=== PATIENT | female | born 1960 | race Caucasian/White ===

== ENCOUNTER → 2017-11-25 09:04 | Inpatient (IN) | END | DRG 92 | DX: G71.11 Myotonic muscular dystrophy (principal); S82.209A Unspecified fracture of shaft of unspecified tibia, initial encounter for closed fracture; M54.9 Dorsalgia, unspecified; E78.5 Hyperlipidemia, unspecified; F41.8 Other specified anxiety disorders; K21.9 Gastro-esophageal reflux disease without esophagitis; E03.9 Hypothyroidism, unspecified; E53.8 Deficiency of other specified B group vitamins; I50.9 Heart failure, unspecified; J44.9 Chronic obstructive pulmonary disease, unspecified; R73.9 Hyperglycemia, unspecified; I95.1 Orthostatic hypotension; D18.03 Hemangioma of intra-abdominal structures; M19.90 Unspecified osteoarthritis, unspecified site; Z88.1 Allergy status to other antibiotic agents; Z88.5 Allergy status to narcotic agent; Z91.048 Other nonmedicinal substance allergy status; W19.XXXA Unspecified fall, initial encounter ==

== ENCOUNTER → 2019-05-24 11:44 | Inpatient (IN) | payer MEDICAID ==
[2017-11-25] MEDS: Potassium Chloride 10% 20 MEQ/15 ML Soln 15 ML UD Cup PO SCH ×2 (13:54→19:21)
[2017-11-25] MEDS: Metoclopramide 10 MG Tab PO SCH (17:22)
[2017-11-25] MEDS: CEPHALEXIN 500 MG PO SCH (17:22)
[2017-11-25] MEDS: Ibuprofen 600 MG Tab PO SCH (17:23)
[2017-11-25] MEDS: Niacin 500 MG Tab PO SCH (17:23)
[2017-11-25] MEDS: Fludrocortisone 0.1 MG Tab PO SCH (19:20)
[2017-11-25] MEDS: Albuterol/Ipratropium 3.0-0.5 MG/3 ML Neb Soln NEB SCH (19:20)
[2017-11-25] MEDS: Chlorhexidine Gluconate 0.12% Oral Rinse 15 ML Cup MUCMEM SCH (19:21)
[2017-11-25] MEDS: LEVOTHYROXINE SODIUM 137 MCG PO SCH (19:21)
[2017-11-25] MEDS: Simvastatin 10 MG Tab PO SCH (19:22)
[2017-11-25] MEDS: buPROPion 100 MG Tab PO SCH (19:22)
[2017-11-26] MEDS: CEPHALEXIN 500 MG PO SCH ×2 (08:14→17:35)
[2017-11-26] MEDS: Metoclopramide 10 MG Tab PO SCH ×2 (08:14→17:35)
[2017-11-26] MEDS: Citalopram 20 MG Tab PO SCH (08:14)
[2017-11-26] MEDS: Albuterol/Ipratropium 3.0-0.5 MG/3 ML Neb Soln NEB SCH ×2 (08:15→19:20)
[2017-11-26] MEDS: Fludrocortisone 0.1 MG Tab PO SCH ×2 (08:15→19:20)
[2017-11-26] MEDS: Ibuprofen 600 MG Tab PO SCH ×2 (08:17→17:36)
[2017-11-26] MEDS: Niacin 500 MG Tab PO SCH ×2 (08:17→17:37)
[2017-11-26] MEDS: Omeprazole 20 MG Cap.CR PO SCH (08:18)
[2017-11-26] MEDS: Potassium Chloride 10% 20 MEQ/15 ML Soln 15 ML UD Cup PO SCH ×3 (08:19→19:21)
[2017-11-26] MEDS: Cholecalciferol (Vitamin D3) 25 MCG Tab PO SCH (08:20)
[2017-11-26] MEDS: Cyanocobalamin (Vitamin B12) 1,000 MCG Tab PO SCH (08:20)
[2017-11-26] MEDS: Chlorhexidine Gluconate 0.12% Oral Rinse 15 ML Cup MUCMEM SCH ×2 (08:21→19:20)
[2017-11-26] MEDS: LEVOTHYROXINE SODIUM 137 MCG PO SCH (19:20)
[2017-11-26] MEDS: buPROPion 100 MG Tab PO SCH (19:21)
[2017-11-26] MEDS: Simvastatin 10 MG Tab PO SCH (19:21)
[2017-11-26] MEDS: Acetaminophen 325 MG Tab PO PRN (19:23)
[2017-11-26] MEDS: traMADol 50 MG Tab PO PRN (19:24)
[2017-11-26] MEDS: Clotrimazole 1% Crm 30 GM Tube TOP PRN (19:27)
[2017-11-27] MEDS: Clotrimazole 1% Crm 30 GM Tube TOP PRN (07:30)
[2017-11-27] MEDS: Metoclopramide 10 MG Tab PO SCH ×2 (08:15→17:50)
[2017-11-27] MEDS: Citalopram 20 MG Tab PO SCH (08:16)
[2017-11-27] MEDS: Albuterol/Ipratropium 3.0-0.5 MG/3 ML Neb Soln NEB SCH ×2 (08:16→19:21)
[2017-11-27] MEDS: CEPHALEXIN 500 MG PO SCH ×2 (08:16→17:50)
[2017-11-27] MEDS: Fludrocortisone 0.1 MG Tab PO SCH ×2 (08:17→19:22)
[2017-11-27] MEDS: Niacin 500 MG Tab PO SCH ×2 (08:17→17:51)
[2017-11-27] MEDS: Ibuprofen 600 MG Tab PO SCH ×2 (08:17→17:50)
[2017-11-27] MEDS: Omeprazole 20 MG Cap.CR PO SCH (08:18)
[2017-11-27] MEDS: Potassium Chloride 10% 20 MEQ/15 ML Soln 15 ML UD Cup PO SCH ×3 (08:19→19:22)
[2017-11-27] MEDS: Cyanocobalamin (Vitamin B12) 1,000 MCG Tab PO SCH (08:20)
[2017-11-27] MEDS: Cholecalciferol (Vitamin D3) 25 MCG Tab PO SCH (08:20)
[2017-11-27] MEDS: Chlorhexidine Gluconate 0.12% Oral Rinse 15 ML Cup MUCMEM SCH ×2 (08:21→19:22)
[2017-11-27] MEDS: traMADol 50 MG Tab PO PRN (08:28)
[2017-11-27] MEDS: Acetaminophen 325 MG Tab PO PRN (08:30)
[2017-11-27] MEDS: LEVOTHYROXINE SODIUM 137 MCG PO SCH (19:22)
[2017-11-27] MEDS: Simvastatin 10 MG Tab PO SCH (19:23)
[2017-11-27] MEDS: buPROPion 100 MG Tab PO SCH (19:23)
[2017-11-28] MEDS: Clotrimazole 1% Crm 30 GM Tube TOP PRN ×2 (08:00→21:27)
[2017-11-28] MEDS: Citalopram 20 MG Tab PO SCH (08:23)
[2017-11-28] MEDS: Metoclopramide 10 MG Tab PO SCH ×2 (08:23→17:33)
[2017-11-28] MEDS: Albuterol/Ipratropium 3.0-0.5 MG/3 ML Neb Soln NEB SCH ×2 (08:24→19:13)
[2017-11-28] MEDS: Fludrocortisone 0.1 MG Tab PO SCH ×2 (08:24→19:13)
[2017-11-28] MEDS: CEPHALEXIN 500 MG PO SCH ×2 (08:24→17:33)
[2017-11-28] MEDS: Ibuprofen 600 MG Tab PO SCH ×2 (08:24→17:33)
[2017-11-28] MEDS: Niacin 500 MG Tab PO SCH ×2 (08:25→17:33)
[2017-11-28] MEDS: Cyanocobalamin (Vitamin B12) 1,000 MCG Tab PO SCH (08:25)
[2017-11-28] MEDS: Omeprazole 20 MG Cap.CR PO SCH (08:25)
[2017-11-28] MEDS: Cholecalciferol (Vitamin D3) 25 MCG Tab PO SCH (08:26)
[2017-11-28] MEDS: Chlorhexidine Gluconate 0.12% Oral Rinse 15 ML Cup MUCMEM SCH ×2 (08:26→19:14)
[2017-11-28] MEDS: Potassium Chloride 10% 20 MEQ/15 ML Soln 15 ML UD Cup PO SCH ×3 (08:26→19:14)
[2017-11-28] MEDS: Acetaminophen 325 MG Tab PO PRN (10:08)
[2017-11-28] MEDS: traMADol 50 MG Tab PO PRN (10:09)
[2017-11-28] MEDS: LEVOTHYROXINE SODIUM 137 MCG PO SCH (19:14)
[2017-11-28] MEDS: Simvastatin 10 MG Tab PO SCH (19:15)
[2017-11-28] MEDS: buPROPion 100 MG Tab PO SCH (19:15)
[2017-11-29] MEDS: Metoclopramide 10 MG Tab PO SCH ×2 (08:04→18:10)
[2017-11-29] MEDS: CEPHALEXIN 500 MG PO SCH ×2 (08:07→18:10)
[2017-11-29] MEDS: Albuterol/Ipratropium 3.0-0.5 MG/3 ML Neb Soln NEB SCH ×2 (08:07→19:09)
[2017-11-29] MEDS: Fludrocortisone 0.1 MG Tab PO SCH ×2 (08:07→19:09)
[2017-11-29] MEDS: Citalopram 20 MG Tab PO SCH (08:07)
[2017-11-29] MEDS: Niacin 500 MG Tab PO SCH ×2 (08:08→18:11)
[2017-11-29] MEDS: Ibuprofen 600 MG Tab PO SCH ×2 (08:08→18:10)
[2017-11-29] MEDS: Omeprazole 20 MG Cap.CR PO SCH (08:08)
[2017-11-29] MEDS: Potassium Chloride 10% 20 MEQ/15 ML Soln 15 ML UD Cup PO SCH ×3 (08:09→19:10)
[2017-11-29] MEDS: Cholecalciferol (Vitamin D3) 25 MCG Tab PO SCH (08:10)
[2017-11-29] MEDS: Chlorhexidine Gluconate 0.12% Oral Rinse 15 ML Cup MUCMEM SCH ×2 (08:10→19:10)
[2017-11-29] MEDS: Cyanocobalamin (Vitamin B12) 1,000 MCG Tab PO SCH (08:10)
[2017-11-29] MEDS: LEVOTHYROXINE SODIUM 137 MCG PO SCH (19:10)
[2017-11-29] MEDS: Simvastatin 10 MG Tab PO SCH (19:11)
[2017-11-29] MEDS: buPROPion 100 MG Tab PO SCH (19:11)
[2017-11-29] MEDS: Clotrimazole 1% Crm 30 GM Tube TOP PRN (20:35)
[2017-11-30] MEDS: CEPHALEXIN 500 MG PO SCH ×2 (08:02→17:11)
[2017-11-30] MEDS: Citalopram 20 MG Tab PO SCH (08:02)
[2017-11-30] MEDS: Metoclopramide 10 MG Tab PO SCH ×2 (08:02→16:53)
[2017-11-30] MEDS: Albuterol/Ipratropium 3.0-0.5 MG/3 ML Neb Soln NEB SCH ×2 (08:03→19:29)
[2017-11-30] MEDS: Ibuprofen 600 MG Tab PO SCH ×2 (08:03→17:11)
[2017-11-30] MEDS: Fludrocortisone 0.1 MG Tab PO SCH ×2 (08:03→19:30)
[2017-11-30] MEDS: Omeprazole 20 MG Cap.CR PO SCH (08:04)
[2017-11-30] MEDS: Potassium Chloride 10% 20 MEQ/15 ML Soln 15 ML UD Cup PO SCH ×3 (08:04→19:30)
[2017-11-30] MEDS: Cyanocobalamin (Vitamin B12) 1,000 MCG Tab PO SCH (08:04)
[2017-11-30] MEDS: Niacin 500 MG Tab PO SCH ×2 (08:04→17:12)
[2017-11-30] MEDS: Cholecalciferol (Vitamin D3) 25 MCG Tab PO SCH (08:05)
[2017-11-30] MEDS: Chlorhexidine Gluconate 0.12% Oral Rinse 15 ML Cup MUCMEM SCH ×2 (08:06→19:30)
[2017-11-30] MEDS: Clotrimazole 1% Crm 30 GM Tube TOP PRN ×2 (08:06→19:32)
[2017-11-30] MEDS: Albuterol/Ipratropium 3.0-0.5 MG/3 ML Neb Soln NEB PRN (19:29)
[2017-11-30] MEDS: LEVOTHYROXINE SODIUM 137 MCG PO SCH (19:30)
[2017-11-30] MEDS: Simvastatin 10 MG Tab PO SCH (19:31)
[2017-11-30] MEDS: buPROPion 100 MG Tab PO SCH (19:31)
[2017-12-01] MEDS: Citalopram 20 MG Tab PO SCH (08:02)
[2017-12-01] MEDS: Metoclopramide 10 MG Tab PO SCH ×2 (08:02→17:56)
[2017-12-01] MEDS: CEPHALEXIN 500 MG PO SCH ×2 (08:02→17:56)
[2017-12-01] MEDS: Fludrocortisone 0.1 MG Tab PO SCH ×2 (08:03→19:27)
[2017-12-01] MEDS: Albuterol/Ipratropium 3.0-0.5 MG/3 ML Neb Soln NEB SCH ×2 (08:03→19:26)
[2017-12-01] MEDS: Ibuprofen 600 MG Tab PO SCH ×2 (08:03→17:57)
[2017-12-01] MEDS: Niacin 500 MG Tab PO SCH ×2 (08:04→17:58)
[2017-12-01] MEDS: Omeprazole 20 MG Cap.CR PO SCH (08:04)
[2017-12-01] MEDS: Potassium Chloride 10% 20 MEQ/15 ML Soln 15 ML UD Cup PO SCH ×3 (08:04→19:29)
[2017-12-01] MEDS: Cholecalciferol (Vitamin D3) 25 MCG Tab PO SCH (08:05)
[2017-12-01] MEDS: Chlorhexidine Gluconate 0.12% Oral Rinse 15 ML Cup MUCMEM SCH ×2 (08:05→19:27)
[2017-12-01] MEDS: Cyanocobalamin (Vitamin B12) 1,000 MCG Tab PO SCH (08:05)
[2017-12-01] MEDS: Clotrimazole 1% Crm 30 GM Tube TOP PRN (08:06)
[2017-12-01] MEDS: LEVOTHYROXINE SODIUM 137 MCG PO SCH (19:27)
[2017-12-01] MEDS: buPROPion 100 MG Tab PO SCH (19:29)
[2017-12-01] MEDS: Simvastatin 10 MG Tab PO SCH (19:29)
[2017-12-02] MEDS: Clotrimazole 1% Crm 30 GM Tube TOP PRN ×2 (08:00→20:24)
[2017-12-02] MEDS: Albuterol/Ipratropium 3.0-0.5 MG/3 ML Neb Soln NEB SCH ×2 (08:06→19:23)
[2017-12-02] MEDS: Metoclopramide 10 MG Tab PO SCH ×2 (08:06→17:34)
[2017-12-02] MEDS: CEPHALEXIN 500 MG PO SCH ×2 (08:06→17:34)
[2017-12-02] MEDS: Citalopram 20 MG Tab PO SCH (08:06)
[2017-12-02] MEDS: Ibuprofen 600 MG Tab PO SCH ×2 (08:07→17:34)
[2017-12-02] MEDS: Fludrocortisone 0.1 MG Tab PO SCH ×2 (08:07→19:23)
[2017-12-02] MEDS: Niacin 500 MG Tab PO SCH ×2 (08:07→17:34)
[2017-12-02] MEDS: Cholecalciferol (Vitamin D3) 25 MCG Tab PO SCH (08:08)
[2017-12-02] MEDS: Omeprazole 20 MG Cap.CR PO SCH (08:08)
[2017-12-02] MEDS: Cyanocobalamin (Vitamin B12) 1,000 MCG Tab PO SCH (08:08)
[2017-12-02] MEDS: Potassium Chloride 10% 20 MEQ/15 ML Soln 15 ML UD Cup PO SCH ×3 (08:09→19:23)
[2017-12-02] MEDS: Chlorhexidine Gluconate 0.12% Oral Rinse 15 ML Cup MUCMEM SCH ×2 (08:09→19:23)
[2017-12-02] MEDS: LEVOTHYROXINE SODIUM 137 MCG PO SCH (19:23)
[2017-12-02] MEDS: buPROPion 100 MG Tab PO SCH (19:25)
[2017-12-02] MEDS: Simvastatin 10 MG Tab PO SCH (19:25)
[2017-12-03] MEDS: Citalopram 20 MG Tab PO SCH (08:04)
[2017-12-03] MEDS: CEPHALEXIN 500 MG PO SCH ×2 (08:04→17:53)
[2017-12-03] MEDS: Metoclopramide 10 MG Tab PO SCH ×2 (08:04→17:53)
[2017-12-03] MEDS: Albuterol/Ipratropium 3.0-0.5 MG/3 ML Neb Soln NEB SCH ×2 (08:05→19:13)
[2017-12-03] MEDS: Ibuprofen 600 MG Tab PO SCH ×2 (08:05→17:53)
[2017-12-03] MEDS: Fludrocortisone 0.1 MG Tab PO SCH ×2 (08:05→19:14)
[2017-12-03] MEDS: Omeprazole 20 MG Cap.CR PO SCH (08:06)
[2017-12-03] MEDS: Potassium Chloride 10% 20 MEQ/15 ML Soln 15 ML UD Cup PO SCH ×3 (08:08→19:15)
[2017-12-03] MEDS: Cyanocobalamin (Vitamin B12) 1,000 MCG Tab PO SCH (08:08)
[2017-12-03] MEDS: Cholecalciferol (Vitamin D3) 25 MCG Tab PO SCH (08:09)
[2017-12-03] MEDS: Chlorhexidine Gluconate 0.12% Oral Rinse 15 ML Cup MUCMEM SCH ×2 (08:10→19:15)
[2017-12-03] MEDS: Niacin 500 MG Tab PO SCH ×2 (09:15→17:54)
[2017-12-03] MEDS: Clotrimazole 1% Crm 30 GM Tube TOP PRN (19:12)
[2017-12-03] MEDS: buPROPion 100 MG Tab PO SCH (19:13)
[2017-12-03] MEDS: FLUCONAZOLE 150MG TABLET PO SCH (19:14)
[2017-12-03] MEDS: LEVOTHYROXINE SODIUM 137 MCG PO SCH (19:14)
[2017-12-03] MEDS: Simvastatin 10 MG Tab PO SCH (19:16)
[2017-12-04] MEDS: Citalopram 20 MG Tab PO SCH (07:54)
[2017-12-04] MEDS: Metoclopramide 10 MG Tab PO SCH ×2 (07:54→17:59)
[2017-12-04] MEDS: CEPHALEXIN 500 MG PO SCH ×2 (07:55→17:59)
[2017-12-04] MEDS: Albuterol/Ipratropium 3.0-0.5 MG/3 ML Neb Soln NEB SCH ×2 (07:55→19:26)
[2017-12-04] MEDS: Omeprazole 20 MG Cap.CR PO SCH (07:57)
[2017-12-04] MEDS: Fludrocortisone 0.1 MG Tab PO SCH ×2 (07:57→19:27)
[2017-12-04] MEDS: Ibuprofen 600 MG Tab PO SCH ×2 (07:57→17:59)
[2017-12-04] MEDS: Niacin 500 MG Tab PO SCH ×2 (07:57→18:00)
[2017-12-04] MEDS: Cyanocobalamin (Vitamin B12) 1,000 MCG Tab PO SCH (07:58)
[2017-12-04] MEDS: Cholecalciferol (Vitamin D3) 25 MCG Tab PO SCH (07:58)
[2017-12-04] MEDS: Chlorhexidine Gluconate 0.12% Oral Rinse 15 ML Cup MUCMEM SCH ×2 (08:00→19:28)
[2017-12-04] MEDS: Potassium Chloride 10% 20 MEQ/15 ML Soln 15 ML UD Cup PO SCH ×3 (08:00→19:28)
[2017-12-04] MEDS: Clotrimazole 1% Crm 30 GM Tube TOP PRN (08:00)
[2017-12-04] MEDS: buPROPion 100 MG Tab PO SCH (19:27)
[2017-12-04] MEDS: Simvastatin 10 MG Tab PO SCH (19:27)
[2017-12-04] MEDS: LEVOTHYROXINE SODIUM 137 MCG PO SCH (19:27)
[2017-12-05] MEDS: traMADol 50 MG Tab PO PRN ×2 (04:39→17:32)
[2017-12-05] MEDS: Acetaminophen 325 MG Tab PO PRN (04:40)
[2017-12-05] MEDS: Citalopram 20 MG Tab PO SCH (08:11)
[2017-12-05] MEDS: CEPHALEXIN 500 MG PO SCH ×2 (08:11→17:26)
[2017-12-05] MEDS: Metoclopramide 10 MG Tab PO SCH ×2 (08:11→17:26)
[2017-12-05] MEDS: Albuterol/Ipratropium 3.0-0.5 MG/3 ML Neb Soln NEB SCH ×2 (08:12→19:17)
[2017-12-05] MEDS: Ibuprofen 600 MG Tab PO SCH ×2 (08:13→17:27)
[2017-12-05] MEDS: Fludrocortisone 0.1 MG Tab PO SCH ×2 (08:13→19:17)
[2017-12-05] MEDS: Omeprazole 20 MG Cap.CR PO SCH (08:14)
[2017-12-05] MEDS: Niacin 500 MG Tab PO SCH ×2 (08:14→17:28)
[2017-12-05] MEDS: Potassium Chloride 10% 20 MEQ/15 ML Soln 15 ML UD Cup PO SCH ×3 (08:16→19:16)
[2017-12-05] MEDS: Cyanocobalamin (Vitamin B12) 1,000 MCG Tab PO SCH (08:17)
[2017-12-05] MEDS: Cholecalciferol (Vitamin D3) 25 MCG Tab PO SCH (08:18)
[2017-12-05] MEDS: Chlorhexidine Gluconate 0.12% Oral Rinse 15 ML Cup MUCMEM SCH ×2 (08:18→19:16)
[2017-12-05] MEDS: Simvastatin 10 MG Tab PO SCH (19:16)
[2017-12-05] MEDS: buPROPion 100 MG Tab PO SCH (19:16)
[2017-12-05] MEDS: LEVOTHYROXINE SODIUM 137 MCG PO SCH (19:16)
[2017-12-06] MEDS: Metoclopramide 10 MG Tab PO SCH ×2 (07:31→17:13)
[2017-12-06] MEDS: CEPHALEXIN 500 MG PO SCH ×2 (07:31→17:13)
[2017-12-06] MEDS: Fludrocortisone 0.1 MG Tab PO SCH ×2 (07:31→19:12)
[2017-12-06] MEDS: Citalopram 20 MG Tab PO SCH (07:31)
[2017-12-06] MEDS: Albuterol/Ipratropium 3.0-0.5 MG/3 ML Neb Soln NEB SCH ×2 (07:31→19:18)
[2017-12-06] MEDS: Ibuprofen 600 MG Tab PO SCH ×2 (07:32→17:13)
[2017-12-06] MEDS: Potassium Chloride 10% 20 MEQ/15 ML Soln 15 ML UD Cup PO SCH ×3 (07:33→19:16)
[2017-12-06] MEDS: Omeprazole 20 MG Cap.CR PO SCH (07:33)
[2017-12-06] MEDS: Niacin 500 MG Tab PO SCH ×2 (07:33→17:14)
[2017-12-06] MEDS: Cholecalciferol (Vitamin D3) 25 MCG Tab PO SCH (07:34)
[2017-12-06] MEDS: Cyanocobalamin (Vitamin B12) 1,000 MCG Tab PO SCH (07:34)
[2017-12-06] MEDS: Chlorhexidine Gluconate 0.12% Oral Rinse 15 ML Cup MUCMEM SCH ×2 (09:35→19:15)
[2017-12-06] MEDS: LEVOTHYROXINE SODIUM 137 MCG PO SCH (19:12)
[2017-12-06] MEDS: FLUCONAZOLE 150MG TABLET PO SCH (19:13)
[2017-12-06] MEDS: buPROPion 100 MG Tab PO SCH (19:17)
[2017-12-06] MEDS: Simvastatin 10 MG Tab PO SCH (19:17)
[2017-12-06] MEDS: Clotrimazole 1% Crm 30 GM Tube TOP PRN (19:53)
[2017-12-07] MEDS: traMADol 50 MG Tab PO PRN ×2 (05:32→18:24)
[2017-12-07] MEDS: Acetaminophen 325 MG Tab PO PRN ×2 (05:34→18:23)
[2017-12-07] MEDS: Ibuprofen 600 MG Tab PO SCH ×2 (07:29→17:09)
[2017-12-07] MEDS: Metoclopramide 10 MG Tab PO SCH ×2 (07:29→17:09)
[2017-12-07] MEDS: CEPHALEXIN 500 MG PO SCH ×2 (07:29→17:09)
[2017-12-07] MEDS: Citalopram 20 MG Tab PO SCH (07:29)
[2017-12-07] MEDS: Albuterol/Ipratropium 3.0-0.5 MG/3 ML Neb Soln NEB SCH ×2 (07:29→19:27)
[2017-12-07] MEDS: Fludrocortisone 0.1 MG Tab PO SCH ×2 (07:29→19:27)
[2017-12-07] MEDS: Niacin 500 MG Tab PO SCH ×2 (07:30→17:09)
[2017-12-07] MEDS: Omeprazole 20 MG Cap.CR PO SCH (07:30)
[2017-12-07] MEDS: Potassium Chloride 10% 20 MEQ/15 ML Soln 15 ML UD Cup PO SCH ×3 (07:30→19:29)
[2017-12-07] MEDS: Cyanocobalamin (Vitamin B12) 1,000 MCG Tab PO SCH (07:31)
[2017-12-07] MEDS: Cholecalciferol (Vitamin D3) 25 MCG Tab PO SCH (07:31)
[2017-12-07] MEDS: Chlorhexidine Gluconate 0.12% Oral Rinse 15 ML Cup MUCMEM SCH ×2 (08:09→19:27)
[2017-12-07] MEDS: LEVOTHYROXINE SODIUM 137 MCG PO SCH (19:28)
[2017-12-07] MEDS: Simvastatin 10 MG Tab PO SCH (19:30)
[2017-12-07] MEDS: buPROPion 100 MG Tab PO SCH (19:30)
[2017-12-07] MEDS: Clotrimazole 1% Crm 30 GM Tube TOP PRN (19:34)
[2017-12-08] MEDS: Metoclopramide 10 MG Tab PO SCH ×2 (07:21→17:57)
[2017-12-08] MEDS: Albuterol/Ipratropium 3.0-0.5 MG/3 ML Neb Soln NEB SCH ×2 (07:21→19:22)
[2017-12-08] MEDS: Fludrocortisone 0.1 MG Tab PO SCH ×2 (07:21→19:21)
[2017-12-08] MEDS: CEPHALEXIN 500 MG PO SCH ×2 (07:21→17:57)
[2017-12-08] MEDS: Citalopram 20 MG Tab PO SCH (07:21)
[2017-12-08] MEDS: Niacin 500 MG Tab PO SCH ×2 (07:22→17:58)
[2017-12-08] MEDS: Ibuprofen 600 MG Tab PO SCH ×2 (07:22→17:57)
[2017-12-08] MEDS: Omeprazole 20 MG Cap.CR PO SCH (07:22)
[2017-12-08] MEDS: Acetaminophen 325 MG Tab PO PRN ×2 (07:23→19:18)
[2017-12-08] MEDS: Potassium Chloride 10% 20 MEQ/15 ML Soln 15 ML UD Cup PO SCH ×3 (07:23→19:20)
[2017-12-08] MEDS: Cyanocobalamin (Vitamin B12) 1,000 MCG Tab PO SCH (07:23)
[2017-12-08] MEDS: Cholecalciferol (Vitamin D3) 25 MCG Tab PO SCH (07:23)
[2017-12-08] MEDS: traMADol 50 MG Tab PO PRN ×2 (07:24→19:17)
[2017-12-08] MEDS: Chlorhexidine Gluconate 0.12% Oral Rinse 15 ML Cup MUCMEM SCH ×2 (08:31→19:22)
[2017-12-08] MEDS: Simvastatin 10 MG Tab PO SCH (19:21)
[2017-12-08] MEDS: LEVOTHYROXINE SODIUM 137 MCG PO SCH (19:21)
[2017-12-08] MEDS: buPROPion 100 MG Tab PO SCH (19:21)
[2017-12-09] MEDS: Metoclopramide 10 MG Tab PO SCH ×2 (08:10→17:24)
[2017-12-09] MEDS: CEPHALEXIN 500 MG PO SCH ×2 (08:11→17:24)
[2017-12-09] MEDS: Citalopram 20 MG Tab PO SCH (08:11)
[2017-12-09] MEDS: Fludrocortisone 0.1 MG Tab PO SCH ×2 (08:12→19:17)
[2017-12-09] MEDS: Ibuprofen 600 MG Tab PO SCH ×2 (08:12→17:24)
[2017-12-09] MEDS: Albuterol/Ipratropium 3.0-0.5 MG/3 ML Neb Soln NEB SCH ×2 (08:12→19:14)
[2017-12-09] MEDS: Omeprazole 20 MG Cap.CR PO SCH (08:13)
[2017-12-09] MEDS: Niacin 500 MG Tab PO SCH ×2 (08:13→17:25)
[2017-12-09] MEDS: Cholecalciferol (Vitamin D3) 25 MCG Tab PO SCH (08:14)
[2017-12-09] MEDS: Chlorhexidine Gluconate 0.12% Oral Rinse 15 ML Cup MUCMEM SCH ×2 (08:14→19:18)
[2017-12-09] MEDS: Cyanocobalamin (Vitamin B12) 1,000 MCG Tab PO SCH (08:14)
[2017-12-09] MEDS: Potassium Chloride 10% 20 MEQ/15 ML Soln 15 ML UD Cup PO SCH ×3 (08:15→19:19)
[2017-12-09] MEDS: LEVOTHYROXINE SODIUM 137 MCG PO SCH (19:17)
[2017-12-09] MEDS: Clotrimazole 1% Crm 30 GM Tube TOP PRN (19:18)
[2017-12-09] MEDS: buPROPion 100 MG Tab PO SCH (19:18)
[2017-12-09] MEDS: Simvastatin 10 MG Tab PO SCH (19:19)
[2017-12-09] MEDS: Acetaminophen 325 MG Tab PO PRN (19:20)
[2017-12-09] MEDS: traMADol 50 MG Tab PO PRN (19:26)
[2017-12-10] MEDS: Metoclopramide 10 MG Tab PO SCH ×2 (07:57→17:52)
[2017-12-10] MEDS: Fludrocortisone 0.1 MG Tab PO SCH ×2 (07:58→19:54)
[2017-12-10] MEDS: Albuterol/Ipratropium 3.0-0.5 MG/3 ML Neb Soln NEB SCH ×2 (07:58→19:54)
[2017-12-10] MEDS: Citalopram 20 MG Tab PO SCH (07:58)
[2017-12-10] MEDS: CEPHALEXIN 500 MG PO SCH ×2 (07:58→17:52)
[2017-12-10] MEDS: Ibuprofen 600 MG Tab PO SCH ×2 (07:59→17:52)
[2017-12-10] MEDS: Niacin 500 MG Tab PO SCH ×2 (08:00→18:00)
[2017-12-10] MEDS: Omeprazole 20 MG Cap.CR PO SCH (08:00)
[2017-12-10] MEDS: Potassium Chloride 10% 20 MEQ/15 ML Soln 15 ML UD Cup PO SCH ×3 (08:01→19:55)
[2017-12-10] MEDS: Cyanocobalamin (Vitamin B12) 1,000 MCG Tab PO SCH (08:03)
[2017-12-10] MEDS: Cholecalciferol (Vitamin D3) 25 MCG Tab PO SCH (08:03)
[2017-12-10] MEDS: Chlorhexidine Gluconate 0.12% Oral Rinse 15 ML Cup MUCMEM SCH ×2 (08:04→19:55)
[2017-12-10] MEDS: Acetaminophen 325 MG Tab PO PRN (08:05)
[2017-12-10] MEDS: traMADol 50 MG Tab PO PRN ×2 (09:53→18:03)
[2017-12-10 11:39] LABS: CHLORIDE,CL 107 mmol/L (98-107); SODIUM,NA 145 mmol/L (136-145)
--- NOTE | 2017-12-10 13:09 | PCM.SN ---
- Free Text/Narrative Note: Patient with recent progressive dependent edema and secondary bilateral ankle pain. No history of chest pain, anginal complaints, dyspnea, recent fall, recent injuries, etc.. CBC, basic metabolic panel, uric acid level, and BNP ordered with results reviewed. One 40 mg dose of IM Lasix today with initiation of low-dose oral Lasix at 20 mg by mouth every morning starting tomorrow with caution. Vital signs are stable including blood pressure with no evidence of hypotension. Additional dose of potassium chloride today with otherwise continuation of previous potassium chloride regimen. Basic metabolic panel, uric acid level, and magnesium level ordered to be repeated in 6 days. Continue to observe the patient closely by nursing staff with follow-up prison rounds scheduled for 12/29.
[2017-12-10] MEDS: LEVOTHYROXINE SODIUM 137 MCG PO SCH (19:54)
[2017-12-10] MEDS: buPROPion 100 MG Tab PO SCH (19:55)
[2017-12-10] MEDS: Simvastatin 10 MG Tab PO SCH (19:56)
[2017-12-11] MEDS: Metoclopramide 10 MG Tab PO SCH ×2 (07:50→17:37)
[2017-12-11] MEDS: CEPHALEXIN 500 MG PO SCH ×2 (07:50→17:37)
[2017-12-11] MEDS: Albuterol/Ipratropium 3.0-0.5 MG/3 ML Neb Soln NEB SCH ×2 (07:50→19:42)
[2017-12-11] MEDS: Citalopram 20 MG Tab PO SCH (07:50)
[2017-12-11] MEDS: Fludrocortisone 0.1 MG Tab PO SCH ×2 (07:51→19:43)
[2017-12-11] MEDS: Niacin 500 MG Tab PO SCH ×2 (07:52→17:39)
[2017-12-11] MEDS: Ibuprofen 600 MG Tab PO SCH ×2 (07:52→17:37)
[2017-12-11] MEDS: Omeprazole 20 MG Cap.CR PO SCH (07:53)
[2017-12-11] MEDS: Potassium Chloride 10% 20 MEQ/15 ML Soln 15 ML UD Cup PO SCH ×3 (07:53→19:44)
[2017-12-11] MEDS: Cyanocobalamin (Vitamin B12) 1,000 MCG Tab PO SCH (07:54)
[2017-12-11] MEDS: Cholecalciferol (Vitamin D3) 25 MCG Tab PO SCH (07:55)
[2017-12-11] MEDS: Acetaminophen 325 MG Tab PO PRN ×2 (07:57→17:53)
[2017-12-11] MEDS: Furosemide 20 MG Tab PO SCH (08:15)
[2017-12-11] MEDS: Chlorhexidine Gluconate 0.12% Oral Rinse 15 ML Cup MUCMEM SCH ×2 (08:16→19:43)
[2017-12-11] MEDS: traMADol 50 MG Tab PO PRN (17:50)
[2017-12-11] MEDS: buPROPion 100 MG Tab PO SCH (19:43)
[2017-12-11] MEDS: LEVOTHYROXINE SODIUM 137 MCG PO SCH (19:43)
[2017-12-11] MEDS: Simvastatin 10 MG Tab PO SCH (19:43)
[2017-12-12] MEDS: Metoclopramide 10 MG Tab PO SCH ×2 (08:14→17:53)
[2017-12-12] MEDS: CEPHALEXIN 500 MG PO SCH ×2 (08:14→17:53)
[2017-12-12] MEDS: Citalopram 20 MG Tab PO SCH (08:14)
[2017-12-12] MEDS: Fludrocortisone 0.1 MG Tab PO SCH ×2 (08:15→19:59)
[2017-12-12] MEDS: Niacin 500 MG Tab PO SCH ×2 (08:15→17:54)
[2017-12-12] MEDS: Furosemide 20 MG Tab PO SCH (08:15)
[2017-12-12] MEDS: Potassium Chloride 10% 20 MEQ/15 ML Soln 15 ML UD Cup PO SCH ×3 (08:15→19:59)
[2017-12-12] MEDS: Ibuprofen 600 MG Tab PO SCH ×2 (08:15→17:53)
[2017-12-12] MEDS: Albuterol/Ipratropium 3.0-0.5 MG/3 ML Neb Soln NEB SCH ×2 (08:15→19:59)
[2017-12-12] MEDS: Omeprazole 20 MG Cap.CR PO SCH (08:15)
[2017-12-12] MEDS: Cyanocobalamin (Vitamin B12) 1,000 MCG Tab PO SCH (08:16)
[2017-12-12] MEDS: Cholecalciferol (Vitamin D3) 25 MCG Tab PO SCH (08:16)
[2017-12-12] MEDS: Chlorhexidine Gluconate 0.12% Oral Rinse 15 ML Cup MUCMEM SCH ×2 (08:18→19:59)
[2017-12-12] MEDS: traMADol 50 MG Tab PO PRN (13:30)
[2017-12-12] MEDS: Acetaminophen 325 MG Tab PO PRN (13:31)
[2017-12-12] MEDS: LEVOTHYROXINE SODIUM 137 MCG PO SCH (19:59)
[2017-12-12] MEDS: Simvastatin 10 MG Tab PO SCH (20:00)
[2017-12-12] MEDS: buPROPion 100 MG Tab PO SCH (20:00)
[2017-12-13] MEDS: Citalopram 20 MG Tab PO SCH (08:18)
[2017-12-13] MEDS: CEPHALEXIN 500 MG PO SCH ×2 (08:18→17:26)
[2017-12-13] MEDS: Albuterol/Ipratropium 3.0-0.5 MG/3 ML Neb Soln NEB SCH ×2 (08:18→19:14)
[2017-12-13] MEDS: Fludrocortisone 0.1 MG Tab PO SCH ×2 (08:18→19:14)
[2017-12-13] MEDS: Metoclopramide 10 MG Tab PO SCH ×2 (08:18→17:26)
[2017-12-13] MEDS: Ibuprofen 600 MG Tab PO SCH ×2 (08:19→17:26)
[2017-12-13] MEDS: Furosemide 20 MG Tab PO SCH (08:19)
[2017-12-13] MEDS: Omeprazole 20 MG Cap.CR PO SCH (08:20)
[2017-12-13] MEDS: Cyanocobalamin (Vitamin B12) 1,000 MCG Tab PO SCH (08:20)
[2017-12-13] MEDS: Niacin 500 MG Tab PO SCH ×2 (08:20→17:26)
[2017-12-13] MEDS: Cholecalciferol (Vitamin D3) 25 MCG Tab PO SCH (08:21)
[2017-12-13] MEDS: Chlorhexidine Gluconate 0.12% Oral Rinse 15 ML Cup MUCMEM SCH ×2 (08:21→19:14)
[2017-12-13] MEDS: Potassium Chloride 10% 20 MEQ/15 ML Soln 15 ML UD Cup PO SCH ×3 (08:21→19:13)
[2017-12-13] MEDS: Acetaminophen 325 MG Tab PO PRN (14:26)
[2017-12-13] MEDS: traMADol 50 MG Tab PO PRN (14:27)
[2017-12-13] MEDS: Simvastatin 10 MG Tab PO SCH (19:14)
[2017-12-13] MEDS: LEVOTHYROXINE SODIUM 137 MCG PO SCH (19:14)
[2017-12-13] MEDS: buPROPion 100 MG Tab PO SCH (19:14)
[2017-12-14] MEDS: Citalopram 20 MG Tab PO SCH (08:04)
[2017-12-14] MEDS: CEPHALEXIN 500 MG PO SCH ×2 (08:04→17:20)
[2017-12-14] MEDS: Metoclopramide 10 MG Tab PO SCH ×2 (08:04→17:20)
[2017-12-14] MEDS: Albuterol/Ipratropium 3.0-0.5 MG/3 ML Neb Soln NEB SCH ×2 (08:05→20:05)
[2017-12-14] MEDS: Furosemide 20 MG Tab PO SCH (08:05)
[2017-12-14] MEDS: Ibuprofen 600 MG Tab PO SCH ×2 (08:05→17:20)
[2017-12-14] MEDS: Fludrocortisone 0.1 MG Tab PO SCH ×2 (08:05→20:05)
[2017-12-14] MEDS: Niacin 500 MG Tab PO SCH ×2 (08:06→17:21)
[2017-12-14] MEDS: Omeprazole 20 MG Cap.CR PO SCH (08:06)
[2017-12-14] MEDS: Cholecalciferol (Vitamin D3) 25 MCG Tab PO SCH (08:06)
[2017-12-14] MEDS: Cyanocobalamin (Vitamin B12) 1,000 MCG Tab PO SCH (08:06)
[2017-12-14] MEDS: Chlorhexidine Gluconate 0.12% Oral Rinse 15 ML Cup MUCMEM SCH ×2 (08:07→20:06)
[2017-12-14] MEDS: Potassium Chloride 10% 20 MEQ/15 ML Soln 15 ML UD Cup PO SCH ×3 (08:07→20:06)
[2017-12-14] MEDS: LEVOTHYROXINE SODIUM 137 MCG PO SCH (20:05)
[2017-12-14] MEDS: buPROPion 100 MG Tab PO SCH (20:06)
[2017-12-14] MEDS: Simvastatin 10 MG Tab PO SCH (20:07)
[2017-12-14] MEDS: Acetaminophen 325 MG Tab PO PRN (22:31)
[2017-12-14] MEDS: traMADol 50 MG Tab PO PRN (22:33)
[2017-12-15] MEDS: CEPHALEXIN 500 MG PO SCH ×2 (07:26→17:20)
[2017-12-15] MEDS: Metoclopramide 10 MG Tab PO SCH ×2 (07:26→17:20)
[2017-12-15] MEDS: Albuterol/Ipratropium 3.0-0.5 MG/3 ML Neb Soln NEB SCH ×2 (07:26→19:29)
[2017-12-15] MEDS: Fludrocortisone 0.1 MG Tab PO SCH ×2 (07:26→19:29)
[2017-12-15] MEDS: Citalopram 20 MG Tab PO SCH (07:26)
[2017-12-15] MEDS: Niacin 500 MG Tab PO SCH ×2 (07:27→17:22)
[2017-12-15] MEDS: Ibuprofen 600 MG Tab PO SCH ×2 (07:27→17:21)
[2017-12-15] MEDS: Furosemide 20 MG Tab PO SCH (07:27)
[2017-12-15] MEDS: Cyanocobalamin (Vitamin B12) 1,000 MCG Tab PO SCH (07:28)
[2017-12-15] MEDS: Omeprazole 20 MG Cap.CR PO SCH (07:28)
[2017-12-15] MEDS: Cholecalciferol (Vitamin D3) 25 MCG Tab PO SCH (07:28)
[2017-12-15] MEDS: Potassium Chloride 10% 20 MEQ/15 ML Soln 15 ML UD Cup PO SCH ×3 (07:28→19:30)
[2017-12-15] MEDS: traMADol 50 MG Tab PO PRN ×2 (07:33→17:23)
[2017-12-15] MEDS: Acetaminophen 325 MG Tab PO PRN ×2 (07:34→17:22)
[2017-12-15] MEDS: Chlorhexidine Gluconate 0.12% Oral Rinse 15 ML Cup MUCMEM SCH ×2 (08:08→19:31)
[2017-12-15] MEDS: LEVOTHYROXINE SODIUM 137 MCG PO SCH (19:29)
[2017-12-15] MEDS: buPROPion 100 MG Tab PO SCH (19:29)
[2017-12-15] MEDS: Simvastatin 10 MG Tab PO SCH (19:30)
[2017-12-16] MEDS: CEPHALEXIN 500 MG PO SCH ×2 (07:23→17:12)
[2017-12-16] MEDS: Albuterol/Ipratropium 3.0-0.5 MG/3 ML Neb Soln NEB SCH ×2 (07:23→19:29)
[2017-12-16] MEDS: Citalopram 20 MG Tab PO SCH (07:23)
[2017-12-16] MEDS: Metoclopramide 10 MG Tab PO SCH ×2 (07:23→17:12)
[2017-12-16] MEDS: Fludrocortisone 0.1 MG Tab PO SCH ×2 (07:23→19:29)
[2017-12-16] MEDS: Furosemide 20 MG Tab PO SCH (07:24)
[2017-12-16] MEDS: Omeprazole 20 MG Cap.CR PO SCH (07:24)
[2017-12-16] MEDS: Niacin 500 MG Tab PO SCH ×2 (07:24→17:12)
[2017-12-16] MEDS: Ibuprofen 600 MG Tab PO SCH ×2 (07:24→17:12)
[2017-12-16] MEDS: Potassium Chloride 10% 20 MEQ/15 ML Soln 15 ML UD Cup PO SCH ×3 (07:25→19:29)
[2017-12-16] MEDS: Cyanocobalamin (Vitamin B12) 1,000 MCG Tab PO SCH (07:25)
[2017-12-16] MEDS: Cholecalciferol (Vitamin D3) 25 MCG Tab PO SCH (07:25)
[2017-12-16] MEDS: Acetaminophen 325 MG Tab PO PRN ×2 (07:57→19:31)
[2017-12-16] MEDS: traMADol 50 MG Tab PO PRN ×2 (07:57→19:32)
[2017-12-16 08:42] LABS: CHLORIDE,CL 104 mmol/L (98-107); SODIUM,NA 143 mmol/L (136-145)
[2017-12-16] MEDS: Chlorhexidine Gluconate 0.12% Oral Rinse 15 ML Cup MUCMEM SCH ×2 (09:07→19:29)
[2017-12-16] MEDS: LEVOTHYROXINE SODIUM 137 MCG PO SCH (19:29)
[2017-12-16] MEDS: buPROPion 100 MG Tab PO SCH (19:30)
[2017-12-16] MEDS: Simvastatin 10 MG Tab PO SCH (19:30)
[2017-12-17] MEDS: Metoclopramide 10 MG Tab PO SCH ×2 (07:33→17:11)
[2017-12-17] MEDS: Ibuprofen 600 MG Tab PO SCH ×2 (07:34→17:11)
[2017-12-17] MEDS: Fludrocortisone 0.1 MG Tab PO SCH ×2 (07:34→19:07)
[2017-12-17] MEDS: Citalopram 20 MG Tab PO SCH (07:34)
[2017-12-17] MEDS: CEPHALEXIN 500 MG PO SCH ×2 (07:34→17:11)
[2017-12-17] MEDS: Albuterol/Ipratropium 3.0-0.5 MG/3 ML Neb Soln NEB SCH ×2 (07:34→19:06)
[2017-12-17] MEDS: Furosemide 20 MG Tab PO SCH (07:34)
[2017-12-17] MEDS: Niacin 500 MG Tab PO SCH ×2 (07:35→17:11)
[2017-12-17] MEDS: Omeprazole 20 MG Cap.CR PO SCH (07:35)
[2017-12-17] MEDS: Potassium Chloride 10% 20 MEQ/15 ML Soln 15 ML UD Cup PO SCH ×3 (07:35→19:07)
[2017-12-17] MEDS: Cyanocobalamin (Vitamin B12) 1,000 MCG Tab PO SCH (07:35)
[2017-12-17] MEDS: Cholecalciferol (Vitamin D3) 25 MCG Tab PO SCH (07:36)
[2017-12-17] MEDS: Acetaminophen 325 MG Tab PO PRN ×2 (07:36→19:09)
[2017-12-17] MEDS: traMADol 50 MG Tab PO PRN ×2 (07:37→19:09)
[2017-12-17] MEDS: Chlorhexidine Gluconate 0.12% Oral Rinse 15 ML Cup MUCMEM SCH ×2 (09:08→19:07)
[2017-12-17] MEDS: Simvastatin 10 MG Tab PO SCH (19:07)
[2017-12-17] MEDS: buPROPion 100 MG Tab PO SCH (19:07)
[2017-12-17] MEDS: LEVOTHYROXINE SODIUM 137 MCG PO SCH (19:07)
[2017-12-18] MEDS: Citalopram 20 MG Tab PO SCH (08:24)
[2017-12-18] MEDS: CEPHALEXIN 500 MG PO SCH ×2 (08:24→17:48)
[2017-12-18] MEDS: Metoclopramide 10 MG Tab PO SCH ×2 (08:24→17:47)
[2017-12-18] MEDS: Fludrocortisone 0.1 MG Tab PO SCH ×2 (08:25→19:37)
[2017-12-18] MEDS: Albuterol/Ipratropium 3.0-0.5 MG/3 ML Neb Soln NEB SCH ×2 (08:25→19:37)
[2017-12-18] MEDS: Ibuprofen 600 MG Tab PO SCH ×2 (08:26→17:48)
[2017-12-18] MEDS: Furosemide 20 MG Tab PO SCH (08:26)
[2017-12-18] MEDS: Omeprazole 20 MG Cap.CR PO SCH (08:27)
[2017-12-18] MEDS: Niacin 500 MG Tab PO SCH ×2 (08:27→17:49)
[2017-12-18] MEDS: Potassium Chloride 10% 20 MEQ/15 ML Soln 15 ML UD Cup PO SCH ×3 (08:28→19:37)
[2017-12-18] MEDS: Cyanocobalamin (Vitamin B12) 1,000 MCG Tab PO SCH (08:29)
[2017-12-18] MEDS: Cholecalciferol (Vitamin D3) 25 MCG Tab PO SCH (08:29)
[2017-12-18] MEDS: Chlorhexidine Gluconate 0.12% Oral Rinse 15 ML Cup MUCMEM SCH ×2 (08:30→19:37)
[2017-12-18] MEDS: traMADol 50 MG Tab PO PRN (17:52)
[2017-12-18] MEDS: LEVOTHYROXINE SODIUM 137 MCG PO SCH (19:37)
[2017-12-18] MEDS: Simvastatin 10 MG Tab PO SCH (19:38)
[2017-12-18] MEDS: buPROPion 100 MG Tab PO SCH (19:38)
[2017-12-19] MEDS: Fludrocortisone 0.1 MG Tab PO SCH ×2 (07:52→19:42)
[2017-12-19] MEDS: Citalopram 20 MG Tab PO SCH (07:52)
[2017-12-19] MEDS: Metoclopramide 10 MG Tab PO SCH ×2 (07:52→17:38)
[2017-12-19] MEDS: CEPHALEXIN 500 MG PO SCH ×2 (07:52→17:38)
[2017-12-19] MEDS: Albuterol/Ipratropium 3.0-0.5 MG/3 ML Neb Soln NEB SCH ×2 (07:52→19:42)
[2017-12-19] MEDS: Furosemide 20 MG Tab PO SCH (07:53)
[2017-12-19] MEDS: Niacin 500 MG Tab PO SCH ×2 (07:53→17:39)
[2017-12-19] MEDS: Ibuprofen 600 MG Tab PO SCH ×2 (07:53→17:38)
[2017-12-19] MEDS: Omeprazole 20 MG Cap.CR PO SCH (07:53)
[2017-12-19] MEDS: Cholecalciferol (Vitamin D3) 25 MCG Tab PO SCH (07:54)
[2017-12-19] MEDS: Potassium Chloride 10% 20 MEQ/15 ML Soln 15 ML UD Cup PO SCH ×3 (07:54→19:44)
[2017-12-19] MEDS: Cyanocobalamin (Vitamin B12) 1,000 MCG Tab PO SCH (07:54)
[2017-12-19] MEDS: Chlorhexidine Gluconate 0.12% Oral Rinse 15 ML Cup MUCMEM SCH ×2 (08:14→19:43)
[2017-12-19] MEDS: LEVOTHYROXINE SODIUM 137 MCG PO SCH (19:42)
[2017-12-19] MEDS: Simvastatin 10 MG Tab PO SCH (19:45)
[2017-12-19] MEDS: buPROPion 100 MG Tab PO SCH (19:45)
[2017-12-20] MEDS: Acetaminophen 325 MG Tab PO PRN ×2 (03:18→19:43)
[2017-12-20] MEDS: Metoclopramide 10 MG Tab PO SCH ×2 (08:14→17:52)
[2017-12-20] MEDS: Citalopram 20 MG Tab PO SCH (08:14)
[2017-12-20] MEDS: Furosemide 20 MG Tab PO SCH (08:15)
[2017-12-20] MEDS: CEPHALEXIN 500 MG PO SCH ×2 (08:15→17:52)
[2017-12-20] MEDS: Fludrocortisone 0.1 MG Tab PO SCH ×2 (08:15→19:37)
[2017-12-20] MEDS: Ibuprofen 600 MG Tab PO SCH ×2 (08:15→17:53)
[2017-12-20] MEDS: Omeprazole 20 MG Cap.CR PO SCH (08:16)
[2017-12-20] MEDS: Albuterol/Ipratropium 3.0-0.5 MG/3 ML Neb Soln NEB SCH ×2 (08:16→19:35)
[2017-12-20] MEDS: Niacin 500 MG Tab PO SCH ×2 (08:16→17:53)
[2017-12-20] MEDS: Potassium Chloride 10% 20 MEQ/15 ML Soln 15 ML UD Cup PO SCH ×3 (08:17→19:39)
[2017-12-20] MEDS: Cyanocobalamin (Vitamin B12) 1,000 MCG Tab PO SCH (08:18)
[2017-12-20] MEDS: Cholecalciferol (Vitamin D3) 25 MCG Tab PO SCH (08:18)
[2017-12-20] MEDS: Chlorhexidine Gluconate 0.12% Oral Rinse 15 ML Cup MUCMEM SCH ×2 (08:19→19:38)
[2017-12-20] MEDS: LEVOTHYROXINE SODIUM 137 MCG PO SCH (19:37)
[2017-12-20] MEDS: buPROPion 100 MG Tab PO SCH (19:39)
[2017-12-20] MEDS: Simvastatin 10 MG Tab PO SCH (19:40)
[2017-12-20] MEDS: traMADol 50 MG Tab PO PRN (19:42)
[2017-12-21] MEDS: Metoclopramide 10 MG Tab PO SCH ×2 (08:04→17:48)
[2017-12-21] MEDS: Citalopram 20 MG Tab PO SCH (08:04)
[2017-12-21] MEDS: Fludrocortisone 0.1 MG Tab PO SCH ×2 (08:05→19:30)
[2017-12-21] MEDS: Omeprazole 20 MG Cap.CR PO SCH (08:05)
[2017-12-21] MEDS: Furosemide 20 MG Tab PO SCH (08:05)
[2017-12-21] MEDS: Ibuprofen 600 MG Tab PO SCH ×2 (08:05→17:49)
[2017-12-21] MEDS: CEPHALEXIN 500 MG PO SCH ×2 (08:05→17:48)
[2017-12-21] MEDS: Niacin 500 MG Tab PO SCH ×2 (08:06→17:49)
[2017-12-21] MEDS: Albuterol/Ipratropium 3.0-0.5 MG/3 ML Neb Soln NEB SCH ×2 (08:06→19:29)
[2017-12-21] MEDS: Cyanocobalamin (Vitamin B12) 1,000 MCG Tab PO SCH (08:07)
[2017-12-21] MEDS: Potassium Chloride 10% 20 MEQ/15 ML Soln 15 ML UD Cup PO SCH ×3 (08:07→19:31)
[2017-12-21] MEDS: Cholecalciferol (Vitamin D3) 25 MCG Tab PO SCH (08:08)
[2017-12-21] MEDS: Chlorhexidine Gluconate 0.12% Oral Rinse 15 ML Cup MUCMEM SCH ×2 (08:08→19:30)
[2017-12-21] MEDS: LEVOTHYROXINE SODIUM 137 MCG PO SCH (19:30)
[2017-12-21] MEDS: Simvastatin 10 MG Tab PO SCH (19:32)
[2017-12-21] MEDS: buPROPion 100 MG Tab PO SCH (19:32)
[2017-12-22] MEDS: Metoclopramide 10 MG Tab PO SCH ×2 (08:12→17:31)
[2017-12-22] MEDS: Citalopram 20 MG Tab PO SCH (08:12)
[2017-12-22] MEDS: Albuterol/Ipratropium 3.0-0.5 MG/3 ML Neb Soln NEB SCH ×2 (08:13→19:21)
[2017-12-22] MEDS: Ibuprofen 600 MG Tab PO SCH ×2 (08:13→17:31)
[2017-12-22] MEDS: Fludrocortisone 0.1 MG Tab PO SCH ×2 (08:13→19:22)
[2017-12-22] MEDS: CEPHALEXIN 500 MG PO SCH ×2 (08:13→17:31)
[2017-12-22] MEDS: Furosemide 20 MG Tab PO SCH (08:13)
[2017-12-22] MEDS: Niacin 500 MG Tab PO SCH ×2 (08:15→17:32)
[2017-12-22] MEDS: Omeprazole 20 MG Cap.CR PO SCH (08:16)
[2017-12-22] MEDS: Cholecalciferol (Vitamin D3) 25 MCG Tab PO SCH (08:17)
[2017-12-22] MEDS: Cyanocobalamin (Vitamin B12) 1,000 MCG Tab PO SCH (08:17)
[2017-12-22] MEDS: Chlorhexidine Gluconate 0.12% Oral Rinse 15 ML Cup MUCMEM SCH ×2 (08:18→19:22)
[2017-12-22] MEDS: Potassium Chloride 10% 20 MEQ/15 ML Soln 15 ML UD Cup PO SCH ×3 (08:19→19:22)
[2017-12-22] MEDS: LEVOTHYROXINE SODIUM 137 MCG PO SCH (19:22)
[2017-12-22] MEDS: Simvastatin 10 MG Tab PO SCH (19:23)
[2017-12-22] MEDS: buPROPion 100 MG Tab PO SCH (19:23)
[2017-12-22] MEDS: Acetaminophen 325 MG Tab PO PRN (19:27)
[2017-12-22] MEDS: traMADol 50 MG Tab PO PRN (19:29)
--- NOTE | 2017-12-22 20:18 | PCM.SN ---
- Free Text/Narrative Note: The patient did see the dentist today. On the way back to the [facility] the patient did have a minor fall slipping on the ice with a mild right ankle sprain with no history of head injury, neck pain, back pain, neurological deficits, or other complaints or injuries. X-rays of the right ankle, complete, shows status post distal fibular ORIF with only minimal calcification of the fracture fragments. Mild soft tissue swelling noted. No evidence of acute fracture, dislocation, etc.. Symptomatic relief, including Xavier wrap, ice packs, and weight bearing as tolerated. Note Swing Bed rounds next week. Repeat x-rays at that time depending on her clinical course
[2017-12-23] MEDS: traMADol 50 MG Tab PO PRN ×2 (07:33→17:32)
[2017-12-23] MEDS: Acetaminophen 325 MG Tab PO PRN ×2 (07:34→17:32)
[2017-12-23] MEDS: Fludrocortisone 0.1 MG Tab PO SCH ×2 (07:35→19:11)
[2017-12-23] MEDS: Ibuprofen 600 MG Tab PO SCH ×2 (07:35→17:28)
[2017-12-23] MEDS: Furosemide 20 MG Tab PO SCH (07:35)
[2017-12-23] MEDS: Metoclopramide 10 MG Tab PO SCH ×2 (07:35→17:28)
[2017-12-23] MEDS: Citalopram 20 MG Tab PO SCH (07:35)
[2017-12-23] MEDS: Albuterol/Ipratropium 3.0-0.5 MG/3 ML Neb Soln NEB SCH ×2 (07:35→19:11)
[2017-12-23] MEDS: CEPHALEXIN 500 MG PO SCH ×2 (07:35→17:28)
[2017-12-23] MEDS: Potassium Chloride 10% 20 MEQ/15 ML Soln 15 ML UD Cup PO SCH ×3 (07:36→19:12)
[2017-12-23] MEDS: Niacin 500 MG Tab PO SCH ×2 (07:36→17:32)
[2017-12-23] MEDS: Omeprazole 20 MG Cap.CR PO SCH (07:36)
[2017-12-23] MEDS: Cyanocobalamin (Vitamin B12) 1,000 MCG Tab PO SCH (07:37)
[2017-12-23] MEDS: Cholecalciferol (Vitamin D3) 25 MCG Tab PO SCH (07:37)
[2017-12-23] MEDS: Chlorhexidine Gluconate 0.12% Oral Rinse 15 ML Cup MUCMEM SCH ×2 (08:24→19:11)
[2017-12-23] MEDS: LEVOTHYROXINE SODIUM 137 MCG PO SCH (19:11)
[2017-12-23] MEDS: buPROPion 100 MG Tab PO SCH (19:13)
[2017-12-23] MEDS: Simvastatin 10 MG Tab PO SCH (19:13)
[2017-12-24] MEDS: Acetaminophen 325 MG Tab PO PRN ×2 (03:57→10:56)
[2017-12-24] MEDS: traMADol 50 MG Tab PO PRN ×2 (03:58→10:55)
[2017-12-24] MEDS: Furosemide 20 MG Tab PO SCH (08:16)
[2017-12-24] MEDS: Fludrocortisone 0.1 MG Tab PO SCH ×2 (08:16→19:36)
[2017-12-24] MEDS: CEPHALEXIN 500 MG PO SCH ×2 (08:16→18:03)
[2017-12-24] MEDS: Metoclopramide 10 MG Tab PO SCH ×2 (08:16→18:03)
[2017-12-24] MEDS: Ibuprofen 600 MG Tab PO SCH ×2 (08:16→18:04)
[2017-12-24] MEDS: Citalopram 20 MG Tab PO SCH (08:16)
[2017-12-24] MEDS: Potassium Chloride 10% 20 MEQ/15 ML Soln 15 ML UD Cup PO SCH ×3 (08:17→19:38)
[2017-12-24] MEDS: Niacin 500 MG Tab PO SCH ×2 (08:17→18:06)
[2017-12-24] MEDS: Omeprazole 20 MG Cap.CR PO SCH (08:17)
[2017-12-24] MEDS: Cholecalciferol (Vitamin D3) 25 MCG Tab PO SCH (08:18)
[2017-12-24] MEDS: Cyanocobalamin (Vitamin B12) 1,000 MCG Tab PO SCH (08:18)
[2017-12-24] MEDS: Chlorhexidine Gluconate 0.12% Oral Rinse 15 ML Cup MUCMEM SCH ×2 (08:19→19:36)
[2017-12-24] MEDS: Albuterol/Ipratropium 3.0-0.5 MG/3 ML Neb Soln NEB SCH ×2 (08:20→19:36)
[2017-12-24] MEDS: buPROPion 100 MG Tab PO SCH (19:36)
[2017-12-24] MEDS: LEVOTHYROXINE SODIUM 137 MCG PO SCH (19:36)
[2017-12-24] MEDS: Simvastatin 10 MG Tab PO SCH (19:37)
[2017-12-25] MEDS: Acetaminophen 325 MG Tab PO PRN ×3 (04:36→19:52)
[2017-12-25] MEDS: Metoclopramide 10 MG Tab PO SCH ×2 (08:04→18:01)
[2017-12-25] MEDS: CEPHALEXIN 500 MG PO SCH ×2 (08:04→18:02)
[2017-12-25] MEDS: Citalopram 20 MG Tab PO SCH (08:04)
[2017-12-25] MEDS: Fludrocortisone 0.1 MG Tab PO SCH ×2 (08:05→19:49)
[2017-12-25] MEDS: Ibuprofen 600 MG Tab PO SCH ×2 (08:05→18:02)
[2017-12-25] MEDS: Furosemide 20 MG Tab PO SCH (08:05)
[2017-12-25] MEDS: Albuterol/Ipratropium 3.0-0.5 MG/3 ML Neb Soln NEB SCH ×2 (08:05→19:48)
[2017-12-25] MEDS: Omeprazole 20 MG Cap.CR PO SCH (08:07)
[2017-12-25] MEDS: Cholecalciferol (Vitamin D3) 25 MCG Tab PO SCH (08:07)
[2017-12-25] MEDS: Cyanocobalamin (Vitamin B12) 1,000 MCG Tab PO SCH (08:07)
[2017-12-25] MEDS: Niacin 500 MG Tab PO SCH ×2 (08:07→18:02)
[2017-12-25] MEDS: Potassium Chloride 10% 20 MEQ/15 ML Soln 15 ML UD Cup PO SCH ×3 (08:08→19:48)
[2017-12-25] MEDS: Chlorhexidine Gluconate 0.12% Oral Rinse 15 ML Cup MUCMEM SCH ×2 (08:08→19:48)
[2017-12-25] MEDS: traMADol 50 MG Tab PO PRN ×2 (11:42→19:52)
[2017-12-25] MEDS: LEVOTHYROXINE SODIUM 137 MCG PO SCH (19:49)
[2017-12-25] MEDS: buPROPion 100 MG Tab PO SCH (19:49)
[2017-12-25] MEDS: Simvastatin 10 MG Tab PO SCH (19:49)
[2017-12-26] MEDS: Acetaminophen 325 MG Tab PO PRN (07:35)
[2017-12-26] MEDS: traMADol 50 MG Tab PO PRN (07:36)
[2017-12-26] MEDS: Citalopram 20 MG Tab PO SCH (07:37)
[2017-12-26] MEDS: Fludrocortisone 0.1 MG Tab PO SCH ×2 (07:37→19:21)
[2017-12-26] MEDS: Albuterol/Ipratropium 3.0-0.5 MG/3 ML Neb Soln NEB SCH ×2 (07:37→19:22)
[2017-12-26] MEDS: Furosemide 20 MG Tab PO SCH (07:37)
[2017-12-26] MEDS: CEPHALEXIN 500 MG PO SCH ×2 (07:37→17:12)
[2017-12-26] MEDS: Metoclopramide 10 MG Tab PO SCH ×2 (07:37→17:12)
[2017-12-26] MEDS: Niacin 500 MG Tab PO SCH ×2 (07:38→17:13)
[2017-12-26] MEDS: Omeprazole 20 MG Cap.CR PO SCH (07:38)
[2017-12-26] MEDS: Ibuprofen 600 MG Tab PO SCH ×2 (07:38→17:12)
[2017-12-26] MEDS: Potassium Chloride 10% 20 MEQ/15 ML Soln 15 ML UD Cup PO SCH ×3 (07:39→19:21)
[2017-12-26] MEDS: Cyanocobalamin (Vitamin B12) 1,000 MCG Tab PO SCH (07:39)
[2017-12-26] MEDS: Cholecalciferol (Vitamin D3) 25 MCG Tab PO SCH (07:40)
[2017-12-26] MEDS: Chlorhexidine Gluconate 0.12% Oral Rinse 15 ML Cup MUCMEM SCH ×2 (08:10→19:22)
[2017-12-26] MEDS: buPROPion 100 MG Tab PO SCH (19:21)
[2017-12-26] MEDS: Simvastatin 10 MG Tab PO SCH (19:21)
[2017-12-26] MEDS: LEVOTHYROXINE SODIUM 137 MCG PO SCH (19:21)
[2017-12-27] MEDS: Ibuprofen 600 MG Tab PO SCH ×2 (07:10→17:16)
[2017-12-27] MEDS: Fludrocortisone 0.1 MG Tab PO SCH ×2 (07:10→19:24)
[2017-12-27] MEDS: CEPHALEXIN 500 MG PO SCH ×2 (07:10→17:16)
[2017-12-27] MEDS: Metoclopramide 10 MG Tab PO SCH ×2 (07:10→17:16)
[2017-12-27] MEDS: Furosemide 20 MG Tab PO SCH (07:10)
[2017-12-27] MEDS: Albuterol/Ipratropium 3.0-0.5 MG/3 ML Neb Soln NEB SCH ×2 (07:10→19:25)
[2017-12-27] MEDS: Citalopram 20 MG Tab PO SCH (07:10)
[2017-12-27] MEDS: Niacin 500 MG Tab PO SCH ×2 (07:11→17:17)
[2017-12-27] MEDS: Omeprazole 20 MG Cap.CR PO SCH (07:11)
[2017-12-27] MEDS: Cyanocobalamin (Vitamin B12) 1,000 MCG Tab PO SCH (07:12)
[2017-12-27] MEDS: Cholecalciferol (Vitamin D3) 25 MCG Tab PO SCH (07:12)
[2017-12-27] MEDS: Potassium Chloride 10% 20 MEQ/15 ML Soln 15 ML UD Cup PO SCH ×3 (07:12→19:24)
[2017-12-27] MEDS: Acetaminophen 325 MG Tab PO PRN (07:13)
[2017-12-27] MEDS: traMADol 50 MG Tab PO PRN (07:14)
[2017-12-27] MEDS: Chlorhexidine Gluconate 0.12% Oral Rinse 15 ML Cup MUCMEM SCH ×2 (08:10→19:25)
[2017-12-27] MEDS: Simvastatin 10 MG Tab PO SCH (19:24)
[2017-12-27] MEDS: LEVOTHYROXINE SODIUM 137 MCG PO SCH (19:24)
[2017-12-27] MEDS: buPROPion 100 MG Tab PO SCH (19:24)
[2017-12-28] MEDS: traMADol 50 MG Tab PO PRN (07:24)
[2017-12-28] MEDS: Acetaminophen 325 MG Tab PO PRN (07:24)
[2017-12-28] MEDS: Citalopram 20 MG Tab PO SCH (07:25)
[2017-12-28] MEDS: Metoclopramide 10 MG Tab PO SCH ×2 (07:25→17:36)
[2017-12-28] MEDS: Albuterol/Ipratropium 3.0-0.5 MG/3 ML Neb Soln NEB SCH ×2 (07:25→19:07)
[2017-12-28] MEDS: Ibuprofen 600 MG Tab PO SCH ×2 (07:25→17:36)
[2017-12-28] MEDS: Fludrocortisone 0.1 MG Tab PO SCH ×2 (07:25→19:07)
[2017-12-28] MEDS: Furosemide 20 MG Tab PO SCH (07:25)
[2017-12-28] MEDS: CEPHALEXIN 500 MG PO SCH ×2 (07:25→17:36)
[2017-12-28] MEDS: Niacin 500 MG Tab PO SCH ×2 (07:26→17:37)
[2017-12-28] MEDS: Omeprazole 20 MG Cap.CR PO SCH (07:26)
[2017-12-28] MEDS: Potassium Chloride 10% 20 MEQ/15 ML Soln 15 ML UD Cup PO SCH ×3 (07:26→19:07)
[2017-12-28] MEDS: Cholecalciferol (Vitamin D3) 25 MCG Tab PO SCH (07:27)
[2017-12-28] MEDS: Cyanocobalamin (Vitamin B12) 1,000 MCG Tab PO SCH (07:27)
[2017-12-28] MEDS: Chlorhexidine Gluconate 0.12% Oral Rinse 15 ML Cup MUCMEM SCH ×2 (08:26→19:07)
[2017-12-28] MEDS: buPROPion 100 MG Tab PO SCH (19:07)
[2017-12-28] MEDS: Simvastatin 10 MG Tab PO SCH (19:07)
[2017-12-28] MEDS: LEVOTHYROXINE SODIUM 137 MCG PO SCH (19:07)
[2017-12-29] MEDS: Albuterol/Ipratropium 3.0-0.5 MG/3 ML Neb Soln NEB SCH ×2 (08:11→19:36)
[2017-12-29] MEDS: Furosemide 20 MG Tab PO SCH (08:11)
[2017-12-29] MEDS: Fludrocortisone 0.1 MG Tab PO SCH ×2 (08:11→19:37)
[2017-12-29] MEDS: CEPHALEXIN 500 MG PO SCH ×2 (08:11→17:34)
[2017-12-29] MEDS: Metoclopramide 10 MG Tab PO SCH ×2 (08:11→17:34)
[2017-12-29] MEDS: Citalopram 20 MG Tab PO SCH (08:11)
[2017-12-29] MEDS: Omeprazole 20 MG Cap.CR PO SCH (08:12)
[2017-12-29] MEDS: Niacin 500 MG Tab PO SCH ×2 (08:12→17:35)
[2017-12-29] MEDS: Ibuprofen 600 MG Tab PO SCH ×2 (08:12→17:35)
[2017-12-29] MEDS: Cholecalciferol (Vitamin D3) 25 MCG Tab PO SCH (08:13)
[2017-12-29] MEDS: Cyanocobalamin (Vitamin B12) 1,000 MCG Tab PO SCH (08:13)
[2017-12-29] MEDS: Chlorhexidine Gluconate 0.12% Oral Rinse 15 ML Cup MUCMEM SCH ×2 (08:14→19:40)
[2017-12-29] MEDS: Potassium Chloride 10% 20 MEQ/15 ML Soln 15 ML UD Cup PO SCH ×3 (08:14→19:38)
[2017-12-29] MEDS: Acetaminophen 325 MG Tab PO PRN ×2 (09:33→17:36)
[2017-12-29] MEDS: traMADol 50 MG Tab PO PRN (09:34)
[2017-12-29] MEDS: buPROPion 100 MG Tab PO SCH (19:37)
[2017-12-29] MEDS: Simvastatin 10 MG Tab PO SCH (19:37)
[2017-12-29] MEDS: LEVOTHYROXINE SODIUM 137 MCG PO SCH (19:37)
[2017-12-30] MEDS: Ibuprofen 600 MG Tab PO SCH ×2 (08:25→17:58)
[2017-12-30] MEDS: Omeprazole 20 MG Cap.CR PO SCH (08:25)
[2017-12-30] MEDS: Furosemide 20 MG Tab PO SCH (08:25)
[2017-12-30] MEDS: Albuterol/Ipratropium 3.0-0.5 MG/3 ML Neb Soln NEB SCH ×2 (08:25→19:38)
[2017-12-30] MEDS: Metoclopramide 10 MG Tab PO SCH ×2 (08:26→17:57)
[2017-12-30] MEDS: Citalopram 20 MG Tab PO SCH (08:26)
[2017-12-30] MEDS: Chlorhexidine Gluconate 0.12% Oral Rinse 15 ML Cup MUCMEM SCH ×2 (08:26→19:39)
[2017-12-30] MEDS: Fludrocortisone 0.1 MG Tab PO SCH ×2 (08:26→19:39)
[2017-12-30] MEDS: Cholecalciferol (Vitamin D3) 25 MCG Tab PO SCH (08:26)
[2017-12-30] MEDS: CEPHALEXIN 500 MG PO SCH ×2 (08:26→17:58)
[2017-12-30] MEDS: Niacin 500 MG Tab PO SCH ×2 (08:26→17:59)
[2017-12-30] MEDS: Potassium Chloride 10% 20 MEQ/15 ML Soln 15 ML UD Cup PO SCH ×3 (08:27→19:39)
[2017-12-30] MEDS: Cyanocobalamin (Vitamin B12) 1,000 MCG Tab PO SCH (08:27)
--- NOTE | 2017-12-30 08:50 | PCM.PN ---
- General Info Date of Service: 12/30/17 Admission Dx/Problem (Free Text): 1. Myotonic dystrophy 2. CHF 3. COPD 4. Recurrent UTIs Subjective Update: Patient has had a recent history of mild increased dependent edema As per Simple Provider Note on 12/10/17 with additional history of a minor fall, including right ankle sprain on 12/22/17, which was also documented by a Simple Provider Note.The patient denies any chest pain/pressure, heart flutter, dizziness, orthostasis, orthopnea, diaphoresis, paresthesias, recent decreased exercise tolerance, or any other anginal-type symptoms. No recent history of abdominal pain, heartburn, nausea, diarrhea, melena, gross hematochezia, or any food intolerance, including fatty foods, etc.. The patient also denies any recent fever, cough, wheezing, dyspnea, etc.. She is able to walk on her right ankle with minimal difficulties with no ankle brace required at this time and no history of additional fall. Functional Status: Reports: Pain Controlled, Tolerating Diet, Ambulating, Urinating, Incentive Spirometry. Denies: New Symptoms Pain Score: 1 (Right ankle, although patient not able to completely rate her pain) - Review of Systems General: Reports: Weakness (Stable generalized), Fatigue (Stable generalized). Denies: Fever, Malaise, Chills, Night Sweats, Appetite (Good) HEENT: Reports: Other (Dentition in poor repairstable). Denies: Ear Pain, Eye Pain, Headaches, Post Nasal Drip, Sinus Congestion, Sore Throat, Rhinitis, Visual Changes Pulmonary: Reports: No Symptoms. Denies: Shortness of Breath, Pleuritic Chest Pain, Cough, Sputum, Wheezing Cardiovascular: Reports: Edema (Stable dependent improved from 12/10). Denies: Chest Pain, Palpitations, Dyspnea on Exertion, Orthopnea, PND, Lightheadedness Gastrointestinal: Reports: No Symptoms. Denies: Abdominal Pain, Constipation, Decreased Appetite, Diarrhea, Difficulty Swallowing, Flatus, Hematochezia, Melena, Nausea, Vomiting Genitourinary: Reports: No Symptoms. Denies: Dysuria, Frequency, Urgency, Hematuria, Retention, Flank Pain Musculoskeletal: Reports: Joint Pain (Improved right ankle pain as above). Denies: Neck Pain, Shoulder Pain, Arm Pain, Back Pain, Leg Pain, Joint Swelling Skin: Reports: No Symptoms. Denies: Diaphoresis, Bruising Neurological: Reports: Weakness (Stable generalized). Denies: Confusion, Dizziness, Headache, Numbness, Paresthesia, Seizure, Syncope, Tingling, Difficulty Walking, Gait Disturbance Psychiatric: Reports: No Symptoms. Denies: Confusion, Depression, Anxiety, Agitation, Cravings, Hallucinations - Patient Data Vitals - Most Recent: Last Vital Signs Temp 36.1 C 12/23/17 08:00 Pulse 65 12/23/17 08:00 Resp 15 12/23/17 08:00 BP 111/55 L 12/23/17 08:00 Pulse Ox 96 12/24/17 23:00 Weight - Most Recent: 112.037 kg (Note additional 2 kg weight gain since 10/28/17 ) I&O - Last 24 Hours: Intake & Output 12/29/17 12/30/17 12/30/17 22:59 06:59 14:59 Intake Total 50 Balance 50 Imaging Impressions - Last 24 Hours: None, although note normal right ankle x-rays on 12/22/17 after minor fall as above Sandor Results Last 24 Hours: None Med Orders - Current: Current Medications Acetaminophen (Tylenol) 650 mg PO Q4H PRN PRN Reason: Pain Last Admin: 12/29/17 17:36 Dose: 650 mg Albuterol/Ipratropium (Duoneb 3.0-0.5 Mg/3 Ml) 3 ml NEB BIDRT [facility] Last Admin: 12/30/17 08:25 Dose: 3 ml Albuterol/Ipratropium (Duoneb 3.0-0.5 Mg/3 Ml) 3 ml NEB Q4HRRT PRN PRN Reason: Dyspnea Last Admin: 11/30/17 19:29 Dose: 3 ml Bupropion HCl (Wellbutrin) 150 mg PO BEDTIME [facility] Last Admin: 12/29/17 19:37 Dose: 150 mg Chlorhexidine Gluconate (Peridex 0.12% Rinse) 15 ml MUCMEM BID@09,20 [facility] Last Admin: 12/30/17 08:26 Dose: 15 ml Cholecalciferol (Vitamin D3) 1,000 units PO QAM [facility] Last Admin: 12/30/17 08:26 Dose: 1,000 units Citalopram Hydrobromide (Celexa) 20 mg PO QAM [facility] Last Admin: 12/30/17 08:26 Dose: 20 mg Clotrimazole (Lotrimin Af 1% Crm) 1 gm TOP BID PRN PRN Reason: Rash Last Admin: 12/09/17 19:18 Dose: 1 applic Cyanocobalamin (Vitamin B12) 1,000 mcg PO QAM [facility] Last Admin: 12/30/17 08:27 Dose: 1,000 mcg Diphenhydramine HCl (Benadryl) 25 mg PO Q4H PRN PRN Reason: Itching Fludrocortisone Acetate (Florinef) 0.1 mg PO BEDTIME [facility] Last Admin: 12/29/17 19:37 Dose: 0.1 mg Fludrocortisone Acetate (Florinef) 0.2 mg PO QAM [facility] Last Admin: 12/30/17 08:26 Dose: 0.2 mg Furosemide (Lasix) 20 mg PO DAILY [facility] Last Admin: 12/30/17 08:25 Dose: 20 mg Ibuprofen (Motrin) 600 mg PO BID [facility] Last Admin: 12/30/17 08:25 Dose: 600 mg Ibuprofen (Motrin) 600 mg PO Q6H PRN PRN Reason: Breakthrough Pain Metoclopramide HCl (Reglan) 10 mg PO BIDAC [facility] Last Admin: 12/30/17 08:26 Dose: 10 mg Niacin (Niacin) 500 mg PO BID [facility] Last Admin: 12/30/17 08:26 Dose: 500 mg Cephalexin (Keflex) (500 Mg Capsules) 500 mg PO BID [facility] Last Admin: 12/30/17 08:26 Dose: 500 mg Levothyroxine Sodium (137 Mcg Tablets) 137 mcg PO BEDTIME [facility] Last Admin: 12/29/17 19:37 Dose: 137 mcg Omeprazole (Omeprazole) 20 mg PO DAILY [facility] Last Admin: 12/30/17 08:25 Dose: 20 mg Potassium Chloride (Potassium Chloride Solution) 40 meq PO TID@08,14,20 [facility] Last Admin: 12/30/17 08:27 Dose: 40 meq Simvastatin (Zocor) 10 mg PO BEDTIME [facility] Last Admin: 12/29/17 19:37 Dose: 10 mg Tramadol HCl (Ultram) 50 mg PO Q6H PRN PRN Reason: Pain (severe 7-10) Last Admin: 12/29/17 09:34 Dose: 50 mg Discontinued Medications Furosemide (Lasix) 40 mg IM NOW ONE Stop: 12/10/17 11:52 Last Admin: 12/10/17 13:10 Dose: 40 mg Fluconazole 150mg (Tablet) 1 each PO Q3D MIESHA Stop: 12/06/17 20:01 Last Admin: 12/06/17 19:13 Dose: 1 each Potassium Chloride (Klor-Con M20) 20 meq PO ONETIME ONE Stop: 12/10/17 11:53 Last Admin: 12/10/17 13:10 Dose: 20 meq Potassium Chloride (Klor-Con M20) 20 meq PO DAILY MIESHA - Exam Quality Assessment: DVT Prophylaxis. No: Supplemental Oxygen, Central Line/PICC , Urine Catheter, Skin Breakdown, Restraints General: Alert, Oriented, Cooperative, No Acute Distress HEENT: Pupils Equal, Pupils Reactive, EOMI, Mucous Membr. Moist/Coates, Other ( Dentition in extremely poor repair) Neck: Supple, Trachea Midline, No JVD, No Thyromegaly. No: Lymphadenopathy Lungs: Clear to Auscultation, Normal Respiratory Effort. No: Rub GI/Abdominal Exam: Normal Bowel Sounds, Soft, Non-Tender, No Organomegaly, No Distention, No Abnormal Bruit, No Mass, Other (Obese). No: Guarding (Female) Exam: Deferred Back Exam: Normal Inspection, Full Range of Motion. No: CVA Tenderness (L), CVA Tenderness (R), Muscle Spasm Extremities: Normal Range of Motion, Non-Tender, Normal Capillary Refill, Pedal Edema (Stable bilateral lymphedema of the lower extremities). No: Joint Swelling (Including right ankle), Lurdes's Sign Peripheral Pulses: 2+: Radial (L), Radial (R) Skin: Warm, Dry, Intact Neurological: No New Focal Deficit, Other (No clinical orthostasis;) Psy/Mental Status: Alert, Normal Affect, Normal Mood. No: Agitated, Hallucinations, Withdrawal Symptoms - Problem List & Annotations (1) Steinert myotonic dystrophy syndrome SNOMED Code(s): 89152409 Code(s): G71.11 - MYOTONIC MUSCULAR DYSTROPHY Status: Chronic Priority: Medium Current Visit: Yes Annotation/Comment:: Stable by history. Continuation of every 4 month CPK, etc. evaluations especially in light of aggressive treatment of her dyslipidemia. (2) CHF, Congestive heart failure SNOMED Code(s): 27639782 Code(s): I50.9 - HEART FAILURE, UNSPECIFIED Status: Chronic Priority: Medium Current Visit: Yes Annotation/Comment:: After recently increased Lasix significant improvement of her previous dependent edema since 12/10/17 as above. Note persistent weight gain likely secondary to dietary noncompliance. Continue to observe closely. No recent anginal complaints or current clinical evidence of CHF. Note previous history of PVCs, complete right bundle branch block, severe dyslipidemia hypokalemia, hypophosphatemia, and hypernatremia. Continue to observe for now with no further change in medical therapy (3) Caries SNOMED Code(s): 29384195 Code(s): K02.9 - DENTAL CARIES, UNSPECIFIED Status: Acute Priority: Medium Current Visit: Yes Annotation/Comment:: After many years the patient has finally agreed to further treatment for her severe poor dentist disease, including multiple caries with no evidence of acute abscesses at this time. Initial evaluation by oral surgeon scheduled for 01/22 with further instructions from that office for likely subsequent pre-operative history and physical, etc. in this facility. Note initial dental evaluation on 12/22/17. (4) COPD (chronic obstructive pulmonary disease) SNOMED Code(s): 75598536 Code(s): J44.9 - CHRONIC OBSTRUCTIVE PULMONARY DISEASE, UNSPECIFIED Status : Chronic Priority: Medium Current Visit: Yes Qualifiers: COPD type: unspecified COPD Qualified Code(s): J44.9 - Chronic obstructive pulmonary disease, unspecified Annotation/Comment:: COPD stable by history with no bronchitic symptoms at this time. Continue current medical therapy. Patient is now oxygen dependent with previous history of recent postoperative respiratory distress (5) Hyperglycemia SNOMED Code(s): 39019727 Code(s): R73.9 - HYPERGLYCEMIA, UNSPECIFIED Status: Chronic Priority: Medium Current Visit: Yes Onset Date: 06/29/15 Annotation/Comment:: Note persistent dietary noncompliance with an additional 2 kg weight gain since last evaluation on 10/28/17. Dietary consultation is in effect. Glycosylated hemoglobin normal on 10/28/17 with repeat study at time of preoperative history and physical (6) Hyperlipidemia SNOMED Code(s): 94792407 Code(s): E78.5 - HYPERLIPIDEMIA, UNSPECIFIED Status: Chronic Priority: Medium Current Visit: Yes Annotation/Comment:: Previous history of severe dyslipidemia with aggressive medical therapy at this time. Dietary compliance once again strongly encouraged. Repeat lipid panel at time of preoperative history and physical. (7) Hypothyroidism SNOMED Code(s): 97431481 Code(s): E03.9 - HYPOTHYROIDISM, UNSPECIFIED Status: Chronic Priority: Medium Current Visit: Yes Annotation/Comment:: TSH was normal 6 months ago with repeat yearly labs at time of preoperative history and physical as above (8) Mixed anxiety and depressive disorder SNOMED Code(s): 892769769 Code(s): F41.8 - OTHER SPECIFIED ANXIETY DISORDERS Status: Chronic Priority: Medium Current Visit: Yes Annotation/Comment:: Patient is still relatively active with physical therapy, social activities, etc.. Continue to observe closely by nursing staff with no significant depression at this time with patient often alone in her room. (9) Osteoarthritis SNOMED Code(s): 660926155 Code(s): M19.90 - UNSPECIFIED OSTEOARTHRITIS, UNSPECIFIED SITE Status: Chronic Priority: Medium Current Visit: Yes Annotation/Comment:: Stable by history as above, including right ankle pain after minor ankle sprain as above. Note status post bilateral ankle ORIF secondary to fractures (10) UTI (urinary tract infection) SNOMED Code(s): 35705554 Code(s): N39.0 - URINARY TRACT INFECTION, SITE NOT SPECIFIED Status: Chronic Priority: Medium Current Visit: Yes Qualifiers: Hematuria presence: without hematuria Annotation/Comment:: No current UTI symptoms. History of recurrent UTIs with continuation of Keflex therapy as uroprophylaxis. - Problem List Review Problem List Initiated/Reviewed/Updated: Yes - Assessment Assessment:: As above - Plan Plan:: As above. Extensive precautions were given to the patient, who is in agreement with the treatment plan. Probable preoperative history and physical for her complete dental extraction in the near future as above. Otherwise recertification in 2 months. Patient is recertified for further Swing Bed care on a long-term basis secondary to her multiple health problems as above
[2017-12-30] MEDS: LEVOTHYROXINE SODIUM 137 MCG PO SCH (19:39)
[2017-12-30] MEDS: buPROPion 100 MG Tab PO SCH (19:40)
[2017-12-30] MEDS: Simvastatin 10 MG Tab PO SCH (19:41)
[2017-12-31] MEDS: Metoclopramide 10 MG Tab PO SCH ×2 (07:19→17:31)
[2017-12-31] MEDS: Furosemide 20 MG Tab PO SCH (07:20)
[2017-12-31] MEDS: CEPHALEXIN 500 MG PO SCH ×2 (07:20→17:32)
[2017-12-31] MEDS: Citalopram 20 MG Tab PO SCH (07:20)
[2017-12-31] MEDS: Ibuprofen 600 MG Tab PO SCH ×2 (07:20→17:32)
[2017-12-31] MEDS: Fludrocortisone 0.1 MG Tab PO SCH ×2 (07:20→19:29)
[2017-12-31] MEDS: Albuterol/Ipratropium 3.0-0.5 MG/3 ML Neb Soln NEB SCH ×2 (07:20→19:28)
[2017-12-31] MEDS: Omeprazole 20 MG Cap.CR PO SCH (07:22)
[2017-12-31] MEDS: Niacin 500 MG Tab PO SCH ×2 (07:22→17:32)
[2017-12-31] MEDS: Potassium Chloride 10% 20 MEQ/15 ML Soln 15 ML UD Cup PO SCH ×3 (07:22→19:29)
[2017-12-31] MEDS: Cyanocobalamin (Vitamin B12) 1,000 MCG Tab PO SCH (07:23)
[2017-12-31] MEDS: Cholecalciferol (Vitamin D3) 25 MCG Tab PO SCH (07:23)
[2017-12-31] MEDS: Chlorhexidine Gluconate 0.12% Oral Rinse 15 ML Cup MUCMEM SCH ×2 (08:18→19:29)
[2017-12-31] MEDS: Clotrimazole 1% Crm 30 GM Tube TOP PRN ×2 (08:18→19:31)
[2017-12-31] MEDS: traMADol 50 MG Tab PO PRN (11:29)
[2017-12-31] MEDS: Acetaminophen 325 MG Tab PO PRN (11:29)
[2017-12-31] MEDS: buPROPion 100 MG Tab PO SCH (19:28)
[2017-12-31] MEDS: Simvastatin 10 MG Tab PO SCH (19:28)
[2017-12-31] MEDS: LEVOTHYROXINE SODIUM 137 MCG PO SCH (19:28)
[2018-01-01] MEDS: Albuterol/Ipratropium 3.0-0.5 MG/3 ML Neb Soln NEB SCH ×2 (07:26→19:06)
[2018-01-01] MEDS: Metoclopramide 10 MG Tab PO SCH ×2 (07:26→17:17)
[2018-01-01] MEDS: Citalopram 20 MG Tab PO SCH (07:26)
[2018-01-01] MEDS: CEPHALEXIN 500 MG PO SCH ×2 (07:26→17:17)
[2018-01-01] MEDS: Furosemide 20 MG Tab PO SCH (07:27)
[2018-01-01] MEDS: Fludrocortisone 0.1 MG Tab PO SCH ×2 (07:27→19:05)
[2018-01-01] MEDS: Ibuprofen 600 MG Tab PO SCH ×2 (07:27→17:17)
[2018-01-01] MEDS: Niacin 500 MG Tab PO SCH ×2 (07:28→17:18)
[2018-01-01] MEDS: Omeprazole 20 MG Cap.CR PO SCH (07:28)
[2018-01-01] MEDS: Cyanocobalamin (Vitamin B12) 1,000 MCG Tab PO SCH (07:28)
[2018-01-01] MEDS: Potassium Chloride 10% 20 MEQ/15 ML Soln 15 ML UD Cup PO SCH ×3 (07:28→19:05)
[2018-01-01] MEDS: Cholecalciferol (Vitamin D3) 25 MCG Tab PO SCH (07:29)
[2018-01-01] MEDS: Acetaminophen 325 MG Tab PO PRN (07:29)
[2018-01-01] MEDS: traMADol 50 MG Tab PO PRN (07:30)
[2018-01-01] MEDS: Chlorhexidine Gluconate 0.12% Oral Rinse 15 ML Cup MUCMEM SCH ×2 (10:14→19:05)
[2018-01-01] MEDS: LEVOTHYROXINE SODIUM 137 MCG PO SCH (19:05)
[2018-01-01] MEDS: buPROPion 100 MG Tab PO SCH (19:05)
[2018-01-01] MEDS: Simvastatin 10 MG Tab PO SCH (19:06)
[2018-01-01] MEDS: Clotrimazole 1% Crm 30 GM Tube TOP PRN (20:05)
[2018-01-02] MEDS: Citalopram 20 MG Tab PO SCH (08:04)
[2018-01-02] MEDS: Metoclopramide 10 MG Tab PO SCH ×2 (08:04→17:50)
[2018-01-02] MEDS: Fludrocortisone 0.1 MG Tab PO SCH ×2 (08:04→19:23)
[2018-01-02] MEDS: Albuterol/Ipratropium 3.0-0.5 MG/3 ML Neb Soln NEB SCH ×2 (08:04→19:23)
[2018-01-02] MEDS: CEPHALEXIN 500 MG PO SCH ×2 (08:04→17:51)
[2018-01-02] MEDS: Furosemide 20 MG Tab PO SCH (08:05)
[2018-01-02] MEDS: Ibuprofen 600 MG Tab PO SCH ×2 (08:05→17:51)
[2018-01-02] MEDS: Niacin 500 MG Tab PO SCH ×2 (08:06→17:52)
[2018-01-02] MEDS: Omeprazole 20 MG Cap.CR PO SCH (08:06)
[2018-01-02] MEDS: Potassium Chloride 10% 20 MEQ/15 ML Soln 15 ML UD Cup PO SCH ×3 (08:07→19:24)
[2018-01-02] MEDS: Cyanocobalamin (Vitamin B12) 1,000 MCG Tab PO SCH (08:07)
[2018-01-02] MEDS: Chlorhexidine Gluconate 0.12% Oral Rinse 15 ML Cup MUCMEM SCH ×2 (08:08→19:24)
[2018-01-02] MEDS: Cholecalciferol (Vitamin D3) 25 MCG Tab PO SCH (08:08)
[2018-01-02] MEDS: traMADol 50 MG Tab PO PRN (10:01)
[2018-01-02] MEDS: Acetaminophen 325 MG Tab PO PRN (10:03)
[2018-01-02] MEDS: LEVOTHYROXINE SODIUM 137 MCG PO SCH (19:23)
[2018-01-02] MEDS: Simvastatin 10 MG Tab PO SCH (19:25)
[2018-01-02] MEDS: buPROPion 100 MG Tab PO SCH (19:25)
[2018-01-03] MEDS: Clotrimazole 1% Crm 30 GM Tube TOP PRN ×2 (01:00→19:27)
[2018-01-03] MEDS: CEPHALEXIN 500 MG PO SCH ×2 (08:09→17:59)
[2018-01-03] MEDS: Citalopram 20 MG Tab PO SCH (08:09)
[2018-01-03] MEDS: Metoclopramide 10 MG Tab PO SCH ×2 (08:09→17:59)
[2018-01-03] MEDS: Furosemide 20 MG Tab PO SCH (08:10)
[2018-01-03] MEDS: Ibuprofen 600 MG Tab PO SCH ×2 (08:10→18:00)
[2018-01-03] MEDS: Fludrocortisone 0.1 MG Tab PO SCH ×2 (08:10→19:25)
[2018-01-03] MEDS: Omeprazole 20 MG Cap.CR PO SCH (08:11)
[2018-01-03] MEDS: Albuterol/Ipratropium 3.0-0.5 MG/3 ML Neb Soln NEB SCH ×2 (08:14→19:25)
[2018-01-03] MEDS: Niacin 500 MG Tab PO SCH ×2 (08:14→18:01)
[2018-01-03] MEDS: Potassium Chloride 10% 20 MEQ/15 ML Soln 15 ML UD Cup PO SCH ×3 (08:15→19:26)
[2018-01-03] MEDS: Cyanocobalamin (Vitamin B12) 1,000 MCG Tab PO SCH (08:15)
[2018-01-03] MEDS: Chlorhexidine Gluconate 0.12% Oral Rinse 15 ML Cup MUCMEM SCH ×2 (08:16→19:26)
[2018-01-03] MEDS: Cholecalciferol (Vitamin D3) 25 MCG Tab PO SCH (08:16)
[2018-01-03] MEDS: traMADol 50 MG Tab PO PRN (17:58)
[2018-01-03] MEDS: buPROPion 100 MG Tab PO SCH (19:26)
[2018-01-03] MEDS: LEVOTHYROXINE SODIUM 137 MCG PO SCH (19:26)
[2018-01-03] MEDS: Simvastatin 10 MG Tab PO SCH (19:27)
[2018-01-04] MEDS: Fludrocortisone 0.1 MG Tab PO SCH ×2 (08:16→19:30)
[2018-01-04] MEDS: CEPHALEXIN 500 MG PO SCH ×2 (08:16→18:03)
[2018-01-04] MEDS: Furosemide 20 MG Tab PO SCH (08:16)
[2018-01-04] MEDS: Metoclopramide 10 MG Tab PO SCH ×2 (08:16→18:03)
[2018-01-04] MEDS: Albuterol/Ipratropium 3.0-0.5 MG/3 ML Neb Soln NEB SCH ×2 (08:16→19:30)
[2018-01-04] MEDS: Citalopram 20 MG Tab PO SCH (08:16)
[2018-01-04] MEDS: Omeprazole 20 MG Cap.CR PO SCH (08:17)
[2018-01-04] MEDS: Ibuprofen 600 MG Tab PO SCH ×2 (08:17→18:03)
[2018-01-04] MEDS: Niacin 500 MG Tab PO SCH ×2 (08:17→18:10)
[2018-01-04] MEDS: Cyanocobalamin (Vitamin B12) 1,000 MCG Tab PO SCH (08:18)
[2018-01-04] MEDS: Cholecalciferol (Vitamin D3) 25 MCG Tab PO SCH (08:18)
[2018-01-04] MEDS: Clotrimazole 1% Crm 30 GM Tube TOP PRN (08:19)
[2018-01-04] MEDS: Chlorhexidine Gluconate 0.12% Oral Rinse 15 ML Cup MUCMEM SCH ×2 (08:19→19:31)
[2018-01-04] MEDS: Potassium Chloride 10% 20 MEQ/15 ML Soln 15 ML UD Cup PO SCH ×3 (08:19→19:31)
[2018-01-04] MEDS: traMADol 50 MG Tab PO PRN (18:09)
[2018-01-04] MEDS: LEVOTHYROXINE SODIUM 137 MCG PO SCH (19:30)
[2018-01-04] MEDS: Simvastatin 10 MG Tab PO SCH (19:31)
[2018-01-04] MEDS: buPROPion 100 MG Tab PO SCH (19:31)
[2018-01-05] MEDS: Albuterol/Ipratropium 3.0-0.5 MG/3 ML Neb Soln NEB SCH ×2 (08:10→19:57)
[2018-01-05] MEDS: CEPHALEXIN 500 MG PO SCH ×2 (08:11→18:19)
[2018-01-05] MEDS: Metoclopramide 10 MG Tab PO SCH ×2 (08:11→18:19)
[2018-01-05] MEDS: Citalopram 20 MG Tab PO SCH (08:11)
[2018-01-05] MEDS: Omeprazole 20 MG Cap.CR PO SCH (08:12)
[2018-01-05] MEDS: Fludrocortisone 0.1 MG Tab PO SCH ×2 (08:12→19:58)
[2018-01-05] MEDS: Ibuprofen 600 MG Tab PO SCH ×2 (08:12→18:19)
[2018-01-05] MEDS: Niacin 500 MG Tab PO SCH ×2 (08:12→19:57)
[2018-01-05] MEDS: Furosemide 20 MG Tab PO SCH (08:12)
[2018-01-05] MEDS: Potassium Chloride 10% 20 MEQ/15 ML Soln 15 ML UD Cup PO SCH ×3 (08:13→19:58)
[2018-01-05] MEDS: Cyanocobalamin (Vitamin B12) 1,000 MCG Tab PO SCH (08:13)
[2018-01-05] MEDS: Chlorhexidine Gluconate 0.12% Oral Rinse 15 ML Cup MUCMEM SCH ×2 (08:14→19:58)
[2018-01-05] MEDS: Cholecalciferol (Vitamin D3) 25 MCG Tab PO SCH (08:14)
[2018-01-05] MEDS: LEVOTHYROXINE SODIUM 137 MCG PO SCH (19:58)
[2018-01-05] MEDS: buPROPion 100 MG Tab PO SCH (20:00)
[2018-01-05] MEDS: Simvastatin 10 MG Tab PO SCH (20:00)
[2018-01-06] MEDS: Acetaminophen 325 MG Tab PO PRN (07:29)
[2018-01-06] MEDS: traMADol 50 MG Tab PO PRN (07:30)
[2018-01-06] MEDS: CEPHALEXIN 500 MG PO SCH ×2 (07:31→17:13)
[2018-01-06] MEDS: Ibuprofen 600 MG Tab PO SCH ×2 (07:31→17:14)
[2018-01-06] MEDS: Metoclopramide 10 MG Tab PO SCH ×2 (07:31→17:13)
[2018-01-06] MEDS: Furosemide 20 MG Tab PO SCH (07:31)
[2018-01-06] MEDS: Citalopram 20 MG Tab PO SCH (07:31)
[2018-01-06] MEDS: Fludrocortisone 0.1 MG Tab PO SCH ×2 (07:31→19:16)
[2018-01-06] MEDS: Albuterol/Ipratropium 3.0-0.5 MG/3 ML Neb Soln NEB SCH ×2 (07:31→19:18)
[2018-01-06] MEDS: Niacin 500 MG Tab PO SCH ×2 (07:32→17:14)
[2018-01-06] MEDS: Omeprazole 20 MG Cap.CR PO SCH (07:32)
[2018-01-06] MEDS: Cyanocobalamin (Vitamin B12) 1,000 MCG Tab PO SCH (07:33)
[2018-01-06] MEDS: Cholecalciferol (Vitamin D3) 25 MCG Tab PO SCH (07:33)
[2018-01-06] MEDS: Potassium Chloride 10% 20 MEQ/15 ML Soln 15 ML UD Cup PO SCH ×3 (07:33→19:20)
[2018-01-06] MEDS: Chlorhexidine Gluconate 0.12% Oral Rinse 15 ML Cup MUCMEM SCH ×2 (08:05→19:18)
[2018-01-06] MEDS: Clotrimazole 1% Crm 30 GM Tube TOP PRN (11:16)
[2018-01-06] MEDS: LEVOTHYROXINE SODIUM 137 MCG PO SCH (19:17)
[2018-01-06] MEDS: Simvastatin 10 MG Tab PO SCH (19:17)
[2018-01-06] MEDS: buPROPion 100 MG Tab PO SCH (19:17)
[2018-01-07] MEDS: Metoclopramide 10 MG Tab PO SCH ×2 (07:29→17:10)
[2018-01-07] MEDS: Furosemide 20 MG Tab PO SCH (07:30)
[2018-01-07] MEDS: Ibuprofen 600 MG Tab PO SCH ×2 (07:30→17:10)
[2018-01-07] MEDS: Citalopram 20 MG Tab PO SCH (07:30)
[2018-01-07] MEDS: Fludrocortisone 0.1 MG Tab PO SCH ×2 (07:30→19:27)
[2018-01-07] MEDS: CEPHALEXIN 500 MG PO SCH ×2 (07:30→17:10)
[2018-01-07] MEDS: Albuterol/Ipratropium 3.0-0.5 MG/3 ML Neb Soln NEB SCH ×2 (07:30→19:28)
[2018-01-07] MEDS: Niacin 500 MG Tab PO SCH ×2 (07:31→17:10)
[2018-01-07] MEDS: Acetaminophen 325 MG Tab PO PRN (07:31)
[2018-01-07] MEDS: Omeprazole 20 MG Cap.CR PO SCH (07:31)
[2018-01-07] MEDS: traMADol 50 MG Tab PO PRN (07:32)
[2018-01-07] MEDS: Potassium Chloride 10% 20 MEQ/15 ML Soln 15 ML UD Cup PO SCH ×3 (07:32→19:28)
[2018-01-07] MEDS: Cyanocobalamin (Vitamin B12) 1,000 MCG Tab PO SCH (07:33)
[2018-01-07] MEDS: Cholecalciferol (Vitamin D3) 25 MCG Tab PO SCH (07:33)
[2018-01-07] MEDS: Chlorhexidine Gluconate 0.12% Oral Rinse 15 ML Cup MUCMEM SCH ×2 (08:01→19:28)
[2018-01-07] MEDS: Clotrimazole 1% Crm 30 GM Tube TOP PRN ×2 (08:01→19:29)
[2018-01-07] MEDS: LEVOTHYROXINE SODIUM 137 MCG PO SCH (19:27)
[2018-01-07] MEDS: buPROPion 100 MG Tab PO SCH (19:27)
[2018-01-07] MEDS: Simvastatin 10 MG Tab PO SCH (19:27)
[2018-01-08] MEDS: traMADol 50 MG Tab PO PRN (07:25)
[2018-01-08] MEDS: Metoclopramide 10 MG Tab PO SCH ×2 (07:26→17:04)
[2018-01-08] MEDS: Acetaminophen 325 MG Tab PO PRN (07:26)
[2018-01-08] MEDS: Citalopram 20 MG Tab PO SCH (07:26)
[2018-01-08] MEDS: Albuterol/Ipratropium 3.0-0.5 MG/3 ML Neb Soln NEB SCH ×2 (07:27→19:31)
[2018-01-08] MEDS: Furosemide 20 MG Tab PO SCH (07:27)
[2018-01-08] MEDS: CEPHALEXIN 500 MG PO SCH ×2 (07:27→17:04)
[2018-01-08] MEDS: Ibuprofen 600 MG Tab PO SCH ×2 (07:27→17:04)
[2018-01-08] MEDS: Fludrocortisone 0.1 MG Tab PO SCH ×2 (07:27→19:31)
[2018-01-08] MEDS: Niacin 500 MG Tab PO SCH ×2 (07:27→17:04)
[2018-01-08] MEDS: Cyanocobalamin (Vitamin B12) 1,000 MCG Tab PO SCH (07:28)
[2018-01-08] MEDS: Omeprazole 20 MG Cap.CR PO SCH (07:28)
[2018-01-08] MEDS: Potassium Chloride 10% 20 MEQ/15 ML Soln 15 ML UD Cup PO SCH ×3 (07:28→19:32)
[2018-01-08] MEDS: Clotrimazole 1% Crm 30 GM Tube TOP PRN ×2 (07:29→20:07)
[2018-01-08] MEDS: Cholecalciferol (Vitamin D3) 25 MCG Tab PO SCH (07:29)
[2018-01-08] MEDS: Chlorhexidine Gluconate 0.12% Oral Rinse 15 ML Cup MUCMEM SCH ×2 (08:15→19:32)
[2018-01-08] MEDS: LEVOTHYROXINE SODIUM 137 MCG PO SCH (19:31)
[2018-01-08] MEDS: Simvastatin 10 MG Tab PO SCH (19:32)
[2018-01-08] MEDS: buPROPion 100 MG Tab PO SCH (19:32)
[2018-01-09] MEDS: Metoclopramide 10 MG Tab PO SCH ×2 (08:29→17:46)
[2018-01-09] MEDS: Albuterol/Ipratropium 3.0-0.5 MG/3 ML Neb Soln NEB SCH ×2 (08:29→19:28)
[2018-01-09] MEDS: CEPHALEXIN 500 MG PO SCH ×2 (08:29→17:46)
[2018-01-09] MEDS: Fludrocortisone 0.1 MG Tab PO SCH ×2 (08:29→19:29)
[2018-01-09] MEDS: Citalopram 20 MG Tab PO SCH (08:29)
[2018-01-09] MEDS: Furosemide 20 MG Tab PO SCH (08:30)
[2018-01-09] MEDS: Ibuprofen 600 MG Tab PO SCH ×2 (08:30→17:46)
[2018-01-09] MEDS: Omeprazole 20 MG Cap.CR PO SCH (08:30)
[2018-01-09] MEDS: Potassium Chloride 10% 20 MEQ/15 ML Soln 15 ML UD Cup PO SCH ×3 (08:31→19:31)
[2018-01-09] MEDS: Cyanocobalamin (Vitamin B12) 1,000 MCG Tab PO SCH (08:31)
[2018-01-09] MEDS: Cholecalciferol (Vitamin D3) 25 MCG Tab PO SCH (08:32)
[2018-01-09] MEDS: Chlorhexidine Gluconate 0.12% Oral Rinse 15 ML Cup MUCMEM SCH ×2 (08:32→19:30)
[2018-01-09] MEDS: Niacin 500 MG Tab PO SCH ×2 (08:33→17:47)
[2018-01-09] MEDS: buPROPion 100 MG Tab PO SCH (19:29)
[2018-01-09] MEDS: Simvastatin 10 MG Tab PO SCH (19:29)
[2018-01-09] MEDS: LEVOTHYROXINE SODIUM 137 MCG PO SCH (19:29)
[2018-01-10] MEDS: traMADol 50 MG Tab PO PRN ×3 (01:21→20:00)
[2018-01-10] MEDS: Acetaminophen 325 MG Tab PO PRN ×3 (01:22→19:58)
[2018-01-10] MEDS: Citalopram 20 MG Tab PO SCH (08:23)
[2018-01-10] MEDS: Metoclopramide 10 MG Tab PO SCH ×2 (08:23→17:43)
[2018-01-10] MEDS: CEPHALEXIN 500 MG PO SCH ×2 (08:23→17:43)
[2018-01-10] MEDS: Fludrocortisone 0.1 MG Tab PO SCH ×2 (08:24→19:53)
[2018-01-10] MEDS: Ibuprofen 600 MG Tab PO SCH ×2 (08:24→17:43)
[2018-01-10] MEDS: Albuterol/Ipratropium 3.0-0.5 MG/3 ML Neb Soln NEB SCH ×2 (08:24→19:53)
[2018-01-10] MEDS: Furosemide 20 MG Tab PO SCH (08:24)
[2018-01-10] MEDS: Niacin 500 MG Tab PO SCH ×2 (08:25→17:44)
[2018-01-10] MEDS: Omeprazole 20 MG Cap.CR PO SCH (08:25)
[2018-01-10] MEDS: Potassium Chloride 10% 20 MEQ/15 ML Soln 15 ML UD Cup PO SCH ×3 (08:26→19:55)
[2018-01-10] MEDS: Cyanocobalamin (Vitamin B12) 1,000 MCG Tab PO SCH (08:26)
[2018-01-10] MEDS: Cholecalciferol (Vitamin D3) 25 MCG Tab PO SCH (08:27)
[2018-01-10] MEDS: Chlorhexidine Gluconate 0.12% Oral Rinse 15 ML Cup MUCMEM SCH ×2 (08:27→19:54)
[2018-01-10] MEDS: LEVOTHYROXINE SODIUM 137 MCG PO SCH (19:53)
[2018-01-10] MEDS: buPROPion 100 MG Tab PO SCH (19:54)
[2018-01-10] MEDS: Simvastatin 10 MG Tab PO SCH (19:54)
[2018-01-11] MEDS: Clotrimazole 1% Crm 30 GM Tube TOP PRN (08:38)
[2018-01-11] MEDS: Fludrocortisone 0.1 MG Tab PO SCH ×2 (08:39→19:14)
[2018-01-11] MEDS: Metoclopramide 10 MG Tab PO SCH ×2 (08:39→17:59)
[2018-01-11] MEDS: CEPHALEXIN 500 MG PO SCH ×2 (08:39→17:59)
[2018-01-11] MEDS: Citalopram 20 MG Tab PO SCH (08:39)
[2018-01-11] MEDS: Albuterol/Ipratropium 3.0-0.5 MG/3 ML Neb Soln NEB SCH ×2 (08:39→19:12)
[2018-01-11] MEDS: Ibuprofen 600 MG Tab PO SCH ×2 (08:40→17:59)
[2018-01-11] MEDS: Furosemide 20 MG Tab PO SCH (08:40)
[2018-01-11] MEDS: Niacin 500 MG Tab PO SCH ×2 (08:41→18:00)
[2018-01-11] MEDS: Omeprazole 20 MG Cap.CR PO SCH (08:41)
[2018-01-11] MEDS: Cyanocobalamin (Vitamin B12) 1,000 MCG Tab PO SCH (08:44)
[2018-01-11] MEDS: Cholecalciferol (Vitamin D3) 25 MCG Tab PO SCH (08:44)
[2018-01-11] MEDS: Potassium Chloride 10% 20 MEQ/15 ML Soln 15 ML UD Cup PO SCH ×3 (09:30→19:15)
[2018-01-11] MEDS: Chlorhexidine Gluconate 0.12% Oral Rinse 15 ML Cup MUCMEM SCH ×2 (10:13→19:13)
[2018-01-11] MEDS: LEVOTHYROXINE SODIUM 137 MCG PO SCH (19:14)
[2018-01-11] MEDS: buPROPion 100 MG Tab PO SCH (19:15)
[2018-01-11] MEDS: Simvastatin 10 MG Tab PO SCH (19:15)
[2018-01-11] MEDS: traMADol 50 MG Tab PO PRN (19:17)
[2018-01-11] MEDS: Acetaminophen 325 MG Tab PO PRN (19:18)
[2018-01-12] MEDS: Metoclopramide 10 MG Tab PO SCH ×2 (08:14→17:28)
[2018-01-12] MEDS: Citalopram 20 MG Tab PO SCH (08:14)
[2018-01-12] MEDS: Fludrocortisone 0.1 MG Tab PO SCH ×2 (08:14→19:37)
[2018-01-12] MEDS: CEPHALEXIN 500 MG PO SCH ×2 (08:14→17:28)
[2018-01-12] MEDS: Ibuprofen 600 MG Tab PO SCH ×2 (08:15→17:28)
[2018-01-12] MEDS: Furosemide 20 MG Tab PO SCH (08:15)
[2018-01-12] MEDS: Omeprazole 20 MG Cap.CR PO SCH (08:16)
[2018-01-12] MEDS: Chlorhexidine Gluconate 0.12% Oral Rinse 15 ML Cup MUCMEM SCH ×2 (08:16→19:38)
[2018-01-12] MEDS: Clotrimazole 1% Crm 30 GM Tube TOP PRN (08:16)
[2018-01-12] MEDS: Albuterol/Ipratropium 3.0-0.5 MG/3 ML Neb Soln NEB SCH ×2 (08:16→19:37)
[2018-01-12] MEDS: Niacin 500 MG Tab PO SCH ×2 (08:17→17:29)
[2018-01-12] MEDS: Cholecalciferol (Vitamin D3) 25 MCG Tab PO SCH (08:18)
[2018-01-12] MEDS: Cyanocobalamin (Vitamin B12) 1,000 MCG Tab PO SCH (08:18)
[2018-01-12] MEDS: Potassium Chloride 10% 20 MEQ/15 ML Soln 15 ML UD Cup PO SCH ×3 (08:19→19:38)
[2018-01-12] MEDS: traMADol 50 MG Tab PO PRN (08:23)
[2018-01-12] MEDS: Acetaminophen 325 MG Tab PO PRN ×2 (08:24→18:02)
[2018-01-12] MEDS: LEVOTHYROXINE SODIUM 137 MCG PO SCH (19:37)
[2018-01-12] MEDS: buPROPion 100 MG Tab PO SCH (19:38)
[2018-01-12] MEDS: Simvastatin 10 MG Tab PO SCH (19:39)
[2018-01-13] MEDS: Omeprazole 20 MG Cap.CR PO SCH (08:14)
[2018-01-13] MEDS: Furosemide 20 MG Tab PO SCH (08:15)
[2018-01-13] MEDS: Ibuprofen 600 MG Tab PO SCH ×2 (08:15→18:11)
[2018-01-13] MEDS: Metoclopramide 10 MG Tab PO SCH ×2 (08:16→18:10)
[2018-01-13] MEDS: Fludrocortisone 0.1 MG Tab PO SCH ×2 (08:16→19:46)
[2018-01-13] MEDS: Citalopram 20 MG Tab PO SCH (08:16)
[2018-01-13] MEDS: CEPHALEXIN 500 MG PO SCH ×2 (08:16→18:10)
[2018-01-13] MEDS: Chlorhexidine Gluconate 0.12% Oral Rinse 15 ML Cup MUCMEM SCH ×2 (08:17→19:46)
[2018-01-13] MEDS: Cholecalciferol (Vitamin D3) 25 MCG Tab PO SCH (08:17)
[2018-01-13] MEDS: Albuterol/Ipratropium 3.0-0.5 MG/3 ML Neb Soln NEB SCH ×2 (08:17→19:45)
[2018-01-13] MEDS: Clotrimazole 1% Crm 30 GM Tube TOP PRN ×2 (08:17→19:46)
[2018-01-13] MEDS: Cyanocobalamin (Vitamin B12) 1,000 MCG Tab PO SCH (08:18)
[2018-01-13] MEDS: Potassium Chloride 10% 20 MEQ/15 ML Soln 15 ML UD Cup PO SCH ×3 (08:19→19:47)
[2018-01-13] MEDS: Niacin 500 MG Tab PO SCH ×2 (08:20→18:12)
[2018-01-13] MEDS: LEVOTHYROXINE SODIUM 137 MCG PO SCH (19:46)
[2018-01-13] MEDS: buPROPion 100 MG Tab PO SCH (19:47)
[2018-01-13] MEDS: Simvastatin 10 MG Tab PO SCH (19:48)
[2018-01-14] MEDS: Albuterol/Ipratropium 3.0-0.5 MG/3 ML Neb Soln NEB SCH ×2 (07:38→19:32)
[2018-01-14] MEDS: Furosemide 20 MG Tab PO SCH (07:38)
[2018-01-14] MEDS: Fludrocortisone 0.1 MG Tab PO SCH ×2 (07:38→19:31)
[2018-01-14] MEDS: Metoclopramide 10 MG Tab PO SCH ×2 (07:38→17:54)
[2018-01-14] MEDS: Citalopram 20 MG Tab PO SCH (07:38)
[2018-01-14] MEDS: CEPHALEXIN 500 MG PO SCH ×2 (07:38→17:54)
[2018-01-14] MEDS: Niacin 500 MG Tab PO SCH ×2 (07:39→17:55)
[2018-01-14] MEDS: Ibuprofen 600 MG Tab PO SCH ×2 (07:39→17:54)
[2018-01-14] MEDS: Omeprazole 20 MG Cap.CR PO SCH (07:39)
[2018-01-14] MEDS: Potassium Chloride 10% 20 MEQ/15 ML Soln 15 ML UD Cup PO SCH ×3 (07:40→19:31)
[2018-01-14] MEDS: Cholecalciferol (Vitamin D3) 25 MCG Tab PO SCH (07:40)
[2018-01-14] MEDS: Cyanocobalamin (Vitamin B12) 1,000 MCG Tab PO SCH (07:40)
[2018-01-14] MEDS: Chlorhexidine Gluconate 0.12% Oral Rinse 15 ML Cup MUCMEM SCH ×2 (08:02→19:32)
[2018-01-14] MEDS: Simvastatin 10 MG Tab PO SCH (19:31)
[2018-01-14] MEDS: buPROPion 100 MG Tab PO SCH (19:31)
[2018-01-14] MEDS: LEVOTHYROXINE SODIUM 137 MCG PO SCH (19:31)
[2018-01-14] MEDS: Clotrimazole 1% Crm 30 GM Tube TOP PRN (19:32)
[2018-01-15] MEDS: Albuterol/Ipratropium 3.0-0.5 MG/3 ML Neb Soln NEB SCH ×2 (07:57→19:38)
[2018-01-15] MEDS: Fludrocortisone 0.1 MG Tab PO SCH ×2 (07:57→19:39)
[2018-01-15] MEDS: CEPHALEXIN 500 MG PO SCH ×2 (07:57→17:44)
[2018-01-15] MEDS: Furosemide 20 MG Tab PO SCH (07:57)
[2018-01-15] MEDS: Metoclopramide 10 MG Tab PO SCH ×2 (07:57→17:44)
[2018-01-15] MEDS: Citalopram 20 MG Tab PO SCH (07:57)
[2018-01-15] MEDS: Ibuprofen 600 MG Tab PO SCH ×2 (07:58→17:44)
[2018-01-15] MEDS: Omeprazole 20 MG Cap.CR PO SCH (07:58)
[2018-01-15] MEDS: Niacin 500 MG Tab PO SCH ×2 (07:58→17:44)
[2018-01-15] MEDS: Cyanocobalamin (Vitamin B12) 1,000 MCG Tab PO SCH (07:59)
[2018-01-15] MEDS: Chlorhexidine Gluconate 0.12% Oral Rinse 15 ML Cup MUCMEM SCH ×2 (07:59→19:39)
[2018-01-15] MEDS: Potassium Chloride 10% 20 MEQ/15 ML Soln 15 ML UD Cup PO SCH ×3 (07:59→19:40)
[2018-01-15] MEDS: Cholecalciferol (Vitamin D3) 25 MCG Tab PO SCH (07:59)
[2018-01-15] MEDS: buPROPion 100 MG Tab PO SCH (19:38)
[2018-01-15] MEDS: LEVOTHYROXINE SODIUM 137 MCG PO SCH (19:39)
[2018-01-15] MEDS: Simvastatin 10 MG Tab PO SCH (19:39)
[2018-01-15] MEDS: Clotrimazole 1% Crm 30 GM Tube TOP PRN (19:40)
[2018-01-16] MEDS: Citalopram 20 MG Tab PO SCH (07:39)
[2018-01-16] MEDS: CEPHALEXIN 500 MG PO SCH ×2 (07:39→17:09)
[2018-01-16] MEDS: Metoclopramide 10 MG Tab PO SCH ×2 (07:39→17:09)
[2018-01-16] MEDS: Fludrocortisone 0.1 MG Tab PO SCH ×2 (07:40→19:50)
[2018-01-16] MEDS: Albuterol/Ipratropium 3.0-0.5 MG/3 ML Neb Soln NEB SCH ×2 (07:40→19:50)
[2018-01-16] MEDS: Ibuprofen 600 MG Tab PO SCH ×2 (07:41→17:09)
[2018-01-16] MEDS: Furosemide 20 MG Tab PO SCH (07:41)
[2018-01-16] MEDS: Omeprazole 20 MG Cap.CR PO SCH (07:44)
[2018-01-16] MEDS: Niacin 500 MG Tab PO SCH ×2 (07:44→17:10)
[2018-01-16] MEDS: Potassium Chloride 10% 20 MEQ/15 ML Soln 15 ML UD Cup PO SCH ×3 (07:45→19:50)
[2018-01-16] MEDS: Cholecalciferol (Vitamin D3) 25 MCG Tab PO SCH (07:46)
[2018-01-16] MEDS: Acetaminophen 325 MG Tab PO PRN (07:46)
[2018-01-16] MEDS: Cyanocobalamin (Vitamin B12) 1,000 MCG Tab PO SCH (07:46)
[2018-01-16] MEDS: traMADol 50 MG Tab PO PRN (07:47)
[2018-01-16] MEDS: Chlorhexidine Gluconate 0.12% Oral Rinse 15 ML Cup MUCMEM SCH ×2 (08:31→19:50)
[2018-01-16] MEDS: Simvastatin 10 MG Tab PO SCH (19:50)
[2018-01-16] MEDS: buPROPion 100 MG Tab PO SCH (19:50)
[2018-01-16] MEDS: LEVOTHYROXINE SODIUM 137 MCG PO SCH (19:50)
[2018-01-16] MEDS: Clotrimazole 1% Crm 30 GM Tube TOP PRN (19:51)
[2018-01-17] MEDS: CEPHALEXIN 500 MG PO SCH ×2 (07:21→17:52)
[2018-01-17] MEDS: Citalopram 20 MG Tab PO SCH (07:21)
[2018-01-17] MEDS: Metoclopramide 10 MG Tab PO SCH ×2 (07:21→17:52)
[2018-01-17] MEDS: Albuterol/Ipratropium 3.0-0.5 MG/3 ML Neb Soln NEB SCH ×2 (07:22→19:21)
[2018-01-17] MEDS: Fludrocortisone 0.1 MG Tab PO SCH ×2 (07:22→19:20)
[2018-01-17] MEDS: Furosemide 20 MG Tab PO SCH (07:22)
[2018-01-17] MEDS: Omeprazole 20 MG Cap.CR PO SCH (07:23)
[2018-01-17] MEDS: Ibuprofen 600 MG Tab PO SCH ×2 (07:23→17:52)
[2018-01-17] MEDS: Potassium Chloride 10% 20 MEQ/15 ML Soln 15 ML UD Cup PO SCH ×3 (07:23→19:20)
[2018-01-17] MEDS: Niacin 500 MG Tab PO SCH ×2 (07:23→17:52)
[2018-01-17] MEDS: Cholecalciferol (Vitamin D3) 25 MCG Tab PO SCH (07:24)
[2018-01-17] MEDS: Cyanocobalamin (Vitamin B12) 1,000 MCG Tab PO SCH (07:24)
[2018-01-17] MEDS: Clotrimazole 1% Crm 30 GM Tube TOP PRN ×2 (07:55→20:21)
[2018-01-17] MEDS: Chlorhexidine Gluconate 0.12% Oral Rinse 15 ML Cup MUCMEM SCH ×2 (08:00→19:21)
[2018-01-17] MEDS: LEVOTHYROXINE SODIUM 137 MCG PO SCH (19:20)
[2018-01-17] MEDS: buPROPion 100 MG Tab PO SCH (19:20)
[2018-01-17] MEDS: Simvastatin 10 MG Tab PO SCH (19:21)
[2018-01-18] MEDS: Albuterol/Ipratropium 3.0-0.5 MG/3 ML Neb Soln NEB SCH ×2 (07:22→19:07)
[2018-01-18] MEDS: CEPHALEXIN 500 MG PO SCH ×2 (07:22→17:12)
[2018-01-18] MEDS: Metoclopramide 10 MG Tab PO SCH ×2 (07:22→17:12)
[2018-01-18] MEDS: Citalopram 20 MG Tab PO SCH (07:22)
[2018-01-18] MEDS: Fludrocortisone 0.1 MG Tab PO SCH ×2 (07:23→19:06)
[2018-01-18] MEDS: Furosemide 20 MG Tab PO SCH (07:23)
[2018-01-18] MEDS: Ibuprofen 600 MG Tab PO SCH ×2 (07:23→17:12)
[2018-01-18] MEDS: Omeprazole 20 MG Cap.CR PO SCH (07:23)
[2018-01-18] MEDS: Niacin 500 MG Tab PO SCH ×2 (07:23→17:12)
[2018-01-18] MEDS: Potassium Chloride 10% 20 MEQ/15 ML Soln 15 ML UD Cup PO SCH ×3 (07:24→19:06)
[2018-01-18] MEDS: Cholecalciferol (Vitamin D3) 25 MCG Tab PO SCH (07:24)
[2018-01-18] MEDS: Cyanocobalamin (Vitamin B12) 1,000 MCG Tab PO SCH (07:24)
[2018-01-18] MEDS: Chlorhexidine Gluconate 0.12% Oral Rinse 15 ML Cup MUCMEM SCH ×2 (08:16→19:07)
[2018-01-18] MEDS: Clotrimazole 1% Crm 30 GM Tube TOP PRN (08:16)
[2018-01-18] MEDS: buPROPion 100 MG Tab PO SCH (19:06)
[2018-01-18] MEDS: Simvastatin 10 MG Tab PO SCH (19:06)
[2018-01-18] MEDS: LEVOTHYROXINE SODIUM 137 MCG PO SCH (19:06)
[2018-01-19] MEDS: Acetaminophen 325 MG Tab PO PRN ×2 (05:11→18:02)
[2018-01-19] MEDS: Citalopram 20 MG Tab PO SCH (08:19)
[2018-01-19] MEDS: Metoclopramide 10 MG Tab PO SCH ×2 (08:19→17:44)
[2018-01-19] MEDS: Albuterol/Ipratropium 3.0-0.5 MG/3 ML Neb Soln NEB SCH ×2 (08:20→19:18)
[2018-01-19] MEDS: CEPHALEXIN 500 MG PO SCH ×2 (08:20→17:45)
[2018-01-19] MEDS: Fludrocortisone 0.1 MG Tab PO SCH ×2 (08:20→19:17)
[2018-01-19] MEDS: Furosemide 20 MG Tab PO SCH (08:21)
[2018-01-19] MEDS: Ibuprofen 600 MG Tab PO SCH ×2 (08:21→17:45)
[2018-01-19] MEDS: Omeprazole 20 MG Cap.CR PO SCH (08:22)
[2018-01-19] MEDS: Niacin 500 MG Tab PO SCH ×2 (08:22→17:46)
[2018-01-19] MEDS: Potassium Chloride 10% 20 MEQ/15 ML Soln 15 ML UD Cup PO SCH ×3 (08:22→19:17)
[2018-01-19] MEDS: Cyanocobalamin (Vitamin B12) 1,000 MCG Tab PO SCH (08:23)
[2018-01-19] MEDS: Chlorhexidine Gluconate 0.12% Oral Rinse 15 ML Cup MUCMEM SCH ×2 (08:24→19:17)
[2018-01-19] MEDS: Cholecalciferol (Vitamin D3) 25 MCG Tab PO SCH (08:24)
[2018-01-19] MEDS: traMADol 50 MG Tab PO PRN (18:01)
[2018-01-19] MEDS: buPROPion 100 MG Tab PO SCH (19:17)
[2018-01-19] MEDS: Simvastatin 10 MG Tab PO SCH (19:17)
[2018-01-19] MEDS: LEVOTHYROXINE SODIUM 137 MCG PO SCH (19:17)
[2018-01-19] MEDS: Clotrimazole 1% Crm 30 GM Tube TOP PRN (19:18)
[2018-01-20] MEDS: Fludrocortisone 0.1 MG Tab PO SCH ×2 (07:17→19:11)
[2018-01-20] MEDS: Metoclopramide 10 MG Tab PO SCH ×2 (07:17→17:09)
[2018-01-20] MEDS: Citalopram 20 MG Tab PO SCH (07:17)
[2018-01-20] MEDS: Albuterol/Ipratropium 3.0-0.5 MG/3 ML Neb Soln NEB SCH ×2 (07:17→19:10)
[2018-01-20] MEDS: Furosemide 20 MG Tab PO SCH (07:17)
[2018-01-20] MEDS: Ibuprofen 600 MG Tab PO SCH ×2 (07:17→17:09)
[2018-01-20] MEDS: CEPHALEXIN 500 MG PO SCH ×2 (07:17→17:09)
[2018-01-20] MEDS: Omeprazole 20 MG Cap.CR PO SCH (07:18)
[2018-01-20] MEDS: Niacin 500 MG Tab PO SCH ×2 (07:18→17:09)
[2018-01-20] MEDS: Potassium Chloride 10% 20 MEQ/15 ML Soln 15 ML UD Cup PO SCH ×3 (07:19→19:12)
[2018-01-20] MEDS: Cyanocobalamin (Vitamin B12) 1,000 MCG Tab PO SCH (07:19)
[2018-01-20] MEDS: Clotrimazole 1% Crm 30 GM Tube TOP PRN (07:20)
[2018-01-20] MEDS: Cholecalciferol (Vitamin D3) 25 MCG Tab PO SCH (07:20)
[2018-01-20] MEDS: Acetaminophen 325 MG Tab PO PRN ×2 (07:24→19:22)
[2018-01-20] MEDS: traMADol 50 MG Tab PO PRN ×2 (07:25→19:20)
[2018-01-20] MEDS: Chlorhexidine Gluconate 0.12% Oral Rinse 15 ML Cup MUCMEM SCH ×2 (08:26→19:12)
[2018-01-20] MEDS: Simvastatin 10 MG Tab PO SCH (19:10)
[2018-01-20] MEDS: buPROPion 100 MG Tab PO SCH (19:11)
[2018-01-20] MEDS: LEVOTHYROXINE SODIUM 137 MCG PO SCH (19:11)
[2018-01-20] MEDS: Ibuprofen 600 MG Tab PO PRN (19:17)
[2018-01-21] MEDS: Metoclopramide 10 MG Tab PO SCH ×2 (07:47→17:20)
[2018-01-21] MEDS: Citalopram 20 MG Tab PO SCH (07:47)
[2018-01-21] MEDS: CEPHALEXIN 500 MG PO SCH ×2 (07:48→17:20)
[2018-01-21] MEDS: Fludrocortisone 0.1 MG Tab PO SCH ×2 (07:48→19:40)
[2018-01-21] MEDS: Ibuprofen 600 MG Tab PO SCH ×2 (07:48→17:20)
[2018-01-21] MEDS: Furosemide 20 MG Tab PO SCH (07:48)
[2018-01-21] MEDS: Albuterol/Ipratropium 3.0-0.5 MG/3 ML Neb Soln NEB SCH ×2 (07:48→19:39)
[2018-01-21] MEDS: Potassium Chloride 10% 20 MEQ/15 ML Soln 15 ML UD Cup PO SCH ×3 (07:49→19:41)
[2018-01-21] MEDS: Niacin 500 MG Tab PO SCH ×2 (07:49→17:21)
[2018-01-21] MEDS: Omeprazole 20 MG Cap.CR PO SCH (07:49)
[2018-01-21] MEDS: Cholecalciferol (Vitamin D3) 25 MCG Tab PO SCH (07:50)
[2018-01-21] MEDS: Cyanocobalamin (Vitamin B12) 1,000 MCG Tab PO SCH (07:50)
[2018-01-21] MEDS: Acetaminophen 325 MG Tab PO PRN (07:50)
[2018-01-21] MEDS: traMADol 50 MG Tab PO PRN (07:51)
[2018-01-21] MEDS: Clotrimazole 1% Crm 30 GM Tube TOP PRN (07:52)
[2018-01-21] MEDS: Chlorhexidine Gluconate 0.12% Oral Rinse 15 ML Cup MUCMEM SCH ×2 (09:38→19:41)
[2018-01-21] MEDS: LEVOTHYROXINE SODIUM 137 MCG PO SCH (19:40)
[2018-01-21] MEDS: Simvastatin 10 MG Tab PO SCH (19:42)
[2018-01-21] MEDS: buPROPion 100 MG Tab PO SCH (19:42)
[2018-01-22] MEDS: Acetaminophen 325 MG Tab PO PRN ×2 (08:17→19:17)
[2018-01-22] MEDS: traMADol 50 MG Tab PO PRN ×2 (08:18→19:17)
[2018-01-22] MEDS: Metoclopramide 10 MG Tab PO SCH ×2 (08:20→18:23)
[2018-01-22] MEDS: Citalopram 20 MG Tab PO SCH (08:20)
[2018-01-22] MEDS: CEPHALEXIN 500 MG PO SCH ×2 (08:20→18:24)
[2018-01-22] MEDS: Ibuprofen 600 MG Tab PO SCH ×2 (08:21→18:24)
[2018-01-22] MEDS: Fludrocortisone 0.1 MG Tab PO SCH ×2 (08:21→19:11)
[2018-01-22] MEDS: Furosemide 20 MG Tab PO SCH (08:21)
[2018-01-22] MEDS: Albuterol/Ipratropium 3.0-0.5 MG/3 ML Neb Soln NEB SCH ×2 (08:21→19:11)
[2018-01-22] MEDS: Omeprazole 20 MG Cap.CR PO SCH (08:22)
[2018-01-22] MEDS: Niacin 500 MG Tab PO SCH ×2 (08:23→18:24)
[2018-01-22] MEDS: Potassium Chloride 10% 20 MEQ/15 ML Soln 15 ML UD Cup PO SCH ×3 (08:23→19:12)
[2018-01-22] MEDS: Cyanocobalamin (Vitamin B12) 1,000 MCG Tab PO SCH (08:24)
[2018-01-22] MEDS: Cholecalciferol (Vitamin D3) 25 MCG Tab PO SCH (08:25)
[2018-01-22] MEDS: Chlorhexidine Gluconate 0.12% Oral Rinse 15 ML Cup MUCMEM SCH ×2 (08:25→19:11)
[2018-01-22] MEDS: LEVOTHYROXINE SODIUM 137 MCG PO SCH (19:10)
[2018-01-22] MEDS: Simvastatin 10 MG Tab PO SCH (19:10)
[2018-01-22] MEDS: buPROPion 100 MG Tab PO SCH (19:10)
[2018-01-23] MEDS: CEPHALEXIN 500 MG PO SCH ×2 (08:10→17:53)
[2018-01-23] MEDS: Furosemide 20 MG Tab PO SCH (08:10)
[2018-01-23] MEDS: Metoclopramide 10 MG Tab PO SCH ×2 (08:10→17:53)
[2018-01-23] MEDS: Citalopram 20 MG Tab PO SCH (08:10)
[2018-01-23] MEDS: Albuterol/Ipratropium 3.0-0.5 MG/3 ML Neb Soln NEB SCH ×2 (08:10→19:38)
[2018-01-23] MEDS: Fludrocortisone 0.1 MG Tab PO SCH ×2 (08:10→19:38)
[2018-01-23] MEDS: Ibuprofen 600 MG Tab PO SCH ×2 (08:11→17:53)
[2018-01-23] MEDS: Niacin 500 MG Tab PO SCH ×2 (08:11→17:54)
[2018-01-23] MEDS: Omeprazole 20 MG Cap.CR PO SCH (08:12)
[2018-01-23] MEDS: Potassium Chloride 10% 20 MEQ/15 ML Soln 15 ML UD Cup PO SCH ×3 (08:12→19:39)
[2018-01-23] MEDS: Chlorhexidine Gluconate 0.12% Oral Rinse 15 ML Cup MUCMEM SCH ×2 (08:13→19:39)
[2018-01-23] MEDS: Cyanocobalamin (Vitamin B12) 1,000 MCG Tab PO SCH (08:13)
[2018-01-23] MEDS: Cholecalciferol (Vitamin D3) 25 MCG Tab PO SCH (08:13)
[2018-01-23] MEDS: LEVOTHYROXINE SODIUM 137 MCG PO SCH (19:38)
[2018-01-23] MEDS: Simvastatin 10 MG Tab PO SCH (19:39)
[2018-01-23] MEDS: buPROPion 100 MG Tab PO SCH (19:39)
[2018-01-24] MEDS: CEPHALEXIN 500 MG PO SCH ×2 (08:08→17:35)
[2018-01-24] MEDS: Metoclopramide 10 MG Tab PO SCH ×2 (08:08→17:35)
[2018-01-24] MEDS: Citalopram 20 MG Tab PO SCH (08:08)
[2018-01-24] MEDS: Furosemide 20 MG Tab PO SCH (08:09)
[2018-01-24] MEDS: Fludrocortisone 0.1 MG Tab PO SCH ×2 (08:09→19:52)
[2018-01-24] MEDS: Albuterol/Ipratropium 3.0-0.5 MG/3 ML Neb Soln NEB SCH ×2 (08:09→19:51)
[2018-01-24] MEDS: Niacin 500 MG Tab PO SCH ×2 (08:09→17:36)
[2018-01-24] MEDS: Ibuprofen 600 MG Tab PO SCH ×2 (08:09→17:35)
[2018-01-24] MEDS: Cholecalciferol (Vitamin D3) 25 MCG Tab PO SCH (08:10)
[2018-01-24] MEDS: Cyanocobalamin (Vitamin B12) 1,000 MCG Tab PO SCH (08:10)
[2018-01-24] MEDS: Omeprazole 20 MG Cap.CR PO SCH (08:10)
[2018-01-24] MEDS: Chlorhexidine Gluconate 0.12% Oral Rinse 15 ML Cup MUCMEM SCH ×2 (08:11→19:52)
[2018-01-24] MEDS: Potassium Chloride 10% 20 MEQ/15 ML Soln 15 ML UD Cup PO SCH ×3 (08:11→19:52)
[2018-01-24] MEDS: LEVOTHYROXINE SODIUM 137 MCG PO SCH (19:52)
[2018-01-24] MEDS: buPROPion 100 MG Tab PO SCH (19:53)
[2018-01-24] MEDS: Simvastatin 10 MG Tab PO SCH (19:53)
[2018-01-25] MEDS: CEPHALEXIN 500 MG PO SCH ×2 (07:42→17:30)
[2018-01-25] MEDS: Albuterol/Ipratropium 3.0-0.5 MG/3 ML Neb Soln NEB SCH ×2 (07:42→19:28)
[2018-01-25] MEDS: Citalopram 20 MG Tab PO SCH (07:42)
[2018-01-25] MEDS: Fludrocortisone 0.1 MG Tab PO SCH ×2 (07:42→19:28)
[2018-01-25] MEDS: Metoclopramide 10 MG Tab PO SCH ×2 (07:42→17:30)
[2018-01-25] MEDS: Ibuprofen 600 MG Tab PO SCH ×2 (07:43→17:30)
[2018-01-25] MEDS: Niacin 500 MG Tab PO SCH ×2 (07:43→17:31)
[2018-01-25] MEDS: Furosemide 20 MG Tab PO SCH (07:43)
[2018-01-25] MEDS: Omeprazole 20 MG Cap.CR PO SCH (07:44)
[2018-01-25] MEDS: Potassium Chloride 10% 20 MEQ/15 ML Soln 15 ML UD Cup PO SCH ×3 (07:44→19:29)
[2018-01-25] MEDS: Cyanocobalamin (Vitamin B12) 1,000 MCG Tab PO SCH (07:45)
[2018-01-25] MEDS: Cholecalciferol (Vitamin D3) 25 MCG Tab PO SCH (07:45)
[2018-01-25] MEDS: Chlorhexidine Gluconate 0.12% Oral Rinse 15 ML Cup MUCMEM SCH ×2 (08:01→19:29)
[2018-01-25] MEDS: LEVOTHYROXINE SODIUM 137 MCG PO SCH (19:28)
[2018-01-25] MEDS: buPROPion 100 MG Tab PO SCH (19:29)
[2018-01-25] MEDS: Simvastatin 10 MG Tab PO SCH (19:30)
[2018-01-25] MEDS: Clotrimazole 1% Crm 30 GM Tube TOP PRN (19:55)
[2018-01-26] MEDS: traMADol 50 MG Tab PO PRN (03:20)
[2018-01-26] MEDS: Acetaminophen 325 MG Tab PO PRN (03:21)
[2018-01-26] MEDS: CEPHALEXIN 500 MG PO SCH ×2 (07:38→17:15)
[2018-01-26] MEDS: Albuterol/Ipratropium 3.0-0.5 MG/3 ML Neb Soln NEB SCH ×2 (07:38→19:40)
[2018-01-26] MEDS: Citalopram 20 MG Tab PO SCH (07:38)
[2018-01-26] MEDS: Fludrocortisone 0.1 MG Tab PO SCH ×2 (07:38→19:40)
[2018-01-26] MEDS: Metoclopramide 10 MG Tab PO SCH ×2 (07:38→17:15)
[2018-01-26] MEDS: Ibuprofen 600 MG Tab PO SCH ×2 (07:39→17:16)
[2018-01-26] MEDS: Niacin 500 MG Tab PO SCH ×2 (07:39→17:16)
[2018-01-26] MEDS: Furosemide 20 MG Tab PO SCH (07:39)
[2018-01-26] MEDS: Omeprazole 20 MG Cap.CR PO SCH (07:40)
[2018-01-26] MEDS: Cyanocobalamin (Vitamin B12) 1,000 MCG Tab PO SCH (07:40)
[2018-01-26] MEDS: Cholecalciferol (Vitamin D3) 25 MCG Tab PO SCH (07:40)
[2018-01-26] MEDS: Potassium Chloride 10% 20 MEQ/15 ML Soln 15 ML UD Cup PO SCH ×3 (07:42→19:41)
[2018-01-26] MEDS: Chlorhexidine Gluconate 0.12% Oral Rinse 15 ML Cup MUCMEM SCH ×2 (08:07→19:41)
[2018-01-26] MEDS: Clotrimazole 1% Crm 30 GM Tube TOP PRN ×2 (08:07→19:39)
[2018-01-26] MEDS: LEVOTHYROXINE SODIUM 137 MCG PO SCH (19:40)
[2018-01-26] MEDS: buPROPion 100 MG Tab PO SCH (19:41)
[2018-01-26] MEDS: Simvastatin 10 MG Tab PO SCH (19:42)
[2018-01-27] MEDS: Citalopram 20 MG Tab PO SCH (07:26)
[2018-01-27] MEDS: Furosemide 20 MG Tab PO SCH (07:26)
[2018-01-27] MEDS: Albuterol/Ipratropium 3.0-0.5 MG/3 ML Neb Soln NEB SCH ×2 (07:26→19:37)
[2018-01-27] MEDS: Metoclopramide 10 MG Tab PO SCH ×2 (07:26→17:17)
[2018-01-27] MEDS: CEPHALEXIN 500 MG PO SCH ×2 (07:26→17:18)
[2018-01-27] MEDS: Fludrocortisone 0.1 MG Tab PO SCH ×2 (07:26→19:37)
[2018-01-27] MEDS: Niacin 500 MG Tab PO SCH ×2 (07:27→17:19)
[2018-01-27] MEDS: Omeprazole 20 MG Cap.CR PO SCH (07:27)
[2018-01-27] MEDS: Ibuprofen 600 MG Tab PO SCH ×2 (07:27→17:18)
[2018-01-27] MEDS: Potassium Chloride 10% 20 MEQ/15 ML Soln 15 ML UD Cup PO SCH ×3 (07:27→19:39)
[2018-01-27] MEDS: Cyanocobalamin (Vitamin B12) 1,000 MCG Tab PO SCH (07:28)
[2018-01-27] MEDS: Cholecalciferol (Vitamin D3) 25 MCG Tab PO SCH (07:28)
[2018-01-27] MEDS: Clotrimazole 1% Crm 30 GM Tube TOP PRN (07:28)
[2018-01-27] MEDS: Chlorhexidine Gluconate 0.12% Oral Rinse 15 ML Cup MUCMEM SCH ×2 (08:00→19:39)
[2018-01-27] MEDS: LEVOTHYROXINE SODIUM 137 MCG PO SCH (19:38)
[2018-01-27] MEDS: buPROPion 100 MG Tab PO SCH (19:38)
[2018-01-27] MEDS: Simvastatin 10 MG Tab PO SCH (19:39)
[2018-01-28] MEDS: Citalopram 20 MG Tab PO SCH (07:35)
[2018-01-28] MEDS: Albuterol/Ipratropium 3.0-0.5 MG/3 ML Neb Soln NEB SCH ×2 (07:35→19:30)
[2018-01-28] MEDS: CEPHALEXIN 500 MG PO SCH ×2 (07:35→17:47)
[2018-01-28] MEDS: Metoclopramide 10 MG Tab PO SCH ×2 (07:35→17:47)
[2018-01-28] MEDS: Omeprazole 20 MG Cap.CR PO SCH (07:36)
[2018-01-28] MEDS: Fludrocortisone 0.1 MG Tab PO SCH ×2 (07:36→19:29)
[2018-01-28] MEDS: Niacin 500 MG Tab PO SCH ×2 (07:36→17:48)
[2018-01-28] MEDS: Ibuprofen 600 MG Tab PO SCH ×2 (07:36→17:47)
[2018-01-28] MEDS: Furosemide 20 MG Tab PO SCH (07:36)
[2018-01-28] MEDS: Potassium Chloride 10% 20 MEQ/15 ML Soln 15 ML UD Cup PO SCH ×3 (07:37→19:29)
[2018-01-28] MEDS: Cholecalciferol (Vitamin D3) 25 MCG Tab PO SCH (07:38)
[2018-01-28] MEDS: Cyanocobalamin (Vitamin B12) 1,000 MCG Tab PO SCH (07:38)
[2018-01-28] MEDS: Chlorhexidine Gluconate 0.12% Oral Rinse 15 ML Cup MUCMEM SCH ×2 (08:32→19:30)
[2018-01-28] MEDS: buPROPion 100 MG Tab PO SCH (19:29)
[2018-01-28] MEDS: Simvastatin 10 MG Tab PO SCH (19:29)
[2018-01-28] MEDS: LEVOTHYROXINE SODIUM 137 MCG PO SCH (19:29)
[2018-01-28] MEDS: Acetaminophen 325 MG Tab PO PRN (19:56)
[2018-01-29] MEDS: Citalopram 20 MG Tab PO SCH (07:37)
[2018-01-29] MEDS: CEPHALEXIN 500 MG PO SCH ×2 (07:37→17:31)
[2018-01-29] MEDS: Metoclopramide 10 MG Tab PO SCH ×2 (07:37→17:30)
[2018-01-29] MEDS: Albuterol/Ipratropium 3.0-0.5 MG/3 ML Neb Soln NEB SCH ×2 (07:38→19:11)
[2018-01-29] MEDS: Ibuprofen 600 MG Tab PO SCH ×2 (07:38→17:31)
[2018-01-29] MEDS: Furosemide 20 MG Tab PO SCH (07:38)
[2018-01-29] MEDS: Fludrocortisone 0.1 MG Tab PO SCH ×2 (07:38→19:10)
[2018-01-29] MEDS: Niacin 500 MG Tab PO SCH ×2 (07:39→17:31)
[2018-01-29] MEDS: Cyanocobalamin (Vitamin B12) 1,000 MCG Tab PO SCH (07:39)
[2018-01-29] MEDS: Omeprazole 20 MG Cap.CR PO SCH (07:39)
[2018-01-29] MEDS: Cholecalciferol (Vitamin D3) 25 MCG Tab PO SCH (07:39)
[2018-01-29] MEDS: Potassium Chloride 10% 20 MEQ/15 ML Soln 15 ML UD Cup PO SCH ×3 (07:40→19:12)
[2018-01-29] MEDS: Chlorhexidine Gluconate 0.12% Oral Rinse 15 ML Cup MUCMEM SCH ×2 (08:16→19:11)
[2018-01-29] MEDS: buPROPion 100 MG Tab PO SCH (19:10)
[2018-01-29] MEDS: Simvastatin 10 MG Tab PO SCH (19:10)
[2018-01-29] MEDS: LEVOTHYROXINE SODIUM 137 MCG PO SCH (19:10)
[2018-01-30] MEDS: Acetaminophen 325 MG Tab PO PRN ×2 (05:23→12:15)
[2018-01-30] MEDS: traMADol 50 MG Tab PO PRN (08:10)
[2018-01-30] MEDS: Metoclopramide 10 MG Tab PO SCH ×2 (08:12→17:57)
[2018-01-30] MEDS: Citalopram 20 MG Tab PO SCH (08:12)
[2018-01-30] MEDS: Fludrocortisone 0.1 MG Tab PO SCH ×2 (08:13→19:37)
[2018-01-30] MEDS: CEPHALEXIN 500 MG PO SCH ×2 (08:13→17:58)
[2018-01-30] MEDS: Albuterol/Ipratropium 3.0-0.5 MG/3 ML Neb Soln NEB SCH ×2 (08:13→19:36)
[2018-01-30] MEDS: Furosemide 20 MG Tab PO SCH (08:13)
[2018-01-30] MEDS: Niacin 500 MG Tab PO SCH ×2 (08:14→17:58)
[2018-01-30] MEDS: Ibuprofen 600 MG Tab PO SCH ×2 (08:14→17:58)
[2018-01-30] MEDS: Omeprazole 20 MG Cap.CR PO SCH (08:15)
[2018-01-30] MEDS: Potassium Chloride 10% 20 MEQ/15 ML Soln 15 ML UD Cup PO SCH ×3 (08:15→19:37)
[2018-01-30] MEDS: Cyanocobalamin (Vitamin B12) 1,000 MCG Tab PO SCH (08:16)
[2018-01-30] MEDS: Cholecalciferol (Vitamin D3) 25 MCG Tab PO SCH (08:16)
[2018-01-30] MEDS: Chlorhexidine Gluconate 0.12% Oral Rinse 15 ML Cup MUCMEM SCH ×2 (08:16→19:37)
[2018-01-30] MEDS: LEVOTHYROXINE SODIUM 137 MCG PO SCH (19:37)
[2018-01-30] MEDS: buPROPion 100 MG Tab PO SCH (19:38)
[2018-01-30] MEDS: Simvastatin 10 MG Tab PO SCH (19:38)
[2018-01-31] MEDS: traMADol 50 MG Tab PO PRN (08:18)
[2018-01-31] MEDS: Albuterol/Ipratropium 3.0-0.5 MG/3 ML Neb Soln NEB SCH ×2 (08:20→19:32)
[2018-01-31] MEDS: CEPHALEXIN 500 MG PO SCH ×2 (08:20→17:40)
[2018-01-31] MEDS: Citalopram 20 MG Tab PO SCH (08:20)
[2018-01-31] MEDS: Metoclopramide 10 MG Tab PO SCH ×2 (08:20→17:40)
[2018-01-31] MEDS: Furosemide 20 MG Tab PO SCH (08:21)
[2018-01-31] MEDS: Ibuprofen 600 MG Tab PO SCH ×2 (08:21→17:40)
[2018-01-31] MEDS: Fludrocortisone 0.1 MG Tab PO SCH ×2 (08:21→19:32)
[2018-01-31] MEDS: Niacin 500 MG Tab PO SCH ×2 (08:22→17:41)
[2018-01-31] MEDS: Omeprazole 20 MG Cap.CR PO SCH (08:22)
[2018-01-31] MEDS: Potassium Chloride 10% 20 MEQ/15 ML Soln 15 ML UD Cup PO SCH ×3 (08:23→19:33)
[2018-01-31] MEDS: Cholecalciferol (Vitamin D3) 25 MCG Tab PO SCH (08:24)
[2018-01-31] MEDS: Cyanocobalamin (Vitamin B12) 1,000 MCG Tab PO SCH (08:24)
[2018-01-31] MEDS: Chlorhexidine Gluconate 0.12% Oral Rinse 15 ML Cup MUCMEM SCH ×2 (08:25→19:33)
[2018-01-31] MEDS: buPROPion 100 MG Tab PO SCH (19:33)
[2018-01-31] MEDS: LEVOTHYROXINE SODIUM 137 MCG PO SCH (19:33)
[2018-01-31] MEDS: Simvastatin 10 MG Tab PO SCH (19:34)
[2018-02-01] MEDS: Citalopram 20 MG Tab PO SCH (07:57)
[2018-02-01] MEDS: Metoclopramide 10 MG Tab PO SCH ×2 (07:57→18:03)
[2018-02-01] MEDS: Furosemide 20 MG Tab PO SCH (07:58)
[2018-02-01] MEDS: Fludrocortisone 0.1 MG Tab PO SCH ×2 (07:58→19:54)
[2018-02-01] MEDS: Albuterol/Ipratropium 3.0-0.5 MG/3 ML Neb Soln NEB SCH ×2 (07:58→20:36)
[2018-02-01] MEDS: CEPHALEXIN 500 MG PO SCH ×2 (07:58→18:04)
[2018-02-01] MEDS: Niacin 500 MG Tab PO SCH ×2 (07:59→18:04)
[2018-02-01] MEDS: Omeprazole 20 MG Cap.CR PO SCH (07:59)
[2018-02-01] MEDS: Ibuprofen 600 MG Tab PO SCH ×2 (07:59→18:04)
[2018-02-01] MEDS: Potassium Chloride 10% 20 MEQ/15 ML Soln 15 ML UD Cup PO SCH ×3 (08:00→19:57)
[2018-02-01] MEDS: Cyanocobalamin (Vitamin B12) 1,000 MCG Tab PO SCH (08:01)
[2018-02-01] MEDS: Cholecalciferol (Vitamin D3) 25 MCG Tab PO SCH (08:01)
[2018-02-01] MEDS: Chlorhexidine Gluconate 0.12% Oral Rinse 15 ML Cup MUCMEM SCH ×2 (08:02→19:56)
[2018-02-01] MEDS: LEVOTHYROXINE SODIUM 137 MCG PO SCH (19:55)
[2018-02-01] MEDS: buPROPion 100 MG Tab PO SCH (19:57)
[2018-02-01] MEDS: Simvastatin 10 MG Tab PO SCH (19:58)
[2018-02-02] MEDS: Omeprazole 20 MG Cap.CR PO SCH (08:43)
[2018-02-02] MEDS: Ibuprofen 600 MG Tab PO SCH ×2 (08:44→18:00)
[2018-02-02] MEDS: Fludrocortisone 0.1 MG Tab PO SCH ×2 (08:45→20:18)
[2018-02-02] MEDS: Citalopram 20 MG Tab PO SCH (08:45)
[2018-02-02] MEDS: CEPHALEXIN 500 MG PO SCH ×2 (08:45→17:59)
[2018-02-02] MEDS: Furosemide 20 MG Tab PO SCH (08:45)
[2018-02-02] MEDS: Metoclopramide 10 MG Tab PO SCH ×2 (08:46→17:59)
[2018-02-02] MEDS: Albuterol/Ipratropium 3.0-0.5 MG/3 ML Neb Soln NEB SCH ×2 (08:46→20:18)
[2018-02-02] MEDS: Niacin 500 MG Tab PO SCH ×2 (08:46→18:00)
[2018-02-02] MEDS: Cholecalciferol (Vitamin D3) 25 MCG Tab PO SCH (08:47)
[2018-02-02] MEDS: Cyanocobalamin (Vitamin B12) 1,000 MCG Tab PO SCH (08:47)
[2018-02-02] MEDS: Potassium Chloride 10% 20 MEQ/15 ML Soln 15 ML UD Cup PO SCH ×3 (08:49→20:19)
[2018-02-02] MEDS: Chlorhexidine Gluconate 0.12% Oral Rinse 15 ML Cup MUCMEM SCH ×2 (08:50→20:19)
[2018-02-02] MEDS: Atropine/Diphenoxylate 0.025-2.5 MG Tab PO PRN (18:01)
[2018-02-02] MEDS: LEVOTHYROXINE SODIUM 137 MCG PO SCH (20:19)
[2018-02-02] MEDS: buPROPion 100 MG Tab PO SCH (20:19)
[2018-02-02] MEDS: Simvastatin 10 MG Tab PO SCH (20:20)
[2018-02-03] MEDS: Citalopram 20 MG Tab PO SCH (08:12)
[2018-02-03] MEDS: Metoclopramide 10 MG Tab PO SCH ×2 (08:12→18:13)
[2018-02-03] MEDS: CEPHALEXIN 500 MG PO SCH ×2 (08:12→18:13)
[2018-02-03] MEDS: Fludrocortisone 0.1 MG Tab PO SCH ×2 (08:12→21:03)
[2018-02-03] MEDS: Furosemide 20 MG Tab PO SCH (08:13)
[2018-02-03] MEDS: Ibuprofen 600 MG Tab PO SCH ×2 (08:13→18:13)
[2018-02-03] MEDS: Niacin 500 MG Tab PO SCH ×2 (08:14→18:13)
[2018-02-03] MEDS: Omeprazole 20 MG Cap.CR PO SCH (08:14)
[2018-02-03] MEDS: Albuterol/Ipratropium 3.0-0.5 MG/3 ML Neb Soln NEB SCH ×2 (08:15→21:03)
[2018-02-03] MEDS: Clotrimazole 1% Crm 30 GM Tube TOP PRN (08:15)
[2018-02-03] MEDS: Cholecalciferol (Vitamin D3) 25 MCG Tab PO SCH (08:15)
[2018-02-03] MEDS: Potassium Chloride 10% 20 MEQ/15 ML Soln 15 ML UD Cup PO SCH ×3 (08:16→21:05)
[2018-02-03] MEDS: Cyanocobalamin (Vitamin B12) 1,000 MCG Tab PO SCH (08:16)
[2018-02-03] MEDS: Chlorhexidine Gluconate 0.12% Oral Rinse 15 ML Cup MUCMEM SCH ×2 (08:16→21:05)
[2018-02-03] MEDS: LEVOTHYROXINE SODIUM 137 MCG PO SCH (21:03)
[2018-02-03] MEDS: Simvastatin 10 MG Tab PO SCH (21:04)
[2018-02-03] MEDS: buPROPion 100 MG Tab PO SCH (21:04)
[2018-02-04] MEDS: Clotrimazole 1% Crm 30 GM Tube TOP PRN ×2 (00:56→09:25)
[2018-02-04] MEDS: CEPHALEXIN 500 MG PO SCH ×2 (08:04→17:48)
[2018-02-04] MEDS: Metoclopramide 10 MG Tab PO SCH ×2 (08:04→17:48)
[2018-02-04] MEDS: Citalopram 20 MG Tab PO SCH (08:04)
[2018-02-04] MEDS: Albuterol/Ipratropium 3.0-0.5 MG/3 ML Neb Soln NEB SCH ×2 (08:04→19:16)
[2018-02-04] MEDS: Niacin 500 MG Tab PO SCH ×2 (08:05→17:49)
[2018-02-04] MEDS: Fludrocortisone 0.1 MG Tab PO SCH ×2 (08:05→19:16)
[2018-02-04] MEDS: Ibuprofen 600 MG Tab PO SCH ×2 (08:05→17:49)
[2018-02-04] MEDS: Furosemide 20 MG Tab PO SCH (08:05)
[2018-02-04] MEDS: Chlorhexidine Gluconate 0.12% Oral Rinse 15 ML Cup MUCMEM SCH ×2 (08:06→19:16)
[2018-02-04] MEDS: Cyanocobalamin (Vitamin B12) 1,000 MCG Tab PO SCH (08:06)
[2018-02-04] MEDS: Cholecalciferol (Vitamin D3) 25 MCG Tab PO SCH (08:06)
[2018-02-04] MEDS: Omeprazole 20 MG Cap.CR PO SCH (08:06)
[2018-02-04] MEDS: Potassium Chloride 10% 20 MEQ/15 ML Soln 15 ML UD Cup PO SCH ×3 (08:07→19:15)
[2018-02-04] MEDS: Atropine/Diphenoxylate 0.025-2.5 MG Tab PO PRN (13:43)
[2018-02-04] MEDS: buPROPion 100 MG Tab PO SCH (19:15)
[2018-02-04] MEDS: Simvastatin 10 MG Tab PO SCH (19:15)
[2018-02-04] MEDS: LEVOTHYROXINE SODIUM 137 MCG PO SCH (19:16)
[2018-02-05] MEDS: Metoclopramide 10 MG Tab PO SCH ×2 (08:12→17:37)
[2018-02-05] MEDS: Citalopram 20 MG Tab PO SCH (08:12)
[2018-02-05] MEDS: CEPHALEXIN 500 MG PO SCH ×2 (08:12→17:37)
[2018-02-05] MEDS: Niacin 500 MG Tab PO SCH ×2 (08:13→17:37)
[2018-02-05] MEDS: Albuterol/Ipratropium 3.0-0.5 MG/3 ML Neb Soln NEB SCH ×2 (08:13→20:12)
[2018-02-05] MEDS: Fludrocortisone 0.1 MG Tab PO SCH ×2 (08:13→20:13)
[2018-02-05] MEDS: Furosemide 20 MG Tab PO SCH (08:13)
[2018-02-05] MEDS: Ibuprofen 600 MG Tab PO SCH ×2 (08:13→17:37)
[2018-02-05] MEDS: Potassium Chloride 10% 20 MEQ/15 ML Soln 15 ML UD Cup PO SCH ×3 (08:14→20:14)
[2018-02-05] MEDS: Omeprazole 20 MG Cap.CR PO SCH (08:14)
[2018-02-05] MEDS: Cyanocobalamin (Vitamin B12) 1,000 MCG Tab PO SCH (08:15)
[2018-02-05] MEDS: Chlorhexidine Gluconate 0.12% Oral Rinse 15 ML Cup MUCMEM SCH ×2 (08:15→20:14)
[2018-02-05] MEDS: Cholecalciferol (Vitamin D3) 25 MCG Tab PO SCH (08:15)
[2018-02-05] MEDS: Clotrimazole 1% Crm 30 GM Tube TOP PRN (08:16)
[2018-02-05] MEDS: Atropine/Diphenoxylate 0.025-2.5 MG Tab PO PRN (14:03)
[2018-02-05] MEDS: buPROPion 100 MG Tab PO SCH (20:13)
[2018-02-05] MEDS: Simvastatin 10 MG Tab PO SCH (20:13)
[2018-02-05] MEDS: LEVOTHYROXINE SODIUM 137 MCG PO SCH (20:13)
[2018-02-06] MEDS: Clotrimazole 1% Crm 30 GM Tube TOP PRN ×3 (00:16→19:58)
[2018-02-06] MEDS: Metoclopramide 10 MG Tab PO SCH ×2 (07:40→17:45)
[2018-02-06] MEDS: Furosemide 20 MG Tab PO SCH (07:41)
[2018-02-06] MEDS: Citalopram 20 MG Tab PO SCH (07:41)
[2018-02-06] MEDS: Albuterol/Ipratropium 3.0-0.5 MG/3 ML Neb Soln NEB SCH ×2 (07:41→19:56)
[2018-02-06] MEDS: Fludrocortisone 0.1 MG Tab PO SCH ×2 (07:41→19:56)
[2018-02-06] MEDS: Ibuprofen 600 MG Tab PO SCH ×2 (07:41→17:45)
[2018-02-06] MEDS: CEPHALEXIN 500 MG PO SCH ×2 (07:41→17:45)
[2018-02-06] MEDS: Niacin 500 MG Tab PO SCH ×2 (07:42→17:46)
[2018-02-06] MEDS: Potassium Chloride 10% 20 MEQ/15 ML Soln 15 ML UD Cup PO SCH ×3 (07:42→19:57)
[2018-02-06] MEDS: Omeprazole 20 MG Cap.CR PO SCH (07:42)
[2018-02-06] MEDS: Cyanocobalamin (Vitamin B12) 1,000 MCG Tab PO SCH (07:43)
[2018-02-06] MEDS: Cholecalciferol (Vitamin D3) 25 MCG Tab PO SCH (07:43)
[2018-02-06] MEDS: Chlorhexidine Gluconate 0.12% Oral Rinse 15 ML Cup MUCMEM SCH ×2 (09:24→19:56)
[2018-02-06] MEDS: Atropine/Diphenoxylate 0.025-2.5 MG Tab PO PRN (11:20)
[2018-02-06] MEDS: Calcium Carbonate 750 MG Tab.Chew PO PRN (14:57)
[2018-02-06] MEDS: LEVOTHYROXINE SODIUM 137 MCG PO SCH (19:56)
[2018-02-06] MEDS: Simvastatin 10 MG Tab PO SCH (19:57)
[2018-02-06] MEDS: buPROPion 100 MG Tab PO SCH (19:57)
[2018-02-07] MEDS: Citalopram 20 MG Tab PO SCH (07:20)
[2018-02-07] MEDS: Metoclopramide 10 MG Tab PO SCH ×2 (07:20→17:28)
[2018-02-07] MEDS: Fludrocortisone 0.1 MG Tab PO SCH ×2 (07:21→19:23)
[2018-02-07] MEDS: Ibuprofen 600 MG Tab PO SCH ×2 (07:21→17:28)
[2018-02-07] MEDS: Albuterol/Ipratropium 3.0-0.5 MG/3 ML Neb Soln NEB SCH ×2 (07:21→19:24)
[2018-02-07] MEDS: Furosemide 20 MG Tab PO SCH (07:21)
[2018-02-07] MEDS: CEPHALEXIN 500 MG PO SCH ×2 (07:21→17:28)
[2018-02-07] MEDS: Niacin 500 MG Tab PO SCH ×2 (07:22→17:34)
[2018-02-07] MEDS: Omeprazole 20 MG Cap.CR PO SCH (07:22)
[2018-02-07] MEDS: Potassium Chloride 10% 20 MEQ/15 ML Soln 15 ML UD Cup PO SCH ×3 (07:22→19:24)
[2018-02-07] MEDS: Cyanocobalamin (Vitamin B12) 1,000 MCG Tab PO SCH (07:23)
[2018-02-07] MEDS: Cholecalciferol (Vitamin D3) 25 MCG Tab PO SCH (07:24)
[2018-02-07] MEDS: Chlorhexidine Gluconate 0.12% Oral Rinse 15 ML Cup MUCMEM SCH ×2 (09:14→19:24)
[2018-02-07] MEDS: LEVOTHYROXINE SODIUM 137 MCG PO SCH (19:23)
[2018-02-07] MEDS: buPROPion 100 MG Tab PO SCH (19:24)
[2018-02-07] MEDS: Simvastatin 10 MG Tab PO SCH (19:24)
[2018-02-08] MEDS: Metoclopramide 10 MG Tab PO SCH ×2 (08:08→18:00)
[2018-02-08] MEDS: Omeprazole 20 MG Cap.CR PO SCH (08:08)
[2018-02-08] MEDS: Ibuprofen 600 MG Tab PO SCH ×2 (08:09→17:59)
[2018-02-08] MEDS: Citalopram 20 MG Tab PO SCH (08:10)
[2018-02-08] MEDS: Furosemide 20 MG Tab PO SCH (08:10)
[2018-02-08] MEDS: Fludrocortisone 0.1 MG Tab PO SCH ×2 (08:10→19:16)
[2018-02-08] MEDS: CEPHALEXIN 500 MG PO SCH ×2 (08:10→18:00)
[2018-02-08] MEDS: Albuterol/Ipratropium 3.0-0.5 MG/3 ML Neb Soln NEB SCH ×2 (08:14→19:16)
[2018-02-08] MEDS: Niacin 500 MG Tab PO SCH ×2 (08:14→18:01)
[2018-02-08] MEDS: Cyanocobalamin (Vitamin B12) 1,000 MCG Tab PO SCH (08:15)
[2018-02-08] MEDS: Cholecalciferol (Vitamin D3) 25 MCG Tab PO SCH (08:15)
[2018-02-08] MEDS: Chlorhexidine Gluconate 0.12% Oral Rinse 15 ML Cup MUCMEM SCH ×2 (08:16→19:16)
[2018-02-08] MEDS: Potassium Chloride 10% 20 MEQ/15 ML Soln 15 ML UD Cup PO SCH ×3 (08:16→19:15)
[2018-02-08] MEDS: LEVOTHYROXINE SODIUM 137 MCG PO SCH (19:15)
[2018-02-08] MEDS: buPROPion 100 MG Tab PO SCH (19:15)
[2018-02-08] MEDS: Simvastatin 10 MG Tab PO SCH (19:15)
[2018-02-09] MEDS: Clotrimazole 1% Crm 30 GM Tube TOP PRN ×2 (07:45→20:02)
[2018-02-09] MEDS: Metoclopramide 10 MG Tab PO SCH ×2 (08:46→18:09)
[2018-02-09] MEDS: Citalopram 20 MG Tab PO SCH (08:46)
[2018-02-09] MEDS: Fludrocortisone 0.1 MG Tab PO SCH ×2 (08:47→20:04)
[2018-02-09] MEDS: Furosemide 20 MG Tab PO SCH (08:47)
[2018-02-09] MEDS: CEPHALEXIN 500 MG PO SCH ×2 (08:47→18:09)
[2018-02-09] MEDS: Albuterol/Ipratropium 3.0-0.5 MG/3 ML Neb Soln NEB SCH ×2 (08:47→20:04)
[2018-02-09] MEDS: Ibuprofen 600 MG Tab PO SCH ×2 (08:47→18:10)
[2018-02-09] MEDS: Omeprazole 20 MG Cap.CR PO SCH (08:48)
[2018-02-09] MEDS: Potassium Chloride 10% 20 MEQ/15 ML Soln 15 ML UD Cup PO SCH ×3 (08:49→20:05)
[2018-02-09] MEDS: Niacin 500 MG Tab PO SCH ×2 (08:49→18:10)
[2018-02-09] MEDS: Cyanocobalamin (Vitamin B12) 1,000 MCG Tab PO SCH (08:50)
[2018-02-09] MEDS: Cholecalciferol (Vitamin D3) 25 MCG Tab PO SCH (08:50)
[2018-02-09] MEDS: Chlorhexidine Gluconate 0.12% Oral Rinse 15 ML Cup MUCMEM SCH ×2 (08:51→20:04)
[2018-02-09] MEDS: traMADol 50 MG Tab PO PRN (08:52)
[2018-02-09] MEDS: Atropine/Diphenoxylate 0.025-2.5 MG Tab PO PRN (09:50)
[2018-02-09] MEDS: Acetaminophen 325 MG Tab PO PRN (18:08)
[2018-02-09] MEDS: LEVOTHYROXINE SODIUM 137 MCG PO SCH (20:04)
[2018-02-09] MEDS: buPROPion 100 MG Tab PO SCH (20:05)
[2018-02-09] MEDS: Simvastatin 10 MG Tab PO SCH (20:05)
[2018-02-10] MEDS: Fludrocortisone 0.1 MG Tab PO SCH ×2 (08:07→19:22)
[2018-02-10] MEDS: CEPHALEXIN 500 MG PO SCH ×2 (08:07→17:18)
[2018-02-10] MEDS: Albuterol/Ipratropium 3.0-0.5 MG/3 ML Neb Soln NEB SCH ×2 (08:07→19:23)
[2018-02-10] MEDS: Metoclopramide 10 MG Tab PO SCH ×2 (08:07→17:18)
[2018-02-10] MEDS: Furosemide 20 MG Tab PO SCH (08:07)
[2018-02-10] MEDS: Citalopram 20 MG Tab PO SCH (08:07)
[2018-02-10] MEDS: Chlorhexidine Gluconate 0.12% Oral Rinse 15 ML Cup MUCMEM SCH ×2 (08:07→19:23)
[2018-02-10] MEDS: Ibuprofen 600 MG Tab PO SCH ×2 (08:08→17:18)
[2018-02-10] MEDS: Omeprazole 20 MG Cap.CR PO SCH (08:09)
[2018-02-10] MEDS: Potassium Chloride 10% 20 MEQ/15 ML Soln 15 ML UD Cup PO SCH ×3 (08:09→19:24)
[2018-02-10] MEDS: Niacin 500 MG Tab PO SCH ×2 (08:09→17:18)
[2018-02-10] MEDS: Cholecalciferol (Vitamin D3) 25 MCG Tab PO SCH (08:10)
[2018-02-10] MEDS: Cyanocobalamin (Vitamin B12) 1,000 MCG Tab PO SCH (08:10)
[2018-02-10] MEDS: Acetaminophen 325 MG Tab PO PRN (08:10)
[2018-02-10] MEDS: traMADol 50 MG Tab PO PRN (08:12)
[2018-02-10] MEDS: LEVOTHYROXINE SODIUM 137 MCG PO SCH (19:22)
[2018-02-10] MEDS: Simvastatin 10 MG Tab PO SCH (19:23)
[2018-02-10] MEDS: buPROPion 100 MG Tab PO SCH (19:23)
[2018-02-11] MEDS: Citalopram 20 MG Tab PO SCH (07:34)
[2018-02-11] MEDS: Metoclopramide 10 MG Tab PO SCH ×2 (07:34→17:44)
[2018-02-11] MEDS: Albuterol/Ipratropium 3.0-0.5 MG/3 ML Neb Soln NEB SCH ×2 (07:34→19:51)
[2018-02-11] MEDS: Fludrocortisone 0.1 MG Tab PO SCH ×2 (07:34→19:56)
[2018-02-11] MEDS: CEPHALEXIN 500 MG PO SCH ×2 (07:34→17:44)
[2018-02-11] MEDS: Ibuprofen 600 MG Tab PO SCH ×2 (07:35→17:45)
[2018-02-11] MEDS: Omeprazole 20 MG Cap.CR PO SCH (07:35)
[2018-02-11] MEDS: Niacin 500 MG Tab PO SCH ×2 (07:35→17:45)
[2018-02-11] MEDS: Furosemide 20 MG Tab PO SCH (07:35)
[2018-02-11] MEDS: Cyanocobalamin (Vitamin B12) 1,000 MCG Tab PO SCH (07:35)
[2018-02-11] MEDS: Cholecalciferol (Vitamin D3) 25 MCG Tab PO SCH (07:36)
[2018-02-11] MEDS: Potassium Chloride 10% 20 MEQ/15 ML Soln 15 ML UD Cup PO SCH ×3 (07:36→19:56)
[2018-02-11] MEDS: Chlorhexidine Gluconate 0.12% Oral Rinse 15 ML Cup MUCMEM SCH ×2 (08:12→19:56)
[2018-02-11] MEDS: traMADol 50 MG Tab PO PRN (19:51)
[2018-02-11] MEDS: Acetaminophen 325 MG Tab PO PRN (19:53)
[2018-02-11] MEDS: buPROPion 100 MG Tab PO SCH (19:55)
[2018-02-11] MEDS: LEVOTHYROXINE SODIUM 137 MCG PO SCH (19:56)
[2018-02-11] MEDS: Simvastatin 10 MG Tab PO SCH (19:57)
[2018-02-12] MEDS: Citalopram 20 MG Tab PO SCH (08:30)
[2018-02-12] MEDS: CEPHALEXIN 500 MG PO SCH ×2 (08:30→18:17)
[2018-02-12] MEDS: Furosemide 20 MG Tab PO SCH (08:31)
[2018-02-12] MEDS: Omeprazole 20 MG Cap.CR PO SCH (08:31)
[2018-02-12] MEDS: Metoclopramide 10 MG Tab PO SCH ×2 (08:31→18:17)
[2018-02-12] MEDS: Ibuprofen 600 MG Tab PO SCH ×2 (08:31→18:17)
[2018-02-12] MEDS: Fludrocortisone 0.1 MG Tab PO SCH ×2 (08:31→19:43)
[2018-02-12] MEDS: Niacin 500 MG Tab PO SCH ×2 (08:32→18:18)
[2018-02-12] MEDS: Potassium Chloride 10% 20 MEQ/15 ML Soln 15 ML UD Cup PO SCH ×3 (08:33→19:44)
[2018-02-12] MEDS: Cholecalciferol (Vitamin D3) 25 MCG Tab PO SCH (08:33)
[2018-02-12] MEDS: Cyanocobalamin (Vitamin B12) 1,000 MCG Tab PO SCH (08:34)
[2018-02-12] MEDS: Albuterol/Ipratropium 3.0-0.5 MG/3 ML Neb Soln NEB SCH ×2 (08:34→19:43)
[2018-02-12] MEDS: Chlorhexidine Gluconate 0.12% Oral Rinse 15 ML Cup MUCMEM SCH ×2 (08:34→19:44)
--- NOTE | 2018-02-12 09:54 | PCM.SN ---
- Free Text/Narrative Note: Recent diarrhea with positive stool specimen for C. difficile. Initiate isolation precautions and 2 week course of Flagyl therapy with subsequent follow up stool specimen to confirm successful treatment. Subsequent oral Vancomycin therapy, if infection still persists. Continue oral Keflex uroprophylaxis therapy for now. Note consultation later today with oral surgeon in [place] for possible future complete teeth extraction with that office to be notified today by our nurses concerning new C. difficile infection. The oral surgeon will also be asked to give us further information concerning logistics of possible preop H&P either thru their office of by our facility.
[2018-02-12] MEDS: traMADol 50 MG Tab PO PRN (19:41)
[2018-02-12] MEDS: Acetaminophen 325 MG Tab PO PRN (19:42)
[2018-02-12] MEDS: LEVOTHYROXINE SODIUM 137 MCG PO SCH (19:44)
[2018-02-12] MEDS: buPROPion 100 MG Tab PO SCH (19:46)
[2018-02-12] MEDS: Simvastatin 10 MG Tab PO SCH (19:47)
[2018-02-12] MEDS: metroNIDAZOLE 500 MG Tab PO SCH (22:38)
[2018-02-13] MEDS: metroNIDAZOLE 500 MG Tab PO SCH ×3 (05:00→22:32)
[2018-02-13] MEDS: CEPHALEXIN 500 MG PO SCH ×2 (07:40→17:33)
[2018-02-13] MEDS: Metoclopramide 10 MG Tab PO SCH ×2 (07:40→17:33)
[2018-02-13] MEDS: Citalopram 20 MG Tab PO SCH (07:40)
[2018-02-13] MEDS: Albuterol/Ipratropium 3.0-0.5 MG/3 ML Neb Soln NEB SCH ×2 (07:41→19:38)
[2018-02-13] MEDS: Furosemide 20 MG Tab PO SCH (07:41)
[2018-02-13] MEDS: Ibuprofen 600 MG Tab PO SCH ×2 (07:41→17:33)
[2018-02-13] MEDS: Fludrocortisone 0.1 MG Tab PO SCH ×2 (07:41→19:38)
[2018-02-13] MEDS: Cyanocobalamin (Vitamin B12) 1,000 MCG Tab PO SCH (07:42)
[2018-02-13] MEDS: Niacin 500 MG Tab PO SCH ×2 (07:42→17:34)
[2018-02-13] MEDS: Cholecalciferol (Vitamin D3) 25 MCG Tab PO SCH (07:42)
[2018-02-13] MEDS: Omeprazole 20 MG Cap.CR PO SCH (07:42)
[2018-02-13] MEDS: Potassium Chloride 10% 20 MEQ/15 ML Soln 15 ML UD Cup PO SCH ×3 (07:43→19:38)
[2018-02-13] MEDS: Clotrimazole 1% Crm 30 GM Tube TOP PRN (08:00)
[2018-02-13] MEDS: Chlorhexidine Gluconate 0.12% Oral Rinse 15 ML Cup MUCMEM SCH ×2 (08:55→19:38)
[2018-02-13] MEDS: LEVOTHYROXINE SODIUM 137 MCG PO SCH (19:38)
[2018-02-13] MEDS: buPROPion 100 MG Tab PO SCH (19:38)
[2018-02-13] MEDS: Acetaminophen 325 MG Tab PO PRN (19:40)
[2018-02-13] MEDS: traMADol 50 MG Tab PO PRN (19:44)
[2018-02-13] MEDS: Simvastatin 10 MG Tab PO SCH (19:53)
[2018-02-14] MEDS: metroNIDAZOLE 500 MG Tab PO SCH ×3 (07:45→22:42)
[2018-02-14] MEDS: CEPHALEXIN 500 MG PO SCH ×2 (07:45→17:40)
[2018-02-14] MEDS: Metoclopramide 10 MG Tab PO SCH ×2 (07:45→17:40)
[2018-02-14] MEDS: Citalopram 20 MG Tab PO SCH (07:45)
[2018-02-14] MEDS: Omeprazole 20 MG Cap.CR PO SCH (07:46)
[2018-02-14] MEDS: Ibuprofen 600 MG Tab PO SCH ×2 (07:46→17:40)
[2018-02-14] MEDS: Fludrocortisone 0.1 MG Tab PO SCH ×2 (07:46→19:52)
[2018-02-14] MEDS: Niacin 500 MG Tab PO SCH ×2 (07:46→17:41)
[2018-02-14] MEDS: Furosemide 20 MG Tab PO SCH (07:46)
[2018-02-14] MEDS: Albuterol/Ipratropium 3.0-0.5 MG/3 ML Neb Soln NEB SCH ×2 (07:46→19:51)
[2018-02-14] MEDS: Cyanocobalamin (Vitamin B12) 1,000 MCG Tab PO SCH (07:47)
[2018-02-14] MEDS: Potassium Chloride 10% 20 MEQ/15 ML Soln 15 ML UD Cup PO SCH ×3 (07:47→19:52)
[2018-02-14] MEDS: Cholecalciferol (Vitamin D3) 25 MCG Tab PO SCH (07:47)
[2018-02-14] MEDS: Chlorhexidine Gluconate 0.12% Oral Rinse 15 ML Cup MUCMEM SCH ×2 (08:20→19:52)
[2018-02-14] MEDS: LEVOTHYROXINE SODIUM 137 MCG PO SCH (19:52)
[2018-02-14] MEDS: buPROPion 100 MG Tab PO SCH (19:53)
[2018-02-14] MEDS: Simvastatin 10 MG Tab PO SCH (19:53)
[2018-02-14] MEDS: Clotrimazole 1% Crm 30 GM Tube TOP PRN (19:53)
[2018-02-14] MEDS: Acetaminophen 325 MG Tab PO PRN (20:06)
[2018-02-14] MEDS: traMADol 50 MG Tab PO PRN (20:07)
[2018-02-15] MEDS: Clotrimazole 1% Crm 30 GM Tube TOP PRN ×2 (08:00→19:42)
[2018-02-15] MEDS: metroNIDAZOLE 500 MG Tab PO SCH ×3 (08:09→22:56)
[2018-02-15] MEDS: CEPHALEXIN 500 MG PO SCH ×2 (08:10→17:41)
[2018-02-15] MEDS: Citalopram 20 MG Tab PO SCH (08:10)
[2018-02-15] MEDS: Furosemide 20 MG Tab PO SCH (08:10)
[2018-02-15] MEDS: Albuterol/Ipratropium 3.0-0.5 MG/3 ML Neb Soln NEB SCH ×2 (08:10→19:39)
[2018-02-15] MEDS: Metoclopramide 10 MG Tab PO SCH ×2 (08:10→17:41)
[2018-02-15] MEDS: Ibuprofen 600 MG Tab PO SCH ×2 (08:10→17:41)
[2018-02-15] MEDS: Fludrocortisone 0.1 MG Tab PO SCH ×2 (08:10→19:39)
[2018-02-15] MEDS: Niacin 500 MG Tab PO SCH ×2 (08:11→17:41)
[2018-02-15] MEDS: Omeprazole 20 MG Cap.CR PO SCH (08:11)
[2018-02-15] MEDS: Potassium Chloride 10% 20 MEQ/15 ML Soln 15 ML UD Cup PO SCH ×3 (08:11→19:40)
[2018-02-15] MEDS: Cyanocobalamin (Vitamin B12) 1,000 MCG Tab PO SCH (08:12)
[2018-02-15] MEDS: Chlorhexidine Gluconate 0.12% Oral Rinse 15 ML Cup MUCMEM SCH ×2 (08:12→19:40)
[2018-02-15] MEDS: Cholecalciferol (Vitamin D3) 25 MCG Tab PO SCH (08:12)
[2018-02-15] MEDS: Acetaminophen 325 MG Tab PO PRN (12:40)
[2018-02-15] MEDS: traMADol 50 MG Tab PO PRN (12:41)
[2018-02-15] MEDS: LEVOTHYROXINE SODIUM 137 MCG PO SCH (19:39)
[2018-02-15] MEDS: Simvastatin 10 MG Tab PO SCH (19:40)
[2018-02-15] MEDS: buPROPion 100 MG Tab PO SCH (19:40)
[2018-02-16] MEDS: metroNIDAZOLE 500 MG Tab PO SCH ×3 (08:13→22:29)
[2018-02-16] MEDS: Citalopram 20 MG Tab PO SCH (08:14)
[2018-02-16] MEDS: Albuterol/Ipratropium 3.0-0.5 MG/3 ML Neb Soln NEB SCH ×2 (08:14→19:37)
[2018-02-16] MEDS: Furosemide 20 MG Tab PO SCH (08:14)
[2018-02-16] MEDS: Ibuprofen 600 MG Tab PO SCH ×2 (08:14→17:39)
[2018-02-16] MEDS: Metoclopramide 10 MG Tab PO SCH ×2 (08:14→17:38)
[2018-02-16] MEDS: Fludrocortisone 0.1 MG Tab PO SCH ×2 (08:14→19:37)
[2018-02-16] MEDS: CEPHALEXIN 500 MG PO SCH ×2 (08:14→17:38)
[2018-02-16] MEDS: Omeprazole 20 MG Cap.CR PO SCH (08:15)
[2018-02-16] MEDS: Potassium Chloride 10% 20 MEQ/15 ML Soln 15 ML UD Cup PO SCH ×3 (08:15→19:38)
[2018-02-16] MEDS: Niacin 500 MG Tab PO SCH ×2 (08:15→17:39)
[2018-02-16] MEDS: Cholecalciferol (Vitamin D3) 25 MCG Tab PO SCH (08:16)
[2018-02-16] MEDS: Cyanocobalamin (Vitamin B12) 1,000 MCG Tab PO SCH (08:16)
[2018-02-16] MEDS: Chlorhexidine Gluconate 0.12% Oral Rinse 15 ML Cup MUCMEM SCH ×2 (08:16→19:38)
[2018-02-16] MEDS: Acetaminophen 325 MG Tab PO PRN (13:53)
[2018-02-16] MEDS: traMADol 50 MG Tab PO PRN (13:54)
[2018-02-16] MEDS: Lactobacillus Rhamnosus GG (Probiotic) Cap PO SCH (17:38)
[2018-02-16] MEDS: LEVOTHYROXINE SODIUM 137 MCG PO SCH (19:38)
[2018-02-16] MEDS: buPROPion 100 MG Tab PO SCH (19:38)
[2018-02-16] MEDS: Simvastatin 10 MG Tab PO SCH (19:38)
[2018-02-17] MEDS: metroNIDAZOLE 500 MG Tab PO SCH ×3 (09:37→21:31)
[2018-02-17] MEDS: Citalopram 20 MG Tab PO SCH (09:37)
[2018-02-17] MEDS: Lactobacillus Rhamnosus GG (Probiotic) Cap PO SCH ×2 (09:37→17:25)
[2018-02-17] MEDS: CEPHALEXIN 500 MG PO SCH ×2 (09:37→17:25)
[2018-02-17] MEDS: Metoclopramide 10 MG Tab PO SCH ×2 (09:37→17:25)
[2018-02-17] MEDS: Niacin 500 MG Tab PO SCH ×2 (09:38→17:26)
[2018-02-17] MEDS: Albuterol/Ipratropium 3.0-0.5 MG/3 ML Neb Soln NEB SCH ×2 (09:38→19:17)
[2018-02-17] MEDS: Furosemide 20 MG Tab PO SCH (09:38)
[2018-02-17] MEDS: Fludrocortisone 0.1 MG Tab PO SCH ×2 (09:38→19:17)
[2018-02-17] MEDS: Potassium Chloride 10% 20 MEQ/15 ML Soln 15 ML UD Cup PO SCH ×3 (09:38→19:19)
[2018-02-17] MEDS: Ibuprofen 600 MG Tab PO SCH ×2 (09:38→17:25)
[2018-02-17] MEDS: Omeprazole 20 MG Cap.CR PO SCH (09:38)
[2018-02-17] MEDS: Cyanocobalamin (Vitamin B12) 1,000 MCG Tab PO SCH (09:39)
[2018-02-17] MEDS: Cholecalciferol (Vitamin D3) 25 MCG Tab PO SCH (09:40)
[2018-02-17] MEDS: Chlorhexidine Gluconate 0.12% Oral Rinse 15 ML Cup MUCMEM SCH ×2 (09:40→19:18)
[2018-02-17] MEDS: Simvastatin 10 MG Tab PO SCH (19:17)
[2018-02-17] MEDS: buPROPion 100 MG Tab PO SCH (19:17)
[2018-02-17] MEDS: LEVOTHYROXINE SODIUM 137 MCG PO SCH (19:17)
[2018-02-18] MEDS: Metoclopramide 10 MG Tab PO SCH ×2 (07:40→17:13)
[2018-02-18] MEDS: CEPHALEXIN 500 MG PO SCH ×2 (07:40→17:13)
[2018-02-18] MEDS: Citalopram 20 MG Tab PO SCH (07:40)
[2018-02-18] MEDS: metroNIDAZOLE 500 MG Tab PO SCH ×3 (07:40→22:00)
[2018-02-18] MEDS: Lactobacillus Rhamnosus GG (Probiotic) Cap PO SCH ×2 (07:41→17:14)
[2018-02-18] MEDS: Albuterol/Ipratropium 3.0-0.5 MG/3 ML Neb Soln NEB SCH ×2 (07:41→19:33)
[2018-02-18] MEDS: Ibuprofen 600 MG Tab PO SCH ×2 (07:41→17:14)
[2018-02-18] MEDS: Fludrocortisone 0.1 MG Tab PO SCH ×2 (07:41→19:36)
[2018-02-18] MEDS: Furosemide 20 MG Tab PO SCH (07:41)
[2018-02-18] MEDS: Omeprazole 20 MG Cap.CR PO SCH (07:42)
[2018-02-18] MEDS: Niacin 500 MG Tab PO SCH ×2 (07:42→17:15)
[2018-02-18] MEDS: Cyanocobalamin (Vitamin B12) 1,000 MCG Tab PO SCH (07:43)
[2018-02-18] MEDS: Potassium Chloride 10% 20 MEQ/15 ML Soln 15 ML UD Cup PO SCH ×3 (07:43→19:35)
[2018-02-18] MEDS: Cholecalciferol (Vitamin D3) 25 MCG Tab PO SCH (07:44)
[2018-02-18] MEDS: Clotrimazole 1% Crm 30 GM Tube TOP PRN ×2 (07:45→19:35)
[2018-02-18] MEDS: Chlorhexidine Gluconate 0.12% Oral Rinse 15 ML Cup MUCMEM SCH ×2 (08:07→19:36)
[2018-02-18] MEDS: LEVOTHYROXINE SODIUM 137 MCG PO SCH (19:33)
[2018-02-18] MEDS: Simvastatin 10 MG Tab PO SCH (19:34)
[2018-02-18] MEDS: buPROPion 100 MG Tab PO SCH (19:34)
[2018-02-19] MEDS: Clotrimazole 1% Crm 30 GM Tube TOP PRN ×2 (08:00→19:44)
[2018-02-19] MEDS: CEPHALEXIN 500 MG PO SCH ×2 (08:09→17:50)
[2018-02-19] MEDS: Citalopram 20 MG Tab PO SCH (08:09)
[2018-02-19] MEDS: metroNIDAZOLE 500 MG Tab PO SCH ×3 (08:09→21:32)
[2018-02-19] MEDS: Metoclopramide 10 MG Tab PO SCH ×2 (08:09→17:49)
[2018-02-19] MEDS: Albuterol/Ipratropium 3.0-0.5 MG/3 ML Neb Soln NEB SCH ×2 (08:11→19:08)
[2018-02-19] MEDS: Lactobacillus Rhamnosus GG (Probiotic) Cap PO SCH ×2 (08:11→17:50)
[2018-02-19] MEDS: Furosemide 20 MG Tab PO SCH (08:12)
[2018-02-19] MEDS: Fludrocortisone 0.1 MG Tab PO SCH ×2 (08:12→19:08)
[2018-02-19] MEDS: Ibuprofen 600 MG Tab PO SCH ×2 (08:12→17:51)
[2018-02-19] MEDS: Niacin 500 MG Tab PO SCH ×2 (08:13→17:51)
[2018-02-19] MEDS: Omeprazole 20 MG Cap.CR PO SCH (08:13)
[2018-02-19] MEDS: Potassium Chloride 10% 20 MEQ/15 ML Soln 15 ML UD Cup PO SCH ×3 (08:14→19:07)
[2018-02-19] MEDS: Cholecalciferol (Vitamin D3) 25 MCG Tab PO SCH (08:14)
[2018-02-19] MEDS: Cyanocobalamin (Vitamin B12) 1,000 MCG Tab PO SCH (08:14)
[2018-02-19] MEDS: Chlorhexidine Gluconate 0.12% Oral Rinse 15 ML Cup MUCMEM SCH ×2 (08:15→19:08)
[2018-02-19] MEDS: LEVOTHYROXINE SODIUM 137 MCG PO SCH (19:08)
[2018-02-19] MEDS: Simvastatin 10 MG Tab PO SCH (19:08)
[2018-02-19] MEDS: buPROPion 100 MG Tab PO SCH (19:08)
[2018-02-20] MEDS: metroNIDAZOLE 500 MG Tab PO SCH ×3 (05:29→21:57)
[2018-02-20] MEDS: Clotrimazole 1% Crm 30 GM Tube TOP PRN (08:00)
[2018-02-20] MEDS: Metoclopramide 10 MG Tab PO SCH ×2 (08:05→17:28)
[2018-02-20] MEDS: Citalopram 20 MG Tab PO SCH (08:05)
[2018-02-20] MEDS: Albuterol/Ipratropium 3.0-0.5 MG/3 ML Neb Soln NEB SCH ×2 (08:06→19:30)
[2018-02-20] MEDS: Furosemide 20 MG Tab PO SCH (08:06)
[2018-02-20] MEDS: CEPHALEXIN 500 MG PO SCH ×2 (08:06→17:28)
[2018-02-20] MEDS: Fludrocortisone 0.1 MG Tab PO SCH ×2 (08:06→19:32)
[2018-02-20] MEDS: Lactobacillus Rhamnosus GG (Probiotic) Cap PO SCH ×2 (08:06→17:29)
[2018-02-20] MEDS: Omeprazole 20 MG Cap.CR PO SCH (08:07)
[2018-02-20] MEDS: Ibuprofen 600 MG Tab PO SCH ×2 (08:07→17:29)
[2018-02-20] MEDS: Niacin 500 MG Tab PO SCH ×2 (08:07→17:29)
[2018-02-20] MEDS: Cyanocobalamin (Vitamin B12) 1,000 MCG Tab PO SCH (08:08)
[2018-02-20] MEDS: Chlorhexidine Gluconate 0.12% Oral Rinse 15 ML Cup MUCMEM SCH ×2 (08:08→19:33)
[2018-02-20] MEDS: Cholecalciferol (Vitamin D3) 25 MCG Tab PO SCH (08:08)
[2018-02-20] MEDS: Potassium Chloride 10% 20 MEQ/15 ML Soln 15 ML UD Cup PO SCH ×3 (08:09→19:33)
[2018-02-20] MEDS: LEVOTHYROXINE SODIUM 137 MCG PO SCH (19:33)
[2018-02-20] MEDS: Simvastatin 10 MG Tab PO SCH (19:36)
[2018-02-20] MEDS: buPROPion 100 MG Tab PO SCH (19:36)
[2018-02-21] MEDS: metroNIDAZOLE 500 MG Tab PO SCH ×3 (05:53→21:03)
[2018-02-21] MEDS: Clotrimazole 1% Crm 30 GM Tube TOP PRN ×2 (05:53→19:30)
[2018-02-21] MEDS: Metoclopramide 10 MG Tab PO SCH ×2 (08:07→17:16)
[2018-02-21] MEDS: Citalopram 20 MG Tab PO SCH (08:07)
[2018-02-21] MEDS: CEPHALEXIN 500 MG PO SCH ×2 (08:07→17:16)
[2018-02-21] MEDS: Furosemide 20 MG Tab PO SCH (08:08)
[2018-02-21] MEDS: Albuterol/Ipratropium 3.0-0.5 MG/3 ML Neb Soln NEB SCH ×2 (08:08→19:39)
[2018-02-21] MEDS: Lactobacillus Rhamnosus GG (Probiotic) Cap PO SCH ×2 (08:08→17:16)
[2018-02-21] MEDS: Fludrocortisone 0.1 MG Tab PO SCH ×2 (08:08→19:39)
[2018-02-21] MEDS: Niacin 500 MG Tab PO SCH ×2 (08:09→17:17)
[2018-02-21] MEDS: Omeprazole 20 MG Cap.CR PO SCH (08:09)
[2018-02-21] MEDS: Potassium Chloride 10% 20 MEQ/15 ML Soln 15 ML UD Cup PO SCH ×3 (08:09→19:40)
[2018-02-21] MEDS: Ibuprofen 600 MG Tab PO SCH ×2 (08:09→17:17)
[2018-02-21] MEDS: Cholecalciferol (Vitamin D3) 25 MCG Tab PO SCH (08:10)
[2018-02-21] MEDS: Chlorhexidine Gluconate 0.12% Oral Rinse 15 ML Cup MUCMEM SCH ×2 (08:11→20:57)
[2018-02-21] MEDS: Cyanocobalamin (Vitamin B12) 1,000 MCG Tab PO SCH (08:11)
[2018-02-21] MEDS: LEVOTHYROXINE SODIUM 137 MCG PO SCH (19:39)
[2018-02-21] MEDS: Simvastatin 10 MG Tab PO SCH (19:41)
[2018-02-21] MEDS: buPROPion 100 MG Tab PO SCH (19:41)
[2018-02-22] MEDS: metroNIDAZOLE 500 MG Tab PO SCH ×3 (05:40→22:02)
[2018-02-22] MEDS: Albuterol/Ipratropium 3.0-0.5 MG/3 ML Neb Soln NEB SCH ×2 (08:17→19:25)
[2018-02-22] MEDS: CEPHALEXIN 500 MG PO SCH ×2 (08:17→17:16)
[2018-02-22] MEDS: Metoclopramide 10 MG Tab PO SCH ×2 (08:17→17:16)
[2018-02-22] MEDS: Fludrocortisone 0.1 MG Tab PO SCH ×2 (08:17→19:25)
[2018-02-22] MEDS: Lactobacillus Rhamnosus GG (Probiotic) Cap PO SCH ×2 (08:17→17:16)
[2018-02-22] MEDS: Citalopram 20 MG Tab PO SCH (08:17)
[2018-02-22] MEDS: Furosemide 20 MG Tab PO SCH (08:18)
[2018-02-22] MEDS: Ibuprofen 600 MG Tab PO SCH ×2 (08:18→17:17)
[2018-02-22] MEDS: Niacin 500 MG Tab PO SCH ×2 (08:19→17:17)
[2018-02-22] MEDS: Omeprazole 20 MG Cap.CR PO SCH (08:19)
[2018-02-22] MEDS: Potassium Chloride 10% 20 MEQ/15 ML Soln 15 ML UD Cup PO SCH ×3 (08:19→19:26)
[2018-02-22] MEDS: Cyanocobalamin (Vitamin B12) 1,000 MCG Tab PO SCH (08:19)
[2018-02-22] MEDS: Cholecalciferol (Vitamin D3) 25 MCG Tab PO SCH (08:20)
[2018-02-22] MEDS: Chlorhexidine Gluconate 0.12% Oral Rinse 15 ML Cup MUCMEM SCH ×2 (08:20→19:26)
[2018-02-22] MEDS: traMADol 50 MG Tab PO PRN (19:22)
[2018-02-22] MEDS: Acetaminophen 325 MG Tab PO PRN (19:23)
[2018-02-22] MEDS: buPROPion 100 MG Tab PO SCH (19:25)
[2018-02-22] MEDS: LEVOTHYROXINE SODIUM 137 MCG PO SCH (19:25)
[2018-02-22] MEDS: Simvastatin 10 MG Tab PO SCH (19:26)
[2018-02-22] MEDS: Clotrimazole 1% Crm 30 GM Tube TOP PRN (19:45)
[2018-02-23] MEDS: metroNIDAZOLE 500 MG Tab PO SCH ×3 (05:05→21:14)
[2018-02-23] MEDS: Lactobacillus Rhamnosus GG (Probiotic) Cap PO SCH ×2 (07:50→17:19)
[2018-02-23] MEDS: CEPHALEXIN 500 MG PO SCH ×2 (07:50→17:19)
[2018-02-23] MEDS: Metoclopramide 10 MG Tab PO SCH ×2 (07:50→17:18)
[2018-02-23] MEDS: Citalopram 20 MG Tab PO SCH (07:50)
[2018-02-23] MEDS: Fludrocortisone 0.1 MG Tab PO SCH ×2 (07:51→19:26)
[2018-02-23] MEDS: Furosemide 20 MG Tab PO SCH (07:51)
[2018-02-23] MEDS: Ibuprofen 600 MG Tab PO SCH ×2 (07:51→17:20)
[2018-02-23] MEDS: Albuterol/Ipratropium 3.0-0.5 MG/3 ML Neb Soln NEB SCH ×2 (07:51→19:27)
[2018-02-23] MEDS: Omeprazole 20 MG Cap.CR PO SCH (07:52)
[2018-02-23] MEDS: Niacin 500 MG Tab PO SCH ×2 (07:52→17:20)
[2018-02-23] MEDS: Potassium Chloride 10% 20 MEQ/15 ML Soln 15 ML UD Cup PO SCH ×3 (07:53→19:27)
[2018-02-23] MEDS: Cholecalciferol (Vitamin D3) 25 MCG Tab PO SCH (07:53)
[2018-02-23] MEDS: Cyanocobalamin (Vitamin B12) 1,000 MCG Tab PO SCH (07:53)
[2018-02-23] MEDS: Clotrimazole 1% Crm 30 GM Tube TOP PRN (07:54)
[2018-02-23] MEDS: Chlorhexidine Gluconate 0.12% Oral Rinse 15 ML Cup MUCMEM SCH ×2 (08:30→19:28)
[2018-02-23] MEDS: LEVOTHYROXINE SODIUM 137 MCG PO SCH (19:26)
[2018-02-23] MEDS: buPROPion 100 MG Tab PO SCH (19:26)
[2018-02-23] MEDS: Simvastatin 10 MG Tab PO SCH (19:26)
[2018-02-24] MEDS: metroNIDAZOLE 500 MG Tab PO SCH ×3 (06:09→23:19)
[2018-02-24] MEDS: CEPHALEXIN 500 MG PO SCH ×2 (08:15→17:54)
[2018-02-24] MEDS: Citalopram 20 MG Tab PO SCH (08:15)
[2018-02-24] MEDS: Metoclopramide 10 MG Tab PO SCH ×2 (08:15→17:53)
[2018-02-24] MEDS: Lactobacillus Rhamnosus GG (Probiotic) Cap PO SCH ×2 (08:15→17:54)
[2018-02-24] MEDS: Furosemide 20 MG Tab PO SCH (08:16)
[2018-02-24] MEDS: Fludrocortisone 0.1 MG Tab PO SCH ×2 (08:16→19:32)
[2018-02-24] MEDS: Albuterol/Ipratropium 3.0-0.5 MG/3 ML Neb Soln NEB SCH ×2 (08:16→19:31)
[2018-02-24] MEDS: Ibuprofen 600 MG Tab PO SCH ×2 (08:16→17:55)
[2018-02-24] MEDS: Niacin 500 MG Tab PO SCH ×2 (08:19→17:55)
[2018-02-24] MEDS: Omeprazole 20 MG Cap.CR PO SCH (08:19)
[2018-02-24] MEDS: Potassium Chloride 10% 20 MEQ/15 ML Soln 15 ML UD Cup PO SCH ×3 (08:20→19:32)
[2018-02-24] MEDS: Cyanocobalamin (Vitamin B12) 1,000 MCG Tab PO SCH (08:21)
[2018-02-24] MEDS: Chlorhexidine Gluconate 0.12% Oral Rinse 15 ML Cup MUCMEM SCH ×2 (08:22→19:32)
[2018-02-24] MEDS: Cholecalciferol (Vitamin D3) 25 MCG Tab PO SCH (08:22)
[2018-02-24] MEDS: traMADol 50 MG Tab PO PRN (08:23)
--- NOTE | 2018-02-24 11:59 | PCM.PN ---
- General Info Date of Service: 02/24/18 Admission Dx/Problem (Free Text): 1. Myotonic dystrophy 2. CHF 3. COPD 4. Recurrent UTIs Functional Status: Reports: Pain Controlled, Tolerating Diet, Ambulating, Urinating, New Symptoms (Newly diagnosed C. difficile), Incentive Spirometry Pain Score: 0 - Review of Systems General: Reports: Weakness (Stable chronic), Fatigue (Stable chronic). Denies: Malaise, Chills, Night Sweats, Appetite (Good appetite) HEENT: Reports: Other (Stable poor dentition). Denies: Dysphasia, Ear Pain, Eye Pain, Headaches, Post Nasal Drip, Sinus Congestion, Sore Throat, Rhinitis, Visual Changes Pulmonary: Reports: No Symptoms. Denies: Shortness of Breath, Pleuritic Chest Pain, Cough, Sputum, Hemoptysis, Wheezing Cardiovascular: Reports: Edema (Stable chronic dependent). Denies: Chest Pain, Palpitations, Dyspnea on Exertion, Orthopnea, Lightheadedness Gastrointestinal: Reports: Diarrhea (Currently about 3 bowel movements per day somewhat loose in nature significantly improved after initiation of treatment of her C. difficile ). Denies: Abdominal Pain, Decreased Appetite, Difficulty Swallowing, Flatus, Hematochezia, Melena, Nausea, Vomiting Genitourinary: Reports: No Symptoms. Denies: Dysuria, Frequency, Burning, Pain , Urgency, Hematuria, Flank Pain Musculoskeletal: Reports: No Symptoms. Denies: Neck Pain, Shoulder Pain, Arm Pain, Back Pain, Leg Pain Skin: Reports: Rash (Perirectal inflammation secondary to her diarrhea). Denies : Jaundice, Pallor, Diaphoresis, Bruising, Pruritis Neurological: Reports: Pre-Existing Deficit (Stable chronic muscle weakness), Difficulty Walking (Stable as above although frequent wheelchair use), Weakness (Stable as above). Denies: Confusion, Dizziness, Headache, Numbness, Paresthesia, Tingling, Change in Speech Psychiatric: Reports: No Symptoms. Denies: Confusion, Depression, Agitation, Cravings, Hallucinations - Patient Data Vitals - Most Recent: Last Vital Signs Temp 36.3 C 02/17/18 08:00 Pulse 65 02/17/18 08:00 Resp 17 02/17/18 08:00 BP 110/56 L 02/17/18 08:00 Pulse Ox 93 L 02/17/18 08:00 Weight - Most Recent: 103.164 kg Imaging Impressions - Last 24 Hours: None Lab Results Last 24 Hours: None Sandor Results Last 24 Hours: None Med Orders - Current: Current Medications Acetaminophen (Tylenol) 650 mg PO Q4H PRN PRN Reason: Pain Last Admin: 02/22/18 19:23 Dose: 650 mg Albuterol/Ipratropium (Duoneb 3.0-0.5 Mg/3 Ml) 3 ml NEB BIDRT [facility] Last Admin: 02/24/18 08:16 Dose: 3 ml Albuterol/Ipratropium (Duoneb 3.0-0.5 Mg/3 Ml) 3 ml NEB Q4HRRT PRN PRN Reason: Dyspnea Last Admin: 11/30/17 19:29 Dose: 3 ml Bupropion HCl (Wellbutrin) 150 mg PO BEDTIME [facility] Last Admin: 02/23/18 19:26 Dose: 150 mg Calcium Carbonate/Glycine (Tums Extra Strength) 750 mg PO Q2HR PRN PRN Reason: Indigestion Last Admin: 02/06/18 14:57 Dose: 750 mg Chlorhexidine Gluconate (Peridex 0.12% Rinse) 15 ml MUCMEM BID@09,20 [facility] Last Admin: 02/24/18 08:22 Dose: 15 ml Cholecalciferol (Vitamin D3) 1,000 units PO QAM [facility] Last Admin: 02/24/18 08:22 Dose: 1,000 units Citalopram Hydrobromide (Celexa) 20 mg PO QAM [facility] Last Admin: 02/24/18 08:15 Dose: 20 mg Clotrimazole (Lotrimin Af 1% Crm) 1 gm TOP BID PRN PRN Reason: Rash Last Admin: 02/23/18 07:54 Dose: 1 applic Cyanocobalamin (Vitamin B12) 1,000 mcg PO QAM [facility] Last Admin: 02/24/18 08:21 Dose: 1,000 mcg Diphenhydramine HCl (Benadryl) 25 mg PO Q4H PRN PRN Reason: Itching Fludrocortisone Acetate (Florinef) 0.1 mg PO BEDTIME [facility] Last Admin: 02/23/18 19:26 Dose: 0.1 mg Fludrocortisone Acetate (Florinef) 0.2 mg PO QAM [facility] Last Admin: 02/24/18 08:16 Dose: 0.2 mg Furosemide (Lasix) 20 mg PO DAILY [facility] Last Admin: 02/24/18 08:16 Dose: 20 mg Ibuprofen (Motrin) 600 mg PO BID [facility] Last Admin: 02/24/18 08:16 Dose: 600 mg Ibuprofen (Motrin) 600 mg PO Q6H PRN PRN Reason: Breakthrough Pain Lactobacillus Rhamnosus (Culturelle) 2 cap PO BID [facility] Stop: 03/02/18 18:00 Last Admin: 02/24/18 08:15 Dose: 2 cap Metoclopramide HCl (Reglan) 10 mg PO BIDAC [facility] Last Admin: 02/24/18 08:15 Dose: 10 mg Metronidazole (Flagyl) 500 mg PO Q8H [facility] Stop: 02/26/18 14:01 Last Admin: 02/24/18 06:09 Dose: 500 mg Niacin (Niacin) 500 mg PO BID [facility] Last Admin: 02/24/18 08:19 Dose: 500 mg Cephalexin (Keflex) (500 Mg Capsules) 500 mg PO BID [facility] Last Admin: 02/24/18 08:15 Dose: 500 mg Levothyroxine Sodium (137 Mcg Tablets) 137 mcg PO BEDTIME [facility] Last Admin: 02/23/18 19:26 Dose: 137 mcg Omeprazole (Omeprazole) 20 mg PO DAILY [facility] Last Admin: 02/24/18 08:19 Dose: 20 mg Potassium Chloride (Potassium Chloride Solution) 40 meq PO TID@08,14,20 [facility] Last Admin: 02/24/18 08:20 Dose: 40 meq Simvastatin (Zocor) 10 mg PO BEDTIME [facility] Last Admin: 02/23/18 19:26 Dose: 10 mg Tramadol HCl (Ultram) 50 mg PO Q6H PRN PRN Reason: Pain (severe 7-10) Last Admin: 02/24/18 08:23 Dose: 50 mg Discontinued Medications Diphenoxylate HCl/Atropine (Lomotil 0.025-2.5 Mg) 1 tab PO QID PRN PRN Reason: Diarrhea Last Admin: 02/09/18 09:50 Dose: 1 tab Furosemide (Lasix) 40 mg IM NOW ONE Stop: 12/10/17 11:52 Last Admin: 12/10/17 13:10 Dose: 40 mg Fluconazole 150mg (Tablet) 1 each PO Q3D [facility] Stop: 12/06/17 20:01 Last Admin: 12/06/17 19:13 Dose: 1 each Potassium Chloride (Klor-Con M20) 20 meq PO ONETIME ONE Stop: 12/10/17 11:53 Last Admin: 12/10/17 13:10 Dose: 20 meq Potassium Chloride (Klor-Con M20) 20 meq PO DAILY [facility] - Exam Quality Assessment: Supplemental Oxygen, DVT Prophylaxis. No: Central Line/PICC , Urine Catheter, Skin Breakdown, Restraints General: Oriented, Cooperative, No Acute Distress HEENT: Pupils Equal, Pupils Reactive, EOMI, Mucous Membr. Moist/Henriette, Other ( Extremely poor dentition) Neck: Supple, Trachea Midline, No JVD, No Thyromegaly, +2 Carotid Pulse wo Bruit. No: Lymphadenopathy Lungs: Clear to Auscultation, Normal Respiratory Effort. No: Rub Cardiovascular: Regular Rate, Regular Rhythm, No Murmurs. No: Gallops, Rubs GI/Abdominal Exam: Normal Bowel Sounds, Soft, Non-Tender, No Organomegaly, No Distention, No Abnormal Bruit, No Mass, Other (Obese). No: Guarding (Female) Exam: Deferred Back Exam: Normal Inspection, Full Range of Motion. No: CVA Tenderness (L), CVA Tenderness (R), Muscle Spasm Extremities: Normal Range of Motion, Non-Tender, Normal Capillary Refill, Pedal Edema (Stable lymphedema of the lower extremities). No: Lurdes's Sign Peripheral Pulses: 2+: Radial (L), Radial (R) Skin: Rash (Perirectal as above) Neurological: No New Focal Deficit, Other (No clinical orthostasis) Psy/Mental Status: Alert, Normal Affect, Normal Mood. No: Labile Mood, Agitated , Hallucinations, Withdrawal Symptoms - Problem List & Annotations (1) Steinert myotonic dystrophy syndrome SNOMED Code(s): 15347786 Code(s): G71.11 - MYOTONIC MUSCULAR DYSTROPHY Status: Chronic Priority: Medium Current Visit: Yes Annotation/Comment:: Stable by history. Continuation of every 4 month CPK, etc. evaluations especially in light of aggressive treatment of her dyslipidemia. (2) CHF, Congestive heart failure SNOMED Code(s): 29744846 Code(s): I50.9 - HEART FAILURE, UNSPECIFIED Status: Chronic Priority: Medium Current Visit: Yes Annotation/Comment:: Stable after previously increased Lasix with significant improvement of her previous dependent edema since 12/10/17. Note persistent weight gain likely secondary to dietary noncompliance. Continue to observe closely. No recent anginal complaints or current clinical evidence of CHF. Note previous history of PVCs, complete right bundle branch block, severe dyslipidemia hypokalemia, hypophosphatemia, and hypernatremia. Continue to observe for now with no further change in medical therapy (3) Caries SNOMED Code(s): 74781071 Code(s): K02.9 - DENTAL CARIES, UNSPECIFIED Status: Acute Priority: Medium Current Visit: Yes Annotation/Comment:: Initial oral surgeon/dental consultation has been completed with surgery yet to be scheduled. Preoperative H &P to be conducted in this facility with update of her blood work, EKG, etc. at that time rate, otherwise if not previously conducted blood work should be updated prior to next swing bed rounds. After many years the patient has finally agreed to further treatment for her severe poor dentist disease, including multiple caries with no evidence of acute abscesses at this time. Note initial dental evaluation on 12/22/17. (4) COPD (chronic obstructive pulmonary disease) SNOMED Code(s): 20420420 Code(s): J44.9 - CHRONIC OBSTRUCTIVE PULMONARY DISEASE, UNSPECIFIED Status : Chronic Priority: Medium Current Visit: Yes Qualifiers: COPD type: unspecified COPD Qualified Code(s): J44.9 - Chronic obstructive pulmonary disease, unspecified Annotation/Comment:: COPD stable by history with no bronchitic symptoms at this time. Continue current medical therapy. Patient is now oxygen dependent with previous history of recent postoperative respiratory distress (5) Hyperglycemia SNOMED Code(s): 26979660 Code(s): R73.9 - HYPERGLYCEMIA, UNSPECIFIED Status: Chronic Priority: Medium Current Visit: Yes Onset Date: 06/29/15 Annotation/Comment:: Note persistent dietary noncompliance with 9 kilogram weight loss over the last 2 months likely secondary to IV Lasix therapy as above. Note previous recurrent additional 2 kg weight gain 2 months ago since last evaluation on 10/28/17. Dietary consultation is in effect. Glycosylated hemoglobin normal on 10/28/17 with repeat study at time of preoperative history and physical. (6) Hyperlipidemia SNOMED Code(s): 97565877 Code(s): E78.5 - HYPERLIPIDEMIA, UNSPECIFIED Status: Chronic Priority: Medium Current Visit: Yes Annotation/Comment:: Previous history of severe dyslipidemia with aggressive medical therapy at this time. Dietary compliance once again strongly encouraged. Repeat lipid panel at time of preoperative history and physical. (7) Hypothyroidism SNOMED Code(s): 35348477 Code(s): E03.9 - HYPOTHYROIDISM, UNSPECIFIED Status: Chronic Priority: Medium Current Visit: Yes Annotation/Comment:: TSH was normal 6 months ago with repeat yearly labs at time of preoperative history and physical as above (8) Mixed anxiety and depressive disorder SNOMED Code(s): 357379473 Code(s): F41.8 - OTHER SPECIFIED ANXIETY DISORDERS Status: Chronic Priority: Medium Current Visit: Yes Annotation/Comment:: Patient is still relatively active with physical therapy, social activities, etc.. Continue to observe closely by nursing staff with no significant depression at this time with patient often alone in her room. (9) Osteoarthritis SNOMED Code(s): 367500436 Code(s): M19.90 - UNSPECIFIED OSTEOARTHRITIS, UNSPECIFIED SITE Status: Chronic Priority: Medium Current Visit: Yes Annotation/Comment:: Stable by history as above. Note status post bilateral ankle ORIF secondary to fractures (10) UTI (urinary tract infection) SNOMED Code(s): 31226878 Code(s): N39.0 - URINARY TRACT INFECTION, SITE NOT SPECIFIED Status: Chronic Priority: Medium Current Visit: Yes Qualifiers: Hematuria presence: without hematuria Annotation/Comment:: No current UTI symptoms. History of recurrent UTIs with continuation of Keflex therapy as uroprophylaxis. (11) C. difficile colitis SNOMED Code(s): 392817591 Code(s): A04.72 - ENTEROCOLITIS D/T CLOSTRIDIUM DIFFICILE, NOT SPCF RECUR Status: Acute Current Visit: Yes Onset Date: 02/12/18 Annotation/ Comment:: Currently under therapy. Follow-up stool specimen has been ordered. Continue C. difficile exposure precautions - Problem List Review Problem List Initiated/Reviewed/Updated: Yes - My Orders Last 24 Hours: My Active Orders 02/27/18 05:11 C DIFFICILE TOXIN BY PCR [MREF] Routine - Assessment Assessment:: As above - Plan Plan:: As above. Extensive precautions were given to the patient, who is in agreement with the treatment plan. Probable preoperative history and physical for her complete dental extraction in the near future as above. Otherwise recertification in 2 months. Patient is recertified for further Swing Bed care on a long-term basis secondary to her multiple health problems as above
[2018-02-24] MEDS: LEVOTHYROXINE SODIUM 137 MCG PO SCH (19:32)
[2018-02-24] MEDS: buPROPion 100 MG Tab PO SCH (19:33)
[2018-02-24] MEDS: Simvastatin 10 MG Tab PO SCH (19:33)
[2018-02-25] MEDS: metroNIDAZOLE 500 MG Tab PO SCH ×3 (05:10→23:25)
[2018-02-25] MEDS: Metoclopramide 10 MG Tab PO SCH ×2 (08:00→17:23)
[2018-02-25] MEDS: CEPHALEXIN 500 MG PO SCH ×2 (08:00→17:23)
[2018-02-25] MEDS: Lactobacillus Rhamnosus GG (Probiotic) Cap PO SCH ×2 (08:00→17:23)
[2018-02-25] MEDS: Citalopram 20 MG Tab PO SCH (08:00)
[2018-02-25] MEDS: Ibuprofen 600 MG Tab PO SCH ×2 (08:01→17:24)
[2018-02-25] MEDS: Fludrocortisone 0.1 MG Tab PO SCH ×2 (08:01→19:38)
[2018-02-25] MEDS: Furosemide 20 MG Tab PO SCH (08:01)
[2018-02-25] MEDS: Albuterol/Ipratropium 3.0-0.5 MG/3 ML Neb Soln NEB SCH ×2 (08:01→19:38)
[2018-02-25] MEDS: Omeprazole 20 MG Cap.CR PO SCH (08:04)
[2018-02-25] MEDS: Niacin 500 MG Tab PO SCH ×2 (08:04→17:24)
[2018-02-25] MEDS: Cholecalciferol (Vitamin D3) 25 MCG Tab PO SCH (08:05)
[2018-02-25] MEDS: Potassium Chloride 10% 20 MEQ/15 ML Soln 15 ML UD Cup PO SCH ×3 (08:05→19:39)
[2018-02-25] MEDS: Cyanocobalamin (Vitamin B12) 1,000 MCG Tab PO SCH (08:05)
[2018-02-25] MEDS: Chlorhexidine Gluconate 0.12% Oral Rinse 15 ML Cup MUCMEM SCH ×2 (08:06→19:39)
[2018-02-25] MEDS: Acetaminophen 325 MG Tab PO PRN (08:06)
[2018-02-25] MEDS: traMADol 50 MG Tab PO PRN (08:07)
[2018-02-25] MEDS: LEVOTHYROXINE SODIUM 137 MCG PO SCH (19:38)
[2018-02-25] MEDS: Simvastatin 10 MG Tab PO SCH (19:39)
[2018-02-25] MEDS: buPROPion 100 MG Tab PO SCH (19:39)
[2018-02-26] MEDS: metroNIDAZOLE 500 MG Tab PO SCH ×2 (05:40→14:14)
[2018-02-26] MEDS: Lactobacillus Rhamnosus GG (Probiotic) Cap PO SCH ×2 (08:14→17:40)
[2018-02-26] MEDS: Albuterol/Ipratropium 3.0-0.5 MG/3 ML Neb Soln NEB SCH ×2 (08:14→19:36)
[2018-02-26] MEDS: CEPHALEXIN 500 MG PO SCH ×2 (08:14→17:40)
[2018-02-26] MEDS: Citalopram 20 MG Tab PO SCH (08:14)
[2018-02-26] MEDS: Fludrocortisone 0.1 MG Tab PO SCH ×2 (08:14→19:36)
[2018-02-26] MEDS: Metoclopramide 10 MG Tab PO SCH ×2 (08:14→17:40)
[2018-02-26] MEDS: Ibuprofen 600 MG Tab PO SCH ×2 (08:15→17:40)
[2018-02-26] MEDS: Niacin 500 MG Tab PO SCH ×2 (08:15→17:41)
[2018-02-26] MEDS: Furosemide 20 MG Tab PO SCH (08:15)
[2018-02-26] MEDS: Omeprazole 20 MG Cap.CR PO SCH (08:15)
[2018-02-26] MEDS: Cholecalciferol (Vitamin D3) 25 MCG Tab PO SCH (08:16)
[2018-02-26] MEDS: Cyanocobalamin (Vitamin B12) 1,000 MCG Tab PO SCH (08:16)
[2018-02-26] MEDS: Potassium Chloride 10% 20 MEQ/15 ML Soln 15 ML UD Cup PO SCH ×3 (08:16→19:37)
[2018-02-26] MEDS: Chlorhexidine Gluconate 0.12% Oral Rinse 15 ML Cup MUCMEM SCH ×2 (08:17→19:37)
[2018-02-26] MEDS: buPROPion 100 MG Tab PO SCH (19:36)
[2018-02-26] MEDS: LEVOTHYROXINE SODIUM 137 MCG PO SCH (19:36)
[2018-02-26] MEDS: Simvastatin 10 MG Tab PO SCH (19:37)
[2018-02-27] MEDS: Lactobacillus Rhamnosus GG (Probiotic) Cap PO SCH ×2 (08:12→17:33)
[2018-02-27] MEDS: Metoclopramide 10 MG Tab PO SCH ×2 (08:12→17:33)
[2018-02-27] MEDS: Citalopram 20 MG Tab PO SCH (08:12)
[2018-02-27] MEDS: CEPHALEXIN 500 MG PO SCH ×2 (08:12→17:33)
[2018-02-27] MEDS: Albuterol/Ipratropium 3.0-0.5 MG/3 ML Neb Soln NEB SCH ×2 (08:13→19:23)
[2018-02-27] MEDS: Furosemide 20 MG Tab PO SCH (08:13)
[2018-02-27] MEDS: Niacin 500 MG Tab PO SCH ×2 (08:13→17:34)
[2018-02-27] MEDS: Ibuprofen 600 MG Tab PO SCH ×2 (08:13→17:33)
[2018-02-27] MEDS: Fludrocortisone 0.1 MG Tab PO SCH ×2 (08:13→19:23)
[2018-02-27] MEDS: Potassium Chloride 10% 20 MEQ/15 ML Soln 15 ML UD Cup PO SCH ×3 (08:14→19:23)
[2018-02-27] MEDS: Omeprazole 20 MG Cap.CR PO SCH (08:14)
[2018-02-27] MEDS: Cholecalciferol (Vitamin D3) 25 MCG Tab PO SCH (08:15)
[2018-02-27] MEDS: Chlorhexidine Gluconate 0.12% Oral Rinse 15 ML Cup MUCMEM SCH ×2 (08:15→19:23)
[2018-02-27] MEDS: Cyanocobalamin (Vitamin B12) 1,000 MCG Tab PO SCH (08:15)
[2018-02-27] MEDS: LEVOTHYROXINE SODIUM 137 MCG PO SCH (19:23)
[2018-02-27] MEDS: Simvastatin 10 MG Tab PO SCH (19:23)
[2018-02-27] MEDS: buPROPion 100 MG Tab PO SCH (19:23)
[2018-02-28] MEDS: Furosemide 20 MG Tab PO SCH (07:45)
[2018-02-28] MEDS: CEPHALEXIN 500 MG PO SCH ×2 (07:45→17:19)
[2018-02-28] MEDS: Citalopram 20 MG Tab PO SCH (07:45)
[2018-02-28] MEDS: Lactobacillus Rhamnosus GG (Probiotic) Cap PO SCH ×2 (07:45→17:20)
[2018-02-28] MEDS: Fludrocortisone 0.1 MG Tab PO SCH ×2 (07:45→19:12)
[2018-02-28] MEDS: Metoclopramide 10 MG Tab PO SCH ×2 (07:45→17:19)
[2018-02-28] MEDS: Albuterol/Ipratropium 3.0-0.5 MG/3 ML Neb Soln NEB SCH ×2 (07:45→19:13)
[2018-02-28] MEDS: Niacin 500 MG Tab PO SCH ×2 (07:46→17:20)
[2018-02-28] MEDS: Ibuprofen 600 MG Tab PO SCH ×2 (07:46→17:20)
[2018-02-28] MEDS: Omeprazole 20 MG Cap.CR PO SCH (07:46)
[2018-02-28] MEDS: Cyanocobalamin (Vitamin B12) 1,000 MCG Tab PO SCH (07:47)
[2018-02-28] MEDS: Potassium Chloride 10% 20 MEQ/15 ML Soln 15 ML UD Cup PO SCH ×3 (07:47→19:12)
[2018-02-28] MEDS: Acetaminophen 325 MG Tab PO PRN (07:48)
[2018-02-28] MEDS: traMADol 50 MG Tab PO PRN (07:49)
[2018-02-28] MEDS: Cholecalciferol (Vitamin D3) 25 MCG Tab PO SCH (07:50)
[2018-02-28] MEDS: Chlorhexidine Gluconate 0.12% Oral Rinse 15 ML Cup MUCMEM SCH ×2 (08:31→19:12)
[2018-02-28] MEDS: Simvastatin 10 MG Tab PO SCH (19:12)
[2018-02-28] MEDS: LEVOTHYROXINE SODIUM 137 MCG PO SCH (19:12)
[2018-02-28] MEDS: buPROPion 100 MG Tab PO SCH (19:12)
[2018-03-01] MEDS: Acetaminophen 325 MG Tab PO PRN (03:27)
[2018-03-01] MEDS: Potassium Chloride 10% 20 MEQ/15 ML Soln 15 ML UD Cup PO SCH ×3 (07:37→19:17)
[2018-03-01] MEDS: Metoclopramide 10 MG Tab PO SCH ×2 (07:38→17:09)
[2018-03-01] MEDS: Lactobacillus Rhamnosus GG (Probiotic) Cap PO SCH ×2 (07:38→17:10)
[2018-03-01] MEDS: CEPHALEXIN 500 MG PO SCH ×2 (07:38→17:09)
[2018-03-01] MEDS: Citalopram 20 MG Tab PO SCH (07:38)
[2018-03-01] MEDS: Furosemide 20 MG Tab PO SCH (07:39)
[2018-03-01] MEDS: Albuterol/Ipratropium 3.0-0.5 MG/3 ML Neb Soln NEB SCH ×2 (07:39→19:17)
[2018-03-01] MEDS: Fludrocortisone 0.1 MG Tab PO SCH ×2 (07:39→19:17)
[2018-03-01] MEDS: Niacin 500 MG Tab PO SCH ×2 (07:39→17:10)
[2018-03-01] MEDS: Ibuprofen 600 MG Tab PO SCH ×2 (07:39→17:10)
[2018-03-01] MEDS: Omeprazole 20 MG Cap.CR PO SCH (07:40)
[2018-03-01] MEDS: Cyanocobalamin (Vitamin B12) 1,000 MCG Tab PO SCH (07:40)
[2018-03-01] MEDS: Cholecalciferol (Vitamin D3) 25 MCG Tab PO SCH (07:40)
[2018-03-01] MEDS: Chlorhexidine Gluconate 0.12% Oral Rinse 15 ML Cup MUCMEM SCH ×2 (08:07→19:17)
[2018-03-01] MEDS: Simvastatin 10 MG Tab PO SCH (19:17)
[2018-03-01] MEDS: buPROPion 100 MG Tab PO SCH (19:17)
[2018-03-01] MEDS: LEVOTHYROXINE SODIUM 137 MCG PO SCH (19:17)
[2018-03-02] MEDS: CEPHALEXIN 500 MG PO SCH ×2 (07:57→17:10)
[2018-03-02] MEDS: Lactobacillus Rhamnosus GG (Probiotic) Cap PO SCH ×2 (07:57→17:10)
[2018-03-02] MEDS: Citalopram 20 MG Tab PO SCH (07:57)
[2018-03-02] MEDS: Metoclopramide 10 MG Tab PO SCH ×2 (07:57→17:09)
[2018-03-02] MEDS: Albuterol/Ipratropium 3.0-0.5 MG/3 ML Neb Soln NEB SCH ×2 (07:58→19:27)
[2018-03-02] MEDS: Niacin 500 MG Tab PO SCH ×2 (07:58→17:11)
[2018-03-02] MEDS: Ibuprofen 600 MG Tab PO SCH ×2 (07:58→17:10)
[2018-03-02] MEDS: Omeprazole 20 MG Cap.CR PO SCH (07:58)
[2018-03-02] MEDS: Fludrocortisone 0.1 MG Tab PO SCH ×2 (07:58→19:28)
[2018-03-02] MEDS: Furosemide 20 MG Tab PO SCH (07:58)
[2018-03-02] MEDS: Potassium Chloride 10% 20 MEQ/15 ML Soln 15 ML UD Cup PO SCH ×3 (07:59→19:28)
[2018-03-02] MEDS: Cholecalciferol (Vitamin D3) 25 MCG Tab PO SCH (08:00)
[2018-03-02] MEDS: Cyanocobalamin (Vitamin B12) 1,000 MCG Tab PO SCH (08:00)
[2018-03-02] MEDS: Chlorhexidine Gluconate 0.12% Oral Rinse 15 ML Cup MUCMEM SCH ×2 (08:00→19:28)
[2018-03-02] MEDS: LEVOTHYROXINE SODIUM 137 MCG PO SCH (19:28)
[2018-03-02] MEDS: buPROPion 100 MG Tab PO SCH (19:29)
[2018-03-02] MEDS: Simvastatin 10 MG Tab PO SCH (19:29)
[2018-03-03] MEDS: Metoclopramide 10 MG Tab PO SCH ×2 (07:14→17:16)
[2018-03-03] MEDS: Albuterol/Ipratropium 3.0-0.5 MG/3 ML Neb Soln NEB SCH ×2 (07:14→19:29)
[2018-03-03] MEDS: CEPHALEXIN 500 MG PO SCH ×2 (07:14→17:16)
[2018-03-03] MEDS: Citalopram 20 MG Tab PO SCH (07:14)
[2018-03-03] MEDS: Furosemide 20 MG Tab PO SCH (07:15)
[2018-03-03] MEDS: Niacin 500 MG Tab PO SCH ×2 (07:15→17:17)
[2018-03-03] MEDS: Omeprazole 20 MG Cap.CR PO SCH (07:15)
[2018-03-03] MEDS: Fludrocortisone 0.1 MG Tab PO SCH ×2 (07:15→19:30)
[2018-03-03] MEDS: Ibuprofen 600 MG Tab PO SCH ×2 (07:15→17:16)
[2018-03-03] MEDS: Cyanocobalamin (Vitamin B12) 1,000 MCG Tab PO SCH (07:16)
[2018-03-03] MEDS: Potassium Chloride 10% 20 MEQ/15 ML Soln 15 ML UD Cup PO SCH ×3 (07:16→19:31)
[2018-03-03] MEDS: Cholecalciferol (Vitamin D3) 25 MCG Tab PO SCH (07:17)
[2018-03-03] MEDS: Chlorhexidine Gluconate 0.12% Oral Rinse 15 ML Cup MUCMEM SCH ×2 (08:32→19:31)
[2018-03-03] MEDS: Acetaminophen 325 MG Tab PO PRN (19:29)
[2018-03-03] MEDS: buPROPion 100 MG Tab PO SCH (19:30)
[2018-03-03] MEDS: LEVOTHYROXINE SODIUM 137 MCG PO SCH (19:30)
[2018-03-03] MEDS: Simvastatin 10 MG Tab PO SCH (19:32)
[2018-03-04] MEDS: Furosemide 20 MG Tab PO SCH (08:09)
[2018-03-04] MEDS: Ibuprofen 600 MG Tab PO SCH ×2 (08:09→17:28)
[2018-03-04] MEDS: Fludrocortisone 0.1 MG Tab PO SCH ×2 (08:09→19:27)
[2018-03-04] MEDS: CEPHALEXIN 500 MG PO SCH ×2 (08:09→17:27)
[2018-03-04] MEDS: Metoclopramide 10 MG Tab PO SCH ×2 (08:09→17:27)
[2018-03-04] MEDS: Citalopram 20 MG Tab PO SCH (08:09)
[2018-03-04] MEDS: Omeprazole 20 MG Cap.CR PO SCH (08:10)
[2018-03-04] MEDS: Niacin 500 MG Tab PO SCH ×2 (08:11→17:29)
[2018-03-04] MEDS: Potassium Chloride 10% 20 MEQ/15 ML Soln 15 ML UD Cup PO SCH ×3 (08:13→19:28)
[2018-03-04] MEDS: Cholecalciferol (Vitamin D3) 25 MCG Tab PO SCH (08:15)
[2018-03-04] MEDS: Cyanocobalamin (Vitamin B12) 1,000 MCG Tab PO SCH (08:16)
[2018-03-04] MEDS: Chlorhexidine Gluconate 0.12% Oral Rinse 15 ML Cup MUCMEM SCH ×2 (08:16→19:28)
[2018-03-04] MEDS: Albuterol/Ipratropium 3.0-0.5 MG/3 ML Neb Soln NEB SCH ×2 (08:16→19:27)
[2018-03-04] MEDS: traMADol 50 MG Tab PO PRN (19:25)
[2018-03-04] MEDS: LEVOTHYROXINE SODIUM 137 MCG PO SCH (19:27)
[2018-03-04] MEDS: buPROPion 100 MG Tab PO SCH (19:29)
[2018-03-04] MEDS: Simvastatin 10 MG Tab PO SCH (19:29)
[2018-03-05] MEDS: Metoclopramide 10 MG Tab PO SCH ×2 (07:59→18:04)
[2018-03-05] MEDS: CEPHALEXIN 500 MG PO SCH ×2 (07:59→18:04)
[2018-03-05] MEDS: Citalopram 20 MG Tab PO SCH (07:59)
[2018-03-05] MEDS: Ibuprofen 600 MG Tab PO SCH ×2 (08:00→18:04)
[2018-03-05] MEDS: Albuterol/Ipratropium 3.0-0.5 MG/3 ML Neb Soln NEB SCH ×2 (08:00→19:42)
[2018-03-05] MEDS: Fludrocortisone 0.1 MG Tab PO SCH ×2 (08:00→19:43)
[2018-03-05] MEDS: Furosemide 20 MG Tab PO SCH (08:00)
[2018-03-05] MEDS: Potassium Chloride 10% 20 MEQ/15 ML Soln 15 ML UD Cup PO SCH ×3 (08:01→19:44)
[2018-03-05] MEDS: Omeprazole 20 MG Cap.CR PO SCH (08:01)
[2018-03-05] MEDS: Niacin 500 MG Tab PO SCH ×2 (08:01→18:11)
[2018-03-05] MEDS: Cyanocobalamin (Vitamin B12) 1,000 MCG Tab PO SCH (08:02)
[2018-03-05] MEDS: Chlorhexidine Gluconate 0.12% Oral Rinse 15 ML Cup MUCMEM SCH ×2 (08:03→19:43)
[2018-03-05] MEDS: Cholecalciferol (Vitamin D3) 25 MCG Tab PO SCH (08:03)
[2018-03-05] MEDS: LEVOTHYROXINE SODIUM 137 MCG PO SCH (19:43)
[2018-03-05] MEDS: buPROPion 100 MG Tab PO SCH (19:46)
[2018-03-05] MEDS: Simvastatin 10 MG Tab PO SCH (19:46)
[2018-03-06] MEDS: CEPHALEXIN 500 MG PO SCH ×2 (08:17→17:31)
[2018-03-06] MEDS: Citalopram 20 MG Tab PO SCH (08:17)
[2018-03-06] MEDS: Furosemide 20 MG Tab PO SCH (08:17)
[2018-03-06] MEDS: Albuterol/Ipratropium 3.0-0.5 MG/3 ML Neb Soln NEB SCH ×2 (08:17→19:44)
[2018-03-06] MEDS: Fludrocortisone 0.1 MG Tab PO SCH ×2 (08:17→19:45)
[2018-03-06] MEDS: Metoclopramide 10 MG Tab PO SCH ×2 (08:17→17:30)
[2018-03-06] MEDS: Niacin 500 MG Tab PO SCH ×2 (08:18→17:31)
[2018-03-06] MEDS: Omeprazole 20 MG Cap.CR PO SCH (08:18)
[2018-03-06] MEDS: Ibuprofen 600 MG Tab PO SCH ×2 (08:18→17:31)
[2018-03-06] MEDS: Chlorhexidine Gluconate 0.12% Oral Rinse 15 ML Cup MUCMEM SCH ×2 (08:19→19:45)
[2018-03-06] MEDS: Cholecalciferol (Vitamin D3) 25 MCG Tab PO SCH (08:19)
[2018-03-06] MEDS: Cyanocobalamin (Vitamin B12) 1,000 MCG Tab PO SCH (08:19)
[2018-03-06] MEDS: Potassium Chloride 10% 20 MEQ/15 ML Soln 15 ML UD Cup PO SCH ×3 (08:20→19:46)
[2018-03-06] MEDS: LEVOTHYROXINE SODIUM 137 MCG PO SCH (19:45)
[2018-03-06] MEDS: buPROPion 100 MG Tab PO SCH (19:47)
[2018-03-06] MEDS: Simvastatin 10 MG Tab PO SCH (19:47)
[2018-03-07] MEDS: Metoclopramide 10 MG Tab PO SCH ×2 (07:58→17:58)
[2018-03-07] MEDS: Albuterol/Ipratropium 3.0-0.5 MG/3 ML Neb Soln NEB SCH ×2 (07:58→19:06)
[2018-03-07] MEDS: CEPHALEXIN 500 MG PO SCH ×2 (07:58→17:58)
[2018-03-07] MEDS: Citalopram 20 MG Tab PO SCH (07:58)
[2018-03-07] MEDS: Furosemide 20 MG Tab PO SCH (07:59)
[2018-03-07] MEDS: Omeprazole 20 MG Cap.CR PO SCH (07:59)
[2018-03-07] MEDS: Ibuprofen 600 MG Tab PO SCH ×2 (07:59→18:00)
[2018-03-07] MEDS: Fludrocortisone 0.1 MG Tab PO SCH ×2 (07:59→19:06)
[2018-03-07] MEDS: Niacin 500 MG Tab PO SCH ×2 (07:59→18:01)
[2018-03-07] MEDS: Cholecalciferol (Vitamin D3) 25 MCG Tab PO SCH (08:00)
[2018-03-07] MEDS: Cyanocobalamin (Vitamin B12) 1,000 MCG Tab PO SCH (08:00)
[2018-03-07] MEDS: Potassium Chloride 10% 20 MEQ/15 ML Soln 15 ML UD Cup PO SCH ×3 (08:01→19:05)
[2018-03-07] MEDS: Chlorhexidine Gluconate 0.12% Oral Rinse 15 ML Cup MUCMEM SCH ×2 (08:01→19:06)
[2018-03-07] MEDS: Simvastatin 10 MG Tab PO SCH (19:06)
[2018-03-07] MEDS: buPROPion 100 MG Tab PO SCH (19:06)
[2018-03-07] MEDS: LEVOTHYROXINE SODIUM 137 MCG PO SCH (19:06)
[2018-03-07] MEDS: Clotrimazole 1% Crm 30 GM Tube TOP PRN (19:07)
[2018-03-08] MEDS: Citalopram 20 MG Tab PO SCH (07:56)
[2018-03-08] MEDS: Metoclopramide 10 MG Tab PO SCH ×2 (07:56→18:11)
[2018-03-08] MEDS: Fludrocortisone 0.1 MG Tab PO SCH ×2 (07:57→19:32)
[2018-03-08] MEDS: CEPHALEXIN 500 MG PO SCH ×2 (07:57→18:12)
[2018-03-08] MEDS: Furosemide 20 MG Tab PO SCH (07:57)
[2018-03-08] MEDS: Ibuprofen 600 MG Tab PO SCH ×2 (07:57→18:12)
[2018-03-08] MEDS: Potassium Chloride 10% 20 MEQ/15 ML Soln 15 ML UD Cup PO SCH ×3 (07:58→19:32)
[2018-03-08] MEDS: Omeprazole 20 MG Cap.CR PO SCH (07:58)
[2018-03-08] MEDS: Niacin 500 MG Tab PO SCH ×2 (07:58→18:13)
[2018-03-08] MEDS: Cyanocobalamin (Vitamin B12) 1,000 MCG Tab PO SCH (07:59)
[2018-03-08] MEDS: Cholecalciferol (Vitamin D3) 25 MCG Tab PO SCH (08:01)
[2018-03-08] MEDS: Albuterol/Ipratropium 3.0-0.5 MG/3 ML Neb Soln NEB SCH ×2 (09:53→19:31)
[2018-03-08] MEDS: Chlorhexidine Gluconate 0.12% Oral Rinse 15 ML Cup MUCMEM SCH ×2 (09:54→19:32)
[2018-03-08] MEDS: Simvastatin 10 MG Tab PO SCH (19:31)
[2018-03-08] MEDS: buPROPion 100 MG Tab PO SCH (19:31)
[2018-03-08] MEDS: LEVOTHYROXINE SODIUM 137 MCG PO SCH (19:32)
[2018-03-09] MEDS: Albuterol/Ipratropium 3.0-0.5 MG/3 ML Neb Soln NEB SCH ×2 (08:19→19:14)
[2018-03-09] MEDS: Chlorhexidine Gluconate 0.12% Oral Rinse 15 ML Cup MUCMEM SCH ×2 (08:19→19:15)
[2018-03-09] MEDS: Metoclopramide 10 MG Tab PO SCH ×2 (08:19→17:10)
[2018-03-09] MEDS: Potassium Chloride 10% 20 MEQ/15 ML Soln 15 ML UD Cup PO SCH ×3 (08:19→19:16)
[2018-03-09] MEDS: CEPHALEXIN 500 MG PO SCH ×2 (08:19→17:10)
[2018-03-09] MEDS: Citalopram 20 MG Tab PO SCH (08:19)
[2018-03-09] MEDS: Fludrocortisone 0.1 MG Tab PO SCH ×2 (08:20→19:14)
[2018-03-09] MEDS: Furosemide 20 MG Tab PO SCH (08:20)
[2018-03-09] MEDS: Ibuprofen 600 MG Tab PO SCH ×2 (08:20→17:10)
[2018-03-09] MEDS: Niacin 500 MG Tab PO SCH ×2 (08:20→17:10)
[2018-03-09] MEDS: Omeprazole 20 MG Cap.CR PO SCH (08:21)
[2018-03-09] MEDS: Cholecalciferol (Vitamin D3) 25 MCG Tab PO SCH (08:21)
[2018-03-09] MEDS: Cyanocobalamin (Vitamin B12) 1,000 MCG Tab PO SCH (08:21)
[2018-03-09] MEDS: LEVOTHYROXINE SODIUM 137 MCG PO SCH (19:14)
[2018-03-09] MEDS: buPROPion 100 MG Tab PO SCH (19:15)
[2018-03-09] MEDS: Simvastatin 10 MG Tab PO SCH (19:15)
[2018-03-10] MEDS: Albuterol/Ipratropium 3.0-0.5 MG/3 ML Neb Soln NEB SCH ×2 (07:20→19:52)
[2018-03-10] MEDS: Omeprazole 20 MG Cap.CR PO SCH (08:28)
[2018-03-10] MEDS: Ibuprofen 600 MG Tab PO SCH ×2 (08:29→17:53)
[2018-03-10] MEDS: Fludrocortisone 0.1 MG Tab PO SCH ×2 (08:29→19:50)
[2018-03-10] MEDS: Furosemide 20 MG Tab PO SCH (08:29)
[2018-03-10] MEDS: CEPHALEXIN 500 MG PO SCH ×2 (08:29→17:53)
[2018-03-10] MEDS: Metoclopramide 10 MG Tab PO SCH ×2 (08:30→17:54)
[2018-03-10] MEDS: Niacin 500 MG Tab PO SCH ×2 (08:30→17:54)
[2018-03-10] MEDS: Citalopram 20 MG Tab PO SCH (08:30)
[2018-03-10] MEDS: Cyanocobalamin (Vitamin B12) 1,000 MCG Tab PO SCH (08:31)
[2018-03-10] MEDS: Cholecalciferol (Vitamin D3) 25 MCG Tab PO SCH (08:31)
[2018-03-10] MEDS: Potassium Chloride 10% 20 MEQ/15 ML Soln 15 ML UD Cup PO SCH ×3 (08:32→19:51)
[2018-03-10] MEDS: Chlorhexidine Gluconate 0.12% Oral Rinse 15 ML Cup MUCMEM SCH ×2 (08:32→19:51)
[2018-03-10] MEDS: buPROPion 100 MG Tab PO SCH (19:50)
[2018-03-10] MEDS: Simvastatin 10 MG Tab PO SCH (19:50)
[2018-03-10] MEDS: LEVOTHYROXINE SODIUM 137 MCG PO SCH (19:50)
[2018-03-11] MEDS: Ibuprofen 600 MG Tab PO SCH ×2 (07:55→17:54)
[2018-03-11] MEDS: Omeprazole 20 MG Cap.CR PO SCH (07:55)
[2018-03-11] MEDS: Furosemide 20 MG Tab PO SCH (07:56)
[2018-03-11] MEDS: CEPHALEXIN 500 MG PO SCH (07:56)
[2018-03-11] MEDS: Citalopram 20 MG Tab PO SCH (07:56)
[2018-03-11] MEDS: Fludrocortisone 0.1 MG Tab PO SCH ×2 (07:56→19:20)
[2018-03-11] MEDS: Metoclopramide 10 MG Tab PO SCH ×2 (07:56→17:54)
[2018-03-11] MEDS: Niacin 500 MG Tab PO SCH ×2 (07:58→17:55)
[2018-03-11] MEDS: Potassium Chloride 10% 20 MEQ/15 ML Soln 15 ML UD Cup PO SCH ×3 (07:58→19:20)
[2018-03-11] MEDS: Cyanocobalamin (Vitamin B12) 1,000 MCG Tab PO SCH (07:59)
[2018-03-11] MEDS: Cholecalciferol (Vitamin D3) 25 MCG Tab PO SCH (08:00)
[2018-03-11] MEDS: Albuterol/Ipratropium 3.0-0.5 MG/3 ML Neb Soln NEB SCH ×2 (08:00→19:21)
[2018-03-11] MEDS: Chlorhexidine Gluconate 0.12% Oral Rinse 15 ML Cup MUCMEM SCH ×2 (08:00→19:21)
--- NOTE | 2018-03-11 13:54 | PCM.SN ---
- Free Text/Narrative Note: Follow up stool for C. difficle antigen was negative. Keflex uroprophylaxis and Prilosec were discontinued today to prevent reoccurrence. Watch symptoms closely for UTI and GERD. Consider discontinuation of Reglan, if symptoms remain stable.
[2018-03-11] MEDS: Simvastatin 10 MG Tab PO SCH (19:20)
[2018-03-11] MEDS: LEVOTHYROXINE SODIUM 137 MCG PO SCH (19:20)
[2018-03-11] MEDS: buPROPion 100 MG Tab PO SCH (19:20)
[2018-03-12] MEDS: Metoclopramide 10 MG Tab PO SCH ×2 (07:35→17:21)
[2018-03-12] MEDS: Albuterol/Ipratropium 3.0-0.5 MG/3 ML Neb Soln NEB SCH ×2 (07:35→19:10)
[2018-03-12] MEDS: Citalopram 20 MG Tab PO SCH (07:35)
[2018-03-12] MEDS: Niacin 500 MG Tab PO SCH ×2 (07:36→17:21)
[2018-03-12] MEDS: Ibuprofen 600 MG Tab PO SCH ×2 (07:36→17:21)
[2018-03-12] MEDS: Furosemide 20 MG Tab PO SCH (07:36)
[2018-03-12] MEDS: Fludrocortisone 0.1 MG Tab PO SCH ×2 (07:36→19:09)
[2018-03-12] MEDS: Potassium Chloride 10% 20 MEQ/15 ML Soln 15 ML UD Cup PO SCH ×3 (07:37→19:09)
[2018-03-12] MEDS: Cyanocobalamin (Vitamin B12) 1,000 MCG Tab PO SCH (07:38)
[2018-03-12] MEDS: Cholecalciferol (Vitamin D3) 25 MCG Tab PO SCH (07:38)
[2018-03-12] MEDS: Chlorhexidine Gluconate 0.12% Oral Rinse 15 ML Cup MUCMEM SCH ×2 (08:18→19:09)
[2018-03-12] MEDS: Simvastatin 10 MG Tab PO SCH (19:09)
[2018-03-12] MEDS: buPROPion 100 MG Tab PO SCH (19:09)
[2018-03-12] MEDS: LEVOTHYROXINE SODIUM 137 MCG PO SCH (19:09)
[2018-03-13] MEDS: Fludrocortisone 0.1 MG Tab PO SCH ×2 (07:57→19:50)
[2018-03-13] MEDS: Niacin 500 MG Tab PO SCH ×2 (07:57→18:44)
[2018-03-13] MEDS: Cyanocobalamin (Vitamin B12) 1,000 MCG Tab PO SCH (07:57)
[2018-03-13] MEDS: Metoclopramide 10 MG Tab PO SCH ×2 (07:57→18:44)
[2018-03-13] MEDS: Citalopram 20 MG Tab PO SCH (07:57)
[2018-03-13] MEDS: Furosemide 20 MG Tab PO SCH (07:57)
[2018-03-13] MEDS: Cholecalciferol (Vitamin D3) 25 MCG Tab PO SCH (07:57)
[2018-03-13] MEDS: Potassium Chloride 10% 20 MEQ/15 ML Soln 15 ML UD Cup PO SCH ×3 (07:57→19:50)
[2018-03-13] MEDS: Ibuprofen 600 MG Tab PO SCH ×2 (07:57→18:44)
[2018-03-13] MEDS: Albuterol/Ipratropium 3.0-0.5 MG/3 ML Neb Soln NEB SCH ×2 (07:58→19:49)
[2018-03-13] MEDS: Chlorhexidine Gluconate 0.12% Oral Rinse 15 ML Cup MUCMEM SCH ×2 (08:00→19:50)
[2018-03-13] MEDS: buPROPion 100 MG Tab PO SCH (19:49)
[2018-03-13] MEDS: LEVOTHYROXINE SODIUM 137 MCG PO SCH (19:50)
[2018-03-13] MEDS: Simvastatin 10 MG Tab PO SCH (19:51)
[2018-03-14] MEDS: Metoclopramide 10 MG Tab PO SCH ×2 (08:12→17:58)
[2018-03-14] MEDS: Citalopram 20 MG Tab PO SCH (08:12)
[2018-03-14] MEDS: Furosemide 20 MG Tab PO SCH (08:13)
[2018-03-14] MEDS: Albuterol/Ipratropium 3.0-0.5 MG/3 ML Neb Soln NEB SCH ×2 (08:13→19:36)
[2018-03-14] MEDS: Fludrocortisone 0.1 MG Tab PO SCH ×2 (08:13→19:36)
[2018-03-14] MEDS: Ibuprofen 600 MG Tab PO SCH ×2 (08:14→17:58)
[2018-03-14] MEDS: Potassium Chloride 10% 20 MEQ/15 ML Soln 15 ML UD Cup PO SCH ×3 (08:15→19:36)
[2018-03-14] MEDS: Niacin 500 MG Tab PO SCH ×2 (08:15→17:59)
[2018-03-14] MEDS: Cyanocobalamin (Vitamin B12) 1,000 MCG Tab PO SCH (08:17)
[2018-03-14] MEDS: Cholecalciferol (Vitamin D3) 25 MCG Tab PO SCH (08:17)
[2018-03-14] MEDS: Chlorhexidine Gluconate 0.12% Oral Rinse 15 ML Cup MUCMEM SCH ×2 (08:19→19:36)
[2018-03-14] MEDS: LEVOTHYROXINE SODIUM 137 MCG PO SCH (19:36)
[2018-03-14] MEDS: Simvastatin 10 MG Tab PO SCH (19:37)
[2018-03-14] MEDS: buPROPion 100 MG Tab PO SCH (19:37)
[2018-03-14] MEDS: Clotrimazole 1% Crm 30 GM Tube TOP PRN (19:41)
[2018-03-15] MEDS: Citalopram 20 MG Tab PO SCH (08:15)
[2018-03-15] MEDS: Albuterol/Ipratropium 3.0-0.5 MG/3 ML Neb Soln NEB SCH ×2 (08:15→19:50)
[2018-03-15] MEDS: Metoclopramide 10 MG Tab PO SCH ×2 (08:15→17:45)
[2018-03-15] MEDS: Fludrocortisone 0.1 MG Tab PO SCH ×2 (08:16→19:50)
[2018-03-15] MEDS: Furosemide 20 MG Tab PO SCH (08:16)
[2018-03-15] MEDS: Ibuprofen 600 MG Tab PO SCH ×2 (08:17→17:45)
[2018-03-15] MEDS: Niacin 500 MG Tab PO SCH ×2 (08:18→17:46)
[2018-03-15] MEDS: Cyanocobalamin (Vitamin B12) 1,000 MCG Tab PO SCH (08:19)
[2018-03-15] MEDS: Potassium Chloride 10% 20 MEQ/15 ML Soln 15 ML UD Cup PO SCH ×3 (08:19→19:51)
[2018-03-15] MEDS: Cholecalciferol (Vitamin D3) 25 MCG Tab PO SCH (08:20)
[2018-03-15] MEDS: Chlorhexidine Gluconate 0.12% Oral Rinse 15 ML Cup MUCMEM SCH ×2 (08:21→19:51)
[2018-03-15] MEDS: LEVOTHYROXINE SODIUM 137 MCG PO SCH (19:50)
[2018-03-15] MEDS: Clotrimazole 1% Crm 30 GM Tube TOP PRN (19:50)
[2018-03-15] MEDS: buPROPion 100 MG Tab PO SCH (19:51)
[2018-03-15] MEDS: Simvastatin 10 MG Tab PO SCH (19:52)
[2018-03-16] MEDS: Metoclopramide 10 MG Tab PO SCH ×2 (08:19→17:38)
[2018-03-16] MEDS: Citalopram 20 MG Tab PO SCH (08:19)
[2018-03-16] MEDS: Ibuprofen 600 MG Tab PO SCH ×2 (08:20→17:38)
[2018-03-16] MEDS: Fludrocortisone 0.1 MG Tab PO SCH ×2 (08:20→19:57)
[2018-03-16] MEDS: Furosemide 20 MG Tab PO SCH (08:20)
[2018-03-16] MEDS: Albuterol/Ipratropium 3.0-0.5 MG/3 ML Neb Soln NEB SCH ×2 (08:20→20:00)
[2018-03-16] MEDS: Potassium Chloride 10% 20 MEQ/15 ML Soln 15 ML UD Cup PO SCH ×3 (08:21→20:00)
[2018-03-16] MEDS: Niacin 500 MG Tab PO SCH ×2 (08:21→17:38)
[2018-03-16] MEDS: Cholecalciferol (Vitamin D3) 25 MCG Tab PO SCH (08:22)
[2018-03-16] MEDS: Cyanocobalamin (Vitamin B12) 1,000 MCG Tab PO SCH (08:22)
[2018-03-16] MEDS: Chlorhexidine Gluconate 0.12% Oral Rinse 15 ML Cup MUCMEM SCH ×2 (08:23→20:00)
[2018-03-16] MEDS: Clotrimazole 1% Crm 30 GM Tube TOP PRN ×2 (08:31→20:00)
[2018-03-16] MEDS: Simvastatin 10 MG Tab PO SCH (19:57)
[2018-03-16] MEDS: LEVOTHYROXINE SODIUM 137 MCG PO SCH (19:57)
[2018-03-16] MEDS: buPROPion 100 MG Tab PO SCH (19:57)
[2018-03-17] MEDS: Metoclopramide 10 MG Tab PO SCH ×2 (07:35→17:13)
[2018-03-17] MEDS: Albuterol/Ipratropium 3.0-0.5 MG/3 ML Neb Soln NEB SCH ×2 (07:36→19:32)
[2018-03-17] MEDS: Citalopram 20 MG Tab PO SCH (07:36)
[2018-03-17] MEDS: Furosemide 20 MG Tab PO SCH (07:36)
[2018-03-17] MEDS: Ibuprofen 600 MG Tab PO SCH ×2 (07:36→17:13)
[2018-03-17] MEDS: Fludrocortisone 0.1 MG Tab PO SCH ×2 (07:36→19:32)
[2018-03-17] MEDS: Niacin 500 MG Tab PO SCH ×2 (07:37→17:13)
[2018-03-17] MEDS: Potassium Chloride 10% 20 MEQ/15 ML Soln 15 ML UD Cup PO SCH ×3 (07:37→19:33)
[2018-03-17] MEDS: Cyanocobalamin (Vitamin B12) 1,000 MCG Tab PO SCH (07:37)
[2018-03-17] MEDS: Cholecalciferol (Vitamin D3) 25 MCG Tab PO SCH (07:38)
[2018-03-17] MEDS: Clotrimazole 1% Crm 30 GM Tube TOP PRN ×2 (08:11→21:39)
[2018-03-17] MEDS: Chlorhexidine Gluconate 0.12% Oral Rinse 15 ML Cup MUCMEM SCH ×2 (08:12→19:33)
[2018-03-17] MEDS: LEVOTHYROXINE SODIUM 137 MCG PO SCH (19:33)
[2018-03-17] MEDS: Simvastatin 10 MG Tab PO SCH (19:33)
[2018-03-17] MEDS: buPROPion 100 MG Tab PO SCH (19:33)
[2018-03-18] MEDS: Albuterol/Ipratropium 3.0-0.5 MG/3 ML Neb Soln NEB SCH ×2 (08:06→20:01)
[2018-03-18] MEDS: Fludrocortisone 0.1 MG Tab PO SCH ×2 (08:06→20:01)
[2018-03-18] MEDS: Metoclopramide 10 MG Tab PO SCH ×2 (08:06→17:37)
[2018-03-18] MEDS: Citalopram 20 MG Tab PO SCH (08:06)
[2018-03-18] MEDS: Ibuprofen 600 MG Tab PO SCH ×2 (08:08→17:37)
[2018-03-18] MEDS: Furosemide 20 MG Tab PO SCH (08:08)
[2018-03-18] MEDS: Niacin 500 MG Tab PO SCH ×2 (08:08→17:37)
[2018-03-18] MEDS: Cyanocobalamin (Vitamin B12) 1,000 MCG Tab PO SCH (08:09)
[2018-03-18] MEDS: Cholecalciferol (Vitamin D3) 25 MCG Tab PO SCH (08:09)
[2018-03-18] MEDS: Chlorhexidine Gluconate 0.12% Oral Rinse 15 ML Cup MUCMEM SCH ×2 (08:09→20:02)
[2018-03-18] MEDS: Potassium Chloride 10% 20 MEQ/15 ML Soln 15 ML UD Cup PO SCH ×3 (08:10→20:02)
[2018-03-18] MEDS: LEVOTHYROXINE SODIUM 137 MCG PO SCH (20:01)
[2018-03-18] MEDS: Simvastatin 10 MG Tab PO SCH (20:02)
[2018-03-18] MEDS: buPROPion 100 MG Tab PO SCH (20:02)
[2018-03-19] MEDS: Clotrimazole 1% Crm 30 GM Tube TOP PRN ×2 (07:30→19:25)
[2018-03-19] MEDS: Furosemide 20 MG Tab PO SCH (08:01)
[2018-03-19] MEDS: Albuterol/Ipratropium 3.0-0.5 MG/3 ML Neb Soln NEB SCH ×2 (08:01→19:24)
[2018-03-19] MEDS: Fludrocortisone 0.1 MG Tab PO SCH ×2 (08:01→19:24)
[2018-03-19] MEDS: Metoclopramide 10 MG Tab PO SCH ×2 (08:01→18:05)
[2018-03-19] MEDS: Citalopram 20 MG Tab PO SCH (08:01)
[2018-03-19] MEDS: Ibuprofen 600 MG Tab PO SCH ×2 (08:02→18:05)
[2018-03-19] MEDS: Niacin 500 MG Tab PO SCH ×2 (08:02→18:05)
[2018-03-19] MEDS: Potassium Chloride 10% 20 MEQ/15 ML Soln 15 ML UD Cup PO SCH ×3 (08:03→19:26)
[2018-03-19] MEDS: Cholecalciferol (Vitamin D3) 25 MCG Tab PO SCH (08:04)
[2018-03-19] MEDS: Cyanocobalamin (Vitamin B12) 1,000 MCG Tab PO SCH (08:04)
[2018-03-19] MEDS: Chlorhexidine Gluconate 0.12% Oral Rinse 15 ML Cup MUCMEM SCH ×2 (08:05→19:26)
[2018-03-19] MEDS: LEVOTHYROXINE SODIUM 137 MCG PO SCH (19:24)
[2018-03-19] MEDS: buPROPion 100 MG Tab PO SCH (19:24)
[2018-03-19] MEDS: Simvastatin 10 MG Tab PO SCH (19:24)
[2018-03-20] MEDS: Furosemide 20 MG Tab PO SCH (07:20)
[2018-03-20] MEDS: Fludrocortisone 0.1 MG Tab PO SCH ×2 (07:20→19:12)
[2018-03-20] MEDS: Citalopram 20 MG Tab PO SCH (07:20)
[2018-03-20] MEDS: Ibuprofen 600 MG Tab PO SCH ×2 (07:20→17:09)
[2018-03-20] MEDS: Albuterol/Ipratropium 3.0-0.5 MG/3 ML Neb Soln NEB SCH ×2 (07:20→19:12)
[2018-03-20] MEDS: Metoclopramide 10 MG Tab PO SCH ×2 (07:20→17:09)
[2018-03-20] MEDS: Niacin 500 MG Tab PO SCH ×2 (07:21→17:09)
[2018-03-20] MEDS: Potassium Chloride 10% 20 MEQ/15 ML Soln 15 ML UD Cup PO SCH ×3 (07:21→19:11)
[2018-03-20] MEDS: Cyanocobalamin (Vitamin B12) 1,000 MCG Tab PO SCH (07:22)
[2018-03-20] MEDS: Cholecalciferol (Vitamin D3) 25 MCG Tab PO SCH (07:22)
[2018-03-20] MEDS: Chlorhexidine Gluconate 0.12% Oral Rinse 15 ML Cup MUCMEM SCH ×2 (08:31→19:12)
[2018-03-20] MEDS: buPROPion 100 MG Tab PO SCH (19:12)
[2018-03-20] MEDS: LEVOTHYROXINE SODIUM 137 MCG PO SCH (19:12)
[2018-03-20] MEDS: Simvastatin 10 MG Tab PO SCH (19:12)
[2018-03-21] MEDS: Albuterol/Ipratropium 3.0-0.5 MG/3 ML Neb Soln NEB SCH ×2 (07:17→19:16)
[2018-03-21] MEDS: Furosemide 20 MG Tab PO SCH (07:17)
[2018-03-21] MEDS: Citalopram 20 MG Tab PO SCH (07:17)
[2018-03-21] MEDS: Metoclopramide 10 MG Tab PO SCH ×2 (07:17→17:25)
[2018-03-21] MEDS: Fludrocortisone 0.1 MG Tab PO SCH ×2 (07:17→19:16)
[2018-03-21] MEDS: Potassium Chloride 10% 20 MEQ/15 ML Soln 15 ML UD Cup PO SCH ×3 (07:18→19:16)
[2018-03-21] MEDS: Ibuprofen 600 MG Tab PO SCH ×2 (07:18→17:25)
[2018-03-21] MEDS: Niacin 500 MG Tab PO SCH ×2 (07:18→17:25)
[2018-03-21] MEDS: Clotrimazole 1% Crm 30 GM Tube TOP PRN (07:19)
[2018-03-21] MEDS: Cyanocobalamin (Vitamin B12) 1,000 MCG Tab PO SCH (07:19)
[2018-03-21] MEDS: Cholecalciferol (Vitamin D3) 25 MCG Tab PO SCH (07:19)
[2018-03-21] MEDS: Chlorhexidine Gluconate 0.12% Oral Rinse 15 ML Cup MUCMEM SCH ×2 (08:01→19:16)
[2018-03-21] MEDS: Simvastatin 10 MG Tab PO SCH (19:16)
[2018-03-21] MEDS: LEVOTHYROXINE SODIUM 137 MCG PO SCH (19:16)
[2018-03-21] MEDS: buPROPion 100 MG Tab PO SCH (19:16)
[2018-03-22] MEDS: Citalopram 20 MG Tab PO SCH (07:18)
[2018-03-22] MEDS: Metoclopramide 10 MG Tab PO SCH ×2 (07:18→17:12)
[2018-03-22] MEDS: Ibuprofen 600 MG Tab PO SCH ×2 (07:19→17:12)
[2018-03-22] MEDS: Furosemide 20 MG Tab PO SCH (07:19)
[2018-03-22] MEDS: Fludrocortisone 0.1 MG Tab PO SCH ×2 (07:19→19:11)
[2018-03-22] MEDS: Albuterol/Ipratropium 3.0-0.5 MG/3 ML Neb Soln NEB SCH ×2 (07:19→19:12)
[2018-03-22] MEDS: Niacin 500 MG Tab PO SCH ×2 (07:20→17:13)
[2018-03-22] MEDS: Potassium Chloride 10% 20 MEQ/15 ML Soln 15 ML UD Cup PO SCH ×3 (07:20→19:11)
[2018-03-22] MEDS: Cholecalciferol (Vitamin D3) 25 MCG Tab PO SCH (07:21)
[2018-03-22] MEDS: Cyanocobalamin (Vitamin B12) 1,000 MCG Tab PO SCH (07:21)
[2018-03-22] MEDS: Clotrimazole 1% Crm 30 GM Tube TOP PRN (07:21)
[2018-03-22] MEDS: Chlorhexidine Gluconate 0.12% Oral Rinse 15 ML Cup MUCMEM SCH ×2 (08:27→19:12)
[2018-03-22] MEDS: Simvastatin 10 MG Tab PO SCH (19:12)
[2018-03-22] MEDS: LEVOTHYROXINE SODIUM 137 MCG PO SCH (19:12)
[2018-03-22] MEDS: buPROPion 100 MG Tab PO SCH (19:12)
[2018-03-23] MEDS: Citalopram 20 MG Tab PO SCH (07:22)
[2018-03-23] MEDS: Metoclopramide 10 MG Tab PO SCH ×2 (07:22→17:12)
[2018-03-23] MEDS: Furosemide 20 MG Tab PO SCH (07:23)
[2018-03-23] MEDS: Ibuprofen 600 MG Tab PO SCH ×2 (07:23→17:12)
[2018-03-23] MEDS: Fludrocortisone 0.1 MG Tab PO SCH ×2 (07:23→19:18)
[2018-03-23] MEDS: Niacin 500 MG Tab PO SCH ×2 (07:23→17:12)
[2018-03-23] MEDS: Albuterol/Ipratropium 3.0-0.5 MG/3 ML Neb Soln NEB SCH ×2 (07:23→19:18)
[2018-03-23] MEDS: Potassium Chloride 10% 20 MEQ/15 ML Soln 15 ML UD Cup PO SCH ×3 (07:24→19:20)
[2018-03-23] MEDS: Cholecalciferol (Vitamin D3) 25 MCG Tab PO SCH (07:25)
[2018-03-23] MEDS: Cyanocobalamin (Vitamin B12) 1,000 MCG Tab PO SCH (07:25)
[2018-03-23] MEDS: Clotrimazole 1% Crm 30 GM Tube TOP PRN (07:26)
[2018-03-23] MEDS: Chlorhexidine Gluconate 0.12% Oral Rinse 15 ML Cup MUCMEM SCH ×2 (08:08→19:19)
[2018-03-23] MEDS: LEVOTHYROXINE SODIUM 137 MCG PO SCH (19:18)
[2018-03-23] MEDS: Simvastatin 10 MG Tab PO SCH (19:19)
[2018-03-23] MEDS: buPROPion 100 MG Tab PO SCH (19:19)
[2018-03-24] MEDS: Furosemide 20 MG Tab PO SCH (07:20)
[2018-03-24] MEDS: Albuterol/Ipratropium 3.0-0.5 MG/3 ML Neb Soln NEB SCH ×2 (07:20→19:31)
[2018-03-24] MEDS: Fludrocortisone 0.1 MG Tab PO SCH ×2 (07:20→19:31)
[2018-03-24] MEDS: Ibuprofen 600 MG Tab PO SCH ×2 (07:20→17:13)
[2018-03-24] MEDS: Citalopram 20 MG Tab PO SCH (07:20)
[2018-03-24] MEDS: Metoclopramide 10 MG Tab PO SCH ×2 (07:20→17:12)
[2018-03-24] MEDS: Cyanocobalamin (Vitamin B12) 1,000 MCG Tab PO SCH (07:21)
[2018-03-24] MEDS: Potassium Chloride 10% 20 MEQ/15 ML Soln 15 ML UD Cup PO SCH ×3 (07:21→19:32)
[2018-03-24] MEDS: Niacin 500 MG Tab PO SCH ×2 (07:21→17:13)
[2018-03-24] MEDS: Cholecalciferol (Vitamin D3) 25 MCG Tab PO SCH (07:22)
[2018-03-24] MEDS: Chlorhexidine Gluconate 0.12% Oral Rinse 15 ML Cup MUCMEM SCH ×2 (08:02→19:32)
[2018-03-24] MEDS: LEVOTHYROXINE SODIUM 137 MCG PO SCH (19:32)
[2018-03-24] MEDS: buPROPion 100 MG Tab PO SCH (19:33)
[2018-03-24] MEDS: Simvastatin 10 MG Tab PO SCH (19:33)
[2018-03-24] MEDS: Clotrimazole 1% Crm 30 GM Tube TOP PRN (19:40)
[2018-03-25] MEDS: Metoclopramide 10 MG Tab PO SCH ×2 (07:37→17:22)
[2018-03-25] MEDS: Albuterol/Ipratropium 3.0-0.5 MG/3 ML Neb Soln NEB SCH ×2 (07:37→19:22)
[2018-03-25] MEDS: Citalopram 20 MG Tab PO SCH (07:37)
[2018-03-25] MEDS: Fludrocortisone 0.1 MG Tab PO SCH ×2 (07:37→19:22)
[2018-03-25] MEDS: Furosemide 20 MG Tab PO SCH (07:38)
[2018-03-25] MEDS: Niacin 500 MG Tab PO SCH ×2 (07:38→17:22)
[2018-03-25] MEDS: Cyanocobalamin (Vitamin B12) 1,000 MCG Tab PO SCH (07:39)
[2018-03-25] MEDS: Potassium Chloride 10% 20 MEQ/15 ML Soln 15 ML UD Cup PO SCH ×3 (07:39→19:23)
[2018-03-25] MEDS: Cholecalciferol (Vitamin D3) 25 MCG Tab PO SCH (07:39)
[2018-03-25] MEDS: Ibuprofen 600 MG Tab PO SCH ×2 (07:40→17:22)
[2018-03-25] MEDS: Chlorhexidine Gluconate 0.12% Oral Rinse 15 ML Cup MUCMEM SCH ×2 (09:42→19:23)
[2018-03-25] MEDS: LEVOTHYROXINE SODIUM 137 MCG PO SCH (19:22)
[2018-03-25] MEDS: buPROPion 100 MG Tab PO SCH (19:24)
[2018-03-25] MEDS: Simvastatin 10 MG Tab PO SCH (19:24)
[2018-03-26] MEDS: Citalopram 20 MG Tab PO SCH (07:53)
[2018-03-26] MEDS: Fludrocortisone 0.1 MG Tab PO SCH ×2 (07:53→19:29)
[2018-03-26] MEDS: Albuterol/Ipratropium 3.0-0.5 MG/3 ML Neb Soln NEB SCH ×2 (07:54→19:29)
[2018-03-26] MEDS: Ibuprofen 600 MG Tab PO SCH ×2 (07:54→17:57)
[2018-03-26] MEDS: Metoclopramide 10 MG Tab PO SCH ×2 (07:54→17:57)
[2018-03-26] MEDS: Furosemide 20 MG Tab PO SCH (07:54)
[2018-03-26] MEDS: Niacin 500 MG Tab PO SCH ×2 (07:55→17:58)
[2018-03-26] MEDS: Potassium Chloride 10% 20 MEQ/15 ML Soln 15 ML UD Cup PO SCH ×3 (07:55→19:30)
[2018-03-26] MEDS: Cholecalciferol (Vitamin D3) 25 MCG Tab PO SCH (07:56)
[2018-03-26] MEDS: Cyanocobalamin (Vitamin B12) 1,000 MCG Tab PO SCH (07:57)
[2018-03-26] MEDS: Chlorhexidine Gluconate 0.12% Oral Rinse 15 ML Cup MUCMEM SCH ×2 (08:00→19:30)
[2018-03-26] MEDS: LEVOTHYROXINE SODIUM 137 MCG PO SCH (19:29)
[2018-03-26] MEDS: buPROPion 100 MG Tab PO SCH (19:31)
[2018-03-26] MEDS: Simvastatin 10 MG Tab PO SCH (19:31)
[2018-03-27] MEDS: Metoclopramide 10 MG Tab PO SCH ×2 (07:55→17:57)
[2018-03-27] MEDS: Citalopram 20 MG Tab PO SCH (07:56)
[2018-03-27] MEDS: Albuterol/Ipratropium 3.0-0.5 MG/3 ML Neb Soln NEB SCH ×2 (07:56→19:46)
[2018-03-27] MEDS: Fludrocortisone 0.1 MG Tab PO SCH ×2 (07:56→19:46)
[2018-03-27] MEDS: Ibuprofen 600 MG Tab PO SCH ×2 (07:57→17:57)
[2018-03-27] MEDS: Furosemide 20 MG Tab PO SCH (07:57)
[2018-03-27] MEDS: Niacin 500 MG Tab PO SCH ×2 (07:58→17:58)
[2018-03-27] MEDS: Potassium Chloride 10% 20 MEQ/15 ML Soln 15 ML UD Cup PO SCH ×3 (07:59→19:47)
[2018-03-27] MEDS: Cyanocobalamin (Vitamin B12) 1,000 MCG Tab PO SCH (07:59)
[2018-03-27] MEDS: Cholecalciferol (Vitamin D3) 25 MCG Tab PO SCH (07:59)
[2018-03-27] MEDS: Chlorhexidine Gluconate 0.12% Oral Rinse 15 ML Cup MUCMEM SCH ×2 (08:00→19:47)
[2018-03-27] MEDS: Acetaminophen 325 MG Tab PO PRN (12:59)
[2018-03-27] MEDS: LEVOTHYROXINE SODIUM 137 MCG PO SCH (19:46)
[2018-03-27] MEDS: buPROPion 100 MG Tab PO SCH (19:48)
[2018-03-27] MEDS: Simvastatin 10 MG Tab PO SCH (19:48)
[2018-03-28] MEDS: Citalopram 20 MG Tab PO SCH (07:27)
[2018-03-28] MEDS: Fludrocortisone 0.1 MG Tab PO SCH ×2 (07:27→20:03)
[2018-03-28] MEDS: Metoclopramide 10 MG Tab PO SCH ×2 (07:27→17:33)
[2018-03-28] MEDS: Niacin 500 MG Tab PO SCH ×2 (07:28→17:33)
[2018-03-28] MEDS: Furosemide 20 MG Tab PO SCH (07:28)
[2018-03-28] MEDS: Albuterol/Ipratropium 3.0-0.5 MG/3 ML Neb Soln NEB SCH ×2 (07:28→20:03)
[2018-03-28] MEDS: Ibuprofen 600 MG Tab PO SCH ×2 (07:28→17:33)
[2018-03-28] MEDS: Potassium Chloride 10% 20 MEQ/15 ML Soln 15 ML UD Cup PO SCH ×3 (07:29→20:03)
[2018-03-28] MEDS: Cyanocobalamin (Vitamin B12) 1,000 MCG Tab PO SCH (07:29)
[2018-03-28] MEDS: Cholecalciferol (Vitamin D3) 25 MCG Tab PO SCH (07:30)
[2018-03-28] MEDS: Chlorhexidine Gluconate 0.12% Oral Rinse 15 ML Cup MUCMEM SCH ×2 (08:04→20:03)
[2018-03-28] MEDS: Clotrimazole 1% Crm 30 GM Tube TOP PRN ×2 (08:05→20:08)
[2018-03-28] MEDS: LEVOTHYROXINE SODIUM 137 MCG PO SCH (20:03)
[2018-03-28] MEDS: buPROPion 100 MG Tab PO SCH (20:04)
[2018-03-28] MEDS: Simvastatin 10 MG Tab PO SCH (20:04)
[2018-03-29] MEDS: Metoclopramide 10 MG Tab PO SCH ×2 (07:56→17:21)
[2018-03-29] MEDS: Albuterol/Ipratropium 3.0-0.5 MG/3 ML Neb Soln NEB SCH ×2 (07:56→19:59)
[2018-03-29] MEDS: Citalopram 20 MG Tab PO SCH (07:56)
[2018-03-29] MEDS: Fludrocortisone 0.1 MG Tab PO SCH ×2 (07:57→19:59)
[2018-03-29] MEDS: Ibuprofen 600 MG Tab PO SCH ×2 (07:57→17:21)
[2018-03-29] MEDS: Furosemide 20 MG Tab PO SCH (07:57)
[2018-03-29] MEDS: Potassium Chloride 10% 20 MEQ/15 ML Soln 15 ML UD Cup PO SCH ×3 (07:58→20:00)
[2018-03-29] MEDS: Niacin 500 MG Tab PO SCH ×2 (07:58→17:22)
[2018-03-29] MEDS: Cholecalciferol (Vitamin D3) 25 MCG Tab PO SCH (07:59)
[2018-03-29] MEDS: Chlorhexidine Gluconate 0.12% Oral Rinse 15 ML Cup MUCMEM SCH ×2 (07:59→20:00)
[2018-03-29] MEDS: Cyanocobalamin (Vitamin B12) 1,000 MCG Tab PO SCH (07:59)
[2018-03-29] MEDS: Clotrimazole 1% Crm 30 GM Tube TOP PRN ×2 (08:00→20:01)
[2018-03-29] MEDS: LEVOTHYROXINE SODIUM 137 MCG PO SCH (20:00)
[2018-03-29] MEDS: buPROPion 100 MG Tab PO SCH (20:00)
[2018-03-29] MEDS: Simvastatin 10 MG Tab PO SCH (20:01)
[2018-03-30] MEDS: Metoclopramide 10 MG Tab PO SCH (07:27)
[2018-03-30] MEDS: Citalopram 20 MG Tab PO SCH (07:27)
[2018-03-30] MEDS: Albuterol/Ipratropium 3.0-0.5 MG/3 ML Neb Soln NEB SCH (07:28)
[2018-03-30] MEDS: Furosemide 20 MG Tab PO SCH (07:28)
[2018-03-30] MEDS: Ibuprofen 600 MG Tab PO SCH (07:28)
[2018-03-30] MEDS: Fludrocortisone 0.1 MG Tab PO SCH (07:28)
[2018-03-30] MEDS: Niacin 500 MG Tab PO SCH (07:28)
[2018-03-30] MEDS: Cyanocobalamin (Vitamin B12) 1,000 MCG Tab PO SCH (07:29)
[2018-03-30] MEDS: Cholecalciferol (Vitamin D3) 25 MCG Tab PO SCH (07:29)
[2018-03-30] MEDS: Potassium Chloride 10% 20 MEQ/15 ML Soln 15 ML UD Cup PO SCH ×2 (07:29→13:14)
[2018-03-30] MEDS: Chlorhexidine Gluconate 0.12% Oral Rinse 15 ML Cup MUCMEM SCH (08:20)
[2018-03-31] MEDS: Albuterol/Ipratropium 3.0-0.5 MG/3 ML Neb Soln NEB SCH ×3 (03:22→19:33)
[2018-03-31] MEDS: Niacin 500 MG Tab PO SCH ×3 (03:22→17:10)
[2018-03-31] MEDS: Fludrocortisone 0.1 MG Tab PO SCH ×3 (03:22→19:33)
[2018-03-31] MEDS: Metoclopramide 10 MG Tab PO SCH ×3 (03:22→17:10)
[2018-03-31] MEDS: LEVOTHYROXINE SODIUM 137 MCG PO SCH ×2 (03:22→19:33)
[2018-03-31] MEDS: Chlorhexidine Gluconate 0.12% Oral Rinse 15 ML Cup MUCMEM SCH ×3 (03:22→19:34)
[2018-03-31] MEDS: Ibuprofen 600 MG Tab PO SCH ×3 (03:22→17:10)
[2018-03-31] MEDS: Potassium Chloride 10% 20 MEQ/15 ML Soln 15 ML UD Cup PO SCH ×4 (03:23→19:34)
[2018-03-31] MEDS: Simvastatin 10 MG Tab PO SCH ×2 (03:23→19:35)
[2018-03-31] MEDS: buPROPion 100 MG Tab PO SCH ×2 (03:23→19:34)
[2018-03-31] MEDS: Furosemide 20 MG Tab PO SCH (07:16)
[2018-03-31] MEDS: Citalopram 20 MG Tab PO SCH (07:16)
[2018-03-31] MEDS: Cholecalciferol (Vitamin D3) 25 MCG Tab PO SCH (07:19)
[2018-03-31] MEDS: Cyanocobalamin (Vitamin B12) 1,000 MCG Tab PO SCH (07:19)
[2018-04-01] MEDS: Metoclopramide 10 MG Tab PO SCH ×2 (08:22→18:10)
[2018-04-01] MEDS: Ibuprofen 600 MG Tab PO SCH ×2 (08:22→18:08)
[2018-04-01] MEDS: Citalopram 20 MG Tab PO SCH (08:22)
[2018-04-01] MEDS: Fludrocortisone 0.1 MG Tab PO SCH ×2 (08:23→19:22)
[2018-04-01] MEDS: Furosemide 20 MG Tab PO SCH (08:24)
[2018-04-01] MEDS: Albuterol/Ipratropium 3.0-0.5 MG/3 ML Neb Soln NEB SCH ×2 (08:27→19:21)
[2018-04-01] MEDS: Niacin 500 MG Tab PO SCH ×2 (08:28→18:11)
[2018-04-01] MEDS: Chlorhexidine Gluconate 0.12% Oral Rinse 15 ML Cup MUCMEM SCH ×2 (08:31→19:23)
[2018-04-01] MEDS: Potassium Chloride 10% 20 MEQ/15 ML Soln 15 ML UD Cup PO SCH ×3 (08:31→19:23)
[2018-04-01] MEDS: Cholecalciferol (Vitamin D3) 25 MCG Tab PO SCH (08:33)
[2018-04-01] MEDS: Cyanocobalamin (Vitamin B12) 1,000 MCG Tab PO SCH (08:34)
[2018-04-01] MEDS: buPROPion 100 MG Tab PO SCH (19:22)
[2018-04-01] MEDS: Simvastatin 10 MG Tab PO SCH (19:22)
[2018-04-01] MEDS: LEVOTHYROXINE SODIUM 137 MCG PO SCH (19:22)
[2018-04-02] MEDS: Furosemide 20 MG Tab PO SCH (07:19)
[2018-04-02] MEDS: Albuterol/Ipratropium 3.0-0.5 MG/3 ML Neb Soln NEB SCH ×2 (07:19→19:14)
[2018-04-02] MEDS: Fludrocortisone 0.1 MG Tab PO SCH ×2 (07:19→19:13)
[2018-04-02] MEDS: Ibuprofen 600 MG Tab PO SCH ×2 (07:19→17:27)
[2018-04-02] MEDS: Metoclopramide 10 MG Tab PO SCH ×2 (07:19→17:27)
[2018-04-02] MEDS: Citalopram 20 MG Tab PO SCH (07:19)
[2018-04-02] MEDS: Potassium Chloride 10% 20 MEQ/15 ML Soln 15 ML UD Cup PO SCH ×3 (07:20→19:13)
[2018-04-02] MEDS: Niacin 500 MG Tab PO SCH ×2 (07:20→17:27)
[2018-04-02] MEDS: Cyanocobalamin (Vitamin B12) 1,000 MCG Tab PO SCH (07:20)
[2018-04-02] MEDS: Cholecalciferol (Vitamin D3) 25 MCG Tab PO SCH (07:21)
[2018-04-02] MEDS: Chlorhexidine Gluconate 0.12% Oral Rinse 15 ML Cup MUCMEM SCH ×2 (08:55→19:14)
[2018-04-02] MEDS: LEVOTHYROXINE SODIUM 137 MCG PO SCH (19:13)
[2018-04-02] MEDS: Simvastatin 10 MG Tab PO SCH (19:13)
[2018-04-02] MEDS: buPROPion 100 MG Tab PO SCH (19:13)
[2018-04-03] MEDS: Citalopram 20 MG Tab PO SCH (08:22)
[2018-04-03] MEDS: Metoclopramide 10 MG Tab PO SCH ×2 (08:22→17:35)
[2018-04-03] MEDS: Fludrocortisone 0.1 MG Tab PO SCH ×2 (08:22→19:22)
[2018-04-03] MEDS: Ibuprofen 600 MG Tab PO SCH ×2 (08:23→17:35)
[2018-04-03] MEDS: Furosemide 20 MG Tab PO SCH (08:23)
[2018-04-03] MEDS: Niacin 500 MG Tab PO SCH ×2 (08:24→17:36)
[2018-04-03] MEDS: Albuterol/Ipratropium 3.0-0.5 MG/3 ML Neb Soln NEB SCH ×2 (08:24→19:22)
[2018-04-03] MEDS: Potassium Chloride 10% 20 MEQ/15 ML Soln 15 ML UD Cup PO SCH ×3 (08:25→19:23)
[2018-04-03] MEDS: Cyanocobalamin (Vitamin B12) 1,000 MCG Tab PO SCH (08:26)
[2018-04-03] MEDS: Chlorhexidine Gluconate 0.12% Oral Rinse 15 ML Cup MUCMEM SCH ×2 (08:26→19:23)
[2018-04-03] MEDS: Cholecalciferol (Vitamin D3) 25 MCG Tab PO SCH (08:26)
[2018-04-03] MEDS: LEVOTHYROXINE SODIUM 137 MCG PO SCH (19:23)
[2018-04-03] MEDS: Simvastatin 10 MG Tab PO SCH (19:24)
[2018-04-03] MEDS: buPROPion 100 MG Tab PO SCH (19:24)
[2018-04-04] MEDS: Citalopram 20 MG Tab PO SCH (08:24)
[2018-04-04] MEDS: Metoclopramide 10 MG Tab PO SCH ×2 (08:24→18:10)
[2018-04-04] MEDS: Albuterol/Ipratropium 3.0-0.5 MG/3 ML Neb Soln NEB SCH ×2 (08:24→19:26)
[2018-04-04] MEDS: Fludrocortisone 0.1 MG Tab PO SCH ×2 (08:25→19:27)
[2018-04-04] MEDS: Ibuprofen 600 MG Tab PO SCH ×2 (08:25→18:10)
[2018-04-04] MEDS: Furosemide 20 MG Tab PO SCH (08:25)
[2018-04-04] MEDS: Cyanocobalamin (Vitamin B12) 1,000 MCG Tab PO SCH (08:26)
[2018-04-04] MEDS: Niacin 500 MG Tab PO SCH ×2 (08:26→18:10)
[2018-04-04] MEDS: Potassium Chloride 10% 20 MEQ/15 ML Soln 15 ML UD Cup PO SCH ×3 (08:26→19:28)
[2018-04-04] MEDS: Cholecalciferol (Vitamin D3) 25 MCG Tab PO SCH (08:27)
[2018-04-04] MEDS: Chlorhexidine Gluconate 0.12% Oral Rinse 15 ML Cup MUCMEM SCH ×2 (08:33→19:27)
[2018-04-04] MEDS: LEVOTHYROXINE SODIUM 137 MCG PO SCH (19:27)
[2018-04-04] MEDS: buPROPion 100 MG Tab PO SCH (19:28)
[2018-04-04] MEDS: Simvastatin 10 MG Tab PO SCH (19:29)
[2018-04-04] MEDS: Acetaminophen 325 MG Tab PO PRN (19:30)
[2018-04-05] MEDS: Citalopram 20 MG Tab PO SCH (07:27)
[2018-04-05] MEDS: Metoclopramide 10 MG Tab PO SCH ×2 (07:27→17:20)
[2018-04-05] MEDS: Fludrocortisone 0.1 MG Tab PO SCH ×2 (07:28→19:37)
[2018-04-05] MEDS: Albuterol/Ipratropium 3.0-0.5 MG/3 ML Neb Soln NEB SCH ×2 (07:28→19:37)
[2018-04-05] MEDS: Furosemide 20 MG Tab PO SCH (07:28)
[2018-04-05] MEDS: Ibuprofen 600 MG Tab PO SCH ×2 (07:28→17:21)
[2018-04-05] MEDS: Potassium Chloride 10% 20 MEQ/15 ML Soln 15 ML UD Cup PO SCH ×3 (07:29→19:38)
[2018-04-05] MEDS: Niacin 500 MG Tab PO SCH ×2 (07:29→17:22)
[2018-04-05] MEDS: Cyanocobalamin (Vitamin B12) 1,000 MCG Tab PO SCH (07:30)
[2018-04-05] MEDS: Cholecalciferol (Vitamin D3) 25 MCG Tab PO SCH (07:30)
[2018-04-05] MEDS: Chlorhexidine Gluconate 0.12% Oral Rinse 15 ML Cup MUCMEM SCH ×2 (08:34→19:37)
[2018-04-05] MEDS: LEVOTHYROXINE SODIUM 137 MCG PO SCH (19:37)
[2018-04-05] MEDS: buPROPion 100 MG Tab PO SCH (19:39)
[2018-04-05] MEDS: Simvastatin 10 MG Tab PO SCH (19:39)
[2018-04-06] MEDS: Ibuprofen 600 MG Tab PO SCH ×2 (08:03→17:51)
[2018-04-06] MEDS: Furosemide 20 MG Tab PO SCH (08:04)
[2018-04-06] MEDS: Citalopram 20 MG Tab PO SCH (08:04)
[2018-04-06] MEDS: Fludrocortisone 0.1 MG Tab PO SCH ×2 (08:04→19:27)
[2018-04-06] MEDS: Chlorhexidine Gluconate 0.12% Oral Rinse 15 ML Cup MUCMEM SCH ×2 (08:05→19:28)
[2018-04-06] MEDS: Albuterol/Ipratropium 3.0-0.5 MG/3 ML Neb Soln NEB SCH ×2 (08:05→19:27)
[2018-04-06] MEDS: Potassium Chloride 10% 20 MEQ/15 ML Soln 15 ML UD Cup PO SCH ×3 (08:05→19:28)
[2018-04-06] MEDS: Metoclopramide 10 MG Tab PO SCH ×2 (08:05→17:52)
[2018-04-06] MEDS: Niacin 500 MG Tab PO SCH ×2 (08:06→17:52)
[2018-04-06] MEDS: Cholecalciferol (Vitamin D3) 25 MCG Tab PO SCH (08:07)
[2018-04-06] MEDS: Cyanocobalamin (Vitamin B12) 1,000 MCG Tab PO SCH (08:07)
[2018-04-06] MEDS: buPROPion 100 MG Tab PO SCH (19:27)
[2018-04-06] MEDS: Simvastatin 10 MG Tab PO SCH (19:27)
[2018-04-06] MEDS: LEVOTHYROXINE SODIUM 137 MCG PO SCH (19:27)
[2018-04-07] MEDS: Citalopram 20 MG Tab PO SCH (07:23)
[2018-04-07] MEDS: Metoclopramide 10 MG Tab PO SCH ×2 (07:23→17:11)
[2018-04-07] MEDS: Fludrocortisone 0.1 MG Tab PO SCH ×2 (07:24→19:18)
[2018-04-07] MEDS: Furosemide 20 MG Tab PO SCH (07:24)
[2018-04-07] MEDS: Niacin 500 MG Tab PO SCH ×2 (07:24→17:11)
[2018-04-07] MEDS: Albuterol/Ipratropium 3.0-0.5 MG/3 ML Neb Soln NEB SCH ×2 (07:24→19:18)
[2018-04-07] MEDS: Ibuprofen 600 MG Tab PO SCH ×2 (07:24→17:11)
[2018-04-07] MEDS: Potassium Chloride 10% 20 MEQ/15 ML Soln 15 ML UD Cup PO SCH ×3 (07:25→19:20)
[2018-04-07] MEDS: Cyanocobalamin (Vitamin B12) 1,000 MCG Tab PO SCH (07:25)
[2018-04-07] MEDS: Cholecalciferol (Vitamin D3) 25 MCG Tab PO SCH (07:25)
[2018-04-07] MEDS: Chlorhexidine Gluconate 0.12% Oral Rinse 15 ML Cup MUCMEM SCH ×2 (08:01→19:19)
[2018-04-07] MEDS: Simvastatin 10 MG Tab PO SCH (19:19)
[2018-04-07] MEDS: buPROPion 100 MG Tab PO SCH (19:19)
[2018-04-07] MEDS: LEVOTHYROXINE SODIUM 137 MCG PO SCH (19:19)
[2018-04-07] MEDS: Acetaminophen 325 MG Tab PO PRN (19:24)
[2018-04-08] MEDS: Metoclopramide 10 MG Tab PO SCH ×2 (08:27→17:29)
[2018-04-08] MEDS: Citalopram 20 MG Tab PO SCH (08:27)
[2018-04-08] MEDS: Fludrocortisone 0.1 MG Tab PO SCH ×2 (08:27→19:34)
[2018-04-08] MEDS: Furosemide 20 MG Tab PO SCH (08:28)
[2018-04-08] MEDS: Ibuprofen 600 MG Tab PO SCH ×2 (08:28→17:29)
[2018-04-08] MEDS: Niacin 500 MG Tab PO SCH ×2 (08:30→17:29)
[2018-04-08] MEDS: Albuterol/Ipratropium 3.0-0.5 MG/3 ML Neb Soln NEB SCH ×2 (08:30→19:33)
[2018-04-08] MEDS: Potassium Chloride 10% 20 MEQ/15 ML Soln 15 ML UD Cup PO SCH ×3 (08:32→19:35)
[2018-04-08] MEDS: Cyanocobalamin (Vitamin B12) 1,000 MCG Tab PO SCH (08:33)
[2018-04-08] MEDS: Cholecalciferol (Vitamin D3) 25 MCG Tab PO SCH (08:33)
[2018-04-08] MEDS: Chlorhexidine Gluconate 0.12% Oral Rinse 15 ML Cup MUCMEM SCH ×2 (08:34→19:34)
[2018-04-08] MEDS: LEVOTHYROXINE SODIUM 137 MCG PO SCH (19:34)
[2018-04-08] MEDS: Simvastatin 10 MG Tab PO SCH (19:35)
[2018-04-08] MEDS: buPROPion 100 MG Tab PO SCH (19:35)
[2018-04-09] MEDS: Acetaminophen 325 MG Tab PO PRN (01:25)
[2018-04-09] MEDS: Citalopram 20 MG Tab PO SCH (08:09)
[2018-04-09] MEDS: Fludrocortisone 0.1 MG Tab PO SCH ×2 (08:09→19:42)
[2018-04-09] MEDS: Albuterol/Ipratropium 3.0-0.5 MG/3 ML Neb Soln NEB SCH ×2 (08:09→19:40)
[2018-04-09] MEDS: Ibuprofen 600 MG Tab PO SCH ×2 (08:09→18:00)
[2018-04-09] MEDS: Furosemide 20 MG Tab PO SCH (08:09)
[2018-04-09] MEDS: Metoclopramide 10 MG Tab PO SCH ×2 (08:09→18:00)
[2018-04-09] MEDS: Niacin 500 MG Tab PO SCH ×2 (08:10→18:01)
[2018-04-09] MEDS: Potassium Chloride 10% 20 MEQ/15 ML Soln 15 ML UD Cup PO SCH ×3 (08:13→19:43)
[2018-04-09] MEDS: Cyanocobalamin (Vitamin B12) 1,000 MCG Tab PO SCH (08:14)
[2018-04-09] MEDS: Chlorhexidine Gluconate 0.12% Oral Rinse 15 ML Cup MUCMEM SCH ×2 (08:15→19:43)
[2018-04-09] MEDS: Cholecalciferol (Vitamin D3) 25 MCG Tab PO SCH (08:15)
[2018-04-09] MEDS: LEVOTHYROXINE SODIUM 137 MCG PO SCH (19:42)
[2018-04-09] MEDS: buPROPion 100 MG Tab PO SCH (19:44)
[2018-04-09] MEDS: Simvastatin 10 MG Tab PO SCH (19:44)
[2018-04-10] MEDS: Citalopram 20 MG Tab PO SCH (07:12)
[2018-04-10] MEDS: Albuterol/Ipratropium 3.0-0.5 MG/3 ML Neb Soln NEB SCH ×2 (07:12→19:23)
[2018-04-10] MEDS: Ibuprofen 600 MG Tab PO SCH ×2 (07:12→17:46)
[2018-04-10] MEDS: Fludrocortisone 0.1 MG Tab PO SCH ×2 (07:12→19:23)
[2018-04-10] MEDS: Furosemide 20 MG Tab PO SCH (07:12)
[2018-04-10] MEDS: Metoclopramide 10 MG Tab PO SCH ×2 (07:12→17:46)
[2018-04-10] MEDS: Niacin 500 MG Tab PO SCH ×2 (07:13→17:47)
[2018-04-10] MEDS: Potassium Chloride 10% 20 MEQ/15 ML Soln 15 ML UD Cup PO SCH ×3 (07:13→19:22)
[2018-04-10] MEDS: Cyanocobalamin (Vitamin B12) 1,000 MCG Tab PO SCH (07:13)
[2018-04-10] MEDS: Cholecalciferol (Vitamin D3) 25 MCG Tab PO SCH (07:14)
[2018-04-10] MEDS: Chlorhexidine Gluconate 0.12% Oral Rinse 15 ML Cup MUCMEM SCH ×2 (08:00→19:23)
[2018-04-10] MEDS: Simvastatin 10 MG Tab PO SCH (19:22)
[2018-04-10] MEDS: LEVOTHYROXINE SODIUM 137 MCG PO SCH (19:23)
[2018-04-10] MEDS: buPROPion 100 MG Tab PO SCH (19:23)
[2018-04-11] MEDS: Metoclopramide 10 MG Tab PO SCH ×2 (07:29→17:07)
[2018-04-11] MEDS: Citalopram 20 MG Tab PO SCH (07:29)
[2018-04-11] MEDS: Albuterol/Ipratropium 3.0-0.5 MG/3 ML Neb Soln NEB SCH ×2 (07:29→19:22)
[2018-04-11] MEDS: Fludrocortisone 0.1 MG Tab PO SCH ×2 (07:29→19:21)
[2018-04-11] MEDS: Potassium Chloride 10% 20 MEQ/15 ML Soln 15 ML UD Cup PO SCH ×3 (07:30→19:21)
[2018-04-11] MEDS: Niacin 500 MG Tab PO SCH ×2 (07:30→17:08)
[2018-04-11] MEDS: Ibuprofen 600 MG Tab PO SCH ×2 (07:30→17:07)
[2018-04-11] MEDS: Furosemide 20 MG Tab PO SCH (07:30)
[2018-04-11] MEDS: Cholecalciferol (Vitamin D3) 25 MCG Tab PO SCH (07:31)
[2018-04-11] MEDS: Cyanocobalamin (Vitamin B12) 1,000 MCG Tab PO SCH (07:31)
[2018-04-11] MEDS: Chlorhexidine Gluconate 0.12% Oral Rinse 15 ML Cup MUCMEM SCH ×2 (08:00→19:22)
[2018-04-11] MEDS: Simvastatin 10 MG Tab PO SCH (19:20)
[2018-04-11] MEDS: LEVOTHYROXINE SODIUM 137 MCG PO SCH (19:21)
[2018-04-11] MEDS: buPROPion 100 MG Tab PO SCH (19:34)
[2018-04-12] MEDS: Ibuprofen 600 MG Tab PO SCH ×2 (07:13→17:17)
[2018-04-12] MEDS: Metoclopramide 10 MG Tab PO SCH ×2 (07:13→17:17)
[2018-04-12] MEDS: Citalopram 20 MG Tab PO SCH (07:13)
[2018-04-12] MEDS: Furosemide 20 MG Tab PO SCH (07:13)
[2018-04-12] MEDS: Albuterol/Ipratropium 3.0-0.5 MG/3 ML Neb Soln NEB SCH ×2 (07:13→19:34)
[2018-04-12] MEDS: Fludrocortisone 0.1 MG Tab PO SCH ×2 (07:13→19:34)
[2018-04-12] MEDS: Potassium Chloride 10% 20 MEQ/15 ML Soln 15 ML UD Cup PO SCH ×3 (07:14→19:35)
[2018-04-12] MEDS: Niacin 500 MG Tab PO SCH ×2 (07:14→17:17)
[2018-04-12] MEDS: Cholecalciferol (Vitamin D3) 25 MCG Tab PO SCH (07:15)
[2018-04-12] MEDS: Cyanocobalamin (Vitamin B12) 1,000 MCG Tab PO SCH (07:15)
[2018-04-12] MEDS: Chlorhexidine Gluconate 0.12% Oral Rinse 15 ML Cup MUCMEM SCH ×2 (08:00→19:35)
[2018-04-12] MEDS: Acetaminophen 325 MG Tab PO PRN (18:22)
[2018-04-12] MEDS: traMADol 50 MG Tab PO PRN (18:23)
[2018-04-12] MEDS: Simvastatin 10 MG Tab PO SCH (19:35)
[2018-04-12] MEDS: buPROPion 100 MG Tab PO SCH (19:35)
[2018-04-12] MEDS: LEVOTHYROXINE SODIUM 137 MCG PO SCH (19:35)
[2018-04-13] MEDS: Metoclopramide 10 MG Tab PO SCH ×2 (07:51→18:08)
[2018-04-13] MEDS: Citalopram 20 MG Tab PO SCH (07:52)
[2018-04-13] MEDS: Furosemide 20 MG Tab PO SCH (07:52)
[2018-04-13] MEDS: Albuterol/Ipratropium 3.0-0.5 MG/3 ML Neb Soln NEB SCH ×2 (07:52→19:29)
[2018-04-13] MEDS: Ibuprofen 600 MG Tab PO SCH ×2 (07:52→18:08)
[2018-04-13] MEDS: Fludrocortisone 0.1 MG Tab PO SCH ×2 (07:52→19:28)
[2018-04-13] MEDS: Niacin 500 MG Tab PO SCH ×2 (07:53→18:08)
[2018-04-13] MEDS: Cyanocobalamin (Vitamin B12) 1,000 MCG Tab PO SCH (07:54)
[2018-04-13] MEDS: Cholecalciferol (Vitamin D3) 25 MCG Tab PO SCH (07:54)
[2018-04-13] MEDS: Potassium Chloride 10% 20 MEQ/15 ML Soln 15 ML UD Cup PO SCH ×3 (07:55→19:29)
[2018-04-13] MEDS: Chlorhexidine Gluconate 0.12% Oral Rinse 15 ML Cup MUCMEM SCH ×2 (08:01→19:29)
[2018-04-13] MEDS: LEVOTHYROXINE SODIUM 137 MCG PO SCH (19:28)
[2018-04-13] MEDS: buPROPion 100 MG Tab PO SCH (19:28)
[2018-04-13] MEDS: Simvastatin 10 MG Tab PO SCH (19:28)
[2018-04-13] MEDS: Acetaminophen 325 MG Tab PO PRN (19:32)
[2018-04-13] MEDS: traMADol 50 MG Tab PO PRN (19:34)
[2018-04-14] MEDS: Acetaminophen 325 MG Tab PO PRN (02:06)
[2018-04-14] MEDS: traMADol 50 MG Tab PO PRN (02:07)
[2018-04-14] MEDS: Fludrocortisone 0.1 MG Tab PO SCH ×2 (07:21→19:20)
[2018-04-14] MEDS: Metoclopramide 10 MG Tab PO SCH ×2 (07:21→18:05)
[2018-04-14] MEDS: Citalopram 20 MG Tab PO SCH (07:21)
[2018-04-14] MEDS: Albuterol/Ipratropium 3.0-0.5 MG/3 ML Neb Soln NEB SCH ×2 (07:21→19:20)
[2018-04-14] MEDS: Furosemide 20 MG Tab PO SCH (07:21)
[2018-04-14] MEDS: Ibuprofen 600 MG Tab PO SCH ×2 (07:21→18:05)
[2018-04-14] MEDS: Niacin 500 MG Tab PO SCH ×2 (07:22→18:04)
[2018-04-14] MEDS: Potassium Chloride 10% 20 MEQ/15 ML Soln 15 ML UD Cup PO SCH ×3 (07:22→19:22)
[2018-04-14] MEDS: Cyanocobalamin (Vitamin B12) 1,000 MCG Tab PO SCH (07:23)
[2018-04-14] MEDS: Cholecalciferol (Vitamin D3) 25 MCG Tab PO SCH (07:23)
[2018-04-14] MEDS: Chlorhexidine Gluconate 0.12% Oral Rinse 15 ML Cup MUCMEM SCH ×2 (08:07→19:21)
[2018-04-14] MEDS: buPROPion 100 MG Tab PO SCH (19:21)
[2018-04-14] MEDS: Simvastatin 10 MG Tab PO SCH (19:21)
[2018-04-14] MEDS: LEVOTHYROXINE SODIUM 137 MCG PO SCH (19:21)
[2018-04-15] MEDS: Furosemide 20 MG Tab PO SCH (07:25)
[2018-04-15] MEDS: Fludrocortisone 0.1 MG Tab PO SCH ×2 (07:25→19:13)
[2018-04-15] MEDS: Ibuprofen 600 MG Tab PO SCH ×2 (07:25→17:09)
[2018-04-15] MEDS: Albuterol/Ipratropium 3.0-0.5 MG/3 ML Neb Soln NEB SCH ×2 (07:25→19:13)
[2018-04-15] MEDS: Metoclopramide 10 MG Tab PO SCH ×2 (07:25→17:08)
[2018-04-15] MEDS: Citalopram 20 MG Tab PO SCH (07:25)
[2018-04-15] MEDS: Niacin 500 MG Tab PO SCH ×2 (07:26→17:11)
[2018-04-15] MEDS: Potassium Chloride 10% 20 MEQ/15 ML Soln 15 ML UD Cup PO SCH ×3 (07:26→19:12)
[2018-04-15] MEDS: Cyanocobalamin (Vitamin B12) 1,000 MCG Tab PO SCH (07:27)
[2018-04-15] MEDS: Cholecalciferol (Vitamin D3) 25 MCG Tab PO SCH (07:27)
[2018-04-15] MEDS: Chlorhexidine Gluconate 0.12% Oral Rinse 15 ML Cup MUCMEM SCH ×2 (08:00→19:13)
[2018-04-15] MEDS: Acetaminophen 325 MG Tab PO PRN (17:09)
[2018-04-15] MEDS: traMADol 50 MG Tab PO PRN (17:10)
[2018-04-15] MEDS: LEVOTHYROXINE SODIUM 137 MCG PO SCH (19:13)
[2018-04-15] MEDS: buPROPion 100 MG Tab PO SCH (19:13)
[2018-04-15] MEDS: Simvastatin 10 MG Tab PO SCH (19:13)
[2018-04-16] MEDS: Citalopram 20 MG Tab PO SCH (07:52)
[2018-04-16] MEDS: Metoclopramide 10 MG Tab PO SCH ×2 (07:52→17:38)
[2018-04-16] MEDS: Albuterol/Ipratropium 3.0-0.5 MG/3 ML Neb Soln NEB SCH ×2 (07:52→19:26)
[2018-04-16] MEDS: Fludrocortisone 0.1 MG Tab PO SCH ×2 (07:52→19:27)
[2018-04-16] MEDS: Ibuprofen 600 MG Tab PO SCH ×2 (07:53→17:38)
[2018-04-16] MEDS: Furosemide 20 MG Tab PO SCH (07:53)
[2018-04-16] MEDS: Niacin 500 MG Tab PO SCH ×2 (07:53→17:39)
[2018-04-16] MEDS: Potassium Chloride 10% 20 MEQ/15 ML Soln 15 ML UD Cup PO SCH ×3 (07:54→19:28)
[2018-04-16] MEDS: Cholecalciferol (Vitamin D3) 25 MCG Tab PO SCH (07:54)
[2018-04-16] MEDS: Cyanocobalamin (Vitamin B12) 1,000 MCG Tab PO SCH (07:54)
[2018-04-16] MEDS: Chlorhexidine Gluconate 0.12% Oral Rinse 15 ML Cup MUCMEM SCH ×2 (07:59→19:27)
[2018-04-16] MEDS: LEVOTHYROXINE SODIUM 137 MCG PO SCH (19:27)
[2018-04-16] MEDS: buPROPion 100 MG Tab PO SCH (19:28)
[2018-04-16] MEDS: Simvastatin 10 MG Tab PO SCH (19:28)
[2018-04-17] MEDS: Furosemide 20 MG Tab PO SCH (07:44)
[2018-04-17] MEDS: Albuterol/Ipratropium 3.0-0.5 MG/3 ML Neb Soln NEB SCH ×2 (07:44→20:08)
[2018-04-17] MEDS: Fludrocortisone 0.1 MG Tab PO SCH ×2 (07:44→20:08)
[2018-04-17] MEDS: Citalopram 20 MG Tab PO SCH (07:44)
[2018-04-17] MEDS: Ibuprofen 600 MG Tab PO SCH ×2 (07:44→17:17)
[2018-04-17] MEDS: Metoclopramide 10 MG Tab PO SCH ×2 (07:44→17:17)
[2018-04-17] MEDS: Cyanocobalamin (Vitamin B12) 1,000 MCG Tab PO SCH (07:45)
[2018-04-17] MEDS: Niacin 500 MG Tab PO SCH ×2 (07:45→17:17)
[2018-04-17] MEDS: Cholecalciferol (Vitamin D3) 25 MCG Tab PO SCH (07:46)
[2018-04-17] MEDS: Potassium Chloride 10% 20 MEQ/15 ML Soln 15 ML UD Cup PO SCH ×3 (07:46→20:09)
[2018-04-17] MEDS: Chlorhexidine Gluconate 0.12% Oral Rinse 15 ML Cup MUCMEM SCH ×2 (08:01→20:09)
[2018-04-17] MEDS: LEVOTHYROXINE SODIUM 137 MCG PO SCH (20:09)
[2018-04-17] MEDS: buPROPion 100 MG Tab PO SCH (20:09)
[2018-04-17] MEDS: Simvastatin 10 MG Tab PO SCH (20:10)
[2018-04-18] MEDS: Metoclopramide 10 MG Tab PO SCH ×2 (07:48→17:38)
[2018-04-18] MEDS: Albuterol/Ipratropium 3.0-0.5 MG/3 ML Neb Soln NEB SCH ×2 (07:49→19:19)
[2018-04-18] MEDS: Niacin 500 MG Tab PO SCH ×2 (07:49→17:39)
[2018-04-18] MEDS: Furosemide 20 MG Tab PO SCH (07:49)
[2018-04-18] MEDS: Citalopram 20 MG Tab PO SCH (07:49)
[2018-04-18] MEDS: Fludrocortisone 0.1 MG Tab PO SCH ×2 (07:49→19:18)
[2018-04-18] MEDS: Ibuprofen 600 MG Tab PO SCH ×2 (07:49→17:38)
[2018-04-18] MEDS: Potassium Chloride 10% 20 MEQ/15 ML Soln 15 ML UD Cup PO SCH ×3 (07:50→19:18)
[2018-04-18] MEDS: Cyanocobalamin (Vitamin B12) 1,000 MCG Tab PO SCH (07:50)
[2018-04-18] MEDS: Cholecalciferol (Vitamin D3) 25 MCG Tab PO SCH (07:51)
[2018-04-18] MEDS: Chlorhexidine Gluconate 0.12% Oral Rinse 15 ML Cup MUCMEM SCH ×2 (08:08→19:18)
[2018-04-18] MEDS: LEVOTHYROXINE SODIUM 137 MCG PO SCH (19:18)
[2018-04-18] MEDS: buPROPion 100 MG Tab PO SCH (19:18)
[2018-04-18] MEDS: Simvastatin 10 MG Tab PO SCH (19:18)
[2018-04-19] MEDS: Metoclopramide 10 MG Tab PO SCH ×2 (07:41→17:31)
[2018-04-19] MEDS: Citalopram 20 MG Tab PO SCH (07:41)
[2018-04-19] MEDS: Niacin 500 MG Tab PO SCH ×2 (07:42→17:31)
[2018-04-19] MEDS: Albuterol/Ipratropium 3.0-0.5 MG/3 ML Neb Soln NEB SCH ×2 (07:42→19:22)
[2018-04-19] MEDS: Furosemide 20 MG Tab PO SCH (07:42)
[2018-04-19] MEDS: Fludrocortisone 0.1 MG Tab PO SCH ×2 (07:42→19:22)
[2018-04-19] MEDS: Ibuprofen 600 MG Tab PO SCH ×2 (07:42→17:31)
[2018-04-19] MEDS: Potassium Chloride 10% 20 MEQ/15 ML Soln 15 ML UD Cup PO SCH ×3 (07:43→19:21)
[2018-04-19] MEDS: Cholecalciferol (Vitamin D3) 25 MCG Tab PO SCH (07:43)
[2018-04-19] MEDS: Cyanocobalamin (Vitamin B12) 1,000 MCG Tab PO SCH (07:43)
[2018-04-19] MEDS: Chlorhexidine Gluconate 0.12% Oral Rinse 15 ML Cup MUCMEM SCH ×2 (08:21→19:21)
[2018-04-19] MEDS: buPROPion 100 MG Tab PO SCH (19:22)
[2018-04-19] MEDS: Simvastatin 10 MG Tab PO SCH (19:22)
[2018-04-19] MEDS: LEVOTHYROXINE SODIUM 137 MCG PO SCH (19:22)
[2018-04-20] MEDS: Furosemide 20 MG Tab PO SCH (08:08)
[2018-04-20] MEDS: Metoclopramide 10 MG Tab PO SCH ×2 (08:08→17:21)
[2018-04-20] MEDS: Albuterol/Ipratropium 3.0-0.5 MG/3 ML Neb Soln NEB SCH ×2 (08:08→19:19)
[2018-04-20] MEDS: Citalopram 20 MG Tab PO SCH (08:08)
[2018-04-20] MEDS: Fludrocortisone 0.1 MG Tab PO SCH ×2 (08:08→19:19)
[2018-04-20] MEDS: Niacin 500 MG Tab PO SCH ×2 (08:09→17:21)
[2018-04-20] MEDS: Ibuprofen 600 MG Tab PO SCH ×2 (08:09→17:21)
[2018-04-20] MEDS: Potassium Chloride 10% 20 MEQ/15 ML Soln 15 ML UD Cup PO SCH ×3 (08:09→19:18)
[2018-04-20] MEDS: Cyanocobalamin (Vitamin B12) 1,000 MCG Tab PO SCH (08:10)
[2018-04-20] MEDS: Cholecalciferol (Vitamin D3) 25 MCG Tab PO SCH (08:11)
[2018-04-20] MEDS: Chlorhexidine Gluconate 0.12% Oral Rinse 15 ML Cup MUCMEM SCH ×2 (08:11→19:18)
[2018-04-20] MEDS: LEVOTHYROXINE SODIUM 137 MCG PO SCH (19:18)
[2018-04-20] MEDS: Simvastatin 10 MG Tab PO SCH (19:18)
[2018-04-20] MEDS: buPROPion 100 MG Tab PO SCH (19:19)
[2018-04-21] MEDS: Fludrocortisone 0.1 MG Tab PO SCH ×2 (07:10→19:22)
[2018-04-21] MEDS: Metoclopramide 10 MG Tab PO SCH ×2 (07:10→17:13)
[2018-04-21] MEDS: Albuterol/Ipratropium 3.0-0.5 MG/3 ML Neb Soln NEB SCH ×2 (07:10→19:21)
[2018-04-21] MEDS: Citalopram 20 MG Tab PO SCH (07:10)
[2018-04-21] MEDS: Niacin 500 MG Tab PO SCH ×2 (07:11→17:14)
[2018-04-21] MEDS: Ibuprofen 600 MG Tab PO SCH ×2 (07:11→17:13)
[2018-04-21] MEDS: Furosemide 20 MG Tab PO SCH (07:11)
[2018-04-21] MEDS: Potassium Chloride 10% 20 MEQ/15 ML Soln 15 ML UD Cup PO SCH ×3 (07:11→19:22)
[2018-04-21] MEDS: Cyanocobalamin (Vitamin B12) 1,000 MCG Tab PO SCH (07:12)
[2018-04-21] MEDS: Cholecalciferol (Vitamin D3) 25 MCG Tab PO SCH (07:12)
[2018-04-21] MEDS: Chlorhexidine Gluconate 0.12% Oral Rinse 15 ML Cup MUCMEM SCH ×2 (08:37→19:22)
[2018-04-21] MEDS: Acetaminophen 325 MG Tab PO PRN ×2 (13:04→19:27)
[2018-04-21] MEDS: traMADol 50 MG Tab PO PRN ×2 (13:05→19:26)
[2018-04-21] MEDS: LEVOTHYROXINE SODIUM 137 MCG PO SCH (19:22)
[2018-04-21] MEDS: buPROPion 100 MG Tab PO SCH (19:23)
[2018-04-21] MEDS: Simvastatin 10 MG Tab PO SCH (19:24)
[2018-04-22] MEDS: Acetaminophen 325 MG Tab PO PRN (07:24)
[2018-04-22] MEDS: traMADol 50 MG Tab PO PRN (07:26)
[2018-04-22] MEDS: Metoclopramide 10 MG Tab PO SCH ×2 (07:26→17:24)
[2018-04-22] MEDS: Ibuprofen 600 MG Tab PO SCH ×2 (07:27→17:24)
[2018-04-22] MEDS: Fludrocortisone 0.1 MG Tab PO SCH ×2 (07:27→20:07)
[2018-04-22] MEDS: Furosemide 20 MG Tab PO SCH (07:27)
[2018-04-22] MEDS: Albuterol/Ipratropium 3.0-0.5 MG/3 ML Neb Soln NEB SCH ×2 (07:27→20:07)
[2018-04-22] MEDS: Citalopram 20 MG Tab PO SCH (07:27)
[2018-04-22] MEDS: Niacin 500 MG Tab PO SCH ×2 (07:28→17:25)
[2018-04-22] MEDS: Potassium Chloride 10% 20 MEQ/15 ML Soln 15 ML UD Cup PO SCH ×3 (07:28→20:08)
[2018-04-22] MEDS: Cyanocobalamin (Vitamin B12) 1,000 MCG Tab PO SCH (07:28)
[2018-04-22] MEDS: Cholecalciferol (Vitamin D3) 25 MCG Tab PO SCH (07:29)
[2018-04-22] MEDS: Chlorhexidine Gluconate 0.12% Oral Rinse 15 ML Cup MUCMEM SCH ×2 (08:24→20:08)
[2018-04-22] MEDS: Simvastatin 10 MG Tab PO SCH (20:07)
[2018-04-22] MEDS: LEVOTHYROXINE SODIUM 137 MCG PO SCH (20:07)
[2018-04-22] MEDS: buPROPion 100 MG Tab PO SCH (20:08)
[2018-04-23] MEDS: Citalopram 20 MG Tab PO SCH (07:16)
[2018-04-23] MEDS: Metoclopramide 10 MG Tab PO SCH ×2 (07:16→17:13)
[2018-04-23] MEDS: Furosemide 20 MG Tab PO SCH (07:17)
[2018-04-23] MEDS: Albuterol/Ipratropium 3.0-0.5 MG/3 ML Neb Soln NEB SCH ×2 (07:17→19:57)
[2018-04-23] MEDS: Fludrocortisone 0.1 MG Tab PO SCH ×2 (07:17→19:57)
[2018-04-23] MEDS: Ibuprofen 600 MG Tab PO SCH ×2 (07:17→17:13)
[2018-04-23] MEDS: Niacin 500 MG Tab PO SCH ×2 (07:18→17:13)
[2018-04-23] MEDS: Potassium Chloride 10% 20 MEQ/15 ML Soln 15 ML UD Cup PO SCH ×3 (07:18→19:59)
[2018-04-23] MEDS: Cyanocobalamin (Vitamin B12) 1,000 MCG Tab PO SCH (07:19)
[2018-04-23] MEDS: Cholecalciferol (Vitamin D3) 25 MCG Tab PO SCH (07:19)
[2018-04-23] MEDS: Chlorhexidine Gluconate 0.12% Oral Rinse 15 ML Cup MUCMEM SCH ×2 (09:17→19:58)
[2018-04-23] MEDS: Acetaminophen 325 MG Tab PO PRN (13:01)
[2018-04-23] MEDS: traMADol 50 MG Tab PO PRN (13:02)
[2018-04-23] MEDS: LEVOTHYROXINE SODIUM 137 MCG PO SCH (19:57)
[2018-04-23] MEDS: buPROPion 100 MG Tab PO SCH (19:58)
[2018-04-23] MEDS: Simvastatin 10 MG Tab PO SCH (19:59)
[2018-04-24] MEDS: Fludrocortisone 0.1 MG Tab PO SCH ×2 (07:55→19:17)
[2018-04-24] MEDS: Metoclopramide 10 MG Tab PO SCH ×2 (07:55→17:35)
[2018-04-24] MEDS: Ibuprofen 600 MG Tab PO SCH ×2 (07:55→17:35)
[2018-04-24] MEDS: Albuterol/Ipratropium 3.0-0.5 MG/3 ML Neb Soln NEB SCH ×2 (07:55→19:17)
[2018-04-24] MEDS: Furosemide 20 MG Tab PO SCH (07:55)
[2018-04-24] MEDS: Citalopram 20 MG Tab PO SCH (07:55)
[2018-04-24] MEDS: Niacin 500 MG Tab PO SCH ×2 (07:56→17:35)
[2018-04-24] MEDS: Potassium Chloride 10% 20 MEQ/15 ML Soln 15 ML UD Cup PO SCH ×3 (07:56→19:18)
[2018-04-24] MEDS: Cyanocobalamin (Vitamin B12) 1,000 MCG Tab PO SCH (07:57)
[2018-04-24] MEDS: Cholecalciferol (Vitamin D3) 25 MCG Tab PO SCH (07:57)
[2018-04-24] MEDS: Chlorhexidine Gluconate 0.12% Oral Rinse 15 ML Cup MUCMEM SCH ×2 (07:59→19:17)
[2018-04-24] MEDS: LEVOTHYROXINE SODIUM 137 MCG PO SCH (19:17)
[2018-04-24] MEDS: buPROPion 100 MG Tab PO SCH (19:19)
[2018-04-24] MEDS: Simvastatin 10 MG Tab PO SCH (19:19)
[2018-04-25] MEDS: Albuterol/Ipratropium 3.0-0.5 MG/3 ML Neb Soln NEB SCH ×2 (07:52→19:30)
[2018-04-25] MEDS: Fludrocortisone 0.1 MG Tab PO SCH ×2 (07:52→19:30)
[2018-04-25] MEDS: Citalopram 20 MG Tab PO SCH (07:52)
[2018-04-25] MEDS: Metoclopramide 10 MG Tab PO SCH ×2 (07:52→17:37)
[2018-04-25] MEDS: Furosemide 20 MG Tab PO SCH (07:52)
[2018-04-25] MEDS: Ibuprofen 600 MG Tab PO SCH ×2 (07:53→17:38)
[2018-04-25] MEDS: Niacin 500 MG Tab PO SCH ×2 (07:53→17:38)
[2018-04-25] MEDS: Potassium Chloride 10% 20 MEQ/15 ML Soln 15 ML UD Cup PO SCH ×3 (07:54→19:30)
[2018-04-25] MEDS: Cholecalciferol (Vitamin D3) 25 MCG Tab PO SCH (07:55)
[2018-04-25] MEDS: Cyanocobalamin (Vitamin B12) 1,000 MCG Tab PO SCH (07:55)
[2018-04-25] MEDS: Chlorhexidine Gluconate 0.12% Oral Rinse 15 ML Cup MUCMEM SCH ×2 (08:01→19:30)
[2018-04-25] MEDS: traMADol 50 MG Tab PO PRN (10:20)
[2018-04-25] MEDS: Acetaminophen 325 MG Tab PO PRN (10:22)
[2018-04-25] MEDS: LEVOTHYROXINE SODIUM 137 MCG PO SCH (19:30)
[2018-04-25] MEDS: buPROPion 100 MG Tab PO SCH (19:31)
[2018-04-25] MEDS: Simvastatin 10 MG Tab PO SCH (19:31)
[2018-04-26] MEDS: Citalopram 20 MG Tab PO SCH (08:05)
[2018-04-26] MEDS: Metoclopramide 10 MG Tab PO SCH ×2 (08:05→17:29)
[2018-04-26] MEDS: Albuterol/Ipratropium 3.0-0.5 MG/3 ML Neb Soln NEB SCH ×2 (08:05→19:11)
[2018-04-26] MEDS: Fludrocortisone 0.1 MG Tab PO SCH ×2 (08:06→19:12)
[2018-04-26] MEDS: Furosemide 20 MG Tab PO SCH (08:06)
[2018-04-26] MEDS: Ibuprofen 600 MG Tab PO SCH ×2 (08:06→17:29)
[2018-04-26] MEDS: Niacin 500 MG Tab PO SCH ×2 (08:07→17:33)
[2018-04-26] MEDS: Potassium Chloride 10% 20 MEQ/15 ML Soln 15 ML UD Cup PO SCH ×3 (08:08→19:13)
[2018-04-26] MEDS: Cyanocobalamin (Vitamin B12) 1,000 MCG Tab PO SCH (08:08)
[2018-04-26] MEDS: Cholecalciferol (Vitamin D3) 25 MCG Tab PO SCH (08:09)
[2018-04-26] MEDS: Chlorhexidine Gluconate 0.12% Oral Rinse 15 ML Cup MUCMEM SCH ×2 (08:09→19:13)
[2018-04-26] MEDS: traMADol 50 MG Tab PO PRN (14:48)
[2018-04-26] MEDS: Acetaminophen 325 MG Tab PO PRN (14:50)
[2018-04-26] MEDS: buPROPion 100 MG Tab PO SCH (19:13)
[2018-04-26] MEDS: LEVOTHYROXINE SODIUM 137 MCG PO SCH (19:13)
[2018-04-26] MEDS: Simvastatin 10 MG Tab PO SCH (19:14)
[2018-04-27] MEDS: Metoclopramide 10 MG Tab PO SCH ×2 (07:54→17:30)
[2018-04-27] MEDS: Citalopram 20 MG Tab PO SCH (07:54)
[2018-04-27] MEDS: Albuterol/Ipratropium 3.0-0.5 MG/3 ML Neb Soln NEB SCH ×2 (07:55→19:24)
[2018-04-27] MEDS: Fludrocortisone 0.1 MG Tab PO SCH ×2 (07:55→19:24)
[2018-04-27] MEDS: Ibuprofen 600 MG Tab PO SCH ×2 (07:55→17:30)
[2018-04-27] MEDS: Furosemide 20 MG Tab PO SCH (07:55)
[2018-04-27] MEDS: Niacin 500 MG Tab PO SCH ×2 (07:56→17:31)
[2018-04-27] MEDS: Cholecalciferol (Vitamin D3) 25 MCG Tab PO SCH (07:56)
[2018-04-27] MEDS: Cyanocobalamin (Vitamin B12) 1,000 MCG Tab PO SCH (07:56)
[2018-04-27] MEDS: Potassium Chloride 10% 20 MEQ/15 ML Soln 15 ML UD Cup PO SCH ×3 (07:57→19:25)
[2018-04-27] MEDS: Chlorhexidine Gluconate 0.12% Oral Rinse 15 ML Cup MUCMEM SCH ×2 (07:59→19:25)
[2018-04-27] MEDS: Acetaminophen 325 MG Tab PO PRN (13:49)
[2018-04-27] MEDS: traMADol 50 MG Tab PO PRN (13:49)
[2018-04-27] MEDS: Simvastatin 10 MG Tab PO SCH (19:24)
[2018-04-27] MEDS: LEVOTHYROXINE SODIUM 137 MCG PO SCH (19:24)
[2018-04-27] MEDS: buPROPion 100 MG Tab PO SCH (19:24)
[2018-04-27] MEDS: Clotrimazole 1% Crm 30 GM Tube TOP PRN (19:40)
[2018-04-28] MEDS: Clotrimazole 1% Crm 30 GM Tube TOP PRN ×2 (07:30→19:37)
[2018-04-28] MEDS: Metoclopramide 10 MG Tab PO SCH ×2 (07:42→17:30)
[2018-04-28] MEDS: Albuterol/Ipratropium 3.0-0.5 MG/3 ML Neb Soln NEB SCH ×2 (07:43→19:23)
[2018-04-28] MEDS: Ibuprofen 600 MG Tab PO SCH ×2 (07:43→17:30)
[2018-04-28] MEDS: Furosemide 20 MG Tab PO SCH (07:43)
[2018-04-28] MEDS: Fludrocortisone 0.1 MG Tab PO SCH ×2 (07:43→19:23)
[2018-04-28] MEDS: Citalopram 20 MG Tab PO SCH (07:43)
[2018-04-28] MEDS: Niacin 500 MG Tab PO SCH ×2 (07:44→17:30)
[2018-04-28] MEDS: Cyanocobalamin (Vitamin B12) 1,000 MCG Tab PO SCH (07:44)
[2018-04-28] MEDS: Cholecalciferol (Vitamin D3) 25 MCG Tab PO SCH (07:44)
[2018-04-28] MEDS: Potassium Chloride 10% 20 MEQ/15 ML Soln 15 ML UD Cup PO SCH ×3 (07:45→19:24)
[2018-04-28] MEDS: Chlorhexidine Gluconate 0.12% Oral Rinse 15 ML Cup MUCMEM SCH ×2 (08:22→19:24)
--- NOTE | 2018-04-28 09:43 | PCM.PN ---
- General Info Date of Service: 04/28/18 Admission Dx/Problem (Free Text): 1. Myotonic dystrophy 2. CHF 3. COPD 4. Recurrent UTIs Functional Status: Reports: Pain Controlled, Tolerating Diet, Ambulating, Urinating, Incentive Spirometry. Denies: New Symptoms Pain Score: 0 - Review of Systems General: Reports: Weakness (Stable chronic), Fatigue (Stable chronic). Denies: Fever, Malaise, Chills, Night Sweats, Appetite (Good) HEENT: Reports: Other (Dentition still in poor repair with no acute complaints) . Denies: Dysphasia, Ear Pain, Eye Pain, Headaches, Post Nasal Drip, Sinus Congestion, Sore Throat, Rhinitis, Visual Changes Pulmonary: Reports: No Symptoms. Denies: Shortness of Breath, Pleuritic Chest Pain, Sputum, Hemoptysis, Wheezing Cardiovascular: Reports: Edema (Stable dependent edema). Denies: Chest Pain, Palpitations, Dyspnea on Exertion, Orthopnea, PND, Lightheadedness Gastrointestinal: Reports: No Symptoms. Denies: Abdominal Pain, Constipation, Decreased Appetite, Diarrhea, Difficulty Swallowing, Flatus, Hematochezia, Melena, Nausea, Vomiting Genitourinary: Reports: No Symptoms. Denies: Dysuria, Frequency, Burning, Pain , Urgency, Incontinence, Hematuria, Retention, Flank Pain Musculoskeletal: Reports: No Symptoms. Denies: Neck Pain, Shoulder Pain, Arm Pain, Back Pain, Leg Pain, Joint Pain Skin: Reports: No Symptoms. Denies: Pallor, Diaphoresis, Bruising Neurological: Reports: Difficulty Walking, Weakness. Denies: Confusion, Dizziness, Headache, Numbness, Paresthesia, Seizure, Syncope, Tingling, Gait Disturbance Psychiatric: Reports: No Symptoms. Denies: Confusion, Depression, Agitation, Cravings, Hallucinations - Patient Data Vitals - Most Recent: Last Vital Signs Temp 36.3 C 04/28/18 08:00 Pulse 73 04/28/18 08:00 Resp 20 04/28/18 08:00 BP 131/60 04/28/18 08:00 Pulse Ox 92 L 04/28/18 08:23 Weight - Most Recent: 100.471 kg (Down 3 kg from 2 months ago) I&O - Last 24 Hours: Intake & Output 06/04/18 06/05/18 06/05/18 22:59 06:59 14:59 Intake Total 150 Balance 150 Imaging Impressions - Last 24 Hours: None Lab Results Last 24 Hours: None Sandor Results Last 24 Hours: None Med Orders - Current: Current Medications Acetaminophen (Tylenol) 650 mg PO Q4H PRN PRN Reason: Pain Last Admin: 04/27/18 13:49 Dose: 650 mg Albuterol/Ipratropium (Duoneb 3.0-0.5 Mg/3 Ml) [address] [facility] Last Admin: 04/28/18 07:43 Dose: 3 ml Albuterol/Ipratropium (Duoneb 3.0-0.5 Mg/3 Ml) 3 ml NEB Q4HRRT PRN PRN Reason: Dyspnea Last Admin: 11/30/17 19:29 Dose: 3 ml Bupropion HCl (Wellbutrin) [address] [facility] Last Admin: 04/27/18 19:24 Dose: 150 mg Calcium Carbonate/Glycine (Tums Extra Strength) 750 mg PO Q2HR PRN PRN Reason: Indigestion Last Admin: 02/06/18 14:57 Dose: 750 mg Chlorhexidine Gluconate (Peridex 0.12% Rinse) 15 ml MUCMEM BID@09,20 [facility] Last Admin: 04/28/18 08:22 Dose: 15 ml Cholecalciferol (Vitamin D3) 1,[address] [facility] Last Admin: 04/28/18 07:44 Dose: 1,000 units Citalopram Hydrobromide (Celexa) [address] [facility] Last Admin: 04/28/18 07:43 Dose: 20 mg Clotrimazole (Lotrimin Af 1% Crm) 1 gm TOP BID PRN PRN Reason: Rash Last Admin: 04/27/18 19:40 Dose: 1 applic Cyanocobalamin (Vitamin B12) 1,[address] [facility] Last Admin: 04/28/18 07:44 Dose: 1,000 mcg Diphenhydramine HCl (Benadryl) 25 mg PO Q4H PRN PRN Reason: Itching Fludrocortisone Acetate (Florinef) 0.[address] [facility] Last Admin: 04/27/18 19:24 Dose: 0.1 mg Fludrocortisone Acetate (Florinef) 0.[address] [facility] Last Admin: 04/28/18 07:43 Dose: 0.2 mg Furosemide (Lasix) [address] [facility] Last Admin: 04/28/18 07:43 Dose: 20 mg Ibuprofen (Motrin) [address] [facility] Last Admin: 04/28/18 07:43 Dose: 600 mg Ibuprofen (Motrin) 600 mg PO Q6H PRN PRN Reason: Breakthrough Pain Metoclopramide HCl (Reglan) [address] [facility] Last Admin: 04/28/18 07:42 Dose: 10 mg Niacin (Niacin) [address] [facility] Last Admin: 04/28/18 07:44 Dose: 500 mg Levothyroxine Sodium (137 Mcg Tablets) [address] [facility] Last Admin: 04/27/18 19:24 Dose: 137 mcg Potassium Chloride (Potassium Chloride Solution) 40 meq PO TID@08,14,20 [facility] Last Admin: 04/28/18 07:45 Dose: 40 meq Simvastatin (Zocor) [address] [facility] Last Admin: 04/27/18 19:24 Dose: 10 mg Tramadol HCl (Ultram) 50 mg PO Q6H PRN PRN Reason: Pain (severe 7-10) Last Admin: 04/27/18 13:49 Dose: 50 mg Discontinued Medications Diphenoxylate HCl/Atropine (Lomotil 0.025-2.5 Mg) 1 tab PO QID PRN PRN Reason: Diarrhea Last Admin: 02/09/18 09:50 Dose: 1 tab Furosemide (Lasix) 40 mg IM NOW ONE Stop: 12/10/17 11:52 Last Admin: 12/10/17 13:10 Dose: 40 mg Lactobacillus Rhamnosus (Culturelle) [address] [facility] Stop: 03/02/18 18:00 Last Admin: 03/02/18 17:10 Dose: 2 cap Metronidazole (Flagyl) [address] [facility] Stop: 02/26/18 14:01 Last Admin: 02/26/18 14:14 Dose: 500 mg Cephalexin (Keflex) (500 Mg Capsules) [address] [facility] Last Admin: 03/11/18 07:56 Dose: 500 mg Fluconazole 150mg (Tablet) [address] [facility] Stop: 12/06/17 20:01 Last Admin: 12/06/17 19:13 Dose: 1 each Omeprazole (Omeprazole) [address] [facility] Last Admin: 03/11/18 07:55 Dose: 20 mg Potassium Chloride (Klor-Con M20) 20 meq PO ONETIME ONE Stop: 12/10/17 11:53 Last Admin: 12/10/17 13:10 Dose: 20 meq Potassium Chloride (Klor-Con M20) 20 meq PO DAILY [facility] - Exam Quality Assessment: Supplemental Oxygen, DVT Prophylaxis. No: Central Line/PICC , Urine Catheter, Skin Breakdown General: Alert, Oriented, Cooperative, No Acute Distress HEENT: Pupils Equal, Pupils Reactive, EOMI, Mucous Membr. Moist/[place], Other ( Stable extremely poor dentition with no acute drainage or infection) Neck: Supple, Trachea Midline, No JVD, No Thyromegaly. No: Lymphadenopathy, Thyromegaly Lungs: Clear to Auscultation, Normal Respiratory Effort. No: Rub Cardiovascular: Regular Rate, Regular Rhythm, No Murmurs, Gallops. No: Rubs GI/Abdominal Exam: Normal Bowel Sounds, Soft, Non-Tender, No Organomegaly, No Distention, No Abnormal Bruit, No Mass, Other (Obese). No: Guarding (Female) Exam: Deferred Back Exam: Normal Inspection, Full Range of Motion. No: CVA Tenderness (L), CVA Tenderness (R), Muscle Spasm Extremities: Normal Range of Motion, Non-Tender, Pedal Edema (Stable mild lymphedema of the lower extremities with Xavier wraps in place). No: Lurdes's Sign Peripheral Pulses: 2+: Radial (L), Radial (R), Dorsalis Pedis (L), Dorsalis Pedis (R) Skin: Warm, Dry, Intact. No: Ecchymosis Neurological: No New Focal Deficit Psy/Mental Status: Alert, Normal Affect, Normal Mood - Problem List & Annotations (1) Steinert myotonic dystrophy syndrome SNOMED Code(s): 50199550 Code(s): G71.11 - MYOTONIC MUSCULAR DYSTROPHY Status: Chronic Priority: Medium Current Visit: Yes Annotation/Comment:: Stable by history and today' s exam. Repeat blood work has been delayed in hopes of coordinating with history and physical for planned complete teeth extraction as below. Secondary to further delay in scheduling the surgery repeat blood work will be ordered DIANNA with her history and physical and yearly blood work otherwise due in June. Continuation of every 4 month CPK, etc. evaluations especially in light of aggressive treatment of her dyslipidemia. (2) CHF, Congestive heart failure SNOMED Code(s): 73683599 Code(s): I50.9 - HEART FAILURE, UNSPECIFIED Status: Chronic Priority: Medium Current Visit: Yes Annotation/Comment:: Stable by clinical exam and history. Note previously increased Lasix with significant improvement of her previous dependent edema since 12/10/17. Note weight loss after discontinuation of high protein Glucerna supplements as snacks, however dietary noncompliance is still an issue. Continue to observe closely. No recent anginal complaints or current clinical evidence of CHF. Note previous history of PVCs, complete right bundle branch block, severe dyslipidemia hypokalemia, hypophosphatemia, and hyponatremia. Continue to observe for now with no further change in medical therapy (3) Caries SNOMED Code(s): 42357330 Code(s): K02.9 - DENTAL CARIES, UNSPECIFIED Status: Acute Priority: Medium Current Visit: Yes Annotation/Comment:: Initial oral surgeon/dental consultation has been completed with surgery yet to be scheduled as above. Care management team will once again contact the dentist concerning scheduling for complete teeth extraction. Preoperative H&P to be conducted in this facility with update of her blood work, EKG, etc. at that time. After many years the patient has finally agreed to further treatment for her severe poor dentist disease, including multiple caries with no evidence of acute abscesses at this time. Note initial dental evaluation on 12/22/17. (4) COPD (chronic obstructive pulmonary disease) SNOMED Code(s): 18080999 Code(s): J44.9 - CHRONIC OBSTRUCTIVE PULMONARY DISEASE, UNSPECIFIED Status : Chronic Priority: Medium Current Visit: Yes Qualifiers: COPD type: unspecified COPD Qualified Code(s): J44.9 - Chronic obstructive pulmonary disease, unspecified Annotation/Comment:: O2 dependent COPD stable by history with no bronchitic symptoms at this time. Continue current medical therapy. Patient does have a previous history of recent postoperative respiratory distress. (5) Hyperglycemia SNOMED Code(s): 91210246 Code(s): R73.9 - HYPERGLYCEMIA, UNSPECIFIED Status: Chronic Priority: Medium Current Visit: Yes Onset Date: 06/29/15 Annotation/Comment:: Glycosylated hemoglobin to be repeated DIANNA. Note persistent dietary noncompliance with some recent weight loss as above. Dietary consultation is in effect. Glycosylated hemoglobin normal on 10/28/17. (6) Hyperlipidemia SNOMED Code(s): 31351996 Code(s): E78.5 - HYPERLIPIDEMIA, UNSPECIFIED Status: Chronic Priority: Medium Current Visit: Yes Annotation/Comment:: Previous history of severe dyslipidemia with aggressive medical therapy at this time. Dietary compliance once again strongly encouraged. Repeat lipid panel tomorrow. (7) Hypothyroidism SNOMED Code(s): 74380944 Code(s): E03.9 - HYPOTHYROIDISM, UNSPECIFIED Status: Chronic Priority: Medium Current Visit: Yes Annotation/Comment:: TSH to be repeated tomorrow. (8) Mixed anxiety and depressive disorder SNOMED Code(s): 538908572 Code(s): F41.8 - OTHER SPECIFIED ANXIETY DISORDERS Status: Chronic Priority: Medium Current Visit: Yes Annotation/Comment:: Stable by history. Patient is still relatively active with physical therapy, social activities, etc.. Continue to observe closely by nursing staff with no significant depression at this time with patient often alone in her room. (9) Osteoarthritis SNOMED Code(s): 853300186 Code(s): M19.90 - UNSPECIFIED OSTEOARTHRITIS, UNSPECIFIED SITE Status: Chronic Priority: Medium Current Visit: Yes Annotation/Comment:: Stable by history as above. Note status post bilateral ankle ORIF secondary to fractures (10) UTI (urinary tract infection) SNOMED Code(s): 63856436 Code(s): N39.0 - URINARY TRACT INFECTION, SITE NOT SPECIFIED Status: Chronic Priority: Medium Current Visit: Yes Qualifiers: Hematuria presence: without hematuria Annotation/Comment:: No current UTI symptoms despite recent continuation of Keflex therapy for previous recurrent UTIs. Note subsequent C. difficile infection, which has since resolved. Continue to observe for now with no reinitiation of antibody therapy. (11) C. difficile colitis SNOMED Code(s): 442205023 Code(s): A04.72 - ENTEROCOLITIS D/T CLOSTRIDIUM DIFFICILE, NOT SPCF RECUR Status: Chronic Current Visit: Yes Onset Date: 02/12/18 Annotation/ Comment:: Resolved with negative follow-up stool specimen. Continue to observe closely, however. - Problem List Review Problem List Initiated/Reviewed/Updated: Yes - Assessment Assessment:: As above - Plan Plan:: As above. Extensive precautions were given to the patient, who is in agreement with the treatment plan. Probable preoperative history and physical for her complete dental extraction in the near future as above. Otherwise recertification in 2 months. Patient is recertified for further Swing Bed care on a long-term basis secondary to her multiple health problems as above.
[2018-04-28] MEDS: LEVOTHYROXINE SODIUM 137 MCG PO SCH (19:24)
[2018-04-28] MEDS: Simvastatin 10 MG Tab PO SCH (19:25)
[2018-04-28] MEDS: buPROPion 100 MG Tab PO SCH (19:25)
[2018-04-29] MEDS: Ibuprofen 600 MG Tab PO SCH ×2 (07:15→17:17)
[2018-04-29] MEDS: Fludrocortisone 0.1 MG Tab PO SCH ×2 (07:15→19:18)
[2018-04-29] MEDS: Metoclopramide 10 MG Tab PO SCH ×2 (07:15→17:17)
[2018-04-29] MEDS: Citalopram 20 MG Tab PO SCH (07:15)
[2018-04-29] MEDS: Furosemide 20 MG Tab PO SCH (07:15)
[2018-04-29] MEDS: Albuterol/Ipratropium 3.0-0.5 MG/3 ML Neb Soln NEB SCH ×2 (07:15→19:19)
[2018-04-29] MEDS: traMADol 50 MG Tab PO PRN (07:16)
[2018-04-29] MEDS: Niacin 500 MG Tab PO SCH ×2 (07:17→17:17)
[2018-04-29] MEDS: Acetaminophen 325 MG Tab PO PRN (07:17)
[2018-04-29] MEDS: Cyanocobalamin (Vitamin B12) 1,000 MCG Tab PO SCH (07:18)
[2018-04-29] MEDS: Cholecalciferol (Vitamin D3) 25 MCG Tab PO SCH (07:18)
[2018-04-29] MEDS: Potassium Chloride 10% 20 MEQ/15 ML Soln 15 ML UD Cup PO SCH ×3 (07:18→19:17)
[2018-04-29 08:12] LABS: HEMOGLOBIN A1C 5.3 % (4.3-5.7)
[2018-04-29] MEDS: Chlorhexidine Gluconate 0.12% Oral Rinse 15 ML Cup MUCMEM SCH ×2 (08:26→19:19)
[2018-04-29 08:55] LABS: CHLORIDE,CL 107 mmol/L (98-107); SODIUM,NA 144 mmol/L (136-145)
--- NOTE | 2018-04-29 17:26 | PCM.SN ---
- Free Text/Narrative Note: The patient has been preapproved to have the teeth extraction at [facility] in Nursery on 05/05/18. Today's blood work was reviewed. EKG and chest x- ray to the conducted tomorrow with preoperative history and physical also to be conducted at that time. Patient will likely need Ultram, which she is currently taking when necessary, for postoperative pain, although this medication should be tapered DIANNA after the above surgery.
[2018-04-29] MEDS: LEVOTHYROXINE SODIUM 137 MCG PO SCH (19:18)
[2018-04-29] MEDS: Simvastatin 10 MG Tab PO SCH (19:18)
[2018-04-29] MEDS: buPROPion 100 MG Tab PO SCH (19:18)
[2018-04-29] MEDS: Clotrimazole 1% Crm 30 GM Tube TOP PRN (20:57)
[2018-04-30] MEDS: Clotrimazole 1% Crm 30 GM Tube TOP PRN (06:52)
[2018-04-30] MEDS: Citalopram 20 MG Tab PO SCH (07:22)
[2018-04-30] MEDS: Metoclopramide 10 MG Tab PO SCH ×2 (07:22→17:25)
[2018-04-30] MEDS: Ibuprofen 600 MG Tab PO SCH ×2 (07:23→17:25)
[2018-04-30] MEDS: Albuterol/Ipratropium 3.0-0.5 MG/3 ML Neb Soln NEB SCH ×2 (07:23→19:20)
[2018-04-30] MEDS: Fludrocortisone 0.1 MG Tab PO SCH ×2 (07:23→19:21)
[2018-04-30] MEDS: Furosemide 20 MG Tab PO SCH (07:23)
[2018-04-30] MEDS: Potassium Chloride 10% 20 MEQ/15 ML Soln 15 ML UD Cup PO SCH ×3 (07:24→19:21)
[2018-04-30] MEDS: Niacin 500 MG Tab PO SCH ×2 (07:24→17:26)
[2018-04-30] MEDS: Cholecalciferol (Vitamin D3) 25 MCG Tab PO SCH (07:25)
[2018-04-30] MEDS: Cyanocobalamin (Vitamin B12) 1,000 MCG Tab PO SCH (07:25)
[2018-04-30] MEDS: Chlorhexidine Gluconate 0.12% Oral Rinse 15 ML Cup MUCMEM SCH ×2 (08:08→19:21)
--- NOTE | 2018-04-30 09:25 | PCM.HP ---
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 04/23/18 19:57 Dose: 3 ml Admin: 04/23/18 07:17 Dose: 3 ml Admin: 04/22/18 20:07 Dose: 3 ml Admin: 04/22/18 07:27 Dose: 3 ml Admin: 04/21/18 19:21 Dose: 3 ml Admin: 04/21/18 07:10 Dose: 3 ml Admin: 04/20/18 19:19 Dose: 3 ml Admin: 04/20/18 08:08 Dose: 3 ml Admin: 04/19/18 19:22 Dose: 3 ml Admin: 04/19/18 07:42 Dose: 3 ml Admin: 04/18/18 19:19 Dose: 3 ml Admin: 04/18/18 07:49 Dose: 3 ml Admin: 04/17/18 20:08 Dose: 3 ml Admin: 04/17/18 07:44 Dose: 3 ml Admin: 04/16/18 19:26 Dose: 3 ml Admin: 04/16/18 07:52 Dose: 3 ml Admin: 04/15/18 19:13 Dose: 3 ml Admin: 04/15/18 07:25 Dose: 3 ml Admin: 04/14/18 19:20 Dose: 3 ml Admin: 04/14/18 07:21 Dose: 3 ml Admin: 04/13/18 19:29 Dose: 3 ml Admin: 04/13/18 07:52 Dose: 3 ml Admin: 04/12/18 19:34 Dose: 3 ml Admin: 04/12/18 07:13 Dose: 3 ml Admin: 04/11/18 19:22 Dose: 3 ml Admin: 04/11/18 07:29 Dose: 3 ml Admin: 04/10/18 19:23 Dose: 3 ml Admin: 04/10/18 07:12 Dose: 3 ml Admin: 04/09/18 19:40 Dose: 3 ml Admin: 04/09/18 08:09 Dose: 3 ml Admin: 04/08/18 19:33 Dose: 3 ml Admin: 04/08/18 08:30 Dose: 3 ml Admin: 04/07/18 19:18 Dose: 3 ml Admin: 04/07/18 07:24 Dose: 3 ml Admin: 04/06/18 19:27 Dose: 3 ml Admin: 04/06/18 08:05 Dose: 3 ml Admin: 04/05/18 19:37 Dose: 3 ml Admin: 04/05/18 07:28 Dose: 3 ml Admin: 04/04/18 19:26 Dose: 3 ml Admin: 04/04/18 08:24 Dose: 3 ml Admin: 04/03/18 19:22 Dose: 3 ml Admin: 04/03/18 08:24 Dose: 3 ml Admin: 04/02/18 19:14 Dose: 3 ml Admin: 04/02/18 07:19 Dose: 3 ml Admin: 04/01/18 19:21 Dose: 3 ml Admin: 04/01/18 08:27 Dose: 3 ml Admin: 03/31/18 19:33 Dose: 3 ml Admin: 03/31/18 07:16 Dose: 3 ml Admin: 03/31/18 03:22 Dose: Not Given Admin: 03/30/18 07:28 Dose: 3 ml Admin: 03/29/18 19:59 Dose: 3 ml Admin: 03/29/18 07:56 Dose: 3 ml Admin: 03/28/18 20:03 Dose: 3 ml Admin: 03/28/18 07:28 Dose: 3 ml Admin: 03/27/18 19:46 Dose: 3 ml Admin: 03/27/18 07:56 Dose: 3 ml Admin: 03/26/18 19:29 Dose: 3 ml Admin: 03/26/18 07:54 Dose: 3 ml Admin: 03/25/18 19:22 Dose: 3 ml Admin: 03/25/18 07:37 Dose: 3 ml Admin: 03/24/18 19:31 Dose: 3 ml Admin: 03/24/18 07:20 Dose: 3 ml Admin: 03/23/18 19:18 Dose: 3 ml Admin: 03/23/18 07:23 Dose: 3 ml Admin: 03/22/18 19:12 Dose: 3 ml Admin: 03/22/18 07:19 Dose: 3 ml Admin: 03/21/18 19:16 Dose: 3 ml Admin: 03/21/18 07:17 Dose: 3 ml Admin: 03/20/18 19:12 Dose: 3 ml Admin: 03/20/18 07:20 Dose: 3 ml Admin: 03/19/18 19:24 Dose: 3 ml Admin: 03/19/18 08:01 Dose: 3 ml Admin: 03/18/18 20:01 Dose: 3 ml Admin: 03/18/18 08:06 Dose: 3 ml Admin: 03/17/18 19:32 Dose: 3 ml Admin: 03/17/18 07:36 Dose: 3 ml Admin: 03/16/18 20:00 Dose: 3 ml Admin: 03/16/18 08:20 Dose: 3 ml Admin: 03/15/18 19:50 Dose: 3 ml Admin: 03/15/18 08:15 Dose: 3 ml Admin: 03/14/18 19:36 Dose: 3 ml Admin: 03/14/18 08:13 Dose: 3 ml Admin: 03/13/18 19:49 Dose: 3 ml Admin: 03/13/18 07:58 Dose: 3 ml Admin: 03/12/18 19:10 Dose: 3 ml Admin: 03/12/18 07:35 Dose: 3 ml Admin: 03/11/18 19:21 Dose: 3 ml Admin: 03/11/18 08:00 Dose: 3 ml Admin: 03/10/18 19:52 Dose: 3 ml Admin: 03/10/18 07:20 Dose: 3 ml Admin: 03/09/18 19:14 Dose: 3 ml Admin: 03/09/18 08:19 Dose: 3 ml Admin: 03/08/18 19:31 Dose: 3 ml Admin: 03/08/18 09:53 Dose: 3 ml Admin: 03/07/18 19:06 Dose: 3 ml Admin: 03/07/18 07:58 Dose: 3 ml Admin: 03/06/18 19:44 Dose: 3 ml Admin: 03/06/18 08:17 Dose: 3 ml Admin: 03/05/18 19:42 Dose: 3 ml Admin: 03/05/18 08:00 Dose: 3 ml Admin: 03/04/18 19:27 Dose: 3 ml Admin: 03/04/18 08:16 Dose: 3 ml Admin: 03/03/18 19:29 Dose: 3 ml Admin: 03/03/18 07:14 Dose: 3 ml Admin: 03/02/18 19:27 Dose: 3 ml Admin: 03/02/18 07:58 Dose: 3 ml Admin: 03/01/18 19:17 Dose: 3 ml Admin: 03/01/18 07:39 Dose: 3 ml Admin: 02/28/18 19:13 Dose: 3 ml Admin: 02/28/18 07:45 Dose: 3 ml Admin: 02/27/18 19:23 Dose: 3 ml Admin: 02/27/18 08:13 Dose: 3 ml Admin: 02/26/18 19:36 Dose: 3 ml Admin: 02/26/18 08:14 Dose: 3 ml Admin: 02/25/18 19:38 Dose: 3 ml Admin: 02/25/18 08:01 Dose: 3 ml Admin: 02/24/18 19:31 Dose: 3 ml Admin: 02/24/18 08:16 Dose: 3 ml Admin: 02/23/18 19:27 Dose: 3 ml Admin: 02/23/18 07:51 Dose: 3 ml Admin: 02/22/18 19:25 Dose: 3 ml Admin: 02/22/18 08:17 Dose: 3 ml Admin: 02/21/18 19:39 Dose: 3 ml Admin: 02/21/18 08:08 Dose: 3 ml Admin: 02/20/18 19:30 Dose: 3 ml Admin: 02/20/18 08:06 Dose: 3 ml Admin: 02/19/18 19:08 Dose: 3 ml Admin: 02/19/18 08:11 Dose: 3 ml Admin: 02/18/18 19:33 Dose: Not Given Admin: 02/18/18 07:41 Dose: 3 ml Admin: 02/17/18 19:17 Dose: 3 ml Admin: 02/17/18 09:38 Dose: Not Given Admin: 02/16/18 19:37 Dose: 3 ml Admin: 02/16/18 08:14 Dose: 3 ml Admin: 02/15/18 19:39 Dose: 3 ml Admin: 02/15/18 08:10 Dose: 3 ml Admin: 02/14/18 19:51 Dose: 3 ml Admin: 02/14/18 07:46 Dose: 3 ml Admin: 02/13/18 19:38 Dose: 3 ml Admin: 02/13/18 07:41 Dose: 3 ml Admin: 02/12/18 19:43 Dose: 3 ml Admin: 02/12/18 08:34 Dose: 3 ml Admin: 02/11/18 19:51 Dose: 3 ml Admin: 02/11/18 07:34 Dose: 3 ml Admin: 02/10/18 19:23 Dose: 3 ml Admin: 02/10/18 08:07 Dose: 3 ml Admin: 02/09/18 20:04 Dose: 3 ml Admin: 02/09/18 08:47 Dose: 3 ml Admin: 02/08/18 19:16 Dose: 3 ml Admin: 02/08/18 08:14 Dose: 3 ml Admin: 02/07/18 19:24 Dose: 3 ml Admin: 02/07/18 07:21 Dose: 3 ml Admin: 02/06/18 19:56 Dose: 3 ml Admin: 02/06/18 07:41 Dose: 3 ml Admin: 02/05/18 20:12 Dose: 3 ml Admin: 02/05/18 08:13 Dose: 3 ml Admin: 02/04/18 19:16 Dose: 3 ml Admin: 02/04/18 08:04 Dose: 3 ml Admin: 02/03/18 21:03 Dose: 3 ml Admin: 02/03/18 08:15 Dose: 3 ml Admin: 02/02/18 20:18 Dose: 3 ml Admin: 02/02/18 08:46 Dose: 3 ml Admin: 02/01/18 20:36 Dose: 3 ml Admin: 02/01/18 07:58 Dose: 3 ml Admin: 01/31/18 19:32 Dose: 3 ml Admin: 01/31/18 08:20 Dose: 3 ml Admin: 01/30/18 19:36 Dose: 3 ml Admin: 01/30/18 08:13 Dose: 3 ml Admin: 01/29/18 19:11 Dose: 3 ml Admin: 01/29/18 07:38 Dose: 3 ml Admin: 01/28/18 19:30 Dose: 3 ml Admin: 01/28/18 07:35 Dose: 3 ml Admin: 01/27/18 19:37 Dose: 3 ml Admin: 01/27/18 07:26 Dose: 3 ml Admin: 01/26/18 19:40 Dose: 3 ml Admin: 01/26/18 07:38 Dose: 3 ml Admin: 01/25/18 19:28 Dose: 3 ml Admin: 01/25/18 07:42 Dose: 3 ml Admin: 01/24/18 19:51 Dose: 3 ml Admin: 01/24/18 08:09 Dose: 3 ml Admin: 01/23/18 19:38 Dose: 3 ml Admin: 01/23/18 08:10 Dose: 3 ml Admin: 01/22/18 19:11 Dose: 3 ml Admin: 01/22/18 08:21 Dose: 3 ml Admin: 01/21/18 19:39 Dose: 3 ml Admin: 01/21/18 07:48 Dose: 3 ml Admin: 01/20/18 19:10 Dose: 3 ml Admin: 01/20/18 07:17 Dose: 3 ml Admin: 01/19/18 19:18 Dose: 3 ml Admin: 01/19/18 08:20 Dose: 3 ml Admin: 01/18/18 19:07 Dose: 3 ml Admin: 01/18/18 07:22 Dose: 3 ml Admin: 01/17/18 19:21 Dose: 3 ml Admin: 01/17/18 07:22 Dose: 3 ml Admin: 01/16/18 19:50 Dose: 3 ml Admin: 01/16/18 07:40 Dose: 3 ml Admin: 01/15/18 19:38 Dose: 3 ml Admin: 01/15/18 07:57 Dose: 3 ml Admin: 01/14/18 19:32 Dose: 3 ml Admin: 01/14/18 07:38 Dose: 3 ml Admin: 01/13/18 19:45 Dose: 3 ml Admin: 01/13/18 08:17 Dose: 3 ml Admin: 01/12/18 19:37 Dose: 3 ml Admin: 01/12/18 08:16 Dose: 3 ml Admin: 01/11/18 19:12 Dose: 3 ml Admin: 01/11/18 08:39 Dose: 3 ml Admin: 01/10/18 19:53 Dose: 3 ml Admin: 01/10/18 08:24 Dose: 3 ml Admin: 01/09/18 19:28 Dose: 3 ml Admin: 01/09/18 08:29 Dose: 3 ml Admin: 01/08/18 19:31 Dose: 3 ml Admin: 01/08/18 07:27 Dose: 3 ml Admin: 01/07/18 19:28 Dose: 3 ml Admin: 01/07/18 07:30 Dose: 3 ml Admin: 01/06/18 19:18 Dose: 3 ml Admin: 01/06/18 07:31 Dose: 3 ml Admin: 01/05/18 19:57 Dose: 3 ml Admin: 01/05/18 08:10 Dose: 3 ml Admin: 01/04/18 19:30 Dose: 3 ml Admin: 01/04/18 08:16 Dose: 3 ml Admin: 01/03/18 19:25 Dose: 3 ml Admin: 01/03/18 08:14 Dose: 3 ml Admin: 01/02/18 19:23 Dose: 3 ml Admin: 01/02/18 08:04 Dose: 3 ml Admin: 01/01/18 19:06 Dose: 3 ml Admin: 01/01/18 07:26 Dose: 3 ml Admin: 12/31/17 19:28 Dose: 3 ml Admin: 12/31/17 07:20 Dose: 3 ml Admin: 12/30/17 19:38 Dose: 3 ml Admin: 12/30/17 08:25 Dose: 3 ml Admin: 12/29/17 19:36 Dose: 3 ml Admin: 12/29/17 08:11 Dose: 3 ml Admin: 12/28/17 19:07 Dose: 3 ml Admin: 12/28/17 07:25 Dose: 3 ml Admin: 12/27/17 19:25 Dose: 3 ml Admin: 12/27/17 07:10 Dose: 3 ml Admin: 12/26/17 19:22 Dose: 3 ml Admin: 12/26/17 07:37 Dose: 3 ml Admin: 12/25/17 19:48 Dose: 3 ml Admin: 12/25/17 08:05 Dose: 3 ml Admin: 12/24/17 19:36 Dose: 3 ml Admin: 12/24/17 08:20 Dose: 3 ml Admin: 12/23/17 19:11 Dose: 3 ml Admin: 12/23/17 07:35 Dose: 3 ml Admin: 12/22/17 19:21 Dose: 3 ml Admin: 12/22/17 08:13 Dose: 3 ml Admin: 12/21/17 19:29 Dose: 3 ml Admin: 12/21/17 08:06 Dose: 3 ml Admin: 12/20/17 19:35 Dose: 3 ml Admin: 12/20/17 08:16 Dose: 3 ml Admin: 12/19/17 19:42 Dose: 3 ml Admin: 12/19/17 07:52 Dose: 3 ml Admin: 12/18/17 19:37 Dose: 3 ml Admin: 12/18/17 08:25 Dose: 3 ml Admin: 12/17/17 19:06 Dose: 3 ml Admin: 12/17/17 07:34 Dose: 3 ml Admin: 12/16/17 19:29 Dose: 3 ml Admin: 12/16/17 07:23 Dose: 3 ml Admin: 12/15/17 19:29 Dose: 3 ml Admin: 12/15/17 07:26 Dose: 3 ml Admin: 12/14/17 20:05 Dose: 3 ml Admin: 12/14/17 08:05 Dose: 3 ml Admin: 12/13/17 19:14 Dose: 3 ml Admin: 12/13/17 08:18 Dose: 3 ml Admin: 12/12/17 19:59 Dose: 3 ml Admin: 12/12/17 08:15 Dose: 3 ml Admin: 12/11/17 19:42 Dose: 3 ml Admin: 12/11/17 07:50 Dose: 3 ml Admin: 12/10/17 19:54 Dose: 3 ml Admin: 12/10/17 07:58 Dose: 3 ml Admin: 12/09/17 19:14 Dose: 3 ml Admin: 12/09/17 08:12 Dose: 3 ml Admin: 12/08/17 19:22 Dose: 3 ml Admin: 12/08/17 07:21 Dose: 3 ml Admin: 12/07/17 19:27 Dose: 3 ml Admin: 12/07/17 07:29 Dose: 3 ml Admin: 12/06/17 19:18 Dose: 3 ml Admin: 12/06/17 07:31 Dose: 3 ml Admin: 12/05/17 19:17 Dose: 3 ml Admin: 12/05/17 08:12 Dose: 3 ml Admin: 12/04/17 19:26 Dose: 3 ml Admin: 12/04/17 07:55 Dose: 3 ml Admin: 12/03/17 19:13 Dose: 3 ml Admin: 12/03/17 08:05 Dose: 3 ml Admin: 12/02/17 19:23 Dose: 3 ml Admin: 12/02/17 08:06 Dose: 3 ml Admin: 12/01/17 19:26 Dose: 3 ml Admin: 12/01/17 08:03 Dose: 3 ml Admin: 11/30/17 19:29 Dose: 3 ml Admin: 11/30/17 08:03 Dose: 3 ml Admin: 11/29/17 19:09 Dose: 3 ml Admin: 11/29/17 08:07 Dose: 3 ml Admin: 11/28/17 19:13 Dose: 3 ml Admin: 11/28/17 08:24 Dose: 3 ml Admin: 11/27/17 19:21 Dose: 3 ml Admin: 11/27/17 08:16 Dose: 3 ml Admin: 11/26/17 19:20 Dose: 3 ml Admin: 11/26/17 08:15 Dose: 3 ml Admin: 11/25/17 19:20 Dose: 3 ml Albuterol/Ipratropium (Duoneb 3.0-0.5 Mg/3 Ml) 3 ml NEB Q4HRRT PRN PRN Reason: Dyspnea Last Admin: 11/30/17 19:29 Dose: 3 ml Bupropion HCl (Wellbutrin) 150 mg PO BEDTIME MIESHA Last Admin: 04/29/18 19:18 Dose: 150 mg Admin: 04/28/18 19:25 Dose: 150 mg Admin: 04/27/18 19:24 Dose: 150 mg Admin: 04/26/18 19:13 Dose: 150 mg Admin: 04/25/18 19:31 Dose: 150 mg Admin: 04/24/18 19:19 Dose: 150 mg Admin: 04/23/18 19:58 Dose: 150 mg Admin: 04/22/18 20:08 Dose: 150 mg Admin: 04/21/18 19:23 Dose: 150 mg Admin: 04/20/18 19:19 Dose: 150 mg Admin: 04/19/18 19:22 Dose: 150 mg Admin: 04/18/18 19:18 Dose: 150 mg Admin: 04/17/18 20:09 Dose: 150 mg Admin: 04/16/18 19:28 Dose: 150 mg Admin: 04/15/18 19:13 Dose: 150 mg Admin: 04/14/18 19:21 Dose: 150 mg Admin: 04/13/18 19:28 Dose: 150 mg Admin: 04/12/18 19:35 Dose: 150 mg Admin: 04/11/18 19:34 Dose: 150 mg Admin: 04/10/18 19:23 Dose: 150 mg Admin: 04/09/18 19:44 Dose: 150 mg Admin: 04/08/18 19:35 Dose: 150 mg Admin: 04/07/18 19:19 Dose: 150 mg Admin: 04/06/18 19:27 Dose: 150 mg Admin: 04/05/18 19:39 Dose: 150 mg Admin: 04/04/18 19:28 Dose: 150 mg Admin: 04/03/18 19:24 Dose: 150 mg Admin: 04/02/18 19:13 Dose: 150 mg Admin: 04/01/18 19:22 Dose: 150 mg Admin: 03/31/18 19:34 Dose: 150 mg Admin: 03/31/18 03:23 Dose: Not Given Admin: 03/29/18 20:00 Dose: 150 mg Admin: 03/28/18 20:04 Dose: 150 mg Admin: 03/27/18 19:48 Dose: 150 mg Admin: 03/26/18 19:31 Dose: 150 mg Admin: 03/25/18 19:24 Dose: 150 mg Admin: 03/24/18 19:33 Dose: 150 mg Admin: 03/23/18 19:19 Dose: 150 mg Admin: 03/22/18 19:12 Dose: 150 mg Admin: 03/21/18 19:16 Dose: 150 mg Admin: 03/20/18 19:12 Dose: 150 mg Admin: 03/19/18 19:24 Dose: 150 mg Admin: 03/18/18 20:02 Dose: 150 mg Admin: 03/17/18 19:33 Dose: 150 mg Admin: 03/16/18 19:57 Dose: 150 mg Admin: 03/15/18 19:51 Dose: 150 mg Admin: 03/14/18 19:37 Dose: 150 mg Admin: 03/13/18 19:49 Dose: 150 mg Admin: 03/12/18 19:09 Dose: 150 mg Admin: 03/11/18 19:20 Dose: 150 mg Admin: 03/10/18 19:50 Dose: 150 mg Admin: 03/09/18 19:15 Dose: 150 mg Admin: 03/08/18 19:31 Dose: 150 mg Admin: 03/07/18 19:06 Dose: 150 mg Admin: 03/06/18 19:47 Dose: 150 mg Admin: 03/05/18 19:46 Dose: 150 mg Admin: 03/04/18 19:29 Dose: 150 mg Admin: 03/03/18 19:30 Dose: 150 mg Admin: 03/02/18 19:29 Dose: 150 mg Admin: 03/01/18 19:17 Dose: 150 mg Admin: 02/28/18 19:12 Dose: 150 mg Admin: 02/27/18 19:23 Dose: 150 mg Admin: 02/26/18 19:36 Dose: 150 mg Admin: 02/25/18 19:39 Dose: 150 mg Admin: 02/24/18 19:33 Dose: 150 mg Admin: 02/23/18 19:26 Dose: 150 mg Admin: 02/22/18 19:25 Dose: 150 mg Admin: 02/21/18 19:41 Dose: 150 mg Admin: 02/20/18 19:36 Dose: 150 mg Admin: 02/19/18 19:08 Dose: 150 mg Admin: 02/18/18 19:34 Dose: 150 mg Admin: 02/17/18 19:17 Dose: 150 mg Admin: 02/16/18 19:38 Dose: 150 mg Admin: 02/15/18 19:40 Dose: 150 mg Admin: 02/14/18 19:53 Dose: 150 mg Admin: 02/13/18 19:38 Dose: 150 mg Admin: 02/12/18 19:46 Dose: 150 mg Admin: 02/11/18 19:55 Dose: 150 mg Admin: 02/10/18 19:23 Dose: 150 mg Admin: 02/09/18 20:05 Dose: 150 mg Admin: 02/08/18 19:15 Dose: 150 mg Admin: 02/07/18 19:24 Dose: 150 mg Admin: 02/06/18 19:57 Dose: 150 mg Admin: 02/05/18 20:13 Dose: 150 mg Admin: 02/04/18 19:15 Dose: 150 mg Admin: 02/03/18 21:04 Dose: 150 mg Admin: 02/02/18 20:19 Dose: 150 mg Admin: 02/01/18 19:57 Dose: 150 mg Admin: 01/31/18 19:33 Dose: 150 mg Admin: 01/30/18 19:38 Dose: 150 mg Admin: 01/29/18 19:10 Dose: 150 mg Admin: 01/28/18 19:29 Dose: 150 mg Admin: 01/27/18 19:38 Dose: 150 mg Admin: 01/26/18 19:41 Dose: 150 mg Admin: 01/25/18 19:29 Dose: 150 mg Admin: 01/24/18 19:53 Dose: 150 mg Admin: 01/23/18 19:39 Dose: 150 mg Admin: 01/22/18 19:10 Dose: 150 mg Admin: 01/21/18 19:42 Dose: 150 mg Admin: 01/20/18 19:11 Dose: 150 mg Admin: 01/19/18 19:17 Dose: 150 mg Admin: 01/18/18 19:06 Dose: 150 mg Admin: 01/17/18 19:20 Dose: 150 mg Admin: 01/16/18 19:50 Dose: 150 mg Admin: 01/15/18 19:38 Dose: 150 mg Admin: 01/14/18 19:31 Dose: 150 mg Admin: 01/13/18 19:47 Dose: 150 mg Admin: 01/12/18 19:38 Dose: 150 mg Admin: 01/11/18 19:15 Dose: 150 mg Admin: 01/10/18 19:54 Dose: 150 mg Admin: 01/09/18 19:29 Dose: 150 mg Admin: 01/08/18 19:32 Dose: 150 mg Admin: 01/07/18 19:27 Dose: 150 mg Admin: 01/06/18 19:17 Dose: 150 mg Admin: 01/05/18 20:00 Dose: 150 mg Admin: 01/04/18 19:31 Dose: 150 mg Admin: 01/03/18 19:26 Dose: 150 mg Admin: 01/02/18 19:25 Dose: 150 mg Admin: 01/01/18 19:05 Dose: 150 mg Admin: 12/31/17 19:28 Dose: 150 mg Admin: 12/30/17 19:40 Dose: 150 mg Admin: 12/29/17 19:37 Dose: 150 mg Admin: 12/28/17 19:07 Dose: 150 mg Admin: 12/27/17 19:24 Dose: 150 mg Admin: 12/26/17 19:21 Dose: 150 mg Admin: 12/25/17 19:49 Dose: 150 mg Admin: 12/24/17 19:36 Dose: 150 mg Admin: 12/23/17 19:13 Dose: 150 mg Admin: 12/22/17 19:23 Dose: 150 mg Admin: 12/21/17 19:32 Dose: 150 mg Admin: 12/20/17 19:39 Dose: 150 mg Admin: 12/19/17 19:45 Dose: 150 mg Admin: 12/18/17 19:38 Dose: 150 mg Admin: 12/17/17 19:07 Dose: 150 mg Admin: 12/16/17 19:30 Dose: 150 mg Admin: 12/15/17 19:29 Dose: 150 mg Admin: 12/14/17 20:06 Dose: 150 mg Admin: 12/13/17 19:14 Dose: 150 mg Admin: 12/12/17 20:00 Dose: 150 mg Admin: 12/11/17 19:43 Dose: 150 mg Admin: 12/10/17 19:55 Dose: 150 mg Admin: 12/09/17 19:18 Dose: 150 mg Admin: 12/08/17 19:21 Dose: 150 mg Admin: 12/07/17 19:30 Dose: 150 mg Admin: 12/06/17 19:17 Dose: 150 mg Admin: 12/05/17 19:16 Dose: 150 mg Admin: 12/04/17 19:27 Dose: 150 mg Admin: 12/03/17 19:13 Dose: 150 mg Admin: 12/02/17 19:25 Dose: 150 mg Admin: 12/01/17 19:29 Dose: 150 mg Admin: 11/30/17 19:31 Dose: 150 mg Admin: 11/29/17 19:11 Dose: 150 mg Admin: 11/28/17 19:15 Dose: 150 mg Admin: 11/27/17 19:23 Dose: 150 mg Admin: 11/26/17 19:21 Dose: 150 mg Admin: 11/25/17 19:22 Dose: 150 mg Calcium Carbonate/Glycine (Tums Extra Strength) 750 mg PO Q2HR PRN PRN Reason: Indigestion Last Admin: 02/06/18 14:57 Dose: 750 mg Chlorhexidine Gluconate (Peridex 0.12% Rinse) 15 ml MUCMEM BID@09,20 MIESHA Last Admin: 04/30/18 08:08 Dose: 15 ml Admin: 04/29/18 19:19 Dose: 15 ml Admin: 04/29/18 08:26 Dose: 15 ml Admin: 04/28/18 19:24 Dose: 15 ml Admin: 04/28/18 08:22 Dose: 15 ml Admin: 04/27/18 19:25 Dose: 15 ml Admin: 04/27/18 07:59 Dose: 15 ml Admin: 04/26/18 19:13 Dose: 15 ml Admin: 04/26/18 08:09 Dose: 15 ml Admin: 04/25/18 19:30 Dose: 15 ml Admin: 04/25/18 08:01 Dose: 15 ml Admin: 04/24/18 19:17 Dose: 15 ml Admin: 04/24/18 07:59 Dose: 15 ml Admin: 04/23/18 19:58 Dose: 15 ml Admin: 04/23/18 09:17 Dose: 15 ml Admin: 04/22/18 20:08 Dose: 15 ml Admin: 04/22/18 08:24 Dose: 15 ml Admin: 04/21/18 19:22 Dose: 15 ml Admin: 04/21/18 08:37 Dose: 15 ml Admin: 04/20/18 19:18 Dose: 15 ml Admin: 04/20/18 08:11 Dose: 15 ml Admin: 04/19/18 19:21 Dose: 15 ml Admin: 04/19/18 08:21 Dose: 15 ml Admin: 04/18/18 19:18 Dose: 15 ml Admin: 04/18/18 08:08 Dose: 15 ml Admin: 04/17/18 20:09 Dose: 15 ml Admin: 04/17/18 08:01 Dose: 15 ml Admin: 04/16/18 19:27 Dose: 15 ml Admin: 04/16/18 07:59 Dose: 15 ml Admin: 04/15/18 19:13 Dose: 15 ml Admin: 04/15/18 08:00 Dose: 15 ml Admin: 04/14/18 19:21 Dose: 15 ml Admin: 04/14/18 08:07 Dose: 15 ml Admin: 04/13/18 19:29 Dose: 15 ml Admin: 04/13/18 08:01 Dose: 15 ml Admin: 04/12/18 19:35 Dose: 15 ml Admin: 04/12/18 08:00 Dose: 15 ml Admin: 04/11/18 19:22 Dose: 15 ml Admin: 04/11/18 08:00 Dose: 15 ml Admin: 04/10/18 19:23 Dose: 15 ml Admin: 04/10/18 08:00 Dose: 15 ml Admin: 04/09/18 19:43 Dose: 15 ml Admin: 04/09/18 08:15 Dose: 15 ml Admin: 04/08/18 19:34 Dose: 15 ml Admin: 04/08/18 08:34 Dose: 15 ml Admin: 04/07/18 19:19 Dose: 15 ml Admin: 04/07/18 08:01 Dose: 15 ml Admin: 04/06/18 19:28 Dose: 15 ml Admin: 04/06/18 08:05 Dose: 15 ml Admin: 04/05/18 19:37 Dose: 15 ml Admin: 04/05/18 08:34 Dose: 15 ml Admin: 04/04/18 19:27 Dose: 15 ml Admin: 04/04/18 08:33 Dose: 15 ml Admin: 04/03/18 19:23 Dose: 15 ml Admin: 04/03/18 08:26 Dose: 15 ml Admin: 04/02/18 19:14 Dose: 15 ml Admin: 04/02/18 08:55 Dose: 15 ml Admin: 04/01/18 19:23 Dose: 15 ml Admin: 04/01/18 08:31 Dose: 15 ml Admin: 03/31/18 19:34 Dose: 15 ml Admin: 03/31/18 08:13 Dose: 15 ml Admin: 03/31/18 03:22 Dose: Not Given Admin: 03/30/18 08:20 Dose: 15 ml Admin: 03/29/18 20:00 Dose: 15 ml Admin: 03/29/18 07:59 Dose: 15 ml Admin: 03/28/18 20:03 Dose: 15 ml Admin: 03/28/18 08:04 Dose: 15 ml Admin: 03/27/18 19:47 Dose: 15 ml Admin: 03/27/18 08:00 Dose: 15 ml Admin: 03/26/18 19:30 Dose: 15 ml Admin: 03/26/18 08:00 Dose: 15 ml Admin: 03/25/18 19:23 Dose: 15 ml Admin: 03/25/18 09:42 Dose: 15 ml Admin: 03/24/18 19:32 Dose: 15 ml Admin: 03/24/18 08:02 Dose: 15 ml Admin: 03/23/18 19:19 Dose: 15 ml Admin: 03/23/18 08:08 Dose: 15 ml Admin: 03/22/18 19:12 Dose: 15 ml Admin: 03/22/18 08:27 Dose: 15 ml Admin: 03/21/18 19:16 Dose: 15 ml Admin: 03/21/18 08:01 Dose: 15 ml Admin: 03/20/18 19:12 Dose: 15 ml Admin: 03/20/18 08:31 Dose: 15 ml Admin: 03/19/18 19:26 Dose: 15 ml Admin: 03/19/18 08:05 Dose: 15 ml Admin: 03/18/18 20:02 Dose: 15 ml Admin: 03/18/18 08:09 Dose: 15 ml Admin: 03/17/18 19:33 Dose: 15 ml Admin: 03/17/18 08:12 Dose: 15 ml Admin: 03/16/18 20:00 Dose: 15 ml Admin: 03/16/18 08:23 Dose: 15 ml Admin: 03/15/18 19:51 Dose: 15 ml Admin: 03/15/18 08:21 Dose: 15 ml Admin: 03/14/18 19:36 Dose: 15 ml Admin: 03/14/18 08:19 Dose: 15 ml Admin: 03/13/18 19:50 Dose: 15 ml Admin: 03/13/18 08:00 Dose: 15 ml Admin: 03/12/18 19:09 Dose: 15 ml Admin: 03/12/18 08:18 Dose: 15 ml Admin: 03/11/18 19:21 Dose: 15 ml Admin: 03/11/18 08:00 Dose: 15 ml Admin: 03/10/18 19:51 Dose: 15 ml Admin: 03/10/18 08:32 Dose: 15 ml Admin: 03/09/18 19:15 Dose: 15 ml Admin: 03/09/18 08:19 Dose: 15 ml Admin: 03/08/18 19:32 Dose: 15 ml Admin: 03/08/18 09:54 Dose: 15 ml Admin: 03/07/18 19:06 Dose: 15 ml Admin: 03/07/18 08:01 Dose: 15 ml Admin: 03/06/18 19:45 Dose: 15 ml Admin: 03/06/18 08:19 Dose: 15 ml Admin: 03/05/18 19:43 Dose: 15 ml Admin: 03/05/18 08:03 Dose: 15 ml Admin: 03/04/18 19:28 Dose: 15 ml Admin: 03/04/18 08:16 Dose: 15 ml Admin: 03/03/18 19:31 Dose: 15 ml Admin: 03/03/18 08:32 Dose: 15 ml Admin: 03/02/18 19:28 Dose: 15 ml Admin: 03/02/18 08:00 Dose: 15 ml Admin: 03/01/18 19:17 Dose: 15 ml Admin: 03/01/18 08:07 Dose: 15 ml Admin: 02/28/18 19:12 Dose: 15 ml Admin: 02/28/18 08:31 Dose: 15 ml Admin: 02/27/18 19:23 Dose: 15 ml Admin: 02/27/18 08:15 Dose: 15 ml Admin: 02/26/18 19:37 Dose: 15 ml Admin: 02/26/18 08:17 Dose: 15 ml Admin: 02/25/18 19:39 Dose: 15 ml Admin: 02/25/18 08:06 Dose: 15 ml Admin: 02/24/18 19:32 Dose: 15 ml Admin: 02/24/18 08:22 Dose: 15 ml Admin: 02/23/18 19:28 Dose: 15 ml Admin: 02/23/18 08:30 Dose: 15 ml Admin: 02/22/18 19:26 Dose: 15 ml Admin: 02/22/18 08:20 Dose: 15 ml Admin: 02/21/18 20:57 Dose: 15 ml Admin: 02/21/18 08:11 Dose: 15 ml Admin: 02/20/18 19:33 Dose: 15 ml Admin: 02/20/18 08:08 Dose: 15 ml Admin: 02/19/18 19:08 Dose: 15 ml Admin: 02/19/18 08:15 Dose: 15 ml Admin: 02/18/18 19:36 Dose: 15 ml Admin: 02/18/18 08:07 Dose: 15 ml Admin: 02/17/18 19:18 Dose: 15 ml Admin: 02/17/18 09:40 Dose: Not Given Admin: 02/16/18 19:38 Dose: 15 ml Admin: 02/16/18 08:16 Dose: 15 ml Admin: 02/15/18 19:40 Dose: 15 ml Admin: 02/15/18 08:12 Dose: 15 ml Admin: 02/14/18 19:52 Dose: 15 ml Admin: 02/14/18 08:20 Dose: 15 ml Admin: 02/13/18 19:38 Dose: 15 ml Admin: 02/13/18 08:55 Dose: 15 ml Admin: 02/12/18 19:44 Dose: 15 ml Admin: 02/12/18 08:34 Dose: 15 ml Admin: 02/11/18 19:56 Dose: 15 ml Admin: 02/11/18 08:12 Dose: 15 ml Admin: 02/10/18 19:23 Dose: 15 ml Admin: 02/10/18 08:07 Dose: 15 ml Admin: 02/09/18 20:04 Dose: 15 ml Admin: 02/09/18 08:51 Dose: 15 ml Admin: 02/08/18 19:16 Dose: 15 ml Admin: 02/08/18 08:16 Dose: 15 ml Admin: 02/07/18 19:24 Dose: 15 ml Admin: 02/07/18 09:14 Dose: 15 ml Admin: 02/06/18 19:56 Dose: 15 ml Admin: 02/06/18 09:24 Dose: 15 ml Admin: 02/05/18 20:14 Dose: 15 ml Admin: 02/05/18 08:15 Dose: 15 ml Admin: 02/04/18 19:16 Dose: 15 ml Admin: 02/04/18 08:06 Dose: 15 ml Admin: 02/03/18 21:05 Dose: 15 ml Admin: 02/03/18 08:16 Dose: 15 ml Admin: 02/02/18 20:19 Dose: 15 ml Admin: 02/02/18 08:50 Dose: 15 ml Admin: 02/01/18 19:56 Dose: 15 ml Admin: 02/01/18 08:02 Dose: 15 ml Admin: 01/31/18 19:33 Dose: 15 ml Admin: 01/31/18 08:25 Dose: 15 ml Admin: 01/30/18 19:37 Dose: 15 ml Admin: 01/30/18 08:16 Dose: 15 ml Admin: 01/29/18 19:11 Dose: 15 ml Admin: 01/29/18 08:16 Dose: 15 ml Admin: 01/28/18 19:30 Dose: 15 ml Admin: 01/28/18 08:32 Dose: 15 ml Admin: 01/27/18 19:39 Dose: 15 ml Admin: 01/27/18 08:00 Dose: 15 ml Admin: 01/26/18 19:41 Dose: 15 ml Admin: 01/26/18 08:07 Dose: 15 ml Admin: 01/25/18 19:29 Dose: 15 ml Admin: 01/25/18 08:01 Dose: 15 ml Admin: 01/24/18 19:52 Dose: 15 ml Admin: 01/24/18 08:11 Dose: 15 ml Admin: 01/23/18 19:39 Dose: 15 ml Admin: 01/23/18 08:13 Dose: 15 ml Admin: 01/22/18 19:11 Dose: 15 ml Admin: 01/22/18 08:25 Dose: 15 ml Admin: 01/21/18 19:41 Dose: 15 ml Admin: 01/21/18 09:38 Dose: 15 ml Admin: 01/20/18 19:12 Dose: 15 ml Admin: 01/20/18 08:26 Dose: 15 ml Admin: 01/19/18 19:17 Dose: 15 ml Admin: 01/19/18 08:24 Dose: 15 ml Admin: 01/18/18 19:07 Dose: 15 ml Admin: 01/18/18 08:16 Dose: 15 ml Admin: 01/17/18 19:21 Dose: 15 ml Admin: 01/17/18 08:00 Dose: 15 ml Admin: 01/16/18 19:50 Dose: 15 ml Admin: 01/16/18 08:31 Dose: 15 ml Admin: 01/15/18 19:39 Dose: 15 ml Admin: 01/15/18 07:59 Dose: 15 ml Admin: 01/14/18 19:32 Dose: 15 ml Admin: 01/14/18 08:02 Dose: 15 ml Admin: 01/13/18 19:46 Dose: 15 ml Admin: 01/13/18 08:17 Dose: 15 ml Admin: 01/12/18 19:38 Dose: 15 ml Admin: 01/12/18 08:16 Dose: 15 ml Admin: 01/11/18 19:13 Dose: 15 ml Admin: 01/11/18 10:13 Dose: 15 ml Admin: 01/10/18 19:54 Dose: 15 ml Admin: 01/10/18 08:27 Dose: 15 ml Admin: 01/09/18 19:30 Dose: 15 ml Admin: 01/09/18 08:32 Dose: 15 ml Admin: 01/08/18 19:32 Dose: 15 ml Admin: 01/08/18 08:15 Dose: 15 ml Admin: 01/07/18 19:28 Dose: 15 ml Admin: 01/07/18 08:01 Dose: 15 ml Admin: 01/06/18 19:18 Dose: 15 ml Admin: 01/06/18 08:05 Dose: 15 ml Admin: 01/05/18 19:58 Dose: 15 ml Admin: 01/05/18 08:14 Dose: 15 ml Admin: 01/04/18 19:31 Dose: 15 ml Admin: 01/04/18 08:19 Dose: 15 ml Admin: 01/03/18 19:26 Dose: 15 ml Admin: 01/03/18 08:16 Dose: 15 ml Admin: 01/02/18 19:24 Dose: 15 ml Admin: 01/02/18 08:08 Dose: 15 ml Admin: 01/01/18 19:05 Dose: 15 ml Admin: 01/01/18 10:14 Dose: 15 ml Admin: 12/31/17 19:29 Dose: 15 ml Admin: 12/31/17 08:18 Dose: 15 ml Admin: 12/30/17 19:39 Dose: 15 ml Admin: 12/30/17 08:26 Dose: 15 ml Admin: 12/29/17 19:40 Dose: 15 ml Admin: 12/29/17 08:14 Dose: 15 ml Admin: 12/28/17 19:07 Dose: 15 ml Admin: 12/28/17 08:26 Dose: 15 ml Admin: 12/27/17 19:25 Dose: 15 ml Admin: 12/27/17 08:10 Dose: 15 ml Admin: 12/26/17 19:22 Dose: 15 ml Admin: 12/26/17 08:10 Dose: 15 ml Admin: 12/25/17 19:48 Dose: 15 ml Admin: 12/25/17 08:08 Dose: 15 ml Admin: 12/24/17 19:36 Dose: 15 ml Admin: 12/24/17 08:19 Dose: 15 ml Admin: 12/23/17 19:11 Dose: 15 ml Admin: 12/23/17 08:24 Dose: 15 ml Admin: 12/22/17 19:22 Dose: 15 ml Admin: 12/22/17 08:18 Dose: 15 ml Admin: 12/21/17 19:30 Dose: 15 ml Admin: 12/21/17 08:08 Dose: 15 ml Admin: 12/20/17 19:38 Dose: 15 ml Admin: 12/20/17 08:19 Dose: 15 ml Admin: 12/19/17 19:43 Dose: 15 ml Admin: 12/19/17 08:14 Dose: 15 ml Admin: 12/18/17 19:37 Dose: 15 ml Admin: 12/18/17 08:30 Dose: 15 ml Admin: 12/17/17 19:07 Dose: 15 ml Admin: 12/17/17 09:08 Dose: 15 ml Admin: 12/16/17 19:29 Dose: 15 ml Admin: 12/16/17 09:07 Dose: 15 ml Admin: 12/15/17 19:31 Dose: 15 ml Admin: 12/15/17 08:08 Dose: 15 ml Admin: 12/14/17 20:06 Dose: 15 ml Admin: 12/14/17 08:07 Dose: 15 ml Admin: 12/13/17 19:14 Dose: 15 ml Admin: 12/13/17 08:21 Dose: 15 ml Admin: 12/12/17 19:59 Dose: 15 ml Admin: 12/12/17 08:18 Dose: 15 ml Admin: 12/11/17 19:43 Dose: 15 ml Admin: 12/11/17 08:16 Dose: 15 ml Admin: 12/10/17 19:55 Dose: 15 ml Admin: 12/10/17 08:04 Dose: 15 ml Admin: 12/09/17 19:18 Dose: 15 ml Admin: 12/09/17 08:14 Dose: 15 ml Admin: 12/08/17 19:22 Dose: 15 ml Admin: 12/08/17 08:31 Dose: 15 ml Admin: 12/07/17 19:27 Dose: 15 ml Admin: 12/07/17 08:09 Dose: 15 ml Admin: 12/06/17 19:15 Dose: 15 ml Admin: 12/06/17 09:35 Dose: 15 ml Admin: 12/05/17 19:16 Dose: 15 ml Admin: 12/05/17 08:18 Dose: 15 ml Admin: 12/04/17 19:28 Dose: 15 ml Admin: 12/04/17 08:00 Dose: 15 ml Admin: 12/03/17 19:15 Dose: 15 ml Admin: 12/03/17 08:10 Dose: 15 ml Admin: 12/02/17 19:23 Dose: 15 ml Admin: 12/02/17 08:09 Dose: 15 ml Admin: 12/01/17 19:27 Dose: 15 ml Admin: 12/01/17 08:05 Dose: 15 ml Admin: 11/30/17 19:30 Dose: 15 ml Admin: 11/30/17 08:06 Dose: 15 ml Admin: 11/29/17 19:10 Dose: 15 ml Admin: 11/29/17 08:10 Dose: 15 ml Admin: 11/28/17 19:14 Dose: 15 ml Admin: 11/28/17 08:26 Dose: 15 ml Admin: 11/27/17 19:22 Dose: 15 ml Admin: 11/27/17 08:21 Dose: 15 ml Admin: 11/26/17 19:20 Dose: 15 ml Admin: 11/26/17 08:21 Dose: 15 ml Admin: 11/25/17 19:21 Dose: 15 ml Chole[facility]ifer[facility]) [facility] 04/30/18 07:25 Dose: 1,000 units Admin: 04/29/18 07:18 Dose: 1,000 units Admin: 04/28/18 07:44 Dose: 1,000 units Admin: 04/27/18 07:56 Dose: 1,000 units Admin: 04/26/18 08:09 Dose: 1,000 units Admin: 04/25/18 07:55 Dose: 1,000 units Admin: 04/24/18 07:57 Dose: 1,000 units Admin: 04/23/18 07:19 Dose: 1,000 units Admin: 04/22/18 07:29 Dose: 1,000 units Admin: 04/21/18 07:12 Dose: 1,000 units Admin: 04/20/18 08:11 Dose: 1,000 units Admin: 04/19/18 07:43 Dose: 1,000 units Admin: 04/18/18 07:51 Dose: 1,000 units Admin: 04/17/18 07:46 Dose: 1,000 units Admin: 04/16/18 07:54 Dose: 1,000 units Admin: 04/15/18 07:27 Dose: 1,000 units Admin: 04/14/18 07:23 Dose: 1,000 units Admin: 04/13/18 07:54 Dose: 1,000 units Admin: 04/12/18 07:15 Dose: 1,000 units Admin: 04/11/18 07:31 Dose: 1,000 units Admin: 04/10/18 07:14 Dose: 1,000 units Admin: 04/09/18 08:15 Dose: 1,000 units Admin: 04/08/18 08:33 Dose: 1,000 units Admin: 04/07/18 07:25 Dose: 1,000 units Admin: 04/06/18 08:07 Dose: 1,000 units Admin: 04/05/18 07:30 Dose: 1,000 units Admin: 04/04/18 08:27 Dose: 1,000 units Admin: 04/03/18 08:26 Dose: 1,000 units Admin: 04/02/18 07:21 Dose: 1,000 units Admin: 04/01/18 08:33 Dose: 1,000 units Admin: 03/31/18 07:19 Dose: 1,000 units Admin: 03/30/18 07:29 Dose: 1,000 units Admin: 03/29/18 07:59 Dose: 1,000 units Admin: 03/28/18 07:30 Dose: 1,000 units Admin: 03/27/18 07:59 Dose: 1,000 units Admin: 03/26/18 07:56 Dose: 1,000 units Admin: 03/25/18 07:39 Dose: 1,000 units Admin: 03/24/18 07:22 Dose: 1,000 units Admin: 03/23/18 07:25 Dose: 1,000 units Admin: 03/22/18 07:21 Dose: 1,000 units Admin: 03/21/18 07:19 Dose: 1,000 units Admin: 03/20/18 07:22 Dose: 1,000 units Admin: 03/19/18 08:04 Dose: 1,000 units Admin: 03/18/18 08:09 Dose: 1,000 units Admin: 03/17/18 07:38 Dose: 1,000 units Admin: 03/16/18 08:22 Dose: 1,000 units Admin: 03/15/18 08:20 Dose: 1,000 units Admin: 03/14/18 08:17 Dose: 1,000 units Admin: 03/13/18 07:57 Dose: 1,000 units Admin: 03/12/18 07:38 Dose: 1,000 units Admin: 03/11/18 08:00 Dose: 1,000 units Admin: 03/10/18 08:31 Dose: 1,000 units Admin: 03/09/18 08:21 Dose: 1,000 units Admin: 03/08/18 08:01 Dose: 1,000 units Admin: 03/07/18 08:00 Dose: 1,000 units Admin: 03/06/18 08:19 Dose: 1,000 units Admin: 03/05/18 08:03 Dose: 1,000 units Admin: 03/04/18 08:15 Dose: 1,000 units Admin: 03/03/18 07:17 Dose: 1,000 units Admin: 03/02/18 08:00 Dose: 1,000 units Admin: 03/01/18 07:40 Dose: 1,000 units Admin: 02/28/18 07:50 Dose: 1,000 units Admin: 02/27/18 08:15 Dose: 1,000 units Admin: 02/26/18 08:16 Dose: 1,000 units Admin: 02/25/18 08:05 Dose: 1,000 units Admin: 02/24/18 08:22 Dose: 1,000 units Admin: 02/23/18 07:53 Dose: 1,000 units Admin: 02/22/18 08:20 Dose: 1,000 units Admin: 02/21/18 08:10 Dose: 1,000 units Admin: 02/20/18 08:08 Dose: 1,000 units Admin: 02/19/18 08:14 Dose: 1,000 units Admin: 02/18/18 07:44 Dose: 1,000 units Admin: 02/17/18 09:40 Dose: Not Given Admin: 02/16/18 08:16 Dose: 1,000 units Admin: 02/15/18 08:12 Dose: 1,000 units Admin: 02/14/18 07:47 Dose: 1,000 units Admin: 02/13/18 07:42 Dose: 1,000 units Admin: 02/12/18 08:33 Dose: 1,000 units Admin: 02/11/18 07:36 Dose: 1,000 units Admin: 02/10/18 08:10 Dose: 1,000 units Admin: 02/09/18 08:50 Dose: 1,000 units Admin: 02/08/18 08:15 Dose: 1,000 units Admin: 02/07/18 07:24 Dose: 1,000 units Admin: 02/06/18 07:43 Dose: 1,000 units Admin: 02/05/18 08:15 Dose: 1,000 units Admin: 02/04/18 08:06 Dose: 1,000 units Admin: 02/03/18 08:15 Dose: 1,000 units Admin: 02/02/18 08:47 Dose: 1,000 units Admin: 02/01/18 08:01 Dose: 1,000 units Admin: 01/31/18 08:24 Dose: 1,000 units Admin: 01/30/18 08:16 Dose: 1,000 units Admin: 01/29/18 07:39 Dose: 1,000 units Admin: 01/28/18 07:38 Dose: 1,000 units Admin: 01/27/18 07:28 Dose: 1,000 units Admin: 01/26/18 07:40 Dose: 1,000 units Admin: 01/25/18 07:45 Dose: 1,000 units Admin: 01/24/18 08:10 Dose: 1,000 units Admin: 01/23/18 08:13 Dose: 1,000 units Admin: 01/22/18 08:25 Dose: 1,000 units Admin: 01/21/18 07:50 Dose: 1,000 units Admin: 01/20/18 07:20 Dose: 1,000 units Admin: 01/19/18 08:24 Dose: 1,000 units Admin: 01/18/18 07:24 Dose: 1,000 units Admin: 01/17/18 07:24 Dose: 1,000 units Admin: 01/16/18 07:46 Dose: 1,000 units Admin: 01/15/18 07:59 Dose: 1,000 units Admin: 01/14/18 07:40 Dose: 1,000 units Admin: 01/13/18 08:17 Dose: 1,000 units Admin: 01/12/18 08:18 Dose: 1,000 units Admin: 01/11/18 08:44 Dose: 1,000 units Admin: 01/10/18 08:27 Dose: 1,000 units Admin: 01/09/18 08:32 Dose: 1,000 units Admin: 01/08/18 07:29 Dose: 1,000 units Admin: 01/07/18 07:33 Dose: 1,000 units Admin: 01/06/18 07:33 Dose: 1,000 units Admin: 01/05/18 08:14 Dose: 1,000 units Admin: 01/04/18 08:18 Dose: 1,000 units Admin: 01/03/18 08:16 Dose: 1,000 units Admin: 01/02/18 08:08 Dose: 1,000 units Admin: 01/01/18 07:29 Dose: 1,000 units Admin: 12/31/17 07:23 Dose: 1,000 units Admin: 12/30/17 08:26 Dose: 1,000 units Admin: 12/29/17 08:13 Dose: 1,000 units Admin: 12/28/17 07:27 Dose: 1,000 units Admin: 12/27/17 07:12 Dose: 1,000 units Admin: 12/26/17 07:40 Dose: 1,000 units Admin: 12/25/17 08:07 Dose: 1,000 units Admin: 12/24/17 08:18 Dose: 1,000 units Admin: 12/23/17 07:37 Dose: 1,000 units Admin: 12/22/17 08:17 Dose: 1,000 units Admin: 12/21/17 08:08 Dose: 1,000 units Admin: 12/20/17 08:18 Dose: 1,000 units Admin: 12/19/17 07:54 Dose: 1,000 units Admin: 12/18/17 08:29 Dose: 1,000 units Admin: 12/17/17 07:36 Dose: 1,000 units Admin: 12/16/17 07:25 Dose: 1,000 units Admin: 12/15/17 07:28 Dose: 1,000 units Admin: 12/14/17 08:06 Dose: 1,000 units Admin: 12/13/17 08:21 Dose: 1,000 units Admin: 12/12/17 08:16 Dose: 1,000 units Admin: 12/11/17 07:55 Dose: 1,000 units Admin: 12/10/17 08:03 Dose: 1,000 units Admin: 12/09/17 08:14 Dose: 1,000 units Admin: 12/08/17 07:23 Dose: 1,000 units Admin: 12/07/17 07:31 Dose: 1,000 units Admin: 12/06/17 07:34 Dose: 1,000 units Admin: 12/05/17 08:18 Dose: 1,000 units Admin: 12/04/17 07:58 Dose: 1,000 units Admin: 12/03/17 08:09 Dose: 1,000 units Admin: 12/02/17 08:08 Dose: 1,000 units Admin: 12/01/17 08:05 Dose: 1,000 units Admin: 11/30/17 08:05 Dose: 1,000 units Admin: 11/29/17 08:10 Dose: 1,000 units Admin: 11/28/17 08:26 Dose: 1,000 units Admin: 11/27/17 08:20 Dose: 1,000 units Admin: 11/26/17 08:20 Dose: 1,000 units Citalopram Hydrobromide (Celexa) 20 mg PO QAM [facility] Admin: 04/30/18 07:22 Dose: 20 mg Admin: 04/29/18 07:15 Dose: 20 mg Admin: 04/28/18 07:43 Dose: 20 mg Admin: 04/27/18 07:54 Dose: 20 mg Admin: 04/26/18 08:05 Dose: 20 mg Admin: 04/25/18 07:52 Dose: 20 mg Admin: 04/24/18 07:55 Dose: 20 mg Admin: 04/23/18 07:16 Dose: 20 mg Admin: 04/22/18 07:27 Dose: 20 mg Admin: 04/21/18 07:10 Dose: 20 mg Admin: 04/20/18 08:08 Dose: 20 mg Admin: 04/19/18 07:41 Dose: 20 mg Admin: 04/18/18 07:49 Dose: 20 mg Admin: 04/17/18 07:44 Dose: 20 mg Admin: 04/16/18 07:52 Dose: 20 mg Admin: 04/15/18 07:25 Dose: 20 mg Admin: 04/14/18 07:21 Dose: 20 mg Admin: 04/13/18 07:52 Dose: 20 mg Admin: 04/12/18 07:13 Dose: 20 mg Admin: 04/11/18 07:29 Dose: 20 mg Admin: 04/10/18 07:12 Dose: 20 mg Admin: 04/09/18 08:09 Dose: 20 mg Admin: 04/08/18 08:27 Dose: 20 mg Admin: 04/07/18 07:23 Dose: 20 mg Admin: 04/06/18 08:04 Dose: 20 mg Admin: 04/05/18 07:27 Dose: 20 mg Admin: 04/04/18 08:24 Dose: 20 mg Admin: 04/03/18 08:22 Dose: 20 mg Admin: 04/02/18 07:19 Dose: 20 mg Admin: 04/01/18 08:22 Dose: 20 mg Admin: 03/31/18 07:16 Dose: 20 mg Admin: 03/30/18 07:27 Dose: 20 mg Admin: 03/29/18 07:56 Dose: 20 mg Admin: 03/28/18 07:27 Dose: 20 mg Admin: 03/27/18 07:56 Dose: 20 mg Admin: 03/26/18 07:53 Dose: 20 mg Admin: 03/25/18 07:37 Dose: 20 mg Admin: 03/24/18 07:20 Dose: 20 mg Admin: 03/23/18 07:22 Dose: 20 mg Admin: 03/22/18 07:18 Dose: 20 mg Admin: 03/21/18 07:17 Dose: 20 mg Admin: 03/20/18 07:20 Dose: 20 mg Admin: 03/19/18 08:01 Dose: 20 mg Admin: 03/18/18 08:06 Dose: 20 mg Admin: 03/17/18 07:36 Dose: 20 mg Admin: 03/16/18 08:19 Dose: 20 mg Admin: 03/15/18 08:15 Dose: 20 mg Admin: 03/14/18 08:12 Dose: 20 mg Admin: 03/13/18 07:57 Dose: 20 mg Admin: 03/12/18 07:35 Dose: 20 mg Admin: 03/11/18 07:56 Dose: 20 mg Admin: 03/10/18 08:30 Dose: 20 mg Admin: 03/09/18 08:19 Dose: 20 mg Admin: 03/08/18 07:56 Dose: 20 mg Admin: 03/07/18 07:58 Dose: 20 mg Admin: 03/06/18 08:17 Dose: 20 mg Admin: 03/05/18 07:59 Dose: 20 mg Admin: 03/04/18 08:09 Dose: 20 mg Admin: 03/03/18 07:14 Dose: 20 mg Admin: 03/02/18 07:57 Dose: 20 mg Admin: 03/01/18 07:38 Dose: 20 mg Admin: 02/28/18 07:45 Dose: 20 mg Admin: 02/27/18 08:12 Dose: 20 mg Admin: 02/26/18 08:14 Dose: 20 mg Admin: 02/25/18 08:00 Dose: 20 mg Admin: 02/24/18 08:15 Dose: 20 mg Admin: 02/23/18 07:50 Dose: 20 mg Admin: 02/22/18 08:17 Dose: 20 mg Admin: 02/21/18 08:07 Dose: 20 mg Admin: 02/20/18 08:05 Dose: 20 mg Admin: 02/19/18 08:09 Dose: 20 mg Admin: 02/18/18 07:40 Dose: 20 mg Admin: 02/17/18 09:37 Dose: Not Given Admin: 02/16/18 08:14 Dose: 20 mg Admin: 02/15/18 08:10 Dose: 20 mg Admin: 02/14/18 07:45 Dose: 20 mg Admin: 02/13/18 07:40 Dose: 20 mg Admin: 02/12/18 08:30 Dose: 20 mg Admin: 02/11/18 07:34 Dose: 20 mg Admin: 02/10/18 08:07 Dose: 20 mg Admin: 02/09/18 08:46 Dose: 20 mg Admin: 02/08/18 08:10 Dose: 20 mg Admin: 02/07/18 07:20 Dose: 20 mg Admin: 02/06/18 07:41 Dose: 20 mg Admin: 02/05/18 08:12 Dose: 20 mg Admin: 02/04/18 08:04 Dose: 20 mg Admin: 02/03/18 08:12 Dose: 20 mg Admin: 02/02/18 08:45 Dose: 20 mg Admin: 02/01/18 07:57 Dose: 20 mg Admin: 01/31/18 08:20 Dose: 20 mg Admin: 01/30/18 08:12 Dose: 20 mg Admin: 01/29/18 07:37 Dose: 20 mg Admin: 01/28/18 07:35 Dose: 20 mg Admin: 01/27/18 07:26 Dose: 20 mg Admin: 01/26/18 07:38 Dose: 20 mg Admin: 01/25/18 07:42 Dose: 20 mg Admin: 01/24/18 08:08 Dose: 20 mg Admin: 01/23/18 08:10 Dose: 20 mg Admin: 01/22/18 08:20 Dose: 20 mg Admin: 01/21/18 07:47 Dose: 20 mg Admin: 01/20/18 07:17 Dose: 20 mg Admin: 01/19/18 08:19 Dose: 20 mg Admin: 01/18/18 07:22 Dose: 20 mg Admin: 01/17/18 07:21 Dose: 20 mg Admin: 01/16/18 07:39 Dose: 20 mg Admin: 01/15/18 07:57 Dose: 20 mg Admin: 01/14/18 07:38 Dose: 20 mg Admin: 01/13/18 08:16 Dose: 20 mg Admin: 01/12/18 08:14 Dose: 20 mg Admin: 01/11/18 08:39 Dose: 20 mg Admin: 01/10/18 08:23 Dose: 20 mg Admin: 01/09/18 08:29 Dose: 20 mg Admin: 01/08/18 07:26 Dose: 20 mg Admin: 01/07/18 07:30 Dose: 20 mg Admin: 01/06/18 07:31 Dose: 20 mg Admin: 01/05/18 08:11 Dose: 20 mg Admin: 01/04/18 08:16 Dose: 20 mg Admin: 01/03/18 08:09 Dose: 20 mg Admin: 01/02/18 08:04 Dose: 20 mg Admin: 01/01/18 07:26 Dose: 20 mg Admin: 12/31/17 07:20 Dose: 20 mg Admin: 12/30/17 08:26 Dose: 20 mg Admin: 12/29/17 08:11 Dose: 20 mg Admin: 12/28/17 07:25 Dose: 20 mg Admin: 12/27/17 07:10 Dose: 20 mg Admin: 12/26/17 07:37 Dose: 20 mg Admin: 12/25/17 08:04 Dose: 20 mg Admin: 12/24/17 08:16 Dose: 20 mg Admin: 12/23/17 07:35 Dose: 20 mg Admin: 12/22/17 08:12 Dose: 20 mg Admin: 12/21/17 08:04 Dose: 20 mg Admin: 12/20/17 08:14 Dose: 20 mg Admin: 12/19/17 07:52 Dose: 20 mg Admin: 12/18/17 08:24 Dose: 20 mg Admin: 12/17/17 07:34 Dose: 20 mg Admin: 12/16/17 07:23 Dose: 20 mg Admin: 12/15/17 07:26 Dose: 20 mg Admin: 12/14/17 08:04 Dose: 20 mg Admin: 12/13/17 08:18 Dose: 20 mg Admin: 12/12/17 08:14 Dose: 20 mg Admin: 12/11/17 07:50 Dose: 20 mg Admin: 12/10/17 07:58 Dose: 20 mg Admin: 12/09/17 08:11 Dose: 20 mg Admin: 12/08/17 07:21 Dose: 20 mg Admin: 12/07/17 07:29 Dose: 20 mg Admin: 12/06/17 07:31 Dose: 20 mg Admin: 12/05/17 08:11 Dose: 20 mg Admin: 12/04/17 07:54 Dose: 20 mg Admin: 12/03/17 08:04 Dose: 20 mg Admin: 12/02/17 08:06 Dose: 20 mg Admin: 12/01/17 08:02 Dose: 20 mg Admin: 11/30/17 08:02 Dose: 20 mg Admin: 11/29/17 08:07 Dose: 20 mg Admin: 11/28/17 08:23 Dose: 20 mg Admin: 11/27/17 08:16 Dose: 20 mg Admin: 11/26/17 08:14 Dose: 20 mg Clotrimazole (Lotrimin Af 1% Crm) 1 gm TOP BID PRN PRN Reason: Rash Last Admin: 04/30/18 06:52 Dose: 1 applic Admin: 04/29/18 20:57 Dose: 1 applic Admin: 04/28/18 19:37 Dose: 1 applic Admin: 04/28/18 07:30 Dose: 1 applic Admin: 04/27/18 19:40 Dose: 1 applic Admin: 03/29/18 20:01 Dose: 1 applic Admin: 03/29/18 08:00 Dose: 1 applic Admin: 03/28/18 20:08 Dose: 1 applic Admin: 03/28/18 08:05 Dose: 1 applic Admin: 03/24/18 19:40 Dose: 1 applic Admin: 03/23/18 07:26 Dose: 1 applic Admin: 03/22/18 07:21 Dose: 1 applic Admin: 03/21/18 07:19 Dose: 1 applic Admin: 03/19/18 19:25 Dose: 1 applic Admin: 03/19/18 07:30 Dose: 1 applic Admin: 03/17/18 21:39 Dose: 1 applic Admin: 03/17/18 08:11 Dose: 1 applic Admin: 03/16/18 20:00 Dose: 1 applic Admin: 03/16/18 08:31 Dose: 1 applic Admin: 03/15/18 19:50 Dose: 1 applic Admin: 03/14/18 19:41 Dose: 1 applic Admin: 03/07/18 19:07 Dose: 1 applic Admin: 02/23/18 07:54 Dose: 1 applic Admin: 02/22/18 19:45 Dose: 1 applic Admin: 02/21/18 19:30 Dose: 1 applic Admin: 02/21/18 05:53 Dose: 1 applic Admin: 02/20/18 08:00 Dose: 1 applic Admin: 02/19/18 19:44 Dose: 1 applic Admin: 02/19/18 08:00 Dose: 1 applic Admin: 02/18/18 19:35 Dose: 1 applic Admin: 02/18/18 07:45 Dose: 1 applic Admin: 02/15/18 19:42 Dose: 1 applic Admin: 02/15/18 08:00 Dose: 1 applic Admin: 02/14/18 19:53 Dose: 1 applic Admin: 02/13/18 08:00 Dose: 1 applic Admin: 02/09/18 20:02 Dose: 1 applic Admin: 02/09/18 07:45 Dose: 1 applic Admin: 02/06/18 19:58 Dose: 1 applic Admin: 02/06/18 07:44 Dose: 1 applic Admin: 02/06/18 00:16 Dose: 1 applic Admin: 02/05/18 08:16 Dose: 1 applic Admin: 02/04/18 09:25 Dose: 1 applic Admin: 02/04/18 00:56 Dose: 1 applic Admin: 02/03/18 08:15 Dose: 1 applic Admin: 01/27/18 07:28 Dose: 1 applic Admin: 01/26/18 19:39 Dose: 1 applic Admin: 01/26/18 08:07 Dose: 1 applic Admin: 01/25/18 19:55 Dose: 1 applic Admin: 01/21/18 07:52 Dose: 1 applic Admin: 01/20/18 07:20 Dose: 1 applic Admin: 01/19/18 19:18 Dose: 1 applic Admin: 01/18/18 08:16 Dose: 1 applic Admin: 01/17/18 20:21 Dose: 1 applic Admin: 01/17/18 07:55 Dose: 1 applic Admin: 01/16/18 19:51 Dose: 1 applic Admin: 01/15/18 19:40 Dose: 1 applic Admin: 01/14/18 19:32 Dose: 1 applic Admin: 01/13/18 19:46 Dose: 1 applic Admin: 01/13/18 08:17 Dose: 1 applic Admin: 01/12/18 08:16 Dose: 1 applic Admin: 01/11/18 08:38 Dose: 1 applic Admin: 01/08/18 20:07 Dose: 1 applic Admin: 01/08/18 07:29 Dose: 1 applic Admin: 01/07/18 19:29 Dose: 1 applic Admin: 01/07/18 08:01 Dose: 1 applic Admin: 01/06/18 11:16 Dose: 1 applic Admin: 01/04/18 08:19 Dose: 1 applic Admin: 01/03/18 19:27 Dose: 1 applic Admin: 01/03/18 01:00 Dose: 1 applic Admin: 01/01/18 20:05 Dose: 1 applic Admin: 12/31/17 19:31 Dose: 1 applic Admin: 12/31/17 08:18 Dose: 1 applic Admin: 12/09/17 19:18 Dose: 1 applic Admin: 12/07/17 19:34 Dose: 1 applic Admin: 12/06/17 19:53 Dose: 1 applic Admin: 12/04/17 08:00 Dose: 1 applic Admin: 12/03/17 19:12 Dose: 1 applic Admin: 12/02/17 20:24 Dose: 1 applic Admin: 12/02/17 08:00 Dose: 1 applic Admin: 12/01/17 08:06 Dose: 1 applic Admin: 11/30/17 19:32 Dose: 1 applic Admin: 11/30/17 08:06 Dose: 1 applic Admin: 11/29/17 20:35 Dose: 1 applic Admin: 11/28/17 21:27 Dose: 1 applic Admin: 11/28/17 08:00 Dose: 1 applic Admin: 11/27/17 07:30 Dose: 1 applic Admin: 11/26/17 19:27 Dose: 1 applic Cyanocobalamin (Vitamin B12) 1,000 mcg PO QAM [facility] Last Admin: 04/30/18 07:25 Dose: 1,000 mcg Admin: 04/29/18 07:18 Dose: 1,000 mcg Admin: 04/28/18 07:44 Dose: 1,000 mcg Admin: 04/27/18 07:56 Dose: 1,000 mcg Admin: 04/26/18 08:08 Dose: 1,000 mcg Admin: 04/25/18 07:55 Dose: 1,000 mcg Admin: 04/24/18 07:57 Dose: 1,000 mcg Admin: 04/23/18 07:19 Dose: 1,000 mcg Admin: 04/22/18 07:28 Dose: 1,000 mcg Admin: 04/21/18 07:12 Dose: 1,000 mcg Admin: 04/20/18 08:10 Dose: 1,000 mcg Admin: 04/19/18 07:43 Dose: 1,000 mcg Admin: 04/18/18 07:50 Dose: 1,000 mcg Admin: 04/17/18 07:45 Dose: 1,000 mcg Admin: 04/16/18 07:54 Dose: 1,000 mcg Admin: 04/15/18 07:27 Dose: 1,000 mcg Admin: 04/14/18 07:23 Dose: 1,000 mcg Admin: 04/13/18 07:54 Dose: 1,000 mcg Admin: 04/12/18 07:15 Dose: 1,000 mcg Admin: 04/11/18 07:31 Dose: 1,000 mcg Admin: 04/10/18 07:13 Dose: 1,000 mcg Admin: 04/09/18 08:14 Dose: 1,000 mcg Admin: 04/08/18 08:33 Dose: 1,000 mcg Admin: 04/07/18 07:25 Dose: 1,000 mcg Admin: 04/06/18 08:07 Dose: 1,000 mcg Admin: 04/05/18 07:30 Dose: 1,000 mcg Admin: 04/04/18 08:26 Dose: 1,000 mcg Admin: 04/03/18 08:26 Dose: 1,000 mcg Admin: 04/02/18 07:20 Dose: 1,000 mcg Admin: 04/01/18 08:34 Dose: 1,000 mcg Admin: 03/31/18 07:19 Dose: 1,000 mcg Admin: 03/30/18 07:29 Dose: 1,000 mcg Admin: 03/29/18 07:59 Dose: 1,000 mcg Admin: 03/28/18 07:29 Dose: 1,000 mcg Admin: 03/27/18 07:59 Dose: 1,000 mcg Admin: 03/26/18 07:57 Dose: 1,000 mcg Admin: 03/25/18 07:39 Dose: 1,000 mcg Admin: 03/24/18 07:21 Dose: 1,000 mcg Admin: 03/23/18 07:25 Dose: 1,000 mcg Admin: 03/22/18 07:21 Dose: 1,000 mcg Admin: 03/21/18 07:19 Dose: 1,000 mcg Admin: 03/20/18 07:22 Dose: 1,000 mcg Admin: 03/19/18 08:04 Dose: 1,000 mcg Admin: 03/18/18 08:09 Dose: 1,000 mcg Admin: 03/17/18 07:37 Dose: 1,000 mcg Admin: 03/16/18 08:22 Dose: 1,000 mcg Admin: 03/15/18 08:19 Dose: 1,000 mcg Admin: 03/14/18 08:17 Dose: 1,000 mcg Admin: 03/13/18 07:57 Dose: 1,000 mcg Admin: 03/12/18 07:38 Dose: 1,000 mcg Admin: 03/11/18 07:59 Dose: 1,000 mcg Admin: 03/10/18 08:31 Dose: 1,000 mcg Admin: 03/09/18 08:21 Dose: 1,000 mcg Admin: 03/08/18 07:59 Dose: 1,000 mcg Admin: 03/07/18 08:00 Dose: 1,000 mcg Admin: 03/06/18 08:19 Dose: 1,000 mcg Admin: 03/05/18 08:02 Dose: 1,000 mcg Admin: 03/04/18 08:16 Dose: 1,000 mcg Admin: 03/03/18 07:16 Dose: 1,000 mcg Admin: 03/02/18 08:00 Dose: 1,000 mcg Admin: 03/01/18 07:40 Dose: 1,000 mcg Admin: 02/28/18 07:47 Dose: 1,000 mcg Admin: 02/27/18 08:15 Dose: 1,000 mcg Admin: 02/26/18 08:16 Dose: 1,000 mcg Admin: 02/25/18 08:05 Dose: 1,000 mcg Admin: 02/24/18 08:21 Dose: 1,000 mcg Admin: 02/23/18 07:53 Dose: 1,000 mcg Admin: 02/22/18 08:19 Dose: 1,000 mcg Admin: 02/21/18 08:11 Dose: 1,000 mcg Admin: 02/20/18 08:08 Dose: 1,000 mcg Admin: 02/19/18 08:14 Dose: 1,000 mcg Admin: 02/18/18 07:43 Dose: 1,000 mcg Admin: 02/17/18 09:39 Dose: Not Given Admin: 02/16/18 08:16 Dose: 1,000 mcg Admin: 02/15/18 08:12 Dose: 1,000 mcg Admin: 02/14/18 07:47 Dose: 1,000 mcg Admin: 02/13/18 07:42 Dose: 1,000 mcg Admin: 02/12/18 08:34 Dose: 1,000 mcg Admin: 02/11/18 07:35 Dose: 1,000 mcg Admin: 02/10/18 08:10 Dose: 1,000 mcg Admin: 02/09/18 08:50 Dose: 1,000 mcg Admin: 02/08/18 08:15 Dose: 1,000 mcg Admin: 02/07/18 07:23 Dose: 1,000 mcg Admin: 02/06/18 07:43 Dose: 1,000 mcg Admin: 02/05/18 08:15 Dose: 1,000 mcg Admin: 02/04/18 08:06 Dose: 1,000 mcg Admin: 02/03/18 08:16 Dose: 1,000 mcg Admin: 02/02/18 08:47 Dose: 1,000 mcg Admin: 02/01/18 08:01 Dose: 1,000 mcg Admin: 01/31/18 08:24 Dose: 1,000 mcg Admin: 01/30/18 08:16 Dose: 1,000 mcg Admin: 01/29/18 07:39 Dose: 1,000 mcg Admin: 01/28/18 07:38 Dose: 1,000 mcg Admin: 01/27/18 07:28 Dose: 1,000 mcg Admin: 01/26/18 07:40 Dose: 1,000 mcg Admin: 01/25/18 07:45 Dose: 1,000 mcg Admin: 01/24/18 08:10 Dose: 1,000 mcg Admin: 01/23/18 08:13 Dose: 1,000 mcg Admin: 01/22/18 08:24 Dose: 1,000 mcg Admin: 01/21/18 07:50 Dose: 1,000 mcg Admin: 01/20/18 07:19 Dose: 1,000 mcg Admin: 01/19/18 08:23 Dose: 1,000 mcg Admin: 01/18/18 07:24 Dose: 1,000 mcg Admin: 01/17/18 07:24 Dose: 1,000 mcg Admin: 01/16/18 07:46 Dose: 1,000 mcg Admin: 01/15/18 07:59 Dose: 1,000 mcg Admin: 01/14/18 07:40 Dose: 1,000 mcg Admin: 01/13/18 08:18 Dose: 1,000 mcg Admin: 01/12/18 08:18 Dose: 1,000 mcg Admin: 01/11/18 08:44 Dose: 1,000 mcg Admin: 01/10/18 08:26 Dose: 1,000 mcg Admin: 01/09/18 08:31 Dose: 1,000 mcg Admin: 01/08/18 07:28 Dose: 1,000 mcg Admin: 01/07/18 07:33 Dose: 1,000 mcg Admin: 01/06/18 07:33 Dose: 1,000 mcg Admin: 01/05/18 08:13 Dose: 1,000 mcg Admin: 01/04/18 08:18 Dose: 1,000 mcg Admin: 01/03/18 08:15 Dose: 1,000 mcg Admin: 01/02/18 08:07 Dose: 1,000 mcg Admin: 01/01/18 07:28 Dose: 1,000 mcg Admin: 12/31/17 07:23 Dose: 1,000 mcg Admin: 12/30/17 08:27 Dose: 1,000 mcg Admin: 12/29/17 08:13 Dose: 1,000 mcg Admin: 12/28/17 07:27 Dose: 1,000 mcg Admin: 12/27/17 07:12 Dose: 1,000 mcg Admin: 12/26/17 07:39 Dose: 1,000 mcg Admin: 12/25/17 08:07 Dose: 1,000 mcg Admin: 12/24/17 08:18 Dose: 1,000 mcg Admin: 12/23/17 07:37 Dose: 1,000 mcg Admin: 12/22/17 08:17 Dose: 1,000 mcg Admin: 12/21/17 08:07 Dose: 1,000 mcg Admin: 12/20/17 08:18 Dose: 1,000 mcg Admin: 12/19/17 07:54 Dose: 1,000 mcg Admin: 12/18/17 08:29 Dose: 1,000 mcg Admin: 12/17/17 07:35 Dose: 1,000 mcg Admin: 12/16/17 07:25 Dose: 1,000 mcg Admin: 12/15/17 07:28 Dose: 1,000 mcg Admin: 12/14/17 08:06 Dose: 1,000 mcg Admin: 12/13/17 08:20 Dose: 1,000 mcg Admin: 12/12/17 08:16 Dose: 1,000 mcg Admin: 12/11/17 07:54 Dose: 1,000 mcg Admin: 12/10/17 08:03 Dose: 1,000 mcg Admin: 12/09/17 08:14 Dose: 1,000 mcg Admin: 12/08/17 07:23 Dose: 1,000 mcg Admin: 12/07/17 07:31 Dose: 1,000 mcg Admin: 12/06/17 07:34 Dose: 1,000 mcg Admin: 12/05/17 08:17 Dose: 1,000 mcg Admin: 12/04/17 07:58 Dose: 1,000 mcg Admin: 12/03/17 08:08 Dose: 1,000 mcg Admin: 12/02/17 08:08 Dose: 1,000 mcg Admin: 12/01/17 08:05 Dose: 1,000 mcg Admin: 11/30/17 08:04 Dose: 1,000 mcg Admin: 11/29/17 08:10 Dose: 1,000 mcg Admin: 11/28/17 08:25 Dose: 1,000 mcg Admin: 11/27/17 08:20 Dose: 1,000 mcg Admin: 11/26/17 08:20 Dose: 1,000 mcg Diphenhydramine HCl (Benadryl) 25 mg PO Q4H PRN PRN Reason: Itching Fludrocortisone Acetate (Florinef) 0.1 mg PO BEDTIME MIESHA Last Admin: 04/29/18 19:18 Dose: 0.1 mg Admin: 04/28/18 19:23 Dose: 0.1 mg Admin: 04/27/18 19:24 Dose: 0.1 mg Admin: 04/26/18 19:12 Dose: 0.1 mg Admin: 04/25/18 19:30 Dose: 0.1 mg Admin: 04/24/18 19:17 Dose: 0.1 mg Admin: 04/23/18 19:57 Dose: 0.1 mg Admin: 04/22/18 20:07 Dose: 0.1 mg Admin: 04/21/18 19:22 Dose: 0.1 mg Admin: 04/20/18 19:19 Dose: 0.1 mg Admin: 04/19/18 19:22 Dose: 0.1 mg Admin: 04/18/18 19:18 Dose: 0.1 mg Admin: 04/17/18 20:08 Dose: 0.1 mg Admin: 04/16/18 19:27 Dose: 0.1 mg Admin: 04/15/18 19:13 Dose: 0.1 mg Admin: 04/14/18 19:20 Dose: 0.1 mg Admin: 04/13/18 19:28 Dose: 0.1 mg Admin: 04/12/18 19:34 Dose: 0.1 mg Admin: 04/11/18 19:21 Dose: 0.1 mg Admin: 04/10/18 19:23 Dose: 0.1 mg Admin: 04/09/18 19:42 Dose: 0.1 mg Admin: 04/08/18 19:34 Dose: 0.1 mg Admin: 04/07/18 19:18 Dose: 0.1 mg Admin: 04/06/18 19:27 Dose: 0.1 mg Admin: 04/05/18 19:37 Dose: 0.1 mg Admin: 04/04/18 19:27 Dose: 0.1 mg Admin: 04/03/18 19:22 Dose: 0.1 mg Admin: 04/02/18 19:13 Dose: 0.1 mg Admin: 04/01/18 19:22 Dose: 0.1 mg Admin: 03/31/18 19:33 Dose: 0.1 mg Admin: 03/31/18 03:22 Dose: Not Given Admin: 03/29/18 19:59 Dose: 0.1 mg Admin: 03/28/18 20:03 Dose: 0.1 mg Admin: 03/27/18 19:46 Dose: 0.1 mg Admin: 03/26/18 19:29 Dose: 0.1 mg Admin: 03/25/18 19:22 Dose: 0.1 mg Admin: 03/24/18 19:31 Dose: 0.1 mg Admin: 03/23/18 19:18 Dose: 0.1 mg Admin: 03/22/18 19:11 Dose: 0.1 mg Admin: 03/21/18 19:16 Dose: 0.1 mg Admin: 03/20/18 19:12 Dose: 0.1 mg Admin: 03/19/18 19:24 Dose: 0.1 mg Admin: 03/18/18 20:01 Dose: 0.1 mg Admin: 03/17/18 19:32 Dose: 0.1 mg Admin: 03/16/18 19:57 Dose: 0.1 mg Admin: 03/15/18 19:50 Dose: 0.1 mg Admin: 03/14/18 19:36 Dose: 0.1 mg Admin: 03/13/18 19:50 Dose: 0.1 mg Admin: 03/12/18 19:09 Dose: 0.1 mg Admin: 03/11/18 19:20 Dose: 0.1 mg Admin: 03/10/18 19:50 Dose: 0.1 mg Admin: 03/09/18 19:14 Dose: 0.1 mg Admin: 03/08/18 19:32 Dose: 0.1 mg Admin: 03/07/18 19:06 Dose: 0.1 mg Admin: 03/06/18 19:45 Dose: 0.1 mg Admin: 03/05/18 19:43 Dose: 0.1 mg Admin: 03/04/18 19:27 Dose: 0.1 mg Admin: 03/03/18 19:30 Dose: 0.1 mg Admin: 03/02/18 19:28 Dose: 0.1 mg Admin: 03/01/18 19:17 Dose: 0.1 mg Admin: 02/28/18 19:12 Dose: 0.1 mg Admin: 02/27/18 19:23 Dose: 0.1 mg Admin: 02/26/18 19:36 Dose: 0.1 mg Admin: 02/25/18 19:38 Dose: 0.1 mg Admin: 02/24/18 19:32 Dose: 0.1 mg Admin: 02/23/18 19:26 Dose: 0.1 mg Admin: 02/22/18 19:25 Dose: 0.1 mg Admin: 02/21/18 19:39 Dose: 0.1 mg Admin: 02/20/18 19:32 Dose: 0.1 mg Admin: 02/19/18 19:08 Dose: 0.1 mg Admin: 02/18/18 19:36 Dose: 0.1 mg Admin: 02/17/18 19:17 Dose: 0.1 mg Admin: 02/16/18 19:37 Dose: 0.1 mg Admin: 02/15/18 19:39 Dose: 0.1 mg Admin: 02/14/18 19:52 Dose: 0.1 mg Admin: 02/13/18 19:38 Dose: 0.1 mg Admin: 02/12/18 19:43 Dose: 0.1 mg Admin: 02/11/18 19:56 Dose: 0.1 mg Admin: 02/10/18 19:22 Dose: 0.1 mg Admin: 02/09/18 20:04 Dose: 0.1 mg Admin: 02/08/18 19:16 Dose: 0.1 mg Admin: 02/07/18 19:23 Dose: 0.1 mg Admin: 02/06/18 19:56 Dose: 0.1 mg Admin: 02/05/18 20:13 Dose: 0.1 mg Admin: 02/04/18 19:16 Dose: 0.1 mg Admin: 02/03/18 21:03 Dose: 0.1 mg Admin: 02/02/18 20:18 Dose: 0.1 mg Admin: 02/01/18 19:54 Dose: 0.1 mg Admin: 01/31/18 19:32 Dose: 0.1 mg Admin: 01/30/18 19:37 Dose: 0.1 mg Admin: 01/29/18 19:10 Dose: 0.1 mg Admin: 01/28/18 19:29 Dose: 0.1 mg Admin: 01/27/18 19:37 Dose: 0.1 mg Admin: 01/26/18 19:40 Dose: 0.1 mg Admin: 01/25/18 19:28 Dose: 0.1 mg Admin: 01/24/18 19:52 Dose: 0.1 mg Admin: 01/23/18 19:38 Dose: 0.1 mg Admin: 01/22/18 19:11 Dose: 0.1 mg Admin: 01/21/18 19:40 Dose: 0.1 mg Admin: 01/20/18 19:11 Dose: 0.1 mg Admin: 01/19/18 19:17 Dose: 0.1 mg Admin: 01/18/18 19:06 Dose: 0.1 mg Admin: 01/17/18 19:20 Dose: 0.1 mg Admin: 01/16/18 19:50 Dose: 0.1 mg Admin: 01/15/18 19:39 Dose: 0.1 mg Admin: 01/14/18 19:31 Dose: 0.1 mg Admin: 01/13/18 19:46 Dose: 0.1 mg Admin: 01/12/18 19:37 Dose: 0.1 mg Admin: 01/11/18 19:14 Dose: 0.1 mg Admin: 01/10/18 19:53 Dose: 0.1 mg Admin: 01/09/18 19:29 Dose: 0.1 mg Admin: 01/08/18 19:31 Dose: 0.1 mg Admin: 01/07/18 19:27 Dose: 0.1 mg Admin: 01/06/18 19:16 Dose: 0.1 mg Admin: 01/05/18 19:58 Dose: 0.1 mg Admin: 01/04/18 19:30 Dose: 0.1 mg Admin: 01/03/18 19:25 Dose: 0.1 mg Admin: 01/02/18 19:23 Dose: 0.1 mg Admin: 01/01/18 19:05 Dose: 0.1 mg Admin: 12/31/17 19:29 Dose: 0.1 mg Admin: 12/30/17 19:39 Dose: 0.1 mg Admin: 12/29/17 19:37 Dose: 0.1 mg Admin: 12/28/17 19:07 Dose: 0.1 mg Admin: 12/27/17 19:24 Dose: 0.1 mg Admin: 12/26/17 19:21 Dose: 0.1 mg Admin: 12/25/17 19:49 Dose: 0.1 mg Admin: 12/24/17 19:36 Dose: 0.1 mg Admin: 12/23/17 19:11 Dose: 0.1 mg Admin: 12/22/17 19:22 Dose: 0.1 mg Admin: 12/21/17 19:30 Dose: 0.1 mg Admin: 12/20/17 19:37 Dose: 0.1 mg Admin: 12/19/17 19:42 Dose: 0.1 mg Admin: 12/18/17 19:37 Dose: 0.1 mg Admin: 12/17/17 19:07 Dose: 0.1 mg Admin: 12/16/17 19:29 Dose: 0.1 mg Admin: 12/15/17 19:29 Dose: 0.1 mg Admin: 12/14/17 20:05 Dose: 0.1 mg Admin: 12/13/17 19:14 Dose: 0.1 mg Admin: 12/12/17 19:59 Dose: 0.1 mg Admin: 12/11/17 19:43 Dose: 0.1 mg Admin: 12/10/17 19:54 Dose: 0.1 mg Admin: 12/09/17 19:17 Dose: 0.1 mg Admin: 12/08/17 19:21 Dose: 0.1 mg Admin: 12/07/17 19:27 Dose: 0.1 mg Admin: 12/06/17 19:12 Dose: 0.1 mg Admin: 12/05/17 19:17 Dose: 0.1 mg Admin: 12/04/17 19:27 Dose: 0.1 mg Admin: 12/03/17 19:14 Dose: 0.1 mg Admin: 12/02/17 19:23 Dose: 0.1 mg Admin: 12/01/17 19:27 Dose: 0.1 mg Admin: 11/30/17 19:30 Dose: 0.1 mg Admin: 11/29/17 19:09 Dose: 0.1 mg Admin: 11/28/17 19:13 Dose: 0.1 mg Admin: 11/27/17 19:22 Dose: 0.1 mg Admin: 11/26/17 19:20 Dose: 0.1 mg Admin: 11/25/17 19:20 Dose: 0.1 mg Fludrocortisone Acetate (Florinef) 0.2 mg PO QAM MIESHA [facility] Admin: 04/30/18 07:23 Dose: 0.2 mg Admin: 04/29/18 07:15 Dose: 0.2 mg Admin: 04/28/18 07:43 Dose: 0.2 mg Admin: 04/27/18 07:55 Dose: 0.2 mg Admin: 04/26/18 08:06 Dose: 0.2 mg Admin: 04/25/18 07:52 Dose: 0.2 mg Admin: 04/24/18 07:55 Dose: 0.2 mg Admin: 04/23/18 07:17 Dose: 0.2 mg Admin: 04/22/18 07:27 Dose: 0.2 mg Admin: 04/21/18 07:10 Dose: 0.2 mg Admin: 04/20/18 08:08 Dose: 0.2 mg Admin: 04/19/18 07:42 Dose: 0.2 mg Admin: 04/18/18 07:49 Dose: 0.2 mg Admin: 04/17/18 07:44 Dose: 0.2 mg Admin: 04/16/18 07:52 Dose: 0.2 mg Admin: 04/15/18 07:25 Dose: 0.2 mg Admin: 04/14/18 07:21 Dose: 0.2 mg Admin: 04/13/18 07:52 Dose: 0.2 mg Admin: 04/12/18 07:13 Dose: 0.2 mg Admin: 04/11/18 07:29 Dose: 0.2 mg Admin: 04/10/18 07:12 Dose: 0.2 mg Admin: 04/09/18 08:09 Dose: 0.2 mg Admin: 04/08/18 08:27 Dose: 0.2 mg Admin: 04/07/18 07:24 Dose: 0.2 mg Admin: 04/06/18 08:04 Dose: 0.2 mg Admin: 04/05/18 07:28 Dose: 0.2 mg Admin: 04/04/18 08:25 Dose: 0.2 mg Admin: 04/03/18 08:22 Dose: 0.2 mg Admin: 04/02/18 07:19 Dose: 0.2 mg Admin: 04/01/18 08:23 Dose: 0.2 mg Admin: 03/31/18 07:16 Dose: 0.2 mg Admin: 03/30/18 07:28 Dose: 0.2 mg Admin: 03/29/18 07:57 Dose: 0.2 mg Admin: 03/28/18 07:27 Dose: 0.2 mg Admin: 03/27/18 07:56 Dose: 0.2 mg Admin: 03/26/18 07:53 Dose: 0.2 mg Admin: 03/25/18 07:37 Dose: 0.2 mg Admin: 03/24/18 07:20 Dose: 0.2 mg Admin: 03/23/18 07:23 Dose: 0.2 mg Admin: 03/22/18 07:19 Dose: 0.2 mg Admin: 03/21/18 07:17 Dose: 0.2 mg Admin: 03/20/18 07:20 Dose: 0.2 mg Admin: 03/19/18 08:01 Dose: 0.2 mg Admin: 03/18/18 08:06 Dose: 0.2 mg Admin: 03/17/18 07:36 Dose: 0.2 mg Admin: 03/16/18 08:20 Dose: 0.2 mg Admin: 03/15/18 08:16 Dose: 0.2 mg Admin: 03/14/18 08:13 Dose: 0.2 mg Admin: 03/13/18 07:57 Dose: 0.2 mg Admin: 03/12/18 07:36 Dose: 0.2 mg Admin: 03/11/18 07:56 Dose: 0.2 mg Admin: 03/10/18 08:29 Dose: 0.2 mg Admin: 03/09/18 08:20 Dose: 0.2 mg Admin: 03/08/18 07:57 Dose: 0.2 mg Admin: 03/07/18 07:59 Dose: 0.2 mg Admin: 03/06/18 08:17 Dose: 0.2 mg Admin: 03/05/18 08:00 Dose: 0.2 mg Admin: 03/04/18 08:09 Dose: 0.2 mg Admin: 03/03/18 07:15 Dose: 0.2 mg Admin: 03/02/18 07:58 Dose: 0.2 mg Admin: 03/01/18 07:39 Dose: 0.2 mg Admin: 02/28/18 07:45 Dose: 0.2 mg Admin: 02/27/18 08:13 Dose: 0.2 mg Admin: 02/26/18 08:14 Dose: 0.2 mg Admin: 02/25/18 08:01 Dose: 0.2 mg Admin: 02/24/18 08:16 Dose: 0.2 mg Admin: 02/23/18 07:51 Dose: 0.2 mg Admin: 02/22/18 08:17 Dose: 0.2 mg Admin: 02/21/18 08:08 Dose: 0.2 mg Admin: 02/20/18 08:06 Dose: 0.2 mg Admin: 02/19/18 08:12 Dose: 0.2 mg Admin: 02/18/18 07:41 Dose: 0.2 mg Admin: 02/17/18 09:38 Dose: Not Given Admin: 02/16/18 08:14 Dose: 0.2 mg Admin: 02/15/18 08:10 Dose: 0.2 mg Admin: 02/14/18 07:46 Dose: 0.2 mg Admin: 02/13/18 07:41 Dose: 0.2 mg Admin: 02/12/18 08:31 Dose: 0.2 mg Admin: 02/11/18 07:34 Dose: 0.2 mg Admin: 02/10/18 08:07 Dose: 0.2 mg Admin: 02/09/18 08:47 Dose: 0.2 mg Admin: 02/08/18 08:10 Dose: 0.2 mg Admin: 02/07/18 07:21 Dose: 0.2 mg Admin: 02/06/18 07:41 Dose: 0.2 mg Admin: 02/05/18 08:13 Dose: 0.2 mg Admin: 02/04/18 08:05 Dose: 0.2 mg Admin: 02/03/18 08:12 Dose: 0.2 mg Admin: 02/02/18 08:45 Dose: 0.2 mg Admin: 02/01/18 07:58 Dose: 0.2 mg Admin: 01/31/18 08:21 Dose: 0.2 mg Admin: 01/30/18 08:13 Dose: 0.2 mg Admin: 01/29/18 07:38 Dose: 0.2 mg Admin: 01/28/18 07:36 Dose: 0.2 mg Admin: 01/27/18 07:26 Dose: 0.2 mg Admin: 01/26/18 07:38 Dose: 0.2 mg Admin: 01/25/18 07:42 Dose: 0.2 mg Admin: 01/24/18 08:09 Dose: 0.2 mg Admin: 01/23/18 08:10 Dose: 0.2 mg Admin: 01/22/18 08:21 Dose: 0.2 mg Admin: 01/21/18 07:48 Dose: 0.2 mg Admin: 01/20/18 07:17 Dose: 0.2 mg Admin: 01/19/18 08:20 Dose: 0.2 mg Admin: 01/18/18 07:23 Dose: 0.2 mg Admin: 01/17/18 07:22 Dose: 0.2 mg Admin: 01/16/18 07:40 Dose: 0.2 mg Admin: 01/15/18 07:57 Dose: 0.2 mg Admin: 01/14/18 07:38 Dose: 0.2 mg Admin: 01/13/18 08:16 Dose: 0.2 mg Admin: 01/12/18 08:14 Dose: 0.2 mg Admin: 01/11/18 08:39 Dose: 0.2 mg Admin: 01/10/18 08:24 Dose: 0.2 mg Admin: 01/09/18 08:29 Dose: 0.2 mg Admin: 01/08/18 07:27 Dose: 0.2 mg Admin: 01/07/18 07:30 Dose: 0.2 mg Admin: 01/06/18 07:31 Dose: 0.2 mg Admin: 01/05/18 08:12 Dose: 0.2 mg Admin: 01/04/18 08:16 Dose: 0.2 mg Admin: 01/03/18 08:10 Dose: 0.2 mg Admin: 01/02/18 08:04 Dose: 0.2 mg Admin: 01/01/18 07:27 Dose: 0.2 mg Admin: 12/31/17 07:20 Dose: 0.2 mg Admin: 12/30/17 08:26 Dose: 0.2 mg Admin: 12/29/17 08:11 Dose: 0.2 mg Admin: 12/28/17 07:25 Dose: 0.2 mg Admin: 12/27/17 07:10 Dose: 0.2 mg Admin: 12/26/17 07:37 Dose: 0.2 mg Admin: 12/25/17 08:05 Dose: 0.2 mg Admin: 12/24/17 08:16 Dose: 0.2 mg Admin: 12/23/17 07:35 Dose: 0.2 mg Admin: 12/22/17 08:13 Dose: 0.2 mg Admin: 12/21/17 08:05 Dose: 0.2 mg Admin: 12/20/17 08:15 Dose: 0.2 mg Admin: 12/19/17 07:52 Dose: 0.2 mg Admin: 12/18/17 08:25 Dose: 0.2 mg Admin: 12/17/17 07:34 Dose: 0.2 mg Admin: 12/16/17 07:23 Dose: 0.2 mg Admin: 12/15/17 07:26 Dose: 0.2 mg Admin: 12/14/17 08:05 Dose: 0.2 mg Admin: 12/13/17 08:18 Dose: 0.2 mg Admin: 12/12/17 08:15 Dose: 0.2 mg Admin: 12/11/17 07:51 Dose: 0.2 mg Admin: 12/10/17 07:58 Dose: 0.2 mg Admin: 12/09/17 08:12 Dose: 0.2 mg Admin: 12/08/17 07:21 Dose: 0.2 mg Admin: 12/07/17 07:29 Dose: 0.2 mg Admin: 12/06/17 07:31 Dose: 0.2 mg Admin: 12/05/17 08:13 Dose: 0.2 mg Admin: 12/04/17 07:57 Dose: 0.2 mg Admin: 12/03/17 08:05 Dose: 0.2 mg Admin: 12/02/17 08:07 Dose: 0.2 mg Admin: 12/01/17 08:03 Dose: 0.2 mg Admin: 11/30/17 08:03 Dose: 0.2 mg Admin: 11/29/17 08:07 Dose: 0.2 mg Admin: 11/28/17 08:24 Dose: 0.2 mg Admin: 11/27/17 08:17 Dose: 0.2 mg Admin: 11/26/17 08:15 Dose: 0.2 mg Furosemide (Lasix) 20 mg PO DAILY MIESHA Last Admin: 04/30/18 07:23 Dose: 20 mg Admin: 04/29/18 07:15 Dose: 20 mg Admin: 04/28/18 07:43 Dose: 20 mg Admin: 04/27/18 07:55 Dose: 20 mg Admin: 04/26/18 08:06 Dose: 20 mg Admin: 04/25/18 07:52 Dose: 20 mg Admin: 04/24/18 07:55 Dose: 20 mg Admin: 04/23/18 07:17 Dose: 20 mg Admin: 04/22/18 07:27 Dose: 20 mg Admin: 04/21/18 07:11 Dose: 20 mg Admin: 04/20/18 08:08 Dose: 20 mg Admin: 04/19/18 07:42 Dose: 20 mg Admin: 04/18/18 07:49 Dose: 20 mg Admin: 04/17/18 07:44 Dose: 20 mg Admin: 04/16/18 07:53 Dose: 20 mg Admin: 04/15/18 07:25 Dose: 20 mg Admin: 04/14/18 07:21 Dose: 20 mg Admin: 04/13/18 07:52 Dose: 20 mg Admin: 04/12/18 07:13 Dose: 20 mg Admin: 04/11/18 07:30 Dose: 20 mg Admin: 04/10/18 07:12 Dose: 20 mg Admin: 04/09/18 08:09 Dose: 20 mg Admin: 04/08/18 08:28 Dose: 20 mg Admin: 04/07/18 07:24 Dose: 20 mg Admin: 04/06/18 08:04 Dose: 20 mg Admin: 04/05/18 07:28 Dose: 20 mg Admin: 04/04/18 08:25 Dose: 20 mg Admin: 04/03/18 08:23 Dose: 20 mg Admin: 04/02/18 07:19 Dose: 20 mg Admin: 04/01/18 08:24 Dose: 20 mg Admin: 03/31/18 07:16 Dose: 20 mg Admin: 03/30/18 07:28 Dose: 20 mg Admin: 03/29/18 07:57 Dose: 20 mg Admin: 03/28/18 07:28 Dose: 20 mg Admin: 03/27/18 07:57 Dose: 20 mg Admin: 03/26/18 07:54 Dose: 20 mg Admin: 03/25/18 07:38 Dose: 20 mg Admin: 03/24/18 07:20 Dose: 20 mg Admin: 03/23/18 07:23 Dose: 20 mg Admin: 03/22/18 07:19 Dose: 20 mg Admin: 03/21/18 07:17 Dose: 20 mg Admin: 03/20/18 07:20 Dose: 20 mg Admin: 03/19/18 08:01 Dose: 20 mg Admin: 03/18/18 08:08 Dose: 20 mg Admin: 03/17/18 07:36 Dose: 20 mg Admin: 03/16/18 08:20 Dose: 20 mg Admin: 03/15/18 08:16 Dose: 20 mg Admin: 03/14/18 08:13 Dose: 20 mg Admin: 03/13/18 07:57 Dose: 20 mg Admin: 03/12/18 07:36 Dose: 20 mg Admin: 03/11/18 07:56 Dose: 20 mg Admin: 03/10/18 08:29 Dose: 20 mg Admin: 03/09/18 08:20 Dose: 20 mg Admin: 03/08/18 07:57 Dose: 20 mg Admin: 03/07/18 07:59 Dose: 20 mg Admin: 03/06/18 08:17 Dose: 20 mg Admin: 03/05/18 08:00 Dose: 20 mg Admin: 03/04/18 08:09 Dose: 20 mg Admin: 03/03/18 07:15 Dose: 20 mg Admin: 03/02/18 07:58 Dose: 20 mg Admin: 03/01/18 07:39 Dose: 20 mg Admin: 02/28/18 07:45 Dose: 20 mg Admin: 02/27/18 08:13 Dose: 20 mg Admin: 02/26/18 08:15 Dose: 20 mg Admin: 02/25/18 08:01 Dose: 20 mg Admin: 02/24/18 08:16 Dose: 20 mg Admin: 02/23/18 07:51 Dose: 20 mg Admin: 02/22/18 08:18 Dose: 20 mg Admin: 02/21/18 08:08 Dose: 20 mg Admin: 02/20/18 08:06 Dose: 20 mg Admin: 02/19/18 08:12 Dose: 20 mg Admin: 02/18/18 07:41 Dose: 20 mg Admin: 02/17/18 09:38 Dose: Not Given Admin: 02/16/18 08:14 Dose: 20 mg Admin: 02/15/18 08:10 Dose: 20 mg Admin: 02/14/18 07:46 Dose: 20 mg Admin: 02/13/18 07:41 Dose: 20 mg Admin: 02/12/18 08:31 Dose: 20 mg Admin: 02/11/18 07:35 Dose: 20 mg Admin: 02/10/18 08:07 Dose: 20 mg Admin: 02/09/18 08:47 Dose: 20 mg Admin: 02/08/18 08:10 Dose: 20 mg Admin: 02/07/18 07:21 Dose: 20 mg Admin: 02/06/18 07:41 Dose: 20 mg Admin: 02/05/18 08:13 Dose: 20 mg Admin: 02/04/18 08:05 Dose: 20 mg Admin: 02/03/18 08:13 Dose: 20 mg Admin: 02/02/18 08:45 Dose: 20 mg Admin: 02/01/18 07:58 Dose: 20 mg Admin: 01/31/18 08:21 Dose: 20 mg Admin: 01/30/18 08:13 Dose: 20 mg Admin: 01/29/18 07:38 Dose: 20 mg Admin: 01/28/18 07:36 Dose: 20 mg Admin: 01/27/18 07:26 Dose: 20 mg Admin: 01/26/18 07:39 Dose: 20 mg Admin: 01/25/18 07:43 Dose: 20 mg Admin: 01/24/18 08:09 Dose: 20 mg Admin: 01/23/18 08:10 Dose: 20 mg Admin: 01/22/18 08:21 Dose: 20 mg Admin: 01/21/18 07:48 Dose: 20 mg Admin: 01/20/18 07:17 Dose: 20 mg Admin: 01/19/18 08:21 Dose: 20 mg Admin: 01/18/18 07:23 Dose: 20 mg Admin: 01/17/18 07:22 Dose: 20 mg Admin: 01/16/18 07:41 Dose: 20 mg Admin: 01/15/18 07:57 Dose: 20 mg Admin: 01/14/18 07:38 Dose: 20 mg Admin: 01/13/18 08:15 Dose: 20 mg Admin: 01/12/18 08:15 Dose: 20 mg Admin: 01/11/18 08:40 Dose: 20 mg Admin: 01/10/18 08:24 Dose: 20 mg Admin: 01/09/18 08:30 Dose: 20 mg Admin: 01/08/18 07:27 Dose: 20 mg Admin: 01/07/18 07:30 Dose: 20 mg Admin: 01/06/18 07:31 Dose: 20 mg Admin: 01/05/18 08:12 Dose: 20 mg Admin: 01/04/18 08:16 Dose: 20 mg Admin: 01/03/18 08:10 Dose: 20 mg Admin: 01/02/18 08:05 Dose: 20 mg Admin: 01/01/18 07:27 Dose: 20 mg Admin: 12/31/17 07:20 Dose: 20 mg Admin: 12/30/17 08:25 Dose: 20 mg Admin: 12/29/17 08:11 Dose: 20 mg Admin: 12/28/17 07:25 Dose: 20 mg Admin: 12/27/17 07:10 Dose: 20 mg Admin: 12/26/17 07:37 Dose: 20 mg Admin: 12/25/17 08:05 Dose: 20 mg Admin: 12/24/17 08:16 Dose: 20 mg Admin: 12/23/17 07:35 Dose: 20 mg Admin: 12/22/17 08:13 Dose: 20 mg Admin: 12/21/17 08:05 Dose: 20 mg Admin: 12/20/17 08:15 Dose: 20 mg Admin: 12/19/17 07:53 Dose: 20 mg Admin: 12/18/17 08:26 Dose: 20 mg Admin: 12/17/17 07:34 Dose: 20 mg Admin: 12/16/17 07:24 Dose: 20 mg Admin: 12/15/17 07:27 Dose: 20 mg Admin: 12/14/17 08:05 Dose: 20 mg Admin: 12/13/17 08:19 Dose: 20 mg Admin: 12/12/17 08:15 Dose: 20 mg Admin: 12/11/17 08:15 Dose: 20 mg Ibuprofen (Motrin) 600 mg PO BID MIESHA Last Admin: 04/30/18 07:23 Dose: 600 mg Admin: 04/29/18 17:17 Dose: 600 mg Admin: 04/29/18 07:15 Dose: 600 mg Admin: 04/28/18 17:30 Dose: 600 mg Admin: 04/28/18 07:43 Dose: 600 mg Admin: 04/27/18 17:30 Dose: 600 mg Admin: 04/27/18 07:55 Dose: 600 mg Admin: 04/26/18 17:29 Dose: 600 mg Admin: 04/26/18 08:06 Dose: 600 mg Admin: 04/25/18 17:38 Dose: 600 mg Admin: 04/25/18 07:53 Dose: 600 mg Admin: 04/24/18 17:35 Dose: 600 mg Admin: 04/24/18 07:55 Dose: 600 mg Admin: 04/23/18 17:13 Dose: 600 mg Admin: 04/23/18 07:17 Dose: 600 mg Admin: 04/22/18 17:24 Dose: 600 mg Admin: 04/22/18 07:27 Dose: 600 mg Admin: 04/21/18 17:13 Dose: 600 mg Admin: 04/21/18 07:11 Dose: 600 mg Admin: 04/20/18 17:21 Dose: 600 mg Admin: 04/20/18 08:09 Dose: 600 mg Admin: 04/19/18 17:31 Dose: 600 mg Admin: 04/19/18 07:42 Dose: 600 mg Admin: 04/18/18 17:38 Dose: 600 mg Admin: 04/18/18 07:49 Dose: 600 mg Admin: 04/17/18 17:17 Dose: 600 mg Admin: 04/17/18 07:44 Dose: 600 mg Admin: 04/16/18 17:38 Dose: 600 mg Admin: 04/16/18 07:53 Dose: 600 mg Admin: 04/15/18 17:09 Dose: 600 mg Admin: 04/15/18 07:25 Dose: 600 mg Admin: 04/14/18 18:05 Dose: 600 mg Admin: 04/14/18 07:21 Dose: 600 mg Admin: 04/13/18 18:08 Dose: 600 mg Admin: 04/13/18 07:52 Dose: 600 mg Admin: 04/12/18 17:17 Dose: 600 mg Admin: 04/12/18 07:13 Dose: 600 mg Admin: 04/11/18 17:07 Dose: 600 mg Admin: 04/11/18 07:30 Dose: 600 mg Admin: 04/10/18 17:46 Dose: 600 mg Admin: 04/10/18 07:12 Dose: 600 mg Admin: 04/09/18 18:00 Dose: 600 mg Admin: 04/09/18 08:09 Dose: 600 mg Admin: 04/08/18 17:29 Dose: 600 mg Admin: 04/08/18 08:28 Dose: 600 mg Admin: 04/07/18 17:11 Dose: 600 mg Admin: 04/07/18 07:24 Dose: 600 mg Admin: 04/06/18 17:51 Dose: 600 mg Admin: 04/06/18 08:03 Dose: 600 mg Admin: 04/05/18 17:21 Dose: 600 mg Admin: 04/05/18 07:28 Dose: 600 mg Admin: 04/04/18 18:10 Dose: 600 mg Admin: 04/04/18 08:25 Dose: 600 mg Admin: 04/03/18 17:35 Dose: 600 mg Admin: 04/03/18 08:23 Dose: 600 mg Admin: 04/02/18 17:27 Dose: 600 mg Admin: 04/02/18 07:19 Dose: 600 mg Admin: 04/01/18 18:08 Dose: 600 mg Admin: 04/01/18 08:22 Dose: 600 mg Admin: 03/31/18 17:10 Dose: 600 mg Admin: 03/31/18 07:16 Dose: 600 mg Admin: 03/31/18 03:22 Dose: Not Given Admin: 03/30/18 07:28 Dose: 600 mg Admin: 03/29/18 17:21 Dose: 600 mg Admin: 03/29/18 07:57 Dose: 600 mg Admin: 03/28/18 17:33 Dose: 600 mg Admin: 03/28/18 07:28 Dose: 600 mg Admin: 03/27/18 17:57 Dose: 600 mg Admin: 03/27/18 07:57 Dose: 600 mg Admin: 03/26/18 17:57 Dose: 600 mg Admin: 03/26/18 07:54 Dose: 600 mg Admin: 03/25/18 17:22 Dose: 600 mg Admin: 03/25/18 07:40 Dose: 600 mg Admin: 03/24/18 17:13 Dose: 600 mg Admin: 03/24/18 07:20 Dose: 600 mg Admin: 03/23/18 17:12 Dose: 600 mg Admin: 03/23/18 07:23 Dose: 600 mg Admin: 03/22/18 17:12 Dose: 600 mg Admin: 03/22/18 07:19 Dose: 600 mg Admin: 03/21/18 17:25 Dose: 600 mg Admin: 03/21/18 07:18 Dose: 600 mg Admin: 03/20/18 17:09 Dose: 600 mg Admin: 03/20/18 07:20 Dose: 600 mg Admin: 03/19/18 18:05 Dose: 600 mg Admin: 03/19/18 08:02 Dose: 600 mg Admin: 03/18/18 17:37 Dose: 600 mg Admin: 03/18/18 08:08 Dose: 600 mg Admin: 03/17/18 17:13 Dose: 600 mg Admin: 03/17/18 07:36 Dose: 600 mg Admin: 03/16/18 17:38 Dose: 600 mg Admin: 03/16/18 08:20 Dose: 600 mg Admin: 03/15/18 17:45 Dose: 600 mg Admin: 03/15/18 08:17 Dose: 600 mg Admin: 03/14/18 17:58 Dose: 600 mg Admin: 03/14/18 08:14 Dose: 600 mg Admin: 03/13/18 18:44 Dose: 600 mg Admin: 03/13/18 07:57 Dose: 600 mg Admin: 03/12/18 17:21 Dose: 600 mg Admin: 03/12/18 07:36 Dose: 600 mg Admin: 03/11/18 17:54 Dose: 600 mg Admin: 03/11/18 07:55 Dose: 600 mg Admin: 03/10/18 17:53 Dose: 600 mg Admin: 03/10/18 08:29 Dose: 600 mg Admin: 03/09/18 17:10 Dose: 600 mg Admin: 03/09/18 08:20 Dose: 600 mg Admin: 03/08/18 18:12 Dose: 600 mg Admin: 03/08/18 07:57 Dose: 600 mg Admin: 03/07/18 18:00 Dose: 600 mg Admin: 03/07/18 07:59 Dose: 600 mg Admin: 03/06/18 17:31 Dose: 600 mg Admin: 03/06/18 08:18 Dose: 600 mg Admin: 03/05/18 18:04 Dose: 600 mg Admin: 03/05/18 08:00 Dose: 600 mg Admin: 03/04/18 17:28 Dose: 600 mg Admin: 03/04/18 08:09 Dose: 600 mg Admin: 03/03/18 17:16 Dose: 600 mg Admin: 03/03/18 07:15 Dose: 600 mg Admin: 03/02/18 17:10 Dose: 600 mg Admin: 03/02/18 07:58 Dose: 600 mg Admin: 03/01/18 17:10 Dose: 600 mg Admin: 03/01/18 07:39 Dose: 600 mg Admin: 02/28/18 17:20 Dose: 600 mg Admin: 02/28/18 07:46 Dose: 600 mg Admin: 02/27/18 17:33 Dose: 600 mg Admin: 02/27/18 08:13 Dose: 600 mg Admin: 02/26/18 17:40 Dose: 600 mg Admin: 02/26/18 08:15 Dose: 600 mg Admin: 02/25/18 17:24 Dose: 600 mg Admin: 02/25/18 08:01 Dose: 600 mg Admin: 02/24/18 17:55 Dose: 600 mg Admin: 02/24/18 08:16 Dose: 600 mg Admin: 02/23/18 17:20 Dose: 600 mg Admin: 02/23/18 07:51 Dose: 600 mg Admin: 02/22/18 17:17 Dose: 600 mg Admin: 02/22/18 08:18 Dose: 600 mg Admin: 02/21/18 17:17 Dose: 600 mg Admin: 02/21/18 08:09 Dose: 600 mg Admin: 02/20/18 17:29 Dose: 600 mg Admin: 02/20/18 08:07 Dose: 600 mg Admin: 02/19/18 17:51 Dose: 600 mg Admin: 02/19/18 08:12 Dose: 600 mg Admin: 02/18/18 17:14 Dose: 600 mg Admin: 02/18/18 07:41 Dose: 600 mg Admin: 02/17/18 17:25 Dose: 600 mg Admin: 02/17/18 09:38 Dose: Not Given Admin: 02/16/18 17:39 Dose: 600 mg Admin: 02/16/18 08:14 Dose: 600 mg Admin: 02/15/18 17:41 Dose: 600 mg Admin: 02/15/18 08:10 Dose: 600 mg Admin: 02/14/18 17:40 Dose: 600 mg Admin: 02/14/18 07:46 Dose: 600 mg Admin: 02/13/18 17:33 Dose: 600 mg Admin: 02/13/18 07:41 Dose: 600 mg Admin: 02/12/18 18:17 Dose: 600 mg Admin: 02/12/18 08:31 Dose: 600 mg Admin: 02/11/18 17:45 Dose: 600 mg Admin: 02/11/18 07:35 Dose: 600 mg Admin: 02/10/18 17:18 Dose: 600 mg Admin: 02/10/18 08:08 Dose: 600 mg Admin: 02/09/18 18:10 Dose: 600 mg Admin: 02/09/18 08:47 Dose: 600 mg Admin: 02/08/18 17:59 Dose: 600 mg Admin: 02/08/18 08:09 Dose: 600 mg Admin: 02/07/18 17:28 Dose: 600 mg Admin: 02/07/18 07:21 Dose: 600 mg Admin: 02/06/18 17:45 Dose: 600 mg Admin: 02/06/18 07:41 Dose: 600 mg Admin: 02/05/18 17:37 Dose: 600 mg Admin: 02/05/18 08:13 Dose: 600 mg Admin: 02/04/18 17:49 Dose: 600 mg Admin: 02/04/18 08:05 Dose: 600 mg Admin: 02/03/18 18:13 Dose: 600 mg Admin: 02/03/18 08:13 Dose: 600 mg Admin: 02/02/18 18:00 Dose: 600 mg Admin: 02/02/18 08:44 Dose: 600 mg Admin: 02/01/18 18:04 Dose: 600 mg Admin: 02/01/18 07:59 Dose: 600 mg Admin: 01/31/18 17:40 Dose: 600 mg Admin: 01/31/18 08:21 Dose: 600 mg Admin: 01/30/18 17:58 Dose: 600 mg Admin: 01/30/18 08:14 Dose: 600 mg Admin: 01/29/18 17:31 Dose: 600 mg Admin: 01/29/18 07:38 Dose: 600 mg Admin: 01/28/18 17:47 Dose: 600 mg Admin: 01/28/18 07:36 Dose: 600 mg Admin: 01/27/18 17:18 Dose: 600 mg Admin: 01/27/18 07:27 Dose: 600 mg Admin: 01/26/18 17:16 Dose: 600 mg Admin: 01/26/18 07:39 Dose: 600 mg Admin: 01/25/18 17:30 Dose: 600 mg Admin: 01/25/18 07:43 Dose: 600 mg Admin: 01/24/18 17:35 Dose: 600 mg Admin: 01/24/18 08:09 Dose: 600 mg Admin: 01/23/18 17:53 Dose: 600 mg Admin: 01/23/18 08:11 Dose: 600 mg Admin: 01/22/18 18:24 Dose: 600 mg Admin: 01/22/18 08:21 Dose: 600 mg Admin: 01/21/18 17:20 Dose: 600 mg Admin: 01/21/18 07:48 Dose: 600 mg Admin: 01/20/18 17:09 Dose: 600 mg Admin: 01/20/18 07:17 Dose: 600 mg Admin: 01/19/18 17:45 Dose: 600 mg Admin: 01/19/18 08:21 Dose: 600 mg Admin: 01/18/18 17:12 Dose: 600 mg Admin: 01/18/18 07:23 Dose: 600 mg Admin: 01/17/18 17:52 Dose: 600 mg Admin: 01/17/18 07:23 Dose: 600 mg Admin: 01/16/18 17:09 Dose: 600 mg Admin: 01/16/18 07:41 Dose: 600 mg Admin: 01/15/18 17:44 Dose: 600 mg Admin: 01/15/18 07:58 Dose: 600 mg Admin: 01/14/18 17:54 Dose: 600 mg Admin: 01/14/18 07:39 Dose: 600 mg Admin: 01/13/18 18:11 Dose: 600 mg Admin: 01/13/18 08:15 Dose: 600 mg Admin: 01/12/18 17:28 Dose: 600 mg Admin: 01/12/18 08:15 Dose: 600 mg Admin: 01/11/18 17:59 Dose: 600 mg Admin: 01/11/18 08:40 Dose: 600 mg Admin: 01/10/18 17:43 Dose: 600 mg Admin: 01/10/18 08:24 Dose: 600 mg Admin: 01/09/18 17:46 Dose: 600 mg Admin: 01/09/18 08:30 Dose: 600 mg Admin: 01/08/18 17:04 Dose: 600 mg Admin: 01/08/18 07:27 Dose: 600 mg Admin: 01/07/18 17:10 Dose: 600 mg Admin: 01/07/18 07:30 Dose: 600 mg Admin: 01/06/18 17:14 Dose: 600 mg Admin: 01/06/18 07:31 Dose: 600 mg Admin: 01/05/18 18:19 Dose: 600 mg Admin: 01/05/18 08:12 Dose: 600 mg Admin: 01/04/18 18:03 Dose: 600 mg Admin: 01/04/18 08:17 Dose: 600 mg Admin: 01/03/18 18:00 Dose: 600 mg Admin: 01/03/18 08:10 Dose: 600 mg Admin: 01/02/18 17:51 Dose: 600 mg Admin: 01/02/18 08:05 Dose: 600 mg Admin: 01/01/18 17:17 Dose: 600 mg Admin: 01/01/18 07:27 Dose: 600 mg Admin: 12/31/17 17:32 Dose: 600 mg Admin: 12/31/17 07:20 Dose: 600 mg Admin: 12/30/17 17:58 Dose: 600 mg Admin: 12/30/17 08:25 Dose: 600 mg Admin: 12/29/17 17:35 Dose: 600 mg Admin: 12/29/17 08:12 Dose: 600 mg Admin: 12/28/17 17:36 Dose: 600 mg Admin: 12/28/17 07:25 Dose: 600 mg Admin: 12/27/17 17:16 Dose: 600 mg Admin: 12/27/17 07:10 Dose: 600 mg Admin: 12/26/17 17:12 Dose: 600 mg Admin: 12/26/17 07:38 Dose: 600 mg Admin: 12/25/17 18:02 Dose: 600 mg Admin: 12/25/17 08:05 Dose: 600 mg Admin: 12/24/17 18:04 Dose: 600 mg Admin: 12/24/17 08:16 Dose: 600 mg Admin: 12/23/17 17:28 Dose: 600 mg Admin: 12/23/17 07:35 Dose: 600 mg Admin: 12/22/17 17:31 Dose: 600 mg Admin: 12/22/17 08:13 Dose: 600 mg Admin: 12/21/17 17:49 Dose: 600 mg Admin: 12/21/17 08:05 Dose: 600 mg Admin: 12/20/17 17:53 Dose: 600 mg Admin: 12/20/17 08:15 Dose: 600 mg Admin: 12/19/17 17:38 Dose: 600 mg Admin: 12/19/17 07:53 Dose: 600 mg Admin: 12/18/17 17:48 Dose: 600 mg Admin: 12/18/17 08:26 Dose: 600 mg Admin: 12/17/17 17:11 Dose: 600 mg Admin: 12/17/17 07:34 Dose: 600 mg Admin: 12/16/17 17:12 Dose: 600 mg Admin: 12/16/17 07:24 Dose: 600 mg Admin: 12/15/17 17:21 Dose: 600 mg Admin: 12/15/17 07:27 Dose: 600 mg Admin: 12/14/17 17:20 Dose: 600 mg Admin: 12/14/17 08:05 Dose: 600 mg Admin: 12/13/17 17:26 Dose: 600 mg Admin: 12/13/17 08:19 Dose: 600 mg Admin: 12/12/17 17:53 Dose: 600 mg Admin: 12/12/17 08:15 Dose: 600 mg Admin: 12/11/17 17:37 Dose: 600 mg Admin: 12/11/17 07:52 Dose: 600 mg Admin: 12/10/17 17:52 Dose: 600 mg Admin: 12/10/17 07:59 Dose: 600 mg Admin: 12/09/17 17:24 Dose: 600 mg Admin: 12/09/17 08:12 Dose: 600 mg Admin: 12/08/17 17:57 Dose: 600 mg Admin: 12/08/17 07:22 Dose: 600 mg Admin: 12/07/17 17:09 Dose: 600 mg Admin: 12/07/17 07:29 Dose: 600 mg Admin: 12/06/17 17:13 Dose: 600 mg Admin: 12/06/17 07:32 Dose: 600 mg Admin: 12/05/17 17:27 Dose: 600 mg Admin: 12/05/17 08:13 Dose: 600 mg Admin: 12/04/17 17:59 Dose: 600 mg Admin: 12/04/17 07:57 Dose: 600 mg Admin: 12/03/17 17:53 Dose: 600 mg Admin: 12/03/17 08:05 Dose: 600 mg Admin: 12/02/17 17:34 Dose: 600 mg Admin: 12/02/17 08:07 Dose: 600 mg Admin: 12/01/17 17:57 Dose: 600 mg Admin: 12/01/17 08:03 Dose: 600 mg Admin: 11/30/17 17:11 Dose: 600 mg Admin: 11/30/17 08:03 Dose: 600 mg Admin: 11/29/17 18:10 Dose: 600 mg Admin: 11/29/17 08:08 Dose: 600 mg Admin: 11/28/17 17:33 Dose: 600 mg Admin: 11/28/17 08:24 Dose: 600 mg Admin: 11/27/17 17:50 Dose: 600 mg Admin: 11/27/17 08:17 Dose: 600 mg Admin: 11/26/17 17:36 Dose: 600 mg Admin: 11/26/17 08:17 Dose: 600 mg Admin: 11/25/17 17:23 Dose: 600 mg Ibuprofen (Motrin) 600 mg PO Q6H PRN PRN Reason: Breakthrough Pain Metoclopramide HCl (Reglan) 10 mg PO BIDAC MIESHA Last Admin: 04/30/18 07:22 Dose: 10 mg Admin: 04/29/18 17:17 Dose: 10 mg Admin: 04/29/18 07:15 Dose: 10 mg Admin: 04/28/18 17:30 Dose: 10 mg Admin: 04/28/18 07:42 Dose: 10 mg Admin: 04/27/18 17:30 Dose: 10 mg Admin: 04/27/18 07:54 Dose: 10 mg Admin: 04/26/18 17:29 Dose: 10 mg Admin: 04/26/18 08:05 Dose: 10 mg Admin: 04/25/18 17:37 Dose: 10 mg Admin: 04/25/18 07:52 Dose: 10 mg Admin: 04/24/18 17:35 Dose: 10 mg Admin: 04/24/18 07:55 Dose: 10 mg Admin: 04/23/18 17:13 Dose: 10 mg Admin: 04/23/18 07:16 Dose: 10 mg Admin: 04/22/18 17:24 Dose: 10 mg Admin: 04/22/18 07:26 Dose: 10 mg Admin: 04/21/18 17:13 Dose: 10 mg Admin: 04/21/18 07:10 Dose: 10 mg Admin: 04/20/18 17:21 Dose: 10 mg Admin: 04/20/18 08:08 Dose: 10 mg Admin: 04/19/18 17:31 Dose: 10 mg Admin: 04/19/18 07:41 Dose: 10 mg Admin: 04/18/18 17:38 Dose: 10 mg Admin: 04/18/18 07:48 Dose: 10 mg Admin: 04/17/18 17:17 Dose: 10 mg Admin: 04/17/18 07:44 Dose: 10 mg Admin: 04/16/18 17:38 Dose: 10 mg Admin: 04/16/18 07:52 Dose: 10 mg Admin: 04/15/18 17:08 Dose: 10 mg Admin: 04/15/18 07:25 Dose: 10 mg Admin: 04/14/18 18:05 Dose: 10 mg Admin: 04/14/18 07:21 Dose: 10 mg Admin: 04/13/18 18:08 Dose: 10 mg Admin: 04/13/18 07:51 Dose: 10 mg Admin: 04/12/18 17:17 Dose: 10 mg Admin: 04/12/18 07:13 Dose: 10 mg Admin: 04/11/18 17:07 Dose: 10 mg Admin: 04/11/18 07:29 Dose: 10 mg Admin: 04/10/18 17:46 Dose: 10 mg Admin: 04/10/18 07:12 Dose: 10 mg Admin: 04/09/18 18:00 Dose: 10 mg Admin: 04/09/18 08:09 Dose: 10 mg Admin: 04/08/18 17:29 Dose: 10 mg Admin: 04/08/18 08:27 Dose: 10 mg Admin: 04/07/18 17:11 Dose: 10 mg Admin: 04/07/18 07:23 Dose: 10 mg Admin: 04/06/18 17:52 Dose: 10 mg Admin: 04/06/18 08:05 Dose: 10 mg Admin: 04/05/18 17:20 Dose: 10 mg Admin: 04/05/18 07:27 Dose: 10 mg Admin: 04/04/18 18:10 Dose: 10 mg Admin: 04/04/18 08:24 Dose: 10 mg Admin: 04/03/18 17:35 Dose: 10 mg Admin: 04/03/18 08:22 Dose: 10 mg Admin: 04/02/18 17:27 Dose: 10 mg Admin: 04/02/18 07:19 Dose: 10 mg Admin: 04/01/18 18:10 Dose: 10 mg Admin: 04/01/18 08:22 Dose: 10 mg Admin: 03/31/18 17:10 Dose: 10 mg Admin: 03/31/18 07:16 Dose: 10 mg Admin: 03/31/18 03:22 Dose: Not Given Admin: 03/30/18 07:27 Dose: 10 mg Admin: 03/29/18 17:21 Dose: 10 mg Admin: 03/29/18 07:56 Dose: 10 mg Admin: 03/28/18 17:33 Dose: 10 mg Admin: 03/28/18 07:27 Dose: 10 mg Admin: 03/27/18 17:57 Dose: 10 mg Admin: 03/27/18 07:55 Dose: 10 mg Admin: 03/26/18 17:57 Dose: 10 mg Admin: 03/26/18 07:54 Dose: 10 mg Admin: 03/25/18 17:22 Dose: 10 mg Admin: 03/25/18 07:37 Dose: 10 mg Admin: 03/24/18 17:12 Dose: 10 mg Admin: 03/24/18 07:20 Dose: 10 mg Admin: 03/23/18 17:12 Dose: 10 mg Admin: 03/23/18 07:22 Dose: 10 mg Admin: 03/22/18 17:12 Dose: 10 mg Admin: 03/22/18 07:18 Dose: 10 mg Admin: 03/21/18 17:25 Dose: 10 mg Admin: 03/21/18 07:17 Dose: 10 mg Admin: 03/20/18 17:09 Dose: 10 mg Admin: 03/20/18 07:20 Dose: 10 mg Admin: 03/19/18 18:05 Dose: 10 mg Admin: 03/19/18 08:01 Dose: 10 mg Admin: 03/18/18 17:37 Dose: 10 mg Admin: 03/18/18 08:06 Dose: 10 mg Admin: 03/17/18 17:13 Dose: 10 mg Admin: 03/17/18 07:35 Dose: 10 mg Admin: 03/16/18 17:38 Dose: 10 mg Admin: 03/16/18 08:19 Dose: 10 mg Admin: 03/15/18 17:45 Dose: 10 mg Admin: 03/15/18 08:15 Dose: 10 mg Admin: 03/14/18 17:58 Dose: 10 mg Admin: 03/14/18 08:12 Dose: 10 mg Admin: 03/13/18 18:44 Dose: 10 mg Admin: 03/13/18 07:57 Dose: 10 mg Admin: 03/12/18 17:21 Dose: 10 mg Admin: 03/12/18 07:35 Dose: 10 mg Admin: 03/11/18 17:54 Dose: 10 mg Admin: 03/11/18 07:56 Dose: 10 mg Admin: 03/10/18 17:54 Dose: 10 mg Admin: 03/10/18 08:30 Dose: 10 mg Admin: 03/09/18 17:10 Dose: 10 mg Admin: 03/09/18 08:19 Dose: 10 mg Admin: 03/08/18 18:11 Dose: 10 mg Admin: 03/08/18 07:56 Dose: 10 mg Admin: 03/07/18 17:58 Dose: 10 mg Admin: 03/07/18 07:58 Dose: 10 mg Admin: 03/06/18 17:30 Dose: 10 mg Admin: 03/06/18 08:17 Dose: 10 mg Admin: 03/05/18 18:04 Dose: 10 mg Admin: 03/05/18 07:59 Dose: 10 mg Admin: 03/04/18 17:27 Dose: 10 mg Admin: 03/04/18 08:09 Dose: 10 mg Admin: 03/03/18 17:16 Dose: 10 mg Admin: 03/03/18 07:14 Dose: 10 mg Admin: 03/02/18 17:09 Dose: 10 mg Admin: 03/02/18 07:57 Dose: 10 mg Admin: 03/01/18 17:09 Dose: 10 mg Admin: 03/01/18 07:38 Dose: 10 mg Admin: 02/28/18 17:19 Dose: 10 mg Admin: 02/28/18 07:45 Dose: 10 mg Admin: 02/27/18 17:33 Dose: 10 mg Admin: 02/27/18 08:12 Dose: 10 mg Admin: 02/26/18 17:40 Dose: 10 mg Admin: 02/26/18 08:14 Dose: 10 mg Admin: 02/25/18 17:23 Dose: 10 mg Admin: 02/25/18 08:00 Dose: 10 mg Admin: 02/24/18 17:53 Dose: 10 mg Admin: 02/24/18 08:15 Dose: 10 mg Admin: 02/23/18 17:18 Dose: 10 mg Admin: 02/23/18 07:50 Dose: 10 mg Admin: 02/22/18 17:16 Dose: 10 mg Admin: 02/22/18 08:17 Dose: 10 mg Admin: 02/21/18 17:16 Dose: 10 mg Admin: 02/21/18 08:07 Dose: 10 mg Admin: 02/20/18 17:28 Dose: 10 mg Admin: 02/20/18 08:05 Dose: 10 mg Admin: 02/19/18 17:49 Dose: 10 mg Admin: 02/19/18 08:09 Dose: 10 mg Admin: 02/18/18 17:13 Dose: 10 mg Admin: 02/18/18 07:40 Dose: 10 mg Admin: 02/17/18 17:25 Dose: 10 mg Admin: 02/17/18 09:37 Dose: Not Given Admin: 02/16/18 17:38 Dose: 10 mg Admin: 02/16/18 08:14 Dose: 10 mg Admin: 02/15/18 17:41 Dose: 10 mg Admin: 02/15/18 08:10 Dose: 10 mg Admin: 02/14/18 17:40 Dose: 10 mg Admin: 02/14/18 07:45 Dose: 10 mg Admin: 02/13/18 17:33 Dose: 10 mg Admin: 02/13/18 07:40 Dose: 10 mg Admin: 02/12/18 18:17 Dose: 10 mg Admin: 02/12/18 08:31 Dose: 10 mg Admin: 02/11/18 17:44 Dose: 10 mg Admin: 02/11/18 07:34 Dose: 10 mg Admin: 02/10/18 17:18 Dose: 10 mg Admin: 02/10/18 08:07 Dose: 10 mg Admin: 02/09/18 18:09 Dose: 10 mg Admin: 02/09/18 08:46 Dose: 10 mg Admin: 02/08/18 18:00 Dose: 10 mg Admin: 02/08/18 08:08 Dose: 10 mg Admin: 02/07/18 17:28 Dose: 10 mg Admin: 02/07/18 07:20 Dose: 10 mg Admin: 02/06/18 17:45 Dose: 10 mg Admin: 02/06/18 07:40 Dose: 10 mg Admin: 02/05/18 17:37 Dose: 10 mg Admin: 02/05/18 08:12 Dose: 10 mg Admin: 02/04/18 17:48 Dose: 10 mg Admin: 02/04/18 08:04 Dose: 10 mg Admin: 02/03/18 18:13 Dose: 10 mg Admin: 02/03/18 08:12 Dose: 10 mg Admin: 02/02/18 17:59 Dose: 10 mg Admin: 02/02/18 08:46 Dose: 10 mg Admin: 02/01/18 18:03 Dose: 10 mg Admin: 02/01/18 07:57 Dose: 10 mg Admin: 01/31/18 17:40 Dose: 10 mg Admin: 01/31/18 08:20 Dose: 10 mg Admin: 01/30/18 17:57 Dose: 10 mg Admin: 01/30/18 08:12 Dose: 10 mg Admin: 01/29/18 17:30 Dose: 10 mg Admin: 01/29/18 07:37 Dose: 10 mg Admin: 01/28/18 17:47 Dose: 10 mg Admin: 01/28/18 07:35 Dose: 10 mg Admin: 01/27/18 17:17 Dose: 10 mg Admin: 01/27/18 07:26 Dose: 10 mg Admin: 01/26/18 17:15 Dose: 10 mg Admin: 01/26/18 07:38 Dose: 10 mg Admin: 01/25/18 17:30 Dose: 10 mg Admin: 01/25/18 07:42 Dose: 10 mg Admin: 01/24/18 17:35 Dose: 10 mg Admin: 01/24/18 08:08 Dose: 10 mg Admin: 01/23/18 17:53 Dose: 10 mg Admin: 01/23/18 08:10 Dose: 10 mg Admin: 01/22/18 18:23 Dose: 10 mg Admin: 01/22/18 08:20 Dose: 10 mg Admin: 01/21/18 17:20 Dose: 10 mg Admin: 01/21/18 07:47 Dose: 10 mg Admin: 01/20/18 17:09 Dose: 10 mg Admin: 01/20/18 07:17 Dose: 10 mg Admin: 01/19/18 17:44 Dose: 10 mg Admin: 01/19/18 08:19 Dose: 10 mg Admin: 01/18/18 17:12 Dose: 10 mg Admin: 01/18/18 07:22 Dose: 10 mg Admin: 01/17/18 17:52 Dose: 10 mg Admin: 01/17/18 07:21 Dose: 10 mg Admin: 01/16/18 17:09 Dose: 10 mg Admin: 01/16/18 07:39 Dose: 10 mg Admin: 01/15/18 17:44 Dose: 10 mg Admin: 01/15/18 07:57 Dose: 10 mg Admin: 01/14/18 17:54 Dose: 10 mg Admin: 01/14/18 07:38 Dose: 10 mg Admin: 01/13/18 18:10 Dose: 10 mg Admin: 01/13/18 08:16 Dose: 10 mg Admin: 01/12/18 17:28 Dose: 10 mg Admin: 01/12/18 08:14 Dose: 10 mg Admin: 01/11/18 17:59 Dose: 10 mg Admin: 01/11/18 08:39 Dose: 10 mg Admin: 01/10/18 17:43 Dose: 10 mg Admin: 01/10/18 08:23 Dose: 10 mg Admin: 01/09/18 17:46 Dose: 10 mg Admin: 01/09/18 08:29 Dose: 10 mg Admin: 01/08/18 17:04 Dose: 10 mg Admin: 01/08/18 07:26 Dose: 10 mg Admin: 01/07/18 17:10 Dose: 10 mg Admin: 01/07/18 07:29 Dose: 10 mg Admin: 01/06/18 17:13 Dose: 10 mg Admin: 01/06/18 07:31 Dose: 10 mg Admin: 01/05/18 18:19 Dose: 10 mg Admin: 01/05/18 08:11 Dose: 10 mg Admin: 01/04/18 18:03 Dose: 10 mg Admin: 01/04/18 08:16 Dose: 10 mg Admin: 01/03/18 17:59 Dose: 10 mg Admin: 01/03/18 08:09 Dose: 10 mg Admin: 01/02/18 17:50 Dose: 10 mg Admin: 01/02/18 08:04 Dose: 10 mg Admin: 01/01/18 17:17 Dose: 10 mg Admin: 01/01/18 07:26 Dose: 10 mg Admin: 12/31/17 17:31 Dose: 10 mg Admin: 12/31/17 07:19 Dose: 10 mg Admin: 12/30/17 17:57 Dose: 10 mg Admin: 12/30/17 08:26 Dose: 10 mg Admin: 12/29/17 17:34 Dose: 10 mg Admin: 12/29/17 08:11 Dose: 10 mg Admin: 12/28/17 17:36 Dose: 10 mg Admin: 12/28/17 07:25 Dose: 10 mg Admin: 12/27/17 17:16 Dose: 10 mg Admin: 12/27/17 07:10 Dose: 10 mg Admin: 12/26/17 17:12 Dose: 10 mg Admin: 12/26/17 07:37 Dose: 10 mg Admin: 12/25/17 18:01 Dose: 10 mg Admin: 12/25/17 08:04 Dose: 10 mg Admin: 12/24/17 18:03 Dose: 10 mg Admin: 12/24/17 08:16 Dose: 10 mg Admin: 12/23/17 17:28 Dose: 10 mg Admin: 12/23/17 07:35 Dose: 10 mg Admin: 12/22/17 17:31 Dose: 10 mg Admin: 12/22/17 08:12 Dose: 10 mg Admin: 12/21/17 17:48 Dose: 10 mg Admin: 12/21/17 08:04 Dose: 10 mg Admin: 12/20/17 17:52 Dose: 10 mg Admin: 12/20/17 08:14 Dose: 10 mg Admin: 12/19/17 17:38 Dose: 10 mg Admin: 12/19/17 07:52 Dose: 10 mg Admin: 12/18/17 17:47 Dose: 10 mg Admin: 12/18/17 08:24 Dose: 10 mg Admin: 12/17/17 17:11 Dose: 10 mg Admin: 12/17/17 07:33 Dose: 10 mg Admin: 12/16/17 17:12 Dose: 10 mg Admin: 12/16/17 07:23 Dose: 10 mg Admin: 12/15/17 17:20 Dose: 10 mg Admin: 12/15/17 07:26 Dose: 10 mg Admin: 12/14/17 17:20 Dose: 10 mg Admin: 12/14/17 08:04 Dose: 10 mg Admin: 12/13/17 17:26 Dose: 10 mg Admin: 12/13/17 08:18 Dose: 10 mg Admin: 12/12/17 17:53 Dose: 10 mg Admin: 12/12/17 08:14 Dose: 10 mg Admin: 12/11/17 17:37 Dose: 10 mg Admin: 12/11/17 07:50 Dose: 10 mg Admin: 12/10/17 17:52 Dose: 10 mg Admin: 12/10/17 07:57 Dose: 10 mg Admin: 12/09/17 17:24 Dose: 10 mg Admin: 12/09/17 08:10 Dose: 10 mg Admin: 12/08/17 17:57 Dose: 10 mg Admin: 12/08/17 07:21 Dose: 10 mg Admin: 12/07/17 17:09 Dose: 10 mg Admin: 12/07/17 07:29 Dose: 10 mg Admin: 12/06/17 17:13 Dose: 10 mg Admin: 12/06/17 07:31 Dose: 10 mg Admin: 12/05/17 17:26 Dose: 10 mg Admin: 12/05/17 08:11 Dose: 10 mg Admin: 12/04/17 17:59 Dose: 10 mg Admin: 12/04/17 07:54 Dose: 10 mg Admin: 12/03/17 17:53 Dose: 10 mg Admin: 12/03/17 08:04 Dose: 10 mg Admin: 12/02/17 17:34 Dose: 10 mg Admin: 12/02/17 08:06 Dose: 10 mg Admin: 12/01/17 17:56 Dose: 10 mg Admin: 12/01/17 08:02 Dose: 10 mg Admin: 11/30/17 16:53 Dose: 10 mg Admin: 11/30/17 08:02 Dose: 10 mg Admin: 11/29/17 18:10 Dose: 10 mg Admin: 11/29/17 08:04 Dose: 10 mg Admin: 11/28/17 17:33 Dose: 10 mg Admin: 11/28/17 08:23 Dose: 10 mg Admin: 11/27/17 17:50 Dose: 10 mg Admin: 11/27/17 08:15 Dose: 10 mg Admin: 11/26/17 17:35 Dose: 10 mg Admin: 11/26/17 08:14 Dose: 10 mg Admin: 11/25/17 17:22 Dose: 10 mg Niacin (Niacin) 500 mg PO BID MIESHA Last Admin: 04/30/18 07:24 Dose: 500 mg Admin: 04/29/18 17:17 Dose: 500 mg Admin: 04/29/18 07:17 Dose: 500 mg Admin: 04/28/18 17:30 Dose: 500 mg Admin: 04/28/18 07:44 Dose: 500 mg Admin: 04/27/18 17:31 Dose: 500 mg Admin: 04/27/18 07:56 Dose: 500 mg Admin: 04/26/18 17:33 Dose: 500 mg Admin: 04/26/18 08:07 Dose: 500 mg Admin: 04/25/18 17:38 Dose: 500 mg Admin: 04/25/18 07:53 Dose: 500 mg Admin: 04/24/18 17:35 Dose: 500 mg Admin: 04/24/18 07:56 Dose: 500 mg Admin: 04/23/18 17:13 Dose: 500 mg Admin: 04/23/18 07:18 Dose: 500 mg Admin: 04/22/18 17:25 Dose: 500 mg Admin: 04/22/18 07:28 Dose: 500 mg Admin: 04/21/18 17:14 Dose: 500 mg Admin: 04/21/18 07:11 Dose: 500 mg Admin: 04/20/18 17:21 Dose: 500 mg Admin: 04/20/18 08:09 Dose: 500 mg Admin: 04/19/18 17:31 Dose: 500 mg Admin: 04/19/18 07:42 Dose: 500 mg Admin: 04/18/18 17:39 Dose: 500 mg Admin: 04/18/18 07:49 Dose: 500 mg Admin: 04/17/18 17:17 Dose: 500 mg Admin: 04/17/18 07:45 Dose: 500 mg Admin: 04/16/18 17:39 Dose: 500 mg Admin: 04/16/18 07:53 Dose: 500 mg Admin: 04/15/18 17:11 Dose: 500 mg Admin: 04/15/18 07:26 Dose: 500 mg Admin: 04/14/18 18:04 Dose: 500 mg Admin: 04/14/18 07:22 Dose: 500 mg Admin: 04/13/18 18:08 Dose: 500 mg Admin: 04/13/18 07:53 Dose: 500 mg Admin: 04/12/18 17:17 Dose: 500 mg Admin: 04/12/18 07:14 Dose: 500 mg Admin: 04/11/18 17:08 Dose: 500 mg Admin: 04/11/18 07:30 Dose: 500 mg Admin: 04/10/18 17:47 Dose: 500 mg Admin: 04/10/18 07:13 Dose: 500 mg Admin: 04/09/18 18:01 Dose: 500 mg Admin: 04/09/18 08:10 Dose: 500 mg Admin: 04/08/18 17:29 Dose: 500 mg Admin: 04/08/18 08:30 Dose: 500 mg Admin: 04/07/18 17:11 Dose: 500 mg Admin: 04/07/18 07:24 Dose: 500 mg Admin: 04/06/18 17:52 Dose: 500 mg Admin: 04/06/18 08:06 Dose: 500 mg Admin: 04/05/18 17:22 Dose: 500 mg Admin: 04/05/18 07:29 Dose: 500 mg Admin: 04/04/18 18:10 Dose: 500 mg Admin: 04/04/18 08:26 Dose: 500 mg Admin: 04/03/18 17:36 Dose: 500 mg Admin: 04/03/18 08:24 Dose: 500 mg Admin: 04/02/18 17:27 Dose: 500 mg Admin: 04/02/18 07:20 Dose: 500 mg Admin: 04/01/18 18:11 Dose: 500 mg Admin: 04/01/18 08:28 Dose: 500 mg Admin: 03/31/18 17:10 Dose: 500 mg Admin: 03/31/18 07:18 Dose: 500 mg Admin: 03/31/18 03:22 Dose: Not Given Admin: 03/30/18 07:28 Dose: 500 mg Admin: 03/29/18 17:22 Dose: 500 mg Admin: 03/29/18 07:58 Dose: 500 mg Admin: 03/28/18 17:33 Dose: 500 mg Admin: 03/28/18 07:28 Dose: 500 mg Admin: 03/27/18 17:58 Dose: 500 mg Admin: 03/27/18 07:58 Dose: 500 mg Admin: 03/26/18 17:58 Dose: 500 mg Admin: 03/26/18 07:55 Dose: 500 mg Admin: 03/25/18 17:22 Dose: 500 mg Admin: 03/25/18 07:38 Dose: 500 mg Admin: 03/24/18 17:13 Dose: 500 mg Admin: 03/24/18 07:21 Dose: 500 mg Admin: 03/23/18 17:12 Dose: 500 mg Admin: 03/23/18 07:23 Dose: 500 mg Admin: 03/22/18 17:13 Dose: 500 mg Admin: 03/22/18 07:20 Dose: 500 mg Admin: 03/21/18 17:25 Dose: 500 mg Admin: 03/21/18 07:18 Dose: 500 mg Admin: 03/20/18 17:09 Dose: 500 mg Admin: 03/20/18 07:21 Dose: 500 mg Admin: 03/19/18 18:05 Dose: 500 mg Admin: 03/19/18 08:02 Dose: 500 mg Admin: 03/18/18 17:37 Dose: 500 mg Admin: 03/18/18 08:08 Dose: 500 mg Admin: 03/17/18 17:13 Dose: 500 mg Admin: 03/17/18 07:37 Dose: 500 mg Admin: 03/16/18 17:38 Dose: 500 mg Admin: 03/16/18 08:21 Dose: 500 mg Admin: 03/15/18 17:46 Dose: 500 mg Admin: 03/15/18 08:18 Dose: 500 mg Admin: 03/14/18 17:59 Dose: 500 mg Admin: 03/14/18 08:15 Dose: 500 mg Admin: 03/13/18 18:44 Dose: 500 mg Admin: 03/13/18 07:57 Dose: 500 mg Admin: 03/12/18 17:21 Dose: 500 mg Admin: 03/12/18 07:36 Dose: 500 mg Admin: 03/11/18 17:55 Dose: 500 mg Admin: 03/11/18 07:58 Dose: 500 mg Admin: 03/10/18 17:54 Dose: 500 mg Admin: 03/10/18 08:30 Dose: 500 mg Admin: 03/09/18 17:10 Dose: 500 mg Admin: 03/09/18 08:20 Dose: 500 mg Admin: 03/08/18 18:13 Dose: 500 mg Admin: 03/08/18 07:58 Dose: 500 mg Admin: 03/07/18 18:01 Dose: 500 mg Admin: 03/07/18 07:59 Dose: 500 mg Admin: 03/06/18 17:31 Dose: 500 mg Admin: 03/06/18 08:18 Dose: 500 mg Admin: 03/05/18 18:11 Dose: 500 mg Admin: 03/05/18 08:01 Dose: 500 mg Admin: 03/04/18 17:29 Dose: 500 mg Admin: 03/04/18 08:11 Dose: 500 mg Admin: 03/03/18 17:17 Dose: 500 mg Admin: 03/03/18 07:15 Dose: 500 mg Admin: 03/02/18 17:11 Dose: 500 mg Admin: 03/02/18 07:58 Dose: 500 mg Admin: 03/01/18 17:10 Dose: 500 mg Admin: 03/01/18 07:39 Dose: 500 mg Admin: 02/28/18 17:20 Dose: 500 mg Admin: 02/28/18 07:46 Dose: 500 mg Admin: 02/27/18 17:34 Dose: 500 mg Admin: 02/27/18 08:13 Dose: 500 mg Admin: 02/26/18 17:41 Dose: 500 mg Admin: 02/26/18 08:15 Dose: 500 mg Admin: 02/25/18 17:24 Dose: 500 mg Admin: 02/25/18 08:04 Dose: 500 mg Admin: 02/24/18 17:55 Dose: 500 mg Admin: 02/24/18 08:19 Dose: 500 mg Admin: 02/23/18 17:20 Dose: 500 mg Admin: 02/23/18 07:52 Dose: 500 mg Admin: 02/22/18 17:17 Dose: 500 mg Admin: 02/22/18 08:19 Dose: 500 mg Admin: 02/21/18 17:17 Dose: 500 mg Admin: 02/21/18 08:09 Dose: 500 mg Admin: 02/20/18 17:29 Dose: 500 mg Admin: 02/20/18 08:07 Dose: 500 mg Admin: 02/19/18 17:51 Dose: 500 mg Admin: 02/19/18 08:13 Dose: 500 mg Admin: 02/18/18 17:15 Dose: 500 mg Admin: 02/18/18 07:42 Dose: 500 mg Admin: 02/17/18 17:26 Dose: 500 mg Admin: 02/17/18 09:38 Dose: Not Given Admin: 02/16/18 17:39 Dose: 500 mg Admin: 02/16/18 08:15 Dose: 500 mg Admin: 02/15/18 17:41 Dose: 500 mg Admin: 02/15/18 08:11 Dose: 500 mg Admin: 02/14/18 17:41 Dose: 500 mg Admin: 02/14/18 07:46 Dose: 500 mg Admin: 02/13/18 17:34 Dose: 500 mg Admin: 02/13/18 07:42 Dose: 500 mg Admin: 02/12/18 18:18 Dose: 500 mg Admin: 02/12/18 08:32 Dose: 500 mg Admin: 02/11/18 17:45 Dose: 500 mg Admin: 02/11/18 07:35 Dose: 500 mg Admin: 02/10/18 17:18 Dose: 500 mg Admin: 02/10/18 08:09 Dose: 500 mg Admin: 02/09/18 18:10 Dose: 500 mg Admin: 02/09/18 08:49 Dose: 500 mg Admin: 02/08/18 18:01 Dose: 500 mg Admin: 02/08/18 08:14 Dose: 500 mg Admin: 02/07/18 17:34 Dose: 500 mg Admin: 02/07/18 07:22 Dose: 500 mg Admin: 02/06/18 17:46 Dose: 500 mg Admin: 02/06/18 07:42 Dose: 500 mg Admin: 02/05/18 17:37 Dose: 500 mg Admin: 02/05/18 08:13 Dose: 500 mg Admin: 02/04/18 17:49 Dose: 500 mg Admin: 02/04/18 08:05 Dose: 500 mg Admin: 02/03/18 18:13 Dose: 500 mg Admin: 02/03/18 08:14 Dose: 500 mg Admin: 02/02/18 18:00 Dose: 500 mg Admin: 02/02/18 08:46 Dose: 500 mg Admin: 02/01/18 18:04 Dose: 500 mg Admin: 02/01/18 07:59 Dose: 500 mg Admin: 01/31/18 17:41 Dose: 500 mg Admin: 01/31/18 08:22 Dose: 500 mg Admin: 01/30/18 17:58 Dose: 500 mg Admin: 01/30/18 08:14 Dose: 500 mg Admin: 01/29/18 17:31 Dose: 500 mg Admin: 01/29/18 07:39 Dose: 500 mg Admin: 01/28/18 17:48 Dose: 500 mg Admin: 01/28/18 07:36 Dose: 500 mg Admin: 01/27/18 17:19 Dose: 500 mg Admin: 01/27/18 07:27 Dose: 500 mg Admin: 01/26/18 17:16 Dose: 500 mg Admin: 01/26/18 07:39 Dose: 500 mg Admin: 01/25/18 17:31 Dose: 500 mg Admin: 01/25/18 07:43 Dose: 500 mg Admin: 01/24/18 17:36 Dose: 500 mg Admin: 01/24/18 08:09 Dose: 500 mg Admin: 01/23/18 17:54 Dose: 500 mg Admin: 01/23/18 08:11 Dose: 500 mg Admin: 01/22/18 18:24 Dose: 500 mg Admin: 01/22/18 08:23 Dose: 500 mg Admin: 01/21/18 17:21 Dose: 500 mg Admin: 01/21/18 07:49 Dose: 500 mg Admin: 01/20/18 17:09 Dose: 500 mg Admin: 01/20/18 07:18 Dose: 500 mg Admin: 01/19/18 17:46 Dose: 500 mg Admin: 01/19/18 08:22 Dose: 500 mg Admin: 01/18/18 17:12 Dose: 500 mg Admin: 01/18/18 07:23 Dose: 500 mg Admin: 01/17/18 17:52 Dose: 500 mg Admin: 01/17/18 07:23 Dose: 500 mg Admin: 01/16/18 17:10 Dose: 500 mg Admin: 01/16/18 07:44 Dose: 500 mg Admin: 01/15/18 17:44 Dose: 500 mg Admin: 01/15/18 07:58 Dose: 500 mg Admin: 01/14/18 17:55 Dose: 500 mg Admin: 01/14/18 07:39 Dose: 500 mg Admin: 01/13/18 18:12 Dose: 500 mg Admin: 01/13/18 08:20 Dose: 500 mg Admin: 01/12/18 17:29 Dose: 500 mg Admin: 01/12/18 08:17 Dose: 500 mg Admin: 01/11/18 18:00 Dose: 500 mg Admin: 01/11/18 08:41 Dose: 500 mg Admin: 01/10/18 17:44 Dose: 500 mg Admin: 01/10/18 08:25 Dose: 500 mg Admin: 01/09/18 17:47 Dose: 500 mg Admin: 01/09/18 08:33 Dose: 500 mg Admin: 01/08/18 17:04 Dose: 500 mg Admin: 01/08/18 07:27 Dose: 500 mg Admin: 01/07/18 17:10 Dose: 500 mg Admin: 01/07/18 07:31 Dose: 500 mg Admin: 01/06/18 17:14 Dose: 500 mg Admin: 01/06/18 07:32 Dose: 500 mg Admin: 01/05/18 19:57 Dose: 500 mg Admin: 01/05/18 08:12 Dose: 500 mg Admin: 01/04/18 18:10 Dose: 500 mg Admin: 01/04/18 08:17 Dose: 500 mg Admin: 01/03/18 18:01 Dose: 500 mg Admin: 01/03/18 08:14 Dose: 500 mg Admin: 01/02/18 17:52 Dose: 500 mg Admin: 01/02/18 08:06 Dose: 500 mg Admin: 01/01/18 17:18 Dose: 500 mg Admin: 01/01/18 07:28 Dose: 500 mg Admin: 12/31/17 17:32 Dose: 500 mg Admin: 12/31/17 07:22 Dose: 500 mg Admin: 12/30/17 17:59 Dose: 500 mg Admin: 12/30/17 08:26 Dose: 500 mg Admin: 12/29/17 17:35 Dose: 500 mg Admin: 12/29/17 08:12 Dose: 500 mg Admin: 12/28/17 17:37 Dose: 500 mg Admin: 12/28/17 07:26 Dose: 500 mg Admin: 12/27/17 17:17 Dose: 500 mg Admin: 12/27/17 07:11 Dose: 500 mg Admin: 12/26/17 17:13 Dose: 500 mg Admin: 12/26/17 07:38 Dose: 500 mg Admin: 12/25/17 18:02 Dose: 500 mg Admin: 12/25/17 08:07 Dose: 500 mg Admin: 12/24/17 18:06 Dose: 500 mg Admin: 12/24/17 08:17 Dose: 500 mg Admin: 12/23/17 17:32 Dose: 500 mg Admin: 12/23/17 07:36 Dose: 500 mg Admin: 12/22/17 17:32 Dose: 500 mg Admin: 12/22/17 08:15 Dose: 500 mg Admin: 12/21/17 17:49 Dose: 500 mg Admin: 12/21/17 08:06 Dose: 500 mg Admin: 12/20/17 17:53 Dose: 500 mg Admin: 12/20/17 08:16 Dose: 500 mg Admin: 12/19/17 17:39 Dose: 500 mg Admin: 12/19/17 07:53 Dose: 500 mg Admin: 12/18/17 17:49 Dose: 500 mg Admin: 12/18/17 08:27 Dose: 500 mg Admin: 12/17/17 17:11 Dose: 500 mg Admin: 12/17/17 07:35 Dose: 500 mg Admin: 12/16/17 17:12 Dose: 500 mg Admin: 12/16/17 07:24 Dose: 500 mg Admin: 12/15/17 17:22 Dose: 500 mg Admin: 12/15/17 07:27 Dose: 500 mg Admin: 12/14/17 17:21 Dose: 500 mg Admin: 12/14/17 08:06 Dose: 500 mg Admin: 12/13/17 17:26 Dose: 500 mg Admin: 12/13/17 08:20 Dose: 500 mg Admin: 12/12/17 17:54 Dose: 500 mg Admin: 12/12/17 08:15 Dose: 500 mg Admin: 12/11/17 17:39 Dose: 500 mg Admin: 12/11/17 07:52 Dose: 500 mg Admin: 12/10/17 18:00 Dose: 500 mg Admin: 12/10/17 08:00 Dose: 500 mg Admin: 12/09/17 17:25 Dose: 500 mg Admin: 12/09/17 08:13 Dose: 500 mg Admin: 12/08/17 17:58 Dose: 500 mg Admin: 12/08/17 07:22 Dose: 500 mg Admin: 12/07/17 17:09 Dose: 500 mg Admin: 12/07/17 07:30 Dose: 500 mg Admin: 12/06/17 17:14 Dose: 500 mg Admin: 12/06/17 07:33 Dose: 500 mg Admin: 12/05/17 17:28 Dose: 500 mg Admin: 12/05/17 08:14 Dose: 500 mg Admin: 12/04/17 18:00 Dose: 500 mg Admin: 12/04/17 07:57 Dose: 500 mg Admin: 12/03/17 17:54 Dose: 500 mg Admin: 12/03/17 09:15 Dose: 500 mg Admin: 12/02/17 17:34 Dose: 500 mg Admin: 12/02/17 08:07 Dose: 500 mg Admin: 12/01/17 17:58 Dose: 500 mg Admin: 12/01/17 08:04 Dose: 500 mg Admin: 11/30/17 17:12 Dose: 500 mg Admin: 11/30/17 08:04 Dose: 500 mg Admin: 11/29/17 18:11 Dose: 500 mg Admin: 11/29/17 08:08 Dose: 500 mg Admin: 11/28/17 17:33 Dose: 500 mg Admin: 11/28/17 08:25 Dose: 500 mg Admin: 11/27/17 17:51 Dose: 500 mg Admin: 11/27/17 08:17 Dose: 500 mg Admin: 11/26/17 17:37 Dose: 500 mg Admin: 11/26/17 08:17 Dose: 500 mg Admin: 11/25/17 17:23 Dose: 500 mg Levothyroxine Sodium (137 Mcg Tablets) 137 mcg PO BEDTIME MIESHA Last Admin: 04/29/18 19:18 Dose: 137 mcg Admin: 04/28/18 19:24 Dose: 137 mcg Admin: 04/27/18 19:24 Dose: 137 mcg Admin: 04/26/18 19:13 Dose: 137 mcg Admin: 04/25/18 19:30 Dose: 137 mcg Admin: 04/24/18 19:17 Dose: 137 mcg Admin: 04/23/18 19:57 Dose: 137 mcg Admin: 04/22/18 20:07 Dose: 137 mcg Admin: 04/21/18 19:22 Dose: 137 mcg Admin: 04/20/18 19:18 Dose: 137 mcg Admin: 04/19/18 19:22 Dose: 137 mcg Admin: 04/18/18 19:18 Dose: 137 mcg Admin: 04/17/18 20:09 Dose: 137 mcg Admin: 04/16/18 19:27 Dose: 137 mcg Admin: 04/15/18 19:13 Dose: 137 mcg Admin: 04/14/18 19:21 Dose: 137 mcg Admin: 04/13/18 19:28 Dose: 137 mcg Admin: 04/12/18 19:35 Dose: 137 mcg Admin: 04/11/18 19:21 Dose: 137 mcg Admin: 04/10/18 19:23 Dose: 137 mcg Admin: 04/09/18 19:42 Dose: 137 mcg Admin: 04/08/18 19:34 Dose: 137 mcg Admin: 04/07/18 19:19 Dose: 137 mcg Admin: 04/06/18 19:27 Dose: 137 mcg Admin: 04/05/18 19:37 Dose: 137 mcg Admin: 04/04/18 19:27 Dose: 137 mcg Admin: 04/03/18 19:23 Dose: 137 mcg Admin: 04/02/18 19:13 Dose: 137 mcg Admin: 04/01/18 19:22 Dose: 137 mcg Admin: 03/31/18 19:33 Dose: 137 mcg Admin: 03/31/18 03:22 Dose: Not Given Admin: 03/29/18 20:00 Dose: 137 mcg Admin: 03/28/18 20:03 Dose: 137 mcg Admin: 03/27/18 19:46 Dose: 137 mcg Admin: 03/26/18 19:29 Dose: 137 mcg Admin: 03/25/18 19:22 Dose: 137 mcg Admin: 03/24/18 19:32 Dose: 137 mcg Admin: 03/23/18 19:18 Dose: 137 mcg Admin: 03/22/18 19:12 Dose: 137 mcg Admin: 03/21/18 19:16 Dose: 137 mcg Admin: 03/20/18 19:12 Dose: 137 mcg Admin: 03/19/18 19:24 Dose: 137 mcg Admin: 03/18/18 20:01 Dose: 137 mcg Admin: 03/17/18 19:33 Dose: 137 mcg Admin: 03/16/18 19:57 Dose: 137 mcg Admin: 03/15/18 19:50 Dose: 137 mcg Admin: 03/14/18 19:36 Dose: 137 mcg Admin: 03/13/18 19:50 Dose: 137 mcg Admin: 03/12/18 19:09 Dose: 137 mcg Admin: 03/11/18 19:20 Dose: 137 mcg Admin: 03/10/18 19:50 Dose: 137 mcg Admin: 03/09/18 19:14 Dose: 137 mcg Admin: 03/08/18 19:32 Dose: 137 mcg Admin: 03/07/18 19:06 Dose: 137 mcg Admin: 03/06/18 19:45 Dose: 137 mcg Admin: 03/05/18 19:43 Dose: 137 mcg Admin: 03/04/18 19:27 Dose: 137 mcg Admin: 03/03/18 19:30 Dose: 137 mcg Admin: 03/02/18 19:28 Dose: 137 mcg Admin: 03/01/18 19:17 Dose: 137 mcg Admin: 02/28/18 19:12 Dose: 137 mcg Admin: 02/27/18 19:23 Dose: 137 mcg Admin: 02/26/18 19:36 Dose: 137 mcg Admin: 02/25/18 19:38 Dose: 137 mcg Admin: 02/24/18 19:32 Dose: 137 mcg Admin: 02/23/18 19:26 Dose: 137 mcg Admin: 02/22/18 19:25 Dose: 137 mcg Admin: 02/21/18 19:39 Dose: 137 mcg Admin: 02/20/18 19:33 Dose: 137 mcg Admin: 02/19/18 19:08 Dose: 137 mcg Admin: 02/18/18 19:33 Dose: 137 mcg Admin: 02/17/18 19:17 Dose: 137 mcg Admin: 02/16/18 19:38 Dose: 137 mcg Admin: 02/15/18 19:39 Dose: 137 mcg Admin: 02/14/18 19:52 Dose: 137 mcg Admin: 02/13/18 19:38 Dose: 137 mcg Admin: 02/12/18 19:44 Dose: 137 mcg Admin: 02/11/18 19:56 Dose: 137 mcg Admin: 02/10/18 19:22 Dose: 137 mcg Admin: 02/09/18 20:04 Dose: 137 mcg Admin: 02/08/18 19:15 Dose: 137 mcg Admin: 02/07/18 19:23 Dose: 137 mcg Admin: 02/06/18 19:56 Dose: 137 mcg Admin: 02/05/18 20:13 Dose: 137 mcg Admin: 02/04/18 19:16 Dose: 137 mcg Admin: 02/03/18 21:03 Dose: 137 mcg Admin: 02/02/18 20:19 Dose: 137 mcg Admin: 02/01/18 19:55 Dose: 137 mcg Admin: 01/31/18 19:33 Dose: 137 mcg Admin: 01/30/18 19:37 Dose: 137 mcg Admin: 01/29/18 19:10 Dose: 137 mcg Admin: 01/28/18 19:29 Dose: 137 mcg Admin: 01/27/18 19:38 Dose: 137 mcg Admin: 01/26/18 19:40 Dose: 137 mcg Admin: 01/25/18 19:28 Dose: 137 mcg Admin: 01/24/18 19:52 Dose: 137 mcg Admin: 01/23/18 19:38 Dose: 137 mcg Admin: 01/22/18 19:10 Dose: 137 mcg Admin: 01/21/18 19:40 Dose: 137 mcg Admin: 01/20/18 19:11 Dose: 137 mcg Admin: 01/19/18 19:17 Dose: 137 mcg Admin: 01/18/18 19:06 Dose: 137 mcg Admin: 01/17/18 19:20 Dose: 137 mcg Admin: 01/16/18 19:50 Dose: 137 mcg Admin: 01/15/18 19:39 Dose: 137 mcg Admin: 01/14/18 19:31 Dose: 137 mcg Admin: 01/13/18 19:46 Dose: 137 mcg Admin: 01/12/18 19:37 Dose: 137 mcg Admin: 01/11/18 19:14 Dose: 137 mcg Admin: 01/10/18 19:53 Dose: 137 mcg Admin: 01/09/18 19:29 Dose: 137 mcg Admin: 01/08/18 19:31 Dose: 137 mcg Admin: 01/07/18 19:27 Dose: 137 mcg Admin: 01/06/18 19:17 Dose: 137 mcg Admin: 01/05/18 19:58 Dose: 137 mcg Admin: 01/04/18 19:30 Dose: 137 mcg Admin: 01/03/18 19:26 Dose: 137 mcg Admin: 01/02/18 19:23 Dose: 137 mcg Admin: 01/01/18 19:05 Dose: 137 mcg Admin: 12/31/17 19:28 Dose: 137 mcg Admin: 12/30/17 19:39 Dose: 137 mcg Admin: 12/29/17 19:37 Dose: 137 mcg Admin: 12/28/17 19:07 Dose: 137 mcg Admin: 12/27/17 19:24 Dose: 137 mcg Admin: 12/26/17 19:21 Dose: 137 mcg Admin: 12/25/17 19:49 Dose: 137 mcg Admin: 12/24/17 19:36 Dose: 137 mcg Admin: 12/23/17 19:11 Dose: 137 mcg Admin: 12/22/17 19:22 Dose: 137 mcg Admin: 12/21/17 19:30 Dose: 137 mcg Admin: 12/20/17 19:37 Dose: 137 mcg Admin: 12/19/17 19:42 Dose: 137 mcg Admin: 12/18/17 19:37 Dose: 137 mcg Admin: 12/17/17 19:07 Dose: 137 mcg Admin: 12/16/17 19:29 Dose: 137 mcg Admin: 12/15/17 19:29 Dose: 137 mcg Admin: 12/14/17 20:05 Dose: 137 mcg Admin: 12/13/17 19:14 Dose: 137 mcg Admin: 12/12/17 19:59 Dose: 137 mcg Admin: 12/11/17 19:43 Dose: 137 mcg Admin: 12/10/17 19:54 Dose: 137 mcg Admin: 12/09/17 19:17 Dose: 137 mcg Admin: 12/08/17 19:21 Dose: 137 mcg Admin: 12/07/17 19:28 Dose: 137 mcg Admin: 12/06/17 19:12 Dose: 137 mcg Admin: 12/05/17 19:16 Dose: 137 mcg Admin: 12/04/17 19:27 Dose: 137 mcg Admin: 12/03/17 19:14 Dose: 137 mcg Admin: 12/02/17 19:23 Dose: 137 mcg Admin: 12/01/17 19:27 Dose: 137 mcg Admin: 11/30/17 19:30 Dose: 137 mcg Admin: 11/29/17 19:10 Dose: 137 mcg Admin: 11/28/17 19:14 Dose: 137 mcg Admin: 11/27/17 19:22 Dose: 137 mcg Admin: 11/26/17 19:20 Dose: 137 mcg Admin: 11/25/17 19:21 Dose: 137 mcg Potassium Chloride (Potassium Chloride Solution) 40 meq PO TID@08,14,20 MIESHA Last Admin: 04/30/18 07:24 Dose: 40 meq Admin: 04/29/18 19:17 Dose: 40 meq Admin: 04/29/18 13:07 Dose: 40 meq Admin: 04/29/18 07:18 Dose: 40 meq Admin: 04/28/18 19:24 Dose: 40 meq Admin: 04/28/18 14:24 Dose: 40 meq Admin: 04/28/18 07:45 Dose: 40 meq Admin: 04/27/18 19:25 Dose: 40 meq Admin: 04/27/18 13:38 Dose: 40 meq Admin: 04/27/18 07:57 Dose: 40 meq Admin: 04/26/18 19:13 Dose: 40 meq Admin: 04/26/18 14:48 Dose: 40 meq Admin: 04/26/18 08:08 Dose: 40 meq Admin: 04/25/18 19:30 Dose: 40 meq Admin: 04/25/18 13:29 Dose: 40 meq Admin: 04/25/18 07:54 Dose: 40 meq Admin: 04/24/18 19:18 Dose: 40 meq Admin: 04/24/18 13:50 Dose: 40 meq Admin: 04/24/18 07:56 Dose: 40 meq Admin: 04/23/18 19:59 Dose: 40 meq Admin: 04/23/18 13:01 Dose: 40 meq Admin: 04/23/18 07:18 Dose: 40 meq Admin: 04/22/18 20:08 Dose: 40 meq Admin: 04/22/18 13:22 Dose: 40 meq Admin: 04/22/18 07:28 Dose: 40 meq Admin: 04/21/18 19:22 Dose: 40 meq Admin: 04/21/18 13:03 Dose: 40 meq Admin: 04/21/18 07:11 Dose: 40 meq Admin: 04/20/18 19:18 Dose: 40 meq Admin: 04/20/18 14:15 Dose: 40 meq Admin: 04/20/18 08:09 Dose: 40 meq Admin: 04/19/18 19:21 Dose: 40 meq Admin: 04/19/18 13:25 Dose: 40 meq Admin: 04/19/18 07:43 Dose: 40 meq Admin: 04/18/18 19:18 Dose: 40 meq Admin: 04/18/18 13:28 Dose: 40 meq Admin: 04/18/18 07:50 Dose: 40 meq Admin: 04/17/18 20:09 Dose: 40 meq Admin: 04/17/18 13:47 Dose: 40 meq Admin: 04/17/18 07:46 Dose: 40 meq Admin: 04/16/18 19:28 Dose: 40 meq Admin: 04/16/18 14:19 Dose: 40 meq Admin: 04/16/18 07:54 Dose: 40 meq Admin: 04/15/18 19:12 Dose: 40 meq Admin: 04/15/18 13:18 Dose: 40 meq Admin: 04/15/18 07:26 Dose: 40 meq Admin: 04/14/18 19:22 Dose: 40 meq Admin: 04/14/18 13:28 Dose: 40 meq Admin: 04/14/18 07:22 Dose: 40 meq Admin: 04/13/18 19:29 Dose: 40 meq Admin: 04/13/18 14:02 Dose: 40 meq Admin: 04/13/18 07:55 Dose: 40 meq Admin: 04/12/18 19:35 Dose: 40 meq Admin: 04/12/18 13:45 Dose: 40 meq Admin: 04/12/18 07:14 Dose: 40 meq Admin: 04/11/18 19:21 Dose: 40 meq Admin: 04/11/18 13:29 Dose: 40 meq Admin: 04/11/18 07:30 Dose: 40 meq Admin: 04/10/18 19:22 Dose: 40 meq Admin: 04/10/18 13:07 Dose: 40 meq Admin: 04/10/18 07:13 Dose: 40 meq Admin: 04/09/18 19:43 Dose: 40 meq Admin: 04/09/18 13:30 Dose: 40 meq Admin: 04/09/18 08:13 Dose: 40 meq Admin: 04/08/18 19:35 Dose: 40 meq Admin: 04/08/18 13:31 Dose: 40 meq Admin: 04/08/18 08:32 Dose: 40 meq Admin: 04/07/18 19:20 Dose: 40 meq Admin: 04/07/18 13:41 Dose: 40 meq Admin: 04/07/18 07:25 Dose: 40 meq Admin: 04/06/18 19:28 Dose: 40 meq Admin: 04/06/18 13:58 Dose: 40 meq Admin: 04/06/18 08:05 Dose: 40 meq Admin: 04/05/18 19:38 Dose: 40 meq Admin: 04/05/18 13:48 Dose: 40 meq Admin: 04/05/18 07:29 Dose: 40 meq Admin: 04/04/18 19:28 Dose: 40 meq Admin: 04/04/18 13:14 Dose: 40 meq Admin: 04/04/18 08:26 Dose: 40 meq Admin: 04/03/18 19:23 Dose: 40 meq Admin: 04/03/18 13:22 Dose: 40 meq Admin: 04/03/18 08:25 Dose: 40 meq Admin: 04/02/18 19:13 Dose: 40 meq Admin: 04/02/18 13:13 Dose: 40 meq Admin: 04/02/18 07:20 Dose: 40 meq Admin: 04/01/18 19:23 Dose: 40 meq Admin: 04/01/18 13:41 Dose: 40 meq Admin: 04/01/18 08:31 Dose: 40 meq Admin: 03/31/18 19:34 Dose: 40 meq Admin: 03/31/18 13:18 Dose: 40 meq Admin: 03/31/18 07:18 Dose: 40 meq Admin: 03/31/18 03:23 Dose: Not Given Admin: 03/30/18 13:14 Dose: 40 meq Admin: 03/30/18 07:29 Dose: 40 meq Admin: 03/29/18 20:00 Dose: 40 meq Admin: 03/29/18 13:23 Dose: 40 meq Admin: 03/29/18 07:58 Dose: 40 meq Admin: 03/28/18 20:03 Dose: 40 meq Admin: 03/28/18 13:28 Dose: 40 meq Admin: 03/28/18 07:29 Dose: 40 meq Admin: 03/27/18 19:47 Dose: 40 meq Admin: 03/27/18 13:45 Dose: 40 meq Admin: 03/27/18 07:59 Dose: 40 meq Admin: 03/26/18 19:30 Dose: 40 meq Admin: 03/26/18 13:16 Dose: 40 meq Admin: 03/26/18 07:55 Dose: 40 meq Admin: 03/25/18 19:23 Dose: 40 meq Admin: 03/25/18 14:27 Dose: 40 meq Admin: 03/25/18 07:39 Dose: 40 meq Admin: 03/24/18 19:32 Dose: 40 meq Admin: 03/24/18 13:03 Dose: 40 meq Admin: 03/24/18 07:21 Dose: 40 meq Admin: 03/23/18 19:20 Dose: 40 meq Admin: 03/23/18 13:07 Dose: 40 meq Admin: 03/23/18 07:24 Dose: 40 meq Admin: 03/22/18 19:11 Dose: 40 meq Admin: 03/22/18 13:01 Dose: 40 meq Admin: 03/22/18 07:20 Dose: 40 meq Admin: 03/21/18 19:16 Dose: 40 meq Admin: 03/21/18 13:09 Dose: 40 meq Admin: 03/21/18 07:18 Dose: 40 meq Admin: 03/20/18 19:11 Dose: 40 meq Admin: 03/20/18 13:15 Dose: 40 meq Admin: 03/20/18 07:21 Dose: 40 meq Admin: 03/19/18 19:26 Dose: 40 meq Admin: 03/19/18 13:42 Dose: 40 meq Admin: 03/19/18 08:03 Dose: 40 meq Admin: 03/18/18 20:02 Dose: 40 meq Admin: 03/18/18 14:28 Dose: 40 meq Admin: 03/18/18 08:10 Dose: 40 meq Admin: 03/17/18 19:33 Dose: 40 meq Admin: 03/17/18 13:02 Dose: 40 meq Admin: 03/17/18 07:37 Dose: 40 meq Admin: 03/16/18 20:00 Dose: 40 meq Admin: 03/16/18 15:07 Dose: 40 meq Admin: 03/16/18 08:21 Dose: 40 meq Admin: 03/15/18 19:51 Dose: 40 meq Admin: 03/15/18 14:01 Dose: 40 meq Admin: 03/15/18 08:19 Dose: 40 meq Admin: 03/14/18 19:36 Dose: 40 meq Admin: 03/14/18 14:10 Dose: 40 meq Admin: 03/14/18 08:15 Dose: 40 meq Admin: 03/13/18 19:50 Dose: 40 meq Admin: 03/13/18 13:43 Dose: 40 meq Admin: 03/13/18 07:57 Dose: 40 meq Admin: 03/12/18 19:09 Dose: 40 meq Admin: 03/12/18 13:20 Dose: 40 meq Admin: 03/12/18 07:37 Dose: 40 meq Admin: 03/11/18 19:20 Dose: 40 meq Admin: 03/11/18 14:48 Dose: 40 meq Admin: 03/11/18 07:58 Dose: 40 meq Admin: 03/10/18 19:51 Dose: 40 meq Admin: 03/10/18 13:10 Dose: 40 meq Admin: 03/10/18 08:32 Dose: 40 meq Admin: 03/09/18 19:16 Dose: 40 meq Admin: 03/09/18 13:34 Dose: 40 meq Admin: 03/09/18 08:19 Dose: 40 meq Admin: 03/08/18 19:32 Dose: 40 meq Admin: 03/08/18 13:08 Dose: 40 meq Admin: 03/08/18 07:58 Dose: 40 meq Admin: 03/07/18 19:05 Dose: 40 meq Admin: 03/07/18 13:56 Dose: 40 meq Admin: 03/07/18 08:01 Dose: 40 meq Admin: 03/06/18 19:46 Dose: 40 meq Admin: 03/06/18 15:18 Dose: 40 meq Admin: 03/06/18 08:20 Dose: 40 meq Admin: 03/05/18 19:44 Dose: 40 meq Admin: 03/05/18 14:26 Dose: 40 meq Admin: 03/05/18 08:01 Dose: 40 meq Admin: 03/04/18 19:28 Dose: 40 meq Admin: 03/04/18 13:19 Dose: 40 meq Admin: 03/04/18 08:13 Dose: 40 meq Admin: 03/03/18 19:31 Dose: 40 meq Admin: 03/03/18 13:02 Dose: 40 meq Admin: 03/03/18 07:16 Dose: 40 meq Admin: 03/02/18 19:28 Dose: 40 meq Admin: 03/02/18 13:17 Dose: 40 meq Admin: 03/02/18 07:59 Dose: 40 meq Admin: 03/01/18 19:17 Dose: 40 meq Admin: 03/01/18 13:10 Dose: 40 meq Admin: 03/01/18 07:37 Dose: 40 meq Admin: 02/28/18 19:12 Dose: 40 meq Admin: 02/28/18 13:08 Dose: 40 meq Admin: 02/28/18 07:47 Dose: 40 meq Admin: 02/27/18 19:23 Dose: 40 meq Admin: 02/27/18 13:48 Dose: 40 meq Admin: 02/27/18 08:14 Dose: 40 meq Admin: 02/26/18 19:37 Dose: 40 meq Admin: 02/26/18 14:15 Dose: 40 meq Admin: 02/26/18 08:16 Dose: 40 meq Admin: 02/25/18 19:39 Dose: 40 meq Admin: 02/25/18 13:33 Dose: 40 meq Admin: 02/25/18 08:05 Dose: 40 meq Admin: 02/24/18 19:32 Dose: 40 meq Admin: 02/24/18 13:49 Dose: 40 meq Admin: 02/24/18 08:20 Dose: 40 meq Admin: 02/23/18 19:27 Dose: 40 meq Admin: 02/23/18 13:29 Dose: 40 meq Admin: 02/23/18 07:53 Dose: 40 meq Admin: 02/22/18 19:26 Dose: 40 meq Admin: 02/22/18 13:39 Dose: 40 meq Admin: 02/22/18 08:19 Dose: 40 meq Admin: 02/21/18 19:40 Dose: 40 meq Admin: 02/21/18 14:05 Dose: 40 meq Admin: 02/21/18 08:09 Dose: 40 meq Admin: 02/20/18 19:33 Dose: 40 meq Admin: 02/20/18 14:16 Dose: 40 meq Admin: 02/20/18 08:09 Dose: 40 meq Admin: 02/19/18 19:07 Dose: 40 meq Admin: 02/19/18 13:56 Dose: 40 meq Admin: 02/19/18 08:14 Dose: 40 meq Admin: 02/18/18 19:35 Dose: 40 meq Admin: 02/18/18 13:01 Dose: 40 meq Admin: 02/18/18 07:43 Dose: 40 meq Admin: 02/17/18 19:19 Dose: 40 meq Admin: 02/17/18 13:13 Dose: 40 meq Admin: 02/17/18 09:38 Dose: Not Given Admin: 02/16/18 19:38 Dose: 40 meq Admin: 02/16/18 13:52 Dose: 40 meq Admin: 02/16/18 08:15 Dose: 40 meq Admin: 02/15/18 19:40 Dose: 40 meq Admin: 02/15/18 14:06 Dose: 40 meq Admin: 02/15/18 08:11 Dose: 40 meq Admin: 02/14/18 19:52 Dose: 40 meq Admin: 02/14/18 14:01 Dose: 40 meq Admin: 02/14/18 07:47 Dose: 40 meq Admin: 02/13/18 19:38 Dose: 40 meq Admin: 02/13/18 14:17 Dose: 40 meq Admin: 02/13/18 07:43 Dose: 40 meq Admin: 02/12/18 19:44 Dose: 40 meq Admin: 02/12/18 13:41 Dose: 40 meq Admin: 02/12/18 08:33 Dose: 40 meq Admin: 02/11/18 19:56 Dose: 40 meq Admin: 02/11/18 14:02 Dose: 40 meq Admin: 02/11/18 07:36 Dose: 40 meq Admin: 02/10/18 19:24 Dose: 40 meq Admin: 02/10/18 13:56 Dose: 40 meq Admin: 02/10/18 08:09 Dose: 40 meq Admin: 02/09/18 20:05 Dose: 40 meq Admin: 02/09/18 13:43 Dose: 40 meq Admin: 02/09/18 08:49 Dose: 40 meq Admin: 02/08/18 19:15 Dose: 40 meq Admin: 02/08/18 13:09 Dose: 40 meq Admin: 02/08/18 08:16 Dose: 40 meq Admin: 02/07/18 19:24 Dose: 40 meq Admin: 02/07/18 14:21 Dose: 40 meq Admin: 02/07/18 07:22 Dose: 40 meq Admin: 02/06/18 19:57 Dose: 40 meq Admin: 02/06/18 14:22 Dose: 40 meq Admin: 02/06/18 07:42 Dose: 40 meq Admin: 02/05/18 20:14 Dose: 40 meq Admin: 02/05/18 14:02 Dose: 40 meq Admin: 02/05/18 08:14 Dose: 40 meq Admin: 02/04/18 19:15 Dose: 40 meq Admin: 02/04/18 13:41 Dose: 40 meq Admin: 02/04/18 08:07 Dose: 40 meq Admin: 02/03/18 21:05 Dose: 40 meq Admin: 02/03/18 13:12 Dose: 40 meq Admin: 02/03/18 08:16 Dose: 40 meq Admin: 02/02/18 20:19 Dose: 40 meq Admin: 02/02/18 13:58 Dose: 40 meq Admin: 02/02/18 08:49 Dose: 40 meq Admin: 02/01/18 19:57 Dose: 40 meq Admin: 02/01/18 13:30 Dose: 40 meq Admin: 02/01/18 08:00 Dose: 40 meq Admin: 01/31/18 19:33 Dose: 40 meq Admin: 01/31/18 14:50 Dose: 40 meq Admin: 01/31/18 08:23 Dose: 40 meq Admin: 01/30/18 19:37 Dose: 40 meq Admin: 01/30/18 13:42 Dose: 40 meq Admin: 01/30/18 08:15 Dose: 40 meq Admin: 01/29/18 19:12 Dose: 40 meq Admin: 01/29/18 13:56 Dose: 40 meq Admin: 01/29/18 07:40 Dose: 40 meq Admin: 01/28/18 19:29 Dose: 40 meq Admin: 01/28/18 13:22 Dose: 40 meq Admin: 01/28/18 07:37 Dose: 40 meq Admin: 01/27/18 19:39 Dose: 40 meq Admin: 01/27/18 13:38 Dose: 40 meq Admin: 01/27/18 07:27 Dose: 40 meq Admin: 01/26/18 19:41 Dose: 40 meq Admin: 01/26/18 13:52 Dose: 40 meq Admin: 01/26/18 07:42 Dose: 40 meq Admin: 01/25/18 19:29 Dose: 40 meq Admin: 01/25/18 14:00 Dose: 40 meq Admin: 01/25/18 07:44 Dose: 40 meq Admin: 01/24/18 19:52 Dose: 40 meq Admin: 01/24/18 14:08 Dose: 40 meq Admin: 01/24/18 08:11 Dose: 40 meq Admin: 01/23/18 19:39 Dose: 40 meq Admin: 01/23/18 13:26 Dose: 40 meq Admin: 01/23/18 08:12 Dose: 40 meq Admin: 01/22/18 19:12 Dose: 40 meq Admin: 01/22/18 14:45 Dose: 40 meq Admin: 01/22/18 08:23 Dose: 40 meq Admin: 01/21/18 19:41 Dose: 40 meq Admin: 01/21/18 13:14 Dose: 40 meq Admin: 01/21/18 07:49 Dose: 40 meq Admin: 01/20/18 19:12 Dose: 40 meq Admin: 01/20/18 13:45 Dose: 40 meq Admin: 01/20/18 07:19 Dose: 40 meq Admin: 01/19/18 19:17 Dose: 40 meq Admin: 01/19/18 14:02 Dose: 40 meq Admin: 01/19/18 08:22 Dose: 40 meq Admin: 01/18/18 19:06 Dose: 40 meq Admin: 01/18/18 13:05 Dose: 40 meq Admin: 01/18/18 07:24 Dose: 40 meq Admin: 01/17/18 19:20 Dose: 40 meq Admin: 01/17/18 13:13 Dose: 40 meq Admin: 01/17/18 07:23 Dose: 40 meq Admin: 01/16/18 19:50 Dose: 40 meq Admin: 01/16/18 13:06 Dose: 40 meq Admin: 01/16/18 07:45 Dose: 40 meq Admin: 01/15/18 19:40 Dose: 40 meq Admin: 01/15/18 14:13 Dose: 40 meq Admin: 01/15/18 07:59 Dose: 40 meq Admin: 01/14/18 19:31 Dose: 40 meq Admin: 01/14/18 14:36 Dose: 40 meq Admin: 01/14/18 07:40 Dose: 40 meq Admin: 01/13/18 19:47 Dose: 40 meq Admin: 01/13/18 14:08 Dose: 40 meq Admin: 01/13/18 08:19 Dose: 40 meq Admin: 01/12/18 19:38 Dose: 40 meq Admin: 01/12/18 13:18 Dose: 40 meq Admin: 01/12/18 08:19 Dose: 40 meq Admin: 01/11/18 19:15 Dose: 40 meq Admin: 01/11/18 14:58 Dose: 40 meq Admin: 01/11/18 09:30 Dose: 40 meq Admin: 01/10/18 19:55 Dose: 40 meq Admin: 01/10/18 15:11 Dose: 40 meq Admin: 01/10/18 08:26 Dose: 40 meq Admin: 01/09/18 19:31 Dose: 40 meq Admin: 01/09/18 14:27 Dose: 40 meq Admin: 01/09/18 08:31 Dose: 40 meq Admin: 01/08/18 19:32 Dose: 40 meq Admin: 01/08/18 13:12 Dose: 40 meq Admin: 01/08/18 07:28 Dose: 40 meq Admin: 01/07/18 19:28 Dose: 40 meq Admin: 01/07/18 13:26 Dose: 40 meq Admin: 01/07/18 07:32 Dose: 40 meq Admin: 01/06/18 19:20 Dose: 40 meq Admin: 01/06/18 13:07 Dose: 40 meq Admin: 01/06/18 07:33 Dose: 40 meq Admin: 01/05/18 19:58 Dose: 40 meq Admin: 01/05/18 14:59 Dose: 40 meq Admin: 01/05/18 08:13 Dose: 40 meq Admin: 01/04/18 19:31 Dose: 40 meq Admin: 01/04/18 13:39 Dose: 40 meq Admin: 01/04/18 08:19 Dose: 40 meq Admin: 01/03/18 19:26 Dose: 40 meq Admin: 01/03/18 14:25 Dose: 40 meq Admin: 01/03/18 08:15 Dose: 40 meq Admin: 01/02/18 19:24 Dose: 40 meq Admin: 01/02/18 14:20 Dose: 40 meq Admin: 01/02/18 08:07 Dose: 40 meq Admin: 01/01/18 19:05 Dose: 40 meq Admin: 01/01/18 13:00 Dose: 40 meq Admin: 01/01/18 07:28 Dose: 40 meq Admin: 12/31/17 19:29 Dose: 40 meq Admin: 12/31/17 13:19 Dose: 40 meq Admin: 12/31/17 07:22 Dose: 40 meq Admin: 12/30/17 19:39 Dose: 40 meq Admin: 12/30/17 13:53 Dose: 40 meq Admin: 12/30/17 08:27 Dose: 40 meq Admin: 12/29/17 19:38 Dose: 40 meq Admin: 12/29/17 14:26 Dose: 40 meq Admin: 12/29/17 08:14 Dose: 40 meq Admin: 12/28/17 19:07 Dose: 40 meq Admin: 12/28/17 13:06 Dose: 40 meq Admin: 12/28/17 07:26 Dose: 40 meq Admin: 12/27/17 19:24 Dose: 40 meq Admin: 12/27/17 13:00 Dose: 40 meq Admin: 12/27/17 07:12 Dose: 40 meq Admin: 12/26/17 19:21 Dose: 40 meq Admin: 12/26/17 13:22 Dose: 40 meq Admin: 12/26/17 07:39 Dose: 40 meq Admin: 12/25/17 19:48 Dose: 40 meq Admin: 12/25/17 13:52 Dose: 40 meq Admin: 12/25/17 08:08 Dose: 40 meq Admin: 12/24/17 19:38 Dose: 40 meq Admin: 12/24/17 14:09 Dose: 40 meq Admin: 12/24/17 08:17 Dose: 40 meq Admin: 12/23/17 19:12 Dose: 40 meq Admin: 12/23/17 13:50 Dose: 40 meq Admin: 12/23/17 07:36 Dose: 40 meq Admin: 12/22/17 19:22 Dose: 40 meq Admin: 12/22/17 13:27 Dose: 40 meq Admin: 12/22/17 08:19 Dose: 40 meq Admin: 12/21/17 19:31 Dose: 40 meq Admin: 12/21/17 13:23 Dose: 40 meq Admin: 12/21/17 08:07 Dose: 40 meq Admin: 12/20/17 19:39 Dose: 40 meq Admin: 12/20/17 13:25 Dose: 40 meq Admin: 12/20/17 08:17 Dose: 40 meq Admin: 12/19/17 19:44 Dose: 40 meq Admin: 12/19/17 13:55 Dose: 40 meq Admin: 12/19/17 07:54 Dose: 40 meq Admin: 12/18/17 19:37 Dose: 40 meq Admin: 12/18/17 14:18 Dose: 40 meq Admin: 12/18/17 08:28 Dose: 40 meq Admin: 12/17/17 19:07 Dose: 40 meq Admin: 12/17/17 13:22 Dose: 40 meq Admin: 12/17/17 07:35 Dose: 40 meq Admin: 12/16/17 19:29 Dose: 40 meq Admin: 12/16/17 13:09 Dose: 40 meq Admin: 12/16/17 07:25 Dose: 40 meq Admin: 12/15/17 19:30 Dose: 40 meq Admin: 12/15/17 13:01 Dose: 40 meq Admin: 12/15/17 07:28 Dose: 40 meq Admin: 12/14/17 20:06 Dose: 40 meq Admin: 12/14/17 13:34 Dose: 40 meq Admin: 12/14/17 08:07 Dose: 40 meq Admin: 12/13/17 19:13 Dose: 40 meq Admin: 12/13/17 14:24 Dose: 40 meq Admin: 12/13/17 08:21 Dose: 40 meq Admin: 12/12/17 19:59 Dose: 40 meq Admin: 12/12/17 13:30 Dose: 40 meq Admin: 12/12/17 08:15 Dose: 40 meq Admin: 12/11/17 19:44 Dose: 40 meq Admin: 12/11/17 14:00 Dose: 40 meq Admin: 12/11/17 07:53 Dose: 40 meq Admin: 12/10/17 19:55 Dose: 40 meq Admin: 12/10/17 14:05 Dose: 40 meq Admin: 12/10/17 08:01 Dose: 40 meq Admin: 12/09/17 19:19 Dose: 40 meq Admin: 12/09/17 13:43 Dose: 40 meq Admin: 12/09/17 08:15 Dose: 40 meq Admin: 12/08/17 19:20 Dose: 40 meq Admin: 12/08/17 13:53 Dose: 40 meq Admin: 12/08/17 07:23 Dose: 40 meq Admin: 12/07/17 19:29 Dose: 40 meq Admin: 12/07/17 13:09 Dose: 40 meq Admin: 12/07/17 07:30 Dose: 40 meq Admin: 12/06/17 19:16 Dose: 40 meq Admin: 12/06/17 13:33 Dose: 40 meq Admin: 12/06/17 07:33 Dose: 40 meq Admin: 12/05/17 19:16 Dose: 40 meq Admin: 12/05/17 13:01 Dose: 40 meq Admin: 12/05/17 08:16 Dose: 40 meq Admin: 12/04/17 19:28 Dose: 40 meq Admin: 12/04/17 13:44 Dose: 40 meq Admin: 12/04/17 08:00 Dose: 40 meq Admin: 12/03/17 19:15 Dose: 40 meq Admin: 12/03/17 13:28 Dose: 40 meq Admin: 12/03/17 08:08 Dose: 40 meq Admin: 12/02/17 19:23 Dose: 40 meq Admin: 12/02/17 13:50 Dose: 40 meq Admin: 12/02/17 08:09 Dose: 40 meq Admin: 12/01/17 19:29 Dose: 40 meq Admin: 12/01/17 13:58 Dose: 40 meq Admin: 12/01/17 08:04 Dose: 40 meq Admin: 11/30/17 19:30 Dose: 40 meq Admin: 11/30/17 13:43 Dose: 40 meq Admin: 11/30/17 08:04 Dose: 40 meq Admin: 11/29/17 19:10 Dose: 40 meq Admin: 11/29/17 14:20 Dose: 40 meq Admin: 11/29/17 08:09 Dose: 40 meq Admin: 11/28/17 19:14 Dose: 40 meq Admin: 11/28/17 14:11 Dose: 40 meq Admin: 11/28/17 08:26 Dose: 40 meq Admin: 11/27/17 19:22 Dose: 40 meq Admin: 11/27/17 13:40 Dose: 40 meq Admin: 11/27/17 08:19 Dose: 40 meq Admin: 11/26/17 19:21 Dose: 40 meq Admin: 11/26/17 13:23 Dose: 40 meq Admin: 11/26/17 08:19 Dose: 40 meq Admin: 11/25/17 19:21 Dose: 40 meq Admin: 11/25/17 13:54 Dose: 40 meq Simvastatin (Zocor) 10 mg PO BEDTIME MIESHA Last Admin: 04/29/18 19:18 Dose: 10 mg Admin: 04/28/18 19:25 Dose: 10 mg Admin: 04/27/18 19:24 Dose: 10 mg Admin: 04/26/18 19:14 Dose: 10 mg Admin: 04/25/18 19:31 Dose: 10 mg Admin: 04/24/18 19:19 Dose: 10 mg Admin: 04/23/18 19:59 Dose: 10 mg Admin: 04/22/18 20:07 Dose: 10 mg Admin: 04/21/18 19:24 Dose: 10 mg Admin: 04/20/18 19:18 Dose: 10 mg Admin: 04/19/18 19:22 Dose: 10 mg Admin: 04/18/18 19:18 Dose: 10 mg Admin: 04/17/18 20:10 Dose: 10 mg Admin: 04/16/18 19:28 Dose: 10 mg Admin: 04/15/18 19:13 Dose: 10 mg Admin: 04/14/18 19:21 Dose: 10 mg Admin: 04/13/18 19:28 Dose: 10 mg Admin: 04/12/18 19:35 Dose: 10 mg Admin: 04/11/18 19:20 Dose: 10 mg Admin: 04/10/18 19:22 Dose: 10 mg Admin: 04/09/18 19:44 Dose: 10 mg Admin: 04/08/18 19:35 Dose: 10 mg Admin: 04/07/18 19:19 Dose: 10 mg Admin: 04/06/18 19:27 Dose: 10 mg Admin: 04/05/18 19:39 Dose: 10 mg Admin: 04/04/18 19:29 Dose: 10 mg Admin: 04/03/18 19:24 Dose: 10 mg Admin: 04/02/18 19:13 Dose: 10 mg Admin: 04/01/18 19:22 Dose: 10 mg Admin: 03/31/18 19:35 Dose: 10 mg Admin: 03/31/18 03:23 Dose: Not Given Admin: 03/29/18 20:01 Dose: 10 mg Admin: 03/28/18 20:04 Dose: 10 mg Admin: 03/27/18 19:48 Dose: 10 mg Admin: 03/26/18 19:31 Dose: 10 mg Admin: 03/25/18 19:24 Dose: 10 mg Admin: 03/24/18 19:33 Dose: 10 mg Admin: 03/23/18 19:19 Dose: 10 mg Admin: 03/22/18 19:12 Dose: 10 mg Admin: 03/21/18 19:16 Dose: 10 mg Admin: 03/20/18 19:12 Dose: 10 mg Admin: 03/19/18 19:24 Dose: 10 mg Admin: 03/18/18 20:02 Dose: 10 mg Admin: 03/17/18 19:33 Dose: 10 mg Admin: 03/16/18 19:57 Dose: 10 mg Admin: 03/15/18 19:52 Dose: 10 mg Admin: 03/14/18 19:37 Dose: 10 mg Admin: 03/13/18 19:51 Dose: 10 mg Admin: 03/12/18 19:09 Dose: 10 mg Admin: 03/11/18 19:20 Dose: 10 mg Admin: 03/10/18 19:50 Dose: 10 mg Admin: 03/09/18 19:15 Dose: 10 mg Admin: 03/08/18 19:31 Dose: 10 mg Admin: 03/07/18 19:06 Dose: 10 mg Admin: 03/06/18 19:47 Dose: 10 mg Admin: 03/05/18 19:46 Dose: 10 mg Admin: 03/04/18 19:29 Dose: 10 mg Admin: 03/03/18 19:32 Dose: 10 mg Admin: 03/02/18 19:29 Dose: 10 mg Admin: 03/01/18 19:17 Dose: 10 mg Admin: 02/28/18 19:12 Dose: 10 mg Admin: 02/27/18 19:23 Dose: 10 mg Admin: 02/26/18 19:37 Dose: 10 mg Admin: 02/25/18 19:39 Dose: 10 mg Admin: 02/24/18 19:33 Dose: 10 mg Admin: 02/23/18 19:26 Dose: 10 mg Admin: 02/22/18 19:26 Dose: 10 mg Admin: 02/21/18 19:41 Dose: 10 mg Admin: 02/20/18 19:36 Dose: 10 mg Admin: 02/19/18 19:08 Dose: 10 mg Admin: 02/18/18 19:34 Dose: 10 mg Admin: 02/17/18 19:17 Dose: 10 mg Admin: 02/16/18 19:38 Dose: 10 mg Admin: 02/15/18 19:40 Dose: 10 mg Admin: 02/14/18 19:53 Dose: 10 mg Admin: 02/13/18 19:53 Dose: 10 mg Admin: 02/12/18 19:47 Dose: 10 mg Admin: 02/11/18 19:57 Dose: 10 mg Admin: 02/10/18 19:23 Dose: 10 mg Admin: 02/09/18 20:05 Dose: 10 mg Admin: 02/08/18 19:15 Dose: 10 mg Admin: 02/07/18 19:24 Dose: 10 mg Admin: 02/06/18 19:57 Dose: 10 mg Admin: 02/05/18 20:13 Dose: 10 mg Admin: 02/04/18 19:15 Dose: 10 mg Admin: 02/03/18 21:04 Dose: 10 mg Admin: 02/02/18 20:20 Dose: 10 mg Admin: 02/01/18 19:58 Dose: 10 mg Admin: 01/31/18 19:34 Dose: 10 mg Admin: 01/30/18 19:38 Dose: 10 mg Admin: 01/29/18 19:10 Dose: 10 mg Admin: 01/28/18 19:29 Dose: 10 mg Admin: 01/27/18 19:39 Dose: 10 mg Admin: 01/26/18 19:42 Dose: 10 mg Admin: 01/25/18 19:30 Dose: 10 mg Admin: 01/24/18 19:53 Dose: 10 mg Admin: 01/23/18 19:39 Dose: 10 mg Admin: 01/22/18 19:10 Dose: 10 mg Admin: 01/21/18 19:42 Dose: 10 mg Admin: 01/20/18 19:10 Dose: 10 mg Admin: 01/19/18 19:17 Dose: 10 mg Admin: 01/18/18 19:06 Dose: 10 mg Admin: 01/17/18 19:21 Dose: 10 mg Admin: 01/16/18 19:50 Dose: 10 mg Admin: 01/15/18 19:39 Dose: 10 mg Admin: 01/14/18 19:31 Dose: 10 mg Admin: 01/13/18 19:48 Dose: 10 mg Admin: 01/12/18 19:39 Dose: 10 mg Admin: 01/11/18 19:15 Dose: 10 mg Admin: 01/10/18 19:54 Dose: 10 mg Admin: 01/09/18 19:29 Dose: 10 mg Admin: 01/08/18 19:32 Dose: 10 mg Admin: 01/07/18 19:27 Dose: 10 mg Admin: 01/06/18 19:17 Dose: 10 mg Admin: 01/05/18 20:00 Dose: 10 mg Admin: 01/04/18 19:31 Dose: 10 mg Admin: 01/03/18 19:27 Dose: 10 mg Admin: 01/02/18 19:25 Dose: 10 mg Admin: 01/01/18 19:06 Dose: 10 mg Admin: 12/31/17 19:28 Dose: 10 mg Admin: 12/30/17 19:41 Dose: 10 mg Admin: 12/29/17 19:37 Dose: 10 mg Admin: 12/28/17 19:07 Dose: 10 mg Admin: 12/27/17 19:24 Dose: 10 mg Admin: 12/26/17 19:21 Dose: 10 mg Admin: 12/25/17 19:49 Dose: 10 mg Admin: 12/24/17 19:37 Dose: 10 mg Admin: 12/23/17 19:13 Dose: 10 mg Admin: 12/22/17 19:23 Dose: 10 mg Admin: 12/21/17 19:32 Dose: 10 mg Admin: 12/20/17 19:40 Dose: 10 mg Admin: 12/19/17 19:45 Dose: 10 mg Admin: 12/18/17 19:38 Dose: 10 mg Admin: 12/17/17 19:07 Dose: 10 mg Admin: 12/16/17 19:30 Dose: 10 mg Admin: 12/15/17 19:30 Dose: 10 mg Admin: 12/14/17 20:07 Dose: 10 mg Admin: 12/13/17 19:14 Dose: 10 mg Admin: 12/12/17 20:00 Dose: 10 mg Admin: 12/11/17 19:43 Dose: 10 mg Admin: 12/10/17 19:56 Dose: 10 mg Admin: 12/09/17 19:19 Dose: 10 mg Admin: 12/08/17 19:21 Dose: 10 mg Admin: 12/07/17 19:30 Dose: 10 mg Admin: 12/06/17 19:17 Dose: 10 mg Admin: 12/05/17 19:16 Dose: 10 mg Admin: 12/04/17 19:27 Dose: 10 mg Admin: 12/03/17 19:16 Dose: 10 mg Admin: 12/02/17 19:25 Dose: 10 mg Admin: 12/01/17 19:29 Dose: 10 mg Admin: 11/30/17 19:31 Dose: 10 mg Admin: 11/29/17 19:11 Dose: 10 mg Admin: 11/28/17 19:15 Dose: 10 mg Admin: 11/27/17 19:23 Dose: 10 mg Admin: 11/26/17 19:21 Dose: 10 mg Admin: 11/25/17 19:22 Dose: 10 mg Tramadol HCl (Ultram) 50 mg PO Q6H PRN PRN Reason: Pain (severe 7-10) Last Admin: 04/29/18 07:16 Dose: 50 mg Admin: 04/27/18 13:49 Dose: 50 mg Admin: 04/26/18 14:48 Dose: 50 mg Admin: 04/25/18 10:20 Dose: 50 mg Admin: 04/23/18 13:02 Dose: 50 mg Admin: 04/22/18 07:26 Dose: 50 mg Admin: 04/21/18 19:26 Dose: 50 mg Admin: 04/21/18 13:05 Dose: 50 mg Admin: 04/15/18 17:10 Dose: 50 mg Admin: 04/14/18 02:07 Dose: 50 mg Admin: 04/13/18 19:34 Dose: 50 mg Admin: 04/12/18 18:23 Dose: 50 mg Admin: 03/04/18 19:25 Dose: 50 mg Admin: 02/28/18 07:49 Dose: 50 mg Admin: 02/25/18 08:07 Dose: 50 mg Admin: 02/24/18 08:23 Dose: 50 mg Admin: 02/22/18 19:22 Dose: 50 mg Admin: 02/16/18 13:54 Dose: 50 mg Admin: 02/15/18 12:41 Dose: 50 mg Admin: 02/14/18 20:07 Dose: 50 mg Admin: 02/13/18 19:44 Dose: 50 mg Admin: 02/12/18 19:41 Dose: 50 mg Admin: 02/11/18 19:51 Dose: 50 mg Admin: 02/10/18 08:12 Dose: 50 mg Admin: 02/09/18 08:52 Dose: 50 mg Admin: 01/31/18 08:18 Dose: 50 mg Admin: 01/30/18 08:10 Dose: 50 mg Admin: 01/26/18 03:20 Dose: 50 mg Admin: 01/22/18 19:17 Dose: 50 mg Admin: 01/22/18 08:18 Dose: 50 mg Admin: 01/21/18 07:51 Dose: 50 mg Admin: 01/20/18 19:20 Dose: 50 mg Admin: 01/20/18 07:25 Dose: 50 mg Admin: 01/19/18 18:01 Dose: 50 mg Admin: 01/16/18 07:47 Dose: 50 mg Admin: 01/12/18 08:23 Dose: 50 mg Admin: 01/11/18 19:17 Dose: 50 mg Admin: 01/10/18 20:00 Dose: 50 mg Admin: 01/10/18 11:53 Dose: 50 mg Admin: 01/10/18 01:21 Dose: 50 mg Admin: 01/08/18 07:25 Dose: 50 mg Admin: 01/07/18 07:32 Dose: 50 mg Admin: 01/06/18 07:30 Dose: 50 mg Admin: 01/04/18 18:09 Dose: 50 mg Admin: 01/03/18 17:58 Dose: 50 mg Admin: 01/02/18 10:01 Dose: 50 mg Admin: 01/01/18 07:30 Dose: 50 mg Admin: 12/31/17 11:29 Dose: 50 mg Admin: 12/29/17 09:34 Dose: 50 mg Admin: 12/28/17 07:24 Dose: 50 mg Admin: 12/27/17 07:14 Dose: 50 mg Admin: 12/26/17 07:36 Dose: 50 mg Admin: 12/25/17 19:52 Dose: 50 mg Admin: 12/25/17 11:42 Dose: 50 mg Admin: 12/24/17 10:55 Dose: 50 mg Admin: 12/24/17 03:58 Dose: 50 mg Admin: 12/23/17 17:32 Dose: 50 mg Admin: 12/23/17 07:33 Dose: 50 mg Admin: 12/22/17 19:29 Dose: 50 mg Admin: 12/20/17 19:42 Dose: 50 mg Admin: 12/18/17 17:52 Dose: 50 mg Admin: 12/17/17 19:09 Dose: 50 mg Admin: 12/17/17 07:37 Dose: 50 mg Admin: 12/16/17 19:32 Dose: 50 mg Admin: 12/16/17 07:57 Dose: 50 mg Admin: 12/15/17 17:23 Dose: 50 mg Admin: 12/15/17 07:33 Dose: 50 mg Admin: 12/14/17 22:33 Dose: 50 mg Admin: 12/13/17 14:27 Dose: 50 mg Admin: 12/12/17 13:30 Dose: 50 mg Admin: 12/11/17 17:50 Dose: 50 mg Admin: 12/10/17 18:03 Dose: 50 mg Admin: 12/10/17 09:53 Dose: 50 mg Admin: 12/09/17 19:26 Dose: 50 mg Admin: 12/08/17 19:17 Dose: 50 mg Admin: 12/08/17 07:24 Dose: 50 mg Admin: 12/07/17 18:24 Dose: 50 mg Admin: 12/07/17 05:32 Dose: 50 mg Admin: 12/05/17 17:32 Dose: 50 mg Admin: 12/05/17 04:39 Dose: 50 mg Admin: 11/28/17 10:09 Dose: 50 mg Admin: 11/27/17 08:28 Dose: 50 mg Admin: 11/26/17 19:24 Dose: 50 mg Assessment/Plan Comment:: As above. The patient is cleared for complete teeth extraction as above. Extensive precautions were given to the patient, who is in agreement with the treatment plan.
[2018-04-30] MEDS: LEVOTHYROXINE SODIUM 137 MCG PO SCH (19:21)
[2018-04-30] MEDS: buPROPion 100 MG Tab PO SCH (19:22)
[2018-04-30] MEDS: Simvastatin 10 MG Tab PO SCH (19:22)
[2018-04-30] MEDS: Acetaminophen 325 MG Tab PO PRN (19:26)
[2018-05-01] MEDS: Furosemide 20 MG Tab PO SCH (07:10)
[2018-05-01] MEDS: Citalopram 20 MG Tab PO SCH (07:10)
[2018-05-01] MEDS: Metoclopramide 10 MG Tab PO SCH ×2 (07:10→17:20)
[2018-05-01] MEDS: Fludrocortisone 0.1 MG Tab PO SCH ×2 (07:10→19:14)
[2018-05-01] MEDS: Ibuprofen 600 MG Tab PO SCH ×2 (07:10→17:20)
[2018-05-01] MEDS: Albuterol/Ipratropium 3.0-0.5 MG/3 ML Neb Soln NEB SCH ×2 (07:10→19:15)
[2018-05-01] MEDS: Cyanocobalamin (Vitamin B12) 1,000 MCG Tab PO SCH (07:11)
[2018-05-01] MEDS: Potassium Chloride 10% 20 MEQ/15 ML Soln 15 ML UD Cup PO SCH ×3 (07:11→19:14)
[2018-05-01] MEDS: Niacin 500 MG Tab PO SCH ×2 (07:11→17:20)
[2018-05-01] MEDS: Cholecalciferol (Vitamin D3) 25 MCG Tab PO SCH (07:12)
[2018-05-01] MEDS: Chlorhexidine Gluconate 0.12% Oral Rinse 15 ML Cup MUCMEM SCH ×2 (08:20→19:14)
[2018-05-01] MEDS: buPROPion 100 MG Tab PO SCH (19:14)
[2018-05-01] MEDS: LEVOTHYROXINE SODIUM 137 MCG PO SCH (19:14)
[2018-05-01] MEDS: Simvastatin 10 MG Tab PO SCH (19:14)
[2018-05-02] MEDS: Citalopram 20 MG Tab PO SCH (07:47)
[2018-05-02] MEDS: Metoclopramide 10 MG Tab PO SCH ×2 (07:47→17:20)
[2018-05-02] MEDS: Albuterol/Ipratropium 3.0-0.5 MG/3 ML Neb Soln NEB SCH ×2 (07:47→19:18)
[2018-05-02] MEDS: Fludrocortisone 0.1 MG Tab PO SCH ×2 (07:47→19:17)
[2018-05-02] MEDS: Furosemide 20 MG Tab PO SCH (07:47)
[2018-05-02] MEDS: Ibuprofen 600 MG Tab PO SCH ×2 (07:48→17:21)
[2018-05-02] MEDS: Cyanocobalamin (Vitamin B12) 1,000 MCG Tab PO SCH (07:49)
[2018-05-02] MEDS: Cholecalciferol (Vitamin D3) 25 MCG Tab PO SCH (07:49)
[2018-05-02] MEDS: Niacin 500 MG Tab PO SCH ×2 (07:49→17:21)
[2018-05-02] MEDS: Potassium Chloride 10% 20 MEQ/15 ML Soln 15 ML UD Cup PO SCH ×3 (07:52→19:17)
[2018-05-02] MEDS: Chlorhexidine Gluconate 0.12% Oral Rinse 15 ML Cup MUCMEM SCH ×2 (08:01→19:18)
[2018-05-02] MEDS: Simvastatin 10 MG Tab PO SCH (19:17)
[2018-05-02] MEDS: LEVOTHYROXINE SODIUM 137 MCG PO SCH (19:17)
[2018-05-02] MEDS: buPROPion 100 MG Tab PO SCH (19:17)
[2018-05-02] MEDS: Acetaminophen 325 MG Tab PO PRN (23:08)
[2018-05-02] MEDS: traMADol 50 MG Tab PO PRN (23:09)
[2018-05-03] MEDS: Metoclopramide 10 MG Tab PO SCH ×2 (07:17→17:22)
[2018-05-03] MEDS: Furosemide 20 MG Tab PO SCH (07:17)
[2018-05-03] MEDS: Fludrocortisone 0.1 MG Tab PO SCH ×2 (07:17→19:13)
[2018-05-03] MEDS: Citalopram 20 MG Tab PO SCH (07:17)
[2018-05-03] MEDS: Albuterol/Ipratropium 3.0-0.5 MG/3 ML Neb Soln NEB SCH ×2 (07:17→19:13)
[2018-05-03] MEDS: Niacin 500 MG Tab PO SCH ×2 (07:18→17:22)
[2018-05-03] MEDS: Potassium Chloride 10% 20 MEQ/15 ML Soln 15 ML UD Cup PO SCH ×3 (07:18→19:13)
[2018-05-03] MEDS: Ibuprofen 600 MG Tab PO SCH ×2 (07:18→17:22)
[2018-05-03] MEDS: Cyanocobalamin (Vitamin B12) 1,000 MCG Tab PO SCH (07:19)
[2018-05-03] MEDS: Cholecalciferol (Vitamin D3) 25 MCG Tab PO SCH (07:19)
[2018-05-03] MEDS: Chlorhexidine Gluconate 0.12% Oral Rinse 15 ML Cup MUCMEM SCH ×2 (09:17→19:13)
[2018-05-03] MEDS: Simvastatin 10 MG Tab PO SCH (19:13)
[2018-05-03] MEDS: buPROPion 100 MG Tab PO SCH (19:13)
[2018-05-03] MEDS: LEVOTHYROXINE SODIUM 137 MCG PO SCH (19:13)
[2018-05-04] MEDS: Fludrocortisone 0.1 MG Tab PO SCH ×2 (08:00→19:15)
[2018-05-04] MEDS: Ibuprofen 600 MG Tab PO SCH ×2 (08:00→18:13)
[2018-05-04] MEDS: Citalopram 20 MG Tab PO SCH (08:00)
[2018-05-04] MEDS: Albuterol/Ipratropium 3.0-0.5 MG/3 ML Neb Soln NEB SCH ×2 (08:00→19:16)
[2018-05-04] MEDS: Furosemide 20 MG Tab PO SCH (08:00)
[2018-05-04] MEDS: Niacin 500 MG Tab PO SCH ×2 (08:01→18:13)
[2018-05-04] MEDS: Metoclopramide 10 MG Tab PO SCH ×2 (08:01→18:13)
[2018-05-04] MEDS: Chlorhexidine Gluconate 0.12% Oral Rinse 15 ML Cup MUCMEM SCH ×2 (08:01→19:16)
[2018-05-04] MEDS: Cyanocobalamin (Vitamin B12) 1,000 MCG Tab PO SCH (08:02)
[2018-05-04] MEDS: Potassium Chloride 10% 20 MEQ/15 ML Soln 15 ML UD Cup PO SCH ×3 (08:03→19:15)
[2018-05-04] MEDS: Cholecalciferol (Vitamin D3) 25 MCG Tab PO SCH (08:03)
[2018-05-04] MEDS: traMADol 50 MG Tab PO PRN (18:31)
[2018-05-04] MEDS: buPROPion 100 MG Tab PO SCH (19:15)
[2018-05-04] MEDS: Simvastatin 10 MG Tab PO SCH (19:15)
[2018-05-04] MEDS: LEVOTHYROXINE SODIUM 137 MCG PO SCH (19:15)
[2018-05-05] MEDS: Furosemide 20 MG Tab PO SCH (07:14)
[2018-05-05] MEDS: Fludrocortisone 0.1 MG Tab PO SCH ×2 (07:14→19:57)
[2018-05-05] MEDS: Citalopram 20 MG Tab PO SCH (07:14)
[2018-05-05] MEDS: Albuterol/Ipratropium 3.0-0.5 MG/3 ML Neb Soln NEB SCH ×2 (07:14→19:55)
[2018-05-05] MEDS: Metoclopramide 10 MG Tab PO SCH ×2 (07:14→18:31)
[2018-05-05] MEDS: Niacin 500 MG Tab PO SCH ×2 (07:15→18:31)
[2018-05-05] MEDS: Ibuprofen 600 MG Tab PO SCH ×2 (07:15→18:31)
[2018-05-05] MEDS: Potassium Chloride 10% 20 MEQ/15 ML Soln 15 ML UD Cup PO SCH ×3 (07:15→19:59)
[2018-05-05] MEDS: Cholecalciferol (Vitamin D3) 25 MCG Tab PO SCH (07:16)
[2018-05-05] MEDS: Cyanocobalamin (Vitamin B12) 1,000 MCG Tab PO SCH (07:16)
[2018-05-05] MEDS: Chlorhexidine Gluconate 0.12% Oral Rinse 15 ML Cup MUCMEM SCH ×2 (08:18→19:59)
[2018-05-05] MEDS: LEVOTHYROXINE SODIUM 137 MCG PO SCH (19:58)
[2018-05-05] MEDS: buPROPion 100 MG Tab PO SCH (20:00)
[2018-05-05] MEDS: Simvastatin 10 MG Tab PO SCH (20:00)
[2018-05-05] MEDS: traMADol 50 MG Tab PO PRN (20:21)
[2018-05-05] MEDS: Acetaminophen 325 MG Tab PO PRN (20:23)
[2018-05-06] MEDS: Ibuprofen 600 MG Tab PO SCH ×2 (07:16→18:09)
[2018-05-06] MEDS: Furosemide 20 MG Tab PO SCH (07:18)
[2018-05-06] MEDS: Citalopram 20 MG Tab PO SCH (07:19)
[2018-05-06] MEDS: Metoclopramide 10 MG Tab PO SCH ×2 (07:19→18:09)
[2018-05-06] MEDS: Fludrocortisone 0.1 MG Tab PO SCH ×2 (07:19→19:13)
[2018-05-06] MEDS: Niacin 500 MG Tab PO SCH ×2 (07:20→18:09)
[2018-05-06] MEDS: Cholecalciferol (Vitamin D3) 25 MCG Tab PO SCH (07:22)
[2018-05-06] MEDS: Cyanocobalamin (Vitamin B12) 1,000 MCG Tab PO SCH (07:22)
[2018-05-06] MEDS: traMADol 50 MG Tab PO PRN ×2 (07:23→19:15)
[2018-05-06] MEDS: Potassium Chloride 10% 20 MEQ/15 ML Soln 15 ML UD Cup PO SCH ×3 (07:26→19:14)
[2018-05-06] MEDS: Albuterol/Ipratropium 3.0-0.5 MG/3 ML Neb Soln NEB SCH ×2 (07:32→19:15)
[2018-05-06] MEDS: Chlorhexidine Gluconate 0.12% Oral Rinse 15 ML Cup MUCMEM SCH ×2 (08:43→19:15)
[2018-05-06] MEDS: Simvastatin 10 MG Tab PO SCH (19:13)
[2018-05-06] MEDS: LEVOTHYROXINE SODIUM 137 MCG PO SCH (19:13)
[2018-05-06] MEDS: buPROPion 100 MG Tab PO SCH (19:13)
[2018-05-06] MEDS: Acetaminophen 325 MG Tab PO PRN (23:20)
[2018-05-07] MEDS: traMADol 50 MG Tab PO PRN ×3 (05:26→19:25)
[2018-05-07] MEDS: Acetaminophen 325 MG Tab PO PRN ×3 (05:27→19:24)
[2018-05-07] MEDS: Metoclopramide 10 MG Tab PO SCH ×2 (07:55→17:34)
[2018-05-07] MEDS: Albuterol/Ipratropium 3.0-0.5 MG/3 ML Neb Soln NEB SCH ×2 (07:55→19:21)
[2018-05-07] MEDS: Furosemide 20 MG Tab PO SCH (07:55)
[2018-05-07] MEDS: Citalopram 20 MG Tab PO SCH (07:55)
[2018-05-07] MEDS: Fludrocortisone 0.1 MG Tab PO SCH ×2 (07:55→19:21)
[2018-05-07] MEDS: Ibuprofen 600 MG Tab PO SCH ×2 (07:56→17:34)
[2018-05-07] MEDS: Niacin 500 MG Tab PO SCH ×2 (07:56→17:34)
[2018-05-07] MEDS: Potassium Chloride 10% 20 MEQ/15 ML Soln 15 ML UD Cup PO SCH ×3 (07:57→19:22)
[2018-05-07] MEDS: Cyanocobalamin (Vitamin B12) 1,000 MCG Tab PO SCH (07:58)
[2018-05-07] MEDS: Cholecalciferol (Vitamin D3) 25 MCG Tab PO SCH (07:58)
[2018-05-07] MEDS: Chlorhexidine Gluconate 0.12% Oral Rinse 15 ML Cup MUCMEM SCH ×2 (07:59→19:22)
[2018-05-07] MEDS: LEVOTHYROXINE SODIUM 137 MCG PO SCH (19:21)
[2018-05-07] MEDS: Simvastatin 10 MG Tab PO SCH (19:23)
[2018-05-07] MEDS: buPROPion 100 MG Tab PO SCH (19:23)
[2018-05-08] MEDS: Acetaminophen 325 MG Tab PO PRN ×3 (01:37→19:47)
[2018-05-08] MEDS: Furosemide 20 MG Tab PO SCH (07:46)
[2018-05-08] MEDS: Metoclopramide 10 MG Tab PO SCH ×2 (07:46→17:27)
[2018-05-08] MEDS: Albuterol/Ipratropium 3.0-0.5 MG/3 ML Neb Soln NEB SCH ×2 (07:46→19:42)
[2018-05-08] MEDS: Citalopram 20 MG Tab PO SCH (07:46)
[2018-05-08] MEDS: Fludrocortisone 0.1 MG Tab PO SCH ×2 (07:46→19:42)
[2018-05-08] MEDS: Ibuprofen 600 MG Tab PO SCH ×2 (07:47→17:27)
[2018-05-08] MEDS: Niacin 500 MG Tab PO SCH ×2 (07:49→17:28)
[2018-05-08] MEDS: Cholecalciferol (Vitamin D3) 25 MCG Tab PO SCH (07:50)
[2018-05-08] MEDS: Cyanocobalamin (Vitamin B12) 1,000 MCG Tab PO SCH (07:50)
[2018-05-08] MEDS: Potassium Chloride 10% 20 MEQ/15 ML Soln 15 ML UD Cup PO SCH ×3 (07:50→19:43)
[2018-05-08] MEDS: Chlorhexidine Gluconate 0.12% Oral Rinse 15 ML Cup MUCMEM SCH ×2 (08:00→19:43)
[2018-05-08] MEDS: traMADol 50 MG Tab PO PRN ×2 (13:59→20:06)
[2018-05-08] MEDS: LEVOTHYROXINE SODIUM 137 MCG PO SCH (19:43)
[2018-05-08] MEDS: buPROPion 100 MG Tab PO SCH (19:44)
[2018-05-08] MEDS: Simvastatin 10 MG Tab PO SCH (19:44)
[2018-05-09] MEDS: Metoclopramide 10 MG Tab PO SCH ×2 (07:59→17:18)
[2018-05-09] MEDS: Citalopram 20 MG Tab PO SCH (07:59)
[2018-05-09] MEDS: Albuterol/Ipratropium 3.0-0.5 MG/3 ML Neb Soln NEB SCH ×2 (08:00→19:25)
[2018-05-09] MEDS: Fludrocortisone 0.1 MG Tab PO SCH ×2 (08:00→19:25)
[2018-05-09] MEDS: Furosemide 20 MG Tab PO SCH (08:00)
[2018-05-09] MEDS: Ibuprofen 600 MG Tab PO SCH ×2 (08:00→17:18)
[2018-05-09] MEDS: Niacin 500 MG Tab PO SCH ×2 (08:02→17:19)
[2018-05-09] MEDS: Potassium Chloride 10% 20 MEQ/15 ML Soln 15 ML UD Cup PO SCH ×3 (08:02→19:26)
[2018-05-09] MEDS: Cholecalciferol (Vitamin D3) 25 MCG Tab PO SCH (08:03)
[2018-05-09] MEDS: Cyanocobalamin (Vitamin B12) 1,000 MCG Tab PO SCH (08:03)
[2018-05-09] MEDS: Chlorhexidine Gluconate 0.12% Oral Rinse 15 ML Cup MUCMEM SCH ×2 (08:20→19:25)
[2018-05-09] MEDS: Acetaminophen 325 MG Tab PO PRN ×2 (15:22→19:29)
[2018-05-09] MEDS: traMADol 50 MG Tab PO PRN (15:24)
[2018-05-09] MEDS: LEVOTHYROXINE SODIUM 137 MCG PO SCH (19:25)
[2018-05-09] MEDS: Simvastatin 10 MG Tab PO SCH (19:26)
[2018-05-09] MEDS: buPROPion 100 MG Tab PO SCH (19:26)
[2018-05-09] MEDS: Clotrimazole 1% Crm 30 GM Tube TOP PRN (20:07)
[2018-05-10] MEDS: Fludrocortisone 0.1 MG Tab PO SCH ×2 (07:53→19:30)
[2018-05-10] MEDS: Metoclopramide 10 MG Tab PO SCH ×2 (07:53→17:25)
[2018-05-10] MEDS: Albuterol/Ipratropium 3.0-0.5 MG/3 ML Neb Soln NEB SCH ×2 (07:53→19:30)
[2018-05-10] MEDS: Citalopram 20 MG Tab PO SCH (07:53)
[2018-05-10] MEDS: Ibuprofen 600 MG Tab PO SCH ×2 (07:53→17:26)
[2018-05-10] MEDS: Furosemide 20 MG Tab PO SCH (07:53)
[2018-05-10] MEDS: Niacin 500 MG Tab PO SCH ×2 (07:54→17:25)
[2018-05-10] MEDS: Cyanocobalamin (Vitamin B12) 1,000 MCG Tab PO SCH (07:54)
[2018-05-10] MEDS: Potassium Chloride 10% 20 MEQ/15 ML Soln 15 ML UD Cup PO SCH ×3 (07:55→19:31)
[2018-05-10] MEDS: Cholecalciferol (Vitamin D3) 25 MCG Tab PO SCH (07:55)
[2018-05-10] MEDS: Clotrimazole 1% Crm 30 GM Tube TOP PRN ×2 (08:10→20:10)
[2018-05-10] MEDS: Chlorhexidine Gluconate 0.12% Oral Rinse 15 ML Cup MUCMEM SCH ×3 (08:12→19:31)
[2018-05-10] MEDS: Acetaminophen 325 MG Tab PO PRN ×2 (11:04→19:32)
[2018-05-10] MEDS: traMADol 50 MG Tab PO PRN (11:05)
[2018-05-10] MEDS: LEVOTHYROXINE SODIUM 137 MCG PO SCH (19:30)
[2018-05-10] MEDS: Simvastatin 10 MG Tab PO SCH (19:31)
[2018-05-10] MEDS: buPROPion 100 MG Tab PO SCH (19:31)
[2018-05-11] MEDS: Ibuprofen 600 MG Tab PO PRN (02:05)
[2018-05-11] MEDS: Metoclopramide 10 MG Tab PO SCH ×2 (07:21→17:17)
[2018-05-11] MEDS: Fludrocortisone 0.1 MG Tab PO SCH ×2 (07:21→19:32)
[2018-05-11] MEDS: Albuterol/Ipratropium 3.0-0.5 MG/3 ML Neb Soln NEB SCH ×2 (07:21→19:31)
[2018-05-11] MEDS: Furosemide 20 MG Tab PO SCH (07:21)
[2018-05-11] MEDS: Ibuprofen 600 MG Tab PO SCH ×2 (07:21→17:17)
[2018-05-11] MEDS: Citalopram 20 MG Tab PO SCH (07:21)
[2018-05-11] MEDS: Niacin 500 MG Tab PO SCH ×2 (07:23→17:18)
[2018-05-11] MEDS: Cyanocobalamin (Vitamin B12) 1,000 MCG Tab PO SCH (07:23)
[2018-05-11] MEDS: Potassium Chloride 10% 20 MEQ/15 ML Soln 15 ML UD Cup PO SCH ×3 (07:23→19:34)
[2018-05-11] MEDS: Cholecalciferol (Vitamin D3) 25 MCG Tab PO SCH (07:24)
[2018-05-11] MEDS: Acetaminophen 325 MG Tab PO PRN ×2 (07:24→13:36)
[2018-05-11] MEDS: traMADol 50 MG Tab PO PRN ×2 (07:25→13:37)
[2018-05-11] MEDS: Chlorhexidine Gluconate 0.12% Oral Rinse 15 ML Cup MUCMEM SCH ×2 (08:18→19:32)
[2018-05-11] MEDS: LEVOTHYROXINE SODIUM 137 MCG PO SCH (19:32)
[2018-05-11] MEDS: buPROPion 100 MG Tab PO SCH (19:34)
[2018-05-11] MEDS: Simvastatin 10 MG Tab PO SCH (19:35)
[2018-05-11] MEDS: Clotrimazole 1% Crm 30 GM Tube TOP PRN (19:36)
[2018-05-12] MEDS: Acetaminophen 325 MG Tab PO PRN ×2 (03:18→13:03)
[2018-05-12] MEDS: traMADol 50 MG Tab PO PRN ×2 (03:26→13:04)
[2018-05-12] MEDS: Albuterol/Ipratropium 3.0-0.5 MG/3 ML Neb Soln NEB SCH ×2 (07:28→19:18)
[2018-05-12] MEDS: Citalopram 20 MG Tab PO SCH (07:28)
[2018-05-12] MEDS: Fludrocortisone 0.1 MG Tab PO SCH ×2 (07:28→19:18)
[2018-05-12] MEDS: Metoclopramide 10 MG Tab PO SCH ×2 (07:28→17:21)
[2018-05-12] MEDS: Furosemide 20 MG Tab PO SCH (07:29)
[2018-05-12] MEDS: Ibuprofen 600 MG Tab PO SCH ×2 (07:29→17:21)
[2018-05-12] MEDS: Niacin 500 MG Tab PO SCH ×2 (07:30→17:23)
[2018-05-12] MEDS: Cyanocobalamin (Vitamin B12) 1,000 MCG Tab PO SCH (07:30)
[2018-05-12] MEDS: Potassium Chloride 10% 20 MEQ/15 ML Soln 15 ML UD Cup PO SCH ×3 (07:30→19:19)
[2018-05-12] MEDS: Cholecalciferol (Vitamin D3) 25 MCG Tab PO SCH (07:31)
[2018-05-12] MEDS: Chlorhexidine Gluconate 0.12% Oral Rinse 15 ML Cup MUCMEM SCH (08:41)
[2018-05-12] MEDS: metroNIDAZOLE 500 MG Tab PO SCH (17:29)
[2018-05-12] MEDS: LEVOTHYROXINE SODIUM 137 MCG PO SCH (19:18)
[2018-05-12] MEDS: Nystatin Susp 100,000 Unit/ML 5 ML UD Cup PO SCH (19:19)
[2018-05-12] MEDS: Simvastatin 10 MG Tab PO SCH (19:19)
[2018-05-12] MEDS: buPROPion 100 MG Tab PO SCH (19:19)
[2018-05-12] MEDS: Clotrimazole 1% Crm 30 GM Tube TOP PRN (19:20)
[2018-05-12] MEDS: Ibuprofen 600 MG Tab PO PRN (19:21)
[2018-05-13] MEDS: Acetaminophen 325 MG Tab PO PRN ×2 (02:36→07:23)
[2018-05-13] MEDS: Metoclopramide 10 MG Tab PO SCH ×2 (07:19→17:11)
[2018-05-13] MEDS: Albuterol/Ipratropium 3.0-0.5 MG/3 ML Neb Soln NEB SCH ×2 (07:19→19:36)
[2018-05-13] MEDS: Citalopram 20 MG Tab PO SCH (07:19)
[2018-05-13] MEDS: Furosemide 20 MG Tab PO SCH (07:20)
[2018-05-13] MEDS: Fludrocortisone 0.1 MG Tab PO SCH ×2 (07:20→19:36)
[2018-05-13] MEDS: Ibuprofen 600 MG Tab PO SCH ×2 (07:20→17:12)
[2018-05-13] MEDS: metroNIDAZOLE 500 MG Tab PO SCH ×3 (07:20→17:11)
[2018-05-13] MEDS: Niacin 500 MG Tab PO SCH ×2 (07:21→17:12)
[2018-05-13] MEDS: Nystatin Susp 100,000 Unit/ML 5 ML UD Cup PO SCH ×4 (07:21→19:37)
[2018-05-13] MEDS: Cyanocobalamin (Vitamin B12) 1,000 MCG Tab PO SCH (07:22)
[2018-05-13] MEDS: Potassium Chloride 10% 20 MEQ/15 ML Soln 15 ML UD Cup PO SCH ×3 (07:22→19:38)
[2018-05-13] MEDS: Cholecalciferol (Vitamin D3) 25 MCG Tab PO SCH (07:23)
[2018-05-13] MEDS: traMADol 50 MG Tab PO PRN (07:24)
[2018-05-13] MEDS: Clotrimazole 1% Crm 30 GM Tube TOP PRN (07:25)
[2018-05-13] MEDS: LEVOTHYROXINE SODIUM 137 MCG PO SCH (19:37)
[2018-05-13] MEDS: buPROPion 100 MG Tab PO SCH (19:38)
[2018-05-13] MEDS: Simvastatin 10 MG Tab PO SCH (19:39)
[2018-05-14] MEDS: Ibuprofen 600 MG Tab PO SCH ×2 (07:57→17:38)
[2018-05-14] MEDS: Furosemide 20 MG Tab PO SCH (07:57)
[2018-05-14] MEDS: Fludrocortisone 0.1 MG Tab PO SCH ×2 (07:57→19:32)
[2018-05-14] MEDS: Metoclopramide 10 MG Tab PO SCH ×2 (07:57→17:38)
[2018-05-14] MEDS: metroNIDAZOLE 500 MG Tab PO SCH ×3 (07:57→17:38)
[2018-05-14] MEDS: Citalopram 20 MG Tab PO SCH (07:57)
[2018-05-14] MEDS: Albuterol/Ipratropium 3.0-0.5 MG/3 ML Neb Soln NEB SCH ×2 (07:57→19:32)
[2018-05-14] MEDS: Niacin 500 MG Tab PO SCH ×2 (07:58→17:39)
[2018-05-14] MEDS: Nystatin Susp 100,000 Unit/ML 5 ML UD Cup PO SCH ×4 (07:58→19:33)
[2018-05-14] MEDS: Cholecalciferol (Vitamin D3) 25 MCG Tab PO SCH (07:59)
[2018-05-14] MEDS: Cyanocobalamin (Vitamin B12) 1,000 MCG Tab PO SCH (07:59)
[2018-05-14] MEDS: Potassium Chloride 10% 20 MEQ/15 ML Soln 15 ML UD Cup PO SCH ×3 (07:59→19:33)
[2018-05-14] MEDS: Clotrimazole 1% Crm 30 GM Tube TOP PRN (08:12)
[2018-05-14] MEDS: traMADol 50 MG Tab PO PRN ×2 (08:45→19:37)
[2018-05-14] MEDS: LEVOTHYROXINE SODIUM 137 MCG PO SCH (19:32)
[2018-05-14] MEDS: buPROPion 100 MG Tab PO SCH (19:33)
[2018-05-14] MEDS: Simvastatin 10 MG Tab PO SCH (19:33)
[2018-05-15] MEDS: Albuterol/Ipratropium 3.0-0.5 MG/3 ML Neb Soln NEB SCH ×2 (07:32→19:29)
[2018-05-15] MEDS: Metoclopramide 10 MG Tab PO SCH ×2 (07:32→17:23)
[2018-05-15] MEDS: Fludrocortisone 0.1 MG Tab PO SCH ×2 (07:32→19:29)
[2018-05-15] MEDS: Furosemide 20 MG Tab PO SCH (07:32)
[2018-05-15] MEDS: metroNIDAZOLE 500 MG Tab PO SCH ×3 (07:32→17:23)
[2018-05-15] MEDS: Citalopram 20 MG Tab PO SCH (07:32)
[2018-05-15] MEDS: Niacin 500 MG Tab PO SCH ×2 (07:33→17:24)
[2018-05-15] MEDS: Ibuprofen 600 MG Tab PO SCH ×2 (07:33→17:23)
[2018-05-15] MEDS: Cyanocobalamin (Vitamin B12) 1,000 MCG Tab PO SCH (07:33)
[2018-05-15] MEDS: Nystatin Susp 100,000 Unit/ML 5 ML UD Cup PO SCH ×4 (07:33→19:36)
[2018-05-15] MEDS: Potassium Chloride 10% 20 MEQ/15 ML Soln 15 ML UD Cup PO SCH ×3 (07:34→19:31)
[2018-05-15] MEDS: Cholecalciferol (Vitamin D3) 25 MCG Tab PO SCH (07:34)
[2018-05-15] MEDS: Clotrimazole 1% Crm 30 GM Tube TOP PRN (07:35)
[2018-05-15] MEDS: Simvastatin 10 MG Tab PO SCH (19:29)
[2018-05-15] MEDS: buPROPion 100 MG Tab PO SCH (19:29)
[2018-05-15] MEDS: LEVOTHYROXINE SODIUM 137 MCG PO SCH (19:29)
[2018-05-16] MEDS: Ibuprofen 600 MG Tab PO PRN (01:43)
[2018-05-16] MEDS: Citalopram 20 MG Tab PO SCH (08:04)
[2018-05-16] MEDS: Albuterol/Ipratropium 3.0-0.5 MG/3 ML Neb Soln NEB SCH ×2 (08:04→19:10)
[2018-05-16] MEDS: Metoclopramide 10 MG Tab PO SCH ×2 (08:04→18:38)
[2018-05-16] MEDS: Ibuprofen 600 MG Tab PO SCH ×2 (08:05→18:38)
[2018-05-16] MEDS: Fludrocortisone 0.1 MG Tab PO SCH ×2 (08:05→19:10)
[2018-05-16] MEDS: metroNIDAZOLE 500 MG Tab PO SCH ×3 (08:05→18:38)
[2018-05-16] MEDS: Furosemide 20 MG Tab PO SCH (08:05)
[2018-05-16] MEDS: Nystatin Susp 100,000 Unit/ML 5 ML UD Cup PO SCH ×4 (08:05→19:11)
[2018-05-16] MEDS: Niacin 500 MG Tab PO SCH ×2 (08:06→18:38)
[2018-05-16] MEDS: Potassium Chloride 10% 20 MEQ/15 ML Soln 15 ML UD Cup PO SCH ×3 (08:06→19:12)
[2018-05-16] MEDS: Cyanocobalamin (Vitamin B12) 1,000 MCG Tab PO SCH (08:06)
[2018-05-16] MEDS: Cholecalciferol (Vitamin D3) 25 MCG Tab PO SCH (08:07)
[2018-05-16] MEDS: Acetaminophen 325 MG Tab PO PRN (10:22)
[2018-05-16] MEDS: LEVOTHYROXINE SODIUM 137 MCG PO SCH (19:10)
[2018-05-16] MEDS: buPROPion 100 MG Tab PO SCH (19:11)
[2018-05-16] MEDS: Simvastatin 10 MG Tab PO SCH (19:11)
[2018-05-17] MEDS: Fludrocortisone 0.1 MG Tab PO SCH ×2 (08:08→19:10)
[2018-05-17] MEDS: metroNIDAZOLE 500 MG Tab PO SCH ×3 (08:08→17:17)
[2018-05-17] MEDS: Albuterol/Ipratropium 3.0-0.5 MG/3 ML Neb Soln NEB SCH ×2 (08:08→19:12)
[2018-05-17] MEDS: Citalopram 20 MG Tab PO SCH (08:08)
[2018-05-17] MEDS: Metoclopramide 10 MG Tab PO SCH ×2 (08:08→17:17)
[2018-05-17] MEDS: Furosemide 20 MG Tab PO SCH (08:08)
[2018-05-17] MEDS: Ibuprofen 600 MG Tab PO SCH ×2 (08:08→17:17)
[2018-05-17] MEDS: Niacin 500 MG Tab PO SCH ×2 (08:09→17:18)
[2018-05-17] MEDS: Nystatin Susp 100,000 Unit/ML 5 ML UD Cup PO SCH ×4 (08:09→19:11)
[2018-05-17] MEDS: Cholecalciferol (Vitamin D3) 25 MCG Tab PO SCH (08:10)
[2018-05-17] MEDS: Potassium Chloride 10% 20 MEQ/15 ML Soln 15 ML UD Cup PO SCH ×3 (08:10→19:11)
[2018-05-17] MEDS: Cyanocobalamin (Vitamin B12) 1,000 MCG Tab PO SCH (08:10)
[2018-05-17] MEDS: buPROPion 100 MG Tab PO SCH (19:10)
[2018-05-17] MEDS: LEVOTHYROXINE SODIUM 137 MCG PO SCH (19:10)
[2018-05-17] MEDS: Simvastatin 10 MG Tab PO SCH (19:10)
[2018-05-18] MEDS: Fludrocortisone 0.1 MG Tab PO SCH ×2 (07:45→19:48)
[2018-05-18] MEDS: Albuterol/Ipratropium 3.0-0.5 MG/3 ML Neb Soln NEB SCH ×2 (07:45→19:48)
[2018-05-18] MEDS: Metoclopramide 10 MG Tab PO SCH ×2 (07:45→17:34)
[2018-05-18] MEDS: metroNIDAZOLE 500 MG Tab PO SCH ×3 (07:45→17:34)
[2018-05-18] MEDS: Furosemide 20 MG Tab PO SCH (07:45)
[2018-05-18] MEDS: Ibuprofen 600 MG Tab PO SCH ×2 (07:45→17:34)
[2018-05-18] MEDS: Citalopram 20 MG Tab PO SCH (07:45)
[2018-05-18] MEDS: Nystatin Susp 100,000 Unit/ML 5 ML UD Cup PO SCH ×4 (07:46→19:49)
[2018-05-18] MEDS: Potassium Chloride 10% 20 MEQ/15 ML Soln 15 ML UD Cup PO SCH ×3 (07:47→19:49)
[2018-05-18] MEDS: Cyanocobalamin (Vitamin B12) 1,000 MCG Tab PO SCH (07:47)
[2018-05-18] MEDS: Niacin 500 MG Tab PO SCH ×2 (07:47→17:35)
[2018-05-18] MEDS: Cholecalciferol (Vitamin D3) 25 MCG Tab PO SCH (07:48)
[2018-05-18] MEDS: traMADol 50 MG Tab PO PRN (19:47)
[2018-05-18] MEDS: LEVOTHYROXINE SODIUM 137 MCG PO SCH (19:48)
[2018-05-18] MEDS: buPROPion 100 MG Tab PO SCH (19:49)
[2018-05-18] MEDS: Simvastatin 10 MG Tab PO SCH (19:50)
[2018-05-19] MEDS: metroNIDAZOLE 500 MG Tab PO SCH ×3 (08:02→17:49)
[2018-05-19] MEDS: Citalopram 20 MG Tab PO SCH (08:02)
[2018-05-19] MEDS: Albuterol/Ipratropium 3.0-0.5 MG/3 ML Neb Soln NEB SCH ×2 (08:02→19:40)
[2018-05-19] MEDS: Metoclopramide 10 MG Tab PO SCH ×2 (08:02→17:49)
[2018-05-19] MEDS: Fludrocortisone 0.1 MG Tab PO SCH ×2 (08:02→19:40)
[2018-05-19] MEDS: Nystatin Susp 100,000 Unit/ML 5 ML UD Cup PO SCH ×3 (08:03→16:00)
[2018-05-19] MEDS: Ibuprofen 600 MG Tab PO SCH ×2 (08:03→17:49)
[2018-05-19] MEDS: Furosemide 20 MG Tab PO SCH (08:03)
[2018-05-19] MEDS: Niacin 500 MG Tab PO SCH ×2 (08:04→17:49)
[2018-05-19] MEDS: Cyanocobalamin (Vitamin B12) 1,000 MCG Tab PO SCH (08:04)
[2018-05-19] MEDS: Cholecalciferol (Vitamin D3) 25 MCG Tab PO SCH (08:05)
[2018-05-19] MEDS: Potassium Chloride 10% 20 MEQ/15 ML Soln 15 ML UD Cup PO SCH ×3 (08:05→19:42)
[2018-05-19] MEDS: LEVOTHYROXINE SODIUM 137 MCG PO SCH (19:41)
[2018-05-19] MEDS: Simvastatin 10 MG Tab PO SCH (19:43)
[2018-05-19] MEDS: buPROPion 100 MG Tab PO SCH (19:43)
--- NOTE | 2018-05-19 20:13 | PCM.SN ---
- Free Text/Narrative Note: Recent mammogram was overall normal with nonspecific findings of the right breast. Repeat right-sided mammogram and possible additional right breast ultrasound as per recommendations from the radiologist has been scheduled for .
[2018-05-20] MEDS: Metoclopramide 10 MG Tab PO SCH ×2 (07:40→17:59)
[2018-05-20] MEDS: Furosemide 20 MG Tab PO SCH (07:40)
[2018-05-20] MEDS: Citalopram 20 MG Tab PO SCH (07:40)
[2018-05-20] MEDS: Ibuprofen 600 MG Tab PO SCH ×2 (07:40→18:00)
[2018-05-20] MEDS: Albuterol/Ipratropium 3.0-0.5 MG/3 ML Neb Soln NEB SCH ×2 (07:40→19:09)
[2018-05-20] MEDS: metroNIDAZOLE 500 MG Tab PO SCH ×3 (07:40→17:59)
[2018-05-20] MEDS: Fludrocortisone 0.1 MG Tab PO SCH ×2 (07:40→19:08)
[2018-05-20] MEDS: Niacin 500 MG Tab PO SCH ×2 (07:41→18:00)
[2018-05-20] MEDS: Cyanocobalamin (Vitamin B12) 1,000 MCG Tab PO SCH (07:41)
[2018-05-20] MEDS: Cholecalciferol (Vitamin D3) 25 MCG Tab PO SCH (07:41)
[2018-05-20] MEDS: Potassium Chloride 10% 20 MEQ/15 ML Soln 15 ML UD Cup PO SCH ×3 (07:42→19:09)
[2018-05-20] MEDS: LEVOTHYROXINE SODIUM 137 MCG PO SCH (19:08)
[2018-05-20] MEDS: buPROPion 100 MG Tab PO SCH (19:08)
[2018-05-20] MEDS: Simvastatin 10 MG Tab PO SCH (19:08)
[2018-05-21] MEDS: Metoclopramide 10 MG Tab PO SCH ×2 (08:13→18:01)
[2018-05-21] MEDS: Albuterol/Ipratropium 3.0-0.5 MG/3 ML Neb Soln NEB SCH ×2 (08:14→19:29)
[2018-05-21] MEDS: Fludrocortisone 0.1 MG Tab PO SCH ×2 (08:14→19:29)
[2018-05-21] MEDS: Furosemide 20 MG Tab PO SCH (08:14)
[2018-05-21] MEDS: Citalopram 20 MG Tab PO SCH (08:14)
[2018-05-21] MEDS: metroNIDAZOLE 500 MG Tab PO SCH ×3 (08:14→18:02)
[2018-05-21] MEDS: Cyanocobalamin (Vitamin B12) 1,000 MCG Tab PO SCH (08:17)
[2018-05-21] MEDS: Niacin 500 MG Tab PO SCH ×2 (08:17→18:03)
[2018-05-21] MEDS: Cholecalciferol (Vitamin D3) 25 MCG Tab PO SCH (08:17)
[2018-05-21] MEDS: Potassium Chloride 10% 20 MEQ/15 ML Soln 15 ML UD Cup PO SCH ×3 (08:18→19:30)
[2018-05-21] MEDS: Ibuprofen 600 MG Tab PO SCH ×2 (08:27→18:02)
[2018-05-21] MEDS: LEVOTHYROXINE SODIUM 137 MCG PO SCH (19:29)
[2018-05-21] MEDS: buPROPion 100 MG Tab PO SCH (19:29)
[2018-05-21] MEDS: Simvastatin 10 MG Tab PO SCH (19:29)
[2018-05-22] MEDS: Metoclopramide 10 MG Tab PO SCH ×2 (08:13→17:48)
[2018-05-22] MEDS: metroNIDAZOLE 500 MG Tab PO SCH ×3 (08:14→17:55)
[2018-05-22] MEDS: Furosemide 20 MG Tab PO SCH (08:14)
[2018-05-22] MEDS: Citalopram 20 MG Tab PO SCH (08:14)
[2018-05-22] MEDS: Fludrocortisone 0.1 MG Tab PO SCH ×2 (08:14→19:25)
[2018-05-22] MEDS: Ibuprofen 600 MG Tab PO SCH ×2 (08:14→17:48)
[2018-05-22] MEDS: Albuterol/Ipratropium 3.0-0.5 MG/3 ML Neb Soln NEB SCH ×2 (08:14→19:26)
[2018-05-22] MEDS: Cholecalciferol (Vitamin D3) 25 MCG Tab PO SCH (08:15)
[2018-05-22] MEDS: Cyanocobalamin (Vitamin B12) 1,000 MCG Tab PO SCH (08:15)
[2018-05-22] MEDS: Niacin 500 MG Tab PO SCH ×2 (08:15→17:49)
[2018-05-22] MEDS: Potassium Chloride 10% 20 MEQ/15 ML Soln 15 ML UD Cup PO SCH ×3 (08:16→19:25)
[2018-05-22] MEDS: traMADol 50 MG Tab PO PRN (10:09)
[2018-05-22] MEDS: LEVOTHYROXINE SODIUM 137 MCG PO SCH (19:25)
[2018-05-22] MEDS: Simvastatin 10 MG Tab PO SCH (19:25)
[2018-05-22] MEDS: buPROPion 100 MG Tab PO SCH (19:25)
[2018-05-23] MEDS: Metoclopramide 10 MG Tab PO SCH ×2 (07:17→17:49)
[2018-05-23] MEDS: Citalopram 20 MG Tab PO SCH (07:17)
[2018-05-23] MEDS: Albuterol/Ipratropium 3.0-0.5 MG/3 ML Neb Soln NEB SCH ×2 (07:17→19:25)
[2018-05-23] MEDS: Potassium Chloride 10% 20 MEQ/15 ML Soln 15 ML UD Cup PO SCH ×3 (07:17→19:24)
[2018-05-23] MEDS: Furosemide 20 MG Tab PO SCH (07:18)
[2018-05-23] MEDS: Niacin 500 MG Tab PO SCH ×2 (07:18→17:49)
[2018-05-23] MEDS: Cyanocobalamin (Vitamin B12) 1,000 MCG Tab PO SCH (07:18)
[2018-05-23] MEDS: Fludrocortisone 0.1 MG Tab PO SCH ×2 (07:18→19:24)
[2018-05-23] MEDS: Ibuprofen 600 MG Tab PO SCH ×2 (07:18→17:49)
[2018-05-23] MEDS: Cholecalciferol (Vitamin D3) 25 MCG Tab PO SCH (07:19)
[2018-05-23] MEDS: LEVOTHYROXINE SODIUM 137 MCG PO SCH (19:24)
[2018-05-23] MEDS: buPROPion 100 MG Tab PO SCH (19:24)
[2018-05-23] MEDS: Simvastatin 10 MG Tab PO SCH (19:24)
[2018-05-24] MEDS: Fludrocortisone 0.1 MG Tab PO SCH ×2 (08:20→19:32)
[2018-05-24] MEDS: Metoclopramide 10 MG Tab PO SCH ×2 (08:20→17:57)
[2018-05-24] MEDS: Albuterol/Ipratropium 3.0-0.5 MG/3 ML Neb Soln NEB SCH ×2 (08:20→19:33)
[2018-05-24] MEDS: Citalopram 20 MG Tab PO SCH (08:20)
[2018-05-24] MEDS: Furosemide 20 MG Tab PO SCH (08:21)
[2018-05-24] MEDS: Ibuprofen 600 MG Tab PO SCH ×2 (08:21→17:58)
[2018-05-24] MEDS: Potassium Chloride 10% 20 MEQ/15 ML Soln 15 ML UD Cup PO SCH ×3 (08:22→19:32)
[2018-05-24] MEDS: Niacin 500 MG Tab PO SCH ×2 (08:22→17:59)
[2018-05-24] MEDS: Cholecalciferol (Vitamin D3) 25 MCG Tab PO SCH (08:23)
[2018-05-24] MEDS: Cyanocobalamin (Vitamin B12) 1,000 MCG Tab PO SCH (08:23)
[2018-05-24] MEDS: traMADol 50 MG Tab PO PRN (15:12)
[2018-05-24] MEDS: Simvastatin 10 MG Tab PO SCH (19:32)
[2018-05-24] MEDS: LEVOTHYROXINE SODIUM 137 MCG PO SCH (19:32)
[2018-05-24] MEDS: buPROPion 100 MG Tab PO SCH (19:32)
[2018-05-25] MEDS: Fludrocortisone 0.1 MG Tab PO SCH ×2 (08:05→19:23)
[2018-05-25] MEDS: Citalopram 20 MG Tab PO SCH (08:05)
[2018-05-25] MEDS: Metoclopramide 10 MG Tab PO SCH ×2 (08:05→18:23)
[2018-05-25] MEDS: Albuterol/Ipratropium 3.0-0.5 MG/3 ML Neb Soln NEB SCH ×2 (08:06→19:23)
[2018-05-25] MEDS: Furosemide 20 MG Tab PO SCH (08:06)
[2018-05-25] MEDS: Ibuprofen 600 MG Tab PO SCH ×2 (08:06→18:23)
[2018-05-25] MEDS: Cyanocobalamin (Vitamin B12) 1,000 MCG Tab PO SCH (08:07)
[2018-05-25] MEDS: Potassium Chloride 10% 20 MEQ/15 ML Soln 15 ML UD Cup PO SCH ×3 (08:07→19:23)
[2018-05-25] MEDS: Niacin 500 MG Tab PO SCH ×2 (08:07→18:24)
[2018-05-25] MEDS: Cholecalciferol (Vitamin D3) 25 MCG Tab PO SCH (08:08)
[2018-05-25] MEDS: LEVOTHYROXINE SODIUM 137 MCG PO SCH (19:23)
[2018-05-25] MEDS: buPROPion 100 MG Tab PO SCH (19:25)
[2018-05-25] MEDS: Simvastatin 10 MG Tab PO SCH (19:25)
[2018-05-26] MEDS: Citalopram 20 MG Tab PO SCH (07:46)
[2018-05-26] MEDS: Albuterol/Ipratropium 3.0-0.5 MG/3 ML Neb Soln NEB SCH ×2 (07:46→20:01)
[2018-05-26] MEDS: Metoclopramide 10 MG Tab PO SCH ×2 (07:46→17:33)
[2018-05-26] MEDS: Ibuprofen 600 MG Tab PO SCH ×2 (07:46→17:34)
[2018-05-26] MEDS: Furosemide 20 MG Tab PO SCH (07:46)
[2018-05-26] MEDS: Fludrocortisone 0.1 MG Tab PO SCH ×2 (07:46→20:02)
[2018-05-26] MEDS: Cholecalciferol (Vitamin D3) 25 MCG Tab PO SCH (07:47)
[2018-05-26] MEDS: Niacin 500 MG Tab PO SCH ×2 (07:47→17:34)
[2018-05-26] MEDS: Cyanocobalamin (Vitamin B12) 1,000 MCG Tab PO SCH (07:47)
[2018-05-26] MEDS: Potassium Chloride 10% 20 MEQ/15 ML Soln 15 ML UD Cup PO SCH ×3 (07:48→20:02)
[2018-05-26] MEDS: LEVOTHYROXINE SODIUM 137 MCG PO SCH (20:02)
[2018-05-26] MEDS: Simvastatin 10 MG Tab PO SCH (20:03)
[2018-05-26] MEDS: buPROPion 100 MG Tab PO SCH (20:03)
[2018-05-27] MEDS: Metoclopramide 10 MG Tab PO SCH ×2 (08:17→18:02)
[2018-05-27] MEDS: Ibuprofen 600 MG Tab PO SCH ×2 (08:18→18:02)
[2018-05-27] MEDS: Fludrocortisone 0.1 MG Tab PO SCH ×2 (08:18→19:42)
[2018-05-27] MEDS: Furosemide 20 MG Tab PO SCH (08:18)
[2018-05-27] MEDS: Albuterol/Ipratropium 3.0-0.5 MG/3 ML Neb Soln NEB SCH ×2 (08:18→19:41)
[2018-05-27] MEDS: Citalopram 20 MG Tab PO SCH (08:18)
[2018-05-27] MEDS: Potassium Chloride 10% 20 MEQ/15 ML Soln 15 ML UD Cup PO SCH ×3 (08:19→19:42)
[2018-05-27] MEDS: Niacin 500 MG Tab PO SCH ×2 (08:19→18:02)
[2018-05-27] MEDS: Cyanocobalamin (Vitamin B12) 1,000 MCG Tab PO SCH (08:20)
[2018-05-27] MEDS: Cholecalciferol (Vitamin D3) 25 MCG Tab PO SCH (08:21)
[2018-05-27] MEDS: LEVOTHYROXINE SODIUM 137 MCG PO SCH (19:42)
[2018-05-27] MEDS: buPROPion 100 MG Tab PO SCH (19:43)
[2018-05-27] MEDS: Simvastatin 10 MG Tab PO SCH (19:43)
[2018-05-28] MEDS: Furosemide 20 MG Tab PO SCH (07:25)
[2018-05-28] MEDS: Albuterol/Ipratropium 3.0-0.5 MG/3 ML Neb Soln NEB SCH ×2 (07:25→20:23)
[2018-05-28] MEDS: Fludrocortisone 0.1 MG Tab PO SCH ×2 (07:25→20:24)
[2018-05-28] MEDS: Ibuprofen 600 MG Tab PO SCH ×2 (07:25→17:31)
[2018-05-28] MEDS: Metoclopramide 10 MG Tab PO SCH ×2 (07:25→17:31)
[2018-05-28] MEDS: Citalopram 20 MG Tab PO SCH (07:25)
[2018-05-28] MEDS: Niacin 500 MG Tab PO SCH ×2 (07:26→17:31)
[2018-05-28] MEDS: Potassium Chloride 10% 20 MEQ/15 ML Soln 15 ML UD Cup PO SCH ×3 (07:26→20:24)
[2018-05-28] MEDS: Cyanocobalamin (Vitamin B12) 1,000 MCG Tab PO SCH (07:27)
[2018-05-28] MEDS: Cholecalciferol (Vitamin D3) 25 MCG Tab PO SCH (07:27)
[2018-05-28] MEDS: LEVOTHYROXINE SODIUM 137 MCG PO SCH (20:24)
[2018-05-28] MEDS: buPROPion 100 MG Tab PO SCH (20:25)
[2018-05-28] MEDS: Simvastatin 10 MG Tab PO SCH (20:25)
[2018-05-28] MEDS: Acetaminophen 325 MG Tab PO PRN (20:27)
[2018-05-29] MEDS: Metoclopramide 10 MG Tab PO SCH ×2 (08:20→18:17)
[2018-05-29] MEDS: Citalopram 20 MG Tab PO SCH (08:20)
[2018-05-29] MEDS: Ibuprofen 600 MG Tab PO SCH ×2 (08:21→18:17)
[2018-05-29] MEDS: Fludrocortisone 0.1 MG Tab PO SCH ×2 (08:21→20:04)
[2018-05-29] MEDS: Albuterol/Ipratropium 3.0-0.5 MG/3 ML Neb Soln NEB SCH ×2 (08:21→20:04)
[2018-05-29] MEDS: Niacin 500 MG Tab PO SCH ×2 (08:21→18:18)
[2018-05-29] MEDS: Furosemide 20 MG Tab PO SCH (08:21)
[2018-05-29] MEDS: Potassium Chloride 10% 20 MEQ/15 ML Soln 15 ML UD Cup PO SCH ×3 (08:22→20:05)
[2018-05-29] MEDS: Cyanocobalamin (Vitamin B12) 1,000 MCG Tab PO SCH (08:22)
[2018-05-29] MEDS: Cholecalciferol (Vitamin D3) 25 MCG Tab PO SCH (08:22)
[2018-05-29] MEDS: LEVOTHYROXINE SODIUM 137 MCG PO SCH (20:04)
[2018-05-29] MEDS: buPROPion 100 MG Tab PO SCH (20:06)
[2018-05-29] MEDS: Simvastatin 10 MG Tab PO SCH (20:06)
[2018-05-30] MEDS: Albuterol/Ipratropium 3.0-0.5 MG/3 ML Neb Soln NEB SCH ×2 (07:53→19:50)
[2018-05-30] MEDS: Citalopram 20 MG Tab PO SCH (07:53)
[2018-05-30] MEDS: Furosemide 20 MG Tab PO SCH (07:53)
[2018-05-30] MEDS: Metoclopramide 10 MG Tab PO SCH ×2 (07:53→17:47)
[2018-05-30] MEDS: Ibuprofen 600 MG Tab PO SCH ×2 (07:53→17:47)
[2018-05-30] MEDS: Fludrocortisone 0.1 MG Tab PO SCH ×2 (07:53→19:50)
[2018-05-30] MEDS: Cholecalciferol (Vitamin D3) 25 MCG Tab PO SCH (07:54)
[2018-05-30] MEDS: Cyanocobalamin (Vitamin B12) 1,000 MCG Tab PO SCH (07:54)
[2018-05-30] MEDS: Niacin 500 MG Tab PO SCH ×2 (07:54→17:48)
[2018-05-30] MEDS: Potassium Chloride 10% 20 MEQ/15 ML Soln 15 ML UD Cup PO SCH ×3 (07:55→19:51)
[2018-05-30] MEDS: LEVOTHYROXINE SODIUM 137 MCG PO SCH (19:50)
[2018-05-30] MEDS: Simvastatin 10 MG Tab PO SCH (19:51)
[2018-05-30] MEDS: buPROPion 100 MG Tab PO SCH (19:51)
[2018-05-31] MEDS: Metoclopramide 10 MG Tab PO SCH ×2 (07:29→17:37)
[2018-05-31] MEDS: Citalopram 20 MG Tab PO SCH (07:29)
[2018-05-31] MEDS: Fludrocortisone 0.1 MG Tab PO SCH ×2 (07:29→20:00)
[2018-05-31] MEDS: Albuterol/Ipratropium 3.0-0.5 MG/3 ML Neb Soln NEB SCH ×2 (07:29→19:58)
[2018-05-31] MEDS: Niacin 500 MG Tab PO SCH ×2 (07:30→17:37)
[2018-05-31] MEDS: Furosemide 20 MG Tab PO SCH (07:30)
[2018-05-31] MEDS: Ibuprofen 600 MG Tab PO SCH ×2 (07:30→17:37)
[2018-05-31] MEDS: Cyanocobalamin (Vitamin B12) 1,000 MCG Tab PO SCH (07:31)
[2018-05-31] MEDS: Cholecalciferol (Vitamin D3) 25 MCG Tab PO SCH (07:31)
[2018-05-31] MEDS: Potassium Chloride 10% 20 MEQ/15 ML Soln 15 ML UD Cup PO SCH ×3 (07:32→20:00)
[2018-05-31] MEDS: LEVOTHYROXINE SODIUM 137 MCG PO SCH (20:00)
[2018-05-31] MEDS: Simvastatin 10 MG Tab PO SCH (20:01)
[2018-05-31] MEDS: buPROPion 100 MG Tab PO SCH (20:01)
[2018-05-31] MEDS: Acetaminophen 325 MG Tab PO PRN (20:02)
[2018-05-31] MEDS: traMADol 50 MG Tab PO PRN (20:03)
[2018-06-01] MEDS: Citalopram 20 MG Tab PO SCH (07:35)
[2018-06-01] MEDS: Metoclopramide 10 MG Tab PO SCH ×2 (07:35→17:29)
[2018-06-01] MEDS: Ibuprofen 600 MG Tab PO SCH ×2 (07:35→17:29)
[2018-06-01] MEDS: Fludrocortisone 0.1 MG Tab PO SCH ×2 (07:35→19:19)
[2018-06-01] MEDS: Furosemide 20 MG Tab PO SCH (07:35)
[2018-06-01] MEDS: Cyanocobalamin (Vitamin B12) 1,000 MCG Tab PO SCH (07:36)
[2018-06-01] MEDS: Niacin 500 MG Tab PO SCH ×2 (07:36→17:29)
[2018-06-01] MEDS: Albuterol/Ipratropium 3.0-0.5 MG/3 ML Neb Soln NEB SCH ×2 (07:37→19:19)
[2018-06-01] MEDS: Potassium Chloride 10% 20 MEQ/15 ML Soln 15 ML UD Cup PO SCH ×3 (07:37→19:20)
[2018-06-01] MEDS: Cholecalciferol (Vitamin D3) 25 MCG Tab PO SCH (07:38)
[2018-06-01] MEDS: LEVOTHYROXINE SODIUM 137 MCG PO SCH (19:19)
[2018-06-01] MEDS: buPROPion 100 MG Tab PO SCH (19:19)
[2018-06-01] MEDS: Simvastatin 10 MG Tab PO SCH (19:20)
[2018-06-02] MEDS: Furosemide 20 MG Tab PO SCH (07:47)
[2018-06-02] MEDS: Fludrocortisone 0.1 MG Tab PO SCH ×2 (07:47→19:24)
[2018-06-02] MEDS: Citalopram 20 MG Tab PO SCH (07:47)
[2018-06-02] MEDS: Ibuprofen 600 MG Tab PO SCH ×2 (07:47→17:35)
[2018-06-02] MEDS: Albuterol/Ipratropium 3.0-0.5 MG/3 ML Neb Soln NEB SCH ×2 (07:47→19:23)
[2018-06-02] MEDS: Metoclopramide 10 MG Tab PO SCH ×2 (07:47→17:35)
[2018-06-02] MEDS: Cyanocobalamin (Vitamin B12) 1,000 MCG Tab PO SCH (07:48)
[2018-06-02] MEDS: Niacin 500 MG Tab PO SCH ×2 (07:48→17:36)
[2018-06-02] MEDS: Cholecalciferol (Vitamin D3) 25 MCG Tab PO SCH (07:49)
[2018-06-02] MEDS: Potassium Chloride 10% 20 MEQ/15 ML Soln 15 ML UD Cup PO SCH ×3 (07:49→19:24)
[2018-06-02] MEDS: LEVOTHYROXINE SODIUM 137 MCG PO SCH (19:24)
[2018-06-02] MEDS: buPROPion 100 MG Tab PO SCH (19:24)
[2018-06-02] MEDS: Simvastatin 10 MG Tab PO SCH (19:24)
[2018-06-03] MEDS: Metoclopramide 10 MG Tab PO SCH ×2 (07:59→17:53)
[2018-06-03] MEDS: Furosemide 20 MG Tab PO SCH (07:59)
[2018-06-03] MEDS: Citalopram 20 MG Tab PO SCH (07:59)
[2018-06-03] MEDS: Fludrocortisone 0.1 MG Tab PO SCH ×2 (07:59→19:40)
[2018-06-03] MEDS: Ibuprofen 600 MG Tab PO SCH ×2 (08:00→17:52)
[2018-06-03] MEDS: Niacin 500 MG Tab PO SCH ×2 (08:00→17:53)
[2018-06-03] MEDS: Cholecalciferol (Vitamin D3) 25 MCG Tab PO SCH (08:01)
[2018-06-03] MEDS: Potassium Chloride 10% 20 MEQ/15 ML Soln 15 ML UD Cup PO SCH ×3 (08:01→19:41)
[2018-06-03] MEDS: Albuterol/Ipratropium 3.0-0.5 MG/3 ML Neb Soln NEB SCH ×2 (08:02→19:40)
[2018-06-03] MEDS: Cyanocobalamin (Vitamin B12) 1,000 MCG Tab PO SCH (08:02)
[2018-06-03] MEDS: LEVOTHYROXINE SODIUM 137 MCG PO SCH (19:40)
[2018-06-03] MEDS: Simvastatin 10 MG Tab PO SCH (19:40)
[2018-06-03] MEDS: buPROPion 100 MG Tab PO SCH (19:40)
[2018-06-04] MEDS: Citalopram 20 MG Tab PO SCH (07:48)
[2018-06-04] MEDS: Furosemide 20 MG Tab PO SCH (07:48)
[2018-06-04] MEDS: Ibuprofen 600 MG Tab PO SCH ×2 (07:48→17:56)
[2018-06-04] MEDS: Fludrocortisone 0.1 MG Tab PO SCH ×2 (07:48→19:45)
[2018-06-04] MEDS: Albuterol/Ipratropium 3.0-0.5 MG/3 ML Neb Soln NEB SCH ×2 (07:49→19:45)
[2018-06-04] MEDS: Metoclopramide 10 MG Tab PO SCH ×2 (07:49→17:56)
[2018-06-04] MEDS: Niacin 500 MG Tab PO SCH ×2 (07:50→17:57)
[2018-06-04] MEDS: Potassium Chloride 10% 20 MEQ/15 ML Soln 15 ML UD Cup PO SCH ×3 (07:50→19:46)
[2018-06-04] MEDS: Cyanocobalamin (Vitamin B12) 1,000 MCG Tab PO SCH (07:51)
[2018-06-04] MEDS: Cholecalciferol (Vitamin D3) 25 MCG Tab PO SCH (07:52)
[2018-06-04] MEDS: LEVOTHYROXINE SODIUM 137 MCG PO SCH (19:46)
[2018-06-04] MEDS: Simvastatin 10 MG Tab PO SCH (19:47)
[2018-06-04] MEDS: buPROPion 100 MG Tab PO SCH (19:47)
[2018-06-05] MEDS: Metoclopramide 10 MG Tab PO SCH ×2 (08:26→18:06)
[2018-06-05] MEDS: Furosemide 20 MG Tab PO SCH (08:27)
[2018-06-05] MEDS: Ibuprofen 600 MG Tab PO SCH ×2 (08:27→18:06)
[2018-06-05] MEDS: Albuterol/Ipratropium 3.0-0.5 MG/3 ML Neb Soln NEB SCH ×2 (08:27→19:16)
[2018-06-05] MEDS: Citalopram 20 MG Tab PO SCH (08:27)
[2018-06-05] MEDS: Fludrocortisone 0.1 MG Tab PO SCH ×2 (08:27→19:16)
[2018-06-05] MEDS: Potassium Chloride 10% 20 MEQ/15 ML Soln 15 ML UD Cup PO SCH ×3 (08:30→19:16)
[2018-06-05] MEDS: Niacin 500 MG Tab PO SCH ×2 (08:30→18:06)
[2018-06-05] MEDS: Cyanocobalamin (Vitamin B12) 1,000 MCG Tab PO SCH (08:31)
[2018-06-05] MEDS: Cholecalciferol (Vitamin D3) 25 MCG Tab PO SCH (08:31)
[2018-06-05] MEDS: Simvastatin 10 MG Tab PO SCH (19:16)
[2018-06-05] MEDS: buPROPion 100 MG Tab PO SCH (19:16)
[2018-06-05] MEDS: LEVOTHYROXINE SODIUM 137 MCG PO SCH (19:16)
[2018-06-06] MEDS: Citalopram 20 MG Tab PO SCH (08:09)
[2018-06-06] MEDS: Albuterol/Ipratropium 3.0-0.5 MG/3 ML Neb Soln NEB SCH ×2 (08:09→19:12)
[2018-06-06] MEDS: Fludrocortisone 0.1 MG Tab PO SCH ×2 (08:09→19:12)
[2018-06-06] MEDS: Metoclopramide 10 MG Tab PO SCH ×2 (08:09→18:05)
[2018-06-06] MEDS: Furosemide 20 MG Tab PO SCH (08:10)
[2018-06-06] MEDS: Ibuprofen 600 MG Tab PO SCH ×2 (08:10→18:05)
[2018-06-06] MEDS: Potassium Chloride 10% 20 MEQ/15 ML Soln 15 ML UD Cup PO SCH ×3 (08:11→19:12)
[2018-06-06] MEDS: Niacin 500 MG Tab PO SCH ×2 (08:11→18:05)
[2018-06-06] MEDS: Cyanocobalamin (Vitamin B12) 1,000 MCG Tab PO SCH (08:12)
[2018-06-06] MEDS: Cholecalciferol (Vitamin D3) 25 MCG Tab PO SCH (08:13)
[2018-06-06] MEDS: LEVOTHYROXINE SODIUM 137 MCG PO SCH (19:12)
[2018-06-06] MEDS: buPROPion 100 MG Tab PO SCH (19:12)
[2018-06-06] MEDS: Simvastatin 10 MG Tab PO SCH (19:12)
[2018-06-07] MEDS: Metoclopramide 10 MG Tab PO SCH ×2 (08:14→18:13)
[2018-06-07] MEDS: Citalopram 20 MG Tab PO SCH (08:14)
[2018-06-07] MEDS: Furosemide 20 MG Tab PO SCH (08:15)
[2018-06-07] MEDS: Albuterol/Ipratropium 3.0-0.5 MG/3 ML Neb Soln NEB SCH ×2 (08:15→20:07)
[2018-06-07] MEDS: Fludrocortisone 0.1 MG Tab PO SCH ×2 (08:15→20:07)
[2018-06-07] MEDS: Ibuprofen 600 MG Tab PO SCH ×2 (08:16→18:14)
[2018-06-07] MEDS: Niacin 500 MG Tab PO SCH ×2 (08:16→18:14)
[2018-06-07] MEDS: Potassium Chloride 10% 20 MEQ/15 ML Soln 15 ML UD Cup PO SCH ×3 (08:17→20:09)
[2018-06-07] MEDS: Cyanocobalamin (Vitamin B12) 1,000 MCG Tab PO SCH (08:18)
[2018-06-07] MEDS: Cholecalciferol (Vitamin D3) 25 MCG Tab PO SCH (08:18)
[2018-06-07] MEDS: LEVOTHYROXINE SODIUM 137 MCG PO SCH (20:07)
[2018-06-07] MEDS: buPROPion 100 MG Tab PO SCH (20:10)
[2018-06-07] MEDS: Simvastatin 10 MG Tab PO SCH (20:10)
[2018-06-08] MEDS: Metoclopramide 10 MG Tab PO SCH ×2 (07:27→17:20)
[2018-06-08] MEDS: Fludrocortisone 0.1 MG Tab PO SCH ×2 (07:27→19:23)
[2018-06-08] MEDS: Furosemide 20 MG Tab PO SCH (07:27)
[2018-06-08] MEDS: Citalopram 20 MG Tab PO SCH (07:27)
[2018-06-08] MEDS: Albuterol/Ipratropium 3.0-0.5 MG/3 ML Neb Soln NEB SCH ×2 (07:27→19:23)
[2018-06-08] MEDS: Niacin 500 MG Tab PO SCH ×2 (07:28→17:21)
[2018-06-08] MEDS: Cholecalciferol (Vitamin D3) 25 MCG Tab PO SCH (07:28)
[2018-06-08] MEDS: Ibuprofen 600 MG Tab PO SCH ×2 (07:28→17:20)
[2018-06-08] MEDS: Cyanocobalamin (Vitamin B12) 1,000 MCG Tab PO SCH (07:28)
[2018-06-08] MEDS: Potassium Chloride 10% 20 MEQ/15 ML Soln 15 ML UD Cup PO SCH ×3 (07:29→19:24)
[2018-06-08] MEDS: Ibuprofen 600 MG Tab PO PRN (19:23)
[2018-06-08] MEDS: LEVOTHYROXINE SODIUM 137 MCG PO SCH (19:24)
[2018-06-08] MEDS: Simvastatin 10 MG Tab PO SCH (19:25)
[2018-06-08] MEDS: buPROPion 100 MG Tab PO SCH (19:25)
[2018-06-09] MEDS: Fludrocortisone 0.1 MG Tab PO SCH ×2 (07:27→19:29)
[2018-06-09] MEDS: Metoclopramide 10 MG Tab PO SCH ×2 (07:27→17:35)
[2018-06-09] MEDS: Citalopram 20 MG Tab PO SCH (07:27)
[2018-06-09] MEDS: Albuterol/Ipratropium 3.0-0.5 MG/3 ML Neb Soln NEB SCH ×2 (07:27→19:29)
[2018-06-09] MEDS: Cyanocobalamin (Vitamin B12) 1,000 MCG Tab PO SCH (07:28)
[2018-06-09] MEDS: Niacin 500 MG Tab PO SCH ×2 (07:28→17:35)
[2018-06-09] MEDS: Ibuprofen 600 MG Tab PO SCH ×2 (07:28→17:35)
[2018-06-09] MEDS: Furosemide 20 MG Tab PO SCH (07:28)
[2018-06-09] MEDS: Potassium Chloride 10% 20 MEQ/15 ML Soln 15 ML UD Cup PO SCH ×3 (07:29→19:31)
[2018-06-09] MEDS: Cholecalciferol (Vitamin D3) 25 MCG Tab PO SCH (07:29)
[2018-06-09] MEDS: Simvastatin 10 MG Tab PO SCH (19:30)
[2018-06-09] MEDS: LEVOTHYROXINE SODIUM 137 MCG PO SCH (19:30)
[2018-06-09] MEDS: buPROPion 100 MG Tab PO SCH (19:30)
[2018-06-10] MEDS: Metoclopramide 10 MG Tab PO SCH ×2 (08:06→18:00)
[2018-06-10] MEDS: Furosemide 20 MG Tab PO SCH (08:07)
[2018-06-10] MEDS: Fludrocortisone 0.1 MG Tab PO SCH ×2 (08:07→19:26)
[2018-06-10] MEDS: Albuterol/Ipratropium 3.0-0.5 MG/3 ML Neb Soln NEB SCH ×2 (08:07→19:25)
[2018-06-10] MEDS: Citalopram 20 MG Tab PO SCH (08:07)
[2018-06-10] MEDS: Ibuprofen 600 MG Tab PO SCH ×2 (08:07→18:00)
[2018-06-10] MEDS: Niacin 500 MG Tab PO SCH ×2 (08:08→18:01)
[2018-06-10] MEDS: Cyanocobalamin (Vitamin B12) 1,000 MCG Tab PO SCH (08:09)
[2018-06-10] MEDS: Potassium Chloride 10% 20 MEQ/15 ML Soln 15 ML UD Cup PO SCH ×3 (08:09→19:26)
[2018-06-10] MEDS: Cholecalciferol (Vitamin D3) 25 MCG Tab PO SCH (08:10)
[2018-06-10] MEDS: Simvastatin 10 MG Tab PO SCH (19:25)
[2018-06-10] MEDS: buPROPion 100 MG Tab PO SCH (19:25)
[2018-06-10] MEDS: LEVOTHYROXINE SODIUM 137 MCG PO SCH (19:25)
[2018-06-11] MEDS: Albuterol/Ipratropium 3.0-0.5 MG/3 ML Neb Soln NEB SCH ×2 (07:58→19:24)
[2018-06-11] MEDS: Citalopram 20 MG Tab PO SCH (07:58)
[2018-06-11] MEDS: Metoclopramide 10 MG Tab PO SCH ×2 (07:58→17:32)
[2018-06-11] MEDS: Fludrocortisone 0.1 MG Tab PO SCH ×2 (07:58→19:25)
[2018-06-11] MEDS: Furosemide 20 MG Tab PO SCH (07:59)
[2018-06-11] MEDS: Niacin 500 MG Tab PO SCH ×2 (07:59→17:32)
[2018-06-11] MEDS: Ibuprofen 600 MG Tab PO SCH ×2 (07:59→17:32)
[2018-06-11] MEDS: Potassium Chloride 10% 20 MEQ/15 ML Soln 15 ML UD Cup PO SCH ×3 (08:00→19:25)
[2018-06-11] MEDS: Cyanocobalamin (Vitamin B12) 1,000 MCG Tab PO SCH (08:00)
[2018-06-11] MEDS: Cholecalciferol (Vitamin D3) 25 MCG Tab PO SCH (08:00)
[2018-06-11] MEDS: LEVOTHYROXINE SODIUM 137 MCG PO SCH (19:25)
[2018-06-11] MEDS: Simvastatin 10 MG Tab PO SCH (19:26)
[2018-06-11] MEDS: buPROPion 100 MG Tab PO SCH (19:26)
[2018-06-12] MEDS: Metoclopramide 10 MG Tab PO SCH ×2 (07:04→17:19)
[2018-06-12] MEDS: Citalopram 20 MG Tab PO SCH (07:04)
[2018-06-12] MEDS: Albuterol/Ipratropium 3.0-0.5 MG/3 ML Neb Soln NEB SCH ×2 (07:05→19:04)
[2018-06-12] MEDS: Furosemide 20 MG Tab PO SCH (07:05)
[2018-06-12] MEDS: Ibuprofen 600 MG Tab PO SCH ×2 (07:05→17:19)
[2018-06-12] MEDS: Fludrocortisone 0.1 MG Tab PO SCH ×2 (07:05→19:03)
[2018-06-12] MEDS: Cyanocobalamin (Vitamin B12) 1,000 MCG Tab PO SCH (07:12)
[2018-06-12] MEDS: Niacin 500 MG Tab PO SCH ×2 (07:12→17:20)
[2018-06-12] MEDS: Potassium Chloride 10% 20 MEQ/15 ML Soln 15 ML UD Cup PO SCH ×3 (07:12→19:04)
[2018-06-12] MEDS: Cholecalciferol (Vitamin D3) 25 MCG Tab PO SCH (07:13)
[2018-06-12] MEDS: Simvastatin 10 MG Tab PO SCH (19:03)
[2018-06-12] MEDS: LEVOTHYROXINE SODIUM 137 MCG PO SCH (19:03)
[2018-06-12] MEDS: buPROPion 100 MG Tab PO SCH (19:03)
[2018-06-13] MEDS: Potassium Chloride 10% 20 MEQ/15 ML Soln 15 ML UD Cup PO SCH ×3 (07:20→19:13)
[2018-06-13] MEDS: Metoclopramide 10 MG Tab PO SCH ×2 (07:20→17:08)
[2018-06-13] MEDS: Albuterol/Ipratropium 3.0-0.5 MG/3 ML Neb Soln NEB SCH ×2 (07:21→19:13)
[2018-06-13] MEDS: Citalopram 20 MG Tab PO SCH (07:21)
[2018-06-13] MEDS: Fludrocortisone 0.1 MG Tab PO SCH ×2 (07:21→19:12)
[2018-06-13] MEDS: Furosemide 20 MG Tab PO SCH (07:21)
[2018-06-13] MEDS: Ibuprofen 600 MG Tab PO SCH ×2 (07:21→17:08)
[2018-06-13] MEDS: Cyanocobalamin (Vitamin B12) 1,000 MCG Tab PO SCH (07:22)
[2018-06-13] MEDS: Cholecalciferol (Vitamin D3) 25 MCG Tab PO SCH (07:22)
[2018-06-13] MEDS: Niacin 500 MG Tab PO SCH ×2 (07:22→17:09)
[2018-06-13] MEDS: LEVOTHYROXINE SODIUM 137 MCG PO SCH (19:12)
[2018-06-13] MEDS: Simvastatin 10 MG Tab PO SCH (19:12)
[2018-06-13] MEDS: buPROPion 100 MG Tab PO SCH (19:12)
[2018-06-14] MEDS: Albuterol/Ipratropium 3.0-0.5 MG/3 ML Neb Soln NEB SCH ×2 (07:34→19:24)
[2018-06-14] MEDS: Citalopram 20 MG Tab PO SCH (07:35)
[2018-06-14] MEDS: Fludrocortisone 0.1 MG Tab PO SCH ×2 (07:35→19:24)
[2018-06-14] MEDS: Furosemide 20 MG Tab PO SCH (07:35)
[2018-06-14] MEDS: Ibuprofen 600 MG Tab PO SCH ×2 (07:35→17:07)
[2018-06-14] MEDS: Metoclopramide 10 MG Tab PO SCH ×2 (07:35→17:07)
[2018-06-14] MEDS: Niacin 500 MG Tab PO SCH ×2 (07:36→17:08)
[2018-06-14] MEDS: Cholecalciferol (Vitamin D3) 25 MCG Tab PO SCH (07:36)
[2018-06-14] MEDS: Potassium Chloride 10% 20 MEQ/15 ML Soln 15 ML UD Cup PO SCH ×3 (07:36→19:24)
[2018-06-14] MEDS: Cyanocobalamin (Vitamin B12) 1,000 MCG Tab PO SCH (07:36)
[2018-06-14] MEDS: Clotrimazole 1% Crm 30 GM Tube TOP PRN (09:43)
[2018-06-14] MEDS: Simvastatin 10 MG Tab PO SCH (19:24)
[2018-06-14] MEDS: LEVOTHYROXINE SODIUM 137 MCG PO SCH (19:24)
[2018-06-14] MEDS: buPROPion 100 MG Tab PO SCH (19:24)
[2018-06-15] MEDS: Metoclopramide 10 MG Tab PO SCH ×2 (07:32→17:30)
[2018-06-15] MEDS: Citalopram 20 MG Tab PO SCH (07:32)
[2018-06-15] MEDS: Ibuprofen 600 MG Tab PO SCH ×2 (07:33→17:30)
[2018-06-15] MEDS: Fludrocortisone 0.1 MG Tab PO SCH ×2 (07:33→19:20)
[2018-06-15] MEDS: Albuterol/Ipratropium 3.0-0.5 MG/3 ML Neb Soln NEB SCH ×2 (07:33→19:20)
[2018-06-15] MEDS: Niacin 500 MG Tab PO SCH ×2 (07:33→17:30)
[2018-06-15] MEDS: Furosemide 20 MG Tab PO SCH (07:33)
[2018-06-15] MEDS: Potassium Chloride 10% 20 MEQ/15 ML Soln 15 ML UD Cup PO SCH ×3 (07:34→19:21)
[2018-06-15] MEDS: Cyanocobalamin (Vitamin B12) 1,000 MCG Tab PO SCH (07:35)
[2018-06-15] MEDS: Clotrimazole 1% Crm 30 GM Tube TOP PRN ×2 (07:35→19:22)
[2018-06-15] MEDS: Cholecalciferol (Vitamin D3) 25 MCG Tab PO SCH (07:35)
[2018-06-15] MEDS: buPROPion 100 MG Tab PO SCH (19:20)
[2018-06-15] MEDS: Simvastatin 10 MG Tab PO SCH (19:20)
[2018-06-15] MEDS: LEVOTHYROXINE SODIUM 137 MCG PO SCH (19:20)
[2018-06-16] MEDS: Clotrimazole 1% Crm 30 GM Tube TOP PRN (07:30)
[2018-06-16] MEDS: Fludrocortisone 0.1 MG Tab PO SCH ×2 (07:41→19:19)
[2018-06-16] MEDS: Metoclopramide 10 MG Tab PO SCH ×2 (07:41→17:17)
[2018-06-16] MEDS: Furosemide 20 MG Tab PO SCH (07:41)
[2018-06-16] MEDS: Ibuprofen 600 MG Tab PO SCH ×2 (07:41→17:17)
[2018-06-16] MEDS: Citalopram 20 MG Tab PO SCH (07:41)
[2018-06-16] MEDS: Albuterol/Ipratropium 3.0-0.5 MG/3 ML Neb Soln NEB SCH ×2 (07:41→19:19)
[2018-06-16] MEDS: Potassium Chloride 10% 20 MEQ/15 ML Soln 15 ML UD Cup PO SCH ×3 (07:42→19:19)
[2018-06-16] MEDS: Cholecalciferol (Vitamin D3) 25 MCG Tab PO SCH (07:42)
[2018-06-16] MEDS: Cyanocobalamin (Vitamin B12) 1,000 MCG Tab PO SCH (07:42)
[2018-06-16] MEDS: Niacin 500 MG Tab PO SCH ×2 (07:48→17:17)
[2018-06-16] MEDS: LEVOTHYROXINE SODIUM 137 MCG PO SCH (19:19)
[2018-06-16] MEDS: Simvastatin 10 MG Tab PO SCH (19:20)
[2018-06-16] MEDS: buPROPion 100 MG Tab PO SCH (19:20)
[2018-06-17] MEDS: Clotrimazole 1% Crm 30 GM Tube TOP PRN (07:01)
[2018-06-17] MEDS: Albuterol/Ipratropium 3.0-0.5 MG/3 ML Neb Soln NEB SCH ×2 (07:01→19:17)
[2018-06-17] MEDS: Metoclopramide 10 MG Tab PO SCH ×2 (07:56→17:16)
[2018-06-17] MEDS: Citalopram 20 MG Tab PO SCH (07:57)
[2018-06-17] MEDS: Furosemide 20 MG Tab PO SCH (07:57)
[2018-06-17] MEDS: Fludrocortisone 0.1 MG Tab PO SCH ×2 (07:57→19:18)
[2018-06-17] MEDS: Ibuprofen 600 MG Tab PO SCH ×2 (07:58→17:16)
[2018-06-17] MEDS: Niacin 500 MG Tab PO SCH ×2 (08:00→17:17)
[2018-06-17] MEDS: Potassium Chloride 10% 20 MEQ/15 ML Soln 15 ML UD Cup PO SCH ×3 (08:00→19:18)
[2018-06-17] MEDS: Cholecalciferol (Vitamin D3) 25 MCG Tab PO SCH (08:03)
[2018-06-17] MEDS: Cyanocobalamin (Vitamin B12) 1,000 MCG Tab PO SCH (08:03)
[2018-06-17] MEDS: LEVOTHYROXINE SODIUM 137 MCG PO SCH (19:18)
[2018-06-17] MEDS: buPROPion 100 MG Tab PO SCH (19:19)
[2018-06-17] MEDS: Simvastatin 10 MG Tab PO SCH (19:19)
[2018-06-17] MEDS: Acetaminophen 325 MG Tab PO PRN (19:20)
[2018-06-18] MEDS: Metoclopramide 10 MG Tab PO SCH ×2 (07:37→17:18)
[2018-06-18] MEDS: Citalopram 20 MG Tab PO SCH (07:37)
[2018-06-18] MEDS: Albuterol/Ipratropium 3.0-0.5 MG/3 ML Neb Soln NEB SCH ×2 (07:37→19:12)
[2018-06-18] MEDS: Fludrocortisone 0.1 MG Tab PO SCH ×2 (07:38→19:13)
[2018-06-18] MEDS: Ibuprofen 600 MG Tab PO SCH ×2 (07:38→17:18)
[2018-06-18] MEDS: Furosemide 20 MG Tab PO SCH (07:38)
[2018-06-18] MEDS: Niacin 500 MG Tab PO SCH ×2 (07:39→17:19)
[2018-06-18] MEDS: Cholecalciferol (Vitamin D3) 25 MCG Tab PO SCH (07:40)
[2018-06-18] MEDS: Potassium Chloride 10% 20 MEQ/15 ML Soln 15 ML UD Cup PO SCH ×3 (07:40→19:15)
[2018-06-18] MEDS: Cyanocobalamin (Vitamin B12) 1,000 MCG Tab PO SCH (07:40)
[2018-06-18] MEDS: LEVOTHYROXINE SODIUM 137 MCG PO SCH (19:13)
[2018-06-18] MEDS: buPROPion 100 MG Tab PO SCH (19:15)
[2018-06-18] MEDS: Simvastatin 10 MG Tab PO SCH (19:16)
[2018-06-18] MEDS: Acetaminophen 325 MG Tab PO PRN (19:16)
[2018-06-19] MEDS: Albuterol/Ipratropium 3.0-0.5 MG/3 ML Neb Soln NEB SCH ×2 (07:43→19:53)
[2018-06-19] MEDS: Fludrocortisone 0.1 MG Tab PO SCH ×2 (07:43→19:54)
[2018-06-19] MEDS: Metoclopramide 10 MG Tab PO SCH ×2 (07:43→17:08)
[2018-06-19] MEDS: Citalopram 20 MG Tab PO SCH (07:43)
[2018-06-19] MEDS: Ibuprofen 600 MG Tab PO SCH ×2 (07:43→17:08)
[2018-06-19] MEDS: Furosemide 20 MG Tab PO SCH (07:43)
[2018-06-19] MEDS: Potassium Chloride 10% 20 MEQ/15 ML Soln 15 ML UD Cup PO SCH ×3 (07:44→19:54)
[2018-06-19] MEDS: Niacin 500 MG Tab PO SCH ×2 (07:44→17:09)
[2018-06-19] MEDS: Cyanocobalamin (Vitamin B12) 1,000 MCG Tab PO SCH (07:45)
[2018-06-19] MEDS: Cholecalciferol (Vitamin D3) 25 MCG Tab PO SCH (07:45)
[2018-06-19] MEDS: Clotrimazole 1% Crm 30 GM Tube TOP PRN ×2 (07:46→19:56)
[2018-06-19] MEDS: LEVOTHYROXINE SODIUM 137 MCG PO SCH (19:54)
[2018-06-19] MEDS: buPROPion 100 MG Tab PO SCH (19:55)
[2018-06-19] MEDS: Simvastatin 10 MG Tab PO SCH (19:55)
[2018-06-20] MEDS: Metoclopramide 10 MG Tab PO SCH ×2 (07:45→17:31)
[2018-06-20] MEDS: Citalopram 20 MG Tab PO SCH (07:45)
[2018-06-20] MEDS: Albuterol/Ipratropium 3.0-0.5 MG/3 ML Neb Soln NEB SCH ×2 (07:45→19:26)
[2018-06-20] MEDS: Fludrocortisone 0.1 MG Tab PO SCH ×2 (07:45→19:26)
[2018-06-20] MEDS: Furosemide 20 MG Tab PO SCH (07:46)
[2018-06-20] MEDS: Niacin 500 MG Tab PO SCH ×2 (07:46→17:31)
[2018-06-20] MEDS: Ibuprofen 600 MG Tab PO SCH ×2 (07:46→17:31)
[2018-06-20] MEDS: Potassium Chloride 10% 20 MEQ/15 ML Soln 15 ML UD Cup PO SCH ×3 (07:47→19:27)
[2018-06-20] MEDS: Cholecalciferol (Vitamin D3) 25 MCG Tab PO SCH (07:47)
[2018-06-20] MEDS: Cyanocobalamin (Vitamin B12) 1,000 MCG Tab PO SCH (07:47)
[2018-06-20] MEDS: LEVOTHYROXINE SODIUM 137 MCG PO SCH (19:27)
[2018-06-20] MEDS: Simvastatin 10 MG Tab PO SCH (19:27)
[2018-06-20] MEDS: buPROPion 100 MG Tab PO SCH (19:27)
[2018-06-20] MEDS: Clotrimazole 1% Crm 30 GM Tube TOP PRN (19:35)
[2018-06-21] MEDS: Citalopram 20 MG Tab PO SCH (07:42)
[2018-06-21] MEDS: Metoclopramide 10 MG Tab PO SCH ×2 (07:42→17:16)
[2018-06-21] MEDS: Furosemide 20 MG Tab PO SCH (07:43)
[2018-06-21] MEDS: Fludrocortisone 0.1 MG Tab PO SCH ×2 (07:43→19:59)
[2018-06-21] MEDS: Ibuprofen 600 MG Tab PO SCH ×2 (07:43→17:17)
[2018-06-21] MEDS: Albuterol/Ipratropium 3.0-0.5 MG/3 ML Neb Soln NEB SCH ×2 (07:43→19:59)
[2018-06-21] MEDS: Niacin 500 MG Tab PO SCH ×2 (07:44→17:17)
[2018-06-21] MEDS: Cholecalciferol (Vitamin D3) 25 MCG Tab PO SCH (07:44)
[2018-06-21] MEDS: Cyanocobalamin (Vitamin B12) 1,000 MCG Tab PO SCH (07:44)
[2018-06-21] MEDS: Potassium Chloride 10% 20 MEQ/15 ML Soln 15 ML UD Cup PO SCH ×3 (07:45→20:01)
[2018-06-21] MEDS: Clotrimazole 1% Crm 30 GM Tube TOP PRN ×2 (07:46→19:59)
[2018-06-21] MEDS: LEVOTHYROXINE SODIUM 137 MCG PO SCH (20:00)
[2018-06-21] MEDS: buPROPion 100 MG Tab PO SCH (20:00)
[2018-06-21] MEDS: Simvastatin 10 MG Tab PO SCH (20:00)
[2018-06-22] MEDS: Metoclopramide 10 MG Tab PO SCH ×2 (07:44→17:21)
[2018-06-22] MEDS: Citalopram 20 MG Tab PO SCH (07:44)
[2018-06-22] MEDS: Albuterol/Ipratropium 3.0-0.5 MG/3 ML Neb Soln NEB SCH ×2 (07:45→19:37)
[2018-06-22] MEDS: Fludrocortisone 0.1 MG Tab PO SCH ×2 (07:45→19:37)
[2018-06-22] MEDS: Potassium Chloride 10% 20 MEQ/15 ML Soln 15 ML UD Cup PO SCH ×3 (07:45→19:38)
[2018-06-22] MEDS: Ibuprofen 600 MG Tab PO SCH ×2 (07:45→17:21)
[2018-06-22] MEDS: Furosemide 20 MG Tab PO SCH (07:45)
[2018-06-22] MEDS: Cyanocobalamin (Vitamin B12) 1,000 MCG Tab PO SCH (07:46)
[2018-06-22] MEDS: Cholecalciferol (Vitamin D3) 25 MCG Tab PO SCH (07:46)
[2018-06-22] MEDS: Niacin 500 MG Tab PO SCH ×2 (07:46→17:22)
[2018-06-22] MEDS: Clotrimazole 1% Crm 30 GM Tube TOP PRN ×2 (08:57→20:45)
[2018-06-22] MEDS: LEVOTHYROXINE SODIUM 137 MCG PO SCH (19:37)
[2018-06-22] MEDS: buPROPion 100 MG Tab PO SCH (19:38)
[2018-06-22] MEDS: Simvastatin 10 MG Tab PO SCH (19:38)
[2018-06-23] MEDS: Metoclopramide 10 MG Tab PO SCH ×2 (08:26→17:18)
[2018-06-23] MEDS: Citalopram 20 MG Tab PO SCH (08:26)
[2018-06-23] MEDS: Furosemide 20 MG Tab PO SCH (08:27)
[2018-06-23] MEDS: Ibuprofen 600 MG Tab PO SCH ×2 (08:27→17:18)
[2018-06-23] MEDS: Albuterol/Ipratropium 3.0-0.5 MG/3 ML Neb Soln NEB SCH ×2 (08:27→19:13)
[2018-06-23] MEDS: Fludrocortisone 0.1 MG Tab PO SCH ×2 (08:27→19:11)
[2018-06-23] MEDS: Niacin 500 MG Tab PO SCH ×2 (08:28→17:18)
[2018-06-23] MEDS: Potassium Chloride 10% 20 MEQ/15 ML Soln 15 ML UD Cup PO SCH ×3 (08:29→19:12)
[2018-06-23] MEDS: Cholecalciferol (Vitamin D3) 25 MCG Tab PO SCH (08:30)
[2018-06-23] MEDS: Cyanocobalamin (Vitamin B12) 1,000 MCG Tab PO SCH (08:30)
[2018-06-23] MEDS: LEVOTHYROXINE SODIUM 137 MCG PO SCH (19:11)
[2018-06-23] MEDS: buPROPion 100 MG Tab PO SCH (19:11)
[2018-06-23] MEDS: Simvastatin 10 MG Tab PO SCH (19:12)
[2018-06-24] MEDS: Albuterol/Ipratropium 3.0-0.5 MG/3 ML Neb Soln NEB SCH ×2 (07:45→19:14)
[2018-06-24] MEDS: Metoclopramide 10 MG Tab PO SCH ×2 (07:45→17:19)
[2018-06-24] MEDS: Citalopram 20 MG Tab PO SCH (07:45)
[2018-06-24] MEDS: Fludrocortisone 0.1 MG Tab PO SCH ×2 (07:45→19:13)
[2018-06-24] MEDS: Furosemide 20 MG Tab PO SCH (07:46)
[2018-06-24] MEDS: Potassium Chloride 10% 20 MEQ/15 ML Soln 15 ML UD Cup PO SCH ×3 (07:46→19:16)
[2018-06-24] MEDS: Ibuprofen 600 MG Tab PO SCH ×2 (07:46→17:19)
[2018-06-24] MEDS: Niacin 500 MG Tab PO SCH ×2 (07:46→17:19)
[2018-06-24] MEDS: Cyanocobalamin (Vitamin B12) 1,000 MCG Tab PO SCH (07:47)
[2018-06-24] MEDS: Cholecalciferol (Vitamin D3) 25 MCG Tab PO SCH (07:47)
[2018-06-24] MEDS: Clotrimazole 1% Crm 30 GM Tube TOP PRN ×2 (07:48→19:14)
[2018-06-24] MEDS: buPROPion 100 MG Tab PO SCH (19:12)
[2018-06-24] MEDS: Simvastatin 10 MG Tab PO SCH (19:12)
[2018-06-24] MEDS: LEVOTHYROXINE SODIUM 137 MCG PO SCH (19:13)
[2018-06-25] MEDS: Metoclopramide 10 MG Tab PO SCH ×2 (07:26→18:17)
[2018-06-25] MEDS: Citalopram 20 MG Tab PO SCH (07:26)
[2018-06-25] MEDS: Ibuprofen 600 MG Tab PO SCH ×2 (07:27→18:17)
[2018-06-25] MEDS: Fludrocortisone 0.1 MG Tab PO SCH ×2 (07:27→19:42)
[2018-06-25] MEDS: Furosemide 20 MG Tab PO SCH (07:27)
[2018-06-25] MEDS: Albuterol/Ipratropium 3.0-0.5 MG/3 ML Neb Soln NEB SCH ×2 (07:28→19:41)
[2018-06-25] MEDS: Niacin 500 MG Tab PO SCH ×2 (07:28→18:18)
[2018-06-25] MEDS: Cyanocobalamin (Vitamin B12) 1,000 MCG Tab PO SCH (07:29)
[2018-06-25] MEDS: Potassium Chloride 10% 20 MEQ/15 ML Soln 15 ML UD Cup PO SCH ×3 (07:30→19:42)
[2018-06-25] MEDS: Cholecalciferol (Vitamin D3) 25 MCG Tab PO SCH (07:30)
[2018-06-25] MEDS: buPROPion 100 MG Tab PO SCH (19:42)
[2018-06-25] MEDS: LEVOTHYROXINE SODIUM 137 MCG PO SCH (19:42)
[2018-06-25] MEDS: Simvastatin 10 MG Tab PO SCH (19:44)
[2018-06-26] MEDS: Albuterol/Ipratropium 3.0-0.5 MG/3 ML Neb Soln NEB SCH ×2 (08:04→19:53)
[2018-06-26] MEDS: Citalopram 20 MG Tab PO SCH (08:04)
[2018-06-26] MEDS: Furosemide 20 MG Tab PO SCH (08:04)
[2018-06-26] MEDS: Metoclopramide 10 MG Tab PO SCH ×2 (08:04→17:33)
[2018-06-26] MEDS: Fludrocortisone 0.1 MG Tab PO SCH ×2 (08:04→19:55)
[2018-06-26] MEDS: Niacin 500 MG Tab PO SCH ×2 (08:05→17:33)
[2018-06-26] MEDS: Ibuprofen 600 MG Tab PO SCH ×2 (08:05→17:33)
[2018-06-26] MEDS: Potassium Chloride 10% 20 MEQ/15 ML Soln 15 ML UD Cup PO SCH ×3 (08:06→19:54)
[2018-06-26] MEDS: Cyanocobalamin (Vitamin B12) 1,000 MCG Tab PO SCH (08:06)
[2018-06-26] MEDS: Cholecalciferol (Vitamin D3) 25 MCG Tab PO SCH (08:07)
[2018-06-26] MEDS: buPROPion 100 MG Tab PO SCH (19:56)
[2018-06-26] MEDS: Simvastatin 10 MG Tab PO SCH (19:56)
[2018-06-26] MEDS: LEVOTHYROXINE SODIUM 137 MCG PO SCH (19:56)
[2018-06-26] MEDS: Acetaminophen 325 MG Tab PO PRN (19:57)
[2018-06-27] MEDS: Albuterol/Ipratropium 3.0-0.5 MG/3 ML Neb Soln NEB SCH ×2 (08:02→19:37)
[2018-06-27] MEDS: Metoclopramide 10 MG Tab PO SCH ×2 (08:02→18:00)
[2018-06-27] MEDS: Ibuprofen 600 MG Tab PO SCH ×2 (08:02→18:00)
[2018-06-27] MEDS: Furosemide 20 MG Tab PO SCH (08:02)
[2018-06-27] MEDS: Fludrocortisone 0.1 MG Tab PO SCH ×2 (08:02→19:37)
[2018-06-27] MEDS: Citalopram 20 MG Tab PO SCH (08:02)
[2018-06-27] MEDS: Niacin 500 MG Tab PO SCH ×2 (08:03→18:01)
[2018-06-27] MEDS: Potassium Chloride 10% 20 MEQ/15 ML Soln 15 ML UD Cup PO SCH ×3 (08:03→19:39)
[2018-06-27] MEDS: Cyanocobalamin (Vitamin B12) 1,000 MCG Tab PO SCH (08:04)
[2018-06-27] MEDS: Cholecalciferol (Vitamin D3) 25 MCG Tab PO SCH (08:05)
[2018-06-27] MEDS: Clotrimazole 1% Crm 30 GM Tube TOP PRN (08:24)
[2018-06-27] MEDS: LEVOTHYROXINE SODIUM 137 MCG PO SCH (19:37)
[2018-06-27] MEDS: buPROPion 100 MG Tab PO SCH (19:39)
[2018-06-27] MEDS: Simvastatin 10 MG Tab PO SCH (19:39)
[2018-06-28] MEDS: Metoclopramide 10 MG Tab PO SCH ×2 (07:35→17:09)
[2018-06-28] MEDS: Albuterol/Ipratropium 3.0-0.5 MG/3 ML Neb Soln NEB SCH ×2 (07:36→19:32)
[2018-06-28] MEDS: Furosemide 20 MG Tab PO SCH (07:36)
[2018-06-28] MEDS: Citalopram 20 MG Tab PO SCH (07:36)
[2018-06-28] MEDS: Fludrocortisone 0.1 MG Tab PO SCH ×2 (07:36→19:32)
[2018-06-28] MEDS: Ibuprofen 600 MG Tab PO SCH ×2 (07:36→17:09)
[2018-06-28] MEDS: Potassium Chloride 10% 20 MEQ/15 ML Soln 15 ML UD Cup PO SCH ×3 (07:37→19:33)
[2018-06-28] MEDS: Cyanocobalamin (Vitamin B12) 1,000 MCG Tab PO SCH (07:37)
[2018-06-28] MEDS: Niacin 500 MG Tab PO SCH ×2 (07:37→17:09)
[2018-06-28] MEDS: Cholecalciferol (Vitamin D3) 25 MCG Tab PO SCH (07:38)
[2018-06-28] MEDS: Clotrimazole 1% Crm 30 GM Tube TOP PRN ×2 (08:18→19:37)
[2018-06-28] MEDS: LEVOTHYROXINE SODIUM 137 MCG PO SCH (19:33)
[2018-06-28] MEDS: buPROPion 100 MG Tab PO SCH (19:34)
[2018-06-28] MEDS: Simvastatin 10 MG Tab PO SCH (19:34)
[2018-06-28] MEDS: Acetaminophen 325 MG Tab PO PRN (19:35)
[2018-06-29] MEDS: Fludrocortisone 0.1 MG Tab PO SCH ×2 (07:26→19:18)
[2018-06-29] MEDS: Citalopram 20 MG Tab PO SCH (07:26)
[2018-06-29] MEDS: Albuterol/Ipratropium 3.0-0.5 MG/3 ML Neb Soln NEB SCH ×2 (07:26→19:18)
[2018-06-29] MEDS: Metoclopramide 10 MG Tab PO SCH ×2 (07:26→17:07)
[2018-06-29] MEDS: Niacin 500 MG Tab PO SCH ×2 (07:27→17:07)
[2018-06-29] MEDS: Furosemide 20 MG Tab PO SCH (07:27)
[2018-06-29] MEDS: Potassium Chloride 10% 20 MEQ/15 ML Soln 15 ML UD Cup PO SCH ×3 (07:27→19:23)
[2018-06-29] MEDS: Ibuprofen 600 MG Tab PO SCH ×2 (07:27→17:07)
[2018-06-29] MEDS: Cyanocobalamin (Vitamin B12) 1,000 MCG Tab PO SCH (07:28)
[2018-06-29] MEDS: Cholecalciferol (Vitamin D3) 25 MCG Tab PO SCH (07:28)
[2018-06-29] MEDS: Clotrimazole 1% Crm 30 GM Tube TOP PRN ×2 (08:10→19:53)
[2018-06-29] MEDS: LEVOTHYROXINE SODIUM 137 MCG PO SCH (19:18)
[2018-06-29] MEDS: Simvastatin 10 MG Tab PO SCH (19:18)
[2018-06-29] MEDS: buPROPion 100 MG Tab PO SCH (19:18)
[2018-06-30] MEDS: Metoclopramide 10 MG Tab PO SCH ×2 (07:35→17:12)
[2018-06-30] MEDS: Albuterol/Ipratropium 3.0-0.5 MG/3 ML Neb Soln NEB SCH ×2 (07:35→19:19)
[2018-06-30] MEDS: Fludrocortisone 0.1 MG Tab PO SCH ×2 (07:35→19:19)
[2018-06-30] MEDS: Citalopram 20 MG Tab PO SCH (07:35)
[2018-06-30] MEDS: Ibuprofen 600 MG Tab PO SCH ×2 (07:36→17:12)
[2018-06-30] MEDS: Furosemide 20 MG Tab PO SCH (07:36)
[2018-06-30] MEDS: Potassium Chloride 10% 20 MEQ/15 ML Soln 15 ML UD Cup PO SCH ×3 (07:36→19:19)
[2018-06-30] MEDS: Niacin 500 MG Tab PO SCH ×2 (07:36→17:13)
[2018-06-30] MEDS: Cyanocobalamin (Vitamin B12) 1,000 MCG Tab PO SCH (07:37)
[2018-06-30] MEDS: Cholecalciferol (Vitamin D3) 25 MCG Tab PO SCH (07:37)
[2018-06-30] MEDS: Clotrimazole 1% Crm 30 GM Tube TOP PRN ×2 (07:38→20:22)
[2018-06-30] MEDS: LEVOTHYROXINE SODIUM 137 MCG PO SCH (19:19)
[2018-06-30] MEDS: buPROPion 100 MG Tab PO SCH (19:19)
[2018-06-30] MEDS: Simvastatin 10 MG Tab PO SCH (19:19)
[2018-07-01] MEDS: Albuterol/Ipratropium 3.0-0.5 MG/3 ML Neb Soln NEB SCH ×2 (07:47→19:40)
[2018-07-01] MEDS: Ibuprofen 600 MG Tab PO SCH ×2 (07:47→17:27)
[2018-07-01] MEDS: Citalopram 20 MG Tab PO SCH (07:47)
[2018-07-01] MEDS: Fludrocortisone 0.1 MG Tab PO SCH ×2 (07:47→19:41)
[2018-07-01] MEDS: Metoclopramide 10 MG Tab PO SCH ×2 (07:47→17:27)
[2018-07-01] MEDS: Furosemide 20 MG Tab PO SCH (07:47)
[2018-07-01] MEDS: Cholecalciferol (Vitamin D3) 25 MCG Tab PO SCH (07:48)
[2018-07-01] MEDS: Cyanocobalamin (Vitamin B12) 1,000 MCG Tab PO SCH (07:48)
[2018-07-01] MEDS: Niacin 500 MG Tab PO SCH ×2 (07:48→17:27)
[2018-07-01] MEDS: Potassium Chloride 10% 20 MEQ/15 ML Soln 15 ML UD Cup PO SCH ×3 (07:49→19:42)
[2018-07-01] MEDS: Clotrimazole 1% Crm 30 GM Tube TOP PRN (07:50)
[2018-07-01] MEDS: LEVOTHYROXINE SODIUM 137 MCG PO SCH (19:41)
[2018-07-01] MEDS: Simvastatin 10 MG Tab PO SCH (19:42)
[2018-07-01] MEDS: buPROPion 100 MG Tab PO SCH (19:42)
[2018-07-02] MEDS: Citalopram 20 MG Tab PO SCH (07:49)
[2018-07-02] MEDS: Metoclopramide 10 MG Tab PO SCH ×2 (07:49→18:26)
[2018-07-02] MEDS: Albuterol/Ipratropium 3.0-0.5 MG/3 ML Neb Soln NEB SCH ×2 (07:49→19:41)
[2018-07-02] MEDS: Fludrocortisone 0.1 MG Tab PO SCH ×2 (07:50→19:41)
[2018-07-02] MEDS: Furosemide 20 MG Tab PO SCH (07:50)
[2018-07-02] MEDS: Clotrimazole 1% Crm 30 GM Tube TOP PRN (07:50)
[2018-07-02] MEDS: Ibuprofen 600 MG Tab PO SCH ×2 (07:51→18:26)
[2018-07-02] MEDS: Cholecalciferol (Vitamin D3) 25 MCG Tab PO SCH (07:52)
[2018-07-02] MEDS: Niacin 500 MG Tab PO SCH ×2 (07:52→18:26)
[2018-07-02] MEDS: Cyanocobalamin (Vitamin B12) 1,000 MCG Tab PO SCH (07:52)
[2018-07-02] MEDS: Potassium Chloride 10% 20 MEQ/15 ML Soln 15 ML UD Cup PO SCH ×3 (07:53→19:43)
[2018-07-02] MEDS: LEVOTHYROXINE SODIUM 137 MCG PO SCH (19:42)
[2018-07-02] MEDS: buPROPion 100 MG Tab PO SCH (19:43)
[2018-07-02] MEDS: Simvastatin 10 MG Tab PO SCH (19:43)
[2018-07-03] MEDS: Fludrocortisone 0.1 MG Tab PO SCH ×2 (07:36→19:47)
[2018-07-03] MEDS: Citalopram 20 MG Tab PO SCH (07:36)
[2018-07-03] MEDS: Metoclopramide 10 MG Tab PO SCH ×2 (07:36→17:14)
[2018-07-03] MEDS: Albuterol/Ipratropium 3.0-0.5 MG/3 ML Neb Soln NEB SCH ×2 (07:36→19:47)
[2018-07-03] MEDS: Ibuprofen 600 MG Tab PO SCH ×2 (07:37→17:14)
[2018-07-03] MEDS: Furosemide 20 MG Tab PO SCH (07:37)
[2018-07-03] MEDS: Niacin 500 MG Tab PO SCH ×2 (07:37→17:15)
[2018-07-03] MEDS: Cholecalciferol (Vitamin D3) 25 MCG Tab PO SCH (07:38)
[2018-07-03] MEDS: Potassium Chloride 10% 20 MEQ/15 ML Soln 15 ML UD Cup PO SCH ×3 (07:38→19:47)
[2018-07-03] MEDS: Cyanocobalamin (Vitamin B12) 1,000 MCG Tab PO SCH (07:38)
[2018-07-03] MEDS: Clotrimazole 1% Crm 30 GM Tube TOP PRN ×2 (07:39→19:50)
[2018-07-03] MEDS: LEVOTHYROXINE SODIUM 137 MCG PO SCH (19:47)
[2018-07-03] MEDS: Simvastatin 10 MG Tab PO SCH (19:48)
[2018-07-03] MEDS: buPROPion 100 MG Tab PO SCH (19:48)
[2018-07-04] MEDS: Fludrocortisone 0.1 MG Tab PO SCH ×2 (07:27→19:37)
[2018-07-04] MEDS: Citalopram 20 MG Tab PO SCH (07:27)
[2018-07-04] MEDS: Ibuprofen 600 MG Tab PO SCH ×2 (07:27→17:23)
[2018-07-04] MEDS: Furosemide 20 MG Tab PO SCH (07:27)
[2018-07-04] MEDS: Metoclopramide 10 MG Tab PO SCH ×2 (07:27→17:22)
[2018-07-04] MEDS: Albuterol/Ipratropium 3.0-0.5 MG/3 ML Neb Soln NEB SCH ×2 (07:27→19:37)
[2018-07-04] MEDS: Niacin 500 MG Tab PO SCH ×2 (07:28→17:23)
[2018-07-04] MEDS: Cyanocobalamin (Vitamin B12) 1,000 MCG Tab PO SCH (07:28)
[2018-07-04] MEDS: Potassium Chloride 10% 20 MEQ/15 ML Soln 15 ML UD Cup PO SCH ×3 (07:28→19:39)
[2018-07-04] MEDS: Cholecalciferol (Vitamin D3) 25 MCG Tab PO SCH (07:29)
[2018-07-04] MEDS: Clotrimazole 1% Crm 30 GM Tube TOP PRN ×2 (07:31→19:36)
[2018-07-04] MEDS: LEVOTHYROXINE SODIUM 137 MCG PO SCH (19:37)
[2018-07-04] MEDS: buPROPion 100 MG Tab PO SCH (19:38)
[2018-07-04] MEDS: Simvastatin 10 MG Tab PO SCH (19:39)
[2018-07-05] MEDS: Albuterol/Ipratropium 3.0-0.5 MG/3 ML Neb Soln NEB SCH ×2 (07:24→19:16)
[2018-07-05] MEDS: Citalopram 20 MG Tab PO SCH (07:24)
[2018-07-05] MEDS: Fludrocortisone 0.1 MG Tab PO SCH ×2 (07:24→19:15)
[2018-07-05] MEDS: Metoclopramide 10 MG Tab PO SCH ×2 (07:24→17:14)
[2018-07-05] MEDS: Furosemide 20 MG Tab PO SCH (07:25)
[2018-07-05] MEDS: Potassium Chloride 10% 20 MEQ/15 ML Soln 15 ML UD Cup PO SCH ×3 (07:25→19:15)
[2018-07-05] MEDS: Ibuprofen 600 MG Tab PO SCH ×2 (07:25→17:14)
[2018-07-05] MEDS: Niacin 500 MG Tab PO SCH ×2 (07:25→17:14)
[2018-07-05] MEDS: Cholecalciferol (Vitamin D3) 25 MCG Tab PO SCH (07:26)
[2018-07-05] MEDS: Cyanocobalamin (Vitamin B12) 1,000 MCG Tab PO SCH (07:26)
[2018-07-05] MEDS: Clotrimazole 1% Crm 30 GM Tube TOP PRN (07:27)
[2018-07-05] MEDS: Simvastatin 10 MG Tab PO SCH (19:15)
[2018-07-05] MEDS: LEVOTHYROXINE SODIUM 137 MCG PO SCH (19:15)
[2018-07-05] MEDS: buPROPion 100 MG Tab PO SCH (19:15)
[2018-07-06] MEDS: Fludrocortisone 0.1 MG Tab PO SCH ×2 (07:59→19:18)
[2018-07-06] MEDS: Citalopram 20 MG Tab PO SCH (07:59)
[2018-07-06] MEDS: Furosemide 20 MG Tab PO SCH (07:59)
[2018-07-06] MEDS: Metoclopramide 10 MG Tab PO SCH ×2 (07:59→17:22)
[2018-07-06] MEDS: Ibuprofen 600 MG Tab PO SCH ×2 (07:59→17:22)
[2018-07-06] MEDS: Albuterol/Ipratropium 3.0-0.5 MG/3 ML Neb Soln NEB SCH ×2 (07:59→19:17)
[2018-07-06] MEDS: Potassium Chloride 10% 20 MEQ/15 ML Soln 15 ML UD Cup PO SCH ×3 (08:00→19:18)
[2018-07-06] MEDS: Niacin 500 MG Tab PO SCH ×2 (08:00→17:22)
[2018-07-06] MEDS: Cyanocobalamin (Vitamin B12) 1,000 MCG Tab PO SCH (08:00)
[2018-07-06] MEDS: Cholecalciferol (Vitamin D3) 25 MCG Tab PO SCH (08:01)
[2018-07-06] MEDS: buPROPion 100 MG Tab PO SCH (19:17)
[2018-07-06] MEDS: LEVOTHYROXINE SODIUM 137 MCG PO SCH (19:17)
[2018-07-06] MEDS: Simvastatin 10 MG Tab PO SCH (19:17)
[2018-07-07] MEDS: Metoclopramide 10 MG Tab PO SCH ×2 (07:40→17:34)
[2018-07-07] MEDS: Citalopram 20 MG Tab PO SCH (07:40)
[2018-07-07] MEDS: Fludrocortisone 0.1 MG Tab PO SCH ×2 (07:41→19:56)
[2018-07-07] MEDS: Ibuprofen 600 MG Tab PO SCH ×2 (07:41→17:34)
[2018-07-07] MEDS: Albuterol/Ipratropium 3.0-0.5 MG/3 ML Neb Soln NEB SCH ×2 (07:41→19:55)
[2018-07-07] MEDS: Furosemide 20 MG Tab PO SCH (07:41)
[2018-07-07] MEDS: Niacin 500 MG Tab PO SCH ×2 (07:42→17:35)
[2018-07-07] MEDS: Potassium Chloride 10% 20 MEQ/15 ML Soln 15 ML UD Cup PO SCH ×3 (07:42→19:56)
[2018-07-07] MEDS: Cyanocobalamin (Vitamin B12) 1,000 MCG Tab PO SCH (07:43)
[2018-07-07] MEDS: Cholecalciferol (Vitamin D3) 25 MCG Tab PO SCH (07:43)
--- NOTE | 2018-07-07 08:52 | PCM.PN ---
- General Info Date of Service: 07/07/18 Admission Dx/Problem (Free Text): Myotonic dystrophy Functional Status: Reports: Pain Controlled, Tolerating Diet, Ambulating, Urinating, New Symptoms (Stable to somewhat improving oral pain secondary to recent complete teeth extraction with patient not rating her discomfort), Incentive Spirometry - Review of Systems General: Reports: Fatigue (Stable chronic). Denies: Fever, Weakness, Malaise, Chills, Night Sweats, Appetite (Adequate) HEENT: Reports: Other (Postoperative oral pain as above). Denies: Contact Lenses, Dysphasia, Ear Pain, Eye Pain, Glasses, Headaches, Post Nasal Drip, Sinus Congestion, Sore Throat, Rhinitis, Visual Changes Pulmonary: Denies: Shortness of Breath, Pleuritic Chest Pain, Cough, Sputum, Hemoptysis, Wheezing Cardiovascular: Reports: Edema (Stable dependent edema). Denies: Chest Pain, Palpitations, Dyspnea on Exertion, Orthopnea, PND, Lightheadedness Gastrointestinal: Reports: No Symptoms. Denies: Abdominal Pain, Constipation, Decreased Appetite, Diarrhea, Difficulty Swallowing, Flatus, Hematochezia, Melena, Nausea, Vomiting Genitourinary: Reports: No Symptoms. Denies: Dysuria, Frequency, Burning, Urgency, Hematuria, Retention, Flank Pain Musculoskeletal: Reports: No Symptoms. Denies: Neck Pain, Shoulder Pain, Arm Pain, Back Pain, Leg Pain Skin: Reports: No Symptoms. Denies: Diaphoresis, Bruising Neurological: Reports: Pre-Existing Deficit (Myotonic dystrophy), Difficulty Walking (Secondary to myotonic dystrophy), Weakness (As above). Denies: Confusion, Dizziness, Headache, Numbness, Paresthesia, Seizure, Tingling, Change in Speech Psychiatric: Reports: No Symptoms. Denies: Confusion, Depression, Anxiety, Agitation, Cravings, Hallucinations - Patient Data Vitals - Most Recent: Last Vital Signs Temp 36.2 C 06/30/18 10:27 Pulse 63 06/30/18 10:27 Resp 20 06/30/18 10:27 BP 107/57 L 06/30/18 10:27 Pulse Ox 89 L 06/30/18 10:27 Weight - Most Recent: 102.557 kg (Up 2.0 kg since last visit) I&O - Last 24 Hours: Intake & Output 07/06/18 07/07/18 07/07/18 22:59 06:59 14:59 Intake Total 360 Balance 360 Imaging Impressions - Last 24 Hours: None Lab Results Last 24 Hours: None Sandor Results Last 24 Hours: None Med Orders - Current: Current Medications Acetaminophen (Tylenol) 650 mg PO Q4H PRN PRN Reason: Pain Last Admin: 06/28/18 19:35 Dose: 650 mg Albuterol/Ipratropium (Duoneb 3.0-0.5 Mg/3 Ml) 3 ml NEB BIDRT [facility] Last Admin: 07/07/18 07:41 Dose: 3 ml Albuterol/Ipratropium (Duoneb 3.0-0.5 Mg/3 Ml) 3 ml NEB Q4HRRT PRN PRN Reason: Dyspnea Last Admin: 11/30/17 19:29 Dose: 3 ml Bupropion HCl (Wellbutrin) 150 mg PO BEDTIME [facility] Last Admin: 07/06/18 19:17 Dose: 150 mg Calcium Carbonate/Glycine (Tums Extra Strength) 750 mg PO Q2HR PRN PRN Reason: Indigestion Last Admin: 02/06/18 14:57 Dose: 750 mg Cholecalciferol (Vitamin D3) 1,000 units PO QAM [facility] Last Admin: 07/07/18 07:43 Dose: 1,000 units [facility] [place] Admin: 07/07/18 07:40 Dose: 20 mg Clotrimazole (Lotrimin Af 1% Crm) 1 gm TOP BID PRN PRN Reason: Rash Last Admin: 07/05/18 07:27 Dose: 1 applic Cyanocobalamin (Vitamin B12) [facility] [place] Admin: 07/07/18 07:43 Dose: 1,000 mcg Diphenhydramine HCl (Benadryl) 25 mg PO Q4H PRN PRN Reason: Itching Fludrocortisone Acetate (Florinef) 0.1 mg PO BEDTIME [facility] Last Admin: 07/06/18 19:18 Dose: 0.1 mg Fludrocortisone Acetate (Florinef) 0.2 mg PO QAM [facility] Last Admin: 07/07/18 07:41 Dose: 0.2 mg Furosemide (Lasix) 20 mg PO DAILY [facility] Last Admin: 07/07/18 07:41 Dose: 20 mg Ibuprofen (Motrin) 600 mg PO BID [facility] Last Admin: 07/07/18 07:41 Dose: 600 mg Ibuprofen (Motrin) 600 mg PO Q6H PRN PRN Reason: Breakthrough Pain Last Admin: 06/08/18 19:23 Dose: 600 mg Metoclopramide HCl (Reglan) 10 mg PO BIDAC [facility] Last Admin: 07/07/18 07:40 Dose: 10 mg Niacin (Niacin) 500 mg PO BID [facility] Last Admin: 07/07/18 07:42 Dose: 500 mg Levothyroxine Sodium (137 Mcg Tablets) 137 mcg PO BEDTIME [facility] Last Admin: 07/06/18 19:17 Dose: 137 mcg Potassium Chloride (Potassium Chloride Solution) 40 meq PO TID@,, [facility] Last Admin: 07/07/18 07:42 Dose: 40 meq Simvastatin (Zocor) 10 mg PO BEDTIME [facility] Last Admin: 07/06/18 19:17 Dose: 10 mg Tramadol HCl (Ultram) 50 mg PO Q6H PRN PRN Reason: Pain (severe 7-10) Last Admin: 05/31/18 20:03 Dose: 50 mg Discontinued Medications Chlorhexidine Gluconate (Peridex 0.12% Rinse) 15 ml MUCMEM BID@ [facility] Last Admin: 05/12/18 08:41 Dose: 15 ml Diphenoxylate HCl/Atropine (Lomotil 0.025-2.5 Mg) 1 tab PO QID PRN PRN Reason: Diarrhea Last Admin: 02/09/18 09:50 Dose: 1 tab Furosemide (Lasix) 40 mg IM NOW ONE Stop: 12/10/17 11:52 Last Admin: 12/10/17 13:10 Dose: 40 mg Lactobacillus Rhamnosus (Culturelle) 2 cap PO BID [facility] Stop: 03/02/18 18:00 Last Admin: 03/02/18 17:10 Dose: 2 cap Metronidazole (Flagyl) 500 mg PO Q8H [facility] Stop: 02/26/18 14:01 Last Admin: 02/26/18 14:14 Dose: 500 mg Metronidazole (Flagyl) 500 mg PO TID [facility] Stop: 05/22/18 18:01 Last Admin: 05/22/18 17:55 Dose: Not Given Cephalexin (Keflex) (500 Mg Capsules) 500 mg PO BID [facility] Last Admin: 03/11/18 07:56 Dose: 500 mg Fluconazole 150mg (Tablet) 1 each PO Q3D [facility] Stop: 12/06/17 20:01 Last Admin: 12/06/17 19:13 Dose: 1 each Nystatin (Mycostatin) 5 ml PO QID [facility] Stop: 05/19/18 16:01 Last Admin: 05/19/18 16:00 Dose: 5 ml Omeprazole (Omeprazole) 20 mg PO DAILY [facility] Last Admin: 03/11/18 07:55 Dose: 20 mg Potassium Chloride (Klor-Con M20) 20 meq PO ONETIME ONE Stop: 12/10/17 11:53 Last Admin: 12/10/17 13:10 Dose: 20 meq Potassium Chloride (Klor-Con M20) 20 meq PO DAILY [facility] - Exam Quality Assessment: Supplemental Oxygen, DVT Prophylaxis. No: Central Line/PICC , Urine Catheter, Skin Breakdown, Restraints General: Alert, Oriented, Cooperative, No Acute Distress HEENT: Pupils Equal, Pupils Reactive, EOMI, Mucous Membr. Moist/Neeses, Other ( Complete teeth extraction) Neck: Supple, Trachea Midline, No JVD, No Thyromegaly, +2 Carotid Pulse wo Bruit. No: Lymphadenopathy Lungs: Normal Respiratory Effort, Rales (Stable mild bilateral basilar). No: Rhonchi, Rub, Stridor, Wheezing Cardiovascular: Regular Rate, Regular Rhythm, No Murmurs. No: Gallops, Rubs GI/Abdominal Exam: Normal Bowel Sounds, Soft, Non-Tender, No Organomegaly, No Distention, No Abnormal Bruit, No Mass, Pelvis Stable, Other (Obese). No: Guarding (Female) Exam: Deferred Back Exam: Normal Inspection, Full Range of Motion. No: CVA Tenderness (L), CVA Tenderness (R), Muscle Spasm Extremities: Normal Inspection, Normal Range of Motion, Non-Tender, Normal Capillary Refill, Pedal Edema (Stable bilateral lymphedema of the lower extremities). No: Lurdes's Sign Peripheral Pulses: 1+: Dorsalis Pedis (L), Dorsalis Pedis (R), 2+: Radial (L), Radial (R) Skin: Warm, Dry, Intact Wound/Incisions: Healing Well (Oral cavity) Neurological: No New Focal Deficit, Other (Stable chronic weakness secondary to myotonic dystrophy) Psy/Mental Status: Alert, Normal Affect, Normal Mood. No: Agitated, Hallucinations, Withdrawal Symptoms - Problem List & Annotations (1) Caries SNOMED Code(s): 71478326 Code(s): K02.9 - DENTAL CARIES, UNSPECIFIED Status: Acute Priority: Medium Current Visit: Yes Annotation/Comment:: Complete teeth extraction on 05/05/18 without complications although the patient is still waiting her complete dentures uppers and lowers. Current Ultram therapy continues to be used for postoperative pain control. Attempt to taper this medication after resolution of her postoperative pain, however. (2) Steinert myotonic dystrophy syndrome SNOMED Code(s): 41387677 Code(s): G71.11 - MYOTONIC MUSCULAR DYSTROPHY Status: Chronic Priority: Medium Current Visit: Yes Annotation/Comment:: Stable by history and today' s exam. Continuation of every 4 month CPK, etc. evaluations especially in light of aggressive treatment of her dyslipidemia. (3) CHF, Congestive heart failure SNOMED Code(s): 02666744 Code(s): I50.9 - HEART FAILURE, UNSPECIFIED Status: Chronic Priority: Medium Current Visit: Yes Annotation/Comment:: Stable by clinical exam and history. Stable dependent edema since 12/10/17. Note weight gain of 2.0 kg since her surgery despite previous discontinuation of high protein Glucerna supplements as snacks. Note, however, dietary noncompliance is still an issue. Dietary consultation in effect. Continue to observe closely. No recent anginal complaints or current clinical evidence of CHF. Note previous history of PVCs, complete right bundle branch block/bifascicular bundle-branch block, first- degree AV block, severe dyslipidemia hypokalemia, hypophosphatemia, and hyponatremia. Continue to observe for now with no further change in medical therapy (4) COPD (chronic obstructive pulmonary disease) SNOMED Code(s): 43476680 Code(s): J44.9 - CHRONIC OBSTRUCTIVE PULMONARY DISEASE, UNSPECIFIED Status : Chronic Priority: Medium Current Visit: Yes Qualifiers: COPD type: unspecified COPD Qualified Code(s): J44.9 - Chronic obstructive pulmonary disease, unspecified Annotation/Comment:: O2 dependent COPD stable by history with no bronchitic symptoms at this time. Continue current medical therapy. Patient does have a previous history of distant postoperative respiratory distress, although no complications after recent dental surgery. (5) Hyperglycemia SNOMED Code(s): 81867342 Code(s): R73.9 - HYPERGLYCEMIA, UNSPECIFIED Status: Chronic Priority: Medium Current Visit: Yes Onset Date: 06/29/15 Annotation/Comment:: Glycosylated hemoglobin normal on 04/29/18. Note persistent dietary noncompliance with some recent weight gain as above. Dietary consultation is in effect as above. Blood work to be repeated in 2 months. Glycosylated hemoglobin was also normal on 10/28/17. (6) Hyperlipidemia SNOMED Code(s): 73523637 Code(s): E78.5 - HYPERLIPIDEMIA, UNSPECIFIED Status: Chronic Priority: Medium Current Visit: Yes Annotation/Comment:: Previous history of severe dyslipidemia with aggressive medical therapy at this time. Dietary compliance once again strongly encouraged. Repeat lipid panel on 04/29/18 was relatively stable. (7) Hypothyroidism SNOMED Code(s): 25540576 Code(s): E03.9 - HYPOTHYROIDISM, UNSPECIFIED Status: Chronic Priority: Medium Current Visit: Yes Annotation/Comment:: TSH normal on 04/29/18. No other thyroid type symptoms. (8) Mixed anxiety and depressive disorder SNOMED Code(s): 782866307 Code(s): F41.8 - OTHER SPECIFIED ANXIETY DISORDERS Status: Chronic Priority: Medium Current Visit: Yes Annotation/Comment:: Stable by history. Patient is still relatively active with physical therapy, social activities, etc.. Continue to observe closely by nursing staff with no significant depression at this time with patient often alone in her room. (9) Osteoarthritis SNOMED Code(s): 824653313 Code(s): M19.90 - UNSPECIFIED OSTEOARTHRITIS, UNSPECIFIED SITE Status: Chronic Priority: Medium Current Visit: Yes Annotation/Comment:: Stable by history as above. Note status post bilateral ankle ORIF secondary to fractures (10) UTI (urinary tract infection) SNOMED Code(s): 35438366 Code(s): N39.0 - URINARY TRACT INFECTION, SITE NOT SPECIFIED Status: Chronic Priority: Medium Current Visit: Yes Qualifiers: Hematuria presence: without hematuria Annotation/Comment:: No current UTI symptoms despite recent discontinuation of Keflex therapy for previous recurrent UTIs. Note subsequent C. difficile infection, which has since resolved. Continue to observe for now with no reinitiation of antibiotic therapy. (11) C. difficile colitis SNOMED Code(s): 444750310 Code(s): A04.72 - ENTEROCOLITIS D/T CLOSTRIDIUM DIFFICILE, NOT SPCF RECUR Status: Chronic Priority: Medium Current Visit: Yes Onset Date: Annotation/Comment:: Resolved with negative follow-up stool specimen. Continue to observe closely, however. (12) Gastroesophageal reflux disease SNOMED Code(s): 512220794 Code(s): K21.9 - GASTRO-ESOPHAGEAL REFLUX DISEASE WITHOUT ESOPHAGITIS Status: Acute Priority: Medium Current Visit: Yes Annotation/Comment:: Stable by history with no abdominal complaints. - Problem List Review Problem List Initiated/Reviewed/Updated: Yes - Assessment Assessment:: As above - Plan Plan:: As above. The patient is recertified for swing bed care for an additional 2 months. Blood work to be repeated prior to next rounds in about 2 months. Note the patient has already been scheduled for a repeat right-sided mammogram and possible additional right sided breast ultrasound on 11/05/18 in this facility as per previous simple provider note. Extensive precautions were given to the patient, who is in agreement with the treatment plan.
[2018-07-07] MEDS: Clotrimazole 1% Crm 30 GM Tube TOP PRN ×2 (09:00→23:24)
[2018-07-07] MEDS: LEVOTHYROXINE SODIUM 137 MCG PO SCH (19:56)
[2018-07-07] MEDS: buPROPion 100 MG Tab PO SCH (19:57)
[2018-07-07] MEDS: Simvastatin 10 MG Tab PO SCH (19:57)
[2018-07-08] MEDS: Clotrimazole 1% Crm 30 GM Tube TOP PRN ×2 (07:38→19:41)
[2018-07-08] MEDS: Fludrocortisone 0.1 MG Tab PO SCH ×2 (07:39→19:29)
[2018-07-08] MEDS: Metoclopramide 10 MG Tab PO SCH ×2 (07:39→17:10)
[2018-07-08] MEDS: Albuterol/Ipratropium 3.0-0.5 MG/3 ML Neb Soln NEB SCH ×2 (07:39→19:28)
[2018-07-08] MEDS: Citalopram 20 MG Tab PO SCH (07:39)
[2018-07-08] MEDS: Furosemide 20 MG Tab PO SCH (07:39)
[2018-07-08] MEDS: Ibuprofen 600 MG Tab PO SCH ×2 (07:40→17:11)
[2018-07-08] MEDS: Niacin 500 MG Tab PO SCH ×2 (07:40→17:11)
[2018-07-08] MEDS: Cyanocobalamin (Vitamin B12) 1,000 MCG Tab PO SCH (07:41)
[2018-07-08] MEDS: Potassium Chloride 10% 20 MEQ/15 ML Soln 15 ML UD Cup PO SCH ×3 (07:41→19:29)
[2018-07-08] MEDS: Cholecalciferol (Vitamin D3) 25 MCG Tab PO SCH (07:41)
[2018-07-08] MEDS: LEVOTHYROXINE SODIUM 137 MCG PO SCH (19:29)
[2018-07-08] MEDS: Simvastatin 10 MG Tab PO SCH (19:30)
[2018-07-08] MEDS: buPROPion 100 MG Tab PO SCH (19:30)
[2018-07-09] MEDS: Albuterol/Ipratropium 3.0-0.5 MG/3 ML Neb Soln NEB SCH ×2 (08:20→19:36)
[2018-07-09] MEDS: Citalopram 20 MG Tab PO SCH (08:20)
[2018-07-09] MEDS: Fludrocortisone 0.1 MG Tab PO SCH ×2 (08:20→19:36)
[2018-07-09] MEDS: Furosemide 20 MG Tab PO SCH (08:20)
[2018-07-09] MEDS: Metoclopramide 10 MG Tab PO SCH ×2 (08:20→17:36)
[2018-07-09] MEDS: Ibuprofen 600 MG Tab PO SCH ×2 (08:20→17:37)
[2018-07-09] MEDS: Niacin 500 MG Tab PO SCH ×2 (08:23→17:37)
[2018-07-09] MEDS: Cyanocobalamin (Vitamin B12) 1,000 MCG Tab PO SCH (08:24)
[2018-07-09] MEDS: Potassium Chloride 10% 20 MEQ/15 ML Soln 15 ML UD Cup PO SCH ×3 (08:24→19:37)
[2018-07-09] MEDS: Cholecalciferol (Vitamin D3) 25 MCG Tab PO SCH (08:25)
[2018-07-09] MEDS: LEVOTHYROXINE SODIUM 137 MCG PO SCH (19:36)
[2018-07-09] MEDS: Simvastatin 10 MG Tab PO SCH (19:37)
[2018-07-09] MEDS: buPROPion 100 MG Tab PO SCH (19:37)
[2018-07-09] MEDS: Clotrimazole 1% Crm 30 GM Tube TOP PRN (21:52)
[2018-07-10] MEDS: Fludrocortisone 0.1 MG Tab PO SCH ×2 (08:11→19:19)
[2018-07-10] MEDS: Citalopram 20 MG Tab PO SCH (08:11)
[2018-07-10] MEDS: Albuterol/Ipratropium 3.0-0.5 MG/3 ML Neb Soln NEB SCH ×2 (08:11→19:14)
[2018-07-10] MEDS: Metoclopramide 10 MG Tab PO SCH ×2 (08:11→17:11)
[2018-07-10] MEDS: Furosemide 20 MG Tab PO SCH (08:11)
[2018-07-10] MEDS: Ibuprofen 600 MG Tab PO SCH ×2 (08:12→17:11)
[2018-07-10] MEDS: Niacin 500 MG Tab PO SCH ×2 (08:12→17:12)
[2018-07-10] MEDS: Potassium Chloride 10% 20 MEQ/15 ML Soln 15 ML UD Cup PO SCH ×3 (08:13→19:19)
[2018-07-10] MEDS: Cyanocobalamin (Vitamin B12) 1,000 MCG Tab PO SCH (08:13)
[2018-07-10] MEDS: Cholecalciferol (Vitamin D3) 25 MCG Tab PO SCH (08:14)
[2018-07-10] MEDS: buPROPion 100 MG Tab PO SCH (19:19)
[2018-07-10] MEDS: Simvastatin 10 MG Tab PO SCH (19:19)
[2018-07-10] MEDS: LEVOTHYROXINE SODIUM 137 MCG PO SCH (19:19)
[2018-07-10] MEDS: Clotrimazole 1% Crm 30 GM Tube TOP PRN (19:20)
[2018-07-11] MEDS: Albuterol/Ipratropium 3.0-0.5 MG/3 ML Neb Soln NEB SCH ×2 (08:11→19:13)
[2018-07-11] MEDS: Metoclopramide 10 MG Tab PO SCH ×2 (08:11→17:31)
[2018-07-11] MEDS: Citalopram 20 MG Tab PO SCH (08:11)
[2018-07-11] MEDS: Clotrimazole 1% Crm 30 GM Tube TOP PRN ×2 (08:12→19:15)
[2018-07-11] MEDS: Fludrocortisone 0.1 MG Tab PO SCH ×2 (08:12→19:13)
[2018-07-11] MEDS: Ibuprofen 600 MG Tab PO SCH ×2 (08:13→17:31)
[2018-07-11] MEDS: Furosemide 20 MG Tab PO SCH (08:13)
[2018-07-11] MEDS: Niacin 500 MG Tab PO SCH ×2 (08:13→17:32)
[2018-07-11] MEDS: Potassium Chloride 10% 20 MEQ/15 ML Soln 15 ML UD Cup PO SCH ×3 (08:13→19:14)
[2018-07-11] MEDS: Cholecalciferol (Vitamin D3) 25 MCG Tab PO SCH (08:14)
[2018-07-11] MEDS: Cyanocobalamin (Vitamin B12) 1,000 MCG Tab PO SCH (08:14)
[2018-07-11] MEDS: Simvastatin 10 MG Tab PO SCH (19:13)
[2018-07-11] MEDS: buPROPion 100 MG Tab PO SCH (19:13)
[2018-07-11] MEDS: LEVOTHYROXINE SODIUM 137 MCG PO SCH (19:13)
[2018-07-12] MEDS: Albuterol/Ipratropium 3.0-0.5 MG/3 ML Neb Soln NEB SCH ×2 (07:39→19:39)
[2018-07-12] MEDS: Furosemide 20 MG Tab PO SCH (07:39)
[2018-07-12] MEDS: Metoclopramide 10 MG Tab PO SCH ×2 (07:39→17:28)
[2018-07-12] MEDS: Fludrocortisone 0.1 MG Tab PO SCH ×2 (07:39→19:36)
[2018-07-12] MEDS: Citalopram 20 MG Tab PO SCH (07:39)
[2018-07-12] MEDS: Niacin 500 MG Tab PO SCH ×2 (07:40→17:29)
[2018-07-12] MEDS: Ibuprofen 600 MG Tab PO SCH ×2 (07:40→17:28)
[2018-07-12] MEDS: Cyanocobalamin (Vitamin B12) 1,000 MCG Tab PO SCH (07:41)
[2018-07-12] MEDS: Potassium Chloride 10% 20 MEQ/15 ML Soln 15 ML UD Cup PO SCH ×3 (07:41→19:37)
[2018-07-12] MEDS: Cholecalciferol (Vitamin D3) 25 MCG Tab PO SCH (07:42)
[2018-07-12] MEDS: Clotrimazole 1% Crm 30 GM Tube TOP PRN (07:43)
[2018-07-12] MEDS: LEVOTHYROXINE SODIUM 137 MCG PO SCH (19:36)
[2018-07-12] MEDS: Simvastatin 10 MG Tab PO SCH (19:38)
[2018-07-12] MEDS: buPROPion 100 MG Tab PO SCH (19:38)
[2018-07-13] MEDS: Fludrocortisone 0.1 MG Tab PO SCH ×2 (08:07→19:24)
[2018-07-13] MEDS: Citalopram 20 MG Tab PO SCH (08:07)
[2018-07-13] MEDS: Albuterol/Ipratropium 3.0-0.5 MG/3 ML Neb Soln NEB SCH ×2 (08:07→19:24)
[2018-07-13] MEDS: Furosemide 20 MG Tab PO SCH (08:07)
[2018-07-13] MEDS: Metoclopramide 10 MG Tab PO SCH ×2 (08:07→17:48)
[2018-07-13] MEDS: Niacin 500 MG Tab PO SCH ×2 (08:08→17:49)
[2018-07-13] MEDS: Ibuprofen 600 MG Tab PO SCH ×2 (08:08→17:48)
[2018-07-13] MEDS: Potassium Chloride 10% 20 MEQ/15 ML Soln 15 ML UD Cup PO SCH ×3 (08:09→19:25)
[2018-07-13] MEDS: Cyanocobalamin (Vitamin B12) 1,000 MCG Tab PO SCH (08:09)
[2018-07-13] MEDS: Cholecalciferol (Vitamin D3) 25 MCG Tab PO SCH (08:09)
[2018-07-13] MEDS: Clotrimazole 1% Crm 30 GM Tube TOP PRN (08:18)
[2018-07-13] MEDS: LEVOTHYROXINE SODIUM 137 MCG PO SCH (19:24)
[2018-07-13] MEDS: buPROPion 100 MG Tab PO SCH (19:25)
[2018-07-13] MEDS: Simvastatin 10 MG Tab PO SCH (19:25)
[2018-07-14] MEDS: Metoclopramide 10 MG Tab PO SCH ×2 (07:55→17:49)
[2018-07-14] MEDS: Fludrocortisone 0.1 MG Tab PO SCH ×2 (07:55→19:41)
[2018-07-14] MEDS: Citalopram 20 MG Tab PO SCH (07:55)
[2018-07-14] MEDS: Albuterol/Ipratropium 3.0-0.5 MG/3 ML Neb Soln NEB SCH ×2 (07:55→19:41)
[2018-07-14] MEDS: Furosemide 20 MG Tab PO SCH (07:56)
[2018-07-14] MEDS: Ibuprofen 600 MG Tab PO SCH ×2 (07:56→17:49)
[2018-07-14] MEDS: Niacin 500 MG Tab PO SCH ×2 (07:57→17:49)
[2018-07-14] MEDS: Potassium Chloride 10% 20 MEQ/15 ML Soln 15 ML UD Cup PO SCH ×3 (07:57→19:41)
[2018-07-14] MEDS: Cholecalciferol (Vitamin D3) 25 MCG Tab PO SCH (07:58)
[2018-07-14] MEDS: Cyanocobalamin (Vitamin B12) 1,000 MCG Tab PO SCH (07:58)
[2018-07-14] MEDS: LEVOTHYROXINE SODIUM 137 MCG PO SCH (19:41)
[2018-07-14] MEDS: buPROPion 100 MG Tab PO SCH (19:42)
[2018-07-14] MEDS: Simvastatin 10 MG Tab PO SCH (19:42)
[2018-07-15] MEDS: Citalopram 20 MG Tab PO SCH (08:10)
[2018-07-15] MEDS: Fludrocortisone 0.1 MG Tab PO SCH ×2 (08:10→19:21)
[2018-07-15] MEDS: Metoclopramide 10 MG Tab PO SCH ×2 (08:10→18:12)
[2018-07-15] MEDS: Furosemide 20 MG Tab PO SCH (08:11)
[2018-07-15] MEDS: Niacin 500 MG Tab PO SCH ×2 (08:11→18:12)
[2018-07-15] MEDS: Albuterol/Ipratropium 3.0-0.5 MG/3 ML Neb Soln NEB SCH ×2 (08:11→19:22)
[2018-07-15] MEDS: Ibuprofen 600 MG Tab PO SCH ×2 (08:11→18:12)
[2018-07-15] MEDS: Cholecalciferol (Vitamin D3) 25 MCG Tab PO SCH (08:12)
[2018-07-15] MEDS: Potassium Chloride 10% 20 MEQ/15 ML Soln 15 ML UD Cup PO SCH ×3 (08:13→19:22)
[2018-07-15] MEDS: Cyanocobalamin (Vitamin B12) 1,000 MCG Tab PO SCH (08:14)
[2018-07-15] MEDS: Simvastatin 10 MG Tab PO SCH (19:21)
[2018-07-15] MEDS: buPROPion 100 MG Tab PO SCH (19:21)
[2018-07-15] MEDS: LEVOTHYROXINE SODIUM 137 MCG PO SCH (19:33)
[2018-07-16] MEDS: Furosemide 20 MG Tab PO SCH (08:04)
[2018-07-16] MEDS: Fludrocortisone 0.1 MG Tab PO SCH ×2 (08:04→19:34)
[2018-07-16] MEDS: Ibuprofen 600 MG Tab PO SCH ×2 (08:04→17:47)
[2018-07-16] MEDS: Metoclopramide 10 MG Tab PO SCH ×2 (08:04→17:47)
[2018-07-16] MEDS: Citalopram 20 MG Tab PO SCH (08:04)
[2018-07-16] MEDS: Potassium Chloride 10% 20 MEQ/15 ML Soln 15 ML UD Cup PO SCH ×3 (08:05→19:33)
[2018-07-16] MEDS: Niacin 500 MG Tab PO SCH ×2 (08:05→17:48)
[2018-07-16] MEDS: Cholecalciferol (Vitamin D3) 25 MCG Tab PO SCH (08:06)
[2018-07-16] MEDS: Cyanocobalamin (Vitamin B12) 1,000 MCG Tab PO SCH (08:06)
[2018-07-16] MEDS: Albuterol/Ipratropium 3.0-0.5 MG/3 ML Neb Soln NEB SCH ×2 (08:14→19:34)
[2018-07-16] MEDS: LEVOTHYROXINE SODIUM 137 MCG PO SCH (19:34)
[2018-07-16] MEDS: Simvastatin 10 MG Tab PO SCH (19:34)
[2018-07-16] MEDS: buPROPion 100 MG Tab PO SCH (19:34)
[2018-07-17] MEDS: Metoclopramide 10 MG Tab PO SCH ×2 (08:28→17:59)
[2018-07-17] MEDS: Citalopram 20 MG Tab PO SCH (08:29)
[2018-07-17] MEDS: Albuterol/Ipratropium 3.0-0.5 MG/3 ML Neb Soln NEB SCH ×2 (08:30→20:03)
[2018-07-17] MEDS: Niacin 500 MG Tab PO SCH ×2 (08:31→18:00)
[2018-07-17] MEDS: Fludrocortisone 0.1 MG Tab PO SCH ×2 (08:31→20:04)
[2018-07-17] MEDS: Potassium Chloride 10% 20 MEQ/15 ML Soln 15 ML UD Cup PO SCH ×3 (08:31→20:04)
[2018-07-17] MEDS: Furosemide 20 MG Tab PO SCH (08:31)
[2018-07-17] MEDS: Cholecalciferol (Vitamin D3) 25 MCG Tab PO SCH (08:32)
[2018-07-17] MEDS: Cyanocobalamin (Vitamin B12) 1,000 MCG Tab PO SCH (08:32)
[2018-07-17] MEDS: Ibuprofen 600 MG Tab PO SCH ×2 (08:33→17:59)
[2018-07-17] MEDS: LEVOTHYROXINE SODIUM 137 MCG PO SCH (20:04)
[2018-07-17] MEDS: buPROPion 100 MG Tab PO SCH (20:05)
[2018-07-17] MEDS: Simvastatin 10 MG Tab PO SCH (20:05)
[2018-07-18] MEDS: Citalopram 20 MG Tab PO SCH (08:16)
[2018-07-18] MEDS: Metoclopramide 10 MG Tab PO SCH ×2 (08:16→18:04)
[2018-07-18] MEDS: Furosemide 20 MG Tab PO SCH (08:17)
[2018-07-18] MEDS: Albuterol/Ipratropium 3.0-0.5 MG/3 ML Neb Soln NEB SCH ×2 (08:17→19:21)
[2018-07-18] MEDS: Ibuprofen 600 MG Tab PO SCH ×2 (08:17→18:05)
[2018-07-18] MEDS: Fludrocortisone 0.1 MG Tab PO SCH ×2 (08:17→19:21)
[2018-07-18] MEDS: Niacin 500 MG Tab PO SCH ×2 (08:18→18:05)
[2018-07-18] MEDS: Potassium Chloride 10% 20 MEQ/15 ML Soln 15 ML UD Cup PO SCH ×3 (08:18→19:22)
[2018-07-18] MEDS: Cholecalciferol (Vitamin D3) 25 MCG Tab PO SCH (08:19)
[2018-07-18] MEDS: Cyanocobalamin (Vitamin B12) 1,000 MCG Tab PO SCH (08:19)
[2018-07-18] MEDS: Clotrimazole 1% Crm 30 GM Tube TOP PRN (08:50)
[2018-07-18] MEDS: LEVOTHYROXINE SODIUM 137 MCG PO SCH (19:21)
[2018-07-18] MEDS: Simvastatin 10 MG Tab PO SCH (19:22)
[2018-07-18] MEDS: buPROPion 100 MG Tab PO SCH (19:22)
[2018-07-19] MEDS: Metoclopramide 10 MG Tab PO SCH ×2 (07:58→18:12)
[2018-07-19] MEDS: Citalopram 20 MG Tab PO SCH (07:58)
[2018-07-19] MEDS: Furosemide 20 MG Tab PO SCH (07:59)
[2018-07-19] MEDS: Fludrocortisone 0.1 MG Tab PO SCH ×2 (07:59→19:37)
[2018-07-19] MEDS: Ibuprofen 600 MG Tab PO SCH ×2 (07:59→18:12)
[2018-07-19] MEDS: Albuterol/Ipratropium 3.0-0.5 MG/3 ML Neb Soln NEB SCH ×2 (07:59→19:37)
[2018-07-19] MEDS: Potassium Chloride 10% 20 MEQ/15 ML Soln 15 ML UD Cup PO SCH ×3 (08:00→19:38)
[2018-07-19] MEDS: Niacin 500 MG Tab PO SCH ×2 (08:00→18:13)
[2018-07-19] MEDS: Cyanocobalamin (Vitamin B12) 1,000 MCG Tab PO SCH (08:01)
[2018-07-19] MEDS: Cholecalciferol (Vitamin D3) 25 MCG Tab PO SCH (08:02)
[2018-07-19] MEDS: LEVOTHYROXINE SODIUM 137 MCG PO SCH (19:38)
[2018-07-19] MEDS: buPROPion 100 MG Tab PO SCH (19:38)
[2018-07-19] MEDS: Simvastatin 10 MG Tab PO SCH (19:39)
[2018-07-20] MEDS: Fludrocortisone 0.1 MG Tab PO SCH ×2 (08:10→19:58)
[2018-07-20] MEDS: Citalopram 20 MG Tab PO SCH (08:10)
[2018-07-20] MEDS: Furosemide 20 MG Tab PO SCH (08:10)
[2018-07-20] MEDS: Metoclopramide 10 MG Tab PO SCH ×2 (08:10→17:55)
[2018-07-20] MEDS: Potassium Chloride 10% 20 MEQ/15 ML Soln 15 ML UD Cup PO SCH ×3 (08:11→19:58)
[2018-07-20] MEDS: Ibuprofen 600 MG Tab PO SCH ×2 (08:11→17:56)
[2018-07-20] MEDS: Cyanocobalamin (Vitamin B12) 1,000 MCG Tab PO SCH (08:12)
[2018-07-20] MEDS: Cholecalciferol (Vitamin D3) 25 MCG Tab PO SCH (08:12)
[2018-07-20] MEDS: Niacin 500 MG Tab PO SCH ×2 (08:12→17:56)
[2018-07-20] MEDS: Albuterol/Ipratropium 3.0-0.5 MG/3 ML Neb Soln NEB SCH ×2 (08:13→19:57)
[2018-07-20] MEDS: LEVOTHYROXINE SODIUM 137 MCG PO SCH (19:58)
[2018-07-20] MEDS: buPROPion 100 MG Tab PO SCH (19:59)
[2018-07-20] MEDS: Simvastatin 10 MG Tab PO SCH (20:01)
[2018-07-21] MEDS: Potassium Chloride 10% 20 MEQ/15 ML Soln 15 ML UD Cup PO SCH ×3 (08:11→19:09)
[2018-07-21] MEDS: Albuterol/Ipratropium 3.0-0.5 MG/3 ML Neb Soln NEB SCH ×2 (08:12→19:10)
[2018-07-21] MEDS: Furosemide 20 MG Tab PO SCH (08:12)
[2018-07-21] MEDS: Ibuprofen 600 MG Tab PO SCH ×2 (08:12→17:10)
[2018-07-21] MEDS: Metoclopramide 10 MG Tab PO SCH ×2 (08:12→17:10)
[2018-07-21] MEDS: Citalopram 20 MG Tab PO SCH (08:12)
[2018-07-21] MEDS: Fludrocortisone 0.1 MG Tab PO SCH ×2 (08:12→19:08)
[2018-07-21] MEDS: Niacin 500 MG Tab PO SCH ×2 (08:13→17:10)
[2018-07-21] MEDS: Cyanocobalamin (Vitamin B12) 1,000 MCG Tab PO SCH (08:13)
[2018-07-21] MEDS: Cholecalciferol (Vitamin D3) 25 MCG Tab PO SCH (08:13)
[2018-07-21] MEDS: LEVOTHYROXINE SODIUM 137 MCG PO SCH (19:08)
[2018-07-21] MEDS: buPROPion 100 MG Tab PO SCH (19:09)
[2018-07-21] MEDS: Simvastatin 10 MG Tab PO SCH (19:09)
[2018-07-22] MEDS: Metoclopramide 10 MG Tab PO SCH ×2 (07:49→17:53)
[2018-07-22] MEDS: Fludrocortisone 0.1 MG Tab PO SCH ×2 (07:49→19:35)
[2018-07-22] MEDS: Citalopram 20 MG Tab PO SCH (07:49)
[2018-07-22] MEDS: Ibuprofen 600 MG Tab PO SCH ×2 (07:50→17:53)
[2018-07-22] MEDS: Furosemide 20 MG Tab PO SCH (07:50)
[2018-07-22] MEDS: Niacin 500 MG Tab PO SCH ×2 (07:50→17:54)
[2018-07-22] MEDS: Potassium Chloride 10% 20 MEQ/15 ML Soln 15 ML UD Cup PO SCH ×3 (07:51→19:36)
[2018-07-22] MEDS: Cyanocobalamin (Vitamin B12) 1,000 MCG Tab PO SCH (07:52)
[2018-07-22] MEDS: Cholecalciferol (Vitamin D3) 25 MCG Tab PO SCH (07:52)
[2018-07-22] MEDS: Albuterol/Ipratropium 3.0-0.5 MG/3 ML Neb Soln NEB SCH ×2 (07:53→19:35)
[2018-07-22] MEDS: Simvastatin 10 MG Tab PO SCH (19:35)
[2018-07-22] MEDS: LEVOTHYROXINE SODIUM 137 MCG PO SCH (19:35)
[2018-07-22] MEDS: buPROPion 100 MG Tab PO SCH (19:35)
[2018-07-23] MEDS: Albuterol/Ipratropium 3.0-0.5 MG/3 ML Neb Soln NEB SCH ×2 (07:35→19:40)
[2018-07-23] MEDS: Citalopram 20 MG Tab PO SCH (07:35)
[2018-07-23] MEDS: Metoclopramide 10 MG Tab PO SCH ×2 (07:35→17:41)
[2018-07-23] MEDS: Ibuprofen 600 MG Tab PO SCH ×2 (07:36→17:41)
[2018-07-23] MEDS: Fludrocortisone 0.1 MG Tab PO SCH ×2 (07:36→19:40)
[2018-07-23] MEDS: Niacin 500 MG Tab PO SCH ×2 (07:36→17:41)
[2018-07-23] MEDS: Furosemide 20 MG Tab PO SCH (07:36)
[2018-07-23] MEDS: Potassium Chloride 10% 20 MEQ/15 ML Soln 15 ML UD Cup PO SCH ×3 (07:37→19:41)
[2018-07-23] MEDS: Cyanocobalamin (Vitamin B12) 1,000 MCG Tab PO SCH (07:37)
[2018-07-23] MEDS: Cholecalciferol (Vitamin D3) 25 MCG Tab PO SCH (07:38)
[2018-07-23] MEDS: LEVOTHYROXINE SODIUM 137 MCG PO SCH (19:40)
[2018-07-23] MEDS: buPROPion 100 MG Tab PO SCH (19:41)
[2018-07-23] MEDS: Simvastatin 10 MG Tab PO SCH (19:42)
[2018-07-23] MEDS: Gentian Violet 59 ML Bottle TOP PRN (21:42)
[2018-07-24] MEDS: Albuterol/Ipratropium 3.0-0.5 MG/3 ML Neb Soln NEB SCH ×2 (07:50→19:17)
[2018-07-24] MEDS: Citalopram 20 MG Tab PO SCH (07:50)
[2018-07-24] MEDS: Metoclopramide 10 MG Tab PO SCH ×2 (07:50→17:39)
[2018-07-24] MEDS: Fludrocortisone 0.1 MG Tab PO SCH ×2 (07:50→19:17)
[2018-07-24] MEDS: Ibuprofen 600 MG Tab PO SCH ×2 (07:51→17:39)
[2018-07-24] MEDS: Potassium Chloride 10% 20 MEQ/15 ML Soln 15 ML UD Cup PO SCH ×3 (07:51→19:16)
[2018-07-24] MEDS: Niacin 500 MG Tab PO SCH ×2 (07:51→17:40)
[2018-07-24] MEDS: Furosemide 20 MG Tab PO SCH (07:51)
[2018-07-24] MEDS: Cholecalciferol (Vitamin D3) 25 MCG Tab PO SCH (07:52)
[2018-07-24] MEDS: Cyanocobalamin (Vitamin B12) 1,000 MCG Tab PO SCH (07:52)
[2018-07-24] MEDS: traMADol 50 MG Tab PO PRN (10:13)
[2018-07-24] MEDS: buPROPion 100 MG Tab PO SCH (19:16)
[2018-07-24] MEDS: LEVOTHYROXINE SODIUM 137 MCG PO SCH (19:16)
[2018-07-24] MEDS: Simvastatin 10 MG Tab PO SCH (19:16)
[2018-07-24] MEDS: Gentian Violet 59 ML Bottle TOP PRN (19:49)
[2018-07-25] MEDS: Citalopram 20 MG Tab PO SCH (07:28)
[2018-07-25] MEDS: Metoclopramide 10 MG Tab PO SCH ×2 (07:28→17:25)
[2018-07-25] MEDS: Furosemide 20 MG Tab PO SCH (07:28)
[2018-07-25] MEDS: Albuterol/Ipratropium 3.0-0.5 MG/3 ML Neb Soln NEB SCH ×2 (07:28→19:11)
[2018-07-25] MEDS: Fludrocortisone 0.1 MG Tab PO SCH ×2 (07:28→19:11)
[2018-07-25] MEDS: Ibuprofen 600 MG Tab PO SCH ×2 (07:28→17:25)
[2018-07-25] MEDS: Niacin 500 MG Tab PO SCH ×2 (07:29→17:25)
[2018-07-25] MEDS: Potassium Chloride 10% 20 MEQ/15 ML Soln 15 ML UD Cup PO SCH ×3 (07:29→19:11)
[2018-07-25] MEDS: Cyanocobalamin (Vitamin B12) 1,000 MCG Tab PO SCH (07:29)
[2018-07-25] MEDS: Cholecalciferol (Vitamin D3) 25 MCG Tab PO SCH (07:30)
[2018-07-25] MEDS: Simvastatin 10 MG Tab PO SCH (19:11)
[2018-07-25] MEDS: buPROPion 100 MG Tab PO SCH (19:11)
[2018-07-25] MEDS: LEVOTHYROXINE SODIUM 137 MCG PO SCH (19:11)
[2018-07-26] MEDS: Fludrocortisone 0.1 MG Tab PO SCH ×2 (07:16→19:50)
[2018-07-26] MEDS: Furosemide 20 MG Tab PO SCH (07:16)
[2018-07-26] MEDS: Albuterol/Ipratropium 3.0-0.5 MG/3 ML Neb Soln NEB SCH ×2 (07:16→19:49)
[2018-07-26] MEDS: Metoclopramide 10 MG Tab PO SCH ×2 (07:16→17:24)
[2018-07-26] MEDS: Citalopram 20 MG Tab PO SCH (07:16)
[2018-07-26] MEDS: Ibuprofen 600 MG Tab PO SCH ×2 (07:16→17:24)
[2018-07-26] MEDS: Niacin 500 MG Tab PO SCH ×2 (07:17→17:24)
[2018-07-26] MEDS: Potassium Chloride 10% 20 MEQ/15 ML Soln 15 ML UD Cup PO SCH ×3 (07:17→19:51)
[2018-07-26] MEDS: Cyanocobalamin (Vitamin B12) 1,000 MCG Tab PO SCH (07:18)
[2018-07-26] MEDS: Cholecalciferol (Vitamin D3) 25 MCG Tab PO SCH (07:18)
[2018-07-26] MEDS: LEVOTHYROXINE SODIUM 137 MCG PO SCH (19:50)
[2018-07-26] MEDS: buPROPion 100 MG Tab PO SCH (19:52)
[2018-07-26] MEDS: Simvastatin 10 MG Tab PO SCH (19:52)
[2018-07-27] MEDS: Potassium Chloride 10% 20 MEQ/15 ML Soln 15 ML UD Cup PO SCH ×3 (08:00→19:20)
[2018-07-27] MEDS: Albuterol/Ipratropium 3.0-0.5 MG/3 ML Neb Soln NEB SCH ×2 (08:01→19:20)
[2018-07-27] MEDS: Fludrocortisone 0.1 MG Tab PO SCH ×2 (08:01→19:20)
[2018-07-27] MEDS: Metoclopramide 10 MG Tab PO SCH ×2 (08:01→17:17)
[2018-07-27] MEDS: Furosemide 20 MG Tab PO SCH (08:01)
[2018-07-27] MEDS: Ibuprofen 600 MG Tab PO SCH ×2 (08:01→17:17)
[2018-07-27] MEDS: Citalopram 20 MG Tab PO SCH (08:01)
[2018-07-27] MEDS: Cyanocobalamin (Vitamin B12) 1,000 MCG Tab PO SCH (08:02)
[2018-07-27] MEDS: Niacin 500 MG Tab PO SCH ×2 (08:02→17:17)
[2018-07-27] MEDS: Cholecalciferol (Vitamin D3) 25 MCG Tab PO SCH (08:03)
[2018-07-27] MEDS: LEVOTHYROXINE SODIUM 137 MCG PO SCH (19:20)
[2018-07-27] MEDS: buPROPion 100 MG Tab PO SCH (19:21)
[2018-07-27] MEDS: Simvastatin 10 MG Tab PO SCH (19:21)
[2018-07-28] MEDS: Potassium Chloride 10% 20 MEQ/15 ML Soln 15 ML UD Cup PO SCH ×3 (07:21→19:23)
[2018-07-28] MEDS: Metoclopramide 10 MG Tab PO SCH ×2 (07:22→17:14)
[2018-07-28] MEDS: Citalopram 20 MG Tab PO SCH (07:22)
[2018-07-28] MEDS: Ibuprofen 600 MG Tab PO SCH ×2 (07:22→17:14)
[2018-07-28] MEDS: Fludrocortisone 0.1 MG Tab PO SCH ×2 (07:22→19:22)
[2018-07-28] MEDS: Albuterol/Ipratropium 3.0-0.5 MG/3 ML Neb Soln NEB SCH ×2 (07:22→19:22)
[2018-07-28] MEDS: Furosemide 20 MG Tab PO SCH (07:22)
[2018-07-28] MEDS: Cholecalciferol (Vitamin D3) 25 MCG Tab PO SCH (07:23)
[2018-07-28] MEDS: Niacin 500 MG Tab PO SCH ×2 (07:23→17:14)
[2018-07-28] MEDS: Cyanocobalamin (Vitamin B12) 1,000 MCG Tab PO SCH (07:23)
[2018-07-28] MEDS: LEVOTHYROXINE SODIUM 137 MCG PO SCH (19:22)
[2018-07-28] MEDS: Simvastatin 10 MG Tab PO SCH (19:23)
[2018-07-28] MEDS: buPROPion 100 MG Tab PO SCH (19:23)
[2018-07-29] MEDS: Metoclopramide 10 MG Tab PO SCH ×2 (07:35→17:18)
[2018-07-29] MEDS: Citalopram 20 MG Tab PO SCH (07:35)
[2018-07-29] MEDS: Ibuprofen 600 MG Tab PO SCH ×2 (07:36→17:18)
[2018-07-29] MEDS: Niacin 500 MG Tab PO SCH ×2 (07:36→17:18)
[2018-07-29] MEDS: Furosemide 20 MG Tab PO SCH (07:36)
[2018-07-29] MEDS: Fludrocortisone 0.1 MG Tab PO SCH ×2 (07:36→19:30)
[2018-07-29] MEDS: Albuterol/Ipratropium 3.0-0.5 MG/3 ML Neb Soln NEB SCH ×2 (07:36→19:30)
[2018-07-29] MEDS: Cholecalciferol (Vitamin D3) 25 MCG Tab PO SCH (07:37)
[2018-07-29] MEDS: Cyanocobalamin (Vitamin B12) 1,000 MCG Tab PO SCH (07:37)
[2018-07-29] MEDS: Potassium Chloride 10% 20 MEQ/15 ML Soln 15 ML UD Cup PO SCH ×3 (07:37→19:31)
[2018-07-29] MEDS: Simvastatin 10 MG Tab PO SCH (19:30)
[2018-07-29] MEDS: LEVOTHYROXINE SODIUM 137 MCG PO SCH (19:30)
[2018-07-29] MEDS: buPROPion 100 MG Tab PO SCH (19:30)
[2018-07-30] MEDS: Metoclopramide 10 MG Tab PO SCH ×2 (08:12→18:11)
[2018-07-30] MEDS: Albuterol/Ipratropium 3.0-0.5 MG/3 ML Neb Soln NEB SCH ×2 (08:12→19:34)
[2018-07-30] MEDS: Citalopram 20 MG Tab PO SCH (08:13)
[2018-07-30] MEDS: Potassium Chloride 10% 20 MEQ/15 ML Soln 15 ML UD Cup PO SCH ×3 (08:13→19:36)
[2018-07-30] MEDS: Ibuprofen 600 MG Tab PO SCH ×2 (08:13→18:11)
[2018-07-30] MEDS: Furosemide 20 MG Tab PO SCH (08:13)
[2018-07-30] MEDS: Fludrocortisone 0.1 MG Tab PO SCH ×2 (08:13→19:35)
[2018-07-30] MEDS: Niacin 500 MG Tab PO SCH ×2 (08:14→18:11)
[2018-07-30] MEDS: Cyanocobalamin (Vitamin B12) 1,000 MCG Tab PO SCH (08:14)
[2018-07-30] MEDS: Cholecalciferol (Vitamin D3) 25 MCG Tab PO SCH (08:15)
[2018-07-30] MEDS: LEVOTHYROXINE SODIUM 137 MCG PO SCH (19:35)
[2018-07-30] MEDS: buPROPion 100 MG Tab PO SCH (19:36)
[2018-07-30] MEDS: Simvastatin 10 MG Tab PO SCH (19:37)
[2018-07-31] MEDS: Albuterol/Ipratropium 3.0-0.5 MG/3 ML Neb Soln NEB SCH ×2 (07:41→19:13)
[2018-07-31] MEDS: Metoclopramide 10 MG Tab PO SCH ×2 (07:41→17:36)
[2018-07-31] MEDS: Citalopram 20 MG Tab PO SCH (07:41)
[2018-07-31] MEDS: Furosemide 20 MG Tab PO SCH (07:42)
[2018-07-31] MEDS: Fludrocortisone 0.1 MG Tab PO SCH ×2 (07:42→19:12)
[2018-07-31] MEDS: Ibuprofen 600 MG Tab PO SCH ×2 (07:42→17:36)
[2018-07-31] MEDS: Niacin 500 MG Tab PO SCH ×2 (07:42→17:36)
[2018-07-31] MEDS: Cyanocobalamin (Vitamin B12) 1,000 MCG Tab PO SCH (07:42)
[2018-07-31] MEDS: Cholecalciferol (Vitamin D3) 25 MCG Tab PO SCH (07:43)
[2018-07-31] MEDS: Potassium Chloride 10% 20 MEQ/15 ML Soln 15 ML UD Cup PO SCH ×3 (07:44→19:13)
[2018-07-31] MEDS: LEVOTHYROXINE SODIUM 137 MCG PO SCH (19:12)
[2018-07-31] MEDS: buPROPion 100 MG Tab PO SCH (19:12)
[2018-07-31] MEDS: Simvastatin 10 MG Tab PO SCH (19:13)
[2018-08-01] MEDS: Metoclopramide 10 MG Tab PO SCH ×2 (08:03→17:21)
[2018-08-01] MEDS: Citalopram 20 MG Tab PO SCH (08:03)
[2018-08-01] MEDS: Albuterol/Ipratropium 3.0-0.5 MG/3 ML Neb Soln NEB SCH ×2 (08:04→19:17)
[2018-08-01] MEDS: Fludrocortisone 0.1 MG Tab PO SCH ×2 (08:04→19:16)
[2018-08-01] MEDS: Ibuprofen 600 MG Tab PO SCH ×2 (08:04→17:21)
[2018-08-01] MEDS: Niacin 500 MG Tab PO SCH ×2 (08:04→17:22)
[2018-08-01] MEDS: Furosemide 20 MG Tab PO SCH (08:04)
[2018-08-01] MEDS: Cholecalciferol (Vitamin D3) 25 MCG Tab PO SCH (08:05)
[2018-08-01] MEDS: Cyanocobalamin (Vitamin B12) 1,000 MCG Tab PO SCH (08:05)
[2018-08-01] MEDS: Potassium Chloride 10% 20 MEQ/15 ML Soln 15 ML UD Cup PO SCH ×3 (08:06→19:15)
[2018-08-01] MEDS: Simvastatin 10 MG Tab PO SCH (19:15)
[2018-08-01] MEDS: buPROPion 100 MG Tab PO SCH (19:15)
[2018-08-01] MEDS: LEVOTHYROXINE SODIUM 137 MCG PO SCH (19:15)
[2018-08-02] MEDS: Albuterol/Ipratropium 3.0-0.5 MG/3 ML Neb Soln NEB SCH ×2 (07:30→19:13)
[2018-08-02] MEDS: Fludrocortisone 0.1 MG Tab PO SCH ×2 (07:30→19:11)
[2018-08-02] MEDS: Metoclopramide 10 MG Tab PO SCH ×2 (07:30→17:34)
[2018-08-02] MEDS: Citalopram 20 MG Tab PO SCH (07:30)
[2018-08-02] MEDS: Ibuprofen 600 MG Tab PO SCH ×2 (07:31→17:34)
[2018-08-02] MEDS: Furosemide 20 MG Tab PO SCH (07:31)
[2018-08-02] MEDS: Niacin 500 MG Tab PO SCH ×2 (07:31→17:34)
[2018-08-02] MEDS: Cyanocobalamin (Vitamin B12) 1,000 MCG Tab PO SCH (07:31)
[2018-08-02] MEDS: Cholecalciferol (Vitamin D3) 25 MCG Tab PO SCH (07:32)
[2018-08-02] MEDS: Potassium Chloride 10% 20 MEQ/15 ML Soln 15 ML UD Cup PO SCH ×3 (07:33→19:12)
[2018-08-02] MEDS: LEVOTHYROXINE SODIUM 137 MCG PO SCH (19:12)
[2018-08-02] MEDS: buPROPion 100 MG Tab PO SCH (19:12)
[2018-08-02] MEDS: Simvastatin 10 MG Tab PO SCH (19:12)
[2018-08-03] MEDS: Metoclopramide 10 MG Tab PO SCH ×2 (07:41→17:07)
[2018-08-03] MEDS: Furosemide 20 MG Tab PO SCH (07:41)
[2018-08-03] MEDS: Citalopram 20 MG Tab PO SCH (07:41)
[2018-08-03] MEDS: Albuterol/Ipratropium 3.0-0.5 MG/3 ML Neb Soln NEB SCH ×2 (07:41→19:27)
[2018-08-03] MEDS: Fludrocortisone 0.1 MG Tab PO SCH ×2 (07:41→19:27)
[2018-08-03] MEDS: Potassium Chloride 10% 20 MEQ/15 ML Soln 15 ML UD Cup PO SCH ×3 (07:42→19:28)
[2018-08-03] MEDS: Ibuprofen 600 MG Tab PO SCH ×2 (07:42→17:07)
[2018-08-03] MEDS: Niacin 500 MG Tab PO SCH ×2 (07:42→17:07)
[2018-08-03] MEDS: Cholecalciferol (Vitamin D3) 25 MCG Tab PO SCH (07:43)
[2018-08-03] MEDS: Cyanocobalamin (Vitamin B12) 1,000 MCG Tab PO SCH (07:43)
[2018-08-03] MEDS: LEVOTHYROXINE SODIUM 137 MCG PO SCH (19:27)
[2018-08-03] MEDS: buPROPion 100 MG Tab PO SCH (19:28)
[2018-08-03] MEDS: Simvastatin 10 MG Tab PO SCH (19:28)
[2018-08-04] MEDS: Fludrocortisone 0.1 MG Tab PO SCH ×2 (07:36→19:34)
[2018-08-04] MEDS: Citalopram 20 MG Tab PO SCH (07:36)
[2018-08-04] MEDS: Albuterol/Ipratropium 3.0-0.5 MG/3 ML Neb Soln NEB SCH ×2 (07:36→19:34)
[2018-08-04] MEDS: Metoclopramide 10 MG Tab PO SCH ×2 (07:36→17:16)
[2018-08-04] MEDS: Ibuprofen 600 MG Tab PO SCH ×2 (07:37→17:16)
[2018-08-04] MEDS: Furosemide 20 MG Tab PO SCH (07:37)
[2018-08-04] MEDS: Niacin 500 MG Tab PO SCH ×2 (07:37→17:17)
[2018-08-04] MEDS: Cholecalciferol (Vitamin D3) 25 MCG Tab PO SCH (07:38)
[2018-08-04] MEDS: Cyanocobalamin (Vitamin B12) 1,000 MCG Tab PO SCH (07:38)
[2018-08-04] MEDS: Potassium Chloride 10% 20 MEQ/15 ML Soln 15 ML UD Cup PO SCH ×3 (07:38→19:35)
[2018-08-04] MEDS: LEVOTHYROXINE SODIUM 137 MCG PO SCH (19:35)
[2018-08-04] MEDS: Simvastatin 10 MG Tab PO SCH (19:36)
[2018-08-04] MEDS: buPROPion 100 MG Tab PO SCH (19:36)
[2018-08-05] MEDS: Citalopram 20 MG Tab PO SCH (07:42)
[2018-08-05] MEDS: Fludrocortisone 0.1 MG Tab PO SCH ×2 (07:42→19:11)
[2018-08-05] MEDS: Albuterol/Ipratropium 3.0-0.5 MG/3 ML Neb Soln NEB SCH ×2 (07:42→19:11)
[2018-08-05] MEDS: Metoclopramide 10 MG Tab PO SCH ×2 (07:42→17:30)
[2018-08-05] MEDS: Cyanocobalamin (Vitamin B12) 1,000 MCG Tab PO SCH (07:43)
[2018-08-05] MEDS: Niacin 500 MG Tab PO SCH ×2 (07:43→17:58)
[2018-08-05] MEDS: Furosemide 20 MG Tab PO SCH (07:43)
[2018-08-05] MEDS: Ibuprofen 600 MG Tab PO SCH ×2 (07:43→17:58)
[2018-08-05] MEDS: Cholecalciferol (Vitamin D3) 25 MCG Tab PO SCH (07:44)
[2018-08-05] MEDS: Potassium Chloride 10% 20 MEQ/15 ML Soln 15 ML UD Cup PO SCH ×3 (07:45→19:13)
[2018-08-05] MEDS: LEVOTHYROXINE SODIUM 137 MCG PO SCH (19:11)
[2018-08-05] MEDS: buPROPion 100 MG Tab PO SCH (19:12)
[2018-08-05] MEDS: Simvastatin 10 MG Tab PO SCH (19:12)
[2018-08-06] MEDS: Metoclopramide 10 MG Tab PO SCH ×2 (07:43→17:08)
[2018-08-06] MEDS: Albuterol/Ipratropium 3.0-0.5 MG/3 ML Neb Soln NEB SCH ×2 (07:44→19:19)
[2018-08-06] MEDS: Ibuprofen 600 MG Tab PO SCH ×2 (07:44→17:08)
[2018-08-06] MEDS: Fludrocortisone 0.1 MG Tab PO SCH ×2 (07:44→19:20)
[2018-08-06] MEDS: Furosemide 20 MG Tab PO SCH (07:44)
[2018-08-06] MEDS: Citalopram 20 MG Tab PO SCH (07:44)
[2018-08-06] MEDS: Niacin 500 MG Tab PO SCH ×2 (07:45→17:09)
[2018-08-06] MEDS: Potassium Chloride 10% 20 MEQ/15 ML Soln 15 ML UD Cup PO SCH ×3 (07:45→19:20)
[2018-08-06] MEDS: Cholecalciferol (Vitamin D3) 25 MCG Tab PO SCH (07:46)
[2018-08-06] MEDS: Cyanocobalamin (Vitamin B12) 1,000 MCG Tab PO SCH (07:46)
[2018-08-06] MEDS: LEVOTHYROXINE SODIUM 137 MCG PO SCH (19:20)
[2018-08-06] MEDS: Simvastatin 10 MG Tab PO SCH (19:22)
[2018-08-06] MEDS: buPROPion 100 MG Tab PO SCH (19:22)
[2018-08-07] MEDS: Metoclopramide 10 MG Tab PO SCH ×2 (08:12→17:39)
[2018-08-07] MEDS: Citalopram 20 MG Tab PO SCH (08:12)
[2018-08-07] MEDS: Fludrocortisone 0.1 MG Tab PO SCH ×2 (08:12→19:34)
[2018-08-07] MEDS: Albuterol/Ipratropium 3.0-0.5 MG/3 ML Neb Soln NEB SCH ×2 (08:12→19:34)
[2018-08-07] MEDS: Furosemide 20 MG Tab PO SCH (08:13)
[2018-08-07] MEDS: Niacin 500 MG Tab PO SCH ×2 (08:13→17:40)
[2018-08-07] MEDS: Ibuprofen 600 MG Tab PO SCH ×2 (08:13→17:39)
[2018-08-07] MEDS: Cyanocobalamin (Vitamin B12) 1,000 MCG Tab PO SCH (08:14)
[2018-08-07] MEDS: Potassium Chloride 10% 20 MEQ/15 ML Soln 15 ML UD Cup PO SCH ×3 (08:14→19:35)
[2018-08-07] MEDS: Cholecalciferol (Vitamin D3) 25 MCG Tab PO SCH (08:15)
[2018-08-07] MEDS: LEVOTHYROXINE SODIUM 137 MCG PO SCH (19:34)
[2018-08-07] MEDS: Simvastatin 10 MG Tab PO SCH (19:36)
[2018-08-07] MEDS: buPROPion 100 MG Tab PO SCH (19:36)
[2018-08-07] MEDS: Acetaminophen 325 MG Tab PO PRN (19:37)
[2018-08-08] MEDS: Metoclopramide 10 MG Tab PO SCH ×2 (07:55→17:31)
[2018-08-08] MEDS: Citalopram 20 MG Tab PO SCH (07:55)
[2018-08-08] MEDS: Albuterol/Ipratropium 3.0-0.5 MG/3 ML Neb Soln NEB SCH ×2 (07:56→19:14)
[2018-08-08] MEDS: Fludrocortisone 0.1 MG Tab PO SCH ×2 (07:56→19:15)
[2018-08-08] MEDS: Ibuprofen 600 MG Tab PO SCH ×2 (07:56→17:31)
[2018-08-08] MEDS: Furosemide 20 MG Tab PO SCH (07:56)
[2018-08-08] MEDS: Potassium Chloride 10% 20 MEQ/15 ML Soln 15 ML UD Cup PO SCH ×3 (08:00→19:15)
[2018-08-08] MEDS: Niacin 500 MG Tab PO SCH ×2 (08:00→17:32)
[2018-08-08] MEDS: Cholecalciferol (Vitamin D3) 25 MCG Tab PO SCH (08:01)
[2018-08-08] MEDS: Cyanocobalamin (Vitamin B12) 1,000 MCG Tab PO SCH (08:01)
[2018-08-08] MEDS: LEVOTHYROXINE SODIUM 137 MCG PO SCH (19:15)
[2018-08-08] MEDS: Simvastatin 10 MG Tab PO SCH (19:16)
[2018-08-08] MEDS: buPROPion 100 MG Tab PO SCH (19:16)
[2018-08-09] MEDS: Fludrocortisone 0.1 MG Tab PO SCH ×2 (08:04→19:23)
[2018-08-09] MEDS: Metoclopramide 10 MG Tab PO SCH ×2 (08:04→18:05)
[2018-08-09] MEDS: Citalopram 20 MG Tab PO SCH (08:04)
[2018-08-09] MEDS: Albuterol/Ipratropium 3.0-0.5 MG/3 ML Neb Soln NEB SCH ×2 (08:04→19:22)
[2018-08-09] MEDS: Furosemide 20 MG Tab PO SCH (08:04)
[2018-08-09] MEDS: Ibuprofen 600 MG Tab PO SCH ×2 (08:05→18:05)
[2018-08-09] MEDS: Niacin 500 MG Tab PO SCH ×2 (08:05→18:05)
[2018-08-09] MEDS: Potassium Chloride 10% 20 MEQ/15 ML Soln 15 ML UD Cup PO SCH ×3 (08:05→19:23)
[2018-08-09] MEDS: Cyanocobalamin (Vitamin B12) 1,000 MCG Tab PO SCH (08:06)
[2018-08-09] MEDS: Cholecalciferol (Vitamin D3) 25 MCG Tab PO SCH (08:06)
[2018-08-09] MEDS: LEVOTHYROXINE SODIUM 137 MCG PO SCH (19:23)
[2018-08-09] MEDS: Simvastatin 10 MG Tab PO SCH (19:24)
[2018-08-09] MEDS: buPROPion 100 MG Tab PO SCH (19:24)
[2018-08-10] MEDS: Albuterol/Ipratropium 3.0-0.5 MG/3 ML Neb Soln NEB SCH ×2 (07:18→19:27)
[2018-08-10] MEDS: Metoclopramide 10 MG Tab PO SCH ×2 (07:18→17:30)
[2018-08-10] MEDS: Citalopram 20 MG Tab PO SCH (07:18)
[2018-08-10] MEDS: Fludrocortisone 0.1 MG Tab PO SCH ×2 (07:18→19:27)
[2018-08-10] MEDS: Furosemide 20 MG Tab PO SCH (07:18)
[2018-08-10] MEDS: Potassium Chloride 10% 20 MEQ/15 ML Soln 15 ML UD Cup PO SCH ×3 (07:19→19:28)
[2018-08-10] MEDS: Niacin 500 MG Tab PO SCH ×2 (07:19→17:30)
[2018-08-10] MEDS: Ibuprofen 600 MG Tab PO SCH ×2 (07:19→17:30)
[2018-08-10] MEDS: Cyanocobalamin (Vitamin B12) 1,000 MCG Tab PO SCH (07:20)
[2018-08-10] MEDS: Cholecalciferol (Vitamin D3) 25 MCG Tab PO SCH (07:20)
[2018-08-10] MEDS: Simvastatin 10 MG Tab PO SCH (19:28)
[2018-08-10] MEDS: LEVOTHYROXINE SODIUM 137 MCG PO SCH (19:28)
[2018-08-10] MEDS: buPROPion 100 MG Tab PO SCH (19:28)
[2018-08-11] MEDS: Metoclopramide 10 MG Tab PO SCH ×2 (08:19→17:38)
[2018-08-11] MEDS: Ibuprofen 600 MG Tab PO SCH ×2 (08:19→17:38)
[2018-08-11] MEDS: Fludrocortisone 0.1 MG Tab PO SCH ×2 (08:19→20:00)
[2018-08-11] MEDS: Citalopram 20 MG Tab PO SCH (08:19)
[2018-08-11] MEDS: Furosemide 20 MG Tab PO SCH (08:19)
[2018-08-11] MEDS: Albuterol/Ipratropium 3.0-0.5 MG/3 ML Neb Soln NEB SCH ×2 (08:19→20:00)
[2018-08-11] MEDS: Cyanocobalamin (Vitamin B12) 1,000 MCG Tab PO SCH (08:20)
[2018-08-11] MEDS: Cholecalciferol (Vitamin D3) 25 MCG Tab PO SCH (08:20)
[2018-08-11] MEDS: Niacin 500 MG Tab PO SCH ×2 (08:20→17:38)
[2018-08-11] MEDS: Potassium Chloride 10% 20 MEQ/15 ML Soln 15 ML UD Cup PO SCH ×3 (08:21→20:01)
[2018-08-11] MEDS: buPROPion 100 MG Tab PO SCH (20:00)
[2018-08-11] MEDS: LEVOTHYROXINE SODIUM 137 MCG PO SCH (20:00)
[2018-08-11] MEDS: Simvastatin 10 MG Tab PO SCH (20:00)
[2018-08-12] MEDS: Ibuprofen 600 MG Tab PO PRN (05:33)
[2018-08-12] MEDS: Metoclopramide 10 MG Tab PO SCH ×2 (07:55→17:32)
[2018-08-12] MEDS: Fludrocortisone 0.1 MG Tab PO SCH ×2 (07:56→19:11)
[2018-08-12] MEDS: Albuterol/Ipratropium 3.0-0.5 MG/3 ML Neb Soln NEB SCH ×2 (07:56→19:13)
[2018-08-12] MEDS: Furosemide 20 MG Tab PO SCH (07:56)
[2018-08-12] MEDS: Citalopram 20 MG Tab PO SCH (07:56)
[2018-08-12] MEDS: Niacin 500 MG Tab PO SCH ×2 (07:56→17:32)
[2018-08-12] MEDS: Potassium Chloride 10% 20 MEQ/15 ML Soln 15 ML UD Cup PO SCH ×3 (07:57→19:12)
[2018-08-12] MEDS: Cyanocobalamin (Vitamin B12) 1,000 MCG Tab PO SCH (07:57)
[2018-08-12] MEDS: Cholecalciferol (Vitamin D3) 25 MCG Tab PO SCH (07:58)
[2018-08-12] MEDS: Ibuprofen 600 MG Tab PO SCH ×2 (09:25→17:32)
[2018-08-12] MEDS: LEVOTHYROXINE SODIUM 137 MCG PO SCH (19:11)
[2018-08-12] MEDS: buPROPion 100 MG Tab PO SCH (19:11)
[2018-08-12] MEDS: Simvastatin 10 MG Tab PO SCH (19:12)
[2018-08-13] MEDS: Metoclopramide 10 MG Tab PO SCH ×2 (08:24→18:10)
[2018-08-13] MEDS: Citalopram 20 MG Tab PO SCH (08:24)
[2018-08-13] MEDS: Furosemide 20 MG Tab PO SCH (08:25)
[2018-08-13] MEDS: Fludrocortisone 0.1 MG Tab PO SCH ×2 (08:25→19:23)
[2018-08-13] MEDS: Albuterol/Ipratropium 3.0-0.5 MG/3 ML Neb Soln NEB SCH ×2 (08:25→19:23)
[2018-08-13] MEDS: Ibuprofen 600 MG Tab PO SCH ×2 (08:26→18:10)
[2018-08-13] MEDS: Niacin 500 MG Tab PO SCH ×2 (08:26→18:11)
[2018-08-13] MEDS: Cyanocobalamin (Vitamin B12) 1,000 MCG Tab PO SCH (08:27)
[2018-08-13] MEDS: Potassium Chloride 10% 20 MEQ/15 ML Soln 15 ML UD Cup PO SCH ×3 (08:27→19:23)
[2018-08-13] MEDS: Cholecalciferol (Vitamin D3) 25 MCG Tab PO SCH (08:28)
[2018-08-13] MEDS: Simvastatin 10 MG Tab PO SCH (19:23)
[2018-08-13] MEDS: LEVOTHYROXINE SODIUM 137 MCG PO SCH (19:23)
[2018-08-13] MEDS: buPROPion 100 MG Tab PO SCH (19:23)
[2018-08-14] MEDS: Metoclopramide 10 MG Tab PO SCH ×2 (07:27→17:27)
[2018-08-14] MEDS: Citalopram 20 MG Tab PO SCH (07:27)
[2018-08-14] MEDS: Albuterol/Ipratropium 3.0-0.5 MG/3 ML Neb Soln NEB SCH ×2 (07:27→19:19)
[2018-08-14] MEDS: Furosemide 20 MG Tab PO SCH (07:28)
[2018-08-14] MEDS: Fludrocortisone 0.1 MG Tab PO SCH ×2 (07:28→19:19)
[2018-08-14] MEDS: Ibuprofen 600 MG Tab PO SCH ×2 (07:28→17:27)
[2018-08-14] MEDS: Niacin 500 MG Tab PO SCH ×2 (07:28→17:28)
[2018-08-14] MEDS: Cholecalciferol (Vitamin D3) 25 MCG Tab PO SCH (07:29)
[2018-08-14] MEDS: Potassium Chloride 10% 20 MEQ/15 ML Soln 15 ML UD Cup PO SCH ×3 (07:29→19:20)
[2018-08-14] MEDS: Cyanocobalamin (Vitamin B12) 1,000 MCG Tab PO SCH (07:29)
[2018-08-14] MEDS: LEVOTHYROXINE SODIUM 137 MCG PO SCH (19:20)
[2018-08-14] MEDS: buPROPion 100 MG Tab PO SCH (19:21)
[2018-08-14] MEDS: Simvastatin 10 MG Tab PO SCH (19:21)
[2018-08-15] MEDS: Metoclopramide 10 MG Tab PO SCH ×2 (07:59→17:25)
[2018-08-15] MEDS: Citalopram 20 MG Tab PO SCH (07:59)
[2018-08-15] MEDS: Furosemide 20 MG Tab PO SCH (08:00)
[2018-08-15] MEDS: Ibuprofen 600 MG Tab PO SCH ×2 (08:00→17:25)
[2018-08-15] MEDS: Albuterol/Ipratropium 3.0-0.5 MG/3 ML Neb Soln NEB SCH ×2 (08:00→19:19)
[2018-08-15] MEDS: Potassium Chloride 10% 20 MEQ/15 ML Soln 15 ML UD Cup PO SCH ×3 (08:00→19:20)
[2018-08-15] MEDS: Fludrocortisone 0.1 MG Tab PO SCH ×2 (08:00→19:19)
[2018-08-15] MEDS: Cholecalciferol (Vitamin D3) 25 MCG Tab PO SCH (08:01)
[2018-08-15] MEDS: Niacin 500 MG Tab PO SCH ×2 (08:01→17:25)
[2018-08-15] MEDS: Cyanocobalamin (Vitamin B12) 1,000 MCG Tab PO SCH (08:01)
[2018-08-15] MEDS: LEVOTHYROXINE SODIUM 137 MCG PO SCH (19:19)
[2018-08-15] MEDS: Simvastatin 10 MG Tab PO SCH (19:20)
[2018-08-15] MEDS: buPROPion 100 MG Tab PO SCH (19:20)
[2018-08-16] MEDS: Fludrocortisone 0.1 MG Tab PO SCH ×2 (08:17→19:59)
[2018-08-16] MEDS: Citalopram 20 MG Tab PO SCH (08:17)
[2018-08-16] MEDS: Furosemide 20 MG Tab PO SCH (08:17)
[2018-08-16] MEDS: Metoclopramide 10 MG Tab PO SCH ×2 (08:17→17:22)
[2018-08-16] MEDS: Albuterol/Ipratropium 3.0-0.5 MG/3 ML Neb Soln NEB SCH ×2 (08:17→19:58)
[2018-08-16] MEDS: Ibuprofen 600 MG Tab PO SCH ×2 (08:18→17:22)
[2018-08-16] MEDS: Potassium Chloride 10% 20 MEQ/15 ML Soln 15 ML UD Cup PO SCH ×3 (08:18→19:59)
[2018-08-16] MEDS: Niacin 500 MG Tab PO SCH ×2 (08:18→17:22)
[2018-08-16] MEDS: Cholecalciferol (Vitamin D3) 25 MCG Tab PO SCH (08:19)
[2018-08-16] MEDS: Cyanocobalamin (Vitamin B12) 1,000 MCG Tab PO SCH (08:19)
[2018-08-16] MEDS: LEVOTHYROXINE SODIUM 137 MCG PO SCH (19:59)
[2018-08-16] MEDS: Simvastatin 10 MG Tab PO SCH (20:00)
[2018-08-16] MEDS: buPROPion 100 MG Tab PO SCH (20:00)
[2018-08-17] MEDS: Metoclopramide 10 MG Tab PO SCH ×2 (08:27→18:05)
[2018-08-17] MEDS: Furosemide 20 MG Tab PO SCH (08:27)
[2018-08-17] MEDS: Ibuprofen 600 MG Tab PO SCH ×2 (08:27→18:05)
[2018-08-17] MEDS: Citalopram 20 MG Tab PO SCH (08:27)
[2018-08-17] MEDS: Fludrocortisone 0.1 MG Tab PO SCH ×2 (08:27→19:33)
[2018-08-17] MEDS: Albuterol/Ipratropium 3.0-0.5 MG/3 ML Neb Soln NEB SCH ×2 (08:28→19:32)
[2018-08-17] MEDS: Niacin 500 MG Tab PO SCH ×2 (08:28→18:05)
[2018-08-17] MEDS: Potassium Chloride 10% 20 MEQ/15 ML Soln 15 ML UD Cup PO SCH ×4 (08:28→19:33)
[2018-08-17] MEDS: Cyanocobalamin (Vitamin B12) 1,000 MCG Tab PO SCH (08:29)
[2018-08-17] MEDS: Cholecalciferol (Vitamin D3) 25 MCG Tab PO SCH (08:30)
[2018-08-17] MEDS: LEVOTHYROXINE SODIUM 137 MCG PO SCH (19:33)
[2018-08-17] MEDS: buPROPion 100 MG Tab PO SCH (19:35)
[2018-08-17] MEDS: Simvastatin 10 MG Tab PO SCH (19:35)
[2018-08-18] MEDS: Ibuprofen 600 MG Tab PO SCH ×2 (07:44→17:08)
[2018-08-18] MEDS: Furosemide 20 MG Tab PO SCH (07:44)
[2018-08-18] MEDS: Citalopram 20 MG Tab PO SCH (07:44)
[2018-08-18] MEDS: Albuterol/Ipratropium 3.0-0.5 MG/3 ML Neb Soln NEB SCH ×2 (07:44→19:39)
[2018-08-18] MEDS: Metoclopramide 10 MG Tab PO SCH ×2 (07:44→17:08)
[2018-08-18] MEDS: Fludrocortisone 0.1 MG Tab PO SCH ×2 (07:44→19:39)
[2018-08-18] MEDS: Potassium Chloride 10% 20 MEQ/15 ML Soln 15 ML UD Cup PO SCH ×3 (07:45→19:39)
[2018-08-18] MEDS: Niacin 500 MG Tab PO SCH ×2 (07:45→17:09)
[2018-08-18] MEDS: Cholecalciferol (Vitamin D3) 25 MCG Tab PO SCH (07:46)
[2018-08-18] MEDS: Cyanocobalamin (Vitamin B12) 1,000 MCG Tab PO SCH (07:46)
[2018-08-18] MEDS: LEVOTHYROXINE SODIUM 137 MCG PO SCH (19:39)
[2018-08-18] MEDS: Simvastatin 10 MG Tab PO SCH (19:40)
[2018-08-18] MEDS: buPROPion 100 MG Tab PO SCH (19:40)
[2018-08-19] MEDS: Calcium Carbonate 750 MG Tab.Chew PO PRN (06:17)
[2018-08-19] MEDS: Ibuprofen 600 MG Tab PO SCH ×2 (07:38→17:09)
[2018-08-19] MEDS: Metoclopramide 10 MG Tab PO SCH ×2 (07:38→17:09)
[2018-08-19] MEDS: Citalopram 20 MG Tab PO SCH (07:38)
[2018-08-19] MEDS: Furosemide 20 MG Tab PO SCH (07:38)
[2018-08-19] MEDS: Fludrocortisone 0.1 MG Tab PO SCH ×2 (07:38→19:20)
[2018-08-19] MEDS: Niacin 500 MG Tab PO SCH ×2 (07:38→17:09)
[2018-08-19] MEDS: Albuterol/Ipratropium 3.0-0.5 MG/3 ML Neb Soln NEB SCH ×2 (07:38→19:21)
[2018-08-19] MEDS: Cyanocobalamin (Vitamin B12) 1,000 MCG Tab PO SCH (07:39)
[2018-08-19] MEDS: Cholecalciferol (Vitamin D3) 25 MCG Tab PO SCH (07:39)
[2018-08-19] MEDS: Potassium Chloride 10% 20 MEQ/15 ML Soln 15 ML UD Cup PO SCH ×3 (07:39→19:20)
[2018-08-19] MEDS: buPROPion 100 MG Tab PO SCH (19:20)
[2018-08-19] MEDS: LEVOTHYROXINE SODIUM 137 MCG PO SCH (19:20)
[2018-08-19] MEDS: Simvastatin 10 MG Tab PO SCH (19:20)
[2018-08-20] MEDS: Citalopram 20 MG Tab PO SCH (07:52)
[2018-08-20] MEDS: Fludrocortisone 0.1 MG Tab PO SCH ×2 (07:52→19:23)
[2018-08-20] MEDS: Ibuprofen 600 MG Tab PO SCH ×2 (07:52→17:34)
[2018-08-20] MEDS: Metoclopramide 10 MG Tab PO SCH ×2 (07:52→17:34)
[2018-08-20] MEDS: Furosemide 20 MG Tab PO SCH (07:52)
[2018-08-20] MEDS: Albuterol/Ipratropium 3.0-0.5 MG/3 ML Neb Soln NEB SCH ×2 (07:52→19:23)
[2018-08-20] MEDS: Cyanocobalamin (Vitamin B12) 1,000 MCG Tab PO SCH (07:53)
[2018-08-20] MEDS: Niacin 500 MG Tab PO SCH ×2 (07:53→17:34)
[2018-08-20] MEDS: Potassium Chloride 10% 20 MEQ/15 ML Soln 15 ML UD Cup PO SCH ×3 (07:54→19:23)
[2018-08-20] MEDS: Cholecalciferol (Vitamin D3) 25 MCG Tab PO SCH (07:54)
[2018-08-20] MEDS: buPROPion 100 MG Tab PO SCH (19:22)
[2018-08-20] MEDS: LEVOTHYROXINE SODIUM 137 MCG PO SCH (19:22)
[2018-08-20] MEDS: Simvastatin 10 MG Tab PO SCH (19:22)
[2018-08-21] MEDS: Albuterol/Ipratropium 3.0-0.5 MG/3 ML Neb Soln NEB SCH ×2 (08:03→19:23)
[2018-08-21] MEDS: Metoclopramide 10 MG Tab PO SCH ×2 (08:03→17:43)
[2018-08-21] MEDS: Fludrocortisone 0.1 MG Tab PO SCH ×2 (08:03→19:22)
[2018-08-21] MEDS: Citalopram 20 MG Tab PO SCH (08:03)
[2018-08-21] MEDS: Furosemide 20 MG Tab PO SCH (08:03)
[2018-08-21] MEDS: Ibuprofen 600 MG Tab PO SCH ×2 (08:04→17:43)
[2018-08-21] MEDS: Cyanocobalamin (Vitamin B12) 1,000 MCG Tab PO SCH (08:04)
[2018-08-21] MEDS: Niacin 500 MG Tab PO SCH ×2 (08:04→17:44)
[2018-08-21] MEDS: Potassium Chloride 10% 20 MEQ/15 ML Soln 15 ML UD Cup PO SCH ×3 (08:05→19:21)
[2018-08-21] MEDS: Cholecalciferol (Vitamin D3) 25 MCG Tab PO SCH (08:05)
[2018-08-21] MEDS: LEVOTHYROXINE SODIUM 137 MCG PO SCH (19:22)
[2018-08-21] MEDS: buPROPion 100 MG Tab PO SCH (19:22)
[2018-08-21] MEDS: Simvastatin 10 MG Tab PO SCH (19:22)
[2018-08-22] MEDS: Furosemide 20 MG Tab PO SCH (07:50)
[2018-08-22] MEDS: Albuterol/Ipratropium 3.0-0.5 MG/3 ML Neb Soln NEB SCH ×2 (07:50→19:12)
[2018-08-22] MEDS: Ibuprofen 600 MG Tab PO SCH ×2 (07:50→17:29)
[2018-08-22] MEDS: Fludrocortisone 0.1 MG Tab PO SCH ×2 (07:50→19:12)
[2018-08-22] MEDS: Metoclopramide 10 MG Tab PO SCH ×2 (07:50→17:29)
[2018-08-22] MEDS: Citalopram 20 MG Tab PO SCH (07:50)
[2018-08-22] MEDS: Cholecalciferol (Vitamin D3) 25 MCG Tab PO SCH (07:51)
[2018-08-22] MEDS: Cyanocobalamin (Vitamin B12) 1,000 MCG Tab PO SCH (07:51)
[2018-08-22] MEDS: Niacin 500 MG Tab PO SCH ×2 (07:51→17:29)
[2018-08-22] MEDS: Potassium Chloride 10% 20 MEQ/15 ML Soln 15 ML UD Cup PO SCH ×3 (07:52→19:13)
[2018-08-22] MEDS: Simvastatin 10 MG Tab PO SCH (19:12)
[2018-08-22] MEDS: LEVOTHYROXINE SODIUM 137 MCG PO SCH (19:12)
[2018-08-22] MEDS: buPROPion 100 MG Tab PO SCH (19:12)
[2018-08-23] MEDS: Metoclopramide 10 MG Tab PO SCH ×2 (07:53→17:15)
[2018-08-23] MEDS: Citalopram 20 MG Tab PO SCH (07:53)
[2018-08-23] MEDS: Fludrocortisone 0.1 MG Tab PO SCH ×2 (07:54→20:14)
[2018-08-23] MEDS: Niacin 500 MG Tab PO SCH ×2 (07:54→17:16)
[2018-08-23] MEDS: Furosemide 20 MG Tab PO SCH (07:54)
[2018-08-23] MEDS: Ibuprofen 600 MG Tab PO SCH ×2 (07:54→17:15)
[2018-08-23] MEDS: Albuterol/Ipratropium 3.0-0.5 MG/3 ML Neb Soln NEB SCH ×2 (07:54→20:14)
[2018-08-23] MEDS: Cholecalciferol (Vitamin D3) 25 MCG Tab PO SCH (07:55)
[2018-08-23] MEDS: Potassium Chloride 10% 20 MEQ/15 ML Soln 15 ML UD Cup PO SCH ×3 (07:55→20:15)
[2018-08-23] MEDS: Cyanocobalamin (Vitamin B12) 1,000 MCG Tab PO SCH (07:55)
[2018-08-23] MEDS: LEVOTHYROXINE SODIUM 137 MCG PO SCH (20:14)
[2018-08-23] MEDS: buPROPion 100 MG Tab PO SCH (20:15)
[2018-08-23] MEDS: Simvastatin 10 MG Tab PO SCH (20:16)
[2018-08-24] MEDS: Metoclopramide 10 MG Tab PO SCH ×2 (07:43→17:31)
[2018-08-24] MEDS: Ibuprofen 600 MG Tab PO SCH ×2 (07:43→17:31)
[2018-08-24] MEDS: Citalopram 20 MG Tab PO SCH (07:43)
[2018-08-24] MEDS: Albuterol/Ipratropium 3.0-0.5 MG/3 ML Neb Soln NEB SCH ×2 (07:43→19:16)
[2018-08-24] MEDS: Fludrocortisone 0.1 MG Tab PO SCH ×2 (07:43→19:14)
[2018-08-24] MEDS: Furosemide 20 MG Tab PO SCH (07:43)
[2018-08-24] MEDS: Cyanocobalamin (Vitamin B12) 1,000 MCG Tab PO SCH (07:44)
[2018-08-24] MEDS: Niacin 500 MG Tab PO SCH ×2 (07:44→17:32)
[2018-08-24] MEDS: Potassium Chloride 10% 20 MEQ/15 ML Soln 15 ML UD Cup PO SCH ×3 (07:44→19:16)
[2018-08-24] MEDS: Cholecalciferol (Vitamin D3) 25 MCG Tab PO SCH (07:45)
[2018-08-24] MEDS: buPROPion 100 MG Tab PO SCH (19:15)
[2018-08-24] MEDS: LEVOTHYROXINE SODIUM 137 MCG PO SCH (19:15)
[2018-08-24] MEDS: Simvastatin 10 MG Tab PO SCH (19:15)
[2018-08-25] MEDS: Metoclopramide 10 MG Tab PO SCH ×2 (08:18→17:47)
[2018-08-25] MEDS: Albuterol/Ipratropium 3.0-0.5 MG/3 ML Neb Soln NEB SCH ×2 (08:18→19:10)
[2018-08-25] MEDS: Citalopram 20 MG Tab PO SCH (08:18)
[2018-08-25] MEDS: Furosemide 20 MG Tab PO SCH (08:19)
[2018-08-25] MEDS: Ibuprofen 600 MG Tab PO SCH ×2 (08:19→17:47)
[2018-08-25] MEDS: Fludrocortisone 0.1 MG Tab PO SCH ×2 (08:19→19:09)
[2018-08-25] MEDS: Niacin 500 MG Tab PO SCH ×2 (08:19→17:48)
[2018-08-25] MEDS: Potassium Chloride 10% 20 MEQ/15 ML Soln 15 ML UD Cup PO SCH ×3 (08:20→19:08)
[2018-08-25] MEDS: Cyanocobalamin (Vitamin B12) 1,000 MCG Tab PO SCH (08:21)
[2018-08-25] MEDS: Cholecalciferol (Vitamin D3) 25 MCG Tab PO SCH (08:22)
[2018-08-25] MEDS: LEVOTHYROXINE SODIUM 137 MCG PO SCH (19:09)
[2018-08-25] MEDS: Simvastatin 10 MG Tab PO SCH (19:09)
[2018-08-25] MEDS: buPROPion 100 MG Tab PO SCH (19:09)
[2018-08-26] MEDS: Potassium Chloride 10% 20 MEQ/15 ML Soln 15 ML UD Cup PO SCH ×3 (08:05→19:30)
[2018-08-26] MEDS: Metoclopramide 10 MG Tab PO SCH ×2 (08:05→17:11)
[2018-08-26] MEDS: Citalopram 20 MG Tab PO SCH (08:05)
[2018-08-26] MEDS: Fludrocortisone 0.1 MG Tab PO SCH ×2 (08:06→19:30)
[2018-08-26] MEDS: Furosemide 20 MG Tab PO SCH (08:06)
[2018-08-26] MEDS: Ibuprofen 600 MG Tab PO SCH ×2 (08:06→17:11)
[2018-08-26] MEDS: Niacin 500 MG Tab PO SCH ×2 (08:06→17:11)
[2018-08-26] MEDS: Albuterol/Ipratropium 3.0-0.5 MG/3 ML Neb Soln NEB SCH ×2 (08:06→19:29)
[2018-08-26] MEDS: Cyanocobalamin (Vitamin B12) 1,000 MCG Tab PO SCH (08:07)
[2018-08-26] MEDS: Cholecalciferol (Vitamin D3) 25 MCG Tab PO SCH (08:07)
[2018-08-26] MEDS: LEVOTHYROXINE SODIUM 137 MCG PO SCH (19:30)
[2018-08-26] MEDS: buPROPion 100 MG Tab PO SCH (19:31)
[2018-08-26] MEDS: Simvastatin 10 MG Tab PO SCH (19:31)
[2018-08-27] MEDS: Metoclopramide 10 MG Tab PO SCH ×2 (07:42→17:51)
[2018-08-27] MEDS: Citalopram 20 MG Tab PO SCH (07:42)
[2018-08-27] MEDS: Ibuprofen 600 MG Tab PO SCH ×2 (07:42→17:51)
[2018-08-27] MEDS: Furosemide 20 MG Tab PO SCH (07:42)
[2018-08-27] MEDS: Fludrocortisone 0.1 MG Tab PO SCH ×2 (07:42→19:20)
[2018-08-27] MEDS: Albuterol/Ipratropium 3.0-0.5 MG/3 ML Neb Soln NEB SCH ×2 (07:42→19:21)
[2018-08-27] MEDS: Cholecalciferol (Vitamin D3) 25 MCG Tab PO SCH (07:43)
[2018-08-27] MEDS: Niacin 500 MG Tab PO SCH ×2 (07:43→17:52)
[2018-08-27] MEDS: Cyanocobalamin (Vitamin B12) 1,000 MCG Tab PO SCH (07:43)
[2018-08-27] MEDS: Potassium Chloride 10% 20 MEQ/15 ML Soln 15 ML UD Cup PO SCH ×3 (07:44→19:21)
[2018-08-27] MEDS: LEVOTHYROXINE SODIUM 137 MCG PO SCH (19:20)
[2018-08-27] MEDS: buPROPion 100 MG Tab PO SCH (19:20)
[2018-08-27] MEDS: Simvastatin 10 MG Tab PO SCH (19:20)
[2018-08-28] MEDS: Metoclopramide 10 MG Tab PO SCH ×2 (07:26→17:07)
[2018-08-28] MEDS: Fludrocortisone 0.1 MG Tab PO SCH ×2 (07:26→19:45)
[2018-08-28] MEDS: Furosemide 20 MG Tab PO SCH (07:26)
[2018-08-28] MEDS: Citalopram 20 MG Tab PO SCH (07:26)
[2018-08-28] MEDS: Albuterol/Ipratropium 3.0-0.5 MG/3 ML Neb Soln NEB SCH ×2 (07:26→19:44)
[2018-08-28] MEDS: Cholecalciferol (Vitamin D3) 25 MCG Tab PO SCH (07:27)
[2018-08-28] MEDS: Niacin 500 MG Tab PO SCH ×2 (07:27→17:08)
[2018-08-28] MEDS: Ibuprofen 600 MG Tab PO SCH ×2 (07:27→17:07)
[2018-08-28] MEDS: Cyanocobalamin (Vitamin B12) 1,000 MCG Tab PO SCH (07:27)
[2018-08-28] MEDS: Potassium Chloride 10% 20 MEQ/15 ML Soln 15 ML UD Cup PO SCH ×3 (07:28→19:46)
[2018-08-28] MEDS: LEVOTHYROXINE SODIUM 137 MCG PO SCH (19:46)
[2018-08-28] MEDS: Simvastatin 10 MG Tab PO SCH (19:47)
[2018-08-28] MEDS: buPROPion 100 MG Tab PO SCH (19:47)
[2018-08-29] MEDS: Citalopram 20 MG Tab PO SCH (08:31)
[2018-08-29] MEDS: Metoclopramide 10 MG Tab PO SCH ×2 (08:31→18:07)
[2018-08-29] MEDS: Potassium Chloride 10% 20 MEQ/15 ML Soln 15 ML UD Cup PO SCH ×3 (08:31→20:05)
[2018-08-29] MEDS: Furosemide 20 MG Tab PO SCH (08:32)
[2018-08-29] MEDS: Niacin 500 MG Tab PO SCH ×2 (08:32→18:07)
[2018-08-29] MEDS: Fludrocortisone 0.1 MG Tab PO SCH ×2 (08:32→20:05)
[2018-08-29] MEDS: Ibuprofen 600 MG Tab PO SCH ×2 (08:32→18:07)
[2018-08-29] MEDS: Albuterol/Ipratropium 3.0-0.5 MG/3 ML Neb Soln NEB SCH ×2 (08:32→20:05)
[2018-08-29] MEDS: Cholecalciferol (Vitamin D3) 25 MCG Tab PO SCH (08:33)
[2018-08-29] MEDS: Cyanocobalamin (Vitamin B12) 1,000 MCG Tab PO SCH (08:33)
[2018-08-29] MEDS: LEVOTHYROXINE SODIUM 137 MCG PO SCH (20:05)
[2018-08-29] MEDS: buPROPion 100 MG Tab PO SCH (20:06)
[2018-08-29] MEDS: Simvastatin 10 MG Tab PO SCH (20:06)
[2018-08-30] MEDS: Metoclopramide 10 MG Tab PO SCH ×2 (08:17→18:19)
[2018-08-30] MEDS: Niacin 500 MG Tab PO SCH ×2 (09:00→18:20)
[2018-08-30] MEDS: Albuterol/Ipratropium 3.0-0.5 MG/3 ML Neb Soln NEB SCH ×2 (09:00→19:54)
[2018-08-30] MEDS: Ibuprofen 600 MG Tab PO SCH ×2 (09:00→18:19)
[2018-08-30] MEDS: Citalopram 20 MG Tab PO SCH (09:00)
[2018-08-30] MEDS: Furosemide 20 MG Tab PO SCH (09:00)
[2018-08-30] MEDS: Potassium Chloride 10% 20 MEQ/15 ML Soln 15 ML UD Cup PO SCH ×3 (09:00→19:55)
[2018-08-30] MEDS: Fludrocortisone 0.1 MG Tab PO SCH ×2 (09:00→19:54)
[2018-08-30] MEDS: Cyanocobalamin (Vitamin B12) 1,000 MCG Tab PO SCH (09:00)
[2018-08-30] MEDS: Cholecalciferol (Vitamin D3) 25 MCG Tab PO SCH (09:05)
[2018-08-30] MEDS: LEVOTHYROXINE SODIUM 137 MCG PO SCH (19:54)
[2018-08-30] MEDS: Simvastatin 10 MG Tab PO SCH (19:55)
[2018-08-30] MEDS: buPROPion 100 MG Tab PO SCH (19:55)
[2018-08-31 07:41] LABS: HEMOGLOBIN A1C 5.3 % (4.3-5.7)
[2018-08-31 08:08] LABS: CHLORIDE,CL 108 mmol/L (98-107); SODIUM,NA 146 mmol/L (136-145)
[2018-08-31] MEDS: Metoclopramide 10 MG Tab PO SCH ×2 (08:11→17:17)
[2018-08-31] MEDS: Albuterol/Ipratropium 3.0-0.5 MG/3 ML Neb Soln NEB SCH ×2 (08:11→19:38)
[2018-08-31] MEDS: Citalopram 20 MG Tab PO SCH (08:11)
[2018-08-31] MEDS: Furosemide 20 MG Tab PO SCH (08:12)
[2018-08-31] MEDS: Ibuprofen 600 MG Tab PO SCH ×2 (08:12→17:17)
[2018-08-31] MEDS: Fludrocortisone 0.1 MG Tab PO SCH ×2 (08:12→19:41)
[2018-08-31] MEDS: Cyanocobalamin (Vitamin B12) 1,000 MCG Tab PO SCH (08:12)
[2018-08-31] MEDS: Niacin 500 MG Tab PO SCH ×2 (08:12→17:17)
[2018-08-31] MEDS: Potassium Chloride 10% 20 MEQ/15 ML Soln 15 ML UD Cup PO SCH ×3 (08:13→19:42)
[2018-08-31] MEDS: Cholecalciferol (Vitamin D3) 25 MCG Tab PO SCH (08:13)
--- NOTE | 2018-08-31 11:19 | PCM.PN ---
- General Info Date of Service: 08/31/18 Admission Dx/Problem (Free Text): Myotonic dystrophy Functional Status: Reports: Pain Controlled, Tolerating Diet, Ambulating, Urinating, New Symptoms (Occasional diffuse nonspecific arthralgias), Incentive Spirometry - Review of Systems General: Reports: Weakness (Stable chronic secondary to myotonic dystrophy). Denies: Fever, Fatigue, Malaise, Chills, Night Sweats, Appetite (Adequate) HEENT: Reports: No Symptoms, Other (Completely absent teeth with dentures not yet available) Pulmonary: Reports: No Symptoms. Denies: Shortness of Breath, Pleuritic Chest Pain, Cough, Wheezing Cardiovascular: Reports: Edema (Stable dependent). Denies: Chest Pain, Palpitations, Dyspnea on Exertion, Orthopnea, Lightheadedness Gastrointestinal: Reports: No Symptoms. Denies: Abdominal Pain, Constipation, Diarrhea, Difficulty Swallowing, Hematochezia, Melena, Nausea, Vomiting Genitourinary: Reports: No Symptoms Musculoskeletal: Reports: Joint Pain (Nonspecific occasional diffuse arthralgias ) Skin: Reports: No Symptoms. Denies: Diaphoresis, Bruising Neurological: Reports: Difficulty Walking (Stable), Weakness (Stable generalized ), Gait Disturbance (Stable secondary to her myotonic dystrophy). Denies: Confusion, Dizziness, Headache, Numbness, Paresthesia, Syncope, Tingling, Trouble Speaking Psychiatric: Reports: No Symptoms. Denies: Confusion, Depression, Anxiety, Agitation, Cravings, Hallucinations - Patient Data Vitals - Most Recent: Last Vital Signs Temp 36.2 C 08/25/18 08:20 Pulse 76 08/25/18 08:20 Resp 18 08/25/18 08:20 BP 102/60 08/25/18 08:20 Pulse Ox 92 L 08/25/18 08:20 Weight - Most Recent: 102.784 kg I&O - Last 24 Hours: Intake & Output 08/30/18 08/31/18 08/31/18 22:59 06:59 14:59 Intake Total 150 240 990 Balance 150 240 990 Imaging Impressions - Last 24 Hours: None Lab Results Last 24 Hours: Laboratory Results - last 24 hr 08/31/18 08/31/18 08/31/18 Range/Units 06:45 06:45 06:45 WBC 6.0 (4.0-10.2) K/uL RBC 3.75 L (3.77-5.09) M/uL Hgb 12.9 (11.7-15.5) g/dL Hct 39.0 (34.0-46.0) % MCV 104.0 H (84.0-98.0) fL MCH 34.4 H (28.2-33.3) pg MCHC 33.1 (31.7-36.0) g/dL RDW 14.1 (11.2-14.1) % Plt Count 147 L (150-350) K/uL Neut % (Auto) 71.9 (45.0-80.0) % Lymph % (Auto) 20.1 (10.0-50.0) % Glascock % (Auto) 5.0 (2.0-14.0) % Eos % (Auto) 2.7 (0.0-5.0) % Baso % (Auto) 0.3 (0.0-2.0) % Neut # (Auto) 4.30 (1.40-7.00) K/uL Lymph # (Auto) 1.20 (0.50-3.50) K/uL Glascock # (Auto) 0.30 (0.00-1.00) K/uL Eos # (Auto) 0.16 (0.00-0.50) K/uL Baso # (Auto) 0.02 (0.00-0.20) K/uL Sodium 146 H (136-145) mmol/L Potassium 3.9 (3.5-5.1) mmol/L Chloride 108 H (98-107) mmol/L Carbon Dioxide 29.9 (21.0-32.0) mmol/L BUN 10 (7-18) mg/dL Creatinine 0.50 L (0.51-1.17) mg/dL Est Cr Clr Drug Dosing 116.85 mL/min Estimated GFR (MDRD) > 60 mL/min Glucose 113 H (74-106) mg/dL Hemoglobin A1c 5.3 (4.3-5.7) % Calcium 8.7 (8.5-10.1) mg/dL Phosphorus 2.2 L (2.6-4.7) mg/dL Total Bilirubin 0.2 (0.2-1.0) mg/dL AST 25 (15-37) U/L ALT 35 (12-78) U/L Alkaline Phosphatase 144 H (46-116) IU/L Creatine Kinase 151 (26-308) U/L Creatine Kinase Index 1.1 (0.0-2.5) % CK-MB (CK-2) 1.60 (0.00-3.60) ng/mL Troponin I 0.000 (0.000-0.056) ng/mL NT-Pro-B Natriuret Pep 111 (0-125) pg/mL Total Protein 5.6 L (6.4-8.2) g/dL Albumin 2.8 L (3.4-5.0) g/dL Sandor Results Last 24 Hours: None Med Orders - Current: Current Medications Acetaminophen (Tylenol) 650 mg PO Q4H PRN PRN Reason: Pain Last Admin: 08/07/18 19:37 Dose: 650 mg Al Hydroxide/Mg Hydroxide (Mag-Al Plus) 30 ml PO Q4H PRN PRN Reason: Indigestion Albuterol/Ipratropium (Duoneb 3.0-0.5 Mg/3 Ml) 3 ml NEB BIDRT [facility] Last Admin: 08/31/18 08:11 Dose: 3 ml Albuterol/Ipratropium (Duoneb 3.0-0.5 Mg/3 Ml) 3 ml NEB Q4HRRT PRN PRN Reason: Dyspnea Last Admin: 11/30/17 19:29 Dose: 3 ml Bupropion HCl (Wellbutrin) 150 mg PO BEDTIME [facility] Last Admin: 08/30/18 19:55 Dose: 150 mg Calcium Carbonate/Glycine (Tums Extra Strength) 750 mg PO Q2HR PRN PRN Reason: Indigestion Last Admin: 08/19/18 06:17 Dose: 750 mg Cholecalciferol (Vitamin D3) [facility] [place] [facility] [place] Last Admin: 08/31/18 08:13 Dose: 1,000 units Citalopram Hydrobromide (Celexa) 20 [facility] [place] [facility] [place] Last Admin: 08/31/18 08:11 Dose: 20 mg Clotrimazole (Lotrimin Af 1% Crm) 1 gm TOP BID PRN PRN Reason: Rash Last Admin: 07/18/18 08:50 Dose: 1 applic Cyanocobalamin (Vitamin B12) 1,000 mcg PO QAM [facility] Last Admin: 08/31/18 08:12 Dose: 1,000 mcg Diphenhydramine HCl (Benadryl) 25 mg PO Q4H PRN PRN Reason: Itching Fludrocortisone Acetate (Florinef) 0.1 mg PO BEDTIME [facility] Last Admin: 08/30/18 19:54 Dose: 0.1 mg Fludrocortisone Acetate (Florinef) 0.2 mg PO QAM [facility] Last Admin: 08/31/18 08:12 Dose: 0.2 mg Furosemide (Lasix) 20 mg PO DAILY [facility] Last Admin: 08/31/18 08:12 Dose: 20 mg Ibuprofen (Motrin) 600 mg PO BID [facility] Last Admin: 08/31/18 08:12 Dose: 600 mg Ibuprofen (Motrin) 600 mg PO Q6H PRN PRN Reason: Breakthrough Pain Last Admin: 08/12/18 05:33 Dose: 600 mg Metoclopramide HCl (Reglan) 10 mg PO BIDAC [facility] Last Admin: 08/31/18 08:11 Dose: 10 mg Niacin (Niacin) 500 mg PO BID [facility] Last Admin: 08/31/18 08:12 Dose: 500 mg Levothyroxine Sodium (137 Mcg Tablets) 137 mcg PO BEDTIME [facility] Last Admin: 08/30/18 19:54 Dose: 137 mcg Potassium Chloride (Potassium Chloride Solution) 40 meq PO TID@,, [facility] Last Admin: 08/31/18 08:13 Dose: 40 meq Simvastatin (Zocor) 10 mg PO BEDTIME [facility] Last Admin: 08/30/18 19:55 Dose: 10 mg Tramadol HCl (Ultram) 50 mg PO Q6H PRN PRN Reason: Pain (severe 7-10) Last Admin: 07/24/18 10:13 Dose: 50 mg Discontinued Medications Chlorhexidine Gluconate (Peridex 0.12% Rinse) 15 ml MUCMEM BID@ [facility] Last Admin: 05/12/18 08:41 Dose: 15 ml Diphenoxylate HCl/Atropine (Lomotil 0.025-2.5 Mg) 1 tab PO QID PRN PRN Reason: Diarrhea Last Admin: 02/09/18 09:50 Dose: 1 tab Furosemide (Lasix) 40 mg IM NOW ONE Stop: 12/10/17 11:52 Last Admin: 12/10/17 13:10 Dose: 40 mg Gentian Annita (Gentian Annita) 1 ml TOP DAILY PRN PRN Reason: Rash Stop: 07/28/18 20:00 Last Admin: 07/24/18 19:49 Dose: 1 applic Lactobacillus Rhamnosus (Culturelle) 2 cap PO BID [facility] Stop: 03/02/18 18:00 Last Admin: 03/02/18 17:10 Dose: 2 cap Metronidazole (Flagyl) 500 mg PO Q8H [facility] Stop: 02/26/18 14:01 Last Admin: 02/26/18 14:14 Dose: 500 mg Metronidazole (Flagyl) 500 mg PO TID [facility] Stop: 05/22/18 18:01 Last Admin: 05/22/18 17:55 Dose: Not Given Cephalexin (Keflex) (500 Mg Capsules) 500 mg PO BID [facility] Last Admin: 03/11/18 07:56 Dose: 500 mg Fluconazole 150mg (Tablet) 1 each PO Q3D [facility] Stop: 12/06/17 20:01 Last Admin: 12/06/17 19:13 Dose: 1 each Nystatin (Mycostatin) 5 ml PO QID [facility] Stop: 05/19/18 16:01 Last Admin: 05/19/18 16:00 Dose: 5 ml Omeprazole (Omeprazole) 20 mg PO DAILY [facility] Last Admin: 03/11/18 07:55 Dose: 20 mg Potassium Chloride (Klor-Con M20) 20 meq PO ONETIME ONE Stop: 12/10/17 11:53 Last Admin: 12/10/17 13:10 Dose: 20 meq Potassium Chloride (Klor-Con M20) 20 meq PO DAILY [facility] - Exam Quality Assessment: Supplemental Oxygen, DVT Prophylaxis. No: Central Line/PICC , Urine Catheter, Skin Breakdown, Restraints General: Alert, Oriented, Cooperative, No Acute Distress HEENT: Pupils Equal, Pupils Reactive, EOMI, Mucous Membr. Moist/[place], Other ( Completely absent dentition) Neck: Supple, Trachea Midline, No JVD, No Thyromegaly, +2 Carotid Pulse wo Bruit Lungs: Clear to Auscultation, Normal Respiratory Effort. No: Rub Cardiovascular: Regular Rate, Regular Rhythm, No Murmurs. No: Gallops, Rubs GI/Abdominal Exam: Normal Bowel Sounds, Soft, Non-Tender, No Organomegaly, No Distention, No Abnormal Bruit, No Mass, Other (Obese). No: Guarding (Female) Exam: Deferred Back Exam: Normal Inspection, Full Range of Motion. No: CVA Tenderness (L), CVA Tenderness (R), Muscle Spasm Extremities: Normal Range of Motion, Non-Tender, Pedal Edema (Stable bilateral lymphedema of the lower extremities). No: Joint Swelling, Lurdes's Sign, Increased Warmth Peripheral Pulses: 1+: Dorsalis Pedis (L), Dorsalis Pedis (R), 2+: Radial (L), Radial (R) Skin: Warm, Dry, Intact. No: Ecchymosis Neurological: No New Focal Deficit, Other (Stable generalized weakness secondary to myotonic dystrophy) Psy/Mental Status: Alert, Normal Affect, Normal Mood. No: Agitated, Suicidal Ideation, Hallucinations, Withdrawal Symptoms - Problem List & Annotations (1) Caries SNOMED Code(s): 88668759 Code(s): K02.9 - DENTAL CARIES, UNSPECIFIED Status: Acute Priority: Medium Current Visit: Yes Annotation/Comment:: Complete teeth extraction on 05/05/18 without complications although the patient is still awaiting her complete dentures uppers and lowers. Current Ultram therapy continues to be used for refractory nonspecific arthralgias. PT consultation once again ordered for today. Attempt to taper this medication after improvement of her symptoms. (2) Steinert myotonic dystrophy syndrome SNOMED Code(s): 63723378 Code(s): G71.11 - MYOTONIC MUSCULAR DYSTROPHY Status: Chronic Priority: Medium Current Visit: Yes Annotation/Comment:: Stable by history and today' s exam. Today's blood work was reviewed. Continuation of every 4 month CPK, etc. evaluations especially in light of aggressive treatment of her dyslipidemia. (3) CHF, Congestive heart failure SNOMED Code(s): 47568710 Code(s): I50.9 - HEART FAILURE, UNSPECIFIED Status: Chronic Priority: Medium Current Visit: Yes Annotation/Comment:: Stable by clinical exam and history. Stable dependent edema since 12/10/17. Note weight stable today with previous 2.0 kg weight gain since her surgery. Note previous discontinuation of high protein Glucerna supplements as snacks. Note, however, dietary noncompliance is still an issue. Dietary consultation in effect. Continue to observe closely. No recent anginal complaints or current clinical evidence of CHF. Note previous history of PVCs, complete right bundle branch block/ bifascicular bundle-branch block, first-degree AV block, severe dyslipidemia hypokalemia, hypophosphatemia, and hyponatremia. Continue to observe for now with no further change in medical therapy (4) COPD (chronic obstructive pulmonary disease) SNOMED Code(s): 96963848 Code(s): J44.9 - CHRONIC OBSTRUCTIVE PULMONARY DISEASE, UNSPECIFIED Status : Chronic Priority: Medium Current Visit: Yes Qualifiers: COPD type: unspecified COPD Qualified Code(s): J44.9 - Chronic obstructive pulmonary disease, unspecified Annotation/Comment:: O2 dependent COPD stable by history with no bronchitic symptoms at this time. Continue current medical therapy. Patient does have a previous history of distant postoperative respiratory distress, although no complications after recent dental surgery. (5) Hyperglycemia SNOMED Code(s): 09020765 Code(s): R73.9 - HYPERGLYCEMIA, UNSPECIFIED Status: Chronic Priority: Medium Current Visit: Yes Onset Date: 06/29/15 Annotation/Comment:: Glycosylated hemoglobin normal on 04/29/18. Note persistent dietary noncompliance with some recent weight gain as above. Dietary consultation is in effect as above. Blood work to be repeated in 2 months. Glycosylated hemoglobin was also normal on 10/28/17. (6) Hyperlipidemia SNOMED Code(s): 00038938 Code(s): E78.5 - HYPERLIPIDEMIA, UNSPECIFIED Status: Chronic Priority: Medium Current Visit: Yes Annotation/Comment:: Previous history of severe dyslipidemia with aggressive medical therapy at this time. Dietary compliance once again strongly encouraged. Repeat lipid panel on 04/29/18 was relatively stable. (7) Hypothyroidism SNOMED Code(s): 28734937 Code(s): E03.9 - HYPOTHYROIDISM, UNSPECIFIED Status: Chronic Priority: Medium Current Visit: Yes Annotation/Comment:: TSH normal on 04/29/18. No other thyroid type symptoms. (8) Mixed anxiety and depressive disorder SNOMED Code(s): 624006340 Code(s): F41.8 - OTHER SPECIFIED ANXIETY DISORDERS Status: Chronic Priority: Medium Current Visit: Yes Annotation/Comment:: Stable by history. Patient is still relatively active with physical therapy, social activities, etc.. Continue to observe closely by nursing staff with no significant depression at this time with patient often alone in her room. (9) Osteoarthritis SNOMED Code(s): 050221252 Code(s): M19.90 - UNSPECIFIED OSTEOARTHRITIS, UNSPECIFIED SITE Status: Chronic Priority: Medium Current Visit: Yes Annotation/Comment:: Mild occasional generalized arthralgias recently as above. PT has once again been ordered. Note status post bilateral ankle ORIF secondary to fractures. (10) UTI (urinary tract infection) SNOMED Code(s): 33085110 Code(s): N39.0 - URINARY TRACT INFECTION, SITE NOT SPECIFIED Status: Chronic Priority: Medium Current Visit: Yes Qualifiers: Hematuria presence: without hematuria Annotation/Comment:: No current UTI symptoms despite recent discontinuation of Keflex therapy for previous recurrent UTIs. Note subsequent C. difficile infection, which has since resolved. Continue to observe for now with no reinitiation of antibiotic therapy. (11) C. difficile colitis SNOMED Code(s): 332919993 Code(s): A04.72 - ENTEROCOLITIS D/T CLOSTRIDIUM DIFFICILE, NOT SPCF RECUR Status: Chronic Priority: Medium Current Visit: Yes Onset Date: Annotation/Comment:: Resolved with negative follow-up stool specimen. Continue to observe closely, however. (12) Gastroesophageal reflux disease SNOMED Code(s): 653972053 Code(s): K21.9 - GASTRO-ESOPHAGEAL REFLUX DISEASE WITHOUT ESOPHAGITIS Status: Acute Priority: Medium Current Visit: Yes Annotation/Comment:: Stable by history with no abdominal complaints. (13) Hypoalbuminemia SNOMED Code(s): 442960873 Code(s): E88.09 - OTH DISORDERS OF PLASMA-PROTEIN METABOLISM, NEC Status: Acute Current Visit: Yes (14) Hypoalbuminemia SNOMED Code(s): 102482371 Code(s): E88.09 - OTH DISORDERS OF PLASMA-PROTEIN METABOLISM, NEC Status: Chronic Priority: Medium Current Visit: Yes Annotation/Comment:: Glucerna high-protein has been discontinued per recommendations from dietitian secondary to persistent weight gain. Continue high-protein diet as above. Observe for now. - Problem List Review Problem List Initiated/Reviewed/Updated: Yes - My Orders Last 24 Hours: My Active Orders 08/31/18 11:13 PT Evaluation and Treatment [CONS] Routine - Assessment Assessment:: As above - Plan Plan:: As above. The patient is recertified for swing bed care for an additional 2 months. Blood work to be repeated in 4 months. Note the patient has already been scheduled for a repeat right-sided mammogram and possible additional right sided breast ultrasound on 11/05/18 in this facility as per previous simple provider note. Extensive precautions were given to the patient, who is in agreement with the treatment plan.
[2018-08-31] MEDS: LEVOTHYROXINE SODIUM 137 MCG PO SCH (19:41)
[2018-08-31] MEDS: Simvastatin 10 MG Tab PO SCH (19:41)
[2018-08-31] MEDS: buPROPion 100 MG Tab PO SCH (19:41)
[2018-09-01] MEDS: Furosemide 20 MG Tab PO SCH (08:30)
[2018-09-01] MEDS: Citalopram 20 MG Tab PO SCH (08:30)
[2018-09-01] MEDS: Fludrocortisone 0.1 MG Tab PO SCH ×2 (08:30→19:25)
[2018-09-01] MEDS: Ibuprofen 600 MG Tab PO SCH ×2 (08:30→17:39)
[2018-09-01] MEDS: Metoclopramide 10 MG Tab PO SCH ×2 (08:30→17:39)
[2018-09-01] MEDS: Albuterol/Ipratropium 3.0-0.5 MG/3 ML Neb Soln NEB SCH ×2 (08:31→19:26)
[2018-09-01] MEDS: Niacin 500 MG Tab PO SCH ×2 (08:32→17:40)
[2018-09-01] MEDS: Potassium Chloride 10% 20 MEQ/15 ML Soln 15 ML UD Cup PO SCH ×3 (08:33→19:25)
[2018-09-01] MEDS: Cyanocobalamin (Vitamin B12) 1,000 MCG Tab PO SCH (08:33)
[2018-09-01] MEDS: Cholecalciferol (Vitamin D3) 25 MCG Tab PO SCH (08:34)
[2018-09-01] MEDS: Simvastatin 10 MG Tab PO SCH (19:25)
[2018-09-01] MEDS: LEVOTHYROXINE SODIUM 137 MCG PO SCH (19:25)
[2018-09-01] MEDS: buPROPion 100 MG Tab PO SCH (19:25)
[2018-09-02] MEDS: Potassium Chloride 10% 20 MEQ/15 ML Soln 15 ML UD Cup PO SCH ×3 (08:12→19:11)
[2018-09-02] MEDS: Metoclopramide 10 MG Tab PO SCH ×2 (08:13→18:02)
[2018-09-02] MEDS: Ibuprofen 600 MG Tab PO SCH ×2 (08:13→18:02)
[2018-09-02] MEDS: Albuterol/Ipratropium 3.0-0.5 MG/3 ML Neb Soln NEB SCH ×2 (08:14→19:12)
[2018-09-02] MEDS: Niacin 500 MG Tab PO SCH ×2 (08:14→18:03)
[2018-09-02] MEDS: Furosemide 20 MG Tab PO SCH (08:14)
[2018-09-02] MEDS: Citalopram 20 MG Tab PO SCH (08:14)
[2018-09-02] MEDS: Fludrocortisone 0.1 MG Tab PO SCH ×2 (08:14→19:11)
[2018-09-02] MEDS: Cholecalciferol (Vitamin D3) 25 MCG Tab PO SCH (08:15)
[2018-09-02] MEDS: Cyanocobalamin (Vitamin B12) 1,000 MCG Tab PO SCH (08:15)
[2018-09-02] MEDS: LEVOTHYROXINE SODIUM 137 MCG PO SCH (19:11)
[2018-09-02] MEDS: Simvastatin 10 MG Tab PO SCH (19:12)
[2018-09-02] MEDS: buPROPion 100 MG Tab PO SCH (19:12)
[2018-09-03] MEDS: Citalopram 20 MG Tab PO SCH (07:56)
[2018-09-03] MEDS: Metoclopramide 10 MG Tab PO SCH ×2 (07:56→17:54)
[2018-09-03] MEDS: Ibuprofen 600 MG Tab PO SCH ×2 (07:56→17:54)
[2018-09-03] MEDS: Fludrocortisone 0.1 MG Tab PO SCH ×2 (07:56→19:12)
[2018-09-03] MEDS: Furosemide 20 MG Tab PO SCH (07:56)
[2018-09-03] MEDS: Cholecalciferol (Vitamin D3) 25 MCG Tab PO SCH (07:57)
[2018-09-03] MEDS: Potassium Chloride 10% 20 MEQ/15 ML Soln 15 ML UD Cup PO SCH ×3 (07:58→19:12)
[2018-09-03] MEDS: Niacin 500 MG Tab PO SCH ×2 (07:58→17:55)
[2018-09-03] MEDS: Cyanocobalamin (Vitamin B12) 1,000 MCG Tab PO SCH (07:58)
[2018-09-03] MEDS: Albuterol/Ipratropium 3.0-0.5 MG/3 ML Neb Soln NEB SCH ×2 (07:59→19:13)
[2018-09-03] MEDS: Simvastatin 10 MG Tab PO SCH (19:12)
[2018-09-03] MEDS: LEVOTHYROXINE SODIUM 137 MCG PO SCH (19:12)
[2018-09-03] MEDS: buPROPion 100 MG Tab PO SCH (19:12)
[2018-09-04] MEDS: Albuterol/Ipratropium 3.0-0.5 MG/3 ML Neb Soln NEB SCH ×2 (08:09→19:56)
[2018-09-04] MEDS: Metoclopramide 10 MG Tab PO SCH ×2 (08:09→17:39)
[2018-09-04] MEDS: Citalopram 20 MG Tab PO SCH (08:09)
[2018-09-04] MEDS: Furosemide 20 MG Tab PO SCH (08:10)
[2018-09-04] MEDS: Fludrocortisone 0.1 MG Tab PO SCH ×2 (08:10→19:56)
[2018-09-04] MEDS: Niacin 500 MG Tab PO SCH ×2 (08:10→17:39)
[2018-09-04] MEDS: Ibuprofen 600 MG Tab PO SCH ×2 (08:10→17:39)
[2018-09-04] MEDS: Cyanocobalamin (Vitamin B12) 1,000 MCG Tab PO SCH (08:11)
[2018-09-04] MEDS: Cholecalciferol (Vitamin D3) 25 MCG Tab PO SCH (08:11)
[2018-09-04] MEDS: Potassium Chloride 10% 20 MEQ/15 ML Soln 15 ML UD Cup PO SCH ×3 (08:12→19:57)
[2018-09-04] MEDS: LEVOTHYROXINE SODIUM 137 MCG PO SCH (19:57)
[2018-09-04] MEDS: buPROPion 100 MG Tab PO SCH (19:58)
[2018-09-04] MEDS: Simvastatin 10 MG Tab PO SCH (19:58)
[2018-09-05] MEDS: Metoclopramide 10 MG Tab PO SCH ×2 (07:33→17:31)
[2018-09-05] MEDS: Citalopram 20 MG Tab PO SCH (07:33)
[2018-09-05] MEDS: Fludrocortisone 0.1 MG Tab PO SCH ×2 (07:34→19:55)
[2018-09-05] MEDS: Furosemide 20 MG Tab PO SCH (07:34)
[2018-09-05] MEDS: Ibuprofen 600 MG Tab PO SCH ×2 (07:34→17:32)
[2018-09-05] MEDS: Albuterol/Ipratropium 3.0-0.5 MG/3 ML Neb Soln NEB SCH ×2 (07:34→19:55)
[2018-09-05] MEDS: Niacin 500 MG Tab PO SCH ×2 (07:35→17:32)
[2018-09-05] MEDS: Potassium Chloride 10% 20 MEQ/15 ML Soln 15 ML UD Cup PO SCH ×3 (07:36→19:55)
[2018-09-05] MEDS: Cyanocobalamin (Vitamin B12) 1,000 MCG Tab PO SCH (07:36)
[2018-09-05] MEDS: Cholecalciferol (Vitamin D3) 25 MCG Tab PO SCH (07:37)
[2018-09-05] MEDS: LEVOTHYROXINE SODIUM 137 MCG PO SCH (19:55)
[2018-09-05] MEDS: Simvastatin 10 MG Tab PO SCH (19:56)
[2018-09-05] MEDS: buPROPion 100 MG Tab PO SCH (19:56)
[2018-09-06] MEDS: Metoclopramide 10 MG Tab PO SCH ×2 (08:07→17:49)
[2018-09-06] MEDS: Citalopram 20 MG Tab PO SCH (08:07)
[2018-09-06] MEDS: Furosemide 20 MG Tab PO SCH (08:08)
[2018-09-06] MEDS: Albuterol/Ipratropium 3.0-0.5 MG/3 ML Neb Soln NEB SCH ×2 (08:08→19:47)
[2018-09-06] MEDS: Ibuprofen 600 MG Tab PO SCH ×2 (08:08→17:49)
[2018-09-06] MEDS: Fludrocortisone 0.1 MG Tab PO SCH ×2 (08:08→19:48)
[2018-09-06] MEDS: Potassium Chloride 10% 20 MEQ/15 ML Soln 15 ML UD Cup PO SCH ×3 (08:09→19:49)
[2018-09-06] MEDS: Niacin 500 MG Tab PO SCH ×2 (08:09→17:50)
[2018-09-06] MEDS: Cyanocobalamin (Vitamin B12) 1,000 MCG Tab PO SCH (08:10)
[2018-09-06] MEDS: Cholecalciferol (Vitamin D3) 25 MCG Tab PO SCH (08:11)
[2018-09-06] MEDS: LEVOTHYROXINE SODIUM 137 MCG PO SCH (19:48)
[2018-09-06] MEDS: buPROPion 100 MG Tab PO SCH (19:48)
[2018-09-06] MEDS: Simvastatin 10 MG Tab PO SCH (19:49)
[2018-09-07] MEDS: Citalopram 20 MG Tab PO SCH (08:01)
[2018-09-07] MEDS: Fludrocortisone 0.1 MG Tab PO SCH ×2 (08:01→19:42)
[2018-09-07] MEDS: Ibuprofen 600 MG Tab PO SCH ×2 (08:01→17:44)
[2018-09-07] MEDS: Metoclopramide 10 MG Tab PO SCH ×2 (08:01→17:45)
[2018-09-07] MEDS: Furosemide 20 MG Tab PO SCH (08:01)
[2018-09-07] MEDS: Cholecalciferol (Vitamin D3) 25 MCG Tab PO SCH (08:02)
[2018-09-07] MEDS: Niacin 500 MG Tab PO SCH ×2 (08:02→17:44)
[2018-09-07] MEDS: Cyanocobalamin (Vitamin B12) 1,000 MCG Tab PO SCH (08:02)
[2018-09-07] MEDS: Albuterol/Ipratropium 3.0-0.5 MG/3 ML Neb Soln NEB SCH ×2 (08:03→19:43)
[2018-09-07] MEDS: Potassium Chloride 10% 20 MEQ/15 ML Soln 15 ML UD Cup PO SCH ×3 (08:03→19:44)
[2018-09-07] MEDS: LEVOTHYROXINE SODIUM 137 MCG PO SCH (19:42)
[2018-09-07] MEDS: Simvastatin 10 MG Tab PO SCH (19:42)
[2018-09-07] MEDS: buPROPion 100 MG Tab PO SCH (19:42)
[2018-09-08] MEDS: Citalopram 20 MG Tab PO SCH (08:23)
[2018-09-08] MEDS: Metoclopramide 10 MG Tab PO SCH ×2 (08:23→17:26)
[2018-09-08] MEDS: Furosemide 20 MG Tab PO SCH (08:24)
[2018-09-08] MEDS: Ibuprofen 600 MG Tab PO SCH ×2 (08:24→17:26)
[2018-09-08] MEDS: Niacin 500 MG Tab PO SCH ×2 (08:24→17:26)
[2018-09-08] MEDS: Albuterol/Ipratropium 3.0-0.5 MG/3 ML Neb Soln NEB SCH ×2 (08:24→19:07)
[2018-09-08] MEDS: Fludrocortisone 0.1 MG Tab PO SCH ×2 (08:24→19:08)
[2018-09-08] MEDS: Cholecalciferol (Vitamin D3) 25 MCG Tab PO SCH (08:25)
[2018-09-08] MEDS: Potassium Chloride 10% 20 MEQ/15 ML Soln 15 ML UD Cup PO SCH ×3 (08:25→19:09)
[2018-09-08] MEDS: Cyanocobalamin (Vitamin B12) 1,000 MCG Tab PO SCH (08:25)
[2018-09-08] MEDS: buPROPion 100 MG Tab PO SCH (19:08)
[2018-09-08] MEDS: LEVOTHYROXINE SODIUM 137 MCG PO SCH (19:08)
[2018-09-08] MEDS: Simvastatin 10 MG Tab PO SCH (19:08)
[2018-09-09] MEDS: Citalopram 20 MG Tab PO SCH (08:21)
[2018-09-09] MEDS: Metoclopramide 10 MG Tab PO SCH ×2 (08:21→17:45)
[2018-09-09] MEDS: Albuterol/Ipratropium 3.0-0.5 MG/3 ML Neb Soln NEB SCH ×2 (08:22→19:26)
[2018-09-09] MEDS: Fludrocortisone 0.1 MG Tab PO SCH ×2 (08:22→19:26)
[2018-09-09] MEDS: Ibuprofen 600 MG Tab PO SCH ×2 (08:22→17:56)
[2018-09-09] MEDS: Furosemide 20 MG Tab PO SCH (08:22)
[2018-09-09] MEDS: Niacin 500 MG Tab PO SCH ×2 (08:22→17:45)
[2018-09-09] MEDS: Cyanocobalamin (Vitamin B12) 1,000 MCG Tab PO SCH (08:23)
[2018-09-09] MEDS: Cholecalciferol (Vitamin D3) 25 MCG Tab PO SCH (08:23)
[2018-09-09] MEDS: Potassium Chloride 10% 20 MEQ/15 ML Soln 15 ML UD Cup PO SCH ×3 (08:23→19:27)
[2018-09-09] MEDS: Simvastatin 10 MG Tab PO SCH (19:25)
[2018-09-09] MEDS: buPROPion 100 MG Tab PO SCH (19:25)
[2018-09-09] MEDS: LEVOTHYROXINE SODIUM 137 MCG PO SCH (19:25)
[2018-09-09] MEDS: guaiFENesin/Dextromethorphan 100-10 MG/5 ML Soln 10 ML Cup PO PRN (19:27)
[2018-09-10] MEDS: Albuterol/Ipratropium 3.0-0.5 MG/3 ML Neb Soln NEB SCH ×2 (07:40→19:18)
[2018-09-10] MEDS: Citalopram 20 MG Tab PO SCH (07:40)
[2018-09-10] MEDS: Metoclopramide 10 MG Tab PO SCH ×2 (07:40→17:03)
[2018-09-10] MEDS: Furosemide 20 MG Tab PO SCH (07:40)
[2018-09-10] MEDS: Fludrocortisone 0.1 MG Tab PO SCH ×2 (07:40→19:18)
[2018-09-10] MEDS: Ibuprofen 600 MG Tab PO SCH ×2 (07:43→17:03)
[2018-09-10] MEDS: Potassium Chloride 10% 20 MEQ/15 ML Soln 15 ML UD Cup PO SCH ×3 (07:43→19:19)
[2018-09-10] MEDS: Niacin 500 MG Tab PO SCH ×2 (07:43→17:03)
[2018-09-10] MEDS: Cyanocobalamin (Vitamin B12) 1,000 MCG Tab PO SCH (07:44)
[2018-09-10] MEDS: Cholecalciferol (Vitamin D3) 25 MCG Tab PO SCH (07:44)
[2018-09-10] MEDS: traMADol 50 MG Tab PO PRN (07:45)
[2018-09-10] MEDS: Albuterol/Ipratropium 3.0-0.5 MG/3 ML Neb Soln NEB PRN ×2 (11:25→17:01)
--- NOTE | 2018-09-10 19:03 | PCM.SN ---
- Free Text/Narrative Note: HPI: Patient noted to have harsh cough that started approximately two days ago. No fevers or chills. Complains of increased generalized achiness. No bowel/bladder changes. Mild rhinorrhea, no sore throat. No GI changes. No or Neuro changes. Denies SOB/ chest pain. Still eating and drinking. Patient is on 3L of O2 normally and usually sats at 92%. Recent measurements have shown O2 sats at 91, 92, and 93%. Respiratory rate between 18-20. On exam: patient appears to be her usual self. No distress. No coughing. HEENT: EOMI/PERRLA, nares clear, OP clear. Neck supple, no lymphadenopathy. Lungs: No wheezes/rales/rhonchi noted. Breath sounds equal bilaterally. Abdomen: soft, nontender. Back: non-tender Capillary refill: brisk CBC obtained, no elevation in WBC noted. No acute changes/infiltrates noted on chest xray. A/ Viral syndrome/Viral respiratory tract infection Plan: Conservative treatment for now. Increase DuoNebs to 4 times a day for the next few days (currently has BID scheduled, others are PRN) Observe for changes/fevers/worsening. Does have history of C-Diff, recommend avoiding antibiotics for now unless there is strong suspicion for bacterial infection component.
[2018-09-10] MEDS: LEVOTHYROXINE SODIUM 137 MCG PO SCH (19:18)
[2018-09-10] MEDS: buPROPion 100 MG Tab PO SCH (19:19)
[2018-09-10] MEDS: Simvastatin 10 MG Tab PO SCH (19:20)
[2018-09-11] MEDS: Potassium Chloride 10% 20 MEQ/15 ML Soln 15 ML UD Cup PO SCH ×3 (07:41→19:10)
[2018-09-11] MEDS: Fludrocortisone 0.1 MG Tab PO SCH ×2 (07:41→19:10)
[2018-09-11] MEDS: Metoclopramide 10 MG Tab PO SCH ×2 (07:41→17:08)
[2018-09-11] MEDS: Albuterol/Ipratropium 3.0-0.5 MG/3 ML Neb Soln NEB SCH ×2 (07:41→19:10)
[2018-09-11] MEDS: Citalopram 20 MG Tab PO SCH (07:41)
[2018-09-11] MEDS: Ibuprofen 600 MG Tab PO SCH ×2 (07:42→17:08)
[2018-09-11] MEDS: Furosemide 20 MG Tab PO SCH (07:42)
[2018-09-11] MEDS: Cyanocobalamin (Vitamin B12) 1,000 MCG Tab PO SCH (07:42)
[2018-09-11] MEDS: Niacin 500 MG Tab PO SCH ×2 (07:42→17:08)
[2018-09-11] MEDS: Cholecalciferol (Vitamin D3) 25 MCG Tab PO SCH (07:43)
[2018-09-11] MEDS: Albuterol/Ipratropium 3.0-0.5 MG/3 ML Neb Soln NEB PRN ×2 (11:17→16:35)
[2018-09-11] MEDS: LEVOTHYROXINE SODIUM 137 MCG PO SCH (19:10)
[2018-09-11] MEDS: buPROPion 100 MG Tab PO SCH (19:10)
[2018-09-11] MEDS: Simvastatin 10 MG Tab PO SCH (19:10)
[2018-09-12] MEDS: Albuterol/Ipratropium 3.0-0.5 MG/3 ML Neb Soln NEB SCH ×2 (07:59→19:26)
[2018-09-12] MEDS: Metoclopramide 10 MG Tab PO SCH ×2 (07:59→18:00)
[2018-09-12] MEDS: Citalopram 20 MG Tab PO SCH (07:59)
[2018-09-12] MEDS: Ibuprofen 600 MG Tab PO SCH ×2 (07:59→18:01)
[2018-09-12] MEDS: Furosemide 20 MG Tab PO SCH (07:59)
[2018-09-12] MEDS: Fludrocortisone 0.1 MG Tab PO SCH ×2 (07:59→19:25)
[2018-09-12] MEDS: Cholecalciferol (Vitamin D3) 25 MCG Tab PO SCH (08:00)
[2018-09-12] MEDS: Niacin 500 MG Tab PO SCH ×2 (08:00→18:01)
[2018-09-12] MEDS: Cyanocobalamin (Vitamin B12) 1,000 MCG Tab PO SCH (08:00)
[2018-09-12] MEDS: Potassium Chloride 10% 20 MEQ/15 ML Soln 15 ML UD Cup PO SCH ×3 (08:01→19:26)
[2018-09-12] MEDS: Albuterol/Ipratropium 3.0-0.5 MG/3 ML Neb Soln NEB PRN (11:00)
[2018-09-12] MEDS: LEVOTHYROXINE SODIUM 137 MCG PO SCH (19:25)
[2018-09-12] MEDS: Simvastatin 10 MG Tab PO SCH (19:25)
[2018-09-12] MEDS: buPROPion 100 MG Tab PO SCH (19:25)
[2018-09-13] MEDS: traMADol 50 MG Tab PO PRN (07:36)
[2018-09-13] MEDS: Albuterol/Ipratropium 3.0-0.5 MG/3 ML Neb Soln NEB SCH ×2 (07:37→19:04)
[2018-09-13] MEDS: Metoclopramide 10 MG Tab PO SCH ×2 (07:37→17:17)
[2018-09-13] MEDS: Furosemide 20 MG Tab PO SCH (07:37)
[2018-09-13] MEDS: Citalopram 20 MG Tab PO SCH (07:37)
[2018-09-13] MEDS: Fludrocortisone 0.1 MG Tab PO SCH ×2 (07:37→19:06)
[2018-09-13] MEDS: Ibuprofen 600 MG Tab PO SCH ×2 (07:38→17:17)
[2018-09-13] MEDS: Niacin 500 MG Tab PO SCH ×2 (07:38→17:17)
[2018-09-13] MEDS: Potassium Chloride 10% 20 MEQ/15 ML Soln 15 ML UD Cup PO SCH ×3 (07:38→19:05)
[2018-09-13] MEDS: Cholecalciferol (Vitamin D3) 25 MCG Tab PO SCH (07:39)
[2018-09-13] MEDS: Cyanocobalamin (Vitamin B12) 1,000 MCG Tab PO SCH (07:39)
[2018-09-13] MEDS: Albuterol/Ipratropium 3.0-0.5 MG/3 ML Neb Soln NEB PRN (11:42)
[2018-09-13] MEDS: buPROPion 100 MG Tab PO SCH (19:05)
[2018-09-13] MEDS: LEVOTHYROXINE SODIUM 137 MCG PO SCH (19:05)
[2018-09-13] MEDS: Simvastatin 10 MG Tab PO SCH (19:05)
[2018-09-14] MEDS: Potassium Chloride 10% 20 MEQ/15 ML Soln 15 ML UD Cup PO SCH ×3 (08:10→19:41)
[2018-09-14] MEDS: Metoclopramide 10 MG Tab PO SCH ×2 (08:10→17:30)
[2018-09-14] MEDS: Albuterol/Ipratropium 3.0-0.5 MG/3 ML Neb Soln NEB SCH ×2 (08:10→19:39)
[2018-09-14] MEDS: Citalopram 20 MG Tab PO SCH (08:10)
[2018-09-14] MEDS: Furosemide 20 MG Tab PO SCH (08:11)
[2018-09-14] MEDS: Cyanocobalamin (Vitamin B12) 1,000 MCG Tab PO SCH (08:11)
[2018-09-14] MEDS: Niacin 500 MG Tab PO SCH ×2 (08:11→17:30)
[2018-09-14] MEDS: Ibuprofen 600 MG Tab PO SCH ×2 (08:11→17:30)
[2018-09-14] MEDS: Fludrocortisone 0.1 MG Tab PO SCH ×2 (08:11→19:40)
[2018-09-14] MEDS: Cholecalciferol (Vitamin D3) 25 MCG Tab PO SCH (08:12)
[2018-09-14] MEDS: buPROPion 100 MG Tab PO SCH (19:40)
[2018-09-14] MEDS: LEVOTHYROXINE SODIUM 137 MCG PO SCH (19:40)
[2018-09-14] MEDS: Simvastatin 10 MG Tab PO SCH (19:40)
[2018-09-15] MEDS: Potassium Chloride 10% 20 MEQ/15 ML Soln 15 ML UD Cup PO SCH ×3 (07:47→19:18)
[2018-09-15] MEDS: Metoclopramide 10 MG Tab PO SCH ×2 (07:47→17:04)
[2018-09-15] MEDS: Albuterol/Ipratropium 3.0-0.5 MG/3 ML Neb Soln NEB SCH ×2 (07:47→19:17)
[2018-09-15] MEDS: Citalopram 20 MG Tab PO SCH (07:47)
[2018-09-15] MEDS: Furosemide 20 MG Tab PO SCH (07:48)
[2018-09-15] MEDS: Niacin 500 MG Tab PO SCH ×2 (07:48→17:05)
[2018-09-15] MEDS: Ibuprofen 600 MG Tab PO SCH ×2 (07:48→17:04)
[2018-09-15] MEDS: Fludrocortisone 0.1 MG Tab PO SCH ×2 (07:48→19:17)
[2018-09-15] MEDS: Cyanocobalamin (Vitamin B12) 1,000 MCG Tab PO SCH (07:48)
[2018-09-15] MEDS: Cholecalciferol (Vitamin D3) 25 MCG Tab PO SCH (07:49)
[2018-09-15] MEDS: LEVOTHYROXINE SODIUM 137 MCG PO SCH (19:18)
[2018-09-15] MEDS: buPROPion 100 MG Tab PO SCH (19:18)
[2018-09-15] MEDS: Simvastatin 10 MG Tab PO SCH (19:18)
[2018-09-16] MEDS: Citalopram 20 MG Tab PO SCH (08:09)
[2018-09-16] MEDS: Metoclopramide 10 MG Tab PO SCH ×2 (08:09→17:21)
[2018-09-16] MEDS: Furosemide 20 MG Tab PO SCH (08:10)
[2018-09-16] MEDS: Fludrocortisone 0.1 MG Tab PO SCH ×2 (08:10→19:08)
[2018-09-16] MEDS: Albuterol/Ipratropium 3.0-0.5 MG/3 ML Neb Soln NEB SCH ×2 (08:10→19:09)
[2018-09-16] MEDS: Ibuprofen 600 MG Tab PO SCH ×2 (08:10→17:21)
[2018-09-16] MEDS: Cyanocobalamin (Vitamin B12) 1,000 MCG Tab PO SCH (08:11)
[2018-09-16] MEDS: Niacin 500 MG Tab PO SCH ×2 (08:11→17:21)
[2018-09-16] MEDS: Cholecalciferol (Vitamin D3) 25 MCG Tab PO SCH (08:11)
[2018-09-16] MEDS: Potassium Chloride 10% 20 MEQ/15 ML Soln 15 ML UD Cup PO SCH ×3 (08:12→19:07)
[2018-09-16] MEDS: LEVOTHYROXINE SODIUM 137 MCG PO SCH (19:08)
[2018-09-16] MEDS: Simvastatin 10 MG Tab PO SCH (19:08)
[2018-09-16] MEDS: buPROPion 100 MG Tab PO SCH (19:08)
[2018-09-17] MEDS: Citalopram 20 MG Tab PO SCH (08:13)
[2018-09-17] MEDS: Metoclopramide 10 MG Tab PO SCH ×2 (08:13→17:55)
[2018-09-17] MEDS: Niacin 500 MG Tab PO SCH ×2 (08:14→17:55)
[2018-09-17] MEDS: Furosemide 20 MG Tab PO SCH (08:14)
[2018-09-17] MEDS: Albuterol/Ipratropium 3.0-0.5 MG/3 ML Neb Soln NEB SCH ×2 (08:14→19:54)
[2018-09-17] MEDS: Fludrocortisone 0.1 MG Tab PO SCH ×2 (08:14→19:54)
[2018-09-17] MEDS: Ibuprofen 600 MG Tab PO SCH ×2 (08:14→17:55)
[2018-09-17] MEDS: Cyanocobalamin (Vitamin B12) 1,000 MCG Tab PO SCH (08:15)
[2018-09-17] MEDS: Cholecalciferol (Vitamin D3) 25 MCG Tab PO SCH (08:15)
[2018-09-17] MEDS: Potassium Chloride 10% 20 MEQ/15 ML Soln 15 ML UD Cup PO SCH ×3 (08:16→19:55)
[2018-09-17] MEDS: buPROPion 100 MG Tab PO SCH (19:55)
[2018-09-17] MEDS: LEVOTHYROXINE SODIUM 137 MCG PO SCH (19:55)
[2018-09-17] MEDS: Simvastatin 10 MG Tab PO SCH (19:56)
[2018-09-18] MEDS: Albuterol/Ipratropium 3.0-0.5 MG/3 ML Neb Soln NEB SCH ×2 (08:14→19:23)
[2018-09-18] MEDS: Citalopram 20 MG Tab PO SCH (08:14)
[2018-09-18] MEDS: Metoclopramide 10 MG Tab PO SCH ×2 (08:14→17:21)
[2018-09-18] MEDS: Fludrocortisone 0.1 MG Tab PO SCH ×2 (08:14→19:24)
[2018-09-18] MEDS: Furosemide 20 MG Tab PO SCH (08:15)
[2018-09-18] MEDS: Niacin 500 MG Tab PO SCH ×2 (08:15→17:22)
[2018-09-18] MEDS: Cyanocobalamin (Vitamin B12) 1,000 MCG Tab PO SCH (08:15)
[2018-09-18] MEDS: Ibuprofen 600 MG Tab PO SCH ×2 (08:15→17:21)
[2018-09-18] MEDS: Potassium Chloride 10% 20 MEQ/15 ML Soln 15 ML UD Cup PO SCH ×3 (08:16→19:25)
[2018-09-18] MEDS: Cholecalciferol (Vitamin D3) 25 MCG Tab PO SCH (08:16)
[2018-09-18] MEDS: Simvastatin 10 MG Tab PO SCH (19:24)
[2018-09-18] MEDS: LEVOTHYROXINE SODIUM 137 MCG PO SCH (19:24)
[2018-09-18] MEDS: buPROPion 100 MG Tab PO SCH (19:24)
[2018-09-19] MEDS: Metoclopramide 10 MG Tab PO SCH ×2 (08:02→17:27)
[2018-09-19] MEDS: Citalopram 20 MG Tab PO SCH (08:02)
[2018-09-19] MEDS: Furosemide 20 MG Tab PO SCH (08:02)
[2018-09-19] MEDS: Fludrocortisone 0.1 MG Tab PO SCH ×2 (08:02→19:01)
[2018-09-19] MEDS: Ibuprofen 600 MG Tab PO SCH ×2 (08:02→17:27)
[2018-09-19] MEDS: Potassium Chloride 10% 20 MEQ/15 ML Soln 15 ML UD Cup PO SCH ×3 (08:03→19:02)
[2018-09-19] MEDS: Niacin 500 MG Tab PO SCH ×2 (08:03→17:28)
[2018-09-19] MEDS: Cyanocobalamin (Vitamin B12) 1,000 MCG Tab PO SCH (08:04)
[2018-09-19] MEDS: Cholecalciferol (Vitamin D3) 25 MCG Tab PO SCH (08:05)
[2018-09-19] MEDS: Albuterol/Ipratropium 3.0-0.5 MG/3 ML Neb Soln NEB PRN (08:06)
[2018-09-19] MEDS: Albuterol/Ipratropium 3.0-0.5 MG/3 ML Neb Soln NEB SCH ×2 (08:07→19:01)
--- NOTE | 2018-09-19 13:24 | PCM.SN ---
- Free Text/Narrative Note: Patient + for C-diff. No recent loose stools, afebrile, eating and drinking normally per staff. No acute changes or complaints. Will restart patient on Flagyl 500mg TID for 14 days.
[2018-09-19] MEDS: METRONIDAZOLE 500 MG PO SCH ×2 (14:01→21:04)
[2018-09-19] MEDS: LEVOTHYROXINE SODIUM 137 MCG PO SCH (19:01)
[2018-09-19] MEDS: buPROPion 100 MG Tab PO SCH (19:01)
[2018-09-19] MEDS: Simvastatin 10 MG Tab PO SCH (19:02)
[2018-09-20] MEDS: METRONIDAZOLE 500 MG PO SCH ×3 (06:04→21:07)
[2018-09-20] MEDS: Fludrocortisone 0.1 MG Tab PO SCH ×2 (07:56→19:08)
[2018-09-20] MEDS: Metoclopramide 10 MG Tab PO SCH ×2 (07:56→17:42)
[2018-09-20] MEDS: Citalopram 20 MG Tab PO SCH (07:56)
[2018-09-20] MEDS: Furosemide 20 MG Tab PO SCH (07:56)
[2018-09-20] MEDS: Ibuprofen 600 MG Tab PO SCH ×2 (07:56→17:41)
[2018-09-20] MEDS: Potassium Chloride 10% 20 MEQ/15 ML Soln 15 ML UD Cup PO SCH ×3 (07:57→19:09)
[2018-09-20] MEDS: Niacin 500 MG Tab PO SCH ×2 (07:57→17:41)
[2018-09-20] MEDS: Cholecalciferol (Vitamin D3) 25 MCG Tab PO SCH (07:58)
[2018-09-20] MEDS: Cyanocobalamin (Vitamin B12) 1,000 MCG Tab PO SCH (07:58)
[2018-09-20] MEDS: Acetaminophen 325 MG Tab PO PRN (07:59)
[2018-09-20] MEDS: Albuterol/Ipratropium 3.0-0.5 MG/3 ML Neb Soln NEB SCH ×2 (08:00→19:07)
[2018-09-20] MEDS: LEVOTHYROXINE SODIUM 137 MCG PO SCH (19:08)
[2018-09-20] MEDS: buPROPion 100 MG Tab PO SCH (19:09)
[2018-09-20] MEDS: Simvastatin 10 MG Tab PO SCH (19:09)
[2018-09-21] MEDS: METRONIDAZOLE 500 MG PO SCH ×3 (06:01→21:14)
[2018-09-21] MEDS: Citalopram 20 MG Tab PO SCH (07:33)
[2018-09-21] MEDS: Albuterol/Ipratropium 3.0-0.5 MG/3 ML Neb Soln NEB SCH ×2 (07:33→19:21)
[2018-09-21] MEDS: Fludrocortisone 0.1 MG Tab PO SCH ×2 (07:33→19:21)
[2018-09-21] MEDS: Ibuprofen 600 MG Tab PO SCH ×2 (07:33→17:58)
[2018-09-21] MEDS: Metoclopramide 10 MG Tab PO SCH ×2 (07:33→17:59)
[2018-09-21] MEDS: Furosemide 20 MG Tab PO SCH (07:33)
[2018-09-21] MEDS: Niacin 500 MG Tab PO SCH ×2 (07:34→17:59)
[2018-09-21] MEDS: Cyanocobalamin (Vitamin B12) 1,000 MCG Tab PO SCH (07:34)
[2018-09-21] MEDS: Cholecalciferol (Vitamin D3) 25 MCG Tab PO SCH (07:35)
[2018-09-21] MEDS: Potassium Chloride 10% 20 MEQ/15 ML Soln 15 ML UD Cup PO SCH ×3 (07:36→19:22)
[2018-09-21] MEDS: LEVOTHYROXINE SODIUM 137 MCG PO SCH (19:21)
[2018-09-21] MEDS: Simvastatin 10 MG Tab PO SCH (19:21)
[2018-09-21] MEDS: buPROPion 100 MG Tab PO SCH (19:21)
[2018-09-22] MEDS: METRONIDAZOLE 500 MG PO SCH ×3 (05:50→22:12)
[2018-09-22] MEDS: Citalopram 20 MG Tab PO SCH (08:06)
[2018-09-22] MEDS: Metoclopramide 10 MG Tab PO SCH ×2 (08:06→17:49)
[2018-09-22] MEDS: Fludrocortisone 0.1 MG Tab PO SCH ×2 (08:06→20:00)
[2018-09-22] MEDS: Albuterol/Ipratropium 3.0-0.5 MG/3 ML Neb Soln NEB SCH ×2 (08:06→20:00)
[2018-09-22] MEDS: Niacin 500 MG Tab PO SCH ×2 (08:07→17:49)
[2018-09-22] MEDS: Ibuprofen 600 MG Tab PO SCH ×2 (08:07→17:49)
[2018-09-22] MEDS: Potassium Chloride 10% 20 MEQ/15 ML Soln 15 ML UD Cup PO SCH ×3 (08:07→20:01)
[2018-09-22] MEDS: Furosemide 20 MG Tab PO SCH (08:07)
[2018-09-22] MEDS: Cyanocobalamin (Vitamin B12) 1,000 MCG Tab PO SCH (08:08)
[2018-09-22] MEDS: Cholecalciferol (Vitamin D3) 25 MCG Tab PO SCH (08:09)
[2018-09-22] MEDS: LEVOTHYROXINE SODIUM 137 MCG PO SCH (20:00)
[2018-09-22] MEDS: Simvastatin 10 MG Tab PO SCH (20:01)
[2018-09-22] MEDS: buPROPion 100 MG Tab PO SCH (20:01)
[2018-09-23] MEDS: METRONIDAZOLE 500 MG PO SCH ×3 (06:16→22:33)
[2018-09-23] MEDS: Potassium Chloride 10% 20 MEQ/15 ML Soln 15 ML UD Cup PO SCH ×3 (08:05→19:29)
[2018-09-23] MEDS: Fludrocortisone 0.1 MG Tab PO SCH ×2 (08:06→19:28)
[2018-09-23] MEDS: Citalopram 20 MG Tab PO SCH (08:06)
[2018-09-23] MEDS: Furosemide 20 MG Tab PO SCH (08:06)
[2018-09-23] MEDS: Ibuprofen 600 MG Tab PO SCH ×2 (08:06→17:34)
[2018-09-23] MEDS: Metoclopramide 10 MG Tab PO SCH ×2 (08:06→17:34)
[2018-09-23] MEDS: Albuterol/Ipratropium 3.0-0.5 MG/3 ML Neb Soln NEB SCH ×2 (08:06→19:28)
[2018-09-23] MEDS: Cholecalciferol (Vitamin D3) 25 MCG Tab PO SCH (08:07)
[2018-09-23] MEDS: Niacin 500 MG Tab PO SCH ×2 (08:07→17:34)
[2018-09-23] MEDS: Cyanocobalamin (Vitamin B12) 1,000 MCG Tab PO SCH (08:07)
[2018-09-23] MEDS: LEVOTHYROXINE SODIUM 137 MCG PO SCH (19:28)
[2018-09-23] MEDS: Simvastatin 10 MG Tab PO SCH (19:29)
[2018-09-23] MEDS: buPROPion 100 MG Tab PO SCH (19:29)
[2018-09-24] MEDS: METRONIDAZOLE 500 MG PO SCH ×3 (05:06→21:59)
[2018-09-24] MEDS: Metoclopramide 10 MG Tab PO SCH ×2 (07:24→17:59)
[2018-09-24] MEDS: Citalopram 20 MG Tab PO SCH (07:24)
[2018-09-24] MEDS: Ibuprofen 600 MG Tab PO SCH ×2 (07:25→17:59)
[2018-09-24] MEDS: Fludrocortisone 0.1 MG Tab PO SCH ×2 (07:25→19:53)
[2018-09-24] MEDS: Furosemide 20 MG Tab PO SCH (07:25)
[2018-09-24] MEDS: Albuterol/Ipratropium 3.0-0.5 MG/3 ML Neb Soln NEB SCH ×2 (07:25→19:53)
[2018-09-24] MEDS: Niacin 500 MG Tab PO SCH ×2 (07:26→17:59)
[2018-09-24] MEDS: Cyanocobalamin (Vitamin B12) 1,000 MCG Tab PO SCH (07:26)
[2018-09-24] MEDS: Potassium Chloride 10% 20 MEQ/15 ML Soln 15 ML UD Cup PO SCH ×3 (07:27→19:54)
[2018-09-24] MEDS: Cholecalciferol (Vitamin D3) 25 MCG Tab PO SCH (07:27)
[2018-09-24] MEDS: LEVOTHYROXINE SODIUM 137 MCG PO SCH (19:53)
[2018-09-24] MEDS: Simvastatin 10 MG Tab PO SCH (19:54)
[2018-09-24] MEDS: buPROPion 100 MG Tab PO SCH (19:54)
[2018-09-25] MEDS: METRONIDAZOLE 500 MG PO SCH ×3 (05:06→21:12)
[2018-09-25] MEDS: Metoclopramide 10 MG Tab PO SCH ×2 (08:06→17:24)
[2018-09-25] MEDS: Ibuprofen 600 MG Tab PO SCH ×2 (08:06→17:24)
[2018-09-25] MEDS: Furosemide 20 MG Tab PO SCH (08:06)
[2018-09-25] MEDS: Citalopram 20 MG Tab PO SCH (08:06)
[2018-09-25] MEDS: Albuterol/Ipratropium 3.0-0.5 MG/3 ML Neb Soln NEB SCH ×2 (08:06→19:13)
[2018-09-25] MEDS: Fludrocortisone 0.1 MG Tab PO SCH ×2 (08:06→19:13)
[2018-09-25] MEDS: Niacin 500 MG Tab PO SCH ×2 (08:07→17:25)
[2018-09-25] MEDS: Cyanocobalamin (Vitamin B12) 1,000 MCG Tab PO SCH (08:08)
[2018-09-25] MEDS: Cholecalciferol (Vitamin D3) 25 MCG Tab PO SCH (08:08)
[2018-09-25] MEDS: Potassium Chloride 10% 20 MEQ/15 ML Soln 15 ML UD Cup PO SCH ×3 (08:09→19:14)
[2018-09-25] MEDS: LEVOTHYROXINE SODIUM 137 MCG PO SCH (19:13)
[2018-09-25] MEDS: buPROPion 100 MG Tab PO SCH (19:14)
[2018-09-25] MEDS: Simvastatin 10 MG Tab PO SCH (19:14)
[2018-09-26] MEDS: METRONIDAZOLE 500 MG PO SCH ×3 (05:25→21:24)
[2018-09-26] MEDS: Fludrocortisone 0.1 MG Tab PO SCH ×2 (07:52→19:11)
[2018-09-26] MEDS: Citalopram 20 MG Tab PO SCH (07:52)
[2018-09-26] MEDS: Metoclopramide 10 MG Tab PO SCH ×2 (07:52→17:47)
[2018-09-26] MEDS: Ibuprofen 600 MG Tab PO SCH ×2 (07:53→17:47)
[2018-09-26] MEDS: Albuterol/Ipratropium 3.0-0.5 MG/3 ML Neb Soln NEB SCH ×2 (07:53→19:11)
[2018-09-26] MEDS: Furosemide 20 MG Tab PO SCH (07:53)
[2018-09-26] MEDS: Cyanocobalamin (Vitamin B12) 1,000 MCG Tab PO SCH (07:54)
[2018-09-26] MEDS: Niacin 500 MG Tab PO SCH ×2 (07:54→17:47)
[2018-09-26] MEDS: Cholecalciferol (Vitamin D3) 25 MCG Tab PO SCH (07:55)
[2018-09-26] MEDS: Potassium Chloride 10% 20 MEQ/15 ML Soln 15 ML UD Cup PO SCH ×3 (07:55→19:11)
[2018-09-26] MEDS: LEVOTHYROXINE SODIUM 137 MCG PO SCH (19:11)
[2018-09-26] MEDS: Simvastatin 10 MG Tab PO SCH (19:11)
[2018-09-26] MEDS: buPROPion 100 MG Tab PO SCH (19:11)
[2018-09-27] MEDS: METRONIDAZOLE 500 MG PO SCH ×3 (05:38→21:02)
[2018-09-27] MEDS: Metoclopramide 10 MG Tab PO SCH ×2 (08:11→17:22)
[2018-09-27] MEDS: Citalopram 20 MG Tab PO SCH (08:11)
[2018-09-27] MEDS: Ibuprofen 600 MG Tab PO SCH ×2 (08:12→17:22)
[2018-09-27] MEDS: Fludrocortisone 0.1 MG Tab PO SCH ×2 (08:12→19:15)
[2018-09-27] MEDS: Niacin 500 MG Tab PO SCH ×2 (08:12→17:23)
[2018-09-27] MEDS: Albuterol/Ipratropium 3.0-0.5 MG/3 ML Neb Soln NEB SCH ×2 (08:12→19:16)
[2018-09-27] MEDS: Furosemide 20 MG Tab PO SCH (08:12)
[2018-09-27] MEDS: Cyanocobalamin (Vitamin B12) 1,000 MCG Tab PO SCH (08:13)
[2018-09-27] MEDS: Potassium Chloride 10% 20 MEQ/15 ML Soln 15 ML UD Cup PO SCH ×3 (08:13→19:14)
[2018-09-27] MEDS: Cholecalciferol (Vitamin D3) 25 MCG Tab PO SCH (08:14)
[2018-09-27] MEDS: buPROPion 100 MG Tab PO SCH (19:15)
[2018-09-27] MEDS: Simvastatin 10 MG Tab PO SCH (19:15)
[2018-09-27] MEDS: LEVOTHYROXINE SODIUM 137 MCG PO SCH (19:15)
[2018-09-28] MEDS: METRONIDAZOLE 500 MG PO SCH ×3 (05:15→21:29)
[2018-09-28] MEDS: Albuterol/Ipratropium 3.0-0.5 MG/3 ML Neb Soln NEB SCH ×2 (08:09→19:09)
[2018-09-28] MEDS: Fludrocortisone 0.1 MG Tab PO SCH ×2 (08:09→19:11)
[2018-09-28] MEDS: Metoclopramide 10 MG Tab PO SCH ×2 (08:09→17:50)
[2018-09-28] MEDS: Ibuprofen 600 MG Tab PO SCH ×2 (08:09→17:50)
[2018-09-28] MEDS: Citalopram 20 MG Tab PO SCH (08:09)
[2018-09-28] MEDS: Furosemide 20 MG Tab PO SCH (08:09)
[2018-09-28] MEDS: Niacin 500 MG Tab PO SCH ×2 (08:10→17:51)
[2018-09-28] MEDS: Cholecalciferol (Vitamin D3) 25 MCG Tab PO SCH (08:10)
[2018-09-28] MEDS: Cyanocobalamin (Vitamin B12) 1,000 MCG Tab PO SCH (08:10)
[2018-09-28] MEDS: Potassium Chloride 10% 20 MEQ/15 ML Soln 15 ML UD Cup PO SCH ×3 (08:11→19:12)
[2018-09-28] MEDS: LEVOTHYROXINE SODIUM 137 MCG PO SCH (19:11)
[2018-09-28] MEDS: Simvastatin 10 MG Tab PO SCH (19:11)
[2018-09-28] MEDS: buPROPion 100 MG Tab PO SCH (19:11)
[2018-09-29] MEDS: METRONIDAZOLE 500 MG PO SCH ×3 (05:29→21:03)
[2018-09-29] MEDS: Potassium Chloride 10% 20 MEQ/15 ML Soln 15 ML UD Cup PO SCH ×3 (08:03→19:08)
[2018-09-29] MEDS: Furosemide 20 MG Tab PO SCH (08:04)
[2018-09-29] MEDS: Metoclopramide 10 MG Tab PO SCH ×2 (08:04→17:43)
[2018-09-29] MEDS: Fludrocortisone 0.1 MG Tab PO SCH ×2 (08:04→19:07)
[2018-09-29] MEDS: Albuterol/Ipratropium 3.0-0.5 MG/3 ML Neb Soln NEB SCH ×2 (08:04→19:07)
[2018-09-29] MEDS: Citalopram 20 MG Tab PO SCH (08:04)
[2018-09-29] MEDS: Ibuprofen 600 MG Tab PO SCH ×2 (08:04→17:43)
[2018-09-29] MEDS: Niacin 500 MG Tab PO SCH ×2 (08:05→17:44)
[2018-09-29] MEDS: Cyanocobalamin (Vitamin B12) 1,000 MCG Tab PO SCH (08:05)
[2018-09-29] MEDS: Cholecalciferol (Vitamin D3) 25 MCG Tab PO SCH (08:05)
[2018-09-29] MEDS: buPROPion 100 MG Tab PO SCH (19:07)
[2018-09-29] MEDS: LEVOTHYROXINE SODIUM 137 MCG PO SCH (19:07)
[2018-09-29] MEDS: Simvastatin 10 MG Tab PO SCH (19:07)
[2018-09-29] MEDS: traMADol 50 MG Tab PO PRN (19:12)
[2018-09-30] MEDS: METRONIDAZOLE 500 MG PO SCH ×3 (04:59→23:15)
[2018-09-30] MEDS: Fludrocortisone 0.1 MG Tab PO SCH ×2 (07:37→19:13)
[2018-09-30] MEDS: Citalopram 20 MG Tab PO SCH (07:37)
[2018-09-30] MEDS: Albuterol/Ipratropium 3.0-0.5 MG/3 ML Neb Soln NEB SCH ×2 (07:37→19:14)
[2018-09-30] MEDS: Furosemide 20 MG Tab PO SCH (07:37)
[2018-09-30] MEDS: Ibuprofen 600 MG Tab PO SCH ×2 (07:37→17:29)
[2018-09-30] MEDS: Metoclopramide 10 MG Tab PO SCH ×2 (07:37→17:29)
[2018-09-30] MEDS: Niacin 500 MG Tab PO SCH ×2 (07:38→17:35)
[2018-09-30] MEDS: Potassium Chloride 10% 20 MEQ/15 ML Soln 15 ML UD Cup PO SCH ×3 (07:38→19:13)
[2018-09-30] MEDS: Cholecalciferol (Vitamin D3) 25 MCG Tab PO SCH (07:39)
[2018-09-30] MEDS: Cyanocobalamin (Vitamin B12) 1,000 MCG Tab PO SCH (07:39)
[2018-09-30] MEDS: traMADol 50 MG Tab PO PRN (07:40)
[2018-09-30] MEDS: Simvastatin 10 MG Tab PO SCH (19:13)
[2018-09-30] MEDS: LEVOTHYROXINE SODIUM 137 MCG PO SCH (19:13)
[2018-09-30] MEDS: buPROPion 100 MG Tab PO SCH (19:13)
[2018-10-01] MEDS: METRONIDAZOLE 500 MG PO SCH ×3 (05:38→21:01)
[2018-10-01] MEDS: Metoclopramide 10 MG Tab PO SCH ×2 (08:09→17:44)
[2018-10-01] MEDS: Potassium Chloride 10% 20 MEQ/15 ML Soln 15 ML UD Cup PO SCH ×3 (08:09→19:14)
[2018-10-01] MEDS: Ibuprofen 600 MG Tab PO SCH ×2 (08:10→17:44)
[2018-10-01] MEDS: Citalopram 20 MG Tab PO SCH (08:10)
[2018-10-01] MEDS: Fludrocortisone 0.1 MG Tab PO SCH ×2 (08:10→19:13)
[2018-10-01] MEDS: Albuterol/Ipratropium 3.0-0.5 MG/3 ML Neb Soln NEB SCH ×2 (08:10→19:13)
[2018-10-01] MEDS: Furosemide 20 MG Tab PO SCH (08:10)
[2018-10-01] MEDS: Niacin 500 MG Tab PO SCH ×2 (08:11→17:45)
[2018-10-01] MEDS: Cyanocobalamin (Vitamin B12) 1,000 MCG Tab PO SCH (08:11)
[2018-10-01] MEDS: traMADol 50 MG Tab PO PRN ×2 (08:12→19:19)
[2018-10-01] MEDS: Cholecalciferol (Vitamin D3) 25 MCG Tab PO SCH (08:12)
[2018-10-01] MEDS: LEVOTHYROXINE SODIUM 137 MCG PO SCH (19:13)
[2018-10-01] MEDS: Simvastatin 10 MG Tab PO SCH (19:13)
[2018-10-01] MEDS: buPROPion 100 MG Tab PO SCH (19:14)
[2018-10-02] MEDS: METRONIDAZOLE 500 MG PO SCH ×2 (05:49→13:58)
[2018-10-02] MEDS: Citalopram 20 MG Tab PO SCH (08:13)
[2018-10-02] MEDS: Metoclopramide 10 MG Tab PO SCH ×2 (08:13→17:18)
[2018-10-02] MEDS: Fludrocortisone 0.1 MG Tab PO SCH ×2 (08:13→19:40)
[2018-10-02] MEDS: Albuterol/Ipratropium 3.0-0.5 MG/3 ML Neb Soln NEB SCH ×2 (08:13→19:40)
[2018-10-02] MEDS: Ibuprofen 600 MG Tab PO SCH ×2 (08:14→17:18)
[2018-10-02] MEDS: Niacin 500 MG Tab PO SCH ×2 (08:14→17:19)
[2018-10-02] MEDS: Furosemide 20 MG Tab PO SCH (08:14)
[2018-10-02] MEDS: Cyanocobalamin (Vitamin B12) 1,000 MCG Tab PO SCH (08:14)
[2018-10-02] MEDS: Cholecalciferol (Vitamin D3) 25 MCG Tab PO SCH (08:15)
[2018-10-02] MEDS: Potassium Chloride 10% 20 MEQ/15 ML Soln 15 ML UD Cup PO SCH ×3 (08:15→19:41)
[2018-10-02] MEDS: LEVOTHYROXINE SODIUM 137 MCG PO SCH (19:40)
[2018-10-02] MEDS: Simvastatin 10 MG Tab PO SCH (19:41)
[2018-10-02] MEDS: buPROPion 100 MG Tab PO SCH (19:41)
[2018-10-03] MEDS: METRONIDAZOLE 500 MG PO SCH ×2 (00:46→06:02)
[2018-10-03] MEDS: Albuterol/Ipratropium 3.0-0.5 MG/3 ML Neb Soln NEB SCH ×2 (07:53→19:58)
[2018-10-03] MEDS: Metoclopramide 10 MG Tab PO SCH ×2 (07:53→17:36)
[2018-10-03] MEDS: Citalopram 20 MG Tab PO SCH (07:53)
[2018-10-03] MEDS: Furosemide 20 MG Tab PO SCH (07:54)
[2018-10-03] MEDS: Ibuprofen 600 MG Tab PO SCH ×2 (07:54→17:36)
[2018-10-03] MEDS: Fludrocortisone 0.1 MG Tab PO SCH ×2 (07:54→19:58)
[2018-10-03] MEDS: Niacin 500 MG Tab PO SCH ×2 (07:54→17:37)
[2018-10-03] MEDS: Cyanocobalamin (Vitamin B12) 1,000 MCG Tab PO SCH (07:54)
[2018-10-03] MEDS: Cholecalciferol (Vitamin D3) 25 MCG Tab PO SCH (07:55)
[2018-10-03] MEDS: Potassium Chloride 10% 20 MEQ/15 ML Soln 15 ML UD Cup PO SCH ×3 (07:55→19:58)
[2018-10-03] MEDS: Simvastatin 10 MG Tab PO SCH (19:58)
[2018-10-03] MEDS: LEVOTHYROXINE SODIUM 137 MCG PO SCH (19:58)
[2018-10-03] MEDS: buPROPion 100 MG Tab PO SCH (19:58)
[2018-10-04] MEDS: Citalopram 20 MG Tab PO SCH (07:49)
[2018-10-04] MEDS: Fludrocortisone 0.1 MG Tab PO SCH ×2 (07:49→19:35)
[2018-10-04] MEDS: Metoclopramide 10 MG Tab PO SCH ×2 (07:49→17:26)
[2018-10-04] MEDS: Albuterol/Ipratropium 3.0-0.5 MG/3 ML Neb Soln NEB SCH ×2 (07:49→19:35)
[2018-10-04] MEDS: Ibuprofen 600 MG Tab PO SCH ×2 (07:50→17:26)
[2018-10-04] MEDS: Furosemide 20 MG Tab PO SCH (07:50)
[2018-10-04] MEDS: Niacin 500 MG Tab PO SCH ×2 (07:50→17:27)
[2018-10-04] MEDS: Cyanocobalamin (Vitamin B12) 1,000 MCG Tab PO SCH (07:52)
[2018-10-04] MEDS: Potassium Chloride 10% 20 MEQ/15 ML Soln 15 ML UD Cup PO SCH ×3 (07:52→19:36)
[2018-10-04] MEDS: Cholecalciferol (Vitamin D3) 25 MCG Tab PO SCH (07:52)
[2018-10-04] MEDS: buPROPion 100 MG Tab PO SCH (19:36)
[2018-10-04] MEDS: Simvastatin 10 MG Tab PO SCH (19:36)
[2018-10-04] MEDS: LEVOTHYROXINE SODIUM 137 MCG PO SCH (19:36)
[2018-10-05] MEDS: Furosemide 20 MG Tab PO SCH (08:06)
[2018-10-05] MEDS: Ibuprofen 600 MG Tab PO SCH ×2 (08:06→17:09)
[2018-10-05] MEDS: Fludrocortisone 0.1 MG Tab PO SCH ×2 (08:06→19:26)
[2018-10-05] MEDS: Albuterol/Ipratropium 3.0-0.5 MG/3 ML Neb Soln NEB SCH ×2 (08:06→19:26)
[2018-10-05] MEDS: Metoclopramide 10 MG Tab PO SCH ×2 (08:06→17:09)
[2018-10-05] MEDS: Citalopram 20 MG Tab PO SCH (08:06)
[2018-10-05] MEDS: Niacin 500 MG Tab PO SCH ×2 (08:07→17:09)
[2018-10-05] MEDS: Potassium Chloride 10% 20 MEQ/15 ML Soln 15 ML UD Cup PO SCH ×3 (08:07→19:27)
[2018-10-05] MEDS: Cholecalciferol (Vitamin D3) 25 MCG Tab PO SCH (08:08)
[2018-10-05] MEDS: Cyanocobalamin (Vitamin B12) 1,000 MCG Tab PO SCH (08:08)
[2018-10-05] MEDS: LEVOTHYROXINE SODIUM 137 MCG PO SCH (19:27)
[2018-10-05] MEDS: buPROPion 100 MG Tab PO SCH (19:28)
[2018-10-05] MEDS: Simvastatin 10 MG Tab PO SCH (19:28)
[2018-10-06] MEDS: Citalopram 20 MG Tab PO SCH (07:44)
[2018-10-06] MEDS: Potassium Chloride 10% 20 MEQ/15 ML Soln 15 ML UD Cup PO SCH ×3 (07:44→19:11)
[2018-10-06] MEDS: Fludrocortisone 0.1 MG Tab PO SCH ×2 (07:44→19:10)
[2018-10-06] MEDS: Metoclopramide 10 MG Tab PO SCH ×2 (07:44→17:10)
[2018-10-06] MEDS: Albuterol/Ipratropium 3.0-0.5 MG/3 ML Neb Soln NEB SCH ×2 (07:44→19:09)
[2018-10-06] MEDS: Furosemide 20 MG Tab PO SCH (07:45)
[2018-10-06] MEDS: Ibuprofen 600 MG Tab PO SCH ×2 (07:45→17:10)
[2018-10-06] MEDS: Niacin 500 MG Tab PO SCH ×2 (07:45→17:10)
[2018-10-06] MEDS: Cyanocobalamin (Vitamin B12) 1,000 MCG Tab PO SCH (07:46)
[2018-10-06] MEDS: Cholecalciferol (Vitamin D3) 25 MCG Tab PO SCH (07:46)
[2018-10-06] MEDS: Simvastatin 10 MG Tab PO SCH (19:10)
[2018-10-06] MEDS: LEVOTHYROXINE SODIUM 137 MCG PO SCH (19:10)
[2018-10-06] MEDS: buPROPion 100 MG Tab PO SCH (19:10)
[2018-10-07] MEDS: Potassium Chloride 10% 20 MEQ/15 ML Soln 15 ML UD Cup PO SCH ×3 (08:05→19:13)
[2018-10-07] MEDS: Fludrocortisone 0.1 MG Tab PO SCH ×2 (08:07→19:13)
[2018-10-07] MEDS: Furosemide 20 MG Tab PO SCH (08:07)
[2018-10-07] MEDS: Citalopram 20 MG Tab PO SCH (08:07)
[2018-10-07] MEDS: Metoclopramide 10 MG Tab PO SCH ×2 (08:07→17:20)
[2018-10-07] MEDS: Albuterol/Ipratropium 3.0-0.5 MG/3 ML Neb Soln NEB SCH ×2 (08:08→19:10)
[2018-10-07] MEDS: Ibuprofen 600 MG Tab PO SCH ×2 (08:08→17:20)
[2018-10-07] MEDS: Niacin 500 MG Tab PO SCH ×2 (08:09→17:20)
[2018-10-07] MEDS: Cyanocobalamin (Vitamin B12) 1,000 MCG Tab PO SCH (08:09)
[2018-10-07] MEDS: Cholecalciferol (Vitamin D3) 25 MCG Tab PO SCH (08:10)
[2018-10-07] MEDS: buPROPion 100 MG Tab PO SCH (19:13)
[2018-10-07] MEDS: LEVOTHYROXINE SODIUM 137 MCG PO SCH (19:13)
[2018-10-07] MEDS: Simvastatin 10 MG Tab PO SCH (19:13)
[2018-10-08] MEDS: Citalopram 20 MG Tab PO SCH (07:55)
[2018-10-08] MEDS: Furosemide 20 MG Tab PO SCH (07:55)
[2018-10-08] MEDS: Ibuprofen 600 MG Tab PO SCH ×2 (07:55→17:27)
[2018-10-08] MEDS: Metoclopramide 10 MG Tab PO SCH ×2 (07:55→17:27)
[2018-10-08] MEDS: Fludrocortisone 0.1 MG Tab PO SCH ×2 (07:55→19:10)
[2018-10-08] MEDS: Niacin 500 MG Tab PO SCH ×2 (07:56→17:28)
[2018-10-08] MEDS: Albuterol/Ipratropium 3.0-0.5 MG/3 ML Neb Soln NEB SCH ×2 (07:56→19:11)
[2018-10-08] MEDS: Cholecalciferol (Vitamin D3) 25 MCG Tab PO SCH (07:57)
[2018-10-08] MEDS: Potassium Chloride 10% 20 MEQ/15 ML Soln 15 ML UD Cup PO SCH ×3 (07:57→19:09)
[2018-10-08] MEDS: Cyanocobalamin (Vitamin B12) 1,000 MCG Tab PO SCH (07:58)
[2018-10-08] MEDS: buPROPion 100 MG Tab PO SCH (19:10)
[2018-10-08] MEDS: Simvastatin 10 MG Tab PO SCH (19:10)
[2018-10-08] MEDS: LEVOTHYROXINE SODIUM 137 MCG PO SCH (19:10)
[2018-10-09] MEDS: Albuterol/Ipratropium 3.0-0.5 MG/3 ML Neb Soln NEB SCH ×2 (07:33→19:11)
[2018-10-09] MEDS: Fludrocortisone 0.1 MG Tab PO SCH ×2 (07:33→19:12)
[2018-10-09] MEDS: Metoclopramide 10 MG Tab PO SCH ×2 (07:33→17:42)
[2018-10-09] MEDS: Citalopram 20 MG Tab PO SCH (07:33)
[2018-10-09] MEDS: Furosemide 20 MG Tab PO SCH (07:34)
[2018-10-09] MEDS: Niacin 500 MG Tab PO SCH ×2 (07:34→17:42)
[2018-10-09] MEDS: Ibuprofen 600 MG Tab PO SCH ×2 (07:34→17:42)
[2018-10-09] MEDS: Potassium Chloride 10% 20 MEQ/15 ML Soln 15 ML UD Cup PO SCH ×3 (07:35→19:13)
[2018-10-09] MEDS: Cholecalciferol (Vitamin D3) 25 MCG Tab PO SCH (07:35)
[2018-10-09] MEDS: Cyanocobalamin (Vitamin B12) 1,000 MCG Tab PO SCH (07:35)
[2018-10-09] MEDS: Simvastatin 10 MG Tab PO SCH (19:12)
[2018-10-09] MEDS: buPROPion 100 MG Tab PO SCH (19:12)
[2018-10-09] MEDS: LEVOTHYROXINE SODIUM 137 MCG PO SCH (19:12)
[2018-10-10] MEDS: Albuterol/Ipratropium 3.0-0.5 MG/3 ML Neb Soln NEB SCH ×2 (07:38→19:25)
[2018-10-10] MEDS: Fludrocortisone 0.1 MG Tab PO SCH ×2 (07:38→19:26)
[2018-10-10] MEDS: Metoclopramide 10 MG Tab PO SCH ×2 (07:38→17:22)
[2018-10-10] MEDS: Furosemide 20 MG Tab PO SCH (07:38)
[2018-10-10] MEDS: Ibuprofen 600 MG Tab PO SCH ×2 (07:38→17:22)
[2018-10-10] MEDS: Citalopram 20 MG Tab PO SCH (07:38)
[2018-10-10] MEDS: Potassium Chloride 10% 20 MEQ/15 ML Soln 15 ML UD Cup PO SCH ×3 (07:39→19:27)
[2018-10-10] MEDS: Niacin 500 MG Tab PO SCH ×2 (07:39→17:23)
[2018-10-10] MEDS: Cyanocobalamin (Vitamin B12) 1,000 MCG Tab PO SCH (07:40)
[2018-10-10] MEDS: Cholecalciferol (Vitamin D3) 25 MCG Tab PO SCH (07:41)
[2018-10-10] MEDS: buPROPion 100 MG Tab PO SCH (19:27)
[2018-10-10] MEDS: Simvastatin 10 MG Tab PO SCH (19:27)
[2018-10-10] MEDS: LEVOTHYROXINE SODIUM 137 MCG PO SCH (19:27)
[2018-10-11] MEDS: Fludrocortisone 0.1 MG Tab PO SCH ×2 (08:04→19:30)
[2018-10-11] MEDS: Albuterol/Ipratropium 3.0-0.5 MG/3 ML Neb Soln NEB SCH ×2 (08:04→19:30)
[2018-10-11] MEDS: Citalopram 20 MG Tab PO SCH (08:04)
[2018-10-11] MEDS: Metoclopramide 10 MG Tab PO SCH ×2 (08:04→17:26)
[2018-10-11] MEDS: Niacin 500 MG Tab PO SCH ×2 (08:05→17:27)
[2018-10-11] MEDS: Ibuprofen 600 MG Tab PO SCH ×2 (08:05→17:26)
[2018-10-11] MEDS: Furosemide 20 MG Tab PO SCH (08:05)
[2018-10-11] MEDS: Cholecalciferol (Vitamin D3) 25 MCG Tab PO SCH (08:06)
[2018-10-11] MEDS: Potassium Chloride 10% 20 MEQ/15 ML Soln 15 ML UD Cup PO SCH ×3 (08:06→19:32)
[2018-10-11] MEDS: Cyanocobalamin (Vitamin B12) 1,000 MCG Tab PO SCH (08:06)
[2018-10-11] MEDS: LEVOTHYROXINE SODIUM 137 MCG PO SCH (19:30)
[2018-10-11] MEDS: buPROPion 100 MG Tab PO SCH (19:32)
[2018-10-11] MEDS: Simvastatin 10 MG Tab PO SCH (19:33)
[2018-10-12] MEDS: Metoclopramide 10 MG Tab PO SCH ×2 (08:18→17:49)
[2018-10-12] MEDS: Citalopram 20 MG Tab PO SCH (08:19)
[2018-10-12] MEDS: Albuterol/Ipratropium 3.0-0.5 MG/3 ML Neb Soln NEB SCH ×2 (08:19→19:08)
[2018-10-12] MEDS: Fludrocortisone 0.1 MG Tab PO SCH ×2 (08:20→19:09)
[2018-10-12] MEDS: Furosemide 20 MG Tab PO SCH (08:21)
[2018-10-12] MEDS: Ibuprofen 600 MG Tab PO SCH ×2 (08:22→17:49)
[2018-10-12] MEDS: Niacin 500 MG Tab PO SCH ×2 (08:23→17:52)
[2018-10-12] MEDS: Potassium Chloride 10% 20 MEQ/15 ML Soln 15 ML UD Cup PO SCH ×3 (08:25→19:09)
[2018-10-12] MEDS: Cyanocobalamin (Vitamin B12) 1,000 MCG Tab PO SCH (08:26)
[2018-10-12] MEDS: Cholecalciferol (Vitamin D3) 25 MCG Tab PO SCH (08:27)
[2018-10-12] MEDS: Simvastatin 10 MG Tab PO SCH (19:09)
[2018-10-12] MEDS: LEVOTHYROXINE SODIUM 137 MCG PO SCH (19:09)
[2018-10-12] MEDS: buPROPion 100 MG Tab PO SCH (19:09)
[2018-10-13] MEDS: Citalopram 20 MG Tab PO SCH (07:51)
[2018-10-13] MEDS: Metoclopramide 10 MG Tab PO SCH ×2 (07:51→17:09)
[2018-10-13] MEDS: Ibuprofen 600 MG Tab PO SCH ×2 (07:52→17:10)
[2018-10-13] MEDS: Fludrocortisone 0.1 MG Tab PO SCH ×2 (07:52→19:28)
[2018-10-13] MEDS: Albuterol/Ipratropium 3.0-0.5 MG/3 ML Neb Soln NEB SCH ×2 (07:52→19:28)
[2018-10-13] MEDS: Furosemide 20 MG Tab PO SCH (07:52)
[2018-10-13] MEDS: Potassium Chloride 10% 20 MEQ/15 ML Soln 15 ML UD Cup PO SCH ×3 (07:53→19:29)
[2018-10-13] MEDS: Niacin 500 MG Tab PO SCH ×2 (07:53→17:10)
[2018-10-13] MEDS: Cholecalciferol (Vitamin D3) 25 MCG Tab PO SCH (07:54)
[2018-10-13] MEDS: Cyanocobalamin (Vitamin B12) 1,000 MCG Tab PO SCH (07:54)
[2018-10-13] MEDS: LEVOTHYROXINE SODIUM 137 MCG PO SCH (19:28)
[2018-10-13] MEDS: buPROPion 100 MG Tab PO SCH (19:29)
[2018-10-13] MEDS: Simvastatin 10 MG Tab PO SCH (19:30)
[2018-10-14] MEDS: Citalopram 20 MG Tab PO SCH (08:06)
[2018-10-14] MEDS: Furosemide 20 MG Tab PO SCH (08:06)
[2018-10-14] MEDS: Ibuprofen 600 MG Tab PO SCH ×2 (08:06→18:23)
[2018-10-14] MEDS: Metoclopramide 10 MG Tab PO SCH ×2 (08:06→18:23)
[2018-10-14] MEDS: Fludrocortisone 0.1 MG Tab PO SCH ×2 (08:06→19:08)
[2018-10-14] MEDS: Albuterol/Ipratropium 3.0-0.5 MG/3 ML Neb Soln NEB SCH ×2 (08:06→19:11)
[2018-10-14] MEDS: Niacin 500 MG Tab PO SCH ×2 (08:07→18:23)
[2018-10-14] MEDS: Cyanocobalamin (Vitamin B12) 1,000 MCG Tab PO SCH (08:07)
[2018-10-14] MEDS: Cholecalciferol (Vitamin D3) 25 MCG Tab PO SCH (08:07)
[2018-10-14] MEDS: Potassium Chloride 10% 20 MEQ/15 ML Soln 15 ML UD Cup PO SCH ×3 (08:08→19:08)
[2018-10-14] MEDS: buPROPion 100 MG Tab PO SCH (19:08)
[2018-10-14] MEDS: LEVOTHYROXINE SODIUM 137 MCG PO SCH (19:08)
[2018-10-14] MEDS: Simvastatin 10 MG Tab PO SCH (19:08)
[2018-10-15] MEDS: Fludrocortisone 0.1 MG Tab PO SCH ×2 (08:01→19:14)
[2018-10-15] MEDS: Ibuprofen 600 MG Tab PO SCH ×2 (08:01→18:00)
[2018-10-15] MEDS: Furosemide 20 MG Tab PO SCH (08:01)
[2018-10-15] MEDS: Citalopram 20 MG Tab PO SCH (08:01)
[2018-10-15] MEDS: Metoclopramide 10 MG Tab PO SCH (08:01)
[2018-10-15] MEDS: Cholecalciferol (Vitamin D3) 25 MCG Tab PO SCH (08:02)
[2018-10-15] MEDS: Cyanocobalamin (Vitamin B12) 1,000 MCG Tab PO SCH (08:02)
[2018-10-15] MEDS: Niacin 500 MG Tab PO SCH ×2 (08:02→18:00)
[2018-10-15] MEDS: Potassium Chloride 10% 20 MEQ/15 ML Soln 15 ML UD Cup PO SCH ×3 (08:03→19:16)
[2018-10-15] MEDS: Albuterol/Ipratropium 3.0-0.5 MG/3 ML Neb Soln NEB SCH ×2 (08:04→19:14)
[2018-10-15] MEDS: buPROPion 100 MG Tab PO SCH (19:15)
[2018-10-15] MEDS: LEVOTHYROXINE SODIUM 137 MCG PO SCH (19:15)
[2018-10-15] MEDS: Simvastatin 10 MG Tab PO SCH (19:15)
[2018-10-16] MEDS: Ibuprofen 600 MG Tab PO SCH ×2 (07:51→17:54)
[2018-10-16] MEDS: Metoclopramide 10 MG Tab PO SCH ×3 (07:52→17:56)
[2018-10-16] MEDS: Citalopram 20 MG Tab PO SCH (07:52)
[2018-10-16] MEDS: Furosemide 20 MG Tab PO SCH (07:52)
[2018-10-16] MEDS: Fludrocortisone 0.1 MG Tab PO SCH ×2 (07:52→19:43)
[2018-10-16] MEDS: Cyanocobalamin (Vitamin B12) 1,000 MCG Tab PO SCH (07:53)
[2018-10-16] MEDS: Albuterol/Ipratropium 3.0-0.5 MG/3 ML Neb Soln NEB SCH ×2 (07:53→19:43)
[2018-10-16] MEDS: Niacin 500 MG Tab PO SCH ×2 (07:53→17:53)
[2018-10-16] MEDS: Cholecalciferol (Vitamin D3) 25 MCG Tab PO SCH (07:54)
[2018-10-16] MEDS: Potassium Chloride 10% 20 MEQ/15 ML Soln 15 ML UD Cup PO SCH ×3 (07:55→19:43)
[2018-10-16] MEDS: traMADol 50 MG Tab PO PRN (11:50)
[2018-10-16] MEDS: LEVOTHYROXINE SODIUM 137 MCG PO SCH (19:43)
[2018-10-16] MEDS: Simvastatin 10 MG Tab PO SCH (19:44)
[2018-10-16] MEDS: buPROPion 100 MG Tab PO SCH (19:44)
[2018-10-17] MEDS: Potassium Chloride 10% 20 MEQ/15 ML Soln 15 ML UD Cup PO SCH ×3 (07:25→19:26)
[2018-10-17] MEDS: Furosemide 20 MG Tab PO SCH (07:26)
[2018-10-17] MEDS: Citalopram 20 MG Tab PO SCH (07:26)
[2018-10-17] MEDS: Fludrocortisone 0.1 MG Tab PO SCH ×2 (07:26→19:26)
[2018-10-17] MEDS: Metoclopramide 10 MG Tab PO SCH ×2 (07:26→17:22)
[2018-10-17] MEDS: Albuterol/Ipratropium 3.0-0.5 MG/3 ML Neb Soln NEB SCH ×2 (07:26→19:25)
[2018-10-17] MEDS: Ibuprofen 600 MG Tab PO SCH ×2 (07:26→17:22)
[2018-10-17] MEDS: Cyanocobalamin (Vitamin B12) 1,000 MCG Tab PO SCH (07:27)
[2018-10-17] MEDS: Cholecalciferol (Vitamin D3) 25 MCG Tab PO SCH (07:27)
[2018-10-17] MEDS: Niacin 500 MG Tab PO SCH ×2 (07:27→17:22)
[2018-10-17] MEDS: LEVOTHYROXINE SODIUM 137 MCG PO SCH (19:26)
[2018-10-17] MEDS: buPROPion 100 MG Tab PO SCH (19:27)
[2018-10-17] MEDS: Simvastatin 10 MG Tab PO SCH (19:27)
[2018-10-18] MEDS: Potassium Chloride 10% 20 MEQ/15 ML Soln 15 ML UD Cup PO SCH ×3 (07:30→19:22)
[2018-10-18] MEDS: Albuterol/Ipratropium 3.0-0.5 MG/3 ML Neb Soln NEB SCH ×2 (07:31→19:16)
[2018-10-18] MEDS: Ibuprofen 600 MG Tab PO SCH ×2 (07:31→17:23)
[2018-10-18] MEDS: Furosemide 20 MG Tab PO SCH (07:31)
[2018-10-18] MEDS: Fludrocortisone 0.1 MG Tab PO SCH ×2 (07:31→19:21)
[2018-10-18] MEDS: Citalopram 20 MG Tab PO SCH (07:31)
[2018-10-18] MEDS: Metoclopramide 10 MG Tab PO SCH ×2 (07:31→17:23)
[2018-10-18] MEDS: Niacin 500 MG Tab PO SCH ×2 (07:32→17:23)
[2018-10-18] MEDS: Cyanocobalamin (Vitamin B12) 1,000 MCG Tab PO SCH (07:32)
[2018-10-18] MEDS: Cholecalciferol (Vitamin D3) 25 MCG Tab PO SCH (07:33)
[2018-10-18] MEDS: buPROPion 100 MG Tab PO SCH (19:22)
[2018-10-18] MEDS: LEVOTHYROXINE SODIUM 137 MCG PO SCH (19:22)
[2018-10-18] MEDS: Simvastatin 10 MG Tab PO SCH (19:23)
[2018-10-19] MEDS: Potassium Chloride 10% 20 MEQ/15 ML Soln 15 ML UD Cup PO SCH ×3 (07:42→19:09)
[2018-10-19] MEDS: Citalopram 20 MG Tab PO SCH (07:42)
[2018-10-19] MEDS: Metoclopramide 10 MG Tab PO SCH ×2 (07:42→17:16)
[2018-10-19] MEDS: Fludrocortisone 0.1 MG Tab PO SCH ×2 (07:42→19:08)
[2018-10-19] MEDS: Albuterol/Ipratropium 3.0-0.5 MG/3 ML Neb Soln NEB SCH ×2 (07:42→19:08)
[2018-10-19] MEDS: Ibuprofen 600 MG Tab PO SCH ×2 (07:43→17:16)
[2018-10-19] MEDS: Furosemide 20 MG Tab PO SCH (07:43)
[2018-10-19] MEDS: Niacin 500 MG Tab PO SCH ×2 (07:45→17:17)
[2018-10-19] MEDS: Cyanocobalamin (Vitamin B12) 1,000 MCG Tab PO SCH (07:46)
[2018-10-19] MEDS: Cholecalciferol (Vitamin D3) 25 MCG Tab PO SCH (07:46)
[2018-10-19] MEDS: LEVOTHYROXINE SODIUM 137 MCG PO SCH (19:08)
[2018-10-19] MEDS: buPROPion 100 MG Tab PO SCH (19:08)
[2018-10-19] MEDS: Simvastatin 10 MG Tab PO SCH (19:09)
[2018-10-20] MEDS: Metoclopramide 10 MG Tab PO SCH ×2 (07:44→17:07)
[2018-10-20] MEDS: Citalopram 20 MG Tab PO SCH (07:44)
[2018-10-20] MEDS: Furosemide 20 MG Tab PO SCH (07:45)
[2018-10-20] MEDS: Ibuprofen 600 MG Tab PO SCH ×2 (07:45→17:07)
[2018-10-20] MEDS: Niacin 500 MG Tab PO SCH ×2 (07:45→17:07)
[2018-10-20] MEDS: Albuterol/Ipratropium 3.0-0.5 MG/3 ML Neb Soln NEB SCH ×2 (07:45→19:19)
[2018-10-20] MEDS: Fludrocortisone 0.1 MG Tab PO SCH ×2 (07:45→19:19)
[2018-10-20] MEDS: Cyanocobalamin (Vitamin B12) 1,000 MCG Tab PO SCH (07:46)
[2018-10-20] MEDS: Potassium Chloride 10% 20 MEQ/15 ML Soln 15 ML UD Cup PO SCH ×3 (07:46→19:20)
[2018-10-20] MEDS: Cholecalciferol (Vitamin D3) 25 MCG Tab PO SCH (07:46)
[2018-10-20] MEDS: Simvastatin 10 MG Tab PO SCH (19:19)
[2018-10-20] MEDS: buPROPion 100 MG Tab PO SCH (19:19)
[2018-10-20] MEDS: LEVOTHYROXINE SODIUM 137 MCG PO SCH (19:19)
[2018-10-21] MEDS: Metoclopramide 10 MG Tab PO SCH ×2 (08:15→18:00)
[2018-10-21] MEDS: Furosemide 20 MG Tab PO SCH (08:15)
[2018-10-21] MEDS: Citalopram 20 MG Tab PO SCH (08:15)
[2018-10-21] MEDS: Fludrocortisone 0.1 MG Tab PO SCH ×2 (08:15→19:25)
[2018-10-21] MEDS: Albuterol/Ipratropium 3.0-0.5 MG/3 ML Neb Soln NEB SCH ×2 (08:15→19:24)
[2018-10-21] MEDS: Ibuprofen 600 MG Tab PO SCH ×2 (08:15→18:00)
[2018-10-21] MEDS: Niacin 500 MG Tab PO SCH ×2 (08:16→18:00)
[2018-10-21] MEDS: Cholecalciferol (Vitamin D3) 25 MCG Tab PO SCH (08:17)
[2018-10-21] MEDS: Cyanocobalamin (Vitamin B12) 1,000 MCG Tab PO SCH (08:17)
[2018-10-21] MEDS: Potassium Chloride 10% 20 MEQ/15 ML Soln 15 ML UD Cup PO SCH ×3 (08:17→19:25)
[2018-10-21] MEDS: buPROPion 100 MG Tab PO SCH (19:25)
[2018-10-21] MEDS: Simvastatin 10 MG Tab PO SCH (19:25)
[2018-10-21] MEDS: LEVOTHYROXINE SODIUM 137 MCG PO SCH (19:25)
[2018-10-22] MEDS: Albuterol/Ipratropium 3.0-0.5 MG/3 ML Neb Soln NEB SCH ×2 (08:00→19:17)
[2018-10-22] MEDS: Metoclopramide 10 MG Tab PO SCH ×2 (08:00→17:26)
[2018-10-22] MEDS: Fludrocortisone 0.1 MG Tab PO SCH ×2 (08:00→19:18)
[2018-10-22] MEDS: Furosemide 20 MG Tab PO SCH (08:00)
[2018-10-22] MEDS: Citalopram 20 MG Tab PO SCH (08:00)
[2018-10-22] MEDS: Ibuprofen 600 MG Tab PO SCH ×2 (08:00→17:26)
[2018-10-22] MEDS: Niacin 500 MG Tab PO SCH ×2 (08:01→17:26)
[2018-10-22] MEDS: Cholecalciferol (Vitamin D3) 25 MCG Tab PO SCH (08:01)
[2018-10-22] MEDS: Cyanocobalamin (Vitamin B12) 1,000 MCG Tab PO SCH (08:01)
[2018-10-22] MEDS: Potassium Chloride 10% 20 MEQ/15 ML Soln 15 ML UD Cup PO SCH ×3 (08:02→19:18)
[2018-10-22] MEDS: buPROPion 100 MG Tab PO SCH (19:17)
[2018-10-22] MEDS: Simvastatin 10 MG Tab PO SCH (19:18)
[2018-10-22] MEDS: LEVOTHYROXINE SODIUM 137 MCG PO SCH (19:18)
[2018-10-22] MEDS: traMADol 50 MG Tab PO PRN (19:22)
[2018-10-23] MEDS: Citalopram 20 MG Tab PO SCH (07:59)
[2018-10-23] MEDS: Metoclopramide 10 MG Tab PO SCH ×2 (07:59→17:57)
[2018-10-23] MEDS: Fludrocortisone 0.1 MG Tab PO SCH ×2 (07:59→19:15)
[2018-10-23] MEDS: Furosemide 20 MG Tab PO SCH (07:59)
[2018-10-23] MEDS: Albuterol/Ipratropium 3.0-0.5 MG/3 ML Neb Soln NEB SCH ×2 (07:59→19:16)
[2018-10-23] MEDS: Ibuprofen 600 MG Tab PO SCH ×2 (07:59→17:57)
[2018-10-23] MEDS: Cyanocobalamin (Vitamin B12) 1,000 MCG Tab PO SCH (08:00)
[2018-10-23] MEDS: Niacin 500 MG Tab PO SCH ×2 (08:00→17:57)
[2018-10-23] MEDS: Cholecalciferol (Vitamin D3) 25 MCG Tab PO SCH (08:00)
[2018-10-23] MEDS: Potassium Chloride 10% 20 MEQ/15 ML Soln 15 ML UD Cup PO SCH ×3 (08:01→19:16)
[2018-10-23] MEDS: traMADol 50 MG Tab PO PRN (09:27)
[2018-10-23] MEDS: buPROPion 100 MG Tab PO SCH (19:15)
[2018-10-23] MEDS: LEVOTHYROXINE SODIUM 137 MCG PO SCH (19:15)
[2018-10-23] MEDS: Simvastatin 10 MG Tab PO SCH (19:15)
[2018-10-24] MEDS: Metoclopramide 10 MG Tab PO SCH ×2 (07:46→17:20)
[2018-10-24] MEDS: Fludrocortisone 0.1 MG Tab PO SCH ×2 (07:46→19:05)
[2018-10-24] MEDS: Albuterol/Ipratropium 3.0-0.5 MG/3 ML Neb Soln NEB SCH ×2 (07:46→19:06)
[2018-10-24] MEDS: Citalopram 20 MG Tab PO SCH (07:46)
[2018-10-24] MEDS: Ibuprofen 600 MG Tab PO SCH ×2 (07:47→17:20)
[2018-10-24] MEDS: Niacin 500 MG Tab PO SCH ×2 (07:47→17:20)
[2018-10-24] MEDS: Cyanocobalamin (Vitamin B12) 1,000 MCG Tab PO SCH (07:47)
[2018-10-24] MEDS: Furosemide 20 MG Tab PO SCH (07:47)
[2018-10-24] MEDS: Cholecalciferol (Vitamin D3) 25 MCG Tab PO SCH (07:48)
[2018-10-24] MEDS: Potassium Chloride 10% 20 MEQ/15 ML Soln 15 ML UD Cup PO SCH ×3 (07:49→19:06)
[2018-10-24] MEDS: Acetaminophen 325 MG Tab PO PRN (15:00)
[2018-10-24] MEDS: Simvastatin 10 MG Tab PO SCH (19:04)
[2018-10-24] MEDS: buPROPion 100 MG Tab PO SCH (19:05)
[2018-10-24] MEDS: LEVOTHYROXINE SODIUM 137 MCG PO SCH (19:05)
[2018-10-25] MEDS: Furosemide 20 MG Tab PO SCH (07:57)
[2018-10-25] MEDS: Citalopram 20 MG Tab PO SCH (07:57)
[2018-10-25] MEDS: Albuterol/Ipratropium 3.0-0.5 MG/3 ML Neb Soln NEB SCH ×2 (07:57→19:04)
[2018-10-25] MEDS: Fludrocortisone 0.1 MG Tab PO SCH ×2 (07:57→19:05)
[2018-10-25] MEDS: Metoclopramide 10 MG Tab PO SCH ×2 (07:57→17:16)
[2018-10-25] MEDS: Niacin 500 MG Tab PO SCH ×2 (07:58→17:17)
[2018-10-25] MEDS: Ibuprofen 600 MG Tab PO SCH ×2 (07:58→17:16)
[2018-10-25] MEDS: Cyanocobalamin (Vitamin B12) 1,000 MCG Tab PO SCH (07:58)
[2018-10-25] MEDS: Potassium Chloride 10% 20 MEQ/15 ML Soln 15 ML UD Cup PO SCH ×3 (07:59→19:06)
[2018-10-25] MEDS: Cholecalciferol (Vitamin D3) 25 MCG Tab PO SCH (07:59)
[2018-10-25] MEDS: LEVOTHYROXINE SODIUM 137 MCG PO SCH (19:05)
[2018-10-25] MEDS: Simvastatin 10 MG Tab PO SCH (19:05)
[2018-10-25] MEDS: buPROPion 100 MG Tab PO SCH (19:05)
[2018-10-26] MEDS: Fludrocortisone 0.1 MG Tab PO SCH ×2 (07:52→19:01)
[2018-10-26] MEDS: Citalopram 20 MG Tab PO SCH (07:52)
[2018-10-26] MEDS: Metoclopramide 10 MG Tab PO SCH ×2 (07:52→17:55)
[2018-10-26] MEDS: Albuterol/Ipratropium 3.0-0.5 MG/3 ML Neb Soln NEB SCH ×2 (07:53→19:01)
[2018-10-26] MEDS: Furosemide 20 MG Tab PO SCH (07:54)
[2018-10-26] MEDS: Ibuprofen 600 MG Tab PO SCH ×2 (07:54→17:55)
[2018-10-26] MEDS: Potassium Chloride 10% 20 MEQ/15 ML Soln 15 ML UD Cup PO SCH ×3 (07:56→19:01)
[2018-10-26] MEDS: Niacin 500 MG Tab PO SCH ×2 (07:57→17:55)
[2018-10-26] MEDS: Cyanocobalamin (Vitamin B12) 1,000 MCG Tab PO SCH (07:58)
[2018-10-26] MEDS: Cholecalciferol (Vitamin D3) 25 MCG Tab PO SCH (07:58)
[2018-10-26] MEDS: traMADol 50 MG Tab PO PRN (07:59)
[2018-10-26] MEDS: buPROPion 100 MG Tab PO SCH (19:01)
[2018-10-26] MEDS: Simvastatin 10 MG Tab PO SCH (19:01)
[2018-10-26] MEDS: LEVOTHYROXINE SODIUM 137 MCG PO SCH (19:01)
[2018-10-27] MEDS: Citalopram 20 MG Tab PO SCH (07:45)
[2018-10-27] MEDS: Potassium Chloride 10% 20 MEQ/15 ML Soln 15 ML UD Cup PO SCH ×3 (07:45→19:41)
[2018-10-27] MEDS: Metoclopramide 10 MG Tab PO SCH ×2 (07:45→17:12)
[2018-10-27] MEDS: Fludrocortisone 0.1 MG Tab PO SCH ×2 (07:45→19:41)
[2018-10-27] MEDS: Albuterol/Ipratropium 3.0-0.5 MG/3 ML Neb Soln NEB SCH ×2 (07:45→19:40)
[2018-10-27] MEDS: Niacin 500 MG Tab PO SCH ×2 (07:46→17:12)
[2018-10-27] MEDS: Ibuprofen 600 MG Tab PO SCH ×2 (07:46→17:12)
[2018-10-27] MEDS: Cyanocobalamin (Vitamin B12) 1,000 MCG Tab PO SCH (07:46)
[2018-10-27] MEDS: Cholecalciferol (Vitamin D3) 25 MCG Tab PO SCH (07:46)
[2018-10-27] MEDS: Furosemide 20 MG Tab PO SCH (07:46)
[2018-10-27] MEDS: traMADol 50 MG Tab PO PRN (08:46)
[2018-10-27] MEDS: LEVOTHYROXINE SODIUM 137 MCG PO SCH (19:41)
[2018-10-27] MEDS: Simvastatin 10 MG Tab PO SCH (19:42)
[2018-10-27] MEDS: buPROPion 100 MG Tab PO SCH (19:42)
[2018-10-28] MEDS: Potassium Chloride 10% 20 MEQ/15 ML Soln 15 ML UD Cup PO SCH ×3 (08:03→19:35)
[2018-10-28] MEDS: traMADol 50 MG Tab PO PRN (08:04)
[2018-10-28] MEDS: Furosemide 20 MG Tab PO SCH (08:05)
[2018-10-28] MEDS: Fludrocortisone 0.1 MG Tab PO SCH ×2 (08:05→19:35)
[2018-10-28] MEDS: Albuterol/Ipratropium 3.0-0.5 MG/3 ML Neb Soln NEB SCH ×2 (08:05→19:35)
[2018-10-28] MEDS: Citalopram 20 MG Tab PO SCH (08:05)
[2018-10-28] MEDS: Metoclopramide 10 MG Tab PO SCH ×2 (08:05→17:12)
[2018-10-28] MEDS: Niacin 500 MG Tab PO SCH ×2 (08:06→17:13)
[2018-10-28] MEDS: Ibuprofen 600 MG Tab PO SCH ×2 (08:06→17:12)
[2018-10-28] MEDS: Cyanocobalamin (Vitamin B12) 1,000 MCG Tab PO SCH (08:07)
[2018-10-28] MEDS: Cholecalciferol (Vitamin D3) 25 MCG Tab PO SCH (08:07)
--- NOTE | 2018-10-28 11:27 | PCM.PN ---
- General Info Date of Service: 10/28/18 Admission Dx/Problem (Free Text): Myotonic dystrophy Subjective Update: Recurrent C. difficile infections Functional Status: Reports: Pain Controlled, Tolerating Diet, Ambulating, Urinating, Incentive Spirometry. Denies: New Symptoms Pain Score: 0 - Review of Systems General: Reports: Weakness (Stable generalized). Denies: Fever, Fatigue, Malaise, Chills, Night Sweats, Appetite (Good) HEENT: Reports: No Symptoms. Denies: Ear Pain, Eye Pain, Headaches, Post Nasal Drip, Sinus Congestion, Sore Throat, Visual Changes Pulmonary: Reports: No Symptoms. Denies: Shortness of Breath, Pleuritic Chest Pain, Cough, Sputum, Wheezing Cardiovascular: Reports: Edema (Stable dependent). Denies: Chest Pain, Palpitations, Dyspnea on Exertion, Orthopnea, Lightheadedness Gastrointestinal: Reports: No Symptoms, Other (Well-formed stools despite recent C. difficile infection). Denies: Abdominal Pain, Constipation, Decreased Appetite, Diarrhea, Difficulty Swallowing, Flatus, Hematochezia, Melena, Nausea, Vomiting Genitourinary: Reports: No Symptoms. Denies: Dysuria, Frequency, Burning, Urgency, Incontinence, Hematuria, Retention, Flank Pain Musculoskeletal: Reports: No Symptoms. Denies: Neck Pain, Shoulder Pain, Arm Pain, Back Pain, Leg Pain, Joint Swelling Skin: Reports: No Symptoms. Denies: Diaphoresis, Bruising, Pruritis Neurological: Reports: Weakness (Stable chronic). Denies: Confusion, Dizziness , Headache, Numbness, Paresthesia, Tingling Psychiatric: Reports: No Symptoms. Denies: Confusion, Depression, Anxiety, Agitation, Cravings, Hallucinations, Homicidal Ideation - Patient Data Vitals - Most Recent: Last Vital Signs Temp 36.4 C 10/27/18 08:00 Pulse 64 10/27/18 08:00 Resp 17 10/27/18 08:00 BP 110/55 L 10/27/18 08:00 Pulse Ox 92 L 10/27/18 08:00 Weight - Most Recent: 100.471 kg (Down 1.4 kg during the last month) I&O - Last 24 Hours: Intake & Output 10/27/18 10/28/18 10/28/18 22:59 06:59 14:59 Intake Total 150 120 960 Balance 150 120 960 Imaging Impressions - Last 24 Hours: None Lab Results Last 24 Hours: None Sandor Results Last 24 Hours: Note previous positive stool for H. pylori antigen on 09/17/18 Med Orders - Current: Current Medications Acetaminophen (Tylenol) 650 mg PO Q4H PRN PRN Reason: Pain Last Admin: 10/24/18 15:00 Dose: 650 mg Al Hydroxide/Mg Hydroxide (Mag-Al Plus) 30 ml PO Q4H PRN PRN Reason: Indigestion Albuterol/Ipratropium (Duoneb 3.0-0.5 Mg/3 Ml) 3 ml NEB BIDRT [facility] Last Admin: 10/28/18 08:05 Dose: 3 ml Albuterol/Ipratropium (Duoneb 3.0-0.5 Mg/3 Ml) 3 ml NEB Q4HRRT PRN PRN Reason: Dyspnea Last Admin: 09/19/18 08:06 Dose: 3 ml Bupropion HCl (Wellbutrin) 150 mg PO BEDTIME [facility] Last Admin: 10/27/18 19:42 Dose: 150 mg Calcium Carbonate/Glycine (Tums Extra Strength) 750 mg PO Q2HR PRN PRN Reason: Indigestion Last Admin: 08/19/18 06:17 Dose: 750 mg Cholecalciferol (Vitamin D3) [facility] Last Admin: 10/28/18 08:07 Dose: 1,000 units Citalopram Hydrobromide (Celexa) 20 [facility] Last Admin: 10/28/18 08:05 Dose: 20 mg Clotrimazole (Lotrimin Af 1% Crm) 1 gm TOP BID PRN PRN Reason: Rash Last Admin: 07/18/18 08:50 Dose: 1 applic Cyanocobalamin (Vitamin B12) 1,000 mcg [facility] Last Admin: 10/28/18 08:07 Dose: 1,000 mcg Diphenhydramine HCl (Benadryl) 25 mg PO Q4H PRN PRN Reason: Itching Fludrocortisone Acetate (Florinef) 0.1 mg PO BEDTIME [facility] Last Admin: 10/27/18 19:41 Dose: 0.1 mg Fludrocortisone Acetate (Florinef) 0.2 mg PO [facility] Last Admin: 10/28/18 08:05 Dose: 0.2 mg Furosemide (Lasix) 20 mg PO DAILY [facility] Last Admin: 10/28/18 08:05 Dose: 20 mg Guaifenesin/Dextromethorphan (Robitussin Dm) 10 ml PO Q4H PRN PRN Reason: Cough Last Admin: 09/09/18 19:27 Dose: 10 ml Ibuprofen (Motrin) 600 mg PO BID [facility] Last Admin: 10/28/18 08:06 Dose: 600 mg Ibuprofen (Motrin) 600 mg PO Q6H PRN PRN Reason: Breakthrough Pain Last Admin: 08/12/18 05:33 Dose: 600 mg Metoclopramide HCl (Reglan) 10 mg PO BIDAC [facility] Last Admin: 10/28/18 08:05 Dose: 10 mg Niacin (Niacin) 500 mg PO BID [facility] Last Admin: 10/28/18 08:06 Dose: 500 mg Levothyroxine Sodium (137 Mcg Tablets) 137 mcg PO BEDTIME [facility] Last Admin: 10/27/18 19:41 Dose: 137 mcg Potassium Chloride (Potassium Chloride Solution) 40 meq PO TID@08,,20 [facility] Last Admin: 10/28/18 08:03 Dose: 40 meq Simvastatin (Zocor) 10 mg PO BEDTIME [facility] Last Admin: 10/27/18 19:42 Dose: 10 mg Tramadol HCl (Ultram) 50 mg PO Q6H PRN PRN Reason: Pain (severe 7-10) Last Admin: 10/28/18 08:04 Dose: 50 mg Discontinued Medications Chlorhexidine Gluconate (Peridex 0.12% Rinse) 15 ml MUCMEM BID@ [facility] Last Admin: 05/12/18 08:41 Dose: 15 ml Diphenoxylate HCl/Atropine (Lomotil 0.025-2.5 Mg) 1 tab PO QID PRN PRN Reason: Diarrhea Last Admin: 02/09/18 09:50 Dose: 1 tab Furosemide (Lasix) 40 mg IM NOW ONE Stop: 12/10/17 11:52 Last Admin: 12/10/17 13:10 Dose: 40 mg Gentian Annita (Gentian Annita) 1 ml TOP DAILY PRN PRN Reason: Rash Stop: 07/28/18 20:00 Last Admin: 07/24/18 19:49 Dose: 1 applic Lactobacillus Rhamnosus (Culturelle) 2 cap PO BID [facility] Stop: 03/02/18 18:00 Last Admin: 03/02/18 17:10 Dose: 2 cap Metronidazole (Flagyl) 500 mg PO Q8H [facility] Stop: 02/26/18 14:01 Last Admin: 02/26/18 14:14 Dose: 500 mg Metronidazole (Flagyl) 500 mg PO TID [facility] Stop: 05/22/18 18:01 Last Admin: 05/22/18 17:55 Dose: Not Given Metronidazole (Flagyl) 500 mg PO Q8H [facility] Stop: 10/03/18 06:01 Last Admin: 10/03/18 06:02 Dose: 500 mg Cephalexin (Keflex) (500 Mg Capsules) 500 mg PO BID [facility] Last Admin: 03/11/18 07:56 Dose: 500 mg Fluconazole 150mg (Tablet) 1 each PO Q3D [facility] Stop: 12/06/17 20:01 Last Admin: 12/06/17 19:13 Dose: 1 each Nystatin (Mycostatin) 5 ml PO QID [facility] Stop: 05/19/18 16:01 Last Admin: 05/19/18 16:00 Dose: 5 ml Omeprazole (Omeprazole) 20 mg PO DAILY [facility] Last Admin: 03/11/18 07:55 Dose: 20 mg Potassium Chloride (Klor-Con M20) 20 meq PO ONETIME ONE Stop: 12/10/17 11:53 Last Admin: 12/10/17 13:10 Dose: 20 meq Potassium Chloride (Klor-Con M20) 20 meq PO DAILY [facility] - Exam Quality Assessment: Supplemental Oxygen, DVT Prophylaxis. No: Central Line/PICC , Urine Catheter, Skin Breakdown, Restraints General: Alert, Oriented, Cooperative, No Acute Distress HEENT: Pupils Equal, Pupils Reactive, EOMI, Mucous Membr. Moist/[place] Neck: Supple, Trachea Midline, No JVD, No Thyromegaly, +2 Carotid Pulse wo Bruit. No: Lymphadenopathy Lungs: Clear to Auscultation, Normal Respiratory Effort. No: Rub Cardiovascular: Regular Rate, Regular Rhythm, No Murmurs. No: Gallops, Rubs GI/Abdominal Exam: Normal Bowel Sounds, Soft, Non-Tender, No Organomegaly, No Distention, No Abnormal Bruit, No Mass, Other (Obese). No: Guarding (Female) Exam: Deferred Back Exam: Normal Inspection, Full Range of Motion. No: CVA Tenderness (L), CVA Tenderness (R), Muscle Spasm Extremities: Normal Range of Motion, Non-Tender, Normal Capillary Refill, Pedal Edema (Stable lymphedema of the lower extremities). No: Lurdes's Sign Peripheral Pulses: 2+: Radial (L), Radial (R), Dorsalis Pedis (L), Dorsalis Pedis (R) Skin: Warm, Dry, Intact. No: Ecchymosis Neurological: No New Focal Deficit, Other (No clinical orthostasis) Psy/Mental Status: Alert, Normal Affect, Normal Mood. No: Agitated, Hallucinations, Withdrawal Symptoms - Problem List & Annotations (1) Caries SNOMED Code(s): 38299476 Code(s): K02.9 - DENTAL CARIES, UNSPECIFIED Status: Acute Priority: Medium Current Visit: Yes Annotation/Comment:: Complete teeth extraction on 05/05/18 with no dental pain and the patient now currently having her complete dentures uppers and lowers. (2) Steinert myotonic dystrophy syndrome SNOMED Code(s): 21407395 Code(s): G71.11 - MYOTONIC MUSCULAR DYSTROPHY Status: Chronic Priority: Medium Current Visit: Yes Annotation/Comment:: Stable by history and today' s exam. Physical therapy in effect. Repeat blood work in 2 months. (3) CHF, Congestive heart failure SNOMED Code(s): 88060236 Code(s): I50.9 - HEART FAILURE, UNSPECIFIED Status: Chronic Priority: Medium Current Visit: Yes Annotation/Comment:: Stable by clinical exam and history. Stable dependent edema since 12/10/17. Note weight down 1.4 kg during the last month. Note previous discontinuation of high protein Glucerna supplements as snacks. Note, however, dietary noncompliance is still an issue. Dietary consultation in effect. Continue to observe closely. No recent anginal complaints or current clinical evidence of CHF. Note previous history of PVCs, complete right bundle branch block/bifascicular bundle-branch block, first- degree AV block, severe dyslipidemia hypokalemia, hypophosphatemia, and hyponatremia. Continue to observe for now with no further change in medical therapy (4) COPD (chronic obstructive pulmonary disease) SNOMED Code(s): 15103631 Code(s): J44.9 - CHRONIC OBSTRUCTIVE PULMONARY DISEASE, UNSPECIFIED Status : Chronic Priority: Medium Current Visit: Yes Qualifiers: COPD type: unspecified COPD Qualified Code(s): J44.9 - Chronic obstructive pulmonary disease, unspecified Annotation/Comment:: O2 dependent COPD stable by history with no bronchitic symptoms at this time. Continue current medical therapy. Patient does have a previous history of distant postoperative respiratory distress, although no complications after recent dental surgery. (5) Hyperglycemia SNOMED Code(s): 74107431 Code(s): R73.9 - HYPERGLYCEMIA, UNSPECIFIED Status: Chronic Priority: Medium Current Visit: Yes Onset Date: 06/29/15 Annotation/Comment:: Glycosylated hemoglobin normal on 04/29/18. Note persistent dietary noncompliance , although weight loss in the last monthas above. Dietary consultation is in effect as above. Blood work to be repeated in 2 months. Glycosylated hemoglobin was also normal on 10/28/17. (6) Hyperlipidemia SNOMED Code(s): 34748029 Code(s): E78.5 - HYPERLIPIDEMIA, UNSPECIFIED Status: Chronic Priority: Medium Current Visit: Yes Annotation/Comment:: Previous history of severe dyslipidemia with aggressive medical therapy at this time. Dietary compliance once again strongly encouraged. Repeat lipid panel on 04/29/18 was relatively stable. (7) Hypothyroidism SNOMED Code(s): 27949100 Code(s): E03.9 - HYPOTHYROIDISM, UNSPECIFIED Status: Chronic Priority: Medium Current Visit: Yes Annotation/Comment:: TSH normal on 04/29/18. No other thyroid type symptoms. (8) Mixed anxiety and depressive disorder SNOMED Code(s): 899945440 Code(s): F41.8 - OTHER SPECIFIED ANXIETY DISORDERS Status: Chronic Priority: Medium Current Visit: Yes Annotation/Comment:: Stable by history. Patient is still relatively active with physical therapy, social activities, etc.. Continue to observe closely by nursing staff with no significant depression at this time with patient often alone in her room. (9) Osteoarthritis SNOMED Code(s): 883890365 Code(s): M19.90 - UNSPECIFIED OSTEOARTHRITIS, UNSPECIFIED SITE Status: Chronic Priority: Medium Current Visit: Yes Annotation/Comment:: Mild occasional generalized arthralgias, however nonproblematic at this time with the patient rarely using Ultram. This medication will be discontinued at this time with more aggressive Tylenol use, if needed. Nursing staff is in agreement with this plan. PT in effect as above. Note status post bilateral ankle ORIF secondary to fractures. (10) UTI (urinary tract infection) SNOMED Code(s): 67838788 Code(s): N39.0 - URINARY TRACT INFECTION, SITE NOT SPECIFIED Status: Chronic Priority: Medium Current Visit: Yes Qualifiers: Hematuria presence: without hematuria Annotation/Comment:: No current UTI symptoms despite recent discontinuation of Keflex therapy for previous recurrent UTIs. Note subsequent recurrent C. difficile infection, which has since resolved by clinical exam. Continue to observe for now with no reinitiation of antibiotic therapy. (11) C. difficile colitis SNOMED Code(s): 849936098 Code(s): A04.72 - ENTEROCOLITIS D/T CLOSTRIDIUM DIFFICILE, NOT SPCF RECUR Status: Chronic Priority: Medium Current Visit: Yes Onset Date: Annotation/Comment:: Central laboratories apparently refusing repeat stool C. difficile analysis since the patient no longer has diarrhea and that this evaluation may remain positive for several months. This issue will be brought up in medical staff for further review and discussion of required follow-up. In the meantime strict disinfection of patient's room, clothing, etc. Suspect that the patient may be a carrier. Continue to observe closely, however. (12) Gastroesophageal reflux disease SNOMED Code(s): 752009584 Code(s): K21.9 - GASTRO-ESOPHAGEAL REFLUX DISEASE WITHOUT ESOPHAGITIS Status: Acute Priority: Medium Current Visit: Yes Annotation/Comment:: Stable by history with no abdominal complaints and attempt to taper patient off of Prilosec. (13) Hypoalbuminemia SNOMED Code(s): 931299280 Code(s): E88.09 - OTH DISORDERS OF PLASMA-PROTEIN METABOLISM, NEC Status: Chronic Priority: Medium Current Visit: Yes Annotation/Comment:: Glucerna high-protein has been discontinued per recommendations from dietitian secondary to persistent weight gain. Continue high-protein diet as above. Observe for now. - Problem List Review Problem List Initiated/Reviewed/Updated: Yes - My Orders Last 24 Hours: My Active Orders 10/28/18 11:20 Communication Order [RC] ROUTINE - Assessment Assessment:: As above - Plan Plan:: As above. The patient is recertified for swing bed care for an additional 2 months. Blood work to be repeated in 2 months. Note the patient has already been scheduled for a repeat right-sided mammogram and possible additional right sided breast ultrasound on 11/05/18 in this facility as per previous simple provider note. Extensive precautions were given to the patient, who is in agreement with the treatment plan.
[2018-10-28] MEDS: LEVOTHYROXINE SODIUM 137 MCG PO SCH (19:35)
[2018-10-28] MEDS: buPROPion 100 MG Tab PO SCH (19:36)
[2018-10-28] MEDS: Simvastatin 10 MG Tab PO SCH (19:36)
[2018-10-29] MEDS: Metoclopramide 10 MG Tab PO SCH ×2 (08:12→17:29)
[2018-10-29] MEDS: Albuterol/Ipratropium 3.0-0.5 MG/3 ML Neb Soln NEB SCH ×2 (08:13→19:34)
[2018-10-29] MEDS: Ibuprofen 600 MG Tab PO SCH ×2 (08:13→17:29)
[2018-10-29] MEDS: Niacin 500 MG Tab PO SCH ×2 (08:13→17:30)
[2018-10-29] MEDS: Furosemide 20 MG Tab PO SCH (08:13)
[2018-10-29] MEDS: Citalopram 20 MG Tab PO SCH (08:13)
[2018-10-29] MEDS: Fludrocortisone 0.1 MG Tab PO SCH ×2 (08:13→19:34)
[2018-10-29] MEDS: Cyanocobalamin (Vitamin B12) 1,000 MCG Tab PO SCH (08:14)
[2018-10-29] MEDS: Cholecalciferol (Vitamin D3) 25 MCG Tab PO SCH (08:14)
[2018-10-29] MEDS: Potassium Chloride 10% 20 MEQ/15 ML Soln 15 ML UD Cup PO SCH ×3 (08:15→19:35)
[2018-10-29] MEDS: LEVOTHYROXINE SODIUM 137 MCG PO SCH (19:35)
[2018-10-29] MEDS: buPROPion 100 MG Tab PO SCH (19:36)
[2018-10-29] MEDS: Simvastatin 10 MG Tab PO SCH (19:37)
[2018-10-30] MEDS: Albuterol/Ipratropium 3.0-0.5 MG/3 ML Neb Soln NEB SCH ×2 (07:53→19:25)
[2018-10-30] MEDS: Fludrocortisone 0.1 MG Tab PO SCH ×2 (07:53→19:27)
[2018-10-30] MEDS: Citalopram 20 MG Tab PO SCH (07:53)
[2018-10-30] MEDS: Metoclopramide 10 MG Tab PO SCH ×2 (07:53→17:21)
[2018-10-30] MEDS: Niacin 500 MG Tab PO SCH ×2 (07:54→17:21)
[2018-10-30] MEDS: Cyanocobalamin (Vitamin B12) 1,000 MCG Tab PO SCH (07:54)
[2018-10-30] MEDS: Ibuprofen 600 MG Tab PO SCH ×2 (07:54→17:21)
[2018-10-30] MEDS: Furosemide 20 MG Tab PO SCH (07:54)
[2018-10-30] MEDS: Potassium Chloride 10% 20 MEQ/15 ML Soln 15 ML UD Cup PO SCH ×3 (07:55→19:28)
[2018-10-30] MEDS: Cholecalciferol (Vitamin D3) 25 MCG Tab PO SCH (07:55)
[2018-10-30] MEDS: LEVOTHYROXINE SODIUM 137 MCG PO SCH (19:28)
[2018-10-30] MEDS: buPROPion 100 MG Tab PO SCH (19:30)
[2018-10-30] MEDS: Simvastatin 10 MG Tab PO SCH (19:30)
[2018-10-30] MEDS: guaiFENesin/Dextromethorphan 100-10 MG/5 ML Soln 10 ML Cup PO PRN (20:40)
[2018-10-31] MEDS: Metoclopramide 10 MG Tab PO SCH ×2 (07:49→17:21)
[2018-10-31] MEDS: Citalopram 20 MG Tab PO SCH (07:49)
[2018-10-31] MEDS: Albuterol/Ipratropium 3.0-0.5 MG/3 ML Neb Soln NEB SCH ×2 (07:50→19:12)
[2018-10-31] MEDS: Fludrocortisone 0.1 MG Tab PO SCH ×2 (07:50→19:12)
[2018-10-31] MEDS: Ibuprofen 600 MG Tab PO SCH ×2 (07:51→17:21)
[2018-10-31] MEDS: Furosemide 20 MG Tab PO SCH (07:51)
[2018-10-31] MEDS: Niacin 500 MG Tab PO SCH ×2 (07:51→17:22)
[2018-10-31] MEDS: Cyanocobalamin (Vitamin B12) 1,000 MCG Tab PO SCH (07:52)
[2018-10-31] MEDS: Potassium Chloride 10% 20 MEQ/15 ML Soln 15 ML UD Cup PO SCH ×3 (07:52→19:14)
[2018-10-31] MEDS: Cholecalciferol (Vitamin D3) 25 MCG Tab PO SCH (07:52)
[2018-10-31] MEDS: buPROPion 100 MG Tab PO SCH (19:13)
[2018-10-31] MEDS: LEVOTHYROXINE SODIUM 137 MCG PO SCH (19:13)
[2018-10-31] MEDS: Simvastatin 10 MG Tab PO SCH (19:13)
[2018-11-01] MEDS: Metoclopramide 10 MG Tab PO SCH ×2 (07:59→17:13)
[2018-11-01] MEDS: Fludrocortisone 0.1 MG Tab PO SCH ×2 (07:59→19:31)
[2018-11-01] MEDS: Citalopram 20 MG Tab PO SCH (07:59)
[2018-11-01] MEDS: Ibuprofen 600 MG Tab PO SCH ×2 (08:00→17:12)
[2018-11-01] MEDS: Niacin 500 MG Tab PO SCH ×2 (08:00→17:12)
[2018-11-01] MEDS: Furosemide 20 MG Tab PO SCH (08:00)
[2018-11-01] MEDS: Potassium Chloride 10% 20 MEQ/15 ML Soln 15 ML UD Cup PO SCH ×3 (08:01→19:32)
[2018-11-01] MEDS: Albuterol/Ipratropium 3.0-0.5 MG/3 ML Neb Soln NEB SCH ×2 (08:02→19:31)
[2018-11-01] MEDS: Cyanocobalamin (Vitamin B12) 1,000 MCG Tab PO SCH (08:02)
[2018-11-01] MEDS: Cholecalciferol (Vitamin D3) 25 MCG Tab PO SCH (08:02)
[2018-11-01] MEDS: Acetaminophen 325 MG Tab PO PRN (13:00)
[2018-11-01] MEDS: LEVOTHYROXINE SODIUM 137 MCG PO SCH (19:31)
[2018-11-01] MEDS: buPROPion 100 MG Tab PO SCH (19:32)
[2018-11-01] MEDS: Simvastatin 10 MG Tab PO SCH (19:33)
[2018-11-02] MEDS: Fludrocortisone 0.1 MG Tab PO SCH ×2 (08:01→19:50)
[2018-11-02] MEDS: Citalopram 20 MG Tab PO SCH (08:01)
[2018-11-02] MEDS: Ibuprofen 600 MG Tab PO SCH ×2 (08:01→18:33)
[2018-11-02] MEDS: Furosemide 20 MG Tab PO SCH (08:01)
[2018-11-02] MEDS: Niacin 500 MG Tab PO SCH ×2 (08:02→18:33)
[2018-11-02] MEDS: Albuterol/Ipratropium 3.0-0.5 MG/3 ML Neb Soln NEB SCH ×2 (08:02→19:50)
[2018-11-02] MEDS: Metoclopramide 10 MG Tab PO SCH ×2 (08:02→18:33)
[2018-11-02] MEDS: Cyanocobalamin (Vitamin B12) 1,000 MCG Tab PO SCH (08:03)
[2018-11-02] MEDS: Cholecalciferol (Vitamin D3) 25 MCG Tab PO SCH (08:03)
[2018-11-02] MEDS: Potassium Chloride 10% 20 MEQ/15 ML Soln 15 ML UD Cup PO SCH ×3 (08:03→19:51)
[2018-11-02] MEDS: LEVOTHYROXINE SODIUM 137 MCG PO SCH (19:50)
[2018-11-02] MEDS: Simvastatin 10 MG Tab PO SCH (19:50)
[2018-11-02] MEDS: buPROPion 100 MG Tab PO SCH (19:50)
[2018-11-03] MEDS: Acetaminophen 325 MG Tab PO PRN (04:12)
[2018-11-03] MEDS: Furosemide 20 MG Tab PO SCH (08:12)
[2018-11-03] MEDS: Ibuprofen 600 MG Tab PO SCH ×2 (08:12→17:39)
[2018-11-03] MEDS: Niacin 500 MG Tab PO SCH ×2 (08:13→17:39)
[2018-11-03] MEDS: Fludrocortisone 0.1 MG Tab PO SCH ×2 (08:13→19:50)
[2018-11-03] MEDS: Metoclopramide 10 MG Tab PO SCH ×2 (08:13→17:38)
[2018-11-03] MEDS: Albuterol/Ipratropium 3.0-0.5 MG/3 ML Neb Soln NEB SCH ×2 (08:13→19:50)
[2018-11-03] MEDS: Citalopram 20 MG Tab PO SCH (08:13)
[2018-11-03] MEDS: Potassium Chloride 10% 20 MEQ/15 ML Soln 15 ML UD Cup PO SCH ×3 (08:14→19:50)
[2018-11-03] MEDS: Cholecalciferol (Vitamin D3) 25 MCG Tab PO SCH (08:15)
[2018-11-03] MEDS: Cyanocobalamin (Vitamin B12) 1,000 MCG Tab PO SCH (08:15)
[2018-11-03] MEDS: LEVOTHYROXINE SODIUM 137 MCG PO SCH (19:50)
[2018-11-03] MEDS: Simvastatin 10 MG Tab PO SCH (19:51)
[2018-11-03] MEDS: buPROPion 100 MG Tab PO SCH (19:51)
[2018-11-04] MEDS: Metoclopramide 10 MG Tab PO SCH ×2 (08:15→17:55)
[2018-11-04] MEDS: Citalopram 20 MG Tab PO SCH (08:15)
[2018-11-04] MEDS: Albuterol/Ipratropium 3.0-0.5 MG/3 ML Neb Soln NEB SCH ×2 (08:16→19:08)
[2018-11-04] MEDS: Fludrocortisone 0.1 MG Tab PO SCH ×2 (08:16→19:08)
[2018-11-04] MEDS: Furosemide 20 MG Tab PO SCH (08:16)
[2018-11-04] MEDS: Ibuprofen 600 MG Tab PO SCH ×2 (08:16→17:55)
[2018-11-04] MEDS: Niacin 500 MG Tab PO SCH ×2 (08:17→17:56)
[2018-11-04] MEDS: Potassium Chloride 10% 20 MEQ/15 ML Soln 15 ML UD Cup PO SCH ×3 (08:17→19:09)
[2018-11-04] MEDS: Cyanocobalamin (Vitamin B12) 1,000 MCG Tab PO SCH (08:18)
[2018-11-04] MEDS: Cholecalciferol (Vitamin D3) 25 MCG Tab PO SCH (08:19)
[2018-11-04] MEDS: LEVOTHYROXINE SODIUM 137 MCG PO SCH (19:08)
[2018-11-04] MEDS: buPROPion 100 MG Tab PO SCH (19:08)
[2018-11-04] MEDS: Simvastatin 10 MG Tab PO SCH (19:08)
[2018-11-04] MEDS: Acetaminophen 325 MG Tab PO PRN (19:10)
[2018-11-05] MEDS: Furosemide 20 MG Tab PO SCH (08:08)
[2018-11-05] MEDS: Metoclopramide 10 MG Tab PO SCH ×2 (08:08→17:14)
[2018-11-05] MEDS: Citalopram 20 MG Tab PO SCH (08:08)
[2018-11-05] MEDS: Fludrocortisone 0.1 MG Tab PO SCH ×2 (08:08→19:13)
[2018-11-05] MEDS: Potassium Chloride 10% 20 MEQ/15 ML Soln 15 ML UD Cup PO SCH ×3 (08:08→19:16)
[2018-11-05] MEDS: Albuterol/Ipratropium 3.0-0.5 MG/3 ML Neb Soln NEB SCH ×2 (08:08→19:16)
[2018-11-05] MEDS: Ibuprofen 600 MG Tab PO SCH ×2 (08:09→17:14)
[2018-11-05] MEDS: Niacin 500 MG Tab PO SCH ×2 (08:09→17:14)
[2018-11-05] MEDS: Cholecalciferol (Vitamin D3) 25 MCG Tab PO SCH (08:10)
[2018-11-05] MEDS: Cyanocobalamin (Vitamin B12) 1,000 MCG Tab PO SCH (08:10)
[2018-11-05] MEDS: buPROPion 100 MG Tab PO SCH (19:13)
[2018-11-05] MEDS: Simvastatin 10 MG Tab PO SCH (19:14)
[2018-11-05] MEDS: LEVOTHYROXINE SODIUM 137 MCG PO SCH (19:14)
[2018-11-06] MEDS: Furosemide 20 MG Tab PO SCH (08:03)
[2018-11-06] MEDS: Metoclopramide 10 MG Tab PO SCH ×2 (08:03→17:11)
[2018-11-06] MEDS: Citalopram 20 MG Tab PO SCH (08:03)
[2018-11-06] MEDS: Fludrocortisone 0.1 MG Tab PO SCH ×2 (08:03→19:01)
[2018-11-06] MEDS: Albuterol/Ipratropium 3.0-0.5 MG/3 ML Neb Soln NEB SCH ×2 (08:03→19:01)
[2018-11-06] MEDS: Niacin 500 MG Tab PO SCH ×2 (08:04→17:11)
[2018-11-06] MEDS: Potassium Chloride 10% 20 MEQ/15 ML Soln 15 ML UD Cup PO SCH ×3 (08:04→19:01)
[2018-11-06] MEDS: Ibuprofen 600 MG Tab PO SCH ×2 (08:04→17:11)
[2018-11-06] MEDS: Cholecalciferol (Vitamin D3) 25 MCG Tab PO SCH (08:05)
[2018-11-06] MEDS: Cyanocobalamin (Vitamin B12) 1,000 MCG Tab PO SCH (08:05)
[2018-11-06] MEDS: buPROPion 100 MG Tab PO SCH (19:01)
[2018-11-06] MEDS: LEVOTHYROXINE SODIUM 137 MCG PO SCH (19:01)
[2018-11-06] MEDS: Simvastatin 10 MG Tab PO SCH (19:01)
[2018-11-07] MEDS: Ibuprofen 600 MG Tab PO SCH ×2 (07:58→17:06)
[2018-11-07] MEDS: Fludrocortisone 0.1 MG Tab PO SCH ×2 (07:58→19:18)
[2018-11-07] MEDS: Furosemide 20 MG Tab PO SCH (07:58)
[2018-11-07] MEDS: Citalopram 20 MG Tab PO SCH (07:58)
[2018-11-07] MEDS: Albuterol/Ipratropium 3.0-0.5 MG/3 ML Neb Soln NEB SCH ×2 (07:58→19:19)
[2018-11-07] MEDS: Niacin 500 MG Tab PO SCH ×2 (07:58→17:07)
[2018-11-07] MEDS: Metoclopramide 10 MG Tab PO SCH ×2 (07:58→17:06)
[2018-11-07] MEDS: Cyanocobalamin (Vitamin B12) 1,000 MCG Tab PO SCH (07:59)
[2018-11-07] MEDS: Cholecalciferol (Vitamin D3) 25 MCG Tab PO SCH (07:59)
[2018-11-07] MEDS: Potassium Chloride 10% 20 MEQ/15 ML Soln 15 ML UD Cup PO SCH ×3 (07:59→19:17)
[2018-11-07] MEDS: Acetaminophen 325 MG Tab PO PRN (08:55)
[2018-11-07] MEDS: buPROPion 100 MG Tab PO SCH (19:18)
[2018-11-07] MEDS: LEVOTHYROXINE SODIUM 137 MCG PO SCH (19:18)
[2018-11-07] MEDS: Simvastatin 10 MG Tab PO SCH (19:18)
[2018-11-08] MEDS: Potassium Chloride 10% 20 MEQ/15 ML Soln 15 ML UD Cup PO SCH ×3 (07:53→19:31)
[2018-11-08] MEDS: Metoclopramide 10 MG Tab PO SCH ×2 (07:53→17:07)
[2018-11-08] MEDS: Citalopram 20 MG Tab PO SCH (07:54)
[2018-11-08] MEDS: Fludrocortisone 0.1 MG Tab PO SCH ×2 (07:54→19:31)
[2018-11-08] MEDS: Albuterol/Ipratropium 3.0-0.5 MG/3 ML Neb Soln NEB SCH ×2 (07:54→19:31)
[2018-11-08] MEDS: Niacin 500 MG Tab PO SCH ×2 (07:55→17:07)
[2018-11-08] MEDS: Furosemide 20 MG Tab PO SCH (07:55)
[2018-11-08] MEDS: Cyanocobalamin (Vitamin B12) 1,000 MCG Tab PO SCH (07:55)
[2018-11-08] MEDS: Ibuprofen 600 MG Tab PO SCH ×2 (07:55→17:07)
[2018-11-08] MEDS: Cholecalciferol (Vitamin D3) 25 MCG Tab PO SCH (07:56)
[2018-11-08] MEDS: LEVOTHYROXINE SODIUM 137 MCG PO SCH (19:31)
[2018-11-08] MEDS: buPROPion 100 MG Tab PO SCH (19:32)
[2018-11-08] MEDS: Simvastatin 10 MG Tab PO SCH (19:32)
[2018-11-09] MEDS: Citalopram 20 MG Tab PO SCH (07:43)
[2018-11-09] MEDS: Metoclopramide 10 MG Tab PO SCH ×2 (07:43→17:44)
[2018-11-09] MEDS: Albuterol/Ipratropium 3.0-0.5 MG/3 ML Neb Soln NEB SCH ×2 (07:44→19:57)
[2018-11-09] MEDS: Fludrocortisone 0.1 MG Tab PO SCH ×2 (07:44→19:56)
[2018-11-09] MEDS: Ibuprofen 600 MG Tab PO SCH ×2 (07:44→17:44)
[2018-11-09] MEDS: Furosemide 20 MG Tab PO SCH (07:44)
[2018-11-09] MEDS: Niacin 500 MG Tab PO SCH ×2 (07:45→17:45)
[2018-11-09] MEDS: Potassium Chloride 10% 20 MEQ/15 ML Soln 15 ML UD Cup PO SCH ×3 (07:45→19:57)
[2018-11-09] MEDS: Cyanocobalamin (Vitamin B12) 1,000 MCG Tab PO SCH (07:46)
[2018-11-09] MEDS: Cholecalciferol (Vitamin D3) 25 MCG Tab PO SCH (07:46)
[2018-11-09] MEDS: LEVOTHYROXINE SODIUM 137 MCG PO SCH (19:56)
[2018-11-09] MEDS: buPROPion 100 MG Tab PO SCH (19:56)
[2018-11-09] MEDS: Acetaminophen 325 MG Tab PO PRN (19:56)
[2018-11-09] MEDS: Simvastatin 10 MG Tab PO SCH (19:56)
[2018-11-10] MEDS: Citalopram 20 MG Tab PO SCH (07:48)
[2018-11-10] MEDS: Albuterol/Ipratropium 3.0-0.5 MG/3 ML Neb Soln NEB SCH ×2 (07:48→19:49)
[2018-11-10] MEDS: Fludrocortisone 0.1 MG Tab PO SCH ×2 (07:48→19:49)
[2018-11-10] MEDS: Metoclopramide 10 MG Tab PO SCH ×2 (07:48→17:34)
[2018-11-10] MEDS: Furosemide 20 MG Tab PO SCH (07:49)
[2018-11-10] MEDS: Cyanocobalamin (Vitamin B12) 1,000 MCG Tab PO SCH (07:49)
[2018-11-10] MEDS: Niacin 500 MG Tab PO SCH ×2 (07:49→17:34)
[2018-11-10] MEDS: Ibuprofen 600 MG Tab PO SCH ×2 (07:49→17:34)
[2018-11-10] MEDS: Cholecalciferol (Vitamin D3) 25 MCG Tab PO SCH (07:51)
[2018-11-10] MEDS: Potassium Chloride 10% 20 MEQ/15 ML Soln 15 ML UD Cup PO SCH ×3 (07:52→19:49)
[2018-11-10] MEDS: LEVOTHYROXINE SODIUM 137 MCG PO SCH (19:49)
[2018-11-10] MEDS: Simvastatin 10 MG Tab PO SCH (19:50)
[2018-11-10] MEDS: buPROPion 100 MG Tab PO SCH (19:50)
[2018-11-11] MEDS: Metoclopramide 10 MG Tab PO SCH ×2 (08:05→17:18)
[2018-11-11] MEDS: Albuterol/Ipratropium 3.0-0.5 MG/3 ML Neb Soln NEB SCH ×2 (08:05→19:27)
[2018-11-11] MEDS: Fludrocortisone 0.1 MG Tab PO SCH ×2 (08:05→19:28)
[2018-11-11] MEDS: Citalopram 20 MG Tab PO SCH (08:05)
[2018-11-11] MEDS: Furosemide 20 MG Tab PO SCH (08:06)
[2018-11-11] MEDS: Potassium Chloride 10% 20 MEQ/15 ML Soln 15 ML UD Cup PO SCH ×3 (08:06→19:32)
[2018-11-11] MEDS: Niacin 500 MG Tab PO SCH ×2 (08:06→17:18)
[2018-11-11] MEDS: Ibuprofen 600 MG Tab PO SCH ×2 (08:06→17:18)
[2018-11-11] MEDS: Cholecalciferol (Vitamin D3) 25 MCG Tab PO SCH (08:07)
[2018-11-11] MEDS: Cyanocobalamin (Vitamin B12) 1,000 MCG Tab PO SCH (08:07)
[2018-11-11] MEDS: LEVOTHYROXINE SODIUM 137 MCG PO SCH (19:28)
[2018-11-11] MEDS: buPROPion 100 MG Tab PO SCH (19:28)
[2018-11-11] MEDS: Simvastatin 10 MG Tab PO SCH (19:29)
[2018-11-12] MEDS: Fludrocortisone 0.1 MG Tab PO SCH ×2 (08:08→19:17)
[2018-11-12] MEDS: Metoclopramide 10 MG Tab PO SCH ×2 (08:08→17:54)
[2018-11-12] MEDS: Citalopram 20 MG Tab PO SCH (08:08)
[2018-11-12] MEDS: Albuterol/Ipratropium 3.0-0.5 MG/3 ML Neb Soln NEB SCH ×2 (08:08→19:17)
[2018-11-12] MEDS: Furosemide 20 MG Tab PO SCH (08:09)
[2018-11-12] MEDS: Niacin 500 MG Tab PO SCH ×2 (08:09→17:55)
[2018-11-12] MEDS: Ibuprofen 600 MG Tab PO SCH ×2 (08:09→17:54)
[2018-11-12] MEDS: Potassium Chloride 10% 20 MEQ/15 ML Soln 15 ML UD Cup PO SCH ×3 (08:10→19:18)
[2018-11-12] MEDS: Cyanocobalamin (Vitamin B12) 1,000 MCG Tab PO SCH (08:11)
[2018-11-12] MEDS: Cholecalciferol (Vitamin D3) 25 MCG Tab PO SCH (08:12)
[2018-11-12] MEDS: LEVOTHYROXINE SODIUM 137 MCG PO SCH (19:17)
[2018-11-12] MEDS: buPROPion 100 MG Tab PO SCH (19:18)
[2018-11-12] MEDS: Simvastatin 10 MG Tab PO SCH (19:18)
[2018-11-13] MEDS: Metoclopramide 10 MG Tab PO SCH ×2 (08:01→17:16)
[2018-11-13] MEDS: Potassium Chloride 10% 20 MEQ/15 ML Soln 15 ML UD Cup PO SCH ×3 (08:01→19:25)
[2018-11-13] MEDS: Citalopram 20 MG Tab PO SCH (08:01)
[2018-11-13] MEDS: Albuterol/Ipratropium 3.0-0.5 MG/3 ML Neb Soln NEB SCH ×2 (08:02→19:24)
[2018-11-13] MEDS: Furosemide 20 MG Tab PO SCH (08:02)
[2018-11-13] MEDS: Fludrocortisone 0.1 MG Tab PO SCH ×2 (08:02→19:25)
[2018-11-13] MEDS: Ibuprofen 600 MG Tab PO SCH ×2 (08:02→17:16)
[2018-11-13] MEDS: Cholecalciferol (Vitamin D3) 25 MCG Tab PO SCH (08:03)
[2018-11-13] MEDS: Cyanocobalamin (Vitamin B12) 1,000 MCG Tab PO SCH (08:03)
[2018-11-13] MEDS: Niacin 500 MG Tab PO SCH ×2 (08:03→17:16)
[2018-11-13] MEDS: Acetaminophen 325 MG Tab PO PRN (09:59)
[2018-11-13] MEDS: buPROPion 100 MG Tab PO SCH (19:25)
[2018-11-13] MEDS: LEVOTHYROXINE SODIUM 137 MCG PO SCH (19:25)
[2018-11-13] MEDS: Simvastatin 10 MG Tab PO SCH (19:25)
[2018-11-14] MEDS: Citalopram 20 MG Tab PO SCH (07:36)
[2018-11-14] MEDS: Ibuprofen 600 MG Tab PO SCH ×2 (07:36→17:47)
[2018-11-14] MEDS: Niacin 500 MG Tab PO SCH ×2 (07:36→17:47)
[2018-11-14] MEDS: Furosemide 20 MG Tab PO SCH (07:36)
[2018-11-14] MEDS: Fludrocortisone 0.1 MG Tab PO SCH ×2 (07:36→19:15)
[2018-11-14] MEDS: Metoclopramide 10 MG Tab PO SCH ×2 (07:36→17:47)
[2018-11-14] MEDS: Cholecalciferol (Vitamin D3) 25 MCG Tab PO SCH (07:37)
[2018-11-14] MEDS: Cyanocobalamin (Vitamin B12) 1,000 MCG Tab PO SCH (07:37)
[2018-11-14] MEDS: Potassium Chloride 10% 20 MEQ/15 ML Soln 15 ML UD Cup PO SCH ×3 (07:38→19:15)
[2018-11-14] MEDS: Albuterol/Ipratropium 3.0-0.5 MG/3 ML Neb Soln NEB SCH ×2 (09:00→19:15)
[2018-11-14] MEDS: LEVOTHYROXINE SODIUM 137 MCG PO SCH (19:14)
[2018-11-14] MEDS: Simvastatin 10 MG Tab PO SCH (19:14)
[2018-11-14] MEDS: buPROPion 100 MG Tab PO SCH (19:14)
[2018-11-15] MEDS: Albuterol/Ipratropium 3.0-0.5 MG/3 ML Neb Soln NEB SCH ×2 (07:30→19:24)
[2018-11-15] MEDS: Metoclopramide 10 MG Tab PO SCH ×2 (07:30→17:26)
[2018-11-15] MEDS: Citalopram 20 MG Tab PO SCH (07:30)
[2018-11-15] MEDS: Fludrocortisone 0.1 MG Tab PO SCH ×2 (07:31→19:25)
[2018-11-15] MEDS: Furosemide 20 MG Tab PO SCH (07:31)
[2018-11-15] MEDS: Ibuprofen 600 MG Tab PO SCH ×2 (07:31→17:26)
[2018-11-15] MEDS: Cyanocobalamin (Vitamin B12) 1,000 MCG Tab PO SCH (07:32)
[2018-11-15] MEDS: Cholecalciferol (Vitamin D3) 25 MCG Tab PO SCH (07:32)
[2018-11-15] MEDS: Niacin 500 MG Tab PO SCH ×2 (07:32→17:27)
[2018-11-15] MEDS: Potassium Chloride 10% 20 MEQ/15 ML Soln 15 ML UD Cup PO SCH ×3 (07:33→19:25)
[2018-11-15] MEDS: LEVOTHYROXINE SODIUM 137 MCG PO SCH (19:25)
[2018-11-15] MEDS: Simvastatin 10 MG Tab PO SCH (19:26)
[2018-11-15] MEDS: buPROPion 100 MG Tab PO SCH (19:26)
[2018-11-16] MEDS: Metoclopramide 10 MG Tab PO SCH ×2 (07:53→17:30)
[2018-11-16] MEDS: Citalopram 20 MG Tab PO SCH (07:53)
[2018-11-16] MEDS: Albuterol/Ipratropium 3.0-0.5 MG/3 ML Neb Soln NEB SCH ×2 (07:53→19:46)
[2018-11-16] MEDS: Niacin 500 MG Tab PO SCH ×2 (07:54→17:31)
[2018-11-16] MEDS: Furosemide 20 MG Tab PO SCH (07:54)
[2018-11-16] MEDS: Ibuprofen 600 MG Tab PO SCH ×2 (07:54→17:30)
[2018-11-16] MEDS: Fludrocortisone 0.1 MG Tab PO SCH ×2 (07:54→19:47)
[2018-11-16] MEDS: Cyanocobalamin (Vitamin B12) 1,000 MCG Tab PO SCH (07:55)
[2018-11-16] MEDS: Cholecalciferol (Vitamin D3) 25 MCG Tab PO SCH (07:55)
[2018-11-16] MEDS: Potassium Chloride 10% 20 MEQ/15 ML Soln 15 ML UD Cup PO SCH ×3 (07:56→19:49)
[2018-11-16] MEDS: LEVOTHYROXINE SODIUM 137 MCG PO SCH (19:48)
[2018-11-16] MEDS: Simvastatin 10 MG Tab PO SCH (19:50)
[2018-11-16] MEDS: buPROPion 100 MG Tab PO SCH (19:50)
[2018-11-17] MEDS: Fludrocortisone 0.1 MG Tab PO SCH ×2 (07:53→19:29)
[2018-11-17] MEDS: Citalopram 20 MG Tab PO SCH (07:53)
[2018-11-17] MEDS: Furosemide 20 MG Tab PO SCH (07:53)
[2018-11-17] MEDS: Metoclopramide 10 MG Tab PO SCH ×2 (07:53→17:43)
[2018-11-17] MEDS: Ibuprofen 600 MG Tab PO SCH ×2 (07:54→17:43)
[2018-11-17] MEDS: Niacin 500 MG Tab PO SCH ×2 (07:55→17:44)
[2018-11-17] MEDS: Cyanocobalamin (Vitamin B12) 1,000 MCG Tab PO SCH (07:56)
[2018-11-17] MEDS: Potassium Chloride 10% 20 MEQ/15 ML Soln 15 ML UD Cup PO SCH ×3 (07:56→19:29)
[2018-11-17] MEDS: Cholecalciferol (Vitamin D3) 25 MCG Tab PO SCH (07:57)
[2018-11-17] MEDS: Albuterol/Ipratropium 3.0-0.5 MG/3 ML Neb Soln NEB SCH ×2 (07:59→19:28)
[2018-11-17] MEDS: LEVOTHYROXINE SODIUM 137 MCG PO SCH (19:29)
[2018-11-17] MEDS: Simvastatin 10 MG Tab PO SCH (19:30)
[2018-11-17] MEDS: buPROPion 100 MG Tab PO SCH (19:30)
[2018-11-18] MEDS: Metoclopramide 10 MG Tab PO SCH ×2 (08:03→17:17)
[2018-11-18] MEDS: Albuterol/Ipratropium 3.0-0.5 MG/3 ML Neb Soln NEB SCH ×2 (08:03→19:16)
[2018-11-18] MEDS: Citalopram 20 MG Tab PO SCH (08:03)
[2018-11-18] MEDS: Furosemide 20 MG Tab PO SCH (08:03)
[2018-11-18] MEDS: Fludrocortisone 0.1 MG Tab PO SCH ×2 (08:03→19:08)
[2018-11-18] MEDS: Niacin 500 MG Tab PO SCH ×2 (08:04→17:17)
[2018-11-18] MEDS: Ibuprofen 600 MG Tab PO SCH ×2 (08:04→17:17)
[2018-11-18] MEDS: Potassium Chloride 10% 20 MEQ/15 ML Soln 15 ML UD Cup PO SCH ×3 (08:04→19:07)
[2018-11-18] MEDS: Cyanocobalamin (Vitamin B12) 1,000 MCG Tab PO SCH (08:05)
[2018-11-18] MEDS: Cholecalciferol (Vitamin D3) 25 MCG Tab PO SCH (08:05)
[2018-11-18] MEDS: buPROPion 100 MG Tab PO SCH (19:07)
[2018-11-18] MEDS: Simvastatin 10 MG Tab PO SCH (19:08)
[2018-11-18] MEDS: LEVOTHYROXINE SODIUM 137 MCG PO SCH (19:08)
[2018-11-19] MEDS: Albuterol/Ipratropium 3.0-0.5 MG/3 ML Neb Soln NEB SCH ×2 (07:45→19:06)
[2018-11-19] MEDS: Potassium Chloride 10% 20 MEQ/15 ML Soln 15 ML UD Cup PO SCH ×3 (07:46→19:06)
[2018-11-19] MEDS: Furosemide 20 MG Tab PO SCH (07:47)
[2018-11-19] MEDS: Metoclopramide 10 MG Tab PO SCH ×2 (07:47→17:13)
[2018-11-19] MEDS: Ibuprofen 600 MG Tab PO SCH ×2 (07:47→17:13)
[2018-11-19] MEDS: Fludrocortisone 0.1 MG Tab PO SCH ×2 (07:47→19:05)
[2018-11-19] MEDS: Niacin 500 MG Tab PO SCH ×2 (07:47→17:13)
[2018-11-19] MEDS: Citalopram 20 MG Tab PO SCH (07:47)
[2018-11-19] MEDS: Cholecalciferol (Vitamin D3) 25 MCG Tab PO SCH (07:48)
[2018-11-19] MEDS: Cyanocobalamin (Vitamin B12) 1,000 MCG Tab PO SCH (07:48)
[2018-11-19] MEDS: LEVOTHYROXINE SODIUM 137 MCG PO SCH (19:05)
[2018-11-19] MEDS: Simvastatin 10 MG Tab PO SCH (19:05)
[2018-11-19] MEDS: buPROPion 100 MG Tab PO SCH (19:06)
[2018-11-20] MEDS: Fludrocortisone 0.1 MG Tab PO SCH ×2 (07:50→19:28)
[2018-11-20] MEDS: Ibuprofen 600 MG Tab PO SCH ×2 (07:50→17:15)
[2018-11-20] MEDS: Albuterol/Ipratropium 3.0-0.5 MG/3 ML Neb Soln NEB SCH ×2 (07:50→19:27)
[2018-11-20] MEDS: Citalopram 20 MG Tab PO SCH (07:50)
[2018-11-20] MEDS: Furosemide 20 MG Tab PO SCH (07:50)
[2018-11-20] MEDS: Metoclopramide 10 MG Tab PO SCH ×2 (07:50→17:15)
[2018-11-20] MEDS: Niacin 500 MG Tab PO SCH ×2 (07:51→17:16)
[2018-11-20] MEDS: Potassium Chloride 10% 20 MEQ/15 ML Soln 15 ML UD Cup PO SCH ×3 (07:52→19:29)
[2018-11-20] MEDS: Cholecalciferol (Vitamin D3) 25 MCG Tab PO SCH (07:53)
[2018-11-20] MEDS: Cyanocobalamin (Vitamin B12) 1,000 MCG Tab PO SCH (07:53)
[2018-11-20] MEDS: buPROPion 100 MG Tab PO SCH (19:28)
[2018-11-20] MEDS: LEVOTHYROXINE SODIUM 137 MCG PO SCH (19:28)
[2018-11-20] MEDS: Simvastatin 10 MG Tab PO SCH (19:29)
[2018-11-21] MEDS: Metoclopramide 10 MG Tab PO SCH ×2 (07:37→17:14)
[2018-11-21] MEDS: Citalopram 20 MG Tab PO SCH (07:37)
[2018-11-21] MEDS: Ibuprofen 600 MG Tab PO SCH ×2 (07:38→17:14)
[2018-11-21] MEDS: Furosemide 20 MG Tab PO SCH (07:38)
[2018-11-21] MEDS: Albuterol/Ipratropium 3.0-0.5 MG/3 ML Neb Soln NEB SCH ×2 (07:38→19:08)
[2018-11-21] MEDS: Fludrocortisone 0.1 MG Tab PO SCH ×2 (07:38→19:08)
[2018-11-21] MEDS: Potassium Chloride 10% 20 MEQ/15 ML Soln 15 ML UD Cup PO SCH ×3 (07:39→19:09)
[2018-11-21] MEDS: Niacin 500 MG Tab PO SCH ×2 (07:39→17:15)
[2018-11-21] MEDS: Cholecalciferol (Vitamin D3) 25 MCG Tab PO SCH (07:42)
[2018-11-21] MEDS: Cyanocobalamin (Vitamin B12) 1,000 MCG Tab PO SCH (07:42)
[2018-11-21] MEDS: buPROPion 100 MG Tab PO SCH (19:09)
[2018-11-21] MEDS: Simvastatin 10 MG Tab PO SCH (19:09)
[2018-11-21] MEDS: LEVOTHYROXINE SODIUM 137 MCG PO SCH (19:09)
[2018-11-22] MEDS: Citalopram 20 MG Tab PO SCH (07:38)
[2018-11-22] MEDS: Fludrocortisone 0.1 MG Tab PO SCH ×2 (07:38→19:02)
[2018-11-22] MEDS: Furosemide 20 MG Tab PO SCH (07:38)
[2018-11-22] MEDS: Metoclopramide 10 MG Tab PO SCH ×2 (07:38→17:13)
[2018-11-22] MEDS: Ibuprofen 600 MG Tab PO SCH ×2 (07:38→17:13)
[2018-11-22] MEDS: Albuterol/Ipratropium 3.0-0.5 MG/3 ML Neb Soln NEB SCH ×2 (07:38→19:03)
[2018-11-22] MEDS: Potassium Chloride 10% 20 MEQ/15 ML Soln 15 ML UD Cup PO SCH ×3 (07:40→19:02)
[2018-11-22] MEDS: Niacin 500 MG Tab PO SCH ×2 (07:40→17:14)
[2018-11-22] MEDS: Cholecalciferol (Vitamin D3) 25 MCG Tab PO SCH (07:41)
[2018-11-22] MEDS: Cyanocobalamin (Vitamin B12) 1,000 MCG Tab PO SCH (07:41)
[2018-11-22] MEDS: LEVOTHYROXINE SODIUM 137 MCG PO SCH (19:02)
[2018-11-22] MEDS: buPROPion 100 MG Tab PO SCH (19:02)
[2018-11-22] MEDS: Simvastatin 10 MG Tab PO SCH (19:03)
[2018-11-23] MEDS: Albuterol/Ipratropium 3.0-0.5 MG/3 ML Neb Soln NEB SCH ×2 (07:26→19:02)
[2018-11-23] MEDS: Potassium Chloride 10% 20 MEQ/15 ML Soln 15 ML UD Cup PO SCH ×3 (07:27→19:01)
[2018-11-23] MEDS: Metoclopramide 10 MG Tab PO SCH ×2 (07:28→17:13)
[2018-11-23] MEDS: Ibuprofen 600 MG Tab PO SCH ×2 (07:28→17:13)
[2018-11-23] MEDS: Fludrocortisone 0.1 MG Tab PO SCH ×2 (07:28→19:02)
[2018-11-23] MEDS: Citalopram 20 MG Tab PO SCH (07:28)
[2018-11-23] MEDS: Furosemide 20 MG Tab PO SCH (07:28)
[2018-11-23] MEDS: Niacin 500 MG Tab PO SCH ×2 (07:29→17:13)
[2018-11-23] MEDS: Cholecalciferol (Vitamin D3) 25 MCG Tab PO SCH (07:29)
[2018-11-23] MEDS: Cyanocobalamin (Vitamin B12) 1,000 MCG Tab PO SCH (07:30)
[2018-11-23] MEDS: buPROPion 100 MG Tab PO SCH (19:01)
[2018-11-23] MEDS: Simvastatin 10 MG Tab PO SCH (19:01)
[2018-11-23] MEDS: LEVOTHYROXINE SODIUM 137 MCG PO SCH (19:01)
[2018-11-24] MEDS: Citalopram 20 MG Tab PO SCH (07:24)
[2018-11-24] MEDS: Metoclopramide 10 MG Tab PO SCH ×2 (07:24→17:06)
[2018-11-24] MEDS: Potassium Chloride 10% 20 MEQ/15 ML Soln 15 ML UD Cup PO SCH ×3 (07:24→19:00)
[2018-11-24] MEDS: Furosemide 20 MG Tab PO SCH (07:25)
[2018-11-24] MEDS: Ibuprofen 600 MG Tab PO SCH ×2 (07:25→17:06)
[2018-11-24] MEDS: Fludrocortisone 0.1 MG Tab PO SCH ×2 (07:25→19:00)
[2018-11-24] MEDS: Albuterol/Ipratropium 3.0-0.5 MG/3 ML Neb Soln NEB SCH ×2 (07:25→19:01)
[2018-11-24] MEDS: Niacin 500 MG Tab PO SCH ×2 (07:25→17:06)
[2018-11-24] MEDS: Cholecalciferol (Vitamin D3) 25 MCG Tab PO SCH (07:26)
[2018-11-24] MEDS: Cyanocobalamin (Vitamin B12) 1,000 MCG Tab PO SCH (07:26)
[2018-11-24] MEDS: Acetaminophen 325 MG Tab PO PRN (08:55)
[2018-11-24] MEDS: Simvastatin 10 MG Tab PO SCH (19:00)
[2018-11-24] MEDS: LEVOTHYROXINE SODIUM 137 MCG PO SCH (19:00)
[2018-11-24] MEDS: buPROPion 100 MG Tab PO SCH (19:00)
[2018-11-25] MEDS: Metoclopramide 10 MG Tab PO SCH ×2 (07:47→17:23)
[2018-11-25] MEDS: Citalopram 20 MG Tab PO SCH (07:47)
[2018-11-25] MEDS: Fludrocortisone 0.1 MG Tab PO SCH ×2 (07:48→19:15)
[2018-11-25] MEDS: Ibuprofen 600 MG Tab PO SCH ×2 (07:48→17:23)
[2018-11-25] MEDS: Furosemide 20 MG Tab PO SCH (07:48)
[2018-11-25] MEDS: Albuterol/Ipratropium 3.0-0.5 MG/3 ML Neb Soln NEB SCH ×2 (07:48→19:15)
[2018-11-25] MEDS: Potassium Chloride 10% 20 MEQ/15 ML Soln 15 ML UD Cup PO SCH ×3 (07:49→19:16)
[2018-11-25] MEDS: Niacin 500 MG Tab PO SCH ×2 (07:49→17:24)
[2018-11-25] MEDS: Cyanocobalamin (Vitamin B12) 1,000 MCG Tab PO SCH (07:50)
[2018-11-25] MEDS: Cholecalciferol (Vitamin D3) 25 MCG Tab PO SCH (07:50)
[2018-11-25] MEDS: LEVOTHYROXINE SODIUM 137 MCG PO SCH (19:15)
[2018-11-25] MEDS: buPROPion 100 MG Tab PO SCH (19:16)
[2018-11-25] MEDS: Simvastatin 10 MG Tab PO SCH (19:16)
[2018-11-26] MEDS: Metoclopramide 10 MG Tab PO SCH ×2 (07:41→17:39)
[2018-11-26] MEDS: Furosemide 20 MG Tab PO SCH (07:42)
[2018-11-26] MEDS: Ibuprofen 600 MG Tab PO SCH ×2 (07:42→17:39)
[2018-11-26] MEDS: Albuterol/Ipratropium 3.0-0.5 MG/3 ML Neb Soln NEB SCH ×2 (07:42→19:33)
[2018-11-26] MEDS: Citalopram 20 MG Tab PO SCH (07:42)
[2018-11-26] MEDS: Fludrocortisone 0.1 MG Tab PO SCH ×2 (07:42→19:33)
[2018-11-26] MEDS: Cyanocobalamin (Vitamin B12) 1,000 MCG Tab PO SCH (07:43)
[2018-11-26] MEDS: Niacin 500 MG Tab PO SCH ×2 (07:43→17:40)
[2018-11-26] MEDS: Cholecalciferol (Vitamin D3) 25 MCG Tab PO SCH (07:44)
[2018-11-26] MEDS: Potassium Chloride 10% 20 MEQ/15 ML Soln 15 ML UD Cup PO SCH ×3 (07:44→19:34)
[2018-11-26] MEDS: LEVOTHYROXINE SODIUM 137 MCG PO SCH (19:33)
[2018-11-26] MEDS: buPROPion 100 MG Tab PO SCH (19:35)
[2018-11-26] MEDS: Simvastatin 10 MG Tab PO SCH (19:35)
[2018-11-27] MEDS: Metoclopramide 10 MG Tab PO SCH ×2 (07:52→17:38)
[2018-11-27] MEDS: Citalopram 20 MG Tab PO SCH (07:52)
[2018-11-27] MEDS: Furosemide 20 MG Tab PO SCH (07:53)
[2018-11-27] MEDS: Albuterol/Ipratropium 3.0-0.5 MG/3 ML Neb Soln NEB SCH ×2 (07:53→19:01)
[2018-11-27] MEDS: Ibuprofen 600 MG Tab PO SCH ×2 (07:53→17:38)
[2018-11-27] MEDS: Fludrocortisone 0.1 MG Tab PO SCH ×2 (07:53→19:02)
[2018-11-27] MEDS: Niacin 500 MG Tab PO SCH ×2 (07:54→17:38)
[2018-11-27] MEDS: Cyanocobalamin (Vitamin B12) 1,000 MCG Tab PO SCH (07:54)
[2018-11-27] MEDS: Potassium Chloride 10% 20 MEQ/15 ML Soln 15 ML UD Cup PO SCH ×3 (07:55→19:03)
[2018-11-27] MEDS: Cholecalciferol (Vitamin D3) 25 MCG Tab PO SCH (07:55)
[2018-11-27] MEDS: Simvastatin 10 MG Tab PO SCH (19:02)
[2018-11-27] MEDS: LEVOTHYROXINE SODIUM 137 MCG PO SCH (19:02)
[2018-11-27] MEDS: buPROPion 100 MG Tab PO SCH (19:02)
[2018-11-28] MEDS: Albuterol/Ipratropium 3.0-0.5 MG/3 ML Neb Soln NEB SCH ×2 (07:57→19:04)
[2018-11-28] MEDS: Fludrocortisone 0.1 MG Tab PO SCH ×2 (07:57→19:04)
[2018-11-28] MEDS: Metoclopramide 10 MG Tab PO SCH ×2 (07:57→17:26)
[2018-11-28] MEDS: Citalopram 20 MG Tab PO SCH (07:57)
[2018-11-28] MEDS: Furosemide 20 MG Tab PO SCH (07:57)
[2018-11-28] MEDS: Niacin 500 MG Tab PO SCH ×2 (07:58→17:26)
[2018-11-28] MEDS: Potassium Chloride 10% 20 MEQ/15 ML Soln 15 ML UD Cup PO SCH ×3 (07:58→19:04)
[2018-11-28] MEDS: Ibuprofen 600 MG Tab PO SCH ×2 (07:58→17:26)
[2018-11-28] MEDS: Cyanocobalamin (Vitamin B12) 1,000 MCG Tab PO SCH (07:59)
[2018-11-28] MEDS: Cholecalciferol (Vitamin D3) 25 MCG Tab PO SCH (07:59)
[2018-11-28] MEDS: Simvastatin 10 MG Tab PO SCH (19:04)
[2018-11-28] MEDS: buPROPion 100 MG Tab PO SCH (19:04)
[2018-11-28] MEDS: LEVOTHYROXINE SODIUM 137 MCG PO SCH (19:04)
[2018-11-29] MEDS: Albuterol/Ipratropium 3.0-0.5 MG/3 ML Neb Soln NEB SCH ×2 (07:56→19:10)
[2018-11-29] MEDS: Metoclopramide 10 MG Tab PO SCH ×2 (07:56→17:19)
[2018-11-29] MEDS: Fludrocortisone 0.1 MG Tab PO SCH ×2 (07:56→19:11)
[2018-11-29] MEDS: Furosemide 20 MG Tab PO SCH (07:56)
[2018-11-29] MEDS: Citalopram 20 MG Tab PO SCH (07:56)
[2018-11-29] MEDS: Ibuprofen 600 MG Tab PO SCH ×2 (07:56→17:19)
[2018-11-29] MEDS: Niacin 500 MG Tab PO SCH ×2 (07:57→17:19)
[2018-11-29] MEDS: Potassium Chloride 10% 20 MEQ/15 ML Soln 15 ML UD Cup PO SCH ×3 (07:57→19:12)
[2018-11-29] MEDS: Cholecalciferol (Vitamin D3) 25 MCG Tab PO SCH (07:58)
[2018-11-29] MEDS: Cyanocobalamin (Vitamin B12) 1,000 MCG Tab PO SCH (07:58)
[2018-11-29] MEDS: buPROPion 100 MG Tab PO SCH (19:11)
[2018-11-29] MEDS: LEVOTHYROXINE SODIUM 137 MCG PO SCH (19:11)
[2018-11-29] MEDS: Simvastatin 10 MG Tab PO SCH (19:12)
[2018-11-30] MEDS: Fludrocortisone 0.1 MG Tab PO SCH ×2 (07:53→19:15)
[2018-11-30] MEDS: Furosemide 20 MG Tab PO SCH (07:53)
[2018-11-30] MEDS: Metoclopramide 10 MG Tab PO SCH ×2 (07:53→17:10)
[2018-11-30] MEDS: Ibuprofen 600 MG Tab PO SCH ×2 (07:53→17:10)
[2018-11-30] MEDS: Citalopram 20 MG Tab PO SCH (07:53)
[2018-11-30] MEDS: Niacin 500 MG Tab PO SCH ×2 (07:54→17:11)
[2018-11-30] MEDS: Potassium Chloride 10% 20 MEQ/15 ML Soln 15 ML UD Cup PO SCH ×3 (07:55→19:16)
[2018-11-30] MEDS: Cholecalciferol (Vitamin D3) 25 MCG Tab PO SCH (07:56)
[2018-11-30] MEDS: Cyanocobalamin (Vitamin B12) 1,000 MCG Tab PO SCH (07:56)
[2018-11-30] MEDS: Albuterol/Ipratropium 3.0-0.5 MG/3 ML Neb Soln NEB SCH ×2 (07:57→19:15)
[2018-11-30] MEDS: buPROPion 100 MG Tab PO SCH (19:15)
[2018-11-30] MEDS: Simvastatin 10 MG Tab PO SCH (19:15)
[2018-11-30] MEDS: LEVOTHYROXINE SODIUM 137 MCG PO SCH (19:15)
[2018-12-01] MEDS: Citalopram 20 MG Tab PO SCH (07:49)
[2018-12-01] MEDS: Albuterol/Ipratropium 3.0-0.5 MG/3 ML Neb Soln NEB SCH ×2 (07:49→19:55)
[2018-12-01] MEDS: Fludrocortisone 0.1 MG Tab PO SCH ×2 (07:49→19:55)
[2018-12-01] MEDS: Furosemide 20 MG Tab PO SCH (07:49)
[2018-12-01] MEDS: Ibuprofen 600 MG Tab PO SCH ×2 (07:49→17:59)
[2018-12-01] MEDS: Metoclopramide 10 MG Tab PO SCH ×2 (07:49→17:59)
[2018-12-01] MEDS: Niacin 500 MG Tab PO SCH ×2 (07:50→17:59)
[2018-12-01] MEDS: Cyanocobalamin (Vitamin B12) 1,000 MCG Tab PO SCH (07:51)
[2018-12-01] MEDS: Cholecalciferol (Vitamin D3) 25 MCG Tab PO SCH (07:51)
[2018-12-01] MEDS: Potassium Chloride 10% 20 MEQ/15 ML Soln 15 ML UD Cup PO SCH ×3 (07:52→19:56)
[2018-12-01] MEDS: Acetaminophen 325 MG Tab PO PRN (13:47)
[2018-12-01] MEDS: LEVOTHYROXINE SODIUM 137 MCG PO SCH (19:56)
[2018-12-01] MEDS: buPROPion 100 MG Tab PO SCH (19:56)
[2018-12-01] MEDS: Simvastatin 10 MG Tab PO SCH (19:57)
[2018-12-02] MEDS: Citalopram 20 MG Tab PO SCH (08:04)
[2018-12-02] MEDS: Fludrocortisone 0.1 MG Tab PO SCH ×2 (08:04→19:54)
[2018-12-02] MEDS: Ibuprofen 600 MG Tab PO SCH ×2 (08:04→18:17)
[2018-12-02] MEDS: Furosemide 20 MG Tab PO SCH (08:04)
[2018-12-02] MEDS: Cyanocobalamin (Vitamin B12) 1,000 MCG Tab PO SCH (08:05)
[2018-12-02] MEDS: Metoclopramide 10 MG Tab PO SCH ×2 (08:05→18:17)
[2018-12-02] MEDS: Niacin 500 MG Tab PO SCH ×2 (08:05→18:18)
[2018-12-02] MEDS: Albuterol/Ipratropium 3.0-0.5 MG/3 ML Neb Soln NEB SCH ×2 (08:05→19:52)
[2018-12-02] MEDS: Potassium Chloride 10% 20 MEQ/15 ML Soln 15 ML UD Cup PO SCH ×3 (08:06→19:54)
[2018-12-02] MEDS: Cholecalciferol (Vitamin D3) 25 MCG Tab PO SCH (08:06)
[2018-12-02] MEDS: buPROPion 100 MG Tab PO SCH (19:53)
[2018-12-02] MEDS: Simvastatin 10 MG Tab PO SCH (19:53)
[2018-12-02] MEDS: LEVOTHYROXINE SODIUM 137 MCG PO SCH (19:54)
[2018-12-03] MEDS: Fludrocortisone 0.1 MG Tab PO SCH ×2 (07:37→19:35)
[2018-12-03] MEDS: Citalopram 20 MG Tab PO SCH (07:37)
[2018-12-03] MEDS: Metoclopramide 10 MG Tab PO SCH ×2 (07:37→18:13)
[2018-12-03] MEDS: Furosemide 20 MG Tab PO SCH (07:38)
[2018-12-03] MEDS: Ibuprofen 600 MG Tab PO SCH ×2 (07:38→18:13)
[2018-12-03] MEDS: Albuterol/Ipratropium 3.0-0.5 MG/3 ML Neb Soln NEB SCH ×2 (07:38→19:34)
[2018-12-03] MEDS: Niacin 500 MG Tab PO SCH ×2 (07:39→18:13)
[2018-12-03] MEDS: Cyanocobalamin (Vitamin B12) 1,000 MCG Tab PO SCH (07:39)
[2018-12-03] MEDS: Cholecalciferol (Vitamin D3) 25 MCG Tab PO SCH (07:39)
[2018-12-03] MEDS: Potassium Chloride 10% 20 MEQ/15 ML Soln 15 ML UD Cup PO SCH ×3 (07:40→19:36)
[2018-12-03] MEDS: Acetaminophen 325 MG Tab PO PRN (09:14)
[2018-12-03] MEDS: LEVOTHYROXINE SODIUM 137 MCG PO SCH (19:35)
[2018-12-03] MEDS: buPROPion 100 MG Tab PO SCH (19:35)
[2018-12-03] MEDS: Simvastatin 10 MG Tab PO SCH (19:35)
[2018-12-04] MEDS: Citalopram 20 MG Tab PO SCH (07:54)
[2018-12-04] MEDS: Metoclopramide 10 MG Tab PO SCH ×2 (07:54→18:35)
[2018-12-04] MEDS: Furosemide 20 MG Tab PO SCH (07:55)
[2018-12-04] MEDS: Fludrocortisone 0.1 MG Tab PO SCH ×2 (07:55→19:35)
[2018-12-04] MEDS: Ibuprofen 600 MG Tab PO SCH ×2 (07:55→18:36)
[2018-12-04] MEDS: Albuterol/Ipratropium 3.0-0.5 MG/3 ML Neb Soln NEB SCH ×2 (07:55→19:35)
[2018-12-04] MEDS: Niacin 500 MG Tab PO SCH ×2 (07:56→18:36)
[2018-12-04] MEDS: Cholecalciferol (Vitamin D3) 25 MCG Tab PO SCH (07:56)
[2018-12-04] MEDS: Cyanocobalamin (Vitamin B12) 1,000 MCG Tab PO SCH (07:56)
[2018-12-04] MEDS: Potassium Chloride 10% 20 MEQ/15 ML Soln 15 ML UD Cup PO SCH ×3 (07:57→19:36)
[2018-12-04] MEDS: buPROPion 100 MG Tab PO SCH (19:35)
[2018-12-04] MEDS: Simvastatin 10 MG Tab PO SCH (19:36)
[2018-12-04] MEDS: LEVOTHYROXINE SODIUM 137 MCG PO SCH (19:36)
[2018-12-05] MEDS: Metoclopramide 10 MG Tab PO SCH ×2 (07:37→17:22)
[2018-12-05] MEDS: Ibuprofen 600 MG Tab PO SCH ×2 (07:38→17:22)
[2018-12-05] MEDS: Fludrocortisone 0.1 MG Tab PO SCH ×2 (07:38→19:14)
[2018-12-05] MEDS: Furosemide 20 MG Tab PO SCH (07:38)
[2018-12-05] MEDS: Citalopram 20 MG Tab PO SCH (07:38)
[2018-12-05] MEDS: Albuterol/Ipratropium 3.0-0.5 MG/3 ML Neb Soln NEB SCH ×2 (07:38→19:14)
[2018-12-05] MEDS: Niacin 500 MG Tab PO SCH ×2 (07:39→17:22)
[2018-12-05] MEDS: Cyanocobalamin (Vitamin B12) 1,000 MCG Tab PO SCH (07:39)
[2018-12-05] MEDS: Cholecalciferol (Vitamin D3) 25 MCG Tab PO SCH (07:40)
[2018-12-05] MEDS: Potassium Chloride 10% 20 MEQ/15 ML Soln 15 ML UD Cup PO SCH ×3 (07:40→19:15)
[2018-12-05] MEDS: LEVOTHYROXINE SODIUM 137 MCG PO SCH (19:14)
[2018-12-05] MEDS: Simvastatin 10 MG Tab PO SCH (19:15)
[2018-12-05] MEDS: buPROPion 100 MG Tab PO SCH (19:15)
[2018-12-06] MEDS: Ibuprofen 600 MG Tab PO SCH ×2 (07:36→17:15)
[2018-12-06] MEDS: Metoclopramide 10 MG Tab PO SCH ×2 (07:36→17:15)
[2018-12-06] MEDS: Albuterol/Ipratropium 3.0-0.5 MG/3 ML Neb Soln NEB SCH ×2 (07:36→19:43)
[2018-12-06] MEDS: Fludrocortisone 0.1 MG Tab PO SCH ×2 (07:36→19:43)
[2018-12-06] MEDS: Furosemide 20 MG Tab PO SCH (07:36)
[2018-12-06] MEDS: Citalopram 20 MG Tab PO SCH (07:36)
[2018-12-06] MEDS: Niacin 500 MG Tab PO SCH ×2 (07:39→17:15)
[2018-12-06] MEDS: Cyanocobalamin (Vitamin B12) 1,000 MCG Tab PO SCH (07:40)
[2018-12-06] MEDS: Potassium Chloride 10% 20 MEQ/15 ML Soln 15 ML UD Cup PO SCH ×3 (07:40→19:44)
[2018-12-06] MEDS: Cholecalciferol (Vitamin D3) 25 MCG Tab PO SCH (07:41)
[2018-12-06] MEDS: Acetaminophen 325 MG Tab PO PRN (08:56)
[2018-12-06] MEDS: LEVOTHYROXINE SODIUM 137 MCG PO SCH (19:43)
[2018-12-06] MEDS: buPROPion 100 MG Tab PO SCH (19:45)
[2018-12-06] MEDS: Simvastatin 10 MG Tab PO SCH (19:45)
[2018-12-07] MEDS: Citalopram 20 MG Tab PO SCH (07:38)
[2018-12-07] MEDS: Metoclopramide 10 MG Tab PO SCH ×2 (07:38→17:58)
[2018-12-07] MEDS: Fludrocortisone 0.1 MG Tab PO SCH ×2 (07:38→19:21)
[2018-12-07] MEDS: Furosemide 20 MG Tab PO SCH (07:38)
[2018-12-07] MEDS: Ibuprofen 600 MG Tab PO SCH ×2 (07:39→17:58)
[2018-12-07] MEDS: Niacin 500 MG Tab PO SCH ×2 (07:39→17:59)
[2018-12-07] MEDS: Cyanocobalamin (Vitamin B12) 1,000 MCG Tab PO SCH (07:40)
[2018-12-07] MEDS: Potassium Chloride 10% 20 MEQ/15 ML Soln 15 ML UD Cup PO SCH ×3 (07:40→19:25)
[2018-12-07] MEDS: Cholecalciferol (Vitamin D3) 25 MCG Tab PO SCH (07:41)
[2018-12-07] MEDS: Albuterol/Ipratropium 3.0-0.5 MG/3 ML Neb Soln NEB SCH ×2 (09:10→19:21)
[2018-12-07] MEDS: LEVOTHYROXINE SODIUM 137 MCG PO SCH (19:21)
[2018-12-07] MEDS: buPROPion 100 MG Tab PO SCH (19:21)
[2018-12-07] MEDS: Simvastatin 10 MG Tab PO SCH (19:22)
[2018-12-08] MEDS: Albuterol/Ipratropium 3.0-0.5 MG/3 ML Neb Soln NEB SCH ×2 (07:14→19:26)
[2018-12-08] MEDS: Furosemide 20 MG Tab PO SCH (07:15)
[2018-12-08] MEDS: Fludrocortisone 0.1 MG Tab PO SCH ×2 (07:15→19:26)
[2018-12-08] MEDS: Citalopram 20 MG Tab PO SCH (07:15)
[2018-12-08] MEDS: Ibuprofen 600 MG Tab PO SCH ×2 (07:15→17:11)
[2018-12-08] MEDS: Metoclopramide 10 MG Tab PO SCH ×2 (07:15→17:11)
[2018-12-08] MEDS: Niacin 500 MG Tab PO SCH ×2 (07:16→17:11)
[2018-12-08] MEDS: Potassium Chloride 10% 20 MEQ/15 ML Soln 15 ML UD Cup PO SCH ×3 (07:16→19:27)
[2018-12-08] MEDS: Cyanocobalamin (Vitamin B12) 1,000 MCG Tab PO SCH (07:17)
[2018-12-08] MEDS: Cholecalciferol (Vitamin D3) 25 MCG Tab PO SCH (07:18)
[2018-12-08] MEDS: buPROPion 100 MG Tab PO SCH (19:26)
[2018-12-08] MEDS: Simvastatin 10 MG Tab PO SCH (19:26)
[2018-12-08] MEDS: LEVOTHYROXINE SODIUM 137 MCG PO SCH (19:26)
[2018-12-08] MEDS: Ibuprofen 600 MG Tab PO PRN (19:31)
[2018-12-09] MEDS: Metoclopramide 10 MG Tab PO SCH ×2 (07:40→17:10)
[2018-12-09] MEDS: Citalopram 20 MG Tab PO SCH (07:40)
[2018-12-09] MEDS: Fludrocortisone 0.1 MG Tab PO SCH ×2 (07:40→19:07)
[2018-12-09] MEDS: Albuterol/Ipratropium 3.0-0.5 MG/3 ML Neb Soln NEB SCH ×2 (07:40→19:06)
[2018-12-09] MEDS: Furosemide 20 MG Tab PO SCH (07:40)
[2018-12-09] MEDS: Potassium Chloride 10% 20 MEQ/15 ML Soln 15 ML UD Cup PO SCH ×3 (07:41→19:10)
[2018-12-09] MEDS: Ibuprofen 600 MG Tab PO SCH ×2 (07:41→17:10)
[2018-12-09] MEDS: Niacin 500 MG Tab PO SCH ×2 (07:41→17:11)
[2018-12-09] MEDS: Cyanocobalamin (Vitamin B12) 1,000 MCG Tab PO SCH (07:42)
[2018-12-09] MEDS: Cholecalciferol (Vitamin D3) 25 MCG Tab PO SCH (07:42)
[2018-12-09] MEDS: LEVOTHYROXINE SODIUM 137 MCG PO SCH (19:07)
[2018-12-09] MEDS: buPROPion 100 MG Tab PO SCH (19:08)
[2018-12-09] MEDS: Simvastatin 10 MG Tab PO SCH (19:08)
[2018-12-10] MEDS: Metoclopramide 10 MG Tab PO SCH ×2 (07:37→17:42)
[2018-12-10] MEDS: Albuterol/Ipratropium 3.0-0.5 MG/3 ML Neb Soln NEB SCH ×2 (07:37→19:22)
[2018-12-10] MEDS: Citalopram 20 MG Tab PO SCH (07:37)
[2018-12-10] MEDS: Fludrocortisone 0.1 MG Tab PO SCH ×2 (07:38→19:23)
[2018-12-10] MEDS: Niacin 500 MG Tab PO SCH ×2 (07:38→17:43)
[2018-12-10] MEDS: Ibuprofen 600 MG Tab PO SCH ×2 (07:38→17:43)
[2018-12-10] MEDS: Furosemide 20 MG Tab PO SCH (07:38)
[2018-12-10] MEDS: Cyanocobalamin (Vitamin B12) 1,000 MCG Tab PO SCH (07:39)
[2018-12-10] MEDS: Cholecalciferol (Vitamin D3) 25 MCG Tab PO SCH (07:39)
[2018-12-10] MEDS: Potassium Chloride 10% 20 MEQ/15 ML Soln 15 ML UD Cup PO SCH ×3 (07:40→19:23)
[2018-12-10] MEDS: LEVOTHYROXINE SODIUM 137 MCG PO SCH (19:23)
[2018-12-10] MEDS: Simvastatin 10 MG Tab PO SCH (19:24)
[2018-12-10] MEDS: buPROPion 100 MG Tab PO SCH (19:24)
[2018-12-11] MEDS: Citalopram 20 MG Tab PO SCH (07:31)
[2018-12-11] MEDS: Metoclopramide 10 MG Tab PO SCH ×2 (07:31→17:10)
[2018-12-11] MEDS: Albuterol/Ipratropium 3.0-0.5 MG/3 ML Neb Soln NEB SCH ×2 (07:31→19:09)
[2018-12-11] MEDS: Fludrocortisone 0.1 MG Tab PO SCH ×2 (07:32→19:11)
[2018-12-11] MEDS: Furosemide 20 MG Tab PO SCH (07:32)
[2018-12-11] MEDS: Potassium Chloride 10% 20 MEQ/15 ML Soln 15 ML UD Cup PO SCH ×3 (07:33→19:13)
[2018-12-11] MEDS: Ibuprofen 600 MG Tab PO SCH ×2 (07:33→17:10)
[2018-12-11] MEDS: Niacin 500 MG Tab PO SCH ×2 (07:33→17:11)
[2018-12-11] MEDS: Cyanocobalamin (Vitamin B12) 1,000 MCG Tab PO SCH (07:34)
[2018-12-11] MEDS: Cholecalciferol (Vitamin D3) 25 MCG Tab PO SCH (07:34)
[2018-12-11] MEDS: LEVOTHYROXINE SODIUM 137 MCG PO SCH (19:11)
[2018-12-11] MEDS: Simvastatin 10 MG Tab PO SCH (19:12)
[2018-12-11] MEDS: buPROPion 100 MG Tab PO SCH (19:12)
[2018-12-12] MEDS: Potassium Chloride 10% 20 MEQ/15 ML Soln 15 ML UD Cup PO SCH ×3 (08:34→19:27)
[2018-12-12] MEDS: Metoclopramide 10 MG Tab PO SCH ×2 (08:36→17:57)
[2018-12-12] MEDS: Fludrocortisone 0.1 MG Tab PO SCH ×2 (08:36→19:25)
[2018-12-12] MEDS: Furosemide 20 MG Tab PO SCH (08:37)
[2018-12-12] MEDS: Ibuprofen 600 MG Tab PO SCH ×2 (08:37→17:57)
[2018-12-12] MEDS: Cyanocobalamin (Vitamin B12) 1,000 MCG Tab PO SCH (08:39)
[2018-12-12] MEDS: Citalopram 20 MG Tab PO SCH (08:40)
[2018-12-12] MEDS: Albuterol/Ipratropium 3.0-0.5 MG/3 ML Neb Soln NEB SCH ×2 (08:40→19:27)
[2018-12-12] MEDS: Cholecalciferol (Vitamin D3) 25 MCG Tab PO SCH (08:40)
[2018-12-12] MEDS: Niacin 500 MG Tab PO SCH ×2 (08:41→17:58)
[2018-12-12] MEDS: LEVOTHYROXINE SODIUM 137 MCG PO SCH (19:25)
[2018-12-12] MEDS: Acetaminophen 325 MG Tab PO PRN (19:26)
[2018-12-12] MEDS: buPROPion 100 MG Tab PO SCH (19:26)
[2018-12-12] MEDS: Simvastatin 10 MG Tab PO SCH (19:26)
[2018-12-13] MEDS: Furosemide 20 MG Tab PO SCH (08:05)
[2018-12-13] MEDS: Metoclopramide 10 MG Tab PO SCH ×2 (08:05→17:46)
[2018-12-13] MEDS: Citalopram 20 MG Tab PO SCH (08:05)
[2018-12-13] MEDS: Albuterol/Ipratropium 3.0-0.5 MG/3 ML Neb Soln NEB SCH ×2 (08:05→19:12)
[2018-12-13] MEDS: Fludrocortisone 0.1 MG Tab PO SCH ×2 (08:05→19:12)
[2018-12-13] MEDS: Cyanocobalamin (Vitamin B12) 1,000 MCG Tab PO SCH (08:06)
[2018-12-13] MEDS: Niacin 500 MG Tab PO SCH ×2 (08:06→17:46)
[2018-12-13] MEDS: Ibuprofen 600 MG Tab PO SCH ×2 (08:06→17:46)
[2018-12-13] MEDS: Potassium Chloride 10% 20 MEQ/15 ML Soln 15 ML UD Cup PO SCH ×3 (08:07→19:13)
[2018-12-13] MEDS: Cholecalciferol (Vitamin D3) 25 MCG Tab PO SCH (08:07)
[2018-12-13] MEDS: LEVOTHYROXINE SODIUM 137 MCG PO SCH (19:13)
[2018-12-13] MEDS: buPROPion 100 MG Tab PO SCH (19:13)
[2018-12-13] MEDS: Simvastatin 10 MG Tab PO SCH (19:13)
[2018-12-13] MEDS: Acetaminophen 325 MG Tab PO PRN (19:14)
[2018-12-14] MEDS: Citalopram 20 MG Tab PO SCH (07:47)
[2018-12-14] MEDS: Metoclopramide 10 MG Tab PO SCH ×2 (07:47→17:18)
[2018-12-14] MEDS: Fludrocortisone 0.1 MG Tab PO SCH ×2 (07:48→19:22)
[2018-12-14] MEDS: Ibuprofen 600 MG Tab PO SCH ×2 (07:48→17:18)
[2018-12-14] MEDS: Niacin 500 MG Tab PO SCH ×2 (07:48→17:19)
[2018-12-14] MEDS: Albuterol/Ipratropium 3.0-0.5 MG/3 ML Neb Soln NEB SCH ×2 (07:48→19:22)
[2018-12-14] MEDS: Furosemide 20 MG Tab PO SCH (07:48)
[2018-12-14] MEDS: Cholecalciferol (Vitamin D3) 25 MCG Tab PO SCH (07:49)
[2018-12-14] MEDS: Cyanocobalamin (Vitamin B12) 1,000 MCG Tab PO SCH (07:49)
[2018-12-14] MEDS: Potassium Chloride 10% 20 MEQ/15 ML Soln 15 ML UD Cup PO SCH ×3 (07:49→19:23)
[2018-12-14] MEDS: Acetaminophen 325 MG Tab PO PRN ×2 (12:45→19:24)
[2018-12-14] MEDS: LEVOTHYROXINE SODIUM 137 MCG PO SCH (19:22)
[2018-12-14] MEDS: Simvastatin 10 MG Tab PO SCH (19:23)
[2018-12-14] MEDS: buPROPion 100 MG Tab PO SCH (19:23)
[2018-12-15] MEDS: Metoclopramide 10 MG Tab PO SCH ×2 (07:54→17:08)
[2018-12-15] MEDS: Potassium Chloride 10% 20 MEQ/15 ML Soln 15 ML UD Cup PO SCH ×3 (07:54→19:25)
[2018-12-15] MEDS: Citalopram 20 MG Tab PO SCH (07:54)
[2018-12-15] MEDS: Furosemide 20 MG Tab PO SCH (07:55)
[2018-12-15] MEDS: Albuterol/Ipratropium 3.0-0.5 MG/3 ML Neb Soln NEB SCH ×2 (07:55→19:25)
[2018-12-15] MEDS: Fludrocortisone 0.1 MG Tab PO SCH ×2 (07:55→19:25)
[2018-12-15] MEDS: Ibuprofen 600 MG Tab PO SCH ×2 (07:55→17:08)
[2018-12-15] MEDS: Niacin 500 MG Tab PO SCH ×2 (07:56→17:09)
[2018-12-15] MEDS: Cholecalciferol (Vitamin D3) 25 MCG Tab PO SCH (07:56)
[2018-12-15] MEDS: Cyanocobalamin (Vitamin B12) 1,000 MCG Tab PO SCH (07:56)
[2018-12-15] MEDS: LEVOTHYROXINE SODIUM 137 MCG PO SCH (19:25)
[2018-12-15] MEDS: Simvastatin 10 MG Tab PO SCH (19:26)
[2018-12-15] MEDS: buPROPion 100 MG Tab PO SCH (19:26)
[2018-12-15] MEDS: Acetaminophen 325 MG Tab PO PRN (19:28)
[2018-12-16] MEDS: Albuterol/Ipratropium 3.0-0.5 MG/3 ML Neb Soln NEB SCH ×2 (07:56→19:29)
[2018-12-16] MEDS: Metoclopramide 10 MG Tab PO SCH ×2 (07:56→17:51)
[2018-12-16] MEDS: Citalopram 20 MG Tab PO SCH (07:57)
[2018-12-16] MEDS: Furosemide 20 MG Tab PO SCH (07:57)
[2018-12-16] MEDS: Ibuprofen 600 MG Tab PO SCH ×2 (07:57→17:50)
[2018-12-16] MEDS: Fludrocortisone 0.1 MG Tab PO SCH ×2 (07:57→19:30)
[2018-12-16] MEDS: Cholecalciferol (Vitamin D3) 25 MCG Tab PO SCH (07:58)
[2018-12-16] MEDS: Cyanocobalamin (Vitamin B12) 1,000 MCG Tab PO SCH (07:58)
[2018-12-16] MEDS: Niacin 500 MG Tab PO SCH ×2 (07:58→17:51)
[2018-12-16] MEDS: Potassium Chloride 10% 20 MEQ/15 ML Soln 15 ML UD Cup PO SCH ×3 (07:59→19:30)
[2018-12-16] MEDS: LEVOTHYROXINE SODIUM 137 MCG PO SCH (19:30)
[2018-12-16] MEDS: buPROPion 100 MG Tab PO SCH (19:31)
[2018-12-16] MEDS: Simvastatin 10 MG Tab PO SCH (19:31)
[2018-12-16] MEDS: Acetaminophen 325 MG Tab PO PRN (19:32)
[2018-12-17] MEDS: Albuterol/Ipratropium 3.0-0.5 MG/3 ML Neb Soln NEB SCH ×2 (07:47→19:27)
[2018-12-17] MEDS: Metoclopramide 10 MG Tab PO SCH ×2 (07:50→17:51)
[2018-12-17] MEDS: Ibuprofen 600 MG Tab PO SCH ×2 (07:50→17:51)
[2018-12-17] MEDS: Furosemide 20 MG Tab PO SCH (07:50)
[2018-12-17] MEDS: Fludrocortisone 0.1 MG Tab PO SCH ×2 (07:50→19:28)
[2018-12-17] MEDS: Citalopram 20 MG Tab PO SCH (07:51)
[2018-12-17] MEDS: Niacin 500 MG Tab PO SCH ×2 (07:51→17:51)
[2018-12-17] MEDS: Potassium Chloride 10% 20 MEQ/15 ML Soln 15 ML UD Cup PO SCH ×3 (07:51→19:29)
[2018-12-17] MEDS: Cyanocobalamin (Vitamin B12) 1,000 MCG Tab PO SCH (07:52)
[2018-12-17] MEDS: Cholecalciferol (Vitamin D3) 25 MCG Tab PO SCH (07:52)
[2018-12-17] MEDS: LEVOTHYROXINE SODIUM 137 MCG PO SCH (19:28)
[2018-12-17] MEDS: Simvastatin 10 MG Tab PO SCH (19:28)
[2018-12-17] MEDS: buPROPion 100 MG Tab PO SCH (19:28)
[2018-12-17] MEDS: Acetaminophen 325 MG Tab PO PRN (22:24)
[2018-12-18] MEDS: Metoclopramide 10 MG Tab PO SCH ×2 (07:50→17:03)
[2018-12-18] MEDS: Citalopram 20 MG Tab PO SCH (07:51)
[2018-12-18] MEDS: Albuterol/Ipratropium 3.0-0.5 MG/3 ML Neb Soln NEB SCH ×2 (07:51→19:02)
[2018-12-18] MEDS: Fludrocortisone 0.1 MG Tab PO SCH ×2 (07:51→19:01)
[2018-12-18] MEDS: Ibuprofen 600 MG Tab PO SCH ×2 (07:52→17:03)
[2018-12-18] MEDS: Furosemide 20 MG Tab PO SCH (07:52)
[2018-12-18] MEDS: Niacin 500 MG Tab PO SCH ×2 (07:53→17:03)
[2018-12-18] MEDS: Potassium Chloride 10% 20 MEQ/15 ML Soln 15 ML UD Cup PO SCH ×3 (07:55→19:01)
[2018-12-18] MEDS: Cyanocobalamin (Vitamin B12) 1,000 MCG Tab PO SCH (07:55)
[2018-12-18] MEDS: Cholecalciferol (Vitamin D3) 25 MCG Tab PO SCH (07:55)
[2018-12-18] MEDS: LEVOTHYROXINE SODIUM 137 MCG PO SCH (19:01)
[2018-12-18] MEDS: Simvastatin 10 MG Tab PO SCH (19:01)
[2018-12-18] MEDS: buPROPion 100 MG Tab PO SCH (19:01)
[2018-12-19] MEDS: Potassium Chloride 10% 20 MEQ/15 ML Soln 15 ML UD Cup PO SCH ×3 (07:51→19:02)
[2018-12-19] MEDS: Albuterol/Ipratropium 3.0-0.5 MG/3 ML Neb Soln NEB SCH ×2 (07:52→19:02)
[2018-12-19] MEDS: Furosemide 20 MG Tab PO SCH (07:52)
[2018-12-19] MEDS: Metoclopramide 10 MG Tab PO SCH ×2 (07:52→17:08)
[2018-12-19] MEDS: Citalopram 20 MG Tab PO SCH (07:52)
[2018-12-19] MEDS: Ibuprofen 600 MG Tab PO SCH ×2 (07:52→17:09)
[2018-12-19] MEDS: Fludrocortisone 0.1 MG Tab PO SCH ×2 (07:52→19:02)
[2018-12-19] MEDS: Cyanocobalamin (Vitamin B12) 1,000 MCG Tab PO SCH (07:53)
[2018-12-19] MEDS: Niacin 500 MG Tab PO SCH ×2 (07:53→17:09)
[2018-12-19] MEDS: Cholecalciferol (Vitamin D3) 25 MCG Tab PO SCH (07:53)
[2018-12-19] MEDS: LEVOTHYROXINE SODIUM 137 MCG PO SCH (19:03)
[2018-12-19] MEDS: buPROPion 100 MG Tab PO SCH (19:03)
[2018-12-19] MEDS: Simvastatin 10 MG Tab PO SCH (19:03)
[2018-12-20] MEDS: Citalopram 20 MG Tab PO SCH (07:48)
[2018-12-20] MEDS: Albuterol/Ipratropium 3.0-0.5 MG/3 ML Neb Soln NEB SCH ×2 (07:48→19:08)
[2018-12-20] MEDS: Metoclopramide 10 MG Tab PO SCH ×2 (07:48→17:10)
[2018-12-20] MEDS: Potassium Chloride 10% 20 MEQ/15 ML Soln 15 ML UD Cup PO SCH ×3 (07:48→19:08)
[2018-12-20] MEDS: Ibuprofen 600 MG Tab PO SCH ×2 (07:49→17:10)
[2018-12-20] MEDS: Furosemide 20 MG Tab PO SCH (07:49)
[2018-12-20] MEDS: Fludrocortisone 0.1 MG Tab PO SCH ×2 (07:49→19:08)
[2018-12-20] MEDS: Niacin 500 MG Tab PO SCH ×2 (07:50→17:10)
[2018-12-20] MEDS: Cyanocobalamin (Vitamin B12) 1,000 MCG Tab PO SCH (07:51)
[2018-12-20] MEDS: Cholecalciferol (Vitamin D3) 25 MCG Tab PO SCH (07:51)
[2018-12-20] MEDS: Simvastatin 10 MG Tab PO SCH (19:08)
[2018-12-20] MEDS: LEVOTHYROXINE SODIUM 137 MCG PO SCH (19:08)
[2018-12-20] MEDS: buPROPion 100 MG Tab PO SCH (19:08)
[2018-12-21] MEDS: Albuterol/Ipratropium 3.0-0.5 MG/3 ML Neb Soln NEB SCH ×2 (07:46→19:21)
[2018-12-21] MEDS: Potassium Chloride 10% 20 MEQ/15 ML Soln 15 ML UD Cup PO SCH ×3 (08:11→19:23)
[2018-12-21] MEDS: Metoclopramide 10 MG Tab PO SCH ×2 (08:12→18:06)
[2018-12-21] MEDS: Niacin 500 MG Tab PO SCH ×2 (08:12→18:07)
[2018-12-21] MEDS: Citalopram 20 MG Tab PO SCH (08:12)
[2018-12-21] MEDS: Fludrocortisone 0.1 MG Tab PO SCH ×2 (08:13→19:22)
[2018-12-21] MEDS: Furosemide 20 MG Tab PO SCH (08:13)
[2018-12-21] MEDS: Ibuprofen 600 MG Tab PO SCH ×2 (08:13→18:06)
[2018-12-21] MEDS: Cyanocobalamin (Vitamin B12) 1,000 MCG Tab PO SCH (08:14)
[2018-12-21] MEDS: Cholecalciferol (Vitamin D3) 25 MCG Tab PO SCH (08:15)
[2018-12-21] MEDS: buPROPion 100 MG Tab PO SCH (19:22)
[2018-12-21] MEDS: LEVOTHYROXINE SODIUM 137 MCG PO SCH (19:22)
[2018-12-21] MEDS: Simvastatin 10 MG Tab PO SCH (19:22)
[2018-12-22] MEDS: Albuterol/Ipratropium 3.0-0.5 MG/3 ML Neb Soln NEB SCH ×2 (07:32→19:16)
[2018-12-22] MEDS: Fludrocortisone 0.1 MG Tab PO SCH ×2 (07:33→19:17)
[2018-12-22] MEDS: Citalopram 20 MG Tab PO SCH (07:33)
[2018-12-22] MEDS: Metoclopramide 10 MG Tab PO SCH ×2 (07:33→17:15)
[2018-12-22] MEDS: Ibuprofen 600 MG Tab PO SCH ×2 (07:33→17:15)
[2018-12-22] MEDS: Furosemide 20 MG Tab PO SCH (07:33)
[2018-12-22] MEDS: Niacin 500 MG Tab PO SCH ×2 (07:34→17:15)
[2018-12-22] MEDS: Potassium Chloride 10% 20 MEQ/15 ML Soln 15 ML UD Cup PO SCH ×3 (07:35→19:18)
[2018-12-22] MEDS: Cyanocobalamin (Vitamin B12) 1,000 MCG Tab PO SCH (07:35)
[2018-12-22] MEDS: Cholecalciferol (Vitamin D3) 25 MCG Tab PO SCH (07:35)
[2018-12-22] MEDS: LEVOTHYROXINE SODIUM 137 MCG PO SCH (19:17)
[2018-12-22] MEDS: Simvastatin 10 MG Tab PO SCH (19:18)
[2018-12-22] MEDS: buPROPion 100 MG Tab PO SCH (19:18)
[2018-12-23] MEDS: Albuterol/Ipratropium 3.0-0.5 MG/3 ML Neb Soln NEB SCH ×2 (07:33→19:15)
[2018-12-23] MEDS: Metoclopramide 10 MG Tab PO SCH ×2 (07:35→17:44)
[2018-12-23] MEDS: Ibuprofen 600 MG Tab PO SCH ×2 (07:35→17:44)
[2018-12-23] MEDS: Citalopram 20 MG Tab PO SCH (07:35)
[2018-12-23] MEDS: Furosemide 20 MG Tab PO SCH (07:35)
[2018-12-23] MEDS: Fludrocortisone 0.1 MG Tab PO SCH ×2 (07:35→19:17)
[2018-12-23] MEDS: Cyanocobalamin (Vitamin B12) 1,000 MCG Tab PO SCH (07:36)
[2018-12-23] MEDS: Niacin 500 MG Tab PO SCH ×2 (07:36→17:44)
[2018-12-23] MEDS: Potassium Chloride 10% 20 MEQ/15 ML Soln 15 ML UD Cup PO SCH ×3 (07:37→19:18)
[2018-12-23] MEDS: Cholecalciferol (Vitamin D3) 25 MCG Tab PO SCH (07:37)
[2018-12-23] MEDS: LEVOTHYROXINE SODIUM 137 MCG PO SCH (19:18)
[2018-12-23] MEDS: buPROPion 100 MG Tab PO SCH (19:19)
[2018-12-23] MEDS: Simvastatin 10 MG Tab PO SCH (19:19)
[2018-12-24] MEDS: Metoclopramide 10 MG Tab PO SCH ×2 (07:46→17:13)
[2018-12-24] MEDS: Citalopram 20 MG Tab PO SCH (07:46)
[2018-12-24] MEDS: Furosemide 20 MG Tab PO SCH (07:47)
[2018-12-24] MEDS: Ibuprofen 600 MG Tab PO SCH ×2 (07:47→17:14)
[2018-12-24] MEDS: Albuterol/Ipratropium 3.0-0.5 MG/3 ML Neb Soln NEB SCH (07:47)
[2018-12-24] MEDS: Fludrocortisone 0.1 MG Tab PO SCH (07:47)
[2018-12-24] MEDS: Niacin 500 MG Tab PO SCH ×2 (07:48→17:14)
[2018-12-24] MEDS: Cyanocobalamin (Vitamin B12) 1,000 MCG Tab PO SCH (07:48)
[2018-12-24] MEDS: Potassium Chloride 10% 20 MEQ/15 ML Soln 15 ML UD Cup PO SCH ×2 (07:48→13:31)
[2018-12-24] MEDS: Cholecalciferol (Vitamin D3) 25 MCG Tab PO SCH (07:49)
[2018-12-25] MEDS: Albuterol/Ipratropium 3.0-0.5 MG/3 ML Neb Soln NEB SCH ×3 (04:16→19:25)
[2018-12-25] MEDS: LEVOTHYROXINE SODIUM 137 MCG PO SCH ×2 (04:16→19:26)
[2018-12-25] MEDS: Fludrocortisone 0.1 MG Tab PO SCH ×3 (04:16→19:26)
[2018-12-25] MEDS: Potassium Chloride 10% 20 MEQ/15 ML Soln 15 ML UD Cup PO SCH ×4 (04:16→19:26)
[2018-12-25] MEDS: Simvastatin 10 MG Tab PO SCH ×2 (04:17→19:27)
[2018-12-25] MEDS: buPROPion 100 MG Tab PO SCH ×2 (04:17→19:27)
[2018-12-25] MEDS: Citalopram 20 MG Tab PO SCH (07:43)
[2018-12-25] MEDS: Ibuprofen 600 MG Tab PO SCH ×2 (07:43→17:39)
[2018-12-25] MEDS: Furosemide 20 MG Tab PO SCH (07:43)
[2018-12-25] MEDS: Metoclopramide 10 MG Tab PO SCH ×2 (07:43→17:39)
[2018-12-25] MEDS: Niacin 500 MG Tab PO SCH ×2 (07:44→17:40)
[2018-12-25] MEDS: Cholecalciferol (Vitamin D3) 25 MCG Tab PO SCH (07:45)
[2018-12-25] MEDS: Cyanocobalamin (Vitamin B12) 1,000 MCG Tab PO SCH (07:45)
[2018-12-26] MEDS: Citalopram 20 MG Tab PO SCH (07:55)
[2018-12-26] MEDS: Metoclopramide 10 MG Tab PO SCH ×2 (07:55→17:28)
[2018-12-26] MEDS: Albuterol/Ipratropium 3.0-0.5 MG/3 ML Neb Soln NEB SCH ×2 (07:55→19:18)
[2018-12-26] MEDS: Furosemide 20 MG Tab PO SCH (07:56)
[2018-12-26] MEDS: Ibuprofen 600 MG Tab PO SCH ×2 (07:56→17:28)
[2018-12-26] MEDS: Fludrocortisone 0.1 MG Tab PO SCH ×2 (07:56→19:18)
[2018-12-26] MEDS: Potassium Chloride 10% 20 MEQ/15 ML Soln 15 ML UD Cup PO SCH ×3 (07:57→19:19)
[2018-12-26] MEDS: Cyanocobalamin (Vitamin B12) 1,000 MCG Tab PO SCH (07:57)
[2018-12-26] MEDS: Niacin 500 MG Tab PO SCH ×2 (07:57→17:29)
[2018-12-26] MEDS: Cholecalciferol (Vitamin D3) 25 MCG Tab PO SCH (07:58)
[2018-12-26] MEDS: LEVOTHYROXINE SODIUM 137 MCG PO SCH (19:19)
[2018-12-26] MEDS: buPROPion 100 MG Tab PO SCH (19:19)
[2018-12-26] MEDS: Simvastatin 10 MG Tab PO SCH (19:20)
[2018-12-27] MEDS: Fludrocortisone 0.1 MG Tab PO SCH ×2 (07:58→19:23)
[2018-12-27] MEDS: Citalopram 20 MG Tab PO SCH (07:58)
[2018-12-27] MEDS: Albuterol/Ipratropium 3.0-0.5 MG/3 ML Neb Soln NEB SCH ×2 (07:58→19:23)
[2018-12-27] MEDS: Ibuprofen 600 MG Tab PO SCH ×2 (07:58→17:36)
[2018-12-27] MEDS: Metoclopramide 10 MG Tab PO SCH ×2 (07:58→17:36)
[2018-12-27] MEDS: Furosemide 20 MG Tab PO SCH (07:58)
[2018-12-27] MEDS: Niacin 500 MG Tab PO SCH ×2 (07:59→17:37)
[2018-12-27] MEDS: Cyanocobalamin (Vitamin B12) 1,000 MCG Tab PO SCH (07:59)
[2018-12-27] MEDS: Cholecalciferol (Vitamin D3) 25 MCG Tab PO SCH (08:00)
[2018-12-27] MEDS: Potassium Chloride 10% 20 MEQ/15 ML Soln 15 ML UD Cup PO SCH ×3 (08:00→19:24)
[2018-12-27] MEDS: Simvastatin 10 MG Tab PO SCH (19:23)
[2018-12-27] MEDS: buPROPion 100 MG Tab PO SCH (19:23)
[2018-12-27] MEDS: LEVOTHYROXINE SODIUM 137 MCG PO SCH (19:23)
[2018-12-28] MEDS: Albuterol/Ipratropium 3.0-0.5 MG/3 ML Neb Soln NEB SCH ×2 (08:00→19:36)
[2018-12-28] MEDS: Furosemide 20 MG Tab PO SCH (08:01)
[2018-12-28] MEDS: Metoclopramide 10 MG Tab PO SCH ×2 (08:01→17:22)
[2018-12-28] MEDS: Citalopram 20 MG Tab PO SCH (08:01)
[2018-12-28] MEDS: Fludrocortisone 0.1 MG Tab PO SCH ×2 (08:01→19:36)
[2018-12-28] MEDS: Ibuprofen 600 MG Tab PO SCH ×2 (08:02→17:23)
[2018-12-28] MEDS: Cholecalciferol (Vitamin D3) 25 MCG Tab PO SCH (08:03)
[2018-12-28] MEDS: Cyanocobalamin (Vitamin B12) 1,000 MCG Tab PO SCH (08:03)
[2018-12-28] MEDS: Niacin 500 MG Tab PO SCH ×2 (08:03→17:23)
[2018-12-28] MEDS: Potassium Chloride 10% 20 MEQ/15 ML Soln 15 ML UD Cup PO SCH ×3 (08:03→19:38)
[2018-12-28] MEDS: LEVOTHYROXINE SODIUM 137 MCG PO SCH (19:36)
[2018-12-28] MEDS: buPROPion 100 MG Tab PO SCH (19:38)
[2018-12-28] MEDS: Simvastatin 10 MG Tab PO SCH (19:38)
[2018-12-29] MEDS: Albuterol/Ipratropium 3.0-0.5 MG/3 ML Neb Soln NEB PRN (00:16)
[2018-12-29] MEDS: guaiFENesin/Dextromethorphan 100-10 MG/5 ML Soln 10 ML Cup PO PRN (00:27)
[2018-12-29 07:14] LABS: HEMOGLOBIN A1C 5.3 % (4.3-5.7)
[2018-12-29 07:37] LABS: CHLORIDE,CL 107 mmol/L (98-107); SODIUM,NA 145 mmol/L (136-145)
[2018-12-29] MEDS: Fludrocortisone 0.1 MG Tab PO SCH ×2 (07:51→19:21)
[2018-12-29] MEDS: Citalopram 20 MG Tab PO SCH (07:51)
[2018-12-29] MEDS: Furosemide 20 MG Tab PO SCH (07:51)
[2018-12-29] MEDS: Metoclopramide 10 MG Tab PO SCH ×2 (07:51→17:15)
[2018-12-29] MEDS: Albuterol/Ipratropium 3.0-0.5 MG/3 ML Neb Soln NEB SCH ×2 (07:51→19:21)
[2018-12-29] MEDS: Potassium Chloride 10% 20 MEQ/15 ML Soln 15 ML UD Cup PO SCH ×3 (07:52→19:22)
[2018-12-29] MEDS: Niacin 500 MG Tab PO SCH ×2 (07:52→17:16)
[2018-12-29] MEDS: Ibuprofen 600 MG Tab PO SCH ×2 (07:52→17:15)
[2018-12-29] MEDS: Cholecalciferol (Vitamin D3) 25 MCG Tab PO SCH (07:53)
[2018-12-29] MEDS: Cyanocobalamin (Vitamin B12) 1,000 MCG Tab PO SCH (07:53)
[2018-12-29] MEDS: LEVOTHYROXINE SODIUM 137 MCG PO SCH (19:21)
[2018-12-29] MEDS: buPROPion 100 MG Tab PO SCH (19:21)
[2018-12-29] MEDS: Simvastatin 10 MG Tab PO SCH (19:21)
[2018-12-30] MEDS: Furosemide 20 MG Tab PO SCH (07:41)
[2018-12-30] MEDS: Albuterol/Ipratropium 3.0-0.5 MG/3 ML Neb Soln NEB SCH ×2 (07:41→19:21)
[2018-12-30] MEDS: Ibuprofen 600 MG Tab PO SCH ×2 (07:41→17:16)
[2018-12-30] MEDS: Citalopram 20 MG Tab PO SCH (07:41)
[2018-12-30] MEDS: Fludrocortisone 0.1 MG Tab PO SCH ×2 (07:41→19:22)
[2018-12-30] MEDS: Metoclopramide 10 MG Tab PO SCH ×2 (07:41→17:16)
[2018-12-30] MEDS: Potassium Chloride 10% 20 MEQ/15 ML Soln 15 ML UD Cup PO SCH ×3 (07:42→19:22)
[2018-12-30] MEDS: Niacin 500 MG Tab PO SCH ×2 (07:42→17:16)
[2018-12-30] MEDS: Cholecalciferol (Vitamin D3) 25 MCG Tab PO SCH (07:43)
[2018-12-30] MEDS: Cyanocobalamin (Vitamin B12) 1,000 MCG Tab PO SCH (07:43)
--- NOTE | 2018-12-30 13:27 | PCM.PN ---
- General Info Date of Service: 12/30/18 Admission Dx/Problem (Free Text): Myotonic dystrophy Functional Status: Reports: Pain Controlled, Tolerating Diet, Ambulating, Incentive Spirometry. Denies: New Symptoms Pain Score: 0 - Review of Systems General: Reports: Weakness (Stable chronic), Fatigue (Stable chronic). Denies: Fever, Malaise, Chills, Night Sweats, Appetite (Adequate) HEENT: Reports: No Symptoms. Denies: Ear Pain, Eye Pain, Glasses, Headaches, Sinus Congestion, Sore Throat, Rhinitis, Visual Changes Pulmonary: Reports: No Symptoms. Denies: Shortness of Breath, Pleuritic Chest Pain, Cough, Sputum, Hemoptysis, Wheezing Cardiovascular: Reports: No Symptoms, Edema (Stable dependent). Denies: Chest Pain, Palpitations, Dyspnea on Exertion, Orthopnea Gastrointestinal: Reports: No Symptoms, Other (Obese). Denies: Abdominal Pain, Constipation, Decreased Appetite, Diarrhea, Difficulty Swallowing, Flatus, Hematochezia, Melena, Nausea, Vomiting Genitourinary: Reports: No Symptoms. Denies: Dysuria, Frequency, Burning, Urgency, Incontinence, Hematuria, Retention, Flank Pain Musculoskeletal: Reports: No Symptoms. Denies: Neck Pain, Back Pain, Leg Pain, Joint Swelling Skin: Reports: No Symptoms. Denies: Diaphoresis, Bruising, Pruritis Neurological: Reports: Weakness (Stable chronic). Denies: Confusion, Dizziness , Headache, Numbness, Paresthesia, Syncope, Tingling, Difficulty Walking Psychiatric: Reports: No Symptoms. Denies: Confusion, Depression, Anxiety, Agitation, Hallucinations - Patient Data Vitals - Most Recent: Last Vital Signs Temp 35.8 C 12/29/18 08:00 Pulse 65 12/29/18 08:00 Resp 17 12/29/18 08:00 BP 103/76 12/29/18 08:00 Pulse Ox 93 L 12/29/18 08:00 Weight - Most Recent: 101.378 kg (Up 1 kg with previous 1.4 kg weight loss) I&O - Last 24 Hours: Intake & Output 12/29/18 12/30/18 12/30/18 22:59 06:59 14:59 Intake Total 960 420 Balance 960 420 Imaging Impressions - Last 24 Hours: None Lab Results Last 24 Hours: Blood work from 12/29/18 was reviewed with mildly elevated progressive MCV elevation, mild thrombocytopenia, mild hypomagnesemia, and mild hypoalbuminemia. Sandor Results Last 24 Hours: None Med Orders - Current: Current Medications Acetaminophen (Tylenol) 650 mg PO Q4H PRN PRN Reason: Pain Last Admin: 12/17/18 22:24 Dose: 650 mg Al Hydroxide/Mg Hydroxide (Mag-Al Plus) 30 ml PO Q4H PRN PRN Reason: Indigestion Albuterol/Ipratropium (Duoneb 3.0-0.5 Mg/3 Ml) 3 ml NEB BIDRT [facility] Last Admin: 12/30/18 07:41 Dose: 3 ml Albuterol/Ipratropium (Duoneb 3.0-0.5 Mg/3 Ml) 3 ml NEB Q4HRRT PRN PRN Reason: Dyspnea Last Admin: 12/29/18 00:16 Dose: 3 ml Bupropion HCl (Wellbutrin) 150 mg PO BEDTIME [facility] Last Admin: 12/29/18 19:21 Dose: 150 mg Calcium Carbonate/Glycine (Tums Extra Strength) 750 mg PO Q2HR PRN PRN Reason: Indigestion Last Admin: 08/19/18 06:17 Dose: 750 mg Cholecalciferol (Vitamin D3) [facility] Admin: 12/30/18 07:43 Dose: 1,000 units Citalopram Hydrobromide (Celexa) 20 mg PO QAM [facility] Last Admin: 12/30/18 07:41 Dose: 20 mg Clotrimazole (Lotrimin Af 1% Crm) 1 gm TOP BID PRN PRN Reason: Rash Last Admin: 07/18/18 08:50 Dose: 1 applic Cyanocobalamin (Vitamin B12) [facility]cg [facility] Last Admin: 12/30/18 07:43 Dose: 1,000 mcg Diphenhydramine HCl (Benadryl) 25 mg PO Q4H PRN PRN Reason: Itching Fludrocortisone Acetate (Florinef) 0.1 mg PO BEDTIME [facility] Last Admin: 12/29/18 19:21 Dose: 0.1 mg Fludrocortisone Acetate (Florinef) 0.[address] [facility] Last Admin: 12/30/18 07:41 Dose: 0.2 mg Furosemide (Lasix) 20 mg PO DAILY [facility] Last Admin: 12/30/18 07:41 Dose: 20 mg Guaifenesin/Dextromethorphan (Robitussin Dm) 10 ml PO Q4H PRN PRN Reason: Cough Last Admin: 12/29/18 00:27 Dose: 10 ml Ibuprofen (Motrin) 600 mg PO BID [facility] Last Admin: 12/30/18 07:41 Dose: 600 mg Ibuprofen (Motrin) 600 mg PO Q6H PRN PRN Reason: Breakthrough Pain Last Admin: 12/08/18 19:31 Dose: 600 mg Metoclopramide HCl (Reglan) 10 mg PO BIDAC [facility] Last Admin: 12/30/18 07:41 Dose: 10 mg Niacin (Niacin) 500 mg PO BID [facility] Last Admin: 12/30/18 07:42 Dose: 500 mg Levothyroxine Sodium (137 Mcg Tablets) 137 mcg PO BEDTIME [facility] Last Admin: 12/29/18 19:21 Dose: 137 mcg Potassium Chloride (Potassium Chloride Solution) 40 meq PO TID@08,,20 [facility] Last Admin: 12/30/18 13:13 Dose: 40 meq Simvastatin (Zocor) 10 mg PO BEDTIME [facility] Last Admin: 12/29/18 19:21 Dose: 10 mg Discontinued Medications Chlorhexidine Gluconate (Peridex 0.12% Rinse) 15 ml MUCMEM BID@ [facility] Last Admin: 05/12/18 08:41 Dose: 15 ml Diphenoxylate HCl/Atropine (Lomotil 0.025-2.5 Mg) 1 tab PO QID PRN PRN Reason: Diarrhea Last Admin: 02/09/18 09:50 Dose: 1 tab Furosemide (Lasix) 40 mg IM NOW ONE Stop: 12/10/17 11:52 Last Admin: 12/10/17 13:10 Dose: 40 mg Gentian Annita (Gentian Annita) 1 ml TOP DAILY PRN PRN Reason: Rash Stop: 07/28/18 20:00 Last Admin: 07/24/18 19:49 Dose: 1 applic Lactobacillus Rhamnosus (Culturelle) 2 cap PO BID [facility] Stop: 03/02/18 18:00 Last Admin: 03/02/18 17:10 Dose: 2 cap Metronidazole (Flagyl) 500 mg PO Q8H [facility] Stop: 02/26/18 14:01 Last Admin: 02/26/18 14:14 Dose: 500 mg Metronidazole (Flagyl) 500 mg PO TID [facility] Stop: 05/22/18 18:01 Last Admin: 05/22/18 17:55 Dose: Not Given Metronidazole (Flagyl) 500 mg PO Q8H [facility] Stop: 10/03/18 06:01 Last Admin: 10/03/18 06:02 Dose: 500 mg Cephalexin (Keflex) (500 Mg Capsules) 500 mg PO BID [facility] Last Admin: 03/11/18 07:56 Dose: 500 mg Fluconazole 150mg (Tablet) 1 each PO Q3D [facility] Stop: 12/06/17 20:01 Last Admin: 12/06/17 19:13 Dose: 1 each Nystatin (Mycostatin) 5 ml PO QID [facility] Stop: 05/19/18 16:01 Last Admin: 05/19/18 16:00 Dose: 5 ml Omeprazole (Omeprazole) 20 mg PO DAILY [facility] Last Admin: 03/11/18 07:55 Dose: 20 mg Potassium Chloride (Klor-Con M20) 20 meq PO ONETIME ONE Stop: 12/10/17 11:53 Last Admin: 12/10/17 13:10 Dose: 20 meq Potassium Chloride (Klor-Con M20) 20 meq PO DAILY [facility] Tramadol HCl (Ultram) 50 mg PO Q6H PRN PRN Reason: Pain (severe 7-10) Last Admin: 10/28/18 08:04 Dose: 50 mg - Exam Quality Assessment: Supplemental Oxygen, DVT Prophylaxis. No: Urine Catheter, Skin Breakdown, Restraints General: Alert, Oriented, Cooperative, No Acute Distress HEENT: Pupils Equal, Pupils Reactive, EOMI, Mucous Membr. Moist/Dierks Neck: Supple, Trachea Midline, No JVD, No Thyromegaly, +2 Carotid Pulse wo Bruit Lungs: Clear to Auscultation, Normal Respiratory Effort. No: Rub Cardiovascular: Regular Rate, Regular Rhythm, No Murmurs. No: Rubs GI/Abdominal Exam: Normal Bowel Sounds, Soft, Non-Tender, No Organomegaly, No Distention, No Abnormal Bruit, No Mass, Pelvis Stable, Other (Obese). No: Guarding (Female) Exam: Deferred Back Exam: Normal Inspection, Full Range of Motion. No: CVA Tenderness (L), CVA Tenderness (R), Muscle Spasm Extremities: Normal Inspection, Normal Range of Motion, Non-Tender, Normal Capillary Refill, Pedal Edema (Stable bilateral lymphedema of the lower extremities). No: Joint Swelling, Lurdes's Sign Peripheral Pulses: 2+: Radial (L), Radial (R), Dorsalis Pedis (L), Dorsalis Pedis (R) Skin: Warm, Dry, Intact. No: Ecchymosis Neurological: No New Focal Deficit, Other (No clinical orthostasis) Psy/Mental Status: Alert, Normal Affect, Normal Mood. No: Agitated, Hallucinations, Withdrawal Symptoms - Problem List & Annotations (1) Caries SNOMED Code(s): 15191951 Code(s): K02.9 - DENTAL CARIES, UNSPECIFIED Status: Acute Priority: Medium Current Visit: Yes Annotation/Comment:: Complete teeth extraction on 05/05/18 with no dental pain and the patient now currently having her complete dentures uppers and lowers. (2) Steinert myotonic dystrophy syndrome SNOMED Code(s): 08018080 Code(s): G71.11 - MYOTONIC MUSCULAR DYSTROPHY Status: Chronic Priority: Medium Current Visit: Yes Annotation/Comment:: Stable by history and today' s exam. Physical therapy in effect. Blood work from 12/29/18 reviewed as above. Yearly blood work, etc. due in April. (3) CHF, Congestive heart failure SNOMED Code(s): 69205727 Code(s): I50.9 - HEART FAILURE, UNSPECIFIED Status: Chronic Priority: Medium Current Visit: Yes Annotation/Comment:: Stable by clinical exam and history. Stable dependent edema since 12/10/17. Note weight gain use to be variable secondary to dietary noncompliance, however no direct evidence of significant weight gain or CHF as above. Note previous discontinuation of high protein Glucerna supplements as snacks. Note, however, dietary noncompliance is still an issue. Dietary consultation in effect. Continue to observe closely. No recent anginal complaints or current clinical evidence of CHF. Note previous history of PVCs, complete right bundle branch block/bifascicular bundle-branch block, first-degree AV block, severe dyslipidemia hypokalemia, hypophosphatemia , and hyponatremia. Continue to observe for now with no further change in medical therapy. (4) COPD (chronic obstructive pulmonary disease) SNOMED Code(s): 21078706 Code(s): J44.9 - CHRONIC OBSTRUCTIVE PULMONARY DISEASE, UNSPECIFIED Status : Chronic Priority: Medium Current Visit: Yes Qualifiers: COPD type: unspecified COPD Qualified Code(s): J44.9 - Chronic obstructive pulmonary disease, unspecified Annotation/Comment:: O2 dependent COPD stable by history with no bronchitic symptoms at this time. Continue current medical therapy. Patient does have a previous history of distant postoperative respiratory distress, although no complications after recent dental surgery. (5) Hyperglycemia SNOMED Code(s): 41328803 Code(s): R73.9 - HYPERGLYCEMIA, UNSPECIFIED Status: Chronic Priority: Medium Current Visit: Yes Onset Date: 06/29/15 Annotation/Comment:: Note persistent dietary noncompliance with variable weights as above. Dietary consultation is in effect as above. Blood work reviewed today as above with normal Glycosylated hemoglobin. (6) Hyperlipidemia SNOMED Code(s): 94027961 Code(s): E78.5 - HYPERLIPIDEMIA, UNSPECIFIED Status: Chronic Priority: Medium Current Visit: Yes Annotation/Comment:: Previous history of severe dyslipidemia with aggressive medical therapy at this time. Dietary compliance once again strongly encouraged. Repeat lipid panel on 04/29/18 was relatively stable. (7) Hypothyroidism SNOMED Code(s): 62492880 Code(s): E03.9 - HYPOTHYROIDISM, UNSPECIFIED Status: Chronic Priority: Medium Current Visit: Yes Annotation/Comment:: TSH normal on 04/29/18. No other thyroid type symptoms. (8) Mixed anxiety and depressive disorder SNOMED Code(s): 455135610 Code(s): F41.8 - OTHER SPECIFIED ANXIETY DISORDERS Status: Chronic Priority: Medium Current Visit: Yes Annotation/Comment:: Stable by history. Patient is still relatively active with physical therapy, social activities, etc.. Continue to observe closely by nursing staff with no significant depression at this time with patient often alone in her room. (9) Osteoarthritis SNOMED Code(s): 758751138 Code(s): M19.90 - UNSPECIFIED OSTEOARTHRITIS, UNSPECIFIED SITE Status: Chronic Priority: Medium Current Visit: Yes Annotation/Comment:: Mild occasional generalized arthralgias, however nonproblematic at this time with the patient rarely using Ultram. This medication will be discontinued at this time with more aggressive Tylenol use, if needed. Nursing staff is in agreement with this plan. PT in effect as above. Note status post bilateral ankle ORIF secondary to fractures. (10) UTI (urinary tract infection) SNOMED Code(s): 75243835 Code(s): N39.0 - URINARY TRACT INFECTION, SITE NOT SPECIFIED Status: Chronic Priority: Medium Current Visit: Yes Qualifiers: Hematuria presence: without hematuria Annotation/Comment:: No current UTI symptoms despite previous discontinuation of Keflex therapy for previous recurrent UTIs. Note subsequent recurrent C. difficile infection, which has since resolved by clinical exam. Continue to observe for now with no reinitiation of antibiotic therapy. (11) C. difficile colitis SNOMED Code(s): 108594783 Code(s): A04.72 - ENTEROCOLITIS D/T CLOSTRIDIUM DIFFICILE, NOT SPCF RECUR Status: Chronic Priority: Medium Current Visit: Yes Onset Date: Annotation/Comment:: No recent diarrhea, etc. Central laboratories previously refused repeat stool C. difficile analysis since the patient no longer has diarrhea and that this evaluation may remain positive for several months. This issue was brought up in medical staff for further review and discussion with no further follow-up at this time. In the meantime strict disinfection of patient's room, clothing, etc. Suspect that the patient may be a carrier. Continue to observe closely, however. (12) Gastroesophageal reflux disease SNOMED Code(s): 557419509 Code(s): K21.9 - GASTRO-ESOPHAGEAL REFLUX DISEASE WITHOUT ESOPHAGITIS Status: Acute Priority: Medium Current Visit: Yes Annotation/Comment:: Stable by history with no abdominal complaints and attempt to taper patient off of Prilosec. (13) Hypoalbuminemia SNOMED Code(s): 179867612 Code(s): E88.09 - OTH DISORDERS OF PLASMA-PROTEIN METABOLISM, NEC Status: Chronic Priority: Medium Current Visit: Yes Annotation/Comment:: Glucerna high-protein has been discontinued per recommendations from dietitian secondary to persistent weight gain. Continue high-protein diet as above. Observe for now. - Problem List Review Problem List Initiated/Reviewed/Updated: Yes - Assessment Assessment:: As above - Plan Plan:: As above. The patient is recertified for swing bed care for an additional 2 months. Yearly Blood work, etc. to be repeated in 4 months. Note that mammogram report from 11/05/18 was reviewed with stable findings and recommended repeat mammogram in 6 months. Extensive precautions were given to the patient, who is in agreement with the treatment plan.
[2018-12-30] MEDS: buPROPion 100 MG Tab PO SCH (19:21)
[2018-12-30] MEDS: Simvastatin 10 MG Tab PO SCH (19:22)
[2018-12-30] MEDS: LEVOTHYROXINE SODIUM 137 MCG PO SCH (19:22)
[2018-12-31] MEDS: Albuterol/Ipratropium 3.0-0.5 MG/3 ML Neb Soln NEB SCH ×2 (08:06→19:35)
[2018-12-31] MEDS: Citalopram 20 MG Tab PO SCH (08:06)
[2018-12-31] MEDS: Metoclopramide 10 MG Tab PO SCH ×2 (08:06→17:54)
[2018-12-31] MEDS: Ibuprofen 600 MG Tab PO SCH ×2 (08:06→17:54)
[2018-12-31] MEDS: Furosemide 20 MG Tab PO SCH (08:06)
[2018-12-31] MEDS: Fludrocortisone 0.1 MG Tab PO SCH ×2 (08:06→19:36)
[2018-12-31] MEDS: Niacin 500 MG Tab PO SCH ×2 (08:07→17:54)
[2018-12-31] MEDS: Cyanocobalamin (Vitamin B12) 1,000 MCG Tab PO SCH (08:07)
[2018-12-31] MEDS: Cholecalciferol (Vitamin D3) 25 MCG Tab PO SCH (08:08)
[2018-12-31] MEDS: Potassium Chloride 10% 20 MEQ/15 ML Soln 15 ML UD Cup PO SCH ×3 (08:08→19:37)
[2018-12-31] MEDS: LEVOTHYROXINE SODIUM 137 MCG PO SCH (19:36)
[2018-12-31] MEDS: buPROPion 100 MG Tab PO SCH (19:37)
[2018-12-31] MEDS: Simvastatin 10 MG Tab PO SCH (19:37)
[2019-01-01] MEDS: Metoclopramide 10 MG Tab PO SCH ×2 (07:57→18:03)
[2019-01-01] MEDS: Furosemide 20 MG Tab PO SCH (07:57)
[2019-01-01] MEDS: Citalopram 20 MG Tab PO SCH (07:57)
[2019-01-01] MEDS: Albuterol/Ipratropium 3.0-0.5 MG/3 ML Neb Soln NEB SCH ×2 (07:57→19:46)
[2019-01-01] MEDS: Fludrocortisone 0.1 MG Tab PO SCH ×2 (07:57→19:45)
[2019-01-01] MEDS: Potassium Chloride 10% 20 MEQ/15 ML Soln 15 ML UD Cup PO SCH ×3 (07:58→19:47)
[2019-01-01] MEDS: Ibuprofen 600 MG Tab PO SCH ×2 (07:58→18:03)
[2019-01-01] MEDS: Niacin 500 MG Tab PO SCH ×2 (07:58→18:04)
[2019-01-01] MEDS: Cholecalciferol (Vitamin D3) 25 MCG Tab PO SCH (07:59)
[2019-01-01] MEDS: Cyanocobalamin (Vitamin B12) 1,000 MCG Tab PO SCH (07:59)
[2019-01-01] MEDS: Acetaminophen 325 MG Tab PO PRN ×2 (10:55→23:58)
[2019-01-01] MEDS: LEVOTHYROXINE SODIUM 137 MCG PO SCH (19:46)
[2019-01-01] MEDS: buPROPion 100 MG Tab PO SCH (19:47)
[2019-01-01] MEDS: Simvastatin 10 MG Tab PO SCH (19:47)
[2019-01-02] MEDS: Citalopram 20 MG Tab PO SCH (07:56)
[2019-01-02] MEDS: Ibuprofen 600 MG Tab PO SCH ×2 (07:56→17:48)
[2019-01-02] MEDS: Fludrocortisone 0.1 MG Tab PO SCH ×2 (07:56→19:16)
[2019-01-02] MEDS: Furosemide 20 MG Tab PO SCH (07:56)
[2019-01-02] MEDS: Metoclopramide 10 MG Tab PO SCH ×2 (07:56→17:48)
[2019-01-02] MEDS: Albuterol/Ipratropium 3.0-0.5 MG/3 ML Neb Soln NEB SCH ×2 (07:57→19:16)
[2019-01-02] MEDS: Potassium Chloride 10% 20 MEQ/15 ML Soln 15 ML UD Cup PO SCH ×3 (07:57→19:17)
[2019-01-02] MEDS: Niacin 500 MG Tab PO SCH ×2 (07:57→17:48)
[2019-01-02] MEDS: Cyanocobalamin (Vitamin B12) 1,000 MCG Tab PO SCH (07:58)
[2019-01-02] MEDS: Cholecalciferol (Vitamin D3) 25 MCG Tab PO SCH (07:58)
[2019-01-02] MEDS: Simvastatin 10 MG Tab PO SCH (19:16)
[2019-01-02] MEDS: LEVOTHYROXINE SODIUM 137 MCG PO SCH (19:16)
[2019-01-02] MEDS: buPROPion 100 MG Tab PO SCH (19:16)
[2019-01-03] MEDS: Fludrocortisone 0.1 MG Tab PO SCH ×2 (08:04→19:11)
[2019-01-03] MEDS: Metoclopramide 10 MG Tab PO SCH ×2 (08:04→17:47)
[2019-01-03] MEDS: Citalopram 20 MG Tab PO SCH (08:04)
[2019-01-03] MEDS: Ibuprofen 600 MG Tab PO SCH ×2 (08:05→17:47)
[2019-01-03] MEDS: Furosemide 20 MG Tab PO SCH (08:05)
[2019-01-03] MEDS: Niacin 500 MG Tab PO SCH ×2 (08:06→17:46)
[2019-01-03] MEDS: Albuterol/Ipratropium 3.0-0.5 MG/3 ML Neb Soln NEB SCH ×2 (08:06→19:10)
[2019-01-03] MEDS: Cyanocobalamin (Vitamin B12) 1,000 MCG Tab PO SCH (08:06)
[2019-01-03] MEDS: Potassium Chloride 10% 20 MEQ/15 ML Soln 15 ML UD Cup PO SCH ×3 (08:07→19:12)
[2019-01-03] MEDS: Cholecalciferol (Vitamin D3) 25 MCG Tab PO SCH (08:07)
[2019-01-03] MEDS: buPROPion 100 MG Tab PO SCH (19:11)
[2019-01-03] MEDS: LEVOTHYROXINE SODIUM 137 MCG PO SCH (19:11)
[2019-01-03] MEDS: Simvastatin 10 MG Tab PO SCH (19:12)
[2019-01-04] MEDS: Fludrocortisone 0.1 MG Tab PO SCH ×2 (08:14→19:43)
[2019-01-04] MEDS: Metoclopramide 10 MG Tab PO SCH ×2 (08:14→17:52)
[2019-01-04] MEDS: Citalopram 20 MG Tab PO SCH (08:14)
[2019-01-04] MEDS: Furosemide 20 MG Tab PO SCH (08:15)
[2019-01-04] MEDS: Potassium Chloride 10% 20 MEQ/15 ML Soln 15 ML UD Cup PO SCH ×3 (08:15→19:44)
[2019-01-04] MEDS: Ibuprofen 600 MG Tab PO SCH ×2 (08:15→17:52)
[2019-01-04] MEDS: Cyanocobalamin (Vitamin B12) 1,000 MCG Tab PO SCH (08:16)
[2019-01-04] MEDS: Cholecalciferol (Vitamin D3) 25 MCG Tab PO SCH (08:16)
[2019-01-04] MEDS: Albuterol/Ipratropium 3.0-0.5 MG/3 ML Neb Soln NEB SCH ×2 (08:26→19:43)
[2019-01-04] MEDS: Niacin 500 MG Tab PO SCH ×2 (08:26→17:52)
[2019-01-04] MEDS: buPROPion 100 MG Tab PO SCH (19:44)
[2019-01-04] MEDS: LEVOTHYROXINE SODIUM 137 MCG PO SCH (19:44)
[2019-01-04] MEDS: Simvastatin 10 MG Tab PO SCH (19:44)
[2019-01-05] MEDS: Metoclopramide 10 MG Tab PO SCH ×2 (08:16→18:02)
[2019-01-05] MEDS: Fludrocortisone 0.1 MG Tab PO SCH ×2 (08:16→19:39)
[2019-01-05] MEDS: Citalopram 20 MG Tab PO SCH (08:16)
[2019-01-05] MEDS: Furosemide 20 MG Tab PO SCH (08:16)
[2019-01-05] MEDS: Ibuprofen 600 MG Tab PO SCH ×2 (08:16→18:02)
[2019-01-05] MEDS: Albuterol/Ipratropium 3.0-0.5 MG/3 ML Neb Soln NEB SCH ×2 (08:17→19:39)
[2019-01-05] MEDS: Potassium Chloride 10% 20 MEQ/15 ML Soln 15 ML UD Cup PO SCH ×3 (08:18→19:40)
[2019-01-05] MEDS: Cholecalciferol (Vitamin D3) 25 MCG Tab PO SCH (08:18)
[2019-01-05] MEDS: Niacin 500 MG Tab PO SCH ×2 (08:18→18:02)
[2019-01-05] MEDS: Cyanocobalamin (Vitamin B12) 1,000 MCG Tab PO SCH (08:18)
[2019-01-05] MEDS: LEVOTHYROXINE SODIUM 137 MCG PO SCH (19:39)
[2019-01-05] MEDS: buPROPion 100 MG Tab PO SCH (19:40)
[2019-01-05] MEDS: Simvastatin 10 MG Tab PO SCH (19:41)
[2019-01-06] MEDS: Metoclopramide 10 MG Tab PO SCH ×2 (08:24→17:58)
[2019-01-06] MEDS: Citalopram 20 MG Tab PO SCH (08:25)
[2019-01-06] MEDS: Furosemide 20 MG Tab PO SCH (08:25)
[2019-01-06] MEDS: Niacin 500 MG Tab PO SCH ×2 (08:25→17:58)
[2019-01-06] MEDS: Fludrocortisone 0.1 MG Tab PO SCH ×2 (08:25→19:17)
[2019-01-06] MEDS: Ibuprofen 600 MG Tab PO SCH ×2 (08:25→17:58)
[2019-01-06] MEDS: Potassium Chloride 10% 20 MEQ/15 ML Soln 15 ML UD Cup PO SCH ×3 (08:26→19:18)
[2019-01-06] MEDS: Cyanocobalamin (Vitamin B12) 1,000 MCG Tab PO SCH (08:27)
[2019-01-06] MEDS: Cholecalciferol (Vitamin D3) 25 MCG Tab PO SCH (08:27)
[2019-01-06] MEDS: Albuterol/Ipratropium 3.0-0.5 MG/3 ML Neb Soln NEB SCH ×2 (08:28→19:16)
[2019-01-06] MEDS: buPROPion 100 MG Tab PO SCH (19:17)
[2019-01-06] MEDS: LEVOTHYROXINE SODIUM 137 MCG PO SCH (19:17)
[2019-01-06] MEDS: Simvastatin 10 MG Tab PO SCH (19:18)
[2019-01-07] MEDS: Potassium Chloride 10% 20 MEQ/15 ML Soln 15 ML UD Cup PO SCH ×3 (08:06→19:10)
[2019-01-07] MEDS: Metoclopramide 10 MG Tab PO SCH ×2 (08:06→17:09)
[2019-01-07] MEDS: Fludrocortisone 0.1 MG Tab PO SCH ×2 (08:07→19:09)
[2019-01-07] MEDS: Furosemide 20 MG Tab PO SCH (08:07)
[2019-01-07] MEDS: Citalopram 20 MG Tab PO SCH (08:07)
[2019-01-07] MEDS: Albuterol/Ipratropium 3.0-0.5 MG/3 ML Neb Soln NEB SCH ×2 (08:07→19:09)
[2019-01-07] MEDS: Ibuprofen 600 MG Tab PO SCH ×2 (08:07→17:09)
[2019-01-07] MEDS: Cyanocobalamin (Vitamin B12) 1,000 MCG Tab PO SCH (08:08)
[2019-01-07] MEDS: Niacin 500 MG Tab PO SCH ×2 (08:08→17:10)
[2019-01-07] MEDS: Cholecalciferol (Vitamin D3) 25 MCG Tab PO SCH (08:08)
[2019-01-07] MEDS: Simvastatin 10 MG Tab PO SCH (19:10)
[2019-01-07] MEDS: buPROPion 100 MG Tab PO SCH (19:10)
[2019-01-07] MEDS: LEVOTHYROXINE SODIUM 137 MCG PO SCH (19:10)
[2019-01-08] MEDS: Metoclopramide 10 MG Tab PO SCH ×2 (07:17→17:18)
[2019-01-08] MEDS: Potassium Chloride 10% 20 MEQ/15 ML Soln 15 ML UD Cup PO SCH ×3 (07:17→19:35)
[2019-01-08] MEDS: Citalopram 20 MG Tab PO SCH (07:17)
[2019-01-08] MEDS: Furosemide 20 MG Tab PO SCH (07:18)
[2019-01-08] MEDS: Ibuprofen 600 MG Tab PO SCH ×2 (07:18→17:18)
[2019-01-08] MEDS: Albuterol/Ipratropium 3.0-0.5 MG/3 ML Neb Soln NEB SCH ×2 (07:18→19:34)
[2019-01-08] MEDS: Fludrocortisone 0.1 MG Tab PO SCH ×2 (07:18→19:33)
[2019-01-08] MEDS: Cholecalciferol (Vitamin D3) 25 MCG Tab PO SCH (07:19)
[2019-01-08] MEDS: Niacin 500 MG Tab PO SCH ×2 (07:19→17:18)
[2019-01-08] MEDS: Cyanocobalamin (Vitamin B12) 1,000 MCG Tab PO SCH (07:19)
[2019-01-08] MEDS: LEVOTHYROXINE SODIUM 137 MCG PO SCH (19:33)
[2019-01-08] MEDS: buPROPion 100 MG Tab PO SCH (19:35)
[2019-01-08] MEDS: Simvastatin 10 MG Tab PO SCH (19:36)
[2019-01-09] MEDS: Potassium Chloride 10% 20 MEQ/15 ML Soln 15 ML UD Cup PO SCH ×3 (07:27→19:31)
[2019-01-09] MEDS: Metoclopramide 10 MG Tab PO SCH ×2 (07:28→17:06)
[2019-01-09] MEDS: Citalopram 20 MG Tab PO SCH (07:28)
[2019-01-09] MEDS: Albuterol/Ipratropium 3.0-0.5 MG/3 ML Neb Soln NEB SCH ×2 (07:28→19:30)
[2019-01-09] MEDS: Ibuprofen 600 MG Tab PO SCH ×2 (07:29→17:06)
[2019-01-09] MEDS: Fludrocortisone 0.1 MG Tab PO SCH ×2 (07:29→19:30)
[2019-01-09] MEDS: Furosemide 20 MG Tab PO SCH (07:29)
[2019-01-09] MEDS: Cyanocobalamin (Vitamin B12) 1,000 MCG Tab PO SCH (07:30)
[2019-01-09] MEDS: Cholecalciferol (Vitamin D3) 25 MCG Tab PO SCH (07:30)
[2019-01-09] MEDS: Niacin 500 MG Tab PO SCH ×2 (07:30→17:06)
[2019-01-09] MEDS: buPROPion 100 MG Tab PO SCH (19:31)
[2019-01-09] MEDS: Simvastatin 10 MG Tab PO SCH (19:31)
[2019-01-09] MEDS: LEVOTHYROXINE SODIUM 137 MCG PO SCH (19:31)
[2019-01-10] MEDS: Albuterol/Ipratropium 3.0-0.5 MG/3 ML Neb Soln NEB SCH ×2 (07:28→19:35)
[2019-01-10] MEDS: Fludrocortisone 0.1 MG Tab PO SCH ×2 (07:29→19:35)
[2019-01-10] MEDS: Citalopram 20 MG Tab PO SCH (07:29)
[2019-01-10] MEDS: Metoclopramide 10 MG Tab PO SCH ×2 (07:29→17:12)
[2019-01-10] MEDS: Potassium Chloride 10% 20 MEQ/15 ML Soln 15 ML UD Cup PO SCH ×3 (07:30→19:36)
[2019-01-10] MEDS: Niacin 500 MG Tab PO SCH ×2 (07:30→17:13)
[2019-01-10] MEDS: Furosemide 20 MG Tab PO SCH (07:30)
[2019-01-10] MEDS: Ibuprofen 600 MG Tab PO SCH ×2 (07:30→17:12)
[2019-01-10] MEDS: Cyanocobalamin (Vitamin B12) 1,000 MCG Tab PO SCH (07:31)
[2019-01-10] MEDS: Cholecalciferol (Vitamin D3) 25 MCG Tab PO SCH (07:31)
[2019-01-10] MEDS: buPROPion 100 MG Tab PO SCH (19:35)
[2019-01-10] MEDS: LEVOTHYROXINE SODIUM 137 MCG PO SCH (19:35)
[2019-01-10] MEDS: Simvastatin 10 MG Tab PO SCH (19:36)
[2019-01-11] MEDS: Fludrocortisone 0.1 MG Tab PO SCH ×2 (07:52→19:13)
[2019-01-11] MEDS: Citalopram 20 MG Tab PO SCH (07:52)
[2019-01-11] MEDS: Metoclopramide 10 MG Tab PO SCH ×2 (07:52→17:44)
[2019-01-11] MEDS: Ibuprofen 600 MG Tab PO SCH ×2 (07:53→17:44)
[2019-01-11] MEDS: Albuterol/Ipratropium 3.0-0.5 MG/3 ML Neb Soln NEB SCH ×2 (07:53→19:13)
[2019-01-11] MEDS: Furosemide 20 MG Tab PO SCH (07:53)
[2019-01-11] MEDS: Niacin 500 MG Tab PO SCH ×2 (07:54→17:44)
[2019-01-11] MEDS: Potassium Chloride 10% 20 MEQ/15 ML Soln 15 ML UD Cup PO SCH ×3 (07:54→19:14)
[2019-01-11] MEDS: Cyanocobalamin (Vitamin B12) 1,000 MCG Tab PO SCH (07:55)
[2019-01-11] MEDS: Cholecalciferol (Vitamin D3) 25 MCG Tab PO SCH (07:55)
[2019-01-11] MEDS: LEVOTHYROXINE SODIUM 137 MCG PO SCH (19:13)
[2019-01-11] MEDS: buPROPion 100 MG Tab PO SCH (19:14)
[2019-01-11] MEDS: Simvastatin 10 MG Tab PO SCH (19:14)
[2019-01-12] MEDS: Metoclopramide 10 MG Tab PO SCH ×2 (08:13→17:57)
[2019-01-12] MEDS: Citalopram 20 MG Tab PO SCH (08:13)
[2019-01-12] MEDS: Ibuprofen 600 MG Tab PO SCH ×2 (08:14→17:57)
[2019-01-12] MEDS: Furosemide 20 MG Tab PO SCH (08:14)
[2019-01-12] MEDS: Fludrocortisone 0.1 MG Tab PO SCH ×2 (08:14→19:43)
[2019-01-12] MEDS: Albuterol/Ipratropium 3.0-0.5 MG/3 ML Neb Soln NEB SCH ×2 (08:14→19:42)
[2019-01-12] MEDS: Cholecalciferol (Vitamin D3) 25 MCG Tab PO SCH (08:15)
[2019-01-12] MEDS: Niacin 500 MG Tab PO SCH ×2 (08:15→17:57)
[2019-01-12] MEDS: Cyanocobalamin (Vitamin B12) 1,000 MCG Tab PO SCH (08:15)
[2019-01-12] MEDS: Potassium Chloride 10% 20 MEQ/15 ML Soln 15 ML UD Cup PO SCH ×3 (08:16→19:44)
[2019-01-12] MEDS: buPROPion 100 MG Tab PO SCH (19:43)
[2019-01-12] MEDS: Simvastatin 10 MG Tab PO SCH (19:43)
[2019-01-12] MEDS: LEVOTHYROXINE SODIUM 137 MCG PO SCH (19:43)
[2019-01-13] MEDS: Albuterol/Ipratropium 3.0-0.5 MG/3 ML Neb Soln NEB SCH ×2 (08:09→19:27)
[2019-01-13] MEDS: Ibuprofen 600 MG Tab PO SCH ×2 (08:10→17:43)
[2019-01-13] MEDS: Furosemide 20 MG Tab PO SCH (08:10)
[2019-01-13] MEDS: Citalopram 20 MG Tab PO SCH (08:11)
[2019-01-13] MEDS: Niacin 500 MG Tab PO SCH ×2 (08:11→17:43)
[2019-01-13] MEDS: Fludrocortisone 0.1 MG Tab PO SCH ×2 (08:11→19:27)
[2019-01-13] MEDS: Metoclopramide 10 MG Tab PO SCH ×2 (08:11→17:43)
[2019-01-13] MEDS: Cholecalciferol (Vitamin D3) 25 MCG Tab PO SCH (08:12)
[2019-01-13] MEDS: Cyanocobalamin (Vitamin B12) 1,000 MCG Tab PO SCH (08:12)
[2019-01-13] MEDS: Potassium Chloride 10% 20 MEQ/15 ML Soln 15 ML UD Cup PO SCH ×3 (08:13→19:27)
[2019-01-13] MEDS: LEVOTHYROXINE SODIUM 137 MCG PO SCH (19:27)
[2019-01-13] MEDS: Simvastatin 10 MG Tab PO SCH (19:28)
[2019-01-13] MEDS: buPROPion 100 MG Tab PO SCH (19:28)
[2019-01-14] MEDS: Metoclopramide 10 MG Tab PO SCH ×2 (08:02→17:55)
[2019-01-14] MEDS: Ibuprofen 600 MG Tab PO SCH ×2 (08:03→17:56)
[2019-01-14] MEDS: Citalopram 20 MG Tab PO SCH (08:03)
[2019-01-14] MEDS: Furosemide 20 MG Tab PO SCH (08:03)
[2019-01-14] MEDS: Fludrocortisone 0.1 MG Tab PO SCH ×2 (08:03→19:21)
[2019-01-14] MEDS: Cyanocobalamin (Vitamin B12) 1,000 MCG Tab PO SCH (08:04)
[2019-01-14] MEDS: Cholecalciferol (Vitamin D3) 25 MCG Tab PO SCH (08:04)
[2019-01-14] MEDS: Albuterol/Ipratropium 3.0-0.5 MG/3 ML Neb Soln NEB SCH ×2 (08:04→19:21)
[2019-01-14] MEDS: Niacin 500 MG Tab PO SCH ×2 (08:04→17:56)
[2019-01-14] MEDS: Potassium Chloride 10% 20 MEQ/15 ML Soln 15 ML UD Cup PO SCH ×3 (08:05→19:22)
[2019-01-14] MEDS: buPROPion 100 MG Tab PO SCH (19:22)
[2019-01-14] MEDS: LEVOTHYROXINE SODIUM 137 MCG PO SCH (19:22)
[2019-01-14] MEDS: Simvastatin 10 MG Tab PO SCH (19:22)
[2019-01-15] MEDS: Albuterol/Ipratropium 3.0-0.5 MG/3 ML Neb Soln NEB SCH ×2 (07:30→19:07)
[2019-01-15] MEDS: Citalopram 20 MG Tab PO SCH (07:31)
[2019-01-15] MEDS: Ibuprofen 600 MG Tab PO SCH ×2 (07:31→17:08)
[2019-01-15] MEDS: Furosemide 20 MG Tab PO SCH (07:31)
[2019-01-15] MEDS: Metoclopramide 10 MG Tab PO SCH ×2 (07:31→17:08)
[2019-01-15] MEDS: Fludrocortisone 0.1 MG Tab PO SCH ×2 (07:31→19:07)
[2019-01-15] MEDS: Cyanocobalamin (Vitamin B12) 1,000 MCG Tab PO SCH (07:32)
[2019-01-15] MEDS: Potassium Chloride 10% 20 MEQ/15 ML Soln 15 ML UD Cup PO SCH ×3 (07:32→19:10)
[2019-01-15] MEDS: Niacin 500 MG Tab PO SCH ×2 (07:32→17:09)
[2019-01-15] MEDS: Cholecalciferol (Vitamin D3) 25 MCG Tab PO SCH (07:33)
[2019-01-15] MEDS: Simvastatin 10 MG Tab PO SCH (19:08)
[2019-01-15] MEDS: LEVOTHYROXINE SODIUM 137 MCG PO SCH (19:08)
[2019-01-15] MEDS: buPROPion 100 MG Tab PO SCH (19:08)
[2019-01-16] MEDS: Citalopram 20 MG Tab PO SCH (08:03)
[2019-01-16] MEDS: Furosemide 20 MG Tab PO SCH (08:03)
[2019-01-16] MEDS: Fludrocortisone 0.1 MG Tab PO SCH ×2 (08:03→19:07)
[2019-01-16] MEDS: Ibuprofen 600 MG Tab PO SCH ×2 (08:03→17:46)
[2019-01-16] MEDS: Metoclopramide 10 MG Tab PO SCH ×2 (08:04→17:46)
[2019-01-16] MEDS: Potassium Chloride 10% 20 MEQ/15 ML Soln 15 ML UD Cup PO SCH ×3 (08:05→19:08)
[2019-01-16] MEDS: Cholecalciferol (Vitamin D3) 25 MCG Tab PO SCH (08:05)
[2019-01-16] MEDS: Cyanocobalamin (Vitamin B12) 1,000 MCG Tab PO SCH (08:05)
[2019-01-16] MEDS: Albuterol/Ipratropium 3.0-0.5 MG/3 ML Neb Soln NEB SCH ×2 (08:05→19:07)
[2019-01-16] MEDS: Niacin 500 MG Tab PO SCH ×2 (08:05→17:47)
[2019-01-16] MEDS: buPROPion 100 MG Tab PO SCH (19:07)
[2019-01-16] MEDS: Simvastatin 10 MG Tab PO SCH (19:07)
[2019-01-16] MEDS: LEVOTHYROXINE SODIUM 137 MCG PO SCH (19:07)
[2019-01-17] MEDS: Furosemide 20 MG Tab PO SCH (07:50)
[2019-01-17] MEDS: Fludrocortisone 0.1 MG Tab PO SCH ×2 (07:51→19:05)
[2019-01-17] MEDS: Metoclopramide 10 MG Tab PO SCH ×2 (07:51→17:47)
[2019-01-17] MEDS: Albuterol/Ipratropium 3.0-0.5 MG/3 ML Neb Soln NEB SCH ×2 (07:51→19:05)
[2019-01-17] MEDS: Ibuprofen 600 MG Tab PO SCH ×2 (07:51→17:47)
[2019-01-17] MEDS: Citalopram 20 MG Tab PO SCH (07:51)
[2019-01-17] MEDS: Cholecalciferol (Vitamin D3) 25 MCG Tab PO SCH (07:52)
[2019-01-17] MEDS: Cyanocobalamin (Vitamin B12) 1,000 MCG Tab PO SCH (07:52)
[2019-01-17] MEDS: Niacin 500 MG Tab PO SCH ×2 (07:52→17:47)
[2019-01-17] MEDS: Potassium Chloride 10% 20 MEQ/15 ML Soln 15 ML UD Cup PO SCH ×3 (07:53→19:04)
[2019-01-17] MEDS: Acetaminophen 325 MG Tab PO PRN (15:17)
[2019-01-17] MEDS: LEVOTHYROXINE SODIUM 137 MCG PO SCH (19:05)
[2019-01-17] MEDS: buPROPion 100 MG Tab PO SCH (19:05)
[2019-01-17] MEDS: Simvastatin 10 MG Tab PO SCH (19:05)
[2019-01-18] MEDS: Furosemide 20 MG Tab PO SCH (07:57)
[2019-01-18] MEDS: Metoclopramide 10 MG Tab PO SCH ×2 (07:58→17:53)
[2019-01-18] MEDS: Fludrocortisone 0.1 MG Tab PO SCH ×2 (07:58→19:18)
[2019-01-18] MEDS: Citalopram 20 MG Tab PO SCH (07:58)
[2019-01-18] MEDS: Ibuprofen 600 MG Tab PO SCH ×2 (07:58→17:53)
[2019-01-18] MEDS: Albuterol/Ipratropium 3.0-0.5 MG/3 ML Neb Soln NEB SCH ×2 (07:59→19:17)
[2019-01-18] MEDS: Niacin 500 MG Tab PO SCH ×2 (07:59→17:54)
[2019-01-18] MEDS: Potassium Chloride 10% 20 MEQ/15 ML Soln 15 ML UD Cup PO SCH ×3 (08:00→19:19)
[2019-01-18] MEDS: Cyanocobalamin (Vitamin B12) 1,000 MCG Tab PO SCH (08:01)
[2019-01-18] MEDS: Cholecalciferol (Vitamin D3) 25 MCG Tab PO SCH (08:01)
[2019-01-18] MEDS: Acetaminophen 325 MG Tab PO PRN (16:42)
[2019-01-18] MEDS: LEVOTHYROXINE SODIUM 137 MCG PO SCH (19:18)
[2019-01-18] MEDS: Simvastatin 10 MG Tab PO SCH (19:19)
[2019-01-18] MEDS: buPROPion 100 MG Tab PO SCH (19:19)
[2019-01-19] MEDS: Potassium Chloride 10% 20 MEQ/15 ML Soln 15 ML UD Cup PO SCH ×3 (07:33→19:20)
[2019-01-19] MEDS: Citalopram 20 MG Tab PO SCH (07:33)
[2019-01-19] MEDS: Metoclopramide 10 MG Tab PO SCH ×2 (07:33→17:21)
[2019-01-19] MEDS: Fludrocortisone 0.1 MG Tab PO SCH ×2 (07:34→19:19)
[2019-01-19] MEDS: Ibuprofen 600 MG Tab PO SCH ×2 (07:34→17:21)
[2019-01-19] MEDS: Albuterol/Ipratropium 3.0-0.5 MG/3 ML Neb Soln NEB SCH ×2 (07:34→19:19)
[2019-01-19] MEDS: Furosemide 20 MG Tab PO SCH (07:34)
[2019-01-19] MEDS: Niacin 500 MG Tab PO SCH ×2 (07:35→17:21)
[2019-01-19] MEDS: Cyanocobalamin (Vitamin B12) 1,000 MCG Tab PO SCH (07:35)
[2019-01-19] MEDS: Cholecalciferol (Vitamin D3) 25 MCG Tab PO SCH (07:35)
[2019-01-19] MEDS: LEVOTHYROXINE SODIUM 137 MCG PO SCH (19:20)
[2019-01-19] MEDS: buPROPion 100 MG Tab PO SCH (19:21)
[2019-01-19] MEDS: Simvastatin 10 MG Tab PO SCH (19:21)
[2019-01-20] MEDS: Albuterol/Ipratropium 3.0-0.5 MG/3 ML Neb Soln NEB SCH ×2 (07:34→18:59)
[2019-01-20] MEDS: Fludrocortisone 0.1 MG Tab PO SCH ×2 (07:35→19:00)
[2019-01-20] MEDS: Metoclopramide 10 MG Tab PO SCH ×2 (07:35→17:04)
[2019-01-20] MEDS: Furosemide 20 MG Tab PO SCH (07:35)
[2019-01-20] MEDS: Citalopram 20 MG Tab PO SCH (07:35)
[2019-01-20] MEDS: Niacin 500 MG Tab PO SCH ×2 (07:36→17:05)
[2019-01-20] MEDS: Ibuprofen 600 MG Tab PO SCH ×2 (07:36→17:04)
[2019-01-20] MEDS: Potassium Chloride 10% 20 MEQ/15 ML Soln 15 ML UD Cup PO SCH ×3 (07:36→19:00)
[2019-01-20] MEDS: Cholecalciferol (Vitamin D3) 25 MCG Tab PO SCH (07:37)
[2019-01-20] MEDS: Cyanocobalamin (Vitamin B12) 1,000 MCG Tab PO SCH (07:37)
[2019-01-20] MEDS: LEVOTHYROXINE SODIUM 137 MCG PO SCH (19:00)
[2019-01-20] MEDS: Simvastatin 10 MG Tab PO SCH (19:00)
[2019-01-20] MEDS: buPROPion 100 MG Tab PO SCH (19:00)
[2019-01-21] MEDS: Metoclopramide 10 MG Tab PO SCH ×2 (07:34→17:00)
[2019-01-21] MEDS: Furosemide 20 MG Tab PO SCH (07:34)
[2019-01-21] MEDS: Citalopram 20 MG Tab PO SCH (07:34)
[2019-01-21] MEDS: Albuterol/Ipratropium 3.0-0.5 MG/3 ML Neb Soln NEB SCH ×2 (07:34→19:32)
[2019-01-21] MEDS: Fludrocortisone 0.1 MG Tab PO SCH ×2 (07:34→19:34)
[2019-01-21] MEDS: Niacin 500 MG Tab PO SCH ×2 (07:35→17:01)
[2019-01-21] MEDS: Ibuprofen 600 MG Tab PO SCH ×2 (07:35→17:01)
[2019-01-21] MEDS: Cholecalciferol (Vitamin D3) 25 MCG Tab PO SCH (07:36)
[2019-01-21] MEDS: Potassium Chloride 10% 20 MEQ/15 ML Soln 15 ML UD Cup PO SCH ×3 (07:36→19:35)
[2019-01-21] MEDS: Cyanocobalamin (Vitamin B12) 1,000 MCG Tab PO SCH (07:36)
[2019-01-21] MEDS: LEVOTHYROXINE SODIUM 137 MCG PO SCH (19:34)
[2019-01-21] MEDS: buPROPion 100 MG Tab PO SCH (19:35)
[2019-01-21] MEDS: Simvastatin 10 MG Tab PO SCH (19:35)
[2019-01-22] MEDS: Metoclopramide 10 MG Tab PO SCH ×2 (07:43→17:40)
[2019-01-22] MEDS: Ibuprofen 600 MG Tab PO SCH ×2 (07:44→17:40)
[2019-01-22] MEDS: Furosemide 20 MG Tab PO SCH (07:44)
[2019-01-22] MEDS: Citalopram 20 MG Tab PO SCH (07:44)
[2019-01-22] MEDS: Fludrocortisone 0.1 MG Tab PO SCH ×2 (07:44→19:27)
[2019-01-22] MEDS: Albuterol/Ipratropium 3.0-0.5 MG/3 ML Neb Soln NEB SCH ×2 (07:45→19:26)
[2019-01-22] MEDS: Cyanocobalamin (Vitamin B12) 1,000 MCG Tab PO SCH (07:46)
[2019-01-22] MEDS: Niacin 500 MG Tab PO SCH ×2 (07:46→17:40)
[2019-01-22] MEDS: Potassium Chloride 10% 20 MEQ/15 ML Soln 15 ML UD Cup PO SCH ×3 (07:47→19:28)
[2019-01-22] MEDS: Cholecalciferol (Vitamin D3) 25 MCG Tab PO SCH (07:47)
[2019-01-22] MEDS: LEVOTHYROXINE SODIUM 137 MCG PO SCH (19:27)
[2019-01-22] MEDS: Simvastatin 10 MG Tab PO SCH (19:27)
[2019-01-22] MEDS: buPROPion 100 MG Tab PO SCH (19:27)
[2019-01-23] MEDS: Albuterol/Ipratropium 3.0-0.5 MG/3 ML Neb Soln NEB SCH ×2 (07:31→19:17)
[2019-01-23] MEDS: Metoclopramide 10 MG Tab PO SCH ×2 (07:32→17:55)
[2019-01-23] MEDS: Fludrocortisone 0.1 MG Tab PO SCH ×2 (07:32→19:20)
[2019-01-23] MEDS: Citalopram 20 MG Tab PO SCH (07:32)
[2019-01-23] MEDS: Ibuprofen 600 MG Tab PO SCH ×2 (07:33→17:54)
[2019-01-23] MEDS: Furosemide 20 MG Tab PO SCH (07:33)
[2019-01-23] MEDS: Potassium Chloride 10% 20 MEQ/15 ML Soln 15 ML UD Cup PO SCH ×3 (08:42→19:21)
[2019-01-23] MEDS: Niacin 500 MG Tab PO SCH ×2 (08:46→17:54)
[2019-01-23] MEDS: Cyanocobalamin (Vitamin B12) 1,000 MCG Tab PO SCH (08:46)
[2019-01-23] MEDS: Cholecalciferol (Vitamin D3) 25 MCG Tab PO SCH (08:46)
[2019-01-23] MEDS: Simvastatin 10 MG Tab PO SCH (19:20)
[2019-01-23] MEDS: buPROPion 100 MG Tab PO SCH (19:20)
[2019-01-23] MEDS: LEVOTHYROXINE SODIUM 137 MCG PO SCH (19:20)
[2019-01-24] MEDS: Metoclopramide 10 MG Tab PO SCH ×2 (09:56→17:58)
[2019-01-24] MEDS: Niacin 500 MG Tab PO SCH ×2 (09:56→17:58)
[2019-01-24] MEDS: Ibuprofen 600 MG Tab PO SCH ×2 (09:56→17:58)
[2019-01-24] MEDS: Potassium Chloride 10% 20 MEQ/15 ML Soln 15 ML UD Cup PO SCH ×3 (09:56→19:13)
[2019-01-24] MEDS: Albuterol/Ipratropium 3.0-0.5 MG/3 ML Neb Soln NEB SCH ×2 (09:56→19:12)
[2019-01-24] MEDS: Furosemide 20 MG Tab PO SCH (09:56)
[2019-01-24] MEDS: Fludrocortisone 0.1 MG Tab PO SCH ×2 (09:56→19:12)
[2019-01-24] MEDS: Citalopram 20 MG Tab PO SCH (09:56)
[2019-01-24] MEDS: Cyanocobalamin (Vitamin B12) 1,000 MCG Tab PO SCH (09:57)
[2019-01-24] MEDS: Cholecalciferol (Vitamin D3) 25 MCG Tab PO SCH (09:57)
[2019-01-24] MEDS: LEVOTHYROXINE SODIUM 137 MCG PO SCH (19:12)
[2019-01-24] MEDS: Simvastatin 10 MG Tab PO SCH (19:13)
[2019-01-24] MEDS: buPROPion 100 MG Tab PO SCH (19:13)
[2019-01-25] MEDS: Metoclopramide 10 MG Tab PO SCH ×2 (07:47→17:10)
[2019-01-25] MEDS: Citalopram 20 MG Tab PO SCH (07:48)
[2019-01-25] MEDS: Ibuprofen 600 MG Tab PO SCH ×2 (07:48→17:10)
[2019-01-25] MEDS: Albuterol/Ipratropium 3.0-0.5 MG/3 ML Neb Soln NEB SCH ×2 (07:48→19:12)
[2019-01-25] MEDS: Furosemide 20 MG Tab PO SCH (07:48)
[2019-01-25] MEDS: Fludrocortisone 0.1 MG Tab PO SCH ×2 (07:48→19:13)
[2019-01-25] MEDS: Potassium Chloride 10% 20 MEQ/15 ML Soln 15 ML UD Cup PO SCH ×3 (07:49→19:13)
[2019-01-25] MEDS: Cholecalciferol (Vitamin D3) 25 MCG Tab PO SCH (07:49)
[2019-01-25] MEDS: Cyanocobalamin (Vitamin B12) 1,000 MCG Tab PO SCH (07:49)
[2019-01-25] MEDS: Niacin 500 MG Tab PO SCH ×2 (09:20→17:11)
[2019-01-25] MEDS: LEVOTHYROXINE SODIUM 137 MCG PO SCH (19:12)
[2019-01-25] MEDS: Simvastatin 10 MG Tab PO SCH (19:12)
[2019-01-25] MEDS: buPROPion 100 MG Tab PO SCH (19:12)
[2019-01-26] MEDS: Fludrocortisone 0.1 MG Tab PO SCH ×2 (07:58→19:29)
[2019-01-26] MEDS: Furosemide 20 MG Tab PO SCH (07:58)
[2019-01-26] MEDS: Metoclopramide 10 MG Tab PO SCH ×2 (07:58→18:08)
[2019-01-26] MEDS: Citalopram 20 MG Tab PO SCH (07:58)
[2019-01-26] MEDS: Albuterol/Ipratropium 3.0-0.5 MG/3 ML Neb Soln NEB SCH ×2 (07:58→19:28)
[2019-01-26] MEDS: Niacin 500 MG Tab PO SCH ×2 (07:59→18:08)
[2019-01-26] MEDS: Ibuprofen 600 MG Tab PO SCH ×2 (07:59→18:08)
[2019-01-26] MEDS: Cholecalciferol (Vitamin D3) 25 MCG Tab PO SCH (08:00)
[2019-01-26] MEDS: Cyanocobalamin (Vitamin B12) 1,000 MCG Tab PO SCH (08:00)
[2019-01-26] MEDS: Potassium Chloride 10% 20 MEQ/15 ML Soln 15 ML UD Cup PO SCH ×3 (08:01→19:29)
[2019-01-26] MEDS: LEVOTHYROXINE SODIUM 137 MCG PO SCH (19:29)
[2019-01-26] MEDS: buPROPion 100 MG Tab PO SCH (19:30)
[2019-01-26] MEDS: Simvastatin 10 MG Tab PO SCH (19:30)
[2019-01-27] MEDS: Albuterol/Ipratropium 3.0-0.5 MG/3 ML Neb Soln NEB SCH ×2 (07:26→19:31)
[2019-01-27] MEDS: Citalopram 20 MG Tab PO SCH (07:27)
[2019-01-27] MEDS: Metoclopramide 10 MG Tab PO SCH ×2 (07:27→17:06)
[2019-01-27] MEDS: Carbamide Peroxide 6.5% Otic Soln 15 ML Bottle EARBOTH SCH ×2 (07:27→17:06)
[2019-01-27] MEDS: Ibuprofen 600 MG Tab PO SCH ×2 (07:28→17:07)
[2019-01-27] MEDS: Furosemide 20 MG Tab PO SCH (07:28)
[2019-01-27] MEDS: Fludrocortisone 0.1 MG Tab PO SCH ×2 (07:28→19:32)
[2019-01-27] MEDS: Niacin 500 MG Tab PO SCH ×2 (07:28→17:07)
[2019-01-27] MEDS: Cyanocobalamin (Vitamin B12) 1,000 MCG Tab PO SCH (07:29)
[2019-01-27] MEDS: Potassium Chloride 10% 20 MEQ/15 ML Soln 15 ML UD Cup PO SCH ×3 (07:29→19:33)
[2019-01-27] MEDS: Cholecalciferol (Vitamin D3) 25 MCG Tab PO SCH (07:29)
[2019-01-27] MEDS: LEVOTHYROXINE SODIUM 137 MCG PO SCH (19:32)
[2019-01-27] MEDS: buPROPion 100 MG Tab PO SCH (19:33)
[2019-01-27] MEDS: Simvastatin 10 MG Tab PO SCH (19:34)
[2019-01-28] MEDS: Potassium Chloride 10% 20 MEQ/15 ML Soln 15 ML UD Cup PO SCH ×3 (07:18→19:23)
[2019-01-28] MEDS: Albuterol/Ipratropium 3.0-0.5 MG/3 ML Neb Soln NEB SCH ×2 (07:19→19:22)
[2019-01-28] MEDS: Citalopram 20 MG Tab PO SCH (07:20)
[2019-01-28] MEDS: Metoclopramide 10 MG Tab PO SCH ×2 (07:20→17:10)
[2019-01-28] MEDS: Carbamide Peroxide 6.5% Otic Soln 15 ML Bottle EARBOTH SCH ×2 (07:20→17:10)
[2019-01-28] MEDS: Furosemide 20 MG Tab PO SCH (07:20)
[2019-01-28] MEDS: Ibuprofen 600 MG Tab PO SCH ×2 (07:20→17:10)
[2019-01-28] MEDS: Fludrocortisone 0.1 MG Tab PO SCH ×2 (07:20→19:22)
[2019-01-28] MEDS: Cholecalciferol (Vitamin D3) 25 MCG Tab PO SCH (07:21)
[2019-01-28] MEDS: Cyanocobalamin (Vitamin B12) 1,000 MCG Tab PO SCH (07:21)
[2019-01-28] MEDS: Niacin 500 MG Tab PO SCH ×2 (07:21→17:10)
[2019-01-28] MEDS: Simvastatin 10 MG Tab PO SCH (19:23)
[2019-01-28] MEDS: LEVOTHYROXINE SODIUM 137 MCG PO SCH (19:23)
[2019-01-28] MEDS: buPROPion 100 MG Tab PO SCH (19:23)
[2019-01-29] MEDS: Carbamide Peroxide 6.5% Otic Soln 15 ML Bottle EARBOTH SCH ×2 (08:06→19:25)
[2019-01-29] MEDS: Metoclopramide 10 MG Tab PO SCH ×2 (08:06→17:45)
[2019-01-29] MEDS: Citalopram 20 MG Tab PO SCH (08:06)
[2019-01-29] MEDS: Fludrocortisone 0.1 MG Tab PO SCH ×2 (08:07→19:23)
[2019-01-29] MEDS: Furosemide 20 MG Tab PO SCH (08:07)
[2019-01-29] MEDS: Albuterol/Ipratropium 3.0-0.5 MG/3 ML Neb Soln NEB SCH ×2 (08:07→19:21)
[2019-01-29] MEDS: Niacin 500 MG Tab PO SCH ×2 (08:07→17:47)
[2019-01-29] MEDS: Ibuprofen 600 MG Tab PO SCH ×2 (08:07→17:46)
[2019-01-29] MEDS: Cyanocobalamin (Vitamin B12) 1,000 MCG Tab PO SCH (08:14)
[2019-01-29] MEDS: Potassium Chloride 10% 20 MEQ/15 ML Soln 15 ML UD Cup PO SCH ×3 (08:14→19:21)
[2019-01-29] MEDS: Cholecalciferol (Vitamin D3) 25 MCG Tab PO SCH (08:15)
[2019-01-29] MEDS: buPROPion 100 MG Tab PO SCH (19:23)
[2019-01-29] MEDS: Simvastatin 10 MG Tab PO SCH (19:23)
[2019-01-29] MEDS: LEVOTHYROXINE SODIUM 137 MCG PO SCH (19:23)
[2019-01-29] MEDS: Acetaminophen 325 MG Tab PO PRN (21:55)
[2019-01-30] MEDS: Metoclopramide 10 MG Tab PO SCH ×2 (07:43→17:49)
[2019-01-30] MEDS: Citalopram 20 MG Tab PO SCH (07:43)
[2019-01-30] MEDS: Albuterol/Ipratropium 3.0-0.5 MG/3 ML Neb Soln NEB SCH ×2 (07:44→19:08)
[2019-01-30] MEDS: Furosemide 20 MG Tab PO SCH (07:44)
[2019-01-30] MEDS: Ibuprofen 600 MG Tab PO SCH ×2 (07:44→17:49)
[2019-01-30] MEDS: Fludrocortisone 0.1 MG Tab PO SCH ×2 (07:44→19:08)
[2019-01-30] MEDS: Niacin 500 MG Tab PO SCH ×2 (07:45→17:50)
[2019-01-30] MEDS: Potassium Chloride 10% 20 MEQ/15 ML Soln 15 ML UD Cup PO SCH ×3 (07:46→19:08)
[2019-01-30] MEDS: Cyanocobalamin (Vitamin B12) 1,000 MCG Tab PO SCH (07:47)
[2019-01-30] MEDS: Cholecalciferol (Vitamin D3) 25 MCG Tab PO SCH (07:47)
[2019-01-30] MEDS: buPROPion 100 MG Tab PO SCH (19:08)
[2019-01-30] MEDS: LEVOTHYROXINE SODIUM 137 MCG PO SCH (19:08)
[2019-01-30] MEDS: Simvastatin 10 MG Tab PO SCH (19:09)
[2019-01-31] MEDS: Furosemide 20 MG Tab PO SCH (07:41)
[2019-01-31] MEDS: Metoclopramide 10 MG Tab PO SCH ×2 (07:41→17:21)
[2019-01-31] MEDS: Albuterol/Ipratropium 3.0-0.5 MG/3 ML Neb Soln NEB SCH ×2 (07:41→19:06)
[2019-01-31] MEDS: Fludrocortisone 0.1 MG Tab PO SCH ×2 (07:41→19:06)
[2019-01-31] MEDS: Citalopram 20 MG Tab PO SCH (07:41)
[2019-01-31] MEDS: Ibuprofen 600 MG Tab PO SCH ×2 (07:42→17:21)
[2019-01-31] MEDS: Niacin 500 MG Tab PO SCH ×2 (07:43→17:22)
[2019-01-31] MEDS: Cholecalciferol (Vitamin D3) 25 MCG Tab PO SCH (07:43)
[2019-01-31] MEDS: Cyanocobalamin (Vitamin B12) 1,000 MCG Tab PO SCH (07:43)
[2019-01-31] MEDS: Potassium Chloride 10% 20 MEQ/15 ML Soln 15 ML UD Cup PO SCH ×3 (07:44→19:07)
[2019-01-31] MEDS: buPROPion 100 MG Tab PO SCH (19:06)
[2019-01-31] MEDS: LEVOTHYROXINE SODIUM 137 MCG PO SCH (19:06)
[2019-01-31] MEDS: Simvastatin 10 MG Tab PO SCH (19:06)
[2019-02-01] MEDS: Ibuprofen 600 MG Tab PO SCH ×2 (08:02→17:57)
[2019-02-01] MEDS: Furosemide 20 MG Tab PO SCH (08:02)
[2019-02-01] MEDS: Metoclopramide 10 MG Tab PO SCH ×2 (08:02→17:56)
[2019-02-01] MEDS: Fludrocortisone 0.1 MG Tab PO SCH ×2 (08:02→19:22)
[2019-02-01] MEDS: Citalopram 20 MG Tab PO SCH (08:02)
[2019-02-01] MEDS: Potassium Chloride 10% 20 MEQ/15 ML Soln 15 ML UD Cup PO SCH ×3 (08:03→19:24)
[2019-02-01] MEDS: Niacin 500 MG Tab PO SCH ×2 (08:03→17:57)
[2019-02-01] MEDS: Cholecalciferol (Vitamin D3) 25 MCG Tab PO SCH (08:04)
[2019-02-01] MEDS: Cyanocobalamin (Vitamin B12) 1,000 MCG Tab PO SCH (08:04)
[2019-02-01] MEDS: Albuterol/Ipratropium 3.0-0.5 MG/3 ML Neb Soln NEB SCH ×2 (08:04→19:23)
[2019-02-01] MEDS: Simvastatin 10 MG Tab PO SCH (19:22)
[2019-02-01] MEDS: LEVOTHYROXINE SODIUM 137 MCG PO SCH (19:22)
[2019-02-01] MEDS: buPROPion 100 MG Tab PO SCH (19:22)
[2019-02-02] MEDS: Albuterol/Ipratropium 3.0-0.5 MG/3 ML Neb Soln NEB SCH ×2 (07:33→19:16)
[2019-02-02] MEDS: Metoclopramide 10 MG Tab PO SCH ×2 (07:34→17:10)
[2019-02-02] MEDS: Fludrocortisone 0.1 MG Tab PO SCH ×2 (07:34→19:17)
[2019-02-02] MEDS: Ibuprofen 600 MG Tab PO SCH ×2 (07:34→17:10)
[2019-02-02] MEDS: Furosemide 20 MG Tab PO SCH (07:34)
[2019-02-02] MEDS: Citalopram 20 MG Tab PO SCH (07:34)
[2019-02-02] MEDS: Potassium Chloride 10% 20 MEQ/15 ML Soln 15 ML UD Cup PO SCH ×3 (07:35→19:18)
[2019-02-02] MEDS: Niacin 500 MG Tab PO SCH ×2 (07:35→17:11)
[2019-02-02] MEDS: Cholecalciferol (Vitamin D3) 25 MCG Tab PO SCH (07:36)
[2019-02-02] MEDS: Cyanocobalamin (Vitamin B12) 1,000 MCG Tab PO SCH (07:36)
[2019-02-02] MEDS: Simvastatin 10 MG Tab PO SCH (19:17)
[2019-02-02] MEDS: LEVOTHYROXINE SODIUM 137 MCG PO SCH (19:17)
[2019-02-02] MEDS: buPROPion 100 MG Tab PO SCH (19:18)
[2019-02-03] MEDS: Citalopram 20 MG Tab PO SCH (08:05)
[2019-02-03] MEDS: Furosemide 20 MG Tab PO SCH (08:05)
[2019-02-03] MEDS: Metoclopramide 10 MG Tab PO SCH ×2 (08:05→17:43)
[2019-02-03] MEDS: Fludrocortisone 0.1 MG Tab PO SCH ×2 (08:05→19:37)
[2019-02-03] MEDS: Ibuprofen 600 MG Tab PO SCH ×2 (08:05→17:43)
[2019-02-03] MEDS: Cyanocobalamin (Vitamin B12) 1,000 MCG Tab PO SCH (08:06)
[2019-02-03] MEDS: Potassium Chloride 10% 20 MEQ/15 ML Soln 15 ML UD Cup PO SCH ×3 (08:06→19:37)
[2019-02-03] MEDS: Niacin 500 MG Tab PO SCH ×2 (08:06→17:43)
[2019-02-03] MEDS: Cholecalciferol (Vitamin D3) 25 MCG Tab PO SCH (08:06)
[2019-02-03] MEDS: Albuterol/Ipratropium 3.0-0.5 MG/3 ML Neb Soln NEB SCH ×2 (08:07→19:36)
[2019-02-03] MEDS: LEVOTHYROXINE SODIUM 137 MCG PO SCH (19:37)
[2019-02-03] MEDS: Simvastatin 10 MG Tab PO SCH (19:38)
[2019-02-03] MEDS: buPROPion 100 MG Tab PO SCH (19:38)
[2019-02-04] MEDS: Fludrocortisone 0.1 MG Tab PO SCH ×2 (07:56→19:44)
[2019-02-04] MEDS: Metoclopramide 10 MG Tab PO SCH ×2 (07:56→17:25)
[2019-02-04] MEDS: Citalopram 20 MG Tab PO SCH (07:56)
[2019-02-04] MEDS: Ibuprofen 600 MG Tab PO SCH ×2 (07:57→17:25)
[2019-02-04] MEDS: Furosemide 20 MG Tab PO SCH (07:57)
[2019-02-04] MEDS: Albuterol/Ipratropium 3.0-0.5 MG/3 ML Neb Soln NEB SCH ×2 (07:57→19:42)
[2019-02-04] MEDS: Niacin 500 MG Tab PO SCH ×2 (07:58→17:26)
[2019-02-04] MEDS: Potassium Chloride 10% 20 MEQ/15 ML Soln 15 ML UD Cup PO SCH ×3 (07:58→19:45)
[2019-02-04] MEDS: Cyanocobalamin (Vitamin B12) 1,000 MCG Tab PO SCH (07:59)
[2019-02-04] MEDS: Cholecalciferol (Vitamin D3) 25 MCG Tab PO SCH (07:59)
[2019-02-04] MEDS: LEVOTHYROXINE SODIUM 137 MCG PO SCH (19:44)
[2019-02-04] MEDS: Simvastatin 10 MG Tab PO SCH (19:45)
[2019-02-04] MEDS: buPROPion 100 MG Tab PO SCH (19:45)
[2019-02-05] MEDS: Albuterol/Ipratropium 3.0-0.5 MG/3 ML Neb Soln NEB SCH ×2 (07:27→19:42)
[2019-02-05] MEDS: Potassium Chloride 10% 20 MEQ/15 ML Soln 15 ML UD Cup PO SCH ×3 (07:28→19:43)
[2019-02-05] MEDS: Furosemide 20 MG Tab PO SCH (07:29)
[2019-02-05] MEDS: Fludrocortisone 0.1 MG Tab PO SCH ×2 (07:29→19:42)
[2019-02-05] MEDS: Metoclopramide 10 MG Tab PO SCH ×2 (07:29→17:15)
[2019-02-05] MEDS: Ibuprofen 600 MG Tab PO SCH ×2 (07:29→17:15)
[2019-02-05] MEDS: Citalopram 20 MG Tab PO SCH (07:29)
[2019-02-05] MEDS: Niacin 500 MG Tab PO SCH ×2 (07:30→17:15)
[2019-02-05] MEDS: Cholecalciferol (Vitamin D3) 25 MCG Tab PO SCH (07:31)
[2019-02-05] MEDS: Cyanocobalamin (Vitamin B12) 1,000 MCG Tab PO SCH (07:31)
[2019-02-05] MEDS: Acetaminophen 325 MG Tab PO PRN (13:04)
[2019-02-05] MEDS: LEVOTHYROXINE SODIUM 137 MCG PO SCH (19:42)
[2019-02-05] MEDS: Simvastatin 10 MG Tab PO SCH (19:43)
[2019-02-05] MEDS: buPROPion 100 MG Tab PO SCH (19:43)
[2019-02-06] MEDS: Potassium Chloride 10% 20 MEQ/15 ML Soln 15 ML UD Cup PO SCH ×3 (07:28→19:02)
[2019-02-06] MEDS: Albuterol/Ipratropium 3.0-0.5 MG/3 ML Neb Soln NEB SCH ×2 (07:29→19:02)
[2019-02-06] MEDS: Metoclopramide 10 MG Tab PO SCH ×2 (07:29→16:59)
[2019-02-06] MEDS: Ibuprofen 600 MG Tab PO SCH ×2 (07:29→17:00)
[2019-02-06] MEDS: Fludrocortisone 0.1 MG Tab PO SCH ×2 (07:29→19:03)
[2019-02-06] MEDS: Citalopram 20 MG Tab PO SCH (07:29)
[2019-02-06] MEDS: Furosemide 20 MG Tab PO SCH (07:29)
[2019-02-06] MEDS: Niacin 500 MG Tab PO SCH ×2 (07:30→17:00)
[2019-02-06] MEDS: Cyanocobalamin (Vitamin B12) 1,000 MCG Tab PO SCH (07:30)
[2019-02-06] MEDS: Cholecalciferol (Vitamin D3) 25 MCG Tab PO SCH (07:30)
[2019-02-06] MEDS: Simvastatin 10 MG Tab PO SCH (19:02)
[2019-02-06] MEDS: buPROPion 100 MG Tab PO SCH (19:03)
[2019-02-06] MEDS: LEVOTHYROXINE SODIUM 137 MCG PO SCH (19:03)
[2019-02-07] MEDS: Potassium Chloride 10% 20 MEQ/15 ML Soln 15 ML UD Cup PO SCH ×3 (07:36→19:04)
[2019-02-07] MEDS: Metoclopramide 10 MG Tab PO SCH ×2 (07:37→17:06)
[2019-02-07] MEDS: Ibuprofen 600 MG Tab PO SCH ×2 (07:37→17:06)
[2019-02-07] MEDS: Citalopram 20 MG Tab PO SCH (07:37)
[2019-02-07] MEDS: Fludrocortisone 0.1 MG Tab PO SCH ×2 (07:37→19:06)
[2019-02-07] MEDS: Furosemide 20 MG Tab PO SCH (07:37)
[2019-02-07] MEDS: Albuterol/Ipratropium 3.0-0.5 MG/3 ML Neb Soln NEB SCH ×2 (07:37→19:03)
[2019-02-07] MEDS: Cyanocobalamin (Vitamin B12) 1,000 MCG Tab PO SCH (07:38)
[2019-02-07] MEDS: Cholecalciferol (Vitamin D3) 25 MCG Tab PO SCH (07:38)
[2019-02-07] MEDS: Niacin 500 MG Tab PO SCH ×2 (07:38→17:06)
[2019-02-07] MEDS: Simvastatin 10 MG Tab PO SCH (19:05)
[2019-02-07] MEDS: buPROPion 100 MG Tab PO SCH (19:05)
[2019-02-07] MEDS: LEVOTHYROXINE SODIUM 137 MCG PO SCH (19:06)
[2019-02-08] MEDS: Metoclopramide 10 MG Tab PO SCH ×2 (07:58→17:50)
[2019-02-08] MEDS: Citalopram 20 MG Tab PO SCH (07:58)
[2019-02-08] MEDS: Niacin 500 MG Tab PO SCH ×2 (07:59→17:50)
[2019-02-08] MEDS: Fludrocortisone 0.1 MG Tab PO SCH ×2 (07:59→19:04)
[2019-02-08] MEDS: Albuterol/Ipratropium 3.0-0.5 MG/3 ML Neb Soln NEB SCH ×2 (07:59→19:03)
[2019-02-08] MEDS: Furosemide 20 MG Tab PO SCH (07:59)
[2019-02-08] MEDS: Ibuprofen 600 MG Tab PO SCH ×2 (07:59→17:50)
[2019-02-08] MEDS: Cholecalciferol (Vitamin D3) 25 MCG Tab PO SCH (08:00)
[2019-02-08] MEDS: Cyanocobalamin (Vitamin B12) 1,000 MCG Tab PO SCH (08:00)
[2019-02-08] MEDS: Potassium Chloride 10% 20 MEQ/15 ML Soln 15 ML UD Cup PO SCH ×3 (08:01→19:03)
[2019-02-08] MEDS: Simvastatin 10 MG Tab PO SCH (19:04)
[2019-02-08] MEDS: LEVOTHYROXINE SODIUM 137 MCG PO SCH (19:04)
[2019-02-08] MEDS: buPROPion 100 MG Tab PO SCH (19:04)
[2019-02-09] MEDS: Potassium Chloride 10% 20 MEQ/15 ML Soln 15 ML UD Cup PO SCH ×3 (07:14→19:14)
[2019-02-09] MEDS: Albuterol/Ipratropium 3.0-0.5 MG/3 ML Neb Soln NEB SCH ×2 (07:15→19:14)
[2019-02-09] MEDS: Citalopram 20 MG Tab PO SCH (07:15)
[2019-02-09] MEDS: Metoclopramide 10 MG Tab PO SCH ×2 (07:15→17:10)
[2019-02-09] MEDS: Fludrocortisone 0.1 MG Tab PO SCH ×2 (07:15→19:14)
[2019-02-09] MEDS: Furosemide 20 MG Tab PO SCH (07:15)
[2019-02-09] MEDS: Niacin 500 MG Tab PO SCH ×2 (07:16→17:10)
[2019-02-09] MEDS: Ibuprofen 600 MG Tab PO SCH ×2 (07:16→17:10)
[2019-02-09] MEDS: Cyanocobalamin (Vitamin B12) 1,000 MCG Tab PO SCH (07:16)
[2019-02-09] MEDS: Cholecalciferol (Vitamin D3) 25 MCG Tab PO SCH (07:17)
[2019-02-09] MEDS: LEVOTHYROXINE SODIUM 137 MCG PO SCH (19:14)
[2019-02-09] MEDS: Simvastatin 10 MG Tab PO SCH (19:15)
[2019-02-09] MEDS: buPROPion 100 MG Tab PO SCH (19:15)
[2019-02-10] MEDS: Acetaminophen 325 MG Tab PO PRN (00:23)
[2019-02-10] MEDS: Metoclopramide 10 MG Tab PO SCH ×2 (08:13→18:08)
[2019-02-10] MEDS: Citalopram 20 MG Tab PO SCH (08:13)
[2019-02-10] MEDS: Ibuprofen 600 MG Tab PO SCH ×2 (08:14→18:08)
[2019-02-10] MEDS: Furosemide 20 MG Tab PO SCH (08:14)
[2019-02-10] MEDS: Albuterol/Ipratropium 3.0-0.5 MG/3 ML Neb Soln NEB SCH ×2 (08:14→19:38)
[2019-02-10] MEDS: Fludrocortisone 0.1 MG Tab PO SCH ×2 (08:14→19:39)
[2019-02-10] MEDS: Niacin 500 MG Tab PO SCH ×2 (08:15→18:08)
[2019-02-10] MEDS: Potassium Chloride 10% 20 MEQ/15 ML Soln 15 ML UD Cup PO SCH ×3 (08:18→19:40)
[2019-02-10] MEDS: Cyanocobalamin (Vitamin B12) 1,000 MCG Tab PO SCH (08:18)
[2019-02-10] MEDS: Cholecalciferol (Vitamin D3) 25 MCG Tab PO SCH (08:18)
[2019-02-10] MEDS: LEVOTHYROXINE SODIUM 137 MCG PO SCH (19:40)
[2019-02-10] MEDS: Simvastatin 10 MG Tab PO SCH (19:41)
[2019-02-10] MEDS: buPROPion 100 MG Tab PO SCH (19:41)
[2019-02-11] MEDS: Furosemide 20 MG Tab PO SCH (07:45)
[2019-02-11] MEDS: Metoclopramide 10 MG Tab PO SCH ×2 (07:45→17:52)
[2019-02-11] MEDS: Citalopram 20 MG Tab PO SCH (07:45)
[2019-02-11] MEDS: Fludrocortisone 0.1 MG Tab PO SCH ×2 (07:45→20:10)
[2019-02-11] MEDS: Ibuprofen 600 MG Tab PO SCH ×2 (07:46→17:52)
[2019-02-11] MEDS: Albuterol/Ipratropium 3.0-0.5 MG/3 ML Neb Soln NEB SCH ×2 (07:46→20:09)
[2019-02-11] MEDS: Cyanocobalamin (Vitamin B12) 1,000 MCG Tab PO SCH (07:47)
[2019-02-11] MEDS: Niacin 500 MG Tab PO SCH ×2 (07:47→17:52)
[2019-02-11] MEDS: Cholecalciferol (Vitamin D3) 25 MCG Tab PO SCH (07:48)
[2019-02-11] MEDS: Potassium Chloride 10% 20 MEQ/15 ML Soln 15 ML UD Cup PO SCH ×3 (07:48→20:11)
[2019-02-11] MEDS: buPROPion 100 MG Tab PO SCH (20:10)
[2019-02-11] MEDS: LEVOTHYROXINE SODIUM 137 MCG PO SCH (20:10)
[2019-02-11] MEDS: Simvastatin 10 MG Tab PO SCH (20:11)
[2019-02-12] MEDS: Furosemide 20 MG Tab PO SCH (08:20)
[2019-02-12] MEDS: Fludrocortisone 0.1 MG Tab PO SCH ×2 (08:20→19:18)
[2019-02-12] MEDS: Metoclopramide 10 MG Tab PO SCH ×2 (08:20→18:11)
[2019-02-12] MEDS: Citalopram 20 MG Tab PO SCH (08:20)
[2019-02-12] MEDS: Ibuprofen 600 MG Tab PO SCH ×2 (08:20→18:11)
[2019-02-12] MEDS: Albuterol/Ipratropium 3.0-0.5 MG/3 ML Neb Soln NEB SCH ×2 (08:21→19:17)
[2019-02-12] MEDS: Niacin 500 MG Tab PO SCH ×2 (08:21→18:11)
[2019-02-12] MEDS: Cyanocobalamin (Vitamin B12) 1,000 MCG Tab PO SCH (08:21)
[2019-02-12] MEDS: Potassium Chloride 10% 20 MEQ/15 ML Soln 15 ML UD Cup PO SCH ×3 (08:22→19:18)
[2019-02-12] MEDS: Cholecalciferol (Vitamin D3) 25 MCG Tab PO SCH (08:22)
[2019-02-12] MEDS: Simvastatin 10 MG Tab PO SCH (19:17)
[2019-02-12] MEDS: buPROPion 100 MG Tab PO SCH (19:18)
[2019-02-12] MEDS: LEVOTHYROXINE SODIUM 137 MCG PO SCH (19:18)
[2019-02-13] MEDS: Metoclopramide 10 MG Tab PO SCH ×2 (07:59→17:49)
[2019-02-13] MEDS: Fludrocortisone 0.1 MG Tab PO SCH ×2 (07:59→19:27)
[2019-02-13] MEDS: Furosemide 20 MG Tab PO SCH (07:59)
[2019-02-13] MEDS: Albuterol/Ipratropium 3.0-0.5 MG/3 ML Neb Soln NEB SCH ×2 (08:00→19:26)
[2019-02-13] MEDS: Ibuprofen 600 MG Tab PO SCH ×2 (08:00→17:49)
[2019-02-13] MEDS: Citalopram 20 MG Tab PO SCH (08:00)
[2019-02-13] MEDS: Niacin 500 MG Tab PO SCH ×2 (08:01→17:50)
[2019-02-13] MEDS: Potassium Chloride 10% 20 MEQ/15 ML Soln 15 ML UD Cup PO SCH ×3 (08:01→19:28)
[2019-02-13] MEDS: Cholecalciferol (Vitamin D3) 25 MCG Tab PO SCH (08:02)
[2019-02-13] MEDS: Cyanocobalamin (Vitamin B12) 1,000 MCG Tab PO SCH (08:02)
[2019-02-13] MEDS: LEVOTHYROXINE SODIUM 137 MCG PO SCH (19:27)
[2019-02-13] MEDS: buPROPion 100 MG Tab PO SCH (19:28)
[2019-02-13] MEDS: Simvastatin 10 MG Tab PO SCH (19:28)
[2019-02-14] MEDS: Metoclopramide 10 MG Tab PO SCH ×2 (07:52→17:58)
[2019-02-14] MEDS: Citalopram 20 MG Tab PO SCH (07:52)
[2019-02-14] MEDS: Fludrocortisone 0.1 MG Tab PO SCH ×2 (07:53→19:25)
[2019-02-14] MEDS: Furosemide 20 MG Tab PO SCH (07:53)
[2019-02-14] MEDS: Ibuprofen 600 MG Tab PO SCH ×2 (07:53→17:58)
[2019-02-14] MEDS: Albuterol/Ipratropium 3.0-0.5 MG/3 ML Neb Soln NEB SCH ×2 (07:53→19:25)
[2019-02-14] MEDS: Cholecalciferol (Vitamin D3) 25 MCG Tab PO SCH (07:54)
[2019-02-14] MEDS: Niacin 500 MG Tab PO SCH ×2 (07:54→17:58)
[2019-02-14] MEDS: Potassium Chloride 10% 20 MEQ/15 ML Soln 15 ML UD Cup PO SCH ×3 (07:54→19:26)
[2019-02-14] MEDS: Cyanocobalamin (Vitamin B12) 1,000 MCG Tab PO SCH (07:54)
[2019-02-14] MEDS: LEVOTHYROXINE SODIUM 137 MCG PO SCH (19:26)
[2019-02-14] MEDS: buPROPion 100 MG Tab PO SCH (19:27)
[2019-02-14] MEDS: Simvastatin 10 MG Tab PO SCH (19:27)
[2019-02-15] MEDS: Furosemide 20 MG Tab PO SCH (07:53)
[2019-02-15] MEDS: Ibuprofen 600 MG Tab PO SCH ×2 (07:53→18:04)
[2019-02-15] MEDS: Metoclopramide 10 MG Tab PO SCH ×2 (07:53→18:04)
[2019-02-15] MEDS: Citalopram 20 MG Tab PO SCH (07:53)
[2019-02-15] MEDS: Fludrocortisone 0.1 MG Tab PO SCH ×2 (07:53→19:43)
[2019-02-15] MEDS: Cyanocobalamin (Vitamin B12) 1,000 MCG Tab PO SCH (07:54)
[2019-02-15] MEDS: Niacin 500 MG Tab PO SCH ×2 (07:54→18:04)
[2019-02-15] MEDS: Cholecalciferol (Vitamin D3) 25 MCG Tab PO SCH (07:55)
[2019-02-15] MEDS: Potassium Chloride 10% 20 MEQ/15 ML Soln 15 ML UD Cup PO SCH ×3 (07:55→19:44)
[2019-02-15] MEDS: Albuterol/Ipratropium 3.0-0.5 MG/3 ML Neb Soln NEB SCH ×2 (07:55→19:43)
[2019-02-15] MEDS: LEVOTHYROXINE SODIUM 137 MCG PO SCH (19:43)
[2019-02-15] MEDS: buPROPion 100 MG Tab PO SCH (19:43)
[2019-02-15] MEDS: Simvastatin 10 MG Tab PO SCH (19:44)
[2019-02-16] MEDS: Metoclopramide 10 MG Tab PO SCH ×2 (07:40→17:07)
[2019-02-16] MEDS: Citalopram 20 MG Tab PO SCH (07:40)
[2019-02-16] MEDS: Albuterol/Ipratropium 3.0-0.5 MG/3 ML Neb Soln NEB SCH ×2 (07:40→19:32)
[2019-02-16] MEDS: Ibuprofen 600 MG Tab PO SCH ×2 (07:41→17:07)
[2019-02-16] MEDS: Fludrocortisone 0.1 MG Tab PO SCH ×2 (07:41→19:33)
[2019-02-16] MEDS: Furosemide 20 MG Tab PO SCH (07:41)
[2019-02-16] MEDS: Niacin 500 MG Tab PO SCH ×2 (07:42→17:08)
[2019-02-16] MEDS: Potassium Chloride 10% 20 MEQ/15 ML Soln 15 ML UD Cup PO SCH ×3 (07:42→19:34)
[2019-02-16] MEDS: Cholecalciferol (Vitamin D3) 25 MCG Tab PO SCH (07:43)
[2019-02-16] MEDS: Cyanocobalamin (Vitamin B12) 1,000 MCG Tab PO SCH (07:43)
[2019-02-16] MEDS: Simvastatin 10 MG Tab PO SCH (19:33)
[2019-02-16] MEDS: buPROPion 100 MG Tab PO SCH (19:33)
[2019-02-16] MEDS: LEVOTHYROXINE SODIUM 137 MCG PO SCH (19:33)
[2019-02-17] MEDS: Ibuprofen 600 MG Tab PO SCH ×2 (07:58→17:59)
[2019-02-17] MEDS: Albuterol/Ipratropium 3.0-0.5 MG/3 ML Neb Soln NEB SCH ×2 (07:59→19:27)
[2019-02-17] MEDS: Furosemide 20 MG Tab PO SCH (07:59)
[2019-02-17] MEDS: Fludrocortisone 0.1 MG Tab PO SCH ×2 (07:59→19:27)
[2019-02-17] MEDS: Citalopram 20 MG Tab PO SCH (07:59)
[2019-02-17] MEDS: Metoclopramide 10 MG Tab PO SCH ×2 (07:59→18:00)
[2019-02-17] MEDS: Cholecalciferol (Vitamin D3) 25 MCG Tab PO SCH (08:00)
[2019-02-17] MEDS: Potassium Chloride 10% 20 MEQ/15 ML Soln 15 ML UD Cup PO SCH ×3 (08:01→19:29)
[2019-02-17] MEDS: Cyanocobalamin (Vitamin B12) 1,000 MCG Tab PO SCH (08:01)
[2019-02-17] MEDS: Niacin 500 MG Tab PO SCH ×2 (08:01→17:59)
[2019-02-17] MEDS: LEVOTHYROXINE SODIUM 137 MCG PO SCH (19:28)
[2019-02-17] MEDS: buPROPion 100 MG Tab PO SCH (19:28)
[2019-02-17] MEDS: Simvastatin 10 MG Tab PO SCH (19:28)
[2019-02-18] MEDS: Citalopram 20 MG Tab PO SCH (07:59)
[2019-02-18] MEDS: Metoclopramide 10 MG Tab PO SCH ×2 (07:59→17:15)
[2019-02-18] MEDS: Fludrocortisone 0.1 MG Tab PO SCH ×2 (08:00→19:09)
[2019-02-18] MEDS: Ibuprofen 600 MG Tab PO SCH ×2 (08:00→17:15)
[2019-02-18] MEDS: Furosemide 20 MG Tab PO SCH (08:00)
[2019-02-18] MEDS: Cholecalciferol (Vitamin D3) 25 MCG Tab PO SCH (08:01)
[2019-02-18] MEDS: Niacin 500 MG Tab PO SCH ×2 (08:01→17:16)
[2019-02-18] MEDS: Albuterol/Ipratropium 3.0-0.5 MG/3 ML Neb Soln NEB SCH ×2 (08:01→19:08)
[2019-02-18] MEDS: Potassium Chloride 10% 20 MEQ/15 ML Soln 15 ML UD Cup PO SCH ×3 (08:02→19:10)
[2019-02-18] MEDS: Cyanocobalamin (Vitamin B12) 1,000 MCG Tab PO SCH (08:02)
[2019-02-18] MEDS: LEVOTHYROXINE SODIUM 137 MCG PO SCH (19:09)
[2019-02-18] MEDS: Simvastatin 10 MG Tab PO SCH (19:09)
[2019-02-18] MEDS: buPROPion 100 MG Tab PO SCH (19:09)
[2019-02-19] MEDS: Albuterol/Ipratropium 3.0-0.5 MG/3 ML Neb Soln NEB SCH ×2 (07:19→19:10)
[2019-02-19] MEDS: Metoclopramide 10 MG Tab PO SCH ×2 (07:21→17:08)
[2019-02-19] MEDS: Furosemide 20 MG Tab PO SCH (07:21)
[2019-02-19] MEDS: Fludrocortisone 0.1 MG Tab PO SCH ×2 (07:21→19:10)
[2019-02-19] MEDS: Citalopram 20 MG Tab PO SCH (07:21)
[2019-02-19] MEDS: Ibuprofen 600 MG Tab PO SCH ×2 (07:21→17:08)
[2019-02-19] MEDS: Niacin 500 MG Tab PO SCH ×2 (07:22→17:09)
[2019-02-19] MEDS: Potassium Chloride 10% 20 MEQ/15 ML Soln 15 ML UD Cup PO SCH ×3 (07:22→19:10)
[2019-02-19] MEDS: Cholecalciferol (Vitamin D3) 25 MCG Tab PO SCH (07:23)
[2019-02-19] MEDS: Cyanocobalamin (Vitamin B12) 1,000 MCG Tab PO SCH (07:23)
[2019-02-19] MEDS: buPROPion 100 MG Tab PO SCH (19:10)
[2019-02-19] MEDS: LEVOTHYROXINE SODIUM 137 MCG PO SCH (19:10)
[2019-02-19] MEDS: Simvastatin 10 MG Tab PO SCH (19:10)
[2019-02-20] MEDS: Albuterol/Ipratropium 3.0-0.5 MG/3 ML Neb Soln NEB SCH ×2 (07:04→19:05)
[2019-02-20] MEDS: Metoclopramide 10 MG Tab PO SCH ×2 (07:05→17:05)
[2019-02-20] MEDS: Furosemide 20 MG Tab PO SCH (07:05)
[2019-02-20] MEDS: Fludrocortisone 0.1 MG Tab PO SCH ×2 (07:05→19:06)
[2019-02-20] MEDS: Citalopram 20 MG Tab PO SCH (07:05)
[2019-02-20] MEDS: Ibuprofen 600 MG Tab PO SCH ×2 (07:05→17:06)
[2019-02-20] MEDS: Potassium Chloride 10% 20 MEQ/15 ML Soln 15 ML UD Cup PO SCH ×3 (07:06→19:05)
[2019-02-20] MEDS: Niacin 500 MG Tab PO SCH ×2 (07:06→17:06)
[2019-02-20] MEDS: Cyanocobalamin (Vitamin B12) 1,000 MCG Tab PO SCH (07:07)
[2019-02-20] MEDS: Cholecalciferol (Vitamin D3) 25 MCG Tab PO SCH (07:07)
[2019-02-20] MEDS: LEVOTHYROXINE SODIUM 137 MCG PO SCH (19:06)
[2019-02-20] MEDS: buPROPion 100 MG Tab PO SCH (19:06)
[2019-02-20] MEDS: Simvastatin 10 MG Tab PO SCH (19:07)
[2019-02-21] MEDS: Albuterol/Ipratropium 3.0-0.5 MG/3 ML Neb Soln NEB SCH ×2 (07:34→19:05)
[2019-02-21] MEDS: Potassium Chloride 10% 20 MEQ/15 ML Soln 15 ML UD Cup PO SCH ×3 (07:35→19:04)
[2019-02-21] MEDS: Metoclopramide 10 MG Tab PO SCH ×2 (07:35→17:08)
[2019-02-21] MEDS: Citalopram 20 MG Tab PO SCH (07:36)
[2019-02-21] MEDS: Ibuprofen 600 MG Tab PO SCH ×2 (07:36→17:08)
[2019-02-21] MEDS: Fludrocortisone 0.1 MG Tab PO SCH ×2 (07:36→19:04)
[2019-02-21] MEDS: Furosemide 20 MG Tab PO SCH (07:36)
[2019-02-21] MEDS: Niacin 500 MG Tab PO SCH ×2 (07:36→17:09)
[2019-02-21] MEDS: Cyanocobalamin (Vitamin B12) 1,000 MCG Tab PO SCH (07:37)
[2019-02-21] MEDS: Cholecalciferol (Vitamin D3) 25 MCG Tab PO SCH (07:37)
[2019-02-21] MEDS: Simvastatin 10 MG Tab PO SCH (19:04)
[2019-02-21] MEDS: LEVOTHYROXINE SODIUM 137 MCG PO SCH (19:04)
[2019-02-21] MEDS: buPROPion 100 MG Tab PO SCH (19:04)
[2019-02-22] MEDS: Albuterol/Ipratropium 3.0-0.5 MG/3 ML Neb Soln NEB SCH ×2 (07:13→19:33)
[2019-02-22] MEDS: Metoclopramide 10 MG Tab PO SCH ×2 (07:14→17:13)
[2019-02-22] MEDS: Citalopram 20 MG Tab PO SCH (07:14)
[2019-02-22] MEDS: Ibuprofen 600 MG Tab PO SCH ×2 (07:15→17:13)
[2019-02-22] MEDS: Niacin 500 MG Tab PO SCH ×2 (07:15→17:13)
[2019-02-22] MEDS: Fludrocortisone 0.1 MG Tab PO SCH ×2 (07:15→19:34)
[2019-02-22] MEDS: Furosemide 20 MG Tab PO SCH (07:15)
[2019-02-22] MEDS: Cholecalciferol (Vitamin D3) 25 MCG Tab PO SCH (07:16)
[2019-02-22] MEDS: Cyanocobalamin (Vitamin B12) 1,000 MCG Tab PO SCH (07:16)
[2019-02-22] MEDS: Potassium Chloride 10% 20 MEQ/15 ML Soln 15 ML UD Cup PO SCH ×3 (07:16→19:35)
[2019-02-22] MEDS: LEVOTHYROXINE SODIUM 137 MCG PO SCH (19:34)
[2019-02-22] MEDS: buPROPion 100 MG Tab PO SCH (19:34)
[2019-02-22] MEDS: Simvastatin 10 MG Tab PO SCH (19:34)
[2019-02-23] MEDS: Metoclopramide 10 MG Tab PO SCH ×2 (08:00→18:07)
[2019-02-23] MEDS: Citalopram 20 MG Tab PO SCH (08:01)
[2019-02-23] MEDS: Fludrocortisone 0.1 MG Tab PO SCH ×2 (08:01→19:32)
[2019-02-23] MEDS: Furosemide 20 MG Tab PO SCH (08:01)
[2019-02-23] MEDS: Ibuprofen 600 MG Tab PO SCH ×2 (08:01→18:07)
[2019-02-23] MEDS: Cholecalciferol (Vitamin D3) 25 MCG Tab PO SCH (08:02)
[2019-02-23] MEDS: Cyanocobalamin (Vitamin B12) 1,000 MCG Tab PO SCH (08:02)
[2019-02-23] MEDS: Niacin 500 MG Tab PO SCH ×2 (08:02→18:08)
[2019-02-23] MEDS: Albuterol/Ipratropium 3.0-0.5 MG/3 ML Neb Soln NEB SCH ×2 (08:02→19:34)
[2019-02-23] MEDS: Potassium Chloride 10% 20 MEQ/15 ML Soln 15 ML UD Cup PO SCH ×3 (08:03→19:34)
[2019-02-23] MEDS: LEVOTHYROXINE SODIUM 137 MCG PO SCH (19:32)
[2019-02-23] MEDS: buPROPion 100 MG Tab PO SCH (19:32)
[2019-02-23] MEDS: Simvastatin 10 MG Tab PO SCH (19:33)
[2019-02-24] MEDS: Albuterol/Ipratropium 3.0-0.5 MG/3 ML Neb Soln NEB SCH ×2 (07:26→19:21)
[2019-02-24] MEDS: Metoclopramide 10 MG Tab PO SCH ×2 (07:27→17:18)
[2019-02-24] MEDS: Potassium Chloride 10% 20 MEQ/15 ML Soln 15 ML UD Cup PO SCH ×3 (07:27→19:22)
[2019-02-24] MEDS: Citalopram 20 MG Tab PO SCH (07:27)
[2019-02-24] MEDS: Furosemide 20 MG Tab PO SCH (07:28)
[2019-02-24] MEDS: Ibuprofen 600 MG Tab PO SCH ×2 (07:28→17:18)
[2019-02-24] MEDS: Fludrocortisone 0.1 MG Tab PO SCH ×2 (07:28→19:21)
[2019-02-24] MEDS: Niacin 500 MG Tab PO SCH ×2 (07:28→17:18)
[2019-02-24] MEDS: Cholecalciferol (Vitamin D3) 25 MCG Tab PO SCH (07:29)
[2019-02-24] MEDS: Cyanocobalamin (Vitamin B12) 1,000 MCG Tab PO SCH (07:29)
[2019-02-24] MEDS: buPROPion 100 MG Tab PO SCH (19:21)
[2019-02-24] MEDS: LEVOTHYROXINE SODIUM 137 MCG PO SCH (19:21)
[2019-02-24] MEDS: Simvastatin 10 MG Tab PO SCH (19:22)
[2019-02-25] MEDS: Metoclopramide 10 MG Tab PO SCH ×2 (08:05→18:07)
[2019-02-25] MEDS: Fludrocortisone 0.1 MG Tab PO SCH ×2 (08:06→19:02)
[2019-02-25] MEDS: Furosemide 20 MG Tab PO SCH (08:06)
[2019-02-25] MEDS: Citalopram 20 MG Tab PO SCH (08:06)
[2019-02-25] MEDS: Ibuprofen 600 MG Tab PO SCH ×2 (08:06→18:07)
[2019-02-25] MEDS: Cyanocobalamin (Vitamin B12) 1,000 MCG Tab PO SCH (08:07)
[2019-02-25] MEDS: Niacin 500 MG Tab PO SCH ×2 (08:07→18:07)
[2019-02-25] MEDS: Potassium Chloride 10% 20 MEQ/15 ML Soln 15 ML UD Cup PO SCH ×3 (08:07→19:06)
[2019-02-25] MEDS: Albuterol/Ipratropium 3.0-0.5 MG/3 ML Neb Soln NEB SCH ×2 (08:08→19:02)
[2019-02-25] MEDS: Cholecalciferol (Vitamin D3) 25 MCG Tab PO SCH (08:08)
[2019-02-25] MEDS: LEVOTHYROXINE SODIUM 137 MCG PO SCH (19:02)
[2019-02-25] MEDS: buPROPion 100 MG Tab PO SCH (19:07)
[2019-02-25] MEDS: Simvastatin 10 MG Tab PO SCH (19:07)
[2019-02-26] MEDS: Fludrocortisone 0.1 MG Tab PO SCH ×2 (08:09→19:06)
[2019-02-26] MEDS: Metoclopramide 10 MG Tab PO SCH ×2 (08:09→17:55)
[2019-02-26] MEDS: Citalopram 20 MG Tab PO SCH (08:09)
[2019-02-26] MEDS: Ibuprofen 600 MG Tab PO SCH ×2 (08:10→17:55)
[2019-02-26] MEDS: Furosemide 20 MG Tab PO SCH (08:10)
[2019-02-26] MEDS: Niacin 500 MG Tab PO SCH ×2 (08:11→17:56)
[2019-02-26] MEDS: Potassium Chloride 10% 20 MEQ/15 ML Soln 15 ML UD Cup PO SCH ×3 (08:11→19:06)
[2019-02-26] MEDS: Albuterol/Ipratropium 3.0-0.5 MG/3 ML Neb Soln NEB SCH ×2 (08:11→19:05)
[2019-02-26] MEDS: Cholecalciferol (Vitamin D3) 25 MCG Tab PO SCH (08:12)
[2019-02-26] MEDS: Cyanocobalamin (Vitamin B12) 1,000 MCG Tab PO SCH (08:12)
[2019-02-26] MEDS: LEVOTHYROXINE SODIUM 137 MCG PO SCH (19:07)
[2019-02-26] MEDS: buPROPion 100 MG Tab PO SCH (19:07)
[2019-02-26] MEDS: Simvastatin 10 MG Tab PO SCH (19:07)
[2019-02-27] MEDS: Fludrocortisone 0.1 MG Tab PO SCH ×2 (08:17→19:35)
[2019-02-27] MEDS: Citalopram 20 MG Tab PO SCH (08:17)
[2019-02-27] MEDS: Furosemide 20 MG Tab PO SCH (08:17)
[2019-02-27] MEDS: Albuterol/Ipratropium 3.0-0.5 MG/3 ML Neb Soln NEB SCH ×2 (08:17→19:35)
[2019-02-27] MEDS: Metoclopramide 10 MG Tab PO SCH ×2 (08:17→18:00)
[2019-02-27] MEDS: Niacin 500 MG Tab PO SCH ×2 (08:18→18:02)
[2019-02-27] MEDS: Ibuprofen 600 MG Tab PO SCH ×2 (08:18→18:00)
[2019-02-27] MEDS: Potassium Chloride 10% 20 MEQ/15 ML Soln 15 ML UD Cup PO SCH ×3 (08:19→19:36)
[2019-02-27] MEDS: Cholecalciferol (Vitamin D3) 25 MCG Tab PO SCH (08:19)
[2019-02-27] MEDS: Cyanocobalamin (Vitamin B12) 1,000 MCG Tab PO SCH (08:19)
[2019-02-27] MEDS: Calcium Carbonate 750 MG Tab.Chew PO PRN (09:30)
[2019-02-27] MEDS: Simvastatin 10 MG Tab PO SCH (19:35)
[2019-02-27] MEDS: buPROPion 100 MG Tab PO SCH (19:35)
[2019-02-27] MEDS: LEVOTHYROXINE SODIUM 137 MCG PO SCH (19:35)
[2019-02-28] MEDS: Fludrocortisone 0.1 MG Tab PO SCH ×2 (07:55→19:18)
[2019-02-28] MEDS: Furosemide 20 MG Tab PO SCH (07:55)
[2019-02-28] MEDS: Citalopram 20 MG Tab PO SCH (07:55)
[2019-02-28] MEDS: Metoclopramide 10 MG Tab PO SCH ×2 (07:55→17:57)
[2019-02-28] MEDS: Ibuprofen 600 MG Tab PO SCH ×2 (07:56→17:57)
[2019-02-28] MEDS: Niacin 500 MG Tab PO SCH ×2 (07:56→17:58)
[2019-02-28] MEDS: Potassium Chloride 10% 20 MEQ/15 ML Soln 15 ML UD Cup PO SCH ×3 (07:59→19:19)
[2019-02-28] MEDS: Cyanocobalamin (Vitamin B12) 1,000 MCG Tab PO SCH (08:00)
[2019-02-28] MEDS: Cholecalciferol (Vitamin D3) 25 MCG Tab PO SCH (08:00)
[2019-02-28] MEDS: Albuterol/Ipratropium 3.0-0.5 MG/3 ML Neb Soln NEB SCH ×2 (08:11→19:17)
[2019-02-28] MEDS: LEVOTHYROXINE SODIUM 137 MCG PO SCH (19:18)
[2019-02-28] MEDS: Simvastatin 10 MG Tab PO SCH (19:18)
[2019-02-28] MEDS: buPROPion 100 MG Tab PO SCH (19:18)
[2019-03-01] MEDS: Citalopram 20 MG Tab PO SCH (07:56)
[2019-03-01] MEDS: Fludrocortisone 0.1 MG Tab PO SCH ×2 (07:56→19:09)
[2019-03-01] MEDS: Ibuprofen 600 MG Tab PO SCH ×2 (07:56→17:53)
[2019-03-01] MEDS: Metoclopramide 10 MG Tab PO SCH ×2 (07:56→17:53)
[2019-03-01] MEDS: Furosemide 20 MG Tab PO SCH (07:56)
[2019-03-01] MEDS: Cholecalciferol (Vitamin D3) 25 MCG Tab PO SCH (07:57)
[2019-03-01] MEDS: Cyanocobalamin (Vitamin B12) 1,000 MCG Tab PO SCH (07:57)
[2019-03-01] MEDS: Niacin 500 MG Tab PO SCH ×2 (07:57→17:53)
[2019-03-01] MEDS: Potassium Chloride 10% 20 MEQ/15 ML Soln 15 ML UD Cup PO SCH ×3 (07:57→19:09)
[2019-03-01] MEDS: Albuterol/Ipratropium 3.0-0.5 MG/3 ML Neb Soln NEB SCH ×2 (07:59→19:10)
[2019-03-01] MEDS: buPROPion 100 MG Tab PO SCH (19:09)
[2019-03-01] MEDS: LEVOTHYROXINE SODIUM 137 MCG PO SCH (19:09)
[2019-03-01] MEDS: Simvastatin 10 MG Tab PO SCH (19:09)
[2019-03-02] MEDS: Metoclopramide 10 MG Tab PO SCH ×2 (07:13→17:10)
[2019-03-02] MEDS: Albuterol/Ipratropium 3.0-0.5 MG/3 ML Neb Soln NEB SCH ×2 (07:13→19:03)
[2019-03-02] MEDS: Citalopram 20 MG Tab PO SCH (07:13)
[2019-03-02] MEDS: Fludrocortisone 0.1 MG Tab PO SCH ×2 (07:14→19:03)
[2019-03-02] MEDS: Niacin 500 MG Tab PO SCH ×2 (07:14→17:11)
[2019-03-02] MEDS: Ibuprofen 600 MG Tab PO SCH ×2 (07:14→17:11)
[2019-03-02] MEDS: Furosemide 20 MG Tab PO SCH (07:14)
[2019-03-02] MEDS: Cyanocobalamin (Vitamin B12) 1,000 MCG Tab PO SCH (07:15)
[2019-03-02] MEDS: Cholecalciferol (Vitamin D3) 25 MCG Tab PO SCH (07:15)
[2019-03-02] MEDS: Potassium Chloride 10% 20 MEQ/15 ML Soln 15 ML UD Cup PO SCH ×3 (07:15→19:03)
[2019-03-02] MEDS: Simvastatin 10 MG Tab PO SCH (19:03)
[2019-03-02] MEDS: LEVOTHYROXINE SODIUM 137 MCG PO SCH (19:03)
[2019-03-02] MEDS: buPROPion 100 MG Tab PO SCH (19:03)
[2019-03-03] MEDS: Metoclopramide 10 MG Tab PO SCH ×2 (07:20→17:10)
[2019-03-03] MEDS: Citalopram 20 MG Tab PO SCH (07:20)
[2019-03-03] MEDS: Potassium Chloride 10% 20 MEQ/15 ML Soln 15 ML UD Cup PO SCH ×3 (07:20→19:49)
[2019-03-03] MEDS: Ibuprofen 600 MG Tab PO SCH ×2 (07:21→17:10)
[2019-03-03] MEDS: Furosemide 20 MG Tab PO SCH (07:21)
[2019-03-03] MEDS: Albuterol/Ipratropium 3.0-0.5 MG/3 ML Neb Soln NEB SCH ×2 (07:21→19:48)
[2019-03-03] MEDS: Fludrocortisone 0.1 MG Tab PO SCH ×2 (07:21→19:48)
[2019-03-03] MEDS: Cholecalciferol (Vitamin D3) 25 MCG Tab PO SCH (07:22)
[2019-03-03] MEDS: Niacin 500 MG Tab PO SCH ×2 (07:22→17:11)
[2019-03-03] MEDS: Cyanocobalamin (Vitamin B12) 1,000 MCG Tab PO SCH (07:22)
[2019-03-03] MEDS: LEVOTHYROXINE SODIUM 137 MCG PO SCH (19:48)
[2019-03-03] MEDS: Simvastatin 10 MG Tab PO SCH (19:49)
[2019-03-03] MEDS: buPROPion 100 MG Tab PO SCH (19:49)
[2019-03-03] MEDS: Calcium Carbonate 750 MG Tab.Chew PO PRN (20:40)
[2019-03-04] MEDS: Albuterol/Ipratropium 3.0-0.5 MG/3 ML Neb Soln NEB SCH ×2 (07:19→19:53)
[2019-03-04] MEDS: Metoclopramide 10 MG Tab PO SCH ×2 (07:19→17:06)
[2019-03-04] MEDS: Citalopram 20 MG Tab PO SCH (07:19)
[2019-03-04] MEDS: Fludrocortisone 0.1 MG Tab PO SCH ×2 (07:19→19:53)
[2019-03-04] MEDS: Furosemide 20 MG Tab PO SCH (07:19)
[2019-03-04] MEDS: Ibuprofen 600 MG Tab PO SCH ×2 (07:19→17:07)
[2019-03-04] MEDS: Potassium Chloride 10% 20 MEQ/15 ML Soln 15 ML UD Cup PO SCH ×3 (07:20→19:54)
[2019-03-04] MEDS: Niacin 500 MG Tab PO SCH ×2 (07:20→17:07)
[2019-03-04] MEDS: Cyanocobalamin (Vitamin B12) 1,000 MCG Tab PO SCH (07:21)
[2019-03-04] MEDS: Cholecalciferol (Vitamin D3) 25 MCG Tab PO SCH (07:21)
[2019-03-04] MEDS: buPROPion 100 MG Tab PO SCH (19:54)
[2019-03-04] MEDS: Simvastatin 10 MG Tab PO SCH (19:54)
[2019-03-04] MEDS: LEVOTHYROXINE SODIUM 137 MCG PO SCH (19:54)
[2019-03-05] MEDS: Citalopram 20 MG Tab PO SCH (08:12)
[2019-03-05] MEDS: Furosemide 20 MG Tab PO SCH (08:12)
[2019-03-05] MEDS: Fludrocortisone 0.1 MG Tab PO SCH ×2 (08:12→19:27)
[2019-03-05] MEDS: Metoclopramide 10 MG Tab PO SCH ×2 (08:12→18:04)
[2019-03-05] MEDS: Ibuprofen 600 MG Tab PO SCH ×2 (08:12→18:04)
[2019-03-05] MEDS: Albuterol/Ipratropium 3.0-0.5 MG/3 ML Neb Soln NEB SCH ×2 (08:13→19:27)
[2019-03-05] MEDS: Niacin 500 MG Tab PO SCH ×2 (08:13→18:04)
[2019-03-05] MEDS: Potassium Chloride 10% 20 MEQ/15 ML Soln 15 ML UD Cup PO SCH ×3 (08:13→19:28)
[2019-03-05] MEDS: Cholecalciferol (Vitamin D3) 25 MCG Tab PO SCH (08:14)
[2019-03-05] MEDS: Cyanocobalamin (Vitamin B12) 1,000 MCG Tab PO SCH (08:15)
[2019-03-05] MEDS: LEVOTHYROXINE SODIUM 137 MCG PO SCH (19:27)
[2019-03-05] MEDS: Simvastatin 10 MG Tab PO SCH (19:27)
[2019-03-05] MEDS: buPROPion 100 MG Tab PO SCH (19:27)
[2019-03-06] MEDS: Citalopram 20 MG Tab PO SCH (08:12)
[2019-03-06] MEDS: Metoclopramide 10 MG Tab PO SCH ×2 (08:12→17:58)
[2019-03-06] MEDS: Ibuprofen 600 MG Tab PO SCH ×2 (08:13→17:59)
[2019-03-06] MEDS: Albuterol/Ipratropium 3.0-0.5 MG/3 ML Neb Soln NEB SCH ×2 (08:13→19:32)
[2019-03-06] MEDS: Furosemide 20 MG Tab PO SCH (08:13)
[2019-03-06] MEDS: Fludrocortisone 0.1 MG Tab PO SCH ×2 (08:13→19:32)
[2019-03-06] MEDS: Niacin 500 MG Tab PO SCH ×2 (08:14→17:59)
[2019-03-06] MEDS: Potassium Chloride 10% 20 MEQ/15 ML Soln 15 ML UD Cup PO SCH ×3 (08:15→19:33)
[2019-03-06] MEDS: Cyanocobalamin (Vitamin B12) 1,000 MCG Tab PO SCH (08:16)
[2019-03-06] MEDS: Cholecalciferol (Vitamin D3) 25 MCG Tab PO SCH (08:16)
[2019-03-06] MEDS: LEVOTHYROXINE SODIUM 137 MCG PO SCH (19:32)
[2019-03-06] MEDS: buPROPion 100 MG Tab PO SCH (19:33)
[2019-03-06] MEDS: Simvastatin 10 MG Tab PO SCH (19:33)
[2019-03-07] MEDS: Metoclopramide 10 MG Tab PO SCH ×2 (08:01→17:22)
[2019-03-07] MEDS: Citalopram 20 MG Tab PO SCH (08:01)
[2019-03-07] MEDS: Ibuprofen 600 MG Tab PO SCH ×2 (08:02→17:22)
[2019-03-07] MEDS: Furosemide 20 MG Tab PO SCH (08:02)
[2019-03-07] MEDS: Albuterol/Ipratropium 3.0-0.5 MG/3 ML Neb Soln NEB SCH ×2 (08:02→19:02)
[2019-03-07] MEDS: Fludrocortisone 0.1 MG Tab PO SCH ×2 (08:02→19:02)
[2019-03-07] MEDS: Potassium Chloride 10% 20 MEQ/15 ML Soln 15 ML UD Cup PO SCH ×3 (08:03→19:03)
[2019-03-07] MEDS: Niacin 500 MG Tab PO SCH ×2 (08:03→17:23)
[2019-03-07] MEDS: Cyanocobalamin (Vitamin B12) 1,000 MCG Tab PO SCH (08:04)
[2019-03-07] MEDS: Cholecalciferol (Vitamin D3) 25 MCG Tab PO SCH (08:05)
[2019-03-07] MEDS: buPROPion 100 MG Tab PO SCH (19:02)
[2019-03-07] MEDS: LEVOTHYROXINE SODIUM 137 MCG PO SCH (19:02)
[2019-03-07] MEDS: Simvastatin 10 MG Tab PO SCH (19:03)
[2019-03-08] MEDS: Albuterol/Ipratropium 3.0-0.5 MG/3 ML Neb Soln NEB SCH ×2 (07:21→19:29)
[2019-03-08] MEDS: Potassium Chloride 10% 20 MEQ/15 ML Soln 15 ML UD Cup PO SCH ×3 (07:23→19:30)
[2019-03-08] MEDS: Metoclopramide 10 MG Tab PO SCH ×2 (07:23→17:16)
[2019-03-08] MEDS: Niacin 500 MG Tab PO SCH ×2 (07:24→17:16)
[2019-03-08] MEDS: Citalopram 20 MG Tab PO SCH (07:24)
[2019-03-08] MEDS: Fludrocortisone 0.1 MG Tab PO SCH ×2 (07:24→19:29)
[2019-03-08] MEDS: Furosemide 20 MG Tab PO SCH (07:24)
[2019-03-08] MEDS: Ibuprofen 600 MG Tab PO SCH ×2 (07:24→17:16)
[2019-03-08] MEDS: Cholecalciferol (Vitamin D3) 25 MCG Tab PO SCH (07:25)
[2019-03-08] MEDS: Cyanocobalamin (Vitamin B12) 1,000 MCG Tab PO SCH (07:25)
--- NOTE | 2019-03-08 09:30 | PCM.PN ---
- General Info Date of Service: 03/08/19 Admission Dx/Problem (Free Text): Myotonic dystrophy Functional Status: Reports: Pain Controlled, Tolerating Diet, Ambulating, Urinating, Incentive Spirometry. Denies: New Symptoms Pain Score: 0 - Review of Systems General: Reports: Weakness (Stable chronic), Fatigue (Stable chronic). Denies: Fever, Malaise, Chills, Night Sweats, Appetite (Good) HEENT: Reports: No Symptoms, Other (Complete dentures uppers and lowers). Denies: Dysphasia, Ear Pain, Eye Pain, Headaches, Sinus Congestion, Sore Throat , Rhinitis, Visual Changes Pulmonary: Reports: No Symptoms. Denies: Shortness of Breath, Pleuritic Chest Pain, Cough, Sputum, Wheezing Cardiovascular: Reports: Edema (Stable chronic dependent). Denies: Chest Pain, Palpitations, Dyspnea on Exertion, Orthopnea, Lightheadedness Gastrointestinal: Reports: No Symptoms. Denies: Abdominal Pain, Constipation, Decreased Appetite, Diarrhea, Difficulty Swallowing, Flatus, Hematochezia, Melena, Nausea, Vomiting Genitourinary: Reports: No Symptoms. Denies: Frequency, Burning, Pain, Urgency , Incontinence, Hematuria, Retention, Flank Pain Musculoskeletal: Reports: No Symptoms. Denies: Neck Pain, Shoulder Pain, Arm Pain, Back Pain, Leg Pain, Foot Pain, Joint Pain Skin: Reports: No Symptoms. Denies: Pallor, Diaphoresis, Bruising Neurological: Reports: Pre-Existing Deficit (Stable chronic), Difficulty Walking (Stable chronic), Weakness (Stable chronic). Denies: Confusion, Dizziness, Headache, Numbness, Paresthesia, Tingling, Change in Speech Psychiatric: Reports: No Symptoms. Denies: Confusion, Depression, Anxiety, Agitation, Cravings, Hallucinations, Suicidal Ideation, Homicidal Ideation - Patient Data Vitals - Most Recent: Last Vital Signs Temp 36.6 C 03/02/19 08:00 Pulse 63 03/02/19 08:00 Resp 16 03/02/19 08:00 BP 107/55 L 03/02/19 08:00 Pulse Ox 92 L 03/02/19 08:00 Weight - Most Recent: 102.104 kg I&O - Last 24 Hours: Intake & Output 03/07/19 03/08/19 03/08/19 22:59 06:59 14:59 Intake Total 640 Balance 640 Imaging Impressions - Last 24 Hours: None Lab Results Last 24 Hours: None Sandor Results Last 24 Hours: None Med Orders - Current: Current Medications Acetaminophen (Tylenol) 650 mg PO Q4H PRN PRN Reason: Pain Last Admin: 02/10/19 00:23 Dose: 650 mg Al Hydroxide/Mg Hydroxide (Mag-Al Plus) 30 ml PO Q4H PRN PRN Reason: Indigestion Albuterol/Ipratropium (Duoneb 3.0-0.5 Mg/3 Ml) 3 ml NEB BIDRT [facility] Last Admin: 03/08/19 07:21 Dose: 3 ml Albuterol/Ipratropium (Duoneb 3.0-0.5 Mg/3 Ml) 3 ml NEB Q4HRRT PRN PRN Reason: Dyspnea Last Admin: 12/29/18 00:16 Dose: 3 ml Bupropion HCl (Wellbutrin) 150 mg PO BEDTIME [facility] Last Admin: 03/07/19 19:02 Dose: 150 mg Calcium Carbonate/Glycine (Tums Extra Strength) 750 mg PO Q2HR PRN PRN Reason: Indigestion Last Admin: 03/03/19 20:40 Dose: 750 mg Cholecalciferol (Vitamin D3) 1,000 units PO QAM [facility] Last Admin: 03/08/19 07:25 Dose: 1,000 units Citalopram Hydrobromide (Celexa) 20 mg PO QAM [facility] Last Admin: 03/08/19 07:24 Dose: 20 mg Clotrimazole (Lotrimin Af 1% Crm) 1 gm TOP BID PRN PRN Reason: Rash Last Admin: 07/18/18 08:50 Dose: 1 applic Cyanocobalamin (Vitamin B12) 1,000 mcg PO QAM [facility] Last Admin: 03/08/19 07:25 Dose: 1,000 mcg Diphenhydramine HCl (Benadryl) 25 mg PO Q4H PRN PRN Reason: Itching Fludrocortisone Acetate (Florinef) 0.1 mg PO BEDTIME [facility] Last Admin: 03/07/19 19:02 Dose: 0.1 mg Fludrocortisone Acetate (Florinef) 0.2 mg PO QAM [facility] Last Admin: 03/08/19 07:24 Dose: 0.2 mg Furosemide (Lasix) 20 mg PO DAILY [facility] Last Admin: 03/08/19 07:24 Dose: 20 mg Guaifenesin/Dextromethorphan (Robitussin Dm) 10 ml PO Q4H PRN PRN Reason: Cough Last Admin: 12/29/18 00:27 Dose: 10 ml Ibuprofen (Motrin) 600 mg PO BID [facility] Last Admin: 03/08/19 07:24 Dose: 600 mg Ibuprofen (Motrin) 600 mg PO Q6H PRN PRN Reason: Breakthrough Pain Last Admin: 12/08/18 19:31 Dose: 600 mg Metoclopramide HCl (Reglan) 10 mg PO BIDAC [facility] Last Admin: 03/08/19 07:23 Dose: 10 mg Niacin (Niacin) 500 mg PO BID [facility] Last Admin: 03/08/19 07:24 Dose: 500 mg Levothyroxine Sodium (137 Mcg Tablets) 137 mcg PO BEDTIME [facility] Last Admin: 03/07/19 19:02 Dose: 137 mcg Potassium Chloride (Potassium Chloride Solution) 40 meq PO TID@08,14,20 [facility] Last Admin: 03/08/19 07:23 Dose: 40 meq Simvastatin (Zocor) 10 mg PO BEDTIME [facility] Last Admin: 03/07/19 19:03 Dose: 10 mg Discontinued Medications Carbamide Perox/Anhydrous Glycerin (Debrox 6.5% Otic Soln) 0 ml EARBOTH BID [facility] Stop: 01/29/19 18:00 Last Admin: 01/29/19 19:25 Dose: 5 drop Chlorhexidine Gluconate (Peridex 0.12% Rinse) 15 ml MUCMEM BID@09,20 [facility] Last Admin: 05/12/18 08:41 Dose: 15 ml Diphenoxylate HCl/Atropine (Lomotil 0.025-2.5 Mg) 1 tab PO QID PRN PRN Reason: Diarrhea Last Admin: 02/09/18 09:50 Dose: 1 tab Furosemide (Lasix) 40 mg IM NOW ONE Stop: 12/10/17 11:52 Last Admin: 12/10/17 13:10 Dose: 40 mg Gentian Annita (Gentian Annita) 1 ml TOP DAILY PRN PRN Reason: Rash Stop: 07/28/18 20:00 Last Admin: 07/24/18 19:49 Dose: 1 applic Lactobacillus Rhamnosus (Culturelle) 2 cap PO BID [facility] Stop: 03/02/18 18:00 Last Admin: 03/02/18 17:10 Dose: 2 cap Metronidazole (Flagyl) 500 mg PO Q8H [facility] Stop: 02/26/18 14:01 Last Admin: 02/26/18 14:14 Dose: 500 mg Metronidazole (Flagyl) 500 mg PO TID [facility] Stop: 05/22/18 18:01 Last Admin: 05/22/18 17:55 Dose: Not Given Metronidazole (Flagyl) 500 mg PO Q8H [facility] Stop: 10/03/18 06:01 Last Admin: 10/03/18 06:02 Dose: 500 mg Cephalexin (Keflex) (500 Mg Capsules) 500 mg PO BID [facility] Last Admin: 03/11/18 07:56 Dose: 500 mg Fluconazole 150mg (Tablet) 1 each PO Q3D [facility] Stop: 12/06/17 20:01 Last Admin: 12/06/17 19:13 Dose: 1 each Fluconazole 150mg (Tab Ptom) 1 each PO ONETIME ONE Stop: 02/24/19 18:01 Last Admin: 02/24/19 17:19 Dose: 1 each Nystatin (Mycostatin) 5 ml PO QID [facility] Stop: 05/19/18 16:01 Last Admin: 05/19/18 16:00 Dose: 5 ml Omeprazole (Omeprazole) 20 mg PO DAILY [facility] Last Admin: 03/11/18 07:55 Dose: 20 mg Potassium Chloride (Klor-Con M20) 20 meq PO ONETIME ONE Stop: 12/10/17 11:53 Last Admin: 12/10/17 13:10 Dose: 20 meq Potassium Chloride (Klor-Con M20) 20 meq PO DAILY [facility] Tramadol HCl (Ultram) 50 mg PO Q6H PRN PRN Reason: Pain (severe 7-10) Last Admin: 10/28/18 08:04 Dose: 50 mg - Exam Quality Assessment: Supplemental Oxygen, DVT Prophylaxis. No: Central Line/PICC , Urine Catheter, Skin Breakdown, Restraints General: Alert, Oriented, Cooperative, No Acute Distress HEENT: Pupils Equal, Pupils Reactive, EOMI, Mucous Membr. Moist/[place], Other ( Complete dentures uppers and lowers) Neck: Supple, Trachea Midline, No JVD, No Thyromegaly. No: Lymphadenopathy Lungs: Clear to Auscultation, Normal Respiratory Effort. No: Rub Cardiovascular: Regular Rate, Regular Rhythm, No Murmurs. No: Gallops, Rubs GI/Abdominal Exam: Normal Bowel Sounds, Soft, Non-Tender, No Organomegaly, No Distention, No Abnormal Bruit, No Mass, Pelvis Stable, Other (Obese). No: Guarding (Female) Exam: Deferred Back Exam: Normal Inspection, Full Range of Motion. No: CVA Tenderness (L), CVA Tenderness (R), Muscle Spasm Extremities: Non-Tender, Normal Capillary Refill, Pedal Edema (Stable dependent mild lymphedema of the lower extremities). No: Lurdes's Sign Peripheral Pulses: 2+: Radial (L), Radial (R), Dorsalis Pedis (L), Dorsalis Pedis (R) Skin: Warm, Dry, Intact. No: Ecchymosis Neurological: No New Focal Deficit, Other (No clinical orthostasis, stable generalized weakness) Psy/Mental Status: Alert, Normal Affect, Normal Mood. No: Agitated, Hallucinations, Withdrawal Symptoms - Problem List & Annotations (1) Steinert myotonic dystrophy syndrome SNOMED Code(s): 09910796 Code(s): G71.11 - MYOTONIC MUSCULAR DYSTROPHY Status: Chronic Priority: Medium Current Visit: Yes Annotation/Comment:: Stable by history and today' s exam. Physical therapy in effect. Blood work and yearly labs due in 2 months. Continue current medical therapy. (2) CHF, Congestive heart failure SNOMED Code(s): 65399364 Code(s): I50.9 - HEART FAILURE, UNSPECIFIED Status: Chronic Priority: Medium Current Visit: Yes Annotation/Comment:: Stable by clinical exam and history. Stable dependent edema since 12/10/17. Note weight gain continues to be variable secondary to dietary noncompliance, however no direct evidence of significant weight gain or CHF as above. Note previous discontinuation of high protein Glucerna supplements as snacks. Note, however, dietary noncompliance is still an issue. Dietary consultation in effect. Activity level is overall low. Continue to observe closely. No recent anginal complaints or current clinical evidence of CHF. Note previous history of PVCs, complete right bundle branch block/bifascicular bundle-branch block, first-degree AV block, severe dyslipidemia hypokalemia, hypophosphatemia, and hyponatremia. Continue to observe for now with no further change in medical therapy. (3) COPD (chronic obstructive pulmonary disease) SNOMED Code(s): 76206320 Code(s): J44.9 - CHRONIC OBSTRUCTIVE PULMONARY DISEASE, UNSPECIFIED Status : Chronic Priority: Medium Current Visit: Yes Qualifiers: COPD type: unspecified COPD Qualified Code(s): J44.9 - Chronic obstructive pulmonary disease, unspecified Annotation/Comment:: O2 dependent COPD stable by history with no bronchitic symptoms at this time. Continue current medical therapy. Patient does have a previous history of distant postoperative respiratory distress, although no complications after previous dental surgery. (4) Hyperglycemia SNOMED Code(s): 71723473 Code(s): R73.9 - HYPERGLYCEMIA, UNSPECIFIED Status: Chronic Priority: Medium Current Visit: Yes Onset Date: 06/29/15 Annotation/Comment:: Note persistent dietary noncompliance with variable weights as above. Dietary consultation is in effect as above. Blood work reviewed today as above with normal Glycosylated hemoglobin. (5) Hyperlipidemia SNOMED Code(s): 60465503 Code(s): E78.5 - HYPERLIPIDEMIA, UNSPECIFIED Status: Chronic Priority: Medium Current Visit: Yes Annotation/Comment:: Previous history of severe dyslipidemia with aggressive medical therapy at this time. Dietary compliance once again strongly encouraged with additional 0.8 kg weight gain during the last 2 months and a 1.8 kg weight gain over the last 4 months. Repeat lipid panel in 2 months with previous lipid panel on 04/29/18 relatively stable. (6) Hypothyroidism SNOMED Code(s): 38834147 Code(s): E03.9 - HYPOTHYROIDISM, UNSPECIFIED Status: Chronic Priority: Medium Current Visit: Yes Annotation/Comment:: TSH normal on 04/29/18. No other thyroid type symptoms. TSH in 2 months. (7) Mixed anxiety and depressive disorder SNOMED Code(s): 685303433 Code(s): F41.8 - OTHER SPECIFIED ANXIETY DISORDERS Status: Chronic Priority: Medium Current Visit: Yes Annotation/Comment:: Stable by history. Patient is still relatively active with physical therapy, social activities, etc.. Continue to observe closely by nursing staff with no significant depression at this time with patient often alone in her room. (8) Osteoarthritis SNOMED Code(s): 686064859 Code(s): M19.90 - UNSPECIFIED OSTEOARTHRITIS, UNSPECIFIED SITE Status: Chronic Priority: Medium Current Visit: Yes Annotation/Comment:: No complaints today with previous intermittent mild generalized arthralgias, however nonproblematic at this time with the patient nonsymptomatic despite discontinuation of Ultram. PT in effect as above. Note status post bilateral ankle ORIF secondary to fractures. (9) UTI (urinary tract infection) SNOMED Code(s): 40107362 Code(s): N39.0 - URINARY TRACT INFECTION, SITE NOT SPECIFIED Status: Chronic Priority: Medium Current Visit: Yes Qualifiers: Hematuria presence: without hematuria Annotation/Comment:: Long History of recurrent UTIs. No current UTI symptoms despite previous discontinuation of Keflex therapy for previous recurrent UTIs. Note subsequent recurrent C. difficile infection, which has since resolved by clinical exam. Continue to observe for now with no reinitiation of antibiotic therapy. (10) C. difficile colitis SNOMED Code(s): 344508533 Code(s): A04.72 - ENTEROCOLITIS D/T CLOSTRIDIUM DIFFICILE, NOT SPCF RECUR Status: Chronic Priority: Medium Current Visit: Yes Onset Date: Annotation/Comment:: No recent diarrhea, etc. or evidence of recurrence. Central laboratories previously refused repeat stool C. difficile analysis since the patient no longer has diarrhea and that this evaluation may remain positive for several months. This issue was previously brought up in medical staff for further review and discussion with no further follow-up at this time. In the meantime strict disinfection of patient's room, clothing, etc. has been conducted. Suspect that the patient may be a carrier. Continue to observe closely, however. (11) Gastroesophageal reflux disease SNOMED Code(s): 207891162 Code(s): K21.9 - GASTRO-ESOPHAGEAL REFLUX DISEASE WITHOUT ESOPHAGITIS Status: Acute Priority: Medium Current Visit: Yes Annotation/Comment:: Stable by history with no abdominal complaints and attempt to taper patient off of Prilosec. (12) Hypoalbuminemia SNOMED Code(s): 351043300 Code(s): E88.09 - OTH DISORDERS OF PLASMA-PROTEIN METABOLISM, NEC Status: Chronic Priority: Medium Current Visit: Yes Annotation/Comment:: Glucerna high-protein has been discontinued per recommendations from dietitian secondary to persistent weight gain. Continue high-protein diet as above. Observe for now. - Problem List Review Problem List Initiated/Reviewed/Updated: Yes - My Orders Last 24 Hours: My Active Orders 04/28/19 13:00 Screening Tomosynthesis Bi [MY] Routine - Assessment Assessment:: As above - Plan Plan:: As above. The patient is recertified for swing bed care for an additional 2 months. Yearly Blood work, etc. to be repeated in 2 months. Note that mammogram report from 11/05/18 was reviewed with stable findings and recommended repeat mammogram in 6 months, which has already been scheduled for April 2019.. Extensive precautions were given to the patient, who is in agreement with the treatment plan.
[2019-03-08] MEDS: buPROPion 100 MG Tab PO SCH (19:29)
[2019-03-08] MEDS: Simvastatin 10 MG Tab PO SCH (19:29)
[2019-03-08] MEDS: LEVOTHYROXINE SODIUM 137 MCG PO SCH (19:29)
[2019-03-09] MEDS: Citalopram 20 MG Tab PO SCH (08:11)
[2019-03-09] MEDS: Fludrocortisone 0.1 MG Tab PO SCH ×2 (08:11→19:33)
[2019-03-09] MEDS: Ibuprofen 600 MG Tab PO SCH ×2 (08:11→18:09)
[2019-03-09] MEDS: Furosemide 20 MG Tab PO SCH (08:11)
[2019-03-09] MEDS: Potassium Chloride 10% 20 MEQ/15 ML Soln 15 ML UD Cup PO SCH ×3 (08:12→19:34)
[2019-03-09] MEDS: Metoclopramide 10 MG Tab PO SCH ×2 (08:12→18:08)
[2019-03-09] MEDS: Cholecalciferol (Vitamin D3) 25 MCG Tab PO SCH (08:13)
[2019-03-09] MEDS: Niacin 500 MG Tab PO SCH ×2 (08:13→18:09)
[2019-03-09] MEDS: Albuterol/Ipratropium 3.0-0.5 MG/3 ML Neb Soln NEB SCH ×2 (08:14→19:33)
[2019-03-09] MEDS: Cyanocobalamin (Vitamin B12) 1,000 MCG Tab PO SCH (08:14)
[2019-03-09] MEDS: LEVOTHYROXINE SODIUM 137 MCG PO SCH (19:34)
[2019-03-09] MEDS: buPROPion 100 MG Tab PO SCH (19:34)
[2019-03-09] MEDS: Simvastatin 10 MG Tab PO SCH (19:34)
[2019-03-10] MEDS: Acetaminophen 325 MG Tab PO PRN ×2 (02:28→13:06)
[2019-03-10] MEDS: Ibuprofen 600 MG Tab PO SCH ×2 (08:15→18:01)
[2019-03-10] MEDS: Metoclopramide 10 MG Tab PO SCH ×2 (08:15→18:02)
[2019-03-10] MEDS: Albuterol/Ipratropium 3.0-0.5 MG/3 ML Neb Soln NEB SCH ×2 (08:16→19:34)
[2019-03-10] MEDS: Furosemide 20 MG Tab PO SCH (08:16)
[2019-03-10] MEDS: Fludrocortisone 0.1 MG Tab PO SCH ×2 (08:16→19:35)
[2019-03-10] MEDS: Citalopram 20 MG Tab PO SCH (08:16)
[2019-03-10] MEDS: Niacin 500 MG Tab PO SCH ×2 (08:16→18:02)
[2019-03-10] MEDS: Potassium Chloride 10% 20 MEQ/15 ML Soln 15 ML UD Cup PO SCH ×3 (08:17→19:36)
[2019-03-10] MEDS: Cholecalciferol (Vitamin D3) 25 MCG Tab PO SCH (08:17)
[2019-03-10] MEDS: Cyanocobalamin (Vitamin B12) 1,000 MCG Tab PO SCH (08:17)
[2019-03-10] MEDS: Simvastatin 10 MG Tab PO SCH (19:35)
[2019-03-10] MEDS: buPROPion 100 MG Tab PO SCH (19:35)
[2019-03-10] MEDS: LEVOTHYROXINE SODIUM 137 MCG PO SCH (19:35)
[2019-03-11] MEDS: Citalopram 20 MG Tab PO SCH (07:57)
[2019-03-11] MEDS: Ibuprofen 600 MG Tab PO SCH ×2 (07:57→17:52)
[2019-03-11] MEDS: Furosemide 20 MG Tab PO SCH (07:57)
[2019-03-11] MEDS: Fludrocortisone 0.1 MG Tab PO SCH ×2 (07:57→19:05)
[2019-03-11] MEDS: Albuterol/Ipratropium 3.0-0.5 MG/3 ML Neb Soln NEB SCH ×2 (07:58→19:04)
[2019-03-11] MEDS: Metoclopramide 10 MG Tab PO SCH ×2 (07:58→17:52)
[2019-03-11] MEDS: Niacin 500 MG Tab PO SCH ×2 (07:58→17:52)
[2019-03-11] MEDS: Cyanocobalamin (Vitamin B12) 1,000 MCG Tab PO SCH (07:58)
[2019-03-11] MEDS: Cholecalciferol (Vitamin D3) 25 MCG Tab PO SCH (07:59)
[2019-03-11] MEDS: Potassium Chloride 10% 20 MEQ/15 ML Soln 15 ML UD Cup PO SCH ×3 (07:59→19:06)
[2019-03-11] MEDS: Simvastatin 10 MG Tab PO SCH (19:05)
[2019-03-11] MEDS: LEVOTHYROXINE SODIUM 137 MCG PO SCH (19:05)
[2019-03-11] MEDS: buPROPion 100 MG Tab PO SCH (19:05)
[2019-03-12] MEDS: Albuterol/Ipratropium 3.0-0.5 MG/3 ML Neb Soln NEB SCH ×2 (07:16→19:01)
[2019-03-12] MEDS: Fludrocortisone 0.1 MG Tab PO SCH ×2 (07:16→19:02)
[2019-03-12] MEDS: Citalopram 20 MG Tab PO SCH (07:16)
[2019-03-12] MEDS: Metoclopramide 10 MG Tab PO SCH ×2 (07:16→17:25)
[2019-03-12] MEDS: Ibuprofen 600 MG Tab PO SCH ×2 (07:17→17:25)
[2019-03-12] MEDS: Niacin 500 MG Tab PO SCH ×2 (07:17→17:25)
[2019-03-12] MEDS: Furosemide 20 MG Tab PO SCH (07:17)
[2019-03-12] MEDS: Potassium Chloride 10% 20 MEQ/15 ML Soln 15 ML UD Cup PO SCH ×3 (07:18→19:03)
[2019-03-12] MEDS: Cholecalciferol (Vitamin D3) 25 MCG Tab PO SCH (07:18)
[2019-03-12] MEDS: Cyanocobalamin (Vitamin B12) 1,000 MCG Tab PO SCH (07:18)
[2019-03-12] MEDS: buPROPion 100 MG Tab PO SCH (19:02)
[2019-03-12] MEDS: LEVOTHYROXINE SODIUM 137 MCG PO SCH (19:02)
[2019-03-12] MEDS: Simvastatin 10 MG Tab PO SCH (19:02)
[2019-03-13] MEDS: Albuterol/Ipratropium 3.0-0.5 MG/3 ML Neb Soln NEB SCH ×2 (07:27→20:18)
[2019-03-13] MEDS: Metoclopramide 10 MG Tab PO SCH ×2 (07:27→17:13)
[2019-03-13] MEDS: Fludrocortisone 0.1 MG Tab PO SCH ×2 (07:28→20:19)
[2019-03-13] MEDS: Citalopram 20 MG Tab PO SCH (07:28)
[2019-03-13] MEDS: Ibuprofen 600 MG Tab PO SCH ×2 (07:28→17:13)
[2019-03-13] MEDS: Furosemide 20 MG Tab PO SCH (07:28)
[2019-03-13] MEDS: Niacin 500 MG Tab PO SCH ×2 (07:28→17:13)
[2019-03-13] MEDS: Cholecalciferol (Vitamin D3) 25 MCG Tab PO SCH (07:30)
[2019-03-13] MEDS: Potassium Chloride 10% 20 MEQ/15 ML Soln 15 ML UD Cup PO SCH ×3 (07:30→20:19)
[2019-03-13] MEDS: Cyanocobalamin (Vitamin B12) 1,000 MCG Tab PO SCH (07:30)
[2019-03-13] MEDS: buPROPion 100 MG Tab PO SCH (20:19)
[2019-03-13] MEDS: LEVOTHYROXINE SODIUM 137 MCG PO SCH (20:19)
[2019-03-13] MEDS: Simvastatin 10 MG Tab PO SCH (20:19)
[2019-03-14] MEDS: Fludrocortisone 0.1 MG Tab PO SCH ×2 (07:54→20:04)
[2019-03-14] MEDS: Albuterol/Ipratropium 3.0-0.5 MG/3 ML Neb Soln NEB SCH ×2 (07:54→20:04)
[2019-03-14] MEDS: Citalopram 20 MG Tab PO SCH (07:54)
[2019-03-14] MEDS: Metoclopramide 10 MG Tab PO SCH ×2 (07:54→17:53)
[2019-03-14] MEDS: Ibuprofen 600 MG Tab PO SCH ×2 (07:55→17:53)
[2019-03-14] MEDS: Furosemide 20 MG Tab PO SCH (07:55)
[2019-03-14] MEDS: Niacin 500 MG Tab PO SCH ×2 (07:56→17:54)
[2019-03-14] MEDS: Potassium Chloride 10% 20 MEQ/15 ML Soln 15 ML UD Cup PO SCH ×3 (07:56→20:06)
[2019-03-14] MEDS: Cyanocobalamin (Vitamin B12) 1,000 MCG Tab PO SCH (07:57)
[2019-03-14] MEDS: Cholecalciferol (Vitamin D3) 25 MCG Tab PO SCH (07:57)
[2019-03-14] MEDS: buPROPion 100 MG Tab PO SCH (20:05)
[2019-03-14] MEDS: Simvastatin 10 MG Tab PO SCH (20:05)
[2019-03-14] MEDS: LEVOTHYROXINE SODIUM 137 MCG PO SCH (20:05)
[2019-03-15] MEDS: Albuterol/Ipratropium 3.0-0.5 MG/3 ML Neb Soln NEB SCH ×2 (07:55→19:52)
[2019-03-15] MEDS: Citalopram 20 MG Tab PO SCH (07:55)
[2019-03-15] MEDS: Metoclopramide 10 MG Tab PO SCH ×2 (07:55→17:57)
[2019-03-15] MEDS: Ibuprofen 600 MG Tab PO SCH ×2 (07:55→17:57)
[2019-03-15] MEDS: Fludrocortisone 0.1 MG Tab PO SCH ×2 (07:55→19:53)
[2019-03-15] MEDS: Furosemide 20 MG Tab PO SCH (07:55)
[2019-03-15] MEDS: Cholecalciferol (Vitamin D3) 25 MCG Tab PO SCH (07:56)
[2019-03-15] MEDS: Niacin 500 MG Tab PO SCH ×2 (07:56→17:58)
[2019-03-15] MEDS: Cyanocobalamin (Vitamin B12) 1,000 MCG Tab PO SCH (07:56)
[2019-03-15] MEDS: Potassium Chloride 10% 20 MEQ/15 ML Soln 15 ML UD Cup PO SCH ×3 (07:56→19:54)
[2019-03-15] MEDS: Simvastatin 10 MG Tab PO SCH (19:53)
[2019-03-15] MEDS: LEVOTHYROXINE SODIUM 137 MCG PO SCH (19:53)
[2019-03-15] MEDS: buPROPion 100 MG Tab PO SCH (19:53)
[2019-03-16] MEDS: Citalopram 20 MG Tab PO SCH (07:15)
[2019-03-16] MEDS: Potassium Chloride 10% 20 MEQ/15 ML Soln 15 ML UD Cup PO SCH ×3 (07:15→19:15)
[2019-03-16] MEDS: Metoclopramide 10 MG Tab PO SCH ×2 (07:15→17:03)
[2019-03-16] MEDS: Furosemide 20 MG Tab PO SCH (07:16)
[2019-03-16] MEDS: Ibuprofen 600 MG Tab PO SCH ×2 (07:16→17:03)
[2019-03-16] MEDS: Albuterol/Ipratropium 3.0-0.5 MG/3 ML Neb Soln NEB SCH ×2 (07:16→19:17)
[2019-03-16] MEDS: Fludrocortisone 0.1 MG Tab PO SCH ×2 (07:16→19:16)
[2019-03-16] MEDS: Niacin 500 MG Tab PO SCH ×2 (07:16→17:03)
[2019-03-16] MEDS: Cyanocobalamin (Vitamin B12) 1,000 MCG Tab PO SCH (07:17)
[2019-03-16] MEDS: Cholecalciferol (Vitamin D3) 25 MCG Tab PO SCH (07:17)
[2019-03-16] MEDS: buPROPion 100 MG Tab PO SCH (19:16)
[2019-03-16] MEDS: LEVOTHYROXINE SODIUM 137 MCG PO SCH (19:16)
[2019-03-16] MEDS: Simvastatin 10 MG Tab PO SCH (19:17)
[2019-03-17] MEDS: Citalopram 20 MG Tab PO SCH (07:31)
[2019-03-17] MEDS: Metoclopramide 10 MG Tab PO SCH ×2 (07:31→17:09)
[2019-03-17] MEDS: Albuterol/Ipratropium 3.0-0.5 MG/3 ML Neb Soln NEB SCH ×2 (07:31→19:06)
[2019-03-17] MEDS: Ibuprofen 600 MG Tab PO SCH ×2 (07:32→17:09)
[2019-03-17] MEDS: Furosemide 20 MG Tab PO SCH (07:32)
[2019-03-17] MEDS: Fludrocortisone 0.1 MG Tab PO SCH ×2 (07:32→19:06)
[2019-03-17] MEDS: Potassium Chloride 10% 20 MEQ/15 ML Soln 15 ML UD Cup PO SCH ×3 (07:33→19:05)
[2019-03-17] MEDS: Niacin 500 MG Tab PO SCH ×2 (07:33→17:09)
[2019-03-17] MEDS: Cyanocobalamin (Vitamin B12) 1,000 MCG Tab PO SCH (07:34)
[2019-03-17] MEDS: Cholecalciferol (Vitamin D3) 25 MCG Tab PO SCH (07:34)
[2019-03-17] MEDS: buPROPion 100 MG Tab PO SCH (19:06)
[2019-03-17] MEDS: Simvastatin 10 MG Tab PO SCH (19:06)
[2019-03-17] MEDS: LEVOTHYROXINE SODIUM 137 MCG PO SCH (19:06)
[2019-03-17] MEDS: Acetaminophen 325 MG Tab PO PRN (21:48)
[2019-03-18] MEDS: Potassium Chloride 10% 20 MEQ/15 ML Soln 15 ML UD Cup PO SCH ×3 (07:21→19:25)
[2019-03-18] MEDS: Metoclopramide 10 MG Tab PO SCH ×2 (07:22→17:10)
[2019-03-18] MEDS: Albuterol/Ipratropium 3.0-0.5 MG/3 ML Neb Soln NEB SCH ×2 (07:22→19:24)
[2019-03-18] MEDS: Citalopram 20 MG Tab PO SCH (07:22)
[2019-03-18] MEDS: Fludrocortisone 0.1 MG Tab PO SCH ×2 (07:22→19:24)
[2019-03-18] MEDS: Furosemide 20 MG Tab PO SCH (07:22)
[2019-03-18] MEDS: Ibuprofen 600 MG Tab PO SCH ×2 (07:22→17:10)
[2019-03-18] MEDS: Cyanocobalamin (Vitamin B12) 1,000 MCG Tab PO SCH (07:23)
[2019-03-18] MEDS: Cholecalciferol (Vitamin D3) 25 MCG Tab PO SCH (07:23)
[2019-03-18] MEDS: Niacin 500 MG Tab PO SCH ×2 (07:23→17:10)
[2019-03-18] MEDS: LEVOTHYROXINE SODIUM 137 MCG PO SCH (19:25)
[2019-03-18] MEDS: buPROPion 100 MG Tab PO SCH (19:25)
[2019-03-18] MEDS: Simvastatin 10 MG Tab PO SCH (19:25)
[2019-03-19] MEDS: Citalopram 20 MG Tab PO SCH (07:48)
[2019-03-19] MEDS: Metoclopramide 10 MG Tab PO SCH ×2 (07:48→18:05)
[2019-03-19] MEDS: Fludrocortisone 0.1 MG Tab PO SCH ×2 (07:48→19:49)
[2019-03-19] MEDS: Furosemide 20 MG Tab PO SCH (07:48)
[2019-03-19] MEDS: Cholecalciferol (Vitamin D3) 25 MCG Tab PO SCH (07:49)
[2019-03-19] MEDS: Albuterol/Ipratropium 3.0-0.5 MG/3 ML Neb Soln NEB SCH ×2 (07:49→19:49)
[2019-03-19] MEDS: Ibuprofen 600 MG Tab PO SCH ×2 (07:49→18:06)
[2019-03-19] MEDS: Cyanocobalamin (Vitamin B12) 1,000 MCG Tab PO SCH (07:50)
[2019-03-19] MEDS: Potassium Chloride 10% 20 MEQ/15 ML Soln 15 ML UD Cup PO SCH ×3 (07:50→19:49)
[2019-03-19] MEDS: Niacin 500 MG Tab PO SCH ×2 (07:50→18:06)
[2019-03-19] MEDS: LEVOTHYROXINE SODIUM 137 MCG PO SCH (19:49)
[2019-03-19] MEDS: Simvastatin 10 MG Tab PO SCH (19:50)
[2019-03-19] MEDS: buPROPion 100 MG Tab PO SCH (19:50)
[2019-03-20] MEDS: Metoclopramide 10 MG Tab PO SCH ×2 (08:03→17:28)
[2019-03-20] MEDS: Citalopram 20 MG Tab PO SCH (08:03)
[2019-03-20] MEDS: Ibuprofen 600 MG Tab PO SCH ×2 (08:03→17:28)
[2019-03-20] MEDS: Furosemide 20 MG Tab PO SCH (08:03)
[2019-03-20] MEDS: Fludrocortisone 0.1 MG Tab PO SCH ×2 (08:03→20:02)
[2019-03-20] MEDS: Niacin 500 MG Tab PO SCH ×2 (08:04→17:29)
[2019-03-20] MEDS: Albuterol/Ipratropium 3.0-0.5 MG/3 ML Neb Soln NEB SCH ×2 (08:04→20:02)
[2019-03-20] MEDS: Cholecalciferol (Vitamin D3) 25 MCG Tab PO SCH (08:05)
[2019-03-20] MEDS: Cyanocobalamin (Vitamin B12) 1,000 MCG Tab PO SCH (08:05)
[2019-03-20] MEDS: Potassium Chloride 10% 20 MEQ/15 ML Soln 15 ML UD Cup PO SCH ×3 (08:05→20:02)
[2019-03-20] MEDS: LEVOTHYROXINE SODIUM 137 MCG PO SCH (20:02)
[2019-03-20] MEDS: Simvastatin 10 MG Tab PO SCH (20:03)
[2019-03-20] MEDS: buPROPion 100 MG Tab PO SCH (20:03)
[2019-03-20] MEDS: Acetaminophen 325 MG Tab PO PRN (21:42)
[2019-03-21] MEDS: Furosemide 20 MG Tab PO SCH (07:59)
[2019-03-21] MEDS: Albuterol/Ipratropium 3.0-0.5 MG/3 ML Neb Soln NEB SCH ×2 (07:59→19:10)
[2019-03-21] MEDS: Citalopram 20 MG Tab PO SCH (07:59)
[2019-03-21] MEDS: Metoclopramide 10 MG Tab PO SCH ×2 (07:59→17:52)
[2019-03-21] MEDS: Fludrocortisone 0.1 MG Tab PO SCH ×2 (07:59→19:11)
[2019-03-21] MEDS: Potassium Chloride 10% 20 MEQ/15 ML Soln 15 ML UD Cup PO SCH ×3 (08:00→19:13)
[2019-03-21] MEDS: Niacin 500 MG Tab PO SCH ×2 (08:00→17:53)
[2019-03-21] MEDS: Ibuprofen 600 MG Tab PO SCH ×2 (08:00→17:52)
[2019-03-21] MEDS: Cyanocobalamin (Vitamin B12) 1,000 MCG Tab PO SCH (08:01)
[2019-03-21] MEDS: Cholecalciferol (Vitamin D3) 25 MCG Tab PO SCH (08:01)
[2019-03-21] MEDS: buPROPion 100 MG Tab PO SCH (19:11)
[2019-03-21] MEDS: LEVOTHYROXINE SODIUM 137 MCG PO SCH (19:11)
[2019-03-21] MEDS: Simvastatin 10 MG Tab PO SCH (19:12)
[2019-03-22] MEDS: Potassium Chloride 10% 20 MEQ/15 ML Soln 15 ML UD Cup PO SCH ×3 (07:56→19:17)
[2019-03-22] MEDS: Fludrocortisone 0.1 MG Tab PO SCH ×2 (07:57→19:16)
[2019-03-22] MEDS: Albuterol/Ipratropium 3.0-0.5 MG/3 ML Neb Soln NEB SCH ×2 (07:57→19:15)
[2019-03-22] MEDS: Furosemide 20 MG Tab PO SCH (07:57)
[2019-03-22] MEDS: Metoclopramide 10 MG Tab PO SCH ×2 (07:57→17:13)
[2019-03-22] MEDS: Citalopram 20 MG Tab PO SCH (07:57)
[2019-03-22] MEDS: Ibuprofen 600 MG Tab PO SCH ×2 (07:58→17:13)
[2019-03-22] MEDS: Cyanocobalamin (Vitamin B12) 1,000 MCG Tab PO SCH (07:58)
[2019-03-22] MEDS: Cholecalciferol (Vitamin D3) 25 MCG Tab PO SCH (07:58)
[2019-03-22] MEDS: Niacin 500 MG Tab PO SCH ×2 (07:58→17:13)
[2019-03-22] MEDS: buPROPion 100 MG Tab PO SCH (19:16)
[2019-03-22] MEDS: Simvastatin 10 MG Tab PO SCH (19:16)
[2019-03-22] MEDS: LEVOTHYROXINE SODIUM 137 MCG PO SCH (19:16)
[2019-03-23] MEDS: Acetaminophen 325 MG Tab PO PRN ×3 (00:13→17:18)
[2019-03-23] MEDS: Albuterol/Ipratropium 3.0-0.5 MG/3 ML Neb Soln NEB SCH ×2 (07:18→19:23)
[2019-03-23] MEDS: Potassium Chloride 10% 20 MEQ/15 ML Soln 15 ML UD Cup PO SCH ×3 (07:18→19:22)
[2019-03-23] MEDS: Citalopram 20 MG Tab PO SCH (07:20)
[2019-03-23] MEDS: Metoclopramide 10 MG Tab PO SCH ×2 (07:20→17:17)
[2019-03-23] MEDS: Fludrocortisone 0.1 MG Tab PO SCH ×2 (07:20→19:22)
[2019-03-23] MEDS: Furosemide 20 MG Tab PO SCH (07:21)
[2019-03-23] MEDS: Ibuprofen 600 MG Tab PO SCH ×2 (07:21→17:17)
[2019-03-23] MEDS: Niacin 500 MG Tab PO SCH ×2 (07:21→17:01)
[2019-03-23] MEDS: Cholecalciferol (Vitamin D3) 25 MCG Tab PO SCH (07:22)
[2019-03-23] MEDS: Cyanocobalamin (Vitamin B12) 1,000 MCG Tab PO SCH (07:22)
--- NOTE | 2019-03-23 09:40 | PCM.SN ---
- Free Text/Narrative Note: The patient has been having some problems with recurrence of her previous minor falls during the last couple of days, including yesterday evening with mild right toe and left ankle pain. No history of significant head injury, change in mental status, neurological deficits, etc.. Vital signs have been stable during the last couple of days, including a blood pressure 107/58 and pulse of 61 earlier this morning. No direct evidence of clinical orthostasis. Medications were reviewed with the patient normally having problems with hypotension. X- rays of the right great toe were normal today with exception of moderate osteoarthritic changes with no evidence of acute fracture. X-rays of the left ankle, 3 views, also show no evidence of fracture with status post ORIF. Continue fall precautions with additional symptomatic relief for mild pain as above. Extensive precautions given to swing bed nurses.
[2019-03-23] MEDS: buPROPion 100 MG Tab PO SCH (19:22)
[2019-03-23] MEDS: LEVOTHYROXINE SODIUM 137 MCG PO SCH (19:22)
[2019-03-23] MEDS: Simvastatin 10 MG Tab PO SCH (19:36)
[2019-03-24] MEDS: Acetaminophen 325 MG Tab PO PRN (07:49)
[2019-03-24] MEDS: Metoclopramide 10 MG Tab PO SCH ×2 (07:50→17:50)
[2019-03-24] MEDS: Citalopram 20 MG Tab PO SCH (07:50)
[2019-03-24] MEDS: Albuterol/Ipratropium 3.0-0.5 MG/3 ML Neb Soln NEB SCH ×2 (07:51→19:13)
[2019-03-24] MEDS: Fludrocortisone 0.1 MG Tab PO SCH ×2 (07:51→19:11)
[2019-03-24] MEDS: Ibuprofen 600 MG Tab PO SCH ×2 (07:51→17:50)
[2019-03-24] MEDS: Furosemide 20 MG Tab PO SCH (07:51)
[2019-03-24] MEDS: Niacin 500 MG Tab PO SCH ×2 (07:52→17:50)
[2019-03-24] MEDS: Potassium Chloride 10% 20 MEQ/15 ML Soln 15 ML UD Cup PO SCH ×3 (07:52→19:12)
[2019-03-24] MEDS: Cholecalciferol (Vitamin D3) 25 MCG Tab PO SCH (07:53)
[2019-03-24] MEDS: Cyanocobalamin (Vitamin B12) 1,000 MCG Tab PO SCH (07:53)
[2019-03-24] MEDS: buPROPion 100 MG Tab PO SCH (19:11)
[2019-03-24] MEDS: LEVOTHYROXINE SODIUM 137 MCG PO SCH (19:11)
[2019-03-24] MEDS: Simvastatin 10 MG Tab PO SCH (19:11)
[2019-03-25] MEDS: Citalopram 20 MG Tab PO SCH (07:46)
[2019-03-25] MEDS: Fludrocortisone 0.1 MG Tab PO SCH ×2 (07:46→22:54)
[2019-03-25] MEDS: Metoclopramide 10 MG Tab PO SCH ×2 (07:46→17:28)
[2019-03-25] MEDS: Cholecalciferol (Vitamin D3) 25 MCG Tab PO SCH (07:47)
[2019-03-25] MEDS: Niacin 500 MG Tab PO SCH ×2 (07:47→17:29)
[2019-03-25] MEDS: Ibuprofen 600 MG Tab PO SCH ×2 (07:47→17:28)
[2019-03-25] MEDS: Furosemide 20 MG Tab PO SCH (07:47)
[2019-03-25] MEDS: Albuterol/Ipratropium 3.0-0.5 MG/3 ML Neb Soln NEB SCH ×2 (07:48→22:54)
[2019-03-25] MEDS: Potassium Chloride 10% 20 MEQ/15 ML Soln 15 ML UD Cup PO SCH ×3 (07:48→22:54)
[2019-03-25] MEDS: Cyanocobalamin (Vitamin B12) 1,000 MCG Tab PO SCH (07:48)
[2019-03-25] MEDS: Acetaminophen 325 MG Tab PO PRN (13:48)
[2019-03-25] MEDS: LEVOTHYROXINE SODIUM 137 MCG PO SCH (22:54)
[2019-03-25] MEDS: buPROPion 100 MG Tab PO SCH (22:54)
[2019-03-25] MEDS: Simvastatin 10 MG Tab PO SCH (22:54)
[2019-03-26] MEDS: Citalopram 20 MG Tab PO SCH (08:24)
[2019-03-26] MEDS: Ibuprofen 600 MG Tab PO SCH ×2 (08:24→17:59)
[2019-03-26] MEDS: Furosemide 20 MG Tab PO SCH (08:24)
[2019-03-26] MEDS: Metoclopramide 10 MG Tab PO SCH ×2 (08:24→18:00)
[2019-03-26] MEDS: Fludrocortisone 0.1 MG Tab PO SCH ×2 (08:24→19:22)
[2019-03-26] MEDS: Cyanocobalamin (Vitamin B12) 1,000 MCG Tab PO SCH (08:25)
[2019-03-26] MEDS: Albuterol/Ipratropium 3.0-0.5 MG/3 ML Neb Soln NEB SCH ×2 (08:25→19:22)
[2019-03-26] MEDS: Cholecalciferol (Vitamin D3) 25 MCG Tab PO SCH (08:25)
[2019-03-26] MEDS: Niacin 500 MG Tab PO SCH ×2 (08:25→18:01)
[2019-03-26] MEDS: Potassium Chloride 10% 20 MEQ/15 ML Soln 15 ML UD Cup PO SCH ×3 (08:26→19:23)
[2019-03-26] MEDS: buPROPion 100 MG Tab PO SCH (19:22)
[2019-03-26] MEDS: Simvastatin 10 MG Tab PO SCH (19:22)
[2019-03-26] MEDS: LEVOTHYROXINE SODIUM 137 MCG PO SCH (19:22)
[2019-03-26] MEDS: Acetaminophen 325 MG Tab PO PRN (19:24)
[2019-03-27] MEDS: Metoclopramide 10 MG Tab PO SCH ×2 (08:10→17:39)
[2019-03-27] MEDS: Citalopram 20 MG Tab PO SCH (08:10)
[2019-03-27] MEDS: Albuterol/Ipratropium 3.0-0.5 MG/3 ML Neb Soln NEB SCH ×2 (08:11→19:45)
[2019-03-27] MEDS: Fludrocortisone 0.1 MG Tab PO SCH ×2 (08:11→19:45)
[2019-03-27] MEDS: Ibuprofen 600 MG Tab PO SCH ×2 (08:11→17:39)
[2019-03-27] MEDS: Furosemide 20 MG Tab PO SCH (08:11)
[2019-03-27] MEDS: Niacin 500 MG Tab PO SCH ×2 (08:12→17:40)
[2019-03-27] MEDS: Potassium Chloride 10% 20 MEQ/15 ML Soln 15 ML UD Cup PO SCH ×3 (08:17→19:44)
[2019-03-27] MEDS: Cyanocobalamin (Vitamin B12) 1,000 MCG Tab PO SCH (08:18)
[2019-03-27] MEDS: Cholecalciferol (Vitamin D3) 25 MCG Tab PO SCH (08:18)
[2019-03-27] MEDS: buPROPion 100 MG Tab PO SCH (19:45)
[2019-03-27] MEDS: LEVOTHYROXINE SODIUM 137 MCG PO SCH (19:45)
[2019-03-27] MEDS: Simvastatin 10 MG Tab PO SCH (19:45)
[2019-03-27] MEDS: Acetaminophen 325 MG Tab PO PRN (19:50)
[2019-03-28] MEDS: Citalopram 20 MG Tab PO SCH (08:07)
[2019-03-28] MEDS: Fludrocortisone 0.1 MG Tab PO SCH ×2 (08:07→19:32)
[2019-03-28] MEDS: Metoclopramide 10 MG Tab PO SCH ×2 (08:07→17:48)
[2019-03-28] MEDS: Furosemide 20 MG Tab PO SCH (08:07)
[2019-03-28] MEDS: Albuterol/Ipratropium 3.0-0.5 MG/3 ML Neb Soln NEB SCH ×2 (08:07→19:33)
[2019-03-28] MEDS: Cyanocobalamin (Vitamin B12) 1,000 MCG Tab PO SCH (08:08)
[2019-03-28] MEDS: Niacin 500 MG Tab PO SCH ×2 (08:08→17:49)
[2019-03-28] MEDS: Ibuprofen 600 MG Tab PO SCH ×2 (08:08→17:48)
[2019-03-28] MEDS: Potassium Chloride 10% 20 MEQ/15 ML Soln 15 ML UD Cup PO SCH ×3 (08:09→19:34)
[2019-03-28] MEDS: Cholecalciferol (Vitamin D3) 25 MCG Tab PO SCH (08:09)
[2019-03-28] MEDS: buPROPion 100 MG Tab PO SCH (19:32)
[2019-03-28] MEDS: Simvastatin 10 MG Tab PO SCH (19:32)
[2019-03-28] MEDS: LEVOTHYROXINE SODIUM 137 MCG PO SCH (19:32)
[2019-03-28] MEDS: Acetaminophen 325 MG Tab PO PRN (19:36)
[2019-03-29] MEDS: Ibuprofen 600 MG Tab PO SCH ×2 (07:58→17:47)
[2019-03-29] MEDS: Citalopram 20 MG Tab PO SCH (07:59)
[2019-03-29] MEDS: Fludrocortisone 0.1 MG Tab PO SCH ×2 (07:59→19:49)
[2019-03-29] MEDS: Albuterol/Ipratropium 3.0-0.5 MG/3 ML Neb Soln NEB SCH ×2 (07:59→19:48)
[2019-03-29] MEDS: Furosemide 20 MG Tab PO SCH (07:59)
[2019-03-29] MEDS: Metoclopramide 10 MG Tab PO SCH ×2 (07:59→17:48)
[2019-03-29] MEDS: Niacin 500 MG Tab PO SCH ×2 (08:00→17:48)
[2019-03-29] MEDS: Cholecalciferol (Vitamin D3) 25 MCG Tab PO SCH (08:00)
[2019-03-29] MEDS: Cyanocobalamin (Vitamin B12) 1,000 MCG Tab PO SCH (08:00)
[2019-03-29] MEDS: Potassium Chloride 10% 20 MEQ/15 ML Soln 15 ML UD Cup PO SCH ×3 (08:00→19:49)
[2019-03-29] MEDS: Simvastatin 10 MG Tab PO SCH (19:48)
[2019-03-29] MEDS: buPROPion 100 MG Tab PO SCH (19:48)
[2019-03-29] MEDS: LEVOTHYROXINE SODIUM 137 MCG PO SCH (19:49)
[2019-03-30] MEDS: Ibuprofen 600 MG Tab PO SCH ×2 (08:14→17:13)
[2019-03-30] MEDS: Albuterol/Ipratropium 3.0-0.5 MG/3 ML Neb Soln NEB SCH ×2 (08:14→19:22)
[2019-03-30] MEDS: Fludrocortisone 0.1 MG Tab PO SCH ×2 (08:14→19:22)
[2019-03-30] MEDS: Metoclopramide 10 MG Tab PO SCH ×2 (08:14→17:13)
[2019-03-30] MEDS: Citalopram 20 MG Tab PO SCH (08:14)
[2019-03-30] MEDS: Furosemide 20 MG Tab PO SCH (08:14)
[2019-03-30] MEDS: Niacin 500 MG Tab PO SCH ×2 (08:15→17:14)
[2019-03-30] MEDS: Potassium Chloride 10% 20 MEQ/15 ML Soln 15 ML UD Cup PO SCH ×3 (08:15→19:22)
[2019-03-30] MEDS: Cholecalciferol (Vitamin D3) 25 MCG Tab PO SCH (08:16)
[2019-03-30] MEDS: Cyanocobalamin (Vitamin B12) 1,000 MCG Tab PO SCH (08:16)
[2019-03-30] MEDS: Acetaminophen 325 MG Tab PO PRN (13:10)
[2019-03-30] MEDS: Simvastatin 10 MG Tab PO SCH (19:21)
[2019-03-30] MEDS: buPROPion 100 MG Tab PO SCH (19:21)
[2019-03-30] MEDS: LEVOTHYROXINE SODIUM 137 MCG PO SCH (19:21)
[2019-03-31] MEDS: Metoclopramide 10 MG Tab PO SCH ×2 (08:01→17:53)
[2019-03-31] MEDS: Fludrocortisone 0.1 MG Tab PO SCH ×2 (08:02→19:20)
[2019-03-31] MEDS: Furosemide 20 MG Tab PO SCH (08:02)
[2019-03-31] MEDS: Ibuprofen 600 MG Tab PO SCH ×2 (08:02→17:53)
[2019-03-31] MEDS: Citalopram 20 MG Tab PO SCH (08:02)
[2019-03-31] MEDS: Niacin 500 MG Tab PO SCH ×2 (08:03→17:53)
[2019-03-31] MEDS: Albuterol/Ipratropium 3.0-0.5 MG/3 ML Neb Soln NEB SCH ×2 (08:03→19:18)
[2019-03-31] MEDS: Cyanocobalamin (Vitamin B12) 1,000 MCG Tab PO SCH (08:03)
[2019-03-31] MEDS: Cholecalciferol (Vitamin D3) 25 MCG Tab PO SCH (08:03)
[2019-03-31] MEDS: Potassium Chloride 10% 20 MEQ/15 ML Soln 15 ML UD Cup PO SCH ×3 (08:04→19:20)
[2019-03-31] MEDS: Simvastatin 10 MG Tab PO SCH (19:19)
[2019-03-31] MEDS: buPROPion 100 MG Tab PO SCH (19:20)
[2019-03-31] MEDS: LEVOTHYROXINE SODIUM 137 MCG PO SCH (19:20)
[2019-04-01] MEDS: Furosemide 20 MG Tab PO SCH (07:49)
[2019-04-01] MEDS: Fludrocortisone 0.1 MG Tab PO SCH ×2 (07:49→19:25)
[2019-04-01] MEDS: Metoclopramide 10 MG Tab PO SCH ×2 (07:49→17:52)
[2019-04-01] MEDS: Citalopram 20 MG Tab PO SCH (07:49)
[2019-04-01] MEDS: Potassium Chloride 10% 20 MEQ/15 ML Soln 15 ML UD Cup PO SCH ×3 (07:50→19:25)
[2019-04-01] MEDS: Ibuprofen 600 MG Tab PO SCH ×2 (07:50→17:52)
[2019-04-01] MEDS: Niacin 500 MG Tab PO SCH ×2 (07:51→17:52)
[2019-04-01] MEDS: Albuterol/Ipratropium 3.0-0.5 MG/3 ML Neb Soln NEB SCH ×2 (07:52→19:24)
[2019-04-01] MEDS: Cholecalciferol (Vitamin D3) 25 MCG Tab PO SCH (07:52)
[2019-04-01] MEDS: Cyanocobalamin (Vitamin B12) 1,000 MCG Tab PO SCH (07:52)
[2019-04-01] MEDS: LEVOTHYROXINE SODIUM 137 MCG PO SCH (19:25)
[2019-04-01] MEDS: buPROPion 100 MG Tab PO SCH (19:26)
[2019-04-01] MEDS: Simvastatin 10 MG Tab PO SCH (19:26)
[2019-04-02] MEDS: Citalopram 20 MG Tab PO SCH (07:32)
[2019-04-02] MEDS: Potassium Chloride 10% 20 MEQ/15 ML Soln 15 ML UD Cup PO SCH ×3 (07:32→19:19)
[2019-04-02] MEDS: Metoclopramide 10 MG Tab PO SCH ×2 (07:32→17:31)
[2019-04-02] MEDS: Furosemide 20 MG Tab PO SCH (07:33)
[2019-04-02] MEDS: Niacin 500 MG Tab PO SCH ×2 (07:33→17:31)
[2019-04-02] MEDS: Albuterol/Ipratropium 3.0-0.5 MG/3 ML Neb Soln NEB SCH ×2 (07:33→19:18)
[2019-04-02] MEDS: Fludrocortisone 0.1 MG Tab PO SCH ×2 (07:33→19:19)
[2019-04-02] MEDS: Ibuprofen 600 MG Tab PO SCH ×2 (07:33→17:31)
[2019-04-02] MEDS: Cholecalciferol (Vitamin D3) 25 MCG Tab PO SCH (07:34)
[2019-04-02] MEDS: Cyanocobalamin (Vitamin B12) 1,000 MCG Tab PO SCH (07:34)
[2019-04-02] MEDS: Acetaminophen 325 MG Tab PO PRN (13:17)
[2019-04-02] MEDS: LEVOTHYROXINE SODIUM 137 MCG PO SCH (19:19)
[2019-04-02] MEDS: buPROPion 100 MG Tab PO SCH (19:19)
[2019-04-02] MEDS: Simvastatin 10 MG Tab PO SCH (19:20)
[2019-04-03] MEDS: Potassium Chloride 10% 20 MEQ/15 ML Soln 15 ML UD Cup PO SCH ×3 (07:39→19:39)
[2019-04-03] MEDS: Citalopram 20 MG Tab PO SCH (07:40)
[2019-04-03] MEDS: Metoclopramide 10 MG Tab PO SCH ×2 (07:40→17:05)
[2019-04-03] MEDS: Ibuprofen 600 MG Tab PO SCH ×2 (07:40→17:05)
[2019-04-03] MEDS: Furosemide 20 MG Tab PO SCH (07:40)
[2019-04-03] MEDS: Fludrocortisone 0.1 MG Tab PO SCH ×2 (07:40→19:38)
[2019-04-03] MEDS: Albuterol/Ipratropium 3.0-0.5 MG/3 ML Neb Soln NEB SCH ×2 (07:40→19:38)
[2019-04-03] MEDS: Niacin 500 MG Tab PO SCH ×2 (07:41→17:06)
[2019-04-03] MEDS: Cyanocobalamin (Vitamin B12) 1,000 MCG Tab PO SCH (07:41)
[2019-04-03] MEDS: Cholecalciferol (Vitamin D3) 25 MCG Tab PO SCH (07:41)
[2019-04-03] MEDS: LEVOTHYROXINE SODIUM 137 MCG PO SCH (19:38)
[2019-04-03] MEDS: Simvastatin 10 MG Tab PO SCH (19:38)
[2019-04-03] MEDS: buPROPion 100 MG Tab PO SCH (19:38)
[2019-04-04] MEDS: Metoclopramide 10 MG Tab PO SCH ×2 (08:06→17:49)
[2019-04-04] MEDS: Furosemide 20 MG Tab PO SCH (08:06)
[2019-04-04] MEDS: Citalopram 20 MG Tab PO SCH (08:06)
[2019-04-04] MEDS: Fludrocortisone 0.1 MG Tab PO SCH ×2 (08:06→19:22)
[2019-04-04] MEDS: Ibuprofen 600 MG Tab PO SCH ×2 (08:07→17:49)
[2019-04-04] MEDS: Potassium Chloride 10% 20 MEQ/15 ML Soln 15 ML UD Cup PO SCH ×3 (08:08→19:21)
[2019-04-04] MEDS: Niacin 500 MG Tab PO SCH ×2 (08:08→17:50)
[2019-04-04] MEDS: Cholecalciferol (Vitamin D3) 25 MCG Tab PO SCH (08:09)
[2019-04-04] MEDS: Cyanocobalamin (Vitamin B12) 1,000 MCG Tab PO SCH (08:11)
[2019-04-04] MEDS: Albuterol/Ipratropium 3.0-0.5 MG/3 ML Neb Soln NEB SCH ×2 (09:06→19:22)
[2019-04-04] MEDS: buPROPion 100 MG Tab PO SCH (19:22)
[2019-04-04] MEDS: Simvastatin 10 MG Tab PO SCH (19:22)
[2019-04-04] MEDS: LEVOTHYROXINE SODIUM 137 MCG PO SCH (19:22)
[2019-04-05] MEDS: Citalopram 20 MG Tab PO SCH (07:59)
[2019-04-05] MEDS: Ibuprofen 600 MG Tab PO SCH ×2 (07:59→18:02)
[2019-04-05] MEDS: Metoclopramide 10 MG Tab PO SCH ×2 (07:59→18:01)
[2019-04-05] MEDS: Furosemide 20 MG Tab PO SCH (07:59)
[2019-04-05] MEDS: Fludrocortisone 0.1 MG Tab PO SCH ×2 (07:59→19:39)
[2019-04-05] MEDS: Cyanocobalamin (Vitamin B12) 1,000 MCG Tab PO SCH (08:00)
[2019-04-05] MEDS: Niacin 500 MG Tab PO SCH ×2 (08:00→18:02)
[2019-04-05] MEDS: Potassium Chloride 10% 20 MEQ/15 ML Soln 15 ML UD Cup PO SCH ×3 (08:01→19:40)
[2019-04-05] MEDS: Cholecalciferol (Vitamin D3) 25 MCG Tab PO SCH (08:01)
[2019-04-05] MEDS: Albuterol/Ipratropium 3.0-0.5 MG/3 ML Neb Soln NEB SCH ×2 (08:01→19:38)
[2019-04-05] MEDS: LEVOTHYROXINE SODIUM 137 MCG PO SCH (19:39)
[2019-04-05] MEDS: buPROPion 100 MG Tab PO SCH (19:41)
[2019-04-05] MEDS: Simvastatin 10 MG Tab PO SCH (19:42)
[2019-04-05] MEDS: Acetaminophen 325 MG Tab PO PRN (19:45)
[2019-04-06] MEDS: Fludrocortisone 0.1 MG Tab PO SCH ×2 (07:30→19:21)
[2019-04-06] MEDS: Citalopram 20 MG Tab PO SCH (07:30)
[2019-04-06] MEDS: Metoclopramide 10 MG Tab PO SCH ×2 (07:30→17:11)
[2019-04-06] MEDS: Albuterol/Ipratropium 3.0-0.5 MG/3 ML Neb Soln NEB SCH ×2 (07:30→19:22)
[2019-04-06] MEDS: Potassium Chloride 10% 20 MEQ/15 ML Soln 15 ML UD Cup PO SCH ×3 (07:30→19:21)
[2019-04-06] MEDS: Furosemide 20 MG Tab PO SCH (07:31)
[2019-04-06] MEDS: Ibuprofen 600 MG Tab PO SCH ×2 (07:31→17:11)
[2019-04-06] MEDS: Niacin 500 MG Tab PO SCH ×2 (07:32→17:11)
[2019-04-06] MEDS: Cholecalciferol (Vitamin D3) 25 MCG Tab PO SCH (07:33)
[2019-04-06] MEDS: Cyanocobalamin (Vitamin B12) 1,000 MCG Tab PO SCH (07:33)
[2019-04-06] MEDS: LEVOTHYROXINE SODIUM 137 MCG PO SCH (19:21)
[2019-04-06] MEDS: Simvastatin 10 MG Tab PO SCH (19:21)
[2019-04-06] MEDS: buPROPion 100 MG Tab PO SCH (19:21)
[2019-04-07] MEDS: Citalopram 20 MG Tab PO SCH (07:16)
[2019-04-07] MEDS: Metoclopramide 10 MG Tab PO SCH ×2 (07:16→17:09)
[2019-04-07] MEDS: Potassium Chloride 10% 20 MEQ/15 ML Soln 15 ML UD Cup PO SCH ×3 (07:16→20:23)
[2019-04-07] MEDS: Fludrocortisone 0.1 MG Tab PO SCH ×2 (07:17→20:22)
[2019-04-07] MEDS: Albuterol/Ipratropium 3.0-0.5 MG/3 ML Neb Soln NEB SCH ×2 (07:17→20:22)
[2019-04-07] MEDS: Furosemide 20 MG Tab PO SCH (07:17)
[2019-04-07] MEDS: Ibuprofen 600 MG Tab PO SCH ×2 (07:17→17:09)
[2019-04-07] MEDS: Cholecalciferol (Vitamin D3) 25 MCG Tab PO SCH (07:18)
[2019-04-07] MEDS: Cyanocobalamin (Vitamin B12) 1,000 MCG Tab PO SCH (07:18)
[2019-04-07] MEDS: Niacin 500 MG Tab PO SCH ×2 (07:18→17:10)
[2019-04-07] MEDS: LEVOTHYROXINE SODIUM 137 MCG PO SCH (20:23)
[2019-04-07] MEDS: Simvastatin 10 MG Tab PO SCH (20:24)
[2019-04-07] MEDS: buPROPion 100 MG Tab PO SCH (20:24)
[2019-04-08] MEDS: Cholecalciferol (Vitamin D3) 25 MCG Tab PO SCH (08:02)
[2019-04-08] MEDS: Metoclopramide 10 MG Tab PO SCH ×2 (08:02→17:55)
[2019-04-08] MEDS: Furosemide 20 MG Tab PO SCH (08:02)
[2019-04-08] MEDS: Fludrocortisone 0.1 MG Tab PO SCH ×2 (08:02→20:13)
[2019-04-08] MEDS: Ibuprofen 600 MG Tab PO SCH ×2 (08:02→17:55)
[2019-04-08] MEDS: Citalopram 20 MG Tab PO SCH (08:02)
[2019-04-08] MEDS: Niacin 500 MG Tab PO SCH ×2 (08:03→17:54)
[2019-04-08] MEDS: Albuterol/Ipratropium 3.0-0.5 MG/3 ML Neb Soln NEB SCH ×2 (08:03→20:13)
[2019-04-08] MEDS: Cyanocobalamin (Vitamin B12) 1,000 MCG Tab PO SCH (08:03)
[2019-04-08] MEDS: Potassium Chloride 10% 20 MEQ/15 ML Soln 15 ML UD Cup PO SCH ×3 (08:04→20:13)
[2019-04-08] MEDS: LEVOTHYROXINE SODIUM 137 MCG PO SCH (20:13)
[2019-04-08] MEDS: Simvastatin 10 MG Tab PO SCH (20:13)
[2019-04-08] MEDS: buPROPion 100 MG Tab PO SCH (20:13)
[2019-04-09] MEDS: Metoclopramide 10 MG Tab PO SCH ×2 (08:15→17:46)
[2019-04-09] MEDS: Furosemide 20 MG Tab PO SCH (08:15)
[2019-04-09] MEDS: Ibuprofen 600 MG Tab PO SCH ×2 (08:15→17:46)
[2019-04-09] MEDS: Fludrocortisone 0.1 MG Tab PO SCH ×2 (08:15→19:25)
[2019-04-09] MEDS: Citalopram 20 MG Tab PO SCH (08:15)
[2019-04-09] MEDS: Niacin 500 MG Tab PO SCH ×2 (08:16→17:46)
[2019-04-09] MEDS: Albuterol/Ipratropium 3.0-0.5 MG/3 ML Neb Soln NEB SCH ×2 (08:16→19:25)
[2019-04-09] MEDS: Cholecalciferol (Vitamin D3) 25 MCG Tab PO SCH (08:16)
[2019-04-09] MEDS: Cyanocobalamin (Vitamin B12) 1,000 MCG Tab PO SCH (08:16)
[2019-04-09] MEDS: Potassium Chloride 10% 20 MEQ/15 ML Soln 15 ML UD Cup PO SCH ×3 (08:17→19:26)
[2019-04-09] MEDS: buPROPion 100 MG Tab PO SCH (19:25)
[2019-04-09] MEDS: Simvastatin 10 MG Tab PO SCH (19:25)
[2019-04-09] MEDS: LEVOTHYROXINE SODIUM 137 MCG PO SCH (19:25)
[2019-04-10] MEDS: Furosemide 20 MG Tab PO SCH (08:25)
[2019-04-10] MEDS: Citalopram 20 MG Tab PO SCH (08:25)
[2019-04-10] MEDS: Albuterol/Ipratropium 3.0-0.5 MG/3 ML Neb Soln NEB SCH ×2 (08:25→19:07)
[2019-04-10] MEDS: Metoclopramide 10 MG Tab PO SCH ×2 (08:25→17:49)
[2019-04-10] MEDS: Fludrocortisone 0.1 MG Tab PO SCH ×2 (08:25→19:07)
[2019-04-10] MEDS: Ibuprofen 600 MG Tab PO SCH ×2 (08:26→17:49)
[2019-04-10] MEDS: Potassium Chloride 10% 20 MEQ/15 ML Soln 15 ML UD Cup PO SCH ×3 (08:27→19:09)
[2019-04-10] MEDS: Niacin 500 MG Tab PO SCH ×2 (08:27→17:51)
[2019-04-10] MEDS: Cyanocobalamin (Vitamin B12) 1,000 MCG Tab PO SCH (08:28)
[2019-04-10] MEDS: Cholecalciferol (Vitamin D3) 25 MCG Tab PO SCH (08:28)
[2019-04-10] MEDS: LEVOTHYROXINE SODIUM 137 MCG PO SCH (19:07)
[2019-04-10] MEDS: buPROPion 100 MG Tab PO SCH (19:08)
[2019-04-10] MEDS: Simvastatin 10 MG Tab PO SCH (19:08)
[2019-04-11] MEDS: Metoclopramide 10 MG Tab PO SCH ×2 (07:55→17:33)
[2019-04-11] MEDS: Citalopram 20 MG Tab PO SCH (07:55)
[2019-04-11] MEDS: Furosemide 20 MG Tab PO SCH (07:55)
[2019-04-11] MEDS: Fludrocortisone 0.1 MG Tab PO SCH ×2 (07:55→19:52)
[2019-04-11] MEDS: Ibuprofen 600 MG Tab PO SCH ×2 (07:56→17:33)
[2019-04-11] MEDS: Albuterol/Ipratropium 3.0-0.5 MG/3 ML Neb Soln NEB SCH ×2 (07:56→19:52)
[2019-04-11] MEDS: Niacin 500 MG Tab PO SCH ×2 (07:56→17:34)
[2019-04-11] MEDS: Potassium Chloride 10% 20 MEQ/15 ML Soln 15 ML UD Cup PO SCH ×3 (07:57→19:53)
[2019-04-11] MEDS: Cholecalciferol (Vitamin D3) 25 MCG Tab PO SCH (07:57)
[2019-04-11] MEDS: Cyanocobalamin (Vitamin B12) 1,000 MCG Tab PO SCH (07:57)
[2019-04-11] MEDS: LEVOTHYROXINE SODIUM 137 MCG PO SCH (19:52)
[2019-04-11] MEDS: Simvastatin 10 MG Tab PO SCH (19:53)
[2019-04-11] MEDS: buPROPion 100 MG Tab PO SCH (19:53)
[2019-04-12] MEDS: Fludrocortisone 0.1 MG Tab PO SCH ×2 (08:11→19:06)
[2019-04-12] MEDS: Furosemide 20 MG Tab PO SCH (08:11)
[2019-04-12] MEDS: Metoclopramide 10 MG Tab PO SCH ×2 (08:11→17:39)
[2019-04-12] MEDS: Citalopram 20 MG Tab PO SCH (08:11)
[2019-04-12] MEDS: Ibuprofen 600 MG Tab PO SCH ×2 (08:13→17:39)
[2019-04-12] MEDS: Cholecalciferol (Vitamin D3) 25 MCG Tab PO SCH (08:14)
[2019-04-12] MEDS: Niacin 500 MG Tab PO SCH ×2 (08:14→17:40)
[2019-04-12] MEDS: Potassium Chloride 10% 20 MEQ/15 ML Soln 15 ML UD Cup PO SCH ×3 (08:15→19:07)
[2019-04-12] MEDS: Albuterol/Ipratropium 3.0-0.5 MG/3 ML Neb Soln NEB SCH ×2 (08:15→19:06)
[2019-04-12] MEDS: Cyanocobalamin (Vitamin B12) 1,000 MCG Tab PO SCH (08:15)
[2019-04-12] MEDS: LEVOTHYROXINE SODIUM 137 MCG PO SCH (19:06)
[2019-04-12] MEDS: buPROPion 100 MG Tab PO SCH (19:06)
[2019-04-12] MEDS: Simvastatin 10 MG Tab PO SCH (19:06)
[2019-04-13] MEDS: Acetaminophen 325 MG Tab PO PRN (04:56)
[2019-04-13] MEDS: Metoclopramide 10 MG Tab PO SCH ×2 (07:26→17:08)
[2019-04-13] MEDS: Citalopram 20 MG Tab PO SCH (07:26)
[2019-04-13] MEDS: Albuterol/Ipratropium 3.0-0.5 MG/3 ML Neb Soln NEB SCH ×2 (07:27→19:23)
[2019-04-13] MEDS: Fludrocortisone 0.1 MG Tab PO SCH ×2 (07:27→19:23)
[2019-04-13] MEDS: Furosemide 20 MG Tab PO SCH (07:27)
[2019-04-13] MEDS: Ibuprofen 600 MG Tab PO SCH ×2 (07:28→17:08)
[2019-04-13] MEDS: Potassium Chloride 10% 20 MEQ/15 ML Soln 15 ML UD Cup PO SCH ×3 (07:28→19:24)
[2019-04-13] MEDS: Niacin 500 MG Tab PO SCH ×2 (07:28→17:09)
[2019-04-13] MEDS: Cholecalciferol (Vitamin D3) 25 MCG Tab PO SCH (07:29)
[2019-04-13] MEDS: Cyanocobalamin (Vitamin B12) 1,000 MCG Tab PO SCH (07:29)
[2019-04-13] MEDS: LEVOTHYROXINE SODIUM 137 MCG PO SCH (19:23)
[2019-04-13] MEDS: buPROPion 100 MG Tab PO SCH (19:23)
[2019-04-13] MEDS: Simvastatin 10 MG Tab PO SCH (19:23)
[2019-04-14] MEDS: Acetaminophen 325 MG Tab PO PRN (03:15)
[2019-04-14] MEDS: Potassium Chloride 10% 20 MEQ/15 ML Soln 15 ML UD Cup PO SCH ×3 (07:10→19:12)
[2019-04-14] MEDS: Albuterol/Ipratropium 3.0-0.5 MG/3 ML Neb Soln NEB SCH ×2 (07:10→19:11)
[2019-04-14] MEDS: Metoclopramide 10 MG Tab PO SCH ×2 (07:11→17:19)
[2019-04-14] MEDS: Furosemide 20 MG Tab PO SCH (07:11)
[2019-04-14] MEDS: Ibuprofen 600 MG Tab PO SCH ×2 (07:11→17:19)
[2019-04-14] MEDS: Citalopram 20 MG Tab PO SCH (07:11)
[2019-04-14] MEDS: Fludrocortisone 0.1 MG Tab PO SCH ×2 (07:11→19:11)
[2019-04-14] MEDS: Cyanocobalamin (Vitamin B12) 1,000 MCG Tab PO SCH (07:12)
[2019-04-14] MEDS: Cholecalciferol (Vitamin D3) 25 MCG Tab PO SCH (07:12)
[2019-04-14] MEDS: Niacin 500 MG Tab PO SCH ×2 (07:12→17:20)
[2019-04-14] MEDS: LEVOTHYROXINE SODIUM 137 MCG PO SCH (19:11)
[2019-04-14] MEDS: Simvastatin 10 MG Tab PO SCH (19:12)
[2019-04-14] MEDS: buPROPion 100 MG Tab PO SCH (19:12)
[2019-04-15] MEDS: Citalopram 20 MG Tab PO SCH (07:16)
[2019-04-15] MEDS: Potassium Chloride 10% 20 MEQ/15 ML Soln 15 ML UD Cup PO SCH ×3 (07:16→19:14)
[2019-04-15] MEDS: Albuterol/Ipratropium 3.0-0.5 MG/3 ML Neb Soln NEB SCH ×2 (07:16→19:13)
[2019-04-15] MEDS: Metoclopramide 10 MG Tab PO SCH ×2 (07:16→17:00)
[2019-04-15] MEDS: Fludrocortisone 0.1 MG Tab PO SCH ×2 (07:17→19:13)
[2019-04-15] MEDS: Ibuprofen 600 MG Tab PO SCH ×2 (07:17→17:00)
[2019-04-15] MEDS: Niacin 500 MG Tab PO SCH ×2 (07:17→17:01)
[2019-04-15] MEDS: Furosemide 20 MG Tab PO SCH (07:17)
[2019-04-15] MEDS: Cyanocobalamin (Vitamin B12) 1,000 MCG Tab PO SCH (07:18)
[2019-04-15] MEDS: Cholecalciferol (Vitamin D3) 25 MCG Tab PO SCH (07:18)
[2019-04-15] MEDS: LEVOTHYROXINE SODIUM 137 MCG PO SCH (19:13)
[2019-04-15] MEDS: Simvastatin 10 MG Tab PO SCH (19:14)
[2019-04-15] MEDS: buPROPion 100 MG Tab PO SCH (19:14)
[2019-04-16] MEDS: Acetaminophen 325 MG Tab PO PRN (06:27)
[2019-04-16] MEDS: Metoclopramide 10 MG Tab PO SCH ×2 (07:59→18:19)
[2019-04-16] MEDS: Citalopram 20 MG Tab PO SCH (07:59)
[2019-04-16] MEDS: Fludrocortisone 0.1 MG Tab PO SCH ×2 (08:00→19:30)
[2019-04-16] MEDS: Furosemide 20 MG Tab PO SCH (08:00)
[2019-04-16] MEDS: Albuterol/Ipratropium 3.0-0.5 MG/3 ML Neb Soln NEB SCH ×2 (08:00→19:31)
[2019-04-16] MEDS: Ibuprofen 600 MG Tab PO SCH ×2 (08:01→18:19)
[2019-04-16] MEDS: Potassium Chloride 10% 20 MEQ/15 ML Soln 15 ML UD Cup PO SCH ×3 (08:02→19:30)
[2019-04-16] MEDS: Niacin 500 MG Tab PO SCH ×2 (08:02→18:18)
[2019-04-16] MEDS: Cyanocobalamin (Vitamin B12) 1,000 MCG Tab PO SCH (08:03)
[2019-04-16] MEDS: Cholecalciferol (Vitamin D3) 25 MCG Tab PO SCH (08:03)
[2019-04-16] MEDS: LEVOTHYROXINE SODIUM 137 MCG PO SCH (19:30)
[2019-04-16] MEDS: Simvastatin 10 MG Tab PO SCH (19:31)
[2019-04-16] MEDS: buPROPion 100 MG Tab PO SCH (19:31)
[2019-04-17] MEDS: Metoclopramide 10 MG Tab PO SCH ×2 (08:31→18:15)
[2019-04-17] MEDS: Citalopram 20 MG Tab PO SCH (08:31)
[2019-04-17] MEDS: Ibuprofen 600 MG Tab PO SCH ×2 (08:32→18:15)
[2019-04-17] MEDS: Furosemide 20 MG Tab PO SCH (08:32)
[2019-04-17] MEDS: Fludrocortisone 0.1 MG Tab PO SCH ×2 (08:32→19:26)
[2019-04-17] MEDS: Niacin 500 MG Tab PO SCH ×2 (08:32→18:16)
[2019-04-17] MEDS: Potassium Chloride 10% 20 MEQ/15 ML Soln 15 ML UD Cup PO SCH ×3 (08:33→19:25)
[2019-04-17] MEDS: Cholecalciferol (Vitamin D3) 25 MCG Tab PO SCH (08:34)
[2019-04-17] MEDS: Cyanocobalamin (Vitamin B12) 1,000 MCG Tab PO SCH (08:35)
[2019-04-17] MEDS: Albuterol/Ipratropium 3.0-0.5 MG/3 ML Neb Soln NEB SCH ×2 (08:37→19:26)
[2019-04-17] MEDS: Simvastatin 10 MG Tab PO SCH (19:26)
[2019-04-17] MEDS: buPROPion 100 MG Tab PO SCH (19:26)
[2019-04-17] MEDS: LEVOTHYROXINE SODIUM 137 MCG PO SCH (19:26)
[2019-04-18] MEDS: Fludrocortisone 0.1 MG Tab PO SCH ×2 (07:56→19:06)
[2019-04-18] MEDS: Metoclopramide 10 MG Tab PO SCH ×2 (07:56→17:54)
[2019-04-18] MEDS: Furosemide 20 MG Tab PO SCH (07:56)
[2019-04-18] MEDS: Citalopram 20 MG Tab PO SCH (07:56)
[2019-04-18] MEDS: Ibuprofen 600 MG Tab PO SCH ×2 (07:57→17:54)
[2019-04-18] MEDS: Albuterol/Ipratropium 3.0-0.5 MG/3 ML Neb Soln NEB SCH ×2 (07:58→19:07)
[2019-04-18] MEDS: Cholecalciferol (Vitamin D3) 25 MCG Tab PO SCH (07:58)
[2019-04-18] MEDS: Cyanocobalamin (Vitamin B12) 1,000 MCG Tab PO SCH (07:58)
[2019-04-18] MEDS: Niacin 500 MG Tab PO SCH ×2 (07:58→17:54)
[2019-04-18] MEDS: Potassium Chloride 10% 20 MEQ/15 ML Soln 15 ML UD Cup PO SCH ×3 (07:58→19:06)
[2019-04-18] MEDS: Simvastatin 10 MG Tab PO SCH (19:06)
[2019-04-18] MEDS: LEVOTHYROXINE SODIUM 137 MCG PO SCH (19:06)
[2019-04-18] MEDS: buPROPion 100 MG Tab PO SCH (19:06)
[2019-04-19] MEDS: Albuterol/Ipratropium 3.0-0.5 MG/3 ML Neb Soln NEB SCH ×2 (07:28→19:07)
[2019-04-19] MEDS: Potassium Chloride 10% 20 MEQ/15 ML Soln 15 ML UD Cup PO SCH ×3 (07:29→19:06)
[2019-04-19] MEDS: Ibuprofen 600 MG Tab PO SCH ×2 (07:30→17:09)
[2019-04-19] MEDS: Metoclopramide 10 MG Tab PO SCH ×2 (07:30→17:10)
[2019-04-19] MEDS: Furosemide 20 MG Tab PO SCH (07:30)
[2019-04-19] MEDS: Citalopram 20 MG Tab PO SCH (07:30)
[2019-04-19] MEDS: Fludrocortisone 0.1 MG Tab PO SCH ×2 (07:30→19:06)
[2019-04-19] MEDS: Cyanocobalamin (Vitamin B12) 1,000 MCG Tab PO SCH (07:31)
[2019-04-19] MEDS: Niacin 500 MG Tab PO SCH ×2 (07:31→17:10)
[2019-04-19] MEDS: Cholecalciferol (Vitamin D3) 25 MCG Tab PO SCH (07:31)
[2019-04-19] MEDS: Simvastatin 10 MG Tab PO SCH (19:06)
[2019-04-19] MEDS: buPROPion 100 MG Tab PO SCH (19:06)
[2019-04-19] MEDS: LEVOTHYROXINE SODIUM 137 MCG PO SCH (19:06)
[2019-04-20] MEDS: Metoclopramide 10 MG Tab PO SCH ×2 (07:48→17:58)
[2019-04-20] MEDS: Fludrocortisone 0.1 MG Tab PO SCH ×2 (07:48→19:28)
[2019-04-20] MEDS: Citalopram 20 MG Tab PO SCH (07:48)
[2019-04-20] MEDS: Furosemide 20 MG Tab PO SCH (07:49)
[2019-04-20] MEDS: Niacin 500 MG Tab PO SCH ×2 (07:49→17:58)
[2019-04-20] MEDS: Cholecalciferol (Vitamin D3) 25 MCG Tab PO SCH (07:49)
[2019-04-20] MEDS: Ibuprofen 600 MG Tab PO SCH ×2 (07:49→17:58)
[2019-04-20] MEDS: Cyanocobalamin (Vitamin B12) 1,000 MCG Tab PO SCH (07:50)
[2019-04-20] MEDS: Albuterol/Ipratropium 3.0-0.5 MG/3 ML Neb Soln NEB SCH ×2 (07:50→19:28)
[2019-04-20] MEDS: Potassium Chloride 10% 20 MEQ/15 ML Soln 15 ML UD Cup PO SCH ×3 (07:51→19:29)
[2019-04-20] MEDS: LEVOTHYROXINE SODIUM 137 MCG PO SCH (19:28)
[2019-04-20] MEDS: buPROPion 100 MG Tab PO SCH (19:29)
[2019-04-20] MEDS: Simvastatin 10 MG Tab PO SCH (19:29)
[2019-04-21] MEDS: Fludrocortisone 0.1 MG Tab PO SCH ×2 (07:32→19:30)
[2019-04-21] MEDS: Furosemide 20 MG Tab PO SCH (07:32)
[2019-04-21] MEDS: Metoclopramide 10 MG Tab PO SCH ×2 (07:32→18:03)
[2019-04-21] MEDS: Citalopram 20 MG Tab PO SCH (07:32)
[2019-04-21] MEDS: Niacin 500 MG Tab PO SCH ×2 (07:33→18:03)
[2019-04-21] MEDS: Ibuprofen 600 MG Tab PO SCH ×2 (07:33→18:03)
[2019-04-21] MEDS: Potassium Chloride 10% 20 MEQ/15 ML Soln 15 ML UD Cup PO SCH ×3 (07:34→19:31)
[2019-04-21] MEDS: Cholecalciferol (Vitamin D3) 25 MCG Tab PO SCH (07:35)
[2019-04-21] MEDS: Cyanocobalamin (Vitamin B12) 1,000 MCG Tab PO SCH (07:35)
[2019-04-21] MEDS: Albuterol/Ipratropium 3.0-0.5 MG/3 ML Neb Soln NEB SCH ×2 (08:46→19:30)
[2019-04-21] MEDS: buPROPion 100 MG Tab PO SCH (19:31)
[2019-04-21] MEDS: LEVOTHYROXINE SODIUM 137 MCG PO SCH (19:31)
[2019-04-21] MEDS: Simvastatin 10 MG Tab PO SCH (19:32)
[2019-04-22] MEDS: Acetaminophen 325 MG Tab PO PRN (01:22)
[2019-04-22] MEDS: Ibuprofen 600 MG Tab PO PRN (04:04)
[2019-04-22] MEDS: Potassium Chloride 10% 20 MEQ/15 ML Soln 15 ML UD Cup PO SCH ×3 (08:02→19:19)
[2019-04-22] MEDS: Metoclopramide 10 MG Tab PO SCH ×2 (08:02→17:33)
[2019-04-22] MEDS: Fludrocortisone 0.1 MG Tab PO SCH ×2 (08:03→19:18)
[2019-04-22] MEDS: Citalopram 20 MG Tab PO SCH (08:03)
[2019-04-22] MEDS: Albuterol/Ipratropium 3.0-0.5 MG/3 ML Neb Soln NEB SCH ×2 (08:03→19:20)
[2019-04-22] MEDS: Furosemide 20 MG Tab PO SCH (08:03)
[2019-04-22] MEDS: Niacin 500 MG Tab PO SCH ×2 (08:04→17:34)
[2019-04-22] MEDS: Ibuprofen 600 MG Tab PO SCH ×2 (08:04→17:33)
[2019-04-22] MEDS: Cyanocobalamin (Vitamin B12) 1,000 MCG Tab PO SCH (08:05)
[2019-04-22] MEDS: Cholecalciferol (Vitamin D3) 25 MCG Tab PO SCH (08:05)
[2019-04-22] MEDS: LEVOTHYROXINE SODIUM 137 MCG PO SCH (19:18)
[2019-04-22] MEDS: buPROPion 100 MG Tab PO SCH (19:19)
[2019-04-22] MEDS: Simvastatin 10 MG Tab PO SCH (19:19)
[2019-04-23] MEDS: Potassium Chloride 10% 20 MEQ/15 ML Soln 15 ML UD Cup PO SCH ×3 (07:28→19:19)
[2019-04-23] MEDS: Albuterol/Ipratropium 3.0-0.5 MG/3 ML Neb Soln NEB SCH ×2 (07:29→19:18)
[2019-04-23] MEDS: Citalopram 20 MG Tab PO SCH (07:29)
[2019-04-23] MEDS: Metoclopramide 10 MG Tab PO SCH ×2 (07:29→17:09)
[2019-04-23] MEDS: Furosemide 20 MG Tab PO SCH (07:30)
[2019-04-23] MEDS: Fludrocortisone 0.1 MG Tab PO SCH ×2 (07:30→19:18)
[2019-04-23] MEDS: Niacin 500 MG Tab PO SCH ×2 (07:31→17:09)
[2019-04-23] MEDS: Cyanocobalamin (Vitamin B12) 1,000 MCG Tab PO SCH (07:31)
[2019-04-23] MEDS: Ibuprofen 600 MG Tab PO SCH ×2 (07:31→17:09)
[2019-04-23] MEDS: Cholecalciferol (Vitamin D3) 25 MCG Tab PO SCH (07:31)
[2019-04-23] MEDS: LEVOTHYROXINE SODIUM 137 MCG PO SCH (19:18)
[2019-04-23] MEDS: buPROPion 100 MG Tab PO SCH (19:19)
[2019-04-23] MEDS: Simvastatin 10 MG Tab PO SCH (19:19)
[2019-04-24] MEDS: Metoclopramide 10 MG Tab PO SCH ×2 (07:53→17:24)
[2019-04-24] MEDS: Citalopram 20 MG Tab PO SCH (07:53)
[2019-04-24] MEDS: Albuterol/Ipratropium 3.0-0.5 MG/3 ML Neb Soln NEB SCH ×2 (07:53→19:28)
[2019-04-24] MEDS: Ibuprofen 600 MG Tab PO SCH ×2 (07:54→17:24)
[2019-04-24] MEDS: Fludrocortisone 0.1 MG Tab PO SCH ×2 (07:54→19:28)
[2019-04-24] MEDS: Furosemide 20 MG Tab PO SCH (07:54)
[2019-04-24] MEDS: Cyanocobalamin (Vitamin B12) 1,000 MCG Tab PO SCH (07:55)
[2019-04-24] MEDS: Niacin 500 MG Tab PO SCH ×2 (07:55→17:25)
[2019-04-24] MEDS: Potassium Chloride 10% 20 MEQ/15 ML Soln 15 ML UD Cup PO SCH ×3 (07:56→19:30)
[2019-04-24] MEDS: Cholecalciferol (Vitamin D3) 25 MCG Tab PO SCH (07:56)
[2019-04-24] MEDS: LEVOTHYROXINE SODIUM 137 MCG PO SCH (19:29)
[2019-04-24] MEDS: Acetaminophen 325 MG Tab PO PRN (19:29)
[2019-04-24] MEDS: buPROPion 100 MG Tab PO SCH (19:29)
[2019-04-24] MEDS: Simvastatin 10 MG Tab PO SCH (19:29)
[2019-04-25] MEDS: Metoclopramide 10 MG Tab PO SCH ×2 (08:17→17:18)
[2019-04-25] MEDS: Ibuprofen 600 MG Tab PO SCH ×2 (08:18→17:18)
[2019-04-25] MEDS: Albuterol/Ipratropium 3.0-0.5 MG/3 ML Neb Soln NEB SCH ×2 (08:18→19:34)
[2019-04-25] MEDS: Furosemide 20 MG Tab PO SCH (08:18)
[2019-04-25] MEDS: Citalopram 20 MG Tab PO SCH (08:18)
[2019-04-25] MEDS: Fludrocortisone 0.1 MG Tab PO SCH ×2 (08:18→19:27)
[2019-04-25] MEDS: Niacin 500 MG Tab PO SCH ×2 (08:19→17:19)
[2019-04-25] MEDS: Potassium Chloride 10% 20 MEQ/15 ML Soln 15 ML UD Cup PO SCH ×3 (08:19→19:28)
[2019-04-25] MEDS: Cholecalciferol (Vitamin D3) 25 MCG Tab PO SCH (08:20)
[2019-04-25] MEDS: Cyanocobalamin (Vitamin B12) 1,000 MCG Tab PO SCH (08:20)
[2019-04-25] MEDS: Ibuprofen 600 MG Tab PO PRN (19:26)
[2019-04-25] MEDS: Simvastatin 10 MG Tab PO SCH (19:27)
[2019-04-25] MEDS: LEVOTHYROXINE SODIUM 137 MCG PO SCH (19:27)
[2019-04-25] MEDS: buPROPion 100 MG Tab PO SCH (19:27)
[2019-04-26] MEDS: Albuterol/Ipratropium 3.0-0.5 MG/3 ML Neb Soln NEB SCH ×2 (07:22→20:00)
[2019-04-26] MEDS: Furosemide 20 MG Tab PO SCH (07:58)
[2019-04-26] MEDS: Metoclopramide 10 MG Tab PO SCH ×2 (07:58→17:46)
[2019-04-26] MEDS: Citalopram 20 MG Tab PO SCH (07:58)
[2019-04-26] MEDS: Fludrocortisone 0.1 MG Tab PO SCH ×2 (07:58→20:00)
[2019-04-26] MEDS: Ibuprofen 600 MG Tab PO SCH ×2 (07:59→17:47)
[2019-04-26] MEDS: Niacin 500 MG Tab PO SCH ×2 (08:01→17:48)
[2019-04-26] MEDS: Potassium Chloride 10% 20 MEQ/15 ML Soln 15 ML UD Cup PO SCH ×3 (08:05→20:00)
[2019-04-26] MEDS: Cholecalciferol (Vitamin D3) 25 MCG Tab PO SCH (08:07)
[2019-04-26] MEDS: Cyanocobalamin (Vitamin B12) 1,000 MCG Tab PO SCH (08:07)
[2019-04-26] MEDS: LEVOTHYROXINE SODIUM 137 MCG PO SCH (20:00)
[2019-04-26] MEDS: buPROPion 100 MG Tab PO SCH (20:01)
[2019-04-26] MEDS: Simvastatin 10 MG Tab PO SCH (20:01)
[2019-04-27] MEDS: Potassium Chloride 10% 20 MEQ/15 ML Soln 15 ML UD Cup PO SCH ×3 (07:27→19:36)
[2019-04-27] MEDS: Citalopram 20 MG Tab PO SCH (07:28)
[2019-04-27] MEDS: Furosemide 20 MG Tab PO SCH (07:28)
[2019-04-27] MEDS: Albuterol/Ipratropium 3.0-0.5 MG/3 ML Neb Soln NEB SCH ×2 (07:28→19:39)
[2019-04-27] MEDS: Metoclopramide 10 MG Tab PO SCH ×2 (07:28→17:16)
[2019-04-27] MEDS: Fludrocortisone 0.1 MG Tab PO SCH ×2 (07:28→19:35)
[2019-04-27] MEDS: Ibuprofen 600 MG Tab PO SCH ×2 (07:29→17:16)
[2019-04-27] MEDS: Cyanocobalamin (Vitamin B12) 1,000 MCG Tab PO SCH (07:29)
[2019-04-27] MEDS: Niacin 500 MG Tab PO SCH ×2 (07:29→17:17)
[2019-04-27] MEDS: Cholecalciferol (Vitamin D3) 25 MCG Tab PO SCH (07:29)
[2019-04-27 08:08] LABS: HEMOGLOBIN A1C 5.3 % (4.3-5.7)
[2019-04-27 08:42] LABS: CHLORIDE,CL 106 mmol/L (98-107); SODIUM,NA 144 mmol/L (136-145)
--- NOTE | 2019-04-27 10:49 | PCM.PN ---
- General Info Date of Service: 04/27/19 Admission Dx/Problem (Free Text): Myotonic dystrophy Functional Status: Reports: Pain Controlled, Tolerating Diet, Ambulating, Urinating, Incentive Spirometry. Denies: New Symptoms Pain Score: 0 - Review of Systems General: Reports: Weakness (Stable chronic). Denies: Fatigue, Malaise, Chills, Night Sweats, Appetite (Good) HEENT: Denies: Ear Pain, Eye Pain, Glasses, Headaches, Post Nasal Drip, Sinus Congestion, Sore Throat, Rhinitis, Visual Changes Pulmonary: Reports: No Symptoms. Denies: Shortness of Breath, Pleuritic Chest Pain, Cough, Sputum, Hemoptysis, Wheezing Cardiovascular: Reports: Edema (Stable dependent). Denies: Chest Pain, Palpitations, Dyspnea on Exertion, Orthopnea, PND, Lightheadedness Gastrointestinal: Reports: No Symptoms. Denies: Abdominal Pain, Constipation, Decreased Appetite, Diarrhea, Difficulty Swallowing, Flatus, Hematochezia, Melena, Nausea, Vomiting Genitourinary: Reports: No Symptoms. Denies: Dysuria, Frequency, Burning, Pain , Urgency, Incontinence, Hematuria, Retention, Flank Pain Musculoskeletal: Reports: No Symptoms. Denies: Neck Pain, Shoulder Pain, Arm Pain, Hand Pain, Back Pain, Leg Pain, Foot Pain, Joint Pain, Joint Swelling Skin: Reports: No Symptoms. Denies: Diaphoresis, Bruising Neurological: Reports: Difficulty Walking (Stable chronic), Weakness (Stable chronic), Other (Recurrent falls improved). Denies: Confusion, Dizziness, Headache, Numbness, Syncope, Tingling Psychiatric: Reports: No Symptoms. Denies: Confusion, Depression, Anxiety, Agitation, Hallucinations - Patient Data Vitals - Most Recent: Last Vital Signs Temp 36.1 C 04/20/19 08:00 Pulse 75 04/20/19 08:00 Resp 18 04/20/19 08:00 BP 116/72 04/20/19 08:00 Pulse Ox 91 L 04/20/19 08:00 Weight - Most Recent: 101.605 kg (0.5 kg weight loss) I&O - Last 24 Hours: Intake & Output 04/26/19 04/27/19 04/27/19 22:59 06:59 14:59 Intake Total 790 640 Balance 790 640 Imaging Impressions - Last 24 Hours: Chest x-ray, PA and lateral, shows evidence of moderate kyphosis, osteoarthritis , and osteoporosis. Additional stable moderately elevated right hemidiaphragm with improved atelectasis of the right lower lobe. Moderate COPD changes with no pulmonary infiltrates, pneumothorax, CHF, or cardiomegaly. Somewhat prominent proximal aortic arch Lab Results Last 24 Hours: Laboratory Results - last 24 hr 04/27/19 04/27/19 04/27/19 Range/Units 07:20 07:20 07:20 WBC 6.0 (4.0-10.2) K/uL RBC 4.09 (3.77-5.09) M/uL Hgb 14.2 (11.7-15.5) g/dL Hct 42.8 (34.0-46.0) % MCV 104.6 H D (84.0-98.0) fL MCH 34.7 H (28.2-33.3) pg MCHC 33.2 (31.7-36.0) g/dL RDW 13.8 (11.2-14.1) % Plt Count 161 (150-350) K/uL Neut % (Auto) 74.2 (45.0-80.0) % Lymph % (Auto) 20.5 (10.0-50.0) % [place] % (Auto) 3.0 (2.0-14.0) % Eos % (Auto) 2.0 (0.0-5.0) % Baso % (Auto) 0.3 (0.0-2.0) % Neut # (Auto) 4.45 (1.40-7.00) K/uL Lymph # (Auto) 1.23 (0.50-3.50) K/uL [place] # (Auto) 0.18 (0.00-1.00) K/uL Eos # (Auto) 0.12 (0.00-0.50) K/uL Baso # (Auto) 0.02 (0.00-0.20) K/uL Sodium 144 (136-145) mmol/L Potassium 4.0 (3.5-5.1) mmol/L Chloride 106 (98-107) mmol/L Carbon Dioxide 32.5 H (21.0-32.0) mmol/L BUN 11 (7-18) mg/dL Creatinine 0.55 (0.51-1.17) mg/dL Est Cr Clr Drug Dosing 104.94 mL/min Estimated GFR (MDRD) > 60 mL/min Glucose 106 (74-106) mg/dL Hemoglobin A1c 5.3 (4.3-5.7) % Uric Acid 5.7 (2.6-7.2) mg/dL Calcium 9.4 (8.5-10.1) mg/dL Magnesium 2.0 (1.8-2.4) mg/dL Total Bilirubin 0.3 (0.2-1.0) mg/dL AST 19 (15-37) U/L ALT 28 (12-78) U/L Alkaline Phosphatase 140 H (46-116) IU/L Creatine Kinase (26-308) U/L Creatine Kinase Index (0.0-2.5) % CK-MB (CK-2) (0.00-3.60) ng/mL Troponin I 0.000 (0.000-0.056) ng/mL NT-Pro-B Natriuret Pep 42 (0-125) pg/mL Total Protein 6.2 L (6.4-8.2) g/dL Albumin 3.2 L (3.4-5.0) g/dL Triglycerides 281 H (30-150) mg/dL Cholesterol 168 (100-200) mg/dL LDL Cholesterol, Calc 58 (0-100) mg/dL HDL Cholesterol 54 (40-60) mg/dL Vitamin B12 897 (193-986) pg/mL Folate 9.2 (8.6-58.9) ng/mL TSH, Ultra Sensitive 3.291 (0.358-3.740) mIU/mL 04/27/19 Range/Units 07:20 WBC (4.0-10.2) K/uL RBC (3.77-5.09) M/uL Hgb (11.7-15.5) g/dL Hct (34.0-46.0) % MCV (84.0-98.0) fL MCH (28.2-33.3) pg MCHC (31.7-36.0) g/dL RDW (11.2-14.1) % Plt Count (150-350) K/uL Neut % (Auto) (45.0-80.0) % Lymph % (Auto) (10.0-50.0) % [place] % (Auto) (2.0-14.0) % Eos % (Auto) (0.0-5.0) % Baso % (Auto) (0.0-2.0) % Neut # (Auto) (1.40-7.00) K/uL Lymph # (Auto) (0.50-3.50) K/uL [place] # (Auto) (0.00-1.00) K/uL Eos # (Auto) (0.00-0.50) K/uL Baso # (Auto) (0.00-0.20) K/uL Sodium (136-145) mmol/L Potassium (3.5-5.1) mmol/L Chloride (98-107) mmol/L Carbon Dioxide (21.0-32.0) mmol/L BUN (7-18) mg/dL Creatinine (0.51-1.17) mg/dL Est Cr Clr Drug Dosing mL/min Estimated GFR (MDRD) mL/min Glucose (74-106) mg/dL Hemoglobin A1c (4.3-5.7) % Uric Acid (2.6-7.2) mg/dL Calcium (8.5-10.1) mg/dL Magnesium (1.8-2.4) mg/dL Total Bilirubin (0.2-1.0) mg/dL AST (15-37) U/L ALT (12-78) U/L Alkaline Phosphatase (46-116) IU/L Creatine Kinase 120 (26-308) U/L Creatine Kinase Index 1.3 (0.0-2.5) % CK-MB (CK-2) 1.50 (0.00-3.60) ng/mL Troponin I (0.000-0.056) ng/mL NT-Pro-B Natriuret Pep (0-125) pg/mL Total Protein (6.4-8.2) g/dL Albumin (3.4-5.0) g/dL Triglycerides (30-150) mg/dL Cholesterol (100-200) mg/dL LDL Cholesterol, Calc (0-100) mg/dL HDL Cholesterol (40-60) mg/dL Vitamin B12 (193-986) pg/mL Folate (8.6-58.9) ng/mL TSH, Ultra Sensitive (0.358-3.740) mIU/mL [place] Results Last 24 Hours: None Med Orders - Current: Current Medications Acetaminophen (Tylenol) 650 mg PO Q4H PRN PRN Reason: Pain Last Admin: 04/24/19 19:29 Dose: 650 mg Al Hydroxide/Mg Hydroxide (Mag-Al Plus) 30 ml PO Q4H PRN PRN Reason: Indigestion Albuterol/Ipratropium (Duoneb 3.0-0.5 Mg/3 Ml) 3 ml NEB BIDRT [facility] Last Admin: 04/27/19 07:28 Dose: 3 ml Albuterol/Ipratropium (Duoneb 3.0-0.5 Mg/3 Ml) 3 ml NEB Q4HRRT PRN PRN Reason: Dyspnea Last Admin: 12/29/18 00:16 Dose: 3 ml Bupropion HCl (Wellbutrin) 150 mg PO BEDTIME [facility] Last Admin: 04/26/19 20:01 Dose: 150 mg Calcium Carbonate/Glycine (Tums Extra Strength) 750 mg PO Q2HR PRN PRN Reason: Indigestion Last Admin: 03/03/19 20:40 Dose: 750 mg Cholecalciferol (Vitamin D3) [facility] [place] Last Admin: 04/27/19 07:29 Dose: 1,000 units Citalopram Hydrobromide (Celexa) 20 mg PO QAM [facility] Last Admin: 04/27/19 07:28 Dose: 20 mg Clotrimazole (Lotrimin Af 1% Crm) 1 gm TOP BID PRN PRN Reason: Rash Last Admin: 07/18/18 08:50 Dose: 1 applic Cyanocobalamin (Vitamin B12) 1,000 mcg [facility] [place] Last Admin: 04/27/19 07:29 Dose: 1,000 mcg Diphenhydramine HCl (Benadryl) 25 mg PO Q4H PRN PRN Reason: Itching Fludrocortisone Acetate (Florinef) 0.1 mg PO BEDTIME [facility] Last Admin: 04/26/19 20:00 Dose: 0.1 mg Fludrocortisone Acetate (Florinef) 0.2 mg PO [facility] Last Admin: 04/27/19 07:28 Dose: 0.2 mg Furosemide (Lasix) 20 mg PO DAILY [facility] Last Admin: 04/27/19 07:28 Dose: 20 mg Guaifenesin/Dextromethorphan (Robitussin Dm) 10 ml PO Q4H PRN PRN Reason: Cough Last Admin: 12/29/18 00:27 Dose: 10 ml Ibuprofen (Motrin) 600 mg PO BID [facility] Last Admin: 04/27/19 07:29 Dose: 600 mg Ibuprofen (Motrin) 600 mg PO Q6H PRN PRN Reason: Breakthrough Pain Last Admin: 04/25/19 19:26 Dose: 600 mg Metoclopramide HCl (Reglan) 10 mg PO BIDAC [facility] Last Admin: 04/27/19 07:28 Dose: 10 mg Niacin (Niacin) 500 mg PO BID [facility] Last Admin: 04/27/19 07:29 Dose: 500 mg Levothyroxine Sodium (137 Mcg Tablets) 137 mcg PO BEDTIME [facility] Last Admin: 04/26/19 20:00 Dose: 137 mcg Potassium Chloride (Potassium Chloride Solution) 40 meq PO TID@08,14,20 [facility] Last Admin: 04/27/19 07:27 Dose: 40 meq Simvastatin (Zocor) 10 mg PO BEDTIME [facility] Last Admin: 04/26/19 20:01 Dose: 10 mg Discontinued Medications Carbamide Perox/Anhydrous Glycerin (Debrox 6.5% Otic Soln) 0 ml EARBOTH BID [facility] Stop: 01/29/19 18:00 Last Admin: 01/29/19 19:25 Dose: 5 drop Chlorhexidine Gluconate (Peridex 0.12% Rinse) 15 ml MUCMEM BID@09,20 [facility] Last Admin: 05/12/18 08:41 Dose: 15 ml Diphenoxylate HCl/Atropine (Lomotil 0.025-2.5 Mg) 1 tab PO QID PRN PRN Reason: Diarrhea Last Admin: 02/09/18 09:50 Dose: 1 tab Furosemide (Lasix) 40 mg IM NOW ONE Stop: 12/10/17 11:52 Last Admin: 12/10/17 13:10 Dose: 40 mg Gentian Annita (Gentian Annita) 1 ml TOP DAILY PRN PRN Reason: Rash Stop: 07/28/18 20:00 Last Admin: 07/24/18 19:49 Dose: 1 applic Lactobacillus Rhamnosus (Culturelle) 2 cap PO BID [facility] Stop: 03/02/18 18:00 Last Admin: 03/02/18 17:10 Dose: 2 cap Metronidazole (Flagyl) 500 mg PO Q8H [facility] Stop: 02/26/18 14:01 Last Admin: 02/26/18 14:14 Dose: 500 mg Metronidazole (Flagyl) 500 mg PO TID [facility] Stop: 05/22/18 18:01 Last Admin: 05/22/18 17:55 Dose: Not Given Metronidazole (Flagyl) 500 mg PO Q8H [facility] Stop: 10/03/18 06:01 Last Admin: 10/03/18 06:02 Dose: 500 mg Cephalexin (Keflex) (500 Mg Capsules) 500 mg PO BID [facility] Last Admin: 03/11/18 07:56 Dose: 500 mg Fluconazole 150mg (Tablet) 1 each PO Q3D [facility] Stop: 12/06/17 20:01 Last Admin: 12/06/17 19:13 Dose: 1 each Fluconazole 150mg (Tab Ptom) 1 each PO ONETIME ONE Stop: 02/24/19 18:01 Last Admin: 02/24/19 17:19 Dose: 1 each Nystatin (Mycostatin) 5 ml PO QID [facility] Stop: 05/19/18 16:01 Last Admin: 05/19/18 16:00 Dose: 5 ml Omeprazole (Omeprazole) 20 mg PO DAILY [facility] Last Admin: 03/11/18 07:55 Dose: 20 mg Potassium Chloride (Klor-Con M20) 20 meq PO ONETIME ONE Stop: 12/10/17 11:53 Last Admin: 12/10/17 13:10 Dose: 20 meq Potassium Chloride (Klor-Con M20) 20 meq PO DAILY [facility] Tramadol HCl (Ultram) 50 mg PO Q6H PRN PRN Reason: Pain (severe 7-10) Last Admin: 10/28/18 08:04 Dose: 50 mg - Exam Quality Assessment: Supplemental Oxygen, DVT Prophylaxis. No: Central Line/PICC , Urine Catheter, Skin Breakdown, Restraints General: Alert, Oriented, Cooperative, No Acute Distress HEENT: Pupils Equal, Pupils Reactive, EOMI, Mucous Membr. Moist/[place], Other ( Complete dentures uppers and lowers) Neck: Supple, Trachea Midline, No JVD, No Thyromegaly. No: Lymphadenopathy, Carotid Bruit Lungs: Clear to Auscultation, Normal Respiratory Effort. No: Rub Cardiovascular: Regular Rate, Regular Rhythm, No Murmurs. No: Gallops, Rubs GI/Abdominal Exam: Normal Bowel Sounds, Soft, Non-Tender, No Organomegaly, No Distention, No Abnormal Bruit, No Mass, Other (Obese). No: Guarding (Female) Exam: Deferred Back Exam: Full Range of Motion, CVA Tenderness (L), CVA Tenderness (R), Other ( Kyphosismoderate). No: Muscle Spasm, Paraspinal Tenderness, Vertebral Tenderness Extremities: Normal Range of Motion, Non-Tender, Normal Capillary Refill, Pedal Edema (Stable mild lymphedema of the lower extremities with Xavier wraps in place) . No: Lurdes's Sign Peripheral Pulses: 2+: Radial (L), Radial (R), Dorsalis Pedis (L), Dorsalis Pedis (R) Skin: Warm, Dry, Intact. No: Ecchymosis Neurological: No New Focal Deficit, Other (No clinical orthostasis) Psy/Mental Status: Alert, Normal Affect, Normal Mood. No: Agitated, Hallucinations, Withdrawal Symptoms EKG INTERPRETATION EKG Date: 04/27/19 Time: 09:27 Rhythm: NSR Rate (Beats/Min): 76 [place]: LAD-Left [place] Deviation (Stented left cardiac axis) P-Wave: Enlarged (Mild diffuse biphasic P waves) QRS: Wide (0.14 seconds representing a complete bifascicular bundle-branch block ) ST-T: Other (T-wave inversion in leads 1 and aVL) QT: Normal ME/PQ Interval: 0.19 seconds with extreme poor R-wave progression in the anterior leads. Left ventricular hypertrophy by voltage Comparison: Change From Previous EKG (New possible lateral wall cardiac ischemia and resolved mild first-degree AV block since 04/30/18.) EKG Interpretation Comments: 1. Possible lateral wall cardiac ischemia 2. Complete bifascicular bundle-branch block 3. Left ventricular hypertrophy by voltage - Problem List & Annotations (1) Steinert myotonic dystrophy syndrome SNOMED Code(s): 158447893 Code(s): G71.11 - MYOTONIC MUSCULAR DYSTROPHY Status: Chronic Priority: Medium Current Visit: Yes Annotation/Comment:: Stable by history and today' s exam. Physical therapy in effect. Blood work and yearly labs conducted today. Continue current medical therapy. (2) CHF, Congestive heart failure SNOMED Code(s): 87598845 Code(s): I50.9 - HEART FAILURE, UNSPECIFIED Status: Chronic Priority: Medium Current Visit: Yes Annotation/Comment:: Despite newly diagnosed lateral wall cardiac ischemia by today's EKG difficult to assess secondary to her bifascicular bundle-branch block. No chest pain or anginal type symptoms. Stable CHF by clinical exam and history with no evidence of significant CHF by today's x-rays. Stable dependent edema since 12/10/17. Note 2.5 kg weight loss since last grounds 2 months ago. Her weight continues to be variable secondary to dietary noncompliance, however no direct evidence of significant weight gain or CHF as above. Note previous discontinuation of high protein Glucerna supplements as snacks. Note, however, dietary noncompliance is still an issue. Dietary consultation in effect. Activity level is overall low. Continue to observe closely. No recent anginal complaints or current clinical evidence of CHF as above. Note previous history of PVCs, complete right bundle branch block /bifascicular bundle-branch block, first-degree AV block, severe dyslipidemia hypokalemia, hypophosphatemia, and hyponatremia. Continue to observe for now with no further change in medical therapy. (3) COPD (chronic obstructive pulmonary disease) SNOMED Code(s): 34743324 Code(s): J44.9 - CHRONIC OBSTRUCTIVE PULMONARY DISEASE, UNSPECIFIED Status : Chronic Priority: Medium Current Visit: Yes Qualifiers: COPD type: unspecified COPD Qualified Code(s): J44.9 - Chronic obstructive pulmonary disease, unspecified Annotation/Comment:: O2 dependent COPD stable by history with no bronchitic symptoms at this time. Continue current medical therapy. Patient does have a previous history of distant postoperative respiratory distress, although no complications after previous dental surgery. (4) Hyperglycemia SNOMED Code(s): 58954266 Code(s): R73.9 - HYPERGLYCEMIA, UNSPECIFIED Status: Chronic Priority: Medium Current Visit: Yes Onset Date: 06/29/15 Annotation/Comment:: Note persistent dietary noncompliance with variable weights as above. Dietary consultation is in effect as above. Blood work reviewed today as above with normal Glycosylated hemoglobin. (5) Hyperlipidemia SNOMED Code(s): 89951734 Code(s): E78.5 - HYPERLIPIDEMIA, UNSPECIFIED Status: Chronic Priority: Medium Current Visit: Yes Annotation/Comment:: Lipid Panel shows mild persistent hypertriglyceridemia. Previous history of severe dyslipidemia with aggressive medical therapy at this time. Dietary compliance once again strongly encouraged. Previous lipid panel on 04/29/18 relatively stable. No change in medical therapy for now with previous history of CPK elevation. (6) Hypothyroidism SNOMED Code(s): 50180453 Code(s): E03.9 - HYPOTHYROIDISM, UNSPECIFIED Status: Chronic Priority: Medium Current Visit: Yes Annotation/Comment:: TSH normal today and on . No other thyroid type symptoms. (7) Mixed anxiety and depressive disorder SNOMED Code(s): 231338180 Code(s): F41.8 - OTHER SPECIFIED ANXIETY DISORDERS Status: Chronic Priority: Medium Current Visit: Yes Annotation/Comment:: Stable by history. Patient is still relatively active with physical therapy, social activities, etc.. Continue to observe closely by nursing staff with no significant depression at this time with patient often alone in her room. (8) Osteoarthritis SNOMED Code(s): 012584100 Code(s): M19.90 - UNSPECIFIED OSTEOARTHRITIS, UNSPECIFIED SITE Status: Chronic Priority: Medium Current Visit: Yes Annotation/Comment:: No complaints today with previous intermittent mild generalized arthralgias, however nonproblematic at this time with the patient nonsymptomatic despite discontinuation of Ultram. PT in effect as above. Note status post bilateral ankle ORIF secondary to fractures. Recent recurrent falls in February have improved with no recent significant falls or injuries. (9) UTI (urinary tract infection) SNOMED Code(s): 61470897 Code(s): N39.0 - URINARY TRACT INFECTION, SITE NOT SPECIFIED Status: Chronic Priority: Medium Current Visit: Yes Qualifiers: Hematuria presence: without hematuria Annotation/Comment:: Long History of recurrent UTIs. No current UTI symptoms despite previous discontinuation of Keflex therapy for previous recurrent UTIs. Note subsequent recurrent C. difficile infection, which has since resolved by clinical exam. Continue to observe for now with no reinitiation of antibiotic therapy. (10) C. difficile colitis SNOMED Code(s): 576478346 Code(s): A04.72 - ENTEROCOLITIS D/T CLOSTRIDIUM DIFFICILE, NOT SPCF RECUR Status: Chronic Priority: Medium Current Visit: Yes Onset Date: Annotation/Comment:: No recent diarrhea, etc. or evidence of recurrence. Central laboratories previously refused repeat stool C. difficile analysis since the patient no longer has diarrhea and that this evaluation may remain positive for several months. This issue was previously brought up in medical staff for further review and discussion with no further follow-up at this time. In the meantime strict disinfection of patient's room, clothing, etc. has been conducted. Suspect that the patient may be a carrier. Continue to observe closely, however. (11) Gastroesophageal reflux disease SNOMED Code(s): 561151223 Code(s): K21.9 - GASTRO-ESOPHAGEAL REFLUX DISEASE WITHOUT ESOPHAGITIS Status: Acute Priority: Medium Current Visit: Yes Annotation/Comment:: Stable by history with no abdominal complaints and attempt to taper patient off of Prilosec. (12) Hypoalbuminemia SNOMED Code(s): 125845309 Code(s): E88.09 - OTH DISORDERS OF PLASMA-PROTEIN METABOLISM, NEC Status: Chronic Priority: Medium Current Visit: Yes Annotation/Comment:: Glucerna high-protein has been discontinued per recommendations from dietitian secondary to persistent weight gain. Continue high-protein diet as above. Observe for now. - Problem List Review Problem List Initiated/Reviewed/Updated: Yes - My Orders Last 24 Hours: My Active Orders 04/27/19 05:11 EKG Documentation Completion [RC] ASDIRECTED Chest 2V [CR] Routine 04/28/19 13:00 Screening Tomosynthesis Bi [MY] Routine 05/07/19 13:00 Screening Tomosynthesis Bi [MY] Routine - Assessment Assessment:: As above - Plan Plan:: As above. The patient is recertified for swing bed care for an additional 2 months. Note that mammogram report from 11/05/18 was reviewed with stable findings and recommended repeat mammogram in 6 months, which has already been rescheduled for May 09, 2019. Extensive precautions were given to the patient, who is in agreement with the treatment plan.
[2019-04-27] MEDS: LEVOTHYROXINE SODIUM 137 MCG PO SCH (19:35)
[2019-04-27] MEDS: Simvastatin 10 MG Tab PO SCH (19:36)
[2019-04-27] MEDS: buPROPion 100 MG Tab PO SCH (19:36)
[2019-04-28] MEDS: Albuterol/Ipratropium 3.0-0.5 MG/3 ML Neb Soln NEB SCH ×2 (07:27→19:26)
[2019-04-28] MEDS: Metoclopramide 10 MG Tab PO SCH ×2 (07:28→17:13)
[2019-04-28] MEDS: Potassium Chloride 10% 20 MEQ/15 ML Soln 15 ML UD Cup PO SCH ×3 (07:28→19:26)
[2019-04-28] MEDS: Citalopram 20 MG Tab PO SCH (07:29)
[2019-04-28] MEDS: Fludrocortisone 0.1 MG Tab PO SCH ×2 (07:29→19:26)
[2019-04-28] MEDS: Furosemide 20 MG Tab PO SCH (07:29)
[2019-04-28] MEDS: Ibuprofen 600 MG Tab PO SCH ×2 (07:29→17:13)
[2019-04-28] MEDS: Cholecalciferol (Vitamin D3) 25 MCG Tab PO SCH (07:30)
[2019-04-28] MEDS: Cyanocobalamin (Vitamin B12) 1,000 MCG Tab PO SCH (07:30)
[2019-04-28] MEDS: Niacin 500 MG Tab PO SCH ×2 (07:30→17:14)
[2019-04-28] MEDS: Simvastatin 10 MG Tab PO SCH (19:26)
[2019-04-28] MEDS: buPROPion 100 MG Tab PO SCH (19:26)
[2019-04-28] MEDS: LEVOTHYROXINE SODIUM 137 MCG PO SCH (19:26)
[2019-04-28] MEDS: Acetaminophen 325 MG Tab PO PRN (19:44)
[2019-04-29] MEDS: Citalopram 20 MG Tab PO SCH (08:39)
[2019-04-29] MEDS: Metoclopramide 10 MG Tab PO SCH ×2 (08:39→17:49)
[2019-04-29] MEDS: Fludrocortisone 0.1 MG Tab PO SCH ×2 (08:40→19:19)
[2019-04-29] MEDS: Furosemide 20 MG Tab PO SCH (08:40)
[2019-04-29] MEDS: Albuterol/Ipratropium 3.0-0.5 MG/3 ML Neb Soln NEB SCH ×2 (08:40→19:19)
[2019-04-29] MEDS: Ibuprofen 600 MG Tab PO SCH ×2 (08:41→17:49)
[2019-04-29] MEDS: Niacin 500 MG Tab PO SCH ×2 (08:41→17:50)
[2019-04-29] MEDS: Potassium Chloride 10% 20 MEQ/15 ML Soln 15 ML UD Cup PO SCH ×3 (08:41→19:20)
[2019-04-29] MEDS: Cyanocobalamin (Vitamin B12) 1,000 MCG Tab PO SCH (08:42)
[2019-04-29] MEDS: Cholecalciferol (Vitamin D3) 25 MCG Tab PO SCH (08:42)
[2019-04-29] MEDS: buPROPion 100 MG Tab PO SCH (19:19)
[2019-04-29] MEDS: LEVOTHYROXINE SODIUM 137 MCG PO SCH (19:19)
[2019-04-29] MEDS: Simvastatin 10 MG Tab PO SCH (19:19)
[2019-04-30] MEDS: Metoclopramide 10 MG Tab PO SCH ×2 (08:15→17:54)
[2019-04-30] MEDS: Citalopram 20 MG Tab PO SCH (08:16)
[2019-04-30] MEDS: Albuterol/Ipratropium 3.0-0.5 MG/3 ML Neb Soln NEB SCH ×2 (08:16→19:31)
[2019-04-30] MEDS: Fludrocortisone 0.1 MG Tab PO SCH ×2 (08:16→19:31)
[2019-04-30] MEDS: Furosemide 20 MG Tab PO SCH (08:17)
[2019-04-30] MEDS: Ibuprofen 600 MG Tab PO SCH ×2 (08:17→17:54)
[2019-04-30] MEDS: Niacin 500 MG Tab PO SCH ×2 (08:18→17:55)
[2019-04-30] MEDS: Potassium Chloride 10% 20 MEQ/15 ML Soln 15 ML UD Cup PO SCH ×3 (08:18→19:33)
[2019-04-30] MEDS: Cyanocobalamin (Vitamin B12) 1,000 MCG Tab PO SCH (08:20)
[2019-04-30] MEDS: Cholecalciferol (Vitamin D3) 25 MCG Tab PO SCH (08:20)
[2019-04-30] MEDS: Simvastatin 10 MG Tab PO SCH (19:32)
[2019-04-30] MEDS: LEVOTHYROXINE SODIUM 137 MCG PO SCH (19:32)
[2019-04-30] MEDS: buPROPion 100 MG Tab PO SCH (19:32)
[2019-04-30] MEDS: Acetaminophen 325 MG Tab PO PRN (19:33)
[2019-05-01] MEDS: Acetaminophen 325 MG Tab PO PRN ×3 (03:40→19:28)
[2019-05-01] MEDS: Citalopram 20 MG Tab PO SCH (08:21)
[2019-05-01] MEDS: Metoclopramide 10 MG Tab PO SCH ×2 (08:21→18:00)
[2019-05-01] MEDS: Fludrocortisone 0.1 MG Tab PO SCH ×2 (08:21→19:26)
[2019-05-01] MEDS: Furosemide 20 MG Tab PO SCH (08:22)
[2019-05-01] MEDS: Ibuprofen 600 MG Tab PO SCH ×2 (08:22→18:00)
[2019-05-01] MEDS: Niacin 500 MG Tab PO SCH ×2 (08:22→18:01)
[2019-05-01] MEDS: Albuterol/Ipratropium 3.0-0.5 MG/3 ML Neb Soln NEB SCH ×2 (08:23→19:26)
[2019-05-01] MEDS: Potassium Chloride 10% 20 MEQ/15 ML Soln 15 ML UD Cup PO SCH ×3 (08:23→19:27)
[2019-05-01] MEDS: Cyanocobalamin (Vitamin B12) 1,000 MCG Tab PO SCH (08:24)
[2019-05-01] MEDS: Cholecalciferol (Vitamin D3) 25 MCG Tab PO SCH (08:24)
[2019-05-01] MEDS: LEVOTHYROXINE SODIUM 137 MCG PO SCH (19:26)
[2019-05-01] MEDS: buPROPion 100 MG Tab PO SCH (19:26)
[2019-05-01] MEDS: Simvastatin 10 MG Tab PO SCH (19:26)
[2019-05-02] MEDS: Citalopram 20 MG Tab PO SCH (08:22)
[2019-05-02] MEDS: Metoclopramide 10 MG Tab PO SCH ×2 (08:22→17:43)
[2019-05-02] MEDS: Fludrocortisone 0.1 MG Tab PO SCH ×2 (08:22→19:29)
[2019-05-02] MEDS: Ibuprofen 600 MG Tab PO SCH ×2 (08:23→17:43)
[2019-05-02] MEDS: Cholecalciferol (Vitamin D3) 25 MCG Tab PO SCH (08:23)
[2019-05-02] MEDS: Furosemide 20 MG Tab PO SCH (08:23)
[2019-05-02] MEDS: Albuterol/Ipratropium 3.0-0.5 MG/3 ML Neb Soln NEB SCH ×2 (08:24→19:29)
[2019-05-02] MEDS: Niacin 500 MG Tab PO SCH ×2 (08:24→17:42)
[2019-05-02] MEDS: Cyanocobalamin (Vitamin B12) 1,000 MCG Tab PO SCH (08:24)
[2019-05-02] MEDS: Potassium Chloride 10% 20 MEQ/15 ML Soln 15 ML UD Cup PO SCH ×3 (08:25→19:30)
[2019-05-02] MEDS: LEVOTHYROXINE SODIUM 137 MCG PO SCH (19:29)
[2019-05-02] MEDS: buPROPion 100 MG Tab PO SCH (19:30)
[2019-05-02] MEDS: Acetaminophen 325 MG Tab PO PRN (19:31)
[2019-05-02] MEDS: Simvastatin 10 MG Tab PO SCH (19:31)
[2019-05-03] MEDS: Albuterol/Ipratropium 3.0-0.5 MG/3 ML Neb Soln NEB SCH ×2 (07:39→19:13)
[2019-05-03] MEDS: Metoclopramide 10 MG Tab PO SCH ×2 (07:40→17:09)
[2019-05-03] MEDS: Niacin 500 MG Tab PO SCH ×2 (07:40→17:10)
[2019-05-03] MEDS: Furosemide 20 MG Tab PO SCH (07:40)
[2019-05-03] MEDS: Fludrocortisone 0.1 MG Tab PO SCH ×2 (07:40→19:13)
[2019-05-03] MEDS: Ibuprofen 600 MG Tab PO SCH ×2 (07:40→17:10)
[2019-05-03] MEDS: Citalopram 20 MG Tab PO SCH (07:40)
[2019-05-03] MEDS: Potassium Chloride 10% 20 MEQ/15 ML Soln 15 ML UD Cup PO SCH ×3 (07:41→19:15)
[2019-05-03] MEDS: Cholecalciferol (Vitamin D3) 25 MCG Tab PO SCH (07:41)
[2019-05-03] MEDS: Cyanocobalamin (Vitamin B12) 1,000 MCG Tab PO SCH (07:41)
[2019-05-03] MEDS: LEVOTHYROXINE SODIUM 137 MCG PO SCH (19:14)
[2019-05-03] MEDS: buPROPion 100 MG Tab PO SCH (19:14)
[2019-05-03] MEDS: Simvastatin 10 MG Tab PO SCH (19:14)
[2019-05-04] MEDS: Acetaminophen 325 MG Tab PO PRN ×2 (00:53→19:18)
[2019-05-04] MEDS: Citalopram 20 MG Tab PO SCH (07:08)
[2019-05-04] MEDS: Fludrocortisone 0.1 MG Tab PO SCH ×2 (07:08→19:01)
[2019-05-04] MEDS: Ibuprofen 600 MG Tab PO SCH ×2 (07:08→17:21)
[2019-05-04] MEDS: Metoclopramide 10 MG Tab PO SCH ×2 (07:08→17:20)
[2019-05-04] MEDS: Albuterol/Ipratropium 3.0-0.5 MG/3 ML Neb Soln NEB SCH ×2 (07:08→19:00)
[2019-05-04] MEDS: Furosemide 20 MG Tab PO SCH (07:08)
[2019-05-04] MEDS: Niacin 500 MG Tab PO SCH ×2 (07:08→17:19)
[2019-05-04] MEDS: Cyanocobalamin (Vitamin B12) 1,000 MCG Tab PO SCH (07:09)
[2019-05-04] MEDS: Cholecalciferol (Vitamin D3) 25 MCG Tab PO SCH (07:09)
[2019-05-04] MEDS: Potassium Chloride 10% 20 MEQ/15 ML Soln 15 ML UD Cup PO SCH ×3 (07:09→19:03)
[2019-05-04] MEDS: LEVOTHYROXINE SODIUM 137 MCG PO SCH (19:02)
[2019-05-04] MEDS: buPROPion 100 MG Tab PO SCH (19:02)
[2019-05-04] MEDS: Simvastatin 10 MG Tab PO SCH (19:03)
[2019-05-05] MEDS: Metoclopramide 10 MG Tab PO SCH ×2 (07:36→17:49)
[2019-05-05] MEDS: Furosemide 20 MG Tab PO SCH (07:37)
[2019-05-05] MEDS: Albuterol/Ipratropium 3.0-0.5 MG/3 ML Neb Soln NEB SCH ×2 (07:37→19:22)
[2019-05-05] MEDS: Citalopram 20 MG Tab PO SCH (07:37)
[2019-05-05] MEDS: Fludrocortisone 0.1 MG Tab PO SCH ×2 (07:37→19:22)
[2019-05-05] MEDS: Niacin 500 MG Tab PO SCH ×2 (07:38→17:50)
[2019-05-05] MEDS: Potassium Chloride 10% 20 MEQ/15 ML Soln 15 ML UD Cup PO SCH ×3 (07:38→19:23)
[2019-05-05] MEDS: Ibuprofen 600 MG Tab PO SCH ×2 (07:38→17:49)
[2019-05-05] MEDS: Cyanocobalamin (Vitamin B12) 1,000 MCG Tab PO SCH (07:39)
[2019-05-05] MEDS: Cholecalciferol (Vitamin D3) 25 MCG Tab PO SCH (07:40)
[2019-05-05] MEDS: Acetaminophen 325 MG Tab PO PRN ×2 (14:37→19:25)
[2019-05-05] MEDS: LEVOTHYROXINE SODIUM 137 MCG PO SCH (19:22)
[2019-05-05] MEDS: Simvastatin 10 MG Tab PO SCH (19:23)
[2019-05-05] MEDS: buPROPion 100 MG Tab PO SCH (19:23)
[2019-05-06] MEDS: Citalopram 20 MG Tab PO SCH (08:08)
[2019-05-06] MEDS: Ibuprofen 600 MG Tab PO SCH ×2 (08:09→18:09)
[2019-05-06] MEDS: Fludrocortisone 0.1 MG Tab PO SCH ×2 (08:09→19:53)
[2019-05-06] MEDS: Metoclopramide 10 MG Tab PO SCH ×2 (08:09→18:10)
[2019-05-06] MEDS: Furosemide 20 MG Tab PO SCH (08:09)
[2019-05-06] MEDS: Niacin 500 MG Tab PO SCH ×2 (08:10→18:09)
[2019-05-06] MEDS: Albuterol/Ipratropium 3.0-0.5 MG/3 ML Neb Soln NEB SCH ×2 (08:10→19:53)
[2019-05-06] MEDS: Potassium Chloride 10% 20 MEQ/15 ML Soln 15 ML UD Cup PO SCH ×3 (08:11→19:54)
[2019-05-06] MEDS: Cyanocobalamin (Vitamin B12) 1,000 MCG Tab PO SCH (08:12)
[2019-05-06] MEDS: Cholecalciferol (Vitamin D3) 25 MCG Tab PO SCH (08:12)
[2019-05-06] MEDS: Acetaminophen 325 MG Tab PO PRN ×2 (12:07→19:57)
[2019-05-06] MEDS: buPROPion 100 MG Tab PO SCH (19:54)
[2019-05-06] MEDS: LEVOTHYROXINE SODIUM 137 MCG PO SCH (19:54)
[2019-05-06] MEDS: Simvastatin 10 MG Tab PO SCH (19:55)
[2019-05-07] MEDS: Albuterol/Ipratropium 3.0-0.5 MG/3 ML Neb Soln NEB SCH ×2 (07:28→19:07)
[2019-05-07] MEDS: Potassium Chloride 10% 20 MEQ/15 ML Soln 15 ML UD Cup PO SCH ×3 (07:29→19:09)
[2019-05-07] MEDS: Metoclopramide 10 MG Tab PO SCH ×2 (07:29→17:09)
[2019-05-07] MEDS: Citalopram 20 MG Tab PO SCH (07:29)
[2019-05-07] MEDS: Niacin 500 MG Tab PO SCH ×2 (07:30→17:10)
[2019-05-07] MEDS: Furosemide 20 MG Tab PO SCH (07:30)
[2019-05-07] MEDS: Ibuprofen 600 MG Tab PO SCH ×2 (07:30→17:10)
[2019-05-07] MEDS: Fludrocortisone 0.1 MG Tab PO SCH ×2 (07:30→19:08)
[2019-05-07] MEDS: Cyanocobalamin (Vitamin B12) 1,000 MCG Tab PO SCH (07:31)
[2019-05-07] MEDS: Cholecalciferol (Vitamin D3) 25 MCG Tab PO SCH (07:31)
[2019-05-07] MEDS: buPROPion 100 MG Tab PO SCH (19:08)
[2019-05-07] MEDS: Simvastatin 10 MG Tab PO SCH (19:08)
[2019-05-07] MEDS: LEVOTHYROXINE SODIUM 137 MCG PO SCH (19:08)
[2019-05-08] MEDS: Metoclopramide 10 MG Tab PO SCH ×2 (07:55→17:35)
[2019-05-08] MEDS: Citalopram 20 MG Tab PO SCH (07:56)
[2019-05-08] MEDS: Fludrocortisone 0.1 MG Tab PO SCH ×2 (07:57→19:07)
[2019-05-08] MEDS: Furosemide 20 MG Tab PO SCH (07:58)
[2019-05-08] MEDS: Ibuprofen 600 MG Tab PO SCH ×2 (07:58→17:35)
[2019-05-08] MEDS: Niacin 500 MG Tab PO SCH ×2 (08:00→17:36)
[2019-05-08] MEDS: Potassium Chloride 10% 20 MEQ/15 ML Soln 15 ML UD Cup PO SCH ×3 (08:00→19:08)
[2019-05-08] MEDS: Albuterol/Ipratropium 3.0-0.5 MG/3 ML Neb Soln NEB SCH ×2 (08:00→19:07)
[2019-05-08] MEDS: Cholecalciferol (Vitamin D3) 25 MCG Tab PO SCH (08:02)
[2019-05-08] MEDS: Cyanocobalamin (Vitamin B12) 1,000 MCG Tab PO SCH (08:02)
[2019-05-08] MEDS: buPROPion 100 MG Tab PO SCH (19:08)
[2019-05-08] MEDS: Simvastatin 10 MG Tab PO SCH (19:08)
[2019-05-08] MEDS: LEVOTHYROXINE SODIUM 137 MCG PO SCH (19:08)
[2019-05-09] MEDS: Acetaminophen 325 MG Tab PO PRN (04:11)
[2019-05-09] MEDS: Ibuprofen 600 MG Tab PO SCH ×2 (07:28→17:27)
[2019-05-09] MEDS: Furosemide 20 MG Tab PO SCH (07:29)
[2019-05-09] MEDS: Fludrocortisone 0.1 MG Tab PO SCH ×2 (07:29→19:16)
[2019-05-09] MEDS: Metoclopramide 10 MG Tab PO SCH ×2 (07:30→17:27)
[2019-05-09] MEDS: Citalopram 20 MG Tab PO SCH (07:30)
[2019-05-09] MEDS: Niacin 500 MG Tab PO SCH ×2 (07:31→17:29)
[2019-05-09] MEDS: Potassium Chloride 10% 20 MEQ/15 ML Soln 15 ML UD Cup PO SCH ×3 (07:32→19:17)
[2019-05-09] MEDS: Cholecalciferol (Vitamin D3) 25 MCG Tab PO SCH (07:33)
[2019-05-09] MEDS: Albuterol/Ipratropium 3.0-0.5 MG/3 ML Neb Soln NEB SCH ×2 (07:33→19:13)
[2019-05-09] MEDS: Cyanocobalamin (Vitamin B12) 1,000 MCG Tab PO SCH (07:33)
[2019-05-09] MEDS: LEVOTHYROXINE SODIUM 137 MCG PO SCH (19:16)
[2019-05-09] MEDS: buPROPion 100 MG Tab PO SCH (19:16)
[2019-05-09] MEDS: Simvastatin 10 MG Tab PO SCH (19:17)
[2019-05-10] MEDS: Albuterol/Ipratropium 3.0-0.5 MG/3 ML Neb Soln NEB SCH ×2 (07:14→19:11)
[2019-05-10] MEDS: Potassium Chloride 10% 20 MEQ/15 ML Soln 15 ML UD Cup PO SCH ×3 (07:15→19:11)
[2019-05-10] MEDS: Cyanocobalamin (Vitamin B12) 1,000 MCG Tab PO SCH (07:16)
[2019-05-10] MEDS: Furosemide 20 MG Tab PO SCH (07:16)
[2019-05-10] MEDS: Fludrocortisone 0.1 MG Tab PO SCH ×2 (07:16→19:10)
[2019-05-10] MEDS: Cholecalciferol (Vitamin D3) 25 MCG Tab PO SCH (07:16)
[2019-05-10] MEDS: Citalopram 20 MG Tab PO SCH (07:16)
[2019-05-10] MEDS: Metoclopramide 10 MG Tab PO SCH ×2 (07:16→17:24)
[2019-05-10] MEDS: Ibuprofen 600 MG Tab PO SCH ×2 (07:17→17:24)
[2019-05-10] MEDS: Niacin 500 MG Tab PO SCH ×2 (07:17→17:25)
[2019-05-10] MEDS: buPROPion 100 MG Tab PO SCH (19:10)
[2019-05-10] MEDS: Simvastatin 10 MG Tab PO SCH (19:10)
[2019-05-10] MEDS: LEVOTHYROXINE SODIUM 137 MCG PO SCH (19:10)
[2019-05-11] MEDS: Metoclopramide 10 MG Tab PO SCH ×2 (08:11→17:09)
[2019-05-11] MEDS: Furosemide 20 MG Tab PO SCH (08:12)
[2019-05-11] MEDS: Ibuprofen 600 MG Tab PO SCH ×2 (08:12→17:09)
[2019-05-11] MEDS: Citalopram 20 MG Tab PO SCH (08:12)
[2019-05-11] MEDS: Fludrocortisone 0.1 MG Tab PO SCH ×2 (08:12→19:25)
[2019-05-11] MEDS: Cholecalciferol (Vitamin D3) 25 MCG Tab PO SCH (08:14)
[2019-05-11] MEDS: Cyanocobalamin (Vitamin B12) 1,000 MCG Tab PO SCH (08:14)
[2019-05-11] MEDS: Niacin 500 MG Tab PO SCH ×2 (08:14→17:09)
[2019-05-11] MEDS: Potassium Chloride 10% 20 MEQ/15 ML Soln 15 ML UD Cup PO SCH ×3 (08:15→19:25)
[2019-05-11] MEDS: Albuterol/Ipratropium 3.0-0.5 MG/3 ML Neb Soln NEB SCH ×2 (08:15→19:25)
[2019-05-11] MEDS: LEVOTHYROXINE SODIUM 137 MCG PO SCH (19:25)
[2019-05-11] MEDS: buPROPion 100 MG Tab PO SCH (19:25)
[2019-05-11] MEDS: Simvastatin 10 MG Tab PO SCH (19:26)
[2019-05-11] MEDS: Acetaminophen 325 MG Tab PO PRN (19:27)
[2019-05-12] MEDS: Ibuprofen 600 MG Tab PO SCH ×2 (07:59→17:51)
[2019-05-12] MEDS: Furosemide 20 MG Tab PO SCH (08:00)
[2019-05-12] MEDS: Fludrocortisone 0.1 MG Tab PO SCH ×2 (08:00→19:30)
[2019-05-12] MEDS: Citalopram 20 MG Tab PO SCH (08:00)
[2019-05-12] MEDS: Metoclopramide 10 MG Tab PO SCH ×2 (08:00→17:51)
[2019-05-12] MEDS: Cyanocobalamin (Vitamin B12) 1,000 MCG Tab PO SCH (08:01)
[2019-05-12] MEDS: Cholecalciferol (Vitamin D3) 25 MCG Tab PO SCH (08:01)
[2019-05-12] MEDS: Niacin 500 MG Tab PO SCH ×2 (08:01→17:51)
[2019-05-12] MEDS: Potassium Chloride 10% 20 MEQ/15 ML Soln 15 ML UD Cup PO SCH ×3 (08:02→19:31)
[2019-05-12] MEDS: Albuterol/Ipratropium 3.0-0.5 MG/3 ML Neb Soln NEB SCH ×2 (08:02→19:29)
[2019-05-12] MEDS: LEVOTHYROXINE SODIUM 137 MCG PO SCH (19:30)
[2019-05-12] MEDS: Acetaminophen 325 MG Tab PO PRN (19:31)
[2019-05-12] MEDS: buPROPion 100 MG Tab PO SCH (19:31)
[2019-05-12] MEDS: Simvastatin 10 MG Tab PO SCH (19:31)
[2019-05-13] MEDS: Potassium Chloride 10% 20 MEQ/15 ML Soln 15 ML UD Cup PO SCH ×3 (08:08→19:11)
[2019-05-13] MEDS: Ibuprofen 600 MG Tab PO SCH ×2 (08:08→17:52)
[2019-05-13] MEDS: Citalopram 20 MG Tab PO SCH (08:09)
[2019-05-13] MEDS: Furosemide 20 MG Tab PO SCH (08:09)
[2019-05-13] MEDS: Fludrocortisone 0.1 MG Tab PO SCH ×2 (08:09→19:09)
[2019-05-13] MEDS: Metoclopramide 10 MG Tab PO SCH ×2 (08:09→17:52)
[2019-05-13] MEDS: Albuterol/Ipratropium 3.0-0.5 MG/3 ML Neb Soln NEB SCH ×2 (08:10→19:09)
[2019-05-13] MEDS: Niacin 500 MG Tab PO SCH ×2 (08:10→17:52)
[2019-05-13] MEDS: Cyanocobalamin (Vitamin B12) 1,000 MCG Tab PO SCH (08:10)
[2019-05-13] MEDS: Cholecalciferol (Vitamin D3) 25 MCG Tab PO SCH (08:11)
[2019-05-13] MEDS: LEVOTHYROXINE SODIUM 137 MCG PO SCH (19:10)
[2019-05-13] MEDS: buPROPion 100 MG Tab PO SCH (19:10)
[2019-05-13] MEDS: Simvastatin 10 MG Tab PO SCH (19:11)
[2019-05-14] MEDS: Acetaminophen 325 MG Tab PO PRN ×2 (01:11→19:26)
[2019-05-14] MEDS: Metoclopramide 10 MG Tab PO SCH ×2 (07:43→17:18)
[2019-05-14] MEDS: Citalopram 20 MG Tab PO SCH (07:43)
[2019-05-14] MEDS: Ibuprofen 600 MG Tab PO SCH ×2 (07:44→17:18)
[2019-05-14] MEDS: Fludrocortisone 0.1 MG Tab PO SCH ×2 (07:44→19:25)
[2019-05-14] MEDS: Furosemide 20 MG Tab PO SCH (07:44)
[2019-05-14] MEDS: Albuterol/Ipratropium 3.0-0.5 MG/3 ML Neb Soln NEB SCH ×2 (07:44→19:23)
[2019-05-14] MEDS: Niacin 500 MG Tab PO SCH ×2 (07:45→17:19)
[2019-05-14] MEDS: Cyanocobalamin (Vitamin B12) 1,000 MCG Tab PO SCH (07:46)
[2019-05-14] MEDS: Potassium Chloride 10% 20 MEQ/15 ML Soln 15 ML UD Cup PO SCH ×3 (07:46→19:25)
[2019-05-14] MEDS: Cholecalciferol (Vitamin D3) 25 MCG Tab PO SCH (07:47)
[2019-05-14] MEDS: Simvastatin 10 MG Tab PO SCH (19:23)
[2019-05-14] MEDS: LEVOTHYROXINE SODIUM 137 MCG PO SCH (19:25)
[2019-05-14] MEDS: buPROPion 100 MG Tab PO SCH (19:25)
[2019-05-15] MEDS: Acetaminophen 325 MG Tab PO PRN (00:22)
[2019-05-15] MEDS: Furosemide 20 MG Tab PO SCH (08:08)
[2019-05-15] MEDS: Fludrocortisone 0.1 MG Tab PO SCH ×2 (08:08→19:26)
[2019-05-15] MEDS: Citalopram 20 MG Tab PO SCH (08:08)
[2019-05-15] MEDS: Metoclopramide 10 MG Tab PO SCH ×2 (08:08→17:49)
[2019-05-15] MEDS: Ibuprofen 600 MG Tab PO SCH ×2 (08:08→17:49)
[2019-05-15] MEDS: Cyanocobalamin (Vitamin B12) 1,000 MCG Tab PO SCH (08:09)
[2019-05-15] MEDS: Niacin 500 MG Tab PO SCH ×2 (08:09→17:49)
[2019-05-15] MEDS: Cholecalciferol (Vitamin D3) 25 MCG Tab PO SCH (08:09)
[2019-05-15] MEDS: Albuterol/Ipratropium 3.0-0.5 MG/3 ML Neb Soln NEB SCH ×2 (08:10→19:28)
[2019-05-15] MEDS: Potassium Chloride 10% 20 MEQ/15 ML Soln 15 ML UD Cup PO SCH ×3 (08:10→19:26)
[2019-05-15] MEDS: LEVOTHYROXINE SODIUM 137 MCG PO SCH (19:26)
[2019-05-15] MEDS: buPROPion 100 MG Tab PO SCH (19:26)
[2019-05-15] MEDS: Simvastatin 10 MG Tab PO SCH (19:26)
[2019-05-16] MEDS: Metoclopramide 10 MG Tab PO SCH ×2 (07:50→18:00)
[2019-05-16] MEDS: Potassium Chloride 10% 20 MEQ/15 ML Soln 15 ML UD Cup PO SCH ×3 (07:50→19:18)
[2019-05-16] MEDS: Fludrocortisone 0.1 MG Tab PO SCH ×2 (07:51→19:18)
[2019-05-16] MEDS: Furosemide 20 MG Tab PO SCH (07:51)
[2019-05-16] MEDS: Citalopram 20 MG Tab PO SCH (07:51)
[2019-05-16] MEDS: Ibuprofen 600 MG Tab PO SCH ×2 (07:51→18:00)
[2019-05-16] MEDS: Cyanocobalamin (Vitamin B12) 1,000 MCG Tab PO SCH (07:52)
[2019-05-16] MEDS: Albuterol/Ipratropium 3.0-0.5 MG/3 ML Neb Soln NEB SCH ×2 (07:52→19:18)
[2019-05-16] MEDS: Cholecalciferol (Vitamin D3) 25 MCG Tab PO SCH (07:53)
[2019-05-16] MEDS: Niacin 500 MG Tab PO SCH ×2 (07:53→18:00)
[2019-05-16] MEDS: buPROPion 100 MG Tab PO SCH (19:18)
[2019-05-16] MEDS: LEVOTHYROXINE SODIUM 137 MCG PO SCH (19:18)
[2019-05-16] MEDS: Simvastatin 10 MG Tab PO SCH (19:18)
[2019-05-17] MEDS: Acetaminophen 325 MG Tab PO PRN ×2 (04:22→19:29)
[2019-05-17] MEDS: Citalopram 20 MG Tab PO SCH (08:07)
[2019-05-17] MEDS: Fludrocortisone 0.1 MG Tab PO SCH ×2 (08:07→19:26)
[2019-05-17] MEDS: Metoclopramide 10 MG Tab PO SCH ×2 (08:07→17:46)
[2019-05-17] MEDS: Niacin 500 MG Tab PO SCH ×2 (08:08→17:47)
[2019-05-17] MEDS: Furosemide 20 MG Tab PO SCH (08:08)
[2019-05-17] MEDS: Ibuprofen 600 MG Tab PO SCH ×2 (08:08→17:46)
[2019-05-17] MEDS: Albuterol/Ipratropium 3.0-0.5 MG/3 ML Neb Soln NEB SCH ×2 (08:09→19:26)
[2019-05-17] MEDS: Cholecalciferol (Vitamin D3) 25 MCG Tab PO SCH (08:09)
[2019-05-17] MEDS: Cyanocobalamin (Vitamin B12) 1,000 MCG Tab PO SCH (08:09)
[2019-05-17] MEDS: Potassium Chloride 10% 20 MEQ/15 ML Soln 15 ML UD Cup PO SCH ×3 (08:10→19:29)
[2019-05-17] MEDS: buPROPion 100 MG Tab PO SCH (19:26)
[2019-05-17] MEDS: LEVOTHYROXINE SODIUM 137 MCG PO SCH (19:26)
[2019-05-17] MEDS: Simvastatin 10 MG Tab PO SCH (19:26)
[2019-05-18] MEDS: Metoclopramide 10 MG Tab PO SCH ×2 (07:45→17:50)
[2019-05-18] MEDS: Fludrocortisone 0.1 MG Tab PO SCH ×2 (07:45→19:21)
[2019-05-18] MEDS: Furosemide 20 MG Tab PO SCH (07:45)
[2019-05-18] MEDS: Citalopram 20 MG Tab PO SCH (07:45)
[2019-05-18] MEDS: Ibuprofen 600 MG Tab PO SCH ×2 (07:46→17:51)
[2019-05-18] MEDS: Niacin 500 MG Tab PO SCH ×2 (07:46→17:50)
[2019-05-18] MEDS: Cholecalciferol (Vitamin D3) 25 MCG Tab PO SCH (07:46)
[2019-05-18] MEDS: Cyanocobalamin (Vitamin B12) 1,000 MCG Tab PO SCH (07:46)
[2019-05-18] MEDS: Albuterol/Ipratropium 3.0-0.5 MG/3 ML Neb Soln NEB SCH ×2 (07:47→19:21)
[2019-05-18] MEDS: Potassium Chloride 10% 20 MEQ/15 ML Soln 15 ML UD Cup PO SCH ×3 (07:47→19:22)
[2019-05-18 10:03] VITALS: BP 110/58
[2019-05-18] MEDS: Simvastatin 10 MG Tab PO SCH (19:22)
[2019-05-18] MEDS: LEVOTHYROXINE SODIUM 137 MCG PO SCH (19:22)
[2019-05-18] MEDS: buPROPion 100 MG Tab PO SCH (19:22)
[2019-05-18] MEDS: Acetaminophen 325 MG Tab PO PRN (20:03)
[2019-05-19] MEDS: Metoclopramide 10 MG Tab PO SCH ×2 (07:34→17:14)
[2019-05-19] MEDS: Citalopram 20 MG Tab PO SCH (07:34)
[2019-05-19] MEDS: Albuterol/Ipratropium 3.0-0.5 MG/3 ML Neb Soln NEB SCH ×2 (07:34→19:19)
[2019-05-19] MEDS: Fludrocortisone 0.1 MG Tab PO SCH ×2 (07:34→19:20)
[2019-05-19] MEDS: Ibuprofen 600 MG Tab PO SCH ×2 (07:35→17:14)
[2019-05-19] MEDS: Furosemide 20 MG Tab PO SCH (07:35)
[2019-05-19] MEDS: Potassium Chloride 10% 20 MEQ/15 ML Soln 15 ML UD Cup PO SCH ×3 (07:36→19:21)
[2019-05-19] MEDS: Niacin 500 MG Tab PO SCH ×2 (07:36→17:17)
[2019-05-19] MEDS: Cyanocobalamin (Vitamin B12) 1,000 MCG Tab PO SCH (07:37)
[2019-05-19] MEDS: Cholecalciferol (Vitamin D3) 25 MCG Tab PO SCH (07:37)
[2019-05-19] MEDS: Simvastatin 10 MG Tab PO SCH (19:20)
[2019-05-19] MEDS: LEVOTHYROXINE SODIUM 137 MCG PO SCH (19:20)
[2019-05-19] MEDS: buPROPion 100 MG Tab PO SCH (19:20)
[2019-05-19] MEDS: Acetaminophen 325 MG Tab PO PRN (19:33)
[2019-05-20] MEDS: Furosemide 20 MG Tab PO SCH (08:06)
[2019-05-20] MEDS: Fludrocortisone 0.1 MG Tab PO SCH ×2 (08:06→19:37)
[2019-05-20] MEDS: Acetaminophen 325 MG Tab PO PRN (08:06)
[2019-05-20] MEDS: Ibuprofen 600 MG Tab PO SCH ×2 (08:07→17:21)
[2019-05-20] MEDS: Metoclopramide 10 MG Tab PO SCH ×2 (08:07→17:21)
[2019-05-20] MEDS: Citalopram 20 MG Tab PO SCH (08:07)
[2019-05-20] MEDS: Albuterol/Ipratropium 3.0-0.5 MG/3 ML Neb Soln NEB SCH ×2 (08:09→19:37)
[2019-05-20] MEDS: Niacin 500 MG Tab PO SCH ×2 (08:09→17:22)
[2019-05-20] MEDS: Potassium Chloride 10% 20 MEQ/15 ML Soln 15 ML UD Cup PO SCH ×3 (08:09→19:38)
[2019-05-20] MEDS: Cyanocobalamin (Vitamin B12) 1,000 MCG Tab PO SCH (08:10)
[2019-05-20] MEDS: Cholecalciferol (Vitamin D3) 25 MCG Tab PO SCH (08:11)
[2019-05-20] MEDS: LEVOTHYROXINE SODIUM 137 MCG PO SCH (19:38)
[2019-05-20] MEDS: Simvastatin 10 MG Tab PO SCH (19:38)
[2019-05-20] MEDS: buPROPion 100 MG Tab PO SCH (19:38)
[2019-05-21] MEDS: Metoclopramide 10 MG Tab PO SCH (07:38)
[2019-05-21] MEDS: Citalopram 20 MG Tab PO SCH (07:38)
[2019-05-21] MEDS: Furosemide 20 MG Tab PO SCH (07:39)
[2019-05-21] MEDS: Ibuprofen 600 MG Tab PO SCH ×2 (07:39→17:31)
[2019-05-21] MEDS: Fludrocortisone 0.1 MG Tab PO SCH ×2 (07:39→19:33)
[2019-05-21] MEDS: Albuterol/Ipratropium 3.0-0.5 MG/3 ML Neb Soln NEB SCH ×2 (07:39→19:33)
[2019-05-21] MEDS: Niacin 500 MG Tab PO SCH ×2 (07:40→17:32)
[2019-05-21] MEDS: Potassium Chloride 10% 20 MEQ/15 ML Soln 15 ML UD Cup PO SCH ×3 (07:41→19:34)
[2019-05-21] MEDS: Cholecalciferol (Vitamin D3) 25 MCG Tab PO SCH (07:42)
[2019-05-21] MEDS: Cyanocobalamin (Vitamin B12) 1,000 MCG Tab PO SCH (07:42)
[2019-05-21] MEDS: Acetaminophen 325 MG Tab PO PRN ×2 (07:43→19:48)
[2019-05-21] MEDS: Simvastatin 10 MG Tab PO SCH (19:34)
[2019-05-21] MEDS: LEVOTHYROXINE SODIUM 137 MCG PO SCH (19:34)
[2019-05-21] MEDS: buPROPion 100 MG Tab PO SCH (19:34)
[2019-05-22] MEDS: Citalopram 20 MG Tab PO SCH (08:09)
[2019-05-22] MEDS: Albuterol/Ipratropium 3.0-0.5 MG/3 ML Neb Soln NEB SCH ×2 (08:09→19:54)
[2019-05-22] MEDS: Fludrocortisone 0.1 MG Tab PO SCH ×2 (08:09→19:54)
[2019-05-22] MEDS: Ibuprofen 600 MG Tab PO SCH ×2 (08:10→17:15)
[2019-05-22] MEDS: Furosemide 20 MG Tab PO SCH (08:10)
[2019-05-22] MEDS: Niacin 500 MG Tab PO SCH ×2 (08:11→17:16)
[2019-05-22] MEDS: Acetaminophen 325 MG Tab PO PRN (08:11)
[2019-05-22] MEDS: Potassium Chloride 10% 20 MEQ/15 ML Soln 15 ML UD Cup PO SCH ×3 (08:12→19:54)
[2019-05-22] MEDS: Cyanocobalamin (Vitamin B12) 1,000 MCG Tab PO SCH (08:13)
[2019-05-22] MEDS: Cholecalciferol (Vitamin D3) 25 MCG Tab PO SCH (08:13)
[2019-05-22] MEDS: LEVOTHYROXINE SODIUM 137 MCG PO SCH (19:54)
[2019-05-22] MEDS: Simvastatin 10 MG Tab PO SCH (19:55)
[2019-05-22] MEDS: buPROPion 100 MG Tab PO SCH (19:55)
[2019-05-23] MEDS: Furosemide 20 MG Tab PO SCH (08:07)
[2019-05-23] MEDS: Fludrocortisone 0.1 MG Tab PO SCH ×2 (08:07→19:58)
[2019-05-23] MEDS: Ibuprofen 600 MG Tab PO SCH ×2 (08:08→18:24)
[2019-05-23] MEDS: Citalopram 20 MG Tab PO SCH (08:09)
[2019-05-23] MEDS: Albuterol/Ipratropium 3.0-0.5 MG/3 ML Neb Soln NEB SCH ×2 (08:09→19:57)
[2019-05-23] MEDS: Niacin 500 MG Tab PO SCH ×2 (08:10→18:24)
[2019-05-23] MEDS: Cyanocobalamin (Vitamin B12) 1,000 MCG Tab PO SCH (08:10)
[2019-05-23] MEDS: Potassium Chloride 10% 20 MEQ/15 ML Soln 15 ML UD Cup PO SCH ×3 (08:11→19:58)
[2019-05-23] MEDS: Cholecalciferol (Vitamin D3) 25 MCG Tab PO SCH (09:06)
[2019-05-23] MEDS: LEVOTHYROXINE SODIUM 137 MCG PO SCH (19:58)
[2019-05-23] MEDS: buPROPion 100 MG Tab PO SCH (19:59)
[2019-05-23] MEDS: Simvastatin 10 MG Tab PO SCH (19:59)
[2019-05-23] MEDS: Acetaminophen 325 MG Tab PO PRN (20:00)
[2019-05-24] MEDS: Albuterol/Ipratropium 3.0-0.5 MG/3 ML Neb Soln NEB SCH (07:13)
[2019-05-24] MEDS: Furosemide 20 MG Tab PO SCH (08:26)
[2019-05-24] MEDS: Citalopram 20 MG Tab PO SCH (08:26)
[2019-05-24] MEDS: Fludrocortisone 0.1 MG Tab PO SCH (08:26)
[2019-05-24] MEDS: Niacin 500 MG Tab PO SCH (08:27)
[2019-05-24] MEDS: Potassium Chloride 10% 20 MEQ/15 ML Soln 15 ML UD Cup PO SCH (08:28)
[2019-05-24] MEDS: Cyanocobalamin (Vitamin B12) 1,000 MCG Tab PO SCH (08:29)
[2019-05-24] MEDS: Cholecalciferol (Vitamin D3) 25 MCG Tab PO SCH (08:30)
[2019-05-24] MEDS: Ibuprofen 600 MG Tab PO SCH (08:31)
--- NOTE | 2019-05-24 09:28 | PCM.DCSUM1 ---
Discharge Summary - Hospital Course HPI Initial Comments: Note: This is not an official transfer summary, however this is a with simple yearly account transfer of the same resident to new account secondary to [employer] issues. Diagnosis: Stroke: No Modified [place] Scale: No Symptoms at All Modified [place] Scale Score: 0 - Discharge Data Discharge Date: 05/24/19 Discharge Disposition: DC/Tfer W/I Hosp To [facility] Condition: Good - Discharge Diagnosis/Problem(s) (1) Steinert myotonic dystrophy syndrome SNOMED Code(s): 924641921 ICD Code: G71.11 - MYOTONIC MUSCULAR DYSTROPHY Status: Chronic Priority: Medium Current Visit: Yes Problem Details: Stable by history and today's exam. Physical therapy in effect. Blood work and yearly labs conducted today. Continue current medical therapy. (2) CHF, Congestive heart failure SNOMED Code(s): 68169993 ICD Code: I50.9 - HEART FAILURE, UNSPECIFIED Status: Chronic Priority: Medium Current Visit: Yes Problem Details: Despite newly diagnosed lateral wall cardiac ischemia by today's EKG difficult to assess secondary to her bifascicular bundle-branch block. No chest pain or anginal type symptoms. Stable CHF by clinical exam and history with no evidence of significant CHF by today's x-rays. Stable dependent edema since 12/10/17. Note 2.5 kg weight loss since last grounds 2 months ago. Her weight continues to be variable secondary to dietary noncompliance, however no direct evidence of significant weight gain or CHF as above. Note previous discontinuation of high protein Glucerna supplements as snacks. Note, however, dietary noncompliance is still an issue. Dietary consultation in effect. Activity level is overall low. Continue to observe closely. No recent anginal complaints or current clinical evidence of CHF as above. Note previous history of PVCs, complete right bundle branch block /bifascicular bundle-branch block, first-degree AV block, severe dyslipidemia hypokalemia, hypophosphatemia, and hyponatremia. Continue to observe for now with no further change in medical therapy. (3) COPD (chronic obstructive pulmonary disease) SNOMED Code(s): 72245751 ICD Code: J44.9 - CHRONIC OBSTRUCTIVE PULMONARY DISEASE, UNSPECIFIED Status : Chronic Priority: Medium Current Visit: Yes Problem Details: O2 dependent COPD stable by history with no bronchitic symptoms at this time. Continue current medical therapy. Patient does have a previous history of distant postoperative respiratory distress, although no complications after previous dental surgery. Qualifiers: COPD type: unspecified COPD Qualified Code(s): J44.9 - Chronic obstructive pulmonary disease, unspecified (4) Hyperglycemia SNOMED Code(s): 69979370 ICD Code: R73.9 - HYPERGLYCEMIA, UNSPECIFIED Status: Chronic Priority: Medium Current Visit: Yes Onset Date: 06/29/15 Problem Details: Note persistent dietary noncompliance with variable weights as above. Dietary consultation is in effect as above. Blood work reviewed today as above with normal Glycosylated hemoglobin. (5) Hyperlipidemia SNOMED Code(s): 17807690 ICD Code: E78.5 - HYPERLIPIDEMIA, UNSPECIFIED Status: Chronic Priority: Medium Current Visit: Yes Problem Details: Lipid Panel shows mild persistent hypertriglyceridemia. Previous history of severe dyslipidemia with aggressive medical therapy at this time. Dietary compliance once again strongly encouraged. Previous lipid panel on 04/29/18 relatively stable. No change in medical therapy for now with previous history of CPK elevation. (6) Hypothyroidism SNOMED Code(s): 88810414 ICD Code: E03.9 - HYPOTHYROIDISM, UNSPECIFIED Status: Chronic Priority: Medium Current Visit: Yes Problem Details: TSH normal today and on 04/29/18. No other thyroid type symptoms. (7) Mixed anxiety and depressive disorder SNOMED Code(s): 882247388 ICD Code: F41.8 - OTHER SPECIFIED ANXIETY DISORDERS Status: Chronic Priority: Medium Current Visit: Yes Problem Details: Stable by history. Patient is still relatively active with physical therapy, social activities, etc.. Continue to observe closely by nursing staff with no significant depression at this time with patient often alone in her room. (8) Osteoarthritis SNOMED Code(s): 104881843 ICD Code: M19.90 - UNSPECIFIED OSTEOARTHRITIS, UNSPECIFIED SITE Status: Chronic Priority: Medium Current Visit: Yes Problem Details: No complaints today with previous intermittent mild generalized arthralgias, however nonproblematic at this time with the patient nonsymptomatic despite discontinuation of Ultram. PT in effect as above. Note status post bilateral ankle ORIF secondary to fractures. Recent recurrent falls in February have improved with no recent significant falls or injuries. (9) UTI (urinary tract infection) SNOMED Code(s): 81824743 ICD Code: N39.0 - URINARY TRACT INFECTION, SITE NOT SPECIFIED Status: Chronic Priority: Medium Current Visit: Yes Problem Details: Long History of recurrent UTIs. No current UTI symptoms despite previous discontinuation of Keflex therapy for previous recurrent UTIs. Note subsequent recurrent C. difficile infection, which has since resolved by clinical exam. Continue to observe for now with no reinitiation of antibiotic therapy. Qualifiers: Hematuria presence: without hematuria (10) C. difficile colitis SNOMED Code(s): 762270096 ICD Code: A04.72 - ENTEROCOLITIS D/T CLOSTRIDIUM DIFFICILE, NOT SPCF RECUR Status: Chronic Priority: Medium Current Visit: Yes Onset Date: Problem Details: No recent diarrhea, etc. or evidence of recurrence. Central laboratories previously refused repeat stool C. difficile analysis since the patient no longer has diarrhea and that this evaluation may remain positive for several months. This issue was previously brought up in medical staff for further review and discussion with no further follow-up at this time. In the meantime strict disinfection of patient's room, clothing, etc. has been conducted. Suspect that the patient may be a carrier. Continue to observe closely, however. (11) Gastroesophageal reflux disease SNOMED Code(s): 701477782 ICD Code: K21.9 - GASTRO-ESOPHAGEAL REFLUX DISEASE WITHOUT ESOPHAGITIS Status: Acute Priority: Medium Current Visit: Yes Problem Details: Stable by history with no abdominal complaints and attempt to taper patient off of Prilosec. (12) Hypoalbuminemia SNOMED Code(s): 857134932 ICD Code: E88.09 - OTH DISORDERS OF PLASMA-PROTEIN METABOLISM, NEC Status: Chronic Priority: Medium Current Visit: Yes Problem Details: Glucerna high -protein has been discontinued per recommendations from dietitian secondary to persistent weight gain. Continue high-protein diet as above. Observe for now. - Patient Summary/Data Consults: Consultations 11/25/17 09:03 Consult to Case Management [CONS] Routine Consult to Forex Trader [CONS] Routine OT Evaluation and Treatment [CONS] Routine PT Evaluation and Treatment [CONS] Routine 02/23/18 10:43 Consult to Dietary [Consult to Forex Trader] [CONS] Routine 03/23/19 13:32 Consult to Physical Therapy [PT Evaluation and Treatment] [CONS] Routine 08/31/18 11:13 PT Evaluation and Treatment [CONS] Routine - Discharge Plan Prescriptions/Med Rec: Gentian Annita 1 ml TOP DAILY PRN #1 bottle PRN Reason: Rash Lactobacillus Combination No.9 [Adult 50 + Probiotic] 2 each PO BID #56 capsule metroNIDAZOLE [Flagyl] 500 mg PO Q8H #42 tab Home Medications: Home Meds buPROPion [Wellbutrin] 150 mg PO BEDTIME #45 tablet 11/05/13 [Rx] Acetaminophen 650 mg PO Q6HR PRN 03/16/16 [History] Albuterol/Ipratropium [DuoNeb 3.0-0.5 MG/3 ML] 3 ml NEB BIDRT 03/16/16 [History] Chlorhexidine Gluconate [Peridex 0.12% Rinse] 15 ml MM BID@03/16/16 [ History] Cholecalciferol (Vitamin D3) [Vitamin D3] 1,000 unit PO QAM 03/16/16 [History] Citalopram Hydrobromide [Celexa] 20 mg PO QAM 03/16/16 [History] Cyanocobalamin (Vitamin B-12) [B-12] 1,000 mcg PO QAM 03/16/16 [History] Fludrocortisone [Florinef] 0.1 mg PO BEDTIME 03/16/16 [History] Fludrocortisone [Florinef] 0.2 mg PO QAM 03/16/16 [History] Metoclopramide HCl [Reglan] 10 mg PO BIDAC 03/16/16 [History] Niacin 500 mg PO BID 03/16/16 [History] Omeprazole 20 mg PO DAILY 03/16/16 [History] traMADol [Ultram] 50 mg PO Q6H PRN 03/25/16 [History] Albuterol/Ipratropium [DuoNeb 3.0-0.5 MG/3 ML] 3 ml NEB Q4HRRT PRN 11/25/17 [ History] Cephalexin [Keflex] 500 mg PO BID 11/25/17 [History] Clotrimazole [Lotrimin AF 1% Crm] 1 applic TOP BID PRN 11/25/17 [History] Ibuprofen 600 mg PO Q6H PRN 11/25/17 [History] Ibuprofen [IJD: Ibuprofen] 600 mg PO BID 11/25/17 [History] Levothyroxine [Levothroid] 137 mcg PO BEDTIME 11/25/17 [History] Potassium Chloride 40 meq PO TID@08,14,20 11/25/17 [History] Simvastatin [Zocor] 10 mg PO BEDTIME 11/25/17 [History] diphenhydrAMINE [Benadryl] 25 mg PO Q4HR PRN 11/25/17 [History] metroNIDAZOLE [Flagyl] 500 mg PO Q8H #42 tab 02/12/18 [Rx] Lactobacillus Combination No.9 [Adult 50 + Probiotic] 2 each PO BID #56 capsule 02/16/18 [Rx] Gentian Annita 1 ml TOP DAILY PRN #1 bottle 07/23/18 [Rx] Referrals: Fitz Fontanez MD [Primary Care Provider] - - Discharge Summary/Plan Comment DC Time >30 min.: Yes (Coordination of care ) - Patient Data Vitals - Most Recent: Last Vital Signs Temp 36.0 C 05/18/19 08:00 Pulse 64 05/18/19 08:00 Resp 20 05/18/19 08:00 BP 110/58 L 05/18/19 08:00 Pulse Ox 89 L 05/18/19 08:00 Weight - Most Recent: 217.724 kg I&O - Last 24 hours: Intake & Output 05/23/19 05/24/19 05/24/19 22:59 06:59 14:59 Intake Total 150 240 Balance 150 240 Med Orders - Current: Current Medications Acetaminophen (Tylenol) 650 mg PO Q4H PRN PRN Reason: Pain Last Admin: 05/23/19 20:00 Dose: 650 mg Albuterol/Ipratropium (Duoneb 3.0-0.5 Mg/3 Ml) 3 ml NEB BIDRT PENDING SALE TO [facility] Last Admin: 05/24/19 07:13 Dose: 3 ml Albuterol/Ipratropium (Duoneb 3.0-0.5 Mg/3 Ml) 3 ml NEB Q4HRRT PRN PRN Reason: Dyspnea Last Admin: 12/29/18 00:16 Dose: 3 ml Bupropion HCl (Wellbutrin) 150 mg PO BEDTIME PENDING SALE TO [facility] Last Admin: 05/23/19 19:59 Dose: 150 mg Cholecalciferol (Vitamin D3) 1,000 units PO QAM PENDING SALE TO [facility] Last Admin: 05/24/19 08:30 Dose: 1,000 units Citalopram Hydrobromide (Celexa) 20 mg PO QAM PENDING SALE TO [facility] Last Admin: 05/24/19 08:26 Dose: 20 mg Cyanocobalamin (Vitamin B12) 1,000 mcg PO QAM PENDING SALE TO [facility] Last Admin: 05/24/19 08:29 Dose: 1,000 mcg Fludrocortisone Acetate (Florinef) 0.1 mg PO BEDTIME PENDING SALE TO [facility] Last Admin: 05/23/19 19:58 Dose: 0.1 mg Fludrocortisone Acetate (Florinef) 0.2 mg PO QAM PENDING SALE TO [facility] Last Admin: 05/24/19 08:26 Dose: 0.2 mg Furosemide (Lasix) 20 mg PO DAILY PENDING SALE TO [facility] Last Admin: 05/24/19 08:26 Dose: 20 mg Ibuprofen (Motrin) 600 mg PO BID PENDING SALE TO [facility] Last Admin: 05/24/19 08:31 Dose: 600 mg Ibuprofen (Motrin) 600 mg PO Q6H PRN PRN Reason: Breakthrough Pain Last Admin: 04/25/19 19:26 Dose: 600 mg Niacin (Niacin) 500 mg PO BID PENDING SALE TO [facility] Last Admin: 05/24/19 08:27 Dose: 500 mg Levothyroxine Sodium (137 Mcg Tablets) 137 mcg PO BEDTIME PENDING SALE TO [facility] Last Admin: 05/23/19 19:58 Dose: 137 mcg Potassium Chloride (Potassium Chloride Solution) 40 meq PO TID@08,14,20 PENDING SALE TO [facility] Last Admin: 05/24/19 08:28 Dose: 40 meq Psyllium Husk (Metamucil Sugar Free) 1 pkt PO DAILY PRN PRN Reason: Diarrhea Last Admin: 05/23/19 22:43 Dose: 1 pkt Simvastatin (Zocor) 10 mg PO BEDTIME PENDING SALE TO [facility] Last Admin: 05/23/19 19:59 Dose: 10 mg Discontinued Medications Al Hydroxide/Mg Hydroxide (Mag-Al Plus) 30 ml PO Q4H PRN PRN Reason: Indigestion Calcium Carbonate/Glycine (Tums Extra Strength) 750 mg PO Q2HR PRN PRN Reason: Indigestion Last Admin: 03/03/19 20:40 Dose: 750 mg Carbamide Perox/Anhydrous Glycerin (Debrox 6.5% Otic Soln) 0 ml EARBOTH BID PENDING SALE TO [facility] Stop: 01/29/19 18:00 Last Admin: 01/29/19 19:25 Dose: 5 drop Chlorhexidine Gluconate (Peridex 0.12% Rinse) 15 ml MUCMEM BID@ PENDING SALE TO [facility] Last Admin: 05/12/18 08:41 Dose: 15 ml Clotrimazole (Lotrimin Af 1% Crm) 1 gm TOP BID PRN PRN Reason: Rash Last Admin: 07/18/18 08:50 Dose: 1 applic Diphenhydramine HCl (Benadryl) 25 mg PO Q4H PRN PRN Reason: Itching Diphenoxylate HCl/Atropine (Lomotil 0.025-2.5 Mg) 1 tab PO QID PRN PRN Reason: Diarrhea Last Admin: 02/09/18 09:50 Dose: 1 tab Furosemide (Lasix) 40 mg IM NOW ONE Stop: 12/10/17 11:52 Last Admin: 12/10/17 13:10 Dose: 40 mg Gentian Annita (Gentian Annita) 1 ml TOP DAILY PRN PRN Reason: Rash Stop: 07/28/18 20:00 Last Admin: 07/24/18 19:49 Dose: 1 applic Guaifenesin/Dextromethorphan (Robitussin Dm) 10 ml PO Q4H PRN PRN Reason: Cough Last Admin: 12/29/18 00:27 Dose: 10 ml Lactobacillus Rhamnosus (Culturelle) 2 cap PO BID PENDING SALE TO [facility] Stop: 03/02/18 18:00 Last Admin: 03/02/18 17:10 Dose: 2 cap Metoclopramide HCl (Reglan) 10 mg PO BIDAC PENDING SALE TO [facility] Last Admin: 05/21/19 07:38 Dose: 10 mg Metronidazole (Flagyl) 500 mg PO Q8H PENDING SALE TO [facility] Stop: 02/26/18 14:01 Last Admin: 02/26/18 14:14 Dose: 500 mg Metronidazole (Flagyl) 500 mg PO TID PENDING SALE TO [facility] Stop: 05/22/18 18:01 Last Admin: 05/22/18 17:55 Dose: Not Given Metronidazole (Flagyl) 500 mg PO Q8H PENDING SALE TO [facility] Stop: 10/03/18 06:01 Last Admin: 10/03/18 06:02 Dose: 500 mg Cephalexin (Keflex) (500 Mg Capsules) 500 mg PO BID PENDING SALE TO [facility] Last Admin: 03/11/18 07:56 Dose: 500 mg Fluconazole 150mg (Tablet) 1 each PO Q3D PENDING SALE TO [facility] Stop: 12/06/17 20:01 Last Admin: 12/06/17 19:13 Dose: 1 each Fluconazole 150mg (Tab Ptom) 1 each PO ONETIME ONE Stop: 02/24/19 18:01 Last Admin: 02/24/19 17:19 Dose: 1 each Nystatin (Mycostatin) 5 ml PO QID PENDING SALE TO [facility] Stop: 05/19/18 16:01 Last Admin: 05/19/18 16:00 Dose: 5 ml Omeprazole (Omeprazole) 20 mg PO DAILY PENDING SALE TO [facility] Last Admin: 03/11/18 07:55 Dose: 20 mg Potassium Chloride (Klor-Con M20) 20 meq PO ONETIME ONE Stop: 12/10/17 11:53 Last Admin: 12/10/17 13:10 Dose: 20 meq Potassium Chloride (Klor-Con M20) 20 meq PO DAILY PENDING SALE TO [facility] Tramadol HCl (Ultram) 50 mg PO Q6H PRN PRN Reason: Pain (severe 7-10) Last Admin: 10/28/18 08:04 Dose: 50 mg
[~2019-05-24 11:44] MED LIST: Aluminum Hydroxide/Magnesium Hydroxide/Simethicone Susp 30 ML Cup PO PRN; FLUCONAZOLE 150 MG PO ONE; Furosemide 40 MG/4 ML VIAL IM ONE; Potassium Chloride 20 MEQ Tab.ER PO ONE; Potassium Chloride 20 MEQ Tab.ER PO SCH; Psyllium Husk Powder Sugar Free 5.85 GM Packet PO PRN; diphenhydrAMINE 25 MG Cap PO PRN
== END | disposition swing bed (61) | DRG 92 ==
LOC: LL.SWG 11-25 09:06
PROVIDERS: ADMIT Family Medicine; ATTEND Family Medicine
DX: G71.11 Myotonic muscular dystrophy (principal); N39.0 Urinary tract infection, site not specified; A04.72 Enterocolitis due to Clostridium difficile, not specified as recurrent; I45.2 Bifascicular block; Z68.45 Body mass index [BMI] 70 or greater, adult; K02.9 Dental caries, unspecified; I50.9 Heart failure, unspecified; J44.9 Chronic obstructive pulmonary disease, unspecified; E78.00 Pure hypercholesterolemia, unspecified; K21.9 Gastro-esophageal reflux disease without esophagitis; M19.91 Primary osteoarthritis, unspecified site; G89.29 Other chronic pain; M54.9 Dorsalgia, unspecified; M81.0 Age-related osteoporosis without current pathological fracture; E03.9 Hypothyroidism, unspecified; E66.9 Obesity, unspecified; R73.9 Hyperglycemia, unspecified; F41.8 Other specified anxiety disorders; E53.8 Deficiency of other specified B group vitamins; D18.03 Hemangioma of intra-abdominal structures; I95.1 Orthostatic hypotension; I44.0 Atrioventricular block, first degree; B35.6 Tinea cruris; E83.39 Other disorders of phosphorus metabolism; E88.09 Other disorders of plasma-protein metabolism, not elsewhere classified; J98.8 Other specified respiratory disorders; B34.9 Viral infection, unspecified; S82.202D Unspecified fracture of shaft of left tibia, subsequent encounter for closed fracture with routine healing; Z88.1 Allergy status to other antibiotic agents; Z98.42 Cataract extraction status, left eye; Z79.899 Other long term (current) drug therapy; Z98.41 Cataract extraction status, right eye; Z90.49 Acquired absence of other specified parts of digestive tract; Z90.89 Acquired absence of other organs; Z87.11 Personal history of peptic ulcer disease; Z99.81 Dependence on supplemental oxygen
CPT/HCPCS: 36415; 71046; 73090-RT; 73610-LT; 73610-RT; 73660-T5; 80048; 80053; 80061; 82550; 82553; 82607; 82746; 83036; 83735; 83880; 84100; 84443; 84484; 84550; 85025; 87177; 87209; 87493; 90686; 93005; 94640; 94761; 94762; 97110-GP; 97116-GP; 97161-GP; 97162-GP; 97530-GP; A9270-GY; G0008; J1940; J7620-GY

== ENCOUNTER 2019-09-23 12:04 | Day surgery (SDC) | payer MEDICAID ==
[~2019-09-23 12:04] MED LIST changes: -Aluminum Hydroxide/Magnesium Hydroxide/Simethicone Susp 30 ML Cup PO PRN; -FLUCONAZOLE 150 MG PO ONE; -Furosemide 40 MG/4 ML VIAL IM ONE; +Lactated Ringers 1,000 ML IV SCH; -Potassium Chloride 20 MEQ Tab.ER PO ONE; -Potassium Chloride 20 MEQ Tab.ER PO SCH; +Propofol 200 MG/20 ML SDV ONE; -Psyllium Husk Powder Sugar Free 5.85 GM Packet PO PRN; +Sodium Chloride 0.9% 10 ML Syringe FLUSH PRN; -diphenhydrAMINE 25 MG Cap PO PRN
--- NOTE | 2019-09-23 12:38 | PCM.HPR ---
H & P Addendum review - H & P Addendum Review Date of Original H & P: 09/05/19 Date Reviewed: 09/23/19 Time Reviewed: 12:38 Patient was Examined: No Changes
[2019-09-23] MEDS ORDERED: Propofol 200 MG/20 ML SDV ONE (12:56)
--- NOTE | 2019-09-23 13:15 | PCM.OPNOTE ---
- General Post-Op/Procedure Note Date of Surgery/Procedure: 09/23/19 Operative Procedure(s): Colonoscopy with polypectomy Findings: Ac colon polyp Pre Op Diagnosis: Screening Post-Op Diagnosis: Same Anesthesia Technique: MAC Primary Surgeon: Velasquez Jaime Complications: None Condition: Good
[2019-09-23 13:37] VITALS: PULSE 52
[2019-09-23 13:49] VITALS: BP 99/57
--- NOTE | 2019-09-23 13:58 | OR ---
Date of Procedure: 09/23/2019 PREOPERATIVE DIAGNOSES: 1. Colon screening. 2. History of Clostridium difficile colitis. POSTOPERATIVE DIAGNOSIS: Colon polyp. PROCEDURE: Colonoscopy with polypectomy. ANESTHESIA: IV sedation. DESCRIPTION OF PROCEDURE: The patient was brought to the procedure room where she was placed on her left side and IV sedation administered. Digital rectal exam was performed which was normal. Colonoscope was inserted and advanced to the level of the cecum without difficulty. Cecal position was confirmed by identifying the appendiceal lumen and ileocecal valve. Prep was good and surfaces were well visualized. Upon withdrawing the scope, there was a 6 mm sessile polyp located in the proximal ascending colon that was removed with a cautery snare and retrieved in the polyp trap. The remaining ascending, transverse, and descending colon were normal. Sigmoid colon and rectum were normal. Retroflexion was normal. Air was removed and the scope withdrawn. The patient tolerated the procedure well and returned to Recovery in stable condition. I recommend that the patient undergo repeat colonoscopy again in 3 years if the polyp is adenomatous. If the polyp is hyperplastic, she can wait 10 years until her next colon screening. MELYSSA AGUILAR MD /[id number]
== END 2019-09-23 14:25 | disposition home or self-care (01) ==
LOC: LL.SDS 12:04
PROVIDERS: ATTEND Surgery
DX: Z12.11 Encounter for screening for malignant neoplasm of colon (principal); D12.2 Benign neoplasm of ascending colon; I50.9 Heart failure, unspecified; I44.0 Atrioventricular block, first degree; I45.2 Bifascicular block; E03.9 Hypothyroidism, unspecified; E66.9 Obesity, unspecified; E78.00 Pure hypercholesterolemia, unspecified; J44.9 Chronic obstructive pulmonary disease, unspecified; F41.3 Other mixed anxiety disorders; F32.9 Major depressive disorder, single episode, unspecified; K21.9 Gastro-esophageal reflux disease without esophagitis; G71.11 Myotonic muscular dystrophy; M19.90 Unspecified osteoarthritis, unspecified site; Z88.0 Allergy status to penicillin; Z88.5 Allergy status to narcotic agent; Z88.8 Allergy status to other drugs, medicaments and biological substances; Z91.048 Other nonmedicinal substance allergy status; Z99.81 Dependence on supplemental oxygen; Z79.52 Long term (current) use of systemic steroids; Z79.899 Other long term (current) drug therapy; Z68.31 Body mass index [BMI] 31.0-31.9, adult
CPT/HCPCS: 45385; J2704; J7120

== ENCOUNTER 2020-05-24 09:21 | Inpatient (IN) | payer MEDICAID ==
[2020-05-24] MEDS ORDERED: Albuterol/Ipratropium 3.0-0.5 MG/3 ML Neb Soln NEB PRN (09:37)
[2020-05-24] MEDS: Albuterol/Ipratropium 3.0-0.5 MG/3 ML Neb Soln NEB SCH ×4 (13:26→20:31)
[2020-05-24] MEDS: Potassium Chloride 20 MEQ Tab.ER PO SCH ×3 (13:27→19:38)
[2020-05-24] MEDS: Furosemide 20 MG Tab PO SCH (17:41)
[2020-05-24] MEDS: Niacin 500 MG Tab PO SCH (17:42)
[2020-05-24] MEDS: Fludrocortisone 0.1 MG Tab PO SCH (19:38)
[2020-05-24] MEDS: BUPROPION 300 MG PO SCH (19:38)
[2020-05-24] MEDS: LEVOTHYROXINE SODIUM 137 MCG PO SCH (19:38)
[2020-05-24] MEDS: Simvastatin 10 MG Tab PO SCH (19:39)
[2020-05-24] MEDS: Menthol/Methyl Salicylate 85 GM Tube TOP PRN (19:42)
[2020-05-24] MEDS: Acetaminophen 325 MG Tab PO PRN (19:43)
[2020-05-25] MEDS: Furosemide 20 MG Tab PO SCH ×2 (08:50→17:40)
[2020-05-25] MEDS: Fludrocortisone 0.1 MG Tab PO SCH ×2 (08:51→19:33)
[2020-05-25] MEDS: Potassium Chloride 20 MEQ Tab.ER PO SCH ×4 (08:51→19:33)
[2020-05-25] MEDS: Citalopram 20 MG Tab PO SCH (08:51)
[2020-05-25] MEDS: Albuterol/Ipratropium 3.0-0.5 MG/3 ML Neb Soln NEB SCH ×4 (08:52→19:34)
[2020-05-25] MEDS: Ferrous Sulfate 325 MG Tab PO SCH (08:52)
[2020-05-25] MEDS: Cholecalciferol (Vitamin D3) 25 MCG Tab PO SCH (08:53)
[2020-05-25] MEDS: Calcium Carbonate 750 MG Tab.Chew PO SCH (08:53)
[2020-05-25] MEDS: Cyanocobalamin (Vitamin B12) 1,000 MCG Tab PO SCH (08:53)
[2020-05-25] MEDS: Niacin 500 MG Tab PO SCH ×2 (08:53→17:41)
[2020-05-25] MEDS: Acetaminophen 325 MG Tab PO PRN (08:54)
[2020-05-25] MEDS: LEVOTHYROXINE SODIUM 137 MCG PO SCH (19:33)
[2020-05-25] MEDS: BUPROPION 300 MG PO SCH (19:33)
[2020-05-25] MEDS: Simvastatin 10 MG Tab PO SCH (19:34)
[2020-05-25] MEDS: Ibuprofen 600 MG Tab PO PRN (19:35)
[2020-05-26] MEDS: Citalopram 20 MG Tab PO SCH (07:54)
[2020-05-26] MEDS: Ferrous Sulfate 325 MG Tab PO SCH (07:55)
[2020-05-26] MEDS: Fludrocortisone 0.1 MG Tab PO SCH ×2 (07:55→19:22)
[2020-05-26] MEDS: Potassium Chloride 20 MEQ Tab.ER PO SCH ×4 (07:55→19:22)
[2020-05-26] MEDS: Niacin 500 MG Tab PO SCH ×2 (07:56→17:09)
[2020-05-26] MEDS: Furosemide 20 MG Tab PO SCH ×2 (07:56→17:09)
[2020-05-26] MEDS: Calcium Carbonate 750 MG Tab.Chew PO SCH (07:56)
[2020-05-26] MEDS: Cholecalciferol (Vitamin D3) 25 MCG Tab PO SCH (07:57)
[2020-05-26] MEDS: Cyanocobalamin (Vitamin B12) 1,000 MCG Tab PO SCH (07:57)
[2020-05-26] MEDS: Acetaminophen 325 MG Tab PO PRN ×2 (07:58→19:23)
[2020-05-26] MEDS: Albuterol/Ipratropium 3.0-0.5 MG/3 ML Neb Soln NEB SCH ×4 (08:02→19:24)
[2020-05-26] MEDS: Ibuprofen 600 MG Tab PO PRN (11:23)
[2020-05-26] MEDS: LEVOTHYROXINE SODIUM 137 MCG PO SCH (19:23)
[2020-05-26] MEDS: BUPROPION 300 MG PO SCH (19:23)
[2020-05-26] MEDS: Simvastatin 10 MG Tab PO SCH (19:23)
[2020-05-26] MEDS: Menthol/Methyl Salicylate 85 GM Tube TOP PRN (19:24)
[2020-05-27] MEDS: Albuterol/Ipratropium 3.0-0.5 MG/3 ML Neb Soln NEB SCH ×4 (07:25→19:27)
[2020-05-27] MEDS: Acetaminophen 325 MG Tab PO PRN ×3 (07:25→19:30)
[2020-05-27] MEDS: Fludrocortisone 0.1 MG Tab PO SCH ×2 (07:26→19:27)
[2020-05-27] MEDS: Citalopram 20 MG Tab PO SCH (07:26)
[2020-05-27] MEDS: Ferrous Sulfate 325 MG Tab PO SCH (07:26)
[2020-05-27] MEDS: Potassium Chloride 20 MEQ Tab.ER PO SCH ×4 (07:27→19:27)
[2020-05-27] MEDS: Niacin 500 MG Tab PO SCH ×2 (07:27→17:16)
[2020-05-27] MEDS: Furosemide 20 MG Tab PO SCH ×2 (07:27→17:16)
[2020-05-27] MEDS: Cyanocobalamin (Vitamin B12) 1,000 MCG Tab PO SCH (07:28)
[2020-05-27] MEDS: Calcium Carbonate 750 MG Tab.Chew PO SCH (07:28)
[2020-05-27] MEDS: Cholecalciferol (Vitamin D3) 25 MCG Tab PO SCH (07:28)
[2020-05-27] MEDS: Ibuprofen 600 MG Tab PO PRN (11:17)
[2020-05-27] MEDS: Simvastatin 10 MG Tab PO SCH (19:27)
[2020-05-27] MEDS: BUPROPION 300 MG PO SCH (19:27)
[2020-05-27] MEDS: LEVOTHYROXINE SODIUM 137 MCG PO SCH (19:27)
[2020-05-27] MEDS: Menthol/Methyl Salicylate 85 GM Tube TOP PRN (19:31)
[2020-05-28] MEDS: Acetaminophen 325 MG Tab PO PRN (07:31)
[2020-05-28] MEDS: Fludrocortisone 0.1 MG Tab PO SCH ×2 (07:32→19:23)
[2020-05-28] MEDS: Potassium Chloride 20 MEQ Tab.ER PO SCH ×4 (07:32→19:24)
[2020-05-28] MEDS: Ferrous Sulfate 325 MG Tab PO SCH (07:32)
[2020-05-28] MEDS: Citalopram 20 MG Tab PO SCH (07:32)
[2020-05-28] MEDS: Albuterol/Ipratropium 3.0-0.5 MG/3 ML Neb Soln NEB SCH ×4 (07:32→19:23)
[2020-05-28] MEDS: Furosemide 20 MG Tab PO SCH ×2 (07:33→17:04)
[2020-05-28] MEDS: Niacin 500 MG Tab PO SCH ×2 (07:33→17:04)
[2020-05-28] MEDS: Calcium Carbonate 750 MG Tab.Chew PO SCH (07:33)
[2020-05-28] MEDS: Cholecalciferol (Vitamin D3) 25 MCG Tab PO SCH (07:34)
[2020-05-28] MEDS: Cyanocobalamin (Vitamin B12) 1,000 MCG Tab PO SCH (07:34)
[2020-05-28] MEDS: Ibuprofen 600 MG Tab PO PRN ×2 (11:20→19:25)
[2020-05-28] MEDS: BUPROPION 300 MG PO SCH (19:24)
[2020-05-28] MEDS: Simvastatin 10 MG Tab PO SCH (19:24)
[2020-05-28] MEDS: LEVOTHYROXINE SODIUM 137 MCG PO SCH (19:24)
[2020-05-29] MEDS: Calcium Carbonate 750 MG Tab.Chew PO SCH (07:28)
[2020-05-29] MEDS: Cyanocobalamin (Vitamin B12) 1,000 MCG Tab PO SCH (07:28)
[2020-05-29] MEDS: Cholecalciferol (Vitamin D3) 25 MCG Tab PO SCH (07:28)
[2020-05-29] MEDS: Albuterol/Ipratropium 3.0-0.5 MG/3 ML Neb Soln NEB SCH ×4 (07:29→19:34)
[2020-05-29] MEDS: Citalopram 20 MG Tab PO SCH (07:29)
[2020-05-29] MEDS: Acetaminophen 325 MG Tab PO PRN (07:29)
[2020-05-29] MEDS: Ferrous Sulfate 325 MG Tab PO SCH (07:30)
[2020-05-29] MEDS: Potassium Chloride 20 MEQ Tab.ER PO SCH ×4 (07:30→19:34)
[2020-05-29] MEDS: Fludrocortisone 0.1 MG Tab PO SCH ×2 (07:30→19:34)
[2020-05-29] MEDS: Furosemide 20 MG Tab PO SCH ×2 (07:31→17:06)
[2020-05-29] MEDS: Niacin 500 MG Tab PO SCH ×2 (07:31→17:06)
[2020-05-29] MEDS: Ibuprofen 600 MG Tab PO PRN ×2 (11:13→19:36)
[2020-05-29] MEDS: Magnesium Hydroxide 400 MG/5 ML Susp 30 ML Cup PO PRN (17:09)
[2020-05-29] MEDS: LEVOTHYROXINE SODIUM 137 MCG PO SCH (19:34)
[2020-05-29] MEDS: Simvastatin 10 MG Tab PO SCH (19:35)
[2020-05-29] MEDS: BUPROPION 300 MG PO SCH (19:35)
[2020-05-30] MEDS: Albuterol/Ipratropium 3.0-0.5 MG/3 ML Neb Soln NEB SCH ×4 (08:31→19:35)
[2020-05-30] MEDS: Citalopram 20 MG Tab PO SCH (08:31)
[2020-05-30] MEDS: Furosemide 20 MG Tab PO SCH ×2 (08:32→17:18)
[2020-05-30] MEDS: Potassium Chloride 20 MEQ Tab.ER PO SCH ×4 (08:32→19:35)
[2020-05-30] MEDS: Fludrocortisone 0.1 MG Tab PO SCH ×2 (08:32→19:35)
[2020-05-30] MEDS: Ferrous Sulfate 325 MG Tab PO SCH (08:33)
[2020-05-30] MEDS: Niacin 500 MG Tab PO SCH ×2 (08:33→17:18)
[2020-05-30] MEDS: Cholecalciferol (Vitamin D3) 25 MCG Tab PO SCH (08:33)
[2020-05-30] MEDS: Cyanocobalamin (Vitamin B12) 1,000 MCG Tab PO SCH (08:33)
[2020-05-30] MEDS: Acetaminophen 325 MG Tab PO PRN ×2 (08:34→17:18)
[2020-05-30] MEDS: Calcium Carbonate 750 MG Tab.Chew PO SCH (08:34)
[2020-05-30] MEDS: Magnesium Hydroxide 400 MG/5 ML Susp 30 ML Cup PO PRN (12:54)
[2020-05-30] MEDS: Bisacodyl 5 MG Tab PO PRN (18:27)
[2020-05-30] MEDS: Simvastatin 10 MG Tab PO SCH (19:36)
[2020-05-30] MEDS: BUPROPION 300 MG PO SCH (19:36)
[2020-05-30] MEDS: LEVOTHYROXINE SODIUM 137 MCG PO SCH (19:36)
[2020-05-30] MEDS: Menthol/Methyl Salicylate 85 GM Tube TOP PRN (19:37)
[2020-05-31] MEDS: Acetaminophen 325 MG Tab PO PRN ×2 (04:35→15:26)
[2020-05-31] MEDS: Menthol/Methyl Salicylate 85 GM Tube TOP PRN (04:42)
[2020-05-31] MEDS: Furosemide 20 MG Tab PO SCH ×2 (07:23→17:00)
[2020-05-31] MEDS: Albuterol/Ipratropium 3.0-0.5 MG/3 ML Neb Soln NEB SCH ×4 (07:23→19:34)
[2020-05-31] MEDS: Citalopram 20 MG Tab PO SCH (07:24)
[2020-05-31] MEDS: Potassium Chloride 20 MEQ Tab.ER PO SCH ×4 (07:24→19:35)
[2020-05-31] MEDS: Fludrocortisone 0.1 MG Tab PO SCH ×2 (07:24→19:35)
[2020-05-31] MEDS: Calcium Carbonate 750 MG Tab.Chew PO SCH (07:25)
[2020-05-31] MEDS: Niacin 500 MG Tab PO SCH ×2 (07:25→17:01)
[2020-05-31] MEDS: Ferrous Sulfate 325 MG Tab PO SCH (07:25)
[2020-05-31] MEDS: Cholecalciferol (Vitamin D3) 25 MCG Tab PO SCH (07:26)
[2020-05-31] MEDS: Cyanocobalamin (Vitamin B12) 1,000 MCG Tab PO SCH (07:26)
[2020-05-31] MEDS: Simvastatin 10 MG Tab PO SCH (19:36)
[2020-05-31] MEDS: LEVOTHYROXINE SODIUM 137 MCG PO SCH (19:36)
[2020-05-31] MEDS: BUPROPION 300 MG PO SCH (19:36)
[2020-06-01] MEDS: Fludrocortisone 0.1 MG Tab PO SCH ×2 (08:17→19:36)
[2020-06-01] MEDS: Furosemide 20 MG Tab PO SCH ×2 (08:17→17:49)
[2020-06-01] MEDS: Citalopram 20 MG Tab PO SCH (08:17)
[2020-06-01] MEDS: Albuterol/Ipratropium 3.0-0.5 MG/3 ML Neb Soln NEB SCH ×4 (08:18→19:36)
[2020-06-01] MEDS: Potassium Chloride 20 MEQ Tab.ER PO SCH ×4 (08:18→19:37)
[2020-06-01] MEDS: Acetaminophen 325 MG Tab PO PRN (08:19)
[2020-06-01] MEDS: Ferrous Sulfate 325 MG Tab PO SCH (08:19)
[2020-06-01] MEDS: Calcium Carbonate 750 MG Tab.Chew PO SCH (08:21)
[2020-06-01] MEDS: Cholecalciferol (Vitamin D3) 25 MCG Tab PO SCH (08:21)
[2020-06-01] MEDS: Cyanocobalamin (Vitamin B12) 1,000 MCG Tab PO SCH (08:22)
[2020-06-01] MEDS: Niacin 500 MG Tab PO SCH ×2 (08:22→17:50)
[2020-06-01] MEDS: LEVOTHYROXINE SODIUM 137 MCG PO SCH (19:37)
[2020-06-01] MEDS: Simvastatin 10 MG Tab PO SCH (19:38)
[2020-06-01] MEDS: BUPROPION 300 MG PO SCH (19:38)
[2020-06-02] MEDS: Fludrocortisone 0.1 MG Tab PO SCH ×2 (08:27→19:08)
[2020-06-02] MEDS: Potassium Chloride 20 MEQ Tab.ER PO SCH ×4 (08:27→19:08)
[2020-06-02] MEDS: Furosemide 20 MG Tab PO SCH ×2 (08:27→17:00)
[2020-06-02] MEDS: Citalopram 20 MG Tab PO SCH (08:28)
[2020-06-02] MEDS: Ferrous Sulfate 325 MG Tab PO SCH (08:29)
[2020-06-02] MEDS: Albuterol/Ipratropium 3.0-0.5 MG/3 ML Neb Soln NEB SCH ×4 (08:29→19:08)
[2020-06-02] MEDS: Calcium Carbonate 750 MG Tab.Chew PO SCH (08:30)
[2020-06-02] MEDS: Niacin 500 MG Tab PO SCH ×2 (08:30→16:59)
[2020-06-02] MEDS: Cyanocobalamin (Vitamin B12) 1,000 MCG Tab PO SCH (08:30)
[2020-06-02] MEDS: Ibuprofen 600 MG Tab PO PRN ×2 (08:31→19:10)
[2020-06-02] MEDS: Cholecalciferol (Vitamin D3) 25 MCG Tab PO SCH (08:31)
[2020-06-02] MEDS: Menthol/Methyl Salicylate 85 GM Tube TOP PRN ×2 (12:45→19:09)
[2020-06-02] MEDS: Acetaminophen 325 MG Tab PO PRN (12:45)
[2020-06-02] MEDS: Simvastatin 10 MG Tab PO SCH (19:09)
[2020-06-02] MEDS: LEVOTHYROXINE SODIUM 137 MCG PO SCH (19:09)
[2020-06-02] MEDS: BUPROPION 300 MG PO SCH (19:09)
[2020-06-03] MEDS: Furosemide 20 MG Tab PO SCH ×2 (08:21→17:22)
[2020-06-03] MEDS: Citalopram 20 MG Tab PO SCH (08:21)
[2020-06-03] MEDS: Fludrocortisone 0.1 MG Tab PO SCH ×2 (08:21→19:21)
[2020-06-03] MEDS: Potassium Chloride 20 MEQ Tab.ER PO SCH ×4 (08:21→19:21)
[2020-06-03] MEDS: Albuterol/Ipratropium 3.0-0.5 MG/3 ML Neb Soln NEB SCH ×4 (08:22→19:21)
[2020-06-03] MEDS: Ferrous Sulfate 325 MG Tab PO SCH (08:22)
[2020-06-03] MEDS: Acetaminophen 325 MG Tab PO PRN ×2 (08:22→19:23)
[2020-06-03] MEDS: Niacin 500 MG Tab PO SCH ×2 (08:23→17:22)
[2020-06-03] MEDS: Calcium Carbonate 750 MG Tab.Chew PO SCH (08:23)
[2020-06-03] MEDS: Cyanocobalamin (Vitamin B12) 1,000 MCG Tab PO SCH (08:23)
[2020-06-03] MEDS: Cholecalciferol (Vitamin D3) 25 MCG Tab PO SCH (08:24)
[2020-06-03] MEDS: BUPROPION 300 MG PO SCH (19:22)
[2020-06-03] MEDS: Menthol/Methyl Salicylate 85 GM Tube TOP PRN (19:22)
[2020-06-03] MEDS: LEVOTHYROXINE SODIUM 137 MCG PO SCH (19:22)
[2020-06-03] MEDS: Simvastatin 10 MG Tab PO SCH (19:22)
[2020-06-04] MEDS: Cholecalciferol (Vitamin D3) 25 MCG Tab PO SCH (08:19)
[2020-06-04] MEDS: Acetaminophen 325 MG Tab PO PRN ×2 (08:19→19:40)
[2020-06-04] MEDS: Cyanocobalamin (Vitamin B12) 1,000 MCG Tab PO SCH (08:20)
[2020-06-04] MEDS: Citalopram 20 MG Tab PO SCH (08:20)
[2020-06-04] MEDS: Albuterol/Ipratropium 3.0-0.5 MG/3 ML Neb Soln NEB SCH ×4 (08:20→19:38)
[2020-06-04] MEDS: Furosemide 20 MG Tab PO SCH ×2 (08:20→17:21)
[2020-06-04] MEDS: Ferrous Sulfate 325 MG Tab PO SCH (08:20)
[2020-06-04] MEDS: Fludrocortisone 0.1 MG Tab PO SCH ×2 (08:21→19:39)
[2020-06-04] MEDS: Calcium Carbonate 750 MG Tab.Chew PO SCH (08:21)
[2020-06-04] MEDS: Potassium Chloride 20 MEQ Tab.ER PO SCH ×4 (08:21→19:39)
[2020-06-04] MEDS: Niacin 500 MG Tab PO SCH ×2 (08:22→17:21)
[2020-06-04] MEDS: BUPROPION 300 MG PO SCH (19:39)
[2020-06-04] MEDS: Simvastatin 10 MG Tab PO SCH (19:39)
[2020-06-04] MEDS: LEVOTHYROXINE SODIUM 137 MCG PO SCH (19:39)
[2020-06-04] MEDS: Menthol/Methyl Salicylate 85 GM Tube TOP PRN (19:45)
[2020-06-05] MEDS: Citalopram 20 MG Tab PO SCH (07:20)
[2020-06-05] MEDS: Fludrocortisone 0.1 MG Tab PO SCH ×2 (07:20→19:18)
[2020-06-05] MEDS: Furosemide 20 MG Tab PO SCH ×2 (07:20→17:17)
[2020-06-05] MEDS: Potassium Chloride 20 MEQ Tab.ER PO SCH ×4 (07:20→19:19)
[2020-06-05] MEDS: Niacin 500 MG Tab PO SCH ×2 (07:21→17:17)
[2020-06-05] MEDS: Ferrous Sulfate 325 MG Tab PO SCH (07:21)
[2020-06-05] MEDS: Albuterol/Ipratropium 3.0-0.5 MG/3 ML Neb Soln NEB SCH ×4 (07:21→19:19)
[2020-06-05] MEDS: Calcium Carbonate 750 MG Tab.Chew PO SCH (07:22)
[2020-06-05] MEDS: Cyanocobalamin (Vitamin B12) 1,000 MCG Tab PO SCH (07:23)
[2020-06-05] MEDS: Cholecalciferol (Vitamin D3) 25 MCG Tab PO SCH (07:23)
[2020-06-05] MEDS: Simvastatin 10 MG Tab PO SCH (19:19)
[2020-06-05] MEDS: LEVOTHYROXINE SODIUM 137 MCG PO SCH (19:19)
[2020-06-05] MEDS: BUPROPION 300 MG PO SCH (19:19)
[2020-06-05] MEDS: Menthol/Methyl Salicylate 85 GM Tube TOP PRN (19:20)
[2020-06-06] MEDS: Potassium Chloride 20 MEQ Tab.ER PO SCH ×4 (08:27→19:36)
[2020-06-06] MEDS: Niacin 500 MG Tab PO SCH ×2 (08:28→17:16)
[2020-06-06] MEDS: Furosemide 20 MG Tab PO SCH ×2 (08:28→17:16)
[2020-06-06] MEDS: Fludrocortisone 0.1 MG Tab PO SCH ×2 (08:28→19:35)
[2020-06-06] MEDS: Citalopram 20 MG Tab PO SCH (08:28)
[2020-06-06] MEDS: Cholecalciferol (Vitamin D3) 25 MCG Tab PO SCH (08:29)
[2020-06-06] MEDS: Albuterol/Ipratropium 3.0-0.5 MG/3 ML Neb Soln NEB SCH ×4 (08:29→19:35)
[2020-06-06] MEDS: Cyanocobalamin (Vitamin B12) 1,000 MCG Tab PO SCH (08:29)
[2020-06-06] MEDS: Calcium Carbonate 750 MG Tab.Chew PO SCH (08:29)
[2020-06-06] MEDS: Ferrous Sulfate 325 MG Tab PO SCH (08:29)
[2020-06-06] MEDS: Acetaminophen 325 MG Tab PO PRN (08:30)
[2020-06-06] MEDS: LEVOTHYROXINE SODIUM 137 MCG PO SCH (19:36)
[2020-06-06] MEDS: BUPROPION 300 MG PO SCH (19:37)
[2020-06-06] MEDS: Simvastatin 10 MG Tab PO SCH (19:37)
[2020-06-06] MEDS: Menthol/Methyl Salicylate 85 GM Tube TOP PRN (19:54)
[2020-06-07] MEDS: Acetaminophen 325 MG Tab PO PRN ×3 (03:13→19:27)
[2020-06-07] MEDS: Citalopram 20 MG Tab PO SCH (08:02)
[2020-06-07] MEDS: Fludrocortisone 0.1 MG Tab PO SCH ×2 (08:03→19:26)
[2020-06-07] MEDS: Ferrous Sulfate 325 MG Tab PO SCH (08:03)
[2020-06-07] MEDS: Potassium Chloride 20 MEQ Tab.ER PO SCH ×4 (08:03→19:26)
[2020-06-07] MEDS: Albuterol/Ipratropium 3.0-0.5 MG/3 ML Neb Soln NEB SCH ×4 (08:03→19:26)
[2020-06-07] MEDS: Furosemide 20 MG Tab PO SCH ×2 (08:04→17:20)
[2020-06-07] MEDS: Cholecalciferol (Vitamin D3) 25 MCG Tab PO SCH (08:05)
[2020-06-07] MEDS: Niacin 500 MG Tab PO SCH ×2 (08:05→17:20)
[2020-06-07] MEDS: Cyanocobalamin (Vitamin B12) 1,000 MCG Tab PO SCH (08:05)
[2020-06-07] MEDS: Calcium Carbonate 750 MG Tab.Chew PO SCH (08:05)
[2020-06-07] MEDS: Ibuprofen 600 MG Tab PO PRN (11:07)
[2020-06-07] MEDS: Aluminum Hydroxide/Magnesium Hydroxide/Simethicone Susp 30 ML Cup PO PRN (11:11)
[2020-06-07] MEDS: Magnesium Hydroxide 400 MG/5 ML Susp 30 ML Cup PO PRN (11:33)
[2020-06-07] MEDS: BUPROPION 300 MG PO SCH (19:27)
[2020-06-07] MEDS: Simvastatin 10 MG Tab PO SCH (19:27)
[2020-06-07] MEDS: LEVOTHYROXINE SODIUM 137 MCG PO SCH (19:27)
[2020-06-07] MEDS: Menthol/Methyl Salicylate 85 GM Tube TOP PRN (19:28)
[2020-06-08] MEDS: Acetaminophen 325 MG Tab PO PRN ×3 (04:33→19:46)
[2020-06-08] MEDS: Menthol/Methyl Salicylate 85 GM Tube TOP PRN ×2 (04:34→11:40)
[2020-06-08] MEDS: Citalopram 20 MG Tab PO SCH (07:58)
[2020-06-08] MEDS: Furosemide 20 MG Tab PO SCH ×2 (07:59→17:14)
[2020-06-08] MEDS: Potassium Chloride 20 MEQ Tab.ER PO SCH ×4 (07:59→19:41)
[2020-06-08] MEDS: Ferrous Sulfate 325 MG Tab PO SCH (07:59)
[2020-06-08] MEDS: Albuterol/Ipratropium 3.0-0.5 MG/3 ML Neb Soln NEB SCH ×4 (07:59→19:38)
[2020-06-08] MEDS: Fludrocortisone 0.1 MG Tab PO SCH ×2 (07:59→19:38)
[2020-06-08] MEDS: Niacin 500 MG Tab PO SCH ×2 (08:00→17:14)
[2020-06-08] MEDS: Calcium Carbonate 750 MG Tab.Chew PO SCH (08:00)
[2020-06-08] MEDS: Ibuprofen 600 MG Tab PO PRN (08:00)
[2020-06-08] MEDS: Cholecalciferol (Vitamin D3) 25 MCG Tab PO SCH (08:01)
[2020-06-08] MEDS: Cyanocobalamin (Vitamin B12) 1,000 MCG Tab PO SCH (08:01)
[2020-06-08] MEDS: Simvastatin 10 MG Tab PO SCH (19:41)
[2020-06-08] MEDS: LEVOTHYROXINE SODIUM 137 MCG PO SCH (19:41)
[2020-06-08] MEDS: BUPROPION 300 MG PO SCH (19:41)
[2020-06-09] MEDS: Citalopram 20 MG Tab PO SCH (08:29)
[2020-06-09] MEDS: Furosemide 20 MG Tab PO SCH ×2 (08:30→17:00)
[2020-06-09] MEDS: Potassium Chloride 20 MEQ Tab.ER PO SCH ×4 (08:30→19:29)
[2020-06-09] MEDS: Fludrocortisone 0.1 MG Tab PO SCH ×2 (08:30→19:28)
[2020-06-09] MEDS: Ferrous Sulfate 325 MG Tab PO SCH (08:31)
[2020-06-09] MEDS: Albuterol/Ipratropium 3.0-0.5 MG/3 ML Neb Soln NEB SCH ×4 (08:31→19:28)
[2020-06-09] MEDS: Calcium Carbonate 750 MG Tab.Chew PO SCH (08:32)
[2020-06-09] MEDS: Niacin 500 MG Tab PO SCH ×2 (08:32→17:00)
[2020-06-09] MEDS: Cyanocobalamin (Vitamin B12) 1,000 MCG Tab PO SCH (08:33)
[2020-06-09] MEDS: Cholecalciferol (Vitamin D3) 25 MCG Tab PO SCH (08:33)
[2020-06-09] MEDS: Acetaminophen 325 MG Tab PO PRN ×2 (08:34→17:01)
[2020-06-09] MEDS: BUPROPION 300 MG PO SCH (19:29)
[2020-06-09] MEDS: LEVOTHYROXINE SODIUM 137 MCG PO SCH (19:29)
[2020-06-09] MEDS: Simvastatin 10 MG Tab PO SCH (19:30)
[2020-06-10] MEDS: Potassium Chloride 20 MEQ Tab.ER PO SCH ×4 (08:31→19:30)
[2020-06-10] MEDS: Citalopram 20 MG Tab PO SCH (08:31)
[2020-06-10] MEDS: Furosemide 20 MG Tab PO SCH ×2 (08:31→17:00)
[2020-06-10] MEDS: Fludrocortisone 0.1 MG Tab PO SCH ×2 (08:31→19:30)
[2020-06-10] MEDS: Albuterol/Ipratropium 3.0-0.5 MG/3 ML Neb Soln NEB SCH ×4 (08:33→19:29)
[2020-06-10] MEDS: Ferrous Sulfate 325 MG Tab PO SCH (08:34)
[2020-06-10] MEDS: Acetaminophen 325 MG Tab PO PRN (08:35)
[2020-06-10] MEDS: Niacin 500 MG Tab PO SCH ×2 (08:36→17:00)
[2020-06-10] MEDS: Calcium Carbonate 750 MG Tab.Chew PO SCH (08:36)
[2020-06-10] MEDS: Cholecalciferol (Vitamin D3) 25 MCG Tab PO SCH (08:37)
[2020-06-10] MEDS: Cyanocobalamin (Vitamin B12) 1,000 MCG Tab PO SCH (08:37)
[2020-06-10] MEDS: LEVOTHYROXINE SODIUM 137 MCG PO SCH (19:30)
[2020-06-10] MEDS: Simvastatin 10 MG Tab PO SCH (19:31)
[2020-06-10] MEDS: BUPROPION 300 MG PO SCH (19:31)
[2020-06-11] MEDS: Citalopram 20 MG Tab PO SCH (07:57)
[2020-06-11] MEDS: Albuterol/Ipratropium 3.0-0.5 MG/3 ML Neb Soln NEB SCH ×4 (07:57→19:28)
[2020-06-11] MEDS: Fludrocortisone 0.1 MG Tab PO SCH ×2 (07:58→19:28)
[2020-06-11] MEDS: Ferrous Sulfate 325 MG Tab PO SCH (07:58)
[2020-06-11] MEDS: Furosemide 20 MG Tab PO SCH ×2 (07:58→17:37)
[2020-06-11] MEDS: Potassium Chloride 20 MEQ Tab.ER PO SCH ×4 (07:58→19:29)
[2020-06-11] MEDS: Calcium Carbonate 750 MG Tab.Chew PO SCH (08:00)
[2020-06-11] MEDS: Cyanocobalamin (Vitamin B12) 1,000 MCG Tab PO SCH (08:01)
[2020-06-11] MEDS: Niacin 500 MG Tab PO SCH ×2 (08:01→17:37)
[2020-06-11] MEDS: Cholecalciferol (Vitamin D3) 25 MCG Tab PO SCH (08:01)
[2020-06-11] MEDS: Acetaminophen 325 MG Tab PO PRN (08:06)
[2020-06-11] MEDS: Ibuprofen 600 MG Tab PO PRN (12:05)
[2020-06-11] MEDS: LEVOTHYROXINE SODIUM 137 MCG PO SCH (19:29)
[2020-06-11] MEDS: BUPROPION 300 MG PO SCH (19:30)
[2020-06-11] MEDS: Simvastatin 10 MG Tab PO SCH (19:30)
[2020-06-12] MEDS: Menthol/Methyl Salicylate 85 GM Tube TOP PRN ×3 (08:03→19:59)
[2020-06-12] MEDS: Potassium Chloride 20 MEQ Tab.ER PO SCH ×4 (08:04→19:58)
[2020-06-12] MEDS: Furosemide 20 MG Tab PO SCH ×2 (08:05→17:03)
[2020-06-12] MEDS: Albuterol/Ipratropium 3.0-0.5 MG/3 ML Neb Soln NEB SCH ×4 (08:05→19:57)
[2020-06-12] MEDS: Fludrocortisone 0.1 MG Tab PO SCH ×2 (08:05→19:57)
[2020-06-12] MEDS: Citalopram 20 MG Tab PO SCH (08:05)
[2020-06-12] MEDS: Niacin 500 MG Tab PO SCH ×2 (08:06→17:03)
[2020-06-12] MEDS: Calcium Carbonate 750 MG Tab.Chew PO SCH (08:06)
[2020-06-12] MEDS: Ferrous Sulfate 325 MG Tab PO SCH (08:06)
[2020-06-12] MEDS: Cholecalciferol (Vitamin D3) 25 MCG Tab PO SCH (08:07)
[2020-06-12] MEDS: Cyanocobalamin (Vitamin B12) 1,000 MCG Tab PO SCH (08:07)
[2020-06-12] MEDS: Ibuprofen 600 MG Tab PO PRN ×2 (08:08→20:00)
[2020-06-12] MEDS: Acetaminophen 325 MG Tab PO PRN (12:17)
[2020-06-12] MEDS: LEVOTHYROXINE SODIUM 137 MCG PO SCH (19:58)
[2020-06-12] MEDS: Simvastatin 10 MG Tab PO SCH (19:59)
[2020-06-12] MEDS: BUPROPION 300 MG PO SCH (19:59)
[2020-06-13] MEDS: Citalopram 20 MG Tab PO SCH (08:49)
[2020-06-13] MEDS: Albuterol/Ipratropium 3.0-0.5 MG/3 ML Neb Soln NEB SCH ×4 (08:49→19:41)
[2020-06-13] MEDS: Potassium Chloride 20 MEQ Tab.ER PO SCH ×4 (08:50→19:41)
[2020-06-13] MEDS: Furosemide 20 MG Tab PO SCH ×2 (08:50→18:02)
[2020-06-13] MEDS: Fludrocortisone 0.1 MG Tab PO SCH ×2 (08:50→19:41)
[2020-06-13] MEDS: Ferrous Sulfate 325 MG Tab PO SCH (08:52)
[2020-06-13] MEDS: Niacin 500 MG Tab PO SCH ×2 (08:53→18:02)
[2020-06-13] MEDS: Calcium Carbonate 750 MG Tab.Chew PO SCH (08:54)
[2020-06-13] MEDS: Cholecalciferol (Vitamin D3) 25 MCG Tab PO SCH (08:56)
[2020-06-13] MEDS: Cyanocobalamin (Vitamin B12) 1,000 MCG Tab PO SCH (08:56)
[2020-06-13] MEDS: Acetaminophen 325 MG Tab PO PRN (13:14)
[2020-06-13] MEDS: Simvastatin 10 MG Tab PO SCH (19:42)
[2020-06-13] MEDS: LEVOTHYROXINE SODIUM 137 MCG PO SCH (19:42)
[2020-06-13] MEDS: BUPROPION 300 MG PO SCH (19:42)
[2020-06-13] MEDS: Ibuprofen 600 MG Tab PO PRN (19:44)
[2020-06-13] MEDS: Menthol/Methyl Salicylate 85 GM Tube TOP PRN (19:45)
[2020-06-14] MEDS: Citalopram 20 MG Tab PO SCH (08:08)
[2020-06-14] MEDS: Fludrocortisone 0.1 MG Tab PO SCH ×2 (08:09→19:25)
[2020-06-14] MEDS: Ferrous Sulfate 325 MG Tab PO SCH (08:09)
[2020-06-14] MEDS: Albuterol/Ipratropium 3.0-0.5 MG/3 ML Neb Soln NEB SCH ×4 (08:09→19:27)
[2020-06-14] MEDS: Potassium Chloride 20 MEQ Tab.ER PO SCH ×4 (08:10→19:25)
[2020-06-14] MEDS: Furosemide 20 MG Tab PO SCH ×2 (08:10→17:06)
[2020-06-14] MEDS: Niacin 500 MG Tab PO SCH ×2 (08:10→17:06)
[2020-06-14] MEDS: Calcium Carbonate 750 MG Tab.Chew PO SCH (08:10)
[2020-06-14] MEDS: Cyanocobalamin (Vitamin B12) 1,000 MCG Tab PO SCH (08:11)
[2020-06-14] MEDS: Cholecalciferol (Vitamin D3) 25 MCG Tab PO SCH (08:11)
[2020-06-14] MEDS: Acetaminophen 325 MG Tab PO PRN (08:14)
[2020-06-14] MEDS: Ibuprofen 600 MG Tab PO PRN ×2 (11:13→19:28)
[2020-06-14] MEDS: BUPROPION 300 MG PO SCH (19:26)
[2020-06-14] MEDS: Simvastatin 10 MG Tab PO SCH (19:26)
[2020-06-14] MEDS: LEVOTHYROXINE SODIUM 137 MCG PO SCH (19:26)
[2020-06-14] MEDS: Menthol/Methyl Salicylate 85 GM Tube TOP PRN (19:27)
[2020-06-15] MEDS: Acetaminophen 325 MG Tab PO PRN (02:15)
[2020-06-15] MEDS: Menthol/Methyl Salicylate 85 GM Tube TOP PRN ×2 (02:22→19:22)
[2020-06-15] MEDS: Furosemide 20 MG Tab PO SCH ×2 (08:04→17:04)
[2020-06-15] MEDS: Citalopram 20 MG Tab PO SCH (08:04)
[2020-06-15] MEDS: Niacin 500 MG Tab PO SCH ×2 (08:04→17:06)
[2020-06-15] MEDS: Fludrocortisone 0.1 MG Tab PO SCH ×2 (08:04→19:19)
[2020-06-15] MEDS: Potassium Chloride 20 MEQ Tab.ER PO SCH ×4 (08:04→19:20)
[2020-06-15] MEDS: Calcium Carbonate 750 MG Tab.Chew PO SCH (08:05)
[2020-06-15] MEDS: Cholecalciferol (Vitamin D3) 25 MCG Tab PO SCH (08:05)
[2020-06-15] MEDS: Cyanocobalamin (Vitamin B12) 1,000 MCG Tab PO SCH (08:05)
[2020-06-15] MEDS: Ferrous Sulfate 325 MG Tab PO SCH (08:06)
[2020-06-15] MEDS: Albuterol/Ipratropium 3.0-0.5 MG/3 ML Neb Soln NEB SCH ×4 (08:06→19:18)
[2020-06-15] MEDS: LEVOTHYROXINE SODIUM 137 MCG PO SCH (19:20)
[2020-06-15] MEDS: BUPROPION 300 MG PO SCH (19:20)
[2020-06-15] MEDS: Simvastatin 10 MG Tab PO SCH (19:21)
[2020-06-16] MEDS: Albuterol/Ipratropium 3.0-0.5 MG/3 ML Neb Soln NEB SCH ×4 (07:59→19:30)
[2020-06-16] MEDS: Citalopram 20 MG Tab PO SCH (08:00)
[2020-06-16] MEDS: Acetaminophen 325 MG Tab PO PRN ×3 (08:00→19:31)
[2020-06-16] MEDS: Niacin 500 MG Tab PO SCH ×2 (08:01→17:05)
[2020-06-16] MEDS: Potassium Chloride 20 MEQ Tab.ER PO SCH ×4 (08:01→19:30)
[2020-06-16] MEDS: Furosemide 20 MG Tab PO SCH ×2 (08:01→17:04)
[2020-06-16] MEDS: Ferrous Sulfate 325 MG Tab PO SCH (08:01)
[2020-06-16] MEDS: Fludrocortisone 0.1 MG Tab PO SCH ×2 (08:01→19:30)
[2020-06-16] MEDS: Cyanocobalamin (Vitamin B12) 1,000 MCG Tab PO SCH (08:02)
[2020-06-16] MEDS: Cholecalciferol (Vitamin D3) 25 MCG Tab PO SCH (08:02)
[2020-06-16] MEDS: Calcium Carbonate 750 MG Tab.Chew PO SCH (08:02)
[2020-06-16] MEDS: Ibuprofen 600 MG Tab PO PRN (11:12)
[2020-06-16] MEDS: BUPROPION 300 MG PO SCH (19:30)
[2020-06-16] MEDS: LEVOTHYROXINE SODIUM 137 MCG PO SCH (19:30)
[2020-06-16] MEDS: Simvastatin 10 MG Tab PO SCH (19:31)
[2020-06-16] MEDS: Menthol/Methyl Salicylate 85 GM Tube TOP PRN (19:32)
[2020-06-17] MEDS: Menthol/Methyl Salicylate 85 GM Tube TOP PRN ×2 (01:41→19:41)
[2020-06-17] MEDS: Acetaminophen 325 MG Tab PO PRN ×3 (01:41→15:05)
[2020-06-17] MEDS: Citalopram 20 MG Tab PO SCH (07:59)
[2020-06-17] MEDS: Albuterol/Ipratropium 3.0-0.5 MG/3 ML Neb Soln NEB SCH ×4 (07:59→19:40)
[2020-06-17] MEDS: Potassium Chloride 20 MEQ Tab.ER PO SCH ×4 (08:00→19:40)
[2020-06-17] MEDS: Furosemide 20 MG Tab PO SCH ×2 (08:00→17:10)
[2020-06-17] MEDS: Ferrous Sulfate 325 MG Tab PO SCH (08:00)
[2020-06-17] MEDS: Fludrocortisone 0.1 MG Tab PO SCH ×2 (08:00→19:40)
[2020-06-17] MEDS: Niacin 500 MG Tab PO SCH ×2 (08:01→17:10)
[2020-06-17] MEDS: Cholecalciferol (Vitamin D3) 25 MCG Tab PO SCH (08:02)
[2020-06-17] MEDS: Cyanocobalamin (Vitamin B12) 1,000 MCG Tab PO SCH (08:02)
[2020-06-17] MEDS: Calcium Carbonate 750 MG Tab.Chew PO SCH (08:02)
[2020-06-17] MEDS: Ibuprofen 600 MG Tab PO PRN ×2 (11:09→19:42)
[2020-06-17] MEDS: LEVOTHYROXINE SODIUM 137 MCG PO SCH (19:40)
[2020-06-17] MEDS: BUPROPION 300 MG PO SCH (19:40)
[2020-06-17] MEDS: Simvastatin 10 MG Tab PO SCH (19:41)
[2020-06-18] MEDS: Menthol/Methyl Salicylate 85 GM Tube TOP PRN ×2 (03:05→19:15)
[2020-06-18] MEDS: Acetaminophen 325 MG Tab PO PRN ×4 (03:06→19:16)
[2020-06-18] MEDS: Citalopram 20 MG Tab PO SCH (07:25)
[2020-06-18] MEDS: Albuterol/Ipratropium 3.0-0.5 MG/3 ML Neb Soln NEB SCH ×4 (07:25→19:13)
[2020-06-18] MEDS: Ferrous Sulfate 325 MG Tab PO SCH (07:25)
[2020-06-18] MEDS: Potassium Chloride 20 MEQ Tab.ER PO SCH ×4 (07:28→19:13)
[2020-06-18] MEDS: Niacin 500 MG Tab PO SCH ×2 (07:28→17:04)
[2020-06-18] MEDS: Fludrocortisone 0.1 MG Tab PO SCH ×2 (07:28→19:13)
[2020-06-18] MEDS: Furosemide 20 MG Tab PO SCH ×2 (07:28→17:04)
[2020-06-18] MEDS: Cyanocobalamin (Vitamin B12) 1,000 MCG Tab PO SCH (07:29)
[2020-06-18] MEDS: Cholecalciferol (Vitamin D3) 25 MCG Tab PO SCH (07:29)
[2020-06-18] MEDS: Calcium Carbonate 750 MG Tab.Chew PO SCH (07:29)
[2020-06-18] MEDS: Ibuprofen 600 MG Tab PO PRN (11:07)
[2020-06-18] MEDS: LEVOTHYROXINE SODIUM 137 MCG PO SCH (19:14)
[2020-06-18] MEDS: Simvastatin 10 MG Tab PO SCH (19:14)
[2020-06-18] MEDS: BUPROPION 300 MG PO SCH (19:14)
[2020-06-19] MEDS: Ibuprofen 600 MG Tab PO PRN ×2 (03:13→15:29)
[2020-06-19] MEDS: Fludrocortisone 0.1 MG Tab PO SCH ×2 (08:09→19:44)
[2020-06-19] MEDS: Potassium Chloride 20 MEQ Tab.ER PO SCH ×4 (08:10→19:45)
[2020-06-19] MEDS: Furosemide 20 MG Tab PO SCH ×2 (08:10→17:50)
[2020-06-19] MEDS: Citalopram 20 MG Tab PO SCH (08:11)
[2020-06-19] MEDS: Albuterol/Ipratropium 3.0-0.5 MG/3 ML Neb Soln NEB SCH ×4 (08:11→19:44)
[2020-06-19] MEDS: Niacin 500 MG Tab PO SCH ×2 (08:12→17:49)
[2020-06-19] MEDS: Ferrous Sulfate 325 MG Tab PO SCH (08:12)
[2020-06-19] MEDS: Cyanocobalamin (Vitamin B12) 1,000 MCG Tab PO SCH (08:13)
[2020-06-19] MEDS: Calcium Carbonate 750 MG Tab.Chew PO SCH (08:13)
[2020-06-19] MEDS: Cholecalciferol (Vitamin D3) 25 MCG Tab PO SCH (08:14)
[2020-06-19] MEDS: Acetaminophen 325 MG Tab PO PRN ×2 (08:18→19:48)
[2020-06-19] MEDS: LEVOTHYROXINE SODIUM 137 MCG PO SCH (19:45)
[2020-06-19] MEDS: Simvastatin 10 MG Tab PO SCH (19:46)
[2020-06-19] MEDS: BUPROPION 300 MG PO SCH (19:46)
[2020-06-19] MEDS: Menthol/Methyl Salicylate 85 GM Tube TOP PRN (19:46)
[2020-06-20] MEDS: Albuterol/Ipratropium 3.0-0.5 MG/3 ML Neb Soln NEB SCH ×4 (07:32→19:33)
[2020-06-20] MEDS: Ferrous Sulfate 325 MG Tab PO SCH (07:33)
[2020-06-20] MEDS: Fludrocortisone 0.1 MG Tab PO SCH ×2 (07:33→19:33)
[2020-06-20] MEDS: Citalopram 20 MG Tab PO SCH (07:33)
[2020-06-20] MEDS: Potassium Chloride 20 MEQ Tab.ER PO SCH ×4 (07:33→19:33)
[2020-06-20] MEDS: Furosemide 20 MG Tab PO SCH ×2 (07:33→17:03)
[2020-06-20] MEDS: Cyanocobalamin (Vitamin B12) 1,000 MCG Tab PO SCH (07:34)
[2020-06-20] MEDS: Calcium Carbonate 750 MG Tab.Chew PO SCH (07:34)
[2020-06-20] MEDS: Niacin 500 MG Tab PO SCH ×2 (07:34→17:03)
[2020-06-20] MEDS: Cholecalciferol (Vitamin D3) 25 MCG Tab PO SCH (07:34)
[2020-06-20] MEDS: Acetaminophen 325 MG Tab PO PRN ×3 (07:35→19:34)
[2020-06-20] MEDS: Ibuprofen 600 MG Tab PO PRN (11:06)
[2020-06-20] MEDS: LEVOTHYROXINE SODIUM 137 MCG PO SCH (19:34)
[2020-06-20] MEDS: Simvastatin 10 MG Tab PO SCH (19:34)
[2020-06-20] MEDS: BUPROPION 300 MG PO SCH (19:34)
[2020-06-20] MEDS: Menthol/Methyl Salicylate 85 GM Tube TOP PRN (19:36)
[2020-06-21] MEDS: Albuterol/Ipratropium 3.0-0.5 MG/3 ML Neb Soln NEB SCH ×4 (07:43→19:34)
[2020-06-21] MEDS: Ferrous Sulfate 325 MG Tab PO SCH (07:43)
[2020-06-21] MEDS: Citalopram 20 MG Tab PO SCH (07:43)
[2020-06-21] MEDS: Fludrocortisone 0.1 MG Tab PO SCH ×2 (07:44→19:34)
[2020-06-21] MEDS: Potassium Chloride 20 MEQ Tab.ER PO SCH ×4 (07:44→19:34)
[2020-06-21] MEDS: Niacin 500 MG Tab PO SCH ×2 (07:44→17:05)
[2020-06-21] MEDS: Furosemide 20 MG Tab PO SCH ×2 (07:44→17:05)
[2020-06-21] MEDS: Acetaminophen 325 MG Tab PO PRN ×3 (07:45→19:35)
[2020-06-21] MEDS: Calcium Carbonate 750 MG Tab.Chew PO SCH (07:45)
[2020-06-21] MEDS: Cyanocobalamin (Vitamin B12) 1,000 MCG Tab PO SCH (07:45)
[2020-06-21] MEDS: Cholecalciferol (Vitamin D3) 25 MCG Tab PO SCH (07:45)
[2020-06-21] MEDS: Aluminum Hydroxide/Magnesium Hydroxide/Simethicone Susp 30 ML Cup PO PRN (08:51)
[2020-06-21] MEDS: Ibuprofen 600 MG Tab PO PRN (11:16)
[2020-06-21] MEDS: LEVOTHYROXINE SODIUM 137 MCG PO SCH (19:35)
[2020-06-21] MEDS: BUPROPION 300 MG PO SCH (19:35)
[2020-06-21] MEDS: Simvastatin 10 MG Tab PO SCH (19:35)
[2020-06-21] MEDS: Menthol/Methyl Salicylate 85 GM Tube TOP PRN (19:36)
[2020-06-22] MEDS: Ibuprofen 600 MG Tab PO PRN ×2 (04:59→12:12)
[2020-06-22] MEDS: Menthol/Methyl Salicylate 85 GM Tube TOP PRN (05:00)
[2020-06-22] MEDS: Citalopram 20 MG Tab PO SCH (07:31)
[2020-06-22] MEDS: Furosemide 20 MG Tab PO SCH ×2 (07:32→18:02)
[2020-06-22] MEDS: Potassium Chloride 20 MEQ Tab.ER PO SCH ×4 (07:32→19:37)
[2020-06-22] MEDS: Fludrocortisone 0.1 MG Tab PO SCH ×2 (07:32→19:37)
[2020-06-22] MEDS: Niacin 500 MG Tab PO SCH ×2 (07:33→18:02)
[2020-06-22] MEDS: Calcium Carbonate 750 MG Tab.Chew PO SCH (07:33)
[2020-06-22] MEDS: Cyanocobalamin (Vitamin B12) 1,000 MCG Tab PO SCH (07:34)
[2020-06-22] MEDS: Cholecalciferol (Vitamin D3) 25 MCG Tab PO SCH (07:34)
[2020-06-22] MEDS: Albuterol/Ipratropium 3.0-0.5 MG/3 ML Neb Soln NEB SCH ×4 (07:35→19:37)
[2020-06-22] MEDS: Ferrous Sulfate 325 MG Tab PO SCH (07:35)
[2020-06-22] MEDS: Acetaminophen 325 MG Tab PO PRN ×2 (07:40→16:09)
[2020-06-22] MEDS: BUPROPION 300 MG PO SCH (19:38)
[2020-06-22] MEDS: LEVOTHYROXINE SODIUM 137 MCG PO SCH (19:38)
[2020-06-22] MEDS: Simvastatin 10 MG Tab PO SCH (19:39)
[2020-06-23] MEDS: Furosemide 20 MG Tab PO SCH ×2 (08:08→17:15)
[2020-06-23] MEDS: Albuterol/Ipratropium 3.0-0.5 MG/3 ML Neb Soln NEB SCH ×4 (08:08→19:22)
[2020-06-23] MEDS: Fludrocortisone 0.1 MG Tab PO SCH ×2 (08:08→19:20)
[2020-06-23] MEDS: Citalopram 20 MG Tab PO SCH (08:08)
[2020-06-23] MEDS: Potassium Chloride 20 MEQ Tab.ER PO SCH ×4 (08:08→19:20)
[2020-06-23] MEDS: Calcium Carbonate 750 MG Tab.Chew PO SCH (08:09)
[2020-06-23] MEDS: Niacin 500 MG Tab PO SCH ×2 (08:09→17:15)
[2020-06-23] MEDS: Ferrous Sulfate 325 MG Tab PO SCH (08:09)
[2020-06-23] MEDS: Cyanocobalamin (Vitamin B12) 1,000 MCG Tab PO SCH (08:10)
[2020-06-23] MEDS: Cholecalciferol (Vitamin D3) 25 MCG Tab PO SCH (08:10)
[2020-06-23] MEDS: Simvastatin 10 MG Tab PO SCH (19:21)
[2020-06-23] MEDS: LEVOTHYROXINE SODIUM 137 MCG PO SCH (19:21)
[2020-06-23] MEDS: BUPROPION 300 MG PO SCH (19:21)
[2020-06-23] MEDS: Menthol/Methyl Salicylate 85 GM Tube TOP PRN (19:27)
[2020-06-24] MEDS: Ibuprofen 600 MG Tab PO PRN ×2 (08:24→17:06)
[2020-06-24] MEDS: Albuterol/Ipratropium 3.0-0.5 MG/3 ML Neb Soln NEB SCH ×4 (08:24→19:34)
[2020-06-24] MEDS: Citalopram 20 MG Tab PO SCH (08:25)
[2020-06-24] MEDS: Fludrocortisone 0.1 MG Tab PO SCH ×2 (08:25→19:33)
[2020-06-24] MEDS: Furosemide 20 MG Tab PO SCH ×2 (08:25→17:05)
[2020-06-24] MEDS: Potassium Chloride 20 MEQ Tab.ER PO SCH ×4 (08:25→19:33)
[2020-06-24] MEDS: Niacin 500 MG Tab PO SCH ×2 (08:26→17:05)
[2020-06-24] MEDS: Ferrous Sulfate 325 MG Tab PO SCH (08:26)
[2020-06-24] MEDS: Calcium Carbonate 750 MG Tab.Chew PO SCH (08:28)
[2020-06-24] MEDS: Cholecalciferol (Vitamin D3) 25 MCG Tab PO SCH (08:29)
[2020-06-24] MEDS: Cyanocobalamin (Vitamin B12) 1,000 MCG Tab PO SCH (08:29)
[2020-06-24] MEDS: LEVOTHYROXINE SODIUM 137 MCG PO SCH (19:33)
[2020-06-24] MEDS: BUPROPION 300 MG PO SCH (19:34)
[2020-06-24] MEDS: Simvastatin 10 MG Tab PO SCH (19:34)
[2020-06-24] MEDS: Menthol/Methyl Salicylate 85 GM Tube TOP PRN (19:35)
[2020-06-25] MEDS: Potassium Chloride 20 MEQ Tab.ER PO SCH ×4 (08:24→19:29)
[2020-06-25] MEDS: Fludrocortisone 0.1 MG Tab PO SCH ×2 (08:25→19:29)
[2020-06-25] MEDS: Citalopram 20 MG Tab PO SCH (08:25)
[2020-06-25] MEDS: Furosemide 20 MG Tab PO SCH ×2 (08:25→17:59)
[2020-06-25] MEDS: Menthol/Methyl Salicylate 85 GM Tube TOP PRN ×2 (08:26→19:32)
[2020-06-25] MEDS: Ibuprofen 600 MG Tab PO PRN (08:26)
[2020-06-25] MEDS: Albuterol/Ipratropium 3.0-0.5 MG/3 ML Neb Soln NEB SCH ×4 (08:27→19:30)
[2020-06-25] MEDS: Ferrous Sulfate 325 MG Tab PO SCH (08:28)
[2020-06-25] MEDS: Niacin 500 MG Tab PO SCH ×2 (08:28→18:00)
[2020-06-25] MEDS: Calcium Carbonate 750 MG Tab.Chew PO SCH (08:29)
[2020-06-25] MEDS: Cholecalciferol (Vitamin D3) 25 MCG Tab PO SCH (08:30)
[2020-06-25] MEDS: Cyanocobalamin (Vitamin B12) 1,000 MCG Tab PO SCH (08:30)
[2020-06-25] MEDS: Acetaminophen 325 MG Tab PO PRN (12:43)
[2020-06-25] MEDS: LEVOTHYROXINE SODIUM 137 MCG PO SCH (19:29)
[2020-06-25] MEDS: BUPROPION 300 MG PO SCH (19:29)
[2020-06-25] MEDS: Simvastatin 10 MG Tab PO SCH (19:30)
[2020-06-26] MEDS: Albuterol/Ipratropium 3.0-0.5 MG/3 ML Neb Soln NEB SCH ×4 (07:51→19:53)
[2020-06-26] MEDS: Citalopram 20 MG Tab PO SCH (07:51)
[2020-06-26] MEDS: Ferrous Sulfate 325 MG Tab PO SCH (07:52)
[2020-06-26] MEDS: Potassium Chloride 20 MEQ Tab.ER PO SCH ×4 (07:52→19:54)
[2020-06-26] MEDS: Fludrocortisone 0.1 MG Tab PO SCH ×2 (07:52→19:54)
[2020-06-26] MEDS: Niacin 500 MG Tab PO SCH ×2 (07:53→17:13)
[2020-06-26] MEDS: Calcium Carbonate 750 MG Tab.Chew PO SCH (07:53)
[2020-06-26] MEDS: Furosemide 20 MG Tab PO SCH ×2 (07:53→17:13)
[2020-06-26] MEDS: Cyanocobalamin (Vitamin B12) 1,000 MCG Tab PO SCH (07:54)
[2020-06-26] MEDS: Cholecalciferol (Vitamin D3) 25 MCG Tab PO SCH (07:54)
[2020-06-26] MEDS: Acetaminophen 325 MG Tab PO PRN ×2 (07:55→15:14)
[2020-06-26] MEDS: Ibuprofen 600 MG Tab PO PRN (11:19)
[2020-06-26] MEDS: LEVOTHYROXINE SODIUM 137 MCG PO SCH (19:54)
[2020-06-26] MEDS: Simvastatin 10 MG Tab PO SCH (19:55)
[2020-06-26] MEDS: BUPROPION 300 MG PO SCH (19:55)
[2020-06-26] MEDS: Menthol/Methyl Salicylate 85 GM Tube TOP PRN (20:24)
[2020-06-27] MEDS: Albuterol/Ipratropium 3.0-0.5 MG/3 ML Neb Soln NEB SCH ×4 (08:06→19:24)
[2020-06-27] MEDS: Potassium Chloride 20 MEQ Tab.ER PO SCH ×4 (08:07→19:22)
[2020-06-27] MEDS: Citalopram 20 MG Tab PO SCH (08:07)
[2020-06-27] MEDS: Fludrocortisone 0.1 MG Tab PO SCH ×2 (08:07→19:22)
[2020-06-27] MEDS: Furosemide 20 MG Tab PO SCH ×2 (08:09→17:07)
[2020-06-27] MEDS: Ferrous Sulfate 325 MG Tab PO SCH (08:09)
[2020-06-27] MEDS: Calcium Carbonate 750 MG Tab.Chew PO SCH (08:10)
[2020-06-27] MEDS: Niacin 500 MG Tab PO SCH ×2 (08:10→17:07)
[2020-06-27] MEDS: Cholecalciferol (Vitamin D3) 25 MCG Tab PO SCH (08:11)
[2020-06-27] MEDS: Cyanocobalamin (Vitamin B12) 1,000 MCG Tab PO SCH (08:11)
[2020-06-27] MEDS: Acetaminophen 325 MG Tab PO PRN (08:12)
[2020-06-27] MEDS: Aluminum Hydroxide/Magnesium Hydroxide/Simethicone Susp 30 ML Cup PO PRN (11:08)
[2020-06-27] MEDS: Simvastatin 10 MG Tab PO SCH (19:22)
[2020-06-27] MEDS: BUPROPION 300 MG PO SCH (19:24)
[2020-06-27] MEDS: LEVOTHYROXINE SODIUM 137 MCG PO SCH (19:24)
[2020-06-27] MEDS: Menthol/Methyl Salicylate 85 GM Tube TOP PRN (19:25)
[2020-06-28] MEDS: Citalopram 20 MG Tab PO SCH (08:16)
[2020-06-28] MEDS: Fludrocortisone 0.1 MG Tab PO SCH ×2 (08:17→19:26)
[2020-06-28] MEDS: Potassium Chloride 20 MEQ Tab.ER PO SCH ×4 (08:17→19:26)
[2020-06-28] MEDS: Furosemide 20 MG Tab PO SCH ×2 (08:17→17:06)
[2020-06-28] MEDS: Albuterol/Ipratropium 3.0-0.5 MG/3 ML Neb Soln NEB SCH ×4 (08:18→19:25)
[2020-06-28] MEDS: Ferrous Sulfate 325 MG Tab PO SCH (08:18)
[2020-06-28] MEDS: Niacin 500 MG Tab PO SCH ×2 (08:19→17:07)
[2020-06-28] MEDS: Calcium Carbonate 750 MG Tab.Chew PO SCH (08:19)
[2020-06-28] MEDS: Cholecalciferol (Vitamin D3) 25 MCG Tab PO SCH (08:20)
[2020-06-28] MEDS: Cyanocobalamin (Vitamin B12) 1,000 MCG Tab PO SCH (08:21)
[2020-06-28] MEDS: Acetaminophen 325 MG Tab PO PRN ×2 (08:26→15:08)
[2020-06-28] MEDS: Simvastatin 10 MG Tab PO SCH (19:26)
[2020-06-28] MEDS: BUPROPION 300 MG PO SCH (19:26)
[2020-06-28] MEDS: LEVOTHYROXINE SODIUM 137 MCG PO SCH (19:26)
[2020-06-28] MEDS: Menthol/Methyl Salicylate 85 GM Tube TOP PRN (19:29)
[2020-06-29] MEDS: Potassium Chloride 20 MEQ Tab.ER PO SCH ×4 (08:15→19:00)
[2020-06-29] MEDS: Citalopram 20 MG Tab PO SCH (08:15)
[2020-06-29] MEDS: Fludrocortisone 0.1 MG Tab PO SCH ×2 (08:15→19:00)
[2020-06-29] MEDS: Furosemide 20 MG Tab PO SCH ×2 (08:15→17:39)
[2020-06-29] MEDS: Calcium Carbonate 750 MG Tab.Chew PO SCH (08:16)
[2020-06-29] MEDS: Niacin 500 MG Tab PO SCH ×2 (08:16→17:39)
[2020-06-29] MEDS: Ferrous Sulfate 325 MG Tab PO SCH (08:16)
[2020-06-29] MEDS: Cholecalciferol (Vitamin D3) 25 MCG Tab PO SCH (08:17)
[2020-06-29] MEDS: Albuterol/Ipratropium 3.0-0.5 MG/3 ML Neb Soln NEB SCH ×4 (08:17→19:00)
[2020-06-29] MEDS: Cyanocobalamin (Vitamin B12) 1,000 MCG Tab PO SCH (08:18)
[2020-06-29] MEDS: Simvastatin 10 MG Tab PO SCH (19:00)
[2020-06-29] MEDS: LEVOTHYROXINE SODIUM 137 MCG PO SCH (19:01)
[2020-06-29] MEDS: BUPROPION 300 MG PO SCH (19:01)
[2020-06-29] MEDS: Menthol/Methyl Salicylate 85 GM Tube TOP PRN (19:02)
[2020-06-30] MEDS: Potassium Chloride 20 MEQ Tab.ER PO SCH ×4 (08:07→19:52)
[2020-06-30] MEDS: Fludrocortisone 0.1 MG Tab PO SCH ×2 (08:07→19:52)
[2020-06-30] MEDS: Furosemide 20 MG Tab PO SCH ×2 (08:07→17:49)
[2020-06-30] MEDS: Citalopram 20 MG Tab PO SCH (08:07)
[2020-06-30] MEDS: Cholecalciferol (Vitamin D3) 25 MCG Tab PO SCH (08:09)
[2020-06-30] MEDS: Calcium Carbonate 750 MG Tab.Chew PO SCH (08:09)
[2020-06-30] MEDS: Cyanocobalamin (Vitamin B12) 1,000 MCG Tab PO SCH (08:09)
[2020-06-30] MEDS: Albuterol/Ipratropium 3.0-0.5 MG/3 ML Neb Soln NEB SCH ×4 (08:10→19:51)
[2020-06-30] MEDS: Ferrous Sulfate 325 MG Tab PO SCH (08:10)
[2020-06-30] MEDS: Niacin 500 MG Tab PO SCH ×2 (08:10→17:49)
[2020-06-30] MEDS: Acetaminophen 325 MG Tab PO PRN ×2 (08:11→12:21)
[2020-06-30] MEDS: Ibuprofen 600 MG Tab PO PRN (09:24)
[2020-06-30] MEDS: Menthol/Methyl Salicylate 85 GM Tube TOP PRN ×2 (09:26→19:54)
--- NOTE | 2020-06-30 10:50 | PCM.PN ---
- General Info Date of Service: 06/30/20 Admission Dx/Problem (Free Text): 1. Myotonic dystrophy with secondary weakness 2. CHF 3. O2 dependent COPD Functional Status: Reports: Pain Controlled, Tolerating Diet, Ambulating (With assist), Urinating, New Symptoms (Mild nonspecific generalized myalgias today), Incentive Spirometry Pain Score: 5 - Review of Systems General: Reports: Weakness (Stable chronic), Fatigue (Stable chronic). Denies: Fever, Malaise, Chills, Night Sweats, Appetite (Adequate) HEENT: Reports: No Symptoms Pulmonary: Reports: No Symptoms. Denies: Shortness of Breath, Pleuritic Chest Pain, Cough, Wheezing Cardiovascular: Reports: Edema (Stable dependent). Denies: Chest Pain, Palpitations, Orthopnea, Lightheadedness Gastrointestinal: Reports: Constipation (Stable chronic). Denies: Abdominal Pain Genitourinary: Reports: No Symptoms Musculoskeletal: Reports: Other (Nonspecific generalized arthralgias today) Skin: Reports: No Symptoms. Denies: Diaphoresis, Bruising Neurological: Reports: Pre-Existing Deficit, Difficulty Walking, Weakness (Stable chronic) Psychiatric: Reports: Depression (Mild), Anxiety (Mild). Denies: Agitation, Hallucinations, Homicidal Ideation - Patient Data Vitals - Most Recent: Last Vital Signs Temp 35.9 C L 06/30/20 08:00 Pulse 65 06/27/20 08:00 Resp 16 06/27/20 08:00 BP 109/73 06/27/20 08:00 Pulse Ox 98 06/27/20 08:00 Weight - Most Recent: 84.005 kg (Additional intentional 4.3 kg weight loss) I&O - Last 24 Hours: Intake & Output 06/29/20 06/30/20 06/30/20 22:59 06:59 14:59 Intake Total 357 760 Balance 357 760 Imaging Impressions - Last 24 Hours: None Lab Results Last 24 Hours: None Sandor Results Last 24 Hours: None Med Orders - Current: Current Medications Acetaminophen (Tylenol) 650 mg PO Q4H PRN PRN Reason: Pain Last Admin: 06/30/20 08:11 Dose: 650 mg Documented by: Al Hydroxide/Mg Hydroxide (Mag-Al Plus) 30 ml PO Q4H PRN PRN Reason: Indigestion Last Admin: 06/27/20 11:08 Dose: 30 ml Documented by: Albuterol/Ipratropium (Duoneb 3.0-0.5 Mg/3 Ml) 3 ml NEB Q4HRRT PRN PRN Reason: Dyspnea Albuterol/Ipratropium (Duoneb 3.0-0.5 Mg/3 Ml) 3 ml NEB QIDRT [facility] Last Admin: 06/30/20 08:10 Dose: 3 ml Documented by: Bisacodyl (Dulcolax) 5 mg PO DAILY PRN PRN Reason: Constipation Last Admin: 05/30/20 18:27 Dose: 5 mg Documented by: Calcium Carbonate/Glycine (Tums Extra Strength) 1,500 mg PO DAILY [facility] Last Admin: 06/30/20 08:09 Dose: 1,500 mg Documented by: Cholecalciferol (Vitamin D3) 25 mcg PO DAILY [facility] Last Admin: 06/30/20 08:09 Dose: 25 mcg Documented by: Citalopram [facility]bromide (Celexa) [facility] [place] Admin: 06/30/20 08:07 Dose: 20 mg Documented by: Cyanocobalamin (Vitamin B12) 1,000 mcg PO QAM [facility] Last Admin: 06/30/20 08:09 Dose: 1,000 mcg Documented by: Ferrous Sulfate (Ferrous Sulfate) 325 mg PO WITHBREAKFAST [facility] Last Admin: 06/30/20 08:10 Dose: 325 mg Documented by: Fludrocortisone Acetate (Florinef) 0.1 mg PO BEDTIME [facility] Last Admin: 06/29/20 19:00 Dose: 0.1 mg Documented by: Fludrocortisone Acetate (Florinef) 0.2 mg PO QAM [facility] Last Admin: 06/30/20 08:07 Dose: 0.2 mg Documented by: Furosemide (Lasix) 20 mg PO BID [facility] Last Admin: 06/30/20 08:07 Dose: 20 mg Documented by: Guaifenesin/Dextromethorphan (Robitussin Dm) 10 ml PO Q4H PRN PRN Reason: Cough Ibuprofen (Motrin) 600 mg PO Q6H PRN PRN Reason: Breakthrough Pain Last Admin: 06/30/20 09:24 Dose: 600 mg Documented by: Magnesium Hydroxide (Milk Of Magnesia) 30 ml PO DAILY PRN PRN Reason: Constipation Last Admin: 06/07/20 11:33 Dose: 30 ml Documented by: Methyl Salicylate (Icy Hot Cream) 1 gm TOP QID PRN PRN Reason: Pain (mild 1-3) Last Admin: 06/30/20 09:26 Dose: 1 applic Documented by: Niacin (Niacin) 500 mg PO BID [facility] Last Admin: 06/30/20 08:10 Dose: 500 mg Documented by: Levothyroxine Sodium (137 Mcg Tablets) 137 mcg PO BEDTIME [facility] Last Admin: 06/29/20 19:01 Dose: 137 mcg Documented by: Bupropion Xl 300mg (Tablets) 1 each PO BEDTIME [facility] Last Admin: 06/29/20 19:01 Dose: 1 each Documented by: Potassium Chloride (Klor-Con M20) 40 meq PO QID [facility] Last Admin: 06/30/20 08:07 Dose: 40 meq Documented by: Simvastatin (Zocor) 10 mg PO BEDTIME [facility] Last Admin: 06/29/20 19:00 Dose: 10 mg Documented by: - Exam Quality Assessment: Supplemental Oxygen, DVT Prophylaxis. No: Urine Catheter, Skin Breakdown, Restraints General: Alert, Oriented, Cooperative, No Acute Distress HEENT: Pupils Reactive, EOMI, Mucous Membr. Moist/[place]. No: Scleral Icterus Neck: Supple, Trachea Midline, No JVD, No Thyromegaly, +2 Carotid Pulse wo Bruit. No: Lymphadenopathy Lungs: Rales (Stable mild bilateral basilar) Cardiovascular: Regular Rate, Regular Rhythm, No Murmurs. No: Gallops, Rubs GI/Abdominal Exam: Normal Bowel Sounds, Soft, Non-Tender, No Organomegaly, No Distention, No Abnormal Bruit, No Mass, Other (Obese). No: Guarding (Female) Exam: Deferred Back Exam: Normal Inspection, Full Range of Motion. No: CVA Tenderness (L), CVA Tenderness (R), Muscle Spasm Extremities: Normal Range of Motion, Non-Tender, Pedal Edema (Stable lymphedema of the lower extremities with Xavier wrap compression dressings in place). No: Lurdes's Sign Peripheral Pulses: 2+: Radial (L), Radial (R) Skin: Warm, Dry, Intact. No: Ecchymosis Neurological: No New Focal Deficit, Other (Stable chronic generalized weakness) Psy/Mental Status: Alert, Anxious (Mild), Depressed (Mild). No: Agitated, Hallucinations, Withdrawal Symptoms Sepsis Event Note - Evaluation Sepsis Screening Result: No Definite Risk - Focused Exam Vital Signs: Vital Signs Temp 06/30/20 08:00 35.9 C L Date Exam was Performed: 06/30/20 Time Exam was Performed: 10:45 - Problem List & Annotations (1) Steinert myotonic dystrophy syndrome SNOMED Code(s): 13853720 Code(s): G71.11 - MYOTONIC MUSCULAR DYSTROPHY Status: Chronic Priority: Medium Current Visit: Yes Annotation/Comment:: Stable by history and today's exam. Physical therapy in effect. Continue current medical therapy. (2) CHF, Congestive heart failure SNOMED Code(s): 27446914 Code(s): I50.9 - HEART FAILURE, UNSPECIFIED Status: Chronic Priority: Medium Current Visit: Yes Annotation/Comment:: No recent chest pain or anginal type symptoms. Note previous progressive nonspecific bilateral lower lobe atelectasis versus nonspecific changes, right greater than left, with CT scan of the chest performed on 12/29/19. Chest x-ray, PA and lateral, on 04/25/20 showed stable bilateral lower lobe atelectasis with no significant evidence of CHF. Previous CT scan in December as above did show evidence of atelectasis and mild pleural effusions consistent with CHF. No significant CHF by clinical exam today. Yearly blood work, EKG, chest x-ray, etc. were conducted on 04/25/20 and were reviewed by me once again today. Improved/stable lateral wall cardiac ischemia by EKG since April 2019 with resolved first-degree AV block and stable complete bifascicular bundle-branch block. Stable dependent edema with the patient intentionally losing an additional 4.3 kg with a 13.7 kg total intension al weight loss in the last 8 months. Note previous dietary noncompliance, however much improved. Previous discontinuation of high protein Glucerna supplements as snacks secondary to her previous weight gain. Dietary consultation in effect. Activity level is overall low. An echocardiogram had also been performed on 12/28/19 with excellent ejection fraction of 5060 percent.The patient's CODE STATUS was previously addressed per request from the nursing staff with the patient wishing to continue to be a FULL CODE. Continue to observe closely. Note previous history of PVCs, complete right bundle branch block/bifascicular bundle-branch block, first-degree AV block, severe dyslipidemia hypokalemia, hypophosphatemia, and hyponatremia. Mild persistent hypertriglyceridemia with borderline hypernatremia on 04/25. Note normal magnesium on the potassium, and phosphate levels on 04/25. Continue to observe for now with no further change in medical therapy. Further cardiology workup and/or consultation depending on her clinical course. Note Increase of her Lasix therapy, etc. on 12/21 with overall good clinical results. Blood work will be repeated in 2 months at time of recertification. (3) Tardive dyskinesia SNOMED Code(s): 887932907 Code(s): G24.01 - DRUG INDUCED SUBACUTE DYSKINESIA Status: Chronic Priority: Medium Current Visit: Yes Annotation/Comment:: Stable by history. Her perioral tardive dyskinesia actually increased after discontinuation of previous chronic Reglan therapy with no other aggravating medications noted. Neurological status is otherwise stable. Note that patient does have complete dentures uppers and lowers, which does tend to aggravate her problem. No significant clinical relevance at this time with no change in medical therapy for now. (4) COPD (chronic obstructive pulmonary disease) SNOMED Code(s): 80940952 Code(s): J44.9 - CHRONIC OBSTRUCTIVE PULMONARY DISEASE, UNSPECIFIED Status: Chronic Priority: Medium Current Visit: Yes Qualifiers: COPD type: emphysema Emphysema type: panlobular Qualified Code(s): J43.1 - Panlobular emphysema Annotation/Comment:: As above. O2 dependent COPD stable by history with no bronchitic symptoms at this time. Continue current medical therapy. Note chronic bilateral lower lobe atelectasis with incentive spirometry and current O2 therapy at 3 L/m by nasal cannula. No evidence of pneumonia or significant bronchitis despite chest x-ray report on 04/25/20. Patient does have a previous history of distant postoperative respiratory distress, although no complications after previous dental surgery. (5) Hyperlipidemia SNOMED Code(s): 47716191 Code(s): E78.5 - HYPERLIPIDEMIA, UNSPECIFIED Status: Chronic Priority: Medium Current Visit: Yes Annotation/Comment:: As above. Previous history of severe dyslipidemia with aggressive medical therapy at this time. Dietary compliance has improved with intentional weight loss as above. No change in medical therapy for now with previous history of CPK elevation. (6) Hypothyroidism SNOMED Code(s): 45597885 Code(s): E03.9 - HYPOTHYROIDISM, UNSPECIFIED Status: Chronic Priority: Medium Current Visit: Yes Annotation/Comment:: TSH normal on 04/25/20. No other thyroid type symptoms. (7) Mixed anxiety and depressive disorder SNOMED Code(s): 669084336 Code(s): F41.8 - OTHER SPECIFIED ANXIETY DISORDERS Status: Chronic Priority: Medium Current Visit: Yes Annotation/Comment:: Stable by history from the patient and nursing staff, although mild persistent anxious and depressive affect today. Observe for now.. Previous worsening of her anxiety depression disorder with Wellbutrin SR therapy increased on 12/21/19. By my clinical evaluation her symptoms have improved since that time, although she still needs to be watched closely by nursing staff, etc.. Patient is still relatively active with physical therapy, however she is still often alone in her room. The patient was once again encouraged to become more active with social activities, etc. with nursing staff also encouraged to help the patient be more interactive. (8) Osteoarthritis SNOMED Code(s): 972518118 Code(s): M19.90 - UNSPECIFIED OSTEOARTHRITIS, UNSPECIFIED SITE Status: Chronic Priority: Medium Current Visit: Yes Annotation/Comment:: Nonspecific generalized arthralgias today with muscle rub, etc. given this morning. Observe for now. Note previous discontinuation of Ultram. PT in effect as above. Note status post bilateral ankle ORIF secondary to fractures. Previous recurrent falls in February 2019 have improved with no recent significant falls or injuries. - Problem List Review Problem List Initiated/Reviewed/Updated: Yes - Assessment Assessment:: As above. - Plan Plan:: As above. Extensive precautions were given to the patient, who is in agreement with the treatment plan. The patient will be recertified for an additional 60 days as chronic swing bed care required secondary to multiple health issues as above.
[2020-06-30] MEDS: Simvastatin 10 MG Tab PO SCH (19:53)
[2020-06-30] MEDS: LEVOTHYROXINE SODIUM 137 MCG PO SCH (19:53)
[2020-06-30] MEDS: BUPROPION 300 MG PO SCH (19:53)
[2020-07-01] MEDS: Citalopram 20 MG Tab PO SCH (08:29)
[2020-07-01] MEDS: Furosemide 20 MG Tab PO SCH ×2 (08:30→17:35)
[2020-07-01] MEDS: Fludrocortisone 0.1 MG Tab PO SCH ×2 (08:30→19:05)
[2020-07-01] MEDS: Potassium Chloride 20 MEQ Tab.ER PO SCH ×4 (08:30→19:05)
[2020-07-01] MEDS: Cyanocobalamin (Vitamin B12) 1,000 MCG Tab PO SCH (08:31)
[2020-07-01] MEDS: Cholecalciferol (Vitamin D3) 25 MCG Tab PO SCH (08:31)
[2020-07-01] MEDS: Ferrous Sulfate 325 MG Tab PO SCH (08:32)
[2020-07-01] MEDS: Albuterol/Ipratropium 3.0-0.5 MG/3 ML Neb Soln NEB SCH ×4 (08:32→19:04)
[2020-07-01] MEDS: Calcium Carbonate 750 MG Tab.Chew PO SCH (08:32)
[2020-07-01] MEDS: Acetaminophen 325 MG Tab PO PRN (08:33)
[2020-07-01] MEDS: Niacin 500 MG Tab PO SCH ×2 (08:33→17:35)
[2020-07-01] MEDS: Ibuprofen 600 MG Tab PO PRN (12:12)
[2020-07-01] MEDS: Aluminum Hydroxide/Magnesium Hydroxide/Simethicone Susp 30 ML Cup PO PRN (12:44)
[2020-07-01] MEDS: Simvastatin 10 MG Tab PO SCH (19:06)
[2020-07-01] MEDS: BUPROPION 300 MG PO SCH (19:06)
[2020-07-01] MEDS: LEVOTHYROXINE SODIUM 137 MCG PO SCH (19:06)
[2020-07-01] MEDS: Menthol/Methyl Salicylate 85 GM Tube TOP PRN (19:07)
[2020-07-02] MEDS: Furosemide 20 MG Tab PO SCH ×2 (08:04→17:49)
[2020-07-02] MEDS: Albuterol/Ipratropium 3.0-0.5 MG/3 ML Neb Soln NEB SCH ×4 (08:04→19:32)
[2020-07-02] MEDS: Potassium Chloride 20 MEQ Tab.ER PO SCH ×4 (08:04→19:37)
[2020-07-02] MEDS: Citalopram 20 MG Tab PO SCH (08:04)
[2020-07-02] MEDS: Fludrocortisone 0.1 MG Tab PO SCH ×2 (08:04→21:52)
[2020-07-02] MEDS: Ferrous Sulfate 325 MG Tab PO SCH (08:05)
[2020-07-02] MEDS: Niacin 500 MG Tab PO SCH ×2 (08:06→17:48)
[2020-07-02] MEDS: Calcium Carbonate 750 MG Tab.Chew PO SCH (08:07)
[2020-07-02] MEDS: Cyanocobalamin (Vitamin B12) 1,000 MCG Tab PO SCH (08:07)
[2020-07-02] MEDS: Acetaminophen 325 MG Tab PO PRN (08:08)
[2020-07-02] MEDS: Cholecalciferol (Vitamin D3) 25 MCG Tab PO SCH (08:08)
[2020-07-02] MEDS: Ibuprofen 600 MG Tab PO PRN ×2 (12:06→19:40)
[2020-07-02] MEDS: Menthol/Methyl Salicylate 85 GM Tube TOP PRN ×2 (13:01→19:39)
[2020-07-02] MEDS: LEVOTHYROXINE SODIUM 137 MCG PO SCH (19:37)
[2020-07-02] MEDS: Simvastatin 10 MG Tab PO SCH (19:38)
[2020-07-02] MEDS: BUPROPION 300 MG PO SCH (19:38)
[2020-07-03] MEDS: Potassium Chloride 20 MEQ Tab.ER PO SCH ×4 (08:41→19:31)
[2020-07-03] MEDS: Furosemide 20 MG Tab PO SCH ×2 (08:41→17:34)
[2020-07-03] MEDS: Aluminum Hydroxide/Magnesium Hydroxide/Simethicone Susp 30 ML Cup PO PRN (08:41)
[2020-07-03] MEDS: Fludrocortisone 0.1 MG Tab PO SCH ×2 (08:44→19:31)
[2020-07-03] MEDS: Ibuprofen 600 MG Tab PO PRN ×2 (08:45→17:34)
[2020-07-03] MEDS: Albuterol/Ipratropium 3.0-0.5 MG/3 ML Neb Soln NEB SCH ×4 (08:45→19:31)
[2020-07-03] MEDS: Citalopram 20 MG Tab PO SCH (08:45)
[2020-07-03] MEDS: Ferrous Sulfate 325 MG Tab PO SCH (08:46)
[2020-07-03] MEDS: Niacin 500 MG Tab PO SCH ×2 (08:46→17:34)
[2020-07-03] MEDS: Calcium Carbonate 750 MG Tab.Chew PO SCH (08:47)
[2020-07-03] MEDS: Cyanocobalamin (Vitamin B12) 1,000 MCG Tab PO SCH (08:47)
[2020-07-03] MEDS: Cholecalciferol (Vitamin D3) 25 MCG Tab PO SCH (08:47)
[2020-07-03] MEDS: BUPROPION 300 MG PO SCH (19:32)
[2020-07-03] MEDS: LEVOTHYROXINE SODIUM 137 MCG PO SCH (19:32)
[2020-07-03] MEDS: Simvastatin 10 MG Tab PO SCH (19:32)
[2020-07-03] MEDS: Menthol/Methyl Salicylate 85 GM Tube TOP PRN (19:33)
[2020-07-03] MEDS: Acetaminophen 325 MG Tab PO PRN (21:35)
[2020-07-04] MEDS: Ibuprofen 600 MG Tab PO PRN ×2 (03:45→11:06)
[2020-07-04] MEDS: Menthol/Methyl Salicylate 85 GM Tube TOP PRN ×2 (03:46→19:29)
[2020-07-04] MEDS: Potassium Chloride 20 MEQ Tab.ER PO SCH ×4 (08:02→19:28)
[2020-07-04] MEDS: Citalopram 20 MG Tab PO SCH (08:03)
[2020-07-04] MEDS: Fludrocortisone 0.1 MG Tab PO SCH ×2 (08:03→19:28)
[2020-07-04] MEDS: Furosemide 20 MG Tab PO SCH ×2 (08:03→17:33)
[2020-07-04] MEDS: Ferrous Sulfate 325 MG Tab PO SCH (08:04)
[2020-07-04] MEDS: Albuterol/Ipratropium 3.0-0.5 MG/3 ML Neb Soln NEB SCH ×4 (08:04→19:28)
[2020-07-04] MEDS: Niacin 500 MG Tab PO SCH ×2 (08:04→17:34)
[2020-07-04] MEDS: Calcium Carbonate 750 MG Tab.Chew PO SCH (08:05)
[2020-07-04] MEDS: Cyanocobalamin (Vitamin B12) 1,000 MCG Tab PO SCH (08:06)
[2020-07-04] MEDS: Cholecalciferol (Vitamin D3) 25 MCG Tab PO SCH (08:06)
[2020-07-04] MEDS: Acetaminophen 325 MG Tab PO PRN (08:07)
[2020-07-04] MEDS: LEVOTHYROXINE SODIUM 137 MCG PO SCH (19:28)
[2020-07-04] MEDS: Simvastatin 10 MG Tab PO SCH (19:28)
[2020-07-04] MEDS: BUPROPION 300 MG PO SCH (19:28)
[2020-07-05] MEDS: Albuterol/Ipratropium 3.0-0.5 MG/3 ML Neb Soln NEB SCH ×4 (08:33→19:33)
[2020-07-05] MEDS: Citalopram 20 MG Tab PO SCH (08:33)
[2020-07-05] MEDS: Ferrous Sulfate 325 MG Tab PO SCH (08:34)
[2020-07-05] MEDS: Fludrocortisone 0.1 MG Tab PO SCH ×2 (08:34→19:31)
[2020-07-05] MEDS: Potassium Chloride 20 MEQ Tab.ER PO SCH ×4 (08:34→19:32)
[2020-07-05] MEDS: Calcium Carbonate 750 MG Tab.Chew PO SCH (08:35)
[2020-07-05] MEDS: Furosemide 20 MG Tab PO SCH ×2 (08:35→17:51)
[2020-07-05] MEDS: Niacin 500 MG Tab PO SCH ×2 (08:35→17:51)
[2020-07-05] MEDS: Cyanocobalamin (Vitamin B12) 1,000 MCG Tab PO SCH (08:36)
[2020-07-05] MEDS: Ibuprofen 600 MG Tab PO PRN ×2 (08:37→17:55)
[2020-07-05] MEDS: Cholecalciferol (Vitamin D3) 25 MCG Tab PO SCH (08:37)
[2020-07-05] MEDS: Acetaminophen 325 MG Tab PO PRN (12:15)
[2020-07-05] MEDS: BUPROPION 300 MG PO SCH (19:32)
[2020-07-05] MEDS: LEVOTHYROXINE SODIUM 137 MCG PO SCH (19:32)
[2020-07-05] MEDS: Simvastatin 10 MG Tab PO SCH (19:32)
[2020-07-05] MEDS: Menthol/Methyl Salicylate 85 GM Tube TOP PRN (19:40)
[2020-07-06] MEDS: Citalopram 20 MG Tab PO SCH (07:25)
[2020-07-06] MEDS: Albuterol/Ipratropium 3.0-0.5 MG/3 ML Neb Soln NEB SCH ×4 (07:25→19:36)
[2020-07-06] MEDS: Ferrous Sulfate 325 MG Tab PO SCH (07:26)
[2020-07-06] MEDS: Potassium Chloride 20 MEQ Tab.ER PO SCH ×4 (07:26→19:37)
[2020-07-06] MEDS: Fludrocortisone 0.1 MG Tab PO SCH ×2 (07:26→19:37)
[2020-07-06] MEDS: Furosemide 20 MG Tab PO SCH ×2 (07:35→18:07)
[2020-07-06] MEDS: Calcium Carbonate 750 MG Tab.Chew PO SCH (07:36)
[2020-07-06] MEDS: Cyanocobalamin (Vitamin B12) 1,000 MCG Tab PO SCH (07:36)
[2020-07-06] MEDS: Niacin 500 MG Tab PO SCH ×2 (07:36→18:08)
[2020-07-06] MEDS: Cholecalciferol (Vitamin D3) 25 MCG Tab PO SCH (07:37)
[2020-07-06] MEDS: Ibuprofen 600 MG Tab PO PRN ×2 (07:38→18:08)
[2020-07-06] MEDS: Acetaminophen 325 MG Tab PO PRN (15:34)
[2020-07-06] MEDS: LEVOTHYROXINE SODIUM 137 MCG PO SCH (19:37)
[2020-07-06] MEDS: Simvastatin 10 MG Tab PO SCH (19:38)
[2020-07-06] MEDS: BUPROPION 300 MG PO SCH (19:38)
[2020-07-06] MEDS: Menthol/Methyl Salicylate 85 GM Tube TOP PRN (19:39)
[2020-07-07] MEDS: Citalopram 20 MG Tab PO SCH (07:42)
[2020-07-07] MEDS: Albuterol/Ipratropium 3.0-0.5 MG/3 ML Neb Soln NEB SCH ×4 (07:42→19:20)
[2020-07-07] MEDS: Potassium Chloride 20 MEQ Tab.ER PO SCH ×4 (07:43→19:20)
[2020-07-07] MEDS: Fludrocortisone 0.1 MG Tab PO SCH ×2 (07:43→19:20)
[2020-07-07] MEDS: Ferrous Sulfate 325 MG Tab PO SCH (07:43)
[2020-07-07] MEDS: Furosemide 20 MG Tab PO SCH ×2 (07:43→17:01)
[2020-07-07] MEDS: Calcium Carbonate 750 MG Tab.Chew PO SCH (07:44)
[2020-07-07] MEDS: Niacin 500 MG Tab PO SCH ×2 (07:44→17:01)
[2020-07-07] MEDS: Cyanocobalamin (Vitamin B12) 1,000 MCG Tab PO SCH (07:44)
[2020-07-07] MEDS: Cholecalciferol (Vitamin D3) 25 MCG Tab PO SCH (07:45)
[2020-07-07] MEDS: Ibuprofen 600 MG Tab PO PRN (07:49)
[2020-07-07] MEDS: Acetaminophen 325 MG Tab PO PRN (11:19)
[2020-07-07] MEDS: LEVOTHYROXINE SODIUM 137 MCG PO SCH (19:20)
[2020-07-07] MEDS: BUPROPION 300 MG PO SCH (19:20)
[2020-07-07] MEDS: Simvastatin 10 MG Tab PO SCH (19:21)
[2020-07-07] MEDS: Menthol/Methyl Salicylate 85 GM Tube TOP PRN (19:21)
[2020-07-08] MEDS: Acetaminophen 325 MG Tab PO PRN ×2 (07:40→19:57)
[2020-07-08] MEDS: Fludrocortisone 0.1 MG Tab PO SCH ×2 (07:41→19:49)
[2020-07-08] MEDS: Potassium Chloride 20 MEQ Tab.ER PO SCH ×4 (07:41→19:50)
[2020-07-08] MEDS: Albuterol/Ipratropium 3.0-0.5 MG/3 ML Neb Soln NEB SCH ×4 (07:41→19:49)
[2020-07-08] MEDS: Ferrous Sulfate 325 MG Tab PO SCH (07:41)
[2020-07-08] MEDS: Citalopram 20 MG Tab PO SCH (07:41)
[2020-07-08] MEDS: Calcium Carbonate 750 MG Tab.Chew PO SCH (07:42)
[2020-07-08] MEDS: Cyanocobalamin (Vitamin B12) 1,000 MCG Tab PO SCH (07:42)
[2020-07-08] MEDS: Furosemide 20 MG Tab PO SCH ×2 (07:42→17:18)
[2020-07-08] MEDS: Niacin 500 MG Tab PO SCH ×2 (07:42→17:18)
[2020-07-08] MEDS: Cholecalciferol (Vitamin D3) 25 MCG Tab PO SCH (07:43)
[2020-07-08] MEDS: Ibuprofen 600 MG Tab PO PRN (11:05)
[2020-07-08] MEDS: BUPROPION 300 MG PO SCH (19:51)
[2020-07-08] MEDS: LEVOTHYROXINE SODIUM 137 MCG PO SCH (19:51)
[2020-07-08] MEDS: Simvastatin 10 MG Tab PO SCH (19:52)
[2020-07-08] MEDS: Menthol/Methyl Salicylate 85 GM Tube TOP PRN (19:55)
[2020-07-09] MEDS: Albuterol/Ipratropium 3.0-0.5 MG/3 ML Neb Soln NEB SCH ×4 (07:44→19:24)
[2020-07-09] MEDS: Ferrous Sulfate 325 MG Tab PO SCH (07:44)
[2020-07-09] MEDS: Citalopram 20 MG Tab PO SCH (07:44)
[2020-07-09] MEDS: Fludrocortisone 0.1 MG Tab PO SCH ×2 (07:44→19:25)
[2020-07-09] MEDS: Potassium Chloride 20 MEQ Tab.ER PO SCH ×4 (07:45→19:25)
[2020-07-09] MEDS: Calcium Carbonate 750 MG Tab.Chew PO SCH (07:45)
[2020-07-09] MEDS: Furosemide 20 MG Tab PO SCH ×2 (07:45→17:02)
[2020-07-09] MEDS: Niacin 500 MG Tab PO SCH ×2 (07:45→17:03)
[2020-07-09] MEDS: Cholecalciferol (Vitamin D3) 25 MCG Tab PO SCH (07:46)
[2020-07-09] MEDS: Cyanocobalamin (Vitamin B12) 1,000 MCG Tab PO SCH (07:46)
[2020-07-09] MEDS: Acetaminophen 325 MG Tab PO PRN ×2 (07:49→15:09)
[2020-07-09] MEDS: Ibuprofen 600 MG Tab PO PRN (11:13)
[2020-07-09] MEDS: Simvastatin 10 MG Tab PO SCH (19:24)
[2020-07-09] MEDS: BUPROPION 300 MG PO SCH (19:24)
[2020-07-09] MEDS: LEVOTHYROXINE SODIUM 137 MCG PO SCH (19:24)
[2020-07-09] MEDS: Menthol/Methyl Salicylate 85 GM Tube TOP PRN (19:25)
[2020-07-10] MEDS: Fludrocortisone 0.1 MG Tab PO SCH ×2 (08:08→19:30)
[2020-07-10] MEDS: Potassium Chloride 20 MEQ Tab.ER PO SCH ×4 (08:08→19:30)
[2020-07-10] MEDS: Citalopram 20 MG Tab PO SCH (08:08)
[2020-07-10] MEDS: Furosemide 20 MG Tab PO SCH ×2 (08:08→17:25)
[2020-07-10] MEDS: Cyanocobalamin (Vitamin B12) 1,000 MCG Tab PO SCH (08:09)
[2020-07-10] MEDS: Cholecalciferol (Vitamin D3) 25 MCG Tab PO SCH (08:09)
[2020-07-10] MEDS: Albuterol/Ipratropium 3.0-0.5 MG/3 ML Neb Soln NEB SCH ×4 (08:10→19:28)
[2020-07-10] MEDS: Niacin 500 MG Tab PO SCH ×2 (08:10→17:26)
[2020-07-10] MEDS: Calcium Carbonate 750 MG Tab.Chew PO SCH (08:10)
[2020-07-10] MEDS: Ferrous Sulfate 325 MG Tab PO SCH (08:10)
[2020-07-10] MEDS: Acetaminophen 325 MG Tab PO PRN ×2 (08:11→16:03)
[2020-07-10] MEDS: Menthol/Methyl Salicylate 85 GM Tube TOP PRN ×2 (08:49→19:32)
[2020-07-10] MEDS: Ibuprofen 600 MG Tab PO PRN (12:11)
[2020-07-10] MEDS: Simvastatin 10 MG Tab PO SCH (19:29)
[2020-07-10] MEDS: LEVOTHYROXINE SODIUM 137 MCG PO SCH (19:31)
[2020-07-10] MEDS: BUPROPION 300 MG PO SCH (19:31)
[2020-07-11] MEDS: Citalopram 20 MG Tab PO SCH (07:49)
[2020-07-11] MEDS: Fludrocortisone 0.1 MG Tab PO SCH ×2 (07:49→19:27)
[2020-07-11] MEDS: Furosemide 20 MG Tab PO SCH ×2 (07:50→17:10)
[2020-07-11] MEDS: Potassium Chloride 20 MEQ Tab.ER PO SCH ×4 (07:50→19:29)
[2020-07-11] MEDS: Albuterol/Ipratropium 3.0-0.5 MG/3 ML Neb Soln NEB SCH ×4 (07:51→19:26)
[2020-07-11] MEDS: Ferrous Sulfate 325 MG Tab PO SCH (07:51)
[2020-07-11] MEDS: Niacin 500 MG Tab PO SCH ×2 (07:52→17:10)
[2020-07-11] MEDS: Calcium Carbonate 750 MG Tab.Chew PO SCH (07:52)
[2020-07-11] MEDS: Cyanocobalamin (Vitamin B12) 1,000 MCG Tab PO SCH (07:53)
[2020-07-11] MEDS: Cholecalciferol (Vitamin D3) 25 MCG Tab PO SCH (07:53)
[2020-07-11] MEDS: Acetaminophen 325 MG Tab PO PRN (07:54)
[2020-07-11] MEDS: Ibuprofen 600 MG Tab PO PRN ×2 (07:55→15:27)
[2020-07-11] MEDS: LEVOTHYROXINE SODIUM 137 MCG PO SCH (19:29)
[2020-07-11] MEDS: Simvastatin 10 MG Tab PO SCH (19:30)
[2020-07-11] MEDS: BUPROPION 300 MG PO SCH (19:30)
[2020-07-11] MEDS: Menthol/Methyl Salicylate 85 GM Tube TOP PRN (19:30)
[2020-07-12] MEDS: Citalopram 20 MG Tab PO SCH (08:20)
[2020-07-12] MEDS: Furosemide 20 MG Tab PO SCH ×2 (08:20→17:06)
[2020-07-12] MEDS: Fludrocortisone 0.1 MG Tab PO SCH ×2 (08:20→19:23)
[2020-07-12] MEDS: Potassium Chloride 20 MEQ Tab.ER PO SCH ×4 (08:20→19:24)
[2020-07-12] MEDS: Albuterol/Ipratropium 3.0-0.5 MG/3 ML Neb Soln NEB SCH ×4 (08:21→19:23)
[2020-07-12] MEDS: Ferrous Sulfate 325 MG Tab PO SCH (08:21)
[2020-07-12] MEDS: Cholecalciferol (Vitamin D3) 25 MCG Tab PO SCH (08:22)
[2020-07-12] MEDS: Niacin 500 MG Tab PO SCH ×2 (08:22→17:06)
[2020-07-12] MEDS: Calcium Carbonate 750 MG Tab.Chew PO SCH (08:22)
[2020-07-12] MEDS: Cyanocobalamin (Vitamin B12) 1,000 MCG Tab PO SCH (08:22)
[2020-07-12] MEDS: Ibuprofen 600 MG Tab PO PRN (08:23)
[2020-07-12] MEDS: LEVOTHYROXINE SODIUM 137 MCG PO SCH (19:24)
[2020-07-12] MEDS: Simvastatin 10 MG Tab PO SCH (19:25)
[2020-07-12] MEDS: BUPROPION 300 MG PO SCH (19:25)
[2020-07-12] MEDS: Acetaminophen 325 MG Tab PO PRN (19:25)
[2020-07-12] MEDS: Menthol/Methyl Salicylate 85 GM Tube TOP PRN (19:26)
[2020-07-13] MEDS: Ibuprofen 600 MG Tab PO PRN ×2 (03:18→07:42)
[2020-07-13] MEDS: Menthol/Methyl Salicylate 85 GM Tube TOP PRN ×2 (03:18→19:22)
[2020-07-13] MEDS: Citalopram 20 MG Tab PO SCH (07:41)
[2020-07-13] MEDS: Potassium Chloride 20 MEQ Tab.ER PO SCH ×4 (07:41→19:21)
[2020-07-13] MEDS: Furosemide 20 MG Tab PO SCH ×2 (07:41→17:23)
[2020-07-13] MEDS: Fludrocortisone 0.1 MG Tab PO SCH ×2 (07:42→19:21)
[2020-07-13] MEDS: Albuterol/Ipratropium 3.0-0.5 MG/3 ML Neb Soln NEB SCH ×4 (07:43→19:21)
[2020-07-13] MEDS: Ferrous Sulfate 325 MG Tab PO SCH (07:43)
[2020-07-13] MEDS: Niacin 500 MG Tab PO SCH ×2 (07:44→17:23)
[2020-07-13] MEDS: Calcium Carbonate 750 MG Tab.Chew PO SCH (07:44)
[2020-07-13] MEDS: Cholecalciferol (Vitamin D3) 25 MCG Tab PO SCH (07:45)
[2020-07-13] MEDS: Cyanocobalamin (Vitamin B12) 1,000 MCG Tab PO SCH (07:45)
[2020-07-13] MEDS: Acetaminophen 325 MG Tab PO PRN (11:56)
[2020-07-13] MEDS: LEVOTHYROXINE SODIUM 137 MCG PO SCH (19:21)
[2020-07-13] MEDS: BUPROPION 300 MG PO SCH (19:22)
[2020-07-13] MEDS: Simvastatin 10 MG Tab PO SCH (19:22)
[2020-07-14] MEDS: Acetaminophen 325 MG Tab PO PRN ×3 (02:39→19:42)
[2020-07-14] MEDS: Furosemide 20 MG Tab PO SCH ×2 (08:19→17:56)
[2020-07-14] MEDS: Potassium Chloride 20 MEQ Tab.ER PO SCH ×4 (08:19→19:40)
[2020-07-14] MEDS: Citalopram 20 MG Tab PO SCH (08:19)
[2020-07-14] MEDS: Fludrocortisone 0.1 MG Tab PO SCH ×2 (08:20→19:40)
[2020-07-14] MEDS: Albuterol/Ipratropium 3.0-0.5 MG/3 ML Neb Soln NEB SCH ×4 (08:20→19:39)
[2020-07-14] MEDS: Niacin 500 MG Tab PO SCH ×2 (08:21→17:56)
[2020-07-14] MEDS: Cyanocobalamin (Vitamin B12) 1,000 MCG Tab PO SCH (08:21)
[2020-07-14] MEDS: Ferrous Sulfate 325 MG Tab PO SCH (08:21)
[2020-07-14] MEDS: Cholecalciferol (Vitamin D3) 25 MCG Tab PO SCH (08:23)
[2020-07-14] MEDS: Calcium Carbonate 750 MG Tab.Chew PO SCH (08:23)
[2020-07-14] MEDS: Ibuprofen 600 MG Tab PO PRN (12:17)
[2020-07-14] MEDS: LEVOTHYROXINE SODIUM 137 MCG PO SCH (19:40)
[2020-07-14] MEDS: BUPROPION 300 MG PO SCH (19:40)
[2020-07-14] MEDS: Menthol/Methyl Salicylate 85 GM Tube TOP PRN (19:41)
[2020-07-14] MEDS: Simvastatin 10 MG Tab PO SCH (19:41)
[2020-07-15] MEDS: Potassium Chloride 20 MEQ Tab.ER PO SCH ×4 (08:43→19:30)
[2020-07-15] MEDS: Citalopram 20 MG Tab PO SCH (08:43)
[2020-07-15] MEDS: Fludrocortisone 0.1 MG Tab PO SCH ×2 (08:44→19:29)
[2020-07-15] MEDS: Furosemide 20 MG Tab PO SCH ×2 (08:44→17:43)
[2020-07-15] MEDS: Ferrous Sulfate 325 MG Tab PO SCH (08:44)
[2020-07-15] MEDS: Albuterol/Ipratropium 3.0-0.5 MG/3 ML Neb Soln NEB SCH ×4 (08:44→19:29)
[2020-07-15] MEDS: Niacin 500 MG Tab PO SCH ×2 (08:45→17:43)
[2020-07-15] MEDS: Calcium Carbonate 750 MG Tab.Chew PO SCH (08:45)
[2020-07-15] MEDS: Cyanocobalamin (Vitamin B12) 1,000 MCG Tab PO SCH (08:46)
[2020-07-15] MEDS: Cholecalciferol (Vitamin D3) 25 MCG Tab PO SCH (08:46)
[2020-07-15] MEDS: Ibuprofen 600 MG Tab PO PRN (17:45)
[2020-07-15] MEDS: LEVOTHYROXINE SODIUM 137 MCG PO SCH (19:30)
[2020-07-15] MEDS: Simvastatin 10 MG Tab PO SCH (19:30)
[2020-07-15] MEDS: Acetaminophen 325 MG Tab PO PRN (19:30)
[2020-07-15] MEDS: BUPROPION 300 MG PO SCH (19:30)
[2020-07-15] MEDS: Menthol/Methyl Salicylate 85 GM Tube TOP PRN (19:32)
[2020-07-16] MEDS: Ibuprofen 600 MG Tab PO PRN ×2 (01:15→17:22)
[2020-07-16] MEDS: Albuterol/Ipratropium 3.0-0.5 MG/3 ML Neb Soln NEB SCH ×4 (07:44→19:24)
[2020-07-16] MEDS: Citalopram 20 MG Tab PO SCH (07:44)
[2020-07-16] MEDS: Fludrocortisone 0.1 MG Tab PO SCH ×2 (07:45→19:24)
[2020-07-16] MEDS: Ferrous Sulfate 325 MG Tab PO SCH (07:45)
[2020-07-16] MEDS: Potassium Chloride 20 MEQ Tab.ER PO SCH ×4 (07:46→19:25)
[2020-07-16] MEDS: Furosemide 20 MG Tab PO SCH ×2 (07:46→17:20)
[2020-07-16] MEDS: Niacin 500 MG Tab PO SCH ×2 (07:46→17:20)
[2020-07-16] MEDS: Calcium Carbonate 750 MG Tab.Chew PO SCH (07:47)
[2020-07-16] MEDS: Cholecalciferol (Vitamin D3) 25 MCG Tab PO SCH (07:48)
[2020-07-16] MEDS: Cyanocobalamin (Vitamin B12) 1,000 MCG Tab PO SCH (07:48)
[2020-07-16] MEDS: Simvastatin 10 MG Tab PO SCH (19:25)
[2020-07-16] MEDS: BUPROPION 300 MG PO SCH (19:25)
[2020-07-16] MEDS: LEVOTHYROXINE SODIUM 137 MCG PO SCH (19:25)
[2020-07-16] MEDS: Acetaminophen 325 MG Tab PO PRN (19:26)
[2020-07-16] MEDS: Menthol/Methyl Salicylate 85 GM Tube TOP PRN (19:26)
[2020-07-17] MEDS: Ibuprofen 600 MG Tab PO PRN ×3 (00:28→23:41)
[2020-07-17] MEDS: Acetaminophen 325 MG Tab PO PRN ×2 (04:27→11:19)
[2020-07-17] MEDS: Menthol/Methyl Salicylate 85 GM Tube TOP PRN ×2 (04:28→19:45)
[2020-07-17] MEDS: Albuterol/Ipratropium 3.0-0.5 MG/3 ML Neb Soln NEB SCH ×4 (07:47→19:43)
[2020-07-17] MEDS: Citalopram 20 MG Tab PO SCH (07:47)
[2020-07-17] MEDS: Calcium Carbonate 750 MG Tab.Chew PO SCH (07:47)
[2020-07-17] MEDS: Furosemide 20 MG Tab PO SCH ×2 (07:48→17:03)
[2020-07-17] MEDS: Ferrous Sulfate 325 MG Tab PO SCH (07:48)
[2020-07-17] MEDS: Potassium Chloride 20 MEQ Tab.ER PO SCH ×4 (07:48→19:43)
[2020-07-17] MEDS: Fludrocortisone 0.1 MG Tab PO SCH ×2 (07:48→19:43)
[2020-07-17] MEDS: Cholecalciferol (Vitamin D3) 25 MCG Tab PO SCH (07:49)
[2020-07-17] MEDS: Niacin 500 MG Tab PO SCH ×2 (07:49→17:03)
[2020-07-17] MEDS: Cyanocobalamin (Vitamin B12) 1,000 MCG Tab PO SCH (07:49)
[2020-07-17] MEDS: LEVOTHYROXINE SODIUM 137 MCG PO SCH (19:44)
[2020-07-17] MEDS: BUPROPION 300 MG PO SCH (19:44)
[2020-07-17] MEDS: Simvastatin 10 MG Tab PO SCH (19:44)
[2020-07-18] MEDS: Albuterol/Ipratropium 3.0-0.5 MG/3 ML Neb Soln NEB SCH ×4 (08:42→19:27)
[2020-07-18] MEDS: Potassium Chloride 20 MEQ Tab.ER PO SCH ×4 (08:43→19:28)
[2020-07-18] MEDS: Fludrocortisone 0.1 MG Tab PO SCH ×2 (08:43→19:28)
[2020-07-18] MEDS: Citalopram 20 MG Tab PO SCH (08:43)
[2020-07-18] MEDS: Furosemide 20 MG Tab PO SCH ×2 (08:43→17:05)
[2020-07-18] MEDS: Calcium Carbonate 750 MG Tab.Chew PO SCH (08:45)
[2020-07-18] MEDS: Cholecalciferol (Vitamin D3) 25 MCG Tab PO SCH (08:45)
[2020-07-18] MEDS: Cyanocobalamin (Vitamin B12) 1,000 MCG Tab PO SCH (08:45)
[2020-07-18] MEDS: Niacin 500 MG Tab PO SCH ×2 (08:45→17:05)
[2020-07-18] MEDS: Acetaminophen 325 MG Tab PO PRN (08:46)
[2020-07-18] MEDS: Ferrous Sulfate 325 MG Tab PO SCH (08:51)
[2020-07-18] MEDS: Ibuprofen 600 MG Tab PO PRN (12:22)
[2020-07-18] MEDS: BUPROPION 300 MG PO SCH (19:29)
[2020-07-18] MEDS: Simvastatin 10 MG Tab PO SCH (19:29)
[2020-07-18] MEDS: LEVOTHYROXINE SODIUM 137 MCG PO SCH (19:29)
[2020-07-18] MEDS: Menthol/Methyl Salicylate 85 GM Tube TOP PRN (19:30)
[2020-07-19] MEDS: Albuterol/Ipratropium 3.0-0.5 MG/3 ML Neb Soln NEB SCH ×4 (07:14→19:15)
[2020-07-19] MEDS: Citalopram 20 MG Tab PO SCH (07:22)
[2020-07-19] MEDS: Ferrous Sulfate 325 MG Tab PO SCH (07:23)
[2020-07-19] MEDS: Potassium Chloride 20 MEQ Tab.ER PO SCH ×4 (07:24→19:16)
[2020-07-19] MEDS: Fludrocortisone 0.1 MG Tab PO SCH ×2 (07:24→19:16)
[2020-07-19] MEDS: Niacin 500 MG Tab PO SCH ×2 (07:25→17:37)
[2020-07-19] MEDS: Furosemide 20 MG Tab PO SCH ×2 (07:25→17:37)
[2020-07-19] MEDS: Calcium Carbonate 750 MG Tab.Chew PO SCH (07:25)
[2020-07-19] MEDS: Cholecalciferol (Vitamin D3) 25 MCG Tab PO SCH (07:26)
[2020-07-19] MEDS: Cyanocobalamin (Vitamin B12) 1,000 MCG Tab PO SCH (07:27)
[2020-07-19] MEDS: Ibuprofen 600 MG Tab PO PRN (07:29)
[2020-07-19] MEDS: Simvastatin 10 MG Tab PO SCH (19:17)
[2020-07-19] MEDS: LEVOTHYROXINE SODIUM 137 MCG PO SCH (19:17)
[2020-07-19] MEDS: BUPROPION 300 MG PO SCH (19:17)
[2020-07-19] MEDS: Acetaminophen 325 MG Tab PO PRN (19:18)
[2020-07-19] MEDS: Menthol/Methyl Salicylate 85 GM Tube TOP PRN (19:19)
[2020-07-19] MEDS: Bisacodyl 5 MG Tab PO PRN (19:24)
[2020-07-20] MEDS: Ibuprofen 600 MG Tab PO PRN ×4 (01:39→23:53)
[2020-07-20] MEDS: Citalopram 20 MG Tab PO SCH (07:46)
[2020-07-20] MEDS: Fludrocortisone 0.1 MG Tab PO SCH ×2 (07:46→19:38)
[2020-07-20] MEDS: Furosemide 20 MG Tab PO SCH ×2 (07:46→17:10)
[2020-07-20] MEDS: Potassium Chloride 20 MEQ Tab.ER PO SCH ×4 (07:46→19:38)
[2020-07-20] MEDS: Ferrous Sulfate 325 MG Tab PO SCH (07:47)
[2020-07-20] MEDS: Menthol/Methyl Salicylate 85 GM Tube TOP PRN ×2 (07:47→19:39)
[2020-07-20] MEDS: Albuterol/Ipratropium 3.0-0.5 MG/3 ML Neb Soln NEB SCH ×4 (07:47→19:37)
[2020-07-20] MEDS: Calcium Carbonate 750 MG Tab.Chew PO SCH (07:48)
[2020-07-20] MEDS: Cholecalciferol (Vitamin D3) 25 MCG Tab PO SCH (07:48)
[2020-07-20] MEDS: Niacin 500 MG Tab PO SCH ×2 (07:48→17:11)
[2020-07-20] MEDS: Cyanocobalamin (Vitamin B12) 1,000 MCG Tab PO SCH (07:48)
[2020-07-20] MEDS: Acetaminophen 325 MG Tab PO PRN ×2 (11:21→19:40)
[2020-07-20] MEDS: LEVOTHYROXINE SODIUM 137 MCG PO SCH (19:38)
[2020-07-20] MEDS: BUPROPION 300 MG PO SCH (19:38)
[2020-07-20] MEDS: Simvastatin 10 MG Tab PO SCH (19:38)
[2020-07-21] MEDS: Potassium Chloride 20 MEQ Tab.ER PO SCH ×4 (07:52→19:36)
[2020-07-21] MEDS: Citalopram 20 MG Tab PO SCH (07:52)
[2020-07-21] MEDS: Furosemide 20 MG Tab PO SCH ×2 (07:52→17:42)
[2020-07-21] MEDS: Ferrous Sulfate 325 MG Tab PO SCH (07:53)
[2020-07-21] MEDS: Fludrocortisone 0.1 MG Tab PO SCH ×2 (07:53→19:35)
[2020-07-21] MEDS: Albuterol/Ipratropium 3.0-0.5 MG/3 ML Neb Soln NEB SCH ×4 (07:53→19:42)
[2020-07-21] MEDS: Niacin 500 MG Tab PO SCH ×2 (07:54→17:42)
[2020-07-21] MEDS: Calcium Carbonate 750 MG Tab.Chew PO SCH (07:54)
[2020-07-21] MEDS: Cyanocobalamin (Vitamin B12) 1,000 MCG Tab PO SCH (07:54)
[2020-07-21] MEDS: Cholecalciferol (Vitamin D3) 25 MCG Tab PO SCH (07:54)
[2020-07-21] MEDS: Ibuprofen 600 MG Tab PO PRN ×2 (07:55→19:35)
[2020-07-21] MEDS: Acetaminophen 325 MG Tab PO PRN ×2 (12:09→17:44)
[2020-07-21] MEDS: BUPROPION 300 MG PO SCH (19:36)
[2020-07-21] MEDS: LEVOTHYROXINE SODIUM 137 MCG PO SCH (19:36)
[2020-07-21] MEDS: Simvastatin 10 MG Tab PO SCH (19:36)
[2020-07-22] MEDS: Ibuprofen 600 MG Tab PO PRN (08:31)
[2020-07-22] MEDS: Potassium Chloride 20 MEQ Tab.ER PO SCH ×4 (08:32→19:03)
[2020-07-22] MEDS: Furosemide 20 MG Tab PO SCH ×2 (08:32→17:39)
[2020-07-22] MEDS: Citalopram 20 MG Tab PO SCH (08:33)
[2020-07-22] MEDS: Albuterol/Ipratropium 3.0-0.5 MG/3 ML Neb Soln NEB SCH ×4 (08:33→19:03)
[2020-07-22] MEDS: Fludrocortisone 0.1 MG Tab PO SCH ×2 (08:33→19:03)
[2020-07-22] MEDS: Niacin 500 MG Tab PO SCH ×2 (08:34→17:39)
[2020-07-22] MEDS: Ferrous Sulfate 325 MG Tab PO SCH (08:34)
[2020-07-22] MEDS: Calcium Carbonate 750 MG Tab.Chew PO SCH (08:35)
[2020-07-22] MEDS: Cyanocobalamin (Vitamin B12) 1,000 MCG Tab PO SCH (08:36)
[2020-07-22] MEDS: Cholecalciferol (Vitamin D3) 25 MCG Tab PO SCH (08:36)
[2020-07-22] MEDS: Acetaminophen 325 MG Tab PO PRN (15:57)
[2020-07-22] MEDS: BUPROPION 300 MG PO SCH (19:03)
[2020-07-22] MEDS: Simvastatin 10 MG Tab PO SCH (19:03)
[2020-07-22] MEDS: LEVOTHYROXINE SODIUM 137 MCG PO SCH (19:03)
[2020-07-23] MEDS: Furosemide 20 MG Tab PO SCH ×2 (07:13→17:45)
[2020-07-23] MEDS: Citalopram 20 MG Tab PO SCH (07:13)
[2020-07-23] MEDS: Potassium Chloride 20 MEQ Tab.ER PO SCH ×4 (07:13→19:47)
[2020-07-23] MEDS: Ferrous Sulfate 325 MG Tab PO SCH (07:14)
[2020-07-23] MEDS: Fludrocortisone 0.1 MG Tab PO SCH ×2 (07:14→19:47)
[2020-07-23] MEDS: Albuterol/Ipratropium 3.0-0.5 MG/3 ML Neb Soln NEB SCH ×4 (07:14→19:46)
[2020-07-23] MEDS: Niacin 500 MG Tab PO SCH ×2 (07:15→17:45)
[2020-07-23] MEDS: Calcium Carbonate 750 MG Tab.Chew PO SCH (07:15)
[2020-07-23] MEDS: Cholecalciferol (Vitamin D3) 25 MCG Tab PO SCH (07:15)
[2020-07-23] MEDS: Cyanocobalamin (Vitamin B12) 1,000 MCG Tab PO SCH (07:16)
[2020-07-23] MEDS: Ibuprofen 600 MG Tab PO PRN (07:16)
[2020-07-23] MEDS: Acetaminophen 325 MG Tab PO PRN ×2 (12:07→17:46)
[2020-07-23] MEDS: LEVOTHYROXINE SODIUM 137 MCG PO SCH (19:47)
[2020-07-23] MEDS: Simvastatin 10 MG Tab PO SCH (19:48)
[2020-07-23] MEDS: BUPROPION 300 MG PO SCH (19:48)
[2020-07-23] MEDS: Menthol/Methyl Salicylate 85 GM Tube TOP PRN (19:49)
[2020-07-24] MEDS: Acetaminophen 325 MG Tab PO PRN ×3 (02:32→23:58)
[2020-07-24] MEDS: Potassium Chloride 20 MEQ Tab.ER PO SCH ×4 (07:54→19:30)
[2020-07-24] MEDS: Albuterol/Ipratropium 3.0-0.5 MG/3 ML Neb Soln NEB SCH ×4 (07:55→19:31)
[2020-07-24] MEDS: Ferrous Sulfate 325 MG Tab PO SCH (07:55)
[2020-07-24] MEDS: Citalopram 20 MG Tab PO SCH (07:55)
[2020-07-24] MEDS: Furosemide 20 MG Tab PO SCH ×2 (07:56→18:01)
[2020-07-24] MEDS: Fludrocortisone 0.1 MG Tab PO SCH ×2 (07:56→19:30)
[2020-07-24] MEDS: Calcium Carbonate 750 MG Tab.Chew PO SCH (07:56)
[2020-07-24] MEDS: Niacin 500 MG Tab PO SCH ×2 (07:56→18:02)
[2020-07-24] MEDS: Cyanocobalamin (Vitamin B12) 1,000 MCG Tab PO SCH (07:57)
[2020-07-24] MEDS: Cholecalciferol (Vitamin D3) 25 MCG Tab PO SCH (07:58)
[2020-07-24] MEDS: Ibuprofen 600 MG Tab PO PRN (16:02)
[2020-07-24] MEDS: BUPROPION 300 MG PO SCH (19:30)
[2020-07-24] MEDS: LEVOTHYROXINE SODIUM 137 MCG PO SCH (19:30)
[2020-07-24] MEDS: Simvastatin 10 MG Tab PO SCH (19:31)
[2020-07-24] MEDS: Menthol/Methyl Salicylate 85 GM Tube TOP PRN (19:32)
[2020-07-25] MEDS: Albuterol/Ipratropium 3.0-0.5 MG/3 ML Neb Soln NEB SCH ×4 (07:53→19:30)
[2020-07-25] MEDS: Citalopram 20 MG Tab PO SCH (07:54)
[2020-07-25] MEDS: Niacin 500 MG Tab PO SCH ×2 (07:55→17:21)
[2020-07-25] MEDS: Fludrocortisone 0.1 MG Tab PO SCH ×2 (07:55→19:30)
[2020-07-25] MEDS: Furosemide 20 MG Tab PO SCH ×2 (07:55→17:21)
[2020-07-25] MEDS: Potassium Chloride 20 MEQ Tab.ER PO SCH ×4 (07:55→19:30)
[2020-07-25] MEDS: Calcium Carbonate 750 MG Tab.Chew PO SCH (07:56)
[2020-07-25] MEDS: Ferrous Sulfate 325 MG Tab PO SCH (07:56)
[2020-07-25] MEDS: Cyanocobalamin (Vitamin B12) 1,000 MCG Tab PO SCH (07:57)
[2020-07-25] MEDS: Cholecalciferol (Vitamin D3) 25 MCG Tab PO SCH (07:57)
[2020-07-25] MEDS: Ibuprofen 600 MG Tab PO PRN ×2 (09:05→19:32)
[2020-07-25] MEDS: Menthol/Methyl Salicylate 85 GM Tube TOP PRN (19:31)
[2020-07-25] MEDS: Simvastatin 10 MG Tab PO SCH (19:31)
[2020-07-25] MEDS: BUPROPION 300 MG PO SCH (19:31)
[2020-07-25] MEDS: LEVOTHYROXINE SODIUM 137 MCG PO SCH (19:31)
[2020-07-26] MEDS: Fludrocortisone 0.1 MG Tab PO SCH ×2 (08:06→19:34)
[2020-07-26] MEDS: Citalopram 20 MG Tab PO SCH (08:06)
[2020-07-26] MEDS: Potassium Chloride 20 MEQ Tab.ER PO SCH ×4 (08:06→19:34)
[2020-07-26] MEDS: Furosemide 20 MG Tab PO SCH ×2 (08:06→17:35)
[2020-07-26] MEDS: Calcium Carbonate 750 MG Tab.Chew PO SCH (08:07)
[2020-07-26] MEDS: Albuterol/Ipratropium 3.0-0.5 MG/3 ML Neb Soln NEB SCH ×4 (08:07→19:34)
[2020-07-26] MEDS: Niacin 500 MG Tab PO SCH ×2 (08:07→17:36)
[2020-07-26] MEDS: Ferrous Sulfate 325 MG Tab PO SCH (08:07)
[2020-07-26] MEDS: Cholecalciferol (Vitamin D3) 25 MCG Tab PO SCH (08:08)
[2020-07-26] MEDS: Cyanocobalamin (Vitamin B12) 1,000 MCG Tab PO SCH (08:08)
[2020-07-26] MEDS: Ibuprofen 600 MG Tab PO PRN ×2 (08:09→19:36)
[2020-07-26] MEDS: Acetaminophen 325 MG Tab PO PRN (12:12)
[2020-07-26] MEDS: LEVOTHYROXINE SODIUM 137 MCG PO SCH (19:35)
[2020-07-26] MEDS: Simvastatin 10 MG Tab PO SCH (19:35)
[2020-07-26] MEDS: BUPROPION 300 MG PO SCH (19:35)
[2020-07-26] MEDS: Menthol/Methyl Salicylate 85 GM Tube TOP PRN (19:36)
[2020-07-27] MEDS: Potassium Chloride 20 MEQ Tab.ER PO SCH ×4 (08:19→19:44)
[2020-07-27] MEDS: Albuterol/Ipratropium 3.0-0.5 MG/3 ML Neb Soln NEB SCH ×4 (08:19→19:43)
[2020-07-27] MEDS: Citalopram 20 MG Tab PO SCH (08:19)
[2020-07-27] MEDS: Fludrocortisone 0.1 MG Tab PO SCH ×2 (08:19→19:44)
[2020-07-27] MEDS: Furosemide 20 MG Tab PO SCH ×2 (08:20→17:00)
[2020-07-27] MEDS: Niacin 500 MG Tab PO SCH ×2 (08:21→17:01)
[2020-07-27] MEDS: Cyanocobalamin (Vitamin B12) 1,000 MCG Tab PO SCH (08:21)
[2020-07-27] MEDS: Calcium Carbonate 750 MG Tab.Chew PO SCH (08:22)
[2020-07-27] MEDS: Cholecalciferol (Vitamin D3) 25 MCG Tab PO SCH (08:22)
[2020-07-27] MEDS: Ibuprofen 600 MG Tab PO PRN ×2 (08:23→17:21)
[2020-07-27] MEDS: Ferrous Sulfate 325 MG Tab PO SCH (08:24)
[2020-07-27] MEDS: BUPROPION 300 MG PO SCH (19:45)
[2020-07-27] MEDS: LEVOTHYROXINE SODIUM 137 MCG PO SCH (19:45)
[2020-07-27] MEDS: Simvastatin 10 MG Tab PO SCH (19:45)
[2020-07-27] MEDS: Menthol/Methyl Salicylate 85 GM Tube TOP PRN (19:46)
[2020-07-28] MEDS: Citalopram 20 MG Tab PO SCH (07:46)
[2020-07-28] MEDS: Albuterol/Ipratropium 3.0-0.5 MG/3 ML Neb Soln NEB SCH ×4 (07:47→19:29)
[2020-07-28] MEDS: Fludrocortisone 0.1 MG Tab PO SCH ×2 (07:47→19:28)
[2020-07-28] MEDS: Ferrous Sulfate 325 MG Tab PO SCH (07:47)
[2020-07-28] MEDS: Niacin 500 MG Tab PO SCH ×2 (07:48→17:05)
[2020-07-28] MEDS: Potassium Chloride 20 MEQ Tab.ER PO SCH ×4 (07:48→19:28)
[2020-07-28] MEDS: Furosemide 20 MG Tab PO SCH ×2 (07:48→17:05)
[2020-07-28] MEDS: Calcium Carbonate 750 MG Tab.Chew PO SCH (07:49)
[2020-07-28] MEDS: Acetaminophen 325 MG Tab PO PRN ×2 (07:49→15:05)
[2020-07-28] MEDS: Cholecalciferol (Vitamin D3) 25 MCG Tab PO SCH (07:49)
[2020-07-28] MEDS: Cyanocobalamin (Vitamin B12) 1,000 MCG Tab PO SCH (07:49)
[2020-07-28] MEDS: Ibuprofen 600 MG Tab PO PRN (11:11)
[2020-07-28] MEDS: LEVOTHYROXINE SODIUM 137 MCG PO SCH (19:28)
[2020-07-28] MEDS: BUPROPION 300 MG PO SCH (19:28)
[2020-07-28] MEDS: Simvastatin 10 MG Tab PO SCH (19:28)
[2020-07-29] MEDS: Albuterol/Ipratropium 3.0-0.5 MG/3 ML Neb Soln NEB SCH ×4 (07:46→19:25)
[2020-07-29] MEDS: Citalopram 20 MG Tab PO SCH (07:47)
[2020-07-29] MEDS: Fludrocortisone 0.1 MG Tab PO SCH ×2 (07:47→19:25)
[2020-07-29] MEDS: Ferrous Sulfate 325 MG Tab PO SCH (07:47)
[2020-07-29] MEDS: Furosemide 20 MG Tab PO SCH ×2 (07:47→17:11)
[2020-07-29] MEDS: Potassium Chloride 20 MEQ Tab.ER PO SCH ×4 (07:47→19:25)
[2020-07-29] MEDS: Cyanocobalamin (Vitamin B12) 1,000 MCG Tab PO SCH (07:48)
[2020-07-29] MEDS: Calcium Carbonate 750 MG Tab.Chew PO SCH (07:48)
[2020-07-29] MEDS: Niacin 500 MG Tab PO SCH ×2 (07:48→17:11)
[2020-07-29] MEDS: Cholecalciferol (Vitamin D3) 25 MCG Tab PO SCH (07:48)
[2020-07-29] MEDS: Acetaminophen 325 MG Tab PO PRN ×2 (07:49→15:06)
[2020-07-29] MEDS: Ibuprofen 600 MG Tab PO PRN (11:06)
[2020-07-29] MEDS: LEVOTHYROXINE SODIUM 137 MCG PO SCH (19:25)
[2020-07-29] MEDS: BUPROPION 300 MG PO SCH (19:25)
[2020-07-29] MEDS: Simvastatin 10 MG Tab PO SCH (19:26)
[2020-07-30] MEDS: Albuterol/Ipratropium 3.0-0.5 MG/3 ML Neb Soln NEB SCH ×4 (07:47→21:47)
[2020-07-30] MEDS: Citalopram 20 MG Tab PO SCH (07:47)
[2020-07-30] MEDS: Ferrous Sulfate 325 MG Tab PO SCH (07:48)
[2020-07-30] MEDS: Fludrocortisone 0.1 MG Tab PO SCH ×2 (07:48→19:21)
[2020-07-30] MEDS: Furosemide 20 MG Tab PO SCH ×2 (07:49→17:46)
[2020-07-30] MEDS: Potassium Chloride 20 MEQ Tab.ER PO SCH ×4 (07:49→19:22)
[2020-07-30] MEDS: Niacin 500 MG Tab PO SCH ×2 (07:50→17:46)
[2020-07-30] MEDS: Calcium Carbonate 750 MG Tab.Chew PO SCH (07:50)
[2020-07-30] MEDS: Cholecalciferol (Vitamin D3) 25 MCG Tab PO SCH (07:51)
[2020-07-30] MEDS: Ibuprofen 600 MG Tab PO PRN (07:52)
[2020-07-30] MEDS: Cyanocobalamin (Vitamin B12) 1,000 MCG Tab PO SCH (09:14)
[2020-07-30] MEDS: LEVOTHYROXINE SODIUM 137 MCG PO SCH (19:22)
[2020-07-30] MEDS: Simvastatin 10 MG Tab PO SCH (19:22)
[2020-07-30] MEDS: BUPROPION 300 MG PO SCH (19:22)
[2020-07-31] MEDS: Acetaminophen 325 MG Tab PO PRN ×3 (03:38→18:21)
[2020-07-31] MEDS: Furosemide 20 MG Tab PO SCH ×2 (08:08→18:17)
[2020-07-31] MEDS: Fludrocortisone 0.1 MG Tab PO SCH ×2 (08:08→19:27)
[2020-07-31] MEDS: Citalopram 20 MG Tab PO SCH (08:08)
[2020-07-31] MEDS: Potassium Chloride 20 MEQ Tab.ER PO SCH ×4 (08:08→19:27)
[2020-07-31] MEDS: Albuterol/Ipratropium 3.0-0.5 MG/3 ML Neb Soln NEB SCH ×4 (08:09→19:26)
[2020-07-31] MEDS: Niacin 500 MG Tab PO SCH ×2 (08:10→18:17)
[2020-07-31] MEDS: Calcium Carbonate 750 MG Tab.Chew PO SCH (08:10)
[2020-07-31] MEDS: Cholecalciferol (Vitamin D3) 25 MCG Tab PO SCH (08:11)
[2020-07-31] MEDS: Cyanocobalamin (Vitamin B12) 1,000 MCG Tab PO SCH (08:11)
[2020-07-31] MEDS: Ibuprofen 600 MG Tab PO PRN (08:12)
[2020-07-31] MEDS: Ferrous Sulfate 325 MG Tab PO SCH (08:13)
[2020-07-31] MEDS: LEVOTHYROXINE SODIUM 137 MCG PO SCH (19:27)
[2020-07-31] MEDS: BUPROPION 300 MG PO SCH (19:28)
[2020-07-31] MEDS: Simvastatin 10 MG Tab PO SCH (19:28)
[2020-07-31] MEDS: Menthol/Methyl Salicylate 85 GM Tube TOP PRN (19:29)
[2020-08-01] MEDS: Ibuprofen 600 MG Tab PO PRN ×3 (03:32→19:36)
[2020-08-01] MEDS: Albuterol/Ipratropium 3.0-0.5 MG/3 ML Neb Soln NEB SCH ×4 (07:31→19:33)
[2020-08-01] MEDS: Acetaminophen 325 MG Tab PO PRN ×2 (07:31→15:01)
[2020-08-01] MEDS: Ferrous Sulfate 325 MG Tab PO SCH (07:32)
[2020-08-01] MEDS: Furosemide 20 MG Tab PO SCH ×2 (07:32→17:04)
[2020-08-01] MEDS: Fludrocortisone 0.1 MG Tab PO SCH ×2 (07:32→19:33)
[2020-08-01] MEDS: Citalopram 20 MG Tab PO SCH (07:32)
[2020-08-01] MEDS: Potassium Chloride 20 MEQ Tab.ER PO SCH ×4 (07:32→19:33)
[2020-08-01] MEDS: Calcium Carbonate 750 MG Tab.Chew PO SCH (07:33)
[2020-08-01] MEDS: Cyanocobalamin (Vitamin B12) 1,000 MCG Tab PO SCH (07:33)
[2020-08-01] MEDS: Niacin 500 MG Tab PO SCH ×2 (07:33→17:04)
[2020-08-01] MEDS: Cholecalciferol (Vitamin D3) 25 MCG Tab PO SCH (07:33)
[2020-08-01] MEDS: Simvastatin 10 MG Tab PO SCH (19:34)
[2020-08-01] MEDS: BUPROPION 300 MG PO SCH (19:34)
[2020-08-01] MEDS: LEVOTHYROXINE SODIUM 137 MCG PO SCH (19:34)
[2020-08-01] MEDS: Menthol/Methyl Salicylate 85 GM Tube TOP PRN (19:35)
[2020-08-02] MEDS: Albuterol/Ipratropium 3.0-0.5 MG/3 ML Neb Soln NEB SCH ×4 (07:53→19:33)
[2020-08-02] MEDS: Fludrocortisone 0.1 MG Tab PO SCH ×2 (07:54→19:33)
[2020-08-02] MEDS: Potassium Chloride 20 MEQ Tab.ER PO SCH ×4 (07:54→19:33)
[2020-08-02] MEDS: Ferrous Sulfate 325 MG Tab PO SCH (07:54)
[2020-08-02] MEDS: Furosemide 20 MG Tab PO SCH ×2 (07:54→17:11)
[2020-08-02] MEDS: Citalopram 20 MG Tab PO SCH (07:54)
[2020-08-02] MEDS: Niacin 500 MG Tab PO SCH ×2 (07:55→17:11)
[2020-08-02] MEDS: Cyanocobalamin (Vitamin B12) 1,000 MCG Tab PO SCH (07:55)
[2020-08-02] MEDS: Cholecalciferol (Vitamin D3) 25 MCG Tab PO SCH (07:55)
[2020-08-02] MEDS: Calcium Carbonate 750 MG Tab.Chew PO SCH (07:55)
[2020-08-02] MEDS: Acetaminophen 325 MG Tab PO PRN ×2 (07:56→19:41)
[2020-08-02] MEDS: Ibuprofen 600 MG Tab PO PRN (11:16)
[2020-08-02] MEDS: BUPROPION 300 MG PO SCH (19:33)
[2020-08-02] MEDS: LEVOTHYROXINE SODIUM 137 MCG PO SCH (19:33)
[2020-08-02] MEDS: Simvastatin 10 MG Tab PO SCH (19:34)
[2020-08-02] MEDS: Menthol/Methyl Salicylate 85 GM Tube TOP PRN (19:41)
[2020-08-03] MEDS: Citalopram 20 MG Tab PO SCH (07:54)
[2020-08-03] MEDS: Ferrous Sulfate 325 MG Tab PO SCH (07:55)
[2020-08-03] MEDS: Albuterol/Ipratropium 3.0-0.5 MG/3 ML Neb Soln NEB SCH ×4 (07:55→19:25)
[2020-08-03] MEDS: Potassium Chloride 20 MEQ Tab.ER PO SCH ×4 (07:56→19:25)
[2020-08-03] MEDS: Fludrocortisone 0.1 MG Tab PO SCH ×2 (07:56→19:25)
[2020-08-03] MEDS: Furosemide 20 MG Tab PO SCH ×2 (07:57→17:24)
[2020-08-03] MEDS: Calcium Carbonate 750 MG Tab.Chew PO SCH (07:57)
[2020-08-03] MEDS: Niacin 500 MG Tab PO SCH ×2 (07:57→17:25)
[2020-08-03] MEDS: Cyanocobalamin (Vitamin B12) 1,000 MCG Tab PO SCH (07:58)
[2020-08-03] MEDS: Cholecalciferol (Vitamin D3) 25 MCG Tab PO SCH (07:59)
[2020-08-03] MEDS: LEVOTHYROXINE SODIUM 137 MCG PO SCH (19:25)
[2020-08-03] MEDS: BUPROPION 300 MG PO SCH (19:25)
[2020-08-03] MEDS: Simvastatin 10 MG Tab PO SCH (19:26)
[2020-08-04] MEDS: Potassium Chloride 20 MEQ Tab.ER PO SCH ×4 (08:38→19:35)
[2020-08-04] MEDS: Furosemide 20 MG Tab PO SCH ×2 (08:38→17:53)
[2020-08-04] MEDS: Fludrocortisone 0.1 MG Tab PO SCH ×2 (08:38→19:34)
[2020-08-04] MEDS: Citalopram 20 MG Tab PO SCH (08:38)
[2020-08-04] MEDS: Albuterol/Ipratropium 3.0-0.5 MG/3 ML Neb Soln NEB SCH ×4 (08:39→19:34)
[2020-08-04] MEDS: Ferrous Sulfate 325 MG Tab PO SCH (08:39)
[2020-08-04] MEDS: Niacin 500 MG Tab PO SCH ×2 (08:40→17:53)
[2020-08-04] MEDS: Calcium Carbonate 750 MG Tab.Chew PO SCH (08:40)
[2020-08-04] MEDS: Cyanocobalamin (Vitamin B12) 1,000 MCG Tab PO SCH (08:41)
[2020-08-04] MEDS: Ibuprofen 600 MG Tab PO PRN ×2 (08:41→19:36)
[2020-08-04] MEDS: Cholecalciferol (Vitamin D3) 25 MCG Tab PO SCH (08:43)
[2020-08-04] MEDS: Acetaminophen 325 MG Tab PO PRN ×2 (12:07→16:10)
[2020-08-04] MEDS: Simvastatin 10 MG Tab PO SCH (19:35)
[2020-08-04] MEDS: BUPROPION 300 MG PO SCH (19:35)
[2020-08-04] MEDS: LEVOTHYROXINE SODIUM 137 MCG PO SCH (19:35)
[2020-08-04] MEDS: Menthol/Methyl Salicylate 85 GM Tube TOP PRN (19:37)
[2020-08-05] MEDS: Potassium Chloride 20 MEQ Tab.ER PO SCH ×4 (08:03→19:28)
[2020-08-05] MEDS: Fludrocortisone 0.1 MG Tab PO SCH ×2 (08:03→19:28)
[2020-08-05] MEDS: Furosemide 20 MG Tab PO SCH ×2 (08:03→17:00)
[2020-08-05] MEDS: Citalopram 20 MG Tab PO SCH (08:03)
[2020-08-05] MEDS: Ferrous Sulfate 325 MG Tab PO SCH (08:04)
[2020-08-05] MEDS: Niacin 500 MG Tab PO SCH ×2 (08:04→17:00)
[2020-08-05] MEDS: Calcium Carbonate 750 MG Tab.Chew PO SCH (08:04)
[2020-08-05] MEDS: Albuterol/Ipratropium 3.0-0.5 MG/3 ML Neb Soln NEB SCH ×4 (08:04→19:28)
[2020-08-05] MEDS: Cyanocobalamin (Vitamin B12) 1,000 MCG Tab PO SCH (08:05)
[2020-08-05] MEDS: Cholecalciferol (Vitamin D3) 25 MCG Tab PO SCH (08:05)
[2020-08-05] MEDS: Ibuprofen 600 MG Tab PO PRN (11:44)
[2020-08-05] MEDS: Menthol/Methyl Salicylate 85 GM Tube TOP PRN (19:29)
[2020-08-05] MEDS: BUPROPION 300 MG PO SCH (19:29)
[2020-08-05] MEDS: Simvastatin 10 MG Tab PO SCH (19:29)
[2020-08-05] MEDS: LEVOTHYROXINE SODIUM 137 MCG PO SCH (19:29)
[2020-08-06] MEDS: Citalopram 20 MG Tab PO SCH (07:48)
[2020-08-06] MEDS: Potassium Chloride 20 MEQ Tab.ER PO SCH ×4 (07:48→19:38)
[2020-08-06] MEDS: Furosemide 20 MG Tab PO SCH ×2 (07:48→17:20)
[2020-08-06] MEDS: Fludrocortisone 0.1 MG Tab PO SCH ×2 (07:48→19:38)
[2020-08-06] MEDS: Albuterol/Ipratropium 3.0-0.5 MG/3 ML Neb Soln NEB SCH ×4 (07:49→19:38)
[2020-08-06] MEDS: Niacin 500 MG Tab PO SCH ×2 (07:49→17:20)
[2020-08-06] MEDS: Cyanocobalamin (Vitamin B12) 1,000 MCG Tab PO SCH (07:49)
[2020-08-06] MEDS: Cholecalciferol (Vitamin D3) 25 MCG Tab PO SCH (07:49)
[2020-08-06] MEDS: Calcium Carbonate 750 MG Tab.Chew PO SCH (07:50)
[2020-08-06] MEDS: Ferrous Sulfate 325 MG Tab PO SCH (07:50)
[2020-08-06] MEDS: Acetaminophen 325 MG Tab PO PRN (17:23)
[2020-08-06] MEDS: Simvastatin 10 MG Tab PO SCH (19:39)
[2020-08-06] MEDS: LEVOTHYROXINE SODIUM 137 MCG PO SCH (19:39)
[2020-08-06] MEDS: BUPROPION 300 MG PO SCH (19:39)
[2020-08-06] MEDS: Menthol/Methyl Salicylate 85 GM Tube TOP PRN (19:39)
[2020-08-06] MEDS: Ibuprofen 600 MG Tab PO PRN (19:40)
[2020-08-07] MEDS: Citalopram 20 MG Tab PO SCH (07:37)
[2020-08-07] MEDS: Albuterol/Ipratropium 3.0-0.5 MG/3 ML Neb Soln NEB SCH ×4 (07:38→19:42)
[2020-08-07] MEDS: Fludrocortisone 0.1 MG Tab PO SCH ×2 (07:38→19:43)
[2020-08-07] MEDS: Ferrous Sulfate 325 MG Tab PO SCH (07:38)
[2020-08-07] MEDS: Furosemide 20 MG Tab PO SCH ×2 (07:39→17:09)
[2020-08-07] MEDS: Calcium Carbonate 750 MG Tab.Chew PO SCH (07:39)
[2020-08-07] MEDS: Niacin 500 MG Tab PO SCH ×2 (07:39→17:09)
[2020-08-07] MEDS: Potassium Chloride 20 MEQ Tab.ER PO SCH ×4 (07:39→19:43)
[2020-08-07] MEDS: Acetaminophen 325 MG Tab PO PRN ×3 (07:40→23:22)
[2020-08-07] MEDS: Cyanocobalamin (Vitamin B12) 1,000 MCG Tab PO SCH (07:40)
[2020-08-07] MEDS: Cholecalciferol (Vitamin D3) 25 MCG Tab PO SCH (07:40)
[2020-08-07] MEDS: Ibuprofen 600 MG Tab PO PRN ×2 (11:05→19:48)
[2020-08-07] MEDS: LEVOTHYROXINE SODIUM 137 MCG PO SCH (19:43)
[2020-08-07] MEDS: BUPROPION 300 MG PO SCH (19:44)
[2020-08-07] MEDS: Simvastatin 10 MG Tab PO SCH (19:44)
[2020-08-08] MEDS: Albuterol/Ipratropium 3.0-0.5 MG/3 ML Neb Soln NEB SCH ×4 (07:31→19:30)
[2020-08-08] MEDS: Fludrocortisone 0.1 MG Tab PO SCH ×2 (07:31→19:31)
[2020-08-08] MEDS: Potassium Chloride 20 MEQ Tab.ER PO SCH ×4 (07:31→19:31)
[2020-08-08] MEDS: Citalopram 20 MG Tab PO SCH (07:31)
[2020-08-08] MEDS: Ferrous Sulfate 325 MG Tab PO SCH (07:31)
[2020-08-08] MEDS: Calcium Carbonate 750 MG Tab.Chew PO SCH (07:32)
[2020-08-08] MEDS: Niacin 500 MG Tab PO SCH ×2 (07:32→17:04)
[2020-08-08] MEDS: Furosemide 20 MG Tab PO SCH ×2 (07:32→17:04)
[2020-08-08] MEDS: Cholecalciferol (Vitamin D3) 25 MCG Tab PO SCH (07:33)
[2020-08-08] MEDS: Cyanocobalamin (Vitamin B12) 1,000 MCG Tab PO SCH (07:33)
[2020-08-08] MEDS: Acetaminophen 325 MG Tab PO PRN ×2 (07:33→15:03)
[2020-08-08] MEDS: Bisacodyl 5 MG Tab PO PRN (09:23)
[2020-08-08] MEDS: Aluminum Hydroxide/Magnesium Hydroxide/Simethicone Susp 30 ML Cup PO PRN (09:23)
[2020-08-08] MEDS: Ibuprofen 600 MG Tab PO PRN ×2 (09:26→19:33)
[2020-08-08] MEDS: Simvastatin 10 MG Tab PO SCH (19:32)
[2020-08-08] MEDS: BUPROPION 300 MG PO SCH (19:32)
[2020-08-08] MEDS: LEVOTHYROXINE SODIUM 137 MCG PO SCH (19:32)
[2020-08-08] MEDS: Menthol/Methyl Salicylate 85 GM Tube TOP PRN (19:35)
[2020-08-09] MEDS: Acetaminophen 325 MG Tab PO PRN ×2 (01:24→07:49)
[2020-08-09] MEDS: Albuterol/Ipratropium 3.0-0.5 MG/3 ML Neb Soln NEB SCH ×4 (07:45→19:36)
[2020-08-09] MEDS: Citalopram 20 MG Tab PO SCH (07:46)
[2020-08-09] MEDS: Potassium Chloride 20 MEQ Tab.ER PO SCH ×4 (07:46→19:37)
[2020-08-09] MEDS: Fludrocortisone 0.1 MG Tab PO SCH ×2 (07:46→19:37)
[2020-08-09] MEDS: Furosemide 20 MG Tab PO SCH ×2 (07:46→17:04)
[2020-08-09] MEDS: Ferrous Sulfate 325 MG Tab PO SCH (07:46)
[2020-08-09] MEDS: Cholecalciferol (Vitamin D3) 25 MCG Tab PO SCH (07:47)
[2020-08-09] MEDS: Niacin 500 MG Tab PO SCH ×2 (07:47→17:04)
[2020-08-09] MEDS: Calcium Carbonate 750 MG Tab.Chew PO SCH (07:47)
[2020-08-09] MEDS: Cyanocobalamin (Vitamin B12) 1,000 MCG Tab PO SCH (07:47)
[2020-08-09] MEDS: Ibuprofen 600 MG Tab PO PRN ×2 (11:03→19:39)
[2020-08-09] MEDS: Bisacodyl 5 MG Tab PO PRN (11:05)
[2020-08-09] MEDS: BUPROPION 300 MG PO SCH (19:37)
[2020-08-09] MEDS: LEVOTHYROXINE SODIUM 137 MCG PO SCH (19:37)
[2020-08-09] MEDS: Menthol/Methyl Salicylate 85 GM Tube TOP PRN (19:38)
[2020-08-09] MEDS: Simvastatin 10 MG Tab PO SCH (19:38)
[2020-08-10] MEDS: Albuterol/Ipratropium 3.0-0.5 MG/3 ML Neb Soln NEB SCH ×4 (08:36→19:53)
[2020-08-10] MEDS: Potassium Chloride 20 MEQ Tab.ER PO SCH ×4 (08:37→19:58)
[2020-08-10] MEDS: Furosemide 20 MG Tab PO SCH ×2 (08:38→17:31)
[2020-08-10] MEDS: Ferrous Sulfate 325 MG Tab PO SCH (08:38)
[2020-08-10] MEDS: Fludrocortisone 0.1 MG Tab PO SCH ×2 (08:38→19:58)
[2020-08-10] MEDS: Citalopram 20 MG Tab PO SCH (08:38)
[2020-08-10] MEDS: Niacin 500 MG Tab PO SCH ×2 (08:39→17:30)
[2020-08-10] MEDS: Calcium Carbonate 750 MG Tab.Chew PO SCH (08:39)
[2020-08-10] MEDS: Cyanocobalamin (Vitamin B12) 1,000 MCG Tab PO SCH (08:40)
[2020-08-10] MEDS: Cholecalciferol (Vitamin D3) 25 MCG Tab PO SCH (08:40)
[2020-08-10] MEDS: Acetaminophen 325 MG Tab PO PRN (11:56)
[2020-08-10] MEDS: BUPROPION 300 MG PO SCH (19:58)
[2020-08-10] MEDS: LEVOTHYROXINE SODIUM 137 MCG PO SCH (19:58)
[2020-08-10] MEDS: Simvastatin 10 MG Tab PO SCH (19:58)
[2020-08-10] MEDS: Ibuprofen 600 MG Tab PO PRN (19:59)
[2020-08-10] MEDS: Menthol/Methyl Salicylate 85 GM Tube TOP PRN (19:59)
[2020-08-11] MEDS: Acetaminophen 325 MG Tab PO PRN ×3 (05:38→17:59)
[2020-08-11] MEDS: Albuterol/Ipratropium 3.0-0.5 MG/3 ML Neb Soln NEB SCH ×4 (08:36→19:41)
[2020-08-11] MEDS: Fludrocortisone 0.1 MG Tab PO SCH ×2 (08:37→19:42)
[2020-08-11] MEDS: Citalopram 20 MG Tab PO SCH (08:37)
[2020-08-11] MEDS: Potassium Chloride 20 MEQ Tab.ER PO SCH ×4 (08:37→19:42)
[2020-08-11] MEDS: Furosemide 20 MG Tab PO SCH ×2 (08:37→17:58)
[2020-08-11] MEDS: Niacin 500 MG Tab PO SCH ×2 (08:38→17:58)
[2020-08-11] MEDS: Ferrous Sulfate 325 MG Tab PO SCH (08:38)
[2020-08-11] MEDS: Cholecalciferol (Vitamin D3) 25 MCG Tab PO SCH (08:39)
[2020-08-11] MEDS: Cyanocobalamin (Vitamin B12) 1,000 MCG Tab PO SCH (08:39)
[2020-08-11] MEDS: Calcium Carbonate 750 MG Tab.Chew PO SCH (08:39)
[2020-08-11] MEDS: Ibuprofen 600 MG Tab PO PRN ×2 (08:40→19:45)
[2020-08-11] MEDS: LEVOTHYROXINE SODIUM 137 MCG PO SCH (19:42)
[2020-08-11] MEDS: Simvastatin 10 MG Tab PO SCH (19:43)
[2020-08-11] MEDS: BUPROPION 300 MG PO SCH (19:43)
[2020-08-11] MEDS: Menthol/Methyl Salicylate 85 GM Tube TOP PRN (19:44)
[2020-08-12] MEDS: Potassium Chloride 20 MEQ Tab.ER PO SCH ×4 (08:07→19:31)
[2020-08-12] MEDS: Citalopram 20 MG Tab PO SCH (08:07)
[2020-08-12] MEDS: Furosemide 20 MG Tab PO SCH ×2 (08:07→17:50)
[2020-08-12] MEDS: Fludrocortisone 0.1 MG Tab PO SCH ×2 (08:07→19:31)
[2020-08-12] MEDS: Calcium Carbonate 750 MG Tab.Chew PO SCH (08:08)
[2020-08-12] MEDS: Albuterol/Ipratropium 3.0-0.5 MG/3 ML Neb Soln NEB SCH ×4 (08:08→19:34)
[2020-08-12] MEDS: Ferrous Sulfate 325 MG Tab PO SCH (08:09)
[2020-08-12] MEDS: Niacin 500 MG Tab PO SCH ×2 (08:09→17:50)
[2020-08-12] MEDS: Cholecalciferol (Vitamin D3) 25 MCG Tab PO SCH (08:10)
[2020-08-12] MEDS: Cyanocobalamin (Vitamin B12) 1,000 MCG Tab PO SCH (08:10)
[2020-08-12] MEDS: Ibuprofen 600 MG Tab PO PRN (08:11)
[2020-08-12] MEDS: Acetaminophen 325 MG Tab PO PRN ×2 (11:49→16:19)
[2020-08-12] MEDS: LEVOTHYROXINE SODIUM 137 MCG PO SCH (19:32)
[2020-08-12] MEDS: Simvastatin 10 MG Tab PO SCH (19:32)
[2020-08-12] MEDS: BUPROPION 300 MG PO SCH (19:32)
[2020-08-12] MEDS: Menthol/Methyl Salicylate 85 GM Tube TOP PRN (19:34)
[2020-08-13] MEDS: Fludrocortisone 0.1 MG Tab PO SCH ×2 (08:35→19:33)
[2020-08-13] MEDS: Potassium Chloride 20 MEQ Tab.ER PO SCH ×4 (08:35→19:33)
[2020-08-13] MEDS: Furosemide 20 MG Tab PO SCH ×3 (08:35→16:02)
[2020-08-13] MEDS: Citalopram 20 MG Tab PO SCH (08:35)
[2020-08-13] MEDS: Ferrous Sulfate 325 MG Tab PO SCH (08:37)
[2020-08-13] MEDS: Albuterol/Ipratropium 3.0-0.5 MG/3 ML Neb Soln NEB SCH ×4 (08:37→19:32)
[2020-08-13] MEDS: Niacin 500 MG Tab PO SCH ×2 (08:38→17:43)
[2020-08-13] MEDS: Calcium Carbonate 750 MG Tab.Chew PO SCH (08:38)
[2020-08-13] MEDS: Ibuprofen 600 MG Tab PO PRN ×2 (08:39→19:35)
[2020-08-13] MEDS: Cholecalciferol (Vitamin D3) 25 MCG Tab PO SCH (08:39)
[2020-08-13] MEDS: Cyanocobalamin (Vitamin B12) 1,000 MCG Tab PO SCH (08:39)
[2020-08-13] MEDS: Acetaminophen 325 MG Tab PO PRN ×2 (12:05→17:43)
[2020-08-13] MEDS: Simvastatin 10 MG Tab PO SCH (19:34)
[2020-08-13] MEDS: BUPROPION 300 MG PO SCH (19:34)
[2020-08-13] MEDS: LEVOTHYROXINE SODIUM 137 MCG PO SCH (19:34)
[2020-08-13] MEDS: Menthol/Methyl Salicylate 85 GM Tube TOP PRN (19:36)
[2020-08-14] MEDS: Potassium Chloride 20 MEQ Tab.ER PO SCH ×5 (08:48→19:32)
[2020-08-14] MEDS: Fludrocortisone 0.1 MG Tab PO SCH ×2 (08:49→19:32)
[2020-08-14] MEDS: Citalopram 20 MG Tab PO SCH (08:49)
[2020-08-14] MEDS: Albuterol/Ipratropium 3.0-0.5 MG/3 ML Neb Soln NEB SCH ×4 (08:50→19:32)
[2020-08-14] MEDS: Ferrous Sulfate 325 MG Tab PO SCH (08:51)
[2020-08-14] MEDS: Furosemide 20 MG Tab PO SCH ×3 (08:52→14:31)
[2020-08-14] MEDS: Niacin 500 MG Tab PO SCH ×2 (08:53→17:36)
[2020-08-14] MEDS: Calcium Carbonate 750 MG Tab.Chew PO SCH (08:54)
[2020-08-14] MEDS: Cholecalciferol (Vitamin D3) 25 MCG Tab PO SCH (08:55)
[2020-08-14] MEDS: Cyanocobalamin (Vitamin B12) 1,000 MCG Tab PO SCH (08:55)
[2020-08-14] MEDS: Ibuprofen 600 MG Tab PO PRN ×2 (08:57→19:33)
[2020-08-14] MEDS: Acetaminophen 325 MG Tab PO PRN (17:40)
[2020-08-14] MEDS: LEVOTHYROXINE SODIUM 137 MCG PO SCH (19:32)
[2020-08-14] MEDS: BUPROPION 300 MG PO SCH (19:33)
[2020-08-14] MEDS: Simvastatin 10 MG Tab PO SCH (19:33)
[2020-08-14] MEDS: Menthol/Methyl Salicylate 85 GM Tube TOP PRN (19:34)
[2020-08-15] MEDS: Albuterol/Ipratropium 3.0-0.5 MG/3 ML Neb Soln NEB SCH ×4 (07:34→19:36)
[2020-08-15] MEDS: Ferrous Sulfate 325 MG Tab PO SCH (07:39)
[2020-08-15] MEDS: Citalopram 20 MG Tab PO SCH (07:39)
[2020-08-15] MEDS: Fludrocortisone 0.1 MG Tab PO SCH ×2 (07:39→19:37)
[2020-08-15] MEDS: Potassium Chloride 20 MEQ Tab.ER PO SCH ×4 (07:39→19:37)
[2020-08-15] MEDS: Niacin 500 MG Tab PO SCH ×2 (07:40→17:03)
[2020-08-15] MEDS: Furosemide 20 MG Tab PO SCH ×2 (07:40→15:04)
[2020-08-15] MEDS: Cholecalciferol (Vitamin D3) 25 MCG Tab PO SCH (07:41)
[2020-08-15] MEDS: Calcium Carbonate 750 MG Tab.Chew PO SCH (07:41)
[2020-08-15] MEDS: Cyanocobalamin (Vitamin B12) 1,000 MCG Tab PO SCH (07:41)
[2020-08-15] MEDS: Ibuprofen 600 MG Tab PO PRN ×2 (11:05→19:39)
[2020-08-15] MEDS: Acetaminophen 325 MG Tab PO PRN (15:05)
[2020-08-15] MEDS: Bisacodyl 5 MG Tab PO PRN (15:11)
[2020-08-15] MEDS: Simvastatin 10 MG Tab PO SCH (19:38)
[2020-08-15] MEDS: BUPROPION 300 MG PO SCH (19:38)
[2020-08-15] MEDS: LEVOTHYROXINE SODIUM 137 MCG PO SCH (19:38)
[2020-08-15] MEDS: Menthol/Methyl Salicylate 85 GM Tube TOP PRN (19:40)
[2020-08-16] MEDS: Acetaminophen 325 MG Tab PO PRN ×3 (02:09→14:42)
[2020-08-16] MEDS: Furosemide 20 MG Tab PO SCH ×2 (08:39→14:41)
[2020-08-16] MEDS: Citalopram 20 MG Tab PO SCH (08:39)
[2020-08-16] MEDS: Fludrocortisone 0.1 MG Tab PO SCH ×2 (08:39→19:38)
[2020-08-16] MEDS: Potassium Chloride 20 MEQ Tab.ER PO SCH ×4 (08:39→19:38)
[2020-08-16] MEDS: Niacin 500 MG Tab PO SCH ×2 (08:41→19:37)
[2020-08-16] MEDS: Cholecalciferol (Vitamin D3) 25 MCG Tab PO SCH (08:41)
[2020-08-16] MEDS: Cyanocobalamin (Vitamin B12) 1,000 MCG Tab PO SCH (08:41)
[2020-08-16] MEDS: Calcium Carbonate 750 MG Tab.Chew PO SCH (08:42)
[2020-08-16] MEDS: Ferrous Sulfate 325 MG Tab PO SCH (08:45)
[2020-08-16] MEDS: Albuterol/Ipratropium 3.0-0.5 MG/3 ML Neb Soln NEB SCH ×4 (08:45→19:38)
[2020-08-16] MEDS: Ibuprofen 600 MG Tab PO PRN ×2 (08:46→19:40)
[2020-08-16] MEDS: LEVOTHYROXINE SODIUM 137 MCG PO SCH (19:38)
[2020-08-16] MEDS: BUPROPION 300 MG PO SCH (19:39)
[2020-08-16] MEDS: Simvastatin 10 MG Tab PO SCH (19:39)
[2020-08-16] MEDS: Menthol/Methyl Salicylate 85 GM Tube TOP PRN (19:40)
[2020-08-17] MEDS: Furosemide 20 MG Tab PO SCH ×2 (07:45→13:56)
[2020-08-17] MEDS: Potassium Chloride 20 MEQ Tab.ER PO SCH ×4 (07:45→19:37)
[2020-08-17] MEDS: Citalopram 20 MG Tab PO SCH (07:46)
[2020-08-17] MEDS: Fludrocortisone 0.1 MG Tab PO SCH ×2 (07:46→19:36)
[2020-08-17] MEDS: Albuterol/Ipratropium 3.0-0.5 MG/3 ML Neb Soln NEB SCH ×4 (07:46→19:41)
[2020-08-17] MEDS: Niacin 500 MG Tab PO SCH ×2 (07:47→17:16)
[2020-08-17] MEDS: Ferrous Sulfate 325 MG Tab PO SCH (07:47)
[2020-08-17] MEDS: Cyanocobalamin (Vitamin B12) 1,000 MCG Tab PO SCH (07:48)
[2020-08-17] MEDS: Calcium Carbonate 750 MG Tab.Chew PO SCH (07:48)
[2020-08-17] MEDS: Cholecalciferol (Vitamin D3) 25 MCG Tab PO SCH (07:49)
[2020-08-17] MEDS: Ibuprofen 600 MG Tab PO PRN ×2 (07:50→19:39)
[2020-08-17] MEDS: LEVOTHYROXINE SODIUM 137 MCG PO SCH (19:37)
[2020-08-17] MEDS: BUPROPION 300 MG PO SCH (19:37)
[2020-08-17] MEDS: Simvastatin 10 MG Tab PO SCH (19:38)
[2020-08-17] MEDS: Menthol/Methyl Salicylate 85 GM Tube TOP PRN (19:40)
[2020-08-18] MEDS: Furosemide 20 MG Tab PO SCH ×2 (08:50→18:55)
[2020-08-18] MEDS: Fludrocortisone 0.1 MG Tab PO SCH ×2 (08:50→19:32)
[2020-08-18] MEDS: Albuterol/Ipratropium 3.0-0.5 MG/3 ML Neb Soln NEB SCH ×3 (08:50→19:32)
[2020-08-18] MEDS: Potassium Chloride 20 MEQ Tab.ER PO SCH ×3 (08:50→19:33)
[2020-08-18] MEDS: Citalopram 20 MG Tab PO SCH (08:50)
[2020-08-18] MEDS: Ibuprofen 600 MG Tab PO PRN (08:51)
[2020-08-18] MEDS: Niacin 500 MG Tab PO SCH ×2 (08:52→18:55)
[2020-08-18] MEDS: Cyanocobalamin (Vitamin B12) 1,000 MCG Tab PO SCH (08:53)
[2020-08-18] MEDS: Ferrous Sulfate 325 MG Tab PO SCH (08:53)
[2020-08-18] MEDS: Calcium Carbonate 750 MG Tab.Chew PO SCH (08:54)
[2020-08-18] MEDS: Cholecalciferol (Vitamin D3) 25 MCG Tab PO SCH (08:56)
[2020-08-18] MEDS: LEVOTHYROXINE SODIUM 137 MCG PO SCH (19:33)
[2020-08-18] MEDS: Simvastatin 10 MG Tab PO SCH (19:33)
[2020-08-18] MEDS: BUPROPION 300 MG PO SCH (19:33)
[2020-08-19] MEDS: Citalopram 20 MG Tab PO SCH (07:41)
[2020-08-19] MEDS: Albuterol/Ipratropium 3.0-0.5 MG/3 ML Neb Soln NEB SCH ×4 (07:41→19:13)
[2020-08-19] MEDS: Potassium Chloride 20 MEQ Tab.ER PO SCH ×4 (07:42→19:13)
[2020-08-19] MEDS: Fludrocortisone 0.1 MG Tab PO SCH ×2 (07:42→19:13)
[2020-08-19] MEDS: Ferrous Sulfate 325 MG Tab PO SCH (07:42)
[2020-08-19] MEDS: Furosemide 20 MG Tab PO SCH ×2 (07:42→14:22)
[2020-08-19] MEDS: Cholecalciferol (Vitamin D3) 25 MCG Tab PO SCH (07:43)
[2020-08-19] MEDS: Calcium Carbonate 750 MG Tab.Chew PO SCH (07:43)
[2020-08-19] MEDS: Cyanocobalamin (Vitamin B12) 1,000 MCG Tab PO SCH (07:43)
[2020-08-19] MEDS: Niacin 500 MG Tab PO SCH ×2 (07:43→17:05)
[2020-08-19] MEDS: Ibuprofen 600 MG Tab PO PRN (11:17)
[2020-08-19] MEDS: Acetaminophen 325 MG Tab PO PRN (17:06)
[2020-08-19] MEDS: Simvastatin 10 MG Tab PO SCH (19:13)
[2020-08-19] MEDS: LEVOTHYROXINE SODIUM 137 MCG PO SCH (19:13)
[2020-08-19] MEDS: BUPROPION 300 MG PO SCH (19:13)
[2020-08-20] MEDS: Albuterol/Ipratropium 3.0-0.5 MG/3 ML Neb Soln NEB SCH ×4 (07:32→19:09)
[2020-08-20] MEDS: Potassium Chloride 20 MEQ Tab.ER PO SCH ×4 (07:33→19:10)
[2020-08-20] MEDS: Ferrous Sulfate 325 MG Tab PO SCH (07:33)
[2020-08-20] MEDS: Fludrocortisone 0.1 MG Tab PO SCH ×2 (07:33→19:10)
[2020-08-20] MEDS: Citalopram 20 MG Tab PO SCH (07:33)
[2020-08-20] MEDS: Furosemide 20 MG Tab PO SCH ×2 (07:34→13:18)
[2020-08-20] MEDS: Niacin 500 MG Tab PO SCH ×2 (07:34→17:04)
[2020-08-20] MEDS: Cholecalciferol (Vitamin D3) 25 MCG Tab PO SCH (07:35)
[2020-08-20] MEDS: Cyanocobalamin (Vitamin B12) 1,000 MCG Tab PO SCH (07:35)
[2020-08-20] MEDS: Calcium Carbonate 750 MG Tab.Chew PO SCH (07:35)
[2020-08-20] MEDS: Acetaminophen 325 MG Tab PO PRN ×2 (07:35→15:08)
[2020-08-20] MEDS: Bisacodyl 5 MG Tab PO PRN (08:57)
[2020-08-20] MEDS: Ibuprofen 600 MG Tab PO PRN (11:05)
[2020-08-20] MEDS: BUPROPION 300 MG PO SCH (19:10)
[2020-08-20] MEDS: LEVOTHYROXINE SODIUM 137 MCG PO SCH (19:10)
[2020-08-20] MEDS: Simvastatin 10 MG Tab PO SCH (19:11)
[2020-08-21] MEDS: Acetaminophen 325 MG Tab PO PRN (07:45)
[2020-08-21] MEDS: Albuterol/Ipratropium 3.0-0.5 MG/3 ML Neb Soln NEB SCH ×4 (07:45→19:28)
[2020-08-21] MEDS: Citalopram 20 MG Tab PO SCH (07:46)
[2020-08-21] MEDS: Furosemide 20 MG Tab PO SCH ×2 (07:46→15:03)
[2020-08-21] MEDS: Fludrocortisone 0.1 MG Tab PO SCH ×2 (07:46→19:29)
[2020-08-21] MEDS: Ferrous Sulfate 325 MG Tab PO SCH (07:46)
[2020-08-21] MEDS: Potassium Chloride 20 MEQ Tab.ER PO SCH ×4 (07:46→19:29)
[2020-08-21] MEDS: Niacin 500 MG Tab PO SCH ×2 (07:47→17:09)
[2020-08-21] MEDS: Cyanocobalamin (Vitamin B12) 1,000 MCG Tab PO SCH (07:47)
[2020-08-21] MEDS: Calcium Carbonate 750 MG Tab.Chew PO SCH (07:47)
[2020-08-21] MEDS: Cholecalciferol (Vitamin D3) 25 MCG Tab PO SCH (07:48)
[2020-08-21] MEDS: Ibuprofen 600 MG Tab PO PRN ×2 (11:16→19:31)
[2020-08-21] MEDS: LEVOTHYROXINE SODIUM 137 MCG PO SCH (19:29)
[2020-08-21] MEDS: BUPROPION 300 MG PO SCH (19:30)
[2020-08-21] MEDS: Simvastatin 10 MG Tab PO SCH (19:30)
[2020-08-21] MEDS: Menthol/Methyl Salicylate 85 GM Tube TOP PRN (19:32)
[2020-08-22] MEDS: Potassium Chloride 20 MEQ Tab.ER PO SCH ×4 (08:34→19:25)
[2020-08-22] MEDS: Fludrocortisone 0.1 MG Tab PO SCH ×2 (08:34→19:25)
[2020-08-22] MEDS: Citalopram 20 MG Tab PO SCH (08:34)
[2020-08-22] MEDS: Furosemide 20 MG Tab PO SCH ×3 (08:35→14:13)
[2020-08-22] MEDS: Albuterol/Ipratropium 3.0-0.5 MG/3 ML Neb Soln NEB SCH ×4 (08:35→19:25)
[2020-08-22] MEDS: Ferrous Sulfate 325 MG Tab PO SCH (08:36)
[2020-08-22] MEDS: Niacin 500 MG Tab PO SCH ×2 (08:36→19:25)
[2020-08-22] MEDS: Cyanocobalamin (Vitamin B12) 1,000 MCG Tab PO SCH (08:37)
[2020-08-22] MEDS: Cholecalciferol (Vitamin D3) 25 MCG Tab PO SCH (08:37)
[2020-08-22] MEDS: Calcium Carbonate 750 MG Tab.Chew PO SCH (08:37)
[2020-08-22] MEDS: Ibuprofen 600 MG Tab PO PRN ×2 (08:39→19:27)
[2020-08-22] MEDS: LEVOTHYROXINE SODIUM 137 MCG PO SCH (19:26)
[2020-08-22] MEDS: Simvastatin 10 MG Tab PO SCH (19:26)
[2020-08-22] MEDS: BUPROPION 300 MG PO SCH (19:26)
[2020-08-23] MEDS: Albuterol/Ipratropium 3.0-0.5 MG/3 ML Neb Soln NEB SCH ×4 (08:16→19:12)
[2020-08-23] MEDS: Citalopram 20 MG Tab PO SCH (08:17)
[2020-08-23] MEDS: Fludrocortisone 0.1 MG Tab PO SCH ×2 (08:17→19:13)
[2020-08-23] MEDS: Furosemide 20 MG Tab PO SCH ×2 (08:17→14:35)
[2020-08-23] MEDS: Potassium Chloride 20 MEQ Tab.ER PO SCH ×4 (08:17→19:13)
[2020-08-23] MEDS: Ferrous Sulfate 325 MG Tab PO SCH (08:18)
[2020-08-23] MEDS: Niacin 500 MG Tab PO SCH ×2 (08:19→17:54)
[2020-08-23] MEDS: Calcium Carbonate 750 MG Tab.Chew PO SCH (08:19)
[2020-08-23] MEDS: Cyanocobalamin (Vitamin B12) 1,000 MCG Tab PO SCH (08:20)
[2020-08-23] MEDS: Cholecalciferol (Vitamin D3) 25 MCG Tab PO SCH (08:20)
[2020-08-23] MEDS: Acetaminophen 325 MG Tab PO PRN ×2 (08:21→14:35)
[2020-08-23] MEDS: BUPROPION 300 MG PO SCH (19:14)
[2020-08-23] MEDS: LEVOTHYROXINE SODIUM 137 MCG PO SCH (19:14)
[2020-08-23] MEDS: Simvastatin 10 MG Tab PO SCH (19:14)
[2020-08-24] MEDS: Fludrocortisone 0.1 MG Tab PO SCH ×2 (07:58→19:38)
[2020-08-24] MEDS: Citalopram 20 MG Tab PO SCH (07:59)
[2020-08-24] MEDS: Albuterol/Ipratropium 3.0-0.5 MG/3 ML Neb Soln NEB SCH ×4 (07:59→19:38)
[2020-08-24] MEDS: Potassium Chloride 20 MEQ Tab.ER PO SCH ×4 (07:59→19:39)
[2020-08-24] MEDS: Furosemide 20 MG Tab PO SCH ×2 (07:59→14:23)
[2020-08-24] MEDS: Calcium Carbonate 750 MG Tab.Chew PO SCH (08:00)
[2020-08-24] MEDS: Ferrous Sulfate 325 MG Tab PO SCH (08:00)
[2020-08-24] MEDS: Niacin 500 MG Tab PO SCH ×2 (08:00→17:03)
[2020-08-24] MEDS: Cholecalciferol (Vitamin D3) 25 MCG Tab PO SCH (08:01)
[2020-08-24] MEDS: Cyanocobalamin (Vitamin B12) 1,000 MCG Tab PO SCH (08:02)
[2020-08-24] MEDS: LEVOTHYROXINE SODIUM 137 MCG PO SCH (19:39)
[2020-08-24] MEDS: BUPROPION 300 MG PO SCH (19:39)
[2020-08-24] MEDS: Simvastatin 10 MG Tab PO SCH (19:40)
[2020-08-24] MEDS: Ibuprofen 600 MG Tab PO PRN (19:41)
[2020-08-24] MEDS: Menthol/Methyl Salicylate 85 GM Tube TOP PRN (19:41)
[2020-08-25] MEDS: Furosemide 20 MG Tab PO SCH ×2 (08:47→14:52)
[2020-08-25] MEDS: Potassium Chloride 20 MEQ Tab.ER PO SCH ×4 (08:47→19:20)
[2020-08-25] MEDS: Fludrocortisone 0.1 MG Tab PO SCH ×2 (08:47→19:20)
[2020-08-25] MEDS: Citalopram 20 MG Tab PO SCH (08:48)
[2020-08-25] MEDS: Ibuprofen 600 MG Tab PO PRN ×2 (08:48→19:21)
[2020-08-25] MEDS: Albuterol/Ipratropium 3.0-0.5 MG/3 ML Neb Soln NEB SCH ×4 (08:49→19:19)
[2020-08-25] MEDS: Niacin 500 MG Tab PO SCH ×2 (08:50→17:52)
[2020-08-25] MEDS: Ferrous Sulfate 325 MG Tab PO SCH (08:50)
[2020-08-25] MEDS: Cyanocobalamin (Vitamin B12) 1,000 MCG Tab PO SCH (08:51)
[2020-08-25] MEDS: Calcium Carbonate 750 MG Tab.Chew PO SCH (08:51)
[2020-08-25] MEDS: Cholecalciferol (Vitamin D3) 25 MCG Tab PO SCH (08:51)
[2020-08-25] MEDS: Acetaminophen 325 MG Tab PO PRN (11:53)
[2020-08-25] MEDS: Simvastatin 10 MG Tab PO SCH (19:20)
[2020-08-25] MEDS: LEVOTHYROXINE SODIUM 137 MCG PO SCH (19:20)
[2020-08-25] MEDS: BUPROPION 300 MG PO SCH (19:20)
[2020-08-25] MEDS: Menthol/Methyl Salicylate 85 GM Tube TOP PRN (19:22)
[2020-08-26] MEDS: Citalopram 20 MG Tab PO SCH (07:56)
[2020-08-26] MEDS: Fludrocortisone 0.1 MG Tab PO SCH ×2 (07:56→19:28)
[2020-08-26] MEDS: Furosemide 20 MG Tab PO SCH ×2 (07:56→13:02)
[2020-08-26] MEDS: Potassium Chloride 20 MEQ Tab.ER PO SCH ×4 (07:56→19:28)
[2020-08-26] MEDS: Calcium Carbonate 750 MG Tab.Chew PO SCH (07:57)
[2020-08-26] MEDS: Albuterol/Ipratropium 3.0-0.5 MG/3 ML Neb Soln NEB SCH ×4 (07:57→19:28)
[2020-08-26] MEDS: Ferrous Sulfate 325 MG Tab PO SCH (07:57)
[2020-08-26] MEDS: Niacin 500 MG Tab PO SCH ×2 (07:58→17:18)
[2020-08-26] MEDS: Cyanocobalamin (Vitamin B12) 1,000 MCG Tab PO SCH (07:59)
[2020-08-26] MEDS: Cholecalciferol (Vitamin D3) 25 MCG Tab PO SCH (07:59)
[2020-08-26] MEDS: Acetaminophen 325 MG Tab PO PRN (08:01)
[2020-08-26] MEDS: LEVOTHYROXINE SODIUM 137 MCG PO SCH (19:28)
[2020-08-26] MEDS: BUPROPION 300 MG PO SCH (19:29)
[2020-08-26] MEDS: Menthol/Methyl Salicylate 85 GM Tube TOP PRN (19:29)
[2020-08-26] MEDS: Simvastatin 10 MG Tab PO SCH (19:29)
[2020-08-26] MEDS: Ibuprofen 600 MG Tab PO PRN (19:30)
[2020-08-27] MEDS: Albuterol/Ipratropium 3.0-0.5 MG/3 ML Neb Soln NEB SCH ×4 (07:29→19:41)
[2020-08-27] MEDS: Citalopram 20 MG Tab PO SCH (07:30)
[2020-08-27] MEDS: Furosemide 20 MG Tab PO SCH ×2 (07:30→13:08)
[2020-08-27] MEDS: Potassium Chloride 20 MEQ Tab.ER PO SCH ×4 (07:31→19:41)
[2020-08-27] MEDS: Fludrocortisone 0.1 MG Tab PO SCH ×2 (07:32→19:41)
[2020-08-27] MEDS: Niacin 500 MG Tab PO SCH ×2 (07:32→17:28)
[2020-08-27] MEDS: Ferrous Sulfate 325 MG Tab PO SCH (07:32)
[2020-08-27] MEDS: Cyanocobalamin (Vitamin B12) 1,000 MCG Tab PO SCH (07:33)
[2020-08-27] MEDS: Cholecalciferol (Vitamin D3) 25 MCG Tab PO SCH (07:33)
[2020-08-27] MEDS: Calcium Carbonate 750 MG Tab.Chew PO SCH (07:33)
[2020-08-27] MEDS: Acetaminophen 325 MG Tab PO PRN (07:34)
[2020-08-27] MEDS: LEVOTHYROXINE SODIUM 137 MCG PO SCH (19:41)
[2020-08-27] MEDS: Simvastatin 10 MG Tab PO SCH (19:42)
[2020-08-27] MEDS: Ibuprofen 600 MG Tab PO PRN (19:42)
[2020-08-27] MEDS: BUPROPION 300 MG PO SCH (19:42)
[2020-08-27] MEDS: Menthol/Methyl Salicylate 85 GM Tube TOP PRN (19:43)
[2020-08-28] MEDS: Furosemide 20 MG Tab PO SCH ×2 (07:50→14:58)
[2020-08-28] MEDS: Citalopram 20 MG Tab PO SCH (07:50)
[2020-08-28] MEDS: Potassium Chloride 20 MEQ Tab.ER PO SCH ×4 (07:50→19:26)
[2020-08-28] MEDS: Fludrocortisone 0.1 MG Tab PO SCH ×2 (07:51→19:26)
[2020-08-28] MEDS: Ferrous Sulfate 325 MG Tab PO SCH (07:51)
[2020-08-28] MEDS: Calcium Carbonate 750 MG Tab.Chew PO SCH (07:52)
[2020-08-28] MEDS: Cyanocobalamin (Vitamin B12) 1,000 MCG Tab PO SCH (07:52)
[2020-08-28] MEDS: Niacin 500 MG Tab PO SCH ×2 (07:52→17:31)
[2020-08-28] MEDS: Cholecalciferol (Vitamin D3) 25 MCG Tab PO SCH (07:53)
[2020-08-28] MEDS: Albuterol/Ipratropium 3.0-0.5 MG/3 ML Neb Soln NEB SCH ×4 (07:55→19:25)
[2020-08-28] MEDS: LEVOTHYROXINE SODIUM 137 MCG PO SCH (19:26)
[2020-08-28] MEDS: BUPROPION 300 MG PO SCH (19:26)
[2020-08-28] MEDS: Simvastatin 10 MG Tab PO SCH (19:27)
[2020-08-28] MEDS: Ibuprofen 600 MG Tab PO PRN (19:27)
[2020-08-28] MEDS: Menthol/Methyl Salicylate 85 GM Tube TOP PRN (19:29)
[2020-08-29] MEDS: Potassium Chloride 20 MEQ Tab.ER PO SCH ×4 (08:20→19:19)
[2020-08-29] MEDS: Citalopram 20 MG Tab PO SCH (08:21)
[2020-08-29] MEDS: Fludrocortisone 0.1 MG Tab PO SCH ×2 (08:21→19:19)
[2020-08-29] MEDS: Albuterol/Ipratropium 3.0-0.5 MG/3 ML Neb Soln NEB SCH ×4 (08:21→19:19)
[2020-08-29] MEDS: Furosemide 20 MG Tab PO SCH ×2 (08:21→14:07)
[2020-08-29] MEDS: Ferrous Sulfate 325 MG Tab PO SCH (08:22)
[2020-08-29] MEDS: Calcium Carbonate 750 MG Tab.Chew PO SCH (08:22)
[2020-08-29] MEDS: Niacin 500 MG Tab PO SCH ×2 (08:22→18:04)
[2020-08-29] MEDS: Cholecalciferol (Vitamin D3) 25 MCG Tab PO SCH (08:23)
[2020-08-29] MEDS: Cyanocobalamin (Vitamin B12) 1,000 MCG Tab PO SCH (08:23)
[2020-08-29] MEDS: Ibuprofen 600 MG Tab PO PRN ×2 (08:25→19:23)
--- NOTE | 2020-08-29 09:47 | PCM.PN ---
- General Info Date of Service: 08/29/20 Admission Dx/Problem (Free Text): 1. Myotonic dystrophy with secondary weakness 2. CHF 3. O2 dependent COPD Functional Status: Reports: Pain Controlled, Tolerating Diet, Ambulating (Cyst), Urinating, New Symptoms (Occasional recurrent chronic headache) Pain Score: 3 (Headache as above) - Review of Systems General: Reports: Weakness (Stable chronic), Fatigue (Stable chronic), Appetite (Adequate). Denies: Fever, Malaise, Chills, Night Sweats HEENT: Reports: Headaches. Denies: Visual Changes Pulmonary: Reports: No Symptoms. Denies: Shortness of Breath, Cough Cardiovascular: Reports: Edema (Stable dependent). Denies: Chest Pain, Dyspnea on Exertion, Lightheadedness Gastrointestinal: Reports: No Symptoms, Other (Normal bowel movement yesterday by patient history). Denies: Abdominal Pain, Constipation, Decreased Appetite, Diarrhea, Difficulty Swallowing, Flatus, Hematochezia, Melena, Nausea, Vomiting Genitourinary: Reports: No Symptoms Musculoskeletal: Reports: No Symptoms Skin: Reports: No Symptoms. Denies: Diaphoresis Neurological: Reports: Difficulty Walking (Stable chronic), Weakness (Stable chronic) Psychiatric: Reports: Depression (Stable mild), Anxiety (Stable mild). Denies: Confusion, Agitation, Cravings, Hallucinations - Patient Data Vitals - Most Recent: Last Vital Signs Temp 36.4 C 08/29/20 08:00 Pulse 61 08/29/20 08:00 Resp 20 08/29/20 08:00 BP 117/69 08/29/20 08:00 Pulse Ox 98 08/29/20 08:00 Weight - Most Recent: 83.869 kg (Stable) I&O - Last 24 Hours: Intake & Output 08/28/20 08/29/20 08/29/20 22:59 06:59 14:59 Intake Total 507 360 Balance 507 360 Imaging Impressions - Last 24 Hours: None Lab Results Last 24 Hours: Laboratory Results - last 24 hr 08/29/20 08/29/20 Range/Units 10:10 10:10 WBC 5.8 (4.0-10.2) K/uL RBC 3.98 (3.77-5.09) M/uL Hgb 13.3 (11.7-15.5) g/dL Hct 41.2 (34.0-46.0) % MCV 103.5 H (84.0-98.0) fL MCH 33.4 H (28.2-33.3) pg MCHC 32.3 (31.7-36.0) g/dL RDW 13.7 (11.2-14.1) % Plt Count 123 L (150-350) K/uL Neut % (Auto) 60.6 (45.0-80.0) % Lymph % (Auto) 26.7 (10.0-50.0) % [place] % (Auto) 5.6 (2.0-14.0) % Eos % (Auto) 6.6 H (0.0-5.0) % Baso % (Auto) 0.5 (0.0-2.0) % Neut # (Auto) 3.49 (1.40-7.00) K/uL Lymph # (Auto) 1.54 (0.50-3.50) K/uL [place] # (Auto) 0.32 (0.00-1.00) K/uL Eos # (Auto) 0.38 (0.00-0.50) K/uL Baso # (Auto) 0.03 (0.00-0.20) K/uL Sodium 145 (136-145) mmol/L Potassium 3.7 (3.5-5.1) mmol/L Chloride 108 H (98-107) mmol/L Carbon Dioxide 30.8 (21.0-32.0) mmol/L BUN 14 (7-18) mg/dL Creatinine 0.54 (0.51-1.17) mg/dL Est Cr Clr Drug Dosing 105.58 mL/min Estimated GFR (MDRD) > 60 mL/min Glucose 108 H (74-106) mg/dL Calcium 9.2 (8.5-10.1) mg/dL Total Bilirubin 0.4 (0.2-1.0) mg/dL AST 27 (15-37) U/L ALT 51 (12-78) U/L Alkaline Phosphatase 141 H (46-116) IU/L Creatine Kinase 90 (26-308) U/L Creatine Kinase Index 1.4 (0.0-2.5) % CK-MB (CK-2) 1.30 (0.00-3.60) ng/mL Troponin I 0.000 (0.000-0.056) ng/mL NT-Pro-B Natriuret Pep 68 (0-125) pg/mL Total Protein 5.6 L (6.4-8.2) g/dL Albumin 2.9 L (3.4-5.0) g/dL Sandor Results Last 24 Hours: None Med Orders - Current: Current Medications Acetaminophen (Tylenol) 650 mg PO Q4H PRN PRN Reason: Pain Last Admin: 08/27/20 07:34 Dose: 650 mg Documented by: Al Hydroxide/Mg Hydroxide (Mag-Al Plus) 30 ml PO Q4H PRN PRN Reason: Indigestion Last Admin: 08/08/20 09:23 Dose: 30 ml Documented by: Albuterol/Ipratropium (Duoneb 3.0-0.5 Mg/3 Ml) 3 ml NEB Q4HRRT PRN PRN Reason: Dyspnea Last Admin: 07/04/20 08:04 Dose: 3 ml Documented by: Albuterol/Ipratropium (Duoneb 3.0-0.5 Mg/3 Ml) 3 ml NEB QIDRT [facility] Last Admin: 08/29/20 08:21 Dose: 3 ml Documented by: Bisacodyl (Dulcolax) 5 mg PO DAILY PRN PRN Reason: Constipation Last Admin: 08/20/20 08:57 Dose: 5 mg Documented by: Calcium Carbonate/Glycine (Tums Extra Strength) 1,500 mg PO DAILY [facility] Last Admin: 08/29/20 08:22 Dose: 1,500 mg Documented by: Cholecalciferol (Vitamin D3) 25 mcg PO DAILY [facility] Last Admin: 08/29/20 08:23 Dose: 25 mcg Documented by: Citalopram [facility] ([facility]lexa) [facility] [place] [facility] Admin: 08/29/20 08:21 Dose: 20 mg Documented by: Cyanocobalamin (Vitamin B12) 1,000 mcg PO QAM [facility] Last Admin: 08/29/20 08:23 Dose: 1,000 mcg Documented by: Ferrous Sulfate (Ferrous Sulfate) 325 mg PO WITHBREAKFAST [facility] Last Admin: 08/29/20 08:22 Dose: 325 mg Documented by: Fludrocortisone Acetate (Florinef) 0.1 mg PO BEDTIME [facility] Last Admin: 08/28/20 19:26 Dose: 0.1 mg Documented by: Fludrocortisone Acetate (Florinef) 0.2 mg PO QAM [facility] Last Admin: 08/29/20 08:21 Dose: 0.2 mg Documented by: Furosemide (Lasix) 20 mg PO BID@08,1400 [facility] Last Admin: 08/29/20 08:21 Dose: 20 mg Documented by: Guaifenesin/Dextromethorphan (Robitussin Dm) 10 ml PO Q4H PRN PRN Reason: Cough Ibuprofen (Motrin) 600 mg PO Q6H PRN PRN Reason: Breakthrough Pain Last Admin: 08/29/20 08:25 Dose: 600 mg Documented by: Magnesium Hydroxide (Milk Of Magnesia) 30 ml PO DAILY PRN PRN Reason: Constipation Last Admin: 06/07/20 11:33 Dose: 30 ml Documented by: Methyl Salicylate (Icy Hot Cream) 1 gm TOP QID PRN PRN Reason: Pain (mild 1-3) Last Admin: 08/28/20 19:29 Dose: 1 applic Documented by: Niacin (Niacin) 500 mg PO BID [facility] Last Admin: 08/29/20 08:22 Dose: 500 mg Documented by: Levothyroxine Sodium (137 Mcg Tablets) 137 mcg PO BEDTIME [facility] Last Admin: 08/28/20 19:26 Dose: 137 mcg Documented by: Bupropion Xl 300mg (Tablets) 1 each PO BEDTIME [facility] Last Admin: 08/28/20 19:26 Dose: 1 each Documented by: Potassium Chloride (Klor-Con M20) 40 meq PO QID [facility] Last Admin: 08/29/20 08:20 Dose: 40 meq Documented by: Simvastatin (Zocor) 10 mg PO BEDTIME [facility] Last Admin: 08/28/20 19:27 Dose: 10 mg Documented by: Discontinued Medications Furosemide (Lasix) 20 mg PO BID [facility] Last Admin: 08/14/20 08:52 Dose: 20 mg Documented by: - Exam Quality Assessment: Supplemental Oxygen, DVT Prophylaxis. No: Central Line/PICC, Urine Catheter, Skin Breakdown, Restraints General: Alert, Oriented, Cooperative, No Acute Distress HEENT: Pupils Equal, Pupils Reactive, EOMI, Mucous Membr. Moist/[place] Neck: Supple, Trachea Midline, No JVD, No Thyromegaly, +2 Carotid Pulse wo Bruit. No: Lymphadenopathy Lungs: Normal Respiratory Effort, Rales (Stable mild bilateral basilar). No: Rub Cardiovascular: Regular Rate, Regular Rhythm, No Murmurs. No: Gallops, Rubs GI/Abdominal Exam: Normal Bowel Sounds, Soft, Non-Tender, No Organomegaly, No Distention, No Abnormal Bruit, No Mass, Other (Obese). No: Guarding (Female) Exam: Deferred Back Exam: Normal Inspection, Full Range of Motion. No: CVA Tenderness (L), CVA Tenderness (R), Muscle Spasm Extremities: Normal Range of Motion, Non-Tender, Normal Capillary Refill, Pedal Edema (Stable mild lymphedema of the lower extremities with Xavier wrap dressings not present today while patient is still in bed.) Peripheral Pulses: 2+: Radial (L), Radial (R) Skin: Warm, Dry, Intact. No: Ecchymosis Neurological: No New Focal Deficit, Other (Stable chronic generalized weakness) Psy/Mental Status: Anxious (Mild), Depressed (Mild). No: Agitated, Withdrawal Symptoms Sepsis Event Note - Evaluation Sepsis Screening Result: No Definite Risk - Focused Exam Vital Signs: Vital Signs Temp Pulse Resp BP Pulse Ox 08/29/20 08:00 36.4 C 61 20 117/69 98 - Problem List & Annotations (1) Steinert myotonic dystrophy syndrome SNOMED Code(s): 22274674 Code(s): G71.11 - MYOTONIC MUSCULAR DYSTROPHY Status: Chronic Priority: Medium Current Visit: Yes Annotation/Comment:: Stable by history and today's exam. Physical therapy in effect. Continue current medical therapy. Note normal CK and CK-MB today. (2) CHF, Congestive heart failure SNOMED Code(s): 00397918 Code(s): I50.9 - HEART FAILURE, UNSPECIFIED Status: Chronic Priority: Medium Current Visit: Yes Annotation/Comment:: No recent chest pain or anginal type symptoms. Note previous progressive nonspecific bilateral lower lobe atelectasis versus nonspecific changes, right greater than left, with CT scan of the chest performed on 12/29/19. Chest x-ray, PA and lateral, on 04/25/20 showed stable bilateral lower lobe atelectasis with no significant evidence of CHF. Previous CT scan in December as above did show evidence of atelectasis and mild pleural effusions consistent with CHF. No significant CHF by clinical exam today. Yearly blood work, EKG, chest x-ray, etc. were conducted on 04/25/20. Improved/stable lateral wall cardiac ischemia by EKG since April 2019 with resolved first-degree AV block and stable complete bifascicular bundle-branch block. Stable dependent edema with the patient having a stable weight today and previously intentionally losing 13.7 kg. Note previous dietary noncompliance, however much improved. Previous discontinuation of high protein Glucerna supplements as snacks secondary to her previous weight gain. Dietary consultation in effect. Activity level is overall low. An echocardiogram had also been performed on 12/28/19 with excellent ejection fraction of 5060 percent.The patient's CODE STATUS was previously addressed per request from the nursing staff with the patient wishing to continue to be a FULL CODE. Continue to observe closely. Note previous history of PVCs, complete right bundle branch block/bifascicular bundle-branch block, first-degree AV block, severe dyslipidemia hypokalemia, hypophosphatemia, and hyponatremia. Mild persistent hypertriglyceridemia with borderline hypernatremia on 04/25. Note normal magnesium on the potassium, and phosphate levels on 04/25. Continue to observe for now with no further change in medical therapy. Further cardiology workup and/or consultation depending on her clinical course. Note Increase of her Lasix therapy, etc. on 12/21 with overall good clinical results. Blood work today was reviewed with normal CK, CK-MB, troponin I, and BNP. Repeat blood work in 4 months. (3) Tardive dyskinesia SNOMED Code(s): 337284023 Code(s): G24.01 - DRUG INDUCED SUBACUTE DYSKINESIA Status: Chronic Priority: Medium Current Visit: Yes Annotation/Comment:: Stable by history. Her perioral tardive dyskinesia actually increased after discontinuation of previous chronic Reglan therapy with no other aggravating medications noted. Neurological status is otherwise stable. Note that patient does have complete dentures uppers and lowers, which does tend to aggravate her problem. No significant clinical relevance at this time with no change in medical therapy for now. (4) COPD (chronic obstructive pulmonary disease) SNOMED Code(s): 06716418 Code(s): J44.9 - CHRONIC OBSTRUCTIVE PULMONARY DISEASE, UNSPECIFIED Status: Chronic Priority: Medium Current Visit: Yes Qualifiers: COPD type: emphysema Emphysema type: panlobular Qualified Code(s): J43.1 - Panlobular emphysema Annotation/Comment:: As above. O2 dependent COPD stable by history with no bronchitic symptoms at this time. Continue current medical therapy. Note chronic bilateral lower lobe atelectasis with incentive spirometry and current O2 therapy at 3 L/m by nasal cannula. No evidence of pneumonia or significant bronchitis despite chest x-ray report on 04/25/20. Patient does have a previous history of distant postoperative respiratory distress, although no complications after previous dental surgery. (5) Hyperlipidemia SNOMED Code(s): 56462007 Code(s): E78.5 - HYPERLIPIDEMIA, UNSPECIFIED Status: Chronic Priority: Medium Current Visit: Yes Annotation/Comment:: As above. Previous history of severe dyslipidemia with aggressive medical therapy at this time. Dietary compliance has improved with intentional weight loss as above. No change in medical therapy for now with previous history of CPK elevation. (6) Hypothyroidism SNOMED Code(s): 73695915 Code(s): E03.9 - HYPOTHYROIDISM, UNSPECIFIED Status: Chronic Priority: Medium Current Visit: Yes Annotation/Comment:: TSH normal on 04/25/20. No other thyroid type symptoms. (7) Mixed anxiety and depressive disorder SNOMED Code(s): 881255724 Code(s): F41.8 - OTHER SPECIFIED ANXIETY DISORDERS Status: Chronic Priority: Medium Current Visit: Yes Annotation/Comment:: Stable by history from the patient and nursing staff, although mild persistent anxious and depressive affect today. Observe for now. Previous worsening of her anxiety depression disorder with Wellbutrin SR therapy increased on 12/21/19. By my clinical evaluation her symptoms have improved since that time, although she still needs to be watched closely by nursing staff, etc.. Patient is still relatively active with physical therapy, however she is still often alone in her room. The patient was once again encouraged to become more active with social activities, etc. with nursing staff also encouraged to help the patient be more interactive. (8) Osteoarthritis SNOMED Code(s): 858475171 Code(s): M19.90 - UNSPECIFIED OSTEOARTHRITIS, UNSPECIFIED SITE Status: Chronic Priority: Medium Current Visit: Yes Annotation/Comment:: Occasional nonspecific generalized arthralgias with muscle rub, etc. already ordered. Observe this and her chronic headaches for now. Note previous discontinuation of Ultram. PT in effect as above. Note status post bilateral ankle ORIF secondary to fractures. Previous recurrent falls in February 2019 have improved with no recent significant falls or injuries. (9) Vitamin B12 deficiency (non anemic) SNOMED Code(s): 51551961 Code(s): E53.8 - DEFICIENCY OF OTHER SPECIFIED B GROUP VITAMINS Status: Chronic Priority: Medium Current Visit: No Annotation/Comment:: Persistent macrocytosis as above with normal folic acid and vitamin B 12 level on 04/25/2020. Observe for now. (10) Hypoalbuminemia SNOMED Code(s): 228345974 Code(s): E88.09 - [facility] DISORDERS OF PLASMA-PROTEIN METABOLISM, NEC Status: Chronic Priority: Medium Current Visit: Yes Annotation/Comment:: Chronic problem. Glucerna high-protein has been discontinued per recommendations from dietitian secondary to persistent weight gain. Continue high-protein diet as above. Observe for now. - Problem List Review Problem List Initiated/Reviewed/Updated: Yes - Assessment Assessment:: As above. - Plan Plan:: As above. Extensive precautions were given to the patient, who is in agreement with the treatment plan. The patient will be recertified for an additional 60 days as chronic swing bed care required secondary to multiple health issues as above.
[2020-08-29 10:51] LABS: CHLORIDE,CL 108 mmol/L (98-107); SODIUM,NA 145 mmol/L (136-145)
[2020-08-29] MEDS: Acetaminophen 325 MG Tab PO PRN (12:10)
[2020-08-29] MEDS: LEVOTHYROXINE SODIUM 137 MCG PO SCH (19:20)
[2020-08-29] MEDS: Simvastatin 10 MG Tab PO SCH (19:21)
[2020-08-29] MEDS: BUPROPION 300 MG PO SCH (19:21)
[2020-08-29] MEDS: Menthol/Methyl Salicylate 85 GM Tube TOP PRN (19:21)
[2020-08-30] MEDS: Citalopram 20 MG Tab PO SCH (08:19)
[2020-08-30] MEDS: Potassium Chloride 20 MEQ Tab.ER PO SCH ×4 (08:19→19:22)
[2020-08-30] MEDS: Fludrocortisone 0.1 MG Tab PO SCH ×2 (08:19→19:22)
[2020-08-30] MEDS: Furosemide 20 MG Tab PO SCH ×2 (08:19→15:10)
[2020-08-30] MEDS: Albuterol/Ipratropium 3.0-0.5 MG/3 ML Neb Soln NEB SCH ×4 (08:20→19:23)
[2020-08-30] MEDS: Calcium Carbonate 750 MG Tab.Chew PO SCH (08:20)
[2020-08-30] MEDS: Ferrous Sulfate 325 MG Tab PO SCH (08:20)
[2020-08-30] MEDS: Niacin 500 MG Tab PO SCH ×2 (08:21→18:09)
[2020-08-30] MEDS: Cholecalciferol (Vitamin D3) 25 MCG Tab PO SCH (08:22)
[2020-08-30] MEDS: Cyanocobalamin (Vitamin B12) 1,000 MCG Tab PO SCH (08:22)
[2020-08-30] MEDS: Ibuprofen 600 MG Tab PO PRN ×2 (08:23→18:09)
[2020-08-30] MEDS: LEVOTHYROXINE SODIUM 137 MCG PO SCH (19:22)
[2020-08-30] MEDS: BUPROPION 300 MG PO SCH (19:22)
[2020-08-30] MEDS: Simvastatin 10 MG Tab PO SCH (19:22)
[2020-08-31] MEDS: Albuterol/Ipratropium 3.0-0.5 MG/3 ML Neb Soln NEB SCH ×4 (07:52→19:32)
[2020-08-31] MEDS: Potassium Chloride 20 MEQ Tab.ER PO SCH ×4 (07:53→19:32)
[2020-08-31] MEDS: Citalopram 20 MG Tab PO SCH (07:54)
[2020-08-31] MEDS: Furosemide 20 MG Tab PO SCH ×2 (07:54→13:47)
[2020-08-31] MEDS: Fludrocortisone 0.1 MG Tab PO SCH ×2 (07:54→19:32)
[2020-08-31] MEDS: Niacin 500 MG Tab PO SCH ×2 (07:55→17:11)
[2020-08-31] MEDS: Ferrous Sulfate 325 MG Tab PO SCH (07:55)
[2020-08-31] MEDS: Calcium Carbonate 750 MG Tab.Chew PO SCH (07:55)
[2020-08-31] MEDS: Cholecalciferol (Vitamin D3) 25 MCG Tab PO SCH (07:56)
[2020-08-31] MEDS: Cyanocobalamin (Vitamin B12) 1,000 MCG Tab PO SCH (07:56)
[2020-08-31] MEDS: Ibuprofen 600 MG Tab PO PRN ×2 (07:57→19:33)
[2020-08-31] MEDS: LEVOTHYROXINE SODIUM 137 MCG PO SCH (19:32)
[2020-08-31] MEDS: BUPROPION 300 MG PO SCH (19:32)
[2020-08-31] MEDS: Simvastatin 10 MG Tab PO SCH (19:33)
[2020-08-31] MEDS: Menthol/Methyl Salicylate 85 GM Tube TOP PRN (19:34)
[2020-09-01] MEDS: Potassium Chloride 20 MEQ Tab.ER PO SCH ×4 (07:22→19:22)
[2020-09-01] MEDS: Fludrocortisone 0.1 MG Tab PO SCH ×2 (07:23→19:21)
[2020-09-01] MEDS: Citalopram 20 MG Tab PO SCH (07:23)
[2020-09-01] MEDS: Furosemide 20 MG Tab PO SCH ×2 (07:23→13:03)
[2020-09-01] MEDS: Albuterol/Ipratropium 3.0-0.5 MG/3 ML Neb Soln NEB SCH ×4 (07:23→19:21)
[2020-09-01] MEDS: Ferrous Sulfate 325 MG Tab PO SCH (07:24)
[2020-09-01] MEDS: Niacin 500 MG Tab PO SCH ×2 (07:26→17:03)
[2020-09-01] MEDS: Calcium Carbonate 750 MG Tab.Chew PO SCH (07:26)
[2020-09-01] MEDS: Cyanocobalamin (Vitamin B12) 1,000 MCG Tab PO SCH (07:28)
[2020-09-01] MEDS: Cholecalciferol (Vitamin D3) 25 MCG Tab PO SCH (07:28)
[2020-09-01] MEDS: Bisacodyl 5 MG Tab PO PRN (07:29)
[2020-09-01] MEDS: BUPROPION 300 MG PO SCH (19:22)
[2020-09-01] MEDS: LEVOTHYROXINE SODIUM 137 MCG PO SCH (19:22)
[2020-09-01] MEDS: Simvastatin 10 MG Tab PO SCH (19:23)
[2020-09-01] MEDS: Ibuprofen 600 MG Tab PO PRN (19:25)
[2020-09-01] MEDS: Menthol/Methyl Salicylate 85 GM Tube TOP PRN (19:26)
[2020-09-02] MEDS: Acetaminophen 325 MG Tab PO PRN ×2 (04:26→16:19)
[2020-09-02] MEDS: Potassium Chloride 20 MEQ Tab.ER PO SCH ×4 (08:33→19:14)
[2020-09-02] MEDS: Citalopram 20 MG Tab PO SCH (08:34)
[2020-09-02] MEDS: Furosemide 20 MG Tab PO SCH ×2 (08:34→14:43)
[2020-09-02] MEDS: Fludrocortisone 0.1 MG Tab PO SCH ×2 (08:34→19:13)
[2020-09-02] MEDS: Albuterol/Ipratropium 3.0-0.5 MG/3 ML Neb Soln NEB SCH ×4 (08:34→19:13)
[2020-09-02] MEDS: Ferrous Sulfate 325 MG Tab PO SCH (08:35)
[2020-09-02] MEDS: Niacin 500 MG Tab PO SCH ×2 (08:36→18:01)
[2020-09-02] MEDS: Cyanocobalamin (Vitamin B12) 1,000 MCG Tab PO SCH (08:36)
[2020-09-02] MEDS: Calcium Carbonate 750 MG Tab.Chew PO SCH (08:36)
[2020-09-02] MEDS: Ibuprofen 600 MG Tab PO PRN ×2 (08:37→19:15)
[2020-09-02] MEDS: Cholecalciferol (Vitamin D3) 25 MCG Tab PO SCH (08:37)
[2020-09-02] MEDS: LEVOTHYROXINE SODIUM 137 MCG PO SCH (19:14)
[2020-09-02] MEDS: BUPROPION 300 MG PO SCH (19:14)
[2020-09-02] MEDS: Simvastatin 10 MG Tab PO SCH (19:15)
[2020-09-02] MEDS: Menthol/Methyl Salicylate 85 GM Tube TOP PRN (19:17)
[2020-09-03] MEDS: Potassium Chloride 20 MEQ Tab.ER PO SCH ×4 (08:26→19:21)
[2020-09-03] MEDS: Fludrocortisone 0.1 MG Tab PO SCH ×2 (08:26→19:21)
[2020-09-03] MEDS: Furosemide 20 MG Tab PO SCH ×2 (08:26→14:04)
[2020-09-03] MEDS: Citalopram 20 MG Tab PO SCH (08:26)
[2020-09-03] MEDS: Niacin 500 MG Tab PO SCH ×2 (08:27→17:31)
[2020-09-03] MEDS: Calcium Carbonate 750 MG Tab.Chew PO SCH (08:28)
[2020-09-03] MEDS: Cholecalciferol (Vitamin D3) 25 MCG Tab PO SCH (08:28)
[2020-09-03] MEDS: Cyanocobalamin (Vitamin B12) 1,000 MCG Tab PO SCH (08:28)
[2020-09-03] MEDS: Ibuprofen 600 MG Tab PO PRN ×2 (08:29→19:23)
[2020-09-03] MEDS: Albuterol/Ipratropium 3.0-0.5 MG/3 ML Neb Soln NEB SCH ×4 (08:29→19:21)
[2020-09-03] MEDS: Ferrous Sulfate 325 MG Tab PO SCH (08:29)
[2020-09-03] MEDS: Acetaminophen 325 MG Tab PO PRN ×2 (12:20→16:40)
[2020-09-03] MEDS: Simvastatin 10 MG Tab PO SCH (19:22)
[2020-09-03] MEDS: LEVOTHYROXINE SODIUM 137 MCG PO SCH (19:22)
[2020-09-03] MEDS: BUPROPION 300 MG PO SCH (19:22)
[2020-09-03] MEDS: Menthol/Methyl Salicylate 85 GM Tube TOP PRN (19:24)
[2020-09-04] MEDS: Citalopram 20 MG Tab PO SCH (07:53)
[2020-09-04] MEDS: Furosemide 20 MG Tab PO SCH ×2 (07:53→15:35)
[2020-09-04] MEDS: Fludrocortisone 0.1 MG Tab PO SCH ×2 (07:53→19:29)
[2020-09-04] MEDS: Potassium Chloride 20 MEQ Tab.ER PO SCH ×4 (07:53→19:29)
[2020-09-04] MEDS: Albuterol/Ipratropium 3.0-0.5 MG/3 ML Neb Soln NEB SCH ×4 (07:54→19:28)
[2020-09-04] MEDS: Ferrous Sulfate 325 MG Tab PO SCH (07:54)
[2020-09-04] MEDS: Niacin 500 MG Tab PO SCH ×2 (07:55→17:51)
[2020-09-04] MEDS: Calcium Carbonate 750 MG Tab.Chew PO SCH (07:55)
[2020-09-04] MEDS: Cyanocobalamin (Vitamin B12) 1,000 MCG Tab PO SCH (07:56)
[2020-09-04] MEDS: Cholecalciferol (Vitamin D3) 25 MCG Tab PO SCH (07:57)
[2020-09-04] MEDS: Ibuprofen 600 MG Tab PO PRN ×2 (08:07→19:32)
[2020-09-04] MEDS: BUPROPION 300 MG PO SCH (19:30)
[2020-09-04] MEDS: LEVOTHYROXINE SODIUM 137 MCG PO SCH (19:30)
[2020-09-04] MEDS: Simvastatin 10 MG Tab PO SCH (19:30)
[2020-09-04] MEDS: Menthol/Methyl Salicylate 85 GM Tube TOP PRN (19:33)
[2020-09-05] MEDS: Citalopram 20 MG Tab PO SCH (07:37)
[2020-09-05] MEDS: Furosemide 20 MG Tab PO SCH ×2 (07:37→13:14)
[2020-09-05] MEDS: Fludrocortisone 0.1 MG Tab PO SCH ×2 (07:37→19:37)
[2020-09-05] MEDS: Albuterol/Ipratropium 3.0-0.5 MG/3 ML Neb Soln NEB SCH ×4 (07:38→19:37)
[2020-09-05] MEDS: Potassium Chloride 20 MEQ Tab.ER PO SCH ×4 (07:38→19:37)
[2020-09-05] MEDS: Niacin 500 MG Tab PO SCH ×2 (07:38→17:41)
[2020-09-05] MEDS: Ferrous Sulfate 325 MG Tab PO SCH (07:38)
[2020-09-05] MEDS: Calcium Carbonate 750 MG Tab.Chew PO SCH (07:39)
[2020-09-05] MEDS: Cholecalciferol (Vitamin D3) 25 MCG Tab PO SCH (07:39)
[2020-09-05] MEDS: Cyanocobalamin (Vitamin B12) 1,000 MCG Tab PO SCH (07:39)
[2020-09-05] MEDS: Ibuprofen 600 MG Tab PO PRN (07:40)
[2020-09-05] MEDS ORDERED: FLU Vacc QS2020-21 36MOS UP/PF 60 MCG/0.5 ML Syringe IM ONE (10:00)
[2020-09-05] MEDS: Bisacodyl 5 MG Tab PO PRN (17:43)
[2020-09-05] MEDS: LEVOTHYROXINE SODIUM 137 MCG PO SCH (19:37)
[2020-09-05] MEDS: Simvastatin 10 MG Tab PO SCH (19:38)
[2020-09-05] MEDS: BUPROPION 300 MG PO SCH (19:38)
[2020-09-05] MEDS: Menthol/Methyl Salicylate 85 GM Tube TOP PRN (19:38)
[2020-09-05] MEDS: Acetaminophen 325 MG Tab PO PRN (19:39)
[2020-09-06] MEDS: Citalopram 20 MG Tab PO SCH (07:36)
[2020-09-06] MEDS: Fludrocortisone 0.1 MG Tab PO SCH ×2 (07:37→19:12)
[2020-09-06] MEDS: Albuterol/Ipratropium 3.0-0.5 MG/3 ML Neb Soln NEB SCH ×4 (07:37→19:12)
[2020-09-06] MEDS: Ferrous Sulfate 325 MG Tab PO SCH (07:37)
[2020-09-06] MEDS: Acetaminophen 325 MG Tab PO PRN ×2 (07:38→15:00)
[2020-09-06] MEDS: Potassium Chloride 20 MEQ Tab.ER PO SCH ×4 (07:38→19:13)
[2020-09-06] MEDS: Furosemide 20 MG Tab PO SCH ×2 (07:38→15:00)
[2020-09-06] MEDS: Cholecalciferol (Vitamin D3) 25 MCG Tab PO SCH (07:39)
[2020-09-06] MEDS: Cyanocobalamin (Vitamin B12) 1,000 MCG Tab PO SCH (07:39)
[2020-09-06] MEDS: Calcium Carbonate 750 MG Tab.Chew PO SCH (07:39)
[2020-09-06] MEDS: Niacin 500 MG Tab PO SCH ×2 (07:39→17:07)
[2020-09-06] MEDS: Ibuprofen 600 MG Tab PO PRN ×2 (11:42→19:15)
[2020-09-06] MEDS: Magnesium Hydroxide 400 MG/5 ML Susp 30 ML Cup PO PRN (12:45)
[2020-09-06] MEDS: LEVOTHYROXINE SODIUM 137 MCG PO SCH (19:13)
[2020-09-06] MEDS: BUPROPION 300 MG PO SCH (19:13)
[2020-09-06] MEDS: Menthol/Methyl Salicylate 85 GM Tube TOP PRN (19:14)
[2020-09-06] MEDS: Simvastatin 10 MG Tab PO SCH (19:14)
[2020-09-07] MEDS: Acetaminophen 325 MG Tab PO PRN (01:14)
[2020-09-07] MEDS: Potassium Chloride 20 MEQ Tab.ER PO SCH ×4 (08:01→19:25)
[2020-09-07] MEDS: Fludrocortisone 0.1 MG Tab PO SCH ×2 (08:02→19:25)
[2020-09-07] MEDS: Citalopram 20 MG Tab PO SCH (08:02)
[2020-09-07] MEDS: Furosemide 20 MG Tab PO SCH ×2 (08:02→13:13)
[2020-09-07] MEDS: Ibuprofen 600 MG Tab PO PRN ×2 (08:03→19:28)
[2020-09-07] MEDS: Albuterol/Ipratropium 3.0-0.5 MG/3 ML Neb Soln NEB SCH ×4 (08:03→19:25)
[2020-09-07] MEDS: Ferrous Sulfate 325 MG Tab PO SCH (08:04)
[2020-09-07] MEDS: Cholecalciferol (Vitamin D3) 25 MCG Tab PO SCH (08:05)
[2020-09-07] MEDS: Calcium Carbonate 750 MG Tab.Chew PO SCH (08:05)
[2020-09-07] MEDS: Cyanocobalamin (Vitamin B12) 1,000 MCG Tab PO SCH (08:05)
[2020-09-07] MEDS: Niacin 500 MG Tab PO SCH ×2 (08:05→17:34)
[2020-09-07] MEDS: BUPROPION 300 MG PO SCH (19:26)
[2020-09-07] MEDS: LEVOTHYROXINE SODIUM 137 MCG PO SCH (19:26)
[2020-09-07] MEDS: Simvastatin 10 MG Tab PO SCH (19:26)
[2020-09-07] MEDS: Menthol/Methyl Salicylate 85 GM Tube TOP PRN (19:28)
[2020-09-08] MEDS: Acetaminophen 325 MG Tab PO PRN ×2 (00:55→15:31)
[2020-09-08] MEDS: Albuterol/Ipratropium 3.0-0.5 MG/3 ML Neb Soln NEB SCH ×4 (07:29→19:12)
[2020-09-08] MEDS: Citalopram 20 MG Tab PO SCH (07:30)
[2020-09-08] MEDS: Ferrous Sulfate 325 MG Tab PO SCH (07:30)
[2020-09-08] MEDS: Fludrocortisone 0.1 MG Tab PO SCH ×2 (07:31→19:12)
[2020-09-08] MEDS: Potassium Chloride 20 MEQ Tab.ER PO SCH ×4 (07:31→19:12)
[2020-09-08] MEDS: Furosemide 20 MG Tab PO SCH ×2 (07:31→13:21)
[2020-09-08] MEDS: Cholecalciferol (Vitamin D3) 25 MCG Tab PO SCH (07:32)
[2020-09-08] MEDS: Calcium Carbonate 750 MG Tab.Chew PO SCH (07:32)
[2020-09-08] MEDS: Cyanocobalamin (Vitamin B12) 1,000 MCG Tab PO SCH (07:32)
[2020-09-08] MEDS: Niacin 500 MG Tab PO SCH ×2 (07:32→17:08)
[2020-09-08] MEDS: Ibuprofen 600 MG Tab PO PRN (11:16)
[2020-09-08] MEDS: Magnesium Hydroxide 400 MG/5 ML Susp 30 ML Cup PO PRN (11:38)
[2020-09-08] MEDS: Polyvinyl Alcohol 1.4% Ophth Soln 15 ML Bottle EYEBOTH PRN (14:02)
[2020-09-08] MEDS: LEVOTHYROXINE SODIUM 137 MCG PO SCH (19:12)
[2020-09-08] MEDS: BUPROPION 300 MG PO SCH (19:13)
[2020-09-08] MEDS: Simvastatin 10 MG Tab PO SCH (19:13)
[2020-09-09] MEDS: Albuterol/Ipratropium 3.0-0.5 MG/3 ML Neb Soln NEB SCH ×4 (07:26→19:12)
[2020-09-09] MEDS: Citalopram 20 MG Tab PO SCH (07:27)
[2020-09-09] MEDS: Acetaminophen 325 MG Tab PO PRN (07:27)
[2020-09-09] MEDS: Ferrous Sulfate 325 MG Tab PO SCH (07:28)
[2020-09-09] MEDS: Fludrocortisone 0.1 MG Tab PO SCH ×2 (07:28→19:12)
[2020-09-09] MEDS: Potassium Chloride 20 MEQ Tab.ER PO SCH ×4 (07:28→19:12)
[2020-09-09] MEDS: Furosemide 20 MG Tab PO SCH ×2 (07:28→15:01)
[2020-09-09] MEDS: Calcium Carbonate 750 MG Tab.Chew PO SCH (07:29)
[2020-09-09] MEDS: Niacin 500 MG Tab PO SCH ×2 (07:29→17:09)
[2020-09-09] MEDS: Cyanocobalamin (Vitamin B12) 1,000 MCG Tab PO SCH (07:30)
[2020-09-09] MEDS: Cholecalciferol (Vitamin D3) 25 MCG Tab PO SCH (07:30)
[2020-09-09] MEDS: Ibuprofen 600 MG Tab PO PRN (11:23)
[2020-09-09] MEDS: LEVOTHYROXINE SODIUM 137 MCG PO SCH (19:12)
[2020-09-09] MEDS: BUPROPION 300 MG PO SCH (19:12)
[2020-09-09] MEDS: Simvastatin 10 MG Tab PO SCH (19:13)
[2020-09-10] MEDS: Citalopram 20 MG Tab PO SCH (07:42)
[2020-09-10] MEDS: Albuterol/Ipratropium 3.0-0.5 MG/3 ML Neb Soln NEB SCH ×4 (07:42→19:16)
[2020-09-10] MEDS: Ferrous Sulfate 325 MG Tab PO SCH (07:43)
[2020-09-10] MEDS: Fludrocortisone 0.1 MG Tab PO SCH ×2 (07:43→19:16)
[2020-09-10] MEDS: Furosemide 20 MG Tab PO SCH ×2 (07:44→15:02)
[2020-09-10] MEDS: Niacin 500 MG Tab PO SCH ×2 (07:44→17:05)
[2020-09-10] MEDS: Potassium Chloride 20 MEQ Tab.ER PO SCH ×4 (07:44→19:16)
[2020-09-10] MEDS: Cyanocobalamin (Vitamin B12) 1,000 MCG Tab PO SCH (07:45)
[2020-09-10] MEDS: Calcium Carbonate 750 MG Tab.Chew PO SCH (07:45)
[2020-09-10] MEDS: Cholecalciferol (Vitamin D3) 25 MCG Tab PO SCH (07:46)
[2020-09-10] MEDS: Ibuprofen 600 MG Tab PO PRN (16:09)
[2020-09-10] MEDS: BUPROPION 300 MG PO SCH (19:16)
[2020-09-10] MEDS: LEVOTHYROXINE SODIUM 137 MCG PO SCH (19:16)
[2020-09-10] MEDS: Simvastatin 10 MG Tab PO SCH (19:16)
[2020-09-11] MEDS: Citalopram 20 MG Tab PO SCH (07:16)
[2020-09-11] MEDS: Ferrous Sulfate 325 MG Tab PO SCH (07:16)
[2020-09-11] MEDS: Albuterol/Ipratropium 3.0-0.5 MG/3 ML Neb Soln NEB SCH ×4 (07:16→19:23)
[2020-09-11] MEDS: Fludrocortisone 0.1 MG Tab PO SCH ×2 (07:17→19:24)
[2020-09-11] MEDS: Niacin 500 MG Tab PO SCH ×2 (07:17→17:04)
[2020-09-11] MEDS: Furosemide 20 MG Tab PO SCH ×2 (07:17→15:04)
[2020-09-11] MEDS: Potassium Chloride 20 MEQ Tab.ER PO SCH ×4 (07:17→19:24)
[2020-09-11] MEDS: Calcium Carbonate 750 MG Tab.Chew PO SCH (07:18)
[2020-09-11] MEDS: Cyanocobalamin (Vitamin B12) 1,000 MCG Tab PO SCH (07:18)
[2020-09-11] MEDS: Acetaminophen 325 MG Tab PO PRN ×2 (07:18→15:05)
[2020-09-11] MEDS: Cholecalciferol (Vitamin D3) 25 MCG Tab PO SCH (07:18)
[2020-09-11] MEDS: Ibuprofen 600 MG Tab PO PRN ×2 (11:19→19:26)
[2020-09-11] MEDS: BUPROPION 300 MG PO SCH (19:25)
[2020-09-11] MEDS: LEVOTHYROXINE SODIUM 137 MCG PO SCH (19:25)
[2020-09-11] MEDS: Simvastatin 10 MG Tab PO SCH (19:25)
[2020-09-11] MEDS: Menthol/Methyl Salicylate 85 GM Tube TOP PRN (19:27)
[2020-09-12] MEDS: Citalopram 20 MG Tab PO SCH (08:00)
[2020-09-12] MEDS: Fludrocortisone 0.1 MG Tab PO SCH ×2 (08:00→19:24)
[2020-09-12] MEDS: Albuterol/Ipratropium 3.0-0.5 MG/3 ML Neb Soln NEB SCH ×4 (08:00→19:24)
[2020-09-12] MEDS: Potassium Chloride 20 MEQ Tab.ER PO SCH ×4 (08:01→19:24)
[2020-09-12] MEDS: Ferrous Sulfate 325 MG Tab PO SCH (08:01)
[2020-09-12] MEDS: Furosemide 20 MG Tab PO SCH ×2 (08:01→14:05)
[2020-09-12] MEDS: Cyanocobalamin (Vitamin B12) 1,000 MCG Tab PO SCH (08:02)
[2020-09-12] MEDS: Calcium Carbonate 750 MG Tab.Chew PO SCH (08:02)
[2020-09-12] MEDS: Cholecalciferol (Vitamin D3) 25 MCG Tab PO SCH (08:02)
[2020-09-12] MEDS: Niacin 500 MG Tab PO SCH ×2 (08:02→17:22)
[2020-09-12] MEDS: Ibuprofen 600 MG Tab PO PRN ×2 (08:03→17:22)
[2020-09-12] MEDS: LEVOTHYROXINE SODIUM 137 MCG PO SCH (19:24)
[2020-09-12] MEDS: Menthol/Methyl Salicylate 85 GM Tube TOP PRN (19:25)
[2020-09-12] MEDS: BUPROPION 300 MG PO SCH (19:25)
[2020-09-12] MEDS: Simvastatin 10 MG Tab PO SCH (19:25)
[2020-09-13] MEDS: Menthol/Methyl Salicylate 85 GM Tube TOP PRN (07:39)
[2020-09-13] MEDS: Acetaminophen 325 MG Tab PO PRN (07:40)
[2020-09-13] MEDS: Fludrocortisone 0.1 MG Tab PO SCH ×2 (07:41→19:11)
[2020-09-13] MEDS: Albuterol/Ipratropium 3.0-0.5 MG/3 ML Neb Soln NEB SCH ×4 (07:41→19:12)
[2020-09-13] MEDS: Potassium Chloride 20 MEQ Tab.ER PO SCH ×4 (07:41→19:11)
[2020-09-13] MEDS: Citalopram 20 MG Tab PO SCH (07:41)
[2020-09-13] MEDS: Ferrous Sulfate 325 MG Tab PO SCH (07:41)
[2020-09-13] MEDS: Niacin 500 MG Tab PO SCH ×2 (07:42→17:07)
[2020-09-13] MEDS: Calcium Carbonate 750 MG Tab.Chew PO SCH (07:42)
[2020-09-13] MEDS: Furosemide 20 MG Tab PO SCH ×2 (07:42→13:57)
[2020-09-13] MEDS: Cholecalciferol (Vitamin D3) 25 MCG Tab PO SCH (07:43)
[2020-09-13] MEDS: Cyanocobalamin (Vitamin B12) 1,000 MCG Tab PO SCH (07:43)
[2020-09-13] MEDS: Ibuprofen 600 MG Tab PO PRN (11:13)
[2020-09-13] MEDS: Bisacodyl 5 MG Tab PO PRN (17:11)
[2020-09-13] MEDS: LEVOTHYROXINE SODIUM 137 MCG PO SCH (19:11)
[2020-09-13] MEDS: BUPROPION 300 MG PO SCH (19:12)
[2020-09-13] MEDS: Simvastatin 10 MG Tab PO SCH (19:12)
[2020-09-14] MEDS: Albuterol/Ipratropium 3.0-0.5 MG/3 ML Neb Soln NEB SCH ×4 (07:50→19:15)
[2020-09-14] MEDS: Fludrocortisone 0.1 MG Tab PO SCH ×2 (07:50→19:16)
[2020-09-14] MEDS: Potassium Chloride 20 MEQ Tab.ER PO SCH ×4 (07:50→19:16)
[2020-09-14] MEDS: Citalopram 20 MG Tab PO SCH (07:50)
[2020-09-14] MEDS: Furosemide 20 MG Tab PO SCH ×2 (07:50→14:04)
[2020-09-14] MEDS: Calcium Carbonate 750 MG Tab.Chew PO SCH (07:51)
[2020-09-14] MEDS: Ferrous Sulfate 325 MG Tab PO SCH (07:51)
[2020-09-14] MEDS: Niacin 500 MG Tab PO SCH ×2 (07:51→17:38)
[2020-09-14] MEDS: Cyanocobalamin (Vitamin B12) 1,000 MCG Tab PO SCH (07:52)
[2020-09-14] MEDS: Cholecalciferol (Vitamin D3) 25 MCG Tab PO SCH (07:52)
[2020-09-14] MEDS: Ibuprofen 600 MG Tab PO PRN ×2 (07:52→17:39)
[2020-09-14] MEDS: Menthol/Methyl Salicylate 85 GM Tube TOP PRN ×2 (07:53→19:17)
[2020-09-14] MEDS: BUPROPION 300 MG PO SCH (19:16)
[2020-09-14] MEDS: Simvastatin 10 MG Tab PO SCH (19:16)
[2020-09-14] MEDS: LEVOTHYROXINE SODIUM 137 MCG PO SCH (19:16)
[2020-09-15] MEDS: Potassium Chloride 20 MEQ Tab.ER PO SCH ×4 (07:47→19:47)
[2020-09-15] MEDS: Furosemide 20 MG Tab PO SCH ×2 (07:48→14:45)
[2020-09-15] MEDS: Citalopram 20 MG Tab PO SCH (07:48)
[2020-09-15] MEDS: Fludrocortisone 0.1 MG Tab PO SCH ×2 (07:48→19:47)
[2020-09-15] MEDS: Ferrous Sulfate 325 MG Tab PO SCH (07:49)
[2020-09-15] MEDS: Albuterol/Ipratropium 3.0-0.5 MG/3 ML Neb Soln NEB SCH ×4 (07:49→19:46)
[2020-09-15] MEDS: Niacin 500 MG Tab PO SCH ×2 (07:49→16:59)
[2020-09-15] MEDS: Calcium Carbonate 750 MG Tab.Chew PO SCH (07:50)
[2020-09-15] MEDS: Cholecalciferol (Vitamin D3) 25 MCG Tab PO SCH (07:51)
[2020-09-15] MEDS: Cyanocobalamin (Vitamin B12) 1,000 MCG Tab PO SCH (07:52)
[2020-09-15] MEDS: Ibuprofen 600 MG Tab PO PRN ×2 (07:53→16:54)
[2020-09-15] MEDS: LEVOTHYROXINE SODIUM 137 MCG PO SCH (19:47)
[2020-09-15] MEDS: Simvastatin 10 MG Tab PO SCH (19:47)
[2020-09-15] MEDS: BUPROPION 300 MG PO SCH (19:47)
[2020-09-15] MEDS: Menthol/Methyl Salicylate 85 GM Tube TOP PRN (19:48)
[2020-09-16] MEDS: Potassium Chloride 20 MEQ Tab.ER PO SCH ×4 (07:55→19:16)
[2020-09-16] MEDS: Furosemide 20 MG Tab PO SCH ×2 (07:56→15:00)
[2020-09-16] MEDS: Citalopram 20 MG Tab PO SCH (07:56)
[2020-09-16] MEDS: Fludrocortisone 0.1 MG Tab PO SCH ×2 (07:56→19:15)
[2020-09-16] MEDS: Niacin 500 MG Tab PO SCH ×2 (07:57→17:24)
[2020-09-16] MEDS: Cholecalciferol (Vitamin D3) 25 MCG Tab PO SCH (07:57)
[2020-09-16] MEDS: Cyanocobalamin (Vitamin B12) 1,000 MCG Tab PO SCH (07:57)
[2020-09-16] MEDS: Calcium Carbonate 750 MG Tab.Chew PO SCH (07:57)
[2020-09-16] MEDS: Ferrous Sulfate 325 MG Tab PO SCH (07:58)
[2020-09-16] MEDS: Albuterol/Ipratropium 3.0-0.5 MG/3 ML Neb Soln NEB SCH ×4 (07:58→19:15)
[2020-09-16] MEDS: Ibuprofen 600 MG Tab PO PRN ×2 (08:00→17:25)
[2020-09-16] MEDS: BUPROPION 300 MG PO SCH (19:16)
[2020-09-16] MEDS: LEVOTHYROXINE SODIUM 137 MCG PO SCH (19:16)
[2020-09-16] MEDS: Simvastatin 10 MG Tab PO SCH (19:16)
[2020-09-16] MEDS: Menthol/Methyl Salicylate 85 GM Tube TOP PRN (19:17)
[2020-09-17] MEDS: Albuterol/Ipratropium 3.0-0.5 MG/3 ML Neb Soln NEB SCH ×4 (07:38→19:18)
[2020-09-17] MEDS: Potassium Chloride 20 MEQ Tab.ER PO SCH ×4 (07:38→19:24)
[2020-09-17] MEDS: Fludrocortisone 0.1 MG Tab PO SCH ×2 (07:39→19:23)
[2020-09-17] MEDS: Furosemide 20 MG Tab PO SCH ×2 (07:39→13:25)
[2020-09-17] MEDS: Citalopram 20 MG Tab PO SCH (07:39)
[2020-09-17] MEDS: Ibuprofen 600 MG Tab PO PRN ×2 (07:40→19:25)
[2020-09-17] MEDS: Niacin 500 MG Tab PO SCH ×2 (07:41→17:32)
[2020-09-17] MEDS: Calcium Carbonate 750 MG Tab.Chew PO SCH (07:41)
[2020-09-17] MEDS: Cholecalciferol (Vitamin D3) 25 MCG Tab PO SCH (07:41)
[2020-09-17] MEDS: Ferrous Sulfate 325 MG Tab PO SCH (07:42)
[2020-09-17] MEDS: Cyanocobalamin (Vitamin B12) 1,000 MCG Tab PO SCH (07:42)
[2020-09-17] MEDS: Bisacodyl 5 MG Tab PO PRN (12:01)
[2020-09-17] MEDS: LEVOTHYROXINE SODIUM 137 MCG PO SCH (19:24)
[2020-09-17] MEDS: Simvastatin 10 MG Tab PO SCH (19:24)
[2020-09-17] MEDS: Menthol/Methyl Salicylate 85 GM Tube TOP PRN (19:24)
[2020-09-17] MEDS: BUPROPION 300 MG PO SCH (19:24)
[2020-09-18] MEDS: Potassium Chloride 20 MEQ Tab.ER PO SCH ×4 (07:46→19:25)
[2020-09-18] MEDS: Citalopram 20 MG Tab PO SCH (07:46)
[2020-09-18] MEDS: Ferrous Sulfate 325 MG Tab PO SCH (07:47)
[2020-09-18] MEDS: Furosemide 20 MG Tab PO SCH ×2 (07:47→13:08)
[2020-09-18] MEDS: Albuterol/Ipratropium 3.0-0.5 MG/3 ML Neb Soln NEB SCH ×4 (07:47→19:24)
[2020-09-18] MEDS: Fludrocortisone 0.1 MG Tab PO SCH ×2 (07:47→19:24)
[2020-09-18] MEDS: Calcium Carbonate 750 MG Tab.Chew PO SCH (07:48)
[2020-09-18] MEDS: Niacin 500 MG Tab PO SCH ×3 (07:48→17:21)
[2020-09-18] MEDS: Cyanocobalamin (Vitamin B12) 1,000 MCG Tab PO SCH (07:49)
[2020-09-18] MEDS: Cholecalciferol (Vitamin D3) 25 MCG Tab PO SCH (07:49)
[2020-09-18] MEDS: Ibuprofen 600 MG Tab PO PRN (07:50)
[2020-09-18] MEDS: Acetaminophen 325 MG Tab PO PRN (12:11)
[2020-09-18] MEDS: Menthol/Methyl Salicylate 85 GM Tube TOP PRN ×2 (13:08→19:40)
[2020-09-18] MEDS: Simvastatin 10 MG Tab PO SCH (19:25)
[2020-09-18] MEDS: BUPROPION 300 MG PO SCH (19:25)
[2020-09-18] MEDS: LEVOTHYROXINE SODIUM 137 MCG PO SCH (19:25)
[2020-09-19] MEDS: Albuterol/Ipratropium 3.0-0.5 MG/3 ML Neb Soln NEB SCH ×4 (08:16→19:12)
[2020-09-19] MEDS: Furosemide 20 MG Tab PO SCH ×2 (08:17→13:01)
[2020-09-19] MEDS: Fludrocortisone 0.1 MG Tab PO SCH ×2 (08:17→19:11)
[2020-09-19] MEDS: Potassium Chloride 20 MEQ Tab.ER PO SCH ×4 (08:17→19:11)
[2020-09-19] MEDS: Citalopram 20 MG Tab PO SCH (08:17)
[2020-09-19] MEDS: Ibuprofen 600 MG Tab PO PRN ×2 (08:18→19:30)
[2020-09-19] MEDS: Cholecalciferol (Vitamin D3) 25 MCG Tab PO SCH (08:19)
[2020-09-19] MEDS: Ferrous Sulfate 325 MG Tab PO SCH (08:19)
[2020-09-19] MEDS: Niacin 500 MG Tab PO SCH ×2 (08:19→17:23)
[2020-09-19] MEDS: Calcium Carbonate 750 MG Tab.Chew PO SCH (08:20)
[2020-09-19] MEDS: Cyanocobalamin (Vitamin B12) 1,000 MCG Tab PO SCH (08:20)
[2020-09-19] MEDS: Simvastatin 10 MG Tab PO SCH (19:11)
[2020-09-19] MEDS: BUPROPION 300 MG PO SCH (19:11)
[2020-09-19] MEDS: LEVOTHYROXINE SODIUM 137 MCG PO SCH (19:11)
[2020-09-20] MEDS: Citalopram 20 MG Tab PO SCH (07:22)
[2020-09-20] MEDS: Albuterol/Ipratropium 3.0-0.5 MG/3 ML Neb Soln NEB SCH ×4 (07:22→19:38)
[2020-09-20] MEDS: Ferrous Sulfate 325 MG Tab PO SCH (07:22)
[2020-09-20] MEDS: Potassium Chloride 20 MEQ Tab.ER PO SCH ×4 (07:23→19:39)
[2020-09-20] MEDS: Niacin 500 MG Tab PO SCH ×2 (07:23→17:11)
[2020-09-20] MEDS: Furosemide 20 MG Tab PO SCH ×2 (07:23→14:01)
[2020-09-20] MEDS: Fludrocortisone 0.1 MG Tab PO SCH ×2 (07:23→19:39)
[2020-09-20] MEDS: Cyanocobalamin (Vitamin B12) 1,000 MCG Tab PO SCH (07:24)
[2020-09-20] MEDS: Calcium Carbonate 750 MG Tab.Chew PO SCH (07:24)
[2020-09-20] MEDS: Cholecalciferol (Vitamin D3) 25 MCG Tab PO SCH (07:24)
[2020-09-20] MEDS: Acetaminophen 325 MG Tab PO PRN ×2 (07:25→15:03)
[2020-09-20] MEDS: Ibuprofen 600 MG Tab PO PRN ×2 (11:46→19:41)
[2020-09-20] MEDS: BUPROPION 300 MG PO SCH (19:39)
[2020-09-20] MEDS: LEVOTHYROXINE SODIUM 137 MCG PO SCH (19:39)
[2020-09-20] MEDS: Menthol/Methyl Salicylate 85 GM Tube TOP PRN (19:40)
[2020-09-20] MEDS: Simvastatin 10 MG Tab PO SCH (19:40)
[2020-09-21] MEDS: Acetaminophen 325 MG Tab PO PRN ×2 (03:24→11:07)
[2020-09-21] MEDS: Menthol/Methyl Salicylate 85 GM Tube TOP PRN ×2 (03:30→19:39)
[2020-09-21] MEDS: Docusate Sodium 100 MG Cap PO SCH ×2 (07:00→17:05)
[2020-09-21] MEDS: Citalopram 20 MG Tab PO SCH (07:00)
[2020-09-21] MEDS: Albuterol/Ipratropium 3.0-0.5 MG/3 ML Neb Soln NEB SCH ×4 (07:01→19:36)
[2020-09-21] MEDS: Ferrous Sulfate 325 MG Tab PO SCH (07:01)
[2020-09-21] MEDS: Fludrocortisone 0.1 MG Tab PO SCH ×2 (07:01→19:37)
[2020-09-21] MEDS: Furosemide 20 MG Tab PO SCH ×2 (07:02→13:03)
[2020-09-21] MEDS: Niacin 500 MG Tab PO SCH ×2 (07:02→17:05)
[2020-09-21] MEDS: Calcium Carbonate 750 MG Tab.Chew PO SCH (07:02)
[2020-09-21] MEDS: Potassium Chloride 20 MEQ Tab.ER PO SCH ×4 (07:02→19:37)
[2020-09-21] MEDS: Ibuprofen 600 MG Tab PO PRN ×2 (07:03→19:38)
[2020-09-21] MEDS: Cyanocobalamin (Vitamin B12) 1,000 MCG Tab PO SCH (07:03)
[2020-09-21] MEDS: Cholecalciferol (Vitamin D3) 25 MCG Tab PO SCH (07:03)
[2020-09-21] MEDS: Magnesium Hydroxide 400 MG/5 ML Susp 30 ML Cup PO PRN (07:04)
[2020-09-21] MEDS: Bisacodyl 5 MG Tab PO PRN (15:02)
[2020-09-21] MEDS: Simvastatin 10 MG Tab PO SCH (19:37)
[2020-09-21] MEDS: LEVOTHYROXINE SODIUM 137 MCG PO SCH (19:37)
[2020-09-21] MEDS: BUPROPION 300 MG PO SCH (19:37)
[2020-09-22] MEDS: Acetaminophen 325 MG Tab PO PRN ×2 (05:18→19:27)
[2020-09-22] MEDS: Citalopram 20 MG Tab PO SCH (08:00)
[2020-09-22] MEDS: Potassium Chloride 20 MEQ Tab.ER PO SCH ×4 (08:01→19:25)
[2020-09-22] MEDS: Fludrocortisone 0.1 MG Tab PO SCH ×2 (08:01→19:25)
[2020-09-22] MEDS: Furosemide 20 MG Tab PO SCH ×2 (08:01→14:32)
[2020-09-22] MEDS: Docusate Sodium 100 MG Cap PO SCH ×2 (08:02→16:59)
[2020-09-22] MEDS: Ibuprofen 600 MG Tab PO PRN ×2 (08:03→16:52)
[2020-09-22] MEDS: Albuterol/Ipratropium 3.0-0.5 MG/3 ML Neb Soln NEB SCH ×4 (08:03→19:24)
[2020-09-22] MEDS: Ferrous Sulfate 325 MG Tab PO SCH (08:03)
[2020-09-22] MEDS: Calcium Carbonate 750 MG Tab.Chew PO SCH (08:04)
[2020-09-22] MEDS: Niacin 500 MG Tab PO SCH ×2 (08:05→16:59)
[2020-09-22] MEDS: Cholecalciferol (Vitamin D3) 25 MCG Tab PO SCH (08:05)
[2020-09-22] MEDS: Cyanocobalamin (Vitamin B12) 1,000 MCG Tab PO SCH (08:06)
[2020-09-22] MEDS: LEVOTHYROXINE SODIUM 137 MCG PO SCH (19:25)
[2020-09-22] MEDS: Simvastatin 10 MG Tab PO SCH (19:26)
[2020-09-22] MEDS: BUPROPION 300 MG PO SCH (19:26)
[2020-09-22] MEDS: Menthol/Methyl Salicylate 85 GM Tube TOP PRN (19:29)
[2020-09-23] MEDS: Docusate Sodium 100 MG Cap PO SCH ×2 (08:17→17:25)
[2020-09-23] MEDS: Albuterol/Ipratropium 3.0-0.5 MG/3 ML Neb Soln NEB SCH ×4 (08:17→19:29)
[2020-09-23] MEDS: Citalopram 20 MG Tab PO SCH (08:17)
[2020-09-23] MEDS: Furosemide 20 MG Tab PO SCH ×2 (08:18→14:09)
[2020-09-23] MEDS: Potassium Chloride 20 MEQ Tab.ER PO SCH ×4 (08:18→19:30)
[2020-09-23] MEDS: Fludrocortisone 0.1 MG Tab PO SCH ×2 (08:18→19:29)
[2020-09-23] MEDS: Ferrous Sulfate 325 MG Tab PO SCH (08:18)
[2020-09-23] MEDS: Niacin 500 MG Tab PO SCH ×2 (08:19→17:26)
[2020-09-23] MEDS: Calcium Carbonate 750 MG Tab.Chew PO SCH (08:19)
[2020-09-23] MEDS: Cholecalciferol (Vitamin D3) 25 MCG Tab PO SCH (08:20)
[2020-09-23] MEDS: Cyanocobalamin (Vitamin B12) 1,000 MCG Tab PO SCH (08:20)
[2020-09-23] MEDS: Menthol/Methyl Salicylate 85 GM Tube TOP PRN ×2 (10:11→19:32)
[2020-09-23] MEDS: Ibuprofen 600 MG Tab PO PRN (15:13)
[2020-09-23] MEDS: BUPROPION 300 MG PO SCH (19:30)
[2020-09-23] MEDS: LEVOTHYROXINE SODIUM 137 MCG PO SCH (19:30)
[2020-09-23] MEDS: Simvastatin 10 MG Tab PO SCH (19:31)
[2020-09-23] MEDS: Acetaminophen 325 MG Tab PO PRN (19:31)
[2020-09-23] MEDS: Magnesium Hydroxide 400 MG/5 ML Susp 30 ML Cup PO PRN (19:51)
[2020-09-24] MEDS: Albuterol/Ipratropium 3.0-0.5 MG/3 ML Neb Soln NEB SCH ×4 (07:26→19:39)
[2020-09-24] MEDS: Citalopram 20 MG Tab PO SCH (07:27)
[2020-09-24] MEDS: Ferrous Sulfate 325 MG Tab PO SCH (07:28)
[2020-09-24] MEDS: Docusate Sodium 100 MG Cap PO SCH ×2 (07:28→16:59)
[2020-09-24] MEDS: Fludrocortisone 0.1 MG Tab PO SCH ×2 (07:29→19:39)
[2020-09-24] MEDS: Potassium Chloride 20 MEQ Tab.ER PO SCH ×4 (07:29→19:39)
[2020-09-24] MEDS: Furosemide 20 MG Tab PO SCH ×2 (07:30→14:05)
[2020-09-24] MEDS: Niacin 500 MG Tab PO SCH ×2 (07:30→16:59)
[2020-09-24] MEDS: Calcium Carbonate 750 MG Tab.Chew PO SCH (07:31)
[2020-09-24] MEDS: Cyanocobalamin (Vitamin B12) 1,000 MCG Tab PO SCH (07:31)
[2020-09-24] MEDS: Menthol/Methyl Salicylate 85 GM Tube TOP PRN ×2 (07:32→19:42)
[2020-09-24] MEDS: Cholecalciferol (Vitamin D3) 25 MCG Tab PO SCH (07:32)
[2020-09-24] MEDS: Ibuprofen 600 MG Tab PO PRN ×2 (12:22→19:41)
[2020-09-24] MEDS: Simvastatin 10 MG Tab PO SCH (19:40)
[2020-09-24] MEDS: BUPROPION 300 MG PO SCH (19:40)
[2020-09-24] MEDS: LEVOTHYROXINE SODIUM 137 MCG PO SCH (19:40)
[2020-09-25] MEDS: Citalopram 20 MG Tab PO SCH (07:07)
[2020-09-25] MEDS: Albuterol/Ipratropium 3.0-0.5 MG/3 ML Neb Soln NEB SCH ×4 (07:07→18:59)
[2020-09-25] MEDS: Docusate Sodium 100 MG Cap PO SCH ×2 (07:07→17:04)
[2020-09-25] MEDS: Fludrocortisone 0.1 MG Tab PO SCH ×2 (07:08→18:59)
[2020-09-25] MEDS: Furosemide 20 MG Tab PO SCH ×2 (07:08→13:37)
[2020-09-25] MEDS: Niacin 500 MG Tab PO SCH ×2 (07:08→17:04)
[2020-09-25] MEDS: Ferrous Sulfate 325 MG Tab PO SCH (07:08)
[2020-09-25] MEDS: Potassium Chloride 20 MEQ Tab.ER PO SCH ×4 (07:08→18:59)
[2020-09-25] MEDS: Cholecalciferol (Vitamin D3) 25 MCG Tab PO SCH (07:09)
[2020-09-25] MEDS: Cyanocobalamin (Vitamin B12) 1,000 MCG Tab PO SCH (07:09)
[2020-09-25] MEDS: Calcium Carbonate 750 MG Tab.Chew PO SCH (07:09)
[2020-09-25] MEDS: Acetaminophen 325 MG Tab PO PRN ×2 (07:10→15:08)
[2020-09-25] MEDS: Ibuprofen 600 MG Tab PO PRN ×2 (11:06→19:00)
[2020-09-25] MEDS: BUPROPION 300 MG PO SCH (19:00)
[2020-09-25] MEDS: LEVOTHYROXINE SODIUM 137 MCG PO SCH (19:00)
[2020-09-25] MEDS: Simvastatin 10 MG Tab PO SCH (19:00)
[2020-09-26] MEDS: Citalopram 20 MG Tab PO SCH (07:40)
[2020-09-26] MEDS: Furosemide 20 MG Tab PO SCH ×3 (07:41→14:01)
[2020-09-26] MEDS: Potassium Chloride 20 MEQ Tab.ER PO SCH ×4 (07:41→19:25)
[2020-09-26] MEDS: Fludrocortisone 0.1 MG Tab PO SCH ×2 (07:41→19:25)
[2020-09-26] MEDS: Docusate Sodium 100 MG Cap PO SCH ×2 (07:42→17:06)
[2020-09-26] MEDS: Albuterol/Ipratropium 3.0-0.5 MG/3 ML Neb Soln NEB SCH ×4 (07:42→19:24)
[2020-09-26] MEDS: Niacin 500 MG Tab PO SCH ×2 (07:43→17:06)
[2020-09-26] MEDS: Ferrous Sulfate 325 MG Tab PO SCH (07:43)
[2020-09-26] MEDS: Cholecalciferol (Vitamin D3) 25 MCG Tab PO SCH (07:44)
[2020-09-26] MEDS: Cyanocobalamin (Vitamin B12) 1,000 MCG Tab PO SCH (07:44)
[2020-09-26] MEDS: Calcium Carbonate 750 MG Tab.Chew PO SCH (07:45)
[2020-09-26] MEDS: Ibuprofen 600 MG Tab PO PRN ×2 (07:47→19:26)
[2020-09-26] MEDS: Menthol/Methyl Salicylate 85 GM Tube TOP PRN ×2 (12:58→19:26)
[2020-09-26] MEDS: Acetaminophen 325 MG Tab PO PRN (14:58)
[2020-09-26] MEDS: LEVOTHYROXINE SODIUM 137 MCG PO SCH (19:25)
[2020-09-26] MEDS: BUPROPION 300 MG PO SCH (19:25)
[2020-09-26] MEDS: Simvastatin 10 MG Tab PO SCH (19:25)
[2020-09-27] MEDS: Citalopram 20 MG Tab PO SCH (08:06)
[2020-09-27] MEDS: Furosemide 20 MG Tab PO SCH ×2 (08:07→13:08)
[2020-09-27] MEDS: Fludrocortisone 0.1 MG Tab PO SCH ×2 (08:07→19:18)
[2020-09-27] MEDS: Potassium Chloride 20 MEQ Tab.ER PO SCH ×4 (08:07→19:18)
[2020-09-27] MEDS: Ibuprofen 600 MG Tab PO PRN (08:08)
[2020-09-27] MEDS: Docusate Sodium 100 MG Cap PO SCH ×2 (08:08→16:59)
[2020-09-27] MEDS: Ferrous Sulfate 325 MG Tab PO SCH (08:09)
[2020-09-27] MEDS: Niacin 500 MG Tab PO SCH ×2 (08:09→16:59)
[2020-09-27] MEDS: Albuterol/Ipratropium 3.0-0.5 MG/3 ML Neb Soln NEB SCH (08:09)
[2020-09-27] MEDS: Cholecalciferol (Vitamin D3) 25 MCG Tab PO SCH (08:10)
[2020-09-27] MEDS: Cyanocobalamin (Vitamin B12) 1,000 MCG Tab PO SCH (08:10)
[2020-09-27] MEDS: Calcium Carbonate 750 MG Tab.Chew PO SCH (08:10)
[2020-09-27] MEDS ORDERED: Albuterol/Ipratropium 4 GM Inhalation Spray INH PRN (10:58)
--- NOTE | 2020-09-27 11:51 | PCM.SN.2 ---
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 Possible minimal growth during the last few years by her history. 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 Consider nuclear bone scan depending on her clinical course. In addition, secondary to current COVID-19 pandemic her DuoNeb nebulizer treatments will be changed to Combivent inhaler.
[2020-09-27] MEDS: Albuterol/Ipratropium 4 GM Inhalation Spray INH SCH ×3 (13:13→19:17)
[2020-09-27] MEDS: LEVOTHYROXINE SODIUM 137 MCG PO SCH (19:18)
[2020-09-27] MEDS: BUPROPION 300 MG PO SCH (19:18)
[2020-09-27] MEDS: Acetaminophen 325 MG Tab PO PRN (19:19)
[2020-09-27] MEDS: Simvastatin 10 MG Tab PO SCH (19:19)
[2020-09-27] MEDS: Menthol/Methyl Salicylate 85 GM Tube TOP PRN (19:20)
[2020-09-27] MEDS: Bisacodyl 5 MG Tab PO PRN (19:40)
[2020-09-28] MEDS: Citalopram 20 MG Tab PO SCH (07:51)
[2020-09-28] MEDS: Fludrocortisone 0.1 MG Tab PO SCH ×2 (07:51→19:14)
[2020-09-28] MEDS: Potassium Chloride 20 MEQ Tab.ER PO SCH ×4 (07:51→19:14)
[2020-09-28] MEDS: Furosemide 20 MG Tab PO SCH ×2 (07:52→14:29)
[2020-09-28] MEDS: Docusate Sodium 100 MG Cap PO SCH ×2 (07:53→17:03)
[2020-09-28] MEDS: Albuterol/Ipratropium 4 GM Inhalation Spray INH SCH ×4 (07:54→19:13)
[2020-09-28] MEDS: Ferrous Sulfate 325 MG Tab PO SCH (07:54)
[2020-09-28] MEDS: Cholecalciferol (Vitamin D3) 25 MCG Tab PO SCH (07:55)
[2020-09-28] MEDS: Calcium Carbonate 750 MG Tab.Chew PO SCH (07:55)
[2020-09-28] MEDS: Niacin 500 MG Tab PO SCH ×2 (07:55→17:04)
[2020-09-28] MEDS: Cyanocobalamin (Vitamin B12) 1,000 MCG Tab PO SCH (07:55)
[2020-09-28] MEDS: Ibuprofen 600 MG Tab PO PRN (15:38)
[2020-09-28] MEDS: LEVOTHYROXINE SODIUM 137 MCG PO SCH (19:14)
[2020-09-28] MEDS: Simvastatin 10 MG Tab PO SCH (19:15)
[2020-09-28] MEDS: BUPROPION 300 MG PO SCH (19:15)
[2020-09-28] MEDS: Acetaminophen 325 MG Tab PO PRN (19:17)
[2020-09-28] MEDS: Menthol/Methyl Salicylate 85 GM Tube TOP PRN (19:18)
[2020-09-29] MEDS: Ibuprofen 600 MG Tab PO PRN (05:30)
[2020-09-29] MEDS: Citalopram 20 MG Tab PO SCH (08:11)
[2020-09-29] MEDS: Niacin 500 MG Tab PO SCH ×2 (08:12→17:35)
[2020-09-29] MEDS: Furosemide 20 MG Tab PO SCH ×2 (08:12→13:09)
[2020-09-29] MEDS: Fludrocortisone 0.1 MG Tab PO SCH ×2 (08:12→19:11)
[2020-09-29] MEDS: Calcium Carbonate 750 MG Tab.Chew PO SCH (08:13)
[2020-09-29] MEDS: Cholecalciferol (Vitamin D3) 25 MCG Tab PO SCH (08:13)
[2020-09-29] MEDS: Cyanocobalamin (Vitamin B12) 1,000 MCG Tab PO SCH (08:13)
[2020-09-29] MEDS: Potassium Chloride 20 MEQ Tab.ER PO SCH ×4 (08:14→19:11)
[2020-09-29] MEDS: Docusate Sodium 100 MG Cap PO SCH ×2 (08:16→17:35)
[2020-09-29] MEDS: Ferrous Sulfate 325 MG Tab PO SCH (08:16)
[2020-09-29] MEDS: Albuterol/Ipratropium 4 GM Inhalation Spray INH SCH ×4 (08:17→19:10)
[2020-09-29] MEDS: BUPROPION 300 MG PO SCH (19:11)
[2020-09-29] MEDS: LEVOTHYROXINE SODIUM 137 MCG PO SCH (19:11)
[2020-09-29] MEDS: Simvastatin 10 MG Tab PO SCH (19:12)
[2020-09-29] MEDS: Acetaminophen 325 MG Tab PO PRN (19:14)
[2020-09-30] MEDS: Citalopram 20 MG Tab PO SCH (07:43)
[2020-09-30] MEDS: Albuterol/Ipratropium 4 GM Inhalation Spray INH SCH ×4 (07:44→19:27)
[2020-09-30] MEDS: Docusate Sodium 100 MG Cap PO SCH ×2 (07:44→17:17)
[2020-09-30] MEDS: Potassium Chloride 20 MEQ Tab.ER PO SCH ×4 (07:45→19:27)
[2020-09-30] MEDS: Ferrous Sulfate 325 MG Tab PO SCH (07:45)
[2020-09-30] MEDS: Fludrocortisone 0.1 MG Tab PO SCH ×2 (07:45→19:27)
[2020-09-30] MEDS: Niacin 500 MG Tab PO SCH ×2 (07:46→17:17)
[2020-09-30] MEDS: Furosemide 20 MG Tab PO SCH ×2 (07:46→14:05)
[2020-09-30] MEDS: Calcium Carbonate 750 MG Tab.Chew PO SCH (07:47)
[2020-09-30] MEDS: Cyanocobalamin (Vitamin B12) 1,000 MCG Tab PO SCH (07:47)
[2020-09-30] MEDS: Cholecalciferol (Vitamin D3) 25 MCG Tab PO SCH (07:51)
[2020-09-30] MEDS: Menthol/Methyl Salicylate 85 GM Tube TOP PRN ×2 (07:55→19:28)
[2020-09-30] MEDS: Simvastatin 10 MG Tab PO SCH (19:28)
[2020-09-30] MEDS: BUPROPION 300 MG PO SCH (19:28)
[2020-09-30] MEDS: LEVOTHYROXINE SODIUM 137 MCG PO SCH (19:28)
[2020-09-30] MEDS: Ibuprofen 600 MG Tab PO PRN (19:29)
[2020-10-01] MEDS: Citalopram 20 MG Tab PO SCH (07:33)
[2020-10-01] MEDS: Albuterol/Ipratropium 4 GM Inhalation Spray INH SCH ×4 (07:34→19:04)
[2020-10-01] MEDS: Ferrous Sulfate 325 MG Tab PO SCH (07:34)
[2020-10-01] MEDS: Fludrocortisone 0.1 MG Tab PO SCH ×2 (07:34→19:04)
[2020-10-01] MEDS: Docusate Sodium 100 MG Cap PO SCH ×2 (07:34→17:29)
[2020-10-01] MEDS: Furosemide 20 MG Tab PO SCH ×2 (07:35→14:17)
[2020-10-01] MEDS: Potassium Chloride 20 MEQ Tab.ER PO SCH ×4 (07:35→19:05)
[2020-10-01] MEDS: Niacin 500 MG Tab PO SCH ×2 (07:35→17:29)
[2020-10-01] MEDS: Acetaminophen 325 MG Tab PO PRN (07:36)
[2020-10-01] MEDS: Cholecalciferol (Vitamin D3) 25 MCG Tab PO SCH (07:36)
[2020-10-01] MEDS: Calcium Carbonate 750 MG Tab.Chew PO SCH (07:36)
[2020-10-01] MEDS: Cyanocobalamin (Vitamin B12) 1,000 MCG Tab PO SCH (07:36)
[2020-10-01] MEDS: Ibuprofen 600 MG Tab PO PRN (14:21)
[2020-10-01] MEDS: Simvastatin 10 MG Tab PO SCH (19:05)
[2020-10-01] MEDS: BUPROPION 300 MG PO SCH (19:05)
[2020-10-01] MEDS: LEVOTHYROXINE SODIUM 137 MCG PO SCH (19:05)
[2020-10-02] MEDS: Citalopram 20 MG Tab PO SCH (07:12)
[2020-10-02] MEDS: Albuterol/Ipratropium 4 GM Inhalation Spray INH SCH ×4 (07:13→19:24)
[2020-10-02] MEDS: Docusate Sodium 100 MG Cap PO SCH ×2 (07:13→17:09)
[2020-10-02] MEDS: Fludrocortisone 0.1 MG Tab PO SCH ×2 (07:13→19:24)
[2020-10-02] MEDS: Potassium Chloride 20 MEQ Tab.ER PO SCH ×4 (07:13→19:24)
[2020-10-02] MEDS: Ferrous Sulfate 325 MG Tab PO SCH (07:13)
[2020-10-02] MEDS: Niacin 500 MG Tab PO SCH ×2 (07:14→17:09)
[2020-10-02] MEDS: Calcium Carbonate 750 MG Tab.Chew PO SCH (07:14)
[2020-10-02] MEDS: Cyanocobalamin (Vitamin B12) 1,000 MCG Tab PO SCH (07:14)
[2020-10-02] MEDS: Furosemide 20 MG Tab PO SCH ×2 (07:14→13:36)
[2020-10-02] MEDS: Cholecalciferol (Vitamin D3) 25 MCG Tab PO SCH (07:15)
[2020-10-02] MEDS: Acetaminophen 325 MG Tab PO PRN ×2 (07:15→15:03)
[2020-10-02] MEDS: Ibuprofen 600 MG Tab PO PRN ×2 (11:14→19:25)
[2020-10-02] MEDS: LEVOTHYROXINE SODIUM 137 MCG PO SCH (19:24)
[2020-10-02] MEDS: Simvastatin 10 MG Tab PO SCH (19:25)
[2020-10-02] MEDS: BUPROPION 300 MG PO SCH (19:25)
[2020-10-02] MEDS: Menthol/Methyl Salicylate 85 GM Tube TOP PRN (19:26)
[2020-10-03] MEDS: Citalopram 20 MG Tab PO SCH (08:04)
[2020-10-03] MEDS: Fludrocortisone 0.1 MG Tab PO SCH ×2 (08:04→19:28)
[2020-10-03] MEDS: Furosemide 20 MG Tab PO SCH ×2 (08:05→15:08)
[2020-10-03] MEDS: Niacin 500 MG Tab PO SCH ×2 (08:05→17:47)
[2020-10-03] MEDS: Potassium Chloride 20 MEQ Tab.ER PO SCH ×4 (08:05→19:28)
[2020-10-03] MEDS: Cyanocobalamin (Vitamin B12) 1,000 MCG Tab PO SCH (08:06)
[2020-10-03] MEDS: Calcium Carbonate 750 MG Tab.Chew PO SCH (08:06)
[2020-10-03] MEDS: Cholecalciferol (Vitamin D3) 25 MCG Tab PO SCH (08:06)
[2020-10-03] MEDS: Ferrous Sulfate 325 MG Tab PO SCH (08:07)
[2020-10-03] MEDS: Docusate Sodium 100 MG Cap PO SCH ×2 (08:07→17:47)
[2020-10-03] MEDS: Albuterol/Ipratropium 4 GM Inhalation Spray INH SCH ×4 (08:07→19:27)
[2020-10-03] MEDS: LEVOTHYROXINE SODIUM 137 MCG PO SCH (19:29)
[2020-10-03] MEDS: BUPROPION 300 MG PO SCH (19:29)
[2020-10-03] MEDS: Simvastatin 10 MG Tab PO SCH (19:30)
[2020-10-03] MEDS: Menthol/Methyl Salicylate 85 GM Tube TOP PRN (19:31)
[2020-10-03] MEDS: Ibuprofen 600 MG Tab PO PRN (19:32)
[2020-10-03] MEDS: Magnesium Hydroxide 400 MG/5 ML Susp 30 ML Cup PO PRN (19:43)
[2020-10-04] MEDS: Ferrous Sulfate 325 MG Tab PO SCH (07:22)
[2020-10-04] MEDS: Docusate Sodium 100 MG Cap PO SCH ×3 (07:22→17:09)
[2020-10-04] MEDS: Citalopram 20 MG Tab PO SCH (07:22)
[2020-10-04] MEDS: Albuterol/Ipratropium 4 GM Inhalation Spray INH SCH ×4 (07:22→19:22)
[2020-10-04] MEDS: Furosemide 20 MG Tab PO SCH ×2 (07:23→14:00)
[2020-10-04] MEDS: Potassium Chloride 20 MEQ Tab.ER PO SCH ×4 (07:23→19:23)
[2020-10-04] MEDS: Acetaminophen 325 MG Tab PO PRN ×2 (07:23→15:00)
[2020-10-04] MEDS: Fludrocortisone 0.1 MG Tab PO SCH ×2 (07:23→19:23)
[2020-10-04] MEDS: Cyanocobalamin (Vitamin B12) 1,000 MCG Tab PO SCH (07:24)
[2020-10-04] MEDS: Calcium Carbonate 750 MG Tab.Chew PO SCH (07:24)
[2020-10-04] MEDS: Niacin 500 MG Tab PO SCH ×2 (07:24→17:09)
[2020-10-04] MEDS: Cholecalciferol (Vitamin D3) 25 MCG Tab PO SCH (07:25)
[2020-10-04] MEDS: Bisacodyl 5 MG Tab PO PRN ×2 (07:25→09:28)
[2020-10-04] MEDS: Aluminum Hydroxide/Magnesium Hydroxide/Simethicone Susp 30 ML Cup PO PRN (09:32)
[2020-10-04] MEDS: Ibuprofen 600 MG Tab PO PRN ×2 (11:03→19:24)
[2020-10-04] MEDS: BUPROPION 300 MG PO SCH (19:23)
[2020-10-04] MEDS: Simvastatin 10 MG Tab PO SCH (19:23)
[2020-10-04] MEDS: LEVOTHYROXINE SODIUM 137 MCG PO SCH (19:23)
[2020-10-04] MEDS: Menthol/Methyl Salicylate 85 GM Tube TOP PRN (19:24)
[2020-10-05] MEDS: Albuterol/Ipratropium 4 GM Inhalation Spray INH SCH ×4 (07:58→19:32)
[2020-10-05] MEDS: Furosemide 20 MG Tab PO SCH ×2 (07:58→13:32)
[2020-10-05] MEDS: Potassium Chloride 20 MEQ Tab.ER PO SCH ×4 (07:59→19:31)
[2020-10-05] MEDS: Citalopram 20 MG Tab PO SCH (07:59)
[2020-10-05] MEDS: Fludrocortisone 0.1 MG Tab PO SCH ×2 (07:59→19:31)
[2020-10-05] MEDS: Ferrous Sulfate 325 MG Tab PO SCH (08:00)
[2020-10-05] MEDS: Docusate Sodium 100 MG Cap PO SCH ×3 (08:01→17:33)
[2020-10-05] MEDS: Calcium Carbonate 750 MG Tab.Chew PO SCH (08:01)
[2020-10-05] MEDS: Niacin 500 MG Tab PO SCH ×2 (08:01→17:32)
[2020-10-05] MEDS: Cyanocobalamin (Vitamin B12) 1,000 MCG Tab PO SCH (08:02)
[2020-10-05] MEDS: Cholecalciferol (Vitamin D3) 25 MCG Tab PO SCH (08:02)
[2020-10-05] MEDS: Menthol/Methyl Salicylate 85 GM Tube TOP PRN (19:31)
[2020-10-05] MEDS: LEVOTHYROXINE SODIUM 137 MCG PO SCH (19:32)
[2020-10-05] MEDS: Simvastatin 10 MG Tab PO SCH (19:32)
[2020-10-05] MEDS: BUPROPION 300 MG PO SCH (19:32)
[2020-10-06] MEDS: Furosemide 20 MG Tab PO SCH ×2 (08:20→13:25)
[2020-10-06] MEDS: Potassium Chloride 20 MEQ Tab.ER PO SCH ×4 (08:20→19:20)
[2020-10-06] MEDS: Citalopram 20 MG Tab PO SCH (08:20)
[2020-10-06] MEDS: Fludrocortisone 0.1 MG Tab PO SCH ×2 (08:20→19:20)
[2020-10-06] MEDS: Albuterol/Ipratropium 4 GM Inhalation Spray INH SCH ×4 (08:21→19:19)
[2020-10-06] MEDS: Docusate Sodium 100 MG Cap PO SCH ×2 (08:21→17:27)
[2020-10-06] MEDS: Ferrous Sulfate 325 MG Tab PO SCH (08:22)
[2020-10-06] MEDS: Calcium Carbonate 750 MG Tab.Chew PO SCH (08:23)
[2020-10-06] MEDS: Niacin 500 MG Tab PO SCH ×2 (08:23→17:28)
[2020-10-06] MEDS: Cholecalciferol (Vitamin D3) 25 MCG Tab PO SCH (08:24)
[2020-10-06] MEDS: Cyanocobalamin (Vitamin B12) 1,000 MCG Tab PO SCH (08:26)
[2020-10-06] MEDS: LEVOTHYROXINE SODIUM 137 MCG PO SCH (19:20)
[2020-10-06] MEDS: BUPROPION 300 MG PO SCH (19:20)
[2020-10-06] MEDS: Simvastatin 10 MG Tab PO SCH (19:20)
[2020-10-07] MEDS: Furosemide 20 MG Tab PO SCH ×2 (07:44→15:11)
[2020-10-07] MEDS: Citalopram 20 MG Tab PO SCH (07:45)
[2020-10-07] MEDS: Fludrocortisone 0.1 MG Tab PO SCH ×2 (07:45→19:13)
[2020-10-07] MEDS: Potassium Chloride 20 MEQ Tab.ER PO SCH ×4 (07:45→19:13)
[2020-10-07] MEDS: Ferrous Sulfate 325 MG Tab PO SCH (07:46)
[2020-10-07] MEDS: Docusate Sodium 100 MG Cap PO SCH ×2 (07:46→17:41)
[2020-10-07] MEDS: Albuterol/Ipratropium 4 GM Inhalation Spray INH SCH ×4 (07:46→19:12)
[2020-10-07] MEDS: Niacin 500 MG Tab PO SCH ×2 (07:47→17:40)
[2020-10-07] MEDS: Cholecalciferol (Vitamin D3) 25 MCG Tab PO SCH (07:47)
[2020-10-07] MEDS: Calcium Carbonate 750 MG Tab.Chew PO SCH (07:47)
[2020-10-07] MEDS: Cyanocobalamin (Vitamin B12) 1,000 MCG Tab PO SCH (07:48)
[2020-10-07] MEDS: Ibuprofen 600 MG Tab PO PRN (07:48)
[2020-10-07] MEDS: Simvastatin 10 MG Tab PO SCH (19:13)
[2020-10-07] MEDS: LEVOTHYROXINE SODIUM 137 MCG PO SCH (19:13)
[2020-10-07] MEDS: BUPROPION 300 MG PO SCH (19:13)
[2020-10-08] MEDS: Furosemide 20 MG Tab PO SCH ×2 (07:41→13:27)
[2020-10-08] MEDS: Citalopram 20 MG Tab PO SCH (07:41)
[2020-10-08] MEDS: Fludrocortisone 0.1 MG Tab PO SCH ×2 (07:41→19:26)
[2020-10-08] MEDS: Potassium Chloride 20 MEQ Tab.ER PO SCH ×4 (07:41→19:27)
[2020-10-08] MEDS: Albuterol/Ipratropium 4 GM Inhalation Spray INH SCH ×4 (07:42→19:25)
[2020-10-08] MEDS: Docusate Sodium 100 MG Cap PO SCH ×2 (07:42→17:04)
[2020-10-08] MEDS: Cholecalciferol (Vitamin D3) 25 MCG Tab PO SCH (07:43)
[2020-10-08] MEDS: Niacin 500 MG Tab PO SCH ×2 (07:43→17:03)
[2020-10-08] MEDS: Cyanocobalamin (Vitamin B12) 1,000 MCG Tab PO SCH (07:43)
[2020-10-08] MEDS: Ibuprofen 600 MG Tab PO PRN (07:44)
[2020-10-08] MEDS: Ferrous Sulfate 325 MG Tab PO SCH (07:45)
[2020-10-08] MEDS: Calcium Carbonate 750 MG Tab.Chew PO SCH (07:45)
[2020-10-08] MEDS: LEVOTHYROXINE SODIUM 137 MCG PO SCH (19:27)
[2020-10-08] MEDS: BUPROPION 300 MG PO SCH (19:27)
[2020-10-08] MEDS: Simvastatin 10 MG Tab PO SCH (19:28)
[2020-10-08] MEDS: Menthol/Methyl Salicylate 85 GM Tube TOP PRN (19:29)
[2020-10-09] MEDS: Citalopram 20 MG Tab PO SCH (07:11)
[2020-10-09] MEDS: Docusate Sodium 100 MG Cap PO SCH ×2 (07:12→17:04)
[2020-10-09] MEDS: Albuterol/Ipratropium 4 GM Inhalation Spray INH SCH ×4 (07:12→19:25)
[2020-10-09] MEDS: Ferrous Sulfate 325 MG Tab PO SCH (07:12)
[2020-10-09] MEDS: Fludrocortisone 0.1 MG Tab PO SCH ×2 (07:13→19:25)
[2020-10-09] MEDS: Potassium Chloride 20 MEQ Tab.ER PO SCH ×4 (07:13→19:26)
[2020-10-09] MEDS: Furosemide 20 MG Tab PO SCH ×2 (07:13→13:24)
[2020-10-09] MEDS: Niacin 500 MG Tab PO SCH ×2 (07:14→17:04)
[2020-10-09] MEDS: Cholecalciferol (Vitamin D3) 25 MCG Tab PO SCH (07:14)
[2020-10-09] MEDS: Cyanocobalamin (Vitamin B12) 1,000 MCG Tab PO SCH (07:14)
[2020-10-09] MEDS: Calcium Carbonate 750 MG Tab.Chew PO SCH (07:14)
[2020-10-09] MEDS: Acetaminophen 325 MG Tab PO PRN ×2 (07:15→15:01)
[2020-10-09] MEDS: Ibuprofen 600 MG Tab PO PRN (11:24)
[2020-10-09] MEDS: LEVOTHYROXINE SODIUM 137 MCG PO SCH (19:26)
[2020-10-09] MEDS: BUPROPION 300 MG PO SCH (19:27)
[2020-10-09] MEDS: Simvastatin 10 MG Tab PO SCH (19:27)
[2020-10-09] MEDS: Menthol/Methyl Salicylate 85 GM Tube TOP PRN (19:28)
[2020-10-10] MEDS: Albuterol/Ipratropium 4 GM Inhalation Spray INH SCH ×4 (07:01→19:18)
[2020-10-10] MEDS: Citalopram 20 MG Tab PO SCH (07:01)
[2020-10-10] MEDS: Docusate Sodium 100 MG Cap PO SCH ×3 (07:02→17:04)
[2020-10-10] MEDS: Ferrous Sulfate 325 MG Tab PO SCH (07:02)
[2020-10-10] MEDS: Potassium Chloride 20 MEQ Tab.ER PO SCH ×4 (07:03→19:17)
[2020-10-10] MEDS: Fludrocortisone 0.1 MG Tab PO SCH ×2 (07:03→19:17)
[2020-10-10] MEDS: Niacin 500 MG Tab PO SCH ×2 (07:04→17:04)
[2020-10-10] MEDS: Cyanocobalamin (Vitamin B12) 1,000 MCG Tab PO SCH (07:04)
[2020-10-10] MEDS: Calcium Carbonate 750 MG Tab.Chew PO SCH (07:04)
[2020-10-10] MEDS: Furosemide 20 MG Tab PO SCH ×2 (07:04→13:12)
[2020-10-10] MEDS: Acetaminophen 325 MG Tab PO PRN ×2 (07:05→15:02)
[2020-10-10] MEDS: Cholecalciferol (Vitamin D3) 25 MCG Tab PO SCH (07:05)
[2020-10-10] MEDS: Ibuprofen 600 MG Tab PO PRN (11:06)
[2020-10-10] MEDS: Menthol/Methyl Salicylate 85 GM Tube TOP PRN (19:13)
[2020-10-10] MEDS: Simvastatin 10 MG Tab PO SCH (19:17)
[2020-10-10] MEDS: BUPROPION 300 MG PO SCH (19:17)
[2020-10-10] MEDS: LEVOTHYROXINE SODIUM 137 MCG PO SCH (19:17)
[2020-10-10] MEDS: guaiFENesin/Dextromethorphan 100-10 MG/5 ML Soln 10 ML Cup PO PRN (19:18)
[2020-10-11] MEDS: Fludrocortisone 0.1 MG Tab PO SCH ×2 (08:01→19:32)
[2020-10-11] MEDS: Potassium Chloride 20 MEQ Tab.ER PO SCH ×4 (08:01→19:32)
[2020-10-11] MEDS: Citalopram 20 MG Tab PO SCH (08:01)
[2020-10-11] MEDS: Docusate Sodium 100 MG Cap PO SCH ×3 (08:02→17:28)
[2020-10-11] MEDS: Furosemide 20 MG Tab PO SCH ×2 (08:02→15:55)
[2020-10-11] MEDS: Albuterol/Ipratropium 4 GM Inhalation Spray INH SCH ×4 (08:02→19:31)
[2020-10-11] MEDS: Ferrous Sulfate 325 MG Tab PO SCH (08:03)
[2020-10-11] MEDS: Niacin 500 MG Tab PO SCH ×2 (08:03→17:28)
[2020-10-11] MEDS: Cholecalciferol (Vitamin D3) 25 MCG Tab PO SCH (08:04)
[2020-10-11] MEDS: Calcium Carbonate 750 MG Tab.Chew PO SCH (08:04)
[2020-10-11] MEDS: Cyanocobalamin (Vitamin B12) 1,000 MCG Tab PO SCH (08:05)
[2020-10-11] MEDS: Ibuprofen 600 MG Tab PO PRN ×2 (08:06→17:28)
[2020-10-11] MEDS: Simvastatin 10 MG Tab PO SCH (19:31)
[2020-10-11] MEDS: BUPROPION 300 MG PO SCH (19:31)
[2020-10-11] MEDS: LEVOTHYROXINE SODIUM 137 MCG PO SCH (19:32)
[2020-10-12] MEDS: Albuterol/Ipratropium 4 GM Inhalation Spray INH SCH ×4 (07:03→19:17)
[2020-10-12] MEDS: Citalopram 20 MG Tab PO SCH (07:03)
[2020-10-12] MEDS: Ferrous Sulfate 325 MG Tab PO SCH (07:04)
[2020-10-12] MEDS: Potassium Chloride 20 MEQ Tab.ER PO SCH ×4 (07:04→19:18)
[2020-10-12] MEDS: Docusate Sodium 100 MG Cap PO SCH ×2 (07:04→17:05)
[2020-10-12] MEDS: Fludrocortisone 0.1 MG Tab PO SCH ×2 (07:04→19:18)
[2020-10-12] MEDS: Acetaminophen 325 MG Tab PO PRN ×2 (07:05→15:07)
[2020-10-12] MEDS: Furosemide 20 MG Tab PO SCH ×2 (07:05→13:31)
[2020-10-12] MEDS: Cyanocobalamin (Vitamin B12) 1,000 MCG Tab PO SCH (07:06)
[2020-10-12] MEDS: Calcium Carbonate 750 MG Tab.Chew PO SCH (07:06)
[2020-10-12] MEDS: Cholecalciferol (Vitamin D3) 25 MCG Tab PO SCH (07:06)
[2020-10-12] MEDS: Niacin 500 MG Tab PO SCH ×2 (07:06→17:05)
[2020-10-12] MEDS: Ibuprofen 600 MG Tab PO PRN (11:15)
[2020-10-12] MEDS: LEVOTHYROXINE SODIUM 137 MCG PO SCH (19:19)
[2020-10-12] MEDS: BUPROPION 300 MG PO SCH (19:19)
[2020-10-12] MEDS: Menthol/Methyl Salicylate 85 GM Tube TOP PRN (19:19)
[2020-10-12] MEDS: Simvastatin 10 MG Tab PO SCH (19:19)
[2020-10-13] MEDS: Citalopram 20 MG Tab PO SCH (08:20)
[2020-10-13] MEDS: Potassium Chloride 20 MEQ Tab.ER PO SCH ×4 (08:21→19:32)
[2020-10-13] MEDS: Fludrocortisone 0.1 MG Tab PO SCH ×2 (08:21→19:31)
[2020-10-13] MEDS: Niacin 500 MG Tab PO SCH ×2 (08:22→17:31)
[2020-10-13] MEDS: Furosemide 20 MG Tab PO SCH ×2 (08:22→15:16)
[2020-10-13] MEDS: Calcium Carbonate 750 MG Tab.Chew PO SCH (08:22)
[2020-10-13] MEDS: Cyanocobalamin (Vitamin B12) 1,000 MCG Tab PO SCH (08:23)
[2020-10-13] MEDS: Docusate Sodium 100 MG Cap PO SCH ×2 (08:23→17:31)
[2020-10-13] MEDS: Ferrous Sulfate 325 MG Tab PO SCH (08:23)
[2020-10-13] MEDS: Cholecalciferol (Vitamin D3) 25 MCG Tab PO SCH (08:23)
[2020-10-13] MEDS: Albuterol/Ipratropium 4 GM Inhalation Spray INH SCH ×4 (08:24→19:31)
[2020-10-13] MEDS: LEVOTHYROXINE SODIUM 137 MCG PO SCH (19:32)
[2020-10-13] MEDS: BUPROPION 300 MG PO SCH (19:33)
[2020-10-13] MEDS: Simvastatin 10 MG Tab PO SCH (19:33)
[2020-10-13] MEDS: Menthol/Methyl Salicylate 85 GM Tube TOP PRN (19:34)
[2020-10-14] MEDS: Ibuprofen 600 MG Tab PO PRN ×2 (02:17→17:28)
[2020-10-14] MEDS: Albuterol/Ipratropium 4 GM Inhalation Spray INH SCH ×4 (08:22→19:39)
[2020-10-14] MEDS: Citalopram 20 MG Tab PO SCH (08:22)
[2020-10-14] MEDS: Docusate Sodium 100 MG Cap PO SCH ×2 (08:22→17:27)
[2020-10-14] MEDS: Ferrous Sulfate 325 MG Tab PO SCH (08:23)
[2020-10-14] MEDS: Fludrocortisone 0.1 MG Tab PO SCH ×2 (08:23→19:40)
[2020-10-14] MEDS: Potassium Chloride 20 MEQ Tab.ER PO SCH ×4 (08:23→19:40)
[2020-10-14] MEDS: Calcium Carbonate 750 MG Tab.Chew PO SCH (08:24)
[2020-10-14] MEDS: Niacin 500 MG Tab PO SCH ×2 (08:24→17:27)
[2020-10-14] MEDS: Furosemide 20 MG Tab PO SCH ×2 (08:24→14:26)
[2020-10-14] MEDS: Cholecalciferol (Vitamin D3) 25 MCG Tab PO SCH (08:25)
[2020-10-14] MEDS: Cyanocobalamin (Vitamin B12) 1,000 MCG Tab PO SCH (08:25)
[2020-10-14] MEDS: BUPROPION 300 MG PO SCH (19:41)
[2020-10-14] MEDS: Simvastatin 10 MG Tab PO SCH (19:41)
[2020-10-14] MEDS: LEVOTHYROXINE SODIUM 137 MCG PO SCH (19:41)
[2020-10-14] MEDS: Menthol/Methyl Salicylate 85 GM Tube TOP PRN (19:43)
[2020-10-15] MEDS: Furosemide 20 MG Tab PO SCH ×2 (07:45→13:37)
[2020-10-15] MEDS: Potassium Chloride 20 MEQ Tab.ER PO SCH ×4 (07:46→19:26)
[2020-10-15] MEDS: Citalopram 20 MG Tab PO SCH (07:46)
[2020-10-15] MEDS: Fludrocortisone 0.1 MG Tab PO SCH ×2 (07:47→19:25)
[2020-10-15] MEDS: Ferrous Sulfate 325 MG Tab PO SCH (07:48)
[2020-10-15] MEDS: Cholecalciferol (Vitamin D3) 25 MCG Tab PO SCH (07:48)
[2020-10-15] MEDS: Cyanocobalamin (Vitamin B12) 1,000 MCG Tab PO SCH (07:48)
[2020-10-15] MEDS: Docusate Sodium 100 MG Cap PO SCH ×2 (07:48→17:06)
[2020-10-15] MEDS: Calcium Carbonate 750 MG Tab.Chew PO SCH (07:49)
[2020-10-15] MEDS: Albuterol/Ipratropium 4 GM Inhalation Spray INH SCH ×4 (07:49→19:25)
[2020-10-15] MEDS: Niacin 500 MG Tab PO SCH ×2 (07:49→17:05)
[2020-10-15] MEDS: BUPROPION 300 MG PO SCH (19:26)
[2020-10-15] MEDS: LEVOTHYROXINE SODIUM 137 MCG PO SCH (19:26)
[2020-10-15] MEDS: Menthol/Methyl Salicylate 85 GM Tube TOP PRN (19:27)
[2020-10-15] MEDS: Simvastatin 10 MG Tab PO SCH (19:27)
[2020-10-16] MEDS: Acetaminophen 325 MG Tab PO PRN (03:25)
[2020-10-16] MEDS: Furosemide 20 MG Tab PO SCH ×2 (08:13→14:56)
[2020-10-16] MEDS: Fludrocortisone 0.1 MG Tab PO SCH ×2 (08:13→19:20)
[2020-10-16] MEDS: Potassium Chloride 20 MEQ Tab.ER PO SCH ×4 (08:13→19:20)
[2020-10-16] MEDS: Citalopram 20 MG Tab PO SCH (08:13)
[2020-10-16] MEDS: Ferrous Sulfate 325 MG Tab PO SCH (08:14)
[2020-10-16] MEDS: Niacin 500 MG Tab PO SCH ×2 (08:14→17:30)
[2020-10-16] MEDS: Calcium Carbonate 750 MG Tab.Chew PO SCH (08:14)
[2020-10-16] MEDS: Cyanocobalamin (Vitamin B12) 1,000 MCG Tab PO SCH (08:15)
[2020-10-16] MEDS: Cholecalciferol (Vitamin D3) 25 MCG Tab PO SCH (08:15)
[2020-10-16] MEDS: Docusate Sodium 100 MG Cap PO SCH ×2 (08:16→17:30)
[2020-10-16] MEDS: Albuterol/Ipratropium 4 GM Inhalation Spray INH SCH ×4 (08:16→19:20)
[2020-10-16] MEDS: LEVOTHYROXINE SODIUM 137 MCG PO SCH (19:20)
[2020-10-16] MEDS: Simvastatin 10 MG Tab PO SCH (19:21)
[2020-10-16] MEDS: BUPROPION 300 MG PO SCH (19:21)
[2020-10-17] MEDS: Acetaminophen 325 MG Tab PO PRN ×2 (07:16→14:59)
[2020-10-17] MEDS: Citalopram 20 MG Tab PO SCH (07:16)
[2020-10-17] MEDS: Albuterol/Ipratropium 4 GM Inhalation Spray INH SCH ×4 (07:17→19:20)
[2020-10-17] MEDS: Docusate Sodium 100 MG Cap PO SCH ×2 (07:17→17:13)
[2020-10-17] MEDS: Ferrous Sulfate 325 MG Tab PO SCH (07:18)
[2020-10-17] MEDS: Fludrocortisone 0.1 MG Tab PO SCH ×2 (07:18→19:37)
[2020-10-17] MEDS: Furosemide 20 MG Tab PO SCH ×2 (07:19→13:04)
[2020-10-17] MEDS: Potassium Chloride 20 MEQ Tab.ER PO SCH ×4 (07:19→19:37)
[2020-10-17] MEDS: Niacin 500 MG Tab PO SCH ×2 (07:20→17:13)
[2020-10-17] MEDS: Calcium Carbonate 750 MG Tab.Chew PO SCH (07:20)
[2020-10-17] MEDS: Cyanocobalamin (Vitamin B12) 1,000 MCG Tab PO SCH (07:20)
[2020-10-17] MEDS: Cholecalciferol (Vitamin D3) 25 MCG Tab PO SCH (07:20)
[2020-10-17] MEDS: Ibuprofen 600 MG Tab PO PRN ×2 (11:12→19:38)
[2020-10-17] MEDS: LEVOTHYROXINE SODIUM 137 MCG PO SCH (19:38)
[2020-10-17] MEDS: Simvastatin 10 MG Tab PO SCH (19:38)
[2020-10-17] MEDS: BUPROPION 300 MG PO SCH (19:38)
[2020-10-17] MEDS: Menthol/Methyl Salicylate 85 GM Tube TOP PRN (19:39)
[2020-10-18] MEDS: Fludrocortisone 0.1 MG Tab PO SCH ×2 (08:03→19:34)
[2020-10-18] MEDS: Citalopram 20 MG Tab PO SCH (08:03)
[2020-10-18] MEDS: Potassium Chloride 20 MEQ Tab.ER PO SCH ×4 (08:03→19:34)
[2020-10-18] MEDS: Furosemide 20 MG Tab PO SCH ×2 (08:04→14:11)
[2020-10-18] MEDS: Ferrous Sulfate 325 MG Tab PO SCH (08:05)
[2020-10-18] MEDS: Docusate Sodium 100 MG Cap PO SCH ×2 (08:06→17:25)
[2020-10-18] MEDS: Albuterol/Ipratropium 4 GM Inhalation Spray INH SCH ×4 (08:06→19:34)
[2020-10-18] MEDS: Cyanocobalamin (Vitamin B12) 1,000 MCG Tab PO SCH (08:06)
[2020-10-18] MEDS: Niacin 500 MG Tab PO SCH ×2 (08:06→17:25)
[2020-10-18] MEDS: Cholecalciferol (Vitamin D3) 25 MCG Tab PO SCH (08:06)
[2020-10-18] MEDS: Calcium Carbonate 750 MG Tab.Chew PO SCH (08:07)
[2020-10-18] MEDS: Ibuprofen 600 MG Tab PO PRN (12:19)
[2020-10-18] MEDS: Simvastatin 10 MG Tab PO SCH (19:35)
[2020-10-18] MEDS: LEVOTHYROXINE SODIUM 137 MCG PO SCH (19:35)
[2020-10-18] MEDS: BUPROPION 300 MG PO SCH (19:35)
[2020-10-18] MEDS: Acetaminophen 325 MG Tab PO PRN (19:36)
[2020-10-18] MEDS: Menthol/Methyl Salicylate 85 GM Tube TOP PRN (19:36)
[2020-10-19] MEDS: Citalopram 20 MG Tab PO SCH (07:34)
[2020-10-19] MEDS: Docusate Sodium 100 MG Cap PO SCH ×2 (07:35→17:16)
[2020-10-19] MEDS: Albuterol/Ipratropium 4 GM Inhalation Spray INH SCH ×4 (07:36→19:19)
[2020-10-19] MEDS: Fludrocortisone 0.1 MG Tab PO SCH ×2 (07:37→19:19)
[2020-10-19] MEDS: Ferrous Sulfate 325 MG Tab PO SCH (07:37)
[2020-10-19] MEDS: Furosemide 20 MG Tab PO SCH ×2 (07:38→14:17)
[2020-10-19] MEDS: Potassium Chloride 20 MEQ Tab.ER PO SCH ×4 (07:38→19:19)
[2020-10-19] MEDS: Calcium Carbonate 750 MG Tab.Chew PO SCH (07:39)
[2020-10-19] MEDS: Niacin 500 MG Tab PO SCH ×2 (07:39→17:16)
[2020-10-19] MEDS: Cyanocobalamin (Vitamin B12) 1,000 MCG Tab PO SCH (07:40)
[2020-10-19] MEDS: Cholecalciferol (Vitamin D3) 25 MCG Tab PO SCH (07:41)
[2020-10-19] MEDS: BUPROPION 300 MG PO SCH (19:20)
[2020-10-19] MEDS: Simvastatin 10 MG Tab PO SCH (19:20)
[2020-10-19] MEDS: LEVOTHYROXINE SODIUM 137 MCG PO SCH (19:20)
[2020-10-19] MEDS: Acetaminophen 325 MG Tab PO PRN (19:21)
[2020-10-19] MEDS: Menthol/Methyl Salicylate 85 GM Tube TOP PRN (19:22)
[2020-10-20] MEDS: Citalopram 20 MG Tab PO SCH (07:58)
[2020-10-20] MEDS: Furosemide 20 MG Tab PO SCH ×2 (07:58→13:18)
[2020-10-20] MEDS: Fludrocortisone 0.1 MG Tab PO SCH ×2 (07:58→19:10)
[2020-10-20] MEDS: Potassium Chloride 20 MEQ Tab.ER PO SCH ×4 (07:58→19:10)
[2020-10-20] MEDS: Calcium Carbonate 750 MG Tab.Chew PO SCH (07:59)
[2020-10-20] MEDS: Niacin 500 MG Tab PO SCH ×2 (07:59→17:24)
[2020-10-20] MEDS: Cholecalciferol (Vitamin D3) 25 MCG Tab PO SCH (08:00)
[2020-10-20] MEDS: Cyanocobalamin (Vitamin B12) 1,000 MCG Tab PO SCH (08:03)
[2020-10-20] MEDS: Acetaminophen 325 MG Tab PO PRN (08:03)
[2020-10-20] MEDS: Docusate Sodium 100 MG Cap PO SCH ×2 (08:05→17:24)
[2020-10-20] MEDS: Ferrous Sulfate 325 MG Tab PO SCH (08:06)
[2020-10-20] MEDS: Albuterol/Ipratropium 4 GM Inhalation Spray INH SCH ×4 (08:06→19:09)
[2020-10-20] MEDS: BUPROPION 300 MG PO SCH (19:10)
[2020-10-20] MEDS: LEVOTHYROXINE SODIUM 137 MCG PO SCH (19:10)
[2020-10-20] MEDS: Simvastatin 10 MG Tab PO SCH (19:11)
[2020-10-21] MEDS: Citalopram 20 MG Tab PO SCH (07:19)
[2020-10-21] MEDS: Docusate Sodium 100 MG Cap PO SCH ×2 (07:19→17:06)
[2020-10-21] MEDS: Albuterol/Ipratropium 4 GM Inhalation Spray INH SCH ×4 (07:20→19:03)
[2020-10-21] MEDS: Ferrous Sulfate 325 MG Tab PO SCH (07:20)
[2020-10-21] MEDS: Furosemide 20 MG Tab PO SCH ×2 (07:21→14:10)
[2020-10-21] MEDS: Potassium Chloride 20 MEQ Tab.ER PO SCH ×4 (07:21→19:04)
[2020-10-21] MEDS: Fludrocortisone 0.1 MG Tab PO SCH ×2 (07:21→19:04)
[2020-10-21] MEDS: Niacin 500 MG Tab PO SCH ×2 (07:22→17:06)
[2020-10-21] MEDS: Calcium Carbonate 750 MG Tab.Chew PO SCH (07:22)
[2020-10-21] MEDS: Cholecalciferol (Vitamin D3) 25 MCG Tab PO SCH (07:23)
[2020-10-21] MEDS: Cyanocobalamin (Vitamin B12) 1,000 MCG Tab PO SCH (07:23)
[2020-10-21] MEDS: Ibuprofen 600 MG Tab PO PRN (12:02)
[2020-10-21] MEDS: Acetaminophen 325 MG Tab PO PRN (15:30)
[2020-10-21] MEDS: BUPROPION 300 MG PO SCH (19:04)
[2020-10-21] MEDS: LEVOTHYROXINE SODIUM 137 MCG PO SCH (19:04)
[2020-10-21] MEDS: Menthol/Methyl Salicylate 85 GM Tube TOP PRN (19:04)
[2020-10-21] MEDS: Simvastatin 10 MG Tab PO SCH (19:04)
[2020-10-22] MEDS: Acetaminophen 325 MG Tab PO PRN ×2 (07:02→15:08)
[2020-10-22] MEDS: Citalopram 20 MG Tab PO SCH (07:03)
[2020-10-22] MEDS: Docusate Sodium 100 MG Cap PO SCH ×2 (07:03→17:10)
[2020-10-22] MEDS: Albuterol/Ipratropium 4 GM Inhalation Spray INH SCH ×4 (07:04→19:07)
[2020-10-22] MEDS: Fludrocortisone 0.1 MG Tab PO SCH ×2 (07:04→19:08)
[2020-10-22] MEDS: Potassium Chloride 20 MEQ Tab.ER PO SCH ×4 (07:04→19:08)
[2020-10-22] MEDS: Furosemide 20 MG Tab PO SCH ×2 (07:04→13:14)
[2020-10-22] MEDS: Ferrous Sulfate 325 MG Tab PO SCH (07:04)
[2020-10-22] MEDS: Cholecalciferol (Vitamin D3) 25 MCG Tab PO SCH (07:05)
[2020-10-22] MEDS: Calcium Carbonate 750 MG Tab.Chew PO SCH (07:05)
[2020-10-22] MEDS: Niacin 500 MG Tab PO SCH ×2 (07:05→17:10)
[2020-10-22] MEDS: Cyanocobalamin (Vitamin B12) 1,000 MCG Tab PO SCH (07:05)
[2020-10-22] MEDS: Ibuprofen 600 MG Tab PO PRN (11:11)
[2020-10-22] MEDS: BUPROPION 300 MG PO SCH (19:08)
[2020-10-22] MEDS: LEVOTHYROXINE SODIUM 137 MCG PO SCH (19:08)
[2020-10-22] MEDS: Simvastatin 10 MG Tab PO SCH (19:08)
[2020-10-22] MEDS: Menthol/Methyl Salicylate 85 GM Tube TOP PRN (19:09)
[2020-10-23] MEDS: Citalopram 20 MG Tab PO SCH (07:10)
[2020-10-23] MEDS: Acetaminophen 325 MG Tab PO PRN ×2 (07:10→15:13)
[2020-10-23] MEDS: Ferrous Sulfate 325 MG Tab PO SCH (07:11)
[2020-10-23] MEDS: Albuterol/Ipratropium 4 GM Inhalation Spray INH SCH ×4 (07:11→19:17)
[2020-10-23] MEDS: Docusate Sodium 100 MG Cap PO SCH ×2 (07:11→16:59)
[2020-10-23] MEDS: Furosemide 20 MG Tab PO SCH ×2 (07:12→14:30)
[2020-10-23] MEDS: Potassium Chloride 20 MEQ Tab.ER PO SCH ×4 (07:12→19:17)
[2020-10-23] MEDS: Fludrocortisone 0.1 MG Tab PO SCH ×2 (07:12→19:17)
[2020-10-23] MEDS: Niacin 500 MG Tab PO SCH ×2 (07:12→16:59)
[2020-10-23] MEDS: Cyanocobalamin (Vitamin B12) 1,000 MCG Tab PO SCH (07:13)
[2020-10-23] MEDS: Calcium Carbonate 750 MG Tab.Chew PO SCH (07:13)
[2020-10-23] MEDS: Cholecalciferol (Vitamin D3) 25 MCG Tab PO SCH (07:13)
[2020-10-23] MEDS: Ibuprofen 600 MG Tab PO PRN (11:11)
[2020-10-23] MEDS: LEVOTHYROXINE SODIUM 137 MCG PO SCH (19:18)
[2020-10-23] MEDS: BUPROPION 300 MG PO SCH (19:18)
[2020-10-23] MEDS: Simvastatin 10 MG Tab PO SCH (19:18)
[2020-10-24] MEDS: Fludrocortisone 0.1 MG Tab PO SCH ×2 (07:46→19:10)
[2020-10-24] MEDS: Docusate Sodium 100 MG Cap PO SCH ×2 (07:46→17:43)
[2020-10-24] MEDS: Citalopram 20 MG Tab PO SCH (07:46)
[2020-10-24] MEDS: Furosemide 20 MG Tab PO SCH ×2 (07:47→13:31)
[2020-10-24] MEDS: Potassium Chloride 20 MEQ Tab.ER PO SCH ×4 (07:47→19:10)
[2020-10-24] MEDS: Albuterol/Ipratropium 4 GM Inhalation Spray INH SCH ×4 (07:47→19:10)
[2020-10-24] MEDS: Cyanocobalamin (Vitamin B12) 1,000 MCG Tab PO SCH (07:48)
[2020-10-24] MEDS: Niacin 500 MG Tab PO SCH ×2 (07:48→17:43)
[2020-10-24] MEDS: Calcium Carbonate 750 MG Tab.Chew PO SCH (07:48)
[2020-10-24] MEDS: Ferrous Sulfate 325 MG Tab PO SCH (07:48)
[2020-10-24] MEDS: Cholecalciferol (Vitamin D3) 25 MCG Tab PO SCH (07:48)
[2020-10-24] MEDS: LEVOTHYROXINE SODIUM 137 MCG PO SCH (19:10)
[2020-10-24] MEDS: Simvastatin 10 MG Tab PO SCH (19:10)
[2020-10-24] MEDS: BUPROPION 300 MG PO SCH (19:10)
[2020-10-25] MEDS: Citalopram 20 MG Tab PO SCH (07:11)
[2020-10-25] MEDS: Albuterol/Ipratropium 4 GM Inhalation Spray INH SCH ×4 (07:12→19:17)
[2020-10-25] MEDS: Fludrocortisone 0.1 MG Tab PO SCH ×2 (07:12→19:18)
[2020-10-25] MEDS: Ferrous Sulfate 325 MG Tab PO SCH (07:12)
[2020-10-25] MEDS: Docusate Sodium 100 MG Cap PO SCH ×2 (07:12→17:07)
[2020-10-25] MEDS: Furosemide 20 MG Tab PO SCH ×2 (07:13→13:45)
[2020-10-25] MEDS: Calcium Carbonate 750 MG Tab.Chew PO SCH (07:13)
[2020-10-25] MEDS: Potassium Chloride 20 MEQ Tab.ER PO SCH ×4 (07:13→19:18)
[2020-10-25] MEDS: Niacin 500 MG Tab PO SCH ×2 (07:13→17:07)
[2020-10-25] MEDS: Cholecalciferol (Vitamin D3) 25 MCG Tab PO SCH (07:14)
[2020-10-25] MEDS: Acetaminophen 325 MG Tab PO PRN ×2 (07:14→15:04)
[2020-10-25] MEDS: Cyanocobalamin (Vitamin B12) 1,000 MCG Tab PO SCH (07:14)
[2020-10-25] MEDS: Ibuprofen 600 MG Tab PO PRN (11:26)
[2020-10-25] MEDS: LEVOTHYROXINE SODIUM 137 MCG PO SCH (19:19)
[2020-10-25] MEDS: BUPROPION 300 MG PO SCH (19:19)
[2020-10-25] MEDS: Simvastatin 10 MG Tab PO SCH (19:19)
[2020-10-25] MEDS: Menthol/Methyl Salicylate 85 GM Tube TOP PRN (19:20)
[2020-10-26] MEDS: Furosemide 20 MG Tab PO SCH ×2 (07:46→15:04)
[2020-10-26] MEDS: Potassium Chloride 20 MEQ Tab.ER PO SCH ×4 (07:46→19:23)
[2020-10-26] MEDS: Fludrocortisone 0.1 MG Tab PO SCH ×2 (07:46→19:23)
[2020-10-26] MEDS: Citalopram 20 MG Tab PO SCH (07:47)
[2020-10-26] MEDS: Docusate Sodium 100 MG Cap PO SCH ×2 (07:47→17:25)
[2020-10-26] MEDS: Ferrous Sulfate 325 MG Tab PO SCH (07:48)
[2020-10-26] MEDS: Albuterol/Ipratropium 4 GM Inhalation Spray INH SCH ×4 (07:48→19:22)
[2020-10-26] MEDS: Niacin 500 MG Tab PO SCH ×2 (07:49→17:25)
[2020-10-26] MEDS: Calcium Carbonate 750 MG Tab.Chew PO SCH (07:49)
[2020-10-26] MEDS: Cholecalciferol (Vitamin D3) 25 MCG Tab PO SCH (07:50)
[2020-10-26] MEDS: Cyanocobalamin (Vitamin B12) 1,000 MCG Tab PO SCH (07:50)
[2020-10-26] MEDS: Ibuprofen 600 MG Tab PO PRN (07:50)
[2020-10-26] MEDS: Simvastatin 10 MG Tab PO SCH (19:24)
[2020-10-26] MEDS: BUPROPION 300 MG PO SCH (19:24)
[2020-10-26] MEDS: LEVOTHYROXINE SODIUM 137 MCG PO SCH (19:24)
[2020-10-26] MEDS: Menthol/Methyl Salicylate 85 GM Tube TOP PRN (19:25)
[2020-10-27] MEDS: Citalopram 20 MG Tab PO SCH (07:46)
[2020-10-27] MEDS: Furosemide 20 MG Tab PO SCH ×2 (07:46→14:34)
[2020-10-27] MEDS: Potassium Chloride 20 MEQ Tab.ER PO SCH ×4 (07:46→19:12)
[2020-10-27] MEDS: Calcium Carbonate 750 MG Tab.Chew PO SCH (07:47)
[2020-10-27] MEDS: Cholecalciferol (Vitamin D3) 25 MCG Tab PO SCH (07:47)
[2020-10-27] MEDS: Niacin 500 MG Tab PO SCH ×2 (07:47→18:23)
[2020-10-27] MEDS: Fludrocortisone 0.1 MG Tab PO SCH ×2 (07:47→19:12)
[2020-10-27] MEDS: Cyanocobalamin (Vitamin B12) 1,000 MCG Tab PO SCH (07:47)
[2020-10-27] MEDS: Ferrous Sulfate 325 MG Tab PO SCH (07:48)
[2020-10-27] MEDS: Ibuprofen 600 MG Tab PO PRN (07:48)
[2020-10-27] MEDS: Albuterol/Ipratropium 4 GM Inhalation Spray INH SCH ×4 (07:48→19:11)
[2020-10-27] MEDS: Docusate Sodium 100 MG Cap PO SCH ×2 (07:48→18:23)
--- NOTE | 2020-10-27 09:42 | PCM.PN ---
- General Info Date of Service: 10/27/20 Admission Dx/Problem (Free Text): 1. Myotonic dystrophy with secondary weakness 2. CHF 3. O2 dependent COPD Functional Status: Reports: Pain Controlled, Tolerating Diet, Ambulating (With assist), Urinating, New Symptoms (Mild intermittent generalized arthralgias chronic in nature for several years however increased today) Pain Score: 7 - Review of Systems General: Reports: Weakness (Stable chronic), Fatigue (Stable chronic). Denies: Fever, Malaise, Chills, Night Sweats, Appetite (Adequate) HEENT: Reports: No Symptoms. Denies: Ear Pain, Eye Pain, Headaches, Post Nasal Drip, Sinus Congestion, Sore Throat, Rhinitis, Visual Changes Pulmonary: Reports: No Symptoms, Other (Still O2 dependent). Denies: Shortness of Breath, Pleuritic Chest Pain, Cough, Sputum, Wheezing Cardiovascular: Reports: Edema (Stable dependent). Denies: Chest Pain, Palpitations, Dyspnea on Exertion, Orthopnea, Lightheadedness Gastrointestinal: Reports: No Symptoms, Other (Normal bowel movement yesterday by patient's history). Denies: Abdominal Pain, Constipation, Decreased Appetite, Diarrhea, Difficulty Swallowing, Flatus, Hematochezia, Melena, Nausea, Vomiting Genitourinary: Reports: No Symptoms. Denies: Dysuria, Frequency, Burning, Pain, Urgency, Hematuria, Retention, Flank Pain Musculoskeletal: Reports: Joint Pain (Generalized arthralgias as above). Denies: Neck Pain, Back Pain, Joint Swelling Skin: Reports: No Symptoms. Denies: Bruising Neurological: Reports: Pre-Existing Deficit (Stable chronic weakness as above), Difficulty Walking (Stable chronic), Weakness (As above) Psychiatric: Reports: Depression (Stable mild), Anxiety (Stable mild). Denies: Confusion, Agitation, Cravings, Hallucinations - Patient Data Vitals - Most Recent: Last Vital Signs Temp 36.5 C 10/27/20 08:00 Pulse 56 L 10/17/20 08:00 Resp 16 10/17/20 08:00 BP 98/48 L 10/17/20 08:00 Pulse Ox 97 10/24/20 08:00 Vital Signs - 24 hr 10/26/20 10/27/20 20:00 08:00 Temperature [ 36.5 C 36.5 C Temporal] Weight - Most Recent: 83.716 kg I&O - Last 24 Hours: Intake & Output 10/26/20 10/27/20 10/27/20 22:59 06:59 14:59 Intake Total 640 Balance 640 Imaging Impressions - Last 24 Hours: None Lab Results Last 24 Hours: None Sandor Results Last 24 Hours: None Med Orders - Current: Current Medications Acetaminophen (Tylenol) 650 mg PO Q4H PRN PRN Reason: Pain Last Admin: 10/25/20 15:04 Dose: 650 mg Documented by: Al Hydroxide/Mg Hydroxide (Mag-Al Plus) 30 ml PO Q4H PRN PRN Reason: Indigestion Last Admin: 10/04/20 09:32 Dose: 30 ml Documented by: Albuterol/Ipratropium (Combivent Respimat) 0 gm INH QID [facility] Last Admin: 10/27/20 07:48 Dose: 1 puff Documented by: Albuterol/Ipratropium (Combivent Respimat) 0 gm INH Q4H PRN PRN Reason: Dyspnea Artificial Tears (Liquitears 1.4% Ophth Soln) 1 ml EYEBOTH QID PRN PRN Reason: Dry Eyes Last Admin: 09/08/20 14:02 Dose: 2 drop Documented by: Bisacodyl (Dulcolax) 5 mg PO DAILY PRN PRN Reason: Constipation Last Admin: 10/04/20 09:28 Dose: 5 mg Documented by: Calcium Carbonate/Glycine (Tums Extra Strength) 1,500 mg PO DAILY [facility] Last Admin: 10/27/20 07:47 Dose: 1,500 mg Documented by: Cholecalciferol (Vitamin D3) 25 mcg PO DAILY [facility] Last Admin: 10/27/20 07:47 Dose: 25 mcg Documented by: Citalopram Hydrobromide (Celexa) 20 mg PO QAM [facility] Last Admin: 10/27/20 07:46 Dose: 20 mg Documented by: Cyanocobalamin (Vitamin B12) 1,000 mcg PO QAM [facility] Last Admin: 10/27/20 07:47 Dose: 1,000 mcg Documented by: Docusate Sodium (Colace) 100 mg PO BID [facility] Last Admin: 10/27/20 07:48 Dose: 100 mg Documented by: Ferrous Sulfate (Ferrous Sulfate) 325 mg PO WITHBREAKFAST [facility] Last Admin: 10/27/20 07:48 Dose: 325 mg Documented by: Fludrocortisone Acetate (Florinef) 0.1 mg PO BEDTIME [facility] Last Admin: 10/26/20 19:23 Dose: 0.1 mg Documented by: Fludrocortisone Acetate (Florinef) 0.2 mg PO QAM [facility] Last Admin: 10/27/20 07:47 Dose: 0.2 mg Documented by: Furosemide (Lasix) 20 mg PO BID@08,1400 [facility] Last Admin: 10/27/20 07:46 Dose: 20 mg Documented by: Guaifenesin/Dextromethorphan (Robitussin Dm) 10 ml PO Q4H PRN PRN Reason: Cough Last Admin: 10/10/20 19:18 Dose: 10 ml Documented by: Ibuprofen (Motrin) 600 mg PO Q6H PRN PRN Reason: Breakthrough Pain Last Admin: 10/27/20 07:48 Dose: 600 mg Documented by: Magnesium Hydroxide (Milk Of Magnesia) 30 ml PO DAILY PRN PRN Reason: Constipation Last Admin: 10/03/20 19:43 Dose: 30 ml Documented by: Methyl Salicylate (Icy Hot Cream) 1 gm TOP QID PRN PRN Reason: Pain (mild 1-3) Last Admin: 10/26/20 19:25 Dose: 1 applic Documented by: Niacin (Niacin) 500 mg PO BID [facility] Last Admin: 10/27/20 07:47 Dose: 500 mg Documented by: Levothyroxine Sodium (137 Mcg Tablets) 137 mcg PO BEDTIME [facility] Last Admin: 10/26/20 19:24 Dose: 137 mcg Documented by: Bupropion Xl 300mg (Tablets) 1 each PO BEDTIME [facility] Last Admin: 10/26/20 19:24 Dose: 1 each Documented by: Potassium Chloride (Klor-Con M20) 40 meq PO QID [facility] Last Admin: 10/27/20 07:46 Dose: 40 meq Documented by: Simvastatin (Zocor) 10 mg PO BEDTIME [facility] Last Admin: 10/26/20 19:24 Dose: 10 mg Documented by: Discontinued Medications Albuterol/Ipratropium (Duoneb 3.0-0.5 Mg/3 Ml) 3 ml NEB Q4HRRT PRN PRN Reason: Dyspnea Last Admin: 07/04/20 08:04 Dose: 3 ml Documented by: Albuterol/Ipratropium (Duoneb 3.0-0.5 Mg/3 Ml) 3 ml NEB QIDRT [facility] Last Admin: 09/27/20 08:09 Dose: 3 ml Documented by: Furosemide (Lasix) 20 mg PO BID [facility] Last Admin: 08/14/20 08:52 Dose: 20 mg Documented by: Influenza Virus Vaccine (Afluria Quad (3yr Up)) 60 mcg IM .ONCE ONE Stop: 09/05/20 10:01 Last Admin: 09/05/20 10:16 Dose: 60 mcg Documented by: - Exam Quality Assessment: Supplemental Oxygen, DVT Prophylaxis. No: Central Line/PICC, Urine Catheter, Skin Breakdown, Restraints General: Alert, Oriented, Cooperative, No Acute Distress HEENT: Pupils Equal, Pupils Reactive, EOMI, Mucous Membr. Moist/[place]. No: Scleral Icterus Neck: Supple, Trachea Midline, No JVD, No Thyromegaly, +2 Carotid Pulse wo Bruit. No: JVD Lungs: Normal Respiratory Effort, Rales (Stable mild bilateral basilar). No: Rhonchi, Rub, Stridor, Wheezing Cardiovascular: Regular Rate, Regular Rhythm, No Murmurs. No: Gallops, Rubs GI/Abdominal Exam: Normal Bowel Sounds, Soft, Non-Tender, No Organomegaly, No Distention, No Abnormal Bruit, No Mass. No: Guarding (Female) Exam: Deferred Back Exam: Normal Inspection, Full Range of Motion. No: CVA Tenderness (L), CVA Tenderness (R), Muscle Spasm Extremities: Normal Range of Motion, Non-Tender, Normal Capillary Refill, Pedal Edema (Stable mild lymphedema of the lower extremities). No: Lurdes's Sign Peripheral Pulses: 2+: Radial (L), Radial (R), Dorsalis Pedis (L), Dorsalis Pedis (R) Skin: Warm, Dry, Intact. No: Rash, Ecchymosis Neurological: No New Focal Deficit, Other (Stable generalized weakness) Psy/Mental Status: Alert, Anxious (Mild mild), Depressed. No: Agitated, Hallucinations, Withdrawal Symptoms Sepsis Event Note - Evaluation Sepsis Screening Result: No Definite Risk - Focused Exam Vital Signs: Vital Signs Temp 10/27/20 08:00 36.5 C - Problem List & Annotations (1) Steinert myotonic dystrophy syndrome SNOMED Code(s): 85611803 Code(s): G71.11 - MYOTONIC MUSCULAR DYSTROPHY Status: Chronic Priority: Medium Current Visit: Yes Annotation/Comment:: Stable by history and today's exam. Physical therapy in effect. Continue current medical therapy. Repeat blood work in 2 months. (2) CHF, Congestive heart failure SNOMED Code(s): 99251875 Code(s): I50.9 - HEART FAILURE, UNSPECIFIED Status: Chronic Priority: Medium Current Visit: Yes Annotation/Comment:: Patient is still O2 dependent with O2 sat of 96-97% on 3 L/min by nasal cannula. No recent chest pain or anginal type symptoms. Note previous progressive nonspecific bilateral lower lobe atelectasis versus nonspecific changes, right greater than left, with CT scan of the chest performed on 12/29/19. Chest x-ray, PA and lateral, on 04/25/20 showed stable bilateral lower lobe atelectasis with no significant evidence of CHF. Previous CT scan in December as above did show evidence of atelectasis and mild pleural effusions consistent with CHF. No significant CHF by clinical exam today. Yearly blood work, EKG, chest x-ray, etc. were conducted on 04/25/20. Improved/stable lateral wall cardiac ischemia by EKG since April 2019 with resolved first-degree AV block and stable complete bifascicular bundle-branch block. Stable dependent edema with the patient having a stable weight today and previously intentionally losing 13.7 kg. Note previous dietary noncompliance, however much improved. Previous discontinuation of high protein Glucerna supplements as snacks secondary to her previous weight gain. Dietary consultation in effect. Activity level is overall low. An echocardiogram had also been performed on 12/28/19 with excellent ejection fraction of 5060 percent.The patient's CODE STATUS was previously addressed per request from the nursing staff with the patient wishing to continue to be a FULL CODE. Continue to observe closely. Note previous history of PVCs, complete right bundle branch block/bifascicular bundle-branch block, first-degree AV block, severe dyslipidemia hypokalemia, hypophosphatemia, and hyponatremia. Mild persistent hypertriglyceridemia with borderline hypernatremia on 04/25. Note normal magnesium on the potassium, and phosphate levels on 04/25. Continue to observe for now with no further change in medical therapy. Further cardiology workup and/or consultation depending on her clinical course. Note Increase of her Lasix therapy, etc. on 12/21/19 with overall good clinical results. Repeat blood work in 2 months. (3) Tardive dyskinesia SNOMED Code(s): 900650065 Code(s): G24.01 - DRUG INDUCED SUBACUTE DYSKINESIA Status: Chronic Priority: Medium Current Visit: Yes Annotation/Comment:: Stable by history. Her perioral tardive dyskinesia actually increased after discontinuation of previous chronic Reglan therapy with no other aggravating medications noted. Neurological status is otherwise stable. Note that patient does have complete dentures uppers and lowers, which does tend to aggravate her problem. No significant clinical relevance at this time with no change in medical therapy for now. (4) COPD (chronic obstructive pulmonary disease) SNOMED Code(s): 02588489 Code(s): J44.9 - CHRONIC OBSTRUCTIVE PULMONARY DISEASE, UNSPECIFIED Status: Chronic Priority: Medium Current Visit: Yes Qualifiers: COPD type: emphysema Emphysema type: panlobular Qualified Code(s): J43.1 - Panlobular emphysema Annotation/Comment:: As above. O2 dependent COPD stable by history with no bronchitic symptoms at this time. Continue current medical therapy. Note chronic bilateral lower lobe atelectasis with incentive spirometry and current O2 therapy at 3 L/m by nasal cannula as above. No evidence of pneumonia or significant bronchitis despite chest x-ray report on 04/25/20. Patient does have a previous history of distant postoperative respiratory distress, although no complications after previous dental surgery. Patient has been changed from previous nebulizer therapy to inhalers secondary to current COVID-19 pandemic. (5) Hyperlipidemia SNOMED Code(s): 57450769 Code(s): E78.5 - HYPERLIPIDEMIA, UNSPECIFIED Status: Chronic Priority: Medium Current Visit: Yes Annotation/Comment:: As above. Previous history of severe dyslipidemia with aggressive medical therapy at this time. Dietary compliance has improved with intentional weight loss as above. No change in medical therapy for now with previous history of CPK elevation. (6) Hypothyroidism SNOMED Code(s): 65506765 Code(s): E03.9 - HYPOTHYROIDISM, UNSPECIFIED Status: Chronic Priority: Medium Current Visit: Yes Annotation/Comment:: TSH normal on 04/25/20. No other thyroid type symptoms. (7) Mixed anxiety and depressive disorder SNOMED Code(s): 999110963 Code(s): F41.8 - OTHER SPECIFIED ANXIETY DISORDERS Status: Chronic Priority: Medium Current Visit: Yes Annotation/Comment:: Stable by history from the patient and nursing staff, although mild persistent anxious and depressive affect today. Observe for now. Previous worsening of her anxiety depression disorder with Wellbutrin SR therapy increased on 12/21/19. By my clinical evaluation her symptoms have improved since that time, although she still needs to be watched closely by nursing staff, etc.. Patient is still relatively active with physical therapy, however she is still often alone in her room. The patient was once again encouraged to become more active with social activities, etc. with nursing staff also encouraged to help the patient be more interactive. (8) Osteoarthritis SNOMED Code(s): 827243157 Code(s): M19.90 - UNSPECIFIED OSTEOARTHRITIS, UNSPECIFIED SITE Status: Rehabilitation Caseworker sally Priority: Medium Current Visit: Yes Annotation/Comment:: Occasional nonspecific generalized arthralgias with muscle rub, etc. already ordered. Observe this and her chronic headaches for now. Note previous discontinuation of Ultram. PT in effect as above. Note status post bilateral ankle ORIF secondary to fractures. Previous recurrent falls in February 2019 have improved with no recent significant falls or injuries. (9) Vitamin B12 deficiency (non anemic) SNOMED Code(s): 48475514 Code(s): E53.8 - DEFICIENCY OF OTHER SPECIFIED B GROUP VITAMINS Status: Chronic Priority: Medium Current Visit: No Annotation/Comment:: Persistent macrocytosis as above with normal folic acid and vitamin B 12 level on 04/25/2020. Observe for now. (10) Hypoalbuminemia SNOMED Code(s): 742386082 Code(s): E88.09 - OTH DISORDERS OF PLASMA-PROTEIN METABOLISM, NEC Status: Chronic Priority: Medium Current Visit: Yes Annotation/Comment:: Chronic problem. Glucerna high-protein has been discontinued per recommendations from dietitian secondary to persistent weight gain. Continue high-protein diet as above. Observe for now. - Problem List Review Problem List Initiated/Reviewed/Updated: Yes - Assessment Assessment:: As above. - Plan Plan:: As above. Extensive precautions were given to the patient, who is in agreement with the treatment plan. The patient will be recertified for an additional 60 days with long-term chronic swing bed care required secondary to multiple health issues as above.
[2020-10-27] MEDS: Acetaminophen 325 MG Tab PO SCH ×2 (14:34→18:23)
[2020-10-27] MEDS: BUPROPION 300 MG PO SCH (19:12)
[2020-10-27] MEDS: Simvastatin 10 MG Tab PO SCH (19:12)
[2020-10-27] MEDS: LEVOTHYROXINE SODIUM 137 MCG PO SCH (19:12)
[2020-10-27] MEDS: Menthol/Methyl Salicylate 85 GM Tube TOP PRN (19:13)
[2020-10-28] MEDS: Furosemide 20 MG Tab PO SCH ×2 (07:33→13:18)
[2020-10-28] MEDS: Potassium Chloride 20 MEQ Tab.ER PO SCH ×4 (07:33→19:29)
[2020-10-28] MEDS: Citalopram 20 MG Tab PO SCH (07:33)
[2020-10-28] MEDS: Ferrous Sulfate 325 MG Tab PO SCH (07:34)
[2020-10-28] MEDS: Acetaminophen 325 MG Tab PO SCH ×3 (07:34→17:02)
[2020-10-28] MEDS: Docusate Sodium 100 MG Cap PO SCH ×2 (07:34→17:02)
[2020-10-28] MEDS: Fludrocortisone 0.1 MG Tab PO SCH ×2 (07:34→19:29)
[2020-10-28] MEDS: Cyanocobalamin (Vitamin B12) 1,000 MCG Tab PO SCH (07:35)
[2020-10-28] MEDS: Calcium Carbonate 750 MG Tab.Chew PO SCH (07:35)
[2020-10-28] MEDS: Niacin 500 MG Tab PO SCH ×2 (07:35→17:02)
[2020-10-28] MEDS: Cholecalciferol (Vitamin D3) 25 MCG Tab PO SCH (07:35)
[2020-10-28] MEDS: Albuterol/Ipratropium 4 GM Inhalation Spray INH SCH ×4 (07:36→19:29)
[2020-10-28] MEDS: LEVOTHYROXINE SODIUM 137 MCG PO SCH (19:29)
[2020-10-28] MEDS: BUPROPION 300 MG PO SCH (19:30)
[2020-10-28] MEDS: Menthol/Methyl Salicylate 85 GM Tube TOP PRN (19:30)
[2020-10-28] MEDS: Simvastatin 10 MG Tab PO SCH (19:30)
[2020-10-28] MEDS: Ibuprofen 600 MG Tab PO PRN (19:32)
[2020-10-29] MEDS: Cyanocobalamin (Vitamin B12) 1,000 MCG Tab PO SCH (07:42)
[2020-10-29] MEDS: Niacin 500 MG Tab PO SCH ×2 (07:42→17:16)
[2020-10-29] MEDS: Cholecalciferol (Vitamin D3) 25 MCG Tab PO SCH (07:42)
[2020-10-29] MEDS: Acetaminophen 325 MG Tab PO SCH ×3 (07:42→17:16)
[2020-10-29] MEDS: Calcium Carbonate 750 MG Tab.Chew PO SCH (07:42)
[2020-10-29] MEDS: Docusate Sodium 100 MG Cap PO SCH ×2 (07:42→17:16)
[2020-10-29] MEDS: Citalopram 20 MG Tab PO SCH (07:43)
[2020-10-29] MEDS: Potassium Chloride 20 MEQ Tab.ER PO SCH ×4 (07:43→19:08)
[2020-10-29] MEDS: Furosemide 20 MG Tab PO SCH ×2 (07:43→13:10)
[2020-10-29] MEDS: Albuterol/Ipratropium 4 GM Inhalation Spray INH SCH ×4 (07:44→19:07)
[2020-10-29] MEDS: Ferrous Sulfate 325 MG Tab PO SCH (07:44)
[2020-10-29] MEDS: Fludrocortisone 0.1 MG Tab PO SCH ×2 (07:44→19:08)
[2020-10-29] MEDS: BUPROPION 300 MG PO SCH (19:09)
[2020-10-29] MEDS: LEVOTHYROXINE SODIUM 137 MCG PO SCH (19:09)
[2020-10-29] MEDS: Simvastatin 10 MG Tab PO SCH (19:09)
[2020-10-29] MEDS: Menthol/Methyl Salicylate 85 GM Tube TOP PRN (19:09)
[2020-10-29] MEDS: Ibuprofen 600 MG Tab PO PRN (19:30)
[2020-10-30] MEDS: Ibuprofen 600 MG Tab PO PRN (01:30)
[2020-10-30] MEDS: Albuterol/Ipratropium 4 GM Inhalation Spray INH SCH ×4 (07:02→19:26)
[2020-10-30] MEDS: Ferrous Sulfate 325 MG Tab PO SCH (07:02)
[2020-10-30] MEDS: Docusate Sodium 100 MG Cap PO SCH ×2 (07:02→17:05)
[2020-10-30] MEDS: Citalopram 20 MG Tab PO SCH (07:02)
[2020-10-30] MEDS: Potassium Chloride 20 MEQ Tab.ER PO SCH ×4 (07:03→19:25)
[2020-10-30] MEDS: Fludrocortisone 0.1 MG Tab PO SCH ×2 (07:03→19:24)
[2020-10-30] MEDS: Niacin 500 MG Tab PO SCH ×2 (07:03→17:05)
[2020-10-30] MEDS: Furosemide 20 MG Tab PO SCH ×2 (07:03→13:11)
[2020-10-30] MEDS: Acetaminophen 325 MG Tab PO SCH ×3 (07:04→17:06)
[2020-10-30] MEDS: Calcium Carbonate 750 MG Tab.Chew PO SCH (07:04)
[2020-10-30] MEDS: Cholecalciferol (Vitamin D3) 25 MCG Tab PO SCH (07:05)
[2020-10-30] MEDS: Cyanocobalamin (Vitamin B12) 1,000 MCG Tab PO SCH (07:05)
[2020-10-30] MEDS: LEVOTHYROXINE SODIUM 137 MCG PO SCH (19:25)
[2020-10-30] MEDS: BUPROPION 300 MG PO SCH (19:25)
[2020-10-30] MEDS: Simvastatin 10 MG Tab PO SCH (19:25)
[2020-10-31] MEDS: Acetaminophen 325 MG Tab PO PRN (05:31)
[2020-10-31] MEDS: Albuterol/Ipratropium 4 GM Inhalation Spray INH SCH ×4 (07:22→19:21)
[2020-10-31] MEDS: Citalopram 20 MG Tab PO SCH (07:23)
[2020-10-31] MEDS: Docusate Sodium 100 MG Cap PO SCH ×2 (07:23→17:06)
[2020-10-31] MEDS: Ferrous Sulfate 325 MG Tab PO SCH (07:23)
[2020-10-31] MEDS: Fludrocortisone 0.1 MG Tab PO SCH ×2 (07:24→19:21)
[2020-10-31] MEDS: Potassium Chloride 20 MEQ Tab.ER PO SCH ×4 (07:24→19:21)
[2020-10-31] MEDS: Furosemide 20 MG Tab PO SCH ×2 (07:24→13:56)
[2020-10-31] MEDS: Niacin 500 MG Tab PO SCH ×2 (07:24→17:06)
[2020-10-31] MEDS: Acetaminophen 325 MG Tab PO SCH ×3 (07:25→17:06)
[2020-10-31] MEDS: Calcium Carbonate 750 MG Tab.Chew PO SCH (07:25)
[2020-10-31] MEDS: Cholecalciferol (Vitamin D3) 25 MCG Tab PO SCH (07:26)
[2020-10-31] MEDS: Cyanocobalamin (Vitamin B12) 1,000 MCG Tab PO SCH (07:26)
[2020-10-31] MEDS: Ibuprofen 600 MG Tab PO PRN (07:26)
[2020-10-31] MEDS: Simvastatin 10 MG Tab PO SCH (19:22)
[2020-10-31] MEDS: LEVOTHYROXINE SODIUM 137 MCG PO SCH (19:22)
[2020-10-31] MEDS: BUPROPION 300 MG PO SCH (19:22)
[2020-11-01] MEDS: Citalopram 20 MG Tab PO SCH (07:06)
[2020-11-01] MEDS: Docusate Sodium 100 MG Cap PO SCH ×2 (07:06→17:05)
[2020-11-01] MEDS: Albuterol/Ipratropium 4 GM Inhalation Spray INH SCH ×4 (07:06→19:27)
[2020-11-01] MEDS: Ferrous Sulfate 325 MG Tab PO SCH (07:07)
[2020-11-01] MEDS: Fludrocortisone 0.1 MG Tab PO SCH ×2 (07:07→19:28)
[2020-11-01] MEDS: Potassium Chloride 20 MEQ Tab.ER PO SCH ×4 (07:07→19:29)
[2020-11-01] MEDS: Furosemide 20 MG Tab PO SCH ×2 (07:07→13:27)
[2020-11-01] MEDS: Acetaminophen 325 MG Tab PO SCH ×3 (07:08→17:05)
[2020-11-01] MEDS: Calcium Carbonate 750 MG Tab.Chew PO SCH (07:08)
[2020-11-01] MEDS: Niacin 500 MG Tab PO SCH ×2 (07:08→17:05)
[2020-11-01] MEDS: Cholecalciferol (Vitamin D3) 25 MCG Tab PO SCH (07:09)
[2020-11-01] MEDS: Cyanocobalamin (Vitamin B12) 1,000 MCG Tab PO SCH (07:09)
[2020-11-01] MEDS: Simvastatin 10 MG Tab PO SCH (19:29)
[2020-11-01] MEDS: BUPROPION 300 MG PO SCH (19:29)
[2020-11-01] MEDS: LEVOTHYROXINE SODIUM 137 MCG PO SCH (19:29)
[2020-11-01] MEDS: Menthol/Methyl Salicylate 85 GM Tube TOP PRN (19:30)
[2020-11-01] MEDS: Ibuprofen 600 MG Tab PO PRN (19:31)
[2020-11-02] MEDS: Potassium Chloride 20 MEQ Tab.ER PO SCH ×4 (08:22→19:29)
[2020-11-02] MEDS: Citalopram 20 MG Tab PO SCH (08:23)
[2020-11-02] MEDS: Furosemide 20 MG Tab PO SCH ×2 (08:23→15:26)
[2020-11-02] MEDS: Fludrocortisone 0.1 MG Tab PO SCH ×2 (08:23→19:29)
[2020-11-02] MEDS: Niacin 500 MG Tab PO SCH ×2 (08:24→17:43)
[2020-11-02] MEDS: Calcium Carbonate 750 MG Tab.Chew PO SCH (08:24)
[2020-11-02] MEDS: Docusate Sodium 100 MG Cap PO SCH ×2 (08:25→17:42)
[2020-11-02] MEDS: Albuterol/Ipratropium 4 GM Inhalation Spray INH SCH ×4 (08:27→19:28)
[2020-11-02] MEDS: Acetaminophen 325 MG Tab PO SCH ×3 (08:28→17:44)
[2020-11-02] MEDS: Ferrous Sulfate 325 MG Tab PO SCH (08:28)
[2020-11-02] MEDS: Cholecalciferol (Vitamin D3) 25 MCG Tab PO SCH (08:29)
[2020-11-02] MEDS: Cyanocobalamin (Vitamin B12) 1,000 MCG Tab PO SCH (08:30)
[2020-11-02] MEDS: LEVOTHYROXINE SODIUM 137 MCG PO SCH (19:29)
[2020-11-02] MEDS: Simvastatin 10 MG Tab PO SCH (19:30)
[2020-11-02] MEDS: Menthol/Methyl Salicylate 85 GM Tube TOP PRN (19:30)
[2020-11-02] MEDS: BUPROPION 300 MG PO SCH (19:30)
[2020-11-03] MEDS: Citalopram 20 MG Tab PO SCH (07:33)
[2020-11-03] MEDS: Fludrocortisone 0.1 MG Tab PO SCH ×2 (07:33→19:13)
[2020-11-03] MEDS: Potassium Chloride 20 MEQ Tab.ER PO SCH ×4 (07:33→19:14)
[2020-11-03] MEDS: Furosemide 20 MG Tab PO SCH ×2 (07:34→13:05)
[2020-11-03] MEDS: Niacin 500 MG Tab PO SCH ×2 (07:34→17:22)
[2020-11-03] MEDS: Ferrous Sulfate 325 MG Tab PO SCH (07:35)
[2020-11-03] MEDS: Cyanocobalamin (Vitamin B12) 1,000 MCG Tab PO SCH (07:35)
[2020-11-03] MEDS: Cholecalciferol (Vitamin D3) 25 MCG Tab PO SCH (07:35)
[2020-11-03] MEDS: Docusate Sodium 100 MG Cap PO SCH ×2 (07:35→17:22)
[2020-11-03] MEDS: Acetaminophen 325 MG Tab PO SCH ×3 (07:36→17:23)
[2020-11-03] MEDS: Calcium Carbonate 750 MG Tab.Chew PO SCH (07:36)
[2020-11-03] MEDS: Albuterol/Ipratropium 4 GM Inhalation Spray INH SCH ×4 (07:37→19:11)
[2020-11-03] MEDS: LEVOTHYROXINE SODIUM 137 MCG PO SCH (19:14)
[2020-11-03] MEDS: BUPROPION 300 MG PO SCH (19:15)
[2020-11-03] MEDS: Simvastatin 10 MG Tab PO SCH (19:15)
[2020-11-03] MEDS: Menthol/Methyl Salicylate 85 GM Tube TOP PRN (19:16)
[2020-11-04] MEDS: Citalopram 20 MG Tab PO SCH (08:14)
[2020-11-04] MEDS: Docusate Sodium 100 MG Cap PO SCH ×2 (08:15→17:22)
[2020-11-04] MEDS: Ferrous Sulfate 325 MG Tab PO SCH (08:17)
[2020-11-04] MEDS: Albuterol/Ipratropium 4 GM Inhalation Spray INH SCH ×4 (08:17→19:24)
[2020-11-04] MEDS: Potassium Chloride 20 MEQ Tab.ER PO SCH ×4 (08:18→19:24)
[2020-11-04] MEDS: Fludrocortisone 0.1 MG Tab PO SCH ×2 (08:18→19:24)
[2020-11-04] MEDS: Furosemide 20 MG Tab PO SCH ×2 (08:18→14:34)
[2020-11-04] MEDS: Niacin 500 MG Tab PO SCH ×2 (08:19→17:22)
[2020-11-04] MEDS: Calcium Carbonate 750 MG Tab.Chew PO SCH (08:19)
[2020-11-04] MEDS: Acetaminophen 325 MG Tab PO SCH ×3 (08:20→17:22)
[2020-11-04] MEDS: Cyanocobalamin (Vitamin B12) 1,000 MCG Tab PO SCH (08:21)
[2020-11-04] MEDS: Cholecalciferol (Vitamin D3) 25 MCG Tab PO SCH (08:21)
[2020-11-04] MEDS: Ibuprofen 600 MG Tab PO PRN (11:57)
[2020-11-04] MEDS: LEVOTHYROXINE SODIUM 137 MCG PO SCH (19:25)
[2020-11-04] MEDS: BUPROPION 300 MG PO SCH (19:25)
[2020-11-04] MEDS: Simvastatin 10 MG Tab PO SCH (19:25)
[2020-11-04] MEDS: Menthol/Methyl Salicylate 85 GM Tube TOP PRN (19:26)
[2020-11-05] MEDS: Acetaminophen 325 MG Tab PO PRN (02:49)
[2020-11-05] MEDS: Potassium Chloride 20 MEQ Tab.ER PO SCH ×4 (08:16→19:25)
[2020-11-05] MEDS: Furosemide 20 MG Tab PO SCH ×2 (08:16→14:30)
[2020-11-05] MEDS: Citalopram 20 MG Tab PO SCH (08:17)
[2020-11-05] MEDS: Fludrocortisone 0.1 MG Tab PO SCH ×2 (08:17→19:25)
[2020-11-05] MEDS: Docusate Sodium 100 MG Cap PO SCH ×2 (08:19→17:48)
[2020-11-05] MEDS: Ferrous Sulfate 325 MG Tab PO SCH (08:19)
[2020-11-05] MEDS: Albuterol/Ipratropium 4 GM Inhalation Spray INH SCH ×4 (08:20→19:23)
[2020-11-05] MEDS: Niacin 500 MG Tab PO SCH ×2 (08:23→17:48)
[2020-11-05] MEDS: Calcium Carbonate 750 MG Tab.Chew PO SCH (08:23)
[2020-11-05] MEDS: Acetaminophen 325 MG Tab PO SCH ×3 (08:24→17:49)
[2020-11-05] MEDS: Cholecalciferol (Vitamin D3) 25 MCG Tab PO SCH (08:25)
[2020-11-05] MEDS: Cyanocobalamin (Vitamin B12) 1,000 MCG Tab PO SCH (08:25)
[2020-11-05] MEDS: Ibuprofen 600 MG Tab PO PRN (08:29)
[2020-11-05] MEDS: LEVOTHYROXINE SODIUM 137 MCG PO SCH (19:25)
[2020-11-05] MEDS: Simvastatin 10 MG Tab PO SCH (19:26)
[2020-11-05] MEDS: BUPROPION 300 MG PO SCH (19:26)
[2020-11-05] MEDS: Menthol/Methyl Salicylate 85 GM Tube TOP PRN (19:27)
[2020-11-06] MEDS: Furosemide 20 MG Tab PO SCH ×2 (08:04→14:38)
[2020-11-06] MEDS: Potassium Chloride 20 MEQ Tab.ER PO SCH ×4 (08:04→19:25)
[2020-11-06] MEDS: Fludrocortisone 0.1 MG Tab PO SCH ×2 (08:05→19:25)
[2020-11-06] MEDS: Citalopram 20 MG Tab PO SCH (08:05)
[2020-11-06] MEDS: Docusate Sodium 100 MG Cap PO SCH ×2 (08:05→17:25)
[2020-11-06] MEDS: Albuterol/Ipratropium 4 GM Inhalation Spray INH SCH ×4 (08:06→19:25)
[2020-11-06] MEDS: Ferrous Sulfate 325 MG Tab PO SCH (08:06)
[2020-11-06] MEDS: Niacin 500 MG Tab PO SCH ×2 (08:06→17:25)
[2020-11-06] MEDS: Acetaminophen 325 MG Tab PO SCH ×3 (08:07→17:25)
[2020-11-06] MEDS: Calcium Carbonate 750 MG Tab.Chew PO SCH (08:07)
[2020-11-06] MEDS: Cholecalciferol (Vitamin D3) 25 MCG Tab PO SCH (08:08)
[2020-11-06] MEDS: Cyanocobalamin (Vitamin B12) 1,000 MCG Tab PO SCH (08:08)
[2020-11-06] MEDS: LEVOTHYROXINE SODIUM 137 MCG PO SCH (19:26)
[2020-11-06] MEDS: Simvastatin 10 MG Tab PO SCH (19:26)
[2020-11-06] MEDS: BUPROPION 300 MG PO SCH (19:26)
[2020-11-06] MEDS: Menthol/Methyl Salicylate 85 GM Tube TOP PRN (19:27)
[2020-11-07] MEDS: Albuterol/Ipratropium 4 GM Inhalation Spray INH SCH ×4 (07:03→19:28)
[2020-11-07] MEDS: Ferrous Sulfate 325 MG Tab PO SCH (07:04)
[2020-11-07] MEDS: Docusate Sodium 100 MG Cap PO SCH ×2 (07:04→17:05)
[2020-11-07] MEDS: Citalopram 20 MG Tab PO SCH (07:04)
[2020-11-07] MEDS: Fludrocortisone 0.1 MG Tab PO SCH ×2 (07:05→19:28)
[2020-11-07] MEDS: Potassium Chloride 20 MEQ Tab.ER PO SCH ×4 (07:05→19:29)
[2020-11-07] MEDS: Niacin 500 MG Tab PO SCH ×2 (07:05→17:05)
[2020-11-07] MEDS: Furosemide 20 MG Tab PO SCH ×2 (07:05→13:08)
[2020-11-07] MEDS: Calcium Carbonate 750 MG Tab.Chew PO SCH (07:05)
[2020-11-07] MEDS: Acetaminophen 325 MG Tab PO SCH ×3 (07:06→17:06)
[2020-11-07] MEDS: Cyanocobalamin (Vitamin B12) 1,000 MCG Tab PO SCH (07:06)
[2020-11-07] MEDS: Cholecalciferol (Vitamin D3) 25 MCG Tab PO SCH (07:06)
[2020-11-07] MEDS: Ibuprofen 600 MG Tab PO PRN (13:08)
[2020-11-07] MEDS: BUPROPION 300 MG PO SCH (19:29)
[2020-11-07] MEDS: LEVOTHYROXINE SODIUM 137 MCG PO SCH (19:29)
[2020-11-07] MEDS: Simvastatin 10 MG Tab PO SCH (19:29)
[2020-11-07] MEDS: Menthol/Methyl Salicylate 85 GM Tube TOP PRN (19:30)
[2020-11-08] MEDS: Ibuprofen 600 MG Tab PO PRN ×2 (00:13→15:13)
[2020-11-08] MEDS: Fludrocortisone 0.1 MG Tab PO SCH ×2 (07:58→19:47)
[2020-11-08] MEDS: Potassium Chloride 20 MEQ Tab.ER PO SCH ×4 (07:58→19:47)
[2020-11-08] MEDS: Furosemide 20 MG Tab PO SCH ×2 (07:58→15:13)
[2020-11-08] MEDS: Docusate Sodium 100 MG Cap PO SCH ×2 (07:59→16:59)
[2020-11-08] MEDS: Citalopram 20 MG Tab PO SCH (07:59)
[2020-11-08] MEDS: Ferrous Sulfate 325 MG Tab PO SCH (08:00)
[2020-11-08] MEDS: Niacin 500 MG Tab PO SCH ×2 (08:00→16:59)
[2020-11-08] MEDS: Acetaminophen 325 MG Tab PO SCH ×3 (08:01→17:00)
[2020-11-08] MEDS: Calcium Carbonate 750 MG Tab.Chew PO SCH (08:02)
[2020-11-08] MEDS: Cyanocobalamin (Vitamin B12) 1,000 MCG Tab PO SCH (08:03)
[2020-11-08] MEDS: Cholecalciferol (Vitamin D3) 25 MCG Tab PO SCH (08:03)
[2020-11-08] MEDS: Albuterol/Ipratropium 4 GM Inhalation Spray INH SCH ×4 (08:04→19:46)
[2020-11-08] MEDS: Menthol/Methyl Salicylate 85 GM Tube TOP PRN (19:48)
[2020-11-08] MEDS: Simvastatin 10 MG Tab PO SCH (19:48)
[2020-11-08] MEDS: BUPROPION 300 MG PO SCH (19:48)
[2020-11-08] MEDS: LEVOTHYROXINE SODIUM 137 MCG PO SCH (19:48)
[2020-11-09] MEDS: Citalopram 20 MG Tab PO SCH (07:53)
[2020-11-09] MEDS: Fludrocortisone 0.1 MG Tab PO SCH ×2 (07:53→19:29)
[2020-11-09] MEDS: Albuterol/Ipratropium 4 GM Inhalation Spray INH SCH ×4 (07:54→19:27)
[2020-11-09] MEDS: Furosemide 20 MG Tab PO SCH ×2 (07:54→15:00)
[2020-11-09] MEDS: Docusate Sodium 100 MG Cap PO SCH ×2 (07:54→17:34)
[2020-11-09] MEDS: Potassium Chloride 20 MEQ Tab.ER PO SCH ×4 (07:54→19:30)
[2020-11-09] MEDS: Ferrous Sulfate 325 MG Tab PO SCH (07:55)
[2020-11-09] MEDS: Niacin 500 MG Tab PO SCH ×2 (07:55→17:34)
[2020-11-09] MEDS: Cholecalciferol (Vitamin D3) 25 MCG Tab PO SCH (07:56)
[2020-11-09] MEDS: Cyanocobalamin (Vitamin B12) 1,000 MCG Tab PO SCH (07:56)
[2020-11-09] MEDS: Acetaminophen 325 MG Tab PO SCH ×3 (07:56→17:35)
[2020-11-09] MEDS: Calcium Carbonate 750 MG Tab.Chew PO SCH (07:57)
[2020-11-09] MEDS: LEVOTHYROXINE SODIUM 137 MCG PO SCH (19:30)
[2020-11-09] MEDS: BUPROPION 300 MG PO SCH (19:30)
[2020-11-09] MEDS: Simvastatin 10 MG Tab PO SCH (19:31)
[2020-11-09] MEDS: Bacitracin/Neomycin/Polymyxin B Oint 0.9 GM U/D Packet TOP SCH (19:31)
[2020-11-09] MEDS: Menthol/Methyl Salicylate 85 GM Tube TOP PRN (19:32)
[2020-11-10] MEDS: Citalopram 20 MG Tab PO SCH (07:34)
[2020-11-10] MEDS: Bisacodyl 5 MG Tab PO PRN (07:35)
[2020-11-10] MEDS: Docusate Sodium 100 MG Cap PO SCH ×2 (07:35→17:08)
[2020-11-10] MEDS: Albuterol/Ipratropium 4 GM Inhalation Spray INH SCH ×4 (07:35→19:07)
[2020-11-10] MEDS: Ferrous Sulfate 325 MG Tab PO SCH (07:36)
[2020-11-10] MEDS: Fludrocortisone 0.1 MG Tab PO SCH ×2 (07:36→19:05)
[2020-11-10] MEDS: Furosemide 20 MG Tab PO SCH ×2 (07:38→14:24)
[2020-11-10] MEDS: Potassium Chloride 20 MEQ Tab.ER PO SCH ×4 (07:38→19:06)
[2020-11-10] MEDS: Niacin 500 MG Tab PO SCH ×2 (07:39→17:08)
[2020-11-10] MEDS: Bacitracin/Neomycin/Polymyxin B Oint 0.9 GM U/D Packet TOP SCH ×2 (07:40→19:07)
[2020-11-10] MEDS: Calcium Carbonate 750 MG Tab.Chew PO SCH (07:40)
[2020-11-10] MEDS: Acetaminophen 325 MG Tab PO SCH ×3 (07:41→17:09)
[2020-11-10] MEDS: Cholecalciferol (Vitamin D3) 25 MCG Tab PO SCH (07:42)
[2020-11-10] MEDS: Cyanocobalamin (Vitamin B12) 1,000 MCG Tab PO SCH (07:42)
[2020-11-10] MEDS ORDERED: Cephalexin 250 MG Cap PO SCH ×2 (08:00)
[2020-11-10] MEDS: CEPHALEXIN 500MG CAPS PO SCH ×2 (11:06→17:08)
[2020-11-10] MEDS: Ibuprofen 600 MG Tab PO PRN (15:24)
[2020-11-10] MEDS: Simvastatin 10 MG Tab PO SCH (19:06)
[2020-11-10] MEDS: LEVOTHYROXINE SODIUM 137 MCG PO SCH (19:06)
[2020-11-10] MEDS: BUPROPION 300 MG PO SCH (19:06)
[2020-11-11] MEDS: Albuterol/Ipratropium 4 GM Inhalation Spray INH SCH ×4 (07:12→19:03)
[2020-11-11] MEDS: Citalopram 20 MG Tab PO SCH (07:12)
[2020-11-11] MEDS: Docusate Sodium 100 MG Cap PO SCH ×2 (07:12→17:07)
[2020-11-11] MEDS: Potassium Chloride 20 MEQ Tab.ER PO SCH ×4 (07:13→19:04)
[2020-11-11] MEDS: Fludrocortisone 0.1 MG Tab PO SCH ×2 (07:13→19:04)
[2020-11-11] MEDS: Ferrous Sulfate 325 MG Tab PO SCH (07:13)
[2020-11-11] MEDS: Furosemide 20 MG Tab PO SCH ×2 (07:14→13:07)
[2020-11-11] MEDS: CEPHALEXIN 500MG CAPS PO SCH ×2 (07:14→17:07)
[2020-11-11] MEDS: Niacin 500 MG Tab PO SCH ×2 (07:14→17:07)
[2020-11-11] MEDS: Calcium Carbonate 750 MG Tab.Chew PO SCH (07:15)
[2020-11-11] MEDS: Bacitracin/Neomycin/Polymyxin B Oint 0.9 GM U/D Packet TOP SCH ×2 (07:15→19:26)
[2020-11-11] MEDS: Acetaminophen 325 MG Tab PO SCH ×3 (07:16→17:08)
[2020-11-11] MEDS: Cyanocobalamin (Vitamin B12) 1,000 MCG Tab PO SCH (07:16)
[2020-11-11] MEDS: Cholecalciferol (Vitamin D3) 25 MCG Tab PO SCH (07:17)
[2020-11-11] MEDS: Ibuprofen 600 MG Tab PO PRN (15:08)
[2020-11-11] MEDS: LEVOTHYROXINE SODIUM 137 MCG PO SCH (19:04)
[2020-11-11] MEDS: BUPROPION 300 MG PO SCH (19:05)
[2020-11-11] MEDS: Simvastatin 10 MG Tab PO SCH (19:05)
[2020-11-11] MEDS: Menthol/Methyl Salicylate 85 GM Tube TOP PRN (19:14)
[2020-11-12] MEDS: Citalopram 20 MG Tab PO SCH (07:34)
[2020-11-12] MEDS: Docusate Sodium 100 MG Cap PO SCH ×2 (07:34→17:05)
[2020-11-12] MEDS: Albuterol/Ipratropium 4 GM Inhalation Spray INH SCH ×4 (07:34→19:15)
[2020-11-12] MEDS: Ferrous Sulfate 325 MG Tab PO SCH (07:35)
[2020-11-12] MEDS: Potassium Chloride 20 MEQ Tab.ER PO SCH ×4 (07:35→19:23)
[2020-11-12] MEDS: Fludrocortisone 0.1 MG Tab PO SCH ×2 (07:35→19:23)
[2020-11-12] MEDS: CEPHALEXIN 500MG CAPS PO SCH ×2 (07:36→17:05)
[2020-11-12] MEDS: Niacin 500 MG Tab PO SCH ×2 (07:36→17:05)
[2020-11-12] MEDS: Furosemide 20 MG Tab PO SCH ×2 (07:36→13:05)
[2020-11-12] MEDS: Bacitracin/Neomycin/Polymyxin B Oint 0.9 GM U/D Packet TOP SCH ×2 (07:36→19:23)
[2020-11-12] MEDS: Cyanocobalamin (Vitamin B12) 1,000 MCG Tab PO SCH (07:37)
[2020-11-12] MEDS: Calcium Carbonate 750 MG Tab.Chew PO SCH (07:37)
[2020-11-12] MEDS: Acetaminophen 325 MG Tab PO SCH ×3 (07:37→17:06)
[2020-11-12] MEDS: Cholecalciferol (Vitamin D3) 25 MCG Tab PO SCH (07:38)
[2020-11-12] MEDS: Simvastatin 10 MG Tab PO SCH (19:23)
[2020-11-12] MEDS: BUPROPION 300 MG PO SCH (19:23)
[2020-11-12] MEDS: LEVOTHYROXINE SODIUM 137 MCG PO SCH (19:23)
[2020-11-12] MEDS: Menthol/Methyl Salicylate 85 GM Tube TOP PRN (19:24)
[2020-11-13] MEDS: Albuterol/Ipratropium 4 GM Inhalation Spray INH SCH ×4 (07:51→20:30)
[2020-11-13] MEDS: Docusate Sodium 100 MG Cap PO SCH ×2 (07:51→17:21)
[2020-11-13] MEDS: Citalopram 20 MG Tab PO SCH (07:51)
[2020-11-13] MEDS: Fludrocortisone 0.1 MG Tab PO SCH ×2 (07:52→19:30)
[2020-11-13] MEDS: Ferrous Sulfate 325 MG Tab PO SCH (07:52)
[2020-11-13] MEDS: Furosemide 20 MG Tab PO SCH ×2 (07:53→15:46)
[2020-11-13] MEDS: Potassium Chloride 20 MEQ Tab.ER PO SCH ×4 (07:53→19:30)
[2020-11-13] MEDS: CEPHALEXIN 500MG CAPS PO SCH ×2 (07:54→17:21)
[2020-11-13] MEDS: Niacin 500 MG Tab PO SCH ×2 (07:54→17:22)
[2020-11-13] MEDS: Bacitracin/Neomycin/Polymyxin B Oint 0.9 GM U/D Packet TOP SCH ×2 (07:55→19:31)
[2020-11-13] MEDS: Calcium Carbonate 750 MG Tab.Chew PO SCH (07:56)
[2020-11-13] MEDS: Acetaminophen 325 MG Tab PO SCH ×3 (07:57→17:23)
[2020-11-13] MEDS: Cyanocobalamin (Vitamin B12) 1,000 MCG Tab PO SCH (07:58)
[2020-11-13] MEDS: Cholecalciferol (Vitamin D3) 25 MCG Tab PO SCH (07:58)
[2020-11-13] MEDS: BUPROPION 300 MG PO SCH (19:30)
[2020-11-13] MEDS: LEVOTHYROXINE SODIUM 137 MCG PO SCH (19:30)
[2020-11-13] MEDS: Menthol/Methyl Salicylate 85 GM Tube TOP PRN (19:31)
[2020-11-13] MEDS: Simvastatin 10 MG Tab PO SCH (19:31)
[2020-11-14] MEDS: Ibuprofen 600 MG Tab PO PRN (03:43)
[2020-11-14] MEDS: Fludrocortisone 0.1 MG Tab PO SCH ×2 (08:31→19:17)
[2020-11-14] MEDS: Potassium Chloride 20 MEQ Tab.ER PO SCH ×4 (08:31→19:18)
[2020-11-14] MEDS: Citalopram 20 MG Tab PO SCH (08:31)
[2020-11-14] MEDS: CEPHALEXIN 500MG CAPS PO SCH ×2 (08:32→17:17)
[2020-11-14] MEDS: Furosemide 20 MG Tab PO SCH ×2 (08:32→13:25)
[2020-11-14] MEDS: Docusate Sodium 100 MG Cap PO SCH ×2 (08:33→17:18)
[2020-11-14] MEDS: Cholecalciferol (Vitamin D3) 25 MCG Tab PO SCH (08:34)
[2020-11-14] MEDS: Acetaminophen 325 MG Tab PO SCH ×3 (08:35→17:19)
[2020-11-14] MEDS: Cyanocobalamin (Vitamin B12) 1,000 MCG Tab PO SCH (08:35)
[2020-11-14] MEDS: Calcium Carbonate 750 MG Tab.Chew PO SCH (08:36)
[2020-11-14] MEDS: Niacin 500 MG Tab PO SCH ×2 (08:37→17:18)
[2020-11-14] MEDS: Bacitracin/Neomycin/Polymyxin B Oint 0.9 GM U/D Packet TOP SCH ×2 (08:37→19:20)
[2020-11-14] MEDS: Ferrous Sulfate 325 MG Tab PO SCH (08:38)
[2020-11-14] MEDS: Albuterol/Ipratropium 4 GM Inhalation Spray INH SCH ×4 (08:39→19:17)
[2020-11-14] MEDS: Simvastatin 10 MG Tab PO SCH (19:18)
[2020-11-14] MEDS: BUPROPION 300 MG PO SCH (19:18)
[2020-11-14] MEDS: LEVOTHYROXINE SODIUM 137 MCG PO SCH (19:18)
[2020-11-14] MEDS: Menthol/Methyl Salicylate 85 GM Tube TOP PRN (19:20)
[2020-11-15] MEDS: Citalopram 20 MG Tab PO SCH (07:18)
[2020-11-15] MEDS: Albuterol/Ipratropium 4 GM Inhalation Spray INH SCH ×4 (07:18→19:05)
[2020-11-15] MEDS: Fludrocortisone 0.1 MG Tab PO SCH ×2 (07:18→19:06)
[2020-11-15] MEDS: Ferrous Sulfate 325 MG Tab PO SCH (07:18)
[2020-11-15] MEDS: Docusate Sodium 100 MG Cap PO SCH ×2 (07:18→17:06)
[2020-11-15] MEDS: Furosemide 20 MG Tab PO SCH ×2 (07:19→13:26)
[2020-11-15] MEDS: Potassium Chloride 20 MEQ Tab.ER PO SCH ×4 (07:19→19:06)
[2020-11-15] MEDS: CEPHALEXIN 500MG CAPS PO SCH ×2 (07:19→17:07)
[2020-11-15] MEDS: Niacin 500 MG Tab PO SCH ×2 (07:19→17:07)
[2020-11-15] MEDS: Acetaminophen 325 MG Tab PO SCH ×3 (07:20→17:07)
[2020-11-15] MEDS: Bacitracin/Neomycin/Polymyxin B Oint 0.9 GM U/D Packet TOP SCH ×2 (07:20→20:04)
[2020-11-15] MEDS: Calcium Carbonate 750 MG Tab.Chew PO SCH (07:20)
[2020-11-15] MEDS: Cholecalciferol (Vitamin D3) 25 MCG Tab PO SCH (07:21)
[2020-11-15] MEDS: Cyanocobalamin (Vitamin B12) 1,000 MCG Tab PO SCH (07:21)
[2020-11-15] MEDS: Ibuprofen 600 MG Tab PO PRN (15:35)
[2020-11-15] MEDS: Simvastatin 10 MG Tab PO SCH (19:06)
[2020-11-15] MEDS: LEVOTHYROXINE SODIUM 137 MCG PO SCH (19:06)
[2020-11-15] MEDS: BUPROPION 300 MG PO SCH (19:06)
[2020-11-16] MEDS: Citalopram 20 MG Tab PO SCH (07:43)
[2020-11-16] MEDS: Albuterol/Ipratropium 4 GM Inhalation Spray INH SCH ×4 (07:44→19:13)
[2020-11-16] MEDS: Docusate Sodium 100 MG Cap PO SCH ×2 (07:44→17:09)
[2020-11-16] MEDS: Ferrous Sulfate 325 MG Tab PO SCH (07:45)
[2020-11-16] MEDS: Fludrocortisone 0.1 MG Tab PO SCH ×2 (07:46→19:14)
[2020-11-16] MEDS: Potassium Chloride 20 MEQ Tab.ER PO SCH ×4 (07:46→19:14)
[2020-11-16] MEDS: Furosemide 20 MG Tab PO SCH ×2 (07:47→14:22)
[2020-11-16] MEDS: CEPHALEXIN 500MG CAPS PO SCH ×2 (07:47→17:10)
[2020-11-16] MEDS: Niacin 500 MG Tab PO SCH ×2 (07:47→17:10)
[2020-11-16] MEDS: Bacitracin/Neomycin/Polymyxin B Oint 0.9 GM U/D Packet TOP SCH ×2 (07:48→19:15)
[2020-11-16] MEDS: Acetaminophen 325 MG Tab PO SCH ×3 (07:49→17:11)
[2020-11-16] MEDS: Calcium Carbonate 750 MG Tab.Chew PO SCH (07:49)
[2020-11-16] MEDS: Cyanocobalamin (Vitamin B12) 1,000 MCG Tab PO SCH (07:50)
[2020-11-16] MEDS: Cholecalciferol (Vitamin D3) 25 MCG Tab PO SCH (07:51)
[2020-11-16] MEDS: BUPROPION 300 MG PO SCH (19:14)
[2020-11-16] MEDS: LEVOTHYROXINE SODIUM 137 MCG PO SCH (19:14)
[2020-11-16] MEDS: Simvastatin 10 MG Tab PO SCH (19:15)
[2020-11-16] MEDS: Menthol/Methyl Salicylate 85 GM Tube TOP PRN (19:16)
[2020-11-16] MEDS: Ibuprofen 600 MG Tab PO PRN (23:18)
[2020-11-17] MEDS: Docusate Sodium 100 MG Cap PO SCH ×2 (07:16→17:03)
[2020-11-17] MEDS: Citalopram 20 MG Tab PO SCH (07:16)
[2020-11-17] MEDS: Albuterol/Ipratropium 4 GM Inhalation Spray INH SCH ×4 (07:17→19:10)
[2020-11-17] MEDS: Potassium Chloride 20 MEQ Tab.ER PO SCH ×4 (07:19→19:12)
[2020-11-17] MEDS: Furosemide 20 MG Tab PO SCH ×2 (07:19→13:01)
[2020-11-17] MEDS: Ferrous Sulfate 325 MG Tab PO SCH (07:19)
[2020-11-17] MEDS: Fludrocortisone 0.1 MG Tab PO SCH ×2 (07:19→19:11)
[2020-11-17] MEDS: Calcium Carbonate 750 MG Tab.Chew PO SCH (07:20)
[2020-11-17] MEDS: Niacin 500 MG Tab PO SCH ×2 (07:20→17:03)
[2020-11-17] MEDS: CEPHALEXIN 500MG CAPS PO SCH ×2 (07:20→17:02)
[2020-11-17] MEDS: Bacitracin/Neomycin/Polymyxin B Oint 0.9 GM U/D Packet TOP SCH ×2 (07:20→19:13)
[2020-11-17] MEDS: Cyanocobalamin (Vitamin B12) 1,000 MCG Tab PO SCH (07:21)
[2020-11-17] MEDS: Acetaminophen 325 MG Tab PO SCH ×3 (07:21→17:03)
[2020-11-17] MEDS: Cholecalciferol (Vitamin D3) 25 MCG Tab PO SCH (07:22)
[2020-11-17] MEDS: Ibuprofen 600 MG Tab PO PRN (15:05)
[2020-11-17] MEDS: LEVOTHYROXINE SODIUM 137 MCG PO SCH (19:12)
[2020-11-17] MEDS: BUPROPION 300 MG PO SCH (19:12)
[2020-11-17] MEDS: Simvastatin 10 MG Tab PO SCH (19:12)
[2020-11-17] MEDS: Menthol/Methyl Salicylate 85 GM Tube TOP PRN (19:13)
[2020-11-17] MEDS: Acetaminophen 325 MG Tab PO PRN (19:14)
[2020-11-18] MEDS: Citalopram 20 MG Tab PO SCH (07:10)
[2020-11-18] MEDS: Albuterol/Ipratropium 4 GM Inhalation Spray INH SCH ×4 (07:11→19:52)
[2020-11-18] MEDS: Docusate Sodium 100 MG Cap PO SCH ×2 (07:11→17:54)
[2020-11-18] MEDS: Potassium Chloride 20 MEQ Tab.ER PO SCH ×4 (07:12→19:53)
[2020-11-18] MEDS: Ferrous Sulfate 325 MG Tab PO SCH (07:12)
[2020-11-18] MEDS: Furosemide 20 MG Tab PO SCH ×2 (07:12→14:14)
[2020-11-18] MEDS: Fludrocortisone 0.1 MG Tab PO SCH ×2 (07:12→19:53)
[2020-11-18] MEDS: Bacitracin/Neomycin/Polymyxin B Oint 0.9 GM U/D Packet TOP SCH ×2 (07:13→20:10)
[2020-11-18] MEDS: CEPHALEXIN 500MG CAPS PO SCH ×2 (07:13→17:55)
[2020-11-18] MEDS: Niacin 500 MG Tab PO SCH ×2 (07:13→17:55)
[2020-11-18] MEDS: Calcium Carbonate 750 MG Tab.Chew PO SCH (07:14)
[2020-11-18] MEDS: Acetaminophen 325 MG Tab PO SCH ×3 (07:15→17:55)
[2020-11-18] MEDS: Cyanocobalamin (Vitamin B12) 1,000 MCG Tab PO SCH (07:16)
[2020-11-18] MEDS: Cholecalciferol (Vitamin D3) 25 MCG Tab PO SCH (07:16)
[2020-11-18] MEDS: LEVOTHYROXINE SODIUM 137 MCG PO SCH (19:53)
[2020-11-18] MEDS: Menthol/Methyl Salicylate 85 GM Tube TOP PRN (19:54)
[2020-11-18] MEDS: BUPROPION 300 MG PO SCH (19:54)
[2020-11-18] MEDS: Simvastatin 10 MG Tab PO SCH (19:54)
[2020-11-18] MEDS: Bisacodyl 5 MG Tab PO PRN (20:09)
[2020-11-19] MEDS: Docusate Sodium 100 MG Cap PO SCH ×2 (07:56→17:38)
[2020-11-19] MEDS: Citalopram 20 MG Tab PO SCH (07:56)
[2020-11-19] MEDS: Albuterol/Ipratropium 4 GM Inhalation Spray INH SCH ×4 (07:57→19:26)
[2020-11-19] MEDS: Ferrous Sulfate 325 MG Tab PO SCH (07:57)
[2020-11-19] MEDS: Fludrocortisone 0.1 MG Tab PO SCH ×2 (07:58→19:27)
[2020-11-19] MEDS: Furosemide 20 MG Tab PO SCH ×2 (07:58→14:07)
[2020-11-19] MEDS: Potassium Chloride 20 MEQ Tab.ER PO SCH ×4 (07:58→19:27)
[2020-11-19] MEDS: Bacitracin/Neomycin/Polymyxin B Oint 0.9 GM U/D Packet TOP SCH ×2 (07:59→19:28)
[2020-11-19] MEDS: Niacin 500 MG Tab PO SCH ×2 (07:59→17:39)
[2020-11-19] MEDS: CEPHALEXIN 500MG CAPS PO SCH ×2 (07:59→17:39)
[2020-11-19] MEDS: Calcium Carbonate 750 MG Tab.Chew PO SCH (08:00)
[2020-11-19] MEDS: Acetaminophen 325 MG Tab PO SCH ×3 (08:00→17:39)
[2020-11-19] MEDS: Cyanocobalamin (Vitamin B12) 1,000 MCG Tab PO SCH (08:01)
[2020-11-19] MEDS: Cholecalciferol (Vitamin D3) 25 MCG Tab PO SCH (08:01)
[2020-11-19] MEDS: BUPROPION 300 MG PO SCH (19:28)
[2020-11-19] MEDS: Simvastatin 10 MG Tab PO SCH (19:28)
[2020-11-19] MEDS: LEVOTHYROXINE SODIUM 137 MCG PO SCH (19:28)
[2020-11-19] MEDS: Menthol/Methyl Salicylate 85 GM Tube TOP PRN (19:30)
[2020-11-20] MEDS: Ibuprofen 600 MG Tab PO PRN (07:14)
[2020-11-20] MEDS: Acetaminophen 325 MG Tab PO SCH ×3 (07:15→17:19)
[2020-11-20] MEDS: Citalopram 20 MG Tab PO SCH (07:15)
[2020-11-20] MEDS: Docusate Sodium 100 MG Cap PO SCH ×2 (07:16→17:19)
[2020-11-20] MEDS: Ferrous Sulfate 325 MG Tab PO SCH (07:16)
[2020-11-20] MEDS: Albuterol/Ipratropium 4 GM Inhalation Spray INH SCH ×4 (07:16→19:26)
[2020-11-20] MEDS: Furosemide 20 MG Tab PO SCH ×2 (07:17→13:21)
[2020-11-20] MEDS: Niacin 500 MG Tab PO SCH ×2 (07:17→17:19)
[2020-11-20] MEDS: Fludrocortisone 0.1 MG Tab PO SCH ×2 (07:17→19:27)
[2020-11-20] MEDS: Potassium Chloride 20 MEQ Tab.ER PO SCH ×4 (07:17→19:27)
[2020-11-20] MEDS: Bacitracin/Neomycin/Polymyxin B Oint 0.9 GM U/D Packet TOP SCH ×2 (07:18→19:29)
[2020-11-20] MEDS: Calcium Carbonate 750 MG Tab.Chew PO SCH (07:18)
[2020-11-20] MEDS: Cyanocobalamin (Vitamin B12) 1,000 MCG Tab PO SCH (07:19)
[2020-11-20] MEDS: Cholecalciferol (Vitamin D3) 25 MCG Tab PO SCH (07:19)
[2020-11-20] MEDS ORDERED: COVID-19 VACC, MRNA(MODERNA)/PF 100 MCG/0.5 ML VIAL IM ONE (11:00)
[2020-11-20] MEDS: LEVOTHYROXINE SODIUM 137 MCG PO SCH (19:28)
[2020-11-20] MEDS: BUPROPION 300 MG PO SCH (19:28)
[2020-11-20] MEDS: Simvastatin 10 MG Tab PO SCH (19:29)
[2020-11-20] MEDS: Menthol/Methyl Salicylate 85 GM Tube TOP PRN (19:30)
[2020-11-21] MEDS: Ibuprofen 600 MG Tab PO PRN ×2 (03:27→15:01)
[2020-11-21] MEDS: Citalopram 20 MG Tab PO SCH (07:19)
[2020-11-21] MEDS: Docusate Sodium 100 MG Cap PO SCH ×2 (07:19→17:06)
[2020-11-21] MEDS: Ferrous Sulfate 325 MG Tab PO SCH (07:19)
[2020-11-21] MEDS: Albuterol/Ipratropium 4 GM Inhalation Spray INH SCH ×4 (07:19→19:32)
[2020-11-21] MEDS: Fludrocortisone 0.1 MG Tab PO SCH ×2 (07:20→19:33)
[2020-11-21] MEDS: Niacin 500 MG Tab PO SCH ×2 (07:20→17:06)
[2020-11-21] MEDS: Potassium Chloride 20 MEQ Tab.ER PO SCH ×4 (07:20→19:33)
[2020-11-21] MEDS: Furosemide 20 MG Tab PO SCH ×2 (07:20→13:19)
[2020-11-21] MEDS: Calcium Carbonate 750 MG Tab.Chew PO SCH (07:21)
[2020-11-21] MEDS: Bacitracin/Neomycin/Polymyxin B Oint 0.9 GM U/D Packet TOP SCH ×2 (07:21→19:35)
[2020-11-21] MEDS: Acetaminophen 325 MG Tab PO SCH ×3 (07:22→17:07)
[2020-11-21] MEDS: Cholecalciferol (Vitamin D3) 25 MCG Tab PO SCH (07:22)
[2020-11-21] MEDS: Cyanocobalamin (Vitamin B12) 1,000 MCG Tab PO SCH (07:22)
[2020-11-21] MEDS: Simvastatin 10 MG Tab PO SCH (19:34)
[2020-11-21] MEDS: BUPROPION 300 MG PO SCH (19:34)
[2020-11-21] MEDS: Menthol/Methyl Salicylate 85 GM Tube TOP PRN (19:34)
[2020-11-21] MEDS: LEVOTHYROXINE SODIUM 137 MCG PO SCH (19:34)
[2020-11-22] MEDS: Ibuprofen 600 MG Tab PO PRN ×2 (01:36→15:20)
[2020-11-22] MEDS: Citalopram 20 MG Tab PO SCH (07:23)
[2020-11-22] MEDS: Albuterol/Ipratropium 4 GM Inhalation Spray INH SCH ×4 (07:23→19:24)
[2020-11-22] MEDS: Docusate Sodium 100 MG Cap PO SCH ×2 (07:23→17:05)
[2020-11-22] MEDS: Ferrous Sulfate 325 MG Tab PO SCH (07:23)
[2020-11-22] MEDS: Furosemide 20 MG Tab PO SCH ×2 (07:24→13:02)
[2020-11-22] MEDS: Potassium Chloride 20 MEQ Tab.ER PO SCH ×4 (07:24→19:24)
[2020-11-22] MEDS: Niacin 500 MG Tab PO SCH ×2 (07:24→17:06)
[2020-11-22] MEDS: Fludrocortisone 0.1 MG Tab PO SCH ×2 (07:24→19:24)
[2020-11-22] MEDS: Calcium Carbonate 750 MG Tab.Chew PO SCH (07:25)
[2020-11-22] MEDS: Acetaminophen 325 MG Tab PO SCH ×3 (07:27→17:06)
[2020-11-22] MEDS: Cyanocobalamin (Vitamin B12) 1,000 MCG Tab PO SCH (07:28)
[2020-11-22] MEDS: Cholecalciferol (Vitamin D3) 25 MCG Tab PO SCH (07:28)
[2020-11-22] MEDS: BUPROPION 300 MG PO SCH (19:25)
[2020-11-22] MEDS: Simvastatin 10 MG Tab PO SCH (19:25)
[2020-11-22] MEDS: LEVOTHYROXINE SODIUM 137 MCG PO SCH (19:25)
[2020-11-22] MEDS: Menthol/Methyl Salicylate 85 GM Tube TOP PRN (19:26)
[2020-11-23] MEDS: Ibuprofen 600 MG Tab PO PRN ×2 (03:23→08:03)
[2020-11-23] MEDS: Potassium Chloride 20 MEQ Tab.ER PO SCH ×4 (07:59→19:08)
[2020-11-23] MEDS: Citalopram 20 MG Tab PO SCH (07:59)
[2020-11-23] MEDS: Fludrocortisone 0.1 MG Tab PO SCH ×2 (07:59→19:08)
[2020-11-23] MEDS: Docusate Sodium 100 MG Cap PO SCH ×2 (08:00→17:26)
[2020-11-23] MEDS: Furosemide 20 MG Tab PO SCH ×2 (08:00→13:04)
[2020-11-23] MEDS: Albuterol/Ipratropium 4 GM Inhalation Spray INH SCH ×4 (08:00→19:07)
[2020-11-23] MEDS: Niacin 500 MG Tab PO SCH ×2 (08:01→17:26)
[2020-11-23] MEDS: Ferrous Sulfate 325 MG Tab PO SCH (08:01)
[2020-11-23] MEDS: Calcium Carbonate 750 MG Tab.Chew PO SCH (08:01)
[2020-11-23] MEDS: Acetaminophen 325 MG Tab PO SCH ×3 (08:02→17:26)
[2020-11-23] MEDS: Cyanocobalamin (Vitamin B12) 1,000 MCG Tab PO SCH (08:03)
[2020-11-23] MEDS: Cholecalciferol (Vitamin D3) 25 MCG Tab PO SCH (08:03)
[2020-11-23] MEDS: LEVOTHYROXINE SODIUM 137 MCG PO SCH (19:08)
[2020-11-23] MEDS: BUPROPION 300 MG PO SCH (19:08)
[2020-11-23] MEDS: Simvastatin 10 MG Tab PO SCH (19:09)
[2020-11-24] MEDS: Potassium Chloride 20 MEQ Tab.ER PO SCH ×4 (07:42→19:17)
[2020-11-24] MEDS: Fludrocortisone 0.1 MG Tab PO SCH ×2 (07:42→19:17)
[2020-11-24] MEDS: Citalopram 20 MG Tab PO SCH (07:42)
[2020-11-24] MEDS: Furosemide 20 MG Tab PO SCH ×2 (07:43→15:12)
[2020-11-24] MEDS: Albuterol/Ipratropium 4 GM Inhalation Spray INH SCH ×4 (07:43→19:18)
[2020-11-24] MEDS: Docusate Sodium 100 MG Cap PO SCH ×2 (07:44→17:29)
[2020-11-24] MEDS: Calcium Carbonate 750 MG Tab.Chew PO SCH (07:44)
[2020-11-24] MEDS: Ferrous Sulfate 325 MG Tab PO SCH (07:44)
[2020-11-24] MEDS: Niacin 500 MG Tab PO SCH ×2 (07:44→17:29)
[2020-11-24] MEDS: Acetaminophen 325 MG Tab PO SCH ×3 (07:45→17:29)
[2020-11-24] MEDS: Cholecalciferol (Vitamin D3) 25 MCG Tab PO SCH (07:45)
[2020-11-24] MEDS: Cyanocobalamin (Vitamin B12) 1,000 MCG Tab PO SCH (07:46)
[2020-11-24] MEDS: BUPROPION 300 MG PO SCH (19:17)
[2020-11-24] MEDS: LEVOTHYROXINE SODIUM 137 MCG PO SCH (19:17)
[2020-11-24] MEDS: Simvastatin 10 MG Tab PO SCH (19:17)
[2020-11-24] MEDS: Menthol/Methyl Salicylate 85 GM Tube TOP PRN (19:24)
[2020-11-25] MEDS: Potassium Chloride 20 MEQ Tab.ER PO SCH ×4 (07:45→19:24)
[2020-11-25] MEDS: Citalopram 20 MG Tab PO SCH (07:45)
[2020-11-25] MEDS: Furosemide 20 MG Tab PO SCH ×2 (07:45→14:58)
[2020-11-25] MEDS: Fludrocortisone 0.1 MG Tab PO SCH ×2 (07:45→19:24)
[2020-11-25] MEDS: Docusate Sodium 100 MG Cap PO SCH ×2 (07:46→17:38)
[2020-11-25] MEDS: Albuterol/Ipratropium 4 GM Inhalation Spray INH SCH ×4 (07:46→19:22)
[2020-11-25] MEDS: Ferrous Sulfate 325 MG Tab PO SCH (07:46)
[2020-11-25] MEDS: Acetaminophen 325 MG Tab PO SCH ×3 (07:47→17:37)
[2020-11-25] MEDS: Niacin 500 MG Tab PO SCH ×2 (07:47→17:38)
[2020-11-25] MEDS: Cyanocobalamin (Vitamin B12) 1,000 MCG Tab PO SCH (07:48)
[2020-11-25] MEDS: Calcium Carbonate 750 MG Tab.Chew PO SCH (07:48)
[2020-11-25] MEDS: Cholecalciferol (Vitamin D3) 25 MCG Tab PO SCH (07:48)
[2020-11-25] MEDS: BUPROPION 300 MG PO SCH (19:25)
[2020-11-25] MEDS: LEVOTHYROXINE SODIUM 137 MCG PO SCH (19:25)
[2020-11-25] MEDS: Simvastatin 10 MG Tab PO SCH (19:25)
[2020-11-25] MEDS: Menthol/Methyl Salicylate 85 GM Tube TOP PRN (19:26)
[2020-11-26] MEDS: Citalopram 20 MG Tab PO SCH (07:53)
[2020-11-26] MEDS: Docusate Sodium 100 MG Cap PO SCH ×2 (07:53→17:15)
[2020-11-26] MEDS: Albuterol/Ipratropium 4 GM Inhalation Spray INH SCH ×4 (07:53→19:25)
[2020-11-26] MEDS: Ferrous Sulfate 325 MG Tab PO SCH (07:54)
[2020-11-26] MEDS: Potassium Chloride 20 MEQ Tab.ER PO SCH ×4 (07:54→19:28)
[2020-11-26] MEDS: Fludrocortisone 0.1 MG Tab PO SCH ×2 (07:54→19:27)
[2020-11-26] MEDS: Furosemide 20 MG Tab PO SCH ×2 (07:55→14:13)
[2020-11-26] MEDS: Niacin 500 MG Tab PO SCH ×2 (07:56→17:16)
[2020-11-26] MEDS: Calcium Carbonate 750 MG Tab.Chew PO SCH (07:56)
[2020-11-26] MEDS: Acetaminophen 325 MG Tab PO SCH ×3 (07:57→17:16)
[2020-11-26] MEDS: Cyanocobalamin (Vitamin B12) 1,000 MCG Tab PO SCH (07:58)
[2020-11-26] MEDS: Cholecalciferol (Vitamin D3) 25 MCG Tab PO SCH (07:59)
[2020-11-26] MEDS: Ibuprofen 600 MG Tab PO PRN (17:19)
[2020-11-26] MEDS: Simvastatin 10 MG Tab PO SCH (19:28)
[2020-11-26] MEDS: BUPROPION 300 MG PO SCH (19:28)
[2020-11-26] MEDS: LEVOTHYROXINE SODIUM 137 MCG PO SCH (19:28)
[2020-11-26] MEDS: Menthol/Methyl Salicylate 85 GM Tube TOP PRN (19:29)
[2020-11-27] MEDS: Albuterol/Ipratropium 4 GM Inhalation Spray INH SCH ×4 (07:12→19:12)
[2020-11-27] MEDS: Docusate Sodium 100 MG Cap PO SCH ×2 (07:12→17:09)
[2020-11-27] MEDS: Citalopram 20 MG Tab PO SCH (07:12)
[2020-11-27] MEDS: Furosemide 20 MG Tab PO SCH ×2 (07:13→13:15)
[2020-11-27] MEDS: Fludrocortisone 0.1 MG Tab PO SCH ×2 (07:13→19:13)
[2020-11-27] MEDS: Ferrous Sulfate 325 MG Tab PO SCH (07:13)
[2020-11-27] MEDS: Potassium Chloride 20 MEQ Tab.ER PO SCH ×4 (07:13→19:13)
[2020-11-27] MEDS: Calcium Carbonate 750 MG Tab.Chew PO SCH (07:14)
[2020-11-27] MEDS: Niacin 500 MG Tab PO SCH ×2 (07:14→17:09)
[2020-11-27] MEDS: Acetaminophen 325 MG Tab PO SCH ×3 (07:14→17:09)
[2020-11-27] MEDS: Cyanocobalamin (Vitamin B12) 1,000 MCG Tab PO SCH (07:15)
[2020-11-27] MEDS: Cholecalciferol (Vitamin D3) 25 MCG Tab PO SCH (07:15)
[2020-11-27] MEDS: Bisacodyl 5 MG Tab PO PRN (09:30)
[2020-11-27] MEDS: Ibuprofen 600 MG Tab PO PRN (15:05)
[2020-11-27] MEDS: Simvastatin 10 MG Tab PO SCH (19:13)
[2020-11-27] MEDS: LEVOTHYROXINE SODIUM 137 MCG PO SCH (19:13)
[2020-11-27] MEDS: BUPROPION 300 MG PO SCH (19:13)
[2020-11-28] MEDS: Furosemide 20 MG Tab PO SCH ×2 (07:39→15:01)
[2020-11-28] MEDS: Citalopram 20 MG Tab PO SCH (07:39)
[2020-11-28] MEDS: Potassium Chloride 20 MEQ Tab.ER PO SCH ×4 (07:39→19:48)
[2020-11-28] MEDS: Fludrocortisone 0.1 MG Tab PO SCH ×2 (07:39→19:47)
[2020-11-28] MEDS: Albuterol/Ipratropium 4 GM Inhalation Spray INH SCH ×4 (07:40→19:47)
[2020-11-28] MEDS: Ferrous Sulfate 325 MG Tab PO SCH (07:40)
[2020-11-28] MEDS: Cholecalciferol (Vitamin D3) 25 MCG Tab PO SCH (07:41)
[2020-11-28] MEDS: Cyanocobalamin (Vitamin B12) 1,000 MCG Tab PO SCH (07:41)
[2020-11-28] MEDS: Niacin 500 MG Tab PO SCH ×2 (07:41→17:14)
[2020-11-28] MEDS: Docusate Sodium 100 MG Cap PO SCH ×2 (07:42→17:15)
[2020-11-28] MEDS: Acetaminophen 325 MG Tab PO SCH ×3 (07:42→17:15)
[2020-11-28] MEDS: Calcium Carbonate 750 MG Tab.Chew PO SCH (07:42)
[2020-11-28] MEDS: LEVOTHYROXINE SODIUM 137 MCG PO SCH (19:48)
[2020-11-28] MEDS: BUPROPION 300 MG PO SCH (19:48)
[2020-11-28] MEDS: Simvastatin 10 MG Tab PO SCH (19:48)
[2020-11-28] MEDS: Menthol/Methyl Salicylate 85 GM Tube TOP PRN (19:49)
[2020-11-29] MEDS: Ibuprofen 600 MG Tab PO PRN (03:10)
[2020-11-29] MEDS: Citalopram 20 MG Tab PO SCH (07:43)
[2020-11-29] MEDS: Fludrocortisone 0.1 MG Tab PO SCH ×2 (07:43→19:08)
[2020-11-29] MEDS: Furosemide 20 MG Tab PO SCH ×2 (07:44→15:03)
[2020-11-29] MEDS: Potassium Chloride 20 MEQ Tab.ER PO SCH ×4 (07:44→19:09)
[2020-11-29] MEDS: Docusate Sodium 100 MG Cap PO SCH ×2 (07:44→17:39)
[2020-11-29] MEDS: Albuterol/Ipratropium 4 GM Inhalation Spray INH SCH ×4 (07:44→19:07)
[2020-11-29] MEDS: Ferrous Sulfate 325 MG Tab PO SCH (07:45)
[2020-11-29] MEDS: Calcium Carbonate 750 MG Tab.Chew PO SCH (07:45)
[2020-11-29] MEDS: Cyanocobalamin (Vitamin B12) 1,000 MCG Tab PO SCH (07:45)
[2020-11-29] MEDS: Cholecalciferol (Vitamin D3) 25 MCG Tab PO SCH (07:45)
[2020-11-29] MEDS: Niacin 500 MG Tab PO SCH ×2 (07:46→17:38)
[2020-11-29] MEDS: Acetaminophen 325 MG Tab PO SCH ×3 (07:46→17:38)
[2020-11-29] MEDS: BUPROPION 300 MG PO SCH (19:08)
[2020-11-29] MEDS: LEVOTHYROXINE SODIUM 137 MCG PO SCH (19:08)
[2020-11-29] MEDS: Simvastatin 10 MG Tab PO SCH (19:08)
[2020-11-29] MEDS: Menthol/Methyl Salicylate 85 GM Tube TOP PRN (19:09)
[2020-11-29] MEDS: Acetaminophen 325 MG Tab PO PRN (19:10)
[2020-11-30] MEDS: Albuterol/Ipratropium 4 GM Inhalation Spray INH SCH ×4 (07:28→19:37)
[2020-11-30] MEDS: Docusate Sodium 100 MG Cap PO SCH ×2 (07:28→17:35)
[2020-11-30] MEDS: Citalopram 20 MG Tab PO SCH (07:28)
[2020-11-30] MEDS: Ferrous Sulfate 325 MG Tab PO SCH (07:29)
[2020-11-30] MEDS: Fludrocortisone 0.1 MG Tab PO SCH ×2 (07:30→19:39)
[2020-11-30] MEDS: Potassium Chloride 20 MEQ Tab.ER PO SCH ×4 (07:30→19:39)
[2020-11-30] MEDS: Niacin 500 MG Tab PO SCH ×2 (07:31→17:34)
[2020-11-30] MEDS: Furosemide 20 MG Tab PO SCH ×2 (07:31→15:06)
[2020-11-30] MEDS: Acetaminophen 325 MG Tab PO SCH ×3 (07:32→17:34)
[2020-11-30] MEDS: Calcium Carbonate 750 MG Tab.Chew PO SCH (07:32)
[2020-11-30] MEDS: Cyanocobalamin (Vitamin B12) 1,000 MCG Tab PO SCH (07:33)
[2020-11-30] MEDS: Cholecalciferol (Vitamin D3) 25 MCG Tab PO SCH (07:34)
[2020-11-30] MEDS: LEVOTHYROXINE SODIUM 137 MCG PO SCH (19:39)
[2020-11-30] MEDS: BUPROPION 300 MG PO SCH (19:40)
[2020-11-30] MEDS: Simvastatin 10 MG Tab PO SCH (19:40)
[2020-11-30] MEDS: Menthol/Methyl Salicylate 85 GM Tube TOP PRN (19:41)
[2020-12-01] MEDS: Docusate Sodium 100 MG Cap PO SCH ×2 (07:27→17:12)
[2020-12-01] MEDS: Citalopram 20 MG Tab PO SCH (07:27)
[2020-12-01] MEDS: Potassium Chloride 20 MEQ Tab.ER PO SCH ×4 (07:28→19:04)
[2020-12-01] MEDS: Albuterol/Ipratropium 4 GM Inhalation Spray INH SCH ×4 (07:28→19:03)
[2020-12-01] MEDS: Fludrocortisone 0.1 MG Tab PO SCH ×2 (07:28→19:04)
[2020-12-01] MEDS: Ferrous Sulfate 325 MG Tab PO SCH (07:28)
[2020-12-01] MEDS: Niacin 500 MG Tab PO SCH ×2 (07:29→17:12)
[2020-12-01] MEDS: Furosemide 20 MG Tab PO SCH ×2 (07:29→13:13)
[2020-12-01] MEDS: Calcium Carbonate 750 MG Tab.Chew PO SCH (07:29)
[2020-12-01] MEDS: Acetaminophen 325 MG Tab PO SCH ×3 (07:30→17:12)
[2020-12-01] MEDS: Cyanocobalamin (Vitamin B12) 1,000 MCG Tab PO SCH (07:30)
[2020-12-01] MEDS: Cholecalciferol (Vitamin D3) 25 MCG Tab PO SCH (07:31)
[2020-12-01] MEDS: Ibuprofen 600 MG Tab PO PRN (15:07)
[2020-12-01] MEDS: Simvastatin 10 MG Tab PO SCH (19:05)
[2020-12-01] MEDS: LEVOTHYROXINE SODIUM 137 MCG PO SCH (19:05)
[2020-12-01] MEDS: BUPROPION 300 MG PO SCH (19:05)
[2020-12-01] MEDS: Menthol/Methyl Salicylate 85 GM Tube TOP PRN (19:10)
[2020-12-02] MEDS: Acetaminophen 325 MG Tab PO PRN (04:04)
[2020-12-02] MEDS: Citalopram 20 MG Tab PO SCH (07:26)
[2020-12-02] MEDS: Calcium Carbonate 750 MG Tab.Chew PO SCH (07:26)
[2020-12-02] MEDS: Docusate Sodium 100 MG Cap PO SCH ×2 (07:26→17:04)
[2020-12-02] MEDS: Fludrocortisone 0.1 MG Tab PO SCH ×2 (07:27→19:25)
[2020-12-02] MEDS: Potassium Chloride 20 MEQ Tab.ER PO SCH ×4 (07:27→19:25)
[2020-12-02] MEDS: Albuterol/Ipratropium 4 GM Inhalation Spray INH SCH ×4 (07:27→19:25)
[2020-12-02] MEDS: Ferrous Sulfate 325 MG Tab PO SCH (07:27)
[2020-12-02] MEDS: Niacin 500 MG Tab PO SCH ×2 (07:28→17:04)
[2020-12-02] MEDS: Acetaminophen 325 MG Tab PO SCH ×3 (07:28→17:05)
[2020-12-02] MEDS: Furosemide 20 MG Tab PO SCH ×2 (07:28→13:09)
[2020-12-02] MEDS: Cholecalciferol (Vitamin D3) 25 MCG Tab PO SCH (07:29)
[2020-12-02] MEDS: Cyanocobalamin (Vitamin B12) 1,000 MCG Tab PO SCH (07:29)
[2020-12-02] MEDS: Ibuprofen 600 MG Tab PO PRN (07:30)
[2020-12-02] MEDS: LEVOTHYROXINE SODIUM 137 MCG PO SCH (19:26)
[2020-12-02] MEDS: Simvastatin 10 MG Tab PO SCH (19:26)
[2020-12-02] MEDS: BUPROPION 300 MG PO SCH (19:26)
[2020-12-02] MEDS: Menthol/Methyl Salicylate 85 GM Tube TOP PRN (19:27)
[2020-12-03] MEDS: Docusate Sodium 100 MG Cap PO SCH ×2 (07:30→17:06)
[2020-12-03] MEDS: Citalopram 20 MG Tab PO SCH (07:30)
[2020-12-03] MEDS: Fludrocortisone 0.1 MG Tab PO SCH ×2 (07:31→19:08)
[2020-12-03] MEDS: Albuterol/Ipratropium 4 GM Inhalation Spray INH SCH ×4 (07:31→19:07)
[2020-12-03] MEDS: Potassium Chloride 20 MEQ Tab.ER PO SCH ×4 (07:31→19:08)
[2020-12-03] MEDS: Ferrous Sulfate 325 MG Tab PO SCH (07:31)
[2020-12-03] MEDS: Calcium Carbonate 750 MG Tab.Chew PO SCH (07:32)
[2020-12-03] MEDS: Niacin 500 MG Tab PO SCH ×2 (07:32→17:06)
[2020-12-03] MEDS: Acetaminophen 325 MG Tab PO SCH ×3 (07:32→17:06)
[2020-12-03] MEDS: Furosemide 20 MG Tab PO SCH ×2 (07:32→13:10)
[2020-12-03] MEDS: Cholecalciferol (Vitamin D3) 25 MCG Tab PO SCH (07:33)
[2020-12-03] MEDS: Cyanocobalamin (Vitamin B12) 1,000 MCG Tab PO SCH (07:33)
[2020-12-03] MEDS: Ibuprofen 600 MG Tab PO PRN (07:34)
[2020-12-03] MEDS: LEVOTHYROXINE SODIUM 137 MCG PO SCH (19:08)
[2020-12-03] MEDS: BUPROPION 300 MG PO SCH (19:09)
[2020-12-03] MEDS: Simvastatin 10 MG Tab PO SCH (19:09)
[2020-12-04] MEDS: Acetaminophen 325 MG Tab PO PRN (00:21)
[2020-12-04] MEDS: Citalopram 20 MG Tab PO SCH (07:56)
[2020-12-04] MEDS: Potassium Chloride 20 MEQ Tab.ER PO SCH ×4 (07:57→19:28)
[2020-12-04] MEDS: Fludrocortisone 0.1 MG Tab PO SCH ×2 (07:57→19:27)
[2020-12-04] MEDS: Furosemide 20 MG Tab PO SCH ×2 (07:58→15:08)
[2020-12-04] MEDS: Docusate Sodium 100 MG Cap PO SCH ×2 (07:59→17:33)
[2020-12-04] MEDS: Albuterol/Ipratropium 4 GM Inhalation Spray INH SCH ×4 (07:59→19:25)
[2020-12-04] MEDS: Niacin 500 MG Tab PO SCH ×2 (08:00→17:31)
[2020-12-04] MEDS: Ferrous Sulfate 325 MG Tab PO SCH (08:00)
[2020-12-04] MEDS: Calcium Carbonate 750 MG Tab.Chew PO SCH (08:01)
[2020-12-04] MEDS: Ibuprofen 600 MG Tab PO PRN ×2 (08:02→19:30)
[2020-12-04] MEDS: Acetaminophen 325 MG Tab PO SCH ×3 (08:03→17:31)
[2020-12-04] MEDS: Cyanocobalamin (Vitamin B12) 1,000 MCG Tab PO SCH (08:04)
[2020-12-04] MEDS: Cholecalciferol (Vitamin D3) 25 MCG Tab PO SCH (08:04)
[2020-12-04] MEDS: LEVOTHYROXINE SODIUM 137 MCG PO SCH (19:28)
[2020-12-04] MEDS: Simvastatin 10 MG Tab PO SCH (19:28)
[2020-12-04] MEDS: BUPROPION 300 MG PO SCH (19:28)
[2020-12-04] MEDS: Menthol/Methyl Salicylate 85 GM Tube TOP PRN (19:29)
[2020-12-05] MEDS: Citalopram 20 MG Tab PO SCH (07:30)
[2020-12-05] MEDS: Albuterol/Ipratropium 4 GM Inhalation Spray INH SCH ×4 (07:31→19:04)
[2020-12-05] MEDS: Fludrocortisone 0.1 MG Tab PO SCH ×2 (07:31→19:03)
[2020-12-05] MEDS: Ferrous Sulfate 325 MG Tab PO SCH (07:31)
[2020-12-05] MEDS: Docusate Sodium 100 MG Cap PO SCH ×2 (07:31→17:04)
[2020-12-05] MEDS: Furosemide 20 MG Tab PO SCH ×2 (07:32→13:30)
[2020-12-05] MEDS: Potassium Chloride 20 MEQ Tab.ER PO SCH ×4 (07:32→19:03)
[2020-12-05] MEDS: Calcium Carbonate 750 MG Tab.Chew PO SCH (07:32)
[2020-12-05] MEDS: Niacin 500 MG Tab PO SCH ×2 (07:32→17:04)
[2020-12-05] MEDS: Acetaminophen 325 MG Tab PO SCH ×3 (07:33→17:05)
[2020-12-05] MEDS: Cyanocobalamin (Vitamin B12) 1,000 MCG Tab PO SCH (07:33)
[2020-12-05] MEDS: Cholecalciferol (Vitamin D3) 25 MCG Tab PO SCH (07:34)
[2020-12-05] MEDS: Ibuprofen 600 MG Tab PO PRN (07:34)
[2020-12-05] MEDS: LEVOTHYROXINE SODIUM 137 MCG PO SCH (19:04)
[2020-12-05] MEDS: BUPROPION 300 MG PO SCH (19:04)
[2020-12-05] MEDS: Simvastatin 10 MG Tab PO SCH (19:04)
[2020-12-06] MEDS: Fludrocortisone 0.1 MG Tab PO SCH ×2 (07:45→19:26)
[2020-12-06] MEDS: Citalopram 20 MG Tab PO SCH (07:45)
[2020-12-06] MEDS: Potassium Chloride 20 MEQ Tab.ER PO SCH ×4 (07:46→19:26)
[2020-12-06] MEDS: Furosemide 20 MG Tab PO SCH ×2 (07:46→13:44)
[2020-12-06] MEDS: Docusate Sodium 100 MG Cap PO SCH ×2 (07:47→17:20)
[2020-12-06] MEDS: Albuterol/Ipratropium 4 GM Inhalation Spray INH SCH ×4 (07:48→19:26)
[2020-12-06] MEDS: Ferrous Sulfate 325 MG Tab PO SCH (07:48)
[2020-12-06] MEDS: Niacin 500 MG Tab PO SCH ×2 (07:49→17:19)
[2020-12-06] MEDS: Calcium Carbonate 750 MG Tab.Chew PO SCH (07:49)
[2020-12-06] MEDS: Acetaminophen 325 MG Tab PO SCH ×3 (07:50→17:20)
[2020-12-06] MEDS: Cyanocobalamin (Vitamin B12) 1,000 MCG Tab PO SCH (07:52)
[2020-12-06] MEDS: Cholecalciferol (Vitamin D3) 25 MCG Tab PO SCH (07:52)
[2020-12-06] MEDS: Ibuprofen 600 MG Tab PO PRN (12:01)
[2020-12-06] MEDS: Simvastatin 10 MG Tab PO SCH (19:27)
[2020-12-06] MEDS: BUPROPION 300 MG PO SCH (19:27)
[2020-12-06] MEDS: LEVOTHYROXINE SODIUM 137 MCG PO SCH (19:27)
[2020-12-06] MEDS: Menthol/Methyl Salicylate 85 GM Tube TOP PRN (19:27)
[2020-12-07] MEDS: Ibuprofen 600 MG Tab PO PRN ×2 (05:06→17:45)
[2020-12-07] MEDS: Fludrocortisone 0.1 MG Tab PO SCH ×2 (07:40→19:36)
[2020-12-07] MEDS: Citalopram 20 MG Tab PO SCH (07:40)
[2020-12-07] MEDS: Potassium Chloride 20 MEQ Tab.ER PO SCH ×4 (07:41→19:36)
[2020-12-07] MEDS: Albuterol/Ipratropium 4 GM Inhalation Spray INH SCH ×4 (07:42→19:35)
[2020-12-07] MEDS: Ferrous Sulfate 325 MG Tab PO SCH (07:42)
[2020-12-07] MEDS: Docusate Sodium 100 MG Cap PO SCH ×2 (07:42→17:46)
[2020-12-07] MEDS: Furosemide 20 MG Tab PO SCH ×2 (07:43→13:37)
[2020-12-07] MEDS: Niacin 500 MG Tab PO SCH ×2 (07:44→17:45)
[2020-12-07] MEDS: Calcium Carbonate 750 MG Tab.Chew PO SCH (07:44)
[2020-12-07] MEDS: Acetaminophen 325 MG Tab PO SCH ×3 (07:45→17:46)
[2020-12-07] MEDS: Cholecalciferol (Vitamin D3) 25 MCG Tab PO SCH (07:46)
[2020-12-07] MEDS: Cyanocobalamin (Vitamin B12) 1,000 MCG Tab PO SCH (07:46)
[2020-12-07] MEDS: Simvastatin 10 MG Tab PO SCH (19:37)
[2020-12-07] MEDS: LEVOTHYROXINE SODIUM 137 MCG PO SCH (19:37)
[2020-12-07] MEDS: BUPROPION 300 MG PO SCH (19:37)
[2020-12-07] MEDS: Menthol/Methyl Salicylate 85 GM Tube TOP PRN (19:38)
[2020-12-08] MEDS: Acetaminophen 325 MG Tab PO PRN (02:32)
[2020-12-08] MEDS: Citalopram 20 MG Tab PO SCH (07:47)
[2020-12-08] MEDS: Fludrocortisone 0.1 MG Tab PO SCH ×2 (07:47→19:21)
[2020-12-08] MEDS: Potassium Chloride 20 MEQ Tab.ER PO SCH ×4 (07:47→19:21)
[2020-12-08] MEDS: Albuterol/Ipratropium 4 GM Inhalation Spray INH SCH ×4 (07:48→19:21)
[2020-12-08] MEDS: Furosemide 20 MG Tab PO SCH ×2 (07:48→14:58)
[2020-12-08] MEDS: Docusate Sodium 100 MG Cap PO SCH ×2 (07:49→17:30)
[2020-12-08] MEDS: Cyanocobalamin (Vitamin B12) 1,000 MCG Tab PO SCH (07:49)
[2020-12-08] MEDS: Acetaminophen 325 MG Tab PO SCH ×3 (07:49→17:29)
[2020-12-08] MEDS: Cholecalciferol (Vitamin D3) 25 MCG Tab PO SCH (07:49)
[2020-12-08] MEDS: Calcium Carbonate 750 MG Tab.Chew PO SCH (07:50)
[2020-12-08] MEDS: Ferrous Sulfate 325 MG Tab PO SCH (07:50)
[2020-12-08] MEDS: Niacin 500 MG Tab PO SCH ×2 (07:50→17:29)
[2020-12-08] MEDS: LEVOTHYROXINE SODIUM 137 MCG PO SCH (19:22)
[2020-12-08] MEDS: BUPROPION 300 MG PO SCH (19:22)
[2020-12-08] MEDS: Simvastatin 10 MG Tab PO SCH (19:22)
[2020-12-08] MEDS: Menthol/Methyl Salicylate 85 GM Tube TOP PRN (19:22)
[2020-12-09] MEDS: Ibuprofen 600 MG Tab PO PRN ×2 (03:14→19:33)
[2020-12-09] MEDS: Potassium Chloride 20 MEQ Tab.ER PO SCH ×4 (07:29→19:31)
[2020-12-09] MEDS: Citalopram 20 MG Tab PO SCH (07:29)
[2020-12-09] MEDS: Fludrocortisone 0.1 MG Tab PO SCH ×2 (07:29→19:31)
[2020-12-09] MEDS: Albuterol/Ipratropium 4 GM Inhalation Spray INH SCH ×4 (07:30→19:30)
[2020-12-09] MEDS: Furosemide 20 MG Tab PO SCH ×2 (07:30→13:15)
[2020-12-09] MEDS: Ferrous Sulfate 325 MG Tab PO SCH (07:31)
[2020-12-09] MEDS: Cyanocobalamin (Vitamin B12) 1,000 MCG Tab PO SCH (07:31)
[2020-12-09] MEDS: Acetaminophen 325 MG Tab PO SCH ×3 (07:31→17:31)
[2020-12-09] MEDS: Docusate Sodium 100 MG Cap PO SCH ×2 (07:31→17:31)
[2020-12-09] MEDS: Cholecalciferol (Vitamin D3) 25 MCG Tab PO SCH (07:31)
[2020-12-09] MEDS: Calcium Carbonate 750 MG Tab.Chew PO SCH (07:32)
[2020-12-09] MEDS: Niacin 500 MG Tab PO SCH ×2 (07:32→17:30)
[2020-12-09] MEDS: LEVOTHYROXINE SODIUM 137 MCG PO SCH (19:31)
[2020-12-09] MEDS: Menthol/Methyl Salicylate 85 GM Tube TOP PRN (19:32)
[2020-12-09] MEDS: BUPROPION 300 MG PO SCH (19:32)
[2020-12-09] MEDS: Simvastatin 10 MG Tab PO SCH (19:32)
[2020-12-10] MEDS: Ibuprofen 600 MG Tab PO PRN (03:56)
[2020-12-10] MEDS: Citalopram 20 MG Tab PO SCH (07:25)
[2020-12-10] MEDS: Albuterol/Ipratropium 4 GM Inhalation Spray INH SCH ×4 (07:25→19:23)
[2020-12-10] MEDS: Fludrocortisone 0.1 MG Tab PO SCH ×2 (07:25→19:24)
[2020-12-10] MEDS: Potassium Chloride 20 MEQ Tab.ER PO SCH ×4 (07:25→19:24)
[2020-12-10] MEDS: Furosemide 20 MG Tab PO SCH ×2 (07:26→15:06)
[2020-12-10] MEDS: Calcium Carbonate 750 MG Tab.Chew PO SCH (07:27)
[2020-12-10] MEDS: Cholecalciferol (Vitamin D3) 25 MCG Tab PO SCH (07:27)
[2020-12-10] MEDS: Ferrous Sulfate 325 MG Tab PO SCH (07:27)
[2020-12-10] MEDS: Niacin 500 MG Tab PO SCH ×2 (07:27→17:18)
[2020-12-10] MEDS: Docusate Sodium 100 MG Cap PO SCH ×2 (07:27→17:19)
[2020-12-10] MEDS: Acetaminophen 325 MG Tab PO SCH ×3 (07:28→17:18)
[2020-12-10] MEDS: Cyanocobalamin (Vitamin B12) 1,000 MCG Tab PO SCH (07:28)
[2020-12-10] MEDS: LEVOTHYROXINE SODIUM 137 MCG PO SCH (19:24)
[2020-12-10] MEDS: BUPROPION 300 MG PO SCH (19:25)
[2020-12-10] MEDS: Simvastatin 10 MG Tab PO SCH (19:25)
[2020-12-10] MEDS: Menthol/Methyl Salicylate 85 GM Tube TOP PRN (19:25)
[2020-12-11] MEDS: Albuterol/Ipratropium 4 GM Inhalation Spray INH SCH ×4 (07:09→19:33)
[2020-12-11] MEDS: Potassium Chloride 20 MEQ Tab.ER PO SCH ×4 (07:10→19:13)
[2020-12-11] MEDS: Fludrocortisone 0.1 MG Tab PO SCH ×2 (07:10→19:13)
[2020-12-11] MEDS: Citalopram 20 MG Tab PO SCH (07:10)
[2020-12-11] MEDS: Furosemide 20 MG Tab PO SCH ×2 (07:11→15:02)
[2020-12-11] MEDS: Cyanocobalamin (Vitamin B12) 1,000 MCG Tab PO SCH (07:11)
[2020-12-11] MEDS: Cholecalciferol (Vitamin D3) 25 MCG Tab PO SCH (07:11)
[2020-12-11] MEDS: Niacin 500 MG Tab PO SCH ×2 (07:12→17:31)
[2020-12-11] MEDS: Calcium Carbonate 750 MG Tab.Chew PO SCH (07:12)
[2020-12-11] MEDS: Acetaminophen 325 MG Tab PO SCH ×3 (07:12→17:31)
[2020-12-11] MEDS: Docusate Sodium 100 MG Cap PO SCH ×2 (07:12→17:32)
[2020-12-11] MEDS: Ferrous Sulfate 325 MG Tab PO SCH (07:13)
[2020-12-11] MEDS: BUPROPION 300 MG PO SCH (19:13)
[2020-12-11] MEDS: LEVOTHYROXINE SODIUM 137 MCG PO SCH (19:13)
[2020-12-11] MEDS: Simvastatin 10 MG Tab PO SCH (19:14)
[2020-12-12] MEDS: Citalopram 20 MG Tab PO SCH (07:50)
[2020-12-12] MEDS: Furosemide 20 MG Tab PO SCH ×2 (07:50→13:03)
[2020-12-12] MEDS: Potassium Chloride 20 MEQ Tab.ER PO SCH ×4 (07:50→19:11)
[2020-12-12] MEDS: Fludrocortisone 0.1 MG Tab PO SCH ×2 (07:50→19:11)
[2020-12-12] MEDS: Docusate Sodium 100 MG Cap PO SCH ×2 (07:51→17:00)
[2020-12-12] MEDS: Ferrous Sulfate 325 MG Tab PO SCH (07:52)
[2020-12-12] MEDS: Albuterol/Ipratropium 4 GM Inhalation Spray INH SCH ×4 (07:52→19:12)
[2020-12-12] MEDS: Calcium Carbonate 750 MG Tab.Chew PO SCH (07:53)
[2020-12-12] MEDS: Acetaminophen 325 MG Tab PO SCH ×3 (07:53→17:02)
[2020-12-12] MEDS: Niacin 500 MG Tab PO SCH ×2 (07:53→17:01)
[2020-12-12] MEDS: Cyanocobalamin (Vitamin B12) 1,000 MCG Tab PO SCH (07:56)
[2020-12-12] MEDS: Cholecalciferol (Vitamin D3) 25 MCG Tab PO SCH (07:57)
[2020-12-12] MEDS: LEVOTHYROXINE SODIUM 137 MCG PO SCH (19:11)
[2020-12-12] MEDS: BUPROPION 300 MG PO SCH (19:11)
[2020-12-12] MEDS: Simvastatin 10 MG Tab PO SCH (19:12)
[2020-12-13] MEDS: Citalopram 20 MG Tab PO SCH (07:21)
[2020-12-13] MEDS: Docusate Sodium 100 MG Cap PO SCH ×2 (07:21→17:06)
[2020-12-13] MEDS: Albuterol/Ipratropium 4 GM Inhalation Spray INH SCH ×4 (07:22→19:05)
[2020-12-13] MEDS: Ferrous Sulfate 325 MG Tab PO SCH (07:22)
[2020-12-13] MEDS: Fludrocortisone 0.1 MG Tab PO SCH ×2 (07:22→19:06)
[2020-12-13] MEDS: Furosemide 20 MG Tab PO SCH ×2 (07:23→13:06)
[2020-12-13] MEDS: Potassium Chloride 20 MEQ Tab.ER PO SCH ×4 (07:23→19:07)
[2020-12-13] MEDS: Niacin 500 MG Tab PO SCH ×2 (07:24→17:06)
[2020-12-13] MEDS: Calcium Carbonate 750 MG Tab.Chew PO SCH (07:24)
[2020-12-13] MEDS: Acetaminophen 325 MG Tab PO SCH ×3 (07:24→17:06)
[2020-12-13] MEDS: Ibuprofen 600 MG Tab PO PRN ×2 (07:25→19:07)
[2020-12-13] MEDS: Cholecalciferol (Vitamin D3) 25 MCG Tab PO SCH (07:25)
[2020-12-13] MEDS: Cyanocobalamin (Vitamin B12) 1,000 MCG Tab PO SCH (07:25)
[2020-12-13] MEDS: Simvastatin 10 MG Tab PO SCH (19:06)
[2020-12-13] MEDS: LEVOTHYROXINE SODIUM 137 MCG PO SCH (19:06)
[2020-12-13] MEDS: BUPROPION 300 MG PO SCH (19:06)
[2020-12-13] MEDS: Menthol/Methyl Salicylate 85 GM Tube TOP PRN (19:08)
[2020-12-14] MEDS: Ibuprofen 600 MG Tab PO PRN ×2 (07:50→19:45)
[2020-12-14] MEDS: Potassium Chloride 20 MEQ Tab.ER PO SCH ×4 (07:52→19:43)
[2020-12-14] MEDS: guaiFENesin/Dextromethorphan 100-10 MG/5 ML Soln 10 ML Cup PO PRN (07:52)
[2020-12-14] MEDS: Citalopram 20 MG Tab PO SCH (07:53)
[2020-12-14] MEDS: Fludrocortisone 0.1 MG Tab PO SCH ×2 (07:53→19:42)
[2020-12-14] MEDS: Furosemide 20 MG Tab PO SCH ×3 (07:53→13:02)
[2020-12-14] MEDS: Docusate Sodium 100 MG Cap PO SCH ×2 (07:54→17:38)
[2020-12-14] MEDS: Albuterol/Ipratropium 4 GM Inhalation Spray INH SCH ×4 (07:54→19:42)
[2020-12-14] MEDS: Calcium Carbonate 750 MG Tab.Chew PO SCH (07:55)
[2020-12-14] MEDS: Ferrous Sulfate 325 MG Tab PO SCH (07:55)
[2020-12-14] MEDS: Niacin 500 MG Tab PO SCH ×2 (07:55→17:38)
[2020-12-14] MEDS: Acetaminophen 325 MG Tab PO SCH ×3 (07:56→17:39)
[2020-12-14] MEDS: Cyanocobalamin (Vitamin B12) 1,000 MCG Tab PO SCH (07:58)
[2020-12-14] MEDS: Cholecalciferol (Vitamin D3) 25 MCG Tab PO SCH (07:58)
[2020-12-14] MEDS: LEVOTHYROXINE SODIUM 137 MCG PO SCH (19:43)
[2020-12-14] MEDS: Menthol/Methyl Salicylate 85 GM Tube TOP PRN (19:44)
[2020-12-14] MEDS: Simvastatin 10 MG Tab PO SCH (19:44)
[2020-12-14] MEDS: BUPROPION 300 MG PO SCH (19:44)
[2020-12-15] MEDS: guaiFENesin/Dextromethorphan 100-10 MG/5 ML Soln 10 ML Cup PO PRN ×2 (00:08→07:59)
[2020-12-15] MEDS: Fludrocortisone 0.1 MG Tab PO SCH ×2 (07:54→19:45)
[2020-12-15] MEDS: Furosemide 20 MG Tab PO SCH ×3 (07:54→13:11)
[2020-12-15] MEDS: Potassium Chloride 20 MEQ Tab.ER PO SCH ×4 (07:54→19:45)
[2020-12-15] MEDS: Docusate Sodium 100 MG Cap PO SCH ×2 (07:55→17:33)
[2020-12-15] MEDS: Citalopram 20 MG Tab PO SCH (07:55)
[2020-12-15] MEDS: Albuterol/Ipratropium 4 GM Inhalation Spray INH SCH ×4 (07:55→19:43)
[2020-12-15] MEDS: Ferrous Sulfate 325 MG Tab PO SCH (07:56)
[2020-12-15] MEDS: Niacin 500 MG Tab PO SCH ×2 (07:56→17:34)
[2020-12-15] MEDS: Calcium Carbonate 750 MG Tab.Chew PO SCH (07:57)
[2020-12-15] MEDS: Acetaminophen 325 MG Tab PO SCH ×3 (07:57→17:34)
[2020-12-15] MEDS: Cyanocobalamin (Vitamin B12) 1,000 MCG Tab PO SCH (07:58)
[2020-12-15] MEDS: Cholecalciferol (Vitamin D3) 25 MCG Tab PO SCH (07:58)
[2020-12-15] MEDS: Ibuprofen 600 MG Tab PO PRN (07:59)
[2020-12-15] MEDS: LEVOTHYROXINE SODIUM 137 MCG PO SCH (19:45)
[2020-12-15] MEDS: BUPROPION 300 MG PO SCH (19:46)
[2020-12-15] MEDS: Simvastatin 10 MG Tab PO SCH (19:46)
[2020-12-15] MEDS: Menthol/Methyl Salicylate 85 GM Tube TOP PRN (19:47)
[2020-12-16] MEDS: guaiFENesin/Dextromethorphan 100-10 MG/5 ML Soln 10 ML Cup PO PRN (02:24)
[2020-12-16] MEDS: Fludrocortisone 0.1 MG Tab PO SCH ×2 (08:14→19:21)
[2020-12-16] MEDS: Potassium Chloride 20 MEQ Tab.ER PO SCH ×4 (08:14→19:22)
[2020-12-16] MEDS: Ferrous Sulfate 325 MG Tab PO SCH (08:15)
[2020-12-16] MEDS: Docusate Sodium 100 MG Cap PO SCH ×2 (08:15→17:20)
[2020-12-16] MEDS: Albuterol/Ipratropium 4 GM Inhalation Spray INH SCH ×4 (08:15→19:20)
[2020-12-16] MEDS: Furosemide 20 MG Tab PO SCH ×2 (08:15→12:14)
[2020-12-16] MEDS: Citalopram 20 MG Tab PO SCH (08:15)
[2020-12-16] MEDS: Calcium Carbonate 750 MG Tab.Chew PO SCH (08:16)
[2020-12-16] MEDS: Acetaminophen 325 MG Tab PO SCH ×3 (08:17→17:21)
[2020-12-16] MEDS: Niacin 500 MG Tab PO SCH ×2 (08:17→17:21)
[2020-12-16] MEDS: Cholecalciferol (Vitamin D3) 25 MCG Tab PO SCH (08:17)
[2020-12-16] MEDS: Cyanocobalamin (Vitamin B12) 1,000 MCG Tab PO SCH (08:19)
[2020-12-16] MEDS: BUPROPION 300 MG PO SCH (19:22)
[2020-12-16] MEDS: LEVOTHYROXINE SODIUM 137 MCG PO SCH (19:22)
[2020-12-16] MEDS: Simvastatin 10 MG Tab PO SCH (19:23)
[2020-12-16] MEDS: Menthol/Methyl Salicylate 85 GM Tube TOP PRN (19:23)
[2020-12-17] MEDS: Acetaminophen 325 MG Tab PO PRN (02:27)
[2020-12-17] MEDS: Docusate Sodium 100 MG Cap PO SCH ×2 (08:17→18:11)
[2020-12-17] MEDS: Furosemide 20 MG Tab PO SCH ×2 (08:17→12:28)
[2020-12-17] MEDS: Citalopram 20 MG Tab PO SCH (08:17)
[2020-12-17] MEDS: Potassium Chloride 20 MEQ Tab.ER PO SCH ×4 (08:17→19:19)
[2020-12-17] MEDS: Albuterol/Ipratropium 4 GM Inhalation Spray INH SCH ×4 (08:18→19:17)
[2020-12-17] MEDS: Fludrocortisone 0.1 MG Tab PO SCH ×2 (08:18→19:19)
[2020-12-17] MEDS: Ferrous Sulfate 325 MG Tab PO SCH (08:18)
[2020-12-17] MEDS: Calcium Carbonate 750 MG Tab.Chew PO SCH (08:19)
[2020-12-17] MEDS: Niacin 500 MG Tab PO SCH ×2 (08:19→18:11)
[2020-12-17] MEDS: Cholecalciferol (Vitamin D3) 25 MCG Tab PO SCH (08:20)
[2020-12-17] MEDS: Acetaminophen 325 MG Tab PO SCH ×3 (08:20→18:12)
[2020-12-17] MEDS: Cyanocobalamin (Vitamin B12) 1,000 MCG Tab PO SCH (08:20)
[2020-12-17] MEDS: LEVOTHYROXINE SODIUM 137 MCG PO SCH (19:19)
[2020-12-17] MEDS: BUPROPION 300 MG PO SCH (19:19)
[2020-12-17] MEDS: Simvastatin 10 MG Tab PO SCH (19:20)
[2020-12-17] MEDS: Menthol/Methyl Salicylate 85 GM Tube TOP PRN (19:20)
[2020-12-18] MEDS: Potassium Chloride 20 MEQ Tab.ER PO SCH ×4 (07:50→19:44)
[2020-12-18] MEDS: Niacin 500 MG Tab PO SCH ×2 (07:51→17:39)
[2020-12-18] MEDS: Furosemide 20 MG Tab PO SCH ×2 (07:51→12:04)
[2020-12-18] MEDS: Citalopram 20 MG Tab PO SCH (07:51)
[2020-12-18] MEDS: Fludrocortisone 0.1 MG Tab PO SCH ×2 (07:51→19:44)
[2020-12-18] MEDS: Calcium Carbonate 750 MG Tab.Chew PO SCH (07:52)
[2020-12-18] MEDS: Docusate Sodium 100 MG Cap PO SCH ×2 (07:52→17:39)
[2020-12-18] MEDS: Ferrous Sulfate 325 MG Tab PO SCH (07:53)
[2020-12-18] MEDS: Albuterol/Ipratropium 4 GM Inhalation Spray INH SCH ×4 (07:53→19:43)
[2020-12-18] MEDS: Acetaminophen 325 MG Tab PO SCH ×3 (07:54→17:40)
[2020-12-18] MEDS: Cholecalciferol (Vitamin D3) 25 MCG Tab PO SCH (07:55)
[2020-12-18] MEDS: Cyanocobalamin (Vitamin B12) 1,000 MCG Tab PO SCH (07:55)
[2020-12-18] MEDS ORDERED: COVID-19 VACC, MRNA(MODERNA)/PF 100 MCG/0.5 ML VIAL IM ONE (15:00)
[2020-12-18] MEDS: BUPROPION 300 MG PO SCH (19:45)
[2020-12-18] MEDS: Simvastatin 10 MG Tab PO SCH (19:45)
[2020-12-18] MEDS: LEVOTHYROXINE SODIUM 137 MCG PO SCH (19:45)
[2020-12-18] MEDS: Menthol/Methyl Salicylate 85 GM Tube TOP PRN (19:46)
[2020-12-19] MEDS: Albuterol/Ipratropium 4 GM Inhalation Spray INH SCH ×4 (07:03→19:25)
[2020-12-19] MEDS: Citalopram 20 MG Tab PO SCH (07:04)
[2020-12-19] MEDS: Docusate Sodium 100 MG Cap PO SCH ×2 (07:04→17:03)
[2020-12-19] MEDS: Ferrous Sulfate 325 MG Tab PO SCH (07:04)
[2020-12-19] MEDS: Furosemide 20 MG Tab PO SCH ×2 (07:05→11:20)
[2020-12-19] MEDS: Niacin 500 MG Tab PO SCH ×2 (07:05→17:03)
[2020-12-19] MEDS: Potassium Chloride 20 MEQ Tab.ER PO SCH ×4 (07:05→19:23)
[2020-12-19] MEDS: Fludrocortisone 0.1 MG Tab PO SCH ×2 (07:05→19:23)
[2020-12-19] MEDS: Acetaminophen 325 MG Tab PO SCH ×3 (07:06→17:03)
[2020-12-19] MEDS: Calcium Carbonate 750 MG Tab.Chew PO SCH (07:06)
[2020-12-19] MEDS: Cyanocobalamin (Vitamin B12) 1,000 MCG Tab PO SCH (07:07)
[2020-12-19] MEDS: Cholecalciferol (Vitamin D3) 25 MCG Tab PO SCH (07:07)
[2020-12-19] MEDS: Ibuprofen 600 MG Tab PO PRN (07:10)
[2020-12-19] MEDS: LEVOTHYROXINE SODIUM 137 MCG PO SCH (19:23)
[2020-12-19] MEDS: Simvastatin 10 MG Tab PO SCH (19:24)
[2020-12-19] MEDS: BUPROPION 300 MG PO SCH (19:24)
[2020-12-20] MEDS: Albuterol/Ipratropium 4 GM Inhalation Spray INH SCH ×4 (07:57→19:30)
[2020-12-20] MEDS: Fludrocortisone 0.1 MG Tab PO SCH ×2 (08:02→19:31)
[2020-12-20] MEDS: Citalopram 20 MG Tab PO SCH (08:02)
[2020-12-20] MEDS: Potassium Chloride 20 MEQ Tab.ER PO SCH ×4 (08:03→19:31)
[2020-12-20] MEDS: Furosemide 20 MG Tab PO SCH ×2 (08:03→11:58)
[2020-12-20] MEDS: Docusate Sodium 100 MG Cap PO SCH ×2 (08:05→17:00)
[2020-12-20] MEDS: Ferrous Sulfate 325 MG Tab PO SCH (08:05)
[2020-12-20] MEDS: Niacin 500 MG Tab PO SCH ×2 (08:06→17:00)
[2020-12-20] MEDS: Calcium Carbonate 750 MG Tab.Chew PO SCH (08:06)
[2020-12-20] MEDS: Acetaminophen 325 MG Tab PO SCH ×3 (08:07→17:00)
[2020-12-20] MEDS: Cyanocobalamin (Vitamin B12) 1,000 MCG Tab PO SCH (08:08)
[2020-12-20] MEDS: Cholecalciferol (Vitamin D3) 25 MCG Tab PO SCH (08:08)
[2020-12-20] MEDS: BUPROPION 300 MG PO SCH (19:31)
[2020-12-20] MEDS: LEVOTHYROXINE SODIUM 137 MCG PO SCH (19:31)
[2020-12-20] MEDS: Simvastatin 10 MG Tab PO SCH (19:32)
[2020-12-20] MEDS: Menthol/Methyl Salicylate 85 GM Tube TOP PRN (19:32)
[2020-12-20] MEDS: Ibuprofen 600 MG Tab PO PRN (19:33)
[2020-12-21] MEDS: Furosemide 20 MG Tab PO SCH ×2 (08:03→12:01)
[2020-12-21] MEDS: Citalopram 20 MG Tab PO SCH (08:03)
[2020-12-21] MEDS: Potassium Chloride 20 MEQ Tab.ER PO SCH ×4 (08:03→19:34)
[2020-12-21] MEDS: Fludrocortisone 0.1 MG Tab PO SCH ×2 (08:03→19:34)
[2020-12-21] MEDS: Albuterol/Ipratropium 4 GM Inhalation Spray INH SCH ×4 (08:05→19:33)
[2020-12-21] MEDS: Docusate Sodium 100 MG Cap PO SCH ×2 (08:05→17:30)
[2020-12-21] MEDS: Calcium Carbonate 750 MG Tab.Chew PO SCH (08:06)
[2020-12-21] MEDS: Ferrous Sulfate 325 MG Tab PO SCH (08:06)
[2020-12-21] MEDS: Niacin 500 MG Tab PO SCH ×2 (08:06→17:30)
[2020-12-21] MEDS: Acetaminophen 325 MG Tab PO SCH ×3 (08:06→17:31)
[2020-12-21] MEDS: Cholecalciferol (Vitamin D3) 25 MCG Tab PO SCH (08:07)
[2020-12-21] MEDS: Cyanocobalamin (Vitamin B12) 1,000 MCG Tab PO SCH (08:07)
[2020-12-21] MEDS: Ibuprofen 600 MG Tab PO PRN ×2 (08:08→19:36)
[2020-12-21] MEDS: LEVOTHYROXINE SODIUM 137 MCG PO SCH (19:34)
[2020-12-21] MEDS: Simvastatin 10 MG Tab PO SCH (19:34)
[2020-12-21] MEDS: BUPROPION 300 MG PO SCH (19:34)
[2020-12-21] MEDS: Menthol/Methyl Salicylate 85 GM Tube TOP PRN (19:35)
[2020-12-22] MEDS: Citalopram 20 MG Tab PO SCH (08:53)
[2020-12-22] MEDS: Docusate Sodium 100 MG Cap PO SCH ×2 (08:54→17:36)
[2020-12-22] MEDS: Albuterol/Ipratropium 4 GM Inhalation Spray INH SCH ×4 (08:54→19:39)
[2020-12-22] MEDS: Potassium Chloride 20 MEQ Tab.ER PO SCH ×4 (08:55→19:39)
[2020-12-22] MEDS: Fludrocortisone 0.1 MG Tab PO SCH ×2 (08:55→19:39)
[2020-12-22] MEDS: Ferrous Sulfate 325 MG Tab PO SCH (08:55)
[2020-12-22] MEDS: Niacin 500 MG Tab PO SCH ×2 (08:56→17:37)
[2020-12-22] MEDS: Furosemide 20 MG Tab PO SCH ×2 (08:56→12:22)
[2020-12-22] MEDS: Acetaminophen 325 MG Tab PO SCH ×3 (08:57→17:37)
[2020-12-22] MEDS: Calcium Carbonate 750 MG Tab.Chew PO SCH (08:57)
[2020-12-22] MEDS: Cholecalciferol (Vitamin D3) 25 MCG Tab PO SCH (08:59)
[2020-12-22] MEDS: Cyanocobalamin (Vitamin B12) 1,000 MCG Tab PO SCH (08:59)
[2020-12-22] MEDS: Simvastatin 10 MG Tab PO SCH (19:40)
[2020-12-22] MEDS: BUPROPION 300 MG PO SCH (19:40)
[2020-12-22] MEDS: LEVOTHYROXINE SODIUM 137 MCG PO SCH (19:40)
[2020-12-22] MEDS: Menthol/Methyl Salicylate 85 GM Tube TOP PRN (19:41)
[2020-12-22] MEDS: Ibuprofen 600 MG Tab PO PRN (19:42)
[2020-12-23] MEDS: Citalopram 20 MG Tab PO SCH (07:33)
[2020-12-23] MEDS: Docusate Sodium 100 MG Cap PO SCH ×2 (07:34→17:02)
[2020-12-23] MEDS: Fludrocortisone 0.1 MG Tab PO SCH ×2 (07:34→19:14)
[2020-12-23] MEDS: Ferrous Sulfate 325 MG Tab PO SCH (07:34)
[2020-12-23] MEDS: Albuterol/Ipratropium 4 GM Inhalation Spray INH SCH ×4 (07:34→19:16)
[2020-12-23] MEDS: Potassium Chloride 20 MEQ Tab.ER PO SCH ×4 (07:35→19:14)
[2020-12-23] MEDS: Furosemide 20 MG Tab PO SCH ×2 (07:35→11:26)
[2020-12-23] MEDS: Niacin 500 MG Tab PO SCH ×2 (07:35→17:02)
[2020-12-23] MEDS: Calcium Carbonate 750 MG Tab.Chew PO SCH (07:36)
[2020-12-23] MEDS: Acetaminophen 325 MG Tab PO SCH ×3 (07:36→17:03)
[2020-12-23] MEDS: Ibuprofen 600 MG Tab PO PRN (07:37)
[2020-12-23] MEDS: Cholecalciferol (Vitamin D3) 25 MCG Tab PO SCH (07:38)
[2020-12-23] MEDS: Cyanocobalamin (Vitamin B12) 1,000 MCG Tab PO SCH (07:38)
[2020-12-23] MEDS: Simvastatin 10 MG Tab PO SCH (19:15)
[2020-12-23] MEDS: BUPROPION 300 MG PO SCH (19:15)
[2020-12-23] MEDS: LEVOTHYROXINE SODIUM 137 MCG PO SCH (19:15)
[2020-12-24] MEDS: Ibuprofen 600 MG Tab PO PRN (07:00)
[2020-12-24] MEDS: Citalopram 20 MG Tab PO SCH (07:01)
[2020-12-24] MEDS: Ferrous Sulfate 325 MG Tab PO SCH (07:01)
[2020-12-24] MEDS: Albuterol/Ipratropium 4 GM Inhalation Spray INH SCH ×4 (07:01→19:08)
[2020-12-24] MEDS: Docusate Sodium 100 MG Cap PO SCH ×2 (07:01→17:04)
[2020-12-24] MEDS: Acetaminophen 325 MG Tab PO SCH ×3 (07:02→17:04)
[2020-12-24] MEDS: Fludrocortisone 0.1 MG Tab PO SCH ×2 (07:02→19:09)
[2020-12-24] MEDS: Potassium Chloride 20 MEQ Tab.ER PO SCH ×4 (07:03→19:09)
[2020-12-24] MEDS: Niacin 500 MG Tab PO SCH ×2 (07:03→17:04)
[2020-12-24] MEDS: Furosemide 20 MG Tab PO SCH ×2 (07:03→11:09)
[2020-12-24] MEDS: Cyanocobalamin (Vitamin B12) 1,000 MCG Tab PO SCH (07:04)
[2020-12-24] MEDS: Calcium Carbonate 750 MG Tab.Chew PO SCH (07:04)
[2020-12-24] MEDS: Cholecalciferol (Vitamin D3) 25 MCG Tab PO SCH (07:04)
[2020-12-24] MEDS: Aluminum Hydroxide/Magnesium Hydroxide/Simethicone Susp 30 ML Cup PO PRN (11:15)
[2020-12-24] MEDS: Menthol/Methyl Salicylate 85 GM Tube TOP PRN (19:09)
[2020-12-24] MEDS: BUPROPION 300 MG PO SCH (19:09)
[2020-12-24] MEDS: Simvastatin 10 MG Tab PO SCH (19:09)
[2020-12-24] MEDS: LEVOTHYROXINE SODIUM 137 MCG PO SCH (19:09)
[2020-12-25] MEDS: Calcium Carbonate 750 MG Tab.Chew PO SCH (07:29)
[2020-12-25] MEDS: Albuterol/Ipratropium 4 GM Inhalation Spray INH SCH ×4 (07:29→19:34)
[2020-12-25] MEDS: Citalopram 20 MG Tab PO SCH (07:30)
[2020-12-25] MEDS: Ibuprofen 600 MG Tab PO PRN (07:30)
[2020-12-25] MEDS: Potassium Chloride 20 MEQ Tab.ER PO SCH ×4 (07:31→19:37)
[2020-12-25] MEDS: Fludrocortisone 0.1 MG Tab PO SCH ×2 (07:31→19:37)
[2020-12-25] MEDS: Ferrous Sulfate 325 MG Tab PO SCH (07:31)
[2020-12-25] MEDS: Furosemide 20 MG Tab PO SCH ×2 (07:31→11:21)
[2020-12-25] MEDS: Docusate Sodium 100 MG Cap PO SCH ×2 (07:31→17:10)
[2020-12-25] MEDS: Niacin 500 MG Tab PO SCH ×2 (07:32→17:10)
[2020-12-25] MEDS: Acetaminophen 325 MG Tab PO SCH ×3 (07:32→17:11)
[2020-12-25] MEDS: Cyanocobalamin (Vitamin B12) 1,000 MCG Tab PO SCH (07:33)
[2020-12-25] MEDS: Cholecalciferol (Vitamin D3) 25 MCG Tab PO SCH (07:33)
[2020-12-25] MEDS: LEVOTHYROXINE SODIUM 137 MCG PO SCH (19:37)
[2020-12-25] MEDS: Menthol/Methyl Salicylate 85 GM Tube TOP PRN (19:38)
[2020-12-25] MEDS: Simvastatin 10 MG Tab PO SCH (19:38)
[2020-12-25] MEDS: BUPROPION 300 MG PO SCH (19:38)
[2020-12-26] MEDS: Citalopram 20 MG Tab PO SCH (08:23)
[2020-12-26] MEDS: Fludrocortisone 0.1 MG Tab PO SCH ×2 (08:23→19:36)
[2020-12-26] MEDS: Furosemide 20 MG Tab PO SCH ×2 (08:24→11:43)
[2020-12-26] MEDS: Docusate Sodium 100 MG Cap PO SCH ×2 (08:24→17:31)
[2020-12-26] MEDS: Potassium Chloride 20 MEQ Tab.ER PO SCH ×4 (08:24→19:36)
[2020-12-26] MEDS: Ferrous Sulfate 325 MG Tab PO SCH (08:25)
[2020-12-26] MEDS: Albuterol/Ipratropium 4 GM Inhalation Spray INH SCH ×4 (08:25→19:35)
[2020-12-26] MEDS: Niacin 500 MG Tab PO SCH ×2 (08:26→17:31)
[2020-12-26] MEDS: Calcium Carbonate 750 MG Tab.Chew PO SCH (08:26)
[2020-12-26] MEDS: Cholecalciferol (Vitamin D3) 25 MCG Tab PO SCH (08:27)
[2020-12-26] MEDS: Acetaminophen 325 MG Tab PO SCH ×3 (08:27→17:32)
[2020-12-26] MEDS: Cyanocobalamin (Vitamin B12) 1,000 MCG Tab PO SCH (08:28)
--- NOTE | 2020-12-26 10:52 | PCM.PN ---
- General Info Date of Service: 12/26/20 Admission Dx/Problem (Free Text): 1. Myotonic dystrophy with secondary weakness 2. CHF 3. O2 dependent COPD Subjective Update: Patient complains of exacerbation of chronic bilateral lower leg and low back pain with no history of recent fall or injury. She also complains of nonspecific 7/10 left upper quadrant abdominal pain with small bowel movement this morning and excellent bowel movement yesterday. She denies any gross hematuria or other UTI symptoms. No recent history of other abdominal pain, heartburn, nausea, diarrhea, melena, gross hematochezia, or any food intolerance, including fatty foods, etc.. Functional Status: Reports: Pain Controlled, Tolerating Diet, Ambulating (With assist), Urinating, New Symptoms (As above). Denies: Incentive Spirometry Pain Score: 7 - Review of Systems General: Reports: Weakness (Stable chronic), Fatigue (Stable chronic), Appetite (Adequate). Denies: Fever, Malaise, Chills, Night Sweats HEENT: Reports: No Symptoms. Denies: Eye Pain, Glasses, Headaches, Sore Throat, Rhinitis, Visual Changes Pulmonary: Reports: No Symptoms. Denies: Shortness of Breath, Pleuritic Chest Pain, Cough, Sputum, Hemoptysis, Wheezing Cardiovascular: Reports: Edema (Stable chronic). Denies: Palpitations, Dyspnea on Exertion, Orthopnea, Lightheadedness Gastrointestinal: Reports: Abdominal Pain (As above). Denies: Constipation, Decreased Appetite, Diarrhea, Difficulty Swallowing, Flatus, Hematochezia, Melena, Nausea, Vomiting Genitourinary: Reports: No Symptoms. Denies: Dysuria, Frequency, Burning, Urgency, Incontinence, Hematuria, Retention, Flank Pain Musculoskeletal: Reports: Back Pain (Low back painchronic with mild exacerbation as above), Leg Pain (Bilateral as abovechronic). Denies: Neck Pain, Shoulder Pain, Arm Pain, Hand Pain, Joint Pain, Joint Swelling Skin: Reports: No Symptoms. Denies: Diaphoresis, Bruising, Rash Neurological: Reports: Pre-Existing Deficit (Stable), Difficulty Walking (Stable chronic), Weakness (Stable chronic). Denies: Confusion, Dizziness, Numbness, Paresthesia, Tingling Psychiatric: Reports: No Symptoms. Denies: Confusion, Depression, Anxiety, Ag itation, Cravings, Hallucinations - Patient Data Vitals - Most Recent: Last Vital Signs Temp 36.6 C 12/25/20 20:00 Pulse 54 L 12/19/20 08:00 Resp 16 12/12/20 10:00 BP 95/55 L 12/19/20 08:00 Pulse Ox 94 L 12/19/20 08:00 Weight - Most Recent: 84.096 kg (83.7 kg 2 months ago) I&O - Last 24 Hours: Intake & Output 12/25/20 12/26/20 12/26/20 22:59 06:59 14:59 Intake Total 470 640 Balance 470 640 Imaging Impressions - Last 24 Hours: None Lab Results Last 24 Hours: Scheduled for 12/27/2020 [facility] Results Last 24 Hours: None Med Orders - Current: Current Medications Acetaminophen (Tylenol) 650 mg PO TID [facility] Last Admin: 12/26/20 08:27 Dose: 650 mg Documented by: Acetaminophen (Tylenol) 650 mg PO Q4H PRN PRN Reason: Pain Last Admin: 12/17/20 02:27 Dose: 650 mg Documented by: Al Hydroxide/Mg Hydroxide (Mag-Al Plus) 30 ml PO Q4H PRN PRN Reason: Indigestion Last Admin: 12/24/20 11:15 Dose: 30 ml Documented by: Albuterol/Ipratropium (Combivent Respimat) 0 gm INH QID [facility] Last Admin: 12/26/20 08:25 Dose: 1 puff Documented by: Albuterol/Ipratropium (Combivent Respimat) 0 gm INH Q4H PRN PRN Reason: Dyspnea Artificial Tears (Liquitears 1.4% Ophth Soln) 1 ml EYEBOTH QID PRN PRN Reason: Dry Eyes Last Admin: 09/08/20 14:02 Dose: 2 drop Documented by: Bisacodyl (Dulcolax) 5 mg PO DAILY PRN PRN Reason: Constipation Last Admin: 11/27/20 09:30 Dose: 5 mg Documented by: Calcium Carbonate/Glycine (Tums Extra Strength) 1,500 mg PO DAILY [facility] Last Admin: 12/26/20 08:26 Dose: 1,500 mg Documented by: Cholecalciferol (Vitamin D3) 25 mcg PO DAILY [facility] Last Admin: 12/26/20 08:27 Dose: 25 mcg Documented by: Citalopram Hydrobromide (Celexa) 20 mg PO QAM [facility] Last Admin: 12/26/20 08:23 Dose: 20 mg Documented by: Cyanocobalamin (Vitamin B12) 1,000 mcg PO QAM [facility] Last Admin: 12/26/20 08:28 Dose: 1,000 mcg Documented by: Docusate Sodium (Colace) 100 mg PO BID [facility] Last Admin: 12/26/20 08:24 Dose: 100 mg Documented by: Ferrous Sulfate (Ferrous Sulfate) 325 mg PO WITHBREAKFAST [facility] Last Admin: 12/26/20 08:25 Dose: 325 mg Documented by: Fludrocortisone Acetate (Florinef) 0.1 mg PO BEDTIME [facility] Last Admin: 12/25/20 19:37 Dose: 0.1 mg Documented by: Fludrocortisone Acetate (Florinef) 0.2 mg PO QAM [facility] Last Admin: 12/26/20 08:23 Dose: 0.2 mg Documented by: Furosemide (Lasix) 20 mg PO BID@0800,1200 [facility] Last Admin: 12/26/20 08:24 Dose: 20 mg Documented by: Guaifenesin/Dextromethorphan (Robitussin Dm) 10 ml PO Q4H PRN PRN Reason: Cough Last Admin: 12/16/20 02:24 Dose: 10 ml Documented by: Ibuprofen (Motrin) 600 mg PO Q6H PRN PRN Reason: Breakthrough Pain Last Admin: 12/25/20 07:30 Dose: 600 mg Documented by: Magnesium Hydroxide (Milk Of Magnesia) 30 ml PO DAILY PRN PRN Reason: Constipation Last Admin: 10/03/20 19:43 Dose: 30 ml Documented by: Methyl Salicylate (Icy Hot Cream) 1 gm TOP QID PRN PRN Reason: Pain (mild 1-3) Last Admin: 12/25/20 19:38 Dose: 1 applic Documented by: Niacin (Niacin) 500 mg PO BID [facility] Last Admin: 12/26/20 08:26 Dose: 500 mg Documented by: Levothyroxine Sodium (137 Mcg Tablets) 137 mcg PO BEDTIME [facility] Last Admin: 12/25/20 19:37 Dose: 137 mcg Documented by: Bupropion Xl 300mg (Tablets) 1 each PO BEDTIME [facility] Last Admin: 12/25/20 19:38 Dose: 1 each Documented by: Omeprazole (Omeprazole) 20 mg PO BIDAC [facility] Stop: 01/01/21 17:31 Potassium Chloride (Klor-Con M20) 40 meq PO QID [facility] Last Admin: 12/26/20 08:24 Dose: 40 meq Documented by: Simvastatin (Zocor) 10 mg PO BEDTIME [facility] Last Admin: 12/25/20 19:38 Dose: 10 mg Documented by: Discontinued Medications Albuterol/Ipratropium (Duoneb 3.0-0.5 Mg/3 Ml) 3 ml NEB Q4HRRT PRN PRN Reason: Dyspnea Last Admin: 07/04/20 08:04 Dose: 3 ml Documented by: Albuterol/Ipratropium (Duoneb 3.0-0.5 Mg/3 Ml) 3 ml NEB QIDRT [facility] Last Admin: 09/27/20 08:09 Dose: 3 ml Documented by: COVID-19 Vaccine mRNA LNP-S (MOD) (PF) (Moderna Covid19 Vacc(Unapprov)) 100 mcg IM .ONCE ONE Stop: 11/20/20 11:01 Last Admin: 11/20/20 11:40 Dose: 100 mcg Documented by: COVID-19 Vaccine mRNA LNP-S (MOD) (PF) (Moderna Covid19 Vacc(Unapprov)) 100 mcg IM .ONCE ONE Stop: 12/18/20 15:01 Last Admin: 12/18/20 15:18 Dose: 100 mcg Documented by: Cephalexin (Keflex) 250 mg PO BID [facility] Stop: 11/20/20 20:00 Cephalexin (Keflex) 500 mg PO BID [facility] Stop: 11/20/20 08:01 Last Admin: 11/10/20 13:54 Dose: Not Given Documented by: Furosemide (Lasix) 20 mg PO BID@08,1400 [facility] Last Admin: 12/16/20 08:15 Dose: 20 mg Documented by: Furosemide (Lasix) 20 mg PO BID [facility] Last Admin: 08/14/20 08:52 Dose: 20 mg Documented by: Influenza Virus Vaccine (Afluria Quad 2019- (3yr Up)) 60 mcg IM .ONCE ONE Stop: 09/05/20 10:01 Last Admin: 09/05/20 10:16 Dose: 60 mcg Documented by: Neomycin/Polymyxin/Bacitracin (Triple Antibiotic Oint) 1 each TOP BID [facility] Last Admin: 11/10/20 07:40 Dose: 1 each Documented by: Neomycin/Polymyxin/Bacitracin (Triple Antibiotic Oint) 1 each TOP Q12H [facility] Last Admin: 11/21/20 19:35 Dose: 1 each Documented by: Cephalexin 500mg (Caps) 1 each PO BID [facility] Stop: 11/19/20 18:01 Last Admin: 11/19/20 17:39 Dose: 1 each Documented by: - Exam Quality Assessment: Supplemental Oxygen, DVT Prophylaxis. No: Central Line/PICC, Urine Catheter, Skin Breakdown, Restraints General: Alert, Oriented, Cooperative, No Acute Distress HEENT: Pupils Equal, Pupils Reactive, EOMI, Mucous Membr. Moist/[place]rape[place]. No: Scleral Icterus Neck: Supple, Trachea Midline, No JVD, No Thyromegaly, +2 Carotid Pulse wo Bruit. No: Lymphadenopathy Lungs: Rales (Stable mild bilateral basilar) Cardiovascular: Regular Rate, Regular Rhythm, No Murmurs. No: Gallops, Rubs GI/Abdominal Exam: Normal Bowel Sounds, Soft, No Organomegaly, No Distention, No Abnormal Bruit, No Mass, Tender (Mild left upper quadrant), Other (Obese). No: Guarding, Rigid, Rebound (Female) Exam: Deferred Back Exam: Normal Inspection, Full Range of Motion. No: CVA Tenderness (L), CVA Tenderness (R), Muscle Spasm Extremities: Normal Range of Motion, Non-Tender, Normal Capillary Refill, Pedal Edema (Stable mild lymphedema of the lower extremities bilaterally with Xavier wraps in place). No: Lurdes's Sign Peripheral Pulses: 2+: Radial (L), Radial (R), Dorsalis Pedis (L), Dorsalis Pedis (R) Skin: Warm, Dry, Intact. No: Ecchymosis Neurological: No New Focal Deficit, Other (Stable chronic generalized weakness) Psy/Mental Status: Anxious, Depressed (Mild mild). No: Agitated, Hallucinations, Withdrawal Symptoms Sepsis Event Note - Evaluation Sepsis Screening Result: No Definite Risk - Problem List & Annotations (1) Steinert myotonic dystrophy syndrome SNOMED Code(s): 09182279 Code(s): G71.11 - MYOTONIC MUSCULAR DYSTROPHY Status: Chronic Priority: Medium Current Visit: Yes Annotation/Comment:: Stable by history and today's exam. Physical therapy in effect. Continue current medical therapy. Repeat blood work scheduled for 12/27/2020. (2) CHF, Congestive heart failure SNOMED Code(s): 17070520 Code(s): I50.9 - HEART FAILURE, UNSPECIFIED Status: Chronic Priority: Medium Current Visit: Yes Annotation/Comment:: Patient is still O2 dependent with O2 sat of 96-97% on 3 L/min by nasal cannula. No recent chest pain or anginal type symptoms. Note previous progressive nonspecific bilateral lower lobe atelectasis versus nonspecific changes, right greater than left, with CT scan of the chest performed on 12/29/19. Chest x-ray, PA and lateral, on 04/25/20 showed stable bilateral lower lobe atelectasis with no significant evidence of CHF. Previous CT scan in December as above did show evidence of atelectasis and mild pleural effusions consistent with CHF. No significant CHF by clinical exam today. Yearly blood work, EKG, chest x-ray, etc. were conducted on 04/25/20 with further blood work to be conducted tomorrow as above. Improved/stable lateral wall cardiac ischemia by EKG since April 2019 with resolved first-degree AV block and stable complete bifascicular bundle-branch block. Stable dependent edema with the patient having a stable weight today with only a 0.4 kg weight gain during the last 2 months. The patient previously intentionally lost 13.7 kg based on exam in August 2019. Note previous dietary noncompliance, however much improved. Previous discontinuation of high protein Glucerna supplements as snacks secondary to her previous weight gain. Dietary consultation in effect. Activity level is overall low. An echocardiogram had also been performed on 12/28/19 with excellent ejection fraction of 5060 percent.The patient's CODE STATUS was previously addressed per request from the nursing staff with the patient wishing to continue to be a FULL CODE. Continue to observe closely. Note previous history of PVCs, complete right bundle branch block/bifascicular bundl e-branch block, first-degree AV block, severe dyslipidemia hypokalemia, hypophosphatemia, and hyponatremia. Mild persistent hypertriglyceridemia with borderline hypernatremia on 04/25. Note normal magnesium on the potassium, and phosphate levels on 04/25. Continue to observe for now with no further change in medical therapy. Further cardiology workup and/or consultation depending on her clinical course. Note Increase of her Lasix therapy, etc. on 12/21/19 with overall good clinical results. (3) Tardive dyskinesia SNOMED Code(s): 617119729 Code(s): G24.01 - DRUG INDUCED SUBACUTE DYSKINESIA Status: Chronic Priority: Medium Current Visit: Yes Annotation/Comment:: Stable by history. Her perioral tardive dyskinesia actually increased after discontinuation of previous chronic Reglan therapy with no other aggravating medications noted. Neurological status is otherwise stable. Note that patient does have complete dentures uppers and lowers, which does tend to aggravate her problem. No significant clinical relevance at this time with no change in medical therapy for now. (4) COPD (chronic obstructive pulmonary disease) SNOMED Code(s): 37665212 Code(s): J44.9 - CHRONIC OBSTRUCTIVE PULMONARY DISEASE, UNSPECIFIED Status: Chronic Priority: Medium Current Visit: Yes Qualifiers: COPD type: emphysema Emphysema type: panlobular Qualified Code(s): J43.1 - Panlobular emphysema Annotation/Comment:: As above. O2 dependent COPD stable by history with no bronchitic symptoms at this time. Continue current medical therapy. Note chronic bilateral lower lobe atelectasis with incentive spirometry and current O2 therapy at 3 L/m by nasal cannula as above. No evidence of pneumonia or significant bronchitis despite chest x-ray report on 04/25/20. Patient does have a previous history of distant postoperative respiratory distress, although no complications after previous dental surgery. Patient has been changed from previous nebulizer therapy to inhalers secondary to current COVID-19 pandemic. (5) Hyperlipidemia SNOMED Code(s): 39349351 Code(s): E78.5 - HYPERLIPIDEMIA, UNSPECIFIED Status: Chronic Priority: Medium Current Visit: Yes Annotation/Comment:: As above. Previous history of severe dyslipidemia with aggressive medical therapy at this time. Dietary compliance has improved with intentional weight loss as above. No change in medical therapy for now with previous history of CPK elevation. (6) Hypothyroidism SNOMED Code(s): 66968412 Code(s): E03.9 - HYPOTHYROIDISM, UNSPECIFIED Status: Chronic Priority: Medium Current Visit: Yes Annotation/Comment:: TSH normal on 04/25/20. No other thyroid type symptoms. (7) Mixed anxiety and depressive disorder SNOMED Code(s): 171459871 Code(s): F41.8 - OTHER SPECIFIED ANXIETY DISORDERS Status: Chronic Priority: Medium Current Visit: Yes Annotation/Comment:: Stable by history from the patient and nursing staff, although mild persistent anxious and depressive affect today. Observe for now. Previous worsening of her anxiety depression disorder with Wellbutrin SR therapy increased on 12/21/19. By my clinical evaluation her symptoms have improved since that time, although she still needs to be watched closely by nursing staff, etc.. Patient is still relatively active with physical therapy, however she is still often alone in her room. The patient was once again encouraged to become more active with social activities, etc. with nursing staff also encouraged to help the patient be more interactive. (8) Osteoarthritis SNOMED Code(s): 075813420 Code(s): M19.90 - UNSPECIFIED OSTEOARTHRITIS, UNSPECIFIED SITE Status: Chronic Priority: Medium Current Visit: Yes Annotation/Comment:: Exacerbation of her chronic low back pain and bilateral lower leg pain today as above. Observe for now secondary to her abdominal complaints as above. Consider IM Depo-Medrol depending on her clinical course. Blood work scheduled for tomorrow as above. Patient is on as needed ibuprofen with muscle rub, etc. already ordered. Observe this and her chronic headaches for now. Note previous discontinuation of Ultram. PT in effect as above. Note status post bilateral ankle ORIF secondary to fractures. Previous recurrent falls in February 2019 have improved with no recent significant falls or injuries. (9) Vitamin B12 deficiency (non anemic) SNOMED Code(s): 08358621 Code(s): E53.8 - DEFICIENCY OF OTHER SPECIFIED B GROUP VITAMINS Status: Chronic Priority: Medium Current Visit: Yes Annotation/Comment:: Persistent macrocytosis as above with normal folic acid and vitamin B 12 level on 04/25/2020. Observe for now. (10) Hypoalbuminemia SNOMED Code(s): 604632873 Code(s): E88.09 - [facility] DISORDERS OF PLASMA-PROTEIN METABOLISM, NEC Status: Chronic Priority: Medium Current Visit: Yes Annotation/Comment:: Chronic problem. Glucerna high-protein has been discontinued per recommendations from dietitian secondary to persistent weight gain. Continue high-protein diet as above. Observe for now. (11) Peptic reflux disease SNOMED Code(s): 395448609 Code(s): K21.9 - GASTRO-ESOPHAGEAL REFLUX DISEASE WITHOUT ESOPHAGITIS Status: Chronic Priority: Medium Current Visit: Yes Annotation/Comment:: Mild exacerbation today. Previous chronic of Prilosec and Pepcid have long since been discontinued secondary to her previous history of refractory C. difficile colitis. Secondary to patient's current ibuprofen use and her abdominal complaints today Prilosec will be initiated on a twice daily basis for 1 week only. Additional amylase and lipase ordered for 2/3 with additional x-rays, etc. depending on her clinical course. - Problem List Review Problem List Initiated/Reviewed/Updated: Yes - My Orders Last 24 Hours: My Active Orders 12/26/20 17:30 Omeprazole 20 mg PO BIDAC 12/27/20 05:11 AMYLASE [CHEM] Routine CBC WITH AUTO DIFF [HEME] Routine CK W CKMB [CHEM] Routine COMPREHENSIVE METABOLIC PN,CMP [CHEM] Routine LIPASE [CHEM] Routine PRO B-TYPE NATRIUR PEPT,BNPPRO [CHEM] Routine TROPONIN I [CHEM] Routine - Assessment Assessment:: As above. - Plan Plan:: As above. Extensive precautions were given to the patient, who is in agreement with the treatment plan. The patient will be recertified for an additional 60 days with long-term chronic swing bed care required secondary to multiple health issues as above.
[2020-12-26] MEDS: Omeprazole 20 MG Cap.CR PO SCH (17:30)
[2020-12-26] MEDS: LEVOTHYROXINE SODIUM 137 MCG PO SCH (19:36)
[2020-12-26] MEDS: BUPROPION 300 MG PO SCH (19:36)
[2020-12-26] MEDS: Simvastatin 10 MG Tab PO SCH (19:37)
[2020-12-26] MEDS: Ibuprofen 600 MG Tab PO PRN (19:37)
[2020-12-26] MEDS: Menthol/Methyl Salicylate 85 GM Tube TOP PRN (19:38)
[2020-12-27 07:53] LABS: CHLORIDE,CL 110 mmol/L (98-107); SODIUM,NA 144 mmol/L (136-145)
[2020-12-27] MEDS: Fludrocortisone 0.1 MG Tab PO SCH ×2 (08:38→19:21)
[2020-12-27] MEDS: Omeprazole 20 MG Cap.CR PO SCH ×2 (08:38→17:50)
[2020-12-27] MEDS: Citalopram 20 MG Tab PO SCH (08:38)
[2020-12-27] MEDS: Potassium Chloride 20 MEQ Tab.ER PO SCH ×4 (08:38→19:21)
[2020-12-27] MEDS: Furosemide 20 MG Tab PO SCH ×2 (08:39→11:56)
[2020-12-27] MEDS: Docusate Sodium 100 MG Cap PO SCH ×2 (08:39→17:51)
[2020-12-27] MEDS: Albuterol/Ipratropium 4 GM Inhalation Spray INH SCH ×4 (08:40→19:20)
[2020-12-27] MEDS: Ferrous Sulfate 325 MG Tab PO SCH (08:40)
[2020-12-27] MEDS: Niacin 500 MG Tab PO SCH ×2 (08:41→17:50)
[2020-12-27] MEDS: Calcium Carbonate 750 MG Tab.Chew PO SCH (08:42)
[2020-12-27] MEDS: Acetaminophen 325 MG Tab PO SCH ×3 (08:43→17:52)
[2020-12-27] MEDS: Cyanocobalamin (Vitamin B12) 1,000 MCG Tab PO SCH (08:43)
[2020-12-27] MEDS: Cholecalciferol (Vitamin D3) 25 MCG Tab PO SCH (08:44)
[2020-12-27] MEDS: BUPROPION 300 MG PO SCH (19:21)
[2020-12-27] MEDS: Simvastatin 10 MG Tab PO SCH (19:21)
[2020-12-27] MEDS: LEVOTHYROXINE SODIUM 137 MCG PO SCH (19:21)
[2020-12-28] MEDS: Citalopram 20 MG Tab PO SCH (07:18)
[2020-12-28] MEDS: Omeprazole 20 MG Cap.CR PO SCH ×2 (07:18→17:36)
[2020-12-28] MEDS: Potassium Chloride 20 MEQ Tab.ER PO SCH ×4 (07:18→19:03)
[2020-12-28] MEDS: Fludrocortisone 0.1 MG Tab PO SCH ×2 (07:19→19:03)
[2020-12-28] MEDS: Furosemide 20 MG Tab PO SCH ×2 (07:19→11:50)
[2020-12-28] MEDS: Cholecalciferol (Vitamin D3) 25 MCG Tab PO SCH (07:20)
[2020-12-28] MEDS: Cyanocobalamin (Vitamin B12) 1,000 MCG Tab PO SCH (07:20)
[2020-12-28] MEDS: Acetaminophen 325 MG Tab PO SCH ×3 (07:20→17:37)
[2020-12-28] MEDS: Ferrous Sulfate 325 MG Tab PO SCH (07:21)
[2020-12-28] MEDS: Docusate Sodium 100 MG Cap PO SCH ×2 (07:21→17:36)
[2020-12-28] MEDS: Niacin 500 MG Tab PO SCH ×2 (07:21→17:36)
[2020-12-28] MEDS: Albuterol/Ipratropium 4 GM Inhalation Spray INH SCH ×4 (07:21→19:02)
[2020-12-28] MEDS: Calcium Carbonate 750 MG Tab.Chew PO SCH (07:22)
[2020-12-28] MEDS: LEVOTHYROXINE SODIUM 137 MCG PO SCH (19:03)
[2020-12-28] MEDS: BUPROPION 300 MG PO SCH (19:03)
[2020-12-28] MEDS: Simvastatin 10 MG Tab PO SCH (19:03)
[2020-12-28] MEDS: Menthol/Methyl Salicylate 85 GM Tube TOP PRN (19:05)
[2020-12-29] MEDS: Citalopram 20 MG Tab PO SCH (07:46)
[2020-12-29] MEDS: Potassium Chloride 20 MEQ Tab.ER PO SCH ×4 (07:46→19:25)
[2020-12-29] MEDS: Omeprazole 20 MG Cap.CR PO SCH ×2 (07:46→17:40)
[2020-12-29] MEDS: Fludrocortisone 0.1 MG Tab PO SCH ×2 (07:47→19:25)
[2020-12-29] MEDS: Furosemide 20 MG Tab PO SCH ×2 (07:47→11:37)
[2020-12-29] MEDS: Ferrous Sulfate 325 MG Tab PO SCH (07:48)
[2020-12-29] MEDS: Docusate Sodium 100 MG Cap PO SCH ×2 (07:48→17:41)
[2020-12-29] MEDS: Albuterol/Ipratropium 4 GM Inhalation Spray INH SCH ×4 (07:48→19:24)
[2020-12-29] MEDS: Calcium Carbonate 750 MG Tab.Chew PO SCH (07:49)
[2020-12-29] MEDS: Niacin 500 MG Tab PO SCH ×2 (07:49→17:41)
[2020-12-29] MEDS: Acetaminophen 325 MG Tab PO SCH ×3 (07:50→17:42)
[2020-12-29] MEDS: Cyanocobalamin (Vitamin B12) 1,000 MCG Tab PO SCH (07:51)
[2020-12-29] MEDS: Cholecalciferol (Vitamin D3) 25 MCG Tab PO SCH (07:51)
[2020-12-29] MEDS: Ibuprofen 600 MG Tab PO PRN (11:40)
[2020-12-29] MEDS: Simvastatin 10 MG Tab PO SCH (19:25)
[2020-12-29] MEDS: LEVOTHYROXINE SODIUM 137 MCG PO SCH (19:26)
[2020-12-29] MEDS: BUPROPION 300 MG PO SCH (19:26)
[2020-12-30] MEDS: Omeprazole 20 MG Cap.CR PO SCH ×2 (07:31→17:26)
[2020-12-30] MEDS: Furosemide 20 MG Tab PO SCH ×2 (07:32→11:52)
[2020-12-30] MEDS: Citalopram 20 MG Tab PO SCH (07:32)
[2020-12-30] MEDS: Potassium Chloride 20 MEQ Tab.ER PO SCH ×4 (07:32→19:25)
[2020-12-30] MEDS: Fludrocortisone 0.1 MG Tab PO SCH ×2 (07:32→19:25)
[2020-12-30] MEDS: Albuterol/Ipratropium 4 GM Inhalation Spray INH SCH ×4 (07:33→19:24)
[2020-12-30] MEDS: Niacin 500 MG Tab PO SCH ×2 (07:33→17:26)
[2020-12-30] MEDS: Cyanocobalamin (Vitamin B12) 1,000 MCG Tab PO SCH (07:33)
[2020-12-30] MEDS: Ferrous Sulfate 325 MG Tab PO SCH (07:33)
[2020-12-30] MEDS: Cholecalciferol (Vitamin D3) 25 MCG Tab PO SCH (07:33)
[2020-12-30] MEDS: Calcium Carbonate 750 MG Tab.Chew PO SCH (07:34)
[2020-12-30] MEDS: Acetaminophen 325 MG Tab PO SCH ×3 (07:34→17:27)
[2020-12-30] MEDS: Docusate Sodium 100 MG Cap PO SCH ×2 (07:34→17:26)
[2020-12-30] MEDS: BUPROPION 300 MG PO SCH (19:26)
[2020-12-30] MEDS: Menthol/Methyl Salicylate 85 GM Tube TOP PRN (19:26)
[2020-12-30] MEDS: Simvastatin 10 MG Tab PO SCH (19:26)
[2020-12-30] MEDS: LEVOTHYROXINE SODIUM 137 MCG PO SCH (19:26)
[2020-12-30] MEDS: Ibuprofen 600 MG Tab PO PRN (19:27)
[2020-12-31] MEDS: Albuterol/Ipratropium 4 GM Inhalation Spray INH SCH ×4 (07:28→19:28)
[2020-12-31] MEDS: Furosemide 20 MG Tab PO SCH ×2 (07:30→11:45)
[2020-12-31] MEDS: Citalopram 20 MG Tab PO SCH (07:30)
[2020-12-31] MEDS: Docusate Sodium 100 MG Cap PO SCH ×2 (07:30→17:35)
[2020-12-31] MEDS: Omeprazole 20 MG Cap.CR PO SCH ×2 (07:30→17:35)
[2020-12-31] MEDS: Potassium Chloride 20 MEQ Tab.ER PO SCH ×4 (07:30→19:28)
[2020-12-31] MEDS: Cholecalciferol (Vitamin D3) 25 MCG Tab PO SCH (07:31)
[2020-12-31] MEDS: Fludrocortisone 0.1 MG Tab PO SCH ×2 (07:31→19:28)
[2020-12-31] MEDS: Ferrous Sulfate 325 MG Tab PO SCH (07:32)
[2020-12-31] MEDS: Niacin 500 MG Tab PO SCH ×2 (07:32→17:35)
[2020-12-31] MEDS: Cyanocobalamin (Vitamin B12) 1,000 MCG Tab PO SCH (07:32)
[2020-12-31] MEDS: Calcium Carbonate 750 MG Tab.Chew PO SCH (07:32)
[2020-12-31] MEDS: Acetaminophen 325 MG Tab PO SCH ×3 (07:32→17:35)
[2020-12-31] MEDS: BUPROPION 300 MG PO SCH (19:29)
[2020-12-31] MEDS: Simvastatin 10 MG Tab PO SCH (19:29)
[2020-12-31] MEDS: LEVOTHYROXINE SODIUM 137 MCG PO SCH (19:29)
[2020-12-31] MEDS: Menthol/Methyl Salicylate 85 GM Tube TOP PRN (19:30)
[2020-12-31] MEDS: Ibuprofen 600 MG Tab PO PRN (19:36)
[2021-01-01] MEDS: Omeprazole 20 MG Cap.CR PO SCH ×2 (07:44→17:07)
[2021-01-01] MEDS: Citalopram 20 MG Tab PO SCH (07:44)
[2021-01-01] MEDS: Docusate Sodium 100 MG Cap PO SCH ×2 (07:44→17:07)
[2021-01-01] MEDS: Albuterol/Ipratropium 4 GM Inhalation Spray INH SCH ×4 (07:44→19:09)
[2021-01-01] MEDS: Ferrous Sulfate 325 MG Tab PO SCH (07:44)
[2021-01-01] MEDS: Potassium Chloride 20 MEQ Tab.ER PO SCH ×4 (07:45→19:11)
[2021-01-01] MEDS: Fludrocortisone 0.1 MG Tab PO SCH ×2 (07:45→19:11)
[2021-01-01] MEDS: Furosemide 20 MG Tab PO SCH ×2 (07:45→11:15)
[2021-01-01] MEDS: Calcium Carbonate 750 MG Tab.Chew PO SCH (07:46)
[2021-01-01] MEDS: Acetaminophen 325 MG Tab PO SCH ×3 (07:46→17:07)
[2021-01-01] MEDS: Niacin 500 MG Tab PO SCH ×2 (07:46→17:07)
[2021-01-01] MEDS: Ibuprofen 600 MG Tab PO PRN (07:47)
[2021-01-01] MEDS: Cyanocobalamin (Vitamin B12) 1,000 MCG Tab PO SCH (07:47)
[2021-01-01] MEDS: Cholecalciferol (Vitamin D3) 25 MCG Tab PO SCH (07:47)
[2021-01-01] MEDS: LEVOTHYROXINE SODIUM 137 MCG PO SCH (19:12)
[2021-01-01] MEDS: Simvastatin 10 MG Tab PO SCH (19:12)
[2021-01-01] MEDS: BUPROPION 300 MG PO SCH (19:12)
[2021-01-02] MEDS: Citalopram 20 MG Tab PO SCH (07:00)
[2021-01-02] MEDS: Albuterol/Ipratropium 4 GM Inhalation Spray INH SCH ×4 (07:00→19:09)
[2021-01-02] MEDS: Ferrous Sulfate 325 MG Tab PO SCH (07:00)
[2021-01-02] MEDS: Docusate Sodium 100 MG Cap PO SCH ×2 (07:00→17:06)
[2021-01-02] MEDS: Furosemide 20 MG Tab PO SCH ×2 (07:01→11:14)
[2021-01-02] MEDS: Niacin 500 MG Tab PO SCH ×2 (07:01→17:06)
[2021-01-02] MEDS: Potassium Chloride 20 MEQ Tab.ER PO SCH ×4 (07:01→19:17)
[2021-01-02] MEDS: Fludrocortisone 0.1 MG Tab PO SCH ×2 (07:01→19:10)
[2021-01-02] MEDS: Acetaminophen 325 MG Tab PO SCH ×3 (07:02→17:07)
[2021-01-02] MEDS: Calcium Carbonate 750 MG Tab.Chew PO SCH (07:02)
[2021-01-02] MEDS: Ibuprofen 600 MG Tab PO PRN (07:03)
[2021-01-02] MEDS: Cholecalciferol (Vitamin D3) 25 MCG Tab PO SCH (07:03)
[2021-01-02] MEDS: Cyanocobalamin (Vitamin B12) 1,000 MCG Tab PO SCH (07:03)
[2021-01-02] MEDS: LEVOTHYROXINE SODIUM 137 MCG PO SCH (19:11)
[2021-01-02] MEDS: Simvastatin 10 MG Tab PO SCH (19:11)
[2021-01-02] MEDS: BUPROPION 300 MG PO SCH (19:11)
[2021-01-03] MEDS: Albuterol/Ipratropium 4 GM Inhalation Spray INH SCH ×4 (07:26→19:39)
[2021-01-03] MEDS: Citalopram 20 MG Tab PO SCH (07:27)
[2021-01-03] MEDS: Potassium Chloride 20 MEQ Tab.ER PO SCH ×4 (07:27→19:40)
[2021-01-03] MEDS: Fludrocortisone 0.1 MG Tab PO SCH ×2 (07:27→19:40)
[2021-01-03] MEDS: Furosemide 20 MG Tab PO SCH ×2 (07:28→11:56)
[2021-01-03] MEDS: Niacin 500 MG Tab PO SCH ×2 (07:28→17:55)
[2021-01-03] MEDS: Docusate Sodium 100 MG Cap PO SCH ×2 (07:28→17:55)
[2021-01-03] MEDS: Cholecalciferol (Vitamin D3) 25 MCG Tab PO SCH (07:29)
[2021-01-03] MEDS: Cyanocobalamin (Vitamin B12) 1,000 MCG Tab PO SCH (07:29)
[2021-01-03] MEDS: Acetaminophen 325 MG Tab PO SCH ×3 (07:29→17:55)
[2021-01-03] MEDS: Ferrous Sulfate 325 MG Tab PO SCH (07:30)
[2021-01-03] MEDS: Calcium Carbonate 750 MG Tab.Chew PO SCH (07:30)
[2021-01-03] MEDS: LEVOTHYROXINE SODIUM 137 MCG PO SCH (19:40)
[2021-01-03] MEDS: Menthol/Methyl Salicylate 85 GM Tube TOP PRN (19:41)
[2021-01-03] MEDS: Simvastatin 10 MG Tab PO SCH (19:41)
[2021-01-03] MEDS: BUPROPION 300 MG PO SCH (19:41)
[2021-01-03] MEDS: Ibuprofen 600 MG Tab PO PRN (19:43)
[2021-01-04] MEDS: Albuterol/Ipratropium 4 GM Inhalation Spray INH SCH ×4 (07:04→19:21)
[2021-01-04] MEDS: Docusate Sodium 100 MG Cap PO SCH ×2 (07:05→17:10)
[2021-01-04] MEDS: Ferrous Sulfate 325 MG Tab PO SCH (07:05)
[2021-01-04] MEDS: Fludrocortisone 0.1 MG Tab PO SCH ×2 (07:05→19:22)
[2021-01-04] MEDS: Citalopram 20 MG Tab PO SCH (07:05)
[2021-01-04] MEDS: Niacin 500 MG Tab PO SCH ×2 (07:06→17:10)
[2021-01-04] MEDS: Potassium Chloride 20 MEQ Tab.ER PO SCH ×4 (07:06→19:22)
[2021-01-04] MEDS: Furosemide 20 MG Tab PO SCH ×2 (07:06→11:20)
[2021-01-04] MEDS: Calcium Carbonate 750 MG Tab.Chew PO SCH (07:07)
[2021-01-04] MEDS: Acetaminophen 325 MG Tab PO SCH ×3 (07:07→17:11)
[2021-01-04] MEDS: Cyanocobalamin (Vitamin B12) 1,000 MCG Tab PO SCH (07:08)
[2021-01-04] MEDS: Ibuprofen 600 MG Tab PO PRN ×2 (07:08→19:23)
[2021-01-04] MEDS: Cholecalciferol (Vitamin D3) 25 MCG Tab PO SCH (07:08)
[2021-01-04] MEDS: LEVOTHYROXINE SODIUM 137 MCG PO SCH (19:22)
[2021-01-04] MEDS: BUPROPION 300 MG PO SCH (19:23)
[2021-01-04] MEDS: Simvastatin 10 MG Tab PO SCH (19:23)
[2021-01-04] MEDS: Menthol/Methyl Salicylate 85 GM Tube TOP PRN (19:24)
[2021-01-05] MEDS: Fludrocortisone 0.1 MG Tab PO SCH ×2 (07:54→19:15)
[2021-01-05] MEDS: Citalopram 20 MG Tab PO SCH (07:54)
[2021-01-05] MEDS: Potassium Chloride 20 MEQ Tab.ER PO SCH ×4 (07:54→19:16)
[2021-01-05] MEDS: Furosemide 20 MG Tab PO SCH ×2 (07:55→12:09)
[2021-01-05] MEDS: Docusate Sodium 100 MG Cap PO SCH ×2 (07:55→17:33)
[2021-01-05] MEDS: Niacin 500 MG Tab PO SCH ×2 (07:56→17:34)
[2021-01-05] MEDS: Ferrous Sulfate 325 MG Tab PO SCH (07:56)
[2021-01-05] MEDS: Calcium Carbonate 750 MG Tab.Chew PO SCH (07:57)
[2021-01-05] MEDS: Acetaminophen 325 MG Tab PO SCH ×3 (07:57→17:34)
[2021-01-05] MEDS: Cyanocobalamin (Vitamin B12) 1,000 MCG Tab PO SCH (07:58)
[2021-01-05] MEDS: Cholecalciferol (Vitamin D3) 25 MCG Tab PO SCH (07:59)
[2021-01-05] MEDS: Albuterol/Ipratropium 4 GM Inhalation Spray INH SCH ×4 (08:00→19:14)
[2021-01-05] MEDS: Ibuprofen 600 MG Tab PO PRN (12:12)
[2021-01-05] MEDS: Menthol/Methyl Salicylate 85 GM Tube TOP PRN (12:22)
[2021-01-05] MEDS: BUPROPION 300 MG PO SCH (19:16)
[2021-01-05] MEDS: LEVOTHYROXINE SODIUM 137 MCG PO SCH (19:16)
[2021-01-05] MEDS: Simvastatin 10 MG Tab PO SCH (19:17)
[2021-01-06] MEDS: Potassium Chloride 20 MEQ Tab.ER PO SCH ×4 (07:45→19:22)
[2021-01-06] MEDS: Fludrocortisone 0.1 MG Tab PO SCH ×2 (07:45→19:22)
[2021-01-06] MEDS: Docusate Sodium 100 MG Cap PO SCH ×2 (07:46→17:36)
[2021-01-06] MEDS: Furosemide 20 MG Tab PO SCH ×2 (07:46→12:26)
[2021-01-06] MEDS: Citalopram 20 MG Tab PO SCH (07:46)
[2021-01-06] MEDS: Ferrous Sulfate 325 MG Tab PO SCH (07:47)
[2021-01-06] MEDS: Albuterol/Ipratropium 4 GM Inhalation Spray INH SCH ×4 (07:47→19:20)
[2021-01-06] MEDS: Calcium Carbonate 750 MG Tab.Chew PO SCH (07:48)
[2021-01-06] MEDS: Cholecalciferol (Vitamin D3) 25 MCG Tab PO SCH (07:50)
[2021-01-06] MEDS: Cyanocobalamin (Vitamin B12) 1,000 MCG Tab PO SCH (07:50)
[2021-01-06] MEDS: Acetaminophen 325 MG Tab PO SCH ×3 (07:50→17:37)
[2021-01-06] MEDS: Niacin 500 MG Tab PO SCH ×2 (07:51→17:36)
[2021-01-06] MEDS: Simvastatin 10 MG Tab PO SCH (19:23)
[2021-01-06] MEDS: BUPROPION 300 MG PO SCH (19:23)
[2021-01-06] MEDS: LEVOTHYROXINE SODIUM 137 MCG PO SCH (19:23)
[2021-01-06] MEDS: Menthol/Methyl Salicylate 85 GM Tube TOP PRN (19:24)
[2021-01-07] MEDS: Fludrocortisone 0.1 MG Tab PO SCH ×2 (07:37→19:24)
[2021-01-07] MEDS: Potassium Chloride 20 MEQ Tab.ER PO SCH ×4 (07:37→19:24)
[2021-01-07] MEDS: Docusate Sodium 100 MG Cap PO SCH ×2 (07:38→17:46)
[2021-01-07] MEDS: Citalopram 20 MG Tab PO SCH (07:38)
[2021-01-07] MEDS: Furosemide 20 MG Tab PO SCH ×2 (07:38→12:11)
[2021-01-07] MEDS: Cholecalciferol (Vitamin D3) 25 MCG Tab PO SCH (07:38)
[2021-01-07] MEDS: Acetaminophen 325 MG Tab PO SCH ×3 (07:39→17:44)
[2021-01-07] MEDS: Niacin 500 MG Tab PO SCH ×2 (07:39→17:44)
[2021-01-07] MEDS: Albuterol/Ipratropium 4 GM Inhalation Spray INH SCH ×4 (07:40→19:23)
[2021-01-07] MEDS: Calcium Carbonate 750 MG Tab.Chew PO SCH (07:40)
[2021-01-07] MEDS: Ferrous Sulfate 325 MG Tab PO SCH (07:40)
[2021-01-07] MEDS: Cyanocobalamin (Vitamin B12) 1,000 MCG Tab PO SCH (07:40)
[2021-01-07] MEDS: LEVOTHYROXINE SODIUM 137 MCG PO SCH (19:24)
[2021-01-07] MEDS: BUPROPION 300 MG PO SCH (19:25)
[2021-01-07] MEDS: Simvastatin 10 MG Tab PO SCH (19:25)
[2021-01-07] MEDS: Menthol/Methyl Salicylate 85 GM Tube TOP PRN (19:25)
[2021-01-07] MEDS: Ibuprofen 600 MG Tab PO PRN (19:26)
[2021-01-08] MEDS: Calcium Carbonate 750 MG Tab.Chew PO SCH (07:35)
[2021-01-08] MEDS: Citalopram 20 MG Tab PO SCH (07:36)
[2021-01-08] MEDS: Albuterol/Ipratropium 4 GM Inhalation Spray INH SCH ×4 (07:36→19:33)
[2021-01-08] MEDS: Docusate Sodium 100 MG Cap PO SCH ×2 (07:36→16:59)
[2021-01-08] MEDS: Ferrous Sulfate 325 MG Tab PO SCH (07:36)
[2021-01-08] MEDS: Fludrocortisone 0.1 MG Tab PO SCH ×2 (07:37→19:34)
[2021-01-08] MEDS: Niacin 500 MG Tab PO SCH ×2 (07:37→16:59)
[2021-01-08] MEDS: Potassium Chloride 20 MEQ Tab.ER PO SCH ×4 (07:37→19:34)
[2021-01-08] MEDS: Furosemide 20 MG Tab PO SCH ×2 (07:37→11:19)
[2021-01-08] MEDS: Ibuprofen 600 MG Tab PO PRN ×2 (07:38→19:35)
[2021-01-08] MEDS: Cyanocobalamin (Vitamin B12) 1,000 MCG Tab PO SCH (07:38)
[2021-01-08] MEDS: Cholecalciferol (Vitamin D3) 25 MCG Tab PO SCH (07:38)
[2021-01-08] MEDS: Acetaminophen 325 MG Tab PO SCH ×3 (07:38→16:59)
[2021-01-08] MEDS: BUPROPION 300 MG PO SCH (19:35)
[2021-01-08] MEDS: LEVOTHYROXINE SODIUM 137 MCG PO SCH (19:35)
[2021-01-08] MEDS: Simvastatin 10 MG Tab PO SCH (19:35)
[2021-01-08] MEDS: Menthol/Methyl Salicylate 85 GM Tube TOP PRN (19:36)
[2021-01-09] MEDS: Ibuprofen 600 MG Tab PO PRN ×2 (04:07→11:36)
[2021-01-09] MEDS: Citalopram 20 MG Tab PO SCH (08:15)
[2021-01-09] MEDS: Potassium Chloride 20 MEQ Tab.ER PO SCH ×4 (08:16→19:28)
[2021-01-09] MEDS: Fludrocortisone 0.1 MG Tab PO SCH ×2 (08:16→19:28)
[2021-01-09] MEDS: Furosemide 20 MG Tab PO SCH ×2 (08:16→11:35)
[2021-01-09] MEDS: Niacin 500 MG Tab PO SCH ×2 (08:16→17:32)
[2021-01-09] MEDS: Docusate Sodium 100 MG Cap PO SCH ×2 (08:17→17:32)
[2021-01-09] MEDS: Ferrous Sulfate 325 MG Tab PO SCH (08:17)
[2021-01-09] MEDS: Albuterol/Ipratropium 4 GM Inhalation Spray INH SCH ×4 (08:17→19:27)
[2021-01-09] MEDS: Calcium Carbonate 750 MG Tab.Chew PO SCH (08:18)
[2021-01-09] MEDS: Acetaminophen 325 MG Tab PO SCH ×3 (08:18→17:33)
[2021-01-09] MEDS: Cholecalciferol (Vitamin D3) 25 MCG Tab PO SCH (08:19)
[2021-01-09] MEDS: Cyanocobalamin (Vitamin B12) 1,000 MCG Tab PO SCH (08:19)
[2021-01-09] MEDS: BUPROPION 300 MG PO SCH (19:29)
[2021-01-09] MEDS: Simvastatin 10 MG Tab PO SCH (19:29)
[2021-01-09] MEDS: LEVOTHYROXINE SODIUM 137 MCG PO SCH (19:29)
[2021-01-09] MEDS: Menthol/Methyl Salicylate 85 GM Tube TOP PRN (19:30)
[2021-01-10] MEDS: Acetaminophen 325 MG Tab PO PRN (00:47)
[2021-01-10] MEDS: Albuterol/Ipratropium 4 GM Inhalation Spray INH SCH ×4 (07:25→19:11)
[2021-01-10] MEDS: Furosemide 20 MG Tab PO SCH ×2 (07:26→11:02)
[2021-01-10] MEDS: Fludrocortisone 0.1 MG Tab PO SCH ×2 (07:26→19:13)
[2021-01-10] MEDS: Citalopram 20 MG Tab PO SCH (07:26)
[2021-01-10] MEDS: Potassium Chloride 20 MEQ Tab.ER PO SCH ×4 (07:26→19:13)
[2021-01-10] MEDS: Ferrous Sulfate 325 MG Tab PO SCH (07:27)
[2021-01-10] MEDS: Calcium Carbonate 750 MG Tab.Chew PO SCH (07:27)
[2021-01-10] MEDS: Docusate Sodium 100 MG Cap PO SCH ×2 (07:27→17:37)
[2021-01-10] MEDS: Niacin 500 MG Tab PO SCH ×2 (07:28→17:36)
[2021-01-10] MEDS: Cyanocobalamin (Vitamin B12) 1,000 MCG Tab PO SCH (07:29)
[2021-01-10] MEDS: Cholecalciferol (Vitamin D3) 25 MCG Tab PO SCH (07:29)
[2021-01-10] MEDS: Acetaminophen 325 MG Tab PO SCH ×3 (07:29→17:36)
[2021-01-10] MEDS: BUPROPION 300 MG PO SCH (19:14)
[2021-01-10] MEDS: LEVOTHYROXINE SODIUM 137 MCG PO SCH (19:14)
[2021-01-10] MEDS: Simvastatin 10 MG Tab PO SCH (19:14)
[2021-01-10] MEDS: Menthol/Methyl Salicylate 85 GM Tube TOP PRN (19:15)
[2021-01-11] MEDS: Citalopram 20 MG Tab PO SCH (08:14)
[2021-01-11] MEDS: Potassium Chloride 20 MEQ Tab.ER PO SCH ×4 (08:14→19:08)
[2021-01-11] MEDS: Furosemide 20 MG Tab PO SCH ×2 (08:14→11:32)
[2021-01-11] MEDS: Fludrocortisone 0.1 MG Tab PO SCH ×2 (08:14→19:08)
[2021-01-11] MEDS: Niacin 500 MG Tab PO SCH ×2 (08:15→17:10)
[2021-01-11] MEDS: Acetaminophen 325 MG Tab PO SCH ×3 (08:16→17:10)
[2021-01-11] MEDS: Calcium Carbonate 750 MG Tab.Chew PO SCH (08:16)
[2021-01-11] MEDS: Cholecalciferol (Vitamin D3) 25 MCG Tab PO SCH (08:17)
[2021-01-11] MEDS: Cyanocobalamin (Vitamin B12) 1,000 MCG Tab PO SCH (08:17)
[2021-01-11] MEDS: Docusate Sodium 100 MG Cap PO SCH ×2 (08:17→17:10)
[2021-01-11] MEDS: Albuterol/Ipratropium 4 GM Inhalation Spray INH SCH ×4 (08:18→19:06)
[2021-01-11] MEDS: Ferrous Sulfate 325 MG Tab PO SCH (08:19)
[2021-01-11] MEDS: Ibuprofen 600 MG Tab PO PRN (11:33)
[2021-01-11] MEDS: Simvastatin 10 MG Tab PO SCH (19:09)
[2021-01-11] MEDS: BUPROPION 300 MG PO SCH (19:09)
[2021-01-11] MEDS: LEVOTHYROXINE SODIUM 137 MCG PO SCH (19:09)
[2021-01-11] MEDS: Menthol/Methyl Salicylate 85 GM Tube TOP PRN (19:10)
[2021-01-12] MEDS: Fludrocortisone 0.1 MG Tab PO SCH ×2 (08:12→19:17)
[2021-01-12] MEDS: Furosemide 20 MG Tab PO SCH ×2 (08:12→12:10)
[2021-01-12] MEDS: Citalopram 20 MG Tab PO SCH (08:12)
[2021-01-12] MEDS: Docusate Sodium 100 MG Cap PO SCH ×2 (08:13→17:46)
[2021-01-12] MEDS: Potassium Chloride 20 MEQ Tab.ER PO SCH ×4 (08:13→19:17)
[2021-01-12] MEDS: Albuterol/Ipratropium 4 GM Inhalation Spray INH SCH ×2 (08:14→12:09)
[2021-01-12] MEDS: Ferrous Sulfate 325 MG Tab PO SCH (08:14)
[2021-01-12] MEDS: Acetaminophen 325 MG Tab PO SCH ×3 (08:15→17:47)
[2021-01-12] MEDS: Calcium Carbonate 750 MG Tab.Chew PO SCH (08:15)
[2021-01-12] MEDS: Niacin 500 MG Tab PO SCH ×2 (08:15→17:47)
[2021-01-12] MEDS: Cyanocobalamin (Vitamin B12) 1,000 MCG Tab PO SCH (08:16)
[2021-01-12] MEDS: Cholecalciferol (Vitamin D3) 25 MCG Tab PO SCH (08:17)
--- NOTE | 2021-01-12 15:57 | PCM.SN.2 ---
- Free Text/Narrative Note: Patient will return back to previous DuoNeb nebulizer treatments rather than Combivent since these are more effective and tolerated better by the patient. Note that the patient has already received her 2 COVID-19 immunizations.
[2021-01-12] MEDS ORDERED: Albuterol/Ipratropium 3.0-0.5 MG/3 ML Neb Soln NEB PRN (18:00)
[2021-01-12] MEDS: Albuterol/Ipratropium 3.0-0.5 MG/3 ML Neb Soln NEB SCH (19:16)
[2021-01-12] MEDS: BUPROPION 300 MG PO SCH (19:17)
[2021-01-12] MEDS: Simvastatin 10 MG Tab PO SCH (19:17)
[2021-01-12] MEDS: LEVOTHYROXINE SODIUM 137 MCG PO SCH (19:17)
[2021-01-13] MEDS: Docusate Sodium 100 MG Cap PO SCH ×2 (07:08→17:11)
[2021-01-13] MEDS: Citalopram 20 MG Tab PO SCH (07:08)
[2021-01-13] MEDS: Albuterol/Ipratropium 3.0-0.5 MG/3 ML Neb Soln NEB SCH ×4 (07:08→19:09)
[2021-01-13] MEDS: Fludrocortisone 0.1 MG Tab PO SCH ×2 (07:09→19:09)
[2021-01-13] MEDS: Furosemide 20 MG Tab PO SCH ×2 (07:09→11:53)
[2021-01-13] MEDS: Ferrous Sulfate 325 MG Tab PO SCH (07:09)
[2021-01-13] MEDS: Potassium Chloride 20 MEQ Tab.ER PO SCH ×4 (07:09→19:09)
[2021-01-13] MEDS: Calcium Carbonate 750 MG Tab.Chew PO SCH (07:10)
[2021-01-13] MEDS: Acetaminophen 325 MG Tab PO SCH ×3 (07:10→17:12)
[2021-01-13] MEDS: Niacin 500 MG Tab PO SCH ×2 (07:10→17:11)
[2021-01-13] MEDS: Cholecalciferol (Vitamin D3) 25 MCG Tab PO SCH (07:11)
[2021-01-13] MEDS: Cyanocobalamin (Vitamin B12) 1,000 MCG Tab PO SCH (07:11)
[2021-01-13] MEDS: Ibuprofen 600 MG Tab PO PRN (07:11)
[2021-01-13] MEDS: LEVOTHYROXINE SODIUM 137 MCG PO SCH (19:09)
[2021-01-13] MEDS: BUPROPION 300 MG PO SCH (19:09)
[2021-01-13] MEDS: Simvastatin 10 MG Tab PO SCH (19:10)
[2021-01-14] MEDS: Citalopram 20 MG Tab PO SCH (07:25)
[2021-01-14] MEDS: Potassium Chloride 20 MEQ Tab.ER PO SCH ×4 (07:25→19:25)
[2021-01-14] MEDS: Fludrocortisone 0.1 MG Tab PO SCH ×2 (07:25→19:25)
[2021-01-14] MEDS: Furosemide 20 MG Tab PO SCH ×2 (07:26→11:58)
[2021-01-14] MEDS: Acetaminophen 325 MG Tab PO SCH ×3 (07:26→17:45)
[2021-01-14] MEDS: Ferrous Sulfate 325 MG Tab PO SCH (07:27)
[2021-01-14] MEDS: Docusate Sodium 100 MG Cap PO SCH ×2 (07:27→17:48)
[2021-01-14] MEDS: Calcium Carbonate 750 MG Tab.Chew PO SCH (07:27)
[2021-01-14] MEDS: Niacin 500 MG Tab PO SCH ×2 (07:27→17:45)
[2021-01-14] MEDS: Albuterol/Ipratropium 3.0-0.5 MG/3 ML Neb Soln NEB SCH ×4 (07:29→19:23)
[2021-01-14] MEDS: Cholecalciferol (Vitamin D3) 25 MCG Tab PO SCH (07:29)
[2021-01-14] MEDS: Cyanocobalamin (Vitamin B12) 1,000 MCG Tab PO SCH (07:29)
[2021-01-14] MEDS: LEVOTHYROXINE SODIUM 137 MCG PO SCH (19:25)
[2021-01-14] MEDS: Simvastatin 10 MG Tab PO SCH (19:26)
[2021-01-14] MEDS: BUPROPION 300 MG PO SCH (19:26)
[2021-01-14] MEDS: Menthol/Methyl Salicylate 85 GM Tube TOP PRN (19:27)
[2021-01-15] MEDS: Fludrocortisone 0.1 MG Tab PO SCH ×2 (07:35→19:17)
[2021-01-15] MEDS: Citalopram 20 MG Tab PO SCH (07:35)
[2021-01-15] MEDS: Potassium Chloride 20 MEQ Tab.ER PO SCH ×4 (07:36→19:17)
[2021-01-15] MEDS: Furosemide 20 MG Tab PO SCH ×2 (07:36→12:03)
[2021-01-15] MEDS: Niacin 500 MG Tab PO SCH ×2 (07:36→17:11)
[2021-01-15] MEDS: Calcium Carbonate 750 MG Tab.Chew PO SCH (07:37)
[2021-01-15] MEDS: Acetaminophen 325 MG Tab PO SCH ×3 (07:38→17:11)
[2021-01-15] MEDS: Cyanocobalamin (Vitamin B12) 1,000 MCG Tab PO SCH (07:38)
[2021-01-15] MEDS: Cholecalciferol (Vitamin D3) 25 MCG Tab PO SCH (07:39)
[2021-01-15] MEDS: Docusate Sodium 100 MG Cap PO SCH ×2 (07:39→17:11)
[2021-01-15] MEDS: Albuterol/Ipratropium 3.0-0.5 MG/3 ML Neb Soln NEB SCH ×4 (07:39→19:14)
[2021-01-15] MEDS: Ferrous Sulfate 325 MG Tab PO SCH (07:40)
[2021-01-15] MEDS: LEVOTHYROXINE SODIUM 137 MCG PO SCH (19:17)
[2021-01-15] MEDS: Simvastatin 10 MG Tab PO SCH (19:18)
[2021-01-15] MEDS: BUPROPION 300 MG PO SCH (19:18)
[2021-01-15] MEDS: Menthol/Methyl Salicylate 85 GM Tube TOP PRN (19:19)
[2021-01-15] MEDS: Acetaminophen 325 MG Tab PO PRN (23:13)
[2021-01-16] MEDS: Citalopram 20 MG Tab PO SCH (07:13)
[2021-01-16] MEDS: Albuterol/Ipratropium 3.0-0.5 MG/3 ML Neb Soln NEB SCH ×4 (07:13→19:21)
[2021-01-16] MEDS: Fludrocortisone 0.1 MG Tab PO SCH ×2 (07:14→19:23)
[2021-01-16] MEDS: Potassium Chloride 20 MEQ Tab.ER PO SCH ×4 (07:14→19:24)
[2021-01-16] MEDS: Ferrous Sulfate 325 MG Tab PO SCH (07:14)
[2021-01-16] MEDS: Docusate Sodium 100 MG Cap PO SCH ×2 (07:14→17:13)
[2021-01-16] MEDS: Furosemide 20 MG Tab PO SCH ×2 (07:15→11:23)
[2021-01-16] MEDS: Niacin 500 MG Tab PO SCH ×2 (07:15→17:13)
[2021-01-16] MEDS: Calcium Carbonate 750 MG Tab.Chew PO SCH (07:15)
[2021-01-16] MEDS: Acetaminophen 325 MG Tab PO SCH ×3 (07:16→17:14)
[2021-01-16] MEDS: Ibuprofen 600 MG Tab PO PRN (07:17)
[2021-01-16] MEDS: Cyanocobalamin (Vitamin B12) 1,000 MCG Tab PO SCH (07:53)
[2021-01-16] MEDS: Cholecalciferol (Vitamin D3) 25 MCG Tab PO SCH (07:54)
[2021-01-16] MEDS: LEVOTHYROXINE SODIUM 137 MCG PO SCH (19:23)
[2021-01-16] MEDS: Simvastatin 10 MG Tab PO SCH (19:23)
[2021-01-16] MEDS: BUPROPION 300 MG PO SCH (19:23)
[2021-01-16] MEDS: Menthol/Methyl Salicylate 85 GM Tube TOP PRN (19:31)
[2021-01-17] MEDS: Fludrocortisone 0.1 MG Tab PO SCH ×2 (07:48→19:20)
[2021-01-17] MEDS: Potassium Chloride 20 MEQ Tab.ER PO SCH ×4 (07:48→19:20)
[2021-01-17] MEDS: Docusate Sodium 100 MG Cap PO SCH ×2 (07:48→17:40)
[2021-01-17] MEDS: Citalopram 20 MG Tab PO SCH (07:48)
[2021-01-17] MEDS: Furosemide 20 MG Tab PO SCH ×2 (07:48→12:03)
[2021-01-17] MEDS: Ferrous Sulfate 325 MG Tab PO SCH (07:49)
[2021-01-17] MEDS: Albuterol/Ipratropium 3.0-0.5 MG/3 ML Neb Soln NEB SCH ×4 (07:49→19:19)
[2021-01-17] MEDS: Calcium Carbonate 750 MG Tab.Chew PO SCH (07:50)
[2021-01-17] MEDS: Acetaminophen 325 MG Tab PO SCH ×3 (07:50→17:40)
[2021-01-17] MEDS: Niacin 500 MG Tab PO SCH ×2 (07:50→17:38)
[2021-01-17] MEDS: Cyanocobalamin (Vitamin B12) 1,000 MCG Tab PO SCH (07:53)
[2021-01-17] MEDS: Cholecalciferol (Vitamin D3) 25 MCG Tab PO SCH (07:53)
[2021-01-17] MEDS: LEVOTHYROXINE SODIUM 137 MCG PO SCH (19:20)
[2021-01-17] MEDS: BUPROPION 300 MG PO SCH (19:20)
[2021-01-17] MEDS: Simvastatin 10 MG Tab PO SCH (19:20)
[2021-01-18] MEDS: Potassium Chloride 20 MEQ Tab.ER PO SCH ×4 (08:01→19:11)
[2021-01-18] MEDS: Fludrocortisone 0.1 MG Tab PO SCH ×2 (08:02→19:11)
[2021-01-18] MEDS: Furosemide 20 MG Tab PO SCH ×2 (08:02→11:55)
[2021-01-18] MEDS: Citalopram 20 MG Tab PO SCH (08:02)
[2021-01-18] MEDS: Docusate Sodium 100 MG Cap PO SCH ×2 (08:03→17:18)
[2021-01-18] MEDS: Ferrous Sulfate 325 MG Tab PO SCH (08:03)
[2021-01-18] MEDS: Cholecalciferol (Vitamin D3) 25 MCG Tab PO SCH (08:04)
[2021-01-18] MEDS: Albuterol/Ipratropium 3.0-0.5 MG/3 ML Neb Soln NEB SCH ×4 (08:04→19:12)
[2021-01-18] MEDS: Niacin 500 MG Tab PO SCH ×2 (08:05→17:18)
[2021-01-18] MEDS: Calcium Carbonate 750 MG Tab.Chew PO SCH (08:05)
[2021-01-18] MEDS: Cyanocobalamin (Vitamin B12) 1,000 MCG Tab PO SCH (08:05)
[2021-01-18] MEDS: Acetaminophen 325 MG Tab PO SCH ×3 (08:08→17:19)
[2021-01-18] MEDS: BUPROPION 300 MG PO SCH (19:11)
[2021-01-18] MEDS: Simvastatin 10 MG Tab PO SCH (19:11)
[2021-01-18] MEDS: LEVOTHYROXINE SODIUM 137 MCG PO SCH (19:11)
[2021-01-19] MEDS: Citalopram 20 MG Tab PO SCH (08:25)
[2021-01-19] MEDS: Potassium Chloride 20 MEQ Tab.ER PO SCH ×4 (08:25→19:36)
[2021-01-19] MEDS: Docusate Sodium 100 MG Cap PO SCH ×2 (08:26→17:59)
[2021-01-19] MEDS: Furosemide 20 MG Tab PO SCH ×2 (08:26→11:40)
[2021-01-19] MEDS: Fludrocortisone 0.1 MG Tab PO SCH ×2 (08:26→19:35)
[2021-01-19] MEDS: Niacin 500 MG Tab PO SCH ×2 (08:27→17:59)
[2021-01-19] MEDS: Ferrous Sulfate 325 MG Tab PO SCH (08:27)
[2021-01-19] MEDS: Calcium Carbonate 750 MG Tab.Chew PO SCH (08:28)
[2021-01-19] MEDS: Acetaminophen 325 MG Tab PO SCH ×3 (08:28→17:59)
[2021-01-19] MEDS: Cyanocobalamin (Vitamin B12) 1,000 MCG Tab PO SCH (08:29)
[2021-01-19] MEDS: Cholecalciferol (Vitamin D3) 25 MCG Tab PO SCH (08:29)
[2021-01-19] MEDS: Albuterol/Ipratropium 3.0-0.5 MG/3 ML Neb Soln NEB SCH ×4 (08:30→19:33)
[2021-01-19] MEDS: Simvastatin 10 MG Tab PO SCH (19:36)
[2021-01-19] MEDS: BUPROPION 300 MG PO SCH (19:36)
[2021-01-19] MEDS: LEVOTHYROXINE SODIUM 137 MCG PO SCH (19:36)
[2021-01-19] MEDS: Menthol/Methyl Salicylate 85 GM Tube TOP PRN (19:37)
[2021-01-20] MEDS: Albuterol/Ipratropium 3.0-0.5 MG/3 ML Neb Soln NEB SCH ×4 (07:15→19:27)
[2021-01-20] MEDS: Citalopram 20 MG Tab PO SCH (07:16)
[2021-01-20] MEDS: Furosemide 20 MG Tab PO SCH ×2 (07:16→11:26)
[2021-01-20] MEDS: Potassium Chloride 20 MEQ Tab.ER PO SCH ×4 (07:16→19:29)
[2021-01-20] MEDS: Fludrocortisone 0.1 MG Tab PO SCH ×2 (07:16→19:29)
[2021-01-20] MEDS: Cholecalciferol (Vitamin D3) 25 MCG Tab PO SCH (07:17)
[2021-01-20] MEDS: Acetaminophen 325 MG Tab PO SCH ×3 (07:17→17:28)
[2021-01-20] MEDS: Cyanocobalamin (Vitamin B12) 1,000 MCG Tab PO SCH (07:17)
[2021-01-20] MEDS: Niacin 500 MG Tab PO SCH ×2 (07:18→17:28)
[2021-01-20] MEDS: Ferrous Sulfate 325 MG Tab PO SCH (07:18)
[2021-01-20] MEDS: Docusate Sodium 100 MG Cap PO SCH ×2 (07:18→17:28)
[2021-01-20] MEDS: Calcium Carbonate 750 MG Tab.Chew PO SCH (07:19)
[2021-01-20] MEDS: Bisacodyl 5 MG Tab PO PRN (09:21)
[2021-01-20] MEDS: LEVOTHYROXINE SODIUM 137 MCG PO SCH (19:30)
[2021-01-20] MEDS: BUPROPION 300 MG PO SCH (19:30)
[2021-01-20] MEDS: Menthol/Methyl Salicylate 85 GM Tube TOP PRN (19:30)
[2021-01-20] MEDS: Simvastatin 10 MG Tab PO SCH (19:30)
[2021-01-20] MEDS: Ibuprofen 600 MG Tab PO PRN (19:31)
[2021-01-21] MEDS: Potassium Chloride 20 MEQ Tab.ER PO SCH ×4 (07:36→19:28)
[2021-01-21] MEDS: Citalopram 20 MG Tab PO SCH (07:37)
[2021-01-21] MEDS: Fludrocortisone 0.1 MG Tab PO SCH ×2 (07:37→19:28)
[2021-01-21] MEDS: Furosemide 20 MG Tab PO SCH ×2 (07:38→11:12)
[2021-01-21] MEDS: Docusate Sodium 100 MG Cap PO SCH ×2 (07:38→17:52)
[2021-01-21] MEDS: Ferrous Sulfate 325 MG Tab PO SCH (07:38)
[2021-01-21] MEDS: Cholecalciferol (Vitamin D3) 25 MCG Tab PO SCH (07:38)
[2021-01-21] MEDS: Niacin 500 MG Tab PO SCH ×2 (07:39→17:52)
[2021-01-21] MEDS: Calcium Carbonate 750 MG Tab.Chew PO SCH (07:39)
[2021-01-21] MEDS: Cyanocobalamin (Vitamin B12) 1,000 MCG Tab PO SCH (07:39)
[2021-01-21] MEDS: Albuterol/Ipratropium 3.0-0.5 MG/3 ML Neb Soln NEB SCH ×4 (07:40→19:27)
[2021-01-21] MEDS: Acetaminophen 325 MG Tab PO SCH ×3 (07:40→17:52)
[2021-01-21] MEDS: LEVOTHYROXINE SODIUM 137 MCG PO SCH (19:28)
[2021-01-21] MEDS: Simvastatin 10 MG Tab PO SCH (19:28)
[2021-01-21] MEDS: BUPROPION 300 MG PO SCH (19:28)
[2021-01-21] MEDS: Menthol/Methyl Salicylate 85 GM Tube TOP PRN (19:29)
[2021-01-21] MEDS: Ibuprofen 600 MG Tab PO PRN (19:29)
[2021-01-22] MEDS: Ibuprofen 600 MG Tab PO PRN ×2 (07:36→19:10)
[2021-01-22] MEDS: Albuterol/Ipratropium 3.0-0.5 MG/3 ML Neb Soln NEB SCH ×4 (07:36→19:07)
[2021-01-22] MEDS: Docusate Sodium 100 MG Cap PO SCH ×2 (07:38→17:19)
[2021-01-22] MEDS: Ferrous Sulfate 325 MG Tab PO SCH (07:38)
[2021-01-22] MEDS: Citalopram 20 MG Tab PO SCH (07:38)
[2021-01-22] MEDS: Fludrocortisone 0.1 MG Tab PO SCH ×2 (07:39→19:05)
[2021-01-22] MEDS: Furosemide 20 MG Tab PO SCH ×2 (07:39→11:15)
[2021-01-22] MEDS: Potassium Chloride 20 MEQ Tab.ER PO SCH ×4 (07:39→19:06)
[2021-01-22] MEDS: Niacin 500 MG Tab PO SCH ×2 (07:40→17:20)
[2021-01-22] MEDS: Acetaminophen 325 MG Tab PO SCH ×3 (07:40→17:20)
[2021-01-22] MEDS: Calcium Carbonate 750 MG Tab.Chew PO SCH (07:40)
[2021-01-22] MEDS: Cyanocobalamin (Vitamin B12) 1,000 MCG Tab PO SCH (07:41)
[2021-01-22] MEDS: Cholecalciferol (Vitamin D3) 25 MCG Tab PO SCH (07:41)
[2021-01-22] MEDS: Simvastatin 10 MG Tab PO SCH (19:06)
[2021-01-22] MEDS: BUPROPION 300 MG PO SCH (19:06)
[2021-01-22] MEDS: LEVOTHYROXINE SODIUM 137 MCG PO SCH (19:06)
[2021-01-23] MEDS: Docusate Sodium 100 MG Cap PO SCH ×2 (07:30→17:13)
[2021-01-23] MEDS: Citalopram 20 MG Tab PO SCH (07:30)
[2021-01-23] MEDS: Potassium Chloride 20 MEQ Tab.ER PO SCH ×4 (07:31→19:17)
[2021-01-23] MEDS: Fludrocortisone 0.1 MG Tab PO SCH ×2 (07:31→19:18)
[2021-01-23] MEDS: Ferrous Sulfate 325 MG Tab PO SCH (07:31)
[2021-01-23] MEDS: Albuterol/Ipratropium 3.0-0.5 MG/3 ML Neb Soln NEB SCH ×4 (07:31→19:18)
[2021-01-23] MEDS: Furosemide 20 MG Tab PO SCH ×2 (07:32→11:25)
[2021-01-23] MEDS: Niacin 500 MG Tab PO SCH ×2 (07:32→17:14)
[2021-01-23] MEDS: Calcium Carbonate 750 MG Tab.Chew PO SCH (07:32)
[2021-01-23] MEDS: Cholecalciferol (Vitamin D3) 25 MCG Tab PO SCH (07:33)
[2021-01-23] MEDS: Acetaminophen 325 MG Tab PO SCH ×3 (07:33→17:14)
[2021-01-23] MEDS: Cyanocobalamin (Vitamin B12) 1,000 MCG Tab PO SCH (07:33)
[2021-01-23] MEDS: Ibuprofen 600 MG Tab PO PRN (11:25)
[2021-01-23] MEDS: Simvastatin 10 MG Tab PO SCH (19:18)
[2021-01-23] MEDS: BUPROPION 300 MG PO SCH (19:18)
[2021-01-23] MEDS: LEVOTHYROXINE SODIUM 137 MCG PO SCH (19:18)
[2021-01-23] MEDS: Menthol/Methyl Salicylate 85 GM Tube TOP PRN (19:21)
[2021-01-24] MEDS: Fludrocortisone 0.1 MG Tab PO SCH ×2 (07:33→19:11)
[2021-01-24] MEDS: Citalopram 20 MG Tab PO SCH (07:33)
[2021-01-24] MEDS: Potassium Chloride 20 MEQ Tab.ER PO SCH ×4 (07:33→19:11)
[2021-01-24] MEDS: Furosemide 20 MG Tab PO SCH ×2 (07:33→11:37)
[2021-01-24] MEDS: Docusate Sodium 100 MG Cap PO SCH ×2 (07:34→17:40)
[2021-01-24] MEDS: Niacin 500 MG Tab PO SCH ×2 (07:35→17:39)
[2021-01-24] MEDS: Ferrous Sulfate 325 MG Tab PO SCH (07:35)
[2021-01-24] MEDS: Albuterol/Ipratropium 3.0-0.5 MG/3 ML Neb Soln NEB SCH ×4 (07:35→19:20)
[2021-01-24] MEDS: Calcium Carbonate 750 MG Tab.Chew PO SCH (07:36)
[2021-01-24] MEDS: Cyanocobalamin (Vitamin B12) 1,000 MCG Tab PO SCH (07:37)
[2021-01-24] MEDS: Acetaminophen 325 MG Tab PO SCH ×3 (07:37→17:39)
[2021-01-24] MEDS: Cholecalciferol (Vitamin D3) 25 MCG Tab PO SCH (07:38)
[2021-01-24] MEDS: Simvastatin 10 MG Tab PO SCH (19:12)
[2021-01-24] MEDS: BUPROPION 300 MG PO SCH (19:12)
[2021-01-24] MEDS: LEVOTHYROXINE SODIUM 137 MCG PO SCH (19:12)
[2021-01-25] MEDS: Cholecalciferol (Vitamin D3) 25 MCG Tab PO SCH (07:53)
[2021-01-25] MEDS: Niacin 500 MG Tab PO SCH ×2 (07:53→17:35)
[2021-01-25] MEDS: Docusate Sodium 100 MG Cap PO SCH ×2 (07:53→17:35)
[2021-01-25] MEDS: Calcium Carbonate 750 MG Tab.Chew PO SCH (07:53)
[2021-01-25] MEDS: Acetaminophen 325 MG Tab PO SCH ×3 (07:54→17:35)
[2021-01-25] MEDS: Cyanocobalamin (Vitamin B12) 1,000 MCG Tab PO SCH (07:54)
[2021-01-25] MEDS: Citalopram 20 MG Tab PO SCH (07:55)
[2021-01-25] MEDS: Ferrous Sulfate 325 MG Tab PO SCH (07:55)
[2021-01-25] MEDS: Potassium Chloride 20 MEQ Tab.ER PO SCH ×4 (07:55→19:25)
[2021-01-25] MEDS: Furosemide 20 MG Tab PO SCH ×2 (07:56→11:26)
[2021-01-25] MEDS: Fludrocortisone 0.1 MG Tab PO SCH ×2 (07:56→19:25)
[2021-01-25] MEDS: Albuterol/Ipratropium 3.0-0.5 MG/3 ML Neb Soln NEB SCH ×4 (07:57→19:23)
[2021-01-25] MEDS: LEVOTHYROXINE SODIUM 137 MCG PO SCH (19:26)
[2021-01-25] MEDS: Simvastatin 10 MG Tab PO SCH (19:26)
[2021-01-25] MEDS: BUPROPION 300 MG PO SCH (19:26)
[2021-01-25] MEDS: Menthol/Methyl Salicylate 85 GM Tube TOP PRN (19:27)
[2021-01-26] MEDS: Acetaminophen 325 MG Tab PO PRN (03:47)
[2021-01-26] MEDS: Fludrocortisone 0.1 MG Tab PO SCH ×2 (08:00→19:31)
[2021-01-26] MEDS: Furosemide 20 MG Tab PO SCH ×2 (08:00→12:16)
[2021-01-26] MEDS: Citalopram 20 MG Tab PO SCH (08:00)
[2021-01-26] MEDS: Potassium Chloride 20 MEQ Tab.ER PO SCH ×4 (08:00→19:31)
[2021-01-26] MEDS: Albuterol/Ipratropium 3.0-0.5 MG/3 ML Neb Soln NEB SCH ×4 (08:01→19:28)
[2021-01-26] MEDS: Docusate Sodium 100 MG Cap PO SCH ×2 (08:01→17:52)
[2021-01-26] MEDS: Ferrous Sulfate 325 MG Tab PO SCH (08:02)
[2021-01-26] MEDS: Niacin 500 MG Tab PO SCH ×2 (08:02→17:53)
[2021-01-26] MEDS: Acetaminophen 325 MG Tab PO SCH ×3 (08:06→17:53)
[2021-01-26] MEDS: Calcium Carbonate 750 MG Tab.Chew PO SCH (08:06)
[2021-01-26] MEDS: Cholecalciferol (Vitamin D3) 25 MCG Tab PO SCH (08:07)
[2021-01-26] MEDS: Cyanocobalamin (Vitamin B12) 1,000 MCG Tab PO SCH (08:07)
[2021-01-26] MEDS: BUPROPION 300 MG PO SCH (19:32)
[2021-01-26] MEDS: LEVOTHYROXINE SODIUM 137 MCG PO SCH (19:32)
[2021-01-26] MEDS: Simvastatin 10 MG Tab PO SCH (19:33)
[2021-01-26] MEDS: Menthol/Methyl Salicylate 85 GM Tube TOP PRN (19:33)
[2021-01-27] MEDS: Albuterol/Ipratropium 3.0-0.5 MG/3 ML Neb Soln NEB SCH ×4 (08:20→19:16)
[2021-01-27] MEDS: Docusate Sodium 100 MG Cap PO SCH ×2 (08:20→17:00)
[2021-01-27] MEDS: Ferrous Sulfate 325 MG Tab PO SCH (08:20)
[2021-01-27] MEDS: Citalopram 20 MG Tab PO SCH (08:20)
[2021-01-27] MEDS: Potassium Chloride 20 MEQ Tab.ER PO SCH ×4 (08:21→19:18)
[2021-01-27] MEDS: Furosemide 20 MG Tab PO SCH ×2 (08:21→11:53)
[2021-01-27] MEDS: Fludrocortisone 0.1 MG Tab PO SCH ×2 (08:21→19:18)
[2021-01-27] MEDS: Calcium Carbonate 750 MG Tab.Chew PO SCH (08:22)
[2021-01-27] MEDS: Acetaminophen 325 MG Tab PO SCH ×3 (08:22→17:00)
[2021-01-27] MEDS: Niacin 500 MG Tab PO SCH ×2 (08:22→17:00)
[2021-01-27] MEDS: Cholecalciferol (Vitamin D3) 25 MCG Tab PO SCH (08:23)
[2021-01-27] MEDS: Cyanocobalamin (Vitamin B12) 1,000 MCG Tab PO SCH (08:23)
[2021-01-27] MEDS: LEVOTHYROXINE SODIUM 137 MCG PO SCH (19:19)
[2021-01-27] MEDS: BUPROPION 300 MG PO SCH (19:19)
[2021-01-27] MEDS: Simvastatin 10 MG Tab PO SCH (19:19)
[2021-01-27] MEDS: Menthol/Methyl Salicylate 85 GM Tube TOP PRN (19:20)
[2021-01-28] MEDS: Ibuprofen 600 MG Tab PO PRN (05:21)
[2021-01-28] MEDS: Citalopram 20 MG Tab PO SCH (07:29)
[2021-01-28] MEDS: Albuterol/Ipratropium 3.0-0.5 MG/3 ML Neb Soln NEB SCH ×4 (07:29→19:22)
[2021-01-28] MEDS: Potassium Chloride 20 MEQ Tab.ER PO SCH ×4 (07:30→19:24)
[2021-01-28] MEDS: Docusate Sodium 100 MG Cap PO SCH ×2 (07:30→17:27)
[2021-01-28] MEDS: Ferrous Sulfate 325 MG Tab PO SCH (07:30)
[2021-01-28] MEDS: Fludrocortisone 0.1 MG Tab PO SCH ×2 (07:30→19:24)
[2021-01-28] MEDS: Furosemide 20 MG Tab PO SCH ×2 (07:31→12:43)
[2021-01-28] MEDS: Niacin 500 MG Tab PO SCH ×2 (07:31→17:27)
[2021-01-28] MEDS: Calcium Carbonate 750 MG Tab.Chew PO SCH (07:32)
[2021-01-28] MEDS: Acetaminophen 325 MG Tab PO SCH ×3 (07:32→17:28)
[2021-01-28] MEDS: Cyanocobalamin (Vitamin B12) 1,000 MCG Tab PO SCH (07:33)
[2021-01-28] MEDS: Cholecalciferol (Vitamin D3) 25 MCG Tab PO SCH (07:33)
[2021-01-28] MEDS: LEVOTHYROXINE SODIUM 137 MCG PO SCH (19:25)
[2021-01-28] MEDS: BUPROPION 300 MG PO SCH (19:25)
[2021-01-28] MEDS: Menthol/Methyl Salicylate 85 GM Tube TOP PRN (19:26)
[2021-01-28] MEDS: Simvastatin 10 MG Tab PO SCH (19:26)
[2021-01-29] MEDS: Fludrocortisone 0.1 MG Tab PO SCH ×2 (08:14→19:57)
[2021-01-29] MEDS: Furosemide 20 MG Tab PO SCH ×2 (08:14→11:51)
[2021-01-29] MEDS: Citalopram 20 MG Tab PO SCH (08:14)
[2021-01-29] MEDS: Potassium Chloride 20 MEQ Tab.ER PO SCH ×4 (08:14→19:57)
[2021-01-29] MEDS: Docusate Sodium 100 MG Cap PO SCH ×2 (08:15→17:46)
[2021-01-29] MEDS: Ferrous Sulfate 325 MG Tab PO SCH (08:15)
[2021-01-29] MEDS: Niacin 500 MG Tab PO SCH ×2 (08:15→17:46)
[2021-01-29] MEDS: Acetaminophen 325 MG Tab PO SCH ×3 (08:16→17:47)
[2021-01-29] MEDS: Calcium Carbonate 750 MG Tab.Chew PO SCH (08:16)
[2021-01-29] MEDS: Cholecalciferol (Vitamin D3) 25 MCG Tab PO SCH (08:17)
[2021-01-29] MEDS: Cyanocobalamin (Vitamin B12) 1,000 MCG Tab PO SCH (08:18)
[2021-01-29] MEDS: Albuterol/Ipratropium 3.0-0.5 MG/3 ML Neb Soln NEB SCH ×4 (08:19→19:57)
[2021-01-29] MEDS: LEVOTHYROXINE SODIUM 137 MCG PO SCH (19:57)
[2021-01-29] MEDS: Simvastatin 10 MG Tab PO SCH (19:58)
[2021-01-29] MEDS: BUPROPION 300 MG PO SCH (19:58)
[2021-01-29] MEDS: Menthol/Methyl Salicylate 85 GM Tube TOP PRN (20:00)
[2021-01-29] MEDS: Ibuprofen 600 MG Tab PO PRN (20:01)
[2021-01-30] MEDS: Citalopram 20 MG Tab PO SCH (12:09)
[2021-01-30] MEDS: Calcium Carbonate 750 MG Tab.Chew PO SCH (12:10)
[2021-01-30] MEDS: Cholecalciferol (Vitamin D3) 25 MCG Tab PO SCH (12:10)
[2021-01-30] MEDS: Albuterol/Ipratropium 3.0-0.5 MG/3 ML Neb Soln NEB SCH ×4 (12:10→19:23)
[2021-01-30] MEDS: Docusate Sodium 100 MG Cap PO SCH ×2 (12:10→17:32)
[2021-01-30] MEDS: Furosemide 20 MG Tab PO SCH ×2 (12:10→12:24)
[2021-01-30] MEDS: Niacin 500 MG Tab PO SCH ×2 (12:10→17:32)
[2021-01-30] MEDS: Fludrocortisone 0.1 MG Tab PO SCH ×2 (12:10→19:23)
[2021-01-30] MEDS: Potassium Chloride 20 MEQ Tab.ER PO SCH ×4 (12:10→19:24)
[2021-01-30] MEDS: Ferrous Sulfate 325 MG Tab PO SCH (12:10)
[2021-01-30] MEDS: Cyanocobalamin (Vitamin B12) 1,000 MCG Tab PO SCH (12:10)
[2021-01-30] MEDS: Acetaminophen 325 MG Tab PO SCH ×3 (12:10→17:33)
[2021-01-30] MEDS: Simvastatin 10 MG Tab PO SCH (19:24)
[2021-01-30] MEDS: LEVOTHYROXINE SODIUM 137 MCG PO SCH (19:24)
[2021-01-30] MEDS: BUPROPION 300 MG PO SCH (19:24)
[2021-01-31] MEDS: Potassium Chloride 20 MEQ Tab.ER PO SCH ×4 (07:49→19:10)
[2021-01-31] MEDS: Calcium Carbonate 750 MG Tab.Chew PO SCH (07:50)
[2021-01-31] MEDS: Fludrocortisone 0.1 MG Tab PO SCH ×2 (07:50→19:10)
[2021-01-31] MEDS: Niacin 500 MG Tab PO SCH ×2 (07:50→17:56)
[2021-01-31] MEDS: Citalopram 20 MG Tab PO SCH (07:50)
[2021-01-31] MEDS: Furosemide 20 MG Tab PO SCH ×2 (07:50→11:55)
[2021-01-31] MEDS: Ferrous Sulfate 325 MG Tab PO SCH (07:51)
[2021-01-31] MEDS: Acetaminophen 325 MG Tab PO SCH ×3 (07:51→17:57)
[2021-01-31] MEDS: Albuterol/Ipratropium 3.0-0.5 MG/3 ML Neb Soln NEB SCH ×4 (07:52→19:12)
[2021-01-31] MEDS: Docusate Sodium 100 MG Cap PO SCH ×2 (07:52→17:56)
[2021-01-31] MEDS: Cholecalciferol (Vitamin D3) 25 MCG Tab PO SCH (07:53)
[2021-01-31] MEDS: Cyanocobalamin (Vitamin B12) 1,000 MCG Tab PO SCH (07:53)
[2021-01-31] MEDS: Simvastatin 10 MG Tab PO SCH (19:11)
[2021-01-31] MEDS: LEVOTHYROXINE SODIUM 137 MCG PO SCH (19:11)
[2021-01-31] MEDS: BUPROPION 300 MG PO SCH (19:11)
[2021-02-01] MEDS: Albuterol/Ipratropium 3.0-0.5 MG/3 ML Neb Soln NEB SCH ×4 (07:00→19:14)
[2021-02-01] MEDS: Acetaminophen 325 MG Tab PO SCH ×3 (07:05→17:45)
[2021-02-01] MEDS: Citalopram 20 MG Tab PO SCH (07:06)
[2021-02-01] MEDS: Ferrous Sulfate 325 MG Tab PO SCH (07:06)
[2021-02-01] MEDS: Docusate Sodium 100 MG Cap PO SCH ×2 (07:06→17:44)
[2021-02-01] MEDS: Fludrocortisone 0.1 MG Tab PO SCH ×2 (07:07→19:16)
[2021-02-01] MEDS: Potassium Chloride 20 MEQ Tab.ER PO SCH ×4 (07:07→19:17)
[2021-02-01] MEDS: Furosemide 20 MG Tab PO SCH ×2 (07:07→11:05)
[2021-02-01] MEDS: Calcium Carbonate 750 MG Tab.Chew PO SCH (07:08)
[2021-02-01] MEDS: Cholecalciferol (Vitamin D3) 25 MCG Tab PO SCH (07:08)
[2021-02-01] MEDS: Cyanocobalamin (Vitamin B12) 1,000 MCG Tab PO SCH (07:08)
[2021-02-01] MEDS: Niacin 500 MG Tab PO SCH ×2 (07:08→17:44)
[2021-02-01] MEDS: Ibuprofen 600 MG Tab PO PRN (07:09)
[2021-02-01] MEDS: BUPROPION 300 MG PO SCH (19:17)
[2021-02-01] MEDS: LEVOTHYROXINE SODIUM 137 MCG PO SCH (19:17)
[2021-02-01] MEDS: Simvastatin 10 MG Tab PO SCH (19:18)
[2021-02-01] MEDS: Menthol/Methyl Salicylate 85 GM Tube TOP PRN (19:24)
[2021-02-02] MEDS: Citalopram 20 MG Tab PO SCH (08:04)
[2021-02-02] MEDS: Fludrocortisone 0.1 MG Tab PO SCH ×2 (08:04→19:30)
[2021-02-02] MEDS: Albuterol/Ipratropium 3.0-0.5 MG/3 ML Neb Soln NEB SCH ×4 (08:04→19:30)
[2021-02-02] MEDS: Potassium Chloride 20 MEQ Tab.ER PO SCH ×4 (08:05→19:30)
[2021-02-02] MEDS: Furosemide 20 MG Tab PO SCH ×2 (08:05→11:24)
[2021-02-02] MEDS: Ferrous Sulfate 325 MG Tab PO SCH (08:07)
[2021-02-02] MEDS: Docusate Sodium 100 MG Cap PO SCH ×2 (08:07→17:34)
[2021-02-02] MEDS: Cholecalciferol (Vitamin D3) 25 MCG Tab PO SCH (08:07)
[2021-02-02] MEDS: Niacin 500 MG Tab PO SCH ×2 (08:07→17:34)
[2021-02-02] MEDS: Acetaminophen 325 MG Tab PO SCH ×3 (08:08→17:34)
[2021-02-02] MEDS: Cyanocobalamin (Vitamin B12) 1,000 MCG Tab PO SCH (08:08)
[2021-02-02] MEDS: Calcium Carbonate 750 MG Tab.Chew PO SCH (08:08)
[2021-02-02] MEDS: Ibuprofen 600 MG Tab PO PRN (16:08)
[2021-02-02] MEDS: Menthol/Methyl Salicylate 85 GM Tube TOP PRN (16:12)
[2021-02-02] MEDS: Simvastatin 10 MG Tab PO SCH (19:30)
[2021-02-02] MEDS: LEVOTHYROXINE SODIUM 137 MCG PO SCH (19:30)
[2021-02-02] MEDS: BUPROPION 300 MG PO SCH (19:30)
[2021-02-03] MEDS: Ibuprofen 600 MG Tab PO PRN (07:16)
[2021-02-03] MEDS: Ferrous Sulfate 325 MG Tab PO SCH (07:17)
[2021-02-03] MEDS: Citalopram 20 MG Tab PO SCH (07:17)
[2021-02-03] MEDS: Fludrocortisone 0.1 MG Tab PO SCH ×2 (07:17→19:21)
[2021-02-03] MEDS: Albuterol/Ipratropium 3.0-0.5 MG/3 ML Neb Soln NEB SCH ×4 (07:17→19:21)
[2021-02-03] MEDS: Docusate Sodium 100 MG Cap PO SCH ×2 (07:17→17:10)
[2021-02-03] MEDS: Niacin 500 MG Tab PO SCH ×2 (07:18→17:11)
[2021-02-03] MEDS: Potassium Chloride 20 MEQ Tab.ER PO SCH ×4 (07:18→19:21)
[2021-02-03] MEDS: Calcium Carbonate 750 MG Tab.Chew PO SCH (07:18)
[2021-02-03] MEDS: Furosemide 20 MG Tab PO SCH ×2 (07:18→11:18)
[2021-02-03] MEDS: Cyanocobalamin (Vitamin B12) 1,000 MCG Tab PO SCH (07:19)
[2021-02-03] MEDS: Cholecalciferol (Vitamin D3) 25 MCG Tab PO SCH (07:19)
[2021-02-03] MEDS: Acetaminophen 325 MG Tab PO SCH ×3 (07:19→17:11)
[2021-02-03] MEDS: BUPROPION 300 MG PO SCH (19:22)
[2021-02-03] MEDS: Simvastatin 10 MG Tab PO SCH (19:22)
[2021-02-03] MEDS: LEVOTHYROXINE SODIUM 137 MCG PO SCH (19:22)
[2021-02-04] MEDS: Citalopram 20 MG Tab PO SCH (07:20)
[2021-02-04] MEDS: Ferrous Sulfate 325 MG Tab PO SCH (07:20)
[2021-02-04] MEDS: Docusate Sodium 100 MG Cap PO SCH ×2 (07:20→17:12)
[2021-02-04] MEDS: Fludrocortisone 0.1 MG Tab PO SCH ×2 (07:20→19:14)
[2021-02-04] MEDS: Albuterol/Ipratropium 3.0-0.5 MG/3 ML Neb Soln NEB SCH ×4 (07:20→19:14)
[2021-02-04] MEDS: Potassium Chloride 20 MEQ Tab.ER PO SCH ×4 (07:21→19:14)
[2021-02-04] MEDS: Niacin 500 MG Tab PO SCH ×2 (07:21→17:12)
[2021-02-04] MEDS: Furosemide 20 MG Tab PO SCH ×2 (07:21→11:09)
[2021-02-04] MEDS: Acetaminophen 325 MG Tab PO SCH ×3 (07:22→17:12)
[2021-02-04] MEDS: Calcium Carbonate 750 MG Tab.Chew PO SCH (07:22)
[2021-02-04] MEDS: Ibuprofen 600 MG Tab PO PRN (07:23)
[2021-02-04] MEDS: Cyanocobalamin (Vitamin B12) 1,000 MCG Tab PO SCH (07:23)
[2021-02-04] MEDS: Cholecalciferol (Vitamin D3) 25 MCG Tab PO SCH (07:23)
[2021-02-04] MEDS: BUPROPION 300 MG PO SCH (19:14)
[2021-02-04] MEDS: LEVOTHYROXINE SODIUM 137 MCG PO SCH (19:14)
[2021-02-04] MEDS: Simvastatin 10 MG Tab PO SCH (19:15)
[2021-02-05] MEDS: Ibuprofen 600 MG Tab PO PRN ×2 (07:17→15:08)
[2021-02-05] MEDS: Citalopram 20 MG Tab PO SCH (07:17)
[2021-02-05] MEDS: Potassium Chloride 20 MEQ Tab.ER PO SCH ×4 (07:18→19:30)
[2021-02-05] MEDS: Docusate Sodium 100 MG Cap PO SCH ×2 (07:18→17:13)
[2021-02-05] MEDS: Ferrous Sulfate 325 MG Tab PO SCH (07:18)
[2021-02-05] MEDS: Fludrocortisone 0.1 MG Tab PO SCH ×2 (07:18→19:30)
[2021-02-05] MEDS: Albuterol/Ipratropium 3.0-0.5 MG/3 ML Neb Soln NEB SCH ×4 (07:18→19:28)
[2021-02-05] MEDS: Furosemide 20 MG Tab PO SCH ×2 (07:19→11:07)
[2021-02-05] MEDS: Calcium Carbonate 750 MG Tab.Chew PO SCH (07:19)
[2021-02-05] MEDS: Niacin 500 MG Tab PO SCH ×2 (07:19→17:13)
[2021-02-05] MEDS: Cholecalciferol (Vitamin D3) 25 MCG Tab PO SCH (07:20)
[2021-02-05] MEDS: Cyanocobalamin (Vitamin B12) 1,000 MCG Tab PO SCH (07:20)
[2021-02-05] MEDS: Acetaminophen 325 MG Tab PO SCH ×3 (07:20→17:14)
[2021-02-05] MEDS: LEVOTHYROXINE SODIUM 137 MCG PO SCH (19:30)
[2021-02-05] MEDS: Simvastatin 10 MG Tab PO SCH (19:31)
[2021-02-05] MEDS: BUPROPION 300 MG PO SCH (19:31)
[2021-02-06] MEDS: Ibuprofen 600 MG Tab PO PRN (03:52)
[2021-02-06] MEDS: Potassium Chloride 20 MEQ Tab.ER PO SCH ×4 (08:11→19:36)
[2021-02-06] MEDS: Citalopram 20 MG Tab PO SCH (08:11)
[2021-02-06] MEDS: Fludrocortisone 0.1 MG Tab PO SCH ×2 (08:11→19:36)
[2021-02-06] MEDS: Furosemide 20 MG Tab PO SCH ×2 (08:11→12:11)
[2021-02-06] MEDS: Albuterol/Ipratropium 3.0-0.5 MG/3 ML Neb Soln NEB SCH ×4 (08:12→19:34)
[2021-02-06] MEDS: Docusate Sodium 100 MG Cap PO SCH ×2 (08:12→17:56)
[2021-02-06] MEDS: Calcium Carbonate 750 MG Tab.Chew PO SCH (08:13)
[2021-02-06] MEDS: Ferrous Sulfate 325 MG Tab PO SCH (08:13)
[2021-02-06] MEDS: Niacin 500 MG Tab PO SCH ×2 (08:13→17:56)
[2021-02-06] MEDS: Cyanocobalamin (Vitamin B12) 1,000 MCG Tab PO SCH (08:14)
[2021-02-06] MEDS: Acetaminophen 325 MG Tab PO SCH ×3 (08:14→17:56)
[2021-02-06] MEDS: Cholecalciferol (Vitamin D3) 25 MCG Tab PO SCH (08:15)
[2021-02-06] MEDS: LEVOTHYROXINE SODIUM 137 MCG PO SCH (19:37)
[2021-02-06] MEDS: BUPROPION 300 MG PO SCH (19:37)
[2021-02-06] MEDS: Simvastatin 10 MG Tab PO SCH (19:37)
[2021-02-07] MEDS: Acetaminophen 325 MG Tab PO PRN (01:19)
[2021-02-07] MEDS: Fludrocortisone 0.1 MG Tab PO SCH ×2 (07:39→19:16)
[2021-02-07] MEDS: Citalopram 20 MG Tab PO SCH (07:39)
[2021-02-07] MEDS: Potassium Chloride 20 MEQ Tab.ER PO SCH ×4 (07:39→19:17)
[2021-02-07] MEDS: Furosemide 20 MG Tab PO SCH ×2 (07:40→11:56)
[2021-02-07] MEDS: Docusate Sodium 100 MG Cap PO SCH ×2 (07:41→17:22)
[2021-02-07] MEDS: Albuterol/Ipratropium 3.0-0.5 MG/3 ML Neb Soln NEB SCH ×4 (07:42→19:13)
[2021-02-07] MEDS: Ferrous Sulfate 325 MG Tab PO SCH (07:42)
[2021-02-07] MEDS: Niacin 500 MG Tab PO SCH ×2 (07:43→17:22)
[2021-02-07] MEDS: Calcium Carbonate 750 MG Tab.Chew PO SCH (07:44)
[2021-02-07] MEDS: Acetaminophen 325 MG Tab PO SCH ×3 (07:44→17:23)
[2021-02-07] MEDS: Cyanocobalamin (Vitamin B12) 1,000 MCG Tab PO SCH (07:46)
[2021-02-07] MEDS: Cholecalciferol (Vitamin D3) 25 MCG Tab PO SCH (07:47)
[2021-02-07] MEDS: Simvastatin 10 MG Tab PO SCH (19:17)
[2021-02-07] MEDS: LEVOTHYROXINE SODIUM 137 MCG PO SCH (19:17)
[2021-02-07] MEDS: BUPROPION 300 MG PO SCH (19:17)
[2021-02-07] MEDS: Menthol/Methyl Salicylate 85 GM Tube TOP PRN (19:18)
[2021-02-08] MEDS: Docusate Sodium 100 MG Cap PO SCH ×2 (08:17→17:32)
[2021-02-08] MEDS: Fludrocortisone 0.1 MG Tab PO SCH ×2 (08:17→19:11)
[2021-02-08] MEDS: Furosemide 20 MG Tab PO SCH ×2 (08:18→11:46)
[2021-02-08] MEDS: Citalopram 20 MG Tab PO SCH (08:18)
[2021-02-08] MEDS: Ferrous Sulfate 325 MG Tab PO SCH (08:18)
[2021-02-08] MEDS: Albuterol/Ipratropium 3.0-0.5 MG/3 ML Neb Soln NEB SCH ×4 (08:18→19:10)
[2021-02-08] MEDS: Potassium Chloride 20 MEQ Tab.ER PO SCH ×4 (08:19→19:11)
[2021-02-08] MEDS: Niacin 500 MG Tab PO SCH ×2 (08:19→17:33)
[2021-02-08] MEDS: Calcium Carbonate 750 MG Tab.Chew PO SCH (08:19)
[2021-02-08] MEDS: Cyanocobalamin (Vitamin B12) 1,000 MCG Tab PO SCH (08:21)
[2021-02-08] MEDS: Acetaminophen 325 MG Tab PO SCH ×3 (08:21→17:32)
[2021-02-08] MEDS: Cholecalciferol (Vitamin D3) 25 MCG Tab PO SCH (08:22)
[2021-02-08] MEDS: LEVOTHYROXINE SODIUM 137 MCG PO SCH (19:11)
[2021-02-08] MEDS: BUPROPION 300 MG PO SCH (19:12)
[2021-02-08] MEDS: Simvastatin 10 MG Tab PO SCH (19:12)
[2021-02-09] MEDS: Albuterol/Ipratropium 3.0-0.5 MG/3 ML Neb Soln NEB SCH ×4 (07:43→19:56)
[2021-02-09] MEDS: Docusate Sodium 100 MG Cap PO SCH ×2 (07:43→17:02)
[2021-02-09] MEDS: Calcium Carbonate 750 MG Tab.Chew PO SCH (07:43)
[2021-02-09] MEDS: Acetaminophen 325 MG Tab PO SCH ×3 (07:44→17:02)
[2021-02-09] MEDS: Cholecalciferol (Vitamin D3) 25 MCG Tab PO SCH (07:44)
[2021-02-09] MEDS: Cyanocobalamin (Vitamin B12) 1,000 MCG Tab PO SCH (07:44)
[2021-02-09] MEDS: Niacin 500 MG Tab PO SCH ×2 (07:44→17:02)
[2021-02-09] MEDS: Furosemide 20 MG Tab PO SCH ×2 (07:45→11:21)
[2021-02-09] MEDS: Potassium Chloride 20 MEQ Tab.ER PO SCH ×4 (07:45→19:57)
[2021-02-09] MEDS: Citalopram 20 MG Tab PO SCH (07:45)
[2021-02-09] MEDS: Fludrocortisone 0.1 MG Tab PO SCH ×2 (07:45→19:57)
[2021-02-09] MEDS: Ferrous Sulfate 325 MG Tab PO SCH (07:46)
[2021-02-09] MEDS: LEVOTHYROXINE SODIUM 137 MCG PO SCH (19:57)
[2021-02-09] MEDS: Simvastatin 10 MG Tab PO SCH (19:58)
[2021-02-09] MEDS: BUPROPION 300 MG PO SCH (19:58)
[2021-02-09] MEDS: Menthol/Methyl Salicylate 85 GM Tube TOP PRN (19:58)
[2021-02-10] MEDS: Acetaminophen 325 MG Tab PO PRN (01:20)
[2021-02-10] MEDS: Fludrocortisone 0.1 MG Tab PO SCH ×2 (07:31→19:30)
[2021-02-10] MEDS: Furosemide 20 MG Tab PO SCH ×2 (07:32→11:21)
[2021-02-10] MEDS: Citalopram 20 MG Tab PO SCH (07:32)
[2021-02-10] MEDS: Potassium Chloride 20 MEQ Tab.ER PO SCH ×4 (07:32→19:30)
[2021-02-10] MEDS: Ferrous Sulfate 325 MG Tab PO SCH (07:33)
[2021-02-10] MEDS: Docusate Sodium 100 MG Cap PO SCH ×2 (07:33→17:31)
[2021-02-10] MEDS: Acetaminophen 325 MG Tab PO SCH ×3 (07:33→17:32)
[2021-02-10] MEDS: Albuterol/Ipratropium 3.0-0.5 MG/3 ML Neb Soln NEB SCH ×4 (07:33→19:27)
[2021-02-10] MEDS: Cholecalciferol (Vitamin D3) 25 MCG Tab PO SCH (07:33)
[2021-02-10] MEDS: Cyanocobalamin (Vitamin B12) 1,000 MCG Tab PO SCH (07:33)
[2021-02-10] MEDS: Calcium Carbonate 750 MG Tab.Chew PO SCH (07:34)
[2021-02-10] MEDS: Niacin 500 MG Tab PO SCH ×2 (07:34→17:32)
[2021-02-10] MEDS: LEVOTHYROXINE SODIUM 137 MCG PO SCH (19:30)
[2021-02-10] MEDS: BUPROPION 300 MG PO SCH (19:31)
[2021-02-10] MEDS: Simvastatin 10 MG Tab PO SCH (19:31)
[2021-02-10] MEDS: Menthol/Methyl Salicylate 85 GM Tube TOP PRN (19:32)
[2021-02-11] MEDS: Acetaminophen 325 MG Tab PO PRN (01:03)
[2021-02-11] MEDS: Albuterol/Ipratropium 3.0-0.5 MG/3 ML Neb Soln NEB SCH ×4 (07:50→19:37)
[2021-02-11] MEDS: Potassium Chloride 20 MEQ Tab.ER PO SCH ×4 (07:50→19:39)
[2021-02-11] MEDS: Furosemide 20 MG Tab PO SCH ×2 (07:50→11:39)
[2021-02-11] MEDS: Citalopram 20 MG Tab PO SCH (07:50)
[2021-02-11] MEDS: Fludrocortisone 0.1 MG Tab PO SCH ×2 (07:50→19:39)
[2021-02-11] MEDS: Calcium Carbonate 750 MG Tab.Chew PO SCH (07:51)
[2021-02-11] MEDS: Niacin 500 MG Tab PO SCH ×2 (07:51→17:32)
[2021-02-11] MEDS: Cholecalciferol (Vitamin D3) 25 MCG Tab PO SCH (07:51)
[2021-02-11] MEDS: Docusate Sodium 100 MG Cap PO SCH ×2 (07:51→17:33)
[2021-02-11] MEDS: Cyanocobalamin (Vitamin B12) 1,000 MCG Tab PO SCH (07:51)
[2021-02-11] MEDS: Ferrous Sulfate 325 MG Tab PO SCH (07:51)
[2021-02-11] MEDS: Acetaminophen 325 MG Tab PO SCH ×3 (07:52→17:32)
[2021-02-11] MEDS: BUPROPION 300 MG PO SCH (19:39)
[2021-02-11] MEDS: LEVOTHYROXINE SODIUM 137 MCG PO SCH (19:39)
[2021-02-11] MEDS: Simvastatin 10 MG Tab PO SCH (19:40)
[2021-02-11] MEDS: Menthol/Methyl Salicylate 85 GM Tube TOP PRN (19:40)
[2021-02-12] MEDS: Fludrocortisone 0.1 MG Tab PO SCH ×2 (07:00→19:33)
[2021-02-12] MEDS: Citalopram 20 MG Tab PO SCH (07:01)
[2021-02-12] MEDS: Furosemide 20 MG Tab PO SCH ×2 (07:01→11:26)
[2021-02-12] MEDS: Potassium Chloride 20 MEQ Tab.ER PO SCH ×4 (07:01→19:33)
[2021-02-12] MEDS: Ibuprofen 600 MG Tab PO PRN (07:02)
[2021-02-12] MEDS: Docusate Sodium 100 MG Cap PO SCH ×2 (07:03→17:19)
[2021-02-12] MEDS: Albuterol/Ipratropium 3.0-0.5 MG/3 ML Neb Soln NEB SCH ×4 (07:03→19:35)
[2021-02-12] MEDS: Ferrous Sulfate 325 MG Tab PO SCH (07:04)
[2021-02-12] MEDS: Niacin 500 MG Tab PO SCH ×2 (07:04→17:19)
[2021-02-12] MEDS: Calcium Carbonate 750 MG Tab.Chew PO SCH (07:05)
[2021-02-12] MEDS: Acetaminophen 325 MG Tab PO SCH ×3 (07:06→17:19)
[2021-02-12] MEDS: Cyanocobalamin (Vitamin B12) 1,000 MCG Tab PO SCH (07:07)
[2021-02-12] MEDS: Cholecalciferol (Vitamin D3) 25 MCG Tab PO SCH (07:07)
[2021-02-12] MEDS: Simvastatin 10 MG Tab PO SCH (19:33)
[2021-02-12] MEDS: LEVOTHYROXINE SODIUM 137 MCG PO SCH (19:33)
[2021-02-12] MEDS: BUPROPION 300 MG PO SCH (19:33)
[2021-02-13] MEDS: Acetaminophen 325 MG Tab PO PRN (02:42)
[2021-02-13] MEDS: Albuterol/Ipratropium 3.0-0.5 MG/3 ML Neb Soln NEB SCH ×4 (07:17→19:13)
[2021-02-13] MEDS: Ibuprofen 600 MG Tab PO PRN (07:18)
[2021-02-13] MEDS: Acetaminophen 325 MG Tab PO SCH ×3 (07:19→17:13)
[2021-02-13] MEDS: Citalopram 20 MG Tab PO SCH (07:19)
[2021-02-13] MEDS: Docusate Sodium 100 MG Cap PO SCH ×2 (07:19→17:12)
[2021-02-13] MEDS: Ferrous Sulfate 325 MG Tab PO SCH (07:20)
[2021-02-13] MEDS: Fludrocortisone 0.1 MG Tab PO SCH ×2 (07:20→19:12)
[2021-02-13] MEDS: Potassium Chloride 20 MEQ Tab.ER PO SCH ×4 (07:20→19:13)
[2021-02-13] MEDS: Furosemide 20 MG Tab PO SCH ×2 (07:20→11:34)
[2021-02-13] MEDS: Cholecalciferol (Vitamin D3) 25 MCG Tab PO SCH (07:21)
[2021-02-13] MEDS: Calcium Carbonate 750 MG Tab.Chew PO SCH (07:21)
[2021-02-13] MEDS: Cyanocobalamin (Vitamin B12) 1,000 MCG Tab PO SCH (07:21)
[2021-02-13] MEDS: Niacin 500 MG Tab PO SCH ×2 (07:21→17:12)
[2021-02-13] MEDS: Nitrofurantoin Monohydrate/Macrocrystalline 100 MG Cap PO SCH (17:12)
[2021-02-13] MEDS: BUPROPION 300 MG PO SCH (19:13)
[2021-02-13] MEDS: Simvastatin 10 MG Tab PO SCH (19:13)
[2021-02-13] MEDS: LEVOTHYROXINE SODIUM 137 MCG PO SCH (19:13)
[2021-02-14] MEDS: Ibuprofen 600 MG Tab PO PRN ×2 (00:57→18:26)
[2021-02-14] MEDS: Citalopram 20 MG Tab PO SCH (07:28)
[2021-02-14] MEDS: Potassium Chloride 20 MEQ Tab.ER PO SCH ×4 (07:28→19:27)
[2021-02-14] MEDS: Fludrocortisone 0.1 MG Tab PO SCH ×2 (07:28→19:27)
[2021-02-14] MEDS: Albuterol/Ipratropium 3.0-0.5 MG/3 ML Neb Soln NEB SCH ×4 (07:29→19:26)
[2021-02-14] MEDS: Furosemide 20 MG Tab PO SCH ×2 (07:29→11:22)
[2021-02-14] MEDS: Docusate Sodium 100 MG Cap PO SCH ×2 (07:29→17:14)
[2021-02-14] MEDS: Ferrous Sulfate 325 MG Tab PO SCH (07:30)
[2021-02-14] MEDS: Nitrofurantoin Monohydrate/Macrocrystalline 100 MG Cap PO SCH ×2 (07:31→17:14)
[2021-02-14] MEDS: Niacin 500 MG Tab PO SCH ×2 (07:32→17:14)
[2021-02-14] MEDS: Calcium Carbonate 750 MG Tab.Chew PO SCH (07:32)
[2021-02-14] MEDS: Cyanocobalamin (Vitamin B12) 1,000 MCG Tab PO SCH (07:33)
[2021-02-14] MEDS: Acetaminophen 325 MG Tab PO SCH ×3 (07:33→17:15)
[2021-02-14] MEDS: Cholecalciferol (Vitamin D3) 25 MCG Tab PO SCH (07:34)
[2021-02-14] MEDS: LEVOTHYROXINE SODIUM 137 MCG PO SCH (19:27)
[2021-02-14] MEDS: Simvastatin 10 MG Tab PO SCH (19:27)
[2021-02-14] MEDS: BUPROPION 300 MG PO SCH (19:27)
[2021-02-15] MEDS: Citalopram 20 MG Tab PO SCH (07:29)
[2021-02-15] MEDS: Fludrocortisone 0.1 MG Tab PO SCH ×2 (07:30→19:43)
[2021-02-15] MEDS: Potassium Chloride 20 MEQ Tab.ER PO SCH ×4 (07:30→19:43)
[2021-02-15] MEDS: Nitrofurantoin Monohydrate/Macrocrystalline 100 MG Cap PO SCH ×2 (07:30→17:29)
[2021-02-15] MEDS: Furosemide 20 MG Tab PO SCH ×2 (07:30→11:14)
[2021-02-15] MEDS: Cholecalciferol (Vitamin D3) 25 MCG Tab PO SCH (07:32)
[2021-02-15] MEDS: Cyanocobalamin (Vitamin B12) 1,000 MCG Tab PO SCH (07:32)
[2021-02-15] MEDS: Docusate Sodium 100 MG Cap PO SCH ×2 (07:32→17:28)
[2021-02-15] MEDS: Acetaminophen 325 MG Tab PO SCH ×3 (07:32→17:28)
[2021-02-15] MEDS: Ferrous Sulfate 325 MG Tab PO SCH (07:33)
[2021-02-15] MEDS: Albuterol/Ipratropium 3.0-0.5 MG/3 ML Neb Soln NEB SCH ×4 (07:33→19:36)
[2021-02-15] MEDS: Calcium Carbonate 750 MG Tab.Chew PO SCH (07:33)
[2021-02-15] MEDS: Niacin 500 MG Tab PO SCH ×2 (07:33→17:28)
[2021-02-15] MEDS: LEVOTHYROXINE SODIUM 137 MCG PO SCH (19:43)
[2021-02-15] MEDS: BUPROPION 300 MG PO SCH (19:44)
[2021-02-15] MEDS: Simvastatin 10 MG Tab PO SCH (19:44)
[2021-02-16] MEDS: Citalopram 20 MG Tab PO SCH (08:20)
[2021-02-16] MEDS: Potassium Chloride 20 MEQ Tab.ER PO SCH ×4 (08:21→19:46)
[2021-02-16] MEDS: Fludrocortisone 0.1 MG Tab PO SCH ×2 (08:21→19:46)
[2021-02-16] MEDS: Furosemide 20 MG Tab PO SCH ×2 (08:21→11:39)
[2021-02-16] MEDS: Nitrofurantoin Monohydrate/Macrocrystalline 100 MG Cap PO SCH ×2 (08:21→17:28)
[2021-02-16] MEDS: Ferrous Sulfate 325 MG Tab PO SCH (08:22)
[2021-02-16] MEDS: Docusate Sodium 100 MG Cap PO SCH ×2 (08:22→17:27)
[2021-02-16] MEDS: Albuterol/Ipratropium 3.0-0.5 MG/3 ML Neb Soln NEB SCH ×4 (08:22→19:45)
[2021-02-16] MEDS: Acetaminophen 325 MG Tab PO SCH ×3 (08:23→17:28)
[2021-02-16] MEDS: Calcium Carbonate 750 MG Tab.Chew PO SCH (08:23)
[2021-02-16] MEDS: Niacin 500 MG Tab PO SCH ×2 (08:23→17:28)
[2021-02-16] MEDS: Cyanocobalamin (Vitamin B12) 1,000 MCG Tab PO SCH (08:25)
[2021-02-16] MEDS: Cholecalciferol (Vitamin D3) 25 MCG Tab PO SCH (08:26)
[2021-02-16] MEDS: Ibuprofen 600 MG Tab PO PRN (08:27)
[2021-02-16] MEDS: LEVOTHYROXINE SODIUM 137 MCG PO SCH (19:47)
[2021-02-16] MEDS: BUPROPION 300 MG PO SCH (19:47)
[2021-02-16] MEDS: Menthol/Methyl Salicylate 85 GM Tube TOP PRN (19:47)
[2021-02-16] MEDS: Simvastatin 10 MG Tab PO SCH (19:47)
[2021-02-17] MEDS: Ibuprofen 600 MG Tab PO PRN ×2 (00:07→19:47)
[2021-02-17] MEDS: Docusate Sodium 100 MG Cap PO SCH ×2 (08:08→17:05)
[2021-02-17] MEDS: Potassium Chloride 20 MEQ Tab.ER PO SCH ×4 (08:09→19:46)
[2021-02-17] MEDS: Fludrocortisone 0.1 MG Tab PO SCH ×2 (08:09→19:46)
[2021-02-17] MEDS: Albuterol/Ipratropium 3.0-0.5 MG/3 ML Neb Soln NEB SCH ×4 (08:09→19:45)
[2021-02-17] MEDS: Nitrofurantoin Monohydrate/Macrocrystalline 100 MG Cap PO SCH ×2 (08:09→17:05)
[2021-02-17] MEDS: Furosemide 20 MG Tab PO SCH ×2 (08:09→12:10)
[2021-02-17] MEDS: Citalopram 20 MG Tab PO SCH (08:09)
[2021-02-17] MEDS: Niacin 500 MG Tab PO SCH ×2 (08:10→17:06)
[2021-02-17] MEDS: Ferrous Sulfate 325 MG Tab PO SCH (08:10)
[2021-02-17] MEDS: Calcium Carbonate 750 MG Tab.Chew PO SCH (08:10)
[2021-02-17] MEDS: Acetaminophen 325 MG Tab PO SCH ×3 (08:11→17:06)
[2021-02-17] MEDS: Cholecalciferol (Vitamin D3) 25 MCG Tab PO SCH (08:11)
[2021-02-17] MEDS: Cyanocobalamin (Vitamin B12) 1,000 MCG Tab PO SCH (08:11)
[2021-02-17] MEDS: Simvastatin 10 MG Tab PO SCH (19:46)
[2021-02-17] MEDS: LEVOTHYROXINE SODIUM 137 MCG PO SCH (19:46)
[2021-02-17] MEDS: BUPROPION 300 MG PO SCH (19:46)
[2021-02-17] MEDS: Menthol/Methyl Salicylate 85 GM Tube TOP PRN (19:47)
[2021-02-18] MEDS: Acetaminophen 325 MG Tab PO PRN (01:59)
[2021-02-18] MEDS: Nitrofurantoin Monohydrate/Macrocrystalline 100 MG Cap PO SCH (08:24)
[2021-02-18] MEDS: Citalopram 20 MG Tab PO SCH (08:25)
[2021-02-18] MEDS: Furosemide 20 MG Tab PO SCH ×2 (08:25→12:05)
[2021-02-18] MEDS: Fludrocortisone 0.1 MG Tab PO SCH ×2 (08:25→19:49)
[2021-02-18] MEDS: Potassium Chloride 20 MEQ Tab.ER PO SCH ×4 (08:25→19:49)
[2021-02-18] MEDS: Ferrous Sulfate 325 MG Tab PO SCH (08:26)
[2021-02-18] MEDS: Niacin 500 MG Tab PO SCH ×2 (08:26→17:42)
[2021-02-18] MEDS: Docusate Sodium 100 MG Cap PO SCH ×2 (08:26→17:41)
[2021-02-18] MEDS: Calcium Carbonate 750 MG Tab.Chew PO SCH (08:27)
[2021-02-18] MEDS: Acetaminophen 325 MG Tab PO SCH ×3 (08:27→17:42)
[2021-02-18] MEDS: Cyanocobalamin (Vitamin B12) 1,000 MCG Tab PO SCH (08:28)
[2021-02-18] MEDS: Albuterol/Ipratropium 3.0-0.5 MG/3 ML Neb Soln NEB SCH ×4 (08:28→19:48)
[2021-02-18] MEDS: Cholecalciferol (Vitamin D3) 25 MCG Tab PO SCH (08:28)
[2021-02-18] MEDS: BUPROPION 300 MG PO SCH (19:49)
[2021-02-18] MEDS: LEVOTHYROXINE SODIUM 137 MCG PO SCH (19:49)
[2021-02-18] MEDS: Simvastatin 10 MG Tab PO SCH (19:49)
[2021-02-18] MEDS: Menthol/Methyl Salicylate 85 GM Tube TOP PRN (19:50)
[2021-02-18] MEDS: Ibuprofen 600 MG Tab PO PRN (19:50)
[2021-02-19] MEDS: Furosemide 20 MG Tab PO SCH ×2 (08:19→12:15)
[2021-02-19] MEDS: Fludrocortisone 0.1 MG Tab PO SCH ×2 (08:19→19:23)
[2021-02-19] MEDS: Potassium Chloride 20 MEQ Tab.ER PO SCH ×4 (08:19→19:24)
[2021-02-19] MEDS: Citalopram 20 MG Tab PO SCH (08:20)
[2021-02-19] MEDS: Docusate Sodium 100 MG Cap PO SCH ×2 (08:20→17:44)
[2021-02-19] MEDS: Albuterol/Ipratropium 3.0-0.5 MG/3 ML Neb Soln NEB SCH ×4 (08:21→19:23)
[2021-02-19] MEDS: Ferrous Sulfate 325 MG Tab PO SCH (08:21)
[2021-02-19] MEDS: Calcium Carbonate 750 MG Tab.Chew PO SCH (08:22)
[2021-02-19] MEDS: Niacin 500 MG Tab PO SCH ×2 (08:22→17:44)
[2021-02-19] MEDS: Acetaminophen 325 MG Tab PO SCH ×3 (08:23→17:44)
[2021-02-19] MEDS: Cyanocobalamin (Vitamin B12) 1,000 MCG Tab PO SCH (08:24)
[2021-02-19] MEDS: Cholecalciferol (Vitamin D3) 25 MCG Tab PO SCH (08:24)
[2021-02-19] MEDS: BUPROPION 300 MG PO SCH (19:24)
[2021-02-19] MEDS: LEVOTHYROXINE SODIUM 137 MCG PO SCH (19:24)
[2021-02-19] MEDS: Menthol/Methyl Salicylate 85 GM Tube TOP PRN (19:25)
[2021-02-19] MEDS: Simvastatin 10 MG Tab PO SCH (19:25)
[2021-02-20] MEDS: Citalopram 20 MG Tab PO SCH (07:33)
[2021-02-20] MEDS: Potassium Chloride 20 MEQ Tab.ER PO SCH ×4 (07:33→19:30)
[2021-02-20] MEDS: Furosemide 20 MG Tab PO SCH ×2 (07:33→11:18)
[2021-02-20] MEDS: Fludrocortisone 0.1 MG Tab PO SCH ×2 (07:33→19:29)
[2021-02-20] MEDS: Docusate Sodium 100 MG Cap PO SCH ×2 (07:34→17:22)
[2021-02-20] MEDS: Ferrous Sulfate 325 MG Tab PO SCH (07:35)
[2021-02-20] MEDS: Calcium Carbonate 750 MG Tab.Chew PO SCH (07:36)
[2021-02-20] MEDS: Acetaminophen 325 MG Tab PO SCH ×3 (07:36→17:23)
[2021-02-20] MEDS: Niacin 500 MG Tab PO SCH ×2 (07:36→17:22)
[2021-02-20] MEDS: Cyanocobalamin (Vitamin B12) 1,000 MCG Tab PO SCH (07:37)
[2021-02-20] MEDS: Cholecalciferol (Vitamin D3) 25 MCG Tab PO SCH (07:38)
[2021-02-20] MEDS: Albuterol/Ipratropium 3.0-0.5 MG/3 ML Neb Soln NEB SCH ×4 (09:14→19:29)
[2021-02-20] MEDS: BUPROPION 300 MG PO SCH (19:30)
[2021-02-20] MEDS: LEVOTHYROXINE SODIUM 137 MCG PO SCH (19:30)
[2021-02-20] MEDS: Simvastatin 10 MG Tab PO SCH (19:30)
[2021-02-20] MEDS: Ibuprofen 600 MG Tab PO PRN (19:31)
[2021-02-20] MEDS: Menthol/Methyl Salicylate 85 GM Tube TOP PRN (19:31)
[2021-02-21] MEDS: Acetaminophen 325 MG Tab PO PRN (03:39)
[2021-02-21] MEDS: Furosemide 20 MG Tab PO SCH ×2 (07:15→12:00)
[2021-02-21] MEDS: Potassium Chloride 20 MEQ Tab.ER PO SCH ×4 (07:15→19:35)
[2021-02-21] MEDS: Fludrocortisone 0.1 MG Tab PO SCH ×2 (07:15→19:34)
[2021-02-21] MEDS: Citalopram 20 MG Tab PO SCH (07:16)
[2021-02-21] MEDS: Docusate Sodium 100 MG Cap PO SCH ×2 (07:16→17:38)
[2021-02-21] MEDS: Albuterol/Ipratropium 3.0-0.5 MG/3 ML Neb Soln NEB SCH ×4 (07:16→19:33)
[2021-02-21] MEDS: Calcium Carbonate 750 MG Tab.Chew PO SCH (07:17)
[2021-02-21] MEDS: Niacin 500 MG Tab PO SCH ×2 (07:17→17:38)
[2021-02-21] MEDS: Ferrous Sulfate 325 MG Tab PO SCH (07:17)
[2021-02-21] MEDS: Acetaminophen 325 MG Tab PO SCH ×3 (07:19→17:38)
[2021-02-21] MEDS: Cholecalciferol (Vitamin D3) 25 MCG Tab PO SCH (07:20)
[2021-02-21] MEDS: Cyanocobalamin (Vitamin B12) 1,000 MCG Tab PO SCH (07:20)
[2021-02-21] MEDS: LEVOTHYROXINE SODIUM 137 MCG PO SCH (19:35)
[2021-02-21] MEDS: Simvastatin 10 MG Tab PO SCH (19:35)
[2021-02-21] MEDS: BUPROPION 300 MG PO SCH (19:35)
[2021-02-21] MEDS: Ibuprofen 600 MG Tab PO PRN (19:36)
[2021-02-21] MEDS: Menthol/Methyl Salicylate 85 GM Tube TOP PRN (19:37)
[2021-02-22] MEDS: Bacitracin/Neomycin/Polymyxin B Oint 0.9 GM U/D Packet TOP PRN ×2 (00:33→19:17)
[2021-02-22] MEDS: Calcium Carbonate 750 MG Tab.Chew PO SCH (08:03)
[2021-02-22] MEDS: Potassium Chloride 20 MEQ Tab.ER PO SCH ×4 (08:04→19:15)
[2021-02-22] MEDS: Furosemide 20 MG Tab PO SCH ×2 (08:04→11:43)
[2021-02-22] MEDS: Fludrocortisone 0.1 MG Tab PO SCH ×2 (08:04→19:15)
[2021-02-22] MEDS: Citalopram 20 MG Tab PO SCH (08:04)
[2021-02-22] MEDS: Ferrous Sulfate 325 MG Tab PO SCH (08:05)
[2021-02-22] MEDS: Cholecalciferol (Vitamin D3) 25 MCG Tab PO SCH (08:05)
[2021-02-22] MEDS: Docusate Sodium 100 MG Cap PO SCH ×2 (08:05→17:40)
[2021-02-22] MEDS: Niacin 500 MG Tab PO SCH ×2 (08:05→17:40)
[2021-02-22] MEDS: Cyanocobalamin (Vitamin B12) 1,000 MCG Tab PO SCH (08:05)
[2021-02-22] MEDS: Acetaminophen 325 MG Tab PO SCH ×3 (08:05→17:39)
[2021-02-22] MEDS: Albuterol/Ipratropium 3.0-0.5 MG/3 ML Neb Soln NEB SCH ×4 (08:05→19:15)
[2021-02-22] MEDS: Ibuprofen 600 MG Tab PO PRN (19:16)
[2021-02-22] MEDS: BUPROPION 300 MG PO SCH (19:16)
[2021-02-22] MEDS: Simvastatin 10 MG Tab PO SCH (19:16)
[2021-02-22] MEDS: LEVOTHYROXINE SODIUM 137 MCG PO SCH (19:16)
[2021-02-22] MEDS: Menthol/Methyl Salicylate 85 GM Tube TOP PRN (19:20)
[2021-02-23] MEDS: Acetaminophen 325 MG Tab PO PRN (00:58)
[2021-02-23] MEDS: Potassium Chloride 20 MEQ Tab.ER PO SCH ×4 (08:10→19:32)
[2021-02-23] MEDS: Furosemide 20 MG Tab PO SCH ×2 (08:10→11:48)
[2021-02-23] MEDS: Citalopram 20 MG Tab PO SCH (08:10)
[2021-02-23] MEDS: Fludrocortisone 0.1 MG Tab PO SCH ×2 (08:10→19:32)
[2021-02-23] MEDS: Calcium Carbonate 750 MG Tab.Chew PO SCH (08:11)
[2021-02-23] MEDS: Acetaminophen 325 MG Tab PO SCH ×3 (08:11→17:34)
[2021-02-23] MEDS: Cyanocobalamin (Vitamin B12) 1,000 MCG Tab PO SCH (08:12)
[2021-02-23] MEDS: Cholecalciferol (Vitamin D3) 25 MCG Tab PO SCH (08:12)
[2021-02-23] MEDS: Ferrous Sulfate 325 MG Tab PO SCH (08:13)
[2021-02-23] MEDS: Niacin 500 MG Tab PO SCH ×2 (08:13→17:33)
[2021-02-23] MEDS: Docusate Sodium 100 MG Cap PO SCH ×2 (08:13→17:33)
[2021-02-23] MEDS: Albuterol/Ipratropium 3.0-0.5 MG/3 ML Neb Soln NEB SCH ×4 (08:14→19:31)
[2021-02-23] MEDS: BUPROPION 300 MG PO SCH (19:32)
[2021-02-23] MEDS: LEVOTHYROXINE SODIUM 137 MCG PO SCH (19:32)
[2021-02-23] MEDS: Simvastatin 10 MG Tab PO SCH (19:33)
[2021-02-23] MEDS: Menthol/Methyl Salicylate 85 GM Tube TOP PRN (19:56)
[2021-02-24] MEDS: Acetaminophen 325 MG Tab PO PRN (04:24)
[2021-02-24] MEDS: Citalopram 20 MG Tab PO SCH (07:29)
[2021-02-24] MEDS: Docusate Sodium 100 MG Cap PO SCH ×2 (07:29→17:23)
[2021-02-24] MEDS: Albuterol/Ipratropium 3.0-0.5 MG/3 ML Neb Soln NEB SCH ×4 (07:29→19:15)
[2021-02-24] MEDS: Fludrocortisone 0.1 MG Tab PO SCH ×2 (07:30→19:16)
[2021-02-24] MEDS: Potassium Chloride 20 MEQ Tab.ER PO SCH ×4 (07:30→19:16)
[2021-02-24] MEDS: Furosemide 20 MG Tab PO SCH ×2 (07:30→11:07)
[2021-02-24] MEDS: Ferrous Sulfate 325 MG Tab PO SCH (07:30)
[2021-02-24] MEDS: Calcium Carbonate 750 MG Tab.Chew PO SCH (07:31)
[2021-02-24] MEDS: Acetaminophen 325 MG Tab PO SCH ×3 (07:31→17:23)
[2021-02-24] MEDS: Niacin 500 MG Tab PO SCH ×2 (07:31→17:23)
[2021-02-24] MEDS: Bacitracin/Neomycin/Polymyxin B Oint 0.9 GM U/D Packet TOP PRN (07:32)
[2021-02-24] MEDS: Cyanocobalamin (Vitamin B12) 1,000 MCG Tab PO SCH (07:32)
[2021-02-24] MEDS: Ibuprofen 600 MG Tab PO PRN ×2 (07:32→17:24)
[2021-02-24] MEDS: Cholecalciferol (Vitamin D3) 25 MCG Tab PO SCH (07:32)
[2021-02-24] MEDS: LEVOTHYROXINE SODIUM 137 MCG PO SCH (19:17)
[2021-02-24] MEDS: Simvastatin 10 MG Tab PO SCH (19:17)
[2021-02-24] MEDS: BUPROPION 300 MG PO SCH (19:17)
[2021-02-24] MEDS: Menthol/Methyl Salicylate 85 GM Tube TOP PRN (19:21)
[2021-02-25] MEDS: Albuterol/Ipratropium 3.0-0.5 MG/3 ML Neb Soln NEB SCH ×4 (07:28→19:27)
[2021-02-25] MEDS: Citalopram 20 MG Tab PO SCH (07:28)
[2021-02-25] MEDS: Docusate Sodium 100 MG Cap PO SCH ×2 (07:28→17:12)
[2021-02-25] MEDS: Potassium Chloride 20 MEQ Tab.ER PO SCH ×4 (07:29→19:28)
[2021-02-25] MEDS: Furosemide 20 MG Tab PO SCH ×2 (07:29→11:18)
[2021-02-25] MEDS: Ferrous Sulfate 325 MG Tab PO SCH (07:29)
[2021-02-25] MEDS: Fludrocortisone 0.1 MG Tab PO SCH ×2 (07:29→19:28)
[2021-02-25] MEDS: Calcium Carbonate 750 MG Tab.Chew PO SCH (07:30)
[2021-02-25] MEDS: Acetaminophen 325 MG Tab PO SCH ×3 (07:30→17:12)
[2021-02-25] MEDS: Niacin 500 MG Tab PO SCH ×2 (07:30→17:12)
[2021-02-25] MEDS: Cyanocobalamin (Vitamin B12) 1,000 MCG Tab PO SCH (07:31)
[2021-02-25] MEDS: Cholecalciferol (Vitamin D3) 25 MCG Tab PO SCH (07:31)
[2021-02-25] MEDS: Ibuprofen 600 MG Tab PO PRN ×2 (07:31→17:13)
[2021-02-25] MEDS: Bacitracin/Neomycin/Polymyxin B Oint 0.9 GM U/D Packet TOP PRN (07:33)
[2021-02-25] MEDS: LEVOTHYROXINE SODIUM 137 MCG PO SCH (19:28)
[2021-02-25] MEDS: BUPROPION 300 MG PO SCH (19:29)
[2021-02-25] MEDS: Simvastatin 10 MG Tab PO SCH (19:29)
[2021-02-26] MEDS: Ibuprofen 600 MG Tab PO PRN ×2 (03:11→12:09)
[2021-02-26] MEDS: Potassium Chloride 20 MEQ Tab.ER PO SCH ×4 (08:09→19:42)
[2021-02-26] MEDS: Docusate Sodium 100 MG Cap PO SCH ×2 (08:10→17:49)
[2021-02-26] MEDS: Furosemide 20 MG Tab PO SCH ×2 (08:10→12:09)
[2021-02-26] MEDS: Citalopram 20 MG Tab PO SCH (08:10)
[2021-02-26] MEDS: Fludrocortisone 0.1 MG Tab PO SCH ×2 (08:10→19:42)
[2021-02-26] MEDS: Albuterol/Ipratropium 3.0-0.5 MG/3 ML Neb Soln NEB SCH ×4 (08:11→19:39)
[2021-02-26] MEDS: Calcium Carbonate 750 MG Tab.Chew PO SCH (08:12)
[2021-02-26] MEDS: Acetaminophen 325 MG Tab PO SCH ×3 (08:12→17:49)
[2021-02-26] MEDS: Ferrous Sulfate 325 MG Tab PO SCH (08:12)
[2021-02-26] MEDS: Niacin 500 MG Tab PO SCH ×2 (08:12→17:49)
[2021-02-26] MEDS: Cyanocobalamin (Vitamin B12) 1,000 MCG Tab PO SCH (08:13)
[2021-02-26] MEDS: Cholecalciferol (Vitamin D3) 25 MCG Tab PO SCH (08:14)
[2021-02-26] MEDS: Bisacodyl 5 MG Tab PO PRN (17:50)
[2021-02-26] MEDS: BUPROPION 300 MG PO SCH (19:42)
[2021-02-26] MEDS: LEVOTHYROXINE SODIUM 137 MCG PO SCH (19:42)
[2021-02-26] MEDS: Menthol/Methyl Salicylate 85 GM Tube TOP PRN (19:43)
[2021-02-26] MEDS: Simvastatin 10 MG Tab PO SCH (19:43)
[2021-02-27] MEDS: Albuterol/Ipratropium 3.0-0.5 MG/3 ML Neb Soln NEB SCH ×4 (07:28→19:42)
[2021-02-27] MEDS: Ferrous Sulfate 325 MG Tab PO SCH (07:31)
[2021-02-27] MEDS: Fludrocortisone 0.1 MG Tab PO SCH ×2 (07:31→19:43)
[2021-02-27] MEDS: Docusate Sodium 100 MG Cap PO SCH ×2 (07:31→17:06)
[2021-02-27] MEDS: Potassium Chloride 20 MEQ Tab.ER PO SCH ×4 (07:31→19:44)
[2021-02-27] MEDS: Citalopram 20 MG Tab PO SCH (07:31)
[2021-02-27] MEDS: Calcium Carbonate 750 MG Tab.Chew PO SCH (07:32)
[2021-02-27] MEDS: Niacin 500 MG Tab PO SCH ×2 (07:32→17:06)
[2021-02-27] MEDS: Furosemide 20 MG Tab PO SCH ×2 (07:32→11:07)
[2021-02-27] MEDS: Ibuprofen 600 MG Tab PO PRN ×2 (07:33→17:07)
[2021-02-27] MEDS: Acetaminophen 325 MG Tab PO SCH ×3 (07:33→17:06)
[2021-02-27] MEDS: Cyanocobalamin (Vitamin B12) 1,000 MCG Tab PO SCH (07:34)
[2021-02-27] MEDS: Cholecalciferol (Vitamin D3) 25 MCG Tab PO SCH (07:34)
[2021-02-27] MEDS: Bacitracin/Neomycin/Polymyxin B Oint 0.9 GM U/D Packet TOP PRN (11:08)
[2021-02-27] MEDS: Menthol/Methyl Salicylate 85 GM Tube TOP PRN (19:43)
[2021-02-27] MEDS: LEVOTHYROXINE SODIUM 137 MCG PO SCH (19:44)
[2021-02-27] MEDS: Simvastatin 10 MG Tab PO SCH (19:45)
[2021-02-27] MEDS: BUPROPION 300 MG PO SCH (19:45)
[2021-02-28] MEDS: Albuterol/Ipratropium 3.0-0.5 MG/3 ML Neb Soln NEB SCH ×4 (07:28→19:20)
[2021-02-28] MEDS: Ibuprofen 600 MG Tab PO PRN ×2 (07:28→17:10)
[2021-02-28] MEDS: Citalopram 20 MG Tab PO SCH (07:29)
[2021-02-28] MEDS: Docusate Sodium 100 MG Cap PO SCH ×2 (07:29→17:09)
[2021-02-28] MEDS: Acetaminophen 325 MG Tab PO SCH ×3 (07:29→17:10)
[2021-02-28] MEDS: Potassium Chloride 20 MEQ Tab.ER PO SCH ×4 (07:30→19:21)
[2021-02-28] MEDS: Ferrous Sulfate 325 MG Tab PO SCH (07:30)
[2021-02-28] MEDS: Fludrocortisone 0.1 MG Tab PO SCH ×2 (07:30→19:21)
[2021-02-28] MEDS: Calcium Carbonate 750 MG Tab.Chew PO SCH (07:31)
[2021-02-28] MEDS: Niacin 500 MG Tab PO SCH ×2 (07:31→17:10)
[2021-02-28] MEDS: Furosemide 20 MG Tab PO SCH ×2 (07:31→11:41)
[2021-02-28] MEDS: Cyanocobalamin (Vitamin B12) 1,000 MCG Tab PO SCH (07:32)
[2021-02-28] MEDS: Cholecalciferol (Vitamin D3) 25 MCG Tab PO SCH (07:32)
--- NOTE | 2021-02-28 14:17 | PCM.PN ---
- General Info Date of Service: 02/28/21 Admission Dx/Problem (Free Text): 1. Myotonic dystrophy with secondary weakness 2. CHF 3. O2 dependent COPD Subjective Update: Patient complains of exacerbation of chronic bilateral lower leg and low back pain with no history of recent fall or injury. She also complains of nonspecific 7/10 left upper quadrant abdominal pain with small bowel movement this morning and excellent bowel movement yesterday. She denies any gross hematuria or other UTI symptoms. No recent history of other abdominal pain, heartburn, nausea, diarrhea, melena, gross hematochezia, or any food intolerance, including fatty foods, etc.. Functional Status: Reports: Pain Controlled, Tolerating Diet, Ambulating, Urinating, New Symptoms (Nonspecific abdominal pain today with additional slowly improving ingrown toenail of her right foot), Incentive Spirometry Pain Score: 5 - Review of Systems General: Reports: Weakness (Stable chronic). Denies: Fever, Fatigue, Malaise, Night Sweats, Appetite (Good) HEENT: Denies: Ear Pain, Eye Pain, Headaches, Post Nasal Drip, Sinus Congestion, Sore Throat, Rhinitis, Visual Changes Pulmonary: Reports: No Symptoms. Denies: Shortness of Breath, Pleuritic Chest Pain, Cough, Sputum, Hemoptysis, Wheezing Cardiovascular: Reports: Edema (Stable dependent). Denies: Chest Pain, Palpitations, Dyspnea on Exertion, Orthopnea, PND Gastrointestinal: Reports: Abdominal Pain (Nonspecific generalized). Denies: Constipation (Normal bowel movement this morning by her history), Decreased Appetite, Diarrhea, Difficulty Swallowing, Flatus, Hematochezia, Melena, Nausea, Vomiting Genitourinary: Reports: No Symptoms. Denies: Dysuria, Frequency, Burning, Pain, Urgency, Hematuria, Retention, Flank Pain Musculoskeletal: Reports: Foot Pain (Right foot? Ingrown toenail). Denies: Neck Pain, Shoulder Pain, Arm Pain, Back Pain, Joint Pain, Joint Swelling Skin: Reports: No Symptoms. Denies: Diaphoresis, Bruising, Rash Neurological: Reports: Difficulty Walking (Stable chronic), Weakness (Stable chronic). Denies: Confusion, Headache Psychiatric: Denies: Confusion, Depression, Anxiety, Agitation, Cravings, Hallucinations - Patient Data Vitals - Most Recent: Last Vital Signs Temp 36.2 C 02/28/21 08:00 Pulse 73 02/27/21 08:00 Resp 20 02/27/21 08:00 BP 102/57 L 02/27/21 08:00 Pulse Ox 97 02/27/21 08:00 Weight - Most Recent: 86.092 kg (Additional 3.3 kg weight gain over the last 2 months) I&O - Last 24 Hours: Intake & Output 02/27/21 02/28/21 02/28/21 22:59 06:59 14:59 Intake Total 640 960 Balance 640 960 Imaging Impressions - Last 24 Hours: None Lab Results Last 24 Hours: None [place] Results Last 24 Hours: None Med Orders - Current: Current Medications Acetaminophen (Acetaminophen 325 Mg Tab) 650 mg PO TID [facility] Last Admin: 02/28/21 11:41 Dose: 650 mg Documented by: Acetaminophen (Acetaminophen 325 Mg Tab) 650 mg PO Q4H PRN PRN Reason: Pain Last Admin: 02/24/21 04:24 Dose: 650 mg Documented by: Al Hydroxide/Mg Hydroxide (Aluminum Hydroxide/Magnesium Hydroxide/Simethicone Susp 30 Ml Cup) 30 ml PO Q4H PRN PRN Reason: Indigestion Last Admin: 12/24/20 11:15 Dose: 30 ml Documented by: Albuterol/Ipratropium (Albuterol/Ipratropium 3.0-0.5 Mg/3 Ml Neb Soln) 3 ml NEB Q4H PRN PRN Reason: Dyspnea Albuterol/Ipratropium (Albuterol/Ipratropium 3.0-0.5 Mg/3 Ml Neb Soln) 3 ml NEB QID [facility] Last Admin: 02/28/21 11:40 Dose: 3 ml Documented by: Artificial Tears (Polyvinyl Alcohol 1.4% Ophth Soln 15 Ml Bottle) 1 ml EYEBOTH QID PRN PRN Reason: Dry Eyes Last Admin: 09/08/20 14:02 Dose: 2 drop Documented by: Bisacodyl (Bisacodyl 5 Mg Tab) 5 mg PO DAILY PRN PRN Reason: Constipation Last Admin: 02/26/21 17:50 Dose: 5 mg Documented by: Calcium Carbonate/Glycine (Calcium Carbonate 750 Mg Tab.Chew) 1,500 mg PO DAILY [facility] Last Admin: 02/28/21 07:31 Dose: 1,500 mg Documented by: Cholecalciferol (Cholecalciferol (Vitamin D3) 25 Mcg Tab) 25 mcg PO DAILY [facility] Last Admin: 02/28/21 07:32 Dose: 25 mcg Documented by: Citalopram Hydrobromide (Citalopram 20 Mg Tab) 20 mg PO QAM [facility] Last Admin: 02/28/21 07:29 Dose: 20 mg Documented by: Cyanocobalamin (Cyanocobalamin (Vitamin B12) 1,000 Mcg Tab) 1,000 mcg PO QAM [facility] Last Admin: 02/28/21 07:32 Dose: 1,000 mcg Documented by: Docusate Sodium (Docusate Sodium 100 Mg Cap) 100 mg PO BID [facility] Last Admin: 02/28/21 07:29 Dose: 100 mg Documented by: Ferrous Sulfate (Ferrous Sulfate 325 Mg Tab) 325 mg PO WITHBREAKFAST [facility] Last Admin: 02/28/21 07:30 Dose: 325 mg Documented by: Fludrocortisone Acetate (Fludrocortisone 0.1 Mg Tab) 0.1 mg PO BEDTIME [facility] Last Admin: 02/27/21 19:43 Dose: 0.1 mg Documented by: Fludrocortisone Acetate (Fludrocortisone 0.1 Mg Tab) [facility] [place] Last Admin: 02/28/21 07:30 Dose: 0.2 mg Documented by: Furosemide (Furosemide 20 Mg Tab) 20 mg PO BID@0800,1200 [facility] Last Admin: 02/28/21 11:41 Dose: 20 mg Documented by: Guaifenesin/Dextromethorphan (Guaifenesin/Dextromethorphan 100-10 Mg/5 Ml Soln 10 Ml Cup) 10 ml PO Q4H PRN PRN Reason: Cough Last Admin: 12/16/20 02:24 Dose: 10 ml Documented by: Ibuprofen (Ibuprofen 600 Mg Tab) 600 mg PO Q6H PRN PRN Reason: Breakthrough Pain Last Admin: 02/28/21 07:28 Dose: 600 mg Documented by: Magnesium Hydroxide (Magnesium Hydroxide 400 Mg/5 Ml Susp 30 Ml Cup) 30 ml PO DAILY PRN PRN Reason: Constipation Last Admin: 10/03/20 19:43 Dose: 30 ml Documented by: Methyl Salicylate (Menthol/Methyl Salicylate 85 Gm Tube) 1 gm TOP QID PRN PRN Reason: Pain (mild 1-3) Last Admin: 02/27/21 19:43 Dose: 1 applic Documented by: Neomycin/Polymyxin/Bacitracin (Bacitracin/Neomycin/Polymyxin B Oint 0.9 Gm U/D Packet) 1 each TOP BID PRN PRN Reason: Wound Care Last Admin: 02/27/21 11:08 Dose: 1 each Documented by: Niacin (Niacin 500 Mg Tab) 500 mg PO BID [facility] Last Admin: 02/28/21 07:31 Dose: 500 mg Documented by: Levothyroxine Sodium (137 Mcg Tablets) 137 mcg PO BEDTIME [facility] Last Admin: 02/27/21 19:44 Dose: 137 mcg Documented by: Bupropion Xl 300mg (Tablets) 1 each PO BEDTIME [facility] Last Admin: 02/27/21 19:45 Dose: 1 each Documented by: Potassium Chloride (Potassium Chloride 20 Meq Tab.Er) 40 meq PO QID [facility] Last Admin: 02/28/21 11:41 Dose: 40 meq Documented by: Simvastatin (Simvastatin 10 Mg Tab) 10 mg PO BEDTIME [facility] Last Admin: 02/27/21 19:45 Dose: 10 mg Documented by: Discontinued Medications Albuterol/Ipratropium (Albuterol/Ipratropium 4 Gm Inhalation [place]) 0 gm INH QID [facility] Last Admin: 01/12/21 12:09 Dose: 1 puff Documented by: Albuterol/Ipratropium (Albuterol/Ipratropium 4 Gm Inhalation [place]) 0 gm INH Q4H PRN PRN Reason: Dyspnea Albuterol/Ipratropium (Albuterol/Ipratropium 3.0-0.5 Mg/3 Ml Neb Soln) 3 ml NEB Q4HRRT PRN PRN Reason: Dyspnea Last Admin: 07/04/20 08:04 Dose: 3 ml Documented by: Albuterol/Ipratropium (Albuterol/Ipratropium 3.0-0.5 Mg/3 Ml Neb Soln) 3 ml NEB QIDRT [facility] Last Admin: 09/27/20 08:09 Dose: 3 ml Documented by: COVID-19 Vaccine mRNA LNP-S (MOD) (PF) (Covid-19 Vacc, Mrna(Moderna)/Pf 100 Mcg/0.5 Ml Vial) 100 mcg IM .ONCE ONE Stop: 11/20/20 11:01 Last Admin: 11/20/20 11:40 Dose: 100 mcg Documented by: COVID-19 Vaccine mRNA LNP-S (MOD) (PF) (Covid-19 Vacc, Mrna(Moderna)/Pf 100 Mcg/0.5 Ml Vial) 100 mcg IM .ONCE ONE Stop: 12/18/20 15:01 Last Admin: 12/18/20 15:18 Dose: 100 mcg Documented by: Cephalexin (Cephalexin 250 Mg Cap) 250 mg PO BID [facility] Stop: 11/20/20 20:00 Cephalexin (Cephalexin 250 Mg Cap) 500 mg PO BID [facility] Stop: 11/20/20 08:01 Last Admin: 11/10/20 13:54 Dose: Not Given Documented by: Furosemide (Furosemide 20 Mg Tab) 20 mg PO BID@08,1400 [facility] Last Admin: 12/16/20 08:15 Dose: 20 mg Documented by: Furosemide (Furosemide 20 Mg Tab) 20 mg PO BID [facility] Last Admin: 08/14/20 08:52 Dose: 20 mg Documented by: Influenza Virus Vaccine (Flu Vacc [id number] 36mos Up/Pf 60 Mcg/0.5 Ml Syringe) 60 mcg IM .ONCE ONE Stop: 09/05/20 10:01 Last Admin: 09/05/20 10:16 Dose: 60 mcg Documented by: Neomycin/Polymyxin/Bacitracin (Bacitracin/Neomycin/Polymyxin B Oint 0.9 Gm U/D Packet) 1 each TOP BID [facility] Last Admin: 11/10/20 07:40 Dose: 1 each Documented by: Neomycin/Polymyxin/Bacitracin (Bacitracin/Neomycin/Polymyxin B Oint 0.9 Gm U/D Packet) 1 each TOP Q12H [facility] Last Admin: 11/21/20 19:35 Dose: 1 each Documented by: Nitrofurantoin Macrocrystals (Nitrofurantoin Monohydrate/Macrocrystalline 100 Mg Cap) 100 mg PO BID [facility] Stop: 02/18/21 08:01 Last Admin: 02/18/21 08:24 Dose: 100 mg Documented by: Cephalexin 500mg (Caps) 1 each PO BID [facility] Stop: 11/19/20 18:01 Last Admin: 11/19/20 17:39 Dose: 1 each Documented by: Omepraz[facility] ([facility] 20 Mg Cap.Cr) [facility] Stop: 01/01/21 17:31 Last Admin: 01/01/21 17:07 Dose: 20 mg Documented by: - Exam Quality Assessment: Supplemental Oxygen, DVT Prophylaxis. No: Central Line/PICC, Urine Catheter, Skin Breakdown, Restraints General: Oriented, Cooperative, No Acute Distress HEENT: Pupils Equal, Pupils Reactive, EOMI, Mucous Membr. Moist/[place]. No: Scleral Icterus Neck: Supple, No JVD, No Thyromegaly. No: Lymphadenopathy Lungs: Normal Respiratory Effort, Rales (Stable mild bilateral baseline). No: Rhonchi, Rub, Stridor, Wheezing Cardiovascular: Regular Rate, Regular Rhythm, No Murmurs. No: Gallops, Rubs GI/Abdominal Exam: Normal Bowel Sounds, Soft, No Organomegaly, No Distention, No Abnormal Bruit, No Mass, Tender (Nonspecific generalized mild in nature), Other (Obese). No: Guarding (Female) Exam: Deferred Back Exam: Normal Inspection, Full Range of Motion. No: CVA Tenderness (L), CVA Tenderness (R), Muscle Spasm Extremities: Normal Range of Motion, Non-Tender, Pedal Edema (Stable lymphedema of the lower extremities), Other (Nonspecific tenderness without evidence of significant local infection in the perineal region of digit number one of the right foot). No: Lurdes's Sign Peripheral Pulses: 2+: Radial (L), Radial (R) Skin: Other (As above) Wound/Incisions: Healing Well (Right great toe as above) Neurological: No New Focal Deficit, Other (Stable generalized weakness) Psy/Mental Status: Anxious (Mild), Depressed (Mild). No: Agitated, Hallucinations, Withdrawal Symptoms - Patient Data Result Diagrams: 12/27/20 06:53 12/27/20 06:53 Sepsis Event Note - Evaluation Sepsis Screening Result: No Definite Risk - Focused Exam Vital Signs: Vital Signs Temp 02/28/21 08:00 36.2 C - Problem List & Annotations (1) Steinert myotonic dystrophy syndrome SNOMED Code(s): 23650430 Code(s): G71.11 - MYOTONIC MUSCULAR DYSTROPHY Status: Chronic Priority: Medium Current Visit: Yes Annotation/Comment:: Stable by history and today's exam. Physical therapy in effect. Continue current medical therapy. Repeat logolineup d work scheduled for 12/27/2020 was once again reviewed today. (2) CHF, Congestive heart failure SNOMED Code(s): 59402453 Code(s): I50.9 - HEART FAILURE, UNSPECIFIED Status: Chronic Priority: Medium Current Visit: Yes Annotation/Comment:: Patient is still O2 dependent with O2 sat of 96-97% on 3 L/min by nasal cannula. No recent chest pain or anginal type symptoms. Note previous progressive nonspecific bilateral lower lo be atelectasis versus nonspecific changes, right greater than left, with CT scan of the chest performed on 12/29/19. Chest x-ray, PA and lateral, on 04/25/20 showed stable bilateral lower lobe atelectasis with no significant evidence of CHF. Previous CT scan in December as above did show evidence of atelectasis and mild pleural effusions consistent with CHF. No significant CHF by clinical exam today. Yearly blood work, EKG, chest x-ray, etc. were conducted on 04/25/20 with further blood work to be conducted tomorrow as above. Improved/stable lateral wall cardiac ischemia by EKG since April 2019 with resolved first-degree AV block and stable complete bifascicular bundle-branch block. Stable dependent edema with the patient having a mildly persistent weight gain during the last couple of months. The patient previously intentionally lost 13.7 kg based on exam in August 2019. Note previous dietary noncompliance, however much improved. Previous discontinuation of high protein Glucerna supplements as snacks secondary to her previous weight gain. Dietary consultation in effect. Activity level is overall low. An echocardiogram had also been performed on 12/28/19 with excellent ejection fraction of 5060 percent.The patient's CODE STATUS was previously addressed per request from the nursing staff with the patient wishing to continue to be a FULL CODE. Continue to observe closely. Note previous history of PVCs, complete right bundle branch block/bifascicular bundle-branch block, first-degree AV block, severe dyslipidemia hypokalemia, hypophosphatemia, and hyponatremia. Mild persistent hypertriglyceridemia with borderline hypernatremia on 04/25. Note normal magnesium on the potassium, and phosphate levels on 04/25. Continue to observe for now with no further change in medical therapy. Further cardiology workup and/or consultation depending on her clinical course. Note Increase of her Lasix therapy, etc. on 12/21/19 with overall good clinical results. (3) Tardive dyskinesia SNOMED Code(s): 521408044 Code(s): G24.01 - DRUG INDUCED SUBACUTE DYSKINESIA Status: Chronic Priority: Medium Current Visit: Yes Annotation/Comment:: Stable by history. Her perioral tardive dyskinesia actually increased after discontinuation of previous chronic Reglan therapy with no other aggravating medications noted. Neurological status is otherwise stable. Note that patient does have complete dentures uppers and lowers, which does tend to aggravate her problem. No significant clinical relevance at this time with no change in medical therapy for now. (4) COPD (chronic obstructive pulmonary disease) SNOMED Code(s): 16135851 Code(s): J44.9 - CHRONIC OBSTRUCTIVE PULMONARY DISEASE, UNSPECIFIED Status: Chronic Priority: Medium Current Visit: Yes Qualifiers: COPD type: emphysema Emphysema type: panlobular Qualified Code(s): J43.1 - Panlobular emphysema Annotation/Comment:: As above. O2 dependent COPD stable by history with no bronchitic symptoms at this time. Continue current medical therapy. Note chronic bilateral lower lobe atelectasis with incentive spirometry and current O2 therapy at 3 L/m by nasal cannula as above. No evidence of pneumonia or signi ficant bronchitis despite chest x-ray report on 04/25/20. Patient does have a previous history of distant postoperative respiratory distress, although no complications after previous dental surgery. Patient has been changed from previous nebulizer therapy to inhalers secondary to current COVID-19 pandemic. (5) Hyperlipidemia SNOMED Code(s): 70861131 Code(s): E78.5 - HYPERLIPIDEMIA, UNSPECIFIED Status: Chronic Priority: Medium Current Visit: Yes Annotation/Comment:: As above. Previous history of severe dyslipidemia with aggressive medical therapy at this time. Dietary compliance has improved with intentional weight loss as above. No change in medical therapy for now with previous history of CPK elevation. (6) Hypothyroidism SNOMED Code(s): 64129625 Code(s): E03.9 - HYPOTHYROIDISM, UNSPECIFIED Status: Chronic Priority: Medium Current Visit: Yes Annotation/Comment:: TSH normal on 04/25/20. No other thyroid type symptoms. (7) Mixed anxiety and depressive disorder SNOMED Code(s): 225419320 Code(s): F41.8 - OTHER SPECIFIED ANXIETY DISORDERS Status: Chronic Priority: Medium Current Visit: Yes Annotation/Comment:: Stable by history from the patient and nursing staff, although mild persistent anxious and depressive affect today. Observe for now. Previous worsening of her anxiety depression disorder with Wellbutrin SR therapy increased on 12/21/19. By my c linical evaluation her symptoms have improved since that time, although she still needs to be watched closely by nursing staff, etc.. Patient is still relatively active with physical therapy, however she is still often alone in her room. The patient was once again encouraged to become more active with social activities, etc. with nursing staff also encouraged to help the patient be more interactive. (8) Osteoarthritis SNOMED Code(s): 773489548 Code(s): M19.90 - UNSPECIFIED OSTEOARTHRITIS, UNSPECIFIED SITE Status: Chronic Priority: Medium Current Visit: Yes Annotation/Comment:: Recently stable by history after reinitiation of ibuprofen, although nonspecific abdominal complaints at this time. Continue to observe closely. Note previous discontinuation of Ultram. PT in effect as above. Note status post bilateral a nkle ORIF secondary to fractures. Previous recurrent falls in February 2019 have improved with no recent significant falls or injuries. Questionable right foot ingrown toenail. Continue topical therapy for now. (9) Vitamin B12 deficiency (non anemic) SNOMED Code(s): 54642858 Code(s): E53.8 - DEFICIENCY OF OTHER SPECIFIED B GROUP VITAMINS Status: Chronic Priority: Medium Current Visit: Yes Annotation/Comment:: Persistent macrocytosis as above with normal folic acid and vitamin B 12 level on 04/25/2020. Observe for now. (10) Hypoalbuminemia SNOMED Code(s): 785184798 Code(s): E88.09 - [facility] DISORDERS OF PLASMA-PROTEIN METABOLISM, NEC Status: Chronic Priority: Medium Current Visit: Yes Annotation/Comment:: Chronic problem. Glucerna high-protein has been discontinued per recommendations from dietitian secondary to persistent weight gain. Continue high-protein diet as above. Observe for now. (11) Peptic reflux disease SNOMED Code(s): 885130022 Code(s): K21.9 - GASTRO-ESOPHAGEAL REFLUX DISEASE WITHOUT ESOPHAGITIS Status: Chronic Priority: Medium Current Visit: Yes Annotation/Comment:: Mild exacerbation today. Previous chronic of Prilosec and Pepcid have long since been discontinued secondary to her previous history of refractory C. difficile colitis. Secondary to patient's current ibuprofen use and her abdominal complaints Prilosec was initiated on a twice daily basis for 1 week only in December. Additional amylase and lipase ordered for 2/3 with additional x-rays, etc. depending on her clinical course. - Problem List Review Problem List Initiated/Reviewed/Updated: Yes - Assessment Assessment:: As above. - Plan Plan:: As above. Extensive precautions were given to the patient, who is in agreement with the treatment plan. The patient will be recertified for an additional 60 days with long-term chronic swing bed care required secondary to multiple health issues as above. Update yearly blood work, etc. on 05/01/2021 at time of next swing bed rounds.
[2021-02-28] MEDS: Bacitracin/Neomycin/Polymyxin B Oint 0.9 GM U/D Packet TOP PRN (15:12)
[2021-02-28] MEDS: BUPROPION 300 MG PO SCH (19:21)
[2021-02-28] MEDS: LEVOTHYROXINE SODIUM 137 MCG PO SCH (19:21)
[2021-02-28] MEDS: Simvastatin 10 MG Tab PO SCH (19:22)
[2021-03-01] MEDS: Acetaminophen 325 MG Tab PO PRN (01:05)
[2021-03-01] MEDS: Fludrocortisone 0.1 MG Tab PO SCH ×2 (08:00→19:28)
[2021-03-01] MEDS: Citalopram 20 MG Tab PO SCH (08:00)
[2021-03-01] MEDS: Albuterol/Ipratropium 3.0-0.5 MG/3 ML Neb Soln NEB SCH ×4 (08:00→19:27)
[2021-03-01] MEDS: Docusate Sodium 100 MG Cap PO SCH ×2 (08:01→17:41)
[2021-03-01] MEDS: Potassium Chloride 20 MEQ Tab.ER PO SCH ×4 (08:01→19:28)
[2021-03-01] MEDS: Furosemide 20 MG Tab PO SCH ×2 (08:01→11:15)
[2021-03-01] MEDS: Niacin 500 MG Tab PO SCH ×2 (08:02→17:41)
[2021-03-01] MEDS: Ferrous Sulfate 325 MG Tab PO SCH (08:02)
[2021-03-01] MEDS: Calcium Carbonate 750 MG Tab.Chew PO SCH (08:03)
[2021-03-01] MEDS: Cholecalciferol (Vitamin D3) 25 MCG Tab PO SCH (08:03)
[2021-03-01] MEDS: Acetaminophen 325 MG Tab PO SCH ×3 (08:03→17:41)
[2021-03-01] MEDS: Cyanocobalamin (Vitamin B12) 1,000 MCG Tab PO SCH (08:04)
[2021-03-01] MEDS: BUPROPION 300 MG PO SCH (19:29)
[2021-03-01] MEDS: Simvastatin 10 MG Tab PO SCH (19:29)
[2021-03-01] MEDS: LEVOTHYROXINE SODIUM 137 MCG PO SCH (19:29)
[2021-03-02] MEDS: Citalopram 20 MG Tab PO SCH (08:18)
[2021-03-02] MEDS: Albuterol/Ipratropium 3.0-0.5 MG/3 ML Neb Soln NEB SCH ×4 (08:19→19:56)
[2021-03-02] MEDS: Docusate Sodium 100 MG Cap PO SCH ×2 (08:19→17:40)
[2021-03-02] MEDS: Ferrous Sulfate 325 MG Tab PO SCH (08:19)
[2021-03-02] MEDS: Niacin 500 MG Tab PO SCH ×2 (08:20→17:40)
[2021-03-02] MEDS: Furosemide 20 MG Tab PO SCH ×2 (08:20→11:23)
[2021-03-02] MEDS: Potassium Chloride 20 MEQ Tab.ER PO SCH ×4 (08:20→19:58)
[2021-03-02] MEDS: Fludrocortisone 0.1 MG Tab PO SCH ×2 (08:20→19:57)
[2021-03-02] MEDS: Calcium Carbonate 750 MG Tab.Chew PO SCH (08:21)
[2021-03-02] MEDS: Acetaminophen 325 MG Tab PO SCH ×3 (08:22→17:40)
[2021-03-02] MEDS: Cyanocobalamin (Vitamin B12) 1,000 MCG Tab PO SCH (08:23)
[2021-03-02] MEDS: Cholecalciferol (Vitamin D3) 25 MCG Tab PO SCH (08:23)
[2021-03-02] MEDS: Simvastatin 10 MG Tab PO SCH (19:58)
[2021-03-02] MEDS: BUPROPION 300 MG PO SCH (19:58)
[2021-03-02] MEDS: LEVOTHYROXINE SODIUM 137 MCG PO SCH (19:58)
[2021-03-02] MEDS: Ibuprofen 600 MG Tab PO PRN (19:59)
[2021-03-02] MEDS: Menthol/Methyl Salicylate 85 GM Tube TOP PRN (20:00)
[2021-03-02] MEDS: Bacitracin/Neomycin/Polymyxin B Oint 0.9 GM U/D Packet TOP PRN (20:00)
[2021-03-03] MEDS: Ibuprofen 600 MG Tab PO PRN ×2 (05:45→19:50)
[2021-03-03] MEDS: Fludrocortisone 0.1 MG Tab PO SCH ×2 (07:45→19:48)
[2021-03-03] MEDS: Potassium Chloride 20 MEQ Tab.ER PO SCH ×4 (07:45→19:48)
[2021-03-03] MEDS: Citalopram 20 MG Tab PO SCH (07:45)
[2021-03-03] MEDS: Furosemide 20 MG Tab PO SCH ×2 (07:45→11:18)
[2021-03-03] MEDS: Docusate Sodium 100 MG Cap PO SCH ×2 (07:46→17:32)
[2021-03-03] MEDS: Niacin 500 MG Tab PO SCH ×2 (07:46→17:32)
[2021-03-03] MEDS: Calcium Carbonate 750 MG Tab.Chew PO SCH (07:46)
[2021-03-03] MEDS: Albuterol/Ipratropium 3.0-0.5 MG/3 ML Neb Soln NEB SCH ×4 (07:46→19:48)
[2021-03-03] MEDS: Ferrous Sulfate 325 MG Tab PO SCH (07:46)
[2021-03-03] MEDS: Cyanocobalamin (Vitamin B12) 1,000 MCG Tab PO SCH (07:47)
[2021-03-03] MEDS: Acetaminophen 325 MG Tab PO SCH ×3 (07:47→17:32)
[2021-03-03] MEDS: Cholecalciferol (Vitamin D3) 25 MCG Tab PO SCH (07:47)
[2021-03-03] MEDS: LEVOTHYROXINE SODIUM 137 MCG PO SCH (19:48)
[2021-03-03] MEDS: Simvastatin 10 MG Tab PO SCH (19:49)
[2021-03-03] MEDS: BUPROPION 300 MG PO SCH (19:49)
[2021-03-03] MEDS: Menthol/Methyl Salicylate 85 GM Tube TOP PRN (19:50)
[2021-03-04] MEDS: Ferrous Sulfate 325 MG Tab PO SCH (07:26)
[2021-03-04] MEDS: Albuterol/Ipratropium 3.0-0.5 MG/3 ML Neb Soln NEB SCH ×4 (07:26→19:48)
[2021-03-04] MEDS: Cholecalciferol (Vitamin D3) 25 MCG Tab PO SCH (07:26)
[2021-03-04] MEDS: Docusate Sodium 100 MG Cap PO SCH ×2 (07:26→17:51)
[2021-03-04] MEDS: Cyanocobalamin (Vitamin B12) 1,000 MCG Tab PO SCH (07:27)
[2021-03-04] MEDS: Calcium Carbonate 750 MG Tab.Chew PO SCH (07:27)
[2021-03-04] MEDS: Acetaminophen 325 MG Tab PO SCH ×3 (07:27→17:50)
[2021-03-04] MEDS: Niacin 500 MG Tab PO SCH ×2 (07:27→17:50)
[2021-03-04] MEDS: Furosemide 20 MG Tab PO SCH ×2 (07:28→11:27)
[2021-03-04] MEDS: Fludrocortisone 0.1 MG Tab PO SCH ×2 (07:28→19:48)
[2021-03-04] MEDS: Citalopram 20 MG Tab PO SCH (07:28)
[2021-03-04] MEDS: Potassium Chloride 20 MEQ Tab.ER PO SCH ×4 (07:28→19:48)
[2021-03-04] MEDS: LEVOTHYROXINE SODIUM 137 MCG PO SCH (19:48)
[2021-03-04] MEDS: Simvastatin 10 MG Tab PO SCH (19:49)
[2021-03-04] MEDS: BUPROPION 300 MG PO SCH (19:49)
[2021-03-04] MEDS: Ibuprofen 600 MG Tab PO PRN (19:49)
[2021-03-04] MEDS: Menthol/Methyl Salicylate 85 GM Tube TOP PRN (19:50)
[2021-03-05] MEDS: Albuterol/Ipratropium 3.0-0.5 MG/3 ML Neb Soln NEB SCH ×4 (07:28→19:43)
[2021-03-05] MEDS: Citalopram 20 MG Tab PO SCH (07:28)
[2021-03-05] MEDS: Docusate Sodium 100 MG Cap PO SCH ×2 (07:28→17:06)
[2021-03-05] MEDS: Fludrocortisone 0.1 MG Tab PO SCH ×2 (07:29→19:46)
[2021-03-05] MEDS: Ferrous Sulfate 325 MG Tab PO SCH (07:29)
[2021-03-05] MEDS: Potassium Chloride 20 MEQ Tab.ER PO SCH ×4 (07:29→19:46)
[2021-03-05] MEDS: Niacin 500 MG Tab PO SCH ×2 (07:30→17:06)
[2021-03-05] MEDS: Calcium Carbonate 750 MG Tab.Chew PO SCH (07:30)
[2021-03-05] MEDS: Acetaminophen 325 MG Tab PO SCH ×3 (07:30→17:06)
[2021-03-05] MEDS: Furosemide 20 MG Tab PO SCH ×2 (07:30→11:07)
[2021-03-05] MEDS: Cholecalciferol (Vitamin D3) 25 MCG Tab PO SCH (07:31)
[2021-03-05] MEDS: Ibuprofen 600 MG Tab PO PRN (07:31)
[2021-03-05] MEDS: Cyanocobalamin (Vitamin B12) 1,000 MCG Tab PO SCH (07:31)
[2021-03-05] MEDS: Bacitracin/Neomycin/Polymyxin B Oint 0.9 GM U/D Packet TOP PRN (11:10)
[2021-03-05] MEDS: LEVOTHYROXINE SODIUM 137 MCG PO SCH (19:46)
[2021-03-05] MEDS: BUPROPION 300 MG PO SCH (19:46)
[2021-03-05] MEDS: Simvastatin 10 MG Tab PO SCH (19:47)
[2021-03-05] MEDS: Menthol/Methyl Salicylate 85 GM Tube TOP PRN (19:47)
[2021-03-06] MEDS: Citalopram 20 MG Tab PO SCH (07:41)
[2021-03-06] MEDS: Docusate Sodium 100 MG Cap PO SCH ×2 (07:41→17:09)
[2021-03-06] MEDS: Bacitracin/Neomycin/Polymyxin B Oint 0.9 GM U/D Packet TOP PRN (07:41)
[2021-03-06] MEDS: Fludrocortisone 0.1 MG Tab PO SCH ×2 (07:42→19:46)
[2021-03-06] MEDS: Potassium Chloride 20 MEQ Tab.ER PO SCH ×4 (07:42→19:46)
[2021-03-06] MEDS: Ferrous Sulfate 325 MG Tab PO SCH (07:42)
[2021-03-06] MEDS: Albuterol/Ipratropium 3.0-0.5 MG/3 ML Neb Soln NEB SCH ×4 (07:42→19:45)
[2021-03-06] MEDS: Acetaminophen 325 MG Tab PO SCH ×3 (07:43→17:10)
[2021-03-06] MEDS: Niacin 500 MG Tab PO SCH ×2 (07:43→17:10)
[2021-03-06] MEDS: Calcium Carbonate 750 MG Tab.Chew PO SCH (07:43)
[2021-03-06] MEDS: Furosemide 20 MG Tab PO SCH ×2 (07:43→11:05)
[2021-03-06] MEDS: Cholecalciferol (Vitamin D3) 25 MCG Tab PO SCH (07:44)
[2021-03-06] MEDS: Cyanocobalamin (Vitamin B12) 1,000 MCG Tab PO SCH (07:44)
[2021-03-06] MEDS: Ibuprofen 600 MG Tab PO PRN ×2 (07:45→19:47)
[2021-03-06] MEDS: LEVOTHYROXINE SODIUM 137 MCG PO SCH (19:46)
[2021-03-06] MEDS: BUPROPION 300 MG PO SCH (19:47)
[2021-03-06] MEDS: Simvastatin 10 MG Tab PO SCH (19:47)
[2021-03-06] MEDS: Menthol/Methyl Salicylate 85 GM Tube TOP PRN (19:48)
[2021-03-07] MEDS: Citalopram 20 MG Tab PO SCH (07:42)
[2021-03-07] MEDS: Docusate Sodium 100 MG Cap PO SCH ×2 (07:42→17:02)
[2021-03-07] MEDS: Ferrous Sulfate 325 MG Tab PO SCH (07:42)
[2021-03-07] MEDS: Albuterol/Ipratropium 3.0-0.5 MG/3 ML Neb Soln NEB SCH ×4 (07:42→19:47)
[2021-03-07] MEDS: Furosemide 20 MG Tab PO SCH ×2 (07:43→11:16)
[2021-03-07] MEDS: Potassium Chloride 20 MEQ Tab.ER PO SCH ×4 (07:43→19:49)
[2021-03-07] MEDS: Fludrocortisone 0.1 MG Tab PO SCH ×2 (07:43→19:49)
[2021-03-07] MEDS: Niacin 500 MG Tab PO SCH ×2 (07:43→17:02)
[2021-03-07] MEDS: Calcium Carbonate 750 MG Tab.Chew PO SCH (07:44)
[2021-03-07] MEDS: Cyanocobalamin (Vitamin B12) 1,000 MCG Tab PO SCH (07:44)
[2021-03-07] MEDS: Acetaminophen 325 MG Tab PO SCH ×3 (07:44→17:03)
[2021-03-07] MEDS: Cholecalciferol (Vitamin D3) 25 MCG Tab PO SCH (07:45)
[2021-03-07] MEDS: LEVOTHYROXINE SODIUM 137 MCG PO SCH (19:49)
[2021-03-07] MEDS: BUPROPION 300 MG PO SCH (19:50)
[2021-03-07] MEDS: Menthol/Methyl Salicylate 85 GM Tube TOP PRN (19:50)
[2021-03-07] MEDS: Simvastatin 10 MG Tab PO SCH (19:50)
[2021-03-07] MEDS: Ibuprofen 600 MG Tab PO PRN (19:51)
[2021-03-08] MEDS: Citalopram 20 MG Tab PO SCH (08:16)
[2021-03-08] MEDS: Fludrocortisone 0.1 MG Tab PO SCH ×2 (08:16→19:47)
[2021-03-08] MEDS: Furosemide 20 MG Tab PO SCH ×2 (08:16→12:00)
[2021-03-08] MEDS: Potassium Chloride 20 MEQ Tab.ER PO SCH ×4 (08:17→19:48)
[2021-03-08] MEDS: Docusate Sodium 100 MG Cap PO SCH ×2 (08:17→18:33)
[2021-03-08] MEDS: Albuterol/Ipratropium 3.0-0.5 MG/3 ML Neb Soln NEB SCH ×4 (08:18→19:47)
[2021-03-08] MEDS: Niacin 500 MG Tab PO SCH ×2 (08:19→18:33)
[2021-03-08] MEDS: Calcium Carbonate 750 MG Tab.Chew PO SCH (08:19)
[2021-03-08] MEDS: Ferrous Sulfate 325 MG Tab PO SCH (08:19)
[2021-03-08] MEDS: Acetaminophen 325 MG Tab PO SCH ×3 (08:20→18:34)
[2021-03-08] MEDS: Cyanocobalamin (Vitamin B12) 1,000 MCG Tab PO SCH (08:21)
[2021-03-08] MEDS: Cholecalciferol (Vitamin D3) 25 MCG Tab PO SCH (08:21)
[2021-03-08] MEDS: LEVOTHYROXINE SODIUM 137 MCG PO SCH (19:48)
[2021-03-08] MEDS: Simvastatin 10 MG Tab PO SCH (19:48)
[2021-03-08] MEDS: BUPROPION 300 MG PO SCH (19:48)
[2021-03-08] MEDS: Menthol/Methyl Salicylate 85 GM Tube TOP PRN (19:49)
[2021-03-08] MEDS: Ibuprofen 600 MG Tab PO PRN (19:50)
[2021-03-09] MEDS: Ibuprofen 600 MG Tab PO PRN ×2 (04:16→19:58)
[2021-03-09] MEDS: Citalopram 20 MG Tab PO SCH (08:13)
[2021-03-09] MEDS: Fludrocortisone 0.1 MG Tab PO SCH ×2 (08:13→19:56)
[2021-03-09] MEDS: Albuterol/Ipratropium 3.0-0.5 MG/3 ML Neb Soln NEB SCH ×4 (08:14→19:56)
[2021-03-09] MEDS: Furosemide 20 MG Tab PO SCH ×2 (08:14→12:03)
[2021-03-09] MEDS: Potassium Chloride 20 MEQ Tab.ER PO SCH ×4 (08:14→19:57)
[2021-03-09] MEDS: Ferrous Sulfate 325 MG Tab PO SCH (08:15)
[2021-03-09] MEDS: Docusate Sodium 100 MG Cap PO SCH ×2 (08:15→17:57)
[2021-03-09] MEDS: Niacin 500 MG Tab PO SCH ×2 (08:15→17:57)
[2021-03-09] MEDS: Acetaminophen 325 MG Tab PO SCH ×3 (08:16→17:58)
[2021-03-09] MEDS: Calcium Carbonate 750 MG Tab.Chew PO SCH (08:16)
[2021-03-09] MEDS: Cyanocobalamin (Vitamin B12) 1,000 MCG Tab PO SCH (08:17)
[2021-03-09] MEDS: Cholecalciferol (Vitamin D3) 25 MCG Tab PO SCH (08:18)
[2021-03-09] MEDS: Simvastatin 10 MG Tab PO SCH (19:57)
[2021-03-09] MEDS: LEVOTHYROXINE SODIUM 137 MCG PO SCH (19:57)
[2021-03-09] MEDS: BUPROPION 300 MG PO SCH (19:57)
[2021-03-10] MEDS: Fludrocortisone 0.1 MG Tab PO SCH ×2 (08:15→19:36)
[2021-03-10] MEDS: Furosemide 20 MG Tab PO SCH ×2 (08:15→12:15)
[2021-03-10] MEDS: Potassium Chloride 20 MEQ Tab.ER PO SCH ×4 (08:15→19:36)
[2021-03-10] MEDS: Citalopram 20 MG Tab PO SCH (08:15)
[2021-03-10] MEDS: Docusate Sodium 100 MG Cap PO SCH ×2 (08:16→17:21)
[2021-03-10] MEDS: Albuterol/Ipratropium 3.0-0.5 MG/3 ML Neb Soln NEB SCH ×4 (08:16→19:34)
[2021-03-10] MEDS: Calcium Carbonate 750 MG Tab.Chew PO SCH (08:17)
[2021-03-10] MEDS: Ferrous Sulfate 325 MG Tab PO SCH (08:17)
[2021-03-10] MEDS: Niacin 500 MG Tab PO SCH ×2 (08:17→17:22)
[2021-03-10] MEDS: Acetaminophen 325 MG Tab PO SCH ×3 (08:18→17:22)
[2021-03-10] MEDS: Cyanocobalamin (Vitamin B12) 1,000 MCG Tab PO SCH (08:19)
[2021-03-10] MEDS: Cholecalciferol (Vitamin D3) 25 MCG Tab PO SCH (08:19)
[2021-03-10] MEDS: BUPROPION 300 MG PO SCH (19:37)
[2021-03-10] MEDS: LEVOTHYROXINE SODIUM 137 MCG PO SCH (19:37)
[2021-03-10] MEDS: Simvastatin 10 MG Tab PO SCH (19:37)
[2021-03-10] MEDS: Menthol/Methyl Salicylate 85 GM Tube TOP PRN (19:38)
[2021-03-11] MEDS: Citalopram 20 MG Tab PO SCH (07:40)
[2021-03-11] MEDS: Fludrocortisone 0.1 MG Tab PO SCH ×2 (07:41→19:31)
[2021-03-11] MEDS: Furosemide 20 MG Tab PO SCH ×2 (07:41→11:23)
[2021-03-11] MEDS: Potassium Chloride 20 MEQ Tab.ER PO SCH ×4 (07:41→19:31)
[2021-03-11] MEDS: Calcium Carbonate 750 MG Tab.Chew PO SCH (07:42)
[2021-03-11] MEDS: Docusate Sodium 100 MG Cap PO SCH ×2 (07:42→18:11)
[2021-03-11] MEDS: Ferrous Sulfate 325 MG Tab PO SCH (07:42)
[2021-03-11] MEDS: Niacin 500 MG Tab PO SCH ×2 (07:42→18:11)
[2021-03-11] MEDS: Acetaminophen 325 MG Tab PO SCH ×3 (07:43→18:12)
[2021-03-11] MEDS: Cholecalciferol (Vitamin D3) 25 MCG Tab PO SCH (07:43)
[2021-03-11] MEDS: Cyanocobalamin (Vitamin B12) 1,000 MCG Tab PO SCH (07:44)
[2021-03-11] MEDS: Albuterol/Ipratropium 3.0-0.5 MG/3 ML Neb Soln NEB SCH ×4 (07:45→19:27)
[2021-03-11] MEDS: BUPROPION 300 MG PO SCH (19:32)
[2021-03-11] MEDS: LEVOTHYROXINE SODIUM 137 MCG PO SCH (19:32)
[2021-03-11] MEDS: Simvastatin 10 MG Tab PO SCH (19:32)
[2021-03-11] MEDS: Menthol/Methyl Salicylate 85 GM Tube TOP PRN (19:33)
[2021-03-12] MEDS: Furosemide 20 MG Tab PO SCH ×2 (07:46→11:28)
[2021-03-12] MEDS: Fludrocortisone 0.1 MG Tab PO SCH ×2 (07:46→19:48)
[2021-03-12] MEDS: Citalopram 20 MG Tab PO SCH (07:46)
[2021-03-12] MEDS: Potassium Chloride 20 MEQ Tab.ER PO SCH ×4 (07:46→19:49)
[2021-03-12] MEDS: Docusate Sodium 100 MG Cap PO SCH ×2 (07:47→17:17)
[2021-03-12] MEDS: Albuterol/Ipratropium 3.0-0.5 MG/3 ML Neb Soln NEB SCH ×4 (07:47→19:48)
[2021-03-12] MEDS: Ferrous Sulfate 325 MG Tab PO SCH (07:47)
[2021-03-12] MEDS: Calcium Carbonate 750 MG Tab.Chew PO SCH (07:48)
[2021-03-12] MEDS: Acetaminophen 325 MG Tab PO SCH ×3 (07:49→17:18)
[2021-03-12] MEDS: Niacin 500 MG Tab PO SCH ×2 (07:49→17:18)
[2021-03-12] MEDS: Cyanocobalamin (Vitamin B12) 1,000 MCG Tab PO SCH (07:50)
[2021-03-12] MEDS: Cholecalciferol (Vitamin D3) 25 MCG Tab PO SCH (07:50)
[2021-03-12] MEDS: Ibuprofen 600 MG Tab PO PRN (17:19)
[2021-03-12] MEDS: LEVOTHYROXINE SODIUM 137 MCG PO SCH (19:49)
[2021-03-12] MEDS: Simvastatin 10 MG Tab PO SCH (19:50)
[2021-03-12] MEDS: BUPROPION 300 MG PO SCH (19:50)
[2021-03-12] MEDS: Bacitracin/Neomycin/Polymyxin B Oint 0.9 GM U/D Packet TOP PRN (20:04)
[2021-03-13] MEDS: Fludrocortisone 0.1 MG Tab PO SCH ×2 (08:25→19:47)
[2021-03-13] MEDS: Citalopram 20 MG Tab PO SCH (08:25)
[2021-03-13] MEDS: Furosemide 20 MG Tab PO SCH ×2 (08:25→12:05)
[2021-03-13] MEDS: Potassium Chloride 20 MEQ Tab.ER PO SCH ×4 (08:25→19:48)
[2021-03-13] MEDS: Albuterol/Ipratropium 3.0-0.5 MG/3 ML Neb Soln NEB SCH ×4 (08:26→19:47)
[2021-03-13] MEDS: Docusate Sodium 100 MG Cap PO SCH ×2 (08:26→17:19)
[2021-03-13] MEDS: Ferrous Sulfate 325 MG Tab PO SCH (08:26)
[2021-03-13] MEDS: Calcium Carbonate 750 MG Tab.Chew PO SCH (08:27)
[2021-03-13] MEDS: Niacin 500 MG Tab PO SCH ×2 (08:27→17:19)
[2021-03-13] MEDS: Cholecalciferol (Vitamin D3) 25 MCG Tab PO SCH (08:27)
[2021-03-13] MEDS: Cyanocobalamin (Vitamin B12) 1,000 MCG Tab PO SCH (08:28)
[2021-03-13] MEDS: Acetaminophen 325 MG Tab PO SCH ×3 (08:28→17:19)
[2021-03-13] MEDS: Simvastatin 10 MG Tab PO SCH (19:48)
[2021-03-13] MEDS: Menthol/Methyl Salicylate 85 GM Tube TOP PRN (19:48)
[2021-03-13] MEDS: BUPROPION 300 MG PO SCH (19:48)
[2021-03-13] MEDS: LEVOTHYROXINE SODIUM 137 MCG PO SCH (19:48)
[2021-03-13] MEDS: Bacitracin/Neomycin/Polymyxin B Oint 0.9 GM U/D Packet TOP PRN (20:39)
[2021-03-14] MEDS: Albuterol/Ipratropium 3.0-0.5 MG/3 ML Neb Soln NEB SCH ×4 (07:26→19:38)
[2021-03-14] MEDS: Citalopram 20 MG Tab PO SCH (07:28)
[2021-03-14] MEDS: Furosemide 20 MG Tab PO SCH ×2 (07:28→11:55)
[2021-03-14] MEDS: Fludrocortisone 0.1 MG Tab PO SCH ×2 (07:28→19:39)
[2021-03-14] MEDS: Cholecalciferol (Vitamin D3) 25 MCG Tab PO SCH (07:29)
[2021-03-14] MEDS: Potassium Chloride 20 MEQ Tab.ER PO SCH ×4 (07:29→19:39)
[2021-03-14] MEDS: Niacin 500 MG Tab PO SCH ×2 (07:29→17:27)
[2021-03-14] MEDS: Docusate Sodium 100 MG Cap PO SCH ×2 (07:29→17:27)
[2021-03-14] MEDS: Ferrous Sulfate 325 MG Tab PO SCH (07:30)
[2021-03-14] MEDS: Cyanocobalamin (Vitamin B12) 1,000 MCG Tab PO SCH (07:30)
[2021-03-14] MEDS: Calcium Carbonate 750 MG Tab.Chew PO SCH (07:30)
[2021-03-14] MEDS: Acetaminophen 325 MG Tab PO SCH ×3 (07:31→17:27)
[2021-03-14] MEDS: BUPROPION 300 MG PO SCH (19:39)
[2021-03-14] MEDS: LEVOTHYROXINE SODIUM 137 MCG PO SCH (19:39)
[2021-03-14] MEDS: Simvastatin 10 MG Tab PO SCH (19:39)
[2021-03-14] MEDS: Menthol/Methyl Salicylate 85 GM Tube TOP PRN (19:40)
[2021-03-14] MEDS: Ibuprofen 600 MG Tab PO PRN (19:40)
[2021-03-15] MEDS: Albuterol/Ipratropium 3.0-0.5 MG/3 ML Neb Soln NEB SCH ×4 (07:35→19:47)
[2021-03-15] MEDS: Docusate Sodium 100 MG Cap PO SCH ×2 (07:35→17:54)
[2021-03-15] MEDS: Citalopram 20 MG Tab PO SCH (07:35)
[2021-03-15] MEDS: Potassium Chloride 20 MEQ Tab.ER PO SCH ×4 (07:36→19:49)
[2021-03-15] MEDS: Fludrocortisone 0.1 MG Tab PO SCH ×2 (07:36→19:48)
[2021-03-15] MEDS: Furosemide 20 MG Tab PO SCH ×2 (07:36→11:42)
[2021-03-15] MEDS: Ferrous Sulfate 325 MG Tab PO SCH (07:39)
[2021-03-15] MEDS: Acetaminophen 325 MG Tab PO SCH ×3 (07:40→17:54)
[2021-03-15] MEDS: Cholecalciferol (Vitamin D3) 25 MCG Tab PO SCH (07:40)
[2021-03-15] MEDS: Calcium Carbonate 750 MG Tab.Chew PO SCH (07:40)
[2021-03-15] MEDS: Niacin 500 MG Tab PO SCH ×2 (07:40→17:54)
[2021-03-15] MEDS: Cyanocobalamin (Vitamin B12) 1,000 MCG Tab PO SCH (07:40)
[2021-03-15] MEDS: BUPROPION 300 MG PO SCH (19:49)
[2021-03-15] MEDS: LEVOTHYROXINE SODIUM 137 MCG PO SCH (19:49)
[2021-03-15] MEDS: Simvastatin 10 MG Tab PO SCH (19:50)
[2021-03-15] MEDS: Menthol/Methyl Salicylate 85 GM Tube TOP PRN (19:51)
[2021-03-16] MEDS: Calcium Carbonate 750 MG Tab.Chew PO SCH (07:19)
[2021-03-16] MEDS: Ibuprofen 600 MG Tab PO PRN ×2 (07:19→17:15)
[2021-03-16] MEDS: Niacin 500 MG Tab PO SCH ×2 (07:21→17:14)
[2021-03-16] MEDS: Acetaminophen 325 MG Tab PO SCH ×3 (07:21→17:16)
[2021-03-16] MEDS: Citalopram 20 MG Tab PO SCH (07:22)
[2021-03-16] MEDS: Ferrous Sulfate 325 MG Tab PO SCH (07:22)
[2021-03-16] MEDS: Albuterol/Ipratropium 3.0-0.5 MG/3 ML Neb Soln NEB SCH ×4 (07:22→19:33)
[2021-03-16] MEDS: Docusate Sodium 100 MG Cap PO SCH ×2 (07:22→17:14)
[2021-03-16] MEDS: Potassium Chloride 20 MEQ Tab.ER PO SCH ×4 (07:23→19:33)
[2021-03-16] MEDS: Furosemide 20 MG Tab PO SCH ×2 (07:23→10:59)
[2021-03-16] MEDS: Fludrocortisone 0.1 MG Tab PO SCH ×2 (07:23→19:33)
[2021-03-16] MEDS: Cholecalciferol (Vitamin D3) 25 MCG Tab PO SCH (07:24)
[2021-03-16] MEDS: Cyanocobalamin (Vitamin B12) 1,000 MCG Tab PO SCH (07:24)
[2021-03-16] MEDS: LEVOTHYROXINE SODIUM 137 MCG PO SCH (19:33)
[2021-03-16] MEDS: Simvastatin 10 MG Tab PO SCH (19:34)
[2021-03-16] MEDS: BUPROPION 300 MG PO SCH (19:34)
[2021-03-17] MEDS: Bacitracin/Neomycin/Polymyxin B Oint 0.9 GM U/D Packet TOP PRN (07:44)
[2021-03-17] MEDS: Citalopram 20 MG Tab PO SCH (07:45)
[2021-03-17] MEDS: Docusate Sodium 100 MG Cap PO SCH ×2 (07:45→17:09)
[2021-03-17] MEDS: Ferrous Sulfate 325 MG Tab PO SCH (07:45)
[2021-03-17] MEDS: Albuterol/Ipratropium 3.0-0.5 MG/3 ML Neb Soln NEB SCH ×4 (07:45→19:10)
[2021-03-17] MEDS: Potassium Chloride 20 MEQ Tab.ER PO SCH ×4 (07:46→19:10)
[2021-03-17] MEDS: Fludrocortisone 0.1 MG Tab PO SCH ×2 (07:46→19:10)
[2021-03-17] MEDS: Furosemide 20 MG Tab PO SCH ×2 (07:46→11:05)
[2021-03-17] MEDS: Acetaminophen 325 MG Tab PO SCH ×3 (07:47→17:09)
[2021-03-17] MEDS: Calcium Carbonate 750 MG Tab.Chew PO SCH (07:47)
[2021-03-17] MEDS: Niacin 500 MG Tab PO SCH ×2 (07:47→17:09)
[2021-03-17] MEDS: Cholecalciferol (Vitamin D3) 25 MCG Tab PO SCH (07:48)
[2021-03-17] MEDS: Ibuprofen 600 MG Tab PO PRN ×2 (07:48→17:11)
[2021-03-17] MEDS: Cyanocobalamin (Vitamin B12) 1,000 MCG Tab PO SCH (07:48)
[2021-03-17] MEDS: BUPROPION 300 MG PO SCH (19:11)
[2021-03-17] MEDS: LEVOTHYROXINE SODIUM 137 MCG PO SCH (19:11)
[2021-03-17] MEDS: Simvastatin 10 MG Tab PO SCH (19:11)
[2021-03-18] MEDS: Ferrous Sulfate 325 MG Tab PO SCH (07:37)
[2021-03-18] MEDS: Albuterol/Ipratropium 3.0-0.5 MG/3 ML Neb Soln NEB SCH ×4 (07:37→19:22)
[2021-03-18] MEDS: Docusate Sodium 100 MG Cap PO SCH ×2 (07:37→17:07)
[2021-03-18] MEDS: Citalopram 20 MG Tab PO SCH (07:37)
[2021-03-18] MEDS: Niacin 500 MG Tab PO SCH ×2 (07:38→17:07)
[2021-03-18] MEDS: Potassium Chloride 20 MEQ Tab.ER PO SCH ×4 (07:38→19:22)
[2021-03-18] MEDS: Fludrocortisone 0.1 MG Tab PO SCH ×2 (07:38→19:22)
[2021-03-18] MEDS: Furosemide 20 MG Tab PO SCH ×2 (07:38→11:09)
[2021-03-18] MEDS: Acetaminophen 325 MG Tab PO SCH ×3 (07:39→17:07)
[2021-03-18] MEDS: Calcium Carbonate 750 MG Tab.Chew PO SCH (07:39)
[2021-03-18] MEDS: Cyanocobalamin (Vitamin B12) 1,000 MCG Tab PO SCH (07:40)
[2021-03-18] MEDS: Ibuprofen 600 MG Tab PO PRN (07:40)
[2021-03-18] MEDS: Cholecalciferol (Vitamin D3) 25 MCG Tab PO SCH (07:40)
[2021-03-18] MEDS: Bacitracin/Neomycin/Polymyxin B Oint 0.9 GM U/D Packet TOP PRN (11:10)
[2021-03-18] MEDS: Simvastatin 10 MG Tab PO SCH (19:23)
[2021-03-18] MEDS: BUPROPION 300 MG PO SCH (19:23)
[2021-03-18] MEDS: LEVOTHYROXINE SODIUM 137 MCG PO SCH (19:23)
[2021-03-19] MEDS: Acetaminophen 325 MG Tab PO PRN (04:42)
[2021-03-19] MEDS: Albuterol/Ipratropium 3.0-0.5 MG/3 ML Neb Soln NEB SCH ×4 (07:19→20:03)
[2021-03-19] MEDS: Calcium Carbonate 750 MG Tab.Chew PO SCH (07:19)
[2021-03-19] MEDS: Acetaminophen 325 MG Tab PO SCH ×3 (07:20→17:06)
[2021-03-19] MEDS: Cholecalciferol (Vitamin D3) 25 MCG Tab PO SCH (07:20)
[2021-03-19] MEDS: Cyanocobalamin (Vitamin B12) 1,000 MCG Tab PO SCH (07:20)
[2021-03-19] MEDS: Ibuprofen 600 MG Tab PO PRN ×2 (07:21→17:07)
[2021-03-19] MEDS: Citalopram 20 MG Tab PO SCH (07:22)
[2021-03-19] MEDS: Docusate Sodium 100 MG Cap PO SCH ×2 (07:22→17:05)
[2021-03-19] MEDS: Ferrous Sulfate 325 MG Tab PO SCH (07:22)
[2021-03-19] MEDS: Fludrocortisone 0.1 MG Tab PO SCH ×2 (07:22→20:03)
[2021-03-19] MEDS: Furosemide 20 MG Tab PO SCH ×2 (07:23→11:08)
[2021-03-19] MEDS: Potassium Chloride 20 MEQ Tab.ER PO SCH ×4 (07:23→20:03)
[2021-03-19] MEDS: Niacin 500 MG Tab PO SCH ×2 (07:24→17:05)
[2021-03-19] MEDS: Bacitracin/Neomycin/Polymyxin B Oint 0.9 GM U/D Packet TOP PRN (07:26)
[2021-03-19] MEDS: LEVOTHYROXINE SODIUM 137 MCG PO SCH (20:03)
[2021-03-19] MEDS: BUPROPION 300 MG PO SCH (20:04)
[2021-03-19] MEDS: Simvastatin 10 MG Tab PO SCH (20:04)
[2021-03-19] MEDS: Menthol/Methyl Salicylate 85 GM Tube TOP PRN (20:04)
[2021-03-20] MEDS: Ibuprofen 600 MG Tab PO PRN (04:02)
[2021-03-20] MEDS: Citalopram 20 MG Tab PO SCH (08:14)
[2021-03-20] MEDS: Fludrocortisone 0.1 MG Tab PO SCH ×2 (08:14→19:51)
[2021-03-20] MEDS: Furosemide 20 MG Tab PO SCH ×2 (08:15→12:18)
[2021-03-20] MEDS: Potassium Chloride 20 MEQ Tab.ER PO SCH ×4 (08:15→19:52)
[2021-03-20] MEDS: Docusate Sodium 100 MG Cap PO SCH ×2 (08:15→17:26)
[2021-03-20] MEDS: Albuterol/Ipratropium 3.0-0.5 MG/3 ML Neb Soln NEB SCH ×4 (08:16→19:51)
[2021-03-20] MEDS: Ferrous Sulfate 325 MG Tab PO SCH (08:16)
[2021-03-20] MEDS: Niacin 500 MG Tab PO SCH ×2 (08:17→17:26)
[2021-03-20] MEDS: Acetaminophen 325 MG Tab PO SCH ×3 (08:17→17:27)
[2021-03-20] MEDS: Calcium Carbonate 750 MG Tab.Chew PO SCH (08:17)
[2021-03-20] MEDS: Cyanocobalamin (Vitamin B12) 1,000 MCG Tab PO SCH (08:19)
[2021-03-20] MEDS: Cholecalciferol (Vitamin D3) 25 MCG Tab PO SCH (08:19)
[2021-03-20] MEDS: BUPROPION 300 MG PO SCH (19:52)
[2021-03-20] MEDS: LEVOTHYROXINE SODIUM 137 MCG PO SCH (19:52)
[2021-03-20] MEDS: Simvastatin 10 MG Tab PO SCH (19:53)
[2021-03-20] MEDS: Menthol/Methyl Salicylate 85 GM Tube TOP PRN (19:54)
[2021-03-21] MEDS: Albuterol/Ipratropium 3.0-0.5 MG/3 ML Neb Soln NEB SCH ×4 (07:59→19:30)
[2021-03-21] MEDS: Furosemide 20 MG Tab PO SCH ×2 (08:00→12:08)
[2021-03-21] MEDS: Potassium Chloride 20 MEQ Tab.ER PO SCH ×4 (08:00→19:30)
[2021-03-21] MEDS: Fludrocortisone 0.1 MG Tab PO SCH ×2 (08:00→19:31)
[2021-03-21] MEDS: Citalopram 20 MG Tab PO SCH (08:00)
[2021-03-21] MEDS: Docusate Sodium 100 MG Cap PO SCH ×2 (08:01→19:28)
[2021-03-21] MEDS: Niacin 500 MG Tab PO SCH ×2 (08:02→19:29)
[2021-03-21] MEDS: Ferrous Sulfate 325 MG Tab PO SCH (08:02)
[2021-03-21] MEDS: Cholecalciferol (Vitamin D3) 25 MCG Tab PO SCH (08:03)
[2021-03-21] MEDS: Cyanocobalamin (Vitamin B12) 1,000 MCG Tab PO SCH (08:03)
[2021-03-21] MEDS: Acetaminophen 325 MG Tab PO SCH ×3 (08:03→19:29)
[2021-03-21] MEDS: Calcium Carbonate 750 MG Tab.Chew PO SCH (08:04)
[2021-03-21] MEDS: BUPROPION 300 MG PO SCH (19:30)
[2021-03-21] MEDS: Simvastatin 10 MG Tab PO SCH (19:30)
[2021-03-21] MEDS: LEVOTHYROXINE SODIUM 137 MCG PO SCH (19:31)
[2021-03-22] MEDS: Docusate Sodium 100 MG Cap PO SCH ×2 (07:20→17:05)
[2021-03-22] MEDS: Albuterol/Ipratropium 3.0-0.5 MG/3 ML Neb Soln NEB SCH ×4 (07:20→19:41)
[2021-03-22] MEDS: Citalopram 20 MG Tab PO SCH (07:20)
[2021-03-22] MEDS: Ferrous Sulfate 325 MG Tab PO SCH (07:20)
[2021-03-22] MEDS: Potassium Chloride 20 MEQ Tab.ER PO SCH ×4 (07:21→19:49)
[2021-03-22] MEDS: Fludrocortisone 0.1 MG Tab PO SCH ×2 (07:21→19:49)
[2021-03-22] MEDS: Furosemide 20 MG Tab PO SCH ×2 (07:21→11:08)
[2021-03-22] MEDS: Calcium Carbonate 750 MG Tab.Chew PO SCH (07:22)
[2021-03-22] MEDS: Acetaminophen 325 MG Tab PO SCH ×3 (07:22→17:06)
[2021-03-22] MEDS: Niacin 500 MG Tab PO SCH ×2 (07:22→17:05)
[2021-03-22] MEDS: Cyanocobalamin (Vitamin B12) 1,000 MCG Tab PO SCH (07:23)
[2021-03-22] MEDS: Cholecalciferol (Vitamin D3) 25 MCG Tab PO SCH (07:23)
[2021-03-22] MEDS: Ibuprofen 600 MG Tab PO PRN ×2 (07:24→17:07)
[2021-03-22] MEDS: Bacitracin/Neomycin/Polymyxin B Oint 0.9 GM U/D Packet TOP PRN (15:14)
[2021-03-22] MEDS: LEVOTHYROXINE SODIUM 137 MCG PO SCH (19:50)
[2021-03-22] MEDS: Simvastatin 10 MG Tab PO SCH (19:51)
[2021-03-22] MEDS: BUPROPION 300 MG PO SCH (19:51)
[2021-03-22] MEDS: Menthol/Methyl Salicylate 85 GM Tube TOP PRN (19:52)
[2021-03-23] MEDS: Citalopram 20 MG Tab PO SCH (08:04)
[2021-03-23] MEDS: Albuterol/Ipratropium 3.0-0.5 MG/3 ML Neb Soln NEB SCH ×4 (08:04→19:41)
[2021-03-23] MEDS: Potassium Chloride 20 MEQ Tab.ER PO SCH ×4 (08:05→19:43)
[2021-03-23] MEDS: Fludrocortisone 0.1 MG Tab PO SCH ×2 (08:05→19:42)
[2021-03-23] MEDS: Furosemide 20 MG Tab PO SCH ×2 (08:05→11:57)
[2021-03-23] MEDS: Acetaminophen 325 MG Tab PO SCH ×3 (08:06→17:34)
[2021-03-23] MEDS: Docusate Sodium 100 MG Cap PO SCH ×2 (08:06→17:34)
[2021-03-23] MEDS: Ferrous Sulfate 325 MG Tab PO SCH (08:07)
[2021-03-23] MEDS: Niacin 500 MG Tab PO SCH ×2 (08:07→17:34)
[2021-03-23] MEDS: Calcium Carbonate 750 MG Tab.Chew PO SCH (08:07)
[2021-03-23] MEDS: Cholecalciferol (Vitamin D3) 25 MCG Tab PO SCH (08:07)
[2021-03-23] MEDS: Cyanocobalamin (Vitamin B12) 1,000 MCG Tab PO SCH (08:08)
[2021-03-23] MEDS: BUPROPION 300 MG PO SCH (19:43)
[2021-03-23] MEDS: LEVOTHYROXINE SODIUM 137 MCG PO SCH (19:43)
[2021-03-23] MEDS: Simvastatin 10 MG Tab PO SCH (19:43)
[2021-03-23] MEDS: Menthol/Methyl Salicylate 85 GM Tube TOP PRN (19:44)
[2021-03-23] MEDS: Ibuprofen 600 MG Tab PO PRN (19:44)
[2021-03-24] MEDS: Fludrocortisone 0.1 MG Tab PO SCH ×2 (07:34→19:44)
[2021-03-24] MEDS: Furosemide 20 MG Tab PO SCH ×2 (07:34→11:21)
[2021-03-24] MEDS: Citalopram 20 MG Tab PO SCH (07:34)
[2021-03-24] MEDS: Potassium Chloride 20 MEQ Tab.ER PO SCH ×4 (07:34→19:44)
[2021-03-24] MEDS: Niacin 500 MG Tab PO SCH ×2 (07:35→17:04)
[2021-03-24] MEDS: Docusate Sodium 100 MG Cap PO SCH ×2 (07:35→17:04)
[2021-03-24] MEDS: Calcium Carbonate 750 MG Tab.Chew PO SCH (07:35)
[2021-03-24] MEDS: Acetaminophen 325 MG Tab PO SCH ×3 (07:35→17:04)
[2021-03-24] MEDS: Ferrous Sulfate 325 MG Tab PO SCH (07:37)
[2021-03-24] MEDS: Albuterol/Ipratropium 3.0-0.5 MG/3 ML Neb Soln NEB SCH ×4 (07:37→19:44)
[2021-03-24] MEDS: Cholecalciferol (Vitamin D3) 25 MCG Tab PO SCH (07:38)
[2021-03-24] MEDS: Cyanocobalamin (Vitamin B12) 1,000 MCG Tab PO SCH (07:38)
[2021-03-24] MEDS: LEVOTHYROXINE SODIUM 137 MCG PO SCH (19:45)
[2021-03-24] MEDS: Simvastatin 10 MG Tab PO SCH (19:45)
[2021-03-24] MEDS: BUPROPION 300 MG PO SCH (19:45)
[2021-03-24] MEDS: Ibuprofen 600 MG Tab PO PRN (19:46)
[2021-03-24] MEDS: Menthol/Methyl Salicylate 85 GM Tube TOP PRN (19:47)
[2021-03-24] MEDS: Bacitracin/Neomycin/Polymyxin B Oint 0.9 GM U/D Packet TOP PRN (20:16)
[2021-03-25] MEDS: Ibuprofen 600 MG Tab PO PRN ×2 (03:12→19:35)
[2021-03-25] MEDS: Albuterol/Ipratropium 3.0-0.5 MG/3 ML Neb Soln NEB SCH ×4 (07:44→19:32)
[2021-03-25] MEDS: Fludrocortisone 0.1 MG Tab PO SCH ×2 (07:45→19:33)
[2021-03-25] MEDS: Furosemide 20 MG Tab PO SCH ×2 (07:45→11:32)
[2021-03-25] MEDS: Potassium Chloride 20 MEQ Tab.ER PO SCH ×4 (07:45→19:33)
[2021-03-25] MEDS: Citalopram 20 MG Tab PO SCH (07:45)
[2021-03-25] MEDS: Docusate Sodium 100 MG Cap PO SCH ×2 (07:46→17:38)
[2021-03-25] MEDS: Ferrous Sulfate 325 MG Tab PO SCH (07:46)
[2021-03-25] MEDS: Cholecalciferol (Vitamin D3) 25 MCG Tab PO SCH (07:46)
[2021-03-25] MEDS: Cyanocobalamin (Vitamin B12) 1,000 MCG Tab PO SCH (07:46)
[2021-03-25] MEDS: Acetaminophen 325 MG Tab PO SCH ×3 (07:46→17:39)
[2021-03-25] MEDS: Calcium Carbonate 750 MG Tab.Chew PO SCH (07:47)
[2021-03-25] MEDS: Niacin 500 MG Tab PO SCH ×2 (07:47→17:38)
[2021-03-25] MEDS: Bacitracin/Neomycin/Polymyxin B Oint 0.9 GM U/D Packet TOP PRN (11:31)
[2021-03-25] MEDS: LEVOTHYROXINE SODIUM 137 MCG PO SCH (19:33)
[2021-03-25] MEDS: Simvastatin 10 MG Tab PO SCH (19:33)
[2021-03-25] MEDS: BUPROPION 300 MG PO SCH (19:33)
[2021-03-25] MEDS: Menthol/Methyl Salicylate 85 GM Tube TOP PRN (19:34)
[2021-03-26] MEDS: Albuterol/Ipratropium 3.0-0.5 MG/3 ML Neb Soln NEB SCH ×4 (07:35→19:13)
[2021-03-26] MEDS: Ibuprofen 600 MG Tab PO PRN ×2 (07:36→17:16)
[2021-03-26] MEDS: Ferrous Sulfate 325 MG Tab PO SCH (07:37)
[2021-03-26] MEDS: Fludrocortisone 0.1 MG Tab PO SCH ×2 (07:37→19:13)
[2021-03-26] MEDS: Docusate Sodium 100 MG Cap PO SCH ×2 (07:37→17:14)
[2021-03-26] MEDS: Potassium Chloride 20 MEQ Tab.ER PO SCH ×4 (07:37→19:13)
[2021-03-26] MEDS: Citalopram 20 MG Tab PO SCH (07:37)
[2021-03-26] MEDS: Niacin 500 MG Tab PO SCH ×2 (07:38→17:15)
[2021-03-26] MEDS: Calcium Carbonate 750 MG Tab.Chew PO SCH (07:38)
[2021-03-26] MEDS: Furosemide 20 MG Tab PO SCH ×2 (07:38→11:17)
[2021-03-26] MEDS: Cyanocobalamin (Vitamin B12) 1,000 MCG Tab PO SCH (07:39)
[2021-03-26] MEDS: Acetaminophen 325 MG Tab PO SCH ×3 (07:39→17:15)
[2021-03-26] MEDS: Cholecalciferol (Vitamin D3) 25 MCG Tab PO SCH (07:40)
[2021-03-26] MEDS: Bisacodyl 5 MG Tab PO PRN (11:44)
[2021-03-26] MEDS: BUPROPION 300 MG PO SCH (19:13)
[2021-03-26] MEDS: Simvastatin 10 MG Tab PO SCH (19:13)
[2021-03-26] MEDS: LEVOTHYROXINE SODIUM 137 MCG PO SCH (19:13)
[2021-03-27] MEDS: Citalopram 20 MG Tab PO SCH (07:20)
[2021-03-27] MEDS: Albuterol/Ipratropium 3.0-0.5 MG/3 ML Neb Soln NEB SCH ×4 (07:20→19:11)
[2021-03-27] MEDS: Docusate Sodium 100 MG Cap PO SCH ×2 (07:20→17:08)
[2021-03-27] MEDS: Ferrous Sulfate 325 MG Tab PO SCH (07:21)
[2021-03-27] MEDS: Potassium Chloride 20 MEQ Tab.ER PO SCH ×4 (07:21→19:11)
[2021-03-27] MEDS: Fludrocortisone 0.1 MG Tab PO SCH ×2 (07:21→19:11)
[2021-03-27] MEDS: Furosemide 20 MG Tab PO SCH ×2 (07:21→11:07)
[2021-03-27] MEDS: Ibuprofen 600 MG Tab PO PRN ×2 (07:22→17:07)
[2021-03-27] MEDS: Niacin 500 MG Tab PO SCH ×2 (07:23→17:09)
[2021-03-27] MEDS: Calcium Carbonate 750 MG Tab.Chew PO SCH (07:23)
[2021-03-27] MEDS: Acetaminophen 325 MG Tab PO SCH ×3 (07:24→17:08)
[2021-03-27] MEDS: Cholecalciferol (Vitamin D3) 25 MCG Tab PO SCH (07:24)
[2021-03-27] MEDS: Cyanocobalamin (Vitamin B12) 1,000 MCG Tab PO SCH (07:24)
[2021-03-27] MEDS: Simvastatin 10 MG Tab PO SCH (19:10)
[2021-03-27] MEDS: LEVOTHYROXINE SODIUM 137 MCG PO SCH (19:11)
[2021-03-27] MEDS: BUPROPION 300 MG PO SCH (19:11)
[2021-03-28] MEDS: Citalopram 20 MG Tab PO SCH (07:46)
[2021-03-28] MEDS: Potassium Chloride 20 MEQ Tab.ER PO SCH ×4 (07:46→19:53)
[2021-03-28] MEDS: Fludrocortisone 0.1 MG Tab PO SCH ×2 (07:47→19:53)
[2021-03-28] MEDS: Furosemide 20 MG Tab PO SCH ×2 (07:47→11:48)
[2021-03-28] MEDS: Docusate Sodium 100 MG Cap PO SCH ×2 (07:48→17:35)
[2021-03-28] MEDS: Ferrous Sulfate 325 MG Tab PO SCH (07:48)
[2021-03-28] MEDS: Niacin 500 MG Tab PO SCH ×2 (07:49→17:36)
[2021-03-28] MEDS: Calcium Carbonate 750 MG Tab.Chew PO SCH (07:49)
[2021-03-28] MEDS: Cholecalciferol (Vitamin D3) 25 MCG Tab PO SCH (07:50)
[2021-03-28] MEDS: Acetaminophen 325 MG Tab PO SCH ×3 (07:51→17:36)
[2021-03-28] MEDS: Cyanocobalamin (Vitamin B12) 1,000 MCG Tab PO SCH (07:51)
[2021-03-28] MEDS: Albuterol/Ipratropium 3.0-0.5 MG/3 ML Neb Soln NEB SCH ×4 (07:52→19:52)
[2021-03-28] MEDS: Ibuprofen 600 MG Tab PO PRN ×2 (07:53→15:42)
[2021-03-28] MEDS: Simvastatin 10 MG Tab PO SCH (19:54)
[2021-03-28] MEDS: Menthol/Methyl Salicylate 85 GM Tube TOP PRN (19:54)
[2021-03-28] MEDS: LEVOTHYROXINE SODIUM 137 MCG PO SCH (19:54)
[2021-03-28] MEDS: BUPROPION 300 MG PO SCH (19:54)
[2021-03-29] MEDS: Ibuprofen 600 MG Tab PO PRN ×2 (05:24→19:54)
[2021-03-29] MEDS: Potassium Chloride 20 MEQ Tab.ER PO SCH ×4 (08:19→19:51)
[2021-03-29] MEDS: Citalopram 20 MG Tab PO SCH (08:20)
[2021-03-29] MEDS: Docusate Sodium 100 MG Cap PO SCH ×2 (08:20→18:58)
[2021-03-29] MEDS: Albuterol/Ipratropium 3.0-0.5 MG/3 ML Neb Soln NEB SCH ×4 (08:20→19:51)
[2021-03-29] MEDS: Ferrous Sulfate 325 MG Tab PO SCH (08:21)
[2021-03-29] MEDS: Niacin 500 MG Tab PO SCH ×2 (08:21→18:59)
[2021-03-29] MEDS: Fludrocortisone 0.1 MG Tab PO SCH ×2 (08:21→19:51)
[2021-03-29] MEDS: Furosemide 20 MG Tab PO SCH ×2 (08:21→11:39)
[2021-03-29] MEDS: Calcium Carbonate 750 MG Tab.Chew PO SCH (08:22)
[2021-03-29] MEDS: Acetaminophen 325 MG Tab PO SCH ×3 (08:23→18:59)
[2021-03-29] MEDS: Cyanocobalamin (Vitamin B12) 1,000 MCG Tab PO SCH (08:25)
[2021-03-29] MEDS: Cholecalciferol (Vitamin D3) 25 MCG Tab PO SCH (08:25)
[2021-03-29] MEDS: LEVOTHYROXINE SODIUM 137 MCG PO SCH (19:52)
[2021-03-29] MEDS: BUPROPION 300 MG PO SCH (19:52)
[2021-03-29] MEDS: Simvastatin 10 MG Tab PO SCH (19:53)
[2021-03-29] MEDS: Menthol/Methyl Salicylate 85 GM Tube TOP PRN (19:55)
[2021-03-30] MEDS: Fludrocortisone 0.1 MG Tab PO SCH ×2 (07:55→19:55)
[2021-03-30] MEDS: Citalopram 20 MG Tab PO SCH (07:55)
[2021-03-30] MEDS: Potassium Chloride 20 MEQ Tab.ER PO SCH ×4 (07:55→19:55)
[2021-03-30] MEDS: Docusate Sodium 100 MG Cap PO SCH ×2 (07:56→17:02)
[2021-03-30] MEDS: Furosemide 20 MG Tab PO SCH ×2 (07:56→12:01)
[2021-03-30] MEDS: Ferrous Sulfate 325 MG Tab PO SCH (07:57)
[2021-03-30] MEDS: Albuterol/Ipratropium 3.0-0.5 MG/3 ML Neb Soln NEB SCH ×4 (07:57→19:52)
[2021-03-30] MEDS: Cholecalciferol (Vitamin D3) 25 MCG Tab PO SCH (07:58)
[2021-03-30] MEDS: Calcium Carbonate 750 MG Tab.Chew PO SCH (07:58)
[2021-03-30] MEDS: Niacin 500 MG Tab PO SCH ×2 (07:58→17:02)
[2021-03-30] MEDS: Cyanocobalamin (Vitamin B12) 1,000 MCG Tab PO SCH (07:59)
[2021-03-30] MEDS: Acetaminophen 325 MG Tab PO SCH ×3 (07:59→17:02)
[2021-03-30] MEDS: Magnesium Hydroxide 400 MG/5 ML Susp 30 ML Cup PO PRN (08:25)
[2021-03-30] MEDS: LEVOTHYROXINE SODIUM 137 MCG PO SCH (19:56)
[2021-03-30] MEDS: Simvastatin 10 MG Tab PO SCH (19:56)
[2021-03-30] MEDS: BUPROPION 300 MG PO SCH (19:56)
[2021-03-30] MEDS: Menthol/Methyl Salicylate 85 GM Tube TOP PRN (19:57)
[2021-03-31] MEDS: Bacitracin/Neomycin/Polymyxin B Oint 0.9 GM U/D Packet TOP PRN (07:40)
[2021-03-31] MEDS: Albuterol/Ipratropium 3.0-0.5 MG/3 ML Neb Soln NEB SCH ×4 (07:41→19:34)
[2021-03-31] MEDS: Potassium Chloride 20 MEQ Tab.ER PO SCH ×4 (08:05→19:37)
[2021-03-31] MEDS: Furosemide 20 MG Tab PO SCH ×2 (08:06→12:02)
[2021-03-31] MEDS: Citalopram 20 MG Tab PO SCH (08:06)
[2021-03-31] MEDS: Fludrocortisone 0.1 MG Tab PO SCH ×2 (08:06→19:37)
[2021-03-31] MEDS: Niacin 500 MG Tab PO SCH ×2 (08:07→18:01)
[2021-03-31] MEDS: Docusate Sodium 100 MG Cap PO SCH ×2 (08:07→18:01)
[2021-03-31] MEDS: Ferrous Sulfate 325 MG Tab PO SCH (08:07)
[2021-03-31] MEDS: Cholecalciferol (Vitamin D3) 25 MCG Tab PO SCH (08:07)
[2021-03-31] MEDS: Calcium Carbonate 750 MG Tab.Chew PO SCH (08:08)
[2021-03-31] MEDS: Cyanocobalamin (Vitamin B12) 1,000 MCG Tab PO SCH (08:08)
[2021-03-31] MEDS: Acetaminophen 325 MG Tab PO SCH ×3 (08:08→18:01)
[2021-03-31] MEDS: LEVOTHYROXINE SODIUM 137 MCG PO SCH (19:37)
[2021-03-31] MEDS: Simvastatin 10 MG Tab PO SCH (19:38)
[2021-03-31] MEDS: BUPROPION 300 MG PO SCH (19:38)
[2021-03-31] MEDS: Menthol/Methyl Salicylate 85 GM Tube TOP PRN (19:39)
[2021-04-01] MEDS: Potassium Chloride 20 MEQ Tab.ER PO SCH ×4 (08:03→19:52)
[2021-04-01] MEDS: Citalopram 20 MG Tab PO SCH (08:04)
[2021-04-01] MEDS: Fludrocortisone 0.1 MG Tab PO SCH ×2 (08:04→19:52)
[2021-04-01] MEDS: Furosemide 20 MG Tab PO SCH ×2 (08:04→11:27)
[2021-04-01] MEDS: Docusate Sodium 100 MG Cap PO SCH ×2 (08:04→17:00)
[2021-04-01] MEDS: Albuterol/Ipratropium 3.0-0.5 MG/3 ML Neb Soln NEB SCH ×4 (08:05→19:49)
[2021-04-01] MEDS: Niacin 500 MG Tab PO SCH ×2 (08:05→17:00)
[2021-04-01] MEDS: Acetaminophen 325 MG Tab PO SCH ×3 (08:05→17:00)
[2021-04-01] MEDS: Ferrous Sulfate 325 MG Tab PO SCH (08:05)
[2021-04-01] MEDS: Cholecalciferol (Vitamin D3) 25 MCG Tab PO SCH (08:06)
[2021-04-01] MEDS: Cyanocobalamin (Vitamin B12) 1,000 MCG Tab PO SCH (08:06)
[2021-04-01] MEDS: Calcium Carbonate 750 MG Tab.Chew PO SCH (08:06)
[2021-04-01] MEDS: BUPROPION 300 MG PO SCH (19:53)
[2021-04-01] MEDS: LEVOTHYROXINE SODIUM 137 MCG PO SCH (19:53)
[2021-04-01] MEDS: Simvastatin 10 MG Tab PO SCH (19:53)
[2021-04-01] MEDS: Menthol/Methyl Salicylate 85 GM Tube TOP PRN (19:54)
[2021-04-02] MEDS: Fludrocortisone 0.1 MG Tab PO SCH ×2 (07:38→19:33)
[2021-04-02] MEDS: Potassium Chloride 20 MEQ Tab.ER PO SCH ×4 (07:38→19:33)
[2021-04-02] MEDS: Albuterol/Ipratropium 3.0-0.5 MG/3 ML Neb Soln NEB SCH ×4 (07:38→19:32)
[2021-04-02] MEDS: Furosemide 20 MG Tab PO SCH ×2 (07:38→12:14)
[2021-04-02] MEDS: Citalopram 20 MG Tab PO SCH (07:38)
[2021-04-02] MEDS: Docusate Sodium 100 MG Cap PO SCH ×2 (07:39→17:27)
[2021-04-02] MEDS: Ferrous Sulfate 325 MG Tab PO SCH (07:39)
[2021-04-02] MEDS: Calcium Carbonate 750 MG Tab.Chew PO SCH (07:39)
[2021-04-02] MEDS: Niacin 500 MG Tab PO SCH ×2 (07:39→17:27)
[2021-04-02] MEDS: Cholecalciferol (Vitamin D3) 25 MCG Tab PO SCH (07:40)
[2021-04-02] MEDS: Cyanocobalamin (Vitamin B12) 1,000 MCG Tab PO SCH (07:40)
[2021-04-02] MEDS: Acetaminophen 325 MG Tab PO SCH ×3 (07:40→17:28)
[2021-04-02] MEDS: BUPROPION 300 MG PO SCH (19:33)
[2021-04-02] MEDS: Simvastatin 10 MG Tab PO SCH (19:33)
[2021-04-02] MEDS: LEVOTHYROXINE SODIUM 137 MCG PO SCH (19:33)
[2021-04-02] MEDS: Menthol/Methyl Salicylate 85 GM Tube TOP PRN (19:34)
[2021-04-02] MEDS: Ibuprofen 600 MG Tab PO PRN (19:35)
[2021-04-03] MEDS: Acetaminophen 325 MG Tab PO PRN (02:28)
[2021-04-03] MEDS: Citalopram 20 MG Tab PO SCH (07:25)
[2021-04-03] MEDS: Fludrocortisone 0.1 MG Tab PO SCH ×2 (07:26→19:33)
[2021-04-03] MEDS: Albuterol/Ipratropium 3.0-0.5 MG/3 ML Neb Soln NEB SCH ×4 (07:26→19:32)
[2021-04-03] MEDS: Docusate Sodium 100 MG Cap PO SCH ×2 (07:26→17:09)
[2021-04-03] MEDS: Ferrous Sulfate 325 MG Tab PO SCH (07:26)
[2021-04-03] MEDS: Niacin 500 MG Tab PO SCH ×2 (07:27→17:09)
[2021-04-03] MEDS: Furosemide 20 MG Tab PO SCH ×2 (07:27→11:12)
[2021-04-03] MEDS: Calcium Carbonate 750 MG Tab.Chew PO SCH (07:27)
[2021-04-03] MEDS: Potassium Chloride 20 MEQ Tab.ER PO SCH ×4 (07:27→19:32)
[2021-04-03] MEDS: Cholecalciferol (Vitamin D3) 25 MCG Tab PO SCH (07:28)
[2021-04-03] MEDS: Acetaminophen 325 MG Tab PO SCH ×3 (07:28→17:09)
[2021-04-03] MEDS: Cyanocobalamin (Vitamin B12) 1,000 MCG Tab PO SCH (07:28)
[2021-04-03] MEDS: Ibuprofen 600 MG Tab PO PRN ×2 (07:29→17:10)
[2021-04-03] MEDS: Bacitracin/Neomycin/Polymyxin B Oint 0.9 GM U/D Packet TOP PRN (08:19)
[2021-04-03] MEDS: BUPROPION 300 MG PO SCH (19:33)
[2021-04-03] MEDS: Simvastatin 10 MG Tab PO SCH (19:33)
[2021-04-03] MEDS: LEVOTHYROXINE SODIUM 137 MCG PO SCH (19:33)
[2021-04-03] MEDS: Menthol/Methyl Salicylate 85 GM Tube TOP PRN (19:34)
[2021-04-04] MEDS: Citalopram 20 MG Tab PO SCH (07:36)
[2021-04-04] MEDS: Fludrocortisone 0.1 MG Tab PO SCH ×2 (07:36→20:01)
[2021-04-04] MEDS: Niacin 500 MG Tab PO SCH ×2 (07:37→17:31)
[2021-04-04] MEDS: Potassium Chloride 20 MEQ Tab.ER PO SCH ×4 (07:37→19:41)
[2021-04-04] MEDS: Furosemide 20 MG Tab PO SCH ×2 (07:37→11:47)
[2021-04-04] MEDS: Calcium Carbonate 750 MG Tab.Chew PO SCH (07:38)
[2021-04-04] MEDS: Acetaminophen 325 MG Tab PO SCH ×3 (07:39→17:31)
[2021-04-04] MEDS: Cholecalciferol (Vitamin D3) 25 MCG Tab PO SCH (07:40)
[2021-04-04] MEDS: Docusate Sodium 100 MG Cap PO SCH ×2 (07:40→17:31)
[2021-04-04] MEDS: Cyanocobalamin (Vitamin B12) 1,000 MCG Tab PO SCH (07:40)
[2021-04-04] MEDS: Ferrous Sulfate 325 MG Tab PO SCH (07:40)
[2021-04-04] MEDS: Albuterol/Ipratropium 3.0-0.5 MG/3 ML Neb Soln NEB SCH ×4 (07:41→19:39)
[2021-04-04] MEDS: LEVOTHYROXINE SODIUM 137 MCG PO SCH (19:42)
[2021-04-04] MEDS: BUPROPION 300 MG PO SCH (19:42)
[2021-04-04] MEDS: Simvastatin 10 MG Tab PO SCH (19:42)
[2021-04-04] MEDS: Menthol/Methyl Salicylate 85 GM Tube TOP PRN (19:44)
[2021-04-05] MEDS: Potassium Chloride 20 MEQ Tab.ER PO SCH ×4 (07:47→19:40)
[2021-04-05] MEDS: Furosemide 20 MG Tab PO SCH ×2 (07:47→12:07)
[2021-04-05] MEDS: Citalopram 20 MG Tab PO SCH (07:47)
[2021-04-05] MEDS: Fludrocortisone 0.1 MG Tab PO SCH ×2 (07:48→19:39)
[2021-04-05] MEDS: Ferrous Sulfate 325 MG Tab PO SCH (07:48)
[2021-04-05] MEDS: Niacin 500 MG Tab PO SCH ×2 (07:49→17:15)
[2021-04-05] MEDS: Albuterol/Ipratropium 3.0-0.5 MG/3 ML Neb Soln NEB SCH ×4 (07:49→19:36)
[2021-04-05] MEDS: Calcium Carbonate 750 MG Tab.Chew PO SCH (07:49)
[2021-04-05] MEDS: Docusate Sodium 100 MG Cap PO SCH ×2 (07:49→17:15)
[2021-04-05] MEDS: Acetaminophen 325 MG Tab PO SCH ×3 (07:50→17:15)
[2021-04-05] MEDS: Cyanocobalamin (Vitamin B12) 1,000 MCG Tab PO SCH (07:51)
[2021-04-05] MEDS: Cholecalciferol (Vitamin D3) 25 MCG Tab PO SCH (07:52)
[2021-04-05] MEDS: LEVOTHYROXINE SODIUM 137 MCG PO SCH (19:40)
[2021-04-05] MEDS: BUPROPION 300 MG PO SCH (19:40)
[2021-04-05] MEDS: Simvastatin 10 MG Tab PO SCH (19:41)
[2021-04-05] MEDS: Menthol/Methyl Salicylate 85 GM Tube TOP PRN (19:42)
[2021-04-06] MEDS: Albuterol/Ipratropium 3.0-0.5 MG/3 ML Neb Soln NEB SCH ×4 (07:30→19:11)
[2021-04-06] MEDS: Fludrocortisone 0.1 MG Tab PO SCH ×2 (07:33→19:11)
[2021-04-06] MEDS: Citalopram 20 MG Tab PO SCH (07:33)
[2021-04-06] MEDS: Ferrous Sulfate 325 MG Tab PO SCH (07:33)
[2021-04-06] MEDS: Docusate Sodium 100 MG Cap PO SCH ×2 (07:33→17:08)
[2021-04-06] MEDS: Potassium Chloride 20 MEQ Tab.ER PO SCH ×4 (07:34→19:11)
[2021-04-06] MEDS: Niacin 500 MG Tab PO SCH ×2 (07:34→17:08)
[2021-04-06] MEDS: Furosemide 20 MG Tab PO SCH ×2 (07:34→11:19)
[2021-04-06] MEDS: Cyanocobalamin (Vitamin B12) 1,000 MCG Tab PO SCH (07:35)
[2021-04-06] MEDS: Calcium Carbonate 750 MG Tab.Chew PO SCH (07:35)
[2021-04-06] MEDS: Acetaminophen 325 MG Tab PO SCH ×3 (07:35→17:09)
[2021-04-06] MEDS: Ibuprofen 600 MG Tab PO PRN ×2 (07:36→17:09)
[2021-04-06] MEDS: Cholecalciferol (Vitamin D3) 25 MCG Tab PO SCH (07:36)
[2021-04-06] MEDS: Bacitracin/Neomycin/Polymyxin B Oint 0.9 GM U/D Packet TOP PRN (12:59)
[2021-04-06] MEDS: BUPROPION 300 MG PO SCH (19:12)
[2021-04-06] MEDS: Simvastatin 10 MG Tab PO SCH (19:12)
[2021-04-06] MEDS: LEVOTHYROXINE SODIUM 137 MCG PO SCH (19:12)
[2021-04-07] MEDS: Bacitracin/Neomycin/Polymyxin B Oint 0.9 GM U/D Packet TOP PRN (07:23)
[2021-04-07] MEDS: Ibuprofen 600 MG Tab PO PRN ×2 (07:24→17:10)
[2021-04-07] MEDS: Docusate Sodium 100 MG Cap PO SCH ×2 (07:25→17:09)
[2021-04-07] MEDS: Fludrocortisone 0.1 MG Tab PO SCH ×2 (07:25→19:10)
[2021-04-07] MEDS: Citalopram 20 MG Tab PO SCH (07:25)
[2021-04-07] MEDS: Potassium Chloride 20 MEQ Tab.ER PO SCH ×4 (07:26→19:10)
[2021-04-07] MEDS: Albuterol/Ipratropium 3.0-0.5 MG/3 ML Neb Soln NEB SCH ×4 (07:26→19:11)
[2021-04-07] MEDS: Ferrous Sulfate 325 MG Tab PO SCH (07:26)
[2021-04-07] MEDS: Furosemide 20 MG Tab PO SCH ×2 (07:26→11:03)
[2021-04-07] MEDS: Calcium Carbonate 750 MG Tab.Chew PO SCH (07:27)
[2021-04-07] MEDS: Niacin 500 MG Tab PO SCH ×2 (07:27→17:09)
[2021-04-07] MEDS: Acetaminophen 325 MG Tab PO SCH ×3 (07:28→17:09)
[2021-04-07] MEDS: Cholecalciferol (Vitamin D3) 25 MCG Tab PO SCH (07:28)
[2021-04-07] MEDS: Cyanocobalamin (Vitamin B12) 1,000 MCG Tab PO SCH (07:28)
[2021-04-07] MEDS: LEVOTHYROXINE SODIUM 137 MCG PO SCH (19:11)
[2021-04-07] MEDS: Simvastatin 10 MG Tab PO SCH (19:11)
[2021-04-07] MEDS: BUPROPION 300 MG PO SCH (19:11)
[2021-04-08] MEDS: Albuterol/Ipratropium 3.0-0.5 MG/3 ML Neb Soln NEB SCH ×4 (07:50→19:28)
[2021-04-08] MEDS: Ibuprofen 600 MG Tab PO PRN ×2 (07:51→17:09)
[2021-04-08] MEDS: Cyanocobalamin (Vitamin B12) 1,000 MCG Tab PO SCH (07:52)
[2021-04-08] MEDS: Cholecalciferol (Vitamin D3) 25 MCG Tab PO SCH (07:52)
[2021-04-08] MEDS: Acetaminophen 325 MG Tab PO SCH ×3 (07:52→17:10)
[2021-04-08] MEDS: Fludrocortisone 0.1 MG Tab PO SCH ×2 (07:53→19:27)
[2021-04-08] MEDS: Potassium Chloride 20 MEQ Tab.ER PO SCH ×4 (07:53→19:28)
[2021-04-08] MEDS: Citalopram 20 MG Tab PO SCH (07:53)
[2021-04-08] MEDS: Ferrous Sulfate 325 MG Tab PO SCH (07:53)
[2021-04-08] MEDS: Docusate Sodium 100 MG Cap PO SCH ×2 (07:53→17:09)
[2021-04-08] MEDS: Niacin 500 MG Tab PO SCH ×2 (07:54→17:10)
[2021-04-08] MEDS: Furosemide 20 MG Tab PO SCH ×2 (07:54→11:09)
[2021-04-08] MEDS: Calcium Carbonate 750 MG Tab.Chew PO SCH (07:54)
[2021-04-08] MEDS: BUPROPION 300 MG PO SCH (19:28)
[2021-04-08] MEDS: LEVOTHYROXINE SODIUM 137 MCG PO SCH (19:28)
[2021-04-08] MEDS: Simvastatin 10 MG Tab PO SCH (19:28)
[2021-04-09] MEDS: Citalopram 20 MG Tab PO SCH (08:04)
[2021-04-09] MEDS: Fludrocortisone 0.1 MG Tab PO SCH ×2 (08:05→19:47)
[2021-04-09] MEDS: Potassium Chloride 20 MEQ Tab.ER PO SCH ×4 (08:06→19:48)
[2021-04-09] MEDS: Furosemide 20 MG Tab PO SCH ×2 (08:06→11:46)
[2021-04-09] MEDS: Albuterol/Ipratropium 3.0-0.5 MG/3 ML Neb Soln NEB SCH ×4 (08:07→19:44)
[2021-04-09] MEDS: Docusate Sodium 100 MG Cap PO SCH ×2 (08:07→17:00)
[2021-04-09] MEDS: Ferrous Sulfate 325 MG Tab PO SCH (08:08)
[2021-04-09] MEDS: Niacin 500 MG Tab PO SCH ×2 (08:08→17:00)
[2021-04-09] MEDS: Calcium Carbonate 750 MG Tab.Chew PO SCH (08:08)
[2021-04-09] MEDS: Cyanocobalamin (Vitamin B12) 1,000 MCG Tab PO SCH (08:09)
[2021-04-09] MEDS: Acetaminophen 325 MG Tab PO SCH ×3 (08:09→16:59)
[2021-04-09] MEDS: Ibuprofen 600 MG Tab PO PRN (08:10)
[2021-04-09] MEDS: Cholecalciferol (Vitamin D3) 25 MCG Tab PO SCH (08:10)
[2021-04-09] MEDS: BUPROPION 300 MG PO SCH (19:48)
[2021-04-09] MEDS: Simvastatin 10 MG Tab PO SCH (19:48)
[2021-04-09] MEDS: LEVOTHYROXINE SODIUM 137 MCG PO SCH (19:48)
[2021-04-09] MEDS: Menthol/Methyl Salicylate 85 GM Tube TOP PRN (19:49)
[2021-04-10] MEDS: Citalopram 20 MG Tab PO SCH (07:35)
[2021-04-10] MEDS: Albuterol/Ipratropium 3.0-0.5 MG/3 ML Neb Soln NEB SCH ×4 (07:35→19:30)
[2021-04-10] MEDS: Fludrocortisone 0.1 MG Tab PO SCH ×2 (07:36→19:30)
[2021-04-10] MEDS: Ferrous Sulfate 325 MG Tab PO SCH (07:36)
[2021-04-10] MEDS: Docusate Sodium 100 MG Cap PO SCH ×2 (07:36→17:00)
[2021-04-10] MEDS: Potassium Chloride 20 MEQ Tab.ER PO SCH ×4 (07:36→19:31)
[2021-04-10] MEDS: Furosemide 20 MG Tab PO SCH ×2 (07:37→11:08)
[2021-04-10] MEDS: Niacin 500 MG Tab PO SCH ×2 (07:37→17:00)
[2021-04-10] MEDS: Calcium Carbonate 750 MG Tab.Chew PO SCH (07:37)
[2021-04-10] MEDS: Ibuprofen 600 MG Tab PO PRN ×2 (07:38→17:01)
[2021-04-10] MEDS: Acetaminophen 325 MG Tab PO SCH ×3 (07:38→17:00)
[2021-04-10] MEDS: Cyanocobalamin (Vitamin B12) 1,000 MCG Tab PO SCH (07:39)
[2021-04-10] MEDS: Cholecalciferol (Vitamin D3) 25 MCG Tab PO SCH (07:39)
[2021-04-10] MEDS: LEVOTHYROXINE SODIUM 137 MCG PO SCH (19:31)
[2021-04-10] MEDS: Simvastatin 10 MG Tab PO SCH (19:31)
[2021-04-10] MEDS: BUPROPION 300 MG PO SCH (19:31)
[2021-04-11] MEDS: Albuterol/Ipratropium 3.0-0.5 MG/3 ML Neb Soln NEB SCH ×4 (07:17→19:14)
[2021-04-11] MEDS: Bacitracin/Neomycin/Polymyxin B Oint 0.9 GM U/D Packet TOP SCH (07:17)
[2021-04-11] MEDS: Cholecalciferol (Vitamin D3) 25 MCG Tab PO SCH (07:18)
[2021-04-11] MEDS: Citalopram 20 MG Tab PO SCH (07:18)
[2021-04-11] MEDS: Docusate Sodium 100 MG Cap PO SCH ×2 (07:18→17:05)
[2021-04-11] MEDS: Cyanocobalamin (Vitamin B12) 1,000 MCG Tab PO SCH (07:18)
[2021-04-11] MEDS: Fludrocortisone 0.1 MG Tab PO SCH ×2 (07:19→19:15)
[2021-04-11] MEDS: Potassium Chloride 20 MEQ Tab.ER PO SCH ×4 (07:19→19:14)
[2021-04-11] MEDS: Ferrous Sulfate 325 MG Tab PO SCH (07:19)
[2021-04-11] MEDS: Niacin 500 MG Tab PO SCH ×2 (07:20→17:06)
[2021-04-11] MEDS: Furosemide 20 MG Tab PO SCH ×2 (07:20→11:17)
[2021-04-11] MEDS: Calcium Carbonate 750 MG Tab.Chew PO SCH (07:20)
[2021-04-11] MEDS: Acetaminophen 325 MG Tab PO SCH ×3 (07:21→17:06)
[2021-04-11] MEDS: Ibuprofen 600 MG Tab PO PRN (07:21)
[2021-04-11] MEDS: BUPROPION 300 MG PO SCH (19:15)
[2021-04-11] MEDS: LEVOTHYROXINE SODIUM 137 MCG PO SCH (19:15)
[2021-04-11] MEDS: Simvastatin 10 MG Tab PO SCH (19:15)
[2021-04-12] MEDS: Potassium Chloride 20 MEQ Tab.ER PO SCH ×4 (07:26→20:00)
[2021-04-12] MEDS: Citalopram 20 MG Tab PO SCH (07:26)
[2021-04-12] MEDS: Fludrocortisone 0.1 MG Tab PO SCH ×2 (07:26→20:00)
[2021-04-12] MEDS: Niacin 500 MG Tab PO SCH ×2 (07:27→17:27)
[2021-04-12] MEDS: Bacitracin/Neomycin/Polymyxin B Oint 0.9 GM U/D Packet TOP SCH (07:27)
[2021-04-12] MEDS: Furosemide 20 MG Tab PO SCH ×2 (07:27→12:00)
[2021-04-12] MEDS: Calcium Carbonate 750 MG Tab.Chew PO SCH (07:28)
[2021-04-12] MEDS: Acetaminophen 325 MG Tab PO SCH ×3 (07:29→17:28)
[2021-04-12] MEDS: Cyanocobalamin (Vitamin B12) 1,000 MCG Tab PO SCH (07:30)
[2021-04-12] MEDS: Docusate Sodium 100 MG Cap PO SCH ×2 (07:30→17:27)
[2021-04-12] MEDS: Cholecalciferol (Vitamin D3) 25 MCG Tab PO SCH (07:30)
[2021-04-12] MEDS: Albuterol/Ipratropium 3.0-0.5 MG/3 ML Neb Soln NEB SCH ×4 (07:31→19:58)
[2021-04-12] MEDS: Ferrous Sulfate 325 MG Tab PO SCH (07:32)
[2021-04-12] MEDS: LEVOTHYROXINE SODIUM 137 MCG PO SCH (20:00)
[2021-04-12] MEDS: BUPROPION 300 MG PO SCH (20:01)
[2021-04-12] MEDS: Simvastatin 10 MG Tab PO SCH (20:01)
[2021-04-12] MEDS: Menthol/Methyl Salicylate 85 GM Tube TOP PRN (20:02)
[2021-04-13] MEDS: Albuterol/Ipratropium 3.0-0.5 MG/3 ML Neb Soln NEB SCH ×4 (08:19→19:44)
[2021-04-13] MEDS: Ferrous Sulfate 325 MG Tab PO SCH (08:19)
[2021-04-13] MEDS: Citalopram 20 MG Tab PO SCH (08:19)
[2021-04-13] MEDS: Docusate Sodium 100 MG Cap PO SCH ×2 (08:19→17:24)
[2021-04-13] MEDS: Potassium Chloride 20 MEQ Tab.ER PO SCH ×4 (08:20→19:45)
[2021-04-13] MEDS: Fludrocortisone 0.1 MG Tab PO SCH ×2 (08:20→19:45)
[2021-04-13] MEDS: Niacin 500 MG Tab PO SCH ×2 (08:21→17:24)
[2021-04-13] MEDS: Calcium Carbonate 750 MG Tab.Chew PO SCH (08:21)
[2021-04-13] MEDS: Furosemide 20 MG Tab PO SCH ×2 (08:21→12:16)
[2021-04-13] MEDS: Acetaminophen 325 MG Tab PO SCH ×3 (08:22→17:24)
[2021-04-13] MEDS: Bacitracin/Neomycin/Polymyxin B Oint 0.9 GM U/D Packet TOP SCH (08:23)
[2021-04-13] MEDS: Cholecalciferol (Vitamin D3) 25 MCG Tab PO SCH (08:24)
[2021-04-13] MEDS: Cyanocobalamin (Vitamin B12) 1,000 MCG Tab PO SCH (08:24)
[2021-04-13] MEDS: Magnesium Hydroxide 400 MG/5 ML Susp 30 ML Cup PO PRN (14:14)
[2021-04-13] MEDS: Simvastatin 10 MG Tab PO SCH (19:45)
[2021-04-13] MEDS: BUPROPION 300 MG PO SCH (19:45)
[2021-04-13] MEDS: LEVOTHYROXINE SODIUM 137 MCG PO SCH (19:45)
[2021-04-13] MEDS: Menthol/Methyl Salicylate 85 GM Tube TOP PRN (19:46)
[2021-04-14] MEDS: Albuterol/Ipratropium 3.0-0.5 MG/3 ML Neb Soln NEB SCH ×4 (07:22→19:46)
[2021-04-14] MEDS: Potassium Chloride 20 MEQ Tab.ER PO SCH ×4 (07:56→19:46)
[2021-04-14] MEDS: Furosemide 20 MG Tab PO SCH ×2 (07:56→11:34)
[2021-04-14] MEDS: Fludrocortisone 0.1 MG Tab PO SCH ×2 (07:56→19:46)
[2021-04-14] MEDS: Citalopram 20 MG Tab PO SCH (07:56)
[2021-04-14] MEDS: Docusate Sodium 100 MG Cap PO SCH ×2 (07:58→17:25)
[2021-04-14] MEDS: Ferrous Sulfate 325 MG Tab PO SCH (07:59)
[2021-04-14] MEDS: Niacin 500 MG Tab PO SCH ×2 (07:59→17:25)
[2021-04-14] MEDS: Acetaminophen 325 MG Tab PO SCH ×3 (08:00→17:25)
[2021-04-14] MEDS: Bacitracin/Neomycin/Polymyxin B Oint 0.9 GM U/D Packet TOP SCH (08:00)
[2021-04-14] MEDS: Calcium Carbonate 750 MG Tab.Chew PO SCH (08:01)
[2021-04-14] MEDS: Cyanocobalamin (Vitamin B12) 1,000 MCG Tab PO SCH (08:02)
[2021-04-14] MEDS: Cholecalciferol (Vitamin D3) 25 MCG Tab PO SCH (08:02)
[2021-04-14] MEDS: Polyvinyl Alcohol 1.4% Ophth Soln 15 ML Bottle EYEBOTH PRN (12:01)
[2021-04-14] MEDS: LEVOTHYROXINE SODIUM 137 MCG PO SCH (19:46)
[2021-04-14] MEDS: Ibuprofen 600 MG Tab PO PRN (19:47)
[2021-04-14] MEDS: Simvastatin 10 MG Tab PO SCH (19:47)
[2021-04-14] MEDS: BUPROPION 300 MG PO SCH (19:47)
[2021-04-14] MEDS: Menthol/Methyl Salicylate 85 GM Tube TOP PRN (19:48)
[2021-04-15] MEDS: Citalopram 20 MG Tab PO SCH (07:55)
[2021-04-15] MEDS: Furosemide 20 MG Tab PO SCH ×2 (07:55→11:09)
[2021-04-15] MEDS: Fludrocortisone 0.1 MG Tab PO SCH ×2 (07:55→19:46)
[2021-04-15] MEDS: Potassium Chloride 20 MEQ Tab.ER PO SCH ×4 (07:55→19:46)
[2021-04-15] MEDS: Bacitracin/Neomycin/Polymyxin B Oint 0.9 GM U/D Packet TOP SCH (07:56)
[2021-04-15] MEDS: Niacin 500 MG Tab PO SCH ×2 (07:58→17:14)
[2021-04-15] MEDS: Docusate Sodium 100 MG Cap PO SCH ×2 (07:59→17:13)
[2021-04-15] MEDS: Cyanocobalamin (Vitamin B12) 1,000 MCG Tab PO SCH (07:59)
[2021-04-15] MEDS: Albuterol/Ipratropium 3.0-0.5 MG/3 ML Neb Soln NEB SCH ×4 (07:59→19:45)
[2021-04-15] MEDS: Ferrous Sulfate 325 MG Tab PO SCH (07:59)
[2021-04-15] MEDS: Acetaminophen 325 MG Tab PO SCH ×3 (08:00→17:13)
[2021-04-15] MEDS: Calcium Carbonate 750 MG Tab.Chew PO SCH (08:01)
[2021-04-15] MEDS: Cholecalciferol (Vitamin D3) 25 MCG Tab PO SCH (08:02)
[2021-04-15] MEDS: Bisacodyl 5 MG Tab PO PRN (16:02)
[2021-04-15] MEDS: BUPROPION 300 MG PO SCH (19:46)
[2021-04-15] MEDS: LEVOTHYROXINE SODIUM 137 MCG PO SCH (19:46)
[2021-04-15] MEDS: Simvastatin 10 MG Tab PO SCH (19:46)
[2021-04-15] MEDS: Menthol/Methyl Salicylate 85 GM Tube TOP PRN (19:47)
[2021-04-16] MEDS: Bacitracin/Neomycin/Polymyxin B Oint 0.9 GM U/D Packet TOP SCH (07:29)
[2021-04-16] MEDS: Albuterol/Ipratropium 3.0-0.5 MG/3 ML Neb Soln NEB SCH ×4 (07:29→19:28)
[2021-04-16] MEDS: Docusate Sodium 100 MG Cap PO SCH ×2 (07:30→17:17)
[2021-04-16] MEDS: Citalopram 20 MG Tab PO SCH (07:30)
[2021-04-16] MEDS: Ferrous Sulfate 325 MG Tab PO SCH (07:30)
[2021-04-16] MEDS: Niacin 500 MG Tab PO SCH ×2 (07:31→17:17)
[2021-04-16] MEDS: Potassium Chloride 20 MEQ Tab.ER PO SCH ×4 (07:31→19:28)
[2021-04-16] MEDS: Furosemide 20 MG Tab PO SCH ×2 (07:31→11:16)
[2021-04-16] MEDS: Fludrocortisone 0.1 MG Tab PO SCH ×2 (07:31→19:27)
[2021-04-16] MEDS: Acetaminophen 325 MG Tab PO SCH ×3 (07:32→17:17)
[2021-04-16] MEDS: Calcium Carbonate 750 MG Tab.Chew PO SCH (07:32)
[2021-04-16] MEDS: Cholecalciferol (Vitamin D3) 25 MCG Tab PO SCH (07:33)
[2021-04-16] MEDS: Cyanocobalamin (Vitamin B12) 1,000 MCG Tab PO SCH (07:33)
[2021-04-16] MEDS: Ibuprofen 600 MG Tab PO PRN (17:18)
[2021-04-16] MEDS: LEVOTHYROXINE SODIUM 137 MCG PO SCH (19:28)
[2021-04-16] MEDS: Simvastatin 10 MG Tab PO SCH (19:28)
[2021-04-16] MEDS: BUPROPION 300 MG PO SCH (19:28)
[2021-04-17] MEDS: Albuterol/Ipratropium 3.0-0.5 MG/3 ML Neb Soln NEB SCH ×4 (07:28→19:10)
[2021-04-17] MEDS: Citalopram 20 MG Tab PO SCH (07:29)
[2021-04-17] MEDS: Docusate Sodium 100 MG Cap PO SCH ×2 (07:29→17:50)
[2021-04-17] MEDS: Potassium Chloride 20 MEQ Tab.ER PO SCH ×4 (07:30→19:08)
[2021-04-17] MEDS: Fludrocortisone 0.1 MG Tab PO SCH ×2 (07:30→19:08)
[2021-04-17] MEDS: Ferrous Sulfate 325 MG Tab PO SCH (07:30)
[2021-04-17] MEDS: Bacitracin/Neomycin/Polymyxin B Oint 0.9 GM U/D Packet TOP SCH (07:30)
[2021-04-17] MEDS: Furosemide 20 MG Tab PO SCH ×2 (07:31→11:21)
[2021-04-17] MEDS: Niacin 500 MG Tab PO SCH ×2 (07:31→17:50)
[2021-04-17] MEDS: Calcium Carbonate 750 MG Tab.Chew PO SCH (07:32)
[2021-04-17] MEDS: Acetaminophen 325 MG Tab PO SCH ×3 (07:33→17:51)
[2021-04-17] MEDS: Cyanocobalamin (Vitamin B12) 1,000 MCG Tab PO SCH (07:34)
[2021-04-17] MEDS: Cholecalciferol (Vitamin D3) 25 MCG Tab PO SCH (07:34)
[2021-04-17] MEDS: BUPROPION 300 MG PO SCH (19:09)
[2021-04-17] MEDS: LEVOTHYROXINE SODIUM 137 MCG PO SCH (19:09)
[2021-04-17] MEDS: Simvastatin 10 MG Tab PO SCH (19:09)
[2021-04-18] MEDS: Docusate Sodium 100 MG Cap PO SCH ×2 (07:28→17:11)
[2021-04-18] MEDS: Citalopram 20 MG Tab PO SCH (07:28)
[2021-04-18] MEDS: Albuterol/Ipratropium 3.0-0.5 MG/3 ML Neb Soln NEB SCH ×4 (07:28→19:36)
[2021-04-18] MEDS: Ferrous Sulfate 325 MG Tab PO SCH (07:28)
[2021-04-18] MEDS: Niacin 500 MG Tab PO SCH ×2 (07:29→17:11)
[2021-04-18] MEDS: Potassium Chloride 20 MEQ Tab.ER PO SCH ×4 (07:29→19:37)
[2021-04-18] MEDS: Furosemide 20 MG Tab PO SCH ×2 (07:29→11:27)
[2021-04-18] MEDS: Fludrocortisone 0.1 MG Tab PO SCH ×2 (07:29→19:37)
[2021-04-18] MEDS: Bacitracin/Neomycin/Polymyxin B Oint 0.9 GM U/D Packet TOP SCH (07:30)
[2021-04-18] MEDS: Calcium Carbonate 750 MG Tab.Chew PO SCH (07:30)
[2021-04-18] MEDS: Acetaminophen 325 MG Tab PO SCH ×3 (07:30→17:12)
[2021-04-18] MEDS: Cyanocobalamin (Vitamin B12) 1,000 MCG Tab PO SCH (07:31)
[2021-04-18] MEDS: Cholecalciferol (Vitamin D3) 25 MCG Tab PO SCH (07:31)
[2021-04-18] MEDS: Ibuprofen 600 MG Tab PO PRN ×2 (07:32→19:38)
[2021-04-18] MEDS: LEVOTHYROXINE SODIUM 137 MCG PO SCH (19:37)
[2021-04-18] MEDS: Simvastatin 10 MG Tab PO SCH (19:37)
[2021-04-18] MEDS: BUPROPION 300 MG PO SCH (19:37)
[2021-04-18] MEDS: Menthol/Methyl Salicylate 85 GM Tube TOP PRN (19:39)
[2021-04-19] MEDS: Ibuprofen 600 MG Tab PO PRN ×3 (05:17→19:34)
[2021-04-19] MEDS: Citalopram 20 MG Tab PO SCH (08:16)
[2021-04-19] MEDS: Potassium Chloride 20 MEQ Tab.ER PO SCH ×4 (08:16→19:32)
[2021-04-19] MEDS: Furosemide 20 MG Tab PO SCH ×2 (08:16→12:19)
[2021-04-19] MEDS: Fludrocortisone 0.1 MG Tab PO SCH ×2 (08:16→19:32)
[2021-04-19] MEDS: Acetaminophen 325 MG Tab PO SCH ×3 (08:17→17:00)
[2021-04-19] MEDS: Bacitracin/Neomycin/Polymyxin B Oint 0.9 GM U/D Packet TOP SCH (08:19)
[2021-04-19] MEDS: Niacin 500 MG Tab PO SCH ×2 (08:19→17:00)
[2021-04-19] MEDS: Albuterol/Ipratropium 3.0-0.5 MG/3 ML Neb Soln NEB SCH ×4 (08:19→19:32)
[2021-04-19] MEDS: Docusate Sodium 100 MG Cap PO SCH ×2 (08:20→16:59)
[2021-04-19] MEDS: Ferrous Sulfate 325 MG Tab PO SCH (08:20)
[2021-04-19] MEDS: Bisacodyl 5 MG Tab PO PRN (08:20)
[2021-04-19] MEDS: Calcium Carbonate 750 MG Tab.Chew PO SCH (08:20)
[2021-04-19] MEDS: Cholecalciferol (Vitamin D3) 25 MCG Tab PO SCH (08:21)
[2021-04-19] MEDS: Cyanocobalamin (Vitamin B12) 1,000 MCG Tab PO SCH (08:21)
[2021-04-19] MEDS: Simvastatin 10 MG Tab PO SCH (19:33)
[2021-04-19] MEDS: LEVOTHYROXINE SODIUM 137 MCG PO SCH (19:33)
[2021-04-19] MEDS: BUPROPION 300 MG PO SCH (19:33)
[2021-04-19] MEDS: Menthol/Methyl Salicylate 85 GM Tube TOP PRN (19:34)
[2021-04-20] MEDS: Furosemide 20 MG Tab PO SCH ×2 (08:06→11:57)
[2021-04-20] MEDS: Citalopram 20 MG Tab PO SCH (08:06)
[2021-04-20] MEDS: Potassium Chloride 20 MEQ Tab.ER PO SCH ×4 (08:06→20:11)
[2021-04-20] MEDS: Fludrocortisone 0.1 MG Tab PO SCH ×2 (08:07→20:10)
[2021-04-20] MEDS: Docusate Sodium 100 MG Cap PO SCH ×2 (08:07→17:56)
[2021-04-20] MEDS: Albuterol/Ipratropium 3.0-0.5 MG/3 ML Neb Soln NEB SCH ×4 (08:08→20:08)
[2021-04-20] MEDS: Ferrous Sulfate 325 MG Tab PO SCH (08:09)
[2021-04-20] MEDS: Niacin 500 MG Tab PO SCH ×2 (08:09→17:56)
[2021-04-20] MEDS: Calcium Carbonate 750 MG Tab.Chew PO SCH (08:10)
[2021-04-20] MEDS: Bacitracin/Neomycin/Polymyxin B Oint 0.9 GM U/D Packet TOP SCH (08:10)
[2021-04-20] MEDS: Acetaminophen 325 MG Tab PO SCH ×3 (08:11→17:57)
[2021-04-20] MEDS: Cholecalciferol (Vitamin D3) 25 MCG Tab PO SCH (08:12)
[2021-04-20] MEDS: Cyanocobalamin (Vitamin B12) 1,000 MCG Tab PO SCH (08:12)
[2021-04-20] MEDS: BUPROPION 300 MG PO SCH (20:11)
[2021-04-20] MEDS: LEVOTHYROXINE SODIUM 137 MCG PO SCH (20:11)
[2021-04-20] MEDS: Simvastatin 10 MG Tab PO SCH (20:12)
[2021-04-20] MEDS: Menthol/Methyl Salicylate 85 GM Tube TOP PRN (20:12)
[2021-04-21] MEDS: Potassium Chloride 20 MEQ Tab.ER PO SCH ×4 (07:55→20:12)
[2021-04-21] MEDS: Citalopram 20 MG Tab PO SCH (07:56)
[2021-04-21] MEDS: Docusate Sodium 100 MG Cap PO SCH ×2 (07:56→17:08)
[2021-04-21] MEDS: Furosemide 20 MG Tab PO SCH ×2 (07:56→11:23)
[2021-04-21] MEDS: Fludrocortisone 0.1 MG Tab PO SCH ×2 (07:56→20:12)
[2021-04-21] MEDS: Ferrous Sulfate 325 MG Tab PO SCH (07:57)
[2021-04-21] MEDS: Niacin 500 MG Tab PO SCH ×2 (07:57→17:08)
[2021-04-21] MEDS: Calcium Carbonate 750 MG Tab.Chew PO SCH (07:57)
[2021-04-21] MEDS: Acetaminophen 325 MG Tab PO SCH ×3 (07:58→17:08)
[2021-04-21] MEDS: Cyanocobalamin (Vitamin B12) 1,000 MCG Tab PO SCH (07:58)
[2021-04-21] MEDS: Cholecalciferol (Vitamin D3) 25 MCG Tab PO SCH (07:58)
[2021-04-21] MEDS: Albuterol/Ipratropium 3.0-0.5 MG/3 ML Neb Soln NEB SCH ×4 (08:30→20:09)
[2021-04-21] MEDS: Bacitracin/Neomycin/Polymyxin B Oint 0.9 GM U/D Packet TOP SCH (08:31)
[2021-04-21] MEDS: LEVOTHYROXINE SODIUM 137 MCG PO SCH (20:13)
[2021-04-21] MEDS: BUPROPION 300 MG PO SCH (20:13)
[2021-04-21] MEDS: Simvastatin 10 MG Tab PO SCH (20:13)
[2021-04-21] MEDS: Menthol/Methyl Salicylate 85 GM Tube TOP PRN (20:14)
[2021-04-22] MEDS: Potassium Chloride 20 MEQ Tab.ER PO SCH ×4 (08:11→19:15)
[2021-04-22] MEDS: Fludrocortisone 0.1 MG Tab PO SCH ×2 (08:12→19:14)
[2021-04-22] MEDS: Citalopram 20 MG Tab PO SCH (08:12)
[2021-04-22] MEDS: Ferrous Sulfate 325 MG Tab PO SCH (08:12)
[2021-04-22] MEDS: Docusate Sodium 100 MG Cap PO SCH ×2 (08:12→17:20)
[2021-04-22] MEDS: Furosemide 20 MG Tab PO SCH ×2 (08:12→11:44)
[2021-04-22] MEDS: Niacin 500 MG Tab PO SCH ×2 (08:13→17:20)
[2021-04-22] MEDS: Acetaminophen 325 MG Tab PO SCH ×3 (08:13→17:20)
[2021-04-22] MEDS: Cyanocobalamin (Vitamin B12) 1,000 MCG Tab PO SCH (08:14)
[2021-04-22] MEDS: Cholecalciferol (Vitamin D3) 25 MCG Tab PO SCH (08:14)
[2021-04-22] MEDS: Calcium Carbonate 750 MG Tab.Chew PO SCH (08:14)
[2021-04-22] MEDS: Albuterol/Ipratropium 3.0-0.5 MG/3 ML Neb Soln NEB SCH ×4 (08:38→19:13)
[2021-04-22] MEDS: Bacitracin/Neomycin/Polymyxin B Oint 0.9 GM U/D Packet TOP SCH (08:39)
[2021-04-22] MEDS: Magnesium Hydroxide 400 MG/5 ML Susp 30 ML Cup PO PRN (11:46)
[2021-04-22] MEDS: LEVOTHYROXINE SODIUM 137 MCG PO SCH (19:15)
[2021-04-22] MEDS: BUPROPION 300 MG PO SCH (19:15)
[2021-04-22] MEDS: Simvastatin 10 MG Tab PO SCH (19:15)
[2021-04-23] MEDS: Potassium Chloride 20 MEQ Tab.ER PO SCH ×4 (07:25→19:21)
[2021-04-23] MEDS: Citalopram 20 MG Tab PO SCH (07:26)
[2021-04-23] MEDS: Furosemide 20 MG Tab PO SCH ×2 (07:26→11:53)
[2021-04-23] MEDS: Ferrous Sulfate 325 MG Tab PO SCH (07:26)
[2021-04-23] MEDS: Fludrocortisone 0.1 MG Tab PO SCH ×2 (07:26→19:21)
[2021-04-23] MEDS: Albuterol/Ipratropium 3.0-0.5 MG/3 ML Neb Soln NEB SCH ×4 (07:27→19:21)
[2021-04-23] MEDS: Docusate Sodium 100 MG Cap PO SCH ×2 (07:27→17:03)
[2021-04-23] MEDS: Niacin 500 MG Tab PO SCH ×2 (07:28→17:03)
[2021-04-23] MEDS: Calcium Carbonate 750 MG Tab.Chew PO SCH (07:28)
[2021-04-23] MEDS: Cyanocobalamin (Vitamin B12) 1,000 MCG Tab PO SCH (07:29)
[2021-04-23] MEDS: Bacitracin/Neomycin/Polymyxin B Oint 0.9 GM U/D Packet TOP SCH (07:29)
[2021-04-23] MEDS: Cholecalciferol (Vitamin D3) 25 MCG Tab PO SCH (07:30)
[2021-04-23] MEDS: Acetaminophen 325 MG Tab PO SCH ×3 (07:30→17:03)
[2021-04-23] MEDS: BUPROPION 300 MG PO SCH (19:21)
[2021-04-23] MEDS: Simvastatin 10 MG Tab PO SCH (19:21)
[2021-04-23] MEDS: LEVOTHYROXINE SODIUM 137 MCG PO SCH (19:21)
[2021-04-24] MEDS: Acetaminophen 325 MG Tab PO PRN (01:13)
[2021-04-24] MEDS: Potassium Chloride 20 MEQ Tab.ER PO SCH ×4 (08:06→19:40)
[2021-04-24] MEDS: Furosemide 20 MG Tab PO SCH ×2 (08:07→12:21)
[2021-04-24] MEDS: Citalopram 20 MG Tab PO SCH (08:07)
[2021-04-24] MEDS: Ibuprofen 600 MG Tab PO PRN ×2 (08:07→15:26)
[2021-04-24] MEDS: Fludrocortisone 0.1 MG Tab PO SCH ×2 (08:07→19:40)
[2021-04-24] MEDS: Docusate Sodium 100 MG Cap PO SCH (08:08)
[2021-04-24] MEDS: Acetaminophen 325 MG Tab PO SCH ×3 (08:08→17:17)
[2021-04-24] MEDS: Calcium Carbonate 750 MG Tab.Chew PO SCH (08:08)
[2021-04-24] MEDS: Niacin 500 MG Tab PO SCH ×2 (08:09→17:16)
[2021-04-24] MEDS: Ferrous Sulfate 325 MG Tab PO SCH (08:09)
[2021-04-24] MEDS: Albuterol/Ipratropium 3.0-0.5 MG/3 ML Neb Soln NEB SCH ×4 (08:09→19:40)
[2021-04-24] MEDS: Cholecalciferol (Vitamin D3) 25 MCG Tab PO SCH (08:10)
[2021-04-24] MEDS: Bacitracin/Neomycin/Polymyxin B Oint 0.9 GM U/D Packet TOP SCH (08:10)
[2021-04-24] MEDS: Cyanocobalamin (Vitamin B12) 1,000 MCG Tab PO SCH (08:11)
[2021-04-24] MEDS: Bisacodyl 5 MG Tab PO PRN (12:23)
[2021-04-24] MEDS ORDERED: Docusate Sodium 100 MG Cap PO PRN (14:44)
[2021-04-24] MEDS: LEVOTHYROXINE SODIUM 137 MCG PO SCH (19:41)
[2021-04-24] MEDS: BUPROPION 300 MG PO SCH (19:41)
[2021-04-24] MEDS: Menthol/Methyl Salicylate 85 GM Tube TOP PRN (19:41)
[2021-04-24] MEDS: Simvastatin 10 MG Tab PO SCH (19:41)
[2021-04-25] MEDS: Ibuprofen 600 MG Tab PO PRN ×2 (00:43→12:00)
[2021-04-25] MEDS: Citalopram 20 MG Tab PO SCH (08:27)
[2021-04-25] MEDS: Furosemide 20 MG Tab PO SCH ×2 (08:27→11:57)
[2021-04-25] MEDS: Fludrocortisone 0.1 MG Tab PO SCH ×2 (08:27→19:52)
[2021-04-25] MEDS: Albuterol/Ipratropium 3.0-0.5 MG/3 ML Neb Soln NEB SCH ×4 (08:28→19:51)
[2021-04-25] MEDS: Niacin 500 MG Tab PO SCH ×2 (08:28→17:39)
[2021-04-25] MEDS: Ferrous Sulfate 325 MG Tab PO SCH (08:28)
[2021-04-25] MEDS: Potassium Chloride 20 MEQ Tab.ER PO SCH ×4 (08:28→19:52)
[2021-04-25] MEDS: Acetaminophen 325 MG Tab PO SCH ×3 (08:29→17:40)
[2021-04-25] MEDS: Cyanocobalamin (Vitamin B12) 1,000 MCG Tab PO SCH (08:31)
[2021-04-25] MEDS: Calcium Carbonate 750 MG Tab.Chew PO SCH (08:31)
[2021-04-25] MEDS: Cholecalciferol (Vitamin D3) 25 MCG Tab PO SCH (08:33)
[2021-04-25] MEDS: Bacitracin/Neomycin/Polymyxin B Oint 0.9 GM U/D Packet TOP SCH (08:33)
[2021-04-25] MEDS: BUPROPION 300 MG PO SCH (19:52)
[2021-04-25] MEDS: LEVOTHYROXINE SODIUM 137 MCG PO SCH (19:52)
[2021-04-25] MEDS: Simvastatin 10 MG Tab PO SCH (19:52)
[2021-04-25] MEDS: Menthol/Methyl Salicylate 85 GM Tube TOP PRN (19:53)
[2021-04-26] MEDS: Acetaminophen 325 MG Tab PO PRN (02:07)
[2021-04-26] MEDS: Citalopram 20 MG Tab PO SCH (07:46)
[2021-04-26] MEDS: Albuterol/Ipratropium 3.0-0.5 MG/3 ML Neb Soln NEB SCH ×4 (07:47→19:47)
[2021-04-26] MEDS: Ferrous Sulfate 325 MG Tab PO SCH (07:49)
[2021-04-26] MEDS: Fludrocortisone 0.1 MG Tab PO SCH ×2 (07:49→19:47)
[2021-04-26] MEDS: Furosemide 20 MG Tab PO SCH ×2 (07:50→11:51)
[2021-04-26] MEDS: Potassium Chloride 20 MEQ Tab.ER PO SCH ×4 (07:50→19:47)
[2021-04-26] MEDS: Niacin 500 MG Tab PO SCH ×2 (07:50→17:06)
[2021-04-26] MEDS: Calcium Carbonate 750 MG Tab.Chew PO SCH (07:51)
[2021-04-26] MEDS: Acetaminophen 325 MG Tab PO SCH ×3 (07:52→17:07)
[2021-04-26] MEDS: Cyanocobalamin (Vitamin B12) 1,000 MCG Tab PO SCH (07:53)
[2021-04-26] MEDS: Cholecalciferol (Vitamin D3) 25 MCG Tab PO SCH (07:54)
[2021-04-26] MEDS: Menthol/Methyl Salicylate 85 GM Tube TOP PRN (19:48)
[2021-04-26] MEDS: Simvastatin 10 MG Tab PO SCH (19:48)
[2021-04-26] MEDS: LEVOTHYROXINE SODIUM 137 MCG PO SCH (19:48)
[2021-04-26] MEDS: BUPROPION 300 MG PO SCH (19:48)
[2021-04-26] MEDS: Ibuprofen 600 MG Tab PO PRN (19:49)
[2021-04-27] MEDS: Albuterol/Ipratropium 3.0-0.5 MG/3 ML Neb Soln NEB SCH ×4 (07:15→19:22)
[2021-04-27] MEDS: Citalopram 20 MG Tab PO SCH (07:15)
[2021-04-27] MEDS: Potassium Chloride 20 MEQ Tab.ER PO SCH ×4 (07:16→19:23)
[2021-04-27] MEDS: Fludrocortisone 0.1 MG Tab PO SCH ×2 (07:16→19:22)
[2021-04-27] MEDS: Furosemide 20 MG Tab PO SCH ×2 (07:16→11:13)
[2021-04-27] MEDS: Ferrous Sulfate 325 MG Tab PO SCH (07:16)
[2021-04-27] MEDS: Niacin 500 MG Tab PO SCH ×2 (07:16→17:13)
[2021-04-27] MEDS: Calcium Carbonate 750 MG Tab.Chew PO SCH (07:17)
[2021-04-27] MEDS: Acetaminophen 325 MG Tab PO SCH ×3 (07:17→17:14)
[2021-04-27] MEDS: Cholecalciferol (Vitamin D3) 25 MCG Tab PO SCH (07:18)
[2021-04-27] MEDS: Cyanocobalamin (Vitamin B12) 1,000 MCG Tab PO SCH (07:18)
--- NOTE | 2021-04-27 09:50 | PCM.PN ---
- General Info Date of Service: 04/27/21 Admission Dx/Problem (Free Text): 1. Myotonic dystrophy with secondary weakness 2. CHF 3. O2 dependent COPD Functional Status: Reports: Pain Controlled, Tolerating Diet, Ambulating (With assist), Urinating, New Symptoms (Nonspecific returned bilateral leg pain without cramps, etc.) Pain Score: 6 - Review of Systems General: Reports: Weakness (Stable chronic). Denies: Fever, Fatigue, Malaise, Chills, Night Sweats, Appetite (Good) HEENT: Reports: No Symptoms Pulmonary: Reports: No Symptoms. Denies: Shortness of Breath, Pleuritic Chest Pain, Cough, Sputum, Hemoptysis, Wheezing Cardiovascular: Reports: Edema. Denies: Chest Pain, Palpitations, Dyspnea on Exertion, Orthopnea, PND, Lightheadedness Gastrointestinal: Reports: No Symptoms. Denies: Abdominal Pain, Constipation, Decreased Appetite, Diarrhea, Difficulty Swallowing, Flatus, Hematochezia, Melena, Nausea, Vomiting Genitourinary: Reports: No Symptoms. Denies: Dysuria, Frequency, Burning, Pain, Urgency, Hematuria, Retention, Flank Pain Musculoskeletal: Reports: Leg Pain (As above). Denies: Neck Pain, Shoulder Pain, Arm Pain, Back Pain Skin: Reports: No Symptoms. Denies: Diaphoresis, Bruising Neurological: Reports: Difficulty Walking (Stable chronic), Weakness (Stable chronic). Denies: Confusion, Headache, Numbness, Pre-Existing Deficit, Tingling Psychiatric: Reports: Depression (Mild), Anxiety (Mild). Denies: Confusion, Agitation, Cravings, Hallucinations - Patient Data Vitals - Most Recent: Last Vital Signs Temp 36.7 C 04/26/21 20:00 Pulse 62 04/24/21 08:45 Resp 18 04/24/21 08:45 BP 120/74 04/24/21 08:45 Pulse Ox 96 04/24/21 08:45 Weight - Most Recent: 86.863 kg (Additional 0.7 kg weight gain during the last 2 months after previous 3.3 kg weight gain during the prior 2 months) I&O - Last 24 Hours: Intake & Output 04/26/21 04/27/21 04/27/21 22:59 06:59 14:59 Intake Total 470 Balance 470 Imaging Impressions - Last 24 Hours: None Lab Results Last 24 Hours: None Sandor Results Last 24 Hours: None Med Orders - Current: Current Medications Acetaminophen (Acetaminophen 325 Mg Tab) 650 mg PO TID [facility] Last Admin: 04/27/21 07:17 Dose: 650 mg Documented by: Acetaminophen (Acetaminophen 325 Mg Tab) 650 mg PO Q4H PRN PRN Reason: Pain Last Admin: 04/26/21 02:07 Dose: 650 mg Documented by: Al Hydroxide/Mg Hydroxide (Aluminum Hydroxide/Magnesium Hydroxide/Simethicone Susp 30 Ml Cup) 30 ml PO Q4H PRN PRN Reason: Indigestion Last Admin: 12/24/20 11:15 Dose: 30 ml Documented by: Albuterol/Ipratropium (Albuterol/Ipratropium 3.0-0.5 Mg/3 Ml Neb Soln) 3 ml NEB Q4H PRN PRN Reason: Dyspnea Albuterol/Ipratropium (Albuterol/Ipratropium 3.0-0.5 Mg/3 Ml Neb Soln) 3 ml NEB QID [facility] Last Admin: 04/27/21 07:15 Dose: 3 ml Documented by: Artificial Tears (Polyvinyl Alcohol 1.4% Ophth Soln 15 Ml Bottle) 1 ml EYEBOTH QID PRN PRN Reason: Dry Eyes Last Admin: 04/14/21 12:01 Dose: 2 drop Documented by: Bisacodyl (Bisacodyl 5 Mg Tab) 5 mg PO DAILY PRN PRN Reason: Constipation Last Admin: 04/24/21 12:23 Dose: 5 mg Documented by: Calcium Carbonate/Glycine (Calcium Carbonate 750 Mg Tab.Chew) 1,500 mg PO DAILY [facility] Last Admin: 04/27/21 07:17 Dose: 1,500 mg Documented by: Cholecalciferol (Cholecalciferol (Vitamin D3) 25 Mcg Tab) 25 mcg PO DAILY [facility] Last Admin: 04/27/21 07:18 Dose: 25 mcg Documented by: Citalopram Hydrobromide (Citalopram 20 Mg Tab) 20 mg PO QAM [facility] Last Admin: 04/27/21 07:15 Dose: 20 mg Documented by: Cyanocobalamin (Cyanocobalamin (Vitamin B12) 1,000 Mcg Tab) 1,000 mcg PO QAM [facility] Last Admin: 04/27/21 07:18 Dose: 1,000 mcg Documented by: Docusate Sodium (Docusate Sodium 100 Mg Cap) 100 mg PO BID PRN PRN Reason: Constipation Ferrous Sulfate (Ferrous Sulfate 325 Mg Tab) 325 mg PO WITHBREAKFAST [facility] Last Admin: 04/27/21 07:16 Dose: 325 mg Documented by: Fludrocortisone Acetate (Fludrocortisone 0.1 Mg Tab) 0.1 mg PO BEDTIME [facility] Last Admin: 04/26/21 19:47 Dose: 0.1 mg Documented by: Fludrocortisone Acetate (Fludrocortisone 0.1 Mg Tab) 0.2 mg PO QAM [facility] Last Admin: 04/27/21 07:16 Dose: 0.2 mg Documented by: Furosemide (Furosemide 20 Mg Tab) 20 mg PO BID@0800,1200 [facility] Last Admin: 04/27/21 07:16 Dose: 20 mg Documented by: Guaifenesin/Dextromethorphan (Guaifenesin/Dextromethorphan 100-10 Mg/5 Ml Soln 10 Ml Cup) 10 ml PO Q4H PRN PRN Reason: Cough Last Admin: 12/16/20 02:24 Dose: 10 ml Documented by: Ibuprofen (Ibuprofen 600 Mg Tab) 600 mg PO Q6H PRN PRN Reason: Breakthrough Pain Last Admin: 04/26/21 19:49 Dose: 600 mg Documented by: Magnesium Hydroxide (Magnesium Hydroxide 400 Mg/5 Ml Susp 30 Ml Cup) 30 ml PO DAILY PRN PRN Reason: Constipation Last Admin: 04/22/21 11:46 Dose: 30 ml Documented by: Methyl Salicylate (Menthol/Methyl Salicylate 85 Gm Tube) 1 gm TOP QID PRN PRN Reason: Pain (mild 1-3) Last Admin: 04/26/21 19:48 Dose: 1 applic Documented by: Methylprednisolone Acetate (Methylprednisolone Acetate 80 Mg/Ml Sdv) 80 mg IM ONETIME ONE Stop: 04/27/21 09:42 Neomycin/Polymyxin/Bacitracin (Bacitracin/Neomycin/Polymyxin B Oint 0.9 Gm U/D Packet) 1 each TOP BID PRN PRN Reason: Wound Care Last Admin: 04/07/21 07:23 Dose: 1 each Documented by: Niacin (Niacin 500 Mg Tab) 500 mg PO BID [facility] Last Admin: 04/27/21 07:16 Dose: 500 mg Documented by: Levothyroxine Sodium (137 Mcg Tablets) 137 mcg PO BEDTIME [facility] Last Admin: 04/26/21 19:48 Dose: 137 mcg Documented by: Bupropion Xl 300mg (Tablets) 1 each PO BEDTIME [facility] Last Admin: 04/26/21 19:48 Dose: 1 each Documented by: Potassium Chloride (Potassium Chloride 20 Meq Tab.Er) 40 meq PO QID [facility] Last Admin: 04/27/21 07:16 Dose: 40 meq Documented by: Senna/Docusate Sodium (Docusate Sodium/Sennosides 50-8.6 Mg Tab) 1 tab PO BID [facility] Last Admin: 04/27/21 07:17 Dose: 1 tab Documented by: Simvastatin (Simvastatin 10 Mg Tab) 10 mg PO BEDTIME [facility] Last Admin: 04/26/21 19:48 Dose: 10 mg Documented by: Discontinued Medications Albuterol/Ipratropium (Albuterol/Ipratropium 4 Gm Inhalation [place]) 0 gm INH QID [facility] Last Admin: 01/12/21 12:09 Dose: 1 puff Documented by: Albuterol/Ipratropium (Albuterol/Ipratropium 4 Gm Inhalation [place]) 0 gm INH Q4H PRN PRN Reason: Dyspnea Albuterol/Ipratropium (Albuterol/Ipratropium 3.0-0.5 Mg/3 Ml Neb Soln) 3 ml NEB Q4HRRT PRN PRN Reason: Dyspnea Last Admin: 07/04/20 08:04 Dose: 3 ml Documented by: Albuterol/Ipratropium (Albuterol/Ipratropium 3.0-0.5 Mg/3 Ml Neb Soln) 3 ml NEB QIDRT [facility] Last Admin: 09/27/20 08:09 Dose: 3 ml Documented by: COVID-19 Vaccine mRNA LNP-S (MOD) (PF) (Covid-19 Vacc, Mrna(Moderna)/Pf 100 Mcg/0.5 Ml Vial) 100 mcg IM .ONCE ONE Stop: 11/20/20 11:01 Last Admin: 11/20/20 11:40 Dose: 100 mcg Documented by: COVID-19 Vaccine mRNA LNP-S (MOD) (PF) (Covid-19 Vacc, Mrna(Moderna)/Pf 100 Mcg/0.5 Ml Vial) 100 mcg IM .ONCE ONE Stop: 12/18/20 15:01 Last Admin: 12/18/20 15:18 Dose: 100 mcg Documented by: Cephalexin (Cephalexin 250 Mg Cap) 250 mg PO BID [facility] Stop: 11/20/20 20:00 Cephalexin (Cephalexin 250 Mg Cap) 500 mg PO BID [facility] Stop: 11/20/20 08:01 Last Admin: 11/10/20 13:54 Dose: Not Given Documented by: Docusate Sodium (Docusate Sodium 100 Mg Cap) 100 mg PO BID [facility] Last Admin: 04/24/21 08:08 Dose: 100 mg Documented by: Furosemide (Furosemide 20 Mg Tab) 20 mg PO BID@08,1400 [facility] Last Admin: 12/16/20 08:15 Dose: 20 mg Documented by: Furosemide (Furosemide 20 Mg Tab) 20 mg PO BID [facility] Last Admin: 08/14/20 08:52 Dose: 20 mg Documented by: Influenza Virus Vaccine (Flu Vacc Or5232-02 36mos Up/Pf 60 Mcg/0.5 Ml Syringe) 60 mcg IM .ONCE ONE Stop: 09/05/20 10:01 Last Admin: 09/05/20 10:16 Dose: 60 mcg Documented by: Neomycin/Polymyxin/Bacitracin (Bacitracin/Neomycin/Polymyxin B Oint 0.9 Gm U/D Packet) 1 each TOP BID [facility] Last Admin: 11/10/20 07:40 Dose: 1 each Documented by: Neomycin/Polymyxin/Bacitracin (Bacitracin/Neomycin/Polymyxin B Oint 0.9 Gm U/D Packet) 1 each TOP Q12H [facility] Last Admin: 11/21/20 19:35 Dose: 1 each Documented by: Neomycin/Polymyxin/Bacitracin (Bacitracin/Neomycin/Polymyxin B Oint 0.9 Gm U/D Packet) 1 each TOP DAILY [facility] Stop: 04/25/21 08:01 Last Admin: 04/25/21 08:33 Dose: 1 each Documented by: Nitrofurantoin Macrocrystals (Nitrofurantoin Monohydrate/Macrocrystalline 100 Mg Cap) 100 mg PO BID [facility] Stop: 02/18/21 08:01 Last Admin: 02/18/21 08:24 Dose: 100 mg Documented by: Cephalexin 500mg (Caps) 1 each PO BID [facility] Stop: 11/19/20 18:01 Last Admin: 11/19/20 17:39 Dose: 1 each Documented by: Omeprazole (Omeprazole 20 Mg Cap.Cr) 20 mg PO BIDAC [facility] Stop: 01/01/21 17:31 Last Admin: 01/01/21 17:07 Dose: 20 mg Documented by: - Exam Quality Assessment: Supplemental Oxygen, DVT Prophylaxis. No: Central Li ne/PICC, Skin Breakdown, Restraints General: Alert, Oriented, Cooperative, No Acute Distress HEENT: Pupils Equal, Pupils Reactive, EOMI, Mucous Membr. Moist/[place] Neck: Supple, Trachea Midline, No JVD. No: Lymphadenopathy, Carotid Bruit Lungs: Normal Respiratory Effort, Rales (Mild bilateral baseline). No: Rhonchi, Rub, Wheezing Cardiovascular: Regular Rate, Regular Rhythm, No Murmurs. No: Gallops, Rubs GI/Abdominal Exam: Normal Bowel Sounds, Soft, Non-Tender, No Organomegaly, No Distention, No Abnormal Bruit, No Mass, Other (Obese). No: Guarding (Female) Exam: Deferred Back Exam: Normal Inspection, Full Range of Motion. No: CVA Tenderness (L), CVA Tenderness (R), Muscle Spasm Extremities: Normal Range of Motion, Non-Tender (By exam, however history of chronic nonspecific bilateral leg pain as above), Pedal Edema (Stable mild lymphedema of the lower extremities), Leg Pain (As above). No: Lurdes's Sign Peripheral Pulses: 2+: Radial (L), Radial (R), Dorsalis Pedis (L), Dorsalis Pedis (R) Skin: Warm, Dry, Intact. No: Ecchymosis Neurological: No New Focal Deficit, Other (Stable chronic weakness) Psy/Mental Status: Anxious (Mild), Depressed (Mild). No: Agitated, Hallucinations, Withdrawal Symptoms - Patient Data Result Diagrams: 12/27/20 06:53 12/27/20 06:53 Sepsis Event Note - Evaluation Sepsis Screening Result: No Definite Risk - Problem List & Annotations (1) Steinert myotonic dystrophy syndrome SNOMED Code(s): 52230216 Code(s): G71.11 - MYOTONIC MUSCULAR DYSTROPHY Status: Chronic Priority: Medium Current Visit: Yes Annotation/Comment:: Stable by history and today's exam. Physical therapy in effect. Continue current medical therapy. Repeat leeann carlo blood work, chest x-ray, and EKG scheduled for 05/01/2021, which I will review at that time. (2) CHF, Congestive heart failure SNOMED Code(s): 04285662 Code(s): I50.9 - HEART FAILURE, UNSPECIFIED Status: Chronic Priority: Medium Current Visit: Yes Annotation/Comment:: Patient is still O2 dependent with O2 sat of 96-97% on 3 L/min by nasal cannula. No recent chest pain or anginal type symptoms. Note previous progressive nonspecific bilateral lower lobe atelectasis versus nonspecific changes, right greater than left, with CT scan of the chest performed on 12/29/19. Chest x-ray, PA and lateral, on 04/25/20 showed stable bilateral lower lobe atelectasis with no significant evidence of CHF. Previous CT scan in December as above did show evidence of atelectasis and mild pleural effusions consistent with CHF. No significant CHF by clinical exam today. Yearly blood work, EKG, chest x-ray, etc. were conducted on 04/25/20 with further blood work to be conducted tomorrow as above. Improved/stable lateral wall cardiac ischemia by EKG since April 2019 with resolved first-degree AV block and stable complete bifascicular bundle-branch block. Stable dependent edema with the patient having a mildly persistent weight gain during the last couple of months. The patient previously intentionally lost 13.7 kg based on exam in August 2019. Note previous dietary noncompliance, however much improved. Previous discontinuation of high protein Glucerna supplements as snacks secondary to her previous weight gain. Dietary consultation in effect. Activity level is overall low. An echocardiogram had also been performed on 12/28/19 with excellent ejection fraction of 5060 percent.The patient's CODE STATUS was previously addressed per request from the nursing staff with the patient wishing to continue to be a FULL CODE. Continue to observe closely. Note previous history of PVCs, complete right bundle branch block/bifascicular bundle-branch block, first-degree AV block, severe dyslipidemia hypokalemia, hypophosphatemia, and hyponatremia. Mild persistent hypertriglyceridemia with borderline hypernatremia on 04/25. Note normal magnesium on the potassium, and phosphate levels on 04/25. Continue to observe for now with no further change in medical therapy. Further cardiology workup and/or consultation depending on her clinical course. Note Increase of her Lasix therapy, etc. on 12/21/19 with overall good clinical results. (3) Tardive dyskinesia SNOMED Code(s): 252354199 Code(s): G24.01 - DRUG INDUCED SUBACUTE DYSKINESIA Status: Chronic Priority: Medium Current Visit: Yes Annotation/Comment:: Stable by history. Her perioral tardive dyskinesia actually increased after discontinuation of previous chronic Reglan therapy with no other aggravating medications noted. Neurological status is otherwise stable. Note that patient does have complete dentures uppers and lowers, which does tend to aggravate her problem. No significant clinical relevance at this time with no change in medical therapy for now. (4) COPD (chronic obstructive pulmonary disease) SNOMED Code(s): 51013329 Code(s): J44.9 - CHRONIC OBSTRUCTIVE PULMONARY DISEASE, UNSPECIFIED Status: Chronic Priority: Medium Current Visit: Yes Qualifiers: COPD type: emphysema Emphysema type: panlobular Qualified Code(s): J43.1 - Panlobular emphysema Annotation/Comment:: As above. O2 dependent COPD stable by history with no bronchitic symptoms at this time. Continue current medical therapy. Note chronic bilateral lower lobe atelectasis with incentive spirometry and current O2 therapy at 3 L/m by nasal cannula as above. No evidence of pneumonia or significant bronchitis despite chest x-ray report on 04/25/20. Patient does have a previous history of distant postoperative respiratory distress, although no complications after previous dental surgery. Patient has been changed from previous nebulizer therapy to inhalers secondary to current COVID-19 pandemic. (5) Hyperlipidemia SNOMED Code(s): 98986416 Code(s): E78.5 - HYPERLIPIDEMIA, UNSPECIFIED Status: Chronic Priority: Medium Current Visit: Yes Annotation/Comment:: As above. Previous history of severe dyslipidemia with aggressive medical therapy at this time. Dietary compliance has improved with intentional weight loss previously, however some mildly progressive weight gain during the last 4 months as above. No change in medical therapy for now with previous history of CPK elevation. (6) Hypothyroidism SNOMED Code(s): 65006967 Code(s): E03.9 - HYPOTHYROIDISM, UNSPECIFIED Status: Chronic Priority: Medium Current Visit: Yes Annotation/Comment:: TSH normal on 04/25/20 with repeat yearly blood work scheduled for 05/01 as above. No other thyroid type symptoms. (7) Mixed anxiety and depressive disorder SNOMED Code(s): 159510725 Code(s): F41.8 - OTHER SPECIFIED ANXIETY DISORDERS Status: Chronic Priority: Medium Current Visit: Yes Annotation/Comment:: Stable by history from the patient and nursing staff, although mild persistent anxious and depressive affect today. Observe for now. Previous worsening of her anxiety dep ression disorder with Wellbutrin SR therapy increased on 12/21/19. By my clinical evaluation her symptoms have improved since that time, although she still needs to be watched closely by nursing staff, etc.. Patient is still relatively active with physical therapy, however she is still often alone in her room. The patient was once again encouraged to become more active with social activities, etc. with nursing staff also encouraged to help the patient be more interactive. (8) Osteoarthritis SNOMED Code(s): 282405664 Code(s): M19.90 - UNSPECIFIED OSTEOARTHRITIS, UNSPECIFIED SITE Status: Chronic Priority: Medium Current Visit: Yes Annotation/Comment:: Recent nonspecific bilateral leg pain. IM Depo-Medrol given today. Note previous stable arthritis after reinitiation of ibuprofen,, which she is currently tolerating well. Continue to observe closely. Note previous discontinuation of Ultram. PT in effect as above. Note status post bilateral ankle ORIF secondary to fractures. Previous recurrent falls in February 2019 have improved with no recent significant falls or injuries. Questionable previous right foot ingrown toenail has resolved. (9) Vitamin B12 deficiency (non anemic) SNOMED Code(s): 67122878 Code(s): E53.8 - DEFICIENCY OF OTHER SPECIFIED B GROUP VITAMINS Status: Chronic Priority: Medium Current Visit: Yes Annotation/Comment:: Persistent macrocytosis as above with normal folic acid and vitamin B 12 level on 04/25/2020. Observe for now with repeat blood work on 05/01 as above. (10) Hypoalbuminemia SNOMED Code(s): 911280200 Code(s): E88.09 - [facility] DISORDERS OF PLASMA-PROTEIN METABOLISM, NEC Status: Chronic Priority: Medium Current Visit: Yes Annotation/Comment:: Chronic problem. Glucerna high-protein has been discontinued per recommendations from dietitian secondary to persistent weight gain. Continue high-protein diet as above. Observe for now. (11) Peptic reflux disease SNOMED Code(s): 489570714 Code(s): K21.9 - GASTRO-ESOPHAGEAL REFLUX DISEASE WITHOUT ESOPHAGITIS Status: Chronic Priority: Medium Current Visit: Yes Annotation/Comment:: Previous chronic Prilosec and Pepcid have long since been discontinued secondary to her previous history of refractory C. difficile colitis. Secondary to patient's current ibuprofen use and her abdominal complaints Prilosec was initiated on a twice daily basis for 1 week only in December 2020. Continue to observe closely for now. - Problem List Review Problem List Initiated/Reviewed/Updated: Yes - My Orders Last 24 Hours: My Active Orders 04/27/21 09:41 methylPREDNISolone acetate [Depo-Medrol] 80 mg IM ONETIME ONE 05/01/21 05:11 EKG Documentation Completion [RC] ASDIRECTED Chest 2V [CR] Routine CBC WITH AUTO DIFF [HEME] Routine CK W CKMB [CHEM] Routine COMPREHENSIVE METABOLIC PN,CMP [CHEM] Routine GLYCOSYLATED HEMOGLOBIN,HGBA1C [CHEM] Routine LIPID PANEL [CHEM] Routine MAGNESIUM [CHEM] Routine PRO B-TYPE NATRIUR PEPT,BNPPRO [CHEM] Routine TROPONIN I [CHEM] Routine TSH ULTRASENSITIVE [CHEM] Stat URIC ACID [CHEM] Stat VITAMIN B12 [CHEM] Routine EKG 12 Lead [EK] Stat 05/11/21 11:00 Screening Tomosynthesis Bi [MY] Routine - Assessment Assessment:: As above. - Plan Plan:: As above. Extensive precautions were given to the patient, who is in agreement with the treatment plan. The patient will be recertified for an additional 60 days with long-term chronic swing bed care required secondary to multiple health issues as above. Update yearly blood work, etc. on 05/01/2021 as above. I did give my regards and thanks to the patient today with my planned half-way on 05/23/2021. She is still deciding on her new regular provider. Secondary to multiple healthcare issues as above patient was previously on q. 4-month blood work regimen.
[2021-04-27] MEDS: Ibuprofen 600 MG Tab PO PRN ×2 (11:15→17:15)
[2021-04-27] MEDS ORDERED: methylPREDNISolone Acetate 80 MG/ML SDV IM ONE (12:00)
[2021-04-27] MEDS: BUPROPION 300 MG PO SCH (19:23)
[2021-04-27] MEDS: Simvastatin 10 MG Tab PO SCH (19:23)
[2021-04-27] MEDS: LEVOTHYROXINE SODIUM 137 MCG PO SCH (19:23)
[2021-04-28] MEDS: Albuterol/Ipratropium 3.0-0.5 MG/3 ML Neb Soln NEB SCH ×4 (07:38→19:24)
[2021-04-28] MEDS: Ibuprofen 600 MG Tab PO PRN ×2 (07:39→17:10)
[2021-04-28] MEDS: Cyanocobalamin (Vitamin B12) 1,000 MCG Tab PO SCH (07:40)
[2021-04-28] MEDS: Acetaminophen 325 MG Tab PO SCH ×3 (07:40→17:10)
[2021-04-28] MEDS: Ferrous Sulfate 325 MG Tab PO SCH (07:41)
[2021-04-28] MEDS: Potassium Chloride 20 MEQ Tab.ER PO SCH ×4 (07:41→19:23)
[2021-04-28] MEDS: Fludrocortisone 0.1 MG Tab PO SCH ×2 (07:41→19:23)
[2021-04-28] MEDS: Citalopram 20 MG Tab PO SCH (07:41)
[2021-04-28] MEDS: Cholecalciferol (Vitamin D3) 25 MCG Tab PO SCH (07:41)
[2021-04-28] MEDS: Furosemide 20 MG Tab PO SCH ×2 (07:42→11:03)
[2021-04-28] MEDS: Niacin 500 MG Tab PO SCH ×2 (07:42→17:11)
[2021-04-28] MEDS: Calcium Carbonate 750 MG Tab.Chew PO SCH (07:43)
[2021-04-28] MEDS: Simvastatin 10 MG Tab PO SCH (19:23)
[2021-04-28] MEDS: LEVOTHYROXINE SODIUM 137 MCG PO SCH (19:23)
[2021-04-28] MEDS: BUPROPION 300 MG PO SCH (19:23)
[2021-04-29] MEDS: Albuterol/Ipratropium 3.0-0.5 MG/3 ML Neb Soln NEB SCH ×4 (07:20→19:35)
[2021-04-29] MEDS: Cyanocobalamin (Vitamin B12) 1,000 MCG Tab PO SCH (07:20)
[2021-04-29] MEDS: Cholecalciferol (Vitamin D3) 25 MCG Tab PO SCH (07:20)
[2021-04-29] MEDS: Ibuprofen 600 MG Tab PO PRN (07:21)
[2021-04-29] MEDS: Acetaminophen 325 MG Tab PO SCH ×3 (07:22→17:17)
[2021-04-29] MEDS: Citalopram 20 MG Tab PO SCH (07:22)
[2021-04-29] MEDS: Potassium Chloride 20 MEQ Tab.ER PO SCH ×4 (07:23→19:18)
[2021-04-29] MEDS: Ferrous Sulfate 325 MG Tab PO SCH (07:23)
[2021-04-29] MEDS: Fludrocortisone 0.1 MG Tab PO SCH ×2 (07:23→19:18)
[2021-04-29] MEDS: Furosemide 20 MG Tab PO SCH ×2 (07:24→11:00)
[2021-04-29] MEDS: Niacin 500 MG Tab PO SCH ×2 (07:30→17:16)
[2021-04-29] MEDS: Calcium Carbonate 750 MG Tab.Chew PO SCH (07:31)
[2021-04-29] MEDS: LEVOTHYROXINE SODIUM 137 MCG PO SCH (19:18)
[2021-04-29] MEDS: BUPROPION 300 MG PO SCH (19:19)
[2021-04-29] MEDS: Simvastatin 10 MG Tab PO SCH (19:19)
[2021-04-30] MEDS: Citalopram 20 MG Tab PO SCH (07:43)
[2021-04-30] MEDS: Potassium Chloride 20 MEQ Tab.ER PO SCH ×4 (07:43→19:24)
[2021-04-30] MEDS: Fludrocortisone 0.1 MG Tab PO SCH ×2 (07:43→19:23)
[2021-04-30] MEDS: Albuterol/Ipratropium 3.0-0.5 MG/3 ML Neb Soln NEB SCH ×4 (07:44→19:21)
[2021-04-30] MEDS: Furosemide 20 MG Tab PO SCH ×2 (07:44→11:56)
[2021-04-30] MEDS: Ferrous Sulfate 325 MG Tab PO SCH (07:44)
[2021-04-30] MEDS: Calcium Carbonate 750 MG Tab.Chew PO SCH (07:45)
[2021-04-30] MEDS: Niacin 500 MG Tab PO SCH ×2 (07:45→17:57)
[2021-04-30] MEDS: Acetaminophen 325 MG Tab PO SCH ×3 (07:46→17:57)
[2021-04-30] MEDS: Cholecalciferol (Vitamin D3) 25 MCG Tab PO SCH (07:47)
[2021-04-30] MEDS: Cyanocobalamin (Vitamin B12) 1,000 MCG Tab PO SCH (07:47)
[2021-04-30] MEDS: LEVOTHYROXINE SODIUM 137 MCG PO SCH (19:24)
[2021-04-30] MEDS: BUPROPION 300 MG PO SCH (19:24)
[2021-04-30] MEDS: Simvastatin 10 MG Tab PO SCH (19:24)
[2021-05-01] MEDS: Citalopram 20 MG Tab PO SCH (08:05)
[2021-05-01] MEDS: Potassium Chloride 20 MEQ Tab.ER PO SCH ×4 (08:05→19:42)
[2021-05-01] MEDS: Fludrocortisone 0.1 MG Tab PO SCH ×2 (08:05→19:42)
[2021-05-01] MEDS: Niacin 500 MG Tab PO SCH ×2 (08:06→17:06)
[2021-05-01] MEDS: Furosemide 20 MG Tab PO SCH ×2 (08:06→11:18)
[2021-05-01] MEDS: Calcium Carbonate 750 MG Tab.Chew PO SCH (08:07)
[2021-05-01] MEDS: Acetaminophen 325 MG Tab PO SCH ×3 (08:07→17:07)
[2021-05-01] MEDS: Cholecalciferol (Vitamin D3) 25 MCG Tab PO SCH (08:08)
[2021-05-01] MEDS: Ferrous Sulfate 325 MG Tab PO SCH (08:09)
[2021-05-01] MEDS: Cyanocobalamin (Vitamin B12) 1,000 MCG Tab PO SCH (08:09)
[2021-05-01] MEDS: Albuterol/Ipratropium 3.0-0.5 MG/3 ML Neb Soln NEB SCH ×4 (08:11→19:42)
[2021-05-01 09:18] LABS: CHLORIDE,CL 110 mmol/L (98-107); SODIUM,NA 145 mmol/L (136-145)
[2021-05-01 09:30] LABS: HEMOGLOBIN A1C 5.1 % (4.3-5.7)
[2021-05-01] MEDS: Ibuprofen 600 MG Tab PO PRN ×2 (09:54→19:45)
--- NOTE | 2021-05-01 10:56 | PCM.SN.2 ---
- Free Text/Narrative Note: Laboratory Results - last 24 hr 05/01/21 05/01/21 05/01/21 Range/Units 08:05 08:05 08:05 WBC 8.7 (4.0-10.2) K/uL RBC 4.33 (3.77-5.09) M/uL Hgb 14.7 D (11.7-15.5) g/dL Hct 44.5 (34.0-46.0) % MCV 102.8 H D (84.0-98.0) fL MCH 33.9 H (28.2-33.3) pg MCHC 33.0 (31.7-36.0) g/dL RDW 13.6 (11.2-14.1) % Plt Count 181 (150-350) K/uL Neut % (Auto) 68.3 (45.0-80.0) % Lymph % (Auto) 23.9 (10.0-50.0) % [place] % (Auto) 4.6 (2.0-14.0) % Eos % (Auto) 2.9 (0.0-5.0) % Baso % (Auto) 0.3 (0.0-2.0) % Neut # (Auto) 5.95 (1.40-7.00) K/uL Lymph # (Auto) 2.08 (0.50-3.50) K/uL [place] # (Auto) 0.40 (0.00-1.00) K/uL Eos # (Auto) 0.25 (0.00-0.50) K/uL Baso # (Auto) 0.03 (0.00-0.20) K/uL Sodium 145 (136-145) mmol/L Potassium 4.3 (3.5-5.1) mmol/L Chloride 110 H (98-107) mmol/L Carbon Dioxide 27.0 (21.0-32.0) mmol/L BUN 11 (7-18) mg/dL Creatinine 0.59 (0.51-1.17) mg/dL Est Cr Clr Drug Dosing 95.44 mL/min Estimated GFR (MDRD) > 60 mL/min Glucose 109 H (70-99) mg/dL Hemoglobin A1c 5.1 (4.3-5.7) % Uric Acid (2.6-7.2) mg/dL Calcium 9.6 (8.5-10.1) mg/dL Magnesium 2.3 (1.8-2.4) mg/dL Total Bilirubin 0.3 (0.2-1.0) mg/dL AST 25 (15-37) U/L ALT 47 (12-78) U/L Alkaline Phosphatase 170 H (46-116) IU/L Creatine Kinase 134 (26-308) U/L Creatine Kinase Index 1.4 (0.0-2.5) % CK-MB (CK-2) 1.90 (0.00-3.60) ng/mL Troponin I 0.000 (0.000-0.056) ng/mL NT-Pro-B Natriuret Pep 94 (0-125) pg/mL Total Protein 6.4 (6.4-8.2) g/dL Albumin 3.5 (3.4-5.0) g/dL Triglycerides 212 H (30-150) mg/dL Cholesterol 145 (100-200) mg/dL LDL Cholesterol, Calc 38 (0-100) mg/dL HDL Cholesterol 65 H (40-60) mg/dL Vitamin B12 1389 H (193-986) pg/mL TSH, Ultra Sensitive (0.358-3.740) mIU/mL 05/01/21 Range/Units 08:05 WBC (4.0-10.2) K/uL RBC (3.77-5.09) M/uL Hgb (11.7-15.5) g/dL Hct (34.0-46.0) % MCV (84.0-98.0) fL MCH (28.2-33.3) pg MCHC (31.7-36.0) g/dL RDW (11.2-14.1) % Plt Count (150-350) K/uL Neut % (Auto) (45.0-80.0) % Lymph % (Auto) (10.0-50.0) % [place] % (Auto) (2.0-14.0) % Eos % (Auto) (0.0-5.0) % Baso % (Auto) (0.0-2.0) % Neut # (Auto) (1.40-7.00) K/uL Lymph # (Auto) (0.50-3.50) K/uL [place] # (Auto) (0.00-1.00) K/uL Eos # (Auto) (0.00-0.50) K/uL Baso # (Auto) (0.00-0.20) K/uL Sodium (136-145) mmol/L Potassium (3.5-5.1) mmol/L Chloride (98-107) mmol/L Carbon Dioxide (21.0-32.0) mmol/L BUN (7-18) mg/dL Creatinine (0.51-1.17) mg/dL Est Cr Clr Drug Dosing mL/min Estimated GFR (MDRD) mL/min Glucose (70-99) mg/dL Hemoglobin A1c (4.3-5.7) % Uric Acid 5.6 (2.6-7.2) mg/dL Calcium (8.5-10.1) mg/dL Magnesium (1.8-2.4) mg/dL Total Bilirubin (0.2-1.0) mg/dL AST (15-37) U/L ALT (12-78) U/L Alkaline Phosphatase (46-116) IU/L Creatine Kinase (26-308) U/L Creatine Kinase Index (0.0-2.5) % CK-MB (CK-2) (0.00-3.60) ng/mL Troponin I (0.000-0.056) ng/mL NT-Pro-B Natriuret Pep (0-125) pg/mL Total Protein (6.4-8.2) g/dL Albumin (3.4-5.0) g/dL Triglycerides (30-150) mg/dL Cholesterol (100-200) mg/dL LDL Cholesterol, Calc (0-100) mg/dL HDL Cholesterol (40-60) mg/dL Vitamin B12 (193-986) pg/mL TSH, Ultra Sensitive 3.366 (0.358-3.740) mIU/mL Chest x-ray, PA and lateral, showed evidence of moderate cardiomegaly with mild to moderate CHF, including Krunal B lines mostly in the right lower lobe region with improved findings since previous chest x-ray on 04/25/2020. Stable moderate COPD with mild right lower lobe atelectasis with moderate osteoarthritic and osteoporotic changes noted. Moderate kyphosis. Mildly elevated right hemidiaphragm. No pneumothorax or pulmonary infiltrates. EKG showed a sinus rhythm of 72, HI interval of 0.20 seconds representing a return first-degree AV block, QRS interval 0.14 seconds representing a stable left bundle branch block/complete bifascicular bundle branch block with new T wave inversions in leads I and aVL indicating possible lateral wall cardiac ischemia. Left ventricular hypertrophy by voltage with extreme poor R wave progression in the anterior leads. Patient's vital signs have been stable with no chest pain or anginal type symptoms. Various therapeutic options were discussed with the patient with patient agreeing to be scheduled for a dobutamine Cardiolite stress in this f acility with me on 05/10/2021. Further cardiology consultation and/or work-up depending on her clinical course. Note previous history of hypotension with possibility of changing this procedure to a Lexiscan depending on her vitals at time of scheduled stress test.
[2021-05-01] MEDS: BUPROPION 300 MG PO SCH (19:43)
[2021-05-01] MEDS: LEVOTHYROXINE SODIUM 137 MCG PO SCH (19:43)
[2021-05-01] MEDS: Simvastatin 10 MG Tab PO SCH (19:43)
[2021-05-01] MEDS: Menthol/Methyl Salicylate 85 GM Tube TOP PRN (19:44)
[2021-05-02] MEDS: Albuterol/Ipratropium 3.0-0.5 MG/3 ML Neb Soln NEB SCH ×4 (07:22→19:42)
[2021-05-02] MEDS: Citalopram 20 MG Tab PO SCH (07:23)
[2021-05-02] MEDS: Furosemide 20 MG Tab PO SCH ×2 (07:23→11:12)
[2021-05-02] MEDS: Potassium Chloride 20 MEQ Tab.ER PO SCH ×4 (07:23→19:43)
[2021-05-02] MEDS: Ferrous Sulfate 325 MG Tab PO SCH (07:23)
[2021-05-02] MEDS: Fludrocortisone 0.1 MG Tab PO SCH ×2 (07:23→19:42)
[2021-05-02] MEDS: Calcium Carbonate 750 MG Tab.Chew PO SCH (07:24)
[2021-05-02] MEDS: Niacin 500 MG Tab PO SCH ×2 (07:24→17:10)
[2021-05-02] MEDS: Cyanocobalamin (Vitamin B12) 1,000 MCG Tab PO SCH (07:25)
[2021-05-02] MEDS: Acetaminophen 325 MG Tab PO SCH ×3 (07:25→17:11)
[2021-05-02] MEDS: Cholecalciferol (Vitamin D3) 25 MCG Tab PO SCH (07:26)
[2021-05-02] MEDS: Ibuprofen 600 MG Tab PO PRN (07:26)
[2021-05-02] MEDS: Simvastatin 10 MG Tab PO SCH (19:43)
[2021-05-02] MEDS: LEVOTHYROXINE SODIUM 137 MCG PO SCH (19:43)
[2021-05-02] MEDS: BUPROPION 300 MG PO SCH (19:43)
[2021-05-02] MEDS: Menthol/Methyl Salicylate 85 GM Tube TOP PRN (19:44)
[2021-05-03] MEDS: Citalopram 20 MG Tab PO SCH (07:43)
[2021-05-03] MEDS: Albuterol/Ipratropium 3.0-0.5 MG/3 ML Neb Soln NEB SCH ×4 (07:43→19:38)
[2021-05-03] MEDS: Ferrous Sulfate 325 MG Tab PO SCH (07:43)
[2021-05-03] MEDS: Potassium Chloride 20 MEQ Tab.ER PO SCH ×4 (07:43→19:38)
[2021-05-03] MEDS: Fludrocortisone 0.1 MG Tab PO SCH ×2 (07:43→19:38)
[2021-05-03] MEDS: Furosemide 20 MG Tab PO SCH ×2 (07:44→11:08)
[2021-05-03] MEDS: Niacin 500 MG Tab PO SCH ×2 (07:44→17:12)
[2021-05-03] MEDS: Calcium Carbonate 750 MG Tab.Chew PO SCH (07:45)
[2021-05-03] MEDS: Cholecalciferol (Vitamin D3) 25 MCG Tab PO SCH (07:46)
[2021-05-03] MEDS: Cyanocobalamin (Vitamin B12) 1,000 MCG Tab PO SCH (07:46)
[2021-05-03] MEDS: Acetaminophen 325 MG Tab PO SCH ×3 (07:46→17:12)
[2021-05-03] MEDS: Ibuprofen 600 MG Tab PO PRN ×2 (07:47→19:40)
[2021-05-03] MEDS: BUPROPION 300 MG PO SCH (19:39)
[2021-05-03] MEDS: Simvastatin 10 MG Tab PO SCH (19:39)
[2021-05-03] MEDS: LEVOTHYROXINE SODIUM 137 MCG PO SCH (19:39)
[2021-05-03] MEDS: Menthol/Methyl Salicylate 85 GM Tube TOP PRN (19:40)
[2021-05-04] MEDS: Furosemide 20 MG Tab PO SCH ×2 (08:02→11:54)
[2021-05-04] MEDS: Citalopram 20 MG Tab PO SCH (08:02)
[2021-05-04] MEDS: Fludrocortisone 0.1 MG Tab PO SCH ×2 (08:02→19:57)
[2021-05-04] MEDS: Potassium Chloride 20 MEQ Tab.ER PO SCH ×4 (08:03→19:57)
[2021-05-04] MEDS: Ferrous Sulfate 325 MG Tab PO SCH (08:03)
[2021-05-04] MEDS: Niacin 500 MG Tab PO SCH ×2 (08:03→17:19)
[2021-05-04] MEDS: Acetaminophen 325 MG Tab PO SCH ×3 (08:04→17:19)
[2021-05-04] MEDS: Calcium Carbonate 750 MG Tab.Chew PO SCH (08:04)
[2021-05-04] MEDS: Cholecalciferol (Vitamin D3) 25 MCG Tab PO SCH (08:05)
[2021-05-04] MEDS: Cyanocobalamin (Vitamin B12) 1,000 MCG Tab PO SCH (08:05)
[2021-05-04] MEDS: Albuterol/Ipratropium 3.0-0.5 MG/3 ML Neb Soln NEB SCH ×4 (08:06→19:55)
[2021-05-04] MEDS: BUPROPION 300 MG PO SCH (19:58)
[2021-05-04] MEDS: LEVOTHYROXINE SODIUM 137 MCG PO SCH (19:58)
[2021-05-04] MEDS: Simvastatin 10 MG Tab PO SCH (19:58)
[2021-05-04] MEDS: Menthol/Methyl Salicylate 85 GM Tube TOP PRN (19:59)
[2021-05-05] MEDS: Furosemide 20 MG Tab PO SCH ×2 (07:35→11:27)
[2021-05-05] MEDS: Citalopram 20 MG Tab PO SCH (07:35)
[2021-05-05] MEDS: Fludrocortisone 0.1 MG Tab PO SCH ×2 (07:35→19:53)
[2021-05-05] MEDS: Potassium Chloride 20 MEQ Tab.ER PO SCH ×4 (07:35→19:53)
[2021-05-05] MEDS: Niacin 500 MG Tab PO SCH ×2 (07:36→17:20)
[2021-05-05] MEDS: Acetaminophen 325 MG Tab PO SCH ×3 (07:36→17:20)
[2021-05-05] MEDS: Albuterol/Ipratropium 3.0-0.5 MG/3 ML Neb Soln NEB SCH ×4 (07:36→19:51)
[2021-05-05] MEDS: Ferrous Sulfate 325 MG Tab PO SCH (07:36)
[2021-05-05] MEDS: Cyanocobalamin (Vitamin B12) 1,000 MCG Tab PO SCH (07:37)
[2021-05-05] MEDS: Cholecalciferol (Vitamin D3) 25 MCG Tab PO SCH (07:37)
[2021-05-05] MEDS: Calcium Carbonate 750 MG Tab.Chew PO SCH (07:37)
[2021-05-05] MEDS: BUPROPION 300 MG PO SCH (19:54)
[2021-05-05] MEDS: LEVOTHYROXINE SODIUM 137 MCG PO SCH (19:54)
[2021-05-05] MEDS: Simvastatin 10 MG Tab PO SCH (19:54)
[2021-05-05] MEDS: Menthol/Methyl Salicylate 85 GM Tube TOP PRN (19:55)
[2021-05-06] MEDS: Potassium Chloride 20 MEQ Tab.ER PO SCH ×4 (07:43→19:48)
[2021-05-06] MEDS: Citalopram 20 MG Tab PO SCH (07:44)
[2021-05-06] MEDS: Furosemide 20 MG Tab PO SCH ×2 (07:45→11:38)
[2021-05-06] MEDS: Albuterol/Ipratropium 3.0-0.5 MG/3 ML Neb Soln NEB SCH ×4 (07:45→19:47)
[2021-05-06] MEDS: Fludrocortisone 0.1 MG Tab PO SCH ×2 (07:45→19:48)
[2021-05-06] MEDS: Calcium Carbonate 750 MG Tab.Chew PO SCH (07:46)
[2021-05-06] MEDS: Ferrous Sulfate 325 MG Tab PO SCH (07:46)
[2021-05-06] MEDS: Niacin 500 MG Tab PO SCH ×2 (07:46→17:06)
[2021-05-06] MEDS: Cyanocobalamin (Vitamin B12) 1,000 MCG Tab PO SCH (07:48)
[2021-05-06] MEDS: Cholecalciferol (Vitamin D3) 25 MCG Tab PO SCH (07:48)
[2021-05-06] MEDS: Acetaminophen 325 MG Tab PO SCH ×3 (07:48→17:07)
[2021-05-06] MEDS: BUPROPION 300 MG PO SCH (19:48)
[2021-05-06] MEDS: LEVOTHYROXINE SODIUM 137 MCG PO SCH (19:48)
[2021-05-06] MEDS: Simvastatin 10 MG Tab PO SCH (19:48)
[2021-05-06] MEDS: Menthol/Methyl Salicylate 85 GM Tube TOP PRN (19:49)
[2021-05-07] MEDS: Albuterol/Ipratropium 3.0-0.5 MG/3 ML Neb Soln NEB SCH ×4 (07:19→19:50)
[2021-05-07] MEDS: Ibuprofen 600 MG Tab PO PRN (07:19)
[2021-05-07] MEDS: Potassium Chloride 20 MEQ Tab.ER PO SCH ×4 (07:20→19:53)
[2021-05-07] MEDS: Fludrocortisone 0.1 MG Tab PO SCH ×2 (07:20→19:52)
[2021-05-07] MEDS: Citalopram 20 MG Tab PO SCH (07:20)
[2021-05-07] MEDS: Ferrous Sulfate 325 MG Tab PO SCH (07:20)
[2021-05-07] MEDS: Niacin 500 MG Tab PO SCH ×2 (07:21→17:13)
[2021-05-07] MEDS: Furosemide 20 MG Tab PO SCH ×2 (07:21→11:15)
[2021-05-07] MEDS: Acetaminophen 325 MG Tab PO SCH ×3 (07:22→17:14)
[2021-05-07] MEDS: Calcium Carbonate 750 MG Tab.Chew PO SCH (07:22)
[2021-05-07] MEDS: Cholecalciferol (Vitamin D3) 25 MCG Tab PO SCH (07:23)
[2021-05-07] MEDS: Cyanocobalamin (Vitamin B12) 1,000 MCG Tab PO SCH (07:23)
[2021-05-07] MEDS: BUPROPION 300 MG PO SCH (19:53)
[2021-05-07] MEDS: LEVOTHYROXINE SODIUM 137 MCG PO SCH (19:53)
[2021-05-07] MEDS: Simvastatin 10 MG Tab PO SCH (19:54)
[2021-05-07] MEDS: Menthol/Methyl Salicylate 85 GM Tube TOP PRN (19:54)
[2021-05-08] MEDS: Citalopram 20 MG Tab PO SCH (07:50)
[2021-05-08] MEDS: Albuterol/Ipratropium 3.0-0.5 MG/3 ML Neb Soln NEB SCH ×4 (07:50→19:00)
[2021-05-08] MEDS: Ferrous Sulfate 325 MG Tab PO SCH (07:51)
[2021-05-08] MEDS: Fludrocortisone 0.1 MG Tab PO SCH ×2 (07:51→19:01)
[2021-05-08] MEDS: Furosemide 20 MG Tab PO SCH ×2 (07:52→11:10)
[2021-05-08] MEDS: Niacin 500 MG Tab PO SCH ×2 (07:52→17:19)
[2021-05-08] MEDS: Potassium Chloride 20 MEQ Tab.ER PO SCH ×4 (07:52→19:01)
[2021-05-08] MEDS: Calcium Carbonate 750 MG Tab.Chew PO SCH (07:53)
[2021-05-08] MEDS: Acetaminophen 325 MG Tab PO SCH ×3 (07:53→17:19)
[2021-05-08] MEDS: Ibuprofen 600 MG Tab PO PRN ×2 (07:54→19:03)
[2021-05-08] MEDS: Cyanocobalamin (Vitamin B12) 1,000 MCG Tab PO SCH (07:54)
[2021-05-08] MEDS: Cholecalciferol (Vitamin D3) 25 MCG Tab PO SCH (07:54)
[2021-05-08] MEDS: LEVOTHYROXINE SODIUM 137 MCG PO SCH (19:00)
[2021-05-08] MEDS: BUPROPION 300 MG PO SCH (19:00)
[2021-05-08] MEDS: Simvastatin 10 MG Tab PO SCH (19:00)
[2021-05-08] MEDS: Menthol/Methyl Salicylate 85 GM Tube TOP PRN (19:02)
[2021-05-09] MEDS: Ibuprofen 600 MG Tab PO PRN (00:56)
[2021-05-09] MEDS: Potassium Chloride 20 MEQ Tab.ER PO SCH ×4 (07:31→20:09)
[2021-05-09] MEDS: Fludrocortisone 0.1 MG Tab PO SCH ×2 (07:31→20:09)
[2021-05-09] MEDS: Citalopram 20 MG Tab PO SCH (07:31)
[2021-05-09] MEDS: Albuterol/Ipratropium 3.0-0.5 MG/3 ML Neb Soln NEB SCH ×4 (07:32→20:06)
[2021-05-09] MEDS: Furosemide 20 MG Tab PO SCH ×2 (07:32→11:19)
[2021-05-09] MEDS: Niacin 500 MG Tab PO SCH ×2 (07:33→17:02)
[2021-05-09] MEDS: Calcium Carbonate 750 MG Tab.Chew PO SCH (07:33)
[2021-05-09] MEDS: Ferrous Sulfate 325 MG Tab PO SCH (07:33)
[2021-05-09] MEDS: Cyanocobalamin (Vitamin B12) 1,000 MCG Tab PO SCH (07:34)
[2021-05-09] MEDS: Cholecalciferol (Vitamin D3) 25 MCG Tab PO SCH (07:34)
[2021-05-09] MEDS: Acetaminophen 325 MG Tab PO SCH ×3 (07:34→17:03)
[2021-05-09] MEDS: BUPROPION 300 MG PO SCH (20:10)
[2021-05-09] MEDS: Simvastatin 10 MG Tab PO SCH (20:10)
[2021-05-09] MEDS: LEVOTHYROXINE SODIUM 137 MCG PO SCH (20:10)
[2021-05-09] MEDS: Menthol/Methyl Salicylate 85 GM Tube TOP PRN (20:11)
[2021-05-10] MEDS: Citalopram 20 MG Tab PO SCH (08:12)
[2021-05-10] MEDS: Fludrocortisone 0.1 MG Tab PO SCH ×2 (08:13→20:20)
[2021-05-10] MEDS: Albuterol/Ipratropium 3.0-0.5 MG/3 ML Neb Soln NEB SCH ×4 (08:13→20:17)
[2021-05-10] MEDS: Ferrous Sulfate 325 MG Tab PO SCH (08:13)
[2021-05-10] MEDS: Potassium Chloride 20 MEQ Tab.ER PO SCH ×4 (08:14→20:20)
[2021-05-10] MEDS: Furosemide 20 MG Tab PO SCH ×2 (08:15→11:46)
[2021-05-10] MEDS: Niacin 500 MG Tab PO SCH ×2 (08:15→17:20)
[2021-05-10] MEDS: Calcium Carbonate 750 MG Tab.Chew PO SCH (08:16)
[2021-05-10] MEDS: Acetaminophen 325 MG Tab PO SCH ×3 (08:17→17:21)
[2021-05-10] MEDS: Cholecalciferol (Vitamin D3) 25 MCG Tab PO SCH (08:18)
[2021-05-10] MEDS: Cyanocobalamin (Vitamin B12) 1,000 MCG Tab PO SCH (08:18)
--- NOTE | 2021-05-10 11:23 | PCM.SN.2 ---
- Free Text/Narrative Note: The patient was initially scheduled for a dobutamine Cardiolite stress test today, however is requesting further information despite our previous conversation concerning the importance of this procedure. The risk and benefits of this procedure were once again extensively discussed with the patient now agreeing to have this procedure rescheduled for 05/17/2021 with me in this facility. Extensive precautions were given to the patient, who is in agreement with the treatment plan.
[2021-05-10] MEDS: Ibuprofen 600 MG Tab PO PRN (11:48)
[2021-05-10] MEDS: Simvastatin 10 MG Tab PO SCH (20:21)
[2021-05-10] MEDS: LEVOTHYROXINE SODIUM 137 MCG PO SCH (20:21)
[2021-05-10] MEDS: BUPROPION 300 MG PO SCH (20:21)
[2021-05-10] MEDS: Menthol/Methyl Salicylate 85 GM Tube TOP PRN (20:22)
[2021-05-11] MEDS: Albuterol/Ipratropium 3.0-0.5 MG/3 ML Neb Soln NEB SCH ×4 (07:44→19:56)
[2021-05-11] MEDS: Furosemide 20 MG Tab PO SCH ×2 (07:45→11:49)
[2021-05-11] MEDS: Potassium Chloride 20 MEQ Tab.ER PO SCH ×4 (07:45→19:56)
[2021-05-11] MEDS: Ferrous Sulfate 325 MG Tab PO SCH (07:46)
[2021-05-11] MEDS: Cholecalciferol (Vitamin D3) 25 MCG Tab PO SCH (07:46)
[2021-05-11] MEDS: Citalopram 20 MG Tab PO SCH (07:46)
[2021-05-11] MEDS: Fludrocortisone 0.1 MG Tab PO SCH ×2 (07:46→19:56)
[2021-05-11] MEDS: Niacin 500 MG Tab PO SCH ×2 (07:47→17:48)
[2021-05-11] MEDS: Cyanocobalamin (Vitamin B12) 1,000 MCG Tab PO SCH (07:47)
[2021-05-11] MEDS: Calcium Carbonate 750 MG Tab.Chew PO SCH (07:47)
[2021-05-11] MEDS: Acetaminophen 325 MG Tab PO SCH ×3 (07:48→17:49)
[2021-05-11] MEDS: Ibuprofen 600 MG Tab PO PRN (10:13)
[2021-05-11] MEDS: LEVOTHYROXINE SODIUM 137 MCG PO SCH (19:57)
[2021-05-11] MEDS: Simvastatin 10 MG Tab PO SCH (19:57)
[2021-05-11] MEDS: BUPROPION 300 MG PO SCH (19:57)
[2021-05-11] MEDS: Menthol/Methyl Salicylate 85 GM Tube TOP PRN (19:57)
[2021-05-12] MEDS: Furosemide 20 MG Tab PO SCH ×2 (07:55→11:12)
[2021-05-12] MEDS: Albuterol/Ipratropium 3.0-0.5 MG/3 ML Neb Soln NEB SCH ×4 (07:55→19:46)
[2021-05-12] MEDS: Potassium Chloride 20 MEQ Tab.ER PO SCH ×4 (07:55→19:46)
[2021-05-12] MEDS: Cyanocobalamin (Vitamin B12) 1,000 MCG Tab PO SCH (07:56)
[2021-05-12] MEDS: Niacin 500 MG Tab PO SCH ×2 (07:56→17:29)
[2021-05-12] MEDS: Fludrocortisone 0.1 MG Tab PO SCH ×2 (07:56→19:46)
[2021-05-12] MEDS: Cholecalciferol (Vitamin D3) 25 MCG Tab PO SCH (07:56)
[2021-05-12] MEDS: Citalopram 20 MG Tab PO SCH (07:56)
[2021-05-12] MEDS: Calcium Carbonate 750 MG Tab.Chew PO SCH (07:57)
[2021-05-12] MEDS: Acetaminophen 325 MG Tab PO SCH ×3 (07:57→17:30)
[2021-05-12] MEDS: Ferrous Sulfate 325 MG Tab PO SCH (07:57)
[2021-05-12] MEDS: Docusate Sodium 100 MG Cap PO SCH (17:29)
[2021-05-12] MEDS: BUPROPION 300 MG PO SCH (19:46)
[2021-05-12] MEDS: LEVOTHYROXINE SODIUM 137 MCG PO SCH (19:46)
[2021-05-12] MEDS: Simvastatin 10 MG Tab PO SCH (19:47)
[2021-05-12] MEDS: Menthol/Methyl Salicylate 85 GM Tube TOP PRN (19:47)
[2021-05-13] MEDS: Ibuprofen 600 MG Tab PO PRN (06:16)
[2021-05-13] MEDS: Niacin 500 MG Tab PO SCH ×2 (07:40→17:27)
[2021-05-13] MEDS: Calcium Carbonate 750 MG Tab.Chew PO SCH (07:40)
[2021-05-13] MEDS: Albuterol/Ipratropium 3.0-0.5 MG/3 ML Neb Soln NEB SCH ×4 (07:40→19:54)
[2021-05-13] MEDS: Docusate Sodium 100 MG Cap PO SCH ×2 (07:40→17:28)
[2021-05-13] MEDS: Ferrous Sulfate 325 MG Tab PO SCH (07:41)
[2021-05-13] MEDS: Cholecalciferol (Vitamin D3) 25 MCG Tab PO SCH (07:41)
[2021-05-13] MEDS: Cyanocobalamin (Vitamin B12) 1,000 MCG Tab PO SCH (07:41)
[2021-05-13] MEDS: Acetaminophen 325 MG Tab PO SCH ×3 (07:42→17:27)
[2021-05-13] MEDS: Fludrocortisone 0.1 MG Tab PO SCH ×2 (07:43→19:57)
[2021-05-13] MEDS: Potassium Chloride 20 MEQ Tab.ER PO SCH ×4 (07:43→19:57)
[2021-05-13] MEDS: Furosemide 20 MG Tab PO SCH ×2 (07:43→11:56)
[2021-05-13] MEDS: Citalopram 20 MG Tab PO SCH (07:44)
[2021-05-13] MEDS: LEVOTHYROXINE SODIUM 137 MCG PO SCH (19:57)
[2021-05-13] MEDS: BUPROPION 300 MG PO SCH (19:58)
[2021-05-13] MEDS: Simvastatin 10 MG Tab PO SCH (19:58)
[2021-05-13] MEDS: Menthol/Methyl Salicylate 85 GM Tube TOP PRN (19:59)
[2021-05-14] MEDS: Albuterol/Ipratropium 3.0-0.5 MG/3 ML Neb Soln NEB SCH ×4 (07:13→19:32)
[2021-05-14] MEDS: Docusate Sodium 100 MG Cap PO SCH ×2 (07:13→17:14)
[2021-05-14] MEDS: Citalopram 20 MG Tab PO SCH (07:13)
[2021-05-14] MEDS: Potassium Chloride 20 MEQ Tab.ER PO SCH ×4 (07:14→19:32)
[2021-05-14] MEDS: Ferrous Sulfate 325 MG Tab PO SCH (07:14)
[2021-05-14] MEDS: Fludrocortisone 0.1 MG Tab PO SCH ×2 (07:14→19:32)
[2021-05-14] MEDS: Furosemide 20 MG Tab PO SCH ×2 (07:14→11:14)
[2021-05-14] MEDS: Calcium Carbonate 750 MG Tab.Chew PO SCH (07:15)
[2021-05-14] MEDS: Niacin 500 MG Tab PO SCH ×2 (07:15→17:14)
[2021-05-14] MEDS: Cyanocobalamin (Vitamin B12) 1,000 MCG Tab PO SCH (07:16)
[2021-05-14] MEDS: Acetaminophen 325 MG Tab PO SCH ×3 (07:16→17:15)
[2021-05-14] MEDS: Cholecalciferol (Vitamin D3) 25 MCG Tab PO SCH (07:16)
[2021-05-14] MEDS: Ibuprofen 600 MG Tab PO PRN (07:17)
[2021-05-14] MEDS: Simvastatin 10 MG Tab PO SCH (19:33)
[2021-05-14] MEDS: BUPROPION 300 MG PO SCH (19:33)
[2021-05-14] MEDS: LEVOTHYROXINE SODIUM 137 MCG PO SCH (19:33)
[2021-05-14] MEDS: Menthol/Methyl Salicylate 85 GM Tube TOP PRN (19:43)
[2021-05-15] MEDS: Potassium Chloride 20 MEQ Tab.ER PO SCH ×4 (07:57→19:20)
[2021-05-15] MEDS: Fludrocortisone 0.1 MG Tab PO SCH ×2 (07:57→19:20)
[2021-05-15] MEDS: Cholecalciferol (Vitamin D3) 25 MCG Tab PO SCH (07:57)
[2021-05-15] MEDS: Furosemide 20 MG Tab PO SCH ×2 (07:57→11:59)
[2021-05-15] MEDS: Citalopram 20 MG Tab PO SCH (07:58)
[2021-05-15] MEDS: Docusate Sodium 100 MG Cap PO SCH ×2 (07:58→17:29)
[2021-05-15] MEDS: Niacin 500 MG Tab PO SCH ×2 (07:58→17:29)
[2021-05-15] MEDS: Albuterol/Ipratropium 3.0-0.5 MG/3 ML Neb Soln NEB SCH ×4 (07:59→19:20)
[2021-05-15] MEDS: Ferrous Sulfate 325 MG Tab PO SCH (07:59)
[2021-05-15] MEDS: Acetaminophen 325 MG Tab PO SCH ×3 (07:59→17:29)
[2021-05-15] MEDS: Calcium Carbonate 750 MG Tab.Chew PO SCH (08:00)
[2021-05-15] MEDS: Cyanocobalamin (Vitamin B12) 1,000 MCG Tab PO SCH (08:01)
[2021-05-15] MEDS: LEVOTHYROXINE SODIUM 137 MCG PO SCH (19:20)
[2021-05-15] MEDS: BUPROPION 300 MG PO SCH (19:21)
[2021-05-15] MEDS: Menthol/Methyl Salicylate 85 GM Tube TOP PRN (19:21)
[2021-05-15] MEDS: Simvastatin 10 MG Tab PO SCH (19:21)
[2021-05-16] MEDS: Fludrocortisone 0.1 MG Tab PO SCH ×2 (07:19→19:31)
[2021-05-16] MEDS: Citalopram 20 MG Tab PO SCH (07:19)
[2021-05-16] MEDS: Potassium Chloride 20 MEQ Tab.ER PO SCH ×4 (07:20→19:31)
[2021-05-16] MEDS: Furosemide 20 MG Tab PO SCH ×2 (07:20→11:54)
[2021-05-16] MEDS: Albuterol/Ipratropium 3.0-0.5 MG/3 ML Neb Soln NEB SCH ×4 (07:21→19:30)
[2021-05-16] MEDS: Ferrous Sulfate 325 MG Tab PO SCH (07:21)
[2021-05-16] MEDS: Docusate Sodium 100 MG Cap PO SCH ×2 (07:21→17:34)
[2021-05-16] MEDS: Acetaminophen 325 MG Tab PO SCH ×3 (07:22→17:34)
[2021-05-16] MEDS: Niacin 500 MG Tab PO SCH ×2 (07:22→17:35)
[2021-05-16] MEDS: Calcium Carbonate 750 MG Tab.Chew PO SCH (07:22)
[2021-05-16] MEDS: Cyanocobalamin (Vitamin B12) 1,000 MCG Tab PO SCH (07:23)
[2021-05-16] MEDS: Cholecalciferol (Vitamin D3) 25 MCG Tab PO SCH (07:23)
[2021-05-16] MEDS: BUPROPION 300 MG PO SCH (19:31)
[2021-05-16] MEDS: LEVOTHYROXINE SODIUM 137 MCG PO SCH (19:31)
[2021-05-16] MEDS: Simvastatin 10 MG Tab PO SCH (19:32)
[2021-05-16] MEDS: Menthol/Methyl Salicylate 85 GM Tube TOP PRN (19:33)
[2021-05-17] MEDS: Ferrous Sulfate 325 MG Tab PO SCH ×2 (08:22→08:55)
[2021-05-17] MEDS: Potassium Chloride 20 MEQ Tab.ER PO SCH ×5 (08:22→19:55)
[2021-05-17] MEDS: Fludrocortisone 0.1 MG Tab PO SCH ×3 (08:22→19:55)
[2021-05-17] MEDS: Citalopram 20 MG Tab PO SCH ×2 (08:22→08:54)
[2021-05-17] MEDS: Docusate Sodium 100 MG Cap PO SCH ×3 (08:22→17:33)
[2021-05-17] MEDS: Niacin 500 MG Tab PO SCH ×3 (08:23→17:33)
[2021-05-17] MEDS: Cyanocobalamin (Vitamin B12) 1,000 MCG Tab PO SCH ×2 (08:23→08:59)
[2021-05-17] MEDS: Calcium Carbonate 750 MG Tab.Chew PO SCH ×2 (08:23→08:56)
[2021-05-17] MEDS: Furosemide 20 MG Tab PO SCH ×3 (08:23→12:16)
[2021-05-17] MEDS: Acetaminophen 325 MG Tab PO SCH ×4 (08:23→17:33)
[2021-05-17] MEDS: Cholecalciferol (Vitamin D3) 25 MCG Tab PO SCH ×2 (08:23→08:58)
[2021-05-17] MEDS: Albuterol/Ipratropium 3.0-0.5 MG/3 ML Neb Soln NEB SCH ×4 (08:24→19:52)
[2021-05-17] MEDS ORDERED: DOBUTamine/Dextrose 5%-Water 250 MG/250 ML BAG IV SCH (10:30)
--- NOTE | 2021-05-17 13:27 | PCM.CST ---
- ANIMAL PATHOLOGIST Pre-Procedure Exam Name of Procedure: Reports: Dobutamine-Cardiolyte Stress Test Protocol: Reports: Other (As above) Referring/Regular Provider: Fitz Fontanez Performing Physician: Fitz Fontanez Provisional Diagnosis: Reports: Known Heart Disease (CHF) HPI: The patient is being evaluated for possible progression of her known previous heart disease with history of recurrent CHF. Note that yearly EKG on 05/01/2021 did indicate overall stable left bundle branch block/bifascicular bundle branch block with returned first-degree AV block, however new T wave inversions in leads I and aVL consistent with possible developing lateral wall cardiac ischemia. The patient denies any chest pain/pressure, heart flutter, dizziness, orthostasis, orthopnea, diaphoresis, paresthesias, recent decreased exercise tolerance, or any other anginal-type symptoms, although her overall activity level is extremely low. No recent history of abdominal pain, heartburn, nausea, diarrhea, melena, gross hematochezia, or any food int olerance, including fatty foods, etc.. The patient also denies any recent fever, cough, wheezing, dyspnea, etc.. Cardiac Risk Factors: Reports: Diabetes Mellitus (Prediabetes), Family History of Heart Disease (Father with fatal IN in his 70s. Mother with fatal CHF in her 70s. Paternal uncle with fatal ischemic cardiomyopathy prior to planned heart transplant. Paternal uncle with CABG x2 on 2 separate occasions. Paternal uncles x4 with fatal MIs in their 50s60s.), Hyperlipidemia (Severe dyslipidemia), Known Heart Disease (CHF and complete left bundle branch block/ bifascicular bundle branch block and intermittent first-degree AV block), Other (Continuation of family history: Paternal uncle with IN at age 57 and pacemaker in his 60s. Mother with pacemaker. Patient with O2 dependent COPD.). Denies: Alcohol History, Hypertension, Male Sex, Tobacco History Blood Pressure Systolic: 114 Blood Pressure Diastolic: 57 Pulse Rate (adult): 58 Respiratory Rate: 22 O2 Sat on Room Air at Rest: 96 (3 L/min by nasal cannula) Stated Height: 1.73 m Stated Weight: 85.502 kg - Physical Exam Neck: Reports: Normal Inspection, Supple, Non-Tender, Full Range of Motion. Denies: Carotid Bruit, Lymphadenopathy (L), Lymphadenopathy (R), Thyromegaly Respiratory: No Respiratory Distress, No Accessory Muscle Use, Chest Non-Tender, Decreased Breath Sounds (Bases bilaterally), Rales (Mild diffuse bilateral particularly in the bases stable from previous exams). No: Rhonchi, Wheezing, Pleural Rub Cardiovascular: Reports: Normal Peripheral Pulses, No Gallop, No JVD, No Murmur, No Rub, Bradycardia (Moderate), Extra Beats (Sinus arrhythmia). Denies: No Edema (Dependent edema as below), Gallop/S3, Gallop/S4, Friction Rub GI/Abdominal Exam: Reports: Normal Bowel Sounds, Soft, Non-Tender, No Organomegaly, No Distention, No Abnormal Bruit, No Mass, Other (Obese). Denies: Guarding Extremities: Reports: Normal Range of Motion, Non-Tender, Pedal Edema (Stable mild lymphedema of the lower extremities with Xavier wraps in place bilaterally). Denies: Lurdes's Sign Neuro Exam (Abbreviated): Reports: Alert, Oriented, CN II-XII Intact, Normal Cognition, Normal Gait, No Motor/Sensory Deficits The risks and benefits of the procedure were explained to th: Yes - EKG (prior to procedure) Rate (beats/min): 45 DE/PQ Interval: DE interval of 0.22 seconds representing mild progression of her previous first-degree AV block. Mild diffuse biphasic P waves with stable extreme poor R wave progression in the anterior leads. QRS Interval: 0.16 seconds representing a complete left bundle branch block/bifascicular bundle branch block with resolved previous moderate T wave inversion in leads I and aVL Rhythm: Moderate bradycardia with sinus arrhythmia [place]: Extended left Arrhythmia: Sinus arrhythmia EKG Comparison: Change From Previous EKG (As above since 05/01/2021) Interpretation Comments: 1. Recent lateral wall cardiac ischemia 2. Newly diagnosed moderate bradycardia and sinus arrhythmia 3. Mildly progressive first-degree AV blockrecurrent 4. Complete left bundle branch block/bifascicular bundle branch block - ANIMAL PATHOLOGIST Results Reason for Termination of Procedure: Denies: Arrhythmia, Chest Pain, Patient Fatigue, Reaching Targeted Heart Rate, ST Changes Duration of Exercise (min): 14 Duration of Exercise (sec): 0 Marcelina Scale (x/20): 0 Maximum Heart Rate: 108 70% Max Predicted: 113 85% Max Predicted: 136 100% Max Predicted: 161 Maximum Blood Pressure Systolic: 129 Diastolic: 65 Blood Pressure at Discharge Systolic: 121 Diastolic: 65 Lowest O2 Sat During Exercise: 90 (Room air) ST Changes: Reports: Other (Return of nonspecific ST depressions and T wave inversions in leads I and aVL with dobutamine challenge) Arrhythmia: Reports: PVCs (Frequent), Other (Sinus bradycardia and sinus arrhythmia improved with dobutamine challenge) Interpretation: 1. Lateral wall cardiac ischemia by dobutamine challenge. 2. Returned frequent PVCs with dobutamine challenge Return of EKG to Baseline: No Interventions Needed: Reports: None - Final Diagnosis (1) CHF, Congestive heart failure SNOMED Code(s): 82291182 ICD Code: I50.9 - HEART FAILURE, UNSPECIFIED Status: Chronic Priority: Medium Current Visit: Yes Annotation/Comment: Patient initially refused using O2 during the initial part of the procedure however secondary to baseline bradycardia with sinus arrhythmia I did reinitiate oxygen therapy early in the dobutamine challenge. We did have some problems with her oxygen concentrator, however. Note the patient was previously and is still O2 dependent with O2 sat of 96-97% on 3 L/min by nasal cannula. No recent chest pain or anginal type symptoms, although evidence of lateral wall ischemia both by recent EKG and today's dobutamine challenge as above. Await Cardiolite scan results with multiple risk factors including strong family history, etc. as above. New provider will further assess the patient for possible future cardiology re ferral, however note that the patient's overall activity level is fairly low. She would not tolerate nitroglycerin therapy secondary to her baseline hypotension. An echocardiogram had also been performed on 12/28/19 with excellent ejection fraction of 5060 percent, although this may need to be repeated depending on her clinical course. (2) Bradycardia SNOMED Code(s): 00759178 ICD Code: R00.1 - BRADYCARDIA, UNSPECIFIED Status: Acute Priority: High Current Visit: Yes Onset Date: 05/17/21 Annotation/Comment: New moderate bradycardia and sinus arrhythmia, although this did improve with dobutamine challenge. Nonsymptomatic at this time, however patient may benefit from further cardiology referral, event monitor, etc. Note that the patient is not taking any medications, which would cause this bradycardia at this time. (3) PVCs (premature ventricular contractions) SNOMED Code(s): 17735229 ICD Code: I49.3 - VENTRICULAR PREMATURE DEPOLARIZATION Status: Chronic Priority: Medium Current Visit: Yes Annotation/Comment: Note significant increased frequency of her previous PVCs with dobutamine challenge. Observe for now with consideration of event monitor secondary to her newly diagnosed moderate bradycardia and sinus arrhythmia as above. (4) Steinert myotonic dystrophy syndrome SNOMED Code(s): 64883346 ICD Code: G71.11 - MYOTONIC MUSCULAR DYSTROPHY Status: Chronic Priority: Medium Current Visit: Yes Annotation/Comment: Stable by history and today's exam. Physical therapy in effect. Continue current medical therapy. Repeat yearly blood work, chest x-ray, and EKG scheduled for 05/01/2021, which I will review at that time. (5) Tardive dyskinesia SNOMED Code(s): 209560438 ICD Code: G24.01 - DRUG INDUCED SUBACUTE DYSKINESIA Status: Chronic Priority: Medium Current Visit: Yes Annotation/Comment: Stable by history. Her perioral tardive dyskinesia actually increased after discontinuation of previous chronic Reglan therapy with no other aggravating medications noted. Neurological status is otherwise stable. Note that patient does have complete dentures uppers and lowers, which does tend to aggravate her problem. No significant clinical relevance at this time with no change in medical therapy for now. (6) COPD (chronic obstructive pulmonary disease) SNOMED Code(s): 76359397 ICD Code: J44.9 - CHRONIC OBSTRUCTIVE PULMONARY DISEASE, UNSPECIFIED Status: Chronic Priority: Medium Current Visit: Yes Qualifiers: COPD type: emphysema Emphysema type: panlobular Qualified Code(s): J43.1 - Panlobular emphysema Annotation/Comment: As above. O2 dependent COPD stable by history with no b ronchitic symptoms at this time. Continue current medical therapy. Note chronic bilateral lower lobe atelectasis with incentive spirometry and current O2 therapy at 3 L/m by nasal cannula as above. No evidence of pneumonia or significant bronchitis despite chest x-ray report on 04/25/20. Patient does have a previous history of distant postoperative respiratory distress, although no complications after previous dental surgery. Patient has been changed from previous nebulizer therapy to inhalers secondary to current COVID-19 pandemic. (7) Hyperlipidemia SNOMED Code(s): 22193447 ICD Code: E78.5 - HYPERLIPIDEMIA, UNSPECIFIED Status: Chronic Priority: Medium Current Visit: Yes Annotation/Comment: As above. Previous history of severe dyslipidemia with aggressive medical therapy at this time. Dietary compliance has improved with intentional weight loss previously, however some mildly progressive weight gain during the last 4 months as above. No change in medical therapy for now with previous history of CPK elevation. (8) Hypothyroidism SNOMED Code(s): 89599633 ICD Code: E03.9 - HYPOTHYROIDISM, UNSPECIFIED Status: Chronic Priority: Medium Current Visit: Yes Annotation/Comment: TSH normal on 04/25/20 with repeat yearly blood work scheduled for 05/01 as above. No other thyroid type symptoms. (9) Mixed anxiety and depressive disorder SNOMED Code(s): 378028445 ICD Code: F41.8 - OTHER SPECIFIED ANXIETY DISORDERS Status: Chronic Priority: Medium Current Visit: Yes Annotation/Comment: Stable by history from the patient and nursing staff, although mild persistent anxious and depressive affect today. Observe for now. Previous worsening of her anxiety depression disorder with Wellbutrin SR therapy increased on 12/21/19. By my clinical evaluation her symptoms have improved since that time, although she still needs to be watched closely by nursing staff, etc.. Patient is still relatively active with physical therapy, however she is still often alone in her room. The patient was once again encouraged to become more active with social activities, etc. with nursing staff also encouraged to help the patient be more interactive. (10) Osteoarthritis SNOMED Code(s): 593239314 ICD Code: M19.90 - UNSPECIFIED OSTEOARTHRITIS, UNSPECIFIED SITE Status: Chronic Priority: Medium Current Visit: Yes Annotation/Comment: Recent nonspecific bilateral leg pain. IM Depo-Medrol given today. Note previous stable arthritis after reinitiation of ibuprofen,, which she is currently tolerating well. Continue to observe closely. Note previous discontinuation of Ultram. PT in effect as above. Note status post bilateral ankle ORIF secondary to fractures. Previous recurrent falls in February 2019 have improved with no recent significant falls or injuries. Questionable previous right foot ingrown toenail has resolved. (11) Vitamin B12 deficiency (non anemic) SNOMED Code(s): 77774583 ICD Code: E53.8 - DEFICIENCY OF OTHER SPECIFIED B GROUP VITAMINS Status: Chronic Priority: Medium Current Visit: Yes Annotation/Comment: Persistent macrocytosis as above with normal folic acid and vitamin B 12 level on 04/25/2020. Observe for now with repeat blood work on 6/8 as above. (12) Hypoalbuminemia SNOMED Code(s): 300822112 ICD Code: E88.09 - OTH DISORDERS OF PLASMA-PROTEIN METABOLISM, NEC Status: Chronic Priority: Medium Current Visit: Yes Annotation/Comment: Chronic problem. Glucerna high-protein has been discontinued per recommendations from dietitian secondary to persistent weight gain. Continue high-protein diet as above. Observe for now. (13) Peptic reflux disease SNOMED Code(s): 219005887 ICD Code: K21.9 - GASTRO-ESOPHAGEAL REFLUX DISEASE WITHOUT ESOPHAGITIS Status: Chronic Priority: Medium Current Visit: Yes Annotation/Comment: Previous chronic Prilosec and Pepcid have long since been discontinued secondary to her previous history of refractory C. difficile colitis. Secondary to patient's current ibuprofen use and her abdominal complaints Prilosec was initiated on a twice daily basis for 1 week only in December 2020. Continue to observe closely for now. (14) First degree AV block SNOMED Code(s): 023961163 ICD Code: I44.0 - ATRIOVENTRICULAR BLOCK, FIRST DEGREE Status: Chronic Priority: Medium Current Visit: Yes Annotation/Comment: Stable and recurrent in nature. Continue to observe closely by new regular providers. - Other Patient Instructions: Maintain a 50% maximum exercise restriction as directed until your cardiac status has been clarified and you have been released by your new regular provider with current swing bed care. No medication changes at this time. Extensive precautions were given to the patient, who is in agreement with the treatment plan.
[2021-05-17] MEDS: LEVOTHYROXINE SODIUM 137 MCG PO SCH (19:55)
[2021-05-17] MEDS: BUPROPION 300 MG PO SCH (19:56)
[2021-05-17] MEDS: Simvastatin 10 MG Tab PO SCH (19:56)
[2021-05-17] MEDS: Menthol/Methyl Salicylate 85 GM Tube TOP PRN (19:56)
[2021-05-18] MEDS: Docusate Sodium 100 MG Cap PO SCH ×2 (07:50→17:13)
[2021-05-18] MEDS: Citalopram 20 MG Tab PO SCH (07:50)
[2021-05-18] MEDS: Albuterol/Ipratropium 3.0-0.5 MG/3 ML Neb Soln NEB SCH ×4 (07:50→19:19)
[2021-05-18] MEDS: Furosemide 20 MG Tab PO SCH ×2 (07:51→11:21)
[2021-05-18] MEDS: Ferrous Sulfate 325 MG Tab PO SCH (07:51)
[2021-05-18] MEDS: Fludrocortisone 0.1 MG Tab PO SCH ×2 (07:51→19:18)
[2021-05-18] MEDS: Potassium Chloride 20 MEQ Tab.ER PO SCH ×4 (07:51→19:18)
[2021-05-18] MEDS: Calcium Carbonate 750 MG Tab.Chew PO SCH (07:52)
[2021-05-18] MEDS: Niacin 500 MG Tab PO SCH ×2 (07:52→17:13)
[2021-05-18] MEDS: Acetaminophen 325 MG Tab PO SCH ×3 (07:54→17:13)
[2021-05-18] MEDS: Cholecalciferol (Vitamin D3) 25 MCG Tab PO SCH (07:55)
[2021-05-18] MEDS: Cyanocobalamin (Vitamin B12) 1,000 MCG Tab PO SCH (07:55)
[2021-05-18] MEDS: Ibuprofen 600 MG Tab PO PRN (11:23)
[2021-05-18] MEDS: LEVOTHYROXINE SODIUM 137 MCG PO SCH (19:18)
[2021-05-18] MEDS: BUPROPION 300 MG PO SCH (19:19)
[2021-05-18] MEDS: Simvastatin 10 MG Tab PO SCH (19:19)
[2021-05-19] MEDS: Fludrocortisone 0.1 MG Tab PO SCH ×2 (07:23→19:10)
[2021-05-19] MEDS: Albuterol/Ipratropium 3.0-0.5 MG/3 ML Neb Soln NEB SCH ×4 (07:23→19:10)
[2021-05-19] MEDS: Docusate Sodium 100 MG Cap PO SCH ×2 (07:23→17:05)
[2021-05-19] MEDS: Citalopram 20 MG Tab PO SCH (07:23)
[2021-05-19] MEDS: Ferrous Sulfate 325 MG Tab PO SCH (07:23)
[2021-05-19] MEDS: Furosemide 20 MG Tab PO SCH ×2 (07:24→11:45)
[2021-05-19] MEDS: Potassium Chloride 20 MEQ Tab.ER PO SCH ×4 (07:24→19:10)
[2021-05-19] MEDS: Calcium Carbonate 750 MG Tab.Chew PO SCH (07:24)
[2021-05-19] MEDS: Niacin 500 MG Tab PO SCH ×2 (07:24→17:05)
[2021-05-19] MEDS: Cyanocobalamin (Vitamin B12) 1,000 MCG Tab PO SCH (07:25)
[2021-05-19] MEDS: Acetaminophen 325 MG Tab PO SCH ×3 (07:25→17:06)
[2021-05-19] MEDS: Ibuprofen 600 MG Tab PO PRN (07:26)
[2021-05-19] MEDS: Cholecalciferol (Vitamin D3) 25 MCG Tab PO SCH (07:26)
[2021-05-19] MEDS: Simvastatin 10 MG Tab PO SCH (19:10)
[2021-05-19] MEDS: BUPROPION 300 MG PO SCH (19:10)
[2021-05-19] MEDS: LEVOTHYROXINE SODIUM 137 MCG PO SCH (19:10)
[2021-05-20] MEDS: Acetaminophen 325 MG Tab PO SCH ×3 (07:14→17:14)
[2021-05-20] MEDS: Ibuprofen 600 MG Tab PO PRN (07:14)
[2021-05-20] MEDS: Albuterol/Ipratropium 3.0-0.5 MG/3 ML Neb Soln NEB SCH ×4 (07:16→19:07)
[2021-05-20] MEDS: Docusate Sodium 100 MG Cap PO SCH ×2 (07:16→17:13)
[2021-05-20] MEDS: Cholecalciferol (Vitamin D3) 25 MCG Tab PO SCH (07:16)
[2021-05-20] MEDS: Citalopram 20 MG Tab PO SCH (07:16)
[2021-05-20] MEDS: Cyanocobalamin (Vitamin B12) 1,000 MCG Tab PO SCH (07:16)
[2021-05-20] MEDS: Potassium Chloride 20 MEQ Tab.ER PO SCH ×4 (07:17→19:06)
[2021-05-20] MEDS: Ferrous Sulfate 325 MG Tab PO SCH (07:17)
[2021-05-20] MEDS: Furosemide 20 MG Tab PO SCH ×2 (07:17→11:10)
[2021-05-20] MEDS: Fludrocortisone 0.1 MG Tab PO SCH ×2 (07:17→19:06)
[2021-05-20] MEDS: Niacin 500 MG Tab PO SCH ×2 (07:18→17:14)
[2021-05-20] MEDS: Calcium Carbonate 750 MG Tab.Chew PO SCH (07:18)
[2021-05-20] MEDS: BUPROPION 300 MG PO SCH (19:06)
[2021-05-20] MEDS: LEVOTHYROXINE SODIUM 137 MCG PO SCH (19:06)
[2021-05-20] MEDS: Simvastatin 10 MG Tab PO SCH (19:07)
[2021-05-21] MEDS: Fludrocortisone 0.1 MG Tab PO SCH ×2 (08:09→20:09)
[2021-05-21] MEDS: Furosemide 20 MG Tab PO SCH ×2 (08:09→11:58)
[2021-05-21] MEDS: Citalopram 20 MG Tab PO SCH (08:09)
[2021-05-21] MEDS: Potassium Chloride 20 MEQ Tab.ER PO SCH ×4 (08:09→20:10)
[2021-05-21] MEDS: Docusate Sodium 100 MG Cap PO SCH ×2 (08:10→17:01)
[2021-05-21] MEDS: Ferrous Sulfate 325 MG Tab PO SCH (08:10)
[2021-05-21] MEDS: Albuterol/Ipratropium 3.0-0.5 MG/3 ML Neb Soln NEB SCH ×4 (08:10→20:06)
[2021-05-21] MEDS: Acetaminophen 325 MG Tab PO SCH ×3 (08:11→17:01)
[2021-05-21] MEDS: Calcium Carbonate 750 MG Tab.Chew PO SCH (08:11)
[2021-05-21] MEDS: Niacin 500 MG Tab PO SCH ×2 (08:12→17:02)
[2021-05-21] MEDS: Cholecalciferol (Vitamin D3) 25 MCG Tab PO SCH (08:12)
[2021-05-21] MEDS: Cyanocobalamin (Vitamin B12) 1,000 MCG Tab PO SCH (08:13)
[2021-05-21] MEDS: Ibuprofen 600 MG Tab PO PRN (12:05)
[2021-05-21] MEDS: LEVOTHYROXINE SODIUM 137 MCG PO SCH (20:10)
[2021-05-21] MEDS: Simvastatin 10 MG Tab PO SCH (20:10)
[2021-05-21] MEDS: BUPROPION 300 MG PO SCH (20:10)
[2021-05-21] MEDS: Menthol/Methyl Salicylate 85 GM Tube TOP PRN (20:11)
[2021-05-22] MEDS: Ibuprofen 600 MG Tab PO PRN ×2 (01:09→07:22)
[2021-05-22] MEDS: Albuterol/Ipratropium 3.0-0.5 MG/3 ML Neb Soln NEB SCH ×4 (07:21→19:59)
[2021-05-22] MEDS: Cyanocobalamin (Vitamin B12) 1,000 MCG Tab PO SCH (07:23)
[2021-05-22] MEDS: Cholecalciferol (Vitamin D3) 25 MCG Tab PO SCH (07:23)
[2021-05-22] MEDS: Acetaminophen 325 MG Tab PO SCH ×3 (07:23→17:21)
[2021-05-22] MEDS: Fludrocortisone 0.1 MG Tab PO SCH ×2 (07:24→19:59)
[2021-05-22] MEDS: Ferrous Sulfate 325 MG Tab PO SCH (07:24)
[2021-05-22] MEDS: Docusate Sodium 100 MG Cap PO SCH ×2 (07:24→17:21)
[2021-05-22] MEDS: Citalopram 20 MG Tab PO SCH (07:24)
[2021-05-22] MEDS: Niacin 500 MG Tab PO SCH ×2 (07:25→17:21)
[2021-05-22] MEDS: Potassium Chloride 20 MEQ Tab.ER PO SCH ×4 (07:25→19:59)
[2021-05-22] MEDS: Furosemide 20 MG Tab PO SCH ×2 (07:25→11:25)
[2021-05-22] MEDS: Calcium Carbonate 750 MG Tab.Chew PO SCH (07:25)
[2021-05-22 11:49] VITALS: BP 110/57; PULSE 59
[2021-05-22] MEDS: Simvastatin 10 MG Tab PO SCH (20:00)
[2021-05-22] MEDS: LEVOTHYROXINE SODIUM 137 MCG PO SCH (20:00)
[2021-05-22] MEDS: BUPROPION 300 MG PO SCH (20:00)
[2021-05-23] MEDS: Ibuprofen 600 MG Tab PO PRN (05:26)
[2021-05-23] MEDS: Citalopram 20 MG Tab PO SCH (08:00)
[2021-05-23] MEDS: Furosemide 20 MG Tab PO SCH ×2 (08:01→11:34)
[2021-05-23] MEDS: Potassium Chloride 20 MEQ Tab.ER PO SCH ×2 (08:01→11:34)
[2021-05-23] MEDS: Fludrocortisone 0.1 MG Tab PO SCH (08:01)
[2021-05-23] MEDS: Docusate Sodium 100 MG Cap PO SCH (08:02)
[2021-05-23] MEDS: Calcium Carbonate 750 MG Tab.Chew PO SCH (08:03)
[2021-05-23] MEDS: Albuterol/Ipratropium 3.0-0.5 MG/3 ML Neb Soln NEB SCH ×2 (08:03→11:35)
[2021-05-23] MEDS: Niacin 500 MG Tab PO SCH (08:03)
[2021-05-23] MEDS: Ferrous Sulfate 325 MG Tab PO SCH (08:03)
[2021-05-23] MEDS: Acetaminophen 325 MG Tab PO SCH ×2 (08:04→11:35)
[2021-05-23] MEDS: Cholecalciferol (Vitamin D3) 25 MCG Tab PO SCH (08:05)
[2021-05-23] MEDS: Cyanocobalamin (Vitamin B12) 1,000 MCG Tab PO SCH (08:05)
[2021-05-23] MEDS ORDERED: Albuterol/Ipratropium 3.0-0.5 MG/3 ML Neb Soln NEB PRN (10:07)
[2021-05-23] MEDS ORDERED: Acetaminophen 325 MG Tab PO PRN (10:07)
[2021-05-23] MEDS ORDERED: METHYL SALICYLATE TP PRN (10:07)
[2021-05-23] MEDS ORDERED: Aluminum Hydroxide/Magnesium Hydroxide/Simethicone Susp 30 ML Cup PO PRN (10:07)
[2021-05-23] MEDS ORDERED: Atropine/Diphenoxylate 0.025-2.5 MG Tab PO PRN (10:07)
[2021-05-23] MEDS ORDERED: Ibuprofen 600 MG Tab PO PRN (10:07)
[2021-05-23] MEDS ORDERED: POTASSIUM CHLORIDE 20 MEQ/15 ML PO SCH (14:00)
[2021-05-23] MEDS ORDERED: Niacin 500 MG Tab PO SCH (18:00)
[2021-05-23] MEDS ORDERED: Albuterol/Ipratropium 3.0-0.5 MG/3 ML Neb Soln NEB SCH (20:00)
[2021-05-23] MEDS ORDERED: Non-Formulary Medication 1 Each (Bupropion 100 MG Tablet) PO SCH (20:00)
[2021-05-23] MEDS ORDERED: Non-Formulary Medication 1 Each (Levothyroxine [Levothroid] 137 MCG Tablet) PO SCH (20:00)
[2021-05-23] MEDS ORDERED: Fludrocortisone 0.1 MG Tab PO SCH (20:00)
[2021-05-23] MEDS ORDERED: Simvastatin 10 MG Tab PO SCH (20:00)
[2021-05-24] MEDS ORDERED: Cyanocobalamin (Vitamin B12) 1,000 MCG Tab PO SCH (08:00)
[2021-05-24] MEDS ORDERED: Citalopram 20 MG Tab PO SCH (08:00)
[2021-05-24] MEDS ORDERED: Non-Formulary Medication 1 Each (Cholecalciferol (Vitamin D3) [Vitamin D3] 1,000 UNIT Caps PO SCH (08:00)
[2021-05-24] MEDS ORDERED: Furosemide 20 MG Tab PO SCH (08:00)
[2021-05-24] MEDS ORDERED: Fludrocortisone 0.1 MG Tab PO SCH (08:00)
== END 2021-05-23 15:10 | disposition swing bed (61) | DRG 92 ==
LOC: LL.SWG 10:32
PROVIDERS: ADMIT Family Medicine; ATTEND Family Medicine
DX: G71.11 Myotonic muscular dystrophy (principal); A04.72 Enterocolitis due to Clostridium difficile, not specified as recurrent; I50.9 Heart failure, unspecified; K21.9 Gastro-esophageal reflux disease without esophagitis; J43.1 Panlobular emphysema; R73.9 Hyperglycemia, unspecified; E78.5 Hyperlipidemia, unspecified; E03.9 Hypothyroidism, unspecified; F41.8 Other specified anxiety disorders; I95.1 Orthostatic hypotension; G24.01 Drug induced subacute dyskinesia; E88.09 Other disorders of plasma-protein metabolism, not elsewhere classified; D75.89 Other specified diseases of blood and blood-forming organs; M19.90 Unspecified osteoarthritis, unspecified site; E61.1 Iron deficiency; Z79.899 Other long term (current) drug therapy; Z79.890 Hormone replacement therapy; L60.0 Ingrowing nail; I25.10 Atherosclerotic heart disease of native coronary artery without angina pectoris; R00.1 Bradycardia, unspecified; I49.3 Ventricular premature depolarization; I44.0 Atrioventricular block, first degree; M81.0 Age-related osteoporosis without current pathological fracture
CPT/HCPCS: 0011A; 0012A; 36415; 70250; 71046; 77063; 77067; 78452; 80053; 80061; 81001; 81003; 82150; 82550; 82553; 82607; 83036; 83690; 83735; 83880; 84443; 84484; 84550; 85025; 87086; 87088; 87186; 90686; 91301; 92610-GN; 93005; 94640; 94761; A9270-GY; G0008; J1040; J1250; J7620-GY; U0002

== ENCOUNTER → 2020-05-24 10:26 | Inpatient (IN) | payer MEDICAID ==
[2019-05-24] MEDS: Potassium Chloride 10% 20 MEQ/15 ML Soln 15 ML UD Cup PO SCH ×2 (14:28→19:30)
[2019-05-24] MEDS: Niacin 500 MG Tab PO SCH (17:51)
[2019-05-24] MEDS: Simvastatin 10 MG Tab PO SCH (19:29)
[2019-05-24] MEDS: Albuterol/Ipratropium 3.0-0.5 MG/3 ML Neb Soln NEB SCH (19:29)
[2019-05-24] MEDS: Fludrocortisone 0.1 MG Tab PO SCH (19:29)
[2019-05-24] MEDS: Levothyroxine Sodium 137 MCG TABLET PO SCH (19:29)
[2019-05-24] MEDS: buPROPion 100 MG Tab PO SCH (19:30)
[2019-05-25] MEDS: Fludrocortisone 0.1 MG Tab PO SCH ×2 (08:27→19:11)
[2019-05-25] MEDS: Citalopram 20 MG Tab PO SCH (08:27)
[2019-05-25] MEDS: Niacin 500 MG Tab PO SCH ×2 (08:27→17:54)
[2019-05-25] MEDS: Furosemide 20 MG Tab PO SCH (08:27)
[2019-05-25] MEDS: Albuterol/Ipratropium 3.0-0.5 MG/3 ML Neb Soln NEB SCH ×2 (08:27→19:10)
[2019-05-25] MEDS: Potassium Chloride 10% 20 MEQ/15 ML Soln 15 ML UD Cup PO SCH ×3 (08:28→19:12)
[2019-05-25] MEDS: Cyanocobalamin (Vitamin B12) 1,000 MCG Tab PO SCH (08:29)
[2019-05-25] MEDS: Cholecalciferol (Vitamin D3) 25 MCG Tab PO SCH (08:29)
[2019-05-25] MEDS: Acetaminophen 325 MG Tab PO PRN (17:54)
[2019-05-25] MEDS: Simvastatin 10 MG Tab PO SCH (19:12)
[2019-05-25] MEDS: Levothyroxine Sodium 137 MCG TABLET PO SCH (19:12)
[2019-05-25] MEDS: buPROPion 100 MG Tab PO SCH (19:12)
[2019-05-26] MEDS: Furosemide 20 MG Tab PO SCH (08:23)
[2019-05-26] MEDS: Citalopram 20 MG Tab PO SCH (08:23)
[2019-05-26] MEDS: Fludrocortisone 0.1 MG Tab PO SCH ×2 (08:23→19:49)
[2019-05-26] MEDS: Albuterol/Ipratropium 3.0-0.5 MG/3 ML Neb Soln NEB PRN (08:24)
[2019-05-26] MEDS: Niacin 500 MG Tab PO SCH ×2 (08:24→17:52)
[2019-05-26] MEDS: Albuterol/Ipratropium 3.0-0.5 MG/3 ML Neb Soln NEB SCH ×2 (08:24→19:49)
[2019-05-26] MEDS: Potassium Chloride 10% 20 MEQ/15 ML Soln 15 ML UD Cup PO SCH ×3 (08:25→19:48)
[2019-05-26] MEDS: Cyanocobalamin (Vitamin B12) 1,000 MCG Tab PO SCH (08:26)
[2019-05-26] MEDS: Cholecalciferol (Vitamin D3) 25 MCG Tab PO SCH (08:49)
[2019-05-26] MEDS: Simvastatin 10 MG Tab PO SCH (19:48)
[2019-05-26] MEDS: buPROPion 100 MG Tab PO SCH (19:48)
[2019-05-26] MEDS: Levothyroxine Sodium 137 MCG TABLET PO SCH (19:49)
[2019-05-27] MEDS: Fludrocortisone 0.1 MG Tab PO SCH ×2 (08:08→19:19)
[2019-05-27] MEDS: Furosemide 20 MG Tab PO SCH (08:08)
[2019-05-27] MEDS: Citalopram 20 MG Tab PO SCH (08:08)
[2019-05-27] MEDS: Potassium Chloride 10% 20 MEQ/15 ML Soln 15 ML UD Cup PO SCH ×3 (08:09→19:20)
[2019-05-27] MEDS: Albuterol/Ipratropium 3.0-0.5 MG/3 ML Neb Soln NEB SCH ×2 (08:09→19:20)
[2019-05-27] MEDS: Niacin 500 MG Tab PO SCH ×2 (08:09→17:54)
[2019-05-27] MEDS: Cyanocobalamin (Vitamin B12) 1,000 MCG Tab PO SCH (08:10)
[2019-05-27] MEDS: Cholecalciferol (Vitamin D3) 25 MCG Tab PO SCH (08:10)
[2019-05-27] MEDS: IBUPROFEN 600 MG PO PRN (17:55)
[2019-05-27] MEDS: Simvastatin 10 MG Tab PO SCH (19:19)
[2019-05-27] MEDS: Levothyroxine Sodium 137 MCG TABLET PO SCH (19:19)
[2019-05-27] MEDS: buPROPion 100 MG Tab PO SCH (19:21)
[2019-05-28] MEDS: Citalopram 20 MG Tab PO SCH (07:23)
[2019-05-28] MEDS: Albuterol/Ipratropium 3.0-0.5 MG/3 ML Neb Soln NEB SCH ×2 (07:24→19:16)
[2019-05-28] MEDS: Fludrocortisone 0.1 MG Tab PO SCH ×2 (07:24→19:17)
[2019-05-28] MEDS: Potassium Chloride 10% 20 MEQ/15 ML Soln 15 ML UD Cup PO SCH ×3 (07:25→19:17)
[2019-05-28] MEDS: Furosemide 20 MG Tab PO SCH (07:25)
[2019-05-28] MEDS: Niacin 500 MG Tab PO SCH ×2 (07:25→17:23)
[2019-05-28] MEDS: Cyanocobalamin (Vitamin B12) 1,000 MCG Tab PO SCH (07:26)
[2019-05-28] MEDS: Cholecalciferol (Vitamin D3) 25 MCG Tab PO SCH (07:26)
[2019-05-28] MEDS: Simvastatin 10 MG Tab PO SCH (19:16)
[2019-05-28] MEDS: buPROPion 100 MG Tab PO SCH (19:17)
[2019-05-28] MEDS: Levothyroxine Sodium 137 MCG TABLET PO SCH (19:17)
[2019-05-29] MEDS: Menthol/Methyl Salicylate 85 GM Tube TOP PRN (02:15)
[2019-05-29] MEDS: Potassium Chloride 10% 20 MEQ/15 ML Soln 15 ML UD Cup PO SCH ×3 (08:05→19:08)
[2019-05-29] MEDS: Fludrocortisone 0.1 MG Tab PO SCH ×2 (08:06→19:08)
[2019-05-29] MEDS: Citalopram 20 MG Tab PO SCH (08:06)
[2019-05-29] MEDS: Furosemide 20 MG Tab PO SCH (08:06)
[2019-05-29] MEDS: Albuterol/Ipratropium 3.0-0.5 MG/3 ML Neb Soln NEB SCH ×2 (08:06→19:07)
[2019-05-29] MEDS: Niacin 500 MG Tab PO SCH ×2 (08:07→17:41)
[2019-05-29] MEDS: Cholecalciferol (Vitamin D3) 25 MCG Tab PO SCH (08:07)
[2019-05-29] MEDS: Cyanocobalamin (Vitamin B12) 1,000 MCG Tab PO SCH (08:07)
[2019-05-29] MEDS: buPROPion 100 MG Tab PO SCH (19:08)
[2019-05-29] MEDS: Levothyroxine Sodium 137 MCG TABLET PO SCH (19:08)
[2019-05-29] MEDS: Simvastatin 10 MG Tab PO SCH (19:08)
[2019-05-30] MEDS: Citalopram 20 MG Tab PO SCH (08:05)
[2019-05-30] MEDS: Fludrocortisone 0.1 MG Tab PO SCH ×2 (08:06→19:16)
[2019-05-30] MEDS: Furosemide 20 MG Tab PO SCH (08:06)
[2019-05-30] MEDS: Albuterol/Ipratropium 3.0-0.5 MG/3 ML Neb Soln NEB SCH ×2 (08:06→19:15)
[2019-05-30] MEDS: Niacin 500 MG Tab PO SCH ×2 (08:06→18:05)
[2019-05-30] MEDS: Cholecalciferol (Vitamin D3) 25 MCG Tab PO SCH (08:07)
[2019-05-30] MEDS: Cyanocobalamin (Vitamin B12) 1,000 MCG Tab PO SCH (08:07)
[2019-05-30] MEDS: Potassium Chloride 10% 20 MEQ/15 ML Soln 15 ML UD Cup PO SCH ×3 (08:07→19:16)
[2019-05-30] MEDS: IBUPROFEN 600 MG PO PRN (18:06)
[2019-05-30] MEDS: buPROPion 100 MG Tab PO SCH (19:16)
[2019-05-30] MEDS: Levothyroxine Sodium 137 MCG TABLET PO SCH (19:16)
[2019-05-30] MEDS: Simvastatin 10 MG Tab PO SCH (19:16)
[2019-05-31] MEDS: Citalopram 20 MG Tab PO SCH (07:40)
[2019-05-31] MEDS: Niacin 500 MG Tab PO SCH ×2 (07:41→18:07)
[2019-05-31] MEDS: Albuterol/Ipratropium 3.0-0.5 MG/3 ML Neb Soln NEB SCH ×2 (07:41→20:01)
[2019-05-31] MEDS: Furosemide 20 MG Tab PO SCH (07:41)
[2019-05-31] MEDS: Fludrocortisone 0.1 MG Tab PO SCH ×2 (07:41→20:02)
[2019-05-31] MEDS: Cholecalciferol (Vitamin D3) 25 MCG Tab PO SCH (07:42)
[2019-05-31] MEDS: Cyanocobalamin (Vitamin B12) 1,000 MCG Tab PO SCH (07:42)
[2019-05-31] MEDS: IBUPROFEN 600 MG PO PRN (07:43)
[2019-05-31] MEDS: Potassium Chloride 10% 20 MEQ/15 ML Soln 15 ML UD Cup PO SCH ×3 (07:44→20:04)
[2019-05-31] MEDS: Levothyroxine Sodium 137 MCG TABLET PO SCH (20:02)
[2019-05-31] MEDS: buPROPion 100 MG Tab PO SCH (20:03)
[2019-05-31] MEDS: Simvastatin 10 MG Tab PO SCH (20:03)
[2019-06-01] MEDS: Potassium Chloride 10% 20 MEQ/15 ML Soln 15 ML UD Cup PO SCH ×3 (08:31→19:25)
[2019-06-01] MEDS: Citalopram 20 MG Tab PO SCH (08:31)
[2019-06-01] MEDS: Albuterol/Ipratropium 3.0-0.5 MG/3 ML Neb Soln NEB SCH ×2 (08:32→19:23)
[2019-06-01] MEDS: Niacin 500 MG Tab PO SCH ×2 (08:32→17:13)
[2019-06-01] MEDS: Furosemide 20 MG Tab PO SCH (08:32)
[2019-06-01] MEDS: Fludrocortisone 0.1 MG Tab PO SCH ×2 (08:32→19:24)
[2019-06-01] MEDS: Cyanocobalamin (Vitamin B12) 1,000 MCG Tab PO SCH (08:33)
[2019-06-01] MEDS: Cholecalciferol (Vitamin D3) 25 MCG Tab PO SCH (08:33)
[2019-06-01] MEDS: buPROPion 100 MG Tab PO SCH (19:24)
[2019-06-01] MEDS: Simvastatin 10 MG Tab PO SCH (19:24)
[2019-06-01] MEDS: Levothyroxine Sodium 137 MCG TABLET PO SCH (19:24)
[2019-06-01] MEDS: Acetaminophen 325 MG Tab PO PRN (19:28)
[2019-06-02] MEDS: Albuterol/Ipratropium 3.0-0.5 MG/3 ML Neb Soln NEB SCH ×2 (07:16→19:57)
[2019-06-02] MEDS: IBUPROFEN 600 MG PO PRN (07:17)
[2019-06-02] MEDS: Potassium Chloride 10% 20 MEQ/15 ML Soln 15 ML UD Cup PO SCH ×3 (07:18→19:59)
[2019-06-02] MEDS: Citalopram 20 MG Tab PO SCH (07:19)
[2019-06-02] MEDS: Furosemide 20 MG Tab PO SCH (07:19)
[2019-06-02] MEDS: Fludrocortisone 0.1 MG Tab PO SCH ×2 (07:19→19:59)
[2019-06-02] MEDS: Cyanocobalamin (Vitamin B12) 1,000 MCG Tab PO SCH (07:20)
[2019-06-02] MEDS: Niacin 500 MG Tab PO SCH ×2 (07:20→17:15)
[2019-06-02] MEDS: Cholecalciferol (Vitamin D3) 25 MCG Tab PO SCH (07:20)
[2019-06-02] MEDS: buPROPion 100 MG Tab PO SCH (19:58)
[2019-06-02] MEDS: Levothyroxine Sodium 137 MCG TABLET PO SCH (19:58)
[2019-06-02] MEDS: Simvastatin 10 MG Tab PO SCH (19:58)
[2019-06-03] MEDS: Albuterol/Ipratropium 3.0-0.5 MG/3 ML Neb Soln NEB SCH ×2 (08:27→19:19)
[2019-06-03] MEDS: Citalopram 20 MG Tab PO SCH (08:27)
[2019-06-03] MEDS: Furosemide 20 MG Tab PO SCH (08:27)
[2019-06-03] MEDS: Fludrocortisone 0.1 MG Tab PO SCH ×2 (08:27→19:21)
[2019-06-03] MEDS: Niacin 500 MG Tab PO SCH ×2 (08:28→18:00)
[2019-06-03] MEDS: Cyanocobalamin (Vitamin B12) 1,000 MCG Tab PO SCH (08:28)
[2019-06-03] MEDS: Cholecalciferol (Vitamin D3) 25 MCG Tab PO SCH (08:28)
[2019-06-03] MEDS: Potassium Chloride 10% 20 MEQ/15 ML Soln 15 ML UD Cup PO SCH ×3 (08:29→19:22)
[2019-06-03] MEDS: Simvastatin 10 MG Tab PO SCH (19:21)
[2019-06-03] MEDS: buPROPion 100 MG Tab PO SCH (19:21)
[2019-06-03] MEDS: Levothyroxine Sodium 137 MCG TABLET PO SCH (19:21)
[2019-06-04] MEDS: Fludrocortisone 0.1 MG Tab PO SCH ×2 (08:11→19:20)
[2019-06-04] MEDS: Citalopram 20 MG Tab PO SCH (08:11)
[2019-06-04] MEDS: Cholecalciferol (Vitamin D3) 25 MCG Tab PO SCH (08:12)
[2019-06-04] MEDS: Furosemide 20 MG Tab PO SCH (08:12)
[2019-06-04] MEDS: IBUPROFEN 600 MG PO PRN (08:12)
[2019-06-04] MEDS: Albuterol/Ipratropium 3.0-0.5 MG/3 ML Neb Soln NEB SCH ×2 (08:13→19:21)
[2019-06-04] MEDS: Niacin 500 MG Tab PO SCH ×2 (08:13→17:59)
[2019-06-04] MEDS: Cyanocobalamin (Vitamin B12) 1,000 MCG Tab PO SCH (08:13)
[2019-06-04] MEDS: Potassium Chloride 10% 20 MEQ/15 ML Soln 15 ML UD Cup PO SCH ×3 (08:14→19:20)
[2019-06-04] MEDS: buPROPion 100 MG Tab PO SCH (19:20)
[2019-06-04] MEDS: Levothyroxine Sodium 137 MCG TABLET PO SCH (19:20)
[2019-06-04] MEDS: Simvastatin 10 MG Tab PO SCH (19:21)
[2019-06-05] MEDS: Potassium Chloride 10% 20 MEQ/15 ML Soln 15 ML UD Cup PO SCH ×3 (07:24→19:21)
[2019-06-05] MEDS: Albuterol/Ipratropium 3.0-0.5 MG/3 ML Neb Soln NEB SCH ×2 (07:25→19:22)
[2019-06-05] MEDS: Furosemide 20 MG Tab PO SCH (07:25)
[2019-06-05] MEDS: Citalopram 20 MG Tab PO SCH (07:25)
[2019-06-05] MEDS: Niacin 500 MG Tab PO SCH ×2 (07:25→17:09)
[2019-06-05] MEDS: Fludrocortisone 0.1 MG Tab PO SCH ×2 (07:25→19:22)
[2019-06-05] MEDS: Cyanocobalamin (Vitamin B12) 1,000 MCG Tab PO SCH (07:26)
[2019-06-05] MEDS: Cholecalciferol (Vitamin D3) 25 MCG Tab PO SCH (07:26)
[2019-06-05] MEDS: IBUPROFEN 600 MG PO PRN (13:03)
[2019-06-05] MEDS: Simvastatin 10 MG Tab PO SCH (19:21)
[2019-06-05] MEDS: buPROPion 100 MG Tab PO SCH (19:22)
[2019-06-05] MEDS: Levothyroxine Sodium 137 MCG TABLET PO SCH (19:22)
[2019-06-06] MEDS: Albuterol/Ipratropium 3.0-0.5 MG/3 ML Neb Soln NEB SCH ×2 (07:22→19:17)
[2019-06-06] MEDS: Citalopram 20 MG Tab PO SCH (07:23)
[2019-06-06] MEDS: Furosemide 20 MG Tab PO SCH (07:23)
[2019-06-06] MEDS: Fludrocortisone 0.1 MG Tab PO SCH ×2 (07:23→19:16)
[2019-06-06] MEDS: Potassium Chloride 10% 20 MEQ/15 ML Soln 15 ML UD Cup PO SCH ×3 (07:23→19:16)
[2019-06-06] MEDS: Cyanocobalamin (Vitamin B12) 1,000 MCG Tab PO SCH (07:24)
[2019-06-06] MEDS: Niacin 500 MG Tab PO SCH ×2 (07:24→17:11)
[2019-06-06] MEDS: Cholecalciferol (Vitamin D3) 25 MCG Tab PO SCH (07:24)
[2019-06-06] MEDS: IBUPROFEN 600 MG PO PRN (07:25)
[2019-06-06] MEDS: buPROPion 100 MG Tab PO SCH (19:16)
[2019-06-06] MEDS: Levothyroxine Sodium 137 MCG TABLET PO SCH (19:16)
[2019-06-06] MEDS: Simvastatin 10 MG Tab PO SCH (19:16)
[2019-06-07] MEDS: Albuterol/Ipratropium 3.0-0.5 MG/3 ML Neb Soln NEB SCH ×2 (07:25→19:12)
[2019-06-07] MEDS: Potassium Chloride 10% 20 MEQ/15 ML Soln 15 ML UD Cup PO SCH ×3 (07:25→19:13)
[2019-06-07] MEDS: Citalopram 20 MG Tab PO SCH (07:26)
[2019-06-07] MEDS: Cholecalciferol (Vitamin D3) 25 MCG Tab PO SCH (07:26)
[2019-06-07] MEDS: Niacin 500 MG Tab PO SCH ×2 (07:26→17:10)
[2019-06-07] MEDS: Fludrocortisone 0.1 MG Tab PO SCH ×2 (07:26→19:12)
[2019-06-07] MEDS: Furosemide 20 MG Tab PO SCH (07:26)
[2019-06-07] MEDS: Cyanocobalamin (Vitamin B12) 1,000 MCG Tab PO SCH (07:26)
[2019-06-07] MEDS: IBUPROFEN 600 MG PO PRN ×2 (07:27→19:14)
[2019-06-07] MEDS: Acetaminophen 325 MG Tab PO PRN (14:37)
[2019-06-07] MEDS: Simvastatin 10 MG Tab PO SCH (19:13)
[2019-06-07] MEDS: buPROPion 100 MG Tab PO SCH (19:13)
[2019-06-07] MEDS: Levothyroxine Sodium 137 MCG TABLET PO SCH (19:13)
[2019-06-08] MEDS: IBUPROFEN 600 MG PO PRN (07:12)
[2019-06-08] MEDS: Albuterol/Ipratropium 3.0-0.5 MG/3 ML Neb Soln NEB SCH ×2 (07:13→19:12)
[2019-06-08] MEDS: Citalopram 20 MG Tab PO SCH (07:13)
[2019-06-08] MEDS: Fludrocortisone 0.1 MG Tab PO SCH ×2 (07:13→19:12)
[2019-06-08] MEDS: Furosemide 20 MG Tab PO SCH (07:14)
[2019-06-08] MEDS: Niacin 500 MG Tab PO SCH ×2 (07:14→17:10)
[2019-06-08] MEDS: Cyanocobalamin (Vitamin B12) 1,000 MCG Tab PO SCH (07:14)
[2019-06-08] MEDS: Potassium Chloride 10% 20 MEQ/15 ML Soln 15 ML UD Cup PO SCH ×3 (07:14→19:13)
[2019-06-08] MEDS: Cholecalciferol (Vitamin D3) 25 MCG Tab PO SCH (07:15)
[2019-06-08] MEDS: Levothyroxine Sodium 137 MCG TABLET PO SCH (19:12)
[2019-06-08] MEDS: buPROPion 100 MG Tab PO SCH (19:13)
[2019-06-08] MEDS: Simvastatin 10 MG Tab PO SCH (19:13)
[2019-06-08] MEDS: Acetaminophen 325 MG Tab PO PRN (19:15)
[2019-06-09] MEDS: Citalopram 20 MG Tab PO SCH (08:01)
[2019-06-09] MEDS: Fludrocortisone 0.1 MG Tab PO SCH ×2 (08:01→19:32)
[2019-06-09] MEDS: Furosemide 20 MG Tab PO SCH (08:02)
[2019-06-09] MEDS: Albuterol/Ipratropium 3.0-0.5 MG/3 ML Neb Soln NEB SCH ×2 (08:03→19:31)
[2019-06-09] MEDS: Potassium Chloride 10% 20 MEQ/15 ML Soln 15 ML UD Cup PO SCH ×3 (08:03→19:32)
[2019-06-09] MEDS: Cyanocobalamin (Vitamin B12) 1,000 MCG Tab PO SCH (08:04)
[2019-06-09] MEDS: Niacin 500 MG Tab PO SCH ×2 (08:04→18:04)
[2019-06-09] MEDS: Cholecalciferol (Vitamin D3) 25 MCG Tab PO SCH (08:04)
[2019-06-09] MEDS: IBUPROFEN 600 MG PO PRN (08:04)
[2019-06-09] MEDS: buPROPion 100 MG Tab PO SCH (19:32)
[2019-06-09] MEDS: Simvastatin 10 MG Tab PO SCH (19:32)
[2019-06-09] MEDS: Levothyroxine Sodium 137 MCG TABLET PO SCH (19:32)
[2019-06-09] MEDS: Acetaminophen 325 MG Tab PO PRN (19:35)
[2019-06-10] MEDS: Citalopram 20 MG Tab PO SCH (07:56)
[2019-06-10] MEDS: Albuterol/Ipratropium 3.0-0.5 MG/3 ML Neb Soln NEB SCH ×2 (07:56→19:13)
[2019-06-10] MEDS: Furosemide 20 MG Tab PO SCH (07:56)
[2019-06-10] MEDS: Fludrocortisone 0.1 MG Tab PO SCH ×2 (07:56→19:15)
[2019-06-10] MEDS: Niacin 500 MG Tab PO SCH ×2 (07:57→17:56)
[2019-06-10] MEDS: Potassium Chloride 10% 20 MEQ/15 ML Soln 15 ML UD Cup PO SCH ×3 (07:57→19:16)
[2019-06-10] MEDS: Cholecalciferol (Vitamin D3) 25 MCG Tab PO SCH (07:57)
[2019-06-10] MEDS: Cyanocobalamin (Vitamin B12) 1,000 MCG Tab PO SCH (07:57)
[2019-06-10] MEDS: Acetaminophen 325 MG Tab PO PRN (19:14)
[2019-06-10] MEDS: Levothyroxine Sodium 137 MCG TABLET PO SCH (19:15)
[2019-06-10] MEDS: buPROPion 100 MG Tab PO SCH (19:15)
[2019-06-10] MEDS: Simvastatin 10 MG Tab PO SCH (19:15)
[2019-06-11] MEDS: Citalopram 20 MG Tab PO SCH (08:33)
[2019-06-11] MEDS: Fludrocortisone 0.1 MG Tab PO SCH ×2 (08:33→19:29)
[2019-06-11] MEDS: Furosemide 20 MG Tab PO SCH (08:33)
[2019-06-11] MEDS: Albuterol/Ipratropium 3.0-0.5 MG/3 ML Neb Soln NEB SCH ×2 (08:33→19:30)
[2019-06-11] MEDS: Niacin 500 MG Tab PO SCH ×2 (08:34→17:53)
[2019-06-11] MEDS: Cyanocobalamin (Vitamin B12) 1,000 MCG Tab PO SCH (08:34)
[2019-06-11] MEDS: Potassium Chloride 10% 20 MEQ/15 ML Soln 15 ML UD Cup PO SCH ×3 (08:34→19:29)
[2019-06-11] MEDS: Cholecalciferol (Vitamin D3) 25 MCG Tab PO SCH (08:35)
[2019-06-11] MEDS: Simvastatin 10 MG Tab PO SCH (19:29)
[2019-06-11] MEDS: Acetaminophen 325 MG Tab PO PRN (19:29)
[2019-06-11] MEDS: buPROPion 100 MG Tab PO SCH (19:29)
[2019-06-11] MEDS: Levothyroxine Sodium 137 MCG TABLET PO SCH (19:29)
[2019-06-12] MEDS: Cholecalciferol (Vitamin D3) 25 MCG Tab PO SCH (08:45)
[2019-06-12] MEDS: Citalopram 20 MG Tab PO SCH (08:45)
[2019-06-12] MEDS: Potassium Chloride 10% 20 MEQ/15 ML Soln 15 ML UD Cup PO SCH ×3 (08:45→19:22)
[2019-06-12] MEDS: Albuterol/Ipratropium 3.0-0.5 MG/3 ML Neb Soln NEB SCH ×2 (08:57→19:23)
[2019-06-12] MEDS: Furosemide 20 MG Tab PO SCH (08:57)
[2019-06-12] MEDS: Fludrocortisone 0.1 MG Tab PO SCH ×2 (08:57→19:22)
[2019-06-12] MEDS: Niacin 500 MG Tab PO SCH ×2 (08:58→18:08)
[2019-06-12] MEDS: Cyanocobalamin (Vitamin B12) 1,000 MCG Tab PO SCH (08:59)
[2019-06-12] MEDS: Acetaminophen 325 MG Tab PO PRN (09:58)
[2019-06-12] MEDS: buPROPion 100 MG Tab PO SCH (19:22)
[2019-06-12] MEDS: Levothyroxine Sodium 137 MCG TABLET PO SCH (19:22)
[2019-06-12] MEDS: Simvastatin 10 MG Tab PO SCH (19:22)
[2019-06-13] MEDS: Acetaminophen 325 MG Tab PO PRN ×2 (00:57→19:13)
[2019-06-13] MEDS: Citalopram 20 MG Tab PO SCH (08:22)
[2019-06-13] MEDS: Albuterol/Ipratropium 3.0-0.5 MG/3 ML Neb Soln NEB SCH ×2 (08:22→19:18)
[2019-06-13] MEDS: Fludrocortisone 0.1 MG Tab PO SCH ×2 (08:22→19:18)
[2019-06-13] MEDS: Furosemide 20 MG Tab PO SCH (08:23)
[2019-06-13] MEDS: Niacin 500 MG Tab PO SCH ×2 (08:23→17:03)
[2019-06-13] MEDS: Potassium Chloride 10% 20 MEQ/15 ML Soln 15 ML UD Cup PO SCH ×3 (08:24→19:18)
[2019-06-13] MEDS: Cholecalciferol (Vitamin D3) 25 MCG Tab PO SCH (08:25)
[2019-06-13] MEDS: Cyanocobalamin (Vitamin B12) 1,000 MCG Tab PO SCH (08:25)
[2019-06-13] MEDS: Simvastatin 10 MG Tab PO SCH (19:18)
[2019-06-13] MEDS: Levothyroxine Sodium 137 MCG TABLET PO SCH (19:18)
[2019-06-13] MEDS: buPROPion 100 MG Tab PO SCH (19:18)
[2019-06-14] MEDS: Citalopram 20 MG Tab PO SCH (08:29)
[2019-06-14] MEDS: Furosemide 20 MG Tab PO SCH (08:29)
[2019-06-14] MEDS: Fludrocortisone 0.1 MG Tab PO SCH ×2 (08:29→19:18)
[2019-06-14] MEDS: Cyanocobalamin (Vitamin B12) 1,000 MCG Tab PO SCH (08:31)
[2019-06-14] MEDS: Niacin 500 MG Tab PO SCH ×2 (08:31→17:37)
[2019-06-14] MEDS: Albuterol/Ipratropium 3.0-0.5 MG/3 ML Neb Soln NEB SCH ×2 (08:32→19:17)
[2019-06-14] MEDS: Potassium Chloride 10% 20 MEQ/15 ML Soln 15 ML UD Cup PO SCH ×3 (08:32→19:18)
[2019-06-14] MEDS: Cholecalciferol (Vitamin D3) 25 MCG Tab PO SCH (08:33)
[2019-06-14] MEDS: Levothyroxine Sodium 137 MCG TABLET PO SCH (19:18)
[2019-06-14] MEDS: Simvastatin 10 MG Tab PO SCH (19:20)
[2019-06-14] MEDS: buPROPion 100 MG Tab PO SCH (19:20)
[2019-06-15] MEDS: Citalopram 20 MG Tab PO SCH (07:18)
[2019-06-15] MEDS: Albuterol/Ipratropium 3.0-0.5 MG/3 ML Neb Soln NEB SCH ×2 (07:18→19:42)
[2019-06-15] MEDS: Potassium Chloride 10% 20 MEQ/15 ML Soln 15 ML UD Cup PO SCH ×3 (07:18→19:45)
[2019-06-15] MEDS: Fludrocortisone 0.1 MG Tab PO SCH ×2 (07:19→19:43)
[2019-06-15] MEDS: Furosemide 20 MG Tab PO SCH (07:19)
[2019-06-15] MEDS: Cyanocobalamin (Vitamin B12) 1,000 MCG Tab PO SCH (07:19)
[2019-06-15] MEDS: Niacin 500 MG Tab PO SCH ×2 (07:19→17:04)
[2019-06-15] MEDS: Cholecalciferol (Vitamin D3) 25 MCG Tab PO SCH (07:20)
[2019-06-15] MEDS: IBUPROFEN 600 MG PO PRN ×2 (07:43→17:53)
[2019-06-15] MEDS: Levothyroxine Sodium 137 MCG TABLET PO SCH (19:43)
[2019-06-15] MEDS: Simvastatin 10 MG Tab PO SCH (19:43)
[2019-06-15] MEDS: buPROPion 100 MG Tab PO SCH (19:43)
[2019-06-15] MEDS: VANCOMYCIN 125 MG PO SCH (19:45)
[2019-06-16] MEDS: Acetaminophen 325 MG Tab PO PRN (01:42)
[2019-06-16] MEDS: Citalopram 20 MG Tab PO SCH (07:47)
[2019-06-16] MEDS: VANCOMYCIN 125 MG PO SCH ×4 (07:48→19:08)
[2019-06-16] MEDS: Fludrocortisone 0.1 MG Tab PO SCH ×2 (07:48→19:07)
[2019-06-16] MEDS: Furosemide 20 MG Tab PO SCH (07:48)
[2019-06-16] MEDS: Albuterol/Ipratropium 3.0-0.5 MG/3 ML Neb Soln NEB SCH ×2 (07:48→19:10)
[2019-06-16] MEDS: Potassium Chloride 10% 20 MEQ/15 ML Soln 15 ML UD Cup PO SCH ×3 (07:49→19:09)
[2019-06-16] MEDS: Niacin 500 MG Tab PO SCH ×2 (07:49→17:47)
[2019-06-16] MEDS: Cholecalciferol (Vitamin D3) 25 MCG Tab PO SCH (07:51)
[2019-06-16] MEDS: Cyanocobalamin (Vitamin B12) 1,000 MCG Tab PO SCH (07:51)
[2019-06-16] MEDS: buPROPion 100 MG Tab PO SCH (19:07)
[2019-06-16] MEDS: Levothyroxine Sodium 137 MCG TABLET PO SCH (19:08)
[2019-06-16] MEDS: Simvastatin 10 MG Tab PO SCH (19:08)
[2019-06-17] MEDS: Fludrocortisone 0.1 MG Tab PO SCH ×2 (07:50→19:15)
[2019-06-17] MEDS: Citalopram 20 MG Tab PO SCH (07:50)
[2019-06-17] MEDS: Furosemide 20 MG Tab PO SCH (07:50)
[2019-06-17] MEDS: Albuterol/Ipratropium 3.0-0.5 MG/3 ML Neb Soln NEB SCH ×2 (07:51→19:14)
[2019-06-17] MEDS: VANCOMYCIN 125 MG PO SCH ×4 (07:52→19:16)
[2019-06-17] MEDS: Niacin 500 MG Tab PO SCH ×2 (07:52→17:55)
[2019-06-17] MEDS: Potassium Chloride 10% 20 MEQ/15 ML Soln 15 ML UD Cup PO SCH ×3 (07:53→19:16)
[2019-06-17] MEDS: Cyanocobalamin (Vitamin B12) 1,000 MCG Tab PO SCH (07:54)
[2019-06-17] MEDS: Cholecalciferol (Vitamin D3) 25 MCG Tab PO SCH (07:54)
[2019-06-17] MEDS: IBUPROFEN 600 MG PO PRN ×2 (08:36→19:17)
[2019-06-17] MEDS: Simvastatin 10 MG Tab PO SCH (19:14)
[2019-06-17] MEDS: Levothyroxine Sodium 137 MCG TABLET PO SCH (19:14)
[2019-06-17] MEDS: buPROPion 100 MG Tab PO SCH (19:15)
[2019-06-18] MEDS: Potassium Chloride 10% 20 MEQ/15 ML Soln 15 ML UD Cup PO SCH ×3 (08:03→19:19)
[2019-06-18] MEDS: Fludrocortisone 0.1 MG Tab PO SCH ×2 (08:04→19:18)
[2019-06-18] MEDS: Furosemide 20 MG Tab PO SCH (08:04)
[2019-06-18] MEDS: Citalopram 20 MG Tab PO SCH (08:05)
[2019-06-18] MEDS: Albuterol/Ipratropium 3.0-0.5 MG/3 ML Neb Soln NEB SCH ×2 (08:05→19:16)
[2019-06-18] MEDS: Cyanocobalamin (Vitamin B12) 1,000 MCG Tab PO SCH (08:06)
[2019-06-18] MEDS: VANCOMYCIN 125 MG PO SCH ×4 (08:06→19:18)
[2019-06-18] MEDS: Niacin 500 MG Tab PO SCH ×2 (08:06→17:05)
[2019-06-18] MEDS: Cholecalciferol (Vitamin D3) 25 MCG Tab PO SCH (08:07)
[2019-06-18] MEDS: Acetaminophen 325 MG Tab PO PRN ×2 (08:10→19:23)
[2019-06-18] MEDS: IBUPROFEN 600 MG PO PRN (11:24)
[2019-06-18] MEDS: Simvastatin 10 MG Tab PO SCH (19:17)
[2019-06-18] MEDS: Levothyroxine Sodium 137 MCG TABLET PO SCH (19:18)
[2019-06-18] MEDS: buPROPion 100 MG Tab PO SCH (19:19)
[2019-06-19] MEDS: IBUPROFEN 600 MG PO PRN (07:22)
[2019-06-19] MEDS: Potassium Chloride 10% 20 MEQ/15 ML Soln 15 ML UD Cup PO SCH ×3 (07:22→19:16)
[2019-06-19] MEDS: Albuterol/Ipratropium 3.0-0.5 MG/3 ML Neb Soln NEB SCH ×2 (07:23→19:12)
[2019-06-19] MEDS: Citalopram 20 MG Tab PO SCH (07:23)
[2019-06-19] MEDS: Fludrocortisone 0.1 MG Tab PO SCH ×2 (07:24→19:15)
[2019-06-19] MEDS: VANCOMYCIN 125 MG PO SCH ×4 (07:24→19:16)
[2019-06-19] MEDS: Furosemide 20 MG Tab PO SCH (07:24)
[2019-06-19] MEDS: Cyanocobalamin (Vitamin B12) 1,000 MCG Tab PO SCH (07:25)
[2019-06-19] MEDS: Niacin 500 MG Tab PO SCH ×2 (07:25→17:24)
[2019-06-19] MEDS: Cholecalciferol (Vitamin D3) 25 MCG Tab PO SCH (07:25)
[2019-06-19] MEDS: Acetaminophen 325 MG Tab PO PRN ×2 (11:11→19:14)
[2019-06-19] MEDS: Levothyroxine Sodium 137 MCG TABLET PO SCH (19:15)
[2019-06-19] MEDS: Simvastatin 10 MG Tab PO SCH (19:15)
[2019-06-19] MEDS: buPROPion 100 MG Tab PO SCH (19:15)
[2019-06-20] MEDS: Acetaminophen 325 MG Tab PO PRN ×3 (01:46→19:25)
[2019-06-20] MEDS: IBUPROFEN 600 MG PO PRN ×2 (07:16→17:08)
[2019-06-20] MEDS: Albuterol/Ipratropium 3.0-0.5 MG/3 ML Neb Soln NEB SCH ×2 (07:17→19:20)
[2019-06-20] MEDS: Citalopram 20 MG Tab PO SCH (07:17)
[2019-06-20] MEDS: Fludrocortisone 0.1 MG Tab PO SCH ×2 (07:17→19:21)
[2019-06-20] MEDS: VANCOMYCIN 125 MG PO SCH ×4 (07:18→19:22)
[2019-06-20] MEDS: Furosemide 20 MG Tab PO SCH (07:18)
[2019-06-20] MEDS: Potassium Chloride 10% 20 MEQ/15 ML Soln 15 ML UD Cup PO SCH ×3 (07:20→19:24)
[2019-06-20] MEDS: Niacin 500 MG Tab PO SCH ×2 (07:20→17:08)
[2019-06-20] MEDS: Cholecalciferol (Vitamin D3) 25 MCG Tab PO SCH (07:21)
[2019-06-20] MEDS: Cyanocobalamin (Vitamin B12) 1,000 MCG Tab PO SCH (07:21)
[2019-06-20] MEDS: Levothyroxine Sodium 137 MCG TABLET PO SCH (19:21)
[2019-06-20] MEDS: buPROPion 100 MG Tab PO SCH (19:21)
[2019-06-20] MEDS: Simvastatin 10 MG Tab PO SCH (19:22)
[2019-06-21] MEDS: Albuterol/Ipratropium 3.0-0.5 MG/3 ML Neb Soln NEB SCH ×2 (07:20→19:18)
[2019-06-21] MEDS: Furosemide 20 MG Tab PO SCH (07:21)
[2019-06-21] MEDS: Citalopram 20 MG Tab PO SCH (07:21)
[2019-06-21] MEDS: Fludrocortisone 0.1 MG Tab PO SCH ×2 (07:21→19:18)
[2019-06-21] MEDS: Potassium Chloride 10% 20 MEQ/15 ML Soln 15 ML UD Cup PO SCH ×3 (07:21→19:19)
[2019-06-21] MEDS: VANCOMYCIN 125 MG PO SCH ×4 (07:22→19:18)
[2019-06-21] MEDS: Cyanocobalamin (Vitamin B12) 1,000 MCG Tab PO SCH (07:22)
[2019-06-21] MEDS: Niacin 500 MG Tab PO SCH ×2 (07:22→17:19)
[2019-06-21] MEDS: Cholecalciferol (Vitamin D3) 25 MCG Tab PO SCH (07:23)
[2019-06-21] MEDS: IBUPROFEN 600 MG PO PRN ×2 (07:23→17:20)
[2019-06-21] MEDS: Acetaminophen 325 MG Tab PO PRN (11:16)
[2019-06-21] MEDS: Simvastatin 10 MG Tab PO SCH (19:18)
[2019-06-21] MEDS: Levothyroxine Sodium 137 MCG TABLET PO SCH (19:18)
[2019-06-21] MEDS: buPROPion 100 MG Tab PO SCH (19:18)
[2019-06-22] MEDS: Citalopram 20 MG Tab PO SCH (07:32)
[2019-06-22] MEDS: Fludrocortisone 0.1 MG Tab PO SCH ×2 (07:32→19:17)
[2019-06-22] MEDS: VANCOMYCIN 125 MG PO SCH ×4 (07:33→19:18)
[2019-06-22] MEDS: Albuterol/Ipratropium 3.0-0.5 MG/3 ML Neb Soln NEB SCH ×2 (07:33→19:17)
[2019-06-22] MEDS: Furosemide 20 MG Tab PO SCH (07:33)
[2019-06-22] MEDS: Niacin 500 MG Tab PO SCH ×2 (07:34→17:19)
[2019-06-22] MEDS: Potassium Chloride 10% 20 MEQ/15 ML Soln 15 ML UD Cup PO SCH ×3 (07:35→19:19)
[2019-06-22] MEDS: Cyanocobalamin (Vitamin B12) 1,000 MCG Tab PO SCH (07:35)
[2019-06-22] MEDS: Cholecalciferol (Vitamin D3) 25 MCG Tab PO SCH (07:35)
[2019-06-22] MEDS: Levothyroxine Sodium 137 MCG TABLET PO SCH (19:17)
[2019-06-22] MEDS: buPROPion 100 MG Tab PO SCH (19:18)
[2019-06-22] MEDS: Simvastatin 10 MG Tab PO SCH (19:18)
[2019-06-22] MEDS: Acetaminophen 325 MG Tab PO PRN (19:20)
[2019-06-23] MEDS: Citalopram 20 MG Tab PO SCH (08:09)
[2019-06-23] MEDS: Furosemide 20 MG Tab PO SCH (08:09)
[2019-06-23] MEDS: Fludrocortisone 0.1 MG Tab PO SCH ×2 (08:09→19:09)
[2019-06-23] MEDS: Albuterol/Ipratropium 3.0-0.5 MG/3 ML Neb Soln NEB SCH ×2 (08:09→19:08)
[2019-06-23] MEDS: VANCOMYCIN 125 MG PO SCH ×4 (08:11→19:10)
[2019-06-23] MEDS: Cholecalciferol (Vitamin D3) 25 MCG Tab PO SCH (08:12)
[2019-06-23] MEDS: Cyanocobalamin (Vitamin B12) 1,000 MCG Tab PO SCH (08:12)
[2019-06-23] MEDS: Niacin 500 MG Tab PO SCH ×2 (08:12→17:47)
[2019-06-23] MEDS: Potassium Chloride 10% 20 MEQ/15 ML Soln 15 ML UD Cup PO SCH ×3 (08:13→19:11)
[2019-06-23] MEDS: buPROPion 100 MG Tab PO SCH (19:09)
[2019-06-23] MEDS: Levothyroxine Sodium 137 MCG TABLET PO SCH (19:09)
[2019-06-23] MEDS: Simvastatin 10 MG Tab PO SCH (19:09)
[2019-06-23] MEDS: Acetaminophen 325 MG Tab PO PRN (19:12)
[2019-06-24] MEDS: Fludrocortisone 0.1 MG Tab PO SCH ×2 (07:44→19:11)
[2019-06-24] MEDS: Albuterol/Ipratropium 3.0-0.5 MG/3 ML Neb Soln NEB SCH ×2 (07:44→19:10)
[2019-06-24] MEDS: Furosemide 20 MG Tab PO SCH (07:44)
[2019-06-24] MEDS: Citalopram 20 MG Tab PO SCH (07:44)
[2019-06-24] MEDS: Niacin 500 MG Tab PO SCH ×2 (07:45→17:21)
[2019-06-24] MEDS: VANCOMYCIN 125 MG PO SCH ×4 (07:45→19:11)
[2019-06-24] MEDS: Cholecalciferol (Vitamin D3) 25 MCG Tab PO SCH (07:46)
[2019-06-24] MEDS: Cyanocobalamin (Vitamin B12) 1,000 MCG Tab PO SCH (07:46)
[2019-06-24] MEDS: Acetaminophen 325 MG Tab PO PRN ×2 (07:47→17:22)
[2019-06-24] MEDS: Potassium Chloride 10% 20 MEQ/15 ML Soln 15 ML UD Cup PO SCH ×3 (07:47→19:12)
[2019-06-24] MEDS: Simvastatin 10 MG Tab PO SCH (19:10)
[2019-06-24] MEDS: buPROPion 100 MG Tab PO SCH (19:11)
[2019-06-24] MEDS: Levothyroxine Sodium 137 MCG TABLET PO SCH (19:11)
[2019-06-25] MEDS: Fludrocortisone 0.1 MG Tab PO SCH ×2 (08:10→19:25)
[2019-06-25] MEDS: Citalopram 20 MG Tab PO SCH (08:10)
[2019-06-25] MEDS: VANCOMYCIN 125 MG PO SCH ×4 (08:10→19:28)
[2019-06-25] MEDS: Furosemide 20 MG Tab PO SCH (08:10)
[2019-06-25] MEDS: Niacin 500 MG Tab PO SCH ×2 (08:11→17:47)
[2019-06-25] MEDS: Cholecalciferol (Vitamin D3) 25 MCG Tab PO SCH (08:11)
[2019-06-25] MEDS: Cyanocobalamin (Vitamin B12) 1,000 MCG Tab PO SCH (08:11)
[2019-06-25] MEDS: Potassium Chloride 10% 20 MEQ/15 ML Soln 15 ML UD Cup PO SCH ×3 (08:12→19:27)
[2019-06-25] MEDS: Albuterol/Ipratropium 3.0-0.5 MG/3 ML Neb Soln NEB SCH ×2 (08:12→19:24)
[2019-06-25] MEDS: Acetaminophen 325 MG Tab PO PRN (08:31)
--- NOTE | 2019-06-25 08:51 | PCM.PN ---
- General Info Date of Service: 06/25/19 Admission Dx/Problem (Free Text): Muscular dystrophy Subjective Update: Return of her previous C. difficile infection with probable chronic carrier state. Additional new perioral dyskinesia. Functional Status: Reports: Pain Controlled, Tolerating Diet, Ambulating (With walker), Urinating, New Symptoms (Returned diarrhea and perioral dyskinesias above), Incentive Spirometry Pain Score: 7 (Topical perirectal soreness secondary to diarrhea) - Review of Systems General: Reports: Fatigue (Stable chronic), Other (Diarrhea as above). Denies: Fever, Weakness, Malaise, Chills, Night Sweats, Appetite (Eating somewhat less at noon meal) HEENT: Reports: Other (Perioral dyskinesia). Denies: Contact Lenses, Dysphasia , Ear Pain, Eye Pain, Glasses, Headaches, Post Nasal Drip, Sinus Congestion, Sore Throat, Rhinitis, Visual Changes Pulmonary: Reports: No Symptoms. Denies: Shortness of Breath, Pleuritic Chest Pain, Cough, Sputum, Hemoptysis, Wheezing Cardiovascular: Reports: Edema (Stable dependent edema). Denies: Chest Pain, Palpitations, Dyspnea on Exertion, Orthopnea, PND, Other Gastrointestinal: Reports: Decreased Appetite (As above), Diarrhea (As above with 3-5 loose bowel movements per day). Denies: Abdominal Pain, Constipation, Difficulty Swallowing, Flatus, Hematochezia, Melena Genitourinary: Reports: No Symptoms. Denies: Dysuria, Frequency, Burning, Pain , Urgency, Hematuria, Retention, Flank Pain Musculoskeletal: Reports: No Symptoms. Denies: Neck Pain, Shoulder Pain, Arm Pain, Back Pain, Leg Pain Skin: Reports: Rash (Mild perirectal erythema and tenderness). Denies: Diaphoresis, Bruising, Pruritis Neurological: Reports: Difficulty Walking (Walker use), Weakness (Stable chronic ), Other (Perioral dyskinesia as above). Denies: Confusion, Dizziness, Headache , Numbness, Paresthesia, Pre-Existing Deficit, Seizure, Syncope, Tingling, Tremors, Trouble Speaking, Change in Speech, Gait Disturbance Psychiatric: Reports: No Symptoms. Denies: Confusion, Depression, Mood Lability , Agitation, Cravings, Hallucinations - Patient Data Vitals - Most Recent: Last Vital Signs Temp 36.1 C 06/22/19 08:00 Pulse 65 06/22/19 08:00 Resp 18 06/22/19 08:00 BP 125/65 06/22/19 08:00 Pulse Ox 89 L 06/22/19 08:00 Weight - Most Recent: 102.058 kg (Increased 0.4 kg during the last 2 months with previous 0.5 kg weight loss) I&O - Last 24 Hours: Intake & Output 06/24/19 06/25/19 06/25/19 22:59 06:59 14:59 Intake Total 880 Balance 880 Imaging Impressions - Last 24 Hours: None Lab Results Last 24 Hours: None Sandor Results Last 24 Hours: None although recent positive stool specimen for return C. difficile toxin Med Orders - Current: Current Medications Acetaminophen (Tylenol) 650 mg PO Q4H PRN PRN Reason: Pain Last Admin: 06/25/19 08:31 Dose: 650 mg Albuterol/Ipratropium (Duoneb 3.0-0.5 Mg/3 Ml) 3 ml NEB BIDRT [facility] Last Admin: 06/25/19 08:12 Dose: 3 ml Albuterol/Ipratropium (Duoneb 3.0-0.5 Mg/3 Ml) 3 ml NEB Q4HRRT PRN PRN Reason: Dyspnea Last Admin: 05/26/19 08:24 Dose: 3 ml Bupropion HCl (Wellbutrin) 150 mg PO BEDTIME [facility] Last Admin: 06/24/19 19:11 Dose: 150 mg Cholecalciferol (Vitamin D3) 25 mcg PO DAILY [facility] Last Admin: 06/25/19 08:11 Dose: 25 mcg Citalopram Hydrobromide (Celexa) 20 mg PO QAM [facility] Last Admin: 06/25/19 08:10 Dose: 20 mg Cyanocobalamin (Vitamin B12) 1,000 mcg PO QAM [facility] Last Admin: 06/25/19 08:11 Dose: 1,000 mcg Fludrocortisone Acetate (Florinef) 0.1 mg PO BEDTIME [facility] Last Admin: 06/24/19 19:11 Dose: 0.1 mg Fludrocortisone Acetate (Florinef) 0.2 mg PO QAM [facility] Last Admin: 06/25/19 08:10 Dose: 0.2 mg Furosemide (Lasix) 20 mg PO DAILY [facility] Last Admin: 06/25/19 08:10 Dose: 20 mg Ibuprofen (Motrin) 600 mg PO Q6H PRN PRN Reason: Breakthrough Pain Last Admin: 06/21/19 17:20 Dose: 600 mg Methyl Salicylate (Icy Hot Cream) 0 gm TOP QID PRN PRN Reason: Pain (mild 1-3) Last Admin: 05/29/19 02:15 Dose: 1 applic Niacin (Niacin) 500 mg PO BID [facility] Last Admin: 06/25/19 08:11 Dose: 500 mg Levothyroxine Sodium (137 Mcg Tablet) 137 mcg PO BEDTIME [facility] Last Admin: 06/24/19 19:11 Dose: 137 mcg Vancomycin 125mg (Capsules) 1 each PO QID [facility] Stop: 06/29/19 16:01 Last Admin: 06/25/19 08:10 Dose: 1 each Potassium Chloride (Potassium Chloride Solution) 40 meq PO TID@08,14,20 [facility] Last Admin: 06/25/19 08:12 Dose: 40 meq Simvastatin (Zocor) 10 mg PO BEDTIME [facility] Last Admin: 06/24/19 19:10 Dose: 10 mg Discontinued Medications Cholecalciferol (Vitamin D3) 1,000 mcg PO QAM [facility] Last Admin: 05/26/19 08:49 Dose: Not Given - Exam Quality Assessment: Supplemental Oxygen, DVT Prophylaxis. No: Central Line/PICC , Urine Catheter, Skin Breakdown, Restraints General: Alert, Oriented, Cooperative, No Acute Distress HEENT: Pupils Equal, Pupils Reactive, EOMI, Mucous Membr. Moist/Gerald Neck: Supple, Trachea Midline, No JVD, No Thyromegaly. No: Lymphadenopathy Lungs: Clear to Auscultation, Normal Respiratory Effort. No: Rub Cardiovascular: Regular Rate, Regular Rhythm, No Murmurs. No: Gallops, Rubs GI/Abdominal Exam: Normal Bowel Sounds, Soft, Non-Tender, No Organomegaly, No Distention, No Abnormal Bruit, No Mass. No: Guarding (Female) Exam: Deferred, Other (Mild perioral and formation and tenderness per nurse's history with no evidence of decubitus ulcer, etc.) Back Exam: Normal Inspection, Full Range of Motion. No: CVA Tenderness (L), CVA Tenderness (R), Muscle Spasm Extremities: Normal Range of Motion, Non-Tender, Normal Capillary Refill, Pedal Edema (Stable mild lymphedema of the lower extremities). No: No Pedal Edema, Lurdes's Sign Peripheral Pulses: 2+: Radial (L), Radial (R) Skin: Other (Perirectal inflammation as above) Wound/Incisions: No Drainage, Erythema (As above) Neurological: Normal Speech, Other (Stable generalized weakness. New mild perioral dyskinesia). No: Normal Gait (Walker use required) Psy/Mental Status: Alert, Normal Affect, Normal Mood. No: Agitated, Hallucinations, Withdrawal Symptoms - Problem List & Annotations (1) Steinert myotonic dystrophy syndrome SNOMED Code(s): 103005861 Code(s): G71.11 - MYOTONIC MUSCULAR DYSTROPHY Status: Chronic Priority: Medium Current Visit: Yes Annotation/Comment:: Stable by history and today' s exam. Physical therapy in effect. Continue current medical therapy. (2) Myotonic dystrophy Status: Acute Priority: High Current Visit: Yes Annotation/Comment:: Newly diagnosed perioral myotonic dystrophy, which actually increased after discontinuation of previous chronic Reglan therapy. Note that patient does have complete dentures uppers and lowers, which does tend to aggravate her problem. No significant clinical relevance at this time with no change in medical therapy for now. (3) C. difficile colitis SNOMED Code(s): 397390833 Code(s): A04.72 - ENTEROCOLITIS D/T CLOSTRIDIUM DIFFICILE, NOT SPCF RECUR Status: Chronic Priority: Medium Current Visit: Yes Onset Date: Annotation/Comment:: Recurrence of her C. difficile symptoms and diarrhea with no recent antibiotic therapy. Patient has been treated previously with multiple courses of Flagyl and an additional course of vancomycin with the patient likely a chronic carrier. Oral vancomycin therapy currently in progress , although significant diarrhea persists, including about 5 loose bowel movements per day. Disinfection, isolation, etc. precautions have been initiated. [facility] physician did consult with our pharmacist prior to initiation of vancomycin, however we may need to reconsider current treatment strategy. Central laboratories previously refused repeat stool C. difficile analysis since the patient no longer had diarrhea and that this evaluation may remain positive for several months. This issue was previously brought up in medical staff for further review and discussion with no further follow-up at this time. In the meantime strict disinfection of patient's room, clothing, etc. has been conducted. Continue to observe closely. (4) Gastroesophageal reflux disease SNOMED Code(s): 184718402 Code(s): K21.9 - GASTRO-ESOPHAGEAL REFLUX DISEASE WITHOUT ESOPHAGITIS Status: Acute Priority: Medium Current Visit: Yes Annotation/Comment:: Stable by history despite discontinuation of Reglan therapy recently as above. No other GI medications required at this time with previous discontinuation of Prilosec, etc. No current abdominal complaints other than her diarrhea from her C. difficile colitis. (5) CHF, Congestive heart failure SNOMED Code(s): 75420822 Code(s): I50.9 - HEART FAILURE, UNSPECIFIED Status: Chronic Priority: Medium Current Visit: Yes Annotation/Comment:: Despite newly diagnosed lateral wall cardiac ischemia by EKG in April 2019 difficult to assess secondary to her bifascicular bundle-branch block. No chest pain or anginal type symptoms. Stable CHF by clinical exam and history with no evidence of significant CHF by blood work and chest x-rays in April 2019 with yearly blood work conducted at that time. Repeat blood work to be conducted at next follow- up rounds in 2 months. Stable dependent edema since 12/10/17. Note 0.4 kg weight gain during the last 2 months despite patient's only eating limited amounts at noon per nurse's history. She has also been better about not eating extra snacks , etc. during the day. Her weight continues to be variable secondary to previous dietary noncompliance, however no direct evidence of significant weight gain or CHF as above. Note previous discontinuation of high protein Glucerna supplements as snacks. Dietary consultation in effect. Activity level is overall low. Continue to observe closely. No recent anginal complaints or current clinical evidence of CHF as above. Note previous history of PVCs, complete right bundle branch block/bifascicular bundle-branch block, first- degree AV block, severe dyslipidemia hypokalemia, hypophosphatemia, and hyponatremia. Continue to observe for now with no further change in medical therapy. (6) COPD (chronic obstructive pulmonary disease) SNOMED Code(s): 28215198 Code(s): J44.9 - CHRONIC OBSTRUCTIVE PULMONARY DISEASE, UNSPECIFIED Status : Chronic Priority: Medium Current Visit: Yes Qualifiers: COPD type: emphysema Emphysema type: panlobular Qualified Code(s): J43.1 - Panlobular emphysema Annotation/Comment:: O2 dependent COPD stable by history with no bronchitic symptoms at this time. Continue current medical therapy. Patient does have a previous history of distant postoperative respiratory distress, although no complications after previous dental surgery. (7) Hyperglycemia SNOMED Code(s): 19976671 Code(s): R73.9 - HYPERGLYCEMIA, UNSPECIFIED Status: Chronic Priority: Medium Current Visit: Yes Onset Date: 06/29/15 Annotation/Comment:: Dietary consultation is in effect as above. Blood work scheduled in 2 months as above normal Glycosylated hemoglobin in April 2019. (8) Hyperlipidemia SNOMED Code(s): 03160553 Code(s): E78.5 - HYPERLIPIDEMIA, UNSPECIFIED Status: Chronic Priority: Medium Current Visit: Yes Annotation/Comment:: Lipid Panel in April 2019 showed mild persistent hypertriglyceridemia. Previous history of severe dyslipidemia with aggressive medical therapy at this time. Dietary compliance once again strongly encouraged. No change in medical therapy for now with previous history of CPK elevation. (9) Hypothyroidism SNOMED Code(s): 08254052 Code(s): E03.9 - HYPOTHYROIDISM, UNSPECIFIED Status: Chronic Priority: Medium Current Visit: Yes Annotation/Comment:: TSH normal in April 2019. No other thyroid type symptoms. (10) Mixed anxiety and depressive disorder SNOMED Code(s): 942931286 Code(s): F41.8 - OTHER SPECIFIED ANXIETY DISORDERS Status: Chronic Priority: Medium Current Visit: Yes Annotation/Comment:: Stable by history. Patient is still relatively active with physical therapy, however has decreased her social activities recently per nursing history. Continue to observe closely by nursing staff with no significant depression at this time with patient often alone in her room. (11) Orthostatic hypotension SNOMED Code(s): 10284763 Code(s): I95.1 - ORTHOSTATIC HYPOTENSION Status: Chronic Priority: Medium Current Visit: Yes Annotation/Comment:: No recent falls or injuries. Previous problems with recurrent falls including right ankle fracture on . The patient and nursing staff are continuing strict compliance with previously ordered fall precautions, walker use, etc. Continue activity restrictions as per physical therapy, and occupational therapy. Continue current Florinef with otherwise relatively stable decreased systolic blood pressures. No change in therapy. - Problem List Review Problem List Initiated/Reviewed/Updated: Yes - Assessment Assessment:: As above - Plan Plan:: As above. Extensive precautions were given to the patient and nursing staff, who are in agreement with the treatment plan. Patient is recertified for an additional 2 months of swing bed care with chronic placement secondary to multiple illnesses as above.
[2019-06-25] MEDS: buPROPion 100 MG Tab PO SCH (19:25)
[2019-06-25] MEDS: Levothyroxine Sodium 137 MCG TABLET PO SCH (19:25)
[2019-06-25] MEDS: Simvastatin 10 MG Tab PO SCH (19:25)
[2019-06-26] MEDS: Acetaminophen 325 MG Tab PO PRN (04:39)
[2019-06-26] MEDS: Fludrocortisone 0.1 MG Tab PO SCH ×2 (08:01→19:07)
[2019-06-26] MEDS: Citalopram 20 MG Tab PO SCH (08:01)
[2019-06-26] MEDS: Albuterol/Ipratropium 3.0-0.5 MG/3 ML Neb Soln NEB SCH ×2 (08:01→19:05)
[2019-06-26] MEDS: Furosemide 20 MG Tab PO SCH (08:01)
[2019-06-26] MEDS: Niacin 500 MG Tab PO SCH ×2 (08:02→17:47)
[2019-06-26] MEDS: VANCOMYCIN 125 MG PO SCH ×4 (08:02→19:06)
[2019-06-26] MEDS: IBUPROFEN 600 MG PO PRN (08:03)
[2019-06-26] MEDS: Cholecalciferol (Vitamin D3) 25 MCG Tab PO SCH (08:03)
[2019-06-26] MEDS: Cyanocobalamin (Vitamin B12) 1,000 MCG Tab PO SCH (08:03)
[2019-06-26] MEDS: Potassium Chloride 10% 20 MEQ/15 ML Soln 15 ML UD Cup PO SCH ×3 (08:05→19:07)
[2019-06-26] MEDS: Simvastatin 10 MG Tab PO SCH (19:06)
[2019-06-26] MEDS: buPROPion 100 MG Tab PO SCH (19:06)
[2019-06-26] MEDS: Levothyroxine Sodium 137 MCG TABLET PO SCH (19:07)
[2019-06-27] MEDS: Fludrocortisone 0.1 MG Tab PO SCH ×2 (07:52→19:09)
[2019-06-27] MEDS: Citalopram 20 MG Tab PO SCH (07:52)
[2019-06-27] MEDS: Furosemide 20 MG Tab PO SCH (07:52)
[2019-06-27] MEDS: Niacin 500 MG Tab PO SCH ×2 (07:53→17:57)
[2019-06-27] MEDS: Albuterol/Ipratropium 3.0-0.5 MG/3 ML Neb Soln NEB SCH ×2 (07:53→19:08)
[2019-06-27] MEDS: VANCOMYCIN 125 MG PO SCH ×4 (07:53→19:10)
[2019-06-27] MEDS: IBUPROFEN 600 MG PO PRN (07:54)
[2019-06-27] MEDS: Potassium Chloride 10% 20 MEQ/15 ML Soln 15 ML UD Cup PO SCH ×3 (07:54→19:10)
[2019-06-27] MEDS: Cholecalciferol (Vitamin D3) 25 MCG Tab PO SCH (07:54)
[2019-06-27] MEDS: Cyanocobalamin (Vitamin B12) 1,000 MCG Tab PO SCH (07:54)
[2019-06-27] MEDS: Acetaminophen 325 MG Tab PO PRN ×2 (17:58→21:56)
[2019-06-27] MEDS: Levothyroxine Sodium 137 MCG TABLET PO SCH (19:09)
[2019-06-27] MEDS: Simvastatin 10 MG Tab PO SCH (19:09)
[2019-06-27] MEDS: buPROPion 100 MG Tab PO SCH (19:09)
[2019-06-28] MEDS: Potassium Chloride 10% 20 MEQ/15 ML Soln 15 ML UD Cup PO SCH ×3 (07:52→19:09)
[2019-06-28] MEDS: Citalopram 20 MG Tab PO SCH (07:52)
[2019-06-28] MEDS: Niacin 500 MG Tab PO SCH ×2 (07:52→17:54)
[2019-06-28] MEDS: Albuterol/Ipratropium 3.0-0.5 MG/3 ML Neb Soln NEB SCH ×2 (07:52→19:06)
[2019-06-28] MEDS: VANCOMYCIN 125 MG PO SCH ×4 (07:52→19:08)
[2019-06-28] MEDS: Cholecalciferol (Vitamin D3) 25 MCG Tab PO SCH (07:52)
[2019-06-28] MEDS: Fludrocortisone 0.1 MG Tab PO SCH ×2 (07:52→19:07)
[2019-06-28] MEDS: Furosemide 20 MG Tab PO SCH (07:52)
[2019-06-28] MEDS: Cyanocobalamin (Vitamin B12) 1,000 MCG Tab PO SCH (07:52)
[2019-06-28] MEDS: Levothyroxine Sodium 137 MCG TABLET PO SCH (19:07)
[2019-06-28] MEDS: buPROPion 100 MG Tab PO SCH (19:11)
[2019-06-28] MEDS: Simvastatin 10 MG Tab PO SCH (19:11)
[2019-06-28] MEDS: Acetaminophen 325 MG Tab PO PRN (19:15)
[2019-06-29] MEDS: Albuterol/Ipratropium 3.0-0.5 MG/3 ML Neb Soln NEB SCH ×2 (07:48→19:16)
[2019-06-29] MEDS: Furosemide 20 MG Tab PO SCH (07:48)
[2019-06-29] MEDS: Fludrocortisone 0.1 MG Tab PO SCH ×2 (07:48→19:15)
[2019-06-29] MEDS: Citalopram 20 MG Tab PO SCH (07:49)
[2019-06-29] MEDS: VANCOMYCIN 125 MG PO SCH ×3 (07:49→17:37)
[2019-06-29] MEDS: Niacin 500 MG Tab PO SCH ×2 (07:49→17:37)
[2019-06-29] MEDS: Cyanocobalamin (Vitamin B12) 1,000 MCG Tab PO SCH (07:50)
[2019-06-29] MEDS: Cholecalciferol (Vitamin D3) 25 MCG Tab PO SCH (07:50)
[2019-06-29] MEDS: Acetaminophen 325 MG Tab PO PRN ×2 (07:50→19:15)
[2019-06-29] MEDS: Potassium Chloride 10% 20 MEQ/15 ML Soln 15 ML UD Cup PO SCH ×3 (07:51→19:16)
[2019-06-29] MEDS: FIDAXOMICIN 200 MG PO SCH (17:37)
[2019-06-29] MEDS: IBUPROFEN 600 MG PO PRN (17:37)
[2019-06-29] MEDS: buPROPion 100 MG Tab PO SCH (19:16)
[2019-06-29] MEDS: Levothyroxine Sodium 137 MCG TABLET PO SCH (19:16)
[2019-06-29] MEDS: Simvastatin 10 MG Tab PO SCH (19:16)
[2019-06-30] MEDS: Furosemide 20 MG Tab PO SCH (08:08)
[2019-06-30] MEDS: Fludrocortisone 0.1 MG Tab PO SCH ×2 (08:08→19:12)
[2019-06-30] MEDS: Albuterol/Ipratropium 3.0-0.5 MG/3 ML Neb Soln NEB SCH ×2 (08:09→19:11)
[2019-06-30] MEDS: Citalopram 20 MG Tab PO SCH (08:09)
[2019-06-30] MEDS: FIDAXOMICIN 200 MG PO SCH ×2 (08:09→17:25)
[2019-06-30] MEDS: Niacin 500 MG Tab PO SCH ×2 (08:10→17:25)
[2019-06-30] MEDS: Cyanocobalamin (Vitamin B12) 1,000 MCG Tab PO SCH (08:10)
[2019-06-30] MEDS: Potassium Chloride 10% 20 MEQ/15 ML Soln 15 ML UD Cup PO SCH ×3 (08:11→19:13)
[2019-06-30] MEDS: Cholecalciferol (Vitamin D3) 25 MCG Tab PO SCH (08:11)
[2019-06-30] MEDS: Simvastatin 10 MG Tab PO SCH (19:12)
[2019-06-30] MEDS: Levothyroxine Sodium 137 MCG TABLET PO SCH (19:12)
[2019-06-30] MEDS: buPROPion 100 MG Tab PO SCH (19:12)
[2019-06-30] MEDS: Acetaminophen 325 MG Tab PO PRN (19:13)
[2019-07-01] MEDS: Citalopram 20 MG Tab PO SCH (08:23)
[2019-07-01] MEDS: Furosemide 20 MG Tab PO SCH (08:24)
[2019-07-01] MEDS: Fludrocortisone 0.1 MG Tab PO SCH ×2 (08:24→19:18)
[2019-07-01] MEDS: Albuterol/Ipratropium 3.0-0.5 MG/3 ML Neb Soln NEB SCH ×2 (08:24→19:18)
[2019-07-01] MEDS: Niacin 500 MG Tab PO SCH ×2 (08:25→17:32)
[2019-07-01] MEDS: FIDAXOMICIN 200 MG PO SCH ×2 (08:25→17:32)
[2019-07-01] MEDS: Potassium Chloride 10% 20 MEQ/15 ML Soln 15 ML UD Cup PO SCH ×3 (08:26→19:19)
[2019-07-01] MEDS: Cholecalciferol (Vitamin D3) 25 MCG Tab PO SCH (08:28)
[2019-07-01] MEDS: Cyanocobalamin (Vitamin B12) 1,000 MCG Tab PO SCH (08:28)
[2019-07-01] MEDS: IBUPROFEN 600 MG PO PRN (08:30)
[2019-07-01] MEDS: buPROPion 100 MG Tab PO SCH (19:19)
[2019-07-01] MEDS: Simvastatin 10 MG Tab PO SCH (19:19)
[2019-07-01] MEDS: Levothyroxine Sodium 137 MCG TABLET PO SCH (19:19)
[2019-07-01] MEDS: Acetaminophen 325 MG Tab PO PRN (19:37)
[2019-07-02] MEDS: Fludrocortisone 0.1 MG Tab PO SCH ×2 (08:25→19:18)
[2019-07-02] MEDS: Albuterol/Ipratropium 3.0-0.5 MG/3 ML Neb Soln NEB SCH ×2 (08:25→19:19)
[2019-07-02] MEDS: Citalopram 20 MG Tab PO SCH (08:25)
[2019-07-02] MEDS: FIDAXOMICIN 200 MG PO SCH ×2 (08:26→17:45)
[2019-07-02] MEDS: Furosemide 20 MG Tab PO SCH (08:26)
[2019-07-02] MEDS: Niacin 500 MG Tab PO SCH ×2 (08:27→17:45)
[2019-07-02] MEDS: Potassium Chloride 10% 20 MEQ/15 ML Soln 15 ML UD Cup PO SCH ×3 (08:27→19:18)
[2019-07-02] MEDS: Cholecalciferol (Vitamin D3) 25 MCG Tab PO SCH (08:28)
[2019-07-02] MEDS: Cyanocobalamin (Vitamin B12) 1,000 MCG Tab PO SCH (08:28)
[2019-07-02] MEDS: Acetaminophen 325 MG Tab PO PRN ×2 (08:29→23:37)
[2019-07-02] MEDS: Simvastatin 10 MG Tab PO SCH (19:18)
[2019-07-02] MEDS: buPROPion 100 MG Tab PO SCH (19:18)
[2019-07-02] MEDS: Levothyroxine Sodium 137 MCG TABLET PO SCH (19:18)
[2019-07-03] MEDS: Furosemide 20 MG Tab PO SCH (07:46)
[2019-07-03] MEDS: Cholecalciferol (Vitamin D3) 25 MCG Tab PO SCH (07:47)
[2019-07-03] MEDS: Fludrocortisone 0.1 MG Tab PO SCH ×2 (07:47→19:12)
[2019-07-03] MEDS: Citalopram 20 MG Tab PO SCH (07:47)
[2019-07-03] MEDS: Niacin 500 MG Tab PO SCH ×2 (07:48→17:11)
[2019-07-03] MEDS: FIDAXOMICIN 200 MG PO SCH ×2 (07:48→17:11)
[2019-07-03] MEDS: Albuterol/Ipratropium 3.0-0.5 MG/3 ML Neb Soln NEB SCH ×2 (07:48→19:16)
[2019-07-03] MEDS: Potassium Chloride 10% 20 MEQ/15 ML Soln 15 ML UD Cup PO SCH ×3 (07:49→19:12)
[2019-07-03] MEDS: Cyanocobalamin (Vitamin B12) 1,000 MCG Tab PO SCH (07:49)
[2019-07-03] MEDS: buPROPion 100 MG Tab PO SCH (19:12)
[2019-07-03] MEDS: Levothyroxine Sodium 137 MCG TABLET PO SCH (19:12)
[2019-07-03] MEDS: Simvastatin 10 MG Tab PO SCH (19:12)
[2019-07-03] MEDS: Acetaminophen 325 MG Tab PO PRN (19:12)
[2019-07-04] MEDS: Fludrocortisone 0.1 MG Tab PO SCH ×2 (07:26→19:23)
[2019-07-04] MEDS: Furosemide 20 MG Tab PO SCH (07:26)
[2019-07-04] MEDS: Citalopram 20 MG Tab PO SCH (07:27)
[2019-07-04] MEDS: Albuterol/Ipratropium 3.0-0.5 MG/3 ML Neb Soln NEB SCH ×2 (07:27→19:24)
[2019-07-04] MEDS: FIDAXOMICIN 200 MG PO SCH ×2 (07:27→18:10)
[2019-07-04] MEDS: Cyanocobalamin (Vitamin B12) 1,000 MCG Tab PO SCH (07:28)
[2019-07-04] MEDS: Niacin 500 MG Tab PO SCH ×2 (07:28→18:10)
[2019-07-04] MEDS: Potassium Chloride 10% 20 MEQ/15 ML Soln 15 ML UD Cup PO SCH ×3 (07:29→19:23)
[2019-07-04] MEDS: Cholecalciferol (Vitamin D3) 25 MCG Tab PO SCH (07:29)
[2019-07-04] MEDS: Acetaminophen 325 MG Tab PO PRN (09:02)
[2019-07-04] MEDS: buPROPion 100 MG Tab PO SCH (19:23)
[2019-07-04] MEDS: Simvastatin 10 MG Tab PO SCH (19:23)
[2019-07-04] MEDS: Levothyroxine Sodium 137 MCG TABLET PO SCH (19:23)
[2019-07-05] MEDS: Fludrocortisone 0.1 MG Tab PO SCH ×2 (07:45→19:52)
[2019-07-05] MEDS: Citalopram 20 MG Tab PO SCH (07:45)
[2019-07-05] MEDS: Albuterol/Ipratropium 3.0-0.5 MG/3 ML Neb Soln NEB SCH ×2 (07:45→19:52)
[2019-07-05] MEDS: Furosemide 20 MG Tab PO SCH (07:45)
[2019-07-05] MEDS: FIDAXOMICIN 200 MG PO SCH ×2 (07:46→17:16)
[2019-07-05] MEDS: Potassium Chloride 10% 20 MEQ/15 ML Soln 15 ML UD Cup PO SCH ×3 (07:47→19:53)
[2019-07-05] MEDS: Niacin 500 MG Tab PO SCH ×2 (07:47→17:17)
[2019-07-05] MEDS: Cyanocobalamin (Vitamin B12) 1,000 MCG Tab PO SCH (07:48)
[2019-07-05] MEDS: Cholecalciferol (Vitamin D3) 25 MCG Tab PO SCH (07:48)
[2019-07-05] MEDS: Acetaminophen 325 MG Tab PO PRN (07:52)
[2019-07-05] MEDS: Levothyroxine Sodium 137 MCG TABLET PO SCH (19:53)
[2019-07-05] MEDS: Simvastatin 10 MG Tab PO SCH (19:53)
[2019-07-05] MEDS: buPROPion 100 MG Tab PO SCH (19:53)
[2019-07-06] MEDS: Acetaminophen 325 MG Tab PO PRN ×3 (01:05→22:48)
[2019-07-06] MEDS: Fludrocortisone 0.1 MG Tab PO SCH ×2 (07:55→19:25)
[2019-07-06] MEDS: Albuterol/Ipratropium 3.0-0.5 MG/3 ML Neb Soln NEB SCH ×2 (07:55→19:25)
[2019-07-06] MEDS: Citalopram 20 MG Tab PO SCH (07:55)
[2019-07-06] MEDS: Furosemide 20 MG Tab PO SCH (07:55)
[2019-07-06] MEDS: Cyanocobalamin (Vitamin B12) 1,000 MCG Tab PO SCH (07:56)
[2019-07-06] MEDS: FIDAXOMICIN 200 MG PO SCH ×2 (07:56→17:32)
[2019-07-06] MEDS: Niacin 500 MG Tab PO SCH ×2 (07:56→17:32)
[2019-07-06] MEDS: Cholecalciferol (Vitamin D3) 25 MCG Tab PO SCH (07:57)
[2019-07-06] MEDS: Potassium Chloride 10% 20 MEQ/15 ML Soln 15 ML UD Cup PO SCH ×3 (07:58→19:25)
[2019-07-06] MEDS: Levothyroxine Sodium 137 MCG TABLET PO SCH (19:25)
[2019-07-06] MEDS: Simvastatin 10 MG Tab PO SCH (19:26)
[2019-07-06] MEDS: buPROPion 100 MG Tab PO SCH (19:26)
[2019-07-07] MEDS: Furosemide 20 MG Tab PO SCH (08:02)
[2019-07-07] MEDS: FIDAXOMICIN 200 MG PO SCH ×2 (08:02→17:40)
[2019-07-07] MEDS: Citalopram 20 MG Tab PO SCH (08:02)
[2019-07-07] MEDS: Fludrocortisone 0.1 MG Tab PO SCH ×2 (08:02→19:16)
[2019-07-07] MEDS: Cholecalciferol (Vitamin D3) 25 MCG Tab PO SCH (08:03)
[2019-07-07] MEDS: Cyanocobalamin (Vitamin B12) 1,000 MCG Tab PO SCH (08:03)
[2019-07-07] MEDS: Niacin 500 MG Tab PO SCH ×2 (08:03→17:40)
[2019-07-07] MEDS: Acetaminophen 325 MG Tab PO PRN (08:04)
[2019-07-07] MEDS: Potassium Chloride 10% 20 MEQ/15 ML Soln 15 ML UD Cup PO SCH ×3 (08:05→19:17)
[2019-07-07] MEDS: Albuterol/Ipratropium 3.0-0.5 MG/3 ML Neb Soln NEB SCH ×2 (08:06→19:16)
[2019-07-07] MEDS: Levothyroxine Sodium 137 MCG TABLET PO SCH (19:16)
[2019-07-07] MEDS: buPROPion 100 MG Tab PO SCH (19:18)
[2019-07-07] MEDS: Simvastatin 10 MG Tab PO SCH (19:18)
[2019-07-08] MEDS: Acetaminophen 325 MG Tab PO PRN ×3 (00:19→19:27)
[2019-07-08] MEDS: Citalopram 20 MG Tab PO SCH (07:23)
[2019-07-08] MEDS: Albuterol/Ipratropium 3.0-0.5 MG/3 ML Neb Soln NEB SCH ×2 (07:24→19:25)
[2019-07-08] MEDS: Furosemide 20 MG Tab PO SCH (07:25)
[2019-07-08] MEDS: FIDAXOMICIN 200 MG PO SCH ×2 (07:25→17:13)
[2019-07-08] MEDS: Fludrocortisone 0.1 MG Tab PO SCH ×2 (07:25→19:25)
[2019-07-08] MEDS: Potassium Chloride 10% 20 MEQ/15 ML Soln 15 ML UD Cup PO SCH ×3 (07:26→19:26)
[2019-07-08] MEDS: Niacin 500 MG Tab PO SCH ×2 (07:26→17:14)
[2019-07-08] MEDS: Cyanocobalamin (Vitamin B12) 1,000 MCG Tab PO SCH (07:27)
[2019-07-08] MEDS: Cholecalciferol (Vitamin D3) 25 MCG Tab PO SCH (07:27)
[2019-07-08] MEDS: IBUPROFEN 600 MG PO PRN (13:04)
[2019-07-08] MEDS: Levothyroxine Sodium 137 MCG TABLET PO SCH (19:25)
[2019-07-08] MEDS: Simvastatin 10 MG Tab PO SCH (19:26)
[2019-07-08] MEDS: buPROPion 100 MG Tab PO SCH (19:26)
[2019-07-09] MEDS: Albuterol/Ipratropium 3.0-0.5 MG/3 ML Neb Soln NEB SCH ×2 (07:21→19:15)
[2019-07-09] MEDS: IBUPROFEN 600 MG PO PRN ×2 (07:23→22:49)
[2019-07-09] MEDS: FIDAXOMICIN 200 MG PO SCH (07:24)
[2019-07-09] MEDS: Fludrocortisone 0.1 MG Tab PO SCH ×2 (07:24→19:17)
[2019-07-09] MEDS: Furosemide 20 MG Tab PO SCH (07:24)
[2019-07-09] MEDS: Citalopram 20 MG Tab PO SCH (07:24)
[2019-07-09] MEDS: Niacin 500 MG Tab PO SCH ×2 (07:25→17:14)
[2019-07-09] MEDS: Potassium Chloride 10% 20 MEQ/15 ML Soln 15 ML UD Cup PO SCH ×3 (07:25→19:18)
[2019-07-09] MEDS: Cyanocobalamin (Vitamin B12) 1,000 MCG Tab PO SCH (07:26)
[2019-07-09] MEDS: Cholecalciferol (Vitamin D3) 25 MCG Tab PO SCH (07:26)
[2019-07-09] MEDS: Acetaminophen 325 MG Tab PO PRN ×2 (13:11→19:16)
[2019-07-09] MEDS: Simvastatin 10 MG Tab PO SCH (19:17)
[2019-07-09] MEDS: Levothyroxine Sodium 137 MCG TABLET PO SCH (19:17)
[2019-07-09] MEDS: buPROPion 100 MG Tab PO SCH (19:17)
[2019-07-10] MEDS: Fludrocortisone 0.1 MG Tab PO SCH ×2 (08:02→19:25)
[2019-07-10] MEDS: Cholecalciferol (Vitamin D3) 25 MCG Tab PO SCH (08:02)
[2019-07-10] MEDS: Niacin 500 MG Tab PO SCH ×2 (08:02→17:23)
[2019-07-10] MEDS: Citalopram 20 MG Tab PO SCH (08:02)
[2019-07-10] MEDS: Furosemide 20 MG Tab PO SCH (08:02)
[2019-07-10] MEDS: Potassium Chloride 10% 20 MEQ/15 ML Soln 15 ML UD Cup PO SCH ×3 (08:03→19:34)
[2019-07-10] MEDS: Cyanocobalamin (Vitamin B12) 1,000 MCG Tab PO SCH (08:03)
[2019-07-10] MEDS: Albuterol/Ipratropium 3.0-0.5 MG/3 ML Neb Soln NEB SCH ×2 (08:04→19:24)
[2019-07-10] MEDS: Simvastatin 10 MG Tab PO SCH (19:25)
[2019-07-10] MEDS: Levothyroxine Sodium 137 MCG TABLET PO SCH (19:25)
[2019-07-10] MEDS: buPROPion 100 MG Tab PO SCH (19:25)
[2019-07-10] MEDS: Acetaminophen 325 MG Tab PO PRN (19:26)
[2019-07-11] MEDS: Fludrocortisone 0.1 MG Tab PO SCH ×2 (07:52→19:26)
[2019-07-11] MEDS: Albuterol/Ipratropium 3.0-0.5 MG/3 ML Neb Soln NEB SCH ×2 (07:52→19:24)
[2019-07-11] MEDS: Furosemide 20 MG Tab PO SCH (07:52)
[2019-07-11] MEDS: Citalopram 20 MG Tab PO SCH (07:52)
[2019-07-11] MEDS: Potassium Chloride 10% 20 MEQ/15 ML Soln 15 ML UD Cup PO SCH ×3 (07:53→19:27)
[2019-07-11] MEDS: Cholecalciferol (Vitamin D3) 25 MCG Tab PO SCH (07:53)
[2019-07-11] MEDS: Niacin 500 MG Tab PO SCH ×2 (07:53→17:29)
[2019-07-11] MEDS: Cyanocobalamin (Vitamin B12) 1,000 MCG Tab PO SCH (07:54)
[2019-07-11] MEDS: Acetaminophen 325 MG Tab PO PRN (19:25)
[2019-07-11] MEDS: buPROPion 100 MG Tab PO SCH (19:26)
[2019-07-11] MEDS: Simvastatin 10 MG Tab PO SCH (19:26)
[2019-07-11] MEDS: Levothyroxine Sodium 137 MCG TABLET PO SCH (19:26)
[2019-07-12] MEDS: Albuterol/Ipratropium 3.0-0.5 MG/3 ML Neb Soln NEB SCH ×2 (07:27→19:24)
[2019-07-12] MEDS: Citalopram 20 MG Tab PO SCH (07:29)
[2019-07-12] MEDS: Niacin 500 MG Tab PO SCH ×2 (07:29→17:10)
[2019-07-12] MEDS: Furosemide 20 MG Tab PO SCH (07:29)
[2019-07-12] MEDS: Fludrocortisone 0.1 MG Tab PO SCH ×2 (07:29→19:24)
[2019-07-12] MEDS: Cyanocobalamin (Vitamin B12) 1,000 MCG Tab PO SCH (07:30)
[2019-07-12] MEDS: Potassium Chloride 10% 20 MEQ/15 ML Soln 15 ML UD Cup PO SCH ×3 (07:30→19:25)
[2019-07-12] MEDS: Cholecalciferol (Vitamin D3) 25 MCG Tab PO SCH (07:30)
[2019-07-12] MEDS: IBUPROFEN 600 MG PO PRN ×2 (07:54→17:09)
[2019-07-12] MEDS: Acetaminophen 325 MG Tab PO PRN (13:03)
[2019-07-12] MEDS: Levothyroxine Sodium 137 MCG TABLET PO SCH (19:25)
[2019-07-12] MEDS: buPROPion 100 MG Tab PO SCH (19:26)
[2019-07-12] MEDS: Simvastatin 10 MG Tab PO SCH (19:26)
[2019-07-13] MEDS: Acetaminophen 325 MG Tab PO PRN (03:16)
[2019-07-13] MEDS: Citalopram 20 MG Tab PO SCH (07:59)
[2019-07-13] MEDS: Fludrocortisone 0.1 MG Tab PO SCH ×2 (07:59→19:22)
[2019-07-13] MEDS: Furosemide 20 MG Tab PO SCH (07:59)
[2019-07-13] MEDS: Potassium Chloride 10% 20 MEQ/15 ML Soln 15 ML UD Cup PO SCH ×3 (08:00→19:22)
[2019-07-13] MEDS: Niacin 500 MG Tab PO SCH ×2 (08:00→17:52)
[2019-07-13] MEDS: Albuterol/Ipratropium 3.0-0.5 MG/3 ML Neb Soln NEB SCH ×2 (08:00→19:23)
[2019-07-13] MEDS: Cyanocobalamin (Vitamin B12) 1,000 MCG Tab PO SCH (08:01)
[2019-07-13] MEDS: Cholecalciferol (Vitamin D3) 25 MCG Tab PO SCH (08:01)
[2019-07-13] MEDS: IBUPROFEN 600 MG PO PRN (08:02)
[2019-07-13] MEDS: Levothyroxine Sodium 137 MCG TABLET PO SCH (19:21)
[2019-07-13] MEDS: buPROPion 100 MG Tab PO SCH (19:21)
[2019-07-13] MEDS: Simvastatin 10 MG Tab PO SCH (19:21)
[2019-07-14] MEDS: Acetaminophen 325 MG Tab PO PRN ×2 (02:58→19:20)
[2019-07-14] MEDS: Cyanocobalamin (Vitamin B12) 1,000 MCG Tab PO SCH (08:00)
[2019-07-14] MEDS: Albuterol/Ipratropium 3.0-0.5 MG/3 ML Neb Soln NEB SCH ×2 (08:00→19:21)
[2019-07-14] MEDS: Cholecalciferol (Vitamin D3) 25 MCG Tab PO SCH (08:00)
[2019-07-14] MEDS: Niacin 500 MG Tab PO SCH ×2 (08:01→17:48)
[2019-07-14] MEDS: Furosemide 20 MG Tab PO SCH (08:01)
[2019-07-14] MEDS: Citalopram 20 MG Tab PO SCH (08:01)
[2019-07-14] MEDS: Fludrocortisone 0.1 MG Tab PO SCH ×2 (08:01→19:22)
[2019-07-14] MEDS: Potassium Chloride 10% 20 MEQ/15 ML Soln 15 ML UD Cup PO SCH ×3 (08:02→19:22)
[2019-07-14] MEDS: Simvastatin 10 MG Tab PO SCH (19:21)
[2019-07-14] MEDS: buPROPion 100 MG Tab PO SCH (19:22)
[2019-07-14] MEDS: Levothyroxine Sodium 137 MCG TABLET PO SCH (19:22)
[2019-07-15] MEDS: Acetaminophen 325 MG Tab PO PRN ×3 (02:15→19:14)
[2019-07-15] MEDS: Citalopram 20 MG Tab PO SCH (08:03)
[2019-07-15] MEDS: Furosemide 20 MG Tab PO SCH (08:03)
[2019-07-15] MEDS: Fludrocortisone 0.1 MG Tab PO SCH ×2 (08:03→19:11)
[2019-07-15] MEDS: Cyanocobalamin (Vitamin B12) 1,000 MCG Tab PO SCH (08:04)
[2019-07-15] MEDS: Cholecalciferol (Vitamin D3) 25 MCG Tab PO SCH (08:04)
[2019-07-15] MEDS: Albuterol/Ipratropium 3.0-0.5 MG/3 ML Neb Soln NEB SCH ×2 (08:04→19:10)
[2019-07-15] MEDS: Niacin 500 MG Tab PO SCH ×2 (08:04→17:35)
[2019-07-15] MEDS: Potassium Chloride 10% 20 MEQ/15 ML Soln 15 ML UD Cup PO SCH ×3 (08:05→19:12)
[2019-07-15] MEDS: guaiFENesin/Dextromethorphan 100-10 MG/5 ML Soln 10 ML Cup PO PRN (14:21)
[2019-07-15] MEDS: Simvastatin 10 MG Tab PO SCH (19:10)
[2019-07-15] MEDS: buPROPion 100 MG Tab PO SCH (19:11)
[2019-07-15] MEDS: Levothyroxine Sodium 137 MCG TABLET PO SCH (19:11)
[2019-07-16] MEDS: Acetaminophen 325 MG Tab PO PRN ×2 (01:42→10:09)
[2019-07-16] MEDS: guaiFENesin/Dextromethorphan 100-10 MG/5 ML Soln 10 ML Cup PO PRN ×2 (01:42→17:19)
[2019-07-16] MEDS: IBUPROFEN 600 MG PO PRN ×2 (07:32→17:18)
[2019-07-16] MEDS: Citalopram 20 MG Tab PO SCH (07:33)
[2019-07-16] MEDS: Albuterol/Ipratropium 3.0-0.5 MG/3 ML Neb Soln NEB SCH ×2 (07:33→19:39)
[2019-07-16] MEDS: Potassium Chloride 10% 20 MEQ/15 ML Soln 15 ML UD Cup PO SCH ×3 (07:34→19:41)
[2019-07-16] MEDS: Furosemide 20 MG Tab PO SCH (07:34)
[2019-07-16] MEDS: Niacin 500 MG Tab PO SCH ×2 (07:34→17:18)
[2019-07-16] MEDS: Fludrocortisone 0.1 MG Tab PO SCH ×2 (07:34→19:40)
[2019-07-16] MEDS: Cyanocobalamin (Vitamin B12) 1,000 MCG Tab PO SCH (07:35)
[2019-07-16] MEDS: Cholecalciferol (Vitamin D3) 25 MCG Tab PO SCH (07:35)
[2019-07-16] MEDS: buPROPion 100 MG Tab PO SCH (19:40)
[2019-07-16] MEDS: Levothyroxine Sodium 137 MCG TABLET PO SCH (19:40)
[2019-07-16] MEDS: Simvastatin 10 MG Tab PO SCH (19:41)
[2019-07-17] MEDS: guaiFENesin/Dextromethorphan 100-10 MG/5 ML Soln 10 ML Cup PO PRN ×4 (01:33→19:18)
[2019-07-17] MEDS: Acetaminophen 325 MG Tab PO PRN ×2 (04:46→10:04)
[2019-07-17] MEDS: Albuterol/Ipratropium 3.0-0.5 MG/3 ML Neb Soln NEB SCH ×2 (07:30→19:16)
[2019-07-17] MEDS: IBUPROFEN 600 MG PO PRN (07:31)
[2019-07-17] MEDS: Citalopram 20 MG Tab PO SCH (07:34)
[2019-07-17] MEDS: Furosemide 20 MG Tab PO SCH (07:34)
[2019-07-17] MEDS: Fludrocortisone 0.1 MG Tab PO SCH ×2 (07:34→19:17)
[2019-07-17] MEDS: Niacin 500 MG Tab PO SCH ×2 (07:34→17:12)
[2019-07-17] MEDS: Cyanocobalamin (Vitamin B12) 1,000 MCG Tab PO SCH (07:35)
[2019-07-17] MEDS: Cholecalciferol (Vitamin D3) 25 MCG Tab PO SCH (07:35)
[2019-07-17] MEDS: Potassium Chloride 10% 20 MEQ/15 ML Soln 15 ML UD Cup PO SCH ×3 (07:35→19:18)
[2019-07-17] MEDS: Levothyroxine Sodium 137 MCG TABLET PO SCH (19:17)
[2019-07-17] MEDS: Simvastatin 10 MG Tab PO SCH (19:17)
[2019-07-17] MEDS: buPROPion 100 MG Tab PO SCH (19:17)
[2019-07-18] MEDS: IBUPROFEN 600 MG PO PRN ×2 (07:12→17:12)
[2019-07-18] MEDS: guaiFENesin/Dextromethorphan 100-10 MG/5 ML Soln 10 ML Cup PO PRN ×3 (07:13→19:37)
[2019-07-18] MEDS: Potassium Chloride 10% 20 MEQ/15 ML Soln 15 ML UD Cup PO SCH ×3 (07:32→19:37)
[2019-07-18] MEDS: Citalopram 20 MG Tab PO SCH (07:32)
[2019-07-18] MEDS: Albuterol/Ipratropium 3.0-0.5 MG/3 ML Neb Soln NEB SCH ×2 (07:32→19:36)
[2019-07-18] MEDS: Fludrocortisone 0.1 MG Tab PO SCH ×2 (07:33→19:36)
[2019-07-18] MEDS: Furosemide 20 MG Tab PO SCH (07:33)
[2019-07-18] MEDS: Cholecalciferol (Vitamin D3) 25 MCG Tab PO SCH (07:34)
[2019-07-18] MEDS: Niacin 500 MG Tab PO SCH ×2 (07:34→17:12)
[2019-07-18] MEDS: Cyanocobalamin (Vitamin B12) 1,000 MCG Tab PO SCH (07:34)
[2019-07-18] MEDS: Acetaminophen 325 MG Tab PO PRN (08:10)
[2019-07-18] MEDS: buPROPion 100 MG Tab PO SCH (19:36)
[2019-07-18] MEDS: Levothyroxine Sodium 137 MCG TABLET PO SCH (19:36)
[2019-07-18] MEDS: Simvastatin 10 MG Tab PO SCH (19:37)
[2019-07-19] MEDS: guaiFENesin/Dextromethorphan 100-10 MG/5 ML Soln 10 ML Cup PO PRN ×2 (03:37→19:18)
[2019-07-19] MEDS: Acetaminophen 325 MG Tab PO PRN ×3 (03:37→19:17)
[2019-07-19] MEDS: IBUPROFEN 600 MG PO PRN ×2 (07:30→17:15)
[2019-07-19] MEDS: Furosemide 20 MG Tab PO SCH (07:31)
[2019-07-19] MEDS: Potassium Chloride 10% 20 MEQ/15 ML Soln 15 ML UD Cup PO SCH ×3 (07:31→19:20)
[2019-07-19] MEDS: Albuterol/Ipratropium 3.0-0.5 MG/3 ML Neb Soln NEB SCH ×2 (07:31→19:16)
[2019-07-19] MEDS: Niacin 500 MG Tab PO SCH ×2 (07:31→17:15)
[2019-07-19] MEDS: Fludrocortisone 0.1 MG Tab PO SCH ×2 (07:31→19:20)
[2019-07-19] MEDS: Citalopram 20 MG Tab PO SCH (07:31)
[2019-07-19] MEDS: Cholecalciferol (Vitamin D3) 25 MCG Tab PO SCH (07:32)
[2019-07-19] MEDS: Cyanocobalamin (Vitamin B12) 1,000 MCG Tab PO SCH (07:32)
[2019-07-19] MEDS: buPROPion 100 MG Tab PO SCH (19:19)
[2019-07-19] MEDS: Simvastatin 10 MG Tab PO SCH (19:19)
[2019-07-19] MEDS: Levothyroxine Sodium 137 MCG TABLET PO SCH (19:19)
[2019-07-20] MEDS: Fludrocortisone 0.1 MG Tab PO SCH ×2 (07:57→19:18)
[2019-07-20] MEDS: Citalopram 20 MG Tab PO SCH (07:57)
[2019-07-20] MEDS: Furosemide 20 MG Tab PO SCH (07:57)
[2019-07-20] MEDS: Albuterol/Ipratropium 3.0-0.5 MG/3 ML Neb Soln NEB SCH ×2 (07:57→19:17)
[2019-07-20] MEDS: Niacin 500 MG Tab PO SCH ×2 (07:58→17:55)
[2019-07-20] MEDS: Potassium Chloride 10% 20 MEQ/15 ML Soln 15 ML UD Cup PO SCH ×3 (07:59→19:18)
[2019-07-20] MEDS: Cyanocobalamin (Vitamin B12) 1,000 MCG Tab PO SCH (07:59)
[2019-07-20] MEDS: Cholecalciferol (Vitamin D3) 25 MCG Tab PO SCH (08:00)
[2019-07-20] MEDS: IBUPROFEN 600 MG PO PRN (15:12)
[2019-07-20] MEDS: Levothyroxine Sodium 137 MCG TABLET PO SCH (19:18)
[2019-07-20] MEDS: buPROPion 100 MG Tab PO SCH (19:25)
[2019-07-20] MEDS: Simvastatin 10 MG Tab PO SCH (19:25)
[2019-07-20] MEDS: guaiFENesin/Dextromethorphan 100-10 MG/5 ML Soln 10 ML Cup PO PRN (19:28)
[2019-07-21] MEDS: Citalopram 20 MG Tab PO SCH (08:15)
[2019-07-21] MEDS: Albuterol/Ipratropium 3.0-0.5 MG/3 ML Neb Soln NEB SCH ×2 (08:15→19:32)
[2019-07-21] MEDS: Fludrocortisone 0.1 MG Tab PO SCH ×2 (08:16→19:34)
[2019-07-21] MEDS: Furosemide 20 MG Tab PO SCH (08:16)
[2019-07-21] MEDS: Niacin 500 MG Tab PO SCH ×2 (08:16→17:25)
[2019-07-21] MEDS: Potassium Chloride 10% 20 MEQ/15 ML Soln 15 ML UD Cup PO SCH ×3 (08:17→19:35)
[2019-07-21] MEDS: Cyanocobalamin (Vitamin B12) 1,000 MCG Tab PO SCH (08:17)
[2019-07-21] MEDS: Cholecalciferol (Vitamin D3) 25 MCG Tab PO SCH (08:18)
[2019-07-21] MEDS: IBUPROFEN 600 MG PO PRN (09:55)
[2019-07-21] MEDS: Acetaminophen 325 MG Tab PO PRN (18:26)
[2019-07-21] MEDS: Betamethasone Dipropionate/Clotrimazole 0.05-1% Crm 15 GM Tube TOP SCH (19:32)
[2019-07-21] MEDS: Simvastatin 10 MG Tab PO SCH (19:34)
[2019-07-21] MEDS: buPROPion 100 MG Tab PO SCH (19:34)
[2019-07-21] MEDS: Levothyroxine Sodium 137 MCG TABLET PO SCH (19:34)
[2019-07-21] MEDS: GUAIFENESIN PO SCH (19:35)
[2019-07-21] MEDS: PSEUDOEPHEDRINE PO SCH (19:35)
[2019-07-22] MEDS: Acetaminophen 325 MG Tab PO PRN (02:08)
[2019-07-22] MEDS: Citalopram 20 MG Tab PO SCH (08:08)
[2019-07-22] MEDS: Furosemide 20 MG Tab PO SCH (08:09)
[2019-07-22] MEDS: Fludrocortisone 0.1 MG Tab PO SCH ×2 (08:09→19:27)
[2019-07-22] MEDS: Albuterol/Ipratropium 3.0-0.5 MG/3 ML Neb Soln NEB SCH ×2 (08:09→19:26)
[2019-07-22] MEDS: Niacin 500 MG Tab PO SCH ×2 (08:10→18:06)
[2019-07-22] MEDS: PSEUDOEPHEDRINE PO SCH ×2 (08:10→19:30)
[2019-07-22] MEDS: GUAIFENESIN PO SCH ×2 (08:10→19:30)
[2019-07-22] MEDS: Cholecalciferol (Vitamin D3) 25 MCG Tab PO SCH (08:11)
[2019-07-22] MEDS: Cyanocobalamin (Vitamin B12) 1,000 MCG Tab PO SCH (08:11)
[2019-07-22] MEDS: Potassium Chloride 10% 20 MEQ/15 ML Soln 15 ML UD Cup PO SCH ×3 (08:12→19:31)
[2019-07-22] MEDS: Betamethasone Dipropionate/Clotrimazole 0.05-1% Crm 15 GM Tube TOP SCH ×2 (08:12→19:29)
[2019-07-22] MEDS: IBUPROFEN 600 MG PO PRN (18:08)
[2019-07-22] MEDS: buPROPion 100 MG Tab PO SCH (19:26)
[2019-07-22] MEDS: Simvastatin 10 MG Tab PO SCH (19:27)
[2019-07-22] MEDS: Levothyroxine Sodium 137 MCG TABLET PO SCH (19:27)
[2019-07-23] MEDS: Furosemide 20 MG Tab PO SCH (08:18)
[2019-07-23] MEDS: Fludrocortisone 0.1 MG Tab PO SCH ×2 (08:18→19:32)
[2019-07-23] MEDS: Citalopram 20 MG Tab PO SCH (08:18)
[2019-07-23] MEDS: Albuterol/Ipratropium 3.0-0.5 MG/3 ML Neb Soln NEB SCH ×2 (08:19→19:33)
[2019-07-23] MEDS: Betamethasone Dipropionate/Clotrimazole 0.05-1% Crm 15 GM Tube TOP SCH (08:20)
[2019-07-23] MEDS: PSEUDOEPHEDRINE PO SCH ×2 (08:20→19:33)
[2019-07-23] MEDS: GUAIFENESIN PO SCH ×2 (08:20→19:33)
[2019-07-23] MEDS: Niacin 500 MG Tab PO SCH ×2 (08:20→17:59)
[2019-07-23] MEDS: Potassium Chloride 10% 20 MEQ/15 ML Soln 15 ML UD Cup PO SCH ×3 (08:21→19:35)
[2019-07-23] MEDS: Cyanocobalamin (Vitamin B12) 1,000 MCG Tab PO SCH (08:22)
[2019-07-23] MEDS: Cholecalciferol (Vitamin D3) 25 MCG Tab PO SCH (08:22)
[2019-07-23] MEDS: Albuterol/Ipratropium 3.0-0.5 MG/3 ML Neb Soln NEB PRN (13:16)
[2019-07-23] MEDS: ATROPINE PO PRN (17:59)
[2019-07-23] MEDS: DIPHENOXYLATE PO PRN (17:59)
[2019-07-23] MEDS: IBUPROFEN 600 MG PO PRN (18:00)
[2019-07-23] MEDS: buPROPion 100 MG Tab PO SCH (19:32)
[2019-07-23] MEDS: Acetaminophen 325 MG Tab PO PRN (19:32)
[2019-07-23] MEDS: Levothyroxine Sodium 137 MCG TABLET PO SCH (19:32)
[2019-07-23] MEDS: Simvastatin 10 MG Tab PO SCH (19:32)
[2019-07-23] MEDS: BENZONATATE 200 MG PO SCH (19:32)
[2019-07-23] MEDS: [UNRECOGNIZED DRUG - OTHER] TOP SCH (19:34)
[2019-07-23] MEDS: Budesonide 0.5 MG/2 ML Neb Susp NEB SCH (19:45)
[2019-07-24] MEDS: [UNRECOGNIZED DRUG - OTHER] TOP SCH ×2 (07:30→19:29)
[2019-07-24] MEDS: Furosemide 20 MG Tab PO SCH (07:31)
[2019-07-24] MEDS: Citalopram 20 MG Tab PO SCH (07:31)
[2019-07-24] MEDS: BENZONATATE 200 MG PO SCH ×2 (07:31→19:29)
[2019-07-24] MEDS: Fludrocortisone 0.1 MG Tab PO SCH ×2 (07:31→19:27)
[2019-07-24] MEDS: Budesonide 0.5 MG/2 ML Neb Susp NEB SCH ×2 (07:32→19:32)
[2019-07-24] MEDS: Albuterol/Ipratropium 3.0-0.5 MG/3 ML Neb Soln NEB SCH ×2 (07:32→19:27)
[2019-07-24] MEDS: PSEUDOEPHEDRINE PO SCH ×2 (07:32→19:34)
[2019-07-24] MEDS: GUAIFENESIN PO SCH ×2 (07:32→19:34)
[2019-07-24] MEDS: Potassium Chloride 10% 20 MEQ/15 ML Soln 15 ML UD Cup PO SCH ×3 (07:33→19:32)
[2019-07-24] MEDS: Cyanocobalamin (Vitamin B12) 1,000 MCG Tab PO SCH (07:33)
[2019-07-24] MEDS: Niacin 500 MG Tab PO SCH ×2 (07:34→17:39)
[2019-07-24] MEDS: Cholecalciferol (Vitamin D3) 25 MCG Tab PO SCH (07:34)
[2019-07-24] MEDS: DIPHENOXYLATE PO PRN (17:40)
[2019-07-24] MEDS: ATROPINE PO PRN (17:40)
[2019-07-24] MEDS: Levothyroxine Sodium 137 MCG TABLET PO SCH (19:28)
[2019-07-24] MEDS: buPROPion 100 MG Tab PO SCH (19:33)
[2019-07-24] MEDS: Simvastatin 10 MG Tab PO SCH (19:33)
[2019-07-24] MEDS: Acetaminophen 325 MG Tab PO PRN (23:29)
[2019-07-25] MEDS: [UNRECOGNIZED DRUG - OTHER] TOP SCH ×2 (07:51→19:49)
[2019-07-25] MEDS: Furosemide 20 MG Tab PO SCH (07:52)
[2019-07-25] MEDS: Albuterol/Ipratropium 3.0-0.5 MG/3 ML Neb Soln NEB SCH ×2 (07:52→19:48)
[2019-07-25] MEDS: Citalopram 20 MG Tab PO SCH (07:52)
[2019-07-25] MEDS: Fludrocortisone 0.1 MG Tab PO SCH ×2 (07:52→19:48)
[2019-07-25] MEDS: BENZONATATE 200 MG PO SCH ×2 (07:52→19:49)
[2019-07-25] MEDS: Budesonide 0.5 MG/2 ML Neb Susp NEB SCH ×2 (07:53→19:50)
[2019-07-25] MEDS: Potassium Chloride 10% 20 MEQ/15 ML Soln 15 ML UD Cup PO SCH ×3 (07:53→19:51)
[2019-07-25] MEDS: Cholecalciferol (Vitamin D3) 25 MCG Tab PO SCH (07:54)
[2019-07-25] MEDS: Niacin 500 MG Tab PO SCH ×2 (07:54→17:22)
[2019-07-25] MEDS: Cyanocobalamin (Vitamin B12) 1,000 MCG Tab PO SCH (07:54)
[2019-07-25] MEDS: PSEUDOEPHEDRINE PO SCH ×2 (07:55→19:49)
[2019-07-25] MEDS: GUAIFENESIN PO SCH ×2 (07:55→19:49)
[2019-07-25] MEDS: Levothyroxine Sodium 137 MCG TABLET PO SCH (19:48)
[2019-07-25] MEDS: buPROPion 100 MG Tab PO SCH (19:50)
[2019-07-25] MEDS: Simvastatin 10 MG Tab PO SCH (19:50)
[2019-07-25] MEDS: DIPHENOXYLATE PO PRN (19:56)
[2019-07-25] MEDS: ATROPINE PO PRN (19:56)
[2019-07-26] MEDS: Acetaminophen 325 MG Tab PO PRN ×2 (03:41→18:10)
[2019-07-26] MEDS: Budesonide 0.5 MG/2 ML Neb Susp NEB SCH ×2 (07:59→19:40)
[2019-07-26] MEDS: Albuterol/Ipratropium 3.0-0.5 MG/3 ML Neb Soln NEB SCH ×2 (07:59→19:35)
[2019-07-26] MEDS: Fludrocortisone 0.1 MG Tab PO SCH ×2 (08:00→19:37)
[2019-07-26] MEDS: Citalopram 20 MG Tab PO SCH (08:00)
[2019-07-26] MEDS: BENZONATATE 200 MG PO SCH ×2 (08:00→19:37)
[2019-07-26] MEDS: Furosemide 20 MG Tab PO SCH (08:00)
[2019-07-26] MEDS: Niacin 500 MG Tab PO SCH ×2 (08:01→17:14)
[2019-07-26] MEDS: [UNRECOGNIZED DRUG - OTHER] TOP SCH ×2 (08:01→19:38)
[2019-07-26] MEDS: GUAIFENESIN PO SCH ×2 (08:01→19:38)
[2019-07-26] MEDS: PSEUDOEPHEDRINE PO SCH ×2 (08:01→19:38)
[2019-07-26] MEDS: Potassium Chloride 10% 20 MEQ/15 ML Soln 15 ML UD Cup PO SCH ×3 (08:02→19:39)
[2019-07-26] MEDS: Cholecalciferol (Vitamin D3) 25 MCG Tab PO SCH (08:03)
[2019-07-26] MEDS: Cyanocobalamin (Vitamin B12) 1,000 MCG Tab PO SCH (08:03)
[2019-07-26] MEDS: DIPHENOXYLATE PO PRN (09:54)
[2019-07-26] MEDS: ATROPINE PO PRN (09:54)
[2019-07-26] MEDS: Levothyroxine Sodium 137 MCG TABLET PO SCH (19:37)
[2019-07-26] MEDS: buPROPion 100 MG Tab PO SCH (19:40)
[2019-07-26] MEDS: Simvastatin 10 MG Tab PO SCH (19:40)
[2019-07-27] MEDS: Potassium Chloride 10% 20 MEQ/15 ML Soln 15 ML UD Cup PO SCH ×3 (07:37→19:22)
[2019-07-27] MEDS: Citalopram 20 MG Tab PO SCH (07:38)
[2019-07-27] MEDS: Fludrocortisone 0.1 MG Tab PO SCH ×2 (07:39→19:22)
[2019-07-27] MEDS: Furosemide 20 MG Tab PO SCH (07:39)
[2019-07-27] MEDS: Albuterol/Ipratropium 3.0-0.5 MG/3 ML Neb Soln NEB SCH ×2 (07:39→19:24)
[2019-07-27] MEDS: PSEUDOEPHEDRINE PO SCH ×2 (07:40→19:22)
[2019-07-27] MEDS: BENZONATATE 200 MG PO SCH ×2 (07:40→19:22)
[2019-07-27] MEDS: GUAIFENESIN PO SCH ×2 (07:40→19:22)
[2019-07-27] MEDS: [UNRECOGNIZED DRUG - OTHER] TOP SCH ×2 (07:40→19:22)
[2019-07-27] MEDS: Niacin 500 MG Tab PO SCH ×2 (07:41→17:08)
[2019-07-27] MEDS: Cholecalciferol (Vitamin D3) 25 MCG Tab PO SCH (07:41)
[2019-07-27] MEDS: Cyanocobalamin (Vitamin B12) 1,000 MCG Tab PO SCH (07:41)
[2019-07-27] MEDS: IBUPROFEN 600 MG PO PRN ×2 (07:42→17:08)
[2019-07-27] MEDS: Budesonide 0.5 MG/2 ML Neb Susp NEB SCH ×2 (08:08→19:38)
[2019-07-27] MEDS: Acetaminophen 325 MG Tab PO PRN (13:07)
[2019-07-27] MEDS: Simvastatin 10 MG Tab PO SCH (19:22)
[2019-07-27] MEDS: buPROPion 100 MG Tab PO SCH (19:22)
[2019-07-27] MEDS: Levothyroxine Sodium 137 MCG TABLET PO SCH (19:22)
[2019-07-28] MEDS: IBUPROFEN 600 MG PO PRN ×2 (07:33→17:13)
[2019-07-28] MEDS: Albuterol/Ipratropium 3.0-0.5 MG/3 ML Neb Soln NEB SCH ×2 (07:34→19:14)
[2019-07-28] MEDS: Furosemide 20 MG Tab PO SCH (07:35)
[2019-07-28] MEDS: Citalopram 20 MG Tab PO SCH (07:35)
[2019-07-28] MEDS: Fludrocortisone 0.1 MG Tab PO SCH ×2 (07:35→19:15)
[2019-07-28] MEDS: BENZONATATE 200 MG PO SCH ×2 (07:36→19:15)
[2019-07-28] MEDS: PSEUDOEPHEDRINE PO SCH ×2 (07:36→19:16)
[2019-07-28] MEDS: Niacin 500 MG Tab PO SCH ×2 (07:36→17:12)
[2019-07-28] MEDS: GUAIFENESIN PO SCH ×2 (07:36→19:16)
[2019-07-28] MEDS: [UNRECOGNIZED DRUG - OTHER] TOP SCH ×2 (07:36→19:17)
[2019-07-28] MEDS: Cyanocobalamin (Vitamin B12) 1,000 MCG Tab PO SCH (07:37)
[2019-07-28] MEDS: Potassium Chloride 10% 20 MEQ/15 ML Soln 15 ML UD Cup PO SCH ×3 (07:37→19:15)
[2019-07-28] MEDS: Cholecalciferol (Vitamin D3) 25 MCG Tab PO SCH (07:38)
[2019-07-28] MEDS: Budesonide 0.5 MG/2 ML Neb Susp NEB SCH ×2 (08:13→19:43)
[2019-07-28] MEDS: Acetaminophen 325 MG Tab PO PRN (13:00)
[2019-07-28] MEDS: Levothyroxine Sodium 137 MCG TABLET PO SCH (19:15)
[2019-07-28] MEDS: buPROPion 100 MG Tab PO SCH (19:15)
[2019-07-28] MEDS: Simvastatin 10 MG Tab PO SCH (19:18)
[2019-07-29] MEDS: Albuterol/Ipratropium 3.0-0.5 MG/3 ML Neb Soln NEB SCH ×2 (07:16→19:29)
[2019-07-29] MEDS: IBUPROFEN 600 MG PO PRN ×2 (07:17→17:14)
[2019-07-29] MEDS: Citalopram 20 MG Tab PO SCH (07:18)
[2019-07-29] MEDS: Potassium Chloride 10% 20 MEQ/15 ML Soln 15 ML UD Cup PO SCH ×3 (07:18→19:35)
[2019-07-29] MEDS: Fludrocortisone 0.1 MG Tab PO SCH ×2 (07:19→19:30)
[2019-07-29] MEDS: BENZONATATE 200 MG PO SCH ×2 (07:19→19:31)
[2019-07-29] MEDS: Furosemide 20 MG Tab PO SCH (07:19)
[2019-07-29] MEDS: GUAIFENESIN PO SCH ×2 (07:19→19:30)
[2019-07-29] MEDS: PSEUDOEPHEDRINE PO SCH ×2 (07:19→19:30)
[2019-07-29] MEDS: Niacin 500 MG Tab PO SCH ×2 (07:20→17:14)
[2019-07-29] MEDS: [UNRECOGNIZED DRUG - OTHER] TOP SCH ×2 (07:20→19:31)
[2019-07-29] MEDS: Cyanocobalamin (Vitamin B12) 1,000 MCG Tab PO SCH (07:21)
[2019-07-29] MEDS: Cholecalciferol (Vitamin D3) 25 MCG Tab PO SCH (07:21)
[2019-07-29] MEDS: Budesonide 0.5 MG/2 ML Neb Susp NEB SCH ×2 (07:48→19:32)
[2019-07-29] MEDS: ATROPINE PO PRN (08:45)
[2019-07-29] MEDS: DIPHENOXYLATE PO PRN (08:45)
--- NOTE | 2019-07-29 09:11 | PCM.SN ---
- Free Text/Narrative Note: Patient continues to have intermittent moderate episodes of diarrhea with no improvement with dietary changes, including reduction of fat in her diet, etc.. Her last C. difficile toxin stool evaluation on 07/21 was negative, however patient has had recurrent positive C. difficile specimens in the past. I suspect that the patient is a C. difficile carrier, who has failed multiple previous treatments in the past including Flagyl, vancomycin, etc.. Specimens for culture and sensitivity and ova and parasites have been negative to this point. Isolation precautions will be continued on a long-term basis for now with additional celiac screen and surgical consultation for possible colonoscopy with several biopsies ordered today. Nursing staff informed.
[2019-07-29] MEDS: Acetaminophen 325 MG Tab PO PRN (13:29)
[2019-07-29] MEDS: Levothyroxine Sodium 137 MCG TABLET PO SCH (19:30)
[2019-07-29] MEDS: Simvastatin 10 MG Tab PO SCH (19:32)
[2019-07-29] MEDS: buPROPion 100 MG Tab PO SCH (19:32)
[2019-07-30] MEDS: Fludrocortisone 0.1 MG Tab PO SCH ×2 (08:02→19:24)
[2019-07-30] MEDS: Citalopram 20 MG Tab PO SCH (08:02)
[2019-07-30] MEDS: Furosemide 20 MG Tab PO SCH (08:02)
[2019-07-30] MEDS: BENZONATATE 200 MG PO SCH ×2 (08:02→19:24)
[2019-07-30] MEDS: Albuterol/Ipratropium 3.0-0.5 MG/3 ML Neb Soln NEB SCH ×2 (08:03→19:28)
[2019-07-30] MEDS: PSEUDOEPHEDRINE PO SCH ×2 (08:03→19:25)
[2019-07-30] MEDS: GUAIFENESIN PO SCH ×2 (08:03→19:25)
[2019-07-30] MEDS: Niacin 500 MG Tab PO SCH ×2 (08:05→17:23)
[2019-07-30] MEDS: [UNRECOGNIZED DRUG - OTHER] TOP SCH ×2 (08:05→19:26)
[2019-07-30] MEDS: Budesonide 0.5 MG/2 ML Neb Susp NEB SCH ×2 (08:05→19:20)
[2019-07-30] MEDS: Cholecalciferol (Vitamin D3) 25 MCG Tab PO SCH (08:06)
[2019-07-30] MEDS: Cyanocobalamin (Vitamin B12) 1,000 MCG Tab PO SCH (08:06)
[2019-07-30] MEDS: Potassium Chloride 10% 20 MEQ/15 ML Soln 15 ML UD Cup PO SCH ×3 (08:07→19:27)
[2019-07-30] MEDS: Acetaminophen 325 MG Tab PO PRN (19:23)
[2019-07-30] MEDS: Levothyroxine Sodium 137 MCG TABLET PO SCH (19:24)
[2019-07-30] MEDS: buPROPion 100 MG Tab PO SCH (19:25)
[2019-07-30] MEDS: Simvastatin 10 MG Tab PO SCH (19:25)
[2019-07-31] MEDS: PSEUDOEPHEDRINE PO SCH ×2 (07:37→19:30)
[2019-07-31] MEDS: [UNRECOGNIZED DRUG - OTHER] TOP SCH ×2 (07:37→19:31)
[2019-07-31] MEDS: GUAIFENESIN PO SCH ×2 (07:37→19:30)
[2019-07-31] MEDS: Furosemide 20 MG Tab PO SCH (07:37)
[2019-07-31] MEDS: BENZONATATE 200 MG PO SCH ×2 (07:37→19:30)
[2019-07-31] MEDS: Citalopram 20 MG Tab PO SCH (07:37)
[2019-07-31] MEDS: Fludrocortisone 0.1 MG Tab PO SCH ×2 (07:37→19:29)
[2019-07-31] MEDS: Albuterol/Ipratropium 3.0-0.5 MG/3 ML Neb Soln NEB SCH ×2 (07:38→19:29)
[2019-07-31] MEDS: Budesonide 0.5 MG/2 ML Neb Susp NEB SCH ×2 (07:38→19:32)
[2019-07-31] MEDS: Cholecalciferol (Vitamin D3) 25 MCG Tab PO SCH (07:38)
[2019-07-31] MEDS: Cyanocobalamin (Vitamin B12) 1,000 MCG Tab PO SCH (07:38)
[2019-07-31] MEDS: Niacin 500 MG Tab PO SCH ×2 (07:38→17:43)
[2019-07-31] MEDS: Potassium Chloride 10% 20 MEQ/15 ML Soln 15 ML UD Cup PO SCH ×3 (07:40→19:32)
[2019-07-31] MEDS: Levothyroxine Sodium 137 MCG TABLET PO SCH (19:29)
[2019-07-31] MEDS: Simvastatin 10 MG Tab PO SCH (19:32)
[2019-07-31] MEDS: buPROPion 100 MG Tab PO SCH (19:32)
[2019-07-31] MEDS: Acetaminophen 325 MG Tab PO PRN (19:43)
[2019-08-01] MEDS: BENZONATATE 200 MG PO SCH ×2 (07:53→19:06)
[2019-08-01] MEDS: Citalopram 20 MG Tab PO SCH (07:53)
[2019-08-01] MEDS: Albuterol/Ipratropium 3.0-0.5 MG/3 ML Neb Soln NEB SCH ×2 (07:53→19:04)
[2019-08-01] MEDS: Budesonide 0.5 MG/2 ML Neb Susp NEB SCH ×2 (07:53→19:08)
[2019-08-01] MEDS: Furosemide 20 MG Tab PO SCH (07:53)
[2019-08-01] MEDS: Fludrocortisone 0.1 MG Tab PO SCH ×2 (07:53→19:05)
[2019-08-01] MEDS: [UNRECOGNIZED DRUG - OTHER] TOP SCH ×2 (07:54→19:06)
[2019-08-01] MEDS: Niacin 500 MG Tab PO SCH ×2 (07:54→17:56)
[2019-08-01] MEDS: Potassium Chloride 10% 20 MEQ/15 ML Soln 15 ML UD Cup PO SCH ×3 (07:55→19:08)
[2019-08-01] MEDS: Cholecalciferol (Vitamin D3) 25 MCG Tab PO SCH (07:55)
[2019-08-01] MEDS: Cyanocobalamin (Vitamin B12) 1,000 MCG Tab PO SCH (07:55)
[2019-08-01] MEDS: Levothyroxine Sodium 137 MCG TABLET PO SCH (19:05)
[2019-08-01] MEDS: Simvastatin 10 MG Tab PO SCH (19:09)
[2019-08-01] MEDS: buPROPion 100 MG Tab PO SCH (19:09)
[2019-08-01] MEDS: Acetaminophen 325 MG Tab PO PRN (19:10)
[2019-08-02] MEDS: [UNRECOGNIZED DRUG - OTHER] TOP SCH ×2 (14:36→19:16)
[2019-08-02] MEDS: BENZONATATE 200 MG PO SCH ×2 (14:36→19:15)
[2019-08-02] MEDS: Furosemide 20 MG Tab PO SCH (14:36)
[2019-08-02] MEDS: Fludrocortisone 0.1 MG Tab PO SCH ×2 (14:36→19:15)
[2019-08-02] MEDS: Citalopram 20 MG Tab PO SCH (14:36)
[2019-08-02] MEDS: Albuterol/Ipratropium 3.0-0.5 MG/3 ML Neb Soln NEB SCH ×2 (14:36→19:11)
[2019-08-02] MEDS: Niacin 500 MG Tab PO SCH ×2 (14:37→17:34)
[2019-08-02] MEDS: Cyanocobalamin (Vitamin B12) 1,000 MCG Tab PO SCH (14:37)
[2019-08-02] MEDS: Budesonide 0.5 MG/2 ML Neb Susp NEB SCH ×2 (14:37→19:13)
[2019-08-02] MEDS: Potassium Chloride 10% 20 MEQ/15 ML Soln 15 ML UD Cup PO SCH ×3 (14:37→19:16)
[2019-08-02] MEDS: Cholecalciferol (Vitamin D3) 25 MCG Tab PO SCH (14:37)
[2019-08-02] MEDS: Simvastatin 10 MG Tab PO SCH (19:14)
[2019-08-02] MEDS: Levothyroxine Sodium 137 MCG TABLET PO SCH (19:15)
[2019-08-02] MEDS: buPROPion 100 MG Tab PO SCH (19:15)
[2019-08-03] MEDS: Acetaminophen 325 MG Tab PO PRN (00:16)
[2019-08-03] MEDS: Furosemide 20 MG Tab PO SCH (08:01)
[2019-08-03] MEDS: BENZONATATE 200 MG PO SCH ×2 (08:01→19:38)
[2019-08-03] MEDS: Fludrocortisone 0.1 MG Tab PO SCH ×2 (08:01→19:38)
[2019-08-03] MEDS: Citalopram 20 MG Tab PO SCH (08:01)
[2019-08-03] MEDS: Potassium Chloride 10% 20 MEQ/15 ML Soln 15 ML UD Cup PO SCH ×2 (08:02→14:18)
[2019-08-03] MEDS: Budesonide 0.5 MG/2 ML Neb Susp NEB SCH ×2 (08:02→19:38)
[2019-08-03] MEDS: Albuterol/Ipratropium 3.0-0.5 MG/3 ML Neb Soln NEB SCH ×2 (08:02→19:37)
[2019-08-03] MEDS: Niacin 500 MG Tab PO SCH ×2 (08:03→17:34)
[2019-08-03] MEDS: Cholecalciferol (Vitamin D3) 25 MCG Tab PO SCH (08:03)
[2019-08-03] MEDS: Cyanocobalamin (Vitamin B12) 1,000 MCG Tab PO SCH (08:03)
[2019-08-03] MEDS: Potassium Chloride 20 MEQ Tab.ER PO SCH (17:34)
[2019-08-03] MEDS: buPROPion 100 MG Tab PO SCH (19:38)
[2019-08-03] MEDS: Simvastatin 10 MG Tab PO SCH (19:38)
[2019-08-03] MEDS: Levothyroxine Sodium 137 MCG TABLET PO SCH (19:38)
[2019-08-03] MEDS: NYSTATIN TOP SCH (19:39)
[2019-08-03] MEDS: DIPHENOXYLATE PO PRN (20:02)
[2019-08-03] MEDS: ATROPINE PO PRN (20:02)
[2019-08-04] MEDS: Potassium Chloride 20 MEQ Tab.ER PO SCH ×3 (07:48→17:11)
[2019-08-04] MEDS: Fludrocortisone 0.1 MG Tab PO SCH ×2 (07:49→19:12)
[2019-08-04] MEDS: Citalopram 20 MG Tab PO SCH (07:49)
[2019-08-04] MEDS: BENZONATATE 200 MG PO SCH ×2 (07:50→19:12)
[2019-08-04] MEDS: Albuterol/Ipratropium 3.0-0.5 MG/3 ML Neb Soln NEB SCH ×2 (07:50→19:11)
[2019-08-04] MEDS: Furosemide 20 MG Tab PO SCH (07:50)
[2019-08-04] MEDS: Niacin 500 MG Tab PO SCH ×2 (07:51→17:11)
[2019-08-04] MEDS: NYSTATIN TOP SCH ×2 (07:52→19:12)
[2019-08-04] MEDS: Budesonide 0.5 MG/2 ML Neb Susp NEB SCH ×2 (07:53→19:42)
[2019-08-04] MEDS: Cyanocobalamin (Vitamin B12) 1,000 MCG Tab PO SCH (07:54)
[2019-08-04] MEDS: Cholecalciferol (Vitamin D3) 25 MCG Tab PO SCH (07:54)
[2019-08-04] MEDS: Acetaminophen 325 MG Tab PO PRN (07:55)
[2019-08-04] MEDS: IBUPROFEN 600 MG PO PRN (17:12)
[2019-08-04] MEDS: Simvastatin 10 MG Tab PO SCH (19:11)
[2019-08-04] MEDS: buPROPion 100 MG Tab PO SCH (19:11)
[2019-08-04] MEDS: Levothyroxine Sodium 137 MCG TABLET PO SCH (19:12)
[2019-08-05] MEDS: NYSTATIN TOP SCH ×2 (07:49→19:21)
[2019-08-05] MEDS: Niacin 500 MG Tab PO SCH ×2 (07:50→17:46)
[2019-08-05] MEDS: Budesonide 0.5 MG/2 ML Neb Susp NEB SCH ×2 (07:50→19:46)
[2019-08-05] MEDS: Furosemide 20 MG Tab PO SCH (07:51)
[2019-08-05] MEDS: Albuterol/Ipratropium 3.0-0.5 MG/3 ML Neb Soln NEB SCH ×2 (07:51→19:20)
[2019-08-05] MEDS: BENZONATATE 200 MG PO SCH ×2 (07:51→19:20)
[2019-08-05] MEDS: Fludrocortisone 0.1 MG Tab PO SCH ×2 (07:51→19:20)
[2019-08-05] MEDS: Potassium Chloride 20 MEQ Tab.ER PO SCH ×3 (07:52→17:45)
[2019-08-05] MEDS: Citalopram 20 MG Tab PO SCH (07:52)
[2019-08-05] MEDS: Cyanocobalamin (Vitamin B12) 1,000 MCG Tab PO SCH (07:53)
[2019-08-05] MEDS: Cholecalciferol (Vitamin D3) 25 MCG Tab PO SCH (07:54)
[2019-08-05] MEDS: Levothyroxine Sodium 137 MCG TABLET PO SCH (19:20)
[2019-08-05] MEDS: buPROPion 100 MG Tab PO SCH (19:20)
[2019-08-05] MEDS: Simvastatin 10 MG Tab PO SCH (19:20)
[2019-08-06] MEDS: Furosemide 20 MG Tab PO SCH (07:27)
[2019-08-06] MEDS: Albuterol/Ipratropium 3.0-0.5 MG/3 ML Neb Soln NEB SCH ×2 (07:27→19:32)
[2019-08-06] MEDS: BENZONATATE 200 MG PO SCH ×2 (07:27→19:45)
[2019-08-06] MEDS: Citalopram 20 MG Tab PO SCH (07:27)
[2019-08-06] MEDS: Potassium Chloride 20 MEQ Tab.ER PO SCH ×3 (07:27→17:10)
[2019-08-06] MEDS: Fludrocortisone 0.1 MG Tab PO SCH ×2 (07:27→19:32)
[2019-08-06] MEDS: NYSTATIN TOP SCH ×2 (07:28→19:35)
[2019-08-06] MEDS: Cyanocobalamin (Vitamin B12) 1,000 MCG Tab PO SCH (07:28)
[2019-08-06] MEDS: Niacin 500 MG Tab PO SCH ×2 (07:28→17:10)
[2019-08-06] MEDS: Cholecalciferol (Vitamin D3) 25 MCG Tab PO SCH (07:29)
[2019-08-06] MEDS: IBUPROFEN 600 MG PO PRN ×2 (07:29→17:09)
[2019-08-06] MEDS: Budesonide 0.5 MG/2 ML Neb Susp NEB SCH ×2 (08:12→19:35)
[2019-08-06] MEDS: Levothyroxine Sodium 137 MCG TABLET PO SCH (19:32)
[2019-08-06] MEDS: Simvastatin 10 MG Tab PO SCH (19:36)
[2019-08-06] MEDS: buPROPion 100 MG Tab PO SCH (19:36)
[2019-08-07] MEDS: IBUPROFEN 600 MG PO PRN ×2 (07:31→17:15)
[2019-08-07] MEDS: Fludrocortisone 0.1 MG Tab PO SCH ×2 (07:31→19:43)
[2019-08-07] MEDS: Citalopram 20 MG Tab PO SCH (07:31)
[2019-08-07] MEDS: Albuterol/Ipratropium 3.0-0.5 MG/3 ML Neb Soln NEB SCH ×2 (07:31→19:42)
[2019-08-07] MEDS: Potassium Chloride 20 MEQ Tab.ER PO SCH ×3 (07:32→17:15)
[2019-08-07] MEDS: NYSTATIN TOP SCH ×2 (07:32→19:43)
[2019-08-07] MEDS: Furosemide 20 MG Tab PO SCH (07:32)
[2019-08-07] MEDS: Niacin 500 MG Tab PO SCH ×2 (07:32→17:14)
[2019-08-07] MEDS: Cholecalciferol (Vitamin D3) 25 MCG Tab PO SCH (07:33)
[2019-08-07] MEDS: Cyanocobalamin (Vitamin B12) 1,000 MCG Tab PO SCH (07:33)
[2019-08-07] MEDS: Acetaminophen 325 MG Tab PO PRN (11:19)
[2019-08-07] MEDS: buPROPion 100 MG Tab PO SCH (19:43)
[2019-08-07] MEDS: Levothyroxine Sodium 137 MCG TABLET PO SCH (19:43)
[2019-08-07] MEDS: Simvastatin 10 MG Tab PO SCH (19:44)
[2019-08-08] MEDS: IBUPROFEN 600 MG PO PRN ×2 (07:13→17:07)
[2019-08-08] MEDS: NYSTATIN TOP SCH ×2 (07:13→19:49)
[2019-08-08] MEDS: Citalopram 20 MG Tab PO SCH (07:14)
[2019-08-08] MEDS: Albuterol/Ipratropium 3.0-0.5 MG/3 ML Neb Soln NEB SCH ×2 (07:14→19:48)
[2019-08-08] MEDS: Niacin 500 MG Tab PO SCH ×2 (07:15→17:08)
[2019-08-08] MEDS: Potassium Chloride 20 MEQ Tab.ER PO SCH ×3 (07:15→17:07)
[2019-08-08] MEDS: Fludrocortisone 0.1 MG Tab PO SCH ×2 (07:15→19:48)
[2019-08-08] MEDS: Furosemide 20 MG Tab PO SCH (07:15)
[2019-08-08] MEDS: Cyanocobalamin (Vitamin B12) 1,000 MCG Tab PO SCH (07:16)
[2019-08-08] MEDS: Cholecalciferol (Vitamin D3) 25 MCG Tab PO SCH (07:16)
[2019-08-08] MEDS: Acetaminophen 325 MG Tab PO PRN (11:17)
[2019-08-08] MEDS: buPROPion 100 MG Tab PO SCH (19:48)
[2019-08-08] MEDS: Levothyroxine Sodium 137 MCG TABLET PO SCH (19:48)
[2019-08-08] MEDS: Simvastatin 10 MG Tab PO SCH (19:48)
[2019-08-09] MEDS: Albuterol/Ipratropium 3.0-0.5 MG/3 ML Neb Soln NEB SCH ×2 (07:35→19:31)
[2019-08-09] MEDS: Citalopram 20 MG Tab PO SCH (07:35)
[2019-08-09] MEDS: Potassium Chloride 20 MEQ Tab.ER PO SCH ×3 (07:35→17:20)
[2019-08-09] MEDS: IBUPROFEN 600 MG PO PRN ×2 (07:35→17:21)
[2019-08-09] MEDS: Fludrocortisone 0.1 MG Tab PO SCH ×2 (07:35→19:33)
[2019-08-09] MEDS: NYSTATIN TOP SCH (07:36)
[2019-08-09] MEDS: Furosemide 20 MG Tab PO SCH (07:36)
[2019-08-09] MEDS: Niacin 500 MG Tab PO SCH ×2 (07:36→17:20)
[2019-08-09] MEDS: Cyanocobalamin (Vitamin B12) 1,000 MCG Tab PO SCH (07:39)
[2019-08-09] MEDS: Cholecalciferol (Vitamin D3) 25 MCG Tab PO SCH (07:40)
[2019-08-09] MEDS: Acetaminophen 325 MG Tab PO PRN ×2 (11:13→19:32)
[2019-08-09] MEDS: buPROPion 100 MG Tab PO SCH (19:33)
[2019-08-09] MEDS: Simvastatin 10 MG Tab PO SCH (19:33)
[2019-08-09] MEDS: Levothyroxine Sodium 137 MCG TABLET PO SCH (19:33)
[2019-08-10] MEDS: Fludrocortisone 0.1 MG Tab PO SCH ×2 (07:45→19:04)
[2019-08-10] MEDS: Citalopram 20 MG Tab PO SCH (07:45)
[2019-08-10] MEDS: Potassium Chloride 20 MEQ Tab.ER PO SCH ×3 (07:45→17:39)
[2019-08-10] MEDS: Furosemide 20 MG Tab PO SCH (07:46)
[2019-08-10] MEDS: Albuterol/Ipratropium 3.0-0.5 MG/3 ML Neb Soln NEB SCH ×2 (07:46→19:03)
[2019-08-10] MEDS: Niacin 500 MG Tab PO SCH ×2 (07:46→17:39)
[2019-08-10] MEDS: Cholecalciferol (Vitamin D3) 25 MCG Tab PO SCH (07:47)
[2019-08-10] MEDS: Cyanocobalamin (Vitamin B12) 1,000 MCG Tab PO SCH (07:47)
[2019-08-10] MEDS: Acetaminophen 325 MG Tab PO PRN (19:03)
[2019-08-10] MEDS: Simvastatin 10 MG Tab PO SCH (19:04)
[2019-08-10] MEDS: Levothyroxine Sodium 137 MCG TABLET PO SCH (19:04)
[2019-08-10] MEDS: buPROPion 100 MG Tab PO SCH (19:04)
[2019-08-11] MEDS: Albuterol/Ipratropium 3.0-0.5 MG/3 ML Neb Soln NEB SCH ×2 (07:23→19:17)
[2019-08-11] MEDS: Furosemide 20 MG Tab PO SCH (07:25)
[2019-08-11] MEDS: Fludrocortisone 0.1 MG Tab PO SCH ×2 (07:25→19:17)
[2019-08-11] MEDS: Citalopram 20 MG Tab PO SCH (07:25)
[2019-08-11] MEDS: Potassium Chloride 20 MEQ Tab.ER PO SCH ×3 (07:25→17:32)
[2019-08-11] MEDS: Niacin 500 MG Tab PO SCH ×2 (07:26→17:32)
[2019-08-11] MEDS: Cyanocobalamin (Vitamin B12) 1,000 MCG Tab PO SCH (07:27)
[2019-08-11] MEDS: Cholecalciferol (Vitamin D3) 25 MCG Tab PO SCH (07:28)
[2019-08-11] MEDS: Acetaminophen 325 MG Tab PO PRN (07:43)
[2019-08-11] MEDS: buPROPion 100 MG Tab PO SCH (19:17)
[2019-08-11] MEDS: Levothyroxine Sodium 137 MCG TABLET PO SCH (19:17)
[2019-08-11] MEDS: Simvastatin 10 MG Tab PO SCH (19:17)
[2019-08-11] MEDS: IBUPROFEN 600 MG PO PRN (19:18)
[2019-08-12] MEDS: Acetaminophen 325 MG Tab PO PRN (03:35)
[2019-08-12] MEDS: Albuterol/Ipratropium 3.0-0.5 MG/3 ML Neb Soln NEB SCH ×2 (07:50→19:08)
[2019-08-12] MEDS: Citalopram 20 MG Tab PO SCH (07:50)
[2019-08-12] MEDS: Potassium Chloride 20 MEQ Tab.ER PO SCH ×3 (07:51→17:36)
[2019-08-12] MEDS: Niacin 500 MG Tab PO SCH ×2 (07:51→17:36)
[2019-08-12] MEDS: Fludrocortisone 0.1 MG Tab PO SCH ×2 (07:51→19:08)
[2019-08-12] MEDS: Cholecalciferol (Vitamin D3) 25 MCG Tab PO SCH (07:52)
[2019-08-12] MEDS: Cyanocobalamin (Vitamin B12) 1,000 MCG Tab PO SCH (07:52)
[2019-08-12] MEDS: Furosemide 20 MG Tab PO SCH (08:00)
[2019-08-12] MEDS: Simvastatin 10 MG Tab PO SCH (19:09)
[2019-08-12] MEDS: buPROPion 100 MG Tab PO SCH (19:09)
[2019-08-12] MEDS: Levothyroxine Sodium 137 MCG TABLET PO SCH (19:09)
[2019-08-12] MEDS: IBUPROFEN 600 MG PO PRN (19:10)
[2019-08-13] MEDS: Acetaminophen 325 MG Tab PO PRN (01:22)
[2019-08-13] MEDS: Potassium Chloride 20 MEQ Tab.ER PO SCH ×3 (07:57→17:43)
[2019-08-13] MEDS: Furosemide 20 MG Tab PO SCH (07:58)
[2019-08-13] MEDS: Citalopram 20 MG Tab PO SCH (07:58)
[2019-08-13] MEDS: Fludrocortisone 0.1 MG Tab PO SCH ×2 (07:58→19:22)
[2019-08-13] MEDS: Albuterol/Ipratropium 3.0-0.5 MG/3 ML Neb Soln NEB SCH ×2 (07:59→19:22)
[2019-08-13] MEDS: Niacin 500 MG Tab PO SCH ×2 (07:59→17:43)
[2019-08-13] MEDS: Cholecalciferol (Vitamin D3) 25 MCG Tab PO SCH (08:00)
[2019-08-13] MEDS: Cyanocobalamin (Vitamin B12) 1,000 MCG Tab PO SCH (08:00)
[2019-08-13] MEDS: Levothyroxine Sodium 137 MCG TABLET PO SCH (19:22)
[2019-08-13] MEDS: buPROPion 100 MG Tab PO SCH (19:23)
[2019-08-13] MEDS: Simvastatin 10 MG Tab PO SCH (19:23)
[2019-08-13] MEDS: IBUPROFEN 600 MG PO PRN (19:23)
[2019-08-14] MEDS: Potassium Chloride 20 MEQ Tab.ER PO SCH ×3 (07:51→17:09)
[2019-08-14] MEDS: Furosemide 20 MG Tab PO SCH (07:52)
[2019-08-14] MEDS: Fludrocortisone 0.1 MG Tab PO SCH ×2 (07:52→19:18)
[2019-08-14] MEDS: Citalopram 20 MG Tab PO SCH (07:52)
[2019-08-14] MEDS: Niacin 500 MG Tab PO SCH ×2 (07:53→17:09)
[2019-08-14] MEDS: Cholecalciferol (Vitamin D3) 25 MCG Tab PO SCH (07:53)
[2019-08-14] MEDS: Cyanocobalamin (Vitamin B12) 1,000 MCG Tab PO SCH (07:53)
[2019-08-14] MEDS: Albuterol/Ipratropium 3.0-0.5 MG/3 ML Neb Soln NEB SCH ×2 (07:53→19:19)
[2019-08-14] MEDS: Acetaminophen 325 MG Tab PO PRN ×2 (07:57→22:52)
[2019-08-14] MEDS: Simvastatin 10 MG Tab PO SCH (19:18)
[2019-08-14] MEDS: Levothyroxine Sodium 137 MCG TABLET PO SCH (19:18)
[2019-08-14] MEDS: buPROPion 100 MG Tab PO SCH (19:18)
[2019-08-15] MEDS: Fludrocortisone 0.1 MG Tab PO SCH ×2 (07:35→19:16)
[2019-08-15] MEDS: Furosemide 20 MG Tab PO SCH (07:35)
[2019-08-15] MEDS: Cholecalciferol (Vitamin D3) 25 MCG Tab PO SCH (07:36)
[2019-08-15] MEDS: Potassium Chloride 20 MEQ Tab.ER PO SCH ×3 (07:36→17:14)
[2019-08-15] MEDS: Citalopram 20 MG Tab PO SCH (07:36)
[2019-08-15] MEDS: Niacin 500 MG Tab PO SCH ×2 (07:37→17:14)
[2019-08-15] MEDS: Cyanocobalamin (Vitamin B12) 1,000 MCG Tab PO SCH (07:37)
[2019-08-15] MEDS: Albuterol/Ipratropium 3.0-0.5 MG/3 ML Neb Soln NEB SCH ×2 (07:37→19:17)
[2019-08-15] MEDS: Acetaminophen 325 MG Tab PO PRN ×2 (08:51→19:17)
[2019-08-15] MEDS: Simvastatin 10 MG Tab PO SCH (19:16)
[2019-08-15] MEDS: buPROPion 100 MG Tab PO SCH (19:16)
[2019-08-15] MEDS: Levothyroxine Sodium 137 MCG TABLET PO SCH (19:16)
[2019-08-16] MEDS: Albuterol/Ipratropium 3.0-0.5 MG/3 ML Neb Soln NEB SCH ×2 (07:33→19:13)
[2019-08-16] MEDS: IBUPROFEN 600 MG PO PRN ×2 (07:33→17:11)
[2019-08-16] MEDS: Furosemide 20 MG Tab PO SCH (07:34)
[2019-08-16] MEDS: Fludrocortisone 0.1 MG Tab PO SCH ×2 (07:34→19:12)
[2019-08-16] MEDS: Potassium Chloride 20 MEQ Tab.ER PO SCH ×3 (07:34→17:12)
[2019-08-16] MEDS: Niacin 500 MG Tab PO SCH ×2 (07:34→17:11)
[2019-08-16] MEDS: Citalopram 20 MG Tab PO SCH (07:34)
[2019-08-16] MEDS: Cholecalciferol (Vitamin D3) 25 MCG Tab PO SCH (07:35)
[2019-08-16] MEDS: Cyanocobalamin (Vitamin B12) 1,000 MCG Tab PO SCH (07:35)
[2019-08-16] MEDS: Acetaminophen 325 MG Tab PO PRN ×2 (11:23→23:39)
[2019-08-16] MEDS: Simvastatin 10 MG Tab PO SCH (19:12)
[2019-08-16] MEDS: Levothyroxine Sodium 137 MCG TABLET PO SCH (19:12)
[2019-08-16] MEDS: buPROPion 100 MG Tab PO SCH (19:12)
[2019-08-17] MEDS: Fludrocortisone 0.1 MG Tab PO SCH ×2 (07:49→19:24)
[2019-08-17] MEDS: Potassium Chloride 20 MEQ Tab.ER PO SCH ×3 (07:49→17:51)
[2019-08-17] MEDS: Citalopram 20 MG Tab PO SCH (07:49)
[2019-08-17] MEDS: IBUPROFEN 600 MG PO PRN (07:50)
[2019-08-17] MEDS: Furosemide 20 MG Tab PO SCH (07:50)
[2019-08-17] MEDS: Cyanocobalamin (Vitamin B12) 1,000 MCG Tab PO SCH (07:51)
[2019-08-17] MEDS: Albuterol/Ipratropium 3.0-0.5 MG/3 ML Neb Soln NEB SCH ×2 (07:51→19:23)
[2019-08-17] MEDS: Niacin 500 MG Tab PO SCH ×2 (07:51→17:51)
[2019-08-17] MEDS: Cholecalciferol (Vitamin D3) 25 MCG Tab PO SCH (07:51)
[2019-08-17] MEDS: Simvastatin 10 MG Tab PO SCH (19:24)
[2019-08-17] MEDS: buPROPion 100 MG Tab PO SCH (19:24)
[2019-08-17] MEDS: Levothyroxine Sodium 137 MCG TABLET PO SCH (19:24)
[2019-08-17] MEDS: Acetaminophen 325 MG Tab PO PRN (19:25)
[2019-08-18] MEDS: IBUPROFEN 600 MG PO PRN ×3 (00:48→17:11)
[2019-08-18] MEDS: Citalopram 20 MG Tab PO SCH (07:28)
[2019-08-18] MEDS: Potassium Chloride 20 MEQ Tab.ER PO SCH ×3 (07:28→17:12)
[2019-08-18] MEDS: Albuterol/Ipratropium 3.0-0.5 MG/3 ML Neb Soln NEB SCH ×2 (07:28→19:40)
[2019-08-18] MEDS: Fludrocortisone 0.1 MG Tab PO SCH ×2 (07:28→19:40)
[2019-08-18] MEDS: Niacin 500 MG Tab PO SCH ×2 (07:29→17:12)
[2019-08-18] MEDS: Cyanocobalamin (Vitamin B12) 1,000 MCG Tab PO SCH (07:29)
[2019-08-18] MEDS: Furosemide 20 MG Tab PO SCH (07:29)
[2019-08-18] MEDS: Cholecalciferol (Vitamin D3) 25 MCG Tab PO SCH (07:30)
[2019-08-18] MEDS: Acetaminophen 325 MG Tab PO PRN ×2 (11:25→19:41)
[2019-08-18] MEDS: buPROPion 100 MG Tab PO SCH (19:40)
[2019-08-18] MEDS: Levothyroxine Sodium 137 MCG TABLET PO SCH (19:40)
[2019-08-18] MEDS: Simvastatin 10 MG Tab PO SCH (19:41)
[2019-08-19] MEDS: IBUPROFEN 600 MG PO PRN ×2 (07:13→17:04)
[2019-08-19] MEDS: Potassium Chloride 20 MEQ Tab.ER PO SCH ×3 (07:13→17:04)
[2019-08-19] MEDS: Albuterol/Ipratropium 3.0-0.5 MG/3 ML Neb Soln NEB SCH ×2 (07:13→19:21)
[2019-08-19] MEDS: Fludrocortisone 0.1 MG Tab PO SCH ×2 (07:13→19:22)
[2019-08-19] MEDS: Citalopram 20 MG Tab PO SCH (07:13)
[2019-08-19] MEDS: Cyanocobalamin (Vitamin B12) 1,000 MCG Tab PO SCH (07:14)
[2019-08-19] MEDS: Furosemide 20 MG Tab PO SCH (07:14)
[2019-08-19] MEDS: Cholecalciferol (Vitamin D3) 25 MCG Tab PO SCH (07:14)
[2019-08-19] MEDS: Niacin 500 MG Tab PO SCH ×2 (07:14→17:05)
[2019-08-19] MEDS: Acetaminophen 325 MG Tab PO PRN (11:15)
[2019-08-19] MEDS: buPROPion 100 MG Tab PO SCH (19:22)
[2019-08-19] MEDS: Simvastatin 10 MG Tab PO SCH (19:22)
[2019-08-19] MEDS: Levothyroxine Sodium 137 MCG TABLET PO SCH (19:22)
[2019-08-20] MEDS: Acetaminophen 325 MG Tab PO PRN ×2 (01:47→19:07)
[2019-08-20] MEDS: Potassium Chloride 20 MEQ Tab.ER PO SCH ×3 (07:55→17:39)
[2019-08-20] MEDS: Furosemide 20 MG Tab PO SCH (07:55)
[2019-08-20] MEDS: Fludrocortisone 0.1 MG Tab PO SCH ×2 (07:55→19:05)
[2019-08-20] MEDS: Cyanocobalamin (Vitamin B12) 1,000 MCG Tab PO SCH (07:56)
[2019-08-20] MEDS: Citalopram 20 MG Tab PO SCH (07:56)
[2019-08-20] MEDS: Cholecalciferol (Vitamin D3) 25 MCG Tab PO SCH (07:56)
[2019-08-20] MEDS: Niacin 500 MG Tab PO SCH ×2 (07:57→17:39)
[2019-08-20] MEDS: Albuterol/Ipratropium 3.0-0.5 MG/3 ML Neb Soln NEB SCH ×2 (07:57→19:01)
[2019-08-20] MEDS: Levothyroxine Sodium 137 MCG TABLET PO SCH (19:05)
[2019-08-20] MEDS: buPROPion 100 MG Tab PO SCH (19:06)
[2019-08-20] MEDS: Simvastatin 10 MG Tab PO SCH (19:06)
[2019-08-21] MEDS: Acetaminophen 325 MG Tab PO PRN ×3 (01:08→23:58)
[2019-08-21] MEDS: Albuterol/Ipratropium 3.0-0.5 MG/3 ML Neb Soln NEB SCH ×2 (07:54→19:26)
[2019-08-21] MEDS: Potassium Chloride 20 MEQ Tab.ER PO SCH ×3 (07:54→17:41)
[2019-08-21] MEDS: Fludrocortisone 0.1 MG Tab PO SCH ×2 (07:54→19:27)
[2019-08-21] MEDS: Niacin 500 MG Tab PO SCH ×2 (07:54→17:41)
[2019-08-21] MEDS: Furosemide 20 MG Tab PO SCH (07:54)
[2019-08-21] MEDS: Citalopram 20 MG Tab PO SCH (07:54)
[2019-08-21] MEDS: Cholecalciferol (Vitamin D3) 25 MCG Tab PO SCH (07:55)
[2019-08-21] MEDS: IBUPROFEN 600 MG PO PRN (07:55)
[2019-08-21] MEDS: Cyanocobalamin (Vitamin B12) 1,000 MCG Tab PO SCH (07:55)
[2019-08-21] MEDS: Simvastatin 10 MG Tab PO SCH (19:29)
[2019-08-21] MEDS: Levothyroxine Sodium 137 MCG TABLET PO SCH (19:29)
[2019-08-21] MEDS: buPROPion 100 MG Tab PO SCH (19:29)
[2019-08-22] MEDS: Fludrocortisone 0.1 MG Tab PO SCH ×2 (08:08→19:10)
[2019-08-22] MEDS: Citalopram 20 MG Tab PO SCH (08:09)
[2019-08-22] MEDS: Cyanocobalamin (Vitamin B12) 1,000 MCG Tab PO SCH (08:09)
[2019-08-22] MEDS: Furosemide 20 MG Tab PO SCH (08:09)
[2019-08-22] MEDS: Niacin 500 MG Tab PO SCH ×2 (08:09→17:10)
[2019-08-22] MEDS: Cholecalciferol (Vitamin D3) 25 MCG Tab PO SCH (08:09)
[2019-08-22] MEDS: Albuterol/Ipratropium 3.0-0.5 MG/3 ML Neb Soln NEB SCH ×2 (08:09→19:09)
[2019-08-22] MEDS: Potassium Chloride 20 MEQ Tab.ER PO SCH ×3 (08:09→17:10)
[2019-08-22] MEDS: Acetaminophen 325 MG Tab PO PRN (19:09)
[2019-08-22] MEDS: buPROPion 100 MG Tab PO SCH (19:10)
[2019-08-22] MEDS: Levothyroxine Sodium 137 MCG TABLET PO SCH (19:10)
[2019-08-22] MEDS: Simvastatin 10 MG Tab PO SCH (19:10)
[2019-08-23] MEDS: Albuterol/Ipratropium 3.0-0.5 MG/3 ML Neb Soln NEB SCH ×2 (07:30→19:09)
[2019-08-23] MEDS: Potassium Chloride 20 MEQ Tab.ER PO SCH ×3 (07:30→17:10)
[2019-08-23] MEDS: Citalopram 20 MG Tab PO SCH (07:30)
[2019-08-23] MEDS: Fludrocortisone 0.1 MG Tab PO SCH ×2 (07:30→19:10)
[2019-08-23] MEDS: Furosemide 20 MG Tab PO SCH (07:31)
[2019-08-23] MEDS: Cyanocobalamin (Vitamin B12) 1,000 MCG Tab PO SCH (07:31)
[2019-08-23] MEDS: Cholecalciferol (Vitamin D3) 25 MCG Tab PO SCH (07:31)
[2019-08-23] MEDS: Niacin 500 MG Tab PO SCH ×2 (07:31→17:10)
[2019-08-23] MEDS: IBUPROFEN 600 MG PO PRN (07:32)
[2019-08-23] MEDS: Acetaminophen 325 MG Tab PO PRN ×2 (11:23→19:10)
[2019-08-23] MEDS: Simvastatin 10 MG Tab PO SCH (19:10)
[2019-08-23] MEDS: buPROPion 100 MG Tab PO SCH (19:10)
[2019-08-23] MEDS: Levothyroxine Sodium 137 MCG TABLET PO SCH (19:10)
[2019-08-24] MEDS: Furosemide 20 MG Tab PO SCH (08:15)
[2019-08-24] MEDS: Potassium Chloride 20 MEQ Tab.ER PO SCH ×3 (08:15→17:38)
[2019-08-24] MEDS: Fludrocortisone 0.1 MG Tab PO SCH ×2 (08:15→19:17)
[2019-08-24] MEDS: Citalopram 20 MG Tab PO SCH (08:15)
[2019-08-24] MEDS: Niacin 500 MG Tab PO SCH ×2 (08:16→17:39)
[2019-08-24] MEDS: Albuterol/Ipratropium 3.0-0.5 MG/3 ML Neb Soln NEB SCH ×2 (08:16→19:16)
[2019-08-24] MEDS: Cyanocobalamin (Vitamin B12) 1,000 MCG Tab PO SCH (08:16)
[2019-08-24] MEDS: Cholecalciferol (Vitamin D3) 25 MCG Tab PO SCH (08:17)
[2019-08-24] MEDS: Acetaminophen 325 MG Tab PO PRN ×2 (08:25→18:18)
[2019-08-24] MEDS: Simvastatin 10 MG Tab PO SCH (19:17)
[2019-08-24] MEDS: buPROPion 100 MG Tab PO SCH (19:17)
[2019-08-24] MEDS: Levothyroxine Sodium 137 MCG TABLET PO SCH (19:17)
[2019-08-25] MEDS: Furosemide 20 MG Tab PO SCH (07:57)
[2019-08-25] MEDS: Fludrocortisone 0.1 MG Tab PO SCH ×2 (07:58→19:27)
[2019-08-25] MEDS: Albuterol/Ipratropium 3.0-0.5 MG/3 ML Neb Soln NEB SCH ×2 (07:58→19:27)
[2019-08-25] MEDS: Citalopram 20 MG Tab PO SCH (07:58)
[2019-08-25] MEDS: Potassium Chloride 20 MEQ Tab.ER PO SCH ×3 (07:58→17:15)
[2019-08-25] MEDS: Cholecalciferol (Vitamin D3) 25 MCG Tab PO SCH (07:58)
[2019-08-25] MEDS: Cyanocobalamin (Vitamin B12) 1,000 MCG Tab PO SCH (07:59)
[2019-08-25] MEDS: Niacin 500 MG Tab PO SCH ×2 (07:59→17:15)
[2019-08-25] MEDS: Acetaminophen 325 MG Tab PO PRN ×2 (09:02→18:16)
[2019-08-25] MEDS: Levothyroxine Sodium 137 MCG TABLET PO SCH (19:27)
[2019-08-25] MEDS: Simvastatin 10 MG Tab PO SCH (19:28)
[2019-08-25] MEDS: buPROPion 100 MG Tab PO SCH (19:28)
[2019-08-26 07:43] LABS: HEMOGLOBIN A1C 5.4 % (4.3-5.7)
[2019-08-26] MEDS: Albuterol/Ipratropium 3.0-0.5 MG/3 ML Neb Soln NEB SCH ×2 (08:01→19:20)
[2019-08-26] MEDS: Potassium Chloride 20 MEQ Tab.ER PO SCH ×3 (08:01→17:08)
[2019-08-26] MEDS: Citalopram 20 MG Tab PO SCH (08:02)
[2019-08-26] MEDS: Fludrocortisone 0.1 MG Tab PO SCH ×2 (08:02→19:20)
[2019-08-26] MEDS: Furosemide 20 MG Tab PO SCH (08:02)
[2019-08-26] MEDS: Niacin 500 MG Tab PO SCH ×2 (08:02→17:08)
[2019-08-26] MEDS: Cyanocobalamin (Vitamin B12) 1,000 MCG Tab PO SCH (08:03)
[2019-08-26] MEDS: Cholecalciferol (Vitamin D3) 25 MCG Tab PO SCH (08:03)
[2019-08-26 08:11] LABS: CHLORIDE,CL 110 mmol/L (98-107); SODIUM,NA 145 mmol/L (136-145)
--- NOTE | 2019-08-26 08:34 | PCM.HP.2 ---
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 Problem Details: Lipid Panel in April 2019 showed mild persistent hypertriglyceridemia. Previous history of severe dyslipidemia with aggressive medical therapy at this time. Dietary compliance once again strongly encouraged. No change in medical therapy for now with previous history of CPK elevation. (8) Hypothyroidism SNOMED Code(s): 57972839 ICD Code: E03.9 - HYPOTHYROIDISM, UNSPECIFIED Status: Chronic Priority: Medium Current Visit: Yes Problem Details: TSH normal in April 2019. No other thyroid type symptoms. (9) Mixed anxiety and depressive disorder SNOMED Code(s): 985205092 ICD Code: F41.8 - OTHER SPECIFIED ANXIETY DISORDERS Status: Chronic Priority: Medium Current Visit: Yes Problem Details: Stable by history. Patient is still relatively active with physical therapy, however has decreased her social activities recently per nursing history. Continue to observe closely by nursing staff with no significant depression at this time with patient often alone in her room. (10) Orthostatic hypotension SNOMED Code(s): 38885843 ICD Code: I95.1 - ORTHOSTATIC HYPOTENSION Status: Chronic Priority: Medium Current Visit: Yes Problem Details: No recent falls or injuries. Previous problems with recurrent falls including right ankle fracture on . The patient and nursing staff are continuing strict compliance with previously ordered fall precautions, walker use, etc. Continue activity restrictions as per physical therapy, and occupational therapy. Continue current Florinef with otherwise relatively stable decreased systolic blood pressures. No change in therapy. (11) Tardive dyskinesia SNOMED Code(s): 428198167 ICD Code: G24.01 - DRUG INDUCED SUBACUTE DYSKINESIA Status: Chronic Priority: Medium Current Visit: Yes Problem Details: Stable by history. 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 Neurological status is otherwise stable.. Note that patient does have complete dentures uppers and lowers, which does tend to aggravate her problem. No significant clinical relevance at this time with no change in medical therapy for now. (12) Hypoalbuminemia SNOMED Code(s): 355382689 ICD Code: E88.09 - OTH DISORDERS OF PLASMA-PROTEIN METABOLISM, NEC Status: Chronic Priority: Medium Current Visit: Yes Problem Details: Glucerna high -protein has been discontinued per recommendations from dietitian secondary to persistent weight gain. Continue high-protein diet as above. Observe for now. (13) Macrocytosis SNOMED Code(s): 035895864 ICD Code: D75.89 - OTHER SPECIFIED DISEASES OF BLOOD AND BLOOD-FORMING ORGANS Status: Chronic Priority: High Current Visit: Yes Onset Date: 05/08 Problem Details: No anemia with persistent macrocytosis however normal vitamin B 12 and folic acid levels previously Mild intermittent thrombocytopenia , which is currently nonproblematic. Continue routine blood work and vitamin B- 12 supplementation. (14) Osteoarthritis SNOMED Code(s): 828941858 ICD Code: M19.90 - UNSPECIFIED OSTEOARTHRITIS, UNSPECIFIED SITE Status: Chronic Priority: Medium Current Visit: Yes Problem Details: No complaints today with previous intermittent mild generalized arthralgias, however nonproblematic at this time with the patient nonsymptomatic despite discontinuation of Ultram. PT in effect as above. Note status post bilateral ankle ORIF secondary to fractures. Previous recurrent falls in February 2019 have improved with no recent significant falls or injuries. (15) Peptic reflux disease SNOMED Code(s): 662950070 ICD Code: K21.9 - GASTRO-ESOPHAGEAL REFLUX DISEASE WITHOUT ESOPHAGITIS Status: Chronic Priority: Medium Current Visit: Yes Problem Details: Stable by history Problem List Initiated/Reviewed/Updated: Yes Orders Last 24hrs: Active Orders 24 hr Category Date Time Status EKG Documentation Completion [RC] ASDIRECTED Care 08/26/19 05:11 Active Notify Provider Consults [RC] ASDIRECTED Care 08/26/19 08:13 Active Consult to Physician [CONS] Routine Cons 08/26/19 08:10 Active Abdomen Series w Chest 1V [CR] Routine Exams 08/26/19 05:11 Ordered EKG 12 Lead [EK] Routine Ther 08/26/19 05:11 Ordered Medication Orders Acetaminophen (Tylenol) 650 mg PO Q4H PRN PRN Reason: Pain Last Admin: 08/25/19 18:16 Dose: 650 mg Admin: 08/25/19 09:02 Dose: 650 mg Admin: 08/24/19 18:18 Dose: 650 mg Admin: 08/24/19 08:25 Dose: 650 mg Admin: 08/23/19 19:10 Dose: 650 mg Admin: 08/23/19 11:23 Dose: 650 mg Admin: 08/22/19 19:09 Dose: 650 mg Admin: 08/21/19 23:58 Dose: 650 mg Admin: 08/21/19 19:27 Dose: 650 mg Admin: 08/21/19 01:08 Dose: 650 mg Admin: 08/20/19 19:07 Dose: 650 mg Admin: 08/20/19 01:47 Dose: 650 mg Admin: 08/19/19 11:15 Dose: 650 mg Admin: 08/18/19 19:41 Dose: 650 mg Admin: 08/18/19 11:25 Dose: 650 mg Admin: 08/17/19 19:25 Dose: 650 mg Admin: 08/16/19 23:39 Dose: 650 mg Admin: 08/16/19 11:23 Dose: 650 mg Admin: 08/15/19 19:17 Dose: 650 mg Admin: 08/15/19 08:51 Dose: 650 mg Admin: 08/14/19 22:52 Dose: 650 mg Admin: 08/14/19 07:57 Dose: 650 mg Admin: 08/13/19 01:22 Dose: 650 mg Admin: 08/12/19 03:35 Dose: 650 mg Admin: 08/11/19 07:43 Dose: 650 mg Admin: 08/10/19 19:03 Dose: 650 mg Admin: 08/09/19 19:32 Dose: 650 mg Admin: 08/09/19 11:13 Dose: 650 mg Admin: 08/08/19 11:17 Dose: 650 mg Admin: 08/07/19 11:19 Dose: 650 mg Admin: 08/04/19 07:55 Dose: 650 mg Admin: 08/03/19 00:16 Dose: 650 mg Admin: 08/01/19 19:10 Dose: 650 mg Admin: 07/31/19 19:43 Dose: 650 mg Admin: 07/30/19 19:23 Dose: 650 mg Admin: 07/29/19 13:29 Dose: 650 mg Admin: 07/28/19 13:00 Dose: 650 mg Admin: 07/27/19 13:07 Dose: 650 mg Admin: 07/26/19 18:10 Dose: 650 mg Admin: 07/26/19 03:41 Dose: 650 mg Admin: 07/24/19 23:29 Dose: 650 mg Admin: 07/23/19 19:32 Dose: 650 mg Admin: 07/22/19 02:08 Dose: 650 mg Admin: 07/21/19 18:26 Dose: 650 mg Admin: 07/19/19 19:17 Dose: 650 mg Admin: 07/19/19 13:10 Dose: 650 mg Admin: 07/19/19 03:37 Dose: 650 mg Admin: 07/18/19 08:10 Dose: 650 mg Admin: 07/17/19 10:04 Dose: 650 mg Admin: 07/17/19 04:46 Dose: 650 mg Admin: 07/16/19 10:09 Dose: 650 mg Admin: 07/16/19 01:42 Dose: 650 mg Admin: 07/15/19 19:14 Dose: 650 mg Admin: 07/15/19 14:21 Dose: 650 mg Admin: 07/15/19 02:15 Dose: 650 mg Admin: 07/14/19 19:20 Dose: 650 mg Admin: 07/14/19 02:58 Dose: 650 mg Admin: 07/13/19 03:16 Dose: 650 mg Admin: 07/12/19 13:03 Dose: 650 mg Admin: 07/11/19 19:25 Dose: 650 mg Admin: 07/10/19 19:26 Dose: 650 mg Admin: 07/09/19 19:16 Dose: 650 mg Admin: 07/09/19 13:11 Dose: 650 mg Admin: 07/08/19 19:27 Dose: 650 mg Admin: 07/08/19 08:51 Dose: 650 mg Admin: 07/08/19 00:19 Dose: 650 mg Admin: 07/07/19 08:04 Dose: 650 mg Admin: 07/06/19 22:48 Dose: 650 mg Admin: 07/06/19 07:57 Dose: 650 mg Admin: 07/06/19 01:05 Dose: 650 mg Admin: 07/05/19 07:52 Dose: 650 mg Admin: 07/04/19 09:02 Dose: 650 mg Admin: 07/03/19 19:12 Dose: 650 mg Admin: 07/02/19 23:37 Dose: 650 mg Admin: 07/02/19 08:29 Dose: 650 mg Admin: 07/01/19 19:37 Dose: 650 mg Admin: 06/30/19 19:13 Dose: 650 mg Admin: 06/29/19 19:15 Dose: 650 mg Admin: 06/29/19 07:50 Dose: 650 mg Admin: 06/28/19 19:15 Dose: 650 mg Admin: 06/27/19 21:56 Dose: 650 mg Admin: 06/27/19 17:58 Dose: 650 mg Admin: 06/26/19 04:39 Dose: 650 mg Admin: 06/25/19 08:31 Dose: 650 mg Admin: 06/24/19 17:22 Dose: 650 mg Admin: 06/24/19 07:47 Dose: 650 mg Admin: 06/23/19 19:12 Dose: 650 mg Admin: 06/22/19 19:20 Dose: 650 mg Admin: 06/21/19 11:16 Dose: 650 mg Admin: 06/20/19 19:25 Dose: 650 mg Admin: 06/20/19 11:11 Dose: 650 mg Admin: 06/20/19 01:46 Dose: 650 mg Admin: 06/19/19 19:14 Dose: 650 mg Admin: 06/19/19 11:11 Dose: 650 mg Admin: 06/18/19 19:23 Dose: 650 mg Admin: 06/18/19 08:10 Dose: 650 mg Admin: 06/16/19 01:42 Dose: 650 mg Admin: 06/13/19 19:13 Dose: 650 mg Admin: 06/13/19 00:57 Dose: 650 mg Admin: 06/12/19 09:58 Dose: 650 mg Admin: 06/11/19 19:29 Dose: 650 mg Admin: 06/10/19 19:14 Dose: 650 mg Admin: 06/09/19 19:35 Dose: 650 mg Admin: 06/08/19 19:15 Dose: 650 mg Admin: 06/07/19 14:37 Dose: 650 mg Admin: 06/01/19 19:28 Dose: 650 mg Admin: 05/25/19 17:54 Dose: 650 mg Albuterol/Ipratropium (Duoneb 3.0-0.5 Mg/3 Ml) 3 ml NEB BIDRT MIESHA Last Admin: 08/26/19 08:01 Dose: 3 ml Admin: 08/25/19 19:27 Dose: 3 ml Admin: 08/25/19 07:58 Dose: 3 ml Admin: 08/24/19 19:16 Dose: 3 ml Admin: 08/24/19 08:16 Dose: 3 ml Admin: 08/23/19 19:09 Dose: 3 ml Admin: 08/23/19 07:30 Dose: 3 ml Admin: 08/22/19 19:09 Dose: 3 ml Admin: 08/22/19 08:09 Dose: 3 ml Admin: 08/21/19 19:26 Dose: 3 ml Admin: 08/21/19 07:54 Dose: 3 ml Admin: 08/20/19 19:01 Dose: 3 ml Admin: 08/20/19 07:57 Dose: 3 ml Admin: 08/19/19 19:21 Dose: 3 ml Admin: 08/19/19 07:13 Dose: 3 ml Admin: 08/18/19 19:40 Dose: 3 ml Admin: 08/18/19 07:28 Dose: 3 ml Admin: 08/17/19 19:23 Dose: 3 ml Admin: 08/17/19 07:51 Dose: 3 ml Admin: 08/16/19 19:13 Dose: 3 ml Admin: 08/16/19 07:33 Dose: 3 ml Admin: 08/15/19 19:17 Dose: 3 ml Admin: 08/15/19 07:37 Dose: 3 ml Admin: 08/14/19 19:19 Dose: 3 ml Admin: 08/14/19 07:53 Dose: 3 ml Admin: 08/13/19 19:22 Dose: 3 ml Admin: 08/13/19 07:59 Dose: 3 ml Admin: 08/12/19 19:08 Dose: 3 ml Admin: 08/12/19 07:50 Dose: 3 ml Admin: 08/11/19 19:17 Dose: 3 ml Admin: 08/11/19 07:23 Dose: 3 ml Admin: 08/10/19 19:03 Dose: 3 ml Admin: 08/10/19 07:46 Dose: 3 ml Admin: 08/09/19 19:31 Dose: 3 ml Admin: 08/09/19 07:35 Dose: 3 ml Admin: 08/08/19 19:48 Dose: 3 ml Admin: 08/08/19 07:14 Dose: 3 ml Admin: 08/07/19 19:42 Dose: 3 ml Admin: 08/07/19 07:31 Dose: 3 ml Admin: 08/06/19 19:32 Dose: 3 ml Admin: 08/06/19 07:27 Dose: 3 ml Admin: 08/05/19 19:20 Dose: 3 ml Admin: 08/05/19 07:51 Dose: 3 ml Admin: 08/04/19 19:11 Dose: 3 ml Admin: 08/04/19 07:50 Dose: 3 ml Admin: 08/03/19 19:37 Dose: 3 ml Admin: 08/03/19 08:02 Dose: 3 ml Admin: 08/02/19 19:11 Dose: 3 ml Admin: 08/02/19 14:36 Dose: Admin: 08/01/19 19:04 Dose: 3 ml Admin: 08/01/19 07:53 Dose: 3 ml Admin: 07/31/19 19:29 Dose: 3 ml Admin: 07/31/19 07:38 Dose: 3 ml Admin: 07/30/19 19:28 Dose: 3 ml Admin: 07/30/19 08:03 Dose: 3 ml Admin: 07/29/19 19:29 Dose: 3 ml Admin: 07/29/19 07:16 Dose: 3 ml Admin: 07/28/19 19:14 Dose: 3 ml Admin: 07/28/19 07:34 Dose: 3 ml Admin: 07/27/19 19:24 Dose: 3 ml Admin: 07/27/19 07:39 Dose: 3 ml Admin: 07/26/19 19:35 Dose: 3 ml Admin: 07/26/19 07:59 Dose: 3 ml Admin: 07/25/19 19:48 Dose: 3 ml Admin: 07/25/19 07:52 Dose: 3 ml Admin: 07/24/19 19:27 Dose: 3 ml Admin: 07/24/19 07:32 Dose: 3 ml Admin: 07/23/19 19:33 Dose: 3 ml Admin: 07/23/19 08:19 Dose: 3 ml Admin: 07/22/19 19:26 Dose: 3 ml Admin: 07/22/19 08:09 Dose: 3 ml Admin: 07/21/19 19:32 Dose: 3 ml Admin: 07/21/19 08:15 Dose: 3 ml Admin: 07/20/19 19:17 Dose: 3 ml Admin: 07/20/19 07:57 Dose: 3 ml Admin: 07/19/19 19:16 Dose: 3 ml Admin: 07/19/19 07:31 Dose: 3 ml Admin: 07/18/19 19:36 Dose: 3 ml Admin: 07/18/19 07:32 Dose: 3 ml Admin: 07/17/19 19:16 Dose: 3 ml Admin: 07/17/19 07:30 Dose: 3 ml Admin: 07/16/19 19:39 Dose: 3 ml Admin: 07/16/19 07:33 Dose: 3 ml Admin: 07/15/19 19:10 Dose: 3 ml Admin: 07/15/19 08:04 Dose: 3 ml Admin: 07/14/19 19:21 Dose: 3 ml Admin: 07/14/19 08:00 Dose: 3 ml Admin: 07/13/19 19:23 Dose: 3 ml Admin: 07/13/19 08:00 Dose: 3 ml Admin: 07/12/19 19:24 Dose: 3 ml Admin: 07/12/19 07:27 Dose: 3 ml Admin: 07/11/19 19:24 Dose: 3 ml Admin: 07/11/19 07:52 Dose: 3 ml Admin: 07/10/19 19:24 Dose: 3 ml Admin: 07/10/19 08:04 Dose: 3 ml Admin: 07/09/19 19:15 Dose: 3 ml Admin: 07/09/19 07:21 Dose: 3 ml Admin: 07/08/19 19:25 Dose: 3 ml Admin: 07/08/19 07:24 Dose: 3 ml Admin: 07/07/19 19:16 Dose: 3 ml Admin: 07/07/19 08:06 Dose: 3 ml Admin: 07/06/19 19:25 Dose: 3 ml Admin: 07/06/19 07:55 Dose: 3 ml Admin: 07/05/19 19:52 Dose: 3 ml Admin: 07/05/19 07:45 Dose: 3 ml Admin: 07/04/19 19:24 Dose: 3 ml Admin: 07/04/19 07:27 Dose: 3 ml Admin: 07/03/19 19:16 Dose: 3 ml Admin: 07/03/19 07:48 Dose: 3 ml Admin: 07/02/19 19:19 Dose: 3 ml Admin: 07/02/19 08:25 Dose: 3 ml Admin: 07/01/19 19:18 Dose: 3 ml Admin: 07/01/19 08:24 Dose: 3 ml Admin: 06/30/19 19:11 Dose: 3 ml Admin: 06/30/19 08:09 Dose: 3 ml Admin: 06/29/19 19:16 Dose: 3 ml Admin: 06/29/19 07:48 Dose: 3 ml Admin: 06/28/19 19:06 Dose: 3 ml Admin: 06/28/19 07:52 Dose: 3 ml Admin: 06/27/19 19:08 Dose: 3 ml Admin: 06/27/19 07:53 Dose: 3 ml Admin: 06/26/19 19:05 Dose: 3 ml Admin: 06/26/19 08:01 Dose: 3 ml Admin: 06/25/19 19:24 Dose: 3 ml Admin: 06/25/19 08:12 Dose: 3 ml Admin: 06/24/19 19:10 Dose: 3 ml Admin: 06/24/19 07:44 Dose: 3 ml Admin: 06/23/19 19:08 Dose: 3 ml Admin: 06/23/19 08:09 Dose: 3 ml Admin: 06/22/19 19:17 Dose: 3 ml Admin: 06/22/19 07:33 Dose: 3 ml Admin: 06/21/19 19:18 Dose: 3 ml Admin: 06/21/19 07:20 Dose: 3 ml Admin: 06/20/19 19:20 Dose: 3 ml Admin: 06/20/19 07:17 Dose: 3 ml Admin: 06/19/19 19:12 Dose: 3 ml Admin: 06/19/19 07:23 Dose: 3 ml Admin: 06/18/19 19:16 Dose: 3 ml Admin: 06/18/19 08:05 Dose: 3 ml Admin: 06/17/19 19:14 Dose: 3 ml Admin: 06/17/19 07:51 Dose: 3 ml Admin: 06/16/19 19:10 Dose: 3 ml Admin: 06/16/19 07:48 Dose: 3 ml Admin: 06/15/19 19:42 Dose: 3 ml Admin: 06/15/19 07:18 Dose: 3 ml Admin: 06/14/19 19:17 Dose: 3 ml Admin: 06/14/19 08:32 Dose: 3 ml Admin: 06/13/19 19:18 Dose: 3 ml Admin: 06/13/19 08:22 Dose: 3 ml Admin: 06/12/19 19:23 Dose: 3 ml Admin: 06/12/19 08:57 Dose: 3 ml Admin: 06/11/19 19:30 Dose: 3 ml Admin: 06/11/19 08:33 Dose: 3 ml Admin: 06/10/19 19:13 Dose: 3 ml Admin: 06/10/19 07:56 Dose: 3 ml Admin: 06/09/19 19:31 Dose: 3 ml Admin: 06/09/19 08:03 Dose: 3 ml Admin: 06/08/19 19:12 Dose: 3 ml Admin: 06/08/19 07:13 Dose: 3 ml Admin: 06/07/19 19:12 Dose: 3 ml Admin: 06/07/19 07:25 Dose: 3 ml Admin: 06/06/19 19:17 Dose: 3 ml Admin: 06/06/19 07:22 Dose: 3 ml Admin: 06/05/19 19:22 Dose: 3 ml Admin: 06/05/19 07:25 Dose: 3 ml Admin: 06/04/19 19:21 Dose: 3 ml Admin: 06/04/19 08:13 Dose: 3 ml Admin: 06/03/19 19:19 Dose: 3 ml Admin: 06/03/19 08:27 Dose: 3 ml Admin: 06/02/19 19:57 Dose: 3 ml Admin: 06/02/19 07:16 Dose: 3 ml Admin: 06/01/19 19:23 Dose: 3 ml Admin: 06/01/19 08:32 Dose: 3 ml Admin: 05/31/19 20:01 Dose: 3 ml Admin: 05/31/19 07:41 Dose: 3 ml Admin: 05/30/19 19:15 Dose: 3 ml Admin: 05/30/19 08:06 Dose: 3 ml Admin: 05/29/19 19:07 Dose: 3 ml Admin: 05/29/19 08:06 Dose: 3 ml Admin: 05/28/19 19:16 Dose: 3 ml Admin: 05/28/19 07:24 Dose: 3 ml Admin: 05/27/19 19:20 Dose: 3 ml Admin: 05/27/19 08:09 Dose: 3 ml Admin: 05/26/19 19:49 Dose: 3 ml Admin: 05/26/19 08:24 Dose: 3 ml Admin: 05/25/19 19:10 Dose: 3 ml Admin: 05/25/19 08:27 Dose: 3 ml Admin: 05/24/19 19:29 Dose: 3 ml Albuterol/Ipratropium (Duoneb 3.0-0.5 Mg/3 Ml) 3 ml NEB Q4HRRT PRN PRN Reason: Dyspnea Last Admin: 07/23/19 13:16 Dose: 3 ml Admin: 05/26/19 08:24 Dose: 3 ml Bupropion HCl (Wellbutrin) 150 mg PO BEDTIME MIESHA Last Admin: 08/25/19 19:28 Dose: 150 mg Admin: 08/24/19 19:17 Dose: 150 mg Admin: 08/23/19 19:10 Dose: 150 mg Admin: 08/22/19 19:10 Dose: 150 mg Admin: 08/21/19 19:29 Dose: 150 mg Admin: 08/20/19 19:06 Dose: 150 mg Admin: 08/19/19 19:22 Dose: 150 mg Admin: 08/18/19 19:40 Dose: 150 mg Admin: 08/17/19 19:24 Dose: 150 mg Admin: 08/16/19 19:12 Dose: 150 mg Admin: 08/15/19 19:16 Dose: 150 mg Admin: 08/14/19 19:18 Dose: 150 mg Admin: 08/13/19 19:23 Dose: 150 mg Admin: 08/12/19 19:09 Dose: 150 mg Admin: 08/11/19 19:17 Dose: 150 mg Admin: 08/10/19 19:04 Dose: 150 mg Admin: 08/09/19 19:33 Dose: 150 mg Admin: 08/08/19 19:48 Dose: 150 mg Admin: 08/07/19 19:43 Dose: 150 mg Admin: 08/06/19 19:36 Dose: 150 mg Admin: 08/05/19 19:20 Dose: 150 mg Admin: 08/04/19 19:11 Dose: 150 mg Admin: 08/03/19 19:38 Dose: 150 mg Admin: 08/02/19 19:15 Dose: 150 mg Admin: 08/01/19 19:09 Dose: 150 mg Admin: 07/31/19 19:32 Dose: 150 mg Admin: 07/30/19 19:25 Dose: 150 mg Admin: 07/29/19 19:32 Dose: 150 mg Admin: 07/28/19 19:15 Dose: 150 mg Admin: 07/27/19 19:22 Dose: 150 mg Admin: 07/26/19 19:40 Dose: 150 mg Admin: 07/25/19 19:50 Dose: 150 mg Admin: 07/24/19 19:33 Dose: 150 mg Admin: 07/23/19 19:32 Dose: 150 mg Admin: 07/22/19 19:26 Dose: 150 mg Admin: 07/21/19 19:34 Dose: 150 mg Admin: 07/20/19 19:25 Dose: 150 mg Admin: 07/19/19 19:19 Dose: 150 mg Admin: 07/18/19 19:36 Dose: 150 mg Admin: 07/17/19 19:17 Dose: 150 mg Admin: 07/16/19 19:40 Dose: 150 mg Admin: 07/15/19 19:11 Dose: 150 mg Admin: 07/14/19 19:22 Dose: 150 mg Admin: 07/13/19 19:21 Dose: 150 mg Admin: 07/12/19 19:26 Dose: 150 mg Admin: 07/11/19 19:26 Dose: 150 mg Admin: 07/10/19 19:25 Dose: 150 mg Admin: 07/09/19 19:17 Dose: 150 mg Admin: 07/08/19 19:26 Dose: 150 mg Admin: 07/07/19 19:18 Dose: 150 mg Admin: 07/06/19 19:26 Dose: 150 mg Admin: 07/05/19 19:53 Dose: 150 mg Admin: 07/04/19 19:23 Dose: 150 mg Admin: 07/03/19 19:12 Dose: 150 mg Admin: 07/02/19 19:18 Dose: 150 mg Admin: 07/01/19 19:19 Dose: 150 mg Admin: 06/30/19 19:12 Dose: 150 mg Admin: 06/29/19 19:16 Dose: 150 mg Admin: 06/28/19 19:11 Dose: 150 mg Admin: 06/27/19 19:09 Dose: 150 mg Admin: 06/26/19 19:06 Dose: 150 mg Admin: 06/25/19 19:25 Dose: 150 mg Admin: 06/24/19 19:11 Dose: 150 mg Admin: 06/23/19 19:09 Dose: 150 mg Admin: 06/22/19 19:18 Dose: 150 mg Admin: 06/21/19 19:18 Dose: 150 mg Admin: 06/20/19 19:21 Dose: 150 mg Admin: 06/19/19 19:15 Dose: 150 mg Admin: 06/18/19 19:19 Dose: 150 mg Admin: 06/17/19 19:15 Dose: 150 mg Admin: 06/16/19 19:07 Dose: 150 mg Admin: 06/15/19 19:43 Dose: 150 mg Admin: 06/14/19 19:20 Dose: 150 mg Admin: 06/13/19 19:18 Dose: 150 mg Admin: 06/12/19 19:22 Dose: 150 mg Admin: 06/11/19 19:29 Dose: 150 mg Admin: 06/10/19 19:15 Dose: 150 mg Admin: 06/09/19 19:32 Dose: 150 mg Admin: 06/08/19 19:13 Dose: 150 mg Admin: 06/07/19 19:13 Dose: 150 mg Admin: 06/06/19 19:16 Dose: 150 mg Admin: 06/05/19 19:22 Dose: 150 mg Admin: 06/04/19 19:20 Dose: 150 mg Admin: 06/03/19 19:21 Dose: 150 mg Admin: 06/02/19 19:58 Dose: 150 mg Admin: 06/01/19 19:24 Dose: 150 mg Admin: 05/31/19 20:03 Dose: 150 mg Admin: 05/30/19 19:16 Dose: 150 mg Admin: 05/29/19 19:08 Dose: 150 mg Admin: 05/28/19 19:17 Dose: 150 mg Admin: 05/27/19 19:21 Dose: 150 mg Admin: 05/26/19 19:48 Dose: 150 mg Admin: 05/25/19 19:12 Dose: 150 mg Admin: 05/24/19 19:30 Dose: 150 mg Cholecalciferol (Vitamin D3) 25 mcg PO DAILY MIESHA Last Admin: 08/26/19 08:03 Dose: 25 mcg Admin: 08/25/19 07:58 Dose: 25 mcg Admin: 08/24/19 08:17 Dose: 25 mcg Admin: 08/23/19 07:31 Dose: 25 mcg Admin: 08/22/19 08:09 Dose: 25 mcg Admin: 08/21/19 07:55 Dose: 25 mcg Admin: 08/20/19 07:56 Dose: 25 mcg Admin: 08/19/19 07:14 Dose: 25 mcg Admin: 08/18/19 07:30 Dose: 25 mcg Admin: 08/17/19 07:51 Dose: 25 mcg Admin: 08/16/19 07:35 Dose: 25 mcg Admin: 08/15/19 07:36 Dose: 25 mcg Admin: 08/14/19 07:53 Dose: 25 mcg Admin: 08/13/19 08:00 Dose: 25 mcg Admin: 08/12/19 07:52 Dose: 25 mcg Admin: 08/11/19 07:28 Dose: 25 mcg Admin: 08/10/19 07:47 Dose: 25 mcg Admin: 08/09/19 07:40 Dose: 25 mcg Admin: 08/08/19 07:16 Dose: 25 mcg Admin: 08/07/19 07:33 Dose: 25 mcg Admin: 08/06/19 07:29 Dose: 25 mcg Admin: 08/05/19 07:54 Dose: 25 mcg Admin: 08/04/19 07:54 Dose: 25 mcg Admin: 08/03/19 08:03 Dose: 25 mcg Admin: 08/02/19 14:37 Dose: Admin: 08/01/19 07:55 Dose: 25 mcg Admin: 07/31/19 07:38 Dose: 25 mcg Admin: 07/30/19 08:06 Dose: 25 mcg Admin: 07/29/19 07:21 Dose: 25 mcg Admin: 07/28/19 07:38 Dose: 25 mcg Admin: 07/27/19 07:41 Dose: 25 mcg Admin: 07/26/19 08:03 Dose: 25 mcg Admin: 07/25/19 07:54 Dose: 25 mcg Admin: 07/24/19 07:34 Dose: 25 mcg Admin: 07/23/19 08:22 Dose: 25 mcg Admin: 07/22/19 08:11 Dose: 25 mcg Admin: 07/21/19 08:18 Dose: 25 mcg Admin: 07/20/19 08:00 Dose: 25 mcg Admin: 07/19/19 07:32 Dose: 25 mcg Admin: 07/18/19 07:34 Dose: 25 mcg Admin: 07/17/19 07:35 Dose: 25 mcg Admin: 07/16/19 07:35 Dose: 25 mcg Admin: 07/15/19 08:04 Dose: 25 mcg Admin: 07/14/19 08:00 Dose: 25 mcg Admin: 07/13/19 08:01 Dose: 25 mcg Admin: 07/12/19 07:30 Dose: 25 mcg Admin: 07/11/19 07:53 Dose: 25 mcg Admin: 07/10/19 08:02 Dose: 25 mcg Admin: 07/09/19 07:26 Dose: 25 mcg Admin: 07/08/19 07:27 Dose: 25 mcg Admin: 07/07/19 08:03 Dose: 25 mcg Admin: 07/06/19 07:57 Dose: 25 mcg Admin: 07/05/19 07:48 Dose: 25 mcg Admin: 07/04/19 07:29 Dose: 25 mcg Admin: 07/03/19 07:47 Dose: 25 mcg Admin: 07/02/19 08:28 Dose: 25 mcg Admin: 07/01/19 08:28 Dose: 25 mcg Admin: 06/30/19 08:11 Dose: 25 mcg Admin: 06/29/19 07:50 Dose: 25 mcg Admin: 06/28/19 07:52 Dose: 25 mcg Admin: 06/27/19 07:54 Dose: 25 mcg Admin: 06/26/19 08:03 Dose: 25 mcg Admin: 06/25/19 08:11 Dose: 25 mcg Admin: 06/24/19 07:46 Dose: 25 mcg Admin: 06/23/19 08:12 Dose: 25 mcg Admin: 06/22/19 07:35 Dose: 25 mcg Admin: 06/21/19 07:23 Dose: 25 mcg Admin: 06/20/19 07:21 Dose: 25 mcg Admin: 06/19/19 07:25 Dose: 25 mcg Admin: 06/18/19 08:07 Dose: 25 mcg Admin: 06/17/19 07:54 Dose: 25 mcg Admin: 06/16/19 07:51 Dose: 25 mcg Admin: 06/15/19 07:20 Dose: 25 mcg Admin: 06/14/19 08:33 Dose: 25 mcg Admin: 06/13/19 08:25 Dose: 25 mcg Admin: 06/12/19 08:45 Dose: 25 mcg Admin: 06/11/19 08:35 Dose: 25 mcg Admin: 06/10/19 07:57 Dose: 25 mcg Admin: 06/09/19 08:04 Dose: 25 mcg Admin: 06/08/19 07:15 Dose: 25 mcg Admin: 06/07/19 07:26 Dose: 25 mcg Admin: 06/06/19 07:24 Dose: 25 mcg Admin: 06/05/19 07:26 Dose: 25 mcg Admin: 06/04/19 08:12 Dose: 25 mcg Admin: 06/03/19 08:28 Dose: 25 mcg Admin: 06/02/19 07:20 Dose: 25 mcg Admin: 06/01/19 08:33 Dose: 25 mcg Admin: 05/31/19 07:42 Dose: 25 mcg Admin: 05/30/19 08:07 Dose: 25 mcg Admin: 05/29/19 08:07 Dose: 25 mcg Admin: 05/28/19 07:26 Dose: 25 mcg Admin: 05/27/19 08:10 Dose: 25 mcg Citalopram Hydrobromide (Celexa) 20 mg PO QAM MIES[facility] Admin: 08/26/19 08:02 Dose: 20 mg Admin: 08/25/19 07:58 Dose: 20 mg Admin: 08/24/19 08:15 Dose: 20 mg Admin: 08/23/19 07:30 Dose: 20 mg Admin: 08/22/19 08:09 Dose: 20 mg Admin: 08/21/19 07:54 Dose: 20 mg Admin: 08/20/19 07:56 Dose: 20 mg Admin: 08/19/19 07:13 Dose: 20 mg Admin: 08/18/19 07:28 Dose: 20 mg Admin: 08/17/19 07:49 Dose: 20 mg Admin: 08/16/19 07:34 Dose: 20 mg Admin: 08/15/19 07:36 Dose: 20 mg Admin: 08/14/19 07:52 Dose: 20 mg Admin: 08/13/19 07:58 Dose: 20 mg Admin: 08/12/19 07:50 Dose: 20 mg Admin: 08/11/19 07:25 Dose: 20 mg Admin: 08/10/19 07:45 Dose: 20 mg Admin: 08/09/19 07:35 Dose: 20 mg Admin: 08/08/19 07:14 Dose: 20 mg Admin: 08/07/19 07:31 Dose: 20 mg Admin: 08/06/19 07:27 Dose: 20 mg Admin: 08/05/19 07:52 Dose: 20 mg Admin: 08/04/19 07:49 Dose: 20 mg Admin: 08/03/19 08:01 Dose: 20 mg Admin: 08/02/19 14:36 Dose: Admin: 08/01/19 07:53 Dose: 20 mg Admin: 07/31/19 07:37 Dose: 20 mg Admin: 07/30/19 08:02 Dose: 20 mg Admin: 07/29/19 07:18 Dose: 20 mg Admin: 07/28/19 07:35 Dose: 20 mg Admin: 07/27/19 07:38 Dose: 20 mg Admin: 07/26/19 08:00 Dose: 20 mg Admin: 07/25/19 07:52 Dose: 20 mg Admin: 07/24/19 07:31 Dose: 20 mg Admin: 07/23/19 08:18 Dose: 20 mg Admin: 07/22/19 08:08 Dose: 20 mg Admin: 07/21/19 08:15 Dose: 20 mg Admin: 07/20/19 07:57 Dose: 20 mg Admin: 07/19/19 07:31 Dose: 20 mg Admin: 07/18/19 07:32 Dose: 20 mg Admin: 07/17/19 07:34 Dose: 20 mg Admin: 07/16/19 07:33 Dose: 20 mg Admin: 07/15/19 08:03 Dose: 20 mg Admin: 07/14/19 08:01 Dose: 20 mg Admin: 07/13/19 07:59 Dose: 20 mg Admin: 07/12/19 07:29 Dose: 20 mg Admin: 07/11/19 07:52 Dose: 20 mg Admin: 07/10/19 08:02 Dose: 20 mg Admin: 07/09/19 07:24 Dose: 20 mg Admin: 07/08/19 07:23 Dose: 20 mg Admin: 07/07/19 08:02 Dose: 20 mg Admin: 07/06/19 07:55 Dose: 20 mg Admin: 07/05/19 07:45 Dose: 20 mg Admin: 07/04/19 07:27 Dose: 20 mg Admin: 07/03/19 07:47 Dose: 20 mg Admin: 07/02/19 08:25 Dose: 20 mg Admin: 07/01/19 08:23 Dose: 20 mg Admin: 06/30/19 08:09 Dose: 20 mg Admin: 06/29/19 07:49 Dose: 20 mg Admin: 06/28/19 07:52 Dose: 20 mg Admin: 06/27/19 07:52 Dose: 20 mg Admin: 06/26/19 08:01 Dose: 20 mg Admin: 06/25/19 08:10 Dose: 20 mg Admin: 06/24/19 07:44 Dose: 20 mg Admin: 06/23/19 08:09 Dose: 20 mg Admin: 06/22/19 07:32 Dose: 20 mg Admin: 06/21/19 07:21 Dose: 20 mg Admin: 06/20/19 07:17 Dose: 20 mg Admin: 06/19/19 07:23 Dose: 20 mg Admin: 06/18/19 08:05 Dose: 20 mg Admin: 06/17/19 07:50 Dose: 20 mg Admin: 06/16/19 07:47 Dose: 20 mg Admin: 06/15/19 07:18 Dose: 20 mg Admin: 06/14/19 08:29 Dose: 20 mg Admin: 06/13/19 08:22 Dose: 20 mg Admin: 06/12/19 08:45 Dose: 20 mg Admin: 06/11/19 08:33 Dose: 20 mg Admin: 06/10/19 07:56 Dose: 20 mg Admin: 06/09/19 08:01 Dose: 20 mg Admin: 06/08/19 07:13 Dose: 20 mg Admin: 06/07/19 07:26 Dose: 20 mg Admin: 06/06/19 07:23 Dose: 20 mg Admin: 06/05/19 07:25 Dose: 20 mg Admin: 06/04/19 08:11 Dose: 20 mg Admin: 06/03/19 08:27 Dose: 20 mg Admin: 06/02/19 07:19 Dose: 20 mg Admin: 06/01/19 08:31 Dose: 20 mg Admin: 05/31/19 07:40 Dose: 20 mg Admin: 05/30/19 08:05 Dose: 20 mg Admin: 05/29/19 08:06 Dose: 20 mg Admin: 05/28/19 07:23 Dose: 20 mg Admin: 05/27/19 08:08 Dose: 20 mg Admin: 05/26/19 08:23 Dose: 20 mg Admin: 05/25/19 08:27 Dose: 20 mg Cyanocobalamin (Vitamin B12) 1,000 mcg PO QAM MIESHA Last Admin: 08/26/19 08:03 Dose: 1,000 mcg Admin: 08/25/19 07:59 Dose: 1,000 mcg Admin: 08/24/19 08:16 Dose: 1,000 mcg Admin: 08/23/19 07:31 Dose: 1,000 mcg Admin: 08/22/19 08:09 Dose: 1,000 mcg Admin: 08/21/19 07:55 Dose: 1,000 mcg Admin: 08/20/19 07:56 Dose: 1,000 mcg Admin: 08/19/19 07:14 Dose: 1,000 mcg Admin: 08/18/19 07:29 Dose: 1,000 mcg Admin: 08/17/19 07:51 Dose: 1,000 mcg Admin: 08/16/19 07:35 Dose: 1,000 mcg Admin: 08/15/19 07:37 Dose: 1,000 mcg Admin: 08/14/19 07:53 Dose: 1,000 mcg Admin: 08/13/19 08:00 Dose: 1,000 mcg Admin: 08/12/19 07:52 Dose: 1,000 mcg Admin: 08/11/19 07:27 Dose: 1,000 mcg Admin: 08/10/19 07:47 Dose: 1,000 mcg Admin: 08/09/19 07:39 Dose: 1,000 mcg Admin: 08/08/19 07:16 Dose: 1,000 mcg Admin: 08/07/19 07:33 Dose: 1,000 mcg Admin: 08/06/19 07:28 Dose: 1,000 mcg Admin: 08/05/19 07:53 Dose: 1,000 mcg Admin: 08/04/19 07:54 Dose: 1,000 mcg Admin: 08/03/19 08:03 Dose: 1,000 mcg Admin: 08/02/19 14:37 Dose: Admin: 08/01/19 07:55 Dose: 1,000 mcg Admin: 07/31/19 07:38 Dose: 1,000 mcg Admin: 07/30/19 08:06 Dose: 1,000 mcg Admin: 07/29/19 07:21 Dose: 1,000 mcg Admin: 07/28/19 07:37 Dose: 1,000 mcg Admin: 07/27/19 07:41 Dose: 1,000 mcg Admin: 07/26/19 08:03 Dose: 1,000 mcg Admin: 07/25/19 07:54 Dose: 1,000 mcg Admin: 07/24/19 07:33 Dose: 1,000 mcg Admin: 07/23/19 08:22 Dose: 1,000 mcg Admin: 07/22/19 08:11 Dose: 1,000 mcg Admin: 07/21/19 08:17 Dose: 1,000 mcg Admin: 07/20/19 07:59 Dose: 1,000 mcg Admin: 07/19/19 07:32 Dose: 1,000 mcg Admin: 07/18/19 07:34 Dose: 1,000 mcg Admin: 07/17/19 07:35 Dose: 1,000 mcg Admin: 07/16/19 07:35 Dose: 1,000 mcg Admin: 07/15/19 08:04 Dose: 1,000 mcg Admin: 07/14/19 08:00 Dose: 1,000 mcg Admin: 07/13/19 08:01 Dose: 1,000 mcg Admin: 07/12/19 07:30 Dose: 1,000 mcg Admin: 07/11/19 07:54 Dose: 1,000 mcg Admin: 07/10/19 08:03 Dose: 1,000 mcg Admin: 07/09/19 07:26 Dose: 1,000 mcg Admin: 07/08/19 07:27 Dose: 1,000 mcg Admin: 07/07/19 08:03 Dose: 1,000 mcg Admin: 07/06/19 07:56 Dose: 1,000 mcg Admin: 07/05/19 07:48 Dose: 1,000 mcg Admin: 07/04/19 07:28 Dose: 1,000 mcg Admin: 07/03/19 07:49 Dose: 1,000 mcg Admin: 07/02/19 08:28 Dose: 1,000 mcg Admin: 07/01/19 08:28 Dose: 1,000 mcg Admin: 06/30/19 08:10 Dose: 1,000 mcg Admin: 06/29/19 07:50 Dose: 1,000 mcg Admin: 06/28/19 07:52 Dose: 1,000 mcg Admin: 06/27/19 07:54 Dose: 1,000 mcg Admin: 06/26/19 08:03 Dose: 1,000 mcg Admin: 06/25/19 08:11 Dose: 1,000 mcg Admin: 06/24/19 07:46 Dose: 1,000 mcg Admin: 06/23/19 08:12 Dose: 1,000 mcg Admin: 06/22/19 07:35 Dose: 1,000 mcg Admin: 06/21/19 07:22 Dose: 1,000 mcg Admin: 06/20/19 07:21 Dose: 1,000 mcg Admin: 06/19/19 07:25 Dose: 1,000 mcg Admin: 06/18/19 08:06 Dose: 1,000 mcg Admin: 06/17/19 07:54 Dose: 1,000 mcg Admin: 06/16/19 07:51 Dose: 1,000 mcg Admin: 06/15/19 07:19 Dose: 1,000 mcg Admin: 06/14/19 08:31 Dose: 1,000 mcg Admin: 06/13/19 08:25 Dose: 1,000 mcg Admin: 06/12/19 08:59 Dose: 1,000 mcg Admin: 06/11/19 08:34 Dose: 1,000 mcg Admin: 06/10/19 07:57 Dose: 1,000 mcg Admin: 06/09/19 08:04 Dose: 1,000 mcg Admin: 06/08/19 07:14 Dose: 1,000 mcg Admin: 06/07/19 07:26 Dose: 1,000 mcg Admin: 06/06/19 07:24 Dose: 1,000 mcg Admin: 06/05/19 07:26 Dose: 1,000 mcg Admin: 06/04/19 08:13 Dose: 1,000 mcg Admin: 06/03/19 08:28 Dose: 1,000 mcg Admin: 06/02/19 07:20 Dose: 1,000 mcg Admin: 06/01/19 08:33 Dose: 1,000 mcg Admin: 05/31/19 07:42 Dose: 1,000 mcg Admin: 05/30/19 08:07 Dose: 1,000 mcg Admin: 05/29/19 08:07 Dose: 1,000 mcg Admin: 05/28/19 07:26 Dose: 1,000 mcg Admin: 05/27/19 08:10 Dose: 1,000 mcg Admin: 05/26/19 08:26 Dose: 1,000 mcg Admin: 05/25/19 08:29 Dose: 1,000 mcg Diphenoxylate HCl/Atropine (Lomotil 0.025-2.5 Mg) 1 tab PO TID PRN PRN Reason: Diarrhea Last Admin: 08/03/19 20:02 Dose: 1 tab Admin: 07/29/19 08:45 Dose: 1 tab Admin: 07/26/19 09:54 Dose: 1 tab Admin: 07/25/19 19:56 Dose: 1 tab Admin: 07/24/19 17:40 Dose: 1 tab Admin: 07/23/19 17:59 Dose: 1 tab Fludrocortisone Acetate (Florinef) 0.1 mg PO BEDTIME MIESHA Last Admin: 08/25/19 19:27 Dose: 0.1 mg Admin: 08/24/19 19:17 Dose: 0.1 mg Admin: 08/23/19 19:10 Dose: 0.1 mg Admin: 08/22/19 19:10 Dose: 0.1 mg Admin: 08/21/19 19:27 Dose: 0.1 mg Admin: 08/20/19 19:05 Dose: 0.1 mg Admin: 08/19/19 19:22 Dose: 0.1 mg Admin: 08/18/19 19:40 Dose: 0.1 mg Admin: 08/17/19 19:24 Dose: 0.1 mg Admin: 08/16/19 19:12 Dose: 0.1 mg Admin: 08/15/19 19:16 Dose: 0.1 mg Admin: 08/14/19 19:18 Dose: 0.1 mg Admin: 08/13/19 19:22 Dose: 0.1 mg Admin: 08/12/19 19:08 Dose: 0.1 mg Admin: 08/11/19 19:17 Dose: 0.1 mg Admin: 08/10/19 19:04 Dose: 0.1 mg Admin: 08/09/19 19:33 Dose: 0.1 mg Admin: 08/08/19 19:48 Dose: 0.1 mg Admin: 08/07/19 19:43 Dose: 0.1 mg Admin: 08/06/19 19:32 Dose: 0.1 mg Admin: 08/05/19 19:20 Dose: 0.1 mg Admin: 08/04/19 19:12 Dose: 0.1 mg Admin: 08/03/19 19:38 Dose: 0.1 mg Admin: 08/02/19 19:15 Dose: 0.1 mg Admin: 08/01/19 19:05 Dose: 0.1 mg Admin: 07/31/19 19:29 Dose: 0.1 mg Admin: 07/30/19 19:24 Dose: 0.1 mg Admin: 07/29/19 19:30 Dose: 0.1 mg Admin: 07/28/19 19:15 Dose: 0.1 mg Admin: 07/27/19 19:22 Dose: 0.1 mg Admin: 07/26/19 19:37 Dose: 0.1 mg Admin: 07/25/19 19:48 Dose: 0.1 mg Admin: 07/24/19 19:27 Dose: 0.1 mg Admin: 07/23/19 19:32 Dose: 0.1 mg Admin: 07/22/19 19:27 Dose: 0.1 mg Admin: 07/21/19 19:34 Dose: 0.1 mg Admin: 07/20/19 19:18 Dose: 0.1 mg Admin: 07/19/19 19:20 Dose: 0.1 mg Admin: 07/18/19 19:36 Dose: 0.1 mg Admin: 07/17/19 19:17 Dose: 0.1 mg Admin: 07/16/19 19:40 Dose: 0.1 mg Admin: 07/15/19 19:11 Dose: 0.1 mg Admin: 07/14/19 19:22 Dose: 0.1 mg Admin: 07/13/19 19:22 Dose: 0.1 mg Admin: 07/12/19 19:24 Dose: 0.1 mg Admin: 07/11/19 19:26 Dose: 0.1 mg Admin: 07/10/19 19:25 Dose: 0.1 mg Admin: 07/09/19 19:17 Dose: 0.1 mg Admin: 07/08/19 19:25 Dose: 0.1 mg Admin: 07/07/19 19:16 Dose: 0.1 mg Admin: 07/06/19 19:25 Dose: 0.1 mg Admin: 07/05/19 19:52 Dose: 0.1 mg Admin: 07/04/19 19:23 Dose: 0.1 mg Admin: 07/03/19 19:12 Dose: 0.1 mg Admin: 07/02/19 19:18 Dose: 0.1 mg Admin: 07/01/19 19:18 Dose: 0.1 mg Admin: 06/30/19 19:12 Dose: 0.1 mg Admin: 06/29/19 19:15 Dose: 0.1 mg Admin: 06/28/19 19:07 Dose: 0.1 mg Admin: 06/27/19 19:09 Dose: 0.1 mg Admin: 06/26/19 19:07 Dose: 0.1 mg Admin: 06/25/19 19:25 Dose: 0.1 mg Admin: 06/24/19 19:11 Dose: 0.1 mg Admin: 06/23/19 19:09 Dose: 0.1 mg Admin: 06/22/19 19:17 Dose: 0.1 mg Admin: 06/21/19 19:18 Dose: 0.1 mg Admin: 06/20/19 19:21 Dose: 0.1 mg Admin: 06/19/19 19:15 Dose: 0.1 mg Admin: 06/18/19 19:18 Dose: 0.1 mg Admin: 06/17/19 19:15 Dose: 0.1 mg Admin: 06/16/19 19:07 Dose: 0.1 mg Admin: 06/15/19 19:43 Dose: 0.1 mg Admin: 06/14/19 19:18 Dose: 0.1 mg Admin: 06/13/19 19:18 Dose: 0.1 mg Admin: 06/12/19 19:22 Dose: 0.1 mg Admin: 06/11/19 19:29 Dose: 0.1 mg Admin: 06/10/19 19:15 Dose: 0.1 mg Admin: 06/09/19 19:32 Dose: 0.1 mg Admin: 06/08/19 19:12 Dose: 0.1 mg Admin: 06/07/19 19:12 Dose: 0.1 mg Admin: 06/06/19 19:16 Dose: 0.1 mg Admin: 06/05/19 19:22 Dose: 0.1 mg Admin: 06/04/19 19:20 Dose: 0.1 mg Admin: 06/03/19 19:21 Dose: 0.1 mg Admin: 06/02/19 19:59 Dose: 0.1 mg Admin: 06/01/19 19:24 Dose: 0.1 mg Admin: 05/31/19 20:02 Dose: 0.1 mg Admin: 05/30/19 19:16 Dose: 0.1 mg Admin: 05/29/19 19:08 Dose: 0.1 mg Admin: 05/28/19 19:17 Dose: 0.1 mg Admin: 05/27/19 19:19 Dose: 0.1 mg Admin: 05/26/19 19:49 Dose: 0.1 mg Admin: 05/25/19 19:11 Dose: 0.1 mg Admin: 05/24/19 19:29 Dose: 0.1 mg Fludrocortisone Acetate (Florinef) 0.2 mg PO QAM [facility] Admin: 08/26/19 08:02 Dose: 0.2 mg Admin: 08/25/19 07:58 Dose: 0.2 mg Admin: 08/24/19 08:15 Dose: 0.2 mg Admin: 08/23/19 07:30 Dose: 0.2 mg Admin: 08/22/19 08:08 Dose: 0.2 mg Admin: 08/21/19 07:54 Dose: 0.2 mg Admin: 08/20/19 07:55 Dose: 0.2 mg Admin: 08/19/19 07:13 Dose: 0.2 mg Admin: 08/18/19 07:28 Dose: 0.2 mg Admin: 08/17/19 07:49 Dose: 0.2 mg Admin: 08/16/19 07:34 Dose: 0.2 mg Admin: 08/15/19 07:35 Dose: 0.2 mg Admin: 08/14/19 07:52 Dose: 0.2 mg Admin: 08/13/19 07:58 Dose: 0.2 mg Admin: 08/12/19 07:51 Dose: 0.2 mg Admin: 08/11/19 07:25 Dose: 0.2 mg Admin: 08/10/19 07:45 Dose: 0.2 mg Admin: 08/09/19 07:35 Dose: 0.2 mg Admin: 08/08/19 07:15 Dose: 0.2 mg Admin: 08/07/19 07:31 Dose: 0.2 mg Admin: 08/06/19 07:27 Dose: 0.2 mg Admin: 08/05/19 07:51 Dose: 0.2 mg Admin: 08/04/19 07:49 Dose: 0.2 mg Admin: 08/03/19 08:01 Dose: 0.2 mg Admin: 08/02/19 14:36 Dose: Admin: 08/01/19 07:53 Dose: 0.2 mg Admin: 07/31/19 07:37 Dose: 0.2 mg Admin: 07/30/19 08:02 Dose: 0.2 mg Admin: 07/29/19 07:19 Dose: 0.2 mg Admin: 07/28/19 07:35 Dose: 0.2 mg Admin: 07/27/19 07:39 Dose: 0.2 mg Admin: 07/26/19 08:00 Dose: 0.2 mg Admin: 07/25/19 07:52 Dose: 0.2 mg Admin: 07/24/19 07:31 Dose: 0.2 mg Admin: 07/23/19 08:18 Dose: 0.2 mg Admin: 07/22/19 08:09 Dose: 0.2 mg Admin: 07/21/19 08:16 Dose: 0.2 mg Admin: 07/20/19 07:57 Dose: 0.2 mg Admin: 07/19/19 07:31 Dose: 0.2 mg Admin: 07/18/19 07:33 Dose: 0.2 mg Admin: 07/17/19 07:34 Dose: 0.2 mg Admin: 07/16/19 07:34 Dose: 0.2 mg Admin: 07/15/19 08:03 Dose: 0.2 mg Admin: 07/14/19 08:01 Dose: 0.2 mg Admin: 07/13/19 07:59 Dose: 0.2 mg Admin: 07/12/19 07:29 Dose: 0.2 mg Admin: 07/11/19 07:52 Dose: 0.2 mg Admin: 07/10/19 08:02 Dose: 0.2 mg Admin: 07/09/19 07:24 Dose: 0.2 mg Admin: 07/08/19 07:25 Dose: 0.2 mg Admin: 07/07/19 08:02 Dose: 0.2 mg Admin: 07/06/19 07:55 Dose: 0.2 mg Admin: 07/05/19 07:45 Dose: 0.2 mg Admin: 07/04/19 07:26 Dose: 0.2 mg Admin: 07/03/19 07:47 Dose: 0.2 mg Admin: 07/02/19 08:25 Dose: 0.2 mg Admin: 07/01/19 08:24 Dose: 0.2 mg Admin: 06/30/19 08:08 Dose: 0.2 mg Admin: 06/29/19 07:48 Dose: 0.2 mg Admin: 06/28/19 07:52 Dose: 0.2 mg Admin: 06/27/19 07:52 Dose: 0.2 mg Admin: 06/26/19 08:01 Dose: 0.2 mg Admin: 06/25/19 08:10 Dose: 0.2 mg Admin: 06/24/19 07:44 Dose: 0.2 mg Admin: 06/23/19 08:09 Dose: 0.2 mg Admin: 06/22/19 07:32 Dose: 0.2 mg Admin: 06/21/19 07:21 Dose: 0.2 mg Admin: 06/20/19 07:17 Dose: 0.2 mg Admin: 06/19/19 07:24 Dose: 0.2 mg Admin: 06/18/19 08:04 Dose: 0.2 mg Admin: 06/17/19 07:50 Dose: 0.2 mg Admin: 06/16/19 07:48 Dose: 0.2 mg Admin: 06/15/19 07:19 Dose: 0.2 mg Admin: 06/14/19 08:29 Dose: 0.2 mg Admin: 06/13/19 08:22 Dose: 0.2 mg Admin: 06/12/19 08:57 Dose: 0.2 mg Admin: 06/11/19 08:33 Dose: 0.2 mg Admin: 06/10/19 07:56 Dose: 0.2 mg Admin: 06/09/19 08:01 Dose: 0.2 mg Admin: 06/08/19 07:13 Dose: 0.2 mg Admin: 06/07/19 07:26 Dose: 0.2 mg Admin: 06/06/19 07:23 Dose: 0.2 mg Admin: 06/05/19 07:25 Dose: 0.2 mg Admin: 06/04/19 08:11 Dose: 0.2 mg Admin: 06/03/19 08:27 Dose: 0.2 mg Admin: 06/02/19 07:19 Dose: 0.2 mg Admin: 06/01/19 08:32 Dose: 0.2 mg Admin: 05/31/19 07:41 Dose: 0.2 mg Admin: 05/30/19 08:06 Dose: 0.2 mg Admin: 05/29/19 08:06 Dose: 0.2 mg Admin: 05/28/19 07:24 Dose: 0.2 mg Admin: 05/27/19 08:08 Dose: 0.2 mg Admin: 05/26/19 08:23 Dose: 0.2 mg Admin: 05/25/19 08:27 Dose: 0.2 mg Furosemide (Lasix) 20 mg PO DAILY MIESHA Last Admin: 08/26/19 08:02 Dose: 20 mg Admin: 08/25/19 07:57 Dose: 20 mg Admin: 08/24/19 08:15 Dose: 20 mg Admin: 08/23/19 07:31 Dose: 20 mg Admin: 08/22/19 08:09 Dose: 20 mg Admin: 08/21/19 07:54 Dose: 20 mg Admin: 08/20/19 07:55 Dose: 20 mg Admin: 08/19/19 07:14 Dose: 20 mg Admin: 08/18/19 07:29 Dose: 20 mg Admin: 08/17/19 07:50 Dose: 20 mg Admin: 08/16/19 07:34 Dose: 20 mg Admin: 08/15/19 07:35 Dose: 20 mg Admin: 08/14/19 07:52 Dose: 20 mg Admin: 08/13/19 07:58 Dose: 20 mg Admin: 08/12/19 08:00 Dose: 20 mg Admin: 08/11/19 07:25 Dose: 20 mg Admin: 08/10/19 07:46 Dose: 20 mg Admin: 08/09/19 07:36 Dose: 20 mg Admin: 08/08/19 07:15 Dose: 20 mg Admin: 08/07/19 07:32 Dose: 20 mg Admin: 08/06/19 07:27 Dose: 20 mg Admin: 08/05/19 07:51 Dose: 20 mg Admin: 08/04/19 07:50 Dose: 20 mg Admin: 08/03/19 08:01 Dose: 20 mg Admin: 08/02/19 14:36 Dose: Admin: 08/01/19 07:53 Dose: 20 mg Admin: 07/31/19 07:37 Dose: 20 mg Admin: 07/30/19 08:02 Dose: 20 mg Admin: 07/29/19 07:19 Dose: 20 mg Admin: 07/28/19 07:35 Dose: 20 mg Admin: 07/27/19 07:39 Dose: 20 mg Admin: 07/26/19 08:00 Dose: 20 mg Admin: 07/25/19 07:52 Dose: 20 mg Admin: 07/24/19 07:31 Dose: 20 mg Admin: 07/23/19 08:18 Dose: 20 mg Admin: 07/22/19 08:09 Dose: 20 mg Admin: 07/21/19 08:16 Dose: 20 mg Admin: 07/20/19 07:57 Dose: 20 mg Admin: 07/19/19 07:31 Dose: 20 mg Admin: 07/18/19 07:33 Dose: 20 mg Admin: 07/17/19 07:34 Dose: 20 mg Admin: 07/16/19 07:34 Dose: 20 mg Admin: 07/15/19 08:03 Dose: 20 mg Admin: 07/14/19 08:01 Dose: 20 mg Admin: 07/13/19 07:59 Dose: 20 mg Admin: 07/12/19 07:29 Dose: 20 mg Admin: 07/11/19 07:52 Dose: 20 mg Admin: 07/10/19 08:02 Dose: 20 mg Admin: 07/09/19 07:24 Dose: 20 mg Admin: 07/08/19 07:25 Dose: 20 mg Admin: 07/07/19 08:02 Dose: 20 mg Admin: 07/06/19 07:55 Dose: 20 mg Admin: 07/05/19 07:45 Dose: 20 mg Admin: 07/04/19 07:26 Dose: 20 mg Admin: 07/03/19 07:46 Dose: 20 mg Admin: 07/02/19 08:26 Dose: 20 mg Admin: 07/01/19 08:24 Dose: 20 mg Admin: 06/30/19 08:08 Dose: 20 mg Admin: 06/29/19 07:48 Dose: 20 mg Admin: 06/28/19 07:52 Dose: 20 mg Admin: 06/27/19 07:52 Dose: 20 mg Admin: 06/26/19 08:01 Dose: 20 mg Admin: 06/25/19 08:10 Dose: 20 mg Admin: 06/24/19 07:44 Dose: 20 mg Admin: 06/23/19 08:09 Dose: 20 mg Admin: 06/22/19 07:33 Dose: 20 mg Admin: 06/21/19 07:21 Dose: 20 mg Admin: 06/20/19 07:18 Dose: 20 mg Admin: 06/19/19 07:24 Dose: 20 mg Admin: 06/18/19 08:04 Dose: 20 mg Admin: 06/17/19 07:50 Dose: 20 mg Admin: 06/16/19 07:48 Dose: 20 mg Admin: 06/15/19 07:19 Dose: 20 mg Admin: 06/14/19 08:29 Dose: 20 mg Admin: 06/13/19 08:23 Dose: 20 mg Admin: 06/12/19 08:57 Dose: 20 mg Admin: 06/11/19 08:33 Dose: 20 mg Admin: 06/10/19 07:56 Dose: 20 mg Admin: 06/09/19 08:02 Dose: 20 mg Admin: 06/08/19 07:14 Dose: 20 mg Admin: 06/07/19 07:26 Dose: 20 mg Admin: 06/06/19 07:23 Dose: 20 mg Admin: 06/05/19 07:25 Dose: 20 mg Admin: 06/04/19 08:12 Dose: 20 mg Admin: 06/03/19 08:27 Dose: 20 mg Admin: 06/02/19 07:19 Dose: 20 mg Admin: 06/01/19 08:32 Dose: 20 mg Admin: 05/31/19 07:41 Dose: 20 mg Admin: 05/30/19 08:06 Dose: 20 mg Admin: 05/29/19 08:06 Dose: 20 mg Admin: 05/28/19 07:25 Dose: 20 mg Admin: 05/27/19 08:08 Dose: 20 mg Admin: 05/26/19 08:23 Dose: 20 mg Admin: 05/25/19 08:27 Dose: 20 mg Ibuprofen (Motrin) 600 mg PO Q6H PRN PRN Reason: Breakthrough Pain Last Admin: 08/23/19 07:32 Dose: 600 mg Admin: 08/21/19 07:55 Dose: 600 mg Admin: 08/19/19 17:04 Dose: 600 mg Admin: 08/19/19 07:13 Dose: 600 mg Admin: 08/18/19 17:11 Dose: 600 mg Admin: 08/18/19 07:30 Dose: 600 mg Admin: 08/18/19 00:48 Dose: 600 mg Admin: 08/17/19 07:50 Dose: 600 mg Admin: 08/16/19 17:11 Dose: 600 mg Admin: 08/16/19 07:33 Dose: 600 mg Admin: 08/13/19 19:23 Dose: 600 mg Admin: 08/12/19 19:10 Dose: 600 mg Admin: 08/11/19 19:18 Dose: 600 mg Admin: 08/09/19 17:21 Dose: 600 mg Admin: 08/09/19 07:35 Dose: 600 mg Admin: 08/08/19 17:07 Dose: 600 mg Admin: 08/08/19 07:13 Dose: 600 mg Admin: 08/07/19 17:15 Dose: 600 mg Admin: 08/07/19 07:31 Dose: 600 mg Admin: 08/06/19 17:09 Dose: 600 mg Admin: 08/06/19 07:29 Dose: 600 mg Admin: 08/04/19 17:12 Dose: 600 mg Admin: 07/29/19 17:14 Dose: 600 mg Admin: 07/29/19 07:17 Dose: 600 mg Admin: 07/28/19 17:13 Dose: 600 mg Admin: 07/28/19 07:33 Dose: 600 mg Admin: 07/27/19 17:08 Dose: 600 mg Admin: 07/27/19 07:42 Dose: 600 mg Admin: 07/23/19 18:00 Dose: 600 mg Admin: 07/22/19 18:08 Dose: 600 mg Admin: 07/21/19 09:55 Dose: 600 mg Admin: 07/20/19 15:12 Dose: 600 mg Admin: 07/19/19 17:15 Dose: 600 mg Admin: 07/19/19 07:30 Dose: 600 mg Admin: 07/18/19 17:12 Dose: 600 mg Admin: 07/18/19 07:12 Dose: 600 mg Admin: 07/17/19 07:31 Dose: 600 mg Admin: 07/16/19 17:18 Dose: 600 mg Admin: 07/16/19 07:32 Dose: 600 mg Admin: 07/13/19 08:02 Dose: 600 mg Admin: 07/12/19 17:09 Dose: 600 mg Admin: 07/12/19 07:54 Dose: 600 mg Admin: 07/09/19 22:49 Dose: 600 mg Admin: 07/09/19 07:23 Dose: 600 mg Admin: 07/08/19 13:04 Dose: 600 mg Admin: 07/01/19 08:30 Dose: 600 mg Admin: 06/29/19 17:37 Dose: 600 mg Admin: 06/27/19 07:54 Dose: 600 mg Admin: 06/26/19 08:03 Dose: 600 mg Admin: 06/21/19 17:20 Dose: 600 mg Admin: 06/21/19 07:23 Dose: 600 mg Admin: 06/20/19 17:08 Dose: 600 mg Admin: 06/20/19 07:16 Dose: 600 mg Admin: 06/19/19 07:22 Dose: 600 mg Admin: 06/18/19 11:24 Dose: 600 mg Admin: 06/17/19 19:17 Dose: 600 mg Admin: 06/17/19 08:36 Dose: 600 mg Admin: 06/15/19 17:53 Dose: 600 mg Admin: 06/15/19 07:43 Dose: 600 mg Admin: 06/09/19 08:04 Dose: 600 mg Admin: 06/08/19 07:12 Dose: 600 mg Admin: 06/07/19 19:14 Dose: 600 mg Admin: 06/07/19 07:27 Dose: 600 mg Admin: 06/06/19 07:25 Dose: 600 mg Admin: 06/05/19 13:03 Dose: 600 mg Admin: 06/04/19 08:12 Dose: 600 mg Admin: 06/02/19 07:17 Dose: 600 mg Admin: 05/31/19 07:43 Dose: 600 mg Admin: 05/30/19 18:06 Dose: 600 mg Admin: 05/27/19 17:55 Dose: 600 mg Methyl Salicylate (Icy Hot Cream) 0 gm TOP QID PRN PRN Reason: Pain (mild 1-3) Last Admin: 05/29/19 02:15 Dose: 1 applic Niacin (Niacin) 500 mg PO BID MIESHA Last Admin: 08/26/19 08:02 Dose: 500 mg Admin: 08/25/19 17:15 Dose: 500 mg Admin: 08/25/19 07:59 Dose: 500 mg Admin: 08/24/19 17:39 Dose: 500 mg Admin: 08/24/19 08:16 Dose: 500 mg Admin: 08/23/19 17:10 Dose: 500 mg Admin: 08/23/19 07:31 Dose: 500 mg Admin: 08/22/19 17:10 Dose: 500 mg Admin: 08/22/19 08:09 Dose: 500 mg Admin: 08/21/19 17:41 Dose: 500 mg Admin: 08/21/19 07:54 Dose: 500 mg Admin: 08/20/19 17:39 Dose: 500 mg Admin: 08/20/19 07:57 Dose: 500 mg Admin: 08/19/19 17:05 Dose: 500 mg Admin: 08/19/19 07:14 Dose: 500 mg Admin: 08/18/19 17:12 Dose: 500 mg Admin: 08/18/19 07:29 Dose: 500 mg Admin: 08/17/19 17:51 Dose: 500 mg Admin: 08/17/19 07:51 Dose: 500 mg Admin: 08/16/19 17:11 Dose: 500 mg Admin: 08/16/19 07:34 Dose: 500 mg Admin: 08/15/19 17:14 Dose: 500 mg Admin: 08/15/19 07:37 Dose: 500 mg Admin: 08/14/19 17:09 Dose: 500 mg Admin: 08/14/19 07:53 Dose: 500 mg Admin: 08/13/19 17:43 Dose: 500 mg Admin: 08/13/19 07:59 Dose: 500 mg Admin: 08/12/19 17:36 Dose: 500 mg Admin: 08/12/19 07:51 Dose: 500 mg Admin: 08/11/19 17:32 Dose: 500 mg Admin: 08/11/19 07:26 Dose: 500 mg Admin: 08/10/19 17:39 Dose: 500 mg Admin: 08/10/19 07:46 Dose: 500 mg Admin: 08/09/19 17:20 Dose: 500 mg Admin: 08/09/19 07:36 Dose: 500 mg Admin: 08/08/19 17:08 Dose: 500 mg Admin: 08/08/19 07:15 Dose: 500 mg Admin: 08/07/19 17:14 Dose: 500 mg Admin: 08/07/19 07:32 Dose: 500 mg Admin: 08/06/19 17:10 Dose: 500 mg Admin: 08/06/19 07:28 Dose: 500 mg Admin: 08/05/19 17:46 Dose: 500 mg Admin: 08/05/19 07:50 Dose: 500 mg Admin: 08/04/19 17:11 Dose: 500 mg Admin: 08/04/19 07:51 Dose: 500 mg Admin: 08/03/19 17:34 Dose: 500 mg Admin: 08/03/19 08:03 Dose: 500 mg Admin: 08/02/19 17:34 Dose: 500 mg Admin: 08/02/19 14:37 Dose: Admin: 08/01/19 17:56 Dose: 500 mg Admin: 08/01/19 07:54 Dose: 500 mg Admin: 07/31/19 17:43 Dose: 500 mg Admin: 07/31/19 07:38 Dose: 500 mg Admin: 07/30/19 17:23 Dose: 500 mg Admin: 07/30/19 08:05 Dose: 500 mg Admin: 07/29/19 17:14 Dose: 500 mg Admin: 07/29/19 07:20 Dose: 500 mg Admin: 07/28/19 17:12 Dose: 500 mg Admin: 07/28/19 07:36 Dose: 500 mg Admin: 07/27/19 17:08 Dose: 500 mg Admin: 07/27/19 07:41 Dose: 500 mg Admin: 07/26/19 17:14 Dose: 500 mg Admin: 07/26/19 08:01 Dose: 500 mg Admin: 07/25/19 17:22 Dose: 500 mg Admin: 07/25/19 07:54 Dose: 500 mg Admin: 07/24/19 17:39 Dose: 500 mg Admin: 07/24/19 07:34 Dose: 500 mg Admin: 07/23/19 17:59 Dose: 500 mg Admin: 07/23/19 08:20 Dose: 500 mg Admin: 07/22/19 18:06 Dose: 500 mg Admin: 07/22/19 08:10 Dose: 500 mg Admin: 07/21/19 17:25 Dose: 500 mg Admin: 07/21/19 08:16 Dose: 500 mg Admin: 07/20/19 17:55 Dose: 500 mg Admin: 07/20/19 07:58 Dose: 500 mg Admin: 07/19/19 17:15 Dose: 500 mg Admin: 07/19/19 07:31 Dose: 500 mg Admin: 07/18/19 17:12 Dose: 500 mg Admin: 07/18/19 07:34 Dose: 500 mg Admin: 07/17/19 17:12 Dose: 500 mg Admin: 07/17/19 07:34 Dose: 500 mg Admin: 07/16/19 17:18 Dose: 500 mg Admin: 07/16/19 07:34 Dose: 500 mg Admin: 07/15/19 17:35 Dose: 500 mg Admin: 07/15/19 08:04 Dose: 500 mg Admin: 07/14/19 17:48 Dose: 500 mg Admin: 07/14/19 08:01 Dose: 500 mg Admin: 07/13/19 17:52 Dose: 500 mg Admin: 07/13/19 08:00 Dose: 500 mg Admin: 07/12/19 17:10 Dose: 500 mg Admin: 07/12/19 07:29 Dose: 500 mg Admin: 07/11/19 17:29 Dose: 500 mg Admin: 07/11/19 07:53 Dose: 500 mg Admin: 07/10/19 17:23 Dose: 500 mg Admin: 07/10/19 08:02 Dose: 500 mg Admin: 07/09/19 17:14 Dose: 500 mg Admin: 07/09/19 07:25 Dose: 500 mg Admin: 07/08/19 17:14 Dose: 500 mg Admin: 07/08/19 07:26 Dose: 500 mg Admin: 07/07/19 17:40 Dose: 500 mg Admin: 07/07/19 08:03 Dose: 500 mg Admin: 07/06/19 17:32 Dose: 500 mg Admin: 07/06/19 07:56 Dose: 500 mg Admin: 07/05/19 17:17 Dose: 500 mg Admin: 07/05/19 07:47 Dose: 500 mg Admin: 07/04/19 18:10 Dose: 500 mg Admin: 07/04/19 07:28 Dose: 500 mg Admin: 07/03/19 17:11 Dose: 500 mg Admin: 07/03/19 07:48 Dose: 500 mg Admin: 07/02/19 17:45 Dose: 500 mg Admin: 07/02/19 08:27 Dose: 500 mg Admin: 07/01/19 17:32 Dose: 500 mg Admin: 07/01/19 08:25 Dose: 500 mg Admin: 06/30/19 17:25 Dose: 500 mg Admin: 06/30/19 08:10 Dose: 500 mg Admin: 06/29/19 17:37 Dose: 500 mg Admin: 06/29/19 07:49 Dose: 500 mg Admin: 06/28/19 17:54 Dose: 500 mg Admin: 06/28/19 07:52 Dose: 500 mg Admin: 06/27/19 17:57 Dose: 500 mg Admin: 06/27/19 07:53 Dose: 500 mg Admin: 06/26/19 17:47 Dose: 500 mg Admin: 06/26/19 08:02 Dose: 500 mg Admin: 06/25/19 17:47 Dose: 500 mg Admin: 06/25/19 08:11 Dose: 500 mg Admin: 06/24/19 17:21 Dose: 500 mg Admin: 06/24/19 07:45 Dose: 500 mg Admin: 06/23/19 17:47 Dose: 500 mg Admin: 06/23/19 08:12 Dose: 500 mg Admin: 06/22/19 17:19 Dose: 500 mg Admin: 06/22/19 07:34 Dose: 500 mg Admin: 06/21/19 17:19 Dose: 500 mg Admin: 06/21/19 07:22 Dose: 500 mg Admin: 06/20/19 17:08 Dose: 500 mg Admin: 06/20/19 07:20 Dose: 500 mg Admin: 06/19/19 17:24 Dose: 500 mg Admin: 06/19/19 07:25 Dose: 500 mg Admin: 06/18/19 17:05 Dose: 500 mg Admin: 06/18/19 08:06 Dose: 500 mg Admin: 06/17/19 17:55 Dose: 500 mg Admin: 06/17/19 07:52 Dose: 500 mg Admin: 06/16/19 17:47 Dose: 500 mg Admin: 06/16/19 07:49 Dose: 500 mg Admin: 06/15/19 17:04 Dose: 500 mg Admin: 06/15/19 07:19 Dose: 500 mg Admin: 06/14/19 17:37 Dose: 500 mg Admin: 06/14/19 08:31 Dose: 500 mg Admin: 06/13/19 17:03 Dose: 500 mg Admin: 06/13/19 08:23 Dose: 500 mg Admin: 06/12/19 18:08 Dose: 500 mg Admin: 06/12/19 08:58 Dose: 500 mg Admin: 06/11/19 17:53 Dose: 500 mg Admin: 06/11/19 08:34 Dose: 500 mg Admin: 06/10/19 17:56 Dose: 500 mg Admin: 06/10/19 07:57 Dose: 500 mg Admin: 06/09/19 18:04 Dose: 500 mg Admin: 06/09/19 08:04 Dose: 500 mg Admin: 06/08/19 17:10 Dose: 500 mg Admin: 06/08/19 07:14 Dose: 500 mg Admin: 06/07/19 17:10 Dose: 500 mg Admin: 06/07/19 07:26 Dose: 500 mg Admin: 06/06/19 17:11 Dose: 500 mg Admin: 06/06/19 07:24 Dose: 500 mg Admin: 06/05/19 17:09 Dose: 500 mg Admin: 06/05/19 07:25 Dose: 500 mg Admin: 06/04/19 17:59 Dose: 500 mg Admin: 06/04/19 08:13 Dose: 500 mg Admin: 06/03/19 18:00 Dose: 500 mg Admin: 06/03/19 08:28 Dose: 500 mg Admin: 06/02/19 17:15 Dose: 500 mg Admin: 06/02/19 07:20 Dose: 500 mg Admin: 06/01/19 17:13 Dose: 500 mg Admin: 06/01/19 08:32 Dose: 500 mg Admin: 05/31/19 18:07 Dose: 500 mg Admin: 05/31/19 07:41 Dose: 500 mg Admin: 05/30/19 18:05 Dose: 500 mg Admin: 05/30/19 08:06 Dose: 500 mg Admin: 05/29/19 17:41 Dose: 500 mg Admin: 05/29/19 08:07 Dose: 500 mg Admin: 05/28/19 17:23 Dose: 500 mg Admin: 05/28/19 07:25 Dose: 500 mg Admin: 05/27/19 17:54 Dose: 500 mg Admin: 05/27/19 08:09 Dose: 500 mg Admin: 05/26/19 17:52 Dose: 500 mg Admin: 05/26/19 08:24 Dose: 500 mg Admin: 05/25/19 17:54 Dose: 500 mg Admin: 05/25/19 08:27 Dose: 500 mg Admin: 05/24/19 17:51 Dose: 500 mg Levothyroxine Sodium (137 Mcg Tablet) 137 mcg PO BEDTIME MIESHA Last Admin: 08/25/19 19:27 Dose: 137 mcg Admin: 08/24/19 19:17 Dose: 137 mcg Admin: 08/23/19 19:10 Dose: 137 mcg Admin: 08/22/19 19:10 Dose: 137 mcg Admin: 08/21/19 19:29 Dose: 137 mcg Admin: 08/20/19 19:05 Dose: 137 mcg Admin: 08/19/19 19:22 Dose: 137 mcg Admin: 08/18/19 19:40 Dose: 137 mcg Admin: 08/17/19 19:24 Dose: 137 mcg Admin: 08/16/19 19:12 Dose: 137 mcg Admin: 08/15/19 19:16 Dose: 137 mcg Admin: 08/14/19 19:18 Dose: 137 mcg Admin: 08/13/19 19:22 Dose: 137 mcg Admin: 08/12/19 19:09 Dose: 137 mcg Admin: 08/11/19 19:17 Dose: 137 mcg Admin: 08/10/19 19:04 Dose: 137 mcg Admin: 08/09/19 19:33 Dose: 137 mcg Admin: 08/08/19 19:48 Dose: 137 mcg Admin: 08/07/19 19:43 Dose: 137 mcg Admin: 08/06/19 19:32 Dose: 137 mcg Admin: 08/05/19 19:20 Dose: 137 mcg Admin: 08/04/19 19:12 Dose: 137 mcg Admin: 08/03/19 19:38 Dose: 137 mcg Admin: 08/02/19 19:15 Dose: 137 mcg Admin: 08/01/19 19:05 Dose: 137 mcg Admin: 07/31/19 19:29 Dose: 137 mcg Admin: 07/30/19 19:24 Dose: 137 mcg Admin: 07/29/19 19:30 Dose: 137 mcg Admin: 07/28/19 19:15 Dose: 137 mcg Admin: 07/27/19 19:22 Dose: 137 mcg Admin: 07/26/19 19:37 Dose: 137 mcg Admin: 07/25/19 19:48 Dose: 137 mcg Admin: 07/24/19 19:28 Dose: 137 mcg Admin: 07/23/19 19:32 Dose: 137 mcg Admin: 07/22/19 19:27 Dose: 137 mcg Admin: 07/21/19 19:34 Dose: 137 mcg Admin: 07/20/19 19:18 Dose: 137 mcg Admin: 07/19/19 19:19 Dose: 137 mcg Admin: 07/18/19 19:36 Dose: 137 mcg Admin: 07/17/19 19:17 Dose: 137 mcg Admin: 07/16/19 19:40 Dose: 137 mcg Admin: 07/15/19 19:11 Dose: 137 mcg Admin: 07/14/19 19:22 Dose: 137 mcg Admin: 07/13/19 19:21 Dose: 137 mcg Admin: 07/12/19 19:25 Dose: 137 mcg Admin: 07/11/19 19:26 Dose: 137 mcg Admin: 07/10/19 19:25 Dose: 137 mcg Admin: 07/09/19 19:17 Dose: 137 mcg Admin: 07/08/19 19:25 Dose: 137 mcg Admin: 07/07/19 19:16 Dose: 137 mcg Admin: 07/06/19 19:25 Dose: 137 mcg Admin: 07/05/19 19:53 Dose: 137 mcg Admin: 07/04/19 19:23 Dose: 137 mcg Admin: 07/03/19 19:12 Dose: 137 mcg Admin: 07/02/19 19:18 Dose: 137 mcg Admin: 07/01/19 19:19 Dose: 137 mcg Admin: 06/30/19 19:12 Dose: 137 mcg Admin: 06/29/19 19:16 Dose: 137 mcg Admin: 06/28/19 19:07 Dose: 137 mcg Admin: 06/27/19 19:09 Dose: 137 mcg Admin: 06/26/19 19:07 Dose: 137 mcg Admin: 06/25/19 19:25 Dose: 137 mcg Admin: 06/24/19 19:11 Dose: 137 mcg Admin: 06/23/19 19:09 Dose: 137 mcg Admin: 06/22/19 19:17 Dose: 137 mcg Admin: 06/21/19 19:18 Dose: 137 mcg Admin: 06/20/19 19:21 Dose: 137 mcg Admin: 06/19/19 19:15 Dose: 137 mcg Admin: 06/18/19 19:18 Dose: 137 mcg Admin: 06/17/19 19:14 Dose: 137 mcg Admin: 06/16/19 19:08 Dose: 137 mcg Admin: 06/15/19 19:43 Dose: 137 mcg Admin: 06/14/19 19:18 Dose: 137 mcg Admin: 06/13/19 19:18 Dose: 137 mcg Admin: 06/12/19 19:22 Dose: 137 mcg Admin: 06/11/19 19:29 Dose: 137 mcg Admin: 06/10/19 19:15 Dose: 137 mcg Admin: 06/09/19 19:32 Dose: 137 mcg Admin: 06/08/19 19:12 Dose: 137 mcg Admin: 06/07/19 19:13 Dose: 137 mcg Admin: 06/06/19 19:16 Dose: 137 mcg Admin: 06/05/19 19:22 Dose: 137 mcg Admin: 06/04/19 19:20 Dose: 137 mcg Admin: 06/03/19 19:21 Dose: 137 mcg Admin: 06/02/19 19:58 Dose: 137 mcg Admin: 06/01/19 19:24 Dose: 137 mcg Admin: 05/31/19 20:02 Dose: 137 mcg Admin: 05/30/19 19:16 Dose: 137 mcg Admin: 05/29/19 19:08 Dose: 137 mcg Admin: 05/28/19 19:17 Dose: 137 mcg Admin: 05/27/19 19:19 Dose: 137 mcg Admin: 05/26/19 19:49 Dose: 137 mcg Admin: 05/25/19 19:12 Dose: 137 mcg Admin: 05/24/19 19:29 Dose: 137 mcg Potassium Chloride (Klor-Con M20) 40 meq PO TID MIESHA Last Admin: 08/26/19 08:01 Dose: 40 meq Admin: 08/25/19 17:15 Dose: 40 meq Admin: 08/25/19 11:53 Dose: 40 meq Admin: 08/25/19 07:58 Dose: 40 meq Admin: 08/24/19 17:38 Dose: 40 meq Admin: 08/24/19 11:56 Dose: 40 meq Admin: 08/24/19 08:15 Dose: 40 meq Admin: 08/23/19 17:10 Dose: 40 meq Admin: 08/23/19 11:22 Dose: 40 meq Admin: 08/23/19 07:30 Dose: 40 meq Admin: 08/22/19 17:10 Dose: 40 meq Admin: 08/22/19 11:30 Dose: 40 meq Admin: 08/22/19 08:09 Dose: 40 meq Admin: 08/21/19 17:41 Dose: 40 meq Admin: 08/21/19 12:59 Dose: 40 meq Admin: 08/21/19 07:54 Dose: 40 meq Admin: 08/20/19 17:39 Dose: 40 meq Admin: 08/20/19 11:47 Dose: 40 meq Admin: 08/20/19 07:55 Dose: 40 meq Admin: 08/19/19 17:04 Dose: 40 meq Admin: 08/19/19 11:15 Dose: 40 meq Admin: 08/19/19 07:13 Dose: 40 meq Admin: 08/18/19 17:12 Dose: 40 meq Admin: 08/18/19 11:25 Dose: 40 meq Admin: 08/18/19 07:28 Dose: 40 meq Admin: 08/17/19 17:51 Dose: 40 meq Admin: 08/17/19 11:14 Dose: 40 meq Admin: 08/17/19 07:49 Dose: 40 meq Admin: 08/16/19 17:12 Dose: 40 meq Admin: 08/16/19 11:22 Dose: 40 meq Admin: 08/16/19 07:34 Dose: 40 meq Admin: 08/15/19 17:14 Dose: 40 meq Admin: 08/15/19 11:13 Dose: 40 meq Admin: 08/15/19 07:36 Dose: 40 meq Admin: 08/14/19 17:09 Dose: 40 meq Admin: 08/14/19 11:34 Dose: 40 meq Admin: 08/14/19 07:51 Dose: 40 meq Admin: 08/13/19 17:43 Dose: 40 meq Admin: 08/13/19 11:36 Dose: 40 meq Admin: 08/13/19 07:57 Dose: 40 meq Admin: 08/12/19 17:36 Dose: 40 meq Admin: 08/12/19 11:41 Dose: 40 meq Admin: 08/12/19 07:51 Dose: 40 meq Admin: 08/11/19 17:32 Dose: 40 meq Admin: 08/11/19 12:31 Dose: 40 meq Admin: 08/11/19 07:25 Dose: 40 meq Admin: 08/10/19 17:39 Dose: 40 meq Admin: 08/10/19 12:00 Dose: 40 meq Admin: 08/10/19 07:45 Dose: 40 meq Admin: 08/09/19 17:20 Dose: 40 meq Admin: 08/09/19 11:12 Dose: 40 meq Admin: 08/09/19 07:35 Dose: 40 meq Admin: 08/08/19 17:07 Dose: 40 meq Admin: 08/08/19 11:17 Dose: 40 meq Admin: 08/08/19 07:15 Dose: 40 meq Admin: 08/07/19 17:15 Dose: 40 meq Admin: 08/07/19 11:19 Dose: 40 meq Admin: 08/07/19 07:32 Dose: 40 meq Admin: 08/06/19 17:10 Dose: 40 meq Admin: 08/06/19 11:15 Dose: 40 meq Admin: 08/06/19 07:27 Dose: 40 meq Admin: 08/05/19 17:45 Dose: 40 meq Admin: 08/05/19 11:30 Dose: 40 meq Admin: 08/05/19 07:52 Dose: 40 meq Admin: 08/04/19 17:11 Dose: 40 meq Admin: 08/04/19 11:08 Dose: 40 meq Admin: 08/04/19 07:48 Dose: 40 meq Admin: 08/03/19 17:34 Dose: 40 meq Simvastatin (Zocor) 10 mg PO BEDTIME MIESHA Last Admin: 08/25/19 19:28 Dose: 10 mg Admin: 08/24/19 19:17 Dose: 10 mg Admin: 08/23/19 19:10 Dose: 10 mg Admin: 08/22/19 19:10 Dose: 10 mg Admin: 08/21/19 19:29 Dose: 10 mg Admin: 08/20/19 19:06 Dose: 10 mg Admin: 08/19/19 19:22 Dose: 10 mg Admin: 08/18/19 19:41 Dose: 10 mg Admin: 08/17/19 19:24 Dose: 10 mg Admin: 08/16/19 19:12 Dose: 10 mg Admin: 08/15/19 19:16 Dose: 10 mg Admin: 08/14/19 19:18 Dose: 10 mg Admin: 08/13/19 19:23 Dose: 10 mg Admin: 08/12/19 19:09 Dose: 10 mg Admin: 08/11/19 19:17 Dose: 10 mg Admin: 08/10/19 19:04 Dose: 10 mg Admin: 08/09/19 19:33 Dose: 10 mg Admin: 08/08/19 19:48 Dose: 10 mg Admin: 08/07/19 19:44 Dose: 10 mg Admin: 08/06/19 19:36 Dose: 10 mg Admin: 08/05/19 19:20 Dose: 10 mg Admin: 08/04/19 19:11 Dose: 10 mg Admin: 08/03/19 19:38 Dose: 10 mg Admin: 08/02/19 19:14 Dose: 10 mg Admin: 08/01/19 19:09 Dose: 10 mg Admin: 07/31/19 19:32 Dose: 10 mg Admin: 07/30/19 19:25 Dose: 10 mg Admin: 07/29/19 19:32 Dose: 10 mg Admin: 07/28/19 19:18 Dose: 10 mg Admin: 07/27/19 19:22 Dose: 10 mg Admin: 07/26/19 19:40 Dose: 10 mg Admin: 07/25/19 19:50 Dose: 10 mg Admin: 07/24/19 19:33 Dose: 10 mg Admin: 07/23/19 19:32 Dose: 10 mg Admin: 07/22/19 19:27 Dose: 10 mg Admin: 07/21/19 19:34 Dose: 10 mg Admin: 07/20/19 19:25 Dose: 10 mg Admin: 07/19/19 19:19 Dose: 10 mg Admin: 07/18/19 19:37 Dose: 10 mg Admin: 07/17/19 19:17 Dose: 10 mg Admin: 07/16/19 19:41 Dose: 10 mg Admin: 07/15/19 19:10 Dose: 10 mg Admin: 07/14/19 19:21 Dose: 10 mg Admin: 07/13/19 19:21 Dose: 10 mg Admin: 07/12/19 19:26 Dose: 10 mg Admin: 07/11/19 19:26 Dose: 10 mg Admin: 07/10/19 19:25 Dose: 10 mg Admin: 07/09/19 19:17 Dose: 10 mg Admin: 07/08/19 19:26 Dose: 10 mg Admin: 07/07/19 19:18 Dose: 10 mg Admin: 07/06/19 19:26 Dose: 10 mg Admin: 07/05/19 19:53 Dose: 10 mg Admin: 07/04/19 19:23 Dose: 10 mg Admin: 07/03/19 19:12 Dose: 10 mg Admin: 07/02/19 19:18 Dose: 10 mg Admin: 07/01/19 19:19 Dose: 10 mg Admin: 06/30/19 19:12 Dose: 10 mg Admin: 06/29/19 19:16 Dose: 10 mg Admin: 06/28/19 19:11 Dose: 10 mg Admin: 06/27/19 19:09 Dose: 10 mg Admin: 06/26/19 19:06 Dose: 10 mg Admin: 06/25/19 19:25 Dose: 10 mg Admin: 06/24/19 19:10 Dose: 10 mg Admin: 06/23/19 19:09 Dose: 10 mg Admin: 06/22/19 19:18 Dose: 10 mg Admin: 06/21/19 19:18 Dose: 10 mg Admin: 06/20/19 19:22 Dose: 10 mg Admin: 06/19/19 19:15 Dose: 10 mg Admin: 06/18/19 19:17 Dose: 10 mg Admin: 06/17/19 19:14 Dose: 10 mg Admin: 06/16/19 19:08 Dose: 10 mg Admin: 06/15/19 19:43 Dose: 10 mg Admin: 06/14/19 19:20 Dose: 10 mg Admin: 06/13/19 19:18 Dose: 10 mg Admin: 06/12/19 19:22 Dose: 10 mg Admin: 06/11/19 19:29 Dose: 10 mg Admin: 06/10/19 19:15 Dose: 10 mg Admin: 06/09/19 19:32 Dose: 10 mg Admin: 06/08/19 19:13 Dose: 10 mg Admin: 06/07/19 19:13 Dose: 10 mg Admin: 06/06/19 19:16 Dose: 10 mg Admin: 06/05/19 19:21 Dose: 10 mg Admin: 06/04/19 19:21 Dose: 10 mg Admin: 06/03/19 19:21 Dose: 10 mg Admin: 06/02/19 19:58 Dose: 10 mg Admin: 06/01/19 19:24 Dose: 10 mg Admin: 05/31/19 20:03 Dose: 10 mg Admin: 05/30/19 19:16 Dose: 10 mg Admin: 05/29/19 19:08 Dose: 10 mg Admin: 05/28/19 19:16 Dose: 10 mg Admin: 05/27/19 19:19 Dose: 10 mg Admin: 05/26/19 19:48 Dose: 10 mg Admin: 05/25/19 19:12 Dose: 10 mg Admin: 05/24/19 19:29 Dose: 10 mg Assessment/Plan Comment:: As above. Patient is released for planned diagnostic colonoscopy with Dr. Jaime within the next 30 days. Extensive precautions were given to the patient and nursing staff, who are in agreement with the treatment plan. Patient is also recertified for an additional 2 months of swing bed care with chronic placement secondary to multiple illnesses as above. - Mortality Measure Prognosis:: Good
[2019-08-26] MEDS: Acetaminophen 325 MG Tab PO PRN (18:14)
[2019-08-26] MEDS: Levothyroxine Sodium 137 MCG TABLET PO SCH (19:20)
[2019-08-26] MEDS: Simvastatin 10 MG Tab PO SCH (19:21)
[2019-08-26] MEDS: IBUPROFEN 600 MG PO PRN (19:21)
[2019-08-26] MEDS: buPROPion 100 MG Tab PO SCH (19:21)
[2019-08-27] MEDS: Furosemide 20 MG Tab PO SCH (07:59)
[2019-08-27] MEDS: Citalopram 20 MG Tab PO SCH (07:59)
[2019-08-27] MEDS: Potassium Chloride 20 MEQ Tab.ER PO SCH ×3 (07:59→17:22)
[2019-08-27] MEDS: Fludrocortisone 0.1 MG Tab PO SCH ×2 (07:59→19:16)
[2019-08-27] MEDS: Albuterol/Ipratropium 3.0-0.5 MG/3 ML Neb Soln NEB SCH ×2 (08:00→19:16)
[2019-08-27] MEDS: Cyanocobalamin (Vitamin B12) 1,000 MCG Tab PO SCH (08:00)
[2019-08-27] MEDS: Niacin 500 MG Tab PO SCH ×2 (08:00→17:23)
[2019-08-27] MEDS: Cholecalciferol (Vitamin D3) 25 MCG Tab PO SCH (08:01)
[2019-08-27] MEDS: Acetaminophen 325 MG Tab PO PRN ×2 (10:04→18:22)
[2019-08-27] MEDS: IBUPROFEN 600 MG PO PRN (16:20)
[2019-08-27] MEDS: buPROPion 100 MG Tab PO SCH (19:16)
[2019-08-27] MEDS: Levothyroxine Sodium 137 MCG TABLET PO SCH (19:16)
[2019-08-27] MEDS: Simvastatin 10 MG Tab PO SCH (19:16)
[2019-08-28] MEDS: Acetaminophen 325 MG Tab PO PRN (03:51)
[2019-08-28] MEDS: Citalopram 20 MG Tab PO SCH (07:45)
[2019-08-28] MEDS: Albuterol/Ipratropium 3.0-0.5 MG/3 ML Neb Soln NEB SCH ×2 (07:46→19:26)
[2019-08-28] MEDS: Potassium Chloride 20 MEQ Tab.ER PO SCH ×3 (07:46→17:50)
[2019-08-28] MEDS: Fludrocortisone 0.1 MG Tab PO SCH ×2 (07:46→19:26)
[2019-08-28] MEDS: Furosemide 20 MG Tab PO SCH (07:47)
[2019-08-28] MEDS: Niacin 500 MG Tab PO SCH ×2 (07:47→17:50)
[2019-08-28] MEDS: Cyanocobalamin (Vitamin B12) 1,000 MCG Tab PO SCH (07:48)
[2019-08-28] MEDS: Cholecalciferol (Vitamin D3) 25 MCG Tab PO SCH (07:48)
[2019-08-28] MEDS: IBUPROFEN 600 MG PO PRN (17:51)
[2019-08-28] MEDS: buPROPion 100 MG Tab PO SCH (19:26)
[2019-08-28] MEDS: Simvastatin 10 MG Tab PO SCH (19:26)
[2019-08-28] MEDS: Levothyroxine Sodium 137 MCG TABLET PO SCH (19:26)
[2019-08-29] MEDS: Albuterol/Ipratropium 3.0-0.5 MG/3 ML Neb Soln NEB SCH ×2 (07:29→19:11)
[2019-08-29] MEDS: Citalopram 20 MG Tab PO SCH (07:29)
[2019-08-29] MEDS: Potassium Chloride 20 MEQ Tab.ER PO SCH ×3 (07:29→17:08)
[2019-08-29] MEDS: Fludrocortisone 0.1 MG Tab PO SCH ×2 (07:29→19:11)
[2019-08-29] MEDS: Furosemide 20 MG Tab PO SCH (07:30)
[2019-08-29] MEDS: Cyanocobalamin (Vitamin B12) 1,000 MCG Tab PO SCH (07:30)
[2019-08-29] MEDS: Cholecalciferol (Vitamin D3) 25 MCG Tab PO SCH (07:30)
[2019-08-29] MEDS: Niacin 500 MG Tab PO SCH ×2 (07:30→17:08)
[2019-08-29] MEDS: IBUPROFEN 600 MG PO PRN ×2 (07:37→17:07)
[2019-08-29] MEDS: Acetaminophen 325 MG Tab PO PRN ×2 (11:14→19:12)
[2019-08-29] MEDS: buPROPion 100 MG Tab PO SCH (19:11)
[2019-08-29] MEDS: Levothyroxine Sodium 137 MCG TABLET PO SCH (19:11)
[2019-08-29] MEDS: Simvastatin 10 MG Tab PO SCH (19:11)
[2019-08-30] MEDS: Acetaminophen 325 MG Tab PO PRN ×3 (05:02→19:33)
[2019-08-30] MEDS: IBUPROFEN 600 MG PO PRN ×2 (07:26→17:03)
[2019-08-30] MEDS: Potassium Chloride 20 MEQ Tab.ER PO SCH ×3 (07:27→17:02)
[2019-08-30] MEDS: Fludrocortisone 0.1 MG Tab PO SCH ×2 (07:27→19:28)
[2019-08-30] MEDS: Citalopram 20 MG Tab PO SCH (07:27)
[2019-08-30] MEDS: Albuterol/Ipratropium 3.0-0.5 MG/3 ML Neb Soln NEB SCH ×2 (07:27→19:28)
[2019-08-30] MEDS: Niacin 500 MG Tab PO SCH ×2 (07:28→17:03)
[2019-08-30] MEDS: Cholecalciferol (Vitamin D3) 25 MCG Tab PO SCH (07:28)
[2019-08-30] MEDS: Furosemide 20 MG Tab PO SCH (07:28)
[2019-08-30] MEDS: Cyanocobalamin (Vitamin B12) 1,000 MCG Tab PO SCH (07:28)
[2019-08-30] MEDS: Simvastatin 10 MG Tab PO SCH (19:28)
[2019-08-30] MEDS: buPROPion 100 MG Tab PO SCH (19:28)
[2019-08-30] MEDS: Levothyroxine Sodium 137 MCG TABLET PO SCH (19:28)
[2019-08-31] MEDS: Albuterol/Ipratropium 3.0-0.5 MG/3 ML Neb Soln NEB SCH ×2 (07:47→19:39)
[2019-08-31] MEDS: Citalopram 20 MG Tab PO SCH (07:47)
[2019-08-31] MEDS: Furosemide 20 MG Tab PO SCH (07:48)
[2019-08-31] MEDS: Fludrocortisone 0.1 MG Tab PO SCH ×2 (07:48→19:40)
[2019-08-31] MEDS: Potassium Chloride 20 MEQ Tab.ER PO SCH ×3 (07:48→17:11)
[2019-08-31] MEDS: Niacin 500 MG Tab PO SCH ×2 (07:49→17:11)
[2019-08-31] MEDS: Cholecalciferol (Vitamin D3) 25 MCG Tab PO SCH (07:49)
[2019-08-31] MEDS: Cyanocobalamin (Vitamin B12) 1,000 MCG Tab PO SCH (07:49)
[2019-08-31] MEDS: IBUPROFEN 600 MG PO PRN (07:50)
[2019-08-31] MEDS: Levothyroxine Sodium 137 MCG TABLET PO SCH (19:40)
[2019-08-31] MEDS: buPROPion 100 MG Tab PO SCH (19:40)
[2019-08-31] MEDS: Simvastatin 10 MG Tab PO SCH (19:40)
[2019-08-31] MEDS: Acetaminophen 325 MG Tab PO PRN (19:41)
[2019-09-01] MEDS: IBUPROFEN 600 MG PO PRN ×2 (01:28→07:31)
[2019-09-01] MEDS: Albuterol/Ipratropium 3.0-0.5 MG/3 ML Neb Soln NEB SCH ×2 (07:30→19:18)
[2019-09-01] MEDS: Citalopram 20 MG Tab PO SCH (07:31)
[2019-09-01] MEDS: Potassium Chloride 20 MEQ Tab.ER PO SCH ×3 (07:32→17:05)
[2019-09-01] MEDS: Furosemide 20 MG Tab PO SCH (07:32)
[2019-09-01] MEDS: Fludrocortisone 0.1 MG Tab PO SCH ×2 (07:32→19:18)
[2019-09-01] MEDS: Niacin 500 MG Tab PO SCH ×2 (07:32→17:05)
[2019-09-01] MEDS: Cholecalciferol (Vitamin D3) 25 MCG Tab PO SCH (07:33)
[2019-09-01] MEDS: Cyanocobalamin (Vitamin B12) 1,000 MCG Tab PO SCH (07:33)
[2019-09-01] MEDS: Acetaminophen 325 MG Tab PO PRN (19:16)
[2019-09-01] MEDS: Simvastatin 10 MG Tab PO SCH (19:18)
[2019-09-01] MEDS: Levothyroxine Sodium 137 MCG TABLET PO SCH (19:18)
[2019-09-01] MEDS: buPROPion 100 MG Tab PO SCH (19:18)
[2019-09-02] MEDS: IBUPROFEN 600 MG PO PRN ×2 (03:50→19:18)
[2019-09-02] MEDS: Potassium Chloride 20 MEQ Tab.ER PO SCH ×3 (08:33→17:52)
[2019-09-02] MEDS: Fludrocortisone 0.1 MG Tab PO SCH ×2 (08:33→19:17)
[2019-09-02] MEDS: Citalopram 20 MG Tab PO SCH (08:33)
[2019-09-02] MEDS: Furosemide 20 MG Tab PO SCH (08:34)
[2019-09-02] MEDS: Niacin 500 MG Tab PO SCH ×2 (08:35→17:53)
[2019-09-02] MEDS: Cholecalciferol (Vitamin D3) 25 MCG Tab PO SCH (08:35)
[2019-09-02] MEDS: Cyanocobalamin (Vitamin B12) 1,000 MCG Tab PO SCH (08:35)
[2019-09-02] MEDS: Albuterol/Ipratropium 3.0-0.5 MG/3 ML Neb Soln NEB SCH ×2 (08:36→19:14)
[2019-09-02] MEDS: Acetaminophen 325 MG Tab PO PRN (14:58)
[2019-09-02] MEDS: Simvastatin 10 MG Tab PO SCH (19:16)
[2019-09-02] MEDS: buPROPion 100 MG Tab PO SCH (19:16)
[2019-09-02] MEDS: Levothyroxine Sodium 137 MCG TABLET PO SCH (19:17)
[2019-09-03] MEDS: Cholecalciferol (Vitamin D3) 25 MCG Tab PO SCH (07:39)
[2019-09-03] MEDS: Albuterol/Ipratropium 3.0-0.5 MG/3 ML Neb Soln NEB SCH ×2 (07:39→19:28)
[2019-09-03] MEDS: Cyanocobalamin (Vitamin B12) 1,000 MCG Tab PO SCH (07:40)
[2019-09-03] MEDS: Niacin 500 MG Tab PO SCH ×2 (07:40→17:06)
[2019-09-03] MEDS: Acetaminophen 325 MG Tab PO PRN ×2 (07:41→14:14)
[2019-09-03] MEDS: Citalopram 20 MG Tab PO SCH (07:41)
[2019-09-03] MEDS: Fludrocortisone 0.1 MG Tab PO SCH ×2 (07:42→19:29)
[2019-09-03] MEDS: Furosemide 20 MG Tab PO SCH (07:42)
[2019-09-03] MEDS: Potassium Chloride 20 MEQ Tab.ER PO SCH ×4 (07:42→18:48)
[2019-09-03] MEDS: IBUPROFEN 600 MG PO PRN (19:29)
[2019-09-03] MEDS: buPROPion 100 MG Tab PO SCH (19:29)
[2019-09-03] MEDS: Levothyroxine Sodium 137 MCG TABLET PO SCH (19:29)
[2019-09-03] MEDS: Simvastatin 10 MG Tab PO SCH (19:29)
[2019-09-04] MEDS: Acetaminophen 325 MG Tab PO PRN ×3 (02:09→19:37)
[2019-09-04] MEDS: Fludrocortisone 0.1 MG Tab PO SCH ×2 (07:21→19:35)
[2019-09-04] MEDS: Furosemide 20 MG Tab PO SCH (07:21)
[2019-09-04] MEDS: Potassium Chloride 20 MEQ Tab.ER PO SCH ×3 (07:21→17:14)
[2019-09-04] MEDS: Niacin 500 MG Tab PO SCH ×2 (07:22→17:14)
[2019-09-04] MEDS: Albuterol/Ipratropium 3.0-0.5 MG/3 ML Neb Soln NEB SCH ×2 (07:22→19:35)
[2019-09-04] MEDS: Citalopram 20 MG Tab PO SCH (07:22)
[2019-09-04] MEDS: Cyanocobalamin (Vitamin B12) 1,000 MCG Tab PO SCH (07:23)
[2019-09-04] MEDS: Cholecalciferol (Vitamin D3) 25 MCG Tab PO SCH (07:29)
[2019-09-04] MEDS: Levothyroxine Sodium 137 MCG TABLET PO SCH (19:35)
[2019-09-04] MEDS: DIPHENOXYLATE PO PRN (19:36)
[2019-09-04] MEDS: Simvastatin 10 MG Tab PO SCH (19:36)
[2019-09-04] MEDS: buPROPion 100 MG Tab PO SCH (19:36)
[2019-09-04] MEDS: ATROPINE PO PRN (19:36)
[2019-09-05] MEDS: Furosemide 20 MG Tab PO SCH (07:29)
[2019-09-05] MEDS: Niacin 500 MG Tab PO SCH ×2 (07:29→17:05)
[2019-09-05] MEDS: Citalopram 20 MG Tab PO SCH (07:29)
[2019-09-05] MEDS: Potassium Chloride 20 MEQ Tab.ER PO SCH ×3 (07:29→17:04)
[2019-09-05] MEDS: Fludrocortisone 0.1 MG Tab PO SCH ×2 (07:29→19:44)
[2019-09-05] MEDS: Cholecalciferol (Vitamin D3) 25 MCG Tab PO SCH (07:30)
[2019-09-05] MEDS: Albuterol/Ipratropium 3.0-0.5 MG/3 ML Neb Soln NEB SCH ×2 (07:30→19:44)
[2019-09-05] MEDS: Cyanocobalamin (Vitamin B12) 1,000 MCG Tab PO SCH (07:30)
[2019-09-05] MEDS: Acetaminophen 325 MG Tab PO PRN ×2 (17:05→23:40)
[2019-09-05] MEDS: IBUPROFEN 600 MG PO PRN (19:45)
[2019-09-05] MEDS: buPROPion 100 MG Tab PO SCH (19:45)
[2019-09-05] MEDS: Simvastatin 10 MG Tab PO SCH (19:45)
[2019-09-05] MEDS: Levothyroxine Sodium 137 MCG TABLET PO SCH (19:45)
[2019-09-06] MEDS: Citalopram 20 MG Tab PO SCH (08:07)
[2019-09-06] MEDS: Fludrocortisone 0.1 MG Tab PO SCH ×2 (08:07→19:12)
[2019-09-06] MEDS: Potassium Chloride 20 MEQ Tab.ER PO SCH ×3 (08:07→18:05)
[2019-09-06] MEDS: Albuterol/Ipratropium 3.0-0.5 MG/3 ML Neb Soln NEB SCH ×2 (08:07→19:12)
[2019-09-06] MEDS: Furosemide 20 MG Tab PO SCH (08:07)
[2019-09-06] MEDS: Niacin 500 MG Tab PO SCH ×2 (08:07→18:05)
[2019-09-06] MEDS: Cholecalciferol (Vitamin D3) 25 MCG Tab PO SCH (08:08)
[2019-09-06] MEDS: Cyanocobalamin (Vitamin B12) 1,000 MCG Tab PO SCH (08:08)
[2019-09-06] MEDS: IBUPROFEN 600 MG PO PRN (08:08)
[2019-09-06] MEDS: Acetaminophen 325 MG Tab PO PRN (19:10)
[2019-09-06] MEDS: buPROPion 100 MG Tab PO SCH (19:12)
[2019-09-06] MEDS: Simvastatin 10 MG Tab PO SCH (19:12)
[2019-09-06] MEDS: Levothyroxine Sodium 137 MCG TABLET PO SCH (19:12)
[2019-09-07] MEDS: IBUPROFEN 600 MG PO PRN ×2 (07:42→17:12)
[2019-09-07] MEDS: Fludrocortisone 0.1 MG Tab PO SCH ×2 (07:43→19:09)
[2019-09-07] MEDS: Potassium Chloride 20 MEQ Tab.ER PO SCH ×3 (07:43→17:12)
[2019-09-07] MEDS: Citalopram 20 MG Tab PO SCH (07:43)
[2019-09-07] MEDS: Albuterol/Ipratropium 3.0-0.5 MG/3 ML Neb Soln NEB SCH ×2 (07:43→19:09)
[2019-09-07] MEDS: Furosemide 20 MG Tab PO SCH (07:44)
[2019-09-07] MEDS: Niacin 500 MG Tab PO SCH ×2 (07:44→17:12)
[2019-09-07] MEDS: Cyanocobalamin (Vitamin B12) 1,000 MCG Tab PO SCH (07:45)
[2019-09-07] MEDS: Cholecalciferol (Vitamin D3) 25 MCG Tab PO SCH (07:45)
[2019-09-07] MEDS: Acetaminophen 325 MG Tab PO PRN (11:07)
[2019-09-07] MEDS: Levothyroxine Sodium 137 MCG TABLET PO SCH (19:09)
[2019-09-07] MEDS: Simvastatin 10 MG Tab PO SCH (19:09)
[2019-09-07] MEDS: buPROPion 100 MG Tab PO SCH (19:09)
[2019-09-08] MEDS: IBUPROFEN 600 MG PO PRN ×2 (07:19→17:08)
[2019-09-08] MEDS: Fludrocortisone 0.1 MG Tab PO SCH ×2 (07:22→19:38)
[2019-09-08] MEDS: Albuterol/Ipratropium 3.0-0.5 MG/3 ML Neb Soln NEB SCH ×2 (07:22→19:37)
[2019-09-08] MEDS: Citalopram 20 MG Tab PO SCH (07:22)
[2019-09-08] MEDS: Potassium Chloride 20 MEQ Tab.ER PO SCH ×3 (07:22→17:09)
[2019-09-08] MEDS: Cyanocobalamin (Vitamin B12) 1,000 MCG Tab PO SCH (07:23)
[2019-09-08] MEDS: Furosemide 20 MG Tab PO SCH (07:23)
[2019-09-08] MEDS: Cholecalciferol (Vitamin D3) 25 MCG Tab PO SCH (07:23)
[2019-09-08] MEDS: Niacin 500 MG Tab PO SCH ×2 (07:23→17:09)
[2019-09-08] MEDS: Aluminum Hydroxide/Magnesium Hydroxide/Simethicone Susp 30 ML Cup PO PRN (09:18)
[2019-09-08] MEDS: buPROPion 100 MG Tab PO SCH (19:38)
[2019-09-08] MEDS: Levothyroxine Sodium 137 MCG TABLET PO SCH (19:38)
[2019-09-08] MEDS: Simvastatin 10 MG Tab PO SCH (19:38)
[2019-09-08] MEDS: Acetaminophen 325 MG Tab PO PRN (19:39)
[2019-09-09] MEDS: Potassium Chloride 20 MEQ Tab.ER PO SCH ×3 (08:16→17:39)
[2019-09-09] MEDS: Albuterol/Ipratropium 3.0-0.5 MG/3 ML Neb Soln NEB SCH ×2 (08:16→19:20)
[2019-09-09] MEDS: Fludrocortisone 0.1 MG Tab PO SCH ×2 (08:16→19:20)
[2019-09-09] MEDS: Citalopram 20 MG Tab PO SCH (08:16)
[2019-09-09] MEDS: Cholecalciferol (Vitamin D3) 25 MCG Tab PO SCH (08:18)
[2019-09-09] MEDS: Niacin 500 MG Tab PO SCH ×2 (08:18→17:40)
[2019-09-09] MEDS: Cyanocobalamin (Vitamin B12) 1,000 MCG Tab PO SCH (08:18)
[2019-09-09] MEDS: Furosemide 20 MG Tab PO SCH (08:19)
[2019-09-09] MEDS: IBUPROFEN 600 MG PO PRN ×2 (08:20→19:21)
[2019-09-09] MEDS: Acetaminophen 325 MG Tab PO PRN (11:26)
[2019-09-09] MEDS: Levothyroxine Sodium 137 MCG TABLET PO SCH (19:20)
[2019-09-09] MEDS: buPROPion 100 MG Tab PO SCH (19:20)
[2019-09-09] MEDS: Simvastatin 10 MG Tab PO SCH (19:21)
[2019-09-10] MEDS: Albuterol/Ipratropium 3.0-0.5 MG/3 ML Neb Soln NEB SCH ×2 (08:07→19:30)
[2019-09-10] MEDS: Potassium Chloride 20 MEQ Tab.ER PO SCH ×3 (08:09→17:36)
[2019-09-10] MEDS: Fludrocortisone 0.1 MG Tab PO SCH ×2 (08:09→19:31)
[2019-09-10] MEDS: Citalopram 20 MG Tab PO SCH (08:09)
[2019-09-10] MEDS: Furosemide 20 MG Tab PO SCH (08:10)
[2019-09-10] MEDS: Niacin 500 MG Tab PO SCH ×2 (08:10→17:37)
[2019-09-10] MEDS: Cyanocobalamin (Vitamin B12) 1,000 MCG Tab PO SCH (08:11)
[2019-09-10] MEDS: Cholecalciferol (Vitamin D3) 25 MCG Tab PO SCH (08:11)
[2019-09-10] MEDS: IBUPROFEN 600 MG PO PRN ×2 (08:12→17:38)
[2019-09-10] MEDS: Aluminum Hydroxide/Magnesium Hydroxide/Simethicone Susp 30 ML Cup PO PRN (09:13)
[2019-09-10] MEDS: Acetaminophen 325 MG Tab PO PRN (19:30)
[2019-09-10] MEDS: Simvastatin 10 MG Tab PO SCH (19:31)
[2019-09-10] MEDS: buPROPion 100 MG Tab PO SCH (19:31)
[2019-09-10] MEDS: Levothyroxine Sodium 137 MCG TABLET PO SCH (19:31)
[2019-09-11] MEDS: Potassium Chloride 20 MEQ Tab.ER PO SCH ×3 (07:45→17:28)
[2019-09-11] MEDS: Fludrocortisone 0.1 MG Tab PO SCH ×2 (07:45→19:35)
[2019-09-11] MEDS: Citalopram 20 MG Tab PO SCH (07:45)
[2019-09-11] MEDS: Albuterol/Ipratropium 3.0-0.5 MG/3 ML Neb Soln NEB SCH ×2 (07:45→19:35)
[2019-09-11] MEDS: Furosemide 20 MG Tab PO SCH (07:46)
[2019-09-11] MEDS: Niacin 500 MG Tab PO SCH ×2 (07:46→17:28)
[2019-09-11] MEDS: Cholecalciferol (Vitamin D3) 25 MCG Tab PO SCH (07:47)
[2019-09-11] MEDS: Cyanocobalamin (Vitamin B12) 1,000 MCG Tab PO SCH (07:47)
[2019-09-11] MEDS: Acetaminophen 325 MG Tab PO PRN (19:34)
[2019-09-11] MEDS: Levothyroxine Sodium 137 MCG TABLET PO SCH (19:35)
[2019-09-11] MEDS: Simvastatin 10 MG Tab PO SCH (19:37)
[2019-09-11] MEDS: buPROPion 100 MG Tab PO SCH (19:37)
[2019-09-12] MEDS: Acetaminophen 325 MG Tab PO PRN ×2 (04:05→15:36)
[2019-09-12] MEDS: Cholecalciferol (Vitamin D3) 25 MCG Tab PO SCH (07:49)
[2019-09-12] MEDS: Furosemide 20 MG Tab PO SCH (07:49)
[2019-09-12] MEDS: Albuterol/Ipratropium 3.0-0.5 MG/3 ML Neb Soln NEB SCH ×2 (07:49→19:17)
[2019-09-12] MEDS: Fludrocortisone 0.1 MG Tab PO SCH ×2 (07:49→19:17)
[2019-09-12] MEDS: Citalopram 20 MG Tab PO SCH (07:49)
[2019-09-12] MEDS: Potassium Chloride 20 MEQ Tab.ER PO SCH ×3 (07:49→17:32)
[2019-09-12] MEDS: Niacin 500 MG Tab PO SCH ×2 (07:50→17:32)
[2019-09-12] MEDS: Cyanocobalamin (Vitamin B12) 1,000 MCG Tab PO SCH (07:50)
[2019-09-12] MEDS: Simvastatin 10 MG Tab PO SCH (19:18)
[2019-09-12] MEDS: Levothyroxine Sodium 137 MCG TABLET PO SCH (19:18)
[2019-09-12] MEDS: buPROPion 100 MG Tab PO SCH (19:18)
[2019-09-12] MEDS: IBUPROFEN 600 MG PO PRN (19:18)
[2019-09-13] MEDS: Acetaminophen 325 MG Tab PO PRN ×2 (04:01→11:29)
[2019-09-13] MEDS: Citalopram 20 MG Tab PO SCH (07:28)
[2019-09-13] MEDS: Albuterol/Ipratropium 3.0-0.5 MG/3 ML Neb Soln NEB SCH ×2 (07:28→19:53)
[2019-09-13] MEDS: Niacin 500 MG Tab PO SCH ×2 (07:29→17:04)
[2019-09-13] MEDS: Fludrocortisone 0.1 MG Tab PO SCH ×2 (07:29→19:51)
[2019-09-13] MEDS: Potassium Chloride 20 MEQ Tab.ER PO SCH ×3 (07:29→17:04)
[2019-09-13] MEDS: Furosemide 20 MG Tab PO SCH (07:29)
[2019-09-13] MEDS: Cholecalciferol (Vitamin D3) 25 MCG Tab PO SCH (07:30)
[2019-09-13] MEDS: Cyanocobalamin (Vitamin B12) 1,000 MCG Tab PO SCH (07:30)
[2019-09-13] MEDS: IBUPROFEN 600 MG PO PRN ×2 (07:45→17:04)
[2019-09-13] MEDS: Simvastatin 10 MG Tab PO SCH (19:51)
[2019-09-13] MEDS: Levothyroxine Sodium 137 MCG TABLET PO SCH (19:51)
[2019-09-13] MEDS: buPROPion 100 MG Tab PO SCH (19:51)
[2019-09-14] MEDS: Citalopram 20 MG Tab PO SCH (08:14)
[2019-09-14] MEDS: Furosemide 20 MG Tab PO SCH (08:14)
[2019-09-14] MEDS: Fludrocortisone 0.1 MG Tab PO SCH ×2 (08:14→19:49)
[2019-09-14] MEDS: Potassium Chloride 20 MEQ Tab.ER PO SCH ×3 (08:14→17:38)
[2019-09-14] MEDS: Cholecalciferol (Vitamin D3) 25 MCG Tab PO SCH (08:17)
[2019-09-14] MEDS: Albuterol/Ipratropium 3.0-0.5 MG/3 ML Neb Soln NEB SCH ×2 (08:18→19:49)
[2019-09-14] MEDS: Niacin 500 MG Tab PO SCH ×2 (08:18→17:39)
[2019-09-14] MEDS: Cyanocobalamin (Vitamin B12) 1,000 MCG Tab PO SCH (08:18)
[2019-09-14] MEDS: buPROPion 100 MG Tab PO SCH (19:50)
[2019-09-14] MEDS: Levothyroxine Sodium 137 MCG TABLET PO SCH (19:50)
[2019-09-14] MEDS: Simvastatin 10 MG Tab PO SCH (19:50)
[2019-09-14] MEDS: IBUPROFEN 600 MG PO PRN (19:52)
[2019-09-15] MEDS: Niacin 500 MG Tab PO SCH ×2 (07:31→17:08)
[2019-09-15] MEDS: Cholecalciferol (Vitamin D3) 25 MCG Tab PO SCH (07:31)
[2019-09-15] MEDS: Citalopram 20 MG Tab PO SCH (07:32)
[2019-09-15] MEDS: Fludrocortisone 0.1 MG Tab PO SCH ×2 (07:33→19:56)
[2019-09-15] MEDS: Albuterol/Ipratropium 3.0-0.5 MG/3 ML Neb Soln NEB SCH ×2 (07:34→19:56)
[2019-09-15] MEDS: Potassium Chloride 20 MEQ Tab.ER PO SCH ×3 (07:35→17:08)
[2019-09-15] MEDS: Cyanocobalamin (Vitamin B12) 1,000 MCG Tab PO SCH (07:35)
[2019-09-15] MEDS: Furosemide 20 MG Tab PO SCH (07:35)
[2019-09-15] MEDS: Levothyroxine Sodium 137 MCG TABLET PO SCH (19:57)
[2019-09-15] MEDS: Simvastatin 10 MG Tab PO SCH (19:58)
[2019-09-15] MEDS: buPROPion 100 MG Tab PO SCH (19:58)
[2019-09-15] MEDS: IBUPROFEN 600 MG PO PRN (19:59)
[2019-09-16] MEDS: Furosemide 20 MG Tab PO SCH (08:15)
[2019-09-16] MEDS: Fludrocortisone 0.1 MG Tab PO SCH ×2 (08:16→19:42)
[2019-09-16] MEDS: Potassium Chloride 20 MEQ Tab.ER PO SCH ×3 (08:16→17:52)
[2019-09-16] MEDS: Citalopram 20 MG Tab PO SCH (08:16)
[2019-09-16] MEDS: Albuterol/Ipratropium 3.0-0.5 MG/3 ML Neb Soln NEB SCH ×2 (08:16→19:41)
[2019-09-16] MEDS: Niacin 500 MG Tab PO SCH ×2 (08:17→17:53)
[2019-09-16] MEDS: Cyanocobalamin (Vitamin B12) 1,000 MCG Tab PO SCH (08:18)
[2019-09-16] MEDS: IBUPROFEN 600 MG PO PRN ×2 (08:18→19:43)
[2019-09-16] MEDS: Cholecalciferol (Vitamin D3) 25 MCG Tab PO SCH (08:18)
[2019-09-16] MEDS: Levothyroxine Sodium 137 MCG TABLET PO SCH (19:42)
[2019-09-16] MEDS: buPROPion 100 MG Tab PO SCH (19:42)
[2019-09-16] MEDS: Simvastatin 10 MG Tab PO SCH (19:42)
[2019-09-17] MEDS: IBUPROFEN 600 MG PO PRN ×3 (03:06→19:37)
[2019-09-17] MEDS: Albuterol/Ipratropium 3.0-0.5 MG/3 ML Neb Soln NEB SCH ×2 (07:26→19:36)
[2019-09-17] MEDS: Acetaminophen 325 MG Tab PO PRN ×2 (07:28→17:13)
[2019-09-17] MEDS: Furosemide 20 MG Tab PO SCH (07:29)
[2019-09-17] MEDS: Citalopram 20 MG Tab PO SCH (07:29)
[2019-09-17] MEDS: Fludrocortisone 0.1 MG Tab PO SCH ×2 (07:29→19:36)
[2019-09-17] MEDS: Potassium Chloride 20 MEQ Tab.ER PO SCH ×3 (07:29→17:12)
[2019-09-17] MEDS: Cholecalciferol (Vitamin D3) 25 MCG Tab PO SCH (07:30)
[2019-09-17] MEDS: Cyanocobalamin (Vitamin B12) 1,000 MCG Tab PO SCH (07:30)
[2019-09-17] MEDS: Niacin 500 MG Tab PO SCH ×2 (07:30→17:12)
[2019-09-17] MEDS: Levothyroxine Sodium 137 MCG TABLET PO SCH (19:36)
[2019-09-17] MEDS: buPROPion 100 MG Tab PO SCH (19:36)
[2019-09-17] MEDS: Simvastatin 10 MG Tab PO SCH (19:36)
[2019-09-18] MEDS: Albuterol/Ipratropium 3.0-0.5 MG/3 ML Neb Soln NEB SCH ×2 (07:25→19:08)
[2019-09-18] MEDS: Niacin 500 MG Tab PO SCH ×2 (07:26→17:03)
[2019-09-18] MEDS: Fludrocortisone 0.1 MG Tab PO SCH ×2 (07:26→19:08)
[2019-09-18] MEDS: Citalopram 20 MG Tab PO SCH (07:26)
[2019-09-18] MEDS: Potassium Chloride 20 MEQ Tab.ER PO SCH ×3 (07:26→17:03)
[2019-09-18] MEDS: Furosemide 20 MG Tab PO SCH (07:26)
[2019-09-18] MEDS: Cyanocobalamin (Vitamin B12) 1,000 MCG Tab PO SCH (07:27)
[2019-09-18] MEDS: IBUPROFEN 600 MG PO PRN ×2 (07:27→17:04)
[2019-09-18] MEDS: Cholecalciferol (Vitamin D3) 25 MCG Tab PO SCH (07:27)
[2019-09-18] MEDS: Acetaminophen 325 MG Tab PO PRN (11:21)
[2019-09-18] MEDS: Simvastatin 10 MG Tab PO SCH (19:08)
[2019-09-18] MEDS: Levothyroxine Sodium 137 MCG TABLET PO SCH (19:08)
[2019-09-18] MEDS: buPROPion 100 MG Tab PO SCH (19:08)
[2019-09-19] MEDS: Albuterol/Ipratropium 3.0-0.5 MG/3 ML Neb Soln NEB SCH ×2 (07:13→19:18)
[2019-09-19] MEDS: IBUPROFEN 600 MG PO PRN ×2 (07:16→17:11)
[2019-09-19] MEDS: Potassium Chloride 20 MEQ Tab.ER PO SCH ×3 (07:17→17:11)
[2019-09-19] MEDS: Furosemide 20 MG Tab PO SCH (07:17)
[2019-09-19] MEDS: Niacin 500 MG Tab PO SCH ×2 (07:17→17:11)
[2019-09-19] MEDS: Fludrocortisone 0.1 MG Tab PO SCH ×2 (07:17→19:18)
[2019-09-19] MEDS: Citalopram 20 MG Tab PO SCH (07:17)
[2019-09-19] MEDS: Cholecalciferol (Vitamin D3) 25 MCG Tab PO SCH (07:18)
[2019-09-19] MEDS: Cyanocobalamin (Vitamin B12) 1,000 MCG Tab PO SCH (07:18)
[2019-09-19] MEDS: Acetaminophen 325 MG Tab PO PRN (11:17)
[2019-09-19] MEDS: buPROPion 100 MG Tab PO SCH (19:18)
[2019-09-19] MEDS: Simvastatin 10 MG Tab PO SCH (19:18)
[2019-09-19] MEDS: Levothyroxine Sodium 137 MCG TABLET PO SCH (19:18)
[2019-09-20] MEDS: Albuterol/Ipratropium 3.0-0.5 MG/3 ML Neb Soln NEB SCH ×2 (07:53→19:13)
[2019-09-20] MEDS: Citalopram 20 MG Tab PO SCH (07:54)
[2019-09-20] MEDS: Fludrocortisone 0.1 MG Tab PO SCH ×2 (07:55→19:13)
[2019-09-20] MEDS: Potassium Chloride 20 MEQ Tab.ER PO SCH ×3 (07:55→17:22)
[2019-09-20] MEDS: Furosemide 20 MG Tab PO SCH (07:58)
[2019-09-20] MEDS: Niacin 500 MG Tab PO SCH ×2 (07:59→17:23)
[2019-09-20] MEDS: Cholecalciferol (Vitamin D3) 25 MCG Tab PO SCH (08:00)
[2019-09-20] MEDS: Cyanocobalamin (Vitamin B12) 1,000 MCG Tab PO SCH (08:00)
[2019-09-20] MEDS: IBUPROFEN 600 MG PO PRN (09:03)
[2019-09-20] MEDS: Aluminum Hydroxide/Magnesium Hydroxide/Simethicone Susp 30 ML Cup PO PRN (09:04)
[2019-09-20] MEDS: Acetaminophen 325 MG Tab PO PRN ×2 (11:32→19:14)
[2019-09-20] MEDS: Levothyroxine Sodium 137 MCG TABLET PO SCH (19:13)
[2019-09-20] MEDS: buPROPion 100 MG Tab PO SCH (19:14)
[2019-09-20] MEDS: Simvastatin 10 MG Tab PO SCH (19:14)
[2019-09-21] MEDS: Fludrocortisone 0.1 MG Tab PO SCH ×2 (07:44→19:52)
[2019-09-21] MEDS: Citalopram 20 MG Tab PO SCH (07:44)
[2019-09-21] MEDS: Potassium Chloride 20 MEQ Tab.ER PO SCH ×3 (07:45→17:39)
[2019-09-21] MEDS: Furosemide 20 MG Tab PO SCH (07:45)
[2019-09-21] MEDS: Niacin 500 MG Tab PO SCH ×2 (07:46→17:39)
[2019-09-21] MEDS: Cyanocobalamin (Vitamin B12) 1,000 MCG Tab PO SCH (07:47)
[2019-09-21] MEDS: Cholecalciferol (Vitamin D3) 25 MCG Tab PO SCH (07:48)
[2019-09-21] MEDS: Albuterol/Ipratropium 3.0-0.5 MG/3 ML Neb Soln NEB SCH ×2 (07:48→19:52)
[2019-09-21] MEDS: Levothyroxine Sodium 137 MCG TABLET PO SCH (19:52)
[2019-09-21] MEDS: buPROPion 100 MG Tab PO SCH (19:52)
[2019-09-21] MEDS: Simvastatin 10 MG Tab PO SCH (19:53)
[2019-09-21] MEDS: Acetaminophen 325 MG Tab PO PRN (19:53)
[2019-09-22] MEDS: Potassium Chloride 20 MEQ Tab.ER PO SCH ×3 (08:06→17:21)
[2019-09-22] MEDS: Furosemide 20 MG Tab PO SCH (08:06)
[2019-09-22] MEDS: Fludrocortisone 0.1 MG Tab PO SCH ×2 (08:07→20:13)
[2019-09-22] MEDS: Citalopram 20 MG Tab PO SCH (08:07)
[2019-09-22] MEDS: Albuterol/Ipratropium 3.0-0.5 MG/3 ML Neb Soln NEB SCH ×2 (08:08→20:13)
[2019-09-22] MEDS: Niacin 500 MG Tab PO SCH ×2 (08:09→17:26)
[2019-09-22] MEDS: Cyanocobalamin (Vitamin B12) 1,000 MCG Tab PO SCH (08:09)
[2019-09-22] MEDS: Cholecalciferol (Vitamin D3) 25 MCG Tab PO SCH (08:10)
[2019-09-22] MEDS: buPROPion 100 MG Tab PO SCH (20:13)
[2019-09-22] MEDS: Levothyroxine Sodium 137 MCG TABLET PO SCH (20:13)
[2019-09-22] MEDS: Simvastatin 10 MG Tab PO SCH (20:13)
[2019-09-22] MEDS: Acetaminophen 325 MG Tab PO PRN (20:14)
[2019-09-23] MEDS: Albuterol/Ipratropium 3.0-0.5 MG/3 ML Neb Soln NEB SCH ×2 (08:59→19:13)
[2019-09-23] MEDS: Citalopram 20 MG Tab PO SCH (09:00)
[2019-09-23] MEDS: Potassium Chloride 20 MEQ Tab.ER PO SCH ×3 (09:01→18:15)
[2019-09-23] MEDS: Furosemide 20 MG Tab PO SCH (09:01)
[2019-09-23] MEDS: Fludrocortisone 0.1 MG Tab PO SCH ×2 (09:01→19:13)
[2019-09-23] MEDS: Niacin 500 MG Tab PO SCH ×2 (09:02→18:15)
[2019-09-23] MEDS: Cholecalciferol (Vitamin D3) 25 MCG Tab PO SCH (09:03)
[2019-09-23] MEDS: Cyanocobalamin (Vitamin B12) 1,000 MCG Tab PO SCH (09:03)
[2019-09-23] MEDS: Levothyroxine Sodium 137 MCG TABLET PO SCH (19:13)
[2019-09-23] MEDS: buPROPion 100 MG Tab PO SCH (19:13)
[2019-09-23] MEDS: Simvastatin 10 MG Tab PO SCH (19:13)
[2019-09-24] MEDS: Acetaminophen 325 MG Tab PO PRN (05:30)
[2019-09-24] MEDS: Citalopram 20 MG Tab PO SCH (07:36)
[2019-09-24] MEDS: Furosemide 20 MG Tab PO SCH (07:36)
[2019-09-24] MEDS: Fludrocortisone 0.1 MG Tab PO SCH ×2 (07:36→19:22)
[2019-09-24] MEDS: Potassium Chloride 20 MEQ Tab.ER PO SCH ×3 (07:36→17:07)
[2019-09-24] MEDS: Cyanocobalamin (Vitamin B12) 1,000 MCG Tab PO SCH (07:37)
[2019-09-24] MEDS: Cholecalciferol (Vitamin D3) 25 MCG Tab PO SCH (07:37)
[2019-09-24] MEDS: Albuterol/Ipratropium 3.0-0.5 MG/3 ML Neb Soln NEB SCH ×2 (07:37→19:21)
[2019-09-24] MEDS: Niacin 500 MG Tab PO SCH ×2 (07:37→17:07)
[2019-09-24] MEDS: buPROPion 100 MG Tab PO SCH (19:22)
[2019-09-24] MEDS: Levothyroxine Sodium 137 MCG TABLET PO SCH (19:22)
[2019-09-24] MEDS: Simvastatin 10 MG Tab PO SCH (19:22)
[2019-09-24] MEDS: IBUPROFEN 600 MG PO PRN (19:23)
[2019-09-25] MEDS: Potassium Chloride 20 MEQ Tab.ER PO SCH ×3 (07:37→17:18)
[2019-09-25] MEDS: Citalopram 20 MG Tab PO SCH (07:38)
[2019-09-25] MEDS: Furosemide 20 MG Tab PO SCH (07:38)
[2019-09-25] MEDS: Albuterol/Ipratropium 3.0-0.5 MG/3 ML Neb Soln NEB SCH ×2 (07:38→19:30)
[2019-09-25] MEDS: Fludrocortisone 0.1 MG Tab PO SCH ×2 (07:38→19:31)
[2019-09-25] MEDS: Cholecalciferol (Vitamin D3) 25 MCG Tab PO SCH (07:39)
[2019-09-25] MEDS: Cyanocobalamin (Vitamin B12) 1,000 MCG Tab PO SCH (07:39)
[2019-09-25] MEDS: Niacin 500 MG Tab PO SCH ×2 (07:39→17:18)
[2019-09-25] MEDS: Acetaminophen 325 MG Tab PO PRN (18:10)
[2019-09-25] MEDS: Simvastatin 10 MG Tab PO SCH (19:31)
[2019-09-25] MEDS: Levothyroxine Sodium 137 MCG TABLET PO SCH (19:31)
[2019-09-25] MEDS: buPROPion 100 MG Tab PO SCH (19:31)
[2019-09-26] MEDS: Fludrocortisone 0.1 MG Tab PO SCH ×2 (07:38→19:16)
[2019-09-26] MEDS: Potassium Chloride 20 MEQ Tab.ER PO SCH ×3 (07:38→17:13)
[2019-09-26] MEDS: Citalopram 20 MG Tab PO SCH (07:38)
[2019-09-26] MEDS: Furosemide 20 MG Tab PO SCH (07:38)
[2019-09-26] MEDS: Cyanocobalamin (Vitamin B12) 1,000 MCG Tab PO SCH (07:39)
[2019-09-26] MEDS: Niacin 500 MG Tab PO SCH ×2 (07:39→17:12)
[2019-09-26] MEDS: Cholecalciferol (Vitamin D3) 25 MCG Tab PO SCH (07:39)
[2019-09-26] MEDS: Albuterol/Ipratropium 3.0-0.5 MG/3 ML Neb Soln NEB SCH ×2 (07:40→19:15)
[2019-09-26] MEDS: Aluminum Hydroxide/Magnesium Hydroxide/Simethicone Susp 30 ML Cup PO PRN (08:52)
[2019-09-26] MEDS: Acetaminophen 325 MG Tab PO PRN (16:02)
[2019-09-26] MEDS: Levothyroxine Sodium 137 MCG TABLET PO SCH (19:16)
[2019-09-26] MEDS: Simvastatin 10 MG Tab PO SCH (19:16)
[2019-09-26] MEDS: buPROPion 100 MG Tab PO SCH (19:16)
[2019-09-26] MEDS: IBUPROFEN 600 MG PO PRN (19:17)
[2019-09-27] MEDS: Albuterol/Ipratropium 3.0-0.5 MG/3 ML Neb Soln NEB SCH ×2 (07:34→19:40)
[2019-09-27] MEDS: Fludrocortisone 0.1 MG Tab PO SCH ×2 (07:35→19:40)
[2019-09-27] MEDS: Citalopram 20 MG Tab PO SCH (07:35)
[2019-09-27] MEDS: Niacin 500 MG Tab PO SCH ×2 (07:35→17:11)
[2019-09-27] MEDS: Furosemide 20 MG Tab PO SCH (07:35)
[2019-09-27] MEDS: Potassium Chloride 20 MEQ Tab.ER PO SCH ×3 (07:35→17:11)
[2019-09-27] MEDS: IBUPROFEN 600 MG PO PRN ×2 (07:36→17:10)
[2019-09-27] MEDS: Cyanocobalamin (Vitamin B12) 1,000 MCG Tab PO SCH (07:36)
[2019-09-27] MEDS: Cholecalciferol (Vitamin D3) 25 MCG Tab PO SCH (07:36)
[2019-09-27] MEDS: buPROPion 100 MG Tab PO SCH (19:41)
[2019-09-27] MEDS: Levothyroxine Sodium 137 MCG TABLET PO SCH (19:41)
[2019-09-27] MEDS: Simvastatin 10 MG Tab PO SCH (19:41)
[2019-09-27] MEDS: Acetaminophen 325 MG Tab PO PRN (19:42)
[2019-09-28] MEDS: Fludrocortisone 0.1 MG Tab PO SCH ×2 (08:13→19:32)
[2019-09-28] MEDS: Citalopram 20 MG Tab PO SCH (08:13)
[2019-09-28] MEDS: Potassium Chloride 20 MEQ Tab.ER PO SCH ×3 (08:13→17:31)
[2019-09-28] MEDS: Furosemide 20 MG Tab PO SCH (08:14)
[2019-09-28] MEDS: Albuterol/Ipratropium 3.0-0.5 MG/3 ML Neb Soln NEB SCH ×2 (08:14→19:32)
[2019-09-28] MEDS: Niacin 500 MG Tab PO SCH ×2 (08:15→17:31)
[2019-09-28] MEDS: Cholecalciferol (Vitamin D3) 25 MCG Tab PO SCH (08:15)
[2019-09-28] MEDS: Cyanocobalamin (Vitamin B12) 1,000 MCG Tab PO SCH (08:15)
[2019-09-28] MEDS: IBUPROFEN 600 MG PO PRN ×2 (08:16→19:37)
--- NOTE | 2019-09-28 19:23 | PCM.SN ---
- Free Text/Narrative Note: Note colonoscopy performed on 09/23/19 in this facility. Tubular adenoma diagnosed and removed from the ascending colon. Follow-up as per recommendations from general surgeon, Dr. Jaime.
[2019-09-28] MEDS: Simvastatin 10 MG Tab PO SCH (19:33)
[2019-09-28] MEDS: Levothyroxine Sodium 137 MCG TABLET PO SCH (19:33)
[2019-09-28] MEDS: buPROPion 100 MG Tab PO SCH (19:33)
[2019-09-29] MEDS: Albuterol/Ipratropium 3.0-0.5 MG/3 ML Neb Soln NEB SCH ×2 (07:31→19:17)
[2019-09-29] MEDS: Citalopram 20 MG Tab PO SCH (07:32)
[2019-09-29] MEDS: Potassium Chloride 20 MEQ Tab.ER PO SCH ×3 (07:32→17:04)
[2019-09-29] MEDS: Niacin 500 MG Tab PO SCH ×2 (07:32→17:04)
[2019-09-29] MEDS: Fludrocortisone 0.1 MG Tab PO SCH ×2 (07:32→19:17)
[2019-09-29] MEDS: Furosemide 20 MG Tab PO SCH (07:32)
[2019-09-29] MEDS: IBUPROFEN 600 MG PO PRN ×2 (07:33→17:04)
[2019-09-29] MEDS: Cyanocobalamin (Vitamin B12) 1,000 MCG Tab PO SCH (07:33)
[2019-09-29] MEDS: Cholecalciferol (Vitamin D3) 25 MCG Tab PO SCH (07:33)
[2019-09-29] MEDS: ATROPINE PO PRN (09:52)
[2019-09-29] MEDS: DIPHENOXYLATE PO PRN (09:52)
[2019-09-29] MEDS: Acetaminophen 325 MG Tab PO PRN ×2 (11:20→19:18)
[2019-09-29] MEDS: Levothyroxine Sodium 137 MCG TABLET PO SCH (19:17)
[2019-09-29] MEDS: Simvastatin 10 MG Tab PO SCH (19:18)
[2019-09-29] MEDS: buPROPion 100 MG Tab PO SCH (19:18)
[2019-09-30] MEDS: Acetaminophen 325 MG Tab PO PRN ×2 (05:02→22:15)
[2019-09-30] MEDS: Albuterol/Ipratropium 3.0-0.5 MG/3 ML Neb Soln NEB SCH ×2 (07:39→19:15)
[2019-09-30] MEDS: Citalopram 20 MG Tab PO SCH (07:40)
[2019-09-30] MEDS: Potassium Chloride 20 MEQ Tab.ER PO SCH ×3 (07:40→17:07)
[2019-09-30] MEDS: Furosemide 20 MG Tab PO SCH (07:40)
[2019-09-30] MEDS: Fludrocortisone 0.1 MG Tab PO SCH ×2 (07:40→19:15)
[2019-09-30] MEDS: Cyanocobalamin (Vitamin B12) 1,000 MCG Tab PO SCH (07:41)
[2019-09-30] MEDS: Niacin 500 MG Tab PO SCH ×2 (07:41→17:07)
[2019-09-30] MEDS: Cholecalciferol (Vitamin D3) 25 MCG Tab PO SCH (07:41)
[2019-09-30] MEDS: IBUPROFEN 600 MG PO PRN (17:08)
[2019-09-30] MEDS: Simvastatin 10 MG Tab PO SCH (19:14)
[2019-09-30] MEDS: Levothyroxine Sodium 137 MCG TABLET PO SCH (19:15)
[2019-09-30] MEDS: buPROPion 100 MG Tab PO SCH (19:15)
[2019-10-01] MEDS: Furosemide 20 MG Tab PO SCH (08:12)
[2019-10-01] MEDS: Fludrocortisone 0.1 MG Tab PO SCH ×2 (08:12→19:42)
[2019-10-01] MEDS: Citalopram 20 MG Tab PO SCH (08:12)
[2019-10-01] MEDS: Potassium Chloride 20 MEQ Tab.ER PO SCH ×3 (08:13→17:39)
[2019-10-01] MEDS: IBUPROFEN 600 MG PO PRN ×2 (08:13→19:49)
[2019-10-01] MEDS: Acetaminophen 325 MG Tab PO PRN (08:14)
[2019-10-01] MEDS: Niacin 500 MG Tab PO SCH ×2 (08:15→17:38)
[2019-10-01] MEDS: Albuterol/Ipratropium 3.0-0.5 MG/3 ML Neb Soln NEB SCH ×2 (08:15→19:47)
[2019-10-01] MEDS: Cyanocobalamin (Vitamin B12) 1,000 MCG Tab PO SCH (08:15)
[2019-10-01] MEDS: Cholecalciferol (Vitamin D3) 25 MCG Tab PO SCH (08:16)
[2019-10-01] MEDS: Levothyroxine Sodium 137 MCG TABLET PO SCH (19:43)
[2019-10-01] MEDS: buPROPion 100 MG Tab PO SCH (19:45)
[2019-10-01] MEDS: Simvastatin 10 MG Tab PO SCH (19:46)
[2019-10-02] MEDS: Albuterol/Ipratropium 3.0-0.5 MG/3 ML Neb Soln NEB SCH ×2 (08:10→19:31)
[2019-10-02] MEDS: Fludrocortisone 0.1 MG Tab PO SCH ×2 (08:11→19:34)
[2019-10-02] MEDS: Furosemide 20 MG Tab PO SCH (08:11)
[2019-10-02] MEDS: Citalopram 20 MG Tab PO SCH (08:12)
[2019-10-02] MEDS: Niacin 500 MG Tab PO SCH ×2 (08:12→17:34)
[2019-10-02] MEDS: Potassium Chloride 20 MEQ Tab.ER PO SCH ×3 (08:12→17:33)
[2019-10-02] MEDS: Cyanocobalamin (Vitamin B12) 1,000 MCG Tab PO SCH (08:13)
[2019-10-02] MEDS: Cholecalciferol (Vitamin D3) 25 MCG Tab PO SCH (08:13)
[2019-10-02] MEDS: IBUPROFEN 600 MG PO PRN ×2 (08:15→19:39)
[2019-10-02] MEDS: Levothyroxine Sodium 137 MCG TABLET PO SCH (19:34)
[2019-10-02] MEDS: buPROPion 100 MG Tab PO SCH (19:35)
[2019-10-02] MEDS: Simvastatin 10 MG Tab PO SCH (19:37)
[2019-10-03] MEDS: Furosemide 20 MG Tab PO SCH (07:49)
[2019-10-03] MEDS: Potassium Chloride 20 MEQ Tab.ER PO SCH ×3 (07:50→17:33)
[2019-10-03] MEDS: Fludrocortisone 0.1 MG Tab PO SCH ×2 (07:50→19:27)
[2019-10-03] MEDS: Citalopram 20 MG Tab PO SCH (07:50)
[2019-10-03] MEDS: Albuterol/Ipratropium 3.0-0.5 MG/3 ML Neb Soln NEB SCH ×2 (07:50→19:26)
[2019-10-03] MEDS: Cyanocobalamin (Vitamin B12) 1,000 MCG Tab PO SCH (07:51)
[2019-10-03] MEDS: Cholecalciferol (Vitamin D3) 25 MCG Tab PO SCH (07:51)
[2019-10-03] MEDS: Niacin 500 MG Tab PO SCH ×2 (07:51→17:33)
[2019-10-03] MEDS: Levothyroxine Sodium 137 MCG TABLET PO SCH (19:28)
[2019-10-03] MEDS: buPROPion 100 MG Tab PO SCH (19:28)
[2019-10-03] MEDS: Simvastatin 10 MG Tab PO SCH (19:29)
[2019-10-03] MEDS: IBUPROFEN 600 MG PO PRN (19:34)
[2019-10-04] MEDS: Citalopram 20 MG Tab PO SCH (08:19)
[2019-10-04] MEDS: Potassium Chloride 20 MEQ Tab.ER PO SCH ×3 (08:19→17:52)
[2019-10-04] MEDS: Fludrocortisone 0.1 MG Tab PO SCH ×2 (08:20→19:31)
[2019-10-04] MEDS: Albuterol/Ipratropium 3.0-0.5 MG/3 ML Neb Soln NEB SCH ×2 (08:20→19:30)
[2019-10-04] MEDS: Furosemide 20 MG Tab PO SCH (08:20)
[2019-10-04] MEDS: Cholecalciferol (Vitamin D3) 25 MCG Tab PO SCH (08:21)
[2019-10-04] MEDS: Cyanocobalamin (Vitamin B12) 1,000 MCG Tab PO SCH (08:21)
[2019-10-04] MEDS: Niacin 500 MG Tab PO SCH ×2 (08:21→17:53)
[2019-10-04] MEDS: IBUPROFEN 600 MG PO PRN ×2 (08:23→19:39)
[2019-10-04] MEDS: Simvastatin 10 MG Tab PO SCH (19:31)
[2019-10-04] MEDS: buPROPion 100 MG Tab PO SCH (19:31)
[2019-10-04] MEDS: Levothyroxine Sodium 137 MCG TABLET PO SCH (19:31)
[2019-10-04] MEDS: Aluminum Hydroxide/Magnesium Hydroxide/Simethicone Susp 30 ML Cup PO PRN (19:32)
[2019-10-05] MEDS: Citalopram 20 MG Tab PO SCH (07:49)
[2019-10-05] MEDS: IBUPROFEN 600 MG PO PRN ×2 (07:49→17:11)
[2019-10-05] MEDS: Fludrocortisone 0.1 MG Tab PO SCH ×2 (07:50→19:58)
[2019-10-05] MEDS: Albuterol/Ipratropium 3.0-0.5 MG/3 ML Neb Soln NEB SCH ×2 (07:50→19:24)
[2019-10-05] MEDS: Furosemide 20 MG Tab PO SCH (07:50)
[2019-10-05] MEDS: Potassium Chloride 20 MEQ Tab.ER PO SCH ×3 (07:50→17:11)
[2019-10-05] MEDS: Cholecalciferol (Vitamin D3) 25 MCG Tab PO SCH (07:51)
[2019-10-05] MEDS: Niacin 500 MG Tab PO SCH ×2 (07:51→17:11)
[2019-10-05] MEDS: Cyanocobalamin (Vitamin B12) 1,000 MCG Tab PO SCH (07:51)
[2019-10-05] MEDS: Acetaminophen 325 MG Tab PO PRN (19:25)
[2019-10-05] MEDS: Levothyroxine Sodium 137 MCG TABLET PO SCH (19:58)
[2019-10-05] MEDS: Simvastatin 10 MG Tab PO SCH (19:58)
[2019-10-05] MEDS: buPROPion 100 MG Tab PO SCH (19:58)
[2019-10-06] MEDS: Furosemide 20 MG Tab PO SCH (07:55)
[2019-10-06] MEDS: Potassium Chloride 20 MEQ Tab.ER PO SCH ×3 (07:56→17:31)
[2019-10-06] MEDS: Fludrocortisone 0.1 MG Tab PO SCH ×2 (07:57→19:39)
[2019-10-06] MEDS: Albuterol/Ipratropium 3.0-0.5 MG/3 ML Neb Soln NEB SCH ×2 (07:57→19:37)
[2019-10-06] MEDS: Citalopram 20 MG Tab PO SCH (07:57)
[2019-10-06] MEDS: Niacin 500 MG Tab PO SCH ×2 (07:57→17:32)
[2019-10-06] MEDS: Cholecalciferol (Vitamin D3) 25 MCG Tab PO SCH (07:58)
[2019-10-06] MEDS: Cyanocobalamin (Vitamin B12) 1,000 MCG Tab PO SCH (07:58)
[2019-10-06] MEDS: IBUPROFEN 600 MG PO PRN ×3 (08:11→21:50)
[2019-10-06] MEDS: buPROPion 100 MG Tab PO SCH (19:39)
[2019-10-06] MEDS: Simvastatin 10 MG Tab PO SCH (19:39)
[2019-10-06] MEDS: Levothyroxine Sodium 137 MCG TABLET PO SCH (19:39)
[2019-10-07] MEDS: IBUPROFEN 600 MG PO PRN ×2 (04:52→19:12)
[2019-10-07] MEDS: Menthol/Methyl Salicylate 85 GM Tube TOP PRN (04:52)
[2019-10-07] MEDS: Potassium Chloride 20 MEQ Tab.ER PO SCH ×3 (08:15→17:20)
[2019-10-07] MEDS: Furosemide 20 MG Tab PO SCH (08:16)
[2019-10-07] MEDS: Citalopram 20 MG Tab PO SCH (08:16)
[2019-10-07] MEDS: Fludrocortisone 0.1 MG Tab PO SCH ×2 (08:16→19:14)
[2019-10-07] MEDS: Niacin 500 MG Tab PO SCH ×2 (08:17→17:20)
[2019-10-07] MEDS: Albuterol/Ipratropium 3.0-0.5 MG/3 ML Neb Soln NEB SCH ×2 (08:17→19:14)
[2019-10-07] MEDS: Cyanocobalamin (Vitamin B12) 1,000 MCG Tab PO SCH (08:17)
[2019-10-07] MEDS: Cholecalciferol (Vitamin D3) 25 MCG Tab PO SCH (08:17)
[2019-10-07] MEDS: Aluminum Hydroxide/Magnesium Hydroxide/Simethicone Susp 30 ML Cup PO PRN (19:13)
[2019-10-07] MEDS: Simvastatin 10 MG Tab PO SCH (19:14)
[2019-10-07] MEDS: buPROPion 100 MG Tab PO SCH (19:14)
[2019-10-07] MEDS: Levothyroxine Sodium 137 MCG TABLET PO SCH (19:14)
[2019-10-08] MEDS: Citalopram 20 MG Tab PO SCH (07:44)
[2019-10-08] MEDS: Fludrocortisone 0.1 MG Tab PO SCH ×2 (07:45→19:07)
[2019-10-08] MEDS: Albuterol/Ipratropium 3.0-0.5 MG/3 ML Neb Soln NEB SCH ×2 (07:45→19:08)
[2019-10-08] MEDS: Potassium Chloride 20 MEQ Tab.ER PO SCH ×3 (07:46→17:20)
[2019-10-08] MEDS: Furosemide 20 MG Tab PO SCH (07:47)
[2019-10-08] MEDS: Niacin 500 MG Tab PO SCH ×2 (07:47→17:22)
[2019-10-08] MEDS: Cyanocobalamin (Vitamin B12) 1,000 MCG Tab PO SCH (07:48)
[2019-10-08] MEDS: Cholecalciferol (Vitamin D3) 25 MCG Tab PO SCH (07:49)
[2019-10-08] MEDS: IBUPROFEN 600 MG PO PRN ×2 (08:09→19:08)
[2019-10-08] MEDS: Levothyroxine Sodium 137 MCG TABLET PO SCH (19:07)
[2019-10-08] MEDS: Simvastatin 10 MG Tab PO SCH (19:07)
[2019-10-08] MEDS: buPROPion 100 MG Tab PO SCH (19:07)
[2019-10-09] MEDS: Potassium Chloride 20 MEQ Tab.ER PO SCH ×3 (07:14→17:10)
[2019-10-09] MEDS: Fludrocortisone 0.1 MG Tab PO SCH ×2 (07:14→19:22)
[2019-10-09] MEDS: Citalopram 20 MG Tab PO SCH (07:14)
[2019-10-09] MEDS: Albuterol/Ipratropium 3.0-0.5 MG/3 ML Neb Soln NEB SCH ×2 (07:14→19:22)
[2019-10-09] MEDS: Niacin 500 MG Tab PO SCH ×2 (07:15→17:10)
[2019-10-09] MEDS: Furosemide 20 MG Tab PO SCH (07:15)
[2019-10-09] MEDS: Cholecalciferol (Vitamin D3) 25 MCG Tab PO SCH (07:16)
[2019-10-09] MEDS: IBUPROFEN 600 MG PO PRN ×2 (07:16→17:11)
[2019-10-09] MEDS: Cyanocobalamin (Vitamin B12) 1,000 MCG Tab PO SCH (07:16)
[2019-10-09] MEDS: Aluminum Hydroxide/Magnesium Hydroxide/Simethicone Susp 30 ML Cup PO PRN (09:32)
[2019-10-09] MEDS: Acetaminophen 325 MG Tab PO PRN (11:11)
[2019-10-09] MEDS: Levothyroxine Sodium 137 MCG TABLET PO SCH (19:22)
[2019-10-09] MEDS: buPROPion 100 MG Tab PO SCH (19:22)
[2019-10-09] MEDS: Simvastatin 10 MG Tab PO SCH (19:22)
[2019-10-10] MEDS: Acetaminophen 325 MG Tab PO PRN (02:29)
[2019-10-10] MEDS: Potassium Chloride 20 MEQ Tab.ER PO SCH ×3 (07:54→17:37)
[2019-10-10] MEDS: Fludrocortisone 0.1 MG Tab PO SCH ×2 (07:54→19:55)
[2019-10-10] MEDS: Citalopram 20 MG Tab PO SCH (07:54)
[2019-10-10] MEDS: Furosemide 20 MG Tab PO SCH (07:54)
[2019-10-10] MEDS: Cyanocobalamin (Vitamin B12) 1,000 MCG Tab PO SCH (07:55)
[2019-10-10] MEDS: Albuterol/Ipratropium 3.0-0.5 MG/3 ML Neb Soln NEB SCH ×2 (07:55→19:55)
[2019-10-10] MEDS: Cholecalciferol (Vitamin D3) 25 MCG Tab PO SCH (07:55)
[2019-10-10] MEDS: Niacin 500 MG Tab PO SCH ×2 (07:55→17:37)
[2019-10-10] MEDS: buPROPion 100 MG Tab PO SCH (19:55)
[2019-10-10] MEDS: Levothyroxine Sodium 137 MCG TABLET PO SCH (19:55)
[2019-10-10] MEDS: Simvastatin 10 MG Tab PO SCH (19:56)
[2019-10-10] MEDS: IBUPROFEN 600 MG PO PRN (19:56)
[2019-10-11] MEDS: IBUPROFEN 600 MG PO PRN ×3 (04:24→19:52)
[2019-10-11] MEDS: Menthol/Methyl Salicylate 85 GM Tube TOP PRN (04:25)
[2019-10-11] MEDS: Albuterol/Ipratropium 3.0-0.5 MG/3 ML Neb Soln NEB SCH ×2 (07:22→19:50)
[2019-10-11] MEDS: Citalopram 20 MG Tab PO SCH (07:23)
[2019-10-11] MEDS: Potassium Chloride 20 MEQ Tab.ER PO SCH ×3 (07:23→17:12)
[2019-10-11] MEDS: Fludrocortisone 0.1 MG Tab PO SCH ×2 (07:23→19:53)
[2019-10-11] MEDS: Niacin 500 MG Tab PO SCH ×2 (07:24→17:12)
[2019-10-11] MEDS: Cyanocobalamin (Vitamin B12) 1,000 MCG Tab PO SCH (07:24)
[2019-10-11] MEDS: Furosemide 20 MG Tab PO SCH (07:24)
[2019-10-11] MEDS: Cholecalciferol (Vitamin D3) 25 MCG Tab PO SCH (07:25)
[2019-10-11] MEDS: Acetaminophen 325 MG Tab PO PRN ×2 (07:37→17:13)
[2019-10-11] MEDS: Aluminum Hydroxide/Magnesium Hydroxide/Simethicone Susp 30 ML Cup PO PRN (09:39)
[2019-10-11] MEDS: Levothyroxine Sodium 137 MCG TABLET PO SCH (19:53)
[2019-10-11] MEDS: buPROPion 100 MG Tab PO SCH (19:54)
[2019-10-11] MEDS: Simvastatin 10 MG Tab PO SCH (19:55)
[2019-10-12] MEDS: Acetaminophen 325 MG Tab PO PRN (05:40)
[2019-10-12] MEDS: Albuterol/Ipratropium 3.0-0.5 MG/3 ML Neb Soln NEB SCH ×2 (07:26→19:28)
[2019-10-12] MEDS: Citalopram 20 MG Tab PO SCH (07:26)
[2019-10-12] MEDS: Potassium Chloride 20 MEQ Tab.ER PO SCH ×3 (07:27→17:09)
[2019-10-12] MEDS: Fludrocortisone 0.1 MG Tab PO SCH ×2 (07:27→19:29)
[2019-10-12] MEDS: Niacin 500 MG Tab PO SCH ×2 (07:28→17:11)
[2019-10-12] MEDS: Furosemide 20 MG Tab PO SCH (07:28)
[2019-10-12] MEDS: Cyanocobalamin (Vitamin B12) 1,000 MCG Tab PO SCH (07:29)
[2019-10-12] MEDS: Cholecalciferol (Vitamin D3) 25 MCG Tab PO SCH (07:29)
[2019-10-12] MEDS: IBUPROFEN 600 MG PO PRN ×2 (07:31→19:30)
[2019-10-12] MEDS: Simvastatin 10 MG Tab PO SCH (19:29)
[2019-10-12] MEDS: Levothyroxine Sodium 137 MCG TABLET PO SCH (19:29)
[2019-10-12] MEDS: buPROPion 100 MG Tab PO SCH (19:29)
[2019-10-12] MEDS: Menthol/Methyl Salicylate 85 GM Tube TOP PRN (19:31)
[2019-10-13] MEDS: Citalopram 20 MG Tab PO SCH (07:28)
[2019-10-13] MEDS: Niacin 500 MG Tab PO SCH ×2 (07:29→17:12)
[2019-10-13] MEDS: Albuterol/Ipratropium 3.0-0.5 MG/3 ML Neb Soln NEB SCH ×2 (07:29→19:31)
[2019-10-13] MEDS: Potassium Chloride 20 MEQ Tab.ER PO SCH ×3 (07:29→17:11)
[2019-10-13] MEDS: Fludrocortisone 0.1 MG Tab PO SCH ×2 (07:29→19:31)
[2019-10-13] MEDS: Furosemide 20 MG Tab PO SCH (07:29)
[2019-10-13] MEDS: Cyanocobalamin (Vitamin B12) 1,000 MCG Tab PO SCH (07:30)
[2019-10-13] MEDS: IBUPROFEN 600 MG PO PRN ×2 (07:30→17:12)
[2019-10-13] MEDS: Cholecalciferol (Vitamin D3) 25 MCG Tab PO SCH (07:30)
[2019-10-13] MEDS: Acetaminophen 325 MG Tab PO PRN (11:02)
[2019-10-13] MEDS: Levothyroxine Sodium 137 MCG TABLET PO SCH (19:31)
[2019-10-13] MEDS: buPROPion 100 MG Tab PO SCH (19:31)
[2019-10-13] MEDS: Simvastatin 10 MG Tab PO SCH (19:31)
[2019-10-14] MEDS: IBUPROFEN 600 MG PO PRN ×3 (00:10→18:00)
[2019-10-14] MEDS: Citalopram 20 MG Tab PO SCH (08:19)
[2019-10-14] MEDS: Fludrocortisone 0.1 MG Tab PO SCH ×2 (08:19→19:21)
[2019-10-14] MEDS: Albuterol/Ipratropium 3.0-0.5 MG/3 ML Neb Soln NEB SCH ×2 (08:21→19:19)
[2019-10-14] MEDS: Potassium Chloride 20 MEQ Tab.ER PO SCH ×3 (08:22→17:59)
[2019-10-14] MEDS: Furosemide 20 MG Tab PO SCH (08:24)
[2019-10-14] MEDS: Niacin 500 MG Tab PO SCH ×2 (08:25→18:00)
[2019-10-14] MEDS: Cyanocobalamin (Vitamin B12) 1,000 MCG Tab PO SCH (08:26)
[2019-10-14] MEDS: Cholecalciferol (Vitamin D3) 25 MCG Tab PO SCH (08:26)
[2019-10-14] MEDS: Aluminum Hydroxide/Magnesium Hydroxide/Simethicone Susp 30 ML Cup PO PRN (09:14)
[2019-10-14] MEDS: Menthol/Methyl Salicylate 85 GM Tube TOP PRN (19:19)
[2019-10-14] MEDS: buPROPion 100 MG Tab PO SCH (19:20)
[2019-10-14] MEDS: Levothyroxine Sodium 137 MCG TABLET PO SCH (19:20)
[2019-10-14] MEDS: Simvastatin 10 MG Tab PO SCH (19:20)
[2019-10-14] MEDS: Acetaminophen 325 MG Tab PO PRN (19:21)
[2019-10-15] MEDS: Potassium Chloride 20 MEQ Tab.ER PO SCH ×3 (08:11→18:00)
[2019-10-15] MEDS: Furosemide 20 MG Tab PO SCH (08:11)
[2019-10-15] MEDS: Fludrocortisone 0.1 MG Tab PO SCH ×2 (08:11→19:13)
[2019-10-15] MEDS: Citalopram 20 MG Tab PO SCH (08:11)
[2019-10-15] MEDS: IBUPROFEN 600 MG PO PRN ×2 (08:12→18:03)
[2019-10-15] MEDS: Cyanocobalamin (Vitamin B12) 1,000 MCG Tab PO SCH (08:13)
[2019-10-15] MEDS: Cholecalciferol (Vitamin D3) 25 MCG Tab PO SCH (08:13)
[2019-10-15] MEDS: Niacin 500 MG Tab PO SCH ×2 (08:13→18:00)
[2019-10-15] MEDS: Albuterol/Ipratropium 3.0-0.5 MG/3 ML Neb Soln NEB SCH ×2 (08:13→19:12)
[2019-10-15] MEDS: buPROPion 100 MG Tab PO SCH (19:13)
[2019-10-15] MEDS: Simvastatin 10 MG Tab PO SCH (19:13)
[2019-10-15] MEDS: Levothyroxine Sodium 137 MCG TABLET PO SCH (19:13)
[2019-10-15] MEDS: Aluminum Hydroxide/Magnesium Hydroxide/Simethicone Susp 30 ML Cup PO PRN (19:15)
[2019-10-16] MEDS: Acetaminophen 325 MG Tab PO PRN ×2 (03:36→19:36)
[2019-10-16] MEDS: Citalopram 20 MG Tab PO SCH (07:57)
[2019-10-16] MEDS: Potassium Chloride 20 MEQ Tab.ER PO SCH ×3 (07:58→17:34)
[2019-10-16] MEDS: Albuterol/Ipratropium 3.0-0.5 MG/3 ML Neb Soln NEB SCH ×2 (07:58→19:34)
[2019-10-16] MEDS: Fludrocortisone 0.1 MG Tab PO SCH ×2 (07:58→19:34)
[2019-10-16] MEDS: Furosemide 20 MG Tab PO SCH (07:58)
[2019-10-16] MEDS: Niacin 500 MG Tab PO SCH ×2 (07:59→17:35)
[2019-10-16] MEDS: Cholecalciferol (Vitamin D3) 25 MCG Tab PO SCH (08:02)
[2019-10-16] MEDS: Cyanocobalamin (Vitamin B12) 1,000 MCG Tab PO SCH (08:02)
[2019-10-16] MEDS: Levothyroxine Sodium 137 MCG TABLET PO SCH (19:34)
[2019-10-16] MEDS: buPROPion 100 MG Tab PO SCH (19:35)
[2019-10-16] MEDS: Simvastatin 10 MG Tab PO SCH (19:35)
[2019-10-16] MEDS: Aluminum Hydroxide/Magnesium Hydroxide/Simethicone Susp 30 ML Cup PO PRN (19:37)
[2019-10-16] MEDS: Menthol/Methyl Salicylate 85 GM Tube TOP PRN (19:39)
[2019-10-17] MEDS: IBUPROFEN 600 MG PO PRN ×2 (00:25→19:47)
[2019-10-17] MEDS: Menthol/Methyl Salicylate 85 GM Tube TOP PRN ×2 (01:45→19:42)
[2019-10-17] MEDS: Citalopram 20 MG Tab PO SCH (08:00)
[2019-10-17] MEDS: Potassium Chloride 20 MEQ Tab.ER PO SCH ×3 (08:01→17:39)
[2019-10-17] MEDS: Furosemide 20 MG Tab PO SCH (08:01)
[2019-10-17] MEDS: Fludrocortisone 0.1 MG Tab PO SCH ×2 (08:01→19:42)
[2019-10-17] MEDS: Cyanocobalamin (Vitamin B12) 1,000 MCG Tab PO SCH (08:02)
[2019-10-17] MEDS: Cholecalciferol (Vitamin D3) 25 MCG Tab PO SCH (08:02)
[2019-10-17] MEDS: Niacin 500 MG Tab PO SCH ×2 (08:02→17:39)
[2019-10-17] MEDS: Albuterol/Ipratropium 3.0-0.5 MG/3 ML Neb Soln NEB SCH ×2 (08:08→19:41)
[2019-10-17] MEDS: Aluminum Hydroxide/Magnesium Hydroxide/Simethicone Susp 30 ML Cup PO PRN ×2 (09:04→19:51)
[2019-10-17] MEDS: buPROPion 100 MG Tab PO SCH (19:42)
[2019-10-17] MEDS: Simvastatin 10 MG Tab PO SCH (19:42)
[2019-10-17] MEDS: Levothyroxine Sodium 137 MCG TABLET PO SCH (19:42)
[2019-10-18] MEDS: Albuterol/Ipratropium 3.0-0.5 MG/3 ML Neb Soln NEB SCH ×2 (08:01→19:25)
[2019-10-18] MEDS: Citalopram 20 MG Tab PO SCH (08:02)
[2019-10-18] MEDS: Fludrocortisone 0.1 MG Tab PO SCH ×2 (08:02→19:26)
[2019-10-18] MEDS: Furosemide 20 MG Tab PO SCH (08:05)
[2019-10-18] MEDS: Niacin 500 MG Tab PO SCH ×2 (08:05→17:15)
[2019-10-18] MEDS: Potassium Chloride 20 MEQ Tab.ER PO SCH ×3 (08:05→17:14)
[2019-10-18] MEDS: Cyanocobalamin (Vitamin B12) 1,000 MCG Tab PO SCH (08:06)
[2019-10-18] MEDS: Cholecalciferol (Vitamin D3) 25 MCG Tab PO SCH (08:07)
[2019-10-18] MEDS: Calcium Carbonate 500 MG Tab.Chew PO SCH ×2 (13:26→19:26)
[2019-10-18] MEDS: IBUPROFEN 600 MG PO PRN (17:30)
[2019-10-18] MEDS: buPROPion 100 MG Tab PO SCH (19:26)
[2019-10-18] MEDS: Simvastatin 10 MG Tab PO SCH (19:26)
[2019-10-18] MEDS: Levothyroxine Sodium 137 MCG TABLET PO SCH (19:26)
[2019-10-18] MEDS: Menthol/Methyl Salicylate 85 GM Tube TOP PRN (19:27)
[2019-10-18] MEDS: Acetaminophen 325 MG Tab PO PRN (19:27)
[2019-10-19] MEDS: Albuterol/Ipratropium 3.0-0.5 MG/3 ML Neb Soln NEB SCH ×2 (07:24→19:27)
[2019-10-19] MEDS: Citalopram 20 MG Tab PO SCH (07:25)
[2019-10-19] MEDS: Furosemide 20 MG Tab PO SCH (07:25)
[2019-10-19] MEDS: Niacin 500 MG Tab PO SCH ×2 (07:25→17:09)
[2019-10-19] MEDS: Potassium Chloride 20 MEQ Tab.ER PO SCH ×3 (07:25→17:09)
[2019-10-19] MEDS: Fludrocortisone 0.1 MG Tab PO SCH ×2 (07:25→19:27)
[2019-10-19] MEDS: Cyanocobalamin (Vitamin B12) 1,000 MCG Tab PO SCH (07:26)
[2019-10-19] MEDS: Calcium Carbonate 500 MG Tab.Chew PO SCH ×3 (07:26→19:28)
[2019-10-19] MEDS: Cholecalciferol (Vitamin D3) 25 MCG Tab PO SCH (07:26)
[2019-10-19] MEDS: Acetaminophen 325 MG Tab PO PRN (07:27)
[2019-10-19] MEDS: IBUPROFEN 600 MG PO PRN ×2 (11:12→19:29)
[2019-10-19] MEDS: Simvastatin 10 MG Tab PO SCH (19:28)
[2019-10-19] MEDS: buPROPion 100 MG Tab PO SCH (19:28)
[2019-10-19] MEDS: Levothyroxine Sodium 137 MCG TABLET PO SCH (19:28)
[2019-10-19] MEDS: Menthol/Methyl Salicylate 85 GM Tube TOP PRN (19:31)
[2019-10-20] MEDS: Acetaminophen 325 MG Tab PO PRN ×3 (01:49→19:16)
[2019-10-20] MEDS: IBUPROFEN 600 MG PO PRN ×2 (06:02→23:40)
[2019-10-20] MEDS: Citalopram 20 MG Tab PO SCH (07:58)
[2019-10-20] MEDS: Fludrocortisone 0.1 MG Tab PO SCH ×2 (07:59→19:11)
[2019-10-20] MEDS: Furosemide 20 MG Tab PO SCH (07:59)
[2019-10-20] MEDS: Potassium Chloride 20 MEQ Tab.ER PO SCH ×3 (07:59→17:37)
[2019-10-20] MEDS: Calcium Carbonate 500 MG Tab.Chew PO SCH ×3 (08:00→19:11)
[2019-10-20] MEDS: Niacin 500 MG Tab PO SCH ×2 (08:00→17:38)
[2019-10-20] MEDS: Albuterol/Ipratropium 3.0-0.5 MG/3 ML Neb Soln NEB SCH ×2 (08:00→19:09)
[2019-10-20] MEDS: Cyanocobalamin (Vitamin B12) 1,000 MCG Tab PO SCH (08:01)
[2019-10-20] MEDS: Cholecalciferol (Vitamin D3) 25 MCG Tab PO SCH (08:01)
[2019-10-20] MEDS: Levothyroxine Sodium 137 MCG TABLET PO SCH (19:12)
[2019-10-20] MEDS: buPROPion 100 MG Tab PO SCH (19:12)
[2019-10-20] MEDS: Simvastatin 10 MG Tab PO SCH (19:12)
[2019-10-21] MEDS: Albuterol/Ipratropium 3.0-0.5 MG/3 ML Neb Soln NEB SCH ×2 (07:54→19:17)
[2019-10-21] MEDS: IBUPROFEN 600 MG PO PRN ×2 (07:55→17:10)
[2019-10-21] MEDS: Citalopram 20 MG Tab PO SCH (07:55)
[2019-10-21] MEDS: Fludrocortisone 0.1 MG Tab PO SCH ×2 (07:55→19:16)
[2019-10-21] MEDS: Potassium Chloride 20 MEQ Tab.ER PO SCH ×3 (07:56→17:10)
[2019-10-21] MEDS: Calcium Carbonate 500 MG Tab.Chew PO SCH ×3 (07:56→19:15)
[2019-10-21] MEDS: Furosemide 20 MG Tab PO SCH (07:56)
[2019-10-21] MEDS: Niacin 500 MG Tab PO SCH ×2 (07:56→17:10)
[2019-10-21] MEDS: Cyanocobalamin (Vitamin B12) 1,000 MCG Tab PO SCH (07:57)
[2019-10-21] MEDS: Cholecalciferol (Vitamin D3) 25 MCG Tab PO SCH (07:57)
[2019-10-21] MEDS: Acetaminophen 325 MG Tab PO PRN (11:07)
[2019-10-21] MEDS: buPROPion 100 MG Tab PO SCH (19:16)
[2019-10-21] MEDS: Simvastatin 10 MG Tab PO SCH (19:16)
[2019-10-21] MEDS: Levothyroxine Sodium 137 MCG TABLET PO SCH (19:16)
[2019-10-22] MEDS: IBUPROFEN 600 MG PO PRN ×2 (01:32→19:12)
[2019-10-22] MEDS: Potassium Chloride 20 MEQ Tab.ER PO SCH ×3 (07:56→17:36)
[2019-10-22] MEDS: Citalopram 20 MG Tab PO SCH (07:56)
[2019-10-22] MEDS: Fludrocortisone 0.1 MG Tab PO SCH ×2 (07:56→19:11)
[2019-10-22] MEDS: Furosemide 20 MG Tab PO SCH (07:56)
[2019-10-22] MEDS: Cholecalciferol (Vitamin D3) 25 MCG Tab PO SCH (07:57)
[2019-10-22] MEDS: Albuterol/Ipratropium 3.0-0.5 MG/3 ML Neb Soln NEB SCH ×2 (07:57→19:11)
[2019-10-22] MEDS: Niacin 500 MG Tab PO SCH ×2 (07:57→17:36)
[2019-10-22] MEDS: Calcium Carbonate 500 MG Tab.Chew PO SCH ×3 (07:57→19:13)
[2019-10-22] MEDS: Cyanocobalamin (Vitamin B12) 1,000 MCG Tab PO SCH (07:58)
[2019-10-22] MEDS: Levothyroxine Sodium 137 MCG TABLET PO SCH (19:11)
[2019-10-22] MEDS: buPROPion 100 MG Tab PO SCH (19:12)
[2019-10-22] MEDS: Simvastatin 10 MG Tab PO SCH (19:12)
[2019-10-23] MEDS: IBUPROFEN 600 MG PO PRN ×3 (04:12→20:30)
[2019-10-23] MEDS: Albuterol/Ipratropium 3.0-0.5 MG/3 ML Neb Soln NEB SCH ×2 (08:18→19:00)
[2019-10-23] MEDS: Citalopram 20 MG Tab PO SCH (08:18)
[2019-10-23] MEDS: Potassium Chloride 20 MEQ Tab.ER PO SCH ×3 (08:19→17:14)
[2019-10-23] MEDS: Fludrocortisone 0.1 MG Tab PO SCH ×2 (08:19→19:00)
[2019-10-23] MEDS: Furosemide 20 MG Tab PO SCH (08:20)
[2019-10-23] MEDS: Niacin 500 MG Tab PO SCH ×2 (08:20→17:15)
[2019-10-23] MEDS: Cyanocobalamin (Vitamin B12) 1,000 MCG Tab PO SCH (08:21)
[2019-10-23] MEDS: Calcium Carbonate 500 MG Tab.Chew PO SCH ×3 (08:21→19:01)
[2019-10-23] MEDS: Cholecalciferol (Vitamin D3) 25 MCG Tab PO SCH (08:22)
[2019-10-23] MEDS: Levothyroxine Sodium 137 MCG TABLET PO SCH (19:00)
[2019-10-23] MEDS: Simvastatin 10 MG Tab PO SCH (19:00)
[2019-10-23] MEDS: buPROPion 100 MG Tab PO SCH (19:00)
[2019-10-23] MEDS: Acetaminophen 325 MG Tab PO PRN (19:01)
[2019-10-24] MEDS: Albuterol/Ipratropium 3.0-0.5 MG/3 ML Neb Soln NEB SCH ×2 (07:14→19:18)
[2019-10-24] MEDS: Fludrocortisone 0.1 MG Tab PO SCH ×2 (07:52→19:20)
[2019-10-24] MEDS: Potassium Chloride 20 MEQ Tab.ER PO SCH ×3 (07:52→17:25)
[2019-10-24] MEDS: Citalopram 20 MG Tab PO SCH (07:52)
[2019-10-24] MEDS: Furosemide 20 MG Tab PO SCH (07:53)
[2019-10-24] MEDS: Calcium Carbonate 500 MG Tab.Chew PO SCH ×3 (07:54→19:18)
[2019-10-24] MEDS: Niacin 500 MG Tab PO SCH ×2 (07:54→17:27)
[2019-10-24] MEDS: Cyanocobalamin (Vitamin B12) 1,000 MCG Tab PO SCH (07:55)
[2019-10-24] MEDS: Cholecalciferol (Vitamin D3) 25 MCG Tab PO SCH (07:56)
[2019-10-24] MEDS: IBUPROFEN 600 MG PO PRN (18:30)
[2019-10-24] MEDS: Simvastatin 10 MG Tab PO SCH (19:20)
[2019-10-24] MEDS: buPROPion 100 MG Tab PO SCH (19:20)
[2019-10-24] MEDS: Levothyroxine Sodium 137 MCG TABLET PO SCH (19:20)
[2019-10-24] MEDS: Menthol/Methyl Salicylate 85 GM Tube TOP PRN (19:57)
[2019-10-25] MEDS: Albuterol/Ipratropium 3.0-0.5 MG/3 ML Neb Soln NEB SCH ×2 (07:21→19:22)
[2019-10-25] MEDS: Potassium Chloride 20 MEQ Tab.ER PO SCH ×3 (07:34→17:12)
[2019-10-25] MEDS: Niacin 500 MG Tab PO SCH ×2 (07:34→17:13)
[2019-10-25] MEDS: Citalopram 20 MG Tab PO SCH (07:34)
[2019-10-25] MEDS: Calcium Carbonate 500 MG Tab.Chew PO SCH ×3 (07:34→19:23)
[2019-10-25] MEDS: Fludrocortisone 0.1 MG Tab PO SCH ×2 (07:34→19:22)
[2019-10-25] MEDS: Furosemide 20 MG Tab PO SCH (07:34)
[2019-10-25] MEDS: Cholecalciferol (Vitamin D3) 25 MCG Tab PO SCH (07:35)
[2019-10-25] MEDS: Cyanocobalamin (Vitamin B12) 1,000 MCG Tab PO SCH (07:35)
[2019-10-25] MEDS: IBUPROFEN 600 MG PO PRN ×2 (07:47→17:13)
[2019-10-25] MEDS: Acetaminophen 325 MG Tab PO PRN (11:35)
[2019-10-25] MEDS: Simvastatin 10 MG Tab PO SCH (19:23)
[2019-10-25] MEDS: buPROPion 100 MG Tab PO SCH (19:23)
[2019-10-25] MEDS: Levothyroxine Sodium 137 MCG TABLET PO SCH (19:23)
[2019-10-26] MEDS: IBUPROFEN 600 MG PO PRN ×2 (02:15→19:23)
[2019-10-26] MEDS: Potassium Chloride 20 MEQ Tab.ER PO SCH ×3 (07:58→17:36)
[2019-10-26] MEDS: Furosemide 20 MG Tab PO SCH (07:58)
[2019-10-26] MEDS: Citalopram 20 MG Tab PO SCH (07:58)
[2019-10-26] MEDS: Fludrocortisone 0.1 MG Tab PO SCH ×2 (07:58→19:22)
[2019-10-26] MEDS: Albuterol/Ipratropium 3.0-0.5 MG/3 ML Neb Soln NEB SCH ×2 (07:59→19:21)
[2019-10-26] MEDS: Calcium Carbonate 500 MG Tab.Chew PO SCH ×3 (08:00→19:22)
[2019-10-26] MEDS: Cyanocobalamin (Vitamin B12) 1,000 MCG Tab PO SCH (08:00)
[2019-10-26] MEDS: Cholecalciferol (Vitamin D3) 25 MCG Tab PO SCH (08:00)
[2019-10-26] MEDS: Niacin 500 MG Tab PO SCH ×2 (08:00→17:36)
[2019-10-26] MEDS: Levothyroxine Sodium 137 MCG TABLET PO SCH (19:22)
[2019-10-26] MEDS: Simvastatin 10 MG Tab PO SCH (19:23)
[2019-10-26] MEDS: buPROPion 100 MG Tab PO SCH (19:23)
[2019-10-26] MEDS: Menthol/Methyl Salicylate 85 GM Tube TOP PRN (19:25)
[2019-10-26] MEDS: Aluminum Hydroxide/Magnesium Hydroxide/Simethicone Susp 30 ML Cup PO PRN (21:13)
[2019-10-26] MEDS: Acetaminophen 325 MG Tab PO PRN (23:36)
[2019-10-27] MEDS: Albuterol/Ipratropium 3.0-0.5 MG/3 ML Neb Soln NEB SCH ×2 (07:43→19:40)
[2019-10-27] MEDS: Fludrocortisone 0.1 MG Tab PO SCH ×2 (08:05→19:40)
[2019-10-27] MEDS: Citalopram 20 MG Tab PO SCH (08:05)
[2019-10-27] MEDS: Potassium Chloride 20 MEQ Tab.ER PO SCH ×3 (08:05→17:20)
[2019-10-27] MEDS: Niacin 500 MG Tab PO SCH ×2 (08:07→17:20)
[2019-10-27] MEDS: Furosemide 20 MG Tab PO SCH (08:07)
[2019-10-27] MEDS: Calcium Carbonate 500 MG Tab.Chew PO SCH ×3 (08:08→19:40)
[2019-10-27] MEDS: Cyanocobalamin (Vitamin B12) 1,000 MCG Tab PO SCH (08:08)
[2019-10-27] MEDS: Cholecalciferol (Vitamin D3) 25 MCG Tab PO SCH (08:09)
[2019-10-27] MEDS: Levothyroxine Sodium 137 MCG TABLET PO SCH (19:40)
[2019-10-27] MEDS: buPROPion 100 MG Tab PO SCH (19:41)
[2019-10-27] MEDS: Menthol/Methyl Salicylate 85 GM Tube TOP PRN (19:41)
[2019-10-27] MEDS: Simvastatin 10 MG Tab PO SCH (19:41)
[2019-10-27] MEDS: IBUPROFEN 600 MG PO PRN (19:42)
[2019-10-28] MEDS: Acetaminophen 325 MG Tab PO PRN (06:00)
[2019-10-28] MEDS: IBUPROFEN 600 MG PO PRN ×2 (08:08→19:42)
[2019-10-28] MEDS: Potassium Chloride 20 MEQ Tab.ER PO SCH ×3 (08:09→17:45)
[2019-10-28] MEDS: Furosemide 20 MG Tab PO SCH (08:09)
[2019-10-28] MEDS: Citalopram 20 MG Tab PO SCH (08:09)
[2019-10-28] MEDS: Fludrocortisone 0.1 MG Tab PO SCH ×2 (08:09→19:38)
[2019-10-28] MEDS: Albuterol/Ipratropium 3.0-0.5 MG/3 ML Neb Soln NEB SCH ×2 (08:10→19:38)
[2019-10-28] MEDS: Calcium Carbonate 500 MG Tab.Chew PO SCH ×4 (08:10→19:39)
[2019-10-28] MEDS: Niacin 500 MG Tab PO SCH ×2 (08:10→17:46)
[2019-10-28] MEDS: Cholecalciferol (Vitamin D3) 25 MCG Tab PO SCH (08:10)
[2019-10-28] MEDS: Cyanocobalamin (Vitamin B12) 1,000 MCG Tab PO SCH (08:11)
[2019-10-28] MEDS: buPROPion 100 MG Tab PO SCH (19:39)
[2019-10-28] MEDS: Levothyroxine Sodium 137 MCG TABLET PO SCH (19:39)
[2019-10-28] MEDS: Simvastatin 10 MG Tab PO SCH (19:40)
[2019-10-29] MEDS: Albuterol/Ipratropium 3.0-0.5 MG/3 ML Neb Soln NEB SCH ×2 (07:20→19:20)
[2019-10-29] MEDS: Citalopram 20 MG Tab PO SCH (07:20)
[2019-10-29] MEDS: Niacin 500 MG Tab PO SCH ×2 (07:21→17:08)
[2019-10-29] MEDS: Furosemide 20 MG Tab PO SCH (07:21)
[2019-10-29] MEDS: Potassium Chloride 20 MEQ Tab.ER PO SCH ×3 (07:21→17:08)
[2019-10-29] MEDS: Fludrocortisone 0.1 MG Tab PO SCH ×2 (07:21→19:20)
[2019-10-29] MEDS: Calcium Carbonate 500 MG Tab.Chew PO SCH ×3 (07:22→19:21)
[2019-10-29] MEDS: Cholecalciferol (Vitamin D3) 25 MCG Tab PO SCH (07:23)
[2019-10-29] MEDS: Cyanocobalamin (Vitamin B12) 1,000 MCG Tab PO SCH (07:23)
[2019-10-29] MEDS: IBUPROFEN 600 MG PO PRN ×2 (07:23→17:09)
--- NOTE | 2019-10-29 10:28 | PCM.PN ---
- General Info Date of Service: 10/29/19 Admission Dx/Problem (Free Text): 1. Recurrent C. difficile colitis 2. Chronic diarrhea 3. Myotonic dystrophy with secondary weakness Functional Status: Reports: Pain Controlled, Tolerating Diet, Ambulating, Urinating, Incentive Spirometry. Denies: New Symptoms Pain Score: 0 - Review of Systems General: Reports: Weakness (Stable chronic), Appetite (Good). Denies: Fever, Fatigue, Malaise, Chills, Night Sweats HEENT: Reports: No Symptoms. Denies: Contact Lenses, Ear Pain, Eye Pain, Glasses, Headaches, Post Nasal Drip, Sinus Congestion, Sore Throat, Rhinitis, Visual Changes Pulmonary: Reports: No Symptoms. Denies: Shortness of Breath, Pleuritic Chest Pain, Cough, Sputum, Hemoptysis, Wheezing Cardiovascular: Reports: Edema (Stable dependent). Denies: Palpitations, Dyspnea on Exertion, Orthopnea, Lightheadedness Gastrointestinal: Reports: No Symptoms. Denies: Abdominal Pain, Constipation, Decreased Appetite, Diarrhea, Difficulty Swallowing, Flatus, Hematochezia, Melena, Nausea, Vomiting Genitourinary: Reports: No Symptoms. Denies: Dysuria, Frequency, Burning, Pain , Urgency, Incontinence, Hematuria, Retention, Flank Pain Musculoskeletal: Reports: No Symptoms. Denies: Neck Pain, Shoulder Pain, Arm Pain, Back Pain, Leg Pain Skin: Reports: No Symptoms. Denies: Diaphoresis, Bruising, Pruritis Neurological: Reports: Difficulty Walking (Walker required), Weakness (Stable chronic). Denies: Confusion, Dizziness, Headache, Paresthesia Psychiatric: Reports: No Symptoms. Denies: Confusion, Depression, Anxiety, Agitation, Cravings, Hallucinations - Patient Data Vitals - Most Recent: Last Vital Signs Temp 36.0 C 10/26/19 08:00 Pulse 74 10/26/19 08:00 Resp 20 10/26/19 08:00 BP 107/61 10/26/19 08:00 Pulse Ox 93 L 10/26/19 08:00 Weight - Most Recent: 93.939 kg I&O - Last 24 Hours: Intake & Output 10/28/19 10/29/19 10/29/19 22:59 06:59 14:59 Intake Total 880 120 420 Balance 880 120 420 Imaging Impressions - Last 24 Hours: None Lab Results Last 24 Hours: None Sandor Results Last 24 Hours: None Med Orders - Current: Current Medications Acetaminophen (Tylenol) 650 mg PO Q4H PRN PRN Reason: Pain Last Admin: 10/28/19 06:00 Dose: 650 mg Al Hydroxide/Mg Hydroxide (Mag-Al Plus) 30 ml PO Q4H PRN PRN Reason: Indigestion Last Admin: 10/26/19 21:13 Dose: 30 ml Albuterol/Ipratropium (Duoneb 3.0-0.5 Mg/3 Ml) 3 ml NEB BIDRT [facility] Last Admin: 10/29/19 07:20 Dose: 3 ml Albuterol/Ipratropium (Duoneb 3.0-0.5 Mg/3 Ml) 3 ml NEB Q4HRRT PRN PRN Reason: Dyspnea Last Admin: 07/23/19 13:16 Dose: 3 ml Bupropion HCl (Wellbutrin) 150 mg PO BEDTIME [facility] Last Admin: 10/28/19 19:39 Dose: 150 mg Calcium Carbonate/Glycine (Tums) 500 mg PO TID@0800,1400,2000 [facility] Last Admin: 10/29/19 07:22 Dose: 500 mg Cholecalciferol (Vitamin D3) 25 mcg PO DAILY [facility] Last Admin: 10/29/19 07:23 Dose: 25 mcg Citalopram Hydrobromide (Celexa) 20 mg PO QAM [facility] Last Admin: 10/29/19 07:20 Dose: 20 mg Cyanocobalamin (Vitamin B12) 1,000 mcg PO QAM [facility] Last Admin: 10/29/19 07:23 Dose: 1,000 mcg Diphenoxylate HCl/Atropine (Lomotil 0.025-2.5 Mg) 1 tab PO TID PRN PRN Reason: Diarrhea Last Admin: 09/29/19 09:52 Dose: 1 tab Fludrocortisone Acetate (Florinef) 0.1 mg PO BEDTIME [facility] Last Admin: 10/28/19 19:38 Dose: 0.1 mg Fludrocortisone Acetate (Florinef) 0.2 mg PO QAM [facility] Last Admin: 10/29/19 07:21 Dose: 0.2 mg Furosemide (Lasix) 20 mg PO DAILY [facility] Last Admin: 10/29/19 07:21 Dose: 20 mg Ibuprofen (Motrin) 600 mg PO Q6H PRN PRN Reason: Breakthrough Pain Last Admin: 10/29/19 07:23 Dose: 600 mg Methyl Salicylate (Icy Hot Cream) 0 gm TOP QID PRN PRN Reason: Pain (mild 1-3) Last Admin: 10/27/19 19:41 Dose: 1 applic Niacin (Niacin) 500 mg PO BID [facility] Last Admin: 10/29/19 07:21 Dose: 500 mg Levothyroxine Sodium (137 Mcg Tablet) 137 mcg PO BEDTIME [facility] Last Admin: 10/28/19 19:39 Dose: 137 mcg Potassium Chloride (Klor-Con M20) 40 meq PO TID [facility] Last Admin: 10/29/19 07:21 Dose: 40 meq Simvastatin (Zocor) 10 mg PO BEDTIME [facility] Last Admin: 10/28/19 19:40 Dose: 10 mg Discontinued Medications Betamethasone/Clotrimazole (Lotrisone) 0 gm TOP Q12HR [facility] Last Admin: 07/23/19 08:20 Dose: 1 applic Bisacodyl (Dulcolax) 10 mg PO ONETIME ONE Stop: 09/21/19 18:01 Last Admin: 09/21/19 17:41 Dose: 10 mg Bisacodyl (Dulcolax) 10 mg PO ONETIME ONE Stop: 09/22/19 18:01 Last Admin: 09/22/19 17:24 Dose: 10 mg Budesonide (Pulmicort) 0.5 mg NEB Q12HR [facility] Stop: 08/06/19 20:01 Last Admin: 08/06/19 19:35 Dose: 0.5 mg Cholecalciferol (Vitamin D3) 1,000 mcg PO QAM [facility] Last Admin: 05/26/19 08:49 Dose: Not Given Guaifenesin/Dextromethorphan (Robitussin Dm) 10 ml PO Q4H PRN PRN Reason: Cough Last Admin: 07/20/19 19:28 Dose: 10 ml Guaifenesin/Pseudoephedrine HCl (Mucinex D Er 600-60 Mg) 1 tab PO Q12H [facility] Stop: 07/31/19 20:01 Last Admin: 07/31/19 19:30 Dose: 1 tab Influenza Virus Vaccine (Fluzone Quad Syringe) 60 mcg IM .ONCE ONE Stop: 09/07/19 14:01 Last Admin: 09/07/19 13:37 Dose: 60 mcg Vancomycin 125mg (Capsules) 1 each PO QID [facility] Stop: 06/29/19 16:01 Last Admin: 06/29/19 17:37 Dose: 1 each Fidaxomicin (Dificid () 200mg Tablet) 1 each PO BID [facility] Stop: 07/09/19 08:01 Last Admin: 07/09/19 07:24 Dose: 1 each Benzonatate 200mg (Cap Own Med ) 200 each PO Q12HR [facility] Stop: 08/06/19 20:01 Last Admin: 08/06/19 19:45 Dose: Not Given Nystatin And Triamcinolone Crm ( Mycolog) Own Med 1 each TOP Q12HR [facility] Stop: 08/02/19 20:01 Last Admin: 08/02/19 19:16 Dose: 1 each Nystatin (Nystatin Crm) 1 gm TOP BID [facility] Last Admin: 08/04/19 07:52 Dose: 1 applic Nystatin (Nystatin Crm) 1 gm TOP Q12HR [facility] Last Admin: 08/09/19 07:36 Dose: 1 applic Polyethylene Glycol (Miralax) 238 gm PO ONETIME ONE Stop: 09/22/19 12:01 Last Admin: 09/22/19 11:36 Dose: 238 gram Potassium Chloride (Potassium Chloride Solution) 40 meq PO TID@08,14,20 [facility] Last Admin: 08/03/19 14:18 Dose: 40 meq - Exam Quality Assessment: Supplemental Oxygen, DVT Prophylaxis. No: Urine Catheter, Restraints General: Alert, Oriented, Cooperative, No Acute Distress HEENT: Pupils Equal, Pupils Reactive, EOMI, Mucous Membr. Moist/[place], Other ( Complete absent dentition with dentures uppers and lowers) Neck: Supple, Trachea Midline, No JVD, No Thyromegaly, +2 Carotid Pulse wo Bruit. No: Lymphadenopathy Lungs: Clear to Auscultation, Normal Respiratory Effort. No: Rub Cardiovascular: Regular Rate, Regular Rhythm, No Murmurs. No: Gallops, Rubs GI/Abdominal Exam: Normal Bowel Sounds, Soft, Non-Tender, No Organomegaly, No Distention, No Abnormal Bruit, No Mass, Other (Obese). No: Guarding (Female) Exam: Deferred Back Exam: Full Range of Motion, Other (Mild kyphoscoliosis). No: CVA Tenderness (L), CVA Tenderness (R), Paraspinal Tenderness, Vertebral Tenderness Extremities: Normal Range of Motion, Non-Tender, Normal Capillary Refill, Pedal Edema (Stable lymphedema of the lower extremities). No: Lurdes's Sign Peripheral Pulses: 2+: Radial (L), Radial (R) Skin: Warm, Dry, Intact. No: Ecchymosis Neurological: No New Focal Deficit Psy/Mental Status: Alert, Normal Affect, Normal Mood. No: Agitated, Hallucinations, Withdrawal Symptoms - Problem List & Annotations (1) C. difficile colitis SNOMED Code(s): 097819655 Code(s): A04.72 - ENTEROCOLITIS D/T CLOSTRIDIUM DIFFICILE, NOT SPCF RECUR Status: Chronic Priority: Medium Current Visit: Yes Onset Date: Annotation/Comment:: Colonoscopy completed on 09/23/19 with excision of a tubular adenoma from the ascending colon. No apparent evidence of significant colitis by this procedure, however I could not find any record of cerebral biopsies as previously requested. The patient has since been placed off of isolation precautions. Her diarrhea has not returned. 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 Her room has been properly disinfected. Patient has been treated previously with multiple courses of Flagyl and vancomycin with the patient likely a chronic carrier. Central laboratories previously refused repeat stool C. difficile analysis since the patient no longer had diarrhea and that this evaluation may remain positive for several months. This issue was previously brought up in medical staff for further review and discussion with no further follow-up at this time. Continue to observe closely with repeat antibiotic treatment, stool transplant, etc. depending on her clinical course. (2) Steinert myotonic dystrophy syndrome SNOMED Code(s): 744405996 Code(s): G71.11 - MYOTONIC MUSCULAR DYSTROPHY Status: Chronic Priority: Medium Current Visit: Yes Annotation/Comment:: Stable by history and today' s exam. Physical therapy in effect. Continue current medical therapy. (3) Gastroesophageal reflux disease SNOMED Code(s): 582799360 Code(s): K21.9 - GASTRO-ESOPHAGEAL REFLUX DISEASE WITHOUT ESOPHAGITIS Status: Acute Priority: Medium Current Visit: Yes Annotation/Comment:: There occasional nonspecific abdominal pain with current when necessary ibuprofen therapy. Tums has been started as GI prophylaxis with overall good results. Otherwise stable by history despite discontinuation of Reglan therapy. No other GI medications required at this time with previous discontinuation of Prilosec, etc. secondary to her recurrent C. difficile colitis. (4) CHF, Congestive heart failure SNOMED Code(s): 90515251 Code(s): I50.9 - HEART FAILURE, UNSPECIFIED Status: Chronic Priority: Medium Current Visit: Yes Annotation/Comment:: Despite stable lateral wall cardiac ischemia by EKG since April 2019 difficult to assess secondary to her bifascicular bundle-branch block. No chest pain or anginal type symptoms. Stable CHF by clinical exam and history with no evidence of significant CHF by today's blood work and stable mild borderline centralized CHF. Stable dependent edema and weight since 12/10/17. Her weight continues to be variable secondary to previous dietary noncompliance, however no direct evidence of significant weight gain or CHF as above. Note previous discontinuation of high protein Glucerna supplements as snacks. Dietary consultation in effect. Activity level is overall low. Continue to observe closely. No recent anginal complaints or current clinical evidence of CHF as above. Note previous history of PVCs, complete right bundle branch block/bifascicular bundle-branch block, first- degree AV block, severe dyslipidemia hypokalemia, hypophosphatemia, and hyponatremia. Continue to observe for now with no further change in medical therapy. Cardiology workup and/or consultation depending on her clinical course. (5) COPD (chronic obstructive pulmonary disease) SNOMED Code(s): 23840038 Code(s): J44.9 - CHRONIC OBSTRUCTIVE PULMONARY DISEASE, UNSPECIFIED Status : Chronic Priority: Medium Current Visit: Yes Qualifiers: COPD type: emphysema Emphysema type: panlobular Qualified Code(s): J43.1 - Panlobular emphysema Annotation/Comment:: O2 dependent COPD stable by history with no bronchitic symptoms at this time. Continue current medical therapy. Patient does have a previous history of distant postoperative respiratory distress, although no complications after previous dental surgery. (6) Hyperglycemia SNOMED Code(s): 78608616 Code(s): R73.9 - HYPERGLYCEMIA, UNSPECIFIED Status: Chronic Priority: Medium Current Visit: Yes Onset Date: 06/29/15 Annotation/Comment:: Dietary consultation is in effect as above. (7) Hyperlipidemia SNOMED Code(s): 95479054 Code(s): E78.5 - HYPERLIPIDEMIA, UNSPECIFIED Status: Chronic Priority: Medium Current Visit: Yes Annotation/Comment:: Lipid Panel in April 2019 showed mild persistent hypertriglyceridemia. Previous history of severe dyslipidemia with aggressive medical therapy at this time. Dietary compliance once again strongly encouraged. No change in medical therapy for now with previous history of CPK elevation. (8) Hypothyroidism SNOMED Code(s): 39222817 Code(s): E03.9 - HYPOTHYROIDISM, UNSPECIFIED Status: Chronic Priority: Medium Current Visit: Yes Annotation/Comment:: TSH normal in April 2019. No other thyroid type symptoms. (9) Mixed anxiety and depressive disorder SNOMED Code(s): 939358395 Code(s): F41.8 - OTHER SPECIFIED ANXIETY DISORDERS Status: Chronic Priority: Medium Current Visit: Yes Annotation/Comment:: Stable by history. Patient is still relatively active with physical therapy. Continue to observe closely by nursing staff with no significant depression at this time with patient often alone in her room. (10) Orthostatic hypotension SNOMED Code(s): 39516971 Code(s): I95.1 - ORTHOSTATIC HYPOTENSION Status: Chronic Priority: Medium Current Visit: Yes Annotation/Comment:: No recent falls or injuries. Previous problems with recurrent falls including right ankle fracture on . The patient and nursing staff are continuing strict compliance with previously ordered fall precautions, walker use, etc. Continue activity restrictions as per physical therapy, and occupational therapy. Continue current Florinef with otherwise relatively stable decreased systolic blood pressures. No change in therapy. (11) Tardive dyskinesia SNOMED Code(s): 544724413 Code(s): G24.01 - DRUG INDUCED SUBACUTE DYSKINESIA Status: Chronic Priority: Medium Current Visit: Yes Annotation/Comment:: Stable by history. 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 Neurological status is otherwise stable.. Note that patient does have complete dentures uppers and lowers, which does tend to aggravate her problem. No significant clinical relevance at this time with no change in medical therapy for now. (12) Hypoalbuminemia SNOMED Code(s): 203914086 Code(s): E88.09 - OTH DISORDERS OF PLASMA-PROTEIN METABOLISM, NEC Status: Chronic Priority: Medium Current Visit: Yes Annotation/Comment:: Glucerna high-protein has been discontinued per recommendations from dietitian secondary to persistent weight gain. Continue high-protein diet as above. Observe for now. (13) Macrocytosis SNOMED Code(s): 978490990 Code(s): D75.89 - OTHER SPECIFIED DISEASES OF BLOOD AND BLOOD-FORMING ORGANS Status: Chronic Priority: High Current Visit: Yes Onset Date: 06/29/15 Annotation/Comment:: No anemia with persistent macrocytosis however normal vitamin B 12 and folic acid levels previously Mild intermittent thrombocytopenia , which is currently nonproblematic. Continue routine blood work and vitamin B- 12 supplementation. (14) Osteoarthritis SNOMED Code(s): 745364017 Code(s): M19.90 - UNSPECIFIED OSTEOARTHRITIS, UNSPECIFIED SITE Status: Chronic Priority: Medium Current Visit: Yes Annotation/Comment:: No complaints today with previous intermittent mild generalized arthralgias, however nonproblematic at this time with the patient nonsymptomatic despite discontinuation of Ultram. PT in effect as above. Note status post bilateral ankle ORIF secondary to fractures. Previous recurrent falls in February 2019 have improved with no recent significant falls or injuries. (15) Peptic reflux disease SNOMED Code(s): 580289974 Code(s): K21.9 - GASTRO-ESOPHAGEAL REFLUX DISEASE WITHOUT ESOPHAGITIS Status: Chronic Priority: Medium Current Visit: Yes Annotation/Comment:: Stable by history - Problem List Review Problem List Initiated/Reviewed/Updated: Yes - Assessment Assessment:: As above - Plan Plan:: As above. Patient is also recertified for an additional 2 months of swing bed care with chronic placement secondary to multiple illnesses as above. Blood work to be repeated in 2 months at time of next rounds. Yearly blood work due in April.
[2019-10-29] MEDS: Acetaminophen 325 MG Tab PO PRN ×2 (11:07→19:25)
[2019-10-29] MEDS: buPROPion 100 MG Tab PO SCH (19:20)
[2019-10-29] MEDS: Levothyroxine Sodium 137 MCG TABLET PO SCH (19:20)
[2019-10-29] MEDS: Simvastatin 10 MG Tab PO SCH (19:21)
[2019-10-30] MEDS: Albuterol/Ipratropium 3.0-0.5 MG/3 ML Neb Soln NEB SCH ×2 (07:16→19:18)
[2019-10-30] MEDS: Citalopram 20 MG Tab PO SCH (07:16)
[2019-10-30] MEDS: Potassium Chloride 20 MEQ Tab.ER PO SCH ×3 (07:17→17:17)
[2019-10-30] MEDS: Fludrocortisone 0.1 MG Tab PO SCH ×2 (07:17→19:18)
[2019-10-30] MEDS: Furosemide 20 MG Tab PO SCH (07:17)
[2019-10-30] MEDS: Cholecalciferol (Vitamin D3) 25 MCG Tab PO SCH (07:18)
[2019-10-30] MEDS: Calcium Carbonate 500 MG Tab.Chew PO SCH ×3 (07:18→19:17)
[2019-10-30] MEDS: Cyanocobalamin (Vitamin B12) 1,000 MCG Tab PO SCH (07:18)
[2019-10-30] MEDS: Niacin 500 MG Tab PO SCH ×2 (07:18→17:18)
[2019-10-30] MEDS: IBUPROFEN 600 MG PO PRN ×2 (07:19→17:16)
[2019-10-30] MEDS: Acetaminophen 325 MG Tab PO PRN (11:11)
[2019-10-30] MEDS: Aluminum Hydroxide/Magnesium Hydroxide/Simethicone Susp 30 ML Cup PO PRN (11:12)
[2019-10-30] MEDS: Menthol/Methyl Salicylate 85 GM Tube TOP PRN (19:17)
[2019-10-30] MEDS: Simvastatin 10 MG Tab PO SCH (19:18)
[2019-10-30] MEDS: buPROPion 100 MG Tab PO SCH (19:18)
[2019-10-30] MEDS: Levothyroxine Sodium 137 MCG TABLET PO SCH (19:18)
[2019-10-31] MEDS: Albuterol/Ipratropium 3.0-0.5 MG/3 ML Neb Soln NEB SCH ×2 (07:20→19:46)
[2019-10-31] MEDS: Citalopram 20 MG Tab PO SCH (07:21)
[2019-10-31] MEDS: Furosemide 20 MG Tab PO SCH (07:22)
[2019-10-31] MEDS: Potassium Chloride 20 MEQ Tab.ER PO SCH ×3 (07:22→17:03)
[2019-10-31] MEDS: IBUPROFEN 600 MG PO PRN ×2 (07:22→17:02)
[2019-10-31] MEDS: Fludrocortisone 0.1 MG Tab PO SCH ×2 (07:22→19:47)
[2019-10-31] MEDS: Cyanocobalamin (Vitamin B12) 1,000 MCG Tab PO SCH (07:23)
[2019-10-31] MEDS: Niacin 500 MG Tab PO SCH ×2 (07:23→17:03)
[2019-10-31] MEDS: Calcium Carbonate 500 MG Tab.Chew PO SCH ×3 (07:23→19:47)
[2019-10-31] MEDS: Cholecalciferol (Vitamin D3) 25 MCG Tab PO SCH (07:23)
[2019-10-31] MEDS: Aluminum Hydroxide/Magnesium Hydroxide/Simethicone Susp 30 ML Cup PO PRN (09:56)
[2019-10-31] MEDS: Acetaminophen 325 MG Tab PO PRN (11:18)
[2019-10-31] MEDS: Simvastatin 10 MG Tab PO SCH (19:46)
[2019-10-31] MEDS: Menthol/Methyl Salicylate 85 GM Tube TOP PRN (19:47)
[2019-10-31] MEDS: Levothyroxine Sodium 137 MCG TABLET PO SCH (19:47)
[2019-10-31] MEDS: buPROPion 100 MG Tab PO SCH (19:47)
[2019-11-01] MEDS: IBUPROFEN 600 MG PO PRN ×2 (08:21→17:10)
[2019-11-01] MEDS: Citalopram 20 MG Tab PO SCH (08:22)
[2019-11-01] MEDS: Fludrocortisone 0.1 MG Tab PO SCH ×2 (08:22→19:13)
[2019-11-01] MEDS: Furosemide 20 MG Tab PO SCH (08:22)
[2019-11-01] MEDS: Potassium Chloride 20 MEQ Tab.ER PO SCH ×3 (08:22→17:09)
[2019-11-01] MEDS: Albuterol/Ipratropium 3.0-0.5 MG/3 ML Neb Soln NEB SCH ×2 (08:24→19:12)
[2019-11-01] MEDS: Calcium Carbonate 500 MG Tab.Chew PO SCH ×4 (08:25→19:13)
[2019-11-01] MEDS: Cyanocobalamin (Vitamin B12) 1,000 MCG Tab PO SCH (08:26)
[2019-11-01] MEDS: Niacin 500 MG Tab PO SCH ×2 (08:26→17:09)
[2019-11-01] MEDS: Cholecalciferol (Vitamin D3) 25 MCG Tab PO SCH (08:26)
[2019-11-01] MEDS: Aluminum Hydroxide/Magnesium Hydroxide/Simethicone Susp 30 ML Cup PO PRN (08:47)
[2019-11-01] MEDS: Simvastatin 10 MG Tab PO SCH (19:12)
[2019-11-01] MEDS: buPROPion 100 MG Tab PO SCH (19:13)
[2019-11-01] MEDS: Levothyroxine Sodium 137 MCG TABLET PO SCH (19:13)
[2019-11-01] MEDS: Acetaminophen 325 MG Tab PO PRN (19:14)
[2019-11-02] MEDS: IBUPROFEN 600 MG PO PRN ×2 (02:58→17:36)
[2019-11-02] MEDS: Albuterol/Ipratropium 3.0-0.5 MG/3 ML Neb Soln NEB SCH ×2 (08:04→19:20)
[2019-11-02] MEDS: Citalopram 20 MG Tab PO SCH (08:04)
[2019-11-02] MEDS: Fludrocortisone 0.1 MG Tab PO SCH ×2 (08:04→19:21)
[2019-11-02] MEDS: Potassium Chloride 20 MEQ Tab.ER PO SCH ×3 (08:04→17:36)
[2019-11-02] MEDS: Furosemide 20 MG Tab PO SCH (08:05)
[2019-11-02] MEDS: Niacin 500 MG Tab PO SCH ×2 (08:05→17:36)
[2019-11-02] MEDS: Calcium Carbonate 500 MG Tab.Chew PO SCH ×4 (08:05→19:21)
[2019-11-02] MEDS: Cholecalciferol (Vitamin D3) 25 MCG Tab PO SCH (08:06)
[2019-11-02] MEDS: Acetaminophen 325 MG Tab PO PRN (08:06)
[2019-11-02] MEDS: Cyanocobalamin (Vitamin B12) 1,000 MCG Tab PO SCH (08:06)
[2019-11-02] MEDS: Menthol/Methyl Salicylate 85 GM Tube TOP PRN (19:20)
[2019-11-02] MEDS: buPROPion 100 MG Tab PO SCH (19:21)
[2019-11-02] MEDS: Levothyroxine Sodium 137 MCG TABLET PO SCH (19:21)
[2019-11-02] MEDS: Simvastatin 10 MG Tab PO SCH (19:21)
[2019-11-03] MEDS: IBUPROFEN 600 MG PO PRN ×3 (00:16→17:04)
[2019-11-03] MEDS: Citalopram 20 MG Tab PO SCH (07:52)
[2019-11-03] MEDS: Potassium Chloride 20 MEQ Tab.ER PO SCH ×3 (07:53→17:04)
[2019-11-03] MEDS: Fludrocortisone 0.1 MG Tab PO SCH ×2 (07:53→20:03)
[2019-11-03] MEDS: Albuterol/Ipratropium 3.0-0.5 MG/3 ML Neb Soln NEB SCH ×2 (07:53→20:02)
[2019-11-03] MEDS: Furosemide 20 MG Tab PO SCH (07:54)
[2019-11-03] MEDS: Calcium Carbonate 500 MG Tab.Chew PO SCH ×3 (07:54→20:04)
[2019-11-03] MEDS: Niacin 500 MG Tab PO SCH ×2 (07:54→17:04)
[2019-11-03] MEDS: Cyanocobalamin (Vitamin B12) 1,000 MCG Tab PO SCH (07:54)
[2019-11-03] MEDS: Cholecalciferol (Vitamin D3) 25 MCG Tab PO SCH (07:55)
[2019-11-03] MEDS: Acetaminophen 325 MG Tab PO PRN (11:01)
[2019-11-03] MEDS: Levothyroxine Sodium 137 MCG TABLET PO SCH (20:04)
[2019-11-03] MEDS: Simvastatin 10 MG Tab PO SCH (20:05)
[2019-11-03] MEDS: buPROPion 100 MG Tab PO SCH (20:05)
[2019-11-04] MEDS: IBUPROFEN 600 MG PO PRN (01:38)
[2019-11-04] MEDS: Fludrocortisone 0.1 MG Tab PO SCH ×2 (07:57→19:40)
[2019-11-04] MEDS: Furosemide 20 MG Tab PO SCH (07:57)
[2019-11-04] MEDS: Citalopram 20 MG Tab PO SCH (07:57)
[2019-11-04] MEDS: Potassium Chloride 20 MEQ Tab.ER PO SCH ×3 (07:57→17:40)
[2019-11-04] MEDS: Albuterol/Ipratropium 3.0-0.5 MG/3 ML Neb Soln NEB SCH ×2 (07:58→19:40)
[2019-11-04] MEDS: Cholecalciferol (Vitamin D3) 25 MCG Tab PO SCH (07:58)
[2019-11-04] MEDS: Calcium Carbonate 500 MG Tab.Chew PO SCH ×3 (07:58→19:42)
[2019-11-04] MEDS: Niacin 500 MG Tab PO SCH ×2 (07:58→17:40)
[2019-11-04] MEDS: Cyanocobalamin (Vitamin B12) 1,000 MCG Tab PO SCH (07:58)
[2019-11-04] MEDS: Acetaminophen 325 MG Tab PO PRN (07:59)
[2019-11-04] MEDS: Levothyroxine Sodium 137 MCG TABLET PO SCH (19:41)
[2019-11-04] MEDS: buPROPion 100 MG Tab PO SCH (19:43)
[2019-11-04] MEDS: Simvastatin 10 MG Tab PO SCH (19:43)
[2019-11-05] MEDS: IBUPROFEN 600 MG PO PRN ×2 (01:07→19:30)
[2019-11-05] MEDS: Acetaminophen 325 MG Tab PO PRN (06:28)
[2019-11-05] MEDS: Furosemide 20 MG Tab PO SCH (07:45)
[2019-11-05] MEDS: Fludrocortisone 0.1 MG Tab PO SCH ×2 (07:45→19:28)
[2019-11-05] MEDS: Potassium Chloride 20 MEQ Tab.ER PO SCH ×3 (07:45→17:33)
[2019-11-05] MEDS: Citalopram 20 MG Tab PO SCH (07:45)
[2019-11-05] MEDS: Albuterol/Ipratropium 3.0-0.5 MG/3 ML Neb Soln NEB SCH ×2 (07:46→19:28)
[2019-11-05] MEDS: Cholecalciferol (Vitamin D3) 25 MCG Tab PO SCH (07:46)
[2019-11-05] MEDS: Niacin 500 MG Tab PO SCH ×2 (07:46→17:33)
[2019-11-05] MEDS: Cyanocobalamin (Vitamin B12) 1,000 MCG Tab PO SCH (07:47)
[2019-11-05] MEDS: Calcium Carbonate 500 MG Tab.Chew PO SCH ×3 (07:47→19:29)
[2019-11-05] MEDS: Levothyroxine Sodium 137 MCG TABLET PO SCH (19:28)
[2019-11-05] MEDS: buPROPion 100 MG Tab PO SCH (19:29)
[2019-11-05] MEDS: Simvastatin 10 MG Tab PO SCH (19:29)
[2019-11-05] MEDS: Menthol/Methyl Salicylate 85 GM Tube TOP PRN (19:32)
[2019-11-06] MEDS: Albuterol/Ipratropium 3.0-0.5 MG/3 ML Neb Soln NEB SCH ×2 (07:39→19:01)
[2019-11-06] MEDS: Citalopram 20 MG Tab PO SCH (07:39)
[2019-11-06] MEDS: Niacin 500 MG Tab PO SCH ×2 (07:40→17:04)
[2019-11-06] MEDS: Furosemide 20 MG Tab PO SCH (07:40)
[2019-11-06] MEDS: Fludrocortisone 0.1 MG Tab PO SCH ×2 (07:40→19:02)
[2019-11-06] MEDS: Potassium Chloride 20 MEQ Tab.ER PO SCH ×3 (07:40→17:04)
[2019-11-06] MEDS: Calcium Carbonate 500 MG Tab.Chew PO SCH ×3 (07:41→19:03)
[2019-11-06] MEDS: Cyanocobalamin (Vitamin B12) 1,000 MCG Tab PO SCH (07:41)
[2019-11-06] MEDS: Cholecalciferol (Vitamin D3) 25 MCG Tab PO SCH (07:42)
[2019-11-06] MEDS: Aluminum Hydroxide/Magnesium Hydroxide/Simethicone Susp 30 ML Cup PO PRN (18:59)
[2019-11-06] MEDS: buPROPion 100 MG Tab PO SCH (19:02)
[2019-11-06] MEDS: Levothyroxine Sodium 137 MCG TABLET PO SCH (19:02)
[2019-11-06] MEDS: Simvastatin 10 MG Tab PO SCH (19:02)
[2019-11-06] MEDS: IBUPROFEN 600 MG PO PRN (19:04)
[2019-11-06] MEDS: Menthol/Methyl Salicylate 85 GM Tube TOP PRN (19:23)
[2019-11-07] MEDS: Albuterol/Ipratropium 3.0-0.5 MG/3 ML Neb Soln NEB SCH ×2 (07:40→19:38)
[2019-11-07] MEDS: Fludrocortisone 0.1 MG Tab PO SCH ×2 (07:41→19:38)
[2019-11-07] MEDS: Potassium Chloride 20 MEQ Tab.ER PO SCH ×3 (07:41→17:47)
[2019-11-07] MEDS: Citalopram 20 MG Tab PO SCH (07:41)
[2019-11-07] MEDS: Furosemide 20 MG Tab PO SCH (07:41)
[2019-11-07] MEDS: Calcium Carbonate 500 MG Tab.Chew PO SCH ×3 (07:42→19:40)
[2019-11-07] MEDS: Cholecalciferol (Vitamin D3) 25 MCG Tab PO SCH (07:42)
[2019-11-07] MEDS: Niacin 500 MG Tab PO SCH ×2 (07:42→17:47)
[2019-11-07] MEDS: Cyanocobalamin (Vitamin B12) 1,000 MCG Tab PO SCH (07:42)
[2019-11-07] MEDS: IBUPROFEN 600 MG PO PRN ×2 (08:48→19:41)
[2019-11-07] MEDS: Aluminum Hydroxide/Magnesium Hydroxide/Simethicone Susp 30 ML Cup PO PRN (09:13)
[2019-11-07] MEDS: Levothyroxine Sodium 137 MCG TABLET PO SCH (19:39)
[2019-11-07] MEDS: Simvastatin 10 MG Tab PO SCH (19:40)
[2019-11-07] MEDS: buPROPion 100 MG Tab PO SCH (19:40)
[2019-11-07] MEDS: Menthol/Methyl Salicylate 85 GM Tube TOP PRN (19:42)
[2019-11-08] MEDS: Acetaminophen 325 MG Tab PO PRN ×2 (04:14→11:08)
[2019-11-08] MEDS: Menthol/Methyl Salicylate 85 GM Tube TOP PRN (04:16)
[2019-11-08] MEDS: Albuterol/Ipratropium 3.0-0.5 MG/3 ML Neb Soln NEB SCH ×2 (07:32→19:23)
[2019-11-08] MEDS: Potassium Chloride 20 MEQ Tab.ER PO SCH ×3 (07:33→17:02)
[2019-11-08] MEDS: Citalopram 20 MG Tab PO SCH (07:33)
[2019-11-08] MEDS: Furosemide 20 MG Tab PO SCH (07:33)
[2019-11-08] MEDS: Fludrocortisone 0.1 MG Tab PO SCH ×2 (07:33→19:23)
[2019-11-08] MEDS: Calcium Carbonate 500 MG Tab.Chew PO SCH ×3 (07:34→19:22)
[2019-11-08] MEDS: Cholecalciferol (Vitamin D3) 25 MCG Tab PO SCH (07:34)
[2019-11-08] MEDS: Cyanocobalamin (Vitamin B12) 1,000 MCG Tab PO SCH (07:34)
[2019-11-08] MEDS: Niacin 500 MG Tab PO SCH ×2 (07:34→17:02)
[2019-11-08] MEDS: IBUPROFEN 600 MG PO PRN ×2 (07:54→19:22)
[2019-11-08] MEDS: Simvastatin 10 MG Tab PO SCH (19:22)
[2019-11-08] MEDS: buPROPion 100 MG Tab PO SCH (19:22)
[2019-11-08] MEDS: Levothyroxine Sodium 137 MCG TABLET PO SCH (19:23)
[2019-11-09] MEDS: Citalopram 20 MG Tab PO SCH (07:04)
[2019-11-09] MEDS: Fludrocortisone 0.1 MG Tab PO SCH ×2 (07:04→19:09)
[2019-11-09] MEDS: Albuterol/Ipratropium 3.0-0.5 MG/3 ML Neb Soln NEB SCH ×2 (07:04→19:09)
[2019-11-09] MEDS: Furosemide 20 MG Tab PO SCH (07:05)
[2019-11-09] MEDS: Potassium Chloride 20 MEQ Tab.ER PO SCH ×3 (07:05→17:09)
[2019-11-09] MEDS: IBUPROFEN 600 MG PO PRN ×2 (07:05→19:07)
[2019-11-09] MEDS: Niacin 500 MG Tab PO SCH ×2 (07:06→17:10)
[2019-11-09] MEDS: Calcium Carbonate 500 MG Tab.Chew PO SCH ×3 (07:06→19:09)
[2019-11-09] MEDS: Cyanocobalamin (Vitamin B12) 1,000 MCG Tab PO SCH (07:07)
[2019-11-09] MEDS: Cholecalciferol (Vitamin D3) 25 MCG Tab PO SCH (07:07)
[2019-11-09] MEDS: Acetaminophen 325 MG Tab PO PRN (11:15)
[2019-11-09] MEDS: Simvastatin 10 MG Tab PO SCH (19:09)
[2019-11-09] MEDS: buPROPion 100 MG Tab PO SCH (19:09)
[2019-11-09] MEDS: Levothyroxine Sodium 137 MCG TABLET PO SCH (19:09)
[2019-11-10] MEDS: IBUPROFEN 600 MG PO PRN ×2 (03:56→19:35)
[2019-11-10] MEDS: Albuterol/Ipratropium 3.0-0.5 MG/3 ML Neb Soln NEB SCH ×2 (07:04→19:32)
[2019-11-10] MEDS: Citalopram 20 MG Tab PO SCH (07:05)
[2019-11-10] MEDS: Fludrocortisone 0.1 MG Tab PO SCH ×2 (07:05→19:33)
[2019-11-10] MEDS: Furosemide 20 MG Tab PO SCH (07:06)
[2019-11-10] MEDS: Potassium Chloride 20 MEQ Tab.ER PO SCH ×3 (07:06→17:04)
[2019-11-10] MEDS: Niacin 500 MG Tab PO SCH ×2 (07:06→17:04)
[2019-11-10] MEDS: Calcium Carbonate 500 MG Tab.Chew PO SCH (07:06)
[2019-11-10] MEDS: Acetaminophen 325 MG Tab PO PRN ×3 (07:07→23:38)
[2019-11-10] MEDS: Cholecalciferol (Vitamin D3) 25 MCG Tab PO SCH (07:07)
[2019-11-10] MEDS: Cyanocobalamin (Vitamin B12) 1,000 MCG Tab PO SCH (07:07)
[2019-11-10] MEDS: Levothyroxine Sodium 137 MCG TABLET PO SCH (19:33)
[2019-11-10] MEDS: buPROPion 100 MG Tab PO SCH (19:33)
[2019-11-10] MEDS: Simvastatin 10 MG Tab PO SCH (19:33)
[2019-11-10] MEDS: Menthol/Methyl Salicylate 85 GM Tube TOP PRN (19:34)
[2019-11-11] MEDS: Aluminum Hydroxide/Magnesium Hydroxide/Simethicone Susp 30 ML Cup PO PRN (05:07)
[2019-11-11] MEDS: Citalopram 20 MG Tab PO SCH (07:44)
[2019-11-11] MEDS: Potassium Chloride 20 MEQ Tab.ER PO SCH ×3 (07:44→17:36)
[2019-11-11] MEDS: Furosemide 20 MG Tab PO SCH (07:45)
[2019-11-11] MEDS: Fludrocortisone 0.1 MG Tab PO SCH ×2 (07:45→19:24)
[2019-11-11] MEDS: Calcium Carbonate 750 MG Tab.Chew PO SCH (07:46)
[2019-11-11] MEDS: Albuterol/Ipratropium 3.0-0.5 MG/3 ML Neb Soln NEB SCH ×2 (07:46→19:24)
[2019-11-11] MEDS: Niacin 500 MG Tab PO SCH ×2 (07:47→17:37)
[2019-11-11] MEDS: Cyanocobalamin (Vitamin B12) 1,000 MCG Tab PO SCH (07:47)
[2019-11-11] MEDS: Cholecalciferol (Vitamin D3) 25 MCG Tab PO SCH (07:47)
[2019-11-11] MEDS: IBUPROFEN 600 MG PO PRN ×2 (07:49→17:37)
[2019-11-11] MEDS: buPROPion 100 MG Tab PO SCH (19:24)
[2019-11-11] MEDS: Levothyroxine Sodium 137 MCG TABLET PO SCH (19:24)
[2019-11-11] MEDS: Menthol/Methyl Salicylate 85 GM Tube TOP PRN (19:25)
[2019-11-11] MEDS: Simvastatin 10 MG Tab PO SCH (19:25)
[2019-11-12] MEDS: IBUPROFEN 600 MG PO PRN ×3 (02:20→16:34)
[2019-11-12] MEDS: Citalopram 20 MG Tab PO SCH (08:02)
[2019-11-12] MEDS: Potassium Chloride 20 MEQ Tab.ER PO SCH ×3 (08:02→17:57)
[2019-11-12] MEDS: Furosemide 20 MG Tab PO SCH (08:03)
[2019-11-12] MEDS: Albuterol/Ipratropium 3.0-0.5 MG/3 ML Neb Soln NEB SCH ×2 (08:03→19:30)
[2019-11-12] MEDS: Fludrocortisone 0.1 MG Tab PO SCH ×2 (08:03→19:30)
[2019-11-12] MEDS: Niacin 500 MG Tab PO SCH ×2 (08:04→17:57)
[2019-11-12] MEDS: Calcium Carbonate 750 MG Tab.Chew PO SCH (08:04)
[2019-11-12] MEDS: Cyanocobalamin (Vitamin B12) 1,000 MCG Tab PO SCH (08:05)
[2019-11-12] MEDS: Cholecalciferol (Vitamin D3) 25 MCG Tab PO SCH (08:05)
[2019-11-12] MEDS: Aluminum Hydroxide/Magnesium Hydroxide/Simethicone Susp 30 ML Cup PO PRN ×2 (08:10→16:38)
[2019-11-12] MEDS: buPROPion 100 MG Tab PO SCH (19:31)
[2019-11-12] MEDS: Levothyroxine Sodium 137 MCG TABLET PO SCH (19:31)
[2019-11-12] MEDS: Simvastatin 10 MG Tab PO SCH (19:32)
[2019-11-13] MEDS: IBUPROFEN 600 MG PO PRN ×2 (00:58→17:16)
[2019-11-13] MEDS: Potassium Chloride 20 MEQ Tab.ER PO SCH ×3 (07:50→17:15)
[2019-11-13] MEDS: Citalopram 20 MG Tab PO SCH (07:50)
[2019-11-13] MEDS: Fludrocortisone 0.1 MG Tab PO SCH ×2 (07:51→19:20)
[2019-11-13] MEDS: Furosemide 20 MG Tab PO SCH (07:51)
[2019-11-13] MEDS: Cholecalciferol (Vitamin D3) 25 MCG Tab PO SCH (07:51)
[2019-11-13] MEDS: Niacin 500 MG Tab PO SCH ×2 (07:51→17:16)
[2019-11-13] MEDS: Albuterol/Ipratropium 3.0-0.5 MG/3 ML Neb Soln NEB SCH ×2 (07:51→19:19)
[2019-11-13] MEDS: Cyanocobalamin (Vitamin B12) 1,000 MCG Tab PO SCH (07:52)
[2019-11-13] MEDS: Calcium Carbonate 750 MG Tab.Chew PO SCH (07:52)
[2019-11-13] MEDS: Levothyroxine Sodium 137 MCG TABLET PO SCH (19:20)
[2019-11-13] MEDS: Simvastatin 10 MG Tab PO SCH (19:21)
[2019-11-13] MEDS: buPROPion 100 MG Tab PO SCH (19:21)
[2019-11-14] MEDS: Acetaminophen 325 MG Tab PO PRN ×2 (05:46→17:10)
[2019-11-14] MEDS: Potassium Chloride 20 MEQ Tab.ER PO SCH ×3 (07:51→17:10)
[2019-11-14] MEDS: Citalopram 20 MG Tab PO SCH (07:51)
[2019-11-14] MEDS: Fludrocortisone 0.1 MG Tab PO SCH ×2 (07:51→19:15)
[2019-11-14] MEDS: Furosemide 20 MG Tab PO SCH (07:51)
[2019-11-14] MEDS: Albuterol/Ipratropium 3.0-0.5 MG/3 ML Neb Soln NEB SCH ×2 (07:52→19:15)
[2019-11-14] MEDS: Calcium Carbonate 750 MG Tab.Chew PO SCH (07:52)
[2019-11-14] MEDS: Niacin 500 MG Tab PO SCH ×2 (07:52→17:10)
[2019-11-14] MEDS: Cyanocobalamin (Vitamin B12) 1,000 MCG Tab PO SCH (07:52)
[2019-11-14] MEDS: Cholecalciferol (Vitamin D3) 25 MCG Tab PO SCH (07:52)
[2019-11-14] MEDS: IBUPROFEN 600 MG PO PRN (07:53)
[2019-11-14] MEDS: Levothyroxine Sodium 137 MCG TABLET PO SCH (19:16)
[2019-11-14] MEDS: Simvastatin 10 MG Tab PO SCH (19:16)
[2019-11-14] MEDS: buPROPion 100 MG Tab PO SCH (19:16)
[2019-11-15] MEDS: Albuterol/Ipratropium 3.0-0.5 MG/3 ML Neb Soln NEB SCH ×2 (07:33→19:37)
[2019-11-15] MEDS: guaiFENesin/Dextromethorphan 100-10 MG/5 ML Soln 10 ML Cup PO PRN ×2 (07:35→19:39)
[2019-11-15] MEDS: Potassium Chloride 20 MEQ Tab.ER PO SCH ×3 (07:36→17:06)
[2019-11-15] MEDS: Furosemide 20 MG Tab PO SCH (07:36)
[2019-11-15] MEDS: Citalopram 20 MG Tab PO SCH (07:36)
[2019-11-15] MEDS: Fludrocortisone 0.1 MG Tab PO SCH ×2 (07:36→19:37)
[2019-11-15] MEDS: IBUPROFEN 600 MG PO PRN ×2 (07:37→19:38)
[2019-11-15] MEDS: Niacin 500 MG Tab PO SCH ×2 (07:37→17:07)
[2019-11-15] MEDS: Cholecalciferol (Vitamin D3) 25 MCG Tab PO SCH (07:38)
[2019-11-15] MEDS: Calcium Carbonate 750 MG Tab.Chew PO SCH (07:38)
[2019-11-15] MEDS: Cyanocobalamin (Vitamin B12) 1,000 MCG Tab PO SCH (07:38)
[2019-11-15] MEDS: Acetaminophen 325 MG Tab PO PRN (11:35)
[2019-11-15] MEDS: Levothyroxine Sodium 137 MCG TABLET PO SCH (19:37)
[2019-11-15] MEDS: buPROPion 100 MG Tab PO SCH (19:37)
[2019-11-15] MEDS: Simvastatin 10 MG Tab PO SCH (19:38)
[2019-11-15] MEDS: Menthol/Methyl Salicylate 85 GM Tube TOP PRN (19:40)
[2019-11-15] MEDS: Aluminum Hydroxide/Magnesium Hydroxide/Simethicone Susp 30 ML Cup PO PRN (23:44)
[2019-11-16] MEDS: Fludrocortisone 0.1 MG Tab PO SCH ×2 (08:02→19:37)
[2019-11-16] MEDS: Furosemide 20 MG Tab PO SCH (08:02)
[2019-11-16] MEDS: Potassium Chloride 20 MEQ Tab.ER PO SCH ×3 (08:02→17:22)
[2019-11-16] MEDS: Citalopram 20 MG Tab PO SCH (08:02)
[2019-11-16] MEDS: Niacin 500 MG Tab PO SCH ×2 (08:03→17:23)
[2019-11-16] MEDS: Calcium Carbonate 750 MG Tab.Chew PO SCH (08:03)
[2019-11-16] MEDS: Albuterol/Ipratropium 3.0-0.5 MG/3 ML Neb Soln NEB SCH ×2 (08:03→19:37)
[2019-11-16] MEDS: Cholecalciferol (Vitamin D3) 25 MCG Tab PO SCH (08:04)
[2019-11-16] MEDS: guaiFENesin/Dextromethorphan 100-10 MG/5 ML Soln 10 ML Cup PO PRN ×2 (08:04→19:38)
[2019-11-16] MEDS: Cyanocobalamin (Vitamin B12) 1,000 MCG Tab PO SCH (08:04)
[2019-11-16] MEDS: Acetaminophen 325 MG Tab PO PRN (17:23)
[2019-11-16] MEDS: Levothyroxine Sodium 137 MCG TABLET PO SCH (19:37)
[2019-11-16] MEDS: buPROPion 100 MG Tab PO SCH (19:37)
[2019-11-16] MEDS: Simvastatin 10 MG Tab PO SCH (19:38)
[2019-11-17] MEDS: Niacin 500 MG Tab PO SCH ×2 (08:09→17:28)
[2019-11-17] MEDS: Furosemide 20 MG Tab PO SCH (08:09)
[2019-11-17] MEDS: Potassium Chloride 20 MEQ Tab.ER PO SCH ×3 (08:09→17:29)
[2019-11-17] MEDS: Fludrocortisone 0.1 MG Tab PO SCH ×2 (08:09→19:11)
[2019-11-17] MEDS: Citalopram 20 MG Tab PO SCH (08:09)
[2019-11-17] MEDS: Albuterol/Ipratropium 3.0-0.5 MG/3 ML Neb Soln NEB SCH ×2 (08:09→19:11)
[2019-11-17] MEDS: Acetaminophen 325 MG Tab PO PRN (08:10)
[2019-11-17] MEDS: Cyanocobalamin (Vitamin B12) 1,000 MCG Tab PO SCH (08:10)
[2019-11-17] MEDS: Cholecalciferol (Vitamin D3) 25 MCG Tab PO SCH (08:10)
[2019-11-17] MEDS: Calcium Carbonate 750 MG Tab.Chew PO SCH (08:10)
[2019-11-17] MEDS: IBUPROFEN 600 MG PO PRN (17:29)
[2019-11-17] MEDS: buPROPion 100 MG Tab PO SCH (19:11)
[2019-11-17] MEDS: Levothyroxine Sodium 137 MCG TABLET PO SCH (19:11)
[2019-11-17] MEDS: Simvastatin 10 MG Tab PO SCH (19:11)
[2019-11-17] MEDS: guaiFENesin/Dextromethorphan 100-10 MG/5 ML Soln 10 ML Cup PO PRN (19:12)
[2019-11-18] MEDS: Citalopram 20 MG Tab PO SCH (07:10)
[2019-11-18] MEDS: Albuterol/Ipratropium 3.0-0.5 MG/3 ML Neb Soln NEB SCH ×2 (07:10→19:30)
[2019-11-18] MEDS: Potassium Chloride 20 MEQ Tab.ER PO SCH ×3 (07:10→17:03)
[2019-11-18] MEDS: Fludrocortisone 0.1 MG Tab PO SCH ×2 (07:10→19:31)
[2019-11-18] MEDS: Niacin 500 MG Tab PO SCH ×2 (07:11→17:04)
[2019-11-18] MEDS: Calcium Carbonate 750 MG Tab.Chew PO SCH (07:11)
[2019-11-18] MEDS: Cyanocobalamin (Vitamin B12) 1,000 MCG Tab PO SCH (07:11)
[2019-11-18] MEDS: Furosemide 20 MG Tab PO SCH (07:11)
[2019-11-18] MEDS: Cholecalciferol (Vitamin D3) 25 MCG Tab PO SCH (07:12)
[2019-11-18] MEDS: IBUPROFEN 600 MG PO PRN ×2 (07:49→19:41)
[2019-11-18] MEDS: guaiFENesin/Dextromethorphan 100-10 MG/5 ML Soln 10 ML Cup PO PRN ×2 (07:49→19:32)
[2019-11-18] MEDS: Acetaminophen 325 MG Tab PO PRN (11:07)
[2019-11-18] MEDS: buPROPion 100 MG Tab PO SCH (19:30)
[2019-11-18] MEDS: Simvastatin 10 MG Tab PO SCH (19:31)
[2019-11-18] MEDS: Levothyroxine Sodium 137 MCG TABLET PO SCH (19:31)
[2019-11-18] MEDS: Menthol/Methyl Salicylate 85 GM Tube TOP PRN (19:32)
[2019-11-19] MEDS: Albuterol/Ipratropium 3.0-0.5 MG/3 ML Neb Soln NEB SCH ×2 (07:57→19:28)
[2019-11-19] MEDS: Citalopram 20 MG Tab PO SCH (07:57)
[2019-11-19] MEDS: Fludrocortisone 0.1 MG Tab PO SCH ×2 (07:57→19:29)
[2019-11-19] MEDS: Furosemide 20 MG Tab PO SCH (07:58)
[2019-11-19] MEDS: Calcium Carbonate 750 MG Tab.Chew PO SCH (07:59)
[2019-11-19] MEDS: Niacin 500 MG Tab PO SCH ×2 (07:59→17:37)
[2019-11-19] MEDS: Cholecalciferol (Vitamin D3) 25 MCG Tab PO SCH (08:00)
[2019-11-19] MEDS: Cyanocobalamin (Vitamin B12) 1,000 MCG Tab PO SCH (11:18)
[2019-11-19] MEDS: Potassium Chloride 20 MEQ Tab.ER PO SCH ×3 (11:18→17:36)
[2019-11-19] MEDS: IBUPROFEN 600 MG PO PRN (17:38)
[2019-11-19] MEDS: buPROPion 100 MG Tab PO SCH (19:29)
[2019-11-19] MEDS: Levothyroxine Sodium 137 MCG TABLET PO SCH (19:29)
[2019-11-19] MEDS: Simvastatin 10 MG Tab PO SCH (19:29)
[2019-11-19] MEDS: Menthol/Methyl Salicylate 85 GM Tube TOP PRN (19:30)
[2019-11-19] MEDS: guaiFENesin/Dextromethorphan 100-10 MG/5 ML Soln 10 ML Cup PO PRN (19:31)
[2019-11-20] MEDS: Citalopram 20 MG Tab PO SCH (07:59)
[2019-11-20] MEDS: Fludrocortisone 0.1 MG Tab PO SCH ×2 (07:59→19:16)
[2019-11-20] MEDS: Albuterol/Ipratropium 3.0-0.5 MG/3 ML Neb Soln NEB SCH ×2 (07:59→19:15)
[2019-11-20] MEDS: Niacin 500 MG Tab PO SCH ×2 (08:00→17:07)
[2019-11-20] MEDS: Calcium Carbonate 750 MG Tab.Chew PO SCH (08:00)
[2019-11-20] MEDS: Furosemide 20 MG Tab PO SCH (08:00)
[2019-11-20] MEDS: Potassium Chloride 20 MEQ Tab.ER PO SCH ×3 (08:00→17:07)
[2019-11-20] MEDS: Cyanocobalamin (Vitamin B12) 1,000 MCG Tab PO SCH (08:01)
[2019-11-20] MEDS: Cholecalciferol (Vitamin D3) 25 MCG Tab PO SCH (08:01)
[2019-11-20] MEDS: IBUPROFEN 600 MG PO PRN (08:44)
[2019-11-20] MEDS: Acetaminophen 325 MG Tab PO PRN (11:10)
[2019-11-20] MEDS: buPROPion 100 MG Tab PO SCH (19:16)
[2019-11-20] MEDS: guaiFENesin/Dextromethorphan 100-10 MG/5 ML Soln 10 ML Cup PO PRN (19:16)
[2019-11-20] MEDS: Simvastatin 10 MG Tab PO SCH (19:16)
[2019-11-20] MEDS: Levothyroxine Sodium 137 MCG TABLET PO SCH (19:16)
[2019-11-21] MEDS: IBUPROFEN 600 MG PO PRN ×3 (02:59→23:48)
[2019-11-21] MEDS: Albuterol/Ipratropium 3.0-0.5 MG/3 ML Neb Soln NEB SCH ×2 (07:11→19:27)
[2019-11-21] MEDS: Citalopram 20 MG Tab PO SCH (07:12)
[2019-11-21] MEDS: Calcium Carbonate 750 MG Tab.Chew PO SCH (07:12)
[2019-11-21] MEDS: Fludrocortisone 0.1 MG Tab PO SCH ×2 (07:12→19:27)
[2019-11-21] MEDS: Niacin 500 MG Tab PO SCH ×2 (07:13→17:06)
[2019-11-21] MEDS: Potassium Chloride 20 MEQ Tab.ER PO SCH ×3 (07:13→17:06)
[2019-11-21] MEDS: Furosemide 20 MG Tab PO SCH (07:13)
[2019-11-21] MEDS: Cholecalciferol (Vitamin D3) 25 MCG Tab PO SCH (07:18)
[2019-11-21] MEDS: Cyanocobalamin (Vitamin B12) 1,000 MCG Tab PO SCH (07:18)
[2019-11-21] MEDS: Acetaminophen 325 MG Tab PO PRN (08:06)
[2019-11-21] MEDS: Levothyroxine Sodium 137 MCG TABLET PO SCH (19:27)
[2019-11-21] MEDS: Simvastatin 10 MG Tab PO SCH (19:27)
[2019-11-21] MEDS: guaiFENesin/Dextromethorphan 100-10 MG/5 ML Soln 10 ML Cup PO PRN (19:27)
[2019-11-21] MEDS: buPROPion 100 MG Tab PO SCH (19:27)
[2019-11-22] MEDS: Calcium Carbonate 750 MG Tab.Chew PO SCH (07:46)
[2019-11-22] MEDS: Citalopram 20 MG Tab PO SCH (07:47)
[2019-11-22] MEDS: Albuterol/Ipratropium 3.0-0.5 MG/3 ML Neb Soln NEB SCH ×2 (07:47→19:28)
[2019-11-22] MEDS: Fludrocortisone 0.1 MG Tab PO SCH ×2 (07:47→19:27)
[2019-11-22] MEDS: Potassium Chloride 20 MEQ Tab.ER PO SCH ×3 (07:47→17:01)
[2019-11-22] MEDS: Furosemide 20 MG Tab PO SCH (07:48)
[2019-11-22] MEDS: Cyanocobalamin (Vitamin B12) 1,000 MCG Tab PO SCH (07:48)
[2019-11-22] MEDS: Cholecalciferol (Vitamin D3) 25 MCG Tab PO SCH (07:48)
[2019-11-22] MEDS: Niacin 500 MG Tab PO SCH ×2 (07:48→17:01)
[2019-11-22] MEDS: IBUPROFEN 600 MG PO PRN ×2 (07:49→19:27)
[2019-11-22] MEDS: guaiFENesin/Dextromethorphan 100-10 MG/5 ML Soln 10 ML Cup PO PRN ×2 (08:33→19:26)
[2019-11-22] MEDS: Acetaminophen 325 MG Tab PO PRN (11:21)
[2019-11-22] MEDS: Simvastatin 10 MG Tab PO SCH (19:27)
[2019-11-22] MEDS: Levothyroxine Sodium 137 MCG TABLET PO SCH (19:27)
[2019-11-22] MEDS: buPROPion 100 MG Tab PO SCH (19:27)
[2019-11-23] MEDS: Fludrocortisone 0.1 MG Tab PO SCH ×2 (07:02→19:51)
[2019-11-23] MEDS: Albuterol/Ipratropium 3.0-0.5 MG/3 ML Neb Soln NEB SCH ×2 (07:02→19:51)
[2019-11-23] MEDS: Potassium Chloride 20 MEQ Tab.ER PO SCH ×3 (07:02→17:19)
[2019-11-23] MEDS: Citalopram 20 MG Tab PO SCH (07:02)
[2019-11-23] MEDS: Calcium Carbonate 750 MG Tab.Chew PO SCH (07:03)
[2019-11-23] MEDS: Cholecalciferol (Vitamin D3) 25 MCG Tab PO SCH (07:03)
[2019-11-23] MEDS: Niacin 500 MG Tab PO SCH ×2 (07:03→17:18)
[2019-11-23] MEDS: Furosemide 20 MG Tab PO SCH (07:03)
[2019-11-23] MEDS: Cyanocobalamin (Vitamin B12) 1,000 MCG Tab PO SCH (07:04)
[2019-11-23] MEDS: Aluminum Hydroxide/Magnesium Hydroxide/Simethicone Susp 30 ML Cup PO PRN (09:08)
[2019-11-23] MEDS: Simvastatin 10 MG Tab PO SCH (19:52)
[2019-11-23] MEDS: Levothyroxine Sodium 137 MCG TABLET PO SCH (19:52)
[2019-11-23] MEDS: buPROPion 100 MG Tab PO SCH (19:52)
[2019-11-23] MEDS: IBUPROFEN 600 MG PO PRN (19:52)
[2019-11-23] MEDS: Menthol/Methyl Salicylate 85 GM Tube TOP PRN (19:53)
[2019-11-24] MEDS: Furosemide 20 MG Tab PO SCH (08:24)
[2019-11-24] MEDS: Potassium Chloride 20 MEQ Tab.ER PO SCH ×3 (08:24→17:15)
[2019-11-24] MEDS: Niacin 500 MG Tab PO SCH ×2 (08:25→17:15)
[2019-11-24] MEDS: Citalopram 20 MG Tab PO SCH (08:25)
[2019-11-24] MEDS: Fludrocortisone 0.1 MG Tab PO SCH ×2 (08:25→19:34)
[2019-11-24] MEDS: Cyanocobalamin (Vitamin B12) 1,000 MCG Tab PO SCH (08:26)
[2019-11-24] MEDS: Calcium Carbonate 750 MG Tab.Chew PO SCH (08:26)
[2019-11-24] MEDS: Cholecalciferol (Vitamin D3) 25 MCG Tab PO SCH (08:26)
[2019-11-24] MEDS: Albuterol/Ipratropium 3.0-0.5 MG/3 ML Neb Soln NEB SCH ×2 (08:27→19:34)
[2019-11-24] MEDS: Aluminum Hydroxide/Magnesium Hydroxide/Simethicone Susp 30 ML Cup PO PRN (09:35)
[2019-11-24] MEDS: Menthol/Methyl Salicylate 85 GM Tube TOP PRN (19:34)
[2019-11-24] MEDS: Simvastatin 10 MG Tab PO SCH (19:34)
[2019-11-24] MEDS: Levothyroxine Sodium 137 MCG TABLET PO SCH (19:34)
[2019-11-24] MEDS: buPROPion 100 MG Tab PO SCH (19:34)
[2019-11-24] MEDS: IBUPROFEN 600 MG PO PRN (19:35)
[2019-11-24] MEDS: Acetaminophen 325 MG Tab PO PRN (21:44)
[2019-11-25] MEDS: guaiFENesin/Dextromethorphan 100-10 MG/5 ML Soln 10 ML Cup PO PRN ×2 (05:14→19:09)
[2019-11-25] MEDS: IBUPROFEN 600 MG PO PRN ×2 (06:10→16:17)
[2019-11-25] MEDS: Albuterol/Ipratropium 3.0-0.5 MG/3 ML Neb Soln NEB SCH ×2 (07:10→19:08)
[2019-11-25] MEDS: Calcium Carbonate 750 MG Tab.Chew PO SCH (07:10)
[2019-11-25] MEDS: Fludrocortisone 0.1 MG Tab PO SCH ×2 (07:13→19:07)
[2019-11-25] MEDS: Citalopram 20 MG Tab PO SCH (07:13)
[2019-11-25] MEDS: Furosemide 20 MG Tab PO SCH (07:13)
[2019-11-25] MEDS: Potassium Chloride 20 MEQ Tab.ER PO SCH ×3 (07:13→17:04)
[2019-11-25] MEDS: Cholecalciferol (Vitamin D3) 25 MCG Tab PO SCH (07:14)
[2019-11-25] MEDS: Cyanocobalamin (Vitamin B12) 1,000 MCG Tab PO SCH (07:14)
[2019-11-25] MEDS: Niacin 500 MG Tab PO SCH ×2 (07:14→17:04)
[2019-11-25] MEDS: Acetaminophen 325 MG Tab PO PRN ×2 (11:04→19:09)
[2019-11-25] MEDS: Levothyroxine Sodium 137 MCG TABLET PO SCH (19:08)
[2019-11-25] MEDS: Simvastatin 10 MG Tab PO SCH (19:08)
[2019-11-25] MEDS: buPROPion 100 MG Tab PO SCH (19:08)
[2019-11-26] MEDS: Citalopram 20 MG Tab PO SCH (08:16)
[2019-11-26] MEDS: Potassium Chloride 20 MEQ Tab.ER PO SCH ×3 (08:17→17:52)
[2019-11-26] MEDS: Fludrocortisone 0.1 MG Tab PO SCH ×2 (08:17→19:16)
[2019-11-26] MEDS: Furosemide 20 MG Tab PO SCH (08:17)
[2019-11-26] MEDS: Calcium Carbonate 750 MG Tab.Chew PO SCH (08:18)
[2019-11-26] MEDS: Niacin 500 MG Tab PO SCH ×2 (08:18→17:53)
[2019-11-26] MEDS: Cyanocobalamin (Vitamin B12) 1,000 MCG Tab PO SCH (08:19)
[2019-11-26] MEDS: Cholecalciferol (Vitamin D3) 25 MCG Tab PO SCH (08:20)
[2019-11-26] MEDS: Albuterol/Ipratropium 3.0-0.5 MG/3 ML Neb Soln NEB SCH ×2 (08:21→19:17)
[2019-11-26] MEDS: IBUPROFEN 600 MG PO PRN (16:07)
[2019-11-26] MEDS: Levothyroxine Sodium 137 MCG TABLET PO SCH (19:16)
[2019-11-26] MEDS: Simvastatin 10 MG Tab PO SCH (19:16)
[2019-11-26] MEDS: buPROPion 100 MG Tab PO SCH (19:16)
[2019-11-26] MEDS: Acetaminophen 325 MG Tab PO PRN (19:17)
[2019-11-27] MEDS: guaiFENesin/Dextromethorphan 100-10 MG/5 ML Soln 10 ML Cup PO PRN (00:05)
[2019-11-27] MEDS: IBUPROFEN 600 MG PO PRN ×2 (01:30→17:52)
[2019-11-27] MEDS: Citalopram 20 MG Tab PO SCH (08:07)
[2019-11-27] MEDS: Albuterol/Ipratropium 3.0-0.5 MG/3 ML Neb Soln NEB SCH ×2 (08:08→19:36)
[2019-11-27] MEDS: Fludrocortisone 0.1 MG Tab PO SCH ×2 (08:08→19:36)
[2019-11-27] MEDS: Potassium Chloride 20 MEQ Tab.ER PO SCH ×3 (08:09→17:50)
[2019-11-27] MEDS: Niacin 500 MG Tab PO SCH ×2 (08:10→17:51)
[2019-11-27] MEDS: Furosemide 20 MG Tab PO SCH (08:10)
[2019-11-27] MEDS: Calcium Carbonate 750 MG Tab.Chew PO SCH (08:10)
[2019-11-27] MEDS: Cyanocobalamin (Vitamin B12) 1,000 MCG Tab PO SCH (08:11)
[2019-11-27] MEDS: Cholecalciferol (Vitamin D3) 25 MCG Tab PO SCH (08:12)
[2019-11-27] MEDS: Levothyroxine Sodium 137 MCG TABLET PO SCH (19:36)
[2019-11-27] MEDS: buPROPion 100 MG Tab PO SCH (19:36)
[2019-11-27] MEDS: Simvastatin 10 MG Tab PO SCH (19:36)
[2019-11-27] MEDS: Menthol/Methyl Salicylate 85 GM Tube TOP PRN (19:37)
[2019-11-27] MEDS: Acetaminophen 325 MG Tab PO PRN (22:53)
[2019-11-28] MEDS: IBUPROFEN 600 MG PO PRN (05:28)
[2019-11-28] MEDS: Citalopram 20 MG Tab PO SCH (08:09)
[2019-11-28] MEDS: Potassium Chloride 20 MEQ Tab.ER PO SCH ×3 (08:09→17:30)
[2019-11-28] MEDS: Fludrocortisone 0.1 MG Tab PO SCH ×2 (08:09→19:21)
[2019-11-28] MEDS: Furosemide 20 MG Tab PO SCH (08:10)
[2019-11-28] MEDS: Calcium Carbonate 750 MG Tab.Chew PO SCH (08:11)
[2019-11-28] MEDS: Niacin 500 MG Tab PO SCH ×2 (08:11→17:30)
[2019-11-28] MEDS: Cyanocobalamin (Vitamin B12) 1,000 MCG Tab PO SCH (08:12)
[2019-11-28] MEDS: Cholecalciferol (Vitamin D3) 25 MCG Tab PO SCH (08:12)
[2019-11-28] MEDS: Albuterol/Ipratropium 3.0-0.5 MG/3 ML Neb Soln NEB SCH ×2 (08:14→19:21)
[2019-11-28] MEDS: Acetaminophen 325 MG Tab PO PRN ×2 (08:15→17:32)
[2019-11-28] MEDS: guaiFENesin/Dextromethorphan 100-10 MG/5 ML Soln 10 ML Cup PO PRN ×2 (08:17→19:25)
[2019-11-28] MEDS: Magnesium Hydroxide 400 MG/5 ML Susp 30 ML Cup PO PRN (17:35)
[2019-11-28] MEDS: Levothyroxine Sodium 137 MCG TABLET PO SCH (19:21)
[2019-11-28] MEDS: buPROPion 100 MG Tab PO SCH (19:21)
[2019-11-28] MEDS: Simvastatin 10 MG Tab PO SCH (19:22)
[2019-11-28] MEDS: Menthol/Methyl Salicylate 85 GM Tube TOP PRN (19:22)
[2019-11-29] MEDS: Albuterol/Ipratropium 3.0-0.5 MG/3 ML Neb Soln NEB SCH ×2 (07:17→19:25)
[2019-11-29] MEDS: Fludrocortisone 0.1 MG Tab PO SCH ×2 (07:18→19:25)
[2019-11-29] MEDS: Citalopram 20 MG Tab PO SCH (07:18)
[2019-11-29] MEDS: Potassium Chloride 20 MEQ Tab.ER PO SCH ×3 (07:18→17:08)
[2019-11-29] MEDS: Furosemide 20 MG Tab PO SCH (07:19)
[2019-11-29] MEDS: Calcium Carbonate 750 MG Tab.Chew PO SCH (07:19)
[2019-11-29] MEDS: Niacin 500 MG Tab PO SCH ×2 (07:19→17:08)
[2019-11-29] MEDS: Cyanocobalamin (Vitamin B12) 1,000 MCG Tab PO SCH (07:20)
[2019-11-29] MEDS: Cholecalciferol (Vitamin D3) 25 MCG Tab PO SCH (07:20)
[2019-11-29] MEDS: Levothyroxine Sodium 137 MCG TABLET PO SCH (19:25)
[2019-11-29] MEDS: buPROPion 100 MG Tab PO SCH (19:26)
[2019-11-29] MEDS: Simvastatin 10 MG Tab PO SCH (19:26)
[2019-11-29] MEDS: IBUPROFEN 600 MG PO PRN (19:27)
[2019-11-30] MEDS: Potassium Chloride 20 MEQ Tab.ER PO SCH ×3 (08:06→17:34)
[2019-11-30] MEDS: Citalopram 20 MG Tab PO SCH (08:07)
[2019-11-30] MEDS: Fludrocortisone 0.1 MG Tab PO SCH ×2 (08:07→19:05)
[2019-11-30] MEDS: Furosemide 20 MG Tab PO SCH (08:07)
[2019-11-30] MEDS: Niacin 500 MG Tab PO SCH ×2 (08:08→17:36)
[2019-11-30] MEDS: Calcium Carbonate 750 MG Tab.Chew PO SCH (08:08)
[2019-11-30] MEDS: Cholecalciferol (Vitamin D3) 25 MCG Tab PO SCH (08:09)
[2019-11-30] MEDS: Cyanocobalamin (Vitamin B12) 1,000 MCG Tab PO SCH (08:09)
[2019-11-30] MEDS: guaiFENesin/Dextromethorphan 100-10 MG/5 ML Soln 10 ML Cup PO PRN (08:10)
[2019-11-30] MEDS: Albuterol/Ipratropium 3.0-0.5 MG/3 ML Neb Soln NEB SCH ×2 (08:25→19:04)
[2019-11-30] MEDS: Acetaminophen 325 MG Tab PO PRN ×2 (09:00→16:39)
[2019-11-30] MEDS: Aluminum Hydroxide/Magnesium Hydroxide/Simethicone Susp 30 ML Cup PO PRN (09:00)
[2019-11-30] MEDS: IBUPROFEN 600 MG PO PRN ×2 (11:18→23:29)
[2019-11-30] MEDS: Levothyroxine Sodium 137 MCG TABLET PO SCH (19:05)
[2019-11-30] MEDS: Simvastatin 10 MG Tab PO SCH (19:05)
[2019-11-30] MEDS: buPROPion 100 MG Tab PO SCH (19:05)
[2019-12-01] MEDS: Albuterol/Ipratropium 3.0-0.5 MG/3 ML Neb Soln NEB SCH ×2 (07:20→19:10)
[2019-12-01] MEDS: Fludrocortisone 0.1 MG Tab PO SCH ×2 (07:21→19:11)
[2019-12-01] MEDS: Potassium Chloride 20 MEQ Tab.ER PO SCH ×3 (07:21→17:13)
[2019-12-01] MEDS: Furosemide 20 MG Tab PO SCH (07:21)
[2019-12-01] MEDS: Citalopram 20 MG Tab PO SCH (07:21)
[2019-12-01] MEDS: Cyanocobalamin (Vitamin B12) 1,000 MCG Tab PO SCH (07:22)
[2019-12-01] MEDS: Calcium Carbonate 750 MG Tab.Chew PO SCH (07:22)
[2019-12-01] MEDS: Cholecalciferol (Vitamin D3) 25 MCG Tab PO SCH (07:22)
[2019-12-01] MEDS: Niacin 500 MG Tab PO SCH ×2 (07:22→17:14)
[2019-12-01] MEDS: IBUPROFEN 600 MG PO PRN ×2 (07:23→17:16)
[2019-12-01] MEDS: guaiFENesin/Dextromethorphan 100-10 MG/5 ML Soln 10 ML Cup PO PRN (18:06)
[2019-12-01] MEDS: Levothyroxine Sodium 137 MCG TABLET PO SCH (19:11)
[2019-12-01] MEDS: Simvastatin 10 MG Tab PO SCH (19:11)
[2019-12-01] MEDS: buPROPion 100 MG Tab PO SCH (19:11)
[2019-12-01] MEDS: Acetaminophen 325 MG Tab PO PRN (19:12)
[2019-12-02] MEDS: Albuterol/Ipratropium 3.0-0.5 MG/3 ML Neb Soln NEB SCH ×2 (07:08→19:44)
[2019-12-02] MEDS: Fludrocortisone 0.1 MG Tab PO SCH ×2 (08:05→19:45)
[2019-12-02] MEDS: Citalopram 20 MG Tab PO SCH (08:05)
[2019-12-02] MEDS: Furosemide 20 MG Tab PO SCH (08:06)
[2019-12-02] MEDS: Potassium Chloride 20 MEQ Tab.ER PO SCH ×3 (08:06→17:47)
[2019-12-02] MEDS: Calcium Carbonate 750 MG Tab.Chew PO SCH (08:07)
[2019-12-02] MEDS: Niacin 500 MG Tab PO SCH ×2 (08:07→17:48)
[2019-12-02] MEDS: Cyanocobalamin (Vitamin B12) 1,000 MCG Tab PO SCH (08:10)
[2019-12-02] MEDS: Cholecalciferol (Vitamin D3) 25 MCG Tab PO SCH (08:13)
[2019-12-02] MEDS: Levothyroxine Sodium 137 MCG TABLET PO SCH (19:46)
[2019-12-02] MEDS: Simvastatin 10 MG Tab PO SCH (19:46)
[2019-12-02] MEDS: buPROPion 100 MG Tab PO SCH (19:46)
[2019-12-02] MEDS: guaiFENesin/Dextromethorphan 100-10 MG/5 ML Soln 10 ML Cup PO PRN (19:47)
[2019-12-02] MEDS: IBUPROFEN 600 MG PO PRN (19:47)
[2019-12-03] MEDS: Albuterol/Ipratropium 3.0-0.5 MG/3 ML Neb Soln NEB SCH ×2 (07:16→19:44)
[2019-12-03] MEDS: Citalopram 20 MG Tab PO SCH (08:09)
[2019-12-03] MEDS: Potassium Chloride 20 MEQ Tab.ER PO SCH ×3 (08:10→17:48)
[2019-12-03] MEDS: Fludrocortisone 0.1 MG Tab PO SCH ×2 (08:10→19:49)
[2019-12-03] MEDS: Furosemide 20 MG Tab PO SCH (08:11)
[2019-12-03] MEDS: Niacin 500 MG Tab PO SCH ×2 (08:11→17:50)
[2019-12-03] MEDS: Calcium Carbonate 750 MG Tab.Chew PO SCH (08:12)
[2019-12-03] MEDS: Cyanocobalamin (Vitamin B12) 1,000 MCG Tab PO SCH (08:12)
[2019-12-03] MEDS: Cholecalciferol (Vitamin D3) 25 MCG Tab PO SCH (08:13)
[2019-12-03] MEDS: Menthol/Methyl Salicylate 85 GM Tube TOP PRN (19:49)
[2019-12-03] MEDS: Simvastatin 10 MG Tab PO SCH (19:49)
[2019-12-03] MEDS: Levothyroxine Sodium 137 MCG TABLET PO SCH (19:49)
[2019-12-03] MEDS: buPROPion 100 MG Tab PO SCH (19:49)
[2019-12-03] MEDS: guaiFENesin/Dextromethorphan 100-10 MG/5 ML Soln 10 ML Cup PO PRN (19:50)
[2019-12-03] MEDS: Aluminum Hydroxide/Magnesium Hydroxide/Simethicone Susp 30 ML Cup PO PRN (19:50)
[2019-12-03] MEDS: IBUPROFEN 600 MG PO PRN (19:51)
[2019-12-04] MEDS: Albuterol/Ipratropium 3.0-0.5 MG/3 ML Neb Soln NEB SCH ×2 (07:18→19:00)
[2019-12-04] MEDS: Citalopram 20 MG Tab PO SCH (08:16)
[2019-12-04] MEDS: Potassium Chloride 20 MEQ Tab.ER PO SCH ×3 (08:16→17:49)
[2019-12-04] MEDS: Fludrocortisone 0.1 MG Tab PO SCH ×2 (08:16→19:00)
[2019-12-04] MEDS: Furosemide 20 MG Tab PO SCH (08:17)
[2019-12-04] MEDS: Niacin 500 MG Tab PO SCH ×2 (08:18→17:51)
[2019-12-04] MEDS: Calcium Carbonate 750 MG Tab.Chew PO SCH (08:18)
[2019-12-04] MEDS: Cholecalciferol (Vitamin D3) 25 MCG Tab PO SCH (08:19)
[2019-12-04] MEDS: Cyanocobalamin (Vitamin B12) 1,000 MCG Tab PO SCH (08:19)
[2019-12-04] MEDS: Acetaminophen 325 MG Tab PO PRN (08:20)
[2019-12-04] MEDS: Aluminum Hydroxide/Magnesium Hydroxide/Simethicone Susp 30 ML Cup PO PRN (09:10)
[2019-12-04] MEDS: Simvastatin 10 MG Tab PO SCH (19:00)
[2019-12-04] MEDS: Levothyroxine Sodium 137 MCG TABLET PO SCH (19:00)
[2019-12-04] MEDS: buPROPion 100 MG Tab PO SCH (19:00)
[2019-12-04] MEDS: IBUPROFEN 600 MG PO PRN (19:01)
[2019-12-05] MEDS: Citalopram 20 MG Tab PO SCH (08:10)
[2019-12-05] MEDS: Albuterol/Ipratropium 3.0-0.5 MG/3 ML Neb Soln NEB SCH ×2 (08:10→19:07)
[2019-12-05] MEDS: Niacin 500 MG Tab PO SCH ×2 (08:11→17:43)
[2019-12-05] MEDS: Furosemide 20 MG Tab PO SCH (08:11)
[2019-12-05] MEDS: Calcium Carbonate 750 MG Tab.Chew PO SCH (08:11)
[2019-12-05] MEDS: Cholecalciferol (Vitamin D3) 25 MCG Tab PO SCH (08:12)
[2019-12-05] MEDS: Cyanocobalamin (Vitamin B12) 1,000 MCG Tab PO SCH (08:12)
[2019-12-05] MEDS: Fludrocortisone 0.1 MG Tab PO SCH ×2 (08:13→19:08)
[2019-12-05] MEDS: Potassium Chloride 20 MEQ Tab.ER PO SCH ×3 (08:14→17:42)
[2019-12-05] MEDS: IBUPROFEN 600 MG PO PRN (08:52)
[2019-12-05] MEDS: Aluminum Hydroxide/Magnesium Hydroxide/Simethicone Susp 30 ML Cup PO PRN (08:53)
[2019-12-05] MEDS: buPROPion 100 MG Tab PO SCH (19:07)
[2019-12-05] MEDS: Simvastatin 10 MG Tab PO SCH (19:07)
[2019-12-05] MEDS: Levothyroxine Sodium 137 MCG TABLET PO SCH (19:07)
[2019-12-05] MEDS: Acetaminophen 325 MG Tab PO PRN (19:08)
[2019-12-06] MEDS: Citalopram 20 MG Tab PO SCH (08:06)
[2019-12-06] MEDS: Fludrocortisone 0.1 MG Tab PO SCH ×2 (08:07→19:14)
[2019-12-06] MEDS: Furosemide 20 MG Tab PO SCH (08:07)
[2019-12-06] MEDS: Potassium Chloride 20 MEQ Tab.ER PO SCH ×3 (08:07→17:57)
[2019-12-06] MEDS: Albuterol/Ipratropium 3.0-0.5 MG/3 ML Neb Soln NEB SCH ×2 (08:08→19:14)
[2019-12-06] MEDS: Cholecalciferol (Vitamin D3) 25 MCG Tab PO SCH (08:09)
[2019-12-06] MEDS: Calcium Carbonate 750 MG Tab.Chew PO SCH (08:09)
[2019-12-06] MEDS: Niacin 500 MG Tab PO SCH ×2 (08:09→17:58)
[2019-12-06] MEDS: Cyanocobalamin (Vitamin B12) 1,000 MCG Tab PO SCH (08:10)
[2019-12-06] MEDS: guaiFENesin/Dextromethorphan 100-10 MG/5 ML Soln 10 ML Cup PO PRN (08:13)
[2019-12-06] MEDS: IBUPROFEN 600 MG PO PRN (18:01)
[2019-12-06] MEDS: Simvastatin 10 MG Tab PO SCH (19:13)
[2019-12-06] MEDS: Levothyroxine Sodium 137 MCG TABLET PO SCH (19:13)
[2019-12-06] MEDS: buPROPion 100 MG Tab PO SCH (19:13)
[2019-12-06] MEDS: Acetaminophen 325 MG Tab PO PRN (19:14)
[2019-12-07] MEDS: Furosemide 20 MG Tab PO SCH (07:57)
[2019-12-07] MEDS: Fludrocortisone 0.1 MG Tab PO SCH ×2 (07:57→19:30)
[2019-12-07] MEDS: Citalopram 20 MG Tab PO SCH (07:57)
[2019-12-07] MEDS: Potassium Chloride 20 MEQ Tab.ER PO SCH ×3 (07:57→17:42)
[2019-12-07] MEDS: Niacin 500 MG Tab PO SCH ×2 (07:58→17:43)
[2019-12-07] MEDS: Calcium Carbonate 750 MG Tab.Chew PO SCH (07:59)
[2019-12-07] MEDS: Cyanocobalamin (Vitamin B12) 1,000 MCG Tab PO SCH (07:59)
[2019-12-07] MEDS: Albuterol/Ipratropium 3.0-0.5 MG/3 ML Neb Soln NEB SCH ×2 (08:00→19:30)
[2019-12-07] MEDS: Cholecalciferol (Vitamin D3) 25 MCG Tab PO SCH (08:00)
[2019-12-07] MEDS: Aluminum Hydroxide/Magnesium Hydroxide/Simethicone Susp 30 ML Cup PO PRN (09:31)
[2019-12-07] MEDS: IBUPROFEN 600 MG PO PRN (17:50)
[2019-12-07] MEDS: Levothyroxine Sodium 137 MCG TABLET PO SCH (19:30)
[2019-12-07] MEDS: Simvastatin 10 MG Tab PO SCH (19:30)
[2019-12-07] MEDS: buPROPion 100 MG Tab PO SCH (19:30)
[2019-12-07] MEDS: Menthol/Methyl Salicylate 85 GM Tube TOP PRN (19:31)
[2019-12-07] MEDS: guaiFENesin/Dextromethorphan 100-10 MG/5 ML Soln 10 ML Cup PO PRN (19:42)
[2019-12-08] MEDS: IBUPROFEN 600 MG PO PRN ×2 (04:05→19:44)
[2019-12-08] MEDS: Albuterol/Ipratropium 3.0-0.5 MG/3 ML Neb Soln NEB SCH ×2 (07:50→19:40)
[2019-12-08] MEDS: Citalopram 20 MG Tab PO SCH (08:46)
[2019-12-08] MEDS: Potassium Chloride 20 MEQ Tab.ER PO SCH ×3 (08:47→17:38)
[2019-12-08] MEDS: Fludrocortisone 0.1 MG Tab PO SCH ×2 (08:47→19:40)
[2019-12-08] MEDS: Niacin 500 MG Tab PO SCH ×2 (08:48→17:41)
[2019-12-08] MEDS: Furosemide 20 MG Tab PO SCH (08:48)
[2019-12-08] MEDS: Calcium Carbonate 750 MG Tab.Chew PO SCH (08:49)
[2019-12-08] MEDS: Cyanocobalamin (Vitamin B12) 1,000 MCG Tab PO SCH (08:49)
[2019-12-08] MEDS: Cholecalciferol (Vitamin D3) 25 MCG Tab PO SCH (08:50)
[2019-12-08] MEDS: Levothyroxine Sodium 137 MCG TABLET PO SCH (19:40)
[2019-12-08] MEDS: buPROPion 100 MG Tab PO SCH (19:40)
[2019-12-08] MEDS: Simvastatin 10 MG Tab PO SCH (19:41)
[2019-12-09] MEDS: Citalopram 20 MG Tab PO SCH (07:49)
[2019-12-09] MEDS: Potassium Chloride 20 MEQ Tab.ER PO SCH ×3 (07:49→17:31)
[2019-12-09] MEDS: Furosemide 20 MG Tab PO SCH (07:49)
[2019-12-09] MEDS: Fludrocortisone 0.1 MG Tab PO SCH ×2 (07:49→19:35)
[2019-12-09] MEDS: Albuterol/Ipratropium 3.0-0.5 MG/3 ML Neb Soln NEB SCH ×2 (07:50→19:34)
[2019-12-09] MEDS: Cyanocobalamin (Vitamin B12) 1,000 MCG Tab PO SCH (07:51)
[2019-12-09] MEDS: Cholecalciferol (Vitamin D3) 25 MCG Tab PO SCH (07:51)
[2019-12-09] MEDS: Niacin 500 MG Tab PO SCH ×2 (07:51→17:30)
[2019-12-09] MEDS: Calcium Carbonate 750 MG Tab.Chew PO SCH (07:51)
[2019-12-09] MEDS: Acetaminophen 325 MG Tab PO PRN (17:31)
[2019-12-09] MEDS: buPROPion 100 MG Tab PO SCH (19:35)
[2019-12-09] MEDS: Simvastatin 10 MG Tab PO SCH (19:35)
[2019-12-09] MEDS: Levothyroxine Sodium 137 MCG TABLET PO SCH (19:35)
[2019-12-10] MEDS: Fludrocortisone 0.1 MG Tab PO SCH ×2 (07:50→19:21)
[2019-12-10] MEDS: Citalopram 20 MG Tab PO SCH (07:50)
[2019-12-10] MEDS: Albuterol/Ipratropium 3.0-0.5 MG/3 ML Neb Soln NEB SCH ×2 (07:50→19:21)
[2019-12-10] MEDS: Niacin 500 MG Tab PO SCH ×2 (07:51→17:36)
[2019-12-10] MEDS: Calcium Carbonate 750 MG Tab.Chew PO SCH (07:51)
[2019-12-10] MEDS: Potassium Chloride 20 MEQ Tab.ER PO SCH ×3 (07:51→17:36)
[2019-12-10] MEDS: Furosemide 20 MG Tab PO SCH (07:51)
[2019-12-10] MEDS: Cholecalciferol (Vitamin D3) 25 MCG Tab PO SCH (07:52)
[2019-12-10] MEDS: Cyanocobalamin (Vitamin B12) 1,000 MCG Tab PO SCH (07:52)
[2019-12-10] MEDS: IBUPROFEN 600 MG PO PRN ×2 (07:53→19:23)
[2019-12-10] MEDS: Acetaminophen 325 MG Tab PO PRN (11:53)
[2019-12-10] MEDS: Levothyroxine Sodium 137 MCG TABLET PO SCH (19:21)
[2019-12-10] MEDS: Simvastatin 10 MG Tab PO SCH (19:22)
[2019-12-10] MEDS: Aluminum Hydroxide/Magnesium Hydroxide/Simethicone Susp 30 ML Cup PO PRN (19:22)
[2019-12-10] MEDS: buPROPion 100 MG Tab PO SCH (19:22)
[2019-12-10] MEDS: Menthol/Methyl Salicylate 85 GM Tube TOP PRN (19:23)
[2019-12-11] MEDS: Citalopram 20 MG Tab PO SCH (07:08)
[2019-12-11] MEDS: Albuterol/Ipratropium 3.0-0.5 MG/3 ML Neb Soln NEB SCH ×2 (07:09→19:07)
[2019-12-11] MEDS: Fludrocortisone 0.1 MG Tab PO SCH ×2 (07:09→19:07)
[2019-12-11] MEDS: Potassium Chloride 20 MEQ Tab.ER PO SCH ×3 (07:09→17:10)
[2019-12-11] MEDS: Furosemide 20 MG Tab PO SCH (07:09)
[2019-12-11] MEDS: Calcium Carbonate 750 MG Tab.Chew PO SCH (07:10)
[2019-12-11] MEDS: Niacin 500 MG Tab PO SCH ×2 (07:10→17:10)
[2019-12-11] MEDS: IBUPROFEN 600 MG PO PRN ×2 (07:11→19:08)
[2019-12-11] MEDS: Cholecalciferol (Vitamin D3) 25 MCG Tab PO SCH (07:11)
[2019-12-11] MEDS: Cyanocobalamin (Vitamin B12) 1,000 MCG Tab PO SCH (07:11)
[2019-12-11] MEDS: Aluminum Hydroxide/Magnesium Hydroxide/Simethicone Susp 30 ML Cup PO PRN ×2 (07:12→19:08)
[2019-12-11] MEDS: Acetaminophen 325 MG Tab PO PRN (11:18)
[2019-12-11] MEDS: Levothyroxine Sodium 137 MCG TABLET PO SCH (19:07)
[2019-12-11] MEDS: buPROPion 100 MG Tab PO SCH (19:08)
[2019-12-11] MEDS: Simvastatin 10 MG Tab PO SCH (19:08)
[2019-12-11] MEDS: Menthol/Methyl Salicylate 85 GM Tube TOP PRN (19:15)
[2019-12-12] MEDS: Albuterol/Ipratropium 3.0-0.5 MG/3 ML Neb Soln NEB SCH ×2 (07:06→19:13)
[2019-12-12] MEDS: Potassium Chloride 20 MEQ Tab.ER PO SCH ×3 (07:07→17:03)
[2019-12-12] MEDS: Fludrocortisone 0.1 MG Tab PO SCH ×2 (07:07→19:13)
[2019-12-12] MEDS: Citalopram 20 MG Tab PO SCH (07:07)
[2019-12-12] MEDS: Furosemide 20 MG Tab PO SCH (07:08)
[2019-12-12] MEDS: Niacin 500 MG Tab PO SCH ×2 (07:09→17:03)
[2019-12-12] MEDS: Calcium Carbonate 750 MG Tab.Chew PO SCH (07:09)
[2019-12-12] MEDS: Cyanocobalamin (Vitamin B12) 1,000 MCG Tab PO SCH (07:09)
[2019-12-12] MEDS: Cholecalciferol (Vitamin D3) 25 MCG Tab PO SCH (07:09)
[2019-12-12] MEDS: Aluminum Hydroxide/Magnesium Hydroxide/Simethicone Susp 30 ML Cup PO PRN (07:10)
[2019-12-12] MEDS: IBUPROFEN 600 MG PO PRN ×2 (07:10→19:14)
[2019-12-12] MEDS: Acetaminophen 325 MG Tab PO PRN (11:05)
[2019-12-12] MEDS: buPROPion 100 MG Tab PO SCH (19:14)
[2019-12-12] MEDS: Simvastatin 10 MG Tab PO SCH (19:14)
[2019-12-12] MEDS: Levothyroxine Sodium 137 MCG TABLET PO SCH (19:14)
[2019-12-12] MEDS: Menthol/Methyl Salicylate 85 GM Tube TOP PRN (19:16)
[2019-12-13] MEDS: Potassium Chloride 20 MEQ Tab.ER PO SCH ×3 (08:00→17:05)
[2019-12-13] MEDS: Citalopram 20 MG Tab PO SCH (08:00)
[2019-12-13] MEDS: Fludrocortisone 0.1 MG Tab PO SCH ×2 (08:00→19:20)
[2019-12-13] MEDS: Niacin 500 MG Tab PO SCH ×2 (08:01→17:06)
[2019-12-13] MEDS: Albuterol/Ipratropium 3.0-0.5 MG/3 ML Neb Soln NEB SCH ×2 (08:01→19:19)
[2019-12-13] MEDS: Furosemide 20 MG Tab PO SCH (08:01)
[2019-12-13] MEDS: Cholecalciferol (Vitamin D3) 25 MCG Tab PO SCH (08:02)
[2019-12-13] MEDS: Cyanocobalamin (Vitamin B12) 1,000 MCG Tab PO SCH (08:02)
[2019-12-13] MEDS: Calcium Carbonate 750 MG Tab.Chew PO SCH (08:02)
[2019-12-13] MEDS: Levothyroxine Sodium 137 MCG TABLET PO SCH (19:21)
[2019-12-13] MEDS: buPROPion 100 MG Tab PO SCH (19:21)
[2019-12-13] MEDS: Simvastatin 10 MG Tab PO SCH (19:21)
[2019-12-13] MEDS: IBUPROFEN 600 MG PO PRN (19:23)
[2019-12-14] MEDS: Fludrocortisone 0.1 MG Tab PO SCH ×2 (07:35→19:17)
[2019-12-14] MEDS: Citalopram 20 MG Tab PO SCH (07:35)
[2019-12-14] MEDS: Potassium Chloride 20 MEQ Tab.ER PO SCH ×3 (07:35→17:40)
[2019-12-14] MEDS: Furosemide 20 MG Tab PO SCH (07:36)
[2019-12-14] MEDS: Niacin 500 MG Tab PO SCH ×2 (07:36→17:40)
[2019-12-14] MEDS: Calcium Carbonate 750 MG Tab.Chew PO SCH (07:37)
[2019-12-14] MEDS: Cholecalciferol (Vitamin D3) 25 MCG Tab PO SCH (07:38)
[2019-12-14] MEDS: Cyanocobalamin (Vitamin B12) 1,000 MCG Tab PO SCH (07:38)
[2019-12-14] MEDS: Albuterol/Ipratropium 3.0-0.5 MG/3 ML Neb Soln NEB SCH ×2 (07:39→19:16)
[2019-12-14] MEDS: Aluminum Hydroxide/Magnesium Hydroxide/Simethicone Susp 30 ML Cup PO PRN (08:47)
[2019-12-14] MEDS: Simvastatin 10 MG Tab PO SCH (19:17)
[2019-12-14] MEDS: Levothyroxine Sodium 137 MCG TABLET PO SCH (19:17)
[2019-12-14] MEDS: buPROPion 100 MG Tab PO SCH (19:17)
[2019-12-14] MEDS: IBUPROFEN 600 MG PO PRN (19:21)
[2019-12-15] MEDS: Acetaminophen 325 MG Tab PO PRN ×2 (00:49→11:52)
[2019-12-15] MEDS: Menthol/Methyl Salicylate 85 GM Tube TOP PRN ×2 (00:49→19:23)
[2019-12-15] MEDS: Albuterol/Ipratropium 3.0-0.5 MG/3 ML Neb Soln NEB SCH ×2 (07:04→19:26)
[2019-12-15] MEDS: Fludrocortisone 0.1 MG Tab PO SCH ×2 (07:05→19:27)
[2019-12-15] MEDS: Citalopram 20 MG Tab PO SCH (07:05)
[2019-12-15] MEDS: Furosemide 20 MG Tab PO SCH (07:05)
[2019-12-15] MEDS: Potassium Chloride 20 MEQ Tab.ER PO SCH ×3 (07:05→17:06)
[2019-12-15] MEDS: Calcium Carbonate 750 MG Tab.Chew PO SCH (07:06)
[2019-12-15] MEDS: Niacin 500 MG Tab PO SCH ×2 (07:06→17:06)
[2019-12-15] MEDS: Cyanocobalamin (Vitamin B12) 1,000 MCG Tab PO SCH (07:06)
[2019-12-15] MEDS: Cholecalciferol (Vitamin D3) 25 MCG Tab PO SCH (07:07)
[2019-12-15] MEDS: IBUPROFEN 600 MG PO PRN ×2 (08:01→19:24)
[2019-12-15] MEDS: Aluminum Hydroxide/Magnesium Hydroxide/Simethicone Susp 30 ML Cup PO PRN ×2 (08:01→19:25)
[2019-12-15] MEDS: buPROPion 100 MG Tab PO SCH (19:26)
[2019-12-15] MEDS: Simvastatin 10 MG Tab PO SCH (19:27)
[2019-12-15] MEDS: Levothyroxine Sodium 137 MCG TABLET PO SCH (19:27)
[2019-12-16] MEDS: Albuterol/Ipratropium 3.0-0.5 MG/3 ML Neb Soln NEB SCH ×2 (07:28→19:11)
[2019-12-16] MEDS: Furosemide 20 MG Tab PO SCH (07:29)
[2019-12-16] MEDS: Potassium Chloride 20 MEQ Tab.ER PO SCH ×3 (07:29→17:58)
[2019-12-16] MEDS: Fludrocortisone 0.1 MG Tab PO SCH ×2 (07:29→19:12)
[2019-12-16] MEDS: Citalopram 20 MG Tab PO SCH (07:29)
[2019-12-16] MEDS: Niacin 500 MG Tab PO SCH ×2 (07:30→17:58)
[2019-12-16] MEDS: IBUPROFEN 600 MG PO PRN ×2 (07:30→19:14)
[2019-12-16] MEDS: Cholecalciferol (Vitamin D3) 25 MCG Tab PO SCH (07:31)
[2019-12-16] MEDS: Cyanocobalamin (Vitamin B12) 1,000 MCG Tab PO SCH (07:31)
[2019-12-16] MEDS: Calcium Carbonate 750 MG Tab.Chew PO SCH (07:31)
[2019-12-16] MEDS: Aluminum Hydroxide/Magnesium Hydroxide/Simethicone Susp 30 ML Cup PO PRN ×2 (09:37→19:16)
[2019-12-16] MEDS: Acetaminophen 325 MG Tab PO PRN (11:04)
[2019-12-16] MEDS: Levothyroxine Sodium 137 MCG TABLET PO SCH (19:12)
[2019-12-16] MEDS: buPROPion 100 MG Tab PO SCH (19:13)
[2019-12-16] MEDS: Simvastatin 10 MG Tab PO SCH (19:13)
[2019-12-17] MEDS: Fludrocortisone 0.1 MG Tab PO SCH ×2 (07:54→19:32)
[2019-12-17] MEDS: Citalopram 20 MG Tab PO SCH (07:54)
[2019-12-17] MEDS: Potassium Chloride 20 MEQ Tab.ER PO SCH ×3 (07:54→17:45)
[2019-12-17] MEDS: Albuterol/Ipratropium 3.0-0.5 MG/3 ML Neb Soln NEB SCH ×2 (07:54→19:33)
[2019-12-17] MEDS: Furosemide 20 MG Tab PO SCH (07:54)
[2019-12-17] MEDS: Niacin 500 MG Tab PO SCH ×2 (07:54→17:45)
[2019-12-17] MEDS: Calcium Carbonate 750 MG Tab.Chew PO SCH (07:55)
[2019-12-17] MEDS: IBUPROFEN 600 MG PO PRN ×2 (07:55→19:35)
[2019-12-17] MEDS: Cyanocobalamin (Vitamin B12) 1,000 MCG Tab PO SCH (07:55)
[2019-12-17] MEDS: Cholecalciferol (Vitamin D3) 25 MCG Tab PO SCH (07:55)
[2019-12-17] MEDS: Levothyroxine Sodium 137 MCG TABLET PO SCH (19:32)
[2019-12-17] MEDS: buPROPion 100 MG Tab PO SCH (19:32)
[2019-12-17] MEDS: Simvastatin 10 MG Tab PO SCH (19:33)
[2019-12-17] MEDS: Aluminum Hydroxide/Magnesium Hydroxide/Simethicone Susp 30 ML Cup PO PRN (19:36)
[2019-12-18] MEDS: Potassium Chloride 20 MEQ Tab.ER PO SCH ×3 (08:06→17:41)
[2019-12-18] MEDS: Citalopram 20 MG Tab PO SCH (08:06)
[2019-12-18] MEDS: Furosemide 20 MG Tab PO SCH (08:06)
[2019-12-18] MEDS: Fludrocortisone 0.1 MG Tab PO SCH ×2 (08:06→19:10)
[2019-12-18] MEDS: Niacin 500 MG Tab PO SCH ×2 (08:07→17:41)
[2019-12-18] MEDS: Albuterol/Ipratropium 3.0-0.5 MG/3 ML Neb Soln NEB SCH ×2 (08:07→19:08)
[2019-12-18] MEDS: Calcium Carbonate 750 MG Tab.Chew PO SCH (08:08)
[2019-12-18] MEDS: Cyanocobalamin (Vitamin B12) 1,000 MCG Tab PO SCH (08:08)
[2019-12-18] MEDS: Cholecalciferol (Vitamin D3) 25 MCG Tab PO SCH (08:09)
[2019-12-18] MEDS: IBUPROFEN 600 MG PO PRN ×2 (08:09→17:42)
[2019-12-18] MEDS: guaiFENesin/Dextromethorphan 100-10 MG/5 ML Soln 10 ML Cup PO PRN (08:11)
[2019-12-18] MEDS: Magnesium Hydroxide 400 MG/5 ML Susp 30 ML Cup PO PRN (11:36)
[2019-12-18] MEDS: buPROPion 100 MG Tab PO SCH (19:10)
[2019-12-18] MEDS: Simvastatin 10 MG Tab PO SCH (19:10)
[2019-12-18] MEDS: Levothyroxine Sodium 137 MCG TABLET PO SCH (19:10)
[2019-12-19] MEDS: Albuterol/Ipratropium 3.0-0.5 MG/3 ML Neb Soln NEB SCH ×2 (07:44→19:28)
[2019-12-19] MEDS: IBUPROFEN 600 MG PO PRN ×2 (07:44→17:33)
[2019-12-19] MEDS: Citalopram 20 MG Tab PO SCH (07:45)
[2019-12-19] MEDS: Furosemide 20 MG Tab PO SCH (07:45)
[2019-12-19] MEDS: Fludrocortisone 0.1 MG Tab PO SCH ×2 (07:45→19:27)
[2019-12-19] MEDS: Potassium Chloride 20 MEQ Tab.ER PO SCH ×3 (07:45→17:33)
[2019-12-19] MEDS: Niacin 500 MG Tab PO SCH ×2 (07:46→17:34)
[2019-12-19] MEDS: Calcium Carbonate 750 MG Tab.Chew PO SCH (07:46)
[2019-12-19] MEDS: Cyanocobalamin (Vitamin B12) 1,000 MCG Tab PO SCH (07:47)
[2019-12-19] MEDS: Cholecalciferol (Vitamin D3) 25 MCG Tab PO SCH (07:47)
[2019-12-19] MEDS: buPROPion 100 MG Tab PO SCH (19:27)
[2019-12-19] MEDS: Simvastatin 10 MG Tab PO SCH (19:27)
[2019-12-19] MEDS: Levothyroxine Sodium 137 MCG TABLET PO SCH (19:27)
[2019-12-20] MEDS: IBUPROFEN 600 MG PO PRN ×2 (07:14→19:29)
[2019-12-20] MEDS: Albuterol/Ipratropium 3.0-0.5 MG/3 ML Neb Soln NEB SCH ×2 (07:14→19:27)
[2019-12-20] MEDS: Furosemide 20 MG Tab PO SCH (07:15)
[2019-12-20] MEDS: Citalopram 20 MG Tab PO SCH (07:15)
[2019-12-20] MEDS: Niacin 500 MG Tab PO SCH ×2 (07:15→17:11)
[2019-12-20] MEDS: Potassium Chloride 20 MEQ Tab.ER PO SCH ×3 (07:15→17:11)
[2019-12-20] MEDS: Fludrocortisone 0.1 MG Tab PO SCH ×2 (07:15→19:28)
[2019-12-20] MEDS: Calcium Carbonate 750 MG Tab.Chew PO SCH (07:16)
[2019-12-20] MEDS: Cholecalciferol (Vitamin D3) 25 MCG Tab PO SCH (07:16)
[2019-12-20] MEDS: Cyanocobalamin (Vitamin B12) 1,000 MCG Tab PO SCH (07:16)
[2019-12-20] MEDS: Acetaminophen 325 MG Tab PO PRN (11:30)
[2019-12-20] MEDS: Simvastatin 10 MG Tab PO SCH (19:27)
[2019-12-20] MEDS: buPROPion 100 MG Tab PO SCH (19:28)
[2019-12-20] MEDS: Levothyroxine Sodium 137 MCG TABLET PO SCH (19:28)
[2019-12-20] MEDS: Menthol/Methyl Salicylate 85 GM Tube TOP PRN (19:29)
[2019-12-20] MEDS: Aluminum Hydroxide/Magnesium Hydroxide/Simethicone Susp 30 ML Cup PO PRN (19:32)
[2019-12-21] MEDS: Albuterol/Ipratropium 3.0-0.5 MG/3 ML Neb Soln NEB SCH ×3 (07:23→19:42)
[2019-12-21] MEDS: Calcium Carbonate 750 MG Tab.Chew PO SCH (07:23)
[2019-12-21] MEDS: Fludrocortisone 0.1 MG Tab PO SCH ×2 (07:24→19:44)
[2019-12-21] MEDS: Citalopram 20 MG Tab PO SCH (07:24)
[2019-12-21] MEDS: Furosemide 20 MG Tab PO SCH ×2 (07:24→18:20)
[2019-12-21] MEDS: Potassium Chloride 20 MEQ Tab.ER PO SCH ×3 (07:24→19:43)
[2019-12-21] MEDS: Niacin 500 MG Tab PO SCH ×2 (07:25→17:14)
[2019-12-21] MEDS: Cyanocobalamin (Vitamin B12) 1,000 MCG Tab PO SCH (07:25)
[2019-12-21] MEDS: Cholecalciferol (Vitamin D3) 25 MCG Tab PO SCH (07:25)
[2019-12-21] MEDS: IBUPROFEN 600 MG PO PRN ×2 (07:26→19:46)
[2019-12-21] MEDS: Acetaminophen 325 MG Tab PO PRN (11:07)
--- NOTE | 2019-12-21 16:46 | PCM.SN ---
- Free Text/Narrative Note: The patient has had some problems with hypoxia with no chest pain or other anginal-type symptoms. Today's chest x-ray, PA and lateral, shows mild to moderate progression of her chronic CHF with mild cardiomegaly but no pulmonary infiltrates, pneumothorax, etc.. The patient's nebulizer therapy will be increased to a 4 times a day basis with increase of her Lasix and potassium chloride later today. No fever or bronchitic type symptoms. Patient has apparently been less cooperative with medical care in recent weeks with somewhat increased depression. I did increase her Wellbutrin SR today. Nursing staff is requesting that I readdress patient's CODE STATUS at time of follow-up visit at time of swing bed rounds on 12/28. Basic metabolic panel and BNP will be conducted on 12/23 with otherwise repeat blood work as per last swing bed care note.
[2019-12-21] MEDS: Levothyroxine Sodium 137 MCG TABLET PO SCH (19:44)
[2019-12-21] MEDS: BUPROPION XL 300MG PO SCH (19:44)
[2019-12-21] MEDS: Menthol/Methyl Salicylate 85 GM Tube TOP PRN (19:45)
[2019-12-21] MEDS: Simvastatin 10 MG Tab PO SCH (19:45)
[2019-12-21] MEDS: Aluminum Hydroxide/Magnesium Hydroxide/Simethicone Susp 30 ML Cup PO PRN (19:46)
[2019-12-22] MEDS: Menthol/Methyl Salicylate 85 GM Tube TOP PRN ×2 (05:42→19:14)
[2019-12-22] MEDS: IBUPROFEN 600 MG PO PRN ×3 (05:42→19:13)
[2019-12-22] MEDS: Acetaminophen 325 MG Tab PO PRN (07:01)
[2019-12-22] MEDS: Citalopram 20 MG Tab PO SCH (07:02)
[2019-12-22] MEDS: Fludrocortisone 0.1 MG Tab PO SCH ×2 (07:02→19:11)
[2019-12-22] MEDS: Albuterol/Ipratropium 3.0-0.5 MG/3 ML Neb Soln NEB SCH ×4 (07:02→19:12)
[2019-12-22] MEDS: Potassium Chloride 20 MEQ Tab.ER PO SCH ×4 (07:03→19:10)
[2019-12-22] MEDS: Calcium Carbonate 750 MG Tab.Chew PO SCH (07:03)
[2019-12-22] MEDS: Niacin 500 MG Tab PO SCH ×2 (07:03→17:08)
[2019-12-22] MEDS: Furosemide 20 MG Tab PO SCH ×2 (07:03→17:08)
[2019-12-22] MEDS: Cholecalciferol (Vitamin D3) 25 MCG Tab PO SCH (07:04)
[2019-12-22] MEDS: Cyanocobalamin (Vitamin B12) 1,000 MCG Tab PO SCH (07:04)
[2019-12-22] MEDS: BUPROPION XL 300MG PO SCH (19:11)
[2019-12-22] MEDS: Simvastatin 10 MG Tab PO SCH (19:12)
[2019-12-22] MEDS: Levothyroxine Sodium 137 MCG TABLET PO SCH (19:12)
[2019-12-22] MEDS: Aluminum Hydroxide/Magnesium Hydroxide/Simethicone Susp 30 ML Cup PO PRN (19:15)
[2019-12-23] MEDS: Cyanocobalamin (Vitamin B12) 1,000 MCG Tab PO SCH (08:05)
[2019-12-23] MEDS: Citalopram 20 MG Tab PO SCH (08:05)
[2019-12-23] MEDS: Niacin 500 MG Tab PO SCH ×2 (08:05→17:49)
[2019-12-23] MEDS: Albuterol/Ipratropium 3.0-0.5 MG/3 ML Neb Soln NEB SCH ×4 (08:05→19:17)
[2019-12-23] MEDS: Furosemide 20 MG Tab PO SCH ×2 (08:05→17:48)
[2019-12-23] MEDS: Potassium Chloride 20 MEQ Tab.ER PO SCH ×4 (08:05→19:19)
[2019-12-23] MEDS: Fludrocortisone 0.1 MG Tab PO SCH ×2 (08:05→19:17)
[2019-12-23] MEDS: Calcium Carbonate 750 MG Tab.Chew PO SCH (08:06)
[2019-12-23] MEDS: Cholecalciferol (Vitamin D3) 25 MCG Tab PO SCH (08:06)
[2019-12-23 08:32] LABS: CHLORIDE,CL 109 mmol/L (98-107); SODIUM,NA 145 mmol/L (136-145)
[2019-12-23] MEDS: Acetaminophen 325 MG Tab PO PRN (18:11)
[2019-12-23] MEDS: BUPROPION XL 300MG PO SCH (19:18)
[2019-12-23] MEDS: Levothyroxine Sodium 137 MCG TABLET PO SCH (19:18)
[2019-12-23] MEDS: Simvastatin 10 MG Tab PO SCH (19:18)
[2019-12-23] MEDS: Aluminum Hydroxide/Magnesium Hydroxide/Simethicone Susp 30 ML Cup PO PRN (19:20)
[2019-12-24] MEDS: IBUPROFEN 600 MG PO PRN ×2 (01:23→17:43)
[2019-12-24] MEDS: Potassium Chloride 20 MEQ Tab.ER PO SCH ×4 (07:51→19:18)
[2019-12-24] MEDS: Fludrocortisone 0.1 MG Tab PO SCH ×2 (07:51→19:16)
[2019-12-24] MEDS: Furosemide 20 MG Tab PO SCH ×2 (07:51→17:42)
[2019-12-24] MEDS: Citalopram 20 MG Tab PO SCH (07:51)
[2019-12-24] MEDS: Albuterol/Ipratropium 3.0-0.5 MG/3 ML Neb Soln NEB SCH ×4 (07:51→19:16)
[2019-12-24] MEDS: Niacin 500 MG Tab PO SCH ×2 (07:52→17:42)
[2019-12-24] MEDS: Calcium Carbonate 750 MG Tab.Chew PO SCH (07:52)
[2019-12-24] MEDS: Cyanocobalamin (Vitamin B12) 1,000 MCG Tab PO SCH (07:52)
[2019-12-24] MEDS: Cholecalciferol (Vitamin D3) 25 MCG Tab PO SCH (07:52)
[2019-12-24] MEDS: Levothyroxine Sodium 137 MCG TABLET PO SCH (19:17)
[2019-12-24] MEDS: Simvastatin 10 MG Tab PO SCH (19:17)
[2019-12-24] MEDS: BUPROPION XL 300MG PO SCH (19:17)
[2019-12-24] MEDS: Aluminum Hydroxide/Magnesium Hydroxide/Simethicone Susp 30 ML Cup PO PRN (19:20)
[2019-12-25] MEDS: Citalopram 20 MG Tab PO SCH (07:52)
[2019-12-25] MEDS: Fludrocortisone 0.1 MG Tab PO SCH ×2 (07:52→19:11)
[2019-12-25] MEDS: Potassium Chloride 20 MEQ Tab.ER PO SCH ×4 (07:52→19:11)
[2019-12-25] MEDS: Furosemide 20 MG Tab PO SCH ×2 (07:52→17:36)
[2019-12-25] MEDS: Niacin 500 MG Tab PO SCH ×2 (07:52→17:36)
[2019-12-25] MEDS: Cyanocobalamin (Vitamin B12) 1,000 MCG Tab PO SCH (07:53)
[2019-12-25] MEDS: Calcium Carbonate 750 MG Tab.Chew PO SCH (07:53)
[2019-12-25] MEDS: Albuterol/Ipratropium 3.0-0.5 MG/3 ML Neb Soln NEB SCH ×4 (07:54→19:10)
[2019-12-25] MEDS: Cholecalciferol (Vitamin D3) 25 MCG Tab PO SCH (07:54)
[2019-12-25] MEDS: IBUPROFEN 600 MG PO PRN ×2 (08:00→19:18)
[2019-12-25] MEDS: BUPROPION XL 300MG PO SCH (19:12)
[2019-12-25] MEDS: Levothyroxine Sodium 137 MCG TABLET PO SCH (19:12)
[2019-12-25] MEDS: Simvastatin 10 MG Tab PO SCH (19:12)
[2019-12-26] MEDS: Potassium Chloride 20 MEQ Tab.ER PO SCH ×4 (07:56→19:22)
[2019-12-26] MEDS: Furosemide 20 MG Tab PO SCH ×2 (07:56→17:11)
[2019-12-26] MEDS: Fludrocortisone 0.1 MG Tab PO SCH ×2 (07:57→19:22)
[2019-12-26] MEDS: Citalopram 20 MG Tab PO SCH (07:57)
[2019-12-26] MEDS: Albuterol/Ipratropium 3.0-0.5 MG/3 ML Neb Soln NEB SCH ×4 (07:58→19:20)
[2019-12-26] MEDS: Cyanocobalamin (Vitamin B12) 1,000 MCG Tab PO SCH (07:59)
[2019-12-26] MEDS: Niacin 500 MG Tab PO SCH ×2 (07:59→17:12)
[2019-12-26] MEDS: Cholecalciferol (Vitamin D3) 25 MCG Tab PO SCH (07:59)
[2019-12-26] MEDS: Calcium Carbonate 750 MG Tab.Chew PO SCH (08:00)
[2019-12-26] MEDS: BUPROPION XL 300MG PO SCH (19:23)
[2019-12-26] MEDS: Simvastatin 10 MG Tab PO SCH (19:23)
[2019-12-26] MEDS: Levothyroxine Sodium 137 MCG TABLET PO SCH (19:23)
[2019-12-26] MEDS: IBUPROFEN 600 MG PO PRN (19:24)
[2019-12-27] MEDS: Citalopram 20 MG Tab PO SCH (07:55)
[2019-12-27] MEDS: Potassium Chloride 20 MEQ Tab.ER PO SCH ×4 (07:55→19:17)
[2019-12-27] MEDS: Furosemide 20 MG Tab PO SCH ×2 (07:55→17:44)
[2019-12-27] MEDS: Fludrocortisone 0.1 MG Tab PO SCH ×2 (07:55→19:17)
[2019-12-27] MEDS: Albuterol/Ipratropium 3.0-0.5 MG/3 ML Neb Soln NEB SCH ×4 (07:56→19:16)
[2019-12-27] MEDS: Calcium Carbonate 750 MG Tab.Chew PO SCH (07:57)
[2019-12-27] MEDS: Niacin 500 MG Tab PO SCH ×2 (07:57→17:44)
[2019-12-27] MEDS: Cyanocobalamin (Vitamin B12) 1,000 MCG Tab PO SCH (07:57)
[2019-12-27] MEDS: Cholecalciferol (Vitamin D3) 25 MCG Tab PO SCH (07:58)
[2019-12-27] MEDS: IBUPROFEN 600 MG PO PRN ×2 (08:00→17:45)
[2019-12-27] MEDS: Aluminum Hydroxide/Magnesium Hydroxide/Simethicone Susp 30 ML Cup PO PRN ×2 (08:34→19:23)
[2019-12-27] MEDS: Levothyroxine Sodium 137 MCG TABLET PO SCH (19:21)
[2019-12-27] MEDS: Simvastatin 10 MG Tab PO SCH (19:22)
[2019-12-27] MEDS: BUPROPION XL 300MG PO SCH (19:22)
[2019-12-27] MEDS: Acetaminophen 325 MG Tab PO PRN (19:23)
[2019-12-27] MEDS: Menthol/Methyl Salicylate 85 GM Tube TOP PRN (19:23)
[2019-12-28 07:22] LABS: HEMOGLOBIN A1C 5.2 % (4.3-5.7)
[2019-12-28 07:48] LABS: CHLORIDE,CL 109 mmol/L (98-107); SODIUM,NA 146 mmol/L (136-145)
[2019-12-28] MEDS: Furosemide 20 MG Tab PO SCH ×2 (07:59→17:42)
[2019-12-28] MEDS: Potassium Chloride 20 MEQ Tab.ER PO SCH ×4 (07:59→19:34)
[2019-12-28] MEDS: Fludrocortisone 0.1 MG Tab PO SCH ×2 (08:00→19:34)
[2019-12-28] MEDS: Citalopram 20 MG Tab PO SCH (08:00)
[2019-12-28] MEDS: Niacin 500 MG Tab PO SCH ×2 (08:01→17:42)
[2019-12-28] MEDS: Albuterol/Ipratropium 3.0-0.5 MG/3 ML Neb Soln NEB SCH ×4 (08:01→19:31)
[2019-12-28] MEDS: Calcium Carbonate 750 MG Tab.Chew PO SCH (08:02)
[2019-12-28] MEDS: Cyanocobalamin (Vitamin B12) 1,000 MCG Tab PO SCH (08:02)
[2019-12-28] MEDS: IBUPROFEN 600 MG PO PRN ×2 (08:03→17:44)
[2019-12-28] MEDS: Cholecalciferol (Vitamin D3) 25 MCG Tab PO SCH (08:03)
--- NOTE | 2019-12-28 11:07 | PCM.PN ---
- General Info Date of Service: 12/28/19 Admission Dx/Problem (Free Text): 1. Recurrent C. difficile colitis 2. Chronic diarrhea 3. Myotonic dystrophy with secondary weakness Functional Status: Reports: Pain Controlled, Tolerating Diet, Ambulating (With assist), Urinating, New Symptoms (Bilateral lower rib pain), Incentive Spirometry Pain Score: 6 - Review of Systems General: Reports: Weakness (Stable chronic), Fatigue (Stable chronic). Denies: Fever, Malaise, Chills, Night Sweats, Appetite (Adequate) HEENT: Reports: No Symptoms. Denies: Ear Pain, Eye Pain, Headaches, Sinus Congestion, Sore Throat, Rhinitis Pulmonary: Reports: Pleuritic Chest Pain (As above). Denies: Shortness of Breath, Cough, Sputum, Hemoptysis, Wheezing Cardiovascular: Reports: Chest Pain (Pleurisy as above), Dyspnea on Exertion, Edema (Stable dependent as below). Denies: Palpitations, Orthopnea, Lightheadedness Gastrointestinal: Reports: No Symptoms. Denies: Abdominal Pain, Constipation, Decreased Appetite, Diarrhea, Difficulty Swallowing, Flatus, Hematochezia, Melena, Nausea, Vomiting Genitourinary: Reports: No Symptoms. Denies: Dysuria, Burning, Pain, Urgency, Hematuria, Retention, Flank Pain Musculoskeletal: Reports: No Symptoms. Denies: Neck Pain, Shoulder Pain, Arm Pain, Back Pain, Leg Pain Skin: Reports: No Symptoms. Denies: Diaphoresis, Bruising Neurological: Reports: Pre-Existing Deficit (Stable), Difficulty Walking (As before), Weakness (Stable chronic), Gait Disturbance (As before), Other (Stable mild perioral tardive dyskinesia ). Denies: Confusion, Dizziness, Headache, Numbness Psychiatric: Reports: Depression (Mild to moderate), Anxiety (Mild). Denies: Confusion, Agitation, Cravings, Hallucinations - Patient Data Vitals - Most Recent: Last Vital Signs Temp 36.0 C 12/28/19 08:00 Pulse 68 12/28/19 08:00 Resp 20 12/21/19 08:00 BP 106/64 12/28/19 08:00 Pulse Ox 96 12/28/19 08:00 Weight - Most Recent: 91.852 kg (Down 2 kg in the last 2 months) I&O - Last 24 Hours: Intake & Output 12/27/19 12/28/19 12/28/19 22:59 06:59 14:59 Intake Total 740 500 600 Balance 740 500 600 Imaging Impressions - Last 24 Hours: Chest x-ray, PA and lateral, shows increasing consolidation right lower lobe with moderately elevated hemidiaphragm and COPD changes. Possible concomitant CHF with the Krunal B lines with increasing additional lower lobe atelectasis, etc. Lab Results Last 24 Hours: Laboratory Results - last 24 hr 12/28/19 12/28/19 12/28/19 Range/Units 07:09 07:09 07:09 WBC 5.4 (4.0-10.2) K/uL RBC 4.11 (3.77-5.09) M/uL Hgb 13.4 (11.7-15.5) g/dL Hct 42.6 (34.0-46.0) % MCV 103.6 H (84.0-98.0) fL MCH 32.6 (28.2-33.3) pg MCHC 31.5 L (31.7-36.0) g/dL RDW 14.3 H (11.2-14.1) % Plt Count 119 L (150-350) K/uL Neut % (Auto) 62.2 (45.0-80.0) % Lymph % (Auto) 29.3 (10.0-50.0) % [place] % (Auto) 6.2 (2.0-14.0) % Eos % (Auto) 2.1 (0.0-5.0) % Baso % (Auto) 0.2 (0.0-2.0) % Neut # (Auto) 3.33 (1.40-7.00) K/uL Lymph # (Auto) 1.57 (0.50-3.50) K/uL [place] # (Auto) 0.33 (0.00-1.00) K/uL Eos # (Auto) 0.11 (0.00-0.50) K/uL Baso # (Auto) 0.01 (0.00-0.20) K/uL Sodium 146 H (136-145) mmol/L Potassium 4.0 (3.5-5.1) mmol/L Chloride 109 H (98-107) mmol/L Carbon Dioxide 26.4 (21.0-32.0) mmol/L BUN 12 (7-18) mg/dL Creatinine 0.63 (0.51-1.17) mg/dL Est Cr Clr Drug Dosing 90.50 mL/min Estimated GFR (MDRD) > 60 mL/min Glucose 97 (74-106) mg/dL Hemoglobin A1c 5.2 (4.3-5.7) % Calcium 8.8 (8.5-10.1) mg/dL Phosphorus 1.8 L (2.6-4.7) mg/dL Total Bilirubin 0.4 (0.2-1.0) mg/dL AST 18 (15-37) U/L ALT 21 (12-78) U/L Alkaline Phosphatase 91 (46-116) IU/L Creatine Kinase 97 (26-308) U/L Creatine Kinase Index 1.5 (0.0-2.5) % CK-MB (CK-2) 1.50 (0.00-3.60) ng/mL Troponin I 0.000 (0.000-0.056) ng/mL NT-Pro-B Natriuret Pep 97 (0-125) pg/mL Total Protein 5.6 L (6.4-8.2) g/dL Albumin 3.3 L (3.4-5.0) g/dL Sandor Results Last 24 Hours: None Med Orders - Current: Current Medications Acetaminophen (Tylenol) 650 mg PO Q4H PRN PRN Reason: Pain Last Admin: 12/27/19 19:23 Dose: 650 mg Al Hydroxide/Mg Hydroxide (Mag-Al Plus) 30 ml PO Q4H PRN PRN Reason: Indigestion Last Admin: 12/27/19 19:23 Dose: 30 ml Albuterol/Ipratropium (Duoneb 3.0-0.5 Mg/3 Ml) 3 ml NEB Q4HRRT PRN PRN Reason: Dyspnea Last Admin: 07/23/19 13:16 Dose: 3 ml Albuterol/Ipratropium (Duoneb 3.0-0.5 Mg/3 Ml) 3 ml NEB QIDRT [facility] Last Admin: 12/28/19 08:01 Dose: 3 ml Calcium Carbonate/Glycine (Tums Extra Strength) 1,500 mg PO DAILY [facility] Last Admin: 12/28/19 08:02 Dose: 1,500 mg Cholecalciferol (Vitamin D3) 25 mcg PO DAILY [facility] Last Admin: 12/28/19 08:03 Dose: 25 mcg Citalopram Hydrobromide (Celexa) 20 mg PO QAM [facility] Last Admin: 12/28/19 08:00 Dose: 20 mg Cyanocobalamin (Vitamin B12) 1,000 mcg PO QAM [facility] Last Admin: 12/28/19 08:02 Dose: 1,000 mcg Fludrocortisone Acetate (Florinef) 0.1 mg PO BEDTIME [facility] Last Admin: 12/27/19 19:17 Dose: 0.1 mg Fludrocortisone Acetate (Florinef) 0.2 mg PO QAM [facility] Last Admin: 12/28/19 08:00 Dose: 0.2 mg Furosemide (Lasix) 20 mg PO BID [facility] Last Admin: 12/28/19 07:59 Dose: 20 mg Guaifenesin/Dextromethorphan (Robitussin Dm) 10 ml PO Q4H PRN PRN Reason: Cough Last Admin: 12/18/19 08:11 Dose: 10 ml Ibuprofen (Motrin) 600 mg PO Q6H PRN PRN Reason: Breakthrough Pain Last Admin: 12/28/19 08:03 Dose: 600 mg Magnesium Hydroxide (Milk Of Magnesia) 30 ml PO DAILY PRN PRN Reason: Constipation Last Admin: 12/18/19 11:36 Dose: 30 ml Methyl Salicylate (Icy Hot Cream) 0 gm TOP QID PRN PRN Reason: Pain (mild 1-3) Last Admin: 12/27/19 19:23 Dose: 1 applic Niacin (Niacin) 500 mg PO BID [facility] Last Admin: 12/28/19 08:01 Dose: 500 mg Levothyroxine Sodium (137 Mcg Tablet) 137 mcg PO BEDTIME [facility] Last Admin: 12/27/19 19:21 Dose: 137 mcg Bupropion Xl 300mg 1 each PO BEDTIME [facility] Last Admin: 12/27/19 19:22 Dose: 1 each Potassium Chloride (Klor-Con M20) 40 meq PO QID [facility] Last Admin: 12/28/19 07:59 Dose: 40 meq Simvastatin (Zocor) 10 mg PO BEDTIME [facility] Last Admin: 12/27/19 19:22 Dose: 10 mg Discontinued Medications Albuterol/Ipratropium (Duoneb 3.0-0.5 Mg/3 Ml) 3 ml NEB BIDRT [facility] Last Admin: 12/21/19 07:23 Dose: 3 ml Betamethasone/Clotrimazole (Lotrisone) 0 gm TOP Q12HR [facility] Last Admin: 07/23/19 08:20 Dose: 1 applic Bisacodyl (Dulcolax) 10 mg PO ONETIME ONE Stop: 09/21/19 18:01 Last Admin: 09/21/19 17:41 Dose: 10 mg Bisacodyl (Dulcolax) 10 mg PO ONETIME ONE Stop: 09/22/19 18:01 Last Admin: 09/22/19 17:24 Dose: 10 mg Budesonide (Pulmicort) 0.5 mg NEB Q12HR [facility] Stop: 08/06/19 20:01 Last Admin: 08/06/19 19:35 Dose: 0.5 mg Bupropion HCl (Wellbutrin) 150 mg PO BEDTIME [facility] Last Admin: 12/20/19 19:28 Dose: 150 mg Calcium Carbonate/Glycine (Tums) 500 mg PO TID@0800,1400,2000 [facility] Last Admin: 11/10/19 07:06 Dose: 500 mg Cholecalciferol (Vitamin D3) 1,000 mcg PO QAM [facility] Last Admin: 05/26/19 08:49 Dose: Not Given Diphenoxylate HCl/Atropine (Lomotil 0.025-2.5 Mg) 1 tab PO TID PRN PRN Reason: Diarrhea Last Admin: 09/29/19 09:52 Dose: 1 tab Furosemide (Lasix) 20 mg PO DAILY [facility] Last Admin: 12/21/19 07:24 Dose: 20 mg Guaifenesin/Dextromethorphan (Robitussin Dm) 10 ml PO Q4H PRN PRN Reason: Cough Last Admin: 07/20/19 19:28 Dose: 10 ml Guaifenesin/Pseudoephedrine HCl (Mucinex D Er 600-60 Mg) 1 tab PO Q12H [facility] Stop: 07/31/19 20:01 Last Admin: 07/31/19 19:30 Dose: 1 tab Influenza Virus Vaccine (Fluzone Quad [id number] Syringe) 60 mcg IM .ONCE ONE Stop: 09/07/19 14:01 Last Admin: 09/07/19 13:37 Dose: 60 mcg Vancomycin 125mg (Capsules) 1 each PO QID [facility] Stop: 06/29/19 16:01 Last Admin: 06/29/19 17:37 Dose: 1 each Fidaxomicin (Dificid () 200mg Tablet) 1 each PO BID [facility] Stop: 07/09/19 08:01 Last Admin: 07/09/19 07:24 Dose: 1 each Benzonatate 200mg (Cap Own Med ) 200 each PO Q12HR [facility] Stop: 08/06/19 20:01 Last Admin: 08/06/19 19:45 Dose: Not Given Nystatin And Triamcinolone Crm ( Mycolog) Own Med 1 each TOP Q12HR [facility] Stop: 08/02/19 20:01 Last Admin: 08/02/19 19:16 Dose: 1 each Nystatin (Nystatin Crm) 1 gm TOP BID [facility] Last Admin: 08/04/19 07:52 Dose: 1 applic Nystatin (Nystatin Crm) 1 gm TOP Q12HR [facility] Last Admin: 08/09/19 07:36 Dose: 1 applic Polyethylene Glycol (Miralax) 238 gm PO ONETIME ONE Stop: 09/22/19 12:01 Last Admin: 09/22/19 11:36 Dose: 238 gram Potassium Chloride (Potassium Chloride Solution) 40 meq PO TID@08,14,20 [facility] Last Admin: 08/03/19 14:18 Dose: 40 meq Potassium Chloride (Klor-Con M20) 40 meq PO TID [facility] Last Admin: 12/21/19 11:06 Dose: 40 meq - Exam Quality Assessment: Supplemental Oxygen, DVT Prophylaxis. No: Central Line/PICC , Urine Catheter General: Alert, Oriented, Cooperative, No Acute Distress HEENT: Pupils Equal, Pupils Reactive, EOMI, Mucous Membr. Moist/May, Other. No : Scleral Icterus Neck: Supple, Trachea Midline, No JVD, No Thyromegaly, +2 Carotid Pulse wo Bruit. No: Lymphadenopathy Lungs: Normal Respiratory Effort, Decreased Breath Sounds (Bases bilaterally mild), Rales (Mild bilateral basilar rales). No: Rhonchi, Rub, Stridor, Wheezing Cardiovascular: Regular Rate, Regular Rhythm, No Murmurs. No: Gallops, Rubs GI/Abdominal Exam: Normal Bowel Sounds, Soft, Non-Tender, No Organomegaly, No Distention, No Abnormal Bruit, No Mass, Pelvis Stable, Other (Obese). No: Guarding (Female) Exam: Deferred Back Exam: Normal Inspection, Full Range of Motion. No: CVA Tenderness (L), CVA Tenderness (R), Muscle Spasm Extremities: Normal Range of Motion, Non-Tender, Normal Capillary Refill, Pedal Edema (Stable mild lymphedema of the lower extremities with Xavier wraps in place) . No: Lurdes's Sign Peripheral Pulses: 2+: Radial (L), Radial (R) Skin: Warm, Dry, Intact. No: Ecchymosis Neurological: No New Focal Deficit, Other (Stable chronic weakness with stable mild to moderate perioral tardive dyskinesia) Psy/Mental Status: Anxious (Mild), Depressed (Mild to moderate). No: Agitated, Suicidal Ideation, Homicidal Ideation, Hallucinations, Withdrawal Symptoms Sepsis Event Note - Evaluation Sepsis Screening Result: No Definite Risk - Focused Exam Vital Signs: Vital Signs Temp Pulse BP Pulse Ox 12/28/19 08:00 36.0 C 68 106/64 96 Date Exam was Performed: 12/29/19 Time Exam was Performed: 00:26 - Problem List & Annotations (1) Steinert myotonic dystrophy syndrome SNOMED Code(s): 330852750 Code(s): G71.11 - MYOTONIC MUSCULAR DYSTROPHY Status: Chronic Priority: Medium Current Visit: Yes Annotation/Comment:: Stable by history and today' s exam. Physical therapy in effect. Continue current medical therapy. (2) CHF, Congestive heart failure SNOMED Code(s): 69892392 Code(s): I50.9 - HEART FAILURE, UNSPECIFIED Status: Chronic Priority: Medium Current Visit: Yes Annotation/Comment:: Official x-ray report does not indicate any specific CHF. Note progressive nonspecific bilateral lower lobe atelectasis versus nonspecific changes, right greater than left, with CT scan of the chest recommended by the radiologist. CT of the chest will be conducted tomorrow with further follow-up x-rays, etc. depending on those results. BNP is normal today with no direct clinical evidence of significant CHF. Despite stable lateral wall cardiac ischemia by EKG since April 2019 difficult to assess secondary to her bifascicular bundle-branch block. No chest pain or anginal type symptoms. Stable dependent edema and weight since 12/10/17. Her weight continues to be variable secondary to previous dietary noncompliance , however no direct evidence of significant weight gain or CHF as above. Note previous discontinuation of high protein Glucerna supplements as snacks. Dietary consultation in effect. Activity level is overall low. Chest x-ray on did indicate some probable worsening CHF by my evaluation. X-ray report indicated some possible pneumonia, however note patient is afebrile with no leukocytosis or bronchitic type symptoms. Secondary to suspected previous CHF an echocardiogram has been performed today, although I did not receive a preliminary verbal report from the commercial hvac technician despite my previous request. The patient's CODE STATUS was once again addressed per request from the nursing staff with the patient wishing to continue to be a FULL CODE. Continue to observe closely. Note previous history of PVCs, complete right bundle branch block/bifascicular bundle-branch block, first-degree AV block, severe dyslipidemia hypokalemia, hypophosphatemia, and hyponatremia. Continue to observe for now with no further change in medical therapy. Further cardiology workup and/or consultation depending on her clinical course. Note Increase of her Lasix therapy, etc. on 12/21 with overall good clinical results. (3) C. difficile colitis SNOMED Code(s): 760396302 Code(s): A04.72 - ENTEROCOLITIS D/T CLOSTRIDIUM DIFFICILE, NOT SPCF RECUR Status: Chronic Priority: Medium Current Visit: Yes Onset Date: Annotation/Comment:: Colonoscopy completed on 09/23/19 with excision of a tubular adenoma from the ascending colon. No apparent evidence of significant colitis by this procedure, however I could not find any record of serial biopsies as previously requested. The patient has since been placed off of isolation precautions. Her diarrhea has not returned. 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 Her room has been properly disinfected. Patient has been treated previously with multiple courses of Flagyl and vancomycin with the patient likely a chronic carrier. Central laboratories previously refused repeat stool C. difficile analysis since the patient no longer had diarrhea and that this evaluation may remain positive for several months. This issue was previously brought up in medical staff for further review and discussion with no further follow-up at this time. Continue to observe closely with repeat antibiotic treatment, stool transplant, etc. depending on her clinical course. (4) Gastroesophageal reflux disease SNOMED Code(s): 091708895 Code(s): K21.9 - GASTRO-ESOPHAGEAL REFLUX DISEASE WITHOUT ESOPHAGITIS Status: Acute Priority: Medium Current Visit: Yes Annotation/Comment:: No abdominal complaints at this time in spite of occasionally required ibuprofen therapy. Some pleurisy today with ibuprofen given earlier this morning. Patient is also requesting orange juice for breakfast in the morning, although nursing staff have indicated that she does get some diarrhea when drinking juices. Initiate a trial of small amounts of juices at this time. Tums has been started as GI prophylaxis with overall good results. Otherwise stable by history despite discontinuation of Reglan therapy. No other GI medications required at this time with previous discontinuation of Prilosec, etc. secondary to her recurrent C. difficile colitis. (5) COPD (chronic obstructive pulmonary disease) SNOMED Code(s): 36612676 Code(s): J44.9 - CHRONIC OBSTRUCTIVE PULMONARY DISEASE, UNSPECIFIED Status : Chronic Priority: Medium Current Visit: Yes Qualifiers: COPD type: emphysema Emphysema type: panlobular Qualified Code(s): J43.1 - Panlobular emphysema Annotation/Comment:: As above. O2 dependent COPD stable by history with no bronchitic symptoms at this time. Continue current medical therapy. Patient does have a previous history of distant postoperative respiratory distress, although no complications after previous dental surgery. (6) Hyperglycemia SNOMED Code(s): 96434670 Code(s): R73.9 - HYPERGLYCEMIA, UNSPECIFIED Status: Chronic Priority: Medium Current Visit: Yes Onset Date: 06/29/15 Annotation/Comment:: Hemoglobin A1c normal at 5.2% today. Dietary consultation is in effect as above. (7) Hyperlipidemia SNOMED Code(s): 37668803 Code(s): E78.5 - HYPERLIPIDEMIA, UNSPECIFIED Status: Chronic Priority: Medium Current Visit: Yes Annotation/Comment:: Lipid Panel in April 2019 showed mild persistent hypertriglyceridemia. Previous history of severe dyslipidemia with aggressive medical therapy at this time. Dietary compliance once again strongly encouraged. No change in medical therapy for now with previous history of CPK elevation. (8) Hypothyroidism SNOMED Code(s): 64292549 Code(s): E03.9 - HYPOTHYROIDISM, UNSPECIFIED Status: Chronic Priority: Medium Current Visit: Yes Annotation/Comment:: TSH normal in April 2019. No other thyroid type symptoms. (9) Mixed anxiety and depressive disorder SNOMED Code(s): 338720986 Code(s): F41.8 - OTHER SPECIFIED ANXIETY DISORDERS Status: Chronic Priority: Medium Current Visit: Yes Annotation/Comment:: Recent worsening of her anxiety depression disorder with Wellbutrin SR therapy increased on . By my clinical evaluation her symptoms have improved since that time, although she still needs to be watched closely by nursing staff, etc.. Patient is still relatively active with physical therapy, however she is still often alone in her room. The patient was once again encouraged to become more active with social activities, etc. (10) Orthostatic hypotension SNOMED Code(s): 84014485 Code(s): I95.1 - ORTHOSTATIC HYPOTENSION Status: Chronic Priority: Medium Current Visit: Yes Annotation/Comment:: No recent falls or injuries. Previous problems with recurrent falls including right ankle fracture on . The patient and nursing staff are continuing strict compliance with previously ordered fall precautions, walker use, etc. Continue activity restrictions as per physical therapy, and occupational therapy. Continue current Florinef with otherwise relatively stable decreased systolic blood pressures. No change in therapy. (11) Tardive dyskinesia SNOMED Code(s): 761867638 Code(s): G24.01 - DRUG INDUCED SUBACUTE DYSKINESIA Status: Chronic Priority: Medium Current Visit: Yes Annotation/Comment:: Stable by history. 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 Neurological status is otherwise stable.. Note that patient does have complete dentures uppers and lowers, which does tend to aggravate her problem. No significant clinical relevance at this time with no change in medical therapy for now. (12) Hypoalbuminemia SNOMED Code(s): 840083783 Code(s): E88.09 - OTH DISORDERS OF PLASMA-PROTEIN METABOLISM, NEC Status: Chronic Priority: Medium Current Visit: Yes Annotation/Comment:: Glucerna high-protein has been discontinued per recommendations from dietitian secondary to persistent weight gain. Continue high-protein diet as above. Observe for now. Her albumin and total protein are still decreased today. (13) Macrocytosis SNOMED Code(s): 912930494 Code(s): D75.89 - OTHER SPECIFIED DISEASES OF BLOOD AND BLOOD-FORMING ORGANS Status: Chronic Priority: High Current Visit: Yes Onset Date: 06/29/15 Annotation/Comment:: No anemia with persistent macrocytosis however normal vitamin B 12 and folic acid levels previously Mild intermittent thrombocytopenia , which is currently nonproblematic. Continue routine blood work and vitamin B- 12 supplementation. (14) Osteoarthritis SNOMED Code(s): 859367809 Code(s): M19.90 - UNSPECIFIED OSTEOARTHRITIS, UNSPECIFIED SITE Status: Chronic Priority: Medium Current Visit: Yes Annotation/Comment:: Some pleurisy today as above. No other complaints today with previous intermittent mild generalized arthralgias, however nonproblematic at this time with the patient nonsymptomatic despite discontinuation of Ultram. PT in effect as above. Note status post bilateral ankle ORIF secondary to fractures. Previous recurrent falls in February 2019 have improved with no recent significant falls or injuries. (15) Peptic reflux disease SNOMED Code(s): 602846587 Code(s): K21.9 - GASTRO-ESOPHAGEAL REFLUX DISEASE WITHOUT ESOPHAGITIS Status: Chronic Priority: Medium Current Visit: Yes Annotation/Comment:: Stable by history - Problem List Review Problem List Initiated/Reviewed/Updated: Yes - My Orders Last 24 Hours: My Active Orders 12/28/19 05:11 Chest 2V [CR] Routine Echo Comp wo Cont [US] Urgent - Assessment Assessment:: As above - Plan Plan:: As above. Patient is also recertified for an additional 2 months of swing bed care with chronic placement secondary to multiple illnesses as above. Blood work , etc. to be repeated in 4 months at time of next rounds. Yearly blood work due in April.
[2019-12-28] MEDS: Acetaminophen 325 MG Tab PO PRN (11:17)
[2019-12-28] MEDS: BUPROPION XL 300MG PO SCH (19:35)
[2019-12-28] MEDS: Levothyroxine Sodium 137 MCG TABLET PO SCH (19:35)
[2019-12-28] MEDS: Simvastatin 10 MG Tab PO SCH (19:36)
[2019-12-29] MEDS: IBUPROFEN 600 MG PO PRN ×3 (03:53→19:47)
[2019-12-29] MEDS: Furosemide 20 MG Tab PO SCH ×2 (08:17→17:09)
[2019-12-29] MEDS: Citalopram 20 MG Tab PO SCH (08:18)
[2019-12-29] MEDS: Potassium Chloride 20 MEQ Tab.ER PO SCH ×4 (08:18→19:46)
[2019-12-29] MEDS: Fludrocortisone 0.1 MG Tab PO SCH ×2 (08:18→19:46)
[2019-12-29] MEDS: Albuterol/Ipratropium 3.0-0.5 MG/3 ML Neb Soln NEB SCH ×4 (08:19→19:45)
[2019-12-29] MEDS: Calcium Carbonate 750 MG Tab.Chew PO SCH (08:20)
[2019-12-29] MEDS: Niacin 500 MG Tab PO SCH ×2 (08:20→17:09)
[2019-12-29] MEDS: Cyanocobalamin (Vitamin B12) 1,000 MCG Tab PO SCH (08:21)
[2019-12-29] MEDS: Cholecalciferol (Vitamin D3) 25 MCG Tab PO SCH (08:22)
[2019-12-29] MEDS: Acetaminophen 325 MG Tab PO PRN (08:26)
--- NOTE | 2019-12-29 13:20 | PCM.SN ---
- Free Text/Narrative Note: Echocardiogram results/report from 12/28/19 shows no significant abnormalities with ejection fraction of 55-60 percent with no pericardial effusion seen with this evaluation. Official CT scan of the chest without contrast on 12/29/19 indicates a possible trace pericardial effusion, however. The CT scan was otherwise normal with exception of an incidental benign right-sided 1.2 cm hepatic cyst and bilateral basilar atelectasis with no evidence of coronary artery disease, CHF, pneumonia, etc.. Our swing bed nurses will notify patient of the above test results. Patient will also be more compliant with her incentive spirometry with her nebulizer treatments and when necessary. No further workup or repeat x-rays for the time being. Further follow-up depending on her clinical course..
[2019-12-29] MEDS: BUPROPION XL 300MG PO SCH (19:46)
[2019-12-29] MEDS: Levothyroxine Sodium 137 MCG TABLET PO SCH (19:46)
[2019-12-29] MEDS: Simvastatin 10 MG Tab PO SCH (19:47)
[2019-12-30] MEDS: Albuterol/Ipratropium 3.0-0.5 MG/3 ML Neb Soln NEB SCH ×4 (07:07→19:48)
[2019-12-30] MEDS: Citalopram 20 MG Tab PO SCH (08:00)
[2019-12-30] MEDS: Fludrocortisone 0.1 MG Tab PO SCH ×2 (08:00→19:47)
[2019-12-30] MEDS: Potassium Chloride 20 MEQ Tab.ER PO SCH ×4 (08:01→19:46)
[2019-12-30] MEDS: Furosemide 20 MG Tab PO SCH ×2 (08:01→17:54)
[2019-12-30] MEDS: Calcium Carbonate 750 MG Tab.Chew PO SCH (08:02)
[2019-12-30] MEDS: Niacin 500 MG Tab PO SCH ×2 (08:02→17:54)
[2019-12-30] MEDS: Cholecalciferol (Vitamin D3) 25 MCG Tab PO SCH (08:04)
[2019-12-30] MEDS: Cyanocobalamin (Vitamin B12) 1,000 MCG Tab PO SCH (08:04)
[2019-12-30] MEDS: Levothyroxine Sodium 137 MCG TABLET PO SCH (19:47)
[2019-12-30] MEDS: BUPROPION XL 300MG PO SCH (19:47)
[2019-12-30] MEDS: Simvastatin 10 MG Tab PO SCH (19:48)
[2019-12-30] MEDS: IBUPROFEN 600 MG PO PRN (19:48)
[2019-12-31] MEDS: Potassium Chloride 20 MEQ Tab.ER PO SCH ×4 (08:05→19:50)
[2019-12-31] MEDS: Fludrocortisone 0.1 MG Tab PO SCH ×2 (08:05→19:50)
[2019-12-31] MEDS: Citalopram 20 MG Tab PO SCH (08:06)
[2019-12-31] MEDS: Furosemide 20 MG Tab PO SCH ×2 (08:06→17:46)
[2019-12-31] MEDS: Niacin 500 MG Tab PO SCH ×2 (08:06→17:46)
[2019-12-31] MEDS: Albuterol/Ipratropium 3.0-0.5 MG/3 ML Neb Soln NEB SCH ×4 (08:06→19:49)
[2019-12-31] MEDS: Cholecalciferol (Vitamin D3) 25 MCG Tab PO SCH (08:07)
[2019-12-31] MEDS: Calcium Carbonate 750 MG Tab.Chew PO SCH (08:07)
[2019-12-31] MEDS: Cyanocobalamin (Vitamin B12) 1,000 MCG Tab PO SCH (08:07)
[2019-12-31] MEDS: IBUPROFEN 600 MG PO PRN (17:46)
[2019-12-31] MEDS: BUPROPION XL 300MG PO SCH (19:51)
[2019-12-31] MEDS: Menthol/Methyl Salicylate 85 GM Tube TOP PRN (19:51)
[2019-12-31] MEDS: Levothyroxine Sodium 137 MCG TABLET PO SCH (19:51)
[2019-12-31] MEDS: Simvastatin 10 MG Tab PO SCH (19:51)
[2020-01-01] MEDS: Albuterol/Ipratropium 3.0-0.5 MG/3 ML Neb Soln NEB SCH ×4 (07:11→19:50)
[2020-01-01] MEDS: Citalopram 20 MG Tab PO SCH (07:12)
[2020-01-01] MEDS: Potassium Chloride 20 MEQ Tab.ER PO SCH ×4 (07:12→19:50)
[2020-01-01] MEDS: Fludrocortisone 0.1 MG Tab PO SCH ×2 (07:12→19:50)
[2020-01-01] MEDS: Furosemide 20 MG Tab PO SCH ×2 (07:12→17:08)
[2020-01-01] MEDS: Niacin 500 MG Tab PO SCH ×2 (07:13→17:09)
[2020-01-01] MEDS: Calcium Carbonate 750 MG Tab.Chew PO SCH (07:13)
[2020-01-01] MEDS: Cyanocobalamin (Vitamin B12) 1,000 MCG Tab PO SCH (07:13)
[2020-01-01] MEDS: Cholecalciferol (Vitamin D3) 25 MCG Tab PO SCH (07:14)
[2020-01-01] MEDS: IBUPROFEN 600 MG PO PRN ×2 (07:52→19:52)
[2020-01-01] MEDS: Acetaminophen 325 MG Tab PO PRN (11:16)
[2020-01-01] MEDS: BUPROPION XL 300MG PO SCH (19:51)
[2020-01-01] MEDS: Levothyroxine Sodium 137 MCG TABLET PO SCH (19:51)
[2020-01-01] MEDS: Simvastatin 10 MG Tab PO SCH (19:51)
[2020-01-01] MEDS: Menthol/Methyl Salicylate 85 GM Tube TOP PRN (19:52)
[2020-01-02] MEDS: Citalopram 20 MG Tab PO SCH (07:57)
[2020-01-02] MEDS: Fludrocortisone 0.1 MG Tab PO SCH ×2 (07:58→19:21)
[2020-01-02] MEDS: Furosemide 20 MG Tab PO SCH ×2 (07:58→17:47)
[2020-01-02] MEDS: Potassium Chloride 20 MEQ Tab.ER PO SCH ×4 (07:58→19:21)
[2020-01-02] MEDS: Albuterol/Ipratropium 3.0-0.5 MG/3 ML Neb Soln NEB SCH ×4 (07:59→19:20)
[2020-01-02] MEDS: Niacin 500 MG Tab PO SCH ×2 (07:59→17:47)
[2020-01-02] MEDS: Calcium Carbonate 750 MG Tab.Chew PO SCH (08:00)
[2020-01-02] MEDS: Cyanocobalamin (Vitamin B12) 1,000 MCG Tab PO SCH (08:01)
[2020-01-02] MEDS: Cholecalciferol (Vitamin D3) 25 MCG Tab PO SCH (08:01)
[2020-01-02] MEDS: IBUPROFEN 600 MG PO PRN ×2 (08:02→17:48)
[2020-01-02] MEDS: Levothyroxine Sodium 137 MCG TABLET PO SCH (19:21)
[2020-01-02] MEDS: BUPROPION XL 300MG PO SCH (19:22)
[2020-01-02] MEDS: Acetaminophen 325 MG Tab PO PRN (19:22)
[2020-01-02] MEDS: Simvastatin 10 MG Tab PO SCH (19:22)
[2020-01-02] MEDS: Menthol/Methyl Salicylate 85 GM Tube TOP PRN (19:24)
[2020-01-02] MEDS: Aluminum Hydroxide/Magnesium Hydroxide/Simethicone Susp 30 ML Cup PO PRN (19:30)
[2020-01-03] MEDS: Citalopram 20 MG Tab PO SCH (08:12)
[2020-01-03] MEDS: Potassium Chloride 20 MEQ Tab.ER PO SCH ×4 (08:12→20:14)
[2020-01-03] MEDS: Fludrocortisone 0.1 MG Tab PO SCH ×2 (08:12→20:14)
[2020-01-03] MEDS: Calcium Carbonate 750 MG Tab.Chew PO SCH (08:13)
[2020-01-03] MEDS: Niacin 500 MG Tab PO SCH ×2 (08:13→18:22)
[2020-01-03] MEDS: Furosemide 20 MG Tab PO SCH ×2 (08:13→18:22)
[2020-01-03] MEDS: Cyanocobalamin (Vitamin B12) 1,000 MCG Tab PO SCH (08:14)
[2020-01-03] MEDS: Cholecalciferol (Vitamin D3) 25 MCG Tab PO SCH (08:15)
[2020-01-03] MEDS: Albuterol/Ipratropium 3.0-0.5 MG/3 ML Neb Soln NEB SCH ×4 (08:16→20:04)
[2020-01-03] MEDS: IBUPROFEN 600 MG PO PRN (08:57)
[2020-01-03] MEDS: Levothyroxine Sodium 137 MCG TABLET PO SCH (20:15)
[2020-01-03] MEDS: BUPROPION XL 300MG PO SCH (20:15)
[2020-01-03] MEDS: Simvastatin 10 MG Tab PO SCH (20:16)
[2020-01-04] MEDS: Potassium Chloride 20 MEQ Tab.ER PO SCH ×5 (07:53→19:46)
[2020-01-04] MEDS: Citalopram 20 MG Tab PO SCH (07:53)
[2020-01-04] MEDS: Fludrocortisone 0.1 MG Tab PO SCH ×2 (07:53→19:46)
[2020-01-04] MEDS: Furosemide 20 MG Tab PO SCH ×2 (07:53→17:40)
[2020-01-04] MEDS: Albuterol/Ipratropium 3.0-0.5 MG/3 ML Neb Soln NEB SCH ×5 (07:55→19:45)
[2020-01-04] MEDS: Calcium Carbonate 750 MG Tab.Chew PO SCH (07:55)
[2020-01-04] MEDS: Niacin 500 MG Tab PO SCH ×2 (07:55→17:40)
[2020-01-04] MEDS: Cholecalciferol (Vitamin D3) 25 MCG Tab PO SCH (07:56)
[2020-01-04] MEDS: Cyanocobalamin (Vitamin B12) 1,000 MCG Tab PO SCH (07:56)
[2020-01-04] MEDS: IBUPROFEN 600 MG PO PRN ×2 (07:59→23:09)
[2020-01-04] MEDS: BUPROPION XL 300MG PO SCH (19:47)
[2020-01-04] MEDS: Levothyroxine Sodium 137 MCG TABLET PO SCH (19:47)
[2020-01-04] MEDS: Simvastatin 10 MG Tab PO SCH (19:48)
[2020-01-05] MEDS: Furosemide 20 MG Tab PO SCH ×2 (07:59→17:43)
[2020-01-05] MEDS: Albuterol/Ipratropium 3.0-0.5 MG/3 ML Neb Soln NEB SCH ×4 (07:59→19:56)
[2020-01-05] MEDS: Potassium Chloride 20 MEQ Tab.ER PO SCH ×4 (08:00→19:57)
[2020-01-05] MEDS: Citalopram 20 MG Tab PO SCH (08:00)
[2020-01-05] MEDS: Fludrocortisone 0.1 MG Tab PO SCH ×2 (08:00→19:57)
[2020-01-05] MEDS: Cyanocobalamin (Vitamin B12) 1,000 MCG Tab PO SCH (08:02)
[2020-01-05] MEDS: Cholecalciferol (Vitamin D3) 25 MCG Tab PO SCH (08:02)
[2020-01-05] MEDS: Niacin 500 MG Tab PO SCH ×2 (08:02→17:44)
[2020-01-05] MEDS: Calcium Carbonate 750 MG Tab.Chew PO SCH (08:02)
[2020-01-05] MEDS: IBUPROFEN 600 MG PO PRN (17:52)
[2020-01-05] MEDS: Levothyroxine Sodium 137 MCG TABLET PO SCH (19:58)
[2020-01-05] MEDS: Acetaminophen 325 MG Tab PO PRN (19:58)
[2020-01-05] MEDS: BUPROPION XL 300MG PO SCH (19:58)
[2020-01-05] MEDS: Simvastatin 10 MG Tab PO SCH (19:58)
[2020-01-05] MEDS: Aluminum Hydroxide/Magnesium Hydroxide/Simethicone Susp 30 ML Cup PO PRN (19:59)
[2020-01-05] MEDS: Menthol/Methyl Salicylate 85 GM Tube TOP PRN (19:59)
[2020-01-06] MEDS: Potassium Chloride 20 MEQ Tab.ER PO SCH ×4 (08:22→19:45)
[2020-01-06] MEDS: Fludrocortisone 0.1 MG Tab PO SCH ×2 (08:22→19:45)
[2020-01-06] MEDS: Citalopram 20 MG Tab PO SCH (08:22)
[2020-01-06] MEDS: Niacin 500 MG Tab PO SCH ×2 (08:23→17:12)
[2020-01-06] MEDS: Furosemide 20 MG Tab PO SCH ×2 (08:23→17:11)
[2020-01-06] MEDS: Calcium Carbonate 750 MG Tab.Chew PO SCH (08:24)
[2020-01-06] MEDS: Cholecalciferol (Vitamin D3) 25 MCG Tab PO SCH (08:25)
[2020-01-06] MEDS: Cyanocobalamin (Vitamin B12) 1,000 MCG Tab PO SCH (08:26)
[2020-01-06] MEDS: Albuterol/Ipratropium 3.0-0.5 MG/3 ML Neb Soln NEB SCH ×4 (08:26→19:44)
[2020-01-06] MEDS: BUPROPION XL 300MG PO SCH (19:45)
[2020-01-06] MEDS: Levothyroxine Sodium 137 MCG TABLET PO SCH (19:45)
[2020-01-06] MEDS: Simvastatin 10 MG Tab PO SCH (19:45)
[2020-01-06] MEDS: Menthol/Methyl Salicylate 85 GM Tube TOP PRN (19:46)
[2020-01-06] MEDS: Aluminum Hydroxide/Magnesium Hydroxide/Simethicone Susp 30 ML Cup PO PRN (19:46)
[2020-01-06] MEDS: IBUPROFEN 600 MG PO PRN (19:47)
[2020-01-07] MEDS: Fludrocortisone 0.1 MG Tab PO SCH ×2 (08:11→19:16)
[2020-01-07] MEDS: Citalopram 20 MG Tab PO SCH (08:12)
[2020-01-07] MEDS: Potassium Chloride 20 MEQ Tab.ER PO SCH ×4 (08:12→19:17)
[2020-01-07] MEDS: Furosemide 20 MG Tab PO SCH ×2 (08:12→17:50)
[2020-01-07] MEDS: Niacin 500 MG Tab PO SCH ×2 (08:13→17:50)
[2020-01-07] MEDS: Calcium Carbonate 750 MG Tab.Chew PO SCH (08:13)
[2020-01-07] MEDS: Cyanocobalamin (Vitamin B12) 1,000 MCG Tab PO SCH (08:14)
[2020-01-07] MEDS: Cholecalciferol (Vitamin D3) 25 MCG Tab PO SCH (08:14)
[2020-01-07] MEDS: IBUPROFEN 600 MG PO PRN ×2 (08:15→19:19)
[2020-01-07] MEDS: Albuterol/Ipratropium 3.0-0.5 MG/3 ML Neb Soln NEB SCH ×4 (08:16→19:16)
[2020-01-07] MEDS: Levothyroxine Sodium 137 MCG TABLET PO SCH (19:17)
[2020-01-07] MEDS: BUPROPION XL 300MG PO SCH (19:18)
[2020-01-07] MEDS: Simvastatin 10 MG Tab PO SCH (19:18)
[2020-01-07] MEDS: Aluminum Hydroxide/Magnesium Hydroxide/Simethicone Susp 30 ML Cup PO PRN (19:20)
[2020-01-08] MEDS: IBUPROFEN 600 MG PO PRN ×2 (02:02→08:14)
[2020-01-08] MEDS: Albuterol/Ipratropium 3.0-0.5 MG/3 ML Neb Soln NEB SCH ×4 (08:10→19:22)
[2020-01-08] MEDS: Citalopram 20 MG Tab PO SCH (08:11)
[2020-01-08] MEDS: Potassium Chloride 20 MEQ Tab.ER PO SCH ×4 (08:11→19:21)
[2020-01-08] MEDS: Fludrocortisone 0.1 MG Tab PO SCH ×2 (08:11→19:21)
[2020-01-08] MEDS: Furosemide 20 MG Tab PO SCH ×2 (08:11→17:31)
[2020-01-08] MEDS: Niacin 500 MG Tab PO SCH ×2 (08:12→17:32)
[2020-01-08] MEDS: Calcium Carbonate 750 MG Tab.Chew PO SCH (08:12)
[2020-01-08] MEDS: Cyanocobalamin (Vitamin B12) 1,000 MCG Tab PO SCH (08:13)
[2020-01-08] MEDS: Cholecalciferol (Vitamin D3) 25 MCG Tab PO SCH (08:13)
[2020-01-08] MEDS: Acetaminophen 325 MG Tab PO PRN (16:17)
[2020-01-08] MEDS: BUPROPION XL 300MG PO SCH (19:21)
[2020-01-08] MEDS: Simvastatin 10 MG Tab PO SCH (19:21)
[2020-01-08] MEDS: Levothyroxine Sodium 137 MCG TABLET PO SCH (19:21)
[2020-01-09] MEDS: Fludrocortisone 0.1 MG Tab PO SCH ×2 (08:07→19:18)
[2020-01-09] MEDS: Albuterol/Ipratropium 3.0-0.5 MG/3 ML Neb Soln NEB SCH ×4 (08:08→19:15)
[2020-01-09] MEDS: Citalopram 20 MG Tab PO SCH (08:08)
[2020-01-09] MEDS: Potassium Chloride 20 MEQ Tab.ER PO SCH ×4 (08:08→19:18)
[2020-01-09] MEDS: Furosemide 20 MG Tab PO SCH ×2 (08:08→17:38)
[2020-01-09] MEDS: Calcium Carbonate 750 MG Tab.Chew PO SCH (08:09)
[2020-01-09] MEDS: Niacin 500 MG Tab PO SCH ×2 (08:09→17:38)
[2020-01-09] MEDS: IBUPROFEN 600 MG PO PRN ×2 (08:10→17:37)
[2020-01-09] MEDS: Cyanocobalamin (Vitamin B12) 1,000 MCG Tab PO SCH (08:10)
[2020-01-09] MEDS: Cholecalciferol (Vitamin D3) 25 MCG Tab PO SCH (08:10)
[2020-01-09] MEDS: Aluminum Hydroxide/Magnesium Hydroxide/Simethicone Susp 30 ML Cup PO PRN (09:20)
[2020-01-09] MEDS: Acetaminophen 325 MG Tab PO PRN (16:06)
[2020-01-09] MEDS: Levothyroxine Sodium 137 MCG TABLET PO SCH (19:19)
[2020-01-09] MEDS: Simvastatin 10 MG Tab PO SCH (19:19)
[2020-01-09] MEDS: BUPROPION XL 300MG PO SCH (19:19)
[2020-01-10] MEDS: Fludrocortisone 0.1 MG Tab PO SCH ×2 (08:30→19:34)
[2020-01-10] MEDS: Potassium Chloride 20 MEQ Tab.ER PO SCH ×4 (08:31→19:34)
[2020-01-10] MEDS: Furosemide 20 MG Tab PO SCH ×2 (08:31→17:47)
[2020-01-10] MEDS: Citalopram 20 MG Tab PO SCH (08:31)
[2020-01-10] MEDS: Niacin 500 MG Tab PO SCH ×2 (08:32→17:48)
[2020-01-10] MEDS: Albuterol/Ipratropium 3.0-0.5 MG/3 ML Neb Soln NEB SCH ×4 (08:32→19:33)
[2020-01-10] MEDS: Calcium Carbonate 750 MG Tab.Chew PO SCH (08:32)
[2020-01-10] MEDS: Cholecalciferol (Vitamin D3) 25 MCG Tab PO SCH (08:33)
[2020-01-10] MEDS: IBUPROFEN 600 MG PO PRN ×2 (08:33→19:36)
[2020-01-10] MEDS: Cyanocobalamin (Vitamin B12) 1,000 MCG Tab PO SCH (08:33)
[2020-01-10] MEDS: Acetaminophen 325 MG Tab PO PRN (11:53)
[2020-01-10] MEDS: Levothyroxine Sodium 137 MCG TABLET PO SCH (19:34)
[2020-01-10] MEDS: BUPROPION XL 300MG PO SCH (19:35)
[2020-01-10] MEDS: Simvastatin 10 MG Tab PO SCH (19:35)
[2020-01-10] MEDS: Menthol/Methyl Salicylate 85 GM Tube TOP PRN (19:35)
[2020-01-11] MEDS: Furosemide 20 MG Tab PO SCH ×2 (07:51→17:29)
[2020-01-11] MEDS: Albuterol/Ipratropium 3.0-0.5 MG/3 ML Neb Soln NEB SCH ×4 (07:52→19:37)
[2020-01-11] MEDS: Fludrocortisone 0.1 MG Tab PO SCH ×2 (07:52→19:39)
[2020-01-11] MEDS: Potassium Chloride 20 MEQ Tab.ER PO SCH ×4 (07:52→19:39)
[2020-01-11] MEDS: Citalopram 20 MG Tab PO SCH (07:52)
[2020-01-11] MEDS: Niacin 500 MG Tab PO SCH ×2 (07:53→17:29)
[2020-01-11] MEDS: Calcium Carbonate 750 MG Tab.Chew PO SCH (07:53)
[2020-01-11] MEDS: Cholecalciferol (Vitamin D3) 25 MCG Tab PO SCH (07:53)
[2020-01-11] MEDS: Cyanocobalamin (Vitamin B12) 1,000 MCG Tab PO SCH (07:54)
[2020-01-11] MEDS: Acetaminophen 325 MG Tab PO PRN (07:55)
[2020-01-11] MEDS: Albuterol/Ipratropium 3.0-0.5 MG/3 ML Neb Soln NEB PRN (17:28)
[2020-01-11] MEDS: BUPROPION XL 300MG PO SCH (19:40)
[2020-01-11] MEDS: Simvastatin 10 MG Tab PO SCH (19:40)
[2020-01-11] MEDS: Levothyroxine Sodium 137 MCG TABLET PO SCH (19:40)
[2020-01-11] MEDS: Menthol/Methyl Salicylate 85 GM Tube TOP PRN (19:41)
[2020-01-11] MEDS: Aluminum Hydroxide/Magnesium Hydroxide/Simethicone Susp 30 ML Cup PO PRN (19:41)
[2020-01-11] MEDS: IBUPROFEN 600 MG PO PRN (19:42)
[2020-01-12] MEDS: Acetaminophen 325 MG Tab PO PRN ×2 (00:56→19:30)
[2020-01-12] MEDS: Furosemide 20 MG Tab PO SCH ×2 (08:15→17:43)
[2020-01-12] MEDS: Potassium Chloride 20 MEQ Tab.ER PO SCH ×4 (08:16→19:28)
[2020-01-12] MEDS: Citalopram 20 MG Tab PO SCH (08:16)
[2020-01-12] MEDS: Fludrocortisone 0.1 MG Tab PO SCH ×2 (08:16→19:27)
[2020-01-12] MEDS: Albuterol/Ipratropium 3.0-0.5 MG/3 ML Neb Soln NEB SCH ×4 (08:18→19:26)
[2020-01-12] MEDS: Niacin 500 MG Tab PO SCH ×2 (08:18→17:44)
[2020-01-12] MEDS: Calcium Carbonate 750 MG Tab.Chew PO SCH (08:19)
[2020-01-12] MEDS: Cholecalciferol (Vitamin D3) 25 MCG Tab PO SCH (08:20)
[2020-01-12] MEDS: Cyanocobalamin (Vitamin B12) 1,000 MCG Tab PO SCH (08:20)
[2020-01-12] MEDS: IBUPROFEN 600 MG PO PRN (08:54)
[2020-01-12] MEDS: Levothyroxine Sodium 137 MCG TABLET PO SCH (19:27)
[2020-01-12] MEDS: BUPROPION XL 300MG PO SCH (19:27)
[2020-01-12] MEDS: Simvastatin 10 MG Tab PO SCH (19:28)
[2020-01-13] MEDS: Furosemide 20 MG Tab PO SCH ×2 (08:20→19:13)
[2020-01-13] MEDS: Potassium Chloride 20 MEQ Tab.ER PO SCH ×4 (08:20→19:15)
[2020-01-13] MEDS: Fludrocortisone 0.1 MG Tab PO SCH ×2 (08:20→19:15)
[2020-01-13] MEDS: Albuterol/Ipratropium 3.0-0.5 MG/3 ML Neb Soln NEB SCH ×4 (08:20→19:14)
[2020-01-13] MEDS: Citalopram 20 MG Tab PO SCH (08:20)
[2020-01-13] MEDS: Niacin 500 MG Tab PO SCH ×2 (08:21→17:41)
[2020-01-13] MEDS: Calcium Carbonate 750 MG Tab.Chew PO SCH (08:21)
[2020-01-13] MEDS: Cyanocobalamin (Vitamin B12) 1,000 MCG Tab PO SCH (08:21)
[2020-01-13] MEDS: IBUPROFEN 600 MG PO PRN ×2 (08:22→17:40)
[2020-01-13] MEDS: Cholecalciferol (Vitamin D3) 25 MCG Tab PO SCH (08:22)
[2020-01-13] MEDS: Acetaminophen 325 MG Tab PO PRN (11:06)
--- NOTE | 2020-01-13 15:02 | PCM.SN ---
- Free Text/Narrative Note: Note per nurses history the patient is having some difficulty with her incentive spirometry during the last week. No apparent chest pain or anginal type symptoms. Note recent CT scan of the chest and echocardiogram as per previous simple provider note. Chest x-ray, PA and lateral, today indicates a mild to moderate left-sided pleural effusion with mildly increased CHF. IM Lasix 40 mg to be given as an one extra dose today. Continue close observation by nursing staff. Repeat chest x-ray on 01/26.
[2020-01-13] MEDS: BUPROPION XL 300MG PO SCH (19:15)
[2020-01-13] MEDS: Levothyroxine Sodium 137 MCG TABLET PO SCH (19:15)
[2020-01-13] MEDS: Simvastatin 10 MG Tab PO SCH (19:16)
[2020-01-14] MEDS: Potassium Chloride 20 MEQ Tab.ER PO SCH ×4 (08:08→19:34)
[2020-01-14] MEDS: Furosemide 20 MG Tab PO SCH ×2 (08:08→17:47)
[2020-01-14] MEDS: Niacin 500 MG Tab PO SCH ×2 (08:09→17:47)
[2020-01-14] MEDS: Albuterol/Ipratropium 3.0-0.5 MG/3 ML Neb Soln NEB SCH ×4 (08:09→19:34)
[2020-01-14] MEDS: Citalopram 20 MG Tab PO SCH (08:09)
[2020-01-14] MEDS: Fludrocortisone 0.1 MG Tab PO SCH ×2 (08:09→19:34)
[2020-01-14] MEDS: Calcium Carbonate 750 MG Tab.Chew PO SCH (08:10)
[2020-01-14] MEDS: Cyanocobalamin (Vitamin B12) 1,000 MCG Tab PO SCH (08:11)
[2020-01-14] MEDS: Cholecalciferol (Vitamin D3) 25 MCG Tab PO SCH (08:11)
[2020-01-14] MEDS: IBUPROFEN 600 MG PO PRN ×2 (08:11→16:02)
[2020-01-14] MEDS: Acetaminophen 325 MG Tab PO PRN ×2 (11:40→17:47)
[2020-01-14] MEDS: Levothyroxine Sodium 137 MCG TABLET PO SCH (19:34)
[2020-01-14] MEDS: BUPROPION XL 300MG PO SCH (19:34)
[2020-01-14] MEDS: Simvastatin 10 MG Tab PO SCH (19:34)
[2020-01-15] MEDS: Albuterol/Ipratropium 3.0-0.5 MG/3 ML Neb Soln NEB SCH ×4 (07:17→19:52)
[2020-01-15] MEDS: Citalopram 20 MG Tab PO SCH (08:17)
[2020-01-15] MEDS: Fludrocortisone 0.1 MG Tab PO SCH ×2 (08:17→19:52)
[2020-01-15] MEDS: Potassium Chloride 20 MEQ Tab.ER PO SCH ×4 (08:17→19:52)
[2020-01-15] MEDS: Furosemide 20 MG Tab PO SCH ×2 (08:18→17:47)
[2020-01-15] MEDS: Niacin 500 MG Tab PO SCH ×2 (08:18→17:48)
[2020-01-15] MEDS: Cyanocobalamin (Vitamin B12) 1,000 MCG Tab PO SCH (08:19)
[2020-01-15] MEDS: Calcium Carbonate 750 MG Tab.Chew PO SCH (08:19)
[2020-01-15] MEDS: Cholecalciferol (Vitamin D3) 25 MCG Tab PO SCH (08:20)
[2020-01-15] MEDS: Acetaminophen 325 MG Tab PO PRN (15:02)
[2020-01-15] MEDS: Simvastatin 10 MG Tab PO SCH (19:52)
[2020-01-15] MEDS: BUPROPION XL 300MG PO SCH (19:53)
[2020-01-15] MEDS: Levothyroxine Sodium 137 MCG TABLET PO SCH (19:53)
[2020-01-15] MEDS: IBUPROFEN 600 MG PO PRN (19:53)
[2020-01-16] MEDS: Citalopram 20 MG Tab PO SCH (08:18)
[2020-01-16] MEDS: Albuterol/Ipratropium 3.0-0.5 MG/3 ML Neb Soln NEB SCH ×4 (08:18→20:08)
[2020-01-16] MEDS: Fludrocortisone 0.1 MG Tab PO SCH ×2 (08:18→20:08)
[2020-01-16] MEDS: Furosemide 20 MG Tab PO SCH ×2 (08:19→17:24)
[2020-01-16] MEDS: Potassium Chloride 20 MEQ Tab.ER PO SCH ×4 (08:19→20:09)
[2020-01-16] MEDS: Niacin 500 MG Tab PO SCH ×2 (08:20→17:25)
[2020-01-16] MEDS: Calcium Carbonate 750 MG Tab.Chew PO SCH (08:20)
[2020-01-16] MEDS: Cholecalciferol (Vitamin D3) 25 MCG Tab PO SCH (08:22)
[2020-01-16] MEDS: Cyanocobalamin (Vitamin B12) 1,000 MCG Tab PO SCH (08:22)
[2020-01-16] MEDS: IBUPROFEN 600 MG PO PRN ×2 (08:27→20:09)
[2020-01-16] MEDS: Simvastatin 10 MG Tab PO SCH (20:08)
[2020-01-16] MEDS: Levothyroxine Sodium 137 MCG TABLET PO SCH (20:08)
[2020-01-16] MEDS: BUPROPION XL 300MG PO SCH (20:09)
[2020-01-17] MEDS: Citalopram 20 MG Tab PO SCH (08:06)
[2020-01-17] MEDS: Fludrocortisone 0.1 MG Tab PO SCH ×2 (08:06→19:52)
[2020-01-17] MEDS: Potassium Chloride 20 MEQ Tab.ER PO SCH ×4 (08:06→19:53)
[2020-01-17] MEDS: Furosemide 20 MG Tab PO SCH ×2 (08:07→17:03)
[2020-01-17] MEDS: Albuterol/Ipratropium 3.0-0.5 MG/3 ML Neb Soln NEB SCH ×4 (08:07→19:50)
[2020-01-17] MEDS: Calcium Carbonate 750 MG Tab.Chew PO SCH (08:08)
[2020-01-17] MEDS: Niacin 500 MG Tab PO SCH ×2 (08:08→17:03)
[2020-01-17] MEDS: IBUPROFEN 600 MG PO PRN ×2 (08:09→17:04)
[2020-01-17] MEDS: Cyanocobalamin (Vitamin B12) 1,000 MCG Tab PO SCH (08:09)
[2020-01-17] MEDS: Cholecalciferol (Vitamin D3) 25 MCG Tab PO SCH (08:09)
[2020-01-17] MEDS: Acetaminophen 325 MG Tab PO PRN (11:10)
[2020-01-17] MEDS: Levothyroxine Sodium 137 MCG TABLET PO SCH (19:52)
[2020-01-17] MEDS: Simvastatin 10 MG Tab PO SCH (19:53)
[2020-01-17] MEDS: BUPROPION XL 300MG PO SCH (19:53)
[2020-01-18] MEDS: Citalopram 20 MG Tab PO SCH (08:04)
[2020-01-18] MEDS: Albuterol/Ipratropium 3.0-0.5 MG/3 ML Neb Soln NEB SCH ×4 (08:04→19:36)
[2020-01-18] MEDS: Fludrocortisone 0.1 MG Tab PO SCH ×2 (08:04→19:30)
[2020-01-18] MEDS: Calcium Carbonate 750 MG Tab.Chew PO SCH (08:05)
[2020-01-18] MEDS: Potassium Chloride 20 MEQ Tab.ER PO SCH ×4 (08:05→19:31)
[2020-01-18] MEDS: Niacin 500 MG Tab PO SCH ×2 (08:05→17:10)
[2020-01-18] MEDS: Furosemide 20 MG Tab PO SCH ×2 (08:05→17:10)
[2020-01-18] MEDS: Cholecalciferol (Vitamin D3) 25 MCG Tab PO SCH (08:06)
[2020-01-18] MEDS: Cyanocobalamin (Vitamin B12) 1,000 MCG Tab PO SCH (08:06)
[2020-01-18] MEDS: IBUPROFEN 600 MG PO PRN (08:06)
[2020-01-18] MEDS: Aluminum Hydroxide/Magnesium Hydroxide/Simethicone Susp 30 ML Cup PO PRN (09:46)
[2020-01-18] MEDS: Acetaminophen 325 MG Tab PO PRN (11:32)
[2020-01-18] MEDS: Levothyroxine Sodium 137 MCG TABLET PO SCH (19:30)
[2020-01-18] MEDS: BUPROPION XL 300MG PO SCH (19:31)
[2020-01-18] MEDS: Simvastatin 10 MG Tab PO SCH (19:31)
[2020-01-19] MEDS: Citalopram 20 MG Tab PO SCH (07:54)
[2020-01-19] MEDS: Potassium Chloride 20 MEQ Tab.ER PO SCH ×4 (07:54→19:18)
[2020-01-19] MEDS: Fludrocortisone 0.1 MG Tab PO SCH ×2 (07:54→19:17)
[2020-01-19] MEDS: Furosemide 20 MG Tab PO SCH ×2 (07:55→17:38)
[2020-01-19] MEDS: Albuterol/Ipratropium 3.0-0.5 MG/3 ML Neb Soln NEB SCH ×4 (07:55→19:16)
[2020-01-19] MEDS: Niacin 500 MG Tab PO SCH ×2 (07:56→17:39)
[2020-01-19] MEDS: Cyanocobalamin (Vitamin B12) 1,000 MCG Tab PO SCH (07:56)
[2020-01-19] MEDS: Calcium Carbonate 750 MG Tab.Chew PO SCH (07:56)
[2020-01-19] MEDS: Cholecalciferol (Vitamin D3) 25 MCG Tab PO SCH (07:57)
[2020-01-19] MEDS: IBUPROFEN 600 MG PO PRN ×2 (07:57→17:39)
[2020-01-19] MEDS: Acetaminophen 325 MG Tab PO PRN (09:54)
[2020-01-19] MEDS: Levothyroxine Sodium 137 MCG TABLET PO SCH (19:19)
[2020-01-19] MEDS: BUPROPION XL 300MG PO SCH (19:20)
[2020-01-19] MEDS: Simvastatin 10 MG Tab PO SCH (19:20)
[2020-01-20] MEDS: Furosemide 20 MG Tab PO SCH ×2 (07:59→17:33)
[2020-01-20] MEDS: Potassium Chloride 20 MEQ Tab.ER PO SCH ×4 (07:59→19:26)
[2020-01-20] MEDS: Citalopram 20 MG Tab PO SCH (07:59)
[2020-01-20] MEDS: Fludrocortisone 0.1 MG Tab PO SCH ×2 (07:59→19:26)
[2020-01-20] MEDS: Albuterol/Ipratropium 3.0-0.5 MG/3 ML Neb Soln NEB SCH ×4 (08:00→19:26)
[2020-01-20] MEDS: Niacin 500 MG Tab PO SCH ×2 (08:01→17:34)
[2020-01-20] MEDS: Cholecalciferol (Vitamin D3) 25 MCG Tab PO SCH (08:01)
[2020-01-20] MEDS: Calcium Carbonate 750 MG Tab.Chew PO SCH (08:02)
[2020-01-20] MEDS: Cyanocobalamin (Vitamin B12) 1,000 MCG Tab PO SCH (08:02)
[2020-01-20] MEDS: IBUPROFEN 600 MG PO PRN ×2 (11:14→17:34)
[2020-01-20] MEDS: BUPROPION XL 300MG PO SCH (19:27)
[2020-01-20] MEDS: Levothyroxine Sodium 137 MCG TABLET PO SCH (19:27)
[2020-01-20] MEDS: Simvastatin 10 MG Tab PO SCH (19:27)
[2020-01-20] MEDS: Acetaminophen 325 MG Tab PO PRN (19:28)
[2020-01-20] MEDS: Menthol/Methyl Salicylate 85 GM Tube TOP PRN (19:29)
[2020-01-21] MEDS: IBUPROFEN 600 MG PO PRN ×3 (03:05→17:33)
[2020-01-21] MEDS: guaiFENesin/Dextromethorphan 100-10 MG/5 ML Soln 10 ML Cup PO PRN ×2 (03:06→08:03)
[2020-01-21] MEDS: Furosemide 20 MG Tab PO SCH ×2 (07:58→17:32)
[2020-01-21] MEDS: Citalopram 20 MG Tab PO SCH (07:59)
[2020-01-21] MEDS: Fludrocortisone 0.1 MG Tab PO SCH ×2 (07:59→19:27)
[2020-01-21] MEDS: Potassium Chloride 20 MEQ Tab.ER PO SCH ×4 (07:59→19:27)
[2020-01-21] MEDS: Albuterol/Ipratropium 3.0-0.5 MG/3 ML Neb Soln NEB SCH ×4 (08:00→19:27)
[2020-01-21] MEDS: Niacin 500 MG Tab PO SCH ×2 (08:00→17:32)
[2020-01-21] MEDS: Cyanocobalamin (Vitamin B12) 1,000 MCG Tab PO SCH (08:01)
[2020-01-21] MEDS: Cholecalciferol (Vitamin D3) 25 MCG Tab PO SCH (08:01)
[2020-01-21] MEDS: Calcium Carbonate 750 MG Tab.Chew PO SCH (08:01)
[2020-01-21] MEDS: Acetaminophen 325 MG Tab PO PRN (11:25)
[2020-01-21] MEDS: BUPROPION XL 300MG PO SCH (19:27)
[2020-01-21] MEDS: Simvastatin 10 MG Tab PO SCH (19:27)
[2020-01-21] MEDS: Levothyroxine Sodium 137 MCG TABLET PO SCH (19:27)
--- NOTE | 2020-01-21 20:14 | PCM.SN ---
- Free Text/Narrative Note: Chest x-ray, PA and lateral, including additional radiological report reviewed. Symptoms and chest x-ray improved. The patient is still afebrile with no bronchitic type symptoms. No further adjustment of her therapy and continued close observation of her symptoms.
[2020-01-22] MEDS: Potassium Chloride 20 MEQ Tab.ER PO SCH ×4 (07:14→19:20)
[2020-01-22] MEDS: Citalopram 20 MG Tab PO SCH (07:14)
[2020-01-22] MEDS: Albuterol/Ipratropium 3.0-0.5 MG/3 ML Neb Soln NEB SCH ×4 (07:14→19:14)
[2020-01-22] MEDS: Fludrocortisone 0.1 MG Tab PO SCH ×2 (07:14→19:14)
[2020-01-22] MEDS: Furosemide 20 MG Tab PO SCH ×2 (07:15→17:09)
[2020-01-22] MEDS: Calcium Carbonate 750 MG Tab.Chew PO SCH (07:15)
[2020-01-22] MEDS: Niacin 500 MG Tab PO SCH ×2 (07:15→17:09)
[2020-01-22] MEDS: Cyanocobalamin (Vitamin B12) 1,000 MCG Tab PO SCH (07:16)
[2020-01-22] MEDS: IBUPROFEN 600 MG PO PRN (07:16)
[2020-01-22] MEDS: Cholecalciferol (Vitamin D3) 25 MCG Tab PO SCH (07:16)
[2020-01-22] MEDS: Acetaminophen 325 MG Tab PO PRN (11:21)
[2020-01-22] MEDS: Simvastatin 10 MG Tab PO SCH (19:15)
[2020-01-22] MEDS: BUPROPION XL 300MG PO SCH (19:15)
[2020-01-22] MEDS: Levothyroxine Sodium 137 MCG TABLET PO SCH (19:15)
[2020-01-23] MEDS: Citalopram 20 MG Tab PO SCH (07:08)
[2020-01-23] MEDS: Albuterol/Ipratropium 3.0-0.5 MG/3 ML Neb Soln NEB SCH ×4 (07:08→19:22)
[2020-01-23] MEDS: Potassium Chloride 20 MEQ Tab.ER PO SCH ×4 (07:09→19:22)
[2020-01-23] MEDS: Fludrocortisone 0.1 MG Tab PO SCH ×2 (07:09→19:20)
[2020-01-23] MEDS: Niacin 500 MG Tab PO SCH ×2 (07:09→17:04)
[2020-01-23] MEDS: Furosemide 20 MG Tab PO SCH ×2 (07:09→17:04)
[2020-01-23] MEDS: Calcium Carbonate 750 MG Tab.Chew PO SCH (07:09)
[2020-01-23] MEDS: Cholecalciferol (Vitamin D3) 25 MCG Tab PO SCH (07:10)
[2020-01-23] MEDS: Cyanocobalamin (Vitamin B12) 1,000 MCG Tab PO SCH (07:10)
[2020-01-23] MEDS: IBUPROFEN 600 MG PO PRN ×2 (07:11→15:05)
[2020-01-23] MEDS: Acetaminophen 325 MG Tab PO PRN ×2 (11:07→19:22)
[2020-01-23] MEDS: BUPROPION XL 300MG PO SCH (19:21)
[2020-01-23] MEDS: Simvastatin 10 MG Tab PO SCH (19:21)
[2020-01-23] MEDS: Levothyroxine Sodium 137 MCG TABLET PO SCH (19:21)
[2020-01-24] MEDS: Fludrocortisone 0.1 MG Tab PO SCH ×2 (07:55→20:02)
[2020-01-24] MEDS: Potassium Chloride 20 MEQ Tab.ER PO SCH ×4 (07:55→20:02)
[2020-01-24] MEDS: Furosemide 20 MG Tab PO SCH ×2 (07:55→17:28)
[2020-01-24] MEDS: Citalopram 20 MG Tab PO SCH (07:55)
[2020-01-24] MEDS: Albuterol/Ipratropium 3.0-0.5 MG/3 ML Neb Soln NEB SCH ×4 (07:56→20:01)
[2020-01-24] MEDS: Calcium Carbonate 750 MG Tab.Chew PO SCH (07:57)
[2020-01-24] MEDS: Cholecalciferol (Vitamin D3) 25 MCG Tab PO SCH (07:57)
[2020-01-24] MEDS: Cyanocobalamin (Vitamin B12) 1,000 MCG Tab PO SCH (07:57)
[2020-01-24] MEDS: Niacin 500 MG Tab PO SCH ×2 (07:57→17:28)
[2020-01-24] MEDS: IBUPROFEN 600 MG PO PRN ×2 (07:58→17:28)
[2020-01-24] MEDS: Levothyroxine Sodium 137 MCG TABLET PO SCH (20:01)
[2020-01-24] MEDS: Simvastatin 10 MG Tab PO SCH (20:02)
[2020-01-24] MEDS: BUPROPION XL 300MG PO SCH (20:02)
[2020-01-24] MEDS: Acetaminophen 325 MG Tab PO PRN (20:03)
[2020-01-24] MEDS: Menthol/Methyl Salicylate 85 GM Tube TOP PRN (20:04)
[2020-01-25] MEDS: Acetaminophen 325 MG Tab PO PRN ×2 (04:47→11:05)
[2020-01-25] MEDS: Albuterol/Ipratropium 3.0-0.5 MG/3 ML Neb Soln NEB SCH ×4 (07:09→19:32)
[2020-01-25] MEDS: Citalopram 20 MG Tab PO SCH (07:10)
[2020-01-25] MEDS: Fludrocortisone 0.1 MG Tab PO SCH ×2 (07:10→19:33)
[2020-01-25] MEDS: Potassium Chloride 20 MEQ Tab.ER PO SCH ×4 (07:11→19:34)
[2020-01-25] MEDS: Furosemide 20 MG Tab PO SCH ×2 (07:11→17:08)
[2020-01-25] MEDS: Niacin 500 MG Tab PO SCH ×2 (07:11→17:08)
[2020-01-25] MEDS: Cyanocobalamin (Vitamin B12) 1,000 MCG Tab PO SCH (07:12)
[2020-01-25] MEDS: Calcium Carbonate 750 MG Tab.Chew PO SCH (07:12)
[2020-01-25] MEDS: IBUPROFEN 600 MG PO PRN ×2 (07:13→15:28)
[2020-01-25] MEDS: Cholecalciferol (Vitamin D3) 25 MCG Tab PO SCH (07:13)
[2020-01-25] MEDS: BUPROPION XL 300MG PO SCH (19:33)
[2020-01-25] MEDS: Simvastatin 10 MG Tab PO SCH (19:33)
[2020-01-25] MEDS: Levothyroxine Sodium 137 MCG TABLET PO SCH (19:33)
[2020-01-26] MEDS: IBUPROFEN 600 MG PO PRN (05:09)
[2020-01-26] MEDS: Albuterol/Ipratropium 3.0-0.5 MG/3 ML Neb Soln NEB SCH ×4 (07:30→19:31)
[2020-01-26] MEDS: Fludrocortisone 0.1 MG Tab PO SCH ×2 (07:30→19:32)
[2020-01-26] MEDS: Citalopram 20 MG Tab PO SCH (07:30)
[2020-01-26] MEDS: Niacin 500 MG Tab PO SCH ×2 (07:31→17:30)
[2020-01-26] MEDS: Furosemide 20 MG Tab PO SCH ×2 (07:31→17:29)
[2020-01-26] MEDS: Potassium Chloride 20 MEQ Tab.ER PO SCH ×4 (07:31→19:32)
[2020-01-26] MEDS: Calcium Carbonate 750 MG Tab.Chew PO SCH (07:32)
[2020-01-26] MEDS: Cyanocobalamin (Vitamin B12) 1,000 MCG Tab PO SCH (07:33)
[2020-01-26] MEDS: Cholecalciferol (Vitamin D3) 25 MCG Tab PO SCH (07:33)
[2020-01-26] MEDS: Levothyroxine Sodium 137 MCG TABLET PO SCH (19:32)
[2020-01-26] MEDS: Simvastatin 10 MG Tab PO SCH (19:33)
[2020-01-26] MEDS: BUPROPION XL 300MG PO SCH (19:33)
[2020-01-26] MEDS: Menthol/Methyl Salicylate 85 GM Tube TOP PRN (19:34)
[2020-01-26] MEDS: Acetaminophen 325 MG Tab PO PRN (19:35)
[2020-01-27] MEDS: Albuterol/Ipratropium 3.0-0.5 MG/3 ML Neb Soln NEB SCH ×4 (07:03→19:10)
[2020-01-27] MEDS: Calcium Carbonate 750 MG Tab.Chew PO SCH (07:04)
[2020-01-27] MEDS: Potassium Chloride 20 MEQ Tab.ER PO SCH ×4 (07:05→19:11)
[2020-01-27] MEDS: Citalopram 20 MG Tab PO SCH (07:05)
[2020-01-27] MEDS: Furosemide 20 MG Tab PO SCH ×2 (07:05→17:21)
[2020-01-27] MEDS: Fludrocortisone 0.1 MG Tab PO SCH ×2 (07:05→19:10)
[2020-01-27] MEDS: Cyanocobalamin (Vitamin B12) 1,000 MCG Tab PO SCH (07:06)
[2020-01-27] MEDS: Niacin 500 MG Tab PO SCH ×2 (07:06→17:22)
[2020-01-27] MEDS: Cholecalciferol (Vitamin D3) 25 MCG Tab PO SCH (07:06)
[2020-01-27] MEDS: IBUPROFEN 600 MG PO PRN ×2 (08:16→15:48)
[2020-01-27] MEDS: Acetaminophen 325 MG Tab PO PRN (11:09)
[2020-01-27] MEDS: Levothyroxine Sodium 137 MCG TABLET PO SCH (19:12)
[2020-01-27] MEDS: Simvastatin 10 MG Tab PO SCH (19:13)
[2020-01-27] MEDS: BUPROPION XL 300MG PO SCH (19:13)
[2020-01-28] MEDS: Potassium Chloride 20 MEQ Tab.ER PO SCH ×4 (07:54→19:53)
[2020-01-28] MEDS: Fludrocortisone 0.1 MG Tab PO SCH ×2 (07:54→19:53)
[2020-01-28] MEDS: Albuterol/Ipratropium 3.0-0.5 MG/3 ML Neb Soln NEB SCH ×4 (07:54→19:52)
[2020-01-28] MEDS: Citalopram 20 MG Tab PO SCH (07:54)
[2020-01-28] MEDS: IBUPROFEN 600 MG PO PRN ×2 (07:55→17:37)
[2020-01-28] MEDS: Furosemide 20 MG Tab PO SCH ×2 (07:55→17:37)
[2020-01-28] MEDS: Calcium Carbonate 750 MG Tab.Chew PO SCH (07:56)
[2020-01-28] MEDS: Niacin 500 MG Tab PO SCH ×2 (07:56→17:37)
[2020-01-28] MEDS: Cyanocobalamin (Vitamin B12) 1,000 MCG Tab PO SCH (07:56)
[2020-01-28] MEDS: Cholecalciferol (Vitamin D3) 25 MCG Tab PO SCH (07:57)
[2020-01-28] MEDS: Aluminum Hydroxide/Magnesium Hydroxide/Simethicone Susp 30 ML Cup PO PRN ×2 (08:44→19:54)
[2020-01-28] MEDS: Acetaminophen 325 MG Tab PO PRN ×2 (12:06→19:56)
[2020-01-28] MEDS: Levothyroxine Sodium 137 MCG TABLET PO SCH (19:53)
[2020-01-28] MEDS: Menthol/Methyl Salicylate 85 GM Tube TOP PRN (19:54)
[2020-01-28] MEDS: BUPROPION XL 300MG PO SCH (19:54)
[2020-01-28] MEDS: Simvastatin 10 MG Tab PO SCH (19:54)
[2020-01-29] MEDS: Furosemide 20 MG Tab PO SCH ×2 (07:59→17:23)
[2020-01-29] MEDS: Albuterol/Ipratropium 3.0-0.5 MG/3 ML Neb Soln NEB SCH ×4 (08:00→19:35)
[2020-01-29] MEDS: Citalopram 20 MG Tab PO SCH (08:00)
[2020-01-29] MEDS: Fludrocortisone 0.1 MG Tab PO SCH ×2 (08:00→19:37)
[2020-01-29] MEDS: Potassium Chloride 20 MEQ Tab.ER PO SCH ×4 (08:00→19:37)
[2020-01-29] MEDS: Niacin 500 MG Tab PO SCH ×2 (08:01→17:24)
[2020-01-29] MEDS: Calcium Carbonate 750 MG Tab.Chew PO SCH (08:01)
[2020-01-29] MEDS: Cyanocobalamin (Vitamin B12) 1,000 MCG Tab PO SCH (08:02)
[2020-01-29] MEDS: IBUPROFEN 600 MG PO PRN ×2 (08:02→19:40)
[2020-01-29] MEDS: Cholecalciferol (Vitamin D3) 25 MCG Tab PO SCH (08:02)
[2020-01-29] MEDS: Acetaminophen 325 MG Tab PO PRN (16:42)
[2020-01-29] MEDS: BUPROPION XL 300MG PO SCH (19:38)
[2020-01-29] MEDS: Levothyroxine Sodium 137 MCG TABLET PO SCH (19:38)
[2020-01-29] MEDS: Simvastatin 10 MG Tab PO SCH (19:38)
[2020-01-29] MEDS: Menthol/Methyl Salicylate 85 GM Tube TOP PRN (19:39)
[2020-01-30] MEDS: Fludrocortisone 0.1 MG Tab PO SCH ×2 (08:06→19:36)
[2020-01-30] MEDS: Citalopram 20 MG Tab PO SCH (08:06)
[2020-01-30] MEDS: Potassium Chloride 20 MEQ Tab.ER PO SCH ×4 (08:06→19:35)
[2020-01-30] MEDS: Albuterol/Ipratropium 3.0-0.5 MG/3 ML Neb Soln NEB SCH ×4 (08:07→19:34)
[2020-01-30] MEDS: Niacin 500 MG Tab PO SCH ×2 (08:07→17:39)
[2020-01-30] MEDS: Furosemide 20 MG Tab PO SCH ×2 (08:07→17:39)
[2020-01-30] MEDS: Cyanocobalamin (Vitamin B12) 1,000 MCG Tab PO SCH (08:08)
[2020-01-30] MEDS: Cholecalciferol (Vitamin D3) 25 MCG Tab PO SCH (08:08)
[2020-01-30] MEDS: Calcium Carbonate 750 MG Tab.Chew PO SCH (08:08)
[2020-01-30] MEDS: IBUPROFEN 600 MG PO PRN ×2 (08:09→17:40)
[2020-01-30] MEDS: Acetaminophen 325 MG Tab PO PRN (11:44)
[2020-01-30] MEDS: Levothyroxine Sodium 137 MCG TABLET PO SCH (19:36)
[2020-01-30] MEDS: BUPROPION XL 300MG PO SCH (19:37)
[2020-01-30] MEDS: Simvastatin 10 MG Tab PO SCH (19:37)
[2020-01-30] MEDS: Aluminum Hydroxide/Magnesium Hydroxide/Simethicone Susp 30 ML Cup PO PRN (19:37)
[2020-01-30] MEDS: Menthol/Methyl Salicylate 85 GM Tube TOP PRN (19:38)
[2020-01-31] MEDS: Acetaminophen 325 MG Tab PO PRN ×3 (04:12→19:41)
[2020-01-31] MEDS: Calcium Carbonate 750 MG Tab.Chew PO SCH (07:05)
[2020-01-31] MEDS: IBUPROFEN 600 MG PO PRN ×2 (07:05→15:44)
[2020-01-31] MEDS: Albuterol/Ipratropium 3.0-0.5 MG/3 ML Neb Soln NEB SCH ×4 (07:05→19:33)
[2020-01-31] MEDS: Furosemide 20 MG Tab PO SCH ×2 (07:06→17:01)
[2020-01-31] MEDS: Potassium Chloride 20 MEQ Tab.ER PO SCH ×4 (07:06→19:33)
[2020-01-31] MEDS: Citalopram 20 MG Tab PO SCH (07:06)
[2020-01-31] MEDS: Fludrocortisone 0.1 MG Tab PO SCH ×2 (07:06→19:33)
[2020-01-31] MEDS: Cyanocobalamin (Vitamin B12) 1,000 MCG Tab PO SCH (07:07)
[2020-01-31] MEDS: Cholecalciferol (Vitamin D3) 25 MCG Tab PO SCH (07:07)
[2020-01-31] MEDS: Niacin 500 MG Tab PO SCH ×2 (07:07→17:01)
[2020-01-31] MEDS: Aluminum Hydroxide/Magnesium Hydroxide/Simethicone Susp 30 ML Cup PO PRN (08:50)
[2020-01-31] MEDS: Levothyroxine Sodium 137 MCG TABLET PO SCH (19:34)
[2020-01-31] MEDS: Simvastatin 10 MG Tab PO SCH (19:34)
[2020-01-31] MEDS: BUPROPION XL 300MG PO SCH (19:34)
[2020-01-31] MEDS: Menthol/Methyl Salicylate 85 GM Tube TOP PRN (19:35)
[2020-02-01] MEDS: Albuterol/Ipratropium 3.0-0.5 MG/3 ML Neb Soln NEB SCH ×4 (07:06→19:35)
[2020-02-01] MEDS: Citalopram 20 MG Tab PO SCH (07:07)
[2020-02-01] MEDS: Fludrocortisone 0.1 MG Tab PO SCH ×2 (07:07→19:38)
[2020-02-01] MEDS: Potassium Chloride 20 MEQ Tab.ER PO SCH ×4 (07:07→19:38)
[2020-02-01] MEDS: Niacin 500 MG Tab PO SCH ×2 (07:08→17:03)
[2020-02-01] MEDS: Furosemide 20 MG Tab PO SCH ×2 (07:08→17:03)
[2020-02-01] MEDS: Calcium Carbonate 750 MG Tab.Chew PO SCH (07:08)
[2020-02-01] MEDS: Cyanocobalamin (Vitamin B12) 1,000 MCG Tab PO SCH (07:09)
[2020-02-01] MEDS: Cholecalciferol (Vitamin D3) 25 MCG Tab PO SCH (07:09)
[2020-02-01] MEDS: IBUPROFEN 600 MG PO PRN (08:01)
[2020-02-01] MEDS: Aluminum Hydroxide/Magnesium Hydroxide/Simethicone Susp 30 ML Cup PO PRN ×2 (08:02→19:40)
[2020-02-01] MEDS: Menthol/Methyl Salicylate 85 GM Tube TOP PRN (19:39)
[2020-02-01] MEDS: Levothyroxine Sodium 137 MCG TABLET PO SCH (19:39)
[2020-02-01] MEDS: Simvastatin 10 MG Tab PO SCH (19:39)
[2020-02-01] MEDS: BUPROPION XL 300MG PO SCH (19:39)
[2020-02-02] MEDS: Albuterol/Ipratropium 3.0-0.5 MG/3 ML Neb Soln NEB SCH ×4 (07:05→19:23)
[2020-02-02] MEDS: IBUPROFEN 600 MG PO PRN ×2 (07:05→15:26)
[2020-02-02] MEDS: Fludrocortisone 0.1 MG Tab PO SCH ×2 (07:06→19:23)
[2020-02-02] MEDS: Furosemide 20 MG Tab PO SCH ×2 (07:06→17:15)
[2020-02-02] MEDS: Potassium Chloride 20 MEQ Tab.ER PO SCH ×4 (07:06→19:23)
[2020-02-02] MEDS: Citalopram 20 MG Tab PO SCH (07:06)
[2020-02-02] MEDS: Niacin 500 MG Tab PO SCH ×2 (07:07→17:16)
[2020-02-02] MEDS: Calcium Carbonate 750 MG Tab.Chew PO SCH (07:07)
[2020-02-02] MEDS: Cyanocobalamin (Vitamin B12) 1,000 MCG Tab PO SCH (07:07)
[2020-02-02] MEDS: Cholecalciferol (Vitamin D3) 25 MCG Tab PO SCH (07:07)
[2020-02-02] MEDS: BUPROPION XL 300MG PO SCH (19:24)
[2020-02-02] MEDS: Simvastatin 10 MG Tab PO SCH (19:24)
[2020-02-02] MEDS: Levothyroxine Sodium 137 MCG TABLET PO SCH (19:24)
[2020-02-02] MEDS: Acetaminophen 325 MG Tab PO PRN (19:25)
[2020-02-02] MEDS: Menthol/Methyl Salicylate 85 GM Tube TOP PRN (19:25)
[2020-02-03] MEDS: Albuterol/Ipratropium 3.0-0.5 MG/3 ML Neb Soln NEB SCH ×4 (07:27→19:34)
[2020-02-03] MEDS: Citalopram 20 MG Tab PO SCH (07:28)
[2020-02-03] MEDS: Potassium Chloride 20 MEQ Tab.ER PO SCH ×4 (07:28→19:35)
[2020-02-03] MEDS: Furosemide 20 MG Tab PO SCH ×2 (07:28→17:52)
[2020-02-03] MEDS: Fludrocortisone 0.1 MG Tab PO SCH ×2 (07:28→19:34)
[2020-02-03] MEDS: Cyanocobalamin (Vitamin B12) 1,000 MCG Tab PO SCH (07:29)
[2020-02-03] MEDS: Niacin 500 MG Tab PO SCH ×2 (07:29→17:53)
[2020-02-03] MEDS: Calcium Carbonate 750 MG Tab.Chew PO SCH (07:29)
[2020-02-03] MEDS: Cholecalciferol (Vitamin D3) 25 MCG Tab PO SCH (07:30)
[2020-02-03] MEDS: IBUPROFEN 600 MG PO PRN ×2 (07:30→19:38)
[2020-02-03] MEDS: Acetaminophen 325 MG Tab PO PRN (16:04)
[2020-02-03] MEDS: Levothyroxine Sodium 137 MCG TABLET PO SCH (19:35)
[2020-02-03] MEDS: BUPROPION XL 300MG PO SCH (19:35)
[2020-02-03] MEDS: Simvastatin 10 MG Tab PO SCH (19:35)
[2020-02-03] MEDS: Menthol/Methyl Salicylate 85 GM Tube TOP PRN (19:36)
[2020-02-03] MEDS: Aluminum Hydroxide/Magnesium Hydroxide/Simethicone Susp 30 ML Cup PO PRN (19:48)
[2020-02-04] MEDS: Acetaminophen 325 MG Tab PO PRN ×3 (06:30→19:51)
[2020-02-04] MEDS: Furosemide 20 MG Tab PO SCH ×2 (09:04→17:47)
[2020-02-04] MEDS: Fludrocortisone 0.1 MG Tab PO SCH ×2 (09:05→19:44)
[2020-02-04] MEDS: Albuterol/Ipratropium 3.0-0.5 MG/3 ML Neb Soln NEB SCH ×4 (09:05→19:43)
[2020-02-04] MEDS: Citalopram 20 MG Tab PO SCH (09:05)
[2020-02-04] MEDS: Potassium Chloride 20 MEQ Tab.ER PO SCH ×4 (09:05→19:44)
[2020-02-04] MEDS: Calcium Carbonate 750 MG Tab.Chew PO SCH (09:06)
[2020-02-04] MEDS: Niacin 500 MG Tab PO SCH ×2 (09:06→17:48)
[2020-02-04] MEDS: Cholecalciferol (Vitamin D3) 25 MCG Tab PO SCH (09:07)
[2020-02-04] MEDS: Cyanocobalamin (Vitamin B12) 1,000 MCG Tab PO SCH (09:07)
[2020-02-04] MEDS: IBUPROFEN 600 MG PO PRN (11:36)
[2020-02-04] MEDS: Aluminum Hydroxide/Magnesium Hydroxide/Simethicone Susp 30 ML Cup PO PRN ×2 (11:37→19:52)
[2020-02-04] MEDS: Levothyroxine Sodium 137 MCG TABLET PO SCH (19:45)
[2020-02-04] MEDS: BUPROPION XL 300MG PO SCH (19:45)
[2020-02-04] MEDS: Simvastatin 10 MG Tab PO SCH (19:46)
[2020-02-05] MEDS: Citalopram 20 MG Tab PO SCH (08:15)
[2020-02-05] MEDS: Fludrocortisone 0.1 MG Tab PO SCH ×2 (08:16→19:11)
[2020-02-05] MEDS: Potassium Chloride 20 MEQ Tab.ER PO SCH ×4 (08:16→19:11)
[2020-02-05] MEDS: Furosemide 20 MG Tab PO SCH ×2 (08:16→17:50)
[2020-02-05] MEDS: Albuterol/Ipratropium 3.0-0.5 MG/3 ML Neb Soln NEB SCH ×4 (08:17→19:10)
[2020-02-05] MEDS: Niacin 500 MG Tab PO SCH ×2 (08:18→17:51)
[2020-02-05] MEDS: Calcium Carbonate 750 MG Tab.Chew PO SCH (08:18)
[2020-02-05] MEDS: Cyanocobalamin (Vitamin B12) 1,000 MCG Tab PO SCH (08:19)
[2020-02-05] MEDS: Cholecalciferol (Vitamin D3) 25 MCG Tab PO SCH (08:19)
[2020-02-05] MEDS: IBUPROFEN 600 MG PO PRN (08:21)
[2020-02-05] MEDS: Acetaminophen 325 MG Tab PO PRN (16:22)
[2020-02-05] MEDS: BUPROPION XL 300MG PO SCH (19:12)
[2020-02-05] MEDS: Levothyroxine Sodium 137 MCG TABLET PO SCH (19:12)
[2020-02-05] MEDS: Simvastatin 10 MG Tab PO SCH (19:13)
[2020-02-06] MEDS: Potassium Chloride 20 MEQ Tab.ER PO SCH ×4 (08:10→19:35)
[2020-02-06] MEDS: Citalopram 20 MG Tab PO SCH (08:10)
[2020-02-06] MEDS: Furosemide 20 MG Tab PO SCH ×2 (08:11→17:53)
[2020-02-06] MEDS: Fludrocortisone 0.1 MG Tab PO SCH ×2 (08:11→19:34)
[2020-02-06] MEDS: Niacin 500 MG Tab PO SCH ×2 (08:12→17:54)
[2020-02-06] MEDS: Albuterol/Ipratropium 3.0-0.5 MG/3 ML Neb Soln NEB SCH ×4 (08:12→19:33)
[2020-02-06] MEDS: Calcium Carbonate 750 MG Tab.Chew PO SCH (08:12)
[2020-02-06] MEDS: Cholecalciferol (Vitamin D3) 25 MCG Tab PO SCH (08:13)
[2020-02-06] MEDS: Cyanocobalamin (Vitamin B12) 1,000 MCG Tab PO SCH (08:13)
[2020-02-06] MEDS: Acetaminophen 325 MG Tab PO PRN (08:16)
[2020-02-06] MEDS: Aluminum Hydroxide/Magnesium Hydroxide/Simethicone Susp 30 ML Cup PO PRN (09:26)
[2020-02-06] MEDS: BUPROPION XL 300MG PO SCH (19:35)
[2020-02-06] MEDS: Levothyroxine Sodium 137 MCG TABLET PO SCH (19:35)
[2020-02-06] MEDS: Simvastatin 10 MG Tab PO SCH (19:36)
[2020-02-06] MEDS: IBUPROFEN 600 MG PO PRN (19:43)
[2020-02-07] MEDS: Furosemide 20 MG Tab PO SCH ×2 (08:27→17:41)
[2020-02-07] MEDS: Potassium Chloride 20 MEQ Tab.ER PO SCH ×4 (08:27→19:38)
[2020-02-07] MEDS: Fludrocortisone 0.1 MG Tab PO SCH ×2 (08:27→19:37)
[2020-02-07] MEDS: Calcium Carbonate 750 MG Tab.Chew PO SCH (08:28)
[2020-02-07] MEDS: Niacin 500 MG Tab PO SCH ×2 (08:28→17:42)
[2020-02-07] MEDS: Citalopram 20 MG Tab PO SCH (08:28)
[2020-02-07] MEDS: Albuterol/Ipratropium 3.0-0.5 MG/3 ML Neb Soln NEB SCH ×4 (08:28→19:37)
[2020-02-07] MEDS: IBUPROFEN 600 MG PO PRN ×2 (08:29→17:41)
[2020-02-07] MEDS: Cholecalciferol (Vitamin D3) 25 MCG Tab PO SCH (08:29)
[2020-02-07] MEDS: Cyanocobalamin (Vitamin B12) 1,000 MCG Tab PO SCH (08:29)
[2020-02-07] MEDS: Acetaminophen 325 MG Tab PO PRN (11:54)
[2020-02-07] MEDS: Levothyroxine Sodium 137 MCG TABLET PO SCH (19:38)
[2020-02-07] MEDS: BUPROPION XL 300MG PO SCH (19:38)
[2020-02-07] MEDS: Simvastatin 10 MG Tab PO SCH (19:38)
[2020-02-07] MEDS: Menthol/Methyl Salicylate 85 GM Tube TOP PRN (19:39)
[2020-02-07] MEDS: guaiFENesin/Dextromethorphan 100-10 MG/5 ML Soln 10 ML Cup PO PRN (23:57)
[2020-02-08] MEDS: Acetaminophen 325 MG Tab PO PRN (00:11)
[2020-02-08] MEDS: Potassium Chloride 20 MEQ Tab.ER PO SCH ×4 (07:13→19:39)
[2020-02-08] MEDS: Furosemide 20 MG Tab PO SCH ×2 (07:13→17:02)
[2020-02-08] MEDS: Citalopram 20 MG Tab PO SCH (07:13)
[2020-02-08] MEDS: Albuterol/Ipratropium 3.0-0.5 MG/3 ML Neb Soln NEB SCH ×4 (07:13→19:38)
[2020-02-08] MEDS: Fludrocortisone 0.1 MG Tab PO SCH ×2 (07:13→19:38)
[2020-02-08] MEDS: Niacin 500 MG Tab PO SCH ×2 (07:16→17:02)
[2020-02-08] MEDS: Cyanocobalamin (Vitamin B12) 1,000 MCG Tab PO SCH (07:16)
[2020-02-08] MEDS: Calcium Carbonate 750 MG Tab.Chew PO SCH (07:16)
[2020-02-08] MEDS: Cholecalciferol (Vitamin D3) 25 MCG Tab PO SCH (07:16)
[2020-02-08] MEDS: IBUPROFEN 600 MG PO PRN (08:17)
[2020-02-08] MEDS: BUPROPION XL 300MG PO SCH (19:39)
[2020-02-08] MEDS: Levothyroxine Sodium 137 MCG TABLET PO SCH (19:39)
[2020-02-08] MEDS: Simvastatin 10 MG Tab PO SCH (19:40)
[2020-02-08] MEDS: Menthol/Methyl Salicylate 85 GM Tube TOP PRN (19:40)
[2020-02-08] MEDS: Aluminum Hydroxide/Magnesium Hydroxide/Simethicone Susp 30 ML Cup PO PRN (19:52)
[2020-02-09] MEDS: Fludrocortisone 0.1 MG Tab PO SCH ×2 (08:38→19:47)
[2020-02-09] MEDS: Citalopram 20 MG Tab PO SCH (08:38)
[2020-02-09] MEDS: Potassium Chloride 20 MEQ Tab.ER PO SCH ×4 (08:39→19:48)
[2020-02-09] MEDS: Albuterol/Ipratropium 3.0-0.5 MG/3 ML Neb Soln NEB SCH ×4 (08:40→19:47)
[2020-02-09] MEDS: Niacin 500 MG Tab PO SCH ×2 (08:41→17:43)
[2020-02-09] MEDS: Furosemide 20 MG Tab PO SCH ×2 (08:41→17:42)
[2020-02-09] MEDS: Cholecalciferol (Vitamin D3) 25 MCG Tab PO SCH (08:42)
[2020-02-09] MEDS: Calcium Carbonate 750 MG Tab.Chew PO SCH (08:42)
[2020-02-09] MEDS: Cyanocobalamin (Vitamin B12) 1,000 MCG Tab PO SCH (08:42)
[2020-02-09] MEDS: Acetaminophen 325 MG Tab PO PRN ×2 (08:43→17:43)
[2020-02-09] MEDS: BUPROPION XL 300MG PO SCH (19:48)
[2020-02-09] MEDS: Levothyroxine Sodium 137 MCG TABLET PO SCH (19:48)
[2020-02-09] MEDS: Simvastatin 10 MG Tab PO SCH (19:48)
[2020-02-09] MEDS: Menthol/Methyl Salicylate 85 GM Tube TOP PRN (19:49)
[2020-02-10] MEDS: Potassium Chloride 20 MEQ Tab.ER PO SCH ×4 (08:32→19:27)
[2020-02-10] MEDS: Fludrocortisone 0.1 MG Tab PO SCH ×2 (08:33→19:27)
[2020-02-10] MEDS: Citalopram 20 MG Tab PO SCH (08:33)
[2020-02-10] MEDS: Furosemide 20 MG Tab PO SCH ×2 (08:33→17:54)
[2020-02-10] MEDS: Albuterol/Ipratropium 3.0-0.5 MG/3 ML Neb Soln NEB SCH ×4 (08:33→19:25)
[2020-02-10] MEDS: Calcium Carbonate 750 MG Tab.Chew PO SCH (08:34)
[2020-02-10] MEDS: Niacin 500 MG Tab PO SCH ×2 (08:34→17:55)
[2020-02-10] MEDS: IBUPROFEN 600 MG PO PRN ×2 (08:35→17:54)
[2020-02-10] MEDS: Cholecalciferol (Vitamin D3) 25 MCG Tab PO SCH (08:35)
[2020-02-10] MEDS: Cyanocobalamin (Vitamin B12) 1,000 MCG Tab PO SCH (08:35)
[2020-02-10] MEDS: guaiFENesin/Dextromethorphan 100-10 MG/5 ML Soln 10 ML Cup PO PRN (08:36)
[2020-02-10] MEDS: Acetaminophen 325 MG Tab PO PRN (11:17)
[2020-02-10] MEDS: Simvastatin 10 MG Tab PO SCH (19:28)
[2020-02-10] MEDS: Levothyroxine Sodium 137 MCG TABLET PO SCH (19:28)
[2020-02-10] MEDS: BUPROPION XL 300MG PO SCH (19:28)
[2020-02-11] MEDS: Calcium Carbonate 750 MG Tab.Chew PO SCH (07:14)
[2020-02-11] MEDS: Albuterol/Ipratropium 3.0-0.5 MG/3 ML Neb Soln NEB SCH ×4 (07:14→19:16)
[2020-02-11] MEDS: Fludrocortisone 0.1 MG Tab PO SCH ×2 (07:15→19:17)
[2020-02-11] MEDS: Citalopram 20 MG Tab PO SCH (07:15)
[2020-02-11] MEDS: Furosemide 20 MG Tab PO SCH ×2 (07:16→17:06)
[2020-02-11] MEDS: Potassium Chloride 20 MEQ Tab.ER PO SCH ×4 (07:16→19:17)
[2020-02-11] MEDS: Niacin 500 MG Tab PO SCH ×2 (07:16→17:06)
[2020-02-11] MEDS: Cyanocobalamin (Vitamin B12) 1,000 MCG Tab PO SCH (07:17)
[2020-02-11] MEDS: Cholecalciferol (Vitamin D3) 25 MCG Tab PO SCH (07:17)
[2020-02-11] MEDS: IBUPROFEN 600 MG PO PRN (08:05)
[2020-02-11] MEDS: guaiFENesin/Dextromethorphan 100-10 MG/5 ML Soln 10 ML Cup PO PRN (08:06)
[2020-02-11] MEDS: Acetaminophen 325 MG Tab PO PRN (11:17)
[2020-02-11] MEDS: Levothyroxine Sodium 137 MCG TABLET PO SCH (19:17)
[2020-02-11] MEDS: BUPROPION XL 300MG PO SCH (19:18)
[2020-02-11] MEDS: Simvastatin 10 MG Tab PO SCH (19:18)
[2020-02-12] MEDS: Albuterol/Ipratropium 3.0-0.5 MG/3 ML Neb Soln NEB SCH ×4 (07:06→19:19)
[2020-02-12] MEDS: Calcium Carbonate 750 MG Tab.Chew PO SCH (07:07)
[2020-02-12] MEDS: Fludrocortisone 0.1 MG Tab PO SCH ×2 (07:07→19:20)
[2020-02-12] MEDS: Citalopram 20 MG Tab PO SCH (07:07)
[2020-02-12] MEDS: Potassium Chloride 20 MEQ Tab.ER PO SCH ×4 (07:07→19:20)
[2020-02-12] MEDS: Cyanocobalamin (Vitamin B12) 1,000 MCG Tab PO SCH (07:08)
[2020-02-12] MEDS: Niacin 500 MG Tab PO SCH ×2 (07:08→17:03)
[2020-02-12] MEDS: Furosemide 20 MG Tab PO SCH ×2 (07:08→17:03)
[2020-02-12] MEDS: Cholecalciferol (Vitamin D3) 25 MCG Tab PO SCH (07:08)
[2020-02-12] MEDS: IBUPROFEN 600 MG PO PRN (08:27)
[2020-02-12] MEDS: Acetaminophen 325 MG Tab PO PRN ×2 (11:18→19:25)
[2020-02-12] MEDS: BUPROPION XL 300MG PO SCH (19:20)
[2020-02-12] MEDS: Levothyroxine Sodium 137 MCG TABLET PO SCH (19:20)
[2020-02-12] MEDS: Simvastatin 10 MG Tab PO SCH (19:20)
[2020-02-13] MEDS: Albuterol/Ipratropium 3.0-0.5 MG/3 ML Neb Soln NEB SCH ×4 (07:47→19:09)
[2020-02-13] MEDS: IBUPROFEN 600 MG PO PRN (07:48)
[2020-02-13] MEDS: Fludrocortisone 0.1 MG Tab PO SCH ×2 (07:49→19:09)
[2020-02-13] MEDS: Furosemide 20 MG Tab PO SCH ×2 (07:49→17:03)
[2020-02-13] MEDS: Citalopram 20 MG Tab PO SCH (07:49)
[2020-02-13] MEDS: Potassium Chloride 20 MEQ Tab.ER PO SCH ×4 (07:49→19:10)
[2020-02-13] MEDS: Niacin 500 MG Tab PO SCH ×2 (07:50→17:03)
[2020-02-13] MEDS: Cyanocobalamin (Vitamin B12) 1,000 MCG Tab PO SCH (07:50)
[2020-02-13] MEDS: Calcium Carbonate 750 MG Tab.Chew PO SCH (07:50)
[2020-02-13] MEDS: Cholecalciferol (Vitamin D3) 25 MCG Tab PO SCH (07:51)
[2020-02-13] MEDS: Acetaminophen 325 MG Tab PO PRN ×2 (11:19→19:14)
[2020-02-13] MEDS: Simvastatin 10 MG Tab PO SCH (19:10)
[2020-02-13] MEDS: BUPROPION XL 300MG PO SCH (19:10)
[2020-02-13] MEDS: Levothyroxine Sodium 137 MCG TABLET PO SCH (19:10)
[2020-02-14] MEDS: guaiFENesin/Dextromethorphan 100-10 MG/5 ML Soln 10 ML Cup PO PRN ×2 (01:55→16:48)
[2020-02-14] MEDS: Fludrocortisone 0.1 MG Tab PO SCH ×2 (08:27→19:16)
[2020-02-14] MEDS: Furosemide 20 MG Tab PO SCH ×2 (08:27→17:33)
[2020-02-14] MEDS: Potassium Chloride 20 MEQ Tab.ER PO SCH ×4 (08:27→19:16)
[2020-02-14] MEDS: Citalopram 20 MG Tab PO SCH (08:27)
[2020-02-14] MEDS: Albuterol/Ipratropium 3.0-0.5 MG/3 ML Neb Soln NEB SCH ×4 (08:28→19:15)
[2020-02-14] MEDS: Niacin 500 MG Tab PO SCH ×2 (08:28→17:34)
[2020-02-14] MEDS: Calcium Carbonate 750 MG Tab.Chew PO SCH (08:28)
[2020-02-14] MEDS: Cholecalciferol (Vitamin D3) 25 MCG Tab PO SCH (08:29)
[2020-02-14] MEDS: Cyanocobalamin (Vitamin B12) 1,000 MCG Tab PO SCH (08:29)
[2020-02-14] MEDS: IBUPROFEN 600 MG PO PRN (08:30)
[2020-02-14] MEDS: MAGNESIUM SULFATE TOP SCH (11:09)
[2020-02-14] MEDS: Bacitracin/Neomycin/Polymyxin B Oint 0.9 GM U/D Packet TOP SCH (11:10)
[2020-02-14] MEDS: Acetaminophen 325 MG Tab PO PRN (17:34)
[2020-02-14] MEDS: Levothyroxine Sodium 137 MCG TABLET PO SCH (19:17)
[2020-02-14] MEDS: BUPROPION XL 300MG PO SCH (19:17)
[2020-02-14] MEDS: Simvastatin 10 MG Tab PO SCH (19:17)
[2020-02-15] MEDS: MAGNESIUM SULFATE TOP SCH (06:59)
[2020-02-15] MEDS: Citalopram 20 MG Tab PO SCH (07:00)
[2020-02-15] MEDS: Albuterol/Ipratropium 3.0-0.5 MG/3 ML Neb Soln NEB SCH ×4 (07:00→19:14)
[2020-02-15] MEDS: Potassium Chloride 20 MEQ Tab.ER PO SCH ×4 (07:00→19:09)
[2020-02-15] MEDS: Fludrocortisone 0.1 MG Tab PO SCH ×2 (07:00→19:09)
[2020-02-15] MEDS: Bacitracin/Neomycin/Polymyxin B Oint 0.9 GM U/D Packet TOP SCH (07:01)
[2020-02-15] MEDS: Furosemide 20 MG Tab PO SCH ×2 (07:01→17:12)
[2020-02-15] MEDS: Niacin 500 MG Tab PO SCH ×2 (07:01→17:12)
[2020-02-15] MEDS: Cholecalciferol (Vitamin D3) 25 MCG Tab PO SCH (07:02)
[2020-02-15] MEDS: Cyanocobalamin (Vitamin B12) 1,000 MCG Tab PO SCH (07:02)
[2020-02-15] MEDS: Calcium Carbonate 750 MG Tab.Chew PO SCH (07:02)
[2020-02-15] MEDS: IBUPROFEN 600 MG PO PRN (08:13)
[2020-02-15] MEDS: Levothyroxine Sodium 137 MCG TABLET PO SCH (19:09)
[2020-02-15] MEDS: BUPROPION XL 300MG PO SCH (19:09)
[2020-02-15] MEDS: Simvastatin 10 MG Tab PO SCH (19:10)
[2020-02-15] MEDS: Acetaminophen 325 MG Tab PO PRN (19:10)
[2020-02-16] MEDS: Citalopram 20 MG Tab PO SCH (08:12)
[2020-02-16] MEDS: Albuterol/Ipratropium 3.0-0.5 MG/3 ML Neb Soln NEB SCH ×4 (08:13→19:36)
[2020-02-16] MEDS: MAGNESIUM SULFATE TOP SCH (08:17)
[2020-02-16] MEDS: Furosemide 20 MG Tab PO SCH ×2 (08:23→17:17)
[2020-02-16] MEDS: Potassium Chloride 20 MEQ Tab.ER PO SCH ×4 (08:23→19:36)
[2020-02-16] MEDS: Fludrocortisone 0.1 MG Tab PO SCH ×2 (08:23→19:36)
[2020-02-16] MEDS: IBUPROFEN 600 MG PO PRN ×2 (08:24→19:37)
[2020-02-16] MEDS: Bacitracin/Neomycin/Polymyxin B Oint 0.9 GM U/D Packet TOP SCH (08:24)
[2020-02-16] MEDS: Niacin 500 MG Tab PO SCH ×2 (08:24→17:17)
[2020-02-16] MEDS: Cyanocobalamin (Vitamin B12) 1,000 MCG Tab PO SCH (08:25)
[2020-02-16] MEDS: Calcium Carbonate 750 MG Tab.Chew PO SCH (08:25)
[2020-02-16] MEDS: Cholecalciferol (Vitamin D3) 25 MCG Tab PO SCH (08:25)
[2020-02-16] MEDS: BUPROPION XL 300MG PO SCH (19:37)
[2020-02-16] MEDS: Levothyroxine Sodium 137 MCG TABLET PO SCH (19:37)
[2020-02-16] MEDS: Simvastatin 10 MG Tab PO SCH (19:37)
[2020-02-16] MEDS: Menthol/Methyl Salicylate 85 GM Tube TOP PRN (19:38)
[2020-02-17] MEDS: Citalopram 20 MG Tab PO SCH (08:28)
[2020-02-17] MEDS: Fludrocortisone 0.1 MG Tab PO SCH ×2 (08:28→19:40)
[2020-02-17] MEDS: Furosemide 20 MG Tab PO SCH ×2 (08:29→17:31)
[2020-02-17] MEDS: Albuterol/Ipratropium 3.0-0.5 MG/3 ML Neb Soln NEB SCH ×4 (08:29→19:39)
[2020-02-17] MEDS: Potassium Chloride 20 MEQ Tab.ER PO SCH ×4 (08:29→19:40)
[2020-02-17] MEDS: Niacin 500 MG Tab PO SCH ×2 (08:30→17:31)
[2020-02-17] MEDS: MAGNESIUM SULFATE TOP SCH (08:30)
[2020-02-17] MEDS: Bacitracin/Neomycin/Polymyxin B Oint 0.9 GM U/D Packet TOP SCH (08:31)
[2020-02-17] MEDS: Cyanocobalamin (Vitamin B12) 1,000 MCG Tab PO SCH (08:31)
[2020-02-17] MEDS: Calcium Carbonate 750 MG Tab.Chew PO SCH (08:31)
[2020-02-17] MEDS: Cholecalciferol (Vitamin D3) 25 MCG Tab PO SCH (08:32)
[2020-02-17] MEDS: IBUPROFEN 600 MG PO PRN (08:32)
[2020-02-17] MEDS: Acetaminophen 325 MG Tab PO PRN ×2 (11:41→19:46)
[2020-02-17] MEDS: BUPROPION XL 300MG PO SCH (19:41)
[2020-02-17] MEDS: Simvastatin 10 MG Tab PO SCH (19:41)
[2020-02-17] MEDS: Levothyroxine Sodium 137 MCG TABLET PO SCH (19:41)
[2020-02-18] MEDS: Citalopram 20 MG Tab PO SCH (08:15)
[2020-02-18] MEDS: Potassium Chloride 20 MEQ Tab.ER PO SCH ×4 (08:15→19:35)
[2020-02-18] MEDS: Fludrocortisone 0.1 MG Tab PO SCH ×2 (08:15→19:35)
[2020-02-18] MEDS: Furosemide 20 MG Tab PO SCH ×2 (08:15→17:55)
[2020-02-18] MEDS: IBUPROFEN 600 MG PO PRN ×2 (08:16→19:36)
[2020-02-18] MEDS: MAGNESIUM SULFATE TOP SCH (08:16)
[2020-02-18] MEDS: Albuterol/Ipratropium 3.0-0.5 MG/3 ML Neb Soln NEB SCH ×4 (08:16→21:54)
[2020-02-18] MEDS: Niacin 500 MG Tab PO SCH ×2 (08:17→17:55)
[2020-02-18] MEDS: Bacitracin/Neomycin/Polymyxin B Oint 0.9 GM U/D Packet TOP SCH (08:17)
[2020-02-18] MEDS: Calcium Carbonate 750 MG Tab.Chew PO SCH (08:19)
[2020-02-18] MEDS: Cholecalciferol (Vitamin D3) 25 MCG Tab PO SCH (08:20)
[2020-02-18] MEDS: Cyanocobalamin (Vitamin B12) 1,000 MCG Tab PO SCH (08:20)
[2020-02-18] MEDS: Acetaminophen 325 MG Tab PO PRN (15:55)
[2020-02-18] MEDS: Levothyroxine Sodium 137 MCG TABLET PO SCH (19:35)
[2020-02-18] MEDS: Simvastatin 10 MG Tab PO SCH (19:36)
[2020-02-18] MEDS: BUPROPION XL 300MG PO SCH (19:36)
[2020-02-18] MEDS: Menthol/Methyl Salicylate 85 GM Tube TOP PRN (19:37)
[2020-02-19] MEDS: Citalopram 20 MG Tab PO SCH (08:17)
[2020-02-19] MEDS: Potassium Chloride 20 MEQ Tab.ER PO SCH ×4 (08:17→19:30)
[2020-02-19] MEDS: Fludrocortisone 0.1 MG Tab PO SCH ×2 (08:17→19:30)
[2020-02-19] MEDS: Furosemide 20 MG Tab PO SCH ×2 (08:17→17:00)
[2020-02-19] MEDS: Niacin 500 MG Tab PO SCH ×2 (08:18→17:00)
[2020-02-19] MEDS: Calcium Carbonate 750 MG Tab.Chew PO SCH (08:19)
[2020-02-19] MEDS: Bacitracin/Neomycin/Polymyxin B Oint 0.9 GM U/D Packet TOP SCH (08:19)
[2020-02-19] MEDS: Cholecalciferol (Vitamin D3) 25 MCG Tab PO SCH (08:19)
[2020-02-19] MEDS: Cyanocobalamin (Vitamin B12) 1,000 MCG Tab PO SCH (08:19)
[2020-02-19] MEDS: MAGNESIUM SULFATE TOP SCH (08:20)
[2020-02-19] MEDS: Albuterol/Ipratropium 3.0-0.5 MG/3 ML Neb Soln NEB SCH ×4 (08:20→19:29)
[2020-02-19] MEDS: IBUPROFEN 600 MG PO PRN (08:25)
[2020-02-19] MEDS: Acetaminophen 325 MG Tab PO PRN (17:00)
[2020-02-19] MEDS: Levothyroxine Sodium 137 MCG TABLET PO SCH (19:30)
[2020-02-19] MEDS: BUPROPION XL 300MG PO SCH (19:30)
[2020-02-19] MEDS: Simvastatin 10 MG Tab PO SCH (19:30)
[2020-02-19] MEDS: Menthol/Methyl Salicylate 85 GM Tube TOP PRN (19:31)
[2020-02-20] MEDS: Furosemide 20 MG Tab PO SCH ×2 (08:12→17:38)
[2020-02-20] MEDS: Fludrocortisone 0.1 MG Tab PO SCH ×2 (08:12→19:34)
[2020-02-20] MEDS: Potassium Chloride 20 MEQ Tab.ER PO SCH ×4 (08:12→19:34)
[2020-02-20] MEDS: Niacin 500 MG Tab PO SCH ×2 (08:13→17:39)
[2020-02-20] MEDS: MAGNESIUM SULFATE TOP SCH (08:13)
[2020-02-20] MEDS: Bacitracin/Neomycin/Polymyxin B Oint 0.9 GM U/D Packet TOP SCH (08:13)
[2020-02-20] MEDS: Citalopram 20 MG Tab PO SCH (08:13)
[2020-02-20] MEDS: Albuterol/Ipratropium 3.0-0.5 MG/3 ML Neb Soln NEB SCH ×4 (08:13→19:33)
[2020-02-20] MEDS: Calcium Carbonate 750 MG Tab.Chew PO SCH (08:14)
[2020-02-20] MEDS: Cholecalciferol (Vitamin D3) 25 MCG Tab PO SCH (08:14)
[2020-02-20] MEDS: Cyanocobalamin (Vitamin B12) 1,000 MCG Tab PO SCH (08:14)
[2020-02-20] MEDS: IBUPROFEN 600 MG PO PRN (08:14)
[2020-02-20] MEDS: Aluminum Hydroxide/Magnesium Hydroxide/Simethicone Susp 30 ML Cup PO PRN (09:30)
[2020-02-20] MEDS: Acetaminophen 325 MG Tab PO PRN ×2 (11:48→17:39)
[2020-02-20] MEDS: BUPROPION XL 300MG PO SCH (19:35)
[2020-02-20] MEDS: Levothyroxine Sodium 137 MCG TABLET PO SCH (19:35)
[2020-02-20] MEDS: Simvastatin 10 MG Tab PO SCH (19:35)
[2020-02-20] MEDS: Menthol/Methyl Salicylate 85 GM Tube TOP PRN (19:36)
[2020-02-21] MEDS: Albuterol/Ipratropium 3.0-0.5 MG/3 ML Neb Soln NEB SCH ×4 (07:55→19:17)
[2020-02-21] MEDS: Citalopram 20 MG Tab PO SCH (07:56)
[2020-02-21] MEDS: Fludrocortisone 0.1 MG Tab PO SCH ×2 (07:57→19:17)
[2020-02-21] MEDS: Furosemide 20 MG Tab PO SCH ×2 (07:58→17:39)
[2020-02-21] MEDS: Potassium Chloride 20 MEQ Tab.ER PO SCH ×4 (07:58→19:18)
[2020-02-21] MEDS: Niacin 500 MG Tab PO SCH ×2 (07:58→17:40)
[2020-02-21] MEDS: Bacitracin/Neomycin/Polymyxin B Oint 0.9 GM U/D Packet TOP SCH (07:59)
[2020-02-21] MEDS: Calcium Carbonate 750 MG Tab.Chew PO SCH (07:59)
[2020-02-21] MEDS: Cyanocobalamin (Vitamin B12) 1,000 MCG Tab PO SCH (08:00)
[2020-02-21] MEDS: Cholecalciferol (Vitamin D3) 25 MCG Tab PO SCH (08:01)
[2020-02-21] MEDS: IBUPROFEN 600 MG PO PRN (08:02)
[2020-02-21] MEDS: MAGNESIUM SULFATE TOP SCH (09:16)
[2020-02-21] MEDS: BUPROPION XL 300MG PO SCH (19:18)
[2020-02-21] MEDS: Simvastatin 10 MG Tab PO SCH (19:18)
[2020-02-21] MEDS: Levothyroxine Sodium 137 MCG TABLET PO SCH (19:18)
[2020-02-22] MEDS: Albuterol/Ipratropium 3.0-0.5 MG/3 ML Neb Soln NEB SCH ×4 (08:16→19:14)
[2020-02-22] MEDS: Citalopram 20 MG Tab PO SCH (08:16)
[2020-02-22] MEDS: Fludrocortisone 0.1 MG Tab PO SCH ×2 (08:16→19:15)
[2020-02-22] MEDS: Furosemide 20 MG Tab PO SCH ×2 (08:17→17:44)
[2020-02-22] MEDS: Potassium Chloride 20 MEQ Tab.ER PO SCH ×4 (08:17→19:15)
[2020-02-22] MEDS: IBUPROFEN 600 MG PO PRN (08:18)
[2020-02-22] MEDS: Bacitracin/Neomycin/Polymyxin B Oint 0.9 GM U/D Packet TOP SCH (08:21)
[2020-02-22] MEDS: Niacin 500 MG Tab PO SCH ×2 (08:21→17:45)
[2020-02-22] MEDS: Calcium Carbonate 750 MG Tab.Chew PO SCH (08:22)
[2020-02-22] MEDS: Cyanocobalamin (Vitamin B12) 1,000 MCG Tab PO SCH (08:22)
[2020-02-22] MEDS: Cholecalciferol (Vitamin D3) 25 MCG Tab PO SCH (08:23)
[2020-02-22] MEDS: Simvastatin 10 MG Tab PO SCH (19:16)
[2020-02-22] MEDS: Acetaminophen 325 MG Tab PO PRN (19:16)
[2020-02-22] MEDS: Levothyroxine Sodium 137 MCG TABLET PO SCH (19:16)
[2020-02-22] MEDS: BUPROPION XL 300MG PO SCH (19:16)
[2020-02-23] MEDS: Potassium Chloride 20 MEQ Tab.ER PO SCH ×4 (08:29→19:42)
[2020-02-23] MEDS: Fludrocortisone 0.1 MG Tab PO SCH ×2 (08:29→19:41)
[2020-02-23] MEDS: Citalopram 20 MG Tab PO SCH (08:29)
[2020-02-23] MEDS: Furosemide 20 MG Tab PO SCH ×2 (08:29→17:35)
[2020-02-23] MEDS: Niacin 500 MG Tab PO SCH ×2 (08:30→17:35)
[2020-02-23] MEDS: Albuterol/Ipratropium 3.0-0.5 MG/3 ML Neb Soln NEB SCH ×4 (08:30→19:41)
[2020-02-23] MEDS: Cholecalciferol (Vitamin D3) 25 MCG Tab PO SCH (08:31)
[2020-02-23] MEDS: Cyanocobalamin (Vitamin B12) 1,000 MCG Tab PO SCH (08:31)
[2020-02-23] MEDS: Calcium Carbonate 750 MG Tab.Chew PO SCH (08:31)
[2020-02-23] MEDS: Aluminum Hydroxide/Magnesium Hydroxide/Simethicone Susp 30 ML Cup PO PRN (09:00)
[2020-02-23] MEDS: Acetaminophen 325 MG Tab PO PRN ×2 (12:00→17:35)
[2020-02-23] MEDS: Levothyroxine Sodium 137 MCG TABLET PO SCH (19:42)
[2020-02-23] MEDS: Simvastatin 10 MG Tab PO SCH (19:43)
[2020-02-23] MEDS: BUPROPION XL 300MG PO SCH (19:43)
[2020-02-24] MEDS: Citalopram 20 MG Tab PO SCH (08:24)
[2020-02-24] MEDS: Potassium Chloride 20 MEQ Tab.ER PO SCH ×4 (08:24→19:25)
[2020-02-24] MEDS: Furosemide 20 MG Tab PO SCH ×2 (08:25→17:34)
[2020-02-24] MEDS: Calcium Carbonate 750 MG Tab.Chew PO SCH (08:25)
[2020-02-24] MEDS: Niacin 500 MG Tab PO SCH ×2 (08:25→17:35)
[2020-02-24] MEDS: Albuterol/Ipratropium 3.0-0.5 MG/3 ML Neb Soln NEB SCH ×4 (08:25→19:25)
[2020-02-24] MEDS: Fludrocortisone 0.1 MG Tab PO SCH ×2 (08:25→19:25)
[2020-02-24] MEDS: Cyanocobalamin (Vitamin B12) 1,000 MCG Tab PO SCH (08:26)
[2020-02-24] MEDS: IBUPROFEN 600 MG PO PRN ×2 (08:26→19:26)
[2020-02-24] MEDS: Cholecalciferol (Vitamin D3) 25 MCG Tab PO SCH (08:26)
[2020-02-24] MEDS: Acetaminophen 325 MG Tab PO PRN (17:35)
[2020-02-24] MEDS: BUPROPION XL 300MG PO SCH (19:26)
[2020-02-24] MEDS: Simvastatin 10 MG Tab PO SCH (19:26)
[2020-02-24] MEDS: Levothyroxine Sodium 137 MCG TABLET PO SCH (19:26)
[2020-02-25] MEDS: Citalopram 20 MG Tab PO SCH (07:53)
[2020-02-25] MEDS: Albuterol/Ipratropium 3.0-0.5 MG/3 ML Neb Soln NEB SCH ×4 (07:54→19:33)
[2020-02-25] MEDS: Fludrocortisone 0.1 MG Tab PO SCH ×2 (07:55→19:33)
[2020-02-25] MEDS: Potassium Chloride 20 MEQ Tab.ER PO SCH ×4 (07:55→19:34)
[2020-02-25] MEDS: Furosemide 20 MG Tab PO SCH ×2 (07:56→17:35)
[2020-02-25] MEDS: Niacin 500 MG Tab PO SCH ×2 (07:57→17:35)
[2020-02-25] MEDS: Calcium Carbonate 750 MG Tab.Chew PO SCH (07:57)
[2020-02-25] MEDS: Cyanocobalamin (Vitamin B12) 1,000 MCG Tab PO SCH (07:58)
[2020-02-25] MEDS: Cholecalciferol (Vitamin D3) 25 MCG Tab PO SCH (07:58)
[2020-02-25] MEDS: Acetaminophen 325 MG Tab PO PRN ×2 (08:02→19:38)
[2020-02-25] MEDS: Albuterol/Ipratropium 3.0-0.5 MG/3 ML Neb Soln NEB PRN (11:17)
[2020-02-25] MEDS: IBUPROFEN 600 MG PO PRN (16:09)
[2020-02-25] MEDS: Levothyroxine Sodium 137 MCG TABLET PO SCH (19:34)
[2020-02-25] MEDS: BUPROPION XL 300MG PO SCH (19:35)
[2020-02-25] MEDS: Simvastatin 10 MG Tab PO SCH (19:35)
[2020-02-25] MEDS: Menthol/Methyl Salicylate 85 GM Tube TOP PRN (19:36)
[2020-02-26] MEDS: Acetaminophen 325 MG Tab PO PRN ×2 (08:19→16:39)
[2020-02-26] MEDS: Citalopram 20 MG Tab PO SCH (08:20)
[2020-02-26] MEDS: Albuterol/Ipratropium 3.0-0.5 MG/3 ML Neb Soln NEB SCH ×4 (08:21→19:49)
[2020-02-26] MEDS: Cholecalciferol (Vitamin D3) 25 MCG Tab PO SCH (08:21)
[2020-02-26] MEDS: Potassium Chloride 20 MEQ Tab.ER PO SCH ×4 (08:21→19:50)
[2020-02-26] MEDS: Fludrocortisone 0.1 MG Tab PO SCH ×2 (08:21→19:50)
[2020-02-26] MEDS: Furosemide 20 MG Tab PO SCH ×2 (08:21→17:31)
[2020-02-26] MEDS: Calcium Carbonate 750 MG Tab.Chew PO SCH (08:22)
[2020-02-26] MEDS: Cyanocobalamin (Vitamin B12) 1,000 MCG Tab PO SCH (08:22)
[2020-02-26] MEDS: Niacin 500 MG Tab PO SCH ×2 (08:35→17:31)
[2020-02-26] MEDS: Levothyroxine Sodium 137 MCG TABLET PO SCH (19:50)
[2020-02-26] MEDS: Simvastatin 10 MG Tab PO SCH (19:50)
[2020-02-26] MEDS: BUPROPION XL 300MG PO SCH (19:50)
[2020-02-26] MEDS: IBUPROFEN 600 MG PO PRN (19:53)
[2020-02-26] MEDS: Menthol/Methyl Salicylate 85 GM Tube TOP PRN (19:54)
[2020-02-27] MEDS: Citalopram 20 MG Tab PO SCH (08:15)
[2020-02-27] MEDS: Potassium Chloride 20 MEQ Tab.ER PO SCH ×4 (08:15→19:28)
[2020-02-27] MEDS: Fludrocortisone 0.1 MG Tab PO SCH ×2 (08:15→19:27)
[2020-02-27] MEDS: Albuterol/Ipratropium 3.0-0.5 MG/3 ML Neb Soln NEB SCH ×4 (08:15→19:27)
[2020-02-27] MEDS: Calcium Carbonate 750 MG Tab.Chew PO SCH (08:16)
[2020-02-27] MEDS: Furosemide 20 MG Tab PO SCH ×2 (08:16→17:20)
[2020-02-27] MEDS: Cyanocobalamin (Vitamin B12) 1,000 MCG Tab PO SCH (08:17)
[2020-02-27] MEDS: Cholecalciferol (Vitamin D3) 25 MCG Tab PO SCH (08:18)
[2020-02-27] MEDS: Niacin 500 MG Tab PO SCH ×2 (08:19→17:21)
[2020-02-27] MEDS: Simvastatin 10 MG Tab PO SCH (19:28)
[2020-02-27] MEDS: Levothyroxine Sodium 137 MCG TABLET PO SCH (19:28)
[2020-02-27] MEDS: BUPROPION XL 300MG PO SCH (19:28)
[2020-02-27] MEDS: Menthol/Methyl Salicylate 85 GM Tube TOP PRN (19:29)
[2020-02-27] MEDS: Acetaminophen 325 MG Tab PO PRN (19:30)
[2020-02-27] MEDS: Aluminum Hydroxide/Magnesium Hydroxide/Simethicone Susp 30 ML Cup PO PRN (19:31)
[2020-02-28] MEDS: Potassium Chloride 20 MEQ Tab.ER PO SCH ×4 (07:59→19:55)
[2020-02-28] MEDS: Citalopram 20 MG Tab PO SCH (07:59)
[2020-02-28] MEDS: Furosemide 20 MG Tab PO SCH ×2 (07:59→17:27)
[2020-02-28] MEDS: Fludrocortisone 0.1 MG Tab PO SCH ×2 (07:59→19:55)
[2020-02-28] MEDS: Calcium Carbonate 750 MG Tab.Chew PO SCH (08:00)
[2020-02-28] MEDS: Niacin 500 MG Tab PO SCH ×2 (08:00→17:27)
[2020-02-28] MEDS: Cyanocobalamin (Vitamin B12) 1,000 MCG Tab PO SCH (08:01)
[2020-02-28] MEDS: Albuterol/Ipratropium 3.0-0.5 MG/3 ML Neb Soln NEB SCH ×4 (08:01→19:55)
[2020-02-28] MEDS: Cholecalciferol (Vitamin D3) 25 MCG Tab PO SCH (08:01)
[2020-02-28] MEDS: Albuterol/Ipratropium 3.0-0.5 MG/3 ML Neb Soln NEB PRN (12:14)
[2020-02-28] MEDS: Simvastatin 10 MG Tab PO SCH (19:55)
[2020-02-28] MEDS: BUPROPION XL 300MG PO SCH (19:55)
[2020-02-28] MEDS: Levothyroxine Sodium 137 MCG TABLET PO SCH (19:55)
[2020-02-28] MEDS: Menthol/Methyl Salicylate 85 GM Tube TOP PRN (19:56)
[2020-02-28] MEDS: Acetaminophen 325 MG Tab PO PRN (20:01)
[2020-02-29] MEDS: Citalopram 20 MG Tab PO SCH (08:01)
[2020-02-29] MEDS: Furosemide 20 MG Tab PO SCH ×2 (08:02→17:37)
[2020-02-29] MEDS: Albuterol/Ipratropium 3.0-0.5 MG/3 ML Neb Soln NEB SCH ×4 (08:02→19:20)
[2020-02-29] MEDS: Potassium Chloride 20 MEQ Tab.ER PO SCH ×4 (08:02→19:20)
[2020-02-29] MEDS: Fludrocortisone 0.1 MG Tab PO SCH ×2 (08:02→19:20)
[2020-02-29] MEDS: Calcium Carbonate 750 MG Tab.Chew PO SCH (08:04)
[2020-02-29] MEDS: Niacin 500 MG Tab PO SCH ×2 (08:04→17:37)
[2020-02-29] MEDS: Cholecalciferol (Vitamin D3) 25 MCG Tab PO SCH (08:05)
[2020-02-29] MEDS: Cyanocobalamin (Vitamin B12) 1,000 MCG Tab PO SCH (08:05)
[2020-02-29] MEDS: Acetaminophen 325 MG Tab PO PRN ×2 (08:09→19:23)
--- NOTE | 2020-02-29 14:12 | PCM.PN ---
- General Info Date of Service: 02/29/20 Admission Dx/Problem (Free Text): 1. Recurrent C. difficile colitis 2. Chronic diarrhea 3. Myotonic dystrophy with secondary weakness Functional Status: Reports: Pain Controlled, Tolerating Diet, Ambulating (With assist), Urinating. Denies: New Symptoms, Incentive Spirometry Pain Score: 0 - Review of Systems General: Reports: Weakness (Stable chronic). Denies: Fatigue, Malaise, Chills, Night Sweats HEENT: Reports: No Symptoms. Denies: Ear Pain, Eye Pain, Post Nasal Drip, Sinus Congestion, Sore Throat, Rhinitis, Visual Changes Pulmonary: Reports: No Symptoms. Denies: Shortness of Breath, Pleuritic Chest Pain, Cough, Sputum, Hemoptysis, Wheezing Cardiovascular: Reports: Edema (Stable dependent). Denies: Chest Pain, Palpitations, Dyspnea on Exertion, Orthopnea, Lightheadedness Gastrointestinal: Reports: No Symptoms. Denies: Abdominal Pain, Constipation, Decreased Appetite, Diarrhea, Difficulty Swallowing, Flatus, Hematochezia, Melena, Nausea, Vomiting Genitourinary: Reports: No Symptoms, Incontinence. Denies: Dysuria, Frequency, Burning, Urgency, Hematuria, Retention, Flank Pain Musculoskeletal: Denies: Neck Pain, Shoulder Pain, Arm Pain, Back Pain, Leg Pain , Joint Swelling Skin: Reports: No Symptoms. Denies: Diaphoresis, Bruising Neurological: Reports: Difficulty Walking, Weakness. Denies: Confusion, Dizziness, Headache, Numbness, Paresthesia, Tingling Psychiatric: Reports: No Symptoms. Denies: Confusion, Depression, Anxiety, Agitation, Cravings, Hallucinations - Patient Data Vitals - Most Recent: Last Vital Signs Temp 35.8 C L 02/29/20 08:00 Pulse 66 02/29/20 08:00 Resp 20 02/29/20 08:00 BP 129/71 02/29/20 08:00 Pulse Ox 96 02/29/20 08:00 Weight - Most Recent: 85.729 kg (Down from 93.8 kg 4 months ago) I&O - Last 24 Hours: Intake & Output 02/28/20 02/29/20 02/29/20 22:59 06:59 14:59 Intake Total 840 640 Balance 840 640 Imaging Impressions - Last 24 Hours: None Lab Results Last 24 Hours: None Sandor Results Last 24 Hours: None Med Orders - Current: Current Medications Acetaminophen (Tylenol) 650 mg PO Q4H PRN PRN Reason: Pain Last Admin: 02/29/20 08:09 Dose: 650 mg Al Hydroxide/Mg Hydroxide (Mag-Al Plus) 30 ml PO Q4H PRN PRN Reason: Indigestion Last Admin: 02/27/20 19:31 Dose: 30 ml Albuterol/Ipratropium (Duoneb 3.0-0.5 Mg/3 Ml) 3 ml NEB Q4HRRT PRN PRN Reason: Dyspnea Last Admin: 02/28/20 12:14 Dose: 3 ml Albuterol/Ipratropium (Duoneb 3.0-0.5 Mg/3 Ml) 3 ml NEB QIDRT [facility] Last Admin: 02/29/20 11:16 Dose: 3 ml Calcium Carbonate/Glycine (Tums Extra Strength) 1,500 mg PO DAILY [facility] Last Admin: 02/29/20 08:04 Dose: 1,500 mg Cholecalciferol (Vitamin D3) 25 mcg PO DAILY [facility] Last Admin: 02/29/20 08:05 Dose: 25 mcg [facility]italopram [facility]brom[facility] ([facility]lexa) [facility] [place] Admin: 02/29/20 08:01 Dose: 20 mg Cyanocobalamin (Vitamin B12) 1,000 mcg PO QAM [facility] Last Admin: 02/29/20 08:05 Dose: 1,000 mcg Fludrocortisone Acetate (Florinef) 0.1 mg PO BEDTIME [facility] Last Admin: 02/28/20 19:55 Dose: 0.1 mg Fludrocortisone Acetate (Florinef) 0.2 [facility] [place] Admin: 02/29/20 08:02 Dose: 0.2 mg Furosemide (Lasix) 20 mg PO BID [facility] Last Admin: 02/29/20 08:02 Dose: 20 mg Guaifenesin/Dextromethorphan (Robitussin Dm) 10 ml PO Q4H PRN PRN Reason: Cough Last Admin: 02/14/20 16:48 Dose: 10 ml Ibuprofen (Motrin) 600 mg PO Q6H PRN PRN Reason: Breakthrough Pain Last Admin: 02/26/20 19:53 Dose: 600 mg Magnesium Hydroxide (Milk Of Magnesia) 30 ml PO DAILY PRN PRN Reason: Constipation Last Admin: 12/18/19 11:36 Dose: 30 ml Methyl Salicylate (Icy Hot Cream) 0 gm TOP QID PRN PRN Reason: Pain (mild 1-3) Last Admin: 02/28/20 19:56 Dose: 1 applic Niacin (Niacin) 500 mg PO BID [facility] Last Admin: 02/29/20 08:04 Dose: 500 mg Levothyroxine Sodium (137 Mcg Tablet) 137 mcg PO BEDTIME [facility] Last Admin: 02/28/20 19:55 Dose: 137 mcg Bupropion Xl 300mg 1 each PO BEDTIME [facility] Last Admin: 02/28/20 19:55 Dose: 1 each Potassium Chloride (Klor-Con M20) 40 meq PO QID [facility] Last Admin: 02/29/20 11:17 Dose: 40 meq Simvastatin (Zocor) 10 mg PO BEDTIME [facility] Last Admin: 02/28/20 19:55 Dose: 10 mg Discontinued Medications Albuterol/Ipratropium (Duoneb 3.0-0.5 Mg/3 Ml) 3 ml NEB BIDRT [facility] Last Admin: 12/21/19 07:23 Dose: 3 ml Betamethasone/Clotrimazole (Lotrisone) 0 gm TOP Q12HR [facility] Last Admin: 07/23/19 08:20 Dose: 1 applic Bisacodyl (Dulcolax) 10 mg PO ONETIME ONE Stop: 09/21/19 18:01 Last Admin: 09/21/19 17:41 Dose: 10 mg Bisacodyl (Dulcolax) 10 mg PO ONETIME ONE Stop: 09/22/19 18:01 Last Admin: 09/22/19 17:24 Dose: 10 mg Budesonide (Pulmicort) 0.5 mg NEB Q12HR [facility] Stop: 08/06/19 20:01 Last Admin: 08/06/19 19:35 Dose: 0.5 mg Bupropion HCl (Wellbutrin) 150 mg PO BEDTIME [facility] Last Admin: 12/20/19 19:28 Dose: 150 mg Calcium Carbonate/Glycine (Tums) 500 mg PO TID@0800,1400,2000 [facility] Last Admin: 11/10/19 07:06 Dose: 500 mg Cholecalciferol (Vitamin D3) 1,000 mcg PO QAM [facility] Last Admin: 05/26/19 08:49 Dose: Not Given Diphenoxylate HCl/Atropine (Lomotil 0.025-2.5 Mg) 1 tab PO TID PRN PRN Reason: Diarrhea Last Admin: 09/29/19 09:52 Dose: 1 tab Furosemide (Lasix) 20 mg PO DAILY [facility] Last Admin: 12/21/19 07:24 Dose: 20 mg Furosemide (Lasix) 40 mg IM NOW ONE Stop: 01/13/20 14:59 Last Admin: 01/13/20 17:26 Dose: 40 mg Guaifenesin/Dextromethorphan (Robitussin Dm) 10 ml PO Q4H PRN PRN Reason: Cough Last Admin: 07/20/19 19:28 Dose: 10 ml Guaifenesin/Pseudoephedrine HCl (Mucinex D Er 600-60 Mg) 1 tab PO Q12H [facility] Stop: 07/31/19 20:01 Last Admin: 07/31/19 19:30 Dose: 1 tab Influenza Virus Vaccine (Fluzone Quad [id number] Syringe) 60 mcg IM .ONCE ONE Stop: 09/07/19 14:01 Last Admin: 09/07/19 13:37 Dose: 60 mcg Magnesium Sulfate (Epsom Salt) 0 gm TOP DAILY [facility] Last Admin: 02/21/20 09:16 Dose: Not Given Neomycin/Polymyxin/Bacitracin (Triple Antibiotic Oint) 1 each TOP DAILY [facility] Last Admin: 02/22/20 08:21 Dose: 1 each Vancomycin 125mg (Capsules) 1 each PO QID [facility] Stop: 06/29/19 16:01 Last Admin: 06/29/19 17:37 Dose: 1 each Fidaxomicin (Dificid () 200mg Tablet) 1 each PO BID [facility] Stop: 07/09/19 08:01 Last Admin: 07/09/19 07:24 Dose: 1 each Benzonatate 200mg (Cap Own Med ) 200 each PO Q12HR [facility] Stop: 08/06/19 20:01 Last Admin: 08/06/19 19:45 Dose: Not Given Nystatin And Triamcinolone Crm ( Mycolog) Own Med 1 each TOP Q12HR [facility] Stop: 08/02/19 20:01 Last Admin: 08/02/19 19:16 Dose: 1 each Nystatin (Nystatin Crm) 1 gm TOP BID [facility] Last Admin: 08/04/19 07:52 Dose: 1 applic Nystatin (Nystatin Crm) 1 gm TOP Q12HR [facility] Last Admin: 08/09/19 07:36 Dose: 1 applic Polyethylene Glycol (Miralax) 238 gm PO ONETIME ONE Stop: 09/22/19 12:01 Last Admin: 09/22/19 11:36 Dose: 238 gram Potassium Chloride (Potassium Chloride Solution) 40 meq PO TID@08,14,20 [facility] Last Admin: 08/03/19 14:18 Dose: 40 meq Potassium Chloride (Klor-Con M20) 40 meq PO TID [facility] Last Admin: 12/21/19 11:06 Dose: 40 meq - Exam Quality Assessment: Supplemental Oxygen, DVT Prophylaxis. No: Urine Catheter, Skin Breakdown General: Alert, Oriented, Cooperative, No Acute Distress HEENT: Pupils Equal, Pupils Reactive, EOMI, Mucous Membr. Moist/[place]. No: Scleral Icterus Neck: Supple, No JVD, No Thyromegaly, +2 Carotid Pulse wo Bruit. No: Lymphadenopathy Lungs: Normal Respiratory Effort, Rales (Mild bilateral basilarstable). No: Rhonchi, Rub, Wheezing Cardiovascular: Regular Rate, Regular Rhythm, No Murmurs. No: Gallops, Rubs GI/Abdominal Exam: Normal Bowel Sounds, Soft, Non-Tender, No Organomegaly, No Distention, No Abnormal Bruit, No Mass, Other (Obese). No: Guarding (Female) Exam: Deferred Back Exam: Normal Inspection, Full Range of Motion. No: CVA Tenderness (L), CVA Tenderness (R), Muscle Spasm Extremities: Normal Range of Motion, Non-Tender, Normal Capillary Refill, Pedal Edema (Stable bilateral lymphedema of the lower extremities with compression Xavier wraps in place). No: Lurdes's Sign Peripheral Pulses: 2+: Radial (L), Radial (R), Dorsalis Pedis (L), Dorsalis Pedis (R) Skin: Warm, Dry, Intact. No: Ecchymosis Neurological: No New Focal Deficit Psy/Mental Status: Alert, Anxious (Borderline), Depressed (Mild to moderate). No: Agitated, Hallucinations, Withdrawal Symptoms Sepsis Event Note - Evaluation Sepsis Screening Result: No Definite Risk - Focused Exam Vital Signs: Vital Signs Temp Pulse Resp BP Pulse Ox 02/29/20 08:00 35.8 C L 66 20 129/71 96 Date Exam was Performed: 02/29/20 Time Exam was Performed: 14:24 - Problem List & Annotations (1) Steinert myotonic dystrophy syndrome SNOMED Code(s): 142168708 Code(s): G71.11 - MYOTONIC MUSCULAR DYSTROPHY Status: Chronic Priority: Medium Current Visit: Yes Annotation/Comment:: Stable by history and today' s exam. Physical therapy in effect. Continue current medical therapy. (2) CHF, Congestive heart failure SNOMED Code(s): 24200258 Code(s): I50.9 - HEART FAILURE, UNSPECIFIED Status: Chronic Priority: Medium Current Visit: Yes Annotation/Comment:: Note previous progressive nonspecific bilateral lower lobe atelectasis versus nonspecific changes, right greater than left, with CT scan of the chest port from 12/29/19 was once again reviewed with evidence of atelectasis and mild pleural effusions consistent with CHF. No significant CHF by clinical exam today. Repeat blood work in 2 months. Despite stable lateral wall cardiac ischemia by EKG since April 2019 difficult to assess secondary to her bifascicular bundle-branch block. No chest pain or anginal type symptoms. Stable dependent edema the patient intentionally losing 8 kg the last 4 months by occasionally skipping her lunch meal. Note previous dietary noncompliance Previous discontinuation of high protein Glucerna supplements as snacks secondary to her weight gain. Dietary consultation in effect. Activity level is overall low. An echocardiogram has also been performed on 12/28/19 with excellent ejection fraction of 5060 percent.The patient's CODE STATUS was previously addressed per request from the nursing staff with the patient wishing to continue to be a FULL CODE. Continue to observe closely. Note previous history of PVCs, complete right bundle branch block/bifascicular bundle-branch block, first-degree AV block, severe dyslipidemia hypokalemia, hypophosphatemia, and hyponatremia. Continue to observe for now with no further change in medical therapy. Further cardiology workup and/or consultation depending on her clinical course. Note Increase of her Lasix therapy, etc. on 12/21 with overall good clinical results. (3) C. difficile colitis SNOMED Code(s): 356554751 Code(s): A04.72 - ENTEROCOLITIS D/T CLOSTRIDIUM DIFFICILE, NOT SPCF RECUR Status: Chronic Priority: Medium Current Visit: Yes Onset Date: Annotation/Comment:: No return of her previous diarrhea, etc. Colonoscopy completed on 09/23/19 with excision of a tubular adenoma from the ascending colon. No apparent evidence of significant colitis by this procedure, however I could not find any record of serial biopsies as previously requested. The patient has since been placed off of isolation precautions. Her diarrhea has not returned. 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 Her room has been properly disinfected. Patient has been treated previously with multiple courses of Flagyl and vancomycin with the patient likely a chronic carrier. Central laboratories previously refused repeat stool C. difficile analysis since the patient no longer had diarrhea and that this evaluation may remain positive for several months. This issue was previously brought up in medical staff for further review and discussion with no further follow-up at this time. Continue to observe closely with repeat antibiotic treatment, stool transplant, etc. depending on her clinical course. (4) Gastroesophageal reflux disease SNOMED Code(s): 543206377 Code(s): K21.9 - GASTRO-ESOPHAGEAL REFLUX DISEASE WITHOUT ESOPHAGITIS Status: Acute Priority: Medium Current Visit: Yes Annotation/Comment:: No abdominal complaints at this time in spite of occasionally required ibuprofen therapy. Tums has been started as GI prophylaxis with overall good results. Otherwise stable by history despite discontinuation of Reglan therapy. No other GI medications required at this time with previous discontinuation of Prilosec, etc. secondary to her recurrent C. difficile colitis. (5) COPD (chronic obstructive pulmonary disease) SNOMED Code(s): 46170705 Code(s): J44.9 - CHRONIC OBSTRUCTIVE PULMONARY DISEASE, UNSPECIFIED Status : Chronic Priority: Medium Current Visit: Yes Qualifiers: COPD type: emphysema Emphysema type: panlobular Qualified Code(s): J43.1 - Panlobular emphysema Annotation/Comment:: As above. O2 dependent COPD stable by history with no bronchitic symptoms at this time. Continue current medical therapy. Patient does have a previous history of distant postoperative respiratory distress, although no complications after previous dental surgery. (6) Hyperglycemia SNOMED Code(s): 67997993 Code(s): R73.9 - HYPERGLYCEMIA, UNSPECIFIED Status: Chronic Priority: Medium Current Visit: Yes Onset Date: 06/29/15 Annotation/Comment:: Hemoglobin A1c normal at 5.2% on 12/28. Dietary consultation is in effect as above. (7) Hyperlipidemia SNOMED Code(s): 04267014 Code(s): E78.5 - HYPERLIPIDEMIA, UNSPECIFIED Status: Chronic Priority: Medium Current Visit: Yes Annotation/Comment:: Lipid Panel in April 2019 showed mild persistent hypertriglyceridemia. Previous history of severe dyslipidemia with aggressive medical therapy at this time. Dietary compliance has improved with intentional weight loss as above. No change in medical therapy for now with previous history of CPK elevation. (8) Hypothyroidism SNOMED Code(s): 91909809 Code(s): E03.9 - HYPOTHYROIDISM, UNSPECIFIED Status: Chronic Priority: Medium Current Visit: Yes Annotation/Comment:: TSH normal in April 2019. No other thyroid type symptoms. (9) Mixed anxiety and depressive disorder SNOMED Code(s): 090204910 Code(s): F41.8 - OTHER SPECIFIED ANXIETY DISORDERS Status: Chronic Priority: Medium Current Visit: Yes Annotation/Comment:: Previous worsening of her anxiety depression disorder with Wellbutrin SR therapy increased on . By my clinical evaluation her symptoms have improved since that time, although she still needs to be watched closely by nursing staff, etc.. Patient is still relatively active with physical therapy, however she is still often alone in her room. The patient was once again encouraged to become more active with social activities, etc. with nursing staff also encouraged to help the patient be more interactive. (10) Orthostatic hypotension SNOMED Code(s): 65501728 Code(s): I95.1 - ORTHOSTATIC HYPOTENSION Status: Chronic Priority: Medium Current Visit: Yes Annotation/Comment:: No recent falls or injuries. Previous problems with recurrent falls including right ankle fracture on . The patient and nursing staff are continuing strict compliance with previously ordered fall precautions, walker use, etc. Continue activity restrictions as per physical therapy, and occupational therapy. Continue current Florinef with otherwise relatively stable decreased systolic blood pressures. No change in therapy. (11) Tardive dyskinesia SNOMED Code(s): 159390373 Code(s): G24.01 - DRUG INDUCED SUBACUTE DYSKINESIA Status: Chronic Priority: Medium Current Visit: Yes Annotation/Comment:: Stable by history. 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 Neurological status is otherwise stable.. Note that patient does have complete dentures uppers and lowers, which does tend to aggravate her problem. No significant clinical relevance at this time with no change in medical therapy for now. (12) Hypoalbuminemia SNOMED Code(s): 468752553 Code(s): E88.09 - OTH DISORDERS OF PLASMA-PROTEIN METABOLISM, NEC Status: Chronic Priority: Medium Current Visit: Yes Annotation/Comment:: Glucerna high-protein has been discontinued per recommendations from dietitian secondary to persistent weight gain. Continue high-protein diet as above. Observe for now. Her albumin and total protein are still decreased today. (13) Macrocytosis SNOMED Code(s): 774626262 Code(s): D75.89 - OTHER SPECIFIED DISEASES OF BLOOD AND BLOOD-FORMING ORGANS Status: Chronic Priority: High Current Visit: Yes Onset Date: 06/29/15 Annotation/Comment:: No anemia with persistent macrocytosis however normal vitamin B 12 and folic acid levels previously Mild intermittent thrombocytopenia , which is currently nonproblematic. Continue routine blood work and vitamin B- 12 supplementation. (14) Osteoarthritis SNOMED Code(s): 226372119 Code(s): M19.90 - UNSPECIFIED OSTEOARTHRITIS, UNSPECIFIED SITE Status: Chronic Priority: Medium Current Visit: Yes Annotation/Comment:: No complaints today with previous intermittent mild generalized arthralgias, however nonproblematic at this time with the patient nonsymptomatic despite discontinuation of Ultram. PT in effect as above. Note status post bilateral ankle ORIF secondary to fractures. Previous recurrent falls in February 2019 have improved with no recent significant falls or injuries. (15) Peptic reflux disease SNOMED Code(s): 024235036 Code(s): K21.9 - GASTRO-ESOPHAGEAL REFLUX DISEASE WITHOUT ESOPHAGITIS Status: Chronic Priority: Medium Current Visit: Yes Annotation/Comment:: Stable by history - Problem List Review Problem List Initiated/Reviewed/Updated: Yes - Assessment Assessment:: As above - Plan Plan:: As above. Patient is also recertified for an additional 2 months of swing bed care with chronic placement secondary to multiple illnesses as above. Yearly Blood work, etc. to be repeated in 2 months at time of next rounds.
[2020-02-29] MEDS: Levothyroxine Sodium 137 MCG TABLET PO SCH (19:20)
[2020-02-29] MEDS: Simvastatin 10 MG Tab PO SCH (19:21)
[2020-02-29] MEDS: BUPROPION XL 300MG PO SCH (19:21)
[2020-02-29] MEDS: Aluminum Hydroxide/Magnesium Hydroxide/Simethicone Susp 30 ML Cup PO PRN (19:21)
[2020-02-29] MEDS: Menthol/Methyl Salicylate 85 GM Tube TOP PRN (19:22)
[2020-03-01] MEDS: Citalopram 20 MG Tab PO SCH (08:24)
[2020-03-01] MEDS: Albuterol/Ipratropium 3.0-0.5 MG/3 ML Neb Soln NEB SCH ×4 (08:25→19:25)
[2020-03-01] MEDS: Niacin 500 MG Tab PO SCH ×2 (08:25→17:32)
[2020-03-01] MEDS: Furosemide 20 MG Tab PO SCH ×2 (08:25→17:32)
[2020-03-01] MEDS: Potassium Chloride 20 MEQ Tab.ER PO SCH ×4 (08:25→19:26)
[2020-03-01] MEDS: Fludrocortisone 0.1 MG Tab PO SCH ×2 (08:25→19:26)
[2020-03-01] MEDS: Cyanocobalamin (Vitamin B12) 1,000 MCG Tab PO SCH (08:26)
[2020-03-01] MEDS: Calcium Carbonate 750 MG Tab.Chew PO SCH (08:26)
[2020-03-01] MEDS: Cholecalciferol (Vitamin D3) 25 MCG Tab PO SCH (08:27)
[2020-03-01] MEDS: Acetaminophen 325 MG Tab PO PRN (08:28)
[2020-03-01] MEDS: Levothyroxine Sodium 137 MCG TABLET PO SCH (19:26)
[2020-03-01] MEDS: BUPROPION XL 300MG PO SCH (19:26)
[2020-03-01] MEDS: Simvastatin 10 MG Tab PO SCH (19:27)
[2020-03-01] MEDS: Menthol/Methyl Salicylate 85 GM Tube TOP PRN (19:27)
[2020-03-01] MEDS: IBUPROFEN 600 MG PO PRN (19:29)
[2020-03-01] MEDS: Aluminum Hydroxide/Magnesium Hydroxide/Simethicone Susp 30 ML Cup PO PRN (19:39)
[2020-03-02] MEDS: Acetaminophen 325 MG Tab PO PRN ×2 (03:11→19:37)
[2020-03-02] MEDS: Citalopram 20 MG Tab PO SCH (08:35)
[2020-03-02] MEDS: Fludrocortisone 0.1 MG Tab PO SCH ×2 (08:35→19:27)
[2020-03-02] MEDS: Albuterol/Ipratropium 3.0-0.5 MG/3 ML Neb Soln NEB SCH ×4 (08:35→19:24)
[2020-03-02] MEDS: Furosemide 20 MG Tab PO SCH ×2 (08:36→17:42)
[2020-03-02] MEDS: Potassium Chloride 20 MEQ Tab.ER PO SCH ×4 (08:36→19:27)
[2020-03-02] MEDS: Calcium Carbonate 750 MG Tab.Chew PO SCH (08:37)
[2020-03-02] MEDS: Cholecalciferol (Vitamin D3) 25 MCG Tab PO SCH (08:37)
[2020-03-02] MEDS: Cyanocobalamin (Vitamin B12) 1,000 MCG Tab PO SCH (08:37)
[2020-03-02] MEDS: Niacin 500 MG Tab PO SCH ×2 (08:37→17:42)
[2020-03-02] MEDS: BUPROPION XL 300MG PO SCH (19:28)
[2020-03-02] MEDS: Levothyroxine Sodium 137 MCG TABLET PO SCH (19:28)
[2020-03-02] MEDS: Simvastatin 10 MG Tab PO SCH (19:28)
[2020-03-03] MEDS: Potassium Chloride 20 MEQ Tab.ER PO SCH ×4 (08:18→19:16)
[2020-03-03] MEDS: Furosemide 20 MG Tab PO SCH ×2 (08:18→17:52)
[2020-03-03] MEDS: Albuterol/Ipratropium 3.0-0.5 MG/3 ML Neb Soln NEB SCH ×4 (08:19→19:15)
[2020-03-03] MEDS: Citalopram 20 MG Tab PO SCH (08:19)
[2020-03-03] MEDS: Fludrocortisone 0.1 MG Tab PO SCH ×2 (08:19→19:16)
[2020-03-03] MEDS: Calcium Carbonate 750 MG Tab.Chew PO SCH (08:19)
[2020-03-03] MEDS: Cholecalciferol (Vitamin D3) 25 MCG Tab PO SCH (08:20)
[2020-03-03] MEDS: Niacin 500 MG Tab PO SCH ×2 (08:20→17:52)
[2020-03-03] MEDS: Cyanocobalamin (Vitamin B12) 1,000 MCG Tab PO SCH (08:24)
[2020-03-03] MEDS: Simvastatin 10 MG Tab PO SCH (19:16)
[2020-03-03] MEDS: Levothyroxine Sodium 137 MCG TABLET PO SCH (19:16)
[2020-03-03] MEDS: BUPROPION XL 300MG PO SCH (19:16)
[2020-03-03] MEDS: Acetaminophen 325 MG Tab PO PRN (19:18)
[2020-03-04] MEDS: Albuterol/Ipratropium 3.0-0.5 MG/3 ML Neb Soln NEB SCH ×4 (07:29→19:17)
[2020-03-04] MEDS: Citalopram 20 MG Tab PO SCH (07:29)
[2020-03-04] MEDS: Potassium Chloride 20 MEQ Tab.ER PO SCH ×4 (07:30→19:19)
[2020-03-04] MEDS: Fludrocortisone 0.1 MG Tab PO SCH ×2 (07:30→19:19)
[2020-03-04] MEDS: Furosemide 20 MG Tab PO SCH ×2 (07:30→17:05)
[2020-03-04] MEDS: Niacin 500 MG Tab PO SCH ×2 (07:31→17:05)
[2020-03-04] MEDS: Calcium Carbonate 750 MG Tab.Chew PO SCH (07:31)
[2020-03-04] MEDS: Cholecalciferol (Vitamin D3) 25 MCG Tab PO SCH (07:31)
[2020-03-04] MEDS: Cyanocobalamin (Vitamin B12) 1,000 MCG Tab PO SCH (07:31)
[2020-03-04] MEDS: IBUPROFEN 600 MG PO PRN (07:32)
[2020-03-04] MEDS: Aluminum Hydroxide/Magnesium Hydroxide/Simethicone Susp 30 ML Cup PO PRN (08:30)
[2020-03-04] MEDS: Acetaminophen 325 MG Tab PO PRN (11:24)
[2020-03-04] MEDS: Levothyroxine Sodium 137 MCG TABLET PO SCH (19:19)
[2020-03-04] MEDS: BUPROPION XL 300MG PO SCH (19:20)
[2020-03-04] MEDS: Simvastatin 10 MG Tab PO SCH (19:20)
[2020-03-05] MEDS: Citalopram 20 MG Tab PO SCH (08:07)
[2020-03-05] MEDS: Fludrocortisone 0.1 MG Tab PO SCH ×2 (08:08→19:16)
[2020-03-05] MEDS: Furosemide 20 MG Tab PO SCH ×2 (08:08→17:23)
[2020-03-05] MEDS: Potassium Chloride 20 MEQ Tab.ER PO SCH ×4 (08:08→19:17)
[2020-03-05] MEDS: Acetaminophen 325 MG Tab PO PRN ×2 (08:09→19:20)
[2020-03-05] MEDS: Albuterol/Ipratropium 3.0-0.5 MG/3 ML Neb Soln NEB SCH ×4 (08:09→19:14)
[2020-03-05] MEDS: Niacin 500 MG Tab PO SCH ×2 (08:10→17:23)
[2020-03-05] MEDS: Cyanocobalamin (Vitamin B12) 1,000 MCG Tab PO SCH (08:10)
[2020-03-05] MEDS: Calcium Carbonate 750 MG Tab.Chew PO SCH (08:10)
[2020-03-05] MEDS: Cholecalciferol (Vitamin D3) 25 MCG Tab PO SCH (08:11)
[2020-03-05] MEDS: Simvastatin 10 MG Tab PO SCH (19:17)
[2020-03-05] MEDS: Levothyroxine Sodium 137 MCG TABLET PO SCH (19:17)
[2020-03-05] MEDS: BUPROPION XL 300MG PO SCH (19:17)
[2020-03-06] MEDS: Citalopram 20 MG Tab PO SCH (07:51)
[2020-03-06] MEDS: Fludrocortisone 0.1 MG Tab PO SCH ×2 (07:52→19:27)
[2020-03-06] MEDS: Furosemide 20 MG Tab PO SCH ×2 (07:52→17:32)
[2020-03-06] MEDS: Albuterol/Ipratropium 3.0-0.5 MG/3 ML Neb Soln NEB SCH ×4 (07:52→19:24)
[2020-03-06] MEDS: Potassium Chloride 20 MEQ Tab.ER PO SCH ×4 (07:52→19:27)
[2020-03-06] MEDS: Calcium Carbonate 750 MG Tab.Chew PO SCH (07:54)
[2020-03-06] MEDS: Niacin 500 MG Tab PO SCH ×2 (07:54→17:33)
[2020-03-06] MEDS: Cholecalciferol (Vitamin D3) 25 MCG Tab PO SCH (07:55)
[2020-03-06] MEDS: Cyanocobalamin (Vitamin B12) 1,000 MCG Tab PO SCH (07:55)
[2020-03-06] MEDS: Acetaminophen 325 MG Tab PO PRN ×2 (07:59→19:38)
[2020-03-06] MEDS: Aluminum Hydroxide/Magnesium Hydroxide/Simethicone Susp 30 ML Cup PO PRN (09:11)
[2020-03-06] MEDS: BUPROPION XL 300MG PO SCH (19:28)
[2020-03-06] MEDS: Simvastatin 10 MG Tab PO SCH (19:28)
[2020-03-06] MEDS: Levothyroxine Sodium 137 MCG TABLET PO SCH (19:28)
[2020-03-07] MEDS: Citalopram 20 MG Tab PO SCH (08:14)
[2020-03-07] MEDS: Albuterol/Ipratropium 3.0-0.5 MG/3 ML Neb Soln NEB SCH ×4 (08:14→19:48)
[2020-03-07] MEDS: Potassium Chloride 20 MEQ Tab.ER PO SCH ×4 (08:15→19:48)
[2020-03-07] MEDS: Fludrocortisone 0.1 MG Tab PO SCH ×2 (08:15→19:48)
[2020-03-07] MEDS: Niacin 500 MG Tab PO SCH ×2 (08:16→17:39)
[2020-03-07] MEDS: Calcium Carbonate 750 MG Tab.Chew PO SCH (08:16)
[2020-03-07] MEDS: Furosemide 20 MG Tab PO SCH ×2 (08:16→17:39)
[2020-03-07] MEDS: Cyanocobalamin (Vitamin B12) 1,000 MCG Tab PO SCH (08:17)
[2020-03-07] MEDS: Cholecalciferol (Vitamin D3) 25 MCG Tab PO SCH (08:18)
[2020-03-07] MEDS: Acetaminophen 325 MG Tab PO PRN ×2 (08:22→17:40)
[2020-03-07] MEDS: Aluminum Hydroxide/Magnesium Hydroxide/Simethicone Susp 30 ML Cup PO PRN ×2 (08:30→19:57)
[2020-03-07] MEDS: Levothyroxine Sodium 137 MCG TABLET PO SCH (19:49)
[2020-03-07] MEDS: Menthol/Methyl Salicylate 85 GM Tube TOP PRN (19:49)
[2020-03-07] MEDS: BUPROPION XL 300MG PO SCH (19:49)
[2020-03-07] MEDS: Simvastatin 10 MG Tab PO SCH (19:49)
[2020-03-08] MEDS: Citalopram 20 MG Tab PO SCH (09:17)
[2020-03-08] MEDS: Fludrocortisone 0.1 MG Tab PO SCH ×2 (09:17→19:11)
[2020-03-08] MEDS: Potassium Chloride 20 MEQ Tab.ER PO SCH ×4 (09:18→19:12)
[2020-03-08] MEDS: Furosemide 20 MG Tab PO SCH ×2 (09:18→17:27)
[2020-03-08] MEDS: Niacin 500 MG Tab PO SCH ×2 (09:19→17:27)
[2020-03-08] MEDS: Calcium Carbonate 750 MG Tab.Chew PO SCH (09:20)
[2020-03-08] MEDS: Cyanocobalamin (Vitamin B12) 1,000 MCG Tab PO SCH (09:20)
[2020-03-08] MEDS: Cholecalciferol (Vitamin D3) 25 MCG Tab PO SCH (09:20)
[2020-03-08] MEDS: Albuterol/Ipratropium 3.0-0.5 MG/3 ML Neb Soln NEB SCH ×4 (09:21→19:11)
[2020-03-08] MEDS: Aluminum Hydroxide/Magnesium Hydroxide/Simethicone Susp 30 ML Cup PO PRN (10:26)
[2020-03-08] MEDS: Acetaminophen 325 MG Tab PO PRN (17:28)
[2020-03-08] MEDS: Simvastatin 10 MG Tab PO SCH (19:12)
[2020-03-08] MEDS: BUPROPION XL 300MG PO SCH (19:12)
[2020-03-08] MEDS: Levothyroxine Sodium 137 MCG TABLET PO SCH (19:12)
[2020-03-09] MEDS: Acetaminophen 325 MG Tab PO PRN ×2 (03:09→08:29)
[2020-03-09] MEDS: Citalopram 20 MG Tab PO SCH (08:25)
[2020-03-09] MEDS: Albuterol/Ipratropium 3.0-0.5 MG/3 ML Neb Soln NEB SCH ×4 (08:25→19:24)
[2020-03-09] MEDS: Fludrocortisone 0.1 MG Tab PO SCH ×2 (08:26→19:24)
[2020-03-09] MEDS: Potassium Chloride 20 MEQ Tab.ER PO SCH ×4 (08:26→19:25)
[2020-03-09] MEDS: Furosemide 20 MG Tab PO SCH ×2 (08:26→17:50)
[2020-03-09] MEDS: Calcium Carbonate 750 MG Tab.Chew PO SCH (08:27)
[2020-03-09] MEDS: Niacin 500 MG Tab PO SCH ×2 (08:27→17:51)
[2020-03-09] MEDS: Cholecalciferol (Vitamin D3) 25 MCG Tab PO SCH (08:28)
[2020-03-09] MEDS: Cyanocobalamin (Vitamin B12) 1,000 MCG Tab PO SCH (08:28)
[2020-03-09] MEDS: Levothyroxine Sodium 137 MCG TABLET PO SCH (19:25)
[2020-03-09] MEDS: BUPROPION XL 300MG PO SCH (19:25)
[2020-03-09] MEDS: Simvastatin 10 MG Tab PO SCH (19:26)
[2020-03-10] MEDS: Citalopram 20 MG Tab PO SCH (08:12)
[2020-03-10] MEDS: Albuterol/Ipratropium 3.0-0.5 MG/3 ML Neb Soln NEB SCH ×4 (08:12→19:35)
[2020-03-10] MEDS: Furosemide 20 MG Tab PO SCH ×2 (08:13→17:29)
[2020-03-10] MEDS: Fludrocortisone 0.1 MG Tab PO SCH ×2 (08:13→19:35)
[2020-03-10] MEDS: Potassium Chloride 20 MEQ Tab.ER PO SCH ×4 (08:14→19:35)
[2020-03-10] MEDS: Niacin 500 MG Tab PO SCH ×2 (08:15→17:29)
[2020-03-10] MEDS: Calcium Carbonate 750 MG Tab.Chew PO SCH (08:16)
[2020-03-10] MEDS: Cyanocobalamin (Vitamin B12) 1,000 MCG Tab PO SCH (08:16)
[2020-03-10] MEDS: Cholecalciferol (Vitamin D3) 25 MCG Tab PO SCH (08:17)
[2020-03-10] MEDS: Acetaminophen 325 MG Tab PO PRN ×2 (08:18→16:12)
[2020-03-10] MEDS: Simvastatin 10 MG Tab PO SCH (19:36)
[2020-03-10] MEDS: Levothyroxine Sodium 137 MCG TABLET PO SCH (19:36)
[2020-03-10] MEDS: BUPROPION XL 300MG PO SCH (19:36)
[2020-03-10] MEDS: Aluminum Hydroxide/Magnesium Hydroxide/Simethicone Susp 30 ML Cup PO PRN (19:37)
[2020-03-11] MEDS: Furosemide 20 MG Tab PO SCH ×2 (08:44→17:06)
[2020-03-11] MEDS: Fludrocortisone 0.1 MG Tab PO SCH ×2 (08:44→19:32)
[2020-03-11] MEDS: Albuterol/Ipratropium 3.0-0.5 MG/3 ML Neb Soln NEB SCH ×4 (08:44→19:32)
[2020-03-11] MEDS: Citalopram 20 MG Tab PO SCH (08:44)
[2020-03-11] MEDS: Potassium Chloride 20 MEQ Tab.ER PO SCH ×4 (08:44→19:32)
[2020-03-11] MEDS: Cyanocobalamin (Vitamin B12) 1,000 MCG Tab PO SCH (08:45)
[2020-03-11] MEDS: Niacin 500 MG Tab PO SCH ×2 (08:45→17:06)
[2020-03-11] MEDS: Cholecalciferol (Vitamin D3) 25 MCG Tab PO SCH (08:45)
[2020-03-11] MEDS: Calcium Carbonate 750 MG Tab.Chew PO SCH (08:45)
[2020-03-11] MEDS: Aluminum Hydroxide/Magnesium Hydroxide/Simethicone Susp 30 ML Cup PO PRN ×2 (08:46→19:34)
[2020-03-11] MEDS: Acetaminophen 325 MG Tab PO PRN (11:55)
[2020-03-11] MEDS: IBUPROFEN 600 MG PO PRN (17:06)
[2020-03-11] MEDS: Levothyroxine Sodium 137 MCG TABLET PO SCH (19:33)
[2020-03-11] MEDS: BUPROPION XL 300MG PO SCH (19:33)
[2020-03-11] MEDS: Simvastatin 10 MG Tab PO SCH (19:33)
[2020-03-12] MEDS: Acetaminophen 325 MG Tab PO PRN ×3 (04:15→15:40)
[2020-03-12] MEDS: Fludrocortisone 0.1 MG Tab PO SCH ×2 (08:19→19:51)
[2020-03-12] MEDS: Furosemide 20 MG Tab PO SCH ×2 (08:19→17:40)
[2020-03-12] MEDS: Citalopram 20 MG Tab PO SCH (08:19)
[2020-03-12] MEDS: Potassium Chloride 20 MEQ Tab.ER PO SCH ×4 (08:19→19:51)
[2020-03-12] MEDS: Albuterol/Ipratropium 3.0-0.5 MG/3 ML Neb Soln NEB SCH ×4 (08:20→19:51)
[2020-03-12] MEDS: Calcium Carbonate 750 MG Tab.Chew PO SCH (08:21)
[2020-03-12] MEDS: Cyanocobalamin (Vitamin B12) 1,000 MCG Tab PO SCH (08:21)
[2020-03-12] MEDS: Niacin 500 MG Tab PO SCH ×2 (08:21→17:40)
[2020-03-12] MEDS: Cholecalciferol (Vitamin D3) 25 MCG Tab PO SCH (08:22)
[2020-03-12] MEDS: Levothyroxine Sodium 137 MCG TABLET PO SCH (19:51)
[2020-03-12] MEDS: BUPROPION XL 300MG PO SCH (19:52)
[2020-03-12] MEDS: Simvastatin 10 MG Tab PO SCH (19:52)
[2020-03-13] MEDS: Citalopram 20 MG Tab PO SCH (08:31)
[2020-03-13] MEDS: Albuterol/Ipratropium 3.0-0.5 MG/3 ML Neb Soln NEB SCH ×4 (08:31→19:20)
[2020-03-13] MEDS: Furosemide 20 MG Tab PO SCH ×2 (08:32→17:37)
[2020-03-13] MEDS: Fludrocortisone 0.1 MG Tab PO SCH ×2 (08:32→19:21)
[2020-03-13] MEDS: Niacin 500 MG Tab PO SCH ×2 (08:33→17:37)
[2020-03-13] MEDS: Potassium Chloride 20 MEQ Tab.ER PO SCH ×4 (08:33→19:21)
[2020-03-13] MEDS: Calcium Carbonate 750 MG Tab.Chew PO SCH (08:34)
[2020-03-13] MEDS: Cyanocobalamin (Vitamin B12) 1,000 MCG Tab PO SCH (08:34)
[2020-03-13] MEDS: Cholecalciferol (Vitamin D3) 25 MCG Tab PO SCH (08:35)
[2020-03-13] MEDS: Acetaminophen 325 MG Tab PO PRN ×2 (08:36→19:27)
[2020-03-13] MEDS: Aluminum Hydroxide/Magnesium Hydroxide/Simethicone Susp 30 ML Cup PO PRN (08:45)
[2020-03-13] MEDS: Levothyroxine Sodium 137 MCG TABLET PO SCH (19:21)
[2020-03-13] MEDS: BUPROPION XL 300MG PO SCH (19:21)
[2020-03-13] MEDS: Simvastatin 10 MG Tab PO SCH (19:21)
[2020-03-14] MEDS: IBUPROFEN 600 MG PO PRN (04:27)
[2020-03-14] MEDS: Albuterol/Ipratropium 3.0-0.5 MG/3 ML Neb Soln NEB SCH ×4 (08:16→19:24)
[2020-03-14] MEDS: Citalopram 20 MG Tab PO SCH (08:16)
[2020-03-14] MEDS: Fludrocortisone 0.1 MG Tab PO SCH ×2 (08:17→19:25)
[2020-03-14] MEDS: Potassium Chloride 20 MEQ Tab.ER PO SCH ×4 (08:17→19:25)
[2020-03-14] MEDS: Furosemide 20 MG Tab PO SCH ×2 (08:18→17:23)
[2020-03-14] MEDS: Niacin 500 MG Tab PO SCH ×2 (08:20→17:23)
[2020-03-14] MEDS: Calcium Carbonate 750 MG Tab.Chew PO SCH (08:20)
[2020-03-14] MEDS: Cholecalciferol (Vitamin D3) 25 MCG Tab PO SCH (08:21)
[2020-03-14] MEDS: Cyanocobalamin (Vitamin B12) 1,000 MCG Tab PO SCH (08:21)
[2020-03-14] MEDS: Acetaminophen 325 MG Tab PO PRN (08:24)
[2020-03-14] MEDS: Levothyroxine Sodium 137 MCG TABLET PO SCH (19:25)
[2020-03-14] MEDS: BUPROPION XL 300MG PO SCH (19:25)
[2020-03-14] MEDS: Simvastatin 10 MG Tab PO SCH (19:26)
[2020-03-14] MEDS: Menthol/Methyl Salicylate 85 GM Tube TOP PRN (19:31)
[2020-03-15] MEDS: Albuterol/Ipratropium 3.0-0.5 MG/3 ML Neb Soln NEB SCH ×4 (08:19→19:23)
[2020-03-15] MEDS: Citalopram 20 MG Tab PO SCH (08:19)
[2020-03-15] MEDS: Fludrocortisone 0.1 MG Tab PO SCH ×2 (08:20→19:23)
[2020-03-15] MEDS: Potassium Chloride 20 MEQ Tab.ER PO SCH ×4 (08:20→19:23)
[2020-03-15] MEDS: Furosemide 20 MG Tab PO SCH ×2 (08:20→17:37)
[2020-03-15] MEDS: Calcium Carbonate 750 MG Tab.Chew PO SCH (08:21)
[2020-03-15] MEDS: Niacin 500 MG Tab PO SCH ×2 (08:21→17:38)
[2020-03-15] MEDS: Cholecalciferol (Vitamin D3) 25 MCG Tab PO SCH (08:22)
[2020-03-15] MEDS: Acetaminophen 325 MG Tab PO PRN (08:22)
[2020-03-15] MEDS: Cyanocobalamin (Vitamin B12) 1,000 MCG Tab PO SCH (08:22)
[2020-03-15] MEDS: BUPROPION XL 300MG PO SCH (19:24)
[2020-03-15] MEDS: Levothyroxine Sodium 137 MCG TABLET PO SCH (19:24)
[2020-03-15] MEDS: Simvastatin 10 MG Tab PO SCH (19:24)
[2020-03-15] MEDS: Aluminum Hydroxide/Magnesium Hydroxide/Simethicone Susp 30 ML Cup PO PRN (19:28)
[2020-03-16] MEDS: Acetaminophen 325 MG Tab PO PRN (02:20)
[2020-03-16] MEDS: Potassium Chloride 20 MEQ Tab.ER PO SCH ×4 (08:35→19:29)
[2020-03-16] MEDS: Furosemide 20 MG Tab PO SCH ×2 (08:35→17:41)
[2020-03-16] MEDS: Fludrocortisone 0.1 MG Tab PO SCH ×2 (08:35→19:29)
[2020-03-16] MEDS: Calcium Carbonate 750 MG Tab.Chew PO SCH (08:36)
[2020-03-16] MEDS: Albuterol/Ipratropium 3.0-0.5 MG/3 ML Neb Soln NEB SCH ×4 (08:36→19:28)
[2020-03-16] MEDS: Citalopram 20 MG Tab PO SCH (08:36)
[2020-03-16] MEDS: Niacin 500 MG Tab PO SCH ×2 (08:36→17:41)
[2020-03-16] MEDS: Cyanocobalamin (Vitamin B12) 1,000 MCG Tab PO SCH (08:37)
[2020-03-16] MEDS: IBUPROFEN 600 MG PO PRN (08:37)
[2020-03-16] MEDS: Cholecalciferol (Vitamin D3) 25 MCG Tab PO SCH (08:37)
[2020-03-16] MEDS: BUPROPION XL 300MG PO SCH (19:30)
[2020-03-16] MEDS: Simvastatin 10 MG Tab PO SCH (19:30)
[2020-03-16] MEDS: Levothyroxine Sodium 137 MCG TABLET PO SCH (19:30)
[2020-03-17] MEDS: Potassium Chloride 20 MEQ Tab.ER PO SCH ×4 (08:04→19:25)
[2020-03-17] MEDS: Fludrocortisone 0.1 MG Tab PO SCH ×2 (08:04→19:25)
[2020-03-17] MEDS: Citalopram 20 MG Tab PO SCH (08:04)
[2020-03-17] MEDS: Furosemide 20 MG Tab PO SCH ×2 (08:04→17:22)
[2020-03-17] MEDS: Cyanocobalamin (Vitamin B12) 1,000 MCG Tab PO SCH (08:05)
[2020-03-17] MEDS: Niacin 500 MG Tab PO SCH ×2 (08:05→17:22)
[2020-03-17] MEDS: Calcium Carbonate 750 MG Tab.Chew PO SCH (08:05)
[2020-03-17] MEDS: Cholecalciferol (Vitamin D3) 25 MCG Tab PO SCH (08:06)
[2020-03-17] MEDS: Albuterol/Ipratropium 3.0-0.5 MG/3 ML Neb Soln NEB SCH ×4 (08:06→19:24)
[2020-03-17] MEDS: Acetaminophen 325 MG Tab PO PRN (17:23)
[2020-03-17] MEDS: Simvastatin 10 MG Tab PO SCH (19:26)
[2020-03-17] MEDS: BUPROPION XL 300MG PO SCH (19:26)
[2020-03-17] MEDS: Levothyroxine Sodium 137 MCG TABLET PO SCH (19:26)
[2020-03-18] MEDS: Citalopram 20 MG Tab PO SCH (08:27)
[2020-03-18] MEDS: Furosemide 20 MG Tab PO SCH ×2 (08:27→17:55)
[2020-03-18] MEDS: Fludrocortisone 0.1 MG Tab PO SCH ×2 (08:27→19:23)
[2020-03-18] MEDS: Potassium Chloride 20 MEQ Tab.ER PO SCH ×4 (08:28→19:23)
[2020-03-18] MEDS: Calcium Carbonate 750 MG Tab.Chew PO SCH (08:29)
[2020-03-18] MEDS: Albuterol/Ipratropium 3.0-0.5 MG/3 ML Neb Soln NEB SCH ×4 (08:29→19:22)
[2020-03-18] MEDS: Niacin 500 MG Tab PO SCH ×2 (08:29→17:55)
[2020-03-18] MEDS: Cyanocobalamin (Vitamin B12) 1,000 MCG Tab PO SCH (08:30)
[2020-03-18] MEDS: Cholecalciferol (Vitamin D3) 25 MCG Tab PO SCH (08:30)
[2020-03-18] MEDS: Aluminum Hydroxide/Magnesium Hydroxide/Simethicone Susp 30 ML Cup PO PRN (09:29)
[2020-03-18] MEDS: Acetaminophen 325 MG Tab PO PRN (17:55)
[2020-03-18] MEDS: BUPROPION XL 300MG PO SCH (19:24)
[2020-03-18] MEDS: Levothyroxine Sodium 137 MCG TABLET PO SCH (19:24)
[2020-03-18] MEDS: Simvastatin 10 MG Tab PO SCH (19:25)
[2020-03-19] MEDS: Fludrocortisone 0.1 MG Tab PO SCH ×2 (08:03→19:42)
[2020-03-19] MEDS: Furosemide 20 MG Tab PO SCH ×2 (08:03→17:13)
[2020-03-19] MEDS: Citalopram 20 MG Tab PO SCH (08:03)
[2020-03-19] MEDS: Potassium Chloride 20 MEQ Tab.ER PO SCH ×4 (08:04→19:42)
[2020-03-19] MEDS: Cholecalciferol (Vitamin D3) 25 MCG Tab PO SCH (08:05)
[2020-03-19] MEDS: Calcium Carbonate 750 MG Tab.Chew PO SCH (08:05)
[2020-03-19] MEDS: Cyanocobalamin (Vitamin B12) 1,000 MCG Tab PO SCH (08:05)
[2020-03-19] MEDS: Niacin 500 MG Tab PO SCH ×2 (08:05→17:14)
[2020-03-19] MEDS: IBUPROFEN 600 MG PO PRN ×2 (08:06→17:14)
[2020-03-19] MEDS: Albuterol/Ipratropium 3.0-0.5 MG/3 ML Neb Soln NEB SCH ×4 (08:06→19:40)
[2020-03-19] MEDS: Levothyroxine Sodium 137 MCG TABLET PO SCH (19:43)
[2020-03-19] MEDS: Simvastatin 10 MG Tab PO SCH (19:43)
[2020-03-19] MEDS: BUPROPION XL 300MG PO SCH (19:43)
[2020-03-20] MEDS: Albuterol/Ipratropium 3.0-0.5 MG/3 ML Neb Soln NEB SCH ×4 (07:41→19:39)
[2020-03-20] MEDS: Potassium Chloride 20 MEQ Tab.ER PO SCH ×4 (07:41→19:40)
[2020-03-20] MEDS: Fludrocortisone 0.1 MG Tab PO SCH ×2 (07:41→19:40)
[2020-03-20] MEDS: Furosemide 20 MG Tab PO SCH ×2 (07:41→17:10)
[2020-03-20] MEDS: Citalopram 20 MG Tab PO SCH (07:41)
[2020-03-20] MEDS: Cyanocobalamin (Vitamin B12) 1,000 MCG Tab PO SCH (07:42)
[2020-03-20] MEDS: Calcium Carbonate 750 MG Tab.Chew PO SCH (07:42)
[2020-03-20] MEDS: Niacin 500 MG Tab PO SCH ×2 (07:42→17:11)
[2020-03-20] MEDS: Cholecalciferol (Vitamin D3) 25 MCG Tab PO SCH (07:42)
[2020-03-20] MEDS: IBUPROFEN 600 MG PO PRN ×2 (07:43→17:11)
[2020-03-20] MEDS: Acetaminophen 325 MG Tab PO PRN (11:19)
[2020-03-20] MEDS: BUPROPION XL 300MG PO SCH (19:40)
[2020-03-20] MEDS: Simvastatin 10 MG Tab PO SCH (19:40)
[2020-03-20] MEDS: Levothyroxine Sodium 137 MCG TABLET PO SCH (19:40)
[2020-03-21] MEDS: Aluminum Hydroxide/Magnesium Hydroxide/Simethicone Susp 30 ML Cup PO PRN ×3 (03:57→19:25)
[2020-03-21] MEDS: Acetaminophen 325 MG Tab PO PRN ×2 (03:58→19:26)
[2020-03-21] MEDS: IBUPROFEN 600 MG PO PRN (08:07)
[2020-03-21] MEDS: Albuterol/Ipratropium 3.0-0.5 MG/3 ML Neb Soln NEB SCH ×4 (08:08→19:22)
[2020-03-21] MEDS: Citalopram 20 MG Tab PO SCH (08:08)
[2020-03-21] MEDS: Fludrocortisone 0.1 MG Tab PO SCH ×2 (08:08→19:22)
[2020-03-21] MEDS: Potassium Chloride 20 MEQ Tab.ER PO SCH ×4 (08:08→19:23)
[2020-03-21] MEDS: Cyanocobalamin (Vitamin B12) 1,000 MCG Tab PO SCH (08:09)
[2020-03-21] MEDS: Niacin 500 MG Tab PO SCH ×2 (08:09→17:08)
[2020-03-21] MEDS: Calcium Carbonate 750 MG Tab.Chew PO SCH (08:09)
[2020-03-21] MEDS: Furosemide 20 MG Tab PO SCH ×2 (08:09→17:07)
[2020-03-21] MEDS: Cholecalciferol (Vitamin D3) 25 MCG Tab PO SCH (08:10)
[2020-03-21] MEDS: Levothyroxine Sodium 137 MCG TABLET PO SCH (19:23)
[2020-03-21] MEDS: BUPROPION XL 300MG PO SCH (19:23)
[2020-03-21] MEDS: Simvastatin 10 MG Tab PO SCH (19:24)
[2020-03-21] MEDS: Menthol/Methyl Salicylate 85 GM Tube TOP PRN (19:25)
[2020-03-22] MEDS: Fludrocortisone 0.1 MG Tab PO SCH ×2 (07:36→19:25)
[2020-03-22] MEDS: Potassium Chloride 20 MEQ Tab.ER PO SCH ×4 (07:36→19:25)
[2020-03-22] MEDS: Furosemide 20 MG Tab PO SCH ×2 (07:36→17:00)
[2020-03-22] MEDS: Citalopram 20 MG Tab PO SCH (07:36)
[2020-03-22] MEDS: Calcium Carbonate 750 MG Tab.Chew PO SCH (07:37)
[2020-03-22] MEDS: Albuterol/Ipratropium 3.0-0.5 MG/3 ML Neb Soln NEB SCH ×4 (07:37→19:24)
[2020-03-22] MEDS: Niacin 500 MG Tab PO SCH ×2 (07:37→17:01)
[2020-03-22] MEDS: Acetaminophen 325 MG Tab PO PRN ×2 (07:38→17:01)
[2020-03-22] MEDS: Cyanocobalamin (Vitamin B12) 1,000 MCG Tab PO SCH (07:38)
[2020-03-22] MEDS: Cholecalciferol (Vitamin D3) 25 MCG Tab PO SCH (07:38)
[2020-03-22] MEDS: Levothyroxine Sodium 137 MCG TABLET PO SCH (19:25)
[2020-03-22] MEDS: Menthol/Methyl Salicylate 85 GM Tube TOP PRN (19:26)
[2020-03-22] MEDS: BUPROPION XL 300MG PO SCH (19:26)
[2020-03-22] MEDS: Simvastatin 10 MG Tab PO SCH (19:26)
[2020-03-22] MEDS: Aluminum Hydroxide/Magnesium Hydroxide/Simethicone Susp 30 ML Cup PO PRN (19:28)
[2020-03-22] MEDS: IBUPROFEN 600 MG PO PRN (19:29)
[2020-03-23] MEDS: Potassium Chloride 20 MEQ Tab.ER PO SCH ×4 (08:04→19:40)
[2020-03-23] MEDS: Furosemide 20 MG Tab PO SCH ×2 (08:05→17:01)
[2020-03-23] MEDS: Albuterol/Ipratropium 3.0-0.5 MG/3 ML Neb Soln NEB SCH ×4 (08:05→19:40)
[2020-03-23] MEDS: Citalopram 20 MG Tab PO SCH (08:05)
[2020-03-23] MEDS: Fludrocortisone 0.1 MG Tab PO SCH ×2 (08:05→19:40)
[2020-03-23] MEDS: Niacin 500 MG Tab PO SCH ×2 (08:06→17:01)
[2020-03-23] MEDS: Calcium Carbonate 750 MG Tab.Chew PO SCH (08:06)
[2020-03-23] MEDS: Cyanocobalamin (Vitamin B12) 1,000 MCG Tab PO SCH (08:06)
[2020-03-23] MEDS: Cholecalciferol (Vitamin D3) 25 MCG Tab PO SCH (08:07)
[2020-03-23] MEDS: Acetaminophen 325 MG Tab PO PRN (11:42)
[2020-03-23] MEDS: Levothyroxine Sodium 137 MCG TABLET PO SCH (19:41)
[2020-03-23] MEDS: BUPROPION XL 300MG PO SCH (19:41)
[2020-03-23] MEDS: Simvastatin 10 MG Tab PO SCH (19:42)
[2020-03-24] MEDS: Albuterol/Ipratropium 3.0-0.5 MG/3 ML Neb Soln NEB SCH ×4 (08:00→19:13)
[2020-03-24] MEDS: Niacin 500 MG Tab PO SCH ×2 (08:01→17:20)
[2020-03-24] MEDS: Citalopram 20 MG Tab PO SCH (08:01)
[2020-03-24] MEDS: Potassium Chloride 20 MEQ Tab.ER PO SCH ×4 (08:01→19:15)
[2020-03-24] MEDS: Fludrocortisone 0.1 MG Tab PO SCH ×2 (08:01→19:14)
[2020-03-24] MEDS: Furosemide 20 MG Tab PO SCH ×2 (08:01→17:20)
[2020-03-24] MEDS: Cholecalciferol (Vitamin D3) 25 MCG Tab PO SCH (08:02)
[2020-03-24] MEDS: Calcium Carbonate 750 MG Tab.Chew PO SCH (08:02)
[2020-03-24] MEDS: Cyanocobalamin (Vitamin B12) 1,000 MCG Tab PO SCH (08:02)
[2020-03-24] MEDS: Aluminum Hydroxide/Magnesium Hydroxide/Simethicone Susp 30 ML Cup PO PRN (08:04)
[2020-03-24] MEDS: IBUPROFEN 600 MG PO PRN ×2 (08:04→15:40)
[2020-03-24] MEDS: Acetaminophen 325 MG Tab PO PRN (12:44)
[2020-03-24] MEDS: Levothyroxine Sodium 137 MCG TABLET PO SCH (19:15)
[2020-03-24] MEDS: BUPROPION XL 300MG PO SCH (19:16)
[2020-03-24] MEDS: Simvastatin 10 MG Tab PO SCH (19:16)
[2020-03-25] MEDS: Citalopram 20 MG Tab PO SCH (07:25)
[2020-03-25] MEDS: IBUPROFEN 600 MG PO PRN (07:25)
[2020-03-25] MEDS: Albuterol/Ipratropium 3.0-0.5 MG/3 ML Neb Soln NEB SCH ×4 (07:26→19:30)
[2020-03-25] MEDS: Potassium Chloride 20 MEQ Tab.ER PO SCH ×4 (07:26→19:33)
[2020-03-25] MEDS: Fludrocortisone 0.1 MG Tab PO SCH ×2 (07:26→19:32)
[2020-03-25] MEDS: Furosemide 20 MG Tab PO SCH ×2 (07:26→17:04)
[2020-03-25] MEDS: Cholecalciferol (Vitamin D3) 25 MCG Tab PO SCH (07:27)
[2020-03-25] MEDS: Cyanocobalamin (Vitamin B12) 1,000 MCG Tab PO SCH (07:27)
[2020-03-25] MEDS: Niacin 500 MG Tab PO SCH ×2 (07:27→17:04)
[2020-03-25] MEDS: Calcium Carbonate 750 MG Tab.Chew PO SCH (07:27)
[2020-03-25] MEDS: Aluminum Hydroxide/Magnesium Hydroxide/Simethicone Susp 30 ML Cup PO PRN (07:28)
[2020-03-25] MEDS: Acetaminophen 325 MG Tab PO PRN ×2 (11:23→19:38)
[2020-03-25] MEDS: Levothyroxine Sodium 137 MCG TABLET PO SCH (19:33)
[2020-03-25] MEDS: BUPROPION XL 300MG PO SCH (19:34)
[2020-03-25] MEDS: Simvastatin 10 MG Tab PO SCH (19:34)
[2020-03-26] MEDS: Citalopram 20 MG Tab PO SCH (07:39)
[2020-03-26] MEDS: IBUPROFEN 600 MG PO PRN ×2 (07:39→14:56)
[2020-03-26] MEDS: Albuterol/Ipratropium 3.0-0.5 MG/3 ML Neb Soln NEB SCH ×4 (07:40→19:15)
[2020-03-26] MEDS: Furosemide 20 MG Tab PO SCH ×2 (07:40→17:15)
[2020-03-26] MEDS: Fludrocortisone 0.1 MG Tab PO SCH ×2 (07:40→19:16)
[2020-03-26] MEDS: Potassium Chloride 20 MEQ Tab.ER PO SCH ×4 (07:40→19:16)
[2020-03-26] MEDS: Cholecalciferol (Vitamin D3) 25 MCG Tab PO SCH (07:41)
[2020-03-26] MEDS: Cyanocobalamin (Vitamin B12) 1,000 MCG Tab PO SCH (07:41)
[2020-03-26] MEDS: Niacin 500 MG Tab PO SCH ×2 (07:41→17:15)
[2020-03-26] MEDS: Calcium Carbonate 750 MG Tab.Chew PO SCH (07:41)
[2020-03-26] MEDS: Aluminum Hydroxide/Magnesium Hydroxide/Simethicone Susp 30 ML Cup PO PRN (07:42)
[2020-03-26] MEDS: Acetaminophen 325 MG Tab PO PRN ×2 (11:17→17:16)
[2020-03-26] MEDS: Levothyroxine Sodium 137 MCG TABLET PO SCH (19:17)
[2020-03-26] MEDS: BUPROPION XL 300MG PO SCH (19:17)
[2020-03-26] MEDS: Simvastatin 10 MG Tab PO SCH (19:17)
[2020-03-26] MEDS: Menthol/Methyl Salicylate 85 GM Tube TOP PRN (19:49)
[2020-03-27] MEDS: Citalopram 20 MG Tab PO SCH (08:17)
[2020-03-27] MEDS: Furosemide 20 MG Tab PO SCH ×2 (08:18→17:09)
[2020-03-27] MEDS: Albuterol/Ipratropium 3.0-0.5 MG/3 ML Neb Soln NEB SCH ×4 (08:18→19:33)
[2020-03-27] MEDS: Potassium Chloride 20 MEQ Tab.ER PO SCH ×4 (08:18→19:34)
[2020-03-27] MEDS: Fludrocortisone 0.1 MG Tab PO SCH ×2 (08:18→19:34)
[2020-03-27] MEDS: Acetaminophen 325 MG Tab PO PRN (08:19)
[2020-03-27] MEDS: Calcium Carbonate 750 MG Tab.Chew PO SCH (08:19)
[2020-03-27] MEDS: Niacin 500 MG Tab PO SCH ×2 (08:19→17:10)
[2020-03-27] MEDS: Cholecalciferol (Vitamin D3) 25 MCG Tab PO SCH (08:20)
[2020-03-27] MEDS: Cyanocobalamin (Vitamin B12) 1,000 MCG Tab PO SCH (08:20)
[2020-03-27] MEDS: BUPROPION XL 300MG PO SCH (19:35)
[2020-03-27] MEDS: Simvastatin 10 MG Tab PO SCH (19:35)
[2020-03-27] MEDS: Levothyroxine Sodium 137 MCG TABLET PO SCH (19:35)
[2020-03-28] MEDS: Albuterol/Ipratropium 3.0-0.5 MG/3 ML Neb Soln NEB SCH ×4 (07:30→19:14)
[2020-03-28] MEDS: Citalopram 20 MG Tab PO SCH (07:30)
[2020-03-28] MEDS: Niacin 500 MG Tab PO SCH ×2 (07:31→17:10)
[2020-03-28] MEDS: Potassium Chloride 20 MEQ Tab.ER PO SCH ×4 (07:31→19:15)
[2020-03-28] MEDS: Fludrocortisone 0.1 MG Tab PO SCH ×2 (07:31→19:15)
[2020-03-28] MEDS: Furosemide 20 MG Tab PO SCH ×2 (07:31→17:09)
[2020-03-28] MEDS: IBUPROFEN 600 MG PO PRN (07:32)
[2020-03-28] MEDS: Cyanocobalamin (Vitamin B12) 1,000 MCG Tab PO SCH (07:32)
[2020-03-28] MEDS: Cholecalciferol (Vitamin D3) 25 MCG Tab PO SCH (07:32)
[2020-03-28] MEDS: Calcium Carbonate 750 MG Tab.Chew PO SCH (07:32)
[2020-03-28] MEDS: Aluminum Hydroxide/Magnesium Hydroxide/Simethicone Susp 30 ML Cup PO PRN (07:33)
[2020-03-28] MEDS: Acetaminophen 325 MG Tab PO PRN ×2 (11:21→17:10)
[2020-03-28] MEDS: BUPROPION XL 300MG PO SCH (19:16)
[2020-03-28] MEDS: Levothyroxine Sodium 137 MCG TABLET PO SCH (19:16)
[2020-03-28] MEDS: Simvastatin 10 MG Tab PO SCH (19:17)
[2020-03-29] MEDS: Calcium Carbonate 750 MG Tab.Chew PO SCH (07:20)
[2020-03-29] MEDS: Albuterol/Ipratropium 3.0-0.5 MG/3 ML Neb Soln NEB SCH ×4 (07:20→19:20)
[2020-03-29] MEDS: IBUPROFEN 600 MG PO PRN (07:21)
[2020-03-29] MEDS: Citalopram 20 MG Tab PO SCH (07:21)
[2020-03-29] MEDS: Fludrocortisone 0.1 MG Tab PO SCH ×2 (07:21→19:20)
[2020-03-29] MEDS: Niacin 500 MG Tab PO SCH ×2 (07:22→17:12)
[2020-03-29] MEDS: Furosemide 20 MG Tab PO SCH ×2 (07:22→17:12)
[2020-03-29] MEDS: Cyanocobalamin (Vitamin B12) 1,000 MCG Tab PO SCH (07:22)
[2020-03-29] MEDS: Potassium Chloride 20 MEQ Tab.ER PO SCH ×4 (07:22→19:20)
[2020-03-29] MEDS: Cholecalciferol (Vitamin D3) 25 MCG Tab PO SCH (07:23)
[2020-03-29] MEDS: Acetaminophen 325 MG Tab PO PRN ×2 (11:29→17:13)
[2020-03-29] MEDS: Levothyroxine Sodium 137 MCG TABLET PO SCH (19:21)
[2020-03-29] MEDS: BUPROPION XL 300MG PO SCH (19:21)
[2020-03-29] MEDS: Simvastatin 10 MG Tab PO SCH (19:21)
[2020-03-29] MEDS: Menthol/Methyl Salicylate 85 GM Tube TOP PRN (19:22)
[2020-03-30] MEDS: Citalopram 20 MG Tab PO SCH (08:37)
[2020-03-30] MEDS: Fludrocortisone 0.1 MG Tab PO SCH ×2 (08:37→19:22)
[2020-03-30] MEDS: Potassium Chloride 20 MEQ Tab.ER PO SCH ×4 (08:37→19:22)
[2020-03-30] MEDS: Albuterol/Ipratropium 3.0-0.5 MG/3 ML Neb Soln NEB SCH ×4 (08:37→19:20)
[2020-03-30] MEDS: Furosemide 20 MG Tab PO SCH ×2 (08:37→17:27)
[2020-03-30] MEDS: Calcium Carbonate 750 MG Tab.Chew PO SCH (08:40)
[2020-03-30] MEDS: Niacin 500 MG Tab PO SCH ×2 (08:40→17:27)
[2020-03-30] MEDS: Cyanocobalamin (Vitamin B12) 1,000 MCG Tab PO SCH (08:41)
[2020-03-30] MEDS: Acetaminophen 325 MG Tab PO PRN ×3 (08:41→23:25)
[2020-03-30] MEDS: Cholecalciferol (Vitamin D3) 25 MCG Tab PO SCH (08:41)
[2020-03-30] MEDS: Aluminum Hydroxide/Magnesium Hydroxide/Simethicone Susp 30 ML Cup PO PRN (08:42)
[2020-03-30] MEDS: BUPROPION XL 300MG PO SCH (19:21)
[2020-03-30] MEDS: Simvastatin 10 MG Tab PO SCH (19:21)
[2020-03-30] MEDS: Levothyroxine Sodium 137 MCG TABLET PO SCH (19:21)
[2020-03-31] MEDS: Fludrocortisone 0.1 MG Tab PO SCH ×2 (08:20→19:15)
[2020-03-31] MEDS: Citalopram 20 MG Tab PO SCH (08:20)
[2020-03-31] MEDS: Potassium Chloride 20 MEQ Tab.ER PO SCH ×4 (08:20→19:15)
[2020-03-31] MEDS: Furosemide 20 MG Tab PO SCH ×2 (08:20→17:17)
[2020-03-31] MEDS: Albuterol/Ipratropium 3.0-0.5 MG/3 ML Neb Soln NEB SCH ×4 (08:21→19:14)
[2020-03-31] MEDS: Niacin 500 MG Tab PO SCH ×2 (08:21→17:17)
[2020-03-31] MEDS: Calcium Carbonate 750 MG Tab.Chew PO SCH (08:21)
[2020-03-31] MEDS: Acetaminophen 325 MG Tab PO PRN ×2 (08:22→19:17)
[2020-03-31] MEDS: Cholecalciferol (Vitamin D3) 25 MCG Tab PO SCH (08:22)
[2020-03-31] MEDS: Cyanocobalamin (Vitamin B12) 1,000 MCG Tab PO SCH (08:22)
[2020-03-31] MEDS: Levothyroxine Sodium 137 MCG TABLET PO SCH (19:16)
[2020-03-31] MEDS: BUPROPION XL 300MG PO SCH (19:16)
[2020-03-31] MEDS: Simvastatin 10 MG Tab PO SCH (19:16)
[2020-03-31] MEDS: Menthol/Methyl Salicylate 85 GM Tube TOP PRN (19:17)
[2020-04-01] MEDS: Citalopram 20 MG Tab PO SCH (07:53)
[2020-04-01] MEDS: Albuterol/Ipratropium 3.0-0.5 MG/3 ML Neb Soln NEB SCH ×4 (07:54→19:09)
[2020-04-01] MEDS: Potassium Chloride 20 MEQ Tab.ER PO SCH ×4 (07:54→19:13)
[2020-04-01] MEDS: Fludrocortisone 0.1 MG Tab PO SCH ×2 (07:54→19:13)
[2020-04-01] MEDS: Niacin 500 MG Tab PO SCH ×2 (07:54→17:06)
[2020-04-01] MEDS: Furosemide 20 MG Tab PO SCH ×2 (07:54→17:06)
[2020-04-01] MEDS: Calcium Carbonate 750 MG Tab.Chew PO SCH (07:55)
[2020-04-01] MEDS: Cyanocobalamin (Vitamin B12) 1,000 MCG Tab PO SCH (07:55)
[2020-04-01] MEDS: IBUPROFEN 600 MG PO PRN (07:55)
[2020-04-01] MEDS: Cholecalciferol (Vitamin D3) 25 MCG Tab PO SCH (07:55)
[2020-04-01] MEDS: BUPROPION XL 300MG PO SCH (19:13)
[2020-04-01] MEDS: Levothyroxine Sodium 137 MCG TABLET PO SCH (19:13)
[2020-04-01] MEDS: Simvastatin 10 MG Tab PO SCH (19:13)
[2020-04-01] MEDS: Menthol/Methyl Salicylate 85 GM Tube TOP PRN (19:14)
[2020-04-01] MEDS: Acetaminophen 325 MG Tab PO PRN (19:15)
[2020-04-02] MEDS: Citalopram 20 MG Tab PO SCH (07:49)
[2020-04-02] MEDS: Albuterol/Ipratropium 3.0-0.5 MG/3 ML Neb Soln NEB SCH ×4 (07:49→18:59)
[2020-04-02] MEDS: Fludrocortisone 0.1 MG Tab PO SCH ×2 (07:50→18:59)
[2020-04-02] MEDS: Calcium Carbonate 750 MG Tab.Chew PO SCH (07:50)
[2020-04-02] MEDS: Niacin 500 MG Tab PO SCH ×2 (07:50→17:05)
[2020-04-02] MEDS: Furosemide 20 MG Tab PO SCH ×2 (07:50→17:05)
[2020-04-02] MEDS: Potassium Chloride 20 MEQ Tab.ER PO SCH ×4 (07:50→18:59)
[2020-04-02] MEDS: IBUPROFEN 600 MG PO PRN ×2 (07:51→15:12)
[2020-04-02] MEDS: Cyanocobalamin (Vitamin B12) 1,000 MCG Tab PO SCH (07:51)
[2020-04-02] MEDS: Cholecalciferol (Vitamin D3) 25 MCG Tab PO SCH (07:51)
[2020-04-02] MEDS: Aluminum Hydroxide/Magnesium Hydroxide/Simethicone Susp 30 ML Cup PO PRN (07:52)
[2020-04-02] MEDS: Acetaminophen 325 MG Tab PO PRN ×2 (11:12→18:57)
[2020-04-02] MEDS: Menthol/Methyl Salicylate 85 GM Tube TOP PRN (18:57)
[2020-04-02] MEDS: Levothyroxine Sodium 137 MCG TABLET PO SCH (18:59)
[2020-04-02] MEDS: Simvastatin 10 MG Tab PO SCH (19:00)
[2020-04-02] MEDS: BUPROPION XL 300MG PO SCH (19:00)
[2020-04-03] MEDS: Albuterol/Ipratropium 3.0-0.5 MG/3 ML Neb Soln NEB SCH ×4 (07:44→19:29)
[2020-04-03] MEDS: Citalopram 20 MG Tab PO SCH (07:44)
[2020-04-03] MEDS: Fludrocortisone 0.1 MG Tab PO SCH ×2 (07:45→19:30)
[2020-04-03] MEDS: Potassium Chloride 20 MEQ Tab.ER PO SCH ×4 (07:45→19:29)
[2020-04-03] MEDS: Furosemide 20 MG Tab PO SCH ×2 (07:45→17:02)
[2020-04-03] MEDS: Calcium Carbonate 750 MG Tab.Chew PO SCH (07:46)
[2020-04-03] MEDS: Niacin 500 MG Tab PO SCH ×2 (07:46→17:03)
[2020-04-03] MEDS: Cholecalciferol (Vitamin D3) 25 MCG Tab PO SCH (07:47)
[2020-04-03] MEDS: Cyanocobalamin (Vitamin B12) 1,000 MCG Tab PO SCH (07:47)
[2020-04-03] MEDS: IBUPROFEN 600 MG PO PRN (11:13)
[2020-04-03] MEDS: Acetaminophen 325 MG Tab PO PRN (15:12)
[2020-04-03] MEDS: Levothyroxine Sodium 137 MCG TABLET PO SCH (19:30)
[2020-04-03] MEDS: BUPROPION XL 300MG PO SCH (19:30)
[2020-04-03] MEDS: Simvastatin 10 MG Tab PO SCH (19:30)
[2020-04-04] MEDS: Furosemide 20 MG Tab PO SCH ×2 (08:32→17:19)
[2020-04-04] MEDS: Potassium Chloride 20 MEQ Tab.ER PO SCH ×4 (08:33→19:16)
[2020-04-04] MEDS: Fludrocortisone 0.1 MG Tab PO SCH ×2 (08:33→19:16)
[2020-04-04] MEDS: Citalopram 20 MG Tab PO SCH (08:33)
[2020-04-04] MEDS: Albuterol/Ipratropium 3.0-0.5 MG/3 ML Neb Soln NEB SCH ×4 (08:34→19:15)
[2020-04-04] MEDS: Niacin 500 MG Tab PO SCH ×2 (08:34→17:18)
[2020-04-04] MEDS: Cyanocobalamin (Vitamin B12) 1,000 MCG Tab PO SCH (08:35)
[2020-04-04] MEDS: Cholecalciferol (Vitamin D3) 25 MCG Tab PO SCH (08:35)
[2020-04-04] MEDS: Calcium Carbonate 750 MG Tab.Chew PO SCH (08:35)
[2020-04-04] MEDS: Acetaminophen 325 MG Tab PO PRN ×2 (08:36→19:18)
[2020-04-04] MEDS: BUPROPION XL 300MG PO SCH (19:16)
[2020-04-04] MEDS: Simvastatin 10 MG Tab PO SCH (19:16)
[2020-04-04] MEDS: Levothyroxine Sodium 137 MCG TABLET PO SCH (19:16)
[2020-04-04] MEDS: Menthol/Methyl Salicylate 85 GM Tube TOP PRN (19:17)
[2020-04-05] MEDS: IBUPROFEN 600 MG PO PRN ×2 (07:45→15:06)
[2020-04-05] MEDS: Aluminum Hydroxide/Magnesium Hydroxide/Simethicone Susp 30 ML Cup PO PRN (07:45)
[2020-04-05] MEDS: Albuterol/Ipratropium 3.0-0.5 MG/3 ML Neb Soln NEB SCH ×4 (07:46→19:10)
[2020-04-05] MEDS: Calcium Carbonate 750 MG Tab.Chew PO SCH (07:46)
[2020-04-05] MEDS: Fludrocortisone 0.1 MG Tab PO SCH ×2 (07:47→19:10)
[2020-04-05] MEDS: Potassium Chloride 20 MEQ Tab.ER PO SCH ×4 (07:47→19:11)
[2020-04-05] MEDS: Citalopram 20 MG Tab PO SCH (07:47)
[2020-04-05] MEDS: Niacin 500 MG Tab PO SCH ×2 (07:48→17:17)
[2020-04-05] MEDS: Furosemide 20 MG Tab PO SCH ×2 (07:48→17:16)
[2020-04-05] MEDS: Cholecalciferol (Vitamin D3) 25 MCG Tab PO SCH (07:48)
[2020-04-05] MEDS: Cyanocobalamin (Vitamin B12) 1,000 MCG Tab PO SCH (07:48)
[2020-04-05] MEDS: Acetaminophen 325 MG Tab PO PRN ×2 (11:34→19:12)
[2020-04-05] MEDS: Simvastatin 10 MG Tab PO SCH (19:11)
[2020-04-05] MEDS: Levothyroxine Sodium 137 MCG TABLET PO SCH (19:11)
[2020-04-05] MEDS: BUPROPION XL 300MG PO SCH (19:11)
[2020-04-05] MEDS: Menthol/Methyl Salicylate 85 GM Tube TOP PRN (19:12)
[2020-04-06] MEDS: Acetaminophen 325 MG Tab PO PRN ×2 (02:39→19:46)
[2020-04-06] MEDS: Furosemide 20 MG Tab PO SCH ×2 (08:08→17:13)
[2020-04-06] MEDS: Citalopram 20 MG Tab PO SCH (08:08)
[2020-04-06] MEDS: Fludrocortisone 0.1 MG Tab PO SCH ×2 (08:08→19:45)
[2020-04-06] MEDS: Potassium Chloride 20 MEQ Tab.ER PO SCH ×4 (08:08→19:45)
[2020-04-06] MEDS: Niacin 500 MG Tab PO SCH ×2 (08:09→17:13)
[2020-04-06] MEDS: Cholecalciferol (Vitamin D3) 25 MCG Tab PO SCH (08:09)
[2020-04-06] MEDS: Albuterol/Ipratropium 3.0-0.5 MG/3 ML Neb Soln NEB SCH ×4 (08:09→19:44)
[2020-04-06] MEDS: Cyanocobalamin (Vitamin B12) 1,000 MCG Tab PO SCH (08:10)
[2020-04-06] MEDS: Calcium Carbonate 750 MG Tab.Chew PO SCH (08:10)
[2020-04-06] MEDS: IBUPROFEN 600 MG PO PRN (17:13)
[2020-04-06] MEDS: Levothyroxine Sodium 137 MCG TABLET PO SCH (19:45)
[2020-04-06] MEDS: Simvastatin 10 MG Tab PO SCH (19:45)
[2020-04-06] MEDS: BUPROPION XL 300MG PO SCH (19:45)
[2020-04-06] MEDS: Menthol/Methyl Salicylate 85 GM Tube TOP PRN (19:46)
[2020-04-07] MEDS: Acetaminophen 325 MG Tab PO PRN ×2 (03:17→19:28)
[2020-04-07] MEDS: Citalopram 20 MG Tab PO SCH (08:15)
[2020-04-07] MEDS: Fludrocortisone 0.1 MG Tab PO SCH ×2 (08:16→19:26)
[2020-04-07] MEDS: Albuterol/Ipratropium 3.0-0.5 MG/3 ML Neb Soln NEB SCH ×4 (08:16→19:25)
[2020-04-07] MEDS: Furosemide 20 MG Tab PO SCH ×2 (08:17→17:16)
[2020-04-07] MEDS: Potassium Chloride 20 MEQ Tab.ER PO SCH ×4 (08:17→19:26)
[2020-04-07] MEDS: Cholecalciferol (Vitamin D3) 25 MCG Tab PO SCH (08:18)
[2020-04-07] MEDS: Niacin 500 MG Tab PO SCH ×2 (08:18→17:16)
[2020-04-07] MEDS: Calcium Carbonate 750 MG Tab.Chew PO SCH (08:18)
[2020-04-07] MEDS: Cyanocobalamin (Vitamin B12) 1,000 MCG Tab PO SCH (10:28)
[2020-04-07] MEDS: Simvastatin 10 MG Tab PO SCH (19:27)
[2020-04-07] MEDS: Levothyroxine Sodium 137 MCG TABLET PO SCH (19:27)
[2020-04-07] MEDS: BUPROPION XL 300MG PO SCH (19:27)
[2020-04-07] MEDS: Menthol/Methyl Salicylate 85 GM Tube TOP PRN (19:33)
[2020-04-08] MEDS: Citalopram 20 MG Tab PO SCH (07:22)
[2020-04-08] MEDS: Potassium Chloride 20 MEQ Tab.ER PO SCH ×4 (07:23→19:36)
[2020-04-08] MEDS: Albuterol/Ipratropium 3.0-0.5 MG/3 ML Neb Soln NEB SCH ×4 (07:23→19:35)
[2020-04-08] MEDS: Fludrocortisone 0.1 MG Tab PO SCH ×2 (07:23→19:35)
[2020-04-08] MEDS: Niacin 500 MG Tab PO SCH ×2 (07:24→17:52)
[2020-04-08] MEDS: Furosemide 20 MG Tab PO SCH ×2 (07:24→17:51)
[2020-04-08] MEDS: Calcium Carbonate 750 MG Tab.Chew PO SCH (07:25)
[2020-04-08] MEDS: Cyanocobalamin (Vitamin B12) 1,000 MCG Tab PO SCH (07:26)
[2020-04-08] MEDS: Cholecalciferol (Vitamin D3) 25 MCG Tab PO SCH (07:27)
[2020-04-08] MEDS: Acetaminophen 325 MG Tab PO PRN ×2 (07:34→19:40)
[2020-04-08] MEDS: Simvastatin 10 MG Tab PO SCH (19:36)
[2020-04-08] MEDS: Levothyroxine Sodium 137 MCG TABLET PO SCH (19:36)
[2020-04-08] MEDS: BUPROPION XL 300MG PO SCH (19:36)
[2020-04-08] MEDS: Menthol/Methyl Salicylate 85 GM Tube TOP PRN (19:38)
[2020-04-09] MEDS: Citalopram 20 MG Tab PO SCH (07:22)
[2020-04-09] MEDS: Albuterol/Ipratropium 3.0-0.5 MG/3 ML Neb Soln NEB SCH ×4 (07:22→20:26)
[2020-04-09] MEDS: Fludrocortisone 0.1 MG Tab PO SCH ×2 (07:22→20:27)
[2020-04-09] MEDS: Furosemide 20 MG Tab PO SCH ×2 (07:23→17:24)
[2020-04-09] MEDS: Potassium Chloride 20 MEQ Tab.ER PO SCH ×4 (07:23→20:27)
[2020-04-09] MEDS: Niacin 500 MG Tab PO SCH ×2 (07:24→17:25)
[2020-04-09] MEDS: Calcium Carbonate 750 MG Tab.Chew PO SCH (07:24)
[2020-04-09] MEDS: Cholecalciferol (Vitamin D3) 25 MCG Tab PO SCH (07:25)
[2020-04-09] MEDS: Cyanocobalamin (Vitamin B12) 1,000 MCG Tab PO SCH (07:25)
[2020-04-09] MEDS: Acetaminophen 325 MG Tab PO PRN ×2 (08:36→20:30)
[2020-04-09] MEDS: BUPROPION XL 300MG PO SCH (20:28)
[2020-04-09] MEDS: Levothyroxine Sodium 137 MCG TABLET PO SCH (20:28)
[2020-04-09] MEDS: Simvastatin 10 MG Tab PO SCH (20:28)
[2020-04-09] MEDS: Menthol/Methyl Salicylate 85 GM Tube TOP PRN (20:31)
[2020-04-10] MEDS: Acetaminophen 325 MG Tab PO PRN ×3 (04:44→19:39)
[2020-04-10] MEDS: Fludrocortisone 0.1 MG Tab PO SCH ×2 (07:45→19:38)
[2020-04-10] MEDS: Citalopram 20 MG Tab PO SCH (07:45)
[2020-04-10] MEDS: Potassium Chloride 20 MEQ Tab.ER PO SCH ×4 (07:46→19:38)
[2020-04-10] MEDS: Albuterol/Ipratropium 3.0-0.5 MG/3 ML Neb Soln NEB SCH ×4 (07:47→19:36)
[2020-04-10] MEDS: Furosemide 20 MG Tab PO SCH ×2 (07:47→17:02)
[2020-04-10] MEDS: Niacin 500 MG Tab PO SCH ×2 (07:47→17:02)
[2020-04-10] MEDS: Cholecalciferol (Vitamin D3) 25 MCG Tab PO SCH (07:48)
[2020-04-10] MEDS: Calcium Carbonate 750 MG Tab.Chew PO SCH (07:48)
[2020-04-10] MEDS: Cyanocobalamin (Vitamin B12) 1,000 MCG Tab PO SCH (07:50)
[2020-04-10] MEDS: Simvastatin 10 MG Tab PO SCH (19:38)
[2020-04-10] MEDS: Levothyroxine Sodium 137 MCG TABLET PO SCH (19:39)
[2020-04-10] MEDS: BUPROPION XL 300MG PO SCH (19:39)
[2020-04-10] MEDS: Menthol/Methyl Salicylate 85 GM Tube TOP PRN (19:40)
[2020-04-11] MEDS: IBUPROFEN 600 MG PO PRN ×3 (02:30→15:08)
[2020-04-11] MEDS: Albuterol/Ipratropium 3.0-0.5 MG/3 ML Neb Soln NEB SCH ×4 (08:11→19:35)
[2020-04-11] MEDS: Potassium Chloride 20 MEQ Tab.ER PO SCH ×4 (08:11→19:36)
[2020-04-11] MEDS: Citalopram 20 MG Tab PO SCH (08:11)
[2020-04-11] MEDS: Fludrocortisone 0.1 MG Tab PO SCH ×2 (08:11→19:36)
[2020-04-11] MEDS: Furosemide 20 MG Tab PO SCH ×2 (08:11→17:09)
[2020-04-11] MEDS: Calcium Carbonate 750 MG Tab.Chew PO SCH (08:12)
[2020-04-11] MEDS: Niacin 500 MG Tab PO SCH ×2 (08:12→17:09)
[2020-04-11] MEDS: Cholecalciferol (Vitamin D3) 25 MCG Tab PO SCH (08:12)
[2020-04-11] MEDS: Cyanocobalamin (Vitamin B12) 1,000 MCG Tab PO SCH (08:12)
[2020-04-11] MEDS: Aluminum Hydroxide/Magnesium Hydroxide/Simethicone Susp 30 ML Cup PO PRN (08:13)
[2020-04-11] MEDS: Acetaminophen 325 MG Tab PO PRN ×2 (11:42→19:38)
[2020-04-11] MEDS: Levothyroxine Sodium 137 MCG TABLET PO SCH (19:36)
[2020-04-11] MEDS: BUPROPION XL 300MG PO SCH (19:37)
[2020-04-11] MEDS: Menthol/Methyl Salicylate 85 GM Tube TOP PRN (19:37)
[2020-04-11] MEDS: Simvastatin 10 MG Tab PO SCH (19:37)
[2020-04-12] MEDS: Citalopram 20 MG Tab PO SCH (07:45)
[2020-04-12] MEDS: Fludrocortisone 0.1 MG Tab PO SCH ×2 (07:46→19:20)
[2020-04-12] MEDS: Potassium Chloride 20 MEQ Tab.ER PO SCH ×4 (07:46→19:21)
[2020-04-12] MEDS: Albuterol/Ipratropium 3.0-0.5 MG/3 ML Neb Soln NEB SCH ×4 (07:46→19:20)
[2020-04-12] MEDS: Furosemide 20 MG Tab PO SCH ×2 (07:46→17:20)
[2020-04-12] MEDS: Calcium Carbonate 750 MG Tab.Chew PO SCH (07:47)
[2020-04-12] MEDS: Cholecalciferol (Vitamin D3) 25 MCG Tab PO SCH (07:47)
[2020-04-12] MEDS: Niacin 500 MG Tab PO SCH ×2 (07:47→17:20)
[2020-04-12] MEDS: Cyanocobalamin (Vitamin B12) 1,000 MCG Tab PO SCH (07:47)
[2020-04-12] MEDS: IBUPROFEN 600 MG PO PRN ×2 (07:48→17:20)
[2020-04-12] MEDS: Levothyroxine Sodium 137 MCG TABLET PO SCH (19:21)
[2020-04-12] MEDS: BUPROPION XL 300MG PO SCH (19:21)
[2020-04-12] MEDS: Acetaminophen 325 MG Tab PO PRN (19:22)
[2020-04-12] MEDS: Simvastatin 10 MG Tab PO SCH (19:22)
[2020-04-12] MEDS: Menthol/Methyl Salicylate 85 GM Tube TOP PRN (19:23)
[2020-04-13] MEDS: Albuterol/Ipratropium 3.0-0.5 MG/3 ML Neb Soln NEB SCH ×4 (07:25→19:50)
[2020-04-13] MEDS: Fludrocortisone 0.1 MG Tab PO SCH ×2 (07:25→19:50)
[2020-04-13] MEDS: Citalopram 20 MG Tab PO SCH (07:25)
[2020-04-13] MEDS: Potassium Chloride 20 MEQ Tab.ER PO SCH ×4 (07:25→19:50)
[2020-04-13] MEDS: Furosemide 20 MG Tab PO SCH ×2 (07:26→17:46)
[2020-04-13] MEDS: Niacin 500 MG Tab PO SCH ×2 (07:26→17:46)
[2020-04-13] MEDS: Calcium Carbonate 750 MG Tab.Chew PO SCH (07:26)
[2020-04-13] MEDS: IBUPROFEN 600 MG PO PRN (07:27)
[2020-04-13] MEDS: Cholecalciferol (Vitamin D3) 25 MCG Tab PO SCH (07:27)
[2020-04-13] MEDS: Cyanocobalamin (Vitamin B12) 1,000 MCG Tab PO SCH (07:27)
[2020-04-13] MEDS: Aluminum Hydroxide/Magnesium Hydroxide/Simethicone Susp 30 ML Cup PO PRN (07:28)
--- NOTE | 2020-04-13 09:17 | EDM.PDOC ---
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 Admin: 07/24/19 23:29 Dose: 650 mg Admin: 07/23/19 19:32 Dose: 650 mg Admin: 07/22/19 02:08 Dose: 650 mg Admin: 07/21/19 18:26 Dose: 650 mg Admin: 07/19/19 19:17 Dose: 650 mg Admin: 07/19/19 13:10 Dose: 650 mg Admin: 07/19/19 03:37 Dose: 650 mg Admin: 07/18/19 08:10 Dose: 650 mg Admin: 07/17/19 10:04 Dose: 650 mg Admin: 07/17/19 04:46 Dose: 650 mg Admin: 07/16/19 10:09 Dose: 650 mg Admin: 07/16/19 01:42 Dose: 650 mg Admin: 07/15/19 19:14 Dose: 650 mg Admin: 07/15/19 14:21 Dose: 650 mg Admin: 07/15/19 02:15 Dose: 650 mg Admin: 07/14/19 19:20 Dose: 650 mg Admin: 07/14/19 02:58 Dose: 650 mg Admin: 07/13/19 03:16 Dose: 650 mg Admin: 07/12/19 13:03 Dose: 650 mg Admin: 07/11/19 19:25 Dose: 650 mg Admin: 07/10/19 19:26 Dose: 650 mg Admin: 07/09/19 19:16 Dose: 650 mg Admin: 07/09/19 13:11 Dose: 650 mg Admin: 07/08/19 19:27 Dose: 650 mg Admin: 07/08/19 08:51 Dose: 650 mg Admin: 07/08/19 00:19 Dose: 650 mg Admin: 07/07/19 08:04 Dose: 650 mg Admin: 07/06/19 22:48 Dose: 650 mg Admin: 07/06/19 07:57 Dose: 650 mg Admin: 07/06/19 01:05 Dose: 650 mg Admin: 07/05/19 07:52 Dose: 650 mg Admin: 07/04/19 09:02 Dose: 650 mg Admin: 07/03/19 19:12 Dose: 650 mg Admin: 07/02/19 23:37 Dose: 650 mg Admin: 07/02/19 08:29 Dose: 650 mg Admin: 07/01/19 19:37 Dose: 650 mg Admin: 06/30/19 19:13 Dose: 650 mg Admin: 06/29/19 19:15 Dose: 650 mg Admin: 06/29/19 07:50 Dose: 650 mg Admin: 06/28/19 19:15 Dose: 650 mg Admin: 06/27/19 21:56 Dose: 650 mg Admin: 06/27/19 17:58 Dose: 650 mg Admin: 06/26/19 04:39 Dose: 650 mg Admin: 06/25/19 08:31 Dose: 650 mg Admin: 06/24/19 17:22 Dose: 650 mg Admin: 06/24/19 07:47 Dose: 650 mg Admin: 06/23/19 19:12 Dose: 650 mg Admin: 06/22/19 19:20 Dose: 650 mg Admin: 06/21/19 11:16 Dose: 650 mg Admin: 06/20/19 19:25 Dose: 650 mg Admin: 06/20/19 11:11 Dose: 650 mg Admin: 06/20/19 01:46 Dose: 650 mg Admin: 06/19/19 19:14 Dose: 650 mg Admin: 06/19/19 11:11 Dose: 650 mg Admin: 06/18/19 19:23 Dose: 650 mg Admin: 06/18/19 08:10 Dose: 650 mg Admin: 06/16/19 01:42 Dose: 650 mg Admin: 06/13/19 19:13 Dose: 650 mg Admin: 06/13/19 00:57 Dose: 650 mg Admin: 06/12/19 09:58 Dose: 650 mg Admin: 06/11/19 19:29 Dose: 650 mg Admin: 06/10/19 19:14 Dose: 650 mg Admin: 06/09/19 19:35 Dose: 650 mg Admin: 06/08/19 19:15 Dose: 650 mg Admin: 06/07/19 14:37 Dose: 650 mg Admin: 06/01/19 19:28 Dose: 650 mg Admin: 05/25/19 17:54 Dose: 650 mg Al Hydroxide/Mg Hydroxide (Mag-Al Plus) 30 ml PO Q4H PRN PRN Reason: Indigestion Last Admin: 04/13/20 07:28 Dose: 30 ml Admin: 04/11/20 08:13 Dose: 30 ml Admin: 04/05/20 07:45 Dose: 30 ml Admin: 04/02/20 07:52 Dose: 30 ml Admin: 03/30/20 08:42 Dose: 30 ml Admin: 03/28/20 07:33 Dose: 30 ml Admin: 03/26/20 07:42 Dose: 30 ml Admin: 03/25/20 07:28 Dose: 30 ml Admin: 03/24/20 08:04 Dose: 30 ml Admin: 03/22/20 19:28 Dose: 30 ml Admin: 03/21/20 19:25 Dose: 30 ml Admin: 03/21/20 08:12 Dose: 30 ml Admin: 03/21/20 03:57 Dose: 30 ml Admin: 03/18/20 09:29 Dose: 30 ml Admin: 03/15/20 19:28 Dose: 30 ml Admin: 03/13/20 08:45 Dose: 30 ml Admin: 03/11/20 19:34 Dose: 30 ml Admin: 03/11/20 08:46 Dose: 30 ml Admin: 03/10/20 19:37 Dose: 30 ml Admin: 03/08/20 10:26 Dose: 30 ml Admin: 03/07/20 19:57 Dose: 30 ml Admin: 03/07/20 08:30 Dose: 30 ml Admin: 03/06/20 09:11 Dose: 30 ml Admin: 03/04/20 08:30 Dose: 30 ml Admin: 03/01/20 19:39 Dose: 30 ml Admin: 02/29/20 19:21 Dose: 30 ml Admin: 02/27/20 19:31 Dose: 30 ml Admin: 02/23/20 09:00 Dose: 30 ml Admin: 02/20/20 09:30 Dose: 30 ml Admin: 02/08/20 19:52 Dose: 30 ml Admin: 02/06/20 09:26 Dose: 30 ml Admin: 02/04/20 19:52 Dose: 30 ml Admin: 02/04/20 11:37 Dose: 30 ml Admin: 02/03/20 19:48 Dose: 30 ml Admin: 02/01/20 19:40 Dose: 30 ml Admin: 02/01/20 08:02 Dose: 30 ml Admin: 01/31/20 08:50 Dose: 30 ml Admin: 01/30/20 19:37 Dose: 30 ml Admin: 01/28/20 19:54 Dose: 30 ml Admin: 01/28/20 08:44 Dose: 30 ml Admin: 01/18/20 09:46 Dose: 30 ml Admin: 01/11/20 19:41 Dose: 30 ml Admin: 01/09/20 09:20 Dose: 30 ml Admin: 01/07/20 19:20 Dose: 30 ml Admin: 01/06/20 19:46 Dose: 30 ml Admin: 01/05/20 19:59 Dose: 30 ml Admin: 01/02/20 19:30 Dose: 30 ml Admin: 12/27/19 19:23 Dose: 30 ml Admin: 12/27/19 08:34 Dose: 30 ml Admin: 12/24/19 19:20 Dose: 30 ml Admin: 12/23/19 19:20 Dose: 30 ml Admin: 12/22/19 19:15 Dose: 30 ml Admin: 12/21/19 19:46 Dose: 30 ml Admin: 12/20/19 19:32 Dose: 30 ml Admin: 12/17/19 19:36 Dose: 30 ml Admin: 12/16/19 19:16 Dose: 30 ml Admin: 12/16/19 09:37 Dose: 30 ml Admin: 12/15/19 19:25 Dose: 30 ml Admin: 12/15/19 08:01 Dose: 30 ml Admin: 12/14/19 08:47 Dose: 30 ml Admin: 12/12/19 07:10 Dose: 30 ml Admin: 12/11/19 19:08 Dose: 30 ml Admin: 12/11/19 07:12 Dose: 30 ml Admin: 12/10/19 19:22 Dose: 30 ml Admin: 12/07/19 09:31 Dose: 30 ml Admin: 12/05/19 08:53 Dose: 30 ml Admin: 12/04/19 09:10 Dose: 30 ml Admin: 12/03/19 19:50 Dose: 30 ml Admin: 11/30/19 09:00 Dose: 30 ml Admin: 11/24/19 09:35 Dose: 30 ml Admin: 11/23/19 09:08 Dose: 30 ml Admin: 11/15/19 23:44 Dose: 30 ml Admin: 11/12/19 16:38 Dose: 30 ml Admin: 11/12/19 08:10 Dose: 30 ml Admin: 11/11/19 05:07 Dose: 30 ml Admin: 11/07/19 09:13 Dose: 30 ml Admin: 11/06/19 18:59 Dose: 30 ml Admin: 11/01/19 08:47 Dose: 30 ml Admin: 10/31/19 09:56 Dose: 30 ml Admin: 10/30/19 11:12 Dose: 30 ml Admin: 10/26/19 21:13 Dose: 30 ml Admin: 10/17/19 19:51 Dose: 30 ml Admin: 10/17/19 09:04 Dose: 30 ml Admin: 10/16/19 19:37 Dose: 30 ml Admin: 10/15/19 19:15 Dose: 30 ml Admin: 10/14/19 09:14 Dose: 30 ml Admin: 10/11/19 09:39 Dose: 30 ml Admin: 10/09/19 09:32 Dose: 30 ml Admin: 10/07/19 19:13 Dose: 30 ml Admin: 10/04/19 19:32 Dose: 30 ml Admin: 09/26/19 08:52 Dose: 30 ml Admin: 09/20/19 09:04 Dose: 30 ml Admin: 09/10/19 09:13 Dose: 30 ml Admin: 09/08/19 09:18 Dose: 30 ml Albuterol/Ipratropium (Duoneb 3.0-0.5 Mg/3 Ml) 3 ml NEB Q4HRRT PRN PRN Reason: Dyspnea Last Admin: 02/28/20 12:14 Dose: 3 ml Admin: 02/25/20 11:17 Dose: 3 ml Admin: 01/11/20 17:28 Dose: 3 ml Admin: 07/23/19 13:16 Dose: 3 ml Admin: 05/26/19 08:24 Dose: 3 ml Albuterol/Ipratropium (Duoneb 3.0-0.5 Mg/3 Ml) 3 ml NEB QIDRT MIESHA Last Admin: 04/13/20 07:25 Dose: 3 ml Admin: 04/12/20 19:20 Dose: 3 ml Admin: 04/12/20 16:46 Dose: 3 ml Admin: 04/12/20 11:22 Dose: 3 ml Admin: 04/12/20 07:46 Dose: 3 ml Admin: 04/11/20 19:35 Dose: 3 ml Admin: 04/11/20 15:07 Dose: 3 ml Admin: 04/11/20 11:42 Dose: 3 ml Admin: 04/11/20 08:11 Dose: 3 ml Admin: 04/10/20 19:36 Dose: 3 ml Admin: 04/10/20 17:00 Dose: 3 ml Admin: 04/10/20 11:27 Dose: 3 ml Admin: 04/10/20 07:47 Dose: 3 ml Admin: 04/09/20 20:26 Dose: 3 ml Admin: 04/09/20 16:38 Dose: 3 ml Admin: 04/09/20 11:25 Dose: 3 ml Admin: 04/09/20 07:22 Dose: 3 ml Admin: 04/08/20 19:35 Dose: 3 ml Admin: 04/08/20 17:51 Dose: 3 ml Admin: 04/08/20 11:16 Dose: 3 ml Admin: 04/08/20 07:23 Dose: 3 ml Admin: 04/07/20 19:25 Dose: 3 ml Admin: 04/07/20 16:19 Dose: 3 ml Admin: 04/07/20 11:31 Dose: 3 ml Admin: 04/07/20 08:16 Dose: 3 ml Admin: 04/06/20 19:44 Dose: 3 ml Admin: 04/06/20 16:11 Dose: 3 ml Admin: 04/06/20 11:26 Dose: 3 ml Admin: 04/06/20 08:09 Dose: 3 ml Admin: 04/05/20 19:10 Dose: 3 ml Admin: 04/05/20 15:05 Dose: 3 ml Admin: 04/05/20 11:33 Dose: 3 ml Admin: 04/05/20 07:46 Dose: 3 ml Admin: 04/04/20 19:15 Dose: 3 ml Admin: 04/04/20 15:25 Dose: 3 ml Admin: 04/04/20 11:15 Dose: 3 ml Admin: 04/04/20 08:34 Dose: 3 ml Admin: 04/03/20 19:29 Dose: 3 ml Admin: 04/03/20 15:11 Dose: 3 ml Admin: 04/03/20 11:13 Dose: 3 ml Admin: 04/03/20 07:44 Dose: 3 ml Admin: 04/02/20 18:59 Dose: 3 ml Admin: 04/02/20 15:11 Dose: 3 ml Admin: 04/02/20 11:11 Dose: 3 ml Admin: 04/02/20 07:49 Dose: 3 ml Admin: 04/01/20 19:09 Dose: 3 ml Admin: 04/01/20 16:29 Dose: 3 ml Admin: 04/01/20 11:41 Dose: 3 ml Admin: 04/01/20 07:54 Dose: 3 ml Admin: 03/31/20 19:14 Dose: 3 ml Admin: 03/31/20 15:34 Dose: 3 ml Admin: 03/31/20 11:36 Dose: 3 ml Admin: 03/31/20 08:21 Dose: 3 ml Admin: 03/30/20 19:20 Dose: 3 ml Admin: 03/30/20 16:08 Dose: 3 ml Admin: 03/30/20 11:21 Dose: 3 ml Admin: 03/30/20 08:37 Dose: 3 ml Admin: 03/29/20 19:20 Dose: 3 ml Admin: 03/29/20 15:06 Dose: 3 ml Admin: 03/29/20 11:28 Dose: 3 ml Admin: 03/29/20 07:20 Dose: 3 ml Admin: 03/28/20 19:14 Dose: 3 ml Admin: 03/28/20 15:32 Dose: 3 ml Admin: 03/28/20 11:19 Dose: 3 ml Admin: 03/28/20 07:30 Dose: 3 ml Admin: 03/27/20 19:33 Dose: 3 ml Admin: 03/27/20 17:07 Dose: 3 ml Admin: 03/27/20 12:06 Dose: 3 ml Admin: 03/27/20 08:18 Dose: 3 ml Admin: 03/26/20 19:15 Dose: 3 ml Admin: 03/26/20 15:03 Dose: 3 ml Admin: 03/26/20 11:17 Dose: 3 ml Admin: 03/26/20 07:40 Dose: 3 ml Admin: 03/25/20 19:30 Dose: 3 ml Admin: 03/25/20 15:06 Dose: 3 ml Admin: 03/25/20 11:22 Dose: 3 ml Admin: 03/25/20 07:26 Dose: 3 ml Admin: 03/24/20 19:13 Dose: 3 ml Admin: 03/24/20 15:11 Dose: 3 ml Admin: 03/24/20 11:07 Dose: 3 ml Admin: 03/24/20 08:00 Dose: 3 ml Admin: 03/23/20 19:40 Dose: 3 ml Admin: 03/23/20 16:57 Dose: 3 ml Admin: 03/23/20 11:42 Dose: 3 ml Admin: 03/23/20 08:05 Dose: 3 ml Admin: 03/22/20 19:24 Dose: 3 ml Admin: 03/22/20 17:00 Dose: 3 ml Admin: 03/22/20 11:40 Dose: 3 ml Admin: 03/22/20 07:37 Dose: 3 ml Admin: 03/21/20 19:22 Dose: 3 ml Admin: 03/21/20 15:31 Dose: 3 ml Admin: 03/21/20 11:28 Dose: 3 ml Admin: 03/21/20 08:08 Dose: 3 ml Admin: 03/20/20 19:39 Dose: 3 ml Admin: 03/20/20 16:58 Dose: 3 ml Admin: 03/20/20 11:18 Dose: 3 ml Admin: 03/20/20 07:41 Dose: 3 ml Admin: 03/19/20 19:40 Dose: 3 ml Admin: 03/19/20 16:29 Dose: 3 ml Admin: 03/19/20 12:02 Dose: 3 ml Admin: 03/19/20 08:06 Dose: 3 ml Admin: 03/18/20 19:22 Dose: 3 ml Admin: 03/18/20 15:54 Dose: 3 ml Admin: 03/18/20 11:35 Dose: 3 ml Admin: 03/18/20 08:29 Dose: 3 ml Admin: 03/17/20 19:24 Dose: 3 ml Admin: 03/17/20 15:57 Dose: 3 ml Admin: 03/17/20 12:49 Dose: 3 ml Admin: 03/17/20 08:06 Dose: 3 ml Admin: 03/16/20 19:28 Dose: 3 ml Admin: 03/16/20 15:54 Dose: 3 ml Admin: 03/16/20 11:36 Dose: 3 ml Admin: 03/16/20 08:36 Dose: 3 ml Admin: 03/15/20 19:23 Dose: 3 ml Admin: 03/15/20 15:44 Dose: 3 ml Admin: 03/15/20 11:43 Dose: 3 ml Admin: 03/15/20 08:19 Dose: 3 ml Admin: 03/14/20 19:24 Dose: 3 ml Admin: 03/14/20 15:23 Dose: 3 ml Admin: 03/14/20 11:39 Dose: 3 ml Admin: 03/14/20 08:16 Dose: 3 ml Admin: 03/13/20 19:20 Dose: 3 ml Admin: 03/13/20 16:01 Dose: 3 ml Admin: 03/13/20 11:47 Dose: 3 ml Admin: 03/13/20 08:31 Dose: 3 ml Admin: 03/12/20 19:51 Dose: 3 ml Admin: 03/12/20 15:35 Dose: 3 ml Admin: 03/12/20 11:42 Dose: 3 ml Admin: 03/12/20 08:20 Dose: 3 ml Admin: 03/11/20 19:32 Dose: 3 ml Admin: 03/11/20 16:55 Dose: 3 ml Admin: 03/11/20 11:54 Dose: 3 ml Admin: 03/11/20 08:44 Dose: 3 ml Admin: 03/10/20 19:35 Dose: 3 ml Admin: 03/10/20 16:09 Dose: 3 ml Admin: 03/10/20 11:33 Dose: 3 ml Admin: 03/10/20 08:12 Dose: 3 ml Admin: 03/09/20 19:24 Dose: 3 ml Admin: 03/09/20 15:21 Dose: 3 ml Admin: 03/09/20 12:09 Dose: 3 ml Admin: 03/09/20 08:25 Dose: 3 ml Admin: 03/08/20 19:11 Dose: 3 ml Admin: 03/08/20 16:51 Dose: 3 ml Admin: 03/08/20 12:39 Dose: 3 ml Admin: 03/08/20 09:21 Dose: 3 ml Admin: 03/07/20 19:48 Dose: 3 ml Admin: 03/07/20 15:25 Dose: 3 ml Admin: 03/07/20 11:36 Dose: 3 ml Admin: 03/07/20 08:14 Dose: 3 ml Admin: 03/06/20 19:24 Dose: 3 ml Admin: 03/06/20 15:26 Dose: 3 ml Admin: 03/06/20 11:15 Dose: 3 ml Admin: 03/06/20 07:52 Dose: 3 ml Admin: 03/05/20 19:14 Dose: 3 ml Admin: 03/05/20 16:53 Dose: 3 ml Admin: 03/05/20 11:55 Dose: 3 ml Admin: 03/05/20 08:09 Dose: 3 ml Admin: 03/04/20 19:17 Dose: 3 ml Admin: 03/04/20 15:08 Dose: 3 ml Admin: 03/04/20 11:22 Dose: 3 ml Admin: 03/04/20 07:29 Dose: 3 ml Admin: 03/03/20 19:15 Dose: 3 ml Admin: 03/03/20 15:22 Dose: 3 ml Admin: 03/03/20 11:21 Dose: 3 ml Admin: 03/03/20 08:19 Dose: 3 ml Admin: 03/02/20 19:24 Dose: 3 ml Admin: 03/02/20 15:43 Dose: 3 ml Admin: 03/02/20 11:29 Dose: 3 ml Admin: 03/02/20 08:35 Dose: 3 ml Admin: 03/01/20 19:25 Dose: 3 ml Admin: 03/01/20 15:36 Dose: 3 ml Admin: 03/01/20 11:36 Dose: 3 ml Admin: 03/01/20 08:25 Dose: 3 ml Admin: 02/29/20 19:20 Dose: 3 ml Admin: 02/29/20 15:12 Dose: 3 ml Admin: 02/29/20 11:16 Dose: 3 ml Admin: 02/29/20 08:02 Dose: 3 ml Admin: 02/28/20 19:55 Dose: 3 ml Admin: 02/28/20 16:34 Dose: 3 ml Admin: 02/28/20 12:15 Dose: 3 ml Admin: 02/28/20 08:01 Dose: 3 ml Admin: 02/27/20 19:27 Dose: 3 ml Admin: 02/27/20 16:34 Dose: 3 ml Admin: 02/27/20 11:55 Dose: 3 ml Admin: 02/27/20 08:15 Dose: 3 ml Admin: 02/26/20 19:49 Dose: 3 ml Admin: 02/26/20 16:26 Dose: 3 ml Admin: 02/26/20 12:03 Dose: 3 ml Admin: 02/26/20 08:21 Dose: 3 ml Admin: 02/25/20 19:33 Dose: 3 ml Admin: 02/25/20 16:07 Dose: 3 ml Admin: 02/25/20 11:17 Dose: 3 ml Admin: 02/25/20 07:54 Dose: 3 ml Admin: 02/24/20 19:25 Dose: 3 ml Admin: 02/24/20 15:58 Dose: 3 ml Admin: 02/24/20 11:59 Dose: 3 ml Admin: 02/24/20 08:25 Dose: 3 ml Admin: 02/23/20 19:41 Dose: 3 ml Admin: 02/23/20 16:45 Dose: 3 ml Admin: 02/23/20 11:28 Dose: 3 ml Admin: 02/23/20 08:30 Dose: 3 ml Admin: 02/22/20 19:14 Dose: 3 ml Admin: 02/22/20 15:07 Dose: 3 ml Admin: 02/22/20 11:46 Dose: 3 ml Admin: 02/22/20 08:16 Dose: 3 ml Admin: 02/21/20 19:17 Dose: 3 ml Admin: 02/21/20 15:18 Dose: 3 ml Admin: 02/21/20 11:50 Dose: 3 ml Admin: 02/21/20 07:55 Dose: 3 ml Admin: 02/20/20 19:33 Dose: 3 ml Admin: 02/20/20 16:31 Dose: 3 ml Admin: 02/20/20 11:48 Dose: 3 ml Admin: 02/20/20 08:13 Dose: 3 ml Admin: 02/19/20 19:29 Dose: 3 ml Admin: 02/19/20 16:54 Dose: 3 ml Admin: 02/19/20 12:06 Dose: 3 ml Admin: 02/19/20 08:20 Dose: 3 ml Admin: 02/18/20 21:54 Dose: 3 ml Admin: 02/18/20 15:40 Dose: 3 ml Admin: 02/18/20 11:30 Dose: 3 ml Admin: 02/18/20 08:16 Dose: 3 ml Admin: 02/17/20 19:39 Dose: 3 ml Admin: 02/17/20 16:20 Dose: 3 ml Admin: 02/17/20 11:42 Dose: 3 ml Admin: 02/17/20 08:29 Dose: 3 ml Admin: 02/16/20 19:36 Dose: 3 ml Admin: 02/16/20 15:20 Dose: 3 ml Admin: 02/16/20 11:24 Dose: 3 ml Admin: 02/16/20 08:13 Dose: 3 ml Admin: 02/15/20 19:14 Dose: 3 ml Admin: 02/15/20 15:30 Dose: 3 ml Admin: 02/15/20 11:02 Dose: 3 ml Admin: 02/15/20 07:00 Dose: 3 ml Admin: 02/14/20 19:15 Dose: 3 ml Admin: 02/14/20 16:47 Dose: 3 ml Admin: 02/14/20 11:10 Dose: 3 ml Admin: 02/14/20 08:28 Dose: 3 ml Admin: 02/13/20 19:09 Dose: 3 ml Admin: 02/13/20 15:09 Dose: 3 ml Admin: 02/13/20 11:18 Dose: 3 ml Admin: 02/13/20 07:47 Dose: 3 ml Admin: 02/12/20 19:19 Dose: 3 ml Admin: 02/12/20 15:12 Dose: 3 ml Admin: 02/12/20 11:12 Dose: 3 ml Admin: 02/12/20 07:06 Dose: 3 ml Admin: 02/11/20 19:16 Dose: 3 ml Admin: 02/11/20 14:59 Dose: 3 ml Admin: 02/11/20 11:16 Dose: 3 ml Admin: 02/11/20 07:14 Dose: 3 ml Admin: 02/10/20 19:25 Dose: 3 ml Admin: 02/10/20 16:00 Dose: 3 ml Admin: 02/10/20 11:17 Dose: 3 ml Admin: 02/10/20 08:33 Dose: 3 ml Admin: 02/09/20 19:47 Dose: 3 ml Admin: 02/09/20 16:35 Dose: 3 ml Admin: 02/09/20 11:32 Dose: 3 ml Admin: 02/09/20 08:40 Dose: 3 ml Admin: 02/08/20 19:38 Dose: 3 ml Admin: 02/08/20 15:02 Dose: 3 ml Admin: 02/08/20 11:17 Dose: 3 ml Admin: 02/08/20 07:13 Dose: 3 ml Admin: 02/07/20 19:37 Dose: 3 ml Admin: 02/07/20 15:16 Dose: 3 ml Admin: 02/07/20 11:54 Dose: 3 ml Admin: 02/07/20 08:28 Dose: 3 ml Admin: 02/06/20 19:33 Dose: 3 ml Admin: 02/06/20 16:25 Dose: 3 ml Admin: 02/06/20 11:37 Dose: 3 ml Admin: 02/06/20 08:12 Dose: 3 ml Admin: 02/05/20 19:10 Dose: 3 ml Admin: 02/05/20 16:20 Dose: 3 ml Admin: 02/05/20 12:04 Dose: 3 ml Admin: 02/05/20 08:17 Dose: 3 ml Admin: 02/04/20 19:43 Dose: 3 ml Admin: 02/04/20 15:50 Dose: 3 ml Admin: 02/04/20 11:35 Dose: 3 ml Admin: 02/04/20 09:05 Dose: 3 ml Admin: 02/03/20 19:34 Dose: 3 ml Admin: 02/03/20 15:50 Dose: 3 ml Admin: 02/03/20 11:24 Dose: 3 ml Admin: 02/03/20 07:27 Dose: 3 ml Admin: 02/02/20 19:23 Dose: 3 ml Admin: 02/02/20 15:24 Dose: 3 ml Admin: 02/02/20 11:15 Dose: 3 ml Admin: 02/02/20 07:05 Dose: 3 ml Admin: 02/01/20 19:35 Dose: 3 ml Admin: 02/01/20 15:29 Dose: 3 ml Admin: 02/01/20 11:25 Dose: 3 ml Admin: 02/01/20 07:06 Dose: 3 ml Admin: 01/31/20 19:33 Dose: 3 ml Admin: 01/31/20 15:43 Dose: 3 ml Admin: 01/31/20 11:25 Dose: 3 ml Admin: 01/31/20 07:05 Dose: 3 ml Admin: 01/30/20 19:34 Dose: 3 ml Admin: 01/30/20 15:45 Dose: 3 ml Admin: 01/30/20 11:43 Dose: 3 ml Admin: 01/30/20 08:07 Dose: 3 ml Admin: 01/29/20 19:35 Dose: 3 ml Admin: 01/29/20 16:37 Dose: 3 ml Admin: 01/29/20 11:43 Dose: 3 ml Admin: 01/29/20 08:00 Dose: 3 ml Admin: 01/28/20 19:52 Dose: 3 ml Admin: 01/28/20 15:48 Dose: 3 ml Admin: 01/28/20 11:58 Dose: 3 ml Admin: 01/28/20 07:54 Dose: 3 ml Admin: 01/27/20 19:10 Dose: 3 ml Admin: 01/27/20 15:46 Dose: 3 ml Admin: 01/27/20 11:09 Dose: 3 ml Admin: 01/27/20 07:03 Dose: 3 ml Admin: 01/26/20 19:31 Dose: 3 ml Admin: 01/26/20 16:02 Dose: 3 ml Admin: 01/26/20 11:39 Dose: 3 ml Admin: 01/26/20 07:30 Dose: 3 ml Admin: 01/25/20 19:32 Dose: 3 ml Admin: 01/25/20 15:22 Dose: 3 ml Admin: 01/25/20 11:03 Dose: 3 ml Admin: 01/25/20 07:09 Dose: 3 ml Admin: 01/24/20 20:01 Dose: 3 ml Admin: 01/24/20 15:08 Dose: 3 ml Admin: 01/24/20 11:13 Dose: 3 ml Admin: 01/24/20 07:56 Dose: 3 ml Admin: 01/23/20 19:22 Dose: 3 ml Admin: 01/23/20 15:03 Dose: 3 ml Admin: 01/23/20 11:06 Dose: 3 ml Admin: 01/23/20 07:08 Dose: 3 ml Admin: 01/22/20 19:14 Dose: 3 ml Admin: 01/22/20 15:04 Dose: 3 ml Admin: 01/22/20 11:20 Dose: 3 ml Admin: 01/22/20 07:14 Dose: 3 ml Admin: 01/21/20 19:27 Dose: 3 ml Admin: 01/21/20 16:33 Dose: 3 ml Admin: 01/21/20 11:25 Dose: 3 ml Admin: 01/21/20 08:00 Dose: 3 ml Admin: 01/20/20 19:26 Dose: 3 ml Admin: 01/20/20 17:33 Dose: 3 ml Admin: 01/20/20 11:13 Dose: 3 ml Admin: 01/20/20 08:00 Dose: 3 ml Admin: 01/19/20 19:16 Dose: 3 ml Admin: 01/19/20 16:23 Dose: 3 ml Admin: 01/19/20 11:01 Dose: 3 ml Admin: 01/19/20 07:55 Dose: 3 ml Admin: 01/18/20 19:36 Dose: 3 ml Admin: 01/18/20 15:06 Dose: 3 ml Admin: 01/18/20 11:20 Dose: 3 ml Admin: 01/18/20 08:04 Dose: 3 ml Admin: 01/17/20 19:50 Dose: 3 ml Admin: 01/17/20 16:50 Dose: 3 ml Admin: 01/17/20 11:09 Dose: 3 ml Admin: 01/17/20 08:07 Dose: 3 ml Admin: 01/16/20 20:08 Dose: 3 ml Admin: 01/16/20 16:01 Dose: 3 ml Admin: 01/16/20 11:26 Dose: 3 ml Admin: 01/16/20 08:18 Dose: 3 ml Admin: 01/15/20 19:52 Dose: 3 ml Admin: 01/15/20 15:55 Dose: 3 ml Admin: 01/15/20 12:00 Dose: 3 ml Admin: 01/15/20 07:17 Dose: 3 ml Admin: 01/14/20 19:34 Dose: 3 ml Admin: 01/14/20 15:53 Dose: 3 ml Admin: 01/14/20 11:30 Dose: 3 ml Admin: 01/14/20 08:09 Dose: 3 ml Admin: 01/13/20 19:14 Dose: 3 ml Admin: 01/13/20 16:38 Dose: 3 ml Admin: 01/13/20 11:03 Dose: 3 ml Admin: 01/13/20 08:20 Dose: 3 ml Admin: 01/12/20 19:26 Dose: 3 ml Admin: 01/12/20 16:14 Dose: 3 ml Admin: 01/12/20 11:35 Dose: 3 ml Admin: 01/12/20 08:18 Dose: 3 ml Admin: 01/11/20 19:37 Dose: 3 ml Admin: 01/11/20 17:28 Dose: 3 ml Admin: 01/11/20 11:33 Dose: 3 ml Admin: 01/11/20 07:52 Dose: 3 ml Admin: 01/10/20 19:33 Dose: 3 ml Admin: 01/10/20 16:01 Dose: 3 ml Admin: 01/10/20 11:52 Dose: 3 ml Admin: 01/10/20 08:32 Dose: 3 ml Admin: 01/09/20 19:15 Dose: 3 ml Admin: 01/09/20 16:01 Dose: 3 ml Admin: 01/09/20 11:03 Dose: 3 ml Admin: 01/09/20 08:08 Dose: 3 ml Admin: 01/08/20 19:22 Dose: 3 ml Admin: 01/08/20 15:59 Dose: 3 ml Admin: 01/08/20 11:22 Dose: 3 ml Admin: 01/08/20 08:10 Dose: 3 ml Admin: 01/07/20 19:16 Dose: 3 ml Admin: 01/07/20 15:40 Dose: 3 ml Admin: 01/07/20 11:23 Dose: 3 ml Admin: 01/07/20 08:16 Dose: 3 ml Admin: 01/06/20 19:44 Dose: 3 ml Admin: 01/06/20 17:10 Dose: 3 ml Admin: 01/06/20 12:01 Dose: 3 ml Admin: 01/06/20 08:26 Dose: 3 ml Admin: 01/05/20 19:56 Dose: 3 ml Admin: 01/05/20 16:15 Dose: 3 ml Admin: 01/05/20 12:05 Dose: 3 ml Admin: 01/05/20 07:59 Dose: 3 ml Admin: 01/04/20 19:45 Dose: 3 ml Admin: 01/04/20 15:55 Dose: 3 ml Admin: 01/04/20 11:26 Dose: Not Given Admin: 01/04/20 07:55 Dose: 3 ml Admin: 01/03/20 20:04 Dose: 3 ml Admin: 01/03/20 16:00 Dose: Not Given Admin: 01/03/20 12:01 Dose: 3 ml Admin: 01/03/20 08:16 Dose: 3 ml Admin: 01/02/20 19:20 Dose: 3 ml Admin: 01/02/20 15:16 Dose: 3 ml Admin: 01/02/20 11:37 Dose: 3 ml Admin: 01/02/20 07:59 Dose: 3 ml Admin: 01/01/20 19:50 Dose: 3 ml Admin: 01/01/20 15:11 Dose: 3 ml Admin: 01/01/20 11:14 Dose: 3 ml Admin: 01/01/20 07:11 Dose: 3 ml Admin: 12/31/19 19:49 Dose: 3 ml Admin: 12/31/19 16:07 Dose: 3 ml Admin: 12/31/19 12:02 Dose: 3 ml Admin: 12/31/19 08:06 Dose: 3 ml Admin: 12/30/19 19:48 Dose: 3 ml Admin: 12/30/19 16:20 Dose: 3 ml Admin: 12/30/19 11:27 Dose: 3 ml Admin: 12/30/19 07:07 Dose: 3 ml Admin: 12/29/19 19:45 Dose: 3 ml Admin: 12/29/19 15:59 Dose: 3 ml Admin: 12/29/19 11:11 Dose: 3 ml Admin: 12/29/19 08:19 Dose: 3 ml Admin: 12/28/19 19:31 Dose: 3 ml Admin: 12/28/19 15:15 Dose: 3 ml Admin: 12/28/19 11:16 Dose: 3 ml Admin: 12/28/19 08:01 Dose: 3 ml Admin: 12/27/19 19:16 Dose: 3 ml Admin: 12/27/19 15:30 Dose: 3 ml Admin: 12/27/19 11:29 Dose: 3 ml Admin: 12/27/19 07:56 Dose: 3 ml Admin: 12/26/19 19:20 Dose: 3 ml Admin: 12/26/19 17:10 Dose: 3 ml Admin: 12/26/19 12:10 Dose: 3 ml Admin: 12/26/19 07:58 Dose: 3 ml Admin: 12/25/19 19:10 Dose: 3 ml Admin: 12/25/19 15:18 Dose: 3 ml Admin: 12/25/19 11:54 Dose: 3 ml Admin: 12/25/19 07:54 Dose: 3 ml Admin: 12/24/19 19:16 Dose: 3 ml Admin: 12/24/19 15:06 Dose: 3 ml Admin: 12/24/19 11:42 Dose: 3 ml Admin: 12/24/19 07:51 Dose: 3 ml Admin: 12/23/19 19:17 Dose: 3 ml Admin: 12/23/19 16:02 Dose: 3 ml Admin: 12/23/19 11:21 Dose: 3 ml Admin: 12/23/19 08:05 Dose: 3 ml Admin: 12/22/19 19:12 Dose: 3 ml Admin: 12/22/19 15:15 Dose: 3 ml Admin: 12/22/19 11:48 Dose: 3 ml Admin: 12/22/19 07:02 Dose: 3 ml Admin: 12/21/19 19:42 Dose: 3 ml Admin: 12/21/19 15:24 Dose: 3 ml Calcium Carbonate/Glycine (Tums Extra Strength) 1,500 mg PO DAILY MIESHA Last Admin: 04/13/20 07:26 Dose: 1,500 mg Admin: 04/12/20 07:47 Dose: 1,500 mg Admin: 04/11/20 08:12 Dose: 1,500 mg Admin: 04/10/20 07:48 Dose: 1,500 mg Admin: 04/09/20 07:24 Dose: 1,500 mg Admin: 04/08/20 07:25 Dose: 1,500 mg Admin: 04/07/20 08:18 Dose: 1,500 mg Admin: 04/06/20 08:10 Dose: 1,500 mg Admin: 04/05/20 07:46 Dose: 1,500 mg Admin: 04/04/20 08:35 Dose: 1,500 mg Admin: 04/03/20 07:46 Dose: 1,500 mg Admin: 04/02/20 07:50 Dose: 1,500 mg Admin: 04/01/20 07:55 Dose: 1,500 mg Admin: 03/31/20 08:21 Dose: 1,500 mg Admin: 03/30/20 08:40 Dose: 1,500 mg Admin: 03/29/20 07:20 Dose: 1,500 mg Admin: 03/28/20 07:32 Dose: 1,500 mg Admin: 03/27/20 08:19 Dose: 1,500 mg Admin: 03/26/20 07:41 Dose: 1,500 mg Admin: 03/25/20 07:27 Dose: 1,500 mg Admin: 03/24/20 08:02 Dose: 1,500 mg Admin: 03/23/20 08:06 Dose: 1,500 mg Admin: 03/22/20 07:37 Dose: 1,500 mg Admin: 03/21/20 08:09 Dose: 1,500 mg Admin: 03/20/20 07:42 Dose: 1,500 mg Admin: 03/19/20 08:05 Dose: 1,500 mg Admin: 03/18/20 08:29 Dose: 1,500 mg Admin: 03/17/20 08:05 Dose: 1,500 mg Admin: 03/16/20 08:36 Dose: 1,500 mg Admin: 03/15/20 08:21 Dose: 1,500 mg Admin: 03/14/20 08:20 Dose: 1,500 mg Admin: 03/13/20 08:34 Dose: 1,500 mg Admin: 03/12/20 08:21 Dose: 1,500 mg Admin: 03/11/20 08:45 Dose: 1,500 mg Admin: 03/10/20 08:16 Dose: 1,500 mg Admin: 03/09/20 08:27 Dose: 1,500 mg Admin: 03/08/20 09:20 Dose: 1,500 mg Admin: 03/07/20 08:16 Dose: 1,500 mg Admin: 03/06/20 07:54 Dose: 1,500 mg Admin: 03/05/20 08:10 Dose: 1,500 mg Admin: 03/04/20 07:31 Dose: 1,500 mg Admin: 03/03/20 08:19 Dose: 1,500 mg Admin: 03/02/20 08:37 Dose: 1,500 mg Admin: 03/01/20 08:26 Dose: 1,500 mg Admin: 02/29/20 08:04 Dose: 1,500 mg Admin: 02/28/20 08:00 Dose: 1,500 mg Admin: 02/27/20 08:16 Dose: 1,500 mg Admin: 02/26/20 08:22 Dose: 1,500 mg Admin: 02/25/20 07:57 Dose: 1,500 mg Admin: 02/24/20 08:25 Dose: 1,500 mg Admin: 02/23/20 08:31 Dose: 1,500 mg Admin: 02/22/20 08:22 Dose: 1,500 mg Admin: 02/21/20 07:59 Dose: 1,500 mg Admin: 02/20/20 08:14 Dose: 1,500 mg Admin: 02/19/20 08:19 Dose: 1,500 mg Admin: 02/18/20 08:19 Dose: 1,500 mg Admin: 02/17/20 08:31 Dose: 1,500 mg Admin: 02/16/20 08:25 Dose: 1,500 mg Admin: 02/15/20 07:02 Dose: 1,500 mg Admin: 02/14/20 08:28 Dose: 1,500 mg Admin: 02/13/20 07:50 Dose: 1,500 mg Admin: 02/12/20 07:07 Dose: 1,500 mg Admin: 02/11/20 07:14 Dose: 1,500 mg Admin: 02/10/20 08:34 Dose: 1,500 mg Admin: 02/09/20 08:42 Dose: 1,500 mg Admin: 02/08/20 07:16 Dose: 1,500 mg Admin: 02/07/20 08:28 Dose: 1,500 mg Admin: 02/06/20 08:12 Dose: 1,500 mg Admin: 02/05/20 08:18 Dose: 1,500 mg Admin: 02/04/20 09:06 Dose: 1,500 mg Admin: 02/03/20 07:29 Dose: 1,500 mg Admin: 02/02/20 07:07 Dose: 1,500 mg Admin: 02/01/20 07:08 Dose: 1,500 mg Admin: 01/31/20 07:05 Dose: 1,500 mg Admin: 01/30/20 08:08 Dose: 1,500 mg Admin: 01/29/20 08:01 Dose: 1,500 mg Admin: 01/28/20 07:56 Dose: 1,500 mg Admin: 01/27/20 07:04 Dose: 1,500 mg Admin: 01/26/20 07:32 Dose: 1,500 mg Admin: 01/25/20 07:12 Dose: 1,500 mg Admin: 01/24/20 07:57 Dose: 1,500 mg Admin: 01/23/20 07:09 Dose: 1,500 mg Admin: 01/22/20 07:15 Dose: 1,500 mg Admin: 01/21/20 08:01 Dose: 1,500 mg Admin: 01/20/20 08:02 Dose: 1,500 mg Admin: 01/19/20 07:56 Dose: 1,500 mg Admin: 01/18/20 08:05 Dose: 1,500 mg Admin: 01/17/20 08:08 Dose: 1,500 mg Admin: 01/16/20 08:20 Dose: 1,500 mg Admin: 01/15/20 08:19 Dose: 1,500 mg Admin: 01/14/20 08:10 Dose: 1,500 mg Admin: 01/13/20 08:21 Dose: 1,500 mg Admin: 01/12/20 08:19 Dose: 1,500 mg Admin: 01/11/20 07:53 Dose: 1,500 mg Admin: 01/10/20 08:32 Dose: 1,500 mg Admin: 01/09/20 08:09 Dose: 1,500 mg Admin: 01/08/20 08:12 Dose: 1,500 mg Admin: 01/07/20 08:13 Dose: 1,500 mg Admin: 01/06/20 08:24 Dose: 1,500 mg Admin: 01/05/20 08:02 Dose: 1,500 mg Admin: 01/04/20 07:55 Dose: 1,500 mg Admin: 01/03/20 08:13 Dose: 1,500 mg Admin: 01/02/20 08:00 Dose: 1,500 mg Admin: 01/01/20 07:13 Dose: 1,500 mg Admin: 12/31/19 08:07 Dose: 1,500 mg Admin: 12/30/19 08:02 Dose: 1,500 mg Admin: 12/29/19 08:20 Dose: 1,500 mg Admin: 12/28/19 08:02 Dose: 1,500 mg Admin: 12/27/19 07:57 Dose: 1,500 mg Admin: 12/26/19 08:00 Dose: 1,500 mg Admin: 12/25/19 07:53 Dose: 1,500 mg Admin: 12/24/19 07:52 Dose: 1,500 mg Admin: 12/23/19 08:06 Dose: 1,500 mg Admin: 12/22/19 07:03 Dose: 1,500 mg Admin: 12/21/19 07:23 Dose: 1,500 mg Admin: 12/20/19 07:16 Dose: 1,500 mg Admin: 12/19/19 07:46 Dose: 1,500 mg Admin: 12/18/19 08:08 Dose: 1,500 mg Admin: 12/17/19 07:55 Dose: 1,500 mg Admin: 12/16/19 07:31 Dose: 1,500 mg Admin: 12/15/19 07:06 Dose: 1,500 mg Admin: 12/14/19 07:37 Dose: 1,500 mg Admin: 12/13/19 08:02 Dose: 1,500 mg Admin: 12/12/19 07:09 Dose: 1,500 mg Admin: 12/11/19 07:10 Dose: 1,500 mg Admin: 12/10/19 07:51 Dose: 1,500 mg Admin: 12/09/19 07:51 Dose: 1,500 mg Admin: 12/08/19 08:49 Dose: 1,500 mg Admin: 12/07/19 07:59 Dose: 1,500 mg Admin: 12/06/19 08:09 Dose: 1,500 mg Admin: 12/05/19 08:11 Dose: 1,500 mg Admin: 12/04/19 08:18 Dose: 1,500 mg Admin: 12/03/19 08:12 Dose: 1,500 mg Admin: 12/02/19 08:07 Dose: 1,500 mg Admin: 12/01/19 07:22 Dose: 1,500 mg Admin: 11/30/19 08:08 Dose: 1,500 mg Admin: 11/29/19 07:19 Dose: 1,500 mg Admin: 11/28/19 08:11 Dose: 1,500 mg Admin: 11/27/19 08:10 Dose: 1,500 mg Admin: 11/26/19 08:18 Dose: 1,500 mg Admin: 11/25/19 07:10 Dose: 1,500 mg Admin: 11/24/19 08:26 Dose: 1,500 mg Admin: 11/23/19 07:03 Dose: 1,500 mg Admin: 11/22/19 07:46 Dose: 1,500 mg Admin: 11/21/19 07:12 Dose: 1,500 mg Admin: 11/20/19 08:00 Dose: 1,500 mg Admin: 11/19/19 07:59 Dose: 1,500 mg Admin: 11/18/19 07:11 Dose: 1,500 mg Admin: 11/17/19 08:10 Dose: 1,500 mg Admin: 11/16/19 08:03 Dose: 1,500 mg Admin: 11/15/19 07:38 Dose: 1,500 mg Admin: 11/14/19 07:52 Dose: 1,500 mg Admin: 11/13/19 07:52 Dose: 1,500 mg Admin: 11/12/19 08:04 Dose: 1,500 mg Admin: 11/11/19 07:46 Dose: 1,500 mg Cholecalciferol (Vitamin D3) 25 mcg PO DAILY MIESHA Last Admin: 04/13/20 07:27 Dose: 25 mcg Admin: 04/12/20 07:47 Dose: 25 mcg Admin: 04/11/20 08:12 Dose: 25 mcg Admin: 04/10/20 07:48 Dose: 25 mcg Admin: 04/09/20 07:25 Dose: 25 mcg Admin: 04/08/20 07:27 Dose: 25 mcg Admin: 04/07/20 08:18 Dose: 25 mcg Admin: 04/06/20 08:09 Dose: 25 mcg Admin: 04/05/20 07:48 Dose: 25 mcg Admin: 04/04/20 08:35 Dose: 25 mcg Admin: 04/03/20 07:47 Dose: 25 mcg Admin: 04/02/20 07:51 Dose: 25 mcg Admin: 04/01/20 07:55 Dose: 25 mcg Admin: 03/31/20 08:22 Dose: 25 mcg Admin: 03/30/20 08:41 Dose: 25 mcg Admin: 03/29/20 07:23 Dose: 25 mcg Admin: 03/28/20 07:32 Dose: 25 mcg Admin: 03/27/20 08:20 Dose: 25 mcg Admin: 03/26/20 07:41 Dose: 25 mcg Admin: 03/25/20 07:27 Dose: 25 mcg Admin: 03/24/20 08:02 Dose: 25 mcg Admin: 03/23/20 08:07 Dose: 25 mcg Admin: 03/22/20 07:38 Dose: 25 mcg Admin: 03/21/20 08:10 Dose: 25 mcg Admin: 03/20/20 07:42 Dose: 25 mcg Admin: 03/19/20 08:05 Dose: 25 mcg Admin: 03/18/20 08:30 Dose: 25 mcg Admin: 03/17/20 08:06 Dose: 25 mcg Admin: 03/16/20 08:37 Dose: 25 mcg Admin: 03/15/20 08:22 Dose: 25 mcg Admin: 03/14/20 08:21 Dose: 25 mcg Admin: 03/13/20 08:35 Dose: 25 mcg Admin: 03/12/20 08:22 Dose: 25 mcg Admin: 03/11/20 08:45 Dose: 25 mcg Admin: 03/10/20 08:17 Dose: 25 mcg Admin: 03/09/20 08:28 Dose: 25 mcg Admin: 03/08/20 09:20 Dose: 25 mcg Admin: 03/07/20 08:18 Dose: 25 mcg Admin: 03/06/20 07:55 Dose: 25 mcg Admin: 03/05/20 08:11 Dose: 25 mcg Admin: 03/04/20 07:31 Dose: 25 mcg Admin: 03/03/20 08:20 Dose: 25 mcg Admin: 03/02/20 08:37 Dose: 25 mcg Admin: 03/01/20 08:27 Dose: 25 mcg Admin: 02/29/20 08:05 Dose: 25 mcg Admin: 02/28/20 08:01 Dose: 25 mcg Admin: 02/27/20 08:18 Dose: 25 mcg Admin: 02/26/20 08:21 Dose: 25 mcg Admin: 02/25/20 07:58 Dose: 25 mcg Admin: 02/24/20 08:26 Dose: 25 mcg Admin: 02/23/20 08:31 Dose: 25 mcg Admin: 02/22/20 08:23 Dose: 25 mcg Admin: 02/21/20 08:01 Dose: 25 mcg Admin: 02/20/20 08:14 Dose: 25 mcg Admin: 02/19/20 08:19 Dose: 25 mcg Admin: 02/18/20 08:20 Dose: 25 mcg Admin: 02/17/20 08:32 Dose: 25 mcg Admin: 02/16/20 08:25 Dose: 25 mcg Admin: 02/15/20 07:02 Dose: 25 mcg Admin: 02/14/20 08:29 Dose: 25 mcg Admin: 02/13/20 07:51 Dose: 25 mcg Admin: 02/12/20 07:08 Dose: 25 mcg Admin: 02/11/20 07:17 Dose: 25 mcg Admin: 02/10/20 08:35 Dose: 25 mcg Admin: 02/09/20 08:42 Dose: 25 mcg Admin: 02/08/20 07:16 Dose: 25 mcg Admin: 02/07/20 08:29 Dose: 25 mcg Admin: 02/06/20 08:13 Dose: 25 mcg Admin: 02/05/20 08:19 Dose: 25 mcg Admin: 02/04/20 09:07 Dose: 25 mcg Admin: 02/03/20 07:30 Dose: 25 mcg Admin: 02/02/20 07:07 Dose: 25 mcg Admin: 02/01/20 07:09 Dose: 25 mcg Admin: 01/31/20 07:07 Dose: 25 mcg Admin: 01/30/20 08:08 Dose: 25 mcg Admin: 01/29/20 08:02 Dose: 25 mcg Admin: 01/28/20 07:57 Dose: 25 mcg Admin: 01/27/20 07:06 Dose: 25 mcg Admin: 01/26/20 07:33 Dose: 25 mcg Admin: 01/25/20 07:13 Dose: 25 mcg Admin: 01/24/20 07:57 Dose: 25 mcg Admin: 01/23/20 07:10 Dose: 25 mcg Admin: 01/22/20 07:16 Dose: 25 mcg Admin: 01/21/20 08:01 Dose: 25 mcg Admin: 01/20/20 08:01 Dose: 25 mcg Admin: 01/19/20 07:57 Dose: 25 mcg Admin: 01/18/20 08:06 Dose: 25 mcg Admin: 01/17/20 08:09 Dose: 25 mcg Admin: 01/16/20 08:22 Dose: 25 mcg Admin: 01/15/20 08:20 Dose: 25 mcg Admin: 01/14/20 08:11 Dose: 25 mcg Admin: 01/13/20 08:22 Dose: 25 mcg Admin: 01/12/20 08:20 Dose: 25 mcg Admin: 01/11/20 07:53 Dose: 25 mcg Admin: 01/10/20 08:33 Dose: 25 mcg Admin: 01/09/20 08:10 Dose: 25 mcg Admin: 01/08/20 08:13 Dose: 25 mcg Admin: 01/07/20 08:14 Dose: 25 mcg Admin: 01/06/20 08:25 Dose: 25 mcg Admin: 01/05/20 08:02 Dose: 25 mcg Admin: 01/04/20 07:56 Dose: 25 mcg Admin: 01/03/20 08:15 Dose: 25 mcg Admin: 01/02/20 08:01 Dose: 25 mcg Admin: 01/01/20 07:14 Dose: 25 mcg Admin: 12/31/19 08:07 Dose: 25 mcg Admin: 12/30/19 08:04 Dose: 25 mcg Admin: 12/29/19 08:22 Dose: 25 mcg Admin: 12/28/19 08:03 Dose: 25 mcg Admin: 12/27/19 07:58 Dose: 25 mcg Admin: 12/26/19 07:59 Dose: 25 mcg Admin: 12/25/19 07:54 Dose: 25 mcg Admin: 12/24/19 07:52 Dose: 25 mcg Admin: 12/23/19 08:06 Dose: 25 mcg Admin: 12/22/19 07:04 Dose: 25 mcg Admin: 12/21/19 07:25 Dose: 25 mcg Admin: 12/20/19 07:16 Dose: 25 mcg Admin: 12/19/19 07:47 Dose: 25 mcg Admin: 12/18/19 08:09 Dose: 25 mcg Admin: 12/17/19 07:55 Dose: 25 mcg Admin: 12/16/19 07:31 Dose: 25 mcg Admin: 12/15/19 07:07 Dose: 25 mcg Admin: 12/14/19 07:38 Dose: 25 mcg Admin: 12/13/19 08:02 Dose: 25 mcg Admin: 12/12/19 07:09 Dose: 25 mcg Admin: 12/11/19 07:11 Dose: 25 mcg Admin: 12/10/19 07:52 Dose: 25 mcg Admin: 12/09/19 07:51 Dose: 25 mcg Admin: 12/08/19 08:50 Dose: 25 mcg Admin: 12/07/19 08:00 Dose: 25 mcg Admin: 12/06/19 08:09 Dose: 25 mcg Admin: 12/05/19 08:12 Dose: 25 mcg Admin: 12/04/19 08:19 Dose: 25 mcg Admin: 12/03/19 08:13 Dose: 25 mcg Admin: 12/02/19 08:13 Dose: 25 mcg Admin: 12/01/19 07:22 Dose: 25 mcg Admin: 11/30/19 08:09 Dose: 25 mcg Admin: 11/29/19 07:20 Dose: 25 mcg Admin: 11/28/19 08:12 Dose: 25 mcg Admin: 11/27/19 08:12 Dose: 25 mcg Admin: 11/26/19 08:20 Dose: 25 mcg Admin: 11/25/19 07:14 Dose: 25 mcg Admin: 11/24/19 08:26 Dose: 25 mcg Admin: 11/23/19 07:03 Dose: 25 mcg Admin: 11/22/19 07:48 Dose: 25 mcg Admin: 11/21/19 07:18 Dose: 25 mcg Admin: 11/20/19 08:01 Dose: 25 mcg Admin: 11/19/19 08:00 Dose: 25 mcg Admin: 11/18/19 07:12 Dose: 25 mcg Admin: 11/17/19 08:10 Dose: 25 mcg Admin: 11/16/19 08:04 Dose: 25 mcg Admin: 11/15/19 07:38 Dose: 25 mcg Admin: 11/14/19 07:52 Dose: 25 mcg Admin: 11/13/19 07:51 Dose: 25 mcg Admin: 11/12/19 08:05 Dose: 25 mcg Admin: 11/11/19 07:47 Dose: 25 mcg Admin: 11/10/19 07:07 Dose: 25 mcg Admin: 11/09/19 07:07 Dose: 25 mcg Admin: 11/08/19 07:34 Dose: 25 mcg Admin: 11/07/19 07:42 Dose: 25 mcg Admin: 11/06/19 07:42 Dose: 25 mcg Admin: 11/05/19 07:46 Dose: 25 mcg Admin: 11/04/19 07:58 Dose: 25 mcg Admin: 11/03/19 07:55 Dose: 25 mcg Admin: 11/02/19 08:06 Dose: 25 mcg Admin: 11/01/19 08:26 Dose: 25 mcg Admin: 10/31/19 07:23 Dose: 25 mcg Admin: 10/30/19 07:18 Dose: 25 mcg Admin: 10/29/19 07:23 Dose: 25 mcg Admin: 10/28/19 08:10 Dose: 25 mcg Admin: 10/27/19 08:09 Dose: 25 mcg Admin: 10/26/19 08:00 Dose: 25 mcg Admin: 10/25/19 07:35 Dose: 25 mcg Admin: 10/24/19 07:56 Dose: 25 mcg Admin: 10/23/19 08:22 Dose: 25 mcg Admin: 10/22/19 07:57 Dose: 25 mcg Admin: 10/21/19 07:57 Dose: 25 mcg Admin: 10/20/19 08:01 Dose: 25 mcg Admin: 10/19/19 07:26 Dose: 25 mcg Admin: 10/18/19 08:07 Dose: 25 mcg Admin: 10/17/19 08:02 Dose: 25 mcg Admin: 10/16/19 08:02 Dose: 25 mcg Admin: 10/15/19 08:13 Dose: 25 mcg Admin: 10/14/19 08:26 Dose: 25 mcg Admin: 10/13/19 07:30 Dose: 25 mcg Admin: 10/12/19 07:29 Dose: 25 mcg Admin: 10/11/19 07:25 Dose: 25 mcg Admin: 10/10/19 07:55 Dose: 25 mcg Admin: 10/09/19 07:16 Dose: 25 mcg Admin: 10/08/19 07:49 Dose: 25 mcg Admin: 10/07/19 08:17 Dose: 25 mcg Admin: 10/06/19 07:58 Dose: 25 mcg Admin: 10/05/19 07:51 Dose: 25 mcg Admin: 10/04/19 08:21 Dose: 25 mcg Admin: 10/03/19 07:51 Dose: 25 mcg Admin: 10/02/19 08:13 Dose: 25 mcg Admin: 10/01/19 08:16 Dose: 25 mcg Admin: 09/30/19 07:41 Dose: 25 mcg Admin: 09/29/19 07:33 Dose: 25 mcg Admin: 09/28/19 08:15 Dose: 25 mcg Admin: 09/27/19 07:36 Dose: 25 mcg Admin: 09/26/19 07:39 Dose: 25 mcg Admin: 09/25/19 07:39 Dose: 25 mcg Admin: 09/24/19 07:37 Dose: 25 mcg Admin: 09/23/19 09:03 Dose: 25 mcg Admin: 09/22/19 08:10 Dose: 25 mcg Admin: 09/21/19 07:48 Dose: 25 mcg Admin: 09/20/19 08:00 Dose: 25 mcg Admin: 09/19/19 07:18 Dose: 25 mcg Admin: 09/18/19 07:27 Dose: 25 mcg Admin: 09/17/19 07:30 Dose: 25 mcg Admin: 09/16/19 08:18 Dose: 25 mcg Admin: 09/15/19 07:31 Dose: 25 mcg Admin: 09/14/19 08:17 Dose: 25 mcg Admin: 09/13/19 07:30 Dose: 25 mcg Admin: 09/12/19 07:49 Dose: 25 mcg Admin: 09/11/19 07:47 Dose: 25 mcg Admin: 09/10/19 08:11 Dose: 25 mcg Admin: 09/09/19 08:18 Dose: 25 mcg Admin: 09/08/19 07:23 Dose: 25 mcg Admin: 09/07/19 07:45 Dose: 25 mcg Admin: 09/06/19 08:08 Dose: 25 mcg Admin: 09/05/19 07:30 Dose: 25 mcg Admin: 09/04/19 07:29 Dose: 25 mcg Admin: 09/03/19 07:39 Dose: 25 mcg Admin: 09/02/19 08:35 Dose: 25 mcg Admin: 09/01/19 07:33 Dose: 25 mcg Admin: 08/31/19 07:49 Dose: 25 mcg Admin: 08/30/19 07:28 Dose: 25 mcg Admin: 08/29/19 07:30 Dose: 25 mcg Admin: 08/28/19 07:48 Dose: 25 mcg Admin: 08/27/19 08:01 Dose: 25 mcg Admin: 08/26/19 08:03 Dose: 25 mcg Admin: 08/25/19 07:58 Dose: 25 mcg Admin: 08/24/19 08:17 Dose: 25 mcg Admin: 08/23/19 07:31 Dose: 25 mcg Admin: 08/22/19 08:09 Dose: 25 mcg Admin: 08/21/19 07:55 Dose: 25 mcg Admin: 08/20/19 07:56 Dose: 25 mcg Admin: 08/19/19 07:14 Dose: 25 mcg Admin: 08/18/19 07:30 Dose: 25 mcg Admin: 08/17/19 07:51 Dose: 25 mcg Admin: 08/16/19 07:35 Dose: 25 mcg Admin: 08/15/19 07:36 Dose: 25 mcg Admin: 08/14/19 07:53 Dose: 25 mcg Admin: 08/13/19 08:00 Dose: 25 mcg Admin: 08/12/19 07:52 Dose: 25 mcg Admin: 08/11/19 07:28 Dose: 25 mcg Admin: 08/10/19 07:47 Dose: 25 mcg Admin: 08/09/19 07:40 Dose: 25 mcg Admin: 08/08/19 07:16 Dose: 25 mcg Admin: 08/07/19 07:33 Dose: 25 mcg Admin: 08/06/19 07:29 Dose: 25 mcg Admin: 08/05/19 07:54 Dose: 25 mcg Admin: 08/04/19 07:54 Dose: 25 mcg Admin: 08/03/19 08:03 Dose: 25 mcg Admin: 08/02/19 14:37 Dose: Admin: 08/01/19 07:55 Dose: 25 mcg Admin: 07/31/19 07:38 Dose: 25 mcg Admin: 07/30/19 08:06 Dose: 25 mcg Admin: 07/29/19 07:21 Dose: 25 mcg Admin: 07/28/19 07:38 Dose: 25 mcg Admin: 07/27/19 07:41 Dose: 25 mcg Admin: 07/26/19 08:03 Dose: 25 mcg Admin: 07/25/19 07:54 Dose: 25 mcg Admin: 07/24/19 07:34 Dose: 25 mcg Admin: 07/23/19 08:22 Dose: 25 mcg Admin: 07/22/19 08:11 Dose: 25 mcg Admin: 07/21/19 08:18 Dose: 25 mcg Admin: 07/20/19 08:00 Dose: 25 mcg Admin: 07/19/19 07:32 Dose: 25 mcg Admin: 07/18/19 07:34 Dose: 25 mcg Admin: 07/17/19 07:35 Dose: 25 mcg Admin: 07/16/19 07:35 Dose: 25 mcg Admin: 07/15/19 08:04 Dose: 25 mcg Admin: 07/14/19 08:00 Dose: 25 mcg Admin: 07/13/19 08:01 Dose: 25 mcg Admin: 07/12/19 07:30 Dose: 25 mcg Admin: 07/11/19 07:53 Dose: 25 mcg Admin: 07/10/19 08:02 Dose: 25 mcg Admin: 07/09/19 07:26 Dose: 25 mcg Admin: 07/08/19 07:27 Dose: 25 mcg Admin: 07/07/19 08:03 Dose: 25 mcg Admin: 07/06/19 07:57 Dose: 25 mcg Admin: 07/05/19 07:48 Dose: 25 mcg Admin: 07/04/19 07:29 Dose: 25 mcg Admin: 07/03/19 07:47 Dose: 25 mcg Admin: 07/02/19 08:28 Dose: 25 mcg Admin: 07/01/19 08:28 Dose: 25 mcg Admin: 06/30/19 08:11 Dose: 25 mcg Admin: 06/29/19 07:50 Dose: 25 mcg Admin: 06/28/19 07:52 Dose: 25 mcg Admin: 06/27/19 07:54 Dose: 25 mcg Admin: 06/26/19 08:03 Dose: 25 mcg Admin: 06/25/19 08:11 Dose: 25 mcg Admin: 06/24/19 07:46 Dose: 25 mcg Admin: 06/23/19 08:12 Dose: 25 mcg Admin: 06/22/19 07:35 Dose: 25 mcg Admin: 06/21/19 07:23 Dose: 25 mcg Admin: 06/20/19 07:21 Dose: 25 mcg Admin: 06/19/19 07:25 Dose: 25 mcg Admin: 06/18/19 08:07 Dose: 25 mcg Admin: 06/17/19 07:54 Dose: 25 mcg Admin: 06/16/19 07:51 Dose: 25 mcg Admin: 06/15/19 07:20 Dose: 25 mcg Admin: 06/14/19 08:33 Dose: 25 mcg Admin: 06/13/19 08:25 Dose: 25 mcg Admin: 06/12/19 08:45 Dose: 25 mcg Admin: 06/11/19 08:35 Dose: 25 mcg Admin: 06/10/19 07:57 Dose: 25 mcg Admin: 06/09/19 08:04 Dose: 25 mcg Admin: 06/08/19 07:15 Dose: 25 mcg Admin: 06/07/19 07:26 Dose: 25 mcg Admin: 06/06/19 07:24 Dose: 25 mcg Admin: 06/05/19 07:26 Dose: 25 mcg Admin: 06/04/19 08:12 Dose: 25 mcg Admin: 06/03/19 08:28 Dose: 25 mcg Admin: 06/02/19 07:20 Dose: 25 mcg Admin: 06/01/19 08:33 Dose: 25 mcg Admin: 05/31/19 07:42 Dose: 25 mcg Admin: 05/30/19 08:07 Dose: 25 mcg Admin: 05/29/19 08:07 Dose: 25 mcg Admin: 05/28/19 07:26 Dose: 25 mcg Admin: 05/27/19 08:10 Dose: 25 mcg Citalopram Hydrobromide (Celexa) 20 mg PO QAM MIESHA Last Admin: 04/13/20 07:25 Dose: 20 mg Admin: 04/12/20 07:45 Dose: 20 mg Admin: 04/11/20 08:11 Dose: 20 mg Admin: 04/10/20 07:45 Dose: 20 mg Admin: 04/09/20 07:22 Dose: 20 mg Admin: 04/08/20 07:22 Dose: 20 mg Admin: 04/07/20 08:15 Dose: 20 mg Admin: 04/06/20 08:08 Dose: 20 mg Admin: 04/05/20 07:47 Dose: 20 mg Admin: 04/04/20 08:33 Dose: 20 mg Admin: 04/03/20 07:44 Dose: 20 mg Admin: 04/02/20 07:49 Dose: 20 mg Admin: 04/01/20 07:53 Dose: 20 mg Admin: 03/31/20 08:20 Dose: 20 mg Admin: 03/30/20 08:37 Dose: 20 mg Admin: 03/29/20 07:21 Dose: 20 mg Admin: 03/28/20 07:30 Dose: 20 mg Admin: 03/27/20 08:17 Dose: 20 mg Admin: 03/26/20 07:39 Dose: 20 mg Admin: 03/25/20 07:25 Dose: 20 mg Admin: 03/24/20 08:01 Dose: 20 mg Admin: 03/23/20 08:05 Dose: 20 mg Admin: 03/22/20 07:36 Dose: 20 mg Admin: 03/21/20 08:08 Dose: 20 mg Admin: 03/20/20 07:41 Dose: 20 mg Admin: 03/19/20 08:03 Dose: 20 mg Admin: 03/18/20 08:27 Dose: 20 mg Admin: 03/17/20 08:04 Dose: 20 mg Admin: 03/16/20 08:36 Dose: 20 mg Admin: 03/15/20 08:19 Dose: 20 mg Admin: 03/14/20 08:16 Dose: 20 mg Admin: 03/13/20 08:31 Dose: 20 mg Admin: 03/12/20 08:19 Dose: 20 mg Admin: 03/11/20 08:44 Dose: 20 mg Admin: 03/10/20 08:12 Dose: 20 mg Admin: 03/09/20 08:25 Dose: 20 mg Admin: 03/08/20 09:17 Dose: 20 mg Admin: 03/07/20 08:14 Dose: 20 mg Admin: 03/06/20 07:51 Dose: 20 mg Admin: 03/05/20 08:07 Dose: 20 mg Admin: 03/04/20 07:29 Dose: 20 mg Admin: 03/03/20 08:19 Dose: 20 mg Admin: 03/02/20 08:35 Dose: 20 mg Admin: 03/01/20 08:24 Dose: 20 mg Admin: 02/29/20 08:01 Dose: 20 mg Admin: 02/28/20 07:59 Dose: 20 mg Admin: 02/27/20 08:15 Dose: 20 mg Admin: 02/26/20 08:20 Dose: 20 mg Admin: 02/25/20 07:53 Dose: 20 mg Admin: 02/24/20 08:24 Dose: 20 mg Admin: 02/23/20 08:29 Dose: 20 mg Admin: 02/22/20 08:16 Dose: 20 mg Admin: 02/21/20 07:56 Dose: 20 mg Admin: 02/20/20 08:13 Dose: 20 mg Admin: 02/19/20 08:17 Dose: 20 mg Admin: 02/18/20 08:15 Dose: 20 mg Admin: 02/17/20 08:28 Dose: 20 mg Admin: 02/16/20 08:12 Dose: 20 mg Admin: 02/15/20 07:00 Dose: 20 mg Admin: 02/14/20 08:27 Dose: 20 mg Admin: 02/13/20 07:49 Dose: 20 mg Admin: 02/12/20 07:07 Dose: 20 mg Admin: 02/11/20 07:15 Dose: 20 mg Admin: 02/10/20 08:33 Dose: 20 mg Admin: 02/09/20 08:38 Dose: 20 mg Admin: 02/08/20 07:13 Dose: 20 mg Admin: 02/07/20 08:28 Dose: 20 mg Admin: 02/06/20 08:10 Dose: 20 mg Admin: 02/05/20 08:15 Dose: 20 mg Admin: 02/04/20 09:05 Dose: 20 mg Admin: 02/03/20 07:28 Dose: 20 mg Admin: 02/02/20 07:06 Dose: 20 mg Admin: 02/01/20 07:07 Dose: 20 mg Admin: 01/31/20 07:06 Dose: 20 mg Admin: 01/30/20 08:06 Dose: 20 mg Admin: 01/29/20 08:00 Dose: 20 mg Admin: 01/28/20 07:54 Dose: 20 mg Admin: 01/27/20 07:05 Dose: 20 mg Admin: 01/26/20 07:30 Dose: 20 mg Admin: 01/25/20 07:10 Dose: 20 mg Admin: 01/24/20 07:55 Dose: 20 mg Admin: 01/23/20 07:08 Dose: 20 mg Admin: 01/22/20 07:14 Dose: 20 mg Admin: 01/21/20 07:59 Dose: 20 mg Admin: 01/20/20 07:59 Dose: 20 mg Admin: 01/19/20 07:54 Dose: 20 mg Admin: 01/18/20 08:04 Dose: 20 mg Admin: 01/17/20 08:06 Dose: 20 mg Admin: 01/16/20 08:18 Dose: 20 mg Admin: 01/15/20 08:17 Dose: 20 mg Admin: 01/14/20 08:09 Dose: 20 mg Admin: 01/13/20 08:20 Dose: 20 mg Admin: 01/12/20 08:16 Dose: 20 mg Admin: 01/11/20 07:52 Dose: 20 mg Admin: 01/10/20 08:31 Dose: 20 mg Admin: 01/09/20 08:08 Dose: 20 mg Admin: 01/08/20 08:11 Dose: 20 mg Admin: 01/07/20 08:12 Dose: 20 mg Admin: 01/06/20 08:22 Dose: 20 mg Admin: 01/05/20 08:00 Dose: 20 mg Admin: 01/04/20 07:53 Dose: 20 mg Admin: 01/03/20 08:12 Dose: 20 mg Admin: 01/02/20 07:57 Dose: 20 mg Admin: 01/01/20 07:12 Dose: 20 mg Admin: 12/31/19 08:06 Dose: 20 mg Admin: 12/30/19 08:00 Dose: 20 mg Admin: 12/29/19 08:18 Dose: 20 mg Admin: 12/28/19 08:00 Dose: 20 mg Admin: 12/27/19 07:55 Dose: 20 mg Admin: 12/26/19 07:57 Dose: 20 mg Admin: 12/25/19 07:52 Dose: 20 mg Admin: 12/24/19 07:51 Dose: 20 mg Admin: 12/23/19 08:05 Dose: 20 mg Admin: 12/22/19 07:02 Dose: 20 mg Admin: 12/21/19 07:24 Dose: 20 mg Admin: 12/20/19 07:15 Dose: 20 mg Admin: 12/19/19 07:45 Dose: 20 mg Admin: 12/18/19 08:06 Dose: 20 mg Admin: 12/17/19 07:54 Dose: 20 mg Admin: 12/16/19 07:29 Dose: 20 mg Admin: 12/15/19 07:05 Dose: 20 mg Admin: 12/14/19 07:35 Dose: 20 mg Admin: 12/13/19 08:00 Dose: 20 mg Admin: 12/12/19 07:07 Dose: 20 mg Admin: 12/11/19 07:08 Dose: 20 mg Admin: 12/10/19 07:50 Dose: 20 mg Admin: 12/09/19 07:49 Dose: 20 mg Admin: 12/08/19 08:46 Dose: 20 mg Admin: 12/07/19 07:57 Dose: 20 mg Admin: 12/06/19 08:06 Dose: 20 mg Admin: 12/05/19 08:10 Dose: 20 mg Admin: 12/04/19 08:16 Dose: 20 mg Admin: 12/03/19 08:09 Dose: 20 mg Admin: 12/02/19 08:05 Dose: 20 mg Admin: 12/01/19 07:21 Dose: 20 mg Admin: 11/30/19 08:07 Dose: 20 mg Admin: 11/29/19 07:18 Dose: 20 mg Admin: 11/28/19 08:09 Dose: 20 mg Admin: 11/27/19 08:07 Dose: 20 mg Admin: 11/26/19 08:16 Dose: 20 mg Admin: 11/25/19 07:13 Dose: 20 mg Admin: 11/24/19 08:25 Dose: 20 mg Admin: 11/23/19 07:02 Dose: 20 mg Admin: 11/22/19 07:47 Dose: 20 mg Admin: 11/21/19 07:12 Dose: 20 mg Admin: 11/20/19 07:59 Dose: 20 mg Admin: 11/19/19 07:57 Dose: 20 mg Admin: 11/18/19 07:10 Dose: 20 mg Admin: 11/17/19 08:09 Dose: 20 mg Admin: 11/16/19 08:02 Dose: 20 mg Admin: 11/15/19 07:36 Dose: 20 mg Admin: 11/14/19 07:51 Dose: 20 mg Admin: 11/13/19 07:50 Dose: 20 mg Admin: 11/12/19 08:02 Dose: 20 mg Admin: 11/11/19 07:44 Dose: 20 mg Admin: 11/10/19 07:05 Dose: 20 mg Admin: 11/09/19 07:04 Dose: 20 mg Admin: 11/08/19 07:33 Dose: 20 mg Admin: 11/07/19 07:41 Dose: 20 mg Admin: 11/06/19 07:39 Dose: 20 mg Admin: 11/05/19 07:45 Dose: 20 mg Admin: 11/04/19 07:57 Dose: 20 mg Admin: 11/03/19 07:52 Dose: 20 mg Admin: 11/02/19 08:04 Dose: 20 mg Admin: 11/01/19 08:22 Dose: 20 mg Admin: 10/31/19 07:21 Dose: 20 mg Admin: 10/30/19 07:16 Dose: 20 mg Admin: 10/29/19 07:20 Dose: 20 mg Admin: 10/28/19 08:09 Dose: 20 mg Admin: 10/27/19 08:05 Dose: 20 mg Admin: 10/26/19 07:58 Dose: 20 mg Admin: 10/25/19 07:34 Dose: 20 mg Admin: 10/24/19 07:52 Dose: 20 mg Admin: 10/23/19 08:18 Dose: 20 mg Admin: 10/22/19 07:56 Dose: 20 mg Admin: 10/21/19 07:55 Dose: 20 mg Admin: 10/20/19 07:58 Dose: 20 mg Admin: 10/19/19 07:25 Dose: 20 mg Admin: 10/18/19 08:02 Dose: 20 mg Admin: 10/17/19 08:00 Dose: 20 mg Admin: 10/16/19 07:57 Dose: 20 mg Admin: 10/15/19 08:11 Dose: 20 mg Admin: 10/14/19 08:19 Dose: 20 mg Admin: 10/13/19 07:28 Dose: 20 mg Admin: 10/12/19 07:26 Dose: 20 mg Admin: 10/11/19 07:23 Dose: 20 mg Admin: 10/10/19 07:54 Dose: 20 mg Admin: 10/09/19 07:14 Dose: 20 mg Admin: 10/08/19 07:44 Dose: 20 mg Admin: 10/07/19 08:16 Dose: 20 mg Admin: 10/06/19 07:57 Dose: 20 mg Admin: 10/05/19 07:49 Dose: 20 mg Admin: 10/04/19 08:19 Dose: 20 mg Admin: 10/03/19 07:50 Dose: 20 mg Admin: 10/02/19 08:12 Dose: 20 mg Admin: 10/01/19 08:12 Dose: 20 mg Admin: 09/30/19 07:40 Dose: 20 mg Admin: 09/29/19 07:32 Dose: 20 mg Admin: 09/28/19 08:13 Dose: 20 mg Admin: 09/27/19 07:35 Dose: 20 mg Admin: 09/26/19 07:38 Dose: 20 mg Admin: 09/25/19 07:38 Dose: 20 mg Admin: 09/24/19 07:36 Dose: 20 mg Admin: 09/23/19 09:00 Dose: 20 mg Admin: 09/22/19 08:07 Dose: 20 mg Admin: 09/21/19 07:44 Dose: 20 mg Admin: 09/20/19 07:54 Dose: 20 mg Admin: 09/19/19 07:17 Dose: 20 mg Admin: 09/18/19 07:26 Dose: 20 mg Admin: 09/17/19 07:29 Dose: 20 mg Admin: 09/16/19 08:16 Dose: 20 mg Admin: 09/15/19 07:32 Dose: 20 mg Admin: 09/14/19 08:14 Dose: 20 mg Admin: 09/13/19 07:28 Dose: 20 mg Admin: 09/12/19 07:49 Dose: 20 mg Admin: 09/11/19 07:45 Dose: 20 mg Admin: 09/10/19 08:09 Dose: 20 mg Admin: 09/09/19 08:16 Dose: 20 mg Admin: 09/08/19 07:22 Dose: 20 mg Admin: 09/07/19 07:43 Dose: 20 mg Admin: 09/06/19 08:07 Dose: 20 mg Admin: 09/05/19 07:29 Dose: 20 mg Admin: 09/04/19 07:22 Dose: 20 mg Admin: 09/03/19 07:41 Dose: 20 mg Admin: 09/02/19 08:33 Dose: 20 mg Admin: 09/01/19 07:31 Dose: 20 mg Admin: 08/31/19 07:47 Dose: 20 mg Admin: 08/30/19 07:27 Dose: 20 mg Admin: 08/29/19 07:29 Dose: 20 mg Admin: 08/28/19 07:45 Dose: 20 mg Admin: 08/27/19 07:59 Dose: 20 mg Admin: 08/26/19 08:02 Dose: 20 mg Admin: 08/25/19 07:58 Dose: 20 mg Admin: 08/24/19 08:15 Dose: 20 mg Admin: 08/23/19 07:30 Dose: 20 mg Admin: 08/22/19 08:09 Dose: 20 mg Admin: 08/21/19 07:54 Dose: 20 mg Admin: 08/20/19 07:56 Dose: 20 mg Admin: 08/19/19 07:13 Dose: 20 mg Admin: 08/18/19 07:28 Dose: 20 mg Admin: 08/17/19 07:49 Dose: 20 mg Admin: 08/16/19 07:34 Dose: 20 mg Admin: 08/15/19 07:36 Dose: 20 mg Admin: 08/14/19 07:52 Dose: 20 mg Admin: 08/13/19 07:58 Dose: 20 mg Admin: 08/12/19 07:50 Dose: 20 mg Admin: 08/11/19 07:25 Dose: 20 mg Admin: 08/10/19 07:45 Dose: 20 mg Admin: 08/09/19 07:35 Dose: 20 mg Admin: 08/08/19 07:14 Dose: 20 mg Admin: 08/07/19 07:31 Dose: 20 mg Admin: 08/06/19 07:27 Dose: 20 mg Admin: 08/05/19 07:52 Dose: 20 mg Admin: 08/04/19 07:49 Dose: 20 mg Admin: 08/03/19 08:01 Dose: 20 mg Admin: 08/02/19 14:36 Dose: Admin: 08/01/19 07:53 Dose: 20 mg Admin: 07/31/19 07:37 Dose: 20 mg Admin: 07/30/19 08:02 Dose: 20 mg Admin: 07/29/19 07:18 Dose: 20 mg Admin: 07/28/19 07:35 Dose: 20 mg Admin: 07/27/19 07:38 Dose: 20 mg Admin: 07/26/19 08:00 Dose: 20 mg Admin: 07/25/19 07:52 Dose: 20 mg Admin: 07/24/19 07:31 Dose: 20 mg Admin: 07/23/19 08:18 Dose: 20 mg Admin: 07/22/19 08:08 Dose: 20 mg Admin: 07/21/19 08:15 Dose: 20 mg Admin: 07/20/19 07:57 Dose: 20 mg Admin: 07/19/19 07:31 Dose: 20 mg Admin: 07/18/19 07:32 Dose: 20 mg Admin: 07/17/19 07:34 Dose: 20 mg Admin: 07/16/19 07:33 Dose: 20 mg Admin: 07/15/19 08:03 Dose: 20 mg Admin: 07/14/19 08:01 Dose: 20 mg Admin: 07/13/19 07:59 Dose: 20 mg Admin: 07/12/19 07:29 Dose: 20 mg Admin: 07/11/19 07:52 Dose: 20 mg Admin: 07/10/19 08:02 Dose: 20 mg Admin: 07/09/19 07:24 Dose: 20 mg Admin: 07/08/19 07:23 Dose: 20 mg Admin: 07/07/19 08:02 Dose: 20 mg Admin: 07/06/19 07:55 Dose: 20 mg Admin: 07/05/19 07:45 Dose: 20 mg Admin: 07/04/19 07:27 Dose: 20 mg Admin: 07/03/19 07:47 Dose: 20 mg Admin: 07/02/19 08:25 Dose: 20 mg Admin: 07/01/19 08:23 Dose: 20 mg Admin: 06/30/19 08:09 Dose: 20 mg Admin: 06/29/19 07:49 Dose: 20 mg Admin: 06/28/19 07:52 Dose: 20 mg Admin: 06/27/19 07:52 Dose: 20 mg Admin: 06/26/19 08:01 Dose: 20 mg Admin: 06/25/19 08:10 Dose: 20 mg Admin: 06/24/19 07:44 Dose: 20 mg Admin: 06/23/19 08:09 Dose: 20 mg Admin: 06/22/19 07:32 Dose: 20 mg Admin: 06/21/19 07:21 Dose: 20 mg Admin: 06/20/19 07:17 Dose: 20 mg Admin: 06/19/19 07:23 Dose: 20 mg Admin: 06/18/19 08:05 Dose: 20 mg Admin: 06/17/19 07:50 Dose: 20 mg Admin: 06/16/19 07:47 Dose: 20 mg Admin: 06/15/19 07:18 Dose: 20 mg Admin: 06/14/19 08:29 Dose: 20 mg Admin: 06/13/19 08:22 Dose: 20 mg Admin: 06/12/19 08:45 Dose: 20 mg Admin: 06/11/19 08:33 Dose: 20 mg Admin: 06/10/19 07:56 Dose: 20 mg Admin: 06/09/19 08:01 Dose: 20 mg Admin: 06/08/19 07:13 Dose: 20 mg Admin: 06/07/19 07:26 Dose: 20 mg Admin: 06/06/19 07:23 Dose: 20 mg Admin: 06/05/19 07:25 Dose: 20 mg Admin: 06/04/19 08:11 Dose: 20 mg Admin: 06/03/19 08:27 Dose: 20 mg Admin: 06/02/19 07:19 Dose: 20 mg Admin: 06/01/19 08:31 Dose: 20 mg Admin: 05/31/19 07:40 Dose: 20 mg Admin: 05/30/19 08:05 Dose: 20 mg Admin: 05/29/19 08:06 Dose: 20 mg Admin: 05/28/19 07:23 Dose: 20 mg Admin: 05/27/19 08:08 Dose: 20 mg Admin: 05/26/19 08:23 Dose: 20 mg Admin: 05/25/19 08:27 Dose: 20 mg Cyanocobalamin (Vitamin B12) 1,000 mcg PO QAM MIESHA Last Admin: 04/13/20 07:27 Dose: 1,000 mcg Admin: 04/12/20 07:47 Dose: 1,000 mcg Admin: 04/11/20 08:12 Dose: 1,000 mcg Admin: 04/10/20 07:50 Dose: 1,000 mcg Admin: 04/09/20 07:25 Dose: 1,000 mcg Admin: 04/08/20 07:26 Dose: 1,000 mcg Admin: 04/07/20 10:28 Dose: 1,000 mcg Admin: 04/06/20 08:10 Dose: 1,000 mcg Admin: 04/05/20 07:48 Dose: 1,000 mcg Admin: 04/04/20 08:35 Dose: 1,000 mcg Admin: 04/03/20 07:47 Dose: 1,000 mcg Admin: 04/02/20 07:51 Dose: 1,000 mcg Admin: 04/01/20 07:55 Dose: 1,000 mcg Admin: 03/31/20 08:22 Dose: 1,000 mcg Admin: 03/30/20 08:41 Dose: 1,000 mcg Admin: 03/29/20 07:22 Dose: 1,000 mcg Admin: 03/28/20 07:32 Dose: 1,000 mcg Admin: 03/27/20 08:20 Dose: 1,000 mcg Admin: 03/26/20 07:41 Dose: 1,000 mcg Admin: 03/25/20 07:27 Dose: 1,000 mcg Admin: 03/24/20 08:02 Dose: 1,000 mcg Admin: 03/23/20 08:06 Dose: 1,000 mcg Admin: 03/22/20 07:38 Dose: 1,000 mcg Admin: 03/21/20 08:09 Dose: 1,000 mcg Admin: 03/20/20 07:42 Dose: 1,000 mcg Admin: 03/19/20 08:05 Dose: 1,000 mcg Admin: 03/18/20 08:30 Dose: 1,000 mcg Admin: 03/17/20 08:05 Dose: 1,000 mcg Admin: 03/16/20 08:37 Dose: 1,000 mcg Admin: 03/15/20 08:22 Dose: 1,000 mcg Admin: 03/14/20 08:21 Dose: 1,000 mcg Admin: 03/13/20 08:34 Dose: 1,000 mcg Admin: 03/12/20 08:21 Dose: 1,000 mcg Admin: 03/11/20 08:45 Dose: 1,000 mcg Admin: 03/10/20 08:16 Dose: 1,000 mcg Admin: 03/09/20 08:28 Dose: 1,000 mcg Admin: 03/08/20 09:20 Dose: 1,000 mcg Admin: 03/07/20 08:17 Dose: 1,000 mcg Admin: 03/06/20 07:55 Dose: 1,000 mcg Admin: 03/05/20 08:10 Dose: 1,000 mcg Admin: 03/04/20 07:31 Dose: 1,000 mcg Admin: 03/03/20 08:24 Dose: 1,000 mcg Admin: 03/02/20 08:37 Dose: 1,000 mcg Admin: 03/01/20 08:26 Dose: 1,000 mcg Admin: 02/29/20 08:05 Dose: 1,000 mcg Admin: 02/28/20 08:01 Dose: 1,000 mcg Admin: 02/27/20 08:17 Dose: 1,000 mcg Admin: 02/26/20 08:22 Dose: 1,000 mcg Admin: 02/25/20 07:58 Dose: 1,000 mcg Admin: 02/24/20 08:26 Dose: 1,000 mcg Admin: 02/23/20 08:31 Dose: 1,000 mcg Admin: 02/22/20 08:22 Dose: 1,000 mcg Admin: 02/21/20 08:00 Dose: 1,000 mcg Admin: 02/20/20 08:14 Dose: 1,000 mcg Admin: 02/19/20 08:19 Dose: 1,000 mcg Admin: 02/18/20 08:20 Dose: 1,000 mcg Admin: 02/17/20 08:31 Dose: 1,000 mcg Admin: 02/16/20 08:25 Dose: 1,000 mcg Admin: 02/15/20 07:02 Dose: 1,000 mcg Admin: 02/14/20 08:29 Dose: 1,000 mcg Admin: 02/13/20 07:50 Dose: 1,000 mcg Admin: 02/12/20 07:08 Dose: 1,000 mcg Admin: 02/11/20 07:17 Dose: 1,000 mcg Admin: 02/10/20 08:35 Dose: 1,000 mcg Admin: 02/09/20 08:42 Dose: 1,000 mcg Admin: 02/08/20 07:16 Dose: 1,000 mcg Admin: 02/07/20 08:29 Dose: 1,000 mcg Admin: 02/06/20 08:13 Dose: 1,000 mcg Admin: 02/05/20 08:19 Dose: 1,000 mcg Admin: 02/04/20 09:07 Dose: 1,000 mcg Admin: 02/03/20 07:29 Dose: 1,000 mcg Admin: 02/02/20 07:07 Dose: 1,000 mcg Admin: 02/01/20 07:09 Dose: 1,000 mcg Admin: 01/31/20 07:07 Dose: 1,000 mcg Admin: 01/30/20 08:08 Dose: 1,000 mcg Admin: 01/29/20 08:02 Dose: 1,000 mcg Admin: 01/28/20 07:56 Dose: 1,000 mcg Admin: 01/27/20 07:06 Dose: 1,000 mcg Admin: 01/26/20 07:33 Dose: 1,000 mcg Admin: 01/25/20 07:12 Dose: 1,000 mcg Admin: 01/24/20 07:57 Dose: 1,000 mcg Admin: 01/23/20 07:10 Dose: 1,000 mcg Admin: 01/22/20 07:16 Dose: 1,000 mcg Admin: 01/21/20 08:01 Dose: 1,000 mcg Admin: 01/20/20 08:02 Dose: 1,000 mcg Admin: 01/19/20 07:56 Dose: 1,000 mcg Admin: 01/18/20 08:06 Dose: 1,000 mcg Admin: 01/17/20 08:09 Dose: 1,000 mcg Admin: 01/16/20 08:22 Dose: 1,000 mcg Admin: 01/15/20 08:19 Dose: 1,000 mcg Admin: 01/14/20 08:11 Dose: 1,000 mcg Admin: 01/13/20 08:21 Dose: 1,000 mcg Admin: 01/12/20 08:20 Dose: 1,000 mcg Admin: 01/11/20 07:54 Dose: 1,000 mcg Admin: 01/10/20 08:33 Dose: 1,000 mcg Admin: 01/09/20 08:10 Dose: 1,000 mcg Admin: 01/08/20 08:13 Dose: 1,000 mcg Admin: 01/07/20 08:14 Dose: 1,000 mcg Admin: 01/06/20 08:26 Dose: 1,000 mcg Admin: 01/05/20 08:02 Dose: 1,000 mcg Admin: 01/04/20 07:56 Dose: 1,000 mcg Admin: 01/03/20 08:14 Dose: 1,000 mcg Admin: 01/02/20 08:01 Dose: 1,000 mcg Admin: 01/01/20 07:13 Dose: 1,000 mcg Admin: 12/31/19 08:07 Dose: 1,000 mcg Admin: 12/30/19 08:04 Dose: 1,000 mcg Admin: 12/29/19 08:21 Dose: 1,000 mcg Admin: 12/28/19 08:02 Dose: 1,000 mcg Admin: 12/27/19 07:57 Dose: 1,000 mcg Admin: 12/26/19 07:59 Dose: 1,000 mcg Admin: 12/25/19 07:53 Dose: 1,000 mcg Admin: 12/24/19 07:52 Dose: 1,000 mcg Admin: 12/23/19 08:05 Dose: 1,000 mcg Admin: 12/22/19 07:04 Dose: 1,000 mcg Admin: 12/21/19 07:25 Dose: 1,000 mcg Admin: 12/20/19 07:16 Dose: 1,000 mcg Admin: 12/19/19 07:47 Dose: 1,000 mcg Admin: 12/18/19 08:08 Dose: 1,000 mcg Admin: 12/17/19 07:55 Dose: 1,000 mcg Admin: 12/16/19 07:31 Dose: 1,000 mcg Admin: 12/15/19 07:06 Dose: 1,000 mcg Admin: 12/14/19 07:38 Dose: 1,000 mcg Admin: 12/13/19 08:02 Dose: 1,000 mcg Admin: 12/12/19 07:09 Dose: 1,000 mcg Admin: 12/11/19 07:11 Dose: 1,000 mcg Admin: 12/10/19 07:52 Dose: 1,000 mcg Admin: 12/09/19 07:51 Dose: 1,000 mcg Admin: 12/08/19 08:49 Dose: 1,000 mcg Admin: 12/07/19 07:59 Dose: 1,000 mcg Admin: 12/06/19 08:10 Dose: 1,000 mcg Admin: 12/05/19 08:12 Dose: 1,000 mcg Admin: 12/04/19 08:19 Dose: 1,000 mcg Admin: 12/03/19 08:12 Dose: 1,000 mcg Admin: 12/02/19 08:10 Dose: 1,000 mcg Admin: 12/01/19 07:22 Dose: 1,000 mcg Admin: 11/30/19 08:09 Dose: 1,000 mcg Admin: 11/29/19 07:20 Dose: 1,000 mcg Admin: 11/28/19 08:12 Dose: 1,000 mcg Admin: 11/27/19 08:11 Dose: 1,000 mcg Admin: 11/26/19 08:19 Dose: 1,000 mcg Admin: 11/25/19 07:14 Dose: 1,000 mcg Admin: 11/24/19 08:26 Dose: 1,000 mcg Admin: 11/23/19 07:04 Dose: 1,000 mcg Admin: 11/22/19 07:48 Dose: 1,000 mcg Admin: 11/21/19 07:18 Dose: 1,000 mcg Admin: 11/20/19 08:01 Dose: 1,000 mcg Admin: 11/19/19 11:18 Dose: 1,000 mcg Admin: 11/18/19 07:11 Dose: 1,000 mcg Admin: 11/17/19 08:10 Dose: 1,000 mcg Admin: 11/16/19 08:04 Dose: 1,000 mcg Admin: 11/15/19 07:38 Dose: 1,000 mcg Admin: 11/14/19 07:52 Dose: 1,000 mcg Admin: 11/13/19 07:52 Dose: 1,000 mcg Admin: 11/12/19 08:05 Dose: 1,000 mcg Admin: 11/11/19 07:47 Dose: 1,000 mcg Admin: 11/10/19 07:07 Dose: 1,000 mcg Admin: 11/09/19 07:07 Dose: 1,000 mcg Admin: 11/08/19 07:34 Dose: 1,000 mcg Admin: 11/07/19 07:42 Dose: 1,000 mcg Admin: 11/06/19 07:41 Dose: 1,000 mcg Admin: 11/05/19 07:47 Dose: 1,000 mcg Admin: 11/04/19 07:58 Dose: 1,000 mcg Admin: 11/03/19 07:54 Dose: 1,000 mcg Admin: 11/02/19 08:06 Dose: 1,000 mcg Admin: 11/01/19 08:26 Dose: 1,000 mcg Admin: 10/31/19 07:23 Dose: 1,000 mcg Admin: 10/30/19 07:18 Dose: 1,000 mcg Admin: 10/29/19 07:23 Dose: 1,000 mcg Admin: 10/28/19 08:11 Dose: 1,000 mcg Admin: 10/27/19 08:08 Dose: 1,000 mcg Admin: 10/26/19 08:00 Dose: 1,000 mcg Admin: 10/25/19 07:35 Dose: 1,000 mcg Admin: 10/24/19 07:55 Dose: 1,000 mcg Admin: 10/23/19 08:21 Dose: 1,000 mcg Admin: 10/22/19 07:58 Dose: 1,000 mcg Admin: 10/21/19 07:57 Dose: 1,000 mcg Admin: 10/20/19 08:01 Dose: 1,000 mcg Admin: 10/19/19 07:26 Dose: 1,000 mcg Admin: 10/18/19 08:06 Dose: 1,000 mcg Admin: 10/17/19 08:02 Dose: 1,000 mcg Admin: 10/16/19 08:02 Dose: 1,000 mcg Admin: 10/15/19 08:13 Dose: 1,000 mcg Admin: 10/14/19 08:26 Dose: 1,000 mcg Admin: 10/13/19 07:30 Dose: 1,000 mcg Admin: 10/12/19 07:29 Dose: 1,000 mcg Admin: 10/11/19 07:24 Dose: 1,000 mcg Admin: 10/10/19 07:55 Dose: 1,000 mcg Admin: 10/09/19 07:16 Dose: 1,000 mcg Admin: 10/08/19 07:48 Dose: 1,000 mcg Admin: 10/07/19 08:17 Dose: 1,000 mcg Admin: 10/06/19 07:58 Dose: 1,000 mcg Admin: 10/05/19 07:51 Dose: 1,000 mcg Admin: 10/04/19 08:21 Dose: 1,000 mcg Admin: 10/03/19 07:51 Dose: 1,000 mcg Admin: 10/02/19 08:13 Dose: 1,000 mcg Admin: 10/01/19 08:15 Dose: 1,000 mcg Admin: 09/30/19 07:41 Dose: 1,000 mcg Admin: 09/29/19 07:33 Dose: 1,000 mcg Admin: 09/28/19 08:15 Dose: 1,000 mcg Admin: 09/27/19 07:36 Dose: 1,000 mcg Admin: 09/26/19 07:39 Dose: 1,000 mcg Admin: 09/25/19 07:39 Dose: 1,000 mcg Admin: 09/24/19 07:37 Dose: 1,000 mcg Admin: 09/23/19 09:03 Dose: 1,000 mcg Admin: 09/22/19 08:09 Dose: 1,000 mcg Admin: 09/21/19 07:47 Dose: 1,000 mcg Admin: 09/20/19 08:00 Dose: 1,000 mcg Admin: 09/19/19 07:18 Dose: 1,000 mcg Admin: 09/18/19 07:27 Dose: 1,000 mcg Admin: 09/17/19 07:30 Dose: 1,000 mcg Admin: 09/16/19 08:18 Dose: 1,000 mcg Admin: 09/15/19 07:35 Dose: 1,000 mcg Admin: 09/14/19 08:18 Dose: 1,000 mcg Admin: 09/13/19 07:30 Dose: 1,000 mcg Admin: 09/12/19 07:50 Dose: 1,000 mcg Admin: 09/11/19 07:47 Dose: 1,000 mcg Admin: 09/10/19 08:11 Dose: 1,000 mcg Admin: 09/09/19 08:18 Dose: 1,000 mcg Admin: 09/08/19 07:23 Dose: 1,000 mcg Admin: 09/07/19 07:45 Dose: 1,000 mcg Admin: 09/06/19 08:08 Dose: 1,000 mcg Admin: 09/05/19 07:30 Dose: 1,000 mcg Admin: 09/04/19 07:23 Dose: 1,000 mcg Admin: 09/03/19 07:40 Dose: 1,000 mcg Admin: 09/02/19 08:35 Dose: 1,000 mcg Admin: 09/01/19 07:33 Dose: 1,000 mcg Admin: 08/31/19 07:49 Dose: 1,000 mcg Admin: 08/30/19 07:28 Dose: 1,000 mcg Admin: 08/29/19 07:30 Dose: 1,000 mcg Admin: 08/28/19 07:48 Dose: 1,000 mcg Admin: 08/27/19 08:00 Dose: 1,000 mcg Admin: 08/26/19 08:03 Dose: 1,000 mcg Admin: 08/25/19 07:59 Dose: 1,000 mcg Admin: 08/24/19 08:16 Dose: 1,000 mcg Admin: 08/23/19 07:31 Dose: 1,000 mcg Admin: 08/22/19 08:09 Dose: 1,000 mcg Admin: 08/21/19 07:55 Dose: 1,000 mcg Admin: 08/20/19 07:56 Dose: 1,000 mcg Admin: 08/19/19 07:14 Dose: 1,000 mcg Admin: 08/18/19 07:29 Dose: 1,000 mcg Admin: 08/17/19 07:51 Dose: 1,000 mcg Admin: 08/16/19 07:35 Dose: 1,000 mcg Admin: 08/15/19 07:37 Dose: 1,000 mcg Admin: 08/14/19 07:53 Dose: 1,000 mcg Admin: 08/13/19 08:00 Dose: 1,000 mcg Admin: 08/12/19 07:52 Dose: 1,000 mcg Admin: 08/11/19 07:27 Dose: 1,000 mcg Admin: 08/10/19 07:47 Dose: 1,000 mcg Admin: 08/09/19 07:39 Dose: 1,000 mcg Admin: 08/08/19 07:16 Dose: 1,000 mcg Admin: 08/07/19 07:33 Dose: 1,000 mcg Admin: 08/06/19 07:28 Dose: 1,000 mcg Admin: 08/05/19 07:53 Dose: 1,000 mcg Admin: 08/04/19 07:54 Dose: 1,000 mcg Admin: 08/03/19 08:03 Dose: 1,000 mcg Admin: 08/02/19 14:37 Dose: Admin: 08/01/19 07:55 Dose: 1,000 mcg Admin: 07/31/19 07:38 Dose: 1,000 mcg Admin: 07/30/19 08:06 Dose: 1,000 mcg Admin: 07/29/19 07:21 Dose: 1,000 mcg Admin: 07/28/19 07:37 Dose: 1,000 mcg Admin: 07/27/19 07:41 Dose: 1,000 mcg Admin: 07/26/19 08:03 Dose: 1,000 mcg Admin: 07/25/19 07:54 Dose: 1,000 mcg Admin: 07/24/19 07:33 Dose: 1,000 mcg Admin: 07/23/19 08:22 Dose: 1,000 mcg Admin: 07/22/19 08:11 Dose: 1,000 mcg Admin: 07/21/19 08:17 Dose: 1,000 mcg Admin: 07/20/19 07:59 Dose: 1,000 mcg Admin: 07/19/19 07:32 Dose: 1,000 mcg Admin: 07/18/19 07:34 Dose: 1,000 mcg Admin: 07/17/19 07:35 Dose: 1,000 mcg Admin: 07/16/19 07:35 Dose: 1,000 mcg Admin: 07/15/19 08:04 Dose: 1,000 mcg Admin: 07/14/19 08:00 Dose: 1,000 mcg Admin: 07/13/19 08:01 Dose: 1,000 mcg Admin: 07/12/19 07:30 Dose: 1,000 mcg Admin: 07/11/19 07:54 Dose: 1,000 mcg Admin: 07/10/19 08:03 Dose: 1,000 mcg Admin: 07/09/19 07:26 Dose: 1,000 mcg Admin: 07/08/19 07:27 Dose: 1,000 mcg Admin: 07/07/19 08:03 Dose: 1,000 mcg Admin: 07/06/19 07:56 Dose: 1,000 mcg Admin: 07/05/19 07:48 Dose: 1,000 mcg Admin: 07/04/19 07:28 Dose: 1,000 mcg Admin: 07/03/19 07:49 Dose: 1,000 mcg Admin: 07/02/19 08:28 Dose: 1,000 mcg Admin: 07/01/19 08:28 Dose: 1,000 mcg Admin: 06/30/19 08:10 Dose: 1,000 mcg Admin: 06/29/19 07:50 Dose: 1,000 mcg Admin: 06/28/19 07:52 Dose: 1,000 mcg Admin: 06/27/19 07:54 Dose: 1,000 mcg Admin: 06/26/19 08:03 Dose: 1,000 mcg Admin: 06/25/19 08:11 Dose: 1,000 mcg Admin: 06/24/19 07:46 Dose: 1,000 mcg Admin: 06/23/19 08:12 Dose: 1,000 mcg Admin: 06/22/19 07:35 Dose: 1,000 mcg Admin: 06/21/19 07:22 Dose: 1,000 mcg Admin: 06/20/19 07:21 Dose: 1,000 mcg Admin: 06/19/19 07:25 Dose: 1,000 mcg Admin: 06/18/19 08:06 Dose: 1,000 mcg Admin: 06/17/19 07:54 Dose: 1,000 mcg Admin: 06/16/19 07:51 Dose: 1,000 mcg Admin: 06/15/19 07:19 Dose: 1,000 mcg Admin: 06/14/19 08:31 Dose: 1,000 mcg Admin: 06/13/19 08:25 Dose: 1,000 mcg Admin: 06/12/19 08:59 Dose: 1,000 mcg Admin: 06/11/19 08:34 Dose: 1,000 mcg Admin: 06/10/19 07:57 Dose: 1,000 mcg Admin: 06/09/19 08:04 Dose: 1,000 mcg Admin: 06/08/19 07:14 Dose: 1,000 mcg Admin: 06/07/19 07:26 Dose: 1,000 mcg Admin: 06/06/19 07:24 Dose: 1,000 mcg Admin: 06/05/19 07:26 Dose: 1,000 mcg Admin: 06/04/19 08:13 Dose: 1,000 mcg Admin: 06/03/19 08:28 Dose: 1,000 mcg Admin: 06/02/19 07:20 Dose: 1,000 mcg Admin: 06/01/19 08:33 Dose: 1,000 mcg Admin: 05/31/19 07:42 Dose: 1,000 mcg Admin: 05/30/19 08:07 Dose: 1,000 mcg Admin: 05/29/19 08:07 Dose: 1,000 mcg Admin: 05/28/19 07:26 Dose: 1,000 mcg Admin: 05/27/19 08:10 Dose: 1,000 mcg Admin: 05/26/19 08:26 Dose: 1,000 mcg Admin: 05/25/19 08:29 Dose: 1,000 mcg Fludrocortisone Acetate (Florinef) 0.1 mg PO BEDTIME MIESHA Last Admin: 04/12/20 19:20 Dose: 0.1 mg Admin: 04/11/20 19:36 Dose: 0.1 mg Admin: 04/10/20 19:38 Dose: 0.1 mg Admin: 04/09/20 20:27 Dose: 0.1 mg Admin: 04/08/20 19:35 Dose: 0.1 mg Admin: 04/07/20 19:26 Dose: 0.1 mg Admin: 04/06/20 19:45 Dose: 0.1 mg Admin: 04/05/20 19:10 Dose: 0.1 mg Admin: 04/04/20 19:16 Dose: 0.1 mg Admin: 04/03/20 19:30 Dose: 0.1 mg Admin: 04/02/20 18:59 Dose: 0.1 mg Admin: 04/01/20 19:13 Dose: 0.1 mg Admin: 03/31/20 19:15 Dose: 0.1 mg Admin: 03/30/20 19:22 Dose: 0.1 mg Admin: 03/29/20 19:20 Dose: 0.1 mg Admin: 03/28/20 19:15 Dose: 0.1 mg Admin: 03/27/20 19:34 Dose: 0.1 mg Admin: 03/26/20 19:16 Dose: 0.1 mg Admin: 03/25/20 19:32 Dose: 0.1 mg Admin: 03/24/20 19:14 Dose: 0.1 mg Admin: 03/23/20 19:40 Dose: 0.1 mg Admin: 03/22/20 19:25 Dose: 0.1 mg Admin: 03/21/20 19:22 Dose: 0.1 mg Admin: 03/20/20 19:40 Dose: 0.1 mg Admin: 03/19/20 19:42 Dose: 0.1 mg Admin: 03/18/20 19:23 Dose: 0.1 mg Admin: 03/17/20 19:25 Dose: 0.1 mg Admin: 03/16/20 19:29 Dose: 0.1 mg Admin: 03/15/20 19:23 Dose: 0.1 mg Admin: 03/14/20 19:25 Dose: 0.1 mg Admin: 03/13/20 19:21 Dose: 0.1 mg Admin: 03/12/20 19:51 Dose: 0.1 mg Admin: 03/11/20 19:32 Dose: 0.1 mg Admin: 03/10/20 19:35 Dose: 0.1 mg Admin: 03/09/20 19:24 Dose: 0.1 mg Admin: 03/08/20 19:11 Dose: 0.1 mg Admin: 03/07/20 19:48 Dose: 0.1 mg Admin: 03/06/20 19:27 Dose: 0.1 mg Admin: 03/05/20 19:16 Dose: 0.1 mg Admin: 03/04/20 19:19 Dose: 0.1 mg Admin: 03/03/20 19:16 Dose: 0.1 mg Admin: 03/02/20 19:27 Dose: 0.1 mg Admin: 03/01/20 19:26 Dose: 0.1 mg Admin: 02/29/20 19:20 Dose: 0.1 mg Admin: 02/28/20 19:55 Dose: 0.1 mg Admin: 02/27/20 19:27 Dose: 0.1 mg Admin: 02/26/20 19:50 Dose: 0.1 mg Admin: 02/25/20 19:33 Dose: 0.1 mg Admin: 02/24/20 19:25 Dose: 0.1 mg Admin: 02/23/20 19:41 Dose: 0.1 mg Admin: 02/22/20 19:15 Dose: 0.1 mg Admin: 02/21/20 19:17 Dose: 0.1 mg Admin: 02/20/20 19:34 Dose: 0.1 mg Admin: 02/19/20 19:30 Dose: 0.1 mg Admin: 02/18/20 19:35 Dose: 0.1 mg Admin: 02/17/20 19:40 Dose: 0.1 mg Admin: 02/16/20 19:36 Dose: 0.1 mg Admin: 02/15/20 19:09 Dose: 0.1 mg Admin: 02/14/20 19:16 Dose: 0.1 mg Admin: 02/13/20 19:09 Dose: 0.1 mg Admin: 02/12/20 19:20 Dose: 0.1 mg Admin: 02/11/20 19:17 Dose: 0.1 mg Admin: 02/10/20 19:27 Dose: 0.1 mg Admin: 02/09/20 19:47 Dose: 0.1 mg Admin: 02/08/20 19:38 Dose: 0.1 mg Admin: 02/07/20 19:37 Dose: 0.1 mg Admin: 02/06/20 19:34 Dose: 0.1 mg Admin: 02/05/20 19:11 Dose: 0.1 mg Admin: 02/04/20 19:44 Dose: 0.1 mg Admin: 02/03/20 19:34 Dose: 0.1 mg Admin: 02/02/20 19:23 Dose: 0.1 mg Admin: 02/01/20 19:38 Dose: 0.1 mg Admin: 01/31/20 19:33 Dose: 0.1 mg Admin: 01/30/20 19:36 Dose: 0.1 mg Admin: 01/29/20 19:37 Dose: 0.1 mg Admin: 01/28/20 19:53 Dose: 0.1 mg Admin: 01/27/20 19:10 Dose: 0.1 mg Admin: 01/26/20 19:32 Dose: 0.1 mg Admin: 01/25/20 19:33 Dose: 0.1 mg Admin: 01/24/20 20:02 Dose: 0.1 mg Admin: 01/23/20 19:20 Dose: 0.1 mg Admin: 01/22/20 19:14 Dose: 0.1 mg Admin: 01/21/20 19:27 Dose: 0.1 mg Admin: 01/20/20 19:26 Dose: 0.1 mg Admin: 01/19/20 19:17 Dose: 0.1 mg Admin: 01/18/20 19:30 Dose: 0.1 mg Admin: 01/17/20 19:52 Dose: 0.1 mg Admin: 01/16/20 20:08 Dose: 0.1 mg Admin: 01/15/20 19:52 Dose: 0.1 mg Admin: 01/14/20 19:34 Dose: 0.1 mg Admin: 01/13/20 19:15 Dose: 0.1 mg Admin: 01/12/20 19:27 Dose: 0.1 mg Admin: 01/11/20 19:39 Dose: 0.1 mg Admin: 01/10/20 19:34 Dose: 0.1 mg Admin: 01/09/20 19:18 Dose: 0.1 mg Admin: 01/08/20 19:21 Dose: 0.1 mg Admin: 01/07/20 19:16 Dose: 0.1 mg Admin: 01/06/20 19:45 Dose: 0.1 mg Admin: 01/05/20 19:57 Dose: 0.1 mg Admin: 01/04/20 19:46 Dose: 0.1 mg Admin: 01/03/20 20:14 Dose: 0.1 mg Admin: 01/02/20 19:21 Dose: 0.1 mg Admin: 01/01/20 19:50 Dose: 0.1 mg Admin: 12/31/19 19:50 Dose: 0.1 mg Admin: 12/30/19 19:47 Dose: 0.1 mg Admin: 12/29/19 19:46 Dose: 0.1 mg Admin: 12/28/19 19:34 Dose: 0.1 mg Admin: 12/27/19 19:17 Dose: 0.1 mg Admin: 12/26/19 19:22 Dose: 0.1 mg Admin: 12/25/19 19:11 Dose: 0.1 mg Admin: 12/24/19 19:16 Dose: 0.1 mg Admin: 12/23/19 19:17 Dose: 0.1 mg Admin: 12/22/19 19:11 Dose: 0.1 mg Admin: 12/21/19 19:44 Dose: 0.1 mg Admin: 12/20/19 19:28 Dose: 0.1 mg Admin: 12/19/19 19:27 Dose: 0.1 mg Admin: 12/18/19 19:10 Dose: 0.1 mg Admin: 12/17/19 19:32 Dose: 0.1 mg Admin: 12/16/19 19:12 Dose: 0.1 mg Admin: 12/15/19 19:27 Dose: 0.1 mg Admin: 12/14/19 19:17 Dose: 0.1 mg Admin: 12/13/19 19:20 Dose: 0.1 mg Admin: 12/12/19 19:13 Dose: 0.1 mg Admin: 12/11/19 19:07 Dose: 0.1 mg Admin: 12/10/19 19:21 Dose: 0.1 mg Admin: 12/09/19 19:35 Dose: 0.1 mg Admin: 12/08/19 19:40 Dose: 0.1 mg Admin: 12/07/19 19:30 Dose: 0.1 mg Admin: 12/06/19 19:14 Dose: 0.1 mg Admin: 12/05/19 19:08 Dose: 0.1 mg Admin: 12/04/19 19:00 Dose: 0.1 mg Admin: 12/03/19 19:49 Dose: 0.1 mg Admin: 12/02/19 19:45 Dose: 0.1 mg Admin: 12/01/19 19:11 Dose: 0.1 mg Admin: 11/30/19 19:05 Dose: 0.1 mg Admin: 11/29/19 19:25 Dose: 0.1 mg Admin: 11/28/19 19:21 Dose: 0.1 mg Admin: 11/27/19 19:36 Dose: 0.1 mg Admin: 11/26/19 19:16 Dose: 0.1 mg Admin: 11/25/19 19:07 Dose: 0.1 mg Admin: 11/24/19 19:34 Dose: 0.1 mg Admin: 11/23/19 19:51 Dose: 0.1 mg Admin: 11/22/19 19:27 Dose: 0.1 mg Admin: 11/21/19 19:27 Dose: 0.1 mg Admin: 11/20/19 19:16 Dose: 0.1 mg Admin: 11/19/19 19:29 Dose: 0.1 mg Admin: 11/18/19 19:31 Dose: 0.1 mg Admin: 11/17/19 19:11 Dose: 0.1 mg Admin: 11/16/19 19:37 Dose: 0.1 mg Admin: 11/15/19 19:37 Dose: 0.1 mg Admin: 11/14/19 19:15 Dose: 0.1 mg Admin: 11/13/19 19:20 Dose: 0.1 mg Admin: 11/12/19 19:30 Dose: 0.1 mg Admin: 11/11/19 19:24 Dose: 0.1 mg Admin: 11/10/19 19:33 Dose: 0.1 mg Admin: 11/09/19 19:09 Dose: 0.1 mg Admin: 11/08/19 19:23 Dose: 0.1 mg Admin: 11/07/19 19:38 Dose: 0.1 mg Admin: 11/06/19 19:02 Dose: 0.1 mg Admin: 11/05/19 19:28 Dose: 0.1 mg Admin: 11/04/19 19:40 Dose: 0.1 mg Admin: 11/03/19 20:03 Dose: 0.1 mg Admin: 11/02/19 19:21 Dose: 0.1 mg Admin: 11/01/19 19:13 Dose: 0.1 mg Admin: 10/31/19 19:47 Dose: 0.1 mg Admin: 10/30/19 19:18 Dose: 0.1 mg Admin: 10/29/19 19:20 Dose: 0.1 mg Admin: 10/28/19 19:38 Dose: 0.1 mg Admin: 10/27/19 19:40 Dose: 0.1 mg Admin: 10/26/19 19:22 Dose: 0.1 mg Admin: 10/25/19 19:22 Dose: 0.1 mg Admin: 10/24/19 19:20 Dose: 0.1 mg Admin: 10/23/19 19:00 Dose: 0.1 mg Admin: 10/22/19 19:11 Dose: 0.1 mg Admin: 10/21/19 19:16 Dose: 0.1 mg Admin: 10/20/19 19:11 Dose: 0.1 mg Admin: 10/19/19 19:27 Dose: 0.1 mg Admin: 10/18/19 19:26 Dose: 0.1 mg Admin: 10/17/19 19:42 Dose: 0.1 mg Admin: 10/16/19 19:34 Dose: 0.1 mg Admin: 10/15/19 19:13 Dose: 0.1 mg Admin: 10/14/19 19:21 Dose: 0.1 mg Admin: 10/13/19 19:31 Dose: 0.1 mg Admin: 10/12/19 19:29 Dose: 0.1 mg Admin: 10/11/19 19:53 Dose: 0.1 mg Admin: 10/10/19 19:55 Dose: 0.1 mg Admin: 10/09/19 19:22 Dose: 0.1 mg Admin: 10/08/19 19:07 Dose: 0.1 mg Admin: 10/07/19 19:14 Dose: 0.1 mg Admin: 10/06/19 19:39 Dose: 0.1 mg Admin: 10/05/19 19:58 Dose: 0.1 mg Admin: 10/04/19 19:31 Dose: 0.1 mg Admin: 10/03/19 19:27 Dose: 0.1 mg Admin: 10/02/19 19:34 Dose: 0.1 mg Admin: 10/01/19 19:42 Dose: 0.1 mg Admin: 09/30/19 19:15 Dose: 0.1 mg Admin: 09/29/19 19:17 Dose: 0.1 mg Admin: 09/28/19 19:32 Dose: 0.1 mg Admin: 09/27/19 19:40 Dose: 0.1 mg Admin: 09/26/19 19:16 Dose: 0.1 mg Admin: 09/25/19 19:31 Dose: 0.1 mg Admin: 09/24/19 19:22 Dose: 0.1 mg Admin: 09/23/19 19:13 Dose: 0.1 mg Admin: 09/22/19 20:13 Dose: 0.1 mg Admin: 09/21/19 19:52 Dose: 0.1 mg Admin: 09/20/19 19:13 Dose: 0.1 mg Admin: 09/19/19 19:18 Dose: 0.1 mg Admin: 09/18/19 19:08 Dose: 0.1 mg Admin: 09/17/19 19:36 Dose: 0.1 mg Admin: 09/16/19 19:42 Dose: 0.1 mg Admin: 09/15/19 19:56 Dose: 0.1 mg Admin: 09/14/19 19:49 Dose: 0.1 mg Admin: 09/13/19 19:51 Dose: 0.1 mg Admin: 09/12/19 19:17 Dose: 0.1 mg Admin: 09/11/19 19:35 Dose: 0.1 mg Admin: 09/10/19 19:31 Dose: 0.1 mg Admin: 09/09/19 19:20 Dose: 0.1 mg Admin: 09/08/19 19:38 Dose: 0.1 mg Admin: 09/07/19 19:09 Dose: 0.1 mg Admin: 09/06/19 19:12 Dose: 0.1 mg Admin: 09/05/19 19:44 Dose: 0.1 mg Admin: 09/04/19 19:35 Dose: 0.1 mg Admin: 09/03/19 19:29 Dose: 0.1 mg Admin: 09/02/19 19:17 Dose: 0.1 mg Admin: 09/01/19 19:18 Dose: 0.1 mg Admin: 08/31/19 19:40 Dose: 0.1 mg Admin: 08/30/19 19:28 Dose: 0.1 mg Admin: 08/29/19 19:11 Dose: 0.1 mg Admin: 08/28/19 19:26 Dose: 0.1 mg Admin: 08/27/19 19:16 Dose: 0.1 mg Admin: 08/26/19 19:20 Dose: 0.1 mg Admin: 08/25/19 19:27 Dose: 0.1 mg Admin: 08/24/19 19:17 Dose: 0.1 mg Admin: 08/23/19 19:10 Dose: 0.1 mg Admin: 08/22/19 19:10 Dose: 0.1 mg Admin: 08/21/19 19:27 Dose: 0.1 mg Admin: 08/20/19 19:05 Dose: 0.1 mg Admin: 08/19/19 19:22 Dose: 0.1 mg Admin: 08/18/19 19:40 Dose: 0.1 mg Admin: 08/17/19 19:24 Dose: 0.1 mg Admin: 08/16/19 19:12 Dose: 0.1 mg Admin: 08/15/19 19:16 Dose: 0.1 mg Admin: 08/14/19 19:18 Dose: 0.1 mg Admin: 08/13/19 19:22 Dose: 0.1 mg Admin: 08/12/19 19:08 Dose: 0.1 mg Admin: 08/11/19 19:17 Dose: 0.1 mg Admin: 08/10/19 19:04 Dose: 0.1 mg Admin: 08/09/19 19:33 Dose: 0.1 mg Admin: 08/08/19 19:48 Dose: 0.1 mg Admin: 08/07/19 19:43 Dose: 0.1 mg Admin: 08/06/19 19:32 Dose: 0.1 mg Admin: 08/05/19 19:20 Dose: 0.1 mg Admin: 08/04/19 19:12 Dose: 0.1 mg Admin: 08/03/19 19:38 Dose: 0.1 mg Admin: 08/02/19 19:15 Dose: 0.1 mg Admin: 08/01/19 19:05 Dose: 0.1 mg Admin: 07/31/19 19:29 Dose: 0.1 mg Admin: 07/30/19 19:24 Dose: 0.1 mg Admin: 07/29/19 19:30 Dose: 0.1 mg Admin: 07/28/19 19:15 Dose: 0.1 mg Admin: 07/27/19 19:22 Dose: 0.1 mg Admin: 07/26/19 19:37 Dose: 0.1 mg Admin: 07/25/19 19:48 Dose: 0.1 mg Admin: 07/24/19 19:27 Dose: 0.1 mg Admin: 07/23/19 19:32 Dose: 0.1 mg Admin: 07/22/19 19:27 Dose: 0.1 mg Admin: 07/21/19 19:34 Dose: 0.1 mg Admin: 07/20/19 19:18 Dose: 0.1 mg Admin: 07/19/19 19:20 Dose: 0.1 mg Admin: 07/18/19 19:36 Dose: 0.1 mg Admin: 07/17/19 19:17 Dose: 0.1 mg Admin: 07/16/19 19:40 Dose: 0.1 mg Admin: 07/15/19 19:11 Dose: 0.1 mg Admin: 07/14/19 19:22 Dose: 0.1 mg Admin: 07/13/19 19:22 Dose: 0.1 mg Admin: 07/12/19 19:24 Dose: 0.1 mg Admin: 07/11/19 19:26 Dose: 0.1 mg Admin: 07/10/19 19:25 Dose: 0.1 mg Admin: 07/09/19 19:17 Dose: 0.1 mg Admin: 07/08/19 19:25 Dose: 0.1 mg Admin: 07/07/19 19:16 Dose: 0.1 mg Admin: 07/06/19 19:25 Dose: 0.1 mg Admin: 07/05/19 19:52 Dose: 0.1 mg Admin: 07/04/19 19:23 Dose: 0.1 mg Admin: 07/03/19 19:12 Dose: 0.1 mg Admin: 07/02/19 19:18 Dose: 0.1 mg Admin: 07/01/19 19:18 Dose: 0.1 mg Admin: 06/30/19 19:12 Dose: 0.1 mg Admin: 06/29/19 19:15 Dose: 0.1 mg Admin: 06/28/19 19:07 Dose: 0.1 mg Admin: 06/27/19 19:09 Dose: 0.1 mg Admin: 06/26/19 19:07 Dose: 0.1 mg Admin: 06/25/19 19:25 Dose: 0.1 mg Admin: 06/24/19 19:11 Dose: 0.1 mg Admin: 06/23/19 19:09 Dose: 0.1 mg Admin: 06/22/19 19:17 Dose: 0.1 mg Admin: 06/21/19 19:18 Dose: 0.1 mg Admin: 06/20/19 19:21 Dose: 0.1 mg Admin: 06/19/19 19:15 Dose: 0.1 mg Admin: 06/18/19 19:18 Dose: 0.1 mg Admin: 06/17/19 19:15 Dose: 0.1 mg Admin: 06/16/19 19:07 Dose: 0.1 mg Admin: 06/15/19 19:43 Dose: 0.1 mg Admin: 06/14/19 19:18 Dose: 0.1 mg Admin: 06/13/19 19:18 Dose: 0.1 mg Admin: 06/12/19 19:22 Dose: 0.1 mg Admin: 06/11/19 19:29 Dose: 0.1 mg Admin: 06/10/19 19:15 Dose: 0.1 mg Admin: 06/09/19 19:32 Dose: 0.1 mg Admin: 06/08/19 19:12 Dose: 0.1 mg Admin: 06/07/19 19:12 Dose: 0.1 mg Admin: 06/06/19 19:16 Dose: 0.1 mg Admin: 06/05/19 19:22 Dose: 0.1 mg Admin: 06/04/19 19:20 Dose: 0.1 mg Admin: 06/03/19 19:21 Dose: 0.1 mg Admin: 06/02/19 19:59 Dose: 0.1 mg Admin: 06/01/19 19:24 Dose: 0.1 mg Admin: 05/31/19 20:02 Dose: 0.1 mg Admin: 05/30/19 19:16 Dose: 0.1 mg Admin: 05/29/19 19:08 Dose: 0.1 mg Admin: 05/28/19 19:17 Dose: 0.1 mg Admin: 05/27/19 19:19 Dose: 0.1 mg Admin: 05/26/19 19:49 Dose: 0.1 mg Admin: 05/25/19 19:11 Dose: 0.1 mg Admin: 05/24/19 19:29 Dose: 0.1 mg Fludrocortisone Acetate (Florinef) 0.2 mg PO QAM [facility] Admin: 04/13/20 07:25 Dose: 0.2 mg Admin: 04/12/20 07:46 Dose: 0.2 mg Admin: 04/11/20 08:11 Dose: 0.2 mg Admin: 04/10/20 07:45 Dose: 0.2 mg Admin: 04/09/20 07:22 Dose: 0.2 mg Admin: 04/08/20 07:23 Dose: 0.2 mg Admin: 04/07/20 08:16 Dose: 0.2 mg Admin: 04/06/20 08:08 Dose: 0.2 mg Admin: 04/05/20 07:47 Dose: 0.2 mg Admin: 04/04/20 08:33 Dose: 0.2 mg Admin: 04/03/20 07:45 Dose: 0.2 mg Admin: 04/02/20 07:50 Dose: 0.2 mg Admin: 04/01/20 07:54 Dose: 0.2 mg Admin: 03/31/20 08:20 Dose: 0.2 mg Admin: 03/30/20 08:37 Dose: 0.2 mg Admin: 03/29/20 07:21 Dose: 0.2 mg Admin: 03/28/20 07:31 Dose: 0.2 mg Admin: 03/27/20 08:18 Dose: 0.2 mg Admin: 03/26/20 07:40 Dose: 0.2 mg Admin: 03/25/20 07:26 Dose: 0.2 mg Admin: 03/24/20 08:01 Dose: 0.2 mg Admin: 03/23/20 08:05 Dose: 0.2 mg Admin: 03/22/20 07:36 Dose: 0.2 mg Admin: 03/21/20 08:08 Dose: 0.2 mg Admin: 03/20/20 07:41 Dose: 0.2 mg Admin: 03/19/20 08:03 Dose: 0.2 mg Admin: 03/18/20 08:27 Dose: 0.2 mg Admin: 03/17/20 08:04 Dose: 0.2 mg Admin: 03/16/20 08:35 Dose: 0.2 mg Admin: 03/15/20 08:20 Dose: 0.2 mg Admin: 03/14/20 08:17 Dose: 0.2 mg Admin: 03/13/20 08:32 Dose: 0.2 mg Admin: 03/12/20 08:19 Dose: 0.2 mg Admin: 03/11/20 08:44 Dose: 0.2 mg Admin: 03/10/20 08:13 Dose: 0.2 mg Admin: 03/09/20 08:26 Dose: 0.2 mg Admin: 03/08/20 09:17 Dose: 0.2 mg Admin: 03/07/20 08:15 Dose: 0.2 mg Admin: 03/06/20 07:52 Dose: 0.2 mg Admin: 03/05/20 08:08 Dose: 0.2 mg Admin: 03/04/20 07:30 Dose: 0.2 mg Admin: 03/03/20 08:19 Dose: 0.2 mg Admin: 03/02/20 08:35 Dose: 0.2 mg Admin: 03/01/20 08:25 Dose: 0.2 mg Admin: 02/29/20 08:02 Dose: 0.2 mg Admin: 02/28/20 07:59 Dose: 0.2 mg Admin: 02/27/20 08:15 Dose: 0.2 mg Admin: 02/26/20 08:21 Dose: 0.2 mg Admin: 02/25/20 07:55 Dose: 0.2 mg Admin: 02/24/20 08:25 Dose: 0.2 mg Admin: 02/23/20 08:29 Dose: 0.2 mg Admin: 02/22/20 08:16 Dose: 0.2 mg Admin: 02/21/20 07:57 Dose: 0.2 mg Admin: 02/20/20 08:12 Dose: 0.2 mg Admin: 02/19/20 08:17 Dose: 0.2 mg Admin: 02/18/20 08:15 Dose: 0.2 mg Admin: 02/17/20 08:28 Dose: 0.2 mg Admin: 02/16/20 08:23 Dose: 0.2 mg Admin: 02/15/20 07:00 Dose: 0.2 mg Admin: 02/14/20 08:27 Dose: 0.2 mg Admin: 02/13/20 07:49 Dose: 0.2 mg Admin: 02/12/20 07:07 Dose: 0.2 mg Admin: 02/11/20 07:15 Dose: 0.2 mg Admin: 02/10/20 08:33 Dose: 0.2 mg Admin: 02/09/20 08:38 Dose: 0.2 mg Admin: 02/08/20 07:13 Dose: 0.2 mg Admin: 02/07/20 08:27 Dose: 0.2 mg Admin: 02/06/20 08:11 Dose: 0.2 mg Admin: 02/05/20 08:16 Dose: 0.2 mg Admin: 02/04/20 09:05 Dose: 0.2 mg Admin: 02/03/20 07:28 Dose: 0.2 mg Admin: 02/02/20 07:06 Dose: 0.2 mg Admin: 02/01/20 07:07 Dose: 0.2 mg Admin: 01/31/20 07:06 Dose: 0.2 mg Admin: 01/30/20 08:06 Dose: 0.2 mg Admin: 01/29/20 08:00 Dose: 0.2 mg Admin: 01/28/20 07:54 Dose: 0.2 mg Admin: 01/27/20 07:05 Dose: 0.2 mg Admin: 01/26/20 07:30 Dose: 0.2 mg Admin: 01/25/20 07:10 Dose: 0.2 mg Admin: 01/24/20 07:55 Dose: 0.2 mg Admin: 01/23/20 07:09 Dose: 0.2 mg Admin: 01/22/20 07:14 Dose: 0.2 mg Admin: 01/21/20 07:59 Dose: 0.2 mg Admin: 01/20/20 07:59 Dose: 0.2 mg Admin: 01/19/20 07:54 Dose: 0.2 mg Admin: 01/18/20 08:04 Dose: 0.2 mg Admin: 01/17/20 08:06 Dose: 0.2 mg Admin: 01/16/20 08:18 Dose: 0.2 mg Admin: 01/15/20 08:17 Dose: 0.2 mg Admin: 01/14/20 08:09 Dose: 0.2 mg Admin: 01/13/20 08:20 Dose: 0.2 mg Admin: 01/12/20 08:16 Dose: 0.2 mg Admin: 01/11/20 07:52 Dose: 0.2 mg Admin: 01/10/20 08:30 Dose: 0.2 mg Admin: 01/09/20 08:07 Dose: 0.2 mg Admin: 01/08/20 08:11 Dose: 0.2 mg Admin: 01/07/20 08:11 Dose: 0.2 mg Admin: 01/06/20 08:22 Dose: 0.2 mg Admin: 01/05/20 08:00 Dose: 0.2 mg Admin: 01/04/20 07:53 Dose: 0.2 mg Admin: 01/03/20 08:12 Dose: 0.2 mg Admin: 01/02/20 07:58 Dose: 0.2 mg Admin: 01/01/20 07:12 Dose: 0.2 mg Admin: 12/31/19 08:05 Dose: 0.2 mg Admin: 12/30/19 08:00 Dose: 0.2 mg Admin: 12/29/19 08:18 Dose: 0.2 mg Admin: 12/28/19 08:00 Dose: 0.2 mg Admin: 12/27/19 07:55 Dose: 0.2 mg Admin: 12/26/19 07:57 Dose: 0.2 mg Admin: 12/25/19 07:52 Dose: 0.2 mg Admin: 12/24/19 07:51 Dose: 0.2 mg Admin: 12/23/19 08:05 Dose: 0.2 mg Admin: 12/22/19 07:02 Dose: 0.2 mg Admin: 12/21/19 07:24 Dose: 0.2 mg Admin: 12/20/19 07:15 Dose: 0.2 mg Admin: 12/19/19 07:45 Dose: 0.2 mg Admin: 12/18/19 08:06 Dose: 0.2 mg Admin: 12/17/19 07:54 Dose: 0.2 mg Admin: 12/16/19 07:29 Dose: 0.2 mg Admin: 12/15/19 07:05 Dose: 0.2 mg Admin: 12/14/19 07:35 Dose: 0.2 mg Admin: 12/13/19 08:00 Dose: 0.2 mg Admin: 12/12/19 07:07 Dose: 0.2 mg Admin: 12/11/19 07:09 Dose: 0.2 mg Admin: 12/10/19 07:50 Dose: 0.2 mg Admin: 12/09/19 07:49 Dose: 0.2 mg Admin: 12/08/19 08:47 Dose: 0.2 mg Admin: 12/07/19 07:57 Dose: 0.2 mg Admin: 12/06/19 08:07 Dose: 0.2 mg Admin: 12/05/19 08:13 Dose: 0.2 mg Admin: 12/04/19 08:16 Dose: 0.2 mg Admin: 12/03/19 08:10 Dose: 0.2 mg Admin: 12/02/19 08:05 Dose: 0.2 mg Admin: 12/01/19 07:21 Dose: 0.2 mg Admin: 11/30/19 08:07 Dose: 0.2 mg Admin: 11/29/19 07:18 Dose: 0.2 mg Admin: 11/28/19 08:09 Dose: 0.2 mg Admin: 11/27/19 08:08 Dose: 0.2 mg Admin: 11/26/19 08:17 Dose: 0.2 mg Admin: 11/25/19 07:13 Dose: 0.2 mg Admin: 11/24/19 08:25 Dose: 0.2 mg Admin: 11/23/19 07:02 Dose: 0.2 mg Admin: 11/22/19 07:47 Dose: 0.2 mg Admin: 11/21/19 07:12 Dose: 0.2 mg Admin: 11/20/19 07:59 Dose: 0.2 mg Admin: 11/19/19 07:57 Dose: 0.2 mg Admin: 11/18/19 07:10 Dose: 0.2 mg Admin: 11/17/19 08:09 Dose: 0.2 mg Admin: 11/16/19 08:02 Dose: 0.2 mg Admin: 11/15/19 07:36 Dose: 0.2 mg Admin: 11/14/19 07:51 Dose: 0.2 mg Admin: 11/13/19 07:51 Dose: 0.2 mg Admin: 11/12/19 08:03 Dose: 0.2 mg Admin: 11/11/19 07:45 Dose: 0.2 mg Admin: 11/10/19 07:05 Dose: 0.2 mg Admin: 11/09/19 07:04 Dose: 0.2 mg Admin: 11/08/19 07:33 Dose: 0.2 mg Admin: 11/07/19 07:41 Dose: 0.2 mg Admin: 11/06/19 07:40 Dose: 0.2 mg Admin: 11/05/19 07:45 Dose: 0.2 mg Admin: 11/04/19 07:57 Dose: 0.2 mg Admin: 11/03/19 07:53 Dose: 0.2 mg Admin: 11/02/19 08:04 Dose: 0.2 mg Admin: 11/01/19 08:22 Dose: 0.2 mg Admin: 10/31/19 07:22 Dose: 0.2 mg Admin: 10/30/19 07:17 Dose: 0.2 mg Admin: 10/29/19 07:21 Dose: 0.2 mg Admin: 10/28/19 08:09 Dose: 0.2 mg Admin: 10/27/19 08:05 Dose: 0.2 mg Admin: 10/26/19 07:58 Dose: 0.2 mg Admin: 10/25/19 07:34 Dose: 0.2 mg Admin: 10/24/19 07:52 Dose: 0.2 mg Admin: 10/23/19 08:19 Dose: 0.2 mg Admin: 10/22/19 07:56 Dose: 0.2 mg Admin: 10/21/19 07:55 Dose: 0.2 mg Admin: 10/20/19 07:59 Dose: 0.2 mg Admin: 10/19/19 07:25 Dose: 0.2 mg Admin: 10/18/19 08:02 Dose: 0.2 mg Admin: 10/17/19 08:01 Dose: 0.2 mg Admin: 10/16/19 07:58 Dose: 0.2 mg Admin: 10/15/19 08:11 Dose: 0.2 mg Admin: 10/14/19 08:19 Dose: 0.2 mg Admin: 10/13/19 07:29 Dose: 0.2 mg Admin: 10/12/19 07:27 Dose: 0.2 mg Admin: 10/11/19 07:23 Dose: 0.2 mg Admin: 10/10/19 07:54 Dose: 0.2 mg Admin: 10/09/19 07:14 Dose: 0.2 mg Admin: 10/08/19 07:45 Dose: 0.2 mg Admin: 10/07/19 08:16 Dose: 0.2 mg Admin: 10/06/19 07:57 Dose: 0.2 mg Admin: 10/05/19 07:50 Dose: 0.2 mg Admin: 10/04/19 08:20 Dose: 0.2 mg Admin: 10/03/19 07:50 Dose: 0.2 mg Admin: 10/02/19 08:11 Dose: 0.2 mg Admin: 10/01/19 08:12 Dose: 0.2 mg Admin: 09/30/19 07:40 Dose: 0.2 mg Admin: 09/29/19 07:32 Dose: 0.2 mg Admin: 09/28/19 08:13 Dose: 0.2 mg Admin: 09/27/19 07:35 Dose: 0.2 mg Admin: 09/26/19 07:38 Dose: 0.2 mg Admin: 09/25/19 07:38 Dose: 0.2 mg Admin: 09/24/19 07:36 Dose: 0.2 mg Admin: 09/23/19 09:01 Dose: 0.2 mg Admin: 09/22/19 08:07 Dose: 0.2 mg Admin: 09/21/19 07:44 Dose: 0.2 mg Admin: 09/20/19 07:55 Dose: 0.2 mg Admin: 09/19/19 07:17 Dose: 0.2 mg Admin: 09/18/19 07:26 Dose: 0.2 mg Admin: 09/17/19 07:29 Dose: 0.2 mg Admin: 09/16/19 08:16 Dose: 0.2 mg Admin: 09/15/19 07:33 Dose: 0.2 mg Admin: 09/14/19 08:14 Dose: 0.2 mg Admin: 09/13/19 07:29 Dose: 0.2 mg Admin: 09/12/19 07:49 Dose: 0.2 mg Admin: 09/11/19 07:45 Dose: 0.2 mg Admin: 09/10/19 08:09 Dose: 0.2 mg Admin: 09/09/19 08:16 Dose: 0.2 mg Admin: 09/08/19 07:22 Dose: 0.2 mg Admin: 09/07/19 07:43 Dose: 0.2 mg Admin: 09/06/19 08:07 Dose: 0.2 mg Admin: 09/05/19 07:29 Dose: 0.2 mg Admin: 09/04/19 07:21 Dose: 0.2 mg Admin: 09/03/19 07:42 Dose: 0.2 mg Admin: 09/02/19 08:33 Dose: 0.2 mg Admin: 09/01/19 07:32 Dose: 0.2 mg Admin: 08/31/19 07:48 Dose: 0.2 mg Admin: 08/30/19 07:27 Dose: 0.2 mg Admin: 08/29/19 07:29 Dose: 0.2 mg Admin: 08/28/19 07:46 Dose: 0.2 mg Admin: 08/27/19 07:59 Dose: 0.2 mg Admin: 08/26/19 08:02 Dose: 0.2 mg Admin: 08/25/19 07:58 Dose: 0.2 mg Admin: 08/24/19 08:15 Dose: 0.2 mg Admin: 08/23/19 07:30 Dose: 0.2 mg Admin: 08/22/19 08:08 Dose: 0.2 mg Admin: 08/21/19 07:54 Dose: 0.2 mg Admin: 08/20/19 07:55 Dose: 0.2 mg Admin: 08/19/19 07:13 Dose: 0.2 mg Admin: 08/18/19 07:28 Dose: 0.2 mg Admin: 08/17/19 07:49 Dose: 0.2 mg Admin: 08/16/19 07:34 Dose: 0.2 mg Admin: 08/15/19 07:35 Dose: 0.2 mg Admin: 08/14/19 07:52 Dose: 0.2 mg Admin: 08/13/19 07:58 Dose: 0.2 mg Admin: 08/12/19 07:51 Dose: 0.2 mg Admin: 08/11/19 07:25 Dose: 0.2 mg Admin: 08/10/19 07:45 Dose: 0.2 mg Admin: 08/09/19 07:35 Dose: 0.2 mg Admin: 08/08/19 07:15 Dose: 0.2 mg Admin: 08/07/19 07:31 Dose: 0.2 mg Admin: 08/06/19 07:27 Dose: 0.2 mg Admin: 08/05/19 07:51 Dose: 0.2 mg Admin: 08/04/19 07:49 Dose: 0.2 mg Admin: 08/03/19 08:01 Dose: 0.2 mg Admin: 08/02/19 14:36 Dose: Admin: 08/01/19 07:53 Dose: 0.2 mg Admin: 07/31/19 07:37 Dose: 0.2 mg Admin: 07/30/19 08:02 Dose: 0.2 mg Admin: 07/29/19 07:19 Dose: 0.2 mg Admin: 07/28/19 07:35 Dose: 0.2 mg Admin: 07/27/19 07:39 Dose: 0.2 mg Admin: 07/26/19 08:00 Dose: 0.2 mg Admin: 07/25/19 07:52 Dose: 0.2 mg Admin: 07/24/19 07:31 Dose: 0.2 mg Admin: 07/23/19 08:18 Dose: 0.2 mg Admin: 07/22/19 08:09 Dose: 0.2 mg Admin: 07/21/19 08:16 Dose: 0.2 mg Admin: 07/20/19 07:57 Dose: 0.2 mg Admin: 07/19/19 07:31 Dose: 0.2 mg Admin: 07/18/19 07:33 Dose: 0.2 mg Admin: 07/17/19 07:34 Dose: 0.2 mg Admin: 07/16/19 07:34 Dose: 0.2 mg Admin: 07/15/19 08:03 Dose: 0.2 mg Admin: 07/14/19 08:01 Dose: 0.2 mg Admin: 07/13/19 07:59 Dose: 0.2 mg Admin: 07/12/19 07:29 Dose: 0.2 mg Admin: 07/11/19 07:52 Dose: 0.2 mg Admin: 07/10/19 08:02 Dose: 0.2 mg Admin: 07/09/19 07:24 Dose: 0.2 mg Admin: 07/08/19 07:25 Dose: 0.2 mg Admin: 07/07/19 08:02 Dose: 0.2 mg Admin: 07/06/19 07:55 Dose: 0.2 mg Admin: 07/05/19 07:45 Dose: 0.2 mg Admin: 07/04/19 07:26 Dose: 0.2 mg Admin: 07/03/19 07:47 Dose: 0.2 mg Admin: 07/02/19 08:25 Dose: 0.2 mg Admin: 07/01/19 08:24 Dose: 0.2 mg Admin: 06/30/19 08:08 Dose: 0.2 mg Admin: 06/29/19 07:48 Dose: 0.2 mg Admin: 06/28/19 07:52 Dose: 0.2 mg Admin: 06/27/19 07:52 Dose: 0.2 mg Admin: 06/26/19 08:01 Dose: 0.2 mg Admin: 06/25/19 08:10 Dose: 0.2 mg Admin: 06/24/19 07:44 Dose: 0.2 mg Admin: 06/23/19 08:09 Dose: 0.2 mg Admin: 06/22/19 07:32 Dose: 0.2 mg Admin: 06/21/19 07:21 Dose: 0.2 mg Admin: 06/20/19 07:17 Dose: 0.2 mg Admin: 06/19/19 07:24 Dose: 0.2 mg Admin: 06/18/19 08:04 Dose: 0.2 mg Admin: 06/17/19 07:50 Dose: 0.2 mg Admin: 06/16/19 07:48 Dose: 0.2 mg Admin: 06/15/19 07:19 Dose: 0.2 mg Admin: 06/14/19 08:29 Dose: 0.2 mg Admin: 06/13/19 08:22 Dose: 0.2 mg Admin: 06/12/19 08:57 Dose: 0.2 mg Admin: 06/11/19 08:33 Dose: 0.2 mg Admin: 06/10/19 07:56 Dose: 0.2 mg Admin: 06/09/19 08:01 Dose: 0.2 mg Admin: 06/08/19 07:13 Dose: 0.2 mg Admin: 06/07/19 07:26 Dose: 0.2 mg Admin: 06/06/19 07:23 Dose: 0.2 mg Admin: 06/05/19 07:25 Dose: 0.2 mg Admin: 06/04/19 08:11 Dose: 0.2 mg Admin: 06/03/19 08:27 Dose: 0.2 mg Admin: 06/02/19 07:19 Dose: 0.2 mg Admin: 06/01/19 08:32 Dose: 0.2 mg Admin: 05/31/19 07:41 Dose: 0.2 mg Admin: 05/30/19 08:06 Dose: 0.2 mg Admin: 05/29/19 08:06 Dose: 0.2 mg Admin: 05/28/19 07:24 Dose: 0.2 mg Admin: 05/27/19 08:08 Dose: 0.2 mg Admin: 05/26/19 08:23 Dose: 0.2 mg Admin: 05/25/19 08:27 Dose: 0.2 mg Furosemide (Lasix) 20 mg PO BID MIES[facility] Last Admin: 04/13/20 07:26 Dose: 20 mg Admin: 04/12/20 17:20 Dose: 20 mg Admin: 04/12/20 07:46 Dose: 20 mg Admin: 04/11/20 17:09 Dose: 20 mg Admin: 04/11/20 08:11 Dose: 20 mg Admin: 04/10/20 17:02 Dose: 20 mg Admin: 04/10/20 07:47 Dose: 20 mg Admin: 04/09/20 17:24 Dose: 20 mg Admin: 04/09/20 07:23 Dose: 20 mg Admin: 04/08/20 17:51 Dose: 20 mg Admin: 04/08/20 07:24 Dose: 20 mg Admin: 04/07/20 17:16 Dose: 20 mg Admin: 04/07/20 08:17 Dose: 20 mg Admin: 04/06/20 17:13 Dose: 20 mg Admin: 04/06/20 08:08 Dose: 20 mg Admin: 04/05/20 17:16 Dose: 20 mg Admin: 04/05/20 07:48 Dose: 20 mg Admin: 04/04/20 17:19 Dose: 20 mg Admin: 04/04/20 08:32 Dose: 20 mg Admin: 04/03/20 17:02 Dose: 20 mg Admin: 04/03/20 07:45 Dose: 20 mg Admin: 04/02/20 17:05 Dose: 20 mg Admin: 04/02/20 07:50 Dose: 20 mg Admin: 04/01/20 17:06 Dose: 20 mg Admin: 04/01/20 07:54 Dose: 20 mg Admin: 03/31/20 17:17 Dose: 20 mg Admin: 03/31/20 08:20 Dose: 20 mg Admin: 03/30/20 17:27 Dose: 20 mg Admin: 03/30/20 08:37 Dose: 20 mg Admin: 03/29/20 17:12 Dose: 20 mg Admin: 03/29/20 07:22 Dose: 20 mg Admin: 03/28/20 17:09 Dose: 20 mg Admin: 03/28/20 07:31 Dose: 20 mg Admin: 03/27/20 17:09 Dose: 20 mg Admin: 03/27/20 08:18 Dose: 20 mg Admin: 03/26/20 17:15 Dose: 20 mg Admin: 03/26/20 07:40 Dose: 20 mg Admin: 03/25/20 17:04 Dose: 20 mg Admin: 03/25/20 07:26 Dose: 20 mg Admin: 03/24/20 17:20 Dose: 20 mg Admin: 03/24/20 08:01 Dose: 20 mg Admin: 03/23/20 17:01 Dose: 20 mg Admin: 03/23/20 08:05 Dose: 20 mg Admin: 03/22/20 17:00 Dose: 20 mg Admin: 03/22/20 07:36 Dose: 20 mg Admin: 03/21/20 17:07 Dose: 20 mg Admin: 03/21/20 08:09 Dose: 20 mg Admin: 03/20/20 17:10 Dose: 20 mg Admin: 03/20/20 07:41 Dose: 20 mg Admin: 03/19/20 17:13 Dose: 20 mg Admin: 03/19/20 08:03 Dose: 20 mg Admin: 03/18/20 17:55 Dose: 20 mg Admin: 03/18/20 08:27 Dose: 20 mg Admin: 03/17/20 17:22 Dose: 20 mg Admin: 03/17/20 08:04 Dose: 20 mg Admin: 03/16/20 17:41 Dose: 20 mg Admin: 03/16/20 08:35 Dose: 20 mg Admin: 03/15/20 17:37 Dose: 20 mg Admin: 03/15/20 08:20 Dose: 20 mg Admin: 03/14/20 17:23 Dose: 20 mg Admin: 03/14/20 08:18 Dose: 20 mg Admin: 03/13/20 17:37 Dose: 20 mg Admin: 03/13/20 08:32 Dose: 20 mg Admin: 03/12/20 17:40 Dose: 20 mg Admin: 03/12/20 08:19 Dose: 20 mg Admin: 03/11/20 17:06 Dose: 20 mg Admin: 03/11/20 08:44 Dose: 20 mg Admin: 03/10/20 17:29 Dose: 20 mg Admin: 03/10/20 08:13 Dose: 20 mg Admin: 03/09/20 17:50 Dose: 20 mg Admin: 03/09/20 08:26 Dose: 20 mg Admin: 03/08/20 17:27 Dose: 20 mg Admin: 03/08/20 09:18 Dose: 20 mg Admin: 03/07/20 17:39 Dose: 20 mg Admin: 03/07/20 08:16 Dose: 20 mg Admin: 03/06/20 17:32 Dose: 20 mg Admin: 03/06/20 07:52 Dose: 20 mg Admin: 03/05/20 17:23 Dose: 20 mg Admin: 03/05/20 08:08 Dose: 20 mg Admin: 03/04/20 17:05 Dose: 20 mg Admin: 03/04/20 07:30 Dose: 20 mg Admin: 03/03/20 17:52 Dose: 20 mg Admin: 03/03/20 08:18 Dose: 20 mg Admin: 03/02/20 17:42 Dose: 20 mg Admin: 03/02/20 08:36 Dose: 20 mg Admin: 03/01/20 17:32 Dose: 20 mg Admin: 03/01/20 08:25 Dose: 20 mg Admin: 02/29/20 17:37 Dose: 20 mg Admin: 02/29/20 08:02 Dose: 20 mg Admin: 02/28/20 17:27 Dose: 20 mg Admin: 02/28/20 07:59 Dose: 20 mg Admin: 02/27/20 17:20 Dose: 20 mg Admin: 02/27/20 08:16 Dose: 20 mg Admin: 02/26/20 17:31 Dose: 20 mg Admin: 02/26/20 08:21 Dose: 20 mg Admin: 02/25/20 17:35 Dose: 20 mg Admin: 02/25/20 07:56 Dose: 20 mg Admin: 02/24/20 17:34 Dose: 20 mg Admin: 02/24/20 08:25 Dose: 20 mg Admin: 02/23/20 17:35 Dose: 20 mg Admin: 02/23/20 08:29 Dose: 20 mg Admin: 02/22/20 17:44 Dose: 20 mg Admin: 02/22/20 08:17 Dose: 20 mg Admin: 02/21/20 17:39 Dose: 20 mg Admin: 02/21/20 07:58 Dose: 20 mg Admin: 02/20/20 17:38 Dose: 20 mg Admin: 02/20/20 08:12 Dose: 20 mg Admin: 02/19/20 17:00 Dose: 20 mg Admin: 02/19/20 08:17 Dose: 20 mg Admin: 02/18/20 17:55 Dose: 20 mg Admin: 02/18/20 08:15 Dose: 20 mg Admin: 02/17/20 17:31 Dose: 20 mg Admin: 02/17/20 08:29 Dose: 20 mg Admin: 02/16/20 17:17 Dose: 20 mg Admin: 02/16/20 08:23 Dose: 20 mg Admin: 02/15/20 17:12 Dose: 20 mg Admin: 02/15/20 07:01 Dose: 20 mg Admin: 02/14/20 17:33 Dose: 20 mg Admin: 02/14/20 08:27 Dose: 20 mg Admin: 02/13/20 17:03 Dose: 20 mg Admin: 02/13/20 07:49 Dose: 20 mg Admin: 02/12/20 17:03 Dose: 20 mg Admin: 02/12/20 07:08 Dose: 20 mg Admin: 02/11/20 17:06 Dose: 20 mg Admin: 02/11/20 07:16 Dose: 20 mg Admin: 02/10/20 17:54 Dose: 20 mg Admin: 02/10/20 08:33 Dose: 20 mg Admin: 02/09/20 17:42 Dose: 20 mg Admin: 02/09/20 08:41 Dose: 20 mg Admin: 02/08/20 17:02 Dose: 20 mg Admin: 02/08/20 07:13 Dose: 20 mg Admin: 02/07/20 17:41 Dose: 20 mg Admin: 02/07/20 08:27 Dose: 20 mg Admin: 02/06/20 17:53 Dose: 20 mg Admin: 02/06/20 08:11 Dose: 20 mg Admin: 02/05/20 17:50 Dose: 20 mg Admin: 02/05/20 08:16 Dose: 20 mg Admin: 02/04/20 17:47 Dose: 20 mg Admin: 02/04/20 09:04 Dose: 20 mg Admin: 02/03/20 17:52 Dose: 20 mg Admin: 02/03/20 07:28 Dose: 20 mg Admin: 02/02/20 17:15 Dose: 20 mg Admin: 02/02/20 07:06 Dose: 20 mg Admin: 02/01/20 17:03 Dose: 20 mg Admin: 02/01/20 07:08 Dose: 20 mg Admin: 01/31/20 17:01 Dose: 20 mg Admin: 01/31/20 07:06 Dose: 20 mg Admin: 01/30/20 17:39 Dose: 20 mg Admin: 01/30/20 08:07 Dose: 20 mg Admin: 01/29/20 17:23 Dose: 20 mg Admin: 01/29/20 07:59 Dose: 20 mg Admin: 01/28/20 17:37 Dose: 20 mg Admin: 01/28/20 07:55 Dose: 20 mg Admin: 01/27/20 17:21 Dose: 20 mg Admin: 01/27/20 07:05 Dose: 20 mg Admin: 01/26/20 17:29 Dose: 20 mg Admin: 01/26/20 07:31 Dose: 20 mg Admin: 01/25/20 17:08 Dose: 20 mg Admin: 01/25/20 07:11 Dose: 20 mg Admin: 01/24/20 17:28 Dose: 20 mg Admin: 01/24/20 07:55 Dose: 20 mg Admin: 01/23/20 17:04 Dose: 20 mg Admin: 01/23/20 07:09 Dose: 20 mg Admin: 01/22/20 17:09 Dose: 20 mg Admin: 01/22/20 07:15 Dose: 20 mg Admin: 01/21/20 17:32 Dose: 20 mg Admin: 01/21/20 07:58 Dose: 20 mg Admin: 01/20/20 17:33 Dose: 20 mg Admin: 01/20/20 07:59 Dose: 20 mg Admin: 01/19/20 17:38 Dose: 20 mg Admin: 01/19/20 07:55 Dose: 20 mg Admin: 01/18/20 17:10 Dose: 20 mg Admin: 01/18/20 08:05 Dose: 20 mg Admin: 01/17/20 17:03 Dose: 20 mg Admin: 01/17/20 08:07 Dose: 20 mg Admin: 01/16/20 17:24 Dose: 20 mg Admin: 01/16/20 08:19 Dose: 20 mg Admin: 01/15/20 17:47 Dose: 20 mg Admin: 01/15/20 08:18 Dose: 20 mg Admin: 01/14/20 17:47 Dose: 20 mg Admin: 01/14/20 08:08 Dose: 20 mg Admin: 01/13/20 19:13 Dose: 20 mg Admin: 01/13/20 08:20 Dose: 20 mg Admin: 01/12/20 17:43 Dose: 20 mg Admin: 01/12/20 08:15 Dose: 20 mg Admin: 01/11/20 17:29 Dose: 20 mg Admin: 01/11/20 07:51 Dose: 20 mg Admin: 01/10/20 17:47 Dose: 20 mg Admin: 01/10/20 08:31 Dose: 20 mg Admin: 01/09/20 17:38 Dose: 20 mg Admin: 01/09/20 08:08 Dose: 20 mg Admin: 01/08/20 17:31 Dose: 20 mg Admin: 01/08/20 08:11 Dose: 20 mg Admin: 01/07/20 17:50 Dose: 20 mg Admin: 01/07/20 08:12 Dose: 20 mg Admin: 01/06/20 17:11 Dose: 20 mg Admin: 01/06/20 08:23 Dose: 20 mg Admin: 01/05/20 17:43 Dose: 20 mg Admin: 01/05/20 07:59 Dose: 20 mg Admin: 01/04/20 17:40 Dose: 20 mg Admin: 01/04/20 07:53 Dose: 20 mg Admin: 01/03/20 18:22 Dose: 20 mg Admin: 01/03/20 08:13 Dose: 20 mg Admin: 01/02/20 17:47 Dose: 20 mg Admin: 01/02/20 07:58 Dose: 20 mg Admin: 01/01/20 17:08 Dose: 20 mg Admin: 01/01/20 07:12 Dose: 20 mg Admin: 12/31/19 17:46 Dose: 20 mg Admin: 12/31/19 08:06 Dose: 20 mg Admin: 12/30/19 17:54 Dose: 20 mg Admin: 12/30/19 08:01 Dose: 20 mg Admin: 12/29/19 17:09 Dose: 20 mg Admin: 12/29/19 08:17 Dose: 20 mg Admin: 12/28/19 17:42 Dose: 20 mg Admin: 12/28/19 07:59 Dose: 20 mg Admin: 12/27/19 17:44 Dose: 20 mg Admin: 12/27/19 07:55 Dose: 20 mg Admin: 12/26/19 17:11 Dose: 20 mg Admin: 12/26/19 07:56 Dose: 20 mg Admin: 12/25/19 17:36 Dose: 20 mg Admin: 12/25/19 07:52 Dose: 20 mg Admin: 12/24/19 17:42 Dose: 20 mg Admin: 12/24/19 07:51 Dose: 20 mg Admin: 12/23/19 17:48 Dose: 20 mg Admin: 12/23/19 08:05 Dose: 20 mg Admin: 12/22/19 17:08 Dose: 20 mg Admin: 12/22/19 07:03 Dose: 20 mg Admin: 12/21/19 18:20 Dose: 20 mg Guaifenesin/Dextromethorphan (Robitussin Dm) 10 ml PO Q4H PRN PRN Reason: Cough Last Admin: 02/14/20 16:48 Dose: 10 ml Admin: 02/14/20 01:55 Dose: 10 ml Admin: 02/11/20 08:06 Dose: 10 ml Admin: 02/10/20 08:36 Dose: 10 ml Admin: 02/07/20 23:57 Dose: 10 ml Admin: 01/21/20 08:03 Dose: 10 ml Admin: 01/21/20 03:06 Dose: 10 ml Admin: 12/18/19 08:11 Dose: 10 ml Admin: 12/07/19 19:42 Dose: 10 ml Admin: 12/06/19 08:13 Dose: 10 ml Admin: 12/03/19 19:50 Dose: 10 ml Admin: 12/02/19 19:47 Dose: 10 ml Admin: 12/01/19 18:06 Dose: 10 ml Admin: 11/30/19 08:10 Dose: 10 ml Admin: 11/28/19 19:25 Dose: 10 ml Admin: 11/28/19 08:17 Dose: 10 ml Admin: 11/27/19 00:05 Dose: 10 ml Admin: 11/25/19 19:09 Dose: 10 ml Admin: 11/25/19 05:14 Dose: 10 ml Admin: 11/22/19 19:26 Dose: 10 ml Admin: 11/22/19 08:33 Dose: 10 ml Admin: 11/21/19 19:27 Dose: 10 ml Admin: 11/20/19 19:16 Dose: 10 ml Admin: 11/19/19 19:31 Dose: 10 ml Admin: 11/18/19 19:32 Dose: 10 ml Admin: 11/18/19 07:49 Dose: 10 ml Admin: 11/17/19 19:12 Dose: 10 ml Admin: 11/16/19 19:38 Dose: 10 ml Admin: 11/16/19 08:04 Dose: 10 ml Admin: 11/15/19 19:39 Dose: 10 ml Admin: 11/15/19 07:35 Dose: 10 ml Ibuprofen (Motrin) 600 mg PO Q6H PRN PRN Reason: Breakthrough Pain Last Admin: 04/13/20 07:27 Dose: 600 mg Admin: 04/12/20 17:20 Dose: 600 mg Admin: 04/12/20 07:48 Dose: 600 mg Admin: 04/11/20 15:08 Dose: 600 mg Admin: 04/11/20 08:10 Dose: 600 mg Admin: 04/11/20 02:30 Dose: 600 mg Admin: 04/06/20 17:13 Dose: 600 mg Admin: 04/05/20 15:06 Dose: 600 mg Admin: 04/05/20 07:45 Dose: 600 mg Admin: 04/03/20 11:13 Dose: 600 mg Admin: 04/02/20 15:12 Dose: 600 mg Admin: 04/02/20 07:51 Dose: 600 mg Admin: 04/01/20 07:55 Dose: 600 mg Admin: 03/29/20 07:21 Dose: 600 mg Admin: 03/28/20 07:32 Dose: 600 mg Admin: 03/26/20 14:56 Dose: 600 mg Admin: 03/26/20 07:39 Dose: 600 mg Admin: 03/25/20 07:25 Dose: 600 mg Admin: 03/24/20 15:40 Dose: 600 mg Admin: 03/24/20 08:04 Dose: 600 mg Admin: 03/22/20 19:29 Dose: 600 mg Admin: 03/21/20 08:07 Dose: 600 mg Admin: 03/20/20 17:11 Dose: 600 mg Admin: 03/20/20 07:43 Dose: 600 mg Admin: 03/19/20 17:14 Dose: 600 mg Admin: 03/19/20 08:06 Dose: 600 mg Admin: 03/16/20 08:37 Dose: 600 mg Admin: 03/14/20 04:27 Dose: 600 mg Admin: 03/11/20 17:06 Dose: 600 mg Admin: 03/04/20 07:32 Dose: 600 mg Admin: 03/01/20 19:29 Dose: 600 mg Admin: 02/26/20 19:53 Dose: 600 mg Admin: 02/25/20 16:09 Dose: 600 mg Admin: 02/24/20 19:26 Dose: 600 mg Admin: 02/24/20 08:26 Dose: 600 mg Admin: 02/22/20 08:18 Dose: 600 mg Admin: 02/21/20 08:02 Dose: 600 mg Admin: 02/20/20 08:14 Dose: 600 mg Admin: 02/19/20 08:25 Dose: 600 mg Admin: 02/18/20 19:36 Dose: 600 mg Admin: 02/18/20 08:16 Dose: 600 mg Admin: 02/17/20 08:32 Dose: 600 mg Admin: 02/16/20 19:37 Dose: 600 mg Admin: 02/16/20 08:24 Dose: 600 mg Admin: 02/15/20 08:13 Dose: 600 mg Admin: 02/14/20 08:30 Dose: 600 mg Admin: 02/13/20 07:48 Dose: 600 mg Admin: 02/12/20 08:27 Dose: 600 mg Admin: 02/11/20 08:05 Dose: 600 mg Admin: 02/10/20 17:54 Dose: 600 mg Admin: 02/10/20 08:35 Dose: 600 mg Admin: 02/08/20 08:17 Dose: 600 mg Admin: 02/07/20 17:41 Dose: 600 mg Admin: 02/07/20 08:29 Dose: 600 mg Admin: 02/06/20 19:43 Dose: 600 mg Admin: 02/05/20 08:21 Dose: 600 mg Admin: 02/04/20 11:36 Dose: 600 mg Admin: 02/03/20 19:38 Dose: 600 mg Admin: 02/03/20 07:30 Dose: 600 mg Admin: 02/02/20 15:26 Dose: 600 mg Admin: 02/02/20 07:05 Dose: 600 mg Admin: 02/01/20 08:01 Dose: 600 mg Admin: 01/31/20 15:44 Dose: 600 mg Admin: 01/31/20 07:05 Dose: 600 mg Admin: 01/30/20 17:40 Dose: 600 mg Admin: 01/30/20 08:09 Dose: 600 mg Admin: 01/29/20 19:40 Dose: 600 mg Admin: 01/29/20 08:02 Dose: 600 mg Admin: 01/28/20 17:37 Dose: 600 mg Admin: 01/28/20 07:55 Dose: 600 mg Admin: 01/27/20 15:48 Dose: 600 mg Admin: 01/27/20 08:16 Dose: 600 mg Admin: 01/26/20 05:09 Dose: 600 mg Admin: 01/25/20 15:28 Dose: 600 mg Admin: 01/25/20 07:13 Dose: 600 mg Admin: 01/24/20 17:28 Dose: 600 mg Admin: 01/24/20 07:58 Dose: 600 mg Admin: 01/23/20 15:05 Dose: 600 mg Admin: 01/23/20 07:11 Dose: 600 mg Admin: 01/22/20 07:16 Dose: 600 mg Admin: 01/21/20 17:33 Dose: 600 mg Admin: 01/21/20 08:02 Dose: 600 mg Admin: 01/21/20 03:05 Dose: 600 mg Admin: 01/20/20 17:34 Dose: 600 mg Admin: 01/20/20 11:14 Dose: 600 mg Admin: 01/19/20 17:39 Dose: 600 mg Admin: 01/19/20 07:57 Dose: 600 mg Admin: 01/18/20 08:06 Dose: 600 mg Admin: 01/17/20 17:04 Dose: 600 mg Admin: 01/17/20 08:09 Dose: 600 mg Admin: 01/16/20 20:09 Dose: 600 mg Admin: 01/16/20 08:27 Dose: 600 mg Admin: 01/15/20 19:53 Dose: 600 mg Admin: 01/14/20 16:02 Dose: 600 mg Admin: 01/14/20 08:11 Dose: 600 mg Admin: 01/13/20 17:40 Dose: 600 mg Admin: 01/13/20 08:22 Dose: 600 mg Admin: 01/12/20 08:54 Dose: 600 mg Admin: 01/11/20 19:42 Dose: 600 mg Admin: 01/10/20 19:36 Dose: 600 mg Admin: 01/10/20 08:33 Dose: 600 mg Admin: 01/09/20 17:37 Dose: 600 mg Admin: 01/09/20 08:10 Dose: 600 mg Admin: 01/08/20 08:14 Dose: 600 mg Admin: 01/08/20 02:02 Dose: 600 mg Admin: 01/07/20 19:19 Dose: 600 mg Admin: 01/07/20 08:15 Dose: 600 mg Admin: 01/06/20 19:47 Dose: 600 mg Admin: 01/05/20 17:52 Dose: 600 mg Admin: 01/04/20 23:09 Dose: 600 mg Admin: 01/04/20 07:59 Dose: 600 mg Admin: 01/03/20 08:57 Dose: 600 mg Admin: 01/02/20 17:48 Dose: 600 mg Admin: 01/02/20 08:02 Dose: 600 mg Admin: 01/01/20 19:52 Dose: 600 mg Admin: 01/01/20 07:52 Dose: 600 mg Admin: 12/31/19 17:46 Dose: 600 mg Admin: 12/30/19 19:48 Dose: 600 mg Admin: 12/29/19 19:47 Dose: 600 mg Admin: 12/29/19 11:12 Dose: 600 mg Admin: 12/29/19 03:53 Dose: 600 mg Admin: 12/28/19 17:44 Dose: 600 mg Admin: 12/28/19 08:03 Dose: 600 mg Admin: 12/27/19 17:45 Dose: 600 mg Admin: 12/27/19 08:00 Dose: 600 mg Admin: 12/26/19 19:24 Dose: 600 mg Admin: 12/25/19 19:18 Dose: 600 mg Admin: 12/25/19 08:00 Dose: 600 mg Admin: 12/24/19 17:43 Dose: 600 mg Admin: 12/24/19 01:23 Dose: 600 mg Admin: 12/22/19 19:13 Dose: 600 mg Admin: 12/22/19 11:49 Dose: 600 mg Admin: 12/22/19 05:42 Dose: 600 mg Admin: 12/21/19 19:46 Dose: 600 mg Admin: 12/21/19 07:26 Dose: 600 mg Admin: 12/20/19 19:29 Dose: 600 mg Admin: 12/20/19 07:14 Dose: 600 mg Admin: 12/19/19 17:33 Dose: 600 mg Admin: 12/19/19 07:44 Dose: 600 mg Admin: 12/18/19 17:42 Dose: 600 mg Admin: 12/18/19 08:09 Dose: 600 mg Admin: 12/17/19 19:35 Dose: 600 mg Admin: 12/17/19 07:55 Dose: 600 mg Admin: 12/16/19 19:14 Dose: 600 mg Admin: 12/16/19 07:30 Dose: 600 mg Admin: 12/15/19 19:24 Dose: 600 mg Admin: 12/15/19 08:01 Dose: 600 mg Admin: 12/14/19 19:21 Dose: 600 mg Admin: 12/13/19 19:23 Dose: 600 mg Admin: 12/12/19 19:14 Dose: 600 mg Admin: 12/12/19 07:10 Dose: 600 mg Admin: 12/11/19 19:08 Dose: 600 mg Admin: 12/11/19 07:11 Dose: 600 mg Admin: 12/10/19 19:23 Dose: 600 mg Admin: 12/10/19 07:53 Dose: 600 mg Admin: 12/08/19 19:44 Dose: 600 mg Admin: 12/08/19 04:05 Dose: 600 mg Admin: 12/07/19 17:50 Dose: 600 mg Admin: 12/06/19 18:01 Dose: 600 mg Admin: 12/05/19 08:52 Dose: 600 mg Admin: 12/04/19 19:01 Dose: 600 mg Admin: 12/03/19 19:51 Dose: 600 mg Admin: 12/02/19 19:47 Dose: 600 mg Admin: 12/01/19 17:16 Dose: 600 mg Admin: 12/01/19 07:23 Dose: 600 mg Admin: 11/30/19 23:29 Dose: 600 mg Admin: 11/30/19 11:18 Dose: 600 mg Admin: 11/29/19 19:27 Dose: 600 mg Admin: 11/28/19 05:28 Dose: 600 mg Admin: 11/27/19 17:52 Dose: 600 mg Admin: 11/27/19 01:30 Dose: 600 mg Admin: 11/26/19 16:07 Dose: 600 mg Admin: 11/25/19 16:17 Dose: 600 mg Admin: 11/25/19 06:10 Dose: 600 mg Admin: 11/24/19 19:35 Dose: 600 mg Admin: 11/23/19 19:52 Dose: 600 mg Admin: 11/22/19 19:27 Dose: 600 mg Admin: 11/22/19 07:49 Dose: 600 mg Admin: 11/21/19 23:48 Dose: 600 mg Admin: 11/21/19 11:11 Dose: 600 mg Admin: 11/21/19 02:59 Dose: 600 mg Admin: 11/20/19 08:44 Dose: 600 mg Admin: 11/19/19 17:38 Dose: 600 mg Admin: 11/18/19 19:41 Dose: 600 mg Admin: 11/18/19 07:49 Dose: 600 mg Admin: 11/17/19 17:29 Dose: 600 mg Admin: 11/15/19 19:38 Dose: 600 mg Admin: 11/15/19 07:37 Dose: 600 mg Admin: 11/14/19 07:53 Dose: 600 mg Admin: 11/13/19 17:16 Dose: 600 mg Admin: 11/13/19 00:58 Dose: 600 mg Admin: 11/12/19 16:34 Dose: 600 mg Admin: 11/12/19 08:02 Dose: 600 mg Admin: 11/12/19 02:20 Dose: 600 mg Admin: 11/11/19 17:37 Dose: 600 mg Admin: 11/11/19 07:49 Dose: 600 mg Admin: 11/10/19 19:35 Dose: 600 mg Admin: 11/10/19 03:56 Dose: 600 mg Admin: 11/09/19 19:07 Dose: 600 mg Admin: 11/09/19 07:05 Dose: 600 mg Admin: 11/08/19 19:22 Dose: 600 mg Admin: 11/08/19 07:54 Dose: 600 mg Admin: 11/07/19 19:41 Dose: 600 mg Admin: 11/07/19 08:48 Dose: 600 mg Admin: 11/06/19 19:04 Dose: 600 mg Admin: 11/05/19 19:30 Dose: 600 mg Admin: 11/05/19 01:07 Dose: 600 mg Admin: 11/04/19 01:38 Dose: 600 mg Admin: 11/03/19 17:04 Dose: 600 mg Admin: 11/03/19 07:56 Dose: 600 mg Admin: 11/03/19 00:16 Dose: 600 mg Admin: 11/02/19 17:36 Dose: 600 mg Admin: 11/02/19 02:58 Dose: 600 mg Admin: 11/01/19 17:10 Dose: 600 mg Admin: 11/01/19 08:21 Dose: 600 mg Admin: 10/31/19 17:02 Dose: 600 mg Admin: 10/31/19 07:22 Dose: 600 mg Admin: 10/30/19 17:16 Dose: 600 mg Admin: 10/30/19 07:19 Dose: 600 mg Admin: 10/29/19 17:09 Dose: 600 mg Admin: 10/29/19 07:23 Dose: 600 mg Admin: 10/28/19 19:42 Dose: 600 mg Admin: 10/28/19 08:08 Dose: 600 mg Admin: 10/27/19 19:42 Dose: 600 mg Admin: 10/26/19 19:23 Dose: 600 mg Admin: 10/26/19 02:15 Dose: 600 mg Admin: 10/25/19 17:13 Dose: 600 mg Admin: 10/25/19 07:47 Dose: 600 mg Admin: 10/24/19 18:30 Dose: 600 mg Admin: 10/23/19 20:30 Dose: 600 mg Admin: 10/23/19 14:16 Dose: 600 mg Admin: 10/23/19 04:12 Dose: 600 mg Admin: 10/22/19 19:12 Dose: 600 mg Admin: 10/22/19 01:32 Dose: 600 mg Admin: 10/21/19 17:10 Dose: 600 mg Admin: 10/21/19 07:55 Dose: 600 mg Admin: 10/20/19 23:40 Dose: 600 mg Admin: 10/20/19 06:02 Dose: 600 mg Admin: 10/19/19 19:29 Dose: 600 mg Admin: 10/19/19 11:12 Dose: 600 mg Admin: 10/18/19 17:30 Dose: 600 mg Admin: 10/17/19 19:47 Dose: 600 mg Admin: 10/17/19 00:25 Dose: 600 mg Admin: 10/15/19 18:03 Dose: 600 mg Admin: 10/15/19 08:12 Dose: 600 mg Admin: 10/14/19 18:00 Dose: 600 mg Admin: 10/14/19 08:19 Dose: 600 mg Admin: 10/14/19 00:10 Dose: 600 mg Admin: 10/13/19 17:12 Dose: 600 mg Admin: 10/13/19 07:30 Dose: 600 mg Admin: 10/12/19 19:30 Dose: 600 mg Admin: 10/12/19 07:31 Dose: 600 mg Admin: 10/11/19 19:52 Dose: 600 mg Admin: 10/11/19 11:20 Dose: 600 mg Admin: 10/11/19 04:24 Dose: 600 mg Admin: 10/10/19 19:56 Dose: 600 mg Admin: 10/09/19 17:11 Dose: 600 mg Admin: 10/09/19 07:16 Dose: 600 mg Admin: 10/08/19 19:08 Dose: 600 mg Admin: 10/08/19 08:09 Dose: 600 mg Admin: 10/07/19 19:12 Dose: 600 mg Admin: 10/07/19 04:52 Dose: 600 mg Admin: 10/06/19 21:50 Dose: 600 mg Admin: 10/06/19 15:00 Dose: 600 mg Admin: 10/06/19 08:11 Dose: 600 mg Admin: 10/05/19 17:11 Dose: 600 mg Admin: 10/05/19 07:49 Dose: 600 mg Admin: 10/04/19 19:39 Dose: 600 mg Admin: 10/04/19 08:23 Dose: 600 mg Admin: 10/03/19 19:34 Dose: 600 mg Admin: 10/02/19 19:39 Dose: 600 mg Admin: 10/02/19 08:15 Dose: 600 mg Admin: 10/01/19 19:49 Dose: 600 mg Admin: 10/01/19 08:13 Dose: 600 mg Admin: 09/30/19 17:08 Dose: 600 mg Admin: 09/29/19 17:04 Dose: 600 mg Admin: 09/29/19 07:33 Dose: 600 mg Admin: 09/28/19 19:37 Dose: 600 mg Admin: 09/28/19 08:16 Dose: 600 mg Admin: 09/27/19 17:10 Dose: 600 mg Admin: 09/27/19 07:36 Dose: 600 mg Admin: 09/26/19 19:17 Dose: 600 mg Admin: 09/24/19 19:23 Dose: 600 mg Admin: 09/20/19 09:03 Dose: 600 mg Admin: 09/19/19 17:11 Dose: 600 mg Admin: 09/19/19 07:16 Dose: 600 mg Admin: 09/18/19 17:04 Dose: 600 mg Admin: 09/18/19 07:27 Dose: 600 mg Admin: 09/17/19 19:37 Dose: 600 mg Admin: 09/17/19 11:22 Dose: 600 mg Admin: 09/17/19 03:06 Dose: 600 mg Admin: 09/16/19 19:43 Dose: 600 mg Admin: 09/16/19 08:18 Dose: 600 mg Admin: 09/15/19 19:59 Dose: 600 mg Admin: 09/14/19 19:52 Dose: 600 mg Admin: 09/13/19 17:04 Dose: 600 mg Admin: 09/13/19 07:45 Dose: 600 mg Admin: 09/12/19 19:18 Dose: 600 mg Admin: 09/10/19 17:38 Dose: 600 mg Admin: 09/10/19 08:12 Dose: 600 mg Admin: 09/09/19 19:21 Dose: 600 mg Admin: 09/09/19 08:20 Dose: 600 mg Admin: 09/08/19 17:08 Dose: 600 mg Admin: 09/08/19 07:19 Dose: 600 mg Admin: 09/07/19 17:12 Dose: 600 mg Admin: 09/07/19 07:42 Dose: 600 mg Admin: 09/06/19 08:08 Dose: 600 mg Admin: 09/05/19 19:45 Dose: 600 mg Admin: 09/03/19 19:29 Dose: 600 mg Admin: 09/02/19 19:18 Dose: 600 mg Admin: 09/02/19 03:50 Dose: 600 mg Admin: 09/01/19 07:31 Dose: 600 mg Admin: 09/01/19 01:28 Dose: 600 mg Admin: 08/31/19 07:50 Dose: 600 mg Admin: 08/30/19 17:03 Dose: 600 mg Admin: 08/30/19 07:26 Dose: 600 mg Admin: 08/29/19 17:07 Dose: 600 mg Admin: 08/29/19 07:37 Dose: 600 mg Admin: 08/28/19 17:51 Dose: 600 mg Admin: 08/27/19 16:20 Dose: 600 mg Admin: 08/26/19 19:21 Dose: 600 mg Admin: 08/23/19 07:32 Dose: 600 mg Admin: 08/21/19 07:55 Dose: 600 mg Admin: 08/19/19 17:04 Dose: 600 mg Admin: 08/19/19 07:13 Dose: 600 mg Admin: 08/18/19 17:11 Dose: 600 mg Admin: 08/18/19 07:30 Dose: 600 mg Admin: 08/18/19 00:48 Dose: 600 mg Admin: 08/17/19 07:50 Dose: 600 mg Admin: 08/16/19 17:11 Dose: 600 mg Admin: 08/16/19 07:33 Dose: 600 mg Admin: 08/13/19 19:23 Dose: 600 mg Admin: 08/12/19 19:10 Dose: 600 mg Admin: 08/11/19 19:18 Dose: 600 mg Admin: 08/09/19 17:21 Dose: 600 mg Admin: 08/09/19 07:35 Dose: 600 mg Admin: 08/08/19 17:07 Dose: 600 mg Admin: 08/08/19 07:13 Dose: 600 mg Admin: 08/07/19 17:15 Dose: 600 mg Admin: 08/07/19 07:31 Dose: 600 mg Admin: 08/06/19 17:09 Dose: 600 mg Admin: 08/06/19 07:29 Dose: 600 mg Admin: 08/04/19 17:12 Dose: 600 mg Admin: 07/29/19 17:14 Dose: 600 mg Admin: 07/29/19 07:17 Dose: 600 mg Admin: 07/28/19 17:13 Dose: 600 mg Admin: 07/28/19 07:33 Dose: 600 mg Admin: 07/27/19 17:08 Dose: 600 mg Admin: 07/27/19 07:42 Dose: 600 mg Admin: 07/23/19 18:00 Dose: 600 mg Admin: 07/22/19 18:08 Dose: 600 mg Admin: 07/21/19 09:55 Dose: 600 mg Admin: 07/20/19 15:12 Dose: 600 mg Admin: 07/19/19 17:15 Dose: 600 mg Admin: 07/19/19 07:30 Dose: 600 mg Admin: 07/18/19 17:12 Dose: 600 mg Admin: 07/18/19 07:12 Dose: 600 mg Admin: 07/17/19 07:31 Dose: 600 mg Admin: 07/16/19 17:18 Dose: 600 mg Admin: 07/16/19 07:32 Dose: 600 mg Admin: 07/13/19 08:02 Dose: 600 mg Admin: 07/12/19 17:09 Dose: 600 mg Admin: 07/12/19 07:54 Dose: 600 mg Admin: 07/09/19 22:49 Dose: 600 mg Admin: 07/09/19 07:23 Dose: 600 mg Admin: 07/08/19 13:04 Dose: 600 mg Admin: 07/01/19 08:30 Dose: 600 mg Admin: 06/29/19 17:37 Dose: 600 mg Admin: 06/27/19 07:54 Dose: 600 mg Admin: 06/26/19 08:03 Dose: 600 mg Admin: 06/21/19 17:20 Dose: 600 mg Admin: 06/21/19 07:23 Dose: 600 mg Admin: 06/20/19 17:08 Dose: 600 mg Admin: 06/20/19 07:16 Dose: 600 mg Admin: 06/19/19 07:22 Dose: 600 mg Admin: 06/18/19 11:24 Dose: 600 mg Admin: 06/17/19 19:17 Dose: 600 mg Admin: 06/17/19 08:36 Dose: 600 mg Admin: 06/15/19 17:53 Dose: 600 mg Admin: 06/15/19 07:43 Dose: 600 mg Admin: 06/09/19 08:04 Dose: 600 mg Admin: 06/08/19 07:12 Dose: 600 mg Admin: 06/07/19 19:14 Dose: 600 mg Admin: 06/07/19 07:27 Dose: 600 mg Admin: 06/06/19 07:25 Dose: 600 mg Admin: 06/05/19 13:03 Dose: 600 mg Admin: 06/04/19 08:12 Dose: 600 mg Admin: 06/02/19 07:17 Dose: 600 mg Admin: 05/31/19 07:43 Dose: 600 mg Admin: 05/30/19 18:06 Dose: 600 mg Admin: 05/27/19 17:55 Dose: 600 mg Magnesium Hydroxide (Milk Of Magnesia) 30 ml PO DAILY PRN PRN Reason: Constipation Last Admin: 12/18/19 11:36 Dose: 30 ml Admin: 11/28/19 17:35 Dose: 30 ml Methyl Salicylate (Icy Hot Cream) 0 gm TOP QID PRN PRN Reason: Pain (mild 1-3) Last Admin: 04/12/20 19:23 Dose: 1 applic Admin: 04/11/20 19:37 Dose: 1 applic Admin: 04/10/20 19:40 Dose: 1 applic Admin: 04/09/20 20:31 Dose: 1 applic Admin: 04/08/20 19:38 Dose: 1 applic Admin: 04/07/20 19:33 Dose: 1 applic Admin: 04/06/20 19:46 Dose: 1 applic Admin: 04/05/20 19:12 Dose: 1 applic Admin: 04/04/20 19:17 Dose: 1 applic Admin: 04/02/20 18:57 Dose: 1 applic Admin: 04/01/20 19:14 Dose: 1 applic Admin: 03/31/20 19:17 Dose: 1 applic Admin: 03/29/20 19:22 Dose: 1 applic Admin: 03/26/20 19:49 Dose: 1 applic Admin: 03/22/20 19:26 Dose: 1 applic Admin: 03/21/20 19:25 Dose: 1 applic Admin: 03/14/20 19:31 Dose: 1 applic Admin: 03/07/20 19:49 Dose: 1 applic Admin: 03/01/20 19:27 Dose: 1 applic Admin: 02/29/20 19:22 Dose: 1 applic Admin: 02/28/20 19:56 Dose: 1 applic Admin: 02/27/20 19:29 Dose: 1 applic Admin: 02/26/20 19:54 Dose: 1 applic Admin: 02/25/20 19:36 Dose: 1 applic Admin: 02/20/20 19:36 Dose: 1 applic Admin: 02/19/20 19:31 Dose: 1 applic Admin: 02/18/20 19:37 Dose: 1 applic Admin: 02/16/20 19:38 Dose: 1 applic Admin: 02/09/20 19:49 Dose: 1 applic Admin: 02/08/20 19:40 Dose: 1 applic Admin: 02/07/20 19:39 Dose: 1 applic Admin: 02/03/20 19:36 Dose: 1 applic Admin: 02/02/20 19:25 Dose: 1 applic Admin: 02/01/20 19:39 Dose: 1 applic Admin: 01/31/20 19:35 Dose: 1 applic Admin: 01/30/20 19:38 Dose: 1 applic Admin: 01/29/20 19:39 Dose: 1 applic Admin: 01/28/20 19:54 Dose: 1 applic Admin: 01/26/20 19:34 Dose: 1 applic Admin: 01/24/20 20:04 Dose: 1 applic Admin: 01/20/20 19:29 Dose: 1 applic Admin: 01/11/20 19:41 Dose: 1 applic Admin: 01/10/20 19:35 Dose: 1 applic Admin: 01/06/20 19:46 Dose: 1 applic Admin: 01/05/20 19:59 Dose: 1 applic Admin: 01/02/20 19:24 Dose: 1 applic Admin: 01/01/20 19:52 Dose: 1 applic Admin: 12/31/19 19:51 Dose: 1 applic Admin: 12/27/19 19:23 Dose: 1 applic Admin: 12/22/19 19:14 Dose: 1 applic Admin: 12/22/19 05:42 Dose: 1 applic Admin: 12/21/19 19:45 Dose: 1 applic Admin: 12/20/19 19:29 Dose: 1 applic Admin: 12/15/19 19:23 Dose: 1 applic Admin: 12/15/19 00:49 Dose: 1 applic Admin: 12/12/19 19:16 Dose: 1 applic Admin: 12/11/19 19:15 Dose: 1 applic Admin: 12/10/19 19:23 Dose: 1 applic Admin: 12/07/19 19:31 Dose: 1 applic Admin: 12/03/19 19:49 Dose: 1 applic Admin: 11/28/19 19:22 Dose: 1 applic Admin: 11/27/19 19:37 Dose: 1 applic Admin: 11/24/19 19:34 Dose: 1 applic Admin: 11/23/19 19:53 Dose: 1 applic Admin: 11/19/19 19:30 Dose: 1 applic Admin: 11/18/19 19:32 Dose: 1 applic Admin: 11/15/19 19:40 Dose: 1 applic Admin: 11/11/19 19:25 Dose: 1 applic Admin: 11/10/19 19:34 Dose: 1 applic Admin: 11/08/19 04:16 Dose: 1 applic Admin: 11/07/19 19:42 Dose: 1 applic Admin: 11/06/19 19:23 Dose: 1 applic Admin: 11/05/19 19:32 Dose: 1 applic Admin: 11/02/19 19:20 Dose: 1 applic Admin: 10/31/19 19:47 Dose: 1 applic Admin: 10/30/19 19:17 Dose: 1 applic Admin: 10/27/19 19:41 Dose: 1 applic Admin: 10/26/19 19:25 Dose: 1 applic Admin: 10/24/19 19:57 Dose: 1 applic Admin: 10/19/19 19:31 Dose: 1 applic Admin: 10/18/19 19:27 Dose: 1 applic Admin: 10/17/19 19:42 Dose: 1 applic Admin: 10/17/19 01:45 Dose: 1 applic Admin: 10/16/19 19:39 Dose: 1 applic Admin: 10/14/19 19:19 Dose: 1 applic Admin: 10/12/19 19:31 Dose: 1 applic Admin: 10/11/19 04:25 Dose: 1 applic Admin: 11/14/19 04:52 Dose: 1 applic Admin: 05/29/19 02:15 Dose: 1 applic Niacin (Niacin) 500 mg PO BID MIESHA Last Admin: 04/13/20 07:26 Dose: 500 mg Admin: 04/12/20 17:20 Dose: 500 mg Admin: 04/12/20 07:47 Dose: 500 mg Admin: 04/11/20 17:09 Dose: 500 mg Admin: 04/11/20 08:12 Dose: 500 mg Admin: 04/10/20 17:02 Dose: 500 mg Admin: 04/10/20 07:47 Dose: 500 mg Admin: 04/09/20 17:25 Dose: 500 mg Admin: 04/09/20 07:24 Dose: 500 mg Admin: 04/08/20 17:52 Dose: 500 mg Admin: 04/08/20 07:24 Dose: 500 mg Admin: 04/07/20 17:16 Dose: 500 mg Admin: 04/07/20 08:18 Dose: 500 mg Admin: 04/06/20 17:13 Dose: 500 mg Admin: 04/06/20 08:09 Dose: 500 mg Admin: 04/05/20 17:17 Dose: 500 mg Admin: 04/05/20 07:48 Dose: 500 mg Admin: 04/04/20 17:18 Dose: 500 mg Admin: 04/04/20 08:34 Dose: 500 mg Admin: 04/03/20 17:03 Dose: 500 mg Admin: 04/03/20 07:46 Dose: 500 mg Admin: 04/02/20 17:05 Dose: 500 mg Admin: 04/02/20 07:50 Dose: 500 mg Admin: 04/01/20 17:06 Dose: 500 mg Admin: 04/01/20 07:54 Dose: 500 mg Admin: 03/31/20 17:17 Dose: 500 mg Admin: 03/31/20 08:21 Dose: 500 mg Admin: 03/30/20 17:27 Dose: 500 mg Admin: 03/30/20 08:40 Dose: 500 mg Admin: 03/29/20 17:12 Dose: 500 mg Admin: 03/29/20 07:22 Dose: 500 mg Admin: 03/28/20 17:10 Dose: 500 mg Admin: 03/28/20 07:31 Dose: 500 mg Admin: 03/27/20 17:10 Dose: 500 mg Admin: 03/27/20 08:19 Dose: 500 mg Admin: 03/26/20 17:15 Dose: 500 mg Admin: 03/26/20 07:41 Dose: 500 mg Admin: 03/25/20 17:04 Dose: 500 mg Admin: 03/25/20 07:27 Dose: 500 mg Admin: 03/24/20 17:20 Dose: 500 mg Admin: 03/24/20 08:01 Dose: 500 mg Admin: 03/23/20 17:01 Dose: 500 mg Admin: 03/23/20 08:06 Dose: 500 mg Admin: 03/22/20 17:01 Dose: 500 mg Admin: 03/22/20 07:37 Dose: 500 mg Admin: 03/21/20 17:08 Dose: 500 mg Admin: 03/21/20 08:09 Dose: 500 mg Admin: 03/20/20 17:11 Dose: 500 mg Admin: 03/20/20 07:42 Dose: 500 mg Admin: 03/19/20 17:14 Dose: 500 mg Admin: 03/19/20 08:05 Dose: 500 mg Admin: 03/18/20 17:55 Dose: 500 mg Admin: 03/18/20 08:29 Dose: 500 mg Admin: 03/17/20 17:22 Dose: 500 mg Admin: 03/17/20 08:05 Dose: 500 mg Admin: 03/16/20 17:41 Dose: 500 mg Admin: 03/16/20 08:36 Dose: 500 mg Admin: 03/15/20 17:38 Dose: 500 mg Admin: 03/15/20 08:21 Dose: 500 mg Admin: 03/14/20 17:23 Dose: 500 mg Admin: 03/14/20 08:20 Dose: 500 mg Admin: 03/13/20 17:37 Dose: 500 mg Admin: 03/13/20 08:33 Dose: 500 mg Admin: 03/12/20 17:40 Dose: 500 mg Admin: 03/12/20 08:21 Dose: 500 mg Admin: 03/11/20 17:06 Dose: 500 mg Admin: 03/11/20 08:45 Dose: 500 mg Admin: 03/10/20 17:29 Dose: 500 mg Admin: 03/10/20 08:15 Dose: 500 mg Admin: 03/09/20 17:51 Dose: 500 mg Admin: 03/09/20 08:27 Dose: 500 mg Admin: 03/08/20 17:27 Dose: 500 mg Admin: 03/08/20 09:19 Dose: 500 mg Admin: 03/07/20 17:39 Dose: 500 mg Admin: 03/07/20 08:16 Dose: 500 mg Admin: 03/06/20 17:33 Dose: 500 mg Admin: 03/06/20 07:54 Dose: 500 mg Admin: 03/05/20 17:23 Dose: 500 mg Admin: 03/05/20 08:10 Dose: 500 mg Admin: 03/04/20 17:05 Dose: 500 mg Admin: 03/04/20 07:31 Dose: 500 mg Admin: 03/03/20 17:52 Dose: 500 mg Admin: 03/03/20 08:20 Dose: 500 mg Admin: 03/02/20 17:42 Dose: 500 mg Admin: 03/02/20 08:37 Dose: 500 mg Admin: 03/01/20 17:32 Dose: 500 mg Admin: 03/01/20 08:25 Dose: 500 mg Admin: 02/29/20 17:37 Dose: 500 mg Admin: 02/29/20 08:04 Dose: 500 mg Admin: 02/28/20 17:27 Dose: 500 mg Admin: 02/28/20 08:00 Dose: 500 mg Admin: 02/27/20 17:21 Dose: 500 mg Admin: 02/27/20 08:19 Dose: 500 mg Admin: 02/26/20 17:31 Dose: 500 mg Admin: 02/26/20 08:35 Dose: 500 mg Admin: 02/25/20 17:35 Dose: 500 mg Admin: 02/25/20 07:57 Dose: 500 mg Admin: 02/24/20 17:35 Dose: 500 mg Admin: 02/24/20 08:25 Dose: 500 mg Admin: 02/23/20 17:35 Dose: 500 mg Admin: 02/23/20 08:30 Dose: 500 mg Admin: 02/22/20 17:45 Dose: 500 mg Admin: 02/22/20 08:21 Dose: 500 mg Admin: 02/21/20 17:40 Dose: 500 mg Admin: 02/21/20 07:58 Dose: 500 mg Admin: 02/20/20 17:39 Dose: 500 mg Admin: 02/20/20 08:13 Dose: 500 mg Admin: 02/19/20 17:00 Dose: 500 mg Admin: 02/19/20 08:18 Dose: 500 mg Admin: 02/18/20 17:55 Dose: 500 mg Admin: 02/18/20 08:17 Dose: 500 mg Admin: 02/17/20 17:31 Dose: 500 mg Admin: 02/17/20 08:30 Dose: 500 mg Admin: 02/16/20 17:17 Dose: 500 mg Admin: 02/16/20 08:24 Dose: 500 mg Admin: 02/15/20 17:12 Dose: 500 mg Admin: 02/15/20 07:01 Dose: 500 mg Admin: 02/14/20 17:34 Dose: 500 mg Admin: 02/14/20 08:28 Dose: 500 mg Admin: 02/13/20 17:03 Dose: 500 mg Admin: 02/13/20 07:50 Dose: 500 mg Admin: 02/12/20 17:03 Dose: 500 mg Admin: 02/12/20 07:08 Dose: 500 mg Admin: 02/11/20 17:06 Dose: 500 mg Admin: 02/11/20 07:16 Dose: 500 mg Admin: 02/10/20 17:55 Dose: 500 mg Admin: 02/10/20 08:34 Dose: 500 mg Admin: 02/09/20 17:43 Dose: 500 mg Admin: 02/09/20 08:41 Dose: 500 mg Admin: 02/08/20 17:02 Dose: 500 mg Admin: 02/08/20 07:16 Dose: 500 mg Admin: 02/07/20 17:42 Dose: 500 mg Admin: 02/07/20 08:28 Dose: 500 mg Admin: 02/06/20 17:54 Dose: 500 mg Admin: 02/06/20 08:12 Dose: 500 mg Admin: 02/05/20 17:51 Dose: 500 mg Admin: 02/05/20 08:18 Dose: 500 mg Admin: 02/04/20 17:48 Dose: 500 mg Admin: 02/04/20 09:06 Dose: 500 mg Admin: 02/03/20 17:53 Dose: 500 mg Admin: 02/03/20 07:29 Dose: 500 mg Admin: 02/02/20 17:16 Dose: 500 mg Admin: 02/02/20 07:07 Dose: 500 mg Admin: 02/01/20 17:03 Dose: 500 mg Admin: 02/01/20 07:08 Dose: 500 mg Admin: 01/31/20 17:01 Dose: 500 mg Admin: 01/31/20 07:07 Dose: 500 mg Admin: 01/30/20 17:39 Dose: 500 mg Admin: 01/30/20 08:07 Dose: 500 mg Admin: 01/29/20 17:24 Dose: 500 mg Admin: 01/29/20 08:01 Dose: 500 mg Admin: 01/28/20 17:37 Dose: 500 mg Admin: 01/28/20 07:56 Dose: 500 mg Admin: 01/27/20 17:22 Dose: 500 mg Admin: 01/27/20 07:06 Dose: 500 mg Admin: 01/26/20 17:30 Dose: 500 mg Admin: 01/26/20 07:31 Dose: 500 mg Admin: 01/25/20 17:08 Dose: 500 mg Admin: 01/25/20 07:11 Dose: 500 mg Admin: 01/24/20 17:28 Dose: 500 mg Admin: 01/24/20 07:57 Dose: 500 mg Admin: 01/23/20 17:04 Dose: 500 mg Admin: 01/23/20 07:09 Dose: 500 mg Admin: 01/22/20 17:09 Dose: 500 mg Admin: 01/22/20 07:15 Dose: 500 mg Admin: 01/21/20 17:32 Dose: 500 mg Admin: 01/21/20 08:00 Dose: 500 mg Admin: 01/20/20 17:34 Dose: 500 mg Admin: 01/20/20 08:01 Dose: 500 mg Admin: 01/19/20 17:39 Dose: 500 mg Admin: 01/19/20 07:56 Dose: 500 mg Admin: 01/18/20 17:10 Dose: 500 mg Admin: 01/18/20 08:05 Dose: 500 mg Admin: 01/17/20 17:03 Dose: 500 mg Admin: 01/17/20 08:08 Dose: 500 mg Admin: 01/16/20 17:25 Dose: 500 mg Admin: 01/16/20 08:20 Dose: 500 mg Admin: 01/15/20 17:48 Dose: 500 mg Admin: 01/15/20 08:18 Dose: 500 mg Admin: 01/14/20 17:47 Dose: 500 mg Admin: 01/14/20 08:09 Dose: 500 mg Admin: 01/13/20 17:41 Dose: 500 mg Admin: 01/13/20 08:21 Dose: 500 mg Admin: 01/12/20 17:44 Dose: 500 mg Admin: 01/12/20 08:18 Dose: 500 mg Admin: 01/11/20 17:29 Dose: 500 mg Admin: 01/11/20 07:53 Dose: 500 mg Admin: 01/10/20 17:48 Dose: 500 mg Admin: 01/10/20 08:32 Dose: 500 mg Admin: 01/09/20 17:38 Dose: 500 mg Admin: 01/09/20 08:09 Dose: 500 mg Admin: 01/08/20 17:32 Dose: 500 mg Admin: 01/08/20 08:12 Dose: 500 mg Admin: 01/07/20 17:50 Dose: 500 mg Admin: 01/07/20 08:13 Dose: 500 mg Admin: 01/06/20 17:12 Dose: 500 mg Admin: 01/06/20 08:23 Dose: 500 mg Admin: 01/05/20 17:44 Dose: 500 mg Admin: 01/05/20 08:02 Dose: 500 mg Admin: 01/04/20 17:40 Dose: 500 mg Admin: 01/04/20 07:55 Dose: 500 mg Admin: 01/03/20 18:22 Dose: 500 mg Admin: 01/03/20 08:13 Dose: 500 mg Admin: 01/02/20 17:47 Dose: 500 mg Admin: 01/02/20 07:59 Dose: 500 mg Admin: 01/01/20 17:09 Dose: 500 mg Admin: 01/01/20 07:13 Dose: 500 mg Admin: 12/31/19 17:46 Dose: 500 mg Admin: 12/31/19 08:06 Dose: 500 mg Admin: 12/30/19 17:54 Dose: 500 mg Admin: 12/30/19 08:02 Dose: 500 mg Admin: 12/29/19 17:09 Dose: 500 mg Admin: 12/29/19 08:20 Dose: 500 mg Admin: 12/28/19 17:42 Dose: 500 mg Admin: 12/28/19 08:01 Dose: 500 mg Admin: 12/27/19 17:44 Dose: 500 mg Admin: 12/27/19 07:57 Dose: 500 mg Admin: 12/26/19 17:12 Dose: 500 mg Admin: 12/26/19 07:59 Dose: 500 mg Admin: 12/25/19 17:36 Dose: 500 mg Admin: 12/25/19 07:52 Dose: 500 mg Admin: 12/24/19 17:42 Dose: 500 mg Admin: 12/24/19 07:52 Dose: 500 mg Admin: 12/23/19 17:49 Dose: 500 mg Admin: 12/23/19 08:05 Dose: 500 mg Admin: 12/22/19 17:08 Dose: 500 mg Admin: 12/22/19 07:03 Dose: 500 mg Admin: 12/21/19 17:14 Dose: 500 mg Admin: 12/21/19 07:25 Dose: 500 mg Admin: 12/20/19 17:11 Dose: 500 mg Admin: 12/20/19 07:15 Dose: 500 mg Admin: 12/19/19 17:34 Dose: 500 mg Admin: 12/19/19 07:46 Dose: 500 mg Admin: 12/18/19 17:41 Dose: 500 mg Admin: 12/18/19 08:07 Dose: 500 mg Admin: 12/17/19 17:45 Dose: 500 mg Admin: 12/17/19 07:54 Dose: 500 mg Admin: 12/16/19 17:58 Dose: 500 mg Admin: 12/16/19 07:30 Dose: 500 mg Admin: 12/15/19 17:06 Dose: 500 mg Admin: 12/15/19 07:06 Dose: 500 mg Admin: 12/14/19 17:40 Dose: 500 mg Admin: 12/14/19 07:36 Dose: 500 mg Admin: 12/13/19 17:06 Dose: 500 mg Admin: 12/13/19 08:01 Dose: 500 mg Admin: 12/12/19 17:03 Dose: 500 mg Admin: 12/12/19 07:09 Dose: 500 mg Admin: 12/11/19 17:10 Dose: 500 mg Admin: 12/11/19 07:10 Dose: 500 mg Admin: 12/10/19 17:36 Dose: 500 mg Admin: 12/10/19 07:51 Dose: 500 mg Admin: 12/09/19 17:30 Dose: 500 mg Admin: 12/09/19 07:51 Dose: 500 mg Admin: 12/08/19 17:41 Dose: 500 mg Admin: 12/08/19 08:48 Dose: 500 mg Admin: 12/07/19 17:43 Dose: 500 mg Admin: 12/07/19 07:58 Dose: 500 mg Admin: 12/06/19 17:58 Dose: 500 mg Admin: 12/06/19 08:09 Dose: 500 mg Admin: 12/05/19 17:43 Dose: 500 mg Admin: 12/05/19 08:11 Dose: 500 mg Admin: 12/04/19 17:51 Dose: 500 mg Admin: 12/04/19 08:18 Dose: 500 mg Admin: 12/03/19 17:50 Dose: 500 mg Admin: 12/03/19 08:11 Dose: 500 mg Admin: 12/02/19 17:48 Dose: 500 mg Admin: 12/02/19 08:07 Dose: 500 mg Admin: 12/01/19 17:14 Dose: 500 mg Admin: 12/01/19 07:22 Dose: 500 mg Admin: 11/30/19 17:36 Dose: 500 mg Admin: 11/30/19 08:08 Dose: 500 mg Admin: 11/29/19 17:08 Dose: 500 mg Admin: 11/29/19 07:19 Dose: 500 mg Admin: 11/28/19 17:30 Dose: 500 mg Admin: 11/28/19 08:11 Dose: 500 mg Admin: 11/27/19 17:51 Dose: 500 mg Admin: 11/27/19 08:10 Dose: 500 mg Admin: 11/26/19 17:53 Dose: 500 mg Admin: 11/26/19 08:18 Dose: 500 mg Admin: 11/25/19 17:04 Dose: 500 mg Admin: 11/25/19 07:14 Dose: 500 mg Admin: 11/24/19 17:15 Dose: 500 mg Admin: 11/24/19 08:25 Dose: 500 mg Admin: 11/23/19 17:18 Dose: 500 mg Admin: 11/23/19 07:03 Dose: 500 mg Admin: 11/22/19 17:01 Dose: 500 mg Admin: 11/22/19 07:48 Dose: 500 mg Admin: 11/21/19 17:06 Dose: 500 mg Admin: 11/21/19 07:13 Dose: 500 mg Admin: 11/20/19 17:07 Dose: 500 mg Admin: 11/20/19 08:00 Dose: 500 mg Admin: 11/19/19 17:37 Dose: 500 mg Admin: 11/19/19 07:59 Dose: 500 mg Admin: 11/18/19 17:04 Dose: 500 mg Admin: 11/18/19 07:11 Dose: 500 mg Admin: 11/17/19 17:28 Dose: 500 mg Admin: 11/17/19 08:09 Dose: 500 mg Admin: 11/16/19 17:23 Dose: 500 mg Admin: 11/16/19 08:03 Dose: 500 mg Admin: 11/15/19 17:07 Dose: 500 mg Admin: 11/15/19 07:37 Dose: 500 mg Admin: 11/14/19 17:10 Dose: 500 mg Admin: 11/14/19 07:52 Dose: 500 mg Admin: 11/13/19 17:16 Dose: 500 mg Admin: 11/13/19 07:51 Dose: 500 mg Admin: 11/12/19 17:57 Dose: 500 mg Admin: 11/12/19 08:04 Dose: 500 mg Admin: 11/11/19 17:37 Dose: 500 mg Admin: 11/11/19 07:47 Dose: 500 mg Admin: 11/10/19 17:04 Dose: 500 mg Admin: 11/10/19 07:06 Dose: 500 mg Admin: 11/09/19 17:10 Dose: 500 mg Admin: 11/09/19 07:06 Dose: 500 mg Admin: 11/08/19 17:02 Dose: 500 mg Admin: 11/08/19 07:34 Dose: 500 mg Admin: 11/07/19 17:47 Dose: 500 mg Admin: 11/07/19 07:42 Dose: 500 mg Admin: 11/06/19 17:04 Dose: 500 mg Admin: 11/06/19 07:40 Dose: 500 mg Admin: 11/05/19 17:33 Dose: 500 mg Admin: 11/05/19 07:46 Dose: 500 mg Admin: 11/04/19 17:40 Dose: 500 mg Admin: 11/04/19 07:58 Dose: 500 mg Admin: 11/03/19 17:04 Dose: 500 mg Admin: 11/03/19 07:54 Dose: 500 mg Admin: 11/02/19 17:36 Dose: 500 mg Admin: 11/02/19 08:05 Dose: 500 mg Admin: 11/01/19 17:09 Dose: 500 mg Admin: 11/01/19 08:26 Dose: 500 mg Admin: 10/31/19 17:03 Dose: 500 mg Admin: 10/31/19 07:23 Dose: 500 mg Admin: 10/30/19 17:18 Dose: 500 mg Admin: 10/30/19 07:18 Dose: 500 mg Admin: 10/29/19 17:08 Dose: 500 mg Admin: 10/29/19 07:21 Dose: 500 mg Admin: 10/28/19 17:46 Dose: 500 mg Admin: 10/28/19 08:10 Dose: 500 mg Admin: 10/27/19 17:20 Dose: 500 mg Admin: 10/27/19 08:07 Dose: 500 mg Admin: 10/26/19 17:36 Dose: 500 mg Admin: 10/26/19 08:00 Dose: 500 mg Admin: 10/25/19 17:13 Dose: 500 mg Admin: 10/25/19 07:34 Dose: 500 mg Admin: 10/24/19 17:27 Dose: 500 mg Admin: 10/24/19 07:54 Dose: 500 mg Admin: 10/23/19 17:15 Dose: 500 mg Admin: 10/23/19 08:20 Dose: 500 mg Admin: 10/22/19 17:36 Dose: 500 mg Admin: 10/22/19 07:57 Dose: 500 mg Admin: 10/21/19 17:10 Dose: 500 mg Admin: 10/21/19 07:56 Dose: 500 mg Admin: 10/20/19 17:38 Dose: 500 mg Admin: 10/20/19 08:00 Dose: 500 mg Admin: 10/19/19 17:09 Dose: 500 mg Admin: 10/19/19 07:25 Dose: 500 mg Admin: 10/18/19 17:15 Dose: 500 mg Admin: 10/18/19 08:05 Dose: 500 mg Admin: 10/17/19 17:39 Dose: 500 mg Admin: 10/17/19 08:02 Dose: 500 mg Admin: 10/16/19 17:35 Dose: 500 mg Admin: 10/16/19 07:59 Dose: 500 mg Admin: 10/15/19 18:00 Dose: 500 mg Admin: 10/15/19 08:13 Dose: 500 mg Admin: 10/14/19 18:00 Dose: 500 mg Admin: 10/14/19 08:25 Dose: 500 mg Admin: 10/13/19 17:12 Dose: 500 mg Admin: 10/13/19 07:29 Dose: 500 mg Admin: 10/12/19 17:11 Dose: 500 mg Admin: 10/12/19 07:28 Dose: 500 mg Admin: 10/11/19 17:12 Dose: 500 mg Admin: 10/11/19 07:24 Dose: 500 mg Admin: 10/10/19 17:37 Dose: 500 mg Admin: 10/10/19 07:55 Dose: 500 mg Admin: 10/09/19 17:10 Dose: 500 mg Admin: 10/09/19 07:15 Dose: 500 mg Admin: 10/08/19 17:22 Dose: 500 mg Admin: 10/08/19 07:47 Dose: 500 mg Admin: 10/07/19 17:20 Dose: 500 mg Admin: 10/07/19 08:17 Dose: 500 mg Admin: 10/06/19 17:32 Dose: 500 mg Admin: 10/06/19 07:57 Dose: 500 mg Admin: 10/05/19 17:11 Dose: 500 mg Admin: 10/05/19 07:51 Dose: 500 mg Admin: 10/04/19 17:53 Dose: 500 mg Admin: 10/04/19 08:21 Dose: 500 mg Admin: 10/03/19 17:33 Dose: 500 mg Admin: 10/03/19 07:51 Dose: 500 mg Admin: 10/02/19 17:34 Dose: 500 mg Admin: 10/02/19 08:12 Dose: 500 mg Admin: 10/01/19 17:38 Dose: 500 mg Admin: 10/01/19 08:15 Dose: 500 mg Admin: 09/30/19 17:07 Dose: 500 mg Admin: 09/30/19 07:41 Dose: 500 mg Admin: 09/29/19 17:04 Dose: 500 mg Admin: 09/29/19 07:32 Dose: 500 mg Admin: 09/28/19 17:31 Dose: 500 mg Admin: 09/28/19 08:15 Dose: 500 mg Admin: 09/27/19 17:11 Dose: 500 mg Admin: 09/27/19 07:35 Dose: 500 mg Admin: 09/26/19 17:12 Dose: 500 mg Admin: 09/26/19 07:39 Dose: 500 mg Admin: 09/25/19 17:18 Dose: 500 mg Admin: 09/25/19 07:39 Dose: 500 mg Admin: 09/24/19 17:07 Dose: 500 mg Admin: 09/24/19 07:37 Dose: 500 mg Admin: 09/23/19 18:15 Dose: 500 mg Admin: 09/23/19 09:02 Dose: 500 mg Admin: 09/22/19 17:26 Dose: 500 mg Admin: 09/22/19 08:09 Dose: 500 mg Admin: 09/21/19 17:39 Dose: 500 mg Admin: 09/21/19 07:46 Dose: 500 mg Admin: 09/20/19 17:23 Dose: 500 mg Admin: 09/20/19 07:59 Dose: 500 mg Admin: 09/19/19 17:11 Dose: 500 mg Admin: 09/19/19 07:17 Dose: 500 mg Admin: 09/18/19 17:03 Dose: 500 mg Admin: 09/18/19 07:26 Dose: 500 mg Admin: 09/17/19 17:12 Dose: 500 mg Admin: 09/17/19 07:30 Dose: 500 mg Admin: 09/16/19 17:53 Dose: 500 mg Admin: 09/16/19 08:17 Dose: 500 mg Admin: 09/15/19 17:08 Dose: 500 mg Admin: 09/15/19 07:31 Dose: 500 mg Admin: 09/14/19 17:39 Dose: 500 mg Admin: 09/14/19 08:18 Dose: 500 mg Admin: 09/13/19 17:04 Dose: 500 mg Admin: 09/13/19 07:29 Dose: 500 mg Admin: 09/12/19 17:32 Dose: 500 mg Admin: 09/12/19 07:50 Dose: 500 mg Admin: 09/11/19 17:28 Dose: 500 mg Admin: 09/11/19 07:46 Dose: 500 mg Admin: 09/10/19 17:37 Dose: 500 mg Admin: 09/10/19 08:10 Dose: 500 mg Admin: 09/09/19 17:40 Dose: 500 mg Admin: 09/09/19 08:18 Dose: 500 mg Admin: 09/08/19 17:09 Dose: 500 mg Admin: 09/08/19 07:23 Dose: 500 mg Admin: 09/07/19 17:12 Dose: 500 mg Admin: 09/07/19 07:44 Dose: 500 mg Admin: 09/06/19 18:05 Dose: 500 mg Admin: 09/06/19 08:07 Dose: 500 mg Admin: 09/05/19 17:05 Dose: 500 mg Admin: 09/05/19 07:29 Dose: 500 mg Admin: 09/04/19 17:14 Dose: 500 mg Admin: 09/04/19 07:22 Dose: 500 mg Admin: 09/03/19 17:06 Dose: 500 mg Admin: 09/03/19 07:40 Dose: 500 mg Admin: 09/02/19 17:53 Dose: 500 mg Admin: 09/02/19 08:35 Dose: 500 mg Admin: 09/01/19 17:05 Dose: 500 mg Admin: 09/01/19 07:32 Dose: 500 mg Admin: 08/31/19 17:11 Dose: 500 mg Admin: 08/31/19 07:49 Dose: 500 mg Admin: 08/30/19 17:03 Dose: 500 mg Admin: 08/30/19 07:28 Dose: 500 mg Admin: 08/29/19 17:08 Dose: 500 mg Admin: 08/29/19 07:30 Dose: 500 mg Admin: 08/28/19 17:50 Dose: 500 mg Admin: 08/28/19 07:47 Dose: 500 mg Admin: 08/27/19 17:23 Dose: 500 mg Admin: 08/27/19 08:00 Dose: 500 mg Admin: 08/26/19 17:08 Dose: 500 mg Admin: 08/26/19 08:02 Dose: 500 mg Admin: 08/25/19 17:15 Dose: 500 mg Admin: 08/25/19 07:59 Dose: 500 mg Admin: 08/24/19 17:39 Dose: 500 mg Admin: 08/24/19 08:16 Dose: 500 mg Admin: 08/23/19 17:10 Dose: 500 mg Admin: 08/23/19 07:31 Dose: 500 mg Admin: 08/22/19 17:10 Dose: 500 mg Admin: 08/22/19 08:09 Dose: 500 mg Admin: 08/21/19 17:41 Dose: 500 mg Admin: 08/21/19 07:54 Dose: 500 mg Admin: 08/20/19 17:39 Dose: 500 mg Admin: 08/20/19 07:57 Dose: 500 mg Admin: 08/19/19 17:05 Dose: 500 mg Admin: 08/19/19 07:14 Dose: 500 mg Admin: 08/18/19 17:12 Dose: 500 mg Admin: 08/18/19 07:29 Dose: 500 mg Admin: 08/17/19 17:51 Dose: 500 mg Admin: 08/17/19 07:51 Dose: 500 mg Admin: 08/16/19 17:11 Dose: 500 mg Admin: 08/16/19 07:34 Dose: 500 mg Admin: 08/15/19 17:14 Dose: 500 mg Admin: 08/15/19 07:37 Dose: 500 mg Admin: 08/14/19 17:09 Dose: 500 mg Admin: 08/14/19 07:53 Dose: 500 mg Admin: 08/13/19 17:43 Dose: 500 mg Admin: 08/13/19 07:59 Dose: 500 mg Admin: 08/12/19 17:36 Dose: 500 mg Admin: 08/12/19 07:51 Dose: 500 mg Admin: 08/11/19 17:32 Dose: 500 mg Admin: 08/11/19 07:26 Dose: 500 mg Admin: 08/10/19 17:39 Dose: 500 mg Admin: 08/10/19 07:46 Dose: 500 mg Admin: 08/09/19 17:20 Dose: 500 mg Admin: 08/09/19 07:36 Dose: 500 mg Admin: 08/08/19 17:08 Dose: 500 mg Admin: 08/08/19 07:15 Dose: 500 mg Admin: 08/07/19 17:14 Dose: 500 mg Admin: 08/07/19 07:32 Dose: 500 mg Admin: 08/06/19 17:10 Dose: 500 mg Admin: 08/06/19 07:28 Dose: 500 mg Admin: 08/05/19 17:46 Dose: 500 mg Admin: 08/05/19 07:50 Dose: 500 mg Admin: 08/04/19 17:11 Dose: 500 mg Admin: 08/04/19 07:51 Dose: 500 mg Admin: 08/03/19 17:34 Dose: 500 mg Admin: 08/03/19 08:03 Dose: 500 mg Admin: 08/02/19 17:34 Dose: 500 mg Admin: 08/02/19 14:37 Dose: Admin: 08/01/19 17:56 Dose: 500 mg Admin: 08/01/19 07:54 Dose: 500 mg Admin: 07/31/19 17:43 Dose: 500 mg Admin: 07/31/19 07:38 Dose: 500 mg Admin: 07/30/19 17:23 Dose: 500 mg Admin: 07/30/19 08:05 Dose: 500 mg Admin: 07/29/19 17:14 Dose: 500 mg Admin: 07/29/19 07:20 Dose: 500 mg Admin: 07/28/19 17:12 Dose: 500 mg Admin: 07/28/19 07:36 Dose: 500 mg Admin: 07/27/19 17:08 Dose: 500 mg Admin: 07/27/19 07:41 Dose: 500 mg Admin: 07/26/19 17:14 Dose: 500 mg Admin: 07/26/19 08:01 Dose: 500 mg Admin: 07/25/19 17:22 Dose: 500 mg Admin: 07/25/19 07:54 Dose: 500 mg Admin: 07/24/19 17:39 Dose: 500 mg Admin: 07/24/19 07:34 Dose: 500 mg Admin: 07/23/19 17:59 Dose: 500 mg Admin: 07/23/19 08:20 Dose: 500 mg Admin: 07/22/19 18:06 Dose: 500 mg Admin: 07/22/19 08:10 Dose: 500 mg Admin: 07/21/19 17:25 Dose: 500 mg Admin: 07/21/19 08:16 Dose: 500 mg Admin: 07/20/19 17:55 Dose: 500 mg Admin: 07/20/19 07:58 Dose: 500 mg Admin: 07/19/19 17:15 Dose: 500 mg Admin: 07/19/19 07:31 Dose: 500 mg Admin: 07/18/19 17:12 Dose: 500 mg Admin: 07/18/19 07:34 Dose: 500 mg Admin: 07/17/19 17:12 Dose: 500 mg Admin: 07/17/19 07:34 Dose: 500 mg Admin: 07/16/19 17:18 Dose: 500 mg Admin: 07/16/19 07:34 Dose: 500 mg Admin: 07/15/19 17:35 Dose: 500 mg Admin: 07/15/19 08:04 Dose: 500 mg Admin: 07/14/19 17:48 Dose: 500 mg Admin: 07/14/19 08:01 Dose: 500 mg Admin: 07/13/19 17:52 Dose: 500 mg Admin: 07/13/19 08:00 Dose: 500 mg Admin: 07/12/19 17:10 Dose: 500 mg Admin: 07/12/19 07:29 Dose: 500 mg Admin: 07/11/19 17:29 Dose: 500 mg Admin: 07/11/19 07:53 Dose: 500 mg Admin: 07/10/19 17:23 Dose: 500 mg Admin: 07/10/19 08:02 Dose: 500 mg Admin: 07/09/19 17:14 Dose: 500 mg Admin: 07/09/19 07:25 Dose: 500 mg Admin: 07/08/19 17:14 Dose: 500 mg Admin: 07/08/19 07:26 Dose: 500 mg Admin: 07/07/19 17:40 Dose: 500 mg Admin: 07/07/19 08:03 Dose: 500 mg Admin: 07/06/19 17:32 Dose: 500 mg Admin: 07/06/19 07:56 Dose: 500 mg Admin: 07/05/19 17:17 Dose: 500 mg Admin: 07/05/19 07:47 Dose: 500 mg Admin: 07/04/19 18:10 Dose: 500 mg Admin: 07/04/19 07:28 Dose: 500 mg Admin: 07/03/19 17:11 Dose: 500 mg Admin: 07/03/19 07:48 Dose: 500 mg Admin: 07/02/19 17:45 Dose: 500 mg Admin: 07/02/19 08:27 Dose: 500 mg Admin: 07/01/19 17:32 Dose: 500 mg Admin: 07/01/19 08:25 Dose: 500 mg Admin: 06/30/19 17:25 Dose: 500 mg Admin: 06/30/19 08:10 Dose: 500 mg Admin: 06/29/19 17:37 Dose: 500 mg Admin: 06/29/19 07:49 Dose: 500 mg Admin: 06/28/19 17:54 Dose: 500 mg Admin: 06/28/19 07:52 Dose: 500 mg Admin: 06/27/19 17:57 Dose: 500 mg Admin: 06/27/19 07:53 Dose: 500 mg Admin: 06/26/19 17:47 Dose: 500 mg Admin: 06/26/19 08:02 Dose: 500 mg Admin: 06/25/19 17:47 Dose: 500 mg Admin: 06/25/19 08:11 Dose: 500 mg Admin: 06/24/19 17:21 Dose: 500 mg Admin: 06/24/19 07:45 Dose: 500 mg Admin: 06/23/19 17:47 Dose: 500 mg Admin: 06/23/19 08:12 Dose: 500 mg Admin: 06/22/19 17:19 Dose: 500 mg Admin: 06/22/19 07:34 Dose: 500 mg Admin: 06/21/19 17:19 Dose: 500 mg Admin: 06/21/19 07:22 Dose: 500 mg Admin: 06/20/19 17:08 Dose: 500 mg Admin: 06/20/19 07:20 Dose: 500 mg Admin: 06/19/19 17:24 Dose: 500 mg Admin: 06/19/19 07:25 Dose: 500 mg Admin: 06/18/19 17:05 Dose: 500 mg Admin: 06/18/19 08:06 Dose: 500 mg Admin: 06/17/19 17:55 Dose: 500 mg Admin: 06/17/19 07:52 Dose: 500 mg Admin: 06/16/19 17:47 Dose: 500 mg Admin: 06/16/19 07:49 Dose: 500 mg Admin: 06/15/19 17:04 Dose: 500 mg Admin: 06/15/19 07:19 Dose: 500 mg Admin: 06/14/19 17:37 Dose: 500 mg Admin: 06/14/19 08:31 Dose: 500 mg Admin: 06/13/19 17:03 Dose: 500 mg Admin: 06/13/19 08:23 Dose: 500 mg Admin: 06/12/19 18:08 Dose: 500 mg Admin: 06/12/19 08:58 Dose: 500 mg Admin: 06/11/19 17:53 Dose: 500 mg Admin: 06/11/19 08:34 Dose: 500 mg Admin: 06/10/19 17:56 Dose: 500 mg Admin: 06/10/19 07:57 Dose: 500 mg Admin: 06/09/19 18:04 Dose: 500 mg Admin: 06/09/19 08:04 Dose: 500 mg Admin: 06/08/19 17:10 Dose: 500 mg Admin: 06/08/19 07:14 Dose: 500 mg Admin: 06/07/19 17:10 Dose: 500 mg Admin: 06/07/19 07:26 Dose: 500 mg Admin: 06/06/19 17:11 Dose: 500 mg Admin: 06/06/19 07:24 Dose: 500 mg Admin: 06/05/19 17:09 Dose: 500 mg Admin: 06/05/19 07:25 Dose: 500 mg Admin: 06/04/19 17:59 Dose: 500 mg Admin: 06/04/19 08:13 Dose: 500 mg Admin: 06/03/19 18:00 Dose: 500 mg Admin: 06/03/19 08:28 Dose: 500 mg Admin: 06/02/19 17:15 Dose: 500 mg Admin: 06/02/19 07:20 Dose: 500 mg Admin: 06/01/19 17:13 Dose: 500 mg Admin: 06/01/19 08:32 Dose: 500 mg Admin: 05/31/19 18:07 Dose: 500 mg Admin: 05/31/19 07:41 Dose: 500 mg Admin: 05/30/19 18:05 Dose: 500 mg Admin: 05/30/19 08:06 Dose: 500 mg Admin: 05/29/19 17:41 Dose: 500 mg Admin: 05/29/19 08:07 Dose: 500 mg Admin: 05/28/19 17:23 Dose: 500 mg Admin: 05/28/19 07:25 Dose: 500 mg Admin: 05/27/19 17:54 Dose: 500 mg Admin: 05/27/19 08:09 Dose: 500 mg Admin: 05/26/19 17:52 Dose: 500 mg Admin: 05/26/19 08:24 Dose: 500 mg Admin: 05/25/19 17:54 Dose: 500 mg Admin: 05/25/19 08:27 Dose: 500 mg Admin: 05/24/19 17:51 Dose: 500 mg Levothyroxine Sodium (137 Mcg Tablet) 137 mcg PO BEDTIME MIESHA Last Admin: 04/12/20 19:21 Dose: 137 mcg Admin: 04/11/20 19:36 Dose: 137 mcg Admin: 04/10/20 19:39 Dose: 137 mcg Admin: 04/09/20 20:28 Dose: 137 mcg Admin: 04/08/20 19:36 Dose: 137 mcg Admin: 04/07/20 19:27 Dose: 137 mcg Admin: 04/06/20 19:45 Dose: 137 mcg Admin: 04/05/20 19:11 Dose: 137 mcg Admin: 04/04/20 19:16 Dose: 137 mcg Admin: 04/03/20 19:30 Dose: 137 mcg Admin: 04/02/20 18:59 Dose: 137 mcg Admin: 04/01/20 19:13 Dose: 137 mcg Admin: 03/31/20 19:16 Dose: 137 mcg Admin: 03/30/20 19:21 Dose: 137 mcg Admin: 03/29/20 19:21 Dose: 137 mcg Admin: 03/28/20 19:16 Dose: 137 mcg Admin: 03/27/20 19:35 Dose: 137 mcg Admin: 03/26/20 19:17 Dose: 137 mcg Admin: 03/25/20 19:33 Dose: 137 mcg Admin: 03/24/20 19:15 Dose: 137 mcg Admin: 03/23/20 19:41 Dose: 137 mcg Admin: 03/22/20 19:25 Dose: 137 mcg Admin: 03/21/20 19:23 Dose: 137 mcg Admin: 03/20/20 19:40 Dose: 137 mcg Admin: 03/19/20 19:43 Dose: 137 mcg Admin: 03/18/20 19:24 Dose: 137 mcg Admin: 03/17/20 19:26 Dose: 137 mcg Admin: 03/16/20 19:30 Dose: 137 mcg Admin: 03/15/20 19:24 Dose: 137 mcg Admin: 03/14/20 19:25 Dose: 137 mcg Admin: 03/13/20 19:21 Dose: 137 mcg Admin: 03/12/20 19:51 Dose: 137 mcg Admin: 03/11/20 19:33 Dose: 137 mcg Admin: 03/10/20 19:36 Dose: 137 mcg Admin: 03/09/20 19:25 Dose: 137 mcg Admin: 03/08/20 19:12 Dose: 137 mcg Admin: 03/07/20 19:49 Dose: 137 mcg Admin: 03/06/20 19:28 Dose: 137 mcg Admin: 03/05/20 19:17 Dose: 137 mcg Admin: 03/04/20 19:19 Dose: 137 mcg Admin: 03/03/20 19:16 Dose: 137 mcg Admin: 03/02/20 19:28 Dose: 137 mcg Admin: 03/01/20 19:26 Dose: 137 mcg Admin: 02/29/20 19:20 Dose: 137 mcg Admin: 02/28/20 19:55 Dose: 137 mcg Admin: 02/27/20 19:28 Dose: 137 mcg Admin: 02/26/20 19:50 Dose: 137 mcg Admin: 02/25/20 19:34 Dose: 137 mcg Admin: 02/24/20 19:26 Dose: 137 mcg Admin: 02/23/20 19:42 Dose: 137 mcg Admin: 02/22/20 19:16 Dose: 137 mcg Admin: 02/21/20 19:18 Dose: 137 mcg Admin: 02/20/20 19:35 Dose: 137 mcg Admin: 02/19/20 19:30 Dose: 137 mcg Admin: 02/18/20 19:35 Dose: 137 mcg Admin: 02/17/20 19:41 Dose: 137 mcg Admin: 02/16/20 19:37 Dose: 137 mcg Admin: 02/15/20 19:09 Dose: 137 mcg Admin: 02/14/20 19:17 Dose: 137 mcg Admin: 02/13/20 19:10 Dose: 137 mcg Admin: 02/12/20 19:20 Dose: 137 mcg Admin: 02/11/20 19:17 Dose: 137 mcg Admin: 02/10/20 19:28 Dose: 137 mcg Admin: 02/09/20 19:48 Dose: 137 mcg Admin: 02/08/20 19:39 Dose: 137 mcg Admin: 02/07/20 19:38 Dose: 137 mcg Admin: 02/06/20 19:35 Dose: 137 mcg Admin: 02/05/20 19:12 Dose: 137 mcg Admin: 02/04/20 19:45 Dose: 137 mcg Admin: 02/03/20 19:35 Dose: 137 mcg Admin: 02/02/20 19:24 Dose: 137 mcg Admin: 02/01/20 19:39 Dose: 137 mcg Admin: 01/31/20 19:34 Dose: 137 mcg Admin: 01/30/20 19:36 Dose: 137 mcg Admin: 01/29/20 19:38 Dose: 137 mcg Admin: 01/28/20 19:53 Dose: 137 mcg Admin: 01/27/20 19:12 Dose: 137 mcg Admin: 01/26/20 19:32 Dose: 137 mcg Admin: 01/25/20 19:33 Dose: 137 mcg Admin: 01/24/20 20:01 Dose: 137 mcg Admin: 01/23/20 19:21 Dose: 137 mcg Admin: 01/22/20 19:15 Dose: 137 mcg Admin: 01/21/20 19:27 Dose: 137 mcg Admin: 01/20/20 19:27 Dose: 137 mcg Admin: 01/19/20 19:19 Dose: 137 mcg Admin: 01/18/20 19:30 Dose: 137 mcg Admin: 01/17/20 19:52 Dose: 137 mcg Admin: 01/16/20 20:08 Dose: 137 mcg Admin: 01/15/20 19:53 Dose: 137 mcg Admin: 01/14/20 19:34 Dose: 137 mcg Admin: 01/13/20 19:15 Dose: 137 mcg Admin: 01/12/20 19:27 Dose: 137 mcg Admin: 01/11/20 19:40 Dose: 137 mcg Admin: 01/10/20 19:34 Dose: 137 mcg Admin: 01/09/20 19:19 Dose: 137 mcg Admin: 01/08/20 19:21 Dose: 137 mcg Admin: 01/07/20 19:17 Dose: 137 mcg Admin: 01/06/20 19:45 Dose: 137 mcg Admin: 01/05/20 19:58 Dose: 137 mcg Admin: 01/04/20 19:47 Dose: 137 mcg Admin: 01/03/20 20:15 Dose: 137 mcg Admin: 01/02/20 19:21 Dose: 137 mcg Admin: 01/01/20 19:51 Dose: 137 mcg Admin: 12/31/19 19:51 Dose: 137 mcg Admin: 12/30/19 19:47 Dose: 137 mcg Admin: 12/29/19 19:46 Dose: 137 mcg Admin: 12/28/19 19:35 Dose: 137 mcg Admin: 12/27/19 19:21 Dose: 137 mcg Admin: 12/26/19 19:23 Dose: 137 mcg Admin: 12/25/19 19:12 Dose: 137 mcg Admin: 12/24/19 19:17 Dose: 137 mcg Admin: 12/23/19 19:18 Dose: 137 mcg Admin: 12/22/19 19:12 Dose: 137 mcg Admin: 12/21/19 19:44 Dose: 137 mcg Admin: 12/20/19 19:28 Dose: 137 mcg Admin: 12/19/19 19:27 Dose: 137 mcg Admin: 12/18/19 19:10 Dose: 137 mcg Admin: 12/17/19 19:32 Dose: 137 mcg Admin: 12/16/19 19:12 Dose: 137 mcg Admin: 12/15/19 19:27 Dose: 137 mcg Admin: 12/14/19 19:17 Dose: 137 mcg Admin: 12/13/19 19:21 Dose: 137 mcg Admin: 12/12/19 19:14 Dose: 137 mcg Admin: 12/11/19 19:07 Dose: 137 mcg Admin: 12/10/19 19:21 Dose: 137 mcg Admin: 12/09/19 19:35 Dose: 137 mcg Admin: 12/08/19 19:40 Dose: 137 mcg Admin: 12/07/19 19:30 Dose: 137 mcg Admin: 12/06/19 19:13 Dose: 137 mcg Admin: 12/05/19 19:07 Dose: 137 mcg Admin: 12/04/19 19:00 Dose: 137 mcg Admin: 12/03/19 19:49 Dose: 137 mcg Admin: 12/02/19 19:46 Dose: 137 mcg Admin: 12/01/19 19:11 Dose: 137 mcg Admin: 11/30/19 19:05 Dose: 137 mcg Admin: 11/29/19 19:25 Dose: 137 mcg Admin: 11/28/19 19:21 Dose: 137 mcg Admin: 11/27/19 19:36 Dose: 137 mcg Admin: 11/26/19 19:16 Dose: 137 mcg Admin: 11/25/19 19:08 Dose: 137 mcg Admin: 11/24/19 19:34 Dose: 137 mcg Admin: 11/23/19 19:52 Dose: 137 mcg Admin: 11/22/19 19:27 Dose: 137 mcg Admin: 11/21/19 19:27 Dose: 137 mcg Admin: 11/20/19 19:16 Dose: 137 mcg Admin: 11/19/19 19:29 Dose: 137 mcg Admin: 11/18/19 19:31 Dose: 137 mcg Admin: 11/17/19 19:11 Dose: 137 mcg Admin: 11/16/19 19:37 Dose: 137 mcg Admin: 11/15/19 19:37 Dose: 137 mcg Admin: 11/14/19 19:16 Dose: 137 mcg Admin: 11/13/19 19:20 Dose: 137 mcg Admin: 11/12/19 19:31 Dose: 137 mcg Admin: 11/11/19 19:24 Dose: 137 mcg Admin: 11/10/19 19:33 Dose: 137 mcg Admin: 11/09/19 19:09 Dose: 137 mcg Admin: 11/08/19 19:23 Dose: 137 mcg Admin: 11/07/19 19:39 Dose: 137 mcg Admin: 11/06/19 19:02 Dose: 137 mcg Admin: 11/05/19 19:28 Dose: 137 mcg Admin: 11/04/19 19:41 Dose: 137 mcg Admin: 11/03/19 20:04 Dose: 137 mcg Admin: 11/02/19 19:21 Dose: 137 mcg Admin: 11/01/19 19:13 Dose: 137 mcg Admin: 10/31/19 19:47 Dose: 137 mcg Admin: 10/30/19 19:18 Dose: 137 mcg Admin: 10/29/19 19:20 Dose: 137 mcg Admin: 10/28/19 19:39 Dose: 137 mcg Admin: 10/27/19 19:40 Dose: 137 mcg Admin: 10/26/19 19:22 Dose: 137 mcg Admin: 10/25/19 19:23 Dose: 137 mcg Admin: 10/24/19 19:20 Dose: 137 mcg Admin: 10/23/19 19:00 Dose: 137 mcg Admin: 10/22/19 19:11 Dose: 137 mcg Admin: 10/21/19 19:16 Dose: 137 mcg Admin: 10/20/19 19:12 Dose: 137 mcg Admin: 10/19/19 19:28 Dose: 137 mcg Admin: 10/18/19 19:26 Dose: 137 mcg Admin: 10/17/19 19:42 Dose: 137 mcg Admin: 10/16/19 19:34 Dose: 137 mcg Admin: 10/15/19 19:13 Dose: 137 mcg Admin: 10/14/19 19:20 Dose: 137 mcg Admin: 10/13/19 19:31 Dose: 137 mcg Admin: 10/12/19 19:29 Dose: 137 mcg Admin: 10/11/19 19:53 Dose: 137 mcg Admin: 10/10/19 19:55 Dose: 137 mcg Admin: 10/09/19 19:22 Dose: 137 mcg Admin: 10/08/19 19:07 Dose: 137 mcg Admin: 10/07/19 19:14 Dose: 137 mcg Admin: 10/06/19 19:39 Dose: 137 mcg Admin: 10/05/19 19:58 Dose: 137 mcg Admin: 10/04/19 19:31 Dose: 137 mcg Admin: 10/03/19 19:28 Dose: 137 mcg Admin: 10/02/19 19:34 Dose: 137 mcg Admin: 10/01/19 19:43 Dose: 137 mcg Admin: 09/30/19 19:15 Dose: 137 mcg Admin: 09/29/19 19:17 Dose: 137 mcg Admin: 09/28/19 19:33 Dose: 137 mcg Admin: 09/27/19 19:41 Dose: 137 mcg Admin: 09/26/19 19:16 Dose: 137 mcg Admin: 09/25/19 19:31 Dose: 137 mcg Admin: 09/24/19 19:22 Dose: 137 mcg Admin: 09/23/19 19:13 Dose: 137 mcg Admin: 09/22/19 20:13 Dose: 137 mcg Admin: 09/21/19 19:52 Dose: 137 mcg Admin: 09/20/19 19:13 Dose: 137 mcg Admin: 09/19/19 19:18 Dose: 137 mcg Admin: 09/18/19 19:08 Dose: 137 mcg Admin: 09/17/19 19:36 Dose: 137 mcg Admin: 09/16/19 19:42 Dose: 137 mcg Admin: 09/15/19 19:57 Dose: 137 mcg Admin: 09/14/19 19:50 Dose: 137 mcg Admin: 09/13/19 19:51 Dose: 137 mcg Admin: 09/12/19 19:18 Dose: 137 mcg Admin: 09/11/19 19:35 Dose: 137 mcg Admin: 09/10/19 19:31 Dose: 137 mcg Admin: 09/09/19 19:20 Dose: 137 mcg Admin: 09/08/19 19:38 Dose: 137 mcg Admin: 09/07/19 19:09 Dose: 137 mcg Admin: 09/06/19 19:12 Dose: 137 mcg Admin: 09/05/19 19:45 Dose: 137 mcg Admin: 09/04/19 19:35 Dose: 137 mcg Admin: 09/03/19 19:29 Dose: 137 mcg Admin: 09/02/19 19:17 Dose: 137 mcg Admin: 09/01/19 19:18 Dose: 137 mcg Admin: 08/31/19 19:40 Dose: 137 mcg Admin: 08/30/19 19:28 Dose: 137 mcg Admin: 08/29/19 19:11 Dose: 137 mcg Admin: 08/28/19 19:26 Dose: 137 mcg Admin: 08/27/19 19:16 Dose: 137 mcg Admin: 08/26/19 19:20 Dose: 137 mcg Admin: 08/25/19 19:27 Dose: 137 mcg Admin: 08/24/19 19:17 Dose: 137 mcg Admin: 08/23/19 19:10 Dose: 137 mcg Admin: 08/22/19 19:10 Dose: 137 mcg Admin: 08/21/19 19:29 Dose: 137 mcg Admin: 08/20/19 19:05 Dose: 137 mcg Admin: 08/19/19 19:22 Dose: 137 mcg Admin: 08/18/19 19:40 Dose: 137 mcg Admin: 08/17/19 19:24 Dose: 137 mcg Admin: 08/16/19 19:12 Dose: 137 mcg Admin: 08/15/19 19:16 Dose: 137 mcg Admin: 08/14/19 19:18 Dose: 137 mcg Admin: 08/13/19 19:22 Dose: 137 mcg Admin: 08/12/19 19:09 Dose: 137 mcg Admin: 08/11/19 19:17 Dose: 137 mcg Admin: 08/10/19 19:04 Dose: 137 mcg Admin: 08/09/19 19:33 Dose: 137 mcg Admin: 08/08/19 19:48 Dose: 137 mcg Admin: 08/07/19 19:43 Dose: 137 mcg Admin: 08/06/19 19:32 Dose: 137 mcg Admin: 08/05/19 19:20 Dose: 137 mcg Admin: 08/04/19 19:12 Dose: 137 mcg Admin: 08/03/19 19:38 Dose: 137 mcg Admin: 08/02/19 19:15 Dose: 137 mcg Admin: 08/01/19 19:05 Dose: 137 mcg Admin: 07/31/19 19:29 Dose: 137 mcg Admin: 07/30/19 19:24 Dose: 137 mcg Admin: 07/29/19 19:30 Dose: 137 mcg Admin: 07/28/19 19:15 Dose: 137 mcg Admin: 07/27/19 19:22 Dose: 137 mcg Admin: 07/26/19 19:37 Dose: 137 mcg Admin: 07/25/19 19:48 Dose: 137 mcg Admin: 07/24/19 19:28 Dose: 137 mcg Admin: 07/23/19 19:32 Dose: 137 mcg Admin: 07/22/19 19:27 Dose: 137 mcg Admin: 07/21/19 19:34 Dose: 137 mcg Admin: 07/20/19 19:18 Dose: 137 mcg Admin: 07/19/19 19:19 Dose: 137 mcg Admin: 07/18/19 19:36 Dose: 137 mcg Admin: 07/17/19 19:17 Dose: 137 mcg Admin: 07/16/19 19:40 Dose: 137 mcg Admin: 07/15/19 19:11 Dose: 137 mcg Admin: 07/14/19 19:22 Dose: 137 mcg Admin: 07/13/19 19:21 Dose: 137 mcg Admin: 07/12/19 19:25 Dose: 137 mcg Admin: 07/11/19 19:26 Dose: 137 mcg Admin: 07/10/19 19:25 Dose: 137 mcg Admin: 07/09/19 19:17 Dose: 137 mcg Admin: 07/08/19 19:25 Dose: 137 mcg Admin: 07/07/19 19:16 Dose: 137 mcg Admin: 07/06/19 19:25 Dose: 137 mcg Admin: 07/05/19 19:53 Dose: 137 mcg Admin: 07/04/19 19:23 Dose: 137 mcg Admin: 07/03/19 19:12 Dose: 137 mcg Admin: 07/02/19 19:18 Dose: 137 mcg Admin: 07/01/19 19:19 Dose: 137 mcg Admin: 06/30/19 19:12 Dose: 137 mcg Admin: 06/29/19 19:16 Dose: 137 mcg Admin: 06/28/19 19:07 Dose: 137 mcg Admin: 06/27/19 19:09 Dose: 137 mcg Admin: 06/26/19 19:07 Dose: 137 mcg Admin: 06/25/19 19:25 Dose: 137 mcg Admin: 06/24/19 19:11 Dose: 137 mcg Admin: 06/23/19 19:09 Dose: 137 mcg Admin: 06/22/19 19:17 Dose: 137 mcg Admin: 06/21/19 19:18 Dose: 137 mcg Admin: 06/20/19 19:21 Dose: 137 mcg Admin: 06/19/19 19:15 Dose: 137 mcg Admin: 06/18/19 19:18 Dose: 137 mcg Admin: 06/17/19 19:14 Dose: 137 mcg Admin: 06/16/19 19:08 Dose: 137 mcg Admin: 06/15/19 19:43 Dose: 137 mcg Admin: 06/14/19 19:18 Dose: 137 mcg Admin: 06/13/19 19:18 Dose: 137 mcg Admin: 06/12/19 19:22 Dose: 137 mcg Admin: 06/11/19 19:29 Dose: 137 mcg Admin: 06/10/19 19:15 Dose: 137 mcg Admin: 06/09/19 19:32 Dose: 137 mcg Admin: 06/08/19 19:12 Dose: 137 mcg Admin: 06/07/19 19:13 Dose: 137 mcg Admin: 06/06/19 19:16 Dose: 137 mcg Admin: 06/05/19 19:22 Dose: 137 mcg Admin: 06/04/19 19:20 Dose: 137 mcg Admin: 06/03/19 19:21 Dose: 137 mcg Admin: 06/02/19 19:58 Dose: 137 mcg Admin: 06/01/19 19:24 Dose: 137 mcg Admin: 05/31/19 20:02 Dose: 137 mcg Admin: 05/30/19 19:16 Dose: 137 mcg Admin: 05/29/19 19:08 Dose: 137 mcg Admin: 05/28/19 19:17 Dose: 137 mcg Admin: 05/27/19 19:19 Dose: 137 mcg Admin: 05/26/19 19:49 Dose: 137 mcg Admin: 05/25/19 19:12 Dose: 137 mcg Admin: 05/24/19 19:29 Dose: 137 mcg Bupropion Xl 300mg 1 each PO BEDTIME MIESHA Last Admin: 04/12/20 19:21 Dose: 1 each Admin: 04/11/20 19:37 Dose: 1 each Admin: 04/10/20 19:39 Dose: 1 each Admin: 04/09/20 20:28 Dose: 1 each Admin: 04/08/20 19:36 Dose: 1 each Admin: 04/07/20 19:27 Dose: 1 each Admin: 04/06/20 19:45 Dose: 1 each Admin: 04/05/20 19:11 Dose: 1 each Admin: 04/04/20 19:16 Dose: 1 each Admin: 04/03/20 19:30 Dose: 1 each Admin: 04/02/20 19:00 Dose: 1 each Admin: 04/01/20 19:13 Dose: 1 each Admin: 03/31/20 19:16 Dose: 1 each Admin: 03/30/20 19:21 Dose: 1 each Admin: 03/29/20 19:21 Dose: 1 each Admin: 03/28/20 19:16 Dose: 1 each Admin: 03/27/20 19:35 Dose: 1 each Admin: 03/26/20 19:17 Dose: 1 each Admin: 03/25/20 19:34 Dose: 1 each Admin: 03/24/20 19:16 Dose: 1 each Admin: 03/23/20 19:41 Dose: 1 each Admin: 03/22/20 19:26 Dose: 1 each Admin: 03/21/20 19:23 Dose: 1 each Admin: 03/20/20 19:40 Dose: 1 each Admin: 03/19/20 19:43 Dose: 1 each Admin: 03/18/20 19:24 Dose: 1 each Admin: 03/17/20 19:26 Dose: 1 each Admin: 03/16/20 19:30 Dose: 1 each Admin: 03/15/20 19:24 Dose: 1 each Admin: 03/14/20 19:25 Dose: 1 each Admin: 03/13/20 19:21 Dose: 1 each Admin: 03/12/20 19:52 Dose: 1 each Admin: 03/11/20 19:33 Dose: 1 each Admin: 03/10/20 19:36 Dose: 1 each Admin: 03/09/20 19:25 Dose: 1 each Admin: 03/08/20 19:12 Dose: 1 each Admin: 03/07/20 19:49 Dose: 1 each Admin: 03/06/20 19:28 Dose: 1 each Admin: 03/05/20 19:17 Dose: 1 each Admin: 03/04/20 19:20 Dose: 1 each Admin: 03/03/20 19:16 Dose: 1 each Admin: 03/02/20 19:28 Dose: 1 each Admin: 03/01/20 19:26 Dose: 1 each Admin: 02/29/20 19:21 Dose: 1 each Admin: 02/28/20 19:55 Dose: 1 each Admin: 02/27/20 19:28 Dose: 1 each Admin: 02/26/20 19:50 Dose: 1 each Admin: 02/25/20 19:35 Dose: 1 each Admin: 02/24/20 19:26 Dose: 1 each Admin: 02/23/20 19:43 Dose: 1 each Admin: 02/22/20 19:16 Dose: 1 each Admin: 02/21/20 19:18 Dose: 1 each Admin: 02/20/20 19:35 Dose: 1 each Admin: 02/19/20 19:30 Dose: 1 each Admin: 02/18/20 19:36 Dose: 1 each Admin: 02/17/20 19:41 Dose: 1 each Admin: 02/16/20 19:37 Dose: 1 each Admin: 02/15/20 19:09 Dose: 1 each Admin: 02/14/20 19:17 Dose: 1 each Admin: 02/13/20 19:10 Dose: 1 each Admin: 02/12/20 19:20 Dose: 1 each Admin: 02/11/20 19:18 Dose: 1 each Admin: 02/10/20 19:28 Dose: 1 each Admin: 02/09/20 19:48 Dose: 1 each Admin: 02/08/20 19:39 Dose: 1 each Admin: 02/07/20 19:38 Dose: 1 each Admin: 02/06/20 19:35 Dose: 1 each Admin: 02/05/20 19:12 Dose: 1 each Admin: 02/04/20 19:45 Dose: 1 each Admin: 02/03/20 19:35 Dose: 1 each Admin: 02/02/20 19:24 Dose: 1 each Admin: 02/01/20 19:39 Dose: 1 each Admin: 01/31/20 19:34 Dose: 1 each Admin: 01/30/20 19:37 Dose: 1 each Admin: 01/29/20 19:38 Dose: 1 each Admin: 01/28/20 19:54 Dose: 1 each Admin: 01/27/20 19:13 Dose: 1 each Admin: 01/26/20 19:33 Dose: 1 each Admin: 01/25/20 19:33 Dose: 1 each Admin: 01/24/20 20:02 Dose: 1 each Admin: 01/23/20 19:21 Dose: 1 each Admin: 01/22/20 19:15 Dose: 1 each Admin: 01/21/20 19:27 Dose: 1 each Admin: 01/20/20 19:27 Dose: 1 each Admin: 01/19/20 19:20 Dose: 1 each Admin: 01/18/20 19:31 Dose: 1 each Admin: 01/17/20 19:53 Dose: 1 each Admin: 01/16/20 20:09 Dose: 1 each Admin: 01/15/20 19:53 Dose: 1 each Admin: 01/14/20 19:34 Dose: 1 each Admin: 01/13/20 19:15 Dose: 1 each Admin: 01/12/20 19:27 Dose: 1 each Admin: 01/11/20 19:40 Dose: 1 each Admin: 01/10/20 19:35 Dose: 1 each Admin: 01/09/20 19:19 Dose: 1 each Admin: 01/08/20 19:21 Dose: 1 each Admin: 01/07/20 19:18 Dose: 1 each Admin: 01/06/20 19:45 Dose: 1 each Admin: 01/05/20 19:58 Dose: 1 each Admin: 01/04/20 19:47 Dose: 1 each Admin: 01/03/20 20:15 Dose: 1 each Admin: 01/02/20 19:22 Dose: 1 each Admin: 01/01/20 19:51 Dose: 1 each Admin: 12/31/19 19:51 Dose: 1 each Admin: 12/30/19 19:47 Dose: 1 each Admin: 12/29/19 19:46 Dose: 1 each Admin: 12/28/19 19:35 Dose: 1 each Admin: 12/27/19 19:22 Dose: 1 each Admin: 12/26/19 19:23 Dose: 1 each Admin: 12/25/19 19:12 Dose: 1 each Admin: 12/24/19 19:17 Dose: 1 each Admin: 12/23/19 19:18 Dose: 1 each Admin: 12/22/19 19:11 Dose: 1 each Admin: 12/21/19 19:44 Dose: 1 each Potassium Chloride (Klor-Con M20) 40 meq PO QID MIESHA Last Admin: 04/13/20 07:25 Dose: 40 meq Admin: 04/12/20 19:21 Dose: 40 meq Admin: 04/12/20 16:46 Dose: 40 meq Admin: 04/12/20 11:22 Dose: 40 meq Admin: 04/12/20 07:46 Dose: 40 meq Admin: 04/11/20 19:36 Dose: 40 meq Admin: 04/11/20 15:08 Dose: 40 meq Admin: 04/11/20 11:42 Dose: 40 meq Admin: 04/11/20 08:11 Dose: 40 meq Admin: 04/10/20 19:38 Dose: 40 meq Admin: 04/10/20 17:02 Dose: 40 meq Admin: 04/10/20 11:27 Dose: 40 meq Admin: 04/10/20 07:46 Dose: 40 meq Admin: 04/09/20 20:27 Dose: 40 meq Admin: 04/09/20 16:38 Dose: 40 meq Admin: 04/09/20 11:25 Dose: 40 meq Admin: 04/09/20 07:23 Dose: 40 meq Admin: 04/08/20 19:36 Dose: 40 meq Admin: 04/08/20 17:51 Dose: 40 meq Admin: 04/08/20 11:16 Dose: 40 meq Admin: 04/08/20 07:23 Dose: 40 meq Admin: 04/07/20 19:26 Dose: 40 meq Admin: 04/07/20 16:19 Dose: 40 meq Admin: 04/07/20 11:32 Dose: 40 meq Admin: 04/07/20 08:17 Dose: 40 meq Admin: 04/06/20 19:45 Dose: 40 meq Admin: 04/06/20 16:11 Dose: 40 meq Admin: 04/06/20 11:27 Dose: 40 meq Admin: 04/06/20 08:08 Dose: 40 meq Admin: 04/05/20 19:11 Dose: 40 meq Admin: 04/05/20 15:05 Dose: 40 meq Admin: 04/05/20 11:33 Dose: 40 meq Admin: 04/05/20 07:47 Dose: 40 meq Admin: 04/04/20 19:16 Dose: 40 meq Admin: 04/04/20 15:26 Dose: 40 meq Admin: 04/04/20 11:14 Dose: 40 meq Admin: 04/04/20 08:33 Dose: 40 meq Admin: 04/03/20 19:29 Dose: 40 meq Admin: 04/03/20 15:11 Dose: 40 meq Admin: 04/03/20 11:13 Dose: 40 meq Admin: 04/03/20 07:45 Dose: 40 meq Admin: 04/02/20 18:59 Dose: 40 meq Admin: 04/02/20 15:12 Dose: 40 meq Admin: 04/02/20 11:11 Dose: 40 meq Admin: 04/02/20 07:50 Dose: 40 meq Admin: 04/01/20 19:13 Dose: 40 meq Admin: 04/01/20 16:29 Dose: 40 meq Admin: 04/01/20 11:41 Dose: 40 meq Admin: 04/01/20 07:54 Dose: 40 meq Admin: 03/31/20 19:15 Dose: 40 meq Admin: 03/31/20 15:34 Dose: 40 meq Admin: 03/31/20 11:36 Dose: 40 meq Admin: 03/31/20 08:20 Dose: 40 meq Admin: 03/30/20 19:22 Dose: 40 meq Admin: 03/30/20 16:11 Dose: 40 meq Admin: 03/30/20 11:22 Dose: 40 meq Admin: 03/30/20 08:37 Dose: 40 meq Admin: 03/29/20 19:20 Dose: 40 meq Admin: 03/29/20 15:06 Dose: 40 meq Admin: 03/29/20 11:29 Dose: 40 meq Admin: 03/29/20 07:22 Dose: 40 meq Admin: 03/28/20 19:15 Dose: 40 meq Admin: 03/28/20 15:33 Dose: 40 meq Admin: 03/28/20 11:20 Dose: 40 meq Admin: 03/28/20 07:31 Dose: 40 meq Admin: 03/27/20 19:34 Dose: 40 meq Admin: 03/27/20 17:08 Dose: 40 meq Admin: 03/27/20 12:06 Dose: 40 meq Admin: 03/27/20 08:18 Dose: 40 meq Admin: 03/26/20 19:16 Dose: 40 meq Admin: 03/26/20 15:03 Dose: 40 meq Admin: 03/26/20 11:17 Dose: 40 meq Admin: 03/26/20 07:40 Dose: 40 meq Admin: 03/25/20 19:33 Dose: 40 meq Admin: 03/25/20 15:06 Dose: 40 meq Admin: 03/25/20 11:23 Dose: 40 meq Admin: 03/25/20 07:26 Dose: 40 meq Admin: 03/24/20 19:15 Dose: 40 meq Admin: 03/24/20 15:12 Dose: 40 meq Admin: 03/24/20 11:07 Dose: 40 meq Admin: 03/24/20 08:01 Dose: 40 meq Admin: 03/23/20 19:40 Dose: 40 meq Admin: 03/23/20 16:57 Dose: 40 meq Admin: 03/23/20 11:41 Dose: 40 meq Admin: 03/23/20 08:04 Dose: 40 meq Admin: 03/22/20 19:25 Dose: 40 meq Admin: 03/22/20 17:00 Dose: 40 meq Admin: 03/22/20 11:40 Dose: 40 meq Admin: 03/22/20 07:36 Dose: 40 meq Admin: 03/21/20 19:23 Dose: 40 meq Admin: 03/21/20 15:31 Dose: 40 meq Admin: 03/21/20 11:28 Dose: 40 meq Admin: 03/21/20 08:08 Dose: 40 meq Admin: 03/20/20 19:40 Dose: 40 meq Admin: 03/20/20 16:58 Dose: 40 meq Admin: 03/20/20 11:18 Dose: 40 meq Admin: 03/20/20 07:41 Dose: 40 meq Admin: 03/19/20 19:42 Dose: 40 meq Admin: 03/19/20 16:29 Dose: 40 meq Admin: 03/19/20 12:01 Dose: 40 meq Admin: 03/19/20 08:04 Dose: 40 meq Admin: 03/18/20 19:23 Dose: 40 meq Admin: 03/18/20 15:54 Dose: 40 meq Admin: 03/18/20 11:35 Dose: 40 meq Admin: 03/18/20 08:28 Dose: 40 meq Admin: 03/17/20 19:25 Dose: 40 meq Admin: 03/17/20 15:57 Dose: 40 meq Admin: 03/17/20 12:49 Dose: 40 meq Admin: 03/17/20 08:04 Dose: 40 meq Admin: 03/16/20 19:29 Dose: 40 meq Admin: 03/16/20 15:54 Dose: 40 meq Admin: 03/16/20 11:36 Dose: 40 meq Admin: 03/16/20 08:35 Dose: 40 meq Admin: 03/15/20 19:23 Dose: 40 meq Admin: 03/15/20 15:44 Dose: 40 meq Admin: 03/15/20 11:43 Dose: 40 meq Admin: 03/15/20 08:20 Dose: 40 meq Admin: 03/14/20 19:25 Dose: 40 meq Admin: 03/14/20 15:22 Dose: 40 meq Admin: 03/14/20 11:39 Dose: 40 meq Admin: 03/14/20 08:17 Dose: 40 meq Admin: 03/13/20 19:21 Dose: 40 meq Admin: 03/13/20 16:02 Dose: 40 meq Admin: 03/13/20 11:47 Dose: 40 meq Admin: 03/13/20 08:33 Dose: 40 meq Admin: 03/12/20 19:51 Dose: 40 meq Admin: 03/12/20 15:35 Dose: 40 meq Admin: 03/12/20 11:42 Dose: 40 meq Admin: 03/12/20 08:19 Dose: 40 meq Admin: 03/11/20 19:32 Dose: 40 meq Admin: 03/11/20 16:55 Dose: 40 meq Admin: 03/11/20 11:53 Dose: 40 meq Admin: 03/11/20 08:44 Dose: 40 meq Admin: 03/10/20 19:35 Dose: 40 meq Admin: 03/10/20 16:09 Dose: 40 meq Admin: 03/10/20 11:35 Dose: 40 meq Admin: 03/10/20 08:14 Dose: 40 meq Admin: 03/09/20 19:25 Dose: 40 meq Admin: 03/09/20 15:22 Dose: 40 meq Admin: 03/09/20 12:09 Dose: 40 meq Admin: 03/09/20 08:26 Dose: 40 meq Admin: 03/08/20 19:12 Dose: 40 meq Admin: 03/08/20 16:51 Dose: 40 meq Admin: 03/08/20 12:38 Dose: 40 meq Admin: 03/08/20 09:18 Dose: 40 meq Admin: 03/07/20 19:48 Dose: 40 meq Admin: 03/07/20 15:25 Dose: 40 meq Admin: 03/07/20 11:37 Dose: 40 meq Admin: 03/07/20 08:15 Dose: 40 meq Admin: 03/06/20 19:27 Dose: 40 meq Admin: 03/06/20 15:26 Dose: 40 meq Admin: 03/06/20 11:15 Dose: 40 meq Admin: 03/06/20 07:52 Dose: 40 meq Admin: 03/05/20 19:17 Dose: 40 meq Admin: 03/05/20 16:53 Dose: 40 meq Admin: 03/05/20 11:55 Dose: 40 meq Admin: 03/05/20 08:08 Dose: 40 meq Admin: 03/04/20 19:19 Dose: 40 meq Admin: 03/04/20 15:09 Dose: 40 meq Admin: 03/04/20 11:23 Dose: 40 meq Admin: 03/04/20 07:30 Dose: 40 meq Admin: 03/03/20 19:16 Dose: 40 meq Admin: 03/03/20 15:22 Dose: 40 meq Admin: 03/03/20 11:21 Dose: 40 meq Admin: 03/03/20 08:18 Dose: 40 meq Admin: 03/02/20 19:27 Dose: 40 meq Admin: 03/02/20 15:43 Dose: 40 meq Admin: 03/02/20 11:29 Dose: 40 meq Admin: 03/02/20 08:36 Dose: 40 meq Admin: 03/01/20 19:26 Dose: 40 meq Admin: 03/01/20 15:37 Dose: 40 meq Admin: 03/01/20 11:37 Dose: 40 meq Admin: 03/01/20 08:25 Dose: 40 meq Admin: 02/29/20 19:20 Dose: 40 meq Admin: 02/29/20 15:12 Dose: 40 meq Admin: 02/29/20 11:17 Dose: 40 meq Admin: 02/29/20 08:02 Dose: 40 meq Admin: 02/28/20 19:55 Dose: 40 meq Admin: 02/28/20 16:34 Dose: 40 meq Admin: 02/28/20 12:15 Dose: 40 meq Admin: 02/28/20 07:59 Dose: 40 meq Admin: 02/27/20 19:28 Dose: 40 meq Admin: 02/27/20 16:35 Dose: 40 meq Admin: 02/27/20 11:55 Dose: 40 meq Admin: 02/27/20 08:15 Dose: 40 meq Admin: 02/26/20 19:50 Dose: 40 meq Admin: 02/26/20 16:33 Dose: 40 meq Admin: 02/26/20 12:03 Dose: 40 meq Admin: 02/26/20 08:21 Dose: 40 meq Admin: 02/25/20 19:34 Dose: 40 meq Admin: 02/25/20 16:07 Dose: 40 meq Admin: 02/25/20 11:18 Dose: 40 meq Admin: 02/25/20 07:55 Dose: 40 meq Admin: 02/24/20 19:25 Dose: 40 meq Admin: 02/24/20 15:57 Dose: 40 meq Admin: 02/24/20 11:59 Dose: 40 meq Admin: 02/24/20 08:24 Dose: 40 meq Admin: 02/23/20 19:42 Dose: 40 meq Admin: 02/23/20 16:45 Dose: 40 meq Admin: 02/23/20 11:27 Dose: 40 meq Admin: 02/23/20 08:29 Dose: 40 meq Admin: 02/22/20 19:15 Dose: 40 meq Admin: 02/22/20 15:08 Dose: 40 meq Admin: 02/22/20 11:47 Dose: 40 meq Admin: 02/22/20 08:17 Dose: 40 meq Admin: 02/21/20 19:18 Dose: 40 meq Admin: 02/21/20 15:19 Dose: 40 meq Admin: 02/21/20 11:51 Dose: 40 meq Admin: 02/21/20 07:58 Dose: 40 meq Admin: 02/20/20 19:34 Dose: 40 meq Admin: 02/20/20 16:32 Dose: 40 meq Admin: 02/20/20 11:48 Dose: 40 meq Admin: 02/20/20 08:12 Dose: 40 meq Admin: 02/19/20 19:30 Dose: 40 meq Admin: 02/19/20 16:54 Dose: 40 meq Admin: 02/19/20 12:06 Dose: 40 meq Admin: 02/19/20 08:17 Dose: 40 meq Admin: 02/18/20 19:35 Dose: 40 meq Admin: 02/18/20 15:40 Dose: 40 meq Admin: 02/18/20 11:30 Dose: 40 meq Admin: 02/18/20 08:15 Dose: 40 meq Admin: 02/17/20 19:40 Dose: 40 meq Admin: 02/17/20 16:20 Dose: 40 meq Admin: 02/17/20 11:41 Dose: 40 meq Admin: 02/17/20 08:29 Dose: 40 meq Admin: 02/16/20 19:36 Dose: 40 meq Admin: 02/16/20 15:21 Dose: 40 meq Admin: 02/16/20 11:24 Dose: 40 meq Admin: 02/16/20 08:23 Dose: 40 meq Admin: 02/15/20 19:09 Dose: 40 meq Admin: 02/15/20 15:31 Dose: 40 meq Admin: 02/15/20 11:02 Dose: 40 meq Admin: 02/15/20 07:00 Dose: 40 meq Admin: 02/14/20 19:16 Dose: 40 meq Admin: 02/14/20 16:47 Dose: 40 meq Admin: 02/14/20 11:10 Dose: 40 meq Admin: 02/14/20 08:27 Dose: 40 meq Admin: 02/13/20 19:10 Dose: 40 meq Admin: 02/13/20 15:10 Dose: 40 meq Admin: 02/13/20 11:18 Dose: 40 meq Admin: 02/13/20 07:49 Dose: 40 meq Admin: 02/12/20 19:20 Dose: 40 meq Admin: 02/12/20 15:12 Dose: 40 meq Admin: 02/12/20 11:13 Dose: 40 meq Admin: 02/12/20 07:07 Dose: 40 meq Admin: 02/11/20 19:17 Dose: 40 meq Admin: 02/11/20 14:59 Dose: 40 meq Admin: 02/11/20 11:16 Dose: 40 meq Admin: 02/11/20 07:16 Dose: 40 meq Admin: 02/10/20 19:27 Dose: 40 meq Admin: 02/10/20 16:00 Dose: 40 meq Admin: 02/10/20 11:16 Dose: 40 meq Admin: 02/10/20 08:32 Dose: 40 meq Admin: 02/09/20 19:48 Dose: 40 meq Admin: 02/09/20 16:37 Dose: 40 meq Admin: 02/09/20 11:31 Dose: 40 meq Admin: 02/09/20 08:39 Dose: 40 meq Admin: 02/08/20 19:39 Dose: 40 meq Admin: 02/08/20 15:02 Dose: 40 meq Admin: 02/08/20 11:17 Dose: 40 meq Admin: 02/08/20 07:13 Dose: 40 meq Admin: 02/07/20 19:38 Dose: 40 meq Admin: 02/07/20 15:15 Dose: 40 meq Admin: 02/07/20 11:54 Dose: 40 meq Admin: 02/07/20 08:27 Dose: 40 meq Admin: 02/06/20 19:35 Dose: 40 meq Admin: 02/06/20 16:25 Dose: 40 meq Admin: 02/06/20 11:37 Dose: 40 meq Admin: 02/06/20 08:10 Dose: 40 meq Admin: 02/05/20 19:11 Dose: 40 meq Admin: 02/05/20 16:20 Dose: 40 meq Admin: 02/05/20 12:04 Dose: 40 meq Admin: 02/05/20 08:16 Dose: 40 meq Admin: 02/04/20 19:44 Dose: 40 meq Admin: 02/04/20 15:50 Dose: 40 meq Admin: 02/04/20 11:35 Dose: 40 meq Admin: 02/04/20 09:05 Dose: 40 meq Admin: 02/03/20 19:35 Dose: 40 meq Admin: 02/03/20 15:50 Dose: 40 meq Admin: 02/03/20 11:24 Dose: 40 meq Admin: 02/03/20 07:28 Dose: 40 meq Admin: 02/02/20 19:23 Dose: 40 meq Admin: 02/02/20 15:25 Dose: 40 meq Admin: 02/02/20 11:15 Dose: 40 meq Admin: 02/02/20 07:06 Dose: 40 meq Admin: 02/01/20 19:38 Dose: 40 meq Admin: 02/01/20 15:29 Dose: 40 meq Admin: 02/01/20 11:25 Dose: 40 meq Admin: 02/01/20 07:07 Dose: 40 meq Admin: 01/31/20 19:33 Dose: 40 meq Admin: 01/31/20 15:43 Dose: 40 meq Admin: 01/31/20 11:26 Dose: 40 meq Admin: 01/31/20 07:06 Dose: 40 meq Admin: 01/30/20 19:35 Dose: 40 meq Admin: 01/30/20 15:45 Dose: 40 meq Admin: 01/30/20 11:43 Dose: 40 meq Admin: 01/30/20 08:06 Dose: 40 meq Admin: 01/29/20 19:37 Dose: 40 meq Admin: 01/29/20 16:37 Dose: 40 meq Admin: 01/29/20 11:43 Dose: 40 meq Admin: 01/29/20 08:00 Dose: 40 meq Admin: 01/28/20 19:53 Dose: 40 meq Admin: 01/28/20 15:49 Dose: 40 meq Admin: 01/28/20 11:58 Dose: 40 meq Admin: 01/28/20 07:54 Dose: 40 meq Admin: 01/27/20 19:11 Dose: 40 meq Admin: 01/27/20 15:47 Dose: 40 meq Admin: 01/27/20 11:09 Dose: 40 meq Admin: 01/27/20 07:05 Dose: 40 meq Admin: 01/26/20 19:32 Dose: 40 meq Admin: 01/26/20 16:08 Dose: 40 meq Admin: 01/26/20 11:39 Dose: 40 meq Admin: 01/26/20 07:31 Dose: 40 meq Admin: 01/25/20 19:34 Dose: 40 meq Admin: 01/25/20 15:21 Dose: 40 meq Admin: 01/25/20 11:04 Dose: 40 meq Admin: 01/25/20 07:11 Dose: 40 meq Admin: 01/24/20 20:02 Dose: 40 meq Admin: 01/24/20 15:07 Dose: 40 meq Admin: 01/24/20 11:13 Dose: 40 meq Admin: 01/24/20 07:55 Dose: 40 meq Admin: 01/23/20 19:22 Dose: 40 meq Admin: 01/23/20 15:03 Dose: 40 meq Admin: 01/23/20 11:06 Dose: 40 meq Admin: 01/23/20 07:09 Dose: 40 meq Admin: 01/22/20 19:20 Dose: 40 meq Admin: 01/22/20 15:04 Dose: 40 meq Admin: 01/22/20 11:20 Dose: 40 meq Admin: 01/22/20 07:14 Dose: 40 meq Admin: 01/21/20 19:27 Dose: 40 meq Admin: 01/21/20 16:33 Dose: 40 meq Admin: 01/21/20 11:25 Dose: 40 meq Admin: 01/21/20 07:59 Dose: 40 meq Admin: 01/20/20 19:26 Dose: 40 meq Admin: 01/20/20 17:33 Dose: 40 meq Admin: 01/20/20 11:14 Dose: 40 meq Admin: 01/20/20 07:59 Dose: 40 meq Admin: 01/19/20 19:18 Dose: 40 meq Admin: 01/19/20 16:23 Dose: 40 meq Admin: 01/19/20 11:00 Dose: 40 meq Admin: 01/19/20 07:54 Dose: 40 meq Admin: 01/18/20 19:31 Dose: 40 meq Admin: 01/18/20 15:06 Dose: 40 meq Admin: 01/18/20 11:21 Dose: 40 meq Admin: 01/18/20 08:05 Dose: 40 meq Admin: 01/17/20 19:53 Dose: 40 meq Admin: 01/17/20 16:50 Dose: 40 meq Admin: 01/17/20 11:10 Dose: 40 meq Admin: 01/17/20 08:06 Dose: 40 meq Admin: 01/16/20 20:09 Dose: 40 meq Admin: 01/16/20 16:01 Dose: 40 meq Admin: 01/16/20 11:26 Dose: 40 meq Admin: 01/16/20 08:19 Dose: 40 meq Admin: 01/15/20 19:52 Dose: 40 meq Admin: 01/15/20 15:50 Dose: 40 meq Admin: 01/15/20 12:00 Dose: 40 meq Admin: 01/15/20 08:17 Dose: 40 meq Admin: 01/14/20 19:34 Dose: 40 meq Admin: 01/14/20 15:53 Dose: 40 meq Admin: 01/14/20 11:30 Dose: 40 meq Admin: 01/14/20 08:08 Dose: 40 meq Admin: 01/13/20 19:15 Dose: 40 meq Admin: 01/13/20 16:38 Dose: 40 meq Admin: 01/13/20 11:03 Dose: 40 meq Admin: 01/13/20 08:20 Dose: 40 meq Admin: 01/12/20 19:28 Dose: 40 meq Admin: 01/12/20 16:16 Dose: 40 meq Admin: 01/12/20 11:35 Dose: 40 meq Admin: 01/12/20 08:16 Dose: 40 meq Admin: 01/11/20 19:39 Dose: 40 meq Admin: 01/11/20 17:28 Dose: 40 meq Admin: 01/11/20 11:33 Dose: 40 meq Admin: 01/11/20 07:52 Dose: 40 meq Admin: 01/10/20 19:34 Dose: 40 meq Admin: 01/10/20 16:01 Dose: 40 meq Admin: 01/10/20 11:52 Dose: 40 meq Admin: 01/10/20 08:31 Dose: 40 meq Admin: 01/09/20 19:18 Dose: 40 meq Admin: 01/09/20 16:01 Dose: 40 meq Admin: 01/09/20 11:03 Dose: 40 meq Admin: 01/09/20 08:08 Dose: 40 meq Admin: 01/08/20 19:21 Dose: 40 meq Admin: 01/08/20 15:59 Dose: 40 meq Admin: 01/08/20 11:22 Dose: 40 meq Admin: 01/08/20 08:11 Dose: 40 meq Admin: 01/07/20 19:17 Dose: 40 meq Admin: 01/07/20 15:40 Dose: 40 meq Admin: 01/07/20 11:24 Dose: 40 meq Admin: 01/07/20 08:12 Dose: 40 meq Admin: 01/06/20 19:45 Dose: 40 meq Admin: 01/06/20 17:11 Dose: 40 meq Admin: 01/06/20 12:01 Dose: 40 meq Admin: 01/06/20 08:22 Dose: 40 meq Admin: 01/05/20 19:57 Dose: 40 meq Admin: 01/05/20 16:13 Dose: 40 meq Admin: 01/05/20 12:04 Dose: 40 meq Admin: 01/05/20 08:00 Dose: 40 meq Admin: 01/04/20 19:46 Dose: 40 meq Admin: 01/04/20 15:55 Dose: 40 meq Admin: 01/04/20 11:28 Dose: Not Given Admin: 01/04/20 07:53 Dose: 40 meq Admin: 01/03/20 20:14 Dose: 40 meq Admin: 01/03/20 16:00 Dose: Not Given Admin: 01/03/20 12:01 Dose: 40 meq Admin: 01/03/20 08:12 Dose: 40 meq Admin: 01/02/20 19:21 Dose: 40 meq Admin: 01/02/20 15:18 Dose: 40 meq Admin: 01/02/20 11:36 Dose: 40 meq Admin: 01/02/20 07:58 Dose: 40 meq Admin: 01/01/20 19:50 Dose: 40 meq Admin: 01/01/20 15:12 Dose: 40 meq Admin: 01/01/20 11:15 Dose: 40 meq Admin: 01/01/20 07:12 Dose: 40 meq Admin: 12/31/19 19:50 Dose: 40 meq Admin: 12/31/19 16:07 Dose: 40 meq Admin: 12/31/19 12:02 Dose: 40 meq Admin: 12/31/19 08:05 Dose: 40 meq Admin: 12/30/19 19:46 Dose: 40 meq Admin: 12/30/19 16:21 Dose: 40 meq Admin: 12/30/19 11:27 Dose: 40 meq Admin: 12/30/19 08:01 Dose: 40 meq Admin: 12/29/19 19:46 Dose: 40 meq Admin: 12/29/19 15:59 Dose: 40 meq Admin: 12/29/19 11:11 Dose: 40 meq Admin: 12/29/19 08:18 Dose: 40 meq Admin: 12/28/19 19:34 Dose: 40 meq Admin: 12/28/19 15:15 Dose: 40 meq Admin: 12/28/19 11:16 Dose: 40 meq Admin: 12/28/19 07:59 Dose: 40 meq Admin: 12/27/19 19:17 Dose: 40 meq Admin: 12/27/19 15:30 Dose: 40 meq Admin: 12/27/19 11:29 Dose: 40 meq Admin: 12/27/19 07:55 Dose: 40 meq Admin: 12/26/19 19:22 Dose: 40 meq Admin: 12/26/19 17:11 Dose: 40 meq Admin: 12/26/19 12:11 Dose: 40 meq Admin: 12/26/19 12:11 Dose: 40 meq Admin: 12/26/19 07:56 Dose: 40 meq Admin: 12/25/19 19:11 Dose: 40 meq Admin: 12/25/19 15:18 Dose: 40 meq Admin: 12/25/19 11:54 Dose: 40 meq Admin: 12/25/19 07:52 Dose: 40 meq Admin: 12/24/19 19:18 Dose: 40 meq Admin: 12/24/19 15:06 Dose: 40 meq Admin: 12/24/19 11:42 Dose: 40 meq Admin: 12/24/19 07:51 Dose: 40 meq Admin: 12/23/19 19:19 Dose: 40 meq Admin: 12/23/19 16:02 Dose: 40 meq Admin: 12/23/19 11:21 Dose: 40 meq Admin: 12/23/19 08:05 Dose: 40 meq Admin: 12/22/19 19:10 Dose: 40 meq Admin: 12/22/19 15:15 Dose: 40 meq Admin: 12/22/19 11:48 Dose: 40 meq Admin: 12/22/19 07:03 Dose: 40 meq Admin: 12/21/19 19:43 Dose: 40 meq Simvastatin (Zocor) 10 mg PO BEDTIME MIESHA Last Admin: 04/12/20 19:22 Dose: 10 mg Admin: 04/11/20 19:37 Dose: 10 mg Admin: 04/10/20 19:38 Dose: 10 mg Admin: 04/09/20 20:28 Dose: 10 mg Admin: 04/08/20 19:36 Dose: 10 mg Admin: 04/07/20 19:27 Dose: 10 mg Admin: 04/06/20 19:45 Dose: 10 mg Admin: 04/05/20 19:11 Dose: 10 mg Admin: 04/04/20 19:16 Dose: 10 mg Admin: 04/03/20 19:30 Dose: 10 mg Admin: 04/02/20 19:00 Dose: 10 mg Admin: 04/01/20 19:13 Dose: 10 mg Admin: 03/31/20 19:16 Dose: 10 mg Admin: 03/30/20 19:21 Dose: 10 mg Admin: 03/29/20 19:21 Dose: 10 mg Admin: 03/28/20 19:17 Dose: 10 mg Admin: 03/27/20 19:35 Dose: 10 mg Admin: 03/26/20 19:17 Dose: 10 mg Admin: 03/25/20 19:34 Dose: 10 mg Admin: 03/24/20 19:16 Dose: 10 mg Admin: 03/23/20 19:42 Dose: 10 mg Admin: 03/22/20 19:26 Dose: 10 mg Admin: 03/21/20 19:24 Dose: 10 mg Admin: 03/20/20 19:40 Dose: 10 mg Admin: 03/19/20 19:43 Dose: 10 mg Admin: 03/18/20 19:25 Dose: 10 mg Admin: 03/17/20 19:26 Dose: 10 mg Admin: 03/16/20 19:30 Dose: 10 mg Admin: 03/15/20 19:24 Dose: 10 mg Admin: 03/14/20 19:26 Dose: 10 mg Admin: 03/13/20 19:21 Dose: 10 mg Admin: 03/12/20 19:52 Dose: 10 mg Admin: 03/11/20 19:33 Dose: 10 mg Admin: 03/10/20 19:36 Dose: 10 mg Admin: 03/09/20 19:26 Dose: 10 mg Admin: 03/08/20 19:12 Dose: 10 mg Admin: 03/07/20 19:49 Dose: 10 mg Admin: 03/06/20 19:28 Dose: 10 mg Admin: 03/05/20 19:17 Dose: 10 mg Admin: 03/04/20 19:20 Dose: 10 mg Admin: 03/03/20 19:16 Dose: 10 mg Admin: 03/02/20 19:28 Dose: 10 mg Admin: 03/01/20 19:27 Dose: 10 mg Admin: 02/29/20 19:21 Dose: 10 mg Admin: 02/28/20 19:55 Dose: 10 mg Admin: 02/27/20 19:28 Dose: 10 mg Admin: 02/26/20 19:50 Dose: 10 mg Admin: 02/25/20 19:35 Dose: 10 mg Admin: 02/24/20 19:26 Dose: 10 mg Admin: 02/23/20 19:43 Dose: 10 mg Admin: 02/22/20 19:16 Dose: 10 mg Admin: 02/21/20 19:18 Dose: 10 mg Admin: 02/20/20 19:35 Dose: 10 mg Admin: 02/19/20 19:30 Dose: 10 mg Admin: 02/18/20 19:36 Dose: 10 mg Admin: 02/17/20 19:41 Dose: 10 mg Admin: 02/16/20 19:37 Dose: 10 mg Admin: 02/15/20 19:10 Dose: 10 mg Admin: 02/14/20 19:17 Dose: 10 mg Admin: 02/13/20 19:10 Dose: 10 mg Admin: 02/12/20 19:20 Dose: 10 mg Admin: 02/11/20 19:18 Dose: 10 mg Admin: 02/10/20 19:28 Dose: 10 mg Admin: 02/09/20 19:48 Dose: 10 mg Admin: 02/08/20 19:40 Dose: 10 mg Admin: 02/07/20 19:38 Dose: 10 mg Admin: 02/06/20 19:36 Dose: 10 mg Admin: 02/05/20 19:13 Dose: 10 mg Admin: 02/04/20 19:46 Dose: 10 mg Admin: 02/03/20 19:35 Dose: 10 mg Admin: 02/02/20 19:24 Dose: 10 mg Admin: 02/01/20 19:39 Dose: 10 mg Admin: 01/31/20 19:34 Dose: 10 mg Admin: 01/30/20 19:37 Dose: 10 mg Admin: 01/29/20 19:38 Dose: 10 mg Admin: 01/28/20 19:54 Dose: 10 mg Admin: 01/27/20 19:13 Dose: 10 mg Admin: 01/26/20 19:33 Dose: 10 mg Admin: 01/25/20 19:33 Dose: 10 mg Admin: 01/24/20 20:02 Dose: 10 mg Admin: 01/23/20 19:21 Dose: 10 mg Admin: 01/22/20 19:15 Dose: 10 mg Admin: 01/21/20 19:27 Dose: 10 mg Admin: 01/20/20 19:27 Dose: 10 mg Admin: 01/19/20 19:20 Dose: 10 mg Admin: 01/18/20 19:31 Dose: 10 mg Admin: 01/17/20 19:53 Dose: 10 mg Admin: 01/16/20 20:08 Dose: 10 mg Admin: 01/15/20 19:52 Dose: 10 mg Admin: 01/14/20 19:34 Dose: 10 mg Admin: 01/13/20 19:16 Dose: 10 mg Admin: 01/12/20 19:28 Dose: 10 mg Admin: 01/11/20 19:40 Dose: 10 mg Admin: 01/10/20 19:35 Dose: 10 mg Admin: 01/09/20 19:19 Dose: 10 mg Admin: 01/08/20 19:21 Dose: 10 mg Admin: 01/07/20 19:18 Dose: 10 mg Admin: 01/06/20 19:45 Dose: 10 mg Admin: 01/05/20 19:58 Dose: 10 mg Admin: 01/04/20 19:48 Dose: 10 mg Admin: 01/03/20 20:16 Dose: 10 mg Admin: 01/02/20 19:22 Dose: 10 mg Admin: 01/01/20 19:51 Dose: 10 mg Admin: 12/31/19 19:51 Dose: 10 mg Admin: 12/30/19 19:48 Dose: 10 mg Admin: 12/29/19 19:47 Dose: 10 mg Admin: 12/28/19 19:36 Dose: 10 mg Admin: 12/27/19 19:22 Dose: 10 mg Admin: 12/26/19 19:23 Dose: 10 mg Admin: 12/25/19 19:12 Dose: 10 mg Admin: 12/24/19 19:17 Dose: 10 mg Admin: 12/23/19 19:18 Dose: 10 mg Admin: 12/22/19 19:12 Dose: 10 mg Admin: 12/21/19 19:45 Dose: 10 mg Admin: 12/20/19 19:27 Dose: 10 mg Admin: 12/19/19 19:27 Dose: 10 mg Admin: 12/18/19 19:10 Dose: 10 mg Admin: 12/17/19 19:33 Dose: 10 mg Admin: 12/16/19 19:13 Dose: 10 mg Admin: 12/15/19 19:27 Dose: 10 mg Admin: 12/14/19 19:17 Dose: 10 mg Admin: 12/13/19 19:21 Dose: 10 mg Admin: 12/12/19 19:14 Dose: 10 mg Admin: 12/11/19 19:08 Dose: 10 mg Admin: 12/10/19 19:22 Dose: 10 mg Admin: 12/09/19 19:35 Dose: 10 mg Admin: 12/08/19 19:41 Dose: 10 mg Admin: 12/07/19 19:30 Dose: 10 mg Admin: 12/06/19 19:13 Dose: 10 mg Admin: 12/05/19 19:07 Dose: 10 mg Admin: 12/04/19 19:00 Dose: 10 mg Admin: 12/03/19 19:49 Dose: 10 mg Admin: 12/02/19 19:46 Dose: 10 mg Admin: 12/01/19 19:11 Dose: 10 mg Admin: 11/30/19 19:05 Dose: 10 mg Admin: 11/29/19 19:26 Dose: 10 mg Admin: 11/28/19 19:22 Dose: 10 mg Admin: 11/27/19 19:36 Dose: 10 mg Admin: 11/26/19 19:16 Dose: 10 mg Admin: 11/25/19 19:08 Dose: 10 mg Admin: 11/24/19 19:34 Dose: 10 mg Admin: 11/23/19 19:52 Dose: 10 mg Admin: 11/22/19 19:27 Dose: 10 mg Admin: 11/21/19 19:27 Dose: 10 mg Admin: 11/20/19 19:16 Dose: 10 mg Admin: 11/19/19 19:29 Dose: 10 mg Admin: 11/18/19 19:31 Dose: 10 mg Admin: 11/17/19 19:11 Dose: 10 mg Admin: 11/16/19 19:38 Dose: 10 mg Admin: 11/15/19 19:38 Dose: 10 mg Admin: 11/14/19 19:16 Dose: 10 mg Admin: 11/13/19 19:21 Dose: 10 mg Admin: 11/12/19 19:32 Dose: 10 mg Admin: 11/11/19 19:25 Dose: 10 mg Admin: 11/10/19 19:33 Dose: 10 mg Admin: 11/09/19 19:09 Dose: 10 mg Admin: 11/08/19 19:22 Dose: 10 mg Admin: 11/07/19 19:40 Dose: 10 mg Admin: 11/06/19 19:02 Dose: 10 mg Admin: 11/05/19 19:29 Dose: 10 mg Admin: 11/04/19 19:43 Dose: 10 mg Admin: 11/03/19 20:05 Dose: 10 mg Admin: 11/02/19 19:21 Dose: 10 mg Admin: 11/01/19 19:12 Dose: 10 mg Admin: 10/31/19 19:46 Dose: 10 mg Admin: 10/30/19 19:18 Dose: 10 mg Admin: 10/29/19 19:21 Dose: 10 mg Admin: 10/28/19 19:40 Dose: 10 mg Admin: 10/27/19 19:41 Dose: 10 mg Admin: 10/26/19 19:23 Dose: 10 mg Admin: 10/25/19 19:23 Dose: 10 mg Admin: 10/24/19 19:20 Dose: 10 mg Admin: 10/23/19 19:00 Dose: 10 mg Admin: 10/22/19 19:12 Dose: 10 mg Admin: 10/21/19 19:16 Dose: 10 mg Admin: 10/20/19 19:12 Dose: 10 mg Admin: 10/19/19 19:28 Dose: 10 mg Admin: 10/18/19 19:26 Dose: 10 mg Admin: 10/17/19 19:42 Dose: 10 mg Admin: 10/16/19 19:35 Dose: 10 mg Admin: 10/15/19 19:13 Dose: 10 mg Admin: 10/14/19 19:20 Dose: 10 mg Admin: 10/13/19 19:31 Dose: 10 mg Admin: 10/12/19 19:29 Dose: 10 mg Admin: 10/11/19 19:55 Dose: 10 mg Admin: 10/10/19 19:56 Dose: 10 mg Admin: 10/09/19 19:22 Dose: 10 mg Admin: 10/08/19 19:07 Dose: 10 mg Admin: 10/07/19 19:14 Dose: 10 mg Admin: 10/06/19 19:39 Dose: 10 mg Admin: 10/05/19 19:58 Dose: 10 mg Admin: 10/04/19 19:31 Dose: 10 mg Admin: 10/03/19 19:29 Dose: 10 mg Admin: 10/02/19 19:37 Dose: 10 mg Admin: 10/01/19 19:46 Dose: 10 mg Admin: 09/30/19 19:14 Dose: 10 mg Admin: 09/29/19 19:18 Dose: 10 mg Admin: 09/28/19 19:33 Dose: 10 mg Admin: 09/27/19 19:41 Dose: 10 mg Admin: 09/26/19 19:16 Dose: 10 mg Admin: 09/25/19 19:31 Dose: 10 mg Admin: 09/24/19 19:22 Dose: 10 mg Admin: 09/23/19 19:13 Dose: 10 mg Admin: 09/22/19 20:13 Dose: 10 mg Admin: 09/21/19 19:53 Dose: 10 mg Admin: 09/20/19 19:14 Dose: 10 mg Admin: 09/19/19 19:18 Dose: 10 mg Admin: 09/18/19 19:08 Dose: 10 mg Admin: 09/17/19 19:36 Dose: 10 mg Admin: 09/16/19 19:42 Dose: 10 mg Admin: 09/15/19 19:58 Dose: 10 mg Admin: 09/14/19 19:50 Dose: 10 mg Admin: 09/13/19 19:51 Dose: 10 mg Admin: 09/12/19 19:18 Dose: 10 mg Admin: 09/11/19 19:37 Dose: 10 mg Admin: 09/10/19 19:31 Dose: 10 mg Admin: 09/09/19 19:21 Dose: 10 mg Admin: 09/08/19 19:38 Dose: 10 mg Admin: 09/07/19 19:09 Dose: 10 mg Admin: 09/06/19 19:12 Dose: 10 mg Admin: 09/05/19 19:45 Dose: 10 mg Admin: 09/04/19 19:36 Dose: 10 mg Admin: 09/03/19 19:29 Dose: 10 mg Admin: 09/02/19 19:16 Dose: 10 mg Admin: 09/01/19 19:18 Dose: 10 mg Admin: 08/31/19 19:40 Dose: 10 mg Admin: 08/30/19 19:28 Dose: 10 mg Admin: 08/29/19 19:11 Dose: 10 mg Admin: 08/28/19 19:26 Dose: 10 mg Admin: 08/27/19 19:16 Dose: 10 mg Admin: 08/26/19 19:21 Dose: 10 mg Admin: 08/25/19 19:28 Dose: 10 mg Admin: 08/24/19 19:17 Dose: 10 mg Admin: 08/23/19 19:10 Dose: 10 mg Admin: 08/22/19 19:10 Dose: 10 mg Admin: 08/21/19 19:29 Dose: 10 mg Admin: 08/20/19 19:06 Dose: 10 mg Admin: 08/19/19 19:22 Dose: 10 mg Admin: 08/18/19 19:41 Dose: 10 mg Admin: 08/17/19 19:24 Dose: 10 mg Admin: 08/16/19 19:12 Dose: 10 mg Admin: 08/15/19 19:16 Dose: 10 mg Admin: 08/14/19 19:18 Dose: 10 mg Admin: 08/13/19 19:23 Dose: 10 mg Admin: 08/12/19 19:09 Dose: 10 mg Admin: 08/11/19 19:17 Dose: 10 mg Admin: 08/10/19 19:04 Dose: 10 mg Admin: 08/09/19 19:33 Dose: 10 mg Admin: 08/08/19 19:48 Dose: 10 mg Admin: 08/07/19 19:44 Dose: 10 mg Admin: 08/06/19 19:36 Dose: 10 mg Admin: 08/05/19 19:20 Dose: 10 mg Admin: 08/04/19 19:11 Dose: 10 mg Admin: 08/03/19 19:38 Dose: 10 mg Admin: 08/02/19 19:14 Dose: 10 mg Admin: 08/01/19 19:09 Dose: 10 mg Admin: 07/31/19 19:32 Dose: 10 mg Admin: 07/30/19 19:25 Dose: 10 mg Admin: 07/29/19 19:32 Dose: 10 mg Admin: 07/28/19 19:18 Dose: 10 mg Admin: 07/27/19 19:22 Dose: 10 mg Admin: 07/26/19 19:40 Dose: 10 mg Admin: 07/25/19 19:50 Dose: 10 mg Admin: 07/24/19 19:33 Dose: 10 mg Admin: 07/23/19 19:32 Dose: 10 mg Admin: 07/22/19 19:27 Dose: 10 mg Admin: 07/21/19 19:34 Dose: 10 mg Admin: 07/20/19 19:25 Dose: 10 mg Admin: 07/19/19 19:19 Dose: 10 mg Admin: 07/18/19 19:37 Dose: 10 mg Admin: 07/17/19 19:17 Dose: 10 mg Admin: 07/16/19 19:41 Dose: 10 mg Admin: 07/15/19 19:10 Dose: 10 mg Admin: 07/14/19 19:21 Dose: 10 mg Admin: 07/13/19 19:21 Dose: 10 mg Admin: 07/12/19 19:26 Dose: 10 mg Admin: 07/11/19 19:26 Dose: 10 mg Admin: 07/10/19 19:25 Dose: 10 mg Admin: 07/09/19 19:17 Dose: 10 mg Admin: 07/08/19 19:26 Dose: 10 mg Admin: 07/07/19 19:18 Dose: 10 mg Admin: 07/06/19 19:26 Dose: 10 mg Admin: 07/05/19 19:53 Dose: 10 mg Admin: 07/04/19 19:23 Dose: 10 mg Admin: 07/03/19 19:12 Dose: 10 mg Admin: 07/02/19 19:18 Dose: 10 mg Admin: 07/01/19 19:19 Dose: 10 mg Admin: 06/30/19 19:12 Dose: 10 mg Admin: 06/29/19 19:16 Dose: 10 mg Admin: 06/28/19 19:11 Dose: 10 mg Admin: 06/27/19 19:09 Dose: 10 mg Admin: 06/26/19 19:06 Dose: 10 mg Admin: 06/25/19 19:25 Dose: 10 mg Admin: 06/24/19 19:10 Dose: 10 mg Admin: 06/23/19 19:09 Dose: 10 mg Admin: 06/22/19 19:18 Dose: 10 mg Admin: 06/21/19 19:18 Dose: 10 mg Admin: 06/20/19 19:22 Dose: 10 mg Admin: 06/19/19 19:15 Dose: 10 mg Admin: 06/18/19 19:17 Dose: 10 mg Admin: 06/17/19 19:14 Dose: 10 mg Admin: 06/16/19 19:08 Dose: 10 mg Admin: 06/15/19 19:43 Dose: 10 mg Admin: 06/14/19 19:20 Dose: 10 mg Admin: 06/13/19 19:18 Dose: 10 mg Admin: 06/12/19 19:22 Dose: 10 mg Admin: 06/11/19 19:29 Dose: 10 mg Admin: 06/10/19 19:15 Dose: 10 mg Admin: 06/09/19 19:32 Dose: 10 mg Admin: 06/08/19 19:13 Dose: 10 mg Admin: 06/07/19 19:13 Dose: 10 mg Admin: 06/06/19 19:16 Dose: 10 mg Admin: 06/05/19 19:21 Dose: 10 mg Admin: 06/04/19 19:21 Dose: 10 mg Admin: 06/03/19 19:21 Dose: 10 mg Admin: 06/02/19 19:58 Dose: 10 mg Admin: 06/01/19 19:24 Dose: 10 mg Admin: 05/31/19 20:03 Dose: 10 mg Admin: 05/30/19 19:16 Dose: 10 mg Admin: 05/29/19 19:08 Dose: 10 mg Admin: 05/28/19 19:16 Dose: 10 mg Admin: 05/27/19 19:19 Dose: 10 mg Admin: 05/26/19 19:48 Dose: 10 mg Admin: 05/25/19 19:12 Dose: 10 mg Admin: 05/24/19 19:29 Dose: 10 mg Labs: Laboratory Tests 07/23/19 07/29/19 08/26/19 Range/Units 09:30 09:35 07:20 WBC 8.1 5.1 (4.0-10.2) K/uL RBC 4.33 4.02 (3.77-5.09) M/uL Hgb 14.7 13.3 (11.7-15.5) g/dL Hct 45.9 40.9 (34.0-46.0) % MCV 106.0 H 101.7 H D (84.0-98.0) fL MCH 33.9 H 33.1 (28.2-33.3) pg MCHC 32.0 32.5 (31.7-36.0) g/dL RDW 14.0 13.5 (11.2-14.1) % Plt Count 185 140 L (150-350) K/uL Neut % (Auto) 75.1 68.7 (45.0-80.0) % Lymph % (Auto) 19.0 24.2 (10.0-50.0) % Freeborn % (Auto) 4.7 4.9 (2.0-14.0) % Eos % (Auto) 1.0 1.8 (0.0-5.0) % Baso % (Auto) 0.2 0.4 (0.0-2.0) % Neut # (Auto) 6.10 3.52 (1.40-7.00) K/uL Lymph # (Auto) 1.54 1.24 (0.50-3.50) K/uL Freeborn # (Auto) 0.38 0.25 (0.00-1.00) K/uL Eos # (Auto) 0.08 0.09 (0.00-0.50) K/uL Baso # (Auto) 0.02 0.02 (0.00-0.20) K/uL Sodium (136-145) mmol/L Potassium (3.5-5.1) mmol/L Chloride (98-107) mmol/L Carbon Dioxide (21.0-32.0) mmol/L BUN (7-18) mg/dL Creatinine (0.51-1.17) mg/dL Est Cr Clr Drug Dosing mL/min Estimated GFR (MDRD) mL/min Glucose (74-106) mg/dL Hemoglobin A1c (4.3-5.7) % Calcium (8.5-10.1) mg/dL Phosphorus (2.6-4.7) mg/dL Magnesium (1.8-2.4) mg/dL Total Bilirubin (0.2-1.0) mg/dL AST (15-37) U/L ALT (12-78) U/L Alkaline Phosphatase (46-116) IU/L Creatine Kinase (26-308) U/L Creatine Kinase Index (0.0-2.5) % CK-MB (CK-2) (0.00-3.60) ng/mL Troponin I (0.000-0.056) ng/mL NT-Pro-B Natriuret Pep (0-125) pg/mL Total Protein (6.4-8.2) g/dL Albumin (3.4-5.0) g/dL IgA 116 (87-352) mg/dL Tiss Transglutamin IgG <2 (0-5) U/mL Tiss Transglutamin IgA <2 (0-3) U/mL Gliadin (Deamidat) IgG 2 (0-19) units Gliadin (Deamidat) IgA 11 (0-19) units 08/26/19 08/26/19 12/23/19 Range/Units 07:20 07:20 07:53 WBC (4.0-10.2) K/uL RBC (3.77-5.09) M/uL Hgb (11.7-15.5) g/dL Hct (34.0-46.0) % MCV (84.0-98.0) fL MCH (28.2-33.3) pg MCHC (31.7-36.0) g/dL RDW (11.2-14.1) % Plt Count (150-350) K/uL Neut % (Auto) (45.0-80.0) % Lymph % (Auto) (10.0-50.0) % Freeborn % (Auto) (2.0-14.0) % Eos % (Auto) (0.0-5.0) % Baso % (Auto) (0.0-2.0) % Neut # (Auto) (1.40-7.00) K/uL Lymph # (Auto) (0.50-3.50) K/uL Freeborn # (Auto) (0.00-1.00) K/uL Eos # (Auto) (0.00-0.50) K/uL Baso # (Auto) (0.00-0.20) K/uL Sodium 145 145 (136-145) mmol/L Potassium 4.0 4.3 (3.5-5.1) mmol/L Chloride 110 H 109 H (98-107) mmol/L Carbon Dioxide 28.3 28.4 (21.0-32.0) mmol/L BUN 9 12 (7-18) mg/dL Creatinine 0.55 0.62 (0.51-1.17) mg/dL Est Cr Clr Drug Dosing 104.94 91.96 mL/min Estimated GFR (MDRD) > 60 > 60 mL/min Glucose 112 H 114 H (74-106) mg/dL Hemoglobin A1c 5.4 (4.3-5.7) % Calcium 9.2 9.1 (8.5-10.1) mg/dL Phosphorus 2.9 (2.6-4.7) mg/dL Magnesium 2.0 (1.8-2.4) mg/dL Total Bilirubin 0.3 (0.2-1.0) mg/dL AST 23 (15-37) U/L ALT 35 (12-78) U/L Alkaline Phosphatase 116 (46-116) IU/L Creatine Kinase 58 (26-308) U/L Creatine Kinase Index 1.9 (0.0-2.5) % CK-MB (CK-2) 1.10 (0.00-3.60) ng/mL Troponin I 0.000 (0.000-0.056) ng/mL NT-Pro-B Natriuret Pep 73 104 (0-125) pg/mL Total Protein 5.7 L (6.4-8.2) g/dL Albumin 3.1 L (3.4-5.0) g/dL IgA (87-352) mg/dL Tiss Transglutamin IgG (0-5) U/mL Tiss Transglutamin IgA (0-3) U/mL Gliadin (Deamidat) IgG (0-19) units Gliadin (Deamidat) IgA (0-19) units 12/28/19 12/28/19 12/28/19 Range/Units 07:09 07:09 07:09 WBC 5.4 (4.0-10.2) K/uL RBC 4.11 (3.77-5.09) M/uL Hgb 13.4 (11.7-15.5) g/dL Hct 42.6 (34.0-46.0) % MCV 103.6 H (84.0-98.0) fL MCH 32.6 (28.2-33.3) pg MCHC 31.5 L (31.7-36.0) g/dL RDW 14.3 H (11.2-14.1) % Plt Count 119 L (150-350) K/uL Neut % (Auto) 62.2 (45.0-80.0) % Lymph % (Auto) 29.3 (10.0-50.0) % Freeborn % (Auto) 6.2 (2.0-14.0) % Eos % (Auto) 2.1 (0.0-5.0) % Baso % (Auto) 0.2 (0.0-2.0) % Neut # (Auto) 3.33 (1.40-7.00) K/uL Lymph # (Auto) 1.57 (0.50-3.50) K/uL Freeborn # (Auto) 0.33 (0.00-1.00) K/uL Eos # (Auto) 0.11 (0.00-0.50) K/uL Baso # (Auto) 0.01 (0.00-0.20) K/uL Sodium 146 H (136-145) mmol/L Potassium 4.0 (3.5-5.1) mmol/L Chloride 109 H (98-107) mmol/L Carbon Dioxide 26.4 (21.0-32.0) mmol/L BUN 12 (7-18) mg/dL Creatinine 0.63 (0.51-1.17) mg/dL Est Cr Clr Drug Dosing 90.50 mL/min Estimated GFR (MDRD) > 60 mL/min Glucose 97 (74-106) mg/dL Hemoglobin A1c 5.2 (4.3-5.7) % Calcium 8.8 (8.5-10.1) mg/dL Phosphorus 1.8 L (2.6-4.7) mg/dL Magnesium (1.8-2.4) mg/dL Total Bilirubin 0.4 (0.2-1.0) mg/dL AST 18 (15-37) U/L ALT 21 (12-78) U/L Alkaline Phosphatase 91 (46-116) IU/L Creatine Kinase 97 (26-308) U/L Creatine Kinase Index 1.5 (0.0-2.5) % CK-MB (CK-2) 1.50 (0.00-3.60) ng/mL Troponin I 0.000 (0.000-0.056) ng/mL NT-Pro-B Natriuret Pep 97 (0-125) pg/mL Total Protein 5.6 L (6.4-8.2) g/dL Albumin 3.3 L (3.4-5.0) g/dL IgA (87-352) mg/dL Tiss Transglutamin IgG (0-5) U/mL Tiss Transglutamin IgA (0-3) U/mL Gliadin (Deamidat) IgG (0-19) units Gliadin (Deamidat) IgA (0-19) units Meds: Medications Generic Name Dose Route Start Last Admin Trade Name Freq PRN Reason Stop Dose Admin Acetaminophen 650 mg 05/24/19 10:00 04/12/20 19:22 Tylenol PO 650 mg Q4H PRN Administration Pain Al Hydroxide/Mg Hydroxide 30 ml 09/08/19 09:01 04/13/20 07:28 Mag-Al Plus PO 30 ml Q4H PRN Administration Indigestion Albuterol/Ipratropium 3 ml 05/24/19 09:32 02/28/20 12:14 Duoneb 3.0-0.5 Mg/3 Ml NEB 3 ml Q4HRRT PRN Administration Dyspnea Albuterol/Ipratropium 3 ml 12/21/19 16:00 04/13/20 07:25 Duoneb 3.0-0.5 Mg/3 Ml NEB 3 ml QIDRT MIESHA Administration Calcium Carbonate/Glycine 1,500 mg 11/11/19 08:00 04/13/20 07:26 Tums Extra Strength PO 1,500 mg DAILY MIESHA Administration Cholecalciferol 25 mcg 05/27/19 08:00 04/13/20 07:27 Vitamin D3 PO 25 mcg DAILY MIESHA Administration Citalopram Hydrobromide 20 mg 05/25/19 08:00 04/13/20 07:25 Celexa PO 20 mg QAM MIESHA Administration Cyanocobalamin 1,000 mcg 05/25/19 08:00 04/13/20 07:27 Vitamin B12 PO 1,000 mcg QAM MIESHA Administration Fludrocortisone Acetate 0.1 mg 05/24/19 20:00 04/12/20 19:20 Florinef PO 0.1 mg BEDTIME MIESHA Administration Fludrocortisone Acetate 0.2 mg 05/25/19 08:00 04/13/20 07:25 Florinef PO 0.2 mg QAM MIESHA Administration Furosemide 20 mg 12/21/19 18:00 04/13/20 07:26 Lasix PO 20 mg BID MIESHA Administration Guaifenesin/Dextromethorphan 10 ml 11/14/19 18:36 02/14/20 16:48 Robitussin Dm PO 10 ml Q4H PRN Administration Cough Ibuprofen 600 mg 05/24/19 10:00 04/13/20 07:27 Motrin PO 600 mg Q6H PRN Administration Breakthrough Pain Magnesium Hydroxide 30 ml 11/28/19 09:52 12/18/19 11:36 Milk Of Magnesia PO 30 ml DAILY PRN Administration Constipation Methyl Salicylate 0 gm 05/28/19 22:46 04/12/20 19:23 Icy Hot Cream TOP 1 applic QID PRN Administration Pain (mild 1-3) Niacin 500 mg 05/24/19 18:00 04/13/20 07:26 Niacin PO 500 mg BID MIESHA Administration Levothyroxine Sodium 137 mcg 05/24/19 20:00 04/12/20 19:21 137 Mcg Tablet PO 137 mcg BEDTIME MIESHA Administration Bupropion Xl 300mg 1 each 12/21/19 20:00 04/12/20 19:21 PO 1 each BEDTIME MIESHA Administration Potassium Chloride 40 meq 12/21/19 20:00 04/13/20 07:25 Klor-Con M20 PO 40 meq QID MIESHA Administration Simvastatin 10 mg 05/24/19 20:00 04/12/20 19:22 Zocor PO 10 mg BEDTIME MIESHA Administration Discontinued Medications Generic Name Dose Route Start Last Admin Trade Name Freq PRN Reason Stop Dose Admin Albuterol/Ipratropium 3 ml 05/24/19 20:00 12/21/19 07:23 Duoneb 3.0-0.5 Mg/3 Ml NEB 3 ml BIDRT MIESHA Administration Betamethasone/Clotrimazole 0 gm 07/21/19 20:00 07/23/19 08:20 Lotrisone TOP 1 applic Q12HR MIESHA Administration Bisacodyl 10 mg 09/21/19 18:00 09/21/19 17:41 Dulcolax PO 09/21/19 18:01 10 mg ONETIME ONE Administration Bisacodyl 10 mg 09/22/19 18:00 09/22/19 17:24 Dulcolax PO 09/22/19 18:01 10 mg ONETIME ONE Administration Budesonide 0.5 mg 07/23/19 20:00 08/06/19 19:35 Pulmicort NEB 08/06/19 20:01 0.5 mg Q12HR MIESHA Administration Bupropion HCl 150 mg 05/24/19 20:00 12/20/19 19:28 Wellbutrin PO 150 mg BEDTIME MIESHA Administration Calcium Carbonate/Glycine 500 mg 10/18/19 14:00 11/10/19 07:06 Tums PO 500 mg TID@0800,1400,2000 MIESHA Administration Cholecalciferol 1,000 mcg 05/25/19 08:00 05/26/19 08:49 Vitamin D3 PO Not Given QAM MIESHA Diphenoxylate HCl/Atropine 1 tab 07/23/19 12:33 09/29/19 09:52 Lomotil 0.025-2.5 Mg PO 1 tab TID PRN Administration Diarrhea Furosemide 20 mg 05/25/19 08:00 12/21/19 07:24 Lasix PO 20 mg DAILY MIESHA Administration Furosemide 40 mg 01/13/20 14:58 01/13/20 17:26 Lasix IM 01/13/20 14:59 40 mg NOW ONE Administration Guaifenesin/Dextromethorphan 10 ml 07/15/19 08:00 07/20/19 19:28 Robitussin Dm PO 10 ml Q4H PRN Administration Cough Guaifenesin/Pseudoephedrine HCl 1 tab 07/21/19 20:00 07/31/19 19:30 Mucinex D Er 600-60 Mg PO 07/31/19 20:01 1 tab Q12H MIESHA Administration Influenza Virus Vaccine 60 mcg 09/07/19 14:00 09/07/19 13:37 Fluzone Quad [id number] Syringe IM 09/07/19 14:01 60 mcg .ONCE ONE Administration Magnesium Sulfate 0 gm 02/14/20 08:00 02/21/20 09:16 Epsom Salt TOP Not Given DAILY MIESHA Neomycin/Polymyxin/Bacitracin 1 each 02/14/20 08:00 02/22/20 08:21 Triple Antibiotic Oint TOP 1 each DAILY MIESHA Administration Vancomycin 125mg 1 each 06/15/19 20:00 06/29/19 17:37 Capsules PO 06/29/19 16:01 1 each QID MIESHA Administration Fidaxomicin (Dificid 1 each 06/29/19 18:00 07/09/19 07:24 ) 200mg Tablet PO 07/09/19 08:01 1 each BID MIESHA Administration Benzonatate 200mg 200 each 07/23/19 20:00 08/06/19 19:45 Cap Own Med PO 08/06/19 20:01 Not Given Q12HR MIESHA Nystatin And 1 each 07/23/19 20:00 08/02/19 19:16 Triamcinolone Crm ( TOP 08/02/19 20:01 1 each Mycolog) Own Med Q12HR MIESHA Administration Nystatin 1 gm 08/03/19 20:00 08/04/19 07:52 Nystatin Crm TOP 1 applic BID MIESHA Administration Nystatin 1 gm 08/04/19 20:00 08/09/19 07:36 Nystatin Crm TOP 1 applic Q12HR MIESHA Administration Polyethylene Glycol 238 gm 09/22/19 12:00 09/22/19 11:36 Miralax PO 09/22/19 12:01 238 gram ONETIME ONE Administration Potassium Chloride 40 meq 05/24/19 14:00 08/03/19 14:18 Potassium Chloride Solution PO 40 meq TID@08,14,20 MIESHA Administration Potassium Chloride 40 meq 08/03/19 18:00 12/21/19 11:06 Klor-Con M20 PO 40 meq TID MIESHA Administration Departure - Departure Disposition: Still A Patient 30 Condition: Fair - Discharge Information Sepsis Event Note - Evaluation Sepsis Screening Result: No Definite Risk - Problem List & Annotations (1) Steinert myotonic dystrophy syndrome SNOMED Code(s): 297393467 Code(s): G71.11 - MYOTONIC MUSCULAR DYSTROPHY Status: Chronic Priority: Medium Current Visit: Yes Annotation/Comment:: Stable by history and today' s exam. Physical therapy in effect. Continue current medical therapy. (2) CHF, Congestive heart failure SNOMED Code(s): 20721979 Code(s): I50.9 - HEART FAILURE, UNSPECIFIED Status: Chronic Priority: Medium Current Visit: Yes Annotation/Comment:: Note previous progressive nonspecific bilateral lower lobe atelectasis versus nonspecific changes, right greater than left, with CT scan of the chest port from 12/29/19 was once again reviewed with evidence of atelectasis and mild pleural effusions consistent with CHF. No significant CHF by clinical exam today. Repeat blood work in 2 months. Despite stable lateral wall cardiac ischemia by EKG since April 2019 difficult to assess secondary to her bifascicular bundle-branch block. No chest pain or anginal type symptoms. Stable dependent edema the patient intentionally losing 8 kg the last 4 months by occasionally skipping her lunch meal. Note previous dietary noncompliance Previous discontinuation of high protein Glucerna supplements as snacks secondary to her weight gain. Dietary consultation in effect. Activity level is overall low. An echocardiogram has also been performed on 12/28/19 with excellent ejection fraction of 5060 percent.The patient's CODE STATUS was previously addressed per request from the nursing staff with the patient wishing to continue to be a FULL CODE. Continue to observe closely. Note previous history of PVCs, complete right bundle branch block/bifascicular bundle-branch block, first-degree AV block, severe dyslipidemia hypokalemia, hypophosphatemia, and hyponatremia. Continue to observe for now with no further change in medical therapy. Further cardiology workup and/or consultation depending on her clinical course. Note Increase of her Lasix therapy, etc. on 12/21 with overall good clinical results. (3) C. difficile colitis SNOMED Code(s): 818443005 Code(s): A04.72 - ENTEROCOLITIS D/T CLOSTRIDIUM DIFFICILE, NOT SPCF RECUR Status: Chronic Priority: Medium Current Visit: Yes Onset Date: Annotation/Comment:: No return of her previous diarrhea, etc. Colonoscopy completed on 09/23/19 with excision of a tubular adenoma from the ascending colon. No apparent evidence of significant colitis by this procedure, however I could not find any record of serial biopsies as previously requested. The patient has since been placed off of isolation precautions. Her diarrhea has not returned. 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 Her room has been properly disinfected. Patient has been treated previously with multiple courses of Flagyl and vancomycin with the patient likely a chronic carrier. Central laboratories previously refused repeat stool C. difficile analysis since the patient no longer had diarrhea and that this evaluation may remain positive for several months. This issue was previously brought up in medical staff for further review and discussion with no further follow-up at this time. Continue to observe closely with repeat antibiotic treatment, stool transplant, etc. depending on her clinical course. (4) Gastroesophageal reflux disease SNOMED Code(s): 509690434 Code(s): K21.9 - GASTRO-ESOPHAGEAL REFLUX DISEASE WITHOUT ESOPHAGITIS Status: Acute Priority: Medium Current Visit: Yes Annotation/Comment:: No abdominal complaints at this time in spite of occasionally required ibuprofen therapy. Tums has been started as GI prophylaxis with overall good results. Otherwise stable by history despite discontinuation of Reglan therapy. No other GI medications required at this time with previous discontinuation of Prilosec, etc. secondary to her recurrent C. difficile colitis. (5) COPD (chronic obstructive pulmonary disease) SNOMED Code(s): 84915890 Code(s): J44.9 - CHRONIC OBSTRUCTIVE PULMONARY DISEASE, UNSPECIFIED Status : Chronic Priority: Medium Current Visit: Yes Annotation/Comment:: As above. O2 dependent COPD stable by history with no bronchitic symptoms at this time. Continue current medical therapy. Patient does have a previous history of distant postoperative respiratory distress, although no complications after previous dental surgery. Qualifiers: COPD type: emphysema Emphysema type: panlobular Qualified Code(s): J43.1 - Panlobular emphysema (6) Hyperglycemia SNOMED Code(s): 16564635 Code(s): R73.9 - HYPERGLYCEMIA, UNSPECIFIED Status: Chronic Priority: Medium Current Visit: Yes Onset Date: 06/29/15 Annotation/Comment:: Hemoglobin A1c normal at 5.2% on 12/28. Dietary consultation is in effect as above. (7) Hyperlipidemia SNOMED Code(s): 64812999 Code(s): E78.5 - HYPERLIPIDEMIA, UNSPECIFIED Status: Chronic Priority: Medium Current Visit: Yes Annotation/Comment:: Lipid Panel in April 2019 showed mild persistent hypertriglyceridemia. Previous history of severe dyslipidemia with aggressive medical therapy at this time. Dietary compliance has improved with intentional weight loss as above. No change in medical therapy for now with previous history of CPK elevation. (8) Hypothyroidism SNOMED Code(s): 30002952 Code(s): E03.9 - HYPOTHYROIDISM, UNSPECIFIED Status: Chronic Priority: Medium Current Visit: Yes Annotation/Comment:: TSH normal in April 2019. No other thyroid type symptoms. (9) Mixed anxiety and depressive disorder SNOMED Code(s): 187470575 Code(s): F41.8 - OTHER SPECIFIED ANXIETY DISORDERS Status: Chronic Priority: Medium Current Visit: Yes Annotation/Comment:: Previous worsening of her anxiety depression disorder with Wellbutrin SR therapy increased on . By my clinical evaluation her symptoms have improved since that time, although she still needs to be watched closely by nursing staff, etc.. Patient is still relatively active with physical therapy, however she is still often alone in her room. The patient was once again encouraged to become more active with social activities, etc. with nursing staff also encouraged to help the patient be more interactive. (10) Orthostatic hypotension SNOMED Code(s): 65888075 Code(s): I95.1 - ORTHOSTATIC HYPOTENSION Status: Chronic Priority: Medium Current Visit: Yes Annotation/Comment:: No recent falls or injuries. Previous problems with recurrent falls including right ankle fracture on . The patient and nursing staff are continuing strict compliance with previously ordered fall precautions, walker use, etc. Continue activity restrictions as per physical therapy, and occupational therapy. Continue current Florinef with otherwise relatively stable decreased systolic blood pressures. No change in therapy. (11) Tardive dyskinesia SNOMED Code(s): 166738195 Code(s): G24.01 - DRUG INDUCED SUBACUTE DYSKINESIA Status: Chronic Priority: Medium Current Visit: Yes Annotation/Comment:: Stable by history. 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 Neurological status is otherwise stable.. Note that patient does have complete dentures uppers and lowers, which does tend to aggravate her problem. No significant clinical relevance at this time with no change in medical therapy for now. (12) Hypoalbuminemia SNOMED Code(s): 002896367 Code(s): E88.09 - [facility] DISORDERS OF PLASMA-PROTEIN METABOLISM, NEC Status: Chronic Priority: Medium Current Visit: Yes Annotation/Comment:: Glucerna high-protein has been discontinued per recommendations from dietitian secondary to persistent weight gain. Continue high-protein diet as above. Observe for now. Her albumin and total protein are still decreased today. (13) Macrocytosis SNOMED Code(s): 568582204 Code(s): D75.89 - OTHER SPECIFIED DISEASES OF BLOOD AND BLOOD-FORMING ORGANS Status: Chronic Priority: High Current Visit: Yes Onset Date: 06/29/15 Annotation/Comment:: No anemia with persistent macrocytosis however normal vitamin B 12 and folic acid levels previously Mild intermittent thrombocytopenia , which is currently nonproblematic. Continue routine blood work and vitamin B- 12 supplementation. (14) Osteoarthritis SNOMED Code(s): 333162807 Code(s): M19.90 - UNSPECIFIED OSTEOARTHRITIS, UNSPECIFIED SITE Status: Chronic Priority: Medium Current Visit: Yes Annotation/Comment:: No complaints today with previous intermittent mild generalized arthralgias, however nonproblematic at this time with the patient nonsymptomatic despite discontinuation of Ultram. PT in effect as above. Note status post bilateral ankle ORIF secondary to fractures. Previous recurrent falls in February 2019 have improved with no recent significant falls or injuries. (15) Peptic reflux disease SNOMED Code(s): 959728215 Code(s): K21.9 - GASTRO-ESOPHAGEAL REFLUX DISEASE WITHOUT ESOPHAGITIS Status: Chronic Priority: Medium Current Visit: Yes Annotation/Comment:: Stable by history - My Orders Last 24 Hours: My Active Orders 04/25/20 05:11 EKG Documentation Completion [RC] ASDIRECTED Chest 2V [CR] Routine CBC WITH AUTO DIFF [HEME] Routine CK W CKMB [CHEM] Routine COMPREHENSIVE METABOLIC PN,CMP [CHEM] Routine FERRITIN [CHEM] Routine FOLIC ACID [CHEM] Routine GLYCOSYLATED HEMOGLOBIN,HGBA1C [CHEM] Routine IRON/TIBC [CHEM] Routine LIPID PANEL [CHEM] Routine MAGNESIUM [CHEM] Routine PHOSPHORUS [CHEM] Routine PRO B-TYPE NATRIUR PEPT,BNPPRO [CHEM] Routine TROPONIN I [CHEM] Routine TSH ULTRASENSITIVE [CHEM] Routine URIC ACID [CHEM] Routine VITAMIN B12 [CHEM] Routine EKG 12 Lead [EK] Routine - Assessment/Plan Last 24 Hours: My Active Orders 04/25/20 05:11 EKG Documentation Completion [RC] ASDIRECTED Chest 2V [CR] Routine CBC WITH AUTO DIFF [HEME] Routine CK W CKMB [CHEM] Routine COMPREHENSIVE METABOLIC PN,CMP [CHEM] Routine FERRITIN [CHEM] Routine FOLIC ACID [CHEM] Routine GLYCOSYLATED HEMOGLOBIN,HGBA1C [CHEM] Routine IRON/TIBC [CHEM] Routine LIPID PANEL [CHEM] Routine MAGNESIUM [CHEM] Routine PHOSPHORUS [CHEM] Routine PRO B-TYPE NATRIUR PEPT,BNPPRO [CHEM] Routine TROPONIN I [CHEM] Routine TSH ULTRASENSITIVE [CHEM] Routine URIC ACID [CHEM] Routine VITAMIN B12 [CHEM] Routine EKG 12 Lead [EK] Routine
[2020-04-13] MEDS: Acetaminophen 325 MG Tab PO PRN (11:07)
[2020-04-13] MEDS: Simvastatin 10 MG Tab PO SCH (19:51)
[2020-04-13] MEDS: Levothyroxine Sodium 137 MCG TABLET PO SCH (19:51)
[2020-04-13] MEDS: BUPROPION XL 300MG PO SCH (19:51)
[2020-04-14] MEDS: Citalopram 20 MG Tab PO SCH (07:58)
[2020-04-14] MEDS: Potassium Chloride 20 MEQ Tab.ER PO SCH ×4 (08:00→19:23)
[2020-04-14] MEDS: Fludrocortisone 0.1 MG Tab PO SCH ×2 (08:00→19:21)
[2020-04-14] MEDS: Albuterol/Ipratropium 3.0-0.5 MG/3 ML Neb Soln NEB SCH ×4 (08:00→19:20)
[2020-04-14] MEDS: Niacin 500 MG Tab PO SCH ×2 (08:01→17:13)
[2020-04-14] MEDS: Furosemide 20 MG Tab PO SCH ×2 (08:01→17:12)
[2020-04-14] MEDS: Cyanocobalamin (Vitamin B12) 1,000 MCG Tab PO SCH (08:02)
[2020-04-14] MEDS: Calcium Carbonate 750 MG Tab.Chew PO SCH (08:02)
[2020-04-14] MEDS: Cholecalciferol (Vitamin D3) 25 MCG Tab PO SCH (08:03)
[2020-04-14] MEDS: BUPROPION XL 300MG PO SCH (19:23)
[2020-04-14] MEDS: Levothyroxine Sodium 137 MCG TABLET PO SCH (19:23)
[2020-04-14] MEDS: Simvastatin 10 MG Tab PO SCH (19:25)
[2020-04-14] MEDS: Acetaminophen 325 MG Tab PO PRN (19:29)
[2020-04-15] MEDS: Potassium Chloride 20 MEQ Tab.ER PO SCH ×4 (07:52→19:10)
[2020-04-15] MEDS: Citalopram 20 MG Tab PO SCH (07:52)
[2020-04-15] MEDS: Furosemide 20 MG Tab PO SCH ×2 (07:52→17:10)
[2020-04-15] MEDS: Fludrocortisone 0.1 MG Tab PO SCH ×2 (07:52→19:10)
[2020-04-15] MEDS: Albuterol/Ipratropium 3.0-0.5 MG/3 ML Neb Soln NEB SCH ×4 (07:52→19:09)
[2020-04-15] MEDS: Niacin 500 MG Tab PO SCH ×2 (07:53→17:10)
[2020-04-15] MEDS: Calcium Carbonate 750 MG Tab.Chew PO SCH (07:53)
[2020-04-15] MEDS: Cholecalciferol (Vitamin D3) 25 MCG Tab PO SCH (07:53)
[2020-04-15] MEDS: Cyanocobalamin (Vitamin B12) 1,000 MCG Tab PO SCH (07:53)
[2020-04-15] MEDS: Aluminum Hydroxide/Magnesium Hydroxide/Simethicone Susp 30 ML Cup PO PRN (07:54)
[2020-04-15] MEDS: IBUPROFEN 600 MG PO PRN (07:54)
[2020-04-15] MEDS: Acetaminophen 325 MG Tab PO PRN (11:35)
[2020-04-15] MEDS: Simvastatin 10 MG Tab PO SCH (19:10)
[2020-04-15] MEDS: Levothyroxine Sodium 137 MCG TABLET PO SCH (19:10)
[2020-04-15] MEDS: BUPROPION XL 300MG PO SCH (19:10)
[2020-04-16] MEDS: Citalopram 20 MG Tab PO SCH (07:52)
[2020-04-16] MEDS: Albuterol/Ipratropium 3.0-0.5 MG/3 ML Neb Soln NEB SCH ×4 (07:53→19:11)
[2020-04-16] MEDS: Acetaminophen 325 MG Tab PO PRN ×2 (07:53→15:06)
[2020-04-16] MEDS: Potassium Chloride 20 MEQ Tab.ER PO SCH ×4 (07:53→19:13)
[2020-04-16] MEDS: Furosemide 20 MG Tab PO SCH ×2 (07:53→17:02)
[2020-04-16] MEDS: Fludrocortisone 0.1 MG Tab PO SCH ×2 (07:53→19:11)
[2020-04-16] MEDS: Niacin 500 MG Tab PO SCH ×2 (07:54→17:02)
[2020-04-16] MEDS: Calcium Carbonate 750 MG Tab.Chew PO SCH (07:54)
[2020-04-16] MEDS: Cyanocobalamin (Vitamin B12) 1,000 MCG Tab PO SCH (07:55)
[2020-04-16] MEDS: Aluminum Hydroxide/Magnesium Hydroxide/Simethicone Susp 30 ML Cup PO PRN (07:55)
[2020-04-16] MEDS: Cholecalciferol (Vitamin D3) 25 MCG Tab PO SCH (07:55)
[2020-04-16] MEDS: IBUPROFEN 600 MG PO PRN ×2 (11:43→19:14)
[2020-04-16] MEDS: Levothyroxine Sodium 137 MCG TABLET PO SCH (19:12)
[2020-04-16] MEDS: BUPROPION XL 300MG PO SCH (19:13)
[2020-04-16] MEDS: Simvastatin 10 MG Tab PO SCH (19:13)
[2020-04-16] MEDS: Menthol/Methyl Salicylate 85 GM Tube TOP PRN (19:15)
[2020-04-17] MEDS: Citalopram 20 MG Tab PO SCH (07:52)
[2020-04-17] MEDS: Albuterol/Ipratropium 3.0-0.5 MG/3 ML Neb Soln NEB SCH ×4 (07:53→19:25)
[2020-04-17] MEDS: Fludrocortisone 0.1 MG Tab PO SCH ×2 (07:53→19:26)
[2020-04-17] MEDS: Potassium Chloride 20 MEQ Tab.ER PO SCH ×4 (07:53→19:26)
[2020-04-17] MEDS: Niacin 500 MG Tab PO SCH ×2 (07:54→17:12)
[2020-04-17] MEDS: Calcium Carbonate 750 MG Tab.Chew PO SCH (07:54)
[2020-04-17] MEDS: Furosemide 20 MG Tab PO SCH ×2 (07:54→17:11)
[2020-04-17] MEDS: Cyanocobalamin (Vitamin B12) 1,000 MCG Tab PO SCH (07:55)
[2020-04-17] MEDS: Cholecalciferol (Vitamin D3) 25 MCG Tab PO SCH (07:55)
[2020-04-17] MEDS: Levothyroxine Sodium 137 MCG TABLET PO SCH (19:26)
[2020-04-17] MEDS: BUPROPION XL 300MG PO SCH (19:27)
[2020-04-17] MEDS: Acetaminophen 325 MG Tab PO PRN (19:27)
[2020-04-17] MEDS: Simvastatin 10 MG Tab PO SCH (19:27)
[2020-04-17] MEDS: Menthol/Methyl Salicylate 85 GM Tube TOP PRN (19:28)
[2020-04-18] MEDS: Potassium Chloride 20 MEQ Tab.ER PO SCH ×4 (07:45→19:17)
[2020-04-18] MEDS: Citalopram 20 MG Tab PO SCH (07:45)
[2020-04-18] MEDS: Fludrocortisone 0.1 MG Tab PO SCH ×2 (07:45→19:17)
[2020-04-18] MEDS: Furosemide 20 MG Tab PO SCH ×2 (07:45→17:40)
[2020-04-18] MEDS: Niacin 500 MG Tab PO SCH ×2 (07:45→17:40)
[2020-04-18] MEDS: Cholecalciferol (Vitamin D3) 25 MCG Tab PO SCH (07:46)
[2020-04-18] MEDS: Calcium Carbonate 750 MG Tab.Chew PO SCH (07:46)
[2020-04-18] MEDS: Cyanocobalamin (Vitamin B12) 1,000 MCG Tab PO SCH (07:46)
[2020-04-18] MEDS: Albuterol/Ipratropium 3.0-0.5 MG/3 ML Neb Soln NEB SCH ×4 (07:47→19:16)
[2020-04-18] MEDS: Acetaminophen 325 MG Tab PO PRN ×2 (07:47→16:45)
[2020-04-18] MEDS: Levothyroxine Sodium 137 MCG TABLET PO SCH (19:17)
[2020-04-18] MEDS: Simvastatin 10 MG Tab PO SCH (19:18)
[2020-04-18] MEDS: BUPROPION XL 300MG PO SCH (19:18)
[2020-04-19] MEDS: Fludrocortisone 0.1 MG Tab PO SCH ×2 (07:53→19:02)
[2020-04-19] MEDS: Potassium Chloride 20 MEQ Tab.ER PO SCH ×4 (07:53→19:01)
[2020-04-19] MEDS: Albuterol/Ipratropium 3.0-0.5 MG/3 ML Neb Soln NEB SCH ×4 (07:53→19:00)
[2020-04-19] MEDS: Citalopram 20 MG Tab PO SCH (07:53)
[2020-04-19] MEDS: Furosemide 20 MG Tab PO SCH ×2 (07:53→17:13)
[2020-04-19] MEDS: IBUPROFEN 600 MG PO PRN ×2 (07:54→15:06)
[2020-04-19] MEDS: Niacin 500 MG Tab PO SCH ×2 (07:54→17:13)
[2020-04-19] MEDS: Cyanocobalamin (Vitamin B12) 1,000 MCG Tab PO SCH (07:55)
[2020-04-19] MEDS: Cholecalciferol (Vitamin D3) 25 MCG Tab PO SCH (07:55)
[2020-04-19] MEDS: Calcium Carbonate 750 MG Tab.Chew PO SCH (07:55)
[2020-04-19] MEDS: Acetaminophen 325 MG Tab PO PRN ×2 (11:39→17:17)
[2020-04-19] MEDS: Simvastatin 10 MG Tab PO SCH (19:02)
[2020-04-19] MEDS: BUPROPION XL 300MG PO SCH (19:02)
[2020-04-19] MEDS: Levothyroxine Sodium 137 MCG TABLET PO SCH (19:02)
[2020-04-20] MEDS: Albuterol/Ipratropium 3.0-0.5 MG/3 ML Neb Soln NEB SCH ×4 (07:02→19:19)
[2020-04-20] MEDS: Fludrocortisone 0.1 MG Tab PO SCH ×2 (07:03→19:19)
[2020-04-20] MEDS: Potassium Chloride 20 MEQ Tab.ER PO SCH ×4 (07:03→19:19)
[2020-04-20] MEDS: Citalopram 20 MG Tab PO SCH (07:03)
[2020-04-20] MEDS: IBUPROFEN 600 MG PO PRN ×2 (07:04→15:04)
[2020-04-20] MEDS: Furosemide 20 MG Tab PO SCH ×2 (07:04→17:11)
[2020-04-20] MEDS: Cyanocobalamin (Vitamin B12) 1,000 MCG Tab PO SCH (07:05)
[2020-04-20] MEDS: Niacin 500 MG Tab PO SCH ×2 (07:05→17:11)
[2020-04-20] MEDS: Calcium Carbonate 750 MG Tab.Chew PO SCH (07:05)
[2020-04-20] MEDS: Cholecalciferol (Vitamin D3) 25 MCG Tab PO SCH (07:05)
[2020-04-20] MEDS: Aluminum Hydroxide/Magnesium Hydroxide/Simethicone Susp 30 ML Cup PO PRN (07:07)
[2020-04-20] MEDS: Acetaminophen 325 MG Tab PO PRN (11:22)
[2020-04-20] MEDS: BUPROPION XL 300MG PO SCH (19:19)
[2020-04-20] MEDS: Levothyroxine Sodium 137 MCG TABLET PO SCH (19:19)
[2020-04-20] MEDS: Simvastatin 10 MG Tab PO SCH (19:19)
[2020-04-21] MEDS: Fludrocortisone 0.1 MG Tab PO SCH ×2 (08:16→19:20)
[2020-04-21] MEDS: Citalopram 20 MG Tab PO SCH (08:16)
[2020-04-21] MEDS: Potassium Chloride 20 MEQ Tab.ER PO SCH ×4 (08:17→19:20)
[2020-04-21] MEDS: Furosemide 20 MG Tab PO SCH ×2 (08:17→17:34)
[2020-04-21] MEDS: Acetaminophen 325 MG Tab PO PRN ×2 (08:17→17:34)
[2020-04-21] MEDS: Albuterol/Ipratropium 3.0-0.5 MG/3 ML Neb Soln NEB SCH ×4 (08:18→19:19)
[2020-04-21] MEDS: Niacin 500 MG Tab PO SCH ×2 (08:18→17:34)
[2020-04-21] MEDS: Cyanocobalamin (Vitamin B12) 1,000 MCG Tab PO SCH (08:19)
[2020-04-21] MEDS: Cholecalciferol (Vitamin D3) 25 MCG Tab PO SCH (08:19)
[2020-04-21] MEDS: Calcium Carbonate 750 MG Tab.Chew PO SCH (08:19)
[2020-04-21] MEDS: Aluminum Hydroxide/Magnesium Hydroxide/Simethicone Susp 30 ML Cup PO PRN (11:44)
[2020-04-21] MEDS: Levothyroxine Sodium 137 MCG TABLET PO SCH (19:20)
[2020-04-21] MEDS: BUPROPION XL 300MG PO SCH (19:21)
[2020-04-21] MEDS: Simvastatin 10 MG Tab PO SCH (19:21)
[2020-04-21] MEDS: Menthol/Methyl Salicylate 85 GM Tube TOP PRN (19:22)
[2020-04-22] MEDS: Potassium Chloride 20 MEQ Tab.ER PO SCH ×4 (08:21→19:31)
[2020-04-22] MEDS: Furosemide 20 MG Tab PO SCH ×2 (08:21→17:18)
[2020-04-22] MEDS: Citalopram 20 MG Tab PO SCH (08:22)
[2020-04-22] MEDS: Fludrocortisone 0.1 MG Tab PO SCH ×2 (08:22→19:31)
[2020-04-22] MEDS: Albuterol/Ipratropium 3.0-0.5 MG/3 ML Neb Soln NEB SCH ×4 (08:22→19:31)
[2020-04-22] MEDS: Niacin 500 MG Tab PO SCH ×2 (08:23→17:19)
[2020-04-22] MEDS: Calcium Carbonate 750 MG Tab.Chew PO SCH (08:23)
[2020-04-22] MEDS: Cyanocobalamin (Vitamin B12) 1,000 MCG Tab PO SCH (08:23)
[2020-04-22] MEDS: Cholecalciferol (Vitamin D3) 25 MCG Tab PO SCH (08:23)
[2020-04-22] MEDS: Acetaminophen 325 MG Tab PO PRN ×2 (08:24→17:19)
[2020-04-22] MEDS: Levothyroxine Sodium 137 MCG TABLET PO SCH (19:32)
[2020-04-22] MEDS: BUPROPION XL 300MG PO SCH (19:32)
[2020-04-22] MEDS: Simvastatin 10 MG Tab PO SCH (19:32)
[2020-04-22] MEDS: IBUPROFEN 600 MG PO PRN (19:33)
[2020-04-23] MEDS: Citalopram 20 MG Tab PO SCH (08:19)
[2020-04-23] MEDS: Potassium Chloride 20 MEQ Tab.ER PO SCH ×4 (08:19→19:16)
[2020-04-23] MEDS: Fludrocortisone 0.1 MG Tab PO SCH ×2 (08:19→19:16)
[2020-04-23] MEDS: Furosemide 20 MG Tab PO SCH ×2 (08:20→17:18)
[2020-04-23] MEDS: Calcium Carbonate 750 MG Tab.Chew PO SCH (08:20)
[2020-04-23] MEDS: Niacin 500 MG Tab PO SCH ×2 (08:20→17:18)
[2020-04-23] MEDS: Albuterol/Ipratropium 3.0-0.5 MG/3 ML Neb Soln NEB SCH ×4 (08:20→19:16)
[2020-04-23] MEDS: Cholecalciferol (Vitamin D3) 25 MCG Tab PO SCH (08:21)
[2020-04-23] MEDS: Acetaminophen 325 MG Tab PO PRN ×2 (08:21→19:18)
[2020-04-23] MEDS: Cyanocobalamin (Vitamin B12) 1,000 MCG Tab PO SCH (08:21)
[2020-04-23] MEDS: BUPROPION XL 300MG PO SCH (19:17)
[2020-04-23] MEDS: Levothyroxine Sodium 137 MCG TABLET PO SCH (19:17)
[2020-04-23] MEDS: Simvastatin 10 MG Tab PO SCH (19:18)
[2020-04-23] MEDS: Menthol/Methyl Salicylate 85 GM Tube TOP PRN (19:19)
[2020-04-24] MEDS: Potassium Chloride 20 MEQ Tab.ER PO SCH ×4 (07:47→19:19)
[2020-04-24] MEDS: Furosemide 20 MG Tab PO SCH ×2 (07:47→17:06)
[2020-04-24] MEDS: Fludrocortisone 0.1 MG Tab PO SCH ×2 (07:47→19:19)
[2020-04-24] MEDS: Citalopram 20 MG Tab PO SCH (07:47)
[2020-04-24] MEDS: Albuterol/Ipratropium 3.0-0.5 MG/3 ML Neb Soln NEB SCH ×4 (07:47→19:20)
[2020-04-24] MEDS: IBUPROFEN 600 MG PO PRN ×2 (07:48→15:03)
[2020-04-24] MEDS: Niacin 500 MG Tab PO SCH ×2 (07:48→17:06)
[2020-04-24] MEDS: Aluminum Hydroxide/Magnesium Hydroxide/Simethicone Susp 30 ML Cup PO PRN (07:49)
[2020-04-24] MEDS: Calcium Carbonate 750 MG Tab.Chew PO SCH (07:49)
[2020-04-24] MEDS: Cyanocobalamin (Vitamin B12) 1,000 MCG Tab PO SCH (07:49)
[2020-04-24] MEDS: Cholecalciferol (Vitamin D3) 25 MCG Tab PO SCH (07:49)
[2020-04-24] MEDS: Acetaminophen 325 MG Tab PO PRN ×2 (11:10→19:20)
[2020-04-24] MEDS: Simvastatin 10 MG Tab PO SCH (19:19)
[2020-04-24] MEDS: BUPROPION XL 300MG PO SCH (19:19)
[2020-04-24] MEDS: Levothyroxine Sodium 137 MCG TABLET PO SCH (19:19)
[2020-04-24] MEDS: Menthol/Methyl Salicylate 85 GM Tube TOP PRN (19:21)
[2020-04-25 07:29] LABS: HEMOGLOBIN A1C 5.2 % (4.3-5.7)
[2020-04-25] MEDS: Albuterol/Ipratropium 3.0-0.5 MG/3 ML Neb Soln NEB SCH ×4 (07:37→19:23)
[2020-04-25] MEDS: Fludrocortisone 0.1 MG Tab PO SCH ×2 (07:38→19:24)
[2020-04-25] MEDS: Furosemide 20 MG Tab PO SCH ×2 (07:38→17:04)
[2020-04-25] MEDS: Citalopram 20 MG Tab PO SCH (07:38)
[2020-04-25] MEDS: Potassium Chloride 20 MEQ Tab.ER PO SCH ×4 (07:38→19:24)
[2020-04-25] MEDS: Cyanocobalamin (Vitamin B12) 1,000 MCG Tab PO SCH (07:39)
[2020-04-25] MEDS: Calcium Carbonate 750 MG Tab.Chew PO SCH (07:39)
[2020-04-25] MEDS: Niacin 500 MG Tab PO SCH ×2 (07:39→17:04)
[2020-04-25] MEDS: Cholecalciferol (Vitamin D3) 25 MCG Tab PO SCH (07:39)
[2020-04-25] MEDS: Aluminum Hydroxide/Magnesium Hydroxide/Simethicone Susp 30 ML Cup PO PRN ×2 (07:40→19:27)
[2020-04-25] MEDS: IBUPROFEN 600 MG PO PRN ×2 (07:40→15:14)
[2020-04-25 08:02] LABS: CHLORIDE,CL 111 mmol/L (98-107); SODIUM,NA 147 mmol/L (136-145)
[2020-04-25] MEDS: Acetaminophen 325 MG Tab PO PRN ×2 (11:03→19:26)
[2020-04-25] MEDS: Simvastatin 10 MG Tab PO SCH (19:23)
[2020-04-25] MEDS: BUPROPION XL 300MG PO SCH (19:24)
[2020-04-25] MEDS: Levothyroxine Sodium 137 MCG TABLET PO SCH (19:24)
[2020-04-25] MEDS: Menthol/Methyl Salicylate 85 GM Tube TOP PRN (19:25)
[2020-04-26] MEDS: Citalopram 20 MG Tab PO SCH (08:05)
[2020-04-26] MEDS: Potassium Chloride 20 MEQ Tab.ER PO SCH ×4 (08:06→19:28)
[2020-04-26] MEDS: Fludrocortisone 0.1 MG Tab PO SCH ×2 (08:06→19:28)
[2020-04-26] MEDS: Furosemide 20 MG Tab PO SCH ×2 (08:06→17:10)
[2020-04-26] MEDS: Niacin 500 MG Tab PO SCH ×2 (08:07→17:10)
[2020-04-26] MEDS: Cholecalciferol (Vitamin D3) 25 MCG Tab PO SCH (08:08)
[2020-04-26] MEDS: Calcium Carbonate 750 MG Tab.Chew PO SCH (08:08)
[2020-04-26] MEDS: Albuterol/Ipratropium 3.0-0.5 MG/3 ML Neb Soln NEB SCH ×4 (08:09→19:28)
[2020-04-26] MEDS: Cyanocobalamin (Vitamin B12) 1,000 MCG Tab PO SCH (08:09)
--- NOTE | 2020-04-26 09:54 | PCM.PN ---
- General Info Date of Service: 04/26/20 Admission Dx/Problem (Free Text): 1. Recurrent C. difficile colitis 2. Chronic diarrhea 3. Myotonic dystrophy with secondary weakness Subjective Update: Return of her previous C. difficile infection with probable chronic carrier state. Additional new perioral dyskinesia. Functional Status: Reports: Pain Controlled, Tolerating Diet, Ambulating (With assist) Pain Score: 0 - Review of Systems General: Reports: Weakness (Stable chronic). Denies: Fever, Fatigue, Malaise, Chills, Night Sweats, Appetite (Adequate) HEENT: Reports: No Symptoms. Denies: Ear Pain, Eye Pain, Headaches, Post Nasal Drip, Sinus Congestion, Sore Throat, Rhinitis, Visual Changes Pulmonary: Reports: Cough (Occasional nonproductive). Denies: Shortness of Breath, Pleuritic Chest Pain, Sputum, Hemoptysis, Wheezing Cardiovascular: Reports: Edema (Stable dependent). Denies: Chest Pain, Palpitations, Dyspnea on Exertion, Orthopnea, PND, Lightheadedness Gastrointestinal: Reports: Abdominal Pain (Occasional heartburn type symptoms now on the morning). Denies: Constipation (Normal bowel movement yesterday), Decreased Appetite, Diarrhea, Difficulty Swallowing, Flatus, Hematochezia, Melena, Nausea, Vomiting Genitourinary: Reports: No Symptoms. Denies: Dysuria, Frequency, Burning, Pain , Urgency, Hematuria, Retention, Flank Pain Musculoskeletal: Reports: Leg Pain (Nonspecific occasional bilateral). Denies: Neck Pain, Shoulder Pain, Arm Pain, Back Pain, Joint Pain, Joint Swelling Skin: Reports: No Symptoms. Denies: Diaphoresis, Bruising Neurological: Reports: Pre-Existing Deficit (Stable florinda-oral tardive dyskinesia ), Difficulty Walking (Stable chronic), Weakness (Stable chronic). Denies: Confusion, Dizziness, Headache, Numbness, Paresthesia, Tingling, Tremors, Trouble Speaking, Change in Speech, Gait Disturbance Psychiatric: Denies: Confusion, Depression, Anxiety, Agitation, Cravings, Hallucinations - Patient Data Vitals - Most Recent: Last Vital Signs Temp 36.7 C 04/26/20 08:00 Pulse 59 L 04/25/20 08:00 Resp 20 04/25/20 08:00 BP 126/90 04/25/20 08:00 Pulse Ox 92 L 04/25/20 08:00 Weight - Most Recent: 84.368 kg (Additional 1.4 kg intentional weight loss) I&O - Last 24 Hours: Intake & Output 04/25/20 04/26/20 04/26/20 22:59 06:59 14:59 Intake Total 640 440 Balance 640 440 Imaging Impressions - Last 24 Hours: Chest x-ray, PA and lateral, 04/25/20 shows no evidence of significant cardiomegaly or CHF. I'll increase of previous thoracic vertebral body compression fractures and secondary dorsal kyphosis. Mild scoliosis also noted. Stable bilateral lower lobe atelectasis. Lab Results Last 24 Hours: Labs from 04/25/20 were reviewed. Sandor Results Last 24 Hours: None Med Orders - Current: Current Medications Acetaminophen (Tylenol) 650 mg PO Q4H PRN PRN Reason: Pain Last Admin: 04/25/20 19:26 Dose: 650 mg Al Hydroxide/Mg Hydroxide (Mag-Al Plus) 30 ml PO Q4H PRN PRN Reason: Indigestion Last Admin: 04/25/20 19:27 Dose: 30 ml Albuterol/Ipratropium (Duoneb 3.0-0.5 Mg/3 Ml) 3 ml NEB Q4HRRT PRN PRN Reason: Dyspnea Last Admin: 02/28/20 12:14 Dose: 3 ml Albuterol/Ipratropium (Duoneb 3.0-0.5 Mg/3 Ml) 3 ml NEB QIDRT [facility] Last Admin: 04/26/20 08:09 Dose: 3 ml Calcium Carbonate/Glycine (Tums Extra Strength) 1,500 mg PO DAILY [facility] Last Admin: 04/26/20 08:08 Dose: 1,500 mg Cholecalciferol (Vitamin D3) 25 mcg PO DAILY [facility] Last Admin: 04/26/20 08:08 Dose: 25 mcg Citalopram Hydrobromide (Celexa) 20 mg PO QAM [facility] Last Admin: 04/26/20 08:05 Dose: 20 mg Cyanocobalamin (Vitamin B12) 1,000 mcg PO QAM [facility] Last Admin: 04/26/20 08:09 Dose: 1,000 mcg Fludrocortisone Acetate (Florinef) 0.1 mg PO BEDTIME [facility] Last Admin: 04/25/20 19:24 Dose: 0.1 mg Fludrocortisone Acetate (Florinef) 0.2 mg PO QAM [facility] Last Admin: 04/26/20 08:06 Dose: 0.2 mg Furosemide (Lasix) 20 mg PO BID [facility] Last Admin: 04/26/20 08:06 Dose: 20 mg Guaifenesin/Dextromethorphan (Robitussin Dm) 10 ml PO Q4H PRN PRN Reason: Cough Last Admin: 02/14/20 16:48 Dose: 10 ml Ibuprofen (Motrin) 600 mg PO Q6H PRN PRN Reason: Breakthrough Pain Last Admin: 04/25/20 15:14 Dose: 600 mg Magnesium Hydroxide (Milk Of Magnesia) 30 ml PO DAILY PRN PRN Reason: Constipation Last Admin: 12/18/19 11:36 Dose: 30 ml Methyl Salicylate (Icy Hot Cream) 0 gm TOP QID PRN PRN Reason: Pain (mild 1-3) Last Admin: 04/25/20 19:25 Dose: 1 applic Niacin (Niacin) 500 mg PO BID [facility] Last Admin: 04/26/20 08:07 Dose: 500 mg Levothyroxine Sodium (137 Mcg Tablet) 137 mcg PO BEDTIME [facility] Last Admin: 04/25/20 19:24 Dose: 137 mcg Bupropion Xl 300mg 1 each PO BEDTIME [facility] Last Admin: 04/25/20 19:24 Dose: 1 each Potassium Chloride (Klor-Con M20) 40 meq PO QID [facility] Last Admin: 04/26/20 08:06 Dose: 40 meq Simvastatin (Zocor) 10 mg PO BEDTIME [facility] Last Admin: 04/25/20 19:23 Dose: 10 mg Discontinued Medications Albuterol/Ipratropium (Duoneb 3.0-0.5 Mg/3 Ml) 3 ml NEB BIDRT [facility] Last Admin: 12/21/19 07:23 Dose: 3 ml Betamethasone/Clotrimazole (Lotrisone) 0 gm TOP Q12HR [facility] Last Admin: 07/23/19 08:20 Dose: 1 applic Bisacodyl (Dulcolax) 10 mg PO ONETIME ONE Stop: 09/21/19 18:01 Last Admin: 09/21/19 17:41 Dose: 10 mg Bisacodyl (Dulcolax) 10 mg PO ONETIME ONE Stop: 09/22/19 18:01 Last Admin: 09/22/19 17:24 Dose: 10 mg Budesonide (Pulmicort) 0.5 mg NEB Q12HR [facility] Stop: 08/06/19 20:01 Last Admin: 08/06/19 19:35 Dose: 0.5 mg Bupropion HCl (Wellbutrin) 150 mg PO BEDTIME [facility] Last Admin: 12/20/19 19:28 Dose: 150 mg Calcium Carbonate/Glycine (Tums) 500 mg PO TID@0800,1400,2000 [facility] Last Admin: 11/10/19 07:06 Dose: 500 mg Cholecalciferol (Vitamin D3) 1,000 mcg PO QAM [facility] Last Admin: 05/26/19 08:49 Dose: Not Given Diphenoxylate HCl/Atropine (Lomotil 0.025-2.5 Mg) 1 tab PO TID PRN PRN Reason: Diarrhea Last Admin: 09/29/19 09:52 Dose: 1 tab Furosemide (Lasix) 20 mg PO DAILY [facility] Last Admin: 12/21/19 07:24 Dose: 20 mg Furosemide (Lasix) 40 mg IM NOW ONE Stop: 01/13/20 14:59 Last Admin: 01/13/20 17:26 Dose: 40 mg Guaifenesin/Dextromethorphan (Robitussin Dm) 10 ml PO Q4H PRN PRN Reason: Cough Last Admin: 07/20/19 19:28 Dose: 10 ml Guaifenesin/Pseudoephedrine HCl (Mucinex D Er 600-60 Mg) 1 tab PO Q12H [facility] Stop: 07/31/19 20:01 Last Admin: 07/31/19 19:30 Dose: 1 tab Influenza Virus Vaccine (Fluzone Quad [id number] Syringe) 60 mcg IM .ONCE ONE Stop: 09/07/19 14:01 Last Admin: 09/07/19 13:37 Dose: 60 mcg Magnesium Sulfate (Epsom Salt) 0 gm TOP DAILY [facility] Last Admin: 02/21/20 09:16 Dose: Not Given Neomycin/Polymyxin/Bacitracin (Triple Antibiotic Oint) 1 each TOP DAILY [facility] Last Admin: 02/22/20 08:21 Dose: 1 each Vancomycin 125mg (Capsules) 1 each PO QID [facility] Stop: 06/29/19 16:01 Last Admin: 06/29/19 17:37 Dose: 1 each Fidaxomicin (Dificid () 200mg Tablet) 1 each PO BID [facility] Stop: 07/09/19 08:01 Last Admin: 07/09/19 07:24 Dose: 1 each Benzonatate 200mg (Cap Own Med ) 200 each PO Q12HR [facility] Stop: 08/06/19 20:01 Last Admin: 08/06/19 19:45 Dose: Not Given Nystatin And Triamcinolone Crm ( Mycolog) Own Med 1 each TOP Q12HR [facility] Stop: 08/02/19 20:01 Last Admin: 08/02/19 19:16 Dose: 1 each Nystatin (Nystatin Crm) 1 gm TOP BID [facility] Last Admin: 08/04/19 07:52 Dose: 1 applic Nystatin (Nystatin Crm) 1 gm TOP Q12HR [facility] Last Admin: 08/09/19 07:36 Dose: 1 applic Polyethylene Glycol (Miralax) 238 gm PO ONETIME ONE Stop: 09/22/19 12:01 Last Admin: 09/22/19 11:36 Dose: 238 gram Potassium Chloride (Potassium Chloride Solution) 40 meq PO TID@08,14,20 [facility] Last Admin: 08/03/19 14:18 Dose: 40 meq Potassium Chloride (Klor-Con M20) 40 meq PO TID [facility] Last Admin: 12/21/19 11:06 Dose: 40 meq - Exam Quality Assessment: Supplemental Oxygen (3 L/m by nasal cannula), DVT Prophylaxis. No: Central Line/PICC, Urine Catheter, Skin Breakdown, Restraints General: Alert, Oriented, Cooperative, No Acute Distress HEENT: Pupils Equal, Pupils Reactive, EOMI, Mucous Membr. Moist/[place]. No: Scleral Icterus Neck: Supple, Trachea Midline, No JVD, No Thyromegaly, +2 Carotid Pulse wo Bruit. No: Lymphadenopathy Lungs: Normal Respiratory Effort, Rales (Mild bilateral basilar). No: Decreased Breath Sounds, Rhonchi, Rub, Stridor, Wheezing Cardiovascular: Regular Rate, Regular Rhythm, No Murmurs. No: Murmurs, Gallops , Rubs GI/Abdominal Exam: Normal Bowel Sounds, Soft, Non-Tender, No Organomegaly, No Distention, No Abnormal Bruit, No Mass, Other (Obese). No: Guarding (Female) Exam: Deferred Back Exam: Full Range of Motion, Other (Moderate kyphosis with mild scoliosis). No: CVA Tenderness (L), CVA Tenderness (R), Muscle Spasm, Paraspinal Tenderness, Vertebral Tenderness Extremities: Normal Range of Motion, Non-Tender, Pedal Edema (Stable moderate lymphedema of the lower extremities). No: Joint Swelling, Lurdes's Sign Peripheral Pulses: 2+: Radial (L), Radial (R), Dorsalis Pedis (L), Dorsalis Pedis (R) Skin: Warm, Dry, Intact. No: Ecchymosis Neurological: No New Focal Deficit, Other (Stable mild perioral tardive dyskinesia) Psy/Mental Status: Alert, Normal Affect, Normal Mood. No: Agitated, Withdrawal Symptoms EKG INTERPRETATION EKG Date: 04/25/20 Time: 07:46 Rhythm: NSR Rate (Beats/Min): 63 [place]: LAD-Left Wentworth Deviation (Extended left cardiac) P-Wave: Present QRS: Other (QRS interval of 0.13 seconds representing a stable complete bifascicular bundle-branch block) ST-T: Normal (Improved resolve nonspecific ST changes and T-wave inversion in leads 1 and aVL) QT: Normal NC/PQ Interval: 0.17 seconds representing resolution of previous first degree AV block. Stable poor R-wave progression in the anterior leads. Comparison: Change From Previous EKG (As above since 08/26/19) EKG Interpretation Comments: 1. No acute ischemic changes with previous history of borderline lateral wall ischemia 2. Complete bifascicular bundle-branch block 3. First-degree AV block-resolved Sepsis Event Note - Evaluation Sepsis Screening Result: No Definite Risk - Focused Exam Vital Signs: Vital Signs Temp 04/26/20 08:00 36.7 C Date Exam was Performed: 04/26/20 Time Exam was Performed: 10:27 - Problem List & Annotations (1) Steinert myotonic dystrophy syndrome SNOMED Code(s): 412035373 Code(s): G71.11 - MYOTONIC MUSCULAR DYSTROPHY Status: Chronic Priority: Medium Current Visit: Yes Annotation/Comment:: Stable by history and today' s exam. Physical therapy in effect. Continue current medical therapy. (2) CHF, Congestive heart failure SNOMED Code(s): 41440769 Code(s): I50.9 - HEART FAILURE, UNSPECIFIED Status: Chronic Priority: Medium Current Visit: Yes Annotation/Comment:: Note previous progressive nonspecific bilateral lower lobe atelectasis versus nonspecific changes, right greater than left, with CT scan of the chest performed on 12/29/19. Chest x-ray, PA and lateral, on 04/25/20 shows stable bilateral lower lobe atelectasis with no significant evidence of CHF. Previous CT scan in December as above did show evidence of atelectasis and mild pleural effusions consistent with CHF. No significant CHF by clinical exam today. Yearly blood work, EKG, chest x-ray, etc. were conducted on 04/25/20 and were reviewed by me today. Improved/stable lateral wall cardiac ischemia by EKG since April 2019 with resolved first-degree AV block and stable complete bifascicular bundle-branch block. No chest pain or anginal type symptoms. Stable dependent edema with the patient intentionally losing an additional 1.4 kg with a 9.4 kg total intensional weight loss in the last 6 months. Note previous dietary noncompliance, however much improved. Previous discontinuation of high protein Glucerna supplements as snacks secondary to her weight gain. Dietary consultation in effect. Activity level is overall low. An echocardiogram had also been performed on 12/28/19 with excellent ejection fraction of 5060 percent.The patient's CODE STATUS was previously addressed per request from the nursing staff with the patient wishing to continue to be a FULL CODE. Continue to observe closely. Note previous history of PVCs, complete right bundle branch block/bifascicular bundle-branch block, first-degree AV block, severe dyslipidemia hypokalemia, hypophosphatemia, and hyponatremia. Mild persistent hypertriglyceridemia with borderline hypernatremia on 04/25. Note normal magnesium on the potassium, and phosphate levels on 04/25. Continue to observe for now with no further change in medical therapy. Further cardiology workup and/or consultation depending on her clinical course. Note Increase of her Lasix therapy, etc. on 12/21 with overall good clinical results. (3) C. difficile colitis SNOMED Code(s): 411584612 Code(s): A04.72 - ENTEROCOLITIS D/T CLOSTRIDIUM DIFFICILE, NOT SPCF RECUR Status: Chronic Priority: Medium Current Visit: Yes Onset Date: Annotation/Comment:: No return of her previous diarrhea, etc. Colonoscopy completed on 09/23/19 with excision of a tubular adenoma from the ascending colon. No apparent evidence of significant colitis by this procedure, however I could not find any record of serial biopsies as previously requested. The patient has since been placed off of isolation precautions. Her diarrhea has not returned. 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 Her room has been properly disinfected. Patient has been treated previously with multiple courses of Flagyl and vancomycin with the patient likely a chronic carrier. Central laboratories previously refused repeat stool C. difficile analysis since the patient no longer had diarrhea and that this evaluation may remain positive for several months. This issue was previously brought up in medical staff for further review and discussion with no further follow-up at this time. Continue to observe closely with repeat antibiotic treatment, stool transplant, etc. depending on her clinical course. Avoid reinitiation of H2 histamine receptor blockers, omeprazole therapy, etc. secondary to her history of C. difficile colitis as above. Observe for now with the patient already on 1500 mg of OTC Tums in the a.m.. (4) Gastroesophageal reflux disease SNOMED Code(s): 289598484 Code(s): K21.9 - GASTRO-ESOPHAGEAL REFLUX DISEASE WITHOUT ESOPHAGITIS Status: Acute Priority: Medium Current Visit: Yes Annotation/Comment:: Creased heartburn in the a.m. by nurse's history, although the patient did not complain of this during my visit. Continue her Tums therapy with caution as above. She still does occasionally required ibuprofen therapy. Otherwise stable by history despite discontinuation of Reglan therapy. No other GI medications required at this time with previous discontinuation of Prilosec, etc. secondary to her recurrent C. difficile colitis as above. (5) COPD (chronic obstructive pulmonary disease) SNOMED Code(s): 50732662 Code(s): J44.9 - CHRONIC OBSTRUCTIVE PULMONARY DISEASE, UNSPECIFIED Status : Chronic Priority: Medium Current Visit: Yes Qualifiers: COPD type: emphysema Emphysema type: panlobular Qualified Code(s): J43.1 - Panlobular emphysema Annotation/Comment:: As above. O2 dependent COPD stable by history with no bronchitic symptoms at this time. Continue current medical therapy. Note chronic bilateral lower lobe atelectasis with incentive spirometry and current O2 therapy at 3 L/m by nasal cannula. No evidence of pneumonia or significant bronchitis despite chest x-ray report on 04/25/20. Patient does have a previous history of distant postoperative respiratory distress, although no complications after previous dental surgery. (6) Hyperglycemia SNOMED Code(s): 40185611 Code(s): R73.9 - HYPERGLYCEMIA, UNSPECIFIED Status: Chronic Priority: Medium Current Visit: Yes Onset Date: 06/29/15 Annotation/Comment:: Hemoglobin A1c normal at 5.2% on 04/25/20. Dietary consultation is in effect with excellent intentional weight loss in recent months as above. (7) Hyperlipidemia SNOMED Code(s): 42829898 Code(s): E78.5 - HYPERLIPIDEMIA, UNSPECIFIED Status: Chronic Priority: Medium Current Visit: Yes Annotation/Comment:: As above. Previous history of severe dyslipidemia with aggressive medical therapy at this time. Dietary compliance has improved with intentional weight loss as above. No change in medical therapy for now with previous history of CPK elevation. (8) Hypothyroidism SNOMED Code(s): 01975893 Code(s): E03.9 - HYPOTHYROIDISM, UNSPECIFIED Status: Chronic Priority: Medium Current Visit: Yes Annotation/Comment:: TSH normal on 04/25/20. No other thyroid type symptoms. (9) Mixed anxiety and depressive disorder SNOMED Code(s): 619415947 Code(s): F41.8 - OTHER SPECIFIED ANXIETY DISORDERS Status: Chronic Priority: Medium Current Visit: Yes Annotation/Comment:: Stable by history from the patient and nursing staff. Previous worsening of her anxiety depression disorder with Wellbutrin SR therapy increased on 12/21/19. By my clinical evaluation her symptoms have improved since that time, although she still needs to be watched closely by nursing staff, etc.. Patient is still relatively active with physical therapy, however she is still often alone in her room. The patient was once again encouraged to become more active with social activities, etc. with nursing staff also encouraged to help the patient be more interactive. (10) Orthostatic hypotension SNOMED Code(s): 80745581 Code(s): I95.1 - ORTHOSTATIC HYPOTENSION Status: Chronic Priority: Medium Current Visit: Yes Annotation/Comment:: No recent falls or injuries. Previous problems with recurrent falls including right ankle fracture on . The patient and nursing staff are continuing strict compliance with previously ordered fall precautions, walker use, etc. Continue activity restrictions as per physical therapy, and occupational therapy. Continue current Florinef with otherwise relatively stable decreased systolic blood pressures. No change in therapy. (11) Tardive dyskinesia SNOMED Code(s): 886979767 Code(s): G24.01 - DRUG INDUCED SUBACUTE DYSKINESIA Status: Chronic Priority: Medium Current Visit: Yes Annotation/Comment:: Stable by history. Her perioral tardive dyskinesia actually increased after discontinuation of previous chronic Reglan therapy with no other aggravating medications noted. Neurological status is otherwise stable.. Note that patient does have complete dentures uppers and lowers, which does tend to aggravate her problem. No significant clinical relevance at this time with no change in medical therapy for now. (12) Hypoalbuminemia SNOMED Code(s): 984728803 Code(s): E88.09 - [facility] DISORDERS OF PLASMA-PROTEIN METABOLISM, NEC Status: Chronic Priority: Medium Current Visit: Yes Annotation/Comment:: Glucerna high-protein has been discontinued per recommendations from dietitian secondary to persistent weight gain. Continue high-protein diet as above. Observe for now. Her albumin and total protein were still decreased in 04/25/20. (13) Macrocytosis SNOMED Code(s): 269483615 Code(s): D75.89 - OTHER SPECIFIED DISEASES OF BLOOD AND BLOOD-FORMING ORGANS Status: Chronic Priority: High Current Visit: Yes Onset Date: 06/29/15 Annotation/Comment:: No anemia with persistent macrocytosis however mildly elevated vitamin B 12 and normal folic acid levels 04/25/20. Mild stable intermittent thrombocytopenia, which is currently nonproblematic. Continue routine blood work and vitamin B-12 supplementation. (14) Osteoarthritis SNOMED Code(s): 474205942 Code(s): M19.90 - UNSPECIFIED OSTEOARTHRITIS, UNSPECIFIED SITE Status: Chronic Priority: Medium Current Visit: Yes Annotation/Comment:: No complaints today with previous intermittent mild generalized arthralgias, however nonproblematic at this time with the patient nonsymptomatic despite discontinuation of Ultram. PT in effect as above. Note status post bilateral ankle ORIF secondary to fractures. Previous recurrent falls in February 2019 have improved with no recent significant falls or injuries. (15) Peptic reflux disease SNOMED Code(s): 952251525 Code(s): K21.9 - GASTRO-ESOPHAGEAL REFLUX DISEASE WITHOUT ESOPHAGITIS Status: Chronic Priority: Medium Current Visit: Yes Annotation/Comment:: Continue Tums as above. (16) Iron deficiency SNOMED Code(s): 73690208 Code(s): E61.1 - IRON DEFICIENCY Status: Acute Priority: Medium Current Visit: Yes Onset Date: ~04/25/20 Annotation/Comment:: Note mild iron deficiency with additional decreased TIBC likely secondary to her hypoalbuminemia. Iron supplementation with caution secondary to her previous history of constipation. - Problem List Review Problem List Initiated/Reviewed/Updated: Yes - Assessment Assessment:: As above - Plan Plan:: As above. Patient is also recertified for an additional 2 months of swing bed care with chronic placement secondary to multiple illnesses as above. Yearly Blood work, etc. to be repeated in 2 months at time of next rounds.
[2020-04-26] MEDS: Acetaminophen 325 MG Tab PO PRN ×2 (15:08→19:30)
[2020-04-26] MEDS: Levothyroxine Sodium 137 MCG TABLET PO SCH (19:28)
[2020-04-26] MEDS: BUPROPION XL 300MG PO SCH (19:29)
[2020-04-26] MEDS: Simvastatin 10 MG Tab PO SCH (19:29)
[2020-04-26] MEDS: Menthol/Methyl Salicylate 85 GM Tube TOP PRN (19:29)
[2020-04-27] MEDS: Citalopram 20 MG Tab PO SCH (07:39)
[2020-04-27] MEDS: Ferrous Sulfate 325 MG Tab PO SCH (07:40)
[2020-04-27] MEDS: Fludrocortisone 0.1 MG Tab PO SCH ×2 (07:40→19:15)
[2020-04-27] MEDS: Albuterol/Ipratropium 3.0-0.5 MG/3 ML Neb Soln NEB SCH ×4 (07:40→19:14)
[2020-04-27] MEDS: Potassium Chloride 20 MEQ Tab.ER PO SCH ×4 (07:41→19:15)
[2020-04-27] MEDS: Furosemide 20 MG Tab PO SCH ×2 (07:41→17:22)
[2020-04-27] MEDS: Niacin 500 MG Tab PO SCH ×2 (07:43→17:22)
[2020-04-27] MEDS: Calcium Carbonate 750 MG Tab.Chew PO SCH (07:44)
[2020-04-27] MEDS: Cyanocobalamin (Vitamin B12) 1,000 MCG Tab PO SCH (07:44)
[2020-04-27] MEDS: Cholecalciferol (Vitamin D3) 25 MCG Tab PO SCH (07:44)
[2020-04-27] MEDS: Acetaminophen 325 MG Tab PO PRN ×2 (07:51→15:36)
[2020-04-27] MEDS: BUPROPION XL 300MG PO SCH (19:15)
[2020-04-27] MEDS: Simvastatin 10 MG Tab PO SCH (19:15)
[2020-04-27] MEDS: Levothyroxine Sodium 137 MCG TABLET PO SCH (19:15)
[2020-04-28] MEDS: Acetaminophen 325 MG Tab PO PRN ×2 (01:14→07:49)
[2020-04-28] MEDS: Citalopram 20 MG Tab PO SCH (07:44)
[2020-04-28] MEDS: Albuterol/Ipratropium 3.0-0.5 MG/3 ML Neb Soln NEB SCH ×4 (07:45→19:31)
[2020-04-28] MEDS: Ferrous Sulfate 325 MG Tab PO SCH (07:45)
[2020-04-28] MEDS: Fludrocortisone 0.1 MG Tab PO SCH ×2 (07:46→19:31)
[2020-04-28] MEDS: Potassium Chloride 20 MEQ Tab.ER PO SCH ×4 (07:46→19:32)
[2020-04-28] MEDS: Furosemide 20 MG Tab PO SCH ×2 (07:47→17:49)
[2020-04-28] MEDS: Niacin 500 MG Tab PO SCH ×2 (07:47→17:50)
[2020-04-28] MEDS: Calcium Carbonate 750 MG Tab.Chew PO SCH (07:47)
[2020-04-28] MEDS: Cyanocobalamin (Vitamin B12) 1,000 MCG Tab PO SCH (07:48)
[2020-04-28] MEDS: Cholecalciferol (Vitamin D3) 25 MCG Tab PO SCH (07:48)
[2020-04-28] MEDS: Menthol/Methyl Salicylate 85 GM Tube TOP PRN (09:07)
[2020-04-28] MEDS: Levothyroxine Sodium 137 MCG TABLET PO SCH (19:32)
[2020-04-28] MEDS: BUPROPION XL 300MG PO SCH (19:33)
[2020-04-28] MEDS: Simvastatin 10 MG Tab PO SCH (19:33)
[2020-04-29] MEDS: Citalopram 20 MG Tab PO SCH (08:03)
[2020-04-29] MEDS: Fludrocortisone 0.1 MG Tab PO SCH ×2 (08:04→19:22)
[2020-04-29] MEDS: Albuterol/Ipratropium 3.0-0.5 MG/3 ML Neb Soln NEB SCH ×4 (08:04→19:19)
[2020-04-29] MEDS: Ferrous Sulfate 325 MG Tab PO SCH (08:04)
[2020-04-29] MEDS: Niacin 500 MG Tab PO SCH ×2 (08:05→17:25)
[2020-04-29] MEDS: Potassium Chloride 20 MEQ Tab.ER PO SCH ×4 (08:05→19:22)
[2020-04-29] MEDS: Furosemide 20 MG Tab PO SCH ×2 (08:05→17:25)
[2020-04-29] MEDS: Cholecalciferol (Vitamin D3) 25 MCG Tab PO SCH (08:06)
[2020-04-29] MEDS: Calcium Carbonate 750 MG Tab.Chew PO SCH (08:06)
[2020-04-29] MEDS: Cyanocobalamin (Vitamin B12) 1,000 MCG Tab PO SCH (08:06)
[2020-04-29] MEDS: Acetaminophen 325 MG Tab PO PRN (08:07)
[2020-04-29] MEDS: BUPROPION XL 300MG PO SCH (19:23)
[2020-04-29] MEDS: Simvastatin 10 MG Tab PO SCH (19:23)
[2020-04-29] MEDS: Levothyroxine Sodium 137 MCG TABLET PO SCH (19:23)
[2020-04-30] MEDS: Citalopram 20 MG Tab PO SCH (08:10)
[2020-04-30] MEDS: Albuterol/Ipratropium 3.0-0.5 MG/3 ML Neb Soln NEB SCH ×4 (08:11→19:26)
[2020-04-30] MEDS: Ferrous Sulfate 325 MG Tab PO SCH (08:11)
[2020-04-30] MEDS: Fludrocortisone 0.1 MG Tab PO SCH ×2 (08:12→19:26)
[2020-04-30] MEDS: Furosemide 20 MG Tab PO SCH ×2 (08:12→18:19)
[2020-04-30] MEDS: Potassium Chloride 20 MEQ Tab.ER PO SCH ×4 (08:12→19:26)
[2020-04-30] MEDS: Calcium Carbonate 750 MG Tab.Chew PO SCH (08:13)
[2020-04-30] MEDS: Niacin 500 MG Tab PO SCH ×2 (08:13→18:21)
[2020-04-30] MEDS: Cyanocobalamin (Vitamin B12) 1,000 MCG Tab PO SCH (08:14)
[2020-04-30] MEDS: Cholecalciferol (Vitamin D3) 25 MCG Tab PO SCH (08:14)
[2020-04-30] MEDS: Acetaminophen 325 MG Tab PO PRN ×2 (08:15→18:20)
[2020-04-30] MEDS: Levothyroxine Sodium 137 MCG TABLET PO SCH (19:27)
[2020-04-30] MEDS: BUPROPION XL 300MG PO SCH (19:27)
[2020-04-30] MEDS: Simvastatin 10 MG Tab PO SCH (19:27)
[2020-05-01] MEDS: Furosemide 20 MG Tab PO SCH ×2 (08:05→17:25)
[2020-05-01] MEDS: Albuterol/Ipratropium 3.0-0.5 MG/3 ML Neb Soln NEB SCH ×4 (08:05→19:16)
[2020-05-01] MEDS: Potassium Chloride 20 MEQ Tab.ER PO SCH ×4 (08:06→19:16)
[2020-05-01] MEDS: Fludrocortisone 0.1 MG Tab PO SCH ×2 (08:07→19:16)
[2020-05-01] MEDS: Ferrous Sulfate 325 MG Tab PO SCH (08:07)
[2020-05-01] MEDS: Citalopram 20 MG Tab PO SCH (08:07)
[2020-05-01] MEDS: Calcium Carbonate 750 MG Tab.Chew PO SCH (08:08)
[2020-05-01] MEDS: Niacin 500 MG Tab PO SCH ×2 (08:08→17:26)
[2020-05-01] MEDS: Cyanocobalamin (Vitamin B12) 1,000 MCG Tab PO SCH (08:10)
[2020-05-01] MEDS: Cholecalciferol (Vitamin D3) 25 MCG Tab PO SCH (08:10)
[2020-05-01] MEDS: Levothyroxine Sodium 137 MCG TABLET PO SCH (19:16)
[2020-05-01] MEDS: Menthol/Methyl Salicylate 85 GM Tube TOP PRN (19:17)
[2020-05-01] MEDS: BUPROPION XL 300MG PO SCH (19:17)
[2020-05-01] MEDS: Simvastatin 10 MG Tab PO SCH (19:17)
[2020-05-01] MEDS: Acetaminophen 325 MG Tab PO PRN (19:18)
[2020-05-02] MEDS: Albuterol/Ipratropium 3.0-0.5 MG/3 ML Neb Soln NEB SCH ×4 (07:48→19:18)
[2020-05-02] MEDS: Citalopram 20 MG Tab PO SCH (07:48)
[2020-05-02] MEDS: Fludrocortisone 0.1 MG Tab PO SCH ×2 (07:49→19:18)
[2020-05-02] MEDS: Ferrous Sulfate 325 MG Tab PO SCH (07:49)
[2020-05-02] MEDS: Potassium Chloride 20 MEQ Tab.ER PO SCH ×4 (07:49→19:18)
[2020-05-02] MEDS: Furosemide 20 MG Tab PO SCH ×2 (07:50→17:25)
[2020-05-02] MEDS: Niacin 500 MG Tab PO SCH ×2 (07:50→17:25)
[2020-05-02] MEDS: Cholecalciferol (Vitamin D3) 25 MCG Tab PO SCH (07:51)
[2020-05-02] MEDS: Cyanocobalamin (Vitamin B12) 1,000 MCG Tab PO SCH (07:51)
[2020-05-02] MEDS: Calcium Carbonate 750 MG Tab.Chew PO SCH (07:51)
[2020-05-02] MEDS: Acetaminophen 325 MG Tab PO PRN ×2 (12:00→19:20)
[2020-05-02] MEDS: Levothyroxine Sodium 137 MCG TABLET PO SCH (19:18)
[2020-05-02] MEDS: Menthol/Methyl Salicylate 85 GM Tube TOP PRN (19:19)
[2020-05-02] MEDS: BUPROPION XL 300MG PO SCH (19:19)
[2020-05-02] MEDS: Simvastatin 10 MG Tab PO SCH (19:19)
[2020-05-03] MEDS: Albuterol/Ipratropium 3.0-0.5 MG/3 ML Neb Soln NEB SCH ×4 (08:40→19:37)
[2020-05-03] MEDS: Citalopram 20 MG Tab PO SCH (08:40)
[2020-05-03] MEDS: Potassium Chloride 20 MEQ Tab.ER PO SCH ×4 (08:41→19:38)
[2020-05-03] MEDS: Fludrocortisone 0.1 MG Tab PO SCH ×2 (08:41→19:38)
[2020-05-03] MEDS: Ferrous Sulfate 325 MG Tab PO SCH (08:41)
[2020-05-03] MEDS: Furosemide 20 MG Tab PO SCH ×2 (08:42→17:25)
[2020-05-03] MEDS: Niacin 500 MG Tab PO SCH ×2 (08:43→17:25)
[2020-05-03] MEDS: Calcium Carbonate 750 MG Tab.Chew PO SCH (08:43)
[2020-05-03] MEDS: Cyanocobalamin (Vitamin B12) 1,000 MCG Tab PO SCH (08:44)
[2020-05-03] MEDS: Cholecalciferol (Vitamin D3) 25 MCG Tab PO SCH (08:44)
[2020-05-03] MEDS: Acetaminophen 325 MG Tab PO PRN ×2 (08:46→19:39)
[2020-05-03] MEDS: BUPROPION XL 300MG PO SCH (19:39)
[2020-05-03] MEDS: Simvastatin 10 MG Tab PO SCH (19:39)
[2020-05-03] MEDS: Levothyroxine Sodium 137 MCG TABLET PO SCH (19:39)
[2020-05-03] MEDS: Menthol/Methyl Salicylate 85 GM Tube TOP PRN (19:40)
[2020-05-04] MEDS: Furosemide 20 MG Tab PO SCH ×2 (08:21→17:22)
[2020-05-04] MEDS: Potassium Chloride 20 MEQ Tab.ER PO SCH ×4 (08:21→19:26)
[2020-05-04] MEDS: Albuterol/Ipratropium 3.0-0.5 MG/3 ML Neb Soln NEB SCH ×4 (08:22→19:24)
[2020-05-04] MEDS: Fludrocortisone 0.1 MG Tab PO SCH ×2 (08:22→19:25)
[2020-05-04] MEDS: Citalopram 20 MG Tab PO SCH (08:22)
[2020-05-04] MEDS: Ferrous Sulfate 325 MG Tab PO SCH (08:23)
[2020-05-04] MEDS: Niacin 500 MG Tab PO SCH ×2 (08:23→17:22)
[2020-05-04] MEDS: Calcium Carbonate 750 MG Tab.Chew PO SCH (08:23)
[2020-05-04] MEDS: Cholecalciferol (Vitamin D3) 25 MCG Tab PO SCH (08:23)
[2020-05-04] MEDS: Acetaminophen 325 MG Tab PO PRN ×2 (08:24→17:25)
[2020-05-04] MEDS: Cyanocobalamin (Vitamin B12) 1,000 MCG Tab PO SCH (08:24)
[2020-05-04] MEDS: BUPROPION XL 300MG PO SCH (19:26)
[2020-05-04] MEDS: Levothyroxine Sodium 137 MCG TABLET PO SCH (19:26)
[2020-05-04] MEDS: Simvastatin 10 MG Tab PO SCH (19:27)
[2020-05-05] MEDS: Citalopram 20 MG Tab PO SCH (07:47)
[2020-05-05] MEDS: Ferrous Sulfate 325 MG Tab PO SCH (07:47)
[2020-05-05] MEDS: Potassium Chloride 20 MEQ Tab.ER PO SCH ×4 (07:47→19:22)
[2020-05-05] MEDS: Fludrocortisone 0.1 MG Tab PO SCH ×2 (07:47→19:22)
[2020-05-05] MEDS: Albuterol/Ipratropium 3.0-0.5 MG/3 ML Neb Soln NEB SCH ×4 (07:47→19:22)
[2020-05-05] MEDS: Niacin 500 MG Tab PO SCH ×2 (07:48→17:04)
[2020-05-05] MEDS: Calcium Carbonate 750 MG Tab.Chew PO SCH (07:48)
[2020-05-05] MEDS: Furosemide 20 MG Tab PO SCH ×2 (07:48→17:03)
[2020-05-05] MEDS: Acetaminophen 325 MG Tab PO PRN ×2 (07:49→15:25)
[2020-05-05] MEDS: Cyanocobalamin (Vitamin B12) 1,000 MCG Tab PO SCH (07:49)
[2020-05-05] MEDS: Cholecalciferol (Vitamin D3) 25 MCG Tab PO SCH (07:49)
[2020-05-05] MEDS: BUPROPION XL 300MG PO SCH (19:22)
[2020-05-05] MEDS: Levothyroxine Sodium 137 MCG TABLET PO SCH (19:22)
[2020-05-05] MEDS: Simvastatin 10 MG Tab PO SCH (19:23)
[2020-05-05] MEDS: Menthol/Methyl Salicylate 85 GM Tube TOP PRN (19:23)
[2020-05-05] MEDS: IBUPROFEN 600 MG PO PRN (19:24)
[2020-05-06] MEDS: Acetaminophen 325 MG Tab PO PRN ×3 (04:47→19:22)
[2020-05-06] MEDS: Albuterol/Ipratropium 3.0-0.5 MG/3 ML Neb Soln NEB SCH ×4 (07:42→19:21)
[2020-05-06] MEDS: Citalopram 20 MG Tab PO SCH (07:42)
[2020-05-06] MEDS: Ferrous Sulfate 325 MG Tab PO SCH (07:42)
[2020-05-06] MEDS: Fludrocortisone 0.1 MG Tab PO SCH ×2 (07:43→19:21)
[2020-05-06] MEDS: Potassium Chloride 20 MEQ Tab.ER PO SCH ×4 (07:43→19:21)
[2020-05-06] MEDS: Furosemide 20 MG Tab PO SCH ×2 (07:43→17:04)
[2020-05-06] MEDS: Cholecalciferol (Vitamin D3) 25 MCG Tab PO SCH (07:44)
[2020-05-06] MEDS: Niacin 500 MG Tab PO SCH ×2 (07:44→17:04)
[2020-05-06] MEDS: Cyanocobalamin (Vitamin B12) 1,000 MCG Tab PO SCH (07:44)
[2020-05-06] MEDS: Calcium Carbonate 750 MG Tab.Chew PO SCH (07:44)
[2020-05-06] MEDS: Levothyroxine Sodium 137 MCG TABLET PO SCH (19:22)
[2020-05-06] MEDS: Simvastatin 10 MG Tab PO SCH (19:22)
[2020-05-06] MEDS: BUPROPION XL 300MG PO SCH (19:22)
[2020-05-06] MEDS: Menthol/Methyl Salicylate 85 GM Tube TOP PRN (19:23)
[2020-05-07] MEDS: Acetaminophen 325 MG Tab PO PRN ×3 (04:18→19:25)
[2020-05-07] MEDS: Menthol/Methyl Salicylate 85 GM Tube TOP PRN ×2 (04:19→19:28)
[2020-05-07] MEDS: Albuterol/Ipratropium 3.0-0.5 MG/3 ML Neb Soln NEB SCH ×4 (07:37→19:21)
[2020-05-07] MEDS: Ferrous Sulfate 325 MG Tab PO SCH (07:38)
[2020-05-07] MEDS: Fludrocortisone 0.1 MG Tab PO SCH ×2 (07:38→19:21)
[2020-05-07] MEDS: Citalopram 20 MG Tab PO SCH (07:39)
[2020-05-07] MEDS: Potassium Chloride 20 MEQ Tab.ER PO SCH ×4 (07:39→19:22)
[2020-05-07] MEDS: Furosemide 20 MG Tab PO SCH ×2 (07:39→17:07)
[2020-05-07] MEDS: Cyanocobalamin (Vitamin B12) 1,000 MCG Tab PO SCH (07:40)
[2020-05-07] MEDS: Calcium Carbonate 750 MG Tab.Chew PO SCH (07:40)
[2020-05-07] MEDS: Niacin 500 MG Tab PO SCH ×2 (07:40→17:07)
[2020-05-07] MEDS: Cholecalciferol (Vitamin D3) 25 MCG Tab PO SCH (07:40)
[2020-05-07] MEDS: Levothyroxine Sodium 137 MCG TABLET PO SCH (19:22)
[2020-05-07] MEDS: Simvastatin 10 MG Tab PO SCH (19:23)
[2020-05-07] MEDS: BUPROPION XL 300MG PO SCH (19:23)
[2020-05-08] MEDS: Albuterol/Ipratropium 3.0-0.5 MG/3 ML Neb Soln NEB SCH ×4 (08:05→19:26)
[2020-05-08] MEDS: Citalopram 20 MG Tab PO SCH (08:05)
[2020-05-08] MEDS: Ferrous Sulfate 325 MG Tab PO SCH (08:05)
[2020-05-08] MEDS: Potassium Chloride 20 MEQ Tab.ER PO SCH ×4 (08:06→19:27)
[2020-05-08] MEDS: Fludrocortisone 0.1 MG Tab PO SCH ×2 (08:06→19:26)
[2020-05-08] MEDS: Furosemide 20 MG Tab PO SCH ×2 (08:07→17:22)
[2020-05-08] MEDS: Niacin 500 MG Tab PO SCH ×2 (08:07→17:22)
[2020-05-08] MEDS: Cholecalciferol (Vitamin D3) 25 MCG Tab PO SCH (08:08)
[2020-05-08] MEDS: Calcium Carbonate 750 MG Tab.Chew PO SCH (08:08)
[2020-05-08] MEDS: Cyanocobalamin (Vitamin B12) 1,000 MCG Tab PO SCH (08:08)
[2020-05-08] MEDS: Acetaminophen 325 MG Tab PO PRN ×2 (08:09→19:28)
[2020-05-08] MEDS: Levothyroxine Sodium 137 MCG TABLET PO SCH (19:27)
[2020-05-08] MEDS: BUPROPION XL 300MG PO SCH (19:27)
[2020-05-08] MEDS: Simvastatin 10 MG Tab PO SCH (19:27)
[2020-05-08] MEDS: Menthol/Methyl Salicylate 85 GM Tube TOP PRN (19:28)
[2020-05-09] MEDS: Citalopram 20 MG Tab PO SCH (07:21)
[2020-05-09] MEDS: Ferrous Sulfate 325 MG Tab PO SCH (07:22)
[2020-05-09] MEDS: Fludrocortisone 0.1 MG Tab PO SCH ×2 (07:22→21:39)
[2020-05-09] MEDS: Potassium Chloride 20 MEQ Tab.ER PO SCH ×4 (07:22→21:39)
[2020-05-09] MEDS: Albuterol/Ipratropium 3.0-0.5 MG/3 ML Neb Soln NEB SCH ×4 (07:22→21:38)
[2020-05-09] MEDS: Furosemide 20 MG Tab PO SCH ×2 (07:23→17:09)
[2020-05-09] MEDS: Calcium Carbonate 750 MG Tab.Chew PO SCH (07:23)
[2020-05-09] MEDS: Niacin 500 MG Tab PO SCH ×2 (07:23→17:09)
[2020-05-09] MEDS: Cyanocobalamin (Vitamin B12) 1,000 MCG Tab PO SCH (07:24)
[2020-05-09] MEDS: Cholecalciferol (Vitamin D3) 25 MCG Tab PO SCH (07:24)
[2020-05-09] MEDS: Acetaminophen 325 MG Tab PO PRN ×2 (07:29→15:01)
[2020-05-09] MEDS: Levothyroxine Sodium 137 MCG TABLET PO SCH (21:39)
[2020-05-09] MEDS: Simvastatin 10 MG Tab PO SCH (21:40)
[2020-05-09] MEDS: BUPROPION XL 300MG PO SCH (21:40)
[2020-05-10] MEDS: Albuterol/Ipratropium 3.0-0.5 MG/3 ML Neb Soln NEB SCH ×4 (08:20→19:13)
[2020-05-10] MEDS: Ferrous Sulfate 325 MG Tab PO SCH (08:20)
[2020-05-10] MEDS: Potassium Chloride 20 MEQ Tab.ER PO SCH ×4 (08:20→19:13)
[2020-05-10] MEDS: Calcium Carbonate 750 MG Tab.Chew PO SCH (08:20)
[2020-05-10] MEDS: Niacin 500 MG Tab PO SCH ×2 (08:20→17:06)
[2020-05-10] MEDS: Cholecalciferol (Vitamin D3) 25 MCG Tab PO SCH (08:20)
[2020-05-10] MEDS: Furosemide 20 MG Tab PO SCH ×2 (08:20→17:06)
[2020-05-10] MEDS: Cyanocobalamin (Vitamin B12) 1,000 MCG Tab PO SCH (08:20)
[2020-05-10] MEDS: Citalopram 20 MG Tab PO SCH (08:20)
[2020-05-10] MEDS: Fludrocortisone 0.1 MG Tab PO SCH ×2 (08:20→19:13)
[2020-05-10] MEDS: IBUPROFEN 600 MG PO PRN (11:16)
[2020-05-10] MEDS: BUPROPION XL 300MG PO SCH (19:14)
[2020-05-10] MEDS: Menthol/Methyl Salicylate 85 GM Tube TOP PRN (19:14)
[2020-05-10] MEDS: Simvastatin 10 MG Tab PO SCH (19:14)
[2020-05-10] MEDS: Levothyroxine Sodium 137 MCG TABLET PO SCH (19:14)
[2020-05-10] MEDS: Acetaminophen 325 MG Tab PO PRN (19:15)
[2020-05-11] MEDS: Albuterol/Ipratropium 3.0-0.5 MG/3 ML Neb Soln NEB SCH ×4 (08:20→19:33)
[2020-05-11] MEDS: Citalopram 20 MG Tab PO SCH (08:20)
[2020-05-11] MEDS: Fludrocortisone 0.1 MG Tab PO SCH ×2 (08:21→19:34)
[2020-05-11] MEDS: Ferrous Sulfate 325 MG Tab PO SCH (08:21)
[2020-05-11] MEDS: Potassium Chloride 20 MEQ Tab.ER PO SCH ×4 (08:22→19:34)
[2020-05-11] MEDS: Furosemide 20 MG Tab PO SCH ×2 (08:22→17:57)
[2020-05-11] MEDS: Calcium Carbonate 750 MG Tab.Chew PO SCH (08:23)
[2020-05-11] MEDS: Niacin 500 MG Tab PO SCH ×2 (08:23→17:58)
[2020-05-11] MEDS: Cyanocobalamin (Vitamin B12) 1,000 MCG Tab PO SCH (08:24)
[2020-05-11] MEDS: Cholecalciferol (Vitamin D3) 25 MCG Tab PO SCH (08:24)
[2020-05-11] MEDS: Levothyroxine Sodium 137 MCG TABLET PO SCH (19:35)
[2020-05-11] MEDS: BUPROPION XL 300MG PO SCH (19:35)
[2020-05-11] MEDS: Simvastatin 10 MG Tab PO SCH (19:35)
[2020-05-12] MEDS: Fludrocortisone 0.1 MG Tab PO SCH ×2 (08:12→19:24)
[2020-05-12] MEDS: Citalopram 20 MG Tab PO SCH (08:12)
[2020-05-12] MEDS: Furosemide 20 MG Tab PO SCH ×2 (08:12→17:42)
[2020-05-12] MEDS: Potassium Chloride 20 MEQ Tab.ER PO SCH ×4 (08:12→19:24)
[2020-05-12] MEDS: Albuterol/Ipratropium 3.0-0.5 MG/3 ML Neb Soln NEB SCH ×4 (08:13→19:24)
[2020-05-12] MEDS: Acetaminophen 325 MG Tab PO PRN (08:13)
[2020-05-12] MEDS: Calcium Carbonate 750 MG Tab.Chew PO SCH (08:14)
[2020-05-12] MEDS: Niacin 500 MG Tab PO SCH ×2 (08:14→17:42)
[2020-05-12] MEDS: Cyanocobalamin (Vitamin B12) 1,000 MCG Tab PO SCH (08:15)
[2020-05-12] MEDS: Ferrous Sulfate 325 MG Tab PO SCH (08:15)
[2020-05-12] MEDS: Cholecalciferol (Vitamin D3) 25 MCG Tab PO SCH (08:15)
[2020-05-12] MEDS: Levothyroxine Sodium 137 MCG TABLET PO SCH (19:24)
[2020-05-12] MEDS: Simvastatin 10 MG Tab PO SCH (19:25)
[2020-05-12] MEDS: BUPROPION XL 300MG PO SCH (19:25)
[2020-05-13] MEDS: Furosemide 20 MG Tab PO SCH ×2 (07:48→17:26)
[2020-05-13] MEDS: Potassium Chloride 20 MEQ Tab.ER PO SCH ×4 (07:48→19:17)
[2020-05-13] MEDS: Citalopram 20 MG Tab PO SCH (07:49)
[2020-05-13] MEDS: Albuterol/Ipratropium 3.0-0.5 MG/3 ML Neb Soln NEB SCH ×4 (07:49→19:16)
[2020-05-13] MEDS: Ferrous Sulfate 325 MG Tab PO SCH (07:49)
[2020-05-13] MEDS: Fludrocortisone 0.1 MG Tab PO SCH ×2 (07:49→19:17)
[2020-05-13] MEDS: Niacin 500 MG Tab PO SCH ×2 (07:50→17:26)
[2020-05-13] MEDS: Calcium Carbonate 750 MG Tab.Chew PO SCH (07:50)
[2020-05-13] MEDS: Cyanocobalamin (Vitamin B12) 1,000 MCG Tab PO SCH (07:51)
[2020-05-13] MEDS: Cholecalciferol (Vitamin D3) 25 MCG Tab PO SCH (07:51)
[2020-05-13] MEDS: Acetaminophen 325 MG Tab PO PRN ×2 (07:51→17:26)
[2020-05-13] MEDS: Simvastatin 10 MG Tab PO SCH (19:17)
[2020-05-13] MEDS: Levothyroxine Sodium 137 MCG TABLET PO SCH (19:17)
[2020-05-13] MEDS: BUPROPION XL 300MG PO SCH (19:17)
[2020-05-14] MEDS: Fludrocortisone 0.1 MG Tab PO SCH ×2 (08:10→19:35)
[2020-05-14] MEDS: Furosemide 20 MG Tab PO SCH ×2 (08:10→17:26)
[2020-05-14] MEDS: Potassium Chloride 20 MEQ Tab.ER PO SCH ×4 (08:10→19:35)
[2020-05-14] MEDS: Citalopram 20 MG Tab PO SCH (08:10)
[2020-05-14] MEDS: Albuterol/Ipratropium 3.0-0.5 MG/3 ML Neb Soln NEB SCH ×4 (08:11→19:34)
[2020-05-14] MEDS: Calcium Carbonate 750 MG Tab.Chew PO SCH (08:12)
[2020-05-14] MEDS: Niacin 500 MG Tab PO SCH ×2 (08:12→17:26)
[2020-05-14] MEDS: Ferrous Sulfate 325 MG Tab PO SCH (08:12)
[2020-05-14] MEDS: Cyanocobalamin (Vitamin B12) 1,000 MCG Tab PO SCH (08:13)
[2020-05-14] MEDS: Acetaminophen 325 MG Tab PO PRN ×2 (08:13→19:36)
[2020-05-14] MEDS: Cholecalciferol (Vitamin D3) 25 MCG Tab PO SCH (08:13)
[2020-05-14] MEDS: Levothyroxine Sodium 137 MCG TABLET PO SCH (19:35)
[2020-05-14] MEDS: Simvastatin 10 MG Tab PO SCH (19:36)
[2020-05-14] MEDS: BUPROPION XL 300MG PO SCH (19:36)
[2020-05-14] MEDS: Menthol/Methyl Salicylate 85 GM Tube TOP PRN (19:37)
[2020-05-15] MEDS: Albuterol/Ipratropium 3.0-0.5 MG/3 ML Neb Soln NEB SCH ×4 (07:08→19:04)
[2020-05-15] MEDS: Citalopram 20 MG Tab PO SCH (07:08)
[2020-05-15] MEDS: Fludrocortisone 0.1 MG Tab PO SCH ×2 (07:09→19:04)
[2020-05-15] MEDS: Ferrous Sulfate 325 MG Tab PO SCH (07:09)
[2020-05-15] MEDS: Potassium Chloride 20 MEQ Tab.ER PO SCH ×4 (07:09→19:05)
[2020-05-15] MEDS: Calcium Carbonate 750 MG Tab.Chew PO SCH (07:10)
[2020-05-15] MEDS: Furosemide 20 MG Tab PO SCH ×2 (07:10→17:06)
[2020-05-15] MEDS: Niacin 500 MG Tab PO SCH ×2 (07:10→17:06)
[2020-05-15] MEDS: Cyanocobalamin (Vitamin B12) 1,000 MCG Tab PO SCH (07:11)
[2020-05-15] MEDS: Cholecalciferol (Vitamin D3) 25 MCG Tab PO SCH (07:11)
[2020-05-15] MEDS: Acetaminophen 325 MG Tab PO PRN ×2 (07:12→15:05)
[2020-05-15] MEDS: Levothyroxine Sodium 137 MCG TABLET PO SCH (19:05)
[2020-05-15] MEDS: BUPROPION XL 300MG PO SCH (19:05)
[2020-05-15] MEDS: Simvastatin 10 MG Tab PO SCH (19:06)
[2020-05-15] MEDS: IBUPROFEN 600 MG PO PRN (19:06)
[2020-05-16] MEDS: Calcium Carbonate 750 MG Tab.Chew PO SCH (08:12)
[2020-05-16] MEDS: Albuterol/Ipratropium 3.0-0.5 MG/3 ML Neb Soln NEB SCH ×4 (08:12→19:04)
[2020-05-16] MEDS: Citalopram 20 MG Tab PO SCH (08:12)
[2020-05-16] MEDS: Ferrous Sulfate 325 MG Tab PO SCH (08:13)
[2020-05-16] MEDS: Potassium Chloride 20 MEQ Tab.ER PO SCH ×4 (08:13→19:06)
[2020-05-16] MEDS: Furosemide 20 MG Tab PO SCH ×2 (08:13→17:10)
[2020-05-16] MEDS: Niacin 500 MG Tab PO SCH ×2 (08:13→17:10)
[2020-05-16] MEDS: Fludrocortisone 0.1 MG Tab PO SCH ×2 (08:13→19:06)
[2020-05-16] MEDS: Cyanocobalamin (Vitamin B12) 1,000 MCG Tab PO SCH (08:14)
[2020-05-16] MEDS: Cholecalciferol (Vitamin D3) 25 MCG Tab PO SCH (08:14)
[2020-05-16] MEDS: IBUPROFEN 600 MG PO PRN (08:16)
[2020-05-16] MEDS: Acetaminophen 325 MG Tab PO PRN ×2 (11:02→17:11)
[2020-05-16] MEDS: BUPROPION XL 300MG PO SCH (19:07)
[2020-05-16] MEDS: Simvastatin 10 MG Tab PO SCH (19:07)
[2020-05-16] MEDS: Levothyroxine Sodium 137 MCG TABLET PO SCH (19:07)
[2020-05-17] MEDS: Citalopram 20 MG Tab PO SCH (08:06)
[2020-05-17] MEDS: Albuterol/Ipratropium 3.0-0.5 MG/3 ML Neb Soln NEB SCH ×4 (08:06→19:37)
[2020-05-17] MEDS: Fludrocortisone 0.1 MG Tab PO SCH ×2 (08:07→19:37)
[2020-05-17] MEDS: Ferrous Sulfate 325 MG Tab PO SCH (08:07)
[2020-05-17] MEDS: Potassium Chloride 20 MEQ Tab.ER PO SCH ×4 (08:07→19:37)
[2020-05-17] MEDS: Niacin 500 MG Tab PO SCH ×2 (08:08→17:34)
[2020-05-17] MEDS: Furosemide 20 MG Tab PO SCH ×2 (08:08→17:35)
[2020-05-17] MEDS: Calcium Carbonate 750 MG Tab.Chew PO SCH (08:09)
[2020-05-17] MEDS: Cyanocobalamin (Vitamin B12) 1,000 MCG Tab PO SCH (08:10)
[2020-05-17] MEDS: Cholecalciferol (Vitamin D3) 25 MCG Tab PO SCH (08:10)
[2020-05-17] MEDS: Simvastatin 10 MG Tab PO SCH (19:38)
[2020-05-17] MEDS: Levothyroxine Sodium 137 MCG TABLET PO SCH (19:38)
[2020-05-17] MEDS: BUPROPION XL 300MG PO SCH (19:38)
[2020-05-17] MEDS: Menthol/Methyl Salicylate 85 GM Tube TOP PRN (19:39)
[2020-05-17] MEDS: Acetaminophen 325 MG Tab PO PRN (19:40)
[2020-05-18] MEDS: Fludrocortisone 0.1 MG Tab PO SCH ×2 (08:07→19:42)
[2020-05-18] MEDS: Furosemide 20 MG Tab PO SCH ×2 (08:07→17:06)
[2020-05-18] MEDS: Ferrous Sulfate 325 MG Tab PO SCH (08:08)
[2020-05-18] MEDS: Potassium Chloride 20 MEQ Tab.ER PO SCH ×4 (08:08→19:42)
[2020-05-18] MEDS: Citalopram 20 MG Tab PO SCH (08:08)
[2020-05-18] MEDS: Albuterol/Ipratropium 3.0-0.5 MG/3 ML Neb Soln NEB SCH ×4 (08:09→19:41)
[2020-05-18] MEDS: Calcium Carbonate 750 MG Tab.Chew PO SCH (08:09)
[2020-05-18] MEDS: Niacin 500 MG Tab PO SCH ×2 (08:09→17:06)
[2020-05-18] MEDS: Cholecalciferol (Vitamin D3) 25 MCG Tab PO SCH (08:10)
[2020-05-18] MEDS: Cyanocobalamin (Vitamin B12) 1,000 MCG Tab PO SCH (08:10)
[2020-05-18] MEDS: Acetaminophen 325 MG Tab PO PRN ×2 (08:11→19:43)
[2020-05-18] MEDS: Levothyroxine Sodium 137 MCG TABLET PO SCH (19:42)
[2020-05-18] MEDS: BUPROPION XL 300MG PO SCH (19:42)
[2020-05-18] MEDS: Simvastatin 10 MG Tab PO SCH (19:42)
[2020-05-18] MEDS: Menthol/Methyl Salicylate 85 GM Tube TOP PRN (19:44)
[2020-05-19] MEDS: Citalopram 20 MG Tab PO SCH (07:51)
[2020-05-19] MEDS: Albuterol/Ipratropium 3.0-0.5 MG/3 ML Neb Soln NEB SCH ×4 (07:52→19:53)
[2020-05-19] MEDS: Ferrous Sulfate 325 MG Tab PO SCH (07:52)
[2020-05-19] MEDS: Fludrocortisone 0.1 MG Tab PO SCH ×2 (07:53→19:53)
[2020-05-19] MEDS: Furosemide 20 MG Tab PO SCH ×2 (07:54→17:58)
[2020-05-19] MEDS: Potassium Chloride 20 MEQ Tab.ER PO SCH ×4 (07:54→19:54)
[2020-05-19] MEDS: Calcium Carbonate 750 MG Tab.Chew PO SCH (07:55)
[2020-05-19] MEDS: Niacin 500 MG Tab PO SCH ×2 (07:55→17:59)
[2020-05-19] MEDS: Cholecalciferol (Vitamin D3) 25 MCG Tab PO SCH (07:56)
[2020-05-19] MEDS: Cyanocobalamin (Vitamin B12) 1,000 MCG Tab PO SCH (07:56)
[2020-05-19] MEDS: Levothyroxine Sodium 137 MCG TABLET PO SCH (19:54)
[2020-05-19] MEDS: BUPROPION XL 300MG PO SCH (19:54)
[2020-05-19] MEDS: Simvastatin 10 MG Tab PO SCH (19:55)
[2020-05-19] MEDS: Acetaminophen 325 MG Tab PO PRN (19:59)
[2020-05-20] MEDS: Citalopram 20 MG Tab PO SCH (07:17)
[2020-05-20] MEDS: Albuterol/Ipratropium 3.0-0.5 MG/3 ML Neb Soln NEB SCH ×4 (07:18→19:25)
[2020-05-20] MEDS: Fludrocortisone 0.1 MG Tab PO SCH ×2 (07:19→19:27)
[2020-05-20] MEDS: Potassium Chloride 20 MEQ Tab.ER PO SCH ×4 (07:19→19:27)
[2020-05-20] MEDS: Ferrous Sulfate 325 MG Tab PO SCH (07:19)
[2020-05-20] MEDS: Niacin 500 MG Tab PO SCH ×2 (07:20→17:21)
[2020-05-20] MEDS: Furosemide 20 MG Tab PO SCH ×2 (07:20→17:20)
[2020-05-20] MEDS: Calcium Carbonate 750 MG Tab.Chew PO SCH (07:21)
[2020-05-20] MEDS: Cyanocobalamin (Vitamin B12) 1,000 MCG Tab PO SCH (07:21)
[2020-05-20] MEDS: Cholecalciferol (Vitamin D3) 25 MCG Tab PO SCH (07:22)
[2020-05-20] MEDS: Acetaminophen 325 MG Tab PO PRN (17:22)
[2020-05-20] MEDS: Levothyroxine Sodium 137 MCG TABLET PO SCH (19:27)
[2020-05-20] MEDS: BUPROPION XL 300MG PO SCH (19:28)
[2020-05-20] MEDS: Simvastatin 10 MG Tab PO SCH (19:28)
[2020-05-21] MEDS: Albuterol/Ipratropium 3.0-0.5 MG/3 ML Neb Soln NEB SCH ×4 (07:23→19:22)
[2020-05-21] MEDS: Citalopram 20 MG Tab PO SCH (07:23)
[2020-05-21] MEDS: Fludrocortisone 0.1 MG Tab PO SCH ×2 (07:24→19:23)
[2020-05-21] MEDS: Ferrous Sulfate 325 MG Tab PO SCH (07:24)
[2020-05-21] MEDS: Furosemide 20 MG Tab PO SCH ×2 (07:25→17:44)
[2020-05-21] MEDS: Potassium Chloride 20 MEQ Tab.ER PO SCH ×4 (07:25→19:23)
[2020-05-21] MEDS: Niacin 500 MG Tab PO SCH ×2 (07:26→17:44)
[2020-05-21] MEDS: Calcium Carbonate 750 MG Tab.Chew PO SCH (07:26)
[2020-05-21] MEDS: Cyanocobalamin (Vitamin B12) 1,000 MCG Tab PO SCH (07:27)
[2020-05-21] MEDS: Cholecalciferol (Vitamin D3) 25 MCG Tab PO SCH (07:27)
[2020-05-21] MEDS: Acetaminophen 325 MG Tab PO PRN (07:35)
[2020-05-21] MEDS: Levothyroxine Sodium 137 MCG TABLET PO SCH (19:24)
[2020-05-21] MEDS: BUPROPION XL 300MG PO SCH (19:24)
[2020-05-21] MEDS: Simvastatin 10 MG Tab PO SCH (19:25)
[2020-05-22] MEDS: Albuterol/Ipratropium 3.0-0.5 MG/3 ML Neb Soln NEB SCH ×4 (07:39→19:29)
[2020-05-22] MEDS: Citalopram 20 MG Tab PO SCH (07:39)
[2020-05-22] MEDS: Ferrous Sulfate 325 MG Tab PO SCH (07:40)
[2020-05-22] MEDS: Fludrocortisone 0.1 MG Tab PO SCH ×2 (07:40→19:29)
[2020-05-22] MEDS: Potassium Chloride 20 MEQ Tab.ER PO SCH ×4 (07:41→19:29)
[2020-05-22] MEDS: Furosemide 20 MG Tab PO SCH ×2 (07:41→17:38)
[2020-05-22] MEDS: Calcium Carbonate 750 MG Tab.Chew PO SCH (07:42)
[2020-05-22] MEDS: Niacin 500 MG Tab PO SCH ×2 (07:42→17:38)
[2020-05-22] MEDS: Cholecalciferol (Vitamin D3) 25 MCG Tab PO SCH (07:43)
[2020-05-22] MEDS: Cyanocobalamin (Vitamin B12) 1,000 MCG Tab PO SCH (07:43)
[2020-05-22] MEDS: Levothyroxine Sodium 137 MCG TABLET PO SCH (19:29)
[2020-05-22] MEDS: BUPROPION XL 300MG PO SCH (19:30)
[2020-05-22] MEDS: Acetaminophen 325 MG Tab PO PRN (19:30)
[2020-05-22] MEDS: Simvastatin 10 MG Tab PO SCH (19:30)
[2020-05-22] MEDS: Menthol/Methyl Salicylate 85 GM Tube TOP PRN (19:31)
[2020-05-23] MEDS: Acetaminophen 325 MG Tab PO PRN ×2 (01:57→19:32)
[2020-05-23] MEDS: Potassium Chloride 20 MEQ Tab.ER PO SCH ×4 (07:56→19:29)
[2020-05-23] MEDS: Fludrocortisone 0.1 MG Tab PO SCH ×2 (07:56→19:29)
[2020-05-23] MEDS: Furosemide 20 MG Tab PO SCH ×2 (07:57→17:09)
[2020-05-23] MEDS: Niacin 500 MG Tab PO SCH ×2 (07:58→17:09)
[2020-05-23] MEDS: Cyanocobalamin (Vitamin B12) 1,000 MCG Tab PO SCH (07:58)
[2020-05-23] MEDS: Calcium Carbonate 750 MG Tab.Chew PO SCH (07:58)
[2020-05-23] MEDS: Ferrous Sulfate 325 MG Tab PO SCH (07:59)
[2020-05-23] MEDS: Cholecalciferol (Vitamin D3) 25 MCG Tab PO SCH (07:59)
[2020-05-23] MEDS: Albuterol/Ipratropium 3.0-0.5 MG/3 ML Neb Soln NEB SCH ×4 (07:59→19:29)
[2020-05-23] MEDS: Citalopram 20 MG Tab PO SCH (08:00)
[2020-05-23 11:47] VITALS: BP 124/75; PULSE 65
[2020-05-23] MEDS: Simvastatin 10 MG Tab PO SCH (19:30)
[2020-05-23] MEDS: BUPROPION XL 300MG PO SCH (19:30)
[2020-05-23] MEDS: Levothyroxine Sodium 137 MCG TABLET PO SCH (19:30)
[2020-05-23] MEDS: Menthol/Methyl Salicylate 85 GM Tube TOP PRN (19:31)
[2020-05-24] MEDS: Acetaminophen 325 MG Tab PO PRN (00:23)
[2020-05-24] MEDS: Fludrocortisone 0.1 MG Tab PO SCH (07:28)
[2020-05-24] MEDS: Potassium Chloride 20 MEQ Tab.ER PO SCH (07:29)
[2020-05-24] MEDS: Furosemide 20 MG Tab PO SCH (07:29)
[2020-05-24] MEDS: Citalopram 20 MG Tab PO SCH (07:29)
[2020-05-24] MEDS: Calcium Carbonate 750 MG Tab.Chew PO SCH (07:30)
[2020-05-24] MEDS: Niacin 500 MG Tab PO SCH (07:30)
[2020-05-24] MEDS: Albuterol/Ipratropium 3.0-0.5 MG/3 ML Neb Soln NEB SCH (07:30)
[2020-05-24] MEDS: Cholecalciferol (Vitamin D3) 25 MCG Tab PO SCH (07:31)
[2020-05-24] MEDS: Cyanocobalamin (Vitamin B12) 1,000 MCG Tab PO SCH (07:31)
[2020-05-24] MEDS: Ferrous Sulfate 325 MG Tab PO SCH (07:32)
--- NOTE | 2020-05-24 09:22 | PCM.DCSUM1 ---
Discharge Summary - Hospital Course Free Text/Narrative:: The patient is not being discharged from [facility] today with long-term [facility] care required. Secondary to limitations of [employer] a new account number is required. New orders per the new account. Patient was not examined today with diagnoses and treatment plan indicating results from last [facility] rounds. HPI Initial Comments: See admission H&P Brief History: See admission H&P Diagnosis: Stroke: No Modified Black Scale: Mod.Disablility Requiring Some Help,Able to Walk Without Assistance Modified Black Scale Score: 3 - Discharge Data Discharge Date: 05/24/20 Discharge Disposition: DC/Tfer W/I Hosp To [facility] Condition: Fair - Referral to Home Health Primary Care Physician: Fitz Fontanez MD - Discharge Diagnosis/Problem(s) (1) Steinert myotonic dystrophy syndrome SNOMED Code(s): 935405344 ICD Code: G71.11 - MYOTONIC MUSCULAR DYSTROPHY Status: Chronic Priority: Medium Current Visit: Yes Problem Details: Stable by history and today's exam. Physical therapy in effect. Continue current medical therapy. (2) CHF, Congestive heart failure SNOMED Code(s): 11015981 ICD Code: I50.9 - HEART FAILURE, UNSPECIFIED Status: Chronic Priority: Medium Current Visit: Yes Problem Details: Note previous progressive nonspecific bilateral lower lobe atelectasis versus nonspecific changes, right greater than left, with CT scan of the chest performed on 12/29/19. Chest x-ray, PA and lateral, on 04/25/20 shows stable bilateral lower lobe atelectasis with no significant evidence of CHF. Previous CT scan in December as above did show evidence of atelectasis and mild pleural effusions consistent with CHF. No significant CHF by clinical exam today. Yearly blood work, EKG, chest x-ray, etc. were conducted on 04/25/20 and were reviewed by me today. Improved/stable lateral wall cardiac ischemia by EKG since April 2019 with resolved first-degree AV block and stable complete bifascicular bundle-branch block. No chest pain or anginal type symptoms. Stable dependent edema with the patient intentionally losing an additional 1.4 kg with a 9.4 kg total intensional weight loss in the last 6 months. Note previous dietary noncompliance, however much improved. Previous discontinuation of high protein Glucerna supplements as snacks seconda ry to her weight gain. Dietary consultation in effect. Activity level is overall low. An echocardiogram had also been performed on 12/28/19 with excellent ejection fraction of 5060 percent.The patient's CODE STATUS was previously addressed per request from the nursing staff with the patient wishing to continue to be a FULL CODE. Continue to observe closely. Note previous history of PVCs, complete right bundle branch block/bifascicular bundle-branch block, first-degree AV block, severe dyslipidemia hypokalemia, hypophosphatemia, and hyponatremia. Mild persistent hypertriglyceridemia with borderline hypernatremia on 04/25. Note normal magnesium on the potassium, and phosphate levels on 04/25. Continue to observe for now with no further change in medical therapy. Further cardiology workup and/or consultation depending on her clinical course. Note Increase of her Lasix therapy, etc. on 12/21 with overall good clinical results. (3) C. difficile colitis SNOMED Code(s): 875658709 ICD Code: A04.72 - ENTEROCOLITIS D/T CLOSTRIDIUM DIFFICILE, NOT SPCF RECUR Status: Chronic Priority: Medium Current Visit: Yes Onset Date: 02/12/18 Problem Details: No return of her previous diarrhea, etc. Colonoscopy completed on 09/23/19 with excision of a tubular adenoma from the ascending colon. No apparent evidence of significant colitis by this procedure, however I could not find any record of serial biopsies as previously requested. The patient has since been placed off of isolation precautions. Her diarrhea has not returned. 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 Her room has been properly disinfected. Patient has been treated previously with multiple courses of Flagyl and vancomycin with the patient likely a chronic carrier. Central laboratories previously refused repeat stool C. difficile analysis since the patient no longer had diarrhea and that this evaluation may remain positive for several months. This issue was previously brought up in medical staff for further review and discussion with no further follow-up at this time. Continue to observe closely with repeat antibiotic treatment, stool transplant, etc. depending on her clinical course. Avoid reinitiation of H2 histamine receptor blockers, omeprazole therapy, etc. secondary to her history of C. difficile colitis as above. Observe for now with the patient already on 1500 mg of OTC Tums in the a.m.. (4) Gastroesophageal reflux disease SNOMED Code(s): 655469521 ICD Code: K21.9 - GASTRO-ESOPHAGEAL REFLUX DISEASE WITHOUT ESOPHAGITIS Status: Acute Priority: Medium Current Visit: Yes Problem Details: Creased heartburn in the a.m. by nurse's history, although the patient did not complain of this during my visit. Continue her Tums therapy with caution as above. She still does occasionally required ibuprofen therapy. Otherwise stable by history despite discontinuation of Reglan therapy. No other GI medications required at this time with previous discontinuation of Prilosec, etc. secondary to her recurrent C. difficile colitis as above. (5) COPD (chronic obstructive pulmonary disease) SNOMED Code(s): 01479271 ICD Code: J44.9 - CHRONIC OBSTRUCTIVE PULMONARY DISEASE, UNSPECIFIED Status: Chronic Priority: Medium Current Visit: Yes Problem Details: As above. O2 dependent COPD stable by history with no bronchitic symptoms at this time. Continue current medical therapy. Note chronic bilateral lower lobe atelectasis with incentive spirometry and current O2 therapy at 3 L/m by nasal cannula. No evidence of pneumonia or significant bronchitis despite chest x-ray report on 04/25/20. Patient does have a previous history of distant postoperative respiratory distress, although no complications after previous dental surgery. Qualifiers: COPD type: emphysema Emphysema type: panlobular Qualified Code(s): J43.1 - Panlobular emphysema (6) Hyperglycemia SNOMED Code(s): 77191055 ICD Code: R73.9 - HYPERGLYCEMIA, UNSPECIFIED Status: Chronic Priority: Medium Current Visit: Yes Onset Date: 06/29/15 Problem Details: Hemoglobin A1c normal at 5.2% on 04/25/20. Dietary consultation is in effect with excellent intentional weight loss in recent months as above. (7) Hyperlipidemia SNOMED Code(s): 61692210 ICD Code: E78.5 - HYPERLIPIDEMIA, UNSPECIFIED Status: Chronic Priority: Medium Current Visit: Yes Problem Details: As above. Previous history of severe dyslipidemia with aggressive medical therapy at this time. Dietary compliance has improved with intentional weight loss as above. No change in medical therapy for now with previous history of CPK elevation. (8) Hypothyroidism SNOMED Code(s): 09072396 ICD Code: E03.9 - HYPOTHYROIDISM, UNSPECIFIED Status: Chronic Priority: Medium Current Visit: Yes Problem Details: TSH normal on 04/25/20. No other thyroid type symptoms. (9) Mixed anxiety and depressive disorder SNOMED Code(s): 203547607 ICD Code: F41.8 - OTHER SPECIFIED ANXIETY DISORDERS Status: Chronic Priority: Medium Current Visit: Yes Problem Details: Stable by history from the patient and nursing staff. Previous worsening of her anxiety depression disorder with Wellbutrin SR therapy increased on 12/21/19. By my clinical evaluation her symptoms have improved since that time, although she still needs to be watched closely by nursing staff, etc.. Patient is still relatively active with physical therapy, however she is still often alone in her room. The patient was once again encouraged to become more active with social activities, etc. with nursing staff also encouraged to help the patient be more interactive. (10) Orthostatic hypotension SNOMED Code(s): 03079517 ICD Code: I95.1 - ORTHOSTATIC HYPOTENSION Status: Chronic Priority: Medium Current Visit: Yes Problem Details: No recent falls or injuries. Previous problems with recurrent falls including right ankle fracture on 12/07/16. The patient and nursing staff are continuing strict compliance with previously ordered fall precautions, walker use, etc. Continue activity restrictions as per physical therapy, and occupational therapy. Continue current Florinef with otherwise relatively stable decreased systolic blood pressures. No change in therapy. (11) Tardive dyskinesia SNOMED Code(s): 365663546 ICD Code: G24.01 - DRUG INDUCED SUBACUTE DYSKINESIA Status: Chronic Priority: Medium Current Visit: Yes Problem Details: Stable by history. Her perioral tardive dyskinesia actually increased after discontinuation of previous chronic Reglan therapy with no other aggravating medications noted. Neurological status is otherwise stable.. Note that patient does have complete dentures uppers and lowers, which does tend to aggravate her problem. No significant clinical relevance at this time with no change in medical therapy for now. (12) Hypoalbuminemia SNOMED Code(s): 630958337 ICD Code: E88.09 - OTH DISORDERS OF PLASMA-PROTEIN METABOLISM, NEC Status: Chronic Priority: Medium Current Visit: Yes Problem Details: Glucerna high-protein has been discontinued per recommendations from dietitian secondary to persistent weight gain. Continue high-protein diet as above. Observe for now. Her albumin and total protein were still decreased in 04/25/20. (13) Macrocytosis SNOMED Code(s): 778532776 ICD Code: D75.89 - OTHER SPECIFIED DISEASES OF BLOOD AND BLOOD-FORMING ORGANS Status: Chronic Priority: High Current Visit: Yes Onset Date: 06/29/15 Problem Details: No anemia with persistent macrocytosis however mildly elevated vitamin B 12 and normal folic acid levels 04/25/20. Mild stable intermittent thrombocytopenia, which is currently nonproblematic. Continue routine blood work and vitamin B-12 supplementation. (14) Osteoarthritis SNOMED Code(s): 229768587 ICD Code: M19.90 - UNSPECIFIED OSTEOARTHRITIS, UNSPECIFIED SITE Status: Chronic Priority: Medium Current Visit: Yes Problem Details: No complaints today with previous intermittent mild generalized arthralgias, however nonproblematic at this time with the patient nonsymptomatic despite discontinuation of Ultram. PT in effect as above. Note status post bilateral ankle ORIF secondary to fractures. Previous recurrent falls in February 2019 have improved with no recent significant falls or injuries. (15) Peptic reflux disease SNOMED Code(s): 658490781 ICD Code: K21.9 - GASTRO-ESOPHAGEAL REFLUX DISEASE WITHOUT ESOPHAGITIS Status: Chronic Priority: Medium Current Visit: Yes Problem Details: Continue Tums as above. (16) Iron deficiency SNOMED Code(s): 58073841 ICD Code: E61.1 - IRON DEFICIENCY Status: Acute Priority: Medium Current Visit: Yes Onset Date: ~04/25/20 Problem Details: Note mild iron deficiency with additional decreased TIBC likely secondary to her hypoalbuminemia. Iron supplementation with caution secondary to her previous history of constipation. - Patient Summary/Data Consults: Consultations 05/24/19 09:32 Consult to Case Management [CONS] Routine Consult to Dietary [Consult to Sheriffs Officer] [CONS] Routine Consult to Sheriffs Officer [CONS] Routine Consult to Physical Therapy [PT Evaluation and Treatment] [CONS] Routine OT Evaluation and Treatment [CONS] Routine PT Evaluation and Treatment [CONS] Routine PT Evaluation and Treatment [CONS] Routine 07/29/19 09:05 Consult to Physician [CONS] Routine 08/26/19 08:10 Consult to Physician [CONS] Routine - Discharge Plan *PRESCRIPTION DRUG MONITORING PROGRAM REVIEWED*: Not Applicable *COPY OF PRESCRIPTION DRUG MONITORING REPORT IN PATIENT BREANNE: Not Applicable Prescriptions/Med Rec: Diphenoxylate HCl/Atropine [Lomotil] 1 each PO TID PRN #30 tablet PRN Reason: Diarrhea Home Medications: Home Meds buPROPion [Wellbutrin] 150 mg PO BEDTIME #45 tablet 11/05/13 [Rx] Acetaminophen 650 mg PO Q6HR PRN 03/16/16 [History] Albuterol/Ipratropium [DuoNeb 3.0-0.5 MG/3 ML] 3 ml NEB BIDRT 03/16/16 [History] Cholecalciferol (Vitamin D3) [Vitamin D3] 1,000 unit PO QAM 03/16/16 [History] Citalopram Hydrobromide [Celexa] 20 mg PO QAM 03/16/16 [History] Cyanocobalamin (Vitamin B-12) [B-12] 1,000 mcg PO QAM 03/16/16 [History] Fludrocortisone [Florinef] 0.1 mg PO BEDTIME 03/16/16 [History] Fludrocortisone [Florinef] 0.2 mg PO QAM 03/16/16 [History] Niacin 500 mg PO BID 03/16/16 [History] Albuterol/Ipratropium [DuoNeb 3.0-0.5 MG/3 ML] 3 ml NEB Q4HRRT PRN 11/25/17 [History] Ibuprofen 600 mg PO Q6H PRN 11/25/17 [History] Levothyroxine [Levothroid] 137 mcg PO BEDTIME 11/25/17 [History] Potassium Chloride 40 meq PO TID@08,14,20 11/25/17 [History] Simvastatin [Zocor] 10 mg PO BEDTIME 11/25/17 [History] Diphenoxylate HCl/Atropine [Lomotil] 1 each PO TID PRN #30 tablet 07/23/19 [Rx] Alum Hydrox/Mag Hydrox/Simeth [Mag-Al Plus] 30 ml PO Q4H PRN 09/23/19 [History] Furosemide [Lasix] 20 mg PO DAILY 09/23/19 [History] Methyl Salicylate [Gordogesic] 0 gm TP QID PRN 09/23/19 [History] - Discharge Summary/Plan Comment DC Time >30 min.: Yes (Coordination of care ) - Patient Data Vitals - Most Recent: Last Vital Signs Temp 36.3 C 05/23/20 20:00 Pulse 65 05/23/20 11:44 Resp 18 05/23/20 11:44 BP 124/75 05/23/20 11:44 Pulse Ox 95 05/23/20 11:44 Weight - Most Recent: 83.098 kg I&O - Last 24 hours: Intake & Output 05/23/20 05/24/20 05/24/20 22:59 06:59 14:59 Intake Total 840 Balance 840 Med Orders - Current: Current Medications Acetaminophen (Tylenol) 650 mg PO Q4H PRN PRN Reason: Pain Last Admin: 05/24/20 00:23 Dose: 650 mg Documented by: Al Hydroxide/Mg Hydroxide (Mag-Al Plus) 30 ml PO Q4H PRN PRN Reason: Indigestion Last Admin: 04/25/20 19:27 Dose: 30 ml Documented by: Albuterol/Ipratropium (Duoneb 3.0-0.5 Mg/3 Ml) 3 ml NEB Q4HRRT PRN PRN Reason: Dyspnea Last Admin: 02/28/20 12:14 Dose: 3 ml Documented by: Albuterol/Ipratropium (Duoneb 3.0-0.5 Mg/3 Ml) 3 ml NEB QIDRT [facility] Last Admin: 05/24/20 07:30 Dose: 3 ml Documented by: Calcium Carbonate/Glycine (Tums Extra Strength) 1,500 mg PO DAILY [facility] Last Admin: 05/24/20 07:30 Dose: 1,500 mg Documented by: Cholecalciferol (Vitamin D3) 25 mcg PO DAILY [facility] Last Admin: 05/24/20 07:31 Dose: 25 mcg Documented by: Citalopram Hydrobromide (Celexa) 20 mg PO QAM [facility] Last Admin: 05/24/20 07:29 Dose: 20 mg Documented by: Cyanocobalamin (Vitamin B12) 1,000 mcg PO QAM [facility] Last Admin: 05/24/20 07:31 Dose: 1,000 mcg Documented by: Ferrous Sulfate (Ferrous Sulfate) 325 mg PO WITHBREAKFAST [facility] Last Admin: 05/24/20 07:32 Dose: 325 mg Documented by: Fludrocortisone Acetate (Florinef) 0.1 mg PO BEDTIME [facility] Last Admin: 05/23/20 19:29 Dose: 0.1 mg Documented by: Fludrocortisone Acetate (Florinef) 0.2 mg PO QAM [facility] Last Admin: 05/24/20 07:28 Dose: 0.2 mg Documented by: Furosemide (Lasix) 20 mg PO BID [facility] Last Admin: 05/24/20 07:29 Dose: 20 mg Documented by: Guaifenesin/Dextromethorphan (Robitussin Dm) 10 ml PO Q4H PRN PRN Reason: Cough Last Admin: 02/14/20 16:48 Dose: 10 ml Documented by: Ibuprofen (Motrin) 600 mg PO Q6H PRN PRN Reason: Breakthrough Pain Last Admin: 05/16/20 08:16 Dose: 600 mg Documented by: Magnesium Hydroxide (Milk Of Magnesia) 30 ml PO DAILY PRN PRN Reason: Constipation Last Admin: 12/18/19 11:36 Dose: 30 ml Documented by: Methyl Salicylate (Icy Hot Cream) 0 gm TOP QID PRN PRN Reason: Pain (mild 1-3) Last Admin: 05/23/20 19:31 Dose: 1 applic Documented by: Niacin (Niacin) 500 mg PO BID [facility] Last Admin: 05/24/20 07:30 Dose: 500 mg Documented by: Levothyroxine Sodium (137 Mcg Tablet) 137 mcg PO BEDTIME [facility] Last Admin: 05/23/20 19:30 Dose: 137 mcg Documented by: Bupropion Xl 300mg 1 each PO BEDTIME [facility] Last Admin: 05/23/20 19:30 Dose: 1 each Documented by: Potassium Chloride (Klor-Con M20) 40 meq PO QID [facility] Last Admin: 05/24/20 07:29 Dose: 40 meq Documented by: Simvastatin (Zocor) 10 mg PO BEDTIME [facility] Last Admin: 05/23/20 19:30 Dose: 10 mg Documented by: Discontinued Medications Albuterol/Ipratropium (Duoneb 3.0-0.5 Mg/3 Ml) 3 ml NEB BIDRT [facility] Last Admin: 12/21/19 07:23 Dose: 3 ml Documented by: Betamethasone/Clotrimazole (Lotrisone) 0 gm TOP Q12HR [facility] Last Admin: 07/23/19 08:20 Dose: 1 applic Documented by: Bisacodyl (Dulcolax) 10 mg PO ONETIME ONE Stop: 09/21/19 18:01 Last Admin: 09/21/19 17:41 Dose: 10 mg Documented by: Bisacodyl (Dulcolax) 10 mg PO ONETIME ONE Stop: 09/22/19 18:01 Last Admin: 09/22/19 17:24 Dose: 10 mg Documented by: Budesonide (Pulmicort) 0.5 mg NEB Q12HR [facility] Stop: 08/06/19 20:01 Last Admin: 08/06/19 19:35 Dose: 0.5 mg Documented by: Bupropion HCl (Wellbutrin) 150 mg PO BEDTIME [facility] Last Admin: 12/20/19 19:28 Dose: 150 mg Documented by: Calcium Carbonate/Glycine (Tums) 500 mg PO TID@0800,1400,2000 [facility] Last Admin: 11/10/19 07:06 Dose: 500 mg Documented by: Cholecalciferol (Vitamin D3) 1,000 mcg PO QAM [facility] Last Admin: 05/26/19 08:49 Dose: Not Given Documented by: Diphenoxylate HCl/Atropine (Lomotil 0.025-2.5 Mg) 1 tab PO TID PRN PRN Reason: Diarrhea Last Admin: 09/29/19 09:52 Dose: 1 tab Documented by: Furosemide (Lasix) 20 mg PO DAILY [facility] Last Admin: 12/21/19 07:24 Dose: 20 mg Documented by: Furosemide (Lasix) 40 mg IM NOW ONE Stop: 01/13/20 14:59 Last Admin: 01/13/20 17:26 Dose: 40 mg Documented by: Guaifenesin/Dextromethorphan (Robitussin Dm) 10 ml PO Q4H PRN PRN Reason: Cough Last Admin: 07/20/19 19:28 Dose: 10 ml Documented by: Guaifenesin/Pseudoephedrine HCl (Mucinex D Er 600-60 Mg) 1 tab PO Q12H [facility] Stop: 07/31/19 20:01 Last Admin: 07/31/19 19:30 Dose: 1 tab Documented by: Influenza Virus Vaccine (Fluzone Quad 3045-3315 Syringe) 60 mcg IM .ONCE ONE Stop: 09/07/19 14:01 Last Admin: 09/07/19 13:37 Dose: 60 mcg Documented by: Magnesium Sulfate (Epsom Salt) 0 gm TOP DAILY [facility] Last Admin: 02/21/20 09:16 Dose: Not Given Documented by: Neomycin/Polymyxin/Bacitracin (Triple Antibiotic Oint) 1 each TOP DAILY [facility] Last Admin: 02/22/20 08:21 Dose: 1 each Documented by: Vancomycin 125mg (Capsules) 1 each PO QID [facility] Stop: 06/29/19 16:01 Last Admin: 06/29/19 17:37 Dose: 1 each Documented by: Fidaxomicin (Dificid () 200mg Tablet) 1 each PO BID [facility] Stop: 07/09/19 08:01 Last Admin: 07/09/19 07:24 Dose: 1 each Documented by: Benzonatate 200mg (Cap Own Med ) 200 each PO Q12HR [facility] Stop: 08/06/19 20:01 Last Admin: 08/06/19 19:45 Dose: Not Given Documented by: Nystatin And Triamcinolone Crm ( Mycolog) Own Med 1 each TOP Q12HR [facility] Stop: 08/02/19 20:01 Last Admin: 08/02/19 19:16 Dose: 1 each Documented by: Nystatin (Nystatin Crm) 1 gm TOP BID [facility] Last Admin: 08/04/19 07:52 Dose: 1 applic Documented by: Nystatin (Nystatin Crm) 1 gm TOP Q12HR [facility] Last Admin: 08/09/19 07:36 Dose: 1 applic Documented by: Polyethylene Glycol (Miralax) 238 gm PO ONETIME ONE Stop: 09/22/19 12:01 Last Admin: 09/22/19 11:36 Dose: 238 gram Documented by: Potassium Chloride (Potassium Chloride Solution) 40 meq PO TID@08,14,20 [facility] Last Admin: 08/03/19 14:18 Dose: 40 meq Documented by: Potassium Chloride (Klor-Con M20) 40 meq PO TID [facility] Last Admin: 12/21/19 11:06 Dose: 40 meq Documented by:
[~2020-05-24 10:26] MED LIST changes: +Bisacodyl 5 MG Tab PO ONE; +FLU Vacc QS2019-20(6MOS+)/PF 60 MCG/0.5 ML SYRINGE IM ONE; +Furosemide 40 MG/4 ML VIAL IM ONE; -Lactated Ringers 1,000 ML IV SCH; +Polyethylene Glycol 3350 Powder 238 GM Bot PO ONE; -Propofol 200 MG/20 ML SDV ONE; -Sodium Chloride 0.9% 10 ML Syringe FLUSH PRN; +Zinc Oxide 20% Oint 56.7 GM Tube TOP SCH; +metroNIDAZOLE 500 MG Tab PO SCH
== END | disposition swing bed (61) | DRG 92 ==
LOC: LL.SWG 05-24 11:52
PROVIDERS: ADMIT Family Medicine; ATTEND Family Medicine
DX: G71.11 Myotonic muscular dystrophy (principal); I45.2 Bifascicular block; E87.1 Hypo-osmolality and hyponatremia; A04.72 Enterocolitis due to Clostridium difficile, not specified as recurrent; N39.0 Urinary tract infection, site not specified; I50.9 Heart failure, unspecified; I45.10 Unspecified right bundle-branch block; Z20.828 Contact with and (suspected) exposure to other viral communicable diseases; E78.5 Hyperlipidemia, unspecified; E87.6 Hypokalemia; E83.39 Other disorders of phosphorus metabolism; K21.9 Gastro-esophageal reflux disease without esophagitis; J43.1 Panlobular emphysema; E03.9 Hypothyroidism, unspecified; F41.8 Other specified anxiety disorders; R73.9 Hyperglycemia, unspecified; I95.1 Orthostatic hypotension; G24.01 Drug induced subacute dyskinesia; E88.09 Other disorders of plasma-protein metabolism, not elsewhere classified; D75.89 Other specified diseases of blood and blood-forming organs; K59.09 Other constipation; E66.9 Obesity, unspecified; D12.6 Benign neoplasm of colon, unspecified; M19.90 Unspecified osteoarthritis, unspecified site; E61.1 Iron deficiency; Z88.0 Allergy status to penicillin; Z88.5 Allergy status to narcotic agent; Z91.09 Other allergy status, other than to drugs and biological substances; Z79.899 Other long term (current) drug therapy; Z79.890 Hormone replacement therapy; Z68.29 Body mass index [BMI] 29.0-29.9, adult
CPT/HCPCS: 36415; 71046; 71250; 74022; 77063; 77067; 80048; 80053; 80061; 82550; 82553; 82607; 82728; 82746; 82784; 83036; 83516; 83540; 83550; 83735; 83880; 84100; 84443; 84484; 84550; 85025; 87045; 87046; 87493; 87899; 90471; 90686; 93005; 93306; 94640; 94760; 94761; 97110-GP; 97530-GP; A9270-GY; G0008; J1940; J7620-GY

== ENCOUNTER 2021-05-23 08:36 | Inpatient (IN) | payer MEDICAID ==
[2021-05-23] MEDS ORDERED: Aluminum Hydroxide/Magnesium Hydroxide/Simethicone Susp 30 ML Cup PO PRN (10:26)
[2021-05-23] MEDS ORDERED: Atropine/Diphenoxylate 0.025-2.5 MG Tab PO PRN (10:26)
[2021-05-23] MEDS ORDERED: METHYL SALICYLATE TP PRN (10:26)
[2021-05-23] MEDS ORDERED: Albuterol/Ipratropium 3.0-0.5 MG/3 ML Neb Soln NEB PRN (10:26)
[2021-05-23] MEDS ORDERED: Acetaminophen 325 MG Tab PO PRN (10:26)
[2021-05-23] MEDS ORDERED: DOBUTamine/Dextrose 5%-Water 250 MG/250 ML BAG IV SCH (14:20)
[2021-05-23] MEDS ORDERED: Polyvinyl Alcohol 1.4% Ophth Soln 15 ML Bottle EYEBOTH PRN (14:20)
[2021-05-23] MEDS ORDERED: Ibuprofen 600 MG Tab PO PRN (14:20)
[2021-05-23] MEDS: Albuterol/Ipratropium 3.0-0.5 MG/3 ML Neb Soln NEB SCH ×2 (16:28→19:16)
[2021-05-23] MEDS: Albuterol/Ipratropium 3.0-0.5 MG/3 ML Neb Soln NEB PRN (16:28)
[2021-05-23] MEDS: Potassium Chloride 20 MEQ Tab.ER PO SCH ×2 (16:29→19:15)
[2021-05-23] MEDS: Docusate Sodium 100 MG Cap PO SCH (17:13)
[2021-05-23] MEDS: Niacin 500 MG Tab PO SCH (17:13)
[2021-05-23] MEDS: Acetaminophen 325 MG Tab PO SCH (17:14)
[2021-05-23] MEDS ORDERED: Niacin 500 MG Tab PO SCH (18:00)
[2021-05-23] MEDS: LEVOTHYROXINE 137 MCG PO SCH (19:15)
[2021-05-23] MEDS: BUPROPION 300 MG PO SCH (19:15)
[2021-05-23] MEDS: Fludrocortisone 0.1 MG Tab PO SCH (19:15)
[2021-05-23] MEDS: Simvastatin 10 MG Tab PO SCH (19:16)
[2021-05-23] MEDS: Menthol 10%/Methyl Salicylate 30% 85 GM Tube TOP PRN (19:20)
[2021-05-23] MEDS ORDERED: LEVOTHYROXINE SODIUM 137 MCG PO SCH (20:00)
[2021-05-23] MEDS ORDERED: Non-Formulary Medication 1 Each (Bupropion 100 MG Tablet) PO SCH (20:00)
[2021-05-23] MEDS ORDERED: Albuterol/Ipratropium 3.0-0.5 MG/3 ML Neb Soln NEB SCH (20:00)
[2021-05-23] MEDS ORDERED: Fludrocortisone 0.1 MG Tab PO SCH (20:00)
[2021-05-24] MEDS: Calcium Carbonate 750 MG Tab.Chew PO SCH (07:30)
[2021-05-24] MEDS: Docusate Sodium 100 MG Cap PO SCH ×2 (07:30→17:20)
[2021-05-24] MEDS: Acetaminophen 325 MG Tab PO SCH ×3 (07:31→17:20)
[2021-05-24] MEDS: Ibuprofen 600 MG Tab PO PRN (07:32)
[2021-05-24] MEDS: Citalopram 20 MG Tab PO SCH (07:32)
[2021-05-24] MEDS: Fludrocortisone 0.1 MG Tab PO SCH ×2 (07:33→19:58)
[2021-05-24] MEDS: Potassium Chloride 20 MEQ Tab.ER PO SCH ×4 (07:33→19:58)
[2021-05-24] MEDS: Ferrous Sulfate 325 MG Tab PO SCH (07:33)
[2021-05-24] MEDS: Albuterol/Ipratropium 3.0-0.5 MG/3 ML Neb Soln NEB SCH ×4 (07:33→19:55)
[2021-05-24] MEDS: Furosemide 20 MG Tab PO SCH ×2 (07:34→11:18)
[2021-05-24] MEDS: Niacin 500 MG Tab PO SCH ×2 (07:34→17:20)
[2021-05-24] MEDS: Cyanocobalamin (Vitamin B12) 1,000 MCG Tab PO SCH (07:34)
[2021-05-24] MEDS: Cholecalciferol (Vitamin D3) 25 MCG Tab PO SCH (07:35)
[2021-05-24] MEDS ORDERED: Citalopram 20 MG Tab PO SCH (08:00)
[2021-05-24] MEDS ORDERED: Fludrocortisone 0.1 MG Tab PO SCH (08:00)
[2021-05-24] MEDS ORDERED: Non-Formulary Medication 1 Each (Cholecalciferol (Vitamin D3) [Vitamin D3] 1,000 UNIT Caps PO SCH (08:00)
[2021-05-24] MEDS ORDERED: Cyanocobalamin (Vitamin B12) 1,000 MCG Tab PO SCH (08:00)
[2021-05-24] MEDS ORDERED: Furosemide 20 MG Tab PO SCH (08:00)
[2021-05-24] MEDS: LEVOTHYROXINE 137 MCG PO SCH (19:58)
[2021-05-24] MEDS: BUPROPION 300 MG PO SCH (19:59)
[2021-05-24] MEDS: Simvastatin 10 MG Tab PO SCH (19:59)
[2021-05-24] MEDS: Menthol 10%/Methyl Salicylate 30% 85 GM Tube TOP PRN (20:00)
[2021-05-25] MEDS: Citalopram 20 MG Tab PO SCH (07:53)
[2021-05-25] MEDS: Albuterol/Ipratropium 3.0-0.5 MG/3 ML Neb Soln NEB SCH ×4 (07:54→19:33)
[2021-05-25] MEDS: Fludrocortisone 0.1 MG Tab PO SCH ×2 (07:54→19:33)
[2021-05-25] MEDS: Furosemide 20 MG Tab PO SCH ×2 (07:54→12:16)
[2021-05-25] MEDS: Potassium Chloride 20 MEQ Tab.ER PO SCH ×4 (07:54→19:34)
[2021-05-25] MEDS: Calcium Carbonate 750 MG Tab.Chew PO SCH (07:55)
[2021-05-25] MEDS: Ferrous Sulfate 325 MG Tab PO SCH (07:55)
[2021-05-25] MEDS: Niacin 500 MG Tab PO SCH ×2 (07:55→17:26)
[2021-05-25] MEDS: Cholecalciferol (Vitamin D3) 25 MCG Tab PO SCH (07:55)
[2021-05-25] MEDS: Docusate Sodium 100 MG Cap PO SCH ×2 (07:55→17:26)
[2021-05-25] MEDS: Cyanocobalamin (Vitamin B12) 1,000 MCG Tab PO SCH (07:56)
[2021-05-25] MEDS: Acetaminophen 325 MG Tab PO SCH ×3 (07:56→17:25)
[2021-05-25] MEDS: LEVOTHYROXINE 137 MCG PO SCH (19:34)
[2021-05-25] MEDS: Simvastatin 10 MG Tab PO SCH (19:34)
[2021-05-25] MEDS: BUPROPION 300 MG PO SCH (19:34)
[2021-05-25] MEDS: Ibuprofen 600 MG Tab PO PRN (19:35)
[2021-05-25] MEDS: Menthol 10%/Methyl Salicylate 30% 85 GM Tube TOP PRN (19:35)
[2021-05-26] MEDS: Albuterol/Ipratropium 3.0-0.5 MG/3 ML Neb Soln NEB SCH ×4 (07:34→19:35)
[2021-05-26] MEDS: Fludrocortisone 0.1 MG Tab PO SCH ×2 (07:34→19:35)
[2021-05-26] MEDS: Potassium Chloride 20 MEQ Tab.ER PO SCH ×4 (07:34→19:36)
[2021-05-26] MEDS: Citalopram 20 MG Tab PO SCH (07:34)
[2021-05-26] MEDS: Furosemide 20 MG Tab PO SCH ×2 (07:35→11:34)
[2021-05-26] MEDS: Calcium Carbonate 750 MG Tab.Chew PO SCH (07:35)
[2021-05-26] MEDS: Ferrous Sulfate 325 MG Tab PO SCH (07:35)
[2021-05-26] MEDS: Niacin 500 MG Tab PO SCH ×2 (07:35→17:41)
[2021-05-26] MEDS: Docusate Sodium 100 MG Cap PO SCH ×2 (07:35→17:42)
[2021-05-26] MEDS: Cyanocobalamin (Vitamin B12) 1,000 MCG Tab PO SCH (07:36)
[2021-05-26] MEDS: Acetaminophen 325 MG Tab PO SCH ×3 (07:36→17:41)
[2021-05-26] MEDS: Cholecalciferol (Vitamin D3) 25 MCG Tab PO SCH (07:36)
[2021-05-26] MEDS: BUPROPION 300 MG PO SCH (19:36)
[2021-05-26] MEDS: LEVOTHYROXINE 137 MCG PO SCH (19:36)
[2021-05-26] MEDS: Simvastatin 10 MG Tab PO SCH (19:36)
[2021-05-26] MEDS: Menthol 10%/Methyl Salicylate 30% 85 GM Tube TOP PRN (19:36)
[2021-05-27] MEDS: Citalopram 20 MG Tab PO SCH (07:52)
[2021-05-27] MEDS: Docusate Sodium 100 MG Cap PO SCH ×2 (07:52→17:03)
[2021-05-27] MEDS: Albuterol/Ipratropium 3.0-0.5 MG/3 ML Neb Soln NEB SCH ×4 (07:53→19:36)
[2021-05-27] MEDS: Fludrocortisone 0.1 MG Tab PO SCH ×2 (07:55→19:47)
[2021-05-27] MEDS: Ferrous Sulfate 325 MG Tab PO SCH (07:55)
[2021-05-27] MEDS: Furosemide 20 MG Tab PO SCH ×2 (07:56→11:47)
[2021-05-27] MEDS: Potassium Chloride 20 MEQ Tab.ER PO SCH ×4 (07:56→19:47)
[2021-05-27] MEDS: Calcium Carbonate 750 MG Tab.Chew PO SCH (07:57)
[2021-05-27] MEDS: Niacin 500 MG Tab PO SCH ×2 (07:57→17:03)
[2021-05-27] MEDS: Acetaminophen 325 MG Tab PO SCH ×3 (07:58→17:04)
[2021-05-27] MEDS: Cholecalciferol (Vitamin D3) 25 MCG Tab PO SCH (07:59)
[2021-05-27] MEDS: Cyanocobalamin (Vitamin B12) 1,000 MCG Tab PO SCH (07:59)
[2021-05-27] MEDS: BUPROPION 300 MG PO SCH (19:47)
[2021-05-27] MEDS: LEVOTHYROXINE 137 MCG PO SCH (19:47)
[2021-05-27] MEDS: Simvastatin 10 MG Tab PO SCH (19:47)
[2021-05-27] MEDS: Ibuprofen 600 MG Tab PO PRN (19:48)
[2021-05-27] MEDS: Menthol 10%/Methyl Salicylate 30% 85 GM Tube TOP PRN (19:48)
[2021-05-28] MEDS: Albuterol/Ipratropium 3.0-0.5 MG/3 ML Neb Soln NEB SCH ×4 (07:52→19:16)
[2021-05-28] MEDS: Citalopram 20 MG Tab PO SCH (08:11)
[2021-05-28] MEDS: Fludrocortisone 0.1 MG Tab PO SCH ×2 (08:11→19:17)
[2021-05-28] MEDS: Potassium Chloride 20 MEQ Tab.ER PO SCH ×4 (08:12→19:17)
[2021-05-28] MEDS: Docusate Sodium 100 MG Cap PO SCH ×2 (08:12→17:34)
[2021-05-28] MEDS: Furosemide 20 MG Tab PO SCH ×2 (08:12→11:57)
[2021-05-28] MEDS: Ferrous Sulfate 325 MG Tab PO SCH (08:13)
[2021-05-28] MEDS: Niacin 500 MG Tab PO SCH ×2 (08:13→17:34)
[2021-05-28] MEDS: Calcium Carbonate 750 MG Tab.Chew PO SCH (08:14)
[2021-05-28] MEDS: Acetaminophen 325 MG Tab PO SCH ×3 (08:14→17:35)
[2021-05-28] MEDS: Cyanocobalamin (Vitamin B12) 1,000 MCG Tab PO SCH (08:15)
[2021-05-28] MEDS: Cholecalciferol (Vitamin D3) 25 MCG Tab PO SCH (08:15)
[2021-05-28] MEDS: BUPROPION 300 MG PO SCH (19:17)
[2021-05-28] MEDS: LEVOTHYROXINE 137 MCG PO SCH (19:17)
[2021-05-28] MEDS: Simvastatin 10 MG Tab PO SCH (19:18)
[2021-05-28] MEDS: Menthol 10%/Methyl Salicylate 30% 85 GM Tube TOP PRN (19:19)
[2021-05-28] MEDS: Ibuprofen 600 MG Tab PO PRN (19:19)
[2021-05-29] MEDS: Acetaminophen 325 MG Tab PO PRN (03:46)
[2021-05-29] MEDS: Furosemide 20 MG Tab PO SCH ×2 (08:14→11:57)
[2021-05-29] MEDS: Potassium Chloride 20 MEQ Tab.ER PO SCH ×4 (08:16→19:27)
[2021-05-29] MEDS: Albuterol/Ipratropium 3.0-0.5 MG/3 ML Neb Soln NEB SCH ×4 (08:17→19:26)
[2021-05-29] MEDS: Fludrocortisone 0.1 MG Tab PO SCH ×2 (08:17→19:26)
[2021-05-29] MEDS: Citalopram 20 MG Tab PO SCH (08:17)
[2021-05-29] MEDS: Niacin 500 MG Tab PO SCH ×2 (08:18→17:47)
[2021-05-29] MEDS: Docusate Sodium 100 MG Cap PO SCH ×2 (08:18→17:47)
[2021-05-29] MEDS: Ferrous Sulfate 325 MG Tab PO SCH (08:18)
[2021-05-29] MEDS: Acetaminophen 325 MG Tab PO SCH ×3 (08:19→17:47)
[2021-05-29] MEDS: Calcium Carbonate 750 MG Tab.Chew PO SCH (08:19)
[2021-05-29] MEDS: Cyanocobalamin (Vitamin B12) 1,000 MCG Tab PO SCH (08:20)
[2021-05-29] MEDS: Cholecalciferol (Vitamin D3) 25 MCG Tab PO SCH (08:21)
[2021-05-29] MEDS: LEVOTHYROXINE 137 MCG PO SCH (19:27)
[2021-05-29] MEDS: BUPROPION 300 MG PO SCH (19:27)
[2021-05-29] MEDS: Simvastatin 10 MG Tab PO SCH (19:27)
[2021-05-29] MEDS: Ibuprofen 600 MG Tab PO PRN (19:28)
[2021-05-29] MEDS: Menthol 10%/Methyl Salicylate 30% 85 GM Tube TOP PRN (19:29)
[2021-05-30] MEDS: Potassium Chloride 20 MEQ Tab.ER PO SCH ×4 (07:48→19:50)
[2021-05-30] MEDS: Citalopram 20 MG Tab PO SCH (07:48)
[2021-05-30] MEDS: Fludrocortisone 0.1 MG Tab PO SCH ×2 (07:48→19:50)
[2021-05-30] MEDS: Furosemide 20 MG Tab PO SCH ×2 (07:49→11:35)
[2021-05-30] MEDS: Niacin 500 MG Tab PO SCH ×2 (07:50→17:24)
[2021-05-30] MEDS: Calcium Carbonate 750 MG Tab.Chew PO SCH (07:51)
[2021-05-30] MEDS: Acetaminophen 325 MG Tab PO SCH ×3 (07:53→17:24)
[2021-05-30] MEDS: Cholecalciferol (Vitamin D3) 25 MCG Tab PO SCH (07:54)
[2021-05-30] MEDS: Cyanocobalamin (Vitamin B12) 1,000 MCG Tab PO SCH (07:54)
[2021-05-30] MEDS: Albuterol/Ipratropium 3.0-0.5 MG/3 ML Neb Soln NEB SCH ×2 (07:55→17:24)
[2021-05-30] MEDS: Docusate Sodium 100 MG Cap PO SCH ×2 (07:55→17:23)
[2021-05-30] MEDS: Ferrous Sulfate 325 MG Tab PO SCH (07:56)
[2021-05-30] MEDS: LEVOTHYROXINE 137 MCG PO SCH (19:50)
[2021-05-30] MEDS: BUPROPION 300 MG PO SCH (19:50)
[2021-05-30] MEDS: Simvastatin 10 MG Tab PO SCH (19:51)
[2021-05-30] MEDS: Menthol 10%/Methyl Salicylate 30% 85 GM Tube TOP PRN (19:51)
[2021-05-31] MEDS: Ibuprofen 600 MG Tab PO PRN (00:28)
[2021-05-31] MEDS: Furosemide 20 MG Tab PO SCH ×2 (07:52→11:59)
[2021-05-31] MEDS: Citalopram 20 MG Tab PO SCH (07:52)
[2021-05-31] MEDS: Fludrocortisone 0.1 MG Tab PO SCH ×2 (07:52→19:49)
[2021-05-31] MEDS: Ferrous Sulfate 325 MG Tab PO SCH (07:53)
[2021-05-31] MEDS: Potassium Chloride 20 MEQ Tab.ER PO SCH ×4 (07:53→19:50)
[2021-05-31] MEDS: Calcium Carbonate 750 MG Tab.Chew PO SCH (07:53)
[2021-05-31] MEDS: Docusate Sodium 100 MG Cap PO SCH ×2 (07:53→17:40)
[2021-05-31] MEDS: Acetaminophen 325 MG Tab PO SCH ×3 (07:54→17:39)
[2021-05-31] MEDS: Niacin 500 MG Tab PO SCH ×2 (07:54→17:39)
[2021-05-31] MEDS: Cholecalciferol (Vitamin D3) 25 MCG Tab PO SCH (07:54)
[2021-05-31] MEDS: Cyanocobalamin (Vitamin B12) 1,000 MCG Tab PO SCH (07:54)
[2021-05-31] MEDS: Albuterol/Ipratropium 3.0-0.5 MG/3 ML Neb Soln NEB SCH ×2 (07:55→19:52)
[2021-05-31] MEDS: LEVOTHYROXINE 137 MCG PO SCH (19:50)
[2021-05-31] MEDS: Simvastatin 10 MG Tab PO SCH (19:51)
[2021-05-31] MEDS: BUPROPION 300 MG PO SCH (19:51)
[2021-06-01] MEDS: Acetaminophen 325 MG Tab PO PRN (04:32)
[2021-06-01] MEDS: Fludrocortisone 0.1 MG Tab PO SCH ×2 (08:15→19:59)
[2021-06-01] MEDS: Potassium Chloride 20 MEQ Tab.ER PO SCH ×4 (08:16→19:59)
[2021-06-01] MEDS: Ferrous Sulfate 325 MG Tab PO SCH (08:16)
[2021-06-01] MEDS: Furosemide 20 MG Tab PO SCH ×2 (08:16→12:11)
[2021-06-01] MEDS: Docusate Sodium 100 MG Cap PO SCH ×2 (08:17→17:05)
[2021-06-01] MEDS: Calcium Carbonate 750 MG Tab.Chew PO SCH (08:17)
[2021-06-01] MEDS: Niacin 500 MG Tab PO SCH ×2 (08:17→17:06)
[2021-06-01] MEDS: Citalopram 20 MG Tab PO SCH (08:17)
[2021-06-01] MEDS: Acetaminophen 325 MG Tab PO SCH ×3 (08:18→17:06)
[2021-06-01] MEDS: Cyanocobalamin (Vitamin B12) 1,000 MCG Tab PO SCH (08:18)
[2021-06-01] MEDS: Cholecalciferol (Vitamin D3) 25 MCG Tab PO SCH (08:18)
[2021-06-01] MEDS: Albuterol/Ipratropium 3.0-0.5 MG/3 ML Neb Soln NEB SCH ×2 (08:19→19:57)
[2021-06-01] MEDS: BUPROPION 300 MG PO SCH (20:00)
[2021-06-01] MEDS: LEVOTHYROXINE 137 MCG PO SCH (20:00)
[2021-06-01] MEDS: Simvastatin 10 MG Tab PO SCH (20:00)
[2021-06-01] MEDS: Menthol 10%/Methyl Salicylate 30% 85 GM Tube TOP PRN (20:01)
[2021-06-02] MEDS: Potassium Chloride 20 MEQ Tab.ER PO SCH ×4 (07:25→19:52)
[2021-06-02] MEDS: Fludrocortisone 0.1 MG Tab PO SCH ×2 (07:25→19:52)
[2021-06-02] MEDS: Furosemide 20 MG Tab PO SCH ×2 (07:25→12:15)
[2021-06-02] MEDS: Citalopram 20 MG Tab PO SCH (07:25)
[2021-06-02] MEDS: Docusate Sodium 100 MG Cap PO SCH ×2 (07:26→17:52)
[2021-06-02] MEDS: Ferrous Sulfate 325 MG Tab PO SCH (07:26)
[2021-06-02] MEDS: Albuterol/Ipratropium 3.0-0.5 MG/3 ML Neb Soln NEB SCH ×2 (07:26→19:50)
[2021-06-02] MEDS: Niacin 500 MG Tab PO SCH ×2 (07:26→17:52)
[2021-06-02] MEDS: Calcium Carbonate 750 MG Tab.Chew PO SCH (07:27)
[2021-06-02] MEDS: Acetaminophen 325 MG Tab PO SCH ×3 (07:27→17:52)
[2021-06-02] MEDS: Cyanocobalamin (Vitamin B12) 1,000 MCG Tab PO SCH (07:28)
[2021-06-02] MEDS: Cholecalciferol (Vitamin D3) 25 MCG Tab PO SCH (07:28)
[2021-06-02] MEDS: Magnesium Hydroxide 400 MG/5 ML Susp 30 ML Cup PO PRN (09:12)
[2021-06-02] MEDS: Simvastatin 10 MG Tab PO SCH (19:53)
[2021-06-02] MEDS: BUPROPION 300 MG PO SCH (19:53)
[2021-06-02] MEDS: LEVOTHYROXINE 137 MCG PO SCH (19:53)
[2021-06-02] MEDS: Menthol 10%/Methyl Salicylate 30% 85 GM Tube TOP PRN (19:54)
[2021-06-03] MEDS: Fludrocortisone 0.1 MG Tab PO SCH ×2 (08:08→20:02)
[2021-06-03] MEDS: Potassium Chloride 20 MEQ Tab.ER PO SCH ×4 (08:08→20:02)
[2021-06-03] MEDS: Citalopram 20 MG Tab PO SCH (08:08)
[2021-06-03] MEDS: Furosemide 20 MG Tab PO SCH ×2 (08:08→12:08)
[2021-06-03] MEDS: Albuterol/Ipratropium 3.0-0.5 MG/3 ML Neb Soln NEB SCH ×2 (08:10→20:00)
[2021-06-03] MEDS: Docusate Sodium 100 MG Cap PO SCH ×2 (08:10→17:51)
[2021-06-03] MEDS: Niacin 500 MG Tab PO SCH ×2 (08:11→17:51)
[2021-06-03] MEDS: Ferrous Sulfate 325 MG Tab PO SCH (08:11)
[2021-06-03] MEDS: Calcium Carbonate 750 MG Tab.Chew PO SCH (08:11)
[2021-06-03] MEDS: Acetaminophen 325 MG Tab PO SCH ×3 (08:12→17:52)
[2021-06-03] MEDS: Cyanocobalamin (Vitamin B12) 1,000 MCG Tab PO SCH (08:14)
[2021-06-03] MEDS: Cholecalciferol (Vitamin D3) 25 MCG Tab PO SCH (08:15)
[2021-06-03] MEDS: Ibuprofen 600 MG Tab PO PRN (12:09)
[2021-06-03] MEDS: Simvastatin 10 MG Tab PO SCH (20:03)
[2021-06-03] MEDS: LEVOTHYROXINE 137 MCG PO SCH (20:03)
[2021-06-03] MEDS: BUPROPION 300 MG PO SCH (20:03)
[2021-06-03] MEDS: Menthol 10%/Methyl Salicylate 30% 85 GM Tube TOP PRN (20:04)
[2021-06-04] MEDS: Albuterol/Ipratropium 3.0-0.5 MG/3 ML Neb Soln NEB SCH ×2 (07:39→20:10)
[2021-06-04] MEDS: Furosemide 20 MG Tab PO SCH ×2 (07:40→11:50)
[2021-06-04] MEDS: Fludrocortisone 0.1 MG Tab PO SCH ×2 (07:40→20:12)
[2021-06-04] MEDS: Potassium Chloride 20 MEQ Tab.ER PO SCH ×4 (07:40→20:12)
[2021-06-04] MEDS: Citalopram 20 MG Tab PO SCH (07:40)
[2021-06-04] MEDS: Acetaminophen 325 MG Tab PO SCH ×3 (07:41→17:47)
[2021-06-04] MEDS: Calcium Carbonate 750 MG Tab.Chew PO SCH (07:41)
[2021-06-04] MEDS: Cholecalciferol (Vitamin D3) 25 MCG Tab PO SCH (07:42)
[2021-06-04] MEDS: Ferrous Sulfate 325 MG Tab PO SCH (07:42)
[2021-06-04] MEDS: Niacin 500 MG Tab PO SCH ×2 (07:42→17:46)
[2021-06-04] MEDS: Docusate Sodium 100 MG Cap PO SCH ×2 (07:42→17:47)
[2021-06-04] MEDS: Cyanocobalamin (Vitamin B12) 1,000 MCG Tab PO SCH (07:43)
[2021-06-04] MEDS: BUPROPION 300 MG PO SCH (20:13)
[2021-06-04] MEDS: LEVOTHYROXINE 137 MCG PO SCH (20:13)
[2021-06-04] MEDS: Simvastatin 10 MG Tab PO SCH (20:13)
[2021-06-04] MEDS: Menthol 10%/Methyl Salicylate 30% 85 GM Tube TOP PRN (20:14)
[2021-06-05] MEDS: Albuterol/Ipratropium 3.0-0.5 MG/3 ML Neb Soln NEB SCH ×2 (07:40→19:29)
[2021-06-05] MEDS: Potassium Chloride 20 MEQ Tab.ER PO SCH ×4 (07:40→19:29)
[2021-06-05] MEDS: Citalopram 20 MG Tab PO SCH (07:40)
[2021-06-05] MEDS: Fludrocortisone 0.1 MG Tab PO SCH ×2 (07:40→19:29)
[2021-06-05] MEDS: Furosemide 20 MG Tab PO SCH ×2 (07:40→11:52)
[2021-06-05] MEDS: Niacin 500 MG Tab PO SCH ×2 (07:41→17:54)
[2021-06-05] MEDS: Calcium Carbonate 750 MG Tab.Chew PO SCH (07:41)
[2021-06-05] MEDS: Acetaminophen 325 MG Tab PO SCH ×3 (07:41→17:54)
[2021-06-05] MEDS: Docusate Sodium 100 MG Cap PO SCH ×2 (07:42→17:54)
[2021-06-05] MEDS: Cholecalciferol (Vitamin D3) 25 MCG Tab PO SCH (07:42)
[2021-06-05] MEDS: Cyanocobalamin (Vitamin B12) 1,000 MCG Tab PO SCH (07:42)
[2021-06-05] MEDS: Ferrous Sulfate 325 MG Tab PO SCH (07:42)
[2021-06-05] MEDS: Simvastatin 10 MG Tab PO SCH (19:30)
[2021-06-05] MEDS: BUPROPION 300 MG PO SCH (19:30)
[2021-06-05] MEDS: LEVOTHYROXINE 137 MCG PO SCH (19:30)
[2021-06-05] MEDS: Ibuprofen 600 MG Tab PO PRN (19:31)
[2021-06-05] MEDS: Menthol 10%/Methyl Salicylate 30% 85 GM Tube TOP PRN (19:31)
[2021-06-06] MEDS: Acetaminophen 325 MG Tab PO SCH ×3 (07:21→17:56)
[2021-06-06] MEDS: Niacin 500 MG Tab PO SCH ×2 (07:21→17:56)
[2021-06-06] MEDS: Ferrous Sulfate 325 MG Tab PO SCH (07:21)
[2021-06-06] MEDS: Calcium Carbonate 750 MG Tab.Chew PO SCH (07:21)
[2021-06-06] MEDS: Docusate Sodium 100 MG Cap PO SCH ×2 (07:21→17:56)
[2021-06-06] MEDS: Albuterol/Ipratropium 3.0-0.5 MG/3 ML Neb Soln NEB SCH ×2 (07:22→19:35)
[2021-06-06] MEDS: Cholecalciferol (Vitamin D3) 25 MCG Tab PO SCH (07:22)
[2021-06-06] MEDS: Cyanocobalamin (Vitamin B12) 1,000 MCG Tab PO SCH (07:22)
[2021-06-06] MEDS: Citalopram 20 MG Tab PO SCH (07:23)
[2021-06-06] MEDS: Furosemide 20 MG Tab PO SCH ×2 (07:23→11:47)
[2021-06-06] MEDS: Fludrocortisone 0.1 MG Tab PO SCH ×2 (07:23→19:35)
[2021-06-06] MEDS: Potassium Chloride 20 MEQ Tab.ER PO SCH ×4 (07:23→19:35)
[2021-06-06] MEDS: LEVOTHYROXINE 137 MCG PO SCH (19:35)
[2021-06-06] MEDS: BUPROPION 300 MG PO SCH (19:36)
[2021-06-06] MEDS: Simvastatin 10 MG Tab PO SCH (19:36)
[2021-06-06] MEDS: Menthol 10%/Methyl Salicylate 30% 85 GM Tube TOP PRN (19:36)
[2021-06-07] MEDS: Citalopram 20 MG Tab PO SCH (07:47)
[2021-06-07] MEDS: Potassium Chloride 20 MEQ Tab.ER PO SCH ×4 (07:48→19:33)
[2021-06-07] MEDS: Fludrocortisone 0.1 MG Tab PO SCH ×2 (07:48→19:33)
[2021-06-07] MEDS: Furosemide 20 MG Tab PO SCH ×2 (07:48→12:08)
[2021-06-07] MEDS: Docusate Sodium 100 MG Cap PO SCH ×2 (07:49→17:40)
[2021-06-07] MEDS: Ferrous Sulfate 325 MG Tab PO SCH (07:49)
[2021-06-07] MEDS: Niacin 500 MG Tab PO SCH ×2 (07:50→17:40)
[2021-06-07] MEDS: Calcium Carbonate 750 MG Tab.Chew PO SCH (07:50)
[2021-06-07] MEDS: Albuterol/Ipratropium 3.0-0.5 MG/3 ML Neb Soln NEB SCH ×2 (07:50→19:33)
[2021-06-07] MEDS: Cholecalciferol (Vitamin D3) 25 MCG Tab PO SCH (07:51)
[2021-06-07] MEDS: Cyanocobalamin (Vitamin B12) 1,000 MCG Tab PO SCH (07:51)
[2021-06-07] MEDS: Acetaminophen 325 MG Tab PO SCH ×3 (07:51→17:40)
[2021-06-07] MEDS: BUPROPION 300 MG PO SCH (19:34)
[2021-06-07] MEDS: Simvastatin 10 MG Tab PO SCH (19:34)
[2021-06-07] MEDS: LEVOTHYROXINE 137 MCG PO SCH (19:34)
[2021-06-07] MEDS: Menthol 10%/Methyl Salicylate 30% 85 GM Tube TOP PRN (19:35)
[2021-06-08] MEDS: Docusate Sodium 100 MG Cap PO SCH ×2 (10:44→17:08)
[2021-06-08] MEDS: Potassium Chloride 20 MEQ Tab.ER PO SCH ×4 (10:44→19:14)
[2021-06-08] MEDS: Fludrocortisone 0.1 MG Tab PO SCH ×2 (10:44→19:14)
[2021-06-08] MEDS: Citalopram 20 MG Tab PO SCH (10:44)
[2021-06-08] MEDS: Albuterol/Ipratropium 3.0-0.5 MG/3 ML Neb Soln NEB SCH ×2 (10:44→19:13)
[2021-06-08] MEDS: Ferrous Sulfate 325 MG Tab PO SCH (10:44)
[2021-06-08] MEDS: Cholecalciferol (Vitamin D3) 25 MCG Tab PO SCH (10:45)
[2021-06-08] MEDS: Calcium Carbonate 750 MG Tab.Chew PO SCH (10:45)
[2021-06-08] MEDS: Niacin 500 MG Tab PO SCH ×2 (10:45→17:08)
[2021-06-08] MEDS: Cyanocobalamin (Vitamin B12) 1,000 MCG Tab PO SCH (10:45)
[2021-06-08] MEDS: Acetaminophen 325 MG Tab PO SCH ×3 (10:45→17:08)
[2021-06-08] MEDS: Furosemide 20 MG Tab PO SCH ×2 (10:45→11:15)
[2021-06-08] MEDS: BUPROPION 300 MG PO SCH (19:14)
[2021-06-08] MEDS: LEVOTHYROXINE 137 MCG PO SCH (19:14)
[2021-06-08] MEDS: Simvastatin 10 MG Tab PO SCH (19:15)
[2021-06-09] MEDS: Ibuprofen 600 MG Tab PO PRN (07:27)
[2021-06-09] MEDS: Acetaminophen 325 MG Tab PO SCH ×3 (07:28→17:12)
[2021-06-09] MEDS: Citalopram 20 MG Tab PO SCH (07:29)
[2021-06-09] MEDS: Albuterol/Ipratropium 3.0-0.5 MG/3 ML Neb Soln NEB SCH ×2 (07:29→19:18)
[2021-06-09] MEDS: Ferrous Sulfate 325 MG Tab PO SCH (07:29)
[2021-06-09] MEDS: Docusate Sodium 100 MG Cap PO SCH ×2 (07:29→17:11)
[2021-06-09] MEDS: Fludrocortisone 0.1 MG Tab PO SCH ×2 (07:30→19:18)
[2021-06-09] MEDS: Potassium Chloride 20 MEQ Tab.ER PO SCH ×4 (07:30→19:18)
[2021-06-09] MEDS: Furosemide 20 MG Tab PO SCH ×2 (07:30→11:13)
[2021-06-09] MEDS: Calcium Carbonate 750 MG Tab.Chew PO SCH (07:31)
[2021-06-09] MEDS: Niacin 500 MG Tab PO SCH ×2 (07:31→17:12)
[2021-06-09] MEDS: Cyanocobalamin (Vitamin B12) 1,000 MCG Tab PO SCH (07:32)
[2021-06-09] MEDS: Cholecalciferol (Vitamin D3) 25 MCG Tab PO SCH (07:32)
[2021-06-09] MEDS: BUPROPION 300 MG PO SCH (19:18)
[2021-06-09] MEDS: LEVOTHYROXINE 137 MCG PO SCH (19:18)
[2021-06-09] MEDS: Simvastatin 10 MG Tab PO SCH (19:18)
[2021-06-10] MEDS: Ibuprofen 600 MG Tab PO PRN (07:30)
[2021-06-10] MEDS: Acetaminophen 325 MG Tab PO SCH ×3 (07:30→17:04)
[2021-06-10] MEDS: Cholecalciferol (Vitamin D3) 25 MCG Tab PO SCH (07:31)
[2021-06-10] MEDS: Docusate Sodium 100 MG Cap PO SCH ×2 (07:31→17:04)
[2021-06-10] MEDS: Cyanocobalamin (Vitamin B12) 1,000 MCG Tab PO SCH (07:31)
[2021-06-10] MEDS: Calcium Carbonate 750 MG Tab.Chew PO SCH (07:31)
[2021-06-10] MEDS: Ferrous Sulfate 325 MG Tab PO SCH (07:32)
[2021-06-10] MEDS: Fludrocortisone 0.1 MG Tab PO SCH ×2 (07:32→19:12)
[2021-06-10] MEDS: Citalopram 20 MG Tab PO SCH (07:32)
[2021-06-10] MEDS: Albuterol/Ipratropium 3.0-0.5 MG/3 ML Neb Soln NEB SCH ×2 (07:32→19:09)
[2021-06-10] MEDS: Potassium Chloride 20 MEQ Tab.ER PO SCH ×4 (07:32→19:13)
[2021-06-10] MEDS: Furosemide 20 MG Tab PO SCH ×2 (07:33→11:07)
[2021-06-10] MEDS: Niacin 500 MG Tab PO SCH ×2 (07:33→17:04)
[2021-06-10] MEDS: LEVOTHYROXINE 137 MCG PO SCH (19:13)
[2021-06-10] MEDS: BUPROPION 300 MG PO SCH (19:13)
[2021-06-10] MEDS: Simvastatin 10 MG Tab PO SCH (19:13)
[2021-06-11] MEDS: Fludrocortisone 0.1 MG Tab PO SCH ×2 (07:48→19:41)
[2021-06-11] MEDS: Furosemide 20 MG Tab PO SCH ×2 (07:48→12:48)
[2021-06-11] MEDS: Potassium Chloride 20 MEQ Tab.ER PO SCH ×4 (07:48→19:41)
[2021-06-11] MEDS: Citalopram 20 MG Tab PO SCH (07:48)
[2021-06-11] MEDS: Calcium Carbonate 750 MG Tab.Chew PO SCH (07:49)
[2021-06-11] MEDS: Niacin 500 MG Tab PO SCH ×2 (07:49→17:43)
[2021-06-11] MEDS: Albuterol/Ipratropium 3.0-0.5 MG/3 ML Neb Soln NEB SCH ×2 (07:50→19:41)
[2021-06-11] MEDS: Docusate Sodium 100 MG Cap PO SCH ×2 (07:50→17:42)
[2021-06-11] MEDS: Ferrous Sulfate 325 MG Tab PO SCH (07:51)
[2021-06-11] MEDS: Acetaminophen 325 MG Tab PO SCH ×3 (07:51→17:43)
[2021-06-11] MEDS: Cholecalciferol (Vitamin D3) 25 MCG Tab PO SCH (07:53)
[2021-06-11] MEDS: Cyanocobalamin (Vitamin B12) 1,000 MCG Tab PO SCH (07:53)
[2021-06-11] MEDS: Ibuprofen 600 MG Tab PO PRN (08:05)
[2021-06-11] MEDS: Simvastatin 10 MG Tab PO SCH (19:41)
[2021-06-11] MEDS: LEVOTHYROXINE 137 MCG PO SCH (19:41)
[2021-06-11] MEDS: BUPROPION 300 MG PO SCH (19:41)
[2021-06-11] MEDS: Menthol 10%/Methyl Salicylate 30% 85 GM Tube TOP PRN (19:42)
[2021-06-12] MEDS: Ibuprofen 600 MG Tab PO PRN ×2 (04:07→17:25)
[2021-06-12] MEDS: Acetaminophen 325 MG Tab PO SCH ×3 (07:35→17:25)
[2021-06-12] MEDS: Ferrous Sulfate 325 MG Tab PO SCH (07:36)
[2021-06-12] MEDS: Docusate Sodium 100 MG Cap PO SCH ×2 (07:36→17:24)
[2021-06-12] MEDS: Albuterol/Ipratropium 3.0-0.5 MG/3 ML Neb Soln NEB SCH ×2 (07:36→19:21)
[2021-06-12] MEDS: Calcium Carbonate 750 MG Tab.Chew PO SCH (07:36)
[2021-06-12] MEDS: Furosemide 20 MG Tab PO SCH ×2 (07:37→11:36)
[2021-06-12] MEDS: Fludrocortisone 0.1 MG Tab PO SCH ×2 (07:37→19:22)
[2021-06-12] MEDS: Potassium Chloride 20 MEQ Tab.ER PO SCH ×4 (07:37→19:22)
[2021-06-12] MEDS: Citalopram 20 MG Tab PO SCH (07:37)
[2021-06-12] MEDS: Cholecalciferol (Vitamin D3) 25 MCG Tab PO SCH (07:38)
[2021-06-12] MEDS: Niacin 500 MG Tab PO SCH ×2 (07:38→17:24)
[2021-06-12] MEDS: Cyanocobalamin (Vitamin B12) 1,000 MCG Tab PO SCH (07:38)
[2021-06-12] MEDS: Simvastatin 10 MG Tab PO SCH (19:22)
[2021-06-12] MEDS: LEVOTHYROXINE 137 MCG PO SCH (19:22)
[2021-06-12] MEDS: BUPROPION 300 MG PO SCH (19:22)
[2021-06-12] MEDS: Menthol 10%/Methyl Salicylate 30% 85 GM Tube TOP PRN (19:23)
[2021-06-13] MEDS: Ibuprofen 600 MG Tab PO PRN (04:13)
[2021-06-13] MEDS: Albuterol/Ipratropium 3.0-0.5 MG/3 ML Neb Soln NEB SCH ×2 (08:42→19:44)
[2021-06-13] MEDS: Citalopram 20 MG Tab PO SCH (08:44)
[2021-06-13] MEDS: Fludrocortisone 0.1 MG Tab PO SCH ×2 (08:44→20:08)
[2021-06-13] MEDS: Docusate Sodium 100 MG Cap PO SCH ×2 (08:45→17:43)
[2021-06-13] MEDS: Furosemide 20 MG Tab PO SCH ×2 (08:45→11:54)
[2021-06-13] MEDS: Potassium Chloride 20 MEQ Tab.ER PO SCH ×4 (08:45→19:47)
[2021-06-13] MEDS: Ferrous Sulfate 325 MG Tab PO SCH (08:46)
[2021-06-13] MEDS: Niacin 500 MG Tab PO SCH ×2 (08:46→17:44)
[2021-06-13] MEDS: Calcium Carbonate 750 MG Tab.Chew PO SCH (08:46)
[2021-06-13] MEDS: Cholecalciferol (Vitamin D3) 25 MCG Tab PO SCH (08:47)
[2021-06-13] MEDS: Cyanocobalamin (Vitamin B12) 1,000 MCG Tab PO SCH (08:47)
[2021-06-13] MEDS: Acetaminophen 325 MG Tab PO SCH ×3 (08:47→17:44)
[2021-06-13] MEDS: BUPROPION 300 MG PO SCH (19:48)
[2021-06-13] MEDS: Simvastatin 10 MG Tab PO SCH (19:48)
[2021-06-13] MEDS: LEVOTHYROXINE 137 MCG PO SCH (19:48)
[2021-06-13] MEDS: Menthol 10%/Methyl Salicylate 30% 85 GM Tube TOP PRN (19:49)
[2021-06-14] MEDS: Cyanocobalamin (Vitamin B12) 1,000 MCG Tab PO SCH (07:32)
[2021-06-14] MEDS: Cholecalciferol (Vitamin D3) 25 MCG Tab PO SCH (07:32)
[2021-06-14] MEDS: Docusate Sodium 100 MG Cap PO SCH ×2 (07:32→17:18)
[2021-06-14] MEDS: Ibuprofen 600 MG Tab PO PRN (07:33)
[2021-06-14] MEDS: Acetaminophen 325 MG Tab PO SCH ×3 (07:33→17:18)
[2021-06-14] MEDS: Albuterol/Ipratropium 3.0-0.5 MG/3 ML Neb Soln NEB SCH ×2 (07:34→20:15)
[2021-06-14] MEDS: Citalopram 20 MG Tab PO SCH (07:34)
[2021-06-14] MEDS: Potassium Chloride 20 MEQ Tab.ER PO SCH ×4 (07:35→20:18)
[2021-06-14] MEDS: Fludrocortisone 0.1 MG Tab PO SCH ×2 (07:35→20:18)
[2021-06-14] MEDS: Furosemide 20 MG Tab PO SCH ×2 (07:35→11:15)
[2021-06-14] MEDS: Ferrous Sulfate 325 MG Tab PO SCH (07:35)
[2021-06-14] MEDS: Calcium Carbonate 750 MG Tab.Chew PO SCH (07:36)
[2021-06-14] MEDS: Niacin 500 MG Tab PO SCH ×2 (07:36→17:18)
[2021-06-14] MEDS: LEVOTHYROXINE 137 MCG PO SCH (20:19)
[2021-06-14] MEDS: BUPROPION 300 MG PO SCH (20:19)
[2021-06-14] MEDS: Simvastatin 10 MG Tab PO SCH (20:19)
[2021-06-14] MEDS: Menthol 10%/Methyl Salicylate 30% 85 GM Tube TOP PRN (20:20)
[2021-06-15] MEDS: Ibuprofen 600 MG Tab PO PRN (00:01)
[2021-06-15] MEDS: Fludrocortisone 0.1 MG Tab PO SCH ×2 (08:09→19:42)
[2021-06-15] MEDS: Citalopram 20 MG Tab PO SCH (08:09)
[2021-06-15] MEDS: Potassium Chloride 20 MEQ Tab.ER PO SCH ×4 (08:09→19:42)
[2021-06-15] MEDS: Furosemide 20 MG Tab PO SCH ×2 (08:10→12:33)
[2021-06-15] MEDS: Ferrous Sulfate 325 MG Tab PO SCH (08:11)
[2021-06-15] MEDS: Docusate Sodium 100 MG Cap PO SCH ×2 (08:12→17:39)
[2021-06-15] MEDS: Niacin 500 MG Tab PO SCH ×2 (08:12→17:39)
[2021-06-15] MEDS: Calcium Carbonate 750 MG Tab.Chew PO SCH (08:12)
[2021-06-15] MEDS: Cholecalciferol (Vitamin D3) 25 MCG Tab PO SCH (08:13)
[2021-06-15] MEDS: Cyanocobalamin (Vitamin B12) 1,000 MCG Tab PO SCH (08:13)
[2021-06-15] MEDS: Acetaminophen 325 MG Tab PO SCH ×3 (08:13→17:39)
[2021-06-15] MEDS: Albuterol/Ipratropium 3.0-0.5 MG/3 ML Neb Soln NEB SCH ×2 (08:14→19:42)
[2021-06-15] MEDS: BUPROPION 300 MG PO SCH (19:43)
[2021-06-15] MEDS: Simvastatin 10 MG Tab PO SCH (19:43)
[2021-06-15] MEDS: Menthol 10%/Methyl Salicylate 30% 85 GM Tube TOP PRN (19:43)
[2021-06-15] MEDS: LEVOTHYROXINE 137 MCG PO SCH (19:43)
[2021-06-16] MEDS: Ibuprofen 600 MG Tab PO PRN ×2 (02:16→23:44)
[2021-06-16] MEDS: Fludrocortisone 0.1 MG Tab PO SCH ×2 (08:05→19:45)
[2021-06-16] MEDS: Albuterol/Ipratropium 3.0-0.5 MG/3 ML Neb Soln NEB SCH ×2 (08:05→19:45)
[2021-06-16] MEDS: Citalopram 20 MG Tab PO SCH (08:05)
[2021-06-16] MEDS: Potassium Chloride 20 MEQ Tab.ER PO SCH ×4 (08:05→19:45)
[2021-06-16] MEDS: Docusate Sodium 100 MG Cap PO SCH ×2 (08:06→17:36)
[2021-06-16] MEDS: Niacin 500 MG Tab PO SCH ×2 (08:06→17:35)
[2021-06-16] MEDS: Cholecalciferol (Vitamin D3) 25 MCG Tab PO SCH (08:06)
[2021-06-16] MEDS: Ferrous Sulfate 325 MG Tab PO SCH (08:06)
[2021-06-16] MEDS: Furosemide 20 MG Tab PO SCH ×2 (08:06→11:00)
[2021-06-16] MEDS: Acetaminophen 325 MG Tab PO SCH ×3 (08:07→17:36)
[2021-06-16] MEDS: Cyanocobalamin (Vitamin B12) 1,000 MCG Tab PO SCH (08:07)
[2021-06-16] MEDS: Calcium Carbonate 750 MG Tab.Chew PO SCH (08:07)
[2021-06-16] MEDS: BUPROPION 300 MG PO SCH (19:45)
[2021-06-16] MEDS: LEVOTHYROXINE 137 MCG PO SCH (19:45)
[2021-06-16] MEDS: Simvastatin 10 MG Tab PO SCH (19:46)
[2021-06-16] MEDS: Menthol 10%/Methyl Salicylate 30% 85 GM Tube TOP PRN (19:46)
[2021-06-17] MEDS: guaiFENesin/Dextromethorphan 100-10 MG/5 ML Soln 10 ML Cup PO PRN ×2 (04:13→19:31)
[2021-06-17] MEDS: Albuterol/Ipratropium 3.0-0.5 MG/3 ML Neb Soln NEB SCH ×2 (07:23→19:30)
[2021-06-17] MEDS: Potassium Chloride 20 MEQ Tab.ER PO SCH ×4 (07:23→19:31)
[2021-06-17] MEDS: Citalopram 20 MG Tab PO SCH (07:23)
[2021-06-17] MEDS: Fludrocortisone 0.1 MG Tab PO SCH ×2 (07:23→19:30)
[2021-06-17] MEDS: Calcium Carbonate 750 MG Tab.Chew PO SCH (07:24)
[2021-06-17] MEDS: Cyanocobalamin (Vitamin B12) 1,000 MCG Tab PO SCH (07:24)
[2021-06-17] MEDS: Furosemide 20 MG Tab PO SCH ×2 (07:24→11:01)
[2021-06-17] MEDS: Cholecalciferol (Vitamin D3) 25 MCG Tab PO SCH (07:24)
[2021-06-17] MEDS: Docusate Sodium 100 MG Cap PO SCH ×2 (07:25→17:19)
[2021-06-17] MEDS: Acetaminophen 325 MG Tab PO SCH ×3 (07:25→17:18)
[2021-06-17] MEDS: Niacin 500 MG Tab PO SCH ×2 (07:25→17:18)
[2021-06-17] MEDS: Ferrous Sulfate 325 MG Tab PO SCH (07:25)
[2021-06-17] MEDS: BUPROPION 300 MG PO SCH (19:31)
[2021-06-17] MEDS: Simvastatin 10 MG Tab PO SCH (19:31)
[2021-06-17] MEDS: LEVOTHYROXINE 137 MCG PO SCH (19:31)
[2021-06-17] MEDS: Menthol 10%/Methyl Salicylate 30% 85 GM Tube TOP PRN (19:32)
[2021-06-17] MEDS: Ibuprofen 600 MG Tab PO PRN (23:58)
[2021-06-18] MEDS: Albuterol/Ipratropium 3.0-0.5 MG/3 ML Neb Soln NEB SCH ×2 (07:29→19:40)
[2021-06-18] MEDS: Docusate Sodium 100 MG Cap PO SCH ×2 (07:30→17:03)
[2021-06-18] MEDS: Ibuprofen 600 MG Tab PO PRN (07:30)
[2021-06-18] MEDS: Acetaminophen 325 MG Tab PO SCH ×3 (07:30→17:03)
[2021-06-18] MEDS: Furosemide 20 MG Tab PO SCH ×2 (07:41→11:06)
[2021-06-18] MEDS: Citalopram 20 MG Tab PO SCH (07:41)
[2021-06-18] MEDS: Fludrocortisone 0.1 MG Tab PO SCH ×2 (07:41→19:40)
[2021-06-18] MEDS: Potassium Chloride 20 MEQ Tab.ER PO SCH ×4 (07:41→19:41)
[2021-06-18] MEDS: Ferrous Sulfate 325 MG Tab PO SCH (07:41)
[2021-06-18] MEDS: Niacin 500 MG Tab PO SCH ×2 (07:42→17:03)
[2021-06-18] MEDS: Calcium Carbonate 750 MG Tab.Chew PO SCH (07:42)
[2021-06-18] MEDS: Cholecalciferol (Vitamin D3) 25 MCG Tab PO SCH (07:42)
[2021-06-18] MEDS: Cyanocobalamin (Vitamin B12) 1,000 MCG Tab PO SCH (07:42)
[2021-06-18] MEDS: Doxycycline Monohydrate 100 MG Cap PO SCH (17:57)
[2021-06-18] MEDS: Simvastatin 10 MG Tab PO SCH (19:41)
[2021-06-18] MEDS: BUPROPION 300 MG PO SCH (19:41)
[2021-06-18] MEDS: LEVOTHYROXINE 137 MCG PO SCH (19:41)
[2021-06-18] MEDS: guaiFENesin/Dextromethorphan 100-10 MG/5 ML Soln 10 ML Cup PO PRN (19:42)
[2021-06-18] MEDS: Menthol 10%/Methyl Salicylate 30% 85 GM Tube TOP PRN (19:42)
[2021-06-19] MEDS: Fludrocortisone 0.1 MG Tab PO SCH ×2 (08:52→19:51)
[2021-06-19] MEDS: Citalopram 20 MG Tab PO SCH (08:52)
[2021-06-19] MEDS: Doxycycline Monohydrate 100 MG Cap PO SCH ×2 (08:52→17:20)
[2021-06-19] MEDS: Potassium Chloride 20 MEQ Tab.ER PO SCH ×4 (08:52→19:51)
[2021-06-19] MEDS: Docusate Sodium 100 MG Cap PO SCH ×2 (08:53→17:21)
[2021-06-19] MEDS: Furosemide 20 MG Tab PO SCH ×2 (08:53→12:46)
[2021-06-19] MEDS: Albuterol/Ipratropium 3.0-0.5 MG/3 ML Neb Soln NEB SCH ×2 (08:54→19:50)
[2021-06-19] MEDS: Ferrous Sulfate 325 MG Tab PO SCH (08:54)
[2021-06-19] MEDS: Calcium Carbonate 750 MG Tab.Chew PO SCH (08:55)
[2021-06-19] MEDS: Acetaminophen 325 MG Tab PO SCH ×3 (08:55→17:22)
[2021-06-19] MEDS: Niacin 500 MG Tab PO SCH ×2 (08:55→17:21)
[2021-06-19] MEDS: Cyanocobalamin (Vitamin B12) 1,000 MCG Tab PO SCH (08:57)
[2021-06-19] MEDS: Cholecalciferol (Vitamin D3) 25 MCG Tab PO SCH (08:57)
[2021-06-19] MEDS: Simvastatin 10 MG Tab PO SCH (19:52)
[2021-06-19] MEDS: BUPROPION 300 MG PO SCH (19:52)
[2021-06-19] MEDS: LEVOTHYROXINE 137 MCG PO SCH (19:52)
[2021-06-19] MEDS: Menthol 10%/Methyl Salicylate 30% 85 GM Tube TOP PRN (19:53)
[2021-06-19] MEDS: guaiFENesin/Dextromethorphan 100-10 MG/5 ML Soln 10 ML Cup PO PRN (19:53)
[2021-06-20] MEDS: Furosemide 20 MG Tab PO SCH ×2 (08:28→11:44)
[2021-06-20] MEDS: Doxycycline Monohydrate 100 MG Cap PO SCH ×2 (08:29→17:28)
[2021-06-20] MEDS: Potassium Chloride 20 MEQ Tab.ER PO SCH ×4 (08:29→20:01)
[2021-06-20] MEDS: Fludrocortisone 0.1 MG Tab PO SCH ×2 (08:30→20:00)
[2021-06-20] MEDS: Citalopram 20 MG Tab PO SCH (08:30)
[2021-06-20] MEDS: Albuterol/Ipratropium 3.0-0.5 MG/3 ML Neb Soln NEB SCH ×2 (08:30→19:54)
[2021-06-20] MEDS: Cyanocobalamin (Vitamin B12) 1,000 MCG Tab PO SCH (08:31)
[2021-06-20] MEDS: Docusate Sodium 100 MG Cap PO SCH ×2 (08:31→17:27)
[2021-06-20] MEDS: Calcium Carbonate 750 MG Tab.Chew PO SCH (08:31)
[2021-06-20] MEDS: Cholecalciferol (Vitamin D3) 25 MCG Tab PO SCH (08:31)
[2021-06-20] MEDS: Niacin 500 MG Tab PO SCH ×2 (08:31→17:27)
[2021-06-20] MEDS: Ferrous Sulfate 325 MG Tab PO SCH (08:31)
[2021-06-20] MEDS: Acetaminophen 325 MG Tab PO SCH ×3 (08:32→17:27)
[2021-06-20] MEDS: Simvastatin 10 MG Tab PO SCH (20:01)
[2021-06-20] MEDS: LEVOTHYROXINE 137 MCG PO SCH (20:01)
[2021-06-20] MEDS: Menthol 10%/Methyl Salicylate 30% 85 GM Tube TOP PRN (20:01)
[2021-06-20] MEDS: BUPROPION 300 MG PO SCH (20:01)
[2021-06-20] MEDS: guaiFENesin/Dextromethorphan 100-10 MG/5 ML Soln 10 ML Cup PO PRN (20:18)
[2021-06-21] MEDS: Ibuprofen 600 MG Tab PO PRN (00:56)
[2021-06-21] MEDS: Furosemide 20 MG Tab PO SCH ×2 (08:36→12:05)
[2021-06-21] MEDS: Doxycycline Monohydrate 100 MG Cap PO SCH ×2 (08:36→17:45)
[2021-06-21] MEDS: Potassium Chloride 20 MEQ Tab.ER PO SCH ×4 (08:36→19:17)
[2021-06-21] MEDS: Citalopram 20 MG Tab PO SCH (08:37)
[2021-06-21] MEDS: Ferrous Sulfate 325 MG Tab PO SCH (08:37)
[2021-06-21] MEDS: Docusate Sodium 100 MG Cap PO SCH ×2 (08:37→17:44)
[2021-06-21] MEDS: Fludrocortisone 0.1 MG Tab PO SCH ×2 (08:37→19:16)
[2021-06-21] MEDS: Albuterol/Ipratropium 3.0-0.5 MG/3 ML Neb Soln NEB SCH ×2 (08:37→19:18)
[2021-06-21] MEDS: Niacin 500 MG Tab PO SCH ×2 (08:38→17:45)
[2021-06-21] MEDS: Calcium Carbonate 750 MG Tab.Chew PO SCH (08:38)
[2021-06-21] MEDS: Acetaminophen 325 MG Tab PO SCH ×3 (08:39→17:46)
[2021-06-21] MEDS: Cyanocobalamin (Vitamin B12) 1,000 MCG Tab PO SCH (08:40)
[2021-06-21] MEDS: Cholecalciferol (Vitamin D3) 25 MCG Tab PO SCH (08:40)
[2021-06-21] MEDS: BUPROPION 300 MG PO SCH (19:17)
[2021-06-21] MEDS: Simvastatin 10 MG Tab PO SCH (19:17)
[2021-06-21] MEDS: LEVOTHYROXINE 137 MCG PO SCH (19:17)
[2021-06-22] MEDS: Fludrocortisone 0.1 MG Tab PO SCH ×2 (07:19→20:06)
[2021-06-22] MEDS: Citalopram 20 MG Tab PO SCH (07:19)
[2021-06-22] MEDS: Docusate Sodium 100 MG Cap PO SCH ×2 (07:19→17:40)
[2021-06-22] MEDS: Albuterol/Ipratropium 3.0-0.5 MG/3 ML Neb Soln NEB SCH ×2 (07:20→20:04)
[2021-06-22] MEDS: Doxycycline Monohydrate 100 MG Cap PO SCH ×2 (07:20→17:41)
[2021-06-22] MEDS: Furosemide 20 MG Tab PO SCH ×2 (07:21→12:11)
[2021-06-22] MEDS: Potassium Chloride 20 MEQ Tab.ER PO SCH ×4 (07:21→20:07)
[2021-06-22] MEDS: Ferrous Sulfate 325 MG Tab PO SCH (07:21)
[2021-06-22] MEDS: Calcium Carbonate 750 MG Tab.Chew PO SCH (07:22)
[2021-06-22] MEDS: Niacin 500 MG Tab PO SCH ×2 (07:22→17:41)
[2021-06-22] MEDS: Acetaminophen 325 MG Tab PO SCH ×3 (07:23→17:42)
[2021-06-22] MEDS: Cholecalciferol (Vitamin D3) 25 MCG Tab PO SCH (07:25)
[2021-06-22] MEDS: Cyanocobalamin (Vitamin B12) 1,000 MCG Tab PO SCH (07:26)
[2021-06-22] MEDS: LEVOTHYROXINE 137 MCG PO SCH (20:07)
[2021-06-22] MEDS: BUPROPION 300 MG PO SCH (20:08)
[2021-06-22] MEDS: Simvastatin 10 MG Tab PO SCH (20:08)
[2021-06-22] MEDS: Menthol 10%/Methyl Salicylate 30% 85 GM Tube TOP PRN (20:09)
[2021-06-23] MEDS: Furosemide 20 MG Tab PO SCH ×2 (08:03→12:16)
[2021-06-23] MEDS: Citalopram 20 MG Tab PO SCH (08:03)
[2021-06-23] MEDS: Doxycycline Monohydrate 100 MG Cap PO SCH ×2 (08:03→17:39)
[2021-06-23] MEDS: Fludrocortisone 0.1 MG Tab PO SCH ×2 (08:03→19:56)
[2021-06-23] MEDS: Potassium Chloride 20 MEQ Tab.ER PO SCH ×4 (08:03→19:56)
[2021-06-23] MEDS: Calcium Carbonate 750 MG Tab.Chew PO SCH (08:04)
[2021-06-23] MEDS: Acetaminophen 325 MG Tab PO SCH ×3 (08:04→17:40)
[2021-06-23] MEDS: Cyanocobalamin (Vitamin B12) 1,000 MCG Tab PO SCH (08:05)
[2021-06-23] MEDS: Cholecalciferol (Vitamin D3) 25 MCG Tab PO SCH (08:05)
[2021-06-23] MEDS: Ferrous Sulfate 325 MG Tab PO SCH (08:06)
[2021-06-23] MEDS: Albuterol/Ipratropium 3.0-0.5 MG/3 ML Neb Soln NEB SCH ×2 (08:06→19:54)
[2021-06-23] MEDS: Niacin 500 MG Tab PO SCH ×2 (08:06→17:39)
[2021-06-23] MEDS: Docusate Sodium 100 MG Cap PO SCH ×2 (08:07→17:39)
[2021-06-23] MEDS: Ibuprofen 600 MG Tab PO PRN ×2 (12:15→17:41)
[2021-06-23] MEDS: Simvastatin 10 MG Tab PO SCH (19:57)
[2021-06-23] MEDS: LEVOTHYROXINE 137 MCG PO SCH (19:57)
[2021-06-23] MEDS: BUPROPION 300 MG PO SCH (19:57)
[2021-06-23] MEDS: Menthol 10%/Methyl Salicylate 30% 85 GM Tube TOP PRN (19:58)
[2021-06-24] MEDS: Ibuprofen 600 MG Tab PO PRN ×3 (01:19→17:48)
[2021-06-24] MEDS: Citalopram 20 MG Tab PO SCH (08:25)
[2021-06-24] MEDS: Fludrocortisone 0.1 MG Tab PO SCH ×2 (08:25→20:03)
[2021-06-24] MEDS: Potassium Chloride 20 MEQ Tab.ER PO SCH ×4 (08:26→20:03)
[2021-06-24] MEDS: Furosemide 20 MG Tab PO SCH ×2 (08:26→12:28)
[2021-06-24] MEDS: Doxycycline Monohydrate 100 MG Cap PO SCH ×2 (08:26→17:46)
[2021-06-24] MEDS: Albuterol/Ipratropium 3.0-0.5 MG/3 ML Neb Soln NEB SCH ×2 (08:27→20:00)
[2021-06-24] MEDS: Docusate Sodium 100 MG Cap PO SCH ×2 (08:27→17:47)
[2021-06-24] MEDS: Ferrous Sulfate 325 MG Tab PO SCH (08:28)
[2021-06-24] MEDS: Acetaminophen 325 MG Tab PO SCH ×3 (08:28→17:47)
[2021-06-24] MEDS: Calcium Carbonate 750 MG Tab.Chew PO SCH (08:29)
[2021-06-24] MEDS: Cholecalciferol (Vitamin D3) 25 MCG Tab PO SCH (08:29)
[2021-06-24] MEDS: Cyanocobalamin (Vitamin B12) 1,000 MCG Tab PO SCH (08:30)
[2021-06-24] MEDS: Niacin 500 MG Tab PO SCH ×2 (08:30→17:47)
[2021-06-24] MEDS: Simvastatin 10 MG Tab PO SCH (20:04)
[2021-06-24] MEDS: LEVOTHYROXINE 137 MCG PO SCH (20:04)
[2021-06-24] MEDS: BUPROPION 300 MG PO SCH (20:04)
[2021-06-24] MEDS: Menthol 10%/Methyl Salicylate 30% 85 GM Tube TOP PRN (20:08)
[2021-06-25] MEDS: Citalopram 20 MG Tab PO SCH (08:18)
[2021-06-25] MEDS: Fludrocortisone 0.1 MG Tab PO SCH ×2 (08:18→19:48)
[2021-06-25] MEDS: Doxycycline Monohydrate 100 MG Cap PO SCH (08:18)
[2021-06-25] MEDS: Potassium Chloride 20 MEQ Tab.ER PO SCH ×4 (08:19→19:49)
[2021-06-25] MEDS: Furosemide 20 MG Tab PO SCH ×2 (08:19→12:04)
[2021-06-25] MEDS: Docusate Sodium 100 MG Cap PO SCH ×2 (08:19→17:22)
[2021-06-25] MEDS: Niacin 500 MG Tab PO SCH ×2 (08:20→17:21)
[2021-06-25] MEDS: Ferrous Sulfate 325 MG Tab PO SCH (08:20)
[2021-06-25] MEDS: Albuterol/Ipratropium 3.0-0.5 MG/3 ML Neb Soln NEB SCH ×2 (08:20→19:48)
[2021-06-25] MEDS: Acetaminophen 325 MG Tab PO SCH ×3 (08:21→17:22)
[2021-06-25] MEDS: Calcium Carbonate 750 MG Tab.Chew PO SCH (08:21)
[2021-06-25] MEDS: Cyanocobalamin (Vitamin B12) 1,000 MCG Tab PO SCH (08:22)
[2021-06-25] MEDS: Cholecalciferol (Vitamin D3) 25 MCG Tab PO SCH (08:22)
[2021-06-25] MEDS: BUPROPION 300 MG PO SCH (19:49)
[2021-06-25] MEDS: LEVOTHYROXINE 137 MCG PO SCH (19:49)
[2021-06-25] MEDS: Simvastatin 10 MG Tab PO SCH (19:49)
[2021-06-25] MEDS: Menthol 10%/Methyl Salicylate 30% 85 GM Tube TOP PRN (19:50)
[2021-06-26] MEDS: Ibuprofen 600 MG Tab PO PRN ×2 (02:12→08:53)
[2021-06-26] MEDS: Potassium Chloride 20 MEQ Tab.ER PO SCH ×4 (08:33→19:26)
[2021-06-26] MEDS: Fludrocortisone 0.1 MG Tab PO SCH ×2 (08:33→19:25)
[2021-06-26] MEDS: Docusate Sodium 100 MG Cap PO SCH ×2 (08:33→17:45)
[2021-06-26] MEDS: Furosemide 20 MG Tab PO SCH ×2 (08:33→12:08)
[2021-06-26] MEDS: Citalopram 20 MG Tab PO SCH (08:33)
[2021-06-26] MEDS: Calcium Carbonate 750 MG Tab.Chew PO SCH (08:34)
[2021-06-26] MEDS: Ferrous Sulfate 325 MG Tab PO SCH (08:34)
[2021-06-26] MEDS: Albuterol/Ipratropium 3.0-0.5 MG/3 ML Neb Soln NEB SCH ×2 (08:34→19:25)
[2021-06-26] MEDS: Niacin 500 MG Tab PO SCH ×2 (08:34→17:45)
[2021-06-26] MEDS: Acetaminophen 325 MG Tab PO SCH ×3 (08:35→17:45)
[2021-06-26] MEDS: Cyanocobalamin (Vitamin B12) 1,000 MCG Tab PO SCH (08:36)
[2021-06-26] MEDS: Cholecalciferol (Vitamin D3) 25 MCG Tab PO SCH (08:36)
[2021-06-26] MEDS: BUPROPION 300 MG PO SCH (19:26)
[2021-06-26] MEDS: LEVOTHYROXINE 137 MCG PO SCH (19:26)
[2021-06-26] MEDS: Simvastatin 10 MG Tab PO SCH (19:26)
[2021-06-27] MEDS: Furosemide 20 MG Tab PO SCH ×2 (08:09→11:54)
[2021-06-27] MEDS: Potassium Chloride 20 MEQ Tab.ER PO SCH ×4 (08:09→19:55)
[2021-06-27] MEDS: Fludrocortisone 0.1 MG Tab PO SCH ×2 (08:10→19:54)
[2021-06-27] MEDS: Citalopram 20 MG Tab PO SCH (08:10)
[2021-06-27] MEDS: Docusate Sodium 100 MG Cap PO SCH ×2 (08:10→17:50)
[2021-06-27] MEDS: Niacin 500 MG Tab PO SCH ×2 (08:11→17:51)
[2021-06-27] MEDS: Ferrous Sulfate 325 MG Tab PO SCH (08:11)
[2021-06-27] MEDS: Albuterol/Ipratropium 3.0-0.5 MG/3 ML Neb Soln NEB SCH ×2 (08:11→19:52)
[2021-06-27] MEDS: Acetaminophen 325 MG Tab PO SCH ×3 (08:12→17:51)
[2021-06-27] MEDS: Calcium Carbonate 750 MG Tab.Chew PO SCH (08:12)
[2021-06-27] MEDS: Cyanocobalamin (Vitamin B12) 1,000 MCG Tab PO SCH (08:13)
[2021-06-27] MEDS: Cholecalciferol (Vitamin D3) 25 MCG Tab PO SCH (08:13)
[2021-06-27] MEDS: LEVOTHYROXINE 137 MCG PO SCH (19:55)
[2021-06-27] MEDS: BUPROPION 300 MG PO SCH (19:55)
[2021-06-27] MEDS: Simvastatin 10 MG Tab PO SCH (19:56)
[2021-06-27] MEDS: Menthol 10%/Methyl Salicylate 30% 85 GM Tube TOP PRN (19:58)
[2021-06-28] MEDS: Citalopram 20 MG Tab PO SCH (07:42)
[2021-06-28] MEDS: Fludrocortisone 0.1 MG Tab PO SCH ×2 (07:42→19:54)
[2021-06-28] MEDS: Albuterol/Ipratropium 3.0-0.5 MG/3 ML Neb Soln NEB SCH ×2 (07:42→19:54)
[2021-06-28] MEDS: Potassium Chloride 20 MEQ Tab.ER PO SCH ×4 (07:42→19:54)
[2021-06-28] MEDS: Ferrous Sulfate 325 MG Tab PO SCH (07:43)
[2021-06-28] MEDS: Cyanocobalamin (Vitamin B12) 1,000 MCG Tab PO SCH (07:43)
[2021-06-28] MEDS: Calcium Carbonate 750 MG Tab.Chew PO SCH (07:43)
[2021-06-28] MEDS: Furosemide 20 MG Tab PO SCH ×2 (07:43→11:50)
[2021-06-28] MEDS: Docusate Sodium 100 MG Cap PO SCH ×2 (07:43→17:04)
[2021-06-28] MEDS: Cholecalciferol (Vitamin D3) 25 MCG Tab PO SCH (07:43)
[2021-06-28] MEDS: Acetaminophen 325 MG Tab PO SCH ×3 (07:44→17:04)
[2021-06-28] MEDS: Niacin 500 MG Tab PO SCH ×2 (07:44→17:04)
[2021-06-28] MEDS: Simvastatin 10 MG Tab PO SCH (19:55)
[2021-06-28] MEDS: LEVOTHYROXINE 137 MCG PO SCH (19:55)
[2021-06-28] MEDS: BUPROPION 300 MG PO SCH (19:55)
[2021-06-28] MEDS: Menthol 10%/Methyl Salicylate 30% 85 GM Tube TOP PRN (19:55)
[2021-06-28] MEDS: Ibuprofen 600 MG Tab PO PRN (19:58)
[2021-06-29] MEDS: Ibuprofen 600 MG Tab PO PRN (03:08)
[2021-06-29] MEDS: Niacin 500 MG Tab PO SCH ×2 (07:48→17:33)
[2021-06-29] MEDS: Docusate Sodium 100 MG Cap PO SCH ×2 (07:48→17:33)
[2021-06-29] MEDS: Albuterol/Ipratropium 3.0-0.5 MG/3 ML Neb Soln NEB SCH ×2 (07:48→19:19)
[2021-06-29] MEDS: Ferrous Sulfate 325 MG Tab PO SCH (07:49)
[2021-06-29] MEDS: Acetaminophen 325 MG Tab PO SCH ×3 (07:49→17:34)
[2021-06-29] MEDS: Cholecalciferol (Vitamin D3) 25 MCG Tab PO SCH (07:49)
[2021-06-29] MEDS: Calcium Carbonate 750 MG Tab.Chew PO SCH (07:49)
[2021-06-29] MEDS: Cyanocobalamin (Vitamin B12) 1,000 MCG Tab PO SCH (07:49)
[2021-06-29] MEDS: Potassium Chloride 20 MEQ Tab.ER PO SCH ×4 (07:50→19:19)
[2021-06-29] MEDS: Citalopram 20 MG Tab PO SCH (07:51)
[2021-06-29] MEDS: Fludrocortisone 0.1 MG Tab PO SCH ×2 (07:51→19:19)
[2021-06-29] MEDS: Furosemide 20 MG Tab PO SCH ×2 (07:51→12:05)
[2021-06-29] MEDS: Simvastatin 10 MG Tab PO SCH (19:19)
[2021-06-29] MEDS: LEVOTHYROXINE 137 MCG PO SCH (19:19)
[2021-06-29] MEDS: BUPROPION 300 MG PO SCH (19:19)
[2021-06-30] MEDS: Albuterol/Ipratropium 3.0-0.5 MG/3 ML Neb Soln NEB SCH ×2 (07:48→19:28)
[2021-06-30] MEDS: Potassium Chloride 20 MEQ Tab.ER PO SCH ×4 (07:48→19:29)
[2021-06-30] MEDS: Furosemide 20 MG Tab PO SCH ×2 (07:49→11:57)
[2021-06-30] MEDS: Niacin 500 MG Tab PO SCH ×2 (07:49→17:20)
[2021-06-30] MEDS: Citalopram 20 MG Tab PO SCH (07:49)
[2021-06-30] MEDS: Calcium Carbonate 750 MG Tab.Chew PO SCH (07:49)
[2021-06-30] MEDS: Fludrocortisone 0.1 MG Tab PO SCH ×2 (07:49→19:29)
[2021-06-30] MEDS: Ferrous Sulfate 325 MG Tab PO SCH (07:50)
[2021-06-30] MEDS: Cyanocobalamin (Vitamin B12) 1,000 MCG Tab PO SCH (07:50)
[2021-06-30] MEDS: Cholecalciferol (Vitamin D3) 25 MCG Tab PO SCH (07:50)
[2021-06-30] MEDS: Docusate Sodium 100 MG Cap PO SCH ×2 (07:50→17:20)
[2021-06-30] MEDS: Acetaminophen 325 MG Tab PO SCH ×3 (07:50→17:20)
[2021-06-30] MEDS: Simvastatin 10 MG Tab PO SCH (19:29)
[2021-06-30] MEDS: LEVOTHYROXINE 137 MCG PO SCH (19:29)
[2021-06-30] MEDS: BUPROPION 300 MG PO SCH (19:29)
[2021-07-01] MEDS: Ibuprofen 600 MG Tab PO PRN (01:18)
[2021-07-01] MEDS: Potassium Chloride 20 MEQ Tab.ER PO SCH ×4 (08:23→19:30)
[2021-07-01] MEDS: Fludrocortisone 0.1 MG Tab PO SCH ×2 (08:24→19:29)
[2021-07-01] MEDS: Furosemide 20 MG Tab PO SCH ×2 (08:24→12:10)
[2021-07-01] MEDS: Citalopram 20 MG Tab PO SCH (08:24)
[2021-07-01] MEDS: Albuterol/Ipratropium 3.0-0.5 MG/3 ML Neb Soln NEB SCH ×2 (08:25→19:31)
[2021-07-01] MEDS: Docusate Sodium 100 MG Cap PO SCH ×2 (08:25→17:08)
[2021-07-01] MEDS: Niacin 500 MG Tab PO SCH ×2 (08:25→17:08)
[2021-07-01] MEDS: Ferrous Sulfate 325 MG Tab PO SCH (08:25)
[2021-07-01] MEDS: Acetaminophen 325 MG Tab PO SCH ×3 (08:26→17:08)
[2021-07-01] MEDS: Calcium Carbonate 750 MG Tab.Chew PO SCH (08:26)
[2021-07-01] MEDS: Cholecalciferol (Vitamin D3) 25 MCG Tab PO SCH (08:28)
[2021-07-01] MEDS: Cyanocobalamin (Vitamin B12) 1,000 MCG Tab PO SCH (08:28)
[2021-07-01] MEDS: BUPROPION 300 MG PO SCH (19:30)
[2021-07-01] MEDS: Simvastatin 10 MG Tab PO SCH (19:30)
[2021-07-01] MEDS: LEVOTHYROXINE 137 MCG PO SCH (19:30)
[2021-07-02] MEDS: Albuterol/Ipratropium 3.0-0.5 MG/3 ML Neb Soln NEB SCH ×2 (07:59→19:53)
[2021-07-02] MEDS: Potassium Chloride 20 MEQ Tab.ER PO SCH ×4 (07:59→19:53)
[2021-07-02] MEDS: Fludrocortisone 0.1 MG Tab PO SCH ×2 (08:00→19:53)
[2021-07-02] MEDS: Citalopram 20 MG Tab PO SCH (08:00)
[2021-07-02] MEDS: Furosemide 20 MG Tab PO SCH ×2 (08:00→11:54)
[2021-07-02] MEDS: Niacin 500 MG Tab PO SCH ×2 (08:01→17:52)
[2021-07-02] MEDS: Calcium Carbonate 750 MG Tab.Chew PO SCH (08:01)
[2021-07-02] MEDS: Cholecalciferol (Vitamin D3) 25 MCG Tab PO SCH (08:01)
[2021-07-02] MEDS: Cyanocobalamin (Vitamin B12) 1,000 MCG Tab PO SCH (08:01)
[2021-07-02] MEDS: Ferrous Sulfate 325 MG Tab PO SCH (08:02)
[2021-07-02] MEDS: Docusate Sodium 100 MG Cap PO SCH ×2 (08:02→17:52)
[2021-07-02] MEDS: Acetaminophen 325 MG Tab PO SCH ×3 (08:02→17:53)
[2021-07-02] MEDS: LEVOTHYROXINE 137 MCG PO SCH (19:53)
[2021-07-02] MEDS: BUPROPION 300 MG PO SCH (19:53)
[2021-07-02] MEDS: Simvastatin 10 MG Tab PO SCH (19:54)
[2021-07-02] MEDS: Menthol 10%/Methyl Salicylate 30% 85 GM Tube TOP PRN (19:54)
[2021-07-03] MEDS: Citalopram 20 MG Tab PO SCH (08:31)
[2021-07-03] MEDS: Potassium Chloride 20 MEQ Tab.ER PO SCH ×4 (08:31→19:22)
[2021-07-03] MEDS: Fludrocortisone 0.1 MG Tab PO SCH ×2 (08:31→19:22)
[2021-07-03] MEDS: Docusate Sodium 100 MG Cap PO SCH ×2 (08:32→17:50)
[2021-07-03] MEDS: Furosemide 20 MG Tab PO SCH ×2 (08:32→11:58)
[2021-07-03] MEDS: Albuterol/Ipratropium 3.0-0.5 MG/3 ML Neb Soln NEB SCH ×2 (08:33→19:21)
[2021-07-03] MEDS: Ferrous Sulfate 325 MG Tab PO SCH (08:33)
[2021-07-03] MEDS: Niacin 500 MG Tab PO SCH ×2 (08:33→17:51)
[2021-07-03] MEDS: Acetaminophen 325 MG Tab PO SCH ×3 (08:34→17:51)
[2021-07-03] MEDS: Calcium Carbonate 750 MG Tab.Chew PO SCH (08:34)
[2021-07-03] MEDS: Cholecalciferol (Vitamin D3) 25 MCG Tab PO SCH (08:35)
[2021-07-03] MEDS: Cyanocobalamin (Vitamin B12) 1,000 MCG Tab PO SCH (08:36)
[2021-07-03] MEDS: Ibuprofen 600 MG Tab PO PRN (14:57)
[2021-07-03] MEDS: LEVOTHYROXINE 137 MCG PO SCH (19:22)
[2021-07-03] MEDS: BUPROPION 300 MG PO SCH (19:22)
[2021-07-03] MEDS: Simvastatin 10 MG Tab PO SCH (19:22)
[2021-07-04] MEDS: Ibuprofen 600 MG Tab PO PRN (00:11)
[2021-07-04] MEDS: Potassium Chloride 20 MEQ Tab.ER PO SCH ×4 (07:32→20:20)
[2021-07-04] MEDS: Acetaminophen 325 MG Tab PO SCH ×3 (07:33→17:28)
[2021-07-04] MEDS: Citalopram 20 MG Tab PO SCH (07:33)
[2021-07-04] MEDS: Niacin 500 MG Tab PO SCH ×2 (07:33→17:28)
[2021-07-04] MEDS: Furosemide 20 MG Tab PO SCH ×2 (07:33→12:08)
[2021-07-04] MEDS: Fludrocortisone 0.1 MG Tab PO SCH ×2 (07:33→20:19)
[2021-07-04] MEDS: Calcium Carbonate 750 MG Tab.Chew PO SCH (07:34)
[2021-07-04] MEDS: Docusate Sodium 100 MG Cap PO SCH ×2 (07:35→17:28)
[2021-07-04] MEDS: Cyanocobalamin (Vitamin B12) 1,000 MCG Tab PO SCH (07:35)
[2021-07-04] MEDS: Cholecalciferol (Vitamin D3) 25 MCG Tab PO SCH (07:35)
[2021-07-04] MEDS: Albuterol/Ipratropium 3.0-0.5 MG/3 ML Neb Soln NEB SCH ×2 (07:36→20:10)
[2021-07-04] MEDS: Ferrous Sulfate 325 MG Tab PO SCH (07:36)
[2021-07-04] MEDS: BUPROPION 300 MG PO SCH (20:20)
[2021-07-04] MEDS: LEVOTHYROXINE 137 MCG PO SCH (20:20)
[2021-07-04] MEDS: Simvastatin 10 MG Tab PO SCH (20:20)
[2021-07-04] MEDS: Menthol 10%/Methyl Salicylate 30% 85 GM Tube TOP PRN (20:22)
[2021-07-05] MEDS: Ibuprofen 600 MG Tab PO PRN ×2 (00:51→17:40)
[2021-07-05] MEDS: Albuterol/Ipratropium 3.0-0.5 MG/3 ML Neb Soln NEB SCH ×2 (07:19→20:25)
[2021-07-05] MEDS: Potassium Chloride 20 MEQ Tab.ER PO SCH ×4 (08:09→20:29)
[2021-07-05] MEDS: Docusate Sodium 100 MG Cap PO SCH ×2 (08:10→17:42)
[2021-07-05] MEDS: Furosemide 20 MG Tab PO SCH ×2 (08:10→11:59)
[2021-07-05] MEDS: Fludrocortisone 0.1 MG Tab PO SCH ×2 (08:10→20:28)
[2021-07-05] MEDS: Citalopram 20 MG Tab PO SCH (08:10)
[2021-07-05] MEDS: Ferrous Sulfate 325 MG Tab PO SCH (08:11)
[2021-07-05] MEDS: Calcium Carbonate 750 MG Tab.Chew PO SCH (08:11)
[2021-07-05] MEDS: Niacin 500 MG Tab PO SCH ×2 (08:11→17:42)
[2021-07-05] MEDS: Acetaminophen 325 MG Tab PO SCH ×3 (08:12→17:42)
[2021-07-05] MEDS: Cyanocobalamin (Vitamin B12) 1,000 MCG Tab PO SCH (08:12)
[2021-07-05] MEDS: Cholecalciferol (Vitamin D3) 25 MCG Tab PO SCH (08:13)
[2021-07-05] MEDS: LEVOTHYROXINE 137 MCG PO SCH (20:29)
[2021-07-05] MEDS: BUPROPION 300 MG PO SCH (20:29)
[2021-07-05] MEDS: Menthol 10%/Methyl Salicylate 30% 85 GM Tube TOP PRN (20:30)
[2021-07-05] MEDS: Simvastatin 10 MG Tab PO SCH (20:30)
[2021-07-06] MEDS: Furosemide 20 MG Tab PO SCH ×2 (07:23→12:10)
[2021-07-06] MEDS: Potassium Chloride 20 MEQ Tab.ER PO SCH ×4 (07:24→19:43)
[2021-07-06] MEDS: Fludrocortisone 0.1 MG Tab PO SCH ×2 (07:24→19:42)
[2021-07-06] MEDS: Citalopram 20 MG Tab PO SCH (07:24)
[2021-07-06] MEDS: Calcium Carbonate 750 MG Tab.Chew PO SCH (07:25)
[2021-07-06] MEDS: Docusate Sodium 100 MG Cap PO SCH ×2 (07:25→17:40)
[2021-07-06] MEDS: Ferrous Sulfate 325 MG Tab PO SCH (07:25)
[2021-07-06] MEDS: Niacin 500 MG Tab PO SCH ×2 (07:26→17:39)
[2021-07-06] MEDS: Cholecalciferol (Vitamin D3) 25 MCG Tab PO SCH (07:26)
[2021-07-06] MEDS: Cyanocobalamin (Vitamin B12) 1,000 MCG Tab PO SCH (07:26)
[2021-07-06] MEDS: Acetaminophen 325 MG Tab PO SCH ×2 (07:26→12:10)
[2021-07-06] MEDS: Albuterol/Ipratropium 3.0-0.5 MG/3 ML Neb Soln NEB SCH ×2 (07:27→19:40)
[2021-07-06] MEDS ORDERED: Acetaminophen 325 MG Tab PO SCH (18:00)
[2021-07-06] MEDS: Simvastatin 10 MG Tab PO SCH (19:43)
[2021-07-06] MEDS: BUPROPION 300 MG PO SCH (19:43)
[2021-07-06] MEDS: LEVOTHYROXINE 137 MCG PO SCH (19:43)
[2021-07-06] MEDS: Acetaminophen 500 MG Tab PO SCH (19:44)
[2021-07-06] MEDS: Menthol 10%/Methyl Salicylate 30% 85 GM Tube TOP PRN (19:44)
[2021-07-07] MEDS: Albuterol/Ipratropium 3.0-0.5 MG/3 ML Neb Soln NEB SCH ×2 (07:37→20:00)
[2021-07-07] MEDS: Furosemide 20 MG Tab PO SCH ×2 (07:37→11:56)
[2021-07-07] MEDS: Citalopram 20 MG Tab PO SCH (07:38)
[2021-07-07] MEDS: Potassium Chloride 20 MEQ Tab.ER PO SCH ×4 (07:38→20:01)
[2021-07-07] MEDS: Niacin 500 MG Tab PO SCH ×2 (07:38→17:12)
[2021-07-07] MEDS: Fludrocortisone 0.1 MG Tab PO SCH ×2 (07:38→20:00)
[2021-07-07] MEDS: Cyanocobalamin (Vitamin B12) 1,000 MCG Tab PO SCH (07:39)
[2021-07-07] MEDS: Cholecalciferol (Vitamin D3) 25 MCG Tab PO SCH (07:39)
[2021-07-07] MEDS: Acetaminophen 500 MG Tab PO SCH ×3 (07:39→20:02)
[2021-07-07] MEDS: Calcium Carbonate 750 MG Tab.Chew PO SCH (07:40)
[2021-07-07] MEDS: Docusate Sodium 100 MG Cap PO SCH ×2 (07:40→17:12)
[2021-07-07] MEDS: Ferrous Sulfate 325 MG Tab PO SCH (07:40)
[2021-07-07] MEDS: LEVOTHYROXINE 137 MCG PO SCH (20:01)
[2021-07-07] MEDS: Simvastatin 10 MG Tab PO SCH (20:01)
[2021-07-07] MEDS: BUPROPION 300 MG PO SCH (20:01)
[2021-07-08] MEDS: Citalopram 20 MG Tab PO SCH (07:31)
[2021-07-08] MEDS: Albuterol/Ipratropium 3.0-0.5 MG/3 ML Neb Soln NEB SCH ×2 (07:31→19:54)
[2021-07-08] MEDS: Furosemide 20 MG Tab PO SCH ×2 (07:31→11:46)
[2021-07-08] MEDS: Fludrocortisone 0.1 MG Tab PO SCH ×2 (07:31→19:56)
[2021-07-08] MEDS: Docusate Sodium 100 MG Cap PO SCH ×2 (07:32→17:27)
[2021-07-08] MEDS: Potassium Chloride 20 MEQ Tab.ER PO SCH ×4 (07:32→19:56)
[2021-07-08] MEDS: Ferrous Sulfate 325 MG Tab PO SCH (07:32)
[2021-07-08] MEDS: Cholecalciferol (Vitamin D3) 25 MCG Tab PO SCH (07:33)
[2021-07-08] MEDS: Calcium Carbonate 750 MG Tab.Chew PO SCH (07:33)
[2021-07-08] MEDS: Cyanocobalamin (Vitamin B12) 1,000 MCG Tab PO SCH (07:33)
[2021-07-08] MEDS: Acetaminophen 500 MG Tab PO SCH ×3 (07:33→19:57)
[2021-07-08] MEDS: Niacin 500 MG Tab PO SCH ×2 (07:33→17:27)
[2021-07-08] MEDS: BUPROPION 300 MG PO SCH (19:57)
[2021-07-08] MEDS: LEVOTHYROXINE 137 MCG PO SCH (19:57)
[2021-07-08] MEDS: Simvastatin 10 MG Tab PO SCH (19:58)
[2021-07-08] MEDS: Menthol 10%/Methyl Salicylate 30% 85 GM Tube TOP PRN (19:59)
[2021-07-09] MEDS: Albuterol/Ipratropium 3.0-0.5 MG/3 ML Neb Soln NEB SCH ×2 (07:46→19:15)
[2021-07-09] MEDS: Fludrocortisone 0.1 MG Tab PO SCH ×2 (07:50→19:14)
[2021-07-09] MEDS: Furosemide 20 MG Tab PO SCH ×2 (07:50→11:58)
[2021-07-09] MEDS: Citalopram 20 MG Tab PO SCH (07:50)
[2021-07-09] MEDS: Ferrous Sulfate 325 MG Tab PO SCH (07:51)
[2021-07-09] MEDS: Potassium Chloride 20 MEQ Tab.ER PO SCH ×4 (07:51→19:14)
[2021-07-09] MEDS: Docusate Sodium 100 MG Cap PO SCH ×2 (07:51→17:48)
[2021-07-09] MEDS: Calcium Carbonate 750 MG Tab.Chew PO SCH (07:52)
[2021-07-09] MEDS: Niacin 500 MG Tab PO SCH ×2 (07:52→17:48)
[2021-07-09] MEDS: Acetaminophen 500 MG Tab PO SCH ×3 (07:53→19:16)
[2021-07-09] MEDS: Cyanocobalamin (Vitamin B12) 1,000 MCG Tab PO SCH (07:54)
[2021-07-09] MEDS: Cholecalciferol (Vitamin D3) 25 MCG Tab PO SCH (07:54)
[2021-07-09] MEDS: LEVOTHYROXINE 137 MCG PO SCH (19:15)
[2021-07-09] MEDS: BUPROPION 300 MG PO SCH (19:15)
[2021-07-09] MEDS: Simvastatin 10 MG Tab PO SCH (19:15)
[2021-07-10] MEDS: Potassium Chloride 20 MEQ Tab.ER PO SCH ×4 (08:23→19:20)
[2021-07-10] MEDS: Fludrocortisone 0.1 MG Tab PO SCH ×2 (08:24→19:20)
[2021-07-10] MEDS: Citalopram 20 MG Tab PO SCH (08:24)
[2021-07-10] MEDS: Furosemide 20 MG Tab PO SCH ×2 (08:24→12:05)
[2021-07-10] MEDS: Niacin 500 MG Tab PO SCH ×2 (08:25→17:59)
[2021-07-10] MEDS: Acetaminophen 500 MG Tab PO SCH ×3 (08:25→19:22)
[2021-07-10] MEDS: Calcium Carbonate 750 MG Tab.Chew PO SCH (08:26)
[2021-07-10] MEDS: Cholecalciferol (Vitamin D3) 25 MCG Tab PO SCH (08:26)
[2021-07-10] MEDS: Docusate Sodium 100 MG Cap PO SCH ×2 (08:27→17:58)
[2021-07-10] MEDS: Albuterol/Ipratropium 3.0-0.5 MG/3 ML Neb Soln NEB SCH ×2 (08:27→19:19)
[2021-07-10] MEDS: Ferrous Sulfate 325 MG Tab PO SCH (08:27)
[2021-07-10] MEDS: Cyanocobalamin (Vitamin B12) 1,000 MCG Tab PO SCH (08:28)
[2021-07-10] MEDS: Simvastatin 10 MG Tab PO SCH (19:20)
[2021-07-10] MEDS: LEVOTHYROXINE 137 MCG PO SCH (19:20)
[2021-07-10] MEDS: BUPROPION 300 MG PO SCH (19:20)
[2021-07-11] MEDS: Fludrocortisone 0.1 MG Tab PO SCH ×2 (08:13→19:19)
[2021-07-11] MEDS: Furosemide 20 MG Tab PO SCH ×2 (08:13→12:01)
[2021-07-11] MEDS: Potassium Chloride 20 MEQ Tab.ER PO SCH ×4 (08:13→19:20)
[2021-07-11] MEDS: Citalopram 20 MG Tab PO SCH (08:13)
[2021-07-11] MEDS: Albuterol/Ipratropium 3.0-0.5 MG/3 ML Neb Soln NEB SCH ×2 (08:14→19:19)
[2021-07-11] MEDS: Ferrous Sulfate 325 MG Tab PO SCH (08:14)
[2021-07-11] MEDS: Docusate Sodium 100 MG Cap PO SCH ×2 (08:14→17:51)
[2021-07-11] MEDS: Niacin 500 MG Tab PO SCH ×2 (08:15→17:50)
[2021-07-11] MEDS: Calcium Carbonate 750 MG Tab.Chew PO SCH (08:15)
[2021-07-11] MEDS: Acetaminophen 500 MG Tab PO SCH ×3 (08:16→19:20)
[2021-07-11] MEDS: Cyanocobalamin (Vitamin B12) 1,000 MCG Tab PO SCH (08:17)
[2021-07-11] MEDS: Cholecalciferol (Vitamin D3) 25 MCG Tab PO SCH (08:17)
[2021-07-11] MEDS ORDERED: Atropine/Diphenoxylate 0.025-2.5 MG Tab PO PRN (09:32)
[2021-07-11] MEDS: LEVOTHYROXINE 137 MCG PO SCH (19:19)
[2021-07-11] MEDS: BUPROPION 300 MG PO SCH (19:19)
[2021-07-11] MEDS: Simvastatin 10 MG Tab PO SCH (19:19)
[2021-07-12] MEDS: Furosemide 20 MG Tab PO SCH ×2 (07:48→11:07)
[2021-07-12] MEDS: Potassium Chloride 20 MEQ Tab.ER PO SCH ×4 (07:48→20:07)
[2021-07-12] MEDS: Citalopram 20 MG Tab PO SCH (07:48)
[2021-07-12] MEDS: Cholecalciferol (Vitamin D3) 25 MCG Tab PO SCH (07:49)
[2021-07-12] MEDS: Cyanocobalamin (Vitamin B12) 1,000 MCG Tab PO SCH (07:49)
[2021-07-12] MEDS: Fludrocortisone 0.1 MG Tab PO SCH ×2 (07:49→20:07)
[2021-07-12] MEDS: Acetaminophen 500 MG Tab PO SCH ×3 (07:49→20:08)
[2021-07-12] MEDS: Niacin 500 MG Tab PO SCH ×2 (07:49→18:01)
[2021-07-12] MEDS: Calcium Carbonate 750 MG Tab.Chew PO SCH (07:50)
[2021-07-12] MEDS: Albuterol/Ipratropium 3.0-0.5 MG/3 ML Neb Soln NEB SCH ×2 (07:51→20:07)
[2021-07-12] MEDS: Ferrous Sulfate 325 MG Tab PO SCH (07:51)
[2021-07-12] MEDS: Docusate Sodium 100 MG Cap PO SCH ×2 (07:51→18:02)
[2021-07-12] MEDS: LEVOTHYROXINE 137 MCG PO SCH (20:08)
[2021-07-12] MEDS: Simvastatin 10 MG Tab PO SCH (20:08)
[2021-07-12] MEDS: BUPROPION 300 MG PO SCH (20:08)
[2021-07-12] MEDS: Menthol 10%/Methyl Salicylate 30% 85 GM Tube TOP PRN (20:09)
[2021-07-13] MEDS: Albuterol/Ipratropium 3.0-0.5 MG/3 ML Neb Soln NEB SCH ×2 (07:46→19:42)
[2021-07-13] MEDS: Docusate Sodium 100 MG Cap PO SCH ×2 (07:47→17:06)
[2021-07-13] MEDS: Potassium Chloride 20 MEQ Tab.ER PO SCH ×4 (07:47→19:43)
[2021-07-13] MEDS: Furosemide 20 MG Tab PO SCH ×2 (07:47→11:38)
[2021-07-13] MEDS: Cholecalciferol (Vitamin D3) 25 MCG Tab PO SCH (07:48)
[2021-07-13] MEDS: Citalopram 20 MG Tab PO SCH (07:48)
[2021-07-13] MEDS: Fludrocortisone 0.1 MG Tab PO SCH ×2 (07:48→19:43)
[2021-07-13] MEDS: Cyanocobalamin (Vitamin B12) 1,000 MCG Tab PO SCH (07:48)
[2021-07-13] MEDS: Acetaminophen 500 MG Tab PO SCH ×3 (07:49→19:44)
[2021-07-13] MEDS: Calcium Carbonate 750 MG Tab.Chew PO SCH (07:49)
[2021-07-13] MEDS: Niacin 500 MG Tab PO SCH ×2 (07:49→17:06)
[2021-07-13] MEDS: Ferrous Sulfate 325 MG Tab PO SCH (07:50)
[2021-07-13] MEDS: BUPROPION 300 MG PO SCH (19:43)
[2021-07-13] MEDS: LEVOTHYROXINE 137 MCG PO SCH (19:43)
[2021-07-13] MEDS: Simvastatin 10 MG Tab PO SCH (19:44)
[2021-07-13] MEDS: Menthol 10%/Methyl Salicylate 30% 85 GM Tube TOP PRN (19:45)
[2021-07-14] MEDS: Ibuprofen 600 MG Tab PO PRN (05:12)
[2021-07-14] MEDS: Citalopram 20 MG Tab PO SCH (07:55)
[2021-07-14] MEDS: Furosemide 20 MG Tab PO SCH ×2 (07:55→12:03)
[2021-07-14] MEDS: Potassium Chloride 20 MEQ Tab.ER PO SCH ×4 (07:55→20:06)
[2021-07-14] MEDS: Docusate Sodium 100 MG Cap PO SCH ×2 (07:56→17:00)
[2021-07-14] MEDS: Fludrocortisone 0.1 MG Tab PO SCH ×2 (07:56→20:06)
[2021-07-14] MEDS: Albuterol/Ipratropium 3.0-0.5 MG/3 ML Neb Soln NEB SCH ×2 (07:56→20:03)
[2021-07-14] MEDS: Niacin 500 MG Tab PO SCH ×2 (07:57→17:00)
[2021-07-14] MEDS: Calcium Carbonate 750 MG Tab.Chew PO SCH (07:57)
[2021-07-14] MEDS: Ferrous Sulfate 325 MG Tab PO SCH (07:57)
[2021-07-14] MEDS: Acetaminophen 500 MG Tab PO SCH ×3 (07:58→20:07)
[2021-07-14] MEDS: Cyanocobalamin (Vitamin B12) 1,000 MCG Tab PO SCH (07:59)
[2021-07-14] MEDS: Cholecalciferol (Vitamin D3) 25 MCG Tab PO SCH (07:59)
[2021-07-14] MEDS: LEVOTHYROXINE 137 MCG PO SCH (20:07)
[2021-07-14] MEDS: BUPROPION 300 MG PO SCH (20:07)
[2021-07-14] MEDS: Menthol 10%/Methyl Salicylate 30% 85 GM Tube TOP PRN (20:08)
[2021-07-14] MEDS: Simvastatin 10 MG Tab PO SCH (20:08)
[2021-07-15] MEDS: Ibuprofen 600 MG Tab PO PRN (07:50)
[2021-07-15] MEDS: Furosemide 20 MG Tab PO SCH ×2 (07:51→12:00)
[2021-07-15] MEDS: guaiFENesin/Dextromethorphan 100-10 MG/5 ML Soln 10 ML Cup PO PRN (07:51)
[2021-07-15] MEDS: Potassium Chloride 20 MEQ Tab.ER PO SCH ×4 (07:51→19:59)
[2021-07-15] MEDS: Citalopram 20 MG Tab PO SCH (07:52)
[2021-07-15] MEDS: Fludrocortisone 0.1 MG Tab PO SCH ×2 (07:52→19:59)
[2021-07-15] MEDS: Ferrous Sulfate 325 MG Tab PO SCH (07:52)
[2021-07-15] MEDS: Albuterol/Ipratropium 3.0-0.5 MG/3 ML Neb Soln NEB SCH ×2 (07:53→19:55)
[2021-07-15] MEDS: Docusate Sodium 100 MG Cap PO SCH ×2 (07:53→17:01)
[2021-07-15] MEDS: Niacin 500 MG Tab PO SCH ×2 (07:54→17:02)
[2021-07-15] MEDS: Acetaminophen 500 MG Tab PO SCH ×3 (07:54→20:00)
[2021-07-15] MEDS: Calcium Carbonate 750 MG Tab.Chew PO SCH (07:54)
[2021-07-15] MEDS: Cyanocobalamin (Vitamin B12) 1,000 MCG Tab PO SCH (07:55)
[2021-07-15] MEDS: Cholecalciferol (Vitamin D3) 25 MCG Tab PO SCH (07:55)
[2021-07-15] MEDS: LEVOTHYROXINE 137 MCG PO SCH (19:59)
[2021-07-15] MEDS: BUPROPION 300 MG PO SCH (20:00)
[2021-07-15] MEDS: Simvastatin 10 MG Tab PO SCH (20:01)
[2021-07-15] MEDS: Menthol 10%/Methyl Salicylate 30% 85 GM Tube TOP PRN (20:02)
[2021-07-16] MEDS: Albuterol/Ipratropium 3.0-0.5 MG/3 ML Neb Soln NEB SCH ×2 (07:29→20:03)
[2021-07-16] MEDS: Potassium Chloride 20 MEQ Tab.ER PO SCH ×4 (07:31→20:03)
[2021-07-16] MEDS: Citalopram 20 MG Tab PO SCH (07:31)
[2021-07-16] MEDS: Fludrocortisone 0.1 MG Tab PO SCH ×2 (07:31→20:03)
[2021-07-16] MEDS: Cyanocobalamin (Vitamin B12) 1,000 MCG Tab PO SCH (07:32)
[2021-07-16] MEDS: Docusate Sodium 100 MG Cap PO SCH ×2 (07:32→17:04)
[2021-07-16] MEDS: Cholecalciferol (Vitamin D3) 25 MCG Tab PO SCH (07:32)
[2021-07-16] MEDS: Acetaminophen 500 MG Tab PO SCH ×3 (07:33→20:04)
[2021-07-16] MEDS: Ferrous Sulfate 325 MG Tab PO SCH (07:33)
[2021-07-16] MEDS: Calcium Carbonate 750 MG Tab.Chew PO SCH (07:33)
[2021-07-16] MEDS: Niacin 500 MG Tab PO SCH ×2 (07:33→17:03)
[2021-07-16] MEDS: Furosemide 20 MG Tab PO SCH ×2 (07:34→12:13)
[2021-07-16] MEDS: guaiFENesin/Dextromethorphan 100-10 MG/5 ML Soln 10 ML Cup PO PRN ×2 (07:35→20:04)
[2021-07-16] MEDS ORDERED: Loperamide 2 MG Tab PO PRN (14:00)
[2021-07-16] MEDS: BUPROPION 300 MG PO SCH (20:03)
[2021-07-16] MEDS: LEVOTHYROXINE 137 MCG PO SCH (20:03)
[2021-07-16] MEDS: Simvastatin 10 MG Tab PO SCH (20:04)
[2021-07-17] MEDS: Albuterol/Ipratropium 3.0-0.5 MG/3 ML Neb Soln NEB SCH ×2 (07:26→19:32)
[2021-07-17] MEDS: Docusate Sodium 100 MG Cap PO SCH ×2 (07:27→17:17)
[2021-07-17] MEDS: Furosemide 20 MG Tab PO SCH ×2 (07:27→11:26)
[2021-07-17] MEDS: Potassium Chloride 20 MEQ Tab.ER PO SCH ×4 (07:27→19:35)
[2021-07-17] MEDS: Citalopram 20 MG Tab PO SCH (07:27)
[2021-07-17] MEDS: Fludrocortisone 0.1 MG Tab PO SCH ×2 (07:27→19:34)
[2021-07-17] MEDS: Niacin 500 MG Tab PO SCH ×2 (07:28→17:17)
[2021-07-17] MEDS: Ferrous Sulfate 325 MG Tab PO SCH (07:28)
[2021-07-17] MEDS: Calcium Carbonate 750 MG Tab.Chew PO SCH (07:28)
[2021-07-17] MEDS: Cholecalciferol (Vitamin D3) 25 MCG Tab PO SCH (07:29)
[2021-07-17] MEDS: Acetaminophen 500 MG Tab PO SCH ×3 (07:29→19:33)
[2021-07-17] MEDS: Cyanocobalamin (Vitamin B12) 1,000 MCG Tab PO SCH (07:29)
[2021-07-17] MEDS: LEVOTHYROXINE 137 MCG PO SCH (19:36)
[2021-07-17] MEDS: BUPROPION 300 MG PO SCH (19:37)
[2021-07-17] MEDS: Simvastatin 10 MG Tab PO SCH (19:38)
[2021-07-17] MEDS: guaiFENesin/Dextromethorphan 100-10 MG/5 ML Soln 10 ML Cup PO PRN (19:39)
[2021-07-17] MEDS: Menthol 10%/Methyl Salicylate 30% 85 GM Tube TOP PRN (19:39)
[2021-07-18] MEDS: Albuterol/Ipratropium 3.0-0.5 MG/3 ML Neb Soln NEB SCH ×2 (07:26→19:20)
[2021-07-18] MEDS: Furosemide 20 MG Tab PO SCH ×2 (07:26→12:03)
[2021-07-18] MEDS: Potassium Chloride 20 MEQ Tab.ER PO SCH ×4 (07:27→19:21)
[2021-07-18] MEDS: Fludrocortisone 0.1 MG Tab PO SCH ×2 (07:27→19:21)
[2021-07-18] MEDS: Citalopram 20 MG Tab PO SCH (07:27)
[2021-07-18] MEDS: Docusate Sodium 100 MG Cap PO SCH ×2 (07:28→17:54)
[2021-07-18] MEDS: Ferrous Sulfate 325 MG Tab PO SCH (07:28)
[2021-07-18] MEDS: Niacin 500 MG Tab PO SCH ×2 (07:28→17:54)
[2021-07-18] MEDS: Calcium Carbonate 750 MG Tab.Chew PO SCH (07:29)
[2021-07-18] MEDS: Cyanocobalamin (Vitamin B12) 1,000 MCG Tab PO SCH (07:29)
[2021-07-18] MEDS: Acetaminophen 500 MG Tab PO SCH ×3 (07:29→19:22)
[2021-07-18] MEDS: Cholecalciferol (Vitamin D3) 25 MCG Tab PO SCH (07:30)
[2021-07-18] MEDS: LEVOTHYROXINE 137 MCG PO SCH (19:21)
[2021-07-18] MEDS: Simvastatin 10 MG Tab PO SCH (19:22)
[2021-07-18] MEDS: BUPROPION 300 MG PO SCH (19:22)
[2021-07-18] MEDS: Menthol 10%/Methyl Salicylate 30% 85 GM Tube TOP PRN (19:23)
[2021-07-18] MEDS: guaiFENesin/Dextromethorphan 100-10 MG/5 ML Soln 10 ML Cup PO PRN (19:23)
[2021-07-19] MEDS: Albuterol/Ipratropium 3.0-0.5 MG/3 ML Neb Soln NEB SCH ×2 (07:33→19:58)
[2021-07-19] MEDS: Potassium Chloride 20 MEQ Tab.ER PO SCH ×4 (07:36→20:02)
[2021-07-19] MEDS: Fludrocortisone 0.1 MG Tab PO SCH ×2 (07:36→20:01)
[2021-07-19] MEDS: Furosemide 20 MG Tab PO SCH ×2 (07:36→12:01)
[2021-07-19] MEDS: Citalopram 20 MG Tab PO SCH (07:36)
[2021-07-19] MEDS: Docusate Sodium 100 MG Cap PO SCH ×2 (07:37→17:46)
[2021-07-19] MEDS: Ferrous Sulfate 325 MG Tab PO SCH (07:38)
[2021-07-19] MEDS: Niacin 500 MG Tab PO SCH ×2 (07:38→17:46)
[2021-07-19] MEDS: Acetaminophen 500 MG Tab PO SCH ×3 (07:38→20:03)
[2021-07-19] MEDS: Calcium Carbonate 750 MG Tab.Chew PO SCH (07:38)
[2021-07-19] MEDS: Cholecalciferol (Vitamin D3) 25 MCG Tab PO SCH (07:39)
[2021-07-19] MEDS: Cyanocobalamin (Vitamin B12) 1,000 MCG Tab PO SCH (07:39)
[2021-07-19] MEDS: LEVOTHYROXINE 137 MCG PO SCH (20:02)
[2021-07-19] MEDS: BUPROPION 300 MG PO SCH (20:02)
[2021-07-19] MEDS: Menthol 10%/Methyl Salicylate 30% 85 GM Tube TOP PRN (20:04)
[2021-07-19] MEDS: Simvastatin 10 MG Tab PO SCH (20:04)
[2021-07-20] MEDS: Citalopram 20 MG Tab PO SCH (08:31)
[2021-07-20] MEDS: Furosemide 20 MG Tab PO SCH ×2 (08:31→12:00)
[2021-07-20] MEDS: Potassium Chloride 20 MEQ Tab.ER PO SCH ×4 (08:31→19:19)
[2021-07-20] MEDS: Fludrocortisone 0.1 MG Tab PO SCH ×2 (08:31→19:19)
[2021-07-20] MEDS: Calcium Carbonate 750 MG Tab.Chew PO SCH (08:33)
[2021-07-20] MEDS: Albuterol/Ipratropium 3.0-0.5 MG/3 ML Neb Soln NEB SCH ×2 (08:33→19:19)
[2021-07-20] MEDS: Ferrous Sulfate 325 MG Tab PO SCH (08:34)
[2021-07-20] MEDS: Docusate Sodium 100 MG Cap PO SCH ×2 (08:34→17:08)
[2021-07-20] MEDS: Niacin 500 MG Tab PO SCH ×2 (08:34→17:08)
[2021-07-20] MEDS: Cholecalciferol (Vitamin D3) 25 MCG Tab PO SCH (08:34)
[2021-07-20] MEDS: Cyanocobalamin (Vitamin B12) 1,000 MCG Tab PO SCH (08:35)
[2021-07-20] MEDS: Acetaminophen 500 MG Tab PO SCH ×3 (08:35→19:20)
[2021-07-20] MEDS: LEVOTHYROXINE 137 MCG PO SCH (19:19)
[2021-07-20] MEDS: Simvastatin 10 MG Tab PO SCH (19:20)
[2021-07-20] MEDS: BUPROPION 300 MG PO SCH (19:20)
[2021-07-21] MEDS: Furosemide 20 MG Tab PO SCH ×2 (08:06→12:20)
[2021-07-21] MEDS: Citalopram 20 MG Tab PO SCH (08:07)
[2021-07-21] MEDS: Potassium Chloride 20 MEQ Tab.ER PO SCH ×4 (08:07→19:09)
[2021-07-21] MEDS: Fludrocortisone 0.1 MG Tab PO SCH ×2 (08:07→19:09)
[2021-07-21] MEDS: Docusate Sodium 100 MG Cap PO SCH ×2 (08:08→18:19)
[2021-07-21] MEDS: Albuterol/Ipratropium 3.0-0.5 MG/3 ML Neb Soln NEB SCH ×2 (08:09→19:09)
[2021-07-21] MEDS: Ferrous Sulfate 325 MG Tab PO SCH (08:09)
[2021-07-21] MEDS: Niacin 500 MG Tab PO SCH ×2 (08:09→18:19)
[2021-07-21] MEDS: Calcium Carbonate 750 MG Tab.Chew PO SCH (08:10)
[2021-07-21] MEDS: Acetaminophen 500 MG Tab PO SCH ×3 (08:10→19:10)
[2021-07-21] MEDS: Cholecalciferol (Vitamin D3) 25 MCG Tab PO SCH (08:11)
[2021-07-21] MEDS: Cyanocobalamin (Vitamin B12) 1,000 MCG Tab PO SCH (08:11)
[2021-07-21] MEDS: LEVOTHYROXINE 137 MCG PO SCH (19:09)
[2021-07-21] MEDS: BUPROPION 300 MG PO SCH (19:10)
[2021-07-21] MEDS: Simvastatin 10 MG Tab PO SCH (19:10)
[2021-07-22] MEDS: Fludrocortisone 0.1 MG Tab PO SCH ×2 (08:07→19:02)
[2021-07-22] MEDS: Furosemide 20 MG Tab PO SCH ×2 (08:07→12:03)
[2021-07-22] MEDS: Citalopram 20 MG Tab PO SCH (08:08)
[2021-07-22] MEDS: Potassium Chloride 20 MEQ Tab.ER PO SCH ×4 (08:08→19:02)
[2021-07-22] MEDS: Acetaminophen 500 MG Tab PO SCH ×3 (08:09→19:07)
[2021-07-22] MEDS: Cholecalciferol (Vitamin D3) 25 MCG Tab PO SCH (08:09)
[2021-07-22] MEDS: Cyanocobalamin (Vitamin B12) 1,000 MCG Tab PO SCH (08:09)
[2021-07-22] MEDS: Calcium Carbonate 750 MG Tab.Chew PO SCH (08:10)
[2021-07-22] MEDS: Niacin 500 MG Tab PO SCH ×2 (08:10→17:18)
[2021-07-22] MEDS: Ferrous Sulfate 325 MG Tab PO SCH (08:11)
[2021-07-22] MEDS: Albuterol/Ipratropium 3.0-0.5 MG/3 ML Neb Soln NEB SCH ×2 (08:11→19:02)
[2021-07-22] MEDS: Docusate Sodium 100 MG Cap PO SCH ×2 (08:11→17:18)
[2021-07-22] MEDS: LEVOTHYROXINE 137 MCG PO SCH (19:02)
[2021-07-22] MEDS: BUPROPION 300 MG PO SCH (19:03)
[2021-07-22] MEDS: Simvastatin 10 MG Tab PO SCH (19:03)
[2021-07-23] MEDS: Albuterol/Ipratropium 3.0-0.5 MG/3 ML Neb Soln NEB SCH ×2 (07:19→19:35)
[2021-07-23] MEDS: Fludrocortisone 0.1 MG Tab PO SCH ×2 (08:14→19:38)
[2021-07-23] MEDS: Citalopram 20 MG Tab PO SCH (08:14)
[2021-07-23] MEDS: Furosemide 20 MG Tab PO SCH ×2 (08:14→12:05)
[2021-07-23] MEDS: Ferrous Sulfate 325 MG Tab PO SCH (08:15)
[2021-07-23] MEDS: Docusate Sodium 100 MG Cap PO SCH ×2 (08:15→17:35)
[2021-07-23] MEDS: Potassium Chloride 20 MEQ Tab.ER PO SCH ×4 (08:15→19:39)
[2021-07-23] MEDS: Calcium Carbonate 750 MG Tab.Chew PO SCH (08:16)
[2021-07-23] MEDS: Niacin 500 MG Tab PO SCH ×2 (08:16→17:35)
[2021-07-23] MEDS: Acetaminophen 500 MG Tab PO SCH ×3 (08:16→19:40)
[2021-07-23] MEDS: Cyanocobalamin (Vitamin B12) 1,000 MCG Tab PO SCH (08:17)
[2021-07-23] MEDS: Cholecalciferol (Vitamin D3) 25 MCG Tab PO SCH (08:17)
[2021-07-23] MEDS: LEVOTHYROXINE 137 MCG PO SCH (19:39)
[2021-07-23] MEDS: BUPROPION 300 MG PO SCH (19:39)
[2021-07-23] MEDS: Simvastatin 10 MG Tab PO SCH (19:41)
[2021-07-24] MEDS: Potassium Chloride 20 MEQ Tab.ER PO SCH ×4 (08:00→19:14)
[2021-07-24] MEDS: Citalopram 20 MG Tab PO SCH (08:01)
[2021-07-24] MEDS: Furosemide 20 MG Tab PO SCH ×2 (08:01→11:44)
[2021-07-24] MEDS: Fludrocortisone 0.1 MG Tab PO SCH ×2 (08:01→19:14)
[2021-07-24] MEDS: Albuterol/Ipratropium 3.0-0.5 MG/3 ML Neb Soln NEB SCH ×2 (08:02→19:15)
[2021-07-24] MEDS: Cyanocobalamin (Vitamin B12) 1,000 MCG Tab PO SCH (08:03)
[2021-07-24] MEDS: Cholecalciferol (Vitamin D3) 25 MCG Tab PO SCH (08:03)
[2021-07-24] MEDS: Calcium Carbonate 750 MG Tab.Chew PO SCH (08:03)
[2021-07-24] MEDS: Acetaminophen 500 MG Tab PO SCH ×3 (08:04→19:15)
[2021-07-24] MEDS: Niacin 500 MG Tab PO SCH ×2 (08:04→17:05)
[2021-07-24] MEDS: Ferrous Sulfate 325 MG Tab PO SCH (08:04)
[2021-07-24] MEDS: Docusate Sodium 100 MG Cap PO SCH ×2 (08:04→17:06)
[2021-07-24] MEDS: LEVOTHYROXINE 137 MCG PO SCH (19:14)
[2021-07-24] MEDS: BUPROPION 300 MG PO SCH (19:14)
[2021-07-24] MEDS: Simvastatin 10 MG Tab PO SCH (19:14)
[2021-07-25] MEDS: Albuterol/Ipratropium 3.0-0.5 MG/3 ML Neb Soln NEB SCH ×2 (07:34→19:46)
[2021-07-25] MEDS: Docusate Sodium 100 MG Cap PO SCH ×2 (07:35→17:13)
[2021-07-25] MEDS: Citalopram 20 MG Tab PO SCH (07:35)
[2021-07-25] MEDS: Fludrocortisone 0.1 MG Tab PO SCH ×2 (07:36→19:46)
[2021-07-25] MEDS: Potassium Chloride 20 MEQ Tab.ER PO SCH ×4 (07:36→19:47)
[2021-07-25] MEDS: Ferrous Sulfate 325 MG Tab PO SCH (07:36)
[2021-07-25] MEDS: Furosemide 20 MG Tab PO SCH ×2 (07:37→11:48)
[2021-07-25] MEDS: Niacin 500 MG Tab PO SCH ×2 (07:37→17:13)
[2021-07-25] MEDS: Calcium Carbonate 750 MG Tab.Chew PO SCH (07:38)
[2021-07-25] MEDS: Acetaminophen 500 MG Tab PO SCH ×3 (07:38→19:48)
[2021-07-25] MEDS: Cyanocobalamin (Vitamin B12) 1,000 MCG Tab PO SCH (07:39)
[2021-07-25] MEDS: Cholecalciferol (Vitamin D3) 25 MCG Tab PO SCH (07:40)
[2021-07-25] MEDS: Simvastatin 10 MG Tab PO SCH (19:47)
[2021-07-25] MEDS: LEVOTHYROXINE 137 MCG PO SCH (19:47)
[2021-07-25] MEDS: BUPROPION 300 MG PO SCH (19:47)
[2021-07-25] MEDS: Menthol 10%/Methyl Salicylate 30% 85 GM Tube TOP PRN (19:48)
[2021-07-26] MEDS: Potassium Chloride 20 MEQ Tab.ER PO SCH ×4 (07:57→19:45)
[2021-07-26] MEDS: Fludrocortisone 0.1 MG Tab PO SCH ×2 (07:57→19:45)
[2021-07-26] MEDS: Furosemide 20 MG Tab PO SCH ×2 (07:57→11:58)
[2021-07-26] MEDS: Citalopram 20 MG Tab PO SCH (07:58)
[2021-07-26] MEDS: Docusate Sodium 100 MG Cap PO SCH ×2 (07:58→17:36)
[2021-07-26] MEDS: Albuterol/Ipratropium 3.0-0.5 MG/3 ML Neb Soln NEB SCH ×2 (07:58→19:36)
[2021-07-26] MEDS: Ferrous Sulfate 325 MG Tab PO SCH (07:59)
[2021-07-26] MEDS: Niacin 500 MG Tab PO SCH ×2 (07:59→17:36)
[2021-07-26] MEDS: Calcium Carbonate 750 MG Tab.Chew PO SCH (08:00)
[2021-07-26] MEDS: Acetaminophen 500 MG Tab PO SCH ×3 (08:00→19:46)
[2021-07-26] MEDS: Cholecalciferol (Vitamin D3) 25 MCG Tab PO SCH (08:01)
[2021-07-26] MEDS: Cyanocobalamin (Vitamin B12) 1,000 MCG Tab PO SCH (08:01)
[2021-07-26] MEDS: BUPROPION 300 MG PO SCH (19:46)
[2021-07-26] MEDS: LEVOTHYROXINE 137 MCG PO SCH (19:46)
[2021-07-26] MEDS: Simvastatin 10 MG Tab PO SCH (19:47)
[2021-07-26] MEDS: Menthol 10%/Methyl Salicylate 30% 85 GM Tube TOP PRN (19:48)
[2021-07-27] MEDS: Furosemide 20 MG Tab PO SCH ×2 (08:01→11:43)
[2021-07-27] MEDS: Potassium Chloride 20 MEQ Tab.ER PO SCH ×4 (08:01→19:44)
[2021-07-27] MEDS: Citalopram 20 MG Tab PO SCH (08:01)
[2021-07-27] MEDS: Fludrocortisone 0.1 MG Tab PO SCH ×2 (08:01→19:44)
[2021-07-27] MEDS: Albuterol/Ipratropium 3.0-0.5 MG/3 ML Neb Soln NEB SCH ×2 (08:02→19:44)
[2021-07-27] MEDS: Niacin 500 MG Tab PO SCH ×2 (08:02→17:15)
[2021-07-27] MEDS: Docusate Sodium 100 MG Cap PO SCH ×2 (08:02→17:15)
[2021-07-27] MEDS: Calcium Carbonate 750 MG Tab.Chew PO SCH (08:03)
[2021-07-27] MEDS: Acetaminophen 500 MG Tab PO SCH ×3 (08:04→19:45)
[2021-07-27] MEDS: Cyanocobalamin (Vitamin B12) 1,000 MCG Tab PO SCH (08:04)
[2021-07-27] MEDS: Cholecalciferol (Vitamin D3) 25 MCG Tab PO SCH (08:04)
[2021-07-27] MEDS: BUPROPION 300 MG PO SCH (19:44)
[2021-07-27] MEDS: LEVOTHYROXINE 137 MCG PO SCH (19:44)
[2021-07-27] MEDS: Simvastatin 10 MG Tab PO SCH (19:45)
[2021-07-27] MEDS: Menthol 10%/Methyl Salicylate 30% 85 GM Tube TOP PRN (19:47)
[2021-07-28] MEDS: Potassium Chloride 20 MEQ Tab.ER PO SCH ×4 (08:11→19:52)
[2021-07-28] MEDS: Albuterol/Ipratropium 3.0-0.5 MG/3 ML Neb Soln NEB SCH ×2 (08:11→19:51)
[2021-07-28] MEDS: Fludrocortisone 0.1 MG Tab PO SCH ×2 (08:12→19:52)
[2021-07-28] MEDS: Furosemide 20 MG Tab PO SCH ×2 (08:12→11:15)
[2021-07-28] MEDS: Citalopram 20 MG Tab PO SCH (08:13)
[2021-07-28] MEDS: Acetaminophen 500 MG Tab PO SCH ×3 (08:14→19:53)
[2021-07-28] MEDS: Cholecalciferol (Vitamin D3) 25 MCG Tab PO SCH (08:14)
[2021-07-28] MEDS: Cyanocobalamin (Vitamin B12) 1,000 MCG Tab PO SCH (08:14)
[2021-07-28] MEDS: Calcium Carbonate 750 MG Tab.Chew PO SCH (08:14)
[2021-07-28] MEDS: Niacin 500 MG Tab PO SCH ×2 (08:15→17:08)
[2021-07-28] MEDS: Docusate Sodium 100 MG Cap PO SCH ×2 (08:15→17:08)
[2021-07-28] MEDS: LEVOTHYROXINE 137 MCG PO SCH (19:52)
[2021-07-28] MEDS: BUPROPION 300 MG PO SCH (19:52)
[2021-07-28] MEDS: Simvastatin 10 MG Tab PO SCH (19:52)
[2021-07-28] MEDS: Menthol 10%/Methyl Salicylate 30% 85 GM Tube TOP PRN (19:53)
[2021-07-29] MEDS: Calcium Carbonate 750 MG Tab.Chew PO SCH (07:53)
[2021-07-29] MEDS: Fludrocortisone 0.1 MG Tab PO SCH ×2 (07:54→19:48)
[2021-07-29] MEDS: Potassium Chloride 20 MEQ Tab.ER PO SCH ×4 (07:54→19:49)
[2021-07-29] MEDS: Furosemide 20 MG Tab PO SCH ×2 (07:54→11:18)
[2021-07-29] MEDS: Acetaminophen 500 MG Tab PO SCH ×3 (07:55→19:50)
[2021-07-29] MEDS: Citalopram 20 MG Tab PO SCH (07:55)
[2021-07-29] MEDS: Cyanocobalamin (Vitamin B12) 1,000 MCG Tab PO SCH (07:56)
[2021-07-29] MEDS: Cholecalciferol (Vitamin D3) 25 MCG Tab PO SCH (07:56)
[2021-07-29] MEDS: Niacin 500 MG Tab PO SCH ×2 (07:56→17:15)
[2021-07-29] MEDS: Albuterol/Ipratropium 3.0-0.5 MG/3 ML Neb Soln NEB SCH ×2 (07:57→19:49)
[2021-07-29] MEDS: Docusate Sodium 100 MG Cap PO SCH ×2 (07:57→17:15)
[2021-07-29] MEDS: LEVOTHYROXINE 137 MCG PO SCH (19:49)
[2021-07-29] MEDS: BUPROPION 300 MG PO SCH (19:49)
[2021-07-29] MEDS: Simvastatin 10 MG Tab PO SCH (19:49)
[2021-07-29] MEDS: Menthol 10%/Methyl Salicylate 30% 85 GM Tube TOP PRN (19:52)
[2021-07-30] MEDS: Citalopram 20 MG Tab PO SCH (07:46)
[2021-07-30] MEDS: Docusate Sodium 100 MG Cap PO SCH ×2 (07:46→17:53)
[2021-07-30] MEDS: Fludrocortisone 0.1 MG Tab PO SCH ×2 (07:47→19:41)
[2021-07-30] MEDS: Albuterol/Ipratropium 3.0-0.5 MG/3 ML Neb Soln NEB SCH ×2 (07:47→19:34)
[2021-07-30] MEDS: Furosemide 20 MG Tab PO SCH ×2 (07:48→12:11)
[2021-07-30] MEDS: Potassium Chloride 20 MEQ Tab.ER PO SCH ×4 (07:48→19:41)
[2021-07-30] MEDS: Niacin 500 MG Tab PO SCH ×2 (07:49→17:53)
[2021-07-30] MEDS: Calcium Carbonate 750 MG Tab.Chew PO SCH (07:49)
[2021-07-30] MEDS: Acetaminophen 500 MG Tab PO SCH ×3 (07:50→19:42)
[2021-07-30] MEDS: Cholecalciferol (Vitamin D3) 25 MCG Tab PO SCH (07:51)
[2021-07-30] MEDS: Cyanocobalamin (Vitamin B12) 1,000 MCG Tab PO SCH (07:51)
[2021-07-30] MEDS: LEVOTHYROXINE 137 MCG PO SCH (19:41)
[2021-07-30] MEDS: BUPROPION 300 MG PO SCH (19:41)
[2021-07-30] MEDS: Simvastatin 10 MG Tab PO SCH (19:42)
[2021-07-31] MEDS: Albuterol/Ipratropium 3.0-0.5 MG/3 ML Neb Soln NEB SCH ×2 (07:25→20:03)
[2021-07-31] MEDS: Citalopram 20 MG Tab PO SCH (07:29)
[2021-07-31] MEDS: Fludrocortisone 0.1 MG Tab PO SCH ×2 (07:29→20:04)
[2021-07-31] MEDS: Furosemide 20 MG Tab PO SCH ×2 (07:29→12:10)
[2021-07-31] MEDS: Potassium Chloride 20 MEQ Tab.ER PO SCH ×4 (07:29→20:04)
[2021-07-31] MEDS: Acetaminophen 500 MG Tab PO SCH ×3 (07:30→20:05)
[2021-07-31] MEDS: Niacin 500 MG Tab PO SCH ×2 (07:30→17:31)
[2021-07-31] MEDS: Calcium Carbonate 750 MG Tab.Chew PO SCH (07:30)
[2021-07-31] MEDS: Docusate Sodium 100 MG Cap PO SCH ×2 (07:30→17:31)
[2021-07-31] MEDS: Cyanocobalamin (Vitamin B12) 1,000 MCG Tab PO SCH (07:31)
[2021-07-31] MEDS: Cholecalciferol (Vitamin D3) 25 MCG Tab PO SCH (07:31)
[2021-07-31] MEDS: Simvastatin 10 MG Tab PO SCH (20:04)
[2021-07-31] MEDS: BUPROPION 300 MG PO SCH (20:04)
[2021-07-31] MEDS: LEVOTHYROXINE 137 MCG PO SCH (20:04)
[2021-07-31] MEDS: Menthol 10%/Methyl Salicylate 30% 85 GM Tube TOP PRN (20:05)
[2021-08-01] MEDS: Fludrocortisone 0.1 MG Tab PO SCH ×2 (08:12→19:49)
[2021-08-01] MEDS: Citalopram 20 MG Tab PO SCH (08:12)
[2021-08-01] MEDS: Potassium Chloride 20 MEQ Tab.ER PO SCH ×4 (08:12→19:49)
[2021-08-01] MEDS: Furosemide 20 MG Tab PO SCH ×2 (08:12→12:07)
[2021-08-01] MEDS: Docusate Sodium 100 MG Cap PO SCH ×2 (08:13→17:01)
[2021-08-01] MEDS: Albuterol/Ipratropium 3.0-0.5 MG/3 ML Neb Soln NEB SCH ×2 (08:14→19:48)
[2021-08-01] MEDS: Niacin 500 MG Tab PO SCH ×2 (08:14→17:02)
[2021-08-01] MEDS: Cyanocobalamin (Vitamin B12) 1,000 MCG Tab PO SCH (08:15)
[2021-08-01] MEDS: Calcium Carbonate 750 MG Tab.Chew PO SCH (08:15)
[2021-08-01] MEDS: Acetaminophen 500 MG Tab PO SCH ×3 (08:15→19:50)
[2021-08-01] MEDS: Cholecalciferol (Vitamin D3) 25 MCG Tab PO SCH (08:16)
[2021-08-01] MEDS: LEVOTHYROXINE 137 MCG PO SCH (19:49)
[2021-08-01] MEDS: BUPROPION 300 MG PO SCH (19:50)
[2021-08-01] MEDS: Simvastatin 10 MG Tab PO SCH (19:50)
[2021-08-02] MEDS: Furosemide 20 MG Tab PO SCH ×2 (07:57→11:59)
[2021-08-02] MEDS: Docusate Sodium 100 MG Cap PO SCH ×2 (07:58→17:43)
[2021-08-02] MEDS: Citalopram 20 MG Tab PO SCH (07:58)
[2021-08-02] MEDS: Fludrocortisone 0.1 MG Tab PO SCH ×2 (07:58→19:42)
[2021-08-02] MEDS: Potassium Chloride 20 MEQ Tab.ER PO SCH ×4 (07:58→19:42)
[2021-08-02] MEDS: Acetaminophen 500 MG Tab PO SCH ×3 (07:59→19:43)
[2021-08-02] MEDS: Calcium Carbonate 750 MG Tab.Chew PO SCH (07:59)
[2021-08-02] MEDS: Albuterol/Ipratropium 3.0-0.5 MG/3 ML Neb Soln NEB SCH ×2 (07:59→19:42)
[2021-08-02] MEDS: Niacin 500 MG Tab PO SCH ×2 (07:59→17:43)
[2021-08-02] MEDS: Cholecalciferol (Vitamin D3) 25 MCG Tab PO SCH (08:00)
[2021-08-02] MEDS: Cyanocobalamin (Vitamin B12) 1,000 MCG Tab PO SCH (08:00)
[2021-08-02] MEDS: LEVOTHYROXINE 137 MCG PO SCH (19:43)
[2021-08-02] MEDS: Simvastatin 10 MG Tab PO SCH (19:43)
[2021-08-02] MEDS: BUPROPION 300 MG PO SCH (19:43)
[2021-08-03] MEDS: Docusate Sodium 100 MG Cap PO SCH ×2 (07:49→17:05)
[2021-08-03] MEDS: Calcium Carbonate 750 MG Tab.Chew PO SCH (07:49)
[2021-08-03] MEDS: Cholecalciferol (Vitamin D3) 25 MCG Tab PO SCH (07:49)
[2021-08-03] MEDS: Niacin 500 MG Tab PO SCH ×2 (07:49→17:05)
[2021-08-03] MEDS: Albuterol/Ipratropium 3.0-0.5 MG/3 ML Neb Soln NEB SCH ×2 (07:50→19:45)
[2021-08-03] MEDS: Cyanocobalamin (Vitamin B12) 1,000 MCG Tab PO SCH (07:50)
[2021-08-03] MEDS: Acetaminophen 500 MG Tab PO SCH ×3 (07:50→19:50)
[2021-08-03] MEDS: Potassium Chloride 20 MEQ Tab.ER PO SCH ×4 (07:51→19:49)
[2021-08-03] MEDS: Furosemide 20 MG Tab PO SCH ×2 (07:51→11:53)
[2021-08-03] MEDS: Fludrocortisone 0.1 MG Tab PO SCH ×2 (07:52→19:48)
[2021-08-03] MEDS: Citalopram 20 MG Tab PO SCH (07:52)
[2021-08-03] MEDS: LEVOTHYROXINE 137 MCG PO SCH (19:49)
[2021-08-03] MEDS: BUPROPION 300 MG PO SCH (19:49)
[2021-08-03] MEDS: Simvastatin 10 MG Tab PO SCH (19:51)
[2021-08-04] MEDS: Furosemide 20 MG Tab PO SCH ×2 (07:54→11:47)
[2021-08-04] MEDS: Potassium Chloride 20 MEQ Tab.ER PO SCH ×4 (07:55→19:43)
[2021-08-04] MEDS: Fludrocortisone 0.1 MG Tab PO SCH ×2 (07:56→19:43)
[2021-08-04] MEDS: Citalopram 20 MG Tab PO SCH (07:56)
[2021-08-04] MEDS: Docusate Sodium 100 MG Cap PO SCH ×2 (07:57→17:29)
[2021-08-04] MEDS: Albuterol/Ipratropium 3.0-0.5 MG/3 ML Neb Soln NEB SCH ×2 (07:58→19:39)
[2021-08-04] MEDS: Calcium Carbonate 750 MG Tab.Chew PO SCH (07:59)
[2021-08-04] MEDS: Acetaminophen 500 MG Tab PO SCH ×3 (07:59→19:44)
[2021-08-04] MEDS: Niacin 500 MG Tab PO SCH ×2 (07:59→17:29)
[2021-08-04] MEDS: Cholecalciferol (Vitamin D3) 25 MCG Tab PO SCH (08:01)
[2021-08-04] MEDS: Cyanocobalamin (Vitamin B12) 1,000 MCG Tab PO SCH (08:01)
[2021-08-04] MEDS: LEVOTHYROXINE 137 MCG PO SCH (19:44)
[2021-08-04] MEDS: BUPROPION 300 MG PO SCH (19:44)
[2021-08-04] MEDS: Simvastatin 10 MG Tab PO SCH (19:46)
[2021-08-05] MEDS: Albuterol/Ipratropium 3.0-0.5 MG/3 ML Neb Soln NEB SCH ×2 (07:15→19:33)
[2021-08-05] MEDS: Fludrocortisone 0.1 MG Tab PO SCH ×2 (07:17→19:36)
[2021-08-05] MEDS: Furosemide 20 MG Tab PO SCH ×2 (07:17→11:53)
[2021-08-05] MEDS: Potassium Chloride 20 MEQ Tab.ER PO SCH ×4 (07:17→19:36)
[2021-08-05] MEDS: Docusate Sodium 100 MG Cap PO SCH ×2 (07:17→17:31)
[2021-08-05] MEDS: Citalopram 20 MG Tab PO SCH (07:17)
[2021-08-05] MEDS: Calcium Carbonate 750 MG Tab.Chew PO SCH (07:18)
[2021-08-05] MEDS: Niacin 500 MG Tab PO SCH ×2 (07:18→17:31)
[2021-08-05] MEDS: Acetaminophen 500 MG Tab PO SCH ×3 (07:18→19:37)
[2021-08-05] MEDS: Cholecalciferol (Vitamin D3) 25 MCG Tab PO SCH (07:19)
[2021-08-05] MEDS: Cyanocobalamin (Vitamin B12) 1,000 MCG Tab PO SCH (07:19)
[2021-08-05] MEDS: LEVOTHYROXINE 137 MCG PO SCH (19:36)
[2021-08-05] MEDS: BUPROPION 300 MG PO SCH (19:37)
[2021-08-05] MEDS: Simvastatin 10 MG Tab PO SCH (19:38)
[2021-08-06] MEDS: Citalopram 20 MG Tab PO SCH (08:06)
[2021-08-06] MEDS: Docusate Sodium 100 MG Cap PO SCH ×2 (08:07→17:48)
[2021-08-06] MEDS: Potassium Chloride 20 MEQ Tab.ER PO SCH ×4 (08:07→19:44)
[2021-08-06] MEDS: Albuterol/Ipratropium 3.0-0.5 MG/3 ML Neb Soln NEB SCH ×2 (08:07→19:44)
[2021-08-06] MEDS: Fludrocortisone 0.1 MG Tab PO SCH ×2 (08:07→19:44)
[2021-08-06] MEDS: Furosemide 20 MG Tab PO SCH ×2 (08:08→12:09)
[2021-08-06] MEDS: Niacin 500 MG Tab PO SCH ×2 (08:09→17:48)
[2021-08-06] MEDS: Calcium Carbonate 750 MG Tab.Chew PO SCH (08:09)
[2021-08-06] MEDS: Cyanocobalamin (Vitamin B12) 1,000 MCG Tab PO SCH (08:10)
[2021-08-06] MEDS: Acetaminophen 500 MG Tab PO SCH ×3 (08:10→19:45)
[2021-08-06] MEDS: Cholecalciferol (Vitamin D3) 25 MCG Tab PO SCH (08:10)
[2021-08-06] MEDS: Simvastatin 10 MG Tab PO SCH (19:45)
[2021-08-06] MEDS: BUPROPION 300 MG PO SCH (19:45)
[2021-08-06] MEDS: LEVOTHYROXINE 137 MCG PO SCH (19:45)
[2021-08-06] MEDS: Menthol 10%/Methyl Salicylate 30% 85 GM Tube TOP PRN (19:46)
[2021-08-07] MEDS: Citalopram 20 MG Tab PO SCH (07:27)
[2021-08-07] MEDS: Furosemide 20 MG Tab PO SCH ×2 (07:27→12:09)
[2021-08-07] MEDS: Fludrocortisone 0.1 MG Tab PO SCH ×2 (07:27→19:23)
[2021-08-07] MEDS: Potassium Chloride 20 MEQ Tab.ER PO SCH ×4 (07:27→19:23)
[2021-08-07] MEDS: Niacin 500 MG Tab PO SCH ×2 (07:28→17:38)
[2021-08-07] MEDS: Calcium Carbonate 750 MG Tab.Chew PO SCH (07:29)
[2021-08-07] MEDS: Acetaminophen 500 MG Tab PO SCH ×3 (07:29→19:24)
[2021-08-07] MEDS: Cholecalciferol (Vitamin D3) 25 MCG Tab PO SCH (07:30)
[2021-08-07] MEDS: Cyanocobalamin (Vitamin B12) 1,000 MCG Tab PO SCH (07:30)
[2021-08-07] MEDS: Albuterol/Ipratropium 3.0-0.5 MG/3 ML Neb Soln NEB SCH ×2 (07:32→19:22)
[2021-08-07] MEDS: Docusate Sodium 100 MG Cap PO SCH ×2 (07:32→17:38)
[2021-08-07] MEDS: Simvastatin 10 MG Tab PO SCH (19:23)
[2021-08-07] MEDS: LEVOTHYROXINE 137 MCG PO SCH (19:23)
[2021-08-07] MEDS: BUPROPION 300 MG PO SCH (19:23)
[2021-08-08] MEDS: Furosemide 20 MG Tab PO SCH ×2 (08:38→12:17)
[2021-08-08] MEDS: Potassium Chloride 20 MEQ Tab.ER PO SCH ×4 (08:39→19:38)
[2021-08-08] MEDS: Fludrocortisone 0.1 MG Tab PO SCH ×2 (08:39→19:38)
[2021-08-08] MEDS: Albuterol/Ipratropium 3.0-0.5 MG/3 ML Neb Soln NEB SCH ×2 (08:40→19:38)
[2021-08-08] MEDS: Citalopram 20 MG Tab PO SCH (08:40)
[2021-08-08] MEDS: Docusate Sodium 100 MG Cap PO SCH ×2 (08:40→17:56)
[2021-08-08] MEDS: Acetaminophen 500 MG Tab PO SCH ×3 (08:41→19:39)
[2021-08-08] MEDS: Calcium Carbonate 750 MG Tab.Chew PO SCH (08:41)
[2021-08-08] MEDS: Niacin 500 MG Tab PO SCH ×2 (08:41→17:56)
[2021-08-08] MEDS: Cholecalciferol (Vitamin D3) 25 MCG Tab PO SCH (08:42)
[2021-08-08] MEDS: Cyanocobalamin (Vitamin B12) 1,000 MCG Tab PO SCH (08:42)
[2021-08-08] MEDS: BUPROPION 300 MG PO SCH (19:39)
[2021-08-08] MEDS: Simvastatin 10 MG Tab PO SCH (19:39)
[2021-08-08] MEDS: LEVOTHYROXINE 137 MCG PO SCH (19:39)
[2021-08-08] MEDS: Menthol 10%/Methyl Salicylate 30% 85 GM Tube TOP PRN (19:40)
[2021-08-09] MEDS: Menthol 10%/Methyl Salicylate 30% 85 GM Tube TOP PRN (03:02)
[2021-08-09] MEDS: Albuterol/Ipratropium 3.0-0.5 MG/3 ML Neb Soln NEB SCH ×2 (08:15→19:49)
[2021-08-09] MEDS: Potassium Chloride 20 MEQ Tab.ER PO SCH ×4 (08:16→19:52)
[2021-08-09] MEDS: Furosemide 20 MG Tab PO SCH ×2 (08:17→11:23)
[2021-08-09] MEDS: Citalopram 20 MG Tab PO SCH (08:17)
[2021-08-09] MEDS: Fludrocortisone 0.1 MG Tab PO SCH ×2 (08:17→19:51)
[2021-08-09] MEDS: Docusate Sodium 100 MG Cap PO SCH ×2 (08:18→17:00)
[2021-08-09] MEDS: Niacin 500 MG Tab PO SCH ×2 (08:18→17:00)
[2021-08-09] MEDS: Calcium Carbonate 750 MG Tab.Chew PO SCH (08:19)
[2021-08-09] MEDS: Acetaminophen 500 MG Tab PO SCH ×3 (08:19→19:53)
[2021-08-09] MEDS: Cholecalciferol (Vitamin D3) 25 MCG Tab PO SCH (08:20)
[2021-08-09] MEDS: Cyanocobalamin (Vitamin B12) 1,000 MCG Tab PO SCH (08:20)
[2021-08-09] MEDS: LEVOTHYROXINE 137 MCG PO SCH (19:52)
[2021-08-09] MEDS: BUPROPION 300 MG PO SCH (19:53)
[2021-08-09] MEDS: Simvastatin 10 MG Tab PO SCH (19:54)
[2021-08-10] MEDS: Citalopram 20 MG Tab PO SCH (07:54)
[2021-08-10] MEDS: Docusate Sodium 100 MG Cap PO SCH ×2 (07:54→17:16)
[2021-08-10] MEDS: Albuterol/Ipratropium 3.0-0.5 MG/3 ML Neb Soln NEB SCH ×2 (07:54→19:22)
[2021-08-10] MEDS: Potassium Chloride 20 MEQ Tab.ER PO SCH ×4 (07:55→19:23)
[2021-08-10] MEDS: Niacin 500 MG Tab PO SCH ×2 (07:55→17:17)
[2021-08-10] MEDS: Fludrocortisone 0.1 MG Tab PO SCH ×2 (07:55→19:23)
[2021-08-10] MEDS: Furosemide 20 MG Tab PO SCH ×2 (07:55→11:09)
[2021-08-10] MEDS: Calcium Carbonate 750 MG Tab.Chew PO SCH (07:56)
[2021-08-10] MEDS: Cyanocobalamin (Vitamin B12) 1,000 MCG Tab PO SCH (07:56)
[2021-08-10] MEDS: Acetaminophen 500 MG Tab PO SCH ×3 (07:56→19:25)
[2021-08-10] MEDS: Cholecalciferol (Vitamin D3) 25 MCG Tab PO SCH (07:57)
[2021-08-10] MEDS: traMADol 50 MG Tab PO PRN (11:11)
[2021-08-10] MEDS: BUPROPION 300 MG PO SCH (19:24)
[2021-08-10] MEDS: LEVOTHYROXINE 137 MCG PO SCH (19:24)
[2021-08-10] MEDS: Simvastatin 10 MG Tab PO SCH (19:26)
[2021-08-11] MEDS: Citalopram 20 MG Tab PO SCH (07:28)
[2021-08-11] MEDS: Potassium Chloride 20 MEQ Tab.ER PO SCH ×4 (07:28→19:15)
[2021-08-11] MEDS: Furosemide 20 MG Tab PO SCH ×2 (07:28→11:49)
[2021-08-11] MEDS: Fludrocortisone 0.1 MG Tab PO SCH ×2 (07:28→19:15)
[2021-08-11] MEDS: Docusate Sodium 100 MG Cap PO SCH ×2 (07:30→17:35)
[2021-08-11] MEDS: Albuterol/Ipratropium 3.0-0.5 MG/3 ML Neb Soln NEB SCH ×2 (07:30→19:15)
[2021-08-11] MEDS: Bisacodyl 5 MG Tab PO PRN (07:30)
[2021-08-11] MEDS: Acetaminophen 500 MG Tab PO SCH ×3 (07:31→19:16)
[2021-08-11] MEDS: Niacin 500 MG Tab PO SCH ×2 (07:31→17:35)
[2021-08-11] MEDS: Calcium Carbonate 750 MG Tab.Chew PO SCH (07:31)
[2021-08-11] MEDS: Cholecalciferol (Vitamin D3) 25 MCG Tab PO SCH (07:32)
[2021-08-11] MEDS: Cyanocobalamin (Vitamin B12) 1,000 MCG Tab PO SCH (07:32)
[2021-08-11] MEDS: Simvastatin 10 MG Tab PO SCH (19:15)
[2021-08-11] MEDS: LEVOTHYROXINE 137 MCG PO SCH (19:15)
[2021-08-11] MEDS: BUPROPION 300 MG PO SCH (19:16)
[2021-08-12] MEDS: Potassium Chloride 20 MEQ Tab.ER PO SCH ×4 (08:04→19:26)
[2021-08-12] MEDS: Furosemide 20 MG Tab PO SCH ×2 (08:05→11:42)
[2021-08-12] MEDS: Citalopram 20 MG Tab PO SCH (08:05)
[2021-08-12] MEDS: Fludrocortisone 0.1 MG Tab PO SCH ×2 (08:05→19:26)
[2021-08-12] MEDS: Docusate Sodium 100 MG Cap PO SCH ×2 (08:06→17:07)
[2021-08-12] MEDS: Albuterol/Ipratropium 3.0-0.5 MG/3 ML Neb Soln NEB SCH ×2 (08:06→19:34)
[2021-08-12] MEDS: Calcium Carbonate 750 MG Tab.Chew PO SCH (08:07)
[2021-08-12] MEDS: Niacin 500 MG Tab PO SCH ×2 (08:07→17:07)
[2021-08-12] MEDS: Cholecalciferol (Vitamin D3) 25 MCG Tab PO SCH (08:07)
[2021-08-12] MEDS: Acetaminophen 500 MG Tab PO SCH ×3 (08:08→19:27)
[2021-08-12] MEDS: Cyanocobalamin (Vitamin B12) 1,000 MCG Tab PO SCH (08:08)
[2021-08-12] MEDS: traMADol 50 MG Tab PO PRN (15:08)
[2021-08-12] MEDS: LEVOTHYROXINE 137 MCG PO SCH (19:27)
[2021-08-12] MEDS: BUPROPION 300 MG PO SCH (19:27)
[2021-08-12] MEDS: Simvastatin 10 MG Tab PO SCH (19:27)
[2021-08-13] MEDS: Fludrocortisone 0.1 MG Tab PO SCH ×2 (08:18→19:51)
[2021-08-13] MEDS: Citalopram 20 MG Tab PO SCH (08:19)
[2021-08-13] MEDS: Potassium Chloride 20 MEQ Tab.ER PO SCH ×4 (08:19→19:51)
[2021-08-13] MEDS: Furosemide 20 MG Tab PO SCH ×2 (08:19→11:32)
[2021-08-13] MEDS: Niacin 500 MG Tab PO SCH ×2 (08:20→17:03)
[2021-08-13] MEDS: Albuterol/Ipratropium 3.0-0.5 MG/3 ML Neb Soln NEB SCH ×2 (08:20→19:47)
[2021-08-13] MEDS: Docusate Sodium 100 MG Cap PO SCH ×2 (08:20→17:03)
[2021-08-13] MEDS: Calcium Carbonate 750 MG Tab.Chew PO SCH (08:21)
[2021-08-13] MEDS: Cyanocobalamin (Vitamin B12) 1,000 MCG Tab PO SCH (08:21)
[2021-08-13] MEDS: Acetaminophen 500 MG Tab PO SCH ×3 (08:21→19:52)
[2021-08-13] MEDS: Cholecalciferol (Vitamin D3) 25 MCG Tab PO SCH (08:22)
[2021-08-13] MEDS: LEVOTHYROXINE 137 MCG PO SCH (19:51)
[2021-08-13] MEDS: BUPROPION 300 MG PO SCH (19:52)
[2021-08-13] MEDS: Simvastatin 10 MG Tab PO SCH (19:53)
[2021-08-13] MEDS: Menthol 10%/Methyl Salicylate 30% 85 GM Tube TOP PRN (19:54)
[2021-08-14] MEDS: Docusate Sodium 100 MG Cap PO SCH ×2 (07:22→17:11)
[2021-08-14] MEDS: Citalopram 20 MG Tab PO SCH (07:22)
[2021-08-14] MEDS: Albuterol/Ipratropium 3.0-0.5 MG/3 ML Neb Soln NEB SCH ×2 (07:22→19:26)
[2021-08-14] MEDS: Fludrocortisone 0.1 MG Tab PO SCH ×2 (07:23→19:27)
[2021-08-14] MEDS: Furosemide 20 MG Tab PO SCH ×2 (07:23→11:18)
[2021-08-14] MEDS: Potassium Chloride 20 MEQ Tab.ER PO SCH ×4 (07:23→19:27)
[2021-08-14] MEDS: Calcium Carbonate 750 MG Tab.Chew PO SCH (07:24)
[2021-08-14] MEDS: Acetaminophen 500 MG Tab PO SCH ×3 (07:24→19:28)
[2021-08-14] MEDS: Niacin 500 MG Tab PO SCH ×2 (07:24→17:11)
[2021-08-14] MEDS: Cholecalciferol (Vitamin D3) 25 MCG Tab PO SCH (07:25)
[2021-08-14] MEDS: Cyanocobalamin (Vitamin B12) 1,000 MCG Tab PO SCH (07:25)
[2021-08-14] MEDS: traMADol 50 MG Tab PO PRN (11:19)
[2021-08-14] MEDS: Simvastatin 10 MG Tab PO SCH (19:27)
[2021-08-14] MEDS: BUPROPION 300 MG PO SCH (19:27)
[2021-08-14] MEDS: LEVOTHYROXINE 137 MCG PO SCH (19:27)
[2021-08-14] MEDS: Menthol 10%/Methyl Salicylate 30% 85 GM Tube TOP PRN (19:29)
[2021-08-15] MEDS: Docusate Sodium 100 MG Cap PO SCH ×2 (07:17→17:05)
[2021-08-15] MEDS: Albuterol/Ipratropium 3.0-0.5 MG/3 ML Neb Soln NEB SCH ×2 (07:17→19:16)
[2021-08-15] MEDS: Citalopram 20 MG Tab PO SCH (07:17)
[2021-08-15] MEDS: Fludrocortisone 0.1 MG Tab PO SCH ×2 (07:18→19:16)
[2021-08-15] MEDS: Potassium Chloride 20 MEQ Tab.ER PO SCH ×4 (07:18→19:16)
[2021-08-15] MEDS: Furosemide 20 MG Tab PO SCH ×2 (07:18→11:32)
[2021-08-15] MEDS: Acetaminophen 500 MG Tab PO SCH ×3 (07:19→19:18)
[2021-08-15] MEDS: Calcium Carbonate 750 MG Tab.Chew PO SCH (07:19)
[2021-08-15] MEDS: Niacin 500 MG Tab PO SCH ×2 (07:19→17:06)
[2021-08-15] MEDS: Cyanocobalamin (Vitamin B12) 1,000 MCG Tab PO SCH (07:20)
[2021-08-15] MEDS: Cholecalciferol (Vitamin D3) 25 MCG Tab PO SCH (07:21)
[2021-08-15] MEDS: traMADol 50 MG Tab PO PRN (11:33)
[2021-08-15] MEDS: BUPROPION 300 MG PO SCH (19:17)
[2021-08-15] MEDS: Simvastatin 10 MG Tab PO SCH (19:17)
[2021-08-15] MEDS: LEVOTHYROXINE 137 MCG PO SCH (19:17)
[2021-08-16] MEDS: Citalopram 20 MG Tab PO SCH (07:28)
[2021-08-16] MEDS: Albuterol/Ipratropium 3.0-0.5 MG/3 ML Neb Soln NEB SCH ×2 (07:28→20:05)
[2021-08-16] MEDS: Docusate Sodium 100 MG Cap PO SCH ×2 (07:28→17:13)
[2021-08-16] MEDS: Fludrocortisone 0.1 MG Tab PO SCH ×2 (07:29→22:14)
[2021-08-16] MEDS: Furosemide 20 MG Tab PO SCH ×2 (07:29→11:23)
[2021-08-16] MEDS: Potassium Chloride 20 MEQ Tab.ER PO SCH ×4 (07:29→20:09)
[2021-08-16] MEDS: Calcium Carbonate 750 MG Tab.Chew PO SCH (07:30)
[2021-08-16] MEDS: Niacin 500 MG Tab PO SCH ×2 (07:30→17:14)
[2021-08-16] MEDS: Acetaminophen 500 MG Tab PO SCH ×3 (07:30→20:10)
[2021-08-16] MEDS: Cholecalciferol (Vitamin D3) 25 MCG Tab PO SCH (07:31)
[2021-08-16] MEDS: Cyanocobalamin (Vitamin B12) 1,000 MCG Tab PO SCH (07:31)
[2021-08-16] MEDS: traMADol 50 MG Tab PO PRN (11:22)
[2021-08-16] MEDS: LEVOTHYROXINE 137 MCG PO SCH (20:09)
[2021-08-16] MEDS: BUPROPION 300 MG PO SCH (20:09)
[2021-08-16] MEDS: Simvastatin 10 MG Tab PO SCH (20:11)
[2021-08-17] MEDS: Fludrocortisone 0.1 MG Tab PO SCH ×2 (08:28→19:48)
[2021-08-17] MEDS: Potassium Chloride 20 MEQ Tab.ER PO SCH ×4 (08:28→19:49)
[2021-08-17] MEDS: Citalopram 20 MG Tab PO SCH (08:28)
[2021-08-17] MEDS: Furosemide 20 MG Tab PO SCH ×2 (08:29→11:31)
[2021-08-17] MEDS: Albuterol/Ipratropium 3.0-0.5 MG/3 ML Neb Soln NEB SCH ×2 (08:29→19:48)
[2021-08-17] MEDS: Niacin 500 MG Tab PO SCH ×2 (08:30→17:07)
[2021-08-17] MEDS: Docusate Sodium 100 MG Cap PO SCH ×2 (08:30→17:07)
[2021-08-17] MEDS: Cholecalciferol (Vitamin D3) 25 MCG Tab PO SCH (08:31)
[2021-08-17] MEDS: Calcium Carbonate 750 MG Tab.Chew PO SCH (08:31)
[2021-08-17] MEDS: Acetaminophen 500 MG Tab PO SCH ×3 (08:31→19:50)
[2021-08-17] MEDS: Cyanocobalamin (Vitamin B12) 1,000 MCG Tab PO SCH (08:32)
[2021-08-17] MEDS: BUPROPION 300 MG PO SCH (19:49)
[2021-08-17] MEDS: LEVOTHYROXINE 137 MCG PO SCH (19:49)
[2021-08-17] MEDS: Simvastatin 10 MG Tab PO SCH (19:49)
[2021-08-17] MEDS: Menthol 10%/Methyl Salicylate 30% 85 GM Tube TOP PRN (19:51)
[2021-08-17] MEDS: guaiFENesin/Dextromethorphan 100-10 MG/5 ML Soln 10 ML Cup PO PRN (20:03)
[2021-08-18] MEDS: Niacin 500 MG Tab PO SCH ×2 (07:15→17:02)
[2021-08-18] MEDS: Albuterol/Ipratropium 3.0-0.5 MG/3 ML Neb Soln NEB SCH ×2 (07:15→19:20)
[2021-08-18] MEDS: Acetaminophen 500 MG Tab PO SCH ×3 (07:15→19:21)
[2021-08-18] MEDS: Calcium Carbonate 750 MG Tab.Chew PO SCH (07:15)
[2021-08-18] MEDS: Citalopram 20 MG Tab PO SCH (07:16)
[2021-08-18] MEDS: Cholecalciferol (Vitamin D3) 25 MCG Tab PO SCH (07:16)
[2021-08-18] MEDS: Cyanocobalamin (Vitamin B12) 1,000 MCG Tab PO SCH (07:16)
[2021-08-18] MEDS: Fludrocortisone 0.1 MG Tab PO SCH ×2 (07:16→19:20)
[2021-08-18] MEDS: Furosemide 20 MG Tab PO SCH ×2 (07:17→11:47)
[2021-08-18] MEDS: Docusate Sodium 100 MG Cap PO SCH ×2 (07:17→17:02)
[2021-08-18] MEDS: Potassium Chloride 20 MEQ Tab.ER PO SCH ×4 (07:17→19:20)
[2021-08-18] MEDS: BUPROPION 300 MG PO SCH (19:20)
[2021-08-18] MEDS: Simvastatin 10 MG Tab PO SCH (19:20)
[2021-08-18] MEDS: LEVOTHYROXINE 137 MCG PO SCH (19:20)
[2021-08-18] MEDS: Menthol 10%/Methyl Salicylate 30% 85 GM Tube TOP PRN (19:23)
[2021-08-19] MEDS: Calcium Carbonate 750 MG Tab.Chew PO SCH (07:42)
[2021-08-19] MEDS: Acetaminophen 500 MG Tab PO SCH ×3 (07:43→19:38)
[2021-08-19] MEDS: Cholecalciferol (Vitamin D3) 25 MCG Tab PO SCH (07:43)
[2021-08-19] MEDS: Niacin 500 MG Tab PO SCH ×2 (07:44→17:22)
[2021-08-19] MEDS: Citalopram 20 MG Tab PO SCH (07:44)
[2021-08-19] MEDS: Fludrocortisone 0.1 MG Tab PO SCH ×2 (07:44→19:37)
[2021-08-19] MEDS: Docusate Sodium 100 MG Cap PO SCH ×2 (07:44→17:22)
[2021-08-19] MEDS: Potassium Chloride 20 MEQ Tab.ER PO SCH ×4 (07:44→19:37)
[2021-08-19] MEDS: Albuterol/Ipratropium 3.0-0.5 MG/3 ML Neb Soln NEB SCH ×2 (07:45→19:36)
[2021-08-19] MEDS: Cyanocobalamin (Vitamin B12) 1,000 MCG Tab PO SCH (07:45)
[2021-08-19] MEDS: Furosemide 20 MG Tab PO SCH ×2 (07:45→11:45)
[2021-08-19] MEDS: BUPROPION 300 MG PO SCH (19:37)
[2021-08-19] MEDS: LEVOTHYROXINE 137 MCG PO SCH (19:37)
[2021-08-19] MEDS: Simvastatin 10 MG Tab PO SCH (19:38)
[2021-08-19] MEDS: Menthol 10%/Methyl Salicylate 30% 85 GM Tube TOP PRN (19:39)
[2021-08-20] MEDS: Cholecalciferol (Vitamin D3) 25 MCG Tab PO SCH (07:35)
[2021-08-20] MEDS: Citalopram 20 MG Tab PO SCH (07:36)
[2021-08-20] MEDS: Cyanocobalamin (Vitamin B12) 1,000 MCG Tab PO SCH (07:36)
[2021-08-20] MEDS: Calcium Carbonate 750 MG Tab.Chew PO SCH (07:36)
[2021-08-20] MEDS: Acetaminophen 500 MG Tab PO SCH ×3 (07:36→19:44)
[2021-08-20] MEDS: Albuterol/Ipratropium 3.0-0.5 MG/3 ML Neb Soln NEB SCH ×2 (07:37→19:43)
[2021-08-20] MEDS: Docusate Sodium 100 MG Cap PO SCH ×2 (07:37→17:08)
[2021-08-20] MEDS: Potassium Chloride 20 MEQ Tab.ER PO SCH ×4 (07:37→19:43)
[2021-08-20] MEDS: Fludrocortisone 0.1 MG Tab PO SCH ×2 (07:37→19:43)
[2021-08-20] MEDS: Furosemide 20 MG Tab PO SCH ×2 (07:37→11:20)
[2021-08-20] MEDS: Niacin 500 MG Tab PO SCH ×2 (07:38→17:09)
[2021-08-20] MEDS: traMADol 50 MG Tab PO PRN (11:21)
[2021-08-20] MEDS: LEVOTHYROXINE 137 MCG PO SCH (19:43)
[2021-08-20] MEDS: BUPROPION 300 MG PO SCH (19:43)
[2021-08-20] MEDS: Simvastatin 10 MG Tab PO SCH (19:43)
[2021-08-20] MEDS: Menthol 10%/Methyl Salicylate 30% 85 GM Tube TOP PRN (19:44)
[2021-08-21] MEDS: Albuterol/Ipratropium 3.0-0.5 MG/3 ML Neb Soln NEB SCH ×2 (07:22→19:18)
[2021-08-21] MEDS: traMADol 50 MG Tab PO PRN (07:22)
[2021-08-21] MEDS: Acetaminophen 500 MG Tab PO SCH ×3 (07:23→19:18)
[2021-08-21] MEDS: Cholecalciferol (Vitamin D3) 25 MCG Tab PO SCH (07:23)
[2021-08-21] MEDS: Docusate Sodium 100 MG Cap PO SCH ×2 (07:24→17:08)
[2021-08-21] MEDS: Fludrocortisone 0.1 MG Tab PO SCH ×2 (07:24→19:17)
[2021-08-21] MEDS: Cyanocobalamin (Vitamin B12) 1,000 MCG Tab PO SCH (07:24)
[2021-08-21] MEDS: Potassium Chloride 20 MEQ Tab.ER PO SCH ×4 (07:24→19:17)
[2021-08-21] MEDS: Citalopram 20 MG Tab PO SCH (07:24)
[2021-08-21] MEDS: Calcium Carbonate 750 MG Tab.Chew PO SCH (07:25)
[2021-08-21] MEDS: Niacin 500 MG Tab PO SCH ×2 (07:25→17:08)
[2021-08-21] MEDS: Furosemide 20 MG Tab PO SCH ×2 (07:25→11:10)
[2021-08-21] MEDS: LEVOTHYROXINE 137 MCG PO SCH (19:17)
[2021-08-21] MEDS: Simvastatin 10 MG Tab PO SCH (19:17)
[2021-08-21] MEDS: BUPROPION 300 MG PO SCH (19:17)
[2021-08-22] MEDS: Albuterol/Ipratropium 3.0-0.5 MG/3 ML Neb Soln NEB SCH ×2 (07:12→19:02)
[2021-08-22] MEDS: Fludrocortisone 0.1 MG Tab PO SCH ×2 (07:13→19:03)
[2021-08-22] MEDS: Docusate Sodium 100 MG Cap PO SCH ×2 (07:13→17:17)
[2021-08-22] MEDS: Potassium Chloride 20 MEQ Tab.ER PO SCH ×4 (07:13→19:03)
[2021-08-22] MEDS: Citalopram 20 MG Tab PO SCH (07:13)
[2021-08-22] MEDS: Furosemide 20 MG Tab PO SCH ×2 (07:14→11:20)
[2021-08-22] MEDS: Niacin 500 MG Tab PO SCH ×2 (07:14→17:17)
[2021-08-22] MEDS: Calcium Carbonate 750 MG Tab.Chew PO SCH (07:15)
[2021-08-22] MEDS: Cyanocobalamin (Vitamin B12) 1,000 MCG Tab PO SCH (07:15)
[2021-08-22] MEDS: Acetaminophen 500 MG Tab PO SCH ×3 (07:15→19:04)
[2021-08-22] MEDS: Cholecalciferol (Vitamin D3) 25 MCG Tab PO SCH (07:16)
[2021-08-22] MEDS: BUPROPION 300 MG PO SCH (19:03)
[2021-08-22] MEDS: LEVOTHYROXINE 137 MCG PO SCH (19:03)
[2021-08-22] MEDS: Simvastatin 10 MG Tab PO SCH (19:04)
[2021-08-23] MEDS: Fludrocortisone 0.1 MG Tab PO SCH ×2 (08:16→19:30)
[2021-08-23] MEDS: Potassium Chloride 20 MEQ Tab.ER PO SCH ×4 (08:16→19:30)
[2021-08-23] MEDS: Citalopram 20 MG Tab PO SCH (08:16)
[2021-08-23] MEDS: Furosemide 20 MG Tab PO SCH ×2 (08:17→12:40)
[2021-08-23] MEDS: Docusate Sodium 100 MG Cap PO SCH ×2 (08:17→18:05)
[2021-08-23] MEDS: Albuterol/Ipratropium 3.0-0.5 MG/3 ML Neb Soln NEB SCH ×2 (08:17→19:29)
[2021-08-23] MEDS: Calcium Carbonate 750 MG Tab.Chew PO SCH (08:18)
[2021-08-23] MEDS: Niacin 500 MG Tab PO SCH ×2 (08:18→18:05)
[2021-08-23] MEDS: Acetaminophen 500 MG Tab PO SCH ×3 (08:19→19:31)
[2021-08-23] MEDS: Cholecalciferol (Vitamin D3) 25 MCG Tab PO SCH (08:19)
[2021-08-23] MEDS: Cyanocobalamin (Vitamin B12) 1,000 MCG Tab PO SCH (08:20)
[2021-08-23] MEDS: BUPROPION 300 MG PO SCH (19:31)
[2021-08-23] MEDS: LEVOTHYROXINE 137 MCG PO SCH (19:31)
[2021-08-23] MEDS: Simvastatin 10 MG Tab PO SCH (19:31)
[2021-08-23] MEDS: Menthol 10%/Methyl Salicylate 30% 85 GM Tube TOP PRN (19:32)
[2021-08-24] MEDS: traMADol 50 MG Tab PO PRN (02:13)
[2021-08-24] MEDS: Fludrocortisone 0.1 MG Tab PO SCH ×2 (08:22→19:42)
[2021-08-24] MEDS: Potassium Chloride 20 MEQ Tab.ER PO SCH ×4 (08:22→19:43)
[2021-08-24] MEDS: Citalopram 20 MG Tab PO SCH (08:22)
[2021-08-24] MEDS: Furosemide 20 MG Tab PO SCH ×2 (08:23→11:56)
[2021-08-24] MEDS: Docusate Sodium 100 MG Cap PO SCH ×2 (08:23→18:00)
[2021-08-24] MEDS: Albuterol/Ipratropium 3.0-0.5 MG/3 ML Neb Soln NEB SCH ×2 (08:23→19:38)
[2021-08-24] MEDS: Niacin 500 MG Tab PO SCH ×2 (08:24→18:01)
[2021-08-24] MEDS: Calcium Carbonate 750 MG Tab.Chew PO SCH (08:24)
[2021-08-24] MEDS: Cholecalciferol (Vitamin D3) 25 MCG Tab PO SCH (08:25)
[2021-08-24] MEDS: Acetaminophen 500 MG Tab PO SCH ×3 (08:25→19:44)
[2021-08-24] MEDS: Cyanocobalamin (Vitamin B12) 1,000 MCG Tab PO SCH (08:26)
[2021-08-24] MEDS: LEVOTHYROXINE 137 MCG PO SCH (19:43)
[2021-08-24] MEDS: BUPROPION 300 MG PO SCH (19:43)
[2021-08-24] MEDS: Simvastatin 10 MG Tab PO SCH (19:44)
[2021-08-25] MEDS: Fludrocortisone 0.1 MG Tab PO SCH ×2 (08:16→19:33)
[2021-08-25] MEDS: Furosemide 20 MG Tab PO SCH ×2 (08:16→11:36)
[2021-08-25] MEDS: Citalopram 20 MG Tab PO SCH (08:16)
[2021-08-25] MEDS: Potassium Chloride 20 MEQ Tab.ER PO SCH ×4 (08:16→19:34)
[2021-08-25] MEDS: Niacin 500 MG Tab PO SCH ×2 (08:17→17:13)
[2021-08-25] MEDS: Calcium Carbonate 750 MG Tab.Chew PO SCH (08:17)
[2021-08-25] MEDS: Acetaminophen 500 MG Tab PO SCH ×3 (08:18→19:35)
[2021-08-25] MEDS: Cyanocobalamin (Vitamin B12) 1,000 MCG Tab PO SCH (08:19)
[2021-08-25] MEDS: Cholecalciferol (Vitamin D3) 25 MCG Tab PO SCH (08:19)
[2021-08-25] MEDS: traMADol 50 MG Tab PO PRN (08:22)
[2021-08-25] MEDS: Docusate Sodium 100 MG Cap PO SCH ×2 (08:23→17:13)
[2021-08-25] MEDS: Albuterol/Ipratropium 3.0-0.5 MG/3 ML Neb Soln NEB SCH ×2 (08:23→19:28)
[2021-08-25] MEDS: LEVOTHYROXINE 137 MCG PO SCH (19:34)
[2021-08-25] MEDS: BUPROPION 300 MG PO SCH (19:34)
[2021-08-25] MEDS: Simvastatin 10 MG Tab PO SCH (19:36)
[2021-08-26] MEDS: traMADol 50 MG Tab PO PRN (08:37)
[2021-08-26] MEDS: Furosemide 20 MG Tab PO SCH ×2 (08:38→12:17)
[2021-08-26] MEDS: Albuterol/Ipratropium 3.0-0.5 MG/3 ML Neb Soln NEB SCH ×2 (08:39→19:26)
[2021-08-26] MEDS: Potassium Chloride 20 MEQ Tab.ER PO SCH ×4 (08:39→19:29)
[2021-08-26] MEDS: Fludrocortisone 0.1 MG Tab PO SCH ×2 (08:39→19:29)
[2021-08-26] MEDS: Citalopram 20 MG Tab PO SCH (08:39)
[2021-08-26] MEDS: Acetaminophen 500 MG Tab PO SCH ×3 (08:40→19:30)
[2021-08-26] MEDS: Calcium Carbonate 750 MG Tab.Chew PO SCH (08:40)
[2021-08-26] MEDS: Docusate Sodium 100 MG Cap PO SCH ×2 (08:40→17:53)
[2021-08-26] MEDS: Niacin 500 MG Tab PO SCH ×2 (08:40→17:52)
[2021-08-26] MEDS: Cyanocobalamin (Vitamin B12) 1,000 MCG Tab PO SCH (08:41)
[2021-08-26] MEDS: Cholecalciferol (Vitamin D3) 25 MCG Tab PO SCH (08:41)
[2021-08-26] MEDS: LEVOTHYROXINE 137 MCG PO SCH (19:30)
[2021-08-26] MEDS: BUPROPION 300 MG PO SCH (19:30)
[2021-08-26] MEDS: Simvastatin 10 MG Tab PO SCH (19:31)
[2021-08-27] MEDS: Albuterol/Ipratropium 3.0-0.5 MG/3 ML Neb Soln NEB SCH ×2 (07:21→19:24)
[2021-08-27] MEDS: Citalopram 20 MG Tab PO SCH (07:22)
[2021-08-27] MEDS: Docusate Sodium 100 MG Cap PO SCH ×2 (07:22→17:14)
[2021-08-27] MEDS: Furosemide 20 MG Tab PO SCH ×2 (07:23→11:28)
[2021-08-27] MEDS: Fludrocortisone 0.1 MG Tab PO SCH ×2 (07:23→19:24)
[2021-08-27] MEDS: Potassium Chloride 20 MEQ Tab.ER PO SCH ×4 (07:23→19:24)
[2021-08-27] MEDS: Acetaminophen 500 MG Tab PO SCH ×3 (07:24→19:26)
[2021-08-27] MEDS: Calcium Carbonate 750 MG Tab.Chew PO SCH (07:24)
[2021-08-27] MEDS: Niacin 500 MG Tab PO SCH ×2 (07:24→17:14)
[2021-08-27] MEDS: Cyanocobalamin (Vitamin B12) 1,000 MCG Tab PO SCH (07:25)
[2021-08-27] MEDS: Cholecalciferol (Vitamin D3) 25 MCG Tab PO SCH (07:25)
[2021-08-27] MEDS: traMADol 50 MG Tab PO PRN (11:30)
[2021-08-27] MEDS: Simvastatin 10 MG Tab PO SCH (19:25)
[2021-08-27] MEDS: LEVOTHYROXINE 137 MCG PO SCH (19:25)
[2021-08-27] MEDS: BUPROPION 300 MG PO SCH (19:25)
[2021-08-27] MEDS: Menthol 10%/Methyl Salicylate 30% 85 GM Tube TOP PRN (19:27)
[2021-08-28] MEDS: Potassium Chloride 20 MEQ Tab.ER PO SCH ×4 (07:56→19:41)
[2021-08-28] MEDS: Fludrocortisone 0.1 MG Tab PO SCH ×2 (07:56→19:40)
[2021-08-28] MEDS: Citalopram 20 MG Tab PO SCH (07:56)
[2021-08-28] MEDS: Furosemide 20 MG Tab PO SCH ×2 (07:58→12:21)
[2021-08-28] MEDS: Docusate Sodium 100 MG Cap PO SCH ×2 (07:59→17:46)
[2021-08-28] MEDS: Albuterol/Ipratropium 3.0-0.5 MG/3 ML Neb Soln NEB SCH ×2 (07:59→19:40)
[2021-08-28] MEDS: Calcium Carbonate 750 MG Tab.Chew PO SCH (08:00)
[2021-08-28] MEDS: Niacin 500 MG Tab PO SCH ×2 (08:00→17:46)
[2021-08-28] MEDS: Acetaminophen 500 MG Tab PO SCH ×3 (08:01→19:42)
[2021-08-28] MEDS: Cholecalciferol (Vitamin D3) 25 MCG Tab PO SCH (08:03)
[2021-08-28] MEDS: Cyanocobalamin (Vitamin B12) 1,000 MCG Tab PO SCH (08:03)
[2021-08-28] MEDS: BUPROPION 300 MG PO SCH (19:41)
[2021-08-28] MEDS: LEVOTHYROXINE 137 MCG PO SCH (19:41)
[2021-08-28] MEDS: Simvastatin 10 MG Tab PO SCH (19:41)
[2021-08-28] MEDS: Menthol 10%/Methyl Salicylate 30% 85 GM Tube TOP PRN (19:42)
[2021-08-29] MEDS: Citalopram 20 MG Tab PO SCH (07:33)
[2021-08-29] MEDS: Furosemide 20 MG Tab PO SCH ×2 (07:33→11:34)
[2021-08-29] MEDS: Potassium Chloride 20 MEQ Tab.ER PO SCH ×4 (07:33→19:22)
[2021-08-29] MEDS: Docusate Sodium 100 MG Cap PO SCH ×2 (07:34→17:40)
[2021-08-29] MEDS: Fludrocortisone 0.1 MG Tab PO SCH ×2 (07:34→19:21)
[2021-08-29] MEDS: Albuterol/Ipratropium 3.0-0.5 MG/3 ML Neb Soln NEB SCH ×2 (07:34→19:21)
[2021-08-29] MEDS: Niacin 500 MG Tab PO SCH ×2 (07:35→17:40)
[2021-08-29] MEDS: Calcium Carbonate 750 MG Tab.Chew PO SCH (07:35)
[2021-08-29] MEDS: Acetaminophen 500 MG Tab PO SCH ×3 (07:35→19:23)
[2021-08-29] MEDS: Cyanocobalamin (Vitamin B12) 1,000 MCG Tab PO SCH (07:36)
[2021-08-29] MEDS: Cholecalciferol (Vitamin D3) 25 MCG Tab PO SCH (07:36)
[2021-08-29] MEDS: BUPROPION 300 MG PO SCH (19:22)
[2021-08-29] MEDS: LEVOTHYROXINE 137 MCG PO SCH (19:22)
[2021-08-29] MEDS: Simvastatin 10 MG Tab PO SCH (19:23)
[2021-08-29] MEDS: Menthol 10%/Methyl Salicylate 30% 85 GM Tube TOP PRN (19:23)
[2021-08-30] MEDS: Furosemide 20 MG Tab PO SCH ×2 (07:55→11:55)
[2021-08-30] MEDS: Fludrocortisone 0.1 MG Tab PO SCH ×2 (07:55→19:45)
[2021-08-30] MEDS: Citalopram 20 MG Tab PO SCH (07:55)
[2021-08-30] MEDS: Albuterol/Ipratropium 3.0-0.5 MG/3 ML Neb Soln NEB SCH ×2 (07:56→19:41)
[2021-08-30] MEDS: Potassium Chloride 20 MEQ Tab.ER PO SCH ×4 (07:56→19:45)
[2021-08-30] MEDS: Docusate Sodium 100 MG Cap PO SCH ×2 (07:57→17:31)
[2021-08-30] MEDS: Niacin 500 MG Tab PO SCH ×2 (07:57→17:31)
[2021-08-30] MEDS: Cholecalciferol (Vitamin D3) 25 MCG Tab PO SCH (07:58)
[2021-08-30] MEDS: Cyanocobalamin (Vitamin B12) 1,000 MCG Tab PO SCH (07:58)
[2021-08-30] MEDS: Acetaminophen 500 MG Tab PO SCH ×3 (07:58→19:46)
[2021-08-30] MEDS: Calcium Carbonate 750 MG Tab.Chew PO SCH (07:58)
[2021-08-30] MEDS: LEVOTHYROXINE 137 MCG PO SCH (19:46)
[2021-08-30] MEDS: BUPROPION 300 MG PO SCH (19:46)
[2021-08-30] MEDS: Simvastatin 10 MG Tab PO SCH (19:47)
[2021-08-31] MEDS: traMADol 50 MG Tab PO PRN ×2 (04:29→15:19)
[2021-08-31] MEDS: Albuterol/Ipratropium 3.0-0.5 MG/3 ML Neb Soln NEB SCH ×2 (07:14→19:49)
[2021-08-31] MEDS: Potassium Chloride 20 MEQ Tab.ER PO SCH ×4 (07:15→19:49)
[2021-08-31] MEDS: Fludrocortisone 0.1 MG Tab PO SCH ×2 (07:15→19:49)
[2021-08-31] MEDS: Citalopram 20 MG Tab PO SCH (07:15)
[2021-08-31] MEDS: Docusate Sodium 100 MG Cap PO SCH ×2 (07:15→17:08)
[2021-08-31] MEDS: Calcium Carbonate 750 MG Tab.Chew PO SCH (07:16)
[2021-08-31] MEDS: Niacin 500 MG Tab PO SCH ×2 (07:16→17:09)
[2021-08-31] MEDS: Furosemide 20 MG Tab PO SCH ×2 (07:16→11:27)
[2021-08-31] MEDS: Cyanocobalamin (Vitamin B12) 1,000 MCG Tab PO SCH (07:17)
[2021-08-31] MEDS: Acetaminophen 500 MG Tab PO SCH ×3 (07:17→19:50)
[2021-08-31] MEDS: Cholecalciferol (Vitamin D3) 25 MCG Tab PO SCH (07:17)
[2021-08-31] MEDS: LEVOTHYROXINE 137 MCG PO SCH (19:49)
[2021-08-31] MEDS: BUPROPION 300 MG PO SCH (19:50)
[2021-08-31] MEDS: Simvastatin 10 MG Tab PO SCH (19:50)
[2021-09-01] MEDS: Docusate Sodium 100 MG Cap PO SCH ×2 (07:18→17:00)
[2021-09-01] MEDS: Cyanocobalamin (Vitamin B12) 1,000 MCG Tab PO SCH (07:18)
[2021-09-01] MEDS: Calcium Carbonate 750 MG Tab.Chew PO SCH (07:18)
[2021-09-01] MEDS: Cholecalciferol (Vitamin D3) 25 MCG Tab PO SCH (07:18)
[2021-09-01] MEDS: Citalopram 20 MG Tab PO SCH (07:18)
[2021-09-01] MEDS: Albuterol/Ipratropium 3.0-0.5 MG/3 ML Neb Soln NEB SCH ×2 (07:18→19:11)
[2021-09-01] MEDS: Fludrocortisone 0.1 MG Tab PO SCH ×2 (07:19→19:09)
[2021-09-01] MEDS: Furosemide 20 MG Tab PO SCH ×2 (07:19→11:19)
[2021-09-01] MEDS: Potassium Chloride 20 MEQ Tab.ER PO SCH ×4 (07:19→19:09)
[2021-09-01] MEDS: Acetaminophen 500 MG Tab PO SCH ×3 (07:20→19:10)
[2021-09-01] MEDS: Niacin 500 MG Tab PO SCH ×2 (07:20→17:00)
[2021-09-01] MEDS: traMADol 50 MG Tab PO PRN (11:20)
[2021-09-01] MEDS: BUPROPION 300 MG PO SCH (19:10)
[2021-09-01] MEDS: Simvastatin 10 MG Tab PO SCH (19:10)
[2021-09-01] MEDS: LEVOTHYROXINE 137 MCG PO SCH (19:10)
[2021-09-02] MEDS: Citalopram 20 MG Tab PO SCH (07:30)
[2021-09-02] MEDS: Docusate Sodium 100 MG Cap PO SCH ×2 (07:31→17:18)
[2021-09-02] MEDS: Albuterol/Ipratropium 3.0-0.5 MG/3 ML Neb Soln NEB SCH ×2 (07:31→19:28)
[2021-09-02] MEDS: Potassium Chloride 20 MEQ Tab.ER PO SCH ×4 (07:31→19:29)
[2021-09-02] MEDS: Furosemide 20 MG Tab PO SCH ×2 (07:31→11:21)
[2021-09-02] MEDS: Fludrocortisone 0.1 MG Tab PO SCH ×2 (07:31→19:07)
[2021-09-02] MEDS: Niacin 500 MG Tab PO SCH ×2 (07:32→17:18)
[2021-09-02] MEDS: Acetaminophen 500 MG Tab PO SCH ×3 (07:32→19:31)
[2021-09-02] MEDS: Calcium Carbonate 750 MG Tab.Chew PO SCH (07:32)
[2021-09-02] MEDS: Cholecalciferol (Vitamin D3) 25 MCG Tab PO SCH (07:33)
[2021-09-02] MEDS: Cyanocobalamin (Vitamin B12) 1,000 MCG Tab PO SCH (07:33)
[2021-09-02] MEDS: traMADol 50 MG Tab PO PRN (11:22)
[2021-09-02] MEDS: Simvastatin 10 MG Tab PO SCH (19:30)
[2021-09-02] MEDS: BUPROPION 300 MG PO SCH (19:30)
[2021-09-02] MEDS: LEVOTHYROXINE 137 MCG PO SCH (19:30)
[2021-09-03] MEDS: Citalopram 20 MG Tab PO SCH (08:16)
[2021-09-03] MEDS: Potassium Chloride 20 MEQ Tab.ER PO SCH ×4 (08:16→19:37)
[2021-09-03] MEDS: Fludrocortisone 0.1 MG Tab PO SCH ×2 (08:16→19:37)
[2021-09-03] MEDS: Docusate Sodium 100 MG Cap PO SCH ×2 (08:17→17:38)
[2021-09-03] MEDS: Furosemide 20 MG Tab PO SCH ×2 (08:17→11:07)
[2021-09-03] MEDS: Albuterol/Ipratropium 3.0-0.5 MG/3 ML Neb Soln NEB SCH ×2 (08:17→19:34)
[2021-09-03] MEDS: Niacin 500 MG Tab PO SCH ×2 (08:17→17:38)
[2021-09-03] MEDS: Calcium Carbonate 750 MG Tab.Chew PO SCH (08:18)
[2021-09-03] MEDS: Acetaminophen 500 MG Tab PO SCH ×3 (08:18→19:38)
[2021-09-03] MEDS: Cholecalciferol (Vitamin D3) 25 MCG Tab PO SCH (08:18)
[2021-09-03] MEDS: Cyanocobalamin (Vitamin B12) 1,000 MCG Tab PO SCH (08:18)
[2021-09-03] MEDS: LEVOTHYROXINE 137 MCG PO SCH (19:37)
[2021-09-03] MEDS: BUPROPION 300 MG PO SCH (19:38)
[2021-09-03] MEDS: Simvastatin 10 MG Tab PO SCH (19:39)
[2021-09-03] MEDS: traMADol 50 MG Tab PO PRN (19:40)
[2021-09-04] MEDS: Citalopram 20 MG Tab PO SCH (08:24)
[2021-09-04] MEDS: Fludrocortisone 0.1 MG Tab PO SCH ×2 (08:24→19:51)
[2021-09-04] MEDS: Potassium Chloride 20 MEQ Tab.ER PO SCH ×4 (08:25→19:51)
[2021-09-04] MEDS: Furosemide 20 MG Tab PO SCH ×2 (08:25→12:07)
[2021-09-04] MEDS: Albuterol/Ipratropium 3.0-0.5 MG/3 ML Neb Soln NEB SCH ×2 (08:27→19:51)
[2021-09-04] MEDS: Docusate Sodium 100 MG Cap PO SCH ×2 (08:27→17:44)
[2021-09-04] MEDS: Acetaminophen 500 MG Tab PO SCH ×3 (08:28→19:52)
[2021-09-04] MEDS: Niacin 500 MG Tab PO SCH ×2 (08:28→17:44)
[2021-09-04] MEDS: Calcium Carbonate 750 MG Tab.Chew PO SCH (08:28)
[2021-09-04] MEDS: Cholecalciferol (Vitamin D3) 25 MCG Tab PO SCH (08:29)
[2021-09-04] MEDS: Cyanocobalamin (Vitamin B12) 1,000 MCG Tab PO SCH (08:29)
[2021-09-04] MEDS: Simvastatin 10 MG Tab PO SCH (19:52)
[2021-09-04] MEDS: LEVOTHYROXINE 137 MCG PO SCH (19:52)
[2021-09-04] MEDS: BUPROPION 300 MG PO SCH (19:52)
[2021-09-05] MEDS: Albuterol/Ipratropium 3.0-0.5 MG/3 ML Neb Soln NEB SCH ×2 (07:30→19:22)
[2021-09-05] MEDS: Cyanocobalamin (Vitamin B12) 1,000 MCG Tab PO SCH (07:31)
[2021-09-05] MEDS: Cholecalciferol (Vitamin D3) 25 MCG Tab PO SCH (07:31)
[2021-09-05] MEDS: Acetaminophen 500 MG Tab PO SCH ×3 (07:31→19:24)
[2021-09-05] MEDS: Calcium Carbonate 750 MG Tab.Chew PO SCH (07:31)
[2021-09-05] MEDS: Citalopram 20 MG Tab PO SCH (07:32)
[2021-09-05] MEDS: Fludrocortisone 0.1 MG Tab PO SCH ×2 (07:32→19:23)
[2021-09-05] MEDS: Docusate Sodium 100 MG Cap PO SCH ×2 (07:32→17:15)
[2021-09-05] MEDS: Niacin 500 MG Tab PO SCH ×2 (07:33→17:15)
[2021-09-05] MEDS: Furosemide 20 MG Tab PO SCH ×2 (07:33→11:13)
[2021-09-05] MEDS: Potassium Chloride 20 MEQ Tab.ER PO SCH ×4 (07:33→19:23)
[2021-09-05] MEDS: traMADol 50 MG Tab PO PRN (07:59)
[2021-09-05] MEDS: LEVOTHYROXINE 137 MCG PO SCH (19:23)
[2021-09-05] MEDS: Simvastatin 10 MG Tab PO SCH (19:24)
[2021-09-05] MEDS: BUPROPION 300 MG PO SCH (19:24)
[2021-09-05] MEDS: Menthol 10%/Methyl Salicylate 30% 85 GM Tube TOP PRN (19:25)
[2021-09-06] MEDS: Albuterol/Ipratropium 3.0-0.5 MG/3 ML Neb Soln NEB SCH ×2 (07:24→19:21)
[2021-09-06] MEDS: Calcium Carbonate 750 MG Tab.Chew PO SCH (07:25)
[2021-09-06] MEDS: Docusate Sodium 100 MG Cap PO SCH ×2 (07:25→17:23)
[2021-09-06] MEDS: Cholecalciferol (Vitamin D3) 25 MCG Tab PO SCH (07:25)
[2021-09-06] MEDS: Citalopram 20 MG Tab PO SCH (07:25)
[2021-09-06] MEDS: Cyanocobalamin (Vitamin B12) 1,000 MCG Tab PO SCH (07:25)
[2021-09-06] MEDS: Fludrocortisone 0.1 MG Tab PO SCH ×2 (07:26→19:23)
[2021-09-06] MEDS: Furosemide 20 MG Tab PO SCH ×2 (07:26→11:19)
[2021-09-06] MEDS: Potassium Chloride 20 MEQ Tab.ER PO SCH ×4 (07:26→19:23)
[2021-09-06] MEDS: Niacin 500 MG Tab PO SCH ×2 (07:27→17:23)
[2021-09-06] MEDS: Acetaminophen 500 MG Tab PO SCH ×3 (07:27→19:24)
[2021-09-06] MEDS: Bisacodyl 5 MG Tab PO PRN (12:29)
[2021-09-06] MEDS: LEVOTHYROXINE 137 MCG PO SCH (19:24)
[2021-09-06] MEDS: BUPROPION 300 MG PO SCH (19:24)
[2021-09-06] MEDS: Simvastatin 10 MG Tab PO SCH (19:25)
[2021-09-07] MEDS: Potassium Chloride 20 MEQ Tab.ER PO SCH ×4 (08:11→19:32)
[2021-09-07] MEDS: Fludrocortisone 0.1 MG Tab PO SCH ×2 (08:11→19:32)
[2021-09-07] MEDS: Citalopram 20 MG Tab PO SCH (08:11)
[2021-09-07] MEDS: Furosemide 20 MG Tab PO SCH ×2 (08:12→12:05)
[2021-09-07] MEDS: Albuterol/Ipratropium 3.0-0.5 MG/3 ML Neb Soln NEB SCH ×2 (08:12→19:32)
[2021-09-07] MEDS: Niacin 500 MG Tab PO SCH ×2 (08:13→17:07)
[2021-09-07] MEDS: Cyanocobalamin (Vitamin B12) 1,000 MCG Tab PO SCH (08:13)
[2021-09-07] MEDS: Calcium Carbonate 750 MG Tab.Chew PO SCH (08:13)
[2021-09-07] MEDS: Cholecalciferol (Vitamin D3) 25 MCG Tab PO SCH (08:13)
[2021-09-07] MEDS: Docusate Sodium 100 MG Cap PO SCH ×2 (08:13→17:07)
[2021-09-07] MEDS: Acetaminophen 500 MG Tab PO SCH ×3 (08:14→19:33)
[2021-09-07] MEDS: LEVOTHYROXINE 137 MCG PO SCH (19:33)
[2021-09-07] MEDS: BUPROPION 300 MG PO SCH (19:33)
[2021-09-07] MEDS: Menthol 10%/Methyl Salicylate 30% 85 GM Tube TOP PRN (19:34)
[2021-09-07] MEDS: Simvastatin 10 MG Tab PO SCH (19:34)
[2021-09-08] MEDS: Albuterol/Ipratropium 3.0-0.5 MG/3 ML Neb Soln NEB SCH ×2 (07:20→19:41)
[2021-09-08] MEDS: Calcium Carbonate 750 MG Tab.Chew PO SCH (07:20)
[2021-09-08] MEDS: Cholecalciferol (Vitamin D3) 25 MCG Tab PO SCH (07:21)
[2021-09-08] MEDS: Niacin 500 MG Tab PO SCH ×2 (07:21→16:59)
[2021-09-08] MEDS: Acetaminophen 500 MG Tab PO SCH ×3 (07:21→19:42)
[2021-09-08] MEDS: Cyanocobalamin (Vitamin B12) 1,000 MCG Tab PO SCH (07:21)
[2021-09-08] MEDS: Docusate Sodium 100 MG Cap PO SCH ×2 (07:22→16:59)
[2021-09-08] MEDS: Fludrocortisone 0.1 MG Tab PO SCH ×2 (07:22→19:41)
[2021-09-08] MEDS: Citalopram 20 MG Tab PO SCH (07:22)
[2021-09-08] MEDS: Potassium Chloride 20 MEQ Tab.ER PO SCH ×4 (07:22→19:41)
[2021-09-08] MEDS: Furosemide 20 MG Tab PO SCH ×2 (07:23→11:06)
[2021-09-08] MEDS: LEVOTHYROXINE 137 MCG PO SCH (19:41)
[2021-09-08] MEDS: BUPROPION 300 MG PO SCH (19:42)
[2021-09-08] MEDS: Simvastatin 10 MG Tab PO SCH (19:42)
[2021-09-09] MEDS: Albuterol/Ipratropium 3.0-0.5 MG/3 ML Neb Soln NEB SCH ×2 (07:24→19:48)
[2021-09-09] MEDS: Calcium Carbonate 750 MG Tab.Chew PO SCH (07:24)
[2021-09-09] MEDS: Potassium Chloride 20 MEQ Tab.ER PO SCH ×4 (07:25→19:48)
[2021-09-09] MEDS: Citalopram 20 MG Tab PO SCH (07:25)
[2021-09-09] MEDS: Fludrocortisone 0.1 MG Tab PO SCH ×2 (07:25→19:48)
[2021-09-09] MEDS: Niacin 500 MG Tab PO SCH ×2 (07:26→17:08)
[2021-09-09] MEDS: Docusate Sodium 100 MG Cap PO SCH ×2 (07:26→17:08)
[2021-09-09] MEDS: Furosemide 20 MG Tab PO SCH ×2 (07:26→11:52)
[2021-09-09] MEDS: Acetaminophen 500 MG Tab PO SCH ×3 (07:27→19:49)
[2021-09-09] MEDS: Cholecalciferol (Vitamin D3) 25 MCG Tab PO SCH (07:27)
[2021-09-09] MEDS: Cyanocobalamin (Vitamin B12) 1,000 MCG Tab PO SCH (07:27)
[2021-09-09] MEDS: BUPROPION 300 MG PO SCH (19:49)
[2021-09-09] MEDS: Simvastatin 10 MG Tab PO SCH (19:49)
[2021-09-09] MEDS: LEVOTHYROXINE 137 MCG PO SCH (19:49)
[2021-09-09] MEDS: Menthol 10%/Methyl Salicylate 30% 85 GM Tube TOP PRN (19:51)
[2021-09-10] MEDS: Fludrocortisone 0.1 MG Tab PO SCH ×2 (07:39→19:45)
[2021-09-10] MEDS: Citalopram 20 MG Tab PO SCH (07:39)
[2021-09-10] MEDS: Potassium Chloride 20 MEQ Tab.ER PO SCH ×4 (07:39→19:45)
[2021-09-10] MEDS: Docusate Sodium 100 MG Cap PO SCH ×2 (07:39→17:11)
[2021-09-10] MEDS: Albuterol/Ipratropium 3.0-0.5 MG/3 ML Neb Soln NEB SCH ×2 (07:39→19:45)
[2021-09-10] MEDS: Furosemide 20 MG Tab PO SCH ×2 (07:40→11:14)
[2021-09-10] MEDS: Calcium Carbonate 750 MG Tab.Chew PO SCH (07:40)
[2021-09-10] MEDS: Niacin 500 MG Tab PO SCH ×2 (07:40→17:11)
[2021-09-10] MEDS: Acetaminophen 500 MG Tab PO SCH ×3 (07:41→19:48)
[2021-09-10] MEDS: Cyanocobalamin (Vitamin B12) 1,000 MCG Tab PO SCH (07:41)
[2021-09-10] MEDS: Cholecalciferol (Vitamin D3) 25 MCG Tab PO SCH (07:42)
[2021-09-10] MEDS: Albuterol/Ipratropium 3.0-0.5 MG/3 ML Neb Soln NEB PRN (19:44)
[2021-09-10] MEDS: LEVOTHYROXINE 137 MCG PO SCH (19:46)
[2021-09-10] MEDS: Simvastatin 10 MG Tab PO SCH (19:47)
[2021-09-10] MEDS: BUPROPION 300 MG PO SCH (19:47)
[2021-09-11] MEDS: Calcium Carbonate 750 MG Tab.Chew PO SCH (07:32)
[2021-09-11] MEDS: Cyanocobalamin (Vitamin B12) 1,000 MCG Tab PO SCH (07:33)
[2021-09-11] MEDS: Docusate Sodium 100 MG Cap PO SCH ×2 (07:33→17:04)
[2021-09-11] MEDS: Cholecalciferol (Vitamin D3) 25 MCG Tab PO SCH (07:33)
[2021-09-11] MEDS: Acetaminophen 500 MG Tab PO SCH ×3 (07:33→19:42)
[2021-09-11] MEDS: Albuterol/Ipratropium 3.0-0.5 MG/3 ML Neb Soln NEB SCH ×2 (07:33→19:41)
[2021-09-11] MEDS: Niacin 500 MG Tab PO SCH ×2 (07:34→17:05)
[2021-09-11] MEDS: Fludrocortisone 0.1 MG Tab PO SCH ×2 (07:35→19:41)
[2021-09-11] MEDS: Citalopram 20 MG Tab PO SCH (07:35)
[2021-09-11] MEDS: Potassium Chloride 20 MEQ Tab.ER PO SCH ×4 (07:35→19:41)
[2021-09-11] MEDS: Furosemide 20 MG Tab PO SCH ×2 (07:35→11:11)
[2021-09-11] MEDS: Bisacodyl 5 MG Tab PO PRN (09:35)
[2021-09-11] MEDS: BUPROPION 300 MG PO SCH (19:42)
[2021-09-11] MEDS: Simvastatin 10 MG Tab PO SCH (19:42)
[2021-09-11] MEDS: LEVOTHYROXINE 137 MCG PO SCH (19:42)
[2021-09-11] MEDS: Menthol 10%/Methyl Salicylate 30% 85 GM Tube TOP PRN (19:44)
[2021-09-12] MEDS: Docusate Sodium 100 MG Cap PO SCH ×2 (07:37→17:01)
[2021-09-12] MEDS: Niacin 500 MG Tab PO SCH ×2 (07:38→17:01)
[2021-09-12] MEDS: Acetaminophen 500 MG Tab PO SCH ×3 (07:38→19:37)
[2021-09-12] MEDS: Calcium Carbonate 750 MG Tab.Chew PO SCH (07:38)
[2021-09-12] MEDS: Cyanocobalamin (Vitamin B12) 1,000 MCG Tab PO SCH (07:38)
[2021-09-12] MEDS: Cholecalciferol (Vitamin D3) 25 MCG Tab PO SCH (07:38)
[2021-09-12] MEDS: Fludrocortisone 0.1 MG Tab PO SCH ×2 (07:39→19:36)
[2021-09-12] MEDS: Potassium Chloride 20 MEQ Tab.ER PO SCH ×4 (07:39→19:36)
[2021-09-12] MEDS: Citalopram 20 MG Tab PO SCH (07:39)
[2021-09-12] MEDS: Furosemide 20 MG Tab PO SCH ×2 (07:40→11:55)
[2021-09-12] MEDS: Albuterol/Ipratropium 3.0-0.5 MG/3 ML Neb Soln NEB SCH ×2 (07:40→19:38)
[2021-09-12] MEDS: traMADol 50 MG Tab PO PRN (07:41)
[2021-09-12] MEDS: LEVOTHYROXINE 137 MCG PO SCH (19:36)
[2021-09-12] MEDS: BUPROPION 300 MG PO SCH (19:36)
[2021-09-12] MEDS: Simvastatin 10 MG Tab PO SCH (19:37)
[2021-09-13] MEDS: Calcium Carbonate 750 MG Tab.Chew PO SCH (07:22)
[2021-09-13] MEDS: Cyanocobalamin (Vitamin B12) 1,000 MCG Tab PO SCH (07:23)
[2021-09-13] MEDS: Cholecalciferol (Vitamin D3) 25 MCG Tab PO SCH (07:23)
[2021-09-13] MEDS: Acetaminophen 500 MG Tab PO SCH ×3 (07:23→19:14)
[2021-09-13] MEDS: Albuterol/Ipratropium 3.0-0.5 MG/3 ML Neb Soln NEB SCH ×2 (07:24→19:13)
[2021-09-13] MEDS: Citalopram 20 MG Tab PO SCH (07:24)
[2021-09-13] MEDS: Docusate Sodium 100 MG Cap PO SCH ×2 (07:24→17:09)
[2021-09-13] MEDS: Fludrocortisone 0.1 MG Tab PO SCH ×2 (07:24→19:13)
[2021-09-13] MEDS: Furosemide 20 MG Tab PO SCH ×2 (07:25→11:18)
[2021-09-13] MEDS: Niacin 500 MG Tab PO SCH ×2 (07:25→17:09)
[2021-09-13] MEDS: Potassium Chloride 20 MEQ Tab.ER PO SCH ×4 (07:25→19:13)
[2021-09-13] MEDS: LEVOTHYROXINE 137 MCG PO SCH (19:13)
[2021-09-13] MEDS: BUPROPION 300 MG PO SCH (19:13)
[2021-09-13] MEDS: Simvastatin 10 MG Tab PO SCH (19:14)
[2021-09-14] MEDS: Potassium Chloride 20 MEQ Tab.ER PO SCH ×4 (07:50→19:47)
[2021-09-14] MEDS: Citalopram 20 MG Tab PO SCH (07:50)
[2021-09-14] MEDS: Fludrocortisone 0.1 MG Tab PO SCH ×2 (07:50→19:47)
[2021-09-14] MEDS: Furosemide 20 MG Tab PO SCH ×2 (07:51→11:27)
[2021-09-14] MEDS: Docusate Sodium 100 MG Cap PO SCH ×2 (07:52→17:28)
[2021-09-14] MEDS: Niacin 500 MG Tab PO SCH ×2 (07:52→17:28)
[2021-09-14] MEDS: Calcium Carbonate 750 MG Tab.Chew PO SCH (07:52)
[2021-09-14] MEDS: Albuterol/Ipratropium 3.0-0.5 MG/3 ML Neb Soln NEB SCH ×2 (07:52→19:44)
[2021-09-14] MEDS: Acetaminophen 500 MG Tab PO SCH ×3 (07:53→19:48)
[2021-09-14] MEDS: Cholecalciferol (Vitamin D3) 25 MCG Tab PO SCH (07:54)
[2021-09-14] MEDS: Cyanocobalamin (Vitamin B12) 1,000 MCG Tab PO SCH (07:54)
[2021-09-14] MEDS: LEVOTHYROXINE 137 MCG PO SCH (19:48)
[2021-09-14] MEDS: BUPROPION 300 MG PO SCH (19:48)
[2021-09-14] MEDS: Simvastatin 10 MG Tab PO SCH (19:49)
[2021-09-15] MEDS: Citalopram 20 MG Tab PO SCH (07:13)
[2021-09-15] MEDS: Albuterol/Ipratropium 3.0-0.5 MG/3 ML Neb Soln NEB SCH ×2 (07:13→19:32)
[2021-09-15] MEDS: Fludrocortisone 0.1 MG Tab PO SCH ×2 (07:13→19:34)
[2021-09-15] MEDS: Docusate Sodium 100 MG Cap PO SCH ×2 (07:13→17:39)
[2021-09-15] MEDS: Potassium Chloride 20 MEQ Tab.ER PO SCH ×4 (07:14→19:35)
[2021-09-15] MEDS: Furosemide 20 MG Tab PO SCH ×2 (07:14→11:21)
[2021-09-15] MEDS: Niacin 500 MG Tab PO SCH ×2 (07:14→17:39)
[2021-09-15] MEDS: Acetaminophen 500 MG Tab PO SCH ×3 (07:15→19:35)
[2021-09-15] MEDS: Calcium Carbonate 750 MG Tab.Chew PO SCH (07:15)
[2021-09-15] MEDS: Cholecalciferol (Vitamin D3) 25 MCG Tab PO SCH (07:16)
[2021-09-15] MEDS: Cyanocobalamin (Vitamin B12) 1,000 MCG Tab PO SCH (07:16)
[2021-09-15] MEDS: BUPROPION 300 MG PO SCH (19:35)
[2021-09-15] MEDS: LEVOTHYROXINE 137 MCG PO SCH (19:35)
[2021-09-15] MEDS: Simvastatin 10 MG Tab PO SCH (19:36)
[2021-09-16] MEDS: Potassium Chloride 20 MEQ Tab.ER PO SCH ×4 (07:52→19:53)
[2021-09-16] MEDS: Citalopram 20 MG Tab PO SCH (07:52)
[2021-09-16] MEDS: Fludrocortisone 0.1 MG Tab PO SCH ×2 (07:52→19:53)
[2021-09-16] MEDS: Albuterol/Ipratropium 3.0-0.5 MG/3 ML Neb Soln NEB SCH ×2 (07:55→19:53)
[2021-09-16] MEDS: Docusate Sodium 100 MG Cap PO SCH ×2 (07:56→17:37)
[2021-09-16] MEDS: Niacin 500 MG Tab PO SCH ×2 (07:56→17:37)
[2021-09-16] MEDS: Furosemide 20 MG Tab PO SCH ×2 (07:56→12:03)
[2021-09-16] MEDS: Calcium Carbonate 750 MG Tab.Chew PO SCH (07:57)
[2021-09-16] MEDS: Acetaminophen 500 MG Tab PO SCH ×3 (07:57→19:54)
[2021-09-16] MEDS: Cyanocobalamin (Vitamin B12) 1,000 MCG Tab PO SCH (07:58)
[2021-09-16] MEDS: Cholecalciferol (Vitamin D3) 25 MCG Tab PO SCH (07:58)
[2021-09-16] MEDS: Aluminum Hydroxide/Magnesium Hydroxide/Simethicone Susp 30 ML Cup PO PRN (09:39)
[2021-09-16] MEDS: Simvastatin 10 MG Tab PO SCH (19:54)
[2021-09-16] MEDS: LEVOTHYROXINE 137 MCG PO SCH (19:54)
[2021-09-16] MEDS: BUPROPION 300 MG PO SCH (19:54)
[2021-09-16] MEDS: Menthol 10%/Methyl Salicylate 30% 85 GM Tube TOP PRN (19:55)
[2021-09-17] MEDS: Albuterol/Ipratropium 3.0-0.5 MG/3 ML Neb Soln NEB SCH ×2 (07:28→19:31)
[2021-09-17] MEDS: Calcium Carbonate 750 MG Tab.Chew PO SCH (07:28)
[2021-09-17] MEDS: Docusate Sodium 100 MG Cap PO SCH ×2 (07:28→17:07)
[2021-09-17] MEDS: Cyanocobalamin (Vitamin B12) 1,000 MCG Tab PO SCH (07:29)
[2021-09-17] MEDS: Acetaminophen 500 MG Tab PO SCH ×3 (07:29→19:34)
[2021-09-17] MEDS: Niacin 500 MG Tab PO SCH ×2 (07:29→17:07)
[2021-09-17] MEDS: Cholecalciferol (Vitamin D3) 25 MCG Tab PO SCH (07:29)
[2021-09-17] MEDS: Citalopram 20 MG Tab PO SCH (07:30)
[2021-09-17] MEDS: Furosemide 20 MG Tab PO SCH ×2 (07:30→11:23)
[2021-09-17] MEDS: Fludrocortisone 0.1 MG Tab PO SCH ×2 (07:30→19:33)
[2021-09-17] MEDS: Potassium Chloride 20 MEQ Tab.ER PO SCH ×4 (07:30→19:33)
[2021-09-17] MEDS: BUPROPION 300 MG PO SCH (19:34)
[2021-09-17] MEDS: LEVOTHYROXINE 137 MCG PO SCH (19:34)
[2021-09-17] MEDS: Simvastatin 10 MG Tab PO SCH (19:35)
[2021-09-18] MEDS: Furosemide 20 MG Tab PO SCH ×2 (08:03→12:30)
[2021-09-18] MEDS: Citalopram 20 MG Tab PO SCH (08:04)
[2021-09-18] MEDS: Fludrocortisone 0.1 MG Tab PO SCH ×2 (08:04→19:48)
[2021-09-18] MEDS: Potassium Chloride 20 MEQ Tab.ER PO SCH ×4 (08:04→19:49)
[2021-09-18] MEDS: Albuterol/Ipratropium 3.0-0.5 MG/3 ML Neb Soln NEB SCH ×2 (08:04→19:48)
[2021-09-18] MEDS: Docusate Sodium 100 MG Cap PO SCH ×2 (08:05→17:14)
[2021-09-18] MEDS: Niacin 500 MG Tab PO SCH ×2 (08:05→17:15)
[2021-09-18] MEDS: Calcium Carbonate 750 MG Tab.Chew PO SCH (08:06)
[2021-09-18] MEDS: Cyanocobalamin (Vitamin B12) 1,000 MCG Tab PO SCH (08:06)
[2021-09-18] MEDS: Cholecalciferol (Vitamin D3) 25 MCG Tab PO SCH (08:07)
[2021-09-18] MEDS: traMADol 50 MG Tab PO PRN (08:08)
[2021-09-18] MEDS: Acetaminophen 500 MG Tab PO SCH ×3 (08:09→19:50)
[2021-09-18] MEDS: Simvastatin 10 MG Tab PO SCH (19:49)
[2021-09-18] MEDS: BUPROPION 300 MG PO SCH (19:49)
[2021-09-18] MEDS: LEVOTHYROXINE 137 MCG PO SCH (19:49)
[2021-09-18] MEDS: Menthol 10%/Methyl Salicylate 30% 85 GM Tube TOP PRN (19:50)
[2021-09-19] MEDS: traMADol 50 MG Tab PO PRN (04:56)
[2021-09-19] MEDS: Albuterol/Ipratropium 3.0-0.5 MG/3 ML Neb Soln NEB SCH ×2 (07:56→19:20)
[2021-09-19] MEDS: Potassium Chloride 20 MEQ Tab.ER PO SCH ×4 (07:57→19:21)
[2021-09-19] MEDS: Furosemide 20 MG Tab PO SCH ×2 (07:57→12:35)
[2021-09-19] MEDS: Fludrocortisone 0.1 MG Tab PO SCH ×2 (07:58→19:21)
[2021-09-19] MEDS: Citalopram 20 MG Tab PO SCH (07:58)
[2021-09-19] MEDS: Docusate Sodium 100 MG Cap PO SCH ×2 (07:59→17:32)
[2021-09-19] MEDS: Niacin 500 MG Tab PO SCH ×2 (07:59→17:33)
[2021-09-19] MEDS: Calcium Carbonate 750 MG Tab.Chew PO SCH (08:00)
[2021-09-19] MEDS: Acetaminophen 500 MG Tab PO SCH ×3 (08:01→19:22)
[2021-09-19] MEDS: Cyanocobalamin (Vitamin B12) 1,000 MCG Tab PO SCH (08:02)
[2021-09-19] MEDS: Cholecalciferol (Vitamin D3) 25 MCG Tab PO SCH (08:03)
[2021-09-19] MEDS: LEVOTHYROXINE 137 MCG PO SCH (19:20)
[2021-09-19] MEDS: BUPROPION 300 MG PO SCH (19:21)
[2021-09-19] MEDS: Simvastatin 10 MG Tab PO SCH (19:21)
[2021-09-19] MEDS: Menthol 10%/Methyl Salicylate 30% 85 GM Tube TOP PRN (19:24)
[2021-09-20] MEDS: Citalopram 20 MG Tab PO SCH (08:32)
[2021-09-20] MEDS: Potassium Chloride 20 MEQ Tab.ER PO SCH ×4 (08:32→19:59)
[2021-09-20] MEDS: Fludrocortisone 0.1 MG Tab PO SCH ×2 (08:32→19:59)
[2021-09-20] MEDS: Furosemide 20 MG Tab PO SCH ×2 (08:32→12:20)
[2021-09-20] MEDS: Docusate Sodium 100 MG Cap PO SCH ×2 (08:33→17:51)
[2021-09-20] MEDS: Albuterol/Ipratropium 3.0-0.5 MG/3 ML Neb Soln NEB SCH ×2 (08:34→19:55)
[2021-09-20] MEDS: Niacin 500 MG Tab PO SCH ×2 (08:34→17:52)
[2021-09-20] MEDS: Cyanocobalamin (Vitamin B12) 1,000 MCG Tab PO SCH (08:35)
[2021-09-20] MEDS: Calcium Carbonate 750 MG Tab.Chew PO SCH (08:35)
[2021-09-20] MEDS: Acetaminophen 500 MG Tab PO SCH ×3 (08:36→20:00)
[2021-09-20] MEDS: Cholecalciferol (Vitamin D3) 25 MCG Tab PO SCH (08:36)
[2021-09-20] MEDS: Bisacodyl 5 MG Tab PO PRN (08:37)
[2021-09-20] MEDS: traMADol 50 MG Tab PO PRN (16:27)
[2021-09-20] MEDS: LEVOTHYROXINE 137 MCG PO SCH (20:00)
[2021-09-20] MEDS: BUPROPION 300 MG PO SCH (20:00)
[2021-09-20] MEDS: Simvastatin 10 MG Tab PO SCH (20:01)
[2021-09-21] MEDS: Albuterol/Ipratropium 3.0-0.5 MG/3 ML Neb Soln NEB SCH ×2 (07:29→19:34)
[2021-09-21] MEDS: Docusate Sodium 100 MG Cap PO SCH ×2 (07:30→17:11)
[2021-09-21] MEDS: Fludrocortisone 0.1 MG Tab PO SCH ×2 (07:30→19:34)
[2021-09-21] MEDS: Citalopram 20 MG Tab PO SCH (07:30)
[2021-09-21] MEDS: Potassium Chloride 20 MEQ Tab.ER PO SCH ×4 (07:31→19:34)
[2021-09-21] MEDS: Furosemide 20 MG Tab PO SCH ×2 (07:31→11:08)
[2021-09-21] MEDS: Niacin 500 MG Tab PO SCH ×2 (07:32→17:11)
[2021-09-21] MEDS: Acetaminophen 500 MG Tab PO SCH ×3 (07:32→19:35)
[2021-09-21] MEDS: Calcium Carbonate 750 MG Tab.Chew PO SCH (07:32)
[2021-09-21] MEDS: Cyanocobalamin (Vitamin B12) 1,000 MCG Tab PO SCH (07:33)
[2021-09-21] MEDS: Cholecalciferol (Vitamin D3) 25 MCG Tab PO SCH (07:33)
[2021-09-21] MEDS: Bisacodyl 5 MG Tab PO PRN (11:10)
[2021-09-21] MEDS: LEVOTHYROXINE 137 MCG PO SCH (19:34)
[2021-09-21] MEDS: Simvastatin 10 MG Tab PO SCH (19:34)
[2021-09-21] MEDS: BUPROPION 300 MG PO SCH (19:34)
[2021-09-21] MEDS: Menthol 10%/Methyl Salicylate 30% 85 GM Tube TOP PRN (19:36)
[2021-09-22] MEDS: Albuterol/Ipratropium 3.0-0.5 MG/3 ML Neb Soln NEB SCH ×2 (07:30→19:14)
[2021-09-22] MEDS: Calcium Carbonate 750 MG Tab.Chew PO SCH (07:31)
[2021-09-22] MEDS: Citalopram 20 MG Tab PO SCH (07:32)
[2021-09-22] MEDS: Fludrocortisone 0.1 MG Tab PO SCH ×2 (07:32→19:16)
[2021-09-22] MEDS: Potassium Chloride 20 MEQ Tab.ER PO SCH ×4 (07:32→19:14)
[2021-09-22] MEDS: Docusate Sodium 100 MG Cap PO SCH ×2 (07:32→17:11)
[2021-09-22] MEDS: Niacin 500 MG Tab PO SCH ×2 (07:33→17:11)
[2021-09-22] MEDS: Furosemide 20 MG Tab PO SCH ×2 (07:33→11:20)
[2021-09-22] MEDS: Acetaminophen 500 MG Tab PO SCH ×3 (07:34→19:16)
[2021-09-22] MEDS: Cholecalciferol (Vitamin D3) 25 MCG Tab PO SCH (07:34)
[2021-09-22] MEDS: Cyanocobalamin (Vitamin B12) 1,000 MCG Tab PO SCH (07:34)
[2021-09-22] MEDS: BUPROPION 300 MG PO SCH (19:15)
[2021-09-22] MEDS: LEVOTHYROXINE 137 MCG PO SCH (19:15)
[2021-09-22] MEDS: Simvastatin 10 MG Tab PO SCH (19:16)
[2021-09-22] MEDS: traMADol 50 MG Tab PO PRN (23:57)
[2021-09-23] MEDS: Fludrocortisone 0.1 MG Tab PO SCH ×2 (07:31→19:14)
[2021-09-23] MEDS: Docusate Sodium 100 MG Cap PO SCH ×2 (07:31→17:16)
[2021-09-23] MEDS: Furosemide 20 MG Tab PO SCH ×2 (07:31→11:12)
[2021-09-23] MEDS: Potassium Chloride 20 MEQ Tab.ER PO SCH ×4 (07:31→19:14)
[2021-09-23] MEDS: Albuterol/Ipratropium 3.0-0.5 MG/3 ML Neb Soln NEB SCH ×2 (07:31→19:14)
[2021-09-23] MEDS: Citalopram 20 MG Tab PO SCH (07:31)
[2021-09-23] MEDS: Calcium Carbonate 750 MG Tab.Chew PO SCH (07:32)
[2021-09-23] MEDS: Niacin 500 MG Tab PO SCH ×2 (07:32→17:16)
[2021-09-23] MEDS: Acetaminophen 500 MG Tab PO SCH ×3 (07:32→19:15)
[2021-09-23] MEDS: Cholecalciferol (Vitamin D3) 25 MCG Tab PO SCH (07:33)
[2021-09-23] MEDS: Cyanocobalamin (Vitamin B12) 1,000 MCG Tab PO SCH (07:33)
[2021-09-23] MEDS: BUPROPION 300 MG PO SCH (19:14)
[2021-09-23] MEDS: LEVOTHYROXINE 137 MCG PO SCH (19:14)
[2021-09-23] MEDS: Simvastatin 10 MG Tab PO SCH (19:14)
[2021-09-24] MEDS: Albuterol/Ipratropium 3.0-0.5 MG/3 ML Neb Soln NEB SCH ×2 (07:09→19:49)
[2021-09-24] MEDS: Docusate Sodium 100 MG Cap PO SCH ×2 (07:09→17:12)
[2021-09-24] MEDS: Fludrocortisone 0.1 MG Tab PO SCH ×2 (07:09→19:51)
[2021-09-24] MEDS: Furosemide 20 MG Tab PO SCH ×2 (07:09→11:15)
[2021-09-24] MEDS: Citalopram 20 MG Tab PO SCH (07:09)
[2021-09-24] MEDS: Potassium Chloride 20 MEQ Tab.ER PO SCH ×4 (07:09→19:52)
[2021-09-24] MEDS: Niacin 500 MG Tab PO SCH ×2 (07:10→17:12)
[2021-09-24] MEDS: Acetaminophen 500 MG Tab PO SCH ×3 (07:10→19:52)
[2021-09-24] MEDS: Calcium Carbonate 750 MG Tab.Chew PO SCH (07:10)
[2021-09-24] MEDS: Cyanocobalamin (Vitamin B12) 1,000 MCG Tab PO SCH (07:11)
[2021-09-24] MEDS: Cholecalciferol (Vitamin D3) 25 MCG Tab PO SCH (07:11)
[2021-09-24] MEDS: BUPROPION 300 MG PO SCH (19:52)
[2021-09-24] MEDS: LEVOTHYROXINE 137 MCG PO SCH (19:52)
[2021-09-24] MEDS: Simvastatin 10 MG Tab PO SCH (19:53)
[2021-09-25] MEDS: Fludrocortisone 0.1 MG Tab PO SCH ×2 (08:41→19:14)
[2021-09-25] MEDS: Citalopram 20 MG Tab PO SCH (08:41)
[2021-09-25] MEDS: Potassium Chloride 20 MEQ Tab.ER PO SCH ×4 (08:41→19:10)
[2021-09-25] MEDS: Docusate Sodium 100 MG Cap PO SCH ×2 (08:42→18:01)
[2021-09-25] MEDS: Furosemide 20 MG Tab PO SCH ×2 (08:42→12:23)
[2021-09-25] MEDS: Acetaminophen 500 MG Tab PO SCH ×3 (08:43→19:11)
[2021-09-25] MEDS: Calcium Carbonate 750 MG Tab.Chew PO SCH (08:43)
[2021-09-25] MEDS: Niacin 500 MG Tab PO SCH ×2 (08:43→18:01)
[2021-09-25] MEDS: Albuterol/Ipratropium 3.0-0.5 MG/3 ML Neb Soln NEB SCH ×2 (08:43→19:10)
[2021-09-25] MEDS: Cholecalciferol (Vitamin D3) 25 MCG Tab PO SCH (08:44)
[2021-09-25] MEDS: Cyanocobalamin (Vitamin B12) 1,000 MCG Tab PO SCH (08:44)
[2021-09-25] MEDS: Simvastatin 10 MG Tab PO SCH (19:11)
[2021-09-25] MEDS: BUPROPION 300 MG PO SCH (19:11)
[2021-09-25] MEDS: LEVOTHYROXINE 137 MCG PO SCH (19:11)
[2021-09-26] MEDS: Potassium Chloride 20 MEQ Tab.ER PO SCH ×4 (08:34→20:04)
[2021-09-26] MEDS: Furosemide 20 MG Tab PO SCH ×2 (08:34→12:10)
[2021-09-26] MEDS: Citalopram 20 MG Tab PO SCH (08:35)
[2021-09-26] MEDS: Fludrocortisone 0.1 MG Tab PO SCH ×2 (08:35→20:04)
[2021-09-26] MEDS: Docusate Sodium 100 MG Cap PO SCH ×2 (08:36→17:10)
[2021-09-26] MEDS: Niacin 500 MG Tab PO SCH ×2 (08:37→17:11)
[2021-09-26] MEDS: Albuterol/Ipratropium 3.0-0.5 MG/3 ML Neb Soln NEB SCH ×2 (08:37→20:03)
[2021-09-26] MEDS: Calcium Carbonate 750 MG Tab.Chew PO SCH (08:38)
[2021-09-26] MEDS: Acetaminophen 500 MG Tab PO SCH ×3 (08:39→20:05)
[2021-09-26] MEDS: Cyanocobalamin (Vitamin B12) 1,000 MCG Tab PO SCH (08:40)
[2021-09-26] MEDS: Cholecalciferol (Vitamin D3) 25 MCG Tab PO SCH (08:41)
[2021-09-26] MEDS: BUPROPION 300 MG PO SCH (20:04)
[2021-09-26] MEDS: LEVOTHYROXINE 137 MCG PO SCH (20:04)
[2021-09-26] MEDS: Simvastatin 10 MG Tab PO SCH (20:04)
[2021-09-26] MEDS: Menthol 10%/Methyl Salicylate 30% 85 GM Tube TOP PRN (20:06)
[2021-09-27] MEDS: Fludrocortisone 0.1 MG Tab PO SCH ×2 (08:28→19:32)
[2021-09-27] MEDS: Furosemide 20 MG Tab PO SCH ×2 (08:28→11:21)
[2021-09-27] MEDS: Potassium Chloride 20 MEQ Tab.ER PO SCH ×4 (08:29→19:33)
[2021-09-27] MEDS: Citalopram 20 MG Tab PO SCH (08:29)
[2021-09-27] MEDS: Docusate Sodium 100 MG Cap PO SCH ×2 (08:30→17:10)
[2021-09-27] MEDS: Albuterol/Ipratropium 3.0-0.5 MG/3 ML Neb Soln NEB SCH ×2 (08:30→19:29)
[2021-09-27] MEDS: Calcium Carbonate 750 MG Tab.Chew PO SCH (08:31)
[2021-09-27] MEDS: Niacin 500 MG Tab PO SCH ×2 (08:31→17:10)
[2021-09-27] MEDS: Acetaminophen 500 MG Tab PO SCH ×3 (08:31→19:34)
[2021-09-27] MEDS: Cholecalciferol (Vitamin D3) 25 MCG Tab PO SCH (08:33)
[2021-09-27] MEDS: Cyanocobalamin (Vitamin B12) 1,000 MCG Tab PO SCH (08:33)
[2021-09-27] MEDS: Bisacodyl 5 MG Tab PO PRN (10:05)
[2021-09-27] MEDS: LEVOTHYROXINE 137 MCG PO SCH (19:33)
[2021-09-27] MEDS: BUPROPION 300 MG PO SCH (19:33)
[2021-09-27] MEDS: Simvastatin 10 MG Tab PO SCH (19:35)
[2021-09-28] MEDS: Potassium Chloride 20 MEQ Tab.ER PO SCH ×4 (08:31→19:31)
[2021-09-28] MEDS: Docusate Sodium 100 MG Cap PO SCH ×2 (08:31→17:15)
[2021-09-28] MEDS: Citalopram 20 MG Tab PO SCH (08:31)
[2021-09-28] MEDS: Fludrocortisone 0.1 MG Tab PO SCH ×2 (08:31→19:31)
[2021-09-28] MEDS: Furosemide 20 MG Tab PO SCH ×2 (08:31→12:02)
[2021-09-28] MEDS: Albuterol/Ipratropium 3.0-0.5 MG/3 ML Neb Soln NEB SCH ×2 (08:32→19:31)
[2021-09-28] MEDS: Niacin 500 MG Tab PO SCH ×2 (08:35→17:15)
[2021-09-28] MEDS: Calcium Carbonate 750 MG Tab.Chew PO SCH (08:36)
[2021-09-28] MEDS: Acetaminophen 500 MG Tab PO SCH ×3 (08:38→19:32)
[2021-09-28] MEDS: Cyanocobalamin (Vitamin B12) 1,000 MCG Tab PO SCH (08:39)
[2021-09-28] MEDS: Cholecalciferol (Vitamin D3) 25 MCG Tab PO SCH (08:40)
[2021-09-28] MEDS ORDERED: COVID-19 VACC,MRNA(MODERNA)/PF 100 MCG/0.5 mL - 7.5 mL MDV IM ONE (10:30)
[2021-09-28] MEDS: BUPROPION 300 MG PO SCH (19:32)
[2021-09-28] MEDS: LEVOTHYROXINE 137 MCG PO SCH (19:32)
[2021-09-28] MEDS: Simvastatin 10 MG Tab PO SCH (19:32)
[2021-09-28] MEDS: Menthol 10%/Methyl Salicylate 30% 85 GM Tube TOP PRN (19:34)
[2021-09-29] MEDS: traMADol 50 MG Tab PO PRN (06:11)
[2021-09-29] MEDS: Albuterol/Ipratropium 3.0-0.5 MG/3 ML Neb Soln NEB SCH ×2 (07:17→19:32)
[2021-09-29] MEDS: Calcium Carbonate 750 MG Tab.Chew PO SCH (07:18)
[2021-09-29] MEDS: Citalopram 20 MG Tab PO SCH (07:18)
[2021-09-29] MEDS: Fludrocortisone 0.1 MG Tab PO SCH ×2 (07:19→19:32)
[2021-09-29] MEDS: Potassium Chloride 20 MEQ Tab.ER PO SCH ×4 (07:19→19:32)
[2021-09-29] MEDS: Furosemide 20 MG Tab PO SCH ×2 (07:19→11:01)
[2021-09-29] MEDS: Docusate Sodium 100 MG Cap PO SCH ×2 (07:20→17:01)
[2021-09-29] MEDS: Niacin 500 MG Tab PO SCH ×2 (07:20→17:01)
[2021-09-29] MEDS: Acetaminophen 500 MG Tab PO SCH ×3 (07:20→19:33)
[2021-09-29] MEDS: Cholecalciferol (Vitamin D3) 25 MCG Tab PO SCH (07:21)
[2021-09-29] MEDS: Cyanocobalamin (Vitamin B12) 1,000 MCG Tab PO SCH (07:21)
[2021-09-29] MEDS: LEVOTHYROXINE 137 MCG PO SCH (19:32)
[2021-09-29] MEDS: BUPROPION 300 MG PO SCH (19:32)
[2021-09-29] MEDS: Simvastatin 10 MG Tab PO SCH (19:32)
[2021-09-29] MEDS: Menthol 10%/Methyl Salicylate 30% 85 GM Tube TOP PRN (19:35)
[2021-09-30] MEDS: Citalopram 20 MG Tab PO SCH (08:08)
[2021-09-30] MEDS: Potassium Chloride 20 MEQ Tab.ER PO SCH ×4 (08:09→19:45)
[2021-09-30] MEDS: Furosemide 20 MG Tab PO SCH ×2 (08:09→12:01)
[2021-09-30] MEDS: Fludrocortisone 0.1 MG Tab PO SCH ×2 (08:09→19:45)
[2021-09-30] MEDS: Docusate Sodium 100 MG Cap PO SCH ×2 (08:10→17:02)
[2021-09-30] MEDS: Niacin 500 MG Tab PO SCH ×2 (08:11→17:03)
[2021-09-30] MEDS: Calcium Carbonate 750 MG Tab.Chew PO SCH (08:11)
[2021-09-30] MEDS: Albuterol/Ipratropium 3.0-0.5 MG/3 ML Neb Soln NEB SCH ×2 (08:11→19:44)
[2021-09-30] MEDS: Acetaminophen 500 MG Tab PO SCH ×3 (08:12→19:46)
[2021-09-30] MEDS: Cyanocobalamin (Vitamin B12) 1,000 MCG Tab PO SCH (08:13)
[2021-09-30] MEDS: Cholecalciferol (Vitamin D3) 25 MCG Tab PO SCH (08:13)
[2021-09-30] MEDS: LEVOTHYROXINE 137 MCG PO SCH (19:45)
[2021-09-30] MEDS: BUPROPION 300 MG PO SCH (19:45)
[2021-09-30] MEDS: Simvastatin 10 MG Tab PO SCH (19:46)
[2021-09-30] MEDS: Menthol 10%/Methyl Salicylate 30% 85 GM Tube TOP PRN (19:49)
[2021-10-01] MEDS: traMADol 50 MG Tab PO PRN (08:06)
[2021-10-01] MEDS: Citalopram 20 MG Tab PO SCH (08:06)
[2021-10-01] MEDS: Furosemide 20 MG Tab PO SCH ×2 (08:07→11:07)
[2021-10-01] MEDS: Docusate Sodium 100 MG Cap PO SCH ×2 (08:07→17:13)
[2021-10-01] MEDS: Potassium Chloride 20 MEQ Tab.ER PO SCH ×4 (08:07→19:39)
[2021-10-01] MEDS: Fludrocortisone 0.1 MG Tab PO SCH ×2 (08:07→19:39)
[2021-10-01] MEDS: Albuterol/Ipratropium 3.0-0.5 MG/3 ML Neb Soln NEB SCH ×2 (08:07→19:39)
[2021-10-01] MEDS: Niacin 500 MG Tab PO SCH ×2 (08:08→17:13)
[2021-10-01] MEDS: Acetaminophen 500 MG Tab PO SCH ×3 (08:08→19:40)
[2021-10-01] MEDS: Calcium Carbonate 750 MG Tab.Chew PO SCH (08:08)
[2021-10-01] MEDS: Cholecalciferol (Vitamin D3) 25 MCG Tab PO SCH (08:09)
[2021-10-01] MEDS: Cyanocobalamin (Vitamin B12) 1,000 MCG Tab PO SCH (08:09)
[2021-10-01] MEDS: LEVOTHYROXINE 137 MCG PO SCH (19:39)
[2021-10-01] MEDS: Simvastatin 10 MG Tab PO SCH (19:40)
[2021-10-01] MEDS: BUPROPION 300 MG PO SCH (19:40)
[2021-10-01] MEDS: Menthol 10%/Methyl Salicylate 30% 85 GM Tube TOP PRN (19:42)
[2021-10-02] MEDS: traMADol 50 MG Tab PO PRN (07:37)
[2021-10-02] MEDS: Docusate Sodium 100 MG Cap PO SCH ×2 (07:38→17:09)
[2021-10-02] MEDS: Citalopram 20 MG Tab PO SCH (07:38)
[2021-10-02] MEDS: Potassium Chloride 20 MEQ Tab.ER PO SCH ×4 (07:39→19:32)
[2021-10-02] MEDS: Furosemide 20 MG Tab PO SCH ×2 (07:39→11:10)
[2021-10-02] MEDS: Fludrocortisone 0.1 MG Tab PO SCH ×2 (07:39→19:31)
[2021-10-02] MEDS: Albuterol/Ipratropium 3.0-0.5 MG/3 ML Neb Soln NEB SCH ×2 (07:39→19:31)
[2021-10-02] MEDS: Niacin 500 MG Tab PO SCH ×2 (07:40→17:09)
[2021-10-02] MEDS: Acetaminophen 500 MG Tab PO SCH ×3 (07:40→19:33)
[2021-10-02] MEDS: Calcium Carbonate 750 MG Tab.Chew PO SCH (07:40)
[2021-10-02] MEDS: Cyanocobalamin (Vitamin B12) 1,000 MCG Tab PO SCH (07:41)
[2021-10-02] MEDS: Cholecalciferol (Vitamin D3) 25 MCG Tab PO SCH (07:41)
[2021-10-02] MEDS: LEVOTHYROXINE 137 MCG PO SCH (19:32)
[2021-10-02] MEDS: Simvastatin 10 MG Tab PO SCH (19:32)
[2021-10-02] MEDS: BUPROPION 300 MG PO SCH (19:32)
[2021-10-03] MEDS: traMADol 50 MG Tab PO PRN (07:17)
[2021-10-03] MEDS: Citalopram 20 MG Tab PO SCH (07:18)
[2021-10-03] MEDS: Albuterol/Ipratropium 3.0-0.5 MG/3 ML Neb Soln NEB SCH ×2 (07:18→19:46)
[2021-10-03] MEDS: Docusate Sodium 100 MG Cap PO SCH ×2 (07:18→17:08)
[2021-10-03] MEDS: Potassium Chloride 20 MEQ Tab.ER PO SCH ×4 (07:19→19:47)
[2021-10-03] MEDS: Fludrocortisone 0.1 MG Tab PO SCH ×2 (07:19→19:46)
[2021-10-03] MEDS: Furosemide 20 MG Tab PO SCH ×2 (07:19→11:37)
[2021-10-03] MEDS: Acetaminophen 500 MG Tab PO SCH ×3 (07:20→19:47)
[2021-10-03] MEDS: Calcium Carbonate 750 MG Tab.Chew PO SCH (07:20)
[2021-10-03] MEDS: Niacin 500 MG Tab PO SCH ×2 (07:20→17:08)
[2021-10-03] MEDS: Cholecalciferol (Vitamin D3) 25 MCG Tab PO SCH (07:21)
[2021-10-03] MEDS: Cyanocobalamin (Vitamin B12) 1,000 MCG Tab PO SCH (07:21)
[2021-10-03] MEDS: Simvastatin 10 MG Tab PO SCH (19:47)
[2021-10-03] MEDS: BUPROPION 300 MG PO SCH (19:47)
[2021-10-03] MEDS: LEVOTHYROXINE 137 MCG PO SCH (19:47)
[2021-10-03] MEDS: Menthol 10%/Methyl Salicylate 30% 85 GM Tube TOP PRN (19:49)
[2021-10-04] MEDS: Fludrocortisone 0.1 MG Tab PO SCH ×2 (08:39→19:57)
[2021-10-04] MEDS: Citalopram 20 MG Tab PO SCH (08:39)
[2021-10-04] MEDS: Potassium Chloride 20 MEQ Tab.ER PO SCH ×4 (08:39→19:58)
[2021-10-04] MEDS: Docusate Sodium 100 MG Cap PO SCH ×2 (08:40→17:44)
[2021-10-04] MEDS: Furosemide 20 MG Tab PO SCH ×2 (08:40→12:03)
[2021-10-04] MEDS: Calcium Carbonate 750 MG Tab.Chew PO SCH (08:41)
[2021-10-04] MEDS: Niacin 500 MG Tab PO SCH ×2 (08:41→17:44)
[2021-10-04] MEDS: Albuterol/Ipratropium 3.0-0.5 MG/3 ML Neb Soln NEB SCH ×2 (08:41→19:57)
[2021-10-04] MEDS: Acetaminophen 500 MG Tab PO SCH ×3 (08:42→19:59)
[2021-10-04] MEDS: Cyanocobalamin (Vitamin B12) 1,000 MCG Tab PO SCH (08:42)
[2021-10-04] MEDS: Cholecalciferol (Vitamin D3) 25 MCG Tab PO SCH (08:42)
[2021-10-04] MEDS: LEVOTHYROXINE 137 MCG PO SCH (19:58)
[2021-10-04] MEDS: Simvastatin 10 MG Tab PO SCH (19:58)
[2021-10-04] MEDS: BUPROPION 300 MG PO SCH (19:58)
[2021-10-04] MEDS: Menthol 10%/Methyl Salicylate 30% 85 GM Tube TOP PRN (19:59)
[2021-10-05] MEDS: Citalopram 20 MG Tab PO SCH (08:17)
[2021-10-05] MEDS: Potassium Chloride 20 MEQ Tab.ER PO SCH ×4 (08:17→19:49)
[2021-10-05] MEDS: traMADol 50 MG Tab PO PRN (08:18)
[2021-10-05] MEDS: Furosemide 20 MG Tab PO SCH ×2 (08:18→12:45)
[2021-10-05] MEDS: Fludrocortisone 0.1 MG Tab PO SCH ×2 (08:18→19:48)
[2021-10-05] MEDS: Docusate Sodium 100 MG Cap PO SCH ×2 (08:19→17:37)
[2021-10-05] MEDS: Niacin 500 MG Tab PO SCH ×2 (08:20→17:37)
[2021-10-05] MEDS: Calcium Carbonate 750 MG Tab.Chew PO SCH (08:20)
[2021-10-05] MEDS: Acetaminophen 500 MG Tab PO SCH ×3 (08:20→19:50)
[2021-10-05] MEDS: Albuterol/Ipratropium 3.0-0.5 MG/3 ML Neb Soln NEB SCH ×2 (08:20→19:46)
[2021-10-05] MEDS: Cholecalciferol (Vitamin D3) 25 MCG Tab PO SCH (08:21)
[2021-10-05] MEDS: Cyanocobalamin (Vitamin B12) 1,000 MCG Tab PO SCH (08:21)
[2021-10-05] MEDS: LEVOTHYROXINE 137 MCG PO SCH (19:49)
[2021-10-05] MEDS: BUPROPION 300 MG PO SCH (19:49)
[2021-10-05] MEDS: Simvastatin 10 MG Tab PO SCH (19:50)
[2021-10-06] MEDS: Potassium Chloride 20 MEQ Tab.ER PO SCH ×4 (08:29→19:38)
[2021-10-06] MEDS: Citalopram 20 MG Tab PO SCH (08:29)
[2021-10-06] MEDS: Furosemide 20 MG Tab PO SCH ×2 (08:30→12:16)
[2021-10-06] MEDS: Fludrocortisone 0.1 MG Tab PO SCH ×2 (08:30→19:37)
[2021-10-06] MEDS: Albuterol/Ipratropium 3.0-0.5 MG/3 ML Neb Soln NEB SCH ×2 (08:30→19:34)
[2021-10-06] MEDS: Docusate Sodium 100 MG Cap PO SCH ×2 (08:30→17:43)
[2021-10-06] MEDS: Niacin 500 MG Tab PO SCH ×2 (08:31→17:43)
[2021-10-06] MEDS: Acetaminophen 500 MG Tab PO SCH ×3 (08:31→19:39)
[2021-10-06] MEDS: Calcium Carbonate 750 MG Tab.Chew PO SCH (08:32)
[2021-10-06] MEDS: Cholecalciferol (Vitamin D3) 25 MCG Tab PO SCH (08:32)
[2021-10-06] MEDS: Cyanocobalamin (Vitamin B12) 1,000 MCG Tab PO SCH (08:33)
[2021-10-06] MEDS: BUPROPION 300 MG PO SCH (19:38)
[2021-10-06] MEDS: LEVOTHYROXINE 137 MCG PO SCH (19:38)
[2021-10-06] MEDS: Simvastatin 10 MG Tab PO SCH (19:39)
[2021-10-07] MEDS: Citalopram 20 MG Tab PO SCH (08:58)
[2021-10-07] MEDS: Potassium Chloride 20 MEQ Tab.ER PO SCH ×4 (08:58→20:03)
[2021-10-07] MEDS: Albuterol/Ipratropium 3.0-0.5 MG/3 ML Neb Soln NEB SCH ×2 (08:59→19:57)
[2021-10-07] MEDS: Furosemide 20 MG Tab PO SCH ×2 (08:59→12:21)
[2021-10-07] MEDS: Docusate Sodium 100 MG Cap PO SCH ×2 (08:59→17:48)
[2021-10-07] MEDS: Fludrocortisone 0.1 MG Tab PO SCH ×2 (08:59→20:03)
[2021-10-07] MEDS: Calcium Carbonate 750 MG Tab.Chew PO SCH (09:00)
[2021-10-07] MEDS: Acetaminophen 500 MG Tab PO SCH ×3 (09:00→20:04)
[2021-10-07] MEDS: Niacin 500 MG Tab PO SCH ×2 (09:00→17:48)
[2021-10-07] MEDS: Cholecalciferol (Vitamin D3) 25 MCG Tab PO SCH (09:01)
[2021-10-07] MEDS: Cyanocobalamin (Vitamin B12) 1,000 MCG Tab PO SCH (09:01)
[2021-10-07] MEDS: traMADol 50 MG Tab PO PRN (09:02)
[2021-10-07] MEDS: BUPROPION 300 MG PO SCH (20:04)
[2021-10-07] MEDS: LEVOTHYROXINE 137 MCG PO SCH (20:04)
[2021-10-07] MEDS: Simvastatin 10 MG Tab PO SCH (20:05)
[2021-10-08] MEDS: Albuterol/Ipratropium 3.0-0.5 MG/3 ML Neb Soln NEB SCH ×2 (07:12→19:41)
[2021-10-08] MEDS: traMADol 50 MG Tab PO PRN (07:14)
[2021-10-08] MEDS: Potassium Chloride 20 MEQ Tab.ER PO SCH ×4 (07:15→19:42)
[2021-10-08] MEDS: Docusate Sodium 100 MG Cap PO SCH ×2 (07:15→17:15)
[2021-10-08] MEDS: Fludrocortisone 0.1 MG Tab PO SCH ×2 (07:15→19:42)
[2021-10-08] MEDS: Citalopram 20 MG Tab PO SCH (07:15)
[2021-10-08] MEDS: Furosemide 20 MG Tab PO SCH ×2 (07:16→11:06)
[2021-10-08] MEDS: Niacin 500 MG Tab PO SCH ×2 (07:16→17:15)
[2021-10-08] MEDS: Calcium Carbonate 750 MG Tab.Chew PO SCH (07:17)
[2021-10-08] MEDS: Acetaminophen 500 MG Tab PO SCH ×3 (07:17→19:43)
[2021-10-08] MEDS: Cholecalciferol (Vitamin D3) 25 MCG Tab PO SCH (07:18)
[2021-10-08] MEDS: Cyanocobalamin (Vitamin B12) 1,000 MCG Tab PO SCH (07:18)
[2021-10-08] MEDS: BUPROPION 300 MG PO SCH (19:42)
[2021-10-08] MEDS: LEVOTHYROXINE 137 MCG PO SCH (19:42)
[2021-10-08] MEDS: Simvastatin 10 MG Tab PO SCH (19:43)
[2021-10-08] MEDS: Menthol 10%/Methyl Salicylate 30% 85 GM Tube TOP PRN (19:46)
[2021-10-08] MEDS: Aluminum Hydroxide/Magnesium Hydroxide/Simethicone Susp 30 ML Cup PO PRN (20:00)
[2021-10-09] MEDS: Albuterol/Ipratropium 3.0-0.5 MG/3 ML Neb Soln NEB SCH ×2 (07:59→19:30)
[2021-10-09] MEDS: Calcium Carbonate 750 MG Tab.Chew PO SCH (07:59)
[2021-10-09] MEDS: Citalopram 20 MG Tab PO SCH (08:00)
[2021-10-09] MEDS: Docusate Sodium 100 MG Cap PO SCH ×2 (08:00→17:18)
[2021-10-09] MEDS: Furosemide 20 MG Tab PO SCH ×2 (08:01→11:46)
[2021-10-09] MEDS: Potassium Chloride 20 MEQ Tab.ER PO SCH ×4 (08:01→19:30)
[2021-10-09] MEDS: Fludrocortisone 0.1 MG Tab PO SCH ×2 (08:01→19:30)
[2021-10-09] MEDS: Niacin 500 MG Tab PO SCH ×2 (08:02→17:19)
[2021-10-09] MEDS: Acetaminophen 500 MG Tab PO SCH ×3 (08:02→19:32)
[2021-10-09] MEDS: traMADol 50 MG Tab PO PRN (08:03)
[2021-10-09] MEDS: Cyanocobalamin (Vitamin B12) 1,000 MCG Tab PO SCH (08:04)
[2021-10-09] MEDS: Cholecalciferol (Vitamin D3) 25 MCG Tab PO SCH (08:04)
[2021-10-09] MEDS: Simvastatin 10 MG Tab PO SCH (19:31)
[2021-10-09] MEDS: BUPROPION 300 MG PO SCH (19:31)
[2021-10-09] MEDS: LEVOTHYROXINE 137 MCG PO SCH (19:31)
[2021-10-09] MEDS: Menthol 10%/Methyl Salicylate 30% 85 GM Tube TOP PRN (19:32)
[2021-10-10] MEDS: traMADol 50 MG Tab PO PRN ×2 (00:12→19:45)
[2021-10-10] MEDS: Potassium Chloride 20 MEQ Tab.ER PO SCH ×4 (08:04→19:39)
[2021-10-10] MEDS: Fludrocortisone 0.1 MG Tab PO SCH ×2 (08:04→19:39)
[2021-10-10] MEDS: Niacin 500 MG Tab PO SCH ×2 (08:05→17:12)
[2021-10-10] MEDS: Calcium Carbonate 750 MG Tab.Chew PO SCH (08:05)
[2021-10-10] MEDS: Furosemide 20 MG Tab PO SCH ×2 (08:05→11:24)
[2021-10-10] MEDS: Acetaminophen 500 MG Tab PO SCH ×3 (08:06→19:41)
[2021-10-10] MEDS: Cyanocobalamin (Vitamin B12) 1,000 MCG Tab PO SCH (08:08)
[2021-10-10] MEDS: Cholecalciferol (Vitamin D3) 25 MCG Tab PO SCH (08:08)
[2021-10-10] MEDS: Citalopram 20 MG Tab PO SCH (08:10)
[2021-10-10] MEDS: Docusate Sodium 100 MG Cap PO SCH ×2 (08:10→17:12)
[2021-10-10] MEDS: Albuterol/Ipratropium 3.0-0.5 MG/3 ML Neb Soln NEB SCH ×2 (08:10→19:38)
[2021-10-10] MEDS: LEVOTHYROXINE 137 MCG PO SCH (19:40)
[2021-10-10] MEDS: Simvastatin 10 MG Tab PO SCH (19:40)
[2021-10-10] MEDS: BUPROPION 300 MG PO SCH (19:40)
[2021-10-11] MEDS: Cholecalciferol (Vitamin D3) 25 MCG Tab PO SCH (07:23)
[2021-10-11] MEDS: Calcium Carbonate 750 MG Tab.Chew PO SCH (07:23)
[2021-10-11] MEDS: Niacin 500 MG Tab PO SCH (07:23)
[2021-10-11] MEDS: Docusate Sodium 100 MG Cap PO SCH ×2 (07:23→17:00)
[2021-10-11] MEDS: Cyanocobalamin (Vitamin B12) 1,000 MCG Tab PO SCH (07:24)
[2021-10-11] MEDS: Acetaminophen 500 MG Tab PO SCH ×3 (07:24→20:05)
[2021-10-11] MEDS: Citalopram 20 MG Tab PO SCH (07:24)
[2021-10-11] MEDS: Potassium Chloride 20 MEQ Tab.ER PO SCH ×4 (07:25→20:04)
[2021-10-11] MEDS: Fludrocortisone 0.1 MG Tab PO SCH ×2 (07:25→20:04)
[2021-10-11] MEDS: Furosemide 20 MG Tab PO SCH ×2 (07:25→11:49)
[2021-10-11] MEDS: Albuterol/Ipratropium 3.0-0.5 MG/3 ML Neb Soln NEB SCH ×2 (07:26→19:59)
[2021-10-11] MEDS: LEVOTHYROXINE 137 MCG PO SCH (20:04)
[2021-10-11] MEDS: BUPROPION 300 MG PO SCH (20:04)
[2021-10-11] MEDS: Simvastatin 10 MG Tab PO SCH (20:06)
[2021-10-12] MEDS: Citalopram 20 MG Tab PO SCH (07:41)
[2021-10-12] MEDS: Albuterol/Ipratropium 3.0-0.5 MG/3 ML Neb Soln NEB SCH ×2 (07:41→19:22)
[2021-10-12] MEDS: Potassium Chloride 20 MEQ Tab.ER PO SCH ×4 (07:42→19:22)
[2021-10-12] MEDS: Docusate Sodium 100 MG Cap PO SCH ×2 (07:42→17:13)
[2021-10-12] MEDS: Furosemide 20 MG Tab PO SCH ×2 (07:42→11:01)
[2021-10-12] MEDS: Fludrocortisone 0.1 MG Tab PO SCH ×2 (07:42→19:22)
[2021-10-12] MEDS: Acetaminophen 500 MG Tab PO SCH ×3 (07:43→19:23)
[2021-10-12] MEDS: Calcium Carbonate 750 MG Tab.Chew PO SCH (07:43)
[2021-10-12] MEDS: Cholecalciferol (Vitamin D3) 25 MCG Tab PO SCH (07:44)
[2021-10-12] MEDS: Cyanocobalamin (Vitamin B12) 1,000 MCG Tab PO SCH (07:44)
[2021-10-12] MEDS: LEVOTHYROXINE 137 MCG PO SCH (19:23)
[2021-10-12] MEDS: BUPROPION 300 MG PO SCH (19:23)
[2021-10-12] MEDS: Simvastatin 10 MG Tab PO SCH (19:23)
[2021-10-13] MEDS: Calcium Carbonate 750 MG Tab.Chew PO SCH (07:27)
[2021-10-13] MEDS: traMADol 50 MG Tab PO PRN (07:27)
[2021-10-13] MEDS: Acetaminophen 500 MG Tab PO SCH ×3 (07:28→19:14)
[2021-10-13] MEDS: Docusate Sodium 100 MG Cap PO SCH ×2 (07:28→17:11)
[2021-10-13] MEDS: Albuterol/Ipratropium 3.0-0.5 MG/3 ML Neb Soln NEB SCH ×2 (07:28→19:14)
[2021-10-13] MEDS: Citalopram 20 MG Tab PO SCH (07:29)
[2021-10-13] MEDS: Potassium Chloride 20 MEQ Tab.ER PO SCH ×4 (07:29→19:14)
[2021-10-13] MEDS: Fludrocortisone 0.1 MG Tab PO SCH ×2 (07:29→19:14)
[2021-10-13] MEDS: Furosemide 20 MG Tab PO SCH ×2 (07:29→11:15)
[2021-10-13] MEDS: Cyanocobalamin (Vitamin B12) 1,000 MCG Tab PO SCH (07:30)
[2021-10-13] MEDS: Cholecalciferol (Vitamin D3) 25 MCG Tab PO SCH (07:30)
[2021-10-13] MEDS: Simvastatin 10 MG Tab PO SCH (19:14)
[2021-10-13] MEDS: BUPROPION 300 MG PO SCH (19:14)
[2021-10-13] MEDS: LEVOTHYROXINE 137 MCG PO SCH (19:14)
[2021-10-14] MEDS: traMADol 50 MG Tab PO PRN (07:27)
[2021-10-14] MEDS: Acetaminophen 500 MG Tab PO SCH ×3 (07:28→19:33)
[2021-10-14] MEDS: Cyanocobalamin (Vitamin B12) 1,000 MCG Tab PO SCH (07:28)
[2021-10-14] MEDS: Cholecalciferol (Vitamin D3) 25 MCG Tab PO SCH (07:28)
[2021-10-14] MEDS: Docusate Sodium 100 MG Cap PO SCH ×2 (07:29→17:09)
[2021-10-14] MEDS: Fludrocortisone 0.1 MG Tab PO SCH ×2 (07:29→19:31)
[2021-10-14] MEDS: Potassium Chloride 20 MEQ Tab.ER PO SCH ×4 (07:29→19:32)
[2021-10-14] MEDS: Citalopram 20 MG Tab PO SCH (07:29)
[2021-10-14] MEDS: Albuterol/Ipratropium 3.0-0.5 MG/3 ML Neb Soln NEB SCH ×2 (07:29→19:33)
[2021-10-14] MEDS: Calcium Carbonate 750 MG Tab.Chew PO SCH (07:30)
[2021-10-14] MEDS: Furosemide 20 MG Tab PO SCH ×2 (07:30→11:15)
[2021-10-14] MEDS: LEVOTHYROXINE 137 MCG PO SCH (19:32)
[2021-10-14] MEDS: BUPROPION 300 MG PO SCH (19:32)
[2021-10-14] MEDS: Simvastatin 10 MG Tab PO SCH (19:32)
[2021-10-15] MEDS: traMADol 50 MG Tab PO PRN (07:26)
[2021-10-15] MEDS: Calcium Carbonate 750 MG Tab.Chew PO SCH (07:27)
[2021-10-15] MEDS: Acetaminophen 500 MG Tab PO SCH ×3 (07:27→19:49)
[2021-10-15] MEDS: Cyanocobalamin (Vitamin B12) 1,000 MCG Tab PO SCH (07:27)
[2021-10-15] MEDS: Citalopram 20 MG Tab PO SCH (07:28)
[2021-10-15] MEDS: Albuterol/Ipratropium 3.0-0.5 MG/3 ML Neb Soln NEB SCH ×2 (07:28→19:44)
[2021-10-15] MEDS: Fludrocortisone 0.1 MG Tab PO SCH ×2 (07:28→19:47)
[2021-10-15] MEDS: Cholecalciferol (Vitamin D3) 25 MCG Tab PO SCH (07:28)
[2021-10-15] MEDS: Docusate Sodium 100 MG Cap PO SCH ×2 (07:28→17:14)
[2021-10-15] MEDS: Furosemide 20 MG Tab PO SCH ×2 (07:29→11:23)
[2021-10-15] MEDS: Potassium Chloride 20 MEQ Tab.ER PO SCH ×4 (07:29→19:48)
[2021-10-15] MEDS: LEVOTHYROXINE 137 MCG PO SCH (19:48)
[2021-10-15] MEDS: BUPROPION 300 MG PO SCH (19:48)
[2021-10-15] MEDS: Simvastatin 10 MG Tab PO SCH (19:50)
[2021-10-16] MEDS: Fludrocortisone 0.1 MG Tab PO SCH ×2 (07:37→19:47)
[2021-10-16] MEDS: Furosemide 20 MG Tab PO SCH ×2 (07:37→11:28)
[2021-10-16] MEDS: Potassium Chloride 20 MEQ Tab.ER PO SCH ×4 (07:37→19:47)
[2021-10-16] MEDS: Citalopram 20 MG Tab PO SCH (07:37)
[2021-10-16] MEDS: Albuterol/Ipratropium 3.0-0.5 MG/3 ML Neb Soln NEB SCH ×2 (07:38→19:47)
[2021-10-16] MEDS: Calcium Carbonate 750 MG Tab.Chew PO SCH (07:38)
[2021-10-16] MEDS: Docusate Sodium 100 MG Cap PO SCH ×2 (07:38→17:15)
[2021-10-16] MEDS: Acetaminophen 500 MG Tab PO SCH ×3 (07:39→19:48)
[2021-10-16] MEDS: Cyanocobalamin (Vitamin B12) 1,000 MCG Tab PO SCH (07:39)
[2021-10-16] MEDS: Cholecalciferol (Vitamin D3) 25 MCG Tab PO SCH (07:39)
[2021-10-16] MEDS: Simvastatin 10 MG Tab PO SCH (19:48)
[2021-10-16] MEDS: BUPROPION 300 MG PO SCH (19:48)
[2021-10-16] MEDS: LEVOTHYROXINE 137 MCG PO SCH (19:48)
[2021-10-16] MEDS: Menthol 10%/Methyl Salicylate 30% 85 GM Tube TOP PRN (19:49)
[2021-10-17] MEDS: traMADol 50 MG Tab PO PRN (07:33)
[2021-10-17] MEDS: Acetaminophen 500 MG Tab PO SCH ×3 (07:34→19:13)
[2021-10-17] MEDS: Albuterol/Ipratropium 3.0-0.5 MG/3 ML Neb Soln NEB SCH ×2 (07:35→19:11)
[2021-10-17] MEDS: Cholecalciferol (Vitamin D3) 25 MCG Tab PO SCH (07:35)
[2021-10-17] MEDS: Cyanocobalamin (Vitamin B12) 1,000 MCG Tab PO SCH (07:35)
[2021-10-17] MEDS: Citalopram 20 MG Tab PO SCH (07:35)
[2021-10-17] MEDS: Docusate Sodium 100 MG Cap PO SCH ×2 (07:36→17:23)
[2021-10-17] MEDS: Potassium Chloride 20 MEQ Tab.ER PO SCH ×4 (07:36→19:13)
[2021-10-17] MEDS: Fludrocortisone 0.1 MG Tab PO SCH ×2 (07:36→19:12)
[2021-10-17] MEDS: Furosemide 20 MG Tab PO SCH ×2 (07:36→11:36)
[2021-10-17] MEDS: Calcium Carbonate 750 MG Tab.Chew PO SCH (07:37)
[2021-10-17] MEDS: BUPROPION 300 MG PO SCH (19:12)
[2021-10-17] MEDS: LEVOTHYROXINE 137 MCG PO SCH (19:12)
[2021-10-17] MEDS: Simvastatin 10 MG Tab PO SCH (19:12)
[2021-10-18] MEDS: Citalopram 20 MG Tab PO SCH (07:34)
[2021-10-18] MEDS: Docusate Sodium 100 MG Cap PO SCH ×2 (07:35→17:24)
[2021-10-18] MEDS: Fludrocortisone 0.1 MG Tab PO SCH ×2 (07:35→19:19)
[2021-10-18] MEDS: Potassium Chloride 20 MEQ Tab.ER PO SCH ×4 (07:35→19:19)
[2021-10-18] MEDS: Albuterol/Ipratropium 3.0-0.5 MG/3 ML Neb Soln NEB SCH ×2 (07:35→20:33)
[2021-10-18] MEDS: Furosemide 20 MG Tab PO SCH ×2 (07:36→11:39)
[2021-10-18] MEDS: Calcium Carbonate 750 MG Tab.Chew PO SCH (07:36)
[2021-10-18] MEDS: Acetaminophen 500 MG Tab PO SCH ×3 (07:37→19:19)
[2021-10-18] MEDS: Cholecalciferol (Vitamin D3) 25 MCG Tab PO SCH (07:38)
[2021-10-18] MEDS: Cyanocobalamin (Vitamin B12) 1,000 MCG Tab PO SCH (07:38)
[2021-10-18] MEDS: Magnesium Hydroxide 400 MG/5 ML Susp 30 ML Cup PO PRN (16:08)
[2021-10-18] MEDS: Simvastatin 10 MG Tab PO SCH (19:19)
[2021-10-18] MEDS: LEVOTHYROXINE 137 MCG PO SCH (19:19)
[2021-10-18] MEDS: BUPROPION 300 MG PO SCH (19:19)
[2021-10-19] MEDS: Albuterol/Ipratropium 3.0-0.5 MG/3 ML Neb Soln NEB SCH ×2 (07:34→19:23)
[2021-10-19] MEDS: Docusate Sodium 100 MG Cap PO SCH ×2 (07:35→17:00)
[2021-10-19] MEDS: Calcium Carbonate 750 MG Tab.Chew PO SCH (07:35)
[2021-10-19] MEDS: Cholecalciferol (Vitamin D3) 25 MCG Tab PO SCH (07:35)
[2021-10-19] MEDS: Cyanocobalamin (Vitamin B12) 1,000 MCG Tab PO SCH (07:36)
[2021-10-19] MEDS: Acetaminophen 500 MG Tab PO SCH ×3 (07:36→19:24)
[2021-10-19] MEDS: Furosemide 20 MG Tab PO SCH ×2 (07:37→11:16)
[2021-10-19] MEDS: Fludrocortisone 0.1 MG Tab PO SCH ×2 (07:37→19:23)
[2021-10-19] MEDS: Potassium Chloride 20 MEQ Tab.ER PO SCH ×4 (07:37→19:23)
[2021-10-19] MEDS: Citalopram 20 MG Tab PO SCH (07:37)
[2021-10-19] MEDS: LEVOTHYROXINE 137 MCG PO SCH (19:23)
[2021-10-19] MEDS: BUPROPION 300 MG PO SCH (19:23)
[2021-10-19] MEDS: Simvastatin 10 MG Tab PO SCH (19:24)
[2021-10-19] MEDS: Menthol 10%/Methyl Salicylate 30% 85 GM Tube TOP PRN (19:25)
[2021-10-19] MEDS: guaiFENesin/Dextromethorphan 100-10 MG/5 ML Soln 10 ML Cup PO PRN (19:28)
[2021-10-20] MEDS: Albuterol/Ipratropium 3.0-0.5 MG/3 ML Neb Soln NEB SCH ×2 (07:18→19:41)
[2021-10-20] MEDS: Cholecalciferol (Vitamin D3) 25 MCG Tab PO SCH (07:19)
[2021-10-20] MEDS: Calcium Carbonate 750 MG Tab.Chew PO SCH (07:19)
[2021-10-20] MEDS: Cyanocobalamin (Vitamin B12) 1,000 MCG Tab PO SCH (07:19)
[2021-10-20] MEDS: Docusate Sodium 100 MG Cap PO SCH ×2 (07:20→17:04)
[2021-10-20] MEDS: Acetaminophen 500 MG Tab PO SCH ×3 (07:20→19:42)
[2021-10-20] MEDS: Citalopram 20 MG Tab PO SCH (07:20)
[2021-10-20] MEDS: Fludrocortisone 0.1 MG Tab PO SCH ×2 (07:21→19:41)
[2021-10-20] MEDS: Potassium Chloride 20 MEQ Tab.ER PO SCH ×4 (07:21→19:41)
[2021-10-20] MEDS: Furosemide 20 MG Tab PO SCH ×2 (07:21→11:54)
[2021-10-20] MEDS: LEVOTHYROXINE 137 MCG PO SCH (19:41)
[2021-10-20] MEDS: BUPROPION 300 MG PO SCH (19:41)
[2021-10-20] MEDS: Simvastatin 10 MG Tab PO SCH (19:42)
[2021-10-20] MEDS: Menthol 10%/Methyl Salicylate 30% 85 GM Tube TOP PRN (19:43)
[2021-10-21] MEDS: Albuterol/Ipratropium 3.0-0.5 MG/3 ML Neb Soln NEB SCH ×2 (07:19→19:35)
[2021-10-21] MEDS: Acetaminophen 500 MG Tab PO SCH ×3 (07:20→19:36)
[2021-10-21] MEDS: Cyanocobalamin (Vitamin B12) 1,000 MCG Tab PO SCH (07:20)
[2021-10-21] MEDS: Calcium Carbonate 750 MG Tab.Chew PO SCH (07:20)
[2021-10-21] MEDS: Cholecalciferol (Vitamin D3) 25 MCG Tab PO SCH (07:20)
[2021-10-21] MEDS: Docusate Sodium 100 MG Cap PO SCH ×2 (07:21→17:05)
[2021-10-21] MEDS: Potassium Chloride 20 MEQ Tab.ER PO SCH ×4 (07:21→19:35)
[2021-10-21] MEDS: Citalopram 20 MG Tab PO SCH (07:21)
[2021-10-21] MEDS: Fludrocortisone 0.1 MG Tab PO SCH ×2 (07:21→19:35)
[2021-10-21] MEDS: Furosemide 20 MG Tab PO SCH ×2 (07:22→11:11)
[2021-10-21] MEDS: BUPROPION 300 MG PO SCH (19:36)
[2021-10-21] MEDS: LEVOTHYROXINE 137 MCG PO SCH (19:36)
[2021-10-21] MEDS: Simvastatin 10 MG Tab PO SCH (19:36)
[2021-10-21] MEDS: Menthol 10%/Methyl Salicylate 30% 85 GM Tube TOP PRN (19:37)
[2021-10-22] MEDS: Furosemide 20 MG Tab PO SCH ×2 (08:28→11:53)
[2021-10-22] MEDS: Fludrocortisone 0.1 MG Tab PO SCH ×2 (08:28→19:45)
[2021-10-22] MEDS: Citalopram 20 MG Tab PO SCH (08:28)
[2021-10-22] MEDS: Potassium Chloride 20 MEQ Tab.ER PO SCH ×4 (08:28→19:45)
[2021-10-22] MEDS: Docusate Sodium 100 MG Cap PO SCH ×2 (08:29→16:59)
[2021-10-22] MEDS: Albuterol/Ipratropium 3.0-0.5 MG/3 ML Neb Soln NEB SCH ×2 (08:29→19:44)
[2021-10-22] MEDS: Cholecalciferol (Vitamin D3) 25 MCG Tab PO SCH (08:30)
[2021-10-22] MEDS: Cyanocobalamin (Vitamin B12) 1,000 MCG Tab PO SCH (08:30)
[2021-10-22] MEDS: Calcium Carbonate 750 MG Tab.Chew PO SCH (08:30)
[2021-10-22] MEDS: Acetaminophen 500 MG Tab PO SCH ×3 (08:31→19:46)
[2021-10-22] MEDS: traMADol 50 MG Tab PO PRN (08:32)
[2021-10-22] MEDS: LEVOTHYROXINE 137 MCG PO SCH (19:45)
[2021-10-22] MEDS: Simvastatin 10 MG Tab PO SCH (19:46)
[2021-10-22] MEDS: BUPROPION 300 MG PO SCH (19:46)
[2021-10-22] MEDS: Menthol 10%/Methyl Salicylate 30% 85 GM Tube TOP PRN (19:47)
[2021-10-23] MEDS: traMADol 50 MG Tab PO PRN ×2 (07:40→15:14)
[2021-10-23] MEDS: Acetaminophen 500 MG Tab PO SCH ×3 (07:40→19:14)
[2021-10-23] MEDS: Docusate Sodium 100 MG Cap PO SCH ×2 (07:41→17:23)
[2021-10-23] MEDS: Citalopram 20 MG Tab PO SCH (07:41)
[2021-10-23] MEDS: Potassium Chloride 20 MEQ Tab.ER PO SCH ×4 (07:42→19:18)
[2021-10-23] MEDS: Furosemide 20 MG Tab PO SCH ×2 (07:42→11:34)
[2021-10-23] MEDS: Fludrocortisone 0.1 MG Tab PO SCH ×2 (07:42→19:13)
[2021-10-23] MEDS: Albuterol/Ipratropium 3.0-0.5 MG/3 ML Neb Soln NEB SCH ×2 (07:42→19:15)
[2021-10-23] MEDS: Cyanocobalamin (Vitamin B12) 1,000 MCG Tab PO SCH (07:43)
[2021-10-23] MEDS: Cholecalciferol (Vitamin D3) 25 MCG Tab PO SCH (07:43)
[2021-10-23] MEDS: Calcium Carbonate 750 MG Tab.Chew PO SCH (07:43)
[2021-10-23] MEDS: BUPROPION 300 MG PO SCH (19:13)
[2021-10-23] MEDS: LEVOTHYROXINE 137 MCG PO SCH (19:13)
[2021-10-23] MEDS: Simvastatin 10 MG Tab PO SCH (19:14)
[2021-10-24] MEDS: Albuterol/Ipratropium 3.0-0.5 MG/3 ML Neb Soln NEB SCH ×2 (07:18→20:00)
[2021-10-24] MEDS: traMADol 50 MG Tab PO PRN (07:18)
[2021-10-24] MEDS: Cholecalciferol (Vitamin D3) 25 MCG Tab PO SCH (07:19)
[2021-10-24] MEDS: Acetaminophen 500 MG Tab PO SCH ×3 (07:19→20:03)
[2021-10-24] MEDS: Cyanocobalamin (Vitamin B12) 1,000 MCG Tab PO SCH (07:19)
[2021-10-24] MEDS: Fludrocortisone 0.1 MG Tab PO SCH ×2 (07:20→20:02)
[2021-10-24] MEDS: Potassium Chloride 20 MEQ Tab.ER PO SCH ×4 (07:20→20:02)
[2021-10-24] MEDS: Citalopram 20 MG Tab PO SCH (07:20)
[2021-10-24] MEDS: Docusate Sodium 100 MG Cap PO SCH ×2 (07:20→17:12)
[2021-10-24] MEDS: Furosemide 20 MG Tab PO SCH ×2 (07:21→11:28)
[2021-10-24] MEDS: Calcium Carbonate 750 MG Tab.Chew PO SCH (07:21)
[2021-10-24] MEDS: LEVOTHYROXINE 137 MCG PO SCH (20:02)
[2021-10-24] MEDS: BUPROPION 300 MG PO SCH (20:03)
[2021-10-24] MEDS: Simvastatin 10 MG Tab PO SCH (20:04)
[2021-10-25] MEDS: Albuterol/Ipratropium 3.0-0.5 MG/3 ML Neb Soln NEB SCH ×2 (07:25→19:31)
[2021-10-25] MEDS: traMADol 50 MG Tab PO PRN (07:26)
[2021-10-25] MEDS: Docusate Sodium 100 MG Cap PO SCH ×2 (07:27→17:15)
[2021-10-25] MEDS: Acetaminophen 500 MG Tab PO SCH ×3 (07:27→19:32)
[2021-10-25] MEDS: Calcium Carbonate 750 MG Tab.Chew PO SCH (07:27)
[2021-10-25] MEDS: Potassium Chloride 20 MEQ Tab.ER PO SCH ×4 (07:28→19:31)
[2021-10-25] MEDS: Citalopram 20 MG Tab PO SCH (07:28)
[2021-10-25] MEDS: Fludrocortisone 0.1 MG Tab PO SCH ×2 (07:28→19:31)
[2021-10-25] MEDS: Furosemide 20 MG Tab PO SCH ×2 (07:28→11:33)
[2021-10-25] MEDS: Cholecalciferol (Vitamin D3) 25 MCG Tab PO SCH (07:29)
[2021-10-25] MEDS: Cyanocobalamin (Vitamin B12) 1,000 MCG Tab PO SCH (07:29)
[2021-10-25] MEDS: LEVOTHYROXINE 137 MCG PO SCH (19:32)
[2021-10-25] MEDS: BUPROPION 300 MG PO SCH (19:32)
[2021-10-25] MEDS: Simvastatin 10 MG Tab PO SCH (19:34)
[2021-10-25] MEDS: Menthol 10%/Methyl Salicylate 30% 85 GM Tube TOP PRN (19:34)
[2021-10-26] MEDS: Albuterol/Ipratropium 3.0-0.5 MG/3 ML Neb Soln NEB SCH ×2 (07:25→19:28)
[2021-10-26] MEDS: Calcium Carbonate 750 MG Tab.Chew PO SCH (07:25)
[2021-10-26] MEDS: Citalopram 20 MG Tab PO SCH (07:26)
[2021-10-26] MEDS: Fludrocortisone 0.1 MG Tab PO SCH ×2 (07:26→19:28)
[2021-10-26] MEDS: Potassium Chloride 20 MEQ Tab.ER PO SCH ×4 (07:26→19:29)
[2021-10-26] MEDS: Furosemide 20 MG Tab PO SCH ×2 (07:27→10:59)
[2021-10-26] MEDS: Acetaminophen 500 MG Tab PO SCH ×3 (07:27→19:29)
[2021-10-26] MEDS: Docusate Sodium 100 MG Cap PO SCH ×2 (07:28→17:40)
[2021-10-26] MEDS: Cyanocobalamin (Vitamin B12) 1,000 MCG Tab PO SCH (07:28)
[2021-10-26] MEDS: Cholecalciferol (Vitamin D3) 25 MCG Tab PO SCH (07:28)
[2021-10-26] MEDS: LEVOTHYROXINE 137 MCG PO SCH (19:29)
[2021-10-26] MEDS: Simvastatin 10 MG Tab PO SCH (19:29)
[2021-10-26] MEDS: BUPROPION 300 MG PO SCH (19:29)
[2021-10-27] MEDS: Fludrocortisone 0.1 MG Tab PO SCH ×2 (08:17→19:59)
[2021-10-27] MEDS: Potassium Chloride 20 MEQ Tab.ER PO SCH ×4 (08:17→19:59)
[2021-10-27] MEDS: Furosemide 20 MG Tab PO SCH ×2 (08:17→12:18)
[2021-10-27] MEDS: Docusate Sodium 100 MG Cap PO SCH ×2 (08:18→17:25)
[2021-10-27] MEDS: Citalopram 20 MG Tab PO SCH (08:18)
[2021-10-27] MEDS: Albuterol/Ipratropium 3.0-0.5 MG/3 ML Neb Soln NEB SCH ×2 (08:18→19:55)
[2021-10-27] MEDS: Calcium Carbonate 750 MG Tab.Chew PO SCH (08:19)
[2021-10-27] MEDS: Acetaminophen 500 MG Tab PO SCH ×3 (08:20→20:00)
[2021-10-27] MEDS: Cyanocobalamin (Vitamin B12) 1,000 MCG Tab PO SCH (08:20)
[2021-10-27] MEDS: Cholecalciferol (Vitamin D3) 25 MCG Tab PO SCH (08:21)
[2021-10-27] MEDS: traMADol 50 MG Tab PO PRN (08:26)
[2021-10-27] MEDS: LEVOTHYROXINE 137 MCG PO SCH (19:59)
[2021-10-27] MEDS: BUPROPION 300 MG PO SCH (20:00)
[2021-10-27] MEDS: Simvastatin 10 MG Tab PO SCH (20:01)
[2021-10-28] MEDS: Potassium Chloride 20 MEQ Tab.ER PO SCH ×4 (08:23→20:24)
[2021-10-28] MEDS: Fludrocortisone 0.1 MG Tab PO SCH ×2 (08:23→20:24)
[2021-10-28] MEDS: Furosemide 20 MG Tab PO SCH ×2 (08:23→12:34)
[2021-10-28] MEDS: Citalopram 20 MG Tab PO SCH (08:23)
[2021-10-28] MEDS: Docusate Sodium 100 MG Cap PO SCH ×2 (08:24→17:33)
[2021-10-28] MEDS: Calcium Carbonate 750 MG Tab.Chew PO SCH (08:25)
[2021-10-28] MEDS: Albuterol/Ipratropium 3.0-0.5 MG/3 ML Neb Soln NEB SCH ×2 (08:25→20:19)
[2021-10-28] MEDS: Cyanocobalamin (Vitamin B12) 1,000 MCG Tab PO SCH (08:26)
[2021-10-28] MEDS: Acetaminophen 500 MG Tab PO SCH ×3 (08:26→20:25)
[2021-10-28] MEDS: Cholecalciferol (Vitamin D3) 25 MCG Tab PO SCH (08:26)
[2021-10-28] MEDS: traMADol 50 MG Tab PO PRN (08:27)
[2021-10-28] MEDS: Bisacodyl 5 MG Tab PO PRN (17:34)
[2021-10-28] MEDS: LEVOTHYROXINE 137 MCG PO SCH (20:24)
[2021-10-28] MEDS: BUPROPION 300 MG PO SCH (20:25)
[2021-10-28] MEDS: Simvastatin 10 MG Tab PO SCH (20:26)
[2021-10-29] MEDS: Potassium Chloride 20 MEQ Tab.ER PO SCH ×4 (07:50→20:10)
[2021-10-29] MEDS: Fludrocortisone 0.1 MG Tab PO SCH ×2 (07:51→20:10)
[2021-10-29] MEDS: Citalopram 20 MG Tab PO SCH (07:51)
[2021-10-29] MEDS: Furosemide 20 MG Tab PO SCH ×2 (07:51→11:45)
[2021-10-29] MEDS: Docusate Sodium 100 MG Cap PO SCH ×2 (07:52→17:11)
[2021-10-29] MEDS: Albuterol/Ipratropium 3.0-0.5 MG/3 ML Neb Soln NEB SCH ×2 (07:52→20:09)
[2021-10-29] MEDS: Calcium Carbonate 750 MG Tab.Chew PO SCH (07:53)
[2021-10-29] MEDS: Cyanocobalamin (Vitamin B12) 1,000 MCG Tab PO SCH (07:55)
[2021-10-29] MEDS: Cholecalciferol (Vitamin D3) 25 MCG Tab PO SCH (07:55)
[2021-10-29] MEDS: Acetaminophen 500 MG Tab PO SCH ×3 (07:55→20:10)
[2021-10-29] MEDS: LEVOTHYROXINE 137 MCG PO SCH (20:10)
[2021-10-29] MEDS: BUPROPION 300 MG PO SCH (20:10)
[2021-10-29] MEDS: Simvastatin 10 MG Tab PO SCH (20:11)
[2021-10-29] MEDS: Menthol 10%/Methyl Salicylate 30% 85 GM Tube TOP PRN (20:12)
[2021-10-30] MEDS: traMADol 50 MG Tab PO PRN ×2 (04:17→15:02)
[2021-10-30] MEDS: Albuterol/Ipratropium 3.0-0.5 MG/3 ML Neb Soln NEB SCH ×2 (07:55→20:00)
[2021-10-30] MEDS: Calcium Carbonate 750 MG Tab.Chew PO SCH (07:56)
[2021-10-30] MEDS: Acetaminophen 500 MG Tab PO SCH ×3 (07:56→20:01)
[2021-10-30] MEDS: Fludrocortisone 0.1 MG Tab PO SCH ×2 (07:57→20:00)
[2021-10-30] MEDS: Citalopram 20 MG Tab PO SCH (07:57)
[2021-10-30] MEDS: Potassium Chloride 20 MEQ Tab.ER PO SCH ×4 (07:57→20:01)
[2021-10-30] MEDS: Docusate Sodium 100 MG Cap PO SCH ×2 (07:57→17:25)
[2021-10-30] MEDS: Cyanocobalamin (Vitamin B12) 1,000 MCG Tab PO SCH (07:58)
[2021-10-30] MEDS: Cholecalciferol (Vitamin D3) 25 MCG Tab PO SCH (07:58)
[2021-10-30] MEDS: Furosemide 20 MG Tab PO SCH ×2 (07:58→11:34)
[2021-10-30] MEDS: Simvastatin 10 MG Tab PO SCH (20:01)
[2021-10-30] MEDS: LEVOTHYROXINE 137 MCG PO SCH (20:01)
[2021-10-30] MEDS: BUPROPION 300 MG PO SCH (20:01)
[2021-10-30] MEDS: Menthol 10%/Methyl Salicylate 30% 85 GM Tube TOP PRN (20:03)
[2021-10-30] MEDS: guaiFENesin/Dextromethorphan 100-10 MG/5 ML Soln 10 ML Cup PO PRN (20:06)
[2021-10-31] MEDS: Potassium Chloride 20 MEQ Tab.ER PO SCH ×4 (07:38→19:55)
[2021-10-31] MEDS: Citalopram 20 MG Tab PO SCH (07:39)
[2021-10-31] MEDS: Furosemide 20 MG Tab PO SCH ×2 (07:39→11:57)
[2021-10-31] MEDS: Fludrocortisone 0.1 MG Tab PO SCH ×2 (07:39→19:54)
[2021-10-31] MEDS: Calcium Carbonate 750 MG Tab.Chew PO SCH (07:39)
[2021-10-31] MEDS: Acetaminophen 500 MG Tab PO SCH ×3 (07:41→19:56)
[2021-10-31] MEDS: Cyanocobalamin (Vitamin B12) 1,000 MCG Tab PO SCH (07:42)
[2021-10-31] MEDS: Cholecalciferol (Vitamin D3) 25 MCG Tab PO SCH (07:42)
[2021-10-31] MEDS: Docusate Sodium 100 MG Cap PO SCH ×2 (07:42→17:24)
[2021-10-31] MEDS: Albuterol/Ipratropium 3.0-0.5 MG/3 ML Neb Soln NEB SCH ×2 (07:43→19:54)
[2021-10-31] MEDS: LEVOTHYROXINE 137 MCG PO SCH (19:55)
[2021-10-31] MEDS: Simvastatin 10 MG Tab PO SCH (19:55)
[2021-10-31] MEDS: BUPROPION 300 MG PO SCH (19:55)
[2021-10-31] MEDS: Menthol 10%/Methyl Salicylate 30% 85 GM Tube TOP PRN (19:56)
[2021-11-01] MEDS: Furosemide 20 MG Tab PO SCH ×2 (08:13→12:03)
[2021-11-01] MEDS: Fludrocortisone 0.1 MG Tab PO SCH ×2 (08:14→20:27)
[2021-11-01] MEDS: Citalopram 20 MG Tab PO SCH (08:14)
[2021-11-01] MEDS: Potassium Chloride 20 MEQ Tab.ER PO SCH ×4 (08:14→20:28)
[2021-11-01] MEDS: Albuterol/Ipratropium 3.0-0.5 MG/3 ML Neb Soln NEB SCH ×2 (08:14→20:25)
[2021-11-01] MEDS: Docusate Sodium 100 MG Cap PO SCH ×2 (08:15→17:34)
[2021-11-01] MEDS: Calcium Carbonate 750 MG Tab.Chew PO SCH (08:15)
[2021-11-01] MEDS: Cyanocobalamin (Vitamin B12) 1,000 MCG Tab PO SCH (08:16)
[2021-11-01] MEDS: Cholecalciferol (Vitamin D3) 25 MCG Tab PO SCH (08:16)
[2021-11-01] MEDS: Acetaminophen 500 MG Tab PO SCH ×3 (08:16→20:29)
[2021-11-01] MEDS: traMADol 50 MG Tab PO PRN (08:18)
[2021-11-01] MEDS: LEVOTHYROXINE 137 MCG PO SCH (20:28)
[2021-11-01] MEDS: BUPROPION 300 MG PO SCH (20:28)
[2021-11-01] MEDS: Simvastatin 10 MG Tab PO SCH (20:29)
[2021-11-02] MEDS: Albuterol/Ipratropium 3.0-0.5 MG/3 ML Neb Soln NEB SCH ×2 (07:33→19:24)
[2021-11-02] MEDS: traMADol 50 MG Tab PO PRN (07:34)
[2021-11-02] MEDS: Docusate Sodium 100 MG Cap PO SCH ×2 (07:35→17:12)
[2021-11-02] MEDS: Fludrocortisone 0.1 MG Tab PO SCH ×2 (07:35→19:25)
[2021-11-02] MEDS: Citalopram 20 MG Tab PO SCH (07:35)
[2021-11-02] MEDS: Calcium Carbonate 750 MG Tab.Chew PO SCH (07:36)
[2021-11-02] MEDS: Furosemide 20 MG Tab PO SCH ×2 (07:36→11:06)
[2021-11-02] MEDS: Potassium Chloride 20 MEQ Tab.ER PO SCH ×4 (07:36→19:25)
[2021-11-02] MEDS: Cyanocobalamin (Vitamin B12) 1,000 MCG Tab PO SCH (07:37)
[2021-11-02] MEDS: Cholecalciferol (Vitamin D3) 25 MCG Tab PO SCH (07:37)
[2021-11-02] MEDS: Acetaminophen 500 MG Tab PO SCH ×3 (07:37→19:26)
[2021-11-02] MEDS: LEVOTHYROXINE 137 MCG PO SCH (19:25)
[2021-11-02] MEDS: BUPROPION 300 MG PO SCH (19:26)
[2021-11-02] MEDS: Simvastatin 10 MG Tab PO SCH (19:26)
[2021-11-03] MEDS: Docusate Sodium 100 MG Cap PO SCH ×2 (07:25→17:10)
[2021-11-03] MEDS: Citalopram 20 MG Tab PO SCH (07:25)
[2021-11-03] MEDS: Potassium Chloride 20 MEQ Tab.ER PO SCH ×4 (07:26→19:22)
[2021-11-03] MEDS: Albuterol/Ipratropium 3.0-0.5 MG/3 ML Neb Soln NEB SCH ×2 (07:26→19:22)
[2021-11-03] MEDS: Furosemide 20 MG Tab PO SCH ×2 (07:26→11:09)
[2021-11-03] MEDS: Fludrocortisone 0.1 MG Tab PO SCH ×2 (07:26→19:22)
[2021-11-03] MEDS: Calcium Carbonate 750 MG Tab.Chew PO SCH (07:27)
[2021-11-03] MEDS: Acetaminophen 500 MG Tab PO SCH ×3 (07:27→19:23)
[2021-11-03] MEDS: Cholecalciferol (Vitamin D3) 25 MCG Tab PO SCH (07:28)
[2021-11-03] MEDS: traMADol 50 MG Tab PO PRN (07:28)
[2021-11-03] MEDS: Cyanocobalamin (Vitamin B12) 1,000 MCG Tab PO SCH (07:28)
[2021-11-03] MEDS: LEVOTHYROXINE 137 MCG PO SCH (19:22)
[2021-11-03] MEDS: BUPROPION 300 MG PO SCH (19:22)
[2021-11-03] MEDS: Simvastatin 10 MG Tab PO SCH (19:22)
[2021-11-04] MEDS: Citalopram 20 MG Tab PO SCH (07:04)
[2021-11-04] MEDS: Furosemide 20 MG Tab PO SCH ×2 (07:05→11:16)
[2021-11-04] MEDS: Docusate Sodium 100 MG Cap PO SCH ×2 (07:05→17:09)
[2021-11-04] MEDS: Albuterol/Ipratropium 3.0-0.5 MG/3 ML Neb Soln NEB SCH ×2 (07:05→19:22)
[2021-11-04] MEDS: Potassium Chloride 20 MEQ Tab.ER PO SCH ×4 (07:05→19:23)
[2021-11-04] MEDS: Fludrocortisone 0.1 MG Tab PO SCH ×2 (07:05→19:23)
[2021-11-04] MEDS: Calcium Carbonate 750 MG Tab.Chew PO SCH (07:06)
[2021-11-04] MEDS: Acetaminophen 500 MG Tab PO SCH ×3 (07:06→19:23)
[2021-11-04] MEDS: Cyanocobalamin (Vitamin B12) 1,000 MCG Tab PO SCH (07:07)
[2021-11-04] MEDS: traMADol 50 MG Tab PO PRN (07:07)
[2021-11-04] MEDS: Cholecalciferol (Vitamin D3) 25 MCG Tab PO SCH (07:07)
[2021-11-04] MEDS: LEVOTHYROXINE 137 MCG PO SCH (19:23)
[2021-11-04] MEDS: BUPROPION 300 MG PO SCH (19:23)
[2021-11-04] MEDS: Simvastatin 10 MG Tab PO SCH (19:23)
[2021-11-05] MEDS: Citalopram 20 MG Tab PO SCH (07:27)
[2021-11-05] MEDS: Albuterol/Ipratropium 3.0-0.5 MG/3 ML Neb Soln NEB SCH ×2 (07:27→19:42)
[2021-11-05] MEDS: Docusate Sodium 100 MG Cap PO SCH ×2 (07:27→17:10)
[2021-11-05] MEDS: Calcium Carbonate 750 MG Tab.Chew PO SCH (07:28)
[2021-11-05] MEDS: Potassium Chloride 20 MEQ Tab.ER PO SCH ×4 (07:28→19:44)
[2021-11-05] MEDS: Fludrocortisone 0.1 MG Tab PO SCH ×2 (07:28→19:44)
[2021-11-05] MEDS: Furosemide 20 MG Tab PO SCH ×2 (07:28→11:23)
[2021-11-05] MEDS: Acetaminophen 500 MG Tab PO SCH ×3 (07:29→19:45)
[2021-11-05] MEDS: traMADol 50 MG Tab PO PRN (07:30)
[2021-11-05] MEDS: Cholecalciferol (Vitamin D3) 25 MCG Tab PO SCH (07:31)
[2021-11-05] MEDS: Cyanocobalamin (Vitamin B12) 1,000 MCG Tab PO SCH (07:31)
[2021-11-05] MEDS: LEVOTHYROXINE 137 MCG PO SCH (19:44)
[2021-11-05] MEDS: BUPROPION 300 MG PO SCH (19:45)
[2021-11-05] MEDS: Simvastatin 10 MG Tab PO SCH (19:46)
[2021-11-06] MEDS: traMADol 50 MG Tab PO PRN (07:32)
[2021-11-06] MEDS: Acetaminophen 500 MG Tab PO SCH ×3 (07:33→19:36)
[2021-11-06] MEDS: Cyanocobalamin (Vitamin B12) 1,000 MCG Tab PO SCH (07:34)
[2021-11-06] MEDS: Albuterol/Ipratropium 3.0-0.5 MG/3 ML Neb Soln NEB SCH ×2 (07:34→19:32)
[2021-11-06] MEDS: Docusate Sodium 100 MG Cap PO SCH ×2 (07:34→17:06)
[2021-11-06] MEDS: Calcium Carbonate 750 MG Tab.Chew PO SCH (07:34)
[2021-11-06] MEDS: Fludrocortisone 0.1 MG Tab PO SCH ×2 (07:35→19:35)
[2021-11-06] MEDS: Citalopram 20 MG Tab PO SCH (07:35)
[2021-11-06] MEDS: Furosemide 20 MG Tab PO SCH ×2 (07:35→11:10)
[2021-11-06] MEDS: Potassium Chloride 20 MEQ Tab.ER PO SCH ×4 (07:35→19:35)
[2021-11-06] MEDS: Cholecalciferol (Vitamin D3) 25 MCG Tab PO SCH (07:35)
[2021-11-06] MEDS: BUPROPION 300 MG PO SCH (19:35)
[2021-11-06] MEDS: LEVOTHYROXINE 137 MCG PO SCH (19:35)
[2021-11-06] MEDS: Simvastatin 10 MG Tab PO SCH (19:37)
[2021-11-07] MEDS: Albuterol/Ipratropium 3.0-0.5 MG/3 ML Neb Soln NEB SCH ×2 (07:41→19:36)
[2021-11-07] MEDS: Citalopram 20 MG Tab PO SCH (07:42)
[2021-11-07] MEDS: traMADol 50 MG Tab PO PRN (07:42)
[2021-11-07] MEDS: Calcium Carbonate 750 MG Tab.Chew PO SCH (07:43)
[2021-11-07] MEDS: Docusate Sodium 100 MG Cap PO SCH ×2 (07:43→17:12)
[2021-11-07] MEDS: Acetaminophen 500 MG Tab PO SCH ×3 (07:43→19:37)
[2021-11-07] MEDS: Furosemide 20 MG Tab PO SCH ×2 (07:44→11:16)
[2021-11-07] MEDS: Potassium Chloride 20 MEQ Tab.ER PO SCH ×4 (07:44→19:37)
[2021-11-07] MEDS: Fludrocortisone 0.1 MG Tab PO SCH ×2 (07:44→19:37)
[2021-11-07] MEDS: Cyanocobalamin (Vitamin B12) 1,000 MCG Tab PO SCH (07:45)
[2021-11-07] MEDS: Cholecalciferol (Vitamin D3) 25 MCG Tab PO SCH (07:45)
[2021-11-07] MEDS: BUPROPION 300 MG PO SCH (19:37)
[2021-11-07] MEDS: LEVOTHYROXINE 137 MCG PO SCH (19:37)
[2021-11-07] MEDS: Simvastatin 10 MG Tab PO SCH (19:38)
[2021-11-07] MEDS: Menthol 10%/Methyl Salicylate 30% 85 GM Tube TOP PRN (19:38)
[2021-11-08] MEDS: traMADol 50 MG Tab PO PRN (04:44)
[2021-11-08] MEDS: Potassium Chloride 20 MEQ Tab.ER PO SCH ×4 (08:19→19:33)
[2021-11-08] MEDS: Citalopram 20 MG Tab PO SCH (08:19)
[2021-11-08] MEDS: Fludrocortisone 0.1 MG Tab PO SCH ×2 (08:19→19:32)
[2021-11-08] MEDS: Furosemide 20 MG Tab PO SCH ×2 (08:20→12:01)
[2021-11-08] MEDS: Docusate Sodium 100 MG Cap PO SCH ×2 (08:20→17:25)
[2021-11-08] MEDS: Albuterol/Ipratropium 3.0-0.5 MG/3 ML Neb Soln NEB SCH ×2 (08:20→19:32)
[2021-11-08] MEDS: Acetaminophen 500 MG Tab PO SCH ×3 (08:21→19:33)
[2021-11-08] MEDS: Calcium Carbonate 750 MG Tab.Chew PO SCH (08:21)
[2021-11-08] MEDS: Cyanocobalamin (Vitamin B12) 1,000 MCG Tab PO SCH (08:22)
[2021-11-08] MEDS: Cholecalciferol (Vitamin D3) 25 MCG Tab PO SCH (08:22)
[2021-11-08] MEDS: Simvastatin 10 MG Tab PO SCH (19:33)
[2021-11-08] MEDS: BUPROPION 300 MG PO SCH (19:33)
[2021-11-08] MEDS: LEVOTHYROXINE 137 MCG PO SCH (19:33)
[2021-11-09] MEDS: Fludrocortisone 0.1 MG Tab PO SCH ×2 (07:34→19:30)
[2021-11-09] MEDS: Potassium Chloride 20 MEQ Tab.ER PO SCH ×4 (07:34→19:30)
[2021-11-09] MEDS: Citalopram 20 MG Tab PO SCH (07:34)
[2021-11-09] MEDS: Albuterol/Ipratropium 3.0-0.5 MG/3 ML Neb Soln NEB SCH ×2 (07:35→19:30)
[2021-11-09] MEDS: Furosemide 20 MG Tab PO SCH ×2 (07:35→11:13)
[2021-11-09] MEDS: Cholecalciferol (Vitamin D3) 25 MCG Tab PO SCH (07:36)
[2021-11-09] MEDS: Cyanocobalamin (Vitamin B12) 1,000 MCG Tab PO SCH (07:36)
[2021-11-09] MEDS: Acetaminophen 500 MG Tab PO SCH ×3 (07:36→19:31)
[2021-11-09] MEDS: Docusate Sodium 100 MG Cap PO SCH ×2 (07:37→17:00)
[2021-11-09] MEDS: Calcium Carbonate 750 MG Tab.Chew PO SCH (07:37)
[2021-11-09] MEDS: LEVOTHYROXINE 137 MCG PO SCH (19:30)
[2021-11-09] MEDS: BUPROPION 300 MG PO SCH (19:30)
[2021-11-09] MEDS: Menthol 10%/Methyl Salicylate 30% 85 GM Tube TOP PRN (19:31)
[2021-11-09] MEDS: Simvastatin 10 MG Tab PO SCH (19:31)
[2021-11-10] MEDS: traMADol 50 MG Tab PO PRN (01:10)
[2021-11-10] MEDS: Albuterol/Ipratropium 3.0-0.5 MG/3 ML Neb Soln NEB SCH ×2 (07:29→19:35)
[2021-11-10] MEDS: Cholecalciferol (Vitamin D3) 25 MCG Tab PO SCH (07:30)
[2021-11-10] MEDS: Cyanocobalamin (Vitamin B12) 1,000 MCG Tab PO SCH (07:30)
[2021-11-10] MEDS: Calcium Carbonate 750 MG Tab.Chew PO SCH (07:30)
[2021-11-10] MEDS: Acetaminophen 500 MG Tab PO SCH ×3 (07:30→19:36)
[2021-11-10] MEDS: Furosemide 20 MG Tab PO SCH ×2 (07:31→11:04)
[2021-11-10] MEDS: Fludrocortisone 0.1 MG Tab PO SCH ×2 (07:31→19:35)
[2021-11-10] MEDS: Potassium Chloride 20 MEQ Tab.ER PO SCH ×4 (07:31→19:35)
[2021-11-10] MEDS: Docusate Sodium 100 MG Cap PO SCH ×2 (07:32→16:59)
[2021-11-10] MEDS: Citalopram 20 MG Tab PO SCH (07:32)
[2021-11-10] MEDS: LEVOTHYROXINE 137 MCG PO SCH (19:35)
[2021-11-10] MEDS: BUPROPION 300 MG PO SCH (19:35)
[2021-11-10] MEDS: Simvastatin 10 MG Tab PO SCH (19:36)
[2021-11-10] MEDS: Menthol 10%/Methyl Salicylate 30% 85 GM Tube TOP PRN (19:36)
[2021-11-11] MEDS: Citalopram 20 MG Tab PO SCH (07:54)
[2021-11-11] MEDS: Fludrocortisone 0.1 MG Tab PO SCH ×2 (07:54→19:38)
[2021-11-11] MEDS: Potassium Chloride 20 MEQ Tab.ER PO SCH ×4 (07:54→19:38)
[2021-11-11] MEDS: Furosemide 20 MG Tab PO SCH ×2 (07:55→11:58)
[2021-11-11] MEDS: Albuterol/Ipratropium 3.0-0.5 MG/3 ML Neb Soln NEB SCH ×2 (07:55→19:37)
[2021-11-11] MEDS: Docusate Sodium 100 MG Cap PO SCH ×2 (07:56→17:41)
[2021-11-11] MEDS: Calcium Carbonate 750 MG Tab.Chew PO SCH (07:56)
[2021-11-11] MEDS: Cholecalciferol (Vitamin D3) 25 MCG Tab PO SCH (07:57)
[2021-11-11] MEDS: Cyanocobalamin (Vitamin B12) 1,000 MCG Tab PO SCH (07:57)
[2021-11-11] MEDS: Acetaminophen 500 MG Tab PO SCH ×3 (07:57→19:39)
[2021-11-11] MEDS: traMADol 50 MG Tab PO PRN (11:56)
[2021-11-11] MEDS: LEVOTHYROXINE 137 MCG PO SCH (19:38)
[2021-11-11] MEDS: BUPROPION 300 MG PO SCH (19:39)
[2021-11-11] MEDS: Simvastatin 10 MG Tab PO SCH (19:39)
[2021-11-11] MEDS: Menthol 10%/Methyl Salicylate 30% 85 GM Tube TOP PRN (19:40)
[2021-11-11] MEDS: guaiFENesin/Dextromethorphan 100-10 MG/5 ML Soln 10 ML Cup PO PRN (23:59)
[2021-11-12] MEDS: Albuterol/Ipratropium 3.0-0.5 MG/3 ML Neb Soln NEB SCH ×2 (07:32→19:26)
[2021-11-12] MEDS: traMADol 50 MG Tab PO PRN (07:33)
[2021-11-12] MEDS: Cholecalciferol (Vitamin D3) 25 MCG Tab PO SCH (07:34)
[2021-11-12] MEDS: Docusate Sodium 100 MG Cap PO SCH ×2 (07:34→17:32)
[2021-11-12] MEDS: Acetaminophen 500 MG Tab PO SCH ×3 (07:34→19:27)
[2021-11-12] MEDS: Cyanocobalamin (Vitamin B12) 1,000 MCG Tab PO SCH (07:35)
[2021-11-12] MEDS: Citalopram 20 MG Tab PO SCH (07:35)
[2021-11-12] MEDS: Fludrocortisone 0.1 MG Tab PO SCH ×2 (07:36→19:26)
[2021-11-12] MEDS: Potassium Chloride 20 MEQ Tab.ER PO SCH ×4 (07:36→19:26)
[2021-11-12] MEDS: Furosemide 20 MG Tab PO SCH ×2 (07:36→11:10)
[2021-11-12] MEDS: Calcium Carbonate 750 MG Tab.Chew PO SCH (07:37)
[2021-11-12] MEDS: Simvastatin 10 MG Tab PO SCH (19:26)
[2021-11-12] MEDS: BUPROPION 300 MG PO SCH (19:26)
[2021-11-12] MEDS: LEVOTHYROXINE 137 MCG PO SCH (19:26)
[2021-11-12] MEDS: Menthol 10%/Methyl Salicylate 30% 85 GM Tube TOP PRN (19:28)
[2021-11-13] MEDS: traMADol 50 MG Tab PO PRN (00:32)
[2021-11-13] MEDS: Citalopram 20 MG Tab PO SCH (07:24)
[2021-11-13] MEDS: Fludrocortisone 0.1 MG Tab PO SCH ×2 (07:25→19:25)
[2021-11-13] MEDS: Furosemide 20 MG Tab PO SCH ×2 (07:25→11:25)
[2021-11-13] MEDS: Docusate Sodium 100 MG Cap PO SCH ×2 (07:25→17:08)
[2021-11-13] MEDS: Potassium Chloride 20 MEQ Tab.ER PO SCH ×4 (07:25→19:26)
[2021-11-13] MEDS: Albuterol/Ipratropium 3.0-0.5 MG/3 ML Neb Soln NEB SCH ×2 (07:25→19:25)
[2021-11-13] MEDS: Cyanocobalamin (Vitamin B12) 1,000 MCG Tab PO SCH (07:26)
[2021-11-13] MEDS: Calcium Carbonate 750 MG Tab.Chew PO SCH (07:26)
[2021-11-13] MEDS: Acetaminophen 500 MG Tab PO SCH ×3 (07:26→19:27)
[2021-11-13] MEDS: Cholecalciferol (Vitamin D3) 25 MCG Tab PO SCH (07:27)
[2021-11-13] MEDS: LEVOTHYROXINE 137 MCG PO SCH (19:26)
[2021-11-13] MEDS: BUPROPION 300 MG PO SCH (19:27)
[2021-11-13] MEDS: Simvastatin 10 MG Tab PO SCH (19:27)
[2021-11-14] MEDS: Calcium Carbonate 750 MG Tab.Chew PO SCH (07:30)
[2021-11-14] MEDS: Acetaminophen 500 MG Tab PO SCH ×3 (07:31→19:17)
[2021-11-14] MEDS: traMADol 50 MG Tab PO PRN ×2 (07:31→19:18)
[2021-11-14] MEDS: Albuterol/Ipratropium 3.0-0.5 MG/3 ML Neb Soln NEB SCH ×2 (07:32→19:15)
[2021-11-14] MEDS: Docusate Sodium 100 MG Cap PO SCH (07:32)
[2021-11-14] MEDS: Fludrocortisone 0.1 MG Tab PO SCH (07:32)
[2021-11-14] MEDS: Citalopram 20 MG Tab PO SCH (07:32)
[2021-11-14] MEDS: Potassium Chloride 20 MEQ Tab.ER PO SCH ×4 (07:33→19:16)
[2021-11-14] MEDS: Furosemide 20 MG Tab PO SCH ×2 (07:33→11:28)
[2021-11-14] MEDS: Cyanocobalamin (Vitamin B12) 1,000 MCG Tab PO SCH (07:33)
[2021-11-14] MEDS: Cholecalciferol (Vitamin D3) 25 MCG Tab PO SCH (07:34)
[2021-11-14] MEDS: LEVOTHYROXINE 137 MCG PO SCH (19:16)
[2021-11-14] MEDS: BUPROPION 300 MG PO SCH (19:16)
[2021-11-15 07:28] LABS: CHLORIDE,CL 110 mmol/L (98-107); ESTIMATED GFR > 60 mL/min; SODIUM,NA 146 mmol/L (136-145)
[2021-11-15 07:29] LABS: ANION GAP 8.2 meq/L (7-15)
[2021-11-15] MEDS: Potassium Chloride 20 MEQ Tab.ER PO SCH ×4 (08:06→19:24)
[2021-11-15] MEDS: Citalopram 20 MG Tab PO SCH (08:06)
[2021-11-15] MEDS: Furosemide 20 MG Tab PO SCH (08:06)
[2021-11-15] MEDS: Polyethylene Glycol 3350 Powder 510 GM Bot PO SCH (08:07)
[2021-11-15] MEDS: Albuterol/Ipratropium 3.0-0.5 MG/3 ML Neb Soln NEB SCH ×2 (08:07→19:23)
[2021-11-15] MEDS: Acetaminophen 500 MG Tab PO SCH ×3 (08:08→19:25)
[2021-11-15] MEDS: Calcium Carbonate 750 MG Tab.Chew PO SCH (08:08)
[2021-11-15] MEDS: Cyanocobalamin (Vitamin B12) 1,000 MCG Tab PO SCH (08:09)
[2021-11-15] MEDS: LEVOTHYROXINE 137 MCG PO SCH (19:24)
[2021-11-15] MEDS: BUPROPION 300 MG PO SCH (19:25)
[2021-11-15] MEDS: traMADol 50 MG Tab PO PRN (19:26)
[2021-11-15] MEDS: guaiFENesin/Dextromethorphan 100-10 MG/5 ML Soln 10 ML Cup PO PRN (22:14)
[2021-11-15] MEDS: Albuterol/Ipratropium 3.0-0.5 MG/3 ML Neb Soln NEB PRN (22:14)
[2021-11-16] MEDS: traMADol 50 MG Tab PO PRN (05:11)
[2021-11-16] MEDS: Citalopram 20 MG Tab PO SCH (07:59)
[2021-11-16] MEDS: Potassium Chloride 20 MEQ Tab.ER PO SCH ×4 (07:59→19:36)
[2021-11-16] MEDS: Albuterol/Ipratropium 3.0-0.5 MG/3 ML Neb Soln NEB SCH ×2 (07:59→19:36)
[2021-11-16] MEDS: Polyethylene Glycol 3350 Powder 510 GM Bot PO SCH (08:00)
[2021-11-16] MEDS: Furosemide 20 MG Tab PO SCH (08:00)
[2021-11-16] MEDS: Calcium Carbonate 750 MG Tab.Chew PO SCH (08:01)
[2021-11-16] MEDS: Acetaminophen 500 MG Tab PO SCH ×3 (08:02→19:37)
[2021-11-16] MEDS: Cyanocobalamin (Vitamin B12) 1,000 MCG Tab PO SCH (08:03)
[2021-11-16] MEDS: guaiFENesin/Dextromethorphan 100-10 MG/5 ML Soln 10 ML Cup PO PRN (19:35)
[2021-11-16] MEDS: LEVOTHYROXINE 137 MCG PO SCH (19:36)
[2021-11-16] MEDS: Menthol 10%/Methyl Salicylate 30% 85 GM Tube TOP PRN (19:37)
[2021-11-16] MEDS: BUPROPION 300 MG PO SCH (19:37)
[2021-11-17] MEDS: Potassium Chloride 20 MEQ Tab.ER PO SCH ×4 (08:11→19:46)
[2021-11-17] MEDS: Albuterol/Ipratropium 3.0-0.5 MG/3 ML Neb Soln NEB SCH ×2 (08:11→19:45)
[2021-11-17] MEDS: Citalopram 20 MG Tab PO SCH (08:11)
[2021-11-17] MEDS: Polyethylene Glycol 3350 Powder 510 GM Bot PO SCH (08:12)
[2021-11-17] MEDS: Furosemide 20 MG Tab PO SCH (08:12)
[2021-11-17] MEDS: Acetaminophen 500 MG Tab PO SCH ×3 (08:13→19:47)
[2021-11-17] MEDS: Calcium Carbonate 750 MG Tab.Chew PO SCH (08:13)
[2021-11-17] MEDS: Cyanocobalamin (Vitamin B12) 1,000 MCG Tab PO SCH (08:14)
[2021-11-17] MEDS: LEVOTHYROXINE 137 MCG PO SCH (19:46)
[2021-11-17] MEDS: BUPROPION 300 MG PO SCH (19:47)
[2021-11-17] MEDS: guaiFENesin/Dextromethorphan 100-10 MG/5 ML Soln 10 ML Cup PO PRN (20:02)
[2021-11-18] MEDS: Furosemide 20 MG Tab PO SCH (08:14)
[2021-11-18] MEDS: Potassium Chloride 20 MEQ Tab.ER PO SCH ×4 (08:15→19:33)
[2021-11-18] MEDS: Citalopram 20 MG Tab PO SCH (08:15)
[2021-11-18] MEDS: Albuterol/Ipratropium 3.0-0.5 MG/3 ML Neb Soln NEB SCH ×2 (08:15→19:33)
[2021-11-18] MEDS: Polyethylene Glycol 3350 Powder 510 GM Bot PO SCH (08:16)
[2021-11-18] MEDS: Calcium Carbonate 750 MG Tab.Chew PO SCH (08:17)
[2021-11-18] MEDS: Acetaminophen 500 MG Tab PO SCH ×3 (08:18→19:34)
[2021-11-18] MEDS: Cyanocobalamin (Vitamin B12) 1,000 MCG Tab PO SCH (08:19)
[2021-11-18] MEDS: traMADol 50 MG Tab PO PRN (16:47)
[2021-11-18] MEDS: LEVOTHYROXINE 137 MCG PO SCH (19:34)
[2021-11-18] MEDS: BUPROPION 300 MG PO SCH (19:34)
[2021-11-18] MEDS: guaiFENesin/Dextromethorphan 100-10 MG/5 ML Soln 10 ML Cup PO PRN (19:35)
[2021-11-18] MEDS: Menthol 10%/Methyl Salicylate 30% 85 GM Tube TOP PRN (19:41)
[2021-11-19] MEDS: Albuterol/Ipratropium 3.0-0.5 MG/3 ML Neb Soln NEB SCH ×2 (07:26→19:38)
[2021-11-19] MEDS: Polyethylene Glycol 3350 Powder 510 GM Bot PO SCH (07:27)
[2021-11-19] MEDS: traMADol 50 MG Tab PO PRN (07:27)
[2021-11-19] MEDS: Potassium Chloride 20 MEQ Tab.ER PO SCH ×4 (07:28→19:39)
[2021-11-19] MEDS: Furosemide 20 MG Tab PO SCH (07:28)
[2021-11-19] MEDS: Citalopram 20 MG Tab PO SCH (07:28)
[2021-11-19] MEDS: Acetaminophen 500 MG Tab PO SCH ×3 (07:29→19:39)
[2021-11-19] MEDS: Calcium Carbonate 750 MG Tab.Chew PO SCH (07:29)
[2021-11-19] MEDS: Cyanocobalamin (Vitamin B12) 1,000 MCG Tab PO SCH (07:30)
[2021-11-19] MEDS: LEVOTHYROXINE 137 MCG PO SCH (19:39)
[2021-11-19] MEDS: BUPROPION 300 MG PO SCH (19:39)
[2021-11-19] MEDS: Menthol 10%/Methyl Salicylate 30% 85 GM Tube TOP PRN (19:41)
[2021-11-19] MEDS: guaiFENesin/Dextromethorphan 100-10 MG/5 ML Soln 10 ML Cup PO PRN (19:42)
[2021-11-20] MEDS: Albuterol/Ipratropium 3.0-0.5 MG/3 ML Neb Soln NEB SCH ×2 (07:08→19:57)
[2021-11-20] MEDS: Furosemide 20 MG Tab PO SCH (07:09)
[2021-11-20] MEDS: Potassium Chloride 20 MEQ Tab.ER PO SCH ×4 (07:09→20:00)
[2021-11-20] MEDS: Citalopram 20 MG Tab PO SCH (07:09)
[2021-11-20] MEDS: Acetaminophen 500 MG Tab PO SCH ×3 (07:10→20:01)
[2021-11-20] MEDS: Cyanocobalamin (Vitamin B12) 1,000 MCG Tab PO SCH (07:10)
[2021-11-20] MEDS: Calcium Carbonate 750 MG Tab.Chew PO SCH (07:10)
[2021-11-20] MEDS: Polyethylene Glycol 3350 Powder 510 GM Bot PO SCH (07:11)
[2021-11-20] MEDS: LEVOTHYROXINE 137 MCG PO SCH (20:01)
[2021-11-20] MEDS: BUPROPION 300 MG PO SCH (20:01)
[2021-11-21] MEDS: Potassium Chloride 20 MEQ Tab.ER PO SCH ×4 (08:19→19:49)
[2021-11-21] MEDS: Citalopram 20 MG Tab PO SCH (08:19)
[2021-11-21] MEDS: Furosemide 20 MG Tab PO SCH (08:19)
[2021-11-21] MEDS: Albuterol/Ipratropium 3.0-0.5 MG/3 ML Neb Soln NEB SCH ×2 (08:20→19:46)
[2021-11-21] MEDS: Polyethylene Glycol 3350 Powder 510 GM Bot PO SCH (08:20)
[2021-11-21] MEDS: Cyanocobalamin (Vitamin B12) 1,000 MCG Tab PO SCH (08:21)
[2021-11-21] MEDS: Acetaminophen 500 MG Tab PO SCH ×3 (08:21→19:50)
[2021-11-21] MEDS: Calcium Carbonate 750 MG Tab.Chew PO SCH (08:22)
[2021-11-21] MEDS: BUPROPION 300 MG PO SCH (19:49)
[2021-11-21] MEDS: LEVOTHYROXINE 137 MCG PO SCH (19:49)
[2021-11-22] MEDS: Potassium Chloride 20 MEQ Tab.ER PO SCH ×2 (07:38→17:35)
[2021-11-22] MEDS: Furosemide 20 MG Tab PO SCH (07:38)
[2021-11-22] MEDS: Citalopram 20 MG Tab PO SCH (07:38)
[2021-11-22] MEDS: Albuterol/Ipratropium 3.0-0.5 MG/3 ML Neb Soln NEB SCH ×2 (07:39→20:03)
[2021-11-22] MEDS: Polyethylene Glycol 3350 Powder 510 GM Bot PO SCH (07:40)
[2021-11-22] MEDS: Cyanocobalamin (Vitamin B12) 1,000 MCG Tab PO SCH (07:41)
[2021-11-22] MEDS: Acetaminophen 500 MG Tab PO SCH ×3 (07:41→20:04)
[2021-11-22] MEDS: Calcium Carbonate 750 MG Tab.Chew PO SCH (07:41)
[2021-11-22] MEDS: BUPROPION 300 MG PO SCH (20:04)
[2021-11-22] MEDS: LEVOTHYROXINE 137 MCG PO SCH (20:04)
[2021-11-23] MEDS: Citalopram 20 MG Tab PO SCH (07:42)
[2021-11-23] MEDS: Potassium Chloride 20 MEQ Tab.ER PO SCH ×3 (07:43→17:17)
[2021-11-23] MEDS: Albuterol/Ipratropium 3.0-0.5 MG/3 ML Neb Soln NEB SCH ×2 (07:43→19:23)
[2021-11-23] MEDS: Furosemide 20 MG Tab PO SCH (07:43)
[2021-11-23] MEDS: Polyethylene Glycol 3350 Powder 510 GM Bot PO SCH (07:44)
[2021-11-23] MEDS: Calcium Carbonate 750 MG Tab.Chew PO SCH (07:44)
[2021-11-23] MEDS: Acetaminophen 500 MG Tab PO SCH ×3 (07:44→19:22)
[2021-11-23] MEDS: Cyanocobalamin (Vitamin B12) 1,000 MCG Tab PO SCH (07:45)
[2021-11-23] MEDS: LEVOTHYROXINE 137 MCG PO SCH (19:21)
[2021-11-23] MEDS: BUPROPION 300 MG PO SCH (19:22)
[2021-11-23] MEDS: traMADol 50 MG Tab PO PRN (19:23)
[2021-11-24] MEDS: Albuterol/Ipratropium 3.0-0.5 MG/3 ML Neb Soln NEB SCH ×2 (07:19→19:13)
[2021-11-24] MEDS: Citalopram 20 MG Tab PO SCH (07:21)
[2021-11-24] MEDS: traMADol 50 MG Tab PO PRN ×2 (07:21→19:15)
[2021-11-24] MEDS: Furosemide 20 MG Tab PO SCH (07:22)
[2021-11-24] MEDS: Polyethylene Glycol 3350 Powder 510 GM Bot PO SCH (07:22)
[2021-11-24] MEDS: Potassium Chloride 20 MEQ Tab.ER PO SCH ×2 (07:22→17:14)
[2021-11-24] MEDS: Cyanocobalamin (Vitamin B12) 1,000 MCG Tab PO SCH (07:23)
[2021-11-24] MEDS: Acetaminophen 500 MG Tab PO SCH ×3 (07:23→19:14)
[2021-11-24] MEDS: Calcium Carbonate 750 MG Tab.Chew PO SCH (07:23)
[2021-11-24] MEDS: LEVOTHYROXINE 137 MCG PO SCH (19:13)
[2021-11-24] MEDS: BUPROPION 300 MG PO SCH (19:13)
[2021-11-25] MEDS: traMADol 50 MG Tab PO PRN (07:04)
[2021-11-25] MEDS: Polyethylene Glycol 3350 Powder 510 GM Bot PO SCH (07:05)
[2021-11-25] MEDS: Acetaminophen 500 MG Tab PO SCH ×3 (07:05→19:46)
[2021-11-25] MEDS: Calcium Carbonate 750 MG Tab.Chew PO SCH (07:05)
[2021-11-25] MEDS: Citalopram 20 MG Tab PO SCH (07:06)
[2021-11-25] MEDS: Potassium Chloride 20 MEQ Tab.ER PO SCH ×2 (07:06→17:07)
[2021-11-25] MEDS: Furosemide 20 MG Tab PO SCH (07:06)
[2021-11-25] MEDS: Albuterol/Ipratropium 3.0-0.5 MG/3 ML Neb Soln NEB SCH ×2 (07:06→19:45)
[2021-11-25] MEDS: Cyanocobalamin (Vitamin B12) 1,000 MCG Tab PO SCH (07:07)
[2021-11-25] MEDS: LEVOTHYROXINE 137 MCG PO SCH (19:46)
[2021-11-25] MEDS: BUPROPION 300 MG PO SCH (19:46)
[2021-11-26] MEDS: traMADol 50 MG Tab PO PRN (07:24)
[2021-11-26] MEDS: Acetaminophen 500 MG Tab PO SCH ×3 (07:24→19:33)
[2021-11-26] MEDS: Polyethylene Glycol 3350 Powder 510 GM Bot PO SCH (07:25)
[2021-11-26] MEDS: Calcium Carbonate 750 MG Tab.Chew PO SCH (07:25)
[2021-11-26] MEDS: Furosemide 20 MG Tab PO SCH (07:26)
[2021-11-26] MEDS: Potassium Chloride 20 MEQ Tab.ER PO SCH ×2 (07:26→17:16)
[2021-11-26] MEDS: Albuterol/Ipratropium 3.0-0.5 MG/3 ML Neb Soln NEB SCH ×2 (07:26→19:32)
[2021-11-26] MEDS: Citalopram 20 MG Tab PO SCH (07:26)
[2021-11-26] MEDS: Cyanocobalamin (Vitamin B12) 1,000 MCG Tab PO SCH (07:27)
[2021-11-26] MEDS: LEVOTHYROXINE 137 MCG PO SCH (19:32)
[2021-11-26] MEDS: BUPROPION 300 MG PO SCH (19:33)
[2021-11-27] MEDS: Albuterol/Ipratropium 3.0-0.5 MG/3 ML Neb Soln NEB SCH ×2 (07:01→19:30)
[2021-11-27] MEDS: Citalopram 20 MG Tab PO SCH (07:02)
[2021-11-27] MEDS: Potassium Chloride 20 MEQ Tab.ER PO SCH ×2 (07:03→17:57)
[2021-11-27] MEDS: Furosemide 20 MG Tab PO SCH (07:03)
[2021-11-27] MEDS: Acetaminophen 500 MG Tab PO SCH ×3 (07:05→19:31)
[2021-11-27] MEDS: Cyanocobalamin (Vitamin B12) 1,000 MCG Tab PO SCH (07:05)
[2021-11-27] MEDS: Calcium Carbonate 750 MG Tab.Chew PO SCH (07:05)
[2021-11-27] MEDS: Polyethylene Glycol 3350 Powder 510 GM Bot PO SCH (07:06)
[2021-11-27] MEDS: guaiFENesin/Dextromethorphan 100-10 MG/5 ML Soln 10 ML Cup PO PRN (19:31)
[2021-11-27] MEDS: BUPROPION 300 MG PO SCH (19:31)
[2021-11-27] MEDS: LEVOTHYROXINE 137 MCG PO SCH (19:31)
[2021-11-27] MEDS: Menthol 10%/Methyl Salicylate 30% 85 GM Tube TOP PRN (19:32)
[2021-11-27] MEDS: traMADol 50 MG Tab PO PRN (23:54)
[2021-11-28] MEDS: Albuterol/Ipratropium 3.0-0.5 MG/3 ML Neb Soln NEB SCH ×2 (07:54→19:37)
[2021-11-28] MEDS: traMADol 50 MG Tab PO PRN (07:56)
[2021-11-28] MEDS: Citalopram 20 MG Tab PO SCH (07:57)
[2021-11-28] MEDS: Potassium Chloride 20 MEQ Tab.ER PO SCH ×2 (07:57→17:12)
[2021-11-28] MEDS: Furosemide 20 MG Tab PO SCH (07:58)
[2021-11-28] MEDS: Polyethylene Glycol 3350 Powder 510 GM Bot PO SCH (07:58)
[2021-11-28] MEDS: Acetaminophen 500 MG Tab PO SCH ×3 (07:58→19:40)
[2021-11-28] MEDS: Calcium Carbonate 750 MG Tab.Chew PO SCH (07:58)
[2021-11-28] MEDS: Cyanocobalamin (Vitamin B12) 1,000 MCG Tab PO SCH (07:59)
[2021-11-28] MEDS: BUPROPION 300 MG PO SCH (19:37)
[2021-11-28] MEDS: LEVOTHYROXINE 137 MCG PO SCH (19:38)
[2021-11-28] MEDS: Menthol 10%/Methyl Salicylate 30% 85 GM Tube TOP PRN (19:41)
[2021-11-28] MEDS: guaiFENesin/Dextromethorphan 100-10 MG/5 ML Soln 10 ML Cup PO PRN (19:41)
[2021-11-29] MEDS: Albuterol/Ipratropium 3.0-0.5 MG/3 ML Neb Soln NEB SCH ×2 (07:33→19:38)
[2021-11-29] MEDS: Calcium Carbonate 750 MG Tab.Chew PO SCH (07:33)
[2021-11-29] MEDS: traMADol 50 MG Tab PO PRN (07:34)
[2021-11-29] MEDS: Potassium Chloride 20 MEQ Tab.ER PO SCH ×2 (07:35→17:11)
[2021-11-29] MEDS: Citalopram 20 MG Tab PO SCH (07:35)
[2021-11-29] MEDS: Furosemide 20 MG Tab PO SCH (07:36)
[2021-11-29] MEDS: Polyethylene Glycol 3350 Powder 510 GM Bot PO SCH (07:36)
[2021-11-29] MEDS: Cyanocobalamin (Vitamin B12) 1,000 MCG Tab PO SCH (07:37)
[2021-11-29] MEDS: Acetaminophen 500 MG Tab PO SCH ×3 (07:37→19:39)
[2021-11-29] MEDS: BUPROPION 300 MG PO SCH (19:38)
[2021-11-29] MEDS: LEVOTHYROXINE 137 MCG PO SCH (19:38)
[2021-11-30] MEDS: Citalopram 20 MG Tab PO SCH (07:34)
[2021-11-30] MEDS: Polyethylene Glycol 3350 Powder 510 GM Bot PO SCH (07:34)
[2021-11-30] MEDS: Furosemide 20 MG Tab PO SCH (07:35)
[2021-11-30] MEDS: Potassium Chloride 20 MEQ Tab.ER PO SCH ×2 (07:35→18:04)
[2021-11-30] MEDS: Calcium Carbonate 750 MG Tab.Chew PO SCH (07:36)
[2021-11-30] MEDS: Cyanocobalamin (Vitamin B12) 1,000 MCG Tab PO SCH (07:36)
[2021-11-30] MEDS: Albuterol/Ipratropium 3.0-0.5 MG/3 ML Neb Soln NEB SCH ×2 (07:36→19:13)
[2021-11-30] MEDS: Acetaminophen 500 MG Tab PO SCH ×3 (07:37→19:14)
[2021-11-30] MEDS: traMADol 50 MG Tab PO PRN (07:37)
[2021-11-30] MEDS: BUPROPION 300 MG PO SCH (19:14)
[2021-11-30] MEDS: LEVOTHYROXINE 137 MCG PO SCH (19:14)
[2021-11-30] MEDS: Menthol 10%/Methyl Salicylate 30% 85 GM Tube TOP PRN (19:15)
[2021-12-01] MEDS: Calcium Carbonate 750 MG Tab.Chew PO SCH (07:22)
[2021-12-01] MEDS: Potassium Chloride 20 MEQ Tab.ER PO SCH ×2 (07:23→17:34)
[2021-12-01] MEDS: Polyethylene Glycol 3350 Powder 510 GM Bot PO SCH (07:23)
[2021-12-01] MEDS: Citalopram 20 MG Tab PO SCH (07:23)
[2021-12-01] MEDS: Furosemide 20 MG Tab PO SCH (07:24)
[2021-12-01] MEDS: Albuterol/Ipratropium 3.0-0.5 MG/3 ML Neb Soln NEB SCH ×2 (07:24→19:30)
[2021-12-01] MEDS: Cyanocobalamin (Vitamin B12) 1,000 MCG Tab PO SCH (07:25)
[2021-12-01] MEDS: Acetaminophen 500 MG Tab PO SCH ×3 (07:25→19:30)
[2021-12-01] MEDS: LEVOTHYROXINE 137 MCG PO SCH (19:30)
[2021-12-01] MEDS: BUPROPION 300 MG PO SCH (19:30)
[2021-12-01] MEDS: Menthol 10%/Methyl Salicylate 30% 85 GM Tube TOP PRN (19:31)
[2021-12-01] MEDS: guaiFENesin/Dextromethorphan 100-10 MG/5 ML Soln 10 ML Cup PO PRN (19:32)
[2021-12-02] MEDS: Albuterol/Ipratropium 3.0-0.5 MG/3 ML Neb Soln NEB SCH ×2 (07:11→19:18)
[2021-12-02] MEDS: Calcium Carbonate 750 MG Tab.Chew PO SCH (07:11)
[2021-12-02] MEDS: Potassium Chloride 20 MEQ Tab.ER PO SCH ×2 (07:12→17:01)
[2021-12-02] MEDS: Citalopram 20 MG Tab PO SCH (07:12)
[2021-12-02] MEDS: Polyethylene Glycol 3350 Powder 510 GM Bot PO SCH (07:12)
[2021-12-02] MEDS: Cyanocobalamin (Vitamin B12) 1,000 MCG Tab PO SCH (07:13)
[2021-12-02] MEDS: Acetaminophen 500 MG Tab PO SCH ×3 (07:13→19:19)
[2021-12-02] MEDS: Furosemide 20 MG Tab PO SCH (07:13)
[2021-12-02] MEDS: LEVOTHYROXINE 137 MCG PO SCH (19:18)
[2021-12-02] MEDS: BUPROPION 300 MG PO SCH (19:18)
[2021-12-02] MEDS: guaiFENesin/Dextromethorphan 100-10 MG/5 ML Soln 10 ML Cup PO PRN (19:20)
[2021-12-02] MEDS: Menthol 10%/Methyl Salicylate 30% 85 GM Tube TOP PRN (19:20)
[2021-12-03] MEDS: Polyethylene Glycol 3350 Powder 510 GM Bot PO SCH (07:30)
[2021-12-03] MEDS: traMADol 50 MG Tab PO PRN (07:31)
[2021-12-03] MEDS: Calcium Carbonate 750 MG Tab.Chew PO SCH (07:32)
[2021-12-03] MEDS: Acetaminophen 500 MG Tab PO SCH ×3 (07:32→19:38)
[2021-12-03] MEDS: Potassium Chloride 20 MEQ Tab.ER PO SCH ×2 (07:33→17:14)
[2021-12-03] MEDS: Albuterol/Ipratropium 3.0-0.5 MG/3 ML Neb Soln NEB SCH ×2 (07:33→19:36)
[2021-12-03] MEDS: Citalopram 20 MG Tab PO SCH (07:33)
[2021-12-03] MEDS: Furosemide 20 MG Tab PO SCH (07:34)
[2021-12-03] MEDS: Cyanocobalamin (Vitamin B12) 1,000 MCG Tab PO SCH (07:34)
[2021-12-03] MEDS: Menthol 10%/Methyl Salicylate 30% 85 GM Tube TOP PRN (19:37)
[2021-12-03] MEDS: LEVOTHYROXINE 137 MCG PO SCH (19:37)
[2021-12-03] MEDS: BUPROPION 300 MG PO SCH (19:38)
[2021-12-03] MEDS: guaiFENesin/Dextromethorphan 100-10 MG/5 ML Soln 10 ML Cup PO PRN (19:39)
[2021-12-04] MEDS: traMADol 50 MG Tab PO PRN (07:39)
[2021-12-04] MEDS: Calcium Carbonate 750 MG Tab.Chew PO SCH (07:40)
[2021-12-04] MEDS: Acetaminophen 500 MG Tab PO SCH ×3 (07:40→19:36)
[2021-12-04] MEDS: Polyethylene Glycol 3350 Powder 510 GM Bot PO SCH (07:40)
[2021-12-04] MEDS: Potassium Chloride 20 MEQ Tab.ER PO SCH ×2 (07:41→17:09)
[2021-12-04] MEDS: Citalopram 20 MG Tab PO SCH (07:41)
[2021-12-04] MEDS: Albuterol/Ipratropium 3.0-0.5 MG/3 ML Neb Soln NEB SCH ×2 (07:41→19:36)
[2021-12-04] MEDS: Furosemide 20 MG Tab PO SCH (07:41)
[2021-12-04] MEDS: Cyanocobalamin (Vitamin B12) 1,000 MCG Tab PO SCH (07:42)
[2021-12-04] MEDS: LEVOTHYROXINE 137 MCG PO SCH (19:36)
[2021-12-04] MEDS: BUPROPION 300 MG PO SCH (19:36)
[2021-12-04] MEDS: Menthol 10%/Methyl Salicylate 30% 85 GM Tube TOP PRN (19:37)
[2021-12-05] MEDS: Albuterol/Ipratropium 3.0-0.5 MG/3 ML Neb Soln NEB SCH ×2 (07:38→19:27)
[2021-12-05] MEDS: traMADol 50 MG Tab PO PRN (07:39)
[2021-12-05] MEDS: Calcium Carbonate 750 MG Tab.Chew PO SCH (07:39)
[2021-12-05] MEDS: Acetaminophen 500 MG Tab PO SCH ×3 (07:40→19:28)
[2021-12-05] MEDS: Citalopram 20 MG Tab PO SCH (07:45)
[2021-12-05] MEDS: Polyethylene Glycol 3350 Powder 510 GM Bot PO SCH (07:46)
[2021-12-05] MEDS: Furosemide 20 MG Tab PO SCH (07:46)
[2021-12-05] MEDS: Cyanocobalamin (Vitamin B12) 1,000 MCG Tab PO SCH (07:46)
[2021-12-05] MEDS: Potassium Chloride 20 MEQ Tab.ER PO SCH ×2 (07:46→17:10)
[2021-12-05] MEDS: LEVOTHYROXINE 137 MCG PO SCH (19:27)
[2021-12-05] MEDS: BUPROPION 300 MG PO SCH (19:28)
[2021-12-06] MEDS: Furosemide 20 MG Tab PO SCH (07:50)
[2021-12-06] MEDS: Citalopram 20 MG Tab PO SCH (07:51)
[2021-12-06] MEDS: Potassium Chloride 20 MEQ Tab.ER PO SCH ×2 (07:51→18:07)
[2021-12-06] MEDS: Albuterol/Ipratropium 3.0-0.5 MG/3 ML Neb Soln NEB SCH ×2 (07:51→19:28)
[2021-12-06] MEDS: Acetaminophen 500 MG Tab PO SCH ×3 (07:52→19:27)
[2021-12-06] MEDS: Calcium Carbonate 750 MG Tab.Chew PO SCH (07:52)
[2021-12-06] MEDS: Polyethylene Glycol 3350 Powder 510 GM Bot PO SCH (07:53)
[2021-12-06] MEDS: Cyanocobalamin (Vitamin B12) 1,000 MCG Tab PO SCH (07:53)
[2021-12-06] MEDS: traMADol 50 MG Tab PO PRN (08:53)
[2021-12-06] MEDS: BUPROPION 300 MG PO SCH (19:28)
[2021-12-06] MEDS: LEVOTHYROXINE 137 MCG PO SCH (19:29)
[2021-12-07] MEDS: Furosemide 20 MG Tab PO SCH (07:17)
[2021-12-07] MEDS: Potassium Chloride 20 MEQ Tab.ER PO SCH ×2 (07:17→17:35)
[2021-12-07] MEDS: Citalopram 20 MG Tab PO SCH (07:18)
[2021-12-07] MEDS: Calcium Carbonate 750 MG Tab.Chew PO SCH (07:18)
[2021-12-07] MEDS: Albuterol/Ipratropium 3.0-0.5 MG/3 ML Neb Soln NEB SCH ×2 (07:18→19:16)
[2021-12-07] MEDS: traMADol 50 MG Tab PO PRN (07:19)
[2021-12-07] MEDS: Polyethylene Glycol 3350 Powder 510 GM Bot PO SCH (07:19)
[2021-12-07] MEDS: Acetaminophen 500 MG Tab PO SCH ×3 (07:20→19:17)
[2021-12-07] MEDS: Cyanocobalamin (Vitamin B12) 1,000 MCG Tab PO SCH (07:21)
[2021-12-07] MEDS: LEVOTHYROXINE 137 MCG PO SCH (19:16)
[2021-12-07] MEDS: BUPROPION 300 MG PO SCH (19:17)
[2021-12-07] MEDS: Menthol 10%/Methyl Salicylate 30% 85 GM Tube TOP PRN (19:18)
[2021-12-08] MEDS: Albuterol/Ipratropium 3.0-0.5 MG/3 ML Neb Soln NEB SCH ×2 (08:21→19:35)
[2021-12-08] MEDS: Furosemide 20 MG Tab PO SCH (08:22)
[2021-12-08] MEDS: Citalopram 20 MG Tab PO SCH (08:22)
[2021-12-08] MEDS: Potassium Chloride 20 MEQ Tab.ER PO SCH ×2 (08:22→18:02)
[2021-12-08] MEDS: Calcium Carbonate 750 MG Tab.Chew PO SCH (08:23)
[2021-12-08] MEDS: Acetaminophen 500 MG Tab PO SCH ×3 (08:24→19:37)
[2021-12-08] MEDS: Polyethylene Glycol 3350 Powder 510 GM Bot PO SCH (08:24)
[2021-12-08] MEDS: Cyanocobalamin (Vitamin B12) 1,000 MCG Tab PO SCH (08:26)
[2021-12-08] MEDS: traMADol 50 MG Tab PO PRN (08:35)
[2021-12-08] MEDS: LEVOTHYROXINE 137 MCG PO SCH (19:36)
[2021-12-08] MEDS: BUPROPION 300 MG PO SCH (19:37)
[2021-12-09] MEDS: Potassium Chloride 20 MEQ Tab.ER PO SCH ×2 (08:16→17:47)
[2021-12-09] MEDS: Citalopram 20 MG Tab PO SCH (08:16)
[2021-12-09] MEDS: Furosemide 20 MG Tab PO SCH (08:16)
[2021-12-09] MEDS: Albuterol/Ipratropium 3.0-0.5 MG/3 ML Neb Soln NEB SCH ×2 (08:17→19:57)
[2021-12-09] MEDS: Polyethylene Glycol 3350 Powder 510 GM Bot PO SCH (08:19)
[2021-12-09] MEDS: Calcium Carbonate 750 MG Tab.Chew PO SCH (08:19)
[2021-12-09] MEDS: Acetaminophen 500 MG Tab PO SCH ×3 (08:20→20:01)
[2021-12-09] MEDS: Cyanocobalamin (Vitamin B12) 1,000 MCG Tab PO SCH (08:21)
[2021-12-09] MEDS: traMADol 50 MG Tab PO PRN (11:58)
[2021-12-09] MEDS: LEVOTHYROXINE 137 MCG PO SCH (20:01)
[2021-12-09] MEDS: BUPROPION 300 MG PO SCH (20:01)
[2021-12-10] MEDS: Albuterol/Ipratropium 3.0-0.5 MG/3 ML Neb Soln NEB SCH ×2 (07:43→19:30)
[2021-12-10] MEDS: Calcium Carbonate 750 MG Tab.Chew PO SCH (07:47)
[2021-12-10] MEDS: traMADol 50 MG Tab PO PRN (07:47)
[2021-12-10] MEDS: Potassium Chloride 20 MEQ Tab.ER PO SCH ×2 (07:49→17:07)
[2021-12-10] MEDS: Furosemide 20 MG Tab PO SCH (07:49)
[2021-12-10] MEDS: Citalopram 20 MG Tab PO SCH (07:49)
[2021-12-10] MEDS: Acetaminophen 500 MG Tab PO SCH ×3 (07:50→19:31)
[2021-12-10] MEDS: Polyethylene Glycol 3350 Powder 510 GM Bot PO SCH (07:50)
[2021-12-10] MEDS: Cyanocobalamin (Vitamin B12) 1,000 MCG Tab PO SCH (07:51)
[2021-12-10] MEDS: LEVOTHYROXINE 137 MCG PO SCH (19:30)
[2021-12-10] MEDS: BUPROPION 300 MG PO SCH (19:31)
[2021-12-11] MEDS: traMADol 50 MG Tab PO PRN ×3 (01:21→17:42)
[2021-12-11] MEDS: Furosemide 20 MG Tab PO SCH (08:13)
[2021-12-11] MEDS: Potassium Chloride 20 MEQ Tab.ER PO SCH ×2 (08:13→17:41)
[2021-12-11] MEDS: Citalopram 20 MG Tab PO SCH (08:15)
[2021-12-11] MEDS: Albuterol/Ipratropium 3.0-0.5 MG/3 ML Neb Soln NEB SCH ×2 (08:16→19:41)
[2021-12-11] MEDS: Calcium Carbonate 750 MG Tab.Chew PO SCH (08:16)
[2021-12-11] MEDS: Polyethylene Glycol 3350 Powder 510 GM Bot PO SCH (08:16)
[2021-12-11] MEDS: Cyanocobalamin (Vitamin B12) 1,000 MCG Tab PO SCH (08:17)
[2021-12-11] MEDS: Acetaminophen 500 MG Tab PO SCH ×3 (08:17→19:41)
[2021-12-11] MEDS: LEVOTHYROXINE 137 MCG PO SCH (19:41)
[2021-12-11] MEDS: BUPROPION 300 MG PO SCH (19:41)
[2021-12-11] MEDS: Menthol 10%/Methyl Salicylate 30% 85 GM Tube TOP PRN (19:42)
[2021-12-11] MEDS: guaiFENesin/Dextromethorphan 100-10 MG/5 ML Soln 10 ML Cup PO PRN (19:44)
[2021-12-12] MEDS: Furosemide 20 MG Tab PO SCH (08:22)
[2021-12-12] MEDS: Potassium Chloride 20 MEQ Tab.ER PO SCH ×2 (08:22→17:46)
[2021-12-12] MEDS: Citalopram 20 MG Tab PO SCH (08:23)
[2021-12-12] MEDS: Polyethylene Glycol 3350 Powder 510 GM Bot PO SCH (08:24)
[2021-12-12] MEDS: Albuterol/Ipratropium 3.0-0.5 MG/3 ML Neb Soln NEB SCH ×2 (08:24→19:49)
[2021-12-12] MEDS: Acetaminophen 500 MG Tab PO SCH ×3 (08:25→19:50)
[2021-12-12] MEDS: Calcium Carbonate 750 MG Tab.Chew PO SCH (08:25)
[2021-12-12] MEDS: Cyanocobalamin (Vitamin B12) 1,000 MCG Tab PO SCH (08:26)
[2021-12-12] MEDS: LEVOTHYROXINE 137 MCG PO SCH (19:49)
[2021-12-12] MEDS: BUPROPION 300 MG PO SCH (19:50)
[2021-12-12] MEDS: Menthol 10%/Methyl Salicylate 30% 85 GM Tube TOP PRN (19:51)
[2021-12-12] MEDS: guaiFENesin/Dextromethorphan 100-10 MG/5 ML Soln 10 ML Cup PO PRN (19:52)
[2021-12-13] MEDS: Furosemide 20 MG Tab PO SCH (08:05)
[2021-12-13] MEDS: Potassium Chloride 20 MEQ Tab.ER PO SCH ×2 (08:05→17:34)
[2021-12-13] MEDS: Calcium Carbonate 750 MG Tab.Chew PO SCH (08:05)
[2021-12-13] MEDS: Citalopram 20 MG Tab PO SCH (08:05)
[2021-12-13] MEDS: Cyanocobalamin (Vitamin B12) 1,000 MCG Tab PO SCH (08:06)
[2021-12-13] MEDS: Acetaminophen 500 MG Tab PO SCH ×3 (08:07→19:43)
[2021-12-13] MEDS: Polyethylene Glycol 3350 Powder 510 GM Bot PO SCH (08:07)
[2021-12-13] MEDS: Albuterol/Ipratropium 3.0-0.5 MG/3 ML Neb Soln NEB SCH ×2 (08:08→19:40)
[2021-12-13] MEDS: traMADol 50 MG Tab PO PRN (08:10)
[2021-12-13] MEDS: LEVOTHYROXINE 137 MCG PO SCH (19:42)
[2021-12-13] MEDS: BUPROPION 300 MG PO SCH (19:42)
[2021-12-14] MEDS: Polyethylene Glycol 3350 Powder 510 GM Bot PO SCH (07:40)
[2021-12-14] MEDS: traMADol 50 MG Tab PO PRN (07:41)
[2021-12-14] MEDS: Acetaminophen 500 MG Tab PO SCH ×3 (07:41→19:17)
[2021-12-14] MEDS: Potassium Chloride 20 MEQ Tab.ER PO SCH ×2 (07:42→17:29)
[2021-12-14] MEDS: Albuterol/Ipratropium 3.0-0.5 MG/3 ML Neb Soln NEB SCH ×2 (07:42→19:17)
[2021-12-14] MEDS: Citalopram 20 MG Tab PO SCH (07:42)
[2021-12-14] MEDS: Calcium Carbonate 750 MG Tab.Chew PO SCH (07:43)
[2021-12-14] MEDS: Cyanocobalamin (Vitamin B12) 1,000 MCG Tab PO SCH (07:43)
[2021-12-14] MEDS: Furosemide 20 MG Tab PO SCH (07:43)
[2021-12-14] MEDS: LEVOTHYROXINE 137 MCG PO SCH (19:16)
[2021-12-14] MEDS: BUPROPION 300 MG PO SCH (19:16)
[2021-12-15] MEDS: traMADol 50 MG Tab PO PRN (07:37)
[2021-12-15] MEDS: Albuterol/Ipratropium 3.0-0.5 MG/3 ML Neb Soln NEB SCH ×2 (07:37→19:10)
[2021-12-15] MEDS: Acetaminophen 500 MG Tab PO SCH ×3 (07:38→19:09)
[2021-12-15] MEDS: Calcium Carbonate 750 MG Tab.Chew PO SCH (07:38)
[2021-12-15] MEDS: Furosemide 20 MG Tab PO SCH (07:39)
[2021-12-15] MEDS: Polyethylene Glycol 3350 Powder 510 GM Bot PO SCH (07:39)
[2021-12-15] MEDS: Citalopram 20 MG Tab PO SCH (07:39)
[2021-12-15] MEDS: Potassium Chloride 20 MEQ Tab.ER PO SCH ×2 (07:39→17:17)
[2021-12-15] MEDS: Cyanocobalamin (Vitamin B12) 1,000 MCG Tab PO SCH (07:40)
[2021-12-15] MEDS: LEVOTHYROXINE 137 MCG PO SCH (19:09)
[2021-12-15] MEDS: BUPROPION 300 MG PO SCH (19:09)
[2021-12-16] MEDS: Albuterol/Ipratropium 3.0-0.5 MG/3 ML Neb Soln NEB SCH ×2 (07:53→19:11)
[2021-12-16] MEDS: Citalopram 20 MG Tab PO SCH (07:54)
[2021-12-16] MEDS: traMADol 50 MG Tab PO PRN (07:54)
[2021-12-16] MEDS: Furosemide 20 MG Tab PO SCH (07:55)
[2021-12-16] MEDS: Potassium Chloride 20 MEQ Tab.ER PO SCH ×2 (07:55→17:26)
[2021-12-16] MEDS: Acetaminophen 500 MG Tab PO SCH ×3 (07:56→19:11)
[2021-12-16] MEDS: Calcium Carbonate 750 MG Tab.Chew PO SCH (07:56)
[2021-12-16] MEDS: Polyethylene Glycol 3350 Powder 510 GM Bot PO SCH (07:56)
[2021-12-16] MEDS: Cyanocobalamin (Vitamin B12) 1,000 MCG Tab PO SCH (07:57)
[2021-12-16] MEDS: BUPROPION 300 MG PO SCH (19:10)
[2021-12-16] MEDS: LEVOTHYROXINE 137 MCG PO SCH (19:10)
[2021-12-17 07:59] LABS: CHLORIDE,CL 108 mmol/L (98-107); ESTIMATED GFR > 60 mL/min; SODIUM,NA 144 mmol/L (136-145)
[2021-12-17] MEDS: Polyethylene Glycol 3350 Powder 510 GM Bot PO SCH (08:02)
[2021-12-17] MEDS: traMADol 50 MG Tab PO PRN (08:03)
[2021-12-17] MEDS: Potassium Chloride 20 MEQ Tab.ER PO SCH ×2 (08:04→17:13)
[2021-12-17] MEDS: Albuterol/Ipratropium 3.0-0.5 MG/3 ML Neb Soln NEB SCH ×2 (08:04→19:41)
[2021-12-17] MEDS: Calcium Carbonate 750 MG Tab.Chew PO SCH (08:04)
[2021-12-17] MEDS: Citalopram 20 MG Tab PO SCH (08:04)
[2021-12-17] MEDS: Acetaminophen 500 MG Tab PO SCH ×3 (08:05→19:42)
[2021-12-17] MEDS: Furosemide 20 MG Tab PO SCH (08:05)
[2021-12-17] MEDS: Cyanocobalamin (Vitamin B12) 1,000 MCG Tab PO SCH (08:06)
[2021-12-17 08:20] LABS: ANION GAP 9.8 meq/L (7-15)
[2021-12-17] MEDS: BUPROPION 300 MG PO SCH (19:42)
[2021-12-17] MEDS: LEVOTHYROXINE 137 MCG PO SCH (19:42)
[2021-12-18] MEDS: Potassium Chloride 20 MEQ Tab.ER PO SCH ×2 (07:51→17:06)
[2021-12-18] MEDS: Citalopram 20 MG Tab PO SCH (07:52)
[2021-12-18] MEDS: Albuterol/Ipratropium 3.0-0.5 MG/3 ML Neb Soln NEB SCH ×2 (07:52→19:07)
[2021-12-18] MEDS: Furosemide 20 MG Tab PO SCH (07:52)
[2021-12-18] MEDS: Cyanocobalamin (Vitamin B12) 1,000 MCG Tab PO SCH (07:53)
[2021-12-18] MEDS: Polyethylene Glycol 3350 Powder 510 GM Bot PO SCH (07:53)
[2021-12-18] MEDS: Calcium Carbonate 750 MG Tab.Chew PO SCH (07:54)
[2021-12-18] MEDS: Acetaminophen 500 MG Tab PO SCH ×3 (07:55→19:06)
[2021-12-18] MEDS: traMADol 50 MG Tab PO PRN (15:04)
[2021-12-18] MEDS: BUPROPION 300 MG PO SCH (19:07)
[2021-12-18] MEDS: LEVOTHYROXINE 137 MCG PO SCH (19:07)
[2021-12-19] MEDS: Citalopram 20 MG Tab PO SCH (07:20)
[2021-12-19] MEDS: Albuterol/Ipratropium 3.0-0.5 MG/3 ML Neb Soln NEB PRN (07:21)
[2021-12-19] MEDS: Albuterol/Ipratropium 3.0-0.5 MG/3 ML Neb Soln NEB SCH ×2 (07:21→19:47)
[2021-12-19] MEDS: Potassium Chloride 20 MEQ Tab.ER PO SCH ×2 (07:22→17:10)
[2021-12-19] MEDS: Furosemide 20 MG Tab PO SCH (07:22)
[2021-12-19] MEDS: Polyethylene Glycol 3350 Powder 510 GM Bot PO SCH (07:23)
[2021-12-19] MEDS: Calcium Carbonate 750 MG Tab.Chew PO SCH (07:23)
[2021-12-19] MEDS: Acetaminophen 500 MG Tab PO SCH ×3 (07:24→19:50)
[2021-12-19] MEDS: Cyanocobalamin (Vitamin B12) 1,000 MCG Tab PO SCH (07:26)
[2021-12-19] MEDS: traMADol 50 MG Tab PO PRN (07:27)
[2021-12-19] MEDS: LEVOTHYROXINE 137 MCG PO SCH (19:49)
[2021-12-19] MEDS: BUPROPION 300 MG PO SCH (19:49)
[2021-12-20] MEDS: Citalopram 20 MG Tab PO SCH (07:54)
[2021-12-20] MEDS: Potassium Chloride 20 MEQ Tab.ER PO SCH ×2 (07:55→17:33)
[2021-12-20] MEDS: Polyethylene Glycol 3350 Powder 510 GM Bot PO SCH (07:56)
[2021-12-20] MEDS: Furosemide 20 MG Tab PO SCH (07:56)
[2021-12-20] MEDS: Calcium Carbonate 750 MG Tab.Chew PO SCH (07:57)
[2021-12-20] MEDS: Acetaminophen 500 MG Tab PO SCH ×3 (07:58→19:17)
[2021-12-20] MEDS: Cyanocobalamin (Vitamin B12) 1,000 MCG Tab PO SCH (08:02)
[2021-12-20] MEDS: Albuterol/Ipratropium 3.0-0.5 MG/3 ML Neb Soln NEB SCH ×2 (08:03→19:15)
[2021-12-20] MEDS: LEVOTHYROXINE 137 MCG PO SCH (19:17)
[2021-12-20] MEDS: BUPROPION 300 MG PO SCH (19:17)
[2021-12-20] MEDS: Menthol 10%/Methyl Salicylate 30% 85 GM Tube TOP PRN (19:18)
[2021-12-20] MEDS: guaiFENesin/Dextromethorphan 100-10 MG/5 ML Soln 10 ML Cup PO PRN (19:19)
[2021-12-21] MEDS: Albuterol/Ipratropium 3.0-0.5 MG/3 ML Neb Soln NEB SCH ×2 (07:29→19:20)
[2021-12-21] MEDS: Citalopram 20 MG Tab PO SCH (07:30)
[2021-12-21] MEDS: Potassium Chloride 20 MEQ Tab.ER PO SCH ×2 (07:30→17:31)
[2021-12-21] MEDS: Furosemide 20 MG Tab PO SCH (07:30)
[2021-12-21] MEDS: Calcium Carbonate 750 MG Tab.Chew PO SCH (07:31)
[2021-12-21] MEDS: Acetaminophen 500 MG Tab PO SCH ×3 (07:32→19:20)
[2021-12-21] MEDS: Cyanocobalamin (Vitamin B12) 1,000 MCG Tab PO SCH (07:32)
[2021-12-21] MEDS: Polyethylene Glycol 3350 Powder 510 GM Bot PO SCH (07:33)
[2021-12-21] MEDS: LEVOTHYROXINE 137 MCG PO SCH (19:20)
[2021-12-21] MEDS: BUPROPION 300 MG PO SCH (19:20)
[2021-12-21] MEDS: guaiFENesin/Dextromethorphan 100-10 MG/5 ML Soln 10 ML Cup PO PRN (19:21)
[2021-12-21] MEDS: Menthol 10%/Methyl Salicylate 30% 85 GM Tube TOP PRN (19:22)
[2021-12-22] MEDS: Citalopram 20 MG Tab PO SCH (07:12)
[2021-12-22] MEDS: Furosemide 20 MG Tab PO SCH (07:12)
[2021-12-22] MEDS: Potassium Chloride 20 MEQ Tab.ER PO SCH ×2 (07:12→17:26)
[2021-12-22] MEDS: Polyethylene Glycol 3350 Powder 510 GM Bot PO SCH (07:13)
[2021-12-22] MEDS: Albuterol/Ipratropium 3.0-0.5 MG/3 ML Neb Soln NEB SCH ×2 (07:13→19:28)
[2021-12-22] MEDS: Calcium Carbonate 750 MG Tab.Chew PO SCH (07:13)
[2021-12-22] MEDS: Cyanocobalamin (Vitamin B12) 1,000 MCG Tab PO SCH (07:13)
[2021-12-22] MEDS: traMADol 50 MG Tab PO PRN (07:14)
[2021-12-22] MEDS: Acetaminophen 500 MG Tab PO SCH ×3 (07:14→19:28)
[2021-12-22] MEDS: LEVOTHYROXINE 137 MCG PO SCH (19:28)
[2021-12-22] MEDS: BUPROPION 300 MG PO SCH (19:28)
[2021-12-22] MEDS: guaiFENesin/Dextromethorphan 100-10 MG/5 ML Soln 10 ML Cup PO PRN (19:30)
[2021-12-23] MEDS: Calcium Carbonate 750 MG Tab.Chew PO SCH (07:16)
[2021-12-23] MEDS: Acetaminophen 500 MG Tab PO SCH ×3 (07:17→19:20)
[2021-12-23] MEDS: Polyethylene Glycol 3350 Powder 510 GM Bot PO SCH (07:17)
[2021-12-23] MEDS: Cyanocobalamin (Vitamin B12) 1,000 MCG Tab PO SCH (07:18)
[2021-12-23] MEDS: Albuterol/Ipratropium 3.0-0.5 MG/3 ML Neb Soln NEB SCH ×2 (07:18→19:19)
[2021-12-23] MEDS: Citalopram 20 MG Tab PO SCH (07:18)
[2021-12-23] MEDS: Potassium Chloride 20 MEQ Tab.ER PO SCH ×2 (07:19→17:22)
[2021-12-23] MEDS: Furosemide 20 MG Tab PO SCH (07:19)
[2021-12-23] MEDS: traMADol 50 MG Tab PO PRN (07:21)
[2021-12-23] MEDS: BUPROPION 300 MG PO SCH (19:19)
[2021-12-23] MEDS: LEVOTHYROXINE 137 MCG PO SCH (19:19)
[2021-12-23] MEDS: guaiFENesin/Dextromethorphan 100-10 MG/5 ML Soln 10 ML Cup PO PRN (19:25)
[2021-12-23] MEDS: Menthol 10%/Methyl Salicylate 30% 85 GM Tube TOP PRN (19:25)
[2021-12-24] MEDS: Potassium Chloride 20 MEQ Tab.ER PO SCH ×2 (07:36→17:14)
[2021-12-24] MEDS: Citalopram 20 MG Tab PO SCH (07:36)
[2021-12-24] MEDS: Albuterol/Ipratropium 3.0-0.5 MG/3 ML Neb Soln NEB SCH ×2 (07:36→19:12)
[2021-12-24] MEDS: Furosemide 20 MG Tab PO SCH (07:37)
[2021-12-24] MEDS: Calcium Carbonate 750 MG Tab.Chew PO SCH (07:37)
[2021-12-24] MEDS: Polyethylene Glycol 3350 Powder 510 GM Bot PO SCH (07:38)
[2021-12-24] MEDS: Acetaminophen 500 MG Tab PO SCH ×3 (07:39→19:12)
[2021-12-24] MEDS: Cyanocobalamin (Vitamin B12) 1,000 MCG Tab PO SCH (07:40)
[2021-12-24] MEDS: traMADol 50 MG Tab PO PRN (09:14)
[2021-12-24] MEDS: BUPROPION 300 MG PO SCH (19:12)
[2021-12-24] MEDS: LEVOTHYROXINE 137 MCG PO SCH (19:12)
[2021-12-25] MEDS: traMADol 50 MG Tab PO PRN (07:39)
[2021-12-25] MEDS: Cyanocobalamin (Vitamin B12) 1,000 MCG Tab PO SCH (07:40)
[2021-12-25] MEDS: Acetaminophen 500 MG Tab PO SCH ×3 (07:40→19:27)
[2021-12-25] MEDS: Polyethylene Glycol 3350 Powder 510 GM Bot PO SCH (07:41)
[2021-12-25] MEDS: Albuterol/Ipratropium 3.0-0.5 MG/3 ML Neb Soln NEB SCH ×2 (07:41→19:27)
[2021-12-25] MEDS: Citalopram 20 MG Tab PO SCH (07:41)
[2021-12-25] MEDS: Calcium Carbonate 750 MG Tab.Chew PO SCH (07:41)
[2021-12-25] MEDS: Furosemide 20 MG Tab PO SCH (07:42)
[2021-12-25] MEDS: Potassium Chloride 20 MEQ Tab.ER PO SCH ×2 (07:42→17:14)
[2021-12-25] MEDS: BUPROPION 300 MG PO SCH (19:27)
[2021-12-25] MEDS: LEVOTHYROXINE 137 MCG PO SCH (19:27)
[2021-12-26] MEDS: Potassium Chloride 20 MEQ Tab.ER PO SCH ×2 (07:32→17:12)
[2021-12-26] MEDS: Citalopram 20 MG Tab PO SCH (07:32)
[2021-12-26] MEDS: Albuterol/Ipratropium 3.0-0.5 MG/3 ML Neb Soln NEB SCH ×2 (07:33→19:25)
[2021-12-26] MEDS: Furosemide 20 MG Tab PO SCH (07:33)
[2021-12-26] MEDS: Acetaminophen 500 MG Tab PO SCH ×3 (07:34→19:26)
[2021-12-26] MEDS: Cyanocobalamin (Vitamin B12) 1,000 MCG Tab PO SCH (07:35)
[2021-12-26] MEDS: Polyethylene Glycol 3350 Powder 510 GM Bot PO SCH (07:35)
[2021-12-26] MEDS: Calcium Carbonate 750 MG Tab.Chew PO SCH (07:35)
[2021-12-26] MEDS: traMADol 50 MG Tab PO PRN (07:36)
[2021-12-26] MEDS: LEVOTHYROXINE 137 MCG PO SCH (19:26)
[2021-12-26] MEDS: BUPROPION 300 MG PO SCH (19:26)
[2021-12-26] MEDS: guaiFENesin/Dextromethorphan 100-10 MG/5 ML Soln 10 ML Cup PO PRN (19:26)
[2021-12-26] MEDS: Menthol 10%/Methyl Salicylate 30% 85 GM Tube TOP PRN (19:27)
[2021-12-27] MEDS: Citalopram 20 MG Tab PO SCH (07:37)
[2021-12-27] MEDS: Furosemide 20 MG Tab PO SCH (07:37)
[2021-12-27] MEDS: Albuterol/Ipratropium 3.0-0.5 MG/3 ML Neb Soln NEB SCH ×2 (07:38→19:31)
[2021-12-27] MEDS: Potassium Chloride 20 MEQ Tab.ER PO SCH ×2 (07:38→17:29)
[2021-12-27] MEDS: Acetaminophen 500 MG Tab PO SCH ×3 (07:39→19:32)
[2021-12-27] MEDS: Calcium Carbonate 750 MG Tab.Chew PO SCH (07:40)
[2021-12-27] MEDS: Polyethylene Glycol 3350 Powder 510 GM Bot PO SCH (07:40)
[2021-12-27] MEDS: Cyanocobalamin (Vitamin B12) 1,000 MCG Tab PO SCH (07:41)
[2021-12-27] MEDS: traMADol 50 MG Tab PO PRN (07:42)
[2021-12-27] MEDS: LEVOTHYROXINE 137 MCG PO SCH (19:32)
[2021-12-27] MEDS: BUPROPION 300 MG PO SCH (19:32)
[2021-12-27] MEDS: Menthol 10%/Methyl Salicylate 30% 85 GM Tube TOP PRN (19:33)
[2021-12-27] MEDS: guaiFENesin/Dextromethorphan 100-10 MG/5 ML Soln 10 ML Cup PO PRN (19:33)
[2021-12-28] MEDS: Citalopram 20 MG Tab PO SCH (07:59)
[2021-12-28] MEDS: Potassium Chloride 20 MEQ Tab.ER PO SCH ×2 (08:00→18:06)
[2021-12-28] MEDS: Furosemide 20 MG Tab PO SCH (08:00)
[2021-12-28] MEDS: Albuterol/Ipratropium 3.0-0.5 MG/3 ML Neb Soln NEB SCH ×2 (08:00→19:32)
[2021-12-28] MEDS: Calcium Carbonate 750 MG Tab.Chew PO SCH (08:01)
[2021-12-28] MEDS: Polyethylene Glycol 3350 Powder 510 GM Bot PO SCH (08:01)
[2021-12-28] MEDS: Acetaminophen 500 MG Tab PO SCH ×3 (08:02→19:35)
[2021-12-28] MEDS: Cyanocobalamin (Vitamin B12) 1,000 MCG Tab PO SCH (08:03)
[2021-12-28] MEDS: traMADol 50 MG Tab PO PRN (10:55)
[2021-12-28] MEDS: LEVOTHYROXINE 137 MCG PO SCH (19:34)
[2021-12-28] MEDS: BUPROPION 300 MG PO SCH (19:35)
[2021-12-29] MEDS: Albuterol/Ipratropium 3.0-0.5 MG/3 ML Neb Soln NEB SCH ×2 (07:16→19:52)
[2021-12-29] MEDS: Citalopram 20 MG Tab PO SCH (07:50)
[2021-12-29] MEDS: Potassium Chloride 20 MEQ Tab.ER PO SCH ×2 (07:50→17:41)
[2021-12-29] MEDS: Furosemide 20 MG Tab PO SCH (07:51)
[2021-12-29] MEDS: Polyethylene Glycol 3350 Powder 510 GM Bot PO SCH (07:52)
[2021-12-29] MEDS: Calcium Carbonate 750 MG Tab.Chew PO SCH (07:52)
[2021-12-29] MEDS: Acetaminophen 500 MG Tab PO SCH ×3 (07:53→19:54)
[2021-12-29] MEDS: Cyanocobalamin (Vitamin B12) 1,000 MCG Tab PO SCH (07:54)
[2021-12-29] MEDS: BUPROPION 300 MG PO SCH (19:53)
[2021-12-29] MEDS: LEVOTHYROXINE 137 MCG PO SCH (19:53)
[2021-12-30] MEDS: Albuterol/Ipratropium 3.0-0.5 MG/3 ML Neb Soln NEB SCH ×2 (07:45→19:45)
[2021-12-30] MEDS: Potassium Chloride 20 MEQ Tab.ER PO SCH ×2 (07:46→17:23)
[2021-12-30] MEDS: Furosemide 20 MG Tab PO SCH (07:46)
[2021-12-30] MEDS: Citalopram 20 MG Tab PO SCH (07:46)
[2021-12-30] MEDS: Polyethylene Glycol 3350 Powder 510 GM Bot PO SCH (07:47)
[2021-12-30] MEDS: Calcium Carbonate 750 MG Tab.Chew PO SCH (07:47)
[2021-12-30] MEDS: Acetaminophen 500 MG Tab PO SCH ×3 (07:48→19:50)
[2021-12-30] MEDS: Cyanocobalamin (Vitamin B12) 1,000 MCG Tab PO SCH (07:48)
[2021-12-30] MEDS: BUPROPION 300 MG PO SCH (19:50)
[2021-12-30] MEDS: LEVOTHYROXINE 137 MCG PO SCH (19:50)
[2021-12-31] MEDS: Citalopram 20 MG Tab PO SCH (07:26)
[2021-12-31] MEDS: Potassium Chloride 20 MEQ Tab.ER PO SCH ×2 (07:27→17:33)
[2021-12-31] MEDS: Furosemide 20 MG Tab PO SCH (07:27)
[2021-12-31] MEDS: Calcium Carbonate 750 MG Tab.Chew PO SCH (07:27)
[2021-12-31] MEDS: Acetaminophen 500 MG Tab PO SCH ×3 (07:28→19:24)
[2021-12-31] MEDS: Cyanocobalamin (Vitamin B12) 1,000 MCG Tab PO SCH (07:29)
[2021-12-31] MEDS: Albuterol/Ipratropium 3.0-0.5 MG/3 ML Neb Soln NEB SCH ×2 (07:29→19:23)
[2021-12-31] MEDS: Polyethylene Glycol 3350 Powder 510 GM Bot PO SCH (07:29)
[2021-12-31] MEDS: LEVOTHYROXINE 137 MCG PO SCH (19:23)
[2021-12-31] MEDS: BUPROPION 300 MG PO SCH (19:24)
[2021-12-31] MEDS: Menthol 10%/Methyl Salicylate 30% 85 GM Tube TOP PRN (19:25)
[2021-12-31] MEDS: guaiFENesin/Dextromethorphan 100-10 MG/5 ML Soln 10 ML Cup PO PRN (19:30)
[2022-01-01] MEDS: Furosemide 20 MG Tab PO SCH (07:26)
[2022-01-01] MEDS: Potassium Chloride 20 MEQ Tab.ER PO SCH ×2 (07:26→16:59)
[2022-01-01] MEDS: Polyethylene Glycol 3350 Powder 510 GM Bot PO SCH (07:26)
[2022-01-01] MEDS: Albuterol/Ipratropium 3.0-0.5 MG/3 ML Neb Soln NEB SCH ×2 (07:26→19:41)
[2022-01-01] MEDS: Citalopram 20 MG Tab PO SCH (07:27)
[2022-01-01] MEDS: Calcium Carbonate 750 MG Tab.Chew PO SCH (07:27)
[2022-01-01] MEDS: Cyanocobalamin (Vitamin B12) 1,000 MCG Tab PO SCH (07:28)
[2022-01-01] MEDS: Acetaminophen 500 MG Tab PO SCH ×3 (07:28→19:42)
[2022-01-01] MEDS: BUPROPION 300 MG PO SCH (19:41)
[2022-01-01] MEDS: LEVOTHYROXINE 137 MCG PO SCH (19:41)
[2022-01-01] MEDS: Menthol 10%/Methyl Salicylate 30% 85 GM Tube TOP PRN (19:43)
[2022-01-01] MEDS: guaiFENesin/Dextromethorphan 100-10 MG/5 ML Soln 10 ML Cup PO PRN (19:43)
[2022-01-02] MEDS: Furosemide 20 MG Tab PO SCH (07:40)
[2022-01-02] MEDS: Citalopram 20 MG Tab PO SCH (07:41)
[2022-01-02] MEDS: Albuterol/Ipratropium 3.0-0.5 MG/3 ML Neb Soln NEB SCH ×2 (07:41→19:17)
[2022-01-02] MEDS: Polyethylene Glycol 3350 Powder 510 GM Bot PO SCH (07:43)
[2022-01-02] MEDS: Potassium Chloride 20 MEQ Tab.ER PO SCH ×2 (07:43→17:42)
[2022-01-02] MEDS: Calcium Carbonate 750 MG Tab.Chew PO SCH (07:44)
[2022-01-02] MEDS: Acetaminophen 500 MG Tab PO SCH ×3 (07:45→19:18)
[2022-01-02] MEDS: Cyanocobalamin (Vitamin B12) 1,000 MCG Tab PO SCH (07:46)
[2022-01-02] MEDS: BUPROPION 300 MG PO SCH (19:17)
[2022-01-02] MEDS: LEVOTHYROXINE 137 MCG PO SCH (19:17)
[2022-01-02] MEDS: guaiFENesin/Dextromethorphan 100-10 MG/5 ML Soln 10 ML Cup PO PRN (19:19)
[2022-01-02] MEDS: Menthol 10%/Methyl Salicylate 30% 85 GM Tube TOP PRN (19:19)
[2022-01-03] MEDS: Citalopram 20 MG Tab PO SCH (07:34)
[2022-01-03] MEDS: Potassium Chloride 20 MEQ Tab.ER PO SCH ×2 (07:34→17:34)
[2022-01-03] MEDS: Furosemide 20 MG Tab PO SCH (07:34)
[2022-01-03] MEDS: traMADol 50 MG Tab PO PRN ×2 (07:35→17:34)
[2022-01-03] MEDS: Polyethylene Glycol 3350 Powder 510 GM Bot PO SCH (07:36)
[2022-01-03] MEDS: Calcium Carbonate 750 MG Tab.Chew PO SCH (07:36)
[2022-01-03] MEDS: Albuterol/Ipratropium 3.0-0.5 MG/3 ML Neb Soln NEB SCH ×2 (07:37→19:42)
[2022-01-03] MEDS: Acetaminophen 500 MG Tab PO SCH ×3 (07:37→19:45)
[2022-01-03] MEDS: Cyanocobalamin (Vitamin B12) 1,000 MCG Tab PO SCH (07:38)
[2022-01-03] MEDS: LEVOTHYROXINE 137 MCG PO SCH (19:45)
[2022-01-03] MEDS: BUPROPION 300 MG PO SCH (19:45)
[2022-01-04] MEDS: traMADol 50 MG Tab PO PRN (07:54)
[2022-01-04] MEDS: Acetaminophen 500 MG Tab PO SCH ×3 (07:55→19:25)
[2022-01-04] MEDS: Polyethylene Glycol 3350 Powder 510 GM Bot PO SCH (07:57)
[2022-01-04] MEDS: Citalopram 20 MG Tab PO SCH (07:57)
[2022-01-04] MEDS: Calcium Carbonate 750 MG Tab.Chew PO SCH (07:57)
[2022-01-04] MEDS: Cyanocobalamin (Vitamin B12) 1,000 MCG Tab PO SCH (07:58)
[2022-01-04] MEDS: Furosemide 20 MG Tab PO SCH (07:58)
[2022-01-04] MEDS: Potassium Chloride 20 MEQ Tab.ER PO SCH ×2 (07:58→17:18)
[2022-01-04] MEDS: Albuterol/Ipratropium 3.0-0.5 MG/3 ML Neb Soln NEB SCH ×2 (07:58→19:21)
[2022-01-04] MEDS: Menthol 10%/Methyl Salicylate 30% 85 GM Tube TOP PRN (17:20)
[2022-01-04] MEDS: LEVOTHYROXINE 137 MCG PO SCH (19:21)
[2022-01-04] MEDS: BUPROPION 300 MG PO SCH (19:25)
[2022-01-05] MEDS: Menthol 10%/Methyl Salicylate 30% 85 GM Tube TOP PRN (07:30)
[2022-01-05] MEDS: traMADol 50 MG Tab PO PRN (07:31)
[2022-01-05] MEDS: Acetaminophen 500 MG Tab PO SCH ×3 (07:32→19:18)
[2022-01-05] MEDS: Albuterol/Ipratropium 3.0-0.5 MG/3 ML Neb Soln NEB SCH ×2 (07:33→19:18)
[2022-01-05] MEDS: Polyethylene Glycol 3350 Powder 510 GM Bot PO SCH (07:33)
[2022-01-05] MEDS: Calcium Carbonate 750 MG Tab.Chew PO SCH (07:33)
[2022-01-05] MEDS: Citalopram 20 MG Tab PO SCH (07:34)
[2022-01-05] MEDS: Potassium Chloride 20 MEQ Tab.ER PO SCH ×2 (07:34→17:08)
[2022-01-05] MEDS: Furosemide 20 MG Tab PO SCH (07:34)
[2022-01-05] MEDS: Cyanocobalamin (Vitamin B12) 1,000 MCG Tab PO SCH (07:35)
[2022-01-05] MEDS: LEVOTHYROXINE 137 MCG PO SCH (19:17)
[2022-01-05] MEDS: BUPROPION 300 MG PO SCH (19:17)
[2022-01-06] MEDS: Polyethylene Glycol 3350 Powder 510 GM Bot PO SCH (07:46)
[2022-01-06] MEDS: traMADol 50 MG Tab PO PRN (07:47)
[2022-01-06] MEDS: Calcium Carbonate 750 MG Tab.Chew PO SCH (07:48)
[2022-01-06] MEDS: Acetaminophen 500 MG Tab PO SCH ×3 (07:48→19:23)
[2022-01-06] MEDS: Potassium Chloride 20 MEQ Tab.ER PO SCH ×2 (07:49→17:05)
[2022-01-06] MEDS: Citalopram 20 MG Tab PO SCH (07:49)
[2022-01-06] MEDS: Albuterol/Ipratropium 3.0-0.5 MG/3 ML Neb Soln NEB SCH ×2 (07:49→19:23)
[2022-01-06] MEDS: Furosemide 20 MG Tab PO SCH (07:49)
[2022-01-06] MEDS: Cyanocobalamin (Vitamin B12) 1,000 MCG Tab PO SCH (07:50)
[2022-01-06] MEDS: Menthol 10%/Methyl Salicylate 30% 85 GM Tube TOP PRN (11:14)
[2022-01-06] MEDS: BUPROPION 300 MG PO SCH (19:22)
[2022-01-06] MEDS: LEVOTHYROXINE 137 MCG PO SCH (19:22)
[2022-01-07] MEDS: Potassium Chloride 20 MEQ Tab.ER PO SCH ×2 (07:47→17:21)
[2022-01-07] MEDS: Citalopram 20 MG Tab PO SCH (07:47)
[2022-01-07] MEDS: Albuterol/Ipratropium 3.0-0.5 MG/3 ML Neb Soln NEB SCH ×2 (07:47→19:48)
[2022-01-07] MEDS: Furosemide 20 MG Tab PO SCH (07:48)
[2022-01-07] MEDS: Polyethylene Glycol 3350 Powder 510 GM Bot PO SCH (07:48)
[2022-01-07] MEDS: Calcium Carbonate 750 MG Tab.Chew PO SCH (07:49)
[2022-01-07] MEDS: Acetaminophen 500 MG Tab PO SCH ×3 (07:49→19:49)
[2022-01-07] MEDS: Cyanocobalamin (Vitamin B12) 1,000 MCG Tab PO SCH (07:51)
[2022-01-07] MEDS: traMADol 50 MG Tab PO PRN (17:23)
[2022-01-07] MEDS: BUPROPION 300 MG PO SCH (19:48)
[2022-01-07] MEDS: LEVOTHYROXINE 137 MCG PO SCH (19:49)
[2022-01-07] MEDS: Menthol 10%/Methyl Salicylate 30% 85 GM Tube TOP PRN (19:51)
[2022-01-08] MEDS: traMADol 50 MG Tab PO PRN ×2 (05:09→17:18)
[2022-01-08] MEDS: Albuterol/Ipratropium 3.0-0.5 MG/3 ML Neb Soln NEB SCH ×2 (07:37→19:39)
[2022-01-08] MEDS: Polyethylene Glycol 3350 Powder 510 GM Bot PO SCH (07:38)
[2022-01-08] MEDS: Acetaminophen 500 MG Tab PO SCH ×3 (07:39→19:39)
[2022-01-08] MEDS: Calcium Carbonate 750 MG Tab.Chew PO SCH (07:39)
[2022-01-08] MEDS: Cyanocobalamin (Vitamin B12) 1,000 MCG Tab PO SCH (07:39)
[2022-01-08] MEDS: Citalopram 20 MG Tab PO SCH (07:40)
[2022-01-08] MEDS: Potassium Chloride 20 MEQ Tab.ER PO SCH ×2 (07:40→17:18)
[2022-01-08] MEDS: Furosemide 20 MG Tab PO SCH (07:40)
[2022-01-08] MEDS: BUPROPION 300 MG PO SCH (19:38)
[2022-01-08] MEDS: LEVOTHYROXINE 137 MCG PO SCH (19:38)
[2022-01-09] MEDS: Citalopram 20 MG Tab PO SCH (07:10)
[2022-01-09] MEDS: Albuterol/Ipratropium 3.0-0.5 MG/3 ML Neb Soln NEB SCH ×2 (07:10→19:40)
[2022-01-09] MEDS: Potassium Chloride 20 MEQ Tab.ER PO SCH ×2 (07:10→17:06)
[2022-01-09] MEDS: Furosemide 20 MG Tab PO SCH (07:10)
[2022-01-09] MEDS: traMADol 50 MG Tab PO PRN (07:11)
[2022-01-09] MEDS: Calcium Carbonate 750 MG Tab.Chew PO SCH (07:12)
[2022-01-09] MEDS: Acetaminophen 500 MG Tab PO SCH ×3 (07:12→19:42)
[2022-01-09] MEDS: Polyethylene Glycol 3350 Powder 510 GM Bot PO SCH (07:12)
[2022-01-09] MEDS: Cyanocobalamin (Vitamin B12) 1,000 MCG Tab PO SCH (07:13)
[2022-01-09] MEDS: guaiFENesin 600 MG Tab.ER PO PRN (17:06)
[2022-01-09] MEDS: LEVOTHYROXINE 137 MCG PO SCH (19:42)
[2022-01-09] MEDS: BUPROPION 300 MG PO SCH (19:42)
[2022-01-10] MEDS: Furosemide 20 MG Tab PO SCH (08:00)
[2022-01-10] MEDS: Citalopram 20 MG Tab PO SCH (08:06)
[2022-01-10] MEDS: Potassium Chloride 20 MEQ Tab.ER PO SCH ×2 (08:06→17:13)
[2022-01-10] MEDS: Albuterol/Ipratropium 3.0-0.5 MG/3 ML Neb Soln NEB SCH ×2 (08:07→19:49)
[2022-01-10] MEDS: Calcium Carbonate 750 MG Tab.Chew PO SCH (08:08)
[2022-01-10] MEDS: Acetaminophen 500 MG Tab PO SCH ×3 (08:08→19:52)
[2022-01-10] MEDS: Cyanocobalamin (Vitamin B12) 1,000 MCG Tab PO SCH (08:09)
[2022-01-10] MEDS: Polyethylene Glycol 3350 Powder 510 GM Bot PO SCH (08:09)
[2022-01-10] MEDS: LEVOTHYROXINE 137 MCG PO SCH (19:52)
[2022-01-10] MEDS: BUPROPION 300 MG PO SCH (19:52)
[2022-01-11] MEDS: Polyethylene Glycol 3350 Powder 510 GM Bot PO SCH (07:54)
[2022-01-11] MEDS: Potassium Chloride 20 MEQ Tab.ER PO SCH ×2 (07:54→17:55)
[2022-01-11] MEDS: Acetaminophen 500 MG Tab PO SCH ×3 (07:55→19:35)
[2022-01-11] MEDS: Furosemide 20 MG Tab PO SCH (07:55)
[2022-01-11] MEDS: Calcium Carbonate 750 MG Tab.Chew PO SCH (07:55)
[2022-01-11] MEDS: Citalopram 20 MG Tab PO SCH (07:55)
[2022-01-11] MEDS: Albuterol/Ipratropium 3.0-0.5 MG/3 ML Neb Soln NEB SCH ×2 (07:56→19:34)
[2022-01-11] MEDS: Cyanocobalamin (Vitamin B12) 1,000 MCG Tab PO SCH (07:57)
[2022-01-11] MEDS: LEVOTHYROXINE 137 MCG PO SCH (19:34)
[2022-01-11] MEDS: BUPROPION 300 MG PO SCH (19:35)
[2022-01-11] MEDS: Menthol 10%/Methyl Salicylate 30% 85 GM Tube TOP PRN (19:36)
[2022-01-11] MEDS: guaiFENesin 600 MG Tab.ER PO PRN (19:40)
[2022-01-12] MEDS: Citalopram 20 MG Tab PO SCH (07:28)
[2022-01-12] MEDS: Potassium Chloride 20 MEQ Tab.ER PO SCH ×2 (07:28→17:07)
[2022-01-12] MEDS: Furosemide 20 MG Tab PO SCH (07:28)
[2022-01-12] MEDS: Polyethylene Glycol 3350 Powder 510 GM Bot PO SCH (07:30)
[2022-01-12] MEDS: Albuterol/Ipratropium 3.0-0.5 MG/3 ML Neb Soln NEB SCH ×2 (07:30→19:15)
[2022-01-12] MEDS: Calcium Carbonate 750 MG Tab.Chew PO SCH (07:31)
[2022-01-12] MEDS: Acetaminophen 500 MG Tab PO SCH ×3 (07:31→19:16)
[2022-01-12] MEDS: Cyanocobalamin (Vitamin B12) 1,000 MCG Tab PO SCH (07:33)
[2022-01-12] MEDS: traMADol 50 MG Tab PO PRN (07:37)
[2022-01-12] MEDS: BUPROPION 300 MG PO SCH (19:15)
[2022-01-12] MEDS: LEVOTHYROXINE 137 MCG PO SCH (19:15)
[2022-01-12] MEDS: Menthol 10%/Methyl Salicylate 30% 85 GM Tube TOP PRN (19:17)
[2022-01-12] MEDS: guaiFENesin 600 MG Tab.ER PO PRN (19:17)
[2022-01-13] MEDS: Calcium Carbonate 750 MG Tab.Chew PO SCH (07:06)
[2022-01-13] MEDS: Potassium Chloride 20 MEQ Tab.ER PO SCH ×2 (07:07→17:17)
[2022-01-13] MEDS: Citalopram 20 MG Tab PO SCH (07:07)
[2022-01-13] MEDS: Furosemide 20 MG Tab PO SCH (07:08)
[2022-01-13] MEDS: Albuterol/Ipratropium 3.0-0.5 MG/3 ML Neb Soln NEB SCH ×2 (07:08→19:34)
[2022-01-13] MEDS: Acetaminophen 500 MG Tab PO SCH ×3 (07:09→19:34)
[2022-01-13] MEDS: Cyanocobalamin (Vitamin B12) 1,000 MCG Tab PO SCH (07:09)
[2022-01-13] MEDS: Polyethylene Glycol 3350 Powder 510 GM Bot PO SCH (07:09)
[2022-01-13] MEDS: traMADol 50 MG Tab PO PRN (07:10)
[2022-01-13] MEDS: Menthol 10%/Methyl Salicylate 30% 85 GM Tube TOP PRN (19:33)
[2022-01-13] MEDS: BUPROPION 300 MG PO SCH (19:34)
[2022-01-13] MEDS: LEVOTHYROXINE 137 MCG PO SCH (19:34)
[2022-01-13] MEDS: guaiFENesin 600 MG Tab.ER PO PRN (19:35)
[2022-01-14] MEDS: traMADol 50 MG Tab PO PRN (07:59)
[2022-01-14] MEDS: Acetaminophen 500 MG Tab PO SCH ×3 (08:00→19:15)
[2022-01-14] MEDS: Calcium Carbonate 750 MG Tab.Chew PO SCH (08:00)
[2022-01-14] MEDS: Polyethylene Glycol 3350 Powder 510 GM Bot PO SCH (08:01)
[2022-01-14] MEDS: Albuterol/Ipratropium 3.0-0.5 MG/3 ML Neb Soln NEB SCH ×2 (08:01→19:14)
[2022-01-14] MEDS: Citalopram 20 MG Tab PO SCH (08:01)
[2022-01-14] MEDS: Cyanocobalamin (Vitamin B12) 1,000 MCG Tab PO SCH (08:02)
[2022-01-14] MEDS: Furosemide 20 MG Tab PO SCH (08:02)
[2022-01-14] MEDS: Potassium Chloride 20 MEQ Tab.ER PO SCH ×2 (08:02→17:27)
[2022-01-14] MEDS: guaiFENesin 600 MG Tab.ER PO PRN ×2 (08:03→20:10)
[2022-01-14] MEDS: LEVOTHYROXINE 137 MCG PO SCH (19:15)
[2022-01-14] MEDS: BUPROPION 300 MG PO SCH (19:15)
[2022-01-14] MEDS: Menthol 10%/Methyl Salicylate 30% 85 GM Tube TOP PRN (19:16)
[2022-01-15] MEDS: traMADol 50 MG Tab PO PRN (07:56)
[2022-01-15] MEDS: guaiFENesin 600 MG Tab.ER PO PRN ×2 (07:57→19:57)
[2022-01-15] MEDS: Citalopram 20 MG Tab PO SCH (08:00)
[2022-01-15] MEDS: Albuterol/Ipratropium 3.0-0.5 MG/3 ML Neb Soln NEB SCH ×2 (08:00→19:40)
[2022-01-15] MEDS: Furosemide 20 MG Tab PO SCH (08:01)
[2022-01-15] MEDS: Potassium Chloride 20 MEQ Tab.ER PO SCH ×2 (08:01→17:27)
[2022-01-15] MEDS: Polyethylene Glycol 3350 Powder 510 GM Bot PO SCH (08:01)
[2022-01-15] MEDS: Acetaminophen 500 MG Tab PO SCH ×3 (08:02→19:43)
[2022-01-15] MEDS: Calcium Carbonate 750 MG Tab.Chew PO SCH (08:02)
[2022-01-15] MEDS: Cyanocobalamin (Vitamin B12) 1,000 MCG Tab PO SCH (08:03)
[2022-01-15] MEDS: LEVOTHYROXINE 137 MCG PO SCH (19:43)
[2022-01-15] MEDS: BUPROPION 300 MG PO SCH (19:43)
[2022-01-15] MEDS: Menthol 10%/Methyl Salicylate 30% 85 GM Tube TOP PRN (19:44)
[2022-01-16] MEDS: traMADol 50 MG Tab PO PRN (03:32)
[2022-01-16] MEDS: Polyethylene Glycol 3350 Powder 510 GM Bot PO SCH (07:10)
[2022-01-16] MEDS: Citalopram 20 MG Tab PO SCH (07:10)
[2022-01-16] MEDS: Potassium Chloride 20 MEQ Tab.ER PO SCH ×2 (07:10→17:32)
[2022-01-16] MEDS: Furosemide 20 MG Tab PO SCH (07:11)
[2022-01-16] MEDS: Albuterol/Ipratropium 3.0-0.5 MG/3 ML Neb Soln NEB SCH ×2 (07:11→19:48)
[2022-01-16] MEDS: Calcium Carbonate 750 MG Tab.Chew PO SCH (07:11)
[2022-01-16] MEDS: Cyanocobalamin (Vitamin B12) 1,000 MCG Tab PO SCH (07:12)
[2022-01-16] MEDS: Acetaminophen 500 MG Tab PO SCH ×3 (07:12→19:49)
[2022-01-16] MEDS: LEVOTHYROXINE 137 MCG PO SCH (19:49)
[2022-01-16] MEDS: guaiFENesin 600 MG Tab.ER PO PRN (19:49)
[2022-01-16] MEDS: BUPROPION 300 MG PO SCH (19:49)
[2022-01-16] MEDS: Menthol 10%/Methyl Salicylate 30% 85 GM Tube TOP PRN (19:50)
[2022-01-17] MEDS: traMADol 50 MG Tab PO PRN (07:52)
[2022-01-17] MEDS: Acetaminophen 500 MG Tab PO SCH ×3 (07:53→19:17)
[2022-01-17] MEDS: guaiFENesin 600 MG Tab.ER PO PRN (07:53)
[2022-01-17] MEDS: Cyanocobalamin (Vitamin B12) 1,000 MCG Tab PO SCH (07:53)
[2022-01-17] MEDS: Polyethylene Glycol 3350 Powder 510 GM Bot PO SCH (07:54)
[2022-01-17] MEDS: Albuterol/Ipratropium 3.0-0.5 MG/3 ML Neb Soln NEB SCH ×2 (07:54→19:16)
[2022-01-17] MEDS: Citalopram 20 MG Tab PO SCH (07:54)
[2022-01-17] MEDS: Potassium Chloride 20 MEQ Tab.ER PO SCH ×2 (07:55→17:23)
[2022-01-17] MEDS: Furosemide 20 MG Tab PO SCH (07:55)
[2022-01-17] MEDS: Calcium Carbonate 750 MG Tab.Chew PO SCH (07:55)
[2022-01-17] MEDS: LEVOTHYROXINE 137 MCG PO SCH (19:17)
[2022-01-17] MEDS: BUPROPION 300 MG PO SCH (19:17)
[2022-01-17] MEDS: guaiFENesin/Dextromethorphan 100-10 MG/5 ML Soln 10 ML Cup PO PRN (19:22)
[2022-01-17] MEDS: Menthol 10%/Methyl Salicylate 30% 85 GM Tube TOP PRN (19:22)
[2022-01-18] MEDS: Furosemide 20 MG Tab PO SCH (08:11)
[2022-01-18] MEDS: Potassium Chloride 20 MEQ Tab.ER PO SCH ×2 (08:11→17:30)
[2022-01-18] MEDS: Citalopram 20 MG Tab PO SCH (08:11)
[2022-01-18 08:12] LABS: ANION GAP 5.2 meq/L (7-15); CHLORIDE,CL 107 mmol/L (98-107); ESTIMATED GFR > 60 mL/min; SODIUM,NA 143 mmol/L (136-145)
[2022-01-18] MEDS: guaiFENesin 600 MG Tab.ER PO SCH ×2 (08:12→20:04)
[2022-01-18] MEDS: Albuterol/Ipratropium 3.0-0.5 MG/3 ML Neb Soln NEB SCH ×2 (08:14→20:00)
[2022-01-18] MEDS: Calcium Carbonate 750 MG Tab.Chew PO SCH (08:14)
[2022-01-18] MEDS: Cyanocobalamin (Vitamin B12) 1,000 MCG Tab PO SCH (08:15)
[2022-01-18] MEDS: Polyethylene Glycol 3350 Powder 510 GM Bot PO SCH (08:15)
[2022-01-18] MEDS: Acetaminophen 500 MG Tab PO SCH ×3 (08:15→20:05)
[2022-01-18] MEDS: LEVOTHYROXINE 137 MCG PO SCH (20:03)
[2022-01-18] MEDS: BUPROPION 300 MG PO SCH (20:05)
[2022-01-19] MEDS: Potassium Chloride 20 MEQ Tab.ER PO SCH ×2 (07:36→17:16)
[2022-01-19] MEDS: Citalopram 20 MG Tab PO SCH (07:36)
[2022-01-19] MEDS: Furosemide 20 MG Tab PO SCH (07:36)
[2022-01-19] MEDS: Polyethylene Glycol 3350 Powder 510 GM Bot PO SCH (07:37)
[2022-01-19] MEDS: Albuterol/Ipratropium 3.0-0.5 MG/3 ML Neb Soln NEB SCH ×2 (07:37→20:01)
[2022-01-19] MEDS: guaiFENesin 600 MG Tab.ER PO SCH ×2 (07:37→20:04)
[2022-01-19] MEDS: Acetaminophen 500 MG Tab PO SCH ×3 (07:38→20:05)
[2022-01-19] MEDS: Calcium Carbonate 750 MG Tab.Chew PO SCH (07:38)
[2022-01-19] MEDS: traMADol 50 MG Tab PO PRN (07:39)
[2022-01-19] MEDS: Cyanocobalamin (Vitamin B12) 1,000 MCG Tab PO SCH (07:39)
[2022-01-19] MEDS: LEVOTHYROXINE 137 MCG PO SCH (20:03)
[2022-01-19] MEDS: BUPROPION 300 MG PO SCH (20:05)
[2022-01-20] MEDS: Potassium Chloride 20 MEQ Tab.ER PO SCH ×2 (07:33→17:13)
[2022-01-20] MEDS: Citalopram 20 MG Tab PO SCH (07:33)
[2022-01-20] MEDS: Furosemide 20 MG Tab PO SCH (07:34)
[2022-01-20] MEDS: Albuterol/Ipratropium 3.0-0.5 MG/3 ML Neb Soln NEB SCH ×2 (07:35→20:00)
[2022-01-20] MEDS: Polyethylene Glycol 3350 Powder 510 GM Bot PO SCH (07:35)
[2022-01-20] MEDS: Calcium Carbonate 750 MG Tab.Chew PO SCH (07:36)
[2022-01-20] MEDS: Acetaminophen 500 MG Tab PO SCH ×3 (07:37→20:07)
[2022-01-20] MEDS: guaiFENesin 600 MG Tab.ER PO SCH ×2 (07:37→20:07)
[2022-01-20] MEDS: Cyanocobalamin (Vitamin B12) 1,000 MCG Tab PO SCH (07:38)
[2022-01-20] MEDS: traMADol 50 MG Tab PO PRN (17:14)
[2022-01-20] MEDS: LEVOTHYROXINE 137 MCG PO SCH (20:06)
[2022-01-20] MEDS: BUPROPION 300 MG PO SCH (20:07)
[2022-01-21] MEDS: Albuterol/Ipratropium 3.0-0.5 MG/3 ML Neb Soln NEB SCH ×2 (07:12→19:42)
[2022-01-21] MEDS: Citalopram 20 MG Tab PO SCH (07:12)
[2022-01-21] MEDS: Potassium Chloride 20 MEQ Tab.ER PO SCH ×2 (07:12→17:16)
[2022-01-21] MEDS: Calcium Carbonate 750 MG Tab.Chew PO SCH (07:13)
[2022-01-21] MEDS: Furosemide 20 MG Tab PO SCH (07:13)
[2022-01-21] MEDS: Cyanocobalamin (Vitamin B12) 1,000 MCG Tab PO SCH (07:14)
[2022-01-21] MEDS: guaiFENesin 600 MG Tab.ER PO SCH ×2 (07:14→19:44)
[2022-01-21] MEDS: Polyethylene Glycol 3350 Powder 510 GM Bot PO SCH (07:14)
[2022-01-21] MEDS: Acetaminophen 500 MG Tab PO SCH ×3 (07:15→19:42)
[2022-01-21] MEDS: traMADol 50 MG Tab PO PRN (07:15)
[2022-01-21] MEDS: BUPROPION 300 MG PO SCH (19:42)
[2022-01-21] MEDS: LEVOTHYROXINE 137 MCG PO SCH (19:42)
[2022-01-21] MEDS: Menthol 10%/Methyl Salicylate 30% 85 GM Tube TOP PRN (19:44)
[2022-01-22] MEDS: Citalopram 20 MG Tab PO SCH (08:29)
[2022-01-22] MEDS: Potassium Chloride 20 MEQ Tab.ER PO SCH ×2 (08:29→17:35)
[2022-01-22] MEDS: Furosemide 20 MG Tab PO SCH (08:30)
[2022-01-22] MEDS: Polyethylene Glycol 3350 Powder 510 GM Bot PO SCH (08:30)
[2022-01-22] MEDS: Acetaminophen 500 MG Tab PO SCH ×3 (08:31→19:27)
[2022-01-22] MEDS: Cyanocobalamin (Vitamin B12) 1,000 MCG Tab PO SCH (08:31)
[2022-01-22] MEDS: Calcium Carbonate 750 MG Tab.Chew PO SCH (08:32)
[2022-01-22] MEDS: guaiFENesin 600 MG Tab.ER PO SCH ×2 (08:33→19:26)
[2022-01-22] MEDS: Albuterol/Ipratropium 3.0-0.5 MG/3 ML Neb Soln NEB SCH ×2 (08:33→19:21)
[2022-01-22] MEDS: LEVOTHYROXINE 137 MCG PO SCH (19:25)
[2022-01-22] MEDS: BUPROPION 300 MG PO SCH (19:26)
[2022-01-23] MEDS: Citalopram 20 MG Tab PO SCH (07:29)
[2022-01-23] MEDS: Potassium Chloride 20 MEQ Tab.ER PO SCH ×2 (07:30→17:41)
[2022-01-23] MEDS: Albuterol/Ipratropium 3.0-0.5 MG/3 ML Neb Soln NEB SCH ×2 (07:30→19:50)
[2022-01-23] MEDS: Furosemide 20 MG Tab PO SCH (07:30)
[2022-01-23] MEDS: Polyethylene Glycol 3350 Powder 510 GM Bot PO SCH (07:31)
[2022-01-23] MEDS: guaiFENesin 600 MG Tab.ER PO SCH ×2 (07:31→19:50)
[2022-01-23] MEDS: Acetaminophen 500 MG Tab PO SCH ×3 (07:32→19:51)
[2022-01-23] MEDS: Calcium Carbonate 750 MG Tab.Chew PO SCH (07:32)
[2022-01-23] MEDS: traMADol 50 MG Tab PO PRN (07:33)
[2022-01-23] MEDS: Cyanocobalamin (Vitamin B12) 1,000 MCG Tab PO SCH (07:33)
[2022-01-23] MEDS: BUPROPION 300 MG PO SCH (19:50)
[2022-01-23] MEDS: LEVOTHYROXINE 137 MCG PO SCH (19:50)
[2022-01-23] MEDS: Menthol 10%/Methyl Salicylate 30% 85 GM Tube TOP PRN (19:52)
[2022-01-24] MEDS: Furosemide 20 MG Tab PO SCH (07:16)
[2022-01-24] MEDS: Citalopram 20 MG Tab PO SCH (07:16)
[2022-01-24] MEDS: Potassium Chloride 20 MEQ Tab.ER PO SCH ×2 (07:16→17:08)
[2022-01-24] MEDS: guaiFENesin 600 MG Tab.ER PO SCH ×2 (07:17→19:43)
[2022-01-24] MEDS: Albuterol/Ipratropium 3.0-0.5 MG/3 ML Neb Soln NEB SCH ×2 (07:17→19:42)
[2022-01-24] MEDS: Calcium Carbonate 750 MG Tab.Chew PO SCH (07:17)
[2022-01-24] MEDS: Acetaminophen 500 MG Tab PO SCH ×3 (07:18→19:43)
[2022-01-24] MEDS: Polyethylene Glycol 3350 Powder 510 GM Bot PO SCH (07:19)
[2022-01-24] MEDS: Cyanocobalamin (Vitamin B12) 1,000 MCG Tab PO SCH (07:19)
[2022-01-24] MEDS: LEVOTHYROXINE 137 MCG PO SCH (19:42)
[2022-01-24] MEDS: BUPROPION 300 MG PO SCH (19:43)
[2022-01-24] MEDS: Menthol 10%/Methyl Salicylate 30% 85 GM Tube TOP PRN (19:44)
[2022-01-25] MEDS: traMADol 50 MG Tab PO PRN (08:00)
[2022-01-25] MEDS: Albuterol/Ipratropium 3.0-0.5 MG/3 ML Neb Soln NEB SCH ×2 (08:00→19:39)
[2022-01-25] MEDS: Citalopram 20 MG Tab PO SCH (08:01)
[2022-01-25] MEDS: Furosemide 20 MG Tab PO SCH (08:01)
[2022-01-25] MEDS: Potassium Chloride 20 MEQ Tab.ER PO SCH ×2 (08:01→17:15)
[2022-01-25] MEDS: guaiFENesin 600 MG Tab.ER PO SCH ×2 (08:02→19:41)
[2022-01-25] MEDS: Polyethylene Glycol 3350 Powder 510 GM Bot PO SCH (08:02)
[2022-01-25] MEDS: Acetaminophen 500 MG Tab PO SCH ×3 (08:03→19:41)
[2022-01-25] MEDS: Calcium Carbonate 750 MG Tab.Chew PO SCH (08:03)
[2022-01-25] MEDS: Cyanocobalamin (Vitamin B12) 1,000 MCG Tab PO SCH (08:04)
[2022-01-25] MEDS: LEVOTHYROXINE 137 MCG PO SCH (19:40)
[2022-01-25] MEDS: BUPROPION 300 MG PO SCH (19:40)
[2022-01-25] MEDS: Menthol 10%/Methyl Salicylate 30% 85 GM Tube TOP PRN (19:43)
[2022-01-26] MEDS: Cyanocobalamin (Vitamin B12) 1,000 MCG Tab PO SCH (08:00)
[2022-01-26] MEDS: Calcium Carbonate 750 MG Tab.Chew PO SCH (08:00)
[2022-01-26] MEDS: Albuterol/Ipratropium 3.0-0.5 MG/3 ML Neb Soln NEB SCH ×2 (08:00→19:55)
[2022-01-26] MEDS: guaiFENesin 600 MG Tab.ER PO SCH ×2 (08:01→19:58)
[2022-01-26] MEDS: traMADol 50 MG Tab PO PRN (08:01)
[2022-01-26] MEDS: Polyethylene Glycol 3350 Powder 510 GM Bot PO SCH (08:01)
[2022-01-26] MEDS: Acetaminophen 500 MG Tab PO SCH ×3 (08:02→19:59)
[2022-01-26] MEDS: Furosemide 20 MG Tab PO SCH (08:03)
[2022-01-26] MEDS: Potassium Chloride 20 MEQ Tab.ER PO SCH ×2 (08:03→17:23)
[2022-01-26] MEDS: Citalopram 20 MG Tab PO SCH (08:03)
[2022-01-26] MEDS: LEVOTHYROXINE 137 MCG PO SCH (19:58)
[2022-01-26] MEDS: BUPROPION 300 MG PO SCH (19:59)
[2022-01-27] MEDS: Polyethylene Glycol 3350 Powder 510 GM Bot PO SCH (07:18)
[2022-01-27] MEDS: traMADol 50 MG Tab PO PRN (07:19)
[2022-01-27] MEDS: Acetaminophen 500 MG Tab PO SCH ×3 (07:19→19:31)
[2022-01-27] MEDS: guaiFENesin 600 MG Tab.ER PO SCH ×2 (07:20→19:30)
[2022-01-27] MEDS: Cyanocobalamin (Vitamin B12) 1,000 MCG Tab PO SCH (07:20)
[2022-01-27] MEDS: Calcium Carbonate 750 MG Tab.Chew PO SCH (07:20)
[2022-01-27] MEDS: Albuterol/Ipratropium 3.0-0.5 MG/3 ML Neb Soln NEB SCH ×2 (07:21→19:27)
[2022-01-27] MEDS: Citalopram 20 MG Tab PO SCH (07:21)
[2022-01-27] MEDS: Furosemide 20 MG Tab PO SCH (07:22)
[2022-01-27] MEDS: Potassium Chloride 20 MEQ Tab.ER PO SCH ×2 (07:22→17:23)
[2022-01-27] MEDS: LEVOTHYROXINE 137 MCG PO SCH (19:29)
[2022-01-27] MEDS: BUPROPION 300 MG PO SCH (19:30)
[2022-01-28] MEDS: Polyethylene Glycol 3350 Powder 510 GM Bot PO SCH (07:14)
[2022-01-28] MEDS: Citalopram 20 MG Tab PO SCH (07:14)
[2022-01-28] MEDS: Furosemide 20 MG Tab PO SCH (07:15)
[2022-01-28] MEDS: Potassium Chloride 20 MEQ Tab.ER PO SCH ×2 (07:15→17:33)
[2022-01-28] MEDS: Calcium Carbonate 750 MG Tab.Chew PO SCH (07:19)
[2022-01-28] MEDS: Albuterol/Ipratropium 3.0-0.5 MG/3 ML Neb Soln NEB SCH ×2 (07:19→19:45)
[2022-01-28] MEDS: guaiFENesin 600 MG Tab.ER PO SCH ×2 (07:20→19:49)
[2022-01-28] MEDS: Acetaminophen 500 MG Tab PO SCH ×3 (07:20→19:50)
[2022-01-28] MEDS: Cyanocobalamin (Vitamin B12) 1,000 MCG Tab PO SCH (07:21)
[2022-01-28] MEDS: LEVOTHYROXINE 137 MCG PO SCH (19:48)
[2022-01-28] MEDS: BUPROPION 300 MG PO SCH (19:49)
[2022-01-29] MEDS: Albuterol/Ipratropium 3.0-0.5 MG/3 ML Neb Soln NEB SCH ×2 (07:04→19:51)
[2022-01-29] MEDS: Potassium Chloride 20 MEQ Tab.ER PO SCH ×2 (07:22→17:55)
[2022-01-29] MEDS: Furosemide 20 MG Tab PO SCH (07:22)
[2022-01-29] MEDS: Citalopram 20 MG Tab PO SCH (07:23)
[2022-01-29] MEDS: Polyethylene Glycol 3350 Powder 510 GM Bot PO SCH (07:23)
[2022-01-29] MEDS: Calcium Carbonate 750 MG Tab.Chew PO SCH (07:24)
[2022-01-29] MEDS: guaiFENesin 600 MG Tab.ER PO SCH ×2 (07:24→19:55)
[2022-01-29] MEDS: Acetaminophen 500 MG Tab PO SCH ×3 (07:25→19:56)
[2022-01-29] MEDS: Cyanocobalamin (Vitamin B12) 1,000 MCG Tab PO SCH (07:25)
[2022-01-29] MEDS: traMADol 50 MG Tab PO PRN (09:48)
[2022-01-29] MEDS: Menthol 10%/Methyl Salicylate 30% 85 GM Tube TOP PRN (09:49)
[2022-01-29] MEDS: LEVOTHYROXINE 137 MCG PO SCH (19:54)
[2022-01-29] MEDS: BUPROPION 300 MG PO SCH (19:55)
[2022-01-30] MEDS: Furosemide 20 MG Tab PO SCH (07:26)
[2022-01-30] MEDS: Potassium Chloride 20 MEQ Tab.ER PO SCH ×2 (07:26→17:34)
[2022-01-30] MEDS: Citalopram 20 MG Tab PO SCH (07:26)
[2022-01-30] MEDS: Albuterol/Ipratropium 3.0-0.5 MG/3 ML Neb Soln NEB SCH ×2 (07:27→20:03)
[2022-01-30] MEDS: guaiFENesin 600 MG Tab.ER PO SCH ×2 (07:27→20:03)
[2022-01-30] MEDS: Polyethylene Glycol 3350 Powder 510 GM Bot PO SCH (07:27)
[2022-01-30] MEDS: Acetaminophen 500 MG Tab PO SCH ×3 (07:28→20:04)
[2022-01-30] MEDS: Calcium Carbonate 750 MG Tab.Chew PO SCH (07:28)
[2022-01-30] MEDS: Cyanocobalamin (Vitamin B12) 1,000 MCG Tab PO SCH (07:29)
[2022-01-30] MEDS: Menthol 10%/Methyl Salicylate 30% 85 GM Tube TOP PRN ×2 (07:29→20:05)
[2022-01-30] MEDS: traMADol 50 MG Tab PO PRN (07:30)
[2022-01-30] MEDS: LEVOTHYROXINE 137 MCG PO SCH (20:03)
[2022-01-30] MEDS: BUPROPION 300 MG PO SCH (20:03)
[2022-01-31] MEDS: Furosemide 20 MG Tab PO SCH (08:07)
[2022-01-31] MEDS: Potassium Chloride 20 MEQ Tab.ER PO SCH ×2 (08:07→17:29)
[2022-01-31] MEDS: Albuterol/Ipratropium 3.0-0.5 MG/3 ML Neb Soln NEB SCH ×2 (08:07→19:43)
[2022-01-31] MEDS: Citalopram 20 MG Tab PO SCH (08:07)
[2022-01-31] MEDS: Polyethylene Glycol 3350 Powder 510 GM Bot PO SCH (08:08)
[2022-01-31] MEDS: Cyanocobalamin (Vitamin B12) 1,000 MCG Tab PO SCH (08:08)
[2022-01-31] MEDS: Calcium Carbonate 750 MG Tab.Chew PO SCH (08:08)
[2022-01-31] MEDS: guaiFENesin 600 MG Tab.ER PO SCH ×2 (08:08→19:45)
[2022-01-31] MEDS: Acetaminophen 500 MG Tab PO SCH ×3 (08:09→19:47)
[2022-01-31] MEDS: traMADol 50 MG Tab PO PRN (08:10)
[2022-01-31] MEDS: LEVOTHYROXINE 137 MCG PO SCH (19:45)
[2022-01-31] MEDS: BUPROPION 300 MG PO SCH (19:46)
[2022-01-31] MEDS: Menthol 10%/Methyl Salicylate 30% 85 GM Tube TOP PRN (19:49)
[2022-02-01] MEDS: Polyethylene Glycol 3350 Powder 510 GM Bot PO SCH (08:06)
[2022-02-01] MEDS: Calcium Carbonate 750 MG Tab.Chew PO SCH (08:07)
[2022-02-01] MEDS: guaiFENesin 600 MG Tab.ER PO SCH ×2 (08:07→19:54)
[2022-02-01] MEDS: Acetaminophen 500 MG Tab PO SCH ×3 (08:07→19:55)
[2022-02-01] MEDS: Potassium Chloride 20 MEQ Tab.ER PO SCH ×2 (08:08→17:28)
[2022-02-01] MEDS: Citalopram 20 MG Tab PO SCH (08:08)
[2022-02-01] MEDS: Cyanocobalamin (Vitamin B12) 1,000 MCG Tab PO SCH (08:08)
[2022-02-01] MEDS: Furosemide 20 MG Tab PO SCH (08:08)
[2022-02-01] MEDS: Albuterol/Ipratropium 3.0-0.5 MG/3 ML Neb Soln NEB SCH ×2 (08:10→19:52)
[2022-02-01] MEDS: traMADol 50 MG Tab PO PRN (08:13)
[2022-02-01] MEDS: BUPROPION 300 MG PO SCH (19:54)
[2022-02-01] MEDS: LEVOTHYROXINE 137 MCG PO SCH (19:54)
[2022-02-01] MEDS: Menthol 10%/Methyl Salicylate 30% 85 GM Tube TOP PRN (19:56)
[2022-02-02] MEDS: Albuterol/Ipratropium 3.0-0.5 MG/3 ML Neb Soln NEB SCH ×2 (07:15→19:45)
[2022-02-02] MEDS: Citalopram 20 MG Tab PO SCH (07:16)
[2022-02-02] MEDS: Furosemide 20 MG Tab PO SCH (07:16)
[2022-02-02] MEDS: Potassium Chloride 20 MEQ Tab.ER PO SCH ×2 (07:16→17:20)
[2022-02-02] MEDS: Polyethylene Glycol 3350 Powder 510 GM Bot PO SCH (07:16)
[2022-02-02] MEDS: Acetaminophen 500 MG Tab PO SCH ×3 (07:17→19:45)
[2022-02-02] MEDS: Cyanocobalamin (Vitamin B12) 1,000 MCG Tab PO SCH (07:17)
[2022-02-02] MEDS: guaiFENesin 600 MG Tab.ER PO SCH ×2 (07:17→19:45)
[2022-02-02] MEDS: Calcium Carbonate 750 MG Tab.Chew PO SCH (07:17)
[2022-02-02] MEDS: traMADol 50 MG Tab PO PRN (07:18)
[2022-02-02] MEDS: LEVOTHYROXINE 137 MCG PO SCH (19:45)
[2022-02-02] MEDS: BUPROPION 300 MG PO SCH (19:45)
[2022-02-02] MEDS: Menthol 10%/Methyl Salicylate 30% 85 GM Tube TOP PRN (19:47)
[2022-02-03] MEDS: Citalopram 20 MG Tab PO SCH (07:09)
[2022-02-03] MEDS: Albuterol/Ipratropium 3.0-0.5 MG/3 ML Neb Soln NEB SCH ×2 (07:09→19:48)
[2022-02-03] MEDS: traMADol 50 MG Tab PO PRN (07:10)
[2022-02-03] MEDS: Furosemide 20 MG Tab PO SCH (07:10)
[2022-02-03] MEDS: Potassium Chloride 20 MEQ Tab.ER PO SCH ×2 (07:10→17:17)
[2022-02-03] MEDS: Cyanocobalamin (Vitamin B12) 1,000 MCG Tab PO SCH (07:11)
[2022-02-03] MEDS: Calcium Carbonate 750 MG Tab.Chew PO SCH (07:11)
[2022-02-03] MEDS: Acetaminophen 500 MG Tab PO SCH ×3 (07:12→19:49)
[2022-02-03] MEDS: Polyethylene Glycol 3350 Powder 510 GM Bot PO SCH (07:12)
[2022-02-03] MEDS: guaiFENesin 600 MG Tab.ER PO SCH ×2 (07:12→19:48)
[2022-02-03] MEDS: LEVOTHYROXINE 137 MCG PO SCH (19:48)
[2022-02-03] MEDS: BUPROPION 300 MG PO SCH (19:48)
[2022-02-03] MEDS: Menthol 10%/Methyl Salicylate 30% 85 GM Tube TOP PRN (19:50)
[2022-02-04] MEDS: Citalopram 20 MG Tab PO SCH (07:30)
[2022-02-04] MEDS: Albuterol/Ipratropium 3.0-0.5 MG/3 ML Neb Soln NEB SCH ×2 (07:30→19:54)
[2022-02-04] MEDS: Potassium Chloride 20 MEQ Tab.ER PO SCH ×2 (07:30→17:52)
[2022-02-04] MEDS: Furosemide 20 MG Tab PO SCH (07:31)
[2022-02-04] MEDS: Polyethylene Glycol 3350 Powder 510 GM Bot PO SCH (07:32)
[2022-02-04] MEDS: Calcium Carbonate 750 MG Tab.Chew PO SCH (07:33)
[2022-02-04] MEDS: guaiFENesin 600 MG Tab.ER PO SCH ×2 (07:33→19:55)
[2022-02-04] MEDS: Acetaminophen 500 MG Tab PO SCH ×3 (07:34→19:55)
[2022-02-04] MEDS: Cyanocobalamin (Vitamin B12) 1,000 MCG Tab PO SCH (07:35)
[2022-02-04] MEDS: LEVOTHYROXINE 137 MCG PO SCH (19:54)
[2022-02-04] MEDS: BUPROPION 300 MG PO SCH (19:55)
[2022-02-04] MEDS: Menthol 10%/Methyl Salicylate 30% 85 GM Tube TOP PRN (19:56)
[2022-02-05] MEDS: traMADol 50 MG Tab PO PRN (08:20)
[2022-02-05] MEDS: Citalopram 20 MG Tab PO SCH (08:21)
[2022-02-05] MEDS: Potassium Chloride 20 MEQ Tab.ER PO SCH ×2 (08:21→17:35)
[2022-02-05] MEDS: Furosemide 20 MG Tab PO SCH (08:21)
[2022-02-05] MEDS: Albuterol/Ipratropium 3.0-0.5 MG/3 ML Neb Soln NEB PRN (08:22)
[2022-02-05] MEDS: Calcium Carbonate 750 MG Tab.Chew PO SCH (08:22)
[2022-02-05] MEDS: Polyethylene Glycol 3350 Powder 510 GM Bot PO SCH (08:22)
[2022-02-05] MEDS: Albuterol/Ipratropium 3.0-0.5 MG/3 ML Neb Soln NEB SCH ×2 (08:22→19:25)
[2022-02-05] MEDS: guaiFENesin 600 MG Tab.ER PO SCH ×2 (08:22→19:26)
[2022-02-05] MEDS: Acetaminophen 500 MG Tab PO SCH ×3 (08:23→19:27)
[2022-02-05] MEDS: Cyanocobalamin (Vitamin B12) 1,000 MCG Tab PO SCH (08:23)
[2022-02-05] MEDS: LEVOTHYROXINE 137 MCG PO SCH (19:26)
[2022-02-05] MEDS: BUPROPION 300 MG PO SCH (19:27)
[2022-02-06] MEDS: Potassium Chloride 20 MEQ Tab.ER PO SCH ×2 (08:45→17:45)
[2022-02-06] MEDS: Furosemide 20 MG Tab PO SCH (08:45)
[2022-02-06] MEDS: Citalopram 20 MG Tab PO SCH (08:45)
[2022-02-06] MEDS: Albuterol/Ipratropium 3.0-0.5 MG/3 ML Neb Soln NEB SCH ×2 (08:46→20:22)
[2022-02-06] MEDS: Polyethylene Glycol 3350 Powder 510 GM Bot PO SCH (08:46)
[2022-02-06] MEDS: guaiFENesin 600 MG Tab.ER PO SCH ×2 (08:47→20:23)
[2022-02-06] MEDS: Calcium Carbonate 750 MG Tab.Chew PO SCH (08:47)
[2022-02-06] MEDS: Acetaminophen 500 MG Tab PO SCH ×3 (08:48→20:23)
[2022-02-06] MEDS: Cyanocobalamin (Vitamin B12) 1,000 MCG Tab PO SCH (08:49)
[2022-02-06] MEDS: traMADol 50 MG Tab PO PRN (08:56)
[2022-02-06] MEDS: LEVOTHYROXINE 137 MCG PO SCH (20:22)
[2022-02-06] MEDS: BUPROPION 300 MG PO SCH (20:23)
[2022-02-06] MEDS: Menthol 10%/Methyl Salicylate 30% 85 GM Tube TOP PRN (20:24)
[2022-02-07] MEDS: Albuterol/Ipratropium 3.0-0.5 MG/3 ML Neb Soln NEB SCH ×2 (07:26→19:47)
[2022-02-07] MEDS: traMADol 50 MG Tab PO PRN (07:28)
[2022-02-07] MEDS: Calcium Carbonate 750 MG Tab.Chew PO SCH (07:29)
[2022-02-07] MEDS: Acetaminophen 500 MG Tab PO SCH ×3 (07:29→19:48)
[2022-02-07] MEDS: Polyethylene Glycol 3350 Powder 510 GM Bot PO SCH (07:30)
[2022-02-07] MEDS: guaiFENesin 600 MG Tab.ER PO SCH ×2 (07:30→19:48)
[2022-02-07] MEDS: Citalopram 20 MG Tab PO SCH (07:31)
[2022-02-07] MEDS: Furosemide 20 MG Tab PO SCH (07:31)
[2022-02-07] MEDS: Potassium Chloride 20 MEQ Tab.ER PO SCH ×2 (07:31→17:34)
[2022-02-07] MEDS: Cyanocobalamin (Vitamin B12) 1,000 MCG Tab PO SCH (07:31)
[2022-02-07] MEDS: LEVOTHYROXINE 137 MCG PO SCH (19:47)
[2022-02-07] MEDS: BUPROPION 300 MG PO SCH (19:48)
[2022-02-07] MEDS: Menthol 10%/Methyl Salicylate 30% 85 GM Tube TOP PRN (19:49)
[2022-02-08] MEDS: Furosemide 20 MG Tab PO SCH (07:59)
[2022-02-08] MEDS: Potassium Chloride 20 MEQ Tab.ER PO SCH ×2 (07:59→17:13)
[2022-02-08] MEDS: Citalopram 20 MG Tab PO SCH (07:59)
[2022-02-08] MEDS: Albuterol/Ipratropium 3.0-0.5 MG/3 ML Neb Soln NEB SCH ×2 (08:00→19:48)
[2022-02-08] MEDS: Polyethylene Glycol 3350 Powder 510 GM Bot PO SCH (08:00)
[2022-02-08] MEDS: guaiFENesin 600 MG Tab.ER PO SCH ×2 (08:01→19:49)
[2022-02-08] MEDS: Calcium Carbonate 750 MG Tab.Chew PO SCH (08:01)
[2022-02-08] MEDS: Acetaminophen 500 MG Tab PO SCH ×3 (08:02→19:51)
[2022-02-08] MEDS: traMADol 50 MG Tab PO PRN (08:02)
[2022-02-08] MEDS: Cyanocobalamin (Vitamin B12) 1,000 MCG Tab PO SCH (08:03)
[2022-02-08] MEDS: Menthol 10%/Methyl Salicylate 30% 85 GM Tube TOP PRN ×2 (12:37→20:03)
[2022-02-08] MEDS: LEVOTHYROXINE 137 MCG PO SCH (19:49)
[2022-02-08] MEDS: BUPROPION 300 MG PO SCH (19:50)
[2022-02-09] MEDS: Polyethylene Glycol 3350 Powder 510 GM Bot PO SCH (07:59)
[2022-02-09] MEDS: Potassium Chloride 20 MEQ Tab.ER PO SCH ×2 (08:00→17:07)
[2022-02-09] MEDS: Furosemide 20 MG Tab PO SCH (08:00)
[2022-02-09] MEDS: Citalopram 20 MG Tab PO SCH (08:00)
[2022-02-09] MEDS: Albuterol/Ipratropium 3.0-0.5 MG/3 ML Neb Soln NEB SCH ×2 (08:01→19:20)
[2022-02-09] MEDS: Acetaminophen 500 MG Tab PO SCH ×3 (08:01→19:23)
[2022-02-09] MEDS: guaiFENesin 600 MG Tab.ER PO SCH ×2 (08:02→19:22)
[2022-02-09] MEDS: Calcium Carbonate 750 MG Tab.Chew PO SCH (08:02)
[2022-02-09] MEDS: Cyanocobalamin (Vitamin B12) 1,000 MCG Tab PO SCH (08:02)
[2022-02-09] MEDS: traMADol 50 MG Tab PO PRN (08:03)
[2022-02-09] MEDS: Menthol 10%/Methyl Salicylate 30% 85 GM Tube TOP PRN ×2 (08:03→19:25)
[2022-02-09] MEDS: LEVOTHYROXINE 137 MCG PO SCH (19:22)
[2022-02-09] MEDS: BUPROPION 300 MG PO SCH (19:23)
[2022-02-10] MEDS: Furosemide 20 MG Tab PO SCH (07:28)
[2022-02-10] MEDS: Citalopram 20 MG Tab PO SCH (07:28)
[2022-02-10] MEDS: Albuterol/Ipratropium 3.0-0.5 MG/3 ML Neb Soln NEB SCH ×2 (07:28→20:03)
[2022-02-10] MEDS: Potassium Chloride 20 MEQ Tab.ER PO SCH ×2 (07:28→17:03)
[2022-02-10] MEDS: Polyethylene Glycol 3350 Powder 510 GM Bot PO SCH (07:29)
[2022-02-10] MEDS: Calcium Carbonate 750 MG Tab.Chew PO SCH (07:29)
[2022-02-10] MEDS: Acetaminophen 500 MG Tab PO SCH ×3 (07:30→20:06)
[2022-02-10] MEDS: guaiFENesin 600 MG Tab.ER PO SCH ×2 (07:30→20:05)
[2022-02-10] MEDS: Menthol 10%/Methyl Salicylate 30% 85 GM Tube TOP PRN ×2 (07:31→20:07)
[2022-02-10] MEDS: Cyanocobalamin (Vitamin B12) 1,000 MCG Tab PO SCH (07:31)
[2022-02-10] MEDS: LEVOTHYROXINE 137 MCG PO SCH (20:05)
[2022-02-10] MEDS: BUPROPION 300 MG PO SCH (20:06)
[2022-02-11] MEDS: traMADol 50 MG Tab PO PRN (07:22)
[2022-02-11] MEDS: Albuterol/Ipratropium 3.0-0.5 MG/3 ML Neb Soln NEB SCH ×2 (07:22→19:34)
[2022-02-11] MEDS: Acetaminophen 500 MG Tab PO SCH ×3 (07:23→19:38)
[2022-02-11] MEDS: guaiFENesin 600 MG Tab.ER PO SCH ×2 (07:24→19:37)
[2022-02-11] MEDS: Polyethylene Glycol 3350 Powder 510 GM Bot PO SCH (07:24)
[2022-02-11] MEDS: Calcium Carbonate 750 MG Tab.Chew PO SCH (07:24)
[2022-02-11] MEDS: Citalopram 20 MG Tab PO SCH (07:25)
[2022-02-11] MEDS: Cyanocobalamin (Vitamin B12) 1,000 MCG Tab PO SCH (07:26)
[2022-02-11] MEDS: Furosemide 20 MG Tab PO SCH (07:26)
[2022-02-11] MEDS: Potassium Chloride 20 MEQ Tab.ER PO SCH ×2 (07:26→17:05)
[2022-02-11] MEDS: Menthol 10%/Methyl Salicylate 30% 85 GM Tube TOP PRN (17:08)
[2022-02-11] MEDS: LEVOTHYROXINE 137 MCG PO SCH (19:37)
[2022-02-11] MEDS: BUPROPION 300 MG PO SCH (19:38)
[2022-02-12] MEDS: Potassium Chloride 20 MEQ Tab.ER PO SCH ×2 (08:18→17:16)
[2022-02-12] MEDS: Furosemide 20 MG Tab PO SCH (08:18)
[2022-02-12] MEDS: Citalopram 20 MG Tab PO SCH (08:18)
[2022-02-12] MEDS: Calcium Carbonate 750 MG Tab.Chew PO SCH (08:19)
[2022-02-12] MEDS: Polyethylene Glycol 3350 Powder 510 GM Bot PO SCH (08:19)
[2022-02-12] MEDS: Albuterol/Ipratropium 3.0-0.5 MG/3 ML Neb Soln NEB SCH ×2 (08:19→20:03)
[2022-02-12] MEDS: guaiFENesin 600 MG Tab.ER PO SCH ×2 (08:19→20:04)
[2022-02-12] MEDS: Acetaminophen 500 MG Tab PO SCH ×3 (08:20→20:04)
[2022-02-12] MEDS: Menthol 10%/Methyl Salicylate 30% 85 GM Tube TOP PRN ×2 (08:20→20:05)
[2022-02-12] MEDS: Cyanocobalamin (Vitamin B12) 1,000 MCG Tab PO SCH (08:20)
[2022-02-12] MEDS: LEVOTHYROXINE 137 MCG PO SCH (20:03)
[2022-02-12] MEDS: BUPROPION 300 MG PO SCH (20:04)
[2022-02-13] MEDS: Albuterol/Ipratropium 3.0-0.5 MG/3 ML Neb Soln NEB SCH ×2 (07:11→19:39)
[2022-02-13] MEDS: Polyethylene Glycol 3350 Powder 510 GM Bot PO SCH (07:12)
[2022-02-13] MEDS: Furosemide 20 MG Tab PO SCH (07:12)
[2022-02-13] MEDS: Citalopram 20 MG Tab PO SCH (07:12)
[2022-02-13] MEDS: Potassium Chloride 20 MEQ Tab.ER PO SCH ×2 (07:12→17:18)
[2022-02-13] MEDS: Cyanocobalamin (Vitamin B12) 1,000 MCG Tab PO SCH (07:13)
[2022-02-13] MEDS: Acetaminophen 500 MG Tab PO SCH ×3 (07:13→19:41)
[2022-02-13] MEDS: Calcium Carbonate 750 MG Tab.Chew PO SCH (07:13)
[2022-02-13] MEDS: guaiFENesin 600 MG Tab.ER PO SCH ×2 (07:13→19:40)
[2022-02-13] MEDS: traMADol 50 MG Tab PO PRN (07:14)
[2022-02-13] MEDS: BUPROPION 300 MG PO SCH (19:40)
[2022-02-13] MEDS: LEVOTHYROXINE 137 MCG PO SCH (19:40)
[2022-02-13] MEDS: Menthol 10%/Methyl Salicylate 30% 85 GM Tube TOP PRN (19:41)
[2022-02-14] MEDS: traMADol 50 MG Tab PO PRN (05:09)
[2022-02-14] MEDS: Acetaminophen 500 MG Tab PO SCH ×3 (07:39→19:36)
[2022-02-14] MEDS: Calcium Carbonate 750 MG Tab.Chew PO SCH (07:39)
[2022-02-14] MEDS: Cyanocobalamin (Vitamin B12) 1,000 MCG Tab PO SCH (07:39)
[2022-02-14] MEDS: Polyethylene Glycol 3350 Powder 510 GM Bot PO SCH (07:40)
[2022-02-14] MEDS: guaiFENesin 600 MG Tab.ER PO SCH ×2 (07:40→19:35)
[2022-02-14] MEDS: Potassium Chloride 20 MEQ Tab.ER PO SCH ×2 (07:41→17:03)
[2022-02-14] MEDS: Furosemide 20 MG Tab PO SCH (07:41)
[2022-02-14] MEDS: Citalopram 20 MG Tab PO SCH (07:42)
[2022-02-14] MEDS: Albuterol/Ipratropium 3.0-0.5 MG/3 ML Neb Soln NEB SCH ×2 (07:42→19:35)
[2022-02-14] MEDS: Menthol 10%/Methyl Salicylate 30% 85 GM Tube TOP PRN ×2 (07:53→19:36)
[2022-02-14] MEDS: BUPROPION 300 MG PO SCH (19:35)
[2022-02-14] MEDS: LEVOTHYROXINE 137 MCG PO SCH (19:35)
[2022-02-15] MEDS: Albuterol/Ipratropium 3.0-0.5 MG/3 ML Neb Soln NEB SCH ×2 (07:52→19:17)
[2022-02-15] MEDS: Calcium Carbonate 750 MG Tab.Chew PO SCH (07:54)
[2022-02-15] MEDS: traMADol 50 MG Tab PO PRN (07:55)
[2022-02-15] MEDS: guaiFENesin 600 MG Tab.ER PO SCH ×2 (07:56→19:18)
[2022-02-15] MEDS: Acetaminophen 500 MG Tab PO SCH ×3 (07:56→19:18)
[2022-02-15] MEDS: Polyethylene Glycol 3350 Powder 510 GM Bot PO SCH (07:56)
[2022-02-15] MEDS: Furosemide 20 MG Tab PO SCH (07:57)
[2022-02-15] MEDS: Cyanocobalamin (Vitamin B12) 1,000 MCG Tab PO SCH (07:57)
[2022-02-15] MEDS: Potassium Chloride 20 MEQ Tab.ER PO SCH ×2 (07:57→17:04)
[2022-02-15] MEDS: Citalopram 20 MG Tab PO SCH (07:57)
[2022-02-15] MEDS: BUPROPION 300 MG PO SCH (19:17)
[2022-02-15] MEDS: LEVOTHYROXINE 137 MCG PO SCH (19:17)
[2022-02-16] MEDS: Polyethylene Glycol 3350 Powder 510 GM Bot PO SCH (07:33)
[2022-02-16] MEDS: traMADol 50 MG Tab PO PRN (07:33)
[2022-02-16] MEDS: guaiFENesin 600 MG Tab.ER PO SCH ×2 (07:34→19:15)
[2022-02-16] MEDS: Calcium Carbonate 750 MG Tab.Chew PO SCH (07:35)
[2022-02-16] MEDS: Acetaminophen 500 MG Tab PO SCH ×3 (07:35→19:16)
[2022-02-16] MEDS: Furosemide 20 MG Tab PO SCH (07:36)
[2022-02-16] MEDS: Albuterol/Ipratropium 3.0-0.5 MG/3 ML Neb Soln NEB SCH ×2 (07:36→19:16)
[2022-02-16] MEDS: Potassium Chloride 20 MEQ Tab.ER PO SCH ×2 (07:36→17:18)
[2022-02-16] MEDS: Citalopram 20 MG Tab PO SCH (07:36)
[2022-02-16] MEDS: Cyanocobalamin (Vitamin B12) 1,000 MCG Tab PO SCH (07:37)
[2022-02-16] MEDS: BUPROPION 300 MG PO SCH (19:15)
[2022-02-16] MEDS: LEVOTHYROXINE 137 MCG PO SCH (19:16)
[2022-02-17] MEDS: Polyethylene Glycol 3350 Powder 510 GM Bot PO SCH (07:35)
[2022-02-17] MEDS: traMADol 50 MG Tab PO PRN (07:36)
[2022-02-17] MEDS: guaiFENesin 600 MG Tab.ER PO SCH ×2 (07:37→19:18)
[2022-02-17] MEDS: Cyanocobalamin (Vitamin B12) 1,000 MCG Tab PO SCH (07:37)
[2022-02-17] MEDS: Acetaminophen 500 MG Tab PO SCH ×3 (07:37→19:18)
[2022-02-17] MEDS: Potassium Chloride 20 MEQ Tab.ER PO SCH ×2 (07:38→17:08)
[2022-02-17] MEDS: Citalopram 20 MG Tab PO SCH (07:38)
[2022-02-17] MEDS: Albuterol/Ipratropium 3.0-0.5 MG/3 ML Neb Soln NEB SCH ×2 (07:38→19:17)
[2022-02-17] MEDS: Calcium Carbonate 750 MG Tab.Chew PO SCH (07:38)
[2022-02-17] MEDS: Furosemide 20 MG Tab PO SCH (07:39)
[2022-02-17] MEDS: LEVOTHYROXINE 137 MCG PO SCH (19:17)
[2022-02-17] MEDS: BUPROPION 300 MG PO SCH (19:17)
[2022-02-18] MEDS: Albuterol/Ipratropium 3.0-0.5 MG/3 ML Neb Soln NEB SCH ×2 (07:25→19:43)
[2022-02-18] MEDS: traMADol 50 MG Tab PO PRN (07:26)
[2022-02-18] MEDS: Calcium Carbonate 750 MG Tab.Chew PO SCH (07:26)
[2022-02-18] MEDS: Acetaminophen 500 MG Tab PO SCH ×3 (07:27→19:47)
[2022-02-18] MEDS: Polyethylene Glycol 3350 Powder 510 GM Bot PO SCH (07:29)
[2022-02-18] MEDS: Cyanocobalamin (Vitamin B12) 1,000 MCG Tab PO SCH (07:30)
[2022-02-18] MEDS: guaiFENesin 600 MG Tab.ER PO SCH ×2 (07:30→19:46)
[2022-02-18] MEDS: Potassium Chloride 20 MEQ Tab.ER PO SCH ×2 (07:31→17:13)
[2022-02-18] MEDS: Citalopram 20 MG Tab PO SCH (07:31)
[2022-02-18] MEDS: Furosemide 20 MG Tab PO SCH (07:31)
[2022-02-18] MEDS: LEVOTHYROXINE 137 MCG PO SCH (19:46)
[2022-02-18] MEDS: BUPROPION 300 MG PO SCH (19:47)
[2022-02-19] MEDS: Polyethylene Glycol 3350 Powder 510 GM Bot PO SCH (07:23)
[2022-02-19] MEDS: Albuterol/Ipratropium 3.0-0.5 MG/3 ML Neb Soln NEB SCH ×2 (07:24→19:06)
[2022-02-19] MEDS: Furosemide 20 MG Tab PO SCH (07:24)
[2022-02-19] MEDS: Potassium Chloride 20 MEQ Tab.ER PO SCH ×2 (07:24→17:16)
[2022-02-19] MEDS: Citalopram 20 MG Tab PO SCH (07:24)
[2022-02-19] MEDS: Calcium Carbonate 750 MG Tab.Chew PO SCH (07:25)
[2022-02-19] MEDS: guaiFENesin 600 MG Tab.ER PO SCH ×2 (07:25→19:05)
[2022-02-19] MEDS: Acetaminophen 500 MG Tab PO SCH ×3 (07:25→19:06)
[2022-02-19] MEDS: Cyanocobalamin (Vitamin B12) 1,000 MCG Tab PO SCH (07:26)
[2022-02-19] MEDS: Menthol 10%/Methyl Salicylate 30% 85 GM Tube TOP PRN (08:30)
[2022-02-19] MEDS: BUPROPION 300 MG PO SCH (19:05)
[2022-02-19] MEDS: LEVOTHYROXINE 137 MCG PO SCH (19:05)
[2022-02-20] MEDS: Albuterol/Ipratropium 3.0-0.5 MG/3 ML Neb Soln NEB SCH ×2 (07:49→19:35)
[2022-02-20] MEDS: Polyethylene Glycol 3350 Powder 510 GM Bot PO SCH (08:01)
[2022-02-20] MEDS: traMADol 50 MG Tab PO PRN (08:02)
[2022-02-20] MEDS: Calcium Carbonate 750 MG Tab.Chew PO SCH (08:04)
[2022-02-20] MEDS: Cyanocobalamin (Vitamin B12) 1,000 MCG Tab PO SCH (08:05)
[2022-02-20] MEDS: Acetaminophen 500 MG Tab PO SCH ×3 (08:05→19:36)
[2022-02-20] MEDS: Furosemide 20 MG Tab PO SCH (08:06)
[2022-02-20] MEDS: Citalopram 20 MG Tab PO SCH (08:06)
[2022-02-20] MEDS: guaiFENesin 600 MG Tab.ER PO SCH ×2 (08:06→19:35)
[2022-02-20] MEDS: Potassium Chloride 20 MEQ Tab.ER PO SCH ×2 (08:06→17:15)
[2022-02-20] MEDS: BUPROPION 300 MG PO SCH (19:35)
[2022-02-20] MEDS: LEVOTHYROXINE 137 MCG PO SCH (19:35)
[2022-02-20] MEDS: Menthol 10%/Methyl Salicylate 30% 85 GM Tube TOP PRN (19:37)
[2022-02-21] MEDS: Polyethylene Glycol 3350 Powder 510 GM Bot PO SCH (07:18)
[2022-02-21] MEDS: Citalopram 20 MG Tab PO SCH (07:19)
[2022-02-21] MEDS: Furosemide 20 MG Tab PO SCH (07:19)
[2022-02-21] MEDS: Potassium Chloride 20 MEQ Tab.ER PO SCH ×2 (07:19→17:28)
[2022-02-21] MEDS: Acetaminophen 500 MG Tab PO SCH ×3 (07:20→20:04)
[2022-02-21] MEDS: Calcium Carbonate 750 MG Tab.Chew PO SCH (07:20)
[2022-02-21] MEDS: guaiFENesin 600 MG Tab.ER PO SCH ×2 (07:20→20:03)
[2022-02-21] MEDS: Cyanocobalamin (Vitamin B12) 1,000 MCG Tab PO SCH (07:21)
[2022-02-21] MEDS: Albuterol/Ipratropium 3.0-0.5 MG/3 ML Neb Soln NEB SCH ×2 (07:22→19:56)
[2022-02-21] MEDS: Menthol 10%/Methyl Salicylate 30% 85 GM Tube TOP PRN ×2 (07:27→20:06)
[2022-02-21] MEDS: LEVOTHYROXINE 137 MCG PO SCH (20:02)
[2022-02-21] MEDS: BUPROPION 300 MG PO SCH (20:04)
[2022-02-22] MEDS: Albuterol/Ipratropium 3.0-0.5 MG/3 ML Neb Soln NEB SCH ×2 (07:09→20:13)
[2022-02-22] MEDS: Citalopram 20 MG Tab PO SCH (07:10)
[2022-02-22] MEDS: Furosemide 20 MG Tab PO SCH (07:10)
[2022-02-22] MEDS: Potassium Chloride 20 MEQ Tab.ER PO SCH ×2 (07:10→17:35)
[2022-02-22] MEDS: Polyethylene Glycol 3350 Powder 510 GM Bot PO SCH (07:11)
[2022-02-22] MEDS: Cyanocobalamin (Vitamin B12) 1,000 MCG Tab PO SCH (07:11)
[2022-02-22] MEDS: guaiFENesin 600 MG Tab.ER PO SCH ×2 (07:12→20:14)
[2022-02-22] MEDS: Acetaminophen 500 MG Tab PO SCH ×3 (07:12→20:14)
[2022-02-22] MEDS: Calcium Carbonate 750 MG Tab.Chew PO SCH (07:12)
[2022-02-22] MEDS: traMADol 50 MG Tab PO PRN (07:13)
[2022-02-22] MEDS: LEVOTHYROXINE 137 MCG PO SCH (20:13)
[2022-02-22] MEDS: BUPROPION 300 MG PO SCH (20:14)
[2022-02-22] MEDS: Menthol 10%/Methyl Salicylate 30% 85 GM Tube TOP PRN (20:15)
[2022-02-23] MEDS: Albuterol/Ipratropium 3.0-0.5 MG/3 ML Neb Soln NEB SCH ×2 (07:17→19:28)
[2022-02-23] MEDS: Citalopram 20 MG Tab PO SCH (07:18)
[2022-02-23] MEDS: Potassium Chloride 20 MEQ Tab.ER PO SCH ×2 (07:19→17:35)
[2022-02-23] MEDS: Furosemide 20 MG Tab PO SCH (07:19)
[2022-02-23] MEDS: Polyethylene Glycol 3350 Powder 510 GM Bot PO SCH (07:20)
[2022-02-23] MEDS: guaiFENesin 600 MG Tab.ER PO SCH ×2 (07:21→19:30)
[2022-02-23] MEDS: Calcium Carbonate 750 MG Tab.Chew PO SCH (07:22)
[2022-02-23] MEDS: Acetaminophen 500 MG Tab PO SCH ×3 (07:23→19:30)
[2022-02-23] MEDS: Cyanocobalamin (Vitamin B12) 1,000 MCG Tab PO SCH (07:25)
[2022-02-23] MEDS: Oseltamivir 75 MG Cap PO SCH (12:08)
[2022-02-23] MEDS: BUPROPION 300 MG PO SCH (19:29)
[2022-02-23] MEDS: LEVOTHYROXINE 137 MCG PO SCH (19:29)
[2022-02-23] MEDS: Menthol 10%/Methyl Salicylate 30% 85 GM Tube TOP PRN (19:31)
[2022-02-24] MEDS: Albuterol/Ipratropium 3.0-0.5 MG/3 ML Neb Soln NEB SCH ×2 (07:47→19:43)
[2022-02-24] MEDS: Citalopram 20 MG Tab PO SCH (07:50)
[2022-02-24] MEDS: Furosemide 20 MG Tab PO SCH (07:50)
[2022-02-24] MEDS: Potassium Chloride 20 MEQ Tab.ER PO SCH ×2 (07:50→17:29)
[2022-02-24] MEDS: guaiFENesin 600 MG Tab.ER PO SCH ×2 (07:51→19:43)
[2022-02-24] MEDS: Calcium Carbonate 750 MG Tab.Chew PO SCH (07:51)
[2022-02-24] MEDS: Polyethylene Glycol 3350 Powder 510 GM Bot PO SCH (07:51)
[2022-02-24] MEDS: Cyanocobalamin (Vitamin B12) 1,000 MCG Tab PO SCH (07:52)
[2022-02-24] MEDS: Acetaminophen 500 MG Tab PO SCH ×3 (07:52→19:44)
[2022-02-24] MEDS: Menthol 10%/Methyl Salicylate 30% 85 GM Tube TOP PRN (07:53)
[2022-02-24] MEDS: guaiFENesin/Dextromethorphan 100-10 MG/5 ML Soln 10 ML Cup PO PRN (10:22)
[2022-02-24] MEDS: Oseltamivir 75 MG Cap PO SCH (11:26)
[2022-02-24] MEDS: LEVOTHYROXINE 137 MCG PO SCH (19:43)
[2022-02-24] MEDS: BUPROPION 300 MG PO SCH (19:43)
[2022-02-25] MEDS: Citalopram 20 MG Tab PO SCH (07:36)
[2022-02-25] MEDS: Albuterol/Ipratropium 3.0-0.5 MG/3 ML Neb Soln NEB SCH ×2 (07:36→19:42)
[2022-02-25] MEDS: Furosemide 20 MG Tab PO SCH (07:36)
[2022-02-25] MEDS: Potassium Chloride 20 MEQ Tab.ER PO SCH ×2 (07:36→17:04)
[2022-02-25] MEDS: Calcium Carbonate 750 MG Tab.Chew PO SCH (07:37)
[2022-02-25] MEDS: Polyethylene Glycol 3350 Powder 510 GM Bot PO SCH (07:37)
[2022-02-25] MEDS: Acetaminophen 500 MG Tab PO SCH ×3 (07:38→19:43)
[2022-02-25] MEDS: Cyanocobalamin (Vitamin B12) 1,000 MCG Tab PO SCH (07:38)
[2022-02-25] MEDS: guaiFENesin 600 MG Tab.ER PO SCH ×2 (07:38→19:43)
[2022-02-25] MEDS: Menthol 10%/Methyl Salicylate 30% 85 GM Tube TOP PRN (07:41)
[2022-02-25] MEDS: Oseltamivir 75 MG Cap PO SCH (13:06)
[2022-02-25] MEDS: LEVOTHYROXINE 137 MCG PO SCH (19:42)
[2022-02-25] MEDS: BUPROPION 300 MG PO SCH (19:43)
[2022-02-26] MEDS: Albuterol/Ipratropium 3.0-0.5 MG/3 ML Neb Soln NEB SCH ×2 (07:40→19:15)
[2022-02-26] MEDS: traMADol 50 MG Tab PO PRN (07:42)
[2022-02-26] MEDS: Acetaminophen 500 MG Tab PO SCH ×3 (07:42→19:16)
[2022-02-26] MEDS: Cyanocobalamin (Vitamin B12) 1,000 MCG Tab PO SCH (07:43)
[2022-02-26] MEDS: Calcium Carbonate 750 MG Tab.Chew PO SCH (07:43)
[2022-02-26] MEDS: Citalopram 20 MG Tab PO SCH (07:44)
[2022-02-26] MEDS: Potassium Chloride 20 MEQ Tab.ER PO SCH ×2 (07:44→17:42)
[2022-02-26] MEDS: guaiFENesin 600 MG Tab.ER PO SCH ×2 (07:44→19:16)
[2022-02-26] MEDS: Furosemide 20 MG Tab PO SCH (07:44)
[2022-02-26] MEDS: Polyethylene Glycol 3350 Powder 510 GM Bot PO SCH (07:45)
[2022-02-26] MEDS: Oseltamivir 75 MG Cap PO SCH (11:18)
[2022-02-26] MEDS: BUPROPION 300 MG PO SCH (19:15)
[2022-02-26] MEDS: LEVOTHYROXINE 137 MCG PO SCH (19:15)
[2022-02-27] MEDS: Albuterol/Ipratropium 3.0-0.5 MG/3 ML Neb Soln NEB SCH ×2 (07:43→19:28)
[2022-02-27] MEDS: Citalopram 20 MG Tab PO SCH (07:43)
[2022-02-27] MEDS: Potassium Chloride 20 MEQ Tab.ER PO SCH ×2 (07:43→17:26)
[2022-02-27] MEDS: Furosemide 20 MG Tab PO SCH (07:44)
[2022-02-27] MEDS: Polyethylene Glycol 3350 Powder 510 GM Bot PO SCH (07:44)
[2022-02-27] MEDS: guaiFENesin 600 MG Tab.ER PO SCH ×2 (07:45→19:28)
[2022-02-27] MEDS: Acetaminophen 500 MG Tab PO SCH ×3 (07:45→19:29)
[2022-02-27] MEDS: Calcium Carbonate 750 MG Tab.Chew PO SCH (07:45)
[2022-02-27] MEDS: Cyanocobalamin (Vitamin B12) 1,000 MCG Tab PO SCH (07:46)
[2022-02-27] MEDS: Oseltamivir 75 MG Cap PO SCH (11:33)
[2022-02-27] MEDS: traMADol 50 MG Tab PO PRN (11:34)
[2022-02-27] MEDS: BUPROPION 300 MG PO SCH (19:28)
[2022-02-27] MEDS: LEVOTHYROXINE 137 MCG PO SCH (19:28)
[2022-02-27] MEDS: Menthol 10%/Methyl Salicylate 30% 85 GM Tube TOP PRN (19:30)
[2022-02-28] MEDS: Polyethylene Glycol 3350 Powder 510 GM Bot PO SCH (07:40)
[2022-02-28] MEDS: Calcium Carbonate 750 MG Tab.Chew PO SCH (07:41)
[2022-02-28] MEDS: guaiFENesin 600 MG Tab.ER PO SCH ×2 (07:41→19:27)
[2022-02-28] MEDS: traMADol 50 MG Tab PO PRN (07:41)
[2022-02-28] MEDS: Acetaminophen 500 MG Tab PO SCH ×3 (07:42→19:28)
[2022-02-28] MEDS: Cyanocobalamin (Vitamin B12) 1,000 MCG Tab PO SCH (07:42)
[2022-02-28] MEDS: Citalopram 20 MG Tab PO SCH (07:43)
[2022-02-28] MEDS: Potassium Chloride 20 MEQ Tab.ER PO SCH ×2 (07:43→17:27)
[2022-02-28] MEDS: Albuterol/Ipratropium 3.0-0.5 MG/3 ML Neb Soln NEB SCH ×2 (07:43→19:27)
[2022-02-28] MEDS: Furosemide 20 MG Tab PO SCH (07:44)
[2022-02-28] MEDS: Oseltamivir 75 MG Cap PO SCH (11:37)
[2022-02-28] MEDS: LEVOTHYROXINE 137 MCG PO SCH (19:27)
[2022-02-28] MEDS: BUPROPION 300 MG PO SCH (19:27)
[2022-02-28] MEDS: Menthol 10%/Methyl Salicylate 30% 85 GM Tube TOP PRN (19:28)
[2022-03-01] MEDS: Calcium Carbonate 750 MG Tab.Chew PO SCH (07:22)
[2022-03-01] MEDS: Albuterol/Ipratropium 3.0-0.5 MG/3 ML Neb Soln NEB SCH ×2 (07:22→19:52)
[2022-03-01] MEDS: Polyethylene Glycol 3350 Powder 510 GM Bot PO SCH (07:23)
[2022-03-01] MEDS: Citalopram 20 MG Tab PO SCH (07:23)
[2022-03-01] MEDS: Furosemide 20 MG Tab PO SCH (07:23)
[2022-03-01] MEDS: Potassium Chloride 20 MEQ Tab.ER PO SCH ×2 (07:23→17:47)
[2022-03-01] MEDS: Cyanocobalamin (Vitamin B12) 1,000 MCG Tab PO SCH (07:24)
[2022-03-01] MEDS: Acetaminophen 500 MG Tab PO SCH ×3 (07:24→19:54)
[2022-03-01] MEDS: guaiFENesin 600 MG Tab.ER PO SCH ×2 (07:24→19:53)
[2022-03-01] MEDS: Oseltamivir 75 MG Cap PO SCH (11:05)
[2022-03-01] MEDS: LEVOTHYROXINE 137 MCG PO SCH (19:53)
[2022-03-01] MEDS: BUPROPION 300 MG PO SCH (19:54)
[2022-03-01] MEDS: Menthol 10%/Methyl Salicylate 30% 85 GM Tube TOP PRN (19:55)
[2022-03-02] MEDS: Albuterol/Ipratropium 3.0-0.5 MG/3 ML Neb Soln NEB SCH ×2 (07:57→19:10)
[2022-03-02] MEDS: Citalopram 20 MG Tab PO SCH (07:58)
[2022-03-02] MEDS: Furosemide 20 MG Tab PO SCH (07:58)
[2022-03-02] MEDS: Potassium Chloride 20 MEQ Tab.ER PO SCH ×2 (07:58→17:25)
[2022-03-02] MEDS: Calcium Carbonate 750 MG Tab.Chew PO SCH (07:59)
[2022-03-02] MEDS: Acetaminophen 500 MG Tab PO SCH ×3 (07:59→19:13)
[2022-03-02] MEDS: Polyethylene Glycol 3350 Powder 510 GM Bot PO SCH (07:59)
[2022-03-02] MEDS: Cyanocobalamin (Vitamin B12) 1,000 MCG Tab PO SCH (07:59)
[2022-03-02] MEDS: guaiFENesin 600 MG Tab.ER PO SCH ×2 (07:59→19:12)
[2022-03-02] MEDS: LEVOTHYROXINE 137 MCG PO SCH (19:12)
[2022-03-02] MEDS: BUPROPION 300 MG PO SCH (19:12)
[2022-03-02] MEDS: Menthol 10%/Methyl Salicylate 30% 85 GM Tube TOP PRN (19:14)
[2022-03-03] MEDS: Citalopram 20 MG Tab PO SCH (07:50)
[2022-03-03] MEDS: Potassium Chloride 20 MEQ Tab.ER PO SCH ×2 (07:50→17:26)
[2022-03-03] MEDS: Albuterol/Ipratropium 3.0-0.5 MG/3 ML Neb Soln NEB SCH ×2 (07:51→19:28)
[2022-03-03] MEDS: Furosemide 20 MG Tab PO SCH (07:51)
[2022-03-03] MEDS: Polyethylene Glycol 3350 Powder 510 GM Bot PO SCH (07:52)
[2022-03-03] MEDS: guaiFENesin 600 MG Tab.ER PO SCH ×2 (07:52→19:30)
[2022-03-03] MEDS: Acetaminophen 500 MG Tab PO SCH ×3 (07:53→19:31)
[2022-03-03] MEDS: Calcium Carbonate 750 MG Tab.Chew PO SCH (07:53)
[2022-03-03] MEDS: Cyanocobalamin (Vitamin B12) 1,000 MCG Tab PO SCH (07:54)
[2022-03-03] MEDS: LEVOTHYROXINE 137 MCG PO SCH (19:30)
[2022-03-03] MEDS: BUPROPION 300 MG PO SCH (19:31)
[2022-03-03] MEDS: Menthol 10%/Methyl Salicylate 30% 85 GM Tube TOP PRN (19:32)
[2022-03-04] MEDS: Potassium Chloride 20 MEQ Tab.ER PO SCH ×2 (07:13→17:32)
[2022-03-04] MEDS: Albuterol/Ipratropium 3.0-0.5 MG/3 ML Neb Soln NEB SCH ×2 (07:13→19:33)
[2022-03-04] MEDS: Furosemide 20 MG Tab PO SCH (07:13)
[2022-03-04] MEDS: Citalopram 20 MG Tab PO SCH (07:13)
[2022-03-04] MEDS: Calcium Carbonate 750 MG Tab.Chew PO SCH (07:14)
[2022-03-04] MEDS: Polyethylene Glycol 3350 Powder 510 GM Bot PO SCH (07:14)
[2022-03-04] MEDS: Cyanocobalamin (Vitamin B12) 1,000 MCG Tab PO SCH (07:15)
[2022-03-04] MEDS: Acetaminophen 500 MG Tab PO SCH ×3 (07:15→19:34)
[2022-03-04] MEDS: Menthol 10%/Methyl Salicylate 30% 85 GM Tube TOP PRN ×2 (07:15→19:38)
[2022-03-04] MEDS: guaiFENesin 600 MG Tab.ER PO SCH ×2 (07:15→19:34)
[2022-03-04] MEDS: guaiFENesin/Dextromethorphan 100-10 MG/5 ML Soln 10 ML Cup PO PRN (08:58)
[2022-03-04] MEDS: LEVOTHYROXINE 137 MCG PO SCH (19:33)
[2022-03-04] MEDS: BUPROPION 300 MG PO SCH (19:33)
[2022-03-05] MEDS: Polyethylene Glycol 3350 Powder 510 GM Bot PO SCH (07:59)
[2022-03-05] MEDS: Albuterol/Ipratropium 3.0-0.5 MG/3 ML Neb Soln NEB SCH ×2 (07:59→19:29)
[2022-03-05] MEDS: Potassium Chloride 20 MEQ Tab.ER PO SCH ×2 (08:00→17:08)
[2022-03-05] MEDS: traMADol 50 MG Tab PO PRN (08:00)
[2022-03-05] MEDS: Citalopram 20 MG Tab PO SCH (08:00)
[2022-03-05] MEDS: guaiFENesin 600 MG Tab.ER PO SCH ×2 (08:01→19:29)
[2022-03-05] MEDS: Calcium Carbonate 750 MG Tab.Chew PO SCH (08:01)
[2022-03-05] MEDS: Furosemide 20 MG Tab PO SCH (08:01)
[2022-03-05] MEDS: Acetaminophen 500 MG Tab PO SCH ×3 (08:02→19:30)
[2022-03-05] MEDS: Cyanocobalamin (Vitamin B12) 1,000 MCG Tab PO SCH (08:03)
[2022-03-05] MEDS: LEVOTHYROXINE 137 MCG PO SCH (19:29)
[2022-03-05] MEDS: BUPROPION 300 MG PO SCH (19:29)
[2022-03-05] MEDS: Menthol 10%/Methyl Salicylate 30% 85 GM Tube TOP PRN (19:31)
[2022-03-06] MEDS: Albuterol/Ipratropium 3.0-0.5 MG/3 ML Neb Soln NEB SCH ×2 (07:49→19:30)
[2022-03-06] MEDS: Potassium Chloride 20 MEQ Tab.ER PO SCH ×2 (07:49→17:44)
[2022-03-06] MEDS: Citalopram 20 MG Tab PO SCH (07:49)
[2022-03-06] MEDS: Furosemide 20 MG Tab PO SCH (07:49)
[2022-03-06] MEDS: Polyethylene Glycol 3350 Powder 510 GM Bot PO SCH (07:49)
[2022-03-06] MEDS: Cyanocobalamin (Vitamin B12) 1,000 MCG Tab PO SCH (07:50)
[2022-03-06] MEDS: Calcium Carbonate 750 MG Tab.Chew PO SCH (07:50)
[2022-03-06] MEDS: guaiFENesin 600 MG Tab.ER PO SCH ×2 (07:50→19:31)
[2022-03-06] MEDS: Acetaminophen 500 MG Tab PO SCH ×3 (07:50→19:32)
[2022-03-06] MEDS: LEVOTHYROXINE 137 MCG PO SCH (19:31)
[2022-03-06] MEDS: BUPROPION 300 MG PO SCH (19:31)
[2022-03-06] MEDS: Menthol 10%/Methyl Salicylate 30% 85 GM Tube TOP PRN (19:33)
[2022-03-07] MEDS: Polyethylene Glycol 3350 Powder 510 GM Bot PO SCH (08:16)
[2022-03-07] MEDS: Calcium Carbonate 750 MG Tab.Chew PO SCH (08:17)
[2022-03-07] MEDS: Potassium Chloride 20 MEQ Tab.ER PO SCH ×2 (08:17→17:19)
[2022-03-07] MEDS: guaiFENesin 600 MG Tab.ER PO SCH ×2 (08:17→19:47)
[2022-03-07] MEDS: Citalopram 20 MG Tab PO SCH (08:17)
[2022-03-07] MEDS: Furosemide 20 MG Tab PO SCH (08:17)
[2022-03-07] MEDS: Acetaminophen 500 MG Tab PO SCH ×3 (08:18→19:48)
[2022-03-07] MEDS: Cyanocobalamin (Vitamin B12) 1,000 MCG Tab PO SCH (08:18)
[2022-03-07] MEDS: Albuterol/Ipratropium 3.0-0.5 MG/3 ML Neb Soln NEB SCH ×2 (08:19→19:47)
[2022-03-07] MEDS: traMADol 50 MG Tab PO PRN (09:30)
[2022-03-07] MEDS: Menthol 10%/Methyl Salicylate 30% 85 GM Tube TOP PRN (09:31)
[2022-03-07] MEDS: LEVOTHYROXINE 137 MCG PO SCH (19:47)
[2022-03-07] MEDS: BUPROPION 300 MG PO SCH (19:47)
[2022-03-08] MEDS: Acetaminophen 500 MG Tab PO SCH ×3 (07:25→19:18)
[2022-03-08] MEDS: Polyethylene Glycol 3350 Powder 510 GM Bot PO SCH (07:25)
[2022-03-08] MEDS: Calcium Carbonate 750 MG Tab.Chew PO SCH (07:26)
[2022-03-08] MEDS: Albuterol/Ipratropium 3.0-0.5 MG/3 ML Neb Soln NEB SCH ×2 (07:26→19:17)
[2022-03-08] MEDS: Citalopram 20 MG Tab PO SCH (07:31)
[2022-03-08] MEDS: Furosemide 20 MG Tab PO SCH (07:31)
[2022-03-08] MEDS: Potassium Chloride 20 MEQ Tab.ER PO SCH ×2 (07:31→17:11)
[2022-03-08] MEDS: guaiFENesin 600 MG Tab.ER PO SCH ×2 (07:32→19:19)
[2022-03-08] MEDS: Cyanocobalamin (Vitamin B12) 1,000 MCG Tab PO SCH (07:32)
[2022-03-08] MEDS: LEVOTHYROXINE 137 MCG PO SCH (19:18)
[2022-03-08] MEDS: BUPROPION 300 MG PO SCH (19:18)
[2022-03-09] MEDS: Polyethylene Glycol 3350 Powder 510 GM Bot PO SCH (07:21)
[2022-03-09] MEDS: Cyanocobalamin (Vitamin B12) 1,000 MCG Tab PO SCH (07:22)
[2022-03-09] MEDS: Calcium Carbonate 750 MG Tab.Chew PO SCH (07:22)
[2022-03-09] MEDS: Acetaminophen 500 MG Tab PO SCH ×3 (07:22→19:46)
[2022-03-09] MEDS: Citalopram 20 MG Tab PO SCH (07:23)
[2022-03-09] MEDS: guaiFENesin 600 MG Tab.ER PO SCH ×2 (07:23→19:45)
[2022-03-09] MEDS: Albuterol/Ipratropium 3.0-0.5 MG/3 ML Neb Soln NEB SCH ×2 (07:23→19:44)
[2022-03-09] MEDS: Potassium Chloride 20 MEQ Tab.ER PO SCH ×2 (07:23→17:35)
[2022-03-09] MEDS: Furosemide 20 MG Tab PO SCH (07:24)
[2022-03-09] MEDS: traMADol 50 MG Tab PO PRN (08:38)
[2022-03-09] MEDS: BUPROPION 300 MG PO SCH (19:45)
[2022-03-09] MEDS: LEVOTHYROXINE 137 MCG PO SCH (19:45)
[2022-03-09] MEDS: Menthol 10%/Methyl Salicylate 30% 85 GM Tube TOP PRN (19:47)
[2022-03-10] MEDS: Albuterol/Ipratropium 3.0-0.5 MG/3 ML Neb Soln NEB SCH ×2 (07:25→19:28)
[2022-03-10] MEDS: Potassium Chloride 20 MEQ Tab.ER PO SCH ×2 (07:26→17:50)
[2022-03-10] MEDS: Furosemide 20 MG Tab PO SCH (07:26)
[2022-03-10] MEDS: Citalopram 20 MG Tab PO SCH (07:26)
[2022-03-10] MEDS: Polyethylene Glycol 3350 Powder 510 GM Bot PO SCH (07:27)
[2022-03-10] MEDS: guaiFENesin 600 MG Tab.ER PO SCH ×2 (07:27→19:28)
[2022-03-10] MEDS: Cyanocobalamin (Vitamin B12) 1,000 MCG Tab PO SCH (07:27)
[2022-03-10] MEDS: Acetaminophen 500 MG Tab PO SCH ×3 (07:28→19:29)
[2022-03-10] MEDS: Calcium Carbonate 750 MG Tab.Chew PO SCH (07:29)
[2022-03-10] MEDS: BUPROPION 300 MG PO SCH (19:28)
[2022-03-10] MEDS: LEVOTHYROXINE 137 MCG PO SCH (19:28)
[2022-03-10] MEDS: Menthol 10%/Methyl Salicylate 30% 85 GM Tube TOP PRN (19:30)
[2022-03-11] MEDS: guaiFENesin/Dextromethorphan 100-10 MG/5 ML Soln 10 ML Cup PO PRN (04:30)
[2022-03-11] MEDS: Albuterol/Ipratropium 3.0-0.5 MG/3 ML Neb Soln NEB SCH ×2 (07:43→20:19)
[2022-03-11] MEDS: Citalopram 20 MG Tab PO SCH (07:44)
[2022-03-11] MEDS: Acetaminophen 500 MG Tab PO SCH ×3 (07:44→20:21)
[2022-03-11] MEDS: Potassium Chloride 20 MEQ Tab.ER PO SCH ×2 (07:44→17:12)
[2022-03-11] MEDS: Calcium Carbonate 750 MG Tab.Chew PO SCH (07:45)
[2022-03-11] MEDS: guaiFENesin 600 MG Tab.ER PO SCH ×2 (07:45→20:21)
[2022-03-11] MEDS: Furosemide 20 MG Tab PO SCH (07:45)
[2022-03-11] MEDS: Cyanocobalamin (Vitamin B12) 1,000 MCG Tab PO SCH (07:46)
[2022-03-11] MEDS: Polyethylene Glycol 3350 Powder 510 GM Bot PO SCH (08:22)
[2022-03-11] MEDS: LEVOTHYROXINE 137 MCG PO SCH (20:20)
[2022-03-11] MEDS: BUPROPION 300 MG PO SCH (20:21)
[2022-03-11] MEDS: Menthol 10%/Methyl Salicylate 30% 85 GM Tube TOP PRN (20:22)
[2022-03-12] MEDS: Albuterol/Ipratropium 3.0-0.5 MG/3 ML Neb Soln NEB SCH ×2 (07:54→19:50)
[2022-03-12] MEDS: Calcium Carbonate 750 MG Tab.Chew PO SCH (07:54)
[2022-03-12] MEDS: Cyanocobalamin (Vitamin B12) 1,000 MCG Tab PO SCH (07:55)
[2022-03-12] MEDS: guaiFENesin 600 MG Tab.ER PO SCH ×2 (07:55→19:52)
[2022-03-12] MEDS: Polyethylene Glycol 3350 Powder 510 GM Bot PO SCH (07:55)
[2022-03-12] MEDS: Potassium Chloride 20 MEQ Tab.ER PO SCH ×2 (07:56→17:13)
[2022-03-12] MEDS: Citalopram 20 MG Tab PO SCH (07:56)
[2022-03-12] MEDS: Furosemide 20 MG Tab PO SCH (07:57)
[2022-03-12] MEDS: Acetaminophen 500 MG Tab PO SCH ×3 (07:57→19:52)
[2022-03-12] MEDS: LEVOTHYROXINE 137 MCG PO SCH (19:51)
[2022-03-12] MEDS: BUPROPION 300 MG PO SCH (19:52)
[2022-03-13] MEDS: Albuterol/Ipratropium 3.0-0.5 MG/3 ML Neb Soln NEB SCH ×2 (08:07→19:22)
[2022-03-13] MEDS: Citalopram 20 MG Tab PO SCH (08:07)
[2022-03-13] MEDS: Potassium Chloride 20 MEQ Tab.ER PO SCH ×2 (08:07→18:07)
[2022-03-13] MEDS: Polyethylene Glycol 3350 Powder 510 GM Bot PO SCH (08:08)
[2022-03-13] MEDS: Furosemide 20 MG Tab PO SCH (08:08)
[2022-03-13] MEDS: guaiFENesin 600 MG Tab.ER PO SCH ×2 (08:09→19:23)
[2022-03-13] MEDS: Acetaminophen 500 MG Tab PO SCH ×3 (08:10→19:22)
[2022-03-13] MEDS: Calcium Carbonate 750 MG Tab.Chew PO SCH (08:10)
[2022-03-13] MEDS: Cyanocobalamin (Vitamin B12) 1,000 MCG Tab PO SCH (08:12)
[2022-03-13] MEDS: traMADol 50 MG Tab PO PRN (11:31)
[2022-03-13] MEDS: LEVOTHYROXINE 137 MCG PO SCH (19:22)
[2022-03-13] MEDS: BUPROPION 300 MG PO SCH (19:22)
[2022-03-14] MEDS: traMADol 50 MG Tab PO PRN (07:09)
[2022-03-14] MEDS: Albuterol/Ipratropium 3.0-0.5 MG/3 ML Neb Soln NEB SCH ×2 (07:09→19:14)
[2022-03-14] MEDS: Polyethylene Glycol 3350 Powder 510 GM Bot PO SCH (07:10)
[2022-03-14] MEDS: Acetaminophen 500 MG Tab PO SCH ×3 (07:10→19:13)
[2022-03-14] MEDS: Calcium Carbonate 750 MG Tab.Chew PO SCH (07:10)
[2022-03-14] MEDS: Potassium Chloride 20 MEQ Tab.ER PO SCH ×2 (07:11→17:08)
[2022-03-14] MEDS: Furosemide 20 MG Tab PO SCH (07:11)
[2022-03-14] MEDS: Citalopram 20 MG Tab PO SCH (07:11)
[2022-03-14] MEDS: guaiFENesin 600 MG Tab.ER PO SCH ×2 (07:12→19:13)
[2022-03-14] MEDS: Cyanocobalamin (Vitamin B12) 1,000 MCG Tab PO SCH (07:12)
[2022-03-14] MEDS: LEVOTHYROXINE 137 MCG PO SCH (19:13)
[2022-03-14] MEDS: BUPROPION 300 MG PO SCH (19:13)
[2022-03-15] MEDS: Calcium Carbonate 750 MG Tab.Chew PO SCH (07:23)
[2022-03-15] MEDS: Potassium Chloride 20 MEQ Tab.ER PO SCH ×2 (07:24→17:16)
[2022-03-15] MEDS: Polyethylene Glycol 3350 Powder 510 GM Bot PO SCH (07:24)
[2022-03-15] MEDS: Citalopram 20 MG Tab PO SCH (07:24)
[2022-03-15] MEDS: Furosemide 20 MG Tab PO SCH (07:24)
[2022-03-15] MEDS: Albuterol/Ipratropium 3.0-0.5 MG/3 ML Neb Soln NEB SCH ×2 (07:25→19:11)
[2022-03-15] MEDS: Cyanocobalamin (Vitamin B12) 1,000 MCG Tab PO SCH (07:25)
[2022-03-15] MEDS: Acetaminophen 500 MG Tab PO SCH ×3 (07:25→19:12)
[2022-03-15] MEDS: traMADol 50 MG Tab PO PRN (07:26)
[2022-03-15] MEDS: guaiFENesin 600 MG Tab.ER PO SCH ×2 (07:26→19:12)
[2022-03-15] MEDS: LEVOTHYROXINE 137 MCG PO SCH (19:12)
[2022-03-15] MEDS: BUPROPION 300 MG PO SCH (19:12)
[2022-03-15] MEDS: Menthol 10%/Methyl Salicylate 30% 85 GM Tube TOP PRN (19:13)
[2022-03-16] MEDS: Citalopram 20 MG Tab PO SCH (08:48)
[2022-03-16] MEDS: Furosemide 20 MG Tab PO SCH (08:48)
[2022-03-16] MEDS: Potassium Chloride 20 MEQ Tab.ER PO SCH ×2 (08:48→17:26)
[2022-03-16] MEDS: Albuterol/Ipratropium 3.0-0.5 MG/3 ML Neb Soln NEB SCH ×2 (08:48→19:20)
[2022-03-16] MEDS: Cyanocobalamin (Vitamin B12) 1,000 MCG Tab PO SCH (08:49)
[2022-03-16] MEDS: Acetaminophen 500 MG Tab PO SCH ×3 (08:49→19:21)
[2022-03-16] MEDS: Polyethylene Glycol 3350 Powder 510 GM Bot PO SCH (08:49)
[2022-03-16] MEDS: Calcium Carbonate 750 MG Tab.Chew PO SCH (08:49)
[2022-03-16] MEDS: guaiFENesin 600 MG Tab.ER PO SCH ×2 (08:49→19:21)
[2022-03-16] MEDS: BUPROPION 300 MG PO SCH (19:21)
[2022-03-16] MEDS: LEVOTHYROXINE 137 MCG PO SCH (19:21)
[2022-03-16] MEDS: Menthol 10%/Methyl Salicylate 30% 85 GM Tube TOP PRN (19:22)
[2022-03-17] MEDS: Albuterol/Ipratropium 3.0-0.5 MG/3 ML Neb Soln NEB SCH ×2 (07:15→19:37)
[2022-03-17] MEDS: Potassium Chloride 20 MEQ Tab.ER PO SCH ×2 (07:15→17:21)
[2022-03-17] MEDS: Citalopram 20 MG Tab PO SCH (07:15)
[2022-03-17] MEDS: Cyanocobalamin (Vitamin B12) 1,000 MCG Tab PO SCH (07:16)
[2022-03-17] MEDS: Furosemide 20 MG Tab PO SCH (07:16)
[2022-03-17] MEDS: Calcium Carbonate 750 MG Tab.Chew PO SCH (07:16)
[2022-03-17] MEDS: Polyethylene Glycol 3350 Powder 510 GM Bot PO SCH (07:16)
[2022-03-17] MEDS: guaiFENesin 600 MG Tab.ER PO SCH ×2 (07:17→19:38)
[2022-03-17] MEDS: Acetaminophen 500 MG Tab PO SCH ×3 (07:17→19:38)
[2022-03-17] MEDS: traMADol 50 MG Tab PO PRN (07:19)
[2022-03-17] MEDS: LEVOTHYROXINE 137 MCG PO SCH (19:37)
[2022-03-17] MEDS: BUPROPION 300 MG PO SCH (19:37)
[2022-03-17] MEDS: Menthol 10%/Methyl Salicylate 30% 85 GM Tube TOP PRN (19:40)
[2022-03-18] MEDS: Menthol 10%/Methyl Salicylate 30% 85 GM Tube TOP PRN ×2 (07:31→19:25)
[2022-03-18] MEDS: Citalopram 20 MG Tab PO SCH (07:31)
[2022-03-18] MEDS: Furosemide 20 MG Tab PO SCH (07:31)
[2022-03-18] MEDS: Albuterol/Ipratropium 3.0-0.5 MG/3 ML Neb Soln NEB SCH ×2 (07:31→19:22)
[2022-03-18] MEDS: Potassium Chloride 20 MEQ Tab.ER PO SCH ×2 (07:31→17:01)
[2022-03-18] MEDS: Polyethylene Glycol 3350 Powder 510 GM Bot PO SCH (07:32)
[2022-03-18] MEDS: guaiFENesin 600 MG Tab.ER PO SCH ×2 (07:33→19:23)
[2022-03-18] MEDS: Calcium Carbonate 750 MG Tab.Chew PO SCH (07:33)
[2022-03-18] MEDS: Cyanocobalamin (Vitamin B12) 1,000 MCG Tab PO SCH (07:34)
[2022-03-18] MEDS: Acetaminophen 500 MG Tab PO SCH ×3 (07:34→19:23)
[2022-03-18] MEDS: traMADol 50 MG Tab PO PRN (07:52)
[2022-03-18] MEDS: BUPROPION 300 MG PO SCH (19:22)
[2022-03-18] MEDS: LEVOTHYROXINE 137 MCG PO SCH (19:22)
[2022-03-19] MEDS: Polyethylene Glycol 3350 Powder 510 GM Bot PO SCH (08:01)
[2022-03-19] MEDS: traMADol 50 MG Tab PO PRN (08:01)
[2022-03-19] MEDS: Acetaminophen 500 MG Tab PO SCH ×3 (08:02→19:26)
[2022-03-19] MEDS: guaiFENesin 600 MG Tab.ER PO SCH ×2 (08:03→19:25)
[2022-03-19] MEDS: Potassium Chloride 20 MEQ Tab.ER PO SCH ×2 (08:04→17:09)
[2022-03-19] MEDS: Albuterol/Ipratropium 3.0-0.5 MG/3 ML Neb Soln NEB SCH ×2 (08:04→19:24)
[2022-03-19] MEDS: Calcium Carbonate 750 MG Tab.Chew PO SCH (08:04)
[2022-03-19] MEDS: Citalopram 20 MG Tab PO SCH (08:04)
[2022-03-19] MEDS: Cyanocobalamin (Vitamin B12) 1,000 MCG Tab PO SCH (08:04)
[2022-03-19] MEDS: Furosemide 20 MG Tab PO SCH (08:05)
[2022-03-19] MEDS: BUPROPION 300 MG PO SCH (19:25)
[2022-03-19] MEDS: LEVOTHYROXINE 137 MCG PO SCH (19:25)
[2022-03-19] MEDS: Menthol 10%/Methyl Salicylate 30% 85 GM Tube TOP PRN (19:27)
[2022-03-20] MEDS: Potassium Chloride 20 MEQ Tab.ER PO SCH ×2 (07:22→17:39)
[2022-03-20] MEDS: Citalopram 20 MG Tab PO SCH (07:22)
[2022-03-20] MEDS: Furosemide 20 MG Tab PO SCH (07:22)
[2022-03-20] MEDS: Albuterol/Ipratropium 3.0-0.5 MG/3 ML Neb Soln NEB SCH ×2 (07:24→19:25)
[2022-03-20] MEDS: Polyethylene Glycol 3350 Powder 510 GM Bot PO SCH (07:25)
[2022-03-20] MEDS: guaiFENesin 600 MG Tab.ER PO SCH ×2 (07:26→19:24)
[2022-03-20] MEDS: Acetaminophen 500 MG Tab PO SCH ×3 (07:27→19:24)
[2022-03-20] MEDS: Calcium Carbonate 750 MG Tab.Chew PO SCH (07:27)
[2022-03-20] MEDS: Cyanocobalamin (Vitamin B12) 1,000 MCG Tab PO SCH (07:28)
[2022-03-20] MEDS: traMADol 50 MG Tab PO PRN (08:33)
[2022-03-20] MEDS: BUPROPION 300 MG PO SCH (19:24)
[2022-03-20] MEDS: LEVOTHYROXINE 137 MCG PO SCH (19:24)
[2022-03-21] MEDS: Albuterol/Ipratropium 3.0-0.5 MG/3 ML Neb Soln NEB SCH ×2 (07:42→19:10)
[2022-03-21] MEDS: traMADol 50 MG Tab PO PRN (07:43)
[2022-03-21] MEDS: Acetaminophen 500 MG Tab PO SCH ×3 (07:44→19:09)
[2022-03-21] MEDS: Polyethylene Glycol 3350 Powder 510 GM Bot PO SCH (07:45)
[2022-03-21] MEDS: Calcium Carbonate 750 MG Tab.Chew PO SCH (07:45)
[2022-03-21] MEDS: guaiFENesin 600 MG Tab.ER PO SCH ×2 (07:45→19:09)
[2022-03-21] MEDS: Furosemide 20 MG Tab PO SCH (07:46)
[2022-03-21] MEDS: Citalopram 20 MG Tab PO SCH (07:46)
[2022-03-21] MEDS: Potassium Chloride 20 MEQ Tab.ER PO SCH ×2 (07:46→17:10)
[2022-03-21] MEDS: Cyanocobalamin (Vitamin B12) 1,000 MCG Tab PO SCH (07:47)
[2022-03-21] MEDS: LEVOTHYROXINE 137 MCG PO SCH (19:08)
[2022-03-21] MEDS: BUPROPION 300 MG PO SCH (19:09)
[2022-03-22] MEDS: Furosemide 20 MG Tab PO SCH (08:10)
[2022-03-22] MEDS: Citalopram 20 MG Tab PO SCH (08:10)
[2022-03-22] MEDS: Potassium Chloride 20 MEQ Tab.ER PO SCH ×2 (08:10→17:37)
[2022-03-22] MEDS: Albuterol/Ipratropium 3.0-0.5 MG/3 ML Neb Soln NEB SCH ×2 (08:11→19:30)
[2022-03-22] MEDS: Polyethylene Glycol 3350 Powder 510 GM Bot PO SCH (08:11)
[2022-03-22] MEDS: guaiFENesin 600 MG Tab.ER PO SCH ×2 (08:12→19:33)
[2022-03-22] MEDS: Calcium Carbonate 750 MG Tab.Chew PO SCH (08:12)
[2022-03-22] MEDS: Acetaminophen 500 MG Tab PO SCH ×3 (08:13→19:33)
[2022-03-22] MEDS: Cyanocobalamin (Vitamin B12) 1,000 MCG Tab PO SCH (08:14)
[2022-03-22] MEDS: traMADol 50 MG Tab PO PRN ×2 (08:15→17:38)
[2022-03-22] MEDS: Menthol 10%/Methyl Salicylate 30% 85 GM Tube TOP PRN (17:33)
[2022-03-22] MEDS: LEVOTHYROXINE 137 MCG PO SCH (19:32)
[2022-03-22] MEDS: BUPROPION 300 MG PO SCH (19:33)
[2022-03-23] MEDS: Acetaminophen 500 MG Tab PO SCH ×3 (07:59→20:05)
[2022-03-23] MEDS: traMADol 50 MG Tab PO PRN (07:59)
[2022-03-23] MEDS: Polyethylene Glycol 3350 Powder 510 GM Bot PO SCH (08:00)
[2022-03-23] MEDS: guaiFENesin 600 MG Tab.ER PO SCH ×2 (08:00→20:05)
[2022-03-23] MEDS: Furosemide 20 MG Tab PO SCH (08:01)
[2022-03-23] MEDS: Calcium Carbonate 750 MG Tab.Chew PO SCH (08:01)
[2022-03-23] MEDS: Citalopram 20 MG Tab PO SCH (08:01)
[2022-03-23] MEDS: Albuterol/Ipratropium 3.0-0.5 MG/3 ML Neb Soln NEB SCH ×2 (08:01→20:02)
[2022-03-23] MEDS: Potassium Chloride 20 MEQ Tab.ER PO SCH ×2 (08:01→17:33)
[2022-03-23] MEDS: Cyanocobalamin (Vitamin B12) 1,000 MCG Tab PO SCH (08:02)
[2022-03-23] MEDS: LEVOTHYROXINE 137 MCG PO SCH (20:04)
[2022-03-23] MEDS: BUPROPION 300 MG PO SCH (20:05)
[2022-03-23] MEDS: Menthol 10%/Methyl Salicylate 30% 85 GM Tube TOP PRN (20:07)
[2022-03-24] MEDS: Albuterol/Ipratropium 3.0-0.5 MG/3 ML Neb Soln NEB SCH ×2 (07:41→19:36)
[2022-03-24] MEDS: Calcium Carbonate 750 MG Tab.Chew PO SCH (07:43)
[2022-03-24] MEDS: Polyethylene Glycol 3350 Powder 510 GM Bot PO SCH (07:44)
[2022-03-24] MEDS: Cyanocobalamin (Vitamin B12) 1,000 MCG Tab PO SCH (07:44)
[2022-03-24] MEDS: traMADol 50 MG Tab PO PRN (07:45)
[2022-03-24] MEDS: Acetaminophen 500 MG Tab PO SCH ×3 (07:46→19:39)
[2022-03-24] MEDS: guaiFENesin 600 MG Tab.ER PO SCH ×2 (07:47→19:38)
[2022-03-24] MEDS: Citalopram 20 MG Tab PO SCH (07:51)
[2022-03-24] MEDS: Potassium Chloride 20 MEQ Tab.ER PO SCH ×2 (07:51→17:20)
[2022-03-24] MEDS: Furosemide 20 MG Tab PO SCH (07:52)
[2022-03-24] MEDS: LEVOTHYROXINE 137 MCG PO SCH (19:38)
[2022-03-24] MEDS: BUPROPION 300 MG PO SCH (19:38)
[2022-03-24] MEDS: Menthol 10%/Methyl Salicylate 30% 85 GM Tube TOP PRN (19:40)
[2022-03-25] MEDS: guaiFENesin 600 MG Tab.ER PO SCH ×2 (08:38→19:48)
[2022-03-25] MEDS: guaiFENesin/Dextromethorphan 100-10 MG/5 ML Soln 10 ML Cup PO PRN (08:38)
[2022-03-25] MEDS: Polyethylene Glycol 3350 Powder 510 GM Bot PO SCH (08:38)
[2022-03-25] MEDS: Furosemide 20 MG Tab PO SCH (08:38)
[2022-03-25] MEDS: Citalopram 20 MG Tab PO SCH (08:38)
[2022-03-25] MEDS: Potassium Chloride 20 MEQ Tab.ER PO SCH ×2 (08:38→17:31)
[2022-03-25] MEDS: Calcium Carbonate 750 MG Tab.Chew PO SCH (08:39)
[2022-03-25] MEDS: Albuterol/Ipratropium 3.0-0.5 MG/3 ML Neb Soln NEB SCH ×2 (08:39→19:46)
[2022-03-25] MEDS: Cyanocobalamin (Vitamin B12) 1,000 MCG Tab PO SCH (08:40)
[2022-03-25] MEDS: Acetaminophen 500 MG Tab PO SCH ×3 (08:40→19:49)
[2022-03-25] MEDS: Menthol 10%/Methyl Salicylate 30% 85 GM Tube TOP PRN ×2 (10:08→20:03)
[2022-03-25] MEDS: BUPROPION 300 MG PO SCH (19:48)
[2022-03-25] MEDS: LEVOTHYROXINE 137 MCG PO SCH (19:48)
[2022-03-26] MEDS: Furosemide 20 MG Tab PO SCH (07:43)
[2022-03-26] MEDS: Potassium Chloride 20 MEQ Tab.ER PO SCH ×2 (07:43→17:39)
[2022-03-26] MEDS: Citalopram 20 MG Tab PO SCH (07:43)
[2022-03-26] MEDS: Polyethylene Glycol 3350 Powder 510 GM Bot PO SCH (07:44)
[2022-03-26] MEDS: guaiFENesin 600 MG Tab.ER PO SCH ×2 (07:44→19:43)
[2022-03-26] MEDS: Albuterol/Ipratropium 3.0-0.5 MG/3 ML Neb Soln NEB SCH ×2 (07:44→19:41)
[2022-03-26] MEDS: Calcium Carbonate 750 MG Tab.Chew PO SCH (07:45)
[2022-03-26] MEDS: Acetaminophen 500 MG Tab PO SCH ×3 (07:45→19:43)
[2022-03-26] MEDS: Cyanocobalamin (Vitamin B12) 1,000 MCG Tab PO SCH (07:45)
[2022-03-26] MEDS: Menthol 10%/Methyl Salicylate 30% 85 GM Tube TOP PRN (12:02)
[2022-03-26] MEDS: LEVOTHYROXINE 137 MCG PO SCH (19:41)
[2022-03-26] MEDS: BUPROPION 300 MG PO SCH (19:43)
[2022-03-27] MEDS: Albuterol/Ipratropium 3.0-0.5 MG/3 ML Neb Soln NEB SCH ×2 (07:33→19:37)
[2022-03-27] MEDS: Polyethylene Glycol 3350 Powder 510 GM Bot PO SCH (07:33)
[2022-03-27] MEDS: Furosemide 20 MG Tab PO SCH (07:34)
[2022-03-27] MEDS: Citalopram 20 MG Tab PO SCH (07:34)
[2022-03-27] MEDS: Potassium Chloride 20 MEQ Tab.ER PO SCH ×2 (07:34→17:49)
[2022-03-27] MEDS: guaiFENesin 600 MG Tab.ER PO SCH ×2 (07:34→19:38)
[2022-03-27] MEDS: Cyanocobalamin (Vitamin B12) 1,000 MCG Tab PO SCH (07:34)
[2022-03-27] MEDS: Calcium Carbonate 750 MG Tab.Chew PO SCH (07:35)
[2022-03-27] MEDS: traMADol 50 MG Tab PO PRN (07:35)
[2022-03-27] MEDS: Acetaminophen 500 MG Tab PO SCH ×3 (07:35→19:38)
[2022-03-27] MEDS: BUPROPION 300 MG PO SCH (19:37)
[2022-03-27] MEDS: LEVOTHYROXINE 137 MCG PO SCH (19:37)
[2022-03-27] MEDS: Menthol 10%/Methyl Salicylate 30% 85 GM Tube TOP PRN (19:39)
[2022-03-28] MEDS: Polyethylene Glycol 3350 Powder 510 GM Bot PO SCH (08:09)
[2022-03-28] MEDS: traMADol 50 MG Tab PO PRN (08:09)
[2022-03-28] MEDS: guaiFENesin 600 MG Tab.ER PO SCH ×2 (08:10→19:38)
[2022-03-28] MEDS: Calcium Carbonate 750 MG Tab.Chew PO SCH (08:10)
[2022-03-28] MEDS: Citalopram 20 MG Tab PO SCH (08:11)
[2022-03-28] MEDS: Albuterol/Ipratropium 3.0-0.5 MG/3 ML Neb Soln NEB SCH ×2 (08:11→19:37)
[2022-03-28] MEDS: Furosemide 20 MG Tab PO SCH (08:11)
[2022-03-28] MEDS: Potassium Chloride 20 MEQ Tab.ER PO SCH ×2 (08:11→17:09)
[2022-03-28] MEDS: Cyanocobalamin (Vitamin B12) 1,000 MCG Tab PO SCH (08:12)
[2022-03-28] MEDS: Acetaminophen 500 MG Tab PO SCH ×3 (08:12→19:38)
[2022-03-28] MEDS: LEVOTHYROXINE 137 MCG PO SCH (19:37)
[2022-03-28] MEDS: BUPROPION 300 MG PO SCH (19:38)
[2022-03-28] MEDS: Menthol 10%/Methyl Salicylate 30% 85 GM Tube TOP PRN (19:39)
[2022-03-29] MEDS: traMADol 50 MG Tab PO PRN (07:55)
[2022-03-29] MEDS: Acetaminophen 500 MG Tab PO SCH ×3 (07:56→19:15)
[2022-03-29] MEDS: Furosemide 20 MG Tab PO SCH (07:57)
[2022-03-29] MEDS: Potassium Chloride 20 MEQ Tab.ER PO SCH ×2 (07:57→17:27)
[2022-03-29] MEDS: Citalopram 20 MG Tab PO SCH (07:57)
[2022-03-29] MEDS: Calcium Carbonate 750 MG Tab.Chew PO SCH (07:57)
[2022-03-29] MEDS: Albuterol/Ipratropium 3.0-0.5 MG/3 ML Neb Soln NEB SCH ×2 (07:57→19:13)
[2022-03-29] MEDS: Cyanocobalamin (Vitamin B12) 1,000 MCG Tab PO SCH (07:58)
[2022-03-29] MEDS: guaiFENesin 600 MG Tab.ER PO SCH ×2 (07:58→19:14)
[2022-03-29] MEDS: Polyethylene Glycol 3350 Powder 510 GM Bot PO SCH (07:58)
[2022-03-29] MEDS: LEVOTHYROXINE 137 MCG PO SCH (19:14)
[2022-03-29] MEDS: BUPROPION 300 MG PO SCH (19:14)
[2022-03-30] MEDS: Citalopram 20 MG Tab PO SCH (08:07)
[2022-03-30] MEDS: Albuterol/Ipratropium 3.0-0.5 MG/3 ML Neb Soln NEB SCH ×2 (08:08→19:32)
[2022-03-30] MEDS: Potassium Chloride 20 MEQ Tab.ER PO SCH ×2 (08:08→17:55)
[2022-03-30] MEDS: Furosemide 20 MG Tab PO SCH (08:09)
[2022-03-30] MEDS: Polyethylene Glycol 3350 Powder 510 GM Bot PO SCH (08:10)
[2022-03-30] MEDS: guaiFENesin 600 MG Tab.ER PO SCH ×2 (08:10→19:31)
[2022-03-30] MEDS: Calcium Carbonate 750 MG Tab.Chew PO SCH (08:11)
[2022-03-30] MEDS: Acetaminophen 500 MG Tab PO SCH ×3 (08:11→19:32)
[2022-03-30] MEDS: Cyanocobalamin (Vitamin B12) 1,000 MCG Tab PO SCH (08:12)
[2022-03-30] MEDS: traMADol 50 MG Tab PO PRN (11:56)
[2022-03-30] MEDS: LEVOTHYROXINE 137 MCG PO SCH (19:31)
[2022-03-30] MEDS: BUPROPION 300 MG PO SCH (19:31)
[2022-03-31] MEDS: Albuterol/Ipratropium 3.0-0.5 MG/3 ML Neb Soln NEB SCH ×2 (07:16→19:29)
[2022-03-31] MEDS: guaiFENesin 600 MG Tab.ER PO SCH ×2 (07:17→19:30)
[2022-03-31] MEDS: Acetaminophen 500 MG Tab PO SCH ×3 (07:17→19:31)
[2022-03-31] MEDS: Polyethylene Glycol 3350 Powder 510 GM Bot PO SCH (07:17)
[2022-03-31] MEDS: Calcium Carbonate 750 MG Tab.Chew PO SCH (07:17)
[2022-03-31] MEDS: Citalopram 20 MG Tab PO SCH (07:18)
[2022-03-31] MEDS: Cyanocobalamin (Vitamin B12) 1,000 MCG Tab PO SCH (07:18)
[2022-03-31] MEDS: Potassium Chloride 20 MEQ Tab.ER PO SCH ×2 (07:18→17:36)
[2022-03-31] MEDS: Furosemide 20 MG Tab PO SCH (07:19)
[2022-03-31] MEDS: Menthol 10%/Methyl Salicylate 30% 85 GM Tube TOP PRN (07:19)
[2022-03-31] MEDS: traMADol 50 MG Tab PO PRN (07:20)
[2022-03-31] MEDS: LEVOTHYROXINE 137 MCG PO SCH (19:30)
[2022-03-31] MEDS: BUPROPION 300 MG PO SCH (19:30)
[2022-04-01] MEDS: Albuterol/Ipratropium 3.0-0.5 MG/3 ML Neb Soln NEB SCH ×2 (07:22→19:33)
[2022-04-01] MEDS: Citalopram 20 MG Tab PO SCH (07:22)
[2022-04-01] MEDS: Potassium Chloride 20 MEQ Tab.ER PO SCH ×2 (07:24→17:35)
[2022-04-01] MEDS: Furosemide 20 MG Tab PO SCH (07:25)
[2022-04-01] MEDS: guaiFENesin 600 MG Tab.ER PO SCH ×2 (07:27→19:34)
[2022-04-01] MEDS: Polyethylene Glycol 3350 Powder 510 GM Bot PO SCH (07:27)
[2022-04-01] MEDS: Calcium Carbonate 750 MG Tab.Chew PO SCH (07:28)
[2022-04-01] MEDS: Acetaminophen 500 MG Tab PO SCH ×3 (07:28→19:34)
[2022-04-01] MEDS: Cyanocobalamin (Vitamin B12) 1,000 MCG Tab PO SCH (07:29)
[2022-04-01] MEDS: LEVOTHYROXINE 137 MCG PO SCH (19:33)
[2022-04-01] MEDS: BUPROPION 300 MG PO SCH (19:33)
[2022-04-01] MEDS: Menthol 10%/Methyl Salicylate 30% 85 GM Tube TOP PRN (19:35)
[2022-04-02] MEDS: Potassium Chloride 20 MEQ Tab.ER PO SCH ×2 (08:11→17:14)
[2022-04-02] MEDS: Albuterol/Ipratropium 3.0-0.5 MG/3 ML Neb Soln NEB SCH ×2 (08:11→19:28)
[2022-04-02] MEDS: Citalopram 20 MG Tab PO SCH (08:11)
[2022-04-02] MEDS: Furosemide 20 MG Tab PO SCH (08:11)
[2022-04-02] MEDS: Polyethylene Glycol 3350 Powder 510 GM Bot PO SCH (08:12)
[2022-04-02] MEDS: Calcium Carbonate 750 MG Tab.Chew PO SCH (08:12)
[2022-04-02] MEDS: guaiFENesin 600 MG Tab.ER PO SCH ×2 (08:12→19:28)
[2022-04-02] MEDS: Acetaminophen 500 MG Tab PO SCH ×3 (08:12→19:28)
[2022-04-02] MEDS: Cyanocobalamin (Vitamin B12) 1,000 MCG Tab PO SCH (08:13)
[2022-04-02] MEDS: traMADol 50 MG Tab PO PRN (11:18)
[2022-04-02] MEDS: LEVOTHYROXINE 137 MCG PO SCH (19:27)
[2022-04-02] MEDS: BUPROPION 300 MG PO SCH (19:27)
[2022-04-03] MEDS: Albuterol/Ipratropium 3.0-0.5 MG/3 ML Neb Soln NEB SCH ×2 (07:27→19:38)
[2022-04-03] MEDS: Potassium Chloride 20 MEQ Tab.ER PO SCH ×2 (07:28→17:15)
[2022-04-03] MEDS: Citalopram 20 MG Tab PO SCH (07:28)
[2022-04-03] MEDS: Furosemide 20 MG Tab PO SCH (07:30)
[2022-04-03] MEDS: Polyethylene Glycol 3350 Powder 510 GM Bot PO SCH (07:30)
[2022-04-03] MEDS: Acetaminophen 500 MG Tab PO SCH ×3 (07:31→19:41)
[2022-04-03] MEDS: Calcium Carbonate 750 MG Tab.Chew PO SCH (07:31)
[2022-04-03] MEDS: guaiFENesin 600 MG Tab.ER PO SCH ×2 (07:31→19:40)
[2022-04-03] MEDS: Cyanocobalamin (Vitamin B12) 1,000 MCG Tab PO SCH (07:32)
[2022-04-03] MEDS: traMADol 50 MG Tab PO PRN (07:32)
[2022-04-03] MEDS: LEVOTHYROXINE 137 MCG PO SCH (19:40)
[2022-04-03] MEDS: BUPROPION 300 MG PO SCH (19:40)
[2022-04-04] MEDS: Polyethylene Glycol 3350 Powder 510 GM Bot PO SCH (07:58)
[2022-04-04] MEDS: traMADol 50 MG Tab PO PRN (07:59)
[2022-04-04] MEDS: guaiFENesin 600 MG Tab.ER PO SCH ×2 (07:59→19:54)
[2022-04-04] MEDS: Acetaminophen 500 MG Tab PO SCH ×3 (08:00→19:55)
[2022-04-04] MEDS: Calcium Carbonate 750 MG Tab.Chew PO SCH (08:01)
[2022-04-04] MEDS: Albuterol/Ipratropium 3.0-0.5 MG/3 ML Neb Soln NEB SCH ×2 (08:02→19:52)
[2022-04-04] MEDS: Potassium Chloride 20 MEQ Tab.ER PO SCH ×2 (08:03→17:16)
[2022-04-04] MEDS: Furosemide 20 MG Tab PO SCH (08:03)
[2022-04-04] MEDS: Cyanocobalamin (Vitamin B12) 1,000 MCG Tab PO SCH (08:03)
[2022-04-04] MEDS: Citalopram 20 MG Tab PO SCH (08:03)
[2022-04-04] MEDS: BUPROPION 300 MG PO SCH (19:54)
[2022-04-04] MEDS: LEVOTHYROXINE 137 MCG PO SCH (19:54)
[2022-04-05] MEDS: Citalopram 20 MG Tab PO SCH (07:43)
[2022-04-05] MEDS: Albuterol/Ipratropium 3.0-0.5 MG/3 ML Neb Soln NEB SCH ×2 (07:43→19:43)
[2022-04-05] MEDS: Potassium Chloride 20 MEQ Tab.ER PO SCH ×2 (07:44→17:34)
[2022-04-05] MEDS: Furosemide 20 MG Tab PO SCH (07:44)
[2022-04-05] MEDS: guaiFENesin 600 MG Tab.ER PO SCH ×2 (07:45→19:44)
[2022-04-05] MEDS: Cyanocobalamin (Vitamin B12) 1,000 MCG Tab PO SCH (07:45)
[2022-04-05] MEDS: Acetaminophen 500 MG Tab PO SCH ×3 (07:45→19:44)
[2022-04-05] MEDS: Polyethylene Glycol 3350 Powder 510 GM Bot PO SCH (07:45)
[2022-04-05] MEDS: traMADol 50 MG Tab PO PRN (07:46)
[2022-04-05] MEDS: Calcium Carbonate 750 MG Tab.Chew PO SCH (07:46)
[2022-04-05] MEDS: BUPROPION 300 MG PO SCH (19:43)
[2022-04-05] MEDS: LEVOTHYROXINE 137 MCG PO SCH (19:43)
[2022-04-05] MEDS: Menthol 10%/Methyl Salicylate 30% 85 GM Tube TOP PRN (19:45)
[2022-04-06] MEDS: Potassium Chloride 20 MEQ Tab.ER PO SCH ×2 (08:15→17:05)
[2022-04-06] MEDS: Citalopram 20 MG Tab PO SCH (08:15)
[2022-04-06] MEDS: Furosemide 20 MG Tab PO SCH (08:15)
[2022-04-06] MEDS: guaiFENesin 600 MG Tab.ER PO SCH ×2 (08:16→19:38)
[2022-04-06] MEDS: Polyethylene Glycol 3350 Powder 510 GM Bot PO SCH (08:16)
[2022-04-06] MEDS: Calcium Carbonate 750 MG Tab.Chew PO SCH (08:17)
[2022-04-06] MEDS: Acetaminophen 500 MG Tab PO SCH ×3 (08:18→19:38)
[2022-04-06] MEDS: Cyanocobalamin (Vitamin B12) 1,000 MCG Tab PO SCH (08:19)
[2022-04-06] MEDS: Albuterol/Ipratropium 3.0-0.5 MG/3 ML Neb Soln NEB SCH ×2 (08:19→19:37)
[2022-04-06] MEDS: LEVOTHYROXINE 137 MCG PO SCH (19:37)
[2022-04-06] MEDS: BUPROPION 300 MG PO SCH (19:37)
[2022-04-06] MEDS: Menthol 10%/Methyl Salicylate 30% 85 GM Tube TOP PRN (19:39)
[2022-04-07] MEDS: Citalopram 20 MG Tab PO SCH (07:08)
[2022-04-07] MEDS: Albuterol/Ipratropium 3.0-0.5 MG/3 ML Neb Soln NEB SCH ×2 (07:08→19:30)
[2022-04-07] MEDS: Potassium Chloride 20 MEQ Tab.ER PO SCH ×2 (07:09→17:46)
[2022-04-07] MEDS: Furosemide 20 MG Tab PO SCH (07:09)
[2022-04-07] MEDS: Polyethylene Glycol 3350 Powder 510 GM Bot PO SCH (07:10)
[2022-04-07] MEDS: Acetaminophen 500 MG Tab PO SCH ×3 (07:10→19:31)
[2022-04-07] MEDS: guaiFENesin 600 MG Tab.ER PO SCH ×2 (07:10→19:31)
[2022-04-07] MEDS: Cyanocobalamin (Vitamin B12) 1,000 MCG Tab PO SCH (07:10)
[2022-04-07] MEDS: Calcium Carbonate 750 MG Tab.Chew PO SCH (07:11)
[2022-04-07] MEDS: traMADol 50 MG Tab PO PRN (07:11)
[2022-04-07] MEDS: BUPROPION 300 MG PO SCH (19:30)
[2022-04-07] MEDS: LEVOTHYROXINE 137 MCG PO SCH (19:31)
[2022-04-07] MEDS: Menthol 10%/Methyl Salicylate 30% 85 GM Tube TOP PRN (19:33)
[2022-04-08] MEDS: Calcium Carbonate 750 MG Tab.Chew PO SCH (07:52)
[2022-04-08] MEDS: Albuterol/Ipratropium 3.0-0.5 MG/3 ML Neb Soln NEB SCH ×2 (07:52→19:36)
[2022-04-08] MEDS: Citalopram 20 MG Tab PO SCH (07:52)
[2022-04-08] MEDS: Potassium Chloride 20 MEQ Tab.ER PO SCH ×2 (07:52→17:07)
[2022-04-08] MEDS: Furosemide 20 MG Tab PO SCH (07:53)
[2022-04-08] MEDS: Polyethylene Glycol 3350 Powder 510 GM Bot PO SCH (07:53)
[2022-04-08] MEDS: Cyanocobalamin (Vitamin B12) 1,000 MCG Tab PO SCH (07:54)
[2022-04-08] MEDS: Acetaminophen 500 MG Tab PO SCH ×3 (07:54→19:38)
[2022-04-08] MEDS: guaiFENesin 600 MG Tab.ER PO SCH ×2 (07:54→19:37)
[2022-04-08] MEDS: traMADol 50 MG Tab PO PRN (11:39)
[2022-04-08] MEDS: BUPROPION 300 MG PO SCH (19:37)
[2022-04-08] MEDS: LEVOTHYROXINE 137 MCG PO SCH (19:37)
[2022-04-08] MEDS: Menthol 10%/Methyl Salicylate 30% 85 GM Tube TOP PRN (19:40)
[2022-04-09] MEDS: Albuterol/Ipratropium 3.0-0.5 MG/3 ML Neb Soln NEB SCH ×2 (07:38→19:12)
[2022-04-09] MEDS: guaiFENesin 600 MG Tab.ER PO SCH ×2 (07:39→19:12)
[2022-04-09] MEDS: Cyanocobalamin (Vitamin B12) 1,000 MCG Tab PO SCH (07:39)
[2022-04-09] MEDS: Calcium Carbonate 750 MG Tab.Chew PO SCH (07:39)
[2022-04-09] MEDS: Polyethylene Glycol 3350 Powder 510 GM Bot PO SCH (07:39)
[2022-04-09] MEDS: Acetaminophen 500 MG Tab PO SCH ×3 (07:40→19:12)
[2022-04-09] MEDS: traMADol 50 MG Tab PO PRN (07:40)
[2022-04-09] MEDS: Furosemide 20 MG Tab PO SCH (07:41)
[2022-04-09] MEDS: Citalopram 20 MG Tab PO SCH (07:41)
[2022-04-09] MEDS: Potassium Chloride 20 MEQ Tab.ER PO SCH ×2 (07:41→17:23)
[2022-04-09] MEDS: LEVOTHYROXINE 137 MCG PO SCH (19:11)
[2022-04-09] MEDS: BUPROPION 300 MG PO SCH (19:11)
[2022-04-10] MEDS: Potassium Chloride 20 MEQ Tab.ER PO SCH ×2 (07:37→17:40)
[2022-04-10] MEDS: Citalopram 20 MG Tab PO SCH (07:37)
[2022-04-10] MEDS: Furosemide 20 MG Tab PO SCH (07:37)
[2022-04-10] MEDS: Albuterol/Ipratropium 3.0-0.5 MG/3 ML Neb Soln NEB SCH ×2 (07:38→19:34)
[2022-04-10] MEDS: Polyethylene Glycol 3350 Powder 510 GM Bot PO SCH (07:38)
[2022-04-10] MEDS: guaiFENesin 600 MG Tab.ER PO SCH ×2 (07:39→19:35)
[2022-04-10] MEDS: Calcium Carbonate 750 MG Tab.Chew PO SCH (07:39)
[2022-04-10] MEDS: Acetaminophen 500 MG Tab PO SCH ×3 (07:40→19:35)
[2022-04-10] MEDS: Cyanocobalamin (Vitamin B12) 1,000 MCG Tab PO SCH (07:46)
[2022-04-10] MEDS: traMADol 50 MG Tab PO PRN (11:37)
[2022-04-10] MEDS: LEVOTHYROXINE 137 MCG PO SCH (19:35)
[2022-04-10] MEDS: BUPROPION 300 MG PO SCH (19:35)
[2022-04-11] MEDS: Polyethylene Glycol 3350 Powder 510 GM Bot PO SCH (08:04)
[2022-04-11] MEDS: traMADol 50 MG Tab PO PRN (08:05)
[2022-04-11] MEDS: Furosemide 20 MG Tab PO SCH (08:07)
[2022-04-11] MEDS: Citalopram 20 MG Tab PO SCH (08:07)
[2022-04-11] MEDS: Potassium Chloride 20 MEQ Tab.ER PO SCH ×2 (08:07→17:14)
[2022-04-11] MEDS: Albuterol/Ipratropium 3.0-0.5 MG/3 ML Neb Soln NEB SCH ×2 (08:07→19:20)
[2022-04-11] MEDS: guaiFENesin 600 MG Tab.ER PO SCH ×2 (08:08→19:22)
[2022-04-11] MEDS: Acetaminophen 500 MG Tab PO SCH ×3 (08:08→19:22)
[2022-04-11] MEDS: Calcium Carbonate 750 MG Tab.Chew PO SCH (08:08)
[2022-04-11] MEDS: Cyanocobalamin (Vitamin B12) 1,000 MCG Tab PO SCH (08:09)
[2022-04-11] MEDS: BUPROPION 300 MG PO SCH (19:21)
[2022-04-11] MEDS: LEVOTHYROXINE 137 MCG PO SCH (19:22)
[2022-04-11] MEDS: Menthol 10%/Methyl Salicylate 30% 85 GM Tube TOP PRN (19:23)
[2022-04-12] MEDS: traMADol 50 MG Tab PO PRN (07:37)
[2022-04-12] MEDS: Citalopram 20 MG Tab PO SCH (07:38)
[2022-04-12] MEDS: Furosemide 20 MG Tab PO SCH (07:38)
[2022-04-12] MEDS: Potassium Chloride 20 MEQ Tab.ER PO SCH ×2 (07:38→17:16)
[2022-04-12] MEDS: Albuterol/Ipratropium 3.0-0.5 MG/3 ML Neb Soln NEB SCH ×2 (07:39→19:39)
[2022-04-12] MEDS: Calcium Carbonate 750 MG Tab.Chew PO SCH (07:40)
[2022-04-12] MEDS: Polyethylene Glycol 3350 Powder 510 GM Bot PO SCH (07:40)
[2022-04-12] MEDS: guaiFENesin 600 MG Tab.ER PO SCH ×2 (07:40→19:42)
[2022-04-12] MEDS: Acetaminophen 500 MG Tab PO SCH ×3 (07:40→19:42)
[2022-04-12] MEDS: Cyanocobalamin (Vitamin B12) 1,000 MCG Tab PO SCH (07:41)
[2022-04-12] MEDS: Menthol 10%/Methyl Salicylate 30% 85 GM Tube TOP PRN (07:58)
[2022-04-12] MEDS: LEVOTHYROXINE 137 MCG PO SCH (19:41)
[2022-04-12] MEDS: BUPROPION 300 MG PO SCH (19:42)
[2022-04-13] MEDS: Citalopram 20 MG Tab PO SCH (07:19)
[2022-04-13] MEDS: Furosemide 20 MG Tab PO SCH (07:20)
[2022-04-13] MEDS: Potassium Chloride 20 MEQ Tab.ER PO SCH ×2 (07:20→17:31)
[2022-04-13] MEDS: Albuterol/Ipratropium 3.0-0.5 MG/3 ML Neb Soln NEB SCH ×2 (07:21→19:39)
[2022-04-13] MEDS: Polyethylene Glycol 3350 Powder 510 GM Bot PO SCH (07:21)
[2022-04-13] MEDS: guaiFENesin 600 MG Tab.ER PO SCH ×2 (07:22→19:42)
[2022-04-13] MEDS: Acetaminophen 500 MG Tab PO SCH ×3 (07:23→19:42)
[2022-04-13] MEDS: Calcium Carbonate 750 MG Tab.Chew PO SCH (07:23)
[2022-04-13] MEDS: Cyanocobalamin (Vitamin B12) 1,000 MCG Tab PO SCH (07:25)
[2022-04-13] MEDS: LEVOTHYROXINE 137 MCG PO SCH (19:41)
[2022-04-13] MEDS: BUPROPION 300 MG PO SCH (19:42)
[2022-04-14] MEDS: Potassium Chloride 20 MEQ Tab.ER PO SCH ×2 (07:39→17:24)
[2022-04-14] MEDS: Furosemide 20 MG Tab PO SCH (07:39)
[2022-04-14] MEDS: Citalopram 20 MG Tab PO SCH (07:39)
[2022-04-14] MEDS: Albuterol/Ipratropium 3.0-0.5 MG/3 ML Neb Soln NEB SCH ×2 (07:40→19:36)
[2022-04-14] MEDS: Polyethylene Glycol 3350 Powder 510 GM Bot PO SCH (07:41)
[2022-04-14] MEDS: guaiFENesin 600 MG Tab.ER PO SCH ×2 (07:41→19:38)
[2022-04-14] MEDS: Acetaminophen 500 MG Tab PO SCH ×3 (07:42→19:39)
[2022-04-14] MEDS: Calcium Carbonate 750 MG Tab.Chew PO SCH (07:42)
[2022-04-14] MEDS: Cyanocobalamin (Vitamin B12) 1,000 MCG Tab PO SCH (07:43)
[2022-04-14] MEDS: LEVOTHYROXINE 137 MCG PO SCH (19:38)
[2022-04-14] MEDS: BUPROPION 300 MG PO SCH (19:39)
[2022-04-15] MEDS: Citalopram 20 MG Tab PO SCH (07:54)
[2022-04-15] MEDS: Furosemide 20 MG Tab PO SCH (07:54)
[2022-04-15] MEDS: Potassium Chloride 20 MEQ Tab.ER PO SCH ×2 (07:54→17:40)
[2022-04-15] MEDS: Calcium Carbonate 750 MG Tab.Chew PO SCH (07:55)
[2022-04-15] MEDS: guaiFENesin 600 MG Tab.ER PO SCH ×2 (07:55→19:50)
[2022-04-15] MEDS: Polyethylene Glycol 3350 Powder 510 GM Bot PO SCH (07:55)
[2022-04-15] MEDS: Albuterol/Ipratropium 3.0-0.5 MG/3 ML Neb Soln NEB SCH ×2 (07:56→21:28)
[2022-04-15] MEDS: Cyanocobalamin (Vitamin B12) 1,000 MCG Tab PO SCH (07:56)
[2022-04-15] MEDS: Acetaminophen 500 MG Tab PO SCH ×3 (07:56→19:50)
[2022-04-15] MEDS: LEVOTHYROXINE 137 MCG PO SCH (19:49)
[2022-04-15] MEDS: BUPROPION 300 MG PO SCH (19:50)
[2022-04-16] MEDS: Albuterol/Ipratropium 3.0-0.5 MG/3 ML Neb Soln NEB SCH ×2 (07:51→19:14)
[2022-04-16] MEDS: Calcium Carbonate 750 MG Tab.Chew PO SCH (07:52)
[2022-04-16] MEDS: Polyethylene Glycol 3350 Powder 510 GM Bot PO SCH (07:52)
[2022-04-16] MEDS: Acetaminophen 500 MG Tab PO SCH ×3 (07:53→19:15)
[2022-04-16] MEDS: traMADol 50 MG Tab PO PRN (07:53)
[2022-04-16] MEDS: Potassium Chloride 20 MEQ Tab.ER PO SCH ×2 (07:54→17:29)
[2022-04-16] MEDS: Citalopram 20 MG Tab PO SCH (07:54)
[2022-04-16] MEDS: Cyanocobalamin (Vitamin B12) 1,000 MCG Tab PO SCH (07:55)
[2022-04-16] MEDS: Furosemide 20 MG Tab PO SCH (07:55)
[2022-04-16] MEDS: guaiFENesin 600 MG Tab.ER PO SCH ×2 (08:04→19:15)
[2022-04-16] MEDS: BUPROPION 300 MG PO SCH (19:15)
[2022-04-16] MEDS: LEVOTHYROXINE 137 MCG PO SCH (19:15)
[2022-04-17] MEDS: Citalopram 20 MG Tab PO SCH (07:48)
[2022-04-17] MEDS: Albuterol/Ipratropium 3.0-0.5 MG/3 ML Neb Soln NEB SCH ×2 (07:49→19:50)
[2022-04-17] MEDS: Potassium Chloride 20 MEQ Tab.ER PO SCH ×2 (07:49→17:20)
[2022-04-17] MEDS: Furosemide 20 MG Tab PO SCH (07:50)
[2022-04-17] MEDS: Polyethylene Glycol 3350 Powder 510 GM Bot PO SCH (07:50)
[2022-04-17] MEDS: guaiFENesin 600 MG Tab.ER PO SCH ×2 (07:51→19:53)
[2022-04-17] MEDS: Calcium Carbonate 750 MG Tab.Chew PO SCH (07:51)
[2022-04-17] MEDS: Acetaminophen 500 MG Tab PO SCH ×3 (07:51→19:53)
[2022-04-17] MEDS: Cyanocobalamin (Vitamin B12) 1,000 MCG Tab PO SCH (07:52)
[2022-04-17] MEDS: traMADol 50 MG Tab PO PRN (11:42)
[2022-04-17] MEDS: LEVOTHYROXINE 137 MCG PO SCH (19:52)
[2022-04-17] MEDS: BUPROPION 300 MG PO SCH (19:53)
[2022-04-18] MEDS: Polyethylene Glycol 3350 Powder 510 GM Bot PO SCH (07:50)
[2022-04-18] MEDS: Albuterol/Ipratropium 3.0-0.5 MG/3 ML Neb Soln NEB SCH ×2 (07:50→19:10)
[2022-04-18] MEDS: traMADol 50 MG Tab PO PRN (07:51)
[2022-04-18] MEDS: Acetaminophen 500 MG Tab PO SCH ×3 (07:51→19:12)
[2022-04-18] MEDS: Calcium Carbonate 750 MG Tab.Chew PO SCH (07:53)
[2022-04-18] MEDS: guaiFENesin 600 MG Tab.ER PO SCH ×2 (07:53→19:11)
[2022-04-18] MEDS: Citalopram 20 MG Tab PO SCH (07:54)
[2022-04-18] MEDS: Potassium Chloride 20 MEQ Tab.ER PO SCH ×2 (07:54→17:28)
[2022-04-18] MEDS: Cyanocobalamin (Vitamin B12) 1,000 MCG Tab PO SCH (07:55)
[2022-04-18] MEDS: Furosemide 20 MG Tab PO SCH (07:55)
[2022-04-18] MEDS: LEVOTHYROXINE 137 MCG PO SCH (19:11)
[2022-04-18] MEDS: BUPROPION 300 MG PO SCH (19:11)
[2022-04-18] MEDS: Menthol 10%/Methyl Salicylate 30% 85 GM Tube TOP PRN (19:14)
[2022-04-19] MEDS: Potassium Chloride 20 MEQ Tab.ER PO SCH ×2 (07:48→17:23)
[2022-04-19] MEDS: Furosemide 20 MG Tab PO SCH (07:48)
[2022-04-19] MEDS: Citalopram 20 MG Tab PO SCH (07:48)
[2022-04-19] MEDS: Polyethylene Glycol 3350 Powder 510 GM Bot PO SCH (07:49)
[2022-04-19] MEDS: guaiFENesin 600 MG Tab.ER PO SCH ×2 (07:50→19:21)
[2022-04-19] MEDS: Acetaminophen 500 MG Tab PO SCH ×3 (07:50→19:20)
[2022-04-19] MEDS: Calcium Carbonate 750 MG Tab.Chew PO SCH (07:50)
[2022-04-19] MEDS: Cyanocobalamin (Vitamin B12) 1,000 MCG Tab PO SCH (07:51)
[2022-04-19] MEDS: traMADol 50 MG Tab PO PRN ×2 (07:54→17:25)
[2022-04-19] MEDS: Albuterol/Ipratropium 3.0-0.5 MG/3 ML Neb Soln NEB SCH ×2 (08:01→19:20)
[2022-04-19] MEDS: BUPROPION 300 MG PO SCH (19:21)
[2022-04-19] MEDS: LEVOTHYROXINE 137 MCG PO SCH (19:21)
[2022-04-20] MEDS: traMADol 50 MG Tab PO PRN (07:55)
[2022-04-20] MEDS: Cyanocobalamin (Vitamin B12) 1,000 MCG Tab PO SCH (07:56)
[2022-04-20] MEDS: Acetaminophen 500 MG Tab PO SCH ×3 (07:56→19:07)
[2022-04-20] MEDS: guaiFENesin 600 MG Tab.ER PO SCH ×2 (07:56→19:06)
[2022-04-20] MEDS: Furosemide 20 MG Tab PO SCH (07:57)
[2022-04-20] MEDS: Citalopram 20 MG Tab PO SCH (07:57)
[2022-04-20] MEDS: Potassium Chloride 20 MEQ Tab.ER PO SCH ×2 (07:57→17:14)
[2022-04-20] MEDS: Albuterol/Ipratropium 3.0-0.5 MG/3 ML Neb Soln NEB SCH ×2 (07:57→19:06)
[2022-04-20] MEDS: Calcium Carbonate 750 MG Tab.Chew PO SCH (07:58)
[2022-04-20] MEDS: Polyethylene Glycol 3350 Powder 510 GM Bot PO SCH (07:58)
[2022-04-20] MEDS: LEVOTHYROXINE 137 MCG PO SCH (19:06)
[2022-04-20] MEDS: BUPROPION 300 MG PO SCH (19:06)
[2022-04-21] MEDS: Polyethylene Glycol 3350 Powder 510 GM Bot PO SCH (08:03)
[2022-04-21] MEDS: traMADol 50 MG Tab PO PRN (08:03)
[2022-04-21] MEDS: Acetaminophen 500 MG Tab PO SCH ×3 (08:04→19:50)
[2022-04-21] MEDS: Calcium Carbonate 750 MG Tab.Chew PO SCH (08:05)
[2022-04-21] MEDS: Albuterol/Ipratropium 3.0-0.5 MG/3 ML Neb Soln NEB SCH ×2 (08:05→19:47)
[2022-04-21] MEDS: guaiFENesin 600 MG Tab.ER PO SCH ×2 (08:05→19:49)
[2022-04-21] MEDS: Citalopram 20 MG Tab PO SCH (08:05)
[2022-04-21] MEDS: Cyanocobalamin (Vitamin B12) 1,000 MCG Tab PO SCH (08:05)
[2022-04-21] MEDS: Potassium Chloride 20 MEQ Tab.ER PO SCH ×2 (08:06→17:02)
[2022-04-21] MEDS: Furosemide 20 MG Tab PO SCH (08:06)
[2022-04-21] MEDS: LEVOTHYROXINE 137 MCG PO SCH (19:49)
[2022-04-21] MEDS: BUPROPION 300 MG PO SCH (19:50)
[2022-04-22] MEDS: Polyethylene Glycol 3350 Powder 510 GM Bot PO SCH (08:04)
[2022-04-22] MEDS: traMADol 50 MG Tab PO PRN (08:05)
[2022-04-22] MEDS: Acetaminophen 500 MG Tab PO SCH ×3 (08:06→19:44)
[2022-04-22] MEDS: Calcium Carbonate 750 MG Tab.Chew PO SCH (08:06)
[2022-04-22] MEDS: Potassium Chloride 20 MEQ Tab.ER PO SCH ×2 (08:07→17:08)
[2022-04-22] MEDS: Cyanocobalamin (Vitamin B12) 1,000 MCG Tab PO SCH (08:07)
[2022-04-22] MEDS: Citalopram 20 MG Tab PO SCH (08:07)
[2022-04-22] MEDS: Albuterol/Ipratropium 3.0-0.5 MG/3 ML Neb Soln NEB SCH ×2 (08:07→19:41)
[2022-04-22] MEDS: guaiFENesin 600 MG Tab.ER PO SCH ×2 (08:08→19:43)
[2022-04-22] MEDS: Furosemide 20 MG Tab PO SCH (08:08)
[2022-04-22] MEDS: BUPROPION 300 MG PO SCH (19:43)
[2022-04-22] MEDS: LEVOTHYROXINE 137 MCG PO SCH (19:43)
[2022-04-23] MEDS: Potassium Chloride 20 MEQ Tab.ER PO SCH ×2 (07:29→17:11)
[2022-04-23] MEDS: Citalopram 20 MG Tab PO SCH (07:29)
[2022-04-23] MEDS: Polyethylene Glycol 3350 Powder 510 GM Bot PO SCH (07:30)
[2022-04-23] MEDS: Calcium Carbonate 750 MG Tab.Chew PO SCH (07:30)
[2022-04-23] MEDS: Furosemide 20 MG Tab PO SCH (07:30)
[2022-04-23] MEDS: Albuterol/Ipratropium 3.0-0.5 MG/3 ML Neb Soln NEB SCH ×2 (07:31→19:19)
[2022-04-23] MEDS: Acetaminophen 500 MG Tab PO SCH ×3 (07:31→19:21)
[2022-04-23] MEDS: Menthol 10%/Methyl Salicylate 30% 85 GM Tube TOP PRN ×2 (07:32→19:23)
[2022-04-23] MEDS: guaiFENesin 600 MG Tab.ER PO SCH ×2 (07:32→19:20)
[2022-04-23] MEDS: Cyanocobalamin (Vitamin B12) 1,000 MCG Tab PO SCH (07:32)
[2022-04-23] MEDS: LEVOTHYROXINE 137 MCG PO SCH (19:20)
[2022-04-23] MEDS: BUPROPION 300 MG PO SCH (19:20)
[2022-04-24] MEDS: Albuterol/Ipratropium 3.0-0.5 MG/3 ML Neb Soln NEB SCH ×2 (07:30→19:15)
[2022-04-24] MEDS: Furosemide 20 MG Tab PO SCH (07:31)
[2022-04-24] MEDS: Polyethylene Glycol 3350 Powder 510 GM Bot PO SCH (07:31)
[2022-04-24] MEDS: Citalopram 20 MG Tab PO SCH (07:31)
[2022-04-24] MEDS: guaiFENesin 600 MG Tab.ER PO SCH ×2 (07:31→19:15)
[2022-04-24] MEDS: Potassium Chloride 20 MEQ Tab.ER PO SCH ×2 (07:31→17:25)
[2022-04-24] MEDS: Acetaminophen 500 MG Tab PO SCH ×3 (07:32→19:15)
[2022-04-24] MEDS: Calcium Carbonate 750 MG Tab.Chew PO SCH (07:32)
[2022-04-24] MEDS: Cyanocobalamin (Vitamin B12) 1,000 MCG Tab PO SCH (07:33)
[2022-04-24] MEDS: Menthol 10%/Methyl Salicylate 30% 85 GM Tube TOP PRN (08:27)
[2022-04-24] MEDS: BUPROPION 300 MG PO SCH (19:14)
[2022-04-24] MEDS: LEVOTHYROXINE 137 MCG PO SCH (19:14)
[2022-04-25] MEDS: Albuterol/Ipratropium 3.0-0.5 MG/3 ML Neb Soln NEB SCH ×2 (07:47→19:15)
[2022-04-25] MEDS: traMADol 50 MG Tab PO PRN (07:48)
[2022-04-25] MEDS: Acetaminophen 500 MG Tab PO SCH ×3 (07:49→19:15)
[2022-04-25] MEDS: Polyethylene Glycol 3350 Powder 510 GM Bot PO SCH (07:50)
[2022-04-25] MEDS: Cyanocobalamin (Vitamin B12) 1,000 MCG Tab PO SCH (07:50)
[2022-04-25] MEDS: Calcium Carbonate 750 MG Tab.Chew PO SCH (07:50)
[2022-04-25] MEDS: guaiFENesin 600 MG Tab.ER PO SCH ×2 (07:50→19:15)
[2022-04-25] MEDS: Potassium Chloride 20 MEQ Tab.ER PO SCH ×2 (07:51→17:09)
[2022-04-25] MEDS: Citalopram 20 MG Tab PO SCH (07:51)
[2022-04-25] MEDS: Furosemide 20 MG Tab PO SCH (07:51)
[2022-04-25] MEDS: BUPROPION 300 MG PO SCH (19:14)
[2022-04-25] MEDS: LEVOTHYROXINE 137 MCG PO SCH (19:14)
[2022-04-26] MEDS: Citalopram 20 MG Tab PO SCH (07:32)
[2022-04-26] MEDS: Albuterol/Ipratropium 3.0-0.5 MG/3 ML Neb Soln NEB SCH ×2 (07:32→19:21)
[2022-04-26] MEDS: Potassium Chloride 20 MEQ Tab.ER PO SCH ×2 (07:33→17:08)
[2022-04-26] MEDS: Furosemide 20 MG Tab PO SCH (07:33)
[2022-04-26] MEDS: guaiFENesin 600 MG Tab.ER PO SCH ×2 (07:34→19:23)
[2022-04-26] MEDS: Polyethylene Glycol 3350 Powder 510 GM Bot PO SCH (07:34)
[2022-04-26] MEDS: Acetaminophen 500 MG Tab PO SCH ×3 (07:35→19:22)
[2022-04-26] MEDS: Calcium Carbonate 750 MG Tab.Chew PO SCH (07:35)
[2022-04-26] MEDS: Cyanocobalamin (Vitamin B12) 1,000 MCG Tab PO SCH (07:36)
[2022-04-26] MEDS: BUPROPION 300 MG PO SCH (19:23)
[2022-04-26] MEDS: LEVOTHYROXINE 137 MCG PO SCH (19:23)
[2022-04-27] MEDS: Citalopram 20 MG Tab PO SCH (07:40)
[2022-04-27] MEDS: Furosemide 20 MG Tab PO SCH (07:41)
[2022-04-27] MEDS: Potassium Chloride 20 MEQ Tab.ER PO SCH ×2 (07:41→17:21)
[2022-04-27] MEDS: Albuterol/Ipratropium 3.0-0.5 MG/3 ML Neb Soln NEB SCH ×2 (07:41→19:28)
[2022-04-27] MEDS: Calcium Carbonate 750 MG Tab.Chew PO SCH (07:42)
[2022-04-27] MEDS: Polyethylene Glycol 3350 Powder 510 GM Bot PO SCH (07:42)
[2022-04-27] MEDS: guaiFENesin 600 MG Tab.ER PO SCH ×2 (07:42→19:28)
[2022-04-27] MEDS: Cyanocobalamin (Vitamin B12) 1,000 MCG Tab PO SCH (07:43)
[2022-04-27] MEDS: Acetaminophen 500 MG Tab PO SCH ×3 (07:43→19:29)
[2022-04-27] MEDS: BUPROPION 300 MG PO SCH (19:28)
[2022-04-27] MEDS: LEVOTHYROXINE 137 MCG PO SCH (19:28)
[2022-04-28] MEDS: guaiFENesin/Dextromethorphan 100-10 MG/5 ML Soln 10 ML Cup PO PRN (05:03)
[2022-04-28] MEDS: Citalopram 20 MG Tab PO SCH (07:38)
[2022-04-28] MEDS: Albuterol/Ipratropium 3.0-0.5 MG/3 ML Neb Soln NEB SCH ×2 (07:39→19:29)
[2022-04-28] MEDS: Potassium Chloride 20 MEQ Tab.ER PO SCH ×2 (07:40→17:11)
[2022-04-28] MEDS: Polyethylene Glycol 3350 Powder 510 GM Bot PO SCH (07:41)
[2022-04-28] MEDS: guaiFENesin 600 MG Tab.ER PO SCH ×2 (07:42→19:30)
[2022-04-28] MEDS: Calcium Carbonate 750 MG Tab.Chew PO SCH (07:42)
[2022-04-28] MEDS: Acetaminophen 500 MG Tab PO SCH ×3 (07:43→19:30)
[2022-04-28] MEDS: Furosemide 20 MG Tab PO SCH (07:44)
[2022-04-28] MEDS: Cyanocobalamin (Vitamin B12) 1,000 MCG Tab PO SCH (07:44)
[2022-04-28] MEDS: Albuterol/Ipratropium 3.0-0.5 MG/3 ML Neb Soln NEB PRN (19:29)
[2022-04-28] MEDS: BUPROPION 300 MG PO SCH (19:30)
[2022-04-28] MEDS: LEVOTHYROXINE 137 MCG PO SCH (19:30)
[2022-04-29] MEDS: Polyethylene Glycol 3350 Powder 510 GM Bot PO SCH (08:10)
[2022-04-29] MEDS: Citalopram 20 MG Tab PO SCH (08:11)
[2022-04-29] MEDS: Furosemide 20 MG Tab PO SCH (08:11)
[2022-04-29] MEDS: Potassium Chloride 20 MEQ Tab.ER PO SCH ×2 (08:11→17:58)
[2022-04-29] MEDS: Albuterol/Ipratropium 3.0-0.5 MG/3 ML Neb Soln NEB SCH ×2 (08:12→19:43)
[2022-04-29] MEDS: Calcium Carbonate 750 MG Tab.Chew PO SCH (08:12)
[2022-04-29] MEDS: Acetaminophen 500 MG Tab PO SCH ×3 (08:13→19:42)
[2022-04-29] MEDS: guaiFENesin 600 MG Tab.ER PO SCH ×2 (08:13→19:43)
[2022-04-29] MEDS: Cyanocobalamin (Vitamin B12) 1,000 MCG Tab PO SCH (08:13)
[2022-04-29] MEDS: LEVOTHYROXINE 137 MCG PO SCH (19:42)
[2022-04-29] MEDS: BUPROPION 300 MG PO SCH (19:42)
[2022-04-30] MEDS: Citalopram 20 MG Tab PO SCH (07:27)
[2022-04-30] MEDS: Albuterol/Ipratropium 3.0-0.5 MG/3 ML Neb Soln NEB SCH ×2 (07:28→19:18)
[2022-04-30] MEDS: Polyethylene Glycol 3350 Powder 510 GM Bot PO SCH (07:28)
[2022-04-30] MEDS: Furosemide 20 MG Tab PO SCH (07:28)
[2022-04-30] MEDS: Potassium Chloride 20 MEQ Tab.ER PO SCH ×2 (07:28→17:26)
[2022-04-30] MEDS: Calcium Carbonate 750 MG Tab.Chew PO SCH (07:29)
[2022-04-30] MEDS: guaiFENesin 600 MG Tab.ER PO SCH ×2 (07:29→19:17)
[2022-04-30] MEDS: Acetaminophen 500 MG Tab PO SCH ×3 (07:29→19:18)
[2022-04-30] MEDS: Cyanocobalamin (Vitamin B12) 1,000 MCG Tab PO SCH (07:30)
[2022-04-30] MEDS: BUPROPION 300 MG PO SCH (19:17)
[2022-04-30] MEDS: LEVOTHYROXINE 137 MCG PO SCH (19:17)
[2022-05-01] MEDS: Albuterol/Ipratropium 3.0-0.5 MG/3 ML Neb Soln NEB SCH ×2 (07:23→19:21)
[2022-05-01] MEDS: Polyethylene Glycol 3350 Powder 510 GM Bot PO SCH (07:24)
[2022-05-01] MEDS: Furosemide 20 MG Tab PO SCH (07:24)
[2022-05-01] MEDS: Citalopram 20 MG Tab PO SCH (07:24)
[2022-05-01] MEDS: Potassium Chloride 20 MEQ Tab.ER PO SCH ×2 (07:24→17:27)
[2022-05-01] MEDS: Acetaminophen 500 MG Tab PO SCH ×3 (07:25→19:22)
[2022-05-01] MEDS: Calcium Carbonate 750 MG Tab.Chew PO SCH (07:25)
[2022-05-01] MEDS: guaiFENesin 600 MG Tab.ER PO SCH ×2 (07:25→19:22)
[2022-05-01] MEDS: Cyanocobalamin (Vitamin B12) 1,000 MCG Tab PO SCH (07:25)
[2022-05-01] MEDS: Menthol 10%/Methyl Salicylate 15% 85 GM Tube TOP PRN ×2 (09:32→19:24)
[2022-05-01] MEDS: BUPROPION 300 MG PO SCH (19:21)
[2022-05-01] MEDS: LEVOTHYROXINE 137 MCG PO SCH (19:22)
[2022-05-02] MEDS: traMADol 50 MG Tab PO PRN (07:56)
[2022-05-02] MEDS: Acetaminophen 500 MG Tab PO SCH ×3 (07:57→19:19)
[2022-05-02] MEDS: Cyanocobalamin (Vitamin B12) 1,000 MCG Tab PO SCH (07:58)
[2022-05-02] MEDS: guaiFENesin 600 MG Tab.ER PO SCH ×2 (07:58→19:19)
[2022-05-02] MEDS: Calcium Carbonate 750 MG Tab.Chew PO SCH (07:58)
[2022-05-02] MEDS: Citalopram 20 MG Tab PO SCH (07:59)
[2022-05-02] MEDS: Potassium Chloride 20 MEQ Tab.ER PO SCH ×2 (07:59→17:06)
[2022-05-02] MEDS: Polyethylene Glycol 3350 Powder 510 GM Bot PO SCH (07:59)
[2022-05-02] MEDS: Albuterol/Ipratropium 3.0-0.5 MG/3 ML Neb Soln NEB SCH ×2 (07:59→19:18)
[2022-05-02] MEDS: Furosemide 20 MG Tab PO SCH (08:00)
[2022-05-02] MEDS: BUPROPION 300 MG PO SCH (19:19)
[2022-05-02] MEDS: LEVOTHYROXINE 137 MCG PO SCH (19:19)
[2022-05-02] MEDS: Menthol 10%/Methyl Salicylate 15% 85 GM Tube TOP PRN (19:21)
[2022-05-03] MEDS: Albuterol/Ipratropium 3.0-0.5 MG/3 ML Neb Soln NEB SCH ×2 (07:18→19:27)
[2022-05-03] MEDS: guaiFENesin 600 MG Tab.ER PO SCH ×2 (07:19→19:29)
[2022-05-03] MEDS: Calcium Carbonate 750 MG Tab.Chew PO SCH (07:19)
[2022-05-03] MEDS: traMADol 50 MG Tab PO PRN (07:20)
[2022-05-03] MEDS: Cyanocobalamin (Vitamin B12) 1,000 MCG Tab PO SCH (07:21)
[2022-05-03] MEDS: Acetaminophen 500 MG Tab PO SCH ×3 (07:21→19:30)
[2022-05-03] MEDS: Citalopram 20 MG Tab PO SCH (07:21)
[2022-05-03] MEDS: Potassium Chloride 20 MEQ Tab.ER PO SCH ×2 (07:21→17:18)
[2022-05-03] MEDS: Polyethylene Glycol 3350 Powder 510 GM Bot PO SCH (07:22)
[2022-05-03] MEDS: Furosemide 20 MG Tab PO SCH (07:22)
[2022-05-03] MEDS: LEVOTHYROXINE 137 MCG PO SCH (19:29)
[2022-05-03] MEDS: BUPROPION 300 MG PO SCH (19:29)
[2022-05-04] MEDS: Polyethylene Glycol 3350 Powder 510 GM Bot PO SCH (07:33)
[2022-05-04] MEDS: Calcium Carbonate 750 MG Tab.Chew PO SCH (07:34)
[2022-05-04] MEDS: Acetaminophen 500 MG Tab PO SCH ×3 (07:34→19:34)
[2022-05-04] MEDS: traMADol 50 MG Tab PO PRN (07:35)
[2022-05-04] MEDS: guaiFENesin 600 MG Tab.ER PO SCH ×2 (07:35→19:33)
[2022-05-04] MEDS: Potassium Chloride 20 MEQ Tab.ER PO SCH ×2 (07:36→17:08)
[2022-05-04] MEDS: Furosemide 20 MG Tab PO SCH (07:36)
[2022-05-04] MEDS: Citalopram 20 MG Tab PO SCH (07:36)
[2022-05-04] MEDS: Albuterol/Ipratropium 3.0-0.5 MG/3 ML Neb Soln NEB SCH ×2 (07:36→19:31)
[2022-05-04] MEDS: Cyanocobalamin (Vitamin B12) 1,000 MCG Tab PO SCH (07:37)
[2022-05-04] MEDS: LEVOTHYROXINE 137 MCG PO SCH (19:33)
[2022-05-04] MEDS: BUPROPION 300 MG PO SCH (19:34)
[2022-05-05] MEDS: Calcium Carbonate 750 MG Tab.Chew PO SCH (07:37)
[2022-05-05] MEDS: guaiFENesin 600 MG Tab.ER PO SCH ×2 (07:38→19:26)
[2022-05-05] MEDS: Cyanocobalamin (Vitamin B12) 1,000 MCG Tab PO SCH (07:38)
[2022-05-05] MEDS: Polyethylene Glycol 3350 Powder 510 GM Bot PO SCH (07:38)
[2022-05-05] MEDS: traMADol 50 MG Tab PO PRN (07:39)
[2022-05-05] MEDS: Acetaminophen 500 MG Tab PO SCH ×3 (07:39→19:26)
[2022-05-05] MEDS: Furosemide 20 MG Tab PO SCH (07:40)
[2022-05-05] MEDS: Potassium Chloride 20 MEQ Tab.ER PO SCH ×2 (07:40→17:13)
[2022-05-05] MEDS: Citalopram 20 MG Tab PO SCH (07:40)
[2022-05-05] MEDS: Albuterol/Ipratropium 3.0-0.5 MG/3 ML Neb Soln NEB SCH ×2 (07:40→19:22)
[2022-05-05] MEDS: LEVOTHYROXINE 137 MCG PO SCH (19:25)
[2022-05-05] MEDS: BUPROPION 300 MG PO SCH (19:26)
[2022-05-06] MEDS: Albuterol/Ipratropium 3.0-0.5 MG/3 ML Neb Soln NEB SCH ×2 (07:42→19:37)
[2022-05-06] MEDS: traMADol 50 MG Tab PO PRN (07:44)
[2022-05-06] MEDS: Acetaminophen 500 MG Tab PO SCH ×3 (07:46→19:38)
[2022-05-06] MEDS: Polyethylene Glycol 3350 Powder 510 GM Bot PO SCH (07:47)
[2022-05-06] MEDS: Calcium Carbonate 750 MG Tab.Chew PO SCH (07:47)
[2022-05-06] MEDS: guaiFENesin 600 MG Tab.ER PO SCH ×2 (07:47→19:37)
[2022-05-06] MEDS: Citalopram 20 MG Tab PO SCH (07:48)
[2022-05-06] MEDS: Furosemide 20 MG Tab PO SCH (07:48)
[2022-05-06] MEDS: Potassium Chloride 20 MEQ Tab.ER PO SCH ×2 (07:48→17:04)
[2022-05-06] MEDS: Cyanocobalamin (Vitamin B12) 1,000 MCG Tab PO SCH (07:49)
[2022-05-06] MEDS: BUPROPION 300 MG PO SCH (19:37)
[2022-05-06] MEDS: LEVOTHYROXINE 137 MCG PO SCH (19:37)
[2022-05-06] MEDS: Menthol 10%/Methyl Salicylate 15% 85 GM Tube TOP PRN (19:38)
[2022-05-07] MEDS: Polyethylene Glycol 3350 Powder 510 GM Bot PO SCH (07:54)
[2022-05-07] MEDS: traMADol 50 MG Tab PO PRN (07:55)
[2022-05-07] MEDS: Acetaminophen 500 MG Tab PO SCH ×3 (07:56→19:31)
[2022-05-07] MEDS: guaiFENesin 600 MG Tab.ER PO SCH ×2 (07:57→19:31)
[2022-05-07] MEDS: Albuterol/Ipratropium 3.0-0.5 MG/3 ML Neb Soln NEB SCH ×2 (07:57→19:30)
[2022-05-07] MEDS: Furosemide 20 MG Tab PO SCH (07:58)
[2022-05-07] MEDS: Potassium Chloride 20 MEQ Tab.ER PO SCH ×2 (07:58→17:15)
[2022-05-07] MEDS: Citalopram 20 MG Tab PO SCH (07:58)
[2022-05-07] MEDS: Cyanocobalamin (Vitamin B12) 1,000 MCG Tab PO SCH (07:59)
[2022-05-07] MEDS: Calcium Carbonate 750 MG Tab.Chew PO SCH (07:59)
[2022-05-07] MEDS: LEVOTHYROXINE 137 MCG PO SCH (19:30)
[2022-05-07] MEDS: BUPROPION 300 MG PO SCH (19:30)
[2022-05-07] MEDS: Menthol 10%/Methyl Salicylate 15% 85 GM Tube TOP PRN (19:31)
[2022-05-08] MEDS: Albuterol/Ipratropium 3.0-0.5 MG/3 ML Neb Soln NEB SCH ×2 (07:24→19:43)
[2022-05-08] MEDS: Cyanocobalamin (Vitamin B12) 1,000 MCG Tab PO SCH (07:25)
[2022-05-08] MEDS: Calcium Carbonate 750 MG Tab.Chew PO SCH (07:25)
[2022-05-08] MEDS: guaiFENesin 600 MG Tab.ER PO SCH ×2 (07:25→19:44)
[2022-05-08] MEDS: Acetaminophen 500 MG Tab PO SCH ×3 (07:26→19:44)
[2022-05-08] MEDS: traMADol 50 MG Tab PO PRN (07:26)
[2022-05-08] MEDS: Polyethylene Glycol 3350 Powder 510 GM Bot PO SCH (07:27)
[2022-05-08] MEDS: Citalopram 20 MG Tab PO SCH (07:29)
[2022-05-08] MEDS: Potassium Chloride 20 MEQ Tab.ER PO SCH ×2 (07:29→17:00)
[2022-05-08] MEDS: Furosemide 20 MG Tab PO SCH (07:30)
[2022-05-08] MEDS: BUPROPION 300 MG PO SCH (19:44)
[2022-05-08] MEDS: LEVOTHYROXINE 137 MCG PO SCH (19:44)
[2022-05-08] MEDS: Menthol 10%/Methyl Salicylate 15% 85 GM Tube TOP PRN (19:45)
[2022-05-09] MEDS: Furosemide 20 MG Tab PO SCH (08:40)
[2022-05-09] MEDS: Potassium Chloride 20 MEQ Tab.ER PO SCH ×2 (08:40→17:47)
[2022-05-09] MEDS: Citalopram 20 MG Tab PO SCH (08:40)
[2022-05-09] MEDS: Polyethylene Glycol 3350 Powder 510 GM Bot PO SCH (08:41)
[2022-05-09] MEDS: Albuterol/Ipratropium 3.0-0.5 MG/3 ML Neb Soln NEB SCH ×2 (08:41→19:33)
[2022-05-09] MEDS: guaiFENesin 600 MG Tab.ER PO SCH ×2 (08:42→19:35)
[2022-05-09] MEDS: Acetaminophen 500 MG Tab PO SCH ×3 (08:43→19:37)
[2022-05-09] MEDS: Calcium Carbonate 750 MG Tab.Chew PO SCH (08:43)
[2022-05-09] MEDS: Cyanocobalamin (Vitamin B12) 1,000 MCG Tab PO SCH (08:44)
[2022-05-09] MEDS: traMADol 50 MG Tab PO PRN (08:45)
[2022-05-09] MEDS: Menthol 10%/Methyl Salicylate 15% 85 GM Tube TOP PRN (12:52)
[2022-05-09] MEDS: LEVOTHYROXINE 137 MCG PO SCH (19:35)
[2022-05-09] MEDS: BUPROPION 300 MG PO SCH (19:36)
[2022-05-10] MEDS: Furosemide 20 MG Tab PO SCH (07:56)
[2022-05-10] MEDS: Polyethylene Glycol 3350 Powder 510 GM Bot PO SCH (07:56)
[2022-05-10] MEDS: Citalopram 20 MG Tab PO SCH (07:56)
[2022-05-10] MEDS: Potassium Chloride 20 MEQ Tab.ER PO SCH ×2 (07:56→17:10)
[2022-05-10] MEDS: Albuterol/Ipratropium 3.0-0.5 MG/3 ML Neb Soln NEB SCH ×2 (07:56→19:30)
[2022-05-10] MEDS: Calcium Carbonate 750 MG Tab.Chew PO SCH (07:57)
[2022-05-10] MEDS: guaiFENesin 600 MG Tab.ER PO SCH ×2 (07:57→19:29)
[2022-05-10] MEDS: Acetaminophen 500 MG Tab PO SCH ×3 (07:58→19:29)
[2022-05-10] MEDS: Cyanocobalamin (Vitamin B12) 1,000 MCG Tab PO SCH (07:58)
[2022-05-10] MEDS: Nitrofurantoin Monohydrate/Macrocrystalline 100 MG Cap PO SCH ×2 (10:12→17:11)
[2022-05-10] MEDS: BUPROPION 300 MG PO SCH (19:28)
[2022-05-10] MEDS: LEVOTHYROXINE 137 MCG PO SCH (19:28)
[2022-05-10] MEDS: Albuterol/Ipratropium 3.0-0.5 MG/3 ML Neb Soln NEB PRN (19:28)
[2022-05-11] MEDS: Citalopram 20 MG Tab PO SCH (08:01)
[2022-05-11] MEDS: Albuterol/Ipratropium 3.0-0.5 MG/3 ML Neb Soln NEB SCH ×2 (08:02→19:12)
[2022-05-11] MEDS: Potassium Chloride 20 MEQ Tab.ER PO SCH ×2 (08:02→17:41)
[2022-05-11] MEDS: Furosemide 20 MG Tab PO SCH (08:03)
[2022-05-11] MEDS: Nitrofurantoin Monohydrate/Macrocrystalline 100 MG Cap PO SCH ×2 (08:03→17:41)
[2022-05-11] MEDS: Polyethylene Glycol 3350 Powder 510 GM Bot PO SCH (08:04)
[2022-05-11] MEDS: guaiFENesin 600 MG Tab.ER PO SCH ×2 (08:04→19:13)
[2022-05-11] MEDS: Calcium Carbonate 750 MG Tab.Chew PO SCH (08:05)
[2022-05-11] MEDS: Acetaminophen 500 MG Tab PO SCH ×3 (08:05→19:13)
[2022-05-11] MEDS: Cyanocobalamin (Vitamin B12) 1,000 MCG Tab PO SCH (08:06)
[2022-05-11] MEDS: LEVOTHYROXINE 137 MCG PO SCH (19:12)
[2022-05-11] MEDS: BUPROPION 300 MG PO SCH (19:12)
[2022-05-12] MEDS: Albuterol/Ipratropium 3.0-0.5 MG/3 ML Neb Soln NEB SCH ×2 (07:24→19:17)
[2022-05-12] MEDS: Citalopram 20 MG Tab PO SCH (07:24)
[2022-05-12] MEDS: Nitrofurantoin Monohydrate/Macrocrystalline 100 MG Cap PO SCH ×2 (07:24→17:08)
[2022-05-12] MEDS: Furosemide 20 MG Tab PO SCH (07:25)
[2022-05-12] MEDS: Potassium Chloride 20 MEQ Tab.ER PO SCH ×2 (07:25→17:08)
[2022-05-12] MEDS: Calcium Carbonate 750 MG Tab.Chew PO SCH (07:26)
[2022-05-12] MEDS: guaiFENesin 600 MG Tab.ER PO SCH ×2 (07:26→19:17)
[2022-05-12] MEDS: Polyethylene Glycol 3350 Powder 510 GM Bot PO SCH (07:26)
[2022-05-12] MEDS: Cyanocobalamin (Vitamin B12) 1,000 MCG Tab PO SCH (07:27)
[2022-05-12] MEDS: Acetaminophen 500 MG Tab PO SCH ×3 (07:27→19:17)
[2022-05-12] MEDS: Menthol 10%/Methyl Salicylate 15% 85 GM Tube TOP PRN (11:43)
[2022-05-12] MEDS: BUPROPION 300 MG PO SCH (19:18)
[2022-05-12] MEDS: LEVOTHYROXINE 137 MCG PO SCH (19:18)
[2022-05-13] MEDS: Citalopram 20 MG Tab PO SCH (08:00)
[2022-05-13] MEDS: Furosemide 20 MG Tab PO SCH (08:00)
[2022-05-13] MEDS: Albuterol/Ipratropium 3.0-0.5 MG/3 ML Neb Soln NEB SCH ×2 (08:00→19:46)
[2022-05-13] MEDS: guaiFENesin 600 MG Tab.ER PO SCH ×2 (08:00→19:48)
[2022-05-13] MEDS: Acetaminophen 500 MG Tab PO SCH ×3 (08:00→19:49)
[2022-05-13] MEDS: Calcium Carbonate 750 MG Tab.Chew PO SCH (08:00)
[2022-05-13] MEDS: Nitrofurantoin Monohydrate/Macrocrystalline 100 MG Cap PO SCH (08:00)
[2022-05-13] MEDS: Cyanocobalamin (Vitamin B12) 1,000 MCG Tab PO SCH (08:00)
[2022-05-13] MEDS: Potassium Chloride 20 MEQ Tab.ER PO SCH ×2 (08:00→17:39)
[2022-05-13] MEDS: Polyethylene Glycol 3350 Powder 510 GM Bot PO SCH (08:00)
[2022-05-13] MEDS ORDERED: traMADol 50 MG Tab PO PRN (16:00)
[2022-05-13] MEDS: Sulfamethoxazole/Trimethoprim 800-160 MG Tab PO SCH (17:40)
[2022-05-13] MEDS: LEVOTHYROXINE 137 MCG PO SCH (19:48)
[2022-05-13] MEDS: BUPROPION 300 MG PO SCH (19:49)
[2022-05-14] MEDS: Menthol 10%/Methyl Salicylate 15% 85 GM Tube TOP PRN (08:35)
[2022-05-14] MEDS: Sulfamethoxazole/Trimethoprim 800-160 MG Tab PO SCH ×2 (08:36→18:01)
[2022-05-14] MEDS: Furosemide 20 MG Tab PO SCH ×2 (08:36→12:49)
[2022-05-14] MEDS: Citalopram 20 MG Tab PO SCH (08:36)
[2022-05-14] MEDS: Albuterol/Ipratropium 3.0-0.5 MG/3 ML Neb Soln NEB SCH ×2 (08:37→19:50)
[2022-05-14] MEDS: Potassium Chloride 20 MEQ Tab.ER PO SCH ×2 (08:37→18:00)
[2022-05-14] MEDS: Polyethylene Glycol 3350 Powder 510 GM Bot PO SCH (08:37)
[2022-05-14] MEDS: guaiFENesin 600 MG Tab.ER PO SCH ×2 (08:38→19:52)
[2022-05-14] MEDS: Calcium Carbonate 750 MG Tab.Chew PO SCH (08:38)
[2022-05-14] MEDS: Acetaminophen 500 MG Tab PO SCH ×3 (08:38→19:52)
[2022-05-14] MEDS: Cyanocobalamin (Vitamin B12) 1,000 MCG Tab PO SCH (08:39)
[2022-05-14] MEDS: traMADol 50 MG Tab PO SCH (08:40)
[2022-05-14] MEDS: BUPROPION 300 MG PO SCH (19:52)
[2022-05-14] MEDS: LEVOTHYROXINE 137 MCG PO SCH (19:52)
[2022-05-15] MEDS: Furosemide 20 MG Tab PO SCH ×2 (07:14→12:54)
[2022-05-15] MEDS: Potassium Chloride 20 MEQ Tab.ER PO SCH ×2 (07:14→17:32)
[2022-05-15] MEDS: Sulfamethoxazole/Trimethoprim 800-160 MG Tab PO SCH ×2 (07:15→17:33)
[2022-05-15] MEDS: Citalopram 20 MG Tab PO SCH (07:15)
[2022-05-15] MEDS: Calcium Carbonate 750 MG Tab.Chew PO SCH (07:16)
[2022-05-15] MEDS: guaiFENesin 600 MG Tab.ER PO SCH ×2 (07:16→19:46)
[2022-05-15] MEDS: Acetaminophen 500 MG Tab PO SCH ×3 (07:17→19:47)
[2022-05-15] MEDS: Cyanocobalamin (Vitamin B12) 1,000 MCG Tab PO SCH (07:18)
[2022-05-15] MEDS: Polyethylene Glycol 3350 Powder 510 GM Bot PO SCH (07:18)
[2022-05-15] MEDS: traMADol 50 MG Tab PO SCH (07:19)
[2022-05-15] MEDS: Albuterol/Ipratropium 3.0-0.5 MG/3 ML Neb Soln NEB SCH ×2 (07:20→19:45)
[2022-05-15] MEDS: Menthol 10%/Methyl Salicylate 15% 85 GM Tube TOP PRN (09:22)
[2022-05-15] MEDS: LEVOTHYROXINE 137 MCG PO SCH (19:46)
[2022-05-15] MEDS: BUPROPION 300 MG PO SCH (19:46)
[2022-05-16] MEDS: Albuterol/Ipratropium 3.0-0.5 MG/3 ML Neb Soln NEB SCH ×2 (08:07→19:33)
[2022-05-16] MEDS: Potassium Chloride 20 MEQ Tab.ER PO SCH ×2 (08:08→17:07)
[2022-05-16] MEDS: Citalopram 20 MG Tab PO SCH (08:08)
[2022-05-16] MEDS: guaiFENesin 600 MG Tab.ER PO SCH ×2 (08:09→19:35)
[2022-05-16] MEDS: Polyethylene Glycol 3350 Powder 510 GM Bot PO SCH (08:09)
[2022-05-16] MEDS: Sulfamethoxazole/Trimethoprim 800-160 MG Tab PO SCH ×2 (08:09→17:07)
[2022-05-16] MEDS: Furosemide 20 MG Tab PO SCH ×2 (08:09→11:46)
[2022-05-16] MEDS: Acetaminophen 500 MG Tab PO SCH ×3 (08:10→19:35)
[2022-05-16] MEDS: Calcium Carbonate 750 MG Tab.Chew PO SCH (08:10)
[2022-05-16] MEDS: traMADol 50 MG Tab PO SCH (08:10)
[2022-05-16] MEDS: Cyanocobalamin (Vitamin B12) 1,000 MCG Tab PO SCH (08:12)
[2022-05-16] MEDS: BUPROPION 300 MG PO SCH (19:34)
[2022-05-16] MEDS: LEVOTHYROXINE 137 MCG PO SCH (19:34)
[2022-05-16] MEDS: Menthol 10%/Methyl Salicylate 15% 85 GM Tube TOP PRN (19:36)
[2022-05-17] MEDS: Citalopram 20 MG Tab PO SCH (08:36)
[2022-05-17] MEDS: Potassium Chloride 20 MEQ Tab.ER PO SCH ×2 (08:36→17:42)
[2022-05-17] MEDS: Sulfamethoxazole/Trimethoprim 800-160 MG Tab PO SCH ×2 (08:36→17:43)
[2022-05-17] MEDS: Furosemide 20 MG Tab PO SCH ×2 (08:36→12:12)
[2022-05-17] MEDS: Albuterol/Ipratropium 3.0-0.5 MG/3 ML Neb Soln NEB SCH ×2 (08:37→19:18)
[2022-05-17] MEDS: traMADol 50 MG Tab PO SCH (08:38)
[2022-05-17] MEDS: Polyethylene Glycol 3350 Powder 510 GM Bot PO SCH (08:38)
[2022-05-17] MEDS: Acetaminophen 500 MG Tab PO SCH ×3 (08:39→19:19)
[2022-05-17] MEDS: Calcium Carbonate 750 MG Tab.Chew PO SCH (08:40)
[2022-05-17] MEDS: Cyanocobalamin (Vitamin B12) 1,000 MCG Tab PO SCH (08:40)
[2022-05-17] MEDS: guaiFENesin 600 MG Tab.ER PO SCH ×2 (08:41→19:19)
[2022-05-17] MEDS: Menthol 10%/Methyl Salicylate 15% 85 GM Tube TOP PRN ×2 (09:21→19:20)
[2022-05-17] MEDS: BUPROPION 300 MG PO SCH (19:18)
[2022-05-17] MEDS: LEVOTHYROXINE 137 MCG PO SCH (19:18)
[2022-05-18] MEDS: Sulfamethoxazole/Trimethoprim 800-160 MG Tab PO SCH (07:57)
[2022-05-18] MEDS: Albuterol/Ipratropium 3.0-0.5 MG/3 ML Neb Soln NEB SCH ×2 (07:57→19:19)
[2022-05-18] MEDS: Furosemide 20 MG Tab PO SCH ×2 (07:58→11:09)
[2022-05-18] MEDS: Polyethylene Glycol 3350 Powder 510 GM Bot PO SCH (07:58)
[2022-05-18] MEDS: Potassium Chloride 20 MEQ Tab.ER PO SCH ×2 (07:58→17:07)
[2022-05-18] MEDS: Citalopram 20 MG Tab PO SCH (07:58)
[2022-05-18] MEDS: Calcium Carbonate 750 MG Tab.Chew PO SCH (07:58)
[2022-05-18] MEDS: Acetaminophen 500 MG Tab PO SCH ×3 (07:59→19:20)
[2022-05-18] MEDS: guaiFENesin 600 MG Tab.ER PO SCH ×2 (07:59→19:20)
[2022-05-18] MEDS: Cyanocobalamin (Vitamin B12) 1,000 MCG Tab PO SCH (07:59)
[2022-05-18] MEDS: traMADol 50 MG Tab PO SCH (08:00)
[2022-05-18] MEDS: BUPROPION 300 MG PO SCH (19:20)
[2022-05-18] MEDS: LEVOTHYROXINE 137 MCG PO SCH (19:20)
[2022-05-18] MEDS: Menthol 10%/Methyl Salicylate 15% 85 GM Tube TOP PRN (19:21)
[2022-05-19] MEDS: Furosemide 20 MG Tab PO SCH ×2 (07:16→11:45)
[2022-05-19] MEDS: Albuterol/Ipratropium 3.0-0.5 MG/3 ML Neb Soln NEB SCH ×2 (07:16→19:17)
[2022-05-19] MEDS: Polyethylene Glycol 3350 Powder 510 GM Bot PO SCH (07:17)
[2022-05-19] MEDS: Potassium Chloride 20 MEQ Tab.ER PO SCH ×2 (07:17→17:03)
[2022-05-19] MEDS: Citalopram 20 MG Tab PO SCH (07:17)
[2022-05-19] MEDS: Calcium Carbonate 750 MG Tab.Chew PO SCH (07:17)
[2022-05-19] MEDS: guaiFENesin 600 MG Tab.ER PO SCH ×2 (07:17→19:17)
[2022-05-19] MEDS: Acetaminophen 500 MG Tab PO SCH ×3 (07:18→19:18)
[2022-05-19] MEDS: Cyanocobalamin (Vitamin B12) 1,000 MCG Tab PO SCH (07:18)
[2022-05-19] MEDS: traMADol 50 MG Tab PO SCH (07:19)
[2022-05-19] MEDS: LEVOTHYROXINE 137 MCG PO SCH (19:17)
[2022-05-19] MEDS: BUPROPION 300 MG PO SCH (19:17)
[2022-05-19] MEDS: Menthol 10%/Methyl Salicylate 15% 85 GM Tube TOP PRN (19:18)
[2022-05-20] MEDS: Albuterol/Ipratropium 3.0-0.5 MG/3 ML Neb Soln NEB SCH ×2 (08:03→19:06)
[2022-05-20] MEDS: Citalopram 20 MG Tab PO SCH (08:03)
[2022-05-20] MEDS: Potassium Chloride 20 MEQ Tab.ER PO SCH ×2 (08:03→17:27)
[2022-05-20] MEDS: Polyethylene Glycol 3350 Powder 510 GM Bot PO SCH (08:04)
[2022-05-20] MEDS: Furosemide 20 MG Tab PO SCH ×2 (08:04→11:32)
[2022-05-20] MEDS: guaiFENesin 600 MG Tab.ER PO SCH ×2 (08:04→19:05)
[2022-05-20] MEDS: Calcium Carbonate 750 MG Tab.Chew PO SCH (08:05)
[2022-05-20] MEDS: Acetaminophen 500 MG Tab PO SCH ×3 (08:05→19:06)
[2022-05-20] MEDS: Cyanocobalamin (Vitamin B12) 1,000 MCG Tab PO SCH (08:06)
[2022-05-20] MEDS: traMADol 50 MG Tab PO SCH (08:06)
[2022-05-20] MEDS: BUPROPION 300 MG PO SCH (19:05)
[2022-05-20] MEDS: LEVOTHYROXINE 137 MCG PO SCH (19:06)
[2022-05-21] MEDS: Albuterol/Ipratropium 3.0-0.5 MG/3 ML Neb Soln NEB SCH ×2 (07:37→19:25)
[2022-05-21] MEDS: Potassium Chloride 20 MEQ Tab.ER PO SCH ×2 (07:38→17:28)
[2022-05-21] MEDS: Furosemide 20 MG Tab PO SCH (07:38)
[2022-05-21] MEDS: Citalopram 20 MG Tab PO SCH (07:38)
[2022-05-21] MEDS: Polyethylene Glycol 3350 Powder 510 GM Bot PO SCH (07:38)
[2022-05-21] MEDS: Calcium Carbonate 750 MG Tab.Chew PO SCH (07:39)
[2022-05-21] MEDS: guaiFENesin 600 MG Tab.ER PO SCH ×2 (07:39→19:26)
[2022-05-21] MEDS: Acetaminophen 500 MG Tab PO SCH ×3 (07:39→19:26)
[2022-05-21] MEDS: traMADol 50 MG Tab PO SCH (07:40)
[2022-05-21] MEDS: Cyanocobalamin (Vitamin B12) 1,000 MCG Tab PO SCH (07:41)
[2022-05-21 10:56] VITALS: BP 96/50; PULSE 66
[2022-05-21] MEDS: LEVOTHYROXINE 137 MCG PO SCH (19:25)
[2022-05-21] MEDS: BUPROPION 300 MG PO SCH (19:25)
[2022-05-21] MEDS: Menthol 10%/Methyl Salicylate 15% 85 GM Tube TOP PRN (19:27)
[2022-05-22] MEDS: traMADol 50 MG Tab PO SCH (07:17)
[2022-05-22] MEDS: Acetaminophen 500 MG Tab PO SCH ×3 (07:18→19:19)
[2022-05-22] MEDS: Calcium Carbonate 750 MG Tab.Chew PO SCH (07:18)
[2022-05-22] MEDS: guaiFENesin 600 MG Tab.ER PO SCH ×2 (07:19→19:19)
[2022-05-22] MEDS: Citalopram 20 MG Tab PO SCH (07:19)
[2022-05-22] MEDS: Polyethylene Glycol 3350 Powder 510 GM Bot PO SCH (07:19)
[2022-05-22] MEDS: Cyanocobalamin (Vitamin B12) 1,000 MCG Tab PO SCH (07:19)
[2022-05-22] MEDS: Albuterol/Ipratropium 3.0-0.5 MG/3 ML Neb Soln NEB SCH ×2 (07:19→19:18)
[2022-05-22] MEDS: Potassium Chloride 20 MEQ Tab.ER PO SCH ×2 (07:20→17:29)
[2022-05-22] MEDS: Furosemide 20 MG Tab PO SCH (07:20)
[2022-05-22] MEDS: BUPROPION 300 MG PO SCH (19:19)
[2022-05-22] MEDS: LEVOTHYROXINE 137 MCG PO SCH (19:19)
[2022-05-22] MEDS: Menthol 10%/Methyl Salicylate 15% 85 GM Tube TOP PRN (19:20)
[2022-05-23] MEDS: guaiFENesin/Dextromethorphan 100-10 MG/5 ML Soln 10 ML Cup PO PRN (03:59)
[2022-05-23] MEDS: Polyethylene Glycol 3350 Powder 510 GM Bot PO SCH (08:05)
[2022-05-23] MEDS: Albuterol/Ipratropium 3.0-0.5 MG/3 ML Neb Soln NEB SCH (08:05)
[2022-05-23] MEDS: Citalopram 20 MG Tab PO SCH (08:06)
[2022-05-23] MEDS: Furosemide 20 MG Tab PO SCH (08:06)
[2022-05-23] MEDS: Calcium Carbonate 750 MG Tab.Chew PO SCH (08:06)
[2022-05-23] MEDS: Potassium Chloride 20 MEQ Tab.ER PO SCH (08:06)
[2022-05-23] MEDS: Cyanocobalamin (Vitamin B12) 1,000 MCG Tab PO SCH (08:07)
[2022-05-23] MEDS: guaiFENesin 600 MG Tab.ER PO SCH (08:07)
[2022-05-23] MEDS: Acetaminophen 500 MG Tab PO SCH ×2 (08:07→11:30)
[2022-05-23] MEDS: traMADol 50 MG Tab PO SCH (08:08)
== END 2022-05-23 13:11 | disposition swing bed (61) | DRG 92 ==
LOC: LL.SWG 15:11
PROVIDERS: ADMIT Nurse Practitioner Family; ATTEND Nurse Practitioner Family
DX: G71.11 Myotonic muscular dystrophy (principal); E87.1 Hypo-osmolality and hyponatremia; R53.1 Weakness; I50.9 Heart failure, unspecified; G89.29 Other chronic pain; Z66 Do not resuscitate; Z51.5 Encounter for palliative care; E78.5 Hyperlipidemia, unspecified; E87.6 Hypokalemia; E83.39 Other disorders of phosphorus metabolism; I44.0 Atrioventricular block, first degree; I45.10 Unspecified right bundle-branch block; I49.3 Ventricular premature depolarization; J43.1 Panlobular emphysema; E03.9 Hypothyroidism, unspecified; F41.8 Other specified anxiety disorders; I95.9 Hypotension, unspecified; G24.01 Drug induced subacute dyskinesia; E88.09 Other disorders of plasma-protein metabolism, not elsewhere classified; D75.89 Other specified diseases of blood and blood-forming organs; M19.90 Unspecified osteoarthritis, unspecified site; E61.1 Iron deficiency; Z79.899 Other long term (current) drug therapy; K59.00 Constipation, unspecified
CPT/HCPCS: 0064A; 36415; 70450; 71046; 72170; 73030-50; 80048; 81001; 81003; 83605; 83880; 85025; 87086; 87088; 87186; 90686; 91301; 94640; 94761; A9270-GY; G0008; J7620-GY

== ENCOUNTER 2023-06-02 17:36 | Inpatient (IN) | payer MEDICAID ==
[2023-06-03] MEDS ORDERED: Aluminum Hydroxide/Magnesium Hydroxide/Simethicone Susp 30 ML Cup PO PRN (08:31)
[2023-06-03] MEDS: Furosemide 40 MG Tab PO SCH (12:11)
[2023-06-03] MEDS: Acetaminophen 500 MG Tab PO SCH (12:12)
[2023-06-03] MEDS: Potassium Chloride 20 MEQ Tab.ER PO SCH (17:09)
[2023-06-03] MEDS: Albuterol/Ipratropium 3.0-0.5 MG/3 ML Neb Soln NEB SCH (19:20)
[2023-06-03] MEDS: BUPROPION 300 MG PO SCH (19:21)
[2023-06-03] MEDS: guaiFENesin 600 MG Tab.ER PO SCH (19:21)
[2023-06-03] MEDS: LORazepam 0.5 MG Tab PO PRN (19:23)
[2023-06-04] MEDS: Citalopram 20 MG Tab PO SCH (08:13)
[2023-06-04] MEDS: Polyethylene Glycol 3350 Powder 510 GM Bot PO SCH (08:14)
[2023-06-04] MEDS: Cyanocobalamin (Vitamin B12) 1,000 MCG Tab PO SCH (08:15)
[2023-06-04] MEDS: Calcium Carbonate 750 MG Tab.Chew PO SCH (08:15)
[2023-06-04] MEDS: Metolazone 2.5 MG Tab PO SCH (08:17)
[2023-06-04] MEDS: traMADol 50 MG Tab PO SCH (08:18)
[2023-06-04] MEDS: Menthol 10%/Methyl Salicylate 15% 85 GM Tube TOP PRN (19:30)
[2023-06-06 08:25] LABS: CALCIUM 9.5 mg/dL (8.5-10.1); CARBON DIOXIDE,CO2 35.7 mmol/L (21.0-32.0); CREATININE 0.74 mg/dL (0.51-1.17); EST CRCL DRUG DOSING (CG) 70.93 mL/min; POTASSIUM,K 3.6 mmol/L (3.5-5.1); TSH ULTRASENSITIVE 11.273 mIU/mL (0.358-3.740)
[2023-06-06 08:38] LABS: ANION GAP 9.9 meq/L (7-15)
[2023-06-06] MEDS: Potassium Chloride 20 MEQ Tab.ER PO SCH (17:21)
[2023-06-07] MEDS: Levothyroxine 150 MCG Tab PO SCH (08:12)
[2023-06-08] MEDS: Furosemide 40 MG Tab PO SCH (13:28)
[2023-06-09] MEDS: traMADol 50 MG Tab PO PRN (00:58)
[2023-06-09] MEDS: Levothyroxine 150 MCG Tab PO SCH (07:55)
[2023-06-13 08:18] LABS: CALCIUM 9.9 mg/dL (8.5-10.1); CARBON DIOXIDE,CO2 37.4 mmol/L (21.0-32.0); CREATININE 0.63 mg/dL (0.51-1.17); EST CRCL DRUG DOSING (CG) 83.31 mL/min; POTASSIUM,K 3.3 mmol/L (3.5-5.1)
[2023-06-13 08:19] LABS: ANION GAP 6.9 meq/L (7-15)
[2023-06-13] MEDS: Potassium Chloride 20 MEQ Tab.ER PO SCH ×2 (11:19→17:00)
[2023-06-13] MEDS: Potassium Chloride 10 MEQ Tab.ER PO SCH (16:59)
[2023-06-14] MEDS: Potassium Chloride 20 MEQ Tab.ER PO SCH (07:29)
[2023-06-14] MEDS: Potassium Chloride 10 MEQ Tab.ER PO SCH (07:29)
[2023-06-16 09:12] LABS: CALCIUM 9.9 mg/dL (8.5-10.1); CARBON DIOXIDE,CO2 32.2 mmol/L (21.0-32.0); CREATININE 0.66 mg/dL (0.51-1.17); EST CRCL DRUG DOSING (CG) 79.53 mL/min
[2023-06-16 09:13] LABS: ANION GAP 9.8 meq/L (7-15)
[2023-06-24 12:04] LABS: ANION GAP 8.8 meq/L (7-15); CALCIUM 9.7 mg/dL (8.5-10.1); CARBON DIOXIDE,CO2 37.9 mmol/L (21.0-32.0); CREATININE 0.63 mg/dL (0.51-1.17); EST CRCL DRUG DOSING (CG) 83.31 mL/min; POTASSIUM,K 3.7 mmol/L (3.5-5.1)
[2023-06-25] MEDS: Furosemide 20 MG Tab PO SCH (13:34)
[2023-06-26] MEDS: Furosemide 40 MG Tab PO SCH (10:25)
[2023-07-01 09:10] LABS: CALCIUM 9.5 mg/dL (8.5-10.1); CARBON DIOXIDE,CO2 33.9 mmol/L (21.0-32.0); CREATININE 0.61 mg/dL (0.51-1.17); EST CRCL DRUG DOSING (CG) 86.04 mL/min; POTASSIUM,K 3.8 mmol/L (3.5-5.1)
[2023-07-01 09:24] LABS: ANION GAP 8.9 meq/L (7-15)
[2023-07-04] MEDS: Nystatin Susp 100,000 Unit/ML 5 ML UD Cup PO SCH (17:21)
[2023-07-08] MEDS: Albuterol/Ipratropium 3.0-0.5 MG/3 ML Neb Soln NEB PRN (19:20)
[2023-07-14] MEDS: traMADol 50 MG Tab PO SCH (19:01)
[2023-07-22] MEDS: Furosemide 20 MG Tab PO ONE (17:30)
[2023-07-23] MEDS: Furosemide 40 MG Tab PO SCH (13:28)
[2023-07-25] MEDS ORDERED: Coal Tar Shampoo 251 ML Bottle TOP PRN (13:45)
[2023-07-26] MEDS: Metolazone 2.5 MG Tab PO SCH (07:41)
[2023-08-07 08:00] LABS: CALCIUM 9.8 mg/dL (8.5-10.1); CARBON DIOXIDE,CO2 36.8 mmol/L (21.0-32.0); CREATININE 0.62 mg/dL (0.51-1.17); EST CRCL DRUG DOSING (CG) 84.66 mL/min; POTASSIUM,K 3.5 mmol/L (3.5-5.1)
[2023-08-07 08:30] LABS: ANION GAP 9.7 meq/L (7-15)
[2023-08-08] MEDS: Nystatin Susp 100,000 Unit/ML 5 ML UD Cup PO SCH (19:28)
[2023-08-21] MEDS: Nystatin Crm 30 GM Tube TOP SCH (17:18)
[2023-09-05 10:35] LABS: APPEARANCE,URINE SLIGHTLY CLOUDY; BILIRUBIN,URINE NEGATIVE (NEGATIVE); COLOR,URINE YELLOW; GLUCOSE,URINE NEGATIVE (NEGATIVE); KETONES,URINE NEGATIVE (NEGATIVE); LEUKOCYTE ESTERASE,URINE NEGATIVE (NEGATIVE); NITRITE,URINE POSITIVE (NEGATIVE); OCCULT BLOOD,URINE NEGATIVE (NEGATIVE); PROTEIN,URINE NEGATIVE (NEGATIVE); UROBILINOGEN,URINE 0.2 E.U./dL (0.2-1.0)
[2023-09-05 10:43] LABS: BACTERIA,URINE MANY /HPF (NONE TO FEW); EPITHELIAL CELLS,URINE FEW /LPF; RBC,URINE 0-5 /HPF; WBC,URINE 0-5 /HPF
[2023-09-05 11:12] LABS: CALCIUM 9.7 mg/dL (8.5-10.1); CREATININE 0.57 mg/dL (0.51-1.17); EST CRCL DRUG DOSING (CG) 92.08 mL/min; POTASSIUM,K 4.6 mmol/L (3.5-5.1)
[2023-09-05 11:15] LABS: ANION GAP 7.6 meq/L (7-15)
[2023-09-05] MEDS: Furosemide 20 MG Tab PO ONE (13:01)
[2023-09-05] MEDS: Sulfamethoxazole/Trimethoprim 800-160 MG Tab PO SCH (17:28)
[2023-09-05] MEDS: Melatonin 3 MG Tab PO SCH (19:18)
[2023-09-10] MEDS: FLU (Flulaval Quad) 2023-24(6MOS UP)/PF 60 MCG/0.5 ML Syringe IM ONE (13:06)
[2023-09-11] MEDS: predniSONE 5 MG Tab PO SCH (08:01)
[2023-09-22] MEDS: traZODone 50 MG Tab PO SCH (19:39)
[2023-09-23] MEDS: LEVOTHYROXINE 200 MCG PO SCH (08:16)
[2023-09-25] MEDS: traZODone 50 MG Tab PO SCH (19:19)
[2023-10-07] MEDS: guaiFENesin/Dextromethorphan 100-10 MG/5 ML Soln 10 ML Cup PO PRN (01:31)
[2023-10-07] MEDS: predniSONE 5 MG Tab PO SCH (07:27)
[2023-10-10 15:34] LABS: BASOPHILS ABSOLUTE AUTO 0.02 K/uL (0.00-0.20); BASOPHILS PERCENT AUTO 0.2 % (0.0-2.0); EOSINOPHILS ABSOLUTE AUTO 0.07 K/uL (0.00-0.50); EOSINOPHILS PERCENT AUTO 0.7 % (0.0-5.0); HEMATOCRIT 42.8 % (34.0-46.0); HEMOGLOBIN 14.4 g/dL (11.7-15.5); LYMPHOCYTES ABSOLUTE AUTO 1.25 K/uL (0.50-3.50); LYMPHOCYTES PERCENT AUTO 12.8 % (10.0-50.0); MEAN CORPUSCULAR HEMOGLOBIN 36.5 pg (28.2-33.3); MEAN CORPUSCULAR HGB CONC 33.6 g/dL (31.7-36.0); MEAN CORPUSCULAR VOLUME 108.6 fL (84.0-98.0); MONOCYTES ABSOLUTE AUTO 0.35 K/uL (0.00-1.00); MONOCYTES PERCENT AUTO 3.6 % (2.0-14.0); NEUTROPHILS ABSOLUTE AUTO 8.05 K/uL (1.40-7.00); NEUTROPHILS PERCENT AUTO 82.7 % (45.0-80.0); PLATELET COUNT,PLT 245 K/uL (150-350); RED BLOOD CELL COUNT 3.94 M/uL (3.77-5.09); RED CELL DISTRIBUTION WIDTH 14.5 % (11.2-14.1); WHITE BLOOD CELL COUNT,WBC 9.7 K/uL (4.0-10.2)
[2023-10-10 15:51] LABS: CALCIUM 9.3 mg/dL (8.5-10.1); CARBON DIOXIDE,CO2 35.9 mmol/L (21.0-32.0); CREATININE 0.62 mg/dL (0.51-1.17); EST CRCL DRUG DOSING (CG) 84.66 mL/min; POTASSIUM,K 3.7 mmol/L (3.5-5.1)
[2023-10-10 15:54] LABS: ANION GAP 7.8 meq/L (7-15)
[2023-11-25] MEDS: Gabapentin 100 MG Cap PO SCH (17:24)
[2023-12-02] MEDS: Gabapentin 100 MG Cap PO SCH (14:16)
[2024-01-01] MEDS: Nystatin Susp 100,000 Unit/ML 5 ML UD Cup PO SCH (17:03)
[2024-01-06 14:51] LABS: BASOPHILS ABSOLUTE AUTO 0.02 K/uL (0.00-0.20); BASOPHILS PERCENT AUTO 0.2 % (0.0-2.0); EOSINOPHILS ABSOLUTE AUTO 0.08 K/uL (0.00-0.50); EOSINOPHILS PERCENT AUTO 0.9 % (0.0-5.0); HEMATOCRIT 41.9 % (34.0-46.0); LYMPHOCYTES ABSOLUTE AUTO 1.19 K/uL (0.50-3.50); LYMPHOCYTES PERCENT AUTO 12.9 % (10.0-50.0); MEAN CORPUSCULAR HEMOGLOBIN 36.7 pg (28.2-33.3); MEAN CORPUSCULAR HGB CONC 33.4 g/dL (31.7-36.0); MONOCYTES ABSOLUTE AUTO 0.31 K/uL (0.00-1.00); MONOCYTES PERCENT AUTO 3.4 % (2.0-14.0); NEUTROPHILS ABSOLUTE AUTO 7.65 K/uL (1.40-7.00); NEUTROPHILS PERCENT AUTO 82.6 % (45.0-80.0); PLATELET COUNT,PLT 223 K/uL (150-350); RED BLOOD CELL COUNT 3.81 M/uL (3.77-5.09); RED CELL DISTRIBUTION WIDTH 14.7 % (11.2-14.1); WHITE BLOOD CELL COUNT,WBC 9.3 K/uL (4.0-10.2)
[2024-01-06 15:18] LABS: CALCIUM 9.9 mg/dL (8.5-10.1); CARBON DIOXIDE,CO2 38.5 mmol/L (21.0-32.0); CREATININE 0.81 mg/dL (0.51-1.17); EST CRCL DRUG DOSING (CG) 63.97 mL/min; POTASSIUM,K 3.2 mmol/L (3.5-5.1)
[2024-01-06 15:19] LABS: ANION GAP 6.7 meq/L (7-15)
[2024-01-07 09:59] LABS: CORONAVIRUS COVID-19 NAA NEGATIVE (NEGATIVE); INFLUENZA A NAA NEGATIVE (NEGATIVE); INFLUENZA B NAA NEGATIVE (NEGATIVE); RESPIRATORY SYNCYTIAL VIR NAA NEGATIVE (NEGATIVE)
[2024-01-08 11:57] LABS: MAGNESIUM 1.8 mg/dL (1.8-2.4); POTASSIUM,K 3.4 mmol/L (3.5-5.1); TSH ULTRASENSITIVE 0.325 mIU/mL (0.358-3.740)
[2024-01-09] MEDS: Metolazone 2.5 MG Tab PO SCH (09:14)
[2024-01-09] MEDS: Furosemide 20 MG Tab PO SCH (09:19)
[2024-01-30] MEDS: Bisacodyl 10 MG Supp RECTAL PRN (14:31)
[2024-02-19 09:07] LABS: BASOPHILS ABSOLUTE AUTO 0.03 K/uL (0.00-0.20); BASOPHILS PERCENT AUTO 0.3 % (0.0-2.0); EOSINOPHILS ABSOLUTE AUTO 0.14 K/uL (0.00-0.50); EOSINOPHILS PERCENT AUTO 1.4 % (0.0-5.0); HEMATOCRIT 44.1 % (34.0-46.0); HEMOGLOBIN 14.6 g/dL (11.7-15.5); LYMPHOCYTES ABSOLUTE AUTO 1.54 K/uL (0.50-3.50); LYMPHOCYTES PERCENT AUTO 15.6 % (10.0-50.0); MEAN CORPUSCULAR HEMOGLOBIN 36.2 pg (28.2-33.3); MEAN CORPUSCULAR HGB CONC 33.1 g/dL (31.7-36.0); MEAN CORPUSCULAR VOLUME 109.4 fL (84.0-98.0); MONOCYTES ABSOLUTE AUTO 0.49 K/uL (0.00-1.00); NEUTROPHILS ABSOLUTE AUTO 7.69 K/uL (1.40-7.00); NEUTROPHILS PERCENT AUTO 77.7 % (45.0-80.0); PLATELET COUNT,PLT 268 K/uL (150-350); RED BLOOD CELL COUNT 4.03 M/uL (3.77-5.09); RED CELL DISTRIBUTION WIDTH 14.4 % (11.2-14.1); WHITE BLOOD CELL COUNT,WBC 9.9 K/uL (4.0-10.2)
[2024-02-19 09:30] LABS: ALBUMIN 3.3 g/dL (3.4-5.0); BILIRUBIN TOTAL 0.5 mg/dL (0.2-1.0); CALCIUM 9.9 mg/dL (8.5-10.1); CARBON DIOXIDE,CO2 35.8 mmol/L (21.0-32.0); CREATININE 0.79 mg/dL (0.51-1.17); EST CRCL DRUG DOSING (CG) 65.59 mL/min; POTASSIUM,K 3.8 mmol/L (3.5-5.1); PROTEIN TOTAL,TP 6.5 g/dL (6.4-8.2)
[2024-02-19 09:59] LABS: APPEARANCE,URINE CLOUDY; BILIRUBIN,URINE NEGATIVE (NEGATIVE); COLOR,URINE YELLOW; GLUCOSE,URINE NEGATIVE (NEGATIVE); KETONES,URINE NEGATIVE (NEGATIVE); LEUKOCYTE ESTERASE,URINE NEGATIVE (NEGATIVE); NITRITE,URINE POSITIVE (NEGATIVE); OCCULT BLOOD,URINE NEGATIVE (NEGATIVE); PROTEIN,URINE NEGATIVE (NEGATIVE); UROBILINOGEN,URINE 0.2 E.U./dL (0.2-1.0)
[2024-02-19 10:32] LABS: BACTERIA,URINE MANY /HPF (NONE TO FEW); EPITHELIAL CELLS,URINE MODERATE /LPF; RBC,URINE 0-5 /HPF
[2024-02-19] MEDS: Sulfamethoxazole/Trimethoprim 800-160 MG Tab PO SCH (17:50)
[2024-02-26 11:28] LABS: APPEARANCE,URINE CLEAR; BILIRUBIN,URINE NEGATIVE (NEGATIVE); COLOR,URINE YELLOW; GLUCOSE,URINE NEGATIVE (NEGATIVE); KETONES,URINE NEGATIVE (NEGATIVE); LEUKOCYTE ESTERASE,URINE NEGATIVE (NEGATIVE); NITRITE,URINE NEGATIVE (NEGATIVE); OCCULT BLOOD,URINE NEGATIVE (NEGATIVE); PROTEIN,URINE NEGATIVE (NEGATIVE); UROBILINOGEN,URINE 0.2 E.U./dL (0.2-1.0)
[2024-02-26] MEDS: buPROPion 150 MG Tab.ER PO SCH (19:43)
[2024-02-27] MEDS: predniSONE 20 MG Tab PO SCH (07:47)
[2024-03-01] MEDS: predniSONE 20 MG Tab PO SCH (07:26)
[2024-03-04] MEDS: PREDNISONE 10MG TABLETS PO SCH (07:34)
[2024-03-11] MEDS: Citalopram 20 MG Tab PO SCH (08:22)
[2024-03-12] MEDS: Citalopram 20 MG Tab PO SCH (07:38)
[2024-03-16] MEDS: DULoxetine 30 MG Cap PO SCH (08:21)
[2024-03-18 13:58] LABS: APPEARANCE,URINE SLIGHTLY CLOUDY; BILIRUBIN,URINE NEGATIVE (NEGATIVE); COLOR,URINE DARK YELLOW; GLUCOSE,URINE NEGATIVE (NEGATIVE); KETONES,URINE NEGATIVE (NEGATIVE); LEUKOCYTE ESTERASE,URINE NEGATIVE (NEGATIVE); NITRITE,URINE NEGATIVE (NEGATIVE); OCCULT BLOOD,URINE NEGATIVE (NEGATIVE); PROTEIN,URINE NEGATIVE (NEGATIVE); UROBILINOGEN,URINE 0.2 E.U./dL (0.2-1.0)
[2024-03-18 14:01] LABS: RBC,URINE 0-5 /HPF; WBC,URINE 0-5 /HPF
[2024-03-18] MEDS ORDERED: Citalopram 20 MG Tab PO SCH (16:00)
[2024-03-19] MEDS: LORazepam 0.5 MG Tab PO PRN (03:14)
[2024-03-19] MEDS: Citalopram 20 MG Tab PO SCH (07:56)
[2024-03-25] MEDS: Citalopram 20 MG Tab PO SCH (07:33)
[2024-03-25] MEDS ORDERED: Citalopram 20 MG Tab PO SCH (08:00)
[2024-03-29] MEDS: DULoxetine 20 MG Cap PO SCH (19:05)
[2024-04-01] MEDS ORDERED: Citalopram 20 MG Tab PO SCH (08:00)
[2024-04-02 10:58] LABS: BASOPHILS ABSOLUTE AUTO 0.03 K/uL (0.00-0.20); BASOPHILS PERCENT AUTO 0.3 % (0.0-2.0); EOSINOPHILS ABSOLUTE AUTO 0.05 K/uL (0.00-0.50); EOSINOPHILS PERCENT AUTO 0.5 % (0.0-5.0); HEMATOCRIT 49.1 % (34.0-46.0); HEMOGLOBIN 15.7 g/dL (11.7-15.5); LYMPHOCYTES ABSOLUTE AUTO 1.54 K/uL (0.50-3.50); LYMPHOCYTES PERCENT AUTO 13.9 % (10.0-50.0); MEAN CORPUSCULAR HEMOGLOBIN 34.7 pg (28.2-33.3); MEAN CORPUSCULAR VOLUME 108.6 fL (84.0-98.0); MONOCYTES ABSOLUTE AUTO 0.81 K/uL (0.00-1.00); MONOCYTES PERCENT AUTO 7.3 % (2.0-14.0); NEUTROPHILS ABSOLUTE AUTO 8.63 K/uL (1.40-7.00); PLATELET COUNT,PLT 270 K/uL (150-350); RED BLOOD CELL COUNT 4.52 M/uL (3.77-5.09); RED CELL DISTRIBUTION WIDTH 14.1 % (11.2-14.1); WHITE BLOOD CELL COUNT,WBC 11.1 K/uL (4.0-10.2)
[2024-04-02 11:13] LABS: ALBUMIN 3.4 g/dL (3.4-5.0); BILIRUBIN TOTAL 0.6 mg/dL (0.2-1.0); CARBON DIOXIDE,CO2 33.2 mmol/L (21.0-32.0); CREATININE 0.67 mg/dL (0.51-1.17); EST CRCL DRUG DOSING (CG) 77.33 mL/min; POTASSIUM,K 4.6 mmol/L (3.5-5.1); PROTEIN TOTAL,TP 6.5 g/dL (6.4-8.2)
[2024-04-02 11:21] LABS: ANION GAP 10.4 meq/L (7-15)
[2024-04-02 14:28] LABS: APPEARANCE,URINE TURBID; BILIRUBIN,URINE NEGATIVE (NEGATIVE); COLOR,URINE LIGHT YELLOW; GLUCOSE,URINE NEGATIVE (NEGATIVE); KETONES,URINE NEGATIVE (NEGATIVE); LEUKOCYTE ESTERASE,URINE TRACE (NEGATIVE); NITRITE,URINE POSITIVE (NEGATIVE); OCCULT BLOOD,URINE NEGATIVE (NEGATIVE); PH,URINE 8.5 (5.0-9.0); PROTEIN,URINE 30 mg/dL (NEGATIVE); UROBILINOGEN,URINE 0.2 E.U./dL (0.2-1.0)
[2024-04-02 14:36] LABS: BACTERIA,URINE MANY /HPF (NONE TO FEW); EPITHELIAL CELLS,URINE MANY /LPF; RBC,URINE NOT SEEN /HPF
[2024-04-02 14:37] LABS: MUCUS,URINE FEW /LPF (NEGATIVE)
[2024-04-02 16:56] LABS: HEMOGLOBIN A1C 6.7 % (4.3-5.7)
[2024-04-02] MEDS: Sulfamethoxazole/Trimethoprim 800-160 MG Tab PO SCH (17:58)
[2024-04-06] MEDS: QUETIAPINE 25 MG PO SCH (19:21)
[2024-04-08] MEDS: Cranberry 500 MG Cap PO SCH (18:03)
[2024-04-09] MEDS: Loperamide 2 MG Tab PO PRN (16:26)
[2024-04-20 14:24] LABS: BILIRUBIN,URINE NEGATIVE (NEGATIVE); COLOR,URINE YELLOW; GLUCOSE,URINE NEGATIVE (NEGATIVE); KETONES,URINE NEGATIVE (NEGATIVE); LEUKOCYTE ESTERASE,URINE TRACE (NEGATIVE); NITRITE,URINE POSITIVE (NEGATIVE); OCCULT BLOOD,URINE TRACE-INTACT (NEGATIVE); PH,URINE 5.5 (5.0-9.0); PROTEIN,URINE NEGATIVE (NEGATIVE); UROBILINOGEN,URINE 0.2 E.U./dL (0.2-1.0)
[2024-04-20 14:33] LABS: APPEARANCE,URINE CLOUDY
[2024-04-20 14:35] LABS: BACTERIA,URINE MANY /HPF (NONE TO FEW); RBC,URINE 0-5 /HPF; WBC,URINE 0-5 /HPF
[2024-04-20] MEDS: Sulfamethoxazole/Trimethoprim 800-160 MG Tab PO SCH (18:04)
[2024-04-21] MEDS: DULoxetine 30 MG Cap PO SCH (07:32)
[2024-04-26] MEDS: Sennosides 8.6 MG Tab PO PRN (14:00)
[2024-05-11] MEDS: Fluconazole 100 MG Tab PO ONE (17:04)
[2024-05-13 13:47] LABS: APPEARANCE,URINE SLIGHTLY CLOUDY; BILIRUBIN,URINE NEGATIVE (NEGATIVE); COLOR,URINE YELLOW; GLUCOSE,URINE NEGATIVE (NEGATIVE); KETONES,URINE NEGATIVE (NEGATIVE); LEUKOCYTE ESTERASE,URINE NEGATIVE (NEGATIVE); NITRITE,URINE NEGATIVE (NEGATIVE); OCCULT BLOOD,URINE NEGATIVE (NEGATIVE); PROTEIN,URINE NEGATIVE (NEGATIVE); UROBILINOGEN,URINE 0.2 E.U./dL (0.2-1.0)
[2024-05-13 13:50] LABS: BASOPHILS ABSOLUTE AUTO 0.03 K/uL (0.00-0.20); BASOPHILS PERCENT AUTO 0.2 % (0.0-2.0); EOSINOPHILS PERCENT AUTO 0.7 % (0.0-5.0); HEMATOCRIT 47.2 % (34.0-46.0); HEMOGLOBIN 14.9 g/dL (11.7-15.5); LYMPHOCYTES ABSOLUTE AUTO 1.28 K/uL (0.50-3.50); LYMPHOCYTES PERCENT AUTO 8.4 % (10.0-50.0); MEAN CORPUSCULAR HEMOGLOBIN 35.1 pg (28.2-33.3); MEAN CORPUSCULAR HGB CONC 31.6 g/dL (31.7-36.0); MEAN CORPUSCULAR VOLUME 111.1 fL (84.0-98.0); MONOCYTES ABSOLUTE AUTO 0.34 K/uL (0.00-1.00); MONOCYTES PERCENT AUTO 2.2 % (2.0-14.0); NEUTROPHILS PERCENT AUTO 88.5 % (45.0-80.0); PLATELET COUNT,PLT 261 K/uL (150-350); RED BLOOD CELL COUNT 4.25 M/uL (3.77-5.09); WHITE BLOOD CELL COUNT,WBC 15.2 K/uL (4.0-10.2)
[2024-05-13 14:15] LABS: BILIRUBIN TOTAL 0.5 mg/dL (0.2-1.0); CARBON DIOXIDE,CO2 39.2 mmol/L (21.0-32.0); CREATININE 0.67 mg/dL (0.51-1.17); EST CRCL DRUG DOSING (CG) 77.33 mL/min; MAGNESIUM 1.7 mg/dL (1.8-2.4); POTASSIUM,K 5.4 mmol/L (3.5-5.1); PROTEIN TOTAL,TP 6.2 g/dL (6.4-8.2)
[2024-05-13 14:16] LABS: ANION GAP 7.2 meq/L (7-15)
[2024-05-14 10:24] LABS: BASOPHILS ABSOLUTE AUTO 0.02 K/uL (0.00-0.20); BASOPHILS PERCENT AUTO 0.2 % (0.0-2.0); EOSINOPHILS ABSOLUTE AUTO 0.09 K/uL (0.00-0.50); EOSINOPHILS PERCENT AUTO 0.8 % (0.0-5.0); HEMATOCRIT 44.3 % (34.0-46.0); HEMOGLOBIN 14.2 g/dL (11.7-15.5); LYMPHOCYTES ABSOLUTE AUTO 1.25 K/uL (0.50-3.50); LYMPHOCYTES PERCENT AUTO 10.8 % (10.0-50.0); MEAN CORPUSCULAR HEMOGLOBIN 35.2 pg (28.2-33.3); MEAN CORPUSCULAR HGB CONC 32.1 g/dL (31.7-36.0); MEAN CORPUSCULAR VOLUME 109.9 fL (84.0-98.0); MONOCYTES ABSOLUTE AUTO 0.78 K/uL (0.00-1.00); MONOCYTES PERCENT AUTO 6.7 % (2.0-14.0); NEUTROPHILS ABSOLUTE AUTO 9.45 K/uL (1.40-7.00); NEUTROPHILS PERCENT AUTO 81.5 % (45.0-80.0); PLATELET COUNT,PLT 239 K/uL (150-350); RED BLOOD CELL COUNT 4.03 M/uL (3.77-5.09); RED CELL DISTRIBUTION WIDTH 14.9 % (11.2-14.1); WHITE BLOOD CELL COUNT,WBC 11.6 K/uL (4.0-10.2)
[2024-05-14 10:38] LABS: ANION GAP 8.6 meq/L (7-15); CALCIUM 9.8 mg/dL (8.5-10.1); CARBON DIOXIDE,CO2 39.1 mmol/L (21.0-32.0); CREATININE 0.69 mg/dL (0.51-1.17); EST CRCL DRUG DOSING (CG) 75.09 mL/min; POTASSIUM,K 3.7 mmol/L (3.5-5.1)
[2024-05-14] MEDS: Fluconazole 100 MG Tab PO ONE (17:03)
[2024-05-16] MEDS: Sodium Chloride 0.9% 500 ML IV SCH (15:20)
[2024-05-16 15:37] LABS: BASOPHILS ABSOLUTE AUTO 0.02 K/uL (0.00-0.20); BASOPHILS PERCENT AUTO 0.2 % (0.0-2.0); EOSINOPHILS ABSOLUTE AUTO 0.07 K/uL (0.00-0.50); EOSINOPHILS PERCENT AUTO 0.5 % (0.0-5.0); HEMATOCRIT 45.5 % (34.0-46.0); HEMOGLOBIN 14.9 g/dL (11.7-15.5); LYMPHOCYTES ABSOLUTE AUTO 0.98 K/uL (0.50-3.50); LYMPHOCYTES PERCENT AUTO 7.7 % (10.0-50.0); MEAN CORPUSCULAR HEMOGLOBIN 35.9 pg (28.2-33.3); MEAN CORPUSCULAR HGB CONC 32.7 g/dL (31.7-36.0); MEAN CORPUSCULAR VOLUME 109.6 fL (84.0-98.0); MONOCYTES ABSOLUTE AUTO 0.45 K/uL (0.00-1.00); MONOCYTES PERCENT AUTO 3.5 % (2.0-14.0); NEUTROPHILS ABSOLUTE AUTO 11.24 K/uL (1.40-7.00); NEUTROPHILS PERCENT AUTO 88.1 % (45.0-80.0); PLATELET COUNT,PLT 243 K/uL (150-350); RED BLOOD CELL COUNT 4.15 M/uL (3.77-5.09); WHITE BLOOD CELL COUNT,WBC 12.8 K/uL (4.0-10.2)
[2024-05-16] MEDS ORDERED: Sodium Chloride 0.9% 10 ML Syringe FLUSH PRN (15:40)
[2024-05-16 15:46] LABS: CALCIUM 10.1 mg/dL (8.5-10.1); CREATININE 0.65 mg/dL (0.51-1.17); EST CRCL DRUG DOSING (CG) 79.71 mL/min
[2024-05-16 16:23] LABS: PH VENOUS,POC 7.37 (7.31-7.41)
[2024-05-16 16:26] LABS: HCO3 VENOUS,POC 44 mmol/L (23-28); O2 SATURATION VENOUS,POC 98 %; PCO2 VENOUS,POC 77 mmHg (41-51); PO2 VENOUS,POC 117 mmHg
[2024-05-16 16:44] LABS: APPEARANCE,URINE SLIGHTLY CLOUDY; BILIRUBIN,URINE NEGATIVE (NEGATIVE); COLOR,URINE YELLOW; GLUCOSE,URINE NEGATIVE (NEGATIVE); KETONES,URINE NEGATIVE (NEGATIVE); LEUKOCYTE ESTERASE,URINE NEGATIVE (NEGATIVE); NITRITE,URINE NEGATIVE (NEGATIVE); OCCULT BLOOD,URINE NEGATIVE (NEGATIVE); PROTEIN,URINE NEGATIVE (NEGATIVE); UROBILINOGEN,URINE 0.2 E.U./dL (0.2-1.0)
[2024-05-16] MEDS: Sodium Chloride 0.9% 10 ML Syringe FLUSH SCH (20:15)
[2024-05-18] MEDS ORDERED: Ondansetron 4 MG Tab.DIS PO PRN (12:54)
[2024-05-18] MEDS ORDERED: Acetaminophen 325 MG Tab PO PRN (13:58)
[2024-05-18] MEDS: Morphine Oral Concentrate 20 MG/ML 30 ML Bottle PO SCH (15:09)
[2024-05-18] MEDS: Morphine Oral Concentrate 20 MG/ML 30 ML Bottle PO PRN (16:10)
[2024-05-19] MEDS: Morphine Oral Concentrate 20 MG/ML 30 ML Bottle PO ONE ×2 (07:10→08:26)
[2024-05-19] MEDS: Hyoscyamine 0.125 MG Tab.SL SL PRN (07:41)
[2024-05-19] MEDS ORDERED: Morphine Oral Concentrate 20 MG/ML 30 ML Bottle PO SCH (08:00)
[2024-05-19] MEDS ORDERED: Morphine Oral Concentrate 20 MG/ML 30 ML Bottle PO PRN (08:18)
[2024-05-19] MEDS: Bisacodyl 10 MG Supp RECTAL SCH (08:29)
[2024-05-19] MEDS ORDERED: Acetaminophen 650 MG Supp RECTAL PRN (10:57)
[2024-05-19] MEDS: LORazepam 0.5 MG Tab PO SCH (11:23)
[2024-05-19 11:52] VITALS: BP 122/58; PULSE 100
[2024-05-19] MEDS ORDERED: LORazepam 0.5 MG Tab PO SCH (12:00)
[2024-05-19] MEDS: Morphine Oral Concentrate 20 MG/ML 30 ML Bottle PO SCH (12:23)
== END 2024-05-20 04:55 | disposition expired | DRG 948 ==
LOC: LL.SWG 06-03 10:27
PROVIDERS: ADMIT Nurse Practitioner Family; ATTEND Nurse Practitioner Family
DX: R53.1 Weakness (principal); N39.0 Urinary tract infection, site not specified; G71.11 Myotonic muscular dystrophy; E03.9 Hypothyroidism, unspecified; E78.00 Pure hypercholesterolemia, unspecified; K21.9 Gastro-esophageal reflux disease without esophagitis; K59.09 Other constipation; Z66 Do not resuscitate; Z51.5 Encounter for palliative care; K27.9 Peptic ulcer, site unspecified, unspecified as acute or chronic, without hemorrhage or perforation; G89.29 Other chronic pain; M54.2 Cervicalgia; M19.90 Unspecified osteoarthritis, unspecified site; I50.9 Heart failure, unspecified; J43.1 Panlobular emphysema; E87.6 Hypokalemia; M54.50 Low back pain, unspecified; J44.9 Chronic obstructive pulmonary disease, unspecified; D51.3 Other dietary vitamin B12 deficiency anemia; F41.8 Other specified anxiety disorders; E66.9 Obesity, unspecified; Z88.0 Allergy status to penicillin; Z88.5 Allergy status to narcotic agent; Z88.8 Allergy status to other drugs, medicaments and biological substances; Z98.49 Cataract extraction status, unspecified eye; Z90.49 Acquired absence of other specified parts of digestive tract; Z86.16 Personal history of COVID-19; Z68.32 Body mass index [BMI] 32.0-32.9, adult; Z79.890 Hormone replacement therapy; Z90.710 Acquired absence of both cervix and uterus; Z79.899 Other long term (current) drug therapy; Z90.721 Acquired absence of ovaries, unilateral; Z98.890 Other specified postprocedural states
CPT/HCPCS: 0241U; 36415; 51701; 71046; 80048; 80053; 81001; 81003; 82746; 82803; 83036; 83605; 83735; 83880; 84132; 84443; 85025; 87086; 87088; 87186; 90686; 94640; 97140-GP; 97162-GP; 97530-GP; A9270-GY; G0008; J3490; J7040; J7512; J7620-GY

== ENCOUNTER → 2023-06-03 10:26 | Inpatient (IN) | payer MEDICAID ==
[2022-05-23] MEDS: Acetaminophen 500 MG Tab PO SCH ×2 (13:50→19:19)
[2022-05-23] MEDS: Potassium Chloride 20 MEQ Tab.ER PO SCH (17:49)
[2022-05-23] MEDS: Albuterol/Ipratropium 3.0-0.5 MG/3 ML Neb Soln NEB SCH (19:18)
[2022-05-23] MEDS: guaiFENesin 600 MG Tab.ER PO SCH (19:19)
[2022-05-23] MEDS: LEVOTHYROXINE 137 MCG PO SCH (19:19)
[2022-05-23] MEDS: BUPROPION 300 MG PO SCH (19:19)
[2022-05-24] MEDS: Albuterol/Ipratropium 3.0-0.5 MG/3 ML Neb Soln NEB SCH ×2 (07:44→19:49)
[2022-05-24] MEDS: Citalopram 20 MG Tab PO SCH (07:44)
[2022-05-24] MEDS: Potassium Chloride 20 MEQ Tab.ER PO SCH ×2 (07:45→17:19)
[2022-05-24] MEDS: Furosemide 20 MG Tab PO SCH (07:45)
[2022-05-24] MEDS: Polyethylene Glycol 3350 Powder 510 GM Bot PO SCH (07:46)
[2022-05-24] MEDS: Calcium Carbonate 750 MG Tab.Chew PO SCH (07:46)
[2022-05-24] MEDS: guaiFENesin 600 MG Tab.ER PO SCH ×2 (07:46→19:51)
[2022-05-24] MEDS: Cyanocobalamin (Vitamin B12) 1,000 MCG Tab PO SCH (07:47)
[2022-05-24] MEDS: Acetaminophen 500 MG Tab PO SCH ×3 (07:47→19:52)
[2022-05-24] MEDS: traMADol 50 MG Tab PO SCH (07:48)
[2022-05-24] MEDS: Menthol 10%/Methyl Salicylate 15% 85 GM Tube TOP PRN (07:49)
[2022-05-24] MEDS: LEVOTHYROXINE 137 MCG PO SCH (19:50)
[2022-05-24] MEDS: BUPROPION 300 MG PO SCH (19:51)
[2022-05-25] MEDS: Polyethylene Glycol 3350 Powder 510 GM Bot PO SCH (07:32)
[2022-05-25] MEDS: Menthol 10%/Methyl Salicylate 15% 85 GM Tube TOP PRN (07:32)
[2022-05-25] MEDS: Furosemide 20 MG Tab PO SCH (07:33)
[2022-05-25] MEDS: Citalopram 20 MG Tab PO SCH (07:33)
[2022-05-25] MEDS: Potassium Chloride 20 MEQ Tab.ER PO SCH ×2 (07:33→17:00)
[2022-05-25] MEDS: Albuterol/Ipratropium 3.0-0.5 MG/3 ML Neb Soln NEB SCH ×2 (07:34→19:31)
[2022-05-25] MEDS: Acetaminophen 500 MG Tab PO SCH ×3 (07:34→19:33)
[2022-05-25] MEDS: Calcium Carbonate 750 MG Tab.Chew PO SCH (07:34)
[2022-05-25] MEDS: guaiFENesin 600 MG Tab.ER PO SCH ×2 (07:34→19:33)
[2022-05-25] MEDS: traMADol 50 MG Tab PO SCH (07:35)
[2022-05-25] MEDS: Cyanocobalamin (Vitamin B12) 1,000 MCG Tab PO SCH (07:35)
[2022-05-25] MEDS: LEVOTHYROXINE 137 MCG PO SCH (19:32)
[2022-05-25] MEDS: BUPROPION 300 MG PO SCH (19:33)
[2022-05-26] MEDS: Albuterol/Ipratropium 3.0-0.5 MG/3 ML Neb Soln NEB SCH ×2 (07:59→19:30)
[2022-05-26] MEDS: Citalopram 20 MG Tab PO SCH (07:59)
[2022-05-26] MEDS: Furosemide 20 MG Tab PO SCH (07:59)
[2022-05-26] MEDS: Potassium Chloride 20 MEQ Tab.ER PO SCH ×2 (07:59→17:36)
[2022-05-26] MEDS: guaiFENesin 600 MG Tab.ER PO SCH ×2 (08:00→19:31)
[2022-05-26] MEDS: Calcium Carbonate 750 MG Tab.Chew PO SCH (08:00)
[2022-05-26] MEDS: Polyethylene Glycol 3350 Powder 510 GM Bot PO SCH (08:00)
[2022-05-26] MEDS: Acetaminophen 500 MG Tab PO SCH ×3 (08:00→19:31)
[2022-05-26] MEDS: Cyanocobalamin (Vitamin B12) 1,000 MCG Tab PO SCH (08:02)
[2022-05-26] MEDS: Menthol 10%/Methyl Salicylate 15% 85 GM Tube TOP PRN (08:03)
[2022-05-26] MEDS: traMADol 50 MG Tab PO SCH (08:04)
[2022-05-26] MEDS: BUPROPION 300 MG PO SCH (19:29)
[2022-05-26] MEDS: LEVOTHYROXINE 137 MCG PO SCH (19:29)
[2022-05-27] MEDS: Polyethylene Glycol 3350 Powder 510 GM Bot PO SCH (08:09)
[2022-05-27] MEDS: Citalopram 20 MG Tab PO SCH (08:09)
[2022-05-27] MEDS: Potassium Chloride 20 MEQ Tab.ER PO SCH ×2 (08:09→17:31)
[2022-05-27] MEDS: guaiFENesin 600 MG Tab.ER PO SCH ×2 (08:09→19:29)
[2022-05-27] MEDS: Furosemide 20 MG Tab PO SCH (08:10)
[2022-05-27] MEDS: Acetaminophen 500 MG Tab PO SCH ×3 (08:11→19:29)
[2022-05-27] MEDS: Calcium Carbonate 750 MG Tab.Chew PO SCH (08:11)
[2022-05-27] MEDS: Albuterol/Ipratropium 3.0-0.5 MG/3 ML Neb Soln NEB PRN (08:11)
[2022-05-27] MEDS: Albuterol/Ipratropium 3.0-0.5 MG/3 ML Neb Soln NEB SCH ×2 (08:11→19:28)
[2022-05-27] MEDS: traMADol 50 MG Tab PO SCH (08:12)
[2022-05-27] MEDS: Cyanocobalamin (Vitamin B12) 1,000 MCG Tab PO SCH (08:13)
[2022-05-27] MEDS: LEVOTHYROXINE 137 MCG PO SCH (19:28)
[2022-05-27] MEDS: BUPROPION 300 MG PO SCH (19:29)
[2022-05-28 07:44] LABS: BASOPHILS ABSOLUTE AUTO 0.01 K/uL (0.00-0.20); BASOPHILS PERCENT AUTO 0.2 % (0.0-2.0); EOSINOPHILS ABSOLUTE AUTO 0.19 K/uL (0.00-0.50); EOSINOPHILS PERCENT AUTO 3.1 % (0.0-5.0); HEMATOCRIT 40.3 % (34.0-46.0); HEMOGLOBIN 13.1 g/dL (11.7-15.5); LYMPHOCYTES ABSOLUTE AUTO 1.52 K/uL (0.50-3.50); LYMPHOCYTES PERCENT AUTO 24.9 % (10.0-50.0); MEAN CORPUSCULAR HEMOGLOBIN 34.5 pg (28.2-33.3); MEAN CORPUSCULAR HGB CONC 32.5 g/dL (31.7-36.0); MEAN CORPUSCULAR VOLUME 106.1 fL (84.0-98.0); MONOCYTES ABSOLUTE AUTO 0.28 K/uL (0.00-1.00); MONOCYTES PERCENT AUTO 4.6 % (2.0-14.0); NEUTROPHILS ABSOLUTE AUTO 4.11 K/uL (1.40-7.00); NEUTROPHILS PERCENT AUTO 67.2 % (45.0-80.0); PLATELET COUNT,PLT 191 K/uL (150-350); WHITE BLOOD CELL COUNT,WBC 6.1 K/uL (4.0-10.2)
[2022-05-28] MEDS: Albuterol/Ipratropium 3.0-0.5 MG/3 ML Neb Soln NEB SCH ×2 (08:08→19:29)
[2022-05-28] MEDS: Potassium Chloride 20 MEQ Tab.ER PO SCH ×2 (08:08→17:27)
[2022-05-28] MEDS: Citalopram 20 MG Tab PO SCH (08:08)
[2022-05-28] MEDS: Furosemide 20 MG Tab PO SCH (08:08)
[2022-05-28] MEDS: guaiFENesin 600 MG Tab.ER PO SCH ×2 (08:09→19:30)
[2022-05-28] MEDS: Polyethylene Glycol 3350 Powder 510 GM Bot PO SCH (08:09)
[2022-05-28 08:15] LABS: ALBUMIN 2.8 g/dL (3.4-5.0); BILIRUBIN TOTAL 0.2 mg/dL (0.2-1.0); CALCIUM 9.4 mg/dL (8.5-10.1); CARBON DIOXIDE,CO2 33.7 mmol/L (21.0-32.0); CREATININE 0.64 mg/dL (0.51-1.17); EST CRCL DRUG DOSING (CG) 86.41 mL/min; POTASSIUM,K 4.6 mmol/L (3.5-5.1); PROTEIN TOTAL,TP 5.8 g/dL (6.4-8.2); TSH ULTRASENSITIVE 0.591 mIU/mL (0.358-3.740)
[2022-05-28] MEDS: Acetaminophen 500 MG Tab PO SCH ×3 (08:15→19:30)
[2022-05-28] MEDS: Calcium Carbonate 750 MG Tab.Chew PO SCH (08:15)
[2022-05-28] MEDS: traMADol 50 MG Tab PO SCH (08:16)
[2022-05-28] MEDS: Cyanocobalamin (Vitamin B12) 1,000 MCG Tab PO SCH (08:17)
[2022-05-28 08:18] LABS: ANION GAP 8.9 meq/L (7-15)
[2022-05-28] MEDS: LEVOTHYROXINE 137 MCG PO SCH (19:29)
[2022-05-28] MEDS: BUPROPION 300 MG PO SCH (19:30)
[2022-05-28] MEDS: Menthol 10%/Methyl Salicylate 15% 85 GM Tube TOP PRN (19:33)
[2022-05-29] MEDS: Citalopram 20 MG Tab PO SCH (07:20)
[2022-05-29] MEDS: Potassium Chloride 20 MEQ Tab.ER PO SCH ×2 (07:20→17:21)
[2022-05-29] MEDS: Albuterol/Ipratropium 3.0-0.5 MG/3 ML Neb Soln NEB SCH ×2 (07:20→19:17)
[2022-05-29] MEDS: Furosemide 20 MG Tab PO SCH (07:21)
[2022-05-29] MEDS: Acetaminophen 500 MG Tab PO SCH ×3 (07:21→19:18)
[2022-05-29] MEDS: Polyethylene Glycol 3350 Powder 510 GM Bot PO SCH (07:21)
[2022-05-29] MEDS: guaiFENesin 600 MG Tab.ER PO SCH ×2 (07:22→19:18)
[2022-05-29] MEDS: Calcium Carbonate 750 MG Tab.Chew PO SCH (07:22)
[2022-05-29] MEDS: traMADol 50 MG Tab PO SCH (07:22)
[2022-05-29] MEDS: Cyanocobalamin (Vitamin B12) 1,000 MCG Tab PO SCH (07:22)
[2022-05-29 10:46] LABS: % TRANSFERRIN SAT 20.7 % (20.0-50.0)
[2022-05-29] MEDS: BUPROPION 300 MG PO SCH (19:17)
[2022-05-29] MEDS: LEVOTHYROXINE 137 MCG PO SCH (19:17)
[2022-05-29] MEDS: Menthol 10%/Methyl Salicylate 15% 85 GM Tube TOP PRN (19:19)
[2022-05-30] MEDS: Polyethylene Glycol 3350 Powder 510 GM Bot PO SCH (07:43)
[2022-05-30] MEDS: Potassium Chloride 20 MEQ Tab.ER PO SCH ×2 (07:44→17:10)
[2022-05-30] MEDS: Citalopram 20 MG Tab PO SCH (07:44)
[2022-05-30] MEDS: Furosemide 20 MG Tab PO SCH (07:44)
[2022-05-30] MEDS: guaiFENesin 600 MG Tab.ER PO SCH ×2 (07:44→19:18)
[2022-05-30] MEDS: Acetaminophen 500 MG Tab PO SCH ×3 (07:45→19:18)
[2022-05-30] MEDS: Calcium Carbonate 750 MG Tab.Chew PO SCH (07:45)
[2022-05-30] MEDS: Albuterol/Ipratropium 3.0-0.5 MG/3 ML Neb Soln NEB SCH ×2 (07:45→19:18)
[2022-05-30] MEDS: traMADol 50 MG Tab PO SCH (07:46)
[2022-05-30] MEDS: Cyanocobalamin (Vitamin B12) 1,000 MCG Tab PO SCH (07:47)
[2022-05-30] MEDS: BUPROPION 300 MG PO SCH (19:18)
[2022-05-30] MEDS: LEVOTHYROXINE 137 MCG PO SCH (19:18)
[2022-05-30] MEDS: Menthol 10%/Methyl Salicylate 15% 85 GM Tube TOP PRN (19:19)
[2022-05-31] MEDS: guaiFENesin/Dextromethorphan 100-10 MG/5 ML Soln 10 ML Cup PO PRN (04:38)
[2022-05-31] MEDS: Potassium Chloride 20 MEQ Tab.ER PO SCH ×2 (07:08→17:13)
[2022-05-31] MEDS: Albuterol/Ipratropium 3.0-0.5 MG/3 ML Neb Soln NEB SCH ×2 (07:08→19:25)
[2022-05-31] MEDS: Citalopram 20 MG Tab PO SCH (07:08)
[2022-05-31] MEDS: guaiFENesin 600 MG Tab.ER PO SCH ×2 (07:09→19:26)
[2022-05-31] MEDS: Cyanocobalamin (Vitamin B12) 1,000 MCG Tab PO SCH (07:09)
[2022-05-31] MEDS: Furosemide 20 MG Tab PO SCH (07:09)
[2022-05-31] MEDS: Polyethylene Glycol 3350 Powder 510 GM Bot PO SCH (07:10)
[2022-05-31] MEDS: traMADol 50 MG Tab PO SCH (07:10)
[2022-05-31] MEDS: Acetaminophen 500 MG Tab PO SCH ×3 (07:10→19:27)
[2022-05-31] MEDS: Calcium Carbonate 750 MG Tab.Chew PO SCH (07:10)
[2022-05-31] MEDS: LEVOTHYROXINE 137 MCG PO SCH (19:26)
[2022-05-31] MEDS: BUPROPION 300 MG PO SCH (19:27)
[2022-06-01] MEDS: guaiFENesin/Dextromethorphan 100-10 MG/5 ML Soln 10 ML Cup PO PRN (03:10)
[2022-06-01] MEDS: Citalopram 20 MG Tab PO SCH (07:52)
[2022-06-01] MEDS: Albuterol/Ipratropium 3.0-0.5 MG/3 ML Neb Soln NEB SCH ×2 (07:52→19:35)
[2022-06-01] MEDS: Potassium Chloride 20 MEQ Tab.ER PO SCH ×2 (07:52→17:13)
[2022-06-01] MEDS: guaiFENesin 600 MG Tab.ER PO SCH ×2 (07:53→19:37)
[2022-06-01] MEDS: Polyethylene Glycol 3350 Powder 510 GM Bot PO SCH (07:53)
[2022-06-01] MEDS: Furosemide 20 MG Tab PO SCH (07:53)
[2022-06-01] MEDS: Acetaminophen 500 MG Tab PO SCH ×3 (07:54→19:37)
[2022-06-01] MEDS: Calcium Carbonate 750 MG Tab.Chew PO SCH (07:54)
[2022-06-01] MEDS: traMADol 50 MG Tab PO SCH (07:55)
[2022-06-01] MEDS: Cyanocobalamin (Vitamin B12) 1,000 MCG Tab PO SCH (07:56)
[2022-06-01] MEDS: LEVOTHYROXINE 137 MCG PO SCH (19:36)
[2022-06-01] MEDS: BUPROPION 300 MG PO SCH (19:37)
[2022-06-02] MEDS: Potassium Chloride 20 MEQ Tab.ER PO SCH ×2 (07:17→17:12)
[2022-06-02] MEDS: Citalopram 20 MG Tab PO SCH (07:17)
[2022-06-02] MEDS: Polyethylene Glycol 3350 Powder 510 GM Bot PO SCH (07:18)
[2022-06-02] MEDS: Albuterol/Ipratropium 3.0-0.5 MG/3 ML Neb Soln NEB SCH ×2 (07:18→19:41)
[2022-06-02] MEDS: Furosemide 20 MG Tab PO SCH (07:18)
[2022-06-02] MEDS: guaiFENesin 600 MG Tab.ER PO SCH ×2 (07:19→19:43)
[2022-06-02] MEDS: Calcium Carbonate 750 MG Tab.Chew PO SCH (07:19)
[2022-06-02] MEDS: Acetaminophen 500 MG Tab PO SCH ×3 (07:19→19:44)
[2022-06-02] MEDS: traMADol 50 MG Tab PO SCH (07:20)
[2022-06-02] MEDS: Cyanocobalamin (Vitamin B12) 1,000 MCG Tab PO SCH (07:36)
[2022-06-02] MEDS: BUPROPION 300 MG PO SCH (19:43)
[2022-06-02] MEDS: LEVOTHYROXINE 137 MCG PO SCH (19:43)
[2022-06-03] MEDS: guaiFENesin/Dextromethorphan 100-10 MG/5 ML Soln 10 ML Cup PO PRN (04:48)
[2022-06-03] MEDS: Citalopram 20 MG Tab PO SCH (07:12)
[2022-06-03] MEDS: Potassium Chloride 20 MEQ Tab.ER PO SCH ×2 (07:13→17:04)
[2022-06-03] MEDS: Furosemide 20 MG Tab PO SCH (07:13)
[2022-06-03] MEDS: Polyethylene Glycol 3350 Powder 510 GM Bot PO SCH (07:14)
[2022-06-03] MEDS: traMADol 50 MG Tab PO SCH (07:14)
[2022-06-03] MEDS: guaiFENesin 600 MG Tab.ER PO SCH ×2 (07:15→19:25)
[2022-06-03] MEDS: Calcium Carbonate 750 MG Tab.Chew PO SCH (07:16)
[2022-06-03] MEDS: Albuterol/Ipratropium 3.0-0.5 MG/3 ML Neb Soln NEB SCH ×2 (07:17→19:24)
[2022-06-03] MEDS: Acetaminophen 500 MG Tab PO SCH ×3 (07:17→19:25)
[2022-06-03] MEDS: Cyanocobalamin (Vitamin B12) 1,000 MCG Tab PO SCH (07:18)
[2022-06-03] MEDS: Menthol 10%/Methyl Salicylate 15% 85 GM Tube TOP PRN ×2 (07:22→19:26)
[2022-06-03] MEDS: BUPROPION 300 MG PO SCH (19:25)
[2022-06-03] MEDS: LEVOTHYROXINE 137 MCG PO SCH (19:25)
[2022-06-04] MEDS: Citalopram 20 MG Tab PO SCH (08:29)
[2022-06-04] MEDS: Potassium Chloride 20 MEQ Tab.ER PO SCH ×2 (08:29→17:18)
[2022-06-04] MEDS: Furosemide 20 MG Tab PO SCH (08:29)
[2022-06-04] MEDS: Calcium Carbonate 750 MG Tab.Chew PO SCH (08:30)
[2022-06-04] MEDS: Polyethylene Glycol 3350 Powder 510 GM Bot PO SCH (08:30)
[2022-06-04] MEDS: guaiFENesin 600 MG Tab.ER PO SCH ×2 (08:30→19:17)
[2022-06-04] MEDS: traMADol 50 MG Tab PO SCH (08:31)
[2022-06-04] MEDS: Acetaminophen 500 MG Tab PO SCH ×3 (08:31→19:16)
[2022-06-04] MEDS: Cyanocobalamin (Vitamin B12) 1,000 MCG Tab PO SCH (08:32)
[2022-06-04] MEDS: Albuterol/Ipratropium 3.0-0.5 MG/3 ML Neb Soln NEB SCH ×2 (09:15→19:16)
[2022-06-04] MEDS: BUPROPION 300 MG PO SCH (19:16)
[2022-06-04] MEDS: LEVOTHYROXINE 137 MCG PO SCH (19:16)
[2022-06-05] MEDS: traMADol 50 MG Tab PO SCH (08:06)
[2022-06-05] MEDS: Acetaminophen 500 MG Tab PO SCH ×3 (08:07→19:42)
[2022-06-05] MEDS: Citalopram 20 MG Tab PO SCH (08:07)
[2022-06-05] MEDS: Potassium Chloride 20 MEQ Tab.ER PO SCH ×2 (08:08→17:20)
[2022-06-05] MEDS: Albuterol/Ipratropium 3.0-0.5 MG/3 ML Neb Soln NEB SCH ×2 (08:08→19:40)
[2022-06-05] MEDS: Furosemide 20 MG Tab PO SCH (08:09)
[2022-06-05] MEDS: Polyethylene Glycol 3350 Powder 510 GM Bot PO SCH (08:10)
[2022-06-05] MEDS: Cyanocobalamin (Vitamin B12) 1,000 MCG Tab PO SCH (08:11)
[2022-06-05] MEDS: Calcium Carbonate 750 MG Tab.Chew PO SCH (08:11)
[2022-06-05] MEDS: guaiFENesin 600 MG Tab.ER PO SCH ×2 (08:11→19:42)
[2022-06-05] MEDS: LEVOTHYROXINE 137 MCG PO SCH (19:41)
[2022-06-05] MEDS: BUPROPION 300 MG PO SCH (19:42)
[2022-06-06] MEDS: Citalopram 20 MG Tab PO SCH (07:29)
[2022-06-06] MEDS: Calcium Carbonate 750 MG Tab.Chew PO SCH (07:30)
[2022-06-06] MEDS: guaiFENesin 600 MG Tab.ER PO SCH ×2 (07:30→19:37)
[2022-06-06] MEDS: Furosemide 20 MG Tab PO SCH (07:30)
[2022-06-06] MEDS: Albuterol/Ipratropium 3.0-0.5 MG/3 ML Neb Soln NEB SCH ×2 (07:30→19:33)
[2022-06-06] MEDS: Potassium Chloride 20 MEQ Tab.ER PO SCH ×2 (07:30→17:20)
[2022-06-06] MEDS: Cyanocobalamin (Vitamin B12) 1,000 MCG Tab PO SCH (07:31)
[2022-06-06] MEDS: Acetaminophen 500 MG Tab PO SCH ×3 (07:31→19:37)
[2022-06-06] MEDS: Menthol 10%/Methyl Salicylate 15% 85 GM Tube TOP PRN (07:32)
[2022-06-06] MEDS: Polyethylene Glycol 3350 Powder 510 GM Bot PO SCH (07:33)
[2022-06-06] MEDS: traMADol 50 MG Tab PO SCH (07:33)
[2022-06-06] MEDS: LEVOTHYROXINE 137 MCG PO SCH (19:34)
[2022-06-06] MEDS: BUPROPION 300 MG PO SCH (19:37)
[2022-06-07] MEDS: Albuterol/Ipratropium 3.0-0.5 MG/3 ML Neb Soln NEB SCH ×2 (07:13→19:32)
[2022-06-07] MEDS: Potassium Chloride 20 MEQ Tab.ER PO SCH ×2 (07:15→17:09)
[2022-06-07] MEDS: Furosemide 20 MG Tab PO SCH (07:15)
[2022-06-07] MEDS: Citalopram 20 MG Tab PO SCH (07:15)
[2022-06-07] MEDS: Acetaminophen 500 MG Tab PO SCH ×3 (07:16→19:32)
[2022-06-07] MEDS: guaiFENesin 600 MG Tab.ER PO SCH ×2 (07:16→19:32)
[2022-06-07] MEDS: Polyethylene Glycol 3350 Powder 510 GM Bot PO SCH (07:16)
[2022-06-07] MEDS: Cyanocobalamin (Vitamin B12) 1,000 MCG Tab PO SCH (07:17)
[2022-06-07] MEDS: Calcium Carbonate 750 MG Tab.Chew PO SCH (07:17)
[2022-06-07] MEDS: traMADol 50 MG Tab PO SCH (07:17)
[2022-06-07] MEDS: LEVOTHYROXINE 137 MCG PO SCH (19:32)
[2022-06-07] MEDS: BUPROPION 300 MG PO SCH (19:32)
[2022-06-07] MEDS: Menthol 10%/Methyl Salicylate 15% 85 GM Tube TOP PRN (19:34)
[2022-06-08] MEDS: Citalopram 20 MG Tab PO SCH (07:31)
[2022-06-08] MEDS: Albuterol/Ipratropium 3.0-0.5 MG/3 ML Neb Soln NEB SCH ×2 (07:31→19:19)
[2022-06-08] MEDS: Potassium Chloride 20 MEQ Tab.ER PO SCH ×2 (07:31→17:05)
[2022-06-08] MEDS: Polyethylene Glycol 3350 Powder 510 GM Bot PO SCH (07:31)
[2022-06-08] MEDS: guaiFENesin 600 MG Tab.ER PO SCH ×2 (07:32→19:19)
[2022-06-08] MEDS: Furosemide 20 MG Tab PO SCH (07:32)
[2022-06-08] MEDS: Acetaminophen 500 MG Tab PO SCH ×3 (07:32→19:20)
[2022-06-08] MEDS: Cyanocobalamin (Vitamin B12) 1,000 MCG Tab PO SCH (07:33)
[2022-06-08] MEDS: Calcium Carbonate 750 MG Tab.Chew PO SCH (07:33)
[2022-06-08] MEDS: traMADol 50 MG Tab PO SCH (07:33)
[2022-06-08] MEDS: BUPROPION 300 MG PO SCH (19:19)
[2022-06-08] MEDS: LEVOTHYROXINE 137 MCG PO SCH (19:19)
[2022-06-08] MEDS: Menthol 10%/Methyl Salicylate 15% 85 GM Tube TOP PRN (19:41)
[2022-06-09] MEDS: Potassium Chloride 20 MEQ Tab.ER PO SCH ×2 (07:31→17:19)
[2022-06-09] MEDS: Citalopram 20 MG Tab PO SCH (07:31)
[2022-06-09] MEDS: Albuterol/Ipratropium 3.0-0.5 MG/3 ML Neb Soln NEB SCH ×2 (07:32→19:22)
[2022-06-09] MEDS: Furosemide 20 MG Tab PO SCH (07:32)
[2022-06-09] MEDS: Calcium Carbonate 750 MG Tab.Chew PO SCH (07:33)
[2022-06-09] MEDS: guaiFENesin 600 MG Tab.ER PO SCH ×2 (07:33→19:24)
[2022-06-09] MEDS: Polyethylene Glycol 3350 Powder 510 GM Bot PO SCH (07:33)
[2022-06-09] MEDS: Cyanocobalamin (Vitamin B12) 1,000 MCG Tab PO SCH (07:34)
[2022-06-09] MEDS: Acetaminophen 500 MG Tab PO SCH ×3 (07:34→19:24)
[2022-06-09] MEDS: traMADol 50 MG Tab PO SCH (07:35)
[2022-06-09] MEDS: Menthol 10%/Methyl Salicylate 15% 85 GM Tube TOP PRN ×2 (07:37→19:25)
[2022-06-09] MEDS: LEVOTHYROXINE 137 MCG PO SCH (19:23)
[2022-06-09] MEDS: BUPROPION 300 MG PO SCH (19:23)
[2022-06-10] MEDS: Citalopram 20 MG Tab PO SCH (07:28)
[2022-06-10] MEDS: Furosemide 20 MG Tab PO SCH (07:28)
[2022-06-10] MEDS: Potassium Chloride 20 MEQ Tab.ER PO SCH ×2 (07:28→17:44)
[2022-06-10] MEDS: Albuterol/Ipratropium 3.0-0.5 MG/3 ML Neb Soln NEB SCH ×2 (07:29→19:27)
[2022-06-10] MEDS: Polyethylene Glycol 3350 Powder 510 GM Bot PO SCH (07:29)
[2022-06-10] MEDS: guaiFENesin 600 MG Tab.ER PO SCH ×2 (07:29→19:27)
[2022-06-10] MEDS: Cyanocobalamin (Vitamin B12) 1,000 MCG Tab PO SCH (07:30)
[2022-06-10] MEDS: Acetaminophen 500 MG Tab PO SCH ×3 (07:30→19:26)
[2022-06-10] MEDS: Calcium Carbonate 750 MG Tab.Chew PO SCH (07:30)
[2022-06-10] MEDS: traMADol 50 MG Tab PO SCH (07:31)
[2022-06-10] MEDS: BUPROPION 300 MG PO SCH (19:25)
[2022-06-10] MEDS: LEVOTHYROXINE 137 MCG PO SCH (19:25)
[2022-06-11] MEDS: Albuterol/Ipratropium 3.0-0.5 MG/3 ML Neb Soln NEB SCH ×2 (07:45→19:01)
[2022-06-11] MEDS: Furosemide 20 MG Tab PO SCH (07:52)
[2022-06-11] MEDS: Polyethylene Glycol 3350 Powder 510 GM Bot PO SCH (07:52)
[2022-06-11] MEDS: Citalopram 20 MG Tab PO SCH (07:52)
[2022-06-11] MEDS: Potassium Chloride 20 MEQ Tab.ER PO SCH ×2 (07:52→17:33)
[2022-06-11] MEDS: Calcium Carbonate 750 MG Tab.Chew PO SCH (07:53)
[2022-06-11] MEDS: guaiFENesin 600 MG Tab.ER PO SCH ×2 (07:53→19:02)
[2022-06-11] MEDS: Acetaminophen 500 MG Tab PO SCH ×3 (07:53→19:02)
[2022-06-11] MEDS: traMADol 50 MG Tab PO SCH (07:54)
[2022-06-11] MEDS: Cyanocobalamin (Vitamin B12) 1,000 MCG Tab PO SCH (07:55)
[2022-06-11] MEDS: BUPROPION 300 MG PO SCH (19:01)
[2022-06-11] MEDS: LEVOTHYROXINE 137 MCG PO SCH (19:01)
[2022-06-12] MEDS: Furosemide 20 MG Tab PO SCH (08:22)
[2022-06-12] MEDS: Potassium Chloride 20 MEQ Tab.ER PO SCH ×2 (08:22→17:25)
[2022-06-12] MEDS: Albuterol/Ipratropium 3.0-0.5 MG/3 ML Neb Soln NEB SCH ×2 (08:23→19:31)
[2022-06-12] MEDS: Citalopram 20 MG Tab PO SCH (08:24)
[2022-06-12] MEDS: Polyethylene Glycol 3350 Powder 510 GM Bot PO SCH (08:25)
[2022-06-12] MEDS: guaiFENesin 600 MG Tab.ER PO SCH ×2 (08:26→19:32)
[2022-06-12] MEDS: Acetaminophen 500 MG Tab PO SCH ×3 (08:26→19:32)
[2022-06-12] MEDS: Calcium Carbonate 750 MG Tab.Chew PO SCH (08:27)
[2022-06-12] MEDS: traMADol 50 MG Tab PO SCH (08:28)
[2022-06-12] MEDS: Cyanocobalamin (Vitamin B12) 1,000 MCG Tab PO SCH (08:28)
[2022-06-12] MEDS: LEVOTHYROXINE 137 MCG PO SCH (19:31)
[2022-06-12] MEDS: BUPROPION 300 MG PO SCH (19:31)
[2022-06-12] MEDS: Menthol 10%/Methyl Salicylate 15% 85 GM Tube TOP PRN (19:34)
[2022-06-13] MEDS: Polyethylene Glycol 3350 Powder 510 GM Bot PO SCH (07:18)
[2022-06-13] MEDS: traMADol 50 MG Tab PO SCH (07:19)
[2022-06-13] MEDS: Acetaminophen 500 MG Tab PO SCH ×3 (07:19→19:22)
[2022-06-13] MEDS: guaiFENesin 600 MG Tab.ER PO SCH ×2 (07:20→19:22)
[2022-06-13] MEDS: Calcium Carbonate 750 MG Tab.Chew PO SCH (07:20)
[2022-06-13] MEDS: Citalopram 20 MG Tab PO SCH (07:21)
[2022-06-13] MEDS: Potassium Chloride 20 MEQ Tab.ER PO SCH ×2 (07:21→17:09)
[2022-06-13] MEDS: Albuterol/Ipratropium 3.0-0.5 MG/3 ML Neb Soln NEB SCH ×2 (07:21→19:21)
[2022-06-13] MEDS: Furosemide 20 MG Tab PO SCH (07:21)
[2022-06-13] MEDS: Cyanocobalamin (Vitamin B12) 1,000 MCG Tab PO SCH (07:21)
[2022-06-13] MEDS: LEVOTHYROXINE 137 MCG PO SCH (19:21)
[2022-06-13] MEDS: BUPROPION 300 MG PO SCH (19:21)
[2022-06-13] MEDS: Menthol 10%/Methyl Salicylate 15% 85 GM Tube TOP PRN (19:23)
[2022-06-14] MEDS: Citalopram 20 MG Tab PO SCH (07:41)
[2022-06-14] MEDS: Potassium Chloride 20 MEQ Tab.ER PO SCH ×2 (07:41→17:02)
[2022-06-14] MEDS: guaiFENesin 600 MG Tab.ER PO SCH ×2 (07:42→19:30)
[2022-06-14] MEDS: Furosemide 20 MG Tab PO SCH (07:42)
[2022-06-14] MEDS: Calcium Carbonate 750 MG Tab.Chew PO SCH (07:42)
[2022-06-14] MEDS: Albuterol/Ipratropium 3.0-0.5 MG/3 ML Neb Soln NEB SCH ×2 (07:42→19:28)
[2022-06-14] MEDS: Acetaminophen 500 MG Tab PO SCH ×3 (07:43→19:30)
[2022-06-14] MEDS: Cyanocobalamin (Vitamin B12) 1,000 MCG Tab PO SCH (07:44)
[2022-06-14] MEDS: Polyethylene Glycol 3350 Powder 510 GM Bot PO SCH (07:44)
[2022-06-14] MEDS: traMADol 50 MG Tab PO SCH (07:44)
[2022-06-14] MEDS: guaiFENesin/Dextromethorphan 100-10 MG/5 ML Soln 10 ML Cup PO PRN (07:50)
[2022-06-14] MEDS: Albuterol/Ipratropium 3.0-0.5 MG/3 ML Neb Soln NEB PRN (19:28)
[2022-06-14] MEDS: LEVOTHYROXINE 137 MCG PO SCH (19:29)
[2022-06-14] MEDS: BUPROPION 300 MG PO SCH (19:30)
[2022-06-15] MEDS: Potassium Chloride 20 MEQ Tab.ER PO SCH ×2 (07:47→17:01)
[2022-06-15] MEDS: Albuterol/Ipratropium 3.0-0.5 MG/3 ML Neb Soln NEB SCH ×2 (07:47→19:23)
[2022-06-15] MEDS: Furosemide 20 MG Tab PO SCH (07:47)
[2022-06-15] MEDS: Citalopram 20 MG Tab PO SCH (07:47)
[2022-06-15] MEDS: guaiFENesin 600 MG Tab.ER PO SCH ×2 (07:48→19:24)
[2022-06-15] MEDS: Calcium Carbonate 750 MG Tab.Chew PO SCH (07:48)
[2022-06-15] MEDS: Polyethylene Glycol 3350 Powder 510 GM Bot PO SCH (07:48)
[2022-06-15] MEDS: Cyanocobalamin (Vitamin B12) 1,000 MCG Tab PO SCH (07:49)
[2022-06-15] MEDS: Acetaminophen 500 MG Tab PO SCH ×4 (07:49→19:25)
[2022-06-15] MEDS: Menthol 10%/Methyl Salicylate 15% 85 GM Tube TOP PRN (07:49)
[2022-06-15] MEDS: traMADol 50 MG Tab PO SCH (07:50)
[2022-06-15] MEDS: BUPROPION 300 MG PO SCH (19:24)
[2022-06-15] MEDS: LEVOTHYROXINE 137 MCG PO SCH (19:24)
[2022-06-16] MEDS: Citalopram 20 MG Tab PO SCH (07:36)
[2022-06-16] MEDS: Polyethylene Glycol 3350 Powder 510 GM Bot PO SCH (07:37)
[2022-06-16] MEDS: Calcium Carbonate 750 MG Tab.Chew PO SCH (07:37)
[2022-06-16] MEDS: Furosemide 20 MG Tab PO SCH (07:37)
[2022-06-16] MEDS: Potassium Chloride 20 MEQ Tab.ER PO SCH ×2 (07:37→17:47)
[2022-06-16] MEDS: Albuterol/Ipratropium 3.0-0.5 MG/3 ML Neb Soln NEB SCH ×2 (07:38→19:34)
[2022-06-16] MEDS: Acetaminophen 500 MG Tab PO SCH ×3 (07:38→19:39)
[2022-06-16] MEDS: guaiFENesin 600 MG Tab.ER PO SCH ×2 (07:38→19:38)
[2022-06-16] MEDS: traMADol 50 MG Tab PO SCH (07:39)
[2022-06-16] MEDS: Cyanocobalamin (Vitamin B12) 1,000 MCG Tab PO SCH (07:39)
[2022-06-16] MEDS: LEVOTHYROXINE 137 MCG PO SCH (19:38)
[2022-06-16] MEDS: BUPROPION 300 MG PO SCH (19:38)
[2022-06-17] MEDS: Citalopram 20 MG Tab PO SCH (08:00)
[2022-06-17] MEDS: Potassium Chloride 20 MEQ Tab.ER PO SCH ×2 (08:01→17:09)
[2022-06-17] MEDS: Furosemide 20 MG Tab PO SCH (08:01)
[2022-06-17] MEDS: Polyethylene Glycol 3350 Powder 510 GM Bot PO SCH (08:02)
[2022-06-17] MEDS: guaiFENesin 600 MG Tab.ER PO SCH ×2 (08:03→19:43)
[2022-06-17] MEDS: Acetaminophen 500 MG Tab PO SCH ×3 (08:04→19:42)
[2022-06-17] MEDS: Calcium Carbonate 750 MG Tab.Chew PO SCH (08:04)
[2022-06-17] MEDS: Menthol 10%/Methyl Salicylate 15% 85 GM Tube TOP PRN ×2 (08:06→15:45)
[2022-06-17] MEDS: Cyanocobalamin (Vitamin B12) 1,000 MCG Tab PO SCH (08:06)
[2022-06-17] MEDS: traMADol 50 MG Tab PO SCH (08:07)
[2022-06-17] MEDS: Albuterol/Ipratropium 3.0-0.5 MG/3 ML Neb Soln NEB SCH ×2 (08:08→19:42)
[2022-06-17] MEDS: traMADol 50 MG Tab PO PRN (15:44)
[2022-06-17] MEDS: LEVOTHYROXINE 137 MCG PO SCH (19:42)
[2022-06-17] MEDS: BUPROPION 300 MG PO SCH (19:42)
[2022-06-18] MEDS: Acetaminophen 500 MG Tab PO SCH ×3 (07:37→19:09)
[2022-06-18] MEDS: traMADol 50 MG Tab PO SCH (07:37)
[2022-06-18] MEDS: Polyethylene Glycol 3350 Powder 510 GM Bot PO SCH (07:37)
[2022-06-18] MEDS: guaiFENesin 600 MG Tab.ER PO SCH ×2 (07:38→19:09)
[2022-06-18] MEDS: Cyanocobalamin (Vitamin B12) 1,000 MCG Tab PO SCH (07:38)
[2022-06-18] MEDS: Calcium Carbonate 750 MG Tab.Chew PO SCH (07:38)
[2022-06-18] MEDS: Albuterol/Ipratropium 3.0-0.5 MG/3 ML Neb Soln NEB SCH ×2 (07:39→19:08)
[2022-06-18] MEDS: Furosemide 20 MG Tab PO SCH (07:39)
[2022-06-18] MEDS: Potassium Chloride 20 MEQ Tab.ER PO SCH ×2 (07:39→17:19)
[2022-06-18] MEDS: Citalopram 20 MG Tab PO SCH (07:39)
[2022-06-18] MEDS: BUPROPION 300 MG PO SCH (19:08)
[2022-06-18] MEDS: LEVOTHYROXINE 137 MCG PO SCH (19:09)
[2022-06-19] MEDS: Citalopram 20 MG Tab PO SCH (07:35)
[2022-06-19] MEDS: Potassium Chloride 20 MEQ Tab.ER PO SCH ×2 (07:35→17:38)
[2022-06-19] MEDS: Calcium Carbonate 750 MG Tab.Chew PO SCH (07:36)
[2022-06-19] MEDS: Furosemide 20 MG Tab PO SCH (07:36)
[2022-06-19] MEDS: guaiFENesin 600 MG Tab.ER PO SCH ×2 (07:37→19:48)
[2022-06-19] MEDS: Acetaminophen 500 MG Tab PO SCH ×3 (07:37→19:48)
[2022-06-19] MEDS: Cyanocobalamin (Vitamin B12) 1,000 MCG Tab PO SCH (07:38)
[2022-06-19] MEDS: Polyethylene Glycol 3350 Powder 510 GM Bot PO SCH (07:38)
[2022-06-19] MEDS: Albuterol/Ipratropium 3.0-0.5 MG/3 ML Neb Soln NEB SCH ×2 (07:41→19:46)
[2022-06-19] MEDS: traMADol 50 MG Tab PO SCH (07:42)
[2022-06-19] MEDS: LEVOTHYROXINE 137 MCG PO SCH (19:47)
[2022-06-19] MEDS: BUPROPION 300 MG PO SCH (19:48)
[2022-06-20] MEDS: traMADol 50 MG Tab PO SCH (07:28)
[2022-06-20] MEDS: Calcium Carbonate 750 MG Tab.Chew PO SCH (07:29)
[2022-06-20] MEDS: Acetaminophen 500 MG Tab PO SCH ×3 (07:29→19:54)
[2022-06-20] MEDS: Citalopram 20 MG Tab PO SCH (07:30)
[2022-06-20] MEDS: Albuterol/Ipratropium 3.0-0.5 MG/3 ML Neb Soln NEB SCH ×2 (07:30→19:52)
[2022-06-20] MEDS: Cyanocobalamin (Vitamin B12) 1,000 MCG Tab PO SCH (07:30)
[2022-06-20] MEDS: Potassium Chloride 20 MEQ Tab.ER PO SCH ×2 (07:30→17:36)
[2022-06-20] MEDS: Furosemide 20 MG Tab PO SCH (07:30)
[2022-06-20] MEDS: Polyethylene Glycol 3350 Powder 510 GM Bot PO SCH (07:31)
[2022-06-20] MEDS: guaiFENesin 600 MG Tab.ER PO SCH ×2 (07:31→19:54)
[2022-06-20] MEDS: LEVOTHYROXINE 137 MCG PO SCH (19:53)
[2022-06-20] MEDS: BUPROPION 300 MG PO SCH (19:54)
[2022-06-21] MEDS: traMADol 50 MG Tab PO SCH (07:15)
[2022-06-21] MEDS: Cyanocobalamin (Vitamin B12) 1,000 MCG Tab PO SCH (07:16)
[2022-06-21] MEDS: Acetaminophen 500 MG Tab PO SCH ×3 (07:16→19:11)
[2022-06-21] MEDS: Furosemide 20 MG Tab PO SCH (07:17)
[2022-06-21] MEDS: Potassium Chloride 20 MEQ Tab.ER PO SCH ×2 (07:17→17:29)
[2022-06-21] MEDS: Citalopram 20 MG Tab PO SCH (07:17)
[2022-06-21] MEDS: Albuterol/Ipratropium 3.0-0.5 MG/3 ML Neb Soln NEB SCH ×2 (07:17→19:11)
[2022-06-21] MEDS: Polyethylene Glycol 3350 Powder 510 GM Bot PO SCH (07:18)
[2022-06-21] MEDS: Calcium Carbonate 750 MG Tab.Chew PO SCH (07:18)
[2022-06-21] MEDS: guaiFENesin 600 MG Tab.ER PO SCH ×2 (07:18→19:12)
[2022-06-21] MEDS: LEVOTHYROXINE 137 MCG PO SCH (19:11)
[2022-06-21] MEDS: BUPROPION 300 MG PO SCH (19:11)
[2022-06-22] MEDS: traMADol 50 MG Tab PO SCH (07:16)
[2022-06-22] MEDS: Acetaminophen 500 MG Tab PO SCH ×3 (07:16→19:09)
[2022-06-22] MEDS: Citalopram 20 MG Tab PO SCH (07:17)
[2022-06-22] MEDS: Polyethylene Glycol 3350 Powder 510 GM Bot PO SCH (07:17)
[2022-06-22] MEDS: Albuterol/Ipratropium 3.0-0.5 MG/3 ML Neb Soln NEB SCH ×2 (07:17→19:09)
[2022-06-22] MEDS: Calcium Carbonate 750 MG Tab.Chew PO SCH (07:17)
[2022-06-22] MEDS: Furosemide 20 MG Tab PO SCH (07:18)
[2022-06-22] MEDS: Potassium Chloride 20 MEQ Tab.ER PO SCH ×2 (07:18→17:20)
[2022-06-22] MEDS: Cyanocobalamin (Vitamin B12) 1,000 MCG Tab PO SCH (07:18)
[2022-06-22] MEDS: guaiFENesin 600 MG Tab.ER PO SCH ×2 (07:18→19:09)
[2022-06-22] MEDS: BUPROPION 300 MG PO SCH (19:08)
[2022-06-22] MEDS: LEVOTHYROXINE 137 MCG PO SCH (19:08)
[2022-06-23] MEDS: traMADol 50 MG Tab PO SCH (07:38)
[2022-06-23] MEDS: Acetaminophen 500 MG Tab PO SCH ×3 (07:39→19:10)
[2022-06-23] MEDS: Calcium Carbonate 750 MG Tab.Chew PO SCH (07:39)
[2022-06-23] MEDS: Albuterol/Ipratropium 3.0-0.5 MG/3 ML Neb Soln NEB SCH ×2 (07:40→19:10)
[2022-06-23] MEDS: Citalopram 20 MG Tab PO SCH (07:40)
[2022-06-23] MEDS: Cyanocobalamin (Vitamin B12) 1,000 MCG Tab PO SCH (07:40)
[2022-06-23] MEDS: Polyethylene Glycol 3350 Powder 510 GM Bot PO SCH (07:40)
[2022-06-23] MEDS: guaiFENesin 600 MG Tab.ER PO SCH ×2 (07:41→19:10)
[2022-06-23] MEDS: Potassium Chloride 20 MEQ Tab.ER PO SCH ×2 (07:41→17:29)
[2022-06-23] MEDS: Furosemide 20 MG Tab PO SCH (07:41)
[2022-06-23] MEDS: BUPROPION 300 MG PO SCH (19:10)
[2022-06-23] MEDS: LEVOTHYROXINE 137 MCG PO SCH (19:10)
[2022-06-24] MEDS: Citalopram 20 MG Tab PO SCH (07:21)
[2022-06-24] MEDS: Potassium Chloride 20 MEQ Tab.ER PO SCH ×2 (07:21→17:12)
[2022-06-24] MEDS: Albuterol/Ipratropium 3.0-0.5 MG/3 ML Neb Soln NEB SCH ×2 (07:21→19:34)
[2022-06-24] MEDS: Polyethylene Glycol 3350 Powder 510 GM Bot PO SCH (07:22)
[2022-06-24] MEDS: guaiFENesin 600 MG Tab.ER PO SCH ×2 (07:22→19:35)
[2022-06-24] MEDS: Furosemide 20 MG Tab PO SCH (07:22)
[2022-06-24] MEDS: Calcium Carbonate 750 MG Tab.Chew PO SCH (07:23)
[2022-06-24] MEDS: Acetaminophen 500 MG Tab PO SCH ×3 (07:23→19:36)
[2022-06-24] MEDS: traMADol 50 MG Tab PO SCH (07:23)
[2022-06-24] MEDS: Cyanocobalamin (Vitamin B12) 1,000 MCG Tab PO SCH (07:24)
[2022-06-24] MEDS: LEVOTHYROXINE 137 MCG PO SCH (19:35)
[2022-06-24] MEDS: BUPROPION 300 MG PO SCH (19:36)
[2022-06-25] MEDS: Furosemide 20 MG Tab PO SCH (07:19)
[2022-06-25] MEDS: Potassium Chloride 20 MEQ Tab.ER PO SCH ×2 (07:19→17:03)
[2022-06-25] MEDS: Citalopram 20 MG Tab PO SCH (07:19)
[2022-06-25] MEDS: Albuterol/Ipratropium 3.0-0.5 MG/3 ML Neb Soln NEB SCH ×2 (07:20→19:19)
[2022-06-25] MEDS: guaiFENesin 600 MG Tab.ER PO SCH ×2 (07:20→19:20)
[2022-06-25] MEDS: Calcium Carbonate 750 MG Tab.Chew PO SCH (07:21)
[2022-06-25] MEDS: Acetaminophen 500 MG Tab PO SCH ×3 (07:21→19:20)
[2022-06-25] MEDS: Polyethylene Glycol 3350 Powder 510 GM Bot PO SCH (07:23)
[2022-06-25] MEDS: Cyanocobalamin (Vitamin B12) 1,000 MCG Tab PO SCH (07:23)
[2022-06-25] MEDS: traMADol 50 MG Tab PO SCH (07:24)
[2022-06-25] MEDS: LEVOTHYROXINE 137 MCG PO SCH (19:19)
[2022-06-25] MEDS: BUPROPION 300 MG PO SCH (19:19)
[2022-06-25] MEDS: Menthol 10%/Methyl Salicylate 15% 85 GM Tube TOP PRN (19:22)
[2022-06-26] MEDS: Albuterol/Ipratropium 3.0-0.5 MG/3 ML Neb Soln NEB SCH ×2 (07:34→19:40)
[2022-06-26] MEDS: Citalopram 20 MG Tab PO SCH (07:34)
[2022-06-26] MEDS: Potassium Chloride 20 MEQ Tab.ER PO SCH ×2 (07:34→17:07)
[2022-06-26] MEDS: Furosemide 20 MG Tab PO SCH (07:35)
[2022-06-26] MEDS: traMADol 50 MG Tab PO SCH (07:35)
[2022-06-26] MEDS: Calcium Carbonate 750 MG Tab.Chew PO SCH (07:36)
[2022-06-26] MEDS: Acetaminophen 500 MG Tab PO SCH ×3 (07:36→19:40)
[2022-06-26] MEDS: Polyethylene Glycol 3350 Powder 510 GM Bot PO SCH (07:37)
[2022-06-26] MEDS: guaiFENesin 600 MG Tab.ER PO SCH ×2 (07:37→19:40)
[2022-06-26] MEDS: Cyanocobalamin (Vitamin B12) 1,000 MCG Tab PO SCH (07:38)
[2022-06-26] MEDS: BUPROPION 300 MG PO SCH (19:39)
[2022-06-26] MEDS: LEVOTHYROXINE 137 MCG PO SCH (19:39)
[2022-06-27] MEDS: Citalopram 20 MG Tab PO SCH (07:46)
[2022-06-27] MEDS: Furosemide 20 MG Tab PO SCH (07:47)
[2022-06-27] MEDS: Potassium Chloride 20 MEQ Tab.ER PO SCH ×2 (07:47→17:42)
[2022-06-27] MEDS: Albuterol/Ipratropium 3.0-0.5 MG/3 ML Neb Soln NEB SCH ×2 (07:47→19:19)
[2022-06-27] MEDS: guaiFENesin 600 MG Tab.ER PO SCH ×2 (07:48→19:17)
[2022-06-27] MEDS: Calcium Carbonate 750 MG Tab.Chew PO SCH (07:48)
[2022-06-27] MEDS: Acetaminophen 500 MG Tab PO SCH ×3 (07:49→19:18)
[2022-06-27] MEDS: Cyanocobalamin (Vitamin B12) 1,000 MCG Tab PO SCH (07:50)
[2022-06-27] MEDS: traMADol 50 MG Tab PO SCH (07:50)
[2022-06-27] MEDS: Polyethylene Glycol 3350 Powder 510 GM Bot PO SCH (07:59)
[2022-06-27] MEDS: Menthol 10%/Methyl Salicylate 15% 85 GM Tube TOP PRN (08:07)
[2022-06-27] MEDS: BUPROPION 300 MG PO SCH (19:19)
[2022-06-27] MEDS: LEVOTHYROXINE 137 MCG PO SCH (19:19)
[2022-06-28] MEDS: Albuterol/Ipratropium 3.0-0.5 MG/3 ML Neb Soln NEB SCH ×2 (07:13→19:34)
[2022-06-28] MEDS: Potassium Chloride 20 MEQ Tab.ER PO SCH ×2 (07:13→17:19)
[2022-06-28] MEDS: Citalopram 20 MG Tab PO SCH (07:13)
[2022-06-28] MEDS: Furosemide 20 MG Tab PO SCH (07:13)
[2022-06-28] MEDS: guaiFENesin 600 MG Tab.ER PO SCH ×2 (07:14→19:34)
[2022-06-28] MEDS: Calcium Carbonate 750 MG Tab.Chew PO SCH (07:14)
[2022-06-28] MEDS: Acetaminophen 500 MG Tab PO SCH ×3 (07:15→19:35)
[2022-06-28] MEDS: Cyanocobalamin (Vitamin B12) 1,000 MCG Tab PO SCH (07:16)
[2022-06-28] MEDS: traMADol 50 MG Tab PO SCH (07:16)
[2022-06-28] MEDS: Polyethylene Glycol 3350 Powder 510 GM Bot PO SCH (07:16)
[2022-06-28] MEDS: Menthol 10%/Methyl Salicylate 15% 85 GM Tube TOP PRN ×2 (08:10→19:36)
[2022-06-28] MEDS: BUPROPION 300 MG PO SCH (19:34)
[2022-06-28] MEDS: LEVOTHYROXINE 137 MCG PO SCH (19:34)
[2022-06-29] MEDS: Citalopram 20 MG Tab PO SCH (07:11)
[2022-06-29] MEDS: Potassium Chloride 20 MEQ Tab.ER PO SCH ×2 (07:11→17:32)
[2022-06-29] MEDS: Furosemide 20 MG Tab PO SCH (07:12)
[2022-06-29] MEDS: Albuterol/Ipratropium 3.0-0.5 MG/3 ML Neb Soln NEB SCH ×2 (07:12→19:13)
[2022-06-29] MEDS: Polyethylene Glycol 3350 Powder 510 GM Bot PO SCH (07:13)
[2022-06-29] MEDS: guaiFENesin 600 MG Tab.ER PO SCH ×2 (07:13→19:14)
[2022-06-29] MEDS: Acetaminophen 500 MG Tab PO SCH ×3 (07:14→19:14)
[2022-06-29] MEDS: Calcium Carbonate 750 MG Tab.Chew PO SCH (07:14)
[2022-06-29] MEDS: Cyanocobalamin (Vitamin B12) 1,000 MCG Tab PO SCH (07:15)
[2022-06-29] MEDS: traMADol 50 MG Tab PO SCH (07:16)
[2022-06-29] MEDS: BUPROPION 300 MG PO SCH (19:14)
[2022-06-29] MEDS: LEVOTHYROXINE 137 MCG PO SCH (19:14)
[2022-06-29] MEDS: Menthol 10%/Methyl Salicylate 15% 85 GM Tube TOP PRN (19:38)
[2022-06-30] MEDS: Potassium Chloride 20 MEQ Tab.ER PO SCH ×2 (07:13→17:07)
[2022-06-30] MEDS: Furosemide 20 MG Tab PO SCH (07:13)
[2022-06-30] MEDS: Citalopram 20 MG Tab PO SCH (07:13)
[2022-06-30] MEDS: guaiFENesin 600 MG Tab.ER PO SCH ×2 (07:14→19:38)
[2022-06-30] MEDS: Polyethylene Glycol 3350 Powder 510 GM Bot PO SCH (07:14)
[2022-06-30] MEDS: Albuterol/Ipratropium 3.0-0.5 MG/3 ML Neb Soln NEB SCH ×2 (07:14→19:37)
[2022-06-30] MEDS: Acetaminophen 500 MG Tab PO SCH ×3 (07:15→19:38)
[2022-06-30] MEDS: Cyanocobalamin (Vitamin B12) 1,000 MCG Tab PO SCH (07:16)
[2022-06-30] MEDS: Calcium Carbonate 750 MG Tab.Chew PO SCH (07:16)
[2022-06-30] MEDS: traMADol 50 MG Tab PO SCH (07:17)
[2022-06-30] MEDS: LEVOTHYROXINE 137 MCG PO SCH (19:37)
[2022-06-30] MEDS: BUPROPION 300 MG PO SCH (19:38)
[2022-06-30] MEDS: Menthol 10%/Methyl Salicylate 15% 85 GM Tube TOP PRN (19:40)
[2022-07-01] MEDS: Furosemide 20 MG Tab PO SCH (07:33)
[2022-07-01] MEDS: Citalopram 20 MG Tab PO SCH (07:33)
[2022-07-01] MEDS: Potassium Chloride 20 MEQ Tab.ER PO SCH ×2 (07:33→17:23)
[2022-07-01] MEDS: Albuterol/Ipratropium 3.0-0.5 MG/3 ML Neb Soln NEB SCH ×2 (07:33→20:12)
[2022-07-01] MEDS: guaiFENesin 600 MG Tab.ER PO SCH ×2 (07:34→20:11)
[2022-07-01] MEDS: Calcium Carbonate 750 MG Tab.Chew PO SCH (07:35)
[2022-07-01] MEDS: Acetaminophen 500 MG Tab PO SCH ×3 (07:36→20:12)
[2022-07-01] MEDS: Cyanocobalamin (Vitamin B12) 1,000 MCG Tab PO SCH (07:37)
[2022-07-01] MEDS: Polyethylene Glycol 3350 Powder 510 GM Bot PO SCH (07:38)
[2022-07-01] MEDS: traMADol 50 MG Tab PO SCH (07:39)
[2022-07-01] MEDS: BUPROPION 300 MG PO SCH (20:10)
[2022-07-01] MEDS: LEVOTHYROXINE 137 MCG PO SCH (20:10)
[2022-07-02] MEDS: Potassium Chloride 20 MEQ Tab.ER PO SCH ×2 (07:39→17:19)
[2022-07-02] MEDS: Albuterol/Ipratropium 3.0-0.5 MG/3 ML Neb Soln NEB SCH ×2 (07:39→19:16)
[2022-07-02] MEDS: Citalopram 20 MG Tab PO SCH (07:39)
[2022-07-02] MEDS: Furosemide 20 MG Tab PO SCH (07:40)
[2022-07-02] MEDS: Polyethylene Glycol 3350 Powder 510 GM Bot PO SCH (07:41)
[2022-07-02] MEDS: guaiFENesin 600 MG Tab.ER PO SCH ×2 (07:41→19:15)
[2022-07-02] MEDS: Calcium Carbonate 750 MG Tab.Chew PO SCH (07:41)
[2022-07-02] MEDS: Acetaminophen 500 MG Tab PO SCH ×3 (07:42→19:14)
[2022-07-02] MEDS: Cyanocobalamin (Vitamin B12) 1,000 MCG Tab PO SCH (07:42)
[2022-07-02] MEDS: traMADol 50 MG Tab PO SCH (07:43)
[2022-07-02] MEDS: Menthol 10%/Methyl Salicylate 15% 85 GM Tube TOP PRN (07:43)
[2022-07-02] MEDS: LEVOTHYROXINE 137 MCG PO SCH (19:14)
[2022-07-02] MEDS: BUPROPION 300 MG PO SCH (19:14)
[2022-07-03] MEDS: Citalopram 20 MG Tab PO SCH (07:49)
[2022-07-03] MEDS: Albuterol/Ipratropium 3.0-0.5 MG/3 ML Neb Soln NEB SCH ×2 (07:49→19:33)
[2022-07-03] MEDS: Furosemide 20 MG Tab PO SCH (07:49)
[2022-07-03] MEDS: Potassium Chloride 20 MEQ Tab.ER PO SCH ×2 (07:49→17:32)
[2022-07-03] MEDS: Calcium Carbonate 750 MG Tab.Chew PO SCH (07:50)
[2022-07-03] MEDS: Acetaminophen 500 MG Tab PO SCH ×3 (07:50→19:34)
[2022-07-03] MEDS: guaiFENesin 600 MG Tab.ER PO SCH ×2 (07:50→19:35)
[2022-07-03] MEDS: Polyethylene Glycol 3350 Powder 510 GM Bot PO SCH (07:50)
[2022-07-03] MEDS: traMADol 50 MG Tab PO SCH (07:51)
[2022-07-03] MEDS: Cyanocobalamin (Vitamin B12) 1,000 MCG Tab PO SCH (07:52)
[2022-07-03] MEDS: BUPROPION 300 MG PO SCH (19:33)
[2022-07-03] MEDS: LEVOTHYROXINE 137 MCG PO SCH (19:33)
[2022-07-04] MEDS: Polyethylene Glycol 3350 Powder 510 GM Bot PO SCH (07:28)
[2022-07-04] MEDS: guaiFENesin 600 MG Tab.ER PO SCH ×2 (07:28→19:44)
[2022-07-04] MEDS: Calcium Carbonate 750 MG Tab.Chew PO SCH (07:28)
[2022-07-04] MEDS: Acetaminophen 500 MG Tab PO SCH ×3 (07:29→19:44)
[2022-07-04] MEDS: traMADol 50 MG Tab PO SCH (07:29)
[2022-07-04] MEDS: Cyanocobalamin (Vitamin B12) 1,000 MCG Tab PO SCH (07:29)
[2022-07-04] MEDS: Citalopram 20 MG Tab PO SCH (07:30)
[2022-07-04] MEDS: Potassium Chloride 20 MEQ Tab.ER PO SCH ×2 (07:31→17:21)
[2022-07-04] MEDS: Furosemide 20 MG Tab PO SCH (07:31)
[2022-07-04] MEDS: Albuterol/Ipratropium 3.0-0.5 MG/3 ML Neb Soln NEB SCH ×2 (07:31→19:43)
[2022-07-04] MEDS: LEVOTHYROXINE 137 MCG PO SCH (19:44)
[2022-07-04] MEDS: BUPROPION 300 MG PO SCH (19:44)
[2022-07-05] MEDS: Potassium Chloride 20 MEQ Tab.ER PO SCH ×2 (08:18→17:38)
[2022-07-05] MEDS: Furosemide 20 MG Tab PO SCH (08:18)
[2022-07-05] MEDS: Citalopram 20 MG Tab PO SCH (08:18)
[2022-07-05] MEDS: Albuterol/Ipratropium 3.0-0.5 MG/3 ML Neb Soln NEB SCH ×2 (08:19→19:46)
[2022-07-05] MEDS: Polyethylene Glycol 3350 Powder 510 GM Bot PO SCH (08:19)
[2022-07-05] MEDS: Calcium Carbonate 750 MG Tab.Chew PO SCH (08:21)
[2022-07-05] MEDS: guaiFENesin 600 MG Tab.ER PO SCH ×2 (08:21→19:49)
[2022-07-05] MEDS: Acetaminophen 500 MG Tab PO SCH ×3 (08:22→19:49)
[2022-07-05] MEDS: Cyanocobalamin (Vitamin B12) 1,000 MCG Tab PO SCH (08:23)
[2022-07-05] MEDS: traMADol 50 MG Tab PO SCH (08:23)
[2022-07-05] MEDS: LEVOTHYROXINE 137 MCG PO SCH (19:48)
[2022-07-05] MEDS: BUPROPION 300 MG PO SCH (19:49)
[2022-07-06] MEDS: Furosemide 20 MG Tab PO SCH (08:11)
[2022-07-06] MEDS: Potassium Chloride 20 MEQ Tab.ER PO SCH ×2 (08:12→17:25)
[2022-07-06] MEDS: Citalopram 20 MG Tab PO SCH (08:12)
[2022-07-06] MEDS: guaiFENesin 600 MG Tab.ER PO SCH ×2 (08:13→19:57)
[2022-07-06] MEDS: Calcium Carbonate 750 MG Tab.Chew PO SCH (08:13)
[2022-07-06] MEDS: Albuterol/Ipratropium 3.0-0.5 MG/3 ML Neb Soln NEB SCH ×2 (08:14→19:55)
[2022-07-06] MEDS: Acetaminophen 500 MG Tab PO SCH ×3 (08:15→19:58)
[2022-07-06] MEDS: Polyethylene Glycol 3350 Powder 510 GM Bot PO SCH (08:15)
[2022-07-06] MEDS: traMADol 50 MG Tab PO SCH (08:16)
[2022-07-06] MEDS: Cyanocobalamin (Vitamin B12) 1,000 MCG Tab PO SCH (08:17)
[2022-07-06] MEDS: Menthol 10%/Methyl Salicylate 15% 85 GM Tube TOP PRN (08:21)
[2022-07-06] MEDS: traMADol 50 MG Tab PO PRN (12:42)
[2022-07-06] MEDS: LEVOTHYROXINE 137 MCG PO SCH (19:56)
[2022-07-06] MEDS: BUPROPION 300 MG PO SCH (19:57)
[2022-07-07] MEDS: Citalopram 20 MG Tab PO SCH (07:19)
[2022-07-07] MEDS: Potassium Chloride 20 MEQ Tab.ER PO SCH ×2 (07:19→17:34)
[2022-07-07] MEDS: Albuterol/Ipratropium 3.0-0.5 MG/3 ML Neb Soln NEB SCH ×2 (07:20→19:52)
[2022-07-07] MEDS: Furosemide 20 MG Tab PO SCH (07:20)
[2022-07-07] MEDS: Calcium Carbonate 750 MG Tab.Chew PO SCH (07:21)
[2022-07-07] MEDS: Polyethylene Glycol 3350 Powder 510 GM Bot PO SCH (07:21)
[2022-07-07] MEDS: guaiFENesin 600 MG Tab.ER PO SCH ×2 (07:23→19:56)
[2022-07-07] MEDS: Acetaminophen 500 MG Tab PO SCH ×3 (07:23→19:57)
[2022-07-07] MEDS: Cyanocobalamin (Vitamin B12) 1,000 MCG Tab PO SCH (07:24)
[2022-07-07] MEDS: traMADol 50 MG Tab PO SCH (07:24)
[2022-07-07] MEDS: Menthol 10%/Methyl Salicylate 15% 85 GM Tube TOP PRN (07:25)
[2022-07-07] MEDS: traMADol 50 MG Tab PO PRN (17:35)
[2022-07-07] MEDS: LEVOTHYROXINE 137 MCG PO SCH (19:55)
[2022-07-07] MEDS: BUPROPION 300 MG PO SCH (19:56)
[2022-07-08] MEDS: Citalopram 20 MG Tab PO SCH (07:47)
[2022-07-08] MEDS: Potassium Chloride 20 MEQ Tab.ER PO SCH ×2 (07:47→17:46)
[2022-07-08] MEDS: Albuterol/Ipratropium 3.0-0.5 MG/3 ML Neb Soln NEB SCH ×2 (07:48→19:35)
[2022-07-08] MEDS: Furosemide 20 MG Tab PO SCH (07:48)
[2022-07-08] MEDS: guaiFENesin 600 MG Tab.ER PO SCH ×2 (07:48→19:36)
[2022-07-08] MEDS: Calcium Carbonate 750 MG Tab.Chew PO SCH (07:49)
[2022-07-08] MEDS: Acetaminophen 500 MG Tab PO SCH ×3 (07:50→19:37)
[2022-07-08] MEDS: Cyanocobalamin (Vitamin B12) 1,000 MCG Tab PO SCH (07:50)
[2022-07-08] MEDS: traMADol 50 MG Tab PO SCH (07:51)
[2022-07-08] MEDS: Polyethylene Glycol 3350 Powder 510 GM Bot PO SCH (07:51)
[2022-07-08] MEDS: LEVOTHYROXINE 137 MCG PO SCH (19:36)
[2022-07-08] MEDS: BUPROPION 300 MG PO SCH (19:36)
[2022-07-08] MEDS: Menthol 10%/Methyl Salicylate 15% 85 GM Tube TOP PRN (19:37)
[2022-07-09] MEDS: Potassium Chloride 20 MEQ Tab.ER PO SCH ×2 (09:07→17:49)
[2022-07-09] MEDS: Citalopram 20 MG Tab PO SCH (09:07)
[2022-07-09] MEDS: Furosemide 20 MG Tab PO SCH (09:07)
[2022-07-09] MEDS: guaiFENesin 600 MG Tab.ER PO SCH ×2 (09:08→19:31)
[2022-07-09] MEDS: Calcium Carbonate 750 MG Tab.Chew PO SCH (09:09)
[2022-07-09] MEDS: Acetaminophen 500 MG Tab PO SCH ×3 (09:10→19:31)
[2022-07-09] MEDS: Albuterol/Ipratropium 3.0-0.5 MG/3 ML Neb Soln NEB SCH ×2 (09:11→19:30)
[2022-07-09] MEDS: Polyethylene Glycol 3350 Powder 510 GM Bot PO SCH (09:12)
[2022-07-09] MEDS: traMADol 50 MG Tab PO SCH (09:13)
[2022-07-09] MEDS: Cyanocobalamin (Vitamin B12) 1,000 MCG Tab PO SCH (09:14)
[2022-07-09] MEDS: Menthol 10%/Methyl Salicylate 15% 85 GM Tube TOP PRN ×2 (09:14→19:32)
[2022-07-09] MEDS: traMADol 50 MG Tab PO PRN (17:51)
[2022-07-09] MEDS: BUPROPION 300 MG PO SCH (19:30)
[2022-07-09] MEDS: LEVOTHYROXINE 137 MCG PO SCH (19:30)
[2022-07-10] MEDS: Albuterol/Ipratropium 3.0-0.5 MG/3 ML Neb Soln NEB SCH ×2 (07:27→19:20)
[2022-07-10] MEDS: Potassium Chloride 20 MEQ Tab.ER PO SCH ×2 (07:28→17:17)
[2022-07-10] MEDS: Citalopram 20 MG Tab PO SCH (07:28)
[2022-07-10] MEDS: Furosemide 20 MG Tab PO SCH (07:28)
[2022-07-10] MEDS: Acetaminophen 500 MG Tab PO SCH ×3 (07:29→19:21)
[2022-07-10] MEDS: Calcium Carbonate 750 MG Tab.Chew PO SCH (07:29)
[2022-07-10] MEDS: guaiFENesin 600 MG Tab.ER PO SCH ×2 (07:29→19:21)
[2022-07-10] MEDS: Cyanocobalamin (Vitamin B12) 1,000 MCG Tab PO SCH (07:29)
[2022-07-10] MEDS: Polyethylene Glycol 3350 Powder 510 GM Bot PO SCH (07:31)
[2022-07-10] MEDS: traMADol 50 MG Tab PO SCH (07:31)
[2022-07-10] MEDS: BUPROPION 300 MG PO SCH (19:21)
[2022-07-10] MEDS: LEVOTHYROXINE 137 MCG PO SCH (19:21)
[2022-07-10] MEDS: Menthol 10%/Methyl Salicylate 15% 85 GM Tube TOP PRN (19:22)
[2022-07-11] MEDS: Citalopram 20 MG Tab PO SCH (07:40)
[2022-07-11] MEDS: Potassium Chloride 20 MEQ Tab.ER PO SCH ×2 (07:40→17:06)
[2022-07-11] MEDS: Polyethylene Glycol 3350 Powder 510 GM Bot PO SCH (07:41)
[2022-07-11] MEDS: Furosemide 20 MG Tab PO SCH (07:41)
[2022-07-11] MEDS: Albuterol/Ipratropium 3.0-0.5 MG/3 ML Neb Soln NEB SCH ×2 (07:41→19:39)
[2022-07-11] MEDS: Cyanocobalamin (Vitamin B12) 1,000 MCG Tab PO SCH (07:41)
[2022-07-11] MEDS: Calcium Carbonate 750 MG Tab.Chew PO SCH (07:41)
[2022-07-11] MEDS: guaiFENesin 600 MG Tab.ER PO SCH ×2 (07:42→19:41)
[2022-07-11] MEDS: Acetaminophen 500 MG Tab PO SCH ×3 (07:42→19:41)
[2022-07-11] MEDS: traMADol 50 MG Tab PO SCH (07:43)
[2022-07-11] MEDS: LEVOTHYROXINE 137 MCG PO SCH (19:40)
[2022-07-11] MEDS: BUPROPION 300 MG PO SCH (19:41)
[2022-07-12] MEDS: Furosemide 20 MG Tab PO SCH (07:37)
[2022-07-12] MEDS: Albuterol/Ipratropium 3.0-0.5 MG/3 ML Neb Soln NEB SCH ×2 (07:37→19:09)
[2022-07-12] MEDS: Potassium Chloride 20 MEQ Tab.ER PO SCH ×2 (07:37→17:07)
[2022-07-12] MEDS: Citalopram 20 MG Tab PO SCH (07:37)
[2022-07-12] MEDS: guaiFENesin 600 MG Tab.ER PO SCH ×2 (07:38→19:10)
[2022-07-12] MEDS: Polyethylene Glycol 3350 Powder 510 GM Bot PO SCH (07:38)
[2022-07-12] MEDS: Calcium Carbonate 750 MG Tab.Chew PO SCH (07:38)
[2022-07-12] MEDS: Acetaminophen 500 MG Tab PO SCH ×3 (07:39→19:10)
[2022-07-12] MEDS: traMADol 50 MG Tab PO SCH (07:39)
[2022-07-12] MEDS: Cyanocobalamin (Vitamin B12) 1,000 MCG Tab PO SCH (07:40)
[2022-07-12] MEDS: BUPROPION 300 MG PO SCH (19:09)
[2022-07-12] MEDS: LEVOTHYROXINE 137 MCG PO SCH (19:09)
[2022-07-13] MEDS: Polyethylene Glycol 3350 Powder 510 GM Bot PO SCH (07:32)
[2022-07-13] MEDS: traMADol 50 MG Tab PO SCH (07:33)
[2022-07-13] MEDS: Acetaminophen 500 MG Tab PO SCH ×3 (07:33→19:03)
[2022-07-13] MEDS: Cyanocobalamin (Vitamin B12) 1,000 MCG Tab PO SCH (07:34)
[2022-07-13] MEDS: Potassium Chloride 20 MEQ Tab.ER PO SCH ×2 (07:35→17:07)
[2022-07-13] MEDS: Albuterol/Ipratropium 3.0-0.5 MG/3 ML Neb Soln NEB SCH ×2 (07:35→19:03)
[2022-07-13] MEDS: Citalopram 20 MG Tab PO SCH (07:35)
[2022-07-13] MEDS: Furosemide 20 MG Tab PO SCH (07:35)
[2022-07-13] MEDS: guaiFENesin 600 MG Tab.ER PO SCH ×2 (07:36→19:03)
[2022-07-13] MEDS: Calcium Carbonate 750 MG Tab.Chew PO SCH (07:36)
[2022-07-13] MEDS: LEVOTHYROXINE 137 MCG PO SCH (19:03)
[2022-07-13] MEDS: BUPROPION 300 MG PO SCH (19:03)
[2022-07-14] MEDS: traMADol 50 MG Tab PO SCH (07:12)
[2022-07-14] MEDS: Polyethylene Glycol 3350 Powder 510 GM Bot PO SCH (07:12)
[2022-07-14] MEDS: Acetaminophen 500 MG Tab PO SCH ×3 (07:13→19:03)
[2022-07-14] MEDS: Calcium Carbonate 750 MG Tab.Chew PO SCH (07:15)
[2022-07-14] MEDS: Citalopram 20 MG Tab PO SCH (07:15)
[2022-07-14] MEDS: Albuterol/Ipratropium 3.0-0.5 MG/3 ML Neb Soln NEB SCH ×2 (07:15→19:03)
[2022-07-14] MEDS: guaiFENesin 600 MG Tab.ER PO SCH ×2 (07:15→19:03)
[2022-07-14] MEDS: Potassium Chloride 20 MEQ Tab.ER PO SCH ×2 (07:15→17:09)
[2022-07-14] MEDS: Cyanocobalamin (Vitamin B12) 1,000 MCG Tab PO SCH (07:16)
[2022-07-14] MEDS: Furosemide 20 MG Tab PO SCH (07:16)
[2022-07-14] MEDS: LEVOTHYROXINE 137 MCG PO SCH (19:02)
[2022-07-14] MEDS: BUPROPION 300 MG PO SCH (19:02)
[2022-07-15] MEDS: Citalopram 20 MG Tab PO SCH (07:20)
[2022-07-15] MEDS: Albuterol/Ipratropium 3.0-0.5 MG/3 ML Neb Soln NEB SCH ×2 (07:20→19:24)
[2022-07-15] MEDS: Polyethylene Glycol 3350 Powder 510 GM Bot PO SCH (07:20)
[2022-07-15] MEDS: guaiFENesin 600 MG Tab.ER PO SCH ×2 (07:21→19:25)
[2022-07-15] MEDS: Calcium Carbonate 750 MG Tab.Chew PO SCH (07:21)
[2022-07-15] MEDS: Furosemide 20 MG Tab PO SCH (07:21)
[2022-07-15] MEDS: Potassium Chloride 20 MEQ Tab.ER PO SCH ×2 (07:21→17:13)
[2022-07-15] MEDS: Cyanocobalamin (Vitamin B12) 1,000 MCG Tab PO SCH (07:21)
[2022-07-15] MEDS: traMADol 50 MG Tab PO SCH (07:22)
[2022-07-15] MEDS: Acetaminophen 500 MG Tab PO SCH ×3 (07:22→19:25)
[2022-07-15] MEDS: LEVOTHYROXINE 137 MCG PO SCH (19:24)
[2022-07-15] MEDS: BUPROPION 300 MG PO SCH (19:24)
[2022-07-15] MEDS: Menthol 10%/Methyl Salicylate 15% 85 GM Tube TOP PRN (19:26)
[2022-07-16] MEDS: Albuterol/Ipratropium 3.0-0.5 MG/3 ML Neb Soln NEB SCH ×2 (07:23→19:41)
[2022-07-16] MEDS: Citalopram 20 MG Tab PO SCH (07:24)
[2022-07-16] MEDS: Potassium Chloride 20 MEQ Tab.ER PO SCH ×2 (07:24→17:03)
[2022-07-16] MEDS: Cyanocobalamin (Vitamin B12) 1,000 MCG Tab PO SCH (07:25)
[2022-07-16] MEDS: Calcium Carbonate 750 MG Tab.Chew PO SCH (07:25)
[2022-07-16] MEDS: guaiFENesin 600 MG Tab.ER PO SCH ×2 (07:25→19:41)
[2022-07-16] MEDS: Furosemide 20 MG Tab PO SCH (07:25)
[2022-07-16] MEDS: Acetaminophen 500 MG Tab PO SCH ×3 (07:25→19:42)
[2022-07-16] MEDS: traMADol 50 MG Tab PO SCH (07:26)
[2022-07-16] MEDS: Polyethylene Glycol 3350 Powder 510 GM Bot PO SCH (07:26)
[2022-07-16] MEDS: LEVOTHYROXINE 137 MCG PO SCH (19:41)
[2022-07-16] MEDS: BUPROPION 300 MG PO SCH (19:41)
[2022-07-16] MEDS: Menthol 10%/Methyl Salicylate 15% 85 GM Tube TOP PRN (19:42)
[2022-07-17] MEDS: Polyethylene Glycol 3350 Powder 510 GM Bot PO SCH (07:31)
[2022-07-17] MEDS: Acetaminophen 500 MG Tab PO SCH ×3 (07:32→19:33)
[2022-07-17] MEDS: traMADol 50 MG Tab PO SCH (07:32)
[2022-07-17] MEDS: Cyanocobalamin (Vitamin B12) 1,000 MCG Tab PO SCH (07:33)
[2022-07-17] MEDS: Albuterol/Ipratropium 3.0-0.5 MG/3 ML Neb Soln NEB SCH ×2 (07:33→19:32)
[2022-07-17] MEDS: Citalopram 20 MG Tab PO SCH (07:33)
[2022-07-17] MEDS: Potassium Chloride 20 MEQ Tab.ER PO SCH ×2 (07:34→17:21)
[2022-07-17] MEDS: Calcium Carbonate 750 MG Tab.Chew PO SCH (07:34)
[2022-07-17] MEDS: Furosemide 20 MG Tab PO SCH (07:34)
[2022-07-17] MEDS: guaiFENesin 600 MG Tab.ER PO SCH ×2 (07:34→19:33)
[2022-07-17] MEDS: BUPROPION 300 MG PO SCH (19:32)
[2022-07-17] MEDS: LEVOTHYROXINE 137 MCG PO SCH (19:32)
[2022-07-17] MEDS: Menthol 10%/Methyl Salicylate 15% 85 GM Tube TOP PRN (19:33)
[2022-07-18] MEDS: Polyethylene Glycol 3350 Powder 510 GM Bot PO SCH (07:26)
[2022-07-18] MEDS: Acetaminophen 500 MG Tab PO SCH ×3 (07:28→19:12)
[2022-07-18] MEDS: traMADol 50 MG Tab PO SCH (07:28)
[2022-07-18] MEDS: Albuterol/Ipratropium 3.0-0.5 MG/3 ML Neb Soln NEB SCH ×2 (07:29→19:11)
[2022-07-18] MEDS: Cyanocobalamin (Vitamin B12) 1,000 MCG Tab PO SCH (07:29)
[2022-07-18] MEDS: Citalopram 20 MG Tab PO SCH (07:29)
[2022-07-18] MEDS: guaiFENesin 600 MG Tab.ER PO SCH ×2 (07:30→19:12)
[2022-07-18] MEDS: Potassium Chloride 20 MEQ Tab.ER PO SCH ×2 (07:30→17:09)
[2022-07-18] MEDS: Calcium Carbonate 750 MG Tab.Chew PO SCH (07:30)
[2022-07-18] MEDS: Furosemide 20 MG Tab PO SCH (07:30)
[2022-07-18] MEDS: LEVOTHYROXINE 137 MCG PO SCH (19:11)
[2022-07-18] MEDS: BUPROPION 300 MG PO SCH (19:11)
[2022-07-19] MEDS: Citalopram 20 MG Tab PO SCH (07:10)
[2022-07-19] MEDS: Potassium Chloride 20 MEQ Tab.ER PO SCH ×2 (07:11→18:13)
[2022-07-19] MEDS: Albuterol/Ipratropium 3.0-0.5 MG/3 ML Neb Soln NEB SCH ×2 (07:11→19:35)
[2022-07-19] MEDS: Furosemide 20 MG Tab PO SCH (07:12)
[2022-07-19] MEDS: Calcium Carbonate 750 MG Tab.Chew PO SCH (07:12)
[2022-07-19] MEDS: guaiFENesin 600 MG Tab.ER PO SCH ×2 (07:12→19:35)
[2022-07-19] MEDS: Cyanocobalamin (Vitamin B12) 1,000 MCG Tab PO SCH (07:13)
[2022-07-19] MEDS: Acetaminophen 500 MG Tab PO SCH ×3 (07:13→19:36)
[2022-07-19] MEDS: traMADol 50 MG Tab PO SCH (07:14)
[2022-07-19] MEDS: Polyethylene Glycol 3350 Powder 510 GM Bot PO SCH (07:15)
[2022-07-19] MEDS: Menthol 10%/Methyl Salicylate 15% 85 GM Tube TOP PRN (07:15)
[2022-07-19] MEDS: BUPROPION 300 MG PO SCH (19:36)
[2022-07-19] MEDS: LEVOTHYROXINE 137 MCG PO SCH (19:36)
[2022-07-20] MEDS: Citalopram 20 MG Tab PO SCH (07:30)
[2022-07-20] MEDS: Albuterol/Ipratropium 3.0-0.5 MG/3 ML Neb Soln NEB SCH ×2 (07:30→19:22)
[2022-07-20] MEDS: Potassium Chloride 20 MEQ Tab.ER PO SCH ×2 (07:30→17:08)
[2022-07-20] MEDS: guaiFENesin 600 MG Tab.ER PO SCH ×2 (07:31→19:23)
[2022-07-20] MEDS: Furosemide 20 MG Tab PO SCH (07:31)
[2022-07-20] MEDS: Polyethylene Glycol 3350 Powder 510 GM Bot PO SCH (07:31)
[2022-07-20] MEDS: Calcium Carbonate 750 MG Tab.Chew PO SCH (07:31)
[2022-07-20] MEDS: Acetaminophen 500 MG Tab PO SCH ×3 (07:32→19:23)
[2022-07-20] MEDS: traMADol 50 MG Tab PO SCH (07:32)
[2022-07-20] MEDS: Cyanocobalamin (Vitamin B12) 1,000 MCG Tab PO SCH (07:33)
[2022-07-20] MEDS: LEVOTHYROXINE 137 MCG PO SCH (19:22)
[2022-07-20] MEDS: Menthol 10%/Methyl Salicylate 15% 85 GM Tube TOP PRN (19:23)
[2022-07-20] MEDS: BUPROPION 300 MG PO SCH (19:23)
[2022-07-21] MEDS: Citalopram 20 MG Tab PO SCH (07:40)
[2022-07-21] MEDS: Potassium Chloride 20 MEQ Tab.ER PO SCH ×2 (07:40→17:19)
[2022-07-21] MEDS: Albuterol/Ipratropium 3.0-0.5 MG/3 ML Neb Soln NEB SCH ×2 (07:40→19:07)
[2022-07-21] MEDS: Polyethylene Glycol 3350 Powder 510 GM Bot PO SCH (07:41)
[2022-07-21] MEDS: Furosemide 20 MG Tab PO SCH (07:41)
[2022-07-21] MEDS: Calcium Carbonate 750 MG Tab.Chew PO SCH (07:41)
[2022-07-21] MEDS: Acetaminophen 500 MG Tab PO SCH ×3 (07:42→19:08)
[2022-07-21] MEDS: Cyanocobalamin (Vitamin B12) 1,000 MCG Tab PO SCH (07:42)
[2022-07-21] MEDS: guaiFENesin 600 MG Tab.ER PO SCH ×2 (07:42→19:07)
[2022-07-21] MEDS: traMADol 50 MG Tab PO SCH (07:42)
[2022-07-21] MEDS: BUPROPION 300 MG PO SCH (19:07)
[2022-07-21] MEDS: LEVOTHYROXINE 137 MCG PO SCH (19:07)
[2022-07-21] MEDS: Menthol 10%/Methyl Salicylate 15% 85 GM Tube TOP PRN (19:08)
[2022-07-22] MEDS: Citalopram 20 MG Tab PO SCH (07:26)
[2022-07-22] MEDS: Potassium Chloride 20 MEQ Tab.ER PO SCH ×2 (07:27→16:59)
[2022-07-22] MEDS: Albuterol/Ipratropium 3.0-0.5 MG/3 ML Neb Soln NEB SCH ×2 (07:27→19:07)
[2022-07-22] MEDS: Furosemide 20 MG Tab PO SCH (07:27)
[2022-07-22] MEDS: Acetaminophen 500 MG Tab PO SCH ×3 (07:28→19:09)
[2022-07-22] MEDS: traMADol 50 MG Tab PO SCH (07:28)
[2022-07-22] MEDS: guaiFENesin 600 MG Tab.ER PO SCH ×2 (07:29→19:08)
[2022-07-22] MEDS: Calcium Carbonate 750 MG Tab.Chew PO SCH (07:29)
[2022-07-22] MEDS: Polyethylene Glycol 3350 Powder 510 GM Bot PO SCH (07:29)
[2022-07-22] MEDS: Cyanocobalamin (Vitamin B12) 1,000 MCG Tab PO SCH (07:30)
[2022-07-22] MEDS: BUPROPION 300 MG PO SCH (19:08)
[2022-07-22] MEDS: LEVOTHYROXINE 137 MCG PO SCH (19:08)
[2022-07-23] MEDS: traMADol 50 MG Tab PO SCH (07:43)
[2022-07-23] MEDS: Acetaminophen 500 MG Tab PO SCH ×3 (07:43→19:10)
[2022-07-23] MEDS: Cyanocobalamin (Vitamin B12) 1,000 MCG Tab PO SCH (07:44)
[2022-07-23] MEDS: Polyethylene Glycol 3350 Powder 510 GM Bot PO SCH (07:44)
[2022-07-23] MEDS: Citalopram 20 MG Tab PO SCH (07:44)
[2022-07-23] MEDS: guaiFENesin 600 MG Tab.ER PO SCH ×2 (07:45→19:10)
[2022-07-23] MEDS: Furosemide 20 MG Tab PO SCH (07:45)
[2022-07-23] MEDS: Potassium Chloride 20 MEQ Tab.ER PO SCH ×2 (07:45→17:24)
[2022-07-23] MEDS: Albuterol/Ipratropium 3.0-0.5 MG/3 ML Neb Soln NEB SCH ×2 (07:45→19:09)
[2022-07-23] MEDS: Calcium Carbonate 750 MG Tab.Chew PO SCH (07:46)
[2022-07-23] MEDS: BUPROPION 300 MG PO SCH (19:10)
[2022-07-23] MEDS: LEVOTHYROXINE 137 MCG PO SCH (19:10)
[2022-07-24] MEDS: Potassium Chloride 20 MEQ Tab.ER PO SCH ×2 (09:01→17:29)
[2022-07-24] MEDS: Albuterol/Ipratropium 3.0-0.5 MG/3 ML Neb Soln NEB SCH ×2 (09:01→19:12)
[2022-07-24] MEDS: Furosemide 20 MG Tab PO SCH (09:01)
[2022-07-24] MEDS: Citalopram 20 MG Tab PO SCH (09:01)
[2022-07-24] MEDS: Polyethylene Glycol 3350 Powder 510 GM Bot PO SCH (09:02)
[2022-07-24] MEDS: Calcium Carbonate 750 MG Tab.Chew PO SCH (09:02)
[2022-07-24] MEDS: Cyanocobalamin (Vitamin B12) 1,000 MCG Tab PO SCH (09:02)
[2022-07-24] MEDS: traMADol 50 MG Tab PO SCH (09:02)
[2022-07-24] MEDS: Acetaminophen 500 MG Tab PO SCH ×3 (09:02→19:12)
[2022-07-24] MEDS: guaiFENesin 600 MG Tab.ER PO SCH ×2 (09:02→19:12)
[2022-07-24] MEDS: BUPROPION 300 MG PO SCH (19:12)
[2022-07-24] MEDS: LEVOTHYROXINE 137 MCG PO SCH (19:12)
[2022-07-24] MEDS: Menthol 10%/Methyl Salicylate 15% 85 GM Tube TOP PRN (19:13)
[2022-07-25] MEDS: Furosemide 20 MG Tab PO SCH (07:44)
[2022-07-25] MEDS: Citalopram 20 MG Tab PO SCH (07:44)
[2022-07-25] MEDS: Potassium Chloride 20 MEQ Tab.ER PO SCH ×2 (07:44→17:43)
[2022-07-25] MEDS: Calcium Carbonate 750 MG Tab.Chew PO SCH (07:45)
[2022-07-25] MEDS: Albuterol/Ipratropium 3.0-0.5 MG/3 ML Neb Soln NEB SCH ×2 (07:45→19:21)
[2022-07-25] MEDS: guaiFENesin 600 MG Tab.ER PO SCH ×2 (07:45→19:22)
[2022-07-25] MEDS: Acetaminophen 500 MG Tab PO SCH ×3 (07:46→19:22)
[2022-07-25] MEDS: traMADol 50 MG Tab PO SCH (07:46)
[2022-07-25] MEDS: Cyanocobalamin (Vitamin B12) 1,000 MCG Tab PO SCH (07:46)
[2022-07-25] MEDS: Polyethylene Glycol 3350 Powder 510 GM Bot PO SCH (07:47)
[2022-07-25] MEDS: Menthol 10%/Methyl Salicylate 15% 85 GM Tube TOP PRN ×2 (07:48→19:23)
[2022-07-25] MEDS: LEVOTHYROXINE 137 MCG PO SCH (19:21)
[2022-07-25] MEDS: BUPROPION 300 MG PO SCH (19:22)
[2022-07-26] MEDS: Potassium Chloride 20 MEQ Tab.ER PO SCH ×2 (07:42→17:19)
[2022-07-26] MEDS: Citalopram 20 MG Tab PO SCH (07:42)
[2022-07-26] MEDS: Polyethylene Glycol 3350 Powder 510 GM Bot PO SCH (07:43)
[2022-07-26] MEDS: Albuterol/Ipratropium 3.0-0.5 MG/3 ML Neb Soln NEB SCH ×2 (07:43→19:42)
[2022-07-26] MEDS: Calcium Carbonate 750 MG Tab.Chew PO SCH (07:43)
[2022-07-26] MEDS: Furosemide 20 MG Tab PO SCH (07:43)
[2022-07-26] MEDS: Cyanocobalamin (Vitamin B12) 1,000 MCG Tab PO SCH (07:44)
[2022-07-26] MEDS: Acetaminophen 500 MG Tab PO SCH ×3 (07:44→19:44)
[2022-07-26] MEDS: guaiFENesin 600 MG Tab.ER PO SCH ×2 (07:44→19:44)
[2022-07-26] MEDS: traMADol 50 MG Tab PO SCH (07:45)
[2022-07-26] MEDS: LEVOTHYROXINE 137 MCG PO SCH (19:43)
[2022-07-26] MEDS: BUPROPION 300 MG PO SCH (19:44)
[2022-07-27] MEDS: Citalopram 20 MG Tab PO SCH (07:09)
[2022-07-27] MEDS: Potassium Chloride 20 MEQ Tab.ER PO SCH ×2 (07:09→17:31)
[2022-07-27] MEDS: Furosemide 20 MG Tab PO SCH (07:09)
[2022-07-27] MEDS: Albuterol/Ipratropium 3.0-0.5 MG/3 ML Neb Soln NEB SCH ×2 (07:10→19:59)
[2022-07-27] MEDS: Polyethylene Glycol 3350 Powder 510 GM Bot PO SCH (07:10)
[2022-07-27] MEDS: guaiFENesin 600 MG Tab.ER PO SCH ×2 (07:11→20:01)
[2022-07-27] MEDS: Calcium Carbonate 750 MG Tab.Chew PO SCH (07:11)
[2022-07-27] MEDS: Cyanocobalamin (Vitamin B12) 1,000 MCG Tab PO SCH (07:12)
[2022-07-27] MEDS: Acetaminophen 500 MG Tab PO SCH ×3 (07:12→20:01)
[2022-07-27] MEDS: traMADol 50 MG Tab PO SCH (07:13)
[2022-07-27] MEDS: LEVOTHYROXINE 137 MCG PO SCH (20:01)
[2022-07-27] MEDS: BUPROPION 300 MG PO SCH (20:01)
[2022-07-28] MEDS: Furosemide 20 MG Tab PO SCH (07:16)
[2022-07-28] MEDS: Citalopram 20 MG Tab PO SCH (07:16)
[2022-07-28] MEDS: Potassium Chloride 20 MEQ Tab.ER PO SCH ×2 (07:16→17:00)
[2022-07-28] MEDS: Polyethylene Glycol 3350 Powder 510 GM Bot PO SCH (07:17)
[2022-07-28] MEDS: guaiFENesin 600 MG Tab.ER PO SCH ×2 (07:18→19:15)
[2022-07-28] MEDS: Calcium Carbonate 750 MG Tab.Chew PO SCH (07:18)
[2022-07-28] MEDS: Acetaminophen 500 MG Tab PO SCH ×3 (07:18→19:15)
[2022-07-28] MEDS: traMADol 50 MG Tab PO SCH (07:19)
[2022-07-28] MEDS: Cyanocobalamin (Vitamin B12) 1,000 MCG Tab PO SCH (07:20)
[2022-07-28] MEDS: Albuterol/Ipratropium 3.0-0.5 MG/3 ML Neb Soln NEB SCH ×2 (08:54→19:14)
[2022-07-28] MEDS: LEVOTHYROXINE 137 MCG PO SCH (19:14)
[2022-07-28] MEDS: BUPROPION 300 MG PO SCH (19:15)
[2022-07-28] MEDS: Menthol 10%/Methyl Salicylate 15% 85 GM Tube TOP PRN (19:16)
[2022-07-29] MEDS: Potassium Chloride 20 MEQ Tab.ER PO SCH ×2 (07:07→17:11)
[2022-07-29] MEDS: Albuterol/Ipratropium 3.0-0.5 MG/3 ML Neb Soln NEB SCH ×2 (07:07→19:33)
[2022-07-29] MEDS: Citalopram 20 MG Tab PO SCH (07:07)
[2022-07-29] MEDS: Furosemide 20 MG Tab PO SCH (07:08)
[2022-07-29] MEDS: Calcium Carbonate 750 MG Tab.Chew PO SCH (07:09)
[2022-07-29] MEDS: Acetaminophen 500 MG Tab PO SCH ×3 (07:09→19:35)
[2022-07-29] MEDS: guaiFENesin 600 MG Tab.ER PO SCH ×2 (07:09→19:34)
[2022-07-29] MEDS: Cyanocobalamin (Vitamin B12) 1,000 MCG Tab PO SCH (07:09)
[2022-07-29] MEDS: Polyethylene Glycol 3350 Powder 510 GM Bot PO SCH (07:09)
[2022-07-29] MEDS: traMADol 50 MG Tab PO SCH (07:10)
[2022-07-29] MEDS: LEVOTHYROXINE 137 MCG PO SCH (19:34)
[2022-07-29] MEDS: BUPROPION 300 MG PO SCH (19:34)
[2022-07-29] MEDS: Menthol 10%/Methyl Salicylate 15% 85 GM Tube TOP PRN (19:35)
[2022-07-30] MEDS: traMADol 50 MG Tab PO SCH (07:42)
[2022-07-30] MEDS: Acetaminophen 500 MG Tab PO SCH ×3 (07:43→20:40)
[2022-07-30] MEDS: Citalopram 20 MG Tab PO SCH (07:44)
[2022-07-30] MEDS: Albuterol/Ipratropium 3.0-0.5 MG/3 ML Neb Soln NEB SCH ×2 (07:44→20:38)
[2022-07-30] MEDS: Cyanocobalamin (Vitamin B12) 1,000 MCG Tab PO SCH (07:44)
[2022-07-30] MEDS: Polyethylene Glycol 3350 Powder 510 GM Bot PO SCH (07:44)
[2022-07-30] MEDS: guaiFENesin 600 MG Tab.ER PO SCH ×2 (07:44→20:40)
[2022-07-30] MEDS: Potassium Chloride 20 MEQ Tab.ER PO SCH ×2 (07:45→17:21)
[2022-07-30] MEDS: Furosemide 20 MG Tab PO SCH (07:45)
[2022-07-30] MEDS: Calcium Carbonate 750 MG Tab.Chew PO SCH (07:45)
[2022-07-30] MEDS: Menthol 10%/Methyl Salicylate 15% 85 GM Tube TOP PRN (12:14)
[2022-07-30] MEDS: traMADol 50 MG Tab PO PRN (12:15)
[2022-07-30] MEDS: LEVOTHYROXINE 137 MCG PO SCH (20:39)
[2022-07-30] MEDS: BUPROPION 300 MG PO SCH (20:40)
[2022-07-31] MEDS: traMADol 50 MG Tab PO SCH (07:13)
[2022-07-31] MEDS: Cyanocobalamin (Vitamin B12) 1,000 MCG Tab PO SCH (07:14)
[2022-07-31] MEDS: Acetaminophen 500 MG Tab PO SCH ×3 (07:14→19:46)
[2022-07-31] MEDS: Calcium Carbonate 750 MG Tab.Chew PO SCH (07:14)
[2022-07-31] MEDS: guaiFENesin 600 MG Tab.ER PO SCH ×2 (07:14→19:45)
[2022-07-31] MEDS: Polyethylene Glycol 3350 Powder 510 GM Bot PO SCH (07:15)
[2022-07-31] MEDS: Albuterol/Ipratropium 3.0-0.5 MG/3 ML Neb Soln NEB SCH ×2 (07:15→19:43)
[2022-07-31] MEDS: Citalopram 20 MG Tab PO SCH (07:15)
[2022-07-31] MEDS: Potassium Chloride 20 MEQ Tab.ER PO SCH ×2 (07:15→17:21)
[2022-07-31] MEDS: Furosemide 20 MG Tab PO SCH (07:16)
[2022-07-31] MEDS: LEVOTHYROXINE 137 MCG PO SCH (19:45)
[2022-07-31] MEDS: BUPROPION 300 MG PO SCH (19:46)
[2022-08-01] MEDS: Citalopram 20 MG Tab PO SCH (07:04)
[2022-08-01] MEDS: Albuterol/Ipratropium 3.0-0.5 MG/3 ML Neb Soln NEB SCH ×2 (07:04→19:19)
[2022-08-01] MEDS: Polyethylene Glycol 3350 Powder 510 GM Bot PO SCH (07:05)
[2022-08-01] MEDS: guaiFENesin 600 MG Tab.ER PO SCH ×2 (07:05→19:20)
[2022-08-01] MEDS: Furosemide 20 MG Tab PO SCH (07:05)
[2022-08-01] MEDS: Potassium Chloride 20 MEQ Tab.ER PO SCH ×2 (07:05→17:16)
[2022-08-01] MEDS: Calcium Carbonate 750 MG Tab.Chew PO SCH (07:05)
[2022-08-01] MEDS: Acetaminophen 500 MG Tab PO SCH ×3 (07:06→19:20)
[2022-08-01] MEDS: Cyanocobalamin (Vitamin B12) 1,000 MCG Tab PO SCH (07:08)
[2022-08-01] MEDS: traMADol 50 MG Tab PO SCH (08:45)
[2022-08-01] MEDS: LEVOTHYROXINE 137 MCG PO SCH (19:20)
[2022-08-01] MEDS: BUPROPION 300 MG PO SCH (19:20)
[2022-08-01] MEDS: Menthol 10%/Methyl Salicylate 15% 85 GM Tube TOP PRN (19:21)
[2022-08-02] MEDS: Polyethylene Glycol 3350 Powder 510 GM Bot PO SCH (07:15)
[2022-08-02] MEDS: Acetaminophen 500 MG Tab PO SCH ×3 (07:16→19:13)
[2022-08-02] MEDS: traMADol 50 MG Tab PO SCH (07:16)
[2022-08-02] MEDS: Calcium Carbonate 750 MG Tab.Chew PO SCH (07:17)
[2022-08-02] MEDS: Cyanocobalamin (Vitamin B12) 1,000 MCG Tab PO SCH (07:17)
[2022-08-02] MEDS: guaiFENesin 600 MG Tab.ER PO SCH ×2 (07:17→19:13)
[2022-08-02] MEDS: Potassium Chloride 20 MEQ Tab.ER PO SCH ×2 (07:18→17:05)
[2022-08-02] MEDS: Furosemide 20 MG Tab PO SCH (07:18)
[2022-08-02] MEDS: Albuterol/Ipratropium 3.0-0.5 MG/3 ML Neb Soln NEB SCH ×2 (07:18→19:12)
[2022-08-02] MEDS: Citalopram 20 MG Tab PO SCH (07:18)
[2022-08-02] MEDS: BUPROPION 300 MG PO SCH (19:12)
[2022-08-02] MEDS: LEVOTHYROXINE 137 MCG PO SCH (19:12)
[2022-08-03] MEDS: traMADol 50 MG Tab PO SCH (07:20)
[2022-08-03] MEDS: guaiFENesin 600 MG Tab.ER PO SCH ×2 (07:21→19:09)
[2022-08-03] MEDS: Acetaminophen 500 MG Tab PO SCH ×3 (07:21→19:10)
[2022-08-03] MEDS: Cyanocobalamin (Vitamin B12) 1,000 MCG Tab PO SCH (07:21)
[2022-08-03] MEDS: Citalopram 20 MG Tab PO SCH (07:22)
[2022-08-03] MEDS: Polyethylene Glycol 3350 Powder 510 GM Bot PO SCH (07:22)
[2022-08-03] MEDS: Calcium Carbonate 750 MG Tab.Chew PO SCH (07:22)
[2022-08-03] MEDS: Albuterol/Ipratropium 3.0-0.5 MG/3 ML Neb Soln NEB SCH ×2 (07:22→19:10)
[2022-08-03] MEDS: Furosemide 20 MG Tab PO SCH (07:23)
[2022-08-03] MEDS: Potassium Chloride 20 MEQ Tab.ER PO SCH ×2 (07:23→17:08)
[2022-08-03] MEDS: LEVOTHYROXINE 137 MCG PO SCH (19:09)
[2022-08-03] MEDS: BUPROPION 300 MG PO SCH (19:09)
[2022-08-04] MEDS: Albuterol/Ipratropium 3.0-0.5 MG/3 ML Neb Soln NEB SCH ×2 (07:10→19:13)
[2022-08-04] MEDS: traMADol 50 MG Tab PO SCH (07:11)
[2022-08-04] MEDS: Polyethylene Glycol 3350 Powder 510 GM Bot PO SCH (07:11)
[2022-08-04] MEDS: guaiFENesin 600 MG Tab.ER PO SCH ×2 (07:12→19:11)
[2022-08-04] MEDS: Cyanocobalamin (Vitamin B12) 1,000 MCG Tab PO SCH (07:12)
[2022-08-04] MEDS: Acetaminophen 500 MG Tab PO SCH ×3 (07:12→19:11)
[2022-08-04] MEDS: Furosemide 20 MG Tab PO SCH (07:13)
[2022-08-04] MEDS: Calcium Carbonate 750 MG Tab.Chew PO SCH (07:13)
[2022-08-04] MEDS: Citalopram 20 MG Tab PO SCH (07:13)
[2022-08-04] MEDS: Potassium Chloride 20 MEQ Tab.ER PO SCH ×2 (07:13→17:15)
[2022-08-04] MEDS: LEVOTHYROXINE 137 MCG PO SCH (19:11)
[2022-08-04] MEDS: BUPROPION 300 MG PO SCH (19:11)
[2022-08-05] MEDS: Menthol 10%/Methyl Salicylate 15% 85 GM Tube TOP PRN ×2 (07:25→19:17)
[2022-08-05] MEDS: traMADol 50 MG Tab PO SCH (07:25)
[2022-08-05] MEDS: Calcium Carbonate 750 MG Tab.Chew PO SCH (07:26)
[2022-08-05] MEDS: Acetaminophen 500 MG Tab PO SCH ×3 (07:26→19:17)
[2022-08-05] MEDS: guaiFENesin 600 MG Tab.ER PO SCH ×2 (07:26→19:17)
[2022-08-05] MEDS: Cyanocobalamin (Vitamin B12) 1,000 MCG Tab PO SCH (07:27)
[2022-08-05] MEDS: Polyethylene Glycol 3350 Powder 510 GM Bot PO SCH (07:27)
[2022-08-05] MEDS: Potassium Chloride 20 MEQ Tab.ER PO SCH ×2 (07:28→17:23)
[2022-08-05] MEDS: Furosemide 20 MG Tab PO SCH (07:28)
[2022-08-05] MEDS: Albuterol/Ipratropium 3.0-0.5 MG/3 ML Neb Soln NEB SCH ×2 (07:28→19:16)
[2022-08-05] MEDS: Citalopram 20 MG Tab PO SCH (07:28)
[2022-08-05] MEDS: BUPROPION 300 MG PO SCH (19:16)
[2022-08-05] MEDS: LEVOTHYROXINE 137 MCG PO SCH (19:16)
[2022-08-06] MEDS: Menthol 10%/Methyl Salicylate 15% 85 GM Tube TOP PRN (01:43)
[2022-08-06] MEDS: Albuterol/Ipratropium 3.0-0.5 MG/3 ML Neb Soln NEB SCH ×2 (07:33→20:38)
[2022-08-06] MEDS: Citalopram 20 MG Tab PO SCH (07:33)
[2022-08-06] MEDS: Potassium Chloride 20 MEQ Tab.ER PO SCH ×2 (07:33→17:04)
[2022-08-06] MEDS: guaiFENesin 600 MG Tab.ER PO SCH ×2 (07:34→20:39)
[2022-08-06] MEDS: Furosemide 20 MG Tab PO SCH (07:34)
[2022-08-06] MEDS: Calcium Carbonate 750 MG Tab.Chew PO SCH (07:34)
[2022-08-06] MEDS: Polyethylene Glycol 3350 Powder 510 GM Bot PO SCH (07:34)
[2022-08-06] MEDS: traMADol 50 MG Tab PO SCH (07:35)
[2022-08-06] MEDS: Cyanocobalamin (Vitamin B12) 1,000 MCG Tab PO SCH (07:35)
[2022-08-06] MEDS: Acetaminophen 500 MG Tab PO SCH ×3 (07:35→20:40)
[2022-08-06] MEDS: BUPROPION 300 MG PO SCH (20:39)
[2022-08-06] MEDS: LEVOTHYROXINE 137 MCG PO SCH (20:39)
[2022-08-07] MEDS: Polyethylene Glycol 3350 Powder 510 GM Bot PO SCH (07:20)
[2022-08-07] MEDS: traMADol 50 MG Tab PO SCH (07:20)
[2022-08-07] MEDS: Cyanocobalamin (Vitamin B12) 1,000 MCG Tab PO SCH (07:23)
[2022-08-07] MEDS: Calcium Carbonate 750 MG Tab.Chew PO SCH (07:23)
[2022-08-07] MEDS: guaiFENesin 600 MG Tab.ER PO SCH ×2 (07:23→19:42)
[2022-08-07] MEDS: Acetaminophen 500 MG Tab PO SCH ×3 (07:23→19:42)
[2022-08-07] MEDS: Albuterol/Ipratropium 3.0-0.5 MG/3 ML Neb Soln NEB SCH ×2 (07:24→19:41)
[2022-08-07] MEDS: Potassium Chloride 20 MEQ Tab.ER PO SCH ×2 (07:24→17:00)
[2022-08-07] MEDS: Citalopram 20 MG Tab PO SCH (07:24)
[2022-08-07] MEDS: Furosemide 20 MG Tab PO SCH (07:25)
[2022-08-07] MEDS: LEVOTHYROXINE 137 MCG PO SCH (19:41)
[2022-08-07] MEDS: BUPROPION 300 MG PO SCH (19:42)
[2022-08-08] MEDS: Potassium Chloride 20 MEQ Tab.ER PO SCH ×2 (07:24→17:45)
[2022-08-08] MEDS: Furosemide 20 MG Tab PO SCH (07:25)
[2022-08-08] MEDS: Citalopram 20 MG Tab PO SCH (07:25)
[2022-08-08] MEDS: Albuterol/Ipratropium 3.0-0.5 MG/3 ML Neb Soln NEB SCH ×2 (07:25→19:03)
[2022-08-08] MEDS: Polyethylene Glycol 3350 Powder 510 GM Bot PO SCH (07:26)
[2022-08-08] MEDS: guaiFENesin 600 MG Tab.ER PO SCH ×2 (07:27→19:04)
[2022-08-08] MEDS: Calcium Carbonate 750 MG Tab.Chew PO SCH (07:27)
[2022-08-08] MEDS: Acetaminophen 500 MG Tab PO SCH ×3 (07:28→19:04)
[2022-08-08] MEDS: Cyanocobalamin (Vitamin B12) 1,000 MCG Tab PO SCH (07:29)
[2022-08-08] MEDS: traMADol 50 MG Tab PO SCH (07:29)
[2022-08-08] MEDS: BUPROPION 300 MG PO SCH (19:04)
[2022-08-08] MEDS: LEVOTHYROXINE 137 MCG PO SCH (19:04)
[2022-08-09] MEDS: Potassium Chloride 20 MEQ Tab.ER PO SCH ×2 (07:24→17:09)
[2022-08-09] MEDS: Albuterol/Ipratropium 3.0-0.5 MG/3 ML Neb Soln NEB SCH ×2 (07:24→19:15)
[2022-08-09] MEDS: Citalopram 20 MG Tab PO SCH (07:25)
[2022-08-09] MEDS: Furosemide 20 MG Tab PO SCH (07:25)
[2022-08-09] MEDS: Calcium Carbonate 750 MG Tab.Chew PO SCH (07:25)
[2022-08-09] MEDS: guaiFENesin 600 MG Tab.ER PO SCH ×2 (07:25→19:16)
[2022-08-09] MEDS: Polyethylene Glycol 3350 Powder 510 GM Bot PO SCH (07:25)
[2022-08-09] MEDS: Cyanocobalamin (Vitamin B12) 1,000 MCG Tab PO SCH (07:26)
[2022-08-09] MEDS: traMADol 50 MG Tab PO SCH (07:26)
[2022-08-09] MEDS: Acetaminophen 500 MG Tab PO SCH ×3 (07:26→19:16)
[2022-08-09] MEDS: LEVOTHYROXINE 137 MCG PO SCH (19:15)
[2022-08-09] MEDS: BUPROPION 300 MG PO SCH (19:15)
[2022-08-09] MEDS: Menthol 10%/Methyl Salicylate 15% 85 GM Tube TOP PRN (19:16)
[2022-08-10] MEDS: Albuterol/Ipratropium 3.0-0.5 MG/3 ML Neb Soln NEB SCH ×2 (07:28→19:13)
[2022-08-10] MEDS: Potassium Chloride 20 MEQ Tab.ER PO SCH ×2 (07:28→17:12)
[2022-08-10] MEDS: Citalopram 20 MG Tab PO SCH (07:28)
[2022-08-10] MEDS: Calcium Carbonate 750 MG Tab.Chew PO SCH (07:29)
[2022-08-10] MEDS: Furosemide 20 MG Tab PO SCH (07:29)
[2022-08-10] MEDS: Acetaminophen 500 MG Tab PO SCH ×3 (07:29→19:14)
[2022-08-10] MEDS: Cyanocobalamin (Vitamin B12) 1,000 MCG Tab PO SCH (07:30)
[2022-08-10] MEDS: guaiFENesin 600 MG Tab.ER PO SCH ×2 (07:30→19:14)
[2022-08-10] MEDS: Polyethylene Glycol 3350 Powder 510 GM Bot PO SCH (07:30)
[2022-08-10] MEDS: traMADol 50 MG Tab PO SCH (07:30)
[2022-08-10] MEDS: guaiFENesin/Dextromethorphan 100-10 MG/5 ML Soln 10 ML Cup PO PRN (08:36)
[2022-08-10] MEDS: BUPROPION 300 MG PO SCH (19:14)
[2022-08-10] MEDS: LEVOTHYROXINE 137 MCG PO SCH (19:14)
[2022-08-10] MEDS: Menthol 10%/Methyl Salicylate 15% 85 GM Tube TOP PRN (19:15)
[2022-08-11] MEDS: Polyethylene Glycol 3350 Powder 510 GM Bot PO SCH (08:13)
[2022-08-11] MEDS: Albuterol/Ipratropium 3.0-0.5 MG/3 ML Neb Soln NEB SCH ×2 (08:13→19:20)
[2022-08-11] MEDS: Potassium Chloride 20 MEQ Tab.ER PO SCH ×2 (08:13→17:24)
[2022-08-11] MEDS: Citalopram 20 MG Tab PO SCH (08:14)
[2022-08-11] MEDS: Furosemide 20 MG Tab PO SCH (08:14)
[2022-08-11] MEDS: Cyanocobalamin (Vitamin B12) 1,000 MCG Tab PO SCH (08:14)
[2022-08-11] MEDS: guaiFENesin 600 MG Tab.ER PO SCH ×2 (08:14→19:21)
[2022-08-11] MEDS: Calcium Carbonate 750 MG Tab.Chew PO SCH (08:15)
[2022-08-11] MEDS: Acetaminophen 500 MG Tab PO SCH ×3 (08:15→19:21)
[2022-08-11] MEDS: traMADol 50 MG Tab PO SCH (08:16)
[2022-08-11] MEDS: guaiFENesin/Dextromethorphan 100-10 MG/5 ML Soln 10 ML Cup PO PRN (09:26)
[2022-08-11] MEDS: LEVOTHYROXINE 137 MCG PO SCH (19:20)
[2022-08-11] MEDS: BUPROPION 300 MG PO SCH (19:20)
[2022-08-11] MEDS: Menthol 10%/Methyl Salicylate 15% 85 GM Tube TOP PRN (19:22)
[2022-08-12] MEDS: Polyethylene Glycol 3350 Powder 510 GM Bot PO SCH (07:26)
[2022-08-12] MEDS: traMADol 50 MG Tab PO SCH (07:27)
[2022-08-12] MEDS: Cyanocobalamin (Vitamin B12) 1,000 MCG Tab PO SCH (07:28)
[2022-08-12] MEDS: guaiFENesin 600 MG Tab.ER PO SCH ×2 (07:28→19:10)
[2022-08-12] MEDS: Calcium Carbonate 750 MG Tab.Chew PO SCH (07:28)
[2022-08-12] MEDS: Acetaminophen 500 MG Tab PO SCH ×3 (07:28→19:10)
[2022-08-12] MEDS: Potassium Chloride 20 MEQ Tab.ER PO SCH ×2 (07:29→17:10)
[2022-08-12] MEDS: Furosemide 20 MG Tab PO SCH (07:29)
[2022-08-12] MEDS: Albuterol/Ipratropium 3.0-0.5 MG/3 ML Neb Soln NEB SCH ×2 (07:29→19:08)
[2022-08-12] MEDS: Citalopram 20 MG Tab PO SCH (07:29)
[2022-08-12] MEDS: LEVOTHYROXINE 137 MCG PO SCH (19:08)
[2022-08-12] MEDS: BUPROPION 300 MG PO SCH (19:08)
[2022-08-13] MEDS: Albuterol/Ipratropium 3.0-0.5 MG/3 ML Neb Soln NEB SCH ×2 (07:13→19:09)
[2022-08-13] MEDS: Potassium Chloride 20 MEQ Tab.ER PO SCH ×2 (07:13→17:48)
[2022-08-13] MEDS: Citalopram 20 MG Tab PO SCH (07:13)
[2022-08-13] MEDS: Polyethylene Glycol 3350 Powder 510 GM Bot PO SCH (07:14)
[2022-08-13] MEDS: Acetaminophen 500 MG Tab PO SCH ×3 (07:14→19:10)
[2022-08-13] MEDS: Furosemide 20 MG Tab PO SCH (07:14)
[2022-08-13] MEDS: Calcium Carbonate 750 MG Tab.Chew PO SCH (07:15)
[2022-08-13] MEDS: guaiFENesin 600 MG Tab.ER PO SCH ×2 (07:15→19:09)
[2022-08-13] MEDS: Cyanocobalamin (Vitamin B12) 1,000 MCG Tab PO SCH (07:15)
[2022-08-13] MEDS: traMADol 50 MG Tab PO SCH (07:16)
[2022-08-13] MEDS: Menthol 10%/Methyl Salicylate 15% 85 GM Tube TOP PRN (12:26)
[2022-08-13] MEDS: LEVOTHYROXINE 137 MCG PO SCH (19:10)
[2022-08-13] MEDS: BUPROPION 300 MG PO SCH (19:10)
[2022-08-14] MEDS: traMADol 50 MG Tab PO SCH (07:03)
[2022-08-14] MEDS: Citalopram 20 MG Tab PO SCH (07:04)
[2022-08-14] MEDS: Potassium Chloride 20 MEQ Tab.ER PO SCH ×2 (07:04→17:18)
[2022-08-14] MEDS: Albuterol/Ipratropium 3.0-0.5 MG/3 ML Neb Soln NEB SCH ×2 (07:04→19:16)
[2022-08-14] MEDS: Furosemide 20 MG Tab PO SCH (07:05)
[2022-08-14] MEDS: Cyanocobalamin (Vitamin B12) 1,000 MCG Tab PO SCH (07:05)
[2022-08-14] MEDS: Calcium Carbonate 750 MG Tab.Chew PO SCH (07:05)
[2022-08-14] MEDS: Acetaminophen 500 MG Tab PO SCH ×3 (07:06→19:17)
[2022-08-14] MEDS: guaiFENesin 600 MG Tab.ER PO SCH ×2 (07:06→19:17)
[2022-08-14] MEDS: Polyethylene Glycol 3350 Powder 510 GM Bot PO SCH (07:07)
[2022-08-14] MEDS: LEVOTHYROXINE 137 MCG PO SCH (19:16)
[2022-08-14] MEDS: BUPROPION 300 MG PO SCH (19:17)
[2022-08-14] MEDS: Menthol 10%/Methyl Salicylate 15% 85 GM Tube TOP PRN (19:18)
[2022-08-15] MEDS: traMADol 50 MG Tab PO SCH (07:24)
[2022-08-15] MEDS: Acetaminophen 500 MG Tab PO SCH ×3 (07:25→19:19)
[2022-08-15] MEDS: Polyethylene Glycol 3350 Powder 510 GM Bot PO SCH (07:26)
[2022-08-15] MEDS: Calcium Carbonate 750 MG Tab.Chew PO SCH (07:26)
[2022-08-15] MEDS: Cyanocobalamin (Vitamin B12) 1,000 MCG Tab PO SCH (07:26)
[2022-08-15] MEDS: guaiFENesin 600 MG Tab.ER PO SCH ×2 (07:26→19:19)
[2022-08-15] MEDS: Furosemide 20 MG Tab PO SCH (07:27)
[2022-08-15] MEDS: Albuterol/Ipratropium 3.0-0.5 MG/3 ML Neb Soln NEB SCH ×2 (07:27→19:18)
[2022-08-15] MEDS: Citalopram 20 MG Tab PO SCH (07:27)
[2022-08-15] MEDS: Potassium Chloride 20 MEQ Tab.ER PO SCH ×2 (07:27→17:06)
[2022-08-15] MEDS: LEVOTHYROXINE 137 MCG PO SCH (19:18)
[2022-08-15] MEDS: BUPROPION 300 MG PO SCH (19:18)
[2022-08-15] MEDS: Menthol 10%/Methyl Salicylate 15% 85 GM Tube TOP PRN (19:20)
[2022-08-16] MEDS: Polyethylene Glycol 3350 Powder 510 GM Bot PO SCH (07:19)
[2022-08-16] MEDS: traMADol 50 MG Tab PO SCH (07:19)
[2022-08-16] MEDS: Acetaminophen 500 MG Tab PO SCH ×3 (07:20→19:43)
[2022-08-16] MEDS: guaiFENesin 600 MG Tab.ER PO SCH ×2 (07:21→19:43)
[2022-08-16] MEDS: Cyanocobalamin (Vitamin B12) 1,000 MCG Tab PO SCH (07:21)
[2022-08-16] MEDS: Potassium Chloride 20 MEQ Tab.ER PO SCH ×2 (07:21→16:59)
[2022-08-16] MEDS: Albuterol/Ipratropium 3.0-0.5 MG/3 ML Neb Soln NEB SCH ×2 (07:21→19:40)
[2022-08-16] MEDS: Citalopram 20 MG Tab PO SCH (07:21)
[2022-08-16] MEDS: Calcium Carbonate 750 MG Tab.Chew PO SCH (07:22)
[2022-08-16] MEDS: Furosemide 20 MG Tab PO SCH (07:22)
[2022-08-16] MEDS: LEVOTHYROXINE 137 MCG PO SCH (19:42)
[2022-08-16] MEDS: BUPROPION 300 MG PO SCH (19:43)
[2022-08-17] MEDS: Citalopram 20 MG Tab PO SCH (06:59)
[2022-08-17] MEDS: Polyethylene Glycol 3350 Powder 510 GM Bot PO SCH (07:00)
[2022-08-17] MEDS: Potassium Chloride 20 MEQ Tab.ER PO SCH ×2 (07:00→17:29)
[2022-08-17] MEDS: Furosemide 20 MG Tab PO SCH (07:00)
[2022-08-17] MEDS: guaiFENesin 600 MG Tab.ER PO SCH ×2 (07:01→19:47)
[2022-08-17] MEDS: Calcium Carbonate 750 MG Tab.Chew PO SCH (07:01)
[2022-08-17] MEDS: Albuterol/Ipratropium 3.0-0.5 MG/3 ML Neb Soln NEB SCH ×2 (07:01→19:47)
[2022-08-17] MEDS: Acetaminophen 500 MG Tab PO SCH ×3 (07:02→19:48)
[2022-08-17] MEDS: traMADol 50 MG Tab PO SCH (07:03)
[2022-08-17] MEDS: Cyanocobalamin (Vitamin B12) 1,000 MCG Tab PO SCH (07:03)
[2022-08-17] MEDS: Menthol 10%/Methyl Salicylate 15% 85 GM Tube TOP PRN (14:24)
[2022-08-17] MEDS: LEVOTHYROXINE 137 MCG PO SCH (19:47)
[2022-08-17] MEDS: BUPROPION 300 MG PO SCH (19:48)
[2022-08-18] MEDS: Potassium Chloride 20 MEQ Tab.ER PO SCH ×2 (07:18→17:22)
[2022-08-18] MEDS: Citalopram 20 MG Tab PO SCH (07:18)
[2022-08-18] MEDS: Furosemide 20 MG Tab PO SCH (07:19)
[2022-08-18] MEDS: guaiFENesin 600 MG Tab.ER PO SCH ×2 (07:20→19:45)
[2022-08-18] MEDS: Albuterol/Ipratropium 3.0-0.5 MG/3 ML Neb Soln NEB SCH ×2 (07:26→19:43)
[2022-08-18] MEDS: Polyethylene Glycol 3350 Powder 510 GM Bot PO SCH (07:26)
[2022-08-18] MEDS: Calcium Carbonate 750 MG Tab.Chew PO SCH (07:27)
[2022-08-18] MEDS: Acetaminophen 500 MG Tab PO SCH ×3 (07:27→19:46)
[2022-08-18] MEDS: Cyanocobalamin (Vitamin B12) 1,000 MCG Tab PO SCH (07:29)
[2022-08-18] MEDS: traMADol 50 MG Tab PO SCH (07:29)
[2022-08-18] MEDS: LEVOTHYROXINE 137 MCG PO SCH (19:45)
[2022-08-18] MEDS: BUPROPION 300 MG PO SCH (19:45)
[2022-08-19] MEDS: Polyethylene Glycol 3350 Powder 510 GM Bot PO SCH (07:27)
[2022-08-19] MEDS: Acetaminophen 500 MG Tab PO SCH ×3 (07:28→19:12)
[2022-08-19] MEDS: traMADol 50 MG Tab PO SCH (07:28)
[2022-08-19] MEDS: Calcium Carbonate 750 MG Tab.Chew PO SCH (07:29)
[2022-08-19] MEDS: guaiFENesin 600 MG Tab.ER PO SCH ×2 (07:29→19:12)
[2022-08-19] MEDS: Furosemide 20 MG Tab PO SCH (07:30)
[2022-08-19] MEDS: Albuterol/Ipratropium 3.0-0.5 MG/3 ML Neb Soln NEB SCH ×2 (07:30→19:12)
[2022-08-19] MEDS: Potassium Chloride 20 MEQ Tab.ER PO SCH ×2 (07:30→17:22)
[2022-08-19] MEDS: Citalopram 20 MG Tab PO SCH (07:30)
[2022-08-19] MEDS: Cyanocobalamin (Vitamin B12) 1,000 MCG Tab PO SCH (07:30)
[2022-08-19] MEDS: BUPROPION 300 MG PO SCH (19:12)
[2022-08-19] MEDS: LEVOTHYROXINE 137 MCG PO SCH (19:12)
[2022-08-19] MEDS: Menthol 10%/Methyl Salicylate 15% 85 GM Tube TOP PRN (19:13)
[2022-08-20] MEDS: Furosemide 20 MG Tab PO SCH (07:22)
[2022-08-20] MEDS: Potassium Chloride 20 MEQ Tab.ER PO SCH ×2 (07:22→17:09)
[2022-08-20] MEDS: Albuterol/Ipratropium 3.0-0.5 MG/3 ML Neb Soln NEB SCH ×2 (07:22→19:10)
[2022-08-20] MEDS: Citalopram 20 MG Tab PO SCH (07:22)
[2022-08-20] MEDS: guaiFENesin 600 MG Tab.ER PO SCH ×2 (07:24→19:11)
[2022-08-20] MEDS: Polyethylene Glycol 3350 Powder 510 GM Bot PO SCH (07:24)
[2022-08-20] MEDS: Calcium Carbonate 750 MG Tab.Chew PO SCH (07:26)
[2022-08-20] MEDS: Acetaminophen 500 MG Tab PO SCH ×3 (07:26→19:11)
[2022-08-20] MEDS: Cyanocobalamin (Vitamin B12) 1,000 MCG Tab PO SCH (07:27)
[2022-08-20] MEDS: traMADol 50 MG Tab PO SCH (07:28)
[2022-08-20] MEDS: LEVOTHYROXINE 137 MCG PO SCH (19:10)
[2022-08-20] MEDS: BUPROPION 300 MG PO SCH (19:10)
[2022-08-20] MEDS: Menthol 10%/Methyl Salicylate 15% 85 GM Tube TOP PRN (19:12)
[2022-08-21] MEDS: Citalopram 20 MG Tab PO SCH (07:42)
[2022-08-21] MEDS: Albuterol/Ipratropium 3.0-0.5 MG/3 ML Neb Soln NEB SCH ×2 (07:42→19:17)
[2022-08-21] MEDS: Furosemide 20 MG Tab PO SCH (07:43)
[2022-08-21] MEDS: Polyethylene Glycol 3350 Powder 510 GM Bot PO SCH (07:43)
[2022-08-21] MEDS: guaiFENesin 600 MG Tab.ER PO SCH ×2 (07:44→19:18)
[2022-08-21] MEDS: Calcium Carbonate 750 MG Tab.Chew PO SCH (07:44)
[2022-08-21] MEDS: Acetaminophen 500 MG Tab PO SCH ×3 (07:45→19:18)
[2022-08-21] MEDS: traMADol 50 MG Tab PO SCH (07:47)
[2022-08-21] MEDS: Cyanocobalamin (Vitamin B12) 1,000 MCG Tab PO SCH (07:48)
[2022-08-21] MEDS: Potassium Chloride 20 MEQ Tab.ER PO SCH ×2 (09:22→17:25)
[2022-08-21] MEDS: BUPROPION 300 MG PO SCH (19:18)
[2022-08-21] MEDS: LEVOTHYROXINE 137 MCG PO SCH (19:18)
[2022-08-21] MEDS: Menthol 10%/Methyl Salicylate 15% 85 GM Tube TOP PRN (19:19)
[2022-08-22] MEDS: traMADol 50 MG Tab PO SCH (07:11)
[2022-08-22] MEDS: Polyethylene Glycol 3350 Powder 510 GM Bot PO SCH (07:11)
[2022-08-22] MEDS: guaiFENesin 600 MG Tab.ER PO SCH ×2 (07:12→19:27)
[2022-08-22] MEDS: Calcium Carbonate 750 MG Tab.Chew PO SCH (07:12)
[2022-08-22] MEDS: Acetaminophen 500 MG Tab PO SCH ×3 (07:12→19:27)
[2022-08-22] MEDS: Citalopram 20 MG Tab PO SCH (07:13)
[2022-08-22] MEDS: Cyanocobalamin (Vitamin B12) 1,000 MCG Tab PO SCH (07:13)
[2022-08-22] MEDS: Albuterol/Ipratropium 3.0-0.5 MG/3 ML Neb Soln NEB SCH ×2 (07:13→19:25)
[2022-08-22] MEDS: Potassium Chloride 20 MEQ Tab.ER PO SCH ×2 (07:13→17:23)
[2022-08-22] MEDS: Furosemide 20 MG Tab PO SCH (07:14)
[2022-08-22] MEDS: LEVOTHYROXINE 137 MCG PO SCH (19:25)
[2022-08-22] MEDS: BUPROPION 300 MG PO SCH (19:27)
[2022-08-23] MEDS: Citalopram 20 MG Tab PO SCH (07:31)
[2022-08-23] MEDS: Polyethylene Glycol 3350 Powder 510 GM Bot PO SCH (07:31)
[2022-08-23] MEDS: Furosemide 20 MG Tab PO SCH (07:32)
[2022-08-23] MEDS: Albuterol/Ipratropium 3.0-0.5 MG/3 ML Neb Soln NEB SCH ×2 (07:32→19:09)
[2022-08-23] MEDS: Potassium Chloride 20 MEQ Tab.ER PO SCH ×2 (07:32→17:23)
[2022-08-23] MEDS: guaiFENesin 600 MG Tab.ER PO SCH ×2 (07:33→19:08)
[2022-08-23] MEDS: Acetaminophen 500 MG Tab PO SCH ×3 (07:33→19:08)
[2022-08-23] MEDS: Calcium Carbonate 750 MG Tab.Chew PO SCH (07:33)
[2022-08-23] MEDS: traMADol 50 MG Tab PO SCH (07:34)
[2022-08-23] MEDS: Cyanocobalamin (Vitamin B12) 1,000 MCG Tab PO SCH (07:34)
[2022-08-23 12:25] LABS: APPEARANCE,URINE SLIGHTLY CLOUDY; BILIRUBIN,URINE NEGATIVE (NEGATIVE); COLOR,URINE YELLOW; GLUCOSE,URINE NEGATIVE (NEGATIVE); KETONES,URINE NEGATIVE (NEGATIVE); LEUKOCYTE ESTERASE,URINE NEGATIVE (NEGATIVE); NITRITE,URINE POSITIVE (NEGATIVE); OCCULT BLOOD,URINE NEGATIVE (NEGATIVE); PH,URINE 5.5 (5.0-9.0); PROTEIN,URINE NEGATIVE (NEGATIVE); UROBILINOGEN,URINE 0.2 E.U./dL (0.2-1.0)
[2022-08-23 12:40] LABS: BACTERIA,URINE MANY /HPF (NONE TO FEW); EPITHELIAL CELLS,URINE RARE /LPF; RBC,URINE 0-5 /HPF; WBC,URINE 0-5 /HPF
[2022-08-23] MEDS: Sulfamethoxazole/Trimethoprim 800-160 MG Tab PO SCH (17:23)
[2022-08-23] MEDS: LEVOTHYROXINE 137 MCG PO SCH (19:08)
[2022-08-23] MEDS: BUPROPION 300 MG PO SCH (19:08)
[2022-08-24] MEDS: Polyethylene Glycol 3350 Powder 510 GM Bot PO SCH (07:28)
[2022-08-24] MEDS: traMADol 50 MG Tab PO SCH (07:28)
[2022-08-24] MEDS: Acetaminophen 500 MG Tab PO SCH ×3 (07:29→19:10)
[2022-08-24] MEDS: guaiFENesin 600 MG Tab.ER PO SCH ×2 (07:30→19:10)
[2022-08-24] MEDS: Cyanocobalamin (Vitamin B12) 1,000 MCG Tab PO SCH (07:30)
[2022-08-24] MEDS: Calcium Carbonate 750 MG Tab.Chew PO SCH (07:30)
[2022-08-24] MEDS: Citalopram 20 MG Tab PO SCH (07:31)
[2022-08-24] MEDS: Potassium Chloride 20 MEQ Tab.ER PO SCH ×2 (07:31→17:23)
[2022-08-24] MEDS: Furosemide 20 MG Tab PO SCH (07:31)
[2022-08-24] MEDS: Albuterol/Ipratropium 3.0-0.5 MG/3 ML Neb Soln NEB SCH ×2 (07:31→19:10)
[2022-08-24] MEDS: Sulfamethoxazole/Trimethoprim 800-160 MG Tab PO SCH ×2 (07:32→17:24)
[2022-08-24] MEDS: BUPROPION 300 MG PO SCH (19:10)
[2022-08-24] MEDS: LEVOTHYROXINE 137 MCG PO SCH (19:10)
[2022-08-25] MEDS: traMADol 50 MG Tab PO SCH (07:35)
[2022-08-25] MEDS: guaiFENesin 600 MG Tab.ER PO SCH ×2 (07:36→19:15)
[2022-08-25] MEDS: Acetaminophen 500 MG Tab PO SCH ×3 (07:36→19:16)
[2022-08-25] MEDS: Potassium Chloride 20 MEQ Tab.ER PO SCH ×2 (07:37→17:07)
[2022-08-25] MEDS: Albuterol/Ipratropium 3.0-0.5 MG/3 ML Neb Soln NEB SCH ×2 (07:37→19:16)
[2022-08-25] MEDS: Citalopram 20 MG Tab PO SCH (07:37)
[2022-08-25] MEDS: Calcium Carbonate 750 MG Tab.Chew PO SCH (07:37)
[2022-08-25] MEDS: Cyanocobalamin (Vitamin B12) 1,000 MCG Tab PO SCH (07:37)
[2022-08-25] MEDS: Sulfamethoxazole/Trimethoprim 800-160 MG Tab PO SCH ×2 (07:38→17:07)
[2022-08-25] MEDS: Furosemide 20 MG Tab PO SCH (07:38)
[2022-08-25] MEDS: Polyethylene Glycol 3350 Powder 510 GM Bot PO SCH (07:38)
[2022-08-25] MEDS: LEVOTHYROXINE 137 MCG PO SCH (19:15)
[2022-08-25] MEDS: BUPROPION 300 MG PO SCH (19:15)
[2022-08-26] MEDS: Albuterol/Ipratropium 3.0-0.5 MG/3 ML Neb Soln NEB SCH ×2 (08:00→20:00)
[2022-08-26] MEDS: guaiFENesin 600 MG Tab.ER PO SCH ×2 (08:00→20:00)
[2022-08-26] MEDS: Cyanocobalamin (Vitamin B12) 1,000 MCG Tab PO SCH (08:00)
[2022-08-26] MEDS: Furosemide 20 MG Tab PO SCH (08:00)
[2022-08-26] MEDS: Calcium Carbonate 750 MG Tab.Chew PO SCH (08:00)
[2022-08-26] MEDS: Polyethylene Glycol 3350 Powder 510 GM Bot PO SCH (08:00)
[2022-08-26] MEDS: Potassium Chloride 20 MEQ Tab.ER PO SCH ×2 (08:00→18:00)
[2022-08-26] MEDS: traMADol 50 MG Tab PO SCH (08:00)
[2022-08-26] MEDS: Citalopram 20 MG Tab PO SCH (08:00)
[2022-08-26] MEDS: Acetaminophen 500 MG Tab PO SCH ×3 (08:00→20:00)
[2022-08-26] MEDS: BUPROPION 300 MG PO SCH (20:00)
[2022-08-26] MEDS: LEVOTHYROXINE 137 MCG PO SCH (20:00)
[2022-08-27] MEDS: Acetaminophen 500 MG Tab PO SCH ×3 (08:00→20:00)
[2022-08-27] MEDS: Potassium Chloride 20 MEQ Tab.ER PO SCH ×2 (08:00→18:00)
[2022-08-27] MEDS: Albuterol/Ipratropium 3.0-0.5 MG/3 ML Neb Soln NEB SCH ×2 (08:00→20:00)
[2022-08-27] MEDS: Cyanocobalamin (Vitamin B12) 1,000 MCG Tab PO SCH (08:00)
[2022-08-27] MEDS: guaiFENesin 600 MG Tab.ER PO SCH ×2 (08:00→20:00)
[2022-08-27] MEDS: Citalopram 20 MG Tab PO SCH (08:00)
[2022-08-27] MEDS: Furosemide 20 MG Tab PO SCH (08:00)
[2022-08-27] MEDS: Calcium Carbonate 750 MG Tab.Chew PO SCH (08:00)
[2022-08-27] MEDS: traMADol 50 MG Tab PO SCH (08:00)
[2022-08-27] MEDS: Polyethylene Glycol 3350 Powder 510 GM Bot PO SCH (08:00)
[2022-08-27] MEDS: BUPROPION 300 MG PO SCH (20:00)
[2022-08-27] MEDS: LEVOTHYROXINE 137 MCG PO SCH (20:00)
[2022-08-28] MEDS: Calcium Carbonate 750 MG Tab.Chew PO SCH (08:00)
[2022-08-28] MEDS: Potassium Chloride 20 MEQ Tab.ER PO SCH ×2 (08:00→18:00)
[2022-08-28] MEDS: Furosemide 20 MG Tab PO SCH (08:00)
[2022-08-28] MEDS: Albuterol/Ipratropium 3.0-0.5 MG/3 ML Neb Soln NEB SCH ×2 (08:00→20:00)
[2022-08-28] MEDS: guaiFENesin 600 MG Tab.ER PO SCH ×2 (08:00→20:00)
[2022-08-28] MEDS: traMADol 50 MG Tab PO SCH (08:00)
[2022-08-28] MEDS: Citalopram 20 MG Tab PO SCH (08:00)
[2022-08-28] MEDS: Polyethylene Glycol 3350 Powder 510 GM Bot PO SCH (08:00)
[2022-08-28] MEDS: Acetaminophen 500 MG Tab PO SCH ×3 (08:00→20:00)
[2022-08-28] MEDS: Cyanocobalamin (Vitamin B12) 1,000 MCG Tab PO SCH (08:00)
[2022-08-28] MEDS: BUPROPION 300 MG PO SCH (20:00)
[2022-08-28] MEDS: LEVOTHYROXINE 137 MCG PO SCH (20:00)
[2022-08-29] MEDS: traMADol 50 MG Tab PO SCH (08:00)
[2022-08-29] MEDS: Furosemide 20 MG Tab PO SCH (08:00)
[2022-08-29] MEDS: Albuterol/Ipratropium 3.0-0.5 MG/3 ML Neb Soln NEB SCH ×2 (08:00→20:00)
[2022-08-29] MEDS: Calcium Carbonate 750 MG Tab.Chew PO SCH (08:00)
[2022-08-29] MEDS: guaiFENesin 600 MG Tab.ER PO SCH ×2 (08:00→20:00)
[2022-08-29] MEDS: Cyanocobalamin (Vitamin B12) 1,000 MCG Tab PO SCH (08:00)
[2022-08-29] MEDS: Citalopram 20 MG Tab PO SCH (08:00)
[2022-08-29] MEDS: Potassium Chloride 20 MEQ Tab.ER PO SCH ×2 (08:00→18:00)
[2022-08-29] MEDS: Polyethylene Glycol 3350 Powder 510 GM Bot PO SCH (08:00)
[2022-08-29] MEDS: Acetaminophen 500 MG Tab PO SCH ×3 (08:00→20:00)
[2022-08-29] MEDS: LEVOTHYROXINE 137 MCG PO SCH (20:00)
[2022-08-29] MEDS: BUPROPION 300 MG PO SCH (20:00)
[2022-08-30] MEDS: Albuterol/Ipratropium 3.0-0.5 MG/3 ML Neb Soln NEB SCH ×2 (08:00→20:00)
[2022-08-30] MEDS: Acetaminophen 500 MG Tab PO SCH ×3 (08:00→20:00)
[2022-08-30] MEDS: traMADol 50 MG Tab PO SCH (08:00)
[2022-08-30] MEDS: Cyanocobalamin (Vitamin B12) 1,000 MCG Tab PO SCH (08:00)
[2022-08-30] MEDS: Polyethylene Glycol 3350 Powder 510 GM Bot PO SCH (08:00)
[2022-08-30] MEDS: Potassium Chloride 20 MEQ Tab.ER PO SCH ×2 (08:00→18:00)
[2022-08-30] MEDS: Citalopram 20 MG Tab PO SCH (08:00)
[2022-08-30] MEDS: guaiFENesin 600 MG Tab.ER PO SCH ×2 (08:00→20:00)
[2022-08-30] MEDS: Furosemide 20 MG Tab PO SCH (08:00)
[2022-08-30] MEDS: Calcium Carbonate 750 MG Tab.Chew PO SCH (08:00)
[2022-08-30] MEDS: BUPROPION 300 MG PO SCH (20:00)
[2022-08-30] MEDS: LEVOTHYROXINE 137 MCG PO SCH (20:00)
[2022-08-31] MEDS: Albuterol/Ipratropium 3.0-0.5 MG/3 ML Neb Soln NEB SCH ×2 (08:00→20:00)
[2022-08-31] MEDS: Furosemide 20 MG Tab PO SCH (08:00)
[2022-08-31] MEDS: guaiFENesin 600 MG Tab.ER PO SCH ×2 (08:00→20:00)
[2022-08-31] MEDS: Citalopram 20 MG Tab PO SCH (08:00)
[2022-08-31] MEDS: Acetaminophen 500 MG Tab PO SCH ×3 (08:00→20:00)
[2022-08-31] MEDS: traMADol 50 MG Tab PO SCH (08:00)
[2022-08-31] MEDS: Polyethylene Glycol 3350 Powder 510 GM Bot PO SCH (08:00)
[2022-08-31] MEDS: Calcium Carbonate 750 MG Tab.Chew PO SCH (08:00)
[2022-08-31] MEDS: Cyanocobalamin (Vitamin B12) 1,000 MCG Tab PO SCH (08:00)
[2022-08-31] MEDS: Potassium Chloride 20 MEQ Tab.ER PO SCH ×2 (08:00→18:00)
[2022-08-31] MEDS: LEVOTHYROXINE 137 MCG PO SCH (20:00)
[2022-08-31] MEDS: BUPROPION 300 MG PO SCH (20:00)
[2022-09-10] MEDS: Albuterol/Ipratropium 3.0-0.5 MG/3 ML Neb Soln NEB SCH ×7 (17:22→17:43)
[2022-09-10] MEDS: Citalopram 20 MG Tab PO SCH ×6 (17:22→17:44)
[2022-09-10] MEDS: Furosemide 20 MG Tab PO SCH ×6 (17:25→17:41)
[2022-09-10] MEDS: Potassium Chloride 20 MEQ Tab.ER PO SCH ×6 (17:25→18:24)
[2022-09-10] MEDS: guaiFENesin 600 MG Tab.ER PO SCH ×6 (17:26→17:42)
[2022-09-10] MEDS: Acetaminophen 500 MG Tab PO SCH ×10 (17:26→17:43)
[2022-09-10] MEDS: Polyethylene Glycol 3350 Powder 510 GM Bot PO SCH ×5 (17:26→17:41)
[2022-09-10] MEDS: Calcium Carbonate 750 MG Tab.Chew PO SCH ×6 (17:26→17:42)
[2022-09-10] MEDS: traMADol 50 MG Tab PO SCH ×6 (17:28→17:43)
[2022-09-10] MEDS: Cyanocobalamin (Vitamin B12) 1,000 MCG Tab PO SCH ×5 (17:29→17:43)
[2022-09-10] MEDS: LEVOTHYROXINE 137 MCG PO SCH ×5 (17:29→17:44)
[2022-09-10] MEDS: BUPROPION 300 MG PO SCH ×5 (17:29→17:44)
[2022-09-11] MEDS: Albuterol/Ipratropium 3.0-0.5 MG/3 ML Neb Soln NEB SCH ×3 (00:05→19:17)
[2022-09-11] MEDS: LEVOTHYROXINE 137 MCG PO SCH ×2 (00:10→19:17)
[2022-09-11] MEDS: guaiFENesin 600 MG Tab.ER PO SCH ×3 (00:22→19:18)
[2022-09-11] MEDS: BUPROPION 300 MG PO SCH ×2 (00:28→19:17)
[2022-09-11] MEDS: Acetaminophen 500 MG Tab PO SCH ×4 (00:51→19:18)
[2022-09-11] MEDS: Furosemide 20 MG Tab PO SCH (07:24)
[2022-09-11] MEDS: Citalopram 20 MG Tab PO SCH (07:24)
[2022-09-11] MEDS: Potassium Chloride 20 MEQ Tab.ER PO SCH ×2 (07:24→17:38)
[2022-09-11] MEDS: Calcium Carbonate 750 MG Tab.Chew PO SCH (07:25)
[2022-09-11] MEDS: Cyanocobalamin (Vitamin B12) 1,000 MCG Tab PO SCH (07:27)
[2022-09-11] MEDS: Polyethylene Glycol 3350 Powder 510 GM Bot PO SCH (07:28)
[2022-09-11] MEDS: traMADol 50 MG Tab PO SCH (07:28)
[2022-09-12] MEDS: Potassium Chloride 20 MEQ Tab.ER PO SCH ×2 (07:32→17:47)
[2022-09-12] MEDS: Citalopram 20 MG Tab PO SCH (07:33)
[2022-09-12] MEDS: Furosemide 20 MG Tab PO SCH (07:33)
[2022-09-12] MEDS: guaiFENesin 600 MG Tab.ER PO SCH ×2 (07:34→19:21)
[2022-09-12] MEDS: Calcium Carbonate 750 MG Tab.Chew PO SCH (07:35)
[2022-09-12] MEDS: Acetaminophen 500 MG Tab PO SCH ×3 (07:36→19:22)
[2022-09-12] MEDS: Cyanocobalamin (Vitamin B12) 1,000 MCG Tab PO SCH (07:37)
[2022-09-12] MEDS: Polyethylene Glycol 3350 Powder 510 GM Bot PO SCH (07:37)
[2022-09-12] MEDS: traMADol 50 MG Tab PO SCH (07:38)
[2022-09-12] MEDS: Menthol 10%/Methyl Salicylate 15% 85 GM Tube TOP PRN ×2 (07:39→19:23)
[2022-09-12] MEDS: Albuterol/Ipratropium 3.0-0.5 MG/3 ML Neb Soln NEB SCH ×2 (07:40→19:21)
[2022-09-12] MEDS: BUPROPION 300 MG PO SCH (19:21)
[2022-09-12] MEDS: LEVOTHYROXINE 137 MCG PO SCH (19:21)
[2022-09-13] MEDS: Acetaminophen 500 MG Tab PO SCH ×3 (07:33→19:13)
[2022-09-13] MEDS: traMADol 50 MG Tab PO SCH (07:33)
[2022-09-13] MEDS: Polyethylene Glycol 3350 Powder 510 GM Bot PO SCH (07:34)
[2022-09-13] MEDS: guaiFENesin 600 MG Tab.ER PO SCH ×2 (07:34→19:11)
[2022-09-13] MEDS: Calcium Carbonate 750 MG Tab.Chew PO SCH (07:34)
[2022-09-13] MEDS: Albuterol/Ipratropium 3.0-0.5 MG/3 ML Neb Soln NEB SCH ×2 (07:35→19:12)
[2022-09-13] MEDS: Cyanocobalamin (Vitamin B12) 1,000 MCG Tab PO SCH (07:35)
[2022-09-13] MEDS: Potassium Chloride 20 MEQ Tab.ER PO SCH ×2 (07:35→17:07)
[2022-09-13] MEDS: Citalopram 20 MG Tab PO SCH (07:35)
[2022-09-13] MEDS: Furosemide 20 MG Tab PO SCH (07:36)
[2022-09-13] MEDS: LEVOTHYROXINE 137 MCG PO SCH (19:11)
[2022-09-13] MEDS: BUPROPION 300 MG PO SCH (19:11)
[2022-09-14] MEDS: traMADol 50 MG Tab PO SCH (07:35)
[2022-09-14] MEDS: Polyethylene Glycol 3350 Powder 510 GM Bot PO SCH (07:35)
[2022-09-14] MEDS: guaiFENesin 600 MG Tab.ER PO SCH ×2 (07:36→19:07)
[2022-09-14] MEDS: Cyanocobalamin (Vitamin B12) 1,000 MCG Tab PO SCH (07:36)
[2022-09-14] MEDS: Acetaminophen 500 MG Tab PO SCH ×3 (07:36→19:07)
[2022-09-14] MEDS: Citalopram 20 MG Tab PO SCH (07:37)
[2022-09-14] MEDS: Calcium Carbonate 750 MG Tab.Chew PO SCH (07:37)
[2022-09-14] MEDS: Albuterol/Ipratropium 3.0-0.5 MG/3 ML Neb Soln NEB SCH ×2 (07:37→19:08)
[2022-09-14] MEDS: Potassium Chloride 20 MEQ Tab.ER PO SCH ×2 (07:37→17:22)
[2022-09-14] MEDS: Furosemide 20 MG Tab PO SCH (07:38)
[2022-09-14] MEDS: BUPROPION 300 MG PO SCH (19:08)
[2022-09-14] MEDS: LEVOTHYROXINE 137 MCG PO SCH (19:08)
[2022-09-15] MEDS: Menthol 10%/Methyl Salicylate 15% 85 GM Tube TOP PRN (01:00)
[2022-09-15] MEDS: Albuterol/Ipratropium 3.0-0.5 MG/3 ML Neb Soln NEB SCH ×2 (07:12→19:11)
[2022-09-15] MEDS: traMADol 50 MG Tab PO SCH (07:13)
[2022-09-15] MEDS: Acetaminophen 500 MG Tab PO SCH ×3 (07:13→19:10)
[2022-09-15] MEDS: Cyanocobalamin (Vitamin B12) 1,000 MCG Tab PO SCH (07:14)
[2022-09-15] MEDS: guaiFENesin 600 MG Tab.ER PO SCH ×2 (07:14→19:11)
[2022-09-15] MEDS: Calcium Carbonate 750 MG Tab.Chew PO SCH (07:15)
[2022-09-15] MEDS: Furosemide 20 MG Tab PO SCH (07:16)
[2022-09-15] MEDS: Citalopram 20 MG Tab PO SCH (07:16)
[2022-09-15] MEDS: Polyethylene Glycol 3350 Powder 510 GM Bot PO SCH (07:16)
[2022-09-15] MEDS: Potassium Chloride 20 MEQ Tab.ER PO SCH ×2 (07:16→17:26)
[2022-09-15] MEDS: LEVOTHYROXINE 137 MCG PO SCH (19:11)
[2022-09-15] MEDS: BUPROPION 300 MG PO SCH (19:11)
[2022-09-16] MEDS: Menthol 10%/Methyl Salicylate 15% 85 GM Tube TOP PRN (07:15)
[2022-09-16] MEDS: Citalopram 20 MG Tab PO SCH (08:53)
[2022-09-16] MEDS: Furosemide 20 MG Tab PO SCH (08:53)
[2022-09-16] MEDS: Potassium Chloride 20 MEQ Tab.ER PO SCH ×2 (08:53→17:02)
[2022-09-16] MEDS: Albuterol/Ipratropium 3.0-0.5 MG/3 ML Neb Soln NEB SCH ×2 (08:54→19:26)
[2022-09-16] MEDS: guaiFENesin 600 MG Tab.ER PO SCH ×2 (08:54→19:27)
[2022-09-16] MEDS: Acetaminophen 500 MG Tab PO SCH ×3 (08:55→19:28)
[2022-09-16] MEDS: Calcium Carbonate 750 MG Tab.Chew PO SCH (08:55)
[2022-09-16] MEDS: Cyanocobalamin (Vitamin B12) 1,000 MCG Tab PO SCH (08:57)
[2022-09-16] MEDS: Polyethylene Glycol 3350 Powder 510 GM Bot PO SCH ×2 (08:57→09:00)
[2022-09-16] MEDS: traMADol 50 MG Tab PO SCH (08:58)
[2022-09-16] MEDS: LEVOTHYROXINE 137 MCG PO SCH (19:27)
[2022-09-16] MEDS: BUPROPION 300 MG PO SCH (19:28)
[2022-09-17] MEDS: Albuterol/Ipratropium 3.0-0.5 MG/3 ML Neb Soln NEB SCH ×2 (07:42→19:42)
[2022-09-17] MEDS: Polyethylene Glycol 3350 Powder 510 GM Bot PO SCH (07:42)
[2022-09-17] MEDS: traMADol 50 MG Tab PO SCH (07:43)
[2022-09-17] MEDS: guaiFENesin 600 MG Tab.ER PO SCH ×2 (07:44→19:44)
[2022-09-17] MEDS: Acetaminophen 500 MG Tab PO SCH ×3 (07:44→19:46)
[2022-09-17] MEDS: Calcium Carbonate 750 MG Tab.Chew PO SCH (07:44)
[2022-09-17] MEDS: Cyanocobalamin (Vitamin B12) 1,000 MCG Tab PO SCH (07:45)
[2022-09-17] MEDS: Citalopram 20 MG Tab PO SCH (07:45)
[2022-09-17] MEDS: Potassium Chloride 20 MEQ Tab.ER PO SCH ×2 (07:45→17:12)
[2022-09-17] MEDS: Furosemide 20 MG Tab PO SCH (07:45)
[2022-09-17] MEDS: LEVOTHYROXINE 137 MCG PO SCH (19:43)
[2022-09-17] MEDS: BUPROPION 300 MG PO SCH (19:45)
[2022-09-18] MEDS: traMADol 50 MG Tab PO SCH (07:19)
[2022-09-18] MEDS: Acetaminophen 500 MG Tab PO SCH ×3 (07:20→19:21)
[2022-09-18] MEDS: guaiFENesin 600 MG Tab.ER PO SCH ×2 (07:21→19:20)
[2022-09-18] MEDS: Calcium Carbonate 750 MG Tab.Chew PO SCH (07:21)
[2022-09-18] MEDS: Cyanocobalamin (Vitamin B12) 1,000 MCG Tab PO SCH (07:21)
[2022-09-18] MEDS: Polyethylene Glycol 3350 Powder 510 GM Bot PO SCH (07:21)
[2022-09-18] MEDS: Albuterol/Ipratropium 3.0-0.5 MG/3 ML Neb Soln NEB SCH ×2 (07:22→19:19)
[2022-09-18] MEDS: Furosemide 20 MG Tab PO SCH (07:22)
[2022-09-18] MEDS: Potassium Chloride 20 MEQ Tab.ER PO SCH ×2 (07:22→17:21)
[2022-09-18] MEDS: Citalopram 20 MG Tab PO SCH (07:22)
[2022-09-18] MEDS: BUPROPION 300 MG PO SCH (19:20)
[2022-09-18] MEDS: LEVOTHYROXINE 137 MCG PO SCH (19:20)
[2022-09-19] MEDS: Potassium Chloride 20 MEQ Tab.ER PO SCH ×2 (08:16→17:22)
[2022-09-19] MEDS: Citalopram 20 MG Tab PO SCH (08:16)
[2022-09-19] MEDS: Furosemide 20 MG Tab PO SCH (08:16)
[2022-09-19] MEDS: Albuterol/Ipratropium 3.0-0.5 MG/3 ML Neb Soln NEB SCH ×2 (08:17→19:19)
[2022-09-19] MEDS: Polyethylene Glycol 3350 Powder 510 GM Bot PO SCH (08:17)
[2022-09-19] MEDS: Acetaminophen 500 MG Tab PO SCH ×3 (08:17→19:21)
[2022-09-19] MEDS: guaiFENesin 600 MG Tab.ER PO SCH ×2 (08:18→19:20)
[2022-09-19] MEDS: Calcium Carbonate 750 MG Tab.Chew PO SCH (08:18)
[2022-09-19] MEDS: Cyanocobalamin (Vitamin B12) 1,000 MCG Tab PO SCH (08:19)
[2022-09-19] MEDS: traMADol 50 MG Tab PO SCH (08:19)
[2022-09-19] MEDS: LEVOTHYROXINE 137 MCG PO SCH (19:19)
[2022-09-19] MEDS: BUPROPION 300 MG PO SCH (19:20)
[2022-09-20] MEDS: Potassium Chloride 20 MEQ Tab.ER PO SCH ×2 (07:03→17:43)
[2022-09-20] MEDS: Citalopram 20 MG Tab PO SCH (07:03)
[2022-09-20] MEDS: Albuterol/Ipratropium 3.0-0.5 MG/3 ML Neb Soln NEB SCH ×2 (07:03→19:15)
[2022-09-20] MEDS: Calcium Carbonate 750 MG Tab.Chew PO SCH (07:04)
[2022-09-20] MEDS: Polyethylene Glycol 3350 Powder 510 GM Bot PO SCH (07:04)
[2022-09-20] MEDS: Furosemide 20 MG Tab PO SCH (07:04)
[2022-09-20] MEDS: guaiFENesin 600 MG Tab.ER PO SCH ×2 (07:05→19:16)
[2022-09-20] MEDS: Cyanocobalamin (Vitamin B12) 1,000 MCG Tab PO SCH (07:05)
[2022-09-20] MEDS: traMADol 50 MG Tab PO SCH (07:06)
[2022-09-20] MEDS: Acetaminophen 500 MG Tab PO SCH ×3 (07:06→19:16)
[2022-09-20] MEDS: LEVOTHYROXINE 137 MCG PO SCH (19:15)
[2022-09-20] MEDS: BUPROPION 300 MG PO SCH (19:15)
[2022-09-20] MEDS: Menthol 10%/Methyl Salicylate 15% 85 GM Tube TOP PRN (19:17)
[2022-09-21] MEDS: Albuterol/Ipratropium 3.0-0.5 MG/3 ML Neb Soln NEB SCH ×2 (07:07→19:06)
[2022-09-21] MEDS: Potassium Chloride 20 MEQ Tab.ER PO SCH ×2 (07:07→17:17)
[2022-09-21] MEDS: Citalopram 20 MG Tab PO SCH (07:07)
[2022-09-21] MEDS: Furosemide 20 MG Tab PO SCH (07:08)
[2022-09-21] MEDS: Calcium Carbonate 750 MG Tab.Chew PO SCH (07:08)
[2022-09-21] MEDS: guaiFENesin 600 MG Tab.ER PO SCH ×2 (07:08→19:06)
[2022-09-21] MEDS: Polyethylene Glycol 3350 Powder 510 GM Bot PO SCH (07:08)
[2022-09-21] MEDS: Cyanocobalamin (Vitamin B12) 1,000 MCG Tab PO SCH (07:08)
[2022-09-21] MEDS: Acetaminophen 500 MG Tab PO SCH ×3 (07:09→19:07)
[2022-09-21] MEDS: traMADol 50 MG Tab PO SCH (07:10)
[2022-09-21] MEDS: BUPROPION 300 MG PO SCH (19:06)
[2022-09-21] MEDS: LEVOTHYROXINE 137 MCG PO SCH (19:06)
[2022-09-21] MEDS: Menthol 10%/Methyl Salicylate 15% 85 GM Tube TOP PRN (19:08)
[2022-09-22] MEDS: Polyethylene Glycol 3350 Powder 510 GM Bot PO SCH (07:05)
[2022-09-22] MEDS: Albuterol/Ipratropium 3.0-0.5 MG/3 ML Neb Soln NEB SCH ×2 (07:05→19:10)
[2022-09-22] MEDS: Furosemide 20 MG Tab PO SCH (07:06)
[2022-09-22] MEDS: guaiFENesin 600 MG Tab.ER PO SCH ×2 (07:06→19:10)
[2022-09-22] MEDS: Citalopram 20 MG Tab PO SCH (07:06)
[2022-09-22] MEDS: Potassium Chloride 20 MEQ Tab.ER PO SCH ×2 (07:06→17:13)
[2022-09-22] MEDS: Acetaminophen 500 MG Tab PO SCH ×3 (07:07→19:11)
[2022-09-22] MEDS: Calcium Carbonate 750 MG Tab.Chew PO SCH (07:07)
[2022-09-22] MEDS: traMADol 50 MG Tab PO SCH (07:08)
[2022-09-22] MEDS: Cyanocobalamin (Vitamin B12) 1,000 MCG Tab PO SCH (07:08)
[2022-09-22] MEDS: LEVOTHYROXINE 137 MCG PO SCH (19:10)
[2022-09-22] MEDS: BUPROPION 300 MG PO SCH (19:10)
[2022-09-22] MEDS: Menthol 10%/Methyl Salicylate 15% 85 GM Tube TOP PRN (19:11)
[2022-09-23] MEDS: Acetaminophen 500 MG Tab PO SCH ×3 (07:16→19:12)
[2022-09-23] MEDS: traMADol 50 MG Tab PO SCH (07:16)
[2022-09-23] MEDS: Cyanocobalamin (Vitamin B12) 1,000 MCG Tab PO SCH (07:17)
[2022-09-23] MEDS: Albuterol/Ipratropium 3.0-0.5 MG/3 ML Neb Soln NEB SCH ×2 (07:21→19:11)
[2022-09-23] MEDS: Potassium Chloride 20 MEQ Tab.ER PO SCH ×2 (07:21→17:10)
[2022-09-23] MEDS: Citalopram 20 MG Tab PO SCH (07:21)
[2022-09-23] MEDS: Polyethylene Glycol 3350 Powder 510 GM Bot PO SCH (07:22)
[2022-09-23] MEDS: Furosemide 20 MG Tab PO SCH (07:22)
[2022-09-23] MEDS: Calcium Carbonate 750 MG Tab.Chew PO SCH (07:23)
[2022-09-23] MEDS: guaiFENesin 600 MG Tab.ER PO SCH ×2 (09:50→19:11)
[2022-09-23] MEDS: LEVOTHYROXINE 137 MCG PO SCH (19:10)
[2022-09-23] MEDS: BUPROPION 300 MG PO SCH (19:10)
[2022-09-23] MEDS: Menthol 10%/Methyl Salicylate 15% 85 GM Tube TOP PRN (19:12)
[2022-09-24] MEDS: Albuterol/Ipratropium 3.0-0.5 MG/3 ML Neb Soln NEB SCH ×2 (07:44→19:12)
[2022-09-24] MEDS: Acetaminophen 500 MG Tab PO SCH ×3 (07:45→19:11)
[2022-09-24] MEDS: traMADol 50 MG Tab PO SCH (07:45)
[2022-09-24] MEDS: Calcium Carbonate 750 MG Tab.Chew PO SCH (07:46)
[2022-09-24] MEDS: guaiFENesin 600 MG Tab.ER PO SCH ×2 (07:46→19:11)
[2022-09-24] MEDS: Potassium Chloride 20 MEQ Tab.ER PO SCH ×2 (07:47→17:28)
[2022-09-24] MEDS: Citalopram 20 MG Tab PO SCH (07:47)
[2022-09-24] MEDS: Polyethylene Glycol 3350 Powder 510 GM Bot PO SCH (07:47)
[2022-09-24] MEDS: Cyanocobalamin (Vitamin B12) 1,000 MCG Tab PO SCH (07:47)
[2022-09-24] MEDS: Furosemide 20 MG Tab PO SCH (07:48)
[2022-09-24] MEDS: LEVOTHYROXINE 137 MCG PO SCH (19:11)
[2022-09-24] MEDS: BUPROPION 300 MG PO SCH (19:11)
[2022-09-25] MEDS: Citalopram 20 MG Tab PO SCH (07:50)
[2022-09-25] MEDS: Potassium Chloride 20 MEQ Tab.ER PO SCH ×2 (07:50→17:28)
[2022-09-25] MEDS: Furosemide 20 MG Tab PO SCH (07:51)
[2022-09-25] MEDS: Albuterol/Ipratropium 3.0-0.5 MG/3 ML Neb Soln NEB SCH ×2 (07:52→19:09)
[2022-09-25] MEDS: Polyethylene Glycol 3350 Powder 510 GM Bot PO SCH (07:52)
[2022-09-25] MEDS: guaiFENesin 600 MG Tab.ER PO SCH ×2 (07:53→19:10)
[2022-09-25] MEDS: Calcium Carbonate 750 MG Tab.Chew PO SCH (07:54)
[2022-09-25] MEDS: Cyanocobalamin (Vitamin B12) 1,000 MCG Tab PO SCH (07:56)
[2022-09-25] MEDS: Acetaminophen 500 MG Tab PO SCH ×3 (07:56→19:10)
[2022-09-25] MEDS: traMADol 50 MG Tab PO SCH (07:57)
[2022-09-25 18:56] LABS: APPEARANCE,URINE SLIGHTLY CLOUDY; BILIRUBIN,URINE NEGATIVE (NEGATIVE); COLOR,URINE YELLOW; GLUCOSE,URINE NEGATIVE (NEGATIVE); KETONES,URINE NEGATIVE (NEGATIVE); LEUKOCYTE ESTERASE,URINE NEGATIVE (NEGATIVE); NITRITE,URINE NEGATIVE (NEGATIVE); OCCULT BLOOD,URINE NEGATIVE (NEGATIVE); PH,URINE 5.5 (5.0-9.0); PROTEIN,URINE NEGATIVE (NEGATIVE); UROBILINOGEN,URINE 0.2 E.U./dL (0.2-1.0)
[2022-09-25] MEDS: BUPROPION 300 MG PO SCH (19:09)
[2022-09-25] MEDS: LEVOTHYROXINE 137 MCG PO SCH (19:09)
[2022-09-26] MEDS: Citalopram 20 MG Tab PO SCH (07:11)
[2022-09-26] MEDS: Furosemide 20 MG Tab PO SCH (07:11)
[2022-09-26] MEDS: Potassium Chloride 20 MEQ Tab.ER PO SCH ×2 (07:11→17:39)
[2022-09-26] MEDS: Calcium Carbonate 750 MG Tab.Chew PO SCH (07:12)
[2022-09-26] MEDS: Polyethylene Glycol 3350 Powder 510 GM Bot PO SCH (07:12)
[2022-09-26] MEDS: guaiFENesin 600 MG Tab.ER PO SCH ×2 (07:12→19:16)
[2022-09-26] MEDS: Acetaminophen 500 MG Tab PO SCH ×3 (07:13→19:16)
[2022-09-26] MEDS: Cyanocobalamin (Vitamin B12) 1,000 MCG Tab PO SCH (07:14)
[2022-09-26] MEDS: traMADol 50 MG Tab PO SCH (07:14)
[2022-09-26] MEDS: Albuterol/Ipratropium 3.0-0.5 MG/3 ML Neb Soln NEB SCH ×2 (07:15→19:15)
[2022-09-26] MEDS: Menthol 10%/Methyl Salicylate 15% 85 GM Tube TOP PRN (07:16)
[2022-09-26] MEDS: BUPROPION 300 MG PO SCH (19:15)
[2022-09-26] MEDS: LEVOTHYROXINE 137 MCG PO SCH (19:15)
[2022-09-27] MEDS: traMADol 50 MG Tab PO SCH (07:52)
[2022-09-27] MEDS: Acetaminophen 500 MG Tab PO SCH ×3 (07:53→20:05)
[2022-09-27] MEDS: guaiFENesin 600 MG Tab.ER PO SCH ×2 (07:53→20:04)
[2022-09-27] MEDS: Potassium Chloride 20 MEQ Tab.ER PO SCH ×2 (07:54→17:03)
[2022-09-27] MEDS: Cyanocobalamin (Vitamin B12) 1,000 MCG Tab PO SCH (07:54)
[2022-09-27] MEDS: Calcium Carbonate 750 MG Tab.Chew PO SCH (07:54)
[2022-09-27] MEDS: Polyethylene Glycol 3350 Powder 510 GM Bot PO SCH (07:54)
[2022-09-27] MEDS: Furosemide 20 MG Tab PO SCH (07:55)
[2022-09-27] MEDS: Albuterol/Ipratropium 3.0-0.5 MG/3 ML Neb Soln NEB SCH ×2 (07:55→20:03)
[2022-09-27] MEDS: Citalopram 20 MG Tab PO SCH (07:55)
[2022-09-27] MEDS: BUPROPION 300 MG PO SCH (20:04)
[2022-09-27] MEDS: LEVOTHYROXINE 137 MCG PO SCH (20:04)
[2022-09-28] MEDS: Albuterol/Ipratropium 3.0-0.5 MG/3 ML Neb Soln NEB SCH ×2 (07:48→20:15)
[2022-09-28] MEDS: Potassium Chloride 20 MEQ Tab.ER PO SCH ×2 (07:49→17:41)
[2022-09-28] MEDS: Citalopram 20 MG Tab PO SCH (07:49)
[2022-09-28] MEDS: Furosemide 20 MG Tab PO SCH (07:50)
[2022-09-28] MEDS: Polyethylene Glycol 3350 Powder 510 GM Bot PO SCH (07:51)
[2022-09-28] MEDS: guaiFENesin 600 MG Tab.ER PO SCH ×2 (07:52→20:16)
[2022-09-28] MEDS: Calcium Carbonate 750 MG Tab.Chew PO SCH (07:52)
[2022-09-28] MEDS: Acetaminophen 500 MG Tab PO SCH ×3 (07:53→20:16)
[2022-09-28] MEDS: traMADol 50 MG Tab PO SCH (07:54)
[2022-09-28] MEDS: Cyanocobalamin (Vitamin B12) 1,000 MCG Tab PO SCH (07:54)
[2022-09-28] MEDS: LEVOTHYROXINE 137 MCG PO SCH (20:15)
[2022-09-28] MEDS: BUPROPION 300 MG PO SCH (20:16)
[2022-09-29] MEDS: Furosemide 20 MG Tab PO SCH (08:08)
[2022-09-29] MEDS: Citalopram 20 MG Tab PO SCH (08:08)
[2022-09-29] MEDS: Potassium Chloride 20 MEQ Tab.ER PO SCH ×2 (08:08→17:48)
[2022-09-29] MEDS: Albuterol/Ipratropium 3.0-0.5 MG/3 ML Neb Soln NEB SCH ×2 (08:09→19:36)
[2022-09-29] MEDS: Polyethylene Glycol 3350 Powder 510 GM Bot PO SCH (08:09)
[2022-09-29] MEDS: traMADol 50 MG Tab PO SCH (08:10)
[2022-09-29] MEDS: Acetaminophen 500 MG Tab PO SCH ×3 (08:10→19:40)
[2022-09-29] MEDS: guaiFENesin 600 MG Tab.ER PO SCH ×2 (08:11→19:39)
[2022-09-29] MEDS: Calcium Carbonate 750 MG Tab.Chew PO SCH (08:11)
[2022-09-29] MEDS: Cyanocobalamin (Vitamin B12) 1,000 MCG Tab PO SCH (08:12)
[2022-09-29] MEDS: LEVOTHYROXINE 137 MCG PO SCH (19:39)
[2022-09-29] MEDS: BUPROPION 300 MG PO SCH (19:39)
[2022-09-30] MEDS: traMADol 50 MG Tab PO SCH (07:44)
[2022-09-30] MEDS: Acetaminophen 500 MG Tab PO SCH ×3 (07:44→19:13)
[2022-09-30] MEDS: Calcium Carbonate 750 MG Tab.Chew PO SCH (07:46)
[2022-09-30] MEDS: guaiFENesin 600 MG Tab.ER PO SCH ×2 (07:46→19:13)
[2022-09-30] MEDS: Cyanocobalamin (Vitamin B12) 1,000 MCG Tab PO SCH (07:46)
[2022-09-30] MEDS: Polyethylene Glycol 3350 Powder 510 GM Bot PO SCH (07:47)
[2022-09-30] MEDS: Albuterol/Ipratropium 3.0-0.5 MG/3 ML Neb Soln NEB SCH ×2 (07:47→19:12)
[2022-09-30] MEDS: Potassium Chloride 20 MEQ Tab.ER PO SCH ×2 (07:47→17:11)
[2022-09-30] MEDS: Citalopram 20 MG Tab PO SCH (07:47)
[2022-09-30] MEDS: Furosemide 20 MG Tab PO SCH (07:48)
[2022-09-30] MEDS: LEVOTHYROXINE 137 MCG PO SCH (19:13)
[2022-09-30] MEDS: BUPROPION 300 MG PO SCH (19:13)
[2022-09-30] MEDS: Menthol 10%/Methyl Salicylate 15% 85 GM Tube TOP PRN (19:14)
[2022-10-01] MEDS: traMADol 50 MG Tab PO SCH (07:32)
[2022-10-01] MEDS: Acetaminophen 500 MG Tab PO SCH ×3 (07:32→19:18)
[2022-10-01] MEDS: Calcium Carbonate 750 MG Tab.Chew PO SCH (07:33)
[2022-10-01] MEDS: Cyanocobalamin (Vitamin B12) 1,000 MCG Tab PO SCH (07:33)
[2022-10-01] MEDS: guaiFENesin 600 MG Tab.ER PO SCH ×2 (07:33→19:18)
[2022-10-01] MEDS: Furosemide 20 MG Tab PO SCH (07:34)
[2022-10-01] MEDS: Potassium Chloride 20 MEQ Tab.ER PO SCH ×2 (07:34→17:14)
[2022-10-01] MEDS: Citalopram 20 MG Tab PO SCH (07:34)
[2022-10-01] MEDS: Albuterol/Ipratropium 3.0-0.5 MG/3 ML Neb Soln NEB SCH ×2 (07:34→19:17)
[2022-10-01] MEDS: Polyethylene Glycol 3350 Powder 510 GM Bot PO SCH (07:35)
[2022-10-01] MEDS: LEVOTHYROXINE 137 MCG PO SCH (19:17)
[2022-10-01] MEDS: BUPROPION 300 MG PO SCH (19:17)
[2022-10-02] MEDS: Citalopram 20 MG Tab PO SCH (07:35)
[2022-10-02] MEDS: Potassium Chloride 20 MEQ Tab.ER PO SCH ×2 (07:35→17:26)
[2022-10-02] MEDS: Albuterol/Ipratropium 3.0-0.5 MG/3 ML Neb Soln NEB SCH ×2 (07:35→19:26)
[2022-10-02] MEDS: Furosemide 20 MG Tab PO SCH (07:36)
[2022-10-02] MEDS: Polyethylene Glycol 3350 Powder 510 GM Bot PO SCH (07:36)
[2022-10-02] MEDS: Calcium Carbonate 750 MG Tab.Chew PO SCH (07:37)
[2022-10-02] MEDS: Acetaminophen 500 MG Tab PO SCH ×3 (07:37→19:27)
[2022-10-02] MEDS: guaiFENesin 600 MG Tab.ER PO SCH ×2 (07:37→19:27)
[2022-10-02] MEDS: traMADol 50 MG Tab PO SCH (07:38)
[2022-10-02] MEDS: Cyanocobalamin (Vitamin B12) 1,000 MCG Tab PO SCH (07:39)
[2022-10-02] MEDS: LEVOTHYROXINE 137 MCG PO SCH (19:26)
[2022-10-02] MEDS: BUPROPION 300 MG PO SCH (19:27)
[2022-10-03] MEDS: traMADol 50 MG Tab PO SCH (07:39)
[2022-10-03] MEDS: Acetaminophen 500 MG Tab PO SCH ×3 (07:40→19:19)
[2022-10-03] MEDS: Cyanocobalamin (Vitamin B12) 1,000 MCG Tab PO SCH (07:41)
[2022-10-03] MEDS: Albuterol/Ipratropium 3.0-0.5 MG/3 ML Neb Soln NEB SCH ×2 (07:41→19:18)
[2022-10-03] MEDS: guaiFENesin 600 MG Tab.ER PO SCH ×2 (07:41→19:19)
[2022-10-03] MEDS: Polyethylene Glycol 3350 Powder 510 GM Bot PO SCH (07:41)
[2022-10-03] MEDS: Potassium Chloride 20 MEQ Tab.ER PO SCH ×2 (07:42→17:08)
[2022-10-03] MEDS: Furosemide 20 MG Tab PO SCH (07:42)
[2022-10-03] MEDS: Citalopram 20 MG Tab PO SCH (07:42)
[2022-10-03] MEDS: Calcium Carbonate 750 MG Tab.Chew PO SCH (07:43)
[2022-10-03] MEDS: LEVOTHYROXINE 137 MCG PO SCH (19:18)
[2022-10-03] MEDS: BUPROPION 300 MG PO SCH (19:19)
[2022-10-04] MEDS: Potassium Chloride 20 MEQ Tab.ER PO SCH ×2 (08:24→17:01)
[2022-10-04] MEDS: Furosemide 20 MG Tab PO SCH (08:24)
[2022-10-04] MEDS: Citalopram 20 MG Tab PO SCH (08:24)
[2022-10-04] MEDS: guaiFENesin 600 MG Tab.ER PO SCH ×2 (08:25→19:12)
[2022-10-04] MEDS: Albuterol/Ipratropium 3.0-0.5 MG/3 ML Neb Soln NEB SCH ×2 (08:25→19:13)
[2022-10-04] MEDS: Calcium Carbonate 750 MG Tab.Chew PO SCH (08:25)
[2022-10-04] MEDS: Acetaminophen 500 MG Tab PO SCH ×3 (08:26→19:12)
[2022-10-04] MEDS: Polyethylene Glycol 3350 Powder 510 GM Bot PO SCH (08:27)
[2022-10-04] MEDS: Cyanocobalamin (Vitamin B12) 1,000 MCG Tab PO SCH (08:27)
[2022-10-04] MEDS: traMADol 50 MG Tab PO SCH (08:28)
[2022-10-04] MEDS: LEVOTHYROXINE 137 MCG PO SCH (19:13)
[2022-10-04] MEDS: BUPROPION 300 MG PO SCH (19:13)
[2022-10-05] MEDS: Furosemide 20 MG Tab PO SCH (07:16)
[2022-10-05] MEDS: Citalopram 20 MG Tab PO SCH (07:16)
[2022-10-05] MEDS: Potassium Chloride 20 MEQ Tab.ER PO SCH ×2 (07:16→17:08)
[2022-10-05] MEDS: Calcium Carbonate 750 MG Tab.Chew PO SCH (07:17)
[2022-10-05] MEDS: guaiFENesin 600 MG Tab.ER PO SCH ×2 (07:17→19:06)
[2022-10-05] MEDS: Albuterol/Ipratropium 3.0-0.5 MG/3 ML Neb Soln NEB SCH ×2 (07:17→19:07)
[2022-10-05] MEDS: traMADol 50 MG Tab PO SCH (07:18)
[2022-10-05] MEDS: Cyanocobalamin (Vitamin B12) 1,000 MCG Tab PO SCH (07:18)
[2022-10-05] MEDS: Acetaminophen 500 MG Tab PO SCH ×3 (07:19→19:06)
[2022-10-05] MEDS: Polyethylene Glycol 3350 Powder 510 GM Bot PO SCH (07:19)
[2022-10-05] MEDS: LEVOTHYROXINE 137 MCG PO SCH (19:06)
[2022-10-05] MEDS: BUPROPION 300 MG PO SCH (19:07)
[2022-10-06] MEDS: Polyethylene Glycol 3350 Powder 510 GM Bot PO SCH (07:43)
[2022-10-06] MEDS: Calcium Carbonate 750 MG Tab.Chew PO SCH (07:44)
[2022-10-06] MEDS: Acetaminophen 500 MG Tab PO SCH ×3 (07:44→19:19)
[2022-10-06] MEDS: traMADol 50 MG Tab PO SCH (07:45)
[2022-10-06] MEDS: Cyanocobalamin (Vitamin B12) 1,000 MCG Tab PO SCH (07:46)
[2022-10-06] MEDS: Citalopram 20 MG Tab PO SCH (07:46)
[2022-10-06] MEDS: Furosemide 20 MG Tab PO SCH (07:46)
[2022-10-06] MEDS: Albuterol/Ipratropium 3.0-0.5 MG/3 ML Neb Soln NEB SCH ×2 (07:46→19:17)
[2022-10-06] MEDS: Potassium Chloride 20 MEQ Tab.ER PO SCH ×2 (07:46→17:16)
[2022-10-06] MEDS: guaiFENesin 600 MG Tab.ER PO SCH ×2 (07:48→19:18)
[2022-10-06] MEDS: BUPROPION 300 MG PO SCH (19:18)
[2022-10-06] MEDS: LEVOTHYROXINE 137 MCG PO SCH (19:18)
[2022-10-07] MEDS: Acetaminophen 500 MG Tab PO SCH ×3 (07:09→19:33)
[2022-10-07] MEDS: traMADol 50 MG Tab PO SCH (07:09)
[2022-10-07] MEDS: Cyanocobalamin (Vitamin B12) 1,000 MCG Tab PO SCH (07:10)
[2022-10-07] MEDS: Calcium Carbonate 750 MG Tab.Chew PO SCH (07:10)
[2022-10-07] MEDS: Polyethylene Glycol 3350 Powder 510 GM Bot PO SCH (07:10)
[2022-10-07] MEDS: Furosemide 20 MG Tab PO SCH (07:11)
[2022-10-07] MEDS: Citalopram 20 MG Tab PO SCH (07:11)
[2022-10-07] MEDS: Albuterol/Ipratropium 3.0-0.5 MG/3 ML Neb Soln NEB SCH ×2 (07:11→19:32)
[2022-10-07] MEDS: Potassium Chloride 20 MEQ Tab.ER PO SCH ×2 (07:11→17:26)
[2022-10-07] MEDS: guaiFENesin 600 MG Tab.ER PO SCH ×2 (07:12→19:33)
[2022-10-07] MEDS: LEVOTHYROXINE 137 MCG PO SCH (19:32)
[2022-10-07] MEDS: BUPROPION 300 MG PO SCH (19:33)
[2022-10-07] MEDS: traMADol 50 MG Tab PO PRN (19:34)
[2022-10-08] MEDS: Citalopram 20 MG Tab PO SCH (08:24)
[2022-10-08] MEDS: Potassium Chloride 20 MEQ Tab.ER PO SCH ×2 (08:25→17:23)
[2022-10-08] MEDS: Furosemide 20 MG Tab PO SCH (08:25)
[2022-10-08] MEDS: Polyethylene Glycol 3350 Powder 510 GM Bot PO SCH (08:26)
[2022-10-08] MEDS: Albuterol/Ipratropium 3.0-0.5 MG/3 ML Neb Soln NEB SCH ×2 (08:26→21:32)
[2022-10-08] MEDS: guaiFENesin 600 MG Tab.ER PO SCH ×2 (08:27→21:32)
[2022-10-08] MEDS: Calcium Carbonate 750 MG Tab.Chew PO SCH (08:27)
[2022-10-08] MEDS: Acetaminophen 500 MG Tab PO SCH ×3 (08:28→21:33)
[2022-10-08] MEDS: traMADol 50 MG Tab PO SCH (08:29)
[2022-10-08] MEDS: Cyanocobalamin (Vitamin B12) 1,000 MCG Tab PO SCH (08:29)
[2022-10-08] MEDS: BUPROPION 300 MG PO SCH (21:32)
[2022-10-08] MEDS: LEVOTHYROXINE 137 MCG PO SCH (21:32)
[2022-10-09] MEDS: traMADol 50 MG Tab PO SCH (07:43)
[2022-10-09] MEDS: Albuterol/Ipratropium 3.0-0.5 MG/3 ML Neb Soln NEB SCH ×2 (07:43→19:12)
[2022-10-09] MEDS: Acetaminophen 500 MG Tab PO SCH ×3 (07:44→19:14)
[2022-10-09] MEDS: Calcium Carbonate 750 MG Tab.Chew PO SCH (07:44)
[2022-10-09] MEDS: guaiFENesin 600 MG Tab.ER PO SCH ×2 (07:44→19:14)
[2022-10-09] MEDS: Potassium Chloride 20 MEQ Tab.ER PO SCH ×2 (07:45→17:22)
[2022-10-09] MEDS: Furosemide 20 MG Tab PO SCH (07:45)
[2022-10-09] MEDS: Citalopram 20 MG Tab PO SCH (07:45)
[2022-10-09] MEDS: Cyanocobalamin (Vitamin B12) 1,000 MCG Tab PO SCH (07:45)
[2022-10-09] MEDS: Polyethylene Glycol 3350 Powder 510 GM Bot PO SCH (07:46)
[2022-10-09] MEDS: LEVOTHYROXINE 137 MCG PO SCH (19:14)
[2022-10-09] MEDS: BUPROPION 300 MG PO SCH (19:14)
[2022-10-09] MEDS: Menthol 10%/Methyl Salicylate 15% 85 GM Tube TOP PRN (19:15)
[2022-10-10] MEDS: Citalopram 20 MG Tab PO SCH (07:26)
[2022-10-10] MEDS: Potassium Chloride 20 MEQ Tab.ER PO SCH ×2 (07:26→17:47)
[2022-10-10] MEDS: Furosemide 20 MG Tab PO SCH (07:27)
[2022-10-10] MEDS: Albuterol/Ipratropium 3.0-0.5 MG/3 ML Neb Soln NEB SCH ×2 (07:28→19:05)
[2022-10-10] MEDS: Polyethylene Glycol 3350 Powder 510 GM Bot PO SCH (07:29)
[2022-10-10] MEDS: Calcium Carbonate 750 MG Tab.Chew PO SCH (07:30)
[2022-10-10] MEDS: guaiFENesin 600 MG Tab.ER PO SCH ×2 (07:30→19:08)
[2022-10-10] MEDS: Cyanocobalamin (Vitamin B12) 1,000 MCG Tab PO SCH (07:31)
[2022-10-10] MEDS: Acetaminophen 500 MG Tab PO SCH ×3 (07:31→19:07)
[2022-10-10] MEDS: traMADol 50 MG Tab PO SCH (07:32)
[2022-10-10] MEDS: LEVOTHYROXINE 137 MCG PO SCH (19:06)
[2022-10-10] MEDS: BUPROPION 300 MG PO SCH (19:06)
[2022-10-10] MEDS: Menthol 10%/Methyl Salicylate 15% 85 GM Tube TOP PRN (19:08)
[2022-10-11] MEDS: Potassium Chloride 20 MEQ Tab.ER PO SCH ×2 (07:15→17:55)
[2022-10-11] MEDS: Citalopram 20 MG Tab PO SCH (07:16)
[2022-10-11] MEDS: Furosemide 20 MG Tab PO SCH (07:16)
[2022-10-11] MEDS: Acetaminophen 500 MG Tab PO SCH ×3 (07:17→19:09)
[2022-10-11] MEDS: Calcium Carbonate 750 MG Tab.Chew PO SCH (07:17)
[2022-10-11] MEDS: Cyanocobalamin (Vitamin B12) 1,000 MCG Tab PO SCH (07:17)
[2022-10-11] MEDS: guaiFENesin 600 MG Tab.ER PO SCH ×2 (07:18→19:08)
[2022-10-11] MEDS: Polyethylene Glycol 3350 Powder 510 GM Bot PO SCH (07:18)
[2022-10-11] MEDS: traMADol 50 MG Tab PO SCH (07:20)
[2022-10-11] MEDS: Albuterol/Ipratropium 3.0-0.5 MG/3 ML Neb Soln NEB SCH ×2 (07:20→19:08)
[2022-10-11] MEDS: LEVOTHYROXINE 137 MCG PO SCH (19:08)
[2022-10-11] MEDS: BUPROPION 300 MG PO SCH (19:08)
[2022-10-11] MEDS: Menthol 10%/Methyl Salicylate 15% 85 GM Tube TOP PRN (19:09)
[2022-10-12] MEDS: Furosemide 20 MG Tab PO SCH (07:16)
[2022-10-12] MEDS: Potassium Chloride 20 MEQ Tab.ER PO SCH ×2 (07:16→17:36)
[2022-10-12] MEDS: Citalopram 20 MG Tab PO SCH (07:16)
[2022-10-12] MEDS: Albuterol/Ipratropium 3.0-0.5 MG/3 ML Neb Soln NEB SCH ×2 (07:17→19:07)
[2022-10-12] MEDS: Calcium Carbonate 750 MG Tab.Chew PO SCH (07:17)
[2022-10-12] MEDS: Acetaminophen 500 MG Tab PO SCH ×3 (07:18→19:08)
[2022-10-12] MEDS: guaiFENesin 600 MG Tab.ER PO SCH ×2 (07:18→19:08)
[2022-10-12] MEDS: Cyanocobalamin (Vitamin B12) 1,000 MCG Tab PO SCH (07:19)
[2022-10-12] MEDS: Polyethylene Glycol 3350 Powder 510 GM Bot PO SCH (07:19)
[2022-10-12] MEDS: traMADol 50 MG Tab PO SCH (07:19)
[2022-10-12] MEDS: BUPROPION 300 MG PO SCH (19:07)
[2022-10-12] MEDS: LEVOTHYROXINE 137 MCG PO SCH (19:07)
[2022-10-12] MEDS: Menthol 10%/Methyl Salicylate 15% 85 GM Tube TOP PRN (19:09)
[2022-10-13] MEDS: Potassium Chloride 20 MEQ Tab.ER PO SCH ×2 (07:07→17:42)
[2022-10-13] MEDS: Polyethylene Glycol 3350 Powder 510 GM Bot PO SCH (07:07)
[2022-10-13] MEDS: Citalopram 20 MG Tab PO SCH (07:07)
[2022-10-13] MEDS: Albuterol/Ipratropium 3.0-0.5 MG/3 ML Neb Soln NEB SCH ×2 (07:08→19:05)
[2022-10-13] MEDS: guaiFENesin 600 MG Tab.ER PO SCH ×2 (07:08→19:06)
[2022-10-13] MEDS: Furosemide 20 MG Tab PO SCH (07:08)
[2022-10-13] MEDS: Calcium Carbonate 750 MG Tab.Chew PO SCH (07:08)
[2022-10-13] MEDS: Cyanocobalamin (Vitamin B12) 1,000 MCG Tab PO SCH (07:09)
[2022-10-13] MEDS: Acetaminophen 500 MG Tab PO SCH ×3 (07:09→19:06)
[2022-10-13] MEDS: traMADol 50 MG Tab PO SCH (07:10)
[2022-10-13] MEDS: LEVOTHYROXINE 137 MCG PO SCH (19:06)
[2022-10-13] MEDS: BUPROPION 300 MG PO SCH (19:06)
[2022-10-13] MEDS: Menthol 10%/Methyl Salicylate 15% 85 GM Tube TOP PRN (19:07)
[2022-10-14] MEDS: Albuterol/Ipratropium 3.0-0.5 MG/3 ML Neb Soln NEB SCH ×2 (07:23→19:11)
[2022-10-14] MEDS: Potassium Chloride 20 MEQ Tab.ER PO SCH ×2 (07:23→17:32)
[2022-10-14] MEDS: Citalopram 20 MG Tab PO SCH (07:23)
[2022-10-14] MEDS: Furosemide 20 MG Tab PO SCH (07:23)
[2022-10-14] MEDS: Polyethylene Glycol 3350 Powder 510 GM Bot PO SCH (07:24)
[2022-10-14] MEDS: guaiFENesin 600 MG Tab.ER PO SCH ×2 (07:24→19:12)
[2022-10-14] MEDS: Acetaminophen 500 MG Tab PO SCH ×3 (07:25→19:13)
[2022-10-14] MEDS: Calcium Carbonate 750 MG Tab.Chew PO SCH (07:25)
[2022-10-14] MEDS: Cyanocobalamin (Vitamin B12) 1,000 MCG Tab PO SCH (07:26)
[2022-10-14] MEDS: traMADol 50 MG Tab PO SCH (07:29)
[2022-10-14] MEDS: BUPROPION 300 MG PO SCH (19:12)
[2022-10-14] MEDS: LEVOTHYROXINE 137 MCG PO SCH (19:12)
[2022-10-15] MEDS: Acetaminophen 500 MG Tab PO SCH ×3 (07:38→19:23)
[2022-10-15] MEDS: traMADol 50 MG Tab PO SCH (07:38)
[2022-10-15] MEDS: Polyethylene Glycol 3350 Powder 510 GM Bot PO SCH (07:39)
[2022-10-15] MEDS: Albuterol/Ipratropium 3.0-0.5 MG/3 ML Neb Soln NEB SCH ×2 (07:42→19:23)
[2022-10-15] MEDS: Calcium Carbonate 750 MG Tab.Chew PO SCH (07:42)
[2022-10-15] MEDS: Cyanocobalamin (Vitamin B12) 1,000 MCG Tab PO SCH (07:42)
[2022-10-15] MEDS: guaiFENesin 600 MG Tab.ER PO SCH ×2 (07:43→19:23)
[2022-10-15] MEDS: Citalopram 20 MG Tab PO SCH (07:43)
[2022-10-15] MEDS: Potassium Chloride 20 MEQ Tab.ER PO SCH ×2 (07:43→17:27)
[2022-10-15] MEDS: Furosemide 20 MG Tab PO SCH (07:44)
[2022-10-15] MEDS: LEVOTHYROXINE 137 MCG PO SCH (19:23)
[2022-10-15] MEDS: BUPROPION 300 MG PO SCH (19:23)
[2022-10-15] MEDS: Menthol 10%/Methyl Salicylate 15% 85 GM Tube TOP PRN (19:24)
[2022-10-16] MEDS: traMADol 50 MG Tab PO SCH (07:27)
[2022-10-16] MEDS: Acetaminophen 500 MG Tab PO SCH ×3 (07:28→19:47)
[2022-10-16] MEDS: Calcium Carbonate 750 MG Tab.Chew PO SCH (07:28)
[2022-10-16] MEDS: Cyanocobalamin (Vitamin B12) 1,000 MCG Tab PO SCH (07:28)
[2022-10-16] MEDS: Albuterol/Ipratropium 3.0-0.5 MG/3 ML Neb Soln NEB SCH ×2 (07:29→19:45)
[2022-10-16] MEDS: Citalopram 20 MG Tab PO SCH (07:29)
[2022-10-16] MEDS: Potassium Chloride 20 MEQ Tab.ER PO SCH ×2 (07:29→17:14)
[2022-10-16] MEDS: Polyethylene Glycol 3350 Powder 510 GM Bot PO SCH (07:30)
[2022-10-16] MEDS: guaiFENesin 600 MG Tab.ER PO SCH ×2 (07:30→19:46)
[2022-10-16] MEDS: Furosemide 20 MG Tab PO SCH (07:30)
[2022-10-16] MEDS: LEVOTHYROXINE 137 MCG PO SCH (19:46)
[2022-10-16] MEDS: BUPROPION 300 MG PO SCH (19:47)
[2022-10-17] MEDS: traMADol 50 MG Tab PO SCH (07:41)
[2022-10-17] MEDS: Acetaminophen 500 MG Tab PO SCH ×3 (07:46→19:18)
[2022-10-17] MEDS: Polyethylene Glycol 3350 Powder 510 GM Bot PO SCH (07:46)
[2022-10-17] MEDS: Calcium Carbonate 750 MG Tab.Chew PO SCH (07:47)
[2022-10-17] MEDS: Albuterol/Ipratropium 3.0-0.5 MG/3 ML Neb Soln NEB SCH ×2 (07:47→19:17)
[2022-10-17] MEDS: Furosemide 20 MG Tab PO SCH (07:48)
[2022-10-17] MEDS: Potassium Chloride 20 MEQ Tab.ER PO SCH ×2 (07:48→17:06)
[2022-10-17] MEDS: guaiFENesin 600 MG Tab.ER PO SCH ×2 (07:48→19:18)
[2022-10-17] MEDS: Citalopram 20 MG Tab PO SCH (07:48)
[2022-10-17] MEDS: Cyanocobalamin (Vitamin B12) 1,000 MCG Tab PO SCH (07:49)
[2022-10-17] MEDS: LEVOTHYROXINE 137 MCG PO SCH (19:17)
[2022-10-17] MEDS: BUPROPION 300 MG PO SCH (19:18)
[2022-10-17] MEDS: traMADol 50 MG Tab PO PRN (19:19)
[2022-10-17] MEDS: Menthol 10%/Methyl Salicylate 15% 85 GM Tube TOP PRN (19:20)
[2022-10-18] MEDS: Potassium Chloride 20 MEQ Tab.ER PO SCH ×2 (07:56→18:02)
[2022-10-18] MEDS: Citalopram 20 MG Tab PO SCH (07:56)
[2022-10-18] MEDS: Furosemide 20 MG Tab PO SCH (07:56)
[2022-10-18] MEDS: Albuterol/Ipratropium 3.0-0.5 MG/3 ML Neb Soln NEB SCH ×2 (07:57→19:47)
[2022-10-18] MEDS: Polyethylene Glycol 3350 Powder 510 GM Bot PO SCH (07:57)
[2022-10-18] MEDS: guaiFENesin 600 MG Tab.ER PO SCH ×2 (07:57→19:47)
[2022-10-18] MEDS: Acetaminophen 500 MG Tab PO SCH ×3 (07:58→19:48)
[2022-10-18] MEDS: Calcium Carbonate 750 MG Tab.Chew PO SCH (07:58)
[2022-10-18] MEDS: Cyanocobalamin (Vitamin B12) 1,000 MCG Tab PO SCH (07:58)
[2022-10-18] MEDS: traMADol 50 MG Tab PO SCH (07:59)
[2022-10-18] MEDS: LEVOTHYROXINE 137 MCG PO SCH (19:47)
[2022-10-18] MEDS: BUPROPION 300 MG PO SCH (19:48)
[2022-10-19] MEDS: Furosemide 20 MG Tab PO SCH (08:27)
[2022-10-19] MEDS: Citalopram 20 MG Tab PO SCH (08:27)
[2022-10-19] MEDS: Potassium Chloride 20 MEQ Tab.ER PO SCH ×2 (08:27→17:51)
[2022-10-19] MEDS: Albuterol/Ipratropium 3.0-0.5 MG/3 ML Neb Soln NEB PRN (08:28)
[2022-10-19] MEDS: Albuterol/Ipratropium 3.0-0.5 MG/3 ML Neb Soln NEB SCH ×2 (08:28→19:50)
[2022-10-19] MEDS: Calcium Carbonate 750 MG Tab.Chew PO SCH (08:29)
[2022-10-19] MEDS: guaiFENesin 600 MG Tab.ER PO SCH ×2 (08:29→19:51)
[2022-10-19] MEDS: Polyethylene Glycol 3350 Powder 510 GM Bot PO SCH (08:29)
[2022-10-19] MEDS: Cyanocobalamin (Vitamin B12) 1,000 MCG Tab PO SCH (08:30)
[2022-10-19] MEDS: Acetaminophen 500 MG Tab PO SCH ×3 (08:30→19:52)
[2022-10-19] MEDS: traMADol 50 MG Tab PO SCH (08:31)
[2022-10-19] MEDS: LEVOTHYROXINE 137 MCG PO SCH (19:51)
[2022-10-19] MEDS: BUPROPION 300 MG PO SCH (19:52)
[2022-10-20] MEDS: Potassium Chloride 20 MEQ Tab.ER PO SCH ×2 (08:00→18:02)
[2022-10-20] MEDS: Furosemide 20 MG Tab PO SCH (08:07)
[2022-10-20] MEDS: Citalopram 20 MG Tab PO SCH (08:07)
[2022-10-20] MEDS: Albuterol/Ipratropium 3.0-0.5 MG/3 ML Neb Soln NEB SCH ×2 (08:08→19:40)
[2022-10-20] MEDS: Polyethylene Glycol 3350 Powder 510 GM Bot PO SCH (08:08)
[2022-10-20] MEDS: Calcium Carbonate 750 MG Tab.Chew PO SCH (08:09)
[2022-10-20] MEDS: Acetaminophen 500 MG Tab PO SCH ×3 (08:09→19:43)
[2022-10-20] MEDS: guaiFENesin 600 MG Tab.ER PO SCH ×2 (08:09→19:42)
[2022-10-20] MEDS: Cyanocobalamin (Vitamin B12) 1,000 MCG Tab PO SCH (08:09)
[2022-10-20] MEDS: traMADol 50 MG Tab PO SCH (08:10)
[2022-10-20] MEDS: LEVOTHYROXINE 137 MCG PO SCH (19:42)
[2022-10-20] MEDS: BUPROPION 300 MG PO SCH (19:42)
[2022-10-21] MEDS: Citalopram 20 MG Tab PO SCH (08:40)
[2022-10-21] MEDS: Potassium Chloride 20 MEQ Tab.ER PO SCH ×2 (08:40→18:17)
[2022-10-21] MEDS: Furosemide 20 MG Tab PO SCH (08:40)
[2022-10-21] MEDS: Albuterol/Ipratropium 3.0-0.5 MG/3 ML Neb Soln NEB SCH ×2 (08:41→19:16)
[2022-10-21] MEDS: Polyethylene Glycol 3350 Powder 510 GM Bot PO SCH (08:41)
[2022-10-21] MEDS: Calcium Carbonate 750 MG Tab.Chew PO SCH (08:42)
[2022-10-21] MEDS: Acetaminophen 500 MG Tab PO SCH ×3 (08:42→19:17)
[2022-10-21] MEDS: guaiFENesin 600 MG Tab.ER PO SCH ×2 (08:42→19:17)
[2022-10-21] MEDS: Cyanocobalamin (Vitamin B12) 1,000 MCG Tab PO SCH (08:43)
[2022-10-21] MEDS: traMADol 50 MG Tab PO SCH (08:44)
[2022-10-21] MEDS: LEVOTHYROXINE 137 MCG PO SCH (19:16)
[2022-10-21] MEDS: BUPROPION 300 MG PO SCH (19:16)
[2022-10-21] MEDS: Menthol 10%/Methyl Salicylate 15% 85 GM Tube TOP PRN (19:18)
[2022-10-22] MEDS: Polyethylene Glycol 3350 Powder 510 GM Bot PO SCH (07:30)
[2022-10-22] MEDS: Albuterol/Ipratropium 3.0-0.5 MG/3 ML Neb Soln NEB SCH ×2 (07:30→19:18)
[2022-10-22] MEDS: Furosemide 20 MG Tab PO SCH (07:31)
[2022-10-22] MEDS: Citalopram 20 MG Tab PO SCH (07:31)
[2022-10-22] MEDS: Potassium Chloride 20 MEQ Tab.ER PO SCH ×2 (07:31→17:07)
[2022-10-22] MEDS: guaiFENesin 600 MG Tab.ER PO SCH ×2 (07:32→19:19)
[2022-10-22] MEDS: Calcium Carbonate 750 MG Tab.Chew PO SCH (07:32)
[2022-10-22] MEDS: traMADol 50 MG Tab PO SCH (07:34)
[2022-10-22] MEDS: Acetaminophen 500 MG Tab PO SCH ×3 (07:35→19:19)
[2022-10-22] MEDS: Cyanocobalamin (Vitamin B12) 1,000 MCG Tab PO SCH (07:35)
[2022-10-22] MEDS: LEVOTHYROXINE 137 MCG PO SCH (19:18)
[2022-10-22] MEDS: BUPROPION 300 MG PO SCH (19:19)
[2022-10-22] MEDS: Menthol 10%/Methyl Salicylate 15% 85 GM Tube TOP PRN (19:25)
[2022-10-23] MEDS: Citalopram 20 MG Tab PO SCH (08:04)
[2022-10-23] MEDS: Polyethylene Glycol 3350 Powder 510 GM Bot PO SCH (08:05)
[2022-10-23] MEDS: Albuterol/Ipratropium 3.0-0.5 MG/3 ML Neb Soln NEB SCH ×2 (08:05→19:42)
[2022-10-23] MEDS: Furosemide 20 MG Tab PO SCH (08:05)
[2022-10-23] MEDS: Potassium Chloride 20 MEQ Tab.ER PO SCH ×2 (08:05→18:19)
[2022-10-23] MEDS: Cyanocobalamin (Vitamin B12) 1,000 MCG Tab PO SCH (08:06)
[2022-10-23] MEDS: Calcium Carbonate 750 MG Tab.Chew PO SCH (08:06)
[2022-10-23] MEDS: guaiFENesin 600 MG Tab.ER PO SCH ×2 (08:06→19:42)
[2022-10-23] MEDS: Acetaminophen 500 MG Tab PO SCH ×3 (08:07→19:42)
[2022-10-23] MEDS: traMADol 50 MG Tab PO SCH (08:11)
[2022-10-23] MEDS: LEVOTHYROXINE 137 MCG PO SCH (19:42)
[2022-10-23] MEDS: BUPROPION 300 MG PO SCH (19:42)
[2022-10-23] MEDS: Menthol 10%/Methyl Salicylate 15% 85 GM Tube TOP PRN (19:43)
[2022-10-24] MEDS: Furosemide 20 MG Tab PO SCH (08:27)
[2022-10-24] MEDS: Potassium Chloride 20 MEQ Tab.ER PO SCH ×2 (08:27→18:07)
[2022-10-24] MEDS: Citalopram 20 MG Tab PO SCH (08:28)
[2022-10-24] MEDS: Polyethylene Glycol 3350 Powder 510 GM Bot PO SCH (08:29)
[2022-10-24] MEDS: Albuterol/Ipratropium 3.0-0.5 MG/3 ML Neb Soln NEB SCH ×2 (08:30→19:21)
[2022-10-24] MEDS: guaiFENesin 600 MG Tab.ER PO SCH ×2 (08:30→19:21)
[2022-10-24] MEDS: Calcium Carbonate 750 MG Tab.Chew PO SCH (08:30)
[2022-10-24] MEDS: Acetaminophen 500 MG Tab PO SCH ×3 (08:31→19:21)
[2022-10-24] MEDS: Cyanocobalamin (Vitamin B12) 1,000 MCG Tab PO SCH (08:31)
[2022-10-24] MEDS: traMADol 50 MG Tab PO SCH (08:33)
[2022-10-24] MEDS: BUPROPION 300 MG PO SCH (19:20)
[2022-10-24] MEDS: LEVOTHYROXINE 137 MCG PO SCH (19:20)
[2022-10-25] MEDS: Polyethylene Glycol 3350 Powder 510 GM Bot PO SCH (07:28)
[2022-10-25] MEDS: traMADol 50 MG Tab PO SCH (07:29)
[2022-10-25] MEDS: Acetaminophen 500 MG Tab PO SCH ×3 (07:29→19:09)
[2022-10-25] MEDS: Cyanocobalamin (Vitamin B12) 1,000 MCG Tab PO SCH (07:30)
[2022-10-25] MEDS: Albuterol/Ipratropium 3.0-0.5 MG/3 ML Neb Soln NEB SCH ×2 (07:30→19:08)
[2022-10-25] MEDS: Citalopram 20 MG Tab PO SCH (07:32)
[2022-10-25] MEDS: Furosemide 20 MG Tab PO SCH (07:32)
[2022-10-25] MEDS: Potassium Chloride 20 MEQ Tab.ER PO SCH ×2 (07:32→17:39)
[2022-10-25] MEDS: guaiFENesin 600 MG Tab.ER PO SCH ×2 (07:33→19:09)
[2022-10-25] MEDS: Calcium Carbonate 750 MG Tab.Chew PO SCH (07:33)
[2022-10-25] MEDS: LEVOTHYROXINE 137 MCG PO SCH (19:08)
[2022-10-25] MEDS: BUPROPION 300 MG PO SCH (19:08)
[2022-10-26] MEDS: traMADol 50 MG Tab PO SCH (07:22)
[2022-10-26] MEDS: Acetaminophen 500 MG Tab PO SCH ×3 (07:23→19:07)
[2022-10-26] MEDS: Calcium Carbonate 750 MG Tab.Chew PO SCH (07:24)
[2022-10-26] MEDS: guaiFENesin 600 MG Tab.ER PO SCH ×2 (07:24→19:07)
[2022-10-26] MEDS: Polyethylene Glycol 3350 Powder 510 GM Bot PO SCH (07:24)
[2022-10-26] MEDS: Cyanocobalamin (Vitamin B12) 1,000 MCG Tab PO SCH (07:24)
[2022-10-26] MEDS: Albuterol/Ipratropium 3.0-0.5 MG/3 ML Neb Soln NEB SCH ×2 (07:25→19:07)
[2022-10-26] MEDS: Citalopram 20 MG Tab PO SCH (07:26)
[2022-10-26] MEDS: Potassium Chloride 20 MEQ Tab.ER PO SCH ×2 (07:26→17:01)
[2022-10-26] MEDS: Furosemide 20 MG Tab PO SCH (07:26)
[2022-10-26] MEDS: BUPROPION 300 MG PO SCH (19:06)
[2022-10-26] MEDS: LEVOTHYROXINE 137 MCG PO SCH (19:06)
[2022-10-27] MEDS: Acetaminophen 500 MG Tab PO SCH ×3 (07:23→19:02)
[2022-10-27] MEDS: traMADol 50 MG Tab PO SCH (07:23)
[2022-10-27] MEDS: Calcium Carbonate 750 MG Tab.Chew PO SCH (07:24)
[2022-10-27] MEDS: Cyanocobalamin (Vitamin B12) 1,000 MCG Tab PO SCH (07:24)
[2022-10-27] MEDS: Citalopram 20 MG Tab PO SCH (07:25)
[2022-10-27] MEDS: Potassium Chloride 20 MEQ Tab.ER PO SCH ×2 (07:25→17:06)
[2022-10-27] MEDS: guaiFENesin 600 MG Tab.ER PO SCH ×2 (07:25→19:03)
[2022-10-27] MEDS: Polyethylene Glycol 3350 Powder 510 GM Bot PO SCH (07:25)
[2022-10-27] MEDS: Albuterol/Ipratropium 3.0-0.5 MG/3 ML Neb Soln NEB SCH ×2 (07:25→19:02)
[2022-10-27] MEDS: Furosemide 20 MG Tab PO SCH (07:26)
[2022-10-27] MEDS: LEVOTHYROXINE 137 MCG PO SCH (19:02)
[2022-10-27] MEDS: BUPROPION 300 MG PO SCH (19:02)
[2022-10-28] MEDS: Citalopram 20 MG Tab PO SCH (07:21)
[2022-10-28] MEDS: Potassium Chloride 20 MEQ Tab.ER PO SCH ×2 (07:22→18:20)
[2022-10-28] MEDS: Furosemide 20 MG Tab PO SCH (07:22)
[2022-10-28] MEDS: Albuterol/Ipratropium 3.0-0.5 MG/3 ML Neb Soln NEB SCH ×2 (07:23→20:15)
[2022-10-28] MEDS: Polyethylene Glycol 3350 Powder 510 GM Bot PO SCH (07:23)
[2022-10-28] MEDS: guaiFENesin 600 MG Tab.ER PO SCH ×2 (07:24→20:18)
[2022-10-28] MEDS: Calcium Carbonate 750 MG Tab.Chew PO SCH (07:24)
[2022-10-28] MEDS: Acetaminophen 500 MG Tab PO SCH ×3 (07:24→20:18)
[2022-10-28] MEDS: Cyanocobalamin (Vitamin B12) 1,000 MCG Tab PO SCH (07:25)
[2022-10-28] MEDS: traMADol 50 MG Tab PO SCH (07:26)
[2022-10-28] MEDS: LEVOTHYROXINE 137 MCG PO SCH (20:17)
[2022-10-28] MEDS: BUPROPION 300 MG PO SCH (20:18)
[2022-10-29] MEDS: Polyethylene Glycol 3350 Powder 510 GM Bot PO SCH (07:33)
[2022-10-29] MEDS: traMADol 50 MG Tab PO SCH (07:34)
[2022-10-29] MEDS: Acetaminophen 500 MG Tab PO SCH ×3 (07:34→19:14)
[2022-10-29] MEDS: Cyanocobalamin (Vitamin B12) 1,000 MCG Tab PO SCH (07:35)
[2022-10-29] MEDS: guaiFENesin 600 MG Tab.ER PO SCH ×2 (07:35→19:14)
[2022-10-29] MEDS: Citalopram 20 MG Tab PO SCH (07:35)
[2022-10-29] MEDS: Calcium Carbonate 750 MG Tab.Chew PO SCH (07:35)
[2022-10-29] MEDS: Furosemide 20 MG Tab PO SCH (07:36)
[2022-10-29] MEDS: Potassium Chloride 20 MEQ Tab.ER PO SCH ×2 (07:36→17:04)
[2022-10-29] MEDS: Albuterol/Ipratropium 3.0-0.5 MG/3 ML Neb Soln NEB SCH ×2 (07:36→19:13)
[2022-10-29] MEDS: LEVOTHYROXINE 137 MCG PO SCH (19:14)
[2022-10-29] MEDS: BUPROPION 300 MG PO SCH (19:14)
[2022-10-29] MEDS: Menthol 10%/Methyl Salicylate 15% 85 GM Tube TOP PRN (19:15)
[2022-10-30] MEDS: traMADol 50 MG Tab PO SCH (07:41)
[2022-10-30] MEDS: Polyethylene Glycol 3350 Powder 510 GM Bot PO SCH (07:41)
[2022-10-30] MEDS: Calcium Carbonate 750 MG Tab.Chew PO SCH (07:42)
[2022-10-30] MEDS: Acetaminophen 500 MG Tab PO SCH ×3 (07:42→19:08)
[2022-10-30] MEDS: guaiFENesin 600 MG Tab.ER PO SCH ×2 (07:43→19:10)
[2022-10-30] MEDS: Albuterol/Ipratropium 3.0-0.5 MG/3 ML Neb Soln NEB SCH ×2 (07:43→19:10)
[2022-10-30] MEDS: Potassium Chloride 20 MEQ Tab.ER PO SCH ×2 (07:43→17:37)
[2022-10-30] MEDS: Citalopram 20 MG Tab PO SCH (07:43)
[2022-10-30] MEDS: Cyanocobalamin (Vitamin B12) 1,000 MCG Tab PO SCH (07:43)
[2022-10-30] MEDS: Furosemide 20 MG Tab PO SCH (07:44)
[2022-10-30] MEDS: BUPROPION 300 MG PO SCH (19:08)
[2022-10-30] MEDS: LEVOTHYROXINE 137 MCG PO SCH (19:09)
[2022-10-31] MEDS: Furosemide 20 MG Tab PO SCH (07:16)
[2022-10-31] MEDS: Potassium Chloride 20 MEQ Tab.ER PO SCH ×2 (07:16→17:12)
[2022-10-31] MEDS: Citalopram 20 MG Tab PO SCH (07:16)
[2022-10-31] MEDS: Albuterol/Ipratropium 3.0-0.5 MG/3 ML Neb Soln NEB SCH ×2 (07:17→19:40)
[2022-10-31] MEDS: Calcium Carbonate 750 MG Tab.Chew PO SCH (07:17)
[2022-10-31] MEDS: Polyethylene Glycol 3350 Powder 510 GM Bot PO SCH (07:17)
[2022-10-31] MEDS: Acetaminophen 500 MG Tab PO SCH ×3 (07:17→19:42)
[2022-10-31] MEDS: guaiFENesin 600 MG Tab.ER PO SCH ×2 (07:17→19:41)
[2022-10-31] MEDS: Cyanocobalamin (Vitamin B12) 1,000 MCG Tab PO SCH (07:18)
[2022-10-31] MEDS: traMADol 50 MG Tab PO SCH (07:19)
[2022-10-31] MEDS: LEVOTHYROXINE 137 MCG PO SCH (19:41)
[2022-10-31] MEDS: BUPROPION 300 MG PO SCH (19:42)
[2022-11-01] MEDS: Albuterol/Ipratropium 3.0-0.5 MG/3 ML Neb Soln NEB SCH ×2 (07:41→19:19)
[2022-11-01] MEDS: Citalopram 20 MG Tab PO SCH (07:41)
[2022-11-01] MEDS: Furosemide 20 MG Tab PO SCH (07:42)
[2022-11-01] MEDS: Potassium Chloride 20 MEQ Tab.ER PO SCH ×2 (07:42→17:50)
[2022-11-01] MEDS: Polyethylene Glycol 3350 Powder 510 GM Bot PO SCH (07:43)
[2022-11-01] MEDS: guaiFENesin 600 MG Tab.ER PO SCH ×2 (07:43→19:20)
[2022-11-01] MEDS: Acetaminophen 500 MG Tab PO SCH ×3 (07:44→19:20)
[2022-11-01] MEDS: Calcium Carbonate 750 MG Tab.Chew PO SCH (07:44)
[2022-11-01] MEDS: traMADol 50 MG Tab PO SCH (07:46)
[2022-11-01] MEDS: Cyanocobalamin (Vitamin B12) 1,000 MCG Tab PO SCH (07:47)
[2022-11-01] MEDS: Menthol 10%/Methyl Salicylate 15% 85 GM Tube TOP PRN ×2 (09:16→19:21)
[2022-11-01] MEDS: BUPROPION 300 MG PO SCH (19:19)
[2022-11-01] MEDS: LEVOTHYROXINE 137 MCG PO SCH (19:19)
[2022-11-02] MEDS: Albuterol/Ipratropium 3.0-0.5 MG/3 ML Neb Soln NEB SCH ×2 (07:26→19:28)
[2022-11-02] MEDS: Citalopram 20 MG Tab PO SCH (07:27)
[2022-11-02] MEDS: Potassium Chloride 20 MEQ Tab.ER PO SCH ×2 (07:28→17:57)
[2022-11-02] MEDS: Furosemide 20 MG Tab PO SCH (07:29)
[2022-11-02] MEDS: Polyethylene Glycol 3350 Powder 510 GM Bot PO SCH (07:30)
[2022-11-02] MEDS: Calcium Carbonate 750 MG Tab.Chew PO SCH (07:44)
[2022-11-02] MEDS: Cyanocobalamin (Vitamin B12) 1,000 MCG Tab PO SCH (07:53)
[2022-11-02] MEDS: guaiFENesin 600 MG Tab.ER PO SCH ×2 (07:54→19:30)
[2022-11-02] MEDS: Acetaminophen 500 MG Tab PO SCH ×3 (07:55→19:31)
[2022-11-02] MEDS: traMADol 50 MG Tab PO SCH (07:57)
[2022-11-02] MEDS: BUPROPION 300 MG PO SCH (19:29)
[2022-11-02] MEDS: LEVOTHYROXINE 137 MCG PO SCH (19:29)
[2022-11-02] MEDS: Menthol 10%/Methyl Salicylate 15% 85 GM Tube TOP PRN (19:31)
[2022-11-03] MEDS: Potassium Chloride 20 MEQ Tab.ER PO SCH ×2 (07:28→17:11)
[2022-11-03] MEDS: Citalopram 20 MG Tab PO SCH (07:28)
[2022-11-03] MEDS: Polyethylene Glycol 3350 Powder 510 GM Bot PO SCH (07:29)
[2022-11-03] MEDS: Furosemide 20 MG Tab PO SCH (07:29)
[2022-11-03] MEDS: guaiFENesin 600 MG Tab.ER PO SCH ×2 (07:30→19:15)
[2022-11-03] MEDS: Calcium Carbonate 750 MG Tab.Chew PO SCH (07:30)
[2022-11-03] MEDS: Cyanocobalamin (Vitamin B12) 1,000 MCG Tab PO SCH (07:31)
[2022-11-03] MEDS: Acetaminophen 500 MG Tab PO SCH ×3 (07:31→19:15)
[2022-11-03] MEDS: Albuterol/Ipratropium 3.0-0.5 MG/3 ML Neb Soln NEB SCH ×2 (07:32→19:14)
[2022-11-03] MEDS: traMADol 50 MG Tab PO SCH (07:32)
[2022-11-03] MEDS: LEVOTHYROXINE 137 MCG PO SCH (19:14)
[2022-11-03] MEDS: BUPROPION 300 MG PO SCH (19:14)
[2022-11-03] MEDS: Menthol 10%/Methyl Salicylate 15% 85 GM Tube TOP PRN (19:16)
[2022-11-04] MEDS: Polyethylene Glycol 3350 Powder 510 GM Bot PO SCH (07:28)
[2022-11-04] MEDS: Acetaminophen 500 MG Tab PO SCH ×3 (07:32→19:20)
[2022-11-04] MEDS: traMADol 50 MG Tab PO SCH (07:32)
[2022-11-04] MEDS: Cyanocobalamin (Vitamin B12) 1,000 MCG Tab PO SCH (07:33)
[2022-11-04] MEDS: guaiFENesin 600 MG Tab.ER PO SCH ×2 (07:33→19:20)
[2022-11-04] MEDS: Albuterol/Ipratropium 3.0-0.5 MG/3 ML Neb Soln NEB SCH ×2 (07:33→19:19)
[2022-11-04] MEDS: Citalopram 20 MG Tab PO SCH (07:34)
[2022-11-04] MEDS: Furosemide 20 MG Tab PO SCH (07:34)
[2022-11-04] MEDS: Potassium Chloride 20 MEQ Tab.ER PO SCH ×2 (07:34→17:27)
[2022-11-04] MEDS: Calcium Carbonate 750 MG Tab.Chew PO SCH (07:35)
[2022-11-04] MEDS: LEVOTHYROXINE 137 MCG PO SCH (19:19)
[2022-11-04] MEDS: BUPROPION 300 MG PO SCH (19:19)
[2022-11-04] MEDS: Menthol 10%/Methyl Salicylate 15% 85 GM Tube TOP PRN (19:21)
[2022-11-05] MEDS: traMADol 50 MG Tab PO SCH (07:14)
[2022-11-05] MEDS: Acetaminophen 500 MG Tab PO SCH ×3 (07:14→19:09)
[2022-11-05] MEDS: Calcium Carbonate 750 MG Tab.Chew PO SCH (07:15)
[2022-11-05] MEDS: guaiFENesin 600 MG Tab.ER PO SCH ×2 (07:15→19:10)
[2022-11-05] MEDS: Polyethylene Glycol 3350 Powder 510 GM Bot PO SCH (07:16)
[2022-11-05] MEDS: Albuterol/Ipratropium 3.0-0.5 MG/3 ML Neb Soln NEB SCH ×2 (07:16→19:09)
[2022-11-05] MEDS: Citalopram 20 MG Tab PO SCH (07:16)
[2022-11-05] MEDS: Potassium Chloride 20 MEQ Tab.ER PO SCH ×2 (07:16→17:26)
[2022-11-05] MEDS: Cyanocobalamin (Vitamin B12) 1,000 MCG Tab PO SCH (07:17)
[2022-11-05] MEDS: Furosemide 20 MG Tab PO SCH (07:17)
[2022-11-05] MEDS: LEVOTHYROXINE 137 MCG PO SCH (19:09)
[2022-11-05] MEDS: BUPROPION 300 MG PO SCH (19:09)
[2022-11-06] MEDS: Acetaminophen 500 MG Tab PO SCH ×3 (07:31→19:12)
[2022-11-06] MEDS: traMADol 50 MG Tab PO SCH (07:31)
[2022-11-06] MEDS: Polyethylene Glycol 3350 Powder 510 GM Bot PO SCH (07:32)
[2022-11-06] MEDS: guaiFENesin 600 MG Tab.ER PO SCH ×2 (07:32→19:12)
[2022-11-06] MEDS: Cyanocobalamin (Vitamin B12) 1,000 MCG Tab PO SCH (07:33)
[2022-11-06] MEDS: Calcium Carbonate 750 MG Tab.Chew PO SCH (07:33)
[2022-11-06] MEDS: Albuterol/Ipratropium 3.0-0.5 MG/3 ML Neb Soln NEB SCH ×2 (07:33→19:11)
[2022-11-06] MEDS: Citalopram 20 MG Tab PO SCH (07:33)
[2022-11-06] MEDS: Furosemide 20 MG Tab PO SCH (07:34)
[2022-11-06] MEDS: Potassium Chloride 20 MEQ Tab.ER PO SCH ×2 (07:34→17:21)
[2022-11-06] MEDS: Menthol 10%/Methyl Salicylate 15% 85 GM Tube TOP PRN (10:35)
[2022-11-06] MEDS: BUPROPION 300 MG PO SCH (19:12)
[2022-11-06] MEDS: LEVOTHYROXINE 137 MCG PO SCH (19:12)
[2022-11-07] MEDS: Citalopram 20 MG Tab PO SCH (07:03)
[2022-11-07] MEDS: Furosemide 20 MG Tab PO SCH (07:03)
[2022-11-07] MEDS: Potassium Chloride 20 MEQ Tab.ER PO SCH ×2 (07:03→17:44)
[2022-11-07] MEDS: Polyethylene Glycol 3350 Powder 510 GM Bot PO SCH (07:05)
[2022-11-07] MEDS: guaiFENesin 600 MG Tab.ER PO SCH ×2 (07:06→19:13)
[2022-11-07] MEDS: Calcium Carbonate 750 MG Tab.Chew PO SCH (07:06)
[2022-11-07] MEDS: Acetaminophen 500 MG Tab PO SCH ×3 (07:07→19:14)
[2022-11-07] MEDS: traMADol 50 MG Tab PO SCH (07:09)
[2022-11-07] MEDS: Cyanocobalamin (Vitamin B12) 1,000 MCG Tab PO SCH (07:10)
[2022-11-07] MEDS: Albuterol/Ipratropium 3.0-0.5 MG/3 ML Neb Soln NEB SCH ×2 (07:11→19:12)
[2022-11-07] MEDS: LEVOTHYROXINE 137 MCG PO SCH (19:13)
[2022-11-07] MEDS: BUPROPION 300 MG PO SCH (19:13)
[2022-11-07] MEDS: Menthol 10%/Methyl Salicylate 15% 85 GM Tube TOP PRN (19:15)
[2022-11-08] MEDS: Citalopram 20 MG Tab PO SCH (07:27)
[2022-11-08] MEDS: Potassium Chloride 20 MEQ Tab.ER PO SCH ×2 (07:28→18:09)
[2022-11-08] MEDS: Furosemide 20 MG Tab PO SCH (07:28)
[2022-11-08] MEDS: Polyethylene Glycol 3350 Powder 510 GM Bot PO SCH (07:29)
[2022-11-08] MEDS: Albuterol/Ipratropium 3.0-0.5 MG/3 ML Neb Soln NEB SCH ×2 (07:29→19:24)
[2022-11-08] MEDS: Calcium Carbonate 750 MG Tab.Chew PO SCH (07:31)
[2022-11-08] MEDS: guaiFENesin 600 MG Tab.ER PO SCH ×2 (07:31→19:26)
[2022-11-08] MEDS: Acetaminophen 500 MG Tab PO SCH ×3 (07:32→19:26)
[2022-11-08] MEDS: traMADol 50 MG Tab PO SCH (07:33)
[2022-11-08] MEDS: Cyanocobalamin (Vitamin B12) 1,000 MCG Tab PO SCH (07:33)
[2022-11-08] MEDS: Menthol 10%/Methyl Salicylate 15% 85 GM Tube TOP PRN ×2 (08:58→19:27)
[2022-11-08] MEDS: LEVOTHYROXINE 137 MCG PO SCH (19:26)
[2022-11-08] MEDS: BUPROPION 300 MG PO SCH (19:26)
[2022-11-09] MEDS: Furosemide 20 MG Tab PO SCH (07:00)
[2022-11-09] MEDS: Potassium Chloride 20 MEQ Tab.ER PO SCH ×2 (07:00→17:53)
[2022-11-09] MEDS: Albuterol/Ipratropium 3.0-0.5 MG/3 ML Neb Soln NEB SCH ×2 (07:00→19:31)
[2022-11-09] MEDS: Citalopram 20 MG Tab PO SCH (07:00)
[2022-11-09] MEDS: Calcium Carbonate 750 MG Tab.Chew PO SCH (07:01)
[2022-11-09] MEDS: Polyethylene Glycol 3350 Powder 510 GM Bot PO SCH ×2 (07:01→07:44)
[2022-11-09] MEDS: guaiFENesin 600 MG Tab.ER PO SCH ×2 (07:01→19:32)
[2022-11-09] MEDS: Acetaminophen 500 MG Tab PO SCH ×3 (07:03→19:32)
[2022-11-09] MEDS: Cyanocobalamin (Vitamin B12) 1,000 MCG Tab PO SCH (07:04)
[2022-11-09] MEDS: traMADol 50 MG Tab PO SCH (07:05)
[2022-11-09] MEDS: Menthol 10%/Methyl Salicylate 15% 85 GM Tube TOP PRN (07:06)
[2022-11-09] MEDS: LEVOTHYROXINE 137 MCG PO SCH (19:31)
[2022-11-09] MEDS: BUPROPION 300 MG PO SCH (19:32)
[2022-11-10] MEDS: Potassium Chloride 20 MEQ Tab.ER PO SCH ×2 (08:37→17:43)
[2022-11-10] MEDS: Furosemide 20 MG Tab PO SCH (08:37)
[2022-11-10] MEDS: Citalopram 20 MG Tab PO SCH (08:37)
[2022-11-10] MEDS: Albuterol/Ipratropium 3.0-0.5 MG/3 ML Neb Soln NEB SCH ×2 (08:38→19:13)
[2022-11-10] MEDS: Polyethylene Glycol 3350 Powder 510 GM Bot PO SCH (08:40)
[2022-11-10] MEDS: traMADol 50 MG Tab PO SCH (08:41)
[2022-11-10] MEDS: Calcium Carbonate 750 MG Tab.Chew PO SCH (08:43)
[2022-11-10] MEDS: Acetaminophen 500 MG Tab PO SCH ×3 (08:44→19:15)
[2022-11-10] MEDS: guaiFENesin 600 MG Tab.ER PO SCH ×2 (08:45→19:14)
[2022-11-10] MEDS: Cyanocobalamin (Vitamin B12) 1,000 MCG Tab PO SCH (08:45)
[2022-11-10] MEDS: Menthol 10%/Methyl Salicylate 15% 85 GM Tube TOP PRN ×2 (11:00→19:14)
[2022-11-10] MEDS: traMADol 50 MG Tab PO PRN (17:47)
[2022-11-10] MEDS: BUPROPION 300 MG PO SCH (19:14)
[2022-11-10] MEDS: LEVOTHYROXINE 137 MCG PO SCH (19:14)
[2022-11-11] MEDS: Acetaminophen 500 MG Tab PO SCH ×3 (07:39→19:05)
[2022-11-11] MEDS: traMADol 50 MG Tab PO SCH (07:39)
[2022-11-11] MEDS: Calcium Carbonate 750 MG Tab.Chew PO SCH (07:40)
[2022-11-11] MEDS: guaiFENesin 600 MG Tab.ER PO SCH ×2 (07:40→19:05)
[2022-11-11] MEDS: Polyethylene Glycol 3350 Powder 510 GM Bot PO SCH (07:41)
[2022-11-11] MEDS: Cyanocobalamin (Vitamin B12) 1,000 MCG Tab PO SCH (07:41)
[2022-11-11] MEDS: Citalopram 20 MG Tab PO SCH (07:42)
[2022-11-11] MEDS: Potassium Chloride 20 MEQ Tab.ER PO SCH ×2 (07:42→17:16)
[2022-11-11] MEDS: Furosemide 20 MG Tab PO SCH (07:42)
[2022-11-11] MEDS: Albuterol/Ipratropium 3.0-0.5 MG/3 ML Neb Soln NEB SCH ×2 (07:42→19:04)
[2022-11-11] MEDS: LEVOTHYROXINE 137 MCG PO SCH (19:04)
[2022-11-11] MEDS: BUPROPION 300 MG PO SCH (19:04)
[2022-11-11] MEDS: Menthol 10%/Methyl Salicylate 15% 85 GM Tube TOP PRN (19:06)
[2022-11-12] MEDS: Polyethylene Glycol 3350 Powder 510 GM Bot PO SCH (07:20)
[2022-11-12] MEDS: traMADol 50 MG Tab PO SCH (07:20)
[2022-11-12] MEDS: Albuterol/Ipratropium 3.0-0.5 MG/3 ML Neb Soln NEB SCH ×2 (07:20→19:32)
[2022-11-12] MEDS: Citalopram 20 MG Tab PO SCH (07:22)
[2022-11-12] MEDS: Potassium Chloride 20 MEQ Tab.ER PO SCH ×2 (07:22→18:09)
[2022-11-12] MEDS: guaiFENesin 600 MG Tab.ER PO SCH ×2 (07:22→19:33)
[2022-11-12] MEDS: Furosemide 20 MG Tab PO SCH (07:23)
[2022-11-12] MEDS: Calcium Carbonate 750 MG Tab.Chew PO SCH (07:23)
[2022-11-12] MEDS: Acetaminophen 500 MG Tab PO SCH ×3 (07:23→19:33)
[2022-11-12] MEDS: Cyanocobalamin (Vitamin B12) 1,000 MCG Tab PO SCH (07:24)
[2022-11-12] MEDS: BUPROPION 300 MG PO SCH (19:32)
[2022-11-12] MEDS: LEVOTHYROXINE 137 MCG PO SCH (19:32)
[2022-11-12] MEDS: Menthol 10%/Methyl Salicylate 15% 85 GM Tube TOP PRN (19:34)
[2022-11-13] MEDS: Calcium Carbonate 750 MG Tab.Chew PO SCH (07:11)
[2022-11-13] MEDS: Albuterol/Ipratropium 3.0-0.5 MG/3 ML Neb Soln NEB SCH ×2 (07:12→20:01)
[2022-11-13] MEDS: Potassium Chloride 20 MEQ Tab.ER PO SCH ×2 (07:12→17:26)
[2022-11-13] MEDS: Citalopram 20 MG Tab PO SCH (07:12)
[2022-11-13] MEDS: Furosemide 20 MG Tab PO SCH (07:12)
[2022-11-13] MEDS: Polyethylene Glycol 3350 Powder 510 GM Bot PO SCH (07:13)
[2022-11-13] MEDS: guaiFENesin 600 MG Tab.ER PO SCH ×2 (07:13→20:02)
[2022-11-13] MEDS: Acetaminophen 500 MG Tab PO SCH ×3 (07:13→20:03)
[2022-11-13] MEDS: Cyanocobalamin (Vitamin B12) 1,000 MCG Tab PO SCH (07:14)
[2022-11-13] MEDS: traMADol 50 MG Tab PO SCH (07:15)
[2022-11-13] MEDS: LEVOTHYROXINE 137 MCG PO SCH (20:01)
[2022-11-13] MEDS: BUPROPION 300 MG PO SCH (20:02)
[2022-11-14] MEDS: Polyethylene Glycol 3350 Powder 510 GM Bot PO SCH (07:37)
[2022-11-14] MEDS: guaiFENesin 600 MG Tab.ER PO SCH ×2 (07:38→19:44)
[2022-11-14] MEDS: Cyanocobalamin (Vitamin B12) 1,000 MCG Tab PO SCH (07:38)
[2022-11-14] MEDS: Calcium Carbonate 750 MG Tab.Chew PO SCH (07:38)
[2022-11-14] MEDS: Furosemide 20 MG Tab PO SCH (07:39)
[2022-11-14] MEDS: Citalopram 20 MG Tab PO SCH (07:39)
[2022-11-14] MEDS: Potassium Chloride 20 MEQ Tab.ER PO SCH ×2 (07:39→17:33)
[2022-11-14] MEDS: Albuterol/Ipratropium 3.0-0.5 MG/3 ML Neb Soln NEB SCH ×2 (07:39→19:43)
[2022-11-14] MEDS: Acetaminophen 500 MG Tab PO SCH ×3 (07:40→19:44)
[2022-11-14] MEDS: traMADol 50 MG Tab PO SCH (07:40)
[2022-11-14] MEDS: BUPROPION 300 MG PO SCH (19:43)
[2022-11-14] MEDS: LEVOTHYROXINE 137 MCG PO SCH (19:43)
[2022-11-15] MEDS: Albuterol/Ipratropium 3.0-0.5 MG/3 ML Neb Soln NEB SCH ×2 (07:14→19:41)
[2022-11-15] MEDS: traMADol 50 MG Tab PO SCH (07:14)
[2022-11-15] MEDS: Calcium Carbonate 750 MG Tab.Chew PO SCH (07:15)
[2022-11-15] MEDS: Acetaminophen 500 MG Tab PO SCH ×3 (07:15→19:44)
[2022-11-15] MEDS: Polyethylene Glycol 3350 Powder 510 GM Bot PO SCH (07:16)
[2022-11-15] MEDS: guaiFENesin 600 MG Tab.ER PO SCH ×2 (07:16→19:44)
[2022-11-15] MEDS: Citalopram 20 MG Tab PO SCH (07:17)
[2022-11-15] MEDS: Potassium Chloride 20 MEQ Tab.ER PO SCH ×2 (07:17→17:13)
[2022-11-15] MEDS: Furosemide 20 MG Tab PO SCH (07:18)
[2022-11-15] MEDS: Cyanocobalamin (Vitamin B12) 1,000 MCG Tab PO SCH (07:18)
[2022-11-15] MEDS: BUPROPION 300 MG PO SCH (19:41)
[2022-11-15] MEDS: LEVOTHYROXINE 137 MCG PO SCH (19:41)
[2022-11-16] MEDS: Citalopram 20 MG Tab PO SCH (07:44)
[2022-11-16] MEDS: Potassium Chloride 20 MEQ Tab.ER PO SCH ×2 (07:44→17:12)
[2022-11-16] MEDS: Furosemide 20 MG Tab PO SCH (07:44)
[2022-11-16] MEDS: Polyethylene Glycol 3350 Powder 510 GM Bot PO SCH (07:45)
[2022-11-16] MEDS: Albuterol/Ipratropium 3.0-0.5 MG/3 ML Neb Soln NEB SCH ×2 (07:45→19:16)
[2022-11-16] MEDS: Acetaminophen 500 MG Tab PO SCH ×3 (07:46→19:17)
[2022-11-16] MEDS: guaiFENesin 600 MG Tab.ER PO SCH ×2 (07:46→19:16)
[2022-11-16] MEDS: Calcium Carbonate 750 MG Tab.Chew PO SCH (07:46)
[2022-11-16] MEDS: Cyanocobalamin (Vitamin B12) 1,000 MCG Tab PO SCH (07:47)
[2022-11-16] MEDS: traMADol 50 MG Tab PO SCH (07:48)
[2022-11-16] MEDS: LEVOTHYROXINE 137 MCG PO SCH (19:16)
[2022-11-16] MEDS: BUPROPION 300 MG PO SCH (19:16)
[2022-11-17] MEDS: Furosemide 20 MG Tab PO SCH (07:27)
[2022-11-17] MEDS: Albuterol/Ipratropium 3.0-0.5 MG/3 ML Neb Soln NEB SCH ×2 (07:27→19:11)
[2022-11-17] MEDS: Citalopram 20 MG Tab PO SCH (07:27)
[2022-11-17] MEDS: Potassium Chloride 20 MEQ Tab.ER PO SCH ×2 (07:27→17:42)
[2022-11-17] MEDS: Calcium Carbonate 750 MG Tab.Chew PO SCH (07:28)
[2022-11-17] MEDS: guaiFENesin 600 MG Tab.ER PO SCH ×2 (07:28→19:11)
[2022-11-17] MEDS: Polyethylene Glycol 3350 Powder 510 GM Bot PO SCH (07:28)
[2022-11-17] MEDS: traMADol 50 MG Tab PO SCH (07:29)
[2022-11-17] MEDS: Acetaminophen 500 MG Tab PO SCH ×3 (07:29→19:10)
[2022-11-17] MEDS: Cyanocobalamin (Vitamin B12) 1,000 MCG Tab PO SCH (07:29)
[2022-11-17] MEDS: LEVOTHYROXINE 137 MCG PO SCH (19:10)
[2022-11-17] MEDS: BUPROPION 300 MG PO SCH (19:10)
[2022-11-18] MEDS: Polyethylene Glycol 3350 Powder 510 GM Bot PO SCH (07:13)
[2022-11-18] MEDS: Acetaminophen 500 MG Tab PO SCH ×3 (07:14→19:31)
[2022-11-18] MEDS: traMADol 50 MG Tab PO SCH (07:14)
[2022-11-18] MEDS: Calcium Carbonate 750 MG Tab.Chew PO SCH (07:15)
[2022-11-18] MEDS: Potassium Chloride 20 MEQ Tab.ER PO SCH ×2 (07:16→17:19)
[2022-11-18] MEDS: Albuterol/Ipratropium 3.0-0.5 MG/3 ML Neb Soln NEB SCH ×2 (07:16→19:30)
[2022-11-18] MEDS: Citalopram 20 MG Tab PO SCH (07:16)
[2022-11-18] MEDS: Cyanocobalamin (Vitamin B12) 1,000 MCG Tab PO SCH (07:16)
[2022-11-18] MEDS: guaiFENesin 600 MG Tab.ER PO SCH ×2 (07:17→19:31)
[2022-11-18] MEDS: Furosemide 20 MG Tab PO SCH (07:17)
[2022-11-18] MEDS: LEVOTHYROXINE 137 MCG PO SCH (19:30)
[2022-11-18] MEDS: BUPROPION 300 MG PO SCH (19:31)
[2022-11-19] MEDS: Potassium Chloride 20 MEQ Tab.ER PO SCH ×2 (07:25→17:04)
[2022-11-19] MEDS: Citalopram 20 MG Tab PO SCH (07:25)
[2022-11-19] MEDS: Furosemide 20 MG Tab PO SCH (07:26)
[2022-11-19] MEDS: Albuterol/Ipratropium 3.0-0.5 MG/3 ML Neb Soln NEB SCH ×2 (07:27→19:52)
[2022-11-19] MEDS: Polyethylene Glycol 3350 Powder 510 GM Bot PO SCH (07:28)
[2022-11-19] MEDS: guaiFENesin 600 MG Tab.ER PO SCH ×2 (07:28→19:53)
[2022-11-19] MEDS: Acetaminophen 500 MG Tab PO SCH ×3 (07:29→19:53)
[2022-11-19] MEDS: Calcium Carbonate 750 MG Tab.Chew PO SCH (07:29)
[2022-11-19] MEDS: Cyanocobalamin (Vitamin B12) 1,000 MCG Tab PO SCH (07:31)
[2022-11-19] MEDS: traMADol 50 MG Tab PO SCH (07:32)
[2022-11-19] MEDS: LEVOTHYROXINE 137 MCG PO SCH (19:52)
[2022-11-19] MEDS: BUPROPION 300 MG PO SCH (19:53)
[2022-11-20] MEDS: traMADol 50 MG Tab PO SCH (07:41)
[2022-11-20] MEDS: Acetaminophen 500 MG Tab PO SCH ×3 (07:42→19:12)
[2022-11-20] MEDS: Calcium Carbonate 750 MG Tab.Chew PO SCH (07:42)
[2022-11-20] MEDS: Citalopram 20 MG Tab PO SCH (07:43)
[2022-11-20] MEDS: Potassium Chloride 20 MEQ Tab.ER PO SCH ×2 (07:43→17:20)
[2022-11-20] MEDS: Cyanocobalamin (Vitamin B12) 1,000 MCG Tab PO SCH (07:43)
[2022-11-20] MEDS: Polyethylene Glycol 3350 Powder 510 GM Bot PO SCH (07:43)
[2022-11-20] MEDS: Furosemide 20 MG Tab PO SCH (07:43)
[2022-11-20] MEDS: Albuterol/Ipratropium 3.0-0.5 MG/3 ML Neb Soln NEB SCH ×2 (07:43→19:11)
[2022-11-20] MEDS: guaiFENesin 600 MG Tab.ER PO SCH ×2 (07:44→19:12)
[2022-11-20] MEDS: BUPROPION 300 MG PO SCH (19:11)
[2022-11-20] MEDS: LEVOTHYROXINE 137 MCG PO SCH (19:11)
[2022-11-20] MEDS: Menthol 10%/Methyl Salicylate 15% 85 GM Tube TOP PRN (19:15)
[2022-11-21] MEDS: Potassium Chloride 20 MEQ Tab.ER PO SCH ×2 (07:21→17:32)
[2022-11-21] MEDS: Citalopram 20 MG Tab PO SCH (07:21)
[2022-11-21] MEDS: Furosemide 20 MG Tab PO SCH (07:22)
[2022-11-21] MEDS: Polyethylene Glycol 3350 Powder 510 GM Bot PO SCH (07:22)
[2022-11-21] MEDS: Calcium Carbonate 750 MG Tab.Chew PO SCH (07:23)
[2022-11-21] MEDS: guaiFENesin 600 MG Tab.ER PO SCH ×2 (07:23→19:39)
[2022-11-21] MEDS: Acetaminophen 500 MG Tab PO SCH ×3 (07:24→19:39)
[2022-11-21] MEDS: Cyanocobalamin (Vitamin B12) 1,000 MCG Tab PO SCH (07:27)
[2022-11-21] MEDS: traMADol 50 MG Tab PO SCH (07:32)
[2022-11-21] MEDS: Albuterol/Ipratropium 3.0-0.5 MG/3 ML Neb Soln NEB PRN (09:09)
[2022-11-21] MEDS: Albuterol/Ipratropium 3.0-0.5 MG/3 ML Neb Soln NEB SCH ×2 (09:09→19:40)
[2022-11-21] MEDS: LEVOTHYROXINE 137 MCG PO SCH (19:39)
[2022-11-21] MEDS: BUPROPION 300 MG PO SCH (19:39)
[2022-11-22] MEDS: Citalopram 20 MG Tab PO SCH (07:10)
[2022-11-22] MEDS: Potassium Chloride 20 MEQ Tab.ER PO SCH ×2 (07:11→17:19)
[2022-11-22] MEDS: Furosemide 20 MG Tab PO SCH (07:11)
[2022-11-22] MEDS: guaiFENesin 600 MG Tab.ER PO SCH ×2 (07:12→19:32)
[2022-11-22] MEDS: Polyethylene Glycol 3350 Powder 510 GM Bot PO SCH (07:12)
[2022-11-22] MEDS: Acetaminophen 500 MG Tab PO SCH ×3 (07:13→19:33)
[2022-11-22] MEDS: Calcium Carbonate 750 MG Tab.Chew PO SCH (07:13)
[2022-11-22] MEDS: traMADol 50 MG Tab PO SCH (07:20)
[2022-11-22] MEDS: Cyanocobalamin (Vitamin B12) 1,000 MCG Tab PO SCH (07:21)
[2022-11-22] MEDS: Albuterol/Ipratropium 3.0-0.5 MG/3 ML Neb Soln NEB SCH ×2 (07:34→19:31)
[2022-11-22] MEDS: BUPROPION 300 MG PO SCH (19:32)
[2022-11-22] MEDS: LEVOTHYROXINE 137 MCG PO SCH (19:32)
[2022-11-22] MEDS: Menthol 10%/Methyl Salicylate 15% 85 GM Tube TOP PRN (19:33)
[2022-11-23] MEDS: Furosemide 20 MG Tab PO SCH (07:39)
[2022-11-23] MEDS: Potassium Chloride 20 MEQ Tab.ER PO SCH ×2 (07:39→17:43)
[2022-11-23] MEDS: Citalopram 20 MG Tab PO SCH (07:39)
[2022-11-23] MEDS: Albuterol/Ipratropium 3.0-0.5 MG/3 ML Neb Soln NEB SCH ×2 (07:40→19:22)
[2022-11-23] MEDS: Polyethylene Glycol 3350 Powder 510 GM Bot PO SCH (07:40)
[2022-11-23] MEDS: guaiFENesin 600 MG Tab.ER PO SCH ×2 (07:41→19:23)
[2022-11-23] MEDS: Acetaminophen 500 MG Tab PO SCH ×3 (07:41→19:24)
[2022-11-23] MEDS: Calcium Carbonate 750 MG Tab.Chew PO SCH (07:41)
[2022-11-23] MEDS: Cyanocobalamin (Vitamin B12) 1,000 MCG Tab PO SCH (07:42)
[2022-11-23] MEDS: traMADol 50 MG Tab PO SCH (07:42)
[2022-11-23] MEDS: BUPROPION 300 MG PO SCH (19:23)
[2022-11-23] MEDS: LEVOTHYROXINE 137 MCG PO SCH (19:23)
[2022-11-23] MEDS: Menthol 10%/Methyl Salicylate 15% 85 GM Tube TOP PRN (19:24)
[2022-11-24] MEDS: Citalopram 20 MG Tab PO SCH (07:32)
[2022-11-24] MEDS: Potassium Chloride 20 MEQ Tab.ER PO SCH ×2 (07:32→17:51)
[2022-11-24] MEDS: Polyethylene Glycol 3350 Powder 510 GM Bot PO SCH (07:33)
[2022-11-24] MEDS: Furosemide 20 MG Tab PO SCH (07:33)
[2022-11-24] MEDS: Albuterol/Ipratropium 3.0-0.5 MG/3 ML Neb Soln NEB SCH ×2 (07:34→19:21)
[2022-11-24] MEDS: Acetaminophen 500 MG Tab PO SCH ×3 (07:35→19:22)
[2022-11-24] MEDS: guaiFENesin 600 MG Tab.ER PO SCH ×2 (07:35→19:21)
[2022-11-24] MEDS: Calcium Carbonate 750 MG Tab.Chew PO SCH (07:36)
[2022-11-24] MEDS: traMADol 50 MG Tab PO SCH (07:37)
[2022-11-24] MEDS: Cyanocobalamin (Vitamin B12) 1,000 MCG Tab PO SCH (07:38)
[2022-11-24] MEDS: BUPROPION 300 MG PO SCH (19:21)
[2022-11-24] MEDS: LEVOTHYROXINE 137 MCG PO SCH (19:21)
[2022-11-24] MEDS: Menthol 10%/Methyl Salicylate 15% 85 GM Tube TOP PRN (19:22)
[2022-11-25] MEDS: Albuterol/Ipratropium 3.0-0.5 MG/3 ML Neb Soln NEB SCH ×2 (07:06→19:11)
[2022-11-25] MEDS: Citalopram 20 MG Tab PO SCH (07:06)
[2022-11-25] MEDS: Potassium Chloride 20 MEQ Tab.ER PO SCH ×2 (07:07→17:13)
[2022-11-25] MEDS: Furosemide 20 MG Tab PO SCH (07:07)
[2022-11-25] MEDS: Polyethylene Glycol 3350 Powder 510 GM Bot PO SCH (07:07)
[2022-11-25] MEDS: Acetaminophen 500 MG Tab PO SCH ×3 (07:08→19:12)
[2022-11-25] MEDS: Calcium Carbonate 750 MG Tab.Chew PO SCH (07:08)
[2022-11-25] MEDS: guaiFENesin 600 MG Tab.ER PO SCH ×2 (07:08→19:12)
[2022-11-25] MEDS: Cyanocobalamin (Vitamin B12) 1,000 MCG Tab PO SCH (07:09)
[2022-11-25] MEDS: traMADol 50 MG Tab PO SCH (07:11)
[2022-11-25] MEDS: BUPROPION 300 MG PO SCH (19:11)
[2022-11-25] MEDS: LEVOTHYROXINE 137 MCG PO SCH (19:11)
[2022-11-26] MEDS: Albuterol/Ipratropium 3.0-0.5 MG/3 ML Neb Soln NEB SCH ×2 (07:07→19:24)
[2022-11-26] MEDS: Potassium Chloride 20 MEQ Tab.ER PO SCH ×2 (07:07→17:31)
[2022-11-26] MEDS: Citalopram 20 MG Tab PO SCH (07:07)
[2022-11-26] MEDS: Polyethylene Glycol 3350 Powder 510 GM Bot PO SCH (07:08)
[2022-11-26] MEDS: Furosemide 20 MG Tab PO SCH (07:08)
[2022-11-26] MEDS: Calcium Carbonate 750 MG Tab.Chew PO SCH (07:09)
[2022-11-26] MEDS: Acetaminophen 500 MG Tab PO SCH ×3 (07:09→19:25)
[2022-11-26] MEDS: guaiFENesin 600 MG Tab.ER PO SCH ×2 (07:09→19:24)
[2022-11-26] MEDS: Cyanocobalamin (Vitamin B12) 1,000 MCG Tab PO SCH (07:10)
[2022-11-26] MEDS: traMADol 50 MG Tab PO SCH (07:13)
[2022-11-26] MEDS: LEVOTHYROXINE 137 MCG PO SCH (19:24)
[2022-11-26] MEDS: BUPROPION 300 MG PO SCH (19:24)
[2022-11-26] MEDS: Menthol 10%/Methyl Salicylate 15% 85 GM Tube TOP PRN (23:35)
[2022-11-27] MEDS: Polyethylene Glycol 3350 Powder 510 GM Bot PO SCH (07:39)
[2022-11-27] MEDS: traMADol 50 MG Tab PO SCH (07:40)
[2022-11-27] MEDS: Acetaminophen 500 MG Tab PO SCH ×3 (07:40→19:20)
[2022-11-27] MEDS: Cyanocobalamin (Vitamin B12) 1,000 MCG Tab PO SCH (07:41)
[2022-11-27] MEDS: Albuterol/Ipratropium 3.0-0.5 MG/3 ML Neb Soln NEB SCH ×2 (07:44→19:18)
[2022-11-27] MEDS: Potassium Chloride 20 MEQ Tab.ER PO SCH ×2 (07:44→17:41)
[2022-11-27] MEDS: Furosemide 20 MG Tab PO SCH (07:44)
[2022-11-27] MEDS: Citalopram 20 MG Tab PO SCH (07:44)
[2022-11-27] MEDS: guaiFENesin 600 MG Tab.ER PO SCH ×2 (07:45→19:20)
[2022-11-27] MEDS: Calcium Carbonate 750 MG Tab.Chew PO SCH (07:45)
[2022-11-27] MEDS: LEVOTHYROXINE 137 MCG PO SCH (19:19)
[2022-11-27] MEDS: BUPROPION 300 MG PO SCH (19:19)
[2022-11-27] MEDS: Menthol 10%/Methyl Salicylate 15% 85 GM Tube TOP PRN (19:21)
[2022-11-28] MEDS: Polyethylene Glycol 3350 Powder 510 GM Bot PO SCH (07:37)
[2022-11-28] MEDS: traMADol 50 MG Tab PO SCH (07:38)
[2022-11-28] MEDS: Acetaminophen 500 MG Tab PO SCH ×3 (07:38→19:55)
[2022-11-28] MEDS: Furosemide 20 MG Tab PO SCH (07:39)
[2022-11-28] MEDS: Albuterol/Ipratropium 3.0-0.5 MG/3 ML Neb Soln NEB SCH ×2 (07:39→19:54)
[2022-11-28] MEDS: Potassium Chloride 20 MEQ Tab.ER PO SCH ×2 (07:39→17:21)
[2022-11-28] MEDS: Citalopram 20 MG Tab PO SCH (07:39)
[2022-11-28] MEDS: guaiFENesin 600 MG Tab.ER PO SCH ×2 (07:40→19:55)
[2022-11-28] MEDS: Calcium Carbonate 750 MG Tab.Chew PO SCH (07:40)
[2022-11-28] MEDS: Cyanocobalamin (Vitamin B12) 1,000 MCG Tab PO SCH (07:40)
[2022-11-28] MEDS: LEVOTHYROXINE 137 MCG PO SCH (19:54)
[2022-11-28] MEDS: BUPROPION 300 MG PO SCH (19:54)
[2022-11-28] MEDS: Menthol 10%/Methyl Salicylate 15% 85 GM Tube TOP PRN (19:56)
[2022-11-29] MEDS: Furosemide 20 MG Tab PO SCH (09:14)
[2022-11-29] MEDS: Citalopram 20 MG Tab PO SCH (09:15)
[2022-11-29] MEDS: Potassium Chloride 20 MEQ Tab.ER PO SCH ×2 (09:15→18:55)
[2022-11-29] MEDS: Albuterol/Ipratropium 3.0-0.5 MG/3 ML Neb Soln NEB SCH ×2 (09:16→19:49)
[2022-11-29] MEDS: Polyethylene Glycol 3350 Powder 510 GM Bot PO SCH (09:17)
[2022-11-29] MEDS: traMADol 50 MG Tab PO SCH (09:18)
[2022-11-29] MEDS: Calcium Carbonate 750 MG Tab.Chew PO SCH (09:19)
[2022-11-29] MEDS: guaiFENesin 600 MG Tab.ER PO SCH ×2 (09:20→19:50)
[2022-11-29] MEDS: Acetaminophen 500 MG Tab PO SCH ×3 (09:20→19:51)
[2022-11-29] MEDS: Menthol 10%/Methyl Salicylate 15% 85 GM Tube TOP PRN (09:21)
[2022-11-29] MEDS: Cyanocobalamin (Vitamin B12) 1,000 MCG Tab PO SCH (09:21)
[2022-11-29] MEDS: LEVOTHYROXINE 137 MCG PO SCH (19:49)
[2022-11-29] MEDS: BUPROPION 300 MG PO SCH (19:50)
[2022-11-30] MEDS: Citalopram 20 MG Tab PO SCH (07:28)
[2022-11-30] MEDS: Potassium Chloride 20 MEQ Tab.ER PO SCH ×2 (07:28→18:04)
[2022-11-30] MEDS: Furosemide 20 MG Tab PO SCH (07:28)
[2022-11-30] MEDS: guaiFENesin 600 MG Tab.ER PO SCH ×2 (07:29→19:34)
[2022-11-30] MEDS: Albuterol/Ipratropium 3.0-0.5 MG/3 ML Neb Soln NEB SCH ×2 (07:29→19:33)
[2022-11-30] MEDS: Polyethylene Glycol 3350 Powder 510 GM Bot PO SCH (07:29)
[2022-11-30] MEDS: Calcium Carbonate 750 MG Tab.Chew PO SCH (07:29)
[2022-11-30] MEDS: Acetaminophen 500 MG Tab PO SCH ×3 (07:30→19:34)
[2022-11-30] MEDS: Cyanocobalamin (Vitamin B12) 1,000 MCG Tab PO SCH (07:31)
[2022-11-30] MEDS: traMADol 50 MG Tab PO SCH (07:33)
[2022-11-30] MEDS: LEVOTHYROXINE 137 MCG PO SCH (19:33)
[2022-11-30] MEDS: BUPROPION 300 MG PO SCH (19:34)
[2022-12-01] MEDS: Potassium Chloride 20 MEQ Tab.ER PO SCH ×2 (07:06→17:59)
[2022-12-01] MEDS: Citalopram 20 MG Tab PO SCH (07:06)
[2022-12-01] MEDS: Albuterol/Ipratropium 3.0-0.5 MG/3 ML Neb Soln NEB SCH ×2 (07:06→19:30)
[2022-12-01] MEDS: Furosemide 20 MG Tab PO SCH (07:06)
[2022-12-01] MEDS: Polyethylene Glycol 3350 Powder 510 GM Bot PO SCH (07:07)
[2022-12-01] MEDS: guaiFENesin 600 MG Tab.ER PO SCH ×2 (07:07→19:31)
[2022-12-01] MEDS: Calcium Carbonate 750 MG Tab.Chew PO SCH (07:08)
[2022-12-01] MEDS: Acetaminophen 500 MG Tab PO SCH ×3 (07:08→19:31)
[2022-12-01] MEDS: traMADol 50 MG Tab PO SCH (07:09)
[2022-12-01] MEDS: Cyanocobalamin (Vitamin B12) 1,000 MCG Tab PO SCH (07:10)
[2022-12-01] MEDS: LEVOTHYROXINE 137 MCG PO SCH (19:30)
[2022-12-01] MEDS: BUPROPION 300 MG PO SCH (19:31)
[2022-12-02] MEDS: Furosemide 20 MG Tab PO SCH (07:49)
[2022-12-02] MEDS: Potassium Chloride 20 MEQ Tab.ER PO SCH ×2 (07:49→17:38)
[2022-12-02] MEDS: Citalopram 20 MG Tab PO SCH (07:50)
[2022-12-02] MEDS: Albuterol/Ipratropium 3.0-0.5 MG/3 ML Neb Soln NEB SCH ×2 (07:50→19:13)
[2022-12-02] MEDS: Polyethylene Glycol 3350 Powder 510 GM Bot PO SCH (07:51)
[2022-12-02] MEDS: guaiFENesin 600 MG Tab.ER PO SCH ×2 (07:53→19:14)
[2022-12-02] MEDS: Acetaminophen 500 MG Tab PO SCH ×3 (07:53→19:15)
[2022-12-02] MEDS: Calcium Carbonate 750 MG Tab.Chew PO SCH (07:53)
[2022-12-02] MEDS: Cyanocobalamin (Vitamin B12) 1,000 MCG Tab PO SCH (07:54)
[2022-12-02] MEDS: traMADol 50 MG Tab PO SCH (07:55)
[2022-12-02] MEDS: LEVOTHYROXINE 137 MCG PO SCH (19:14)
[2022-12-02] MEDS: BUPROPION 300 MG PO SCH (19:14)
[2022-12-02] MEDS: Menthol 10%/Methyl Salicylate 15% 85 GM Tube TOP PRN (19:15)
[2022-12-03] MEDS: Potassium Chloride 20 MEQ Tab.ER PO SCH ×2 (08:08→17:56)
[2022-12-03] MEDS: Furosemide 20 MG Tab PO SCH (08:08)
[2022-12-03] MEDS: Citalopram 20 MG Tab PO SCH (08:08)
[2022-12-03] MEDS: Albuterol/Ipratropium 3.0-0.5 MG/3 ML Neb Soln NEB SCH ×2 (08:09→19:24)
[2022-12-03] MEDS: Polyethylene Glycol 3350 Powder 510 GM Bot PO SCH (08:10)
[2022-12-03] MEDS: guaiFENesin 600 MG Tab.ER PO SCH ×2 (08:10→19:23)
[2022-12-03] MEDS: Calcium Carbonate 750 MG Tab.Chew PO SCH (08:11)
[2022-12-03] MEDS: Acetaminophen 500 MG Tab PO SCH ×3 (08:11→19:24)
[2022-12-03] MEDS: Cyanocobalamin (Vitamin B12) 1,000 MCG Tab PO SCH (08:12)
[2022-12-03] MEDS: traMADol 50 MG Tab PO SCH (08:13)
[2022-12-03] MEDS: BUPROPION 300 MG PO SCH (19:23)
[2022-12-03] MEDS: LEVOTHYROXINE 137 MCG PO SCH (19:23)
[2022-12-04] MEDS: Potassium Chloride 20 MEQ Tab.ER PO SCH ×2 (07:26→17:43)
[2022-12-04] MEDS: Furosemide 20 MG Tab PO SCH (07:26)
[2022-12-04] MEDS: Citalopram 20 MG Tab PO SCH (07:27)
[2022-12-04] MEDS: Polyethylene Glycol 3350 Powder 510 GM Bot PO SCH (07:28)
[2022-12-04] MEDS: Albuterol/Ipratropium 3.0-0.5 MG/3 ML Neb Soln NEB SCH ×2 (07:28→19:02)
[2022-12-04] MEDS: guaiFENesin 600 MG Tab.ER PO SCH ×2 (07:29→19:02)
[2022-12-04] MEDS: Acetaminophen 500 MG Tab PO SCH ×3 (07:30→19:03)
[2022-12-04] MEDS: Calcium Carbonate 750 MG Tab.Chew PO SCH (07:30)
[2022-12-04] MEDS: traMADol 50 MG Tab PO SCH (07:31)
[2022-12-04] MEDS: Cyanocobalamin (Vitamin B12) 1,000 MCG Tab PO SCH (07:37)
[2022-12-04] MEDS: LEVOTHYROXINE 137 MCG PO SCH (19:03)
[2022-12-04] MEDS: BUPROPION 300 MG PO SCH (19:03)
[2022-12-05] MEDS: Polyethylene Glycol 3350 Powder 510 GM Bot PO SCH (07:18)
[2022-12-05] MEDS: Albuterol/Ipratropium 3.0-0.5 MG/3 ML Neb Soln NEB SCH ×2 (07:19→19:09)
[2022-12-05] MEDS: Citalopram 20 MG Tab PO SCH (07:19)
[2022-12-05] MEDS: Furosemide 20 MG Tab PO SCH (07:20)
[2022-12-05] MEDS: Acetaminophen 500 MG Tab PO SCH ×3 (07:20→19:11)
[2022-12-05] MEDS: Potassium Chloride 20 MEQ Tab.ER PO SCH ×2 (07:20→17:30)
[2022-12-05] MEDS: Calcium Carbonate 750 MG Tab.Chew PO SCH (07:21)
[2022-12-05] MEDS: guaiFENesin 600 MG Tab.ER PO SCH ×2 (07:21→19:10)
[2022-12-05] MEDS: traMADol 50 MG Tab PO SCH (07:21)
[2022-12-05] MEDS: Cyanocobalamin (Vitamin B12) 1,000 MCG Tab PO SCH (07:22)
[2022-12-05] MEDS: LEVOTHYROXINE 137 MCG PO SCH (19:10)
[2022-12-05] MEDS: BUPROPION 300 MG PO SCH (19:10)
[2022-12-06] MEDS: traMADol 50 MG Tab PO SCH (07:08)
[2022-12-06] MEDS: Acetaminophen 500 MG Tab PO SCH ×3 (07:08→19:20)
[2022-12-06] MEDS: Cyanocobalamin (Vitamin B12) 1,000 MCG Tab PO SCH (07:09)
[2022-12-06] MEDS: Calcium Carbonate 750 MG Tab.Chew PO SCH (07:09)
[2022-12-06] MEDS: guaiFENesin 600 MG Tab.ER PO SCH ×2 (07:09→19:20)
[2022-12-06] MEDS: Potassium Chloride 20 MEQ Tab.ER PO SCH ×2 (07:10→17:39)
[2022-12-06] MEDS: Polyethylene Glycol 3350 Powder 510 GM Bot PO SCH (07:10)
[2022-12-06] MEDS: Citalopram 20 MG Tab PO SCH (07:10)
[2022-12-06] MEDS: Albuterol/Ipratropium 3.0-0.5 MG/3 ML Neb Soln NEB SCH ×2 (07:10→19:19)
[2022-12-06] MEDS: Furosemide 20 MG Tab PO SCH (07:11)
[2022-12-06] MEDS: LEVOTHYROXINE 137 MCG PO SCH (19:19)
[2022-12-06] MEDS: BUPROPION 300 MG PO SCH (19:20)
[2022-12-06] MEDS: Menthol 10%/Methyl Salicylate 15% 85 GM Tube TOP PRN (19:21)
[2022-12-07] MEDS: Polyethylene Glycol 3350 Powder 510 GM Bot PO SCH (07:07)
[2022-12-07] MEDS: Acetaminophen 500 MG Tab PO SCH ×3 (07:08→19:14)
[2022-12-07] MEDS: traMADol 50 MG Tab PO SCH (07:08)
[2022-12-07] MEDS: Calcium Carbonate 750 MG Tab.Chew PO SCH (07:09)
[2022-12-07] MEDS: Citalopram 20 MG Tab PO SCH (07:09)
[2022-12-07] MEDS: Cyanocobalamin (Vitamin B12) 1,000 MCG Tab PO SCH (07:09)
[2022-12-07] MEDS: guaiFENesin 600 MG Tab.ER PO SCH ×2 (07:09→19:14)
[2022-12-07] MEDS: Potassium Chloride 20 MEQ Tab.ER PO SCH ×2 (07:10→17:23)
[2022-12-07] MEDS: Furosemide 20 MG Tab PO SCH (07:10)
[2022-12-07] MEDS: Albuterol/Ipratropium 3.0-0.5 MG/3 ML Neb Soln NEB SCH ×2 (07:10→19:13)
[2022-12-07] MEDS: LEVOTHYROXINE 137 MCG PO SCH (19:14)
[2022-12-07] MEDS: BUPROPION 300 MG PO SCH (19:14)
[2022-12-08] MEDS: Polyethylene Glycol 3350 Powder 510 GM Bot PO SCH (07:14)
[2022-12-08] MEDS: traMADol 50 MG Tab PO SCH (07:15)
[2022-12-08] MEDS: Acetaminophen 500 MG Tab PO SCH ×3 (07:15→19:15)
[2022-12-08] MEDS: guaiFENesin 600 MG Tab.ER PO SCH ×2 (07:16→19:15)
[2022-12-08] MEDS: Calcium Carbonate 750 MG Tab.Chew PO SCH (07:16)
[2022-12-08] MEDS: Citalopram 20 MG Tab PO SCH (07:16)
[2022-12-08] MEDS: Cyanocobalamin (Vitamin B12) 1,000 MCG Tab PO SCH (07:16)
[2022-12-08] MEDS: Furosemide 20 MG Tab PO SCH (07:17)
[2022-12-08] MEDS: Potassium Chloride 20 MEQ Tab.ER PO SCH ×2 (07:17→17:11)
[2022-12-08] MEDS: Albuterol/Ipratropium 3.0-0.5 MG/3 ML Neb Soln NEB SCH ×2 (07:17→19:14)
[2022-12-08] MEDS: BUPROPION 300 MG PO SCH (19:15)
[2022-12-08] MEDS: LEVOTHYROXINE 137 MCG PO SCH (19:15)
[2022-12-08] MEDS: Menthol 10%/Methyl Salicylate 15% 85 GM Tube TOP PRN (19:16)
[2022-12-09] MEDS: Potassium Chloride 20 MEQ Tab.ER PO SCH ×2 (07:02→17:31)
[2022-12-09] MEDS: Albuterol/Ipratropium 3.0-0.5 MG/3 ML Neb Soln NEB SCH ×2 (07:02→20:10)
[2022-12-09] MEDS: Citalopram 20 MG Tab PO SCH (07:02)
[2022-12-09] MEDS: Furosemide 20 MG Tab PO SCH (07:03)
[2022-12-09] MEDS: Polyethylene Glycol 3350 Powder 510 GM Bot PO SCH (07:03)
[2022-12-09] MEDS: guaiFENesin 600 MG Tab.ER PO SCH ×2 (07:03→20:11)
[2022-12-09] MEDS: Calcium Carbonate 750 MG Tab.Chew PO SCH (07:04)
[2022-12-09] MEDS: Acetaminophen 500 MG Tab PO SCH ×3 (07:04→20:12)
[2022-12-09] MEDS: Cyanocobalamin (Vitamin B12) 1,000 MCG Tab PO SCH (07:05)
[2022-12-09] MEDS: traMADol 50 MG Tab PO SCH (07:06)
[2022-12-09] MEDS: LEVOTHYROXINE 137 MCG PO SCH (20:11)
[2022-12-09] MEDS: BUPROPION 300 MG PO SCH (20:11)
[2022-12-10] MEDS: Polyethylene Glycol 3350 Powder 510 GM Bot PO SCH (07:20)
[2022-12-10] MEDS: traMADol 50 MG Tab PO SCH (07:21)
[2022-12-10] MEDS: Acetaminophen 500 MG Tab PO SCH ×3 (07:21→19:52)
[2022-12-10] MEDS: Cyanocobalamin (Vitamin B12) 1,000 MCG Tab PO SCH (07:22)
[2022-12-10] MEDS: Albuterol/Ipratropium 3.0-0.5 MG/3 ML Neb Soln NEB SCH ×2 (07:22→19:50)
[2022-12-10] MEDS: Calcium Carbonate 750 MG Tab.Chew PO SCH (07:22)
[2022-12-10] MEDS: Citalopram 20 MG Tab PO SCH (07:23)
[2022-12-10] MEDS: Potassium Chloride 20 MEQ Tab.ER PO SCH ×2 (07:23→17:12)
[2022-12-10] MEDS: Furosemide 20 MG Tab PO SCH (07:23)
[2022-12-10] MEDS: guaiFENesin 600 MG Tab.ER PO SCH ×2 (07:23→19:51)
[2022-12-10] MEDS: LEVOTHYROXINE 137 MCG PO SCH (19:50)
[2022-12-10] MEDS: BUPROPION 300 MG PO SCH (19:51)
[2022-12-11] MEDS: traMADol 50 MG Tab PO SCH (07:37)
[2022-12-11] MEDS: Polyethylene Glycol 3350 Powder 510 GM Bot PO SCH (07:37)
[2022-12-11] MEDS: Acetaminophen 500 MG Tab PO SCH ×3 (07:38→19:10)
[2022-12-11] MEDS: Calcium Carbonate 750 MG Tab.Chew PO SCH (07:38)
[2022-12-11] MEDS: guaiFENesin 600 MG Tab.ER PO SCH ×2 (07:39→19:10)
[2022-12-11] MEDS: Citalopram 20 MG Tab PO SCH (07:39)
[2022-12-11] MEDS: Albuterol/Ipratropium 3.0-0.5 MG/3 ML Neb Soln NEB SCH ×2 (07:39→19:09)
[2022-12-11] MEDS: Potassium Chloride 20 MEQ Tab.ER PO SCH ×2 (07:40→17:19)
[2022-12-11] MEDS: Furosemide 20 MG Tab PO SCH (07:40)
[2022-12-11] MEDS: Cyanocobalamin (Vitamin B12) 1,000 MCG Tab PO SCH (07:40)
[2022-12-11] MEDS: LEVOTHYROXINE 137 MCG PO SCH (19:10)
[2022-12-11] MEDS: BUPROPION 300 MG PO SCH (19:10)
[2022-12-11] MEDS: Menthol 10%/Methyl Salicylate 15% 85 GM Tube TOP PRN (19:11)
[2022-12-12] MEDS: Furosemide 20 MG Tab PO SCH (07:02)
[2022-12-12] MEDS: Citalopram 20 MG Tab PO SCH (07:02)
[2022-12-12] MEDS: Potassium Chloride 20 MEQ Tab.ER PO SCH ×2 (07:03→17:38)
[2022-12-12] MEDS: Polyethylene Glycol 3350 Powder 510 GM Bot PO SCH (07:04)
[2022-12-12] MEDS: Albuterol/Ipratropium 3.0-0.5 MG/3 ML Neb Soln NEB SCH ×2 (07:04→19:22)
[2022-12-12] MEDS: guaiFENesin 600 MG Tab.ER PO SCH ×2 (07:04→19:23)
[2022-12-12] MEDS: Calcium Carbonate 750 MG Tab.Chew PO SCH (07:05)
[2022-12-12] MEDS: Acetaminophen 500 MG Tab PO SCH ×3 (07:05→19:23)
[2022-12-12] MEDS: Cyanocobalamin (Vitamin B12) 1,000 MCG Tab PO SCH (07:06)
[2022-12-12] MEDS: traMADol 50 MG Tab PO SCH (07:07)
[2022-12-12] MEDS: BUPROPION 300 MG PO SCH (19:22)
[2022-12-12] MEDS: LEVOTHYROXINE 137 MCG PO SCH (19:22)
[2022-12-12] MEDS: Menthol 10%/Methyl Salicylate 15% 85 GM Tube TOP PRN (19:24)
[2022-12-13] MEDS: Potassium Chloride 20 MEQ Tab.ER PO SCH ×2 (07:55→17:12)
[2022-12-13] MEDS: Furosemide 20 MG Tab PO SCH (07:57)
[2022-12-13] MEDS: Citalopram 20 MG Tab PO SCH (07:58)
[2022-12-13] MEDS: Polyethylene Glycol 3350 Powder 510 GM Bot PO SCH (07:59)
[2022-12-13] MEDS: Acetaminophen 500 MG Tab PO SCH ×3 (08:00→19:06)
[2022-12-13] MEDS: Calcium Carbonate 750 MG Tab.Chew PO SCH (08:00)
[2022-12-13] MEDS: guaiFENesin 600 MG Tab.ER PO SCH ×2 (08:00→19:06)
[2022-12-13] MEDS: Cyanocobalamin (Vitamin B12) 1,000 MCG Tab PO SCH (08:01)
[2022-12-13] MEDS: traMADol 50 MG Tab PO SCH (08:02)
[2022-12-13] MEDS: Albuterol/Ipratropium 3.0-0.5 MG/3 ML Neb Soln NEB SCH ×2 (08:03→19:05)
[2022-12-13] MEDS: BUPROPION 300 MG PO SCH (19:05)
[2022-12-13] MEDS: LEVOTHYROXINE 137 MCG PO SCH (19:05)
[2022-12-14] MEDS: Citalopram 20 MG Tab PO SCH (07:26)
[2022-12-14] MEDS: Potassium Chloride 20 MEQ Tab.ER PO SCH ×2 (07:26→17:13)
[2022-12-14] MEDS: Furosemide 20 MG Tab PO SCH (07:26)
[2022-12-14] MEDS: Polyethylene Glycol 3350 Powder 510 GM Bot PO SCH (07:27)
[2022-12-14] MEDS: Albuterol/Ipratropium 3.0-0.5 MG/3 ML Neb Soln NEB SCH ×2 (07:27→19:08)
[2022-12-14] MEDS: Calcium Carbonate 750 MG Tab.Chew PO SCH (07:28)
[2022-12-14] MEDS: guaiFENesin 600 MG Tab.ER PO SCH ×2 (07:28→19:08)
[2022-12-14] MEDS: Cyanocobalamin (Vitamin B12) 1,000 MCG Tab PO SCH (07:31)
[2022-12-14] MEDS: Acetaminophen 500 MG Tab PO SCH ×3 (07:31→19:08)
[2022-12-14] MEDS: traMADol 50 MG Tab PO SCH (07:32)
[2022-12-14] MEDS: LEVOTHYROXINE 137 MCG PO SCH (19:08)
[2022-12-14] MEDS: BUPROPION 300 MG PO SCH (19:08)
[2022-12-15] MEDS: traMADol 50 MG Tab PO SCH (07:02)
[2022-12-15] MEDS: Furosemide 20 MG Tab PO SCH (07:10)
[2022-12-15] MEDS: Cyanocobalamin (Vitamin B12) 1,000 MCG Tab PO SCH (07:10)
[2022-12-15] MEDS: Polyethylene Glycol 3350 Powder 510 GM Bot PO SCH (07:10)
[2022-12-15] MEDS: Citalopram 20 MG Tab PO SCH (07:10)
[2022-12-15] MEDS: Potassium Chloride 20 MEQ Tab.ER PO SCH ×2 (07:10→17:10)
[2022-12-15] MEDS: Acetaminophen 500 MG Tab PO SCH ×3 (07:11→19:06)
[2022-12-15] MEDS: guaiFENesin 600 MG Tab.ER PO SCH ×2 (07:11→19:06)
[2022-12-15] MEDS: Calcium Carbonate 750 MG Tab.Chew PO SCH (07:11)
[2022-12-15] MEDS: Albuterol/Ipratropium 3.0-0.5 MG/3 ML Neb Soln NEB SCH ×2 (07:11→19:06)
[2022-12-15] MEDS: BUPROPION 300 MG PO SCH (19:06)
[2022-12-15] MEDS: LEVOTHYROXINE 137 MCG PO SCH (19:06)
[2022-12-16] MEDS: Polyethylene Glycol 3350 Powder 510 GM Bot PO SCH (07:18)
[2022-12-16] MEDS: traMADol 50 MG Tab PO SCH (07:19)
[2022-12-16] MEDS: guaiFENesin 600 MG Tab.ER PO SCH ×2 (07:19→19:20)
[2022-12-16] MEDS: Acetaminophen 500 MG Tab PO SCH ×3 (07:20→19:20)
[2022-12-16] MEDS: Calcium Carbonate 750 MG Tab.Chew PO SCH (07:20)
[2022-12-16] MEDS: Albuterol/Ipratropium 3.0-0.5 MG/3 ML Neb Soln NEB SCH ×2 (07:22→19:19)
[2022-12-16] MEDS: Cyanocobalamin (Vitamin B12) 1,000 MCG Tab PO SCH (07:22)
[2022-12-16] MEDS: Citalopram 20 MG Tab PO SCH (07:22)
[2022-12-16] MEDS: Furosemide 20 MG Tab PO SCH (07:23)
[2022-12-16] MEDS: Potassium Chloride 20 MEQ Tab.ER PO SCH ×2 (07:23→17:27)
[2022-12-16] MEDS: LEVOTHYROXINE 137 MCG PO SCH (19:19)
[2022-12-16] MEDS: BUPROPION 300 MG PO SCH (19:19)
[2022-12-16] MEDS: Menthol 10%/Methyl Salicylate 15% 85 GM Tube TOP PRN (19:22)
[2022-12-17] MEDS: Polyethylene Glycol 3350 Powder 510 GM Bot PO SCH (07:11)
[2022-12-17] MEDS: Acetaminophen 500 MG Tab PO SCH ×3 (07:12→19:13)
[2022-12-17] MEDS: traMADol 50 MG Tab PO SCH (07:12)
[2022-12-17] MEDS: guaiFENesin 600 MG Tab.ER PO SCH ×2 (07:13→19:12)
[2022-12-17] MEDS: Calcium Carbonate 750 MG Tab.Chew PO SCH (07:13)
[2022-12-17] MEDS: Potassium Chloride 20 MEQ Tab.ER PO SCH ×2 (07:14→17:46)
[2022-12-17] MEDS: Citalopram 20 MG Tab PO SCH (07:14)
[2022-12-17] MEDS: Furosemide 20 MG Tab PO SCH (07:14)
[2022-12-17] MEDS: Albuterol/Ipratropium 3.0-0.5 MG/3 ML Neb Soln NEB SCH ×2 (07:14→19:12)
[2022-12-17] MEDS: Cyanocobalamin (Vitamin B12) 1,000 MCG Tab PO SCH (07:15)
[2022-12-17] MEDS: Menthol 10%/Methyl Salicylate 15% 85 GM Tube TOP PRN (19:10)
[2022-12-17] MEDS: BUPROPION 300 MG PO SCH (19:12)
[2022-12-17] MEDS: LEVOTHYROXINE 137 MCG PO SCH (19:12)
[2022-12-18] MEDS: Polyethylene Glycol 3350 Powder 510 GM Bot PO SCH (07:23)
[2022-12-18] MEDS: Calcium Carbonate 750 MG Tab.Chew PO SCH (07:23)
[2022-12-18] MEDS: traMADol 50 MG Tab PO SCH (07:25)
[2022-12-18] MEDS: Acetaminophen 500 MG Tab PO SCH ×3 (07:26→19:15)
[2022-12-18] MEDS: guaiFENesin 600 MG Tab.ER PO SCH ×2 (07:26→19:15)
[2022-12-18] MEDS: Citalopram 20 MG Tab PO SCH (07:27)
[2022-12-18] MEDS: Furosemide 20 MG Tab PO SCH (07:27)
[2022-12-18] MEDS: Albuterol/Ipratropium 3.0-0.5 MG/3 ML Neb Soln NEB SCH ×2 (07:27→19:15)
[2022-12-18] MEDS: Potassium Chloride 20 MEQ Tab.ER PO SCH ×2 (07:27→17:19)
[2022-12-18] MEDS: Cyanocobalamin (Vitamin B12) 1,000 MCG Tab PO SCH (07:28)
[2022-12-18] MEDS: LEVOTHYROXINE 137 MCG PO SCH (19:15)
[2022-12-18] MEDS: BUPROPION 300 MG PO SCH (19:15)
[2022-12-18] MEDS: Menthol 10%/Methyl Salicylate 15% 85 GM Tube TOP PRN (19:16)
[2022-12-19] MEDS: Citalopram 20 MG Tab PO SCH (07:00)
[2022-12-19] MEDS: Potassium Chloride 20 MEQ Tab.ER PO SCH ×2 (07:01→17:27)
[2022-12-19] MEDS: Albuterol/Ipratropium 3.0-0.5 MG/3 ML Neb Soln NEB SCH ×2 (07:01→19:14)
[2022-12-19] MEDS: Furosemide 20 MG Tab PO SCH (07:01)
[2022-12-19] MEDS: Polyethylene Glycol 3350 Powder 510 GM Bot PO SCH (07:01)
[2022-12-19] MEDS: Acetaminophen 500 MG Tab PO SCH ×3 (07:02→19:14)
[2022-12-19] MEDS: guaiFENesin 600 MG Tab.ER PO SCH ×2 (07:02→19:14)
[2022-12-19] MEDS: Calcium Carbonate 750 MG Tab.Chew PO SCH (07:02)
[2022-12-19] MEDS: Cyanocobalamin (Vitamin B12) 1,000 MCG Tab PO SCH (07:04)
[2022-12-19] MEDS: traMADol 50 MG Tab PO SCH (07:08)
[2022-12-19] MEDS: BUPROPION 300 MG PO SCH (19:14)
[2022-12-19] MEDS: LEVOTHYROXINE 137 MCG PO SCH (19:14)
[2022-12-20] MEDS: Citalopram 20 MG Tab PO SCH (07:44)
[2022-12-20] MEDS: Potassium Chloride 20 MEQ Tab.ER PO SCH ×2 (07:44→17:37)
[2022-12-20] MEDS: Albuterol/Ipratropium 3.0-0.5 MG/3 ML Neb Soln NEB SCH ×2 (07:44→19:26)
[2022-12-20] MEDS: Furosemide 20 MG Tab PO SCH (07:45)
[2022-12-20] MEDS: Polyethylene Glycol 3350 Powder 510 GM Bot PO SCH (07:45)
[2022-12-20] MEDS: guaiFENesin 600 MG Tab.ER PO SCH ×2 (07:47→19:27)
[2022-12-20] MEDS: Calcium Carbonate 750 MG Tab.Chew PO SCH (07:48)
[2022-12-20] MEDS: Acetaminophen 500 MG Tab PO SCH ×3 (07:48→19:28)
[2022-12-20] MEDS: Cyanocobalamin (Vitamin B12) 1,000 MCG Tab PO SCH (07:50)
[2022-12-20] MEDS: traMADol 50 MG Tab PO SCH (07:50)
[2022-12-20] MEDS: LEVOTHYROXINE 137 MCG PO SCH (19:27)
[2022-12-20] MEDS: BUPROPION 300 MG PO SCH (19:28)
[2022-12-21] MEDS: Citalopram 20 MG Tab PO SCH (07:01)
[2022-12-21] MEDS: Potassium Chloride 20 MEQ Tab.ER PO SCH ×2 (07:01→17:49)
[2022-12-21] MEDS: Furosemide 20 MG Tab PO SCH (07:02)
[2022-12-21] MEDS: Albuterol/Ipratropium 3.0-0.5 MG/3 ML Neb Soln NEB SCH ×2 (07:03→19:31)
[2022-12-21] MEDS: Polyethylene Glycol 3350 Powder 510 GM Bot PO SCH (07:03)
[2022-12-21] MEDS: guaiFENesin 600 MG Tab.ER PO SCH ×2 (07:04→19:31)
[2022-12-21] MEDS: Calcium Carbonate 750 MG Tab.Chew PO SCH (07:05)
[2022-12-21] MEDS: Acetaminophen 500 MG Tab PO SCH ×3 (07:06→19:32)
[2022-12-21] MEDS: traMADol 50 MG Tab PO SCH (07:07)
[2022-12-21] MEDS: Cyanocobalamin (Vitamin B12) 1,000 MCG Tab PO SCH (07:07)
[2022-12-21] MEDS: LEVOTHYROXINE 137 MCG PO SCH (19:31)
[2022-12-21] MEDS: BUPROPION 300 MG PO SCH (19:32)
[2022-12-22] MEDS: traMADol 50 MG Tab PO SCH (07:00)
[2022-12-22] MEDS: Acetaminophen 500 MG Tab PO SCH ×3 (07:01→19:16)
[2022-12-22] MEDS: Albuterol/Ipratropium 3.0-0.5 MG/3 ML Neb Soln NEB SCH ×2 (07:01→19:14)
[2022-12-22] MEDS: Potassium Chloride 20 MEQ Tab.ER PO SCH ×2 (07:01→17:15)
[2022-12-22] MEDS: Furosemide 20 MG Tab PO SCH (07:01)
[2022-12-22] MEDS: Citalopram 20 MG Tab PO SCH (07:01)
[2022-12-22] MEDS: Calcium Carbonate 750 MG Tab.Chew PO SCH (07:02)
[2022-12-22] MEDS: guaiFENesin 600 MG Tab.ER PO SCH ×2 (07:02→19:15)
[2022-12-22] MEDS: Cyanocobalamin (Vitamin B12) 1,000 MCG Tab PO SCH (07:03)
[2022-12-22] MEDS: Polyethylene Glycol 3350 Powder 510 GM Bot PO SCH (08:36)
[2022-12-22] MEDS: LEVOTHYROXINE 137 MCG PO SCH (19:15)
[2022-12-22] MEDS: BUPROPION 300 MG PO SCH (19:15)
[2022-12-23] MEDS: Potassium Chloride 20 MEQ Tab.ER PO SCH ×2 (07:14→17:55)
[2022-12-23] MEDS: Furosemide 20 MG Tab PO SCH (07:14)
[2022-12-23] MEDS: Citalopram 20 MG Tab PO SCH (07:14)
[2022-12-23] MEDS: Albuterol/Ipratropium 3.0-0.5 MG/3 ML Neb Soln NEB SCH ×2 (07:15→19:14)
[2022-12-23] MEDS: Polyethylene Glycol 3350 Powder 510 GM Bot PO SCH (07:15)
[2022-12-23] MEDS: guaiFENesin 600 MG Tab.ER PO SCH ×2 (07:15→19:16)
[2022-12-23] MEDS: Acetaminophen 500 MG Tab PO SCH ×3 (07:16→19:16)
[2022-12-23] MEDS: Calcium Carbonate 750 MG Tab.Chew PO SCH (07:16)
[2022-12-23] MEDS: Cyanocobalamin (Vitamin B12) 1,000 MCG Tab PO SCH (07:18)
[2022-12-23] MEDS: traMADol 50 MG Tab PO SCH (07:26)
[2022-12-23] MEDS: LEVOTHYROXINE 137 MCG PO SCH (19:15)
[2022-12-23] MEDS: BUPROPION 300 MG PO SCH (19:15)
[2022-12-23] MEDS: Menthol 10%/Methyl Salicylate 15% 85 GM Tube TOP PRN (19:19)
[2022-12-24] MEDS: Polyethylene Glycol 3350 Powder 510 GM Bot PO SCH (07:20)
[2022-12-24] MEDS: traMADol 50 MG Tab PO SCH (07:20)
[2022-12-24] MEDS: Acetaminophen 500 MG Tab PO SCH ×3 (07:21→19:21)
[2022-12-24] MEDS: Calcium Carbonate 750 MG Tab.Chew PO SCH (07:21)
[2022-12-24] MEDS: Cyanocobalamin (Vitamin B12) 1,000 MCG Tab PO SCH (07:22)
[2022-12-24] MEDS: guaiFENesin 600 MG Tab.ER PO SCH ×2 (07:22→19:21)
[2022-12-24] MEDS: Potassium Chloride 20 MEQ Tab.ER PO SCH ×2 (07:22→17:20)
[2022-12-24] MEDS: Albuterol/Ipratropium 3.0-0.5 MG/3 ML Neb Soln NEB SCH ×2 (07:22→19:20)
[2022-12-24] MEDS: Citalopram 20 MG Tab PO SCH (07:22)
[2022-12-24] MEDS: Furosemide 20 MG Tab PO SCH (07:23)
[2022-12-24] MEDS: LEVOTHYROXINE 137 MCG PO SCH (19:20)
[2022-12-24] MEDS: BUPROPION 300 MG PO SCH (19:20)
[2022-12-24] MEDS: Menthol 10%/Methyl Salicylate 15% 85 GM Tube TOP PRN (19:22)
[2022-12-25] MEDS: Polyethylene Glycol 3350 Powder 510 GM Bot PO SCH (07:30)
[2022-12-25] MEDS: traMADol 50 MG Tab PO SCH (07:31)
[2022-12-25] MEDS: Acetaminophen 500 MG Tab PO SCH ×3 (07:32→19:11)
[2022-12-25] MEDS: guaiFENesin 600 MG Tab.ER PO SCH ×2 (07:32→19:11)
[2022-12-25] MEDS: Furosemide 20 MG Tab PO SCH (07:33)
[2022-12-25] MEDS: Citalopram 20 MG Tab PO SCH (07:33)
[2022-12-25] MEDS: Potassium Chloride 20 MEQ Tab.ER PO SCH ×2 (07:33→17:09)
[2022-12-25] MEDS: Albuterol/Ipratropium 3.0-0.5 MG/3 ML Neb Soln NEB SCH ×2 (07:33→19:11)
[2022-12-25] MEDS: Cyanocobalamin (Vitamin B12) 1,000 MCG Tab PO SCH (07:33)
[2022-12-25] MEDS: Calcium Carbonate 750 MG Tab.Chew PO SCH (07:34)
[2022-12-25] MEDS: LEVOTHYROXINE 137 MCG PO SCH (19:10)
[2022-12-25] MEDS: BUPROPION 300 MG PO SCH (19:10)
[2022-12-25] MEDS: Menthol 10%/Methyl Salicylate 15% 85 GM Tube TOP PRN (19:12)
[2022-12-26] MEDS: Potassium Chloride 20 MEQ Tab.ER PO SCH ×2 (07:13→17:00)
[2022-12-26] MEDS: Albuterol/Ipratropium 3.0-0.5 MG/3 ML Neb Soln NEB SCH ×2 (07:14→19:57)
[2022-12-26] MEDS: Polyethylene Glycol 3350 Powder 510 GM Bot PO SCH (07:14)
[2022-12-26] MEDS: Furosemide 20 MG Tab PO SCH (07:14)
[2022-12-26] MEDS: Citalopram 20 MG Tab PO SCH (07:14)
[2022-12-26] MEDS: guaiFENesin 600 MG Tab.ER PO SCH ×2 (07:15→19:58)
[2022-12-26] MEDS: Calcium Carbonate 750 MG Tab.Chew PO SCH (07:15)
[2022-12-26] MEDS: Acetaminophen 500 MG Tab PO SCH ×3 (07:16→19:58)
[2022-12-26] MEDS: Cyanocobalamin (Vitamin B12) 1,000 MCG Tab PO SCH (07:17)
[2022-12-26] MEDS: traMADol 50 MG Tab PO SCH (09:52)
[2022-12-26] MEDS: LEVOTHYROXINE 137 MCG PO SCH (19:57)
[2022-12-26] MEDS: BUPROPION 300 MG PO SCH (19:58)
[2022-12-27] MEDS: Citalopram 20 MG Tab PO SCH (07:09)
[2022-12-27] MEDS: Albuterol/Ipratropium 3.0-0.5 MG/3 ML Neb Soln NEB SCH ×2 (07:09→19:13)
[2022-12-27] MEDS: Potassium Chloride 20 MEQ Tab.ER PO SCH ×2 (07:09→17:16)
[2022-12-27] MEDS: Furosemide 20 MG Tab PO SCH (07:09)
[2022-12-27] MEDS: guaiFENesin 600 MG Tab.ER PO SCH ×2 (07:10→19:13)
[2022-12-27] MEDS: Polyethylene Glycol 3350 Powder 510 GM Bot PO SCH (07:10)
[2022-12-27] MEDS: Calcium Carbonate 750 MG Tab.Chew PO SCH (07:10)
[2022-12-27] MEDS: Acetaminophen 500 MG Tab PO SCH ×3 (07:11→19:13)
[2022-12-27] MEDS: Cyanocobalamin (Vitamin B12) 1,000 MCG Tab PO SCH (07:12)
[2022-12-27] MEDS: traMADol 50 MG Tab PO SCH (07:13)
[2022-12-27] MEDS: LEVOTHYROXINE 137 MCG PO SCH (19:14)
[2022-12-27] MEDS: BUPROPION 300 MG PO SCH (19:14)
[2022-12-28] MEDS: Calcium Carbonate 750 MG Tab.Chew PO SCH (07:15)
[2022-12-28] MEDS: Polyethylene Glycol 3350 Powder 510 GM Bot PO SCH (07:15)
[2022-12-28] MEDS: Cyanocobalamin (Vitamin B12) 1,000 MCG Tab PO SCH (07:16)
[2022-12-28] MEDS: traMADol 50 MG Tab PO SCH (07:16)
[2022-12-28] MEDS: Acetaminophen 500 MG Tab PO SCH ×3 (07:17→19:10)
[2022-12-28] MEDS: guaiFENesin 600 MG Tab.ER PO SCH ×2 (07:18→19:10)
[2022-12-28] MEDS: Citalopram 20 MG Tab PO SCH (07:18)
[2022-12-28] MEDS: Potassium Chloride 20 MEQ Tab.ER PO SCH ×2 (07:18→17:15)
[2022-12-28] MEDS: Albuterol/Ipratropium 3.0-0.5 MG/3 ML Neb Soln NEB SCH ×2 (07:18→19:09)
[2022-12-28] MEDS: Furosemide 20 MG Tab PO SCH (07:19)
[2022-12-28] MEDS: LEVOTHYROXINE 137 MCG PO SCH (19:09)
[2022-12-28] MEDS: BUPROPION 300 MG PO SCH (19:09)
[2022-12-29] MEDS: Acetaminophen 500 MG Tab PO SCH ×3 (07:11→19:08)
[2022-12-29] MEDS: traMADol 50 MG Tab PO SCH (07:11)
[2022-12-29] MEDS: Calcium Carbonate 750 MG Tab.Chew PO SCH (07:12)
[2022-12-29] MEDS: guaiFENesin 600 MG Tab.ER PO SCH ×2 (07:12→19:09)
[2022-12-29] MEDS: Cyanocobalamin (Vitamin B12) 1,000 MCG Tab PO SCH (07:12)
[2022-12-29] MEDS: Citalopram 20 MG Tab PO SCH (07:13)
[2022-12-29] MEDS: Potassium Chloride 20 MEQ Tab.ER PO SCH ×2 (07:13→17:09)
[2022-12-29] MEDS: Albuterol/Ipratropium 3.0-0.5 MG/3 ML Neb Soln NEB SCH ×2 (07:13→19:08)
[2022-12-29] MEDS: Polyethylene Glycol 3350 Powder 510 GM Bot PO SCH (07:13)
[2022-12-29] MEDS: Furosemide 20 MG Tab PO SCH (07:14)
[2022-12-29] MEDS: BUPROPION 300 MG PO SCH (19:08)
[2022-12-29] MEDS: LEVOTHYROXINE 137 MCG PO SCH (19:08)
[2022-12-30] MEDS: Albuterol/Ipratropium 3.0-0.5 MG/3 ML Neb Soln NEB SCH ×2 (07:11→19:20)
[2022-12-30] MEDS: Potassium Chloride 20 MEQ Tab.ER PO SCH ×2 (07:11→17:59)
[2022-12-30] MEDS: Furosemide 20 MG Tab PO SCH (07:11)
[2022-12-30] MEDS: Citalopram 20 MG Tab PO SCH (07:11)
[2022-12-30] MEDS: Polyethylene Glycol 3350 Powder 510 GM Bot PO SCH (07:12)
[2022-12-30] MEDS: guaiFENesin 600 MG Tab.ER PO SCH ×2 (07:12→19:21)
[2022-12-30] MEDS: Acetaminophen 500 MG Tab PO SCH ×3 (07:13→19:21)
[2022-12-30] MEDS: Calcium Carbonate 750 MG Tab.Chew PO SCH (07:13)
[2022-12-30] MEDS: traMADol 50 MG Tab PO SCH (07:14)
[2022-12-30] MEDS: Cyanocobalamin (Vitamin B12) 1,000 MCG Tab PO SCH (07:14)
[2022-12-30] MEDS: LEVOTHYROXINE 137 MCG PO SCH (19:20)
[2022-12-30] MEDS: BUPROPION 300 MG PO SCH (19:21)
[2022-12-30] MEDS: Menthol 10%/Methyl Salicylate 15% 85 GM Tube TOP PRN (19:23)
[2022-12-31] MEDS: Potassium Chloride 20 MEQ Tab.ER PO SCH ×2 (08:57→18:06)
[2022-12-31] MEDS: Furosemide 20 MG Tab PO SCH (08:57)
[2022-12-31] MEDS: Citalopram 20 MG Tab PO SCH (08:58)
[2022-12-31] MEDS: Albuterol/Ipratropium 3.0-0.5 MG/3 ML Neb Soln NEB SCH ×2 (08:58→19:13)
[2022-12-31] MEDS: Polyethylene Glycol 3350 Powder 510 GM Bot PO SCH (08:59)
[2022-12-31] MEDS: guaiFENesin 600 MG Tab.ER PO SCH ×2 (08:59→19:14)
[2022-12-31] MEDS: Calcium Carbonate 750 MG Tab.Chew PO SCH (09:00)
[2022-12-31] MEDS: Acetaminophen 500 MG Tab PO SCH ×3 (09:00→19:14)
[2022-12-31] MEDS: Cyanocobalamin (Vitamin B12) 1,000 MCG Tab PO SCH (09:01)
[2022-12-31] MEDS: traMADol 50 MG Tab PO SCH (09:02)
[2022-12-31] MEDS: Menthol 10%/Methyl Salicylate 15% 85 GM Tube TOP PRN ×2 (09:10→19:15)
[2022-12-31] MEDS: traMADol 50 MG Tab PO PRN (18:08)
[2022-12-31] MEDS: LEVOTHYROXINE 137 MCG PO SCH (19:14)
[2022-12-31] MEDS: BUPROPION 300 MG PO SCH (19:14)
[2023-01-01] MEDS: Furosemide 20 MG Tab PO SCH (07:02)
[2023-01-01] MEDS: Potassium Chloride 20 MEQ Tab.ER PO SCH ×2 (07:03→17:27)
[2023-01-01] MEDS: Citalopram 20 MG Tab PO SCH (07:03)
[2023-01-01] MEDS: Albuterol/Ipratropium 3.0-0.5 MG/3 ML Neb Soln NEB SCH ×2 (07:03→19:59)
[2023-01-01] MEDS: Polyethylene Glycol 3350 Powder 510 GM Bot PO SCH (07:03)
[2023-01-01] MEDS: Acetaminophen 500 MG Tab PO SCH ×3 (07:04→20:00)
[2023-01-01] MEDS: guaiFENesin 600 MG Tab.ER PO SCH ×2 (07:04→20:00)
[2023-01-01] MEDS: Calcium Carbonate 750 MG Tab.Chew PO SCH (07:04)
[2023-01-01] MEDS: Cyanocobalamin (Vitamin B12) 1,000 MCG Tab PO SCH (07:06)
[2023-01-01] MEDS: traMADol 50 MG Tab PO SCH (07:08)
[2023-01-01] MEDS: LEVOTHYROXINE 137 MCG PO SCH (19:59)
[2023-01-01] MEDS: BUPROPION 300 MG PO SCH (20:00)
[2023-01-02] MEDS: Potassium Chloride 20 MEQ Tab.ER PO SCH ×2 (07:07→17:06)
[2023-01-02] MEDS: Furosemide 20 MG Tab PO SCH (07:07)
[2023-01-02] MEDS: Citalopram 20 MG Tab PO SCH (07:08)
[2023-01-02] MEDS: Polyethylene Glycol 3350 Powder 510 GM Bot PO SCH (07:08)
[2023-01-02] MEDS: guaiFENesin 600 MG Tab.ER PO SCH ×2 (07:09→19:48)
[2023-01-02] MEDS: Calcium Carbonate 750 MG Tab.Chew PO SCH (07:09)
[2023-01-02] MEDS: Acetaminophen 500 MG Tab PO SCH ×3 (07:09→19:48)
[2023-01-02] MEDS: Cyanocobalamin (Vitamin B12) 1,000 MCG Tab PO SCH (07:10)
[2023-01-02] MEDS: traMADol 50 MG Tab PO SCH (07:10)
[2023-01-02] MEDS: Albuterol/Ipratropium 3.0-0.5 MG/3 ML Neb Soln NEB SCH ×2 (07:12→19:46)
[2023-01-02] MEDS: LEVOTHYROXINE 137 MCG PO SCH (19:47)
[2023-01-02] MEDS: BUPROPION 300 MG PO SCH (19:48)
[2023-01-02] MEDS: Menthol 10%/Methyl Salicylate 15% 85 GM Tube TOP PRN (21:52)
[2023-01-02] MEDS: guaiFENesin/Dextromethorphan 100-10 MG/5 ML Soln 10 ML Cup PO PRN (23:51)
[2023-01-03 00:50] LABS: INFLUENZA A NAA NEGATIVE (NEGATIVE); INFLUENZA B NAA NEGATIVE (NEGATIVE); RESPIRATORY SYNCYTIAL VIR NAA NEGATIVE (NEGATIVE)
[2023-01-03 00:52] LABS: CORONAVIRUS COVID-19 NAA POSITIVE (NEGATIVE)
[2023-01-03] MEDS: Citalopram 20 MG Tab PO SCH (09:36)
[2023-01-03] MEDS: Potassium Chloride 20 MEQ Tab.ER PO SCH ×2 (09:36→18:08)
[2023-01-03] MEDS: Furosemide 20 MG Tab PO SCH (09:36)
[2023-01-03] MEDS: Calcium Carbonate 750 MG Tab.Chew PO SCH (09:38)
[2023-01-03] MEDS: guaiFENesin 600 MG Tab.ER PO SCH ×2 (09:38→19:53)
[2023-01-03] MEDS: Cyanocobalamin (Vitamin B12) 1,000 MCG Tab PO SCH (09:39)
[2023-01-03] MEDS: Acetaminophen 500 MG Tab PO SCH ×3 (09:40→19:54)
[2023-01-03] MEDS: traMADol 50 MG Tab PO SCH (09:41)
[2023-01-03] MEDS: Polyethylene Glycol 3350 Powder 510 GM Bot PO SCH (09:42)
[2023-01-03 11:32] LABS: BASOPHILS ABSOLUTE AUTO 0.01 K/uL (0.00-0.20); BASOPHILS PERCENT AUTO 0.2 % (0.0-2.0); EOSINOPHILS ABSOLUTE AUTO 0.09 K/uL (0.00-0.50); EOSINOPHILS PERCENT AUTO 1.7 % (0.0-5.0); HEMATOCRIT 41.5 % (34.0-46.0); HEMOGLOBIN 13.2 g/dL (11.7-15.5); LYMPHOCYTES ABSOLUTE AUTO 0.86 K/uL (0.50-3.50); LYMPHOCYTES PERCENT AUTO 16.3 % (10.0-50.0); MEAN CORPUSCULAR HEMOGLOBIN 34.3 pg (28.2-33.3); MEAN CORPUSCULAR HGB CONC 31.8 g/dL (31.7-36.0); MEAN CORPUSCULAR VOLUME 107.8 fL (84.0-98.0); MONOCYTES ABSOLUTE AUTO 0.66 K/uL (0.00-1.00); MONOCYTES PERCENT AUTO 12.5 % (2.0-14.0); NEUTROPHILS ABSOLUTE AUTO 3.65 K/uL (1.40-7.00); NEUTROPHILS PERCENT AUTO 69.3 % (45.0-80.0); PLATELET COUNT,PLT 135 K/uL (150-350); RED BLOOD CELL COUNT 3.85 M/uL (3.77-5.09); RED CELL DISTRIBUTION WIDTH 13.8 % (11.2-14.1); WHITE BLOOD CELL COUNT,WBC 5.3 K/uL (4.0-10.2)
[2023-01-03 11:53] LABS: ALBUMIN 2.9 g/dL (3.4-5.0); BILIRUBIN TOTAL 0.3 mg/dL (0.2-1.0); CALCIUM 9.2 mg/dL (8.5-10.1); CARBON DIOXIDE,CO2 35.4 mmol/L (21.0-32.0); CREATININE 0.61 mg/dL (0.51-1.17); EST CRCL DRUG DOSING (CG) 89.52 mL/min; POTASSIUM,K 4.6 mmol/L (3.5-5.1); PROTEIN TOTAL,TP 5.8 g/dL (6.4-8.2)
[2023-01-03 11:55] LABS: ANION GAP 7.2 meq/L (7-15)
[2023-01-03] MEDS: Albuterol/Ipratropium 3.0-0.5 MG/3 ML Neb Soln NEB SCH ×2 (12:31→19:52)
[2023-01-03] MEDS: Nirmatrelvir/Ritonavir 300 MG/100 MG Dose Pack PO SCH (18:09)
[2023-01-03] MEDS: LEVOTHYROXINE 137 MCG PO SCH (19:53)
[2023-01-03] MEDS: BUPROPION 300 MG PO SCH (19:53)
[2023-01-03] MEDS: Menthol 10%/Methyl Salicylate 15% 85 GM Tube TOP PRN (19:56)
[2023-01-04] MEDS: Citalopram 20 MG Tab PO SCH (08:15)
[2023-01-04] MEDS: Potassium Chloride 20 MEQ Tab.ER PO SCH ×2 (08:15→17:40)
[2023-01-04] MEDS: Furosemide 20 MG Tab PO SCH (08:16)
[2023-01-04] MEDS: guaiFENesin 600 MG Tab.ER PO SCH ×2 (08:17→19:19)
[2023-01-04] MEDS: Polyethylene Glycol 3350 Powder 510 GM Bot PO SCH (08:17)
[2023-01-04] MEDS: Nirmatrelvir/Ritonavir 300 MG/100 MG Dose Pack PO SCH ×2 (08:18→17:41)
[2023-01-04] MEDS: Acetaminophen 500 MG Tab PO SCH ×3 (08:19→19:19)
[2023-01-04] MEDS: Calcium Carbonate 750 MG Tab.Chew PO SCH (08:20)
[2023-01-04] MEDS: Cyanocobalamin (Vitamin B12) 1,000 MCG Tab PO SCH (08:21)
[2023-01-04] MEDS: traMADol 50 MG Tab PO SCH (08:21)
[2023-01-04] MEDS: BUPROPION 300 MG PO SCH (19:19)
[2023-01-04] MEDS: LEVOTHYROXINE 137 MCG PO SCH (19:19)
[2023-01-04] MEDS: Menthol 10%/Methyl Salicylate 15% 85 GM Tube TOP PRN (19:20)
[2023-01-05] MEDS: Furosemide 20 MG Tab PO SCH (08:22)
[2023-01-05] MEDS: Citalopram 20 MG Tab PO SCH (08:23)
[2023-01-05] MEDS: Polyethylene Glycol 3350 Powder 510 GM Bot PO SCH (08:23)
[2023-01-05] MEDS: Potassium Chloride 20 MEQ Tab.ER PO SCH ×2 (08:23→18:12)
[2023-01-05] MEDS: guaiFENesin 600 MG Tab.ER PO SCH ×2 (08:26→19:26)
[2023-01-05] MEDS: Nirmatrelvir/Ritonavir 300 MG/100 MG Dose Pack PO SCH ×2 (08:26→18:12)
[2023-01-05] MEDS: Cyanocobalamin (Vitamin B12) 1,000 MCG Tab PO SCH (08:27)
[2023-01-05] MEDS: Acetaminophen 500 MG Tab PO SCH ×3 (08:27→19:26)
[2023-01-05] MEDS: traMADol 50 MG Tab PO SCH (08:29)
[2023-01-05] MEDS: Calcium Carbonate 750 MG Tab.Chew PO SCH (08:33)
[2023-01-05] MEDS: BUPROPION 300 MG PO SCH (19:25)
[2023-01-05] MEDS: LEVOTHYROXINE 137 MCG PO SCH (19:25)
[2023-01-05] MEDS: Menthol 10%/Methyl Salicylate 15% 85 GM Tube TOP PRN (19:27)
[2023-01-06] MEDS: Furosemide 20 MG Tab PO SCH (07:00)
[2023-01-06] MEDS: Citalopram 20 MG Tab PO SCH (07:00)
[2023-01-06] MEDS: Potassium Chloride 20 MEQ Tab.ER PO SCH ×2 (07:00→17:06)
[2023-01-06] MEDS: Polyethylene Glycol 3350 Powder 510 GM Bot PO SCH (07:01)
[2023-01-06] MEDS: guaiFENesin 600 MG Tab.ER PO SCH ×2 (07:01→19:57)
[2023-01-06] MEDS: Calcium Carbonate 750 MG Tab.Chew PO SCH (07:03)
[2023-01-06] MEDS: Cyanocobalamin (Vitamin B12) 1,000 MCG Tab PO SCH (07:04)
[2023-01-06] MEDS: Acetaminophen 500 MG Tab PO SCH ×3 (07:10→19:50)
[2023-01-06] MEDS: traMADol 50 MG Tab PO SCH (07:11)
[2023-01-06] MEDS: Nirmatrelvir/Ritonavir 300 MG/100 MG Dose Pack PO SCH ×2 (08:40→17:07)
[2023-01-06] MEDS: LEVOTHYROXINE 137 MCG PO SCH (19:49)
[2023-01-06] MEDS: BUPROPION 300 MG PO SCH (19:50)
[2023-01-07] MEDS: Citalopram 20 MG Tab PO SCH (07:49)
[2023-01-07] MEDS: Polyethylene Glycol 3350 Powder 510 GM Bot PO SCH (07:50)
[2023-01-07] MEDS: Furosemide 20 MG Tab PO SCH (07:50)
[2023-01-07] MEDS: Potassium Chloride 20 MEQ Tab.ER PO SCH ×2 (07:50→17:36)
[2023-01-07] MEDS: Nirmatrelvir/Ritonavir 300 MG/100 MG Dose Pack PO SCH ×2 (07:51→17:37)
[2023-01-07] MEDS: guaiFENesin 600 MG Tab.ER PO SCH ×2 (07:51→19:23)
[2023-01-07] MEDS: Acetaminophen 500 MG Tab PO SCH ×3 (07:52→19:23)
[2023-01-07] MEDS: Calcium Carbonate 750 MG Tab.Chew PO SCH (07:52)
[2023-01-07] MEDS: Cyanocobalamin (Vitamin B12) 1,000 MCG Tab PO SCH (07:53)
[2023-01-07] MEDS: traMADol 50 MG Tab PO SCH (07:54)
[2023-01-07] MEDS: LEVOTHYROXINE 137 MCG PO SCH (19:23)
[2023-01-07] MEDS: BUPROPION 300 MG PO SCH (19:23)
[2023-01-08] MEDS: Citalopram 20 MG Tab PO SCH (08:22)
[2023-01-08] MEDS: Potassium Chloride 20 MEQ Tab.ER PO SCH ×2 (08:23→17:18)
[2023-01-08] MEDS: Polyethylene Glycol 3350 Powder 510 GM Bot PO SCH (08:23)
[2023-01-08] MEDS: Furosemide 20 MG Tab PO SCH (08:23)
[2023-01-08] MEDS: Nirmatrelvir/Ritonavir 300 MG/100 MG Dose Pack PO SCH (08:24)
[2023-01-08] MEDS: guaiFENesin 600 MG Tab.ER PO SCH ×2 (08:24→19:19)
[2023-01-08] MEDS: Calcium Carbonate 750 MG Tab.Chew PO SCH (08:25)
[2023-01-08] MEDS: Cyanocobalamin (Vitamin B12) 1,000 MCG Tab PO SCH (08:26)
[2023-01-08] MEDS: Acetaminophen 500 MG Tab PO SCH ×3 (08:26→19:20)
[2023-01-08] MEDS: traMADol 50 MG Tab PO SCH (08:27)
[2023-01-08] MEDS: LEVOTHYROXINE 137 MCG PO SCH (19:19)
[2023-01-08] MEDS: BUPROPION 300 MG PO SCH (19:19)
[2023-01-08] MEDS: Menthol 10%/Methyl Salicylate 15% 85 GM Tube TOP PRN (19:20)
[2023-01-09] MEDS: Citalopram 20 MG Tab PO SCH (08:58)
[2023-01-09] MEDS: Potassium Chloride 20 MEQ Tab.ER PO SCH ×2 (08:59→18:21)
[2023-01-09] MEDS: Furosemide 20 MG Tab PO SCH (09:01)
[2023-01-09] MEDS: guaiFENesin 600 MG Tab.ER PO SCH ×2 (09:02→19:53)
[2023-01-09] MEDS: Calcium Carbonate 750 MG Tab.Chew PO SCH (09:03)
[2023-01-09] MEDS: Acetaminophen 500 MG Tab PO SCH ×3 (09:03→19:54)
[2023-01-09] MEDS: Cyanocobalamin (Vitamin B12) 1,000 MCG Tab PO SCH (09:04)
[2023-01-09] MEDS: Polyethylene Glycol 3350 Powder 510 GM Bot PO SCH (09:05)
[2023-01-09] MEDS: traMADol 50 MG Tab PO SCH (09:06)
[2023-01-09] MEDS: LEVOTHYROXINE 137 MCG PO SCH (19:53)
[2023-01-09] MEDS: BUPROPION 300 MG PO SCH (19:53)
[2023-01-09] MEDS: Menthol 10%/Methyl Salicylate 15% 85 GM Tube TOP PRN (19:56)
[2023-01-10] MEDS: Acetaminophen 500 MG Tab PO SCH ×3 (07:00→19:14)
[2023-01-10] MEDS: guaiFENesin 600 MG Tab.ER PO SCH ×2 (07:00→19:13)
[2023-01-10] MEDS: Citalopram 20 MG Tab PO SCH (07:01)
[2023-01-10] MEDS: Potassium Chloride 20 MEQ Tab.ER PO SCH ×2 (07:01→17:26)
[2023-01-10] MEDS: Furosemide 20 MG Tab PO SCH (07:01)
[2023-01-10] MEDS: Polyethylene Glycol 3350 Powder 510 GM Bot PO SCH (07:02)
[2023-01-10] MEDS: Calcium Carbonate 750 MG Tab.Chew PO SCH (07:02)
[2023-01-10] MEDS: Cyanocobalamin (Vitamin B12) 1,000 MCG Tab PO SCH (07:03)
[2023-01-10] MEDS: traMADol 50 MG Tab PO SCH (07:03)
[2023-01-10] MEDS: LEVOTHYROXINE 137 MCG PO SCH (19:13)
[2023-01-10] MEDS: BUPROPION 300 MG PO SCH (19:14)
[2023-01-10] MEDS: Menthol 10%/Methyl Salicylate 15% 85 GM Tube TOP PRN (19:15)
[2023-01-11] MEDS: Furosemide 20 MG Tab PO SCH (07:29)
[2023-01-11] MEDS: Polyethylene Glycol 3350 Powder 510 GM Bot PO SCH (07:30)
[2023-01-11] MEDS: Citalopram 20 MG Tab PO SCH (07:30)
[2023-01-11] MEDS: Potassium Chloride 20 MEQ Tab.ER PO SCH ×2 (07:30→17:05)
[2023-01-11] MEDS: Cyanocobalamin (Vitamin B12) 1,000 MCG Tab PO SCH (07:31)
[2023-01-11] MEDS: Calcium Carbonate 750 MG Tab.Chew PO SCH (07:31)
[2023-01-11] MEDS: guaiFENesin 600 MG Tab.ER PO SCH ×2 (07:31→19:31)
[2023-01-11] MEDS: Acetaminophen 500 MG Tab PO SCH ×3 (07:32→19:31)
[2023-01-11] MEDS: traMADol 50 MG Tab PO SCH (07:33)
[2023-01-11] MEDS: LEVOTHYROXINE 137 MCG PO SCH (19:30)
[2023-01-11] MEDS: BUPROPION 300 MG PO SCH (19:31)
[2023-01-12] MEDS: Potassium Chloride 20 MEQ Tab.ER PO SCH ×2 (07:34→17:12)
[2023-01-12] MEDS: Citalopram 20 MG Tab PO SCH (07:34)
[2023-01-12] MEDS: Furosemide 20 MG Tab PO SCH (07:34)
[2023-01-12] MEDS: guaiFENesin 600 MG Tab.ER PO SCH ×2 (07:35→19:51)
[2023-01-12] MEDS: Polyethylene Glycol 3350 Powder 510 GM Bot PO SCH (07:35)
[2023-01-12] MEDS: Calcium Carbonate 750 MG Tab.Chew PO SCH (07:36)
[2023-01-12] MEDS: Acetaminophen 500 MG Tab PO SCH ×3 (07:36→19:52)
[2023-01-12] MEDS: traMADol 50 MG Tab PO SCH (07:37)
[2023-01-12] MEDS: Cyanocobalamin (Vitamin B12) 1,000 MCG Tab PO SCH (07:37)
[2023-01-12] MEDS: LEVOTHYROXINE 137 MCG PO SCH (19:51)
[2023-01-12] MEDS: BUPROPION 300 MG PO SCH (19:51)
[2023-01-13] MEDS: Potassium Chloride 20 MEQ Tab.ER PO SCH ×2 (08:27→17:42)
[2023-01-13] MEDS: Furosemide 20 MG Tab PO SCH (08:27)
[2023-01-13] MEDS: Citalopram 20 MG Tab PO SCH (08:27)
[2023-01-13] MEDS: guaiFENesin 600 MG Tab.ER PO SCH ×2 (08:28→19:08)
[2023-01-13] MEDS: Calcium Carbonate 750 MG Tab.Chew PO SCH (08:29)
[2023-01-13] MEDS: Acetaminophen 500 MG Tab PO SCH ×3 (08:29→19:08)
[2023-01-13] MEDS: Polyethylene Glycol 3350 Powder 510 GM Bot PO SCH (08:30)
[2023-01-13] MEDS: Albuterol/Ipratropium 3.0-0.5 MG/3 ML Neb Soln NEB SCH ×2 (08:32→19:07)
[2023-01-13] MEDS: traMADol 50 MG Tab PO SCH (08:33)
[2023-01-13] MEDS: Cyanocobalamin (Vitamin B12) 1,000 MCG Tab PO SCH (08:35)
[2023-01-13] MEDS: LEVOTHYROXINE 137 MCG PO SCH (19:08)
[2023-01-13] MEDS: BUPROPION 300 MG PO SCH (19:08)
[2023-01-13] MEDS: Menthol 10%/Methyl Salicylate 15% 85 GM Tube TOP PRN (19:09)
[2023-01-14] MEDS: Polyethylene Glycol 3350 Powder 510 GM Bot PO SCH (07:31)
[2023-01-14] MEDS: Calcium Carbonate 750 MG Tab.Chew PO SCH (07:31)
[2023-01-14] MEDS: Cyanocobalamin (Vitamin B12) 1,000 MCG Tab PO SCH (07:32)
[2023-01-14] MEDS: Acetaminophen 500 MG Tab PO SCH ×3 (07:32→19:24)
[2023-01-14] MEDS: Albuterol/Ipratropium 3.0-0.5 MG/3 ML Neb Soln NEB SCH ×2 (07:33→19:22)
[2023-01-14] MEDS: traMADol 50 MG Tab PO SCH (07:33)
[2023-01-14] MEDS: Citalopram 20 MG Tab PO SCH (07:34)
[2023-01-14] MEDS: Furosemide 20 MG Tab PO SCH (07:34)
[2023-01-14] MEDS: Potassium Chloride 20 MEQ Tab.ER PO SCH ×2 (07:34→17:11)
[2023-01-14] MEDS: guaiFENesin 600 MG Tab.ER PO SCH ×2 (07:35→19:23)
[2023-01-14] MEDS: BUPROPION 300 MG PO SCH (19:23)
[2023-01-14] MEDS: LEVOTHYROXINE 137 MCG PO SCH (19:23)
[2023-01-14] MEDS: Menthol 10%/Methyl Salicylate 15% 85 GM Tube TOP PRN (19:25)
[2023-01-15] MEDS: Potassium Chloride 20 MEQ Tab.ER PO SCH ×2 (08:23→18:14)
[2023-01-15] MEDS: Furosemide 20 MG Tab PO SCH (08:23)
[2023-01-15] MEDS: Citalopram 20 MG Tab PO SCH (08:24)
[2023-01-15] MEDS: Albuterol/Ipratropium 3.0-0.5 MG/3 ML Neb Soln NEB SCH ×2 (08:24→19:29)
[2023-01-15] MEDS: Calcium Carbonate 750 MG Tab.Chew PO SCH (08:25)
[2023-01-15] MEDS: guaiFENesin 600 MG Tab.ER PO SCH ×2 (08:25→19:30)
[2023-01-15] MEDS: Polyethylene Glycol 3350 Powder 510 GM Bot PO SCH (08:25)
[2023-01-15] MEDS: Acetaminophen 500 MG Tab PO SCH ×3 (08:26→19:30)
[2023-01-15] MEDS: Cyanocobalamin (Vitamin B12) 1,000 MCG Tab PO SCH (08:27)
[2023-01-15] MEDS: traMADol 50 MG Tab PO SCH (08:28)
[2023-01-15] MEDS: Menthol 10%/Methyl Salicylate 15% 85 GM Tube TOP PRN ×2 (08:29→19:31)
[2023-01-15] MEDS: BUPROPION 300 MG PO SCH (19:29)
[2023-01-15] MEDS: LEVOTHYROXINE 137 MCG PO SCH (19:29)
[2023-01-16] MEDS: Menthol 10%/Methyl Salicylate 15% 85 GM Tube TOP PRN ×2 (07:30→19:22)
[2023-01-16] MEDS: Furosemide 20 MG Tab PO SCH (09:02)
[2023-01-16] MEDS: Potassium Chloride 20 MEQ Tab.ER PO SCH ×2 (09:02→17:01)
[2023-01-16] MEDS: Citalopram 20 MG Tab PO SCH (09:03)
[2023-01-16] MEDS: guaiFENesin 600 MG Tab.ER PO SCH ×2 (09:04→19:22)
[2023-01-16] MEDS: Polyethylene Glycol 3350 Powder 510 GM Bot PO SCH (09:04)
[2023-01-16] MEDS: Albuterol/Ipratropium 3.0-0.5 MG/3 ML Neb Soln NEB SCH ×2 (09:04→19:20)
[2023-01-16] MEDS: Acetaminophen 500 MG Tab PO SCH ×3 (09:05→19:21)
[2023-01-16] MEDS: Calcium Carbonate 750 MG Tab.Chew PO SCH (09:05)
[2023-01-16] MEDS: Cyanocobalamin (Vitamin B12) 1,000 MCG Tab PO SCH (09:06)
[2023-01-16] MEDS: traMADol 50 MG Tab PO SCH (09:06)
[2023-01-16] MEDS: LEVOTHYROXINE 137 MCG PO SCH (19:21)
[2023-01-16] MEDS: BUPROPION 300 MG PO SCH (19:21)
[2023-01-17] MEDS: Polyethylene Glycol 3350 Powder 510 GM Bot PO SCH (07:32)
[2023-01-17] MEDS: traMADol 50 MG Tab PO SCH (07:32)
[2023-01-17] MEDS: Acetaminophen 500 MG Tab PO SCH ×3 (07:36→19:10)
[2023-01-17] MEDS: Calcium Carbonate 750 MG Tab.Chew PO SCH (07:37)
[2023-01-17] MEDS: Albuterol/Ipratropium 3.0-0.5 MG/3 ML Neb Soln NEB SCH ×2 (07:37→19:11)
[2023-01-17] MEDS: guaiFENesin 600 MG Tab.ER PO SCH ×2 (07:37→19:11)
[2023-01-17] MEDS: Potassium Chloride 20 MEQ Tab.ER PO SCH ×2 (07:38→17:16)
[2023-01-17] MEDS: Citalopram 20 MG Tab PO SCH (07:38)
[2023-01-17] MEDS: Cyanocobalamin (Vitamin B12) 1,000 MCG Tab PO SCH (07:39)
[2023-01-17] MEDS: Furosemide 20 MG Tab PO SCH (07:39)
[2023-01-17] MEDS: LEVOTHYROXINE 137 MCG PO SCH (19:10)
[2023-01-17] MEDS: BUPROPION 300 MG PO SCH (19:10)
[2023-01-18] MEDS: Albuterol/Ipratropium 3.0-0.5 MG/3 ML Neb Soln NEB SCH ×2 (07:42→19:08)
[2023-01-18] MEDS: traMADol 50 MG Tab PO SCH (07:44)
[2023-01-18] MEDS: Acetaminophen 500 MG Tab PO SCH ×3 (07:45→19:07)
[2023-01-18] MEDS: guaiFENesin 600 MG Tab.ER PO SCH ×2 (07:46→19:08)
[2023-01-18] MEDS: Calcium Carbonate 750 MG Tab.Chew PO SCH (07:46)
[2023-01-18] MEDS: Polyethylene Glycol 3350 Powder 510 GM Bot PO SCH (07:46)
[2023-01-18] MEDS: Citalopram 20 MG Tab PO SCH (07:47)
[2023-01-18] MEDS: Potassium Chloride 20 MEQ Tab.ER PO SCH ×2 (07:47→17:36)
[2023-01-18] MEDS: Furosemide 20 MG Tab PO SCH (07:47)
[2023-01-18] MEDS: Cyanocobalamin (Vitamin B12) 1,000 MCG Tab PO SCH (07:48)
[2023-01-18] MEDS: BUPROPION 300 MG PO SCH (19:08)
[2023-01-18] MEDS: LEVOTHYROXINE 137 MCG PO SCH (19:08)
[2023-01-19] MEDS: guaiFENesin/Dextromethorphan 100-10 MG/5 ML Soln 10 ML Cup PO PRN (01:06)
[2023-01-19] MEDS: Polyethylene Glycol 3350 Powder 510 GM Bot PO SCH (07:01)
[2023-01-19] MEDS: traMADol 50 MG Tab PO SCH (07:02)
[2023-01-19] MEDS: Acetaminophen 500 MG Tab PO SCH ×3 (07:03→19:00)
[2023-01-19] MEDS: guaiFENesin 600 MG Tab.ER PO SCH ×2 (07:03→19:00)
[2023-01-19] MEDS: Calcium Carbonate 750 MG Tab.Chew PO SCH (07:03)
[2023-01-19] MEDS: Albuterol/Ipratropium 3.0-0.5 MG/3 ML Neb Soln NEB SCH ×2 (07:04→19:00)
[2023-01-19] MEDS: Citalopram 20 MG Tab PO SCH (07:04)
[2023-01-19] MEDS: Potassium Chloride 20 MEQ Tab.ER PO SCH ×2 (07:04→17:14)
[2023-01-19] MEDS: Cyanocobalamin (Vitamin B12) 1,000 MCG Tab PO SCH (07:05)
[2023-01-19] MEDS: Furosemide 20 MG Tab PO SCH (07:05)
[2023-01-19] MEDS: LEVOTHYROXINE 137 MCG PO SCH (19:00)
[2023-01-19] MEDS: BUPROPION 300 MG PO SCH (19:00)
[2023-01-20] MEDS: Citalopram 20 MG Tab PO SCH (07:34)
[2023-01-20] MEDS: Potassium Chloride 20 MEQ Tab.ER PO SCH ×2 (07:34→17:50)
[2023-01-20] MEDS: Furosemide 20 MG Tab PO SCH (07:35)
[2023-01-20] MEDS: Polyethylene Glycol 3350 Powder 510 GM Bot PO SCH (07:35)
[2023-01-20] MEDS: guaiFENesin 600 MG Tab.ER PO SCH ×2 (07:36→19:21)
[2023-01-20] MEDS: Calcium Carbonate 750 MG Tab.Chew PO SCH (07:36)
[2023-01-20] MEDS: Acetaminophen 500 MG Tab PO SCH ×3 (07:37→19:21)
[2023-01-20] MEDS: Cyanocobalamin (Vitamin B12) 1,000 MCG Tab PO SCH (07:37)
[2023-01-20] MEDS: traMADol 50 MG Tab PO SCH (07:38)
[2023-01-20] MEDS: Albuterol/Ipratropium 3.0-0.5 MG/3 ML Neb Soln NEB SCH ×2 (07:41→19:21)
[2023-01-20] MEDS: BUPROPION 300 MG PO SCH (19:21)
[2023-01-20] MEDS: LEVOTHYROXINE 137 MCG PO SCH (19:21)
[2023-01-20] MEDS: Menthol 10%/Methyl Salicylate 15% 85 GM Tube TOP PRN (19:22)
[2023-01-21] MEDS: Potassium Chloride 20 MEQ Tab.ER PO SCH ×2 (07:43→17:32)
[2023-01-21] MEDS: Albuterol/Ipratropium 3.0-0.5 MG/3 ML Neb Soln NEB SCH ×2 (07:44→19:13)
[2023-01-21] MEDS: Polyethylene Glycol 3350 Powder 510 GM Bot PO SCH (07:44)
[2023-01-21] MEDS: Furosemide 20 MG Tab PO SCH (07:44)
[2023-01-21] MEDS: Citalopram 20 MG Tab PO SCH (07:44)
[2023-01-21] MEDS: Calcium Carbonate 750 MG Tab.Chew PO SCH (07:45)
[2023-01-21] MEDS: guaiFENesin 600 MG Tab.ER PO SCH ×2 (07:45→19:13)
[2023-01-21] MEDS: Acetaminophen 500 MG Tab PO SCH ×3 (07:45→19:14)
[2023-01-21] MEDS: traMADol 50 MG Tab PO SCH (07:46)
[2023-01-21] MEDS: Cyanocobalamin (Vitamin B12) 1,000 MCG Tab PO SCH (07:46)
[2023-01-21] MEDS: BUPROPION 300 MG PO SCH (19:13)
[2023-01-21] MEDS: LEVOTHYROXINE 137 MCG PO SCH (19:13)
[2023-01-21] MEDS: Menthol 10%/Methyl Salicylate 15% 85 GM Tube TOP PRN (19:14)
[2023-01-22] MEDS: Polyethylene Glycol 3350 Powder 510 GM Bot PO SCH (07:17)
[2023-01-22] MEDS: Acetaminophen 500 MG Tab PO SCH ×3 (07:18→19:57)
[2023-01-22] MEDS: traMADol 50 MG Tab PO SCH (07:18)
[2023-01-22] MEDS: Cyanocobalamin (Vitamin B12) 1,000 MCG Tab PO SCH (07:19)
[2023-01-22] MEDS: Potassium Chloride 20 MEQ Tab.ER PO SCH ×2 (07:19→17:22)
[2023-01-22] MEDS: Albuterol/Ipratropium 3.0-0.5 MG/3 ML Neb Soln NEB SCH ×2 (07:19→19:55)
[2023-01-22] MEDS: Calcium Carbonate 750 MG Tab.Chew PO SCH (07:19)
[2023-01-22] MEDS: Citalopram 20 MG Tab PO SCH (07:19)
[2023-01-22] MEDS: guaiFENesin 600 MG Tab.ER PO SCH ×2 (07:20→19:56)
[2023-01-22] MEDS: Furosemide 20 MG Tab PO SCH (07:20)
[2023-01-22] MEDS: LEVOTHYROXINE 137 MCG PO SCH (19:55)
[2023-01-22] MEDS: BUPROPION 300 MG PO SCH (19:56)
[2023-01-23] MEDS: traMADol 50 MG Tab PO SCH (07:17)
[2023-01-23] MEDS: Acetaminophen 500 MG Tab PO SCH ×3 (07:17→19:17)
[2023-01-23] MEDS: guaiFENesin 600 MG Tab.ER PO SCH ×2 (07:18→19:17)
[2023-01-23] MEDS: Polyethylene Glycol 3350 Powder 510 GM Bot PO SCH (07:18)
[2023-01-23] MEDS: Citalopram 20 MG Tab PO SCH (07:19)
[2023-01-23] MEDS: Furosemide 20 MG Tab PO SCH (07:19)
[2023-01-23] MEDS: Potassium Chloride 20 MEQ Tab.ER PO SCH ×2 (07:19→17:26)
[2023-01-23] MEDS: Calcium Carbonate 750 MG Tab.Chew PO SCH (07:19)
[2023-01-23] MEDS: Albuterol/Ipratropium 3.0-0.5 MG/3 ML Neb Soln NEB SCH ×2 (07:19→19:16)
[2023-01-23] MEDS: Cyanocobalamin (Vitamin B12) 1,000 MCG Tab PO SCH (07:20)
[2023-01-23] MEDS: LEVOTHYROXINE 137 MCG PO SCH (19:16)
[2023-01-23] MEDS: BUPROPION 300 MG PO SCH (19:16)
[2023-01-24] MEDS: Citalopram 20 MG Tab PO SCH (07:19)
[2023-01-24] MEDS: Albuterol/Ipratropium 3.0-0.5 MG/3 ML Neb Soln NEB SCH ×2 (07:19→19:18)
[2023-01-24] MEDS: Potassium Chloride 20 MEQ Tab.ER PO SCH ×2 (07:20→17:04)
[2023-01-24] MEDS: Furosemide 20 MG Tab PO SCH (07:20)
[2023-01-24] MEDS: guaiFENesin 600 MG Tab.ER PO SCH ×2 (07:21→19:19)
[2023-01-24] MEDS: Polyethylene Glycol 3350 Powder 510 GM Bot PO SCH (07:21)
[2023-01-24] MEDS: Calcium Carbonate 750 MG Tab.Chew PO SCH (07:21)
[2023-01-24] MEDS: Acetaminophen 500 MG Tab PO SCH ×3 (07:22→19:20)
[2023-01-24] MEDS: traMADol 50 MG Tab PO SCH (07:23)
[2023-01-24] MEDS: Cyanocobalamin (Vitamin B12) 1,000 MCG Tab PO SCH (07:23)
[2023-01-24] MEDS: LEVOTHYROXINE 137 MCG PO SCH (19:18)
[2023-01-24] MEDS: BUPROPION 300 MG PO SCH (19:18)
[2023-01-24] MEDS: Menthol 10%/Methyl Salicylate 15% 85 GM Tube TOP PRN (19:21)
[2023-01-25] MEDS: Cyanocobalamin (Vitamin B12) 1,000 MCG Tab PO SCH (07:01)
[2023-01-25] MEDS: Potassium Chloride 20 MEQ Tab.ER PO SCH ×2 (07:01→17:00)
[2023-01-25] MEDS: Albuterol/Ipratropium 3.0-0.5 MG/3 ML Neb Soln NEB SCH ×2 (07:01→19:19)
[2023-01-25] MEDS: Furosemide 20 MG Tab PO SCH (07:01)
[2023-01-25] MEDS: Citalopram 20 MG Tab PO SCH (07:01)
[2023-01-25] MEDS: Calcium Carbonate 750 MG Tab.Chew PO SCH (07:02)
[2023-01-25] MEDS: guaiFENesin 600 MG Tab.ER PO SCH ×2 (07:02→19:20)
[2023-01-25] MEDS: Polyethylene Glycol 3350 Powder 510 GM Bot PO SCH (07:02)
[2023-01-25] MEDS: Acetaminophen 500 MG Tab PO SCH ×3 (07:03→19:20)
[2023-01-25] MEDS: traMADol 50 MG Tab PO SCH (07:08)
[2023-01-25] MEDS: LEVOTHYROXINE 137 MCG PO SCH (19:19)
[2023-01-25] MEDS: BUPROPION 300 MG PO SCH (19:20)
[2023-01-25] MEDS: Menthol 10%/Methyl Salicylate 15% 85 GM Tube TOP PRN (19:21)
[2023-01-26] MEDS: Potassium Chloride 20 MEQ Tab.ER PO SCH ×2 (07:01→17:02)
[2023-01-26] MEDS: Citalopram 20 MG Tab PO SCH (07:01)
[2023-01-26] MEDS: Furosemide 20 MG Tab PO SCH (07:01)
[2023-01-26] MEDS: Albuterol/Ipratropium 3.0-0.5 MG/3 ML Neb Soln NEB SCH ×2 (07:02→19:40)
[2023-01-26] MEDS: guaiFENesin 600 MG Tab.ER PO SCH ×2 (07:02→19:41)
[2023-01-26] MEDS: Polyethylene Glycol 3350 Powder 510 GM Bot PO SCH (07:02)
[2023-01-26] MEDS: Cyanocobalamin (Vitamin B12) 1,000 MCG Tab PO SCH (07:03)
[2023-01-26] MEDS: Acetaminophen 500 MG Tab PO SCH ×3 (07:03→19:41)
[2023-01-26] MEDS: Calcium Carbonate 750 MG Tab.Chew PO SCH (07:05)
[2023-01-26] MEDS: traMADol 50 MG Tab PO SCH (07:05)
[2023-01-26] MEDS: BUPROPION 300 MG PO SCH (19:41)
[2023-01-26] MEDS: LEVOTHYROXINE 137 MCG PO SCH (19:41)
[2023-01-26] MEDS: Menthol 10%/Methyl Salicylate 15% 85 GM Tube TOP PRN (19:42)
[2023-01-27] MEDS: traMADol 50 MG Tab PO SCH (07:10)
[2023-01-27] MEDS: Calcium Carbonate 750 MG Tab.Chew PO SCH (07:11)
[2023-01-27] MEDS: Acetaminophen 500 MG Tab PO SCH ×3 (07:11→19:07)
[2023-01-27] MEDS: guaiFENesin 600 MG Tab.ER PO SCH ×2 (07:12→19:07)
[2023-01-27] MEDS: Potassium Chloride 20 MEQ Tab.ER PO SCH ×2 (07:12→17:08)
[2023-01-27] MEDS: Citalopram 20 MG Tab PO SCH (07:12)
[2023-01-27] MEDS: Polyethylene Glycol 3350 Powder 510 GM Bot PO SCH (07:12)
[2023-01-27] MEDS: Albuterol/Ipratropium 3.0-0.5 MG/3 ML Neb Soln NEB SCH ×2 (07:12→19:07)
[2023-01-27] MEDS: Cyanocobalamin (Vitamin B12) 1,000 MCG Tab PO SCH (07:13)
[2023-01-27] MEDS: Furosemide 20 MG Tab PO SCH (07:13)
[2023-01-27] MEDS: LEVOTHYROXINE 137 MCG PO SCH (19:07)
[2023-01-27] MEDS: BUPROPION 300 MG PO SCH (19:07)
[2023-01-27] MEDS: Menthol 10%/Methyl Salicylate 15% 85 GM Tube TOP PRN (20:14)
[2023-01-28] MEDS: Albuterol/Ipratropium 3.0-0.5 MG/3 ML Neb Soln NEB SCH ×2 (07:34→19:48)
[2023-01-28] MEDS: Citalopram 20 MG Tab PO SCH (07:34)
[2023-01-28] MEDS: Furosemide 20 MG Tab PO SCH (07:35)
[2023-01-28] MEDS: Potassium Chloride 20 MEQ Tab.ER PO SCH ×2 (07:35→17:08)
[2023-01-28] MEDS: Polyethylene Glycol 3350 Powder 510 GM Bot PO SCH (07:36)
[2023-01-28] MEDS: guaiFENesin 600 MG Tab.ER PO SCH ×2 (07:36→19:50)
[2023-01-28] MEDS: Calcium Carbonate 750 MG Tab.Chew PO SCH (07:37)
[2023-01-28] MEDS: Acetaminophen 500 MG Tab PO SCH ×3 (07:37→19:50)
[2023-01-28] MEDS: traMADol 50 MG Tab PO SCH (07:39)
[2023-01-28] MEDS: Cyanocobalamin (Vitamin B12) 1,000 MCG Tab PO SCH (07:41)
[2023-01-28] MEDS: LEVOTHYROXINE 137 MCG PO SCH (19:48)
[2023-01-28] MEDS: BUPROPION 300 MG PO SCH (19:49)
[2023-01-28] MEDS: Menthol 10%/Methyl Salicylate 15% 85 GM Tube TOP PRN (20:18)
[2023-01-29] MEDS: Citalopram 20 MG Tab PO SCH (07:11)
[2023-01-29] MEDS: Potassium Chloride 20 MEQ Tab.ER PO SCH ×2 (07:12→17:18)
[2023-01-29] MEDS: Albuterol/Ipratropium 3.0-0.5 MG/3 ML Neb Soln NEB SCH ×2 (07:12→19:01)
[2023-01-29] MEDS: Polyethylene Glycol 3350 Powder 510 GM Bot PO SCH (07:13)
[2023-01-29] MEDS: Furosemide 20 MG Tab PO SCH (07:13)
[2023-01-29] MEDS: guaiFENesin 600 MG Tab.ER PO SCH ×2 (07:14→19:02)
[2023-01-29] MEDS: Calcium Carbonate 750 MG Tab.Chew PO SCH (07:14)
[2023-01-29] MEDS: Acetaminophen 500 MG Tab PO SCH ×3 (07:16→19:02)
[2023-01-29] MEDS: traMADol 50 MG Tab PO SCH (07:17)
[2023-01-29] MEDS: Cyanocobalamin (Vitamin B12) 1,000 MCG Tab PO SCH (07:18)
[2023-01-29] MEDS: BUPROPION 300 MG PO SCH (19:02)
[2023-01-29] MEDS: LEVOTHYROXINE 137 MCG PO SCH (19:02)
[2023-01-29] MEDS: Menthol 10%/Methyl Salicylate 15% 85 GM Tube TOP PRN (19:03)
[2023-01-30] MEDS: Potassium Chloride 20 MEQ Tab.ER PO SCH ×2 (08:32→17:59)
[2023-01-30] MEDS: Citalopram 20 MG Tab PO SCH (08:32)
[2023-01-30] MEDS: Furosemide 20 MG Tab PO SCH (08:33)
[2023-01-30] MEDS: Albuterol/Ipratropium 3.0-0.5 MG/3 ML Neb Soln NEB SCH ×2 (08:34→19:39)
[2023-01-30] MEDS: Polyethylene Glycol 3350 Powder 510 GM Bot PO SCH (08:34)
[2023-01-30] MEDS: guaiFENesin 600 MG Tab.ER PO SCH ×2 (08:35→19:41)
[2023-01-30] MEDS: Acetaminophen 500 MG Tab PO SCH ×3 (08:36→19:42)
[2023-01-30] MEDS: Calcium Carbonate 750 MG Tab.Chew PO SCH (08:36)
[2023-01-30] MEDS: Cyanocobalamin (Vitamin B12) 1,000 MCG Tab PO SCH (08:37)
[2023-01-30] MEDS: traMADol 50 MG Tab PO SCH (08:38)
[2023-01-30] MEDS: LEVOTHYROXINE 137 MCG PO SCH (19:40)
[2023-01-30] MEDS: BUPROPION 300 MG PO SCH (19:41)
[2023-01-30] MEDS: Menthol 10%/Methyl Salicylate 15% 85 GM Tube TOP PRN (19:44)
[2023-01-31] MEDS: Albuterol/Ipratropium 3.0-0.5 MG/3 ML Neb Soln NEB SCH ×2 (07:12→19:34)
[2023-01-31] MEDS: Citalopram 20 MG Tab PO SCH (07:12)
[2023-01-31] MEDS: Furosemide 20 MG Tab PO SCH (07:13)
[2023-01-31] MEDS: Potassium Chloride 20 MEQ Tab.ER PO SCH ×2 (07:13→17:10)
[2023-01-31] MEDS: Polyethylene Glycol 3350 Powder 510 GM Bot PO SCH (07:14)
[2023-01-31] MEDS: Calcium Carbonate 750 MG Tab.Chew PO SCH (07:15)
[2023-01-31] MEDS: guaiFENesin 600 MG Tab.ER PO SCH ×2 (07:15→19:35)
[2023-01-31] MEDS: Acetaminophen 500 MG Tab PO SCH ×3 (07:15→19:36)
[2023-01-31] MEDS: Cyanocobalamin (Vitamin B12) 1,000 MCG Tab PO SCH (07:16)
[2023-01-31] MEDS: traMADol 50 MG Tab PO SCH (07:17)
[2023-01-31] MEDS: LEVOTHYROXINE 137 MCG PO SCH (19:35)
[2023-01-31] MEDS: BUPROPION 300 MG PO SCH (19:35)
[2023-02-01] MEDS: Albuterol/Ipratropium 3.0-0.5 MG/3 ML Neb Soln NEB SCH ×2 (07:20→19:43)
[2023-02-01] MEDS: Potassium Chloride 20 MEQ Tab.ER PO SCH ×2 (07:20→17:11)
[2023-02-01] MEDS: Citalopram 20 MG Tab PO SCH (07:20)
[2023-02-01] MEDS: Furosemide 20 MG Tab PO SCH (07:20)
[2023-02-01] MEDS: guaiFENesin 600 MG Tab.ER PO SCH ×2 (07:21→19:43)
[2023-02-01] MEDS: Acetaminophen 500 MG Tab PO SCH ×3 (07:21→19:44)
[2023-02-01] MEDS: Calcium Carbonate 750 MG Tab.Chew PO SCH (07:21)
[2023-02-01] MEDS: Cyanocobalamin (Vitamin B12) 1,000 MCG Tab PO SCH (07:22)
[2023-02-01] MEDS: Polyethylene Glycol 3350 Powder 510 GM Bot PO SCH (07:22)
[2023-02-01] MEDS: traMADol 50 MG Tab PO SCH (07:23)
[2023-02-01] MEDS: LEVOTHYROXINE 137 MCG PO SCH (19:43)
[2023-02-01] MEDS: BUPROPION 300 MG PO SCH (19:44)
[2023-02-02] MEDS: Potassium Chloride 20 MEQ Tab.ER PO SCH ×2 (07:28→17:45)
[2023-02-02] MEDS: Furosemide 20 MG Tab PO SCH (07:28)
[2023-02-02] MEDS: Citalopram 20 MG Tab PO SCH (07:29)
[2023-02-02] MEDS: Polyethylene Glycol 3350 Powder 510 GM Bot PO SCH (07:31)
[2023-02-02] MEDS: Albuterol/Ipratropium 3.0-0.5 MG/3 ML Neb Soln NEB SCH ×2 (07:31→20:39)
[2023-02-02] MEDS: Acetaminophen 500 MG Tab PO SCH ×3 (07:32→20:42)
[2023-02-02] MEDS: guaiFENesin 600 MG Tab.ER PO SCH ×2 (07:32→20:40)
[2023-02-02] MEDS: Calcium Carbonate 750 MG Tab.Chew PO SCH (07:34)
[2023-02-02] MEDS: traMADol 50 MG Tab PO SCH (07:36)
[2023-02-02] MEDS: Cyanocobalamin (Vitamin B12) 1,000 MCG Tab PO SCH (07:37)
[2023-02-02] MEDS: Menthol 10%/Methyl Salicylate 15% 85 GM Tube TOP PRN (12:39)
[2023-02-02] MEDS: LEVOTHYROXINE 137 MCG PO SCH (20:39)
[2023-02-02] MEDS: BUPROPION 300 MG PO SCH (20:40)
[2023-02-03] MEDS: Albuterol/Ipratropium 3.0-0.5 MG/3 ML Neb Soln NEB SCH ×2 (07:04→19:00)
[2023-02-03] MEDS: Citalopram 20 MG Tab PO SCH (07:05)
[2023-02-03] MEDS: Potassium Chloride 20 MEQ Tab.ER PO SCH ×2 (07:05→17:53)
[2023-02-03] MEDS: Furosemide 20 MG Tab PO SCH (07:05)
[2023-02-03] MEDS: Acetaminophen 500 MG Tab PO SCH ×3 (07:06→19:04)
[2023-02-03] MEDS: Calcium Carbonate 750 MG Tab.Chew PO SCH (07:06)
[2023-02-03] MEDS: guaiFENesin 600 MG Tab.ER PO SCH ×2 (07:06→19:04)
[2023-02-03] MEDS: Cyanocobalamin (Vitamin B12) 1,000 MCG Tab PO SCH (07:07)
[2023-02-03] MEDS: Polyethylene Glycol 3350 Powder 510 GM Bot PO SCH (07:08)
[2023-02-03] MEDS: traMADol 50 MG Tab PO SCH (07:08)
[2023-02-03] MEDS: BUPROPION 300 MG PO SCH (19:02)
[2023-02-03] MEDS: LEVOTHYROXINE 137 MCG PO SCH (19:02)
[2023-02-03] MEDS: Menthol 10%/Methyl Salicylate 15% 85 GM Tube TOP PRN (19:06)
[2023-02-04] MEDS: Citalopram 20 MG Tab PO SCH (07:21)
[2023-02-04] MEDS: Furosemide 20 MG Tab PO SCH (07:21)
[2023-02-04] MEDS: Potassium Chloride 20 MEQ Tab.ER PO SCH ×2 (07:21→17:02)
[2023-02-04] MEDS: Albuterol/Ipratropium 3.0-0.5 MG/3 ML Neb Soln NEB SCH ×2 (07:25→19:02)
[2023-02-04] MEDS: Polyethylene Glycol 3350 Powder 510 GM Bot PO SCH (07:26)
[2023-02-04] MEDS: guaiFENesin 600 MG Tab.ER PO SCH ×2 (07:26→19:03)
[2023-02-04] MEDS: Acetaminophen 500 MG Tab PO SCH ×3 (07:27→19:04)
[2023-02-04] MEDS: Calcium Carbonate 750 MG Tab.Chew PO SCH (07:27)
[2023-02-04] MEDS: Cyanocobalamin (Vitamin B12) 1,000 MCG Tab PO SCH (07:28)
[2023-02-04] MEDS: traMADol 50 MG Tab PO SCH (07:33)
[2023-02-04] MEDS: LEVOTHYROXINE 137 MCG PO SCH (19:01)
[2023-02-04] MEDS: BUPROPION 300 MG PO SCH (19:02)
[2023-02-04] MEDS: Menthol 10%/Methyl Salicylate 15% 85 GM Tube TOP PRN (19:05)
[2023-02-05] MEDS: traMADol 50 MG Tab PO SCH (07:46)
[2023-02-05] MEDS: Acetaminophen 500 MG Tab PO SCH ×3 (07:47→19:24)
[2023-02-05] MEDS: Albuterol/Ipratropium 3.0-0.5 MG/3 ML Neb Soln NEB SCH ×2 (07:48→19:24)
[2023-02-05] MEDS: Potassium Chloride 20 MEQ Tab.ER PO SCH ×2 (07:48→17:11)
[2023-02-05] MEDS: Citalopram 20 MG Tab PO SCH (07:48)
[2023-02-05] MEDS: Furosemide 20 MG Tab PO SCH (07:48)
[2023-02-05] MEDS: guaiFENesin 600 MG Tab.ER PO SCH ×2 (07:48→19:24)
[2023-02-05] MEDS: Calcium Carbonate 750 MG Tab.Chew PO SCH (07:49)
[2023-02-05] MEDS: Polyethylene Glycol 3350 Powder 510 GM Bot PO SCH (07:49)
[2023-02-05] MEDS: Cyanocobalamin (Vitamin B12) 1,000 MCG Tab PO SCH (07:49)
[2023-02-05] MEDS: LEVOTHYROXINE 137 MCG PO SCH (19:24)
[2023-02-05] MEDS: BUPROPION 300 MG PO SCH (19:24)
[2023-02-05] MEDS: Menthol 10%/Methyl Salicylate 15% 85 GM Tube TOP PRN (19:25)
[2023-02-06] MEDS: Citalopram 20 MG Tab PO SCH (07:08)
[2023-02-06] MEDS: Potassium Chloride 20 MEQ Tab.ER PO SCH ×2 (07:09→17:46)
[2023-02-06] MEDS: Albuterol/Ipratropium 3.0-0.5 MG/3 ML Neb Soln NEB SCH ×2 (07:09→19:05)
[2023-02-06] MEDS: Furosemide 20 MG Tab PO SCH (07:09)
[2023-02-06] MEDS: Polyethylene Glycol 3350 Powder 510 GM Bot PO SCH (07:10)
[2023-02-06] MEDS: guaiFENesin 600 MG Tab.ER PO SCH ×2 (07:11→19:06)
[2023-02-06] MEDS: Calcium Carbonate 750 MG Tab.Chew PO SCH (07:11)
[2023-02-06] MEDS: Acetaminophen 500 MG Tab PO SCH ×3 (07:12→19:07)
[2023-02-06] MEDS: traMADol 50 MG Tab PO SCH (07:13)
[2023-02-06] MEDS: Cyanocobalamin (Vitamin B12) 1,000 MCG Tab PO SCH (07:15)
[2023-02-06] MEDS: LEVOTHYROXINE 137 MCG PO SCH (19:06)
[2023-02-06] MEDS: BUPROPION 300 MG PO SCH (19:06)
[2023-02-06] MEDS: Menthol 10%/Methyl Salicylate 15% 85 GM Tube TOP PRN (19:08)
[2023-02-07] MEDS: Polyethylene Glycol 3350 Powder 510 GM Bot PO SCH (07:09)
[2023-02-07] MEDS: traMADol 50 MG Tab PO SCH (07:10)
[2023-02-07] MEDS: Acetaminophen 500 MG Tab PO SCH ×3 (07:11→19:00)
[2023-02-07] MEDS: guaiFENesin 600 MG Tab.ER PO SCH ×2 (07:11→19:00)
[2023-02-07] MEDS: Citalopram 20 MG Tab PO SCH (07:12)
[2023-02-07] MEDS: Potassium Chloride 20 MEQ Tab.ER PO SCH ×2 (07:12→17:02)
[2023-02-07] MEDS: Albuterol/Ipratropium 3.0-0.5 MG/3 ML Neb Soln NEB SCH ×2 (07:12→19:00)
[2023-02-07] MEDS: Calcium Carbonate 750 MG Tab.Chew PO SCH (07:12)
[2023-02-07] MEDS: Cyanocobalamin (Vitamin B12) 1,000 MCG Tab PO SCH (07:13)
[2023-02-07] MEDS: Furosemide 20 MG Tab PO SCH (07:13)
[2023-02-07] MEDS: BUPROPION 300 MG PO SCH (19:00)
[2023-02-07] MEDS: LEVOTHYROXINE 137 MCG PO SCH (19:00)
[2023-02-08] MEDS: traMADol 50 MG Tab PO SCH (06:59)
[2023-02-08] MEDS: Acetaminophen 500 MG Tab PO SCH ×3 (07:00→19:01)
[2023-02-08] MEDS: Calcium Carbonate 750 MG Tab.Chew PO SCH (07:00)
[2023-02-08] MEDS: Polyethylene Glycol 3350 Powder 510 GM Bot PO SCH (07:01)
[2023-02-08] MEDS: Cyanocobalamin (Vitamin B12) 1,000 MCG Tab PO SCH (07:01)
[2023-02-08] MEDS: Citalopram 20 MG Tab PO SCH (07:01)
[2023-02-08] MEDS: guaiFENesin 600 MG Tab.ER PO SCH ×2 (07:01→19:01)
[2023-02-08] MEDS: Potassium Chloride 20 MEQ Tab.ER PO SCH ×2 (07:02→17:25)
[2023-02-08] MEDS: Furosemide 20 MG Tab PO SCH (07:02)
[2023-02-08] MEDS: Albuterol/Ipratropium 3.0-0.5 MG/3 ML Neb Soln NEB SCH ×2 (07:02→19:00)
[2023-02-08] MEDS: LEVOTHYROXINE 137 MCG PO SCH (19:00)
[2023-02-08] MEDS: BUPROPION 300 MG PO SCH (19:01)
[2023-02-09] MEDS: traMADol 50 MG Tab PO PRN ×2 (05:09→11:13)
[2023-02-09] MEDS: Acetaminophen 500 MG Tab PO SCH ×3 (07:07→19:27)
[2023-02-09] MEDS: Polyethylene Glycol 3350 Powder 510 GM Bot PO SCH (07:08)
[2023-02-09] MEDS: guaiFENesin 600 MG Tab.ER PO SCH ×2 (07:09→19:29)
[2023-02-09] MEDS: Potassium Chloride 20 MEQ Tab.ER PO SCH ×2 (07:09→17:08)
[2023-02-09] MEDS: Citalopram 20 MG Tab PO SCH (07:09)
[2023-02-09] MEDS: Furosemide 20 MG Tab PO SCH (07:09)
[2023-02-09] MEDS: Albuterol/Ipratropium 3.0-0.5 MG/3 ML Neb Soln NEB SCH ×2 (07:09→19:27)
[2023-02-09] MEDS: Calcium Carbonate 750 MG Tab.Chew PO SCH (07:10)
[2023-02-09] MEDS: Cyanocobalamin (Vitamin B12) 1,000 MCG Tab PO SCH (07:11)
[2023-02-09] MEDS: traMADol 50 MG Tab PO SCH (07:11)
[2023-02-09] MEDS: LEVOTHYROXINE 137 MCG PO SCH (19:27)
[2023-02-09] MEDS: BUPROPION 300 MG PO SCH (19:27)
[2023-02-10] MEDS: traMADol 50 MG Tab PO PRN (02:38)
[2023-02-10] MEDS: Citalopram 20 MG Tab PO SCH (07:32)
[2023-02-10] MEDS: Potassium Chloride 20 MEQ Tab.ER PO SCH ×2 (07:33→17:43)
[2023-02-10] MEDS: Furosemide 20 MG Tab PO SCH (07:34)
[2023-02-10] MEDS: Polyethylene Glycol 3350 Powder 510 GM Bot PO SCH (07:35)
[2023-02-10] MEDS: guaiFENesin 600 MG Tab.ER PO SCH ×2 (07:36→19:01)
[2023-02-10] MEDS: Calcium Carbonate 750 MG Tab.Chew PO SCH (07:37)
[2023-02-10] MEDS: Acetaminophen 500 MG Tab PO SCH ×3 (07:38→19:02)
[2023-02-10] MEDS: Cyanocobalamin (Vitamin B12) 1,000 MCG Tab PO SCH (07:39)
[2023-02-10] MEDS: traMADol 50 MG Tab PO SCH (07:40)
[2023-02-10] MEDS: Albuterol/Ipratropium 3.0-0.5 MG/3 ML Neb Soln NEB SCH ×2 (07:43→19:00)
[2023-02-10] MEDS: BUPROPION 300 MG PO SCH (19:00)
[2023-02-10] MEDS: LEVOTHYROXINE 137 MCG PO SCH (19:01)
[2023-02-11] MEDS: Citalopram 20 MG Tab PO SCH (07:10)
[2023-02-11] MEDS: Furosemide 20 MG Tab PO SCH (07:11)
[2023-02-11] MEDS: Potassium Chloride 20 MEQ Tab.ER PO SCH ×2 (07:11→17:02)
[2023-02-11] MEDS: guaiFENesin 600 MG Tab.ER PO SCH ×2 (07:13→19:20)
[2023-02-11] MEDS: Polyethylene Glycol 3350 Powder 510 GM Bot PO SCH (07:13)
[2023-02-11] MEDS: Albuterol/Ipratropium 3.0-0.5 MG/3 ML Neb Soln NEB SCH ×2 (07:14→19:19)
[2023-02-11] MEDS: Calcium Carbonate 750 MG Tab.Chew PO SCH (07:14)
[2023-02-11] MEDS: Acetaminophen 500 MG Tab PO SCH ×3 (07:15→19:21)
[2023-02-11] MEDS: Cyanocobalamin (Vitamin B12) 1,000 MCG Tab PO SCH (07:17)
[2023-02-11] MEDS: traMADol 50 MG Tab PO SCH (07:18)
[2023-02-11] MEDS: BUPROPION 300 MG PO SCH (19:20)
[2023-02-11] MEDS: LEVOTHYROXINE 137 MCG PO SCH (19:20)
[2023-02-11] MEDS: Menthol 10%/Methyl Salicylate 15% 85 GM Tube TOP PRN (19:21)
[2023-02-12] MEDS: Albuterol/Ipratropium 3.0-0.5 MG/3 ML Neb Soln NEB SCH ×2 (07:11→19:21)
[2023-02-12] MEDS: Citalopram 20 MG Tab PO SCH (07:11)
[2023-02-12] MEDS: Potassium Chloride 20 MEQ Tab.ER PO SCH ×2 (07:12→17:02)
[2023-02-12] MEDS: Polyethylene Glycol 3350 Powder 510 GM Bot PO SCH (07:15)
[2023-02-12] MEDS: guaiFENesin 600 MG Tab.ER PO SCH ×2 (07:15→19:22)
[2023-02-12] MEDS: Calcium Carbonate 750 MG Tab.Chew PO SCH (07:16)
[2023-02-12] MEDS: Acetaminophen 500 MG Tab PO SCH ×3 (07:16→19:23)
[2023-02-12] MEDS: traMADol 50 MG Tab PO SCH (07:17)
[2023-02-12] MEDS: Furosemide 20 MG Tab PO SCH (07:19)
[2023-02-12] MEDS: Cyanocobalamin (Vitamin B12) 1,000 MCG Tab PO SCH (07:21)
[2023-02-12] MEDS: LEVOTHYROXINE 137 MCG PO SCH (19:21)
[2023-02-12] MEDS: BUPROPION 300 MG PO SCH (19:23)
[2023-02-13] MEDS: Potassium Chloride 20 MEQ Tab.ER PO SCH ×2 (07:00→17:05)
[2023-02-13] MEDS: Furosemide 20 MG Tab PO SCH (07:01)
[2023-02-13] MEDS: Albuterol/Ipratropium 3.0-0.5 MG/3 ML Neb Soln NEB SCH ×2 (07:01→19:38)
[2023-02-13] MEDS: Citalopram 20 MG Tab PO SCH (07:01)
[2023-02-13] MEDS: Calcium Carbonate 750 MG Tab.Chew PO SCH (07:02)
[2023-02-13] MEDS: guaiFENesin 600 MG Tab.ER PO SCH ×2 (07:02→19:39)
[2023-02-13] MEDS: Polyethylene Glycol 3350 Powder 510 GM Bot PO SCH (07:02)
[2023-02-13] MEDS: Acetaminophen 500 MG Tab PO SCH ×3 (07:03→19:39)
[2023-02-13] MEDS: Cyanocobalamin (Vitamin B12) 1,000 MCG Tab PO SCH (07:03)
[2023-02-13] MEDS: traMADol 50 MG Tab PO SCH (07:04)
[2023-02-13] MEDS: LEVOTHYROXINE 137 MCG PO SCH (19:38)
[2023-02-13] MEDS: BUPROPION 300 MG PO SCH (19:39)
[2023-02-14] MEDS: Potassium Chloride 20 MEQ Tab.ER PO SCH ×2 (07:31→17:09)
[2023-02-14] MEDS: Citalopram 20 MG Tab PO SCH (07:33)
[2023-02-14] MEDS: Albuterol/Ipratropium 3.0-0.5 MG/3 ML Neb Soln NEB SCH ×2 (07:33→19:27)
[2023-02-14] MEDS: Furosemide 20 MG Tab PO SCH (07:33)
[2023-02-14] MEDS: Polyethylene Glycol 3350 Powder 510 GM Bot PO SCH (07:35)
[2023-02-14] MEDS: guaiFENesin 600 MG Tab.ER PO SCH ×2 (07:35→19:28)
[2023-02-14] MEDS: Acetaminophen 500 MG Tab PO SCH ×3 (07:36→19:28)
[2023-02-14] MEDS: Calcium Carbonate 750 MG Tab.Chew PO SCH (07:36)
[2023-02-14] MEDS: traMADol 50 MG Tab PO SCH (07:37)
[2023-02-14] MEDS: Cyanocobalamin (Vitamin B12) 1,000 MCG Tab PO SCH (07:37)
[2023-02-14] MEDS: LEVOTHYROXINE 137 MCG PO SCH (19:27)
[2023-02-14] MEDS: BUPROPION 300 MG PO SCH (19:27)
[2023-02-14] MEDS: Menthol 10%/Methyl Salicylate 15% 85 GM Tube TOP PRN (19:29)
[2023-02-15] MEDS: Citalopram 20 MG Tab PO SCH (06:59)
[2023-02-15] MEDS: Furosemide 20 MG Tab PO SCH (07:00)
[2023-02-15] MEDS: Potassium Chloride 20 MEQ Tab.ER PO SCH ×2 (07:00→17:35)
[2023-02-15] MEDS: Albuterol/Ipratropium 3.0-0.5 MG/3 ML Neb Soln NEB SCH ×2 (07:01→19:21)
[2023-02-15] MEDS: Polyethylene Glycol 3350 Powder 510 GM Bot PO SCH (07:01)
[2023-02-15] MEDS: Acetaminophen 500 MG Tab PO SCH ×3 (07:02→19:22)
[2023-02-15] MEDS: Calcium Carbonate 750 MG Tab.Chew PO SCH (07:02)
[2023-02-15] MEDS: guaiFENesin 600 MG Tab.ER PO SCH ×2 (07:02→19:22)
[2023-02-15] MEDS: Cyanocobalamin (Vitamin B12) 1,000 MCG Tab PO SCH (07:03)
[2023-02-15] MEDS: traMADol 50 MG Tab PO SCH (07:04)
[2023-02-15] MEDS: LEVOTHYROXINE 137 MCG PO SCH (19:21)
[2023-02-15] MEDS: BUPROPION 300 MG PO SCH (19:21)
[2023-02-15] MEDS: Menthol 10%/Methyl Salicylate 15% 85 GM Tube TOP PRN (19:23)
[2023-02-16] MEDS: Citalopram 20 MG Tab PO SCH (07:25)
[2023-02-16] MEDS: Potassium Chloride 20 MEQ Tab.ER PO SCH ×2 (07:25→17:42)
[2023-02-16] MEDS: Albuterol/Ipratropium 3.0-0.5 MG/3 ML Neb Soln NEB SCH ×2 (07:26→19:22)
[2023-02-16] MEDS: Furosemide 20 MG Tab PO SCH (07:26)
[2023-02-16] MEDS: Polyethylene Glycol 3350 Powder 510 GM Bot PO SCH (07:26)
[2023-02-16] MEDS: Calcium Carbonate 750 MG Tab.Chew PO SCH (07:27)
[2023-02-16] MEDS: guaiFENesin 600 MG Tab.ER PO SCH ×2 (07:27→19:23)
[2023-02-16] MEDS: Acetaminophen 500 MG Tab PO SCH ×3 (07:27→19:23)
[2023-02-16] MEDS: Cyanocobalamin (Vitamin B12) 1,000 MCG Tab PO SCH (07:28)
[2023-02-16] MEDS: traMADol 50 MG Tab PO SCH (07:28)
[2023-02-16] MEDS: BUPROPION 300 MG PO SCH (19:22)
[2023-02-16] MEDS: LEVOTHYROXINE 137 MCG PO SCH (19:22)
[2023-02-17] MEDS: Albuterol/Ipratropium 3.0-0.5 MG/3 ML Neb Soln NEB SCH ×2 (07:23→19:06)
[2023-02-17] MEDS: traMADol 50 MG Tab PO SCH (07:24)
[2023-02-17] MEDS: Acetaminophen 500 MG Tab PO SCH ×3 (07:24→19:05)
[2023-02-17] MEDS: Calcium Carbonate 750 MG Tab.Chew PO SCH (07:25)
[2023-02-17] MEDS: Cyanocobalamin (Vitamin B12) 1,000 MCG Tab PO SCH (07:25)
[2023-02-17] MEDS: Citalopram 20 MG Tab PO SCH (07:25)
[2023-02-17] MEDS: Furosemide 20 MG Tab PO SCH (07:26)
[2023-02-17] MEDS: Potassium Chloride 20 MEQ Tab.ER PO SCH ×2 (07:26→17:29)
[2023-02-17] MEDS: guaiFENesin 600 MG Tab.ER PO SCH ×2 (07:27→19:04)
[2023-02-17] MEDS: Polyethylene Glycol 3350 Powder 510 GM Bot PO SCH (07:27)
[2023-02-17] MEDS: LEVOTHYROXINE 137 MCG PO SCH (19:04)
[2023-02-17] MEDS: BUPROPION 300 MG PO SCH (19:04)
[2023-02-18] MEDS: Polyethylene Glycol 3350 Powder 510 GM Bot PO SCH (07:54)
[2023-02-18] MEDS: traMADol 50 MG Tab PO SCH (07:54)
[2023-02-18] MEDS: Cyanocobalamin (Vitamin B12) 1,000 MCG Tab PO SCH (07:55)
[2023-02-18] MEDS: Acetaminophen 500 MG Tab PO SCH ×3 (07:55→19:21)
[2023-02-18] MEDS: Potassium Chloride 20 MEQ Tab.ER PO SCH ×2 (07:56→17:29)
[2023-02-18] MEDS: Albuterol/Ipratropium 3.0-0.5 MG/3 ML Neb Soln NEB SCH ×2 (07:56→19:19)
[2023-02-18] MEDS: Calcium Carbonate 750 MG Tab.Chew PO SCH (07:56)
[2023-02-18] MEDS: Citalopram 20 MG Tab PO SCH (07:56)
[2023-02-18] MEDS: guaiFENesin 600 MG Tab.ER PO SCH ×2 (07:56→19:20)
[2023-02-18] MEDS: Furosemide 20 MG Tab PO SCH (07:57)
[2023-02-18] MEDS: BUPROPION 300 MG PO SCH (19:19)
[2023-02-18] MEDS: LEVOTHYROXINE 137 MCG PO SCH (19:20)
[2023-02-19] MEDS: Citalopram 20 MG Tab PO SCH (07:23)
[2023-02-19] MEDS: Albuterol/Ipratropium 3.0-0.5 MG/3 ML Neb Soln NEB SCH ×2 (07:24→19:43)
[2023-02-19] MEDS: Furosemide 20 MG Tab PO SCH (07:24)
[2023-02-19] MEDS: Potassium Chloride 20 MEQ Tab.ER PO SCH ×2 (07:24→17:35)
[2023-02-19] MEDS: Polyethylene Glycol 3350 Powder 510 GM Bot PO SCH (07:31)
[2023-02-19] MEDS: guaiFENesin 600 MG Tab.ER PO SCH ×2 (07:32→19:45)
[2023-02-19] MEDS: Calcium Carbonate 750 MG Tab.Chew PO SCH (07:33)
[2023-02-19] MEDS: Acetaminophen 500 MG Tab PO SCH ×3 (07:33→19:45)
[2023-02-19] MEDS: Cyanocobalamin (Vitamin B12) 1,000 MCG Tab PO SCH (07:34)
[2023-02-19] MEDS: traMADol 50 MG Tab PO SCH (07:35)
[2023-02-19] MEDS: BUPROPION 300 MG PO SCH (19:44)
[2023-02-19] MEDS: LEVOTHYROXINE 137 MCG PO SCH (19:44)
[2023-02-19] MEDS: Menthol 10%/Methyl Salicylate 15% 85 GM Tube TOP PRN (19:46)
[2023-02-20] MEDS: Polyethylene Glycol 3350 Powder 510 GM Bot PO SCH (07:14)
[2023-02-20] MEDS: traMADol 50 MG Tab PO SCH (07:15)
[2023-02-20] MEDS: Cyanocobalamin (Vitamin B12) 1,000 MCG Tab PO SCH (07:16)
[2023-02-20] MEDS: Acetaminophen 500 MG Tab PO SCH ×3 (07:16→19:22)
[2023-02-20] MEDS: guaiFENesin 600 MG Tab.ER PO SCH ×2 (07:17→19:21)
[2023-02-20] MEDS: Citalopram 20 MG Tab PO SCH (07:17)
[2023-02-20] MEDS: Calcium Carbonate 750 MG Tab.Chew PO SCH (07:17)
[2023-02-20] MEDS: Potassium Chloride 20 MEQ Tab.ER PO SCH ×2 (07:18→17:37)
[2023-02-20] MEDS: Albuterol/Ipratropium 3.0-0.5 MG/3 ML Neb Soln NEB SCH ×2 (07:18→19:19)
[2023-02-20] MEDS: Furosemide 20 MG Tab PO SCH (07:18)
[2023-02-20] MEDS: BUPROPION 300 MG PO SCH (19:20)
[2023-02-20] MEDS: LEVOTHYROXINE 137 MCG PO SCH (19:20)
[2023-02-20] MEDS: Menthol 10%/Methyl Salicylate 15% 85 GM Tube TOP PRN (19:24)
[2023-02-21] MEDS: Furosemide 20 MG Tab PO SCH (08:22)
[2023-02-21] MEDS: Potassium Chloride 20 MEQ Tab.ER PO SCH ×2 (08:22→17:51)
[2023-02-21] MEDS: Citalopram 20 MG Tab PO SCH (08:23)
[2023-02-21] MEDS: Polyethylene Glycol 3350 Powder 510 GM Bot PO SCH (08:25)
[2023-02-21] MEDS: Calcium Carbonate 750 MG Tab.Chew PO SCH (08:26)
[2023-02-21] MEDS: guaiFENesin 600 MG Tab.ER PO SCH ×2 (08:26→20:13)
[2023-02-21] MEDS: Acetaminophen 500 MG Tab PO SCH ×3 (08:27→20:14)
[2023-02-21] MEDS: traMADol 50 MG Tab PO SCH (08:28)
[2023-02-21] MEDS: Cyanocobalamin (Vitamin B12) 1,000 MCG Tab PO SCH (08:28)
[2023-02-21] MEDS: Albuterol/Ipratropium 3.0-0.5 MG/3 ML Neb Soln NEB SCH ×2 (08:29→20:13)
[2023-02-21] MEDS: LEVOTHYROXINE 137 MCG PO SCH (20:13)
[2023-02-21] MEDS: BUPROPION 300 MG PO SCH (20:14)
[2023-02-22] MEDS: Citalopram 20 MG Tab PO SCH (07:14)
[2023-02-22] MEDS: Potassium Chloride 20 MEQ Tab.ER PO SCH ×2 (07:15→17:04)
[2023-02-22] MEDS: Furosemide 20 MG Tab PO SCH (07:15)
[2023-02-22] MEDS: Albuterol/Ipratropium 3.0-0.5 MG/3 ML Neb Soln NEB SCH ×2 (07:16→20:03)
[2023-02-22] MEDS: guaiFENesin 600 MG Tab.ER PO SCH ×2 (07:17→20:04)
[2023-02-22] MEDS: Polyethylene Glycol 3350 Powder 510 GM Bot PO SCH (07:17)
[2023-02-22] MEDS: Acetaminophen 500 MG Tab PO SCH ×3 (07:18→20:05)
[2023-02-22] MEDS: Calcium Carbonate 750 MG Tab.Chew PO SCH (07:18)
[2023-02-22] MEDS: traMADol 50 MG Tab PO SCH (07:20)
[2023-02-22] MEDS: Cyanocobalamin (Vitamin B12) 1,000 MCG Tab PO SCH (07:20)
[2023-02-22] MEDS: LEVOTHYROXINE 137 MCG PO SCH (20:03)
[2023-02-22] MEDS: BUPROPION 300 MG PO SCH (20:04)
[2023-02-23] MEDS: Citalopram 20 MG Tab PO SCH (07:36)
[2023-02-23] MEDS: Furosemide 20 MG Tab PO SCH (07:37)
[2023-02-23] MEDS: Potassium Chloride 20 MEQ Tab.ER PO SCH ×2 (07:37→17:30)
[2023-02-23] MEDS: Polyethylene Glycol 3350 Powder 510 GM Bot PO SCH (07:39)
[2023-02-23] MEDS: guaiFENesin 600 MG Tab.ER PO SCH ×2 (07:39→20:01)
[2023-02-23] MEDS: Calcium Carbonate 750 MG Tab.Chew PO SCH (07:42)
[2023-02-23] MEDS: Acetaminophen 500 MG Tab PO SCH ×3 (07:48→20:02)
[2023-02-23] MEDS: Cyanocobalamin (Vitamin B12) 1,000 MCG Tab PO SCH (07:49)
[2023-02-23] MEDS: traMADol 50 MG Tab PO SCH (07:50)
[2023-02-23] MEDS: Albuterol/Ipratropium 3.0-0.5 MG/3 ML Neb Soln NEB SCH ×2 (07:51→19:58)
[2023-02-23] MEDS: LEVOTHYROXINE 137 MCG PO SCH (20:00)
[2023-02-23] MEDS: BUPROPION 300 MG PO SCH (20:02)
[2023-02-24] MEDS: Calcium Carbonate 750 MG Tab.Chew PO SCH (07:15)
[2023-02-24] MEDS: Polyethylene Glycol 3350 Powder 510 GM Bot PO SCH (07:15)
[2023-02-24] MEDS: Cyanocobalamin (Vitamin B12) 1,000 MCG Tab PO SCH (07:15)
[2023-02-24] MEDS: Acetaminophen 500 MG Tab PO SCH ×3 (07:16→19:23)
[2023-02-24] MEDS: traMADol 50 MG Tab PO SCH (07:16)
[2023-02-24] MEDS: Albuterol/Ipratropium 3.0-0.5 MG/3 ML Neb Soln NEB SCH ×2 (07:17→19:20)
[2023-02-24] MEDS: Citalopram 20 MG Tab PO SCH (07:17)
[2023-02-24] MEDS: Potassium Chloride 20 MEQ Tab.ER PO SCH ×2 (07:17→17:09)
[2023-02-24] MEDS: Furosemide 20 MG Tab PO SCH (07:18)
[2023-02-24] MEDS: guaiFENesin 600 MG Tab.ER PO SCH ×2 (07:18→19:22)
[2023-02-24] MEDS: LEVOTHYROXINE 137 MCG PO SCH (19:22)
[2023-02-24] MEDS: BUPROPION 300 MG PO SCH (19:22)
[2023-02-24] MEDS: Menthol 10%/Methyl Salicylate 15% 85 GM Tube TOP PRN (19:24)
[2023-02-25] MEDS: Citalopram 20 MG Tab PO SCH (08:07)
[2023-02-25] MEDS: Furosemide 20 MG Tab PO SCH (08:07)
[2023-02-25] MEDS: Potassium Chloride 20 MEQ Tab.ER PO SCH ×2 (08:07→17:32)
[2023-02-25] MEDS: Albuterol/Ipratropium 3.0-0.5 MG/3 ML Neb Soln NEB SCH ×2 (08:08→19:08)
[2023-02-25] MEDS: Polyethylene Glycol 3350 Powder 510 GM Bot PO SCH (08:09)
[2023-02-25] MEDS: Calcium Carbonate 750 MG Tab.Chew PO SCH (08:10)
[2023-02-25] MEDS: guaiFENesin 600 MG Tab.ER PO SCH ×2 (08:10→19:10)
[2023-02-25] MEDS: Acetaminophen 500 MG Tab PO SCH ×3 (08:11→19:10)
[2023-02-25] MEDS: Cyanocobalamin (Vitamin B12) 1,000 MCG Tab PO SCH (08:12)
[2023-02-25] MEDS: traMADol 50 MG Tab PO SCH (08:13)
[2023-02-25] MEDS: LEVOTHYROXINE 137 MCG PO SCH (19:09)
[2023-02-25] MEDS: BUPROPION 300 MG PO SCH (19:09)
[2023-02-25] MEDS: Menthol 10%/Methyl Salicylate 15% 85 GM Tube TOP PRN (19:11)
[2023-02-26] MEDS: Polyethylene Glycol 3350 Powder 510 GM Bot PO SCH (07:52)
[2023-02-26] MEDS: Furosemide 20 MG Tab PO SCH (07:52)
[2023-02-26] MEDS: Citalopram 20 MG Tab PO SCH (07:52)
[2023-02-26] MEDS: Albuterol/Ipratropium 3.0-0.5 MG/3 ML Neb Soln NEB SCH ×2 (07:52→19:21)
[2023-02-26] MEDS: Potassium Chloride 20 MEQ Tab.ER PO SCH ×2 (07:52→17:29)
[2023-02-26] MEDS: Acetaminophen 500 MG Tab PO SCH ×3 (07:53→19:23)
[2023-02-26] MEDS: Calcium Carbonate 750 MG Tab.Chew PO SCH (07:53)
[2023-02-26] MEDS: Cyanocobalamin (Vitamin B12) 1,000 MCG Tab PO SCH (07:53)
[2023-02-26] MEDS: guaiFENesin 600 MG Tab.ER PO SCH ×2 (07:53→19:22)
[2023-02-26] MEDS: traMADol 50 MG Tab PO SCH (07:54)
[2023-02-26] MEDS: Menthol 10%/Methyl Salicylate 15% 85 GM Tube TOP PRN ×2 (11:56→19:23)
[2023-02-26] MEDS: BUPROPION 300 MG PO SCH (19:22)
[2023-02-26] MEDS: LEVOTHYROXINE 137 MCG PO SCH (19:22)
[2023-02-27] MEDS: Potassium Chloride 20 MEQ Tab.ER PO SCH ×2 (07:47→17:26)
[2023-02-27] MEDS: Furosemide 20 MG Tab PO SCH (07:47)
[2023-02-27] MEDS: Citalopram 20 MG Tab PO SCH (07:48)
[2023-02-27] MEDS: Albuterol/Ipratropium 3.0-0.5 MG/3 ML Neb Soln NEB SCH ×2 (07:48→19:40)
[2023-02-27] MEDS: Polyethylene Glycol 3350 Powder 510 GM Bot PO SCH (07:49)
[2023-02-27] MEDS: guaiFENesin 600 MG Tab.ER PO SCH ×2 (07:49→19:41)
[2023-02-27] MEDS: Calcium Carbonate 750 MG Tab.Chew PO SCH (07:50)
[2023-02-27] MEDS: Cyanocobalamin (Vitamin B12) 1,000 MCG Tab PO SCH (07:52)
[2023-02-27] MEDS: Acetaminophen 500 MG Tab PO SCH ×3 (07:52→19:41)
[2023-02-27] MEDS: traMADol 50 MG Tab PO SCH (07:53)
[2023-02-27] MEDS: LEVOTHYROXINE 137 MCG PO SCH (19:40)
[2023-02-27] MEDS: BUPROPION 300 MG PO SCH (19:41)
[2023-02-28] MEDS: traMADol 50 MG Tab PO SCH (07:18)
[2023-02-28] MEDS: Acetaminophen 500 MG Tab PO SCH ×3 (07:19→19:19)
[2023-02-28] MEDS: Calcium Carbonate 750 MG Tab.Chew PO SCH (07:20)
[2023-02-28] MEDS: Cyanocobalamin (Vitamin B12) 1,000 MCG Tab PO SCH (07:20)
[2023-02-28] MEDS: guaiFENesin 600 MG Tab.ER PO SCH ×2 (07:21→19:18)
[2023-02-28] MEDS: Polyethylene Glycol 3350 Powder 510 GM Bot PO SCH (07:21)
[2023-02-28] MEDS: Albuterol/Ipratropium 3.0-0.5 MG/3 ML Neb Soln NEB SCH ×2 (07:22→19:17)
[2023-02-28] MEDS: Potassium Chloride 20 MEQ Tab.ER PO SCH ×2 (07:22→17:30)
[2023-02-28] MEDS: Citalopram 20 MG Tab PO SCH (07:22)
[2023-02-28] MEDS: Furosemide 20 MG Tab PO SCH (07:22)
[2023-02-28] MEDS: BUPROPION 300 MG PO SCH (19:17)
[2023-02-28] MEDS: LEVOTHYROXINE 137 MCG PO SCH (19:22)
[2023-02-28] MEDS: Menthol 10%/Methyl Salicylate 15% 85 GM Tube TOP PRN (20:43)
[2023-03-01] MEDS: Albuterol/Ipratropium 3.0-0.5 MG/3 ML Neb Soln NEB SCH ×2 (07:01→19:15)
[2023-03-01] MEDS: Polyethylene Glycol 3350 Powder 510 GM Bot PO SCH (07:02)
[2023-03-01] MEDS: traMADol 50 MG Tab PO SCH (07:03)
[2023-03-01] MEDS: Acetaminophen 500 MG Tab PO SCH ×3 (07:03→19:15)
[2023-03-01] MEDS: Calcium Carbonate 750 MG Tab.Chew PO SCH (07:04)
[2023-03-01] MEDS: Cyanocobalamin (Vitamin B12) 1,000 MCG Tab PO SCH (07:04)
[2023-03-01] MEDS: Citalopram 20 MG Tab PO SCH (07:05)
[2023-03-01] MEDS: Furosemide 20 MG Tab PO SCH (07:05)
[2023-03-01] MEDS: Potassium Chloride 20 MEQ Tab.ER PO SCH ×2 (07:05→17:03)
[2023-03-01] MEDS: guaiFENesin 600 MG Tab.ER PO SCH ×2 (07:06→19:14)
[2023-03-01] MEDS: BUPROPION 300 MG PO SCH (19:14)
[2023-03-01] MEDS: LEVOTHYROXINE 137 MCG PO SCH (19:14)
[2023-03-02] MEDS: Citalopram 20 MG Tab PO SCH (07:23)
[2023-03-02] MEDS: Furosemide 20 MG Tab PO SCH (07:23)
[2023-03-02] MEDS: Potassium Chloride 20 MEQ Tab.ER PO SCH ×2 (07:23→17:10)
[2023-03-02] MEDS: Albuterol/Ipratropium 3.0-0.5 MG/3 ML Neb Soln NEB SCH ×2 (07:24→19:30)
[2023-03-02] MEDS: Polyethylene Glycol 3350 Powder 510 GM Bot PO SCH (07:24)
[2023-03-02] MEDS: guaiFENesin 600 MG Tab.ER PO SCH ×2 (07:26→19:30)
[2023-03-02] MEDS: Acetaminophen 500 MG Tab PO SCH ×3 (07:27→19:31)
[2023-03-02] MEDS: Calcium Carbonate 750 MG Tab.Chew PO SCH (07:27)
[2023-03-02] MEDS: traMADol 50 MG Tab PO SCH (07:28)
[2023-03-02] MEDS: Cyanocobalamin (Vitamin B12) 1,000 MCG Tab PO SCH (07:28)
[2023-03-02] MEDS: guaiFENesin/Dextromethorphan 100-10 MG/5 ML Soln 10 ML Cup PO PRN (10:09)
[2023-03-02] MEDS: BUPROPION 300 MG PO SCH (19:29)
[2023-03-02] MEDS: LEVOTHYROXINE 137 MCG PO SCH (19:29)
[2023-03-03] MEDS: Citalopram 20 MG Tab PO SCH (07:19)
[2023-03-03] MEDS: Albuterol/Ipratropium 3.0-0.5 MG/3 ML Neb Soln NEB SCH ×2 (07:19→19:17)
[2023-03-03] MEDS: Potassium Chloride 20 MEQ Tab.ER PO SCH ×2 (07:19→17:15)
[2023-03-03] MEDS: Acetaminophen 500 MG Tab PO SCH ×3 (07:20→19:18)
[2023-03-03] MEDS: Polyethylene Glycol 3350 Powder 510 GM Bot PO SCH (07:20)
[2023-03-03] MEDS: Cyanocobalamin (Vitamin B12) 1,000 MCG Tab PO SCH (07:20)
[2023-03-03] MEDS: Furosemide 20 MG Tab PO SCH (07:20)
[2023-03-03] MEDS: guaiFENesin 600 MG Tab.ER PO SCH ×2 (07:21→19:18)
[2023-03-03] MEDS: Calcium Carbonate 750 MG Tab.Chew PO SCH (07:21)
[2023-03-03] MEDS: traMADol 50 MG Tab PO SCH (07:22)
[2023-03-03] MEDS: BUPROPION 300 MG PO SCH (19:18)
[2023-03-03] MEDS: LEVOTHYROXINE 137 MCG PO SCH (19:18)
[2023-03-03] MEDS: Menthol 10%/Methyl Salicylate 15% 85 GM Tube TOP PRN (19:20)
[2023-03-04] MEDS: traMADol 50 MG Tab PO SCH (08:03)
[2023-03-04] MEDS: Albuterol/Ipratropium 3.0-0.5 MG/3 ML Neb Soln NEB SCH ×2 (08:04→19:52)
[2023-03-04] MEDS: Potassium Chloride 20 MEQ Tab.ER PO SCH ×2 (08:04→17:32)
[2023-03-04] MEDS: Polyethylene Glycol 3350 Powder 510 GM Bot PO SCH (08:04)
[2023-03-04] MEDS: Furosemide 20 MG Tab PO SCH (08:04)
[2023-03-04] MEDS: Calcium Carbonate 750 MG Tab.Chew PO SCH (08:04)
[2023-03-04] MEDS: Citalopram 20 MG Tab PO SCH (08:04)
[2023-03-04] MEDS: guaiFENesin 600 MG Tab.ER PO SCH ×2 (08:04→19:53)
[2023-03-04] MEDS: Acetaminophen 500 MG Tab PO SCH ×3 (08:05→19:53)
[2023-03-04] MEDS: Cyanocobalamin (Vitamin B12) 1,000 MCG Tab PO SCH (08:05)
[2023-03-04] MEDS: BUPROPION 300 MG PO SCH (19:53)
[2023-03-04] MEDS: LEVOTHYROXINE 137 MCG PO SCH (19:53)
[2023-03-05] MEDS: Citalopram 20 MG Tab PO SCH (08:27)
[2023-03-05] MEDS: Furosemide 20 MG Tab PO SCH (08:27)
[2023-03-05] MEDS: Potassium Chloride 20 MEQ Tab.ER PO SCH ×2 (08:27→17:24)
[2023-03-05] MEDS: guaiFENesin 600 MG Tab.ER PO SCH ×2 (08:28→19:42)
[2023-03-05] MEDS: Albuterol/Ipratropium 3.0-0.5 MG/3 ML Neb Soln NEB SCH ×2 (08:28→19:41)
[2023-03-05] MEDS: Acetaminophen 500 MG Tab PO SCH ×3 (08:29→19:43)
[2023-03-05] MEDS: Calcium Carbonate 750 MG Tab.Chew PO SCH (08:29)
[2023-03-05] MEDS: traMADol 50 MG Tab PO SCH (08:30)
[2023-03-05] MEDS: Cyanocobalamin (Vitamin B12) 1,000 MCG Tab PO SCH (08:30)
[2023-03-05] MEDS: Polyethylene Glycol 3350 Powder 510 GM Bot PO SCH (08:31)
[2023-03-05] MEDS: LEVOTHYROXINE 137 MCG PO SCH (19:41)
[2023-03-05] MEDS: BUPROPION 300 MG PO SCH (19:43)
[2023-03-06] MEDS: Furosemide 20 MG Tab PO SCH (07:42)
[2023-03-06] MEDS: Potassium Chloride 20 MEQ Tab.ER PO SCH ×2 (07:42→17:39)
[2023-03-06] MEDS: Citalopram 20 MG Tab PO SCH (07:43)
[2023-03-06] MEDS: Albuterol/Ipratropium 3.0-0.5 MG/3 ML Neb Soln NEB SCH ×2 (07:43→19:50)
[2023-03-06] MEDS: guaiFENesin 600 MG Tab.ER PO SCH ×2 (07:43→19:50)
[2023-03-06] MEDS: Calcium Carbonate 750 MG Tab.Chew PO SCH (07:45)
[2023-03-06] MEDS: Acetaminophen 500 MG Tab PO SCH ×3 (07:46→19:51)
[2023-03-06] MEDS: Cyanocobalamin (Vitamin B12) 1,000 MCG Tab PO SCH (07:46)
[2023-03-06] MEDS: traMADol 50 MG Tab PO SCH (07:47)
[2023-03-06] MEDS: Polyethylene Glycol 3350 Powder 510 GM Bot PO SCH (07:47)
[2023-03-06] MEDS: LEVOTHYROXINE 137 MCG PO SCH (19:50)
[2023-03-06] MEDS: BUPROPION 300 MG PO SCH (19:50)
[2023-03-07] MEDS: Albuterol/Ipratropium 3.0-0.5 MG/3 ML Neb Soln NEB SCH ×2 (07:02→19:25)
[2023-03-07] MEDS: Potassium Chloride 20 MEQ Tab.ER PO SCH ×2 (07:03→17:12)
[2023-03-07] MEDS: Furosemide 20 MG Tab PO SCH (07:03)
[2023-03-07] MEDS: Citalopram 20 MG Tab PO SCH (07:03)
[2023-03-07] MEDS: Acetaminophen 500 MG Tab PO SCH ×3 (07:04→19:26)
[2023-03-07] MEDS: Cyanocobalamin (Vitamin B12) 1,000 MCG Tab PO SCH (07:04)
[2023-03-07] MEDS: Polyethylene Glycol 3350 Powder 510 GM Bot PO SCH (07:04)
[2023-03-07] MEDS: guaiFENesin 600 MG Tab.ER PO SCH ×2 (07:04→19:26)
[2023-03-07] MEDS: Calcium Carbonate 750 MG Tab.Chew PO SCH (07:04)
[2023-03-07] MEDS: traMADol 50 MG Tab PO SCH (07:05)
[2023-03-07] MEDS: BUPROPION 300 MG PO SCH (19:26)
[2023-03-07] MEDS: LEVOTHYROXINE 137 MCG PO SCH (19:26)
[2023-03-07] MEDS: Menthol 10%/Methyl Salicylate 15% 85 GM Tube TOP PRN (19:27)
[2023-03-08] MEDS: Potassium Chloride 20 MEQ Tab.ER PO SCH ×2 (07:08→17:21)
[2023-03-08] MEDS: Citalopram 20 MG Tab PO SCH (07:08)
[2023-03-08] MEDS: Furosemide 20 MG Tab PO SCH (07:08)
[2023-03-08] MEDS: Albuterol/Ipratropium 3.0-0.5 MG/3 ML Neb Soln NEB SCH ×2 (07:10→19:10)
[2023-03-08] MEDS: Polyethylene Glycol 3350 Powder 510 GM Bot PO SCH (07:10)
[2023-03-08] MEDS: guaiFENesin 600 MG Tab.ER PO SCH ×2 (07:11→19:11)
[2023-03-08] MEDS: Calcium Carbonate 750 MG Tab.Chew PO SCH (07:11)
[2023-03-08] MEDS: Acetaminophen 500 MG Tab PO SCH ×3 (07:12→19:11)
[2023-03-08] MEDS: traMADol 50 MG Tab PO SCH (07:13)
[2023-03-08] MEDS: Cyanocobalamin (Vitamin B12) 1,000 MCG Tab PO SCH (07:13)
[2023-03-08] MEDS: LEVOTHYROXINE 137 MCG PO SCH (19:10)
[2023-03-08] MEDS: BUPROPION 300 MG PO SCH (19:11)
[2023-03-08] MEDS: Menthol 10%/Methyl Salicylate 15% 85 GM Tube TOP PRN (19:12)
[2023-03-09] MEDS: Potassium Chloride 20 MEQ Tab.ER PO SCH ×2 (08:34→17:29)
[2023-03-09] MEDS: Furosemide 20 MG Tab PO SCH (08:34)
[2023-03-09] MEDS: Albuterol/Ipratropium 3.0-0.5 MG/3 ML Neb Soln NEB SCH ×2 (08:35→19:23)
[2023-03-09] MEDS: Citalopram 20 MG Tab PO SCH (08:35)
[2023-03-09] MEDS: Polyethylene Glycol 3350 Powder 510 GM Bot PO SCH (08:36)
[2023-03-09] MEDS: Calcium Carbonate 750 MG Tab.Chew PO SCH (08:37)
[2023-03-09] MEDS: guaiFENesin 600 MG Tab.ER PO SCH ×2 (08:37→19:24)
[2023-03-09] MEDS: Acetaminophen 500 MG Tab PO SCH ×3 (08:38→19:24)
[2023-03-09] MEDS: Cyanocobalamin (Vitamin B12) 1,000 MCG Tab PO SCH (08:39)
[2023-03-09] MEDS: traMADol 50 MG Tab PO SCH (08:40)
[2023-03-09] MEDS: LEVOTHYROXINE 137 MCG PO SCH (19:23)
[2023-03-09] MEDS: BUPROPION 300 MG PO SCH (19:24)
[2023-03-09] MEDS: Menthol 10%/Methyl Salicylate 15% 85 GM Tube TOP PRN (19:25)
[2023-03-10] MEDS: Polyethylene Glycol 3350 Powder 510 GM Bot PO SCH (07:19)
[2023-03-10] MEDS: Calcium Carbonate 750 MG Tab.Chew PO SCH (07:19)
[2023-03-10] MEDS: Cyanocobalamin (Vitamin B12) 1,000 MCG Tab PO SCH (07:20)
[2023-03-10] MEDS: Acetaminophen 500 MG Tab PO SCH ×3 (07:20→19:09)
[2023-03-10] MEDS: traMADol 50 MG Tab PO SCH (07:21)
[2023-03-10] MEDS: Potassium Chloride 20 MEQ Tab.ER PO SCH ×2 (07:22→17:01)
[2023-03-10] MEDS: Citalopram 20 MG Tab PO SCH (07:22)
[2023-03-10] MEDS: Furosemide 20 MG Tab PO SCH (07:22)
[2023-03-10] MEDS: Albuterol/Ipratropium 3.0-0.5 MG/3 ML Neb Soln NEB SCH ×2 (07:22→19:08)
[2023-03-10] MEDS: guaiFENesin 600 MG Tab.ER PO SCH ×2 (07:23→19:09)
[2023-03-10] MEDS: BUPROPION 300 MG PO SCH (19:09)
[2023-03-10] MEDS: LEVOTHYROXINE 137 MCG PO SCH (19:09)
[2023-03-10] MEDS: Menthol 10%/Methyl Salicylate 15% 85 GM Tube TOP PRN (19:10)
[2023-03-11] MEDS: traMADol 50 MG Tab PO SCH (07:36)
[2023-03-11] MEDS: Polyethylene Glycol 3350 Powder 510 GM Bot PO SCH (07:36)
[2023-03-11] MEDS: guaiFENesin 600 MG Tab.ER PO SCH ×2 (07:37→19:00)
[2023-03-11] MEDS: Acetaminophen 500 MG Tab PO SCH ×3 (07:37→19:00)
[2023-03-11] MEDS: Citalopram 20 MG Tab PO SCH (07:38)
[2023-03-11] MEDS: Albuterol/Ipratropium 3.0-0.5 MG/3 ML Neb Soln NEB SCH ×2 (07:38→19:00)
[2023-03-11] MEDS: Cyanocobalamin (Vitamin B12) 1,000 MCG Tab PO SCH (07:38)
[2023-03-11] MEDS: Potassium Chloride 20 MEQ Tab.ER PO SCH ×2 (07:38→17:23)
[2023-03-11] MEDS: Furosemide 20 MG Tab PO SCH (07:39)
[2023-03-11] MEDS: Calcium Carbonate 750 MG Tab.Chew PO SCH (07:39)
[2023-03-11] MEDS: BUPROPION 300 MG PO SCH (19:01)
[2023-03-11] MEDS: Menthol 10%/Methyl Salicylate 15% 85 GM Tube TOP PRN (19:01)
[2023-03-11] MEDS: LEVOTHYROXINE 137 MCG PO SCH (19:01)
[2023-03-12] MEDS: traMADol 50 MG Tab PO SCH (07:20)
[2023-03-12] MEDS: Cyanocobalamin (Vitamin B12) 1,000 MCG Tab PO SCH (07:21)
[2023-03-12] MEDS: Calcium Carbonate 750 MG Tab.Chew PO SCH (07:21)
[2023-03-12] MEDS: Acetaminophen 500 MG Tab PO SCH ×3 (07:21→19:07)
[2023-03-12] MEDS: guaiFENesin 600 MG Tab.ER PO SCH ×2 (07:21→19:07)
[2023-03-12] MEDS: Citalopram 20 MG Tab PO SCH (07:22)
[2023-03-12] MEDS: Polyethylene Glycol 3350 Powder 510 GM Bot PO SCH (07:22)
[2023-03-12] MEDS: Potassium Chloride 20 MEQ Tab.ER PO SCH ×2 (07:23→17:08)
[2023-03-12] MEDS: Furosemide 20 MG Tab PO SCH (07:23)
[2023-03-12] MEDS: Albuterol/Ipratropium 3.0-0.5 MG/3 ML Neb Soln NEB SCH ×2 (07:23→19:06)
[2023-03-12] MEDS: LEVOTHYROXINE 137 MCG PO SCH (19:06)
[2023-03-12] MEDS: BUPROPION 300 MG PO SCH (19:07)
[2023-03-12] MEDS: Menthol 10%/Methyl Salicylate 15% 85 GM Tube TOP PRN (19:08)
[2023-03-13] MEDS: Potassium Chloride 20 MEQ Tab.ER PO SCH ×2 (07:07→17:31)
[2023-03-13] MEDS: Citalopram 20 MG Tab PO SCH (07:07)
[2023-03-13] MEDS: Furosemide 20 MG Tab PO SCH (07:08)
[2023-03-13] MEDS: Albuterol/Ipratropium 3.0-0.5 MG/3 ML Neb Soln NEB SCH ×2 (07:09→19:15)
[2023-03-13] MEDS: guaiFENesin 600 MG Tab.ER PO SCH ×2 (07:10→19:15)
[2023-03-13] MEDS: Calcium Carbonate 750 MG Tab.Chew PO SCH (07:10)
[2023-03-13] MEDS: Acetaminophen 500 MG Tab PO SCH ×3 (07:11→19:15)
[2023-03-13] MEDS: Cyanocobalamin (Vitamin B12) 1,000 MCG Tab PO SCH (07:11)
[2023-03-13] MEDS: traMADol 50 MG Tab PO SCH (07:12)
[2023-03-13] MEDS: Polyethylene Glycol 3350 Powder 510 GM Bot PO SCH (07:12)
[2023-03-13] MEDS: LEVOTHYROXINE 137 MCG PO SCH (19:15)
[2023-03-13] MEDS: BUPROPION 300 MG PO SCH (19:15)
[2023-03-13] MEDS: Menthol 10%/Methyl Salicylate 15% 85 GM Tube TOP PRN (19:16)
[2023-03-14] MEDS: Furosemide 20 MG Tab PO SCH (07:34)
[2023-03-14] MEDS: Potassium Chloride 20 MEQ Tab.ER PO SCH ×2 (07:34→17:35)
[2023-03-14] MEDS: Albuterol/Ipratropium 3.0-0.5 MG/3 ML Neb Soln NEB SCH ×2 (07:35→19:51)
[2023-03-14] MEDS: Citalopram 20 MG Tab PO SCH (07:35)
[2023-03-14] MEDS: Calcium Carbonate 750 MG Tab.Chew PO SCH (07:36)
[2023-03-14] MEDS: guaiFENesin 600 MG Tab.ER PO SCH ×2 (07:36→19:52)
[2023-03-14] MEDS: Polyethylene Glycol 3350 Powder 510 GM Bot PO SCH (07:36)
[2023-03-14] MEDS: Cyanocobalamin (Vitamin B12) 1,000 MCG Tab PO SCH (07:37)
[2023-03-14] MEDS: Acetaminophen 500 MG Tab PO SCH ×3 (07:37→19:52)
[2023-03-14] MEDS: traMADol 50 MG Tab PO SCH (07:38)
[2023-03-14] MEDS: LEVOTHYROXINE 137 MCG PO SCH (19:51)
[2023-03-14] MEDS: BUPROPION 300 MG PO SCH (19:52)
[2023-03-15] MEDS: Potassium Chloride 20 MEQ Tab.ER PO SCH ×2 (07:56→17:49)
[2023-03-15] MEDS: Albuterol/Ipratropium 3.0-0.5 MG/3 ML Neb Soln NEB SCH ×2 (07:56→19:53)
[2023-03-15] MEDS: Citalopram 20 MG Tab PO SCH (07:56)
[2023-03-15] MEDS: Polyethylene Glycol 3350 Powder 510 GM Bot PO SCH (07:57)
[2023-03-15] MEDS: Furosemide 20 MG Tab PO SCH (07:57)
[2023-03-15] MEDS: guaiFENesin 600 MG Tab.ER PO SCH ×2 (07:58→19:54)
[2023-03-15] MEDS: Calcium Carbonate 750 MG Tab.Chew PO SCH (07:58)
[2023-03-15] MEDS: Acetaminophen 500 MG Tab PO SCH ×3 (07:59→19:55)
[2023-03-15] MEDS: traMADol 50 MG Tab PO SCH (08:01)
[2023-03-15] MEDS: Cyanocobalamin (Vitamin B12) 1,000 MCG Tab PO SCH (08:02)
[2023-03-15] MEDS: LEVOTHYROXINE 137 MCG PO SCH (19:54)
[2023-03-15] MEDS: BUPROPION 300 MG PO SCH (19:55)
[2023-03-16] MEDS: Potassium Chloride 20 MEQ Tab.ER PO SCH ×2 (07:11→17:00)
[2023-03-16] MEDS: Citalopram 20 MG Tab PO SCH (07:11)
[2023-03-16] MEDS: Furosemide 20 MG Tab PO SCH (07:11)
[2023-03-16] MEDS: Albuterol/Ipratropium 3.0-0.5 MG/3 ML Neb Soln NEB SCH ×2 (07:12→19:52)
[2023-03-16] MEDS: guaiFENesin 600 MG Tab.ER PO SCH ×2 (07:13→19:53)
[2023-03-16] MEDS: Polyethylene Glycol 3350 Powder 510 GM Bot PO SCH (07:13)
[2023-03-16] MEDS: Calcium Carbonate 750 MG Tab.Chew PO SCH (07:14)
[2023-03-16] MEDS: Acetaminophen 500 MG Tab PO SCH ×3 (07:14→19:54)
[2023-03-16] MEDS: Cyanocobalamin (Vitamin B12) 1,000 MCG Tab PO SCH (07:15)
[2023-03-16] MEDS: traMADol 50 MG Tab PO SCH (07:16)
[2023-03-16] MEDS: LEVOTHYROXINE 137 MCG PO SCH (19:53)
[2023-03-16] MEDS: BUPROPION 300 MG PO SCH (19:53)
[2023-03-17] MEDS: Citalopram 20 MG Tab PO SCH (07:15)
[2023-03-17] MEDS: Potassium Chloride 20 MEQ Tab.ER PO SCH ×2 (07:17→17:25)
[2023-03-17] MEDS: Furosemide 20 MG Tab PO SCH (07:18)
[2023-03-17] MEDS: Polyethylene Glycol 3350 Powder 510 GM Bot PO SCH (07:19)
[2023-03-17] MEDS: Acetaminophen 500 MG Tab PO SCH ×3 (07:20→19:17)
[2023-03-17] MEDS: guaiFENesin 600 MG Tab.ER PO SCH ×2 (07:20→19:17)
[2023-03-17] MEDS: Calcium Carbonate 750 MG Tab.Chew PO SCH (07:20)
[2023-03-17] MEDS: Cyanocobalamin (Vitamin B12) 1,000 MCG Tab PO SCH (07:21)
[2023-03-17] MEDS: traMADol 50 MG Tab PO SCH (07:22)
[2023-03-17] MEDS: Albuterol/Ipratropium 3.0-0.5 MG/3 ML Neb Soln NEB SCH ×2 (08:54→19:16)
[2023-03-17] MEDS: LEVOTHYROXINE 137 MCG PO SCH (19:16)
[2023-03-17] MEDS: BUPROPION 300 MG PO SCH (19:16)
[2023-03-17] MEDS: Menthol 10%/Methyl Salicylate 15% 85 GM Tube TOP PRN (19:18)
[2023-03-18] MEDS: Polyethylene Glycol 3350 Powder 510 GM Bot PO SCH (07:20)
[2023-03-18] MEDS: traMADol 50 MG Tab PO SCH (07:21)
[2023-03-18] MEDS: guaiFENesin 600 MG Tab.ER PO SCH ×2 (07:22→19:07)
[2023-03-18] MEDS: Calcium Carbonate 750 MG Tab.Chew PO SCH (07:22)
[2023-03-18] MEDS: Acetaminophen 500 MG Tab PO SCH ×3 (07:22→19:07)
[2023-03-18] MEDS: Citalopram 20 MG Tab PO SCH (07:23)
[2023-03-18] MEDS: Furosemide 20 MG Tab PO SCH (07:23)
[2023-03-18] MEDS: Potassium Chloride 20 MEQ Tab.ER PO SCH ×2 (07:23→17:10)
[2023-03-18] MEDS: Albuterol/Ipratropium 3.0-0.5 MG/3 ML Neb Soln NEB SCH ×2 (07:23→19:05)
[2023-03-18] MEDS: Cyanocobalamin (Vitamin B12) 1,000 MCG Tab PO SCH (07:24)
[2023-03-18] MEDS: BUPROPION 300 MG PO SCH (19:06)
[2023-03-18] MEDS: LEVOTHYROXINE 137 MCG PO SCH (19:06)
[2023-03-18] MEDS: Menthol 10%/Methyl Salicylate 15% 85 GM Tube TOP PRN (19:08)
[2023-03-19] MEDS: Furosemide 20 MG Tab PO SCH (08:23)
[2023-03-19] MEDS: Potassium Chloride 20 MEQ Tab.ER PO SCH ×2 (08:23→17:45)
[2023-03-19] MEDS: Citalopram 20 MG Tab PO SCH (08:23)
[2023-03-19] MEDS: Acetaminophen 500 MG Tab PO SCH ×3 (08:24→19:12)
[2023-03-19] MEDS: Albuterol/Ipratropium 3.0-0.5 MG/3 ML Neb Soln NEB SCH ×2 (08:24→19:08)
[2023-03-19] MEDS: guaiFENesin 600 MG Tab.ER PO SCH ×2 (08:25→19:12)
[2023-03-19] MEDS: Cyanocobalamin (Vitamin B12) 1,000 MCG Tab PO SCH (08:25)
[2023-03-19] MEDS: Calcium Carbonate 750 MG Tab.Chew PO SCH (08:25)
[2023-03-19] MEDS: traMADol 50 MG Tab PO SCH (08:26)
[2023-03-19] MEDS: Polyethylene Glycol 3350 Powder 510 GM Bot PO SCH (08:27)
[2023-03-19] MEDS: LEVOTHYROXINE 137 MCG PO SCH (19:10)
[2023-03-19] MEDS: BUPROPION 300 MG PO SCH (19:11)
[2023-03-19] MEDS: Menthol 10%/Methyl Salicylate 15% 85 GM Tube TOP PRN (19:14)
[2023-03-20] MEDS: Menthol 10%/Methyl Salicylate 15% 85 GM Tube TOP PRN (07:45)
[2023-03-20] MEDS: Citalopram 20 MG Tab PO SCH (08:41)
[2023-03-20] MEDS: Furosemide 20 MG Tab PO SCH ×2 (08:41→12:49)
[2023-03-20] MEDS: Potassium Chloride 20 MEQ Tab.ER PO SCH ×2 (08:41→17:53)
[2023-03-20] MEDS: Albuterol/Ipratropium 3.0-0.5 MG/3 ML Neb Soln NEB SCH ×2 (08:42→19:44)
[2023-03-20] MEDS: guaiFENesin 600 MG Tab.ER PO SCH ×2 (08:43→19:45)
[2023-03-20] MEDS: Calcium Carbonate 750 MG Tab.Chew PO SCH (08:43)
[2023-03-20] MEDS: Acetaminophen 500 MG Tab PO SCH ×3 (08:44→19:45)
[2023-03-20] MEDS: Cyanocobalamin (Vitamin B12) 1,000 MCG Tab PO SCH (08:44)
[2023-03-20] MEDS: Polyethylene Glycol 3350 Powder 510 GM Bot PO SCH (08:45)
[2023-03-20] MEDS: traMADol 50 MG Tab PO SCH (08:50)
[2023-03-20 12:46] LABS: CALCIUM 9.3 mg/dL (8.5-10.1); CREATININE 0.65 mg/dL (0.51-1.17); EST CRCL DRUG DOSING (CG) 84.01 mL/min; POTASSIUM,K 4.8 mmol/L (3.5-5.1)
[2023-03-20 13:01] LABS: ANION GAP 4.8 meq/L (7-15)
[2023-03-20] MEDS: LEVOTHYROXINE 137 MCG PO SCH (19:44)
[2023-03-20] MEDS: BUPROPION 300 MG PO SCH (19:45)
[2023-03-21] MEDS: traMADol 50 MG Tab PO SCH (07:29)
[2023-03-21] MEDS: guaiFENesin 600 MG Tab.ER PO SCH ×2 (07:31→19:38)
[2023-03-21] MEDS: Acetaminophen 500 MG Tab PO SCH ×3 (07:31→19:39)
[2023-03-21] MEDS: Polyethylene Glycol 3350 Powder 510 GM Bot PO SCH (07:31)
[2023-03-21] MEDS: Albuterol/Ipratropium 3.0-0.5 MG/3 ML Neb Soln NEB SCH ×3 (07:32→20:50)
[2023-03-21] MEDS: Citalopram 20 MG Tab PO SCH (07:32)
[2023-03-21] MEDS: Cyanocobalamin (Vitamin B12) 1,000 MCG Tab PO SCH (07:32)
[2023-03-21] MEDS: Furosemide 20 MG Tab PO SCH ×2 (07:33→11:23)
[2023-03-21] MEDS: Potassium Chloride 20 MEQ Tab.ER PO SCH ×2 (07:33→17:16)
[2023-03-21] MEDS: Calcium Carbonate 750 MG Tab.Chew PO SCH (07:34)
[2023-03-21] MEDS: BUPROPION 300 MG PO SCH (19:38)
[2023-03-21] MEDS: LEVOTHYROXINE 137 MCG PO SCH (19:38)
[2023-03-22] MEDS: Polyethylene Glycol 3350 Powder 510 GM Bot PO SCH (07:10)
[2023-03-22] MEDS: traMADol 50 MG Tab PO SCH (07:11)
[2023-03-22] MEDS: Acetaminophen 500 MG Tab PO SCH ×3 (07:11→19:00)
[2023-03-22] MEDS: Calcium Carbonate 750 MG Tab.Chew PO SCH (07:12)
[2023-03-22] MEDS: guaiFENesin 600 MG Tab.ER PO SCH ×2 (07:12→19:00)
[2023-03-22] MEDS: Cyanocobalamin (Vitamin B12) 1,000 MCG Tab PO SCH (07:12)
[2023-03-22] MEDS: Citalopram 20 MG Tab PO SCH (07:13)
[2023-03-22] MEDS: Albuterol/Ipratropium 3.0-0.5 MG/3 ML Neb Soln NEB SCH ×2 (07:13→18:59)
[2023-03-22] MEDS: Furosemide 20 MG Tab PO SCH ×2 (07:14→11:08)
[2023-03-22] MEDS: Potassium Chloride 20 MEQ Tab.ER PO SCH ×2 (07:14→17:09)
[2023-03-22] MEDS: LEVOTHYROXINE 137 MCG PO SCH (18:59)
[2023-03-22] MEDS: BUPROPION 300 MG PO SCH (18:59)
[2023-03-23] MEDS: Acetaminophen 500 MG Tab PO SCH ×3 (07:18→19:41)
[2023-03-23] MEDS: Calcium Carbonate 750 MG Tab.Chew PO SCH (07:18)
[2023-03-23] MEDS: guaiFENesin 600 MG Tab.ER PO SCH ×2 (07:18→19:40)
[2023-03-23] MEDS: traMADol 50 MG Tab PO SCH (07:19)
[2023-03-23] MEDS: Albuterol/Ipratropium 3.0-0.5 MG/3 ML Neb Soln NEB SCH ×2 (07:20→19:38)
[2023-03-23] MEDS: Citalopram 20 MG Tab PO SCH (07:20)
[2023-03-23] MEDS: Furosemide 20 MG Tab PO SCH ×2 (07:20→11:05)
[2023-03-23] MEDS: Potassium Chloride 20 MEQ Tab.ER PO SCH ×2 (07:20→17:06)
[2023-03-23] MEDS: Polyethylene Glycol 3350 Powder 510 GM Bot PO SCH (07:20)
[2023-03-23] MEDS: Cyanocobalamin (Vitamin B12) 1,000 MCG Tab PO SCH (07:21)
[2023-03-23] MEDS: LEVOTHYROXINE 137 MCG PO SCH (19:39)
[2023-03-23] MEDS: BUPROPION 300 MG PO SCH (19:40)
[2023-03-24] MEDS: Furosemide 20 MG Tab PO SCH ×2 (07:12→11:16)
[2023-03-24] MEDS: Potassium Chloride 20 MEQ Tab.ER PO SCH ×2 (07:13→17:22)
[2023-03-24] MEDS: Citalopram 20 MG Tab PO SCH (07:13)
[2023-03-24] MEDS: Albuterol/Ipratropium 3.0-0.5 MG/3 ML Neb Soln NEB SCH ×2 (07:13→20:08)
[2023-03-24] MEDS: guaiFENesin 600 MG Tab.ER PO SCH ×2 (07:14→20:09)
[2023-03-24] MEDS: Polyethylene Glycol 3350 Powder 510 GM Bot PO SCH (07:14)
[2023-03-24] MEDS: Calcium Carbonate 750 MG Tab.Chew PO SCH (07:16)
[2023-03-24] MEDS: Acetaminophen 500 MG Tab PO SCH ×3 (07:16→20:10)
[2023-03-24] MEDS: Cyanocobalamin (Vitamin B12) 1,000 MCG Tab PO SCH (07:17)
[2023-03-24] MEDS: traMADol 50 MG Tab PO SCH (07:18)
[2023-03-24] MEDS: LEVOTHYROXINE 137 MCG PO SCH (20:09)
[2023-03-24] MEDS: BUPROPION 300 MG PO SCH (20:10)
[2023-03-25] MEDS: Potassium Chloride 20 MEQ Tab.ER PO SCH ×2 (07:36→18:22)
[2023-03-25] MEDS: Citalopram 20 MG Tab PO SCH (07:36)
[2023-03-25] MEDS: Albuterol/Ipratropium 3.0-0.5 MG/3 ML Neb Soln NEB SCH ×2 (07:36→19:12)
[2023-03-25] MEDS: Furosemide 20 MG Tab PO SCH ×2 (07:37→12:05)
[2023-03-25] MEDS: Polyethylene Glycol 3350 Powder 510 GM Bot PO SCH (07:38)
[2023-03-25] MEDS: Calcium Carbonate 750 MG Tab.Chew PO SCH (07:39)
[2023-03-25] MEDS: guaiFENesin 600 MG Tab.ER PO SCH ×2 (07:39→19:14)
[2023-03-25] MEDS: Acetaminophen 500 MG Tab PO SCH ×3 (07:40→19:14)
[2023-03-25] MEDS: Cyanocobalamin (Vitamin B12) 1,000 MCG Tab PO SCH (07:40)
[2023-03-25] MEDS: traMADol 50 MG Tab PO SCH (07:42)
[2023-03-25] MEDS: LEVOTHYROXINE 137 MCG PO SCH (19:13)
[2023-03-25] MEDS: BUPROPION 300 MG PO SCH (19:13)
[2023-03-25] MEDS: Menthol 10%/Methyl Salicylate 15% 85 GM Tube TOP PRN (19:15)
[2023-03-26] MEDS: Polyethylene Glycol 3350 Powder 510 GM Bot PO SCH (07:17)
[2023-03-26] MEDS: Calcium Carbonate 750 MG Tab.Chew PO SCH (07:17)
[2023-03-26] MEDS: Acetaminophen 500 MG Tab PO SCH ×3 (07:18→19:38)
[2023-03-26] MEDS: Cyanocobalamin (Vitamin B12) 1,000 MCG Tab PO SCH (07:18)
[2023-03-26] MEDS: guaiFENesin 600 MG Tab.ER PO SCH ×2 (07:19→19:37)
[2023-03-26] MEDS: traMADol 50 MG Tab PO SCH (07:19)
[2023-03-26] MEDS: Potassium Chloride 20 MEQ Tab.ER PO SCH ×2 (07:20→17:34)
[2023-03-26] MEDS: Citalopram 20 MG Tab PO SCH (07:20)
[2023-03-26] MEDS: Albuterol/Ipratropium 3.0-0.5 MG/3 ML Neb Soln NEB SCH ×2 (07:20→19:36)
[2023-03-26] MEDS: Furosemide 20 MG Tab PO SCH ×2 (07:20→11:13)
[2023-03-26] MEDS: LEVOTHYROXINE 137 MCG PO SCH (19:36)
[2023-03-26] MEDS: BUPROPION 300 MG PO SCH (19:37)
[2023-03-27] MEDS: Citalopram 20 MG Tab PO SCH (07:23)
[2023-03-27] MEDS: Potassium Chloride 20 MEQ Tab.ER PO SCH ×2 (07:23→17:55)
[2023-03-27] MEDS: Furosemide 20 MG Tab PO SCH ×2 (07:24→12:05)
[2023-03-27] MEDS: Albuterol/Ipratropium 3.0-0.5 MG/3 ML Neb Soln NEB SCH ×2 (07:25→19:42)
[2023-03-27] MEDS: Polyethylene Glycol 3350 Powder 510 GM Bot PO SCH (07:26)
[2023-03-27] MEDS: guaiFENesin 600 MG Tab.ER PO SCH ×2 (07:27→19:44)
[2023-03-27] MEDS: Calcium Carbonate 750 MG Tab.Chew PO SCH (07:27)
[2023-03-27] MEDS: Acetaminophen 500 MG Tab PO SCH ×3 (07:28→19:44)
[2023-03-27] MEDS: Cyanocobalamin (Vitamin B12) 1,000 MCG Tab PO SCH (07:34)
[2023-03-27] MEDS: traMADol 50 MG Tab PO PRN (08:05)
[2023-03-27] MEDS: traMADol 50 MG Tab PO SCH (08:52)
[2023-03-27] MEDS: LEVOTHYROXINE 137 MCG PO SCH (19:42)
[2023-03-27] MEDS: BUPROPION 300 MG PO SCH (19:44)
[2023-03-28] MEDS: Albuterol/Ipratropium 3.0-0.5 MG/3 ML Neb Soln NEB SCH ×2 (07:26→19:05)
[2023-03-28] MEDS: Potassium Chloride 20 MEQ Tab.ER PO SCH ×2 (07:26→17:20)
[2023-03-28] MEDS: Citalopram 20 MG Tab PO SCH (07:26)
[2023-03-28] MEDS: Furosemide 20 MG Tab PO SCH ×2 (07:26→11:17)
[2023-03-28] MEDS: Cyanocobalamin (Vitamin B12) 1,000 MCG Tab PO SCH (07:27)
[2023-03-28] MEDS: Acetaminophen 500 MG Tab PO SCH ×3 (07:27→19:06)
[2023-03-28] MEDS: Calcium Carbonate 750 MG Tab.Chew PO SCH (07:27)
[2023-03-28] MEDS: Polyethylene Glycol 3350 Powder 510 GM Bot PO SCH (07:27)
[2023-03-28] MEDS: guaiFENesin 600 MG Tab.ER PO SCH ×2 (07:28→19:06)
[2023-03-28] MEDS: traMADol 50 MG Tab PO SCH (07:28)
[2023-03-28] MEDS: LEVOTHYROXINE 137 MCG PO SCH (19:06)
[2023-03-28] MEDS: BUPROPION 300 MG PO SCH (19:06)
[2023-03-28] MEDS: Menthol 10%/Methyl Salicylate 15% 85 GM Tube TOP PRN (19:07)
[2023-03-29] MEDS: Furosemide 20 MG Tab PO SCH ×2 (07:20→11:29)
[2023-03-29] MEDS: Albuterol/Ipratropium 3.0-0.5 MG/3 ML Neb Soln NEB SCH ×2 (07:20→19:04)
[2023-03-29] MEDS: guaiFENesin 600 MG Tab.ER PO SCH ×2 (07:21→19:05)
[2023-03-29] MEDS: Polyethylene Glycol 3350 Powder 510 GM Bot PO SCH (07:21)
[2023-03-29] MEDS: Potassium Chloride 20 MEQ Tab.ER PO SCH ×2 (07:21→17:48)
[2023-03-29] MEDS: Citalopram 20 MG Tab PO SCH (07:21)
[2023-03-29] MEDS: Acetaminophen 500 MG Tab PO SCH ×3 (07:22→19:06)
[2023-03-29] MEDS: Cyanocobalamin (Vitamin B12) 1,000 MCG Tab PO SCH (07:22)
[2023-03-29] MEDS: Calcium Carbonate 750 MG Tab.Chew PO SCH (07:22)
[2023-03-29] MEDS: traMADol 50 MG Tab PO SCH (07:23)
[2023-03-29] MEDS: LEVOTHYROXINE 137 MCG PO SCH (19:04)
[2023-03-29] MEDS: BUPROPION 300 MG PO SCH (19:04)
[2023-03-29] MEDS: Menthol 10%/Methyl Salicylate 15% 85 GM Tube TOP PRN (19:06)
[2023-03-30] MEDS: Albuterol/Ipratropium 3.0-0.5 MG/3 ML Neb Soln NEB SCH ×2 (07:07→18:59)
[2023-03-30] MEDS: Furosemide 20 MG Tab PO SCH ×2 (07:07→11:16)
[2023-03-30] MEDS: Potassium Chloride 20 MEQ Tab.ER PO SCH ×2 (07:07→17:07)
[2023-03-30] MEDS: Citalopram 20 MG Tab PO SCH (07:07)
[2023-03-30] MEDS: Acetaminophen 500 MG Tab PO SCH ×3 (07:08→19:00)
[2023-03-30] MEDS: Polyethylene Glycol 3350 Powder 510 GM Bot PO SCH (07:08)
[2023-03-30] MEDS: Calcium Carbonate 750 MG Tab.Chew PO SCH (07:08)
[2023-03-30] MEDS: guaiFENesin 600 MG Tab.ER PO SCH ×2 (07:08→19:00)
[2023-03-30] MEDS: Cyanocobalamin (Vitamin B12) 1,000 MCG Tab PO SCH (07:08)
[2023-03-30] MEDS: traMADol 50 MG Tab PO SCH (07:10)
[2023-03-30] MEDS: BUPROPION 300 MG PO SCH (18:59)
[2023-03-30] MEDS: LEVOTHYROXINE 137 MCG PO SCH (18:59)
[2023-03-30] MEDS: Menthol 10%/Methyl Salicylate 15% 85 GM Tube TOP PRN (19:01)
[2023-03-31] MEDS: Polyethylene Glycol 3350 Powder 510 GM Bot PO SCH (07:19)
[2023-03-31] MEDS: Acetaminophen 500 MG Tab PO SCH ×3 (07:20→19:24)
[2023-03-31] MEDS: guaiFENesin 600 MG Tab.ER PO SCH ×2 (07:20→19:24)
[2023-03-31] MEDS: Calcium Carbonate 750 MG Tab.Chew PO SCH (07:20)
[2023-03-31] MEDS: traMADol 50 MG Tab PO SCH (07:21)
[2023-03-31] MEDS: Albuterol/Ipratropium 3.0-0.5 MG/3 ML Neb Soln NEB SCH ×2 (07:22→19:23)
[2023-03-31] MEDS: Citalopram 20 MG Tab PO SCH (07:22)
[2023-03-31] MEDS: Potassium Chloride 20 MEQ Tab.ER PO SCH ×2 (07:22→17:22)
[2023-03-31] MEDS: Furosemide 20 MG Tab PO SCH ×2 (07:23→11:12)
[2023-03-31] MEDS: Cyanocobalamin (Vitamin B12) 1,000 MCG Tab PO SCH (07:23)
[2023-03-31] MEDS: LEVOTHYROXINE 137 MCG PO SCH (19:23)
[2023-03-31] MEDS: BUPROPION 300 MG PO SCH (19:23)
[2023-04-01] MEDS: traMADol 50 MG Tab PO SCH (07:01)
[2023-04-01] MEDS: Acetaminophen 500 MG Tab PO SCH ×3 (07:02→19:23)
[2023-04-01] MEDS: Polyethylene Glycol 3350 Powder 510 GM Bot PO SCH (07:03)
[2023-04-01] MEDS: Cyanocobalamin (Vitamin B12) 1,000 MCG Tab PO SCH (07:03)
[2023-04-01] MEDS: Calcium Carbonate 750 MG Tab.Chew PO SCH (07:03)
[2023-04-01] MEDS: Furosemide 20 MG Tab PO SCH ×2 (07:04→11:13)
[2023-04-01] MEDS: Citalopram 20 MG Tab PO SCH (07:04)
[2023-04-01] MEDS: Potassium Chloride 20 MEQ Tab.ER PO SCH ×2 (07:04→17:14)
[2023-04-01] MEDS: Albuterol/Ipratropium 3.0-0.5 MG/3 ML Neb Soln NEB SCH ×2 (07:04→19:21)
[2023-04-01] MEDS: guaiFENesin 600 MG Tab.ER PO SCH ×2 (07:05→19:22)
[2023-04-01] MEDS: LEVOTHYROXINE 137 MCG PO SCH (19:22)
[2023-04-01] MEDS: BUPROPION 300 MG PO SCH (19:22)
[2023-04-02] MEDS: Polyethylene Glycol 3350 Powder 510 GM Bot PO SCH (07:44)
[2023-04-02] MEDS: traMADol 50 MG Tab PO SCH (07:45)
[2023-04-02] MEDS: Calcium Carbonate 750 MG Tab.Chew PO SCH (07:49)
[2023-04-02] MEDS: Acetaminophen 500 MG Tab PO SCH ×3 (07:49→19:16)
[2023-04-02] MEDS: Citalopram 20 MG Tab PO SCH (07:50)
[2023-04-02] MEDS: guaiFENesin 600 MG Tab.ER PO SCH ×2 (07:50→19:16)
[2023-04-02] MEDS: Cyanocobalamin (Vitamin B12) 1,000 MCG Tab PO SCH (07:50)
[2023-04-02] MEDS: Albuterol/Ipratropium 3.0-0.5 MG/3 ML Neb Soln NEB SCH ×2 (07:51→19:15)
[2023-04-02] MEDS: Potassium Chloride 20 MEQ Tab.ER PO SCH ×2 (07:51→17:10)
[2023-04-02] MEDS: Furosemide 20 MG Tab PO SCH ×2 (07:51→11:04)
[2023-04-02] MEDS: BUPROPION 300 MG PO SCH (19:15)
[2023-04-02] MEDS: LEVOTHYROXINE 137 MCG PO SCH (19:15)
[2023-04-02] MEDS: Menthol 10%/Methyl Salicylate 15% 85 GM Tube TOP PRN (19:17)
[2023-04-03] MEDS: Potassium Chloride 20 MEQ Tab.ER PO SCH ×2 (07:54→18:07)
[2023-04-03] MEDS: Citalopram 20 MG Tab PO SCH (07:55)
[2023-04-03] MEDS: Albuterol/Ipratropium 3.0-0.5 MG/3 ML Neb Soln NEB SCH ×2 (07:56→19:17)
[2023-04-03] MEDS: Furosemide 20 MG Tab PO SCH ×2 (07:56→11:52)
[2023-04-03] MEDS: Acetaminophen 500 MG Tab PO SCH ×3 (07:57→19:18)
[2023-04-03] MEDS: Polyethylene Glycol 3350 Powder 510 GM Bot PO SCH (07:57)
[2023-04-03] MEDS: Calcium Carbonate 750 MG Tab.Chew PO SCH (07:59)
[2023-04-03] MEDS: Cyanocobalamin (Vitamin B12) 1,000 MCG Tab PO SCH (08:00)
[2023-04-03] MEDS: guaiFENesin 600 MG Tab.ER PO SCH ×2 (08:00→19:18)
[2023-04-03] MEDS: traMADol 50 MG Tab PO SCH (08:01)
[2023-04-03] MEDS: BUPROPION 300 MG PO SCH (19:17)
[2023-04-03] MEDS: LEVOTHYROXINE 137 MCG PO SCH (19:17)
[2023-04-03] MEDS: Menthol 10%/Methyl Salicylate 15% 85 GM Tube TOP PRN (19:19)
[2023-04-04] MEDS: Potassium Chloride 20 MEQ Tab.ER PO SCH ×2 (07:04→17:36)
[2023-04-04] MEDS: Citalopram 20 MG Tab PO SCH (07:05)
[2023-04-04] MEDS: Furosemide 20 MG Tab PO SCH ×2 (07:06→12:21)
[2023-04-04] MEDS: Albuterol/Ipratropium 3.0-0.5 MG/3 ML Neb Soln NEB SCH ×2 (07:06→19:53)
[2023-04-04] MEDS: Polyethylene Glycol 3350 Powder 510 GM Bot PO SCH (07:07)
[2023-04-04] MEDS: Calcium Carbonate 750 MG Tab.Chew PO SCH (07:08)
[2023-04-04] MEDS: Acetaminophen 500 MG Tab PO SCH ×3 (07:08→19:55)
[2023-04-04] MEDS: Cyanocobalamin (Vitamin B12) 1,000 MCG Tab PO SCH (07:09)
[2023-04-04] MEDS: traMADol 50 MG Tab PO SCH (07:10)
[2023-04-04] MEDS: guaiFENesin 600 MG Tab.ER PO SCH ×2 (07:12→19:54)
[2023-04-04] MEDS: LEVOTHYROXINE 137 MCG PO SCH (19:53)
[2023-04-04] MEDS: BUPROPION 300 MG PO SCH (19:54)
[2023-04-05] MEDS: Citalopram 20 MG Tab PO SCH (07:03)
[2023-04-05] MEDS: Potassium Chloride 20 MEQ Tab.ER PO SCH ×2 (07:03→17:00)
[2023-04-05] MEDS: Albuterol/Ipratropium 3.0-0.5 MG/3 ML Neb Soln NEB SCH ×2 (07:04→19:48)
[2023-04-05] MEDS: Furosemide 20 MG Tab PO SCH ×2 (07:04→12:03)
[2023-04-05] MEDS: Polyethylene Glycol 3350 Powder 510 GM Bot PO SCH (07:05)
[2023-04-05] MEDS: guaiFENesin 600 MG Tab.ER PO SCH ×2 (07:07→19:49)
[2023-04-05] MEDS: Calcium Carbonate 750 MG Tab.Chew PO SCH (07:08)
[2023-04-05] MEDS: Cyanocobalamin (Vitamin B12) 1,000 MCG Tab PO SCH (07:09)
[2023-04-05] MEDS: Acetaminophen 500 MG Tab PO SCH ×3 (07:09→19:50)
[2023-04-05] MEDS: traMADol 50 MG Tab PO SCH (07:10)
[2023-04-05] MEDS: LEVOTHYROXINE 137 MCG PO SCH (19:49)
[2023-04-05] MEDS: BUPROPION 300 MG PO SCH (19:50)
[2023-04-06] MEDS: Citalopram 20 MG Tab PO SCH (07:20)
[2023-04-06] MEDS: Potassium Chloride 20 MEQ Tab.ER PO SCH ×2 (07:20→17:36)
[2023-04-06] MEDS: Furosemide 20 MG Tab PO SCH ×2 (07:21→11:47)
[2023-04-06] MEDS: Albuterol/Ipratropium 3.0-0.5 MG/3 ML Neb Soln NEB SCH ×2 (07:21→20:05)
[2023-04-06] MEDS: guaiFENesin 600 MG Tab.ER PO SCH ×2 (07:21→20:06)
[2023-04-06] MEDS: Polyethylene Glycol 3350 Powder 510 GM Bot PO SCH (07:22)
[2023-04-06] MEDS: Acetaminophen 500 MG Tab PO SCH ×3 (07:22→20:07)
[2023-04-06] MEDS: Calcium Carbonate 750 MG Tab.Chew PO SCH (07:23)
[2023-04-06] MEDS: Cyanocobalamin (Vitamin B12) 1,000 MCG Tab PO SCH (07:24)
[2023-04-06] MEDS: traMADol 50 MG Tab PO SCH (07:24)
[2023-04-06] MEDS: BUPROPION 300 MG PO SCH (20:06)
[2023-04-06] MEDS: LEVOTHYROXINE 137 MCG PO SCH (20:06)
[2023-04-07] MEDS: Furosemide 20 MG Tab PO SCH ×2 (07:31→12:02)
[2023-04-07] MEDS: Potassium Chloride 20 MEQ Tab.ER PO SCH ×2 (07:31→17:22)
[2023-04-07] MEDS: Albuterol/Ipratropium 3.0-0.5 MG/3 ML Neb Soln NEB SCH ×2 (07:32→19:05)
[2023-04-07] MEDS: Polyethylene Glycol 3350 Powder 510 GM Bot PO SCH (07:32)
[2023-04-07] MEDS: guaiFENesin 600 MG Tab.ER PO SCH ×2 (07:33→19:06)
[2023-04-07] MEDS: Calcium Carbonate 750 MG Tab.Chew PO SCH (07:33)
[2023-04-07] MEDS: Cyanocobalamin (Vitamin B12) 1,000 MCG Tab PO SCH (07:34)
[2023-04-07] MEDS: Acetaminophen 500 MG Tab PO SCH ×3 (07:34→19:06)
[2023-04-07] MEDS: traMADol 50 MG Tab PO SCH (07:35)
[2023-04-07] MEDS: Citalopram 20 MG Tab PO SCH (07:37)
[2023-04-07] MEDS: LEVOTHYROXINE 137 MCG PO SCH (19:06)
[2023-04-07] MEDS: BUPROPION 300 MG PO SCH (19:06)
[2023-04-07] MEDS: Menthol 10%/Methyl Salicylate 15% 85 GM Tube TOP PRN (19:07)
[2023-04-08] MEDS: Albuterol/Ipratropium 3.0-0.5 MG/3 ML Neb Soln NEB SCH ×2 (07:44→19:18)
[2023-04-08] MEDS: Polyethylene Glycol 3350 Powder 510 GM Bot PO SCH (07:44)
[2023-04-08] MEDS: Potassium Chloride 20 MEQ Tab.ER PO SCH ×2 (07:44→17:25)
[2023-04-08] MEDS: Citalopram 20 MG Tab PO SCH (07:45)
[2023-04-08] MEDS: Cyanocobalamin (Vitamin B12) 1,000 MCG Tab PO SCH (07:45)
[2023-04-08] MEDS: Furosemide 20 MG Tab PO SCH ×2 (07:45→11:18)
[2023-04-08] MEDS: Acetaminophen 500 MG Tab PO SCH ×3 (07:45→19:19)
[2023-04-08] MEDS: Calcium Carbonate 750 MG Tab.Chew PO SCH (07:46)
[2023-04-08] MEDS: traMADol 50 MG Tab PO SCH (07:46)
[2023-04-08] MEDS: guaiFENesin 600 MG Tab.ER PO SCH ×2 (07:46→19:18)
[2023-04-08 15:51] LABS: APPEARANCE,URINE CLEAR; BILIRUBIN,URINE NEGATIVE (NEGATIVE); GLUCOSE,URINE NEGATIVE (NEGATIVE); KETONES,URINE NEGATIVE (NEGATIVE); LEUKOCYTE ESTERASE,URINE NEGATIVE (NEGATIVE); NITRITE,URINE NEGATIVE (NEGATIVE); OCCULT BLOOD,URINE NEGATIVE (NEGATIVE); PROTEIN,URINE NEGATIVE (NEGATIVE); UROBILINOGEN,URINE 0.2 E.U./dL (0.2-1.0)
[2023-04-08 15:52] LABS: COLOR,URINE LIGHT YELLOW
[2023-04-08] MEDS: BUPROPION 300 MG PO SCH (19:18)
[2023-04-08] MEDS: LEVOTHYROXINE 137 MCG PO SCH (19:18)
[2023-04-08] MEDS: Menthol 10%/Methyl Salicylate 15% 85 GM Tube TOP PRN (19:19)
[2023-04-09] MEDS: Citalopram 20 MG Tab PO SCH (07:05)
[2023-04-09] MEDS: Albuterol/Ipratropium 3.0-0.5 MG/3 ML Neb Soln NEB SCH ×2 (07:06→19:14)
[2023-04-09] MEDS: Albuterol/Ipratropium 3.0-0.5 MG/3 ML Neb Soln NEB PRN (07:06)
[2023-04-09] MEDS: Furosemide 20 MG Tab PO SCH ×2 (07:07→12:04)
[2023-04-09] MEDS: Potassium Chloride 20 MEQ Tab.ER PO SCH ×2 (07:07→17:43)
[2023-04-09] MEDS: Polyethylene Glycol 3350 Powder 510 GM Bot PO SCH (07:08)
[2023-04-09] MEDS: Calcium Carbonate 750 MG Tab.Chew PO SCH (07:09)
[2023-04-09] MEDS: guaiFENesin 600 MG Tab.ER PO SCH ×2 (07:09→19:15)
[2023-04-09] MEDS: Acetaminophen 500 MG Tab PO SCH ×3 (07:10→19:15)
[2023-04-09] MEDS: Cyanocobalamin (Vitamin B12) 1,000 MCG Tab PO SCH (07:31)
[2023-04-09 09:42] LABS: ANION GAP 5.4 meq/L (7-15); CALCIUM 9.5 mg/dL (8.5-10.1); CARBON DIOXIDE,CO2 30.6 mmol/L (21.0-32.0); CREATININE 0.66 mg/dL (0.51-1.17); EST CRCL DRUG DOSING (CG) 82.73 mL/min
[2023-04-09] MEDS: traMADol 50 MG Tab PO SCH (09:49)
[2023-04-09] MEDS: BUPROPION 300 MG PO SCH (19:14)
[2023-04-09] MEDS: LEVOTHYROXINE 137 MCG PO SCH (19:14)
[2023-04-09] MEDS: Menthol 10%/Methyl Salicylate 15% 85 GM Tube TOP PRN (19:16)
[2023-04-10] MEDS: Albuterol/Ipratropium 3.0-0.5 MG/3 ML Neb Soln NEB SCH ×2 (07:32→19:49)
[2023-04-10] MEDS: Potassium Chloride 20 MEQ Tab.ER PO SCH ×2 (07:34→17:22)
[2023-04-10] MEDS: Citalopram 20 MG Tab PO SCH (07:34)
[2023-04-10] MEDS: Furosemide 20 MG Tab PO SCH ×2 (07:35→11:05)
[2023-04-10] MEDS: guaiFENesin 600 MG Tab.ER PO SCH ×2 (07:36→19:50)
[2023-04-10] MEDS: Cyanocobalamin (Vitamin B12) 1,000 MCG Tab PO SCH (07:36)
[2023-04-10] MEDS: Calcium Carbonate 750 MG Tab.Chew PO SCH (07:36)
[2023-04-10] MEDS: Polyethylene Glycol 3350 Powder 510 GM Bot PO SCH (07:36)
[2023-04-10] MEDS: Acetaminophen 500 MG Tab PO SCH ×3 (07:37→19:50)
[2023-04-10] MEDS: traMADol 50 MG Tab PO SCH (07:38)
[2023-04-10] MEDS: LEVOTHYROXINE 137 MCG PO SCH (19:49)
[2023-04-10] MEDS: BUPROPION 300 MG PO SCH (19:50)
[2023-04-11] MEDS: Citalopram 20 MG Tab PO SCH (07:24)
[2023-04-11] MEDS: Albuterol/Ipratropium 3.0-0.5 MG/3 ML Neb Soln NEB SCH ×2 (07:25→19:47)
[2023-04-11] MEDS: Furosemide 20 MG Tab PO SCH ×2 (07:26→11:44)
[2023-04-11] MEDS: Potassium Chloride 20 MEQ Tab.ER PO SCH ×2 (07:26→17:17)
[2023-04-11] MEDS: Polyethylene Glycol 3350 Powder 510 GM Bot PO SCH (09:17)
[2023-04-11] MEDS: guaiFENesin 600 MG Tab.ER PO SCH ×2 (09:18→19:47)
[2023-04-11] MEDS: Acetaminophen 500 MG Tab PO SCH ×3 (09:18→19:48)
[2023-04-11] MEDS: traMADol 50 MG Tab PO SCH (09:21)
[2023-04-11] MEDS: Calcium Carbonate 750 MG Tab.Chew PO SCH (09:23)
[2023-04-11] MEDS: Cyanocobalamin (Vitamin B12) 1,000 MCG Tab PO SCH (09:25)
[2023-04-11] MEDS: BUPROPION 300 MG PO SCH (19:47)
[2023-04-11] MEDS: LEVOTHYROXINE 137 MCG PO SCH (19:47)
[2023-04-12] MEDS: traMADol 50 MG Tab PO SCH (07:01)
[2023-04-12] MEDS: Polyethylene Glycol 3350 Powder 510 GM Bot PO SCH (07:01)
[2023-04-12] MEDS: Acetaminophen 500 MG Tab PO SCH ×3 (07:02→19:49)
[2023-04-12] MEDS: Calcium Carbonate 750 MG Tab.Chew PO SCH (07:03)
[2023-04-12] MEDS: guaiFENesin 600 MG Tab.ER PO SCH ×2 (07:03→19:49)
[2023-04-12] MEDS: Albuterol/Ipratropium 3.0-0.5 MG/3 ML Neb Soln NEB SCH ×2 (07:06→19:40)
[2023-04-12] MEDS: Potassium Chloride 20 MEQ Tab.ER PO SCH ×2 (07:10→17:14)
[2023-04-12] MEDS: Citalopram 20 MG Tab PO SCH (07:10)
[2023-04-12] MEDS: Furosemide 20 MG Tab PO SCH ×2 (07:11→11:37)
[2023-04-12] MEDS: Cyanocobalamin (Vitamin B12) 1,000 MCG Tab PO SCH (07:11)
[2023-04-12] MEDS: BUPROPION 300 MG PO SCH (19:49)
[2023-04-12] MEDS: LEVOTHYROXINE 137 MCG PO SCH (19:49)
[2023-04-13] MEDS: Polyethylene Glycol 3350 Powder 510 GM Bot PO SCH (07:22)
[2023-04-13] MEDS: Acetaminophen 500 MG Tab PO SCH ×3 (07:23→19:25)
[2023-04-13] MEDS: traMADol 50 MG Tab PO SCH (07:23)
[2023-04-13] MEDS: Cyanocobalamin (Vitamin B12) 1,000 MCG Tab PO SCH (07:24)
[2023-04-13] MEDS: Calcium Carbonate 750 MG Tab.Chew PO SCH (07:24)
[2023-04-13] MEDS: Albuterol/Ipratropium 3.0-0.5 MG/3 ML Neb Soln NEB SCH ×2 (07:25→19:24)
[2023-04-13] MEDS: Potassium Chloride 20 MEQ Tab.ER PO SCH ×2 (07:25→17:14)
[2023-04-13] MEDS: Citalopram 20 MG Tab PO SCH (07:25)
[2023-04-13] MEDS: Furosemide 20 MG Tab PO SCH ×2 (07:25→11:12)
[2023-04-13] MEDS: guaiFENesin 600 MG Tab.ER PO SCH ×2 (07:26→19:25)
[2023-04-13] MEDS: LEVOTHYROXINE 137 MCG PO SCH (19:24)
[2023-04-13] MEDS: BUPROPION 300 MG PO SCH (19:24)
[2023-04-13] MEDS: Menthol 10%/Methyl Salicylate 15% 85 GM Tube TOP PRN (19:25)
[2023-04-14] MEDS: traMADol 50 MG Tab PO SCH (07:26)
[2023-04-14] MEDS: guaiFENesin 600 MG Tab.ER PO SCH ×2 (07:27→19:16)
[2023-04-14] MEDS: Cyanocobalamin (Vitamin B12) 1,000 MCG Tab PO SCH (07:27)
[2023-04-14] MEDS: Acetaminophen 500 MG Tab PO SCH ×3 (07:27→19:16)
[2023-04-14] MEDS: Calcium Carbonate 750 MG Tab.Chew PO SCH (07:28)
[2023-04-14] MEDS: Albuterol/Ipratropium 3.0-0.5 MG/3 ML Neb Soln NEB SCH ×2 (07:28→19:15)
[2023-04-14] MEDS: Citalopram 20 MG Tab PO SCH (07:28)
[2023-04-14] MEDS: Potassium Chloride 20 MEQ Tab.ER PO SCH ×2 (07:28→17:11)
[2023-04-14] MEDS: Polyethylene Glycol 3350 Powder 510 GM Bot PO SCH (07:28)
[2023-04-14] MEDS: Furosemide 20 MG Tab PO SCH ×2 (07:29→11:08)
[2023-04-14] MEDS: BUPROPION 300 MG PO SCH (19:15)
[2023-04-14] MEDS: LEVOTHYROXINE 137 MCG PO SCH (19:16)
[2023-04-14] MEDS: Menthol 10%/Methyl Salicylate 15% 85 GM Tube TOP PRN (19:17)
[2023-04-15] MEDS: Citalopram 20 MG Tab PO SCH (07:41)
[2023-04-15] MEDS: Furosemide 20 MG Tab PO SCH ×2 (07:42→11:47)
[2023-04-15] MEDS: Potassium Chloride 20 MEQ Tab.ER PO SCH ×2 (07:42→18:00)
[2023-04-15] MEDS: Polyethylene Glycol 3350 Powder 510 GM Bot PO SCH (07:43)
[2023-04-15] MEDS: Albuterol/Ipratropium 3.0-0.5 MG/3 ML Neb Soln NEB SCH ×2 (07:43→19:13)
[2023-04-15] MEDS: Calcium Carbonate 750 MG Tab.Chew PO SCH (07:44)
[2023-04-15] MEDS: guaiFENesin 600 MG Tab.ER PO SCH ×2 (07:44→19:14)
[2023-04-15] MEDS: Acetaminophen 500 MG Tab PO SCH ×3 (07:45→19:14)
[2023-04-15] MEDS: Cyanocobalamin (Vitamin B12) 1,000 MCG Tab PO SCH (07:46)
[2023-04-15] MEDS: traMADol 50 MG Tab PO SCH (07:46)
[2023-04-15] MEDS: BUPROPION 300 MG PO SCH (19:13)
[2023-04-15] MEDS: LEVOTHYROXINE 137 MCG PO SCH (19:13)
[2023-04-15] MEDS: Menthol 10%/Methyl Salicylate 15% 85 GM Tube TOP PRN (19:15)
[2023-04-16] MEDS: Citalopram 20 MG Tab PO SCH (07:35)
[2023-04-16] MEDS: Albuterol/Ipratropium 3.0-0.5 MG/3 ML Neb Soln NEB SCH ×2 (07:38→19:27)
[2023-04-16] MEDS: Potassium Chloride 20 MEQ Tab.ER PO SCH ×2 (07:39→17:29)
[2023-04-16] MEDS: Polyethylene Glycol 3350 Powder 510 GM Bot PO SCH (07:40)
[2023-04-16] MEDS: Furosemide 20 MG Tab PO SCH ×2 (07:40→11:33)
[2023-04-16] MEDS: guaiFENesin 600 MG Tab.ER PO SCH ×2 (07:41→19:28)
[2023-04-16] MEDS: Calcium Carbonate 750 MG Tab.Chew PO SCH (07:42)
[2023-04-16] MEDS: Acetaminophen 500 MG Tab PO SCH ×3 (07:43→19:28)
[2023-04-16] MEDS: Cyanocobalamin (Vitamin B12) 1,000 MCG Tab PO SCH (07:44)
[2023-04-16] MEDS: traMADol 50 MG Tab PO SCH (07:44)
[2023-04-16] MEDS: LEVOTHYROXINE 137 MCG PO SCH (19:27)
[2023-04-16] MEDS: Albuterol/Ipratropium 3.0-0.5 MG/3 ML Neb Soln NEB PRN (19:27)
[2023-04-16] MEDS: BUPROPION 300 MG PO SCH (19:28)
[2023-04-17] MEDS: Potassium Chloride 20 MEQ Tab.ER PO SCH ×2 (07:15→17:25)
[2023-04-17] MEDS: Citalopram 20 MG Tab PO SCH (07:16)
[2023-04-17] MEDS: Albuterol/Ipratropium 3.0-0.5 MG/3 ML Neb Soln NEB SCH ×2 (07:17→19:46)
[2023-04-17] MEDS: Polyethylene Glycol 3350 Powder 510 GM Bot PO SCH (07:18)
[2023-04-17] MEDS: guaiFENesin 600 MG Tab.ER PO SCH ×2 (07:19→19:46)
[2023-04-17] MEDS: Calcium Carbonate 750 MG Tab.Chew PO SCH (07:19)
[2023-04-17] MEDS: Acetaminophen 500 MG Tab PO SCH ×3 (07:20→19:47)
[2023-04-17] MEDS: Cyanocobalamin (Vitamin B12) 1,000 MCG Tab PO SCH (07:21)
[2023-04-17] MEDS: traMADol 50 MG Tab PO SCH (07:22)
[2023-04-17] MEDS: Furosemide 20 MG Tab PO SCH ×2 (07:26→11:26)
[2023-04-17] MEDS: LEVOTHYROXINE 137 MCG PO SCH (19:46)
[2023-04-17] MEDS: BUPROPION 300 MG PO SCH (19:47)
[2023-04-18] MEDS: Albuterol/Ipratropium 3.0-0.5 MG/3 ML Neb Soln NEB SCH ×2 (07:12→19:14)
[2023-04-18] MEDS: Furosemide 20 MG Tab PO SCH ×2 (07:13→11:59)
[2023-04-18] MEDS: Potassium Chloride 20 MEQ Tab.ER PO SCH ×2 (07:13→17:00)
[2023-04-18] MEDS: Citalopram 20 MG Tab PO SCH (07:13)
[2023-04-18] MEDS: guaiFENesin 600 MG Tab.ER PO SCH ×2 (07:14→19:15)
[2023-04-18] MEDS: Polyethylene Glycol 3350 Powder 510 GM Bot PO SCH (07:14)
[2023-04-18] MEDS: Calcium Carbonate 750 MG Tab.Chew PO SCH (07:15)
[2023-04-18] MEDS: Acetaminophen 500 MG Tab PO SCH ×3 (07:15→19:15)
[2023-04-18] MEDS: Cyanocobalamin (Vitamin B12) 1,000 MCG Tab PO SCH (07:16)
[2023-04-18] MEDS: traMADol 50 MG Tab PO SCH (07:17)
[2023-04-18] MEDS: BUPROPION 300 MG PO SCH (19:15)
[2023-04-18] MEDS: LEVOTHYROXINE 137 MCG PO SCH (19:15)
[2023-04-18] MEDS: Menthol 10%/Methyl Salicylate 15% 85 GM Tube TOP PRN (19:16)
[2023-04-19] MEDS: Polyethylene Glycol 3350 Powder 510 GM Bot PO SCH (07:13)
[2023-04-19] MEDS: Citalopram 20 MG Tab PO SCH (07:14)
[2023-04-19] MEDS: Potassium Chloride 20 MEQ Tab.ER PO SCH ×2 (07:14→17:07)
[2023-04-19] MEDS: Furosemide 20 MG Tab PO SCH ×2 (07:14→11:38)
[2023-04-19] MEDS: Calcium Carbonate 750 MG Tab.Chew PO SCH (07:15)
[2023-04-19] MEDS: guaiFENesin 600 MG Tab.ER PO SCH ×2 (07:15→19:12)
[2023-04-19] MEDS: Albuterol/Ipratropium 3.0-0.5 MG/3 ML Neb Soln NEB SCH ×2 (07:15→19:09)
[2023-04-19] MEDS: Acetaminophen 500 MG Tab PO SCH ×3 (07:15→19:12)
[2023-04-19] MEDS: traMADol 50 MG Tab PO SCH (07:16)
[2023-04-19] MEDS: Cyanocobalamin (Vitamin B12) 1,000 MCG Tab PO SCH (08:48)
[2023-04-19] MEDS: Menthol 10%/Methyl Salicylate 15% 85 GM Tube TOP PRN (19:11)
[2023-04-19] MEDS: BUPROPION 300 MG PO SCH (19:11)
[2023-04-19] MEDS: LEVOTHYROXINE 137 MCG PO SCH (19:11)
[2023-04-20] MEDS: Potassium Chloride 20 MEQ Tab.ER PO SCH ×2 (07:37→17:01)
[2023-04-20] MEDS: Albuterol/Ipratropium 3.0-0.5 MG/3 ML Neb Soln NEB SCH ×2 (07:37→19:03)
[2023-04-20] MEDS: Citalopram 20 MG Tab PO SCH (07:37)
[2023-04-20] MEDS: Polyethylene Glycol 3350 Powder 510 GM Bot PO SCH (07:38)
[2023-04-20] MEDS: Cyanocobalamin (Vitamin B12) 1,000 MCG Tab PO SCH (07:38)
[2023-04-20] MEDS: guaiFENesin 600 MG Tab.ER PO SCH ×2 (07:38→19:05)
[2023-04-20] MEDS: Calcium Carbonate 750 MG Tab.Chew PO SCH (07:38)
[2023-04-20] MEDS: Furosemide 20 MG Tab PO SCH ×2 (07:38→11:31)
[2023-04-20] MEDS: Acetaminophen 500 MG Tab PO SCH ×3 (07:39→19:04)
[2023-04-20] MEDS: traMADol 50 MG Tab PO SCH (07:39)
[2023-04-20] MEDS: LEVOTHYROXINE 137 MCG PO SCH (19:03)
[2023-04-20] MEDS: BUPROPION 300 MG PO SCH (19:03)
[2023-04-20] MEDS: Menthol 10%/Methyl Salicylate 15% 85 GM Tube TOP PRN (19:05)
[2023-04-21] MEDS: Albuterol/Ipratropium 3.0-0.5 MG/3 ML Neb Soln NEB SCH ×2 (07:18→19:16)
[2023-04-21] MEDS: Potassium Chloride 20 MEQ Tab.ER PO SCH ×2 (07:19→17:09)
[2023-04-21] MEDS: Citalopram 20 MG Tab PO SCH (07:19)
[2023-04-21] MEDS: Furosemide 20 MG Tab PO SCH ×2 (07:19→11:41)
[2023-04-21] MEDS: Cyanocobalamin (Vitamin B12) 1,000 MCG Tab PO SCH (07:20)
[2023-04-21] MEDS: Acetaminophen 500 MG Tab PO SCH ×3 (07:20→19:17)
[2023-04-21] MEDS: guaiFENesin 600 MG Tab.ER PO SCH ×2 (07:20→19:16)
[2023-04-21] MEDS: Polyethylene Glycol 3350 Powder 510 GM Bot PO SCH (07:20)
[2023-04-21] MEDS: traMADol 50 MG Tab PO SCH (07:22)
[2023-04-21] MEDS: Calcium Carbonate 750 MG Tab.Chew PO SCH (07:22)
[2023-04-21] MEDS: BUPROPION 300 MG PO SCH (19:16)
[2023-04-21] MEDS: LEVOTHYROXINE 137 MCG PO SCH (19:16)
[2023-04-21] MEDS: Menthol 10%/Methyl Salicylate 15% 85 GM Tube TOP PRN (19:17)
[2023-04-21] MEDS: guaiFENesin/Dextromethorphan 100-10 MG/5 ML Soln 10 ML Cup PO PRN (21:57)
[2023-04-22] MEDS: Polyethylene Glycol 3350 Powder 510 GM Bot PO SCH (07:40)
[2023-04-22] MEDS: Acetaminophen 500 MG Tab PO SCH ×3 (07:41→19:50)
[2023-04-22] MEDS: traMADol 50 MG Tab PO SCH (07:41)
[2023-04-22] MEDS: Cyanocobalamin (Vitamin B12) 1,000 MCG Tab PO SCH (07:42)
[2023-04-22] MEDS: guaiFENesin 600 MG Tab.ER PO SCH ×2 (07:42→19:49)
[2023-04-22] MEDS: Calcium Carbonate 750 MG Tab.Chew PO SCH (07:42)
[2023-04-22] MEDS: Potassium Chloride 20 MEQ Tab.ER PO SCH ×2 (07:43→17:08)
[2023-04-22] MEDS: Citalopram 20 MG Tab PO SCH (07:43)
[2023-04-22] MEDS: Albuterol/Ipratropium 3.0-0.5 MG/3 ML Neb Soln NEB SCH ×2 (07:43→19:45)
[2023-04-22] MEDS: Furosemide 20 MG Tab PO SCH ×2 (07:43→11:17)
[2023-04-22] MEDS: Hydrocortisone 1% Crm 30 GM Tube TOP SCH (19:47)
[2023-04-22] MEDS: LEVOTHYROXINE 137 MCG PO SCH (19:49)
[2023-04-22] MEDS: BUPROPION 300 MG PO SCH (19:50)
[2023-04-23] MEDS: Polyethylene Glycol 3350 Powder 510 GM Bot PO SCH (07:15)
[2023-04-23] MEDS: Calcium Carbonate 750 MG Tab.Chew PO SCH (07:16)
[2023-04-23] MEDS: traMADol 50 MG Tab PO SCH (07:16)
[2023-04-23] MEDS: Cyanocobalamin (Vitamin B12) 1,000 MCG Tab PO SCH (07:16)
[2023-04-23] MEDS: Acetaminophen 500 MG Tab PO SCH ×3 (07:17→19:19)
[2023-04-23] MEDS: guaiFENesin 600 MG Tab.ER PO SCH ×2 (07:18→19:18)
[2023-04-23] MEDS: Hydrocortisone 1% Crm 30 GM Tube TOP SCH ×2 (07:18→19:16)
[2023-04-23] MEDS: Albuterol/Ipratropium 3.0-0.5 MG/3 ML Neb Soln NEB SCH ×2 (07:18→19:16)
[2023-04-23] MEDS: Citalopram 20 MG Tab PO SCH (07:18)
[2023-04-23] MEDS: Potassium Chloride 20 MEQ Tab.ER PO SCH ×2 (07:19→17:08)
[2023-04-23] MEDS: Furosemide 20 MG Tab PO SCH ×3 (07:22→11:01)
[2023-04-23] MEDS: LEVOTHYROXINE 137 MCG PO SCH (19:18)
[2023-04-23] MEDS: BUPROPION 300 MG PO SCH (19:19)
[2023-04-24] MEDS: guaiFENesin 600 MG Tab.ER PO SCH ×2 (07:23→19:37)
[2023-04-24] MEDS: Polyethylene Glycol 3350 Powder 510 GM Bot PO SCH (07:23)
[2023-04-24] MEDS: Acetaminophen 500 MG Tab PO SCH ×3 (07:24→19:37)
[2023-04-24] MEDS: traMADol 50 MG Tab PO SCH (07:24)
[2023-04-24] MEDS: Calcium Carbonate 750 MG Tab.Chew PO SCH (07:25)
[2023-04-24] MEDS: Cyanocobalamin (Vitamin B12) 1,000 MCG Tab PO SCH (07:25)
[2023-04-24] MEDS: Hydrocortisone 1% Crm 30 GM Tube TOP SCH ×2 (07:25→19:35)
[2023-04-24] MEDS: Albuterol/Ipratropium 3.0-0.5 MG/3 ML Neb Soln NEB SCH ×2 (07:26→19:34)
[2023-04-24] MEDS: Potassium Chloride 20 MEQ Tab.ER PO SCH ×2 (07:26→17:47)
[2023-04-24] MEDS: Citalopram 20 MG Tab PO SCH (07:26)
[2023-04-24] MEDS: Furosemide 20 MG Tab PO SCH ×3 (07:26→11:07)
[2023-04-24] MEDS: BUPROPION 300 MG PO SCH (19:36)
[2023-04-24] MEDS: LEVOTHYROXINE 137 MCG PO SCH (19:36)
[2023-04-25] MEDS: Citalopram 20 MG Tab PO SCH (07:18)
[2023-04-25] MEDS: Furosemide 20 MG Tab PO SCH ×3 (07:19→11:28)
[2023-04-25] MEDS: Potassium Chloride 20 MEQ Tab.ER PO SCH ×2 (07:19→17:28)
[2023-04-25] MEDS: guaiFENesin 600 MG Tab.ER PO SCH ×2 (07:21→19:40)
[2023-04-25] MEDS: Polyethylene Glycol 3350 Powder 510 GM Bot PO SCH (07:21)
[2023-04-25] MEDS: Calcium Carbonate 750 MG Tab.Chew PO SCH (07:21)
[2023-04-25] MEDS: Acetaminophen 500 MG Tab PO SCH ×3 (07:22→19:41)
[2023-04-25] MEDS: Cyanocobalamin (Vitamin B12) 1,000 MCG Tab PO SCH (07:23)
[2023-04-25] MEDS: traMADol 50 MG Tab PO SCH (07:24)
[2023-04-25] MEDS: Hydrocortisone 1% Crm 30 GM Tube TOP SCH ×2 (07:25→19:47)
[2023-04-25] MEDS: Albuterol/Ipratropium 3.0-0.5 MG/3 ML Neb Soln NEB SCH ×2 (07:26→19:39)
[2023-04-25] MEDS: LEVOTHYROXINE 137 MCG PO SCH (19:40)
[2023-04-25] MEDS: BUPROPION 300 MG PO SCH (19:41)
[2023-04-26] MEDS: Potassium Chloride 20 MEQ Tab.ER PO SCH ×2 (07:05→17:08)
[2023-04-26] MEDS: Citalopram 20 MG Tab PO SCH (07:06)
[2023-04-26] MEDS: Furosemide 20 MG Tab PO SCH ×2 (07:06→11:48)
[2023-04-26] MEDS: Albuterol/Ipratropium 3.0-0.5 MG/3 ML Neb Soln NEB SCH ×2 (07:07→19:33)
[2023-04-26] MEDS: Hydrocortisone 1% Crm 30 GM Tube TOP SCH ×2 (07:07→19:34)
[2023-04-26] MEDS: Polyethylene Glycol 3350 Powder 510 GM Bot PO SCH (07:08)
[2023-04-26] MEDS: guaiFENesin 600 MG Tab.ER PO SCH ×2 (07:08→19:35)
[2023-04-26] MEDS: Acetaminophen 500 MG Tab PO SCH ×3 (07:09→19:35)
[2023-04-26] MEDS: Calcium Carbonate 750 MG Tab.Chew PO SCH (07:09)
[2023-04-26] MEDS: traMADol 50 MG Tab PO SCH (07:10)
[2023-04-26] MEDS: Cyanocobalamin (Vitamin B12) 1,000 MCG Tab PO SCH (07:11)
[2023-04-26] MEDS: LEVOTHYROXINE 137 MCG PO SCH (19:34)
[2023-04-26] MEDS: BUPROPION 300 MG PO SCH (19:35)
[2023-04-27] MEDS: Furosemide 20 MG Tab PO SCH ×2 (08:48→12:09)
[2023-04-27] MEDS: Citalopram 20 MG Tab PO SCH (08:48)
[2023-04-27] MEDS: Potassium Chloride 20 MEQ Tab.ER PO SCH ×2 (08:48→17:07)
[2023-04-27] MEDS: Albuterol/Ipratropium 3.0-0.5 MG/3 ML Neb Soln NEB SCH ×2 (08:49→19:55)
[2023-04-27] MEDS: Polyethylene Glycol 3350 Powder 510 GM Bot PO SCH (08:50)
[2023-04-27] MEDS: Cyanocobalamin (Vitamin B12) 1,000 MCG Tab PO SCH (08:51)
[2023-04-27] MEDS: Acetaminophen 500 MG Tab PO SCH ×3 (08:51→19:57)
[2023-04-27] MEDS: Calcium Carbonate 750 MG Tab.Chew PO SCH (08:52)
[2023-04-27] MEDS: guaiFENesin 600 MG Tab.ER PO SCH ×2 (08:52→19:56)
[2023-04-27] MEDS: traMADol 50 MG Tab PO SCH (08:54)
[2023-04-27] MEDS: Hydrocortisone 1% Crm 30 GM Tube TOP SCH ×2 (08:56→19:55)
[2023-04-27] MEDS: Menthol 10%/Methyl Salicylate 15% 85 GM Tube TOP PRN (09:30)
[2023-04-27] MEDS: BUPROPION 300 MG PO SCH (19:56)
[2023-04-27] MEDS: LEVOTHYROXINE 137 MCG PO SCH (19:56)
[2023-04-28] MEDS: Citalopram 20 MG Tab PO SCH (07:38)
[2023-04-28] MEDS: Albuterol/Ipratropium 3.0-0.5 MG/3 ML Neb Soln NEB SCH ×2 (07:38→20:14)
[2023-04-28] MEDS: Hydrocortisone 1% Crm 30 GM Tube TOP SCH ×2 (07:39→20:15)
[2023-04-28] MEDS: Potassium Chloride 20 MEQ Tab.ER PO SCH ×2 (07:40→17:23)
[2023-04-28] MEDS: Furosemide 20 MG Tab PO SCH ×2 (07:41→11:41)
[2023-04-28] MEDS: guaiFENesin 600 MG Tab.ER PO SCH ×2 (07:42→20:16)
[2023-04-28] MEDS: Polyethylene Glycol 3350 Powder 510 GM Bot PO SCH (07:42)
[2023-04-28] MEDS: Calcium Carbonate 750 MG Tab.Chew PO SCH (07:43)
[2023-04-28] MEDS: Acetaminophen 500 MG Tab PO SCH ×3 (07:43→20:17)
[2023-04-28] MEDS: traMADol 50 MG Tab PO SCH (07:45)
[2023-04-28] MEDS: Cyanocobalamin (Vitamin B12) 1,000 MCG Tab PO SCH (07:46)
[2023-04-28] MEDS: LEVOTHYROXINE 137 MCG PO SCH (20:16)
[2023-04-28] MEDS: BUPROPION 300 MG PO SCH (20:16)
[2023-04-29] MEDS: Polyethylene Glycol 3350 Powder 510 GM Bot PO SCH (07:28)
[2023-04-29] MEDS: traMADol 50 MG Tab PO SCH (07:29)
[2023-04-29] MEDS: Calcium Carbonate 750 MG Tab.Chew PO SCH (07:30)
[2023-04-29] MEDS: Acetaminophen 500 MG Tab PO SCH ×3 (07:30→19:23)
[2023-04-29] MEDS: guaiFENesin 600 MG Tab.ER PO SCH ×2 (07:31→19:23)
[2023-04-29] MEDS: Albuterol/Ipratropium 3.0-0.5 MG/3 ML Neb Soln NEB SCH ×2 (07:31→19:24)
[2023-04-29] MEDS: Citalopram 20 MG Tab PO SCH (07:31)
[2023-04-29] MEDS: Potassium Chloride 20 MEQ Tab.ER PO SCH ×2 (07:32→17:24)
[2023-04-29] MEDS: Hydrocortisone 1% Crm 30 GM Tube TOP SCH (07:32)
[2023-04-29] MEDS: Furosemide 20 MG Tab PO SCH ×2 (07:32→11:20)
[2023-04-29] MEDS: Cyanocobalamin (Vitamin B12) 1,000 MCG Tab PO SCH (07:33)
[2023-04-29] MEDS: LEVOTHYROXINE 137 MCG PO SCH (19:22)
[2023-04-29] MEDS: BUPROPION 300 MG PO SCH (19:22)
[2023-04-30] MEDS: Citalopram 20 MG Tab PO SCH (07:25)
[2023-04-30] MEDS: Furosemide 20 MG Tab PO SCH ×2 (07:25→11:30)
[2023-04-30] MEDS: Albuterol/Ipratropium 3.0-0.5 MG/3 ML Neb Soln NEB SCH ×2 (07:25→19:32)
[2023-04-30] MEDS: Potassium Chloride 20 MEQ Tab.ER PO SCH ×2 (07:25→17:50)
[2023-04-30] MEDS: Polyethylene Glycol 3350 Powder 510 GM Bot PO SCH (07:29)
[2023-04-30] MEDS: guaiFENesin 600 MG Tab.ER PO SCH ×2 (07:30→19:33)
[2023-04-30] MEDS: Acetaminophen 500 MG Tab PO SCH ×3 (07:31→19:34)
[2023-04-30] MEDS: Calcium Carbonate 750 MG Tab.Chew PO SCH (07:31)
[2023-04-30] MEDS: traMADol 50 MG Tab PO SCH (07:33)
[2023-04-30] MEDS: Cyanocobalamin (Vitamin B12) 1,000 MCG Tab PO SCH (07:34)
[2023-04-30] MEDS: LEVOTHYROXINE 137 MCG PO SCH (19:32)
[2023-04-30] MEDS: BUPROPION 300 MG PO SCH (19:33)
[2023-05-01] MEDS: Citalopram 20 MG Tab PO SCH (07:25)
[2023-05-01] MEDS: Potassium Chloride 20 MEQ Tab.ER PO SCH ×2 (07:26→17:12)
[2023-05-01] MEDS: Furosemide 20 MG Tab PO SCH ×2 (07:26→11:34)
[2023-05-01] MEDS: Albuterol/Ipratropium 3.0-0.5 MG/3 ML Neb Soln NEB SCH ×2 (07:26→19:02)
[2023-05-01] MEDS: Polyethylene Glycol 3350 Powder 510 GM Bot PO SCH (07:27)
[2023-05-01] MEDS: guaiFENesin 600 MG Tab.ER PO SCH ×2 (07:27→19:03)
[2023-05-01] MEDS: Calcium Carbonate 750 MG Tab.Chew PO SCH (07:28)
[2023-05-01] MEDS: Acetaminophen 500 MG Tab PO SCH ×3 (07:28→19:03)
[2023-05-01] MEDS: traMADol 50 MG Tab PO SCH (07:30)
[2023-05-01] MEDS: Cyanocobalamin (Vitamin B12) 1,000 MCG Tab PO SCH (07:31)
[2023-05-01] MEDS: BUPROPION 300 MG PO SCH (19:03)
[2023-05-01] MEDS: LEVOTHYROXINE 137 MCG PO SCH (19:03)
[2023-05-02] MEDS: Polyethylene Glycol 3350 Powder 510 GM Bot PO SCH (07:13)
[2023-05-02] MEDS: Acetaminophen 500 MG Tab PO SCH ×3 (07:15→19:14)
[2023-05-02] MEDS: traMADol 50 MG Tab PO SCH (07:15)
[2023-05-02] MEDS: Calcium Carbonate 750 MG Tab.Chew PO SCH (07:16)
[2023-05-02] MEDS: Cyanocobalamin (Vitamin B12) 1,000 MCG Tab PO SCH (07:16)
[2023-05-02] MEDS: guaiFENesin 600 MG Tab.ER PO SCH ×2 (07:17→19:13)
[2023-05-02] MEDS: Potassium Chloride 20 MEQ Tab.ER PO SCH ×2 (07:17→17:11)
[2023-05-02] MEDS: Albuterol/Ipratropium 3.0-0.5 MG/3 ML Neb Soln NEB SCH ×2 (07:17→19:12)
[2023-05-02] MEDS: Citalopram 20 MG Tab PO SCH (07:17)
[2023-05-02] MEDS: Furosemide 20 MG Tab PO SCH ×2 (07:18→11:21)
[2023-05-02] MEDS: LEVOTHYROXINE 137 MCG PO SCH (19:12)
[2023-05-02] MEDS: BUPROPION 300 MG PO SCH (19:13)
[2023-05-02] MEDS: Menthol 10%/Methyl Salicylate 15% 85 GM Tube TOP PRN (19:14)
[2023-05-03] MEDS: Polyethylene Glycol 3350 Powder 510 GM Bot PO SCH (07:15)
[2023-05-03] MEDS: traMADol 50 MG Tab PO SCH (07:16)
[2023-05-03] MEDS: Acetaminophen 500 MG Tab PO SCH ×3 (07:16→19:06)
[2023-05-03] MEDS: Albuterol/Ipratropium 3.0-0.5 MG/3 ML Neb Soln NEB SCH ×2 (07:17→19:05)
[2023-05-03] MEDS: Cyanocobalamin (Vitamin B12) 1,000 MCG Tab PO SCH (07:17)
[2023-05-03] MEDS: guaiFENesin 600 MG Tab.ER PO SCH ×2 (07:17→19:05)
[2023-05-03] MEDS: Calcium Carbonate 750 MG Tab.Chew PO SCH (07:18)
[2023-05-03] MEDS: Potassium Chloride 20 MEQ Tab.ER PO SCH ×2 (07:18→17:16)
[2023-05-03] MEDS: Furosemide 20 MG Tab PO SCH ×2 (07:18→11:26)
[2023-05-03] MEDS: Citalopram 20 MG Tab PO SCH (07:18)
[2023-05-03] MEDS: LEVOTHYROXINE 137 MCG PO SCH (19:05)
[2023-05-03] MEDS: BUPROPION 300 MG PO SCH (19:05)
[2023-05-03] MEDS: Menthol 10%/Methyl Salicylate 15% 85 GM Tube TOP PRN (19:06)
[2023-05-04] MEDS: Cyanocobalamin (Vitamin B12) 1,000 MCG Tab PO SCH (07:25)
[2023-05-04] MEDS: Polyethylene Glycol 3350 Powder 510 GM Bot PO SCH (07:25)
[2023-05-04] MEDS: Albuterol/Ipratropium 3.0-0.5 MG/3 ML Neb Soln NEB SCH ×2 (07:26→19:10)
[2023-05-04] MEDS: guaiFENesin 600 MG Tab.ER PO SCH ×2 (07:26→19:12)
[2023-05-04] MEDS: Calcium Carbonate 750 MG Tab.Chew PO SCH (07:26)
[2023-05-04] MEDS: traMADol 50 MG Tab PO SCH (07:28)
[2023-05-04] MEDS: Potassium Chloride 20 MEQ Tab.ER PO SCH ×2 (07:29→17:04)
[2023-05-04] MEDS: Citalopram 20 MG Tab PO SCH (07:29)
[2023-05-04] MEDS: Acetaminophen 500 MG Tab PO SCH ×3 (07:29→19:12)
[2023-05-04] MEDS: Furosemide 20 MG Tab PO SCH ×2 (07:30→11:15)
[2023-05-04] MEDS: Menthol 10%/Methyl Salicylate 15% 85 GM Tube TOP PRN (19:10)
[2023-05-04] MEDS: BUPROPION 300 MG PO SCH (19:11)
[2023-05-04] MEDS: LEVOTHYROXINE 137 MCG PO SCH (19:11)
[2023-05-05] MEDS: Polyethylene Glycol 3350 Powder 510 GM Bot PO SCH (07:04)
[2023-05-05] MEDS: traMADol 50 MG Tab PO SCH (07:05)
[2023-05-05] MEDS: Acetaminophen 500 MG Tab PO SCH ×3 (07:06→19:12)
[2023-05-05] MEDS: guaiFENesin 600 MG Tab.ER PO SCH ×2 (07:07→19:11)
[2023-05-05] MEDS: Albuterol/Ipratropium 3.0-0.5 MG/3 ML Neb Soln NEB SCH ×2 (07:07→19:11)
[2023-05-05] MEDS: Citalopram 20 MG Tab PO SCH (07:08)
[2023-05-05] MEDS: Furosemide 20 MG Tab PO SCH ×2 (07:08→11:15)
[2023-05-05] MEDS: Potassium Chloride 20 MEQ Tab.ER PO SCH ×2 (07:08→17:27)
[2023-05-05] MEDS: Calcium Carbonate 750 MG Tab.Chew PO SCH (07:09)
[2023-05-05] MEDS: Cyanocobalamin (Vitamin B12) 1,000 MCG Tab PO SCH (07:09)
[2023-05-05] MEDS: LEVOTHYROXINE 137 MCG PO SCH (19:12)
[2023-05-05] MEDS: BUPROPION 300 MG PO SCH (19:12)
[2023-05-05] MEDS: Menthol 10%/Methyl Salicylate 15% 85 GM Tube TOP PRN (19:14)
[2023-05-06] MEDS: Citalopram 20 MG Tab PO SCH (08:07)
[2023-05-06] MEDS: Furosemide 20 MG Tab PO SCH ×2 (08:08→12:05)
[2023-05-06] MEDS: Potassium Chloride 20 MEQ Tab.ER PO SCH ×2 (08:08→17:14)
[2023-05-06] MEDS: Albuterol/Ipratropium 3.0-0.5 MG/3 ML Neb Soln NEB SCH ×2 (08:08→19:08)
[2023-05-06] MEDS: Calcium Carbonate 750 MG Tab.Chew PO SCH (08:09)
[2023-05-06] MEDS: guaiFENesin 600 MG Tab.ER PO SCH ×2 (08:09→19:10)
[2023-05-06] MEDS: Polyethylene Glycol 3350 Powder 510 GM Bot PO SCH (08:09)
[2023-05-06] MEDS: Acetaminophen 500 MG Tab PO SCH ×3 (08:10→19:10)
[2023-05-06] MEDS: traMADol 50 MG Tab PO SCH (08:12)
[2023-05-06] MEDS: Cyanocobalamin (Vitamin B12) 1,000 MCG Tab PO SCH (08:13)
[2023-05-06] MEDS: LEVOTHYROXINE 137 MCG PO SCH (19:09)
[2023-05-06] MEDS: BUPROPION 300 MG PO SCH (19:09)
[2023-05-06] MEDS: Menthol 10%/Methyl Salicylate 15% 85 GM Tube TOP PRN (19:10)
[2023-05-07] MEDS: Cyanocobalamin (Vitamin B12) 1,000 MCG Tab PO SCH (08:10)
[2023-05-07] MEDS: Citalopram 20 MG Tab PO SCH (08:22)
[2023-05-07] MEDS: Albuterol/Ipratropium 3.0-0.5 MG/3 ML Neb Soln NEB SCH ×2 (08:22→19:07)
[2023-05-07] MEDS: Potassium Chloride 20 MEQ Tab.ER PO SCH ×2 (08:23→17:22)
[2023-05-07] MEDS: Furosemide 20 MG Tab PO SCH ×2 (08:23→12:22)
[2023-05-07] MEDS: Polyethylene Glycol 3350 Powder 510 GM Bot PO SCH (08:23)
[2023-05-07] MEDS: Calcium Carbonate 750 MG Tab.Chew PO SCH (08:24)
[2023-05-07] MEDS: guaiFENesin 600 MG Tab.ER PO SCH ×2 (08:24→19:08)
[2023-05-07] MEDS: Acetaminophen 500 MG Tab PO SCH ×3 (08:25→19:08)
[2023-05-07] MEDS: traMADol 50 MG Tab PO SCH (08:26)
[2023-05-07] MEDS: BUPROPION 300 MG PO SCH (19:07)
[2023-05-07] MEDS: LEVOTHYROXINE 137 MCG PO SCH (19:07)
[2023-05-07] MEDS: Menthol 10%/Methyl Salicylate 15% 85 GM Tube TOP PRN (19:09)
[2023-05-08] MEDS: Cyanocobalamin (Vitamin B12) 1,000 MCG Tab PO SCH (08:05)
[2023-05-08] MEDS: traMADol 50 MG Tab PO SCH (08:10)
[2023-05-08] MEDS: Albuterol/Ipratropium 3.0-0.5 MG/3 ML Neb Soln NEB SCH ×2 (08:33→19:09)
[2023-05-08] MEDS: Furosemide 20 MG Tab PO SCH ×2 (08:33→12:08)
[2023-05-08] MEDS: Potassium Chloride 20 MEQ Tab.ER PO SCH ×2 (08:33→17:56)
[2023-05-08] MEDS: Citalopram 20 MG Tab PO SCH (08:33)
[2023-05-08] MEDS: Calcium Carbonate 750 MG Tab.Chew PO SCH (08:34)
[2023-05-08] MEDS: guaiFENesin 600 MG Tab.ER PO SCH ×2 (08:34→19:13)
[2023-05-08] MEDS: Polyethylene Glycol 3350 Powder 510 GM Bot PO SCH (08:34)
[2023-05-08] MEDS: Acetaminophen 500 MG Tab PO SCH ×3 (08:35→19:10)
[2023-05-08] MEDS: LEVOTHYROXINE 137 MCG PO SCH (19:09)
[2023-05-08] MEDS: BUPROPION 300 MG PO SCH (19:09)
[2023-05-08] MEDS: Menthol 10%/Methyl Salicylate 15% 85 GM Tube TOP PRN (19:14)
[2023-05-09] MEDS: Citalopram 20 MG Tab PO SCH (07:53)
[2023-05-09] MEDS: Furosemide 20 MG Tab PO SCH ×2 (07:54→11:34)
[2023-05-09] MEDS: Potassium Chloride 20 MEQ Tab.ER PO SCH ×2 (07:54→17:15)
[2023-05-09] MEDS: Albuterol/Ipratropium 3.0-0.5 MG/3 ML Neb Soln NEB SCH ×2 (07:55→20:05)
[2023-05-09] MEDS: Polyethylene Glycol 3350 Powder 510 GM Bot PO SCH (08:04)
[2023-05-09] MEDS: guaiFENesin 600 MG Tab.ER PO SCH ×2 (08:04→20:06)
[2023-05-09] MEDS: Calcium Carbonate 750 MG Tab.Chew PO SCH (08:04)
[2023-05-09] MEDS: Acetaminophen 500 MG Tab PO SCH ×3 (08:05→20:06)
[2023-05-09] MEDS: traMADol 50 MG Tab PO SCH (08:06)
[2023-05-09] MEDS: Cyanocobalamin (Vitamin B12) 1,000 MCG Tab PO SCH (08:07)
[2023-05-09] MEDS: LEVOTHYROXINE 137 MCG PO SCH (20:05)
[2023-05-09] MEDS: BUPROPION 300 MG PO SCH (20:06)
[2023-05-10] MEDS: Citalopram 20 MG Tab PO SCH (07:49)
[2023-05-10] MEDS: Potassium Chloride 20 MEQ Tab.ER PO SCH ×2 (07:49→17:24)
[2023-05-10] MEDS: Albuterol/Ipratropium 3.0-0.5 MG/3 ML Neb Soln NEB SCH ×2 (07:50→19:41)
[2023-05-10] MEDS: Furosemide 20 MG Tab PO SCH ×2 (07:51→11:28)
[2023-05-10] MEDS: guaiFENesin 600 MG Tab.ER PO SCH ×2 (07:52→19:41)
[2023-05-10] MEDS: Calcium Carbonate 750 MG Tab.Chew PO SCH (07:52)
[2023-05-10] MEDS: Polyethylene Glycol 3350 Powder 510 GM Bot PO SCH (07:52)
[2023-05-10] MEDS: Acetaminophen 500 MG Tab PO SCH ×3 (07:53→19:42)
[2023-05-10] MEDS: traMADol 50 MG Tab PO SCH (07:54)
[2023-05-10] MEDS: Cyanocobalamin (Vitamin B12) 1,000 MCG Tab PO SCH (07:54)
[2023-05-10] MEDS: LEVOTHYROXINE 137 MCG PO SCH (19:41)
[2023-05-10] MEDS: BUPROPION 300 MG PO SCH (19:42)
[2023-05-11] MEDS: Citalopram 20 MG Tab PO SCH (07:20)
[2023-05-11] MEDS: Albuterol/Ipratropium 3.0-0.5 MG/3 ML Neb Soln NEB PRN (07:21)
[2023-05-11] MEDS: Potassium Chloride 20 MEQ Tab.ER PO SCH ×2 (07:21→17:35)
[2023-05-11] MEDS: Albuterol/Ipratropium 3.0-0.5 MG/3 ML Neb Soln NEB SCH ×2 (07:21→19:09)
[2023-05-11] MEDS: Polyethylene Glycol 3350 Powder 510 GM Bot PO SCH (07:22)
[2023-05-11] MEDS: Furosemide 20 MG Tab PO SCH ×2 (07:22→11:16)
[2023-05-11] MEDS: Calcium Carbonate 750 MG Tab.Chew PO SCH (07:23)
[2023-05-11] MEDS: guaiFENesin 600 MG Tab.ER PO SCH ×2 (07:23→19:10)
[2023-05-11] MEDS: Acetaminophen 500 MG Tab PO SCH ×3 (07:23→19:11)
[2023-05-11] MEDS: traMADol 50 MG Tab PO SCH (07:25)
[2023-05-11] MEDS: Cyanocobalamin (Vitamin B12) 1,000 MCG Tab PO SCH (07:26)
[2023-05-11] MEDS: LEVOTHYROXINE 137 MCG PO SCH (19:09)
[2023-05-11] MEDS: BUPROPION 300 MG PO SCH (19:10)
[2023-05-12] MEDS: Potassium Chloride 20 MEQ Tab.ER PO SCH ×2 (07:11→17:17)
[2023-05-12] MEDS: Citalopram 20 MG Tab PO SCH (07:11)
[2023-05-12] MEDS: Furosemide 20 MG Tab PO SCH ×2 (07:11→11:37)
[2023-05-12] MEDS: Polyethylene Glycol 3350 Powder 510 GM Bot PO SCH (07:14)
[2023-05-12] MEDS: Albuterol/Ipratropium 3.0-0.5 MG/3 ML Neb Soln NEB SCH ×2 (07:14→19:08)
[2023-05-12] MEDS: Calcium Carbonate 750 MG Tab.Chew PO SCH (07:16)
[2023-05-12] MEDS: guaiFENesin 600 MG Tab.ER PO SCH ×2 (07:16→19:08)
[2023-05-12] MEDS: Acetaminophen 500 MG Tab PO SCH ×3 (07:17→19:09)
[2023-05-12] MEDS: Cyanocobalamin (Vitamin B12) 1,000 MCG Tab PO SCH (07:17)
[2023-05-12] MEDS: traMADol 50 MG Tab PO SCH (07:18)
[2023-05-12] MEDS: BUPROPION 300 MG PO SCH (19:08)
[2023-05-12] MEDS: LEVOTHYROXINE 137 MCG PO SCH (19:08)
[2023-05-12] MEDS: Menthol 10%/Methyl Salicylate 15% 85 GM Tube TOP PRN (19:10)
[2023-05-13] MEDS: Potassium Chloride 20 MEQ Tab.ER PO SCH ×2 (08:25→17:52)
[2023-05-13] MEDS: Albuterol/Ipratropium 3.0-0.5 MG/3 ML Neb Soln NEB SCH ×2 (08:25→19:08)
[2023-05-13] MEDS: Citalopram 20 MG Tab PO SCH (08:25)
[2023-05-13] MEDS: Furosemide 20 MG Tab PO SCH ×2 (08:26→12:08)
[2023-05-13] MEDS: guaiFENesin 600 MG Tab.ER PO SCH ×2 (08:26→19:09)
[2023-05-13] MEDS: Polyethylene Glycol 3350 Powder 510 GM Bot PO SCH (08:26)
[2023-05-13] MEDS: Calcium Carbonate 750 MG Tab.Chew PO SCH (08:27)
[2023-05-13] MEDS: Acetaminophen 500 MG Tab PO SCH ×3 (08:27→19:10)
[2023-05-13] MEDS: traMADol 50 MG Tab PO SCH (08:28)
[2023-05-13] MEDS: Cyanocobalamin (Vitamin B12) 1,000 MCG Tab PO SCH (08:30)
[2023-05-13] MEDS: LEVOTHYROXINE 137 MCG PO SCH (19:09)
[2023-05-13] MEDS: BUPROPION 300 MG PO SCH (19:09)
[2023-05-13] MEDS: Menthol 10%/Methyl Salicylate 15% 85 GM Tube TOP PRN (19:10)
[2023-05-14] MEDS: Polyethylene Glycol 3350 Powder 510 GM Bot PO SCH (07:44)
[2023-05-14] MEDS: traMADol 50 MG Tab PO SCH (07:48)
[2023-05-14] MEDS: guaiFENesin 600 MG Tab.ER PO SCH ×2 (07:51→19:13)
[2023-05-14] MEDS: Acetaminophen 500 MG Tab PO SCH ×3 (07:51→19:13)
[2023-05-14] MEDS: Calcium Carbonate 750 MG Tab.Chew PO SCH (07:52)
[2023-05-14] MEDS: Albuterol/Ipratropium 3.0-0.5 MG/3 ML Neb Soln NEB SCH ×2 (07:52→19:12)
[2023-05-14] MEDS: Citalopram 20 MG Tab PO SCH (07:53)
[2023-05-14] MEDS: Furosemide 20 MG Tab PO SCH ×2 (07:53→11:06)
[2023-05-14] MEDS: Potassium Chloride 20 MEQ Tab.ER PO SCH ×2 (07:53→17:13)
[2023-05-14] MEDS: Cyanocobalamin (Vitamin B12) 1,000 MCG Tab PO SCH (07:54)
[2023-05-14] MEDS: Menthol 10%/Methyl Salicylate 15% 85 GM Tube TOP PRN ×2 (13:50→19:14)
[2023-05-14] MEDS: LEVOTHYROXINE 137 MCG PO SCH (19:12)
[2023-05-14] MEDS: BUPROPION 300 MG PO SCH (19:13)
[2023-05-15] MEDS: traMADol 50 MG Tab PO SCH (07:26)
[2023-05-15] MEDS: Polyethylene Glycol 3350 Powder 510 GM Bot PO SCH (07:26)
[2023-05-15] MEDS: Acetaminophen 500 MG Tab PO SCH ×3 (07:27→19:42)
[2023-05-15] MEDS: guaiFENesin 600 MG Tab.ER PO SCH ×2 (07:27→19:41)
[2023-05-15] MEDS: Albuterol/Ipratropium 3.0-0.5 MG/3 ML Neb Soln NEB SCH ×2 (07:28→19:40)
[2023-05-15] MEDS: Citalopram 20 MG Tab PO SCH (07:28)
[2023-05-15] MEDS: Potassium Chloride 20 MEQ Tab.ER PO SCH ×2 (07:28→17:11)
[2023-05-15] MEDS: Furosemide 20 MG Tab PO SCH ×2 (07:28→11:11)
[2023-05-15] MEDS: Cyanocobalamin (Vitamin B12) 1,000 MCG Tab PO SCH (07:29)
[2023-05-15] MEDS: Calcium Carbonate 750 MG Tab.Chew PO SCH (07:29)
[2023-05-15] MEDS: BUPROPION 300 MG PO SCH (19:41)
[2023-05-15] MEDS: LEVOTHYROXINE 137 MCG PO SCH (19:41)
[2023-05-16] MEDS: Citalopram 20 MG Tab PO SCH (07:49)
[2023-05-16] MEDS: Potassium Chloride 20 MEQ Tab.ER PO SCH ×2 (07:50→17:09)
[2023-05-16] MEDS: Albuterol/Ipratropium 3.0-0.5 MG/3 ML Neb Soln NEB SCH ×2 (07:50→19:09)
[2023-05-16] MEDS: Polyethylene Glycol 3350 Powder 510 GM Bot PO SCH (07:51)
[2023-05-16] MEDS: guaiFENesin 600 MG Tab.ER PO SCH ×2 (07:51→19:09)
[2023-05-16] MEDS: Furosemide 20 MG Tab PO SCH ×2 (07:51→12:04)
[2023-05-16] MEDS: Acetaminophen 500 MG Tab PO SCH ×3 (07:52→19:10)
[2023-05-16] MEDS: Calcium Carbonate 750 MG Tab.Chew PO SCH (07:52)
[2023-05-16] MEDS: traMADol 50 MG Tab PO SCH (07:54)
[2023-05-16] MEDS: Cyanocobalamin (Vitamin B12) 1,000 MCG Tab PO SCH (07:55)
[2023-05-16] MEDS: LEVOTHYROXINE 137 MCG PO SCH (19:09)
[2023-05-16] MEDS: BUPROPION 300 MG PO SCH (19:09)
[2023-05-16] MEDS: Menthol 10%/Methyl Salicylate 15% 85 GM Tube TOP PRN (19:11)
[2023-05-17] MEDS: Furosemide 20 MG Tab PO SCH ×2 (07:27→12:30)
[2023-05-17] MEDS: Potassium Chloride 20 MEQ Tab.ER PO SCH ×2 (07:27→17:26)
[2023-05-17] MEDS: Citalopram 20 MG Tab PO SCH (07:27)
[2023-05-17] MEDS: Albuterol/Ipratropium 3.0-0.5 MG/3 ML Neb Soln NEB SCH ×2 (07:28→19:06)
[2023-05-17] MEDS: Polyethylene Glycol 3350 Powder 510 GM Bot PO SCH (07:29)
[2023-05-17] MEDS: Cyanocobalamin (Vitamin B12) 1,000 MCG Tab PO SCH (07:29)
[2023-05-17] MEDS: Calcium Carbonate 750 MG Tab.Chew PO SCH (07:30)
[2023-05-17] MEDS: guaiFENesin 600 MG Tab.ER PO SCH ×2 (07:30→19:08)
[2023-05-17] MEDS: Acetaminophen 500 MG Tab PO SCH ×3 (07:30→19:08)
[2023-05-17] MEDS: traMADol 50 MG Tab PO SCH (07:32)
[2023-05-17] MEDS: Aluminum Hydroxide/Magnesium Hydroxide/Simethicone Susp 30 ML Cup PO PRN (09:47)
[2023-05-17] MEDS: BUPROPION 300 MG PO SCH (19:07)
[2023-05-17] MEDS: LEVOTHYROXINE 137 MCG PO SCH (19:07)
[2023-05-18] MEDS: Citalopram 20 MG Tab PO SCH (08:18)
[2023-05-18] MEDS: Furosemide 20 MG Tab PO SCH ×2 (08:18→12:12)
[2023-05-18] MEDS: Albuterol/Ipratropium 3.0-0.5 MG/3 ML Neb Soln NEB SCH ×2 (08:18→19:26)
[2023-05-18] MEDS: Potassium Chloride 20 MEQ Tab.ER PO SCH ×2 (08:18→17:22)
[2023-05-18] MEDS: Polyethylene Glycol 3350 Powder 510 GM Bot PO SCH (08:19)
[2023-05-18] MEDS: guaiFENesin 600 MG Tab.ER PO SCH ×2 (08:19→19:26)
[2023-05-18] MEDS: Calcium Carbonate 750 MG Tab.Chew PO SCH (08:20)
[2023-05-18] MEDS: Acetaminophen 500 MG Tab PO SCH ×3 (08:20→19:27)
[2023-05-18] MEDS: traMADol 50 MG Tab PO SCH (08:21)
[2023-05-18] MEDS: Cyanocobalamin (Vitamin B12) 1,000 MCG Tab PO SCH (08:23)
[2023-05-18] MEDS: Menthol 10%/Methyl Salicylate 15% 85 GM Tube TOP PRN (15:26)
[2023-05-18] MEDS: LEVOTHYROXINE 137 MCG PO SCH (19:26)
[2023-05-18] MEDS: BUPROPION 300 MG PO SCH (19:27)
[2023-05-19] MEDS: Furosemide 20 MG Tab PO SCH ×2 (07:35→11:59)
[2023-05-19] MEDS: Potassium Chloride 20 MEQ Tab.ER PO SCH ×2 (07:41→17:34)
[2023-05-19] MEDS: Albuterol/Ipratropium 3.0-0.5 MG/3 ML Neb Soln NEB SCH ×2 (07:41→19:17)
[2023-05-19] MEDS: Citalopram 20 MG Tab PO SCH (07:41)
[2023-05-19] MEDS: Polyethylene Glycol 3350 Powder 510 GM Bot PO SCH (07:42)
[2023-05-19] MEDS: guaiFENesin 600 MG Tab.ER PO SCH ×2 (07:43→19:18)
[2023-05-19] MEDS: Calcium Carbonate 750 MG Tab.Chew PO SCH (07:46)
[2023-05-19] MEDS: Acetaminophen 500 MG Tab PO SCH ×3 (07:46→19:19)
[2023-05-19] MEDS: Cyanocobalamin (Vitamin B12) 1,000 MCG Tab PO SCH (07:47)
[2023-05-19] MEDS: traMADol 50 MG Tab PO SCH (07:48)
[2023-05-19] MEDS: LEVOTHYROXINE 137 MCG PO SCH (19:18)
[2023-05-19] MEDS: BUPROPION 300 MG PO SCH (19:18)
[2023-05-19] MEDS: Menthol 10%/Methyl Salicylate 15% 85 GM Tube TOP PRN (19:20)
[2023-05-20] MEDS: traMADol 50 MG Tab PO PRN (00:12)
[2023-05-20] MEDS: Polyethylene Glycol 3350 Powder 510 GM Bot PO SCH (07:35)
[2023-05-20] MEDS: Acetaminophen 500 MG Tab PO SCH ×3 (07:36→19:13)
[2023-05-20] MEDS: traMADol 50 MG Tab PO SCH (07:36)
[2023-05-20] MEDS: guaiFENesin 600 MG Tab.ER PO SCH ×2 (07:37→19:12)
[2023-05-20] MEDS: Cyanocobalamin (Vitamin B12) 1,000 MCG Tab PO SCH (07:37)
[2023-05-20] MEDS: Calcium Carbonate 750 MG Tab.Chew PO SCH (07:37)
[2023-05-20] MEDS: Furosemide 20 MG Tab PO SCH ×2 (07:38→11:19)
[2023-05-20] MEDS: Albuterol/Ipratropium 3.0-0.5 MG/3 ML Neb Soln NEB SCH ×2 (07:38→19:12)
[2023-05-20] MEDS: Potassium Chloride 20 MEQ Tab.ER PO SCH ×2 (07:38→17:13)
[2023-05-20] MEDS: Citalopram 20 MG Tab PO SCH (07:38)
[2023-05-20] MEDS: BUPROPION 300 MG PO SCH (19:12)
[2023-05-20] MEDS: LEVOTHYROXINE 137 MCG PO SCH (19:12)
[2023-05-20] MEDS: Menthol 10%/Methyl Salicylate 15% 85 GM Tube TOP PRN (19:14)
[2023-05-21] MEDS: Cyanocobalamin (Vitamin B12) 1,000 MCG Tab PO SCH (08:45)
[2023-05-21] MEDS: Furosemide 20 MG Tab PO SCH ×2 (08:51→12:16)
[2023-05-21] MEDS: Citalopram 20 MG Tab PO SCH (08:51)
[2023-05-21] MEDS: Polyethylene Glycol 3350 Powder 510 GM Bot PO SCH (08:51)
[2023-05-21] MEDS: Potassium Chloride 20 MEQ Tab.ER PO SCH ×2 (08:51→17:19)
[2023-05-21] MEDS: Calcium Carbonate 750 MG Tab.Chew PO SCH (08:52)
[2023-05-21] MEDS: guaiFENesin 600 MG Tab.ER PO SCH ×2 (08:52→19:00)
[2023-05-21] MEDS: Acetaminophen 500 MG Tab PO SCH ×3 (08:53→19:00)
[2023-05-21] MEDS: traMADol 50 MG Tab PO SCH (08:54)
[2023-05-21] MEDS: Albuterol/Ipratropium 3.0-0.5 MG/3 ML Neb Soln NEB SCH ×2 (08:54→18:59)
[2023-05-21] MEDS: Menthol 10%/Methyl Salicylate 15% 85 GM Tube TOP PRN (18:58)
[2023-05-21] MEDS: LEVOTHYROXINE 137 MCG PO SCH (18:59)
[2023-05-21] MEDS: BUPROPION 300 MG PO SCH (18:59)
[2023-05-22] MEDS: Citalopram 20 MG Tab PO SCH (08:19)
[2023-05-22] MEDS: Albuterol/Ipratropium 3.0-0.5 MG/3 ML Neb Soln NEB SCH ×2 (08:20→19:26)
[2023-05-22] MEDS: Polyethylene Glycol 3350 Powder 510 GM Bot PO SCH (08:20)
[2023-05-22] MEDS: Furosemide 20 MG Tab PO SCH ×2 (08:20→12:13)
[2023-05-22] MEDS: Potassium Chloride 20 MEQ Tab.ER PO SCH ×2 (08:20→17:48)
[2023-05-22] MEDS: guaiFENesin 600 MG Tab.ER PO SCH ×2 (08:21→19:27)
[2023-05-22] MEDS: Acetaminophen 500 MG Tab PO SCH ×3 (08:21→19:28)
[2023-05-22] MEDS: Calcium Carbonate 750 MG Tab.Chew PO SCH (08:21)
[2023-05-22] MEDS: Cyanocobalamin (Vitamin B12) 1,000 MCG Tab PO SCH (08:22)
[2023-05-22] MEDS: traMADol 50 MG Tab PO SCH (08:23)
[2023-05-22] MEDS: LEVOTHYROXINE 137 MCG PO SCH (19:26)
[2023-05-22] MEDS: BUPROPION 300 MG PO SCH (19:27)
[2023-05-23] MEDS: Albuterol/Ipratropium 3.0-0.5 MG/3 ML Neb Soln NEB SCH ×2 (07:35→19:13)
[2023-05-23] MEDS: traMADol 50 MG Tab PO SCH (07:35)
[2023-05-23] MEDS: guaiFENesin 600 MG Tab.ER PO SCH ×2 (07:36→19:13)
[2023-05-23] MEDS: Cyanocobalamin (Vitamin B12) 1,000 MCG Tab PO SCH (07:36)
[2023-05-23] MEDS: Acetaminophen 500 MG Tab PO SCH ×3 (07:36→19:14)
[2023-05-23] MEDS: Polyethylene Glycol 3350 Powder 510 GM Bot PO SCH (07:37)
[2023-05-23] MEDS: Citalopram 20 MG Tab PO SCH (07:37)
[2023-05-23] MEDS: Potassium Chloride 20 MEQ Tab.ER PO SCH ×2 (07:37→17:03)
[2023-05-23] MEDS: Calcium Carbonate 750 MG Tab.Chew PO SCH (07:38)
[2023-05-23] MEDS: Furosemide 20 MG Tab PO SCH ×2 (07:38→11:17)
[2023-05-23] MEDS: LEVOTHYROXINE 137 MCG PO SCH (19:12)
[2023-05-23] MEDS: BUPROPION 300 MG PO SCH (19:13)
[2023-05-24] MEDS: Polyethylene Glycol 3350 Powder 510 GM Bot PO SCH (07:25)
[2023-05-24] MEDS: traMADol 50 MG Tab PO SCH (07:26)
[2023-05-24] MEDS: Acetaminophen 500 MG Tab PO SCH ×3 (07:26→19:34)
[2023-05-24] MEDS: Cyanocobalamin (Vitamin B12) 1,000 MCG Tab PO SCH (07:27)
[2023-05-24] MEDS: Calcium Carbonate 750 MG Tab.Chew PO SCH (07:27)
[2023-05-24] MEDS: guaiFENesin 600 MG Tab.ER PO SCH ×2 (07:27→19:34)
[2023-05-24] MEDS: Albuterol/Ipratropium 3.0-0.5 MG/3 ML Neb Soln NEB SCH ×2 (07:28→19:41)
[2023-05-24] MEDS: Furosemide 20 MG Tab PO SCH ×2 (07:28→11:03)
[2023-05-24] MEDS: Citalopram 20 MG Tab PO SCH (07:28)
[2023-05-24] MEDS: Potassium Chloride 20 MEQ Tab.ER PO SCH ×2 (07:28→17:09)
[2023-05-24] MEDS: BUPROPION 300 MG PO SCH (19:32)
[2023-05-24] MEDS: LEVOTHYROXINE 137 MCG PO SCH (19:33)
[2023-05-25] MEDS: Polyethylene Glycol 3350 Powder 510 GM Bot PO SCH (07:17)
[2023-05-25] MEDS: traMADol 50 MG Tab PO SCH (07:18)
[2023-05-25] MEDS: Acetaminophen 500 MG Tab PO SCH ×3 (07:18→19:40)
[2023-05-25] MEDS: guaiFENesin 600 MG Tab.ER PO SCH ×2 (07:19→19:39)
[2023-05-25] MEDS: Cyanocobalamin (Vitamin B12) 1,000 MCG Tab PO SCH (07:19)
[2023-05-25] MEDS: Calcium Carbonate 750 MG Tab.Chew PO SCH (07:20)
[2023-05-25] MEDS: Furosemide 20 MG Tab PO SCH ×2 (07:20→11:08)
[2023-05-25] MEDS: Citalopram 20 MG Tab PO SCH (07:20)
[2023-05-25] MEDS: Potassium Chloride 20 MEQ Tab.ER PO SCH ×2 (07:20→17:15)
[2023-05-25] MEDS: Albuterol/Ipratropium 3.0-0.5 MG/3 ML Neb Soln NEB SCH ×2 (07:20→19:39)
[2023-05-25] MEDS: LEVOTHYROXINE 137 MCG PO SCH (19:38)
[2023-05-25] MEDS: BUPROPION 300 MG PO SCH (19:38)
[2023-05-26] MEDS: Citalopram 20 MG Tab PO SCH (07:17)
[2023-05-26] MEDS: Potassium Chloride 20 MEQ Tab.ER PO SCH ×2 (07:17→17:28)
[2023-05-26] MEDS: Albuterol/Ipratropium 3.0-0.5 MG/3 ML Neb Soln NEB SCH ×2 (07:17→19:16)
[2023-05-26] MEDS: Furosemide 20 MG Tab PO SCH ×2 (07:17→12:12)
[2023-05-26] MEDS: Polyethylene Glycol 3350 Powder 510 GM Bot PO SCH (07:18)
[2023-05-26] MEDS: guaiFENesin 600 MG Tab.ER PO SCH ×2 (07:18→19:17)
[2023-05-26] MEDS: Acetaminophen 500 MG Tab PO SCH ×3 (07:19→19:18)
[2023-05-26] MEDS: Calcium Carbonate 750 MG Tab.Chew PO SCH (07:19)
[2023-05-26] MEDS: traMADol 50 MG Tab PO SCH (07:23)
[2023-05-26] MEDS: Cyanocobalamin (Vitamin B12) 1,000 MCG Tab PO SCH (07:24)
[2023-05-26] MEDS: LEVOTHYROXINE 137 MCG PO SCH (19:17)
[2023-05-26] MEDS: BUPROPION 300 MG PO SCH (19:17)
[2023-05-27] MEDS: traMADol 50 MG Tab PO SCH (07:34)
[2023-05-27] MEDS: Polyethylene Glycol 3350 Powder 510 GM Bot PO SCH (07:34)
[2023-05-27] MEDS: Acetaminophen 500 MG Tab PO SCH ×3 (07:35→19:43)
[2023-05-27] MEDS: Calcium Carbonate 750 MG Tab.Chew PO SCH (07:36)
[2023-05-27] MEDS: Cyanocobalamin (Vitamin B12) 1,000 MCG Tab PO SCH (07:36)
[2023-05-27] MEDS: guaiFENesin 600 MG Tab.ER PO SCH ×2 (07:36→19:42)
[2023-05-27] MEDS: Potassium Chloride 20 MEQ Tab.ER PO SCH ×2 (07:37→17:17)
[2023-05-27] MEDS: Furosemide 20 MG Tab PO SCH ×2 (07:37→11:26)
[2023-05-27] MEDS: Citalopram 20 MG Tab PO SCH (07:37)
[2023-05-27] MEDS: Albuterol/Ipratropium 3.0-0.5 MG/3 ML Neb Soln NEB SCH ×2 (07:37→19:42)
[2023-05-27] MEDS: LEVOTHYROXINE 137 MCG PO SCH (19:42)
[2023-05-27] MEDS: BUPROPION 300 MG PO SCH (19:43)
[2023-05-28] MEDS: Citalopram 20 MG Tab PO SCH (08:16)
[2023-05-28] MEDS: Albuterol/Ipratropium 3.0-0.5 MG/3 ML Neb Soln NEB SCH ×3 (08:16→21:00)
[2023-05-28] MEDS: Potassium Chloride 20 MEQ Tab.ER PO SCH ×2 (08:17→18:12)
[2023-05-28] MEDS: Polyethylene Glycol 3350 Powder 510 GM Bot PO SCH (08:17)
[2023-05-28] MEDS: Furosemide 20 MG Tab PO SCH ×2 (08:17→12:17)
[2023-05-28] MEDS: Calcium Carbonate 750 MG Tab.Chew PO SCH (08:18)
[2023-05-28] MEDS: Acetaminophen 500 MG Tab PO SCH ×3 (08:18→20:13)
[2023-05-28] MEDS: guaiFENesin 600 MG Tab.ER PO SCH ×2 (08:18→19:56)
[2023-05-28] MEDS: traMADol 50 MG Tab PO SCH (08:21)
[2023-05-28] MEDS: Cyanocobalamin (Vitamin B12) 1,000 MCG Tab PO SCH (08:21)
[2023-05-28 10:08] LABS: MEAN CORPUSCULAR HEMOGLOBIN 34.8 pg (28.2-33.3); MEAN CORPUSCULAR HGB CONC 32.6 g/dL (31.7-36.0); PLATELET COUNT,PLT 203 K/uL (150-350); RED BLOOD CELL COUNT 4.02 M/uL (3.77-5.09); RED CELL DISTRIBUTION WIDTH 14.1 % (11.2-14.1); WHITE BLOOD CELL COUNT,WBC 7.6 K/uL (4.0-10.2)
[2023-05-28 11:25] LABS: POTASSIUM,POC 3.8 mmol/L (3.5-4.5)
[2023-05-28 11:27] LABS: CALCIUM IONIZED,POC 1.21 mmol/L (1.12-1.32); CREATININE,POC 0.36 mg/dL (0.51-1.19)
[2023-05-28 15:24] LABS: APPEARANCE,URINE SLIGHTLY CLOUDY; BILIRUBIN,URINE NEGATIVE (NEGATIVE); COLOR,URINE YELLOW; GLUCOSE,URINE NEGATIVE (NEGATIVE); KETONES,URINE NEGATIVE (NEGATIVE); LEUKOCYTE ESTERASE,URINE NEGATIVE (NEGATIVE); NITRITE,URINE POSITIVE (NEGATIVE); OCCULT BLOOD,URINE MODERATE (NEGATIVE); PROTEIN,URINE NEGATIVE (NEGATIVE); UROBILINOGEN,URINE 0.2 E.U./dL (0.2-1.0)
[2023-05-28 15:29] LABS: BACTERIA,URINE MODERATE /HPF (NONE TO FEW); EPITHELIAL CELLS,URINE MODERATE /LPF; WBC,URINE 0-5 /HPF
[2023-05-28] MEDS: Sulfamethoxazole/Trimethoprim 800-160 MG Tab PO SCH (17:39)
[2023-05-28] MEDS: LEVOTHYROXINE 137 MCG PO SCH (19:55)
[2023-05-28] MEDS: BUPROPION 300 MG PO SCH (19:56)
[2023-05-28] MEDS: Menthol 10%/Methyl Salicylate 15% 85 GM Tube TOP PRN (19:57)
[2023-05-28] MEDS: traMADol 50 MG Tab PO PRN (22:49)
[2023-05-29] MEDS: Aluminum Hydroxide/Magnesium Hydroxide/Simethicone Susp 30 ML Cup PO PRN (03:47)
[2023-05-29] MEDS: Albuterol/Ipratropium 3.0-0.5 MG/3 ML Neb Soln NEB SCH ×3 (07:46→21:00)
[2023-05-29] MEDS: Potassium Chloride 20 MEQ Tab.ER PO SCH ×2 (07:46→17:20)
[2023-05-29] MEDS: Citalopram 20 MG Tab PO SCH (07:46)
[2023-05-29] MEDS: Furosemide 20 MG Tab PO SCH ×2 (07:47→12:07)
[2023-05-29] MEDS: guaiFENesin 600 MG Tab.ER PO SCH ×2 (07:47→19:31)
[2023-05-29] MEDS: Polyethylene Glycol 3350 Powder 510 GM Bot PO SCH (07:47)
[2023-05-29] MEDS: Sulfamethoxazole/Trimethoprim 800-160 MG Tab PO SCH ×2 (07:48→17:22)
[2023-05-29] MEDS: Calcium Carbonate 750 MG Tab.Chew PO SCH (07:49)
[2023-05-29] MEDS: Acetaminophen 500 MG Tab PO SCH ×3 (07:49→19:31)
[2023-05-29] MEDS: traMADol 50 MG Tab PO SCH (07:50)
[2023-05-29] MEDS: Cyanocobalamin (Vitamin B12) 1,000 MCG Tab PO SCH (08:11)
[2023-05-29] MEDS: PHENAZOPYRIDINE 100 MG PO SCH (17:21)
[2023-05-29] MEDS: LEVOTHYROXINE 137 MCG PO SCH (19:31)
[2023-05-29] MEDS: BUPROPION 300 MG PO SCH (19:31)
[2023-05-29] MEDS: traMADol 50 MG Tab PO PRN (20:45)
[2023-05-30] MEDS: Albuterol/Ipratropium 3.0-0.5 MG/3 ML Neb Soln NEB SCH ×2 (08:18→19:16)
[2023-05-30] MEDS: Potassium Chloride 20 MEQ Tab.ER PO SCH ×2 (08:18→17:26)
[2023-05-30] MEDS: Citalopram 20 MG Tab PO SCH (08:18)
[2023-05-30] MEDS: Furosemide 20 MG Tab PO SCH ×2 (08:20→13:17)
[2023-05-30] MEDS: PHENAZOPYRIDINE 100 MG PO SCH ×3 (08:21→17:27)
[2023-05-30] MEDS: Sulfamethoxazole/Trimethoprim 800-160 MG Tab PO SCH ×2 (08:21→17:27)
[2023-05-30] MEDS: Polyethylene Glycol 3350 Powder 510 GM Bot PO SCH (08:21)
[2023-05-30] MEDS: guaiFENesin 600 MG Tab.ER PO SCH ×2 (08:21→19:16)
[2023-05-30] MEDS: Calcium Carbonate 750 MG Tab.Chew PO SCH (08:23)
[2023-05-30] MEDS: Acetaminophen 500 MG Tab PO SCH ×3 (08:24→19:16)
[2023-05-30] MEDS: Cyanocobalamin (Vitamin B12) 1,000 MCG Tab PO SCH (08:25)
[2023-05-30] MEDS: traMADol 50 MG Tab PO SCH (08:26)
[2023-05-30] MEDS: Furosemide 40 MG Tab PO SCH ×2 (12:48→17:28)
[2023-05-30] MEDS: BUPROPION 300 MG PO SCH (19:16)
[2023-05-30] MEDS: LEVOTHYROXINE 137 MCG PO SCH (19:16)
[2023-05-30] MEDS: Menthol 10%/Methyl Salicylate 15% 85 GM Tube TOP PRN (19:19)
[2023-05-30] MEDS: traMADol 50 MG Tab PO PRN (20:25)
[2023-05-31] MEDS: Menthol 10%/Methyl Salicylate 15% 85 GM Tube TOP PRN ×2 (02:26→19:20)
[2023-05-31] MEDS: Citalopram 20 MG Tab PO SCH (07:36)
[2023-05-31] MEDS: Potassium Chloride 20 MEQ Tab.ER PO SCH ×2 (07:36→17:17)
[2023-05-31] MEDS: Polyethylene Glycol 3350 Powder 510 GM Bot PO SCH (07:37)
[2023-05-31] MEDS: Furosemide 40 MG Tab PO SCH ×2 (07:37→17:19)
[2023-05-31] MEDS: PHENAZOPYRIDINE 100 MG PO SCH ×2 (07:38→11:45)
[2023-05-31] MEDS: Sulfamethoxazole/Trimethoprim 800-160 MG Tab PO SCH ×2 (07:38→17:18)
[2023-05-31] MEDS: Albuterol/Ipratropium 3.0-0.5 MG/3 ML Neb Soln NEB SCH ×2 (07:39→19:12)
[2023-05-31] MEDS: guaiFENesin 600 MG Tab.ER PO SCH ×2 (07:40→19:14)
[2023-05-31] MEDS: Acetaminophen 500 MG Tab PO SCH ×3 (07:40→19:14)
[2023-05-31] MEDS: Cyanocobalamin (Vitamin B12) 1,000 MCG Tab PO SCH (07:40)
[2023-05-31] MEDS: Calcium Carbonate 750 MG Tab.Chew PO SCH (07:40)
[2023-05-31] MEDS: traMADol 50 MG Tab PO SCH (07:41)
[2023-05-31] MEDS: LEVOTHYROXINE 137 MCG PO SCH (19:13)
[2023-05-31] MEDS: BUPROPION 300 MG PO SCH (19:13)
[2023-06-01] MEDS: Albuterol/Ipratropium 3.0-0.5 MG/3 ML Neb Soln NEB SCH ×2 (07:19→19:09)
[2023-06-01] MEDS: Potassium Chloride 20 MEQ Tab.ER PO SCH ×2 (07:19→17:12)
[2023-06-01] MEDS: Citalopram 20 MG Tab PO SCH (07:19)
[2023-06-01] MEDS: Sulfamethoxazole/Trimethoprim 800-160 MG Tab PO SCH ×2 (07:20→17:13)
[2023-06-01] MEDS: Furosemide 40 MG Tab PO SCH ×2 (07:20→17:12)
[2023-06-01] MEDS: Polyethylene Glycol 3350 Powder 510 GM Bot PO SCH (07:20)
[2023-06-01] MEDS: Acetaminophen 500 MG Tab PO SCH ×3 (07:22→19:09)
[2023-06-01] MEDS: guaiFENesin 600 MG Tab.ER PO SCH ×2 (07:22→19:08)
[2023-06-01] MEDS: Cyanocobalamin (Vitamin B12) 1,000 MCG Tab PO SCH (07:23)
[2023-06-01] MEDS: Calcium Carbonate 750 MG Tab.Chew PO SCH (07:23)
[2023-06-01] MEDS: traMADol 50 MG Tab PO SCH (07:24)
[2023-06-01] MEDS: Albuterol/Ipratropium 3.0-0.5 MG/3 ML Neb Soln NEB PRN (13:38)
[2023-06-01] MEDS: BUPROPION 300 MG PO SCH (19:08)
[2023-06-01] MEDS: LEVOTHYROXINE 137 MCG PO SCH (19:08)
[2023-06-01] MEDS: Menthol 10%/Methyl Salicylate 15% 85 GM Tube TOP PRN (19:10)
[2023-06-02] MEDS: Menthol 10%/Methyl Salicylate 15% 85 GM Tube TOP PRN ×2 (04:35→19:04)
[2023-06-02] MEDS: Potassium Chloride 20 MEQ Tab.ER PO SCH ×2 (07:11→17:27)
[2023-06-02] MEDS: Citalopram 20 MG Tab PO SCH (07:11)
[2023-06-02] MEDS: Polyethylene Glycol 3350 Powder 510 GM Bot PO SCH (07:11)
[2023-06-02] MEDS: Albuterol/Ipratropium 3.0-0.5 MG/3 ML Neb Soln NEB SCH ×2 (07:11→19:03)
[2023-06-02] MEDS: Sulfamethoxazole/Trimethoprim 800-160 MG Tab PO SCH (07:12)
[2023-06-02] MEDS: guaiFENesin 600 MG Tab.ER PO SCH ×2 (07:13→19:04)
[2023-06-02] MEDS: Cyanocobalamin (Vitamin B12) 1,000 MCG Tab PO SCH (07:13)
[2023-06-02] MEDS: Calcium Carbonate 750 MG Tab.Chew PO SCH (07:14)
[2023-06-02] MEDS: Acetaminophen 500 MG Tab PO SCH ×3 (07:14→18:59)
[2023-06-02] MEDS: traMADol 50 MG Tab PO SCH (07:15)
[2023-06-02 10:42] LABS: ANION GAP 4.3 meq/L (7-15); CALCIUM 9.6 mg/dL (8.5-10.1); CARBON DIOXIDE,CO2 30.7 mmol/L (21.0-32.0); CREATININE 0.75 mg/dL (0.51-1.17); EST CRCL DRUG DOSING (CG) 72.81 mL/min; POTASSIUM,K 4.5 mmol/L (3.5-5.1)
[2023-06-02] MEDS: Furosemide 40 MG Tab PO SCH (17:28)
[2023-06-02] MEDS: BUPROPION 300 MG PO SCH (19:03)
[2023-06-02] MEDS: LEVOTHYROXINE 137 MCG PO SCH (19:03)
[2023-06-03] MEDS: Albuterol/Ipratropium 3.0-0.5 MG/3 ML Neb Soln NEB SCH (07:44)
[2023-06-03] MEDS: Potassium Chloride 20 MEQ Tab.ER PO SCH (07:45)
[2023-06-03] MEDS: Furosemide 40 MG Tab PO SCH (07:45)
[2023-06-03] MEDS: Citalopram 20 MG Tab PO SCH (07:45)
[2023-06-03] MEDS: Polyethylene Glycol 3350 Powder 510 GM Bot PO SCH (07:46)
[2023-06-03] MEDS: Calcium Carbonate 750 MG Tab.Chew PO SCH (07:46)
[2023-06-03] MEDS: Cyanocobalamin (Vitamin B12) 1,000 MCG Tab PO SCH (07:46)
[2023-06-03] MEDS: Acetaminophen 500 MG Tab PO SCH (07:46)
[2023-06-03] MEDS: guaiFENesin 600 MG Tab.ER PO SCH (07:46)
[2023-06-03] MEDS: traMADol 50 MG Tab PO SCH (07:47)
[2023-06-03 09:40] VITALS: BP 100/56; PULSE 59
[~2023-06-03 10:26] MED LIST changes: -Bisacodyl 5 MG Tab PO ONE; +Bisacodyl 5 MG Tab PO PRN; -FLU Vacc QS2019-20(6MOS+)/PF 60 MCG/0.5 ML SYRINGE IM ONE; +Furosemide 20 MG Tab PO SCH; +Furosemide 40 MG Tab PO ONE; -Furosemide 40 MG/4 ML VIAL IM ONE; +LORazepam 1 MG Tab PO ONE; +Loperamide 2 MG Tab PO PRN; +Nitrofurantoin Monohydrate/Macrocrystalline 100 MG Cap PO SCH; -Polyethylene Glycol 3350 Powder 238 GM Bot PO ONE; +Polyvinyl Alcohol 1.4% Ophth Soln 15 ML Bottle EYEBOTH PRN; -Zinc Oxide 20% Oint 56.7 GM Tube TOP SCH; -metroNIDAZOLE 500 MG Tab PO SCH
== END | DRG 91 ==
LOC: LL.SWG 05-23 13:20
PROVIDERS: ADMIT Nurse Practitioner Family; ATTEND Nurse Practitioner Family
DX: G71.11 Myotonic muscular dystrophy (principal); U07.1 COVID-19; E87.1 Hypo-osmolality and hyponatremia; R53.1 Weakness; K21.9 Gastro-esophageal reflux disease without esophagitis; J43.1 Panlobular emphysema; Z66 Do not resuscitate; E03.9 Hypothyroidism, unspecified; Z51.5 Encounter for palliative care; Z20.822 Contact with and (suspected) exposure to COVID-19; F41.8 Other specified anxiety disorders; M19.90 Unspecified osteoarthritis, unspecified site; R22.0 Localized swelling, mass and lump, head; E78.5 Hyperlipidemia, unspecified; F41.9 Anxiety disorder, unspecified; F32.A Depression, unspecified; E88.09 Other disorders of plasma-protein metabolism, not elsewhere classified; E61.1 Iron deficiency; I95.1 Orthostatic hypotension; G24.01 Drug induced subacute dyskinesia; E87.6 Hypokalemia; E83.39 Other disorders of phosphorus metabolism; R73.9 Hyperglycemia, unspecified; D75.89 Other specified diseases of blood and blood-forming organs; Z99.81 Dependence on supplemental oxygen; Z88.0 Allergy status to penicillin; Z88.8 Allergy status to other drugs, medicaments and biological substances; Z90.710 Acquired absence of both cervix and uterus; Z90.49 Acquired absence of other specified parts of digestive tract; Z98.49 Cataract extraction status, unspecified eye
CPT/HCPCS: 0241U; 36415; 51701; 71046; 76536; 80047; 80048; 80053; 81001; 81003; 82728; 83540; 83550; 83880; 84443; 85025; 85027; 87086; 87088; 87186; 90686; 94640; 94760; 94761; 94762; 97110-GP; 97162-GP; 97530-GP; A9270-GY; G0008; J7620-GY; U0002

== ENCOUNTER 2024-05-16 16:10 | Emergency (ER) | payer MEDICAID ==
[2024-05-16] MEDS: Lidocaine 2% HCl 11 ML Jelly Filled Syringe ONE (16:39)
[2024-05-16] MEDS: Morphine 2 MG/ML SYRINGE IVPUSH ONE (17:07)
[2024-05-16] MEDS: Sodium Chloride 0.9% 500 ML IV SCH (17:09)
[2024-05-16] MEDS: Lidocaine 2% HCl 11 ML Jelly Filled Syringe TOP ONE (17:11)
[2024-05-16 18:00] VITALS: BP 144/79; PULSE 90
== END 2024-05-16 18:05 ==
LOC: LL.ED 16:10
DX: R53.83 Other fatigue (principal); R06.89 Other abnormalities of breathing; R62.7 Adult failure to thrive; I11.0 Hypertensive heart disease with heart failure; I50.9 Heart failure, unspecified; J44.9 Chronic obstructive pulmonary disease, unspecified; K21.9 Gastro-esophageal reflux disease without esophagitis; E03.9 Hypothyroidism, unspecified; E78.00 Pure hypercholesterolemia, unspecified; Z88.0 Allergy status to penicillin; Z91.048 Other nonmedicinal substance allergy status; Z88.8 Allergy status to other drugs, medicaments and biological substances; Z79.51 Long term (current) use of inhaled steroids; Z79.899 Other long term (current) drug therapy; Z90.49 Acquired absence of other specified parts of digestive tract; Z90.710 Acquired absence of both cervix and uterus
CPT/HCPCS: 70450; 71045; 96374; 99285; A9270; J2270; J7040